=== PATIENT | female | born 1945 | race Two or more races ===

== ENCOUNTER → 2016-04-04 | Outpatient (CLI) | payer MEDICARE ==
[~2016-04-04] MED LIST: ASPI325T PO; ATEN100T PO; ATOR1TAB21 PO; BAYE1TAB5 PO; BROV15NE IN; BUDE0.254 INH; DOXY100C PO; FERR325T3 PO; GABA600T PO; GLIP10TA6 PO; HYDR-3713 PO; HYDR12CA PO; INSULANT SC; INVO300T PO; KETO10TAB PO; LISI10TA4 PO; METF1000 PO; NEUR300C PO; NYST100024 TOP; POLY33502 PO; VITA500046 PO; ZOLO100T PO
--- NOTE | 2016-04-04 15:19 | REP ---
Clinical: Follow-up effusion and infiltrates . Comparison: 12/22/2015 . Technique: PA and lateral. Findings: The mediastinum and cardiac silhouette are normal. The lung ferrell are clear and without acute consolidation, effusion, or pneumothorax. Previous right lower lobe consolidation and effusion has resolved. The skeletal structures are intact and normal. Impression: No acute cardiopulmonary process. Complete resolution to the previous basilar infiltrate and effusion. Signed by Danis Greenfield MD 04/04/2016 03:10 P
== END ==
LOC: M SMT 14:47
PROVIDERS: ATTEND Internal Medicine Pulmonary Disease
DX: J90 Pleural effusion, not elsewhere classified (principal)

== ENCOUNTER → 2016-06-04 | Outpatient (REF) | payer MEDICARE | LOC: M LAB REF 17:05 | PROVIDERS: ATTEND Urology | DX: C67.9 Malignant neoplasm of bladder, unspecified (principal) ==

== ENCOUNTER 2016-07-24 08:13 | Inpatient (IN) | payer MEDICARE ==
[~2016-07-24] VITALS: Ht 160 cm; Wt 55.7 kg
[2016-07-24] VITALS (27 sets, daily range): BP systolic 77–148; BP diastolic 42–66; O2SAT 94
[2016-07-24] MEDS ORDERED: NS 500 ML IV ONE ×3 (08:45→22:00)
[2016-07-24] MEDS ORDERED: HEPARIN SOD (PORCINE) 5000 UNITS/ML VIAL SC SCH (09:00)
[2016-07-24] MEDS: DOCUSATE SODIUM 100 MG CAP PO SCH ×2 (09:00→21:00)
[2016-07-24] MEDS: MOM 30ML SUSPENSION UDC PO SCH (09:00)
[2016-07-24 09:07] LABS: MEAN CORPUSCULAR HEMOGLOBIN 29.2 pg (27.0-33.0); MEAN CORPUSCULAR HGB CONC 31.9 g/dl (32.0-36.5); MEAN CORPUSCULAR VOLUME 91.7 fl (80.0-96.0); PLATELET COUNT, AUTOMATED 107 k/mm3 (150-450); RED CELL DISTRIBUTION WIDTH 14.7 % (11.5-14.5); WHITE BLOOD COUNT 16.2 K/mm3 (4.0-10.0)
[2016-07-24 09:18] LABS: ALBUMIN 2.2 GM/DL (3.2-5.2); ALBUMIN/GLOBULIN RATIO 0.5 (1.00-1.93); BILIRUBIN,DIRECT 0.5 MG/DL (0.0-0.2); CALCIUM LEVEL 8.4 MG/DL (8.8-10.2); CREATININE FOR GFR 2.07 MG/DL (0.55-1.02); GLOMERULAR FILTRATION RATE 25.2 (>39); POTASSIUM SERUM 3.5 MEQ/L (3.5-5.1); TOTAL PROTEIN 6.6 GM/DL (6.4-8.2)
[2016-07-24 09:21] LABS: BANDS 24 % (< 11)
[2016-07-24 09:22] LABS: ANISOCYTOSIS 1+; POIKILOCYTOSIS 1+
[2016-07-24 09:22] LABS: ABG BASE EXCESS -10.9 (-2.0-2.0); ABG HCO3 14.8 MEQ/L (22.0-26.0); ABG PARTIAL PRESSURE CO2 32.6 mmHg (35.0-45.0); ABG PARTIAL PRESSURE O2 68.9 mmHg (75.0-100.0); ABG STANDARD HCO3 15.7 MEQ/L (22.0-26.0); ABG TOTAL CO2 15.8 MEQ/L (23.0-31.0); ABG pH (ARTERIAL) 7.276 UNITS (7.350-7.450)
--- NOTE | 2016-07-24 09:26 | REP ---
PORTABLE CHEST: AP portable view of the chest is performed. Huge mass density is seen in the right upper lobe. Left lung is clear. Heart is normal is size. There is calcification of the thoracic aorta. IMPRESSION: Huge right upper lobe mass/consolidation. Signed by Boy Barrios MD 07/24/2016 07:43 P
[2016-07-24] MEDS ORDERED: CEFEPIME HCL 2 GM in D5W MINI-BAG PLUS 50 ML IV ONE (09:30)
[2016-07-24] MEDS ORDERED: HumuLIN R (REGULAR) INSULIN (NovoLIN R) **100U/ML** PER UNIT IV ONE (10:00)
[2016-07-24 10:05] LABS: INR 1.08
--- NOTE | 2016-07-24 10:24 | REP ---
CT CHEST WITHOUT IV CONTRAST: CT chest performed without IV contrast. Comparison made with prior study of 12/20/2015. No infiltrate is seen on the left. On the right there is diffuse consolidative opacity throughout the entire right upper lobe. Underlying empyema cannot be excluded without IV contrast. There are multiple enlarged mediastinal lymph nodes up to 2 cm in short axis dimension. Underlying right hilar mass cannot be excluded without IV contrast. Heart is normal in size. There is no pericardial effusion. Visualized upper abdominal structures show a cyst in the upper pole of the right kidney and left adrenal gland thickening. IMPRESSION: Diffuse consolidative opacity throughout the right upper lobe. Underlying empyema cannot be excluded without IV contrast. Multiple enlarged mediastinal lymph nodes are present. Signed by Boy Barrios MD 07/24/2016 07:45 P
[2016-07-24] MEDS ORDERED: D5W/0.9% SODIUM CHLORIDE 1,000 ML IV SCH (10:42)
[2016-07-24] MEDS ORDERED: ONDANSETRON 4MG/2ML VIAL (J2405) IV PRN (10:45)
[2016-07-24] MEDS ORDERED: NORCO, ANEXSIA 5/325MG TABLET (HYDROcodone/ACETAMINOPHEN) PO PRN (10:45)
[2016-07-24] MEDS ORDERED: ACETAMINOPHEN TAB 650MG DOSE (2X325MG) PO PRN (10:45)
[2016-07-24] MEDS ORDERED: LEVALBUTEROL 1.25 MG/0.5 ML CONCENTRATE NEB NEB PRN (10:45)
[2016-07-24] MEDS ORDERED: BISACODYL 10 MG SUPP PR PRN (10:45)
[2016-07-24] MEDS ORDERED: PERCOCET 5MG/325MG TAB PO PRN ×2 (10:45)
[2016-07-24] MEDS ORDERED: LR 2,000 ML IV ONE (11:15)
[2016-07-24] MEDS ORDERED: BREO1INH INH (11:23)
[2016-07-24] MEDS ORDERED: DEXTROSE 50% 50 ML SYRINGE IV PRN (11:30)
[2016-07-24] MEDS ORDERED: GLUCAGON FOR INJ 1 MG VIAL (J1610) SC PRN (11:30)
[2016-07-24] MEDS ORDERED: GLUCOSE 4 GM CHEW TABLET PO PRN (11:30)
[2016-07-24] MEDS ORDERED: HumaLOG INSULIN (NovoLOG) PER UNIT SC SCH ×2 (12:00→21:00)
[2016-07-24 12:52] LABS: REASON FOR REVIEW COMPREHENSIVE REVIEW
[2016-07-24 12:56] LABS: MEAN CORPUSCULAR HGB CONC 31.7 g/dl (32.0-36.5); MEAN CORPUSCULAR VOLUME 91.4 fl (80.0-96.0); RED CELL DISTRIBUTION WIDTH 14.8 % (11.5-14.5); WHITE BLOOD COUNT 10.3 K/mm3 (4.0-10.0)
[2016-07-24] MEDS ORDERED: LR 1,000 ML IV SCH (13:00)
[2016-07-24 13:14] LABS: ALBUMIN 1.9 GM/DL (3.2-5.2); ALBUMIN/GLOBULIN RATIO 0.49 (1.00-1.93); BILIRUBIN,TOTAL 0.7 MG/DL (0.2-1.0); CALCIUM LEVEL 7.8 MG/DL (8.8-10.2); CREATININE FOR GFR 2.01 MG/DL (0.55-1.02); GLOMERULAR FILTRATION RATE 26.1 (>39); POTASSIUM SERUM 3.5 MEQ/L (3.5-5.1); TOTAL PROTEIN 5.8 GM/DL (6.4-8.2)
[2016-07-24] MEDS ORDERED: LEVEMIR (INSULIN DETEMIR) 1 UNITS/0.01ML SC ONE (13:15)
[2016-07-24] MEDS: SERTRALINE 100 MG TAB PO SCH ×2 (13:42→21:00)
[2016-07-24] MEDS: GABAPENTIN 300 MG CAP PO SCH ×2 (13:42→21:00)
[2016-07-24] MEDS: PANTOPRAZOLE 40MG INJ (PROTONIX) (C9113) IV SCH (13:42)
[2016-07-24] MEDS ORDERED: LEVALBUTEROL 1.25 MG/0.5 ML CONCENTRATE NEB NEB SCH (14:00)
[2016-07-24] MEDS ORDERED: VANCOMYCIN HCL 1,000 MG, VIAL MATE ADAPTER 1 EACH in D5W 250 ML IV ONE (14:00)
[2016-07-24] MEDS: IPRATROPIUM 0.5MG/ALBUTEROL 2.5MG INH SOL UD 3ML (DUONEB)(J7620) NEB SCH ×2 (14:00→19:15)
--- NOTE | 2016-07-24 14:25 | HPE ---
DATE OF ADMISSION: 07/24/2016 PRIMARY CARE PROVIDER: Lucie Mccormick SPECIAL TAX AUDITOR: Dr. Erickson THORACIC SURGEON: Dr. Smith UROLOGIST: Dr. Astudillo CHIEF COMPLAINT: Cough, confusion. HISTORY OF PRESENT ILLNESS: The patient is a 70-year-old female who lives alone. She has a history of 180 pack years, smoking 3 packs per day for over 60 years, with ongoing tobacco use. She was recently admitted in September with empyema of the right lower lobe and had a pigtail catheter at that time. She subsequently was readmitted in December with right middle lobe pneumonia at that time. At this time, the patient was in her usual state of health on Friday; however, over the weekend she began to develop worsening of her chronic cough, weakness and feeling unwell. She did not call for help. Her son and [id number]-oh-rej went to check in on her and found her to be confused and unable to get up today, prompting her to present to the emergency room. At the present time, the patient tells me that she feels terrible and that she is having difficulty with breathing, coughing more than usual, but otherwise is not remembering what happened over the last few days very well. She tells me that she is too tired to answer many questions. As such, a great deal of the history is also provided from chart review and discussions with the patient's [id number] who is bedside. PAST MEDICAL HISTORY: 1. Chronic obstructive pulmonary disease (COPD) without oxygen dependence. 2. Hypertension. 3. Depression. 4. Dyslipidemia. 5. Tobacco abuse. 6. Neuropathy. 7. 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 ALLERGIES: - RED DYE - SULFA DRUGS - BACITRACIN - CORTISONE - FLUOXETINE - NEOMYCIN - POLYMYXIN - TRAMADOL - OXYCODONE caused itching SURGICAL HISTORY: 1. Hysterectomy. 2. Transurethral bladder tumor resection. SOCIAL HISTORY: She lives alone. She has a 180 pack year tobacco history with some ongoing use. At her baseline, she is independent of activities of daily living (ADLs) and is still driving. Two alcoholic beverages per month. No illicit drug use. She has a medical orders for life-sustaining treatment (MOLST) form completed at home. The [id number] will be bringing it in later today. FAMILY HISTORY: Noncontributory. REVIEW OF SYSTEMS: Negative other than history of present illness (HPI). HOME MEDICATIONS: - BREO ELLIPTA 100/25 inhaled daily - Sertraline 100 mg twice a day - metformin 1 gram twice a day - lisinopril 10 mg twice a day - Lantus 20 units daily - hydrochlorothiazide 12.5 mg daily - Neurontin 600 mg twice a day - atorvastatin 20 mg at bedtime - atenolol 100 mg daily - hydrocodone/acetaminophen 5/325 mg every 4 hours as needed pain PHYSICAL EXAMINATION: VITAL SIGNS: Oxygen saturation 90% on 2 liters nasal cannula. Temperature 98.3. Pulse 89. Respiratory rate 30. Blood pressure 127/59. GENERAL: She is a frail, elderly, female sitting up in bed. She is mildly tachypneic and lethargic. HEENT: Bitemporal wasting. Very dry mucous membranes. She is able to answer questions, but she does appear to be somewhat breathless. CARDIOVASCULAR EXAM: S1, S2, regular. No additional heart sounds appreciated. RESPIRATORY EXAM: Diminished breath sounds in the right upper lobe, but otherwise fairly good air movement. ABDOMINAL EXAM: Bowel sounds present. Abdomen is soft. EXTREMITIES: No clubbing, cyanosis or edema. LABORATORY STUDIES: WBC 16.3, hemoglobin 11.4, hematocrit 35.7 and platelet count 107. Chemistry panel: Sodium 126, potassium 3.5, chloride 89, bicarbonate 16, anion gap 21, BUN 107, creatinine 2.0, fasting glucose 386, lactic acid 3.9, AST 125, troponin 0.28, BNP 1240, TSH 4.8, INR 1.0. Urinalysis (UA) is positive for glucose and protein, small amount of WBCs and RBCs, 1+ bacteria. Urine culture is pending. Sputum culture is pending. Blood cultures are pending. IMAGING: The patient did have a CT scan of the chest that revealed diffuse consolidative opacity throughout the right upper lobe. Underlying emphysema cannot be excluded without IV contrast. Multiple large mediastinal lymph nodes are present. ASSESSMENT AND PLAN: This is a 70-year-old female presenting with what appears to be severe right upper lobe pneumonia. PROBLEMS: 1. Severe pneumonia. 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 As such, she will be admitted to the intensive care unit. Will provide her with vancomycin and Zosyn. I have already spoken with Dr. Smith who has agreed to see the patient in consultation. He has seen her previously. The patient will be on oxygen and likely benefit from a lung biopsy when stabilized. Will provide her with DuoNebs. Her arterial blood gas reveals metabolic acidosis with hypoxia. She will have to be monitored closely for hypoxic respiratory failure. Tobacco cessation counseling advised. The patient has underlying COPD. Will titrate for oxygen saturation 88-92%. The patient's sepsis does appear to be quite severe given her elevated lactic acid and her leukocytosis. Please note, it is unclear if there is an underlying malignancy beneath her pneumonia causing an post obstructive pneumonia. It would be relatively fast growing given her relatively recent chest x-rays that were not revealing. Could consider a needle biopsy once the patient is stabilized via CT guidance. 2. Acute renal failure. Appears to be prerenal in nature. BUN and creatinine ratio is greater than 40 to 1. Her significant uremia is likely the etiology for her anion gap acidosis. She is hypochloremic and hypernatremic related to hypovolemia. I will provide her with lactated ringers 2 liter bolus at this time and then continue her at 125 an hour. I would not be surprised if she required additional fluids. It has been four hours since her initial labs were checked. I will recheck her BMP to assess her response to therapy. 3. Type 2 diabetes and hyperglycemia. The patient did receive regular insulin in the emergency room. Her finger stick is 386. I will keep her nothing by mouth and place her on a sliding scale. Although she is hyperglycemic and has an anion gap, I feel that her anion gap acidosis is more likely related to her significantly elevated BUN and not secondary to diabetic ketoacidosis (DKA). She does not have any abdominal symptoms at this time. There is also the element of lactic acidosis contributing as well. 4. Elevated AST and CK. Unclear etiology at this time. Will check right upper quadrant ultrasound and provide her with IV fluids. It may be related to the sepsis syndrome. 5. Elevated BNP and equivocal troponin. Unclear etiology at this time. The patient does not appear to be in overt heart failure. Will trend her cardiac enzymes. She appears to be very significantly dry and in the face of her elevated BNP will hydrate her. 6. Thrombocytopenia. Appears to be relatively chronic, however, is worse at this time. I suspect that with aggressive fluid hydration, her platelets will drop below 100 and as such I will provide her with no pharmacological DVT prophylaxis. However, will place her with some thromboembolic deterrent stockings (TEDS) and sequentials. 7. Diabetic neuropathy. Will continue with Neurontin. 8. Depression. Continue with her Sertraline 9. Hypertension. Will likely hold her lisinopril, hydrochlorothiazide and atenolol. 10. Dyslipidemia. Will hold her atorvastatin given that she has abnormal liver function tests at this time. DISPOSITION: The patient is admitted to the medical intensive care unit for close monitoring. Her clinical status is guarded at this time. Will continue to follow this patient very closely.
[2016-07-24] MEDS: PIPERACILLIN/TAZOBACTAM SOD 2.25 GM in D5W MINI-BAG PLUS 50 ML IV SCH (14:42)
--- NOTE | 2016-07-24 14:53 | PHACANCOPD ---
PHARMACY VANCOMYCIN DOSING Pt Demographics Demographics Patient Age:70 , Weight:52.500 , Gender: female Adjusted Body Weight Date: 07/24/16, Adjusted Body Weight: Kg Events Past 24 Hours Events Past 24 Hours: YES: Elevation in WBC, NO: Dialysis, Diuretic Therapy, Change in CrCl, Fever, Pending Diagnostics, Pending Procedures, Other Vancomycin Vancomycin indication: MRSA PNA Vancomycin Target Ranges: 15-20 mcg/ml Vancomycin Load Y/N: Yes Load Dose Date Time Vancomycin Load Dose: Date: Time: Vancomycin Dose Date: 07/24/16. Current Vancomycin Dose: [1gm IV q24h] Intermittent Dosing?: No Labs Labs Item Value Date Time White Blood Count 16.2 K/mm3 H 07/24/16 0841 White Blood Count 10.3 K/mm3 H 07/24/16 1227 Creatinine 2.01 MG/DL H 07/24/16 1227 Blood Urea Nitrogen 105 MG/DL H 07/24/16 1227 Vital Signs Label Value Date Time Patient Temperature 98.3 degrees F 07/24/16 08 Temperature Source Temporal 07/24/16 0816 Micro Microbiology 07/24/16 Blood Culture, Received Pending 07/24/16 Blood Culture, Received Pending 07/24/16 Gram Stain - Final, Resulted 07/24/16 Sputum Culture, Resulted Pending 07/24/16 Urine Culture, Received Pending Creatinine Clearance Date:07/24/16. Creatinine Clearance: . Assessment and Plan Maintaining Current Dose?: Yes Reason for dose change: No Dose Change Pharmacist Note Pharmacist Note Date: 07/24/16. Pharmacist note: Patient is being treated for possible MRSA Pneumonia. She has an elevated WBC count but is currently afebrile. Her lactic acid and CRP are elevated as well. She has a history of MRSA and Vancomycin use at our facility. In the past Lula was stable on Vancomycin 750mg q12h. However her kidney function is much worse this admission so she was given 1gm of Vancomycin at 1400 today, then started on Vancomycin 1gm IV q24h starting tomorrow morning at 8am. She has blood, sputum, and urine cultures pending. There is currently no H&P but expect her kidney function to improve during the admission. We will continue to monitor her and make adjustments as needed. BIANCA STEELE [facility] Jul 24, 2016 14:53
--- NOTE | 2016-07-24 14:54 | REP ---
Abdominal right upper quadrant ultrasound: There are multiple non mobile gallbladder polyps versus adherent calculi. There is no gallbladder wall thickening or pericholecystic fluid. There is no intrahepatic or extrahepatic biliary duct dilatation, the common duct measures 6 mm in diameter. The hepatic parenchyma is homogeneous and otherwise unremarkable. The pancreas is obscured by bowel. There is a 2.5 cm right renal cyst. There is no right renal hydronephrosis, calculus or mass. Right kidney is normal size measuring 9.7 cm craniocaudad length. Impression: Multiple adherent gallbladder calculi versus gallbladder polyps versus combination. Right renal cyst. Otherwise, negative abdominal right upper quadrant ultrasound. Signed by Boy Kiser MD 07/24/2016 02:46 P
--- NOTE | 2016-07-24 16:29 | ECGEPIP ---
Stationary ECG Study [facility] - ED Test Date: 2016-07-24 Pat Name: ELA LIVINGSTON Department: Room: [place] [address] Gender: F Supervisor Of Guidance And Testing: naga : 1945 Requested By: Mat Benavidez Order Number: [id number] Reading MD: Tika Ortega Measurements Intervals [place] Rate: 87 P: 71 KS: 132 QRS: 48 QRSD: 118 T: 63 QT: 371 QTc: 447 Interpretive Statements SINUS RHYTHM POSSIBLE RIGHT ATRIAL ENLARGEMENT POSSIBLE LEFT ATRIAL ENLARGEMENT PROBABLE INFERIOR MYOCARDIAL INFARCTION, OF INDETERMINATE AGE ST DEVIATION AND MODERATE T-WAVE ABNORMALITY, CONSIDER ISCHEMIA Electronically Signed On 07-24-2016 16:29:17 EDT by Tika Ortega
[2016-07-24] MEDS: IPRATROPIUM 0.5MG/ALBUTEROL 2.5MG INH SOL UD 3ML (DUONEB)(J7620) NEB PRN (16:35)
[2016-07-24] MEDS ORDERED: NALOXONE INJ 0.4 MG/1 ML VIAL (J2310) IV STA (17:07)
[2016-07-24] MEDS ORDERED: NALOXONE INJ 0.4 MG/1 ML VIAL (J2310) As Ordered ONE (17:07)
[2016-07-24 17:37] LABS: ABG BASE EXCESS -8.8 (-2.0-2.0); ABG HCO3 18.4 MEQ/L (22.0-26.0); ABG PARTIAL PRESSURE CO2 44.9 mmHg (35.0-45.0); ABG PARTIAL PRESSURE O2 67.7 mmHg (75.0-100.0); ABG STANDARD HCO3 17.2 MEQ/L (22.0-26.0); ABG TOTAL CO2 19.8 MEQ/L (23.0-31.0)
[2016-07-24 17:40] LABS: ABG pH (ARTERIAL) 7.231 UNITS (7.350-7.450)
--- NOTE | 2016-07-24 19:06 | REP ---
PORTABLE CHEST: AP portable view of the chest is performed and compared to prior study of the same day. Right upper lobe consolidation is unchanged. There is increased linear atelectatic change in the right lung base. Left lung is unchanged. Cardiomediastinal silhouette is unchanged. IMPRESSION: Mild increase in right basilar linear atelectatic change. Signed by Boy Barrios MD 07/24/2016 07:50 P
[2016-07-24 19:32] LABS: ALBUMIN 1.9 GM/DL (3.2-5.2); ALBUMIN/GLOBULIN RATIO 0.46 (1.00-1.93); BILIRUBIN,TOTAL 0.8 MG/DL (0.2-1.0); CALCIUM LEVEL 7.9 MG/DL (8.8-10.2); CREATININE FOR GFR 1.95 MG/DL (0.55-1.02); POTASSIUM SERUM 3.7 MEQ/L (3.5-5.1)
[2016-07-24] MEDS ORDERED: NS 1,000 ML IV SCH (20:30)
--- NOTE | 2016-07-24 22:10 | REPUSA ---
Clinical history: Renal failure. Findings: The urinary bladder is contracted, but appears grossly unremarkable. A Rand catheter is i n place. No urinary bladder masses are seen. The right kidney measures 99.6 x 5.8 x 4.2 cm. The left kidney measures 12.5 x 5.7 x 5.1 cm. The kidneys demonstrate normal echotexture and echogenicity. Th ere is no evidence of hydronephrosis or nephrolithiasis. No renal masses are seen. No free fluid is a ppreciated. The spleen is enlarged measuring 13.9 cm in longest diameter. Impression: 1. Unremarkable ultrasound examination of the kidneys. 2. Urinary bladder is catheterized and contracted. 3. Splenomegaly.
[2016-07-24 22:16] LABS: ABG BASE EXCESS -5.9 (-2.0-2.0); ABG HCO3 21.6 MEQ/L (22.0-26.0); ABG PARTIAL PRESSURE CO2 51.8 mmHg (35.0-45.0); ABG PARTIAL PRESSURE O2 62.4 mmHg (75.0-100.0); ABG STANDARD HCO3 19.4 MEQ/L (22.0-26.0); ABG TOTAL CO2 23.2 MEQ/L (23.0-31.0)
[2016-07-24 22:18] LABS: ABG pH (ARTERIAL) 7.238 UNITS (7.350-7.450)
[2016-07-24] MEDS ORDERED: NOREPINEPHRINE 4 MG/4 ML AMP As Ordered ONE (22:34)
[2016-07-24] MEDS ORDERED: NOREPINEPHRINE BITARTRATE 8 MG in D5W 500 ML IV SCH (22:45)
[2016-07-25] VITALS (35 sets, daily range): BP systolic 98–156; BP diastolic 52–85; O2SAT 92–93
[2016-07-25] MEDS: PIPERACILLIN/TAZOBACTAM SOD 2.25 GM in D5W MINI-BAG PLUS 50 ML IV SCH ×4 (00:10→22:55)
[2016-07-25 00:29] LABS: ABG BASE EXCESS -6.4 (-2.0-2.0); ABG HCO3 20.1 MEQ/L (22.0-26.0); ABG PARTIAL PRESSURE CO2 44.4 mmHg (35.0-45.0); ABG PARTIAL PRESSURE O2 65.2 mmHg (75.0-100.0); ABG TOTAL CO2 21.5 MEQ/L (23.0-31.0); ABG pH (ARTERIAL) 7.274 UNITS (7.350-7.450)
[2016-07-25 05:43] LABS: ABG BASE EXCESS -5.6 (-2.0-2.0); ABG HCO3 20.6 MEQ/L (22.0-26.0); ABG PARTIAL PRESSURE CO2 43.2 mmHg (35.0-45.0); ABG PARTIAL PRESSURE O2 76.5 mmHg (75.0-100.0); ABG STANDARD HCO3 19.8 MEQ/L (22.0-26.0); ABG TOTAL CO2 21.9 MEQ/L (23.0-31.0); ABG pH (ARTERIAL) 7.296 UNITS (7.350-7.450)
[2016-07-25 05:59] LABS: DIFF SLIDE NUMBER 74; MEAN CORPUSCULAR HEMOGLOBIN 28.4 pg (27.0-33.0); MEAN CORPUSCULAR HGB CONC 31.8 g/dl (32.0-36.5); MEAN CORPUSCULAR VOLUME 89.5 fl (80.0-96.0); RED CELL DISTRIBUTION WIDTH 14.9 % (11.5-14.5); WHITE BLOOD COUNT 7.9 K/mm3 (4.0-10.0)
[2016-07-25 06:00] LABS: PLATELET COUNT, AUTOMATED 50 k/mm3 (150-450)
[2016-07-25 06:15] LABS: ALBUMIN 1.7 GM/DL (3.2-5.2); ALBUMIN/GLOBULIN RATIO 0.57 (1.00-1.93); BILIRUBIN,TOTAL 0.8 MG/DL (0.2-1.0); CREATININE FOR GFR 2.03 MG/DL (0.55-1.02); GLOMERULAR FILTRATION RATE 25.8 (>39); PHOSPHORUS LEVEL 5.6 MG/DL (2.5-4.9); POTASSIUM SERUM 3.5 MEQ/L (3.5-5.1); TOTAL PROTEIN 4.7 GM/DL (6.4-8.2)
[2016-07-25 06:39] LABS: BANDS 2 % (< 11)
[2016-07-25 06:41] LABS: ANISOCYTOSIS 1+; BURR CELLS 2+
--- NOTE | 2016-07-25 06:41 | RO ---
DATE OF PROCEDURE: 07/24/2016 PREPROCEDURE DIAGNOSIS: Hypotension. POSTOPERATIVE DIAGNOSIS: Hypotension. PROCEDURE: Right internal jugular (IJ) triple lumen central line. SURGEON: Dr. Susanne Tijerina RESEARCH PROGRAMMER: Nursing staff [place] ANESTHESIA: 1% local lidocaine. SEDATION: None. VENTILATION: 50% Ventimask. ESTIMATED BLOOD LOSS: 10 mL. The patient was placed in supine position. The site was cleaned with ChloraPrep and covered in the usual manner. Sterile ultrasound probe with sterile probe cover was used. The patient's right IJ was located. 1% local lidocaine was injected subcutaneously. With ultrasound guidance, subsequently the needle was inserted. A flash of blood was obtained. A wire was inserted through the needle and the needle was removed. The site was dilated. A triple lumen central line was placed with Seldinger technique. The wire was removed and all three ports of the line were flushed and capped. The triple lumen central line was secured with stitches and clamps. Dressing was placed. The patient tolerated the procedure with no complications. CVP was obtained. An x-ray was ordered for confirmation of triple lumen central line.
[2016-07-25 06:42] LABS: TOXIC GRANULATION 3+; TOXIC VACUOLATION 1+
[2016-07-25] MEDS ORDERED: HumaLOG INSULIN (NovoLOG) PER UNIT SC SCH (07:30)
[2016-07-25] MEDS: IPRATROPIUM 0.5MG/ALBUTEROL 2.5MG INH SOL UD 3ML (DUONEB)(J7620) NEB SCH ×3 (07:32→19:46)
[2016-07-25] MEDS ORDERED: VANCOMYCIN HCL 1,000 MG, VIAL MATE ADAPTER 1 EACH in D5W 250 ML IV SCH (08:00)
[2016-07-25] MEDS: PANTOPRAZOLE 40MG INJ (PROTONIX) (C9113) IV SCH (08:29)
[2016-07-25] MEDS: GABAPENTIN 300 MG CAP PO SCH (08:34)
[2016-07-25] MEDS: DOCUSATE SODIUM 100 MG CAP PO SCH ×2 (08:34→20:25)
[2016-07-25] MEDS: MOM 30ML SUSPENSION UDC PO SCH (08:34)
[2016-07-25] MEDS: SERTRALINE 100 MG TAB PO SCH ×2 (08:34→20:25)
--- NOTE | 2016-07-25 08:51 | REP ---
PORTABLE CHEST: AP portable view of the chest is performed. The lungs are unchanged in appearance. Dense consolidated opacity in the right upper lobe is unchanged. The cardiomediastinal silhouette is unchanged. A right central venous catheter is seen with the tip in the superior vena cava. Signed by Boy Barrios MD 07/25/2016 10:00 A
[2016-07-25] MEDS ORDERED: PANTOPRAZOLE 40MG TAB (PROTONIX) PO SCH (09:00)
--- NOTE | 2016-07-25 09:45 | REP ---
PORTABLE CHEST: AP portable view of the chest is performed. Comparison is made with a prior exam of 07/24/2016. Right upper lobe consolidated opacity is unchanged. The other lung ferrell are unchanged. Cardiomediastinal silhouette has not changed. Right central venous catheter is again noted. IMPRESSION: Stable exam. Signed by Boy Barrios MD 07/25/2016 10:01 A
--- NOTE | 2016-07-25 10:08 | IPNPDOC ---
Date Seen The patient was seen on 07/25/16. Progress Note Overnight events: The patient was briefly hypotensive receive 500 mL normal saline bolus and placement of central venous catheter has not required any pressor support fluid. The patient was found be retaining CO2 and started on BiPAP improvement in her PCO2 on arterial blood gas. SUBJECTIVE: Patient is resting comfortably in bed on BiPAP she is arousable to verbal stimuli but does not follow commands and does not answer questions in a coherent manner OBJECTIVE PHYSICAL EXAMINATION: VITAL SIGNS: Please see below. GENERAL: Frail elderly female sleeping in bed peacefully on anterolateral room she does not appear to be in acute distress HEENT: Dry mucous membranes cranial nerves II through XII appear to be intact she does not cooperate with formal testing CARDIOVASCULAR: S1-S2 regular noticed heart sounds appreciated. RESPIRATORY: Scattered rales throughout both bilateral lower lobes diminished breath sounds in the right upper lobe. ABDOMINAL: Sounds present abdomen soft nontender EXTREMITIES: No clubbing cyanosis or edema NEUROLOGICAL: Spontaneously Moves all 4 extremities LABORATORY DATA: Please see below. MICROBIOLOGY: Please see below. IMAGING: CT chest:Diffuse consolidative opacity throughout the right upper lobe. Underlying empyema cannot be excluded without IV contrast. Multiple enlarged mediastinal lymph nodes are present. Chest x-ray from 07/24/2016:AP portable view of the chest is performed. The lungs are unchanged in appearance. Dense consolidated opacity in the right upper lobe is unchanged. T he cardiomediastinal silhouette is unchanged. A right central venous catheter is seen with the tip in the superior vena cava Liver ultrasound:Multiple adherent gallbladder calculi versus gallbladder polyps versus combination. Right renal cyst. Otherwise, negative abdominal right upper quadrant ultrasound. Renal ultrasound:1. Unremarkable ultrasound examination of the kidneys. 2. Urinary bladder is catheterized and contracted. 3. Splenomegaly. DVT prophylaxis ordered?: Sequentials and teds no pharmacological agents secondary to thrombocytopenia ASSESSMENT AND PLAN: This is a 70-year-old female with respiratory failure and renal failure. Respiratory: The patient presented in acute hypoxic respiratory failure which did initially respond to nasal cannula she had a recent empyema in the right lower lobe which was treated with a pigtail catheter and resolved subsequently she developed right middle lobe pneumonia which was treated with broad-spectrum antibiotics and then resolved now she is at this occasion with complete opacification of her right upper lobe and is being treated with pneumonia with broad-spectrum antibiotics there is suspicion for an underlying mass hiding within the opacity but which we are unable to see without IV contrast given her present renal condition this is not an option. Overnight the patient began to develop hypercapnic respiratory failure necessitating BiPAP I have counseled to Dr. Esparza of pulmonary was agreed to see the patient this morning in consultation. The patient has a history of COPD and as such she is on duo nebs she does not appear to be wheezy urine or having a Acute decompensation. Dr. Diane help is been appreciated Infectious disease: The patient is on vancomycin and Zosyn she has a history of MRSA pneumonia she did present with appear to be severe sepsis with leukocytosis elevated lactic acid focal consolidation on chest x-ray and a history of increased cough. Lactic acidosis has resolved she is hemodynamically stable at the present time we'll continue with broad-spectrum antibiotics and follow-up her cultures. 22 blood culture was are positive for gram-positive cocci in pairs and chains highly suggestive of strep pneumoniae. We will repeat another bottle of blood cultures today. The patient has been having diarrhea or GI PCR panel is negative for infectious etiologies may be antibiotic related. Cardiovascular: The patient was hypotensive this a.m. she has received greater than 4 L of fluid resuscitation at this time she appears to be hemodynamically stable we will hold off any further fluid resuscitation. On exam she does have scattered rales which were not present at the time of admission there is concern that there may be some element of pulmonary edema she does have slightly elevated BNP however or although suspect her AT assisted still be depleted. She does have an equivocal troponin likely related to demand ischemia we'll check an echocardiogram she does not have concerning EKG changes for acute coronary syndrome. Her home antihypertensives atenolol hydrochlorothiazide and lisinopril are on hold. Heme: The patient's leukocytosis has resolved quite impressively fast she's had a drop in all 3 of her cell lines suspect dilutional related to her significant fluid resuscitation. The patient did have thrombocytopenia at the time of presentation which appears to be quite chronic but this is somewhat worse than usual likely related to her acute sepsis. The patient does have an elevated AST LDH and BUN however her peripheral smear does not reveal schistocytes or concern for acute hemolytic anemia. There is concern for anemia of chronic disease versus multifactorial anemia. She is not on any pharmacological DVT prophylaxis given her thrombocytopenia no evidence of active bleeding. Metabolic: Metabolic acidosis at the time of presentation likely multifactorial in nature related to significant uremia lactic acidosis as well as hyperglycemia. The patient did have an anion gap of presentation. At this time the patient no longer has an anion gap lactic acidosis has resolved her hyperglycemia is markedly improved her acidosis has improved as well however she still does remain acidotic likely secondary to her significant uremia. Her acute renal failure remains a persistent problem and unimproved despite greater than 4 L of fluid resuscitation and maintained hemodynamics she has a normal renal ultrasound as well without evidence of obstruction which leads me to the concerned that she may have some intrinsic renal pathology as well I place a consult to Dr. Sharif will see the patient this morning I have sent ANCA studies. When she presented she was quite hyponatremic and hypochloremic this has improved with fluid resuscitation likely was secondary to hypovolemia. Alimentary: The patient is on GI prophylaxis she is nothing by mouth while requiring noninvasive mechanical ventilation. The patient has an elevated AST which I suspect may be related to her acute renal failure her liver function tests are otherwise fairly unremarkable it does not appear as though she is undergoing any hemolytic anemia she is not undergoing an acute DC. Neurologic: The patient appears to be behaving encephalopathic I am suspicious for uremic encephalopathy given that she is oxygenating adequately at this time is maintaining appropriate hemodynamics have placed a consult to nephrology and wonder she would not benefit from hemodialysis versus CRRT DISPOSITION: Her prognosis is quite guarded at this time we'll continue to follow very closely in the medical intensive care unit. VS, I&O, 24H, Fishbone Vital Signs/I&O Vital Signs Date Time Temp Pulse Resp B/P (MAP) Pulse Ox O2 Delivery O2 Flow Rate FiO2 07/25/16 08:08 93 20 138/61 (86) 95 NIPPV (BIPAP/CPAP) 40 07/25/16 07:38 98.6 07/24/16 22:00 5.0 I&O- Last 24 Hours up to 6 AM 07/25/16 06:00 Intake Total 3415 ml Output Total 172 ml Balance 3243 ml Laboratory Data 24H LABS Laboratory Tests 2 07/24/16 10:43: Urine Appearance CLOUDYH, Urine Color DENYS, Urine pH 5.0, Urine Specific Hardy 1.015, Urine Protein 1+H, Urine Glucose (UA) 1+H, Urine Ketones NEGATIVE , Urine Urobilinogen 0.2, Urine Bilirubin NEGATIVE, Urine Leukocyte Esterase NEGATIVE, Urine Blood NEGATIVE, Urine Nitrite NEGATIVE, Urine WBC (Auto) 7H, Urine RBC (Auto) 8H, Urine Hyaline Casts (Auto) 5, Urine Bacteria (Auto) 1+H, Urine Squamous Epithelial Cells 0, Urine Mucus (Auto) SMALL, Urine Sperm (Auto) 07/24/16 11:47: Bedside Glucose (Misc Panel) 334H 07/24/16 12:27: Differential Slide Review Report, Differential Pathologist's Review COMPREHENSIVE REVIEW, Peripheral Blood Smear Path Consult PERIPHERAL SMEAR, Anion Gap 17H, Glomerular Filtration Rate 26.1L, Lactic Acid Level 3.4*H, Blood Urea Nitrogen 105H, Creatinine 2.01H, Sodium Level 128L, Potassium Level 3.5, Chloride Level 94L, Carbon Dioxide Level 17L, Calcium Level 7.8L, Aspartate Amino Transf (AST/SGOT) 155H, Alanine Aminotransferase (ALT/SGPT) 31, Alkaline Phosphatase 77, Total Bilirubin 0.7, Total Protein 5.8L, Albumin 1.9L, Troponin I 0.41#H, Albumin/Globulin Ratio 0.49L 07/24/16 17:08: Blood Gas Bicarbonate Standard 17.2L, Arterial Blood pH 7.231*L, Arterial Blood Partial Pressure CO2 44.9, Arterial Blood Partial Pressure O2 67.7L, Arterial Blood Total CO2 19.8L, Arterial Blood HCO3 18.4L, Arterial Blood Base Excess - 8.8L, Arterial Blood Oxygen Saturation 88.0L 07/24/16 17:45: Bedside Glucose (Misc Panel) 205H 07/24/16 18:57: Anion Gap 13, Glomerular Filtration Rate 27.0L, Lactic Acid Level 3.1*H, Blood Urea Nitrogen 104H, Creatinine 1.95H, Sodium Level 131L, Potassium Level 3.7, Chloride Level 98, Carbon Dioxide Level 20L, Calcium Level 7.9L, Aspartate Amino Transf (AST/SGOT) 317H, Alanine Aminotransferase (ALT/SGPT) 54, Alkaline Phosphatase 82, Total Bilirubin 0.8, Total Protein 6.0L, Albumin 1.9L, Troponin I 0.56#H, Albumin/Globulin Ratio 0.46L 07/24/16 19:59: Bedside Glucose (Misc Panel) 152H 07/24/16 22:13: Blood Gas Bicarbonate Standard 19.4L, Arterial Blood pH 7.238*L, Arterial Blood Partial Pressure CO2 51.8H, Arterial Blood Partial Pressure O2 62.4L, Arterial Blood Total CO2 23.2, Arterial Blood HCO3 21.6L, Arterial Blood Base Excess - 5.9L, Arterial Blood Oxygen Saturation 84.7L, Arterial Blood Gas Puncture Site RT RADIAL 07/25/16 00:20: Blood Gas Bicarbonate Standard 19.0L, Arterial Blood pH 7.274L, Arterial Blood Partial Pressure CO2 44.4, Arterial Blood Partial Pressure O2 65.2L, Arterial Blood Total CO2 21.5L, Arterial Blood HCO3 20.1L, Arterial Blood Base Excess - 6.4L, Arterial Blood Oxygen Saturation 85.9L, Arterial Blood Gas Puncture Site RT RADIAL 07/25/16 00:35: Bedside Glucose (Misc Panel) 107 07/25/16 01:09: Lactic Acid Followup at 4 Hours 1.4, Troponin I 0.54H 07/25/16 05:38: Neutrophils 96H, Band Neutrophils 2, Lymphocytes (Manual) 1L, Monocytes (Manual ) 1, Toxic Granulation 3+, Toxic Vacuolation 1+, Platelet Estimate MARKED DECREASE, Anisocytosis 1+, Remigio Cells 2+, Anion Gap 11, Glomerular Filtration Rate 25.8L, Blood Urea Nitrogen 105H, Creatinine 2.03H, Sodium Level 132L, Potassium Level 3.5, Chloride Level 99, Carbon Dioxide Level 22, Calcium Level 7.0L, Phosphorus Level 5.6H, Aspartate Amino Transf (AST/SGOT) 325H, Alanine Aminotransferase (ALT/SGPT) 54, Lactate Dehydrogenase 401H, Total Creatine Kinase 160, Alkaline Phosphatase 82, Total Bilirubin 0.8, Triglycerides Level 197H, Cholesterol Level 53, Total Protein 4.7#L, Albumin 1.7L, Albumin/Globulin Ratio 0.57L 07/25/16 06:00: Blood Gas Bicarbonate Standard 19.8L, Arterial Blood pH 7.296L, Arterial Blood Partial Pressure CO2 43.2, Arterial Blood Partial Pressure O2 76.5, Arterial Blood Total CO2 21.9L, Arterial Blood HCO3 20.6L, Arterial Blood Base Excess - 5.6L, Arterial Blood Oxygen Saturation 92.6L CBC/BMP Laboratory Tests 07/24/16 12:27 Red Blood Count 3.52 L, Mean Corpuscular Volume 91.4, Mean Corpuscular Hemoglobin 29.0, Mean Corpuscular Hemoglobin Concent 31.7 L, Red Cell Distribution Width 14.8 H, Calcium Level 7.8 L, Aspartate Amino Transf (AST/SGOT ) 155 H, Alanine Aminotransferase (ALT/SGPT) 31, Alkaline Phosphatase 77, Total Bilirubin 0.7, Total Protein 5.8 L, Albumin 1.9 L 07/24/16 18:57 Calcium Level 7.9 L, Aspartate Amino Transf (AST/SGOT) 317 H, Alanine Aminotransferase (ALT/SGPT) 54, Alkaline Phosphatase 82, Total Bilirubin 0.8, Total Protein 6.0 L, Albumin 1.9 L 07/25/16 05:38 Red Blood Count 3.23 L, Mean Corpuscular Volume 89.5, Mean Corpuscular Hemoglobin 28.4, Mean Corpuscular Hemoglobin Concent 31.8 L, Red Cell Distribution Width 14.9 H, Calcium Level 7.0 L, Aspartate Amino Transf (AST/SGOT ) 325 H, Alanine Aminotransferase (ALT/SGPT) 54, Alkaline Phosphatase 82, Total Bilirubin 0.8, Total Protein 4.7 #L, Albumin 1.7 L, Phosphorus Level 5.6 H, Lactate Dehydrogenase 401 H, Total Creatine Kinase 160, Triglycerides Level 197 H, Cholesterol Level 53 Microbiology Microbiology 07/24/16 Blood Culture - Preliminary, Resulted 07/24/16 Blood Culture - Preliminary, Resulted 07/24/16 Gastrointestinal Tract Panel (PCR) - Final, Complete 07/24/16 Gram Stain - Final, Resulted 07/24/16 Sputum Culture, Resulted Pending 07/24/16 Gram Stain - Final, Resulted 07/24/16 Sputum Culture, Resulted Pending 07/24/16 Urine Culture, Received Pending NARCISO SALES MD Jul 25, 2016 10:08
[2016-07-25 10:41] LABS: INR 1.24
[2016-07-25] MEDS: NS 1,000 ML IV SCH (11:40)
[2016-07-25] MEDS: ACETAMINOPHEN 325 MG SUPP PR PRN (11:41)
[2016-07-25] MEDS: HumaLOG INSULIN (NovoLOG) PER UNIT SC SCH ×2 (11:41→18:08)
--- NOTE | 2016-07-25 14:21 | CR ---
DATE OF CONSULTATION: 07/24/2016 The patient is seen at the request of Dr. Toussaint of the emergency room, as well as Dr. Nice of the hospitalist service for increasing shortness of breath and a right lung opacity. The patient is a 70-year-old white female in whose care I was involved in December when she presented with a right empyema. At that time, she grew Escherichia (E) coli and Staphylococcus aureus and had one positive culture of mycobacterium avium complex. It was thought to emanate from the right lobe. She has an empyema associated with the bacterial infection. A pig tail catheter was placed and she underwent a TPA pleurolysis with eventual resolution of the empyema by both drainage and antibiotic therapy. At the time of my initial history, she was a poor historian, more by choice than not. Today, she is an even more poor historian, not out of hostility but out of true confusion and somnolence. According to the family, she was okay at the beginning of the weekend, however, they continued to call her and with no answer and finally went over to her house to find her weak and who had been in bed for evidently two or three days, unable to eat or drink. She complains of shortness of breath with a cough with sputum production. She states that she is brining up green/yellow sputum. This illness came on fairly suddenly. There has been a weight loss of approximately 30 pounds, according to the family over the past few months. She does not complaint of chest pain or chest discomfort. It does not sound as if she has any true dysphagia. PAST MEDICAL HISTORY: 1. Chronic obstructive pulmonary disease (COPD). 2. Tobacco abuse of up to three packs per day for 25 years. 3. Type 2 diabetes. 4. Hypertension. 5. Depression. 6. Status post multiple pneumonias. 7. Anemia. 8. Possible bladder tumor. PAST SURGICAL HISTORY: 1. Hysterectomy in the remote past. MEDICATIONS AT HOME: - [place] 5/325 every four hours as needed for pain - atenolol 100 mg daily - atorvastatin 20 mg at night - Breo Ellipta 100/25 one puff daily - Neurontin 600 mg twice a day - hydrochlorothiazide 12.5 mg daily - Lantus insulin 20 units subcutaneously daily - Lisinopril 10 mg by mouth twice a day - metformin 1000 mg by mouth twice a day - sertraline 100 mg by mouth twice a day ALLERGIES: SULFA, unknown reaction. FLUOXETINE, unknown reaction. RED DYE gives her rash. TRAMADOL, unknown reaction. CORTISONE, unknown reaction. POLYMYCIN, unknown reaction. HABITS: Has smoked up to three packs per day for at least 60 years. She continues to smoke. 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 TRAVEL HISTORY: Was born in [place]. FAMILY HISTORY: Son of colon cancer. Two sisters with dementia, diabetes, and heart disease. Parents from unknown cause. EXPOSURES: She has dogs and cats at home but no birds. There is no exposure to asbestos. REVIEW OF SYSTEMS: Not obtainable secondary to her confused state. PHYSICAL EXAMINATION: A cachectic, white female in obvious acute distress, somnolent and confused. VITAL SIGNS: Temperature was 98.3 in the emergency room with a pulse of 88 in a sinus rhythm respiratory rate of 30 with use of neck accessory muscles. She is 93% saturated on 4 liters nasal cannula. Her blood pressure is 192/81. HEAD: Normocephalic. Eyes show her pupils to be equal and reactive. Extraocular motors intact. Sclerae nonicteric. Nose without deformity. Mouth shows her mucous membranes to be pink but dry. NECK: Supple. There is no jugular venous distention (JVD). No subcutaneous emphysema. There is tenting of the skin of her neck. There is no lymphadenopathy or thyromegaly. LUNG EXAM: Shows a percussion note that is dull at the right upper hemithorax. She has mild E to A egophony in the right upper hemithorax. She has decreased breath sounds throughout the remainder of her lungs with scattered rhonchi throughout. I cannot get her to cooperate to cough. CARDIAC EXAM: Without murmurs, clicks, gallops or rubs. I cannot feel her point of maximum impulse (PMI). S1, S2 are normal. ABDOMEN: Soft, nontender. Bowel sounds are hypoactive but present. There is no hepatomegaly. No costovertebral angle tenderness. EXTREMITIES: Show no pretibial edema. No calf tenderness. No differential swelling of the upper extremities. SKIN: Cool with mottling of the knees, dry. NEUROLOGIC: Shows gross motor and gross sensation intact. Gait, of course, is not tested. PSYCHIATRIC: Shows her to be somnolent and confused. INVESTIGATIONS: Her white count is 16.2 with a hemoglobin and hematocrit of 11.4 and 35.2 and a platelet count of 107. She has 67% neutrophils, 24% band forms, 4% lymphocytes, and 3% monocytes. There are no toxic granulations or vacuolizations reported. Blood gases show a pH of 7.27, PCO2 of 32, PO2 of 69 with a base excess of -10.9. Her electrolytes show a sodium of 126, potassium 3.5, and a total CO2 of 16. BUN and creatinine of 107 and 2.07, respectively with a glucose of 386. Calcium is 8.4 with a corresponding albumin of 2.2. AST and ALT are 125 and 32, respectively. PT/INR are 14.1 and 1.08, respectively with a PTT of 30.7 seconds. Urinalysis shows 1+ protein and 1+ glucose. She is negative for leukocyte esterase. Her portable chest x-ray from the emergency room shows complete opacity of the right upper hemithorax with a very smooth inferior border consistent with the fissure. There is no mediastinal shift. Costophrenic angles are sharp. The entire right hemithorax is complete obliterated and opacified. Chest CT done without contrast secondary to her renal function shows a heterogeneous mass with the absence of air bronchograms peripherally, occupying the entire right upper lobe. I do not think that there is any fluid but rather a consolidation and/or mass. It is hard to tell if there is mediastinal lymphadenopathy, but I think that there is some paratracheally anteriorly. She also looks to have some subcarinal lymphadenopathy. Lung windows show diffuse emphysematous changes, but I would grade them as only mild to moderate. The major fissure completely borders the heterogenous mass, best seen on the sagittal reconstruction. There is some aeration of the apical segment of the right upper lobe and a bronchus can be seen leading to it. The remainder of the upper lobe bronchi are completely occluded. IMPRESSION: 1. Metabolic acidosis, probable underlying sepsis. 2. Probable postobstructive pneumonia. 3. Renal failure. 4. Dehydration giving rise to the renal insufficiency. 5. 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 6. Chronic obstructive pulmonary disease (COPD). 7. Hypertension. 8. Anxiety. 9. Depression. PLAN AND DISCUSSION: Her most pressing problem at this point in time is her metabolic acidosis and dehydration. She will be aggressively rehydrated. I have already spoken to Dr. Nice of the hospitalist service. After stabilizing her, we will need to make a diagnosis. This can be done either by needle biopsy, which would be actually very simple or a bronchoscopy. Bronchoscopy would require sedation, whereas needle biopsy would not. This could potentially be a solitary fibrous tumor, although they are extraordinarily rare, but that follows the fissure so closely it could point to that diagnosis. Nonetheless, the only way to get that is will be with a needle biopsy. Given her smoking history, I think this is probably malignant. My suspicion is that is going to be a small cell carcinoma rapidly growing. She does not have jugular venous distention (JVD) and she does not have a swollen face, so I do not think that she has superior vena caval syndrome at this point in time. 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 It would not surprise me that if this is small cell carcinoma that she could potentially develop SVC syndrome and we will have to carefully observe her. Hopefully with rehydration, we can reverse her kidney dysfunction and undertake a CT with contrast.
[2016-07-25 16:43] LABS: CALCIUM LEVEL 7.4 MG/DL (8.8-10.2); CREATININE FOR GFR 2.02 MG/DL (0.55-1.02); GLOMERULAR FILTRATION RATE 25.9 (>39); POTASSIUM SERUM 3.6 MEQ/L (3.5-5.1)
[2016-07-25] MEDS ORDERED: SLF 3 ML SYR IV PRN (18:30)
[2016-07-25] MEDS ORDERED: SODIUM CHLORIDE 0.9% INJ 10 ML SYR IV PRN (18:30)
--- NOTE | 2016-07-25 18:47 | CR ---
DATE OF CONSULTATION: 07/25/2016 REQUESTING PHYSICIAN: Finn Nice MD CONSULTING PHYSICIAN: Stephanie Fong MD REASON FOR CONSULTATION: Management of acute oliguric renal failure and possible uremia. CHIEF COMPLAINT: Patient was admitted yesterday because of cough and confusion. HISTORY OF PRESENT ILLNESS: Note, history was obtained from the medical team and from patient's chart. Patient is unable to provide any reliable history at this time. Lula Ponce is a 70-year-old female who apparently has history of heavy smoking for the last 60 years almost. She was admitted to [facility] previously with empyema of the right lung and then re-admitted in December 2015 with right middle lobe pneumonia. At that time, her renal function was stable. Her creatinine was 0.8. Patient was brought in by family again yesterday because of worsening cough, shortness of breath, weakness, fever with chills, inability to communicate. Patient was found to have severe anemia with large right upper and middle lobe consolidation. Patient was also found to have acute renal failure with a creatinine of 2 and BUN of 107. Because of the severe sepsis and bandemia, patient was aggressively hydrated, was given intravenous (IV) antibiotics. Her lactate improved to 1.4. However, she continues to be oliguric. Her creatinine is still 2, BUN is 103. Nephrology service was called for further help in the management of this patient with acute oliguric renal failure in the setting of severe sepsis and right-sided pneumonia and possibility of uremia. PAST MEDICAL HISTORY: Past medical history of: 1. Chronic obstructive pulmonary disease (COPD), not on oxygen at home. 2. Hypertension. 3. History of right-sided empyema requiring pigtail catheter placement and right middle lobe pneumonia last year. 4. Depression. 5. Hyperlipidemia. 6. Neuropathy. 7. History of low-grade urothelial carcinoma of the bladder. PAST SURGICAL HISTORY: 1. Status post hysterectomy. 2. Status post transurethral bladder tumor resection. 3. Status post right chest pigtail catheter placement last year. ALLERGIES: Patient has multiple allergies, including RED DYE, SULFA DRUGS, BACITRACIN, CORTISONE, FLUOXETINE, NEOMYCIN, POLYMYXIN, TRAMADOL, and OXYCODONE. FAMILY HISTORY: Unable to obtain any family history from the patient at this time. SOCIAL HISTORY: As per chart, patient is a heavy smoker. She has 180 pack-year history of smoking. She occasionally drinks alcohol. There is no history of illicit drug abuse. She lives alone, but she is able to perform activities of daily life. REVIEW OF SYSTEMS: I was unable to do any reliable review of systems in this patient, who has bilateral positive airway pressure (BiPAP) at this time and barely follows few commands. HOME MEDICATIONS ON ADMISSION YESTERDAY: Patient takes: - Breo Ellipta - sertraline - metformin - lisinopril - Lantus - hydrochlorothiazide - Neurontin - atorvastatin - atenolol - hydrocodone PHYSICAL EXAM: GENERAL: Patient is obtunded, wearing BiPAP, in moderate respiratory distress. Follows few commands. VITAL SIGNS: Temperature is 97.1 degrees Fahrenheit, blood pressure is 139/60, pulse is 90, respiratory rate of 20, saturating 94% on BiPAP at 40% FiO2. INTAKE AND OUTPUT: Urine output recorded overnight is 242 mL. Weight on the bed scale is 55.1 kg. HEAD AND NECK EXAM: Pupils equally round and reactive to light. Patient is wearing a BiPAP mask. Mucous membranes are dry. Neck is supple. There is no jugular venous distention (JVD). CARDIOVASCULAR: S1, S2, regular rate. No murmur, rub, and gallop. RESPIRATORY: Decreased breath sounds at the right upper and right middle lobe. Positive crepitations on deep inspiration on the right side. Left side of the chest is clear, just transmitted breath sounds from the BiPAP. ABDOMEN: Is soft. Positive bowel sounds. Nontender. No ascites. No organomegaly. GENITOURINARY: Patient has a Rand catheter. Very dark-colored urine is present in the bag, about 50-60 mL. EXTREMITIES: No clubbing or cyanosis. Pulses are 2+. CENTRAL NERVOUS SYSTEM (HYDRAMATIC MECHANIC): Patient is obtunded. Follows few commands but moves extremities. INTRAVENOUS (IV) ACCESS: Patient has a right-sided triple-lumen catheter. SKIN: No rashes or ulcers. LYMPH NODE: No significant cervical, axillary, or inguinal lymphadenopathy. LAB REVIEW: CBC on admission showed a white cell count of 16.2. However, WBC has improved to 7.9. Hemoglobin is 9.2, platelets are 50. INR is 1.2. Urinalysis showed it was cloudy with 1+ protein, negative nitrite, negative leukocyte esterase. Arterial blood gas (ABG) done today morning showed a pH of 7.29, pCO2 of 43, pO2 of 76, bicarbonate of 20, oxygen saturation is 92.6%. BMP this morning showed sodium 132, potassium 3.5, chloride 99, bicarbonate 22, BUN 105, creatinine is 2, calcium is 7, phosphorus 5.6, LDH is 401, albumin 1.7. Immunology: ANCA serology is pending. Microbiology: Blood cultures are growing gram-positive cocci in pairs and chains. Gastrointestinal (GI) panel is negative. Sputum Gram stain showed many gram-positive cocci in pairs, chains, and clusters. Sputum culture is pending. IMAGING: CT chest was done yesterday without IV contrast, which showed diffuse consolidative opacity throughout the right upper lobe. Underlying empyema cannot be excluded without IV contrast. There were multiple enlarged mediastinal lymph nodes. Renal ultrasound done yesterday showed unremarkable exam of the kidneys. Urinary bladder was catheterized and contracted, and there was splenomegaly. CURRENT INPATIENT MEDICATIONS: Patient's medications were all reviewed by me. I have started the patient on normal saline at 75 mL an hour. She is currently on: - Zosyn 2.25 grams IV every 8 hours - vancomycin 1 gram IV every 12 hours - DuoNeb nebulizations - gabapentin 600 mg by mouth twice a day (which I am stopping right now) - insulin sliding scale - milk of magnesia 30 mL by mouth daily - Zofran as needed - Protonix 40 mg IV daily - Zoloft 100 mg by mouth twice a day ASSESSMENT: 70-year-old female with 180 pack-year history of smoking, history of pneumonia and empyema in the past along with chronic obstructive pulmonary disease, admitted this time to intensive care unit (ICU) because of severe sepsis secondary to right upper lobe pneumonia with possible empyema along with acute oliguric renal failure. PLAN: 1. Sepsis secondary to right upper lobe pneumonia and possible empyema. Patient has already been started on empiric vancomycin and Zosyn. Continue the empiric coverage at this time. Continue the BiPAP as per primary team. Patient will likely need a bronchoscopy, as well, to rule out malignancy and postobstructive pneumonia. 2. Acute hypoxic and hypercapnic respiratory failure. It is secondary to severe pneumonia. Patient is currently on BiPAP. Repeat ABG done today morning shows slight improvement. If needed, patient can be intubated. Rest of the management is as per pulmonary critical care service. 3. Acute oliguric renal failure secondary to severe sepsis, hypotension, along with use of diuretics, lisinopril, and metformin at home before presenting to the emergency room. I recommend continuing the IV fluid hydration. High [id number] ratio is most likely secondary to volume depletion and dehydration. There is no urgent need to start hemodialysis at this time. Patient is currently hemodynamically stable, and I see that she has started making around 15-20 mL of urine an hour. I am optimistic that with further management of sepsis and IV fluid hydration, her renal function will start improving. However, I would continue to monitor the patient for any need to start renal replacement therapy, and I would have a low threshold to start hemodialysis in this patient with severe sepsis. 4. Diabetes mellitus type 2. I would hold the metformin in this patient with acute renal failure. Insulin sliding scale is as per primary team. 5. Diabetic neuropathy. I am going to hold the Neurontin in this patient, who is very obtunded at this time. 6. History of hypertension. Patient has severe sepsis at this time. Continue to hold lisinopril, hydrochlorothiazide, and atenolol. 7. Hyponatremia. It is most likely secondary to hypovolemia. Continue the IV fluid hydration at this time. 8. Metabolic encephalopathy. It is multifactorial at this time. High BUN level is not the only etiology at this time. Patient has severe sepsis with severe pneumonia, hypoxic and hypercapnic respiratory failure, and the use of opioids, as well. Continue the management of sepsis at this time. Avoid HYDRAMATIC MECHANIC depressants and opioid pain medication at this time. There is no urgent need of hemodialysis at this time. 9. Gram-positive cocci bacteremia. The most likely source is pneumonia at this time. Patient is already empirically being covered with vancomycin and Zosyn. Dose is already adjusted for patient's renal failure. Thank you for involving us in the care of this patient. We shall be happy to follow the patient along with you tomorrow morning. I spent more than 45 minutes in coordinating the care of this patient in the intensive care unit (ICU). Edited: joyce 07/25/2016 [id number]
--- NOTE | 2016-07-25 22:54 | CR ---
DATE OF CONSULTATION: 07/25/2016 NOTE: Asked by Dr. Nice to evaluate Ms. Ponce for an abnormal chest CT scan. HISTORY OF PRESENT ILLNESS: Ms. Ponce is a 70-year-old patient who was brought to the emergency department by her son and [id number] who went to check on her and found her to be confused and unable to get up. She is not answering questions for me, though is arousable and responsive. Per the admission history and physical (H and P), Dr. Nice was told that she "feels terrible," is having difficulty breathing, and coughing more than usual. She did not recall what may have happened over the few days preceding admission. Upon presentation to the emergency department, she was found to have a right upper lobe consolidated process, as well as acute renal failure. Ms. Ponce's past pulmonary history is most notable for being diagnosed with a right upper lobe pneumonia in September of 2015. There was also a question of a smaller right lower lobe infiltrate at the same time. She was treated with antibiotics. However, later in October she developed right-sided chest discomfort which persisted. The discomfort had a pleuritic component. She was seen in consultation by Dr. Erickson on 12/12/2015, and her evaluation at that time had shown a right lower lobe tiny effusion with a small amount of infiltrate above it. There was markedly decreased size of the right middle lobe infiltrate. She had a thoracentesis attempted by Dr. Erickson with that study yielding approximately 2 mm of thick pustular material. She was then admitted for presumed empyema. A pigtail catheter was placed. The pleural fluid did not show any organisms and the cytology sent showed just a blood clot. The pigtail catheter was removed after a couple of days and she was treated with initially IV antibiotics and then converted to oral antibiotics and discharged to home. It should be noted that her sputum cultures from the October admission had shown heavy growth of methicillin-resistant Staphylococcus aureus (MRSA) with a few Escherichia (E) coli. She also had a sputum culture that admission which had shown Mycobacterium avium complex, though I do not know the amount of organisms seen. She was next seen in followup by Dr. Erickson on 04/08/2016, after having continued chest discomfort in that region. That evaluation did not show any evidence of an acute pulmonary process and she had complete resolution of her previous basilar infiltrate and effusion. She had no evidence of a chronic obstructive pulmonary disease (COPD) exacerbation and it was felt that her pain was likely secondary to spinal stenosis related to her back pain. ALLERGIES: SULFA ANTIBIOTICS, BACITRACIN, FLUOXETINE, RED DYE, TRAMADOL, CORTISONE, POLYMYXIN B, and PERCOGESIC. MEDICATIONS ON ADMISSION: - Breo 100-25 one puff daily - sertraline 100 mg by mouth twice a day - metformin 1 gram by mouth twice a day - lisinopril 10 mg by mouth twice a day - Lantus 20 units subcutaneous daily - hydrochlorothiazide 12 mg by mouth daily - Neurontin 600 mg by mouth twice a day - atorvastatin 20 mg by mouth nightly - atenolol 100 mg by mouth daily - hydrocodone/acetaminophen 5/325 every 4 hours as needed PAST MEDICAL HISTORY: 1. Status post right middle lobe/possible small right lower lobe pneumonia September 2015. 2. Status post right lower lobe infiltrate/atelectasis associated with empyema December 2015. 3. Diabetes mellitus. 4. COPD, Gold stage II. a. Spirometry from 11/09/2015, showed an FEV1 of 1.34 liters (65%), FEC of 2.23 liters (81%). FEV1/FVC shows reduced at 60%. Normal inspiratory flow volume. 5. Hypertension. 6. Depression. 7. Status post hysterectomy. 8. Dyslipidemia. 9. Bladder cancer. a. Status post transurethral bladder tumor resection. 10. Tobacco usage, ongoing. SOCIAL HISTORY: Ms. Ponce lives alone. She has smoked 2-3 packs per day for over 60 years and is an active smoker. This gives her a 120-180 pack year history. She has perhaps two alcoholic beverages per month. She has tried marijuana in the past, but not currently using it. Per Dr. Erickson' report from December 2015, she has dogs and cats, and she has never had birds in the home. No known exposure to pulmonary toxins such as dust, fumes, gas, asbestos. No significant chemical exposure. 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 FAMILY HISTORY: A son from colon cancer. She has sisters with dementia, diabetes mellitus, heart disease. Her parents from unknown causes. REVIEW OF SYSTEMS: Per history of present illness (HPI). I could not obtain any further information from the patient this morning. PHYSICAL EXAMINATION: GENERAL: Ms. Ponce is lying in bed with a noninvasive mechanical ventilator mask in place. She was easily arousable to voice, but became fairly agitated after awakening. VITAL SIGNS: Temperature 98.6, which is her maximum temperature (T-max), respiratory rate 20, pulse 93, blood pressure 138/61 with a mean arterial pressure (MAP) of 86. SpO2 95% on noninvasive mechanical ventilator with an FiO2 of 0.4. HEENT: Anicteric, nares and oropharynx not examined secondary to full face mask. NECK: Supple, right internal jugular (IJ) in place, no apparent jugular venous distention (JVD). LYMPHATICS: Without cervical or supraclavicular lymphadenopathy. CHEST: Normal shape. LUNGS: Symmetric excursion. Generalized diminished air entry, absent breath sounds over the right upper region posteriorly, a few rhonchorous sounds heard on the right anteriorly. No significant crackles or wheezes. Normal I:E. No accessory muscle usage or retractions. CARDIOVASCULAR: Regular rate and rhythm with a normal S1, S2, no murmur, rub, or gallop appreciated. ABDOMEN: Normoactive bowel sounds, soft, nondistended. Mild generalized tenderness, no rebound or guarding, no hepatosplenomegaly or masses appreciated. EXTREMITIES: Warm and well perfused, palpable pedal pulses, without clubbing, cyanosis, or significant edema. LABORATORY DATA: CBC from this morning showed a hemoglobin of 9.2, hematocrit 28.9, platelet count 50,000, and white blood cell count 7,000, with a differential of 96% neutrophils, 2% bands, and 1% lymphocytes. Her admitting CBC had shown a WBC of 16.2, with a differential of 69% neutrophils, 24% bands, and 4% lymphocytes. Her platelet count at that time was 107,000. Chemistry showed sodium 132, potassium 3.5, chloride 99, bicarbonate 22, anion gap 11, BUN 105, creatinine 2.03, glucose 112, calcium 7.0, phosphorous 5.6, total bilirubin 0.8, AST 325, ALT 54, alkaline phosphatase 82, lactic acid 401, CK 160, total protein 4.7, albumin 1.7. Her lactic acid on presentation was 3.9 with her lactic acid at 1 a.m. 1.4. Troponin I maximum was 0.56 on 07/24/2016, at 1857 hours. Other labs on admission include a BNP of 1240, a TSH of 4.82, lipase of 54, and a CRP of 32.8. On admission her PT was 14.1, her INR 1.08, and her PTT 30.7. Initial arterial blood gas was 7.28/33/69 with a measured saturation of 89% and a base excess of -10.9. I do not know what level of oxygen this was drawn on. At 2200 hours, her arterial blood gas was 7.24/52/62 with a measured saturation of 85% and a base excess of -5.9. It was at that time that she was started on noninvasive for this mixed acidemia. This morning her blood gas is 7.30/43/77 with a measured saturation of 93% and a base excess of -5.6. This was a drawn on an FiO2 of 0.4. I reviewed her chest xray as well as the report from 07/24/2016. That xray showed normal appearing cardiac silhouette and pulmonary vascular shadow. The left lung was clear as was the bottom portion of the right lung. There is a complete opacification of the right upper lobe. I reviewed her chest xray from earlier this morning which is unchanged. I reviewed multiple chest CT scans starting with 10/05/2015, which showed a right middle lobe infiltrate and a smaller possible right lower lobe infiltrate. She had an enlarged spleen that, per my measurement, was around 110 mm. She also had an azygos lymph node. I reviewed her chest CT scan from 12/20/2015. This time she had a tiny right lower lobe effusion with a small amount of infiltrate on top of the effusion. The right middle lobe infiltrate had markedly improved. Previously, a possible mild right lower lobe infiltrate resolved. The spleen at this time measured 120.75 mm. There was no change in the enlarged azygos lymph node which was measured at 14.06 mm. There was a right hilar lymph node at 13.01 mm, although this is the only CT scan done with contrast dye. I reviewed her chest CT scan from yesterday. That CT scan showed normal appearing cardiac silhouette and pulmonary vascular shadows. There were multiple enlarged mediastinal lymph nodes. The right hilar region was obscured so no comment could be made in that region. She had a large right consolidated mass with just a small region of the apical right upper lobe aerated. The remainder of the lungs were clear. She also had an enlarged spleen, but per my measurement it was smaller than in December. IMPRESSION: 1. Large right upper lobe mass. The differential would include fast growing tumor, no evidence of this finding was present on chest CT scan from December 2005. If it were a tumor it would be most consistent with a fibrous tumor, sarcoma, or other, rather than primary lung tumor. Differential would also include consolidated pneumonic process. I do not believe that that is fluid in the right upper lobe. 2. History of recurrent abnormalities on the right side with a right middle lobe/possible right lower lobe pneumonia September 2015 and right lower lobe empyema with possible right lower lobe infiltrate/atelectasis December 2015. 3. Acute renal failure. 4. Thrombocytopenia. 5. Acidemia, mixed, with predominance of metabolic component. 6. Chronic obstructive pulmonary disease (COPD), moderate, Gold class II. 7. Diabetes mellitus. 8. History of bladder cancer, status post resection. 9. Tobacco usage, ongoing. 10. Mental status changes. She is confused and agitated for which the differential may simply be electrolyte abnormalities. If this is a tumor, metastatic process would have to be considered in the differential. It should also be noted, during her last admission, she was described as hostile when interacting with the health staff, which may also represent a mental status change or could be baseline. During that admission she made it clear that she did not want any surgical procedures at any time so this will need to be reexplored should she require invasive procedures this admission. RECOMMENDATIONS: 1. Agree with antibiotics to cover for possible infection, though I am concerned that this mass is of another etiology. 2. It is reasonable to use noninvasive mechanical ventilation given her mixed process and increased pCO2 last evening. 3. The easiest biopsy for her would be transthoracic needle biopsy. Her platelet count is over 50,000 so it should be safe, though consideration could be given to running platelets when the procedure was undertaken. 4. Will add prothrombin time (PT) and partial thromboplastin time (PTT) to this morning's labs to make certain that we are not seeing evidence of disseminated intravascular coagulation (DIC). 5. Given her confusion and possibility this is a tumor, recommend consideration of a brain imaging study when she can tolerate that. Unfortunately, she cannot have contrast given her renal function at this time and I do not feel that she would be able to lie still for an MRI. Thank you for this consult. We will continue to follow with you.
[2016-07-25] MEDS: SODIUM CHLORIDE 0.9% INJ 10 ML SYR IV SCH (22:57)
[2016-07-25] MEDS: SLF 3 ML SYR IV SCH (22:57)
[2016-07-26] VITALS (26 sets, daily range): BP systolic 108–185; BP diastolic 55–98; O2SAT 94
--- NOTE | 2016-07-26 00:23 | IPN ---
DATE: 07/25/2016 Ms. Ponce is presently on bilevel positive airway pressure (BiPAP). She is squirming around and still quite confused. She has asked for oral intake with the mask off. Her vital signs show a maximum temperature (T max) of 98.8 with a heart rate that ranges between 90 to 86. Respiratory rate is 20 to 24 on BiPAP with an FiO2 of 40% and on that she is 91 to 96% saturated. Blood pressure is ranging between 106/53 to 148/64. Intake and output over the past 24 hours has been recorded as 3415 in and 135 out for a positivity of 3280 mL. She has only put 135 mL in urine output. She weighs 55.1 kg today compared to 52.5 kg yesterday. PHYSICAL EXAMINATION: I hear scattered rhonchi and rales throughout. I cannot get to sit her up. Cardiac exam is without murmurs, clicks, gallops or rubs. I cannot feel her point of maximum impulse (PMI). S1, S2 are normal. Abdomen is soft but she is tender in the epigastrium. It is only mild tenderness where she winces. Bowel sounds are hypoactive but present. There is no hepatomegaly. I cannot tell if there is costovertebral angle tenderness. Extremities show no pretibial edema. No calf tenderness. No differential swelling of the upper extremities. Skin is warm, dry and perfused. There is no mottling of her knees today. Mouth shows her mucous membranes to be pink and moist. There is no thrush. Neck is supple. There is no jugular venous distention, no subcutaneous emphysema. Eyes show her pupils to be equal and reactive. Extraocular motions intact. Sclerae anicteric. Neurologic shows her to be moving all four extremities. Psychiatric shows her to be confused. Her sodium is 132 with a potassium of 3.5. BUN and creatinine are still elevated at 105 and 2.03 respectively. Glucose is 112 and her calcium is 7.0 with a corresponding albumin of 1.7. AST and ALT are 325 and 54 respectively. Lipase is 53. Her blood gas today shows a pH of 7.29 with a pCO2 of 43 and a pO2 of 76. Her base excess is -5.6, improved from 10.9 on admission yesterday. Her white count is 7.9 with a hemoglobin and hematocrit of 9.2 and 28.9. She has toxic granulations and vacuolations. Differential shows 96% neutrophils, 2% bands, 1% lymphocytes. Her chest x-ray still shows the right upper hemithorax completely opacified with a sharp demarcation at the fissure. Costophrenic angles are sharp. I do not see any particular increased vascularity in the lungs. Trachea is in the midline. IMPRESSION: 1. Metabolic acidosis, improving, secondary to underlying sepsis and to renal insufficiency. 2. Possible postobstructive pneumonia. 3. Renal failure. 4. Dehydration giving rise to the renal failure above. 5. Probable large mass, most likely malignant in the right upper lobe. 6. Chronic obstructive pulmonary disease (COPD). 7. Hypertension. 8. Anxiety. 9. Depression. PLAN AND DISCUSSION: She is still being supported on BiPAP. . I do not see any clinical evidence of superior vena cava (SVC) syndrome. Her renal function will not allow us to undertake a CT with contrast. As soon as she is in a more stable condition, we should take her down for a needle biopsy of her right upper lobe mass. 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 [facility]
[2016-07-26] MEDS: IPRATROPIUM 0.5MG/ALBUTEROL 2.5MG INH SOL UD 3ML (DUONEB)(J7620) NEB SCH ×4 (01:13→19:46)
[2016-07-26] MEDS: NS 1,000 ML IV SCH (04:03)
[2016-07-26] MEDS: SLF 3 ML SYR IV SCH ×3 (05:24→21:06)
[2016-07-26] MEDS: SODIUM CHLORIDE 0.9% INJ 10 ML SYR IV SCH ×3 (05:24→21:06)
[2016-07-26] MEDS: ACETAMINOPHEN 325 MG SUPP PR PRN (05:24)
[2016-07-26 07:12] LABS: DIFF SLIDE NUMBER 49; MEAN CORPUSCULAR HEMOGLOBIN 29.1 pg (27.0-33.0); MEAN CORPUSCULAR HGB CONC 32.1 g/dl (32.0-36.5); MEAN CORPUSCULAR VOLUME 90.8 fl (80.0-96.0); RED CELL DISTRIBUTION WIDTH 14.8 % (11.5-14.5); WHITE BLOOD COUNT 9.8 K/mm3 (4.0-10.0)
[2016-07-26 07:17] LABS: ALBUMIN 1.7 GM/DL (3.2-5.2); ALBUMIN/GLOBULIN RATIO 0.53 (1.00-1.93); BILIRUBIN,TOTAL 0.8 MG/DL (0.2-1.0); CALCIUM LEVEL 7.5 MG/DL (8.8-10.2); CREATININE FOR GFR 1.6 MG/DL (0.55-1.02); GLOMERULAR FILTRATION RATE 33.9 (>39); PHOSPHORUS LEVEL 5.1 MG/DL (2.5-4.9); POTASSIUM SERUM 3.3 MEQ/L (3.5-5.1); TOTAL PROTEIN 4.9 GM/DL (6.4-8.2)
[2016-07-26] MEDS: PIPERACILLIN/TAZOBACTAM SOD 2.25 GM in D5W MINI-BAG PLUS 50 ML IV SCH (07:20)
[2016-07-26 07:28] LABS: PLATELET COUNT, AUTOMATED 39 k/mm3 (150-450)
[2016-07-26] MEDS: HumaLOG INSULIN (NovoLOG) PER UNIT SC SCH ×5 (07:31→23:36)
[2016-07-26] MEDS ORDERED: LIDOCAINE 1% MDV 20ML VIAL As Ordered ONE ×2 (07:57→13:43)
[2016-07-26] MEDS ORDERED: KCL 20MEQ IN 100ML SWI (KRUN) 20 MEQ in APPROPRIATE DILUENT 1 EA IV ONE ×2 (08:00)
[2016-07-26] MEDS ORDERED: VANCOMYCIN HCL 750 MG, VIAL MATE ADAPTER 1 EACH in D5W 250 ML IV SCH (08:00)
[2016-07-26] MEDS: SERTRALINE 100 MG TAB PO SCH ×2 (08:41→21:05)
[2016-07-26] MEDS: DOCUSATE SODIUM 100 MG CAP PO SCH ×2 (08:41→21:05)
[2016-07-26] MEDS: PANTOPRAZOLE 40MG INJ (PROTONIX) (C9113) IV SCH (08:41)
[2016-07-26] MEDS: MOM 30ML SUSPENSION UDC PO SCH (08:41)
--- NOTE | 2016-07-26 09:13 | REP ---
PORTABLE CHEST: AP portable view of the chest is performed. Right upper lobe consolidation is again noted, unchanged. There is bibasilar atelectatic change in each lung base. The heart is normal in size. Right central venous catheter is unchanged. IMPRESSION: Essentially stable exam. Signed by Boy Barrios MD 07/26/2016 05:17 P
[2016-07-26 09:33] LABS: MAGNESIUM LEVEL 1.8 MG/DL (1.8-2.4)
[2016-07-26 09:38] LABS: BURR CELLS 1+
--- NOTE | 2016-07-26 09:46 | CCN ---
DATE OF VISIT: 07/26/2016 TIME OF VISIT: 0850 hours I attended Lula Ponce here in the intensive care unit. She has been off bilevel support since around 4 o'clock this morning. She is oxygenating reasonably well on 5 liters nasal cannula. Maximum temperature (Tmax) overnight 98.5, blood pressure 120-150 systolic, heart rate generally in the 80s, respiratory rate 16 to the mid 20s, current saturation 90% to 94% on 5 liters nasal cannula flow. INTAKE AND OUTPUT (I AND O) from midnight to midnight ending at 2400 on 07/25/2016, 1277.5 mL in with 532 mL out. Most recent laboratory studies: Sodium 134, potassium 3.3, chloride 101, CO2 of 17, BUN of 102, creatinine down to 1.6, CPK of 355, albumin 1.7. White blood cell count 9.8, hemoglobin 8.9, platelet count down to 39,000. Today, no differential available. No new blood gas. Coagulations yesterday had a PT of 15.7. Chest x-ray and CTs are reviewed. Chest x-ray today shows no real change in her right upper lobe density. On examination, she is ill-appearing, awake, alert, and answers questions appropriately. Membranes are reasonably moist. Pupils react. Sclerae clear. Trachea is in the midline. No convincing jugular venous distention (JVD) or adenopathy. Chest shows dullness to percussion of the right upper chest anteriorly. There is some egophony in that area. There are coarse rhonchi throughout the inspiratory and expiratory cycle, much more marked on the right. chest has reasonable air entry, and there is some transmitted large airway noise from the right. No obvious rub. She is uncomfortable with palpation on the right. Heart examination is regular. Peripheral pulses palpable. No convincing edema. Abdomen is soft and nontender with active bowel sounds. No convincing organomegaly or masses. Extremities: Show no cyanosis or clubbing. Neurologically, she is awake, alert, and appropriate. Psychiatric: Normal mood and affect. Medication list has been reviewed. Ulcer and deep venous thrombosis (DVT) prophylaxis in place. IMPRESSION: 1. Hypoxemic respiratory failure, multifactorial. 2. 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 3. Abnormal CT scan with right upper lobe mass versus infiltrate. 4. Thrombocytopenia. 5. Metabolic acidosis. RECOMMENDATIONS: At this point, she is able to be off noninvasive, and this will help her with clearance of secretions. We will try to augment this with the use of expectorants and some EzPAP for her respiratory treatments. I reviewed the chart at length. I would agree at this point that the safest approach would be a CT-guided needle biopsy. Certainly, if we are able to get platelets, they can be infused at the time of her procedure. Bronchoscopy, in view of her precipitous respiratory status and for her thrombocytopenia, would be much higher risk. I would continue her current antimicrobials. No other new culture data is available. Her sputum did grow Escherichia (E.) coli, and she clearly has Streptococcus pneumoniae in her blood. It is conceivable that this is all related to a Streptococcal pneumoniae. Certainly, her diffuse dysfunction would not be unusual in that setting. We will proceed as outlined above. Further recommendations will be made in the progress record as new information becomes available. In view of her dysfunction, prognosis is guarded at best.
[2016-07-26] MEDS ORDERED: MAG SULF 1GM/100ML (MAG RUN) 1 GM in APPROPRIATE DILUENT 1 EA IV ONE (10:15)
--- NOTE | 2016-07-26 10:15 | IPNPDOC ---
Date Seen The patient was seen on 07/26/16. Progress Note SUBJECTIVE: Patient is resting comfortably in bed on nasal cannula she is awake she is oriented to place and situationin hospital she cannot tell me the city the name of the hospital the year or the state. She complains she is thirsty but otherwise no other complaints OBJECTIVE PHYSICAL EXAMINATION: VITAL SIGNS: Please see below. GENERAL: Frail elderly female laying in bed peacefully she does not appear to be in acute distress she does cough copious amounts of yellow sputum during the exam HEENT: Moist mucous membranes cranial nerves II through XII appear to be intact CARDIOVASCULAR: S1-S2 regular no additional heart sounds appreciated. RESPIRATORY: Scattered rales throughout both bilateral lower lobes diminished breath sounds in the right upper lobe. Transmitted upper airway sounds ABDOMINAL: Sounds present abdomen soft nontender EXTREMITIES: No clubbing cyanosis or edema NEUROLOGICAL: Spontaneously Moves all 4 extremities LABORATORY DATA: Please see below. MICROBIOLOGY: Please see below. IMAGING: CT chest:Diffuse consolidative opacity throughout the right upper lobe. Underlying empyema cannot be excluded without IV contrast. Multiple enlarged mediastinal lymph nodes are present. Chest x-ray from 07/24/2016:AP portable view of the chest is performed. The lungs are unchanged in appearance. Dense consolidated opacity in the right upper lobe is unchanged. T he cardiomediastinal silhouette is unchanged. A right central venous catheter is seen with the tip in the superior vena cava Liver ultrasound:Multiple adherent gallbladder calculi versus gallbladder polyps versus combination. Right renal cyst. Otherwise, negative abdominal right upper quadrant ultrasound. Renal ultrasound:1. Unremarkable ultrasound examination of the kidneys. 2. Urinary bladder is catheterized and contracted. 3. Splenomegaly. DVT prophylaxis ordered?: Sequentials and teds no pharmacological agents secondary to thrombocytopenia ASSESSMENT AND PLAN: This is a 70-year-old female with respiratory failure and renal failure. Respiratory: The patient appears to be doing better this a.m. tolerating being off noninvasive mechanical ventilation. Dr. Esparza's help is appreciated she does appear to be having some difficulty clearing her secretions I will speak follow eval placed. There is concern for an underlying mass beneath her densely consolidated right upper lobe pneumonia. I did discuss with Dr. Smith this morning he feels as though she is stable left undergo CT-guided biopsy which he has ordered in addition she'll receive platelets prior to the procedure as she is likely to have some platelet dysfunction given her significant uremia. Infectious disease: The patient was on vancomycin and Zosyn for 2 days however at this time at she has to at 2 blood culture bottles positive for strep pneumoniae sputum positive for strep pneumonia as well as well as sputum positive for Escherichia coli and urine positive for Escherichia coli SENSITIVE to ceftriaxone. Given her degree of renal failure discontinue vancomycin and Zosyn and transition her to ceftriaxone today is day 3 of antibiotics. The patient does have central venous catheter in place although she never required pressor support Cardiovascular: The patient was only briefly hypotensive for a very short period since her presentation even in the emergency room she appears to be hemodynamically stable. She did have an equivocal troponin upon admission likely related to demand ischemia we'll check an echocardiogram she does not have concerning EKG changes for acute coronary syndrome. Her home antihypertensives atenolol hydrochlorothiazide and lisinopril are all on hold. Heme: The patient's leukocytosis has resolved. The patient did have thrombocytopenia at the time of presentation which appears to be quite chronic but this is somewhat worse than usual likely related to her acute sepsis and a dilutional component related to significant amount of IV fluid she is received. The patient does have an elevated AST WHICH IS NOW DOWN TRENDING LDH and BUN however her peripheral smear does not reveal schistocytes or concern for acute hemolytic anemia we will continue to watch her H&H very closely at this time there is no evidence of bleeding. There is concern for anemia of chronic disease versus multifactorial anemia. She is not on any pharmacological DVT prophylaxis given her thrombocytopenia. The patient will receive a unit of platelets prior to her her CT-guided lung biopsy as she likely has some platelet dysfunction related to her uremia Metabolic: Metabolic acidosis improving, at the time of presentation likely multifactorial in nature related to significant uremia lactic acidosis as well as hyperglycemia. Today her creatinine is down trending however her BUN remains unchanged and did discuss with nephrology who suspect as her urine output picks up her BUN will follow. When she presented she was quite hyponatremic and hypochloremic this has improved with fluid resuscitation likely was secondary to hypovolemia. Alimentary: The patient is on GI prophylaxis she had been nothing by mouth while requiring noninvasive mechanical ventilation at this time she is having difficulty clearing secretions I'll place a swallow eval suspect she could tolerate some form of diet as her mental status continues to improve. The patient has an elevated AST which is now down trending I suspect may be related to her acute renal failure her liver function tests are otherwise fairly unremarkable. Neurologic: The patient appears to have metabolic encephalopathy related to sepsis and uremia she is oxygenating adequately at this time is maintaining appropriate hemodynamics. DISPOSITION: Her prognosis is improved today however remains guarded we'll continue to follow very closely in the medical intensive care unit. VS, I&O, 24H, Fishbone Vital Signs/I&O Vital Signs Date Time Temp Pulse Resp B/P (MAP) Pulse Ox O2 Delivery O2 Flow Rate FiO2 07/26/16 08:11 94 Nasal Cannula 5.0 07/26/16 08:11 88 07/26/16 08:11 23 07/26/16 07:01 149/67 (94) 07/26/16 04:00 98.5 07/26/16 03:01 40 I&O- Last 24 Hours up to 6 AM 07/26/16 06:00 Intake Total 1797.5 ml Output Total 925 ml Balance 872.5 ml Laboratory Data 24H LABS Laboratory Tests 2 07/25/16 11:20: Bedside Glucose (Misc Panel) 204H 07/25/16 15:53: Anion Gap 10, Glomerular Filtration Rate 25.9L, Blood Urea Nitrogen 103H, Creatinine 2.02H, Sodium Level 130L, Potassium Level 3.6, Chloride Level 97L, Carbon Dioxide Level 23, Calcium Level 7.4L 07/25/16 17:50: Bedside Glucose (Misc Panel) 179H 07/26/16 00:04: Bedside Glucose (Misc Panel) 174H 07/26/16 06:17: Neutrophils 96H, Lymphocytes (Manual) 4L, Platelet Estimate MARKED DECREASE, Remigio Cells 1+, Anion Gap 16, Glomerular Filtration Rate 33.9L, Blood Urea Nitrogen 102H, Creatinine 1.60H, Sodium Level 134L, Potassium Level 3.3L, Chloride Level 101, Carbon Dioxide Level 17L, Calcium Level 7.5L, Phosphorus Level 5.1H, Aspartate Amino Transf (AST/SGOT) 238H, Alanine Aminotransferase ( ALT/SGPT) 54, Lactate Dehydrogenase 554H, Total Creatine Kinase 355#H, Alkaline Phosphatase 137H, Total Bilirubin 0.8, Triglycerides Level 166H, Cholesterol Level 52, Total Protein 4.9L, Albumin 1.7L, Albumin/Globulin Ratio 0.53L, Vancomycin Level Trough 18.0 07/26/16 07:17: Bedside Glucose (Misc Panel) 203H 07/26/16 08:45: Magnesium Level 1.8 CBC/BMP Laboratory Tests 07/25/16 15:53 Calcium Level 7.4 L 07/26/16 06:17 Calcium Level 7.5 L, Red Blood Count 3.06 L, Mean Corpuscular Volume 90.8, Mean Corpuscular Hemoglobin 29.1, Mean Corpuscular Hemoglobin Concent 32.1, Red Cell Distribution Width 14.8 H, Phosphorus Level 5.1 H, Aspartate Amino Transf (AST/ SGOT) 238 H, Alanine Aminotransferase (ALT/SGPT) 54, Lactate Dehydrogenase 554 H , Total Creatine Kinase 355 #H, Alkaline Phosphatase 137 H, Total Bilirubin 0.8 , Triglycerides Level 166 H, Cholesterol Level 52, Total Protein 4.9 L, Albumin 1.7 L Microbiology Microbiology 07/25/16 Blood Culture, Received Pending 07/24/16 Blood Culture - Final, Complete Streptococcus Pneumoniae 07/24/16 Blood Culture - Final, Complete Streptococcus Pneumoniae 07/24/16 Gastrointestinal Tract Panel (PCR) - Final, Complete 07/24/16 Gram Stain - Final, Resulted 07/24/16 Sputum Culture - Preliminary, Resulted Escherichia Coli Streptococcus Pneumoniae Yeast Like Organism 07/24/16 Gram Stain - Final, Resulted 07/24/16 Sputum Culture - Preliminary, Resulted Escherichia Coli Streptococcus Pneumoniae 07/24/16 Urine Culture - Final, Complete Escherichia Coli NARCISO SALES MD Jul 26, 2016 10:15
--- NOTE | 2016-07-26 10:30 | IPN ---
DATE: 07/26/2016 Mrs. Ponce is now on nasal cannula, having been weaned off her BiPAP. She is still very rhonchorous. She is not in all that much respiratory distress. She is complaining of "pain all over." Her vital signs show a maximum temperature (t-max) of 98.8 with a heart rate that ranges between 93 and 89 in a sinus rhythm, respiratory rate of 18 to 23 without the use of accessory muscles, who is 94 to 95% saturated on 5 liters nasal cannula and whose blood pressure is ranging between 150/69 to 141/64. Her intake and output over the past 24 hours has been recorded as 1277 in and 532 out for a positivity of 744 mL. Her weight today is 57.9 kg. She has only put out 530 mL in urine. PHYSICAL EXAMINATION: LUNGS: Her lungs show coarse rhonchi throughout, which do not clear with coughing. She is not able to generate that forceful of a cough, however. Percussion note is dull at the right upper hemithorax. CARDIAC EXAM: Without murmurs, clicks, gallops or rubs. I cannot feel her point of maximum impulse (PMI). S1, S2 are normal. ABDOMEN: Mildly tender all over. There is no guarding or rigidity. Bowel sounds are positive. There is no hepatomegaly. No costovertebral angle tenderness. EXTREMITIES: Show no pretibial edema. No calf tenderness. No differential swelling of the upper extremities. SKIN: Warm, dry and perfused without cyanosis or mottling, including that of the nail beds and knees. NECK: Supple. There is no jugular venous distention. No subcutaneous emphysema. Trachea is midline. MOUTH: Shows her mucous membranes to be pink and moist. Lips and commissures without lesions. EYES: Show her pupils to be equal and reactive. Extraocular motion intact. Sclerae anicteric. NEUROLOGIC: Shows II through XII intact with gross motor and gross sensation intact. Gait is not tested. PSYCHIATRIC: Shows her to be awake and alert, oriented times three with appropriate mood and affect. Her face does not look swollen and she does not have swelling of her arms. Her white count today is 9.8 with a hemoglobin and hematocrit of 8.9 and 27.8, essentially unchanged from yesterday with a platelet count of 39, that is down from 50. Differential is pending. There are no blood gases on her today. Her microbiology has returned Escherichia (E) coli in the sputum, along with many gram-positive cocci. Her blood cultures are growing Strep pneumoniae. She also has a urine culture with E coli. Her chest x-ray today done portably still shows complete consolidation of the right upper hemithorax following the fissure. There is some cephalization of vessels in the semi upright portable, although I do not know really what to make of that observation as it is done portably and semi upright. Costophrenic angles are sharp. IMPRESSION: 1. Metabolic acidosis, improving secondary to underlying sepsis and to renal insufficiency. 2. Possible postobstructive pneumonia. 3. Renal failure, improving with a creatinine down to 1.6. 4. Dehydration giving rise to the above renal failure, improving. 5. Probable large mass, most likely malignant, in the right upper lobe. 6. Chronic obstructive pulmonary disease (COPD). 7. Hypertension. 8. Anxiety. 9. Depression. 10. Bacteremia. 11. Urinary tract infection (UTI) growing E coli. PLAN AND DISCUSSION: It is notable that while her sputum is growing E coli, her two blood cultures are growing Strep pneumoniae. It still looks like a mass to me rather than a dense consolidation secondary to pneumonia. I suspect that it is a combination of both heart failure and postobstructive pneumonia secondary to a mass. She is thrombocytopenic down to 39. I have asked radiology to undertake a needle biopsy and just before the needle biopsy I will transfuse her 10 units of platelets. I am very concerned that this is such a large mass and that my suspicion is that it is going to represent small cell carcinoma, that we may start to run into possible development of SVC syndrome over the weekend. I have no indications that she have that syndrome now. It would be good to have tissue if we have to initiate radiation and/or chemotherapy over the weekend. SUNITA
[2016-07-26] MEDS: guaiFENesin ER 600 MG TAB PO SCH ×2 (10:41→21:05)
[2016-07-26] MEDS: cefTRIAXone SOD 2 GM in D5W MINI-BAG PLUS 50 ML IV SCH (11:56)
[2016-07-26] MEDS ORDERED: METOPROLOL 5 MG/5 ML VIAL As Ordered ONE (14:51)
[2016-07-26] MEDS ORDERED: METOPROLOL 5 MG/5 ML VIAL IV ONE (15:00)
[2016-07-26] MEDS: IPRATROPIUM 0.5MG/ALBUTEROL 2.5MG INH SOL UD 3ML (DUONEB)(J7620) NEB PRN (15:15)
--- NOTE | 2016-07-26 15:23 | REP ---
CT GUIDED NEEDLE PLACEMENT: The risks and benefits of the procedure were explained and informed consent was obtained by the healthcare proxy. The right upper lobe was lung mass was localized using CT guidance. The skin was prepped and draped in a sterile fashion. 1% lidocaine was used as a local anesthetic. Using CT guidance a 19/20-gauge coaxial needle biopsy system was inserted and advanced into the mass. Five core biopsy samples were obtained and sent to the lab. The patient tolerated the procedure well and there were no immediate complications. Reviewed by RIO Min 07/26/2016 03:52 PEdited and Signed by Boy Barrios MD 07/26/2016 05:28 P
--- NOTE | 2016-07-26 15:26 | REP ---
PORTABLE CHEST: AP portable view of the chest is performed status post right lung biopsy. There is no pneumothorax. Right upper lobe consolidative opacity is again seen as well right central venous catheter. IMPRESSION: No pneumothorax status post right lung biopsy. Signed by Boy Barrios MD 07/26/2016 05:25 P
[2016-07-26] MEDS ORDERED: DIGOXIN INJ 0.5 MG/2 ML AMP (J1160) IV ONE (15:30)
[2016-07-26] MEDS ORDERED: DESMOPRESSIN ACETATE 20 MCG in NS 50 ML IV ONE (16:00)
[2016-07-26 16:01] LABS: MEAN CORPUSCULAR HEMOGLOBIN 29.2 pg (27.0-33.0); MEAN CORPUSCULAR HGB CONC 32.5 g/dl (32.0-36.5); MEAN CORPUSCULAR VOLUME 89.9 fl (80.0-96.0); RED CELL DISTRIBUTION WIDTH 15.1 % (11.5-14.5); WHITE BLOOD COUNT 13.3 K/mm3 (4.0-10.0)
[2016-07-26 17:03] LABS: URIC ACID 12.2 MG/DL (2.6-6.0)
--- NOTE | 2016-07-26 18:07 | REP ---
PORTABLE CHEST: AP portable view of the chest is performed and compared to prior exams today. The patient had a right lung biopsy today. Again, there is no pneumothorax and no change since prior study. IMPRESSION: No pneumothorax, status post right lung biopsy. Signed by Boy Barrios MD 07/29/2016 08:16 P
[2016-07-26] MEDS ORDERED: amLODIPine 5 MG TAB PO ONE (21:00)
[2016-07-27] VITALS (54 sets, daily range): BP systolic 77–216; BP diastolic 41–98
[2016-07-27 00:18] LABS: ABG BASE EXCESS -5.3 (-2.0-2.0); ABG HCO3 19.6 MEQ/L (22.0-26.0); ABG PARTIAL PRESSURE CO2 35.6 mmHg (35.0-45.0); ABG PARTIAL PRESSURE O2 85.9 mmHg (75.0-100.0); ABG TOTAL CO2 20.7 MEQ/L (23.0-31.0); ABG pH (ARTERIAL) 7.358 UNITS (7.350-7.450)
[2016-07-27] MEDS ORDERED: hydrALAZINE INJ 20 MG/ML VIAL IV ONE (01:00)
[2016-07-27] MEDS: IPRATROPIUM 0.5MG/ALBUTEROL 2.5MG INH SOL UD 3ML (DUONEB)(J7620) NEB SCH ×4 (01:27→19:42)
[2016-07-27] MEDS ORDERED: NITROGLYCERIN 2% OINT 1 GM *U/D* PKT TOP ONE (01:45)
[2016-07-27] MEDS ORDERED: FUROSEMIDE 40 MG/4 ML VIAL (J1940) IV ONE (01:45)
[2016-07-27 03:24] LABS: DIFF SLIDE NUMBER 28; MEAN CORPUSCULAR HEMOGLOBIN 29.4 pg (27.0-33.0); MEAN CORPUSCULAR HGB CONC 32.5 g/dl (32.0-36.5); MEAN CORPUSCULAR VOLUME 90.5 fl (80.0-96.0); RED CELL DISTRIBUTION WIDTH 14.9 % (11.5-14.5); WHITE BLOOD COUNT 14.5 K/mm3 (4.0-10.0)
[2016-07-27 03:49] LABS: ALBUMIN/GLOBULIN RATIO 0.56 (1.00-1.93); CALCIUM LEVEL 7.8 MG/DL (8.8-10.2); CREATININE FOR GFR 1.27 MG/DL (0.55-1.02); GLOMERULAR FILTRATION RATE 44.3 (>39); POTASSIUM SERUM 3.4 MEQ/L (3.5-5.1); TOTAL PROTEIN 5.6 GM/DL (6.4-8.2)
[2016-07-27 04:00] LABS: PLATELET COUNT, AUTOMATED 49 k/mm3 (150-450)
[2016-07-27] MEDS ORDERED: NITROGLYCERIN/D5W 100MCG/ML 25 MG in APPROPRIATE DILUENT 1 EA IV SCH (04:00)
[2016-07-27 04:16] LABS: PHOSPHORUS LEVEL 3.8 MG/DL (2.5-4.9)
[2016-07-27] MEDS: HumaLOG INSULIN (NovoLOG) PER UNIT SC SCH ×3 (06:22→17:58)
[2016-07-27] MEDS: SLF 3 ML SYR IV SCH ×3 (06:22→21:10)
[2016-07-27] MEDS: KCL 20MEQ IN 100ML SWI (KRUN) 20 MEQ in APPROPRIATE DILUENT 1 EA IV SCH ×4 (06:22→07:41)
[2016-07-27] MEDS: SODIUM CHLORIDE 0.9% INJ 10 ML SYR IV SCH ×3 (06:22→21:10)
[2016-07-27 06:56] LABS: BANDS 1 % (< 11); NUCLEATED RED BLOOD CELL 1 % (0-0)
[2016-07-27 06:58] LABS: ANISOCYTOSIS 1+; POIKILOCYTOSIS 1+
--- NOTE | 2016-07-27 08:41 | REP ---
Portable chest x-ray: Two views. History: Shortness of breath. Comparison chest x-ray is from July 26, 2016. Findings: EKG monitoring electrodes are again seen. A right internal jugular venous line terminates in the expected location of the superior vena cava. There is complete opacification throughout the distribution of the right upper lobe which appears to abut the minor fissure inferiorly. This is unchanged. The left lung and remainder of the right lung remain free of infiltrate although there is diffuse interstitial pattern which may reflect Carlos B lines. This is unchanged. The aorta is calcific and slightly tortuous as before. Impression: No significant change from the earlier study. Dense opacification persists throughout the distribution of the right upper lobe. Interstitial edema/fibrosis pattern. Signed by Shane Sumner MD 07/27/2016 09:54 A
--- NOTE | 2016-07-27 08:51 | ECGEPIP ---
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
[2016-07-27] MEDS: cefTRIAXone SOD 2 GM in D5W MINI-BAG PLUS 50 ML IV SCH (09:04)
[2016-07-27] MEDS: MOM 30ML SUSPENSION UDC PO SCH (09:04)
[2016-07-27] MEDS: DOCUSATE SODIUM 100 MG CAP PO SCH ×2 (09:05→21:09)
[2016-07-27] MEDS: guaiFENesin ER 600 MG TAB PO SCH ×2 (09:05→21:09)
[2016-07-27] MEDS: SERTRALINE 100 MG TAB PO SCH ×2 (09:05→21:10)
[2016-07-27] MEDS: PANTOPRAZOLE 40MG INJ (PROTONIX) (C9113) IV SCH (09:06)
[2016-07-27] MEDS: amLODIPine 5 MG TAB PO SCH (09:06)
[2016-07-27 09:09] LABS: ABG BASE EXCESS -13.3 (-2.0-2.0); ABG HCO3 10.9 MEQ/L (22.0-26.0); ABG PARTIAL PRESSURE O2 93.1 mmHg (75.0-100.0); ABG TOTAL CO2 11.5 MEQ/L (23.0-31.0); ABG pH (ARTERIAL) 7.332 UNITS (7.350-7.450)
--- NOTE | 2016-07-27 09:35 | IPN ---
DATE: 07/26/2016 SUBJECTIVE: The patient was seen and examined at the bedside today in the morning in the intensive care unit (ICU). She was on nasal cannula. She reports that her shortness of breath is still the same. She continues to be on IV fluid hydration. Her creatinine is better today as compared with yesterday; however, she continues to have high BUN levels. Thoracic surgery and pulmonary critical care service was appreciated, and plan is to do a possible CT-guided biopsy of the right upper lobe mass to rule out malignancy. The patient is also having Escherichia (E) coli urinary tract infection (UTI) and Streptococcus (strep) pneumoniae bacteremia REVIEW OF SYSTEMS: The patient is not able to provide any reliable review of systems; however, she does report she is feeling thirsty, she is short of breath. She reports her shortness of breath is not getting better. She reports feeling weak and tired, and she is hungry at this time. The rest of the review of systems is negative. OBJECTIVE: VITAL SIGNS: Temperature is 97.2 degrees Fahrenheit, blood pressure is 156/70, pulse is 89, respiratory rate of 19, saturating 95% on nasal cannula at 5 liters. INTAKE/OUTPUT: Urine output recorded as 532 mL yesterday, 550 mL so far today since overnight. Weight on the bed scale is 57.9 kg. PHYSICAL EXAMINATION: GENERAL: The patient is awake, alert, oriented times two, laying in bed on nasal cannula, in moderate respiratory distress. HEAD AND NECK EXAM: Extraocular muscles intact. Pupils equally round and reactive to light. Mucous membranes are moist. Neck is supple. There is no jugular venous distention (JVD). The patient has a right internal jugular (IJ) triple lumen catheter. CARDIOVASCULAR: S1, S2, regular rate. No murmur, rub or gallop. RESPIRATORY: Decreased breath sounds and coarse rhonchi and crepitations in the right upper lobe. The patient has some expiratory rhonchi on the left side as well. ABDOMEN: Abdomen is soft. Positive bowel sounds. Nontender. No ascites. No organomegaly. GENITOURINARY: The patient has an indwelling Rand catheter. Urine in the bag is clear at this time. EXTREMITIES: No clubbing or cyanosis. Pulses are 2+. CENTRAL NERVOUS SYSTEM: The patient follows commands and answers some questions. She moves all extremities. SKIN: No rashes or ulcers. LAB REVIEW: CBC showed a WBC of 13.3, hemoglobin 8.9, platelets are 60. BMP done today in the morning showed a sodium of 134, potassium 3.3, chloride 101, bicarbonate is 17, BUN 102, creatinine is 1.6, GFR is 33.9, glucose is 173, calcium is 7.5, phosphorus 5.1, magnesium 1.8, LDH is 554, albumin 1.7. Microbiology: Sputum is growing E. coli and Streptococcus pneumoniae. Urine culture is growing E coli and blood culture times two is positive for Streptococcus pneumoniae. IMAGING: A chest x-ray done today in the morning showed right upper lobe consolidation, unchanged from the previous exam. The patient also got a CT-guided biopsy of the mass in the right upper lobe. CURRENT INPATIENT MEDICATIONS: The patient's medications were all reviewed by me. She is on Rocephin 2 grams IV every 24 hours. She also got 20 mcg of DDAVP one dose. The patient got 20 mEq of KCl IV times one, magnesium sulfate 1 gram IV times one. Her IV fluids have been stopped. There is no other change in the medications today as compared with yesterday. ASSESSMENT: A 79-year-old female with 180 pack-year history of smoking, history of pneumonia and empyema in the past as well, along with chronic obstructive pulmonary disease (COPD), admitted at this time to the intensive care unit (ICU) because of severe sepsis secondary to right upper lobe pneumonia, E coli urinary tract infection, Streptococcus pneumoniae bacteremia. The patient has acute oliguric renal failure. PLAN: 1. Severe sepsis secondary to right upper lobe pneumonia, E. coli urinary tract infection and Streptococcus pneumoniae bacteremia. The patient is currently on intravenous (IV) Rocephin. ADDENDUM: (Dictated on 07/26/2016) Patient is on IV Rocephin which covers E. coli urinary tract infection and strep pneumoniae bacteremia. The rest of the antibiotic management is per primary team. 2. Acute oliguric renal failure. It is secondary to severe sepsis, hypotension and use of diuretics, lisinopril and metformin before presentation to the hospital. Patient was given IV fluid hydration. Creatinine is coming down. However, because of the shortness of breath and possibility of fluid overload, her IV fluids have been stopped. Continue to monitor urine output. Patient is making around 30 mL of urine an hour now. There is no need of hemodialysis at this time. High BUN level is secondary to right upper lobe pneumonia, possibility of malignancy and dehydration. 3. Acute hypoxic and hypercapnic respiratory failure. It is secondary to severe right upper lobe pneumonia which is most likely postobstructive. Patient was on bilevel positive airway pressure (BiPAP) yesterday. She is currently on nasal cannula. The rest of the management is as per pulmonary critical care service. 4. Possible right upper lobe malignancy. Patient got a CT guided biopsy of the right upper lobe of the lung mass today. She has high LDH levels. I have also ordered uric acid level to rule out the possibility of tumor lysis syndrome. 5. Hypocalcemia. Patient was given KCl 20 mEq IV times one dose today. 6. Hyponatremia. It is hypovolemic hyponatremia. Sodium is 134 today. I am also going to do urine osmolality and urine sodium. There is a possibility of syndrome of inappropriate secretion of antidiuretic hormone (SIADH) induced by right upper lobe mass as well. 7. Metabolic acidosis. Patient's bicarbonate is 17 now. I am going to start the patient on Bicitra by mouth. Thank you for involving us in the care of this patient. We shall be happy to follow the patient along with you.
[2016-07-27] MEDS: ATENOLOL 50 MG TAB PO SCH (10:18)
--- NOTE | 2016-07-27 10:22 | IPNPDOC ---
Date Seen The patient was seen on 07/27/16. Progress Note Overnight events: The patient was found to be hypertensive and was started on Norvasc 5 mg however this persisted in the face of hydralazine 10 mg IV and Lasix 40 mg IV given 1. As such the patient was started on a nitro drip SUBJECTIVE: Patient is resting awake in bed on nasal cannula. The patient did tell me her name and that she is in the hospital she cannot tell me the date month year she cannot tell me who the president is and why she is in the hospital. OBJECTIVE PHYSICAL EXAMINATION: VITAL SIGNS: Please see below. GENERAL: Frail elderly female laying in bed she continues to cough up copious amounts of blood-tinged sputum she is tachypnic and appears breathless at this time HEENT: Moist mucous membranes cranial nerves II through XII appear to be intact CARDIOVASCULAR: S1-S2 regular no additional heart sounds appreciated. RESPIRATORY: Scattered rales throughout both bilateral lower lobes diminished breath sounds in the right upper lobe. Transmitted upper airway sounds ABDOMINAL: Sounds present abdomen soft nontender EXTREMITIES: No clubbing cyanosis or edema NEUROLOGICAL: Spontaneously Moves all 4 extremities LABORATORY DATA: Please see below. MICROBIOLOGY: Please see below. IMAGING: CT chest:Diffuse consolidative opacity throughout the right upper lobe. Underlying empyema cannot be excluded without IV contrast. Multiple enlarged mediastinal lymph nodes are present. Chest x-ray from 07/27/2016:No significant change from the earlier study. Dense opacification persists throughout the distribution of the right upper lobe. Interstitial edema/ fibrosis pattern. Liver ultrasound:Multiple adherent gallbladder calculi versus gallbladder polyps versus combination. Right renal cyst. Otherwise, negative abdominal right upper quadrant ultrasound. Renal ultrasound:1. Unremarkable ultrasound examination of the kidneys. 2. Urinary bladder is catheterized and contracted. 3. Splenomegaly. DVT prophylaxis ordered?: Sequentials and teds no pharmacological agents secondary to thrombocytopenia ASSESSMENT AND PLAN: This is a 70-year-old female with respiratory failure and renal failure likely secondary to strep pneumoniae pneumonia and bacteremia. Respiratory: The patient appears to be stable at this time. Post lung biopsy yesterday she did become briefly more tachypnic hypoxic however at this time she appears to be stable and improved from that episode. Overnight she was once again placed on noninvasive mechanical ventilation. The patient does appear to be having some difficulty clearing her secretions pulmonary services help is greatly appreciated. There is concern for an underlying mass beneath her densely consolidated right upper lobe pneumonia. Infectious disease: The patient was on vancomycin and Zosyn for 2 days however at this time at she has to at 2 blood culture bottles positive for strep pneumoniae sputum positive for strep pneumonia as well as well as sputum positive for Escherichia coli and urine positive for Escherichia coli all sensitive to ceftriaxone. Given her degree of renal failure discontinue vancomycin and Zosyn and transition her to ceftriaxone today is day 4 of antibiotics. The patient does have central venous catheter in place although she never required pressor support and if we are able to achieve peripheral IVs likely be discontinued Cardiovascular: The patient was only briefly hypotensive for a very short period since her presentation even in the emergency room. Overnight she was asked quite hypertensive and started on a nitro drip at this time she appears be closer to normotensive. I'll attempt to wean her from a nitro drip I suspect this may be related to significant fluid resuscitation she required secondary to sepsis. She did receive 1 dose of Lasix early this morning. She did have an equivocal troponin upon admission likely related to demand ischemia we'll follow -up the results of a echocardiogram which is completed this morning. Post lung biopsy she was briefly in atrial fibrillation she did convert after 5 mg of IV Lopressor. Now that her blood pressure can tolerate this and will restart her home atenolol and her simvastatin. Heme: Persistent leukocytosis secondary to sepsis, persistent anemia likely dilutional and perhaps even a component of anemia of chronic disease she likely had some minor bleeding post lung biopsy as having associated hemoptysis with this worsened by thrombocytopenia and platelet dysfunction related to uremia she did receive 1 dose of DDAVP yesterday we'll continue monitor her hemoglobin and hematocrit closely. She has fairly chronic thrombocytopenia but has been worsened in the setting of severe sepsis and likely dilutional component as well she did receive 1 unit of platelets prior to her lung biopsy will continue monitor her platelet counts closely. She is not pharmacological DVT prophylaxis secondary to this Metabolic: Metabolic acidosis resolving, at the time of presentation likely multifactorial in nature related to significant uremia lactic acidosis as well as hyperglycemia. The patient's creatinine continues to return to baseline her BUN slowly follows she did receive 1 dose of IV Lasix early this morning she may benefit from further will discuss further with nephrology. She is hypokalemic this morning will replete. Alimentary: The patient is on GI prophylaxis she had been nothing by mouth while requiring noninvasive mechanical ventilation at this time she is having difficulty clearing secretions tolerating sips of water we will attempt a bedside swallow and advance her diet as tolerated. The patient has an elevated AST which is now down trending I suspect may be related to her acute renal failure her liver function tests are otherwise fairly unremarkable. Neurologic: The patient appears to have metabolic encephalopathy related to sepsis and uremia she is oxygenating adequately at this time is maintaining appropriate hemodynamics. It is somewhat improved today I suspect as her BUN improves and her sepsis begins to resolve over the next 24-48 hours I'm optimistic it will improve as well DISPOSITION: Her prognosis is improved today we'll continue to follow very closely in the medical intensive care unit. VS, I&O, 24H, Fishbone Vital Signs/I&O Vital Signs Date Time Temp Pulse Resp B/P (MAP) Pulse Ox O2 Delivery O2 Flow Rate FiO2 07/27/16 09:06 95 146/65 07/27/16 07:01 95 07/27/16 06:31 30 Nasal Cannula 5.0 07/27/16 06:01 30 07/27/16 04:01 98.8 I&O- Last 24 Hours up to 6 AM 07/27/16 05:59 Intake Total 1095 ml Output Total 1920 ml Balance -825 ml Laboratory Data 24H LABS Laboratory Tests 2 07/26/16 12:03: Bedside Glucose (Misc Panel) 238H 07/26/16 18:25: Bedside Glucose (Misc Panel) 227H 07/26/16 20:31: Urine Random Osmolality 386L, Urine Random Creatinine 38.3, Urine Random Sodium 17 07/26/16 23:30: Bedside Glucose (Misc Panel) 166H 07/26/16 23:49: Blood Gas Bicarbonate Standard 20.0L, Arterial Blood pH 7.358, Arterial Blood Partial Pressure CO2 35.6, Arterial Blood Partial Pressure O2 85.9, Arterial Blood Total CO2 20.7L, Arterial Blood HCO3 19.6L, Arterial Blood Base Excess - 5.3L, Arterial Blood Oxygen Saturation 95.0 07/27/16 02:54: Neutrophils 95H, Band Neutrophils 1, Lymphocytes (Manual) 3L, Nucleated Red Blood Cells 1H, Atypical Lymphocytes 1, Platelet Estimate MARKED DECREASE, Poikilocytosis 1+, Anisocytosis 1+, Anion Gap 16, Glomerular Filtration Rate 44.3, Blood Urea Nitrogen 91H, Creatinine 1.27H, Sodium Level 139, Potassium Level 3.4L, Chloride Level 104, Carbon Dioxide Level 19L, Calcium Level 7.8L, Phosphorus Level 3.8#, Aspartate Amino Transf (AST/SGOT) 159H, Alanine Aminotransferase (ALT/SGPT) 53, Lactate Dehydrogenase 511H, Total Creatine Kinase 186, Alkaline Phosphatase 213H, Total Bilirubin 1.0, Triglycerides Level 116, Cholesterol Level 51, Total Protein 5.6L, Albumin 2.0L, Magnesium Level 2.0 , Albumin/Globulin Ratio 0.56L 07/27/16 05:37: Bedside Glucose (Misc Panel) 257H 07/27/16 07:42: Bedside Glucose (Misc Panel) 294H 07/27/16 08:55: Blood Gas Bicarbonate Standard 14.0L, Arterial Blood pH 7.332L, Arterial Blood Partial Pressure CO2 21.0L, Arterial Blood Partial Pressure O2 93.1, Arterial Blood Total CO2 11.5L, Arterial Blood HCO3 10.9L, Arterial Blood Base Excess - 13.3L, Arterial Blood Oxygen Saturation 95.5 CBC/BMP Laboratory Tests 07/26/16 15:09 Red Blood Count 3.06 L, Mean Corpuscular Volume 89.9, Mean Corpuscular Hemoglobin 29.2, Mean Corpuscular Hemoglobin Concent 32.5, Red Cell Distribution Width 15.1 H 07/27/16 02:54 Red Blood Count 3.13 L, Mean Corpuscular Volume 90.5, Mean Corpuscular Hemoglobin 29.4, Mean Corpuscular Hemoglobin Concent 32.5, Red Cell Distribution Width 14.9 H, Calcium Level 7.8 L, Phosphorus Level 3.8 #, Aspartate Amino Transf (AST/SGOT) 159 H, Alanine Aminotransferase (ALT/SGPT) 53 , Lactate Dehydrogenase 511 H, Total Creatine Kinase 186, Alkaline Phosphatase 213 H, Total Bilirubin 1.0, Triglycerides Level 116, Cholesterol Level 51, Total Protein 5.6 L, Albumin 2.0 L Microbiology Microbiology 07/25/16 Blood Culture - Preliminary, Resulted No growth after 24 hours . All specim... 07/24/16 Blood Culture - Final, Complete Streptococcus Pneumoniae 07/24/16 Blood Culture - Final, Complete Streptococcus Pneumoniae 07/24/16 Gastrointestinal Tract Panel (PCR) - Final, Complete 07/24/16 Gram Stain - Final, Complete 07/24/16 Sputum Culture - Final, Complete Escherichia Coli Streptococcus Pneumoniae Yeast Like Organism 07/24/16 Gram Stain - Final, Complete 07/24/16 Sputum Culture - Final, Complete Escherichia Coli Streptococcus Pneumoniae 07/24/16 Urine Culture - Final, Complete Escherichia Coli NARCISO SALES MD Jul 27, 2016 10:22
[2016-07-27] MEDS: NORCO, ANEXSIA 5/325MG TABLET (HYDROcodone/ACETAMINOPHEN) PO PRN (12:30)
[2016-07-27] MEDS ORDERED: LIDOCAINE 1% MDV 20ML VIAL As Ordered ONE (15:06)
[2016-07-27] MEDS ORDERED: MIDAZOLAM INJ 2 MG/2 ML VIAL (J2250) As Ordered ONE (15:06)
[2016-07-27] MEDS ORDERED: PROPOFOL 1,000 MG in APPROPRIATE DILUENT 1 EA IV SCH (15:20)
[2016-07-27] MEDS ORDERED: PROPOFOL 1,000 MG/100 ML VIAL As Ordered ONE (15:21)
[2016-07-27] MEDS ORDERED: LIDOCAINE 1% MDV 20ML VIAL TOP ONE (15:30)
[2016-07-27] MEDS ORDERED: MIDAZOLAM INJ 2 MG/2 ML VIAL (J2250) IM ONE (15:30)
[2016-07-27] MEDS ORDERED: MIDAZOLAM INJ 2 MG/2 ML VIAL (J2250) IV ONE (15:30)
[2016-07-27] MEDS ORDERED: FLUMAZENIL 0.5 MG/5 ML VIAL As Ordered ONE (15:50)
[2016-07-27] MEDS ORDERED: FLUMAZENIL 0.5 MG/5 ML VIAL IV STA (16:06)
--- NOTE | 2016-07-27 17:51 | IPN ---
DATE: 07/27/2016 Ms. Ponce is seen this morning on her bedside in intensive care unit. She is not feeling well. She has a sitter in the room, as she was agitated earlier. The patient was admitted with shortness of breath, altered mentation, and weakness. She is found to have right upper lobe dense infiltrate and oliguric acute renal failure. She has been treated with intravenous (IV) fluid hydration. Kidney function did improve. Her oral intake remains poor, and IV fluid has now been stopped. PHYSICAL EXAMINATION: This is an elderly female who looks quite sick. Temperature is 98.8 degrees Fahrenheit, heart rate 90 per minute, respiratory rate 30 per minute, blood pressure 134/65 mm of mercury, and oxygen saturation 95% on 5 liters oxygen. Intake and output records from yesterday show total intake 1555 and output 1230. She is in positive fluid balance of just over 3 liters since admission. Her head is atraumatic. She is chronically ill looking. Pupils are equal and reactive to light, and sclerae are anicteric. Oral mucosa is somewhat dry. Neck is supple, and jugular venous distention (JVD) is difficult to be assessed due to central line presence. Heart sounds are regular. Lungs have bilateral rhonchi with diminished breath sounds on the right side. Abdomen soft and nontender. Bowel sounds are present. Extremities have no cyanosis or clubbing. Skin has no rash or ulcers. Neurologically, she is awake and able to answer simple questions. Today's labs show sodium 139, potassium 3.4, chloride 104, CO2 of 19, BUN 91, creatinine 1.27, glucose is 213. Her uric acid level was 12.2 yesterday. WBC count is 14.5, hemoglobin 9.2, and hematocrit 28.3. PROBLEMS: 1. Acute renal failure superimposed on chronic kidney disease. Kidney function has improved significantly since admission. At present we will monitor her kidney function without any intervention. There is no indication for dialysis. 2. Hypokalemia. This is nutritional and related to poor oral intake. Potassium has been replaced. Electrolytes will be checked again tomorrow morning. 3. Hyponatremia. Sodium level has already corrected, and IV fluid has been stopped. 4. Pneumonia. The patient remains on intravenous ceftriaxone. 5. Hypertension. The patient is on multiple antihypertensives, and blood pressure seems to be well controlled.
[2016-07-27] MEDS ORDERED: amLODIPine 5 MG TAB PO ONE (21:00)
[2016-07-27] MEDS: ATORVASTATIN 20 MG TAB PO SCH (21:09)
[2016-07-28] VITALS (20 sets, daily range): BP systolic 124–233; BP diastolic 59–100
[2016-07-28] MEDS: HumaLOG INSULIN (NovoLOG) PER UNIT SC SCH ×5 (00:16→21:45)
[2016-07-28] MEDS: IPRATROPIUM 0.5MG/ALBUTEROL 2.5MG INH SOL UD 3ML (DUONEB)(J7620) NEB SCH ×4 (02:58→20:15)
[2016-07-28 05:53] LABS: ALBUMIN 1.9 GM/DL (3.2-5.2); ALBUMIN/GLOBULIN RATIO 0.45 (1.00-1.93); ALKALINE PHOSPHATASE 326 U/L (45-117); ALT/SGPT 51 U/L (12-78); ANION GAP 8 MEQ/L (8-16); AST/SGOT 93 U/L (15-37); BILIRUBIN,TOTAL 0.8 MG/DL (0.2-1.0); BLOOD UREA NITROGEN 86 MG/DL (7-18); CALCIUM LEVEL 8.7 MG/DL (8.8-10.2); CARBON DIOXIDE LEVEL 25 MEQ/L (21-32); CHLORIDE LEVEL 112 MEQ/L (98-107); CHOLESTEROL LEVEL 62 MG/DL (< 200); CREATININE FOR GFR 0.93 MG/DL (0.55-1.02); GLOMERULAR FILTRATION RATE > 60.0 (>39); GLUCOSE, FASTING 170 MG/DL (83-110); PHOSPHORUS LEVEL 3.2 MG/DL (2.5-4.9); SODIUM LEVEL 145 MEQ/L (136-145); TOTAL PROTEIN 6.1 GM/DL (6.4-8.2); TRIGLYCERIDES LEVEL 123 MG/DL (<150)
[2016-07-28 05:57] LABS: DIFF SLIDE NUMBER 24; MEAN CORPUSCULAR HEMOGLOBIN 28.6 pg (27.0-33.0); MEAN CORPUSCULAR HGB CONC 31.4 g/dl (32.0-36.5); MEAN CORPUSCULAR VOLUME 91.3 fl (80.0-96.0); RED CELL DISTRIBUTION WIDTH 15.1 % (11.5-14.5); WHITE BLOOD COUNT 13.1 K/mm3 (4.0-10.0)
[2016-07-28] MEDS: SODIUM CHLORIDE 0.9% INJ 10 ML SYR IV SCH ×3 (06:00→21:46)
[2016-07-28] MEDS: SLF 3 ML SYR IV SCH ×3 (06:00→21:45)
[2016-07-28 06:06] LABS: PLATELET COUNT, AUTOMATED 63 k/mm3 (150-450)
--- NOTE | 2016-07-28 06:13 | RO ---
DATE OF PROCEDURE: 07/27/2016 PREOPERATIVE DIAGNOSIS: Hypoxia. Mucus plugging. POSTOPERATIVE DIAGNOSIS: Hypoxia. Mucus plugging. PROCEDURE: Bronchoscopy. SURGEON: Jordan Erickson DO TERMITE TREATER: No reference assistant. ANESTHESIA: Versed and propofol. DESCRIPTION OF PROCEDURE: After informed consent was reviewed with the patient verbally and discussed with the son who is a agreement, bronchoscopy was initiated. Time-out was performed with two patient identifiers identifying correct site, correct procedure. Posterior pharynx was anesthetized with Cetacaine spray. Bite block was placed. The patient was preoxygenated. Because of her significant bouts of hypoxia with mucus plugging, I did place an endotracheal tube over the bronchoscope. After I advanced the bronchoscope into the airway, after adequate sedation was administered, the endotracheal tube was advanced into the airway and secured. Copious amounts of thick yellow mucus was suctioned. There was not only mucus in the right upper lobe as expected, there was also mucus in the left lower lobe and left upper lobe, which was suctioned. There was very large amounts of thick stringy mucus in the right upper lobe. There was no endobronchial lesions in the right upper lobe. 30 mL of saline was administered into the anterior segment, posterior segment and apical segment of the right upper lobe. These areas were suctioned. The posterior segment in the right upper lobe continued to have significant amount of mucus. Another 30 mL of saline was administered into this airway. There was a long thick piece of mucus coming from the airway. I used a brush to attempt to break the mucus up. There was no evidence of trauma of the airway after the brush was used. Another 30 mL of saline was administered into this airway and suctioned. After adequate clearance of mucus from the airway, the bronchoscope was removed. There was no observed complications. No evidence of hemorrhage. The patient was then extubated upon awakening. Oxygen saturation is significantly improved when compared to pre bronch to 98% on 4 liters.
--- NOTE | 2016-07-28 07:00 | ECHO ---
DATE OF PROCEDURE: 07/27/2016 AGE: 70 GENDER: Female REFERRING PHYSICIAN: Dr. Nice. HEIGHT: 63 inches. WEIGHT: 121 pounds. BODY SURFACE AREA: 1.56 sq m. INPATIENT: Intensive care unit (ICU) Room 3203. INDICATION: Dyspnea. MEASUREMENTS: 2D MEASUREMENTS: RV - 4.1 cm LV- 3.4 cm Septum - 1.3 cm Posterior wall - 1.3 cm Aortic root - 3.1 cm LA - 3.6 cm LVEF - 65% DOPPLER MEASUREMENTS: AV - 2.1 m/s LVOT - 1.3 m/s MV-E: 110 A: 150 EA ratio 0.8 Early mitral deacceleration time - 232 ms E-prime - 4.3 A-prime - 10 E/E prime ratio 26.6 PV - 1.2 m/s Pulmonary artery acceleration time - 79 ms RVSP - 62 mmHg IVC - 1.9 - 2.0 cm Underlying sinus rhythm. 2 D and M mode echocardiography with pulsed, continuous wave, color flow and tissue doppler studies were performed. CONCLUSIONS: Mild concentric left ventricular hypertrophy with hyperkinetic wall motion. Left atrial size upper limits of normal with Doppler evidence of an impairment of LV diastolic function and significantly elevated mean left atrial pressure. At least borderline dilated right heart chambers with right ventricular hypokinesis and Doppler evidence of severe pulmonaryhypertension. Normal IVC size with only slightly reduced respiratory collapse suggestive of estimated central venous pressure of 10 mmHg. Aortic valvular sclerosis without stenosis or insufficiency (elevated peak systolic transvalvular gradient related to hyperkinetic flow). Mild mitral annular calcification without Doppler evidence of functional valvular abnormality. MTDD
[2016-07-28 07:03] LABS: HYPOCHROMASIA 1+; NUCLEATED RED BLOOD CELL 1 % (0-0)
[2016-07-28 07:04] LABS: ANISOCYTOSIS 1+
--- NOTE | 2016-07-28 07:20 | IPN ---
DATE: 07/27/2016 Ms. Ponce had her needle biopsies yesterday. Initially, she had some hemoptysis, although that became much improved by the evening yesterday and she only has trace hemoptysis today. She is still feeling short of breath and still has wheezing throughout. She has been complaining of pain from her Rand catheter, and now that she is out of the critical period and need for monitoring I will discontinue the catheter. She also complains of back pain, which however has been chronic for a very long time. Her vital signs show a maximum temperature (Tmax) of 98.8 with a heart rate that ranges between 94-90 in a sinus rhythm, respiratory rate of 30 with the use of her neck accessory muscles. Blood pressure is 170/82 to 146/65, and she is 95% saturated on 5 liters nasal cannula. Her intake and output for the past 24 hours has been recorded as 1555 in and 1230 out for a positivity of 325 mL. Weight today is 55.5 kg compared to 57.9 kg yesterday. On physical examination, her lungs show bilateral inspiratory and expiratory wheezing. The wheezing is particularly notable at mid and end expiration, however. Percussion note is full to the diaphragm inferiorly, but dull to percussion in the right upper hemithorax. Cardiac exam is without murmurs, clicks, gallops or rubs. I cannot feel her point of maximum impulse (PMI). S1, S2 are normal. Abdomen is soft, nontender. Bowel sounds are positive. Extremities show no pretibial edema, no calf tenderness. No differential swelling of the upper extremities. Skin is warm, dry and perfused without cyanosis or mottling, including that of the nail beds and knees. Neck is supple. There is no jugular venous distention. No subcutaneous emphysema. Trachea is midline. Mouth shows her mucous membranes to be pink and moist. Lips and commissures without lesions. There is no thrush. Eyes show her pupils to be equal and reactive. Extraocular motion intact. Sclerae anicteric. Neuro shows II-XII grossly intact along with gross motor and gross sensation intact. Gait is not tested. Psychiatric shows her to be awake and alert, but in some distress from her back pain and her Rand catheter. Her white count today is 14.5, which continues to climb. Hemoglobin and hematocrit of 9.2 and 28.3, consistent with hemodilution. Platelet count is 49, down from 60 yesterday after a platelet transfusion. Differential shows 95% neutrophils, 1% bands, 3% lymphocytes. There are no other immature forms and no toxic granulations or granulations reported today. Her chemistries show a sodium of 139 with a potassium of 3.4. BUN and creatinine are improving to 91 and 1.27 from 102 and 1.60 yesterday, and 105 and 2.03 on admission. Glucose is 213 with a calcium of 7.8. Magnesium is 3.8 with an albumin of 2.0. Her AST and ALT are 159 and 53, which continues to improve. Microbiology has returned from her sputum, which is growing Escherichia (E) coli and Streptococcus pneumoniae along with yeast organism. The bacteria are sensitive to everything. She is also growing Streptococcus pneumoniae from her blood in two blood cultures. She is growing E coli from her urine additionally. Chest x-ray shows the same right upper lobe consolidation. The remainder her lung ferrell look relatively clear with some cephalization of vessels again done portably sitting. Costophrenic angles are sharp. IMPRESSION: 1. Metabolic acidosis, improved with rehydration and treatment of underlying sepsis. 2. Sepsis, improving. 3. Renal insufficiency, improving. 4. Possible postobstructive pneumonia. 5. Urinary tract infection growing Escherichia coli. 6. Probable large mass, most likely malignant, pathology pending. 7. Chronic obstructive pulmonary disease. 8. Hypertension. 9. Anxiety. 10. Depression. 11. Bacteremia. PLAN AND DISCUSSION: As noted above, I will discontinue her Rand catheter. She is complaining of back pain, which is chronic. I will place her on [place]. She only has Tylenol suppository now. We will need to support her respiratory gonzalez. She is already on bronchodilators. She is oxygenating well. At this point in time, I am not too concerned over the wheezing. It is a chronic secondary to her underlying COPD. I am gratified that her hemoptysis has decreased.
[2016-07-28] MEDS: ATENOLOL 50 MG TAB PO SCH (08:54)
[2016-07-28] MEDS: amLODIPine 5 MG TAB PO SCH (08:55)
[2016-07-28] MEDS: SERTRALINE 100 MG TAB PO SCH ×2 (08:55→21:44)
[2016-07-28] MEDS: PANTOPRAZOLE 40MG INJ (PROTONIX) (C9113) IV SCH (08:56)
[2016-07-28] MEDS: guaiFENesin ER 600 MG TAB PO SCH ×2 (09:08→21:44)
[2016-07-28] MEDS: DOCUSATE SODIUM 100 MG CAP PO SCH ×2 (09:11→21:00)
[2016-07-28] MEDS: MOM 30ML SUSPENSION UDC PO SCH (09:12)
--- NOTE | 2016-07-28 09:22 | REP ---
Chest x-ray: Two views. History: Pneumonia. Comparison chest x-ray July 27, 2016. Findings: There is an area of slightly improved aeration along the anterior and medial aspect of the right upper lobe. A large area of opacification persists throughout most of the remainder of the right upper lobe. The inferior and pleural border of the consolidation has a persistently convex downward contour as before. Left lung remains clear. A right internal jugular line terminates in the expected location of the superior vena cava. EKG electrodes are seen. Impression: Persistent dense consolidation throughout most of the right upper lobe. Some improved aeration anteromedially. Signed by Shane Sumner MD 07/28/2016 11:31 A
[2016-07-28] MEDS: cefTRIAXone SOD 2 GM in D5W MINI-BAG PLUS 50 ML IV SCH (09:48)
[2016-07-28] MEDS ORDERED: amLODIPine 5 MG TAB PO ONE (10:00)
--- NOTE | 2016-07-28 10:12 | IPNPDOC ---
Date Seen The patient was seen on 07/28/16. Progress Note Overnight events: The patient did undergo bronchoscopy with suction of significant mucous, subsequently extubated. SUBJECTIVE: Patient is resting awake in bed on nasal cannula. The patient did tell me her name and that she is in the hospital she cannot tell me which hospital which city what the year is or who the president is and remains somewhat confused OBJECTIVE PHYSICAL EXAMINATION: VITAL SIGNS: Please see below. GENERAL: Frail elderly female laying in bed she continues to cough up copious amounts of sputum she is tachypnic. HEENT: Moist mucous membranes cranial nerves II through XII appear to be intact CARDIOVASCULAR: S1-S2 regular no additional heart sounds appreciated. RESPIRATORY: Scattered rales throughout both bilateral lower lobes diminished breath sounds in the right upper lobe. Transmitted upper airway sounds ABDOMINAL: Sounds present abdomen soft nontender EXTREMITIES: No clubbing cyanosis or edema NEUROLOGICAL: Spontaneously Moves all 4 extremities LABORATORY DATA: Please see below. MICROBIOLOGY: Please see below. IMAGING: CT chest:Diffuse consolidative opacity throughout the right upper lobe. Underlying empyema cannot be excluded without IV contrast. Multiple enlarged mediastinal lymph nodes are present. Chest x-ray from 07/28/2016:Persistent dense consolidation throughout most of the right upper lobe. Some improved aeration anteromedially. Liver ultrasound:Multiple adherent gallbladder calculi versus gallbladder polyps versus combination. Right renal cyst. Otherwise, negative abdominal right upper quadrant ultrasound. Renal ultrasound:1. Unremarkable ultrasound examination of the kidneys. 2. Urinary bladder is catheterized and contracted. 3. Splenomegaly. Echocardiogram:Mild concentric left ventricular hypertrophy with hyperkinetic wall motion. Left atrial size upper limits of normal with Doppler evidence of an impairment of LV diastolic function and significantly elevated mean left atrial pressure. At least borderline dilated right heart chambers with right ventricular hypokinesis and Doppler evidence of severe pulmonaryhypertension. Normal IVC size with only slightly reduced respiratory collapse suggestive of estimated central venous pressure of 10 mmHg. Aortic valvular sclerosis without stenosis or insufficiency (elevated peak systolic transvalvular gradient related to hyperkinetic flow). Mild mitral annular calcification without Doppler evidence of functional valvular DVT prophylaxis ordered?: Sequentials and teds no pharmacological agents secondary to thrombocytopenia ASSESSMENT AND PLAN: This is a 70-year-old female with respiratory failure and renal failure likely secondary to strep pneumoniae pneumonia and bacteremia. Respiratory: The patient appears to be stable at this time she still having difficulty clearing her secretions she is status post bronchoscopy. She is no longer requiring noninvasive mechanical ventilation. There is concern for an underlying mass beneath her densely consolidated right upper lobe pneumonia pathology is pending. Infectious disease: The patient was on vancomycin and Zosyn for 2 days however at this time at she has 2 out of 2 blood culture bottles positive for strep pneumoniae and sputum positive for strep pneumonia as well as well as sputum positive for Escherichia coli and urine positive for Escherichia coli all sensitive to ceftriaxone. today is day 5 of antibiotics. The patient does have central venous catheter in place although she never required pressor support Cardiovascular: The patient was only briefly hypotensive for a very short period since her presentation even in the emergency room. In fact at this time she is quite hypertensive. I will titrate up her Norvasc she has been restarted on atenolol I'll also start her on clonidine I'll discuss with Dr. Curry she may benefit from Lasix given her kidney function is improving and she was given significant IV fluids. She did have an equivocal troponin upon admission likely related to demand ischemia her echocardiogram is suggestive of cor pulmonale and severe pulmonary hypertension and diastolic dysfunction and some elevation in her central venous pressure. Post lung biopsy she was briefly in atrial fibrillation she did convert after 5 mg of IV Lopressor. Heme: Persistent leukocytosis secondary to sepsis, stable anemia likely dilutional and perhaps even a component of anemia of chronic disease she likely had some minor bleeding post lung biopsy she is having associated hemoptysis she did receive 1 dose of DDAVP. She has fairly chronic thrombocytopenia it was worsened secondary to sepsis at this time it appears to be improving with appropriate treatment she did receive 1 unit of platelets prior to her lung biopsy will continue monitor her platelet counts closely. She is not pharmacological DVT prophylaxis secondary to this Metabolic: Metabolic acidosis resolved. The patient's creatinine continues to return to baseline her BUN slowly follows she did receive 1 dose of IV Lasix she may benefit from further will discuss with nephrology. Alimentary: The patient is on GI prophylaxis she had been nothing by mouth while requiring noninvasive mechanical ventilation at this time she is having difficulty clearing secretions but tolerating sips of water we will attempt a bedside swallow and advance her diet as tolerated. The patient has an elevated AST which is now down trending I suspect was related to her acute renal failure. Neurologic: The patient appears to have metabolic encephalopathy related to sepsis and uremia she is oxygenating adequately at this time is maintaining appropriate hemodynamics. It is slowly improving today I suspect as her BUN improves and her sepsis begins to resolve over the next 24-48 hours I'm optimistic it will improve as well DISPOSITION: Her prognosis is improved today we'll continue to follow very closely VS, I&O, 24H, William Vital Signs/I&O Vital Signs Date Time Temp Pulse Resp B/P (MAP) Pulse Ox O2 Delivery O2 Flow Rate FiO2 07/28/16 09:00 65 94 07/28/16 08:00 26 Nasal Cannula 4.0 07/28/16 08:00 98.3 199/91 (127) 07/27/16 06:01 30 I&O- Last 24 Hours up to 6 AM 07/28/16 06:00 Intake Total 60 ml Output Total 450 ml Balance -390 ml Laboratory Data 24H LABS Laboratory Tests 2 07/27/16 11:35: Bedside Glucose (Misc Panel) 219H 07/27/16 17:52: Bedside Glucose (Misc Panel) 183H 07/28/16 00:11: Bedside Glucose (Misc Panel) 174H 07/28/16 05:13: Neutrophils 95H, Lymphocytes (Manual) 3L, Monocytes (Manual) 1, Nucleated Red Blood Cells 1H, Atypical Lymphocytes 1, Platelet Estimate DECREASED, Hypochromasia 1+, Anisocytosis 1+, Anion Gap 8, Glomerular Filtration Rate > 60.0, Blood Urea Nitrogen 86H, Creatinine 0.93, Sodium Level 145, Potassium Level 4.0, Chloride Level 112H, Carbon Dioxide Level 25, Calcium Level 8.7L, Phosphorus Level 3.2, Aspartate Amino Transf (AST/SGOT) 93H, Alanine Aminotransferase (ALT/SGPT) 51, Lactate Dehydrogenase 351H, Total Creatine Kinase 53, Alkaline Phosphatase 326H, Total Bilirubin 0.8, Triglycerides Level 123, Cholesterol Level 62, Total Protein 6.1L, Albumin 1.9L, Albumin/Globulin Ratio 0.45L CBC/BMP Laboratory Tests 07/28/16 05:13 Red Blood Count 3.49 L, Mean Corpuscular Volume 91.3, Mean Corpuscular Hemoglobin 28.6, Mean Corpuscular Hemoglobin Concent 31.4 L, Red Cell Distribution Width 15.1 H, Calcium Level 8.7 L, Phosphorus Level 3.2, Aspartate Amino Transf (AST/SGOT) 93 H, Alanine Aminotransferase (ALT/SGPT) 51, Lactate Dehydrogenase 351 H, Total Creatine Kinase 53, Alkaline Phosphatase 326 H, Total Bilirubin 0.8, Triglycerides Level 123, Cholesterol Level 62, Total Protein 6.1 L, Albumin 1.9 L Microbiology Microbiology 07/25/16 Blood Culture - Preliminary, Resulted No Growth after 48 hours. All Specime... 07/24/16 Blood Culture - Final, Complete Streptococcus Pneumoniae 07/24/16 Blood Culture - Final, Complete Streptococcus Pneumoniae 07/24/16 Gastrointestinal Tract Panel (PCR) - Final, Complete 07/24/16 Gram Stain - Final, Complete 07/24/16 Sputum Culture - Final, Complete Escherichia Coli Streptococcus Pneumoniae Yeast Like Organism 07/24/16 Gram Stain - Final, Complete 07/24/16 Sputum Culture - Final, Complete Escherichia Coli Streptococcus Pneumoniae 07/24/16 Urine Culture - Final, Complete Escherichia Coli NARCISO SALES MD Jul 28, 2016 10:12
[2016-07-28] MEDS: cloNIDine 0.1 MG TAB PO SCH (10:14)
[2016-07-28] MEDS ORDERED: FUROSEMIDE 40 MG/4 ML VIAL (J1940) IV ONE (11:00)
[2016-07-28] MEDS: IPRATROPIUM 0.5MG/ALBUTEROL 2.5MG INH SOL UD 3ML (DUONEB)(J7620) NEB PRN (11:10)
[2016-07-28] MEDS: ACETYLCYSTEINE 20% 4 ML VIAL (200MG/ML) INH SCH ×2 (11:10→20:14)
[2016-07-28] MEDS ORDERED: cloNIDine 0.1 MG TAB PO ONE (13:45)
--- NOTE | 2016-07-28 19:30 | IPN ---
DATE: 07/28/2016 Ms. Ponce is seen this morning on her bedside. She remains quite restless and agitated at times. She is being treated for right upper lobe pneumonia, acute renal failure and generalized weakness. Nursing staff reports that patient is thirsty and keeps asking for fluids frequently. She is currently not receiving IV fluid. She had acute renal failure on admission, which was felt to be related to dehydration and she did receive IV fluids, which has been stopped. On physical examination, temperature 98.5 degrees Fahrenheit, heart rate 60 per minute and respiratory rate 24 per minute. Blood pressure 182/82 mmHg and oxygen saturation 95% on 4 liters oxygen. Intake and output records from yesterday showed total output 1600, but input recorded only 30 mL, which is probably inaccurate. Her head is atraumatic. Neck veins are difficult to be assessed. A central line is present in the right neck. Oral mucosa is somewhat dry but she is currently using her nebulizer treatment. Heart sounds are distant. Lungs with diminished breath sounds on the right side. Few basilar crepitations are present bilaterally. Abdomen soft and nontender. Bowel sounds are present. Extremities have no cyanosis or clubbing. Neurologically, she is awake, quite restless and moving all her limbs. Today's laboratories show sodium 145, potassium 4.0, BUN 86 and creatinine 0.93. Glucose 170 and calcium 8.7. WBC is 13.1, hemoglobin 10.0 and hematocrit 31.9. PROBLEMS: 1. Acute renal failure superimposed on chronic kidney disease. The patient has significant improvement in her kidney function. At this point, we will continue to monitor and there is no indication for dialysis. 2. Hypoxemia. Mostly related to her acute pneumonia and chronic obstructive pulmonary disease (COPD). She probably has mild volume overload. She has already received a dose of Lasix and we discussed this morning. She remains on supplemental oxygen. 3. Hypokalemia. Potassium level has corrected and does not need any further potassium supplement at this point. 4. Pneumonia. The patient remains on ceftriaxone 2 grams every 24 hours. She is currently afebrile. 5. Hypertension. Blood pressure seems to be high today, which is probably related to her restlessness and agitation. I agree with increasing amlodipine dose. She is also on beta dari. I suggest to hold off on any standing dose of diuretic, angiotensin-converting enzyme (MERE) inhibitor or angiotensin receptor dari.
[2016-07-28] MEDS: ATORVASTATIN 20 MG TAB PO SCH (21:44)
[2016-07-29] VITALS (16 sets, daily range): BP systolic 142–217; BP diastolic 65–113
[2016-07-29] MEDS: IPRATROPIUM 0.5MG/ALBUTEROL 2.5MG INH SOL UD 3ML (DUONEB)(J7620) NEB SCH ×4 (01:27→20:03)
[2016-07-29 05:20] LABS: DIFF SLIDE NUMBER 26; MEAN CORPUSCULAR HEMOGLOBIN 27.8 pg (27.0-33.0); MEAN CORPUSCULAR HGB CONC 31.1 g/dl (32.0-36.5); MEAN CORPUSCULAR VOLUME 89.2 fl (80.0-96.0); RED CELL DISTRIBUTION WIDTH 15.2 % (11.5-14.5); WHITE BLOOD COUNT 12.6 K/mm3 (4.0-10.0)
[2016-07-29 05:21] LABS: PLATELET COUNT, AUTOMATED 65 k/mm3 (150-450)
[2016-07-29] MEDS: SODIUM CHLORIDE 0.9% INJ 10 ML SYR IV SCH ×3 (05:25→20:29)
[2016-07-29] MEDS: SLF 3 ML SYR IV SCH ×3 (05:25→20:29)
[2016-07-29 06:49] LABS: ALBUMIN 1.9 GM/DL (3.2-5.2); ALBUMIN/GLOBULIN RATIO 0.46 (1.00-1.93); ALKALINE PHOSPHATASE 398 U/L (45-117); ALT/SGPT 35 U/L (12-78); ANION GAP 11 MEQ/L (8-16); AST/SGOT 40 U/L (15-37); BILIRUBIN,TOTAL 0.8 MG/DL (0.2-1.0); BLOOD UREA NITROGEN 58 MG/DL (7-18); CALCIUM LEVEL 8.2 MG/DL (8.8-10.2); CARBON DIOXIDE LEVEL 25 MEQ/L (21-32); CHLORIDE LEVEL 104 MEQ/L (98-107); CREATININE FOR GFR 0.71 MG/DL (0.55-1.02); GLOMERULAR FILTRATION RATE > 60.0 (>39); GLUCOSE, FASTING 306 MG/DL (83-110); POTASSIUM SERUM 3.3 MEQ/L (3.5-5.1); SODIUM LEVEL 140 MEQ/L (136-145)
[2016-07-29 06:49] LABS: ANISOCYTOSIS 1+
[2016-07-29] MEDS: ACETYLCYSTEINE 20% 4 ML VIAL (200MG/ML) INH SCH ×2 (07:21→20:03)
[2016-07-29] MEDS: HumaLOG INSULIN (NovoLOG) PER UNIT SC SCH ×4 (07:30→20:20)
[2016-07-29 07:59] LABS: MAGNESIUM LEVEL 1.4 MG/DL (1.8-2.4)
[2016-07-29] MEDS ORDERED: POTASSIUM CHLORIDE 10 MEQ SR TABLET PO ONE (08:00)
[2016-07-29] MEDS: SERTRALINE 100 MG TAB PO SCH ×2 (08:03→20:22)
[2016-07-29] MEDS: guaiFENesin ER 600 MG TAB PO SCH ×2 (08:03→20:22)
[2016-07-29] MEDS: amLODIPine 10 MG TAB PO SCH (08:03)
[2016-07-29] MEDS: ATENOLOL 50 MG TAB PO SCH (08:04)
[2016-07-29] MEDS: DOCUSATE SODIUM 100 MG CAP PO SCH ×2 (08:04→20:22)
[2016-07-29] MEDS: cloNIDine 0.1 MG TAB PO SCH (08:04)
[2016-07-29] MEDS: PANTOPRAZOLE 40MG INJ (PROTONIX) (C9113) IV SCH (08:04)
[2016-07-29] MEDS: MOM 30ML SUSPENSION UDC PO SCH (08:05)
[2016-07-29] MEDS: cefTRIAXone SOD 2 GM in D5W MINI-BAG PLUS 50 ML IV SCH (10:23)
--- NOTE | 2016-07-29 11:10 | IPN ---
DATE: 07/29/2016 Ms. Ponce is seen this morning on her bedside. She is resting comfortably on her left side. She has no fever or chills. Nursing staff reports that she ate well and there is no history of vomiting or diarrhea. On physical examination, temperature 97.8 degrees Fahrenheit, heart rate 62 per minute and respiratory rate 20 per minute. Blood pressure 149/67 mmHg and oxygen saturation 100% on 2 liters oxygen. Intake and output records are incomplete. She has been incontinent. Neck veins are difficult to be assessed. She has a central line in her neck. Head is atraumatic and neck is supple. Heart sounds are regular. Lungs with diminished breath sounds on right side. Abdomen soft and nontender. Extremities without cyanosis or clubbing. Neurologically, she is awake and responds appropriately. Today's labs show sodium 140 and potassium 3.3. BUN is down to 58 and creatinine 0.71. Glucose 306 and calcium 8.2. PROBLEMS: 1. Acute renal failure. Kidney function continues to improve. She has almost normal kidney function now. At this point, she is not receiving any IV fluids or diuretics. I suggest to avoid diuretic for now. 2. Hypokalemia. The patient has already received one dose of oral potassium chloride 40 mEq which is appropriate. Electrolytes will be repeated again tomorrow. 3. Pneumonia. The patient remains on ceftriaxone 2 grams every 24 hours. She remains afebrile and seems to be improving. 4. Hypertension. Blood pressure control seems to have improved with current antihypertensive meds. All in all from renal standpoint, the patient is doing very well. I do not feel that she needs to be followed on a daily basis by the nephrology team. I am signing off her case. Please do not hesitate to call me should she need any further assistance.
--- NOTE | 2016-07-29 11:59 | IPNPDOC ---
Date Seen The patient was seen on 07/29/16. Progress Note SUBJECTIVE: Patient is resting awake in bed on nasal cannula. She denies any complaints at this time. OBJECTIVE PHYSICAL EXAMINATION: VITAL SIGNS: Please see below. GENERAL: Frail elderly female laying in bed she continues to cough up copious amounts of sputum. HEENT: Moist mucous membranes cranial nerves II through XII appear to be intact CARDIOVASCULAR: S1-S2 regular no additional heart sounds appreciated. RESPIRATORY: Scattered rales throughout both bilateral lower lobes diminished breath sounds in the right upper lobe. Transmitted upper airway sounds ABDOMINAL: Sounds present abdomen soft nontender EXTREMITIES: No clubbing cyanosis or edema NEUROLOGICAL: Spontaneously Moves all 4 extremities LABORATORY DATA: Please see below. MICROBIOLOGY: Please see below. IMAGING: CT chest:Diffuse consolidative opacity throughout the right upper lobe. Underlying empyema cannot be excluded without IV contrast. Multiple enlarged mediastinal lymph nodes are present. Chest x-ray from 07/28/2016:Persistent dense consolidation throughout most of the right upper lobe. Some improved aeration anteromedially. Liver ultrasound:Multiple adherent gallbladder calculi versus gallbladder polyps versus combination. Right renal cyst. Otherwise, negative abdominal right upper quadrant ultrasound. Renal ultrasound:1. Unremarkable ultrasound examination of the kidneys. 2. Urinary bladder is catheterized and contracted. 3. Splenomegaly. Echocardiogram:Mild concentric left ventricular hypertrophy with hyperkinetic wall motion. Left atrial size upper limits of normal with Doppler evidence of an impairment of LV diastolic function and significantly elevated mean left atrial pressure. At least borderline dilated right heart chambers with right ventricular hypokinesis and Doppler evidence of severe pulmonaryhypertension. Normal IVC size with only slightly reduced respiratory collapse suggestive of estimated central venous pressure of 10 mmHg. Aortic valvular sclerosis without stenosis or insufficiency (elevated peak systolic transvalvular gradient related to hyperkinetic flow). Mild mitral annular calcification without Doppler evidence of functional valvular DVT prophylaxis ordered?: Sequentials and teds no pharmacological agents secondary to thrombocytopenia ASSESSMENT AND PLAN: This is a 70-year-old female with respiratory failure and renal failure likely secondary to strep pneumoniae pneumonia and bacteremia. Respiratory: The patient appears to be stable at this time she still having difficulty clearing her secretions she is status post bronchoscopy. She is no longer requiring noninvasive mechanical ventilation. There is concern for an underlying mass beneath her densely consolidated right upper lobe pneumonia pathology is pending. Improving, at this time she is stable for downgrade to the PCU. Infectious disease: The patient was on vancomycin and Zosyn for 2 days however at this time at she has 2 out of 2 blood culture bottles positive for strep pneumoniae and sputum positive for strep pneumonia as well as well as sputum positive for Escherichia coli and urine positive for Escherichia coli all sensitive to ceftriaxone. today is day 6 of antibiotics. The patient does have central venous catheter in place although she never required pressor support. Appears to be slowly resolving Cardiovascular: The patient is hypertensive but well controlled with a new regimen. She did have an equivocal troponin upon admission likely related to demand ischemia her echocardiogram is suggestive of cor pulmonale and severe pulmonary hypertension and diastolic dysfunction and some elevation in her central venous pressure. Post lung biopsy she was briefly in atrial fibrillation she did convert after 5 mg of IV Lopressor. She should have outpatient stress testing. Heme:leukocytosis secondary to sepsis improving, stable anemia likely dilutional and perhaps even a component of anemia of chronic disease she likely had some minor bleeding post lung biopsy she is having associated hemoptysis she did receive 1 dose of DDAVP. She has fairly chronic thrombocytopenia it was worsened secondary to sepsis at this time it appears to be stabilized. she did receive 1 unit of platelets prior to her lung biopsy. She is not pharmacological DVT prophylaxis secondary to this Metabolic: Metabolic acidosis resolved. The patient's creatinine continues to return to baseline Alimentary: The patient is on GI prophylaxis, mech soft diet. Neurologic: The patient appears to have slowly resolving metabolic encephalopathy related to sepsis and uremia she is oxygenating adequately at this time is maintaining appropriate hemodynamics. DISPOSITION: Will transfer out of ICU to PCU and order PT eval. VS, I&O, [facility] Vital Signs/I&O Vital Signs Date Time Temp Pulse Resp B/P (MAP) Pulse Ox O2 Delivery O2 Flow Rate FiO2 07/29/16 10:00 63 20 149/67 (94) 100 Nasal Cannula 2.0 07/29/16 08:00 97.8 07/27/16 06:01 30 I&O- Last 24 Hours up to 6 AM 07/29/16 05:59 Intake Total 1790 ml Balance 1790 ml Laboratory Data 24H LABS Laboratory Tests 2 07/28/16 12:28: Bedside Glucose (Misc Panel) 215H 07/28/16 16:50: Bedside Glucose (Misc Panel) 330H 07/28/16 21:26: Bedside Glucose (Misc Panel) 303H 07/29/16 04:59: Anion Gap 11, Glomerular Filtration Rate > 60.0, Blood Urea Nitrogen 58H, Creatinine 0.71, Sodium Level 140, Potassium Level 3.3L, Chloride Level 104, Carbon Dioxide Level 25, Calcium Level 8.2L, Aspartate Amino Transf (AST/SGOT) 40H, Alanine Aminotransferase (ALT/SGPT) 35, Alkaline Phosphatase 398H, Total Bilirubin 0.8, Total Protein 6.0L, Albumin 1.9L, Magnesium Level 1.4L, Albumin/ Globulin Ratio 0.46L 07/29/16 05:03: Neutrophils 95H, Lymphocytes (Manual) 3L, Monocytes (Manual) 2, Platelet Estimate DECREASED, Anisocytosis 1+ CBC/BMP Laboratory Tests 07/29/16 04:59 Calcium Level 8.2 L, Aspartate Amino Transf (AST/SGOT) 40 H, Alanine Aminotransferase (ALT/SGPT) 35, Alkaline Phosphatase 398 H, Total Bilirubin 0.8 , Total Protein 6.0 L, Albumin 1.9 L 07/29/16 05:03 Red Blood Count 3.40 L, Mean Corpuscular Volume 89.2, Mean Corpuscular Hemoglobin 27.8, Mean Corpuscular Hemoglobin Concent 31.1 L, Red Cell Distribution Width 15.2 H Microbiology Microbiology 07/25/16 Blood Culture - Preliminary, Resulted No Growth after 72 hours. All specime... 07/24/16 Blood Culture - Final, Complete Streptococcus Pneumoniae 07/24/16 Blood Culture - Final, Complete Streptococcus Pneumoniae 07/24/16 Gastrointestinal Tract Panel (PCR) - Final, Complete 07/24/16 Gram Stain - Final, Complete 07/24/16 Sputum Culture - Final, Complete Escherichia Coli Streptococcus Pneumoniae Yeast Like Organism 07/24/16 Gram Stain - Final, Complete 07/24/16 Sputum Culture - Final, Complete Escherichia Coli Streptococcus Pneumoniae 07/24/16 Urine Culture - Final, Complete Escherichia Coli NARCISO SALES MD Jul 29, 2016 11:59
--- NOTE | 2016-07-29 14:00 | REP ---
PA and lateral chest: Comparisons are the PA and lateral chest of 07/28/[address] of 07/24/2016. There is a large right upper lobe mass with compression atelectasis of the right upper lobe between the mass and mediastinum. This is unchanged. There is a right IJ central venous catheter with the tip in the distal SVC in satisfactory location, unchanged. The left lung is clear. Cardiac size normal. The ashley, mediastinum, bony thorax are unchanged. No pneumothorax. Signed by Boy Kiser MD 07/29/2016 01:51 P
[2016-07-29] MEDS: ATORVASTATIN 20 MG TAB PO SCH (20:22)
[2016-07-29] MEDS: **hydrALAZINE** 50 MG TAB PO SCH (20:25)
[2016-07-30] VITALS (8 sets, daily range): BP systolic 125–161; BP diastolic 59–93; O2SAT 100
[2016-07-30] MEDS: IPRATROPIUM 0.5MG/ALBUTEROL 2.5MG INH SOL UD 3ML (DUONEB)(J7620) NEB SCH ×4 (01:28→19:40)
[2016-07-30] MEDS: SODIUM CHLORIDE 0.9% INJ 10 ML SYR IV SCH ×3 (05:56→21:10)
[2016-07-30] MEDS: SLF 3 ML SYR IV SCH ×3 (05:57→21:37)
[2016-07-30 06:33] LABS: ALBUMIN/GLOBULIN RATIO 0.51 (1.00-1.93); ALKALINE PHOSPHATASE 489 U/L (45-117); ALT/SGPT 30 U/L (12-78); ANION GAP 12 MEQ/L (8-16); AST/SGOT 29 U/L (15-37); BILIRUBIN,TOTAL 0.8 MG/DL (0.2-1.0); BLOOD UREA NITROGEN 46 MG/DL (7-18); CALCIUM LEVEL 7.5 MG/DL (8.8-10.2); CARBON DIOXIDE LEVEL 22 MEQ/L (21-32); CHLORIDE LEVEL 105 MEQ/L (98-107); CHOLESTEROL LEVEL 68 MG/DL (< 200); CREATININE FOR GFR 0.67 MG/DL (0.55-1.02); GLOMERULAR FILTRATION RATE > 60.0 (>39); GLUCOSE, FASTING 329 MG/DL (83-110); PHOSPHORUS LEVEL 3.1 MG/DL (2.5-4.9); POTASSIUM SERUM 4.1 MEQ/L (3.5-5.1); SODIUM LEVEL 139 MEQ/L (136-145); TOTAL PROTEIN 5.9 GM/DL (6.4-8.2); TRIGLYCERIDES LEVEL 128 MG/DL (<150)
[2016-07-30] MEDS: ACETYLCYSTEINE 20% 4 ML VIAL (200MG/ML) INH SCH ×2 (07:17→19:40)
[2016-07-30 07:40] LABS: DIFF SLIDE NUMBER 16; MEAN CORPUSCULAR HEMOGLOBIN 28.8 pg (27.0-33.0); MEAN CORPUSCULAR VOLUME 89.9 fl (80.0-96.0); WHITE BLOOD COUNT 8.9 K/mm3 (4.0-10.0)
[2016-07-30 08:00] LABS: PLATELET COUNT, AUTOMATED 64 k/mm3 (150-450)
[2016-07-30 08:13] LABS: ANISOCYTOSIS 1+
--- NOTE | 2016-07-30 08:53 | REP ---
Chest AP and lateral views, patient sitting: Comparison 07/29/2016. The large right upper lobe pleural-based mass is unchanged. The atelectasis of the upper lobe between the mass. The mediastinum is unchanged. Left lung remains clear. Cardiac size is normal. The right IJ central venous catheter remains in satisfactory position, unchanged. Impression: No interval change. Signed by Boy Kiser MD 07/30/2016 08:45 A
[2016-07-30] MEDS: HumaLOG INSULIN (NovoLOG) PER UNIT SC SCH ×4 (09:06→21:00)
[2016-07-30] MEDS: SERTRALINE 100 MG TAB PO SCH ×2 (09:06→21:09)
[2016-07-30] MEDS: PANTOPRAZOLE 40MG TAB (PROTONIX) PO SCH (09:06)
[2016-07-30] MEDS: guaiFENesin ER 600 MG TAB PO SCH ×2 (09:06→21:10)
[2016-07-30] MEDS: **hydrALAZINE** 50 MG TAB PO SCH ×2 (09:07→21:10)
[2016-07-30] MEDS: cloNIDine 0.1 MG TAB PO SCH (09:07)
[2016-07-30] MEDS: ATENOLOL 50 MG TAB PO SCH (09:07)
[2016-07-30] MEDS: amLODIPine 10 MG TAB PO SCH (09:08)
[2016-07-30] MEDS: DOCUSATE SODIUM 100 MG CAP PO SCH ×2 (09:12→21:00)
[2016-07-30] MEDS: MOM 30ML SUSPENSION UDC PO SCH (09:12)
[2016-07-30] MEDS: cefTRIAXone SOD 2 GM in D5W MINI-BAG PLUS 50 ML IV SCH (10:28)
--- NOTE | 2016-07-30 18:36 | IPNPDOC ---
Subjective Date Seen The patient was seen on 07/30/16. Subjective Chief Complaint/HPI The patient is a 70-year-old female admitted with a reason for visit of Pneumonia. Events since last encounter no acute events, con't cough and sob. improved, Denied cp,n,v, abd pain. tolerated diet Objective Physical Examination General Exam: Positive: Alert, Cooperative, Mild Distress, Other (frail) Eye Exam: Positive: PERRLA, EOMI Neck Exam: Positive: Supple Chest Exam: Positive: Rales, Diminished (RUL) Heart Exam: Positive: Rate Normal, Normal S1, Normal S2, Negative: Tachycardic Abdomen Exam: Positive: Normal bowel sounds, Soft, Negative: Tenderness Extremity Exam: Negative: Clubbing, Cyanosis, Edema Assessment /Plan Assessment 70-year-old female h/o copd on 2L o2 at home, Depression, HLD, smoking, neuropathy, low grade urothelial carcinoma of bladder, with respiratory failure and renal failure likely secondary to strep pneumoniae pneumonia and bacteremia. Problems (1) Pneumonia Status: Acute Response to Treatment: Improving Problem Text: Strep lobar pna, RUL Pathology appreciated. culture appreciated, currently on Rocephin for antibiotics lots of secretion (2) Sepsis Status: Resolved Problem Text: 2/2 to strep lobar pna, bp stable, culture appreciated, c/w antibiotics (3) Protein-calorie malnutrition, severe Status: Chronic Problem Text: oral encouraged, ensure (4) COPD (chronic obstructive pulmonary disease) Status: Chronic Problem Text: c/w med (5) Hyperlipidemia Status: Chronic Problem Text: statin (6) Hypertension Status: Chronic Problem Text: c/w med (7) Anxiety and depression Status: Chronic Problem Text: c.w meds (8) Peripheral neuropathy Status: Chronic Problem Text: c.w meds (9) Hemoptysis Status: Resolved (10) Physical deconditioning Status: Chronic Problem Text: pt (11) DMII (diabetes mellitus, type 2) Problem Text: c.w insulin f/u fs Plan/VTE VTE Prophylaxis Ordered?: Yes (teds scq given hemoptysis) Plan/Urinary Catheter Reason for insertion/continuin: Critical Pt monitoring Disposition pt and clinical improvment VS, I&O, 24H, Fishbone Vital Signs/I&O Vital Signs Date Time Temp Pulse Resp B/P (MAP) Pulse Ox O2 Delivery O2 Flow Rate FiO2 07/30/16 16:00 98.5 60 26 134/60 (84) 97 Nasal Cannula 2.0 07/27/16 06:01 30 I&O- Last 24 Hours up to 6 AM 07/30/16 06:00 Intake Total 1740 ml Balance 1740 ml Laboratory Data 24H LABS Laboratory Tests 2 07/29/16 20:18: Bedside Glucose (Misc Panel) 52L 07/29/16 21:13: Bedside Glucose (Misc Panel) 183H 07/30/16 05:55: Neutrophils 89H, Lymphocytes (Manual) 8L, Monocytes (Manual) 1, Metamyelocytes 1H, Atypical Lymphocytes 1, Platelet Estimate DECREASED, Anisocytosis 1+, Anion Gap 12, Glomerular Filtration Rate > 60.0, Blood Urea Nitrogen 46H, Creatinine 0.67, Sodium Level 139, Potassium Level 4.1#, Chloride Level 105, Carbon Dioxide Level 22, Calcium Level 7.5L, Phosphorus Level 3.1, Aspartate Amino Transf (AST/SGOT) 29, Alanine Aminotransferase (ALT/SGPT) 30, Lactate Dehydrogenase 237, Total Creatine Kinase 31, Alkaline Phosphatase 489H, Total Bilirubin 0.8, Triglycerides Level 128, Cholesterol Level 68, Total Protein 5.9L , Albumin 2.0L, Albumin/Globulin Ratio 0.51L 07/30/16 11:34: Bedside Glucose (Misc Panel) 463H 07/30/16 16:41: Bedside Glucose (Misc Panel) 267H CBC/BMP Laboratory Tests 07/30/16 05:55 Red Blood Count 3.27 L, Mean Corpuscular Volume 89.9, Mean Corpuscular Hemoglobin 28.8, Mean Corpuscular Hemoglobin Concent 32.0, Red Cell Distribution Width 15.0 H, Calcium Level 7.5 L, Phosphorus Level 3.1, Aspartate Amino Transf (AST/SGOT) 29, Alanine Aminotransferase (ALT/SGPT) 30, Lactate Dehydrogenase 237, Total Creatine Kinase 31, Alkaline Phosphatase 489 H, Total Bilirubin 0.8, Triglycerides Level 128, Cholesterol Level 68, Total Protein 5.9 L, Albumin 2.0 L Microbiology Microbiology 07/25/16 Blood Culture - Final, Complete NO GROWTH AFTER 5 DAYS 07/24/16 Blood Culture - Final, Complete Streptococcus Pneumoniae 07/24/16 Blood Culture - Final, Complete Streptococcus Pneumoniae 07/30/16 Gastrointestinal Tract Panel (PCR) - Final, Complete 07/24/16 Gastrointestinal Tract Panel (PCR) - Final, Complete 07/24/16 Gram Stain - Final, Complete 07/24/16 Sputum Culture - Final, Complete Escherichia Coli Streptococcus Pneumoniae Yeast Like Organism 07/24/16 Gram Stain - Final, Complete 07/24/16 Sputum Culture - Final, Complete Escherichia Coli Streptococcus Pneumoniae 07/24/16 Urine Culture - Final, Complete Escherichia Coli SAAD FRIED MD Jul 30, 2016 18:36
[2016-07-30] MEDS: ATORVASTATIN 20 MG TAB PO SCH (21:09)
[2016-07-31 00:25] VITALS: BP 158/70
[2016-07-31] MEDS: IPRATROPIUM 0.5MG/ALBUTEROL 2.5MG INH SOL UD 3ML (DUONEB)(J7620) NEB SCH ×4 (02:00→19:46)
[2016-07-31] MEDS: SODIUM CHLORIDE 0.9% INJ 10 ML SYR IV SCH ×3 (05:40→22:00)
[2016-07-31] MEDS: SLF 3 ML SYR IV SCH (05:40)
[2016-07-31 05:50] LABS: MEAN CORPUSCULAR HEMOGLOBIN 28.3 pg (27.0-33.0); MEAN CORPUSCULAR VOLUME 91.4 fl (80.0-96.0); WHITE BLOOD COUNT 11.6 K/mm3 (4.0-10.0)
[2016-07-31 06:00] VITALS: BP 153/71
[2016-07-31 06:12] LABS: ALBUMIN/GLOBULIN RATIO 0.51 (1.00-1.93); ALKALINE PHOSPHATASE 406 U/L (45-117); ALT/SGPT 28 U/L (12-78); ANION GAP 11 MEQ/L (8-16); AST/SGOT 24 U/L (15-37); BILIRUBIN,TOTAL 0.7 MG/DL (0.2-1.0); BLOOD UREA NITROGEN 39 MG/DL (7-18); CARBON DIOXIDE LEVEL 23 MEQ/L (21-32); CHLORIDE LEVEL 106 MEQ/L (98-107); CHOLESTEROL LEVEL 65 MG/DL (< 200); CREATININE FOR GFR 0.62 MG/DL (0.55-1.02); GLOMERULAR FILTRATION RATE > 60.0 (>39); GLUCOSE, FASTING 307 MG/DL (83-110); MAGNESIUM LEVEL 1.3 MG/DL (1.8-2.4); PHOSPHORUS LEVEL 3.6 MG/DL (2.5-4.9); SODIUM LEVEL 140 MEQ/L (136-145); TOTAL PROTEIN 5.9 GM/DL (6.4-8.2); TRIGLYCERIDES LEVEL 125 MG/DL (<150)
[2016-07-31] MEDS: MAG SULF 1GM/100ML (MAG RUN) 1 GM in APPROPRIATE DILUENT 1 EA IV SCH ×2 (07:59→09:29)
[2016-07-31] MEDS: SERTRALINE 100 MG TAB PO SCH ×2 (08:00→20:40)
[2016-07-31] MEDS: amLODIPine 10 MG TAB PO SCH (08:00)
[2016-07-31] MEDS: guaiFENesin ER 600 MG TAB PO SCH ×2 (08:00→20:40)
[2016-07-31] MEDS: PANTOPRAZOLE 40MG TAB (PROTONIX) PO SCH (08:00)
[2016-07-31] MEDS: MOM 30ML SUSPENSION UDC PO SCH (08:00)
[2016-07-31] MEDS: HumaLOG INSULIN (NovoLOG) PER UNIT SC SCH ×4 (08:00→20:40)
[2016-07-31] MEDS: cloNIDine 0.1 MG TAB PO SCH (08:01)
[2016-07-31] MEDS: ATENOLOL 50 MG TAB PO SCH (08:01)
[2016-07-31] MEDS: DOCUSATE SODIUM 100 MG CAP PO SCH ×2 (08:01→20:40)
[2016-07-31] MEDS: ACETYLCYSTEINE 20% 4 ML VIAL (200MG/ML) INH SCH (08:14)
[2016-07-31] MEDS: **hydrALAZINE** 50 MG TAB PO SCH ×3 (09:29→20:40)
[2016-07-31] MEDS: cefTRIAXone SOD 2 GM in D5W MINI-BAG PLUS 50 ML IV SCH (09:30)
[2016-07-31 09:39] VITALS: BP 106/60
[2016-07-31 10:11] LABS: ABG BASE EXCESS -0.2 (-2.0-2.0); ABG HCO3 23.1 MEQ/L (22.0-26.0); ABG PARTIAL PRESSURE CO2 32.5 mmHg (35.0-45.0); ABG PARTIAL PRESSURE O2 80.9 mmHg (75.0-100.0); ABG STANDARD HCO3 24.3 MEQ/L (22.0-26.0); ABG TOTAL CO2 24.1 MEQ/L (23.0-31.0)
[2016-07-31 14:00] VITALS: BP 132/62
--- NOTE | 2016-07-31 14:10 | IPNPDOC ---
Subjective Date Seen The patient was seen on 07/31/16. Subjective Chief Complaint/HPI The patient is a 70-year-old female admitted with a reason for visit of Pneumonia. Events since last encounter no acute events overnight. continued to have cough with productive of brown sputum. reported low energy and poor appetite. Denied CP/ n/v/f/c. General: Reports: Malaise, Denies: Chills Constitutional: Denies: Chills, Fever Eyes: Denies: Vision change ENT: Denies: Dysphagia Skin: Denies: Rash, Lesions Pulmonary: Reports: Dyspnea, Cough Cardiovascular: Denies: Chest Pain, Palpitations, Orthopnea, Lt Headedness Gastrointestinal: Denies: Nausea, Vomiting, Abdominal Pain, Diarrhea, Constipation Musculoskeletal: Denies: Neck Pain, Back Pain Objective Physical Examination General Exam: Positive: Alert, Cooperative, Mild Distress, Other (frail) Eye Exam: Positive: PERRLA, EOMI Neck Exam: Positive: Supple, Negative: JVD Chest Exam: Positive: Rales, Diminished (RUL) Heart Exam: Positive: Rate Normal, Normal S1, Normal S2, Negative: Tachycardic Abdomen Exam: Positive: Normal bowel sounds, Soft, Negative: Tenderness Extremity Exam: Negative: Clubbing, Cyanosis, Edema Assessment /Plan Assessment 70-year-old female h/o copd on 2L o2 at home, Depression, HLD, smoking, neuropathy, low grade urothelial carcinoma of bladder, with respiratory failure and renal failure likely secondary to strep pneumoniae pneumonia and bacteremia. Problems (1) Pneumonia Status: Acute Response to Treatment: Improving Problem Text: Strep lobar pna, RUL Pathology appreciated. culture appreciated, currently on Rocephin for antibiotics lots of secretion (2) Sepsis Status: Resolved Problem Text: 2/2 to strep lobar pna, bp stable, culture appreciated, c/w antibiotics, IVF initially give. Initially required ICU stay TLC need to be discontinued tomorrow (3) Protein-calorie malnutrition, severe Status: Chronic Problem Text: oral encouraged, ensure (4) COPD (chronic obstructive pulmonary disease) Status: Chronic Problem Text: c/w med (5) Hyperlipidemia Status: Chronic Problem Text: statin (6) Hypertension Status: Chronic Problem Text: c/w med (7) Anxiety and depression Status: Chronic Problem Text: c.w meds (8) Peripheral neuropathy Status: Chronic Problem Text: c.w meds (9) Hemoptysis Status: Resolved Problem Text: hold anticoagulation (10) Physical deconditioning Status: Chronic Problem Text: pt (11) DMII (diabetes mellitus, type 2) Problem Text: c.w insulin f/u fs Plan/VTE VTE Prophylaxis Ordered?: Yes (teds scq given hemoptysis) Plan/Urinary Catheter Reason for insertion/continuin: Critical Pt monitoring Disposition pending clinical improvement, PT, potential placement VS, I&O, 24H, Fishbone Vital Signs/I&O Vital Signs Date Time Temp Pulse Resp B/P (MAP) Pulse Ox O2 Delivery O2 Flow Rate FiO2 07/31/16 09:50 106/56 07/31/16 09:39 97.5 60 24 93 Nasal Cannula 2.0 07/27/16 06:01 30 I&O- Last 24 Hours up to 6 AM 07/31/16 06:00 Intake Total 1860 ml Output Total 0 ml Balance 1860 ml Laboratory Data 24H LABS Laboratory Tests 2 07/30/16 16:41: Bedside Glucose (Misc Panel) 267H 07/30/16 17:43: Bedside Glucose (Misc Panel) 322H 07/30/16 20:43: Bedside Glucose (Misc Panel) 169H 07/31/16 05:09: Bedside Glucose (Misc Panel) 342H 07/31/16 05:35: Anion Gap 11, Glomerular Filtration Rate > 60.0, Blood Urea Nitrogen 39H, Creatinine 0.62, Sodium Level 140, Potassium Level 4.0, Chloride Level 106, Carbon Dioxide Level 23, Calcium Level 8.0L, Phosphorus Level 3.6, Aspartate Amino Transf (AST/SGOT) 24, Alanine Aminotransferase (ALT/SGPT) 28, Lactate Dehydrogenase 223, Total Creatine Kinase 29, Alkaline Phosphatase 406H, Total Bilirubin 0.7, Triglycerides Level 125, Cholesterol Level 65, Total Protein 5.9L , Albumin 2.0L, Magnesium Level 1.3L, C-Reactive Protein, Quantitative 7.14H, Albumin/Globulin Ratio 0.51L 07/31/16 09:59: Blood Gas Bicarbonate Standard 24.3, Arterial Blood pH 7.470H, Arterial Blood Partial Pressure CO2 32.5L, Arterial Blood Partial Pressure O2 80.9, Arterial Blood Total CO2 24.1, Arterial Blood HCO3 23.1, Arterial Blood Base Excess -0.2 , Arterial Blood Oxygen Saturation 94.8L CBC/BMP Laboratory Tests 07/31/16 05:35 Red Blood Count 3.16 L, Mean Corpuscular Volume 91.4, Mean Corpuscular Hemoglobin 28.3, Mean Corpuscular Hemoglobin Concent 31.0 L, Red Cell Distribution Width 15.0 H, Calcium Level 8.0 L, Phosphorus Level 3.6, Aspartate Amino Transf (AST/SGOT) 24, Alanine Aminotransferase (ALT/SGPT) 28, Lactate Dehydrogenase 223, Total Creatine Kinase 29, Alkaline Phosphatase 406 H, Total Bilirubin 0.7, Triglycerides Level 125, Cholesterol Level 65, Total Protein 5.9 L, Albumin 2.0 L Microbiology Microbiology 07/25/16 Blood Culture - Final, Complete NO GROWTH AFTER 5 DAYS 07/24/16 Blood Culture - Final, Complete Streptococcus Pneumoniae 07/24/16 Blood Culture - Final, Complete Streptococcus Pneumoniae 07/30/16 Gastrointestinal Tract Panel (PCR) - Final, Complete 07/24/16 Gastrointestinal Tract Panel (PCR) - Final, Complete 07/24/16 Gram Stain - Final, Complete 07/24/16 Sputum Culture - Final, Complete Escherichia Coli Streptococcus Pneumoniae Yeast Like Organism 07/24/16 Gram Stain - Final, Complete 07/24/16 Sputum Culture - Final, Complete Escherichia Coli Streptococcus Pneumoniae 07/24/16 Urine Culture - Final, Complete Escherichia Coli SAAD FRIED MD Jul 31, 2016 14:10
--- NOTE | 2016-07-31 16:45 | REP ---
REASON: Altered mental status. COMPARISON: None. TECHNIQUE: 4.5 mm contiguous transaxial sections were obtained from the skull base to the cerebral convexities with thin cuts through the posterior fossa without the administration of intravenous contrast. FINDINGS: The ventricles and sulci are consistent with the patient's age. There are no extra-axial fluid collections. There is no mass effect. The deep cerebral white matter is consistent with the patient's age. The orbital and petrous structures, cerebellopontine angles, and posterior fossa are unremarkable. The sella turcica, cavernous, and paracavernous structures are essentially unremarkable. The visualized portions of the paranasal sinuses and mastoid air cells are clear. Images of the skull base show no gross abnormality. IMPRESSION: Essentially unremarkable CT examination of the brain. Signed by Dereck Biggs DO 08/01/2016 12:04 P
[2016-07-31 18:00] VITALS: BP 139/65
[2016-07-31] MEDS: ATORVASTATIN 20 MG TAB PO SCH (20:40)
[2016-07-31 22:00] VITALS: BP 162/70
[2016-08-01] MEDS: IPRATROPIUM 0.5MG/ALBUTEROL 2.5MG INH SOL UD 3ML (DUONEB)(J7620) NEB SCH ×4 (01:28→20:00)
[2016-08-01 02:00] VITALS: BP 159/71
[2016-08-01] MEDS ORDERED: SODIUM CHLORIDE 0.9% INJ 10 ML SYR IV PRN ×2 (04:45→17:30)
[2016-08-01] MEDS: SODIUM CHLORIDE 0.9% INJ 10 ML SYR IV SCH ×5 (05:04→18:00)
[2016-08-01 06:00] VITALS: BP 158/73
[2016-08-01 06:41] LABS: MEAN CORPUSCULAR HEMOGLOBIN 28.9 pg (27.0-33.0); MEAN CORPUSCULAR HGB CONC 31.9 g/dl (32.0-36.5); MEAN CORPUSCULAR VOLUME 90.6 fl (80.0-96.0); RED CELL DISTRIBUTION WIDTH 15.6 % (11.5-14.5); WHITE BLOOD COUNT 12.5 K/mm3 (4.0-10.0)
[2016-08-01 07:04] LABS: ALBUMIN 1.9 GM/DL (3.2-5.2); ALBUMIN/GLOBULIN RATIO 0.41 (1.00-1.93); ALKALINE PHOSPHATASE 517 U/L (45-117); ALT/SGPT 28 U/L (12-78); ANION GAP 11 MEQ/L (8-16); AST/SGOT 26 U/L (15-37); BILIRUBIN,TOTAL 0.6 MG/DL (0.2-1.0); BLOOD UREA NITROGEN 31 MG/DL (7-18); CARBON DIOXIDE LEVEL 23 MEQ/L (21-32); CHLORIDE LEVEL 103 MEQ/L (98-107); CHOLESTEROL LEVEL 69 MG/DL (< 200); CREATININE FOR GFR 0.65 MG/DL (0.55-1.02); GLOMERULAR FILTRATION RATE > 60.0 (>39); GLUCOSE, FASTING 346 MG/DL (83-110); MAGNESIUM LEVEL 1.8 MG/DL (1.8-2.4); POTASSIUM SERUM 4.2 MEQ/L (3.5-5.1); SODIUM LEVEL 137 MEQ/L (136-145); TOTAL PROTEIN 6.5 GM/DL (6.4-8.2); TRIGLYCERIDES LEVEL 125 MG/DL (<150)
[2016-08-01] MEDS: guaiFENesin ER 600 MG TAB PO SCH ×2 (08:39→21:38)
[2016-08-01] MEDS: SERTRALINE 100 MG TAB PO SCH ×2 (08:39→21:38)
[2016-08-01] MEDS: **hydrALAZINE** 50 MG TAB PO SCH ×2 (08:39→21:37)
[2016-08-01] MEDS: amLODIPine 10 MG TAB PO SCH (08:40)
[2016-08-01] MEDS: PANTOPRAZOLE 40MG TAB (PROTONIX) PO SCH (08:40)
[2016-08-01] MEDS: DOCUSATE SODIUM 100 MG CAP PO SCH ×2 (08:40→21:38)
[2016-08-01] MEDS: MOM 30ML SUSPENSION UDC PO SCH (08:40)
[2016-08-01] MEDS: ATENOLOL 50 MG TAB PO SCH (08:41)
[2016-08-01] MEDS: cloNIDine 0.1 MG TAB PO SCH (08:41)
[2016-08-01] MEDS: HumaLOG INSULIN (NovoLOG) PER UNIT SC SCH ×4 (08:42→21:00)
[2016-08-01] MEDS: cefTRIAXone SOD 2 GM in D5W MINI-BAG PLUS 50 ML IV SCH (09:17)
[2016-08-01 10:00] VITALS: BP 140/58
[2016-08-01 14:00] VITALS: BP 151/69
--- NOTE | 2016-08-01 17:05 | REP ---
CHEST, TWO VIEWS: Two views of the chest are performed and compared to prior studies most recent of which is 07/30/2016. There appears to be mild gradual improvement of right upper lobe consolidation. Left lung remains clear. The heart is normal in size. There is calcification and tortuosity over the thoracic aorta. Right jugular line is seen with the tip in the superior vena cava. Right arm PICC line is seen with the tip in the superior vena cava. Signed by Boy Barrios MD 08/01/2016 05:17 P
--- NOTE | 2016-08-01 17:07 | IPNPDOC ---
Subjective Date Seen The patient was seen on 08/01/16. Subjective Chief Complaint/HPI The patient is a 70-year-old female admitted with a reason for visit of Pneumonia. Events since last encounter no acute events, strength improved. Denied CP, abd pain, sob, n/v/diarrhea. con' t cough productive of brown sputum General: Denies: Chills Constitutional: Denies: Chills, Fever ENT: Denies: Head Aches Pulmonary: Reports: Dyspnea, Cough Cardiovascular: Denies: Chest Pain, Palpitations Gastrointestinal: Denies: Nausea, Vomiting, Abdominal Pain Objective Physical Examination General Exam: Positive: Alert, Cooperative, Mild Distress, Other (frail) Eye Exam: Positive: PERRLA, EOMI Neck Exam: Positive: Supple, Negative: JVD Chest Exam: Positive: Rales, Diminished (RUL) Heart Exam: Positive: Rate Normal, Normal S1, Normal S2, Negative: Tachycardic Abdomen Exam: Positive: Normal bowel sounds, Soft, Negative: Tenderness Extremity Exam: Negative: Clubbing, Cyanosis, Edema Assessment /Plan Assessment 70-year-old female h/o copd on 2L o2 at home, Depression, HLD, smoking, neuropathy, low grade urothelial carcinoma of bladder, with respiratory failure and renal failure likely secondary to strep pneumoniae pneumonia and bacteremia Problems (1) Pneumonia Status: Acute Response to Treatment: Improving Problem Text: Strep lobar pna, RUL Pathology appreciated. culture appreciated, currently on Rocephin for antibiotics lots of secretion (2) Sepsis Status: Resolved Problem Text: 2/2 to strep lobar pna, bp stable, culture appreciated, c/w antibiotics, IVF initially give. Initially required ICU stay TLC need to be discontinued, picc line ordered (3) Protein-calorie malnutrition, severe Status: Chronic Problem Text: oral encouraged, ensure (4) COPD (chronic obstructive pulmonary disease) Status: Chronic Problem Text: c/w med (5) Hyperlipidemia Status: Chronic Problem Text: statin (6) Hypertension Status: Chronic Problem Text: c/w med (7) Anxiety and depression Status: Chronic Problem Text: c.w meds (8) Peripheral neuropathy Status: Chronic Problem Text: c.w meds (9) Hemoptysis Status: Resolved Problem Text: hold anticoagulation (10) Physical deconditioning Status: Chronic Problem Text: pt, may need STR (11) DMII (diabetes mellitus, type 2) Problem Text: c.w insulin, adjusted for hyperglycemia f/u fs Plan/VTE VTE Prophylaxis Ordered?: Yes (teds scq given hemoptysis) Plan/Urinary Catheter Reason for insertion/continuin: Critical Pt monitoring Disposition Pending PT, clinical improvement, possible str VS, I&O, 24H, Fishbone Vital Signs/I&O Vital Signs Date Time Temp Pulse Resp B/P (MAP) Pulse Ox O2 Delivery O2 Flow Rate FiO2 08/01/16 14:00 98.0 56 20 151/69 (96) 96 08/01/16 10:00 Room Air 08/01/16 08:15 0.0 07/27/16 06:01 30 I&O- Last 24 Hours up to 6 AM 08/01/16 05:59 Intake Total 1550 ml Output Total 0 ml Balance 1550 ml Laboratory Data 24H LABS Laboratory Tests 2 07/31/16 20:01: Bedside Glucose (Misc Panel) 254H 08/01/16 06:22: Anion Gap 11, Glomerular Filtration Rate > 60.0, Blood Urea Nitrogen 31H, Creatinine 0.65, Sodium Level 137, Potassium Level 4.2, Chloride Level 103, Carbon Dioxide Level 23, Calcium Level 8.0L, Phosphorus Level 3.0, Aspartate Amino Transf (AST/SGOT) 26, Alanine Aminotransferase (ALT/SGPT) 28, Lactate Dehydrogenase 211, Total Creatine Kinase 26, Alkaline Phosphatase 517H, Total Bilirubin 0.6, Triglycerides Level 125, Cholesterol Level 69, Total Protein 6.5 , Albumin 1.9L, Magnesium Level 1.8, C-Reactive Protein, Quantitative 7.41H, Albumin/Globulin Ratio 0.41L 08/01/16 12:12: Bedside Glucose (Misc Panel) 276H CBC/BMP Laboratory Tests 08/01/16 06:22 Red Blood Count 3.12 L, Mean Corpuscular Volume 90.6, Mean Corpuscular Hemoglobin 28.9, Mean Corpuscular Hemoglobin Concent 31.9 L, Red Cell Distribution Width 15.6 H, Calcium Level 8.0 L, Phosphorus Level 3.0, Aspartate Amino Transf (AST/SGOT) 26, Alanine Aminotransferase (ALT/SGPT) 28, Lactate Dehydrogenase 211, Total Creatine Kinase 26, Alkaline Phosphatase 517 H, Total Bilirubin 0.6, Triglycerides Level 125, Cholesterol Level 69, Total Protein 6.5 , Albumin 1.9 L Microbiology Microbiology 07/25/16 Blood Culture - Final, Complete NO GROWTH AFTER 5 DAYS 07/24/16 Blood Culture - Final, Complete Streptococcus Pneumoniae 07/24/16 Blood Culture - Final, Complete Streptococcus Pneumoniae 07/30/16 Gastrointestinal Tract Panel (PCR) - Final, Complete 07/24/16 Gastrointestinal Tract Panel (PCR) - Final, Complete 07/24/16 Gram Stain - Final, Complete 07/24/16 Sputum Culture - Final, Complete Escherichia Coli Streptococcus Pneumoniae Yeast Like Organism 07/24/16 Gram Stain - Final, Complete 07/24/16 Sputum Culture - Final, Complete Escherichia Coli Streptococcus Pneumoniae 07/24/16 Urine Culture - Final, Complete Escherichia Coli SAAD FRIED MD Aug 01, 2016 17:07
[2016-08-01] MEDS: ATORVASTATIN 20 MG TAB PO SCH (21:38)
[2016-08-01] MEDS: NORCO, ANEXSIA 5/325MG TABLET (HYDROcodone/ACETAMINOPHEN) PO PRN (21:43)
[2016-08-01 22:00] VITALS: BP 152/70
[2016-08-02] MEDS: IPRATROPIUM 0.5MG/ALBUTEROL 2.5MG INH SOL UD 3ML (DUONEB)(J7620) NEB SCH ×4 (00:45→18:59)
[2016-08-02 02:00] VITALS: BP 115/30
[2016-08-02 06:00] VITALS: BP 108/33
[2016-08-02 06:08] LABS: MEAN CORPUSCULAR HEMOGLOBIN 28.7 pg (27.0-33.0); MEAN CORPUSCULAR VOLUME 92.8 fl (80.0-96.0); RED CELL DISTRIBUTION WIDTH 15.8 % (11.5-14.5)
[2016-08-02] MEDS: SODIUM CHLORIDE 0.9% INJ 10 ML SYR IV SCH ×2 (06:14→19:02)
[2016-08-02 06:24] LABS: ALBUMIN 1.8 GM/DL (3.2-5.2); ALBUMIN/GLOBULIN RATIO 0.37 (1.00-1.93); ALKALINE PHOSPHATASE 462 U/L (45-117); ALT/SGPT 24 U/L (12-78); ANION GAP 11 MEQ/L (8-16); AST/SGOT 22 U/L (15-37); BILIRUBIN,TOTAL 0.5 MG/DL (0.2-1.0); BLOOD UREA NITROGEN 30 MG/DL (7-18); CALCIUM LEVEL 8.2 MG/DL (8.8-10.2); CARBON DIOXIDE LEVEL 20 MEQ/L (21-32); CHLORIDE LEVEL 103 MEQ/L (98-107); CHOLESTEROL LEVEL 71 MG/DL (< 200); CREATININE FOR GFR 0.69 MG/DL (0.55-1.02); GLOMERULAR FILTRATION RATE > 60.0 (>39); GLUCOSE, FASTING 321 MG/DL (83-110); MAGNESIUM LEVEL 1.9 MG/DL (1.8-2.4); PHOSPHORUS LEVEL 3.3 MG/DL (2.5-4.9); POTASSIUM SERUM 4.5 MEQ/L (3.5-5.1); SODIUM LEVEL 134 MEQ/L (136-145); TOTAL PROTEIN 6.7 GM/DL (6.4-8.2); TRIGLYCERIDES LEVEL 129 MG/DL (<150)
[2016-08-02] MEDS: HumaLOG INSULIN (NovoLOG) PER UNIT SC SCH ×4 (07:54→21:00)
--- NOTE | 2016-08-02 08:32 | REP ---
PA and lateral chest: Comparison 08/01/2016. There is a large pleural-based right upper lobe mass, not significantly changed. There appears to be a right upper lobe infiltrate adjacent to the mass, unchanged. Right lower lobe is clear. Left lung is clear. Cardiac size is normal. There is a right subclavian central venous catheter with the tip at the junction of the SVC and right atrium, unchanged. Impression: No interval change. Signed by Boy Kiser MD 08/02/2016 08:23 A
[2016-08-02] MEDS: PANTOPRAZOLE 40MG TAB (PROTONIX) PO SCH (08:33)
[2016-08-02] MEDS: DOCUSATE SODIUM 100 MG CAP PO SCH (08:33)
[2016-08-02] MEDS: amLODIPine 10 MG TAB PO SCH (08:34)
[2016-08-02] MEDS: SERTRALINE 100 MG TAB PO SCH ×2 (08:34→21:22)
[2016-08-02] MEDS: ATENOLOL 50 MG TAB PO SCH (08:35)
[2016-08-02] MEDS: guaiFENesin ER 600 MG TAB PO SCH ×2 (08:35→21:22)
[2016-08-02] MEDS: **hydrALAZINE** 50 MG TAB PO SCH ×2 (08:37→21:22)
[2016-08-02] MEDS: cloNIDine 0.1 MG TAB PO SCH (08:37)
[2016-08-02] MEDS: MOM 30ML SUSPENSION UDC PO SCH (09:00)
[2016-08-02] MEDS: cefTRIAXone SOD 2 GM in D5W MINI-BAG PLUS 50 ML IV SCH (09:44)
[2016-08-02 10:00] VITALS: BP 133/64
--- NOTE | 2016-08-02 12:38 | IPNPDOC ---
Subjective Date Seen The patient was seen on 08/02/16. Subjective Chief Complaint/HPI The patient is a 70-year-old female admitted with a reason for visit of Pneumonia. Events since last encounter no acute events overnight. Reported cough improved, productive of brown sputum. Denied cp/abd pain/ n/v/f/c Constitutional: Denies: Chills, Fever Eyes: Denies: Pain ENT: Denies: Head Aches, Ear Pain Pulmonary: Reports: Dyspnea, Cough Cardiovascular: Denies: Chest Pain, Palpitations Gastrointestinal: Denies: Nausea, Vomiting, Abdominal Pain, Diarrhea, Constipation Genitourinary: Denies: Dysuria, Frequency, Incontinence Objective Physical Examination General Exam: Positive: Alert, Cooperative, Mild Distress, Other (frail) Eye Exam: Positive: PERRLA, EOMI Neck Exam: Positive: Supple, Negative: JVD Chest Exam: Positive: Rales, Diminished (RUL) Heart Exam: Positive: Rate Normal, Normal S1, Normal S2, Negative: Tachycardic Abdomen Exam: Positive: Normal bowel sounds, Soft, Negative: Tenderness Extremity Exam: Negative: Clubbing, Cyanosis, Edema Assessment /Plan Assessment 70-year-old female h/o copd on 2L o2 at home, Depression, HLD, smoking, neuropathy, low grade urothelial carcinoma of bladder, with respiratory failure and renal failure likely secondary to strep pneumoniae pneumonia and bacteremia Problems (1) Pneumonia Status: Acute Response to Treatment: Improving Problem Text: Strep lobar pna, RUL Pathology appreciated. culture appreciated, currently on Rocephin for antibiotics lots of secretion (2) Sepsis Status: Resolved Problem Text: 2/2 to strep lobar pna, bp stable, culture appreciated, c/w antibiotics, IVF initially give. Initially required ICU stay TLC need to be discontinued, picc line ordered wbc increased, consulted ID (3) Protein-calorie malnutrition, severe Status: Chronic Problem Text: oral encouraged, ensure (4) COPD (chronic obstructive pulmonary disease) Status: Chronic Problem Text: c/w med (5) Hyperlipidemia Status: Chronic Problem Text: statin (6) Hypertension Status: Chronic Problem Text: c/w med (7) Anxiety and depression Status: Chronic Problem Text: c.w meds (8) Peripheral neuropathy Status: Chronic Problem Text: c.w meds (9) Hemoptysis Status: Resolved Problem Text: hold anticoagulation (10) Physical deconditioning Status: Chronic Problem Text: pt, may need STR (11) DMII (diabetes mellitus, type 2) Problem Text: c.w insulin, adjusted for hyperglycemia f/u fs Plan/VTE VTE Prophylaxis Ordered?: Yes (teds scq given hemoptysis) Plan/Urinary Catheter Reason for insertion/continuin: Critical Pt monitoring Disposition ID consult, clinical improvement, PT, possible STR VS, I&O, 24H, Fishbone Vital Signs/I&O Vital Signs Date Time Temp Pulse Resp B/P (MAP) Pulse Ox O2 Delivery O2 Flow Rate FiO2 08/02/16 10:00 98.2 61 20 133/64 (87) 93 Room Air 08/01/16 08:15 0.0 07/27/16 06:01 30 I&O- Last 24 Hours up to 6 AM 08/02/16 05:59 Intake Total 480 ml Balance 480 ml Laboratory Data 24H LABS Laboratory Tests 2 08/01/16 17:14: Bedside Glucose (Misc Panel) 140H 08/01/16 19:59: Bedside Glucose (Misc Panel) 192H 08/02/16 05:45: Anion Gap 11, Glomerular Filtration Rate > 60.0, Blood Urea Nitrogen 30H, Creatinine 0.69, Sodium Level 134L, Potassium Level 4.5, Chloride Level 103, Carbon Dioxide Level 20L, Calcium Level 8.2L, Phosphorus Level 3.3, Aspartate Amino Transf (AST/SGOT) 22, Alanine Aminotransferase (ALT/SGPT) 24, Lactate Dehydrogenase 260H, Total Creatine Kinase 32, Alkaline Phosphatase 462H, Total Bilirubin 0.5, Triglycerides Level 129, Cholesterol Level 71, Total Protein 6.7 , Albumin 1.8L, Magnesium Level 1.9, C-Reactive Protein, Quantitative 7.63H, Albumin/Globulin Ratio 0.37L 08/02/16 11:55: Bedside Glucose (Misc Panel) 274H CBC/BMP Laboratory Tests 08/02/16 05:45 Red Blood Count 3.39 L, Mean Corpuscular Volume 92.8, Mean Corpuscular Hemoglobin 28.7, Mean Corpuscular Hemoglobin Concent 31.0 L, Red Cell Distribution Width 15.8 H, Calcium Level 8.2 L, Phosphorus Level 3.3, Aspartate Amino Transf (AST/SGOT) 22, Alanine Aminotransferase (ALT/SGPT) 24, Lactate Dehydrogenase 260 H, Total Creatine Kinase 32, Alkaline Phosphatase 462 H, Total Bilirubin 0.5, Triglycerides Level 129, Cholesterol Level 71, Total Protein 6.7, Albumin 1.8 L Microbiology Microbiology 07/25/16 Blood Culture - Final, Complete NO GROWTH AFTER 5 DAYS 07/24/16 Blood Culture - Final, Complete Streptococcus Pneumoniae 07/24/16 Blood Culture - Final, Complete Streptococcus Pneumoniae 07/30/16 Gastrointestinal Tract Panel (PCR) - Final, Complete 07/24/16 Gastrointestinal Tract Panel (PCR) - Final, Complete 07/24/16 Gram Stain - Final, Complete 07/24/16 Sputum Culture - Final, Complete Escherichia Coli Streptococcus Pneumoniae Yeast Like Organism 07/24/16 Gram Stain - Final, Complete 07/24/16 Sputum Culture - Final, Complete Escherichia Coli Streptococcus Pneumoniae 07/24/16 Urine Culture - Final, Complete Escherichia Coli SAAD FRIED MD Aug 02, 2016 12:38
[2016-08-02 14:00] VITALS: BP_SYST 114; BP_SYST 151; BP_DIAS 55; BP_DIAS 95
--- NOTE | 2016-08-02 16:54 | REP ---
Procedure: PICC line insertion with Zak-Carri The procedure was performed under the direct supervision of Dr. Barrios. The risks and benefits of the procedure were explained to the patient and informed consent was obtained. The right basilic vein was localized using ultrasound guidance. The skin was prepped and draped in a sterile fashion. 2% lidocaine was used as a local anesthetic. Using ultrasound guidance the basilic vein was cannulated and a 0.018 guidewire was inserted and advanced to the SVC using fluoroscopic guidance. The needle was removed and a 4.5 Haitian dilator and peel-away sheath was inserted over the guide wire. A 4.5 Haitian single lumen catheter was cut to length of 44 cm. The dilator was removed and the catheter was inserted over the guide wire with the tip ending in the SVC. The peel-away sheath was removed and the catheter was flushed with heparinized saline as per Hospital protocol. The catheter was affixed to the skin and a sterile dressing was applied. The the patient tolerated the procedure well and there were no immediate complications. 0.2 minutes of fluoro time was utilized for this procedure. Reviewed by RIO Min 08/02/2016 04:26 PSigned by Boy Barrios MD 08/02/2016 04:45 P
[2016-08-02] MEDS: ATORVASTATIN 20 MG TAB PO SCH (21:22)
[2016-08-02] MEDS: AMOXICILLIN 875 MG TAB PO SCH (21:22)
[2016-08-02 22:00] VITALS: BP 114/74
--- NOTE | 2016-08-02 22:24 | CR ---
DATE OF CONSULTATION: 08/02/2016 REQUESTING PHYSICIAN: I was asked to consult by Dr. Tijerina for evaluation of pneumococcal pneumonia with persistent leukocytosis. HISTORY OF PRESENT ILLNESS: Mrs. Ponce is a 70-year-old female with a history of chronic obstructive pulmonary disease (COPD), tobacco abuse with 180 pack- year smoking, who presented to the emergency room brought in by her son with confusion, shortness of breath, increasing cough. The patient was noted to be dehydrated with a very elevated BUN of 107. She was septic. She had positive blood cultures with pneumococcus and a sputum culture as well had Streptococcus pneumoniae, as well as Escherichia (E) coli. The patient received 48 hours of IV vancomycin and Zosyn and then was switched to IV Rocephin, which she has received for the past 8 days. The patient has a very large pneumonia in the right upper lobe that was suspicious for a mass and therefore had a CT-guided biopsy, which was negative for malignancy. She has slowly improved and was transferred from the intensive care unit (ICU) to [address] [place] [address]. She is clinically feeling better and would like to go home. She has been afebrile for the past 10 days. She denies any nausea, vomiting or diarrhea. She states her appetite is poor. She has canker sores in her mouth. She denies any chest pain or shortness of breath. She is not wearing her oxygen. She has not ambulated much. PAST MEDICAL HISTORY: Her past medical history is significant for COPD, not oxygen or steroid dependent, recurrent pneumonia with a history of empyema in September 2015, status post drainage and had positive MAC, 12/2015 a right middle lobe pneumonia, depression, dyslipidemia, tobacco abuse with a 180 pack-year history, neuropathy, urothelial carcinoma of the bladder. ALLERGIES: DYE, SULFA, BACITRACIN, CORTISONE, FLUOXETINE, NEOMYCIN, POLYMYXIN, TRAMADOL, OXYCODONE causing itching. SURGICAL HISTORY: 1. Hysterectomy. 2. Transurethral resection of a bladder tumor (TURB). SOCIAL HISTORY: She lives alone. She is a smoker, three packs per day. She is independent with activities of daily living and is still driving. She drinks socially. She does not use any drugs. She has a Medical Orders for Life Sustaining Treatment (MOLST) form completed at home. FAMILY HISTORY: Nonrevealing. REVIEW OF SYSTEMS: She has a cough, which is productive of some bloody phlegm. Mild shortness of breath . No nausea, vomiting or diarrhea. No upper or lower extremity weakness. She does complain of generalized weakness and decreased appetite and canker sores. MEDICATIONS: - heparin flushes - Protonix 40 mg daily - hydralazine 50 mg by mouth twice a day - amlodipine 10 mg daily - insulin sliding scale - clonidine 0.1 mg by mouth daily - atorvastatin 20 mg by mouth at night - [place] one tablet by mouth every 4 hours as needed - atenolol 100 mg by mouth daily - Rocephin 2 grams IV every 24 hours, day number 8 - Mucinex 1200 mg by mouth twice a day - Tylenol as needed - DuoNeb 3 mL every 6 hours as needed - albuterol/Atrovent nebs as needed - Colace 100 mg by mouth twice a day - milk of magnesia as needed - Zoloft 100 mg by mouth twice a day LABORATORY DATA: White count is 15, hemoglobin 9.8, hematocrit 31.5, platelets 153, platelets were down to 39 on 07/26 and finally are normalizing. Sodium 134, potassium 4.5, chloride 103, bicarbonate 20, BUN 30, creatinine 0.69, glucose 321, calcium 8.2, phosphorus 3.3, magnesium 1.9, AST 22, ALT 24, alkaline phosphatase 462, LDH 260 , CPK 32, C-reactive protein 7.63, total protein 6.7, albumin 1.8. ANCA, C-ANCA, P-ANCA are r negative. Urinalysis had +1 protein, +1, glucose, 7 white cells. Microbiology: Blood cultures two sets were positive for pneumococcus. Sputum culture had many E-coli and many Streptococcus pneumo. Urine culture had 15,000 E-coli a and sputum culture from 07/24 had E-coli, Streptococcus pneumoniae and yeast-like organism. E-coli is sensitive to Bactrim, ceftriaxone, cefazolin, ampicillin. Repeat blood culture was done on 07/25 with negative. GI panel done on 07/24 and 07/30 were negative. PHYSICAL EXAMINATION: On physical examination, she is a frail looking female in no acute distress. HEART: Normal S1, S2 with no murmurs, rubs or gallops. Distant. LUNGS: Few exterior crackles at the right upper lobe and exterior wheezes, diminished at the right upper lobe, otherwise fairly good air entry. ABDOMEN: Soft, nontender. No hepatosplenomegaly. EXTREMITIES: No clubbing, cyanosis or edema. Arms have multiple ecchymotic areas, as well as some ulcerations around the elbow with scabs. Oropharynx is edentulous. No thrush. Neck is supple. No jugular venous distention (JVD). No bruits. IMPRESSION: This is a 70-year-old female with advanced COPD who was admitted with pneumococcal sepsis and very large right upper lobe pneumonia that has markedly improved on x-ray. Clinically, the patient has improved. She has received 10 days of broad-spectrum antibiotics, initially vancomycin and Zosyn followed by Rocephin. She had sputum that was positive for heavy growth of E-coli, as well as pneumococcus and positive blood cultures for pneumococcus. The E-coli is sensitive to ampicillin and therefore would suggest discontinuing IV Rocephin and starting amoxicillin 500 mg by mouth three times a day. As this is a very large pneumonia with what looks like a possible abscess, PLAN I would continue with antibiotics for another 7-10 days. She does not need broad-spectrum antibiotic with IV Rocephin. The patient had at least four bowel movements a day and is still receiving milk of magnesia daily and has had to GI panels sent, which are positive. The patient says she does not have diarrhea and has been given laxatives. Please stop sending GI panels on this patient and discontinue laxatives. Case has been reviewed with Dr. Smith. SUNITA
[2016-08-03 02:00] VITALS: BP 140/64
[2016-08-03 06:00] VITALS: BP 119/73
[2016-08-03] MEDS: SODIUM CHLORIDE 0.9% INJ 10 ML SYR IV SCH ×2 (06:12→18:57)
[2016-08-03 06:38] LABS: MEAN CORPUSCULAR HEMOGLOBIN 29.3 pg (27.0-33.0); MEAN CORPUSCULAR VOLUME 91.3 fl (80.0-96.0); RED CELL DISTRIBUTION WIDTH 16.1 % (11.5-14.5); WHITE BLOOD COUNT 18.4 K/mm3 (4.0-10.0)
[2016-08-03 06:56] LABS: ALBUMIN 1.8 GM/DL (3.2-5.2); ALBUMIN/GLOBULIN RATIO 0.42 (1.00-1.93); ALKALINE PHOSPHATASE 379 U/L (45-117); ALT/SGPT 21 U/L (12-78); ANION GAP 14 MEQ/L (8-16); AST/SGOT 20 U/L (15-37); BILIRUBIN,TOTAL 0.5 MG/DL (0.2-1.0); BLOOD UREA NITROGEN 35 MG/DL (7-18); CALCIUM LEVEL 7.9 MG/DL (8.8-10.2); CARBON DIOXIDE LEVEL 19 MEQ/L (21-32); CHLORIDE LEVEL 105 MEQ/L (98-107); CHOLESTEROL LEVEL 79 MG/DL (< 200); CREATININE FOR GFR 0.73 MG/DL (0.55-1.02); GLOMERULAR FILTRATION RATE > 60.0 (>39); GLUCOSE, FASTING 291 MG/DL (83-110); PHOSPHORUS LEVEL 3.8 MG/DL (2.5-4.9); POTASSIUM SERUM 4.5 MEQ/L (3.5-5.1); SODIUM LEVEL 138 MEQ/L (136-145); TOTAL PROTEIN 6.1 GM/DL (6.4-8.2); TRIGLYCERIDES LEVEL 149 MG/DL (<150)
[2016-08-03] MEDS: IPRATROPIUM 0.5MG/ALBUTEROL 2.5MG INH SOL UD 3ML (DUONEB)(J7620) NEB SCH ×4 (07:57→23:55)
[2016-08-03] MEDS: HumaLOG INSULIN (NovoLOG) PER UNIT SC SCH ×4 (09:21→21:50)
[2016-08-03] MEDS: AMOXICILLIN 875 MG TAB PO SCH ×2 (09:22→21:50)
[2016-08-03] MEDS: guaiFENesin ER 600 MG TAB PO SCH ×2 (09:22→21:48)
[2016-08-03] MEDS: ATENOLOL 50 MG TAB PO SCH (09:22)
[2016-08-03] MEDS: PANTOPRAZOLE 40MG TAB (PROTONIX) PO SCH (09:22)
[2016-08-03] MEDS: SERTRALINE 100 MG TAB PO SCH ×2 (09:22→21:49)
[2016-08-03] MEDS: amLODIPine 10 MG TAB PO SCH (09:23)
[2016-08-03] MEDS: cloNIDine 0.1 MG TAB PO SCH (09:23)
[2016-08-03] MEDS: NORCO, ANEXSIA 5/325MG TABLET (HYDROcodone/ACETAMINOPHEN) PO PRN ×3 (09:23→21:49)
[2016-08-03] MEDS: **hydrALAZINE** 50 MG TAB PO SCH ×2 (09:24→21:50)
[2016-08-03 10:00] VITALS: BP 117/58
--- NOTE | 2016-08-03 11:09 | REP ---
AP LATERAL SEATED CHEST: 08/03/2016 COMPARISON: 08/02/2016, 08/01/2016, 07/30/2016. CLINICAL HISTORY: Follow-up right upper lobe pneumonia. FINDINGS: Right upper extremity PICC line terminating in the SVC at the right atrium. The consolidative opacity in the right upper lobe is again seen and really unchanged from the past 2 days. It does have a somewhat more rounded contour inferiorly on the fissure on the frontal view but this may be the difference between the standard PA and a lordotic AP view today. The apical medial aspect shows better aeration as on the previous day's left lung remains clear. No other change. No effusion. Signed by Darvin Monroe MD 08/03/2016 07:56 P
[2016-08-03] MEDS ORDERED: ISOVUE-370 76% 100ML VIAL (Q9967) As Ordered ONE (16:00)
[2016-08-03] MEDS ORDERED: AMOX875T PO (16:25)
[2016-08-03] MEDS ORDERED: GUAI60TA PO (16:25)
[2016-08-03] MEDS ORDERED: CLONI1TA PO (16:25)
[2016-08-03] MEDS ORDERED: HYDR50TA PO (16:25)
[2016-08-03] MEDS ORDERED: AMLO10TA2 PO (16:25)
--- NOTE | 2016-08-03 17:50 | DSES ---
DATE OF ADMISSION: 07/24/2016 DATE OF DISCHARGE: 08/03/2016 FINAL DIAGNOSES: 1. Sepsis with streptococcus lobar pneumonia, right upper lobe. 2. Protein calorie malnutrition, severe. 3. Deconditioning. 4. Chronic obstructive pulmonary disease. 5. Dyslipidemia. 6. Hypertension. 7. Anxiety and depression. 8. Peripheral neuropathy. 9. Hemoptysis. 10. Type 2 diabetes. UROLOGIST: Dr. Astudillo PRIMARY CARE PROVIDER: Lucie Mccormick MOTOR VEHICLE COMPLIANCE ANALYST: Dr. Erickson THORACIC SURGEON: Dr. Smith HISTORY OF PRESENT ILLNESS: This is a 70-year-old female patient who lives alone. Has a history of 180 pack-year history, smoking three packs a day for over 60 years with ongoing smoking issue. Patient was recently admitted in September for empyema of the right lower lobe. Had a pigtail catheter at that time. She subsequently was readmitted in December with right middle lobe pneumonia at that time. At this time, patient was in her usual state of health on Friday; however, over the weekend of admission patient began developing worsening cough and shortness of breath, weakness, and feeling unwell. She did not call for help, and her son and [id number] went in to check in on her, found her to be confused and unable to get up, prompting her to be sent to the emergency room. At present time, patient has told that she is feeling terrible and just having difficulty with breathing, coughing more than usual, not remembering what happened for the past few days, too tired to answer questions. HOSPITAL COURSE: Patient is admitted to the intensive care unit (ICU), initially with hypercarbia. She was started on broad-spectrum antibiotics with lobar pneumonia. Cultures were sent, growing streptococcus. Thoracic surgeon was consulted for recurrent pneumonia. Costume Specialist was also involved. The consolidation was biopsied, showing inflammatory changes and no active malignancy. Patient's symptoms progressively improved with bilevel positive airway pressure (BiPAP) and also antibiotics. Patient initially also had renal insufficiency, likely secondary to sepsis, which progressively improved. Nephrology was consulted, and infectious disease was also involved. Patient's antibiotic was progressively de-escalated, and patient's anticoagulation for deep vein thrombosis (DVT) prophylaxis was on hold secondary to hemoptysis, likely secondary to pneumonia. Patient currently feels better, but unfortunately patient still has significant leukocytosis of 18 and very deconditioned, unable to pass physical therapy, but patient demanded to leave the hospital against medical advice. Does not want to stay in the hospital any longer than necessary. Have spoken to the patient and the son, stating that the patient still requires further workup, predominantly a repeat CT scan to rule out any occurring empyema or any abscess given the significant leukocytosis that cannot be explained, and further more patient still too weak to go home and needs significantly more care and more services. Possibly would benefit from short-term rehabilitation. Unfortunately, patient and patient's son are adamant that they are going home today and would like to leave against medical advice. Patient's son, whose name is Johann, is aware that patient can potentially fall, get worsening infection, and potentially can if left against medical advice and prior to treatment being completed. Patient and patient's son are aware of the risk and still would like to leave against medical advice. Paperwork was sent. Antibiotic prescriptions are sent to the pharmacy. VITAL SIGNS: Temperature 97.6, pulse 61, respirations 18, blood pressure 119/73, pulse oximetry 94% in room air. GENERAL: Patient alert, comfortable in no acute distress. HEENT: Normocephalic, atraumatic. PULMONARY: Rales and diminished breath sounds, right upper lobe. CARDIAC: Regular rate and rhythm. Normal S1, S2. ABDOMEN: Soft, nontender, nondistended. EXTREMITIES: No edema, bilateral lower extremities. LABORATORY: WBC 18.4, hemoglobin and hematocrit 9.4/29.4, platelets 173. Chemistry: Sodium 138, potassium 4.5, chloride 105, bicarbonate 19, BUN 35, creatinine 0.7, C-reactive protein 6.4. DISCHARGE MEDICATIONS: - Norvasc 10 mg by mouth daily - amoxicillin 875 mg by mouth twice a day for 10 more days - clonidine 0.1 mg by mouth daily - Mucinex 1200 mg by mouth twice a day - hydralazine 50 mg by mouth twice a day - Hycodan/acetaminophen 5/325 mg by mouth every 4 hours as needed - atenolol 100 mg by mouth daily - Lipitor 20 mg by mouth at bedtime - Breo inhalation daily - Neurontin 600 mg by mouth twice a day - Lantus 20 units subcutaneous daily - metformin 1000 mg by mouth twice a day - Zoloft 100 mg by mouth twice a day DISCHARGE INSTRUCTIONS: Patient is instructed to followup with primary care provider as soon as possible. Patient is currently leaving against medical advice and is aware of the risk of drying, worsening infection, falling and injuring herself that is involved.
[2016-08-03] MEDS: ATORVASTATIN 20 MG TAB PO SCH (21:48)
[2016-08-03 22:00] VITALS: BP 131/61
[2016-08-04] VITALS (7 sets, daily range): BP systolic 127–151; BP diastolic 58–72
[2016-08-04] MEDS: SODIUM CHLORIDE 0.9% INJ 10 ML SYR IV SCH ×2 (05:53→18:34)
[2016-08-04 06:13] LABS: MEAN CORPUSCULAR HEMOGLOBIN 28.6 pg (27.0-33.0); MEAN CORPUSCULAR HGB CONC 31.1 g/dl (32.0-36.5); RED CELL DISTRIBUTION WIDTH 16.1 % (11.5-14.5); WHITE BLOOD COUNT 12.4 K/mm3 (4.0-10.0)
[2016-08-04 06:33] LABS: ANION GAP 8 MEQ/L (8-16); BLOOD UREA NITROGEN 34 MG/DL (7-18); CALCIUM LEVEL 7.8 MG/DL (8.8-10.2); CARBON DIOXIDE LEVEL 25 MEQ/L (21-32); CHLORIDE LEVEL 105 MEQ/L (98-107); CREATININE FOR GFR 0.79 MG/DL (0.55-1.02); GLOMERULAR FILTRATION RATE > 60.0 (>39); GLUCOSE, FASTING 294 MG/DL (83-110); MAGNESIUM LEVEL 1.8 MG/DL (1.8-2.4); POTASSIUM SERUM 4.4 MEQ/L (3.5-5.1); SODIUM LEVEL 138 MEQ/L (136-145)
[2016-08-04] MEDS: IPRATROPIUM 0.5MG/ALBUTEROL 2.5MG INH SOL UD 3ML (DUONEB)(J7620) NEB SCH ×3 (07:37→20:00)
[2016-08-04] MEDS: ATENOLOL 50 MG TAB PO SCH (09:46)
[2016-08-04] MEDS: PANTOPRAZOLE 40MG TAB (PROTONIX) PO SCH (09:46)
[2016-08-04] MEDS: **hydrALAZINE** 50 MG TAB PO SCH ×2 (09:46→20:51)
[2016-08-04] MEDS: SERTRALINE 100 MG TAB PO SCH ×2 (09:46→20:52)
[2016-08-04] MEDS: HumaLOG INSULIN (NovoLOG) PER UNIT SC SCH ×4 (09:46→20:52)
[2016-08-04] MEDS: amLODIPine 10 MG TAB PO SCH (09:46)
[2016-08-04] MEDS: cloNIDine 0.1 MG TAB PO SCH (09:46)
[2016-08-04] MEDS: AMOXICILLIN 875 MG TAB PO SCH ×2 (09:46→20:51)
[2016-08-04] MEDS: NORCO, ANEXSIA 5/325MG TABLET (HYDROcodone/ACETAMINOPHEN) PO PRN ×3 (09:47→18:34)
[2016-08-04] MEDS: guaiFENesin ER 600 MG TAB PO SCH ×2 (09:47→20:52)
--- NOTE | 2016-08-04 14:29 | IPNPDOC ---
Subjective Date Seen The patient was seen on 08/04/16. Subjective Chief Complaint/HPI The patient is a 70-year-old female admitted with a reason for visit of Pneumonia. Events since last encounter reported cough with brown sputum, agreed to stay after persuasion by son. did not leave against medical advice. Denied CP, abd pain, n/v Constitutional: Denies: Chills, Fever ENT: Denies: Head Aches Pulmonary: Reports: Dyspnea, Cough Cardiovascular: Denies: Chest Pain, Palpitations Gastrointestinal: Denies: Nausea, Vomiting, Abdominal Pain Objective Physical Examination General Exam: Positive: Alert, Cooperative, Mild Distress, Other (frail) Eye Exam: Positive: PERRLA, EOMI Neck Exam: Positive: Supple, Negative: JVD Chest Exam: Positive: Rales, Diminished (RUL) Heart Exam: Positive: Rate Normal, Normal S1, Normal S2, Negative: Tachycardic Abdomen Exam: Positive: Normal bowel sounds, Soft, Negative: Tenderness Extremity Exam: Negative: Clubbing, Cyanosis, Edema Assessment /Plan Assessment 70-year-old female h/o copd on 2L o2 at home, Depression, HLD, smoking, neuropathy, low grade urothelial carcinoma of bladder, with respiratory failure and renal failure likely secondary to strep pneumoniae pneumonia and bacteremia Problems (1) Pneumonia Status: Acute Response to Treatment: Improving Problem Text: Strep lobar pna, RUL Pathology appreciated. culture appreciated, rocephin swtiched to amoxicilin by ID lots of secretion (2) Sepsis Status: Resolved Problem Text: 2/2 to strep lobar pna, bp stable, culture appreciated, c/w antibiotics, IVF initially give. Initially required ICU stay TLC discontinued, picc line consulted ID on amoxicillin (3) Protein-calorie malnutrition, severe Status: Chronic Problem Text: oral encouraged, ensure (4) COPD (chronic obstructive pulmonary disease) Status: Chronic Problem Text: c/w med (5) Hyperlipidemia Status: Chronic Problem Text: statin (6) Hypertension Status: Chronic Problem Text: c/w med (7) Anxiety and depression Status: Chronic Problem Text: c.w meds (8) Peripheral neuropathy Status: Chronic Problem Text: c.w meds (9) Hemoptysis Status: Resolved Problem Text: hold anticoagulation (10) Physical deconditioning Status: Chronic Problem Text: pt, may need STR (11) DMII (diabetes mellitus, type 2) Problem Text: c.w insulin, adjusted for hyperglycemia f/u fs Plan/VTE VTE Prophylaxis Ordered?: Yes (teds scq given hemoptysis) Plan/Urinary Catheter Reason for insertion/continuin: Critical Pt monitoring Disposition pending pt, possible STR VS, I&O, 24H, Fishbone Vital Signs/I&O Vital Signs Date Time Temp Pulse Resp B/P (MAP) Pulse Ox O2 Delivery O2 Flow Rate FiO2 08/04/16 11:46 Room Air 08/04/16 10:17 16 08/04/16 09:46 68 139/66 08/04/16 06:00 97.8 92 08/01/16 08:15 0.0 I&O- Last 24 Hours up to 6 AM 08/04/16 06:00 Intake Total 480 ml Output Total 0 ml Balance 480 ml Laboratory Data 24H LABS Laboratory Tests 2 08/03/16 20:19: Bedside Glucose (Misc Panel) 320H 08/04/16 05:58: Anion Gap 8, Glomerular Filtration Rate > 60.0, Blood Urea Nitrogen 34H, Creatinine 0.79, Sodium Level 138, Potassium Level 4.4, Chloride Level 105, Carbon Dioxide Level 25, Calcium Level 7.8L, Magnesium Level 1.8, C-Reactive Protein, Quantitative 6.19H 08/04/16 12:26: Bedside Glucose (Misc Panel) 296H CBC/BMP Laboratory Tests 08/04/16 05:58 Red Blood Count 3.10 L, Mean Corpuscular Volume 92.0, Mean Corpuscular Hemoglobin 28.6, Mean Corpuscular Hemoglobin Concent 31.1 L, Red Cell Distribution Width 16.1 H, Calcium Level 7.8 L Microbiology Microbiology 07/25/16 Blood Culture - Final, Complete NO GROWTH AFTER 5 DAYS 07/30/16 Gastrointestinal Tract Panel (PCR) - Final, Complete SAAD FRIED MD Aug 04, 2016 14:29
[2016-08-04] MEDS: ATORVASTATIN 20 MG TAB PO SCH (20:51)
[2016-08-05 02:00] VITALS: BP 134/64
[2016-08-05] MEDS: IPRATROPIUM 0.5MG/ALBUTEROL 2.5MG INH SOL UD 3ML (DUONEB)(J7620) NEB SCH ×2 (02:00→07:50)
[2016-08-05] MEDS: SODIUM CHLORIDE 0.9% INJ 10 ML SYR IV SCH (05:18)
[2016-08-05 05:30] LABS: MEAN CORPUSCULAR HEMOGLOBIN 29.2 pg (27.0-33.0); MEAN CORPUSCULAR HGB CONC 31.7 g/dl (32.0-36.5); MEAN CORPUSCULAR VOLUME 92.1 fl (80.0-96.0); RED CELL DISTRIBUTION WIDTH 16.4 % (11.5-14.5); WHITE BLOOD COUNT 12.8 K/mm3 (4.0-10.0)
[2016-08-05 05:54] LABS: ANION GAP 7 MEQ/L (8-16); BLOOD UREA NITROGEN 28 MG/DL (7-18); CARBON DIOXIDE LEVEL 25 MEQ/L (21-32); CHLORIDE LEVEL 106 MEQ/L (98-107); CREATININE FOR GFR 0.81 MG/DL (0.55-1.02); GLOMERULAR FILTRATION RATE > 60.0 (>39); GLUCOSE, FASTING 353 MG/DL (83-110); MAGNESIUM LEVEL 1.9 MG/DL (1.8-2.4); POTASSIUM SERUM 4.7 MEQ/L (3.5-5.1); SODIUM LEVEL 138 MEQ/L (136-145)
[2016-08-05 06:00] VITALS: BP 145/84
[2016-08-05] MEDS: ATENOLOL 50 MG TAB PO SCH ×2 (08:06→09:00)
[2016-08-05] MEDS: PANTOPRAZOLE 40MG TAB (PROTONIX) PO SCH (08:06)
[2016-08-05] MEDS: AMOXICILLIN 875 MG TAB PO SCH ×2 (08:06→09:00)
[2016-08-05] MEDS: **hydrALAZINE** 50 MG TAB PO SCH ×2 (08:06→09:00)
[2016-08-05] MEDS: guaiFENesin ER 600 MG TAB PO SCH ×2 (08:06→09:00)
[2016-08-05] MEDS: cloNIDine 0.1 MG TAB PO SCH ×2 (08:07→09:00)
[2016-08-05] MEDS: SERTRALINE 100 MG TAB PO SCH ×2 (08:07→09:00)
[2016-08-05] MEDS: amLODIPine 10 MG TAB PO SCH ×2 (08:07→09:00)
[2016-08-05] MEDS: HumaLOG INSULIN (NovoLOG) PER UNIT SC SCH ×2 (08:08→12:00)
--- NOTE | 2016-08-06 05:59 | DSES ---
DATE OF ADMISSION: 07/24/2016 DATE OF DISCHARGE: 08/05/2016 PRIMARY CARE PROVIDER: Lucie Mccormick. CIGARETTE MAKING MACHINE CATCHER: Dr. Fong. SOFTWARE DEVELOPER: Dr. Erickson. INFECTIOUS DISEASE SPECIALIST: Dr. Palma. UROLOGIST: Dr. Astudillo. FINAL DIAGNOSES: Sepsis with streptococcus lobar pneumonia right upper lobe. Severe protein calorie malnutrition. Deconditioning. Chronic obstructive pulmonary disease (COPD). Dyslipidemia. Hypertension. Anxiety. Depression. Peripheral neuropathy. Hemoptysis. Type 2 diabetes poor compliance. Dementia. HISTORY OF PRESENT ILLNESS: This is a 70-year-old female patient who lived alone prior to admission, has history of 180 pack year smoke history, two packs a day for 60 years with ongoing smoking issue. Patient recently admitted in September for empyema right lower lobe and had pigtail catheter. At that time, she subsequently was readmitted in December with right middle lobe pneumonia at that time. At this time, patient was in her usual state of health on Friday prior to admission, however, over the weekend after admission, patient began developing worsening cough and shortness of breath, weakness, feeling unwell and she did not call for help and her son and [id number] went to check on her and found her to be confused, unable to get up and prompted her to be sent to the emergency room. Patient reported feeling terrible with difficulty breathing, significant cough more than usual, not remember what happened for the past few days and too tired to answer questions. HOSPITAL COURSE: Patient was admitted to the intensive care unit (ICU) initially with hypercarbia and was started on broad spectrum antibiotics for lobar pneumonia. Cultures were sent growing streptococcus. Thoracic surgeon was consulted for recurrent pneumonia. Monotype Operator also involved and the consolidation was biopsy to see if there is any malignancy which only showed inflammatory changes and no active malignancy. Patient's symptoms progressively improved with initially on BiPAP and also antibiotics. BiPAP was weaned off. Patient also had developed renal insufficiency likely secondary to sepsis which progressively improved. Nephrology was consulted as well as infectious disease. Patient's antibiotics were de-escalated. Deep venous thrombosis (DVT) prophylaxis was provided but was also on hold due to hemoptysis likely due to pneumonia. Patient currently feels better but still pretty weak. During the hospital course, patient has on multiple occasions along with son, wanting to leave against medical advise. On the day of discharge, patient also threatened to leave against medical advise as well as the son. Fortunately physical therapy has cleared the patient for discharge but given patient has pretty significant dementia and poor compliance, case was discussed with the son. As per son, he will be hiring aids at home to supervise the patient for 02/09 to provide patient's care. Subsequently patient was discharged. Patient is poorly compliant, severe deconditioning, poor overall prognosis. Vital signs: Temperature 98.5, pulse 69, respirations 20, blood pressure 145/84, pulse oximetry 92% on room air. General: Patient alert, oriented times three. No acute distress. HEENT: Normocephalic, atraumatic. Frail. Pulmonary: Diminished breath sounds right upper lobe. No wheeze. Cardiac: Regular rate and rhythm. Normal S1, S2. Abdomen: Soft, nontender. Positive bowel sounds. Extremities: No edema of bilateral lower extremities. LABORATORY : WBC 12.8, hemoglobin and hematocrit 8.9/28, platelets 186. Chemistry: Sodium 138, potassium 4.7, chloride 106, bicarbonate 25, BUN 28, creatinine 0.8. DISCHARGE MEDICATIONS: - Norvasc 10 mg by mouth daily - amoxicillin 875 mg by mouth twice daily for 10 more days - clonidine 0.1 mg by mouth daily - Mucinex 1200 mg by mouth twice daily - hydralazine 50 mg by mouth twice daily - hydrocodone/acetaminophen 5/325 mg by mouth every 4 hours as needed - atenolol 100 mg by mouth daily - Lipitor 20 mg by mouth daily - Breo inhalation daily - Neurontin 600 mg by mouth twice daily - Lantus 20 units subcutaneous daily - metformin 1000 mg by mouth twice daily - Zoloft 100 mg by mouth twice daily DISCHARGE INSTRUCTIONS: Patient is instructed to followup with primary care provider as soon as possible. Return to the hospital if symptoms worsen, to be compliant with her medication.
== END 2016-08-05 13:10 | disposition home health service (06) | DRG 871 ==
LOC: EDBD 08:13 → M ED 10:22 → M ED INP 10:42 → M ICU 12:55 → M MS5PR 07-31 00:20
PROVIDERS: ADMIT Thoracic Surgery (Cardiothoracic Vascular Surgery); ATTEND Hospitalist
PROC: 05HM33Z Insertion of Infusion Device into Right Internal Jugular Vein, Percutaneous Approach (ICD-10-PCS; 2016-07-24)
PROC: 0BBC3ZX Excision of Right Upper Lung Lobe, Percutaneous Approach, Diagnostic (ICD-10-PCS; principal; 2016-07-26)
PROC: 0BJ08ZZ Inspection of Tracheobronchial Tree, Via Natural or Artificial Opening Endoscopic (ICD-10-PCS; 2016-07-27)
PROC: 05HB33Z Insertion of Infusion Device into Right Basilic Vein, Percutaneous Approach (ICD-10-PCS; 2016-08-01)
DX: A40.3 Sepsis due to Streptococcus pneumoniae (principal); J13 Pneumonia due to Streptococcus pneumoniae; J96.01 Acute respiratory failure with hypoxia; J96.02 Acute respiratory failure with hypercapnia; G93.49 Other encephalopathy; E43 Unspecified severe protein-calorie malnutrition; R65.20 Severe sepsis without septic shock; E87.2 Acidosis; N17.9 Acute kidney failure, unspecified; E87.1 Hypo-osmolality and hyponatremia; I24.8 Other forms of acute ischemic heart disease; N39.0 Urinary tract infection, site not specified; R04.2 Hemoptysis; I10 Essential (primary) hypertension; E78.5 Hyperlipidemia, unspecified; F32.9 Major depressive disorder, single episode, unspecified; F41.9 Anxiety disorder, unspecified; F17.210 Nicotine dependence, cigarettes, uncomplicated; B96.20 Unspecified Escherichia coli [E. coli] as the cause of diseases classified elsewhere; F03.90 Unspecified dementia, unspecified severity, without behavioral disturbance, psychotic disturbance, mood disturbance, and anxiety; E86.0 Dehydration; D69.6 Thrombocytopenia, unspecified; R13.10 Dysphagia, unspecified; J44.9 Chronic obstructive pulmonary disease, unspecified; E11.42 Type 2 diabetes mellitus with diabetic polyneuropathy; E11.65 Type 2 diabetes mellitus with hyperglycemia; Z85.51 Personal history of malignant neoplasm of bladder; Z88.2 Allergy status to sulfonamides; Z88.1 Allergy status to other antibiotic agents; Z88.5 Allergy status to narcotic agent; Z88.8 Allergy status to other drugs, medicaments and biological substances; Z79.51 Long term (current) use of inhaled steroids; Z79.84 Long term (current) use of oral hypoglycemic drugs; Z79.4 Long term (current) use of insulin; Z79.899 Other long term (current) drug therapy; Z79.891 Long term (current) use of opiate analgesic

== ENCOUNTER → 2016-09-10 | Outpatient (CLI) | payer MEDICARE ==
[~2016-09-10] MED LIST changes: +ADVA230A INH; +ALBU83IN INH; +ALPR0.5T3 PO; +AMLO10TA2 PO; +AMLO5TAB2 PO; +AMOX875T PO; +ANOR1AER INH; +ASPI81CH PO; +BREO1INH INH; +CLONI1TA PO; +CLOP75TA2 PO; +DOXY100T2 PO; +DRIS50002 PO; +FERR1TAB8 PO; +FURO20TA2 PO; +GABA-279 PO; +HYDR10TAB PO; +HYDR50TA PO; +LEVA750T7 PO; +LEVO75TA34 PO; +LISI-542 PO; +LISI2.5T3 PO; +LISI2.5T4 PO; -METF1000 PO; +METF10004 PO; +MUCI600T31 PO; +NORC1TAB4 PO; +NORCOTAB PO; -NYST100024 TOP; +NYST1POW9 TOP; +OXYC15TA66 PO; +PRED10TA2 PO; +PRED5TA PO; +PROAAER10 INH; +SPIR1CAP INH; +TIOT18INH INH; +VITA500T PO
--- NOTE | 2016-09-10 09:44 | REP ---
PA and lateral chest: Comparisons are 08/18/2016, 07/24/2016 and 12/22 2015. The patient, 's known large pleural-based right upper lobe lung mass is again identified, unchanged from 08/18/2016, decreased in size from 07/24/2069, not present on 12/22/2015. There are focal hypo densities within this mass suggesting there may be cavitary lesions. These were not present on 07/24/2016 but are unchanged and 08/18/2016. There is mild effacement of the left costophrenic angle suggestive of a small right pleural effusion. Left lung is clear. Cardiac size normal. The ashley, mediastinum, and bony thorax are unchanged. Impression: Persisting large right upper lobe mass, possibly containing cavitations. Signed by Boy Kiser MD 09/10/2016 09:36 A
== END ==
LOC: M WUC 08:53
PROVIDERS: ATTEND Physician Assistant Medical
DX: R06.02 Shortness of breath (principal); R05 Cough

== ENCOUNTER → 2016-09-11 | Outpatient (CLI) | payer MEDICARE ==
--- NOTE | 2016-09-11 08:52 | ECGEPIP ---
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 Prominent precordial voltage with strain pattern. Left ventricular hypertrophy Rhythm converted from atrial fibrillation 07/26/16 Electronically Signed On 09-11-2016 8:52:37 EDT by Everett Irizarry
[2016-09-11 09:04] LABS: BASO # 0.1 K/mm3 (0.0-0.2); BASO % 0.7 % (0.0-1.0); EOS # 0.3 K/mm3 (0.0-0.50); EOS % 3.4 % (0.0-3.0); LYMPH # 0.8 K/mm3 (1.5-4.5); LYMPH % 10.3 % (24.0-44.0); MEAN CORPUSCULAR VOLUME 90.7 fl (80.0-96.0); MONO # 0.3 K/mm3 (0.0-0.8); MONO % 4.1 % (0.0-5.0); NEUTROPHILS # 6.2 K/mm3 (1.8-7.7); NEUTROPHILS % 79.6 % (36.0-66.0); RED CELL DISTRIBUTION WIDTH 15.6 % (11.5-14.5); WHITE BLOOD COUNT 7.8 K/mm3 (4.0-10.0)
[2016-09-11 09:51] LABS: ALBUMIN/GLOBULIN RATIO 0.63 (1.00-1.93); ALKALINE PHOSPHATASE 121 U/L (45-117); ALT/SGPT 14 U/L (12-78); ANION GAP 8 MEQ/L (8-16); AST/SGOT 11 U/L (15-37); BILIRUBIN,TOTAL 0.3 MG/DL (0.2-1.0); BLOOD UREA NITROGEN 9 MG/DL (7-18); CALCIUM LEVEL 9.3 MG/DL (8.8-10.2); CARBON DIOXIDE LEVEL 30 MEQ/L (21-32); CHLORIDE LEVEL 103 MEQ/L (98-107); CHOLESTEROL LEVEL 121 MG/DL (<200); CREATININE FOR GFR 0.63 MG/DL (0.55-1.02); GLOMERULAR FILTRATION RATE > 60.0 (>39); GLUCOSE, FASTING 138 MG/DL (83-110); SODIUM LEVEL 141 MEQ/L (136-145); TOTAL PROTEIN 7.8 GM/DL (6.4-8.2); TRIGLYCERIDES LEVEL 132 MG/DL (<150)
== END ==
LOC: M LAB 08:17
PROVIDERS: ATTEND Physician Assistant Medical
DX: E11.9 Type 2 diabetes mellitus without complications (principal)

== ENCOUNTER → 2016-09-17 | Outpatient (CLI) | payer MEDICARE ==
[~2016-09-17] MED LIST changes: +ISOVUE-370 76% 100ML VIAL (Q9967) As Ordered ONE
--- NOTE | 2016-09-17 09:50 | REP ---
CT of the chest without IV contrast: Comparison is 07/24/2016. The studies performed without IV contrast because of inability to obtain venous access. There is a large right upper lobe consolidation containing multiple air bronchograms. This consolidation has decreased size from the comparison study. There are no pleural effusions. The remainder of the lung ferrell are clear. The enlarged mediastinal paratracheal nodes are unchanged. Probable right hilar enlargement, unchanged. This could be better evaluated with IV contrast enhancement. The thoracic aorta is unremarkable except for calcified atheroma. Cardiac size: There is no pericardial effusion. The visualized upper abdominal contents are unchanged. Impression: The large right upper lobe consolidation contains multiple air bronchograms and has decreased in size from 07/24/2016. There is no pleural effusion. The mediastinal adenopathy and enlarged right hilus are unchanged. There are no other interval changes. Signed by Boy Kiser MD 09/17/2016 09:42 A
== END ==
LOC: M RAD 08:01
PROVIDERS: ATTEND Physician Assistant Medical
DX: R91.8 Other nonspecific abnormal finding of lung field (principal)

== ENCOUNTER 2016-09-23 09:15 | Inpatient (IN) | payer MEDICARE ==
[~2016-09-23] VITALS: Ht 160 cm; Wt 55.9 kg
[~2016-09-23 09:15] MED LIST changes: -ADVA230A INH; -ALBU83IN INH; -ALPR0.5T3 PO; -AMLO5TAB2 PO; -ANOR1AER INH; -ASPI81CH PO; -CLOP75TA2 PO; -DOXY100T2 PO; -DRIS50002 PO; -FERR1TAB8 PO; -FURO20TA2 PO; -GABA-279 PO; -HYDR10TAB PO; -ISOVUE-370 76% 100ML VIAL (Q9967) As Ordered ONE; -LEVA750T7 PO; -LEVO75TA34 PO; -LISI-542 PO; -LISI2.5T3 PO; -LISI2.5T4 PO; -NORC1TAB4 PO; -NORCOTAB PO; +NS 1,000 ML IV SCH; -OXYC15TA66 PO; -PRED10TA2 PO; -PRED5TA PO; -PROAAER10 INH; -SPIR1CAP INH; -TIOT18INH INH; -VITA500T PO
[2016-09-23 15:45] VITALS: BP 170/78
[2016-09-23 15:55] LABS: INR 1.01
[2016-09-23 16:10] LABS: ALBUMIN/GLOBULIN RATIO 0.68 (1.00-1.93); ALKALINE PHOSPHATASE 110 U/L (45-117); ALT/SGPT 16 U/L (12-78); ANION GAP 7 MEQ/L (8-16); AST/SGOT 18 U/L (15-37); BILIRUBIN,TOTAL 0.3 MG/DL (0.2-1.0); BLOOD UREA NITROGEN 13 MG/DL (7-18); CALCIUM LEVEL 8.4 MG/DL (8.8-10.2); CARBON DIOXIDE LEVEL 28 MEQ/L (21-32); CHLORIDE LEVEL 104 MEQ/L (98-107); CREATININE FOR GFR 0.69 MG/DL (0.55-1.02); GLOMERULAR FILTRATION RATE > 60.0 (>39); GLUCOSE, FASTING 268 MG/DL (83-110); POTASSIUM SERUM 4.6 MEQ/L (3.5-5.1); SODIUM LEVEL 139 MEQ/L (136-145); TOTAL PROTEIN 7.4 GM/DL (6.4-8.2)
[2016-09-23] MEDS: NORCO, ANEXSIA 5/325MG TABLET (HYDROcodone/ACETAMINOPHEN) PO PRN ×3 (16:16→23:50)
[2016-09-23] MEDS ORDERED: DRIS50002 PO (16:30)
[2016-09-23] MEDS ORDERED: LEVO75TA34 PO (16:30)
[2016-09-23] MEDS ORDERED: GABA-279 PO (16:30)
[2016-09-23] MEDS ORDERED: ANOR1AER INH (16:31)
[2016-09-23] MEDS ORDERED: PROAAER10 INH (16:31)
[2016-09-23] MEDS ORDERED: ALBUTEROL 90 MCG/ACT 8GM HFA INHALER INH PRN (18:00)
[2016-09-23] MEDS: GABAPENTIN 300 MG CAP PO SCH (20:14)
[2016-09-23 21:40] VITALS: BP 152/88
[2016-09-23 22:00] VITALS: BP 152/88
[2016-09-23] MEDS: IPRATROPIUM 0.5MG/ALBUTEROL 2.5MG INH SOL UD 3ML (DUONEB)(J7620) NEB PRN (22:35)
[2016-09-23] MEDS: ALPRAZolam 0.25 MG TAB PO PRN (22:42)
[2016-09-24] MEDS: LEVOTHYROXINE 75MCG TABLET (0.075MG) PO SCH (06:04)
[2016-09-24] MEDS: NORCO, ANEXSIA 5/325MG TABLET (HYDROcodone/ACETAMINOPHEN) PO PRN ×2 (06:06→20:23)
[2016-09-24] MEDS: ATORVASTATIN 20 MG TAB PO SCH (08:58)
[2016-09-24] MEDS: GABAPENTIN 300 MG CAP PO SCH ×3 (08:58→20:23)
[2016-09-24] MEDS: LEVEMIR (INSULIN DETEMIR) 1 UNITS/0.01ML SC SCH (08:58)
[2016-09-24] MEDS: ALPRAZolam 0.25 MG TAB PO PRN (10:31)
[2016-09-24] MEDS ORDERED: fentaNYL 100 MCG/2 ML INJECTION (J3010) As Ordered ONE (11:14)
[2016-09-24] MEDS ORDERED: MIDAZOLAM INJ 2 MG/2 ML VIAL (J2250) As Ordered ONE (11:14)
[2016-09-24] MEDS ORDERED: HEPARIN 1,000 UNITS/ML 10ML VIAL (FOR RADIOLOGY& DIALYSIS ONLY) As Ordered ONE (11:15)
[2016-09-24] MEDS ORDERED: ISOVUE-300 61% 50ML VIAL (Q9967) As Ordered ONE (11:15)
[2016-09-24] MEDS ORDERED: LIDOCAINE 2% MDV 20 ML VIAL As Ordered ONE (11:40)
[2016-09-24 14:10] VITALS: BP 150/70
[2016-09-24 14:25] VITALS: BP 148/74
[2016-09-24 14:55] VITALS: BP 148/70
[2016-09-24] MEDS ORDERED: PROTAMINE SULF INJ 50 MG/5 ML VIAL (J2720) As Ordered ONE (15:19)
[2016-09-24 15:22] VITALS: BP 156/88
[2016-09-24] MEDS: SODIUM CHLORIDE 0.9% INJ 10 ML SYR IV SCH (17:14)
[2016-09-24 22:00] VITALS: BP 157/85
[2016-09-25] MEDS: ALPRAZolam 0.25 MG TAB PO PRN ×2 (00:18→20:09)
[2016-09-25] MEDS: NORCO, ANEXSIA 5/325MG TABLET (HYDROcodone/ACETAMINOPHEN) PO PRN ×2 (02:27→09:48)
[2016-09-25] MEDS: LEVOTHYROXINE 75MCG TABLET (0.075MG) PO SCH (05:50)
[2016-09-25] MEDS: SODIUM CHLORIDE 0.9% INJ 10 ML SYR IV SCH ×2 (05:50→18:37)
[2016-09-25 06:00] VITALS: BP 155/82
[2016-09-25] MEDS ORDERED: MORPHINE 10 MG/ML 1ML VIAL IV ONE (06:15)
[2016-09-25] MEDS: GABAPENTIN 300 MG CAP PO SCH ×3 (09:47→20:10)
[2016-09-25] MEDS: ATORVASTATIN 20 MG TAB PO SCH (09:47)
[2016-09-25] MEDS: LEVEMIR (INSULIN DETEMIR) 1 UNITS/0.01ML SC SCH (09:50)
[2016-09-25] MEDS ORDERED: MORPHINE 1MG/ML IN 0.9% NACL 100ML IV BAG IV PRN ×2 (11:30→12:00)
[2016-09-25] MEDS ORDERED: NALOXONE INJ 0.4 MG/1 ML VIAL (J2310) IV PRN (11:30)
[2016-09-25] MEDS ORDERED: EPIDURAL/PCA KEYS XX PRN (11:30)
[2016-09-25] MEDS ORDERED: ONDANSETRON 4MG/2ML VIAL (J2405) IV PRN (11:30)
[2016-09-25] MEDS ORDERED: diphenhydrAMINE INJ 50MG/ML VIAL (J1200) IV PRN (11:30)
[2016-09-25] MEDS ORDERED: NALBUPHINE HCL 10 MG/ML AMP (J2300) IV PRN (11:30)
[2016-09-25] MEDS: NS 1,000 ML IV SCH (12:25)
[2016-09-25 14:00] VITALS: BP 177/84
[2016-09-25] MEDS ORDERED: cloNIDine 0.1 MG TAB PO ONE ×2 (15:15→18:45)
--- NOTE | 2016-09-25 19:45 | IPNPDOC ---
Date Seen The patient was seen on 09/24/16. Progress Note SUBJECTIVE: Patient is without complaints. The patient underwent an angioplasty and stenting of her common iliac arteries. OBJECTIVE PHYSICAL EXAMINATION: VITAL SIGNS: Please see below. GENERAL: Awake alert lying in bed comfortably HEENT: Normal CARDIOVASCULAR: Regular rate and rhythm. RESPIRATORY: Clear to auscultation bilaterally. ABDOMINAL: Soft nontender nondistended EXTREMITIES: Right lower extremity shows better perfusion, with improved capillary refill. NEUROLOGICAL: Awake alert oriented x3 PSYCHOLOGICAL: Normal LABORATORY DATA: Please see below. MICROBIOLOGY: Please see below. IMAGING: Patient underwent angiography which showed high-grade stenoses in her common iliac arteries bilaterally which underwent angioplasty and stenting. The right lower extremity and gram showed occlusion of the superficial femoral artery from its origin to the lower thigh with reconstitution of the above-knee popliteal artery via collaterals. DVT prophylaxis ordered?: Patient low risk and ambulatory. ASSESSMENT AND PLAN: This is a 71-year-old white female with right lower extremity ischemia who underwent angiography with reperfusion of the right lower extremity with angioplasty and stenting of the common iliac arteries bilaterally. PROBLEMS: 1. 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 Patient has SFA occlusion on the right lower extremity. If the patient continues to have nonhealing of the right foot ulcers and pain in the right foot she will require a femoral to popliteal artery bypass graft. Plan will be to monitor her for a few days to see if opening the iliac arteries provides enough perfusion to the right lower extremity such that she does not need a bypass. Everett Juarez MD Sep 25, 2016 19:45
--- NOTE | 2016-09-25 19:50 | IPNPDOC ---
Date Seen The patient was seen on 09/25/16. Progress Note SUBJECTIVE: Patient is with complaints of right foot pain not well controlled with her current pain regimen. OBJECTIVE PHYSICAL EXAMINATION: VITAL SIGNS: Please see below. GENERAL: Lying in bed with mild distress HEENT: Normal CARDIOVASCULAR: regular rate and rhythm. RESPIRATORY: Clear to auscultation bilaterally. ABDOMINAL: Soft nontender nondistended EXTREMITIES: Right lower extremity shows significantly improve perfusion. There is some mild swelling and erythema of the foot consistent with reperfusion. NEUROLOGICAL: Awake alert oriented x3 with no focal deficits PSYCHOLOGICAL: Normal LABORATORY DATA: Please see below. MICROBIOLOGY: Please see below. 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 Patient has discomfort in the foot which is not controlled with oral pain meds and good signs of reperfusion. PROBLEMS: 1. right foot pain: Will place patient on a morphine WEB MARKETING ASSISTANT for 24-40 hours for improved pain control of her reperfused right lower extremity. The pain in her foot is secondary to reperfusion and not ischemia. Patient is also on Neurontin. 2. right lower extremity superficial femoral arterial occlusion: At this point patient's foot is well perfused shows good signs of reperfusion. The patient may require right [id number] artery bypass graft but at this point I believe the pain is secondary to reperfusion and not ischemia as she has good cap refill and signs of reperfusion.. VS, I&O, 24H, Fishbone Vital Signs/I&O Vital Signs Date Time Temp Pulse Resp B/P (MAP) Pulse Ox O2 Delivery O2 Flow Rate FiO2 09/25/16 18:37 188/88 09/25/16 09:48 18 09/25/16 06:37 Nasal Cannula 2.0 09/25/16 06:00 98.5 86 98 I&O- Last 24 Hours up to 6 AM 09/25/16 05:59 Intake Total 690 ml Output Total 0 ml Balance 690 ml Laboratory Data 24H LABS Laboratory Tests 2 09/25/16 09:49: Bedside Glucose ([facility] Panel) 328H Everett Juarez MD Sep 25, 2016 19:50
[2016-09-25] MEDS: IPRATROPIUM 0.5MG/ALBUTEROL 2.5MG INH SOL UD 3ML (DUONEB)(J7620) NEB PRN (20:04)
[2016-09-25] MEDS: LISINOPRIL *2.5 MG* TAB PO SCH (20:10)
[2016-09-25 21:10] VITALS: BP 175/80
[2016-09-26] VITALS (7 sets, daily range): BP systolic 123–176; BP diastolic 66–80
[2016-09-26] MEDS: LEVOTHYROXINE 75MCG TABLET (0.075MG) PO SCH (06:00)
[2016-09-26] MEDS: SODIUM CHLORIDE 0.9% INJ 10 ML SYR IV SCH ×2 (06:00→17:09)
[2016-09-26 07:27] LABS: MEAN CORPUSCULAR HGB CONC 31.2 g/dl (32.0-36.5); MEAN CORPUSCULAR VOLUME 89.7 fl (80.0-96.0); RED CELL DISTRIBUTION WIDTH 14.8 % (11.5-14.5); WHITE BLOOD COUNT 5.9 K/mm3 (4.0-10.0)
[2016-09-26 07:41] LABS: ANION GAP 8 MEQ/L (8-16); BLOOD UREA NITROGEN 15 MG/DL (7-18); CALCIUM LEVEL 8.8 MG/DL (8.8-10.2); CARBON DIOXIDE LEVEL 27 MEQ/L (21-32); CHLORIDE LEVEL 105 MEQ/L (98-107); CREATININE FOR GFR 0.67 MG/DL (0.55-1.02); GLOMERULAR FILTRATION RATE > 60.0 (>39); GLUCOSE, FASTING 202 MG/DL (83-110); POTASSIUM SERUM 4.5 MEQ/L (3.5-5.1); SODIUM LEVEL 140 MEQ/L (136-145)
[2016-09-26] MEDS: LISINOPRIL *2.5 MG* TAB PO SCH ×2 (10:09→21:15)
[2016-09-26] MEDS: ATORVASTATIN 20 MG TAB PO SCH (10:09)
[2016-09-26] MEDS: LEVEMIR (INSULIN DETEMIR) 1 UNITS/0.01ML SC SCH (10:10)
[2016-09-26] MEDS: GABAPENTIN 300 MG CAP PO SCH ×3 (10:10→21:14)
[2016-09-26] MEDS: IPRATROPIUM 0.5MG/ALBUTEROL 2.5MG INH SOL UD 3ML (DUONEB)(J7620) NEB PRN (11:07)
[2016-09-26] MEDS: NS 1,000 ML IV SCH (11:51)
--- NOTE | 2016-09-26 22:56 | IPNPDOC ---
Date Seen The patient was seen on 09/26/16. Progress Note SUBJECTIVE: Patient is with complaints of pain in the right foot. Patient states the pain is improved with use of the morphine OUTGOING INSPECTOR. Patient notes that the foot feels different and the pain is different than she had when she first was admitted to the hospital. OBJECTIVE PHYSICAL EXAMINATION: VITAL SIGNS: Please see below. GENERAL: Lying in bed comfortably HEENT: Normal CARDIOVASCULAR: Regular rate and rhythm. RESPIRATORY: Clear to auscultation bilaterally. ABDOMINAL: Soft nontender nondistended EXTREMITIES: Right foot is warm and well perfused with good capillary refill. The right foot is mildly swollen. NEUROLOGICAL: Awake alert oriented x3 with no focal deficits PSYCHOLOGICAL: Normal LABORATORY DATA: Please see below. MICROBIOLOGY: Please see below. DVT prophylaxis ordered?: Patient is ambulatory and low risk for DVT. ASSESSMENT AND PLAN: This is a 71-year-old white female status post bilateral common iliac artery and neuroplasty and stenting as well as aortic angioplasty with improve perfusion to the bilateral lower extremities. Patient also has an occluded right superficial femoral artery with reconstitution of the above-knee popliteal artery and single vessel runoff I the anterior tibial artery into the foot. PROBLEMS: 1. right lower extremity limb ischemia and ulceration of the right foot: Right foot has significantly improved perfusion after undergoing bilateral common iliac artery angioplasty and stenting. Patient does complain of pain in her right foot but this is reperfusion pain and is controlled with the morphine OUTGOING INSPECTOR. 2. hypertension: Patient had hypertension last evening which was treated with clonidine and the patient has been started on lisinopril 2.5 mg by mouth twice a day. VS, I&O, 24H, [facility] Vital Signs/I&O Vital Signs Date Time Temp Pulse Resp B/P (MAP) Pulse Ox O2 Delivery O2 Flow Rate FiO2 09/26/16 21:17 99.3 92 20 176/80 (112) 90 Nasal Cannula 2.0 I&O- Last 24 Hours up to 6 AM 09/26/16 06:00 Intake Total 3338 ml Output Total 0 ml Balance 3338 ml Laboratory Data 24H LABS Laboratory Tests 2 09/26/16 07:00: Anion Gap 8, Glomerular Filtration Rate > 60.0, Blood Urea Nitrogen 15, Creatinine 0.67, Sodium Level 140, Potassium Level 4.5, Chloride Level 105, Carbon Dioxide Level 27, Calcium Level 8.8 CBC/BMP Laboratory Tests 09/26/16 07:00 Red Blood Count 2.53 L, Mean Corpuscular Volume 89.7, Mean Corpuscular Hemoglobin 28.0, Mean Corpuscular Hemoglobin Concent 31.2 L, Red Cell Distribution Width 14.8 H, Calcium Level 8.8 Everett Juarez MD Sep 26, 2016 22:56
[2016-09-27] VITALS (10 sets, daily range): BP systolic 141–220; BP diastolic 72–102; O2SAT 95
[2016-09-27] MEDS: IPRATROPIUM 0.5MG/ALBUTEROL 2.5MG INH SOL UD 3ML (DUONEB)(J7620) NEB PRN ×4 (04:31→23:20)
[2016-09-27] MEDS: LEVOTHYROXINE 75MCG TABLET (0.075MG) PO SCH (05:36)
[2016-09-27 05:46] LABS: MEAN CORPUSCULAR HEMOGLOBIN 28.8 pg (27.0-33.0); MEAN CORPUSCULAR HGB CONC 32.1 g/dl (32.0-36.5); MEAN CORPUSCULAR VOLUME 89.8 fl (80.0-96.0); RED CELL DISTRIBUTION WIDTH 14.8 % (11.5-14.5); WHITE BLOOD COUNT 6.3 K/mm3 (4.0-10.0)
[2016-09-27 06:02] LABS: ANION GAP 9 MEQ/L (8-16); BLOOD UREA NITROGEN 17 MG/DL (7-18); CALCIUM LEVEL 8.8 MG/DL (8.8-10.2); CARBON DIOXIDE LEVEL 27 MEQ/L (21-32); CHLORIDE LEVEL 104 MEQ/L (98-107); CREATININE FOR GFR 0.65 MG/DL (0.55-1.02); GLOMERULAR FILTRATION RATE > 60.0 (>39); GLUCOSE, FASTING 203 MG/DL (83-110); POTASSIUM SERUM 4.3 MEQ/L (3.5-5.1); SODIUM LEVEL 140 MEQ/L (136-145)
[2016-09-27] MEDS: LEVEMIR (INSULIN DETEMIR) 1 UNITS/0.01ML SC SCH (09:56)
[2016-09-27] MEDS: SODIUM CHLORIDE 0.9% INJ 10 ML SYR IV SCH ×2 (09:57→17:05)
[2016-09-27] MEDS: ATORVASTATIN 20 MG TAB PO SCH (09:58)
[2016-09-27] MEDS: GABAPENTIN 300 MG CAP PO SCH ×3 (09:58→21:23)
[2016-09-27] MEDS: LISINOPRIL *2.5 MG* TAB PO SCH ×2 (09:58→21:24)
[2016-09-27] MEDS: NS 1,000 ML IV SCH (13:13)
[2016-09-27] MEDS: ALPRAZolam 0.25 MG TAB PO PRN ×2 (14:59→23:01)
[2016-09-28] VITALS (26 sets, daily range): BP systolic 142–230; BP diastolic 68–118; O2SAT 86–99
[2016-09-28] MEDS ORDERED: cloNIDine 0.1 MG TAB PO ONE
[2016-09-28 01:18] LABS: ABG BASE EXCESS 2.4 (-2.0-2.0); ABG HCO3 28.5 MEQ/L (22.0-26.0); ABG PARTIAL PRESSURE O2 61.7 mmHg (75.0-100.0); ABG STANDARD HCO3 26.5 MEQ/L (22.0-26.0); ABG TOTAL CO2 30.2 MEQ/L (23.0-31.0); ABG pH (ARTERIAL) 7.349 UNITS (7.350-7.450)
--- NOTE | 2016-09-28 01:40 | REPUSA ---
CLINICAL HISTORY: Increased shortness of breath. COMMENTS: Single view of the chest reveals multiloculated right pleural effusion. The largest lesion is right a pical. The heart is mildly enlarged. Mild central pulmonary venous congestion. Left PICC line is in g ood position with its tip in the superior vena cava. IMPRESSION: Loculated right pleural effusion. Cardiomegaly. Mild congestion. Thank you for your kind referral of this patient.
[2016-09-28] MEDS: NORCO, ANEXSIA 5/325MG TABLET (HYDROcodone/ACETAMINOPHEN) PO PRN ×3 (01:50→14:00)
[2016-09-28] MEDS ORDERED: FUROSEMIDE 20 MG/2 ML VIAL (J1940) IV ONE (02:15)
[2016-09-28] MEDS: LEVOTHYROXINE 75MCG TABLET (0.075MG) PO SCH (05:37)
[2016-09-28] MEDS: SODIUM CHLORIDE 0.9% INJ 10 ML SYR IV SCH ×2 (05:38→18:58)
[2016-09-28] MEDS: ATORVASTATIN 20 MG TAB PO SCH (09:48)
[2016-09-28] MEDS: GABAPENTIN 300 MG CAP PO SCH ×3 (09:49→21:21)
[2016-09-28] MEDS: LISINOPRIL *2.5 MG* TAB PO SCH ×2 (09:52→21:21)
[2016-09-28] MEDS: LEVEMIR (INSULIN DETEMIR) 1 UNITS/0.01ML SC SCH (09:53)
[2016-09-28] MEDS ORDERED: GLUCOSE 4 GM CHEW TABLET PO PRN (13:00)
[2016-09-28] MEDS ORDERED: GLUCAGON FOR INJ 1 MG VIAL (J1610) SC PRN (13:00)
[2016-09-28] MEDS ORDERED: DEXTROSE 50% 50 ML SYRINGE IV PRN (13:00)
[2016-09-28] MEDS: HumaLOG INSULIN (NovoLOG) PER UNIT SC SCH ×3 (13:57→21:29)
[2016-09-28] MEDS: IPRATROPIUM 0.5MG/ALBUTEROL 2.5MG INH SOL UD 3ML (DUONEB)(J7620) NEB PRN ×2 (14:56→20:15)
--- NOTE | 2016-09-28 19:30 | IPNPDOC ---
Date Seen The patient was seen on 09/27/16. Progress Note SUBJECTIVE: Patient is with complaints of right foot pain and swelling. OBJECTIVE PHYSICAL EXAMINATION: VITAL SIGNS: Please see below. GENERAL: Lying in bed in no apparent distress HEENT: Normal CARDIOVASCULAR: Regular rate and rhythm. RESPIRATORY: Decreased breath sounds at the bases. ABDOMINAL: Soft nontender nondistended EXTREMITIES: Right lower extremity shows better perfusion with good Refill of the toes ulcers are stable. NEUROLOGICAL: Awake alert oriented x3 PSYCHOLOGICAL: Normal LABORATORY DATA: Please see below. MICROBIOLOGY: Please see below. DVT prophylaxis ordered?: Patient is ambulatory and low risk ASSESSMENT AND PLAN: This is a 71-year-old female with right lower extremity pain and arterial atherosclerotic disease in the right superficial femoral artery. Patient has undergone successful stenting of her common iliac arteries with better perfusion of both lower extremities. PROBLEMS: 1. right lower extremity arterial atherosclerotic disease: Patient is better perfusion of the right lower extremity but continues with pain which is neuropathic secondary to reperfusion. 2. pain in the right lower extremity: Pain is controlled on a morphine EXPLOSION WELDER patient will be transitioned to oral pain meds. VS, I&O, 24H, [facility] Vital Signs/I&O Vital Signs Date Time Temp Pulse Resp B/P (MAP) Pulse Ox O2 Delivery O2 Flow Rate FiO2 09/28/16 16:00 97.8 103 18 142/82 (102) 92 Nasal Cannula 2.0 09/28/16 14:30 90 I&O- Last 24 Hours up to 6 AM 09/28/16 06:00 Intake Total 1300 ml Output Total 1650 ml Balance -350 ml Laboratory Data 24H LABS Laboratory Tests 2 09/28/16 01:08: Blood Gas Bicarbonate Standard 26.5H, Arterial Blood pH 7.349L, Arterial Blood Partial Pressure CO2 53.0H, Arterial Blood Partial Pressure O2 61.7L, Arterial Blood Total CO2 30.2, Arterial Blood HCO3 28.5H, Arterial Blood Base Excess 2.4H , Arterial Blood Oxygen Saturation 86.9L, Arterial Blood Gas Puncture Site LT RADIAL 09/28/16 12:18: Bedside Glucose (Misc Panel) 353H 09/28/16 16:41: Bedside Glucose (Misc Panel) 77L Everett Juarez MD Sep 28, 2016 19:30
--- NOTE | 2016-09-28 19:37 | IPNPDOC ---
Date Seen The patient was seen on 09/28/16. Progress Note SUBJECTIVE: Patient is a complaining of pain and swelling in the right foot. Patient had decreased oxygen saturation requiring transfer to the PCU last evening. Patient is breathing and oxygenating better now and has no complaints of shortness of breath or chest pain. OBJECTIVE PHYSICAL EXAMINATION: VITAL SIGNS: Please see below. GENERAL: Lying in bed comfortably HEENT: Normal CARDIOVASCULAR: regular rate and rhythm. RESPIRATORY: Clear to auscultation bilaterally. ABDOMINAL: Soft nontender nondistended EXTREMITIES: Right lower extremity is well-perfused ulcers are dry and stable NEUROLOGICAL: Awake alert oriented x3 PSYCHOLOGICAL: Normal LABORATORY DATA: Please see below. MICROBIOLOGY: Please see below. DVT prophylaxis ordered?: Patient is a bit oriented and low risk ASSESSMENT AND PLAN: This is a 71-year-old female with right lower extremity rest pain and critical limb ischemia who was found to have aortoiliac and superficial femoral arterial atherosclerotic occlusive disease. Patient underwent and plastic and stenting of the iliac arteries bilaterally with improve perfusion to her right lower extremity. Patient now has pain in the right lower extremity which is only moderately well controlled. Patient also has a lung mass and is a long-time tobacco user and has improved oxygenation and breathing today but did have an episode last evening of some shortness of breath and desaturation which we spotted well to Paul. PROBLEMS: 1. right lower extremity atherosclerotic arterial occlusive disease and pain: The right lower extremity is better perfused after undergoing iliac artery and plastic and stenting. Patient does now have reperfusion swelling and pain which is only moderately well controlled. Patient will be started on OxyContin 10 mg by mouth every 12 hours. 2. lung mass and desaturation: Patient is stable at this time and will be monitored closely. 3. diabetes mellitus: Kay is on her home insulin regimen but continues to have increased fingersticks and will also be started on a sliding scale coverage for better glucose control. VS, I&O, 24H, [facility] Vital Signs/I&O Vital Signs Date Time Temp Pulse Resp B/P (MAP) Pulse Ox O2 Delivery O2 Flow Rate FiO2 09/28/16 16:00 97.8 103 18 142/82 (102) 92 Nasal Cannula 2.0 09/28/16 14:30 90 I&O- Last 24 Hours up to 6 AM 09/28/16 06:00 Intake Total 1300 ml Output Total 1650 ml Balance -350 ml Laboratory Data 24H LABS Laboratory Tests 2 09/28/16 01:08: Blood Gas Bicarbonate Standard 26.5H, Arterial Blood pH 7.349L, Arterial Blood Partial Pressure CO2 53.0H, Arterial Blood Partial Pressure O2 61.7L, Arterial Blood Total CO2 30.2, Arterial Blood HCO3 28.5H, Arterial Blood Base Excess 2.4H , Arterial Blood Oxygen Saturation 86.9L, Arterial Blood Gas Puncture Site LT RADIAL 09/28/16 12:18: Bedside Glucose (Misc Panel) 353H 09/28/16 16:41: Bedside Glucose (Misc Panel) 77L Everett Juarez MD Sep 28, 2016 19:37
[2016-09-28] MEDS: oxyCODONE 10 MG CR TAB PO SCH (20:04)
[2016-09-28] MEDS: ALPRAZolam 0.25 MG TAB PO PRN (21:20)
[2016-09-29] VITALS (26 sets, daily range): BP systolic 135–165; BP diastolic 68–90; O2SAT 79–97
[2016-09-29] MEDS: NORCO, ANEXSIA 5/325MG TABLET (HYDROcodone/ACETAMINOPHEN) PO PRN ×5 (00:10→18:06)
[2016-09-29] MEDS: LEVOTHYROXINE 75MCG TABLET (0.075MG) PO SCH (05:30)
[2016-09-29] MEDS: SODIUM CHLORIDE 0.9% INJ 10 ML SYR IV SCH ×2 (05:34→18:08)
[2016-09-29] MEDS: HumaLOG INSULIN (NovoLOG) PER UNIT SC SCH ×4 (07:30→21:52)
[2016-09-29] MEDS: LEVEMIR (INSULIN DETEMIR) 1 UNITS/0.01ML SC SCH (09:00)
[2016-09-29] MEDS: GABAPENTIN 300 MG CAP PO SCH ×3 (09:07→21:51)
[2016-09-29] MEDS: oxyCODONE 10 MG CR TAB PO SCH ×2 (09:07→21:51)
[2016-09-29] MEDS: LISINOPRIL *2.5 MG* TAB PO SCH ×2 (09:10→21:53)
[2016-09-29] MEDS: ATORVASTATIN 20 MG TAB PO SCH (09:12)
[2016-09-29] MEDS: IPRATROPIUM 0.5MG/ALBUTEROL 2.5MG INH SOL UD 3ML (DUONEB)(J7620) NEB PRN ×2 (10:35→22:59)
[2016-09-29] MEDS: ALPRAZolam 0.25 MG TAB PO PRN (23:01)
[2016-09-30] VITALS (20 sets, daily range): BP systolic 148–167; BP diastolic 66–85; O2SAT 84–98
[2016-09-30] MEDS: SODIUM CHLORIDE 0.9% INJ 10 ML SYR IV SCH ×2 (05:45→19:51)
[2016-09-30] MEDS: LEVOTHYROXINE 75MCG TABLET (0.075MG) PO SCH (05:45)
[2016-09-30] MEDS: IPRATROPIUM 0.5MG/ALBUTEROL 2.5MG INH SOL UD 3ML (DUONEB)(J7620) NEB PRN (07:25)
[2016-09-30] MEDS: HumaLOG INSULIN (NovoLOG) PER UNIT SC SCH ×4 (07:45→20:47)
[2016-09-30] MEDS: LEVEMIR (INSULIN DETEMIR) 1 UNITS/0.01ML SC SCH (09:05)
[2016-09-30] MEDS: GABAPENTIN 300 MG CAP PO SCH ×4 (09:06→21:00)
[2016-09-30] MEDS: LISINOPRIL *2.5 MG* TAB PO SCH ×3 (09:06→21:00)
[2016-09-30] MEDS: ATORVASTATIN 20 MG TAB PO SCH (09:07)
[2016-09-30] MEDS: oxyCODONE 10 MG CR TAB PO SCH ×3 (09:07→21:17)
[2016-09-30] MEDS: ALPRAZolam 0.25 MG TAB PO PRN ×2 (10:50→21:17)
[2016-09-30] MEDS: ALBUTEROL SULFATE 2.5 MG/0.5 ML INH NEB SOLN NEB SCH ×3 (16:49→23:05)
[2016-09-30] MEDS: methylPREDNISolone INJ 125 MG/2 ML VIAL (J2930) IV SCH ×2 (17:15→23:50)
[2016-09-30] MEDS: NORCO, ANEXSIA 5/325MG TABLET (HYDROcodone/ACETAMINOPHEN) PO PRN ×2 (17:48→19:51)
--- NOTE | 2016-09-30 17:50 | REP ---
CT chest without contrast: History: Right upper lung mass. Comparison chest CT study 09/17/2016. CT findings: There are small bilateral pleural effusions. These are new when compared with the 09/17/2016 study. Fairly prominent vascular calcification is again seen. There is a left-sided PICC line with its tip in the superior vena cava. The large area of consolidation containing air bronchograms in the right upper lobe is again seen. This is essentially unchanged from the most recent prior study of 09/17/2016. No new infiltrate is seen. No new mass lesion is seen. There is fairly bulky mediastinal lymphadenopathy. Several of these lymph nodes appears slightly larger than on the most recent prior study of 09/17/2016. There is a precarinal lymph node which today measures 19 mm in short axis dimension, 13 mm on 09/17/2016. An aorticopulmonary window region lymph node today measures 12 mm in short axis dimension. This measured 8 mm previously. A right paratracheal lymph node has increased from 16 mm to 22 mm in anteroposterior span. Impression: New small bilateral pleural effusions. Progressive mediastinal lymphadenopathy. Stable large area of consolidation right upper lobe. Signed by Shane Sumner MD 10/01/2016 09:53 A
[2016-09-30] MEDS: CEFTAROLINE FOSAMIL 600 MG in D5W MINI-BAG PLUS 50 ML IV SCH (18:41)
--- NOTE | 2016-09-30 20:04 | IPNPDOC ---
Date Seen The patient was seen on 09/29/16. Progress Note SUBJECTIVE: Patient is with continued complaints of right foot pain. OBJECTIVE PHYSICAL EXAMINATION: VITAL SIGNS: Please see below. GENERAL: Lying in bed comfortably HEENT: Normal CARDIOVASCULAR: Regular rate and rhythm. RESPIRATORY: Clear to auscultation bilaterally. ABDOMINAL: Soft nontender nondistended EXTREMITIES: Right lower extremity shows less than 3 seconds For a refill and healing of ulcers. There are scheme ischemic changes of the right second and fifth toes which are stable NEUROLOGICAL: Alert oriented x3 PSYCHOLOGICAL: Normal LABORATORY DATA: Please see below. MICROBIOLOGY: Please see below. ASSESSMENT AND PLAN: This is a 71-year-old female with right lower extremity ischemia who underwent angioplasty and stenting of her bilateral common iliac arteries. The patient is better perfusion of the right foot with neuropathic pain post reperfusion. PROBLEMS: 1. right lower extremity ischemia and occluded superficial femoral artery: Patient's foot is better perfused but the patient continues to have pain which I believe is neuropathic in nature. Plan will be to continue to control her pain with narcotics and proceed with physical therapy. If the pain continues to be problematic and there is no improvement in the ulcers in the right foot the patient may require a femoral popliteal artery bypass graft. The patient states that he does feel significant difference in her foot since undergoing the angioplasty and stenting of her iliac arteries and at this point does not want to proceed with any other intervention and give this as much time as possible to see how her for response. VS, I&O, 24H, William Vital Signs/I&O Vital Signs Date Time Temp Pulse Resp B/P (MAP) Pulse Ox O2 Delivery O2 Flow Rate FiO2 09/30/16 19:51 19 Nasal Cannula 1.0 09/30/16 18:00 93 09/30/16 16:00 97.4 106 148/70 (96) 09/29/16 21:51 90 I&O- Last 24 Hours up to 6 AM 09/30/16 06:00 Intake Total 1480 ml Output Total 1150 ml Balance 330 ml Laboratory Data 24H LABS Laboratory Tests 2 09/29/16 20:43: Bedside Glucose (Misc Panel) 168H 09/30/16 07:32: Bedside Glucose (Misc Panel) 152H 09/30/16 11:40: Bedside Glucose (Misc Panel) 256H 09/30/16 17:02: Bedside Glucose (Misc Panel) 172H Microbiology Microbiology 09/30/16 Gram Stain, Received Pending 09/30/16 Sputum Culture, Received Pending Everett Juarez MD Sep 30, 2016 20:04
--- NOTE | 2016-09-30 20:13 | IPNPDOC ---
Date Seen The patient was seen on 09/30/16. Progress Note SUBJECTIVE: Patient is still complaining of right foot pain but does note that the pain is improving and she also notes that her foot is better perfused and believes the ulcers are showing signs of healing. OBJECTIVE PHYSICAL EXAMINATION: VITAL SIGNS: Please see below. GENERAL: Lying in bed comfortably HEENT: Normal CARDIOVASCULAR: Regular rate and rhythm. RESPIRATORY: Decreased breath sounds at the bases. ABDOMINAL: Soft nontender nondistended EXTREMITIES: Right foot shows less than 3 seconds capillary refill in the ulcers are dry and showing signs of healing. The right second and fifth toe show ischemic changes which are stable. NEUROLOGICAL: Awake alert oriented x3 PSYCHOLOGICAL: Normal LABORATORY DATA: Please see below. MICROBIOLOGY: Please see below. ASSESSMENT AND PLAN: This is a 71-year-old female with critical limb ischemia of the right lower extremity who underwent angioplasty and stenting of her iliac arteries bilaterally. The patient is better perfusion of her right foot but continues with pain in the right foot which I believe is neuropathic in nature. The patient does have occluded right superficial femoral artery. I discussed the option of a femoral-popliteal artery bypass graft with the patient , but she feels that her foot is improved at this time does not wish to proceed with any other intervention I continue to allow her foot to heal with the improved blood flow established with the iliac artery and to plasty and stenting. PROBLEMS: 1. right lower extremity critical limb ischemia and pain: Patient's foot shows significant improvement in perfusion but the patient continues to have pain which I believe is related to reperfusion and neuropathic pain rather than acute limb ischemia. Patient will begin with aggressive physical therapy to determine if she is able to proceed with ambulating and going home, this will also allow us to determine whether she needs further surgery with bypass grafting. 2. lung mass: Prior to being admitted for her right lower limb ischemia the patient was in the process of being worked up for a lung mass. Patient had seen Dr. Erickson as an outpatient and I will Dr. Erickson to see the patient for further evaluation and treatment. VS, I&O, 24H, Fishbone Vital Signs/I&O Vital Signs Date Time Temp Pulse Resp B/P (MAP) Pulse Ox O2 Delivery O2 Flow Rate FiO2 09/30/16 19:51 19 Nasal Cannula 1.0 09/30/16 18:00 93 09/30/16 16:00 97.4 106 148/70 (96) 09/29/16 21:51 90 I&O- Last 24 Hours up to 6 AM 09/30/16 06:00 Intake Total 1480 ml Output Total 1150 ml Balance 330 ml Laboratory Data 24H LABS Laboratory Tests 2 09/29/16 20:43: Bedside Glucose (Misc Panel) 168H 09/30/16 07:32: Bedside Glucose (Misc Panel) 152H 09/30/16 11:40: Bedside Glucose (Misc Panel) 256H 09/30/16 17:02: Bedside Glucose (Misc Panel) 172H Microbiology Microbiology 09/30/16 Gram Stain, Received Pending 09/30/16 Sputum Culture, Received Pending Everett Juarez MD Sep 30, 2016 20:13
[2016-10-01] VITALS (26 sets, daily range): BP systolic 140–164; BP diastolic 52–90; O2SAT 83–100
[2016-10-01] MEDS: ALBUTEROL SULFATE 2.5 MG/0.5 ML INH NEB SOLN NEB SCH ×5 (03:33→23:22)
[2016-10-01] MEDS: methylPREDNISolone INJ 125 MG/2 ML VIAL (J2930) IV SCH (05:37)
[2016-10-01] MEDS: SODIUM CHLORIDE 0.9% INJ 10 ML SYR IV SCH ×2 (05:38→17:55)
[2016-10-01] MEDS: LEVOTHYROXINE 75MCG TABLET (0.075MG) PO SCH (05:38)
[2016-10-01] MEDS: CEFTAROLINE FOSAMIL 600 MG in D5W MINI-BAG PLUS 50 ML IV SCH ×2 (05:39→17:54)
[2016-10-01] MEDS: HumaLOG INSULIN (NovoLOG) PER UNIT SC SCH ×4 (06:55→20:53)
[2016-10-01] MEDS ORDERED: HumaLOG INSULIN (NovoLOG) PER UNIT SC ONE ×2 (07:00→08:45)
[2016-10-01] MEDS: ATORVASTATIN 20 MG TAB PO SCH (09:18)
[2016-10-01] MEDS: GABAPENTIN 300 MG CAP PO SCH ×3 (09:18→20:51)
[2016-10-01] MEDS: oxyCODONE 10 MG CR TAB PO SCH ×2 (09:20→20:51)
[2016-10-01] MEDS: LISINOPRIL *2.5 MG* TAB PO SCH ×2 (09:20→20:51)
[2016-10-01] MEDS ORDERED: predniSONE 10 MG TAB PO ONE (12:00)
[2016-10-01] MEDS ORDERED: fentaNYL 100 MCG/2 ML INJECTION (J3010) As Ordered ONE (12:52)
[2016-10-01] MEDS ORDERED: MIDAZOLAM INJ 2 MG/2 ML VIAL (J2250) As Ordered ONE (12:52)
[2016-10-01] MEDS ORDERED: PROPOFOL 200 MG/20 ML VIAL As Ordered ONE (12:52)
[2016-10-01] MEDS ORDERED: ROCURONIUM BROMIDE 50 MG/5 ML VIAL/SYRINGE As Ordered ONE (12:52)
[2016-10-01] MEDS ORDERED: LIDOCAINE 2% INJ 100 MG/5 ML SDV (FOR ANES.) As Ordered ONE (12:52)
[2016-10-01] MEDS ORDERED: EPINEPHrine 1MG/10ML SYRINGE 1.5IN As Ordered ONE (12:56)
[2016-10-01] MEDS ORDERED: LIDOCAINE VISCOUS 2% SOLN 15ML UDC As Ordered ONE (12:56)
[2016-10-01] MEDS ORDERED: dexameTHASONE 4 MG/ML 1ML VIAL (J1100) As Ordered ONE (13:13)
[2016-10-01] MEDS ORDERED: SEVOFLURANE INHAL SOLN 250 ML BTL As Ordered ONE (13:13)
[2016-10-01] MEDS ORDERED: ONDANSETRON 4MG/2ML VIAL (J2405) As Ordered ONE (13:13)
[2016-10-01] MEDS ORDERED: ePHEDrine SULFATE 25 MG/5 ML(5MG/ML) SYRINGE As Ordered ONE (14:19)
--- NOTE | 2016-10-01 14:25 | CR ---
DATE OF CONSULTATION: 09/30/2016 REQUESTING PHYSICIAN: Dr. Juarez REASON FOR CONSULTATION: Right lung mass and desaturations. HISTORY OF PRESENT ILLNESS: Ms. Ponce is a 71-year-old female with a history of chronic obstructive pulmonary disease (COPD) on oxygen at home, depression, smoking 180 pack years, diabetic neuropathy, ischemic of the lower limbs, history of Streptococcus pneumoniae with complication of empyema on the right side of the lung found in 2016 and sepsis due to bacteria due to the empyema. The patient was seen today for adnormal result on her ct of the left lungs. The patient looks like she is in no acute distress.The patient had a nasal cannula in her nose and was able to talk with me about her current illness. The patient states that since her last visit with Dr. Erickson last year in 2015, the patient has been smoking about two packs a day for the past 1 year. Since then she has noticed a chronic cough that has been more consistent recently. She has also noticed that her chronic cough is more productive in manner in the last couple of weeks. The patient states that her shortness of breath originally was only at the nighttime which would wake her up from her sleep, but now recently she has noticed her shortness of breath has progressed throughout the day while at rest lying on her bed and now in the morning time. The patient denies having any chest pain, fevers, chills, night sweats, diarrhea , nausea, vomiting. Denies any recent diarrheal episodes. The patient admits to having issues with palpitations when she is having an anxiety attack, which will exacerbate her shortness of breath. The patient states that since admission that she has not smoked any cigarettes. The patient understands that the consultation for Dr. Erickson was for her abnormal CT of the lung results that were done two days ago. She believes that she either has a right lung cancer or she has an infection. She does not know more than that. The patient state that she does get anxious and short of breath thinking of the fact that she might have lung cancer and taking Xanax daily does help keep her shortness of breath in check. The patient denies having any weight gain or weight loss. She does have a history of malnutrition and states that she has a decrease of appetite currently because of " it being hospital food". PHYSICAL EXAMINATION: Vitals: Temperature 98.2, pulse 101, respiratory rate 20, blood pressure 154/66, pulse oximetry of 93. She is on nasal cannula of 1 liter of oxygen. GENERAL: The patient does not look in any acute distress. Is lying comfortably in the bed in the right decubitus position. The patient does have nasal cannula in her nose. She is accompanied by her neighbor, who is sitting by bedside. CARDIOVASCULAR: The patient's heart rate was tachycardic rate and regular rhythm. Distant s1 and s2 sounds. no gallops, rubs or murmurs appreciated. LUNGS: : Right upper lobe diffuse rhochi and end-expiratory wheeze is appreciated. . All other lung ferrell are clear but decreased breath sounds. There is no accessory muscle use. ABDOMEN: positive bowl sounds, non distended non tender, with no organmegaly appreicated. LABORATORY DATA: Latest laboratories are from 09/27/2016. WBC 6.3, hemoglobin 7.4, hematocrit 23.1, platelet count of 151. Chemistries were from 09/27/2016 and sodium 140, potassium 4.3, chloride 104, carbon dioxide 27, BUN of 17, creatinine 0.65, fasting glucose is 230. Her blood gas from 09/28/2016 showed an ABG pH of 7.34, ABG PCO2 of 53.0, ABG HCO3 of 28.5. The patient had a portable chest x-ray done on 09/28/2016 for history of increased shortness of breath. It had an impression of loculated right pleural effusion, cardiomegaly, mild congestion. CT Chest without contrast showed new small bilateral pleural effusions. Progressive mediastinal lymphadenopathy. Stable large area of consolidation right upper lobe ASSESSMENT: Right upper lung mass, differential is infectious versus inflammatory versus malignancy. Likely due to the duration a higher chance of malignancy. PLAN: Repeat the CT without contrast of the chest. Pending those results, we will be seeing if we can schedule a bronchoscopy for this patient. We will also start the patient on doxycline and 10 mg prednisone for the productive cough. Respiratory therapy will continue to work with the patient and add the acapella device to help clear up her lungs. We will continue to manage the patient and reassess her daily. My preceptor for this patient encounter was Dr. Erickson. The preceptor was physically present in the room during the encounter and was fully available. As needed, all aspects of the patient interview, examination, medical decision making process, and medical care plan development were reviewed and approved by the preceptor. The preceptor is aware and concurs with the plan as stated in the body of this note and will attest to such by her cosignature. I, Jordan Erickson, agree with the above assessment and plan. CHRISD
[2016-10-01 15:01] LABS: BAL DIFF IF INDICATED? NO (NO)
--- NOTE | 2016-10-01 15:14 | RO ---
DATE OF PROCEDURE: 10/01/2016 PREOPERATIVE DIAGNOSES: Abnormal chest CT, right upper lobe infiltrate/possible mass. POSTPROCEDURE DIAGNOSES: Abnormal chest CT, right upper lobe infiltrate/possible mass. FINDINGS: No endobronchial lesions. PROCEDURE: Bronchoscopy with fluoroscopy and transbronchial biopsies. PROCEDURALIST: Dr. Erickson. ANESTHESIA: General. ESTIMATED BLOOD LOSS: 5 to 10 mL. DRAINS: No drains. SPECIMENS OBTAINED: 1. Bronchioalveolar lavage right upper lobe. 2. Transbronchial biopsies right upper lobe. DESCRIPTION OF PROCEDURE: After informed consent was reviewed with the patient this morning at bedside, all questions were answered. She was brought back to operating room #3. Time-out is performed with two patient identifiers, identifying correct site and correct procedure. Anesthesia was then initiated. Case was then handed over to me. Time-out again was performed with two patient identifiers, identifying correct site, correct procedure. The bronchoscope was then inserted through the endotracheal tube with Cetacaine spray. All airways were suctioned of mucus. There was especially large amount of mucus in the right upper lobe. After all airways were suctioned, they were inspected. Trachea was midline. Jannette was sharp. Right and left mainstem bronchus was normal. LB 1-10 was normal without endobronchial lesions RB 1-10 was normal without endobronchial lesions. Bronchoalveolar lavage was then performed of the posterior segment of the right upper lobe. After this, transbronchial biopsies of the posterior segment, apical segment and the most lateral anterior segment of the right upper lobe was performed. These were placed in formalin. The posterior segment had some bleeding; therefore suction was used to tamponade the area. Despite the tamponading, there was still significant amount of blood; therefore epinephrine was used at 1 mL. After epinephrine administered, there was no further hemorrhage. All airways were suctioned. Hemostasis was assured and bronchoscope was removed. There were no observed complications.
[2016-10-01] MEDS ORDERED: PERCOCET 5MG/325MG TAB PO PRN (15:15)
[2016-10-01] MEDS ORDERED: ONDANSETRON 4MG/2ML VIAL (J2405) IV PRN (15:15)
[2016-10-01] MEDS ORDERED: LR 1,000 ML IV SCH (15:15)
[2016-10-01] MEDS ORDERED: fentaNYL 100 MCG/2 ML INJECTION (J3010) IV PRN (15:15)
--- NOTE | 2016-10-01 15:35 | REP ---
PORTABLE CHEST, ONE VIEW: HISTORY: Bronchoscopy. COMPARISON: 09/28/2016 Increased density is present in the right upper lobe consistent with an infiltrate that is unchanged compared to the previous study. There is blunting of the right costophrenic angle due to a small pleural effusion. The left lung is clear. The heart is normal in size. The pulmonary vasculature is normal in appearance. A PICC line is present in the region of the right atrium. IMPRESSION: 1. Right upper lobe infiltrate unchanged compared to the previous study. 2. Small right pleural effusion unchanged compared to the previous study. Signed by Giacomo Worrell MD 10/01/2016 03:43 P
[2016-10-01] MEDS ORDERED: PERCOCET 5MG/325MG TAB As Ordered ONE (15:38)
[2016-10-01 18:32] LABS: BASO % 0.1 % (0.0-1.0); EOS % 0.1 % (0.0-3.0); LARGE UNSTAINED CELL # 0.1 K/mm3 (0.0-0.4); LARGE UNSTAINED CELL % 0.9 % (0.0-4.0); LYMPH # 0.5 K/mm3 (1.5-4.5); LYMPH % 4.2 % (24.0-44.0); MEAN CORPUSCULAR HGB CONC 30.7 g/dl (32.0-36.5); MEAN CORPUSCULAR VOLUME 91.3 fl (80.0-96.0); MONO # 0.4 K/mm3 (0.0-0.8); MONO % 3.9 % (0.0-5.0); NEUTROPHILS # 8.2 K/mm3 (1.8-7.7); NEUTROPHILS % 90.8 % (36.0-66.0); PLATELET COUNT, AUTOMATED 184 k/mm3 (150-450); RED CELL DISTRIBUTION WIDTH 15.4 % (11.5-14.5)
[2016-10-01 18:52] LABS: ALBUMIN 2.7 GM/DL (3.2-5.2); ALBUMIN/GLOBULIN RATIO 0.59 (1.00-1.93); ALKALINE PHOSPHATASE 97 U/L (45-117); ALT/SGPT 24 U/L (12-78); ANION GAP 9 MEQ/L (8-16); AST/SGOT 28 U/L (15-37); BILIRUBIN,TOTAL 0.4 MG/DL (0.2-1.0); BLOOD UREA NITROGEN 32 MG/DL (7-18); CALCIUM LEVEL 9.4 MG/DL (8.8-10.2); CARBON DIOXIDE LEVEL 26 MEQ/L (21-32); CHLORIDE LEVEL 102 MEQ/L (98-107); CREATININE FOR GFR 0.77 MG/DL (0.55-1.02); GLOMERULAR FILTRATION RATE > 60.0 (>39); GLUCOSE, FASTING 239 MG/DL (83-110); POTASSIUM SERUM 4.5 MEQ/L (3.5-5.1); SODIUM LEVEL 137 MEQ/L (136-145); TOTAL PROTEIN 7.3 GM/DL (6.4-8.2)
[2016-10-01 21:59] LABS: ADD MORPHOLOGY? YES
[2016-10-01 22:00] LABS: ANISOCYTOSIS 1+; HYPOCHROMASIA 1+
[2016-10-01 22:01] LABS: POLYCHROMASIA 1+
--- NOTE | 2016-10-01 22:24 | IPNPDOC ---
Date Seen The patient was seen on 10/01/16. Progress Note SUBJECTIVE: Patient is without complaints. Patient underwent bronchoscopy with biopsies and bronchial alveolar lavage today without difficulty. Patient states her right foot has less pain and less swelling today. OBJECTIVE PHYSICAL EXAMINATION: VITAL SIGNS: Please see below. GENERAL: Lying in bed comfortably HEENT: Normal CARDIOVASCULAR: Regular rate and rhythm. RESPIRATORY: Decreased breath sounds at the bases. ABDOMINAL: Soft nontender nondistended EXTREMITIES: Right lower extremity is well-perfused ischemic. Portions of the right second and fifth toe are unchanged. Dry ulcerations on the toes and foot are stable NEUROLOGICAL: Awake, alert and oriented x3 with no focal deficits PSYCHOLOGICAL: Normal LABORATORY DATA: Please see below. MICROBIOLOGY: Please see below. DVT prophylaxis ordered?: Patient is ambulatory and low risk. ASSESSMENT AND PLAN: This is a 71-year-old female with right upper lobe mass versus pneumonia and right lower extremity critical limb ischemia status post bilateral common iliac artery angioplasty and stenting. Patient has SFA occlusion in the right lower extremity with reconstitution of the above-knee popliteal artery. PROBLEMS: 1. right upper lobe lung mass versus consolidation: Patient is being evaluated and treated by Dr. Erickson whose assistance is much appreciated. 2. right lower extremity ischemia: She is status post bilateral common iliac artery and plasty and stenting would improve perfusion of both lower extremities. The pain in the right foot is improved and the ulcers are healing. The patient is progressing towards healing and discharge and at this point does not show any signs of needing a femoral to popliteal artery bypass graft. DISPOSITION: Patient is improving daily and working towards possible discharge to home in the next 48-72 hours. VS, I&O, 24H, Fishbone Vital Signs/I&O Vital Signs Date Time Temp Pulse Resp B/P (MAP) Pulse Ox O2 Delivery O2 Flow Rate FiO2 10/01/16 22:00 98 Nasal Cannula 3.0 10/01/16 20:51 20 10/01/16 20:51 140/63 10/01/16 20:38 97.4 94 10/01/16 15:05 50 I&O- Last 24 Hours up to 6 AM 10/01/16 06:00 Intake Total 660 ml Output Total 1050 ml Balance -390 ml Laboratory Data 24H LABS Laboratory Tests 2 10/01/16 00:00: Bronchial Specimen Source RIGHT UPPER LOBE, Bronchial Fluid WBC , Bronchoalveolar Lavage Appearance CLOTTEDH, Bronchoalveolar Lavage Color WHITEH 10/01/16 05:47: Bedside Glucose (Misc Panel) 441H 10/01/16 06:05: Bedside Glucose Confirm (Misc) 423*H 10/01/16 08:12: Bedside Glucose (Misc Panel) 423H 10/01/16 11:43: Bedside Glucose (Misc Panel) 296H 10/01/16 16:58: Bedside Glucose (Misc Panel) 212H 10/01/16 18:14: White Blood Count 9.0, Red Blood Count 2.67L, Hemoglobin 7.5L, Hematocrit 24.4L , Mean Corpuscular Volume 91.3, Mean Corpuscular Hemoglobin 28.0, Mean Corpuscular Hemoglobin Concent 30.7L, Red Cell Distribution Width 15.4H, Platelet Count 184, Neutrophils (%) (Auto) 90.8H, Lymphocytes (%) (Auto) 4.2L, Monocytes (%) (Auto) 3.9, Eosinophils (%) (Auto) 0.1, Basophils (%) (Auto) 0.1, Neutrophils # (Auto) 8.2H, Lymphocytes # (Auto) 0.5L, Monocytes # (Auto) 0.4, Eosinophils # (Auto) 0.0, Basophils # (Auto) 0.0, Large Unclassified Cells % 0.9 , Large Unclassified Cells # 0.1, Platelet Estimate NORMAL, Polychromasia 1+, Hypochromasia 1+, Basophilic Stippling 1+, Anisocytosis 1+, Anion Gap 9, Glomerular Filtration Rate > 60.0, Blood Urea Nitrogen 32H, Creatinine 0.77, Sodium Level 137, Potassium Level 4.5, Chloride Level 102, Carbon Dioxide Level 26, Calcium Level 9.4, Aspartate Amino Transf (AST/SGOT) 28, Alanine Aminotransferase (ALT/SGPT) 24, Alkaline Phosphatase 97, Total Bilirubin 0.4, Total Protein 7.3, Albumin 2.7L, Albumin/Globulin Ratio 0.59L 10/01/16 20:32: Bedside Glucose (Misc Panel) 263H CBC/BMP Laboratory Tests 10/01/16 18:14 Red Blood Count 2.67 L, Mean Corpuscular Volume 91.3, Mean Corpuscular Hemoglobin 28.0, Mean Corpuscular Hemoglobin Concent 30.7 L, Red Cell Distribution Width 15.4 H, Neutrophils (%) (Auto) 90.8 H, Lymphocytes (%) (Auto ) 4.2 L, Monocytes (%) (Auto) 3.9, Eosinophils (%) (Auto) 0.1, Basophils (%) ( Auto) 0.1, Neutrophils # (Auto) 8.2 H, Lymphocytes # (Auto) 0.5 L, Monocytes # ( Auto) 0.4, Eosinophils # (Auto) 0.0, Basophils # (Auto) 0.0, Calcium Level 9.4, Aspartate Amino Transf (AST/SGOT) 28, Alanine Aminotransferase (ALT/SGPT) 24, Alkaline Phosphatase 97, Total Bilirubin 0.4, Total Protein 7.3, Albumin 2.7 L Microbiology Microbiology 10/01/16 Acid Fast Stain, Received Pending 10/01/16 Mycobacterial Culture, Received Pending 10/01/16 Fungal Smear, Received Pending 10/01/16 Fungal Culture, Received Pending 10/01/16 Gram Stain, Received Pending 10/01/16 Bronchoalveolar Lavage Culture, Received Pending 09/30/16 Gram Stain - Final, Resulted 09/30/16 Sputum Culture, Resulted Pending Everett Juarez MD Oct 01, 2016 22:24
[2016-10-02] VITALS (19 sets, daily range): BP systolic 150–170; BP diastolic 62–82; O2SAT 88–100
[2016-10-02] MEDS: ALBUTEROL SULFATE 2.5 MG/0.5 ML INH NEB SOLN NEB SCH ×6 (04:00→23:30)
[2016-10-02] MEDS: SODIUM CHLORIDE 0.9% INJ 10 ML SYR IV SCH ×2 (05:26→17:53)
[2016-10-02] MEDS: LEVOTHYROXINE 75MCG TABLET (0.075MG) PO SCH ×2 (05:26→05:37)
[2016-10-02] MEDS: CEFTAROLINE FOSAMIL 600 MG in D5W MINI-BAG PLUS 50 ML IV SCH (05:27)
[2016-10-02 05:40] LABS: BASO % 0.2 % (0.0-1.0); EOS % 0.1 % (0.0-3.0); LARGE UNSTAINED CELL # 0.1 K/mm3 (0.0-0.4); LARGE UNSTAINED CELL % 1.2 % (0.0-4.0); LYMPH # 0.6 K/mm3 (1.5-4.5); LYMPH % 6.1 % (24.0-44.0); MEAN CORPUSCULAR HEMOGLOBIN 28.2 pg (27.0-33.0); MEAN CORPUSCULAR HGB CONC 30.5 g/dl (32.0-36.5); MEAN CORPUSCULAR VOLUME 92.4 fl (80.0-96.0); MONO # 0.4 K/mm3 (0.0-0.8); MONO % 4.5 % (0.0-5.0); NEUTROPHILS # 7.9 K/mm3 (1.8-7.7); NEUTROPHILS % 87.9 % (36.0-66.0); PLATELET COUNT, AUTOMATED 182 k/mm3 (150-450); RED CELL DISTRIBUTION WIDTH 15.3 % (11.5-14.5)
[2016-10-02 06:08] LABS: ALBUMIN 2.7 GM/DL (3.2-5.2); ALBUMIN/GLOBULIN RATIO 0.66 (1.00-1.93); ALKALINE PHOSPHATASE 97 U/L (45-117); ALT/SGPT 25 U/L (12-78); ANION GAP 7 MEQ/L (8-16); AST/SGOT 24 U/L (15-37); BILIRUBIN,TOTAL 0.2 MG/DL (0.2-1.0); BLOOD UREA NITROGEN 35 MG/DL (7-18); CALCIUM LEVEL 8.7 MG/DL (8.8-10.2); CARBON DIOXIDE LEVEL 28 MEQ/L (21-32); CHLORIDE LEVEL 103 MEQ/L (98-107); CREATININE FOR GFR 0.93 MG/DL (0.55-1.02); GLOMERULAR FILTRATION RATE > 60.0 (>39); GLUCOSE, FASTING 396 MG/DL (83-110); POTASSIUM SERUM 4.8 MEQ/L (3.5-5.1); SODIUM LEVEL 138 MEQ/L (136-145); TOTAL PROTEIN 6.8 GM/DL (6.4-8.2)
[2016-10-02] MEDS: ATORVASTATIN 20 MG TAB PO SCH (08:38)
[2016-10-02] MEDS: HumaLOG INSULIN (NovoLOG) PER UNIT SC SCH ×4 (08:38→21:00)
[2016-10-02] MEDS: oxyCODONE 10 MG CR TAB PO SCH ×2 (08:39→21:38)
[2016-10-02] MEDS: LISINOPRIL *2.5 MG* TAB PO SCH ×2 (08:39→21:38)
[2016-10-02] MEDS: GABAPENTIN 300 MG CAP PO SCH ×3 (08:39→21:37)
[2016-10-02] MEDS: LEVEMIR (INSULIN DETEMIR) 1 UNITS/0.01ML SC SCH (08:40)
[2016-10-02] MEDS: ALPRAZolam 0.25 MG TAB PO PRN (08:59)
[2016-10-02] MEDS: DOXYCYCLINE HYCLATE 100 MG TAB PO SCH (13:39)
[2016-10-02] MEDS: NORCO, ANEXSIA 5/325MG TABLET (HYDROcodone/ACETAMINOPHEN) PO PRN (16:39)
[2016-10-02] MEDS: predniSONE 10 MG TAB PO SCH (21:39)
[2016-10-02] MEDS: ALPRAZolam 0.5 MG TAB PO PRN (21:54)
[2016-10-03] VITALS (24 sets, daily range): BP systolic 140–210; BP diastolic 70–94; O2SAT 81–99
[2016-10-03] MEDS: ALBUTEROL SULFATE 2.5 MG/0.5 ML INH NEB SOLN NEB SCH ×5 (04:00→19:37)
[2016-10-03] MEDS: LEVOTHYROXINE 75MCG TABLET (0.075MG) PO SCH (05:27)
[2016-10-03] MEDS: NORCO, ANEXSIA 5/325MG TABLET (HYDROcodone/ACETAMINOPHEN) PO PRN ×2 (05:27→18:18)
[2016-10-03] MEDS: SODIUM CHLORIDE 0.9% INJ 10 ML SYR IV SCH ×2 (05:28→17:06)
[2016-10-03] MEDS: HumaLOG INSULIN (NovoLOG) PER UNIT SC SCH ×4 (10:06→21:00)
[2016-10-03] MEDS: LISINOPRIL *2.5 MG* TAB PO SCH ×2 (10:09→21:45)
[2016-10-03] MEDS: GABAPENTIN 300 MG CAP PO SCH ×3 (10:09→21:45)
[2016-10-03] MEDS: ATORVASTATIN 20 MG TAB PO SCH (10:09)
[2016-10-03] MEDS: oxyCODONE 10 MG CR TAB PO SCH ×2 (10:10→21:45)
[2016-10-03] MEDS: DOXYCYCLINE HYCLATE 100 MG TAB PO SCH (10:10)
[2016-10-03] MEDS: predniSONE 10 MG TAB PO SCH (10:11)
[2016-10-03] MEDS: LEVEMIR (INSULIN DETEMIR) 1 UNITS/0.01ML SC SCH (10:16)
[2016-10-03] MEDS: ALPRAZolam 0.25 MG TAB PO PRN (12:10)
[2016-10-03] MEDS: ALPRAZolam 0.5 MG TAB PO PRN (19:36)
[2016-10-03] MEDS: ADVAIR HFA 230/21MCG INHALER INH SCH (21:50)
--- NOTE | 2016-10-03 21:53 | CCN ---
DATE: 10/03/2016 SUBJECTIVE: Lula states that she had an anxiety attack this morning and could not breathe. She states after receiving Xanax she did much better. She is currently on doxycycline and prednisone for chronic obstructive pulmonary disease (COPD) exacerbation with pneumonia. Previously had a history of methicillin-resistant Staphylococcus aureus (MRSA) pneumonia. Sputum cultures are still pending. She has had some improvement in her shortness of breath since the time of admission. She underwent bronchoscopy due to persistent abnormalities in the right upper lobe, being present for over a month. Biopsy showed acute inflammation. Cultures are still pending from both the bronchoscopy and from expectorated sputum. She has had no fevers and no chills. She does have difficulty with mucociliary clearance. She is using Acapella device and nebulizers at bedside. She was admitted for an ischemic foot. She is asking when she can go home. I have explained when she has the appropriate resources. PHYSICAL EXAMINATION: Temperature is 98.4, pulse is 104, respiratory rate is 24, blood pressure is 140/70, oxygen saturation is 87% on room air, 96% on 1 liter. She does have oxygen at home. HEENT: Sclerae clear and anicteric. Pupils equal, round, and reactive to light. Mucous membranes are moist without lesions. NECK: Supple. No tracheal deviation or mass. CARDIAC: Distant S1, S2 without audible murmur, rub, or gallop. No elevated jugular venous pulse (JVP). No peripheral edema. Right upper lobe has diffuse rhonchi. There is an end-expiratory wheeze. All other lung ferrell are clear but decreased. There is no accessory muscle use. ABDOMEN: Soft, nontender, nondistended. No hepatosplenomegaly. No masses or hernia. EXTREMITIES: No cyanosis, clubbing, or edema. MUSCULOSKELETAL: She has significant muscle wasting. Right foot is bandaged. No evidence of fracture or joint effusion. LABORATORY EVALUATION: Shows a white blood count of 9.0, hemoglobin 7.5, hematocrit of 24.8 (unchanged ) neutrophilia of 87.9. Sodium is 138, potassium 4.8, bicarbonate is 28, BUN is 35, creatinine is 0.93. Albumin is 2.7. As mentioned above, pathology showed acute inflammation consistent with pneumonia. Cytology showing macrophages and bronchial and squamous cells. Some neutrophils. Microbiology from lavage is still pending. Sputum culture from expectorated sputum felt that this was normal tracie. There were moderate epithelial cells, moderate WBC, moderate gram-positive cocci in pairs and clusters, moderate gram-positive rods, and few gram-negative cocci. On bronchoalveolar lavage, there were is no organisms seen. No growth aerobically on culture. Acid-fast stain was unremarkable. Fungal culture is pending. Fungal smear was also unremarkable. AFB culture is pending. IMPRESSION: A 71-year-old female with : 1. Abnormal chest CT, pulmonary infiltrate secondary to pneumonia. Recommend continuing her current antibiotics with prednisone. She will have radiology followup of these abnormalities. Both on CT and on bronchoscopy, most consistent with pneumonia. There was no obstructing mass. 2. Gold stage IV emphysema with chronic hypoxic respiratory failure. The patient has oxygen at home. Two liters appears to be adequate. Will ambulate with oximetry prior to discharge. Continue prednisone at 10 mg until seen with me in followup. Continue doxycycline for total of 7 days. Inhaled therapy in the form of albuterol nebulizer and Acapella device continued. Patient should also be on long-acting beta agonist, inhaled corticosteroid, and long-acting anticholinergic therapy. Will ensure this is available to her as an outpatient. 3. Nicotine dependence. Extensively counseled on need to remain smoke free. She states she does not want any nicotine replacement or any other pharmacologic therapy to assist her with smoking cessation. She wishes to quit cold turkey. She was advised to call the office with any difficulties with smoking cessation. I will continue to follow the patient in the office. Thank you for this consultation. SUNITA
--- NOTE | 2016-10-03 22:41 | IPNPDOC ---
Date Seen The patient was seen on 10/02/16. Progress Note SUBJECTIVE: Patient is without complaints. She does acknowledge she is coughing up some blood tinged sputum after her bronchoscopy. OBJECTIVE PHYSICAL EXAMINATION: VITAL SIGNS: Please see below. GENERAL: Lying in bed comfortably HEENT: Normal CARDIOVASCULAR: Regular rate and rhythm. RESPIRATORY: Clear to auscultation. ABDOMINAL: Soft nontender nondistended EXTREMITIES: Right foot is well perfused ulcerations on the right foot are stable. Patient still complains of right foot neuropathic pain. NEUROLOGICAL: Awake alert oriented x3 PSYCHOLOGICAL: Normal LABORATORY DATA: Please see below. MICROBIOLOGY: Please see below. DVT prophylaxis ordered?: Patient is ambulatory low risk ASSESSMENT AND PLAN: This is a 71-year-old female right lower extremity ischemia with improved to perfusion after undergoing bilateral iliac artery angioplasty and stenting. Patient underwent bronchoscopy with biopsy and bronchial alveolar lavage by Dr. Erickson who is following her for her right lung issues. PROBLEMS: 1. right lower extremity ischemia: Right foot is well perfused wounds appear to be healing and the patient has improved sensation in less pain. At this point there is no evidence patient requires a femoral popliteal artery bypass graft in and we'll allow her to spontaneously heal and continue to follow her closely. 2. right lung mass: Followed by Dr. Erickson. VS, I&O, 24H, Fishbone Vital Signs/I&O Vital Signs Date Time Temp Pulse Resp B/P (MAP) Pulse Ox O2 Delivery O2 Flow Rate FiO2 10/03/16 21:56 96 Nasal Cannula 2.0 10/03/16 21:30 206/88 (127) 10/03/16 20:00 97.5 91 22 10/01/16 15:05 50 I&O- Last 24 Hours up to 6 AM 10/03/16 06:00 Intake Total 360 ml Output Total 1900 ml Balance -1540 ml Laboratory Data 24H LABS Laboratory Tests 2 10/03/16 05:36: Bedside Glucose (Misc Panel) 294H 10/03/16 11:59: Bedside Glucose (Misc Panel) 303H 10/03/16 16:54: Bedside Glucose (Misc Panel) 163H Microbiology Microbiology 10/01/16 Acid Fast Stain - Final, Resulted 10/01/16 Mycobacterial Culture, Resulted Pending 10/01/16 Fungal Smear, Resulted Pending 10/01/16 Fungal Culture, Resulted Pending 10/01/16 Gram Stain - Final, Complete 10/01/16 Bronchoalveolar Lavage Culture - Final, Complete 09/30/16 Gram Stain - Final, Complete 09/30/16 Sputum Culture - Final, Complete Yeast Like Organism Everett Juarez MD Oct 03, 2016 22:41
--- NOTE | 2016-10-03 22:47 | IPNPDOC ---
Date Seen The patient was seen on 10/03/16. Progress Note SUBJECTIVE: Patient is without major complaints. OBJECTIVE PHYSICAL EXAMINATION: VITAL SIGNS: Please see below. GENERAL: Lying in bed comfortably HEENT: Normal CARDIOVASCULAR: Regular rate and rhythm. RESPIRATORY: Decreased breath sounds at the bases. ABDOMINAL: Soft nontender nondistended EXTREMITIES: Lower extremities are well-perfused right foot shows good capillary refill and healing wounds. NEUROLOGICAL: Awake alert oriented x3 PSYCHOLOGICAL: Normal LABORATORY DATA: Please see below. MICROBIOLOGY: Please see below. DVT prophylaxis ordered?: Patient low risk and ambulatory. ASSESSMENT AND PLAN: This is a 71-year-old female with right lower extremity critical ischemia ulceration and right lung mass. PROBLEMS: 1. right lower extremity ischemia: She is well-perfused status post bilateral iliac artery angioplasty and stenting. 2. COPD and right lung consolidation: Patient is being managed and followed by Dr. Erickson for her lung issues. VS, I&O, 24H, Fishbone Vital Signs/I&O Vital Signs Date Time Temp Pulse Resp B/P (MAP) Pulse Ox O2 Delivery O2 Flow Rate FiO2 10/03/16 21:56 96 Nasal Cannula 2.0 10/03/16 21:30 206/88 (127) 10/03/16 20:00 97.5 91 22 10/01/16 15:05 50 I&O- Last 24 Hours up to 6 AM 10/03/16 05:59 Intake Total 360 ml Output Total 1900 ml Balance -1540 ml Laboratory Data 24H LABS Laboratory Tests 2 10/03/16 05:36: Bedside Glucose (Misc Panel) 294H 10/03/16 11:59: Bedside Glucose (Misc Panel) 303H 10/03/16 16:54: Bedside Glucose (Misc Panel) 163H Microbiology Microbiology 10/01/16 Acid Fast Stain - Final, Resulted 10/01/16 Mycobacterial Culture, Resulted Pending 10/01/16 Fungal Smear, Resulted Pending 10/01/16 Fungal Culture, Resulted Pending 10/01/16 Gram Stain - Final, Complete 10/01/16 Bronchoalveolar Lavage Culture - Final, Complete 09/30/16 Gram Stain - Final, Complete 09/30/16 Sputum Culture - Final, Complete Yeast Like Organism Everett Juarez MD Oct 03, 2016 22:47
[2016-10-04 04:00] VITALS: BP 162/90
[2016-10-04] MEDS: ALBUTEROL SULFATE 2.5 MG/0.5 ML INH NEB SOLN NEB SCH ×6 (04:00→20:00)
[2016-10-04] MEDS: LEVOTHYROXINE 75MCG TABLET (0.075MG) PO SCH (05:37)
[2016-10-04] MEDS: SODIUM CHLORIDE 0.9% INJ 10 ML SYR IV SCH ×2 (05:37→19:00)
[2016-10-04 07:35] VITALS: BP 182/80
[2016-10-04] MEDS: HumaLOG INSULIN (NovoLOG) PER UNIT SC SCH ×4 (08:05→20:51)
[2016-10-04] MEDS: GABAPENTIN 300 MG CAP PO SCH ×3 (08:05→20:49)
[2016-10-04] MEDS: ATORVASTATIN 20 MG TAB PO SCH (08:05)
[2016-10-04] MEDS: DOXYCYCLINE HYCLATE 100 MG TAB PO SCH (08:06)
[2016-10-04] MEDS: LISINOPRIL *2.5 MG* TAB PO SCH ×2 (08:06→21:55)
[2016-10-04] MEDS: LEVEMIR (INSULIN DETEMIR) 1 UNITS/0.01ML SC SCH (08:12)
[2016-10-04] MEDS: ADVAIR HFA 230/21MCG INHALER INH SCH ×2 (08:21→20:08)
[2016-10-04] MEDS: TIOTROPIUM INHALER/CAPSULE (SPIRIVA) INH SCH (08:21)
[2016-10-04] MEDS: predniSONE 10 MG TAB PO SCH (11:38)
[2016-10-04] MEDS: oxyCODONE 10 MG CR TAB PO SCH (11:39)
[2016-10-04 12:00] VITALS: BP 180/80
[2016-10-04] MEDS: ALBUTEROL SULFATE 2.5 MG/0.5 ML INH NEB SOLN NEB PRN (18:06)
[2016-10-04] MEDS: oxyCODONE 15 MG CR TAB PO SCH (20:49)
[2016-10-04] MEDS: ALPRAZolam 0.5 MG TAB PO PRN (20:49)
[2016-10-04 22:00] VITALS: BP 160/74
[2016-10-05] MEDS: ALBUTEROL SULFATE 2.5 MG/0.5 ML INH NEB SOLN NEB SCH ×6 (04:00→20:00)
[2016-10-05] MEDS: SODIUM CHLORIDE 0.9% INJ 10 ML SYR IV SCH ×2 (05:24→16:36)
[2016-10-05] MEDS: LEVOTHYROXINE 75MCG TABLET (0.075MG) PO SCH (05:30)
[2016-10-05 06:00] VITALS: BP 154/70
[2016-10-05] MEDS: HumaLOG INSULIN (NovoLOG) PER UNIT SC SCH ×4 (07:30→20:25)
[2016-10-05] MEDS: TIOTROPIUM INHALER/CAPSULE (SPIRIVA) INH SCH (07:55)
[2016-10-05] MEDS: ADVAIR HFA 230/21MCG INHALER INH SCH ×2 (07:56→19:25)
[2016-10-05] MEDS: LEVEMIR (INSULIN DETEMIR) 1 UNITS/0.01ML SC SCH (09:00)
[2016-10-05] MEDS: predniSONE 10 MG TAB PO SCH (09:17)
[2016-10-05] MEDS: DOXYCYCLINE HYCLATE 100 MG TAB PO SCH (09:17)
[2016-10-05] MEDS: ATORVASTATIN 20 MG TAB PO SCH (09:18)
[2016-10-05] MEDS: GABAPENTIN 300 MG CAP PO SCH ×3 (09:18→20:26)
[2016-10-05] MEDS: LISINOPRIL *2.5 MG* TAB PO SCH ×2 (09:19→20:26)
[2016-10-05] MEDS: oxyCODONE 15 MG CR TAB PO SCH ×2 (09:23→20:25)
[2016-10-05] MEDS: ALPRAZolam 0.25 MG TAB PO PRN (10:34)
[2016-10-05 10:58] VITALS: BP 195/89
[2016-10-05 11:45] VITALS: BP 194/93
[2016-10-05 14:00] VITALS: BP_SYST 148; BP_SYST 185; BP_DIAS 86; BP_DIAS 90
[2016-10-05 15:21] VITALS: BP 149/89
[2016-10-05] MEDS: ALPRAZolam 0.5 MG TAB PO PRN (19:51)
[2016-10-05 22:00] VITALS: BP 166/84
--- NOTE | 2016-10-05 22:00 | IPNPDOC ---
Date Seen The patient was seen on 10/04/16. Progress Note SUBJECTIVE: Patient is without complaints OBJECTIVE PHYSICAL EXAMINATION: VITAL SIGNS: Please see below. GENERAL: Normal HEENT: Normal CARDIOVASCULAR: Regular rate and rhythm. RESPIRATORY: Decreased breath sounds at the bases. ABDOMINAL: Soft nontender nondistended EXTREMITIES: Right foot perfused well ulcers stable NEUROLOGICAL: Awake alert oriented x3 PSYCHOLOGICAL: Normal LABORATORY DATA: Please see below. MICROBIOLOGY: Please see below. ASSESSMENT AND PLAN: This is a 71-year-old female with right lower extremity ischemia and right lung mass. PROBLEMS: 1. lower extremity ischemia: Patient is status post bilateral common iliac artery angioplasty and stenting. Right foot is perfused and wounds are healing. 2. right lung mass: This appears to be pneumonia and the patient is being followed and treated by Dr. Erickson. VS, I&O, 24H, Fishbone Vital Signs/I&O Vital Signs Date Time Temp Pulse Resp B/P (MAP) Pulse Ox O2 Delivery O2 Flow Rate FiO2 10/05/16 21:00 Nasal Cannula 2.0 10/05/16 20:26 185/95 10/05/16 20:25 18 10/05/16 14:00 97.6 100 90 10/01/16 15:05 50 I&O- Last 24 Hours up to 6 AM 10/05/16 06:00 Intake Total 2280 ml Output Total 2900 ml Balance -620 ml Laboratory Data Microbiology Microbiology 10/01/16 Acid Fast Stain - Final, Resulted 10/01/16 Mycobacterial Culture, Resulted Pending 10/01/16 Fungal Smear - Final, Resulted 10/01/16 Fungal Culture, Resulted Pending 10/01/16 Gram Stain - Final, Complete 10/01/16 Bronchoalveolar Lavage Culture - Final, Complete 09/30/16 Gram Stain - Final, Complete 09/30/16 Sputum Culture - Final, Complete Yeast Like Organism Everett Juarez MD Oct 05, 2016 22:00
--- NOTE | 2016-10-05 22:06 | IPNPDOC ---
Date Seen The patient was seen on 10/05/16. Progress Note SUBJECTIVE: Patient is a without complaints. Patient has have been having intermittent anxiety attacks with difficulty breathing during anxiety attack. OBJECTIVE PHYSICAL EXAMINATION: VITAL SIGNS: Please see below. GENERAL: Lying in bed comfortably HEENT: Normal CARDIOVASCULAR: Regular rate and rhythm. RESPIRATORY: Decreased breath sounds at the bases. ABDOMINAL: Soft nontender nondistended EXTREMITIES: Right lower extremity perfused ulcers are healing and stable. NEUROLOGICAL: Awake alert oriented x3 with no focal deficits PSYCHOLOGICAL: Normal LABORATORY DATA: Please see below. MICROBIOLOGY: Please see below. ASSESSMENT AND PLAN: This is a 71-year-old female with right lower extremity ischemia and right lung mass. PROBLEMS: 1. right lower extremity ischemia: Right foot is better perfused after undergoing bilateral common iliac artery angioplasty and stenting. Right foot ulcers are healing and pain is improving. 2. right lung mass: She has right lung pneumonia and is being treated by Dr. Erickson. VS, I&O, 24H, Fishbone Vital Signs/I&O Vital Signs Date Time Temp Pulse Resp B/P (MAP) Pulse Ox O2 Delivery O2 Flow Rate FiO2 10/05/16 21:00 Nasal Cannula 2.0 10/05/16 20:26 185/95 10/05/16 20:25 18 10/05/16 14:00 97.6 100 90 10/01/16 15:05 50 I&O- Last 24 Hours up to 6 AM 10/05/16 06:00 Intake Total 2280 ml Output Total 2900 ml Balance -620 ml Laboratory Data Microbiology Microbiology 10/01/16 Acid Fast Stain - Final, Resulted 10/01/16 Mycobacterial Culture, Resulted Pending 10/01/16 Fungal Smear - Final, Resulted 10/01/16 Fungal Culture, Resulted Pending 10/01/16 Gram Stain - Final, Complete 10/01/16 Bronchoalveolar Lavage Culture - Final, Complete 09/30/16 Gram Stain - Final, Complete 09/30/16 Sputum Culture - Final, Complete Yeast Like Organism Everett Juarez MD Oct 05, 2016 22:06
[2016-10-06] MEDS: ALBUTEROL SULFATE 2.5 MG/0.5 ML INH NEB SOLN NEB SCH ×7 (04:00→23:20)
[2016-10-06] MEDS: SODIUM CHLORIDE 0.9% INJ 10 ML SYR IV SCH ×2 (05:44→17:51)
[2016-10-06] MEDS: LEVOTHYROXINE 75MCG TABLET (0.075MG) PO SCH (05:44)
[2016-10-06 06:00] VITALS: BP 152/74
[2016-10-06] MEDS: TIOTROPIUM INHALER/CAPSULE (SPIRIVA) INH SCH (06:27)
[2016-10-06] MEDS: ADVAIR HFA 230/21MCG INHALER INH SCH ×2 (06:27→19:34)
[2016-10-06] MEDS: HumaLOG INSULIN (NovoLOG) PER UNIT SC SCH ×4 (07:30→20:37)
[2016-10-06] MEDS: LEVEMIR (INSULIN DETEMIR) 1 UNITS/0.01ML SC SCH (09:00)
[2016-10-06] MEDS: DOXYCYCLINE HYCLATE 100 MG TAB PO SCH (10:10)
[2016-10-06] MEDS: LISINOPRIL *2.5 MG* TAB PO SCH ×2 (10:11→20:36)
[2016-10-06] MEDS: ATORVASTATIN 20 MG TAB PO SCH (10:11)
[2016-10-06] MEDS: predniSONE 10 MG TAB PO SCH (10:12)
[2016-10-06] MEDS: oxyCODONE 15 MG CR TAB PO SCH ×2 (10:14→20:36)
[2016-10-06] MEDS: GABAPENTIN 300 MG CAP PO SCH ×3 (10:14→20:37)
[2016-10-06 14:00] VITALS: BP 158/86
--- NOTE | 2016-10-06 19:06 | IPNPDOC ---
Date Seen The patient was seen on 10/06/16. Progress Note SUBJECTIVE: Patient is without complaints. Patient does note color change on her left third toe which is new. Patient continues to have anxiety attacks with shortness of breath. OBJECTIVE PHYSICAL EXAMINATION: VITAL SIGNS: Please see below. GENERAL: Lying in bed comfortably HEENT: Normal CARDIOVASCULAR: Regular rate and rhythm. RESPIRATORY: Clear to auscultation bilaterally with decreased breath sounds at the bases. ABDOMINAL: Soft nontender nondistended EXTREMITIES: Right lower tremor he shows good perfusion. Right foot ulcers are dry and healing well. Left third toe shows no discoloration which is consistent with ischemia. NEUROLOGICAL: Awake alert oriented x3 PSYCHOLOGICAL: Normal LABORATORY DATA: Please see below. MICROBIOLOGY: Please see below. DVT prophylaxis ordered?: Patient is ambulatory and low risk. ASSESSMENT AND PLAN: This is a 71-year-old female with chronic limb ischemia and rest pain in the right lower extremity U underwent bilateral common iliac artery and to plastic and stenting with relief of her pain in the right foot and better perfusion. Patient has new ischemic change to the left third toe. Patient also has pneumonia in the right upper lobe. Patient has had continued anxiety attacks with extreme shortness of breath and difficulty breathing during the anxiety attacks. PROBLEMS: 1. 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 Patient will require angiography of the left lower extremity which will be performed in the next 24- 48 hours. 2. right lower extremity ischemia and arterial atherosclerotic occlusive disease : Right foot is well perfused, ulcers are healing well and the pain is improving daily. 3. right upper lobe pneumonia: Action is under the care of Dr. Erickson. Patient has continued anxiety attacks with shortness of breath and difficulty breathing and will be placed on Xanax 0.5 mg every 6 hours. DISPOSITION: Patient was progressing towards discharge but with new ischemic changes in the left foot she will require angiography with possible intervention. VS, I&O, 24H, Fishbone Vital Signs/I&O Vital Signs Date Time Temp Pulse Resp B/P (MAP) Pulse Ox O2 Delivery O2 Flow Rate FiO2 10/06/16 15:48 Nasal Cannula 2.0 10/06/16 14:00 99.2 104 20 158/86 (110) 92 10/01/16 15:05 50 I&O- Last 24 Hours up to 6 AM 8/27/17 05:59 Intake Total 2480 ml Output Total 1875 ml Balance 605 ml Laboratory Data 24H LABS Laboratory Tests 2 10/05/16 20:16: Bedside Glucose (Misc Panel) 371H 10/06/16 06:16: Bedside Glucose (Misc Panel) 154H 10/06/16 11:43: Bedside Glucose (Misc Panel) 340H 10/06/16 17:44: Bedside Glucose (Misc Panel) 262H Microbiology Microbiology 10/01/16 Acid Fast Stain - Final, Resulted 10/01/16 Mycobacterial Culture, Resulted Pending 10/01/16 Fungal Smear - Final, Resulted 10/01/16 Fungal Culture, Resulted Pending 10/01/16 Gram Stain - Final, Complete 10/01/16 Bronchoalveolar Lavage Culture - Final, Complete 09/30/16 Gram Stain - Final, Complete 09/30/16 Sputum Culture - Final, Complete Yeast Like Organism Everett Juarez MD Oct 06, 2016 19:06
[2016-10-06] MEDS: ALPRAZolam 0.5 MG TAB PO PRN (20:43)
[2016-10-06 22:00] VITALS: BP 161/77
[2016-10-07] MEDS: ALBUTEROL SULFATE 2.5 MG/0.5 ML INH NEB SOLN NEB SCH ×6 (03:31→23:30)
[2016-10-07] MEDS: LEVOTHYROXINE 75MCG TABLET (0.075MG) PO SCH (05:26)
[2016-10-07] MEDS: SODIUM CHLORIDE 0.9% INJ 10 ML SYR IV SCH ×2 (05:26→17:05)
[2016-10-07 05:41] LABS: MEAN CORPUSCULAR HEMOGLOBIN 27.4 pg (27.0-33.0); MEAN CORPUSCULAR VOLUME 91.4 fl (80.0-96.0); RED CELL DISTRIBUTION WIDTH 15.4 % (11.5-14.5)
[2016-10-07 06:00] VITALS: BP 162/76
[2016-10-07 06:44] LABS: ANION GAP 8 MEQ/L (8-16); BLOOD UREA NITROGEN 17 MG/DL (7-18); CALCIUM LEVEL 8.2 MG/DL (8.8-10.2); CARBON DIOXIDE LEVEL 31 MEQ/L (21-32); CHLORIDE LEVEL 104 MEQ/L (98-107); CREATININE FOR GFR 0.66 MG/DL (0.55-1.02); GLOMERULAR FILTRATION RATE > 60.0 (>39); GLUCOSE, FASTING 295 MG/DL (83-110); POTASSIUM SERUM 4.2 MEQ/L (3.5-5.1); SODIUM LEVEL 143 MEQ/L (136-145)
[2016-10-07] MEDS: TIOTROPIUM INHALER/CAPSULE (SPIRIVA) INH SCH (07:40)
[2016-10-07] MEDS: ADVAIR HFA 230/21MCG INHALER INH SCH ×2 (07:41→20:24)
[2016-10-07] MEDS: ATORVASTATIN 20 MG TAB PO SCH (08:17)
[2016-10-07] MEDS: LISINOPRIL *2.5 MG* TAB PO SCH ×2 (08:17→20:56)
[2016-10-07] MEDS: GABAPENTIN 300 MG CAP PO SCH ×3 (08:17→20:56)
[2016-10-07] MEDS: DOXYCYCLINE HYCLATE 100 MG TAB PO SCH (08:18)
[2016-10-07] MEDS: predniSONE 10 MG TAB PO SCH (08:18)
[2016-10-07] MEDS: oxyCODONE 15 MG CR TAB PO SCH ×2 (08:18→20:55)
[2016-10-07] MEDS: LEVEMIR (INSULIN DETEMIR) 1 UNITS/0.01ML SC SCH (08:19)
[2016-10-07] MEDS: HumaLOG INSULIN (NovoLOG) PER UNIT SC SCH ×4 (08:19→20:57)
[2016-10-07 14:00] VITALS: BP 170/85
[2016-10-07] MEDS: ALPRAZolam 0.5 MG TAB PO PRN ×2 (14:37→20:56)
[2016-10-07] MEDS: NORCO, ANEXSIA 5/325MG TABLET (HYDROcodone/ACETAMINOPHEN) PO PRN ×2 (14:37→20:54)
[2016-10-07 22:00] VITALS: BP 170/76
[2016-10-08] MEDS: ALBUTEROL SULFATE 2.5 MG/0.5 ML INH NEB SOLN NEB SCH ×7 (03:38→23:34)
[2016-10-08] MEDS: SODIUM CHLORIDE 0.9% INJ 10 ML SYR IV SCH ×2 (05:42→17:16)
[2016-10-08] MEDS: LEVOTHYROXINE 75MCG TABLET (0.075MG) PO SCH (05:42)
[2016-10-08] MEDS: NORCO, ANEXSIA 5/325MG TABLET (HYDROcodone/ACETAMINOPHEN) PO PRN (05:46)
[2016-10-08 06:00] VITALS: BP 167/77
[2016-10-08] MEDS: HumaLOG INSULIN (NovoLOG) PER UNIT SC SCH ×4 (07:30→21:00)
[2016-10-08] MEDS: ADVAIR HFA 230/21MCG INHALER INH SCH ×2 (07:42→20:41)
[2016-10-08] MEDS: TIOTROPIUM INHALER/CAPSULE (SPIRIVA) INH SCH (07:42)
[2016-10-08] MEDS: GABAPENTIN 300 MG CAP PO SCH ×3 (08:16→22:20)
[2016-10-08] MEDS: LISINOPRIL *2.5 MG* TAB PO SCH ×2 (08:16→22:20)
[2016-10-08] MEDS: ATORVASTATIN 20 MG TAB PO SCH (08:17)
[2016-10-08] MEDS: predniSONE 10 MG TAB PO SCH (08:17)
[2016-10-08] MEDS: oxyCODONE 15 MG CR TAB PO SCH ×2 (08:17→21:00)
[2016-10-08] MEDS: DOXYCYCLINE HYCLATE 100 MG TAB PO SCH (08:17)
[2016-10-08] MEDS: LEVEMIR (INSULIN DETEMIR) 1 UNITS/0.01ML SC SCH (08:18)
[2016-10-08] MEDS: ALPRAZolam 0.5 MG TAB PO PRN ×2 (12:05→18:00)
[2016-10-08 14:00] VITALS: BP 179/98
[2016-10-08] MEDS ORDERED: HEPARIN 1,000 UNITS/ML 10ML VIAL (FOR RADIOLOGY& DIALYSIS ONLY) As Ordered ONE (14:29)
[2016-10-08] MEDS ORDERED: ISOVUE-300 61% 50ML VIAL (Q9967) As Ordered ONE (14:29)
[2016-10-08] MEDS ORDERED: fentaNYL 100 MCG/2 ML INJECTION (J3010) As Ordered ONE (14:41)
[2016-10-08] MEDS ORDERED: MIDAZOLAM INJ 2 MG/2 ML VIAL (J2250) As Ordered ONE (14:41)
[2016-10-08 16:30] VITALS: BP 163/88
[2016-10-08 17:00] VITALS: BP 166/92
[2016-10-08] MEDS ORDERED: MIDAZOLAM INJ 2 MG/2 ML VIAL (J2250) IV ONE (19:45)
[2016-10-08] MEDS ORDERED: NS 1,000 ML IV SCH (19:45)
[2016-10-08] MEDS ORDERED: fentaNYL 100 MCG/2 ML INJECTION (J3010) IV ONE (19:45)
[2016-10-08 22:00] VITALS: BP 151/71
--- NOTE | 2016-10-08 22:42 | IPNPDOC ---
Date Seen The patient was seen on 10/07/16. Progress Note SUBJECTIVE: Patient is without complaints. Anxiety attacks have become much less since increasing her Xanax. OBJECTIVE PHYSICAL EXAMINATION: VITAL SIGNS: Please see below. GENERAL: Lying in bed comfortably HEENT: Normal CARDIOVASCULAR: Regular rate and rhythm. RESPIRATORY: Clear to auscultation with decreased breath sounds at the bases. ABDOMINAL: Soft nontender nondistended EXTREMITIES: Right lower extremity is well-perfused with healing of the right foot ulcers. Left third toe shows ischemic changes remainder of the foot has good capillary refill. NEUROLOGICAL: Awake alert oriented x3 PSYCHOLOGICAL: Normal LABORATORY DATA: Please see below. MICROBIOLOGY: Please see below. ASSESSMENT AND PLAN: This is a 71-year-old female with right lower extremity ischemia who underwent bilateral common iliac artery and testing stenting and has better perfusion of the right lower extremity. Patient has a new ischemic left third toe. Patient also has a right sided pneumonia. PROBLEMS: 1. right lower extremity ischemia: She has better perfusion and the right foot wounds are healing well.. 2. left lower extremity ischemia: She is scheduled to undergo a left lower extremity in agreement with possible antiplastic and stent. 3. right lung pneumonia: Patient is being treated and followed by Dr. Erickson who has cleared the patient for discharge once her ischemic issues are resolved. DISPOSITION: Patient will undergo a left lower extremity angiogram. VS, I&O, 24H, [place] Vital Signs/I&O Vital Signs Date Time Temp Pulse Resp B/P (MAP) Pulse Ox O2 Delivery O2 Flow Rate FiO2 10/08/16 22:20 151/76 10/08/16 22:00 97.7 81 18 100 Nasal Cannula 2.0 I&O- Last 24 Hours up to 6 AM 10/08/16 05:59 Intake Total 1320 ml Output Total 1400 ml Balance -80 ml Laboratory Data 24H LABS Laboratory Tests 2 10/08/16 05:57: Bedside Glucose (Misc Panel) 195H 10/08/16 12:08: Bedside Glucose (Misc Panel) 247H 10/08/16 17:08: Bedside Glucose (Misc Panel) 194H 10/08/16 21:25: Bedside Glucose (Misc Panel) 50L 10/08/16 21:58: Bedside Glucose (Misc Panel) 166H Microbiology Microbiology 10/01/16 Acid Fast Stain - Final, Resulted 10/01/16 Mycobacterial Culture, Resulted Pending 10/01/16 Fungal Smear - Final, Resulted 10/01/16 Fungal Culture, Resulted Pending 10/01/16 Gram Stain - Final, Complete 10/01/16 Bronchoalveolar Lavage Culture - Final, Complete 09/30/16 Gram Stain - Final, Complete 09/30/16 Sputum Culture - Final, Complete Yeast Like Organism Everett Juarez MD Oct 08, 2016 22:42
--- NOTE | 2016-10-08 22:46 | IPNPDOC ---
Date Seen The patient was seen on 10/08/16. Progress Note SUBJECTIVE: Patient is without complaints. OBJECTIVE PHYSICAL EXAMINATION: VITAL SIGNS: Please see below. GENERAL: Lying in bed comfortably HEENT: Normal CARDIOVASCULAR: Regular rate and rhythm. RESPIRATORY: Clear to auscultation bilaterally with decreased breath sounds at the bases. ABDOMINAL: Soft nontender nondistended EXTREMITIES: Right lower extremity is well-perfused with good healing of the wounds. Left third toe ischemic changes have not progressed and remain unchanged. NEUROLOGICAL: Awake alert oriented x3 PSYCHOLOGICAL: Normal LABORATORY DATA: Please see below. MICROBIOLOGY: Please see below. ASSESSMENT AND PLAN: This is a 71-year-old female with bilateral lower extremity ischemia who underwent bilateral common iliac artery and to plastic and stenting. Patient has new ischemic changes the left foot and underwent an angiogram today which showed superficial femoral arterial occlusion in the left lower extremity. PROBLEMS: 1. right lower extremity ischemia: Right foot wounds are healing well and foot has adequate perfusion. 2. left lower extremity ischemia: Patient underwent an angiogram showing a left superficial femoral artery occlusion which was not amenable to endovascular repair. We'll discuss options of possible bypass grafting with the patient who has not wanted to undergo right lower extremity bypass grafting but we will discuss possible left femoral to popliteal artery bypass grafting. 3. right-sided pneumonia: Patient is stable and doing well on antibiotic therapy and being treated and followed by Dr. Erickson. DISPOSITION: Possible discharge in 24-48 hours. VS, I&O, 24H, Fishbone Vital Signs/I&O Vital Signs Date Time Temp Pulse Resp B/P (MAP) Pulse Ox O2 Delivery O2 Flow Rate FiO2 10/08/16 22:20 151/76 10/08/16 22:00 97.7 81 18 100 Nasal Cannula 2.0 I&O- Last 24 Hours up to 6 AM 10/08/16 05:59 Intake Total 1320 ml Output Total 1400 ml Balance -80 ml Laboratory Data 24H LABS Laboratory Tests 2 10/08/16 05:57: Bedside Glucose (Misc Panel) 195H 10/08/16 12:08: Bedside Glucose (Misc Panel) 247H 10/08/16 17:08: Bedside Glucose (Misc Panel) 194H 10/08/16 21:25: Bedside Glucose (Misc Panel) 50L 10/08/16 21:58: Bedside Glucose (Misc Panel) 166H Microbiology Microbiology 10/01/16 Acid Fast Stain - Final, Resulted 10/01/16 Mycobacterial Culture, Resulted Pending 10/01/16 Fungal Smear - Final, Resulted 10/01/16 Fungal Culture, Resulted Pending 10/01/16 Gram Stain - Final, Complete 10/01/16 Bronchoalveolar Lavage Culture - Final, Complete 09/30/16 Gram Stain - Final, Complete 09/30/16 Sputum Culture - Final, Complete Yeast Like Organism Everett Juarez MD Oct 08, 2016 22:46
[2016-10-09] VITALS (9 sets, daily range): BP systolic 169–200; BP diastolic 68–116
[2016-10-09] MEDS: ALPRAZolam 0.5 MG TAB PO PRN ×4 (00:19→20:38)
[2016-10-09] MEDS: ALBUTEROL SULFATE 2.5 MG/0.5 ML INH NEB SOLN NEB PRN (01:12)
[2016-10-09] MEDS ORDERED: IPRATROPIUM 0.5MG/ALBUTEROL 2.5MG INH SOL UD 3ML (DUONEB)(J7620) As Ordered ONE (01:33)
[2016-10-09] MEDS ORDERED: methylPREDNISolone INJ 125 MG/2 ML VIAL (J2930) IV ONE ×2 (01:45)
[2016-10-09] MEDS ORDERED: IPRATROPIUM 0.5MG/ALBUTEROL 2.5MG INH SOL UD 3ML (DUONEB)(J7620) NEB PRN (01:45)
[2016-10-09 01:46] LABS: ABG BASE EXCESS 4.4 (-2.0-2.0); ABG HCO3 31.8 MEQ/L (22.0-26.0); ABG PARTIAL PRESSURE O2 138.8 mmHg (75.0-100.0); ABG STANDARD HCO3 28.5 MEQ/L (22.0-26.0); ABG TOTAL CO2 33.8 MEQ/L (23.0-31.0); ABG pH (ARTERIAL) 7.315 UNITS (7.350-7.450)
[2016-10-09 01:47] LABS: ABG PARTIAL PRESSURE CO2 63.9 mmHg (35.0-45.0)
[2016-10-09 02:10] LABS: BASO # 0.1 K/mm3 (0.0-0.2); BASO % 0.7 % (0.0-1.0); EOS # 0.2 K/mm3 (0.0-0.50); EOS % 2.1 % (0.0-3.0); LARGE UNSTAINED CELL # 0.2 K/mm3 (0.0-0.4); LARGE UNSTAINED CELL % 1.8 % (0.0-4.0); LYMPH # 1.5 K/mm3 (1.5-4.5); LYMPH % 12.9 % (24.0-44.0); MEAN CORPUSCULAR HGB CONC 29.4 g/dl (32.0-36.5); MONO # 0.6 K/mm3 (0.0-0.8); MONO % 5.6 % (0.0-5.0); NEUTROPHILS # 8.8 K/mm3 (1.8-7.7); NEUTROPHILS % 76.9 % (36.0-66.0); PLATELET COUNT, AUTOMATED 324 k/mm3 (150-450); RED CELL DISTRIBUTION WIDTH 15.2 % (11.5-14.5); WHITE BLOOD COUNT 11.4 K/mm3 (4.0-10.0)
[2016-10-09 02:11] LABS: ADD MORPHOLOGY? YES
[2016-10-09 02:37] LABS: ALBUMIN 2.9 GM/DL (3.2-5.2); ALBUMIN/GLOBULIN RATIO 0.71 (1.00-1.93); ALKALINE PHOSPHATASE 108 U/L (45-117); ALT/SGPT 31 U/L (12-78); ANION GAP 11 MEQ/L (8-16); AST/SGOT 41 U/L (15-37); BILIRUBIN,TOTAL 0.4 MG/DL (0.2-1.0); BLOOD UREA NITROGEN 20 MG/DL (7-18); CALCIUM LEVEL 8.4 MG/DL (8.8-10.2); CARBON DIOXIDE LEVEL 26 MEQ/L (21-32); CHLORIDE LEVEL 104 MEQ/L (98-107); CREATININE FOR GFR 0.73 MG/DL (0.55-1.02); GLOMERULAR FILTRATION RATE > 60.0 (>39); GLUCOSE, FASTING 381 MG/DL (83-110); MAGNESIUM LEVEL 1.8 MG/DL (1.8-2.4); PHOSPHORUS LEVEL 4.8 MG/DL (2.5-4.9); POTASSIUM SERUM 4.6 MEQ/L (3.5-5.1); SODIUM LEVEL 141 MEQ/L (136-145)
[2016-10-09 02:38] LABS: ANISOCYTOSIS 1+; HYPOCHROMASIA 3+
[2016-10-09] MEDS: IPRATROPIUM 0.5MG/ALBUTEROL 2.5MG INH SOL UD 3ML (DUONEB)(J7620) NEB SCH ×4 (02:54→20:00)
[2016-10-09] MEDS ORDERED: cloNIDine 0.1 MG TAB PO ONE (03:30)
[2016-10-09 04:55] LABS: MEAN CORPUSCULAR HEMOGLOBIN 27.7 pg (27.0-33.0); MEAN CORPUSCULAR HGB CONC 30.1 g/dl (32.0-36.5); RED CELL DISTRIBUTION WIDTH 15.3 % (11.5-14.5); WHITE BLOOD COUNT 10.3 K/mm3 (4.0-10.0)
[2016-10-09 05:07] LABS: ANION GAP 6 MEQ/L (8-16); BLOOD UREA NITROGEN 19 MG/DL (7-18); CALCIUM LEVEL 8.9 MG/DL (8.8-10.2); CARBON DIOXIDE LEVEL 31 MEQ/L (21-32); CHLORIDE LEVEL 102 MEQ/L (98-107); CREATININE FOR GFR 0.68 MG/DL (0.55-1.02); GLOMERULAR FILTRATION RATE > 60.0 (>39); GLUCOSE, FASTING 397 MG/DL (83-110); POTASSIUM SERUM 4.5 MEQ/L (3.5-5.1); SODIUM LEVEL 139 MEQ/L (136-145)
[2016-10-09 05:36] LABS: ABG BASE EXCESS 5.4 (-2.0-2.0); ABG HCO3 31.1 MEQ/L (22.0-26.0); ABG PARTIAL PRESSURE CO2 52.1 mmHg (35.0-45.0); ABG STANDARD HCO3 29.1 MEQ/L (22.0-26.0); ABG TOTAL CO2 32.7 MEQ/L (23.0-31.0); ABG pH (ARTERIAL) 7.394 UNITS (7.350-7.450)
[2016-10-09] MEDS: LEVOTHYROXINE 75MCG TABLET (0.075MG) PO SCH (06:07)
[2016-10-09] MEDS: SODIUM CHLORIDE 0.9% INJ 10 ML SYR IV SCH ×2 (06:08→14:38)
[2016-10-09] MEDS: ADVAIR HFA 230/21MCG INHALER INH SCH ×2 (07:15→20:51)
[2016-10-09] MEDS: TIOTROPIUM INHALER/CAPSULE (SPIRIVA) INH SCH (07:15)
[2016-10-09] MEDS: HumaLOG INSULIN (NovoLOG) PER UNIT SC SCH ×4 (08:30→20:25)
[2016-10-09] MEDS: LEVEMIR (INSULIN DETEMIR) 1 UNITS/0.01ML SC SCH (08:31)
[2016-10-09] MEDS: ATORVASTATIN 20 MG TAB PO SCH (08:31)
[2016-10-09] MEDS: oxyCODONE 15 MG CR TAB PO SCH ×2 (08:32→20:26)
[2016-10-09] MEDS: DOXYCYCLINE HYCLATE 100 MG TAB PO SCH (08:33)
[2016-10-09] MEDS: LISINOPRIL *2.5 MG* TAB PO SCH ×2 (08:33→20:28)
[2016-10-09] MEDS: GABAPENTIN 300 MG CAP PO SCH ×3 (08:33→20:26)
--- NOTE | 2016-10-09 09:03 | REP ---
PORTABLE CHEST X-RAY: Single view. HISTORY: Question infiltrate. Comparison study October 01, 2016. FINDINGS: Left-sided PICC line remains in place with its tip in the expected location of the superior vena cava. There are small bilateral pleural effusions. Cardiomegaly is observed. Pulmonary vascular congestion is seen and there is mild diffuse interstitial edema. The vascular congestion, the left pleural effusion, and the interstitial edema are new findings. A pleuroparenchymal opacity persists in the right upper lobe distribution with some volume loss and pleural thickening. This large opacity is unchanged from the October 01, 2016 prior study. IMPRESSION: New CHF/volume overload pattern with small left effusion, interstitial edema pattern and vascular congestion. Stable large infiltrate right upper lobe. Signed by Shane Sumner MD 10/09/2016 01:39 P
[2016-10-09] MEDS ORDERED: FUROSEMIDE 20 MG/2 ML VIAL (J1940) IV ONE (09:15)
[2016-10-09] MEDS: methylPREDNISolone INJ 125 MG/2 ML VIAL (J2930) IV SCH ×2 (09:34→17:10)
[2016-10-09] MEDS: SODIUM CHLORIDE 0.9% INJ 10 ML SYR IV PRN ×2 (09:35→17:09)
[2016-10-09] MEDS ORDERED: CLOPIDOGREL 300 MG TAB (PLAVIX) PO STA (22:37)
--- NOTE | 2016-10-09 22:46 | IPNPDOC ---
Date Seen The patient was seen on 10/09/16. Progress Note SUBJECTIVE: Patient is without complaints. Patient required transfer to the PCU overnight due to pulmonary issues. OBJECTIVE PHYSICAL EXAMINATION: VITAL SIGNS: Please see below. GENERAL: Patient sitting in bed comfortably HEENT: Normal CARDIOVASCULAR: Regular rate and rhythm. RESPIRATORY: Decreased breath sounds at the bases. ABDOMINAL: Soft nontender nondistended EXTREMITIES: Bilateral lower extremity stable right foot wound healing. NEUROLOGICAL: Awake alert oriented x3 PSYCHOLOGICAL: Normal LABORATORY DATA: Please see below. MICROBIOLOGY: Please see below. DVT prophylaxis ordered?: Patient low risk and ambulatory. ASSESSMENT AND PLAN: This is a 71-year-old female with bilateral lower extremity ischemia and superficial femoral arterial occlusion. Patient has right-sided pneumonia and is O2 dependent at home and has been having pulmonary issues during this hospitalization. PROBLEMS: 1. bilateral lower extremity ischemia: Patient has superficial femoral arterial occlusion bilaterally and has undergone bilateral common iliac artery and requesting and stenting with improved flow to the lower extremities. Patient has ulcers on the right foot and a new ischemic left third toe. Options discussed with the patient included bypass grafting which at this time she does not wish to proceed with an wishes to continue with conservative measurements. Patient will be started on Plavix. 2. pneumonia and pulmonary issues: Patient was initially seen by Dr. Erickson who we will asked to see the patient again for reevaluation and further treatment options. DISPOSITION: Possible discharge the next 24-48 hours if her pulmonary issues are stabilized. VS, I&O, [facility] Vital Signs Date Time Temp Pulse Resp B/P (MAP) Pulse Ox O2 Delivery O2 Flow Rate FiO2 10/09/16 20:28 184/78 10/09/16 20:26 20 10/09/16 20:00 97.8 93 97 Nasal Cannula 3.0 I&O- Last 24 Hours up to 6 AM 10/09/16 06:00 Intake Total 720 ml Output Total 1450 ml Balance -730 ml Laboratory Data 24H LABS Laboratory Tests 2 10/09/16 01:38: Blood Gas Bicarbonate Standard 28.5H, Arterial Blood pH 7.315L, Arterial Blood Partial Pressure CO2 63.9*H, Arterial Blood Partial Pressure O2 138.8H, Arterial Blood Total CO2 33.8H, Arterial Blood HCO3 31.8H, Arterial Blood Base Excess 4.4H, Arterial Blood Oxygen Saturation 98.9 10/09/16 01:46: Total Creatine Kinase 63, Creatine Kinase MB 5.4H, Creatine Kinase MB Relative Index 8.57H, Troponin I 0.03 10/09/16 01:47: White Blood Count 11.4H, Red Blood Count 3.34L, Hemoglobin 9.0L, Hematocrit 30.7L, Mean Corpuscular Volume 92.0, Mean Corpuscular Hemoglobin 27.0, Mean Corpuscular Hemoglobin Concent 29.4L, Red Cell Distribution Width 15.2H, Platelet Count 324, Neutrophils (%) (Auto) 76.9H, Lymphocytes (%) (Auto) 12.9L, Monocytes (%) (Auto) 5.6H, Eosinophils (%) (Auto) 2.1, Basophils (%) (Auto) 0.7 , Neutrophils # (Auto) 8.8H, Lymphocytes # (Auto) 1.5, Monocytes # (Auto) 0.6, Eosinophils # (Auto) 0.2, Basophils # (Auto) 0.1, Large Unclassified Cells % 1.8 , Large Unclassified Cells # 0.2, Platelet Estimate NORMAL, Hypochromasia 3+, Anisocytosis 1+, Anion Gap 11, Glomerular Filtration Rate > 60.0, Blood Urea Nitrogen 20H, Creatinine 0.73, Sodium Level 141, Potassium Level 4.6, Chloride Level 104, Carbon Dioxide Level 26, Calcium Level 8.4L, Phosphorus Level 4.8, Aspartate Amino Transf (AST/SGOT) 41H, Alanine Aminotransferase (ALT/SGPT) 31, Alkaline Phosphatase 108, Total Bilirubin 0.4, Total Protein 7.0, Albumin 2.9L, Magnesium Level 1.8, Albumin/Globulin Ratio 0.71L 10/09/16 04:39: Anion Gap 6L, Glomerular Filtration Rate > 60.0, Blood Urea Nitrogen 19H, Creatinine 0.68, Sodium Level 139, Potassium Level 4.5, Chloride Level 102, Carbon Dioxide Level 31, Calcium Level 8.9 10/09/16 05:25: Blood Gas Bicarbonate Standard 29.1H, Arterial Blood pH 7.394, Arterial Blood Partial Pressure CO2 52.1H, Arterial Blood Partial Pressure O2 52.0L, Arterial Blood Total CO2 32.7H, Arterial Blood HCO3 31.1H, Arterial Blood Base Excess 5.4H, Arterial Blood Oxygen Saturation 82.8L 10/09/16 08:39: Total Creatine Kinase 44, Creatine Kinase MB 4.7H, Creatine Kinase MB Relative Index 10.68H, Troponin I 0.04# 10/09/16 14:39: Total Creatine Kinase 48, Creatine Kinase MB 3.9H, Creatine Kinase MB Relative Index 8.12H, Troponin I 0.03# CBC/BMP Laboratory Tests 10/09/16 01:47 Red Blood Count 3.34 L, Mean Corpuscular Volume 92.0, Mean Corpuscular Hemoglobin 27.0, Mean Corpuscular Hemoglobin Concent 29.4 L, Red Cell Distribution Width 15.2 H, Neutrophils (%) (Auto) 76.9 H, Lymphocytes (%) (Auto ) 12.9 L, Monocytes (%) (Auto) 5.6 H, Eosinophils (%) (Auto) 2.1, Basophils (%) (Auto) 0.7, Neutrophils # (Auto) 8.8 H, Lymphocytes # (Auto) 1.5, Monocytes # ( Auto) 0.6, Eosinophils # (Auto) 0.2, Basophils # (Auto) 0.1, Calcium Level 8.4 L , Phosphorus Level 4.8, Aspartate Amino Transf (AST/SGOT) 41 H, Alanine Aminotransferase (ALT/SGPT) 31, Alkaline Phosphatase 108, Total Bilirubin 0.4, Total Protein 7.0, Albumin 2.9 L 10/09/16 04:39 Red Blood Count 2.94 L, Mean Corpuscular Volume 92.0, Mean Corpuscular Hemoglobin 27.7, Mean Corpuscular Hemoglobin Concent 30.1 L, Red Cell Distribution Width 15.3 H, Calcium Level 8.9 Microbiology Microbiology 10/01/16 Acid Fast Stain - Final, Resulted 10/01/16 Mycobacterial Culture, Resulted Pending 10/01/16 Fungal Smear - Final, Resulted 10/01/16 Fungal Culture, Resulted Pending 10/01/16 Gram Stain - Final, Complete 10/01/16 Bronchoalveolar Lavage Culture - Final, Complete 09/30/16 Gram Stain - Final, Complete 09/30/16 Sputum Culture - Final, Complete Yeast Like Organism Everett Juarez MD Oct 09, 2016 22:46
--- NOTE | 2016-10-09 23:19 | ECGEPIP ---
Stationary ECG Study [facility] Test Date: 2016-10-09 Pat Name: ELA LIVINGSTON Department: Room: [place] [address] Gender: F Card Assembler: BONG CORONEL : 1945 Requested By: BERENICE BACH Order Number: [id number] Reading MD: Clinton Irvin Measurements Intervals [place] Rate: 120 P: 40 AK: 88 QRS: 22 QRSD: 112 T: 53 QT: 303 QTc: 428 Interpretive Statements SINUS TACHYCARDIA WITH SHORT [place] INTERVAL MODERATE INTRAVENTRICULAR CONDUCTION DELAY ST ELEVATION, PROBABLY EARLY REPOLARIZATION ST DEVIATION AND MODERATE T-WAVE ABNORMALITY, CONSIDER LATERAL ISCHEMIA Extensive baseline noise. Electronically Signed On 10-09-2016 23:18:58 EDT by Clinton Irvin
[2016-10-10] MEDS: IPRATROPIUM 0.5MG/ALBUTEROL 2.5MG INH SOL UD 3ML (DUONEB)(J7620) NEB SCH ×4 (02:00→20:00)
[2016-10-10] MEDS: methylPREDNISolone INJ 125 MG/2 ML VIAL (J2930) IV SCH ×2 (02:48→09:41)
[2016-10-10] MEDS: ALPRAZolam 0.5 MG TAB PO PRN ×2 (02:48→10:08)
[2016-10-10 04:33] VITALS: BP 190/80
[2016-10-10] MEDS: LEVOTHYROXINE 75MCG TABLET (0.075MG) PO SCH (05:19)
[2016-10-10] MEDS: SODIUM CHLORIDE 0.9% INJ 10 ML SYR IV SCH ×2 (05:19→17:43)
[2016-10-10 06:05] VITALS: BP 172/76
[2016-10-10 08:00] VITALS: BP 183/84
[2016-10-10] MEDS: HumaLOG INSULIN (NovoLOG) PER UNIT SC SCH ×4 (08:00→20:44)
[2016-10-10] MEDS: TIOTROPIUM INHALER/CAPSULE (SPIRIVA) INH SCH (08:30)
[2016-10-10] MEDS: ADVAIR HFA 230/21MCG INHALER INH SCH ×2 (08:30→20:53)
[2016-10-10] MEDS: LEVEMIR (INSULIN DETEMIR) 1 UNITS/0.01ML SC SCH (09:42)
[2016-10-10] MEDS: ATORVASTATIN 20 MG TAB PO SCH (09:42)
[2016-10-10] MEDS: GABAPENTIN 300 MG CAP PO SCH ×3 (09:43→20:18)
[2016-10-10] MEDS: oxyCODONE 15 MG CR TAB PO SCH ×2 (09:43→20:17)
[2016-10-10] MEDS: CLOPIDOGREL 75 MG TAB PO SCH (09:43)
[2016-10-10] MEDS: LISINOPRIL *2.5 MG* TAB PO SCH ×2 (09:43→20:18)
[2016-10-10] MEDS: FUROSEMIDE 20 MG TAB PO SCH (09:43)
[2016-10-10] MEDS: SODIUM CHLORIDE 0.9% INJ 10 ML SYR IV PRN (09:44)
[2016-10-10 12:00] VITALS: BP 182/78
[2016-10-10] MEDS: DOXYCYCLINE HYCLATE 100 MG TAB PO SCH (12:17)
[2016-10-10] MEDS: predniSONE 10 MG TAB PO SCH (12:45)
[2016-10-10 14:55] VITALS: BP 160/80
--- NOTE | 2016-10-10 14:59 | IPN ---
DATE: 10/10/2016 NOTE: I was asked by Dr. Juarez to reevaluate Ms. Ponce at the patient's request to make certain that she is optimized for discharge tomorrow. Ms. Ponce is a 71-year-old white female who had been seen earlier during this admission by Dr. Erickson, who is her outpatient leather stitcher. She is a 71-year-old white female with Gold stage IV emphysema with chronic hypoxic respiratory failure and significant difficulties with anxiety. She also was actively smoking at the time of her admission. Reportedly, she has done reasonably well during her hospitalization. When she first was admitted, she still had a right upper lobe opacity, thought to be secondary to pneumonia. Because it had persisted for several weeks, bronchoscopy was done, which was consistent with pneumonic process. She has remained afebrile throughout her hospitalization. She has had no increase in her oxygen requirements from her baseline FiO2 of 3 liters. Ms. Ponce has had some difficulty periodically with "panic attacks," which have resolved with Xanax, including one this morning. She experienced paroxysmal nocturnal dyspnea a couple of nights ago that was thought secondary to fluid overload, which responded to a diuretic and has not recurred. In fact, Ms. Ponce does not remember the episode of PND. She tells me at the present time that she is at her baseline level of dyspnea. She has a cough that is most typically productive of white to yellowish sputum. If she coughs "hard," it may have a greenish tinge to it. No hemoptysis. No chest pain or pressure. No significant wheezing. She has some lower extremity edema status post surgery. She denies any abdominal pain, nausea or emesis. As noted previously, outside of the episode the other evening, she denies PND or orthopnea. She has been maintained on the blue acapella in the hospital, although she feels that has to work "too hard" to use that device and does not care for it. She is on her baseline pulmonary regimen of access to rescue bronchodilator by nebulization, scheduled albuterol/ ipratropium bromide nebulization, an LAMA and an inhaled corticosteroid/long-acting bronchodilator combination medication. However, in reviewing her medications, she is also on methylprednisolone 80 mg every 8 hours , which was started on the evening of 10/09/2016, likely when she experienced the PND, now felt secondary to fluid overload. OBJECTIVE: PHYSICAL EXAMINATION: GENERAL: Ms. Ponce is lying in bed in no acute distress. She speaks in short sentences. She had one coughing episode while I was present but was unable to expectorate. VITAL SIGNS: Temperature 98.6, pulse 109, respiratory rate 18, blood pressure 183/84 with a mean arterial pressure of 117, SpO2 of 96% on room air. HEENT: Anicteric. Nares: Patent bilaterally. Oxygen tubing in place. Oropharynx clear with moist mucosa. NECK: Supple. Without thyromegaly or masses. Trachea is midline. No appreciable jugular venous distention (JVD). LYMPH: Without cervical or supraclavicular lymphadenopathy. CHEST: Increased diameter. LUNGS: Symmetric excursion. Markedly diminished air entry, occasional right upper lobe crackles heard anteriorly. No wheeze or rhonchi. Prolonged expiratory phase. Intermittent supraclavicular accessory muscle usage. No retractions. Hyperresonance to percussion. CARDIOVASCULAR: Regular rate and rhythm with a normal S1, S2, no murmur, rub, or gallop appreciated. Distant heart tones. ABDOMEN: Normoactive bowel sounds, soft, nondistended, nontender, no hepatosplenomegaly or masses appreciated. EXTREMITIES: Bilateral 1+ lower extremity edema. No cyanosis or clubbing. LABORATORY DATA: There is no new laboratory data from today. CBC from 10/09/2016 showed a hemoglobin 8.1, hematocrit 27, platelet count 179,000, white blood cell count 10,300 (slightly elevated but had received high-dose systemic corticosteroids). Chemistries from the same date showed a sodium 139, potassium 4.5, chloride 102, bicarbonate 31, anion gap 6, BUN 19, creatinine 0.68, glucose 397, calcium 8.9. She had serial troponin with her maximum troponin 0.04. Arterial blood gas from 10/09/2016 was 7.39/52/52 with a measured saturation of 83%. I do not know how much oxygen this was drawn on. I reviewed her chest x-ray as well as a report from 10/09/2016. That x-ray showed enlarged cardiac silhouette with evidence of pulmonary vascular congestion. There is a small left pleural effusion that was new, as well as increased interstitial markings consistent with pulmonary edema. The right upper lobe infiltrate is read as unchanged but, per my review, perhaps slightly improved compared to the chest x-ray from 10/01/2016. IMPRESSION: 1. Episodic dyspnea on exertion. I concur with Dr. Juarez and Ms. Ponce that these are likely anxiety related. She has significant lung disease and likely air traps when she does get upset leading to sensation of significant shortness of breath. These episodes have all resolved with benzodiazepine. 2. Paroxysmal nocturnal dyspnea (PND). It sounds like, based on the report, that this was an episode of paroxysmal nocturnal dyspnea related to fluid overload. This is consistent with the findings on chest x-ray and, per report, she clinically responded to diuretics. She does not recall the event. 3. GOLD stage IV emphysema with hypoxemia. She appears to be at her baseline level, and she is on her outpatient medications. I do not feel that she has experienced an exacerbation. 4. Abnormal chest x-ray with right upper lobe finding. This has been consistent with a pneumonic process. It is not unusual to see chest x-ray changes take 3 and even 6 months to normalize in the setting of emphysema. She has had a recent bronchoscopy with findings that are consistent with a pneumonic process. 5. Tobacco usage, ongoing at the time of admission. She assures me that she has now quit smoking and will not resume once she goes home. RECOMMENDATIONS: 1. I recommend continuing her home regimen as you are doing. 2. Recommend discontinuing systemic corticosteroids and restarting prednisone 10 mg by mouth daily which Dr. Erickson has requested that she remain on until she is seen in followup in pulmonary clinic. 3. Would continue doxycycline 100 mg by mouth daily as previously written by Dr. Erickson. 4. I counseled her on the importance of complete tobacco cessation. 5. From a pulmonary perspective, I have no contraindication for her to be discharged to home. 6. Would have her followup as previously scheduled by Dr. Erickson. 7. I discussed these recommendations with Dr. Juarez. [facility]ITALWinnie
[2016-10-10 22:00] VITALS: BP 160/68
--- NOTE | 2016-10-10 23:17 | IPNPDOC ---
Date Seen The patient was seen on 10/10/16. Progress Note SUBJECTIVE: Patient is without complaints. OBJECTIVE PHYSICAL EXAMINATION: VITAL SIGNS: Please see below. GENERAL: Lying in bed comfortably HEENT: Normal CARDIOVASCULAR: Regular rate and rhythm. RESPIRATORY: Decreased breath sounds at the bases. ABDOMINAL: Soft nontender nondistended EXTREMITIES: Right lower extremity shows good perfusion with healing ulcers. Left third toe ischemic changes stable and no significant exchange trouble shooter the last 24 hours. NEUROLOGICAL: Awake alert oriented x3 PSYCHOLOGICAL: R Demario LABORATORY DATA: Please see below. MICROBIOLOGY: Please see below. 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 Patient has undergone bilateral common iliac artery angioplasty and stenting would improve perfusion to both lower extremities. Patient has a significant tobacco history as well as right lung pneumonia and breathing issues. PROBLEMS: 1. 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 Patient understands that in the future she may require bypass surgery for healing of her wounds and prevention of loss of limb but at this point wishes to continue conservative measures. She has been started on Plavix.. 2. right lung pneumonia and COPD: She was reevaluated by Dr. Esparza whose input is much appreciated. Patient is stable for discharge from a pulmonary standpoint. DISPOSITION: Possible discharge on October 11, 2016. VS, I&O, 24H, Fishbone Vital Signs/I&O Vital Signs Date Time Temp Pulse Resp B/P (MAP) Pulse Ox O2 Delivery O2 Flow Rate FiO2 10/10/16 22:00 97.7 93 20 160/68 (98) 98 Nasal Cannula 3.0 I&O- Last 24 Hours up to 6 AM 10/10/16 06:00 Intake Total 1560 ml Output Total 450 ml Balance 1110 ml Laboratory Data Microbiology Microbiology 10/01/16 Acid Fast Stain - Final, Resulted 10/01/16 Mycobacterial Culture, Resulted Pending 10/01/16 Fungal Smear - Final, Resulted 10/01/16 Fungal Culture, Resulted Pending 10/01/16 Gram Stain - Final, Complete 10/01/16 Bronchoalveolar Lavage Culture - Final, Complete 09/30/16 Gram Stain - Final, Complete 09/30/16 Sputum Culture - Final, Complete Yeast Like Organism Everett Juarez MD Oct 10, 2016 23:17
[2016-10-11] MEDS: IPRATROPIUM 0.5MG/ALBUTEROL 2.5MG INH SOL UD 3ML (DUONEB)(J7620) NEB SCH ×3 (01:07→13:49)
[2016-10-11] MEDS: LEVOTHYROXINE 75MCG TABLET (0.075MG) PO SCH (05:40)
[2016-10-11] MEDS: SODIUM CHLORIDE 0.9% INJ 10 ML SYR IV SCH (05:41)
[2016-10-11] MEDS: ALPRAZolam 0.5 MG TAB PO PRN ×2 (05:47→13:45)
[2016-10-11 06:00] VITALS: BP 131/53
[2016-10-11] MEDS: TIOTROPIUM INHALER/CAPSULE (SPIRIVA) INH SCH (08:00)
[2016-10-11] MEDS: ADVAIR HFA 230/21MCG INHALER INH SCH (08:13)
[2016-10-11 08:50] VITALS: BP 178/82
[2016-10-11] MEDS: GABAPENTIN 300 MG CAP PO SCH ×2 (08:50→16:04)
[2016-10-11] MEDS: DOXYCYCLINE HYCLATE 100 MG TAB PO SCH (08:50)
[2016-10-11] MEDS: oxyCODONE 15 MG CR TAB PO SCH (08:50)
[2016-10-11] MEDS: ATORVASTATIN 20 MG TAB PO SCH (08:50)
[2016-10-11] MEDS: predniSONE 10 MG TAB PO SCH (08:51)
[2016-10-11] MEDS: FUROSEMIDE 20 MG TAB PO SCH (08:51)
[2016-10-11] MEDS: CLOPIDOGREL 75 MG TAB PO SCH (08:52)
[2016-10-11 08:53] VITALS: BP 178/82
[2016-10-11] MEDS: LISINOPRIL *2.5 MG* TAB PO SCH (08:53)
[2016-10-11] MEDS: HumaLOG INSULIN (NovoLOG) PER UNIT SC SCH ×2 (08:54→12:53)
[2016-10-11] MEDS: LEVEMIR (INSULIN DETEMIR) 1 UNITS/0.01ML SC SCH (08:56)
[2016-10-11] MEDS ORDERED: INFLUENZA VIRUS VACCINE HIGH DOSE 0.5 ML SYRINGE (90662) IM ONE (09:00)
[2016-10-11] MEDS ORDERED: CLOP75TA2 PO ×2 (09:25→12:24)
[2016-10-11] MEDS ORDERED: NORCOTAB PO ×2 (09:25→12:24)
[2016-10-11] MEDS ORDERED: ALPR0.5T3 PO ×2 (09:25→12:24)
[2016-10-11] MEDS ORDERED: LISI2.5T4 PO ×2 (09:25→12:24)
[2016-10-11] MEDS ORDERED: DOXY100T2 PO ×2 (09:25→12:24)
[2016-10-11] MEDS ORDERED: FURO20TA2 PO ×2 (09:25→12:24)
[2016-10-11] MEDS ORDERED: ADVA230A INH ×2 (09:25→12:24)
[2016-10-11] MEDS ORDERED: PRED10TA2 PO ×2 (09:25→12:24)
[2016-10-11] MEDS ORDERED: OXYC15TA66 PO ×2 (09:25→12:24)
[2016-10-11] MEDS ORDERED: TIOT18INH INH ×2 (09:25→12:24)
--- NOTE | 2016-10-11 09:36 | DS.PDOC ---
Discharge Summary General Date of Admission Sep 26, 2016 at 07:59 Date of Discharge 10/11/2016 Attending Physician: Everett Juarez MD Specialist/Consultants Involve: RASTA RAO Discharge Summary PROCEDURES PERFORMED DURING STAY: Right lower extremity angiogram with angioplasty and stenting of the bilateral common iliac arteries. Left lower extremity angiogram. Bronchoscopy with biopsies and bronchial alveolar lavage. ADMITTING DIAGNOSES: 1. Right lower extremity ischemia with ulceration of the right foot and toes. 2. COPD with right lung mass. 3. Right lower extremity rest pain. DISCHARGE DIAGNOSES: 1. Right lower extremity ischemia with ulceration of the right foot and toes. 2. COPD with right lung pneumonia. 3. Right lower extremity rest pain. 4. Right superficial femoral arterial occlusion with arterial atherosclerotic disease. 5. Left superficial femoral artery occlusion with arterial atherosclerotic disease. 6. Aortoiliac atherosclerotic arterial occlusive disease. COMPLICATIONS/CHIEF COMPLAINT: Right Leg Ischemia. HISTORY OF PRESENT ILLNESS: Patient is a 71-year-old female who was admitted with rest pain in the right lower extremity and arterial ulcerations of the right foot and toes. HOSPITAL COURSE: Patient was admitted underwent right lower extremity angiogram with angioplasty and stenting of the common iliac arteries bilaterally with improved flow to both lower extremities. Patient was evaluated by Dr. Rao who performed a bronchoscopy for a right lung mass which was determined to be pneumonia. Patient developed new ischemic changes in the left foot and underwent a left lower extremity angiogram. Patient has improved flow in the both lower extremities and does not wish to proceed with any further intervention at this time and will be treated with medical management. Patient had pulmonary issues during the hospitalization which are improving with the help of Dr. Rao and the patient is now stable for discharge. DISCHARGE MEDICATIONS: Please see below. ALLERGIES: Please see below. PHYSICAL EXAMINATION ON DISCHARGE: VITAL SIGNS: Please see below. GENERAL: Lying in bed comfortably HEENT: Normal NECK: Supple without carotid bruits CARDIOVASCULAR EXAMINATION: Regular rate and rhythm RESPIRATORY EXAMINATION: Decreased breath sounds at the bases ABDOMINAL EXAMINATION: Soft nontender nondistended EXTREMITIES: Lower extremity is are well perfused. Ulcers on the right foot and toes are healing. Ischemic change of the left third toe has resolved. SKIN: Warm and well perfused NEUROLOGICAL EXAMINATION: Awake, alert, and oriented 3 with no focal deficits. PSYCHIATRIC EXAMINATION: Normal LABORATORY DATA: Please see below. PROGNOSIS: Good ACTIVITY: As tolerated. DIET: Diabetic diet. DISCHARGE PLAN: Patient will be discharged to home with visiting nurse care and home PT therapy. Patient will follow-up with Dr. Rao in 1 week. Patient will follow up with myself in 1 week. DISPOSITION: Home with home nursing and physical therapy. DISCHARGE INSTRUCTIONS: 1. No smoking. 2. Dry dressing to the right foot wounds. 3. Patient may shower. ITEMS TO FOLLOWUP ON ON OUTPATIENT: 1. Follow-up with Dr. Rao for pulmonary. 2. Follow up with myself for her bilateral lower extremity arterial occlusive disease and right foot wounds. 3. No smoking. DISCHARGE CONDITION: Stable. TIME SPENT ON DISCHARGE: Greater than 45 minutes. Vital Signs/I&Os Vital Signs Date Time Temp Pulse Resp B/P (MAP) Pulse Ox O2 Delivery O2 Flow Rate FiO2 10/11/16 08:53 178/82 10/11/16 08:50 18 10/11/16 06:00 97.1 83 97 Nasal Cannula 2.0 I&O- Last 24 Hours up to 6 AM 10/11/16 05:59 Intake Total 2340 ml Output Total 900 ml Balance 1440 ml Microbiology Microbiology 10/01/16 Acid Fast Stain - Final, Resulted 10/01/16 Mycobacterial Culture, Resulted Pending 10/01/16 Fungal Smear - Final, Resulted 10/01/16 Fungal Culture, Resulted Pending 10/01/16 Gram Stain - Final, Complete 10/01/16 Bronchoalveolar Lavage Culture - Final, Complete Discharge Medications Scheduled (Anoro Ellipta 62.5-25 Mcg/INH) 1 Aer Aer, 1 AER INH DAILY, (Reported) Atorvastatin Calcium (Atorvastatin Calcium) 20 Mg Tab, 40 MG PO DAILY, (Reported ) Clopidogrel Bisulfate (Clopidogrel) 75 Mg Tab, 75 MG PO DAILY Doxycycline Hyclate (Doxycycline Hyclate) 100 Mg Tab, 100 MG PO DAILY Furosemide (Furosemide) 20 Mg Tab, 20 MG PO DAILY Gabapentin (Gabapentin) 100 Mg Cap, 600 MG PO TID, (Reported) Insulin Glargine (Lantus) 1 Units/0.01 Ml Susp, 14 UNITS SC DAILY, (Reported) Levothyroxine Sodium (Levoxyl) 75 Mcg Tab, 75 MCG PO DAILY, (Reported) Lisinopril (Lisinopril) 2.5 Mg Tab, 2.5 MG PO BID Oxycodone HCl (Oxycontin) 15 Mg Tab, 15 MG PO BID Prednisone (Prednisone) 10 Mg Tab, 10 MG PO DAILY Salmeterol/Fluticasone (Advair Hfa 230-21 Mcg/Act) 1 Aer Aer, 2 PUFF INH BID Tiotropium Pender Monohydrate (Spiriva Handihaler) 5 Inhalation/Inhaler Powd, 1 INHALATION INH DAILY@08 Vitamin D (Drisdol) 50,000 Unit Cap, 50,000 UNIT PO QWEEK, (Reported) SUNDAYS Scheduled PRN Acetaminophen/Hydrocodone (Hydrocodone/Acetaminophen 5-325 mg) 1 Tab Tab, 1 TAB PO QID PRN for PAIN, (Reported) Acetaminophen/Hydrocodone ([place], A[place] 5/325) 1 Tab Tab, 1 TAB PO Q4HP PRN for MILD/MODERATE PAIN (PS 1-7) Albuterol Sulfate (Proair Hfa) 108 Mcg/Act Aer, 2 PUFF INH QID PRN for SHORTNESS OF BREATH, (Reported) Alprazolam (Alprazolam) 0.5 Mg Tab, 0.5 MG PO Q6HP PRN for ANXIETY Allergies Coded Allergies: Latex (Unverified Allergy, Intermediate, RASH, 07/24/16) Red Dye (Unverified Allergy, Intermediate, rash, 12/19/15) Sulfa Antibiotics (Verified Allergy, Intermediate, RASH, 12/19/15) Bacitracin (Unverified Allergy, Unknown, 10/05/15) Cortisone (Unverified Allergy, Unknown, 10/05/15) Fluoxetine (Unverified Allergy, Unknown, 10/05/15) Neomycin (Unverified Allergy, Unknown, 10/05/15) Polymyxin B (Unverified Allergy, Unknown, 10/05/15) Tramadol (Unverified Allergy, Unknown, 10/05/15) Acetaminophen (Unverified Adverse Reaction, Mild, UPSETS STOMACH, 07/24/16) Oxycodone (Verified Adverse Reaction, Mild, itchy, 07/24/16) Everett Juarez MD Oct 11, 2016 09:36
--- NOTE | 2016-10-15 09:05 | REPKIM ---
DATE OF PROCEDURE: 09/24/2016 PREPROCEDURE DIAGNOSIS: Poor venous access, right lower extremity atherosclerotic occlusive disease. POSTPROCEDURE DIAGNOSIS: Poor venous access, right lower extremity atherosclerotic arterial occlusive disease. PROCEDURE: Ultrasound and fluoroscopic guided 48 cm left brachial vein PICC line insertion. SURGEON: Dr. Everett Juarez. AIRPLANE TUBE BUILDER: Nichole Gomez and Iris Ibrahim. ANESTHESIA: Local with sedation with 2 mg of Versed and 125 mcg of Fentanyl. ESTIMATED BLOOD LOSS: FLUORO TIME: 0.1 minutes. LOCAL: 1 mL of 2% lidocaine. INDICATION: Patient is a 71-year-old female with poor venous access and a right lower extremity ischemic leg who requires access for medication installation and blood draws. Patient will undergo placement of a right upper extremity PICC line. Risks, benefits and alternative treatment options were discussed with the patient. Benefits included access for blood draws and medications. Alternative treatment options including but were not limited to no intervention. Risks included but were not limited to infection, bleeding, renal failure requiring hemodialysis, pneumothorax, hemothorax, possible need for open surgical intervention, cerebrovascular accident, myocardial infarction, pulmonary embolus, deep venous thrombosis (DVT), loss of limb, loss of life and poor outcome. Patient's questions were answered. Patient voices understanding of these risks, benefits and alternative treatment options. Patient accepts these risks and agrees to proceed with a right upper extremity PICC line insertion. PROCEDURE: The patient was taken to the angiography suite and placed supine on the angiography room table and the right upper extremity was prepped and draped in a standard surgical fashion. The ultrasound was used to evaluate the veins in the right upper extremity and the patient was noted to have a large brachial vein which was easily compressible, widely patent and free of thrombus. The ultrasound was then used to guide cannulation of the right brachial vein with concurrent visualization of the needle entering into the right brachial vein with a hard copy image preserved. The micropuncture wire was advanced through the micropuncture needle which was upsized to a micropuncture sheath. The distance through the superior vena cava/right atrial junction was measured with the wire and then the catheter was cut to a 48 cm length. Catheter was then advanced through the introducer sheath and positioned with the tip in the superior vena cava/right atrial junction. Both ports of the PICC line were aspirated and noted to aspirate easily and then flushed with heparinized saline. Dressings were then applied. Patient tolerated the procedure well. All instrument, sponge and needle counts were correct at the end of the case. There were no complications. Dr. Juarez was present for and directed the entire case. Patient was transferred to the holding area and subsequently to the floor in stable condition. RADIOLOGIC SUPERVISION AND INTERPRETATION: The initial ultrasound showed the left brachial vein to be widely patent, easily compressible and free of thrombus. The ultrasound was used to guide cannulation of the left brachial vein just above the antecubital fossa with concurrent visualization with real-time ultrasound of the needle entering into the left brachial vein. A hard copy image of the ultrasound guided cannulation was preserved. Final fluoroscopic image showed the catheter with the tip in the superior vena cava/right atrial junction with no pneumo- or hemothorax noted.
--- NOTE | 2016-10-16 08:26 | REPKIM ---
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 PROCEDURE: Aortogram, iliofemoral angiogram, selective right common femoral arterial catheter placement with right lower extremity angiogram, bilateral common iliac artery angioplasty and stenting with 10 x 49 Wallstent dilated with 8 x 4 balloons, bilateral Mynx closure device, aortic angioplasty with two 8 x 4 balloons simultaneously. ATTENDING SURGEON: Dr. Everett Juarez ASSISTANTS: Nichole Gomez, RT, and Iris Ibrahim RT. ANESTHESIA: Local with sedation with 2 mg of Versed, 100 mcg of Fentanyl, and 19 mL of 2% lidocaine. FLUOROSCOPIC TIME: 7.7 minutes. CONTRAST: 21 mL. SEDATION TIME: From 11:55 a.m. to 12:50 p.m. with the sedation and cardiopulmonary monitoring performed by the nurse in the room under my direct supervision and direction. HEPARIN: 5000 units. PROTAMINE: 50 mg. COMPLICATIONS: None. DRAINS: None. SPECIMENS: None. IMPLANTS: Right common iliac artery angioplasty and stenting with a 10 x 49 Wallstent, left common iliac artery angioplasty and stenting with a 10 x 49 Wallstent. INDICATION: Patient is a 71-year-old female with critical limb ischemia and rest pain with ulceration in the right lower extremity. Patient will undergo angiogram with possible angioplasty and stent. Risks, benefits, and alternative treatment options were discussed with the patient. Alternative treatment options included, but were not limited to, no intervention. Benefits included, but were not limited to, resolution of the blockages in the lower extremity with resolution of the symptoms and healing of the ulcers. Risks included, but were not limited to, infection, bleeding, renal failure requiring hemodialysis, possible need for open surgical intervention, cerebrovascular accident, myocardial infarction, retroperitoneal hematoma, pulmonary embolus, deep venous thrombosis (DVT), loss of limb, loss of life, and poor outcome. Patient's questions were answered. Patient voices understanding of these risks, benefits, and alternative treatment options. Patient agrees to proceed with a right lower extremity angiogram with possible angioplasty and/or stenting with associated risks discussed with the patient. DESCRIPTION OF PROCEDURE: Patient was taken to the angiography suite, placed supine on the angiography room stable, and the patient was prepped and draped in a standard surgical fashion. A time-out was then conducted by myself and the team members in the room, confirming the correct patient, procedure, and laterality. The left common femoral artery was then cannulated with a micropuncture needle after anesthetizing the overlying skin with 1% lidocaine. A micropuncture wire was advanced through the micropuncture needle, which was upsized to a micropuncture sheath. A CrushBlvdson wire was advanced through the micropuncture sheath, which was upsized to a #5-Kiswahili sheath. An Omni Flush catheter was then placed in the aorta, and an aortogram was performed. Catheter was pulled down to level of the bifurcation of the iliac arteries, and an iliofemoral angiogram was performed. Catheter was directed over the bifurcation of the iliac arteries with some difficulty and placed in the right common femoral artery, and a right lower extremity angiogram was performed. The right common femoral artery was then cannulated with a micropuncture needle after anesthetizing the overlying skin with 1% lidocaine and, subsequently, a #6-Kiswahili sheath was placed. The left femoral #5-Kiswahili sheath was exchanged for a #6-Kiswahili sheath. Patient was given 5000 units of heparin. The common iliac arteries were angioplastied and stented with 10 x 49 Wallstent bilaterally, which were both dilated with 8 x 4 balloons. The balloons were then inserted into the aorta and simultaneously inflated for angioplasty of the distal infrarenal aorta. A completion angiogram was performed showing resolution of the stenoses within the aorta and the common iliac arteries and good flow into both lower extremities. Catheters and wires were removed. The sheaths were removed, and the Mynx closure device was used to close the arteriotomy in the right and left common femoral arteries. Dressings were then applied. Patient tolerated the procedure well. All instrument, sponge, and needle counts were correct at the end of the case. There were no complications. Dr. Juarez was present for and directed the entire case. Patient was transferred to the holding area and subsequently to the floor in stable condition. RADIOLOGIC SUPERVISION INTERPRETATION: The initial aortogram showed the aorta to be extensively calcified with multiple areas of calcific occlusive disease in the distal aorta just above the bifurcation of the iliac arteries. The renal arteries were patent and extensively calcified as well as the celiac and superior mesenteric arteries. The common iliac arteries showed stenosis along their course and were extensively calcified with atherosclerotic plaque. There was a stenosis of the common iliac artery on the right of approximately 80% along its course to the junction of the external iliac artery. The left common iliac artery shortly after its takeoff showed an approximately 80% stenosis. The internal iliac artery on the right was small in caliber. The left internal iliac artery was also noted to be small in caliber. The left common femoral arteries were patent with bilateral profunda femoris outflow with occlusion of both superficial femoral arteries. The left lower extremity was not visualized below the puncture site. The aorta was then angioplastied with two 8 x 4 balloons. The common iliac arteries were angioplastied with 10 x 49 Wallstents and both dilated with 8 x 4 balloons. An angiogram was then performed, showing the aorta and both iliac arteries to be widely patent. A right lower extremity angiogram was performed, which showed the superficial femoral artery to be occluded shortly after its origin with profunda as the main outflow into the right lower extremity. There was reconstitution of the above-knee popliteal artery via collaterals from the right profunda femoris artery with occlusion of the superficial femoral artery in the right lower extremity. Bilateral Mynx closure devices were used to close the arteriotomies in the right and left common femoral arteries. The runoff in the below-knee region on the right lower extremity was via the anterior tibial, which was dominant. The tibioperoneal trunk and peroneal artery and posterior tibial artery were small in caliber but patent into the mid calf where there was no further visualization of either vessel. The above- and below-knee popliteal artery also showed diffuse atherosclerotic arterial occlusive disease, which was mild to moderate.
--- NOTE | 2016-10-16 11:26 | REPKIM ---
DATE OF PROCEDURE: 10/08/2016 PREPROCEDURE DIAGNOSIS: Left lower extremity ischemic 3rd toe. POSTPROCEDURE DIAGNOSIS: Left lower extremity ischemic 3rd toe. PROCEDURE: Aortogram, iliofemoral angiogram bilateral lower extremity angiography, Mynx closure of the right common femoral arteriotomy. SURGEON: Dr. Albania Juarez WATER QUALITY ASSISTANT: Neftali Schwartz. ANESTHESIA: Local with sedation with 0.5 mg Versed, 50 mcg of fentanyl. Sedation time was from 1520 to 1530. CONTRAST: 15 mL. COMPLICATION: None. DRAINS: None. SPECIMENS: None. IMPLANTS: Right femoral Mynx closure. INDICATION: The patient is a 71-year-old female with right lower extremity ischemic foot and atherosclerotic arterial occlusive disease who underwent angioplasty and stenting of her common iliac arteries. The patient now has a new ischemic change in her left 3rd toe and will undergo angiogram of the left lower extremity. Risks, benefits, and alternative treatment options were discussed with the patient. DESCRIPTION OF PROCEDURE: The patient was taken to the angiography suite, placed supine on the angiography table and the patient was prepped and draped in a standard surgical fashion. There right common femoral artery was then cannulated with a micropuncture needle after anesthetizing the overlying skin with 1% lidocaine. The micropuncture wire was advanced through the micropuncture needle which was up-sized to a micropuncture sheath. A Bentson wire was advanced through the micropuncture sheath, which was up-sized to a #5-Vincentian sheath. An Omni Flush catheter was advanced over the Bentson wire, placed in the aorta and then aortogram and iliofemoral angiogram with bilateral lower extremity angiograph was performed due to inability to traverse through the bifurcation of the iliac arteries through the previously placed stents. The catheters and wires were removed and a Mynx closure device was used to close the arteriotomy in the right common femoral artery with an additional 10 minutes of adjunctive pressure applied for hemostasis. Dressing were then applied. The patient tolerated the procedure well. All instruments, sponge and needle counts were correct at the end of the case. There were no complications. Dr. Juarez was present for and directed the entire case. The patient was transferred to the holding area and subsequently to the floor in stable condition. RADIOLOGIC SUPERVISION INTERPRETATION: The left lower extremity showed occlusion of the superficial femoral artery at its origin with reconstitution of the above knee popliteal artery. ?
== END 2016-10-11 16:30 | disposition home health service (06) | DRG 252 ==
LOC: M MSPAV 15:21 → OBSVTOIN 09-26 07:59 → M PCU 09-28 01:30 → M MS5PR 10-04 18:39 → M PCU 10-09 02:59 → M MSPAV 10-10 14:53
PROVIDERS: ADMIT Surgery Vascular Surgery; ATTEND Surgery Vascular Surgery
PROC: 047C3D6 (ICD-10-PCS; principal; 2016-09-24)
PROC: 047D3D6 (ICD-10-PCS; 2016-09-24)
PROC: 04703ZZ Dilation of Abdominal Aorta, Percutaneous Approach (ICD-10-PCS; 2016-09-24)
PROC: 02HV33Z Insertion of Infusion Device into Superior Vena Cava, Percutaneous Approach (ICD-10-PCS; 2016-09-24)
PROC: 0BBC8ZX Excision of Right Upper Lung Lobe, Via Natural or Artificial Opening Endoscopic, Diagnostic (ICD-10-PCS; 2016-10-01)
PROC: 0B9C8ZZ Drainage of Right Upper Lung Lobe, Via Natural or Artificial Opening Endoscopic (ICD-10-PCS; 2016-10-01)
PROC: 04QK3ZZ Repair Right Femoral Artery, Percutaneous Approach (ICD-10-PCS; 2016-10-08)
DX: I70.235 Atherosclerosis of native arteries of right leg with ulceration of other part of foot (principal); J18.9 Pneumonia, unspecified organism; J96.11 Chronic respiratory failure with hypoxia; J44.9 Chronic obstructive pulmonary disease, unspecified; F32.9 Major depressive disorder, single episode, unspecified; E11.40 Type 2 diabetes mellitus with diabetic neuropathy, unspecified; I70.0 Atherosclerosis of aorta; F17.210 Nicotine dependence, cigarettes, uncomplicated; R91.8 Other nonspecific abnormal finding of lung field; I12.9 Hypertensive chronic kidney disease with stage 1 through stage 4 chronic kidney disease, or unspecified chronic kidney disease; F41.0 Panic disorder [episodic paroxysmal anxiety]; E87.70 Fluid overload, unspecified; L97.519 Non-pressure chronic ulcer of other part of right foot with unspecified severity; E11.22 Type 2 diabetes mellitus with diabetic chronic kidney disease; N18.9 Chronic kidney disease, unspecified; Z99.81 Dependence on supplemental oxygen; Z91.040 Latex allergy status; Z91.041 Radiographic dye allergy status; Z88.2 Allergy status to sulfonamides; Z88.5 Allergy status to narcotic agent; Z88.1 Allergy status to other antibiotic agents; Z88.6 Allergy status to analgesic agent; Z88.8 Allergy status to other drugs, medicaments and biological substances; Z79.4 Long term (current) use of insulin

== ENCOUNTER → 2016-10-23 | Outpatient (CLI) | payer OTHER ==
[~2016-10-23] MED LIST changes: +ADVA230A INH; +ALBU83IN INH; +ALPR0.5T3 PO; +AMLO5TAB2 PO; +ANOR1AER INH; +ASPI81CH PO; +CLOP75TA2 PO; +DOXY100T2 PO; +DRIS50002 PO; +FERR1TAB8 PO; +FURO20TA2 PO; +GABA-279 PO; +HYDR10TAB PO; +LEVA750T7 PO; +LEVO75TA34 PO; +LISI-542 PO; +LISI2.5T3 PO; +LISI2.5T4 PO; +NORC1TAB4 PO; +NORCOTAB PO; -NS 1,000 ML IV SCH; +OXYC15TA66 PO; +PRED10TA2 PO; +PRED5TA PO; +PROAAER10 INH; +SPIR1CAP INH; +TIOT18INH INH; +VITA500T PO
[2016-10-23 13:32] LABS: BASO % 0.2 % (0.0-1.0); EOS # 0.2 K/mm3 (0.0-0.50); LYMPH # 0.8 K/mm3 (1.5-4.5); LYMPH % 8.8 % (24.0-44.0); MEAN CORPUSCULAR HEMOGLOBIN 26.9 pg (27.0-33.0); MEAN CORPUSCULAR HGB CONC 30.1 g/dl (32.0-36.5); MEAN CORPUSCULAR VOLUME 89.5 fl (80.0-96.0); MONO # 0.4 K/mm3 (0.0-0.8); MONO % 4.7 % (0.0-5.0); NEUTROPHILS # 6.4 K/mm3 (1.8-7.7); NEUTROPHILS % 82.4 % (36.0-66.0); RED CELL DISTRIBUTION WIDTH 14.7 % (11.5-14.5); WHITE BLOOD COUNT 7.8 K/mm3 (4.0-10.0)
[2016-10-23 13:40] LABS: ALBUMIN 3.4 GM/DL (3.2-5.2); ALBUMIN/GLOBULIN RATIO 0.92 (1.00-1.93); ALKALINE PHOSPHATASE 89 U/L (45-117); ALT/SGPT 19 U/L (12-78); ANION GAP 7 MEQ/L (8-16); AST/SGOT 15 U/L (15-37); BILIRUBIN,TOTAL 0.5 MG/DL (0.2-1.0); BLOOD UREA NITROGEN 12 MG/DL (7-18); CALCIUM LEVEL 9.1 MG/DL (8.8-10.2); CARBON DIOXIDE LEVEL 30 MEQ/L (21-32); CHLORIDE LEVEL 101 MEQ/L (98-107); CHOLESTEROL LEVEL 152 MG/DL (<200); CREATININE FOR GFR 0.77 MG/DL (0.55-1.02); GLOMERULAR FILTRATION RATE > 60.0 (>39); GLUCOSE, FASTING 272 MG/DL (83-110); POTASSIUM SERUM 4.4 MEQ/L (3.5-5.1); SODIUM LEVEL 138 MEQ/L (136-145); TOTAL PROTEIN 7.1 GM/DL (6.4-8.2); TRIGLYCERIDES LEVEL 134 MG/DL (<150)
== END ==
LOC: M WUC 09:31
PROVIDERS: ATTEND Physician Assistant Medical
DX: E11.9 Type 2 diabetes mellitus without complications (principal)

== ENCOUNTER 2016-11-26 01:59 | Inpatient (IN) | payer OTHER, MEDICARE ==
[~2016-11-26] VITALS: Ht 160 cm; Wt 54.4 kg
[~2016-11-26 01:59] MED LIST changes: -ALBU83IN INH; -AMLO5TAB2 PO; -ASPI81CH PO; -FERR1TAB8 PO; -HYDR10TAB PO; -LEVA750T7 PO; -LISI-542 PO; -LISI2.5T3 PO; -NORC1TAB4 PO; -PRED5TA PO; -SPIR1CAP INH; -VITA500T PO
[2016-11-26 02:38] LABS: BASO % 0.7 % (0.0-1.0); EOS # 0.2 10^3/uL (0.0-0.50); EOS % 2.5 % (0.0-3.0); IMMATURE GRANULOCYTE % 0.5 % (0-0); LYMPH # 0.8 10^3/uL (1.5-4.5); LYMPH % 12.5 % (24.0-44.0); MEAN CORPUSCULAR HEMOGLOBIN 25.4 pg (27.0-33.0); MEAN CORPUSCULAR HGB CONC 29.1 g/dl (32.0-36.5); MEAN CORPUSCULAR VOLUME 87.2 fl (80.0-96.0); MONO # 0.4 10^3/uL (0.0-0.8); MONO % 7.1 % (0.0-5.0); NEUTROPHILS # 4.6 10^3/uL (1.8-7.7); NEUTROPHILS % 76.7 % (36.0-66.0); PLATELET COUNT, AUTOMATED 179 10^3/uL (150-450); RED CELL DISTRIBUTION WIDTH 14.8 % (11.5-14.5)
[2016-11-26] MEDS: IPRATROPIUM 0.5MG/ALBUTEROL 2.5MG INH SOL UD 3ML (DUONEB)(J7620) NEB SCH ×5 (02:54→19:57)
[2016-11-26 02:57] LABS: INR 0.98
[2016-11-26 03:04] LABS: ABG BASE EXCESS 1.9 (-2.0-2.0); ABG HCO3 27.5 MEQ/L (22.0-26.0); ABG PARTIAL PRESSURE CO2 47.6 mmHg (35.0-45.0); ABG PARTIAL PRESSURE O2 92.4 mmHg (75.0-100.0); ABG STANDARD HCO3 26.1 MEQ/L (22.0-26.0); ABG TOTAL CO2 28.9 MEQ/L (23.0-31.0); ABG pH (ARTERIAL) 7.379 UNITS (7.350-7.450)
[2016-11-26 03:04] LABS: ANION GAP 3 MEQ/L (8-16); BLOOD UREA NITROGEN 16 MG/DL (7-18); CALCIUM LEVEL 8.9 MG/DL (8.8-10.2); CARBON DIOXIDE LEVEL 33 MEQ/L (21-32); CHLORIDE LEVEL 102 MEQ/L (98-107); GLOMERULAR FILTRATION RATE > 60.0 (>39); POTASSIUM SERUM 3.9 MEQ/L (3.5-5.1); SODIUM LEVEL 138 MEQ/L (136-145)
[2016-11-26 03:06] LABS: GLUCOSE, FASTING 463 MG/DL (83-110)
--- NOTE | 2016-11-26 03:54 | REP ---
Clinical: Shortness of breath and cough. Technique: PA and lateral. Comparison: 10/09/2016. Findings: Mediastinum and cardiac silhouette are stable. Lung ferrell demonstrate diffuse chronic interstitial changes with scattered fibrosis/scarring. Vague opacity in the right upper lobe is again identified and similar to prior examination. Blunting of the bilateral costophrenic angles appears relatively chronic. No pneumothorax. Impression: Diffuse chronic changes as described above including opacity in the right upper lobe and blunting of the costophrenic angles. Superimposed acute process cannot be excluded. Signed by Danis Greenfield MD 11/26/2016 03:45 A
[2016-11-26] MEDS ORDERED: PIPERACILLIN/TAZOBACTAM SOD 3.375 GM in D5W 50 ML IV ONE (04:45)
[2016-11-26] MEDS ORDERED: VANCOMYCIN HCL 1,000 MG, VIAL MATE ADAPTER 1 EACH in D5W 250 ML IV ONE (04:45)
[2016-11-26] MEDS ORDERED: LISI2.5T3 PO (04:59)
[2016-11-26] MEDS ORDERED: ALBU83IN INH (04:59)
[2016-11-26] MEDS ORDERED: ASPI81CH PO (04:59)
[2016-11-26] MEDS ORDERED: CLOP75TA2 PO (04:59)
[2016-11-26] MEDS ORDERED: OXYC15TA66 PO (04:59)
[2016-11-26] MEDS ORDERED: PRED5TA PO (04:59)
[2016-11-26] MEDS ORDERED: SPIR1CAP INH (04:59)
[2016-11-26] MEDS ORDERED: GABA600T PO (04:59)
[2016-11-26] MEDS ORDERED: ALPR0.5T3 PO (04:59)
[2016-11-26] MEDS ORDERED: NORC1TAB4 PO (04:59)
[2016-11-26] MEDS ORDERED: DEXTROSE 50% 50 ML SYRINGE IV PRN (05:00)
[2016-11-26] MEDS ORDERED: GLUCAGON FOR INJ 1 MG VIAL (J1610) SC PRN (05:00)
[2016-11-26] MEDS ORDERED: GLUCOSE 4 GM CHEW TABLET PO PRN (05:00)
[2016-11-26] MEDS ORDERED: NORCO, ANEXSIA 5/325MG TABLET (HYDROcodone/ACETAMINOPHEN) PO PRN (05:00)
[2016-11-26] MEDS ORDERED: IPRATROPIUM 0.5MG/ALBUTEROL 2.5MG INH SOL UD 3ML (DUONEB)(J7620) NEB PRN (05:00)
[2016-11-26] MEDS ORDERED: ONDANSETRON 4MG/2ML VIAL (J2405) IV PRN (05:00)
[2016-11-26] MEDS ORDERED: ALPRAZolam 0.5 MG TAB PO PRN (05:00)
[2016-11-26] MEDS ORDERED: ISOVUE-370 76% 100ML VIAL (Q9967) As Ordered ONE (05:20)
[2016-11-26] MEDS ORDERED: amLODIPine 5 MG TAB PO ONE (05:45)
[2016-11-26] MEDS ORDERED: CEFEPIME HCL 2 GM in D5W 50 ML IV SCH (06:00)
[2016-11-26] MEDS ORDERED: methylPREDNISolone INJ 40 MG/1 ML VIAL (J2920) IV SCH (06:00)
[2016-11-26] MEDS: LEVOTHYROXINE 75MCG TABLET (0.075MG) PO SCH (06:13)
[2016-11-26 06:52] LABS: BASO % 0.3 % (0.0-1.0); EOS % 0.2 % (0.0-3.0); IMMATURE GRANULOCYTE % 0.6 % (0-0); LYMPH # 0.3 10^3/uL (1.5-4.5); LYMPH % 4.6 % (24.0-44.0); MEAN CORPUSCULAR HEMOGLOBIN 25.9 pg (27.0-33.0); MEAN CORPUSCULAR VOLUME 86.1 fl (80.0-96.0); MONO # 0.1 10^3/uL (0.0-0.8); MONO % 1.1 % (0.0-5.0); NEUTROPHILS # 6.1 10^3/uL (1.8-7.7); NEUTROPHILS % 93.2 % (36.0-66.0); PLATELET COUNT, AUTOMATED 136 10^3/uL (150-450); RED CELL DISTRIBUTION WIDTH 14.8 % (11.5-14.5); RETIC HEMOGLOBIN EQUIVALENT 29.1 pg (24-36); RETICULOCYTE % 2.1 % (0.5-1.5); WHITE BLOOD COUNT 6.6 10^3/uL (4.0-10.0)
--- NOTE | 2016-11-26 07:00 | REPUSA ---
CLINICAL HISTORY: Dyspnea, exclude PE. TECHNIQUE: Multiple incremental axial, coronal and oblique images are obtained from the thoracic inle t to the upper abdomen. Intravenous contrast material was administered as per pulmonary embolism prot ocol. COMMENTS: Right upper lobe segmental branches pulmonary embolus. There is excellent opacification of remaining pulmonary arterial system without evidence for another pulmonary embolism. Aorta is of normal caliber without evidence for dissection or aneurysm. 7.5x5.3 cm consolidation of the right upper lobe. Associated loss of volume. This can be secondary to a central endobronchial lesion with a central bronchial obstruction. Minimal right pleural effusion. Small left pleural effusion. Passive atelectatic airspace disease in the lower lobes. There is bilateral peribronchial interstitial thickening suggestive of bronchitis. Mild central emphysema. Mildly enlarged ashley and mediastinum the largest measuring 1.8 images. The bony structures are free of lytic or blastic lesions. Multilevel degenerative changes are seen in volving the visualized thoracolumbar spine. Scattered calcifications are seen involving the aorta and major branches compatible with atherosclero sis. IMPRESSION: Right upper lobe segmental branches pulmonary embolus. Unremarkable main pulmonary artery and its bifurcation. Minimal right pleural effusion. Small left pleural effusion. Right upper lobe consolidation, possibly secondary to central bronchial obstructing lesion. Mild mediastinal and hilar lymphadenopathy. Thank you for your kind referral of this patient.
[2016-11-26 07:22] LABS: ANION GAP 7 MEQ/L (8-16); BLOOD UREA NITROGEN 14 MG/DL (7-18); CARBON DIOXIDE LEVEL 29 MEQ/L (21-32); CHLORIDE LEVEL 101 MEQ/L (98-107); CREATININE FOR GFR 0.77 MG/DL (0.55-1.02); GLOMERULAR FILTRATION RATE > 60.0 (>39); POTASSIUM SERUM 3.9 MEQ/L (3.5-5.1); SODIUM LEVEL 137 MEQ/L (136-145)
[2016-11-26 07:25] LABS: GLUCOSE, FASTING 425 MG/DL (83-110)
[2016-11-26 07:35] VITALS: BP 204/92
[2016-11-26] MEDS: TIOTROPIUM INHALER/CAPSULE (SPIRIVA) INH SCH (08:14)
[2016-11-26] MEDS: ADVAIR HFA 230/21MCG INHALER INH SCH ×2 (08:14→19:54)
[2016-11-26] MEDS: ALPRAZolam 0.25 MG TAB PO PRN ×2 (08:37→18:34)
[2016-11-26] MEDS: oxyCODONE 15 MG CR TAB PO SCH ×2 (08:38→21:56)
[2016-11-26] MEDS: ATORVASTATIN 20 MG TAB PO SCH (08:38)
[2016-11-26] MEDS: HumaLOG INSULIN (NovoLOG) PER UNIT SC SCH ×4 (08:39→21:00)
[2016-11-26] MEDS: ASPIRIN 81 MG CHEW TABLET PO SCH (08:39)
[2016-11-26] MEDS: GABAPENTIN 300 MG CAP PO SCH ×3 (08:39→21:54)
[2016-11-26] MEDS: SENOKOT S TAB PO SCH ×3 (08:39→21:55)
[2016-11-26] MEDS: CEFEPIME HCL 2 GM in D5W 50 ML IV SCH ×2 (08:40→17:14)
[2016-11-26] MEDS: LEVEMIR (INSULIN DETEMIR) 1 UNITS/0.01ML SC SCH (08:40)
[2016-11-26] MEDS ORDERED: LISINOPRIL *2.5 MG* TAB PO SCH (09:00)
[2016-11-26] MEDS ORDERED: predniSONE 5 MG TAB PO SCH (09:00)
[2016-11-26] MEDS ORDERED: ENOXAPARIN 40 MG/0.4 ML SYRINGE (J1650) SC SCH (09:00)
[2016-11-26] MEDS ORDERED: hydrALAZINE INJ 20 MG/ML VIAL IV ONE (09:00)
[2016-11-26] MEDS ORDERED: CLOPIDOGREL 75 MG TAB PO SCH (09:00)
[2016-11-26] MEDS ORDERED: ENOXAPARIN 60 MG/0.6 ML SYR (J1650) SC SCH (09:00)
--- NOTE | 2016-11-26 09:11 | ECGEPIP ---
Stationary ECG Study [facility] - ED Test Date: 2016-11-26 Pat Name: ELA LIVINGSTON Department: Room: [place] [address] Gender: F [employer]: jayro : 1945 Requested By: OTTO Valdes Order Number: [id number] Reading MD: Tika Ortega Measurements Intervals Pinson Rate: 92 P: 61 MD: 120 QRS: 15 QRSD: 105 T: 95 QT: 356 QTc: 441 Interpretive Statements SINUS RHYTHM ST DEVIATION AND MODERATE T-WAVE ABNORMALITY, CONSIDER ISCHEMIA BASELINE ARTIFACT LIMITS INTERPRETATION Electronically Signed On 11-26-2016 9:11:22 EDT by Tika Ortega
--- NOTE | 2016-11-26 11:13 | HPE ---
DATE OF ADMISSION: 11/26/2016 TIME PATIENT WAS SEEN: Around 4 a.m. PCP: Alison Urbina MINES INSPECTOR: Dr. Erickson. VASCULAR SURGEON: Dr. Juarez. CHIEF COMPLAINT: Shortness of breath and cough. HISTORY OF PRESENT ILLNESS: 71-year-old female with past medical history of chronic hypoxic respiratory failure, chronic obstructive pulmonary disease (COPD ) on 3 liters of nasal cannula oxygen 24 hours a day, chronic pneumonia of the right upper lung, hypertension, depression, dyslipidemia, tobacco use, neuropathy and low grade urothelial carcinoma of bladder, follows with Dr. Astudillo, presented with worsening shortness of breath and green sputum. Per patient, she had biopsy done in September with Dr. Erickson. Pathology result shows benign lung tissue consistent with pneumonia and inflammatory infectious process. Per patient, her breathing has been worsened for the past few days and she could hardly breathe now. She also complained of greenish sputum. Otherwise denies any chest pain. Denies any abdominal pain, nausea, vomiting, diarrhea, constipation. However, patient was not cooperating in the room and would like the interview to be as short as possible. ALLERGIES: LATEX causes her rash. RED DYE causes rash. SULFA antibiotic produces rash. Bacitracin with no allergy. Cortisone with no allergy. Fluoxetine no allergy. Neomycin no allergy. Polymycin, tramadol also has no allergy. Tylenol produces upset stomach. OXYCODONE from Percocet produces itchiness. PAST MEDICAL HISTORY: 1. Chronic hypoxic respiratory failure with chronic obstructive pulmonary disease (COPD). On 3 liters of oxygen 24 hours a day. 2. Hypertension. 3. Depression. 4. Dyslipidemia. 5. Tobacco abuse. 6. Neuropathy. 7. Low grade urothelial carcinoma of bladder. 8. Right upper lobe pneumonia with biopsy which was benign back in September. 9. Severe peripheral arterial disease status post angioplasty and stenting with PAST SURGICAL HISTORY: 1. Right lower extremity angiogram with angioplasty and stenting and also bilateral common iliac artery. 2. Bronchoscopy with biopsy and bronchial alveolar lavage. 3. Hysterectomy. 4. Transurethral bladder tumor resection. SOCIAL HISTORY: Patient lives alone. Has 180 pack year tobacco history with ongoing use. Per patient she quit 1 day ago. At baseline, patient is independent of activities of daily living. Still drinks alcohol occasionally. Denies any elicit drug use. FAMILY HISTORY: Noncontributory. REVIEW OF SYSTEMS: Patient refused to answer and was not cooperative. HOME MEDICATIONS: Including: - acetaminophen/hydrocodone one tablet by mouth every 4 hours as needed - ProAir two puff inhalation four times daily as needed - albuterol 2.5 mg inhalation every 4 hours as needed - alprazolam 0.5 mg by mouth every 6 hours as needed - Anoro Ellipta 62.5 25 mcg inhalation daily - aspirin 81 mg one tablet daily - atorvastatin 40 mg by mouth daily - clopidogrel 75 mg by mouth daily - gabapentin 600 mg by mouth three times daily - Lantus 30 units subcutaneously daily - levothyroxine 75 mcg by mouth daily - lisinopril 2.5 mg by mouth daily - oxycodone 15 mg by mouth twice daily - prednisone 5 mg by mouth daily - Spiriva inhalation daily - vitamin D 50,000 units by mouth Friday PHYSICAL EXAMINATION: Vital signs: Temperature 98, pulse 24, blood pressure 197/82, oxygen was sating at 96% on 3 liters of nasal cannula. General: Patient is a thin looking elderly female who was alert, awake, oriented times three, appears to be in mild distress. Lying comfortably in bed with head elevated at 30 degrees. HEENT: Normocephalic, atraumatic. Extraocular motor intact. Mucous moist. Neck supple, no lymphadenopathy. Cardiovascular: Distant heart sounds due to increased AP diameter. Otherwise regular rate and rhythm. Normal S1, S2. Lungs: Reduced breath sounds at right upper quadrant. Otherwise no wheezing or rales or rhonchi. Abdomen: Positive bowel sounds, soft, nontender, nondistended. No peritoneal signs. No ecchymosis. Extremities: Trace pitting edema in bilateral lower extremity. Legs were warm to touch. Pulses for posterior tibia and dorsal pedis were dopplerable bilaterally. Patient does have gangrene necrosis of right second toe and right fifth toe. Skin: Warm and dry. Neuro: Cranial nerves II-XII intact. No focal neurologic deficit noted. LABS: WBC 6, hemoglobin 9.9, hematocrit 34, platelet count of 179. MCV 87.2. Neutrophil percentage 76.7. Sodium 138, potassium 3.9, chloride 102, bicarbonate 33, anion gap 3, BUN 16, creatinine 0.9 . Glomerular filtration rate greater than 60. Fasting glucose 463. Calcium 8.9. CK 66, CK-MB 3.8, troponin 0.04, CRP less than 0.3. BNP was 5770 however, no baseline recorded on file. PT 13.1, INR 0.98, PTT 33. Respiratory panel is currently pending. Sputum culture is pending. Blood culture times two are pending. Patient does have a chest x-ray PA and lateral shows diffuse chronic changes with opacity in the right upper lobe blunting the costophrenic angle. Superimposed acute process cannot be excluded. Comparing to 10/09/2016, however, overall lung field has improved. ASSESSMENT AND PLAN: 71-year-old female with past medical history of chronic hypoxic respiratory failure on 3 liters of nasal cannula oxygen. Right upper lobe lung mass has been worked up, shows benign and possibly pneumonia, was on antibiotic at home, possibly diastolic heart failure with possible right sided heart failure. Echocardiogram done in July 2016 and Doppler evidence of severe pulmonary hypertension, chronic anemia, severe peripheral arterial disease status post multiple stents and angioplasty recently, presented with: 1. Increased shortness of breath with green sputum with history of chronic hypoxic hypercapnic respiratory failure, follows with Dr. Erickson. Patient was on 3 liters of oxygen at home. She was sating 96% on 3 liters of nasal cannula, however, patient complained that she could not breathe. Portable chest x-ray has been ordered, shows improvement compared to September. However, this could not explain the increased shortness of breath. CT angio has been ordered to evaluate patient's right upper lobe pneumonia, possible mass even though it has been worked up in the past. Will also rule out pulmonary embolus (PE). EKG has been ordered as well, shows similar to 10/09/2016 with ventricular rate of 92, however, repolarization abnormalities persist. At this point, will continue DuoNeb treatment, continue home steroid, start patient on cefepime for possible hospital acquired pneumonia. Patient did receive vancomycin and Zosyn in the emergency room and continue to monitor patient's respiratory status. 2. Right upper lobe infiltrate on the chest x-ray, possible pneumonia versus mass. CT angio has been ordered to re-evaluate. Patient did have a negative biopsy back in September. Will consider consulting Dr. Erickson in the morning. Continue antibiotic for now. 3. Possible heart failure with bilateral trace edema as well as increased shortness of breath and elevated BNP of more than 5000. However, at this point, we do not have a baseline. On physical examination, she does not have jugular venous distention (JVD), however, echocardiogram done back in July 2016 did show severe pulmonary hypertension and dilated right heart chambers and right ventricular hypokinesis, possible right sided heart failure. However, left ventricular ejection fraction was 65%. Continue to monitor for now and possibly considering Lasix to help with lower extremity swelling. 4. Hypertensive urgency with blood pressure of 197/82. Will start patient on Norvasc 5 mg to start with and will consider hydralazine if needed. 5. Chronic anemia. It has been worked up in the past. Will order retic count for tomorrow morning. 6. Hyperglycemia with fasting glucose of 463 possibly due to steroid versus infection. Patient does have a history of insulin dependent type 2 diabetes. Will continue Lantus and continue patient on insulin sliding scale. 7. Severe peripheral artery disease, follows Dr. Juarez. Patient does have a gangrenous toe of the right second and right fifth toes. However, pulses were dopplerable. At this point, will consider consulting Dr. Juarez first thing in the morning. 8. Deep venous thrombosis (DVT) prophylaxis with Lovenox 40 mg daily. 9. Fluid electrolyte and diet. At this point, will hold any fluid. Potassium is close to 4. Will continue carbohydrate consistent diet with 2 grams of sodium and 2 liter of fluid restriction. DISPOSITION: Patient has increased shortness of breath possibly from pneumonia versus congestive heart failure (CHF) exacerbation versus chronic obstructive pulmonary disease (COPD) exacerbation. Will continue antibiotics. Continue to monitor patient's blood pressure. Possibly add Lasix and will consider consulting Dr. Erickson and Dr. Juarez first thing in the morning. Patient has been discussed with attending doctor, Dr. Tijerina. My preceptor for this patient encounter was Dr. Susanne Tijerina. The preceptor was physically present in the building during the encounter and was fully available. As needed, all aspects of the patient interview, examination, medical decision making process, and medical care plan development were reviewed and approved by the preceptor. The preceptor is aware and concurs with the plan as stated in the body of this note and will attest to such by his/her cosignature. I have both independently examined this patient as well as reviewed the H&P. I have discussed in detail with the resident the findings and plan of treatment as documented in the residents note. I will continue to follow the patient and offer further guidance to the patients care as necessary during this hospital stay. Susanne DORSEY
[2016-11-26 12:00] VITALS: BP 160/62
--- NOTE | 2016-11-26 14:06 | CR ---
DATE OF CONSULTATION: 11/26/2016 Addendum to the consultation note dictated by my resident on 11/26/2016. I was asked to see Ms. Lula Ponce for an abnormal chest CT. HISTORY: The patient was having increased shortness of breath, increased wheezing and increased lower extremity edema. She came to the emergency room with increasing shortness of breath and was found to have anemia. Chest CT showed persistent consolidation of the right upper lobe that has improved on comparison to September. In the same area there was a small segmental PE called by the radiologist, I believe this is questionable. There is a small pleural effusion on the left, which is essentially unchanged, possibly slightly larger. The patient states she feels better since she came in. The treatments she has received include IV steroids and cefepime. Of note, she has been significantly hypertensive with systolic blood pressures into the 180s and 200s. She was actually moved to the progressive care unit due to the severity of her hypertension. Her BNP is elevated and she was complaining of increased lower extremity edema. Therefore, I believe, there may be a component of diastolic dysfunction. 1. Dyspnea most likely from chronic obstructive pulmonary disease (COPD) exacerbation. She feels immediately better with the use of IV steroids and antibiotics. Would continue a 7-day course of antibiotics. Due to her history of infiltrate, agree with obtaining sputum culture. She has no white count; however, she may be chronically infected and she is malnourished. Would await for culture sensitivities and de-escalate therapy as necessary. I believe she may also have extra volume on board, especially given her history of a pleural effusion and dependent edema. She is quite hypertensive with normal renal function, therefore I believe she will easily be able to tolerate diuresis. Her anemia may be partially dilutional. I believe anemia could be also contributing to her shortness of breath. I would begin workup for her anemia. 2. Abnormal chest CT with infiltrate and emphysema. The infiltrate has air bronchograms. She had a bronchoscopy for this abnormality with pathology results showing pneumonia. There is no obstructing lesion on CT or on bronchoscopy and the infiltrate is improving. I do not believe there is any evidence of malignancy at this point in time. I do have concern that with her chronic narcotic use that she has frequent aspiration. 3. Anemia. Recommend further workup, possibly partially dilutional. 4. Pleural effusion. At this point in time, small in nature. Would recommend attempts towards diuresis. 5. Emphysema. Continue Advair, Spiriva, and steroids. I believe COPD exacerbation is what lead her to the hospital. She has chronic hypercarbic respiratory failure. Arterial blood gas is fairly well compensated at this point in time. 6. Questionable history of PE. Would review her CT scan with radiologist, as the area is quite questionable and difficult to call. I believe the blood vessel actually that is in question is actually overlapped by the infiltrate in the right upper lobe. There is no large central pulmonary embolism. We will obtain lower extremity Dopplers to rule out peripheral deep vein thrombosis. 7. Hypertension. Would recommend better control due to the fact that she likely has diastolic dysfunction which may be contributing to her shortness of breath. 8. Overall, the patient has a number of reasons to be short of breath, including underlying emphysema with chronic hypercarbic respiratory failure, residual infiltrate, possible pulmonary embolism, anemia and possible fluid overload. Recommend slowly addressing each of these to ensure improvement of the patient's symptoms. Of note, the patient is very concerned with the amount of narcotics she is receiving. She feels like she needs more and more. She is in quite of bit of emotional distress on our visit today. She states she wants to be functional at home but just feels because of her shortness of breath she is unable to do so. Multiple time she has presented to my office significantly narcotized, unable to keep her eyes open. I do have a question of narcotic overuse. SUNITA
--- NOTE | 2016-11-26 15:46 | REP ---
BILATERAL DUPLEX LOWER EXTREMITY VEINS: HISTORY: Lower extremity edema. RIGHT LOWER EXTREMITY: There are no filling defects in the deep venous system. The deep venous system is patent. IMPRESSION: There is no deep venous thrombosis. LEFT LOWER EXTREMITY: There are no filling defects in the deep venous system. The deep venous system is patent. IMPRESSION: There is no deep venous thrombosis. Signed by Giacomo Worrell MD 11/26/2016 04:02 P
[2016-11-26 16:00] VITALS: BP 148/87
[2016-11-26] MEDS: methylPREDNISolone INJ 125 MG/2 ML VIAL (J2930) IV SCH (17:15)
[2016-11-26 20:00] VITALS: BP 184/88
--- NOTE | 2016-11-26 20:48 | CR.PDOC ---
[facility] Consultation Consultation DATE OF CONSULTATION: Nov 26, 2016 at 01:59 DATE OF CONSULTATION: Nov 26, 2016 at 01:59 REASON FOR CONSULTATION/CHIEF COMPLAINT: Abnormal CT HISTORY OF PRESENT ILLNESS: Patient is a 71-year-old female with a past medical history of chronic hypoxic respiratory failure, COPD, patient is on 3 L of nasal cannula at home, hypertension, depression, tobacco use, dyslipidemia, neuropathy and right upper lung chronic pneumonia. Patient presented to the ED on the night of 11/26/2016 with complaints of worsening shortness of breath and green sputum production. An x-ray performed in the ED reveled diffuse chronic interstitial changes with scattered fibrosis/scarring, alone with vague opacity in the right upper lobe that was similar to prior examination. A CT angiography also performed in the ED revealed right upper lobe segmental branch pulmonary embolism. Pulmonary was consulted because of this abnormal CT finding. On Initial examination patient was tearful, and very anxious about her condition. Stated that she has been having difficulty breathing for the last few days, with cough. She was worried that she might be dying soon and was not ready to go. She admits to smoking history. She denied hemoptysis, she also denied blood in her stool, she denied vomiting, she denied abdominal pain. She denied chest pain ALLERGIES: Please see below. HOME MEDICATIONS: Please see below. PAST MEDICAL HISTORY: 1. Chronic hypoxic respiratory failure with chronic obstructive pulmonary disease (COPD). On 3 liters of oxygen 24 hours a day. 2. Hypertension. 3. Depression. 4. Dyslipidemia. 5. Tobacco abuse. 6. Neuropathy. 7. Low grade urothelial carcinoma of bladder. 8. Right upper lobe pneumonia with biopsy which was benign back in September. 9. Severe peripheral arterial disease status post angioplasty and stenting PAST SURGICAL HISTORY: 1. Right lower extremity angiogram with angioplasty and stenting and also bilateral common iliac artery. 2. Bronchoscopy with biopsy and bronchial alveolar lavage. 3. Hysterectomy. 4. Transurethral bladder tumor resection. SOCIAL HISTORY: Patient lives alone. She states that she quit smoking the day she was admitted but prior to that she was smoking 1 pd for the last 30 years. Denies any illicit drug use, admits to occasional alcohol REVIEW OF SYSTEMS: CONSTITUTIONAL: Denies fevers, chills. no weight loss. No night sweats. HEENT: Admits to cough. No epistaxis, No change in vision, no sore throat. no nasal lesion. CARDIOVASCULAR: denies chest pain, denies palpitation, denies rapid heart rate. no edema or orthopnea. RESPIRATORY: as per hpi. no history of pleurisy GENITOURINARY: Denies any blood in urine, denies any problems in urination. No nocturia. MUSCULOSKELETAL: Admits to generalized muscle pain. no joint effusions, GASTROINTESTINAL:, No pain denies constipation denies vomiting denies diarrhea. No hematemesis or blood in stool. SKIN: no rashes or pruritis NEUROLOGICAL: Denies numbness, tingling. no unilateral weakness, no history of stroke or seizure. PSYCHIATRIC: admits anxiety. no depression or suicidal ideation. Allergy/immunology: Complains of frequent respiratory infections, no environmental allergies. Sleep: no excessive daytime somnolence, no morning headaches. Endocrine: no polyuria/polydipsia. no hot or cold intolerance. PHYSICAL EXAMINATION: VITAL SIGNS: Please see below. GENERAL APPEARANCE: Tearful, cachectic appearing female HEENT: Head is atraumatic, moist oral mucosa, supple, no thyromegaly noted, she has poor fitting dentures in place. RESPIRATORY: Decrease breath sounds on right upper lobe. No excessive use of of muscles to breath, no wheezing or rhonchi noted. Normal inspiratory and exploratory phase. Symmetric movements of chest wall with breathing. CARDIOVASCULAR: S1 and S2 regular Rate and rhythm , no murmurs, no gallops were noted. minimal lower extremity edema. ABDOMEN: Soft, nondistended, no splenomegaly or palpable masses Vanessa: Lipoma noted on her right mid thoracic, in close proximity to scapula EXTREMITIES: Mild bilateral lower stream edema noted. Patient has gangrene on right foot on both the second toe and the fifth toe PSYCHIATRIC: Patient is visibly anxious LABORATORY DATA: Please see below. ASSESSMENT A 71-year-old female with a past medical history of chronic hypoxic respiratory failure, COPD, patient is on 3 L of nasal cannula at home, hypertension, depression, tobacco use, dyslipidemia, neuropathy and right upper lung chronic pneumonia.A CT angiography also performed in the ED revealed right upper lobe segmental branch pulmonary embolism. Pulmonary was consulted as a result. PLAN 1) Pulmonary embolism: After reviewing the CT images with the radiologist, the possibility of a pulmonary embolism being the cause of her shortness of breath seemed unlikely given the location, there is some question if the embolism is truly present. A follow-up vascular ultrasound revealed no filling defect in the deep venous system. Meaning the deep venous system is patent and thus no pulmonary embolism was evident 2. Anemia: Patient's anemia could be contributing to her difficulty breathing. The anemia could be due to chronic condition or it could be from patient's Plavix. Patient did deny any blood per rectum or hemoptysis, however she could be still be experiencing loss blood that could be contributing to her shortness of breath. An anemia work up in necessary to address the cause of her anemia. 3. COPD Exacerbation: Patient could be experiencing a COPD exacerbation, as evident by her bilateral lower extremity swelling. Recommend steroids, oxygen and diuresis of her excess fluids. 4. Emphysema: Patient has an extensive smoking history, and xray reviewed scattered fibrosis/scarring. This could be preventing her from fully expanding her lungs and thus inciting he shortness of breath. I recommend supplemental O2. 5. Pneumonia: X-ray showed a vague opacity in the right upper lobe that was similar to prior examination. This could be a chronic infection. I would recommend antibiotics along with sputum culture for sensitivity. IRasta have performed an independent history and physical. Please refer to my note that is in addendum to this consult not that was reviewed by the resident. Vital Signs/I&O Vital Signs Date Time Temp Pulse Resp B/P (MAP) Pulse Ox O2 Delivery O2 Flow Rate FiO2 11/26/16 19:52 Nasal Cannula 3.0 11/26/16 16:00 97.8 88 20 148/87 (107) 94 I&O- Last 24 Hours up to 6 AM 11/27/16 05:59 Intake Total 1320 ml Balance 1320 ml Laboratory Data Labs 24H Laboratory Tests 2 11/26/16 02:26: Immature Granulocyte % (Auto) 0.5H, White Blood Count 6.0, Red Blood Count 3.90L , Hemoglobin 9.9L, Hematocrit 34.0L, Mean Corpuscular Volume 87.2, Mean Corpuscular Hemoglobin 25.4L, Mean Corpuscular Hemoglobin Concent 29.1L, Red Cell Distribution Width 14.8H, Platelet Count 179, Neutrophils (%) (Auto) 76.7H , Lymphocytes (%) (Auto) 12.5L, Monocytes (%) (Auto) 7.1H, Eosinophils (%) (Auto ) 2.5, Basophils (%) (Auto) 0.7, Neutrophils # (Auto) 4.6, Lymphocytes # (Auto) 0.8L, Monocytes # (Auto) 0.4, Eosinophils # (Auto) 0.2, Basophils # (Auto) 0.0, Immature Granulocyte # (Auto) 0.0, Nucleated Red Blood Cells % (auto) 0.0, Prothrombin Time 13.1, Prothromb Time International Ratio 0.98, Activated Partial Thromboplast Time 33.0, Anion Gap 3L, Glomerular Filtration Rate > 60.0 , Blood Urea Nitrogen 16, Creatinine 0.90, Sodium Level 138, Potassium Level 3.9 , Chloride Level 102, Carbon Dioxide Level 33H, Calcium Level 8.9, Total Creatine Kinase 66, Creatine Kinase MB 3.8H, Creatine Kinase MB Relative Index 5.75H, Troponin I 0.04, C-Reactive Protein, Quantitative < 0.30, YF-Mcr-Q-Type Natriuretic Peptide 5770H 11/26/16 02:47: Blood Gas Bicarbonate Standard 26.1H, Arterial Blood pH 7.379, Arterial Blood Partial Pressure CO2 47.6H, Arterial Blood Partial Pressure O2 92.4, Arterial Blood Total CO2 28.9, Arterial Blood HCO3 27.5H, Arterial Blood Base Excess 1.9 , Arterial Blood Oxygen Saturation 96.6 11/26/16 06:43: Immature Granulocyte % (Auto) 0.6H, White Blood Count 6.6, Red Blood Count 3.52L , Hemoglobin 9.1L, Hematocrit 30.3L, Mean Corpuscular Volume 86.1, Mean Corpuscular Hemoglobin 25.9L, Mean Corpuscular Hemoglobin Concent 30.0L, Red Cell Distribution Width 14.8H, Platelet Count 136L, Neutrophils (%) (Auto) 93.2H , Lymphocytes (%) (Auto) 4.6L, Monocytes (%) (Auto) 1.1, Eosinophils (%) (Auto) 0.2, Basophils (%) (Auto) 0.3, Neutrophils # (Auto) 6.1, Lymphocytes # (Auto) 0.3L, Monocytes # (Auto) 0.1, Eosinophils # (Auto) 0.0, Basophils # (Auto) 0.0, Immature Granulocyte # (Auto) 0.0, Nucleated Red Blood Cells % (auto) 0.0, Anion Gap 7L, Glomerular Filtration Rate > 60.0, Blood Urea Nitrogen 14, Creatinine 0.77, Sodium Level 137, Potassium Level 3.9, Chloride Level 101, Carbon Dioxide Level 29, Calcium Level 9.0, Total Creatine Kinase 46, Creatine Kinase MB 3.4, Creatine Kinase MB Relative Index 7.39H, Troponin I 0.03#, Reticulocyte # (auto) 75.0, Percent Reticulocyte Count 2.1H, Reticulocyte Hemoglobin Equivalent 29.1 11/26/16 11:28: Bedside Glucose (Misc Panel) 390H 11/26/16 13:56: Total Creatine Kinase 54, Creatine Kinase MB 4.2H, Creatine Kinase MB Relative Index 7.77H, Troponin I 0.03, EZ-Kai-O-Type Natriuretic Peptide 8716H 11/26/16 16:49: Bedside Glucose (Misc Panel) 254H CBC/BMP Laboratory Tests 11/26/16 02:26 Red Blood Count 3.90 L, Mean Corpuscular Volume 87.2, Mean Corpuscular Hemoglobin 25.4 L, Mean Corpuscular Hemoglobin Concent 29.1 L, Red Cell Distribution Width 14.8 H, Neutrophils (%) (Auto) 76.7 H, Lymphocytes (%) (Auto ) 12.5 L, Monocytes (%) (Auto) 7.1 H, Eosinophils (%) (Auto) 2.5, Basophils (%) (Auto) 0.7, Neutrophils # (Auto) 4.6, Lymphocytes # (Auto) 0.8 L, Monocytes # ( Auto) 0.4, Eosinophils # (Auto) 0.2, Basophils # (Auto) 0.0, Calcium Level 8.9, Total Creatine Kinase 66 11/26/16 06:43 Red Blood Count 3.52 L, Mean Corpuscular Volume 86.1, Mean Corpuscular Hemoglobin 25.9 L, Mean Corpuscular Hemoglobin Concent 30.0 L, Red Cell Distribution Width 14.8 H, Neutrophils (%) (Auto) 93.2 H, Lymphocytes (%) (Auto ) 4.6 L, Monocytes (%) (Auto) 1.1, Eosinophils (%) (Auto) 0.2, Basophils (%) ( Auto) 0.3, Neutrophils # (Auto) 6.1, Lymphocytes # (Auto) 0.3 L, Monocytes # ( Auto) 0.1, Eosinophils # (Auto) 0.0, Basophils # (Auto) 0.0, Calcium Level 9.0, Total Creatine Kinase 46 Microbiology Microbiology 11/26/16 Blood Culture, Received Pending 11/26/16 Blood Culture, Received Pending 11/26/16 Respiratory Virus Panel (PCR) (SANDRA) - Final, Complete 11/26/16 Gram Stain - Final, Resulted 11/26/16 Sputum Culture, Resulted Pending Allergies Coded Allergies: Latex (Unverified Allergy, Intermediate, RASH, 07/24/16) Red Dye (Unverified Allergy, Intermediate, rash, 12/19/15) Sulfa Antibiotics (Verified Allergy, Intermediate, RASH, 12/19/15) Bacitracin (Unverified Allergy, Unknown, 10/05/15) Cortisone (Unverified Allergy, Unknown, 10/05/15) Fluoxetine (Unverified Allergy, Unknown, 10/05/15) Neomycin (Unverified Allergy, Unknown, 10/05/15) Polymyxin B (Unverified Allergy, Unknown, 10/05/15) Tramadol (Unverified Allergy, Unknown, 10/05/15) Acetaminophen (Unverified Adverse Reaction, Mild, UPSETS STOMACH, 07/24/16) Oxycodone (Verified Adverse Reaction, Mild, itchy, 07/24/16) Home Medications Scheduled (Anoro Ellipta 62.5-25 Mcg/INH) 1 Aer Aer, 1 AER INH DAILY, (Reported) (Aspirin) 81 Mg Chw, 81 MG PO DAILY, (Reported) Amlodipine Besylate (Amlodipine Besylate) 5 Mg Tab, 5 MG PO DAILY, #10 Ascorbic Acid (Vitamin C) 500 Mg Tab, 500 MG PO BID, #20 Atorvastatin Calcium (Atorvastatin Calcium) 20 Mg Tab, 40 MG PO DAILY, (Reported ) Clopidogrel Bisulfate (Clopidogrel) 75 Mg Tab, 75 MG PO DAILY, (Reported) Ferrous Sulfate (Ferrous Sulfate) 325 Mg Tab, 325 MG PO BID, #20 Furosemide (Furosemide) 20 Mg Tab, 20 MG PO DAILY, #10 Gabapentin (Gabapentin) 600 Mg Tab, 600 MG PO TID, (Reported) Hydralazine HCl (Hydralazine HCl) 10 Mg Tab, 10 MG PO Q6H, #30 Insulin Glargine (Lantus) 1 Units/0.01 Ml Susp, 30 UNITS SC DAILY, (Reported) Levofloxacin Hemihydrate (Levaquin) 750 Mg Tab, 750 MG PO Q48H, #5 Levothyroxine Sodium (Levoxyl) 75 Mcg Tab, 75 MCG PO DAILY, (Reported) Lisinopril (Lisinopril) 5 Mg Tab, 5 MG PO DAILY, #10 Oxycodone HCl (Oxycontin) 15 Mg Tab, 15 MG PO BID, (Reported) Prednisone (Prednisone) 10 Mg Tab, 10 MG PO TAPER, #30 Take 4 tabs daily x 3 days, then 3 tabs daily x 3 days, then 2 tabs daily x 3 days, then 1 tab daily x 3 days and stop Tiotropium [place] Monohydrate (Spiriva Handihaler) 18 Mcg Cap, 1 INHALATION INH DAILY, (Reported) Vitamin D (Drisdol) 50,000 Unit Cap, 50,000 UNIT PO ASDIRECTED, (Reported) TAKES ON FRIDAY MORNINGS Scheduled PRN Acetaminophen/Hydrocodone ([place] 5-325 mg) 1 Tab Tab, 1 TAB PO Q4H PRN for PAIN, (Reported) Albuterol Sulfate (Proair Hfa) 108 Mcg/Act Aer, 2 PUFF INH QID PRN for SHORTNESS OF BREATH, (Reported) Albuterol Sulfate (Albuterol Sulfate) 2.5 Mg/3 Ml Nebu, 2.5 MG INH Q4H PRN for SHORTNESS OF BREATH, (Reported) Alprazolam (Alprazolam) 0.5 Mg Tab, 0.5 MG PO Q6H PRN for ANXIETY, (Reported) GME ATTESTATION GME ATTESTATION My preceptor for this patient encounter was physically present in the building during the encounter and was fully available. As needed, all aspects of the patient interview, examination, medical decision making process, and medical care plan development were reviewed and approved by the preceptor. Preceptor is aware and concurs with the plan as stated in the body of this note and will attest to such by his/her cosignature. WILL MORATAYA DO Nov 26, 2016 20:20 RASTA RAO Dec 02, 2016 16:43
--- NOTE | 2016-11-26 20:50 | IPNPDOC ---
Text Note Date of Service The patient was seen on 11/26/16. NOTE Evening resident and attending were paged on patient's SBP were still in 180s. Therefore hydralazine 10 mg PO q 6 has been added to hold if SBP <= 150. Titrated up her lisinopril from 2.5 mg to 5 mg. Patient has been discussed with Dr. Cuevas. GME ATTESTATION My preceptor for this patient encounter was physically present in the building during the encounter and was fully available. As needed, all aspects of the patient interview, examination, medical decision making process, and medical care plan development were reviewed and approved by the preceptor. Preceptor is aware and concurs with the plan as stated in the body of this note and will attest to such by his/her cosignature. VS,Fishbone, I+O VS, Fishbone, I+O Laboratory Tests 11/26/16 02:26 Red Blood Count 3.90 L, Mean Corpuscular Volume 87.2, Mean Corpuscular Hemoglobin 25.4 L, Mean Corpuscular Hemoglobin Concent 29.1 L, Red Cell Distribution Width 14.8 H, Neutrophils (%) (Auto) 76.7 H, Lymphocytes (%) (Auto ) 12.5 L, Monocytes (%) (Auto) 7.1 H, Eosinophils (%) (Auto) 2.5, Basophils (%) (Auto) 0.7, Neutrophils # (Auto) 4.6, Lymphocytes # (Auto) 0.8 L, Monocytes # ( Auto) 0.4, Eosinophils # (Auto) 0.2, Basophils # (Auto) 0.0, Calcium Level 8.9, Total Creatine Kinase 66 11/26/16 06:43 Red Blood Count 3.52 L, Mean Corpuscular Volume 86.1, Mean Corpuscular Hemoglobin 25.9 L, Mean Corpuscular Hemoglobin Concent 30.0 L, Red Cell Distribution Width 14.8 H, Neutrophils (%) (Auto) 93.2 H, Lymphocytes (%) (Auto ) 4.6 L, Monocytes (%) (Auto) 1.1, Eosinophils (%) (Auto) 0.2, Basophils (%) ( Auto) 0.3, Neutrophils # (Auto) 6.1, Lymphocytes # (Auto) 0.3 L, Monocytes # ( Auto) 0.1, Eosinophils # (Auto) 0.0, Basophils # (Auto) 0.0, Calcium Level 9.0, Total Creatine Kinase 46 Vital Signs Date Time Temp Pulse Resp B/P (MAP) Pulse Ox O2 Delivery O2 Flow Rate FiO2 11/26/16 20:00 Nasal Cannula 3.0 11/26/16 16:00 97.8 88 20 148/87 (107) 94 I&O- Last 24 Hours up to 6 AM 11/27/16 06:00 Intake Total 1320 ml Balance 1320 ml ANNE WILSON DO Nov 26, 2016 20:50
[2016-11-26] MEDS ORDERED: CHLORTHALIDONE 12.5MG PER 1/2 TABLET PO ONE (21:00)
[2016-11-26] MEDS ORDERED: **hydrALAZINE** 10 MG TAB PO ONE (21:30)
[2016-11-27] VITALS: BP 178/88
[2016-11-27] MEDS: **hydrALAZINE** 10 MG TAB PO SCH ×5 (00:30→23:53)
[2016-11-27] MEDS: IPRATROPIUM 0.5MG/ALBUTEROL 2.5MG INH SOL UD 3ML (DUONEB)(J7620) NEB SCH ×4 (02:17→20:00)
[2016-11-27 04:00] VITALS: BP 164/82
[2016-11-27] MEDS: methylPREDNISolone INJ 125 MG/2 ML VIAL (J2930) IV SCH ×2 (05:28→17:45)
[2016-11-27] MEDS: LEVOTHYROXINE 75MCG TABLET (0.075MG) PO SCH (05:29)
[2016-11-27] MEDS: CEFEPIME HCL 2 GM in D5W 50 ML IV SCH ×2 (05:29→17:44)
[2016-11-27] MEDS: ALPRAZolam 0.25 MG TAB PO PRN ×3 (05:32→20:56)
[2016-11-27 05:54] LABS: BASO % 0.1 % (0.0-1.0); IMMATURE GRANULOCYTE % 0.4 % (0-0); LYMPH # 0.6 10^3/uL (1.5-4.5); LYMPH % 7.5 % (24.0-44.0); MEAN CORPUSCULAR HEMOGLOBIN 25.7 pg (27.0-33.0); MEAN CORPUSCULAR HGB CONC 30.3 g/dl (32.0-36.5); MONO # 0.4 10^3/uL (0.0-0.8); MONO % 4.8 % (0.0-5.0); NEUTROPHILS # 6.7 10^3/uL (1.8-7.7); NEUTROPHILS % 87.2 % (36.0-66.0); PLATELET COUNT, AUTOMATED 132 10^3/uL (150-450); RED CELL DISTRIBUTION WIDTH 14.7 % (11.5-14.5); WHITE BLOOD COUNT 7.7 10^3/uL (4.0-10.0)
[2016-11-27 06:24] LABS: ANION GAP 5 MEQ/L (8-16); BLOOD UREA NITROGEN 20 MG/DL (7-18); CALCIUM LEVEL 8.9 MG/DL (8.8-10.2); CARBON DIOXIDE LEVEL 29 MEQ/L (21-32); CHLORIDE LEVEL 104 MEQ/L (98-107); CREATININE FOR GFR 0.69 MG/DL (0.55-1.02); FERRITIN 36 NG/ML (8-252); GLOMERULAR FILTRATION RATE > 60.0 (>39); GLUCOSE, FASTING 250 MG/DL (83-110); PERCENT SATURATION 5.9 % (13.2-45.0); POTASSIUM SERUM 4.7 MEQ/L (3.5-5.1); SODIUM LEVEL 138 MEQ/L (136-145); TOTAL IRON BINDING CAPACITY 354 UG/DL (250-450)
[2016-11-27] MEDS: ADVAIR HFA 230/21MCG INHALER INH SCH ×2 (07:44→20:28)
[2016-11-27] MEDS: TIOTROPIUM INHALER/CAPSULE (SPIRIVA) INH SCH (07:44)
[2016-11-27 08:03] LABS: REASON FOR REVIEW ANEMIA / RBC MORPH
[2016-11-27] MEDS: HumaLOG INSULIN (NovoLOG) PER UNIT SC SCH ×4 (08:29→21:02)
[2016-11-27] MEDS: LEVEMIR (INSULIN DETEMIR) 1 UNITS/0.01ML SC SCH (08:29)
[2016-11-27] MEDS: CLOPIDOGREL 75 MG TAB PO SCH (08:30)
[2016-11-27] MEDS: ATORVASTATIN 20 MG TAB PO SCH (08:30)
[2016-11-27] MEDS: GABAPENTIN 300 MG CAP PO SCH ×3 (08:30→20:55)
[2016-11-27] MEDS: FUROSEMIDE 20 MG/2 ML VIAL (J1940) IV SCH (08:31)
[2016-11-27] MEDS: SENOKOT S TAB PO SCH ×2 (08:31→20:55)
[2016-11-27] MEDS: ASPIRIN 81 MG CHEW TABLET PO SCH (08:31)
[2016-11-27] MEDS: oxyCODONE 15 MG CR TAB PO SCH ×2 (08:35→20:55)
[2016-11-27] MEDS: LISINOPRIL 5 MG TAB PO SCH (08:44)
[2016-11-27] MEDS ORDERED: amLODIPine 5 MG TAB PO SCH (09:00)
[2016-11-27] MEDS ORDERED: FUROSEMIDE 20 MG TAB PO SCH (09:00)
[2016-11-27] MEDS ORDERED: ENOXAPARIN 40 MG/0.4 ML SYRINGE (J1650) SC SCH (09:00)
[2016-11-27] MEDS ORDERED: CHLORTHALIDONE 12.5MG PER 1/2 TABLET PO SCH (09:00)
[2016-11-27 09:56] LABS: FOLATE 9.9 NG/ML (>5.4); VITAMIN B12 LEVEL 350 PG/ML (247-911)
--- NOTE | 2016-11-27 11:54 | IPNPDOC ---
Text Note Date of Service The patient was seen on 11/27/16. NOTE Subjective: Patient seen and examined at bedside. She voiced many concerns regarding her medical care. Discussed at length at bedside. She is upset regarding her fluid restriction. She states her breathing is better then her usual baseline. No other medical complaints. Objective: General: NAD, sitting comfortably in chair HEENT: NC/AT, EOMI, PERRL Lungs: CTA B/L Heart: +S1S2, RRR Abd: soft, NT, +BS Ext: no edema Psych: AAOx3 A/P 1. SOB - multifactorial - PNA, CHF, anemia 2. PNA - continue with empiric antimicrobial therapy - sputum cultures pending 3. Bacteremia - repeat cultures pending - continue with abx as per above 4. Anemia - peripheral smear pending/further w/u pending - patient states she was receiving B12 supplementation in the past - type and screened today - states she has never had a colonoscopy, and does not want one; she also states her son from colon cancer 5. Diabetes 6. CHF - gentle diuresis - gentle fluid restriction 7. PAD - recent angioplasty and stent placement - has been on chronic aspirin, with recent start of plavix - vascular consultation pending 8. Questionable PE - d/w radiology and pulmonology - it is not definitively clear if there is a pulmonary embolus - regardless, if there is a PE, it would be a very small one, she is not a candidate at this time for anti-coagulation given her anemia 9. DVT prophylaxis - mechanical VS,Fishbone, I+O VS, Fishbone, I+O Laboratory Tests 11/27/16 05:06 Red Blood Count 3.19 L, Mean Corpuscular Volume 85.0, Mean Corpuscular Hemoglobin 25.7 L, Mean Corpuscular Hemoglobin Concent 30.3 L, Red Cell Distribution Width 14.7 H, Neutrophils (%) (Auto) 87.2 H, Lymphocytes (%) (Auto ) 7.5 L, Monocytes (%) (Auto) 4.8, Eosinophils (%) (Auto) 0.0, Basophils (%) ( Auto) 0.1, Neutrophils # (Auto) 6.7, Lymphocytes # (Auto) 0.6 L, Monocytes # ( Auto) 0.4, Eosinophils # (Auto) 0.0, Basophils # (Auto) 0.0, Calcium Level 8.9 Vital Signs Date Time Temp Pulse Resp B/P (MAP) Pulse Ox O2 Delivery O2 Flow Rate FiO2 11/27/16 05:29 172/88 11/27/16 04:00 Nasal Cannula 2.0 11/27/16 04:00 97.1 92 18 98 CHAYO WOODS MD Nov 27, 2016 08:31
[2016-11-27 12:27] VITALS: BP 160/78
[2016-11-27] MEDS: CYANOCOBALAMIN 500 MCG TAB PO SCH (15:48)
[2016-11-27 16:00] VITALS: BP 153/87
[2016-11-27 20:00] VITALS: BP 172/68
[2016-11-27] MEDS ORDERED: CHLORTHALIDONE 25 MG TAB PO ONE (23:00)
[2016-11-27] MEDS ORDERED: amLODIPine 5 MG TAB PO ONE (23:00)
[2016-11-28] VITALS (7 sets, daily range): BP systolic 144–190; BP diastolic 60–82
[2016-11-28] MEDS: IPRATROPIUM 0.5MG/ALBUTEROL 2.5MG INH SOL UD 3ML (DUONEB)(J7620) NEB SCH ×3 (01:21→19:50)
[2016-11-28 01:35] LABS: ANION GAP 4 MEQ/L (8-16); BLOOD UREA NITROGEN 33 MG/DL (7-18); CALCIUM LEVEL 9.1 MG/DL (8.8-10.2); CARBON DIOXIDE LEVEL 31 MEQ/L (21-32); CHLORIDE LEVEL 100 MEQ/L (98-107); CREATININE FOR GFR 0.97 MG/DL (0.55-1.02); GLOMERULAR FILTRATION RATE > 60.0 (>39); GLUCOSE, FASTING 209 MG/DL (83-110); MAGNESIUM LEVEL 1.9 MG/DL (1.8-2.4); POTASSIUM SERUM 5.1 MEQ/L (3.5-5.1); SODIUM LEVEL 135 MEQ/L (136-145)
--- NOTE | 2016-11-28 02:11 | IPNPDOC ---
Text Note Date of Service The patient was seen on 11/28/16. NOTE Evening resident and attending were paged regarding patient had 6 beats of VTach. EKG was ordered showed SR, electrolytes were normal as well. Will continue to monitor. Patient has been discussed with Dr. Cuevas. GME ATTESTATION My preceptor for this patient encounter was physically present in the building during the encounter and was fully available. As needed, all aspects of the patient interview, examination, medical decision making process, and medical care plan development were reviewed and approved by the preceptor. Preceptor is aware and concurs with the plan as stated in the body of this note and will attest to such by his/her cosignature. VS,Fishbone, I+O VS, Fishbone, I+O Laboratory Tests 11/27/16 05:06 Red Blood Count 3.19 L, Mean Corpuscular Volume 85.0, Mean Corpuscular Hemoglobin 25.7 L, Mean Corpuscular Hemoglobin Concent 30.3 L, Red Cell Distribution Width 14.7 H, Neutrophils (%) (Auto) 87.2 H, Lymphocytes (%) (Auto ) 7.5 L, Monocytes (%) (Auto) 4.8, Eosinophils (%) (Auto) 0.0, Basophils (%) ( Auto) 0.1, Neutrophils # (Auto) 6.7, Lymphocytes # (Auto) 0.6 L, Monocytes # ( Auto) 0.4, Eosinophils # (Auto) 0.0, Basophils # (Auto) 0.0, Calcium Level 8.9 11/28/16 00:51 Calcium Level 9.1 Vital Signs Date Time Temp Pulse Resp B/P (MAP) Pulse Ox O2 Delivery O2 Flow Rate FiO2 11/28/16 01:12 Nasal Cannula 3.0 11/28/16 00:00 98.7 88 20 164/80 (108) 95 ANNE WILSON DO Nov 28, 2016 02:11
[2016-11-28] MEDS: ALPRAZolam 0.25 MG TAB PO PRN ×3 (04:16→22:01)
[2016-11-28] MEDS: **hydrALAZINE** 10 MG TAB PO SCH ×3 (05:30→17:17)
[2016-11-28] MEDS: CEFEPIME HCL 2 GM in D5W 50 ML IV SCH ×2 (05:30→17:16)
[2016-11-28] MEDS: LEVOTHYROXINE 75MCG TABLET (0.075MG) PO SCH (05:30)
[2016-11-28] MEDS: methylPREDNISolone INJ 125 MG/2 ML VIAL (J2930) IV SCH ×2 (05:30→17:16)
[2016-11-28 06:09] LABS: BASO % 0.1 % (0.0-1.0); EOS % 0.1 % (0.0-3.0); IMMATURE GRANULOCYTE % 0.6 % (0-0); LYMPH # 0.8 10^3/uL (1.5-4.5); LYMPH % 7.6 % (24.0-44.0); MEAN CORPUSCULAR HEMOGLOBIN 25.3 pg (27.0-33.0); MEAN CORPUSCULAR HGB CONC 29.3 g/dl (32.0-36.5); MEAN CORPUSCULAR VOLUME 86.4 fl (80.0-96.0); MONO # 0.4 10^3/uL (0.0-0.8); MONO % 3.9 % (0.0-5.0); NEUTROPHILS # 8.7 10^3/uL (1.8-7.7); NEUTROPHILS % 87.7 % (36.0-66.0); PLATELET COUNT, AUTOMATED 139 10^3/uL (150-450); RED CELL DISTRIBUTION WIDTH 14.7 % (11.5-14.5); WHITE BLOOD COUNT 9.9 10^3/uL (4.0-10.0)
[2016-11-28 06:27] LABS: ANION GAP 6 MEQ/L (8-16); BLOOD UREA NITROGEN 29 MG/DL (7-18); CARBON DIOXIDE LEVEL 30 MEQ/L (21-32); CHLORIDE LEVEL 101 MEQ/L (98-107); CREATININE FOR GFR 0.99 MG/DL (0.55-1.02); GLOMERULAR FILTRATION RATE 58.9 (>39); GLUCOSE, FASTING 300 MG/DL (83-110); POTASSIUM SERUM 4.5 MEQ/L (3.5-5.1); SODIUM LEVEL 137 MEQ/L (136-145)
[2016-11-28] MEDS: TIOTROPIUM INHALER/CAPSULE (SPIRIVA) INH SCH (08:00)
[2016-11-28] MEDS: ADVAIR HFA 230/21MCG INHALER INH SCH ×2 (08:07→19:51)
--- NOTE | 2016-11-28 08:54 | IPNPDOC ---
Text Note Date of Service The patient was seen on 11/28/16. NOTE Subjective: Patient seen and examined at bedside. She voiced many concerns regarding her medical care. Discussed at length at bedside. She is still upset regarding her fluid restriction. She states her breathing is better then her usual baseline. No other medical complaints. Objective: General: NAD, sitting comfortably in chair HEENT: NC/AT, EOMI, PERRL Lungs: CTA B/L Heart: +S1S2, RRR Abd: soft, NT, +BS Ext: no edema Psych: AAOx3 A/P 1. SOB - multifactorial - PNA, CHF, anemia 2. PNA - continue with empiric antimicrobial therapy - sputum cultures pending 3. Bacteremia - repeat cultures pending - continue with abx as per above - one bottle positive for strep parasanguinis - possibly contaminant - ID c/s pending 4. Anemia - peripheral smear pending/further w/u pending - patient states she was receiving B12 supplementation in the past - Hgb dropping - recently started Plavix - states she has never had a colonoscopy, and is adamant that she does not want one; she also states her son from colon cancer - continue to follow Hgb - if worsens will d/w vascular regarding DAPT 5. Diabetes 6. CHF - gentle diuresis - gentle fluid restriction 7. PAD - recent angioplasty and stent placement - has been on chronic aspirin, with recent start of plavix - vascular consultation pending 8. Questionable PE - d/w radiology and pulmonology - it is not definitively clear if there is a pulmonary embolus - regardless, if there is a PE, it would be a very small one, she is not a candidate at this time for anti-coagulation given her anemia 9. DVT prophylaxis - mechanical VS,Fishbone, I+O VS, Fishbone, I+O Laboratory Tests 11/28/16 00:51 Calcium Level 9.1 11/28/16 05:48 Calcium Level 9.0, Red Blood Count 3.08 L, Mean Corpuscular Volume 86.4, Mean Corpuscular Hemoglobin 25.3 L, Mean Corpuscular Hemoglobin Concent 29.3 L, Red Cell Distribution Width 14.7 H, Neutrophils (%) (Auto) 87.7 H, Lymphocytes (%) ( Auto) 7.6 L, Monocytes (%) (Auto) 3.9, Eosinophils (%) (Auto) 0.1, Basophils (% ) (Auto) 0.1, Neutrophils # (Auto) 8.7 H, Lymphocytes # (Auto) 0.8 L, Monocytes # (Auto) 0.4, Eosinophils # (Auto) 0.0, Basophils # (Auto) 0.0 Vital Signs Date Time Temp Pulse Resp B/P (MAP) Pulse Ox O2 Delivery O2 Flow Rate FiO2 11/28/16 07:46 Nasal Cannula 2.0 11/28/16 05:30 144/82 11/28/16 04:00 98.1 92 18 100 CHAYO WOODS MD Nov 28, 2016 08:54
[2016-11-28] MEDS ORDERED: amLODIPine 10 MG TAB PO SCH (09:00)
[2016-11-28] MEDS: CLOPIDOGREL 75 MG TAB PO SCH (09:05)
[2016-11-28] MEDS: oxyCODONE 15 MG CR TAB PO SCH ×2 (09:05→20:55)
[2016-11-28] MEDS: LISINOPRIL 5 MG TAB PO SCH (09:05)
[2016-11-28] MEDS: GABAPENTIN 300 MG CAP PO SCH ×3 (09:08→20:54)
[2016-11-28] MEDS: ATORVASTATIN 20 MG TAB PO SCH (09:08)
[2016-11-28] MEDS: ASPIRIN 81 MG CHEW TABLET PO SCH (09:09)
[2016-11-28] MEDS: CYANOCOBALAMIN 500 MCG TAB PO SCH (09:09)
[2016-11-28] MEDS: SENOKOT S TAB PO SCH ×2 (09:09→20:55)
[2016-11-28] MEDS: amLODIPine 5 MG TAB PO SCH (09:09)
[2016-11-28] MEDS: HumaLOG INSULIN (NovoLOG) PER UNIT SC SCH ×4 (09:10→20:54)
[2016-11-28] MEDS: FUROSEMIDE 20 MG/2 ML VIAL (J1940) IV SCH (09:10)
[2016-11-28] MEDS: LEVEMIR (INSULIN DETEMIR) 1 UNITS/0.01ML SC SCH (09:10)
[2016-11-28 10:43] LABS: ERYTHROCYTE SEDIMENTATION RATE 16 mm/hr (0-30)
--- NOTE | 2016-11-28 16:24 | ECHO ---
DATE OF PROCEDURE: 11/26/2016 REFERRING PHYSICIAN: Dr. Susanne Tijerina INDICATION: Dyspnea. HEIGHT: 160 cm WEIGHT: 45.5 kg 2D MEASUREMENTS: Left atrium: 4.2 cm Aortic root: 3.2 cm Ventricular septum: 1.38 cm Posterior wall: 1.38 cm Left ventricle diastole: 4.3 cm Aortic annulus: 1.8 cm Inferior vena cava: 1.8 cm (more than 50% respiratory variation). DOPPLER MEASUREMENTS: Aortic valve velocity: 161 cm/s LVOT velocity: 106 cm/s LVOT VTI: 21.2 cm Trace mitral regurgitation. Mitral E velocity: 122 cm/s Mitral A velocity: 140 cm/s Mitral deceleration time: 197 ms Estimated right ventricle systolic pressure: 34 mmHg MITRAL ANNULAR TISSUE DOPPLER: E prime septal: 4.5 cm/s E prime lateral: 4.3 cm/s DESCRIPTION: Rhythm was sinus. No pericardial effusion. Image quality was fair. This was a 2D, M-mode, color flow Doppler and pulse wave Doppler examination and included mitral annular tissue Doppler. CONCLUSIONS: 1. Mild concentric left ventricle hypertrophy. Hypokinesis of the inferior basal segment of the left ventricle with normal regional wall motion and wall thickening elsewhere. Normal overall left ventricular (LV) systolic function. Left ventricular ejection fraction (LVEF) 60% by visual estimate. Grade 1 LV diastolic dysfunction (impaired relaxation filling pattern). 2. Mild left atrial dilatation. 3. Suggestive of mild elevation of pulmonary artery systolic pressure. Normal right ventricle size and systolic function. Central venous pressure estimated to be 5-10 mmHg. 4. Mild aortic valve sclerosis of a 3-cusp aortic valve. 5. Otherwise normal appearing echocardiogram Doppler features.
--- NOTE | 2016-11-28 22:42 | ECGEPIP ---
Stationary ECG Study [facility] Test Date: 2016-11-28 Pat Name: ELA LIVINGSTON Department: Room: [place] [address] Gender: F [employer] Vendor: MADHAVI : 1945 Requested By: ANNE WILSON Order Number: [id number] Reading MD: Clinton Irvin Measurements Intervals [place] Rate: 81 P: 60 DC: 138 QRS: 9 QRSD: 103 T: 103 QT: 369 QTc: 429 Interpretive Statements SINUS RHYTHM NONSPECIFIC T-WAVE ABNORMALITY No significant change compared with 11/26/2016. Electronically Signed On 11-28-2016 22:42:03 EDT by Clinton Irvin
[2016-11-29] MEDS: **hydrALAZINE** 10 MG TAB PO SCH ×3 (01:12→11:37)
[2016-11-29] MEDS: IPRATROPIUM 0.5MG/ALBUTEROL 2.5MG INH SOL UD 3ML (DUONEB)(J7620) NEB SCH ×2 (01:49→14:45)
[2016-11-29 04:00] VITALS: BP 143/67
[2016-11-29] MEDS: ALPRAZolam 0.25 MG TAB PO PRN (04:26)
[2016-11-29] MEDS: CEFEPIME HCL 2 GM in D5W 50 ML IV SCH (06:07)
[2016-11-29] MEDS: methylPREDNISolone INJ 125 MG/2 ML VIAL (J2930) IV SCH (06:07)
[2016-11-29] MEDS: LEVOTHYROXINE 75MCG TABLET (0.075MG) PO SCH (06:08)
[2016-11-29 06:15] LABS: BASO % 0.1 % (0.0-1.0); IMMATURE GRANULOCYTE % 0.5 % (0-0); LYMPH # 0.7 10^3/uL (1.5-4.5); LYMPH % 7.7 % (24.0-44.0); MEAN CORPUSCULAR HEMOGLOBIN 25.7 pg (27.0-33.0); MEAN CORPUSCULAR HGB CONC 30.1 g/dl (32.0-36.5); MEAN CORPUSCULAR VOLUME 85.5 fl (80.0-96.0); MONO # 0.4 10^3/uL (0.0-0.8); MONO % 4.2 % (0.0-5.0); NEUTROPHILS % 87.5 % (36.0-66.0); PLATELET COUNT, AUTOMATED 158 10^3/uL (150-450); RED CELL DISTRIBUTION WIDTH 14.9 % (11.5-14.5); WHITE BLOOD COUNT 9.1 10^3/uL (4.0-10.0)
[2016-11-29 06:31] LABS: ANION GAP 5 MEQ/L (8-16); BLOOD UREA NITROGEN 34 MG/DL (7-18); CALCIUM LEVEL 9.3 MG/DL (8.8-10.2); CARBON DIOXIDE LEVEL 32 MEQ/L (21-32); CHLORIDE LEVEL 100 MEQ/L (98-107); CREATININE FOR GFR 0.86 MG/DL (0.55-1.02); GLOMERULAR FILTRATION RATE > 60.0 (>39); GLUCOSE, FASTING 187 MG/DL (83-110); POTASSIUM SERUM 4.4 MEQ/L (3.5-5.1); SODIUM LEVEL 137 MEQ/L (136-145)
[2016-11-29] MEDS ORDERED: LevoFLOXacin 750 MG TABLET PO SCH (07:00)
[2016-11-29 08:00] VITALS: BP 182/40
[2016-11-29] MEDS: TIOTROPIUM INHALER/CAPSULE (SPIRIVA) INH SCH (08:22)
[2016-11-29] MEDS: ADVAIR HFA 230/21MCG INHALER INH SCH (08:23)
[2016-11-29] MEDS ORDERED: FERROUS SULFATE 325MG TAB PO SCH (09:00)
[2016-11-29] MEDS ORDERED: FUROSEMIDE 20 MG TAB PO SCH (09:00)
[2016-11-29] MEDS ORDERED: ASCORBIC ACID 500 MG TAB PO SCH (09:00)
[2016-11-29] MEDS: CLOPIDOGREL 75 MG TAB PO SCH (09:43)
[2016-11-29] MEDS: ATORVASTATIN 20 MG TAB PO SCH (09:44)
[2016-11-29] MEDS: GABAPENTIN 300 MG CAP PO SCH (09:44)
[2016-11-29] MEDS: amLODIPine 5 MG TAB PO SCH (09:45)
[2016-11-29] MEDS: CYANOCOBALAMIN 500 MCG TAB PO SCH (09:45)
[2016-11-29] MEDS: ASPIRIN 81 MG CHEW TABLET PO SCH (09:45)
[2016-11-29] MEDS: SENOKOT S TAB PO SCH (09:46)
[2016-11-29] MEDS: LEVEMIR (INSULIN DETEMIR) 1 UNITS/0.01ML SC SCH (09:53)
[2016-11-29] MEDS: HumaLOG INSULIN (NovoLOG) PER UNIT SC SCH ×2 (09:53→12:11)
[2016-11-29] MEDS: oxyCODONE 15 MG CR TAB PO SCH (09:54)
[2016-11-29] MEDS: LISINOPRIL 5 MG TAB PO SCH (09:55)
[2016-11-29] MEDS ORDERED: LEVA750T7 PO (10:20)
[2016-11-29] MEDS ORDERED: LISI-542 PO (10:20)
[2016-11-29] MEDS ORDERED: FERR1TAB8 PO (10:20)
[2016-11-29] MEDS ORDERED: PRED10TA2 PO (10:20)
[2016-11-29] MEDS ORDERED: AMLO5TAB2 PO (10:20)
[2016-11-29] MEDS ORDERED: HYDR10TAB PO (10:20)
[2016-11-29] MEDS ORDERED: FURO20TA2 PO (10:20)
[2016-11-29] MEDS ORDERED: VITA500T PO (10:20)
[2016-11-29] MEDS ORDERED: predniSONE 50 MG TAB PO ONE (11:00)
--- NOTE | 2016-11-29 11:26 | DS.PDOC ---
Discharge Summary General Date of Admission Nov 26, 2016 at 16:21 Date of Discharge 11/29/16 Specialist/Consultants Involve: RASTA ERICKSON Discharge Summary PROCEDURES PERFORMED DURING STAY: [None]. DISCHARGE DIAGNOSES: 1. Pneumonia 2. Iron deficiency anemia. 3. Peripheral artery disease s/p angioplasty 4. Questionable small PE 5. Possible bacteremia 6. Congestive heart failure 7. hypertensive urgency 8. diabetes COMPLICATIONS/CHIEF COMPLAINT: Copd,Empyema. HISTORY OF PRESENT ILLNESS: 71-year-old female with past medical history of chronic hypoxic respiratory failure, chronic obstructive pulmonary disease (COPD ) on 3 liters of nasal cannula oxygen 24 hours a day, chronic pneumonia of the right upper lung, hypertension, depression, dyslipidemia, tobacco use, neuropathy and low grade urothelial carcinoma of bladder, follows with Dr. Astudillo, presented with worsening shortness of breath and green sputum. She had biopsy done in September with Dr. Erickson, with results showing benign lung tissue consistent with pneumonia and inflammatory infectious process. Her breathing had been worsening, and she also complained of greenish sputum. Otherwise denied any chest pain. Denied any abdominal pain, nausea, vomiting, diarrhea, constipation. HOSPITAL COURSE: Patient admitted for further evaluation and treatment. Her breathing improved with parenteral steroid and antimicrobial therapy. Pulmonology was consulted for assistance. A CT angiogram revealed a very small sub-segmental PE, however on further discussion this was questionable. Hospital stay was significant for anemia, and anti-coagulation for her PE would have been contraindicated. Anemia workup did reveal iron deficiency. She did have one blood culture return positive for Strep parasanguinous. On further workup and discussion with ID this was deemed to be likely a contaminant and treatable with oral antibiotics. Patient was discharged home in stable condition for outpatient followup. DISCHARGE MEDICATIONS: Please see below. ALLERGIES: Please see below. PHYSICAL EXAMINATION ON DISCHARGE: VITAL SIGNS: Please see below. GENERAL: NAD, chronically ill appearing HEENT: NC/AT, EOMI, PERRL NECK: supple CARDIOVASCULAR EXAMINATION: +S1S2, RRR RESPIRATORY EXAMINATION: diminished breath sounds, CTA B/L ABDOMINAL EXAMINATION: soft, NT, +BS EXTREMITIES: no edema PSYCHIATRIC EXAMINATION: AAOx3 LABORATORY DATA: Please see below. PROGNOSIS: guarded ACTIVITY: [As tolerated]. DISPO: Discharge home DISCHARGE CONDITION: [Stable]. TIME SPENT ON DISCHARGE: Greater than 30 minutes. Vital Signs/I&Os Vital Signs Date Time Temp Pulse Resp B/P (MAP) Pulse Ox O2 Delivery O2 Flow Rate FiO2 11/29/16 09:55 160/68 11/29/16 09:54 22 11/29/16 09:45 85 11/29/16 08:00 97.4 96 11/29/16 04:00 Nasal Cannula 3.0 I&O- Last 24 Hours up to 6 AM 11/30/16 05:59 Intake Total 240 ml Balance 240 ml Laboratory Data Labs 24H Laboratory Tests 2 11/28/16 11:27: Bedside Glucose (Misc Panel) 526*H 11/28/16 11:51: Bedside Glucose Confirm (Misc) 518*H 11/28/16 16:35: Bedside Glucose (Misc Panel) 437H 11/28/16 20:35: Bedside Glucose (Misc Panel) 341H 11/29/16 05:45: Immature Granulocyte % (Auto) 0.5H, White Blood Count 9.1, Red Blood Count 3.38L , Hemoglobin 8.7L, Hematocrit 28.9L, Mean Corpuscular Volume 85.5, Mean Corpuscular Hemoglobin 25.7L, Mean Corpuscular Hemoglobin Concent 30.1L, Red Cell Distribution Width 14.9H, Platelet Count 158, Neutrophils (%) (Auto) 87.5H , Lymphocytes (%) (Auto) 7.7L, Monocytes (%) (Auto) 4.2, Eosinophils (%) (Auto) 0.0, Basophils (%) (Auto) 0.1, Neutrophils # (Auto) 8.0H, Lymphocytes # (Auto) 0.7L, Monocytes # (Auto) 0.4, Eosinophils # (Auto) 0.0, Basophils # (Auto) 0.0, Immature Granulocyte # (Auto) 0.1H, Nucleated Red Blood Cells % (auto) 0.0, Anion Gap 5L, Glomerular Filtration Rate > 60.0, Blood Urea Nitrogen 34H, Creatinine 0.86, Sodium Level 137, Potassium Level 4.4, Chloride Level 100, Carbon Dioxide Level 32, Calcium Level 9.3, BS-Xtz-O-Type Natriuretic Peptide 4469H 11/29/16 08:44: Bedside Glucose (Misc Panel) 311H CBC/BMP Laboratory Tests 11/29/16 05:45 Red Blood Count 3.38 L, Mean Corpuscular Volume 85.5, Mean Corpuscular Hemoglobin 25.7 L, Mean Corpuscular Hemoglobin Concent 30.1 L, Red Cell Distribution Width 14.9 H, Neutrophils (%) (Auto) 87.5 H, Lymphocytes (%) (Auto ) 7.7 L, Monocytes (%) (Auto) 4.2, Eosinophils (%) (Auto) 0.0, Basophils (%) ( Auto) 0.1, Neutrophils # (Auto) 8.0 H, Lymphocytes # (Auto) 0.7 L, Monocytes # ( Auto) 0.4, Eosinophils # (Auto) 0.0, Basophils # (Auto) 0.0, Calcium Level 9.3 FSBS Laboratory Tests Test 11/28/16 11:27 11/28/16 16:35 11/28/16 20:35 11/29/16 08:44 Range/Units Bedside Glucose (Misc Panel) 526 437 341 311 83-110 MG/DL Microbiology Microbiology 11/27/16 Blood Culture - Preliminary, Resulted No Growth after 48 hours. All Specime... 11/27/16 Blood Culture - Preliminary, Resulted No Growth after 48 hours. All Specime... 11/26/16 Blood Culture - Preliminary, Resulted Streptococcus Parasanguinis 11/26/16 Blood Culture - Preliminary, Resulted No Growth after 72 hours. All specime... 11/26/16 Respiratory Virus Panel (PCR) (SANDRA) - Final, Complete 11/26/16 Gram Stain - Final, Complete 11/26/16 Sputum Culture - Final, Complete Klebsiella Ozaenae Yeast Like Organism Discharge Medications Scheduled (Anoro Ellipta 62.5-25 Mcg/INH) 1 Aer Aer, 1 AER INH DAILY, (Reported) (Aspirin) 81 Mg Chw, 81 MG PO DAILY, (Reported) Amlodipine Besylate (Amlodipine Besylate) 5 Mg Tab, 5 MG PO DAILY Ascorbic Acid (Vitamin C) 500 Mg Tab, 500 MG PO BID Atorvastatin Calcium (Atorvastatin Calcium) 20 Mg Tab, 40 MG PO DAILY, (Reported ) Clopidogrel Bisulfate (Clopidogrel) 75 Mg Tab, 75 MG PO DAILY, (Reported) Ferrous Sulfate (Ferrous Sulfate) 325 Mg Tab, 325 MG PO BID Furosemide (Furosemide) 20 Mg Tab, 20 MG PO DAILY Gabapentin (Gabapentin) 600 Mg Tab, 600 MG PO TID, (Reported) Hydralazine HCl (Hydralazine HCl) 10 Mg Tab, 10 MG PO Q6H Insulin Glargine (Lantus) 1 Units/0.01 Ml Susp, 30 UNITS SC DAILY, (Reported) Levofloxacin Hemihydrate (Levaquin) 750 Mg Tab, 750 MG PO Q48H Levothyroxine Sodium (Levoxyl) 75 Mcg Tab, 75 MCG PO DAILY, (Reported) Lisinopril (Lisinopril) 5 Mg Tab, 5 MG PO DAILY Oxycodone HCl (Oxycontin) 15 Mg Tab, 15 MG PO BID, (Reported) Prednisone (Prednisone) 10 Mg Tab, 10 MG PO TAPER Take 4 tabs daily x 3 days, then 3 tabs daily x 3 days, then 2 tabs daily x 3 days, then 1 tab daily x 3 days and stop Tiotropium [place] Monohydrate (Spiriva Handihaler) 18 Mcg Cap, 1 INHALATION INH DAILY, (Reported) Vitamin D (Drisdol) 50,000 Unit Cap, 50,000 UNIT PO ASDIRECTED, (Reported) TAKES ON FRIDAY MORNINGS Scheduled PRN Acetaminophen/Hydrocodone ([place] 5-325 mg) 1 Tab Tab, 1 TAB PO Q4H PRN for PAIN, (Reported) Albuterol Sulfate (Proair Hfa) 108 Mcg/Act Aer, 2 PUFF INH QID PRN for SHORTNESS OF BREATH, (Reported) Albuterol Sulfate (Albuterol Sulfate) 2.5 Mg/3 Ml Nebu, 2.5 MG INH Q4H PRN for SHORTNESS OF BREATH, (Reported) Alprazolam (Alprazolam) 0.5 Mg Tab, 0.5 MG PO Q6H PRN for ANXIETY, (Reported) Allergies Coded Allergies: Latex (Unverified Allergy, Intermediate, RASH, 07/24/16) Red Dye (Unverified Allergy, Intermediate, rash, 12/19/15) Sulfa Antibiotics (Verified Allergy, Intermediate, RASH, 12/19/15) Bacitracin (Unverified Allergy, Unknown, 10/05/15) Cortisone (Unverified Allergy, Unknown, 10/05/15) Fluoxetine (Unverified Allergy, Unknown, 10/05/15) Neomycin (Unverified Allergy, Unknown, 10/05/15) Polymyxin B (Unverified Allergy, Unknown, 10/05/15) Tramadol (Unverified Allergy, Unknown, 10/05/15) Acetaminophen (Unverified Adverse Reaction, Mild, UPSETS STOMACH, 07/24/16) Oxycodone (Verified Adverse Reaction, Mild, itchy, 07/24/16) CHAYO WOODS MD Nov 29, 2016 11:26
[2016-11-29 11:37] VITALS: BP 180/76
[2016-11-29 12:00] VITALS: BP 182/58
[2016-11-30] MEDS ORDERED: predniSONE 50 MG TAB PO SCH (09:00)
== END 2016-11-29 17:23 | disposition home or self-care (01) | DRG 190 ==
LOC: M ED 01:59 → EDBD 01:59 → M ED INP 02:00 → M MS4PR 06:55 → M PCU 11:45 → OBSVTOIN 16:21
PROVIDERS: ADMIT Hospitalist; ATTEND Internal Medicine
DX: J44.1 Chronic obstructive pulmonary disease with (acute) exacerbation (principal); J18.9 Pneumonia, unspecified organism; I26.99 Other pulmonary embolism without acute cor pulmonale; J96.12 Chronic respiratory failure with hypercapnia; J90 Pleural effusion, not elsewhere classified; I47.2 Ventricular tachycardia; E46 Unspecified protein-calorie malnutrition; I50.32 Chronic diastolic (congestive) heart failure; J96.11 Chronic respiratory failure with hypoxia; I27.20 Pulmonary hypertension, unspecified; E11.51 Type 2 diabetes mellitus with diabetic peripheral angiopathy without gangrene; E11.40 Type 2 diabetes mellitus with diabetic neuropathy, unspecified; E11.65 Type 2 diabetes mellitus with hyperglycemia; D50.9 Iron deficiency anemia, unspecified; I16.0 Hypertensive urgency; I11.0 Hypertensive heart disease with heart failure; F32.9 Major depressive disorder, single episode, unspecified; E78.5 Hyperlipidemia, unspecified; Z91.040 Latex allergy status; Z88.2 Allergy status to sulfonamides; Z91.041 Radiographic dye allergy status; Z88.5 Allergy status to narcotic agent; Z88.6 Allergy status to analgesic agent; Z87.891 Personal history of nicotine dependence; Z79.82 Long term (current) use of aspirin; Z79.4 Long term (current) use of insulin; Z79.891 Long term (current) use of opiate analgesic; Z79.899 Other long term (current) drug therapy; Z99.81 Dependence on supplemental oxygen; Z79.52 Long term (current) use of systemic steroids; Z85.51 Personal history of malignant neoplasm of bladder

== ENCOUNTER → 2016-12-31 | Outpatient (REF) | payer OTHER ==
[~2016-12-31] MED LIST changes: +ALBU83IN INH; +AMLO5TAB2 PO; +ASPI81CH PO; +FERR1TAB8 PO; +HYDR10TAB PO; +LEVA750T7 PO; +LISI-542 PO; +LISI2.5T3 PO; +NORC1TAB4 PO; +PRED5TA PO; +SPIR1CAP INH; +VITA500T PO
== END ==
LOC: M LAB REF 16:54
PROVIDERS: ATTEND Physician Assistant Medical
DX: N39.0 Urinary tract infection, site not specified (principal)

== ENCOUNTER → 2017-01-16 | Outpatient (CLI) | payer OTHER ==
--- NOTE | 2017-01-17 07:47 | REP ---
NONCONTRAST CHEST CT: CLINICAL: Followup consolidations and effusions. COMPARISON: 11/26/2016. FINDINGS: A moderate to significant area of consolidation is appreciated along the periphery of the right upper lobe with air bronchograms and associated mediastinal and presumed right hilar lymph nodes. The previously noted bilateral pleural effusions and further scattered areas of ill-defined consolidation have otherwise resolved. Underlying chronic age related interstitial changes and scattered fibrosis/scarring again identified predominantly involving the right mid to lower lung zone and right base. The mediastinum demonstrates significant atherosclerotic disease to the thoracic aorta and coronary arteries without aortic aneurysm or cardiomegaly. No pericardial effusion. No pleural effusion or pneumothorax. Surrounding musculoskeletal structures demonstrate age related degenerative changes. IMPRESSION: 1. Continued evidence for moderate to significant area of consolidation with air bronchograms along the periphery of the right upper lobe with associated adenopathy. These findings require further investigation and followup to resolution. Differential diagnosis includes chronic atelectasis, continued acute pneumonia, as well as other pathology including neoplasm. 2. The previously noted pleural effusions and further scattered ill-defined areas of consolidation on examination dated 11/26/2016 have otherwise resolved. Signed by Danis Greenfield MD 01/17/2017 07:50 A
== END ==
LOC: M RAD 14:51
PROVIDERS: ATTEND Internal Medicine Pulmonary Disease
DX: R91.8 Other nonspecific abnormal finding of lung field (principal)

== ENCOUNTER → 2017-03-05 | Outpatient (CLI) | payer OTHER ==
[2017-03-05 18:57] LABS: BASO # 0.1 10^3/uL (0.0-0.2); BASO % 0.6 % (0.0-1.0); EOS # 0.1 10^3/uL (0.0-0.50); HEMATOCRIT 38.3 % (36.0-47.0); HEMOGLOBIN 12.4 g/dl (12.0-16.0); IMMATURE GRANULOCYTE # 0.1 10^3/uL (0-0); IMMATURE GRANULOCYTE % 0.5 % (0-0); LYMPH # 0.8 10^3/uL (1.5-4.5); LYMPH % 7.6 % (24.0-44.0); MEAN CORPUSCULAR HEMOGLOBIN 29.5 pg (27.0-33.0); MEAN CORPUSCULAR HGB CONC 32.4 g/dl (32.0-36.5); MONO # 0.2 10^3/uL (0.0-0.8); MONO % 2.4 % (0.0-5.0); NEUTROPHILS # 8.7 10^3/uL (1.8-7.7); NEUTROPHILS % 87.9 % (36.0-66.0); PLATELET COUNT, AUTOMATED 168 10^3/uL (150-450); RED BLOOD COUNT 4.21 10^6/uL (4.00-5.40); RED CELL DISTRIBUTION WIDTH 16.6 % (11.5-14.5); WHITE BLOOD COUNT 9.9 10^3/uL (4.0-10.0)
[2017-03-05 19:47] LABS: TOTAL 25(OH) VITAMIN D 70.4 NG/ML (30.0-100.0)
[2017-03-05 19:53] LABS: ALBUMIN/GLOBULIN RATIO 1.21 (1.00-1.93); ALKALINE PHOSPHATASE 67 U/L (45-117); ALT/SGPT 28 U/L (12-78); ANION GAP 6 MEQ/L (8-16); AST/SGOT 23 U/L (7-37); BILIRUBIN,TOTAL 0.3 MG/DL (0.2-1.0); BLOOD UREA NITROGEN 30 MG/DL (7-18); CALCIUM LEVEL 9.5 MG/DL (8.8-10.2); CARBON DIOXIDE LEVEL 32 MEQ/L (21-32); CHLORIDE LEVEL 102 MEQ/L (98-107); CREATININE FOR GFR 1.13 MG/DL (0.55-1.02); FREE T4 1.13 NG/DL (0.76-1.46); GLOMERULAR FILTRATION RATE 50.5 (>39); GLUCOSE, FASTING 246 MG/DL (70-100); SODIUM LEVEL 140 MEQ/L (136-145); TOTAL PROTEIN 7.3 GM/DL (6.4-8.2)
[2017-03-05 19:56] LABS: POTASSIUM SERUM 5.3 MEQ/L (3.5-5.1)
[2017-03-05 21:17] LABS: ESTIMATED AVERAGE GLUCOSE 209 MG/DL (60-110); HEMOGLOBIN A1c 8.9 %
== END ==
LOC: M WUC 15:31
DX: E03.9 Hypothyroidism, unspecified (principal); D50.9 Iron deficiency anemia, unspecified; E55.9 Vitamin D deficiency, unspecified; E11.65 Type 2 diabetes mellitus with hyperglycemia
CPT/HCPCS: 84443

== ENCOUNTER → 2017-05-28 | Outpatient (REF) | payer OTHER | LOC: M LAB REF 17:10 | DX: J43.1 Panlobular emphysema (principal) | CPT/HCPCS: 87186; 87205 ==

== ENCOUNTER 2017-06-02 08:45 | Day surgery (SDC) | payer OTHER ==
[~2017-06-02 08:45] MED LIST changes: +ACETAMINOPHEN 325 MG TAB PO; -ADVA230A INH; -ALBU83IN INH; -ALPR0.5T3 PO; -AMLO10TA2 PO; -AMLO5TAB2 PO; -AMOX875T PO; -ANOR1AER INH; -ASPI325T PO; -ASPI81CH PO; -ATEN100T PO; -ATOR1TAB21 PO; -BAYE1TAB5 PO; -BREO1INH INH; -BROV15NE IN; -BUDE0.254 INH; -CLONI1TA PO; -CLOP75TA2 PO; -DOXY100C PO; -DOXY100T2 PO; -DRIS50002 PO; -FERR1TAB8 PO; -FERR325T3 PO; -FURO20TA2 PO; -GABA-279 PO; -GABA600T PO; -GLIP10TA6 PO; -HYDR-3713 PO; -HYDR10TAB PO; -HYDR12CA PO; -HYDR50TA PO; -INSULANT SC; -INVO300T PO; -KETO10TAB PO; -LEVA750T7 PO; -LEVO75TA34 PO; -LISI-542 PO; -LISI10TA4 PO; -LISI2.5T3 PO; -LISI2.5T4 PO; -METF10004 PO; -MUCI600T31 PO; -NEUR300C PO; -NORC1TAB4 PO; -NORCOTAB PO; -NYST1POW9 TOP; -OXYC15TA66 PO; +PHENYLEPHRINE HCL 10 % OPHTH. SOL 5ML OD; -POLY33502 PO; -PRED10TA2 PO; -PRED5TA PO; -PROAAER10 INH; -SPIR1CAP INH; -TIOT18INH INH; -VITA500046 PO; -VITA500T PO; -ZOLO100T PO
[2017-06-02] MEDS ORDERED: TRIMETHOBENZAMIDE 300 MG CAP PO (09:00)
[2017-06-02] MEDS: LIDOCAINE 3.5 % 1ML OPHTH TOPICAL GEL OU (09:08)
[2017-06-02] MEDS: OFLOXACIN 0.3 % (OCUFLOX) OPTH SOL 5ML OD (09:08)
[2017-06-02] MEDS: CYCLOPENTOLATE 2% OPHTH SOLN 2ML BTL OD (09:09)
[2017-06-02] MEDS: TROPICAMIDE 1% OPHTH SOLN 2ML OD (09:09)
[2017-06-02] MEDS: PHENYLEPHRINE 2.5% OPHTH SOL 2ML OD (09:09)
[2017-06-02 09:17] LABS: BEDSIDE GLUCOSE 85 MG/DL (83-110)
[2017-06-02] MEDS ORDERED: D5W 1,000 ML IV (10:00)
[2017-06-02] MEDS ORDERED: LEVALBUTEROL 1.25 MG/0.5 ML CONCENTRATE NEB INH (10:30)
[2017-06-02] MEDS ORDERED: MIDAZOLAM INJ 2 MG/2 ML VIAL (J2250) As Ordered (12:08)
[2017-06-02] MEDS ORDERED: fentaNYL 100 MCG/2 ML INJECTION (J3010) As Ordered (12:08)
[2017-06-02] MEDS ORDERED: PROPOFOL 200 MG/20 ML VIAL As Ordered (12:10)
[2017-06-02] MEDS: LIDOCAINE 1% SDV 5 ML VIAL As Ordered (12:21)
[2017-06-02] MEDS: HEALON DUET (HEALON 10MG/ML 0.55ML & HEALON ENDOCOAT 30MG/ML 0.85ML) As Ordered (12:21)
[2017-06-02] MEDS: POVIDONE-IODINE 5% OPHTH PREP SOL 30ML As Ordered (12:21)
[2017-06-02] MEDS: MOXIFLOXACIN IN BSS 0.25MG/0.25ML INTRACAMERAL INJ (OR EYE ONLY)(J2280) As Ordered (12:22)
[2017-06-02] MEDS: BSS with VANC/TOB/EPI for EYE CASES IR (12:22)
[2017-06-02] MEDS: TRIAMCINOLONE PRES FR 40 MG/ML 1ML(TRIESENCE)(OR EYE ONLY)(J3300 PER 1MG) As Ordered (12:22)
[2017-06-02] MEDS ORDERED: ONDANSETRON 4MG/2ML VIAL (J2405) IV (13:15)
== END 2017-06-02 13:40 | disposition home or self-care (01) ==
LOC: M SDC 08:45
DX: H25.9 Unspecified age-related cataract (principal); E11.9 Type 2 diabetes mellitus without complications; I10 Essential (primary) hypertension; K21.9 Gastro-esophageal reflux disease without esophagitis; F17.210 Nicotine dependence, cigarettes, uncomplicated; J44.9 Chronic obstructive pulmonary disease, unspecified; Z79.4 Long term (current) use of insulin; Z88.2 Allergy status to sulfonamides; Z88.8 Allergy status to other drugs, medicaments and biological substances; E55.9 Vitamin D deficiency, unspecified; Z79.51 Long term (current) use of inhaled steroids; Z79.82 Long term (current) use of aspirin; Z79.899 Other long term (current) drug therapy; F32.9 Major depressive disorder, single episode, unspecified; F41.9 Anxiety disorder, unspecified
CPT/HCPCS: 66984

== ENCOUNTER → 2017-06-06 | Outpatient (CLI) | payer OTHER ==
[2017-06-06 16:32] LABS: BASO # 0.1 10^3/uL (0.0-0.2); BASO % 0.6 % (0.0-1.0); EOS # 0.2 10^3/uL (0.0-0.50); EOS % 1.8 % (0.0-3.0); HEMATOCRIT 39.9 % (36.0-47.0); HEMOGLOBIN 12.9 g/dl (12.0-15.5); IMMATURE GRANULOCYTE % 0.7 % (0-3.0); LYMPH # 0.8 10^3/uL (1.5-4.5); LYMPH % 6.4 % (24.0-44.0); MEAN CORPUSCULAR HEMOGLOBIN 31.3 pg (27.0-33.0); MEAN CORPUSCULAR HGB CONC 32.3 g/dl (32.0-36.5); MEAN CORPUSCULAR VOLUME 96.8 fl (80.0-96.0); MONO # 0.3 10^3/uL (0.0-0.8); MONO % 2.6 % (0.0-5.0); NEUTROPHILS # 10.3 10^3/uL (1.8-7.7); NEUTROPHILS % 87.9 % (36.0-66.0); PLATELET COUNT, AUTOMATED 185 10^3/uL (150-450); RED BLOOD COUNT 4.12 10^6/uL (4.00-5.40); RED CELL DISTRIBUTION WIDTH 13.9 % (11.5-14.5); WHITE BLOOD COUNT 11.8 10^3/uL (4.0-10.0)
[2017-06-06 16:46] LABS: ANION GAP 8 MEQ/L (8-16); BLOOD UREA NITROGEN 30 MG/DL (7-18); CALCIUM LEVEL 9.1 MG/DL (8.8-10.2); CARBON DIOXIDE LEVEL 27 MEQ/L (21-32); CHLORIDE LEVEL 103 MEQ/L (98-107); CREATININE FOR GFR 1.59 MG/DL (0.55-1.30); FERRITIN 60 NG/ML (8-252); GLOMERULAR FILTRATION RATE 34.1 (>39); GLUCOSE, FASTING 400 MG/DL (70-100); IRON (FE) 77 UG/DL (50-170); PERCENT SATURATION 25.3 % (13.2-45.0); SODIUM LEVEL 138 MEQ/L (136-145); TOTAL IRON BINDING CAPACITY 304 UG/DL (250-450)
[2017-06-06 16:49] LABS: ESTIMATED AVERAGE GLUCOSE 183 MG/DL (60-110)
== END ==
LOC: M WUC 14:05
DX: E11.59 Type 2 diabetes mellitus with other circulatory complications (principal); D50.9 Iron deficiency anemia, unspecified
CPT/HCPCS: 83550

== ENCOUNTER → 2017-06-09 | Outpatient (REF) | payer OTHER | LOC: M LAB REF 17:10 | DX: N39.0 Urinary tract infection, site not specified (principal) | CPT/HCPCS: 87086 ==

== ENCOUNTER → 2017-06-12 | Outpatient (REF) | payer OTHER | LOC: M LAB REF 13:12 | DX: R06.00 Dyspnea, unspecified (principal) | CPT/HCPCS: 87205 ==

== ENCOUNTER → 2017-07-04 | Outpatient (CLI) | payer OTHER ==
[2017-07-04 13:56] LABS: ESTIMATED AVERAGE GLUCOSE 192 MG/DL (60-110); HEMOGLOBIN A1c 8.3 %
[2017-07-04 14:06] LABS: ANION GAP 6 MEQ/L (8-16); BLOOD UREA NITROGEN 16 MG/DL (7-18); CALCIUM LEVEL 9.4 MG/DL (8.8-10.2); CARBON DIOXIDE LEVEL 32 MEQ/L (21-32); CHLORIDE LEVEL 105 MEQ/L (98-107); CREATININE FOR GFR 0.92 MG/DL (0.55-1.30); GLOMERULAR FILTRATION RATE > 60.0 (>39); GLUCOSE, FASTING 101 MG/DL (70-100); SODIUM LEVEL 143 MEQ/L (136-145)
== END ==
LOC: M WUC 12:27
DX: E11.59 Type 2 diabetes mellitus with other circulatory complications (principal)
CPT/HCPCS: 83036

== ENCOUNTER → 2017-07-15 | Outpatient (REF) | payer OTHER | LOC: M LAB REF 16:54 | DX: N39.0 Urinary tract infection, site not specified (principal) | CPT/HCPCS: 87086 ==

== ENCOUNTER → 2017-09-08 | Outpatient (CLI) | payer OTHER ==
[2017-09-08 17:15] LABS: BASO # 0.1 10^3/uL (0.0-0.2); BASO % 0.5 % (0.0-1.0); EOS # 0.1 10^3/uL (0.0-0.50); EOS % 0.6 % (0.0-3.0); HEMATOCRIT 40.9 % (36.0-47.0); HEMOGLOBIN 13.4 g/dl (12.0-15.5); IMMATURE GRANULOCYTE % 0.6 % (0-3.0); LYMPH # 0.8 10^3/uL (1.5-4.5); LYMPH % 6.5 % (24.0-44.0); MEAN CORPUSCULAR HEMOGLOBIN 31.9 pg (27.0-33.0); MEAN CORPUSCULAR HGB CONC 32.8 g/dl (32.0-36.5); MEAN CORPUSCULAR VOLUME 97.4 fl (80.0-96.0); MONO # 0.3 10^3/uL (0.0-0.8); MONO % 2.7 % (0.0-5.0); NEUTROPHILS # 11.1 10^3/uL (1.8-7.7); NEUTROPHILS % 89.1 % (36.0-66.0); PLATELET COUNT, AUTOMATED 178 10^3/uL (150-450); RED CELL DISTRIBUTION WIDTH 14.3 % (11.5-14.5); WHITE BLOOD COUNT 12.4 10^3/uL (4.0-10.0)
[2017-09-08 17:42] LABS: ESTIMATED AVERAGE GLUCOSE 148 MG/DL (60-110); HEMOGLOBIN A1c 6.8 %
[2017-09-08 17:46] LABS: ALBUMIN 3.9 GM/DL (3.2-5.2); ALBUMIN/GLOBULIN RATIO 1.34 (1.00-1.93); ALKALINE PHOSPHATASE 72 U/L (45-117); ALT/SGPT 29 U/L (12-78); ANION GAP 9 MEQ/L (8-16); AST/SGOT 29 U/L (7-37); BILIRUBIN,TOTAL 0.6 MG/DL (0.2-1.0); BLOOD UREA NITROGEN 22 MG/DL (7-18); CALCIUM LEVEL 9.4 MG/DL (8.8-10.2); CARBON DIOXIDE LEVEL 29 MEQ/L (21-32); CHLORIDE LEVEL 107 MEQ/L (98-107); CREATININE FOR GFR 1.08 MG/DL (0.55-1.30); FERRITIN 61 NG/ML (8-252); FREE T4 1.27 NG/DL (0.76-1.46); GLOMERULAR FILTRATION RATE 53.1 (>39); GLUCOSE, FASTING 159 MG/DL (70-100); IRON (FE) 56 UG/DL (50-170); SODIUM LEVEL 145 MEQ/L (136-145); TOTAL IRON BINDING CAPACITY 280 UG/DL (250-450); TOTAL PROTEIN 6.8 GM/DL (6.4-8.2)
[2017-09-08 17:54] LABS: POTASSIUM SERUM 5.3 MEQ/L (3.5-5.1)
[2017-09-08 18:11] LABS: MAU/CREAT RATIO 827.3 MCG/MG (0.0-30.0)
== END ==
LOC: M SMT 14:52
DX: E11.59 Type 2 diabetes mellitus with other circulatory complications (principal); E03.9 Hypothyroidism, unspecified; D50.9 Iron deficiency anemia, unspecified
CPT/HCPCS: 83550

== ENCOUNTER → 2017-11-26 | Outpatient (CLI) | payer OTHER | LOC: M SMT 15:16 | DX: J43.1 Panlobular emphysema (principal) | CPT/HCPCS: 71046 ==

== ENCOUNTER → 2017-12-09 | Outpatient (CLI) | payer OTHER ==
[2017-12-09 17:57] LABS: BASO # 0.1 10^3/uL (0.0-0.2); BASO % 0.5 % (0.0-1.0); EOS # 0.1 10^3/uL (0.0-0.50); EOS % 0.6 % (0.0-3.0); HEMATOCRIT 37.9 % (36.0-47.0); HEMOGLOBIN 11.8 g/dl (12.0-15.5); IMMATURE GRANULOCYTE % 0.5 % (0-3.0); LYMPH # 0.9 10^3/uL (1.5-4.5); LYMPH % 6.6 % (24.0-44.0); MEAN CORPUSCULAR HEMOGLOBIN 30.1 pg (27.0-33.0); MEAN CORPUSCULAR HGB CONC 31.1 g/dl (32.0-36.5); MEAN CORPUSCULAR VOLUME 96.7 fl (80.0-96.0); MONO # 0.5 10^3/uL (0.0-0.8); NEUTROPHILS # 11.4 10^3/uL (1.8-7.7); NEUTROPHILS % 87.8 % (36.0-66.0); PLATELET COUNT, AUTOMATED 219 10^3/uL (150-450); RED BLOOD COUNT 3.92 10^6/uL (4.00-5.40); RED CELL DISTRIBUTION WIDTH 14.6 % (11.5-14.5); WHITE BLOOD COUNT 12.9 10^3/uL (4.0-10.0)
[2017-12-09 18:15] LABS: ALBUMIN 3.9 GM/DL (3.2-5.2); ALKALINE PHOSPHATASE 84 U/L (45-117); ALT/SGPT 29 U/L (12-78); ANION GAP 6 MEQ/L (8-16); AST/SGOT 32 U/L (7-37); BILIRUBIN,TOTAL 0.4 MG/DL (0.2-1.0); BLOOD UREA NITROGEN 28 MG/DL (7-18); CALCIUM LEVEL 9.6 MG/DL (8.8-10.2); CARBON DIOXIDE LEVEL 30 MEQ/L (21-32); CHLORIDE LEVEL 107 MEQ/L (98-107); CREATININE FOR GFR 1.22 MG/DL (0.55-1.30); FREE T4 1.35 NG/DL (0.76-1.46); GLOMERULAR FILTRATION RATE 46.1 (>39); GLUCOSE, FASTING 81 MG/DL (70-100); POTASSIUM SERUM 5.4 MEQ/L (3.5-5.1); SODIUM LEVEL 143 MEQ/L (136-145); THYROID STIMULATING HORMONE 0.464 uIU/ML (0.358-3.740); TOTAL PROTEIN 6.9 GM/DL (6.4-8.2)
[2017-12-09 18:16] LABS: TOTAL 25(OH) VITAMIN D 44.4 NG/ML (30.0-100.0); VITAMIN B12 LEVEL > 2000.0 PG/ML
[2017-12-09 18:17] LABS: FOLATE > 24.0 NG/ML
== END ==
LOC: M SMT 14:56
DX: R53.83 Other fatigue (principal)
CPT/HCPCS: 82746

== ENCOUNTER 2017-12-23 06:54 | Day surgery (SDC) | payer OTHER ==
[~2017-12-23] VITALS: Ht 165.1 cm; Wt 55.3 kg
[~2017-12-23 06:54] MED LIST changes: -ACETAMINOPHEN 325 MG TAB PO; +ACETAMINOPHEN 325 MG TAB PO PRN; +ADVA230A INH; +ALBU83IN INH; +ALPR0.5T3 PO; +AMLO10TA5 PO; +AMLO5TAB6 PO; +AMOX875T PO; +ANOR1AER INH; +ASPI325T PO; +ASPI81CH PO; +ATEN100T PO; +ATOR1TAB21 PO; +BAYE1TAB5 PO; +BREO1INH INH; +BROV15NE IN; +BUDE0.254 INH; +CLONI1TA PO; +CLOP75TA2 PO; +DOXY100C PO; +DOXY100T2 PO; +DRIS50003 PO; +FERR1TAB8 PO; +FERR325T3 PO; +FURO20TA2 PO; +GABA-1171 PO; +GABA600T4 PO; +GLIP10TA6 PO; +HEALON DUET PRO(HEALON 10MG/ML 0.55ML & HEALON ENDOCOAT 30MG/ML 0.85ML) As Ordered ONE; +HYDR-3713 PO; +HYDR-4514 PO; +HYDR10TAB PO; +HYDR12CA PO; +HYDR50TA PO; +INSULANT SC; +INVO300T PO; +KETO10TAB PO; +LEVA750T7 PO; +LEVO75TA34 PO; +LIDOCAINE 1% SDV 5 ML VIAL As Ordered ONE; +LISI-542 PO; +LISI10TA4 PO; +LISI2.5T5 PO; +LISI2.5T76 PO; +METF10004 PO; +MOXIFLOXACIN IN BSS 0.25MG/0.25ML INTRACAMERAL INJ (OR EYE ONLY)(J2280) As Ordered ONE; +MUCI600T31 PO; +NEUR300C PO; +NORC1TAB4 PO; +NORCOTAB PO; +NYST1POW9 TOP; +OXYC15TA66 PO; -PHENYLEPHRINE HCL 10 % OPHTH. SOL 5ML OD; +POLY1POW38 PO; +POVIDONE-IODINE 5% OPHTH PREP SOL 30ML As Ordered ONE; +PRED10TA2 PO; +PRED5TA PO; +PROAAER10 INH; +SPIR1CAP INH; +TIOT18INH INH; +TRIAMCINOLONE PRES FR 40 MG/ML 1ML(TRIESENCE)(OR EYE ONLY)(J3300 PER 1MG) As Ordered ONE; +VITA500046 PO; +VITA500T PO; +ZOLO100T PO
[2017-12-23] MEDS ORDERED: fentaNYL 100 MCG/2 ML INJECTION (J3010) As Ordered ONE (06:59)
[2017-12-23] MEDS ORDERED: MIDAZOLAM INJ 2 MG/2 ML VIAL (J2250) As Ordered ONE (06:59)
[2017-12-23] MEDS ORDERED: CYCLOPENTOLATE 2% OPHTH SOLN 2ML BTL OS ONE (07:00)
[2017-12-23] MEDS ORDERED: PHENYLEPHRINE 2.5% OPHTH SOL 2ML OS ONE (07:00)
[2017-12-23] MEDS ORDERED: PHENYLEPHRINE HCL 10 % OPHTH. SOL 5ML OS PRN (07:00)
[2017-12-23] MEDS ORDERED: BSS with VANC/TOB/EPI for EYE CASES IR ONE (07:00)
[2017-12-23] MEDS ORDERED: TROPICAMIDE 1% OPHTH SOLN 2ML OS ONE (07:00)
[2017-12-23] MEDS ORDERED: OFLOXACIN 0.3 % (OCUFLOX) OPTH SOL 5ML OS ONE (07:00)
[2017-12-23] MEDS ORDERED: LIDOCAINE 3.5 % 1ML OPHTH TOPICAL GEL OU ONE (07:00)
[2017-12-23] MEDS ORDERED: ALBUTEROL SULFATE 2.5 MG/0.5 ML INH NEB SOLN As Ordered ONE (08:51)
[2017-12-23] MEDS ORDERED: ALBUTEROL SULFATE 2.5 MG/0.5 ML INH NEB SOLN INH ONE (09:00)
[2017-12-23] MEDS ORDERED: FLUMAZENIL 0.5 MG/5 ML VIAL As Ordered ONE (09:10)
[2017-12-23] MEDS ORDERED: NALOXONE INJ 0.4 MG/1 ML VIAL (J2310) As Ordered ONE (09:10)
[2017-12-23] MEDS ORDERED: LABETALOL HCL 100 MG/20 ML VIAL As Ordered ONE (09:45)
[2017-12-23] MEDS ORDERED: HumaLOG INSULIN (NovoLOG) PER UNIT As Ordered ONE (10:18)
[2017-12-23] MEDS ORDERED: ONDANSETRON 4MG/2ML VIAL (J2405) IV PRN (10:30)
[2017-12-23] MEDS ORDERED: TRIMETHOBENZAMIDE 300 MG CAP PO PRN (10:30)
[2017-12-23] MEDS ORDERED: hydrALAZINE INJ 20 MG/ML VIAL As Ordered ONE ×2 (10:32→10:44)
[2017-12-23] MEDS ORDERED: PROPOFOL 200 MG/20 ML VIAL As Ordered ONE (10:37)
[2017-12-23] MEDS ORDERED: hydrALAZINE INJ 20 MG/ML VIAL IV SCH (10:45)
[2017-12-23] MEDS ORDERED: HumaLOG INSULIN (NovoLOG) PER UNIT SC ONE (11:15)
[2017-12-23] MEDS ORDERED: oxyCODONE 15 MG CR TAB PO ONE (11:15)
[2017-12-23 11:51] VITALS: BP 195/81
== END 2017-12-23 12:17 | disposition home or self-care (01) ==
LOC: M SDC 06:54
PROVIDERS: ATTEND Ophthalmology
DX: H25.22 Age-related cataract, morgagnian type, left eye (principal); E11.9 Type 2 diabetes mellitus without complications; E78.5 Hyperlipidemia, unspecified; Z79.82 Long term (current) use of aspirin; F17.210 Nicotine dependence, cigarettes, uncomplicated; D64.9 Anemia, unspecified; Z79.899 Other long term (current) drug therapy
CPT/HCPCS: 66984; 67505; J2250; J2280; J2310; J3010; J3300; V2632

== ENCOUNTER → 2018-01-08 | Outpatient (CLI) | payer OTHER | LOC: M SMT 13:30 | DX: J43.1 Panlobular emphysema (principal); J96.11 Chronic respiratory failure with hypoxia | CPT/HCPCS: 71046 ==

== ENCOUNTER 2018-02-18 09:05 | Inpatient (IN) | payer MEDICARE, OTHER ==
[~2018-02-18] VITALS: Ht 160 cm; Wt 51.6 kg
[~2018-02-18 09:05] MED LIST changes: -ACETAMINOPHEN 325 MG TAB PO PRN; -HEALON DUET PRO(HEALON 10MG/ML 0.55ML & HEALON ENDOCOAT 30MG/ML 0.85ML) As Ordered ONE; -LIDOCAINE 1% SDV 5 ML VIAL As Ordered ONE; -MOXIFLOXACIN IN BSS 0.25MG/0.25ML INTRACAMERAL INJ (OR EYE ONLY)(J2280) As Ordered ONE; -POVIDONE-IODINE 5% OPHTH PREP SOL 30ML As Ordered ONE; -TRIAMCINOLONE PRES FR 40 MG/ML 1ML(TRIESENCE)(OR EYE ONLY)(J3300 PER 1MG) As Ordered ONE
[2018-02-18 09:39] LABS: VENOUS BASE EXCESS -0.3 (-2.0-2.0); VENOUS HCO3 21.1 MEQ/L (23.0-27.0); VENOUS PARTIAL PRESSURE CO2 26.4 mmHg (38.0-50.0); VENOUS PARTIAL PRESSURE O2 43.4 mmHg (30.0-50.0); VENOUS STANDARD HCO3 23.8 MEQ/L; VENOUS TOTAL CO2 21.9 MEQ/L (24.0-28.0)
[2018-02-18 09:47] LABS: BASO # 0.1 10^3/uL (0.0-0.2); BASO % 0.5 % (0.0-1.0); EOS % 0.2 % (0.0-3.0); HEMATOCRIT 41.5 % (36.0-47.0); HEMOGLOBIN 13.4 g/dl (12.0-15.5); LYMPH # 1.4 10^3/uL (1.5-4.5); LYMPH % 8.6 % (24.0-44.0); MEAN CORPUSCULAR HEMOGLOBIN 27.9 pg (27.0-33.0); MEAN CORPUSCULAR HGB CONC 32.3 g/dl (32.0-36.5); MEAN CORPUSCULAR VOLUME 86.5 fl (80.0-96.0); MONO # 0.8 10^3/uL (0.0-0.8); MONO % 4.8 % (0.0-5.0); NEUTROPHILS # 14.1 10^3/uL (1.8-7.7); NEUTROPHILS % 85.3 % (36.0-66.0); PLATELET COUNT, AUTOMATED 305 10^3/uL (150-450); WHITE BLOOD COUNT 16.5 10^3/uL (4.0-10.0)
--- NOTE | 2018-02-18 09:47 | REP ---
Portable chest x-ray: Two views. History: Dyspnea and cough. Comparison chest x-ray: January 08, 2018. Findings: EKG monitoring electrodes are seen. Heart is not enlarged. Pleural angles are sharp. Oxygen delivery tubing is seen. There is an area of pleural thickening and adjacent parenchymal opacity in the right lung apex which is improved compared with November 26, 2016 and which is unchanged compared with November 26, 2017. The aorta is calcific and tortuous. Lung ferrell are otherwise clear. Impression: Chronic pleuroparenchymal fibrotic changes right apex, stable from November 26, 2017 and improved from 2017. Otherwise no acute disease. Electronically Signed by Shane Sumner MD 02/18/2018 09:38 A
[2018-02-18 10:19] LABS: ALBUMIN 3.9 GM/DL (3.2-5.2); BILIRUBIN,DIRECT 0.2 MG/DL (0.0-0.2); CALCIUM LEVEL 9.9 MG/DL (8.8-10.2); CREATININE FOR GFR 1.56 MG/DL (0.55-1.30); GLOMERULAR FILTRATION RATE 34.7 (>39); MB/CK RELATIVE INDEX 6.91 (< OR =4); POTASSIUM SERUM 4.9 MEQ/L (3.5-5.1); THYROID STIMULATING HORMONE 1.24 uIU/ML (0.358-3.740); TOTAL PROTEIN 7.6 GM/DL (6.4-8.2); TROPONIN I 0.15 NG/ML (< 0.10)
[2018-02-18] MEDS: NITROGLYCERIN 0.4 MG SUBL TABLET SL PRN ×3 (10:23→10:39)
[2018-02-18] MEDS ORDERED: **hydrALAZINE** 10 MG TAB PO ONE (10:45)
[2018-02-18] MEDS ORDERED: LISINOPRIL 20 MG TAB PO ONE (10:45)
[2018-02-18] MEDS ORDERED: ONDANSETRON 4MG/2ML VIAL (J2405) IV ONE (11:15)
[2018-02-18] MEDS: MORPHINE 4 MG/ML 1ML VIAL/SYRINGE (J2270) IV PRN ×2 (11:18→11:50)
[2018-02-18] MEDS ORDERED: ISOVUE-370 76% 100ML VIAL (Q9967) As Ordered ONE (11:22)
[2018-02-18] MEDS ORDERED: LABETALOL HCL 100 MG/20 ML VIAL IV STA (11:57)
--- NOTE | 2018-02-18 12:35 | REP ---
CT pulmonary angiogram: With IV contrast. History: Shortness of breath. Comparison studies: November 26, 2016. Contrast dose: 75 mL of Isovue [address] technique: Helical scanning is acquired and overlapping 1.5 mm and contiguous 3 mm axial images are reformatted. In addition, maximum intensity projection and multiplanar re-formation images are generated in sagittal and coronal imaging projections. CT pulmonary angiographic findings: There is good opacification of the pulmonary arterial tree and there is no CT evidence of pulmonary embolism. The filling defect previously noted in the right upper lobe segmental pulmonary arterial branches on the November 26, 2016 has resolved. No vessel cutoff or filling defect is seen today. The thoracic aorta is heavily calcified but there is no evidence of aneurysm or dissection. There is a right hilar lymph node measuring 11 mm in short axis dimension. This is actually smaller than it was November 26, 2016. No other adenopathy is seen. No pleural effusion is visible today on either side. There is bibasilar mild linear fibrosis. There is a more extensive area of chronic pleuroparenchymal fibrosis in the right upper lobe laterally and superiorly. This it is improved when compared with the November 26, [address] study. In comparison with the more recent noncontrast chest CT study from January 16, 2017, this area is also seen to be improved showing less peripheral consolidation and fewer air bronchograms. On today's study, there is a ill-defined ground-glass opacity in the right middle lobe which on sagittal reformatted images measures up to 2.8 cm in craniocaudal span. This is felt to be essentially unchanged from the January 16, 2017 study. No new infiltrate is seen. No new pulmonary nodule is appreciated. Impression: Extensive chronic pleuroparenchymal fibrosis right upper lobe, generally improved from January 16, 2017. Ill-defined ground-glass opacity right middle lobe which is unchanged from the January 16, [address] evidence of pulmonary embolus. Atherosclerotic vascular calcification. Right renal atrophy is again noted. Electronically Signed by Shane Sumner MD 02/18/2018 05:44 P
[2018-02-18 13:17] LABS: MB/CK RELATIVE INDEX 7.59 (< OR =4); TROPONIN I 0.14 NG/ML (< 0.10)
--- NOTE | 2018-02-18 13:36 | ECGEPIP ---
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
--- NOTE | 2018-02-18 15:00 | REP ---
CT ABDOMEN AND PELVIS WITHOUT IV CONTRAST: CT abdomen and pelvis was performed without oral or IV contrast. Sagittal and coronal reconstruction images are performed. Patient had CT angiogram of the chest today with intravenous contrast. There is therefore contrast being excreted from the kidneys filling the urinary bladder. Visualized lungs bases demonstrate chronic fibrotic change. Calcified granulomas are seen in the liver and spleen with no gross mass. Adrenals and pancreas are grossly unremarkable. There is right renal atrophy with a lesser degree of parenchymal enhancement compared to the left kidney. There is a cyst in the upper pole of the right kidney measuring 2.3 cm in diameter. There are tiny cysts involving the mid to lower left kidney. There is no hydroureteronephrosis bilaterally. Mild atherosclerotic calcification is seen of the abdominal aorta with no aneurysm. There is an aortobiiliac stent present. No adenopathy is seen. There is no free air or free fluid. No bowel thickening is seen. There is no evidence of appendicitis. No pelvis mass is seen. Patient appears to have a hysterectomy. Urinary bladder demonstrates no gross abnormality or filling defect. There are degenerative changes of the spine. There is mild anterior listhesis of L4 on L5 which appears to be due to posterior facet arthropathy. IMPRESSION: No acute abnormalities detected. No evidence of appendicitis or hydroureteronephrosis. There is right renal atrophy and a right renal cyst is noted. No free air or free fluid. Electronically Signed by Boy Barrios MD 02/18/2018 07:56 P
[2018-02-18] MEDS ORDERED: AMLO5TAB6 PO (15:04)
[2018-02-18] MEDS ORDERED: VITA10002 PO (15:15)
[2018-02-18] MEDS ORDERED: OMEP-221 PO (15:15)
[2018-02-18] MEDS ORDERED: LISI-538 PO (15:15)
[2018-02-18] MEDS ORDERED: VITA-182 PO (15:15)
[2018-02-18] MEDS ORDERED: SERT50TA PO (15:15)
[2018-02-18] MEDS ORDERED: oxyCODONE 15 MG CR TAB PO ONE (15:45)
[2018-02-18] MEDS ORDERED: OXYC15TA76 PO (15:51)
[2018-02-18] MEDS ORDERED: oxyCODONE 5MG TAB PO ONE (16:00)
[2018-02-18] MEDS ORDERED: GLUCOSE 4 GM CHEW TABLET PO PRN (17:00)
[2018-02-18] MEDS ORDERED: DEXTROSE 50% 50 ML SYRINGE IV PRN (17:00)
[2018-02-18] MEDS ORDERED: GLUCAGON FOR INJ 1 MG VIAL (J1610) SC PRN (17:00)
[2018-02-18] MEDS ORDERED: IPRATROPIUM 0.5MG/ALBUTEROL 2.5MG INH SOL UD 3ML (DUONEB)(J7620) NEB PRN (17:30)
[2018-02-18] MEDS ORDERED: HEPARIN SOD (PORCINE) 5000 UNITS/ML VIAL SC ONE (18:00)
[2018-02-18] MEDS ORDERED: NS 1,000 ML IV SCH (18:30)
[2018-02-18] MEDS: HumaLOG INSULIN (NovoLOG) PER UNIT SC SCH (18:34)
--- NOTE | 2018-02-18 18:49 | HPE ---
DATE OF ADMISSION: 02/18/2018 CHIEF COMPLAINT: Shortness of breath. HISTORY OF PRESENT ILLNESS: This is a 72-year-old female with past medical history of chronic obstructive pulmonary disease (COPD) on three liters home oxygen, hypertension, hyperlipidemia, history of active tobacco use, history of severe peripheral arterial disease, status post angioplasty and stenting with Dr. Juaerz who presents with a chief complaint of shortness of breath. The patient is uncooperative and angry and somewhat hesitant to participate in the history. She reports that she has been feeling shortness of breath but had trouble quantifying how long. She says she is actively smoking but her last cigarette was a couple of days ago. She gets particularly short of breath with exertion. She thought she had taken her blood pressure medications but when she looked in her medication box, she saw today's and yesterday's medications were still there. She denies any chest pain. In the emergency room, the patient's blood pressure was she had a systolic of 230s to 240s and the patient had a mild troponin elevation and therefore was being admitted for hypertensive urgency as well as further evaluation for her shortness of breath. She did receive a dose of labetalol, lisinopril, and hydralazine in the emergency room (ER) with improvement in her blood pressures to the systolic of 160s. She is being admitted for further monitoring of her blood pressure and her shortness of breath. REVIEW OF SYSTEMS: The patient was unwilling to participate in a review of systems evaluation. PAST MEDICAL HISTORY: As noted above in the history of present illness (HPI). PAST SURGICAL HISTORY: The patient has a history of right lower extremity angiogram with angioplasty and stenting. She has a history of bronchoscopy with biopsy and bronchioalveolar lavage. She has a history of hysterectomy and a transurethral bladder tumor resection. MEDICATIONS: The patient's home medications are: - The patient is on albuterol nebulizers as needed. - She is on Ellipta inhaler daily. - She is on hydrocodone/bitartrate one tablet by mouth every six hours as needed for pain. She is on: - alprazolam 0.5 mg every six hours as needed for anxiety - amlodipine 5 mg daily - aspirin 81 mg daily - atorvastatin 20 mg at bedtime - vitamin D 1000 units one capsule daily - Plavix 75 mg daily - vitamin B12 1000 mcg daily - gabapentin 600 mg three times a day as needed for muscle spasm - hydralazine 10 mg by mouth daily - Lantus 40 units subcutaneous daily - Synthroid 75 mcg daily - lisinopril 20 mg daily - Prilosec 40 mg daily - prednisone 10 mg daily - sertraline 50 mg daily ALLERGIES: The patient is allergic to ACETAMINOPHEN, BACITRACIN, CORTISONE, FLUOXETINE, NEOMYCIN, POLYMYXIN, RED DYE, SULFA ANTIBIOTICS, and TRAMADOL. SOCIAL HISTORY: The patient lives along and has a neighbor who helps her. She is . She has one son who is local and one son who lives in [place]. Another son of colon cancer. She has been a one pack per day smoker since she was 11 years old. FAMILY HISTORY: Her son of colon cancer. PHYSICAL EXAMINATION: On examination in the emergency room, blood pressure is currently improved to 186/87, pulse of 81, saturating 98% on two liters. GENERAL: She is in no acute distress and is an elderly female. HEENT: Oropharynx clear. NECK: Supple. CARDIOVASCULAR: Regular rate and rhythm. No murmurs, rubs or gallops. LUNGS: Clear to auscultation bilaterally. ABDOMEN: Soft, nontender, nondistended. Positive bowel sounds. EXTREMITIES: No clubbing, cyanosis, or edema. SKIN: Her right great toenail is no longer present and she has some mild erythema and blood at the site. NEUROLOGIC: She is alert and oriented times three, follows simple commands. No focal neurological deficits. PSYCHIATRIC: Mood is stable. LABORATORY DATA: Reveal a white count of 16.5, hemoglobin of 13, platelets of 305. Chemistry shows a sodium of 133, creatinine of 1.56 which is slightly worse than her baseline. Her last creatinine was 1.22 in November 2017. Her troponin is elevated to 0.14 and the one prior to that was 0.15. IMAGING STUDIES: She had a CT angiogram of the chest to rule out PE which shows extensive chronic pleural parenchymal fibrosis, right upper lobe, generally improved from January 2017, ill-defined ground-glass opacity, right middle lobe which is unchanged from prior. No evidence of PE. She had a CT of the abdomen and pelvis as well that shows no acute abnormalities. No evidence of appendicitis. ASSESSMENT AND PLAN: This is a 72-year-old female with past medical history of chronic obstructive pulmonary disease (COPD) and chronic hypoxemic respiratory failure on chronic three liters of oxygen, hypertension, hyperlipidemia, diabetes, peripheral arterial disease who presents with hypertensive urgency secondary to medication noncompliance as well as shortness of breath. 1. Hypertensive urgency/emergency. The patient came in with systolic pressures up to 230s to 240s which have been improved after the medication received in the emergency room (ER). This included hydralazine, lisinopril, and labetalol 20 mg IV stat. For now, I am going to continue her home medications since it seems the reason for this is medication noncompliance. Her troponins are stable at around 0.14. I will get another troponin. We will continue to monitor her. 2. Shortness of breath. Perhaps, the patient has a mild COPD exacerbation although her lungs at this time did not have any evidence of overt wheezing. Her CT, pulmonary embolism (PE) is negative for any PE. I am going to place her on nebulizers [id number] and as needed and go ahead and give her a dose of prednisone 60 mg daily and she can receive a five-day burst of that. She is on chronic steroids with prednisone 10 mg daily. Since she does have a mild leukocytosis, I will go ahead and treat her COPD exacerbation with azithromycin as well. I have encouraged her to please quit smoking as it is likely not helping her current pulmonary function. 3. Mild acute kidney injury (SU). The patient has a creatinine of 1.56 which is up from her baseline last in November 2017 which was 1.2. I will go ahead and give her one liter of fluid to be given throughout the course of the night. We will repeat a basic metabolic panel (BMP) tomorrow. 4. The patient has a right great toe erythema. She follows with Dr. Juarez. She has not followed with Dr. Juarez in a few months. She has missed a couple of her appointments. Therefore, I will go ahead and check a right foot x-ray and erythrocyte sedimentation rate (ESR), C-reactive protein (CRP). Primary team to consider consulting Dr. Juarez or a hazardous materials tanker driver to further evaluate her right foot and whether additional antibiotics are needed. 5. As far as her diabetes, I am continuing her home Lantus and placing her on a sliding scale. 6. History of hypothyroidism. Continue home Synthroid. 7. History of peripheral arterial disease. Continue her home Plavix. 8. Deep vein thrombosis (DVT) prophylaxis. She is on subcutaneous heparin. The patient is a full code.
[2018-02-18 18:57] VITALS: BP 134/64
[2018-02-18] MEDS: ANEXSIA, NORCO 7.5MG/325MG TABLET(HYDROCODONE/APAP) PO PRN (19:59)
[2018-02-18] MEDS: ATORVASTATIN 20 MG TAB PO SCH (20:00)
[2018-02-18] MEDS: IPRATROPIUM 0.5MG/ALBUTEROL 2.5MG INH SOL UD 3ML (DUONEB)(J7620) NEB SCH (20:00)
[2018-02-18] MEDS: AZITHROMYCIN INJ 500 MG, VIAL MATE ADAPTER 1 EACH in D5W 250 ML IV SCH (20:02)
[2018-02-18] MEDS: ALPRAZolam 0.5 MG TAB PO PRN (21:37)
[2018-02-18 22:00] VITALS: BP 115/65
[2018-02-19] VITALS (7 sets, daily range): BP systolic 140–202; BP diastolic 65–82
--- NOTE | 2018-02-19 01:50 | REP ---
Clinical: Right first toe swelling and erythema. Technique: Portable AP, lateral, bilateral oblique views of the right. Findings: Generalized osteopenia and arthritic degenerative changes are appreciated. Erosive/blunted appearance to the second and fifth digits and distal phalanges are appreciated and of uncertain chronicity. First toe demonstrates moderate degenerative changes at the metatarsophalangeal joint including subchondral sclerosis with joint space narrowing and mild hallux deformity. No subcutaneous emphysema. No obvious acute fracture to the first toe. Impression: 1. Generalized osteopenia and degenerative changes along with a irregularities involving the distal aspect of the second and fifth toes of uncertain chronicity. 2. First toe demonstrates moderate focal degenerative changes at the metatarsophalangeal joint without evidence for underlying injury, significant swelling or subcutaneous emphysema. Electronically Signed by Danis rGeenfield MD 02/19/2018 01:41 A
[2018-02-19] MEDS: IPRATROPIUM 0.5MG/ALBUTEROL 2.5MG INH SOL UD 3ML (DUONEB)(J7620) NEB SCH ×4 (02:00→21:06)
--- NOTE | 2018-02-19 02:56 | ECGEPIP ---
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
[2018-02-19 05:42] LABS: HEMATOCRIT 32.9 % (36.0-47.0); MEAN CORPUSCULAR HEMOGLOBIN 28.1 pg (27.0-33.0); MEAN CORPUSCULAR HGB CONC 31.9 g/dl (32.0-36.5); RED BLOOD COUNT 3.74 10^6/uL (4.00-5.40); WHITE BLOOD COUNT 9.2 10^3/uL (4.0-10.0)
[2018-02-19 05:53] LABS: HEMOGLOBIN 10.5 g/dl (12.0-15.5); PLATELET COUNT, AUTOMATED 145 10^3/uL (150-450)
[2018-02-19 06:10] LABS: ERYTHROCYTE SEDIMENTATION RATE 21 mm/hr (0-30)
[2018-02-19 06:11] LABS: C REACTIVE PROTEIN QUANTITATIV 0.57 MG/DL (0.00-0.30); CALCIUM LEVEL 8.6 MG/DL (8.8-10.2); CREATININE FOR GFR 1.44 MG/DL (0.55-1.30); GLOMERULAR FILTRATION RATE 38.1 (>39); POTASSIUM SERUM 4.2 MEQ/L (3.5-5.1)
[2018-02-19] MEDS ORDERED: **hydrALAZINE** 10 MG TAB As Ordered ONE (06:28)
[2018-02-19] MEDS ORDERED: amLODIPine 5 MG TAB As Ordered ONE (06:29)
[2018-02-19] MEDS: amLODIPine 5 MG TAB PO SCH (06:31)
[2018-02-19] MEDS: **hydrALAZINE** 10 MG TAB PO SCH (06:31)
[2018-02-19] MEDS: LEVOTHYROXINE 75MCG TABLET (0.075MG) PO SCH (06:31)
[2018-02-19] MEDS: ANEXSIA, NORCO 7.5MG/325MG TABLET(HYDROCODONE/APAP) PO PRN ×3 (06:32→22:36)
[2018-02-19] MEDS: HumaLOG INSULIN (NovoLOG) PER UNIT SC SCH ×3 (07:30→17:18)
[2018-02-19] MEDS: CLOPIDOGREL 75 MG TAB PO SCH (09:00)
[2018-02-19] MEDS: HEPARIN SOD (PORCINE) 5000 UNITS/ML VIAL SC SCH ×2 (09:00→20:24)
[2018-02-19] MEDS: VITAMIN D 1,000 INTERNATIONAL UNITS TABLET PO SCH (09:00)
[2018-02-19] MEDS: LEVEMIR (INSULIN DETEMIR) 1 UNITS/0.01ML SC SCH (09:00)
[2018-02-19] MEDS: OMEPRAZOLE 20 MG CAP PO SCH (09:00)
[2018-02-19] MEDS ORDERED: predniSONE 10 MG TAB PO SCH (09:00)
[2018-02-19] MEDS: CYANOCOBALAMIN 500 MCG TAB PO SCH (09:00)
[2018-02-19] MEDS: ASPIRIN 81 MG CHEW TABLET PO SCH (09:47)
[2018-02-19] MEDS: SERTRALINE HCL 50 MG TAB PO SCH (09:48)
[2018-02-19] MEDS: LISINOPRIL 20 MG TAB PO SCH (09:48)
[2018-02-19] MEDS: predniSONE 20 MG TAB PO SCH (09:48)
--- NOTE | 2018-02-19 10:32 | IPNPDOC ---
Text Note Date of Service The patient was seen on 02/19/18. NOTE Subjective: Patient seen and examined at bedside. Patient states she feels terrible but does not elaborate with any specific details; suggests I review her chart for any information I need. She does deny chest pain, but does not answer other questions. Objective: PHYSICAL EXAMINATION: GENERAL: NAD, lying comfortably in bed, angry HEENT: NC/AT, EOMI NECK: Supple. CARDIOVASCULAR: +S1S2, RRR LUNGS: b/l wheezes ABDOMEN: Soft, nontender, nondistended. Positive bowel sounds. EXTREMITIES: No clubbing, cyanosis, or edema, right hallux cuticle damage ASSESSMENT AND PLAN: This is a 72-year-old female with past medical history of COPD, chronic hypoxemic respiratory failure on chronic three liters of oxygen, hypertension, hyperlipidemia, diabetes, peripheral arterial disease s/p angioplasty who presents with hypertensive urgency secondary to medication noncompliance as well as shortness of breath. #Hypertensive urgency - resolved - continue with home meds - follow clinically #troponinemia - likely secondary to increased demand, complicated with SU - repeat pending - repeat ECG pending #elevated BNP - no overt signs/symptoms heart failure - echo pending - possibly secondary to hypertensive urgency complicated with SU - trending down without diuresis - will repeat tomorrow #SOB - possibly COPD exacerbation - CT angio negative for PE - nebs, azithromycin, steroids, supplemental O2 #SU - improving - continue to follow # right hallux erythema - non-compliant with follow up with vascular surgery - right foot x-ray noted - CRP slightly elevated, ESR WNL #diabetes - basal insulin as per home regimen + ISS - modified diet #hypothyroidism - continue home Synthroid. #PAD - home plavix #thrombocytopenia - etiology not clear - did not receive heparin (refused) - continue to follow clinically #DVT prophylaxis - subcutaneous heparin. VS,Fishbone, I+O VS, Fishbone, I+O Laboratory Tests 02/19/18 05:28 Red Blood Count 3.74 L, Mean Corpuscular Volume 88.0, Mean Corpuscular Hemoglobin 28.1, Mean Corpuscular Hemoglobin Concent 31.9 L, Red Cell Distribution Width 14.8 H, Calcium Level 8.6 L Vital Signs Date Time Temp Pulse Resp B/P (MAP) Pulse Ox O2 Delivery O2 Flow Rate FiO2 02/19/18 09:48 148/65 02/19/18 07:02 16 Nasal Cannula 2.0 02/19/18 06:31 78 02/19/18 06:00 98.5 96 I&O- Last 24 Hours up to 6 AM 02/19/18 06:00 Intake Total 705 ml Output Total 0 ml Balance 705 ml CHAYO WOODS MD Feb 19, 2018 10:32
[2018-02-19] MEDS: oxyCODONE 5MG TAB PO PRN ×2 (10:47→17:19)
[2018-02-19 12:07] LABS: MB/CK RELATIVE INDEX 7.71 (< OR =4); TROPONIN I 0.14 NG/ML (< 0.10)
[2018-02-19] MEDS: ATORVASTATIN 20 MG TAB PO SCH (20:23)
[2018-02-19] MEDS: AZITHROMYCIN INJ 500 MG, VIAL MATE ADAPTER 1 EACH in D5W 250 ML IV SCH (20:24)
--- NOTE | 2018-02-19 21:15 | ECHO ---
DATE OF PROCEDURE: 02/19/2018 REFERRING PHYSICIAN: Dr. Giacomo Sotelo INDICATION: Dyspnea. HEIGHT: 160 cm WEIGHT: 51.6 kg 2D MEASUREMENTS: Aortic root: 3.0 cm Left atrium: 3.3 cm Ventricular septum: 1.66 cm Posterior wall: 1.49 cm Left ventricle diastole: 3.8 cm Aortic annulus: 1.5 cm Inferior vena cava: 1.6 cm (with greater than 50% respiratory variation) DOPPLER MEASUREMENTS: Aortic valve velocity: 145 cm/s LVOT velocity: 87.9 cm/s LVOT VTI: 13.3 cm Mitral E velocity: 101 cm/s Mitral A velocity: 125 cm/s Mitral deceleration time: 246 ms MITRAL ANNULAR TISSUE DOPPLER: E prime septal: 3.8 cm/s E prime lateral: 4.0 cm/s DESCRIPTION: Rhythm was sinus. Image quality was fair. No pericardial effusion. This was a 2D, M-mode, color flow Doppler and pulse wave Doppler examination and included mitral annular tissue Doppler. CONCLUSIONS: 1. Moderately-severe concentric left ventricle hypertrophy. Normal regional left ventricular (LV) wall motion and wall thickening. Normal LV systolic function. Left ventricular ejection fraction (LVEF) 60% by visual estimate. Grade 1 LV diastolic dysfunction (impaired relaxation filling pattern). 2. Moderate aortic valve sclerosis of a 3-cusp aortic valve. No aortic stenosis or regurgitation. 3. Mild mitral annular calcification. No mitral regurgitation. 4. Normal right ventricle size and systolic function. Central venous pressure estimated to be normal at 5-10 mmHg. 5. No pericardial effusion.
[2018-02-20] VITALS (7 sets, daily range): BP systolic 143–202; BP diastolic 70–89
[2018-02-20] MEDS: IPRATROPIUM 0.5MG/ALBUTEROL 2.5MG INH SOL UD 3ML (DUONEB)(J7620) NEB SCH ×4 (02:00→20:00)
[2018-02-20] MEDS: ALPRAZolam 0.5 MG TAB PO PRN (03:10)
[2018-02-20] MEDS: LEVOTHYROXINE 75MCG TABLET (0.075MG) PO SCH (05:38)
[2018-02-20] MEDS: amLODIPine 5 MG TAB PO SCH (06:17)
[2018-02-20] MEDS: **hydrALAZINE** 10 MG TAB PO SCH (06:18)
[2018-02-20 06:19] LABS: BASO % 0.1 % (0.0-1.0); HEMATOCRIT 29.4 % (36.0-47.0); HEMOGLOBIN 9.4 g/dl (12.0-15.5); LYMPH # 0.5 10^3/uL (1.5-4.5); LYMPH % 6.2 % (24.0-44.0); MEAN CORPUSCULAR HEMOGLOBIN 28.1 pg (27.0-33.0); MEAN CORPUSCULAR VOLUME 87.8 fl (80.0-96.0); MONO # 0.6 10^3/uL (0.0-0.8); MONO % 7.2 % (0.0-5.0); PLATELET COUNT, AUTOMATED 119 10^3/uL (150-450); RED BLOOD COUNT 3.35 10^6/uL (4.00-5.40); WHITE BLOOD COUNT 8.2 10^3/uL (4.0-10.0)
[2018-02-20 06:43] LABS: BILIRUBIN,TOTAL 0.4 MG/DL (0.2-1.0); CALCIUM LEVEL 9.2 MG/DL (8.8-10.2); CREATININE FOR GFR 1.49 MG/DL (0.55-1.30); GLOMERULAR FILTRATION RATE 36.6 (>39); POTASSIUM SERUM 4.4 MEQ/L (3.5-5.1); TOTAL PROTEIN 6.1 GM/DL (6.4-8.2)
[2018-02-20] MEDS: CLOPIDOGREL 75 MG TAB PO SCH (09:00)
[2018-02-20] MEDS: OMEPRAZOLE 20 MG CAP PO SCH (09:00)
[2018-02-20] MEDS: CYANOCOBALAMIN 500 MCG TAB PO SCH (09:00)
[2018-02-20] MEDS: VITAMIN D 1,000 INTERNATIONAL UNITS TABLET PO SCH (09:00)
[2018-02-20] MEDS: HEPARIN SOD (PORCINE) 5000 UNITS/ML VIAL SC SCH ×2 (09:00→20:57)
--- NOTE | 2018-02-20 09:18 | REP ---
Urinary tract sonography with renal artery Doppler flow assessment: History: Rule out renal artery stenosis. Morphologic findings: Scan quality is inhibited significantly by patient pain and inability to breath hold. Scanning at the level of the urinary bladder shows that the urinary bladder is largely empty at the time of scanning. Renal cortical echogenicity pattern is increased consistent with chronic medical renal disease, particularly on the right. Right kidney is atrophic measuring 8.9 x 3.5 x 3.4 cm. No hydronephrosis or mass is seen. There is a 2.0 x 1.1 x 1.6 cm cyst in the right mid kidney. The left kidney measures 12.6 x 6.7 x 4.9 cm. No hydronephrosis, mass or cyst is seen. Renal artery Doppler study:The peak systolic flow velocity in the abdominal aorta at the level of the main renal arteries is recorded at 82.8 cm/s. Peak systolic flow velocity in the right main renal artery was recorded at 27 cm/s and that in the left distal main renal artery at 98 cm/s. The proximal most renal artery segments could not be assessed with Doppler. Renal to aortic flow velocity ratios are therefore not elevated at 0.3 on the right and 1.2 on the left. Resistive indices and acceleration times could only be measured in the mid pole of each kidney intralobar arteries. These values are normal. Impression: Quite limited exam. No Doppler evidence to suggest renal artery stenosis, but visualization was incomplete. Electronically Signed by Shane Sumner MD 02/20/2018 10:21 A
[2018-02-20] MEDS: SERTRALINE HCL 50 MG TAB PO SCH (09:21)
[2018-02-20] MEDS: predniSONE 20 MG TAB PO SCH (09:21)
[2018-02-20] MEDS: HumaLOG INSULIN (NovoLOG) PER UNIT SC SCH ×3 (09:22→17:27)
[2018-02-20] MEDS: ASPIRIN 81 MG CHEW TABLET PO SCH (09:22)
[2018-02-20] MEDS: LEVEMIR (INSULIN DETEMIR) 1 UNITS/0.01ML SC SCH (09:23)
[2018-02-20] MEDS: oxyCODONE 5MG TAB PO PRN ×2 (09:24→17:28)
[2018-02-20] MEDS: LISINOPRIL 20 MG TAB PO SCH (09:27)
--- NOTE | 2018-02-20 13:58 | IPNPDOC ---
Subjective Date Seen The patient was seen on 02/20/18. Subjective Chief Complaint/HPI Patient seen and examined at the bedside. States that she still feels shortness of breath this morning. Patient counseled at length about the need for her to abstain from tobacco use. The patient otherwise denies any acute overnight events. Objective Physical Examination General Exam: Positive: Alert, Cooperative, No Acute Distress ENT Exam: Positive: Atraumatic, Mucous membr. moist/pink Neck Exam: Negative: JVD Chest Exam: Positive: Diminished; Negative: Rales, Rhonchi Heart Exam: Positive: Rate Normal, Normal S1, Normal S2 Abdomen Exam: Positive: Soft; Negative: Tenderness Extremity Exam: Negative: Tenderness, Swelling Psych Exam: Positive: Oriented x 3 Assessment /Plan Plan/VTE VTE Prophylaxis Ordered?: Yes Plan Hypertensive Urgency/Emergency The patient's blood pressure still remains elevated, and is labile Adjustments have been made to her B/P Meds Renal Artery U/S ordered to r/o CESAR--negative for stenosis, albeit the study was limited We will cont to adjust the patient's medication dosing, as she states that her blood pressure has, "been uncontrolled for years." We will continue to monitor the patient Shortness of breath 2/2 COPD exacerbation CTA Chest was negative for any PE. Cont azithromycin, serial nebs, and Prednisone Extensively discussed the need for the patient to abstain from further tobacco use We'll continue to monitor the patient Chronic Kidney Disease Stage III The patient's Serum Cr has ranged from 1.1-1.6 over this past year Serum Cr 1.49 this AM The patient does not appear dehydrated No Hydroureteronephrosis noted on CT Abd/Pel, Right Atrophic Kidney noted Peripheral Artery Disease s/p RLE angioplasty with stenting Dr. Juarez in the past Cont ASA, Plavix, Statin F/U as outpatient Diabetes Mellitus Insulin sliding scale, Levemir, carb consistent diet History of hypothyroidism Continue home Synthroid. Anxiety/depression Sertraline, Xanax when necessary Peripheral neuropathy Continue gabapentin Dyslipidemia Continue statin Deep vein thrombosis (DVT) prophylaxis Heparin SC Dispo--Pending control of her B/P, PT clearance. VS, I&O, 24H, Fishbone Vital Signs/I&O Vital Signs Date Time Temp Pulse Resp B/P (MAP) Pulse Ox O2 Delivery O2 Flow Rate FiO2 02/20/18 10:00 98.5 87 17 178/88 (118) 98 Nasal Cannula 2.0 I&O- Last 24 Hours up to 6 AM 02/20/18 05:59 Intake Total 1050 ml Output Total 1100 ml Balance -50 ml Laboratory Data 24H LABS Laboratory Tests 2 02/19/18 16:25: Bedside Glucose (Misc Panel) 198H 02/19/18 19:48: Bedside Glucose (Misc Panel) 305H 02/20/18 05:25: Immature Granulocyte % (Auto) 0.5, White Blood Count 8.2, Red Blood Count 3.35L, Hemoglobin 9.4L, Hematocrit 29.4L, Mean Corpuscular Volume 87.8, Mean Corpuscular Hemoglobin 28.1, Mean Corpuscular Hemoglobin Concent 32.0, Red Cell Distribution Width 14.6H, Platelet Count 119L, Neutrophils (%) (Auto) 86.0H, Lymphocytes (%) (Auto) 6.2L, Monocytes (%) (Auto) 7.2H, Eosinophils (%) (Auto) 0.0, Basophils (%) (Auto) 0.1, Neutrophils # (Auto) 7.0, Lymphocytes # (Auto) 0.5L, Monocytes # (Auto) 0.6, Eosinophils # (Auto) 0.0, Basophils # (Auto) 0.0, Nucleated Red Blood Cells % (auto) 0.0, Anion Gap 8, Glomerular Filtration Rate 36.6L, Blood Urea Nitrogen 33H, Creatinine 1.49H, Sodium Level 135L, Potassium Level 4.4, Chloride Level 101, Carbon Dioxide Level 26, Calcium Level 9.2, Aspartate Amino Transf (AST/SGOT) 37, Alanine Aminotransferase (ALT/SGPT) 28, Alkaline Phosphatase 76, Total Bilirubin 0.4#, Total Protein 6.1L, Albumin 3 .0#L, Albumin/Globulin Ratio 0.97L 02/20/18 11:34: Bedside Glucose (Misc Panel) 57L 02/20/18 12:14: Bedside Glucose (Misc Panel) 117H CBC/BMP Laboratory Tests 02/20/18 05:25 Red Blood Count 3.35 L, Mean Corpuscular Volume 87.8, Mean Corpuscular Hemoglobin 28.1, Mean Corpuscular Hemoglobin Concent 32.0, Red Cell Distribution Width 14.6 H, Neutrophils (%) (Auto) 86.0 H, Lymphocytes (%) (Auto) 6.2 L, Monocytes (%) (Auto) 7.2 H, Eosinophils (%) (Auto) 0.0, Basophils (%) (Auto) 0.1, Neutrophils # (Auto) 7.0, Lymphocytes # (Auto) 0.5 L, Monocytes # (Auto) 0.6, Eosinophils # (Auto) 0.0, Basophils # (Auto) 0.0, Calcium Level 9.2, Aspartate Amino Transf (AST/SGOT) 37, Alanine Aminotransferase (ALT/SGPT) 28, Alkaline Phosphatase 76, Total Bilirubin 0.4 #, Total Protein 6.1 L, Albumin 3.0 #L Microbiology Microbiology 02/18/18 Blood Culture - Preliminary, Resulted No Growth after 48 hours. All Specime... 02/18/18 Blood Culture - Preliminary, Resulted No Growth after 48 hours. All Specime... 02/18/18 Respiratory Virus Panel (PCR) ([facility]) - Final, Complete LEONORA NICOLE MD Feb 20, 2018 13:58
[2018-02-20] MEDS: **hydrALAZINE HCL** 25 MG TAB PO SCH ×2 (14:21→20:57)
[2018-02-20] MEDS: ANEXSIA, NORCO 7.5MG/325MG TABLET(HYDROCODONE/APAP) PO PRN ×2 (14:23→23:21)
[2018-02-20] MEDS: AZITHROMYCIN INJ 500 MG, VIAL MATE ADAPTER 1 EACH in D5W 250 ML IV SCH (19:24)
[2018-02-20] MEDS: ATORVASTATIN 20 MG TAB PO SCH (20:56)
--- NOTE | 2018-02-20 21:51 | ECGEPIP ---
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 Electronically Signed On 02-20-2018 21:50:55 EST by Clinton Irvin
[2018-02-21 02:00] VITALS: BP 153/79
[2018-02-21] MEDS: IPRATROPIUM 0.5MG/ALBUTEROL 2.5MG INH SOL UD 3ML (DUONEB)(J7620) NEB SCH ×4 (02:00→19:09)
[2018-02-21] MEDS: **hydrALAZINE HCL** 25 MG TAB PO SCH (05:50)
[2018-02-21] MEDS: LEVOTHYROXINE 75MCG TABLET (0.075MG) PO SCH (05:50)
[2018-02-21 06:00] VITALS: BP 184/82
[2018-02-21] MEDS: HumaLOG INSULIN (NovoLOG) PER UNIT SC SCH ×3 (07:45→16:40)
[2018-02-21] MEDS: HEPARIN SOD (PORCINE) 5000 UNITS/ML VIAL SC SCH ×2 (08:59→21:00)
[2018-02-21 09:00] LABS: HEMATOCRIT 35.7 % (36.0-47.0); HEMOGLOBIN 11.3 g/dl (12.0-15.5); MEAN CORPUSCULAR HGB CONC 31.7 g/dl (32.0-36.5); MEAN CORPUSCULAR VOLUME 88.4 fl (80.0-96.0); PLATELET COUNT, AUTOMATED 188 10^3/uL (150-450); RED BLOOD COUNT 4.04 10^6/uL (4.00-5.40); WHITE BLOOD COUNT 11.3 10^3/uL (4.0-10.0)
[2018-02-21] MEDS: predniSONE 20 MG TAB PO SCH (09:00)
[2018-02-21] MEDS: SERTRALINE HCL 50 MG TAB PO SCH (09:00)
[2018-02-21] MEDS: OMEPRAZOLE 20 MG CAP PO SCH (09:00)
[2018-02-21] MEDS: amLODIPine 10 MG TAB PO SCH (09:00)
[2018-02-21] MEDS: CLOPIDOGREL 75 MG TAB PO SCH (09:00)
[2018-02-21] MEDS: ASPIRIN 81 MG CHEW TABLET PO SCH (09:00)
[2018-02-21] MEDS: CYANOCOBALAMIN 500 MCG TAB PO SCH ×2 (09:01→09:16)
[2018-02-21] MEDS: VITAMIN D 1,000 INTERNATIONAL UNITS TABLET PO SCH (09:01)
[2018-02-21] MEDS: LISINOPRIL 20 MG TAB PO SCH (09:01)
[2018-02-21] MEDS: LEVEMIR (INSULIN DETEMIR) 1 UNITS/0.01ML SC SCH (09:01)
[2018-02-21 09:02] LABS: CALCIUM LEVEL 9.7 MG/DL (8.8-10.2); CREATININE FOR GFR 1.32 MG/DL (0.55-1.30); GLOMERULAR FILTRATION RATE 42.1 (>39)
[2018-02-21] MEDS: oxyCODONE 5MG TAB PO PRN ×2 (09:08→21:21)
[2018-02-21 10:00] VITALS: BP 145/82
[2018-02-21] MEDS: ANEXSIA, NORCO 7.5MG/325MG TABLET(HYDROCODONE/APAP) PO PRN ×2 (11:42→17:52)
--- NOTE | 2018-02-21 11:48 | IPNPDOC ---
Subjective Date Seen The patient was seen on 02/21/18. Subjective Chief Complaint/HPI Patient seen and examined at the bedside. Continues to complain of right-sided chest/upper back pain which she attributes to her underlying history of COPD. Patient counseled at length to abstain from tobacco abuse. Otherwise no acute events noted overnight. Objective Physical Examination General Exam: Positive: Alert, Cooperative, No Acute Distress ENT Exam: Positive: Atraumatic, Mucous membr. moist/pink Neck Exam: Negative: JVD Chest Exam: Positive: Diminished; Negative: Rales, Rhonchi Heart Exam: Positive: Rate Normal, Normal S1, Normal S2 Abdomen Exam: Positive: Soft; Negative: Tenderness Extremity Exam: Negative: Tenderness, Swelling Psych Exam: Positive: Oriented x 3 Assessment /Plan Plan/VTE VTE Prophylaxis Ordered?: Yes Plan Hypertensive Urgency/Emergency The patient's blood pressure is getting better controlled with adjustment of her medications. Renal Artery U/S ordered to r/o CESAR--negative for stenosis, albeit the study was limited We will cont to adjust the patient's medication dosing, as she states that her blood pressure has, "been uncontrolled for years." We will continue to monitor the patient Shortness of breath 2/2 COPD exacerbation CTA Chest was negative for any PE. Cont azithromycin, serial nebs, and Prednisone Extensively discussed the need for the patient to abstain from further tobacco use We'll continue to monitor the patient Chronic Kidney Disease Stage III The patient's Serum Cr has ranged from 1.1-1.6 over this past year Serum Cr 1.3 this AM The patient does not appear dehydrated No Hydroureteronephrosis noted on CT Abd/Pel, Right Atrophic Kidney noted Peripheral Artery Disease s/p RLE angioplasty with stenting by Dr. Juarez in the past Cont ASA, Plavix, Statin F/U as outpatient Diabetes Mellitus Insulin sliding scale, Levemir, carb consistent diet History of hypothyroidism Continue home Synthroid. Anxiety/depression Sertraline, Xanax when necessary Peripheral neuropathy Continue gabapentin Dyslipidemia Continue statin Deep vein thrombosis (DVT) prophylaxis Heparin SC Dispo--Pending control of her B/P, PT clearance. VS, I&O, 24H, Fishbone Vital Signs/I&O Vital Signs Date Time Temp Pulse Resp B/P (MAP) Pulse Ox O2 Delivery O2 Flow Rate FiO2 02/21/18 10:00 98.3 88 17 145/82 (103) 95 Room Air 02/20/18 18:00 2.0 I&O- Last 24 Hours up to 6 AM 02/21/18 06:00 Intake Total 625 ml Output Total 1200 ml Balance -575 ml Laboratory Data 24H LABS Laboratory Tests 2 02/20/18 12:14: Bedside Glucose (Misc Panel) 117H 02/20/18 16:31: Bedside Glucose (Misc Panel) 267H 02/20/18 20:59: Bedside Glucose (Misc Panel) 140H 02/21/18 06:15: Bedside Glucose (Misc Panel) 22*L 02/21/18 06:43: Nucleated Red Blood Cells % (auto) 0.0, Bedside Glucose Confirm (Misc) 71, Anion Gap 9, Glomerular Filtration Rate 42.1, Blood Urea Nitrogen 38H, Creatinine 1.32H, Sodium Level 141, Potassium Level 4.0, Chloride Level 104, Carbon Dioxide Level 28, Calcium Level 9.7 02/21/18 07:02: Bedside Glucose (Misc Panel) 87 CBC/BMP Laboratory Tests 02/21/18 06:43 Red Blood Count 4.04, Mean Corpuscular Volume 88.4, Mean Corpuscular Hemoglobin 28.0, Mean Corpuscular Hemoglobin Concent 31.7 L, Red Cell Distribution Width 14.8 H, Calcium Level 9.7 Microbiology Microbiology 02/18/18 Blood Culture - Preliminary, Resulted No Growth after 48 hours. All Specime... 02/18/18 Blood Culture - Preliminary, Resulted No Growth after 72 hours. All specime... 02/18/18 Respiratory Virus Panel (PCR) ([facility]) - Final, Complete LEONORA NICOLE MD Feb 21, 2018 11:48
[2018-02-21 14:00] VITALS: BP 154/62
[2018-02-21] MEDS: **hydrALAZINE** 50 MG TAB PO SCH ×2 (14:13→21:21)
[2018-02-21] MEDS ORDERED: oxyCODONE 5MG TAB PO ONE (14:30)
[2018-02-21] MEDS: ALPRAZolam 0.5 MG TAB PO PRN (16:27)
[2018-02-21] MEDS: GABAPENTIN 300 MG CAP PO PRN (16:28)
[2018-02-21 18:00] VITALS: BP 148/72
[2018-02-21] MEDS: AZITHROMYCIN INJ 500 MG, VIAL MATE ADAPTER 1 EACH in D5W 250 ML IV SCH (19:40)
[2018-02-21] MEDS: ATORVASTATIN 20 MG TAB PO SCH (21:20)
[2018-02-21 22:00] VITALS: BP 146/76
[2018-02-22] VITALS (7 sets, daily range): BP systolic 152–190; BP diastolic 80–90
[2018-02-22] MEDS: ANEXSIA, NORCO 7.5MG/325MG TABLET(HYDROCODONE/APAP) PO PRN ×4 (00:38→21:50)
[2018-02-22] MEDS: IPRATROPIUM 0.5MG/ALBUTEROL 2.5MG INH SOL UD 3ML (DUONEB)(J7620) NEB SCH ×5 (02:00→20:00)
[2018-02-22] MEDS: LEVOTHYROXINE 75MCG TABLET (0.075MG) PO SCH (05:40)
[2018-02-22] MEDS: oxyCODONE 5MG TAB PO PRN ×2 (05:42→20:29)
[2018-02-22] MEDS: **hydrALAZINE** 50 MG TAB PO SCH ×3 (05:42→22:08)
[2018-02-22 05:57] LABS: HEMATOCRIT 32.5 % (36.0-47.0); HEMOGLOBIN 10.3 g/dl (12.0-15.5); MEAN CORPUSCULAR HGB CONC 31.7 g/dl (32.0-36.5); MEAN CORPUSCULAR VOLUME 88.3 fl (80.0-96.0); PLATELET COUNT, AUTOMATED 143 10^3/uL (150-450); RED BLOOD COUNT 3.68 10^6/uL (4.00-5.40); WHITE BLOOD COUNT 6.9 10^3/uL (4.0-10.0)
[2018-02-22 06:24] LABS: BLOOD UREA NITROGEN 32 MG/DL (7-18); C REACTIVE PROTEIN QUANTITATIV < 0.30 MG/DL (0.00-0.30); CALCIUM LEVEL 8.9 MG/DL (8.8-10.2); CARBON DIOXIDE LEVEL 30 MEQ/L (21-32); CHLORIDE LEVEL 104 MEQ/L (98-107); CREATININE FOR GFR 1.08 MG/DL (0.55-1.30); GLOMERULAR FILTRATION RATE 53.1 (>39); GLUCOSE, FASTING 165 MG/DL (70-100); POTASSIUM SERUM 4.6 MEQ/L (3.5-5.1); SODIUM LEVEL 139 MEQ/L (136-145)
[2018-02-22] MEDS: LISINOPRIL 20 MG TAB PO SCH (08:34)
[2018-02-22] MEDS: SENNA 8.6 MG TAB (SENOKOT) PO SCH ×2 (08:34→21:51)
[2018-02-22] MEDS: OMEPRAZOLE 20 MG CAP PO SCH (08:34)
[2018-02-22] MEDS: CYANOCOBALAMIN 500 MCG TAB PO SCH (08:34)
[2018-02-22] MEDS: SERTRALINE HCL 50 MG TAB PO SCH (08:35)
[2018-02-22] MEDS: amLODIPine 10 MG TAB PO SCH (08:35)
[2018-02-22] MEDS: CLOPIDOGREL 75 MG TAB PO SCH (08:35)
[2018-02-22] MEDS: VITAMIN D 1,000 INTERNATIONAL UNITS TABLET PO SCH (08:35)
[2018-02-22] MEDS: predniSONE 20 MG TAB PO SCH (08:35)
[2018-02-22] MEDS: ASPIRIN 81 MG CHEW TABLET PO SCH (08:35)
[2018-02-22] MEDS: LEVEMIR (INSULIN DETEMIR) 1 UNITS/0.01ML SC SCH (08:36)
[2018-02-22] MEDS: HEPARIN SOD (PORCINE) 5000 UNITS/ML VIAL SC SCH ×2 (08:36→21:00)
[2018-02-22] MEDS: HumaLOG INSULIN (NovoLOG) PER UNIT SC SCH ×3 (08:37→17:30)
[2018-02-22] MEDS: ALPRAZolam 0.5 MG TAB PO PRN ×2 (10:48→20:29)
--- NOTE | 2018-02-22 11:42 | IPNPDOC ---
Subjective Date Seen The patient was seen on 02/22/18. Subjective Chief Complaint/HPI Patient seen and examined at the bedside this point. She reports having some abdominal pain this morning. Reports that she has not had a bowel movement in several days. Otherwise denies any acute complaints. Objective Physical Examination General Exam: Positive: Alert, Cooperative, No Acute Distress ENT Exam: Positive: Atraumatic, Mucous membr. moist/pink Neck Exam: Negative: JVD Chest Exam: Positive: Diminished; Negative: Rales, Rhonchi Heart Exam: Positive: Rate Normal, Normal S1, Normal S2 Abdomen Exam: Positive: Soft, Tenderness (mild tenderness to deep palpation in the upper quadrants.) Extremity Exam: Negative: Tenderness, Swelling Psych Exam: Positive: Oriented x 3 Assessment /Plan Plan/VTE VTE Prophylaxis Ordered?: Yes Plan Hypertensive Urgency/Emergency The patient's blood pressure is getting better controlled with adjustment of her medications. Renal Artery U/S ordered to r/o CESAR--negative for stenosis, albeit the study was limited We will cont to adjust the patient's medication dosing, as she states that her blood pressure has, "been uncontrolled for years." We will continue to monitor the patient Abdominal Pain likely 2/2 Constipation Patient reports she has not had a bowel movement in several days, and she has been taking narcotics regularly for her chronic pain KUB ordered Right upper quadrant ultrasound ordered to rule out underlying cholelithiasis Bowel regimen ordered We will cont to monitor Shortness of breath 2/2 COPD exacerbation CTA Chest was negative for any PE. Cont azithromycin, serial nebs, and Prednisone Extensively discussed the need for the patient to abstain from further tobacco use We'll continue to monitor the patient Chronic Kidney Disease Stage III Serum creatinine at baseline No Hydroureteronephrosis noted on CT Abd/Pel, Right Atrophic Kidney noted Peripheral Artery Disease s/p RLE angioplasty with stenting by Dr. Juarez in the past Cont ASA, Plavix, Statin F/U as outpatient Diabetes Mellitus Insulin sliding scale, Levemir, carb consistent diet History of hypothyroidism Continue home Synthroid. Anxiety/depression Sertraline, Xanax when necessary Peripheral neuropathy Continue gabapentin Dyslipidemia Continue statin Chronic pain The patient is on narcotic medication at baseline. She is requesting a higher dose of her medications claiming that the oxycodone she is receiving here is "d ifferent than what she takes at home, and does not work as well." She states that the pill is a different color. I have confirmed her medication and dosing, and it is indeed the same. The patient does have a history of overuse of narcotic medications when looking back at previous charting. We will keep a close eye on this. Deep vein thrombosis (DVT) prophylaxis Heparin SC Dispo--Pending workup of abdominal pain, control of her B/P, PT clearance. VS, I&O, 24H, Fishbone Vital Signs/I&O Vital Signs Date Time Temp Pulse Resp B/P (MAP) Pulse Ox O2 Delivery O2 Flow Rate FiO2 02/22/18 10:00 97.1 89 16 190/82 (118) 94 Room Air 02/20/18 18:00 2.0 I&O- Last 24 Hours up to 6 AM 02/22/18 05:59 Intake Total 2255 ml Output Total 900 ml Balance 1355 ml Laboratory Data 24H LABS Laboratory Tests 2 02/21/18 11:41: Bedside Glucose (Misc Panel) 45L 02/21/18 16:36: Bedside Glucose (Misc Panel) 79L 02/21/18 20:53: Bedside Glucose (Misc Panel) 239H 02/22/18 05:21: Nucleated Red Blood Cells % (auto) 0.0, Anion Gap 5L, Glomerular Filtration Rate 53.1, Blood Urea Nitrogen 32H, Creatinine 1.08, Sodium Level 139, Potassium Level 4.6, Chloride Level 104, Carbon Dioxide Level 30, Calcium Level 8.9, C- Reactive Protein, Quantitative < 0.30 CBC/BMP Laboratory Tests 02/22/18 05:21 Red Blood Count 3.68 L, Mean Corpuscular Volume 88.3, Mean Corpuscular Hemoglobi n 28.0, Mean Corpuscular Hemoglobin Concent 31.7 L, Red Cell Distribution Width 14.9 H, Calcium Level 8.9 Microbiology Microbiology 02/18/18 Blood Culture - Preliminary, Resulted No Growth after 72 hours. All specime... 02/18/18 Blood Culture - Preliminary, Resulted No Growth after 72 hours. All specime... 02/18/18 Respiratory Virus Panel (PCR) ([facility]) - Final, Complete LEONORA NICOLE MD Feb 22, 2018 11:41
--- NOTE | 2018-02-22 11:55 | REP ---
KUB: Single view. History: Abdomen pain. Comparison study: October 08, 2015. Findings: Bilateral common iliac artery vascular stents are noted in place. There is some motion artifact. Granulomatous calcifications are again seen in the spleen. There is diffuse osteopenia. Spondylosis changes are noted in the lumbar spine. The bowel gas pattern is normal. No small or large bowel dilation is seen. Psoas margins and flank stripes are intact. Impression: Normal gas pattern. Arterial stents in the common iliac arteries bilaterally. Electronically Signed by Shane Sumner MD 02/22/2018 11:47 A
[2018-02-22 12:44] LABS: LIPASE 136 U/L (73-393)
[2018-02-22] MEDS: AZITHROMYCIN INJ 500 MG, VIAL MATE ADAPTER 1 EACH in D5W 250 ML IV SCH (20:30)
[2018-02-22] MEDS: ATORVASTATIN 20 MG TAB PO SCH (21:51)
[2018-02-22] MEDS: GABAPENTIN 300 MG CAP PO PRN (21:51)
[2018-02-23 02:00] VITALS: BP 157/70
[2018-02-23] MEDS: IPRATROPIUM 0.5MG/ALBUTEROL 2.5MG INH SOL UD 3ML (DUONEB)(J7620) NEB SCH ×4 (02:00→19:28)
[2018-02-23] MEDS: LEVOTHYROXINE 75MCG TABLET (0.075MG) PO SCH (05:19)
[2018-02-23] MEDS: ANEXSIA, NORCO 7.5MG/325MG TABLET(HYDROCODONE/APAP) PO PRN ×2 (05:19→14:54)
[2018-02-23] MEDS: **hydrALAZINE** 50 MG TAB PO SCH ×3 (05:20→21:25)
[2018-02-23 05:42] LABS: HEMATOCRIT 34.1 % (36.0-47.0); HEMOGLOBIN 10.8 g/dl (12.0-15.5); MEAN CORPUSCULAR HEMOGLOBIN 27.8 pg (27.0-33.0); MEAN CORPUSCULAR HGB CONC 31.7 g/dl (32.0-36.5); MEAN CORPUSCULAR VOLUME 87.7 fl (80.0-96.0); PLATELET COUNT, AUTOMATED 161 10^3/uL (150-450); RED BLOOD COUNT 3.89 10^6/uL (4.00-5.40); WHITE BLOOD COUNT 9.6 10^3/uL (4.0-10.0)
[2018-02-23] MEDS: GABAPENTIN 300 MG CAP PO PRN (05:58)
[2018-02-23 06:00] VITALS: BP 174/79
[2018-02-23 06:11] LABS: CALCIUM LEVEL 9.1 MG/DL (8.8-10.2); CREATININE FOR GFR 1.02 MG/DL (0.55-1.30); GLOMERULAR FILTRATION RATE 56.7 (>39); POTASSIUM SERUM 4.1 MEQ/L (3.5-5.1)
[2018-02-23] MEDS: HumaLOG INSULIN (NovoLOG) PER UNIT SC SCH ×3 (07:30→18:11)
[2018-02-23] MEDS: HEPARIN SOD (PORCINE) 5000 UNITS/ML VIAL SC SCH ×2 (08:42→21:25)
[2018-02-23] MEDS: CLOPIDOGREL 75 MG TAB PO SCH (09:01)
[2018-02-23] MEDS: predniSONE 20 MG TAB PO SCH (09:01)
[2018-02-23] MEDS: SENNA 8.6 MG TAB (SENOKOT) PO SCH ×2 (09:03→21:25)
[2018-02-23] MEDS: LISINOPRIL 20 MG TAB PO SCH (09:03)
[2018-02-23] MEDS: OMEPRAZOLE 20 MG CAP PO SCH (09:03)
[2018-02-23] MEDS: VITAMIN D 1,000 INTERNATIONAL UNITS TABLET PO SCH (09:03)
[2018-02-23] MEDS: ASPIRIN 81 MG CHEW TABLET PO SCH (09:03)
[2018-02-23] MEDS: CYANOCOBALAMIN 500 MCG TAB PO SCH (09:03)
[2018-02-23] MEDS: SERTRALINE HCL 50 MG TAB PO SCH (09:04)
[2018-02-23] MEDS: amLODIPine 10 MG TAB PO SCH (09:04)
[2018-02-23] MEDS: oxyCODONE 5MG TAB PO PRN ×2 (09:06→21:29)
[2018-02-23 10:00] VITALS: BP 172/83
--- NOTE | 2018-02-23 10:28 | IPNPDOC ---
Subjective Date Seen The patient was seen on 02/23/18. Subjective Chief Complaint/HPI Patient seen and examined at the bedside. Continues to report abdominal pain this morning. Denies any nausea, vomiting, or diarrhea. No fevers overnight, the patient's lipase level is within normal limits. Gallbladder Ultrasound Pending Objective Physical Examination General Exam: Positive: Alert, Cooperative, No Acute Distress ENT Exam: Positive: Atraumatic, Mucous membr. moist/pink Neck Exam: Negative: JVD Chest Exam: Positive: Diminished; Negative: Rales, Rhonchi Heart Exam: Positive: Rate Normal, Normal S1, Normal S2 Abdomen Exam: Positive: Soft, Tenderness (mild tenderness to deep palpation in the upper quadrants. Inconsistent pain--Upon examination, the patient does not have any abdominal pain on palpation while she is conversating and not focused on the exam) Extremity Exam: Negative: Tenderness, Swelling Psych Exam: Positive: Oriented x 3 Assessment /Plan Plan/VTE VTE Prophylaxis Ordered?: Yes Plan Acute on Chronic pain The patient has stated claims of pain ranging from her lower back and across her abdomen at different times during this admission. Upon examination, the patient does not have any abdominal pain on palpation while she is conversing and not focused on the exam. CT abd/pel, KUB without any acute findings U/S Gallbladder results pending MRI Thoracic and Lumbar spine ordered Cont on current home pain regimen Pain management consulted Hypertensive Urgency, improving The patient's blood pressure is getting better controlled with adjustment of her medications. Renal Artery U/S ordered to r/o CESAR--negative for stenosis, albeit the study was limited We will cont to adjust the patient's medication dosing, as she states that her blood pressure has, "been uncontrolled for years." Cont regimen as ordered We will continue to monitor the patient Shortness of breath 2/2 COPD exacerbation CTA Chest was negative for any PE. Cont serial nebs, and Prednisone Extensively discussed the need for the patient to abstain from further tobacco use We'll continue to monitor the patient Chronic Kidney Disease Stage III Serum creatinine at baseline No Hydroureteronephrosis noted on CT Abd/Pel, Right Atrophic Kidney noted Peripheral Artery Disease s/p RLE angioplasty with stenting by Dr. Juarez in the past Cont ASA, Plavix, Statin F/U as outpatient Diabetes Mellitus Insulin sliding scale, Levemir, carb consistent diet History of hypothyroidism Continue home Synthroid. Anxiety/depression Sertraline, Xanax when necessary Peripheral neuropathy Continue gabapentin Dyslipidemia Continue statin Deep vein thrombosis (DVT) prophylaxis Heparin SC Dispo--Pending workup of abdominal pain, control of her B/P, PT clearance. VS, I&O, 24H, Fishbone Vital Signs/I&O Vital Signs Date Time Temp Pulse Resp B/P (MAP) Pulse Ox O2 Delivery O2 Flow Rate FiO2 02/23/18 10:15 20 Room Air 02/23/18 09:04 72 174/79 02/23/18 06:00 97.1 91 02/20/18 18:00 2.0 I&O- Last 24 Hours up to 6 AM 02/23/18 06:00 Intake Total 1050 ml Output Total 950 ml Balance 100 ml Laboratory Data 24H LABS Laboratory Tests 2 02/22/18 11:37: Bedside Glucose (Misc Panel) 182H 02/22/18 16:49: Bedside Glucose (Misc Panel) 202H 02/22/18 22:07: Bedside Glucose (Misc Panel) 278H 02/23/18 05:25: Nucleated Red Blood Cells % (auto) 0.0, Anion Gap 9, Glomerular Filtration Rate 56.7, Blood Urea Nitrogen 28H, Creatinine 1.02, Sodium Level 142, Potassium Level 4.1, Chloride Level 105, Carbon Dioxide Level 28, Calcium Level 9.1 CBC/BMP Laboratory Tests 02/23/18 05:25 Red Blood Count 3.89 L, Mean Corpuscular Volume 87.7, Mean Corpuscular Hemoglobin 27.8, Mean Corpuscular Hemoglobin Concent 31.7 L, Red Cell Distribution Width 15.1 H, Calcium Level 9.1 Microbiology Microbiology 02/18/18 Blood Culture - Preliminary, Resulted No Growth after 72 hours. All specime... 02/18/18 Blood Culture - Final, Complete NO GROWTH AFTER 5 DAYS 02/18/18 Respiratory Virus Panel (PCR) ([facility]) - Final, Complete LEONORA NICOLE MD Feb 23, 2018 10:28
--- NOTE | 2018-02-23 12:52 | REP ---
MRI THORACIC SPINE WITHOUT CONTRAST: HISTORY: Back pain. A small central disc protrusion is present at the T5-6 level. There is minimal effacement of the thecal sac without spinal cord compression. The T5 neural foramina are patent. A disc bulge is present at the T8-9 level. There is minimal effacement of the thecal sac without spinal cord compression. The T8 neural foramina are patent. A small right paracentral disc protrusion is present at the T9-10 level. There is minimal effacement of the thecal sac without spinal cord compression. The T9 neural foramina are patent. There is no other disc bulge or herniation. The remaining neural foramina are patent. The spinal cord is normal in signal intensity. The spinal cord is small in size. There is loss of height of several mid and lower thoracic intervertebral discs. Normal signal intensity is present in the thoracic vertebral bodies. IMPRESSION: 1. Small disc protrusions at the T5-6 and T9-10 levels without spinal cord compression. 2. Disc bulge at the T8-9 level without spinal cord compression. 3. The spinal cord is small in size consistent with myelomalacia. Electronically Signed by Giacomo Worrell MD 02/23/2018 12:58 P
--- NOTE | 2018-02-23 13:01 | REP ---
MRI LUMBAR SPINE WITHOUT CONTRAST: HISTORY: Back pain. Decreased signal intensity on T2 weighted images is present in the L4-5 and L5-S1 intervertebral discs. The discs are decreased in height. These findings are consistent with disc degeneration . There is no disc bulge or herniation at the L1-2 level. The L1 nerves exit the neural foramina without compression. A diffuse disc bulge is present at the L2-3 level. There is hypertrophy of the ligamenta flava and posterior articulating facets. These findings minimal central canal stenosis. The L2 nerves exit the neural foramina without compression. A diffuse disc bulge is present at the L3-4 level. There is hypertrophy of the ligamenta flava and posterior articulating facets. These findings produce mild central canal stenosis. The L3 nerves exit the neural foramina without compression. A diffuse disc bulge is present at the L4-5 level. There is hypertrophy of the ligamenta flava and posterior articulating facets. There are 6 mm of grade 1 spondylolisthesis of L4 on 5. These findings produce severe central canal stenosis. There is compression of the right L4 nerve in the neural foramen. The left L4 nerve exits the neural foramen without compression. A diffuse disc bulge and small right paracentral disc protrusion are present at the L5-S1 level. There is minimal compression of the thecal sac and right S1 nerve as it exits the thecal sac. There is hypertrophy of the posterior articulating facets. The L5 nerves exit the neural foramina without compression. The conus medullaris is normal in appearance terminating at the level of the L1-2 intervertebral disc. No increased signal intensity on T2 weighted images is present at the endplates of the L5 and S1 vertebral bodies. This represents degenerative change. IMPRESSION:1. Minimal central canal stenosis at the L2-3 level secondary to disc bulge, ligamentous and facet hypertrophy. 2. Mild central canal stenosis at the L3-4 level secondary to disc bulge, ligamentous and facet hypertrophy. 3. Severe central canal stenosis at the L4-5 level secondary to disc bulge, ligamentous and facet hypertrophy and grade 1 spondylolisthesis. There is compression of the right L4 nerve in the neural foramen. 4. Diffuse disc bulge and small right paracentral disc protrusion at the L5-S1 level with minimal compression of the thecal sac and right S1 nerve as it exits the thecal sac. Electronically Signed by Giacomo Worrell MD 02/23/2018 01:04 P
[2018-02-23] MEDS: LEVEMIR (INSULIN DETEMIR) 1 UNITS/0.01ML SC SCH (13:30)
[2018-02-23 14:00] VITALS: BP 141/66
--- NOTE | 2018-02-23 14:11 | REP ---
RIGHT UPPER QUADRANT SONOGRAPHY: HISTORY: Rule out gallstone. FINDINGS: Scanning through the right upper quadrant of the abdomen demonstrates tenderness to scanning over the gallbladder. Gallbladder wall is not thickened. No stone is seen. There is evidence of a 0.5 cm polyp on the dependent portion of the gallbladder without evidence of shadowing. Common bile duct is at the upper range of normal measuring 0.7 cm in greatest diameter. The liver measures 17 cm in craniocaudal span in the midclavicular line which is also the upper range of normal for size. No focal liver lesion is seen. No pancreatic abnormality is observed. The main pancreatic duct is slightly prominent at 0.3 cm. There is a tiny amount of fluid next to the right kidney. Right kidney measures 7.5 x 4.5 x 3.4 cm. These measurements show renal atrophy. There is a 2.1 cm cyst in the right kidney. IMPRESSION: Right renal atrophy. Small polyp in the gallbladder. Borderline CBD and liver size. Electronically Signed by Shane Sumner MD 02/23/2018 08:18 P
[2018-02-23 18:00] VITALS: BP 136/62
[2018-02-23] MEDS: ATORVASTATIN 20 MG TAB PO SCH (21:24)
[2018-02-23 22:00] VITALS: BP 145/67
[2018-02-24 02:00] VITALS: BP 140/84
[2018-02-24] MEDS: IPRATROPIUM 0.5MG/ALBUTEROL 2.5MG INH SOL UD 3ML (DUONEB)(J7620) NEB SCH ×4 (02:00→21:28)
[2018-02-24] MEDS: ANEXSIA, NORCO 7.5MG/325MG TABLET(HYDROCODONE/APAP) PO PRN ×3 (04:14→18:31)
[2018-02-24] MEDS: LEVOTHYROXINE 75MCG TABLET (0.075MG) PO SCH (05:56)
[2018-02-24] MEDS: **hydrALAZINE** 50 MG TAB PO SCH ×3 (05:56→21:08)
[2018-02-24 06:00] VITALS: BP 149/78
[2018-02-24 06:03] LABS: HEMATOCRIT 30.5 % (36.0-47.0); HEMOGLOBIN 9.7 g/dl (12.0-15.5); MEAN CORPUSCULAR HGB CONC 31.8 g/dl (32.0-36.5); MEAN CORPUSCULAR VOLUME 87.9 fl (80.0-96.0); PLATELET COUNT, AUTOMATED 144 10^3/uL (150-450); RED BLOOD COUNT 3.47 10^6/uL (4.00-5.40); WHITE BLOOD COUNT 9.1 10^3/uL (4.0-10.0)
[2018-02-24 06:28] LABS: CALCIUM LEVEL 8.9 MG/DL (8.8-10.2); CREATININE FOR GFR 1.33 MG/DL (0.55-1.30); GLOMERULAR FILTRATION RATE 41.7 (>39); POTASSIUM SERUM 4.1 MEQ/L (3.5-5.1)
[2018-02-24] MEDS: HumaLOG INSULIN (NovoLOG) PER UNIT SC SCH ×3 (07:30→17:18)
[2018-02-24] MEDS: oxyCODONE 5MG TAB PO PRN ×2 (08:11→20:37)
[2018-02-24] MEDS: VITAMIN D 1,000 INTERNATIONAL UNITS TABLET PO SCH (08:42)
[2018-02-24] MEDS: HEPARIN SOD (PORCINE) 5000 UNITS/ML VIAL SC SCH ×2 (08:42→20:35)
[2018-02-24] MEDS: predniSONE 20 MG TAB PO SCH (08:42)
[2018-02-24] MEDS: ASPIRIN 81 MG CHEW TABLET PO SCH (08:42)
[2018-02-24] MEDS: SERTRALINE HCL 50 MG TAB PO SCH (08:42)
[2018-02-24] MEDS: LISINOPRIL 20 MG TAB PO SCH (08:42)
[2018-02-24] MEDS: CYANOCOBALAMIN 500 MCG TAB PO SCH (08:42)
[2018-02-24] MEDS: OMEPRAZOLE 20 MG CAP PO SCH (08:42)
[2018-02-24] MEDS: SENNA 8.6 MG TAB (SENOKOT) PO SCH ×2 (08:42→20:35)
[2018-02-24] MEDS: CLOPIDOGREL 75 MG TAB PO SCH (08:42)
[2018-02-24] MEDS: amLODIPine 10 MG TAB PO SCH (08:42)
[2018-02-24] MEDS: LEVEMIR (INSULIN DETEMIR) 1 UNITS/0.01ML SC SCH (08:43)
[2018-02-24 14:18] VITALS: BP 118/72
--- NOTE | 2018-02-24 15:56 | IPN ---
DATE: 02/24/2018 SUBJECTIVE: Patient is seen and examined in the room today. Patient is still complaining about significant right lower back pain and right upper abdominal pain. Patient's MRI of the lumbar spine results were discussed. OBJECTIVE: VITAL SIGNS: Temperature 98.4, pulse 86, respiratory rate 19, blood pressure 149/78, pulse oximetry 93% in room air. GENERAL: No sign of acute distress. Patient is alert and awake. HEENT: Normocephalic, atraumatic. Extraocular motors grossly intact. CARDIOVASCULAR: Positive S1, S2, regular rate. LUNGS: Clear to auscultation bilaterally. ABDOMEN: Soft, some mild tenderness to palpation in the right upper abdomen, in consistent pain. EXTREMITIES: No edema. LABORATORY DATA: WBC 9.1, hemoglobin 9.7, hematocrit 30.5, platelet count 144, sodium 140, potassium 4.1, chloride 104, carbon dioxide 29, BUN 33, creatinine 1.33, GFR 41.7, fasting glucose 97, calcium 8.9. ASSESSMENT AND PLAN: 1. Acute on chronic pain. MRI of the lumbar spine demonstrates patient has severe central canal stenosis and there is compression of right L4 nerve in the neural foramen. Pain management consulted yesterday, waiting for their recommendation. Orthopaedic team also consulted. Currently, patient is on her home pain medication regimen. 2. Hypertensive urgency. On admission, patient had blood pressure, highest, of 254/116. Currently, patient is on amlodipine, hydralazine, lisinopril. Blood pressure has been under better control. 3. Chronic obstructive pulmonary disease (COPD) exacerbation. Improved. Patient is on steroids. 4. Peripheral artery disease status post right lower extremity angioplasty with stenting by Dr. Juarez in the past. Currently, on aspirin, Plavix, and statin. Continue outpatient followup. 5. Chronic kidney disease stage III. Continue to monitor renal function. 6. Anxiety/depression. On Zoloft. 7. Hypothyroidism, on Synthroid. 8. Diabetes. On insulin and consistent carbohydrate diet. 9. Deep venous thrombosis (DVT) prophylaxis. Heparin ordered.
--- NOTE | 2018-02-24 16:50 | CR ---
DATE OF CONSULTATION: 02/24/2018 CHIEF COMPLAINT: 1. Right mid to low back pain. 2. Right-sided abdominal pain. CONSULTATION REPORT FOR: Dr. Cuevas HISTORY OF PRESENT ILLNESS: Lula is a 72-year-old female who suffers from multiple medical comorbidities, who was admitted last week for hypertensive crisis. Accompanied in the examination room with the body component engineer. States that her level of pain is an 8/10. Patient is able to move freely out of bed to show me the exact location without any demonstration of increases in pain or stiffness. Reports that pain is aggravated in the right back area with movement. MRI of the lumbosacral (LS) spine is showing severe spinal stenosis and severe central canal stenosis with compression of the right L4 nerve in the neuroforamen. Showing multilevel facet arthropathy. It was recommended that she try epidurals. The patient is not an epidural candidate due to Plavix therapy. We did discuss other treatments to include trigger point injections. The patient is a little bit reluctant to try procedures. She is very afraid that we are not going to recommend that she be on her pain medicine that she is on at home which is oxycodone. Appears a bit anxious. PAST MEDICAL HISTORY: See admission history and physical. 1. Chronic obstructive chronic obstructive pulmonary disease (COPD) on oxygen therapy at home. 2. Hypertension. 3. Hyperlipidemia. 4. Active tobacco use. 5. Severe peripheral artery disease. 6. Angioplasty with stenting, lower extremity. PAST SURGICAL HISTORY: 1. Right lower extremity angiogram, angioplasty, stenting. 2. Hysterectomy. 3. Transurethral bladder tumor resection. ALLERGIES: ACETAMINOPHEN, BACITRACIN, CORTISONE, FLUOXETINE, NEOMYCIN, POLYMYXIN, RED DYE, SULFA ANTIBIOTICS, TRAMADOL. SOCIAL HISTORY: The patient lives alone. She admits today that she does not want to live alone anymore. States that she has some assistance with an agency on a regular basis. She has one son who lives local and one son who lives in [place]. Reports another son has of colon cancer. States that she has been smoking one pack per day since she was 11 years old. PHYSICAL EXAMINATION: Affect is constricted and agitated. No acute distress. VITAL SIGNS: Temperature 98, pulse 90, respiratory rate 19, blood pressure 118/72, oxygen saturation is 93% on room air. CARDIAC: S1, S2, normal rate and rhythm. RESPIRATORY: Lung sounds are clear. Respirations are diminished in the bases. INSPECTION: Trigger points elicited in the right mid to low thoracic paraspinal region. The patient reports increase in pain in this area with range of joint motion of her spine or movement in bed. Tenderness over the lumbosacral (LS) axis and LS paraspinal muscles. DIAGNOSTIC DATA: MRI of the lumbar spine 02/23/2018 reviewed, severe central canal stenosis at the L4-5 level secondary to ligamentous and facette hypertrophy and grade 1 spondylolisthesis. ASSESSMENT: 1. Myofascial pain. 2. Right thoracic pain. PLAN: The only interventional technique for pain control that we could do safely on anticoagulants would be trigger point injections. Scheduled for trigger point injections to the right thoracic and lower thoracic area tomorrow. Nothing by mouth for six hours preprocedure. May have clear fluids up to two hours preprocedure. Continue current chronic pain medication. She may benefit from inpatient or acute rehabilitation. She voices concern over living alone and I would recommend a patient and family service evaluation. SUNITA
--- NOTE | 2018-02-24 17:25 | CR ---
DATE OF CONSULTATION: 02/24/2018 I was asked to see her for back pain. She is a 72-year-old female who has been here since February 18 for the hypertensive crisis, chronic obstructive pulmonary disease (COPD) exacerbation, and anxiety. That has recently been under control, and she is stabilizing from that standpoint; however, she continues to have trouble with back pain. Relevant history with her back is she does have a history of having back pain in the past. Was treated in [place], she says years ago, by a doctor there and was told she had degenerative disc disease. She describes having an injection in her back that gave her great relief of her pain, but she says it was complicated by low blood sugar afterward, requiring admission to the emergency room, that stabilized, and then the shot wore off. Since then she has been having pain in her back for many years. She is not describing bowel or bladder dysfunction as a result of pain or numbness into her groin or perineum; however, she oftentimes goes many days without having a bowel movement. Presently she says her last bowel movement was on her admission. She has not had one since, she describes to me. Nonetheless, she does not have pain radiation down her legs or tingling or numbness; however, she does have troubles with poor circulation in her lower extremities. She is followed by Dr. Juarez, our vascular surgeon. She has had bilateral stents in her legs, and they were put into her groin, by her description. Her right leg is a bit more involved than the left. Recently has developed some toe cellulitis. Is regularly followed by Dr. Juarez. He prescribes for her narcotics and gabapentin medication. She also takes Plavix for her poor circulation. Because of her troubles with persistent back pain, her physicians have ordered an MR scan, which I had a chance to review, demonstrating fairly dramatic spinal stenosis, especially noted at L4-5, associated with some spondylolisthesis at that level. No evidence for any fractures or other pathology noted. An MR scan also of her thoracic spine showed small protrusions at T5-6 and T9-10 with more of a bulge at T8-9. Spinal cord was noted to be relatively small. PAST MEDICAL HISTORY: Significant for: 1. Some bladder cancer, followed by Dr. Astudillo. 2. Severe chronic obstructive pulmonary disease (COPD). She is a lifetime smoker since the age of 11. 3. Peripheral vascular disease. 4. Hypercholesterolemia. 5. Insulin-dependent diabetes. 6. Hypothyroidism. PAST SURGICAL HISTORY: Otherwise, other than her bladder surgery is: 1. Bronchoscopy and lavage. 2. Hysterectomy. HOME MEDICATIONS: Inhalers, hydrocodone, alprazolam, amlodipine, baby aspirin, Plavix, atorvastatin, gabapentin, hydralazine, Lantus insulin, Synthroid, lisinopril, Prilosec, prednisone, and sertraline. ALLERGIES: Multiple. She does continue to smoke cigarettes. She is . Has a son locally, and another one lives back home in [place]. When I examine her, she is a pleasant female. She is alert. She is able to get in and out of the bed easily and allowed me to examine her standing. She was able to walk on her tip-toes and walk on her heels. She has some mild soreness diffusely in the midline across the low back. She had intact reflexes at the knees and at the ankles. No clonus. Babinski negative. Sensory testing was intact. Her feet were actually warm and with good capillary refill, but I was unable to palpate good pulses bilaterally. There is some mild cellulitis noted about the right great toe. She is able to do a straight leg raise bilaterally without discomfort. Knee flexion and strength was intact as were hip flexors and knee extensors. LABORATORY STUDIES: Today, white count 9.1, hematocrit 30.5, platelets 144. Chemistries: Sodium 140, potassium 4.1, chloride 104, bicarbonate 29, BUN 33, creatinine 1.33. MR scan as described. She had a foot x-ray on the right side, which did not show any acute fractures, just some arthritis at the metatarsophalangeal (MTP) joint. IMPRESSION: Low back pain with spinal stenosis, grade 1 listhesis of 4 on 5 that is symptomatic. She has responded beautifully in the past, she describes, to some type of injection into her back. It is possible an epidural steroid injection may have been done then that helped. She is not interested in any surgical intervention at all, and I think it reasonable to treat this presently with conservative measures, such as physical therapy, pain service evaluation, and consideration for epidural steroid injections when they feel it is safe for her. May have to discontinue her Plavix to do so. I discussed this with her at length. She is happy to proceed now along that line, and we are going to make that recommendation. I discussed this briefly with Dr. Cardona.
[2018-02-24] MEDS: GABAPENTIN 300 MG CAP PO PRN (17:26)
[2018-02-24 18:36] VITALS: BP 148/80
[2018-02-24] MEDS: MOM 30ML SUSPENSION UDC PO PRN (20:35)
[2018-02-24] MEDS: ATORVASTATIN 20 MG TAB PO SCH (20:35)
[2018-02-24 22:00] VITALS: BP 146/75
[2018-02-25] MEDS: IPRATROPIUM 0.5MG/ALBUTEROL 2.5MG INH SOL UD 3ML (DUONEB)(J7620) NEB SCH ×4 (01:36→21:50)
[2018-02-25 02:00] VITALS: BP 149/79
[2018-02-25 05:00] VITALS: BP 188/80
[2018-02-25] MEDS: oxyCODONE 5MG TAB PO PRN ×2 (05:06→18:58)
[2018-02-25] MEDS: LEVOTHYROXINE 75MCG TABLET (0.075MG) PO SCH (05:06)
[2018-02-25] MEDS: **hydrALAZINE** 50 MG TAB PO SCH ×3 (05:07→21:23)
[2018-02-25 06:00] VITALS: BP 146/62
[2018-02-25 06:17] LABS: HEMATOCRIT 35.3 % (36.0-47.0); HEMOGLOBIN 11.2 g/dl (12.0-15.5); MEAN CORPUSCULAR HEMOGLOBIN 27.6 pg (27.0-33.0); MEAN CORPUSCULAR HGB CONC 31.7 g/dl (32.0-36.5); MEAN CORPUSCULAR VOLUME 86.9 fl (80.0-96.0); PLATELET COUNT, AUTOMATED 197 10^3/uL (150-450); RED BLOOD COUNT 4.06 10^6/uL (4.00-5.40); WHITE BLOOD COUNT 18.5 10^3/uL (4.0-10.0)
[2018-02-25 06:39] LABS: CALCIUM LEVEL 9.1 MG/DL (8.8-10.2); CREATININE FOR GFR 1.12 MG/DL (0.55-1.30); GLOMERULAR FILTRATION RATE 50.9 (>39); POTASSIUM SERUM 4.1 MEQ/L (3.5-5.1)
[2018-02-25] MEDS: ANEXSIA, NORCO 7.5MG/325MG TABLET(HYDROCODONE/APAP) PO PRN (07:52)
[2018-02-25] MEDS: HumaLOG INSULIN (NovoLOG) PER UNIT SC SCH ×3 (07:53→16:54)
[2018-02-25] MEDS: SENNA 8.6 MG TAB (SENOKOT) PO SCH ×2 (09:00→21:22)
[2018-02-25] MEDS: CYANOCOBALAMIN 500 MCG TAB PO SCH (09:00)
[2018-02-25] MEDS: HEPARIN SOD (PORCINE) 5000 UNITS/ML VIAL SC SCH ×2 (09:00→21:22)
[2018-02-25] MEDS ORDERED: predniSONE 20 MG TAB PO SCH (09:00)
[2018-02-25] MEDS: SERTRALINE HCL 50 MG TAB PO SCH (09:46)
[2018-02-25] MEDS: CLOPIDOGREL 75 MG TAB PO SCH (09:46)
[2018-02-25] MEDS: VITAMIN D 1,000 INTERNATIONAL UNITS TABLET PO SCH (09:46)
[2018-02-25] MEDS: OMEPRAZOLE 20 MG CAP PO SCH (09:46)
[2018-02-25] MEDS: amLODIPine 10 MG TAB PO SCH (09:46)
[2018-02-25] MEDS: ASPIRIN 81 MG CHEW TABLET PO SCH (09:46)
[2018-02-25] MEDS: LEVEMIR (INSULIN DETEMIR) 1 UNITS/0.01ML SC SCH (09:47)
[2018-02-25] MEDS: LISINOPRIL 20 MG TAB PO SCH (09:47)
[2018-02-25] MEDS ORDERED: oxyCODONE 5MG TAB As Ordered ONE (14:12)
[2018-02-25] MEDS ORDERED: diazePAM 5 MG TAB As Ordered ONE (14:13)
[2018-02-25] MEDS ORDERED: BUPIVACAINE HCL 0.25% 10 ML VIAL As Ordered ONE (14:39)
[2018-02-25] MEDS ORDERED: TRIAMCINOLONE ACETONIDE SUSP 40 MG/ML VIAL (J3301) As Ordered ONE (14:39)
[2018-02-25] MEDS ORDERED: BUPIVACAINE HCL 0.25% 30 ML VIAL As Ordered ONE (14:40)
[2018-02-25 18:00] VITALS: BP 136/60
--- NOTE | 2018-02-25 19:04 | IPNPDOC ---
Text Note Date of Service The patient was seen on 02/25/18. NOTE SUBJECTIVE: Patient is seen and examined in the room today. Patient is still complaining about significant right lower back pain and right upper abdominal pain. Patient denies fever or chill. Patient is ready for trigger point injection. OBJECTIVE: VITAL SIGNS: Listed below. GENERAL: No sign of acute distress. Patient is alert and awake. HEENT: Normocephalic, atraumatic. Extraocular motors grossly intact. CARDIOVASCULAR: Positive S1, S2, regular rate. LUNGS: Clear to auscultation bilaterally. ABDOMEN: Soft, some mild tenderness to palpation in the right upper abdomen. EXTREMITIES: No edema. LABORATORY DATA: Listed below. ASSESSMENT AND PLAN: #. Acute on chronic pain. - MRI of the lumbar spine demonstrates patient has severe central canal stenosis and there is compression of right L4 nerve in the neural foramen. - Pain management consulted and Orthopaedic team also consulted. On her home pain medication regimen. Scheduled trigger point injection today. #. Hypertensive urgency. - On admission, patient had blood pressure, highest, of 254/116. Currently, patient is on amlodipine, hydralazine, lisinopril. Blood pressure has been under better control. #. Chronic obstructive pulmonary disease (COPD) exacerbation. Improved. Patient is on steroids. #. Peripheral artery disease status post right lower extremity angioplasty with stenting by Dr. Juarez in the past. Currently, on aspirin, Plavix, and statin. Continue outpatient followup. #. Chronic kidney disease stage III. Continue to monitor renal function. #. Anxiety/depression. On Zoloft. #. Hypothyroidism, on Synthroid. #. Diabetes. On insulin and consistent carbohydrate diet. #. Deep venous thrombosis (DVT) prophylaxis. Heparin ordered. VS,Fishbone, I+O VS, Fishbone, I+O Laboratory Tests 02/25/18 05:25 Red Blood Count 4.06, Mean Corpuscular Volume 86.9, Mean Corpuscular Hemoglobin 27.6, Mean Corpuscular Hemoglobin Concent 31.7 L, Red Cell Distribution Width 15.4 H, Calcium Level 9.1 Vital Signs Date Time Temp Pulse Resp B/P (MAP) Pulse Ox O2 Delivery O2 Flow Rate FiO2 02/25/18 18:58 16 02/25/18 18:00 98.0 53 136/60 (85) 92 Room Air 02/20/18 18:00 2.0 I&O- Last 24 Hours up to 6 AM 02/25/18 06:00 Intake Total 870 ml Output Total 850 ml Balance 20 ml GEORGIA DENIS DO Feb 25, 2018 19:04
[2018-02-25] MEDS: ATORVASTATIN 20 MG TAB PO SCH (21:22)
[2018-02-25] MEDS: MOM 30ML SUSPENSION UDC PO PRN (21:22)
[2018-02-25 22:00] VITALS: BP 134/64
[2018-02-26 02:00] VITALS: BP 130/62
[2018-02-26] MEDS: IPRATROPIUM 0.5MG/ALBUTEROL 2.5MG INH SOL UD 3ML (DUONEB)(J7620) NEB SCH ×4 (02:00→20:00)
[2018-02-26] MEDS: **hydrALAZINE** 50 MG TAB PO SCH ×2 (05:38→20:46)
[2018-02-26] MEDS: LEVOTHYROXINE 75MCG TABLET (0.075MG) PO SCH (05:38)
[2018-02-26] MEDS: oxyCODONE 5MG TAB PO PRN ×2 (05:39→18:09)
[2018-02-26 06:00] VITALS: BP 146/86
[2018-02-26 06:22] LABS: HEMATOCRIT 36.6 % (36.0-47.0); HEMOGLOBIN 11.7 g/dl (12.0-15.5); MEAN CORPUSCULAR HEMOGLOBIN 28.3 pg (27.0-33.0); MEAN CORPUSCULAR VOLUME 88.4 fl (80.0-96.0); PLATELET COUNT, AUTOMATED 172 10^3/uL (150-450); RED BLOOD COUNT 4.14 10^6/uL (4.00-5.40); WHITE BLOOD COUNT 11.2 10^3/uL (4.0-10.0)
[2018-02-26 06:47] LABS: CALCIUM LEVEL 9.1 MG/DL (8.8-10.2); CREATININE FOR GFR 1.14 MG/DL (0.55-1.30); GLOMERULAR FILTRATION RATE 49.9 (>39); POTASSIUM SERUM 4.9 MEQ/L (3.5-5.1)
[2018-02-26] MEDS: HumaLOG INSULIN (NovoLOG) PER UNIT SC SCH ×3 (08:06→18:09)
[2018-02-26] MEDS: LEVEMIR (INSULIN DETEMIR) 1 UNITS/0.01ML SC SCH (08:06)
[2018-02-26] MEDS: amLODIPine 10 MG TAB PO SCH (08:06)
[2018-02-26] MEDS: ASPIRIN 81 MG CHEW TABLET PO SCH (08:06)
[2018-02-26] MEDS: ANEXSIA, NORCO 7.5MG/325MG TABLET(HYDROCODONE/APAP) PO PRN ×2 (08:07→22:17)
[2018-02-26] MEDS: OMEPRAZOLE 20 MG CAP PO SCH (08:07)
[2018-02-26] MEDS: SENNA 8.6 MG TAB (SENOKOT) PO SCH ×2 (08:07→20:45)
[2018-02-26] MEDS: SERTRALINE HCL 50 MG TAB PO SCH (08:07)
[2018-02-26] MEDS: predniSONE 10 MG TAB PO SCH (08:07)
[2018-02-26] MEDS: VITAMIN D 1,000 INTERNATIONAL UNITS TABLET PO SCH (08:08)
[2018-02-26] MEDS: CLOPIDOGREL 75 MG TAB PO SCH (08:08)
[2018-02-26] MEDS: LISINOPRIL 20 MG TAB PO SCH (08:08)
[2018-02-26] MEDS: CYANOCOBALAMIN 500 MCG TAB PO SCH (08:08)
[2018-02-26] MEDS: HEPARIN SOD (PORCINE) 5000 UNITS/ML VIAL SC SCH ×2 (08:08→20:46)
[2018-02-26] MEDS ORDERED: HYDR-3911 PO (08:33)
[2018-02-26] MEDS ORDERED: AMLO10TA5 PO (08:33)
[2018-02-26 10:00] VITALS: BP 134/67
[2018-02-26] MEDS: ALPRAZolam 0.5 MG TAB PO PRN (11:37)
[2018-02-26 12:00] VITALS: BP 117/56
[2018-02-26 14:26] LABS: HEMOGLOBIN A1c 7.6 %
--- NOTE | 2018-02-26 16:18 | IPNPDOC ---
Text Note Date of Service The patient was seen on 02/26/18. NOTE SUBJECTIVE: Patient is seen and examined in the room today. Patient had trigger point injection yesterday. She tolerated procedure. Denies acute complaint. No fever or chill. Patient states she had similar injection in the past. She had uncontrolled hyperglycemia after that procedure many years ago. OBJECTIVE: VITAL SIGNS: Listed below. GENERAL: No sign of acute distress. Patient is alert and awake. Sitting comfortable in bed. HEENT: Normocephalic, atraumatic. Extraocular motors grossly intact. CARDIOVASCULAR: Positive S1, S2, regular rate. LUNGS: Clear to auscultation bilaterally. ABDOMEN: Soft, bowel sound present. EXTREMITIES: No edema. LABORATORY DATA: Listed below. ASSESSMENT AND PLAN: #. Acute on chronic pain. - MRI of the lumbar spine demonstrates patient has severe central canal stenosis and there is compression of right L4 nerve in the neural foramen. - Pain management consulted and Orthopaedic team also consulted. On her home pain medication regimen. - Trigger point injection on 02/25/18. #. Hypertensive urgency. - On admission, patient had blood pressure, highest, of 254/116. Currently, patient is on amlodipine, hydralazine, lisinopril. Blood pressure has been under better control. #. Diabetes. - On insulin and consistent carbohydrate diet. - Patient has been on tapering steroid. Patient just had trigger point injection yesterday. Will monitor glucose closely. #. Chronic obstructive pulmonary disease (COPD) exacerbation. Improved. Patient is on steroids. #. Peripheral artery disease status post right lower extremity angioplasty with stenting by Dr. Juarez in the past. Currently, on aspirin, Plavix, and statin. Continue outpatient followup. #. Chronic kidney disease stage III. Continue to monitor renal function. #. Anxiety/depression. On Zoloft. #. Hypothyroidism, on Synthroid. #. Deep venous thrombosis (DVT) prophylaxis. Heparin ordered. VS,Fishbone, I+O VS, Fishbone, I+O Laboratory Tests 02/26/18 05:23 Red Blood Count 4.14, Mean Corpuscular Volume 88.4, Mean Corpuscular Hemoglobin 28.3, Mean Corpuscular Hemoglobin Concent 32.0, Red Cell Distribution Width 15.3 H, Calcium Level 9.1 Vital Signs Date Time Temp Pulse Resp B/P (MAP) Pulse Ox O2 Delivery O2 Flow Rate FiO2 02/26/18 12:00 97.8 93 18 117/56 (76) 95 02/26/18 06:09 Room Air 02/20/18 18:00 2.0 I&O- Last 24 Hours up to 6 AM 02/26/18 06:00 Intake Total 1210 ml Output Total 1300 ml Balance -90 ml GEORGIA DENIS DO Feb 26, 2018 16:18
[2018-02-26 18:00] VITALS: BP 137/57
[2018-02-26] MEDS: ATORVASTATIN 20 MG TAB PO SCH (20:45)
[2018-02-26 22:00] VITALS: BP 157/71
[2018-02-27] VITALS (10 sets, daily range): BP systolic 141–198; BP diastolic 67–87
[2018-02-27] MEDS: IPRATROPIUM 0.5MG/ALBUTEROL 2.5MG INH SOL UD 3ML (DUONEB)(J7620) NEB SCH ×4 (01:02→19:34)
[2018-02-27] MEDS: oxyCODONE 5MG TAB PO PRN ×2 (04:15→21:34)
[2018-02-27] MEDS: ALPRAZolam 0.5 MG TAB PO PRN ×2 (06:03→12:04)
[2018-02-27] MEDS: LEVOTHYROXINE 75MCG TABLET (0.075MG) PO SCH (06:03)
[2018-02-27] MEDS: **hydrALAZINE** 50 MG TAB PO SCH ×2 (06:28→21:32)
[2018-02-27] MEDS: amLODIPine 10 MG TAB PO SCH (06:29)
[2018-02-27 07:03] LABS: HEMATOCRIT 32.5 % (36.0-47.0); HEMOGLOBIN 10.4 g/dl (12.0-15.5); MEAN CORPUSCULAR HEMOGLOBIN 28.1 pg (27.0-33.0); MEAN CORPUSCULAR VOLUME 87.8 fl (80.0-96.0); PLATELET COUNT, AUTOMATED 184 10^3/uL (150-450); WHITE BLOOD COUNT 12.5 10^3/uL (4.0-10.0)
[2018-02-27 07:16] LABS: CALCIUM LEVEL 8.6 MG/DL (8.8-10.2); CREATININE FOR GFR 1.06 MG/DL (0.55-1.30); GLOMERULAR FILTRATION RATE 54.2 (>39); POTASSIUM SERUM 4.8 MEQ/L (3.5-5.1)
[2018-02-27] MEDS: LEVEMIR (INSULIN DETEMIR) 1 UNITS/0.01ML SC SCH (08:30)
[2018-02-27] MEDS: HumaLOG INSULIN (NovoLOG) PER UNIT SC SCH ×3 (08:31→16:54)
[2018-02-27] MEDS: HEPARIN SOD (PORCINE) 5000 UNITS/ML VIAL SC SCH ×4 (08:31→21:33)
[2018-02-27] MEDS: OMEPRAZOLE 20 MG CAP PO SCH (08:31)
[2018-02-27] MEDS: VITAMIN D 1,000 INTERNATIONAL UNITS TABLET PO SCH (08:32)
[2018-02-27] MEDS: ANEXSIA, NORCO 7.5MG/325MG TABLET(HYDROCODONE/APAP) PO PRN (08:33)
[2018-02-27] MEDS: SENNA 8.6 MG TAB (SENOKOT) PO SCH ×2 (08:33→21:32)
[2018-02-27] MEDS: SERTRALINE HCL 50 MG TAB PO SCH (08:33)
[2018-02-27] MEDS: ASPIRIN 81 MG CHEW TABLET PO SCH (08:33)
[2018-02-27] MEDS: CLOPIDOGREL 75 MG TAB PO SCH (08:33)
[2018-02-27] MEDS: LISINOPRIL 20 MG TAB PO SCH (08:34)
[2018-02-27] MEDS: predniSONE 10 MG TAB PO SCH (08:34)
[2018-02-27] MEDS: GABAPENTIN 300 MG CAP PO PRN (08:34)
[2018-02-27] MEDS: CYANOCOBALAMIN 500 MCG TAB PO SCH (08:38)
[2018-02-27] MEDS ORDERED: LISI40TA PO (08:58)
[2018-02-27] MEDS ORDERED: NS 1,000 ML IV SCH (10:43)
[2018-02-27] MEDS ORDERED: MIDAZOLAM INJ 2 MG/2 ML VIAL (J2250) As Ordered ONE (13:49)
[2018-02-27] MEDS ORDERED: fentaNYL 100 MCG/2 ML INJECTION (J3010) As Ordered ONE (13:49)
[2018-02-27] MEDS ORDERED: HEPARIN 1,000 UNITS/ML 10ML VIAL (FOR RADIOLOGY& DIALYSIS ONLY) As Ordered ONE (13:49)
[2018-02-27] MEDS ORDERED: ISOVUE-300 61% 50ML VIAL (Q9967) As Ordered ONE (13:50)
[2018-02-27] MEDS ORDERED: LIDOCAINE 2% MDV 20 ML VIAL As Ordered ONE (13:50)
--- NOTE | 2018-02-27 15:03 | IPNPDOC ---
Text Note Date of Service The patient was seen on 02/27/18. NOTE SUBJECTIVE: Patient is seen and examined in the room today. Patient has had acute flare of pain since 3AM this morning. She did not feel the pain injection was working and her normal pain medication regimen has not helped to control her pain. OBJECTIVE: VITAL SIGNS: Listed below. GENERAL: Moderate to severe distress. Patient is alert and awake. HEENT: Normocephalic, atraumatic. Extraocular motors grossly intact. CARDIOVASCULAR: Positive S1, S2, regular rate. LUNGS: Clear to auscultation bilaterally. ABDOMEN: Soft, bowel sound present. EXTREMITIES: No edema. LABORATORY DATA: Listed below. ASSESSMENT AND PLAN: #. Acute on chronic pain. - MRI of the lumbar spine demonstrates patient has severe central canal stenosis and there is compression of right L4 nerve in the neural foramen. - Pain management consulted and Orthopaedic team also consulted. On her home pain medication regimen. - Trigger point injection on 02/25/18. - There is acute exacerbation to her pain. Her images reviewed with radiology. Previous images suggest patient has significant vascular disease. There are changes to right kidney and gastric vasculatures. Dr. Juarez consulted. Patient may benefit from angiogram for further evaluations. #. Hypertensive urgency. - On admission, patient had blood pressure, highest, of 254/116. Currently, patient is on amlodipine, hydralazine, lisinopril. #. Diabetes. - On insulin and consistent carbohydrate diet. - Patient has been on tapering steroid. Patient just had trigger point injection yesterday. Will monitor glucose closely. #. Chronic obstructive pulmonary disease (COPD) exacerbation. Improved. Patient is on her baseline steroid. #. Peripheral artery disease status post right lower extremity angioplasty with stenting by Dr. Juarez in the past. Currently, on aspirin, Plavix, and statin. #. Chronic kidney disease stage III. Continue to monitor renal function. #. Anxiety/depression. On Zoloft. #. Hypothyroidism, on Synthroid. #. Deep venous thrombosis (DVT) prophylaxis. Heparin ordered. VS,Fishbone, I+O VS, Fishbone, I+O Laboratory Tests 02/27/18 06:04 Red Blood Count 3.70 L, Mean Corpuscular Volume 87.8, Mean Corpuscular Hemoglobin 28.1, Mean Corpuscular Hemoglobin Concent 32.0, Red Cell Distribution Width 15.5 H, Calcium Level 8.6 L Vital Signs Date Time Temp Pulse Resp B/P (MAP) Pulse Ox O2 Delivery O2 Flow Rate FiO2 02/27/18 14:00 97.4 72 18 157/70 (99) 89 Room Air I&O- Last 24 Hours up to 6 AM 02/27/18 06:00 Intake Total 1090 ml Output Total 1850 ml Balance -760 ml GEORGIA DENIS DO Feb 27, 2018 15:03
[2018-02-27] MEDS ORDERED: D5W/0.9% SODIUM CHLORIDE 1,000 ML IV SCH (19:00)
[2018-02-27] MEDS: ATORVASTATIN 20 MG TAB PO SCH (21:32)
[2018-02-28] MEDS: ANEXSIA, NORCO 7.5MG/325MG TABLET(HYDROCODONE/APAP) PO PRN (01:33)
[2018-02-28 02:00] VITALS: BP 136/63
[2018-02-28] MEDS: IPRATROPIUM 0.5MG/ALBUTEROL 2.5MG INH SOL UD 3ML (DUONEB)(J7620) NEB SCH ×3 (02:00→13:43)
[2018-02-28 05:46] LABS: HEMOGLOBIN 9.9 g/dl (12.0-15.5); MEAN CORPUSCULAR HEMOGLOBIN 27.5 pg (27.0-33.0); MEAN CORPUSCULAR HGB CONC 30.9 g/dl (32.0-36.5); MEAN CORPUSCULAR VOLUME 88.9 fl (80.0-96.0); PLATELET COUNT, AUTOMATED 180 10^3/uL (150-450); WHITE BLOOD COUNT 13.5 10^3/uL (4.0-10.0)
[2018-02-28 06:00] VITALS: BP 142/66
[2018-02-28] MEDS: LEVOTHYROXINE 75MCG TABLET (0.075MG) PO SCH (06:03)
[2018-02-28 06:08] LABS: CALCIUM LEVEL 7.9 MG/DL (8.8-10.2); CREATININE FOR GFR 1.04 MG/DL (0.55-1.30); GLOMERULAR FILTRATION RATE 55.5 (>39); POTASSIUM SERUM 4.2 MEQ/L (3.5-5.1)
[2018-02-28] MEDS: LEVEMIR (INSULIN DETEMIR) 1 UNITS/0.01ML SC SCH (08:27)
[2018-02-28] MEDS: HumaLOG INSULIN (NovoLOG) PER UNIT SC SCH ×2 (08:27→12:00)
[2018-02-28] MEDS: ASPIRIN 81 MG CHEW TABLET PO SCH (08:28)
[2018-02-28] MEDS: CLOPIDOGREL 75 MG TAB PO SCH (08:28)
[2018-02-28] MEDS: **hydrALAZINE** 50 MG TAB PO SCH (08:28)
[2018-02-28] MEDS: ALPRAZolam 0.5 MG TAB PO PRN (08:28)
[2018-02-28] MEDS: LISINOPRIL 20 MG TAB PO SCH (08:28)
[2018-02-28 08:29] VITALS: BP 142/66
[2018-02-28] MEDS: predniSONE 10 MG TAB PO SCH (08:29)
[2018-02-28] MEDS: VITAMIN D 1,000 INTERNATIONAL UNITS TABLET PO SCH (08:29)
[2018-02-28] MEDS: OMEPRAZOLE 20 MG CAP PO SCH (08:29)
[2018-02-28] MEDS: amLODIPine 10 MG TAB PO SCH (08:29)
[2018-02-28] MEDS: SERTRALINE HCL 50 MG TAB PO SCH (08:29)
[2018-02-28] MEDS: SENNA 8.6 MG TAB (SENOKOT) PO SCH (08:29)
[2018-02-28] MEDS: oxyCODONE 5MG TAB PO PRN ×3 (08:31→15:53)
[2018-02-28] MEDS: HEPARIN SOD (PORCINE) 5000 UNITS/ML VIAL SC SCH (08:31)
[2018-02-28] MEDS: CYANOCOBALAMIN 500 MCG TAB PO SCH (08:31)
[2018-02-28 10:00] VITALS: BP 111/58
[2018-02-28 14:00] VITALS: BP 160/70
--- NOTE | 2018-03-02 11:13 | DSES ---
DATE OF ADMISSION: 02/18/2018 DATE OF DISCHARGE: 02/28/2018 PRIMARY CARE PROVIDER: Courtney Foreman DO CONSULTANTS: Orthopedic surgery. Pain management. Vascular surgery. PROCEDURES: Trigger point injection by pain management. Angiogram by vascular surgery. DISCHARGE DIAGNOSES: 1. Acute on chronic pain. 2. Right L4 compression. 3. Right infarct of kidney. 4. Hypertensive urgency. 5. Diabetes. 6. Chronic obstructive pulmonary disease (COPD) exacerbation. 7. Peripheral vascular disease status post right lower extremity angioplasty with stenting. 8. Chronic kidney disease stage III. 9. Anxiety/depression. 10. Hypothyroidism. 11. Diabetes. HOSPITALIZATION COURSE: Patient is a 72-year-old female who presented to [facility] on 02/18/2018 with a chief complaint of shortness of breath. The patient was admitted under the hospitalist service for hypertensive urgency/emergency, and possible COPD exacerbation. In the emergency room, patient was found to have a systolic blood pressure of 230s to 240s and blood pressure improved with IV blood pressure medications. The patient's blood pressure medications have been adjusted. The patient was started on steroids and antibiotics for COPD exacerbation. Smoking cessation is discussed with the patient. The patient was found to have an elevated troponin most likely secondary to increased demand, complicated by the acute kidney injury. Later complained about right sided pain. Earlier the patient reports some type of abdominal pain that was contributed to possible constipation and workup was initiated. Bowel regimen was ordered. Initially, KUB and CT of the abdomen and pelvis did not show any abnormalities and MRI of the lumbar spine was ordered. The patient was found to have right sided L4 nerve compression, and orthopedic surgery and pain management were consulted. The patient had a trigger point injection on February 25, 2018. Initially the patient stated the pain showed some control and the patient's glucose was followed closely due stated history of severe hyperglycemia after steroid injections. The patient's glucose level maintained stable range, however, later the patient started having another acute flare of the right sided back pain. The patient's old images were reviewed with radiology for a second opinion. The patient was also noted to have severe vascular calcification and there is a concern for vascular ischemia. Patient also noted to have right upper kidney infarctions. Vascular contacted and angiogram was arranged. It was determined there was no intervention available for the patient. Advised pain control. Long discussion again with the patient regarding to her long smoking history and its adverse affect to the vasculature. On February 28, 2018 the patient was determined stable for discharge with recommendation to follow-up with primary care provider in one week. Patient should also follow-up with the pain clinic in one week. Patient also should follow-up with vascular surgery, Dr. Juarez, in 1-2 weeks. The patient should also follow-up with Dr. Juarez for possible abdominal ultrasound for the vascular evaluation. VITAL SIGNS ON DISCHARGE: Temperature 98.6, pulse 89, respirations 16, blood pressure 160/70, pulse oximetry 91% in room air. LABORATORY DATA: Showed WBC 13.5, hemoglobin 9.9, hematocrit 32, platelet count is 180. Sodium is 139, potassium 4.2, chloride 107, carbon dioxide 26, BUN 25, creatinine 1.04, GFR 55.5, fasting glucose 247, calcium 7.9. Microbiology: Blood cultures from 02/18/2018 showed no growth after five days times two sets. Respiratory panel was negative. 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 Ill defined ground glass opacity right middle lobe, which is unchanged from 01/16/[address] evidence of pulmonary embolus. Atherosclerotic vascular calcification. Right renal atrophy is noted. CT abdomen and pelvis without contrast on 02/18/2018 showed no acute abnormalities detected. Right renal atrophy and right renal cyst. No free fluid or free air. No evidence of appendicitis or hydroureteronephrosis. Right foot x-ray on 02/18/2018 showed generalized osteopenia with degenerative changes. Renal ultrasound on 02/20/2018 showed quite limited exam. No Doppler evidence of suggest renal artery stenosis but visualization was incomplete. Abdominal x-ray on 02/22/2018 showed normal gas pattern. Arterial stent in the common iliac arteries bilaterally. Gallbladder ultrasound 02/23/2018 showed right renal atrophy. Small polyps in the gallbladder. MRI of thoracic spine without contrast showed smooth disc protrusion in the T5-T6, T9-10 levels without spinal cord compression. Disc bulging T8-10 level without spinal cord compression. The spinal cord is small in size consistent with myelomalacia. MRI of the lumbar spine without contrast on 02/23/2018 demonstrated severe central canal stenosis at L4-5 level secondary to disc bulge, ligamentous and facet hypertrophy and grade 1 spondylolisthesis. There is compression of the right L4 nerve in the neuroforamen. DISCHARGE MEDICATIONS: - amlodipine 10 mg by mouth daily - hydralazine 50 mg one tablet by mouth twice a day - lisinopril 40 mg by mouth daily - ProAir two puffs inhalation four times a day as needed - alprazolam 0.5 mg by mouth every 6 hours as needed for anxiety - Anoro Ellipta one inhalation daily - aspirin 81 mg by mouth daily - atorvastatin 40 mg at bedtime - vitamin D3 1000 units by mouth daily - Plavix 75 mg by mouth daily - vitamin B12 1000 mcg by mouth daily - gabapentin 600 mg by mouth three times a day as needed for muscle spasm - hydrocodone/acetaminophen 7.5/325 one tablet by mouth every 6 hours as needed - Lantus 40 units subcu daily - levothyroxine 75 mcg by mouth daily - omeprazole 40 mg by mouth daily - OxyContin 15 mg by mouth twice a day as needed - prednisone 10 mg by mouth daily - sertraline 50 mg by mouth daily DISCHARGE INSTRUCTIONS: Discontinue lines. Discharge home. ACTIVITY: As tolerated. DIET: Consistent carbohydrate diet as tolerated. Patient should follow-up with primary care provider, Dr. Courtney Foreman, in one week. Patient should also follow-up with the pain clinic in one week. Patient should also follow-up with vascular surgery, Dr. Juarez's office, in 1-2 weeks. Patient did demonstrate significant vascular disease and smoking cessation was discussed with the patient multiple times during his hospitalization. Patient had a vascular stent placed before. The patient's right kidney atrophy from renal artery stenosis, is most likely secondary to severe vascular calcification. Patient is recommended to follow-up with vascular surgery at the scheduled time. DISCHARGE CONDITION: Fair. Discharge took greater than 30 minutes. edited: 03/03/2018 0727 pedro DORSEY
--- NOTE | 2018-03-06 07:35 | REPIR ---
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 Tobacco use with history of smoking of cigarettes, chronic obstructive pulmonary disease (COPD). 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 Tobacco use with history of smoking of cigarettes, chronic obstructive pulmonary disease (COPD). PROCEDURE: Abdominal aortogram, pelvic aortogram with iliofemoral angiography, MYNX closure of the right common femoral arteriotomy. SURGEON: Dr. Albania Juarez. DOLL DRESSER: Iris Mckeon. ANESTHESIA: Local with 10 mL of 2% lidocaine. FLUORO TIME: 0.4 minutes. CONTRAST: 6 mL of Isovue-300. COMPLICATIONS: None. DRAINS: None. SPECIMENS: None. IMPLANTS: Right femoral arteriotomy closure with a MYNX closure device. INDICATION: The patient is a 72-year-old female who presented to the hospital and was admitted with extensive right flank pain who underwent a CT of the chest which showed severe atherosclerotic occlusive disease in her aorta as well as possible infarct in right kidney in the upper pole. The patient has a known history of atherosclerotic aortoiliac disease with and required bilateral iliac artery angioplasty and stenting as well as a known history of superficial femoral arterial occlusion bilaterally. The patient will now undergo an angiogram with possible renal artery angioplasty stenting and/or atherectomy. The procedure was described and explained to the patient in detail including drawing of pictures demonstrating the procedure and pertinent anatomy. Risks, benefits and alternative options were discussed with the patient. Alternative options included but were not limited to no intervention. Benefits included but were not limited to possible improved blood flow to the kidney and preservation of renal function and kidney parenchyma. Risks included but were not limited to infection, bleeding, worsening renal function requiring hemodialysis, possible need for open surgical intervention, retroperitoneal hematoma, injury to the renal artery requiring surgical repair and/or bypass grafting, adverse reaction to the prepping and draping materials, adverse reaction to the anesthetic and sedation medications possible need for transfusion of blood products, loss of limb, loss of life, cerebrovascular accident, myocardial infarction pulmonary embolus, deep venous thrombosis (DVT), poor outcome, poor satisfaction and poor results. The patient voices understanding and acceptance of these risks, benefits and alternative options and consents to proceed with aortogram with possible renal artery angioplasty stenting and/or atherectomy. All the patient's questions were answered. There were no promises or guarantees made to the patient regarding the procedure results and/or outcome. PROCEDURE: The patient was taken to the angiography suite, placed on the angiography room table and prepped and draped in a standard surgical fashion. The right common femoral artery was cannulated with a micropuncture needle after anesthetizing the overlying skin with 2% lidocaine. The micropuncture wire was advanced to the micropuncture needle which was upsized to a micropuncture sheath. A Bentson wire was advanced to the micropuncture sheath which was upsized to a 5-Argentine sheath. The Omni flush catheter was advanced over the right Bentson wire and placed in the aorta and an aortogram was performed. Catheter was pulled down level of bifurcation of the iliac arteries and a pelvic aortogram with iliofemoral angiography was performed. The catheter was then removed over the Bentson wire and a MYNX closure right used close the arteriotomy in the right common femoral artery with an additional 10 minutes of adjunctive pressure applied for hemostasis. Dressings were then applied. The patient tolerated the procedure well. All instrument, sponge, needle counts were correct at the end of case. There were no complications. Dr. Juarez was present for and directed the entire case. The patient was transferred to the holding area and subsequent to the floor in stable condition. The results finding outcome of the procedure were discussed with the patient with all her questions being answered. The patient's son was notified by phone of the results, findings and outcome. RADIOLOGY SUPERVISION INTERPRETATION: Aortogram showed severe atherosclerotic arterial occlusive disease in the aorta. The left renal artery showed atherosclerotic occlusive disease but no significant stenosis or occlusion. The right renal artery showed two renal arteries and a small inferior pole artery filling the inferior portion of the kidney. The right main renal artery was occluded and there was severe calcific atherosclerotic occlusive disease in the main right renal artery as well as extending into the secondary and tertiary branches with no filling of the upper two-thirds of the right kidney. No attempts were made to recanalized or stent the main right renal artery as there was no filling of the right kidney and severe atherosclerotic occlusive disease with prolonged ischemia time to the right upper pole of the kidney. The iliofemoral angiogram showed the common iliac artery stent be widely patent with good filling of the external and internal iliac arteries bilaterally. There was no visualization below the puncture wound in the right common femoral artery. The common femoral arteries were noted to be patent bilaterally. There was no visualization of lower than the common femoral arteries. The MYNX closure device was used to close the arteriotomy in the right common femoral artery with an additional 10 minutes adjunctive pressure applied for hemostasis.
== END 2018-02-28 16:50 | disposition home or self-care (01) | DRG 191 ==
LOC: M ED 09:05 → EDBD 09:05 → M ED INP 16:52 → EEVIPCON 16:52 → M MSPAV 18:48
PROVIDERS: ADMIT Internal Medicine; ATTEND Internal Medicine
PROC: 3E0233Z Introduction of Anti-inflammatory into Muscle, Percutaneous Approach (ICD-10-PCS; principal; 2018-02-25)
PROC: B400YZZ Plain Radiography of Abdominal Aorta using Other Contrast (ICD-10-PCS; 2018-02-27)
PROC: B40CYZZ Plain Radiography of Pelvic Arteries using Other Contrast (ICD-10-PCS; 2018-02-27)
PROC: B40FYZZ Plain Radiography of Right Lower Extremity Arteries using Other Contrast (ICD-10-PCS; 2018-02-27)
DX: J44.1 Chronic obstructive pulmonary disease with (acute) exacerbation (principal); J96.11 Chronic respiratory failure with hypoxia; N17.9 Acute kidney failure, unspecified; N28.0 Ischemia and infarction of kidney; I16.0 Hypertensive urgency; I12.9 Hypertensive chronic kidney disease with stage 1 through stage 4 chronic kidney disease, or unspecified chronic kidney disease; E78.5 Hyperlipidemia, unspecified; E11.51 Type 2 diabetes mellitus with diabetic peripheral angiopathy without gangrene; E03.9 Hypothyroidism, unspecified; F41.9 Anxiety disorder, unspecified; E11.22 Type 2 diabetes mellitus with diabetic chronic kidney disease; E11.42 Type 2 diabetes mellitus with diabetic polyneuropathy; F17.210 Nicotine dependence, cigarettes, uncomplicated; K59.00 Constipation, unspecified; M48.061 Spinal stenosis, lumbar region without neurogenic claudication; I70.0 Atherosclerosis of aorta; N18.3 Chronic kidney disease, stage 3 (moderate); F32.9 Major depressive disorder, single episode, unspecified; Z79.82 Long term (current) use of aspirin; Z79.4 Long term (current) use of insulin; Z79.52 Long term (current) use of systemic steroids; Z79.02 Long term (current) use of antithrombotics/antiplatelets; Z79.899 Other long term (current) drug therapy; Z88.6 Allergy status to analgesic agent; Z99.81 Dependence on supplemental oxygen; Z91.14 Patient's other noncompliance with medication regimen; Z88.1 Allergy status to other antibiotic agents; Z88.2 Allergy status to sulfonamides; Z88.5 Allergy status to narcotic agent; Z88.8 Allergy status to other drugs, medicaments and biological substances; Z91.048 Other nonmedicinal substance allergy status; Z95.820 Peripheral vascular angioplasty status with implants and grafts; Z85.51 Personal history of malignant neoplasm of bladder

== ENCOUNTER → 2018-04-01 | Outpatient (REF) | payer MEDICARE ==
[~2018-04-01] MED LIST changes: +HYDR-3911 PO; +LISI-538 PO; +LISI40TA PO; +OMEP-221 PO; +OXYC15TA76 PO; +SERT50TA PO; +VITA-182 PO; +VITA10002 PO
== END ==
LOC: M LAB REF 16:57
PROVIDERS: ATTEND Physician Assistant
DX: N39.0 Urinary tract infection, site not specified (principal)

== ENCOUNTER → 2018-04-23 | Outpatient (CLI) | payer MEDICARE ==
--- NOTE | 2018-05-06 00:11 | ECWPNPC ---
PATIENT NAME: ELA LIVINGSTON : 1945 GENDER: FEMALE VISIT DATE: 04/23/2018 DISCHARGE DATE: 04/23/18 1529 VISIT LOCKED DATE TIME: PHYSICIAN: MINISTERIO MASTERSON MD RESOURCE: MINISTERIO MASTERSON MD REASON FOR APPOINTMENT 1. NPC BACK PAIN- F/U IN PATIENT PROCEDURE HISTORY OF PRESENT ILLNESS FALL RISK SCREENING: SCREENING : NO FALLS IN THE PAST YEAR. PAIN SCREENING: PATIENT HAS A COMPLAINT OF ACUTE OR CHRONIC PAIN :YES 72 YEAR OLD FEMALE PATIENT WITH A HISTORY OF CHRONIC LOW BACK AND THORACIC PAIN. THE PATIENT DESCRIBES THE PAIN SHARP, STABBING, AND INTERMITTENT WITH A PAIN SCORE OF 5-10/10 DEPENDING ON PHYSICAL ACTIVITY. THE PATIENT RECEIVED A TRIGGER POINT INJECTION IN THE THORACIC AREA AN INPATIENT ON 02/25/2018 AND REPORTS HAVING SIGNIFICANT PAIN RELIEF. THE PATIENT SAYS HER PAIN IS NOW IN HER LOW BACK AND TAILBONE AREA. PATIENT DENIES UNEXPLAINABLE WEIGHT LOSS, FEVER, CHILLS, NEW CHANGES ON HER URINARY OR BOWEL CONTROL. CURRENT MEDICATIONS TAKING ATORVASTATIN CALCIUM 20 MG TABLET 2 STABLET ORALLY ONCE A DAY TAKING LEVOTHYROXINE SODIUM 75 MCG TABLET 1 TAB ORALLY DAILY TAKING GABAPENTIN 600 MG TABLET 1 CAP ORALLY BID TAKING ANORO ELLIPTA 62.5-25 MCG/INH AEROSOL POWDER BREATH ACTIVATED 1 PUFF INHALATION DAILY TAKING PROAIR HFA 108 (90 BASE) MCG/ACT AEROSOL SOLUTION 2 PUFFS NEEDED INHALATION EVERY 6 HOURS NEEDED TAKING ALBUTEROL SULFATE (2.5 MG/3ML) 0.083% NEBULIZATION SOLUTION 3 ML INHALATION THREE TIMES A DAY TAKING BREO ELLIPTA 200-25 MCG/INH AEROSOL POWDER BREATH ACTIVATED 1 PUFF INHALATION ONCE A DAY TAKING SERTRALINE HCL 100 MG TABLET 1 TABLET ORALLY DAILY TAKING TRAMADOL HCL 50 MG TABLET 1 TABLET NEEDED ORALLY EVERY 6 HRS NOT-TAKING HYDROCODONE-ACETAMINOPHEN 5-325 MG TABLET 2 TABLET ORALLY FOUR TIMES DAILY NOT-TAKING CLINDAMYCIN HCL 300 MG CAPSULE 1 CAPSULE ORALLY FOUR TIMES DAILY NOT-TAKING ASPIRIN 81 MG TABLET DELAYED RELEASE 1 TABLET ORALLY DAILY NOT-TAKING METFORMIN HCL 1000 MG TABLET 1 TABLET WITH MEALS ORALLY TWICE A DAY NOT-TAKING CIPRO 500 MG TABLET 1 TABLET 1 HOUR PRIOR TO YOUR CYSTOSCOPY ORALLY DIRECTED NOT-TAKING MACROBID 100 MG CAPSULE 1 CAPSULE WITH FOOD ORALLY EVERY 12 HRS NOT-TAKING LIDOCAINE HCL JELLY SENIOR CARE 2 % JELLY 1 APPLICATION TO AFFECTED AREA NEEDED INTRAVESICALLY PRIOR TO CYSTOSCOPY IN OFFICE NOT-TAKING SALLY ASPIRIN EXTRA STRENGTH 500 MG TABLET 1 TABLET NEEDED ORALLY ONCE DAILY NOT-TAKING INVOKANA 300 MG TABLET 1 TABLET ORALLY ONCE A DAY NOT-TAKING GLIPIZIDE 10 MG TABLET 1 TABLET ORALLY BID NOT-TAKING IRON 325 (65 FE) MG TABLET 1 TABLET ORALLY BID NOT-TAKING ADVAIR DISKUS 250-50 MCG/DOSE AEROSOL POWDER BREATH ACTIVATED 1 PUFF INHALATION DAILY NOT-TAKING CIPRO 500 MG TABLET 1 TABLET ORALLY TWICE A DAY NOT-TAKING VITAMIN D3 5000 UNIT CAPSULE 1 CAPSULE ORALLY WEEKLY MEDICATION LIST REVIEWED AND RECONCILED WITH THE PATIENT PAST MEDICAL HISTORY HTN EMPHYSEMA ANEMIA FATIGUE VITAMIN B 12 DEFICIENCY VITAMIN D DEFICIENCY NIDDM DEPRESSION ANXIETY CHF RIGHT LUNG UPPER LOBE MASS ALLERGIES BACITRACIN SULFAMETHOXAZOLE TRIMETHOPRIM FLUOXETINE POLYMYXIN B SULFATE RED DYE ADHESIVE TAPE SURGICAL HISTORY HYSTERECTOMY VAGINAL TUMOR REMOVAL 2015 BILAT LEG STENTS PLACED BY DR KENAN LENZ CIRCULATION LUNG MASS REMOVED 2017 FAMILY HISTORY FATHER: 76 YRS, DIAGNOSED WITH STROKE MOTHER: 74 YRS, CO, DIABETES 2 BROTHER(S) , 3 SISTER(S) . 3 SON(S) . MOTHER WITH EMPHYSEMA, HEART DISEASE. 1 SISTER WITH ALZHEIMER'S. ALL SIBLINGS HAVE DIABETES. 1 SON OF COLON CANCER. SOCIAL HISTORY GENERAL: TOBACCO USE ARE YOU A:CURRENT SMOKER ARE YOU INTERESTED IN QUITTING?THINKING ABOUT QUITTING COUNSELED THE PATIENT ON SMOKING CESSATION, EDUCATION [id number]/14/2019 HOW MANY CIGARETTES A DAY DO YOU SMOKE?6-10 PATIENT COUNSELED ON THE DANGERS OF TOBACCO USE AND URGED TO QUIT:09/20/2016 ADDITIONAL FINDINGS: TOBACCO USERMODERATE CIGARETTE SMOKER (10-19 CIGS/DAY) SMOKING CESSATION INFORMATION GIVEN SMOKING CESSATION CLASSES OFFERED TO PT VAPORNO E-CIGARETTENO LUNG CANCER SCREENING SMOKING STATUS:CURRENT SMOKER ALCOHOL SCREENING DID YOU HAVE A DRINK CONTAINING ALCOHOL IN THE PAST YEAR?NO POINTS0 INTERPRETATIONNEGATIVE RECREATIONAL DRUG USE HOW OFTEN AND HOW MUCH? 2 TIMES PER WEEK ( MARIJ[place]) DRUG USE?YES CAFFEINE CAFFEINE USE?YES HOW OFTEN AND HOW MUCH? 4 CUPS COFFEE PER DAY SEXUAL HX HAD SEX IN THE LAST 12 MONTHS (VAGINAL, ORAL, OR ANAL)?NO HAVE YOU EVER HAD AN STD?NO LMP:HYSTERECTOY GNOSTICISM GNOSTICISM NO UATSDIN BELIEFS THAT WOULD IMPACT HEALTH CARE. LANGUAGE LANGUAGES SPOKEN:BULGARIAN EDUCATION LEVEL OF EDUCATION:NOT FINISHED HIGH SCHOOL LEARNING BARRIERS / SPECIAL NEEDS CHANGE FROM LAST VISIT?NO BARRIERS TO LEARNING?NO HEARING IMPAIRED?NO VISION IMPAIRED?YES :CORRECTIVE LENSES FOR READING COGNITIVELY IMPAIRED?NO READINESS TO LEARN?YES LEARNING PREFERENCES?YES :HANDOUTS, DEMONSTRATION/VERBAL INSTRUCTION, OTHER (PLEASE COMMENT) LEARNING CAPABILITIES PRESENT?YES EMOTIONAL BARRIERS?YES DEPRESSION AND ANXIETY COMMENTSDOCUMENTED IN NOTES SECTION> VERBAL SPECIAL DEVICES?YES :WALKER DIRECTOR OF PROVIDER RELATIONS NEEDED?NO EXERCISE: NONE. MARITAL STATUS: ., . OTHERS AT HOME: NONE. PAIN CLINIC PFS, CLERGY, PUBLIC HEALTH REFERRALS PFS REFERRAL NEEDED?NO CLERGY REFERRAL NEEDED?NO PUBLIC HEALTH REFERRAL NEEDED?NO WAS THE PROVIDER NOTIFIED OF ANY PERTINENT INFO?NO HAS THE PATIENT BEEN EDUCATED REGARDING HIS/HER PLAN OF CARE?YES HAS THE PATIENT BEEN EDUCATED REGARDING PAIN, THE RISK FOR PAIN, THE IMPORTANCE OF EFFECTIVE PAIN MANAGEMENT, AND THE PAIN ASSESSMENT PROCESS?YES HOUSING: RENTS APARTMENT. ADVANCE DIRECTIVE ADVANCE DIRECTIVE DISCUSSED WITH PATIENT:YES PAM ESCAMILLA, SON [phone] HOSPITALIZATION/MAJOR DIAGNOSTIC PROCEDURE PNEUMONIA X1 WEEK [facility] 10/05/15 PNEUMONIA X 2WEEKS AT [facility] 10/2015 SURGERY RELATED CHILD REVIEW OF SYSTEMS REVIEWED BY: PROVIDER: MINISTERIO MASTERSON MD . CONSTITUTIONAL: ANY CHANGE IN YOUR MEDICAL CONDITION? NO . CHILLS NO . FEVER NO . INFECTION: DO YOU HAVE NEW INFECTIONS? YES, UTI TX'D W ABX, ALL BETTER . DO YOU HAVE HISTORY OF MRSA? NO . MUSCULOSKELETAL: ANY NEW PATTERNS OF PAIN OR NUMBNESS? NO . SYTEMIC LUPUS NO . GASTROENTEROLOGY: ANY NEW CHANGE IN BOWEL CONTROL? NO . BARRETTS ESOPHAGUS NO . CIRRHOSIS NO . HEPATITIS NO . LIVER FAILURE NO . ACID REFLUX NO . UNEXPLAINED WEIGHT LOSS NO . GENITOURINARY: ANY NEW CHANGE IN BLADDER CONTROL? NO, UTI RESOLVED . IS THERE A CHANCE YOU COULD BE ? NO . HEMATOLOGY/LYMPH: DO YOU TAKE ANY BLOOD THINNERS? (FOR EXAMPLE- COUMADIN, PLAVIX, AGGRENOX, PLATEL, PRADAXA, OR XARELTO) YES, UNSURE OF MED OR DOSE . WHEN WAS YOUR LAST DOSE? DATE: TIME: . LOW PLATELET COUNT NO . SICKLE CELL DISEASE NO . VON WILLIEBRANDS NO . FACTOR V LEIDEN NO . THALLASEMIA NO . ANEMIA NO . EASY BRUISING NO . NEUROLOGY: HAVE YOU FALLEN IN THE PAST 12 MONTHS? YES, I FELL SO LONG AGO I CAN'T REMEMBER, MAYBE FALL 2018 . ANY NEW EXTREMITY NUMBNESS OR WEAKNESS? NO . HEAD INJURY NO . DEMENTIA NO . CEREBRAL PALSY NO . MULTIPLE SCLEROSIS NO . DIZZINESS NO . HEADACHE NO . STROKES NO . VERTIGO NO . CARDIOLOGY: DO YOU HAVE A PACEMAKER OR DEFIBRILLATOR? NO, BILAT LEG STENTS PLACED FOR CIRCULATION . ANGINA NO . HEART ATTACK NO . HEART SURGERY NO . CONGESTIVE HEART FAILURE/FLUID OVERLOAD NO . CHEST PAIN NO . HIGH BLOOD PRESSURE HTN, ON MEDICATION(S), CAN'T REMEMBER NAMES . IRREGULAR HEART BEAT NO . RESPIRATORY: HAVE YOU BEEN SICK IN THE PAST WEEK? NO . FEVER NO . FLU LIKE SYMPTOMS? NO . CPAP NO . BYPAP NO . ASTHMA NO . EMPHYSEMA NO . CHRONIC LUNG DISEASES YES, EMPHYSEMA . SHORTNESS OF BREATH ON EXERTION NO . COUGH NO . SNORING NO . INTEGUMENTARY: DO YOU HAVE ANY RASHES OR OPEN SORES? NO . ALLERGIC/IMMUNO: ARE YOU ALLERGIC TO IV DYE? NO . ANY NEW ALLERGIES? NO . PSYCHIATRIC: DO YOU HAVE THOUGHTS OF HURTING YOURSELF OR SOMEONE ELSE? NO . ARE YOU ABUSED, NEGLECTED, OR IN AN UNSAFE ENVIRONMENT? NO . ENDOCRINOLOGY: ARE YOU DIABETIC? YES . THYROID DISORDER HYPOTHYROID, YES . OTHER: DO YOU NEED ANY PRESCRIPTIONS? YES, OXYCODONE, HYDROCODONE . IF YES, PLEASE LIST: ____ . ANY NEW PROBLEMS WITH YOUR MEDICATIONS? NO . WHEN DID YOU LAST EAT? ____ . WHEN DID YOU LAST DRINK? ____ . WHAT DID YOU LAST DRINK? ____ . NAME OF PERSON DRIVING YOU HOME? ____ . DO YOU HAVE ANY OTHER QUESTIONS OR CONCERNS NO . VITAL SIGNS WT 112.2 LBS, HT 5 FT 3 IN, BMI 19.87 INDEX, BP 143/71 MM HG, HR 90 /MIN, RR 18 /MIN, TEMP 97.2 F, OXYGEN SAT % 95%, NA INITIALS AW 1343, REVIEWED BY: EM. EXAMINATION GENERAL EXAMINATION: PATIENT IS ALERT O X 3 AND COOPERATIVE. BILATERAL BRONCHI IN LUNGS. HEART: NO MURMURS OR GALLOPS; FACIAL CRANIAL NERVES ARE GROSSLY NORMAL. GOOD SYMMETRY OF FACIAL MUSCLE MOVEMENT. NORMAL VISUAL KIRBY. TENDERNESS IN THE LOW BACK AREA AND OVER THE SACROCOCCYGEAL LIGAMENT. PRESENCE OF TRIGGER POINTS AND BANDS OF TISSUE WITH RESTRICTION OF MOVEMENT OF THE BACK. MRI OF THE LUMBAR SPINE DONE ON 02/23/2018 SHOWS FACET ARTHROPATHY CHANGES AND STENOSIS AT MULTIPLE LEVELS. ASSESSMENTS MYALGIA, OTHER SITE - M79.18 (PRIMARY) SACROCOCCYGEAL PAIN - M53.3 TREATMENT MYALGIA, OTHER SITE CLINICAL NOTES: WE DISCUSSED SEVERAL ISSUES WITH MRS. LIVINGSTON'S PAIN MANAGEMENT CASE. DUE TO THE TRIGGER POINTS, BANDS OF TISSUE, AND RESTRICTION OF MOVEMENT, I WOULD LIKE TO MOVE FORWARD WITH A TRIGGER POINT INJECTION AT THIS TIME. WE DISCUSSED THE BENEFITS, RISKS, AND ALTERNATIVES OF THE INJECTION AND THE PATIENT WOULD LIKE TO PROCEED. THE PATIENT WILL CONSIDER A SACROCOCCYGEAL LIGAMENT INJECTION IN THE FUTURE. THE PATIENT WILL FOLLOW UP 3 WEEKS AFTER THE INJECTION. INSTRUCTIONS WERE GIVEN, QUESTIONS WERE ANSWERED, PATIENT REPORTS UNDERSTANDING AND AGREES WITH THE PLAN. I, MARGOT WRIGHT, DOCUMENTED THE ABOVE INFORMATION ACTING A SCRIBE FOR DR. MASTERSON. I HAVE REVIEWED THE ABOVE DOCUMENT, WRITTEN BY MARGOT GARVINIBCorinne AND I VERIFY THAT IT IS ACCURATE. DEAR DR. GONZALES:THANK YOU FOR YOUR KIND REFERRAL OF MRS. LIVINGSTON. IF YOU WANT TO DISCUSS HER CASE WITH ME PLEASE CALL ME AT THE PAIN CENTER AT [phone]. SINCERELY,MINISTERIO MASTERSON, [facility] . PROCEDURE CODES FA211 ESTABILISHED PATIENT [facility] F[facility] CHARGE [id number] CURRENT MEDS W/DOSAGES DOCUMENTED G8730 PAIN ASSESS POS TOOL F/U PLAN DOC DISPOSITION & COMMUNICATION FOLLOW UP 3 WEEKS ELECTRONICALLY SIGNED BY MINISTERIO MASTERSON MD, MD ON 05/05/2018 AT 11:36 AM EDT DISCLAIMER : THIS IS A VISIT SUMMARY EXTRACTED FROM THE [employer] CHART. IT IS NOT A COPY OF THE [employer] PROGRESS NOTE. MTDD
== END ==
LOC: M PAIN 13:45
PROVIDERS: ATTEND Anesthesiology
DX: M79.18 Myalgia, other site (principal); M53.3 Sacrococcygeal disorders, not elsewhere classified; I11.0 Hypertensive heart disease with heart failure; J43.9 Emphysema, unspecified; D64.9 Anemia, unspecified; R53.83 Other fatigue; E53.8 Deficiency of other specified B group vitamins; E55.9 Vitamin D deficiency, unspecified; E11.9 Type 2 diabetes mellitus without complications; F32.9 Major depressive disorder, single episode, unspecified; F41.9 Anxiety disorder, unspecified; I50.9 Heart failure, unspecified; F17.210 Nicotine dependence, cigarettes, uncomplicated; Z79.899 Other long term (current) drug therapy; Z95.820 Peripheral vascular angioplasty status with implants and grafts; Z88.2 Allergy status to sulfonamides; Z88.8 Allergy status to other drugs, medicaments and biological substances; Z91.048 Other nonmedicinal substance allergy status

== ENCOUNTER → 2018-05-26 | Outpatient (CLI) | payer MEDICARE ==
[~2018-05-26] MED LIST changes: +ASPI-1 PO; -ASPI325T PO; -ASPI81CH PO; +ASPI81CH49 PO; +BUPIVACAINE HCL 0.25% 10 ML VIAL As Ordered ONE; +BUPIVACAINE HCL 0.25% 30 ML VIAL As Ordered ONE; +HYDR-3715 PO; +LISI-1046 PO; -LISI2.5T5 PO; -NORC1TAB4 PO; +NORC1TAB7 PO; -NORCOTAB PO; +SERT-141 PO; -SERT50TA PO; +TRIAMCINOLONE ACETONIDE SUSP 40 MG/ML VIAL (J3301) As Ordered ONE; +diazePAM 5 MG TAB As Ordered ONE; +oxyCODONE 5MG TAB As Ordered ONE
--- NOTE | 2018-06-08 00:30 | ECWPNPC ---
PATIENT NAME: ELA LIVINGSTON : 1945 GENDER: FEMALE VISIT DATE: 05/26/2018 DISCHARGE DATE: 05/26/181648 VISIT LOCKED DATE TIME: PHYSICIAN: MINISTERIO MASTERSON MD RESOURCE: MINISTERIO MASTERSON MD REASON FOR APPOINTMENT 1. TPI BILATERAL THORACIC/ BILATERAL LUMBAR HISTORY OF PRESENT ILLNESS HISTORY OF PRESENT ILLNESS: PAIN THE PATIENT DESCRIBES THE PAIN... FALL RISK SCREENING: SCREENING :NO FALLS REPORTED IN THE LAST YEAR CURRENT MEDICATIONS TAKING ATORVASTATIN CALCIUM 20 MG TABLET 2 STABLET ORALLY ONCE A DAY, NOTES: 05/25/18@1999 TAKING LEVOTHYROXINE SODIUM 75 MCG TABLET 1 TAB ORALLY DAILY, NOTES: 1000 TAKING ANORO ELLIPTA 62.5-25 MCG/INH AEROSOL POWDER BREATH ACTIVATED 1 PUFF INHALATION DAILY, NOTES: 1000 TAKING PROAIR HFA 108 (90 BASE) MCG/ACT AEROSOL SOLUTION 2 PUFFS NEEDED INHALATION EVERY 6 HOURS NEEDED, NOTES: 2 DAYS AGO TAKING ALBUTEROL SULFATE (2.5 MG/3ML) 0.083% NEBULIZATION SOLUTION 3 ML INHALATION THREE TIMES A DAY, NOTES: 1 WEEK AGO TAKING SERTRALINE HCL 100 MG TABLET 1 TABLET ORALLY DAILY, NOTES: 1929 TAKING TRAMADOL HCL 50 MG TABLET 1 TABLET NEEDED ORALLY EVERY 6 HRS, NOTES: 1000 TAKING HYDROCODONE-ACETAMINOPHEN 5-325 MG TABLET 2 TABLET ORALLY FOUR TIMES DAILY, NOTES: 2-3 DAYS AGO TAKING INVOKANA 300 MG TABLET 1 TABLET ORALLY ONCE A DAY, NOTES: 1000 DISCONTINUED GABAPENTIN 600 MG TABLET 1 CAP ORALLY BID DISCONTINUED BREO ELLIPTA 200-25 MCG/INH AEROSOL POWDER BREATH ACTIVATED 1 PUFF INHALATION ONCE A DAY DISCONTINUED CLINDAMYCIN HCL 300 MG CAPSULE 1 CAPSULE ORALLY FOUR TIMES DAILY DISCONTINUED ASPIRIN 81 MG TABLET DELAYED RELEASE 1 TABLET ORALLY DAILY DISCONTINUED METFORMIN HCL 1000 MG TABLET 1 TABLET WITH MEALS ORALLY TWICE A DAY DISCONTINUED CIPRO 500 MG TABLET 1 TABLET 1 HOUR PRIOR TO YOUR CYSTOSCOPY ORALLY DIRECTED DISCONTINUED MACROBID 100 MG CAPSULE 1 CAPSULE WITH FOOD ORALLY EVERY 12 HRS DISCONTINUED LIDOCAINE HCL JELLY SENIOR LIVING 2 % JELLY 1 APPLICATION TO AFFECTED AREA NEEDED INTRAVESICALLY PRIOR TO CYSTOSCOPY IN OFFICE DISCONTINUED SALLY ASPIRIN EXTRA STRENGTH 500 MG TABLET 1 TABLET NEEDED ORALLY ONCE DAILY DISCONTINUED GLIPIZIDE 10 MG TABLET 1 TABLET ORALLY BID DISCONTINUED IRON 325 (65 FE) MG TABLET 1 TABLET ORALLY BID DISCONTINUED ADVAIR DISKUS 250-50 MCG/DOSE AEROSOL POWDER BREATH ACTIVATED 1 PUFF INHALATION DAILY DISCONTINUED CIPRO 500 MG TABLET 1 TABLET ORALLY TWICE A DAY DISCONTINUED VITAMIN D3 5000 UNIT CAPSULE 1 CAPSULE ORALLY WEEKLY MEDICATION LIST REVIEWED AND RECONCILED WITH THE PATIENT PAST MEDICAL HISTORY HTN EMPHYSEMA ANEMIA FATIGUE VITAMIN B 12 DEFICIENCY VITAMIN D DEFICIENCY NIDDM DEPRESSION ANXIETY CHF RIGHT LUNG UPPER LOBE MASS ALLERGIES BACITRACIN SULFAMETHOXAZOLE TRIMETHOPRIM FLUOXETINE POLYMYXIN B SULFATE RED DYE ADHESIVE TAPE SURGICAL HISTORY HYSTERECTOMY VAGINAL TUMOR REMOVAL 2015 BILAT LEG STENTS PLACED BY DR KENAN LENZ CIRCULATION LUNG MASS REMOVED 2018 FAMILY HISTORY FATHER: 76 YRS, DIAGNOSED WITH STROKE MOTHER: 74 YRS, [place], DIABETES 2 BROTHER(S) , 3 SISTER(S) . 3 SON(S) . MOTHER WITH EMPHYSEMA, HEART DISEASE. 1 SISTER WITH ALZHEIMER\'S. ALL SIBLINGS HAVE DIABETES. 1 SON OF COLON CANCER. SOCIAL HISTORY GENERAL: TOBACCO USE ARE YOU A:CURRENT SMOKER ARE YOU INTERESTED IN QUITTING?THINKING ABOUT QUITTING COUNSELED THE PATIENT ON SMOKING CESSATION, EDUCATION [id number]/14/2019 HOW MANY CIGARETTES A DAY DO YOU SMOKE?6-10 PATIENT COUNSELED ON THE DANGERS OF TOBACCO USE AND URGED TO QUIT:09/20/2016 ADDITIONAL FINDINGS: TOBACCO USERMODERATE CIGARETTE SMOKER (10-19 CIGS/DAY) SMOKING CESSATION INFORMATION GIVEN SMOKING CESSATION CLASSES OFFERED TO PT VAPORNO E-CIGARETTENO LUNG CANCER SCREENING SMOKING STATUS:CURRENT SMOKER ALCOHOL SCREENING DID YOU HAVE A DRINK CONTAINING ALCOHOL IN THE PAST YEAR?NO POINTS0 INTERPRETATIONNEGATIVE RECREATIONAL DRUG USE DRUG USE? YES , HOW OFTEN AND HOW MUCH? 2 TIMES PER WEEK ( MARIJUANA). CAFFEINE CAFFEINE USE?YES HOW OFTEN AND HOW MUCH? 4 CUPS COFFEE PER DAY SEXUAL HX HAD SEX IN THE LAST 12 MONTHS (VAGINAL, ORAL, OR ANAL)?NO HAVE YOU EVER HAD AN STD?NO LMP:HYSTERECTOY GNOSTICIST GNOSTICIST NO TAOISM BELIEFS THAT WOULD IMPACT HEALTH CARE. LANGUAGE LANGUAGES SPOKEN:LIBERIAN EDUCATION LEVEL OF EDUCATION:NOT FINISHED HIGH SCHOOL LEARNING BARRIERS / SPECIAL NEEDS CHANGE FROM LAST VISIT?NO BARRIERS TO LEARNING?NO HEARING IMPAIRED?NO VISION IMPAIRED?YES :CORRECTIVE LENSES FOR READING COGNITIVELY IMPAIRED?NO READINESS TO LEARN?YES LEARNING PREFERENCES?YES :HANDOUTS, DEMONSTRATION/VERBAL INSTRUCTION, OTHER (PLEASE COMMENT) LEARNING CAPABILITIES PRESENT?YES EMOTIONAL BARRIERS?YES DEPRESSION AND ANXIETY COMMENTSDOCUMENTED IN NOTES SECTION> VERBAL SPECIAL DEVICES?YES :WALKER DIRECTOR OF SAFETY NEEDED?NO EXERCISE: NONE. MARITAL STATUS: ., . OTHERS AT HOME: NONE. PAIN CLINIC PFS, CLERGY, PUBLIC HEALTH REFERRALS PFS REFERRAL NEEDED?NO CLERGY REFERRAL NEEDED?NO PUBLIC HEALTH REFERRAL NEEDED?NO WAS THE PROVIDER NOTIFIED OF ANY PERTINENT INFO?NO HAS THE PATIENT BEEN EDUCATED REGARDING HIS/HER PLAN OF CARE?YES HAS THE PATIENT BEEN EDUCATED REGARDING PAIN, THE RISK FOR PAIN, THE IMPORTANCE OF EFFECTIVE PAIN MANAGEMENT, AND THE PAIN ASSESSMENT PROCESS?YES HOUSING: RENTS APARTMENT. ADVANCE DIRECTIVE ADVANCE DIRECTIVE DISCUSSED WITH PATIENT:YES PAM ESCAMILLA, SON [phone] HOSPITALIZATION/MAJOR DIAGNOSTIC PROCEDURE PNEUMONIA X1 WEEK [facility] 10/05/15 PNEUMONIA X 2WEEKS AT [facility] 10/2015 SURGERY RELATED CHILD REVIEW OF SYSTEMS REVIEWED BY: PROVIDER: . CONSTITUTIONAL: ANY CHANGE IN YOUR MEDICAL CONDITION? NO . CHILLS NO . FEVER NO . INFECTION: DO YOU HAVE NEW INFECTIONS? NO . DO YOU HAVE HISTORY OF MRSA? NO . MUSCULOSKELETAL: ANY NEW PATTERNS OF PAIN OR NUMBNESS? NO . GASTROENTEROLOGY: ANY NEW CHANGE IN BOWEL CONTROL? NO . GENITOURINARY: ANY NEW CHANGE IN BLADDER CONTROL? NO . IS THERE A CHANCE YOU COULD BE ? NO . HEMATOLOGY/LYMPH: DO YOU TAKE ANY BLOOD THINNERS? (FOR EXAMPLE- COUMADIN, PLAVIX, AGGRENOX, PLATEL, PRADAXA, OR XARELTO) NO . WHEN WAS YOUR LAST DOSE? DATE: TIME: 05/25@0 <05/25@2199> . NEUROLOGY: HAVE YOU FALLEN IN THE PAST 12 MONTHS? NO, YES . ANY NEW EXTREMITY NUMBNESS OR WEAKNESS? NO . CARDIOLOGY: DO YOU HAVE A PACEMAKER OR DEFIBRILLATOR? NO . RESPIRATORY: HAVE YOU BEEN SICK IN THE PAST WEEK? NO . FEVER NO . FLU LIKE SYMPTOMS? NO . COUGH NO . INTEGUMENTARY: DO YOU HAVE ANY RASHES OR OPEN SORES? NO . ALLERGIC/IMMUNO: ARE YOU ALLERGIC TO IV DYE? NO . ANY NEW ALLERGIES? NO . PSYCHIATRIC: DO YOU HAVE THOUGHTS OF HURTING YOURSELF OR SOMEONE ELSE? NO . ARE YOU ABUSED, NEGLECTED, OR IN AN UNSAFE ENVIRONMENT? NO . ENDOCRINOLOGY: ARE YOU DIABETIC? NO . OTHER: DO YOU NEED ANY PRESCRIPTIONS? NO . IF YES, PLEASE LIST: ____ . ANY NEW PROBLEMS WITH YOUR MEDICATIONS? NO . WHEN DID YOU LAST EAT? ____05/25/18 . WHEN DID YOU LAST DRINK? ____05/26/18@1000 <____05/26/18@1000> . WHAT DID YOU LAST DRINK? ____JALEN GUOKE . NAME OF PERSON DRIVING YOU HOME? ____PAM ESCAMILLA . DO YOU HAVE ANY OTHER QUESTIONS OR CONCERNS NO . VITAL SIGNS WT 112.2 LBS, HT 5 FT 3 IN, BMI 19.87 INDEX, BP 137/70 MM HG, HR 94 /MIN, RR 18 /MIN, TEMP 97.7 F, OXYGEN SAT % 94%, SAFE IN ENV? (Y/N) YES, NA INITIALS AW 1424, REVIEWED BY: VD. ASSESSMENTS MYALGIA, OTHER SITE - M79.18 (PRIMARY) PROCEDURES PN TRIGGER POINT INJECTION WITH STEROIDS PRE PROCEDURE DIAGNOSIS 1. MYALGIA 2. PAIN AT BILATERAL THORACIC AREA AND BILATERAL LOW BACK AREA. POST PROCEDURE DIAGNOSIS 1. MYALGIA 2. PAIN AT BILATERAL THORACIC AREA AND BILATERAL LOW BACK AREA. PROCEDURE TRIGGER POINT INJECTION AT BILATERAL LOW BACK AREA AND BILATERAL THORACIC AREA. SURGEON DR. MINISTERIO MASTERSON FUR FINISHER NONE ANESTHESIA LOCAL PRE PROCEDURE NOTE THE PATIENT HAS A HISTORY OF CHRONIC PAIN AT THE RIGHT AND LEFT LOW BACK AREA AND RIGHT AND LEFT THORACIC AREA. I EVALUATE THE PATIENT AND REVIEWED THE CHART. THERE IS EVIDENCE OF BANDS OF TISSUE WITH RESTRICTION OF MOVEMENT AND PRESENCE OF TRIGGER POINT AT THE AFFECTED AREA. I WENT OVER THE RISKS, ALTERNATIVES, AND BENEFITS ASSOCIATED WITH THIS PROCEDURE. THE PATIENT WOULD LIKE TO PROCEED AND GIVE CONSENT TO PERFORMED THE PROCEDURE. THE PATIENT DENIES UNEXPLAINABLE WEIGHT LOSS, FEVER, CHILLS, OR NEW CHANGES IN URINARY OR BOWEL CONTROL DESCRIPTION OF PROCEDURE THE PATIENT WAS BROUGHT TO THE PROCEDURE ROOM AND PLACED IN THE SITTING POSITION. THE AREA WAS CLEANED WITH ALCOHOL. THE PROCEDURE WAS DONE USING ASEPTIC STERILE TECHNIQUE. I CHECKED LATERALITY AND THE LEVEL WHERE THE PROCEDURE WAS GOING TO BE PERFORMED WITH THE PATIENT AND THE SUPPORTING STAFF AT THE MOMENT OF THE TIME OUT IN THE PROCEDURE ROOM. USING A 25-GAUGE NEEDLE, TRIGGER POINTS WERE INJECTED AT THE RIGHT AND LEFT LOW BACK AREA AND RIGHT AND LEFT THORACIC AREA WITH A TOTAL OF 40 ML OF BUPIVACAINE 0.25% AND KENALOG 40 MG. THERE WAS NO EVIDENCE OF BLOOD, PARESTHESIA OR CEREBROSPINAL FLUID DURING THE PROCEDURE. THE PATIENT WAS SENT TO THE RECOVERY ROOM. THE PATIENT WAS MOVING THE EXTREMITIES AND DOING WELL. THERE WAS NO COMPLICATION DURING THE PROCEDURE POST PROCEDURE NOTE THE PATIENT WILL BE SEEN IN A FOLLOW UP IN THE NEXT FEW WEEKS. INSTRUCTIONS WERE GIVEN, QUESTIONS WERE ANSWERED, AND THE PATIENT EXPRESSED UNDERSTANDING AND AGREES WITH THE PLAN. I, AMA DELEON, DOCUMENTED THE ABOVE INFORMATION ACTING A SCRIBE FOR DR. MASTERSON. I HAVE REVIEWED THE ABOVE DOCUMENT, WRITTEN BY AMA DELEON SCRIBCorinne AND I VERIFY THAT IT IS ACCURATE. PROCEDURE CODES 16284 INJECT TRIGGER POINTS, =/> 3 DISPOSITION & COMMUNICATION FOLLOW UP 3 WEEKS ELECTRONICALLY SIGNED BY MINISTERIO MASTERSON MD, MD ON 06/07/2018 AT 08:11 PM EDT DISCLAIMER : THIS IS A VISIT SUMMARY EXTRACTED FROM THE [employer] CHART. IT IS NOT A COPY OF THE [employer] PROGRESS NOTE. SUNITA
== END ==
LOC: M PAIN 14:15
PROVIDERS: ATTEND Anesthesiology
DX: M79.18 Myalgia, other site (principal); I11.0 Hypertensive heart disease with heart failure; J43.9 Emphysema, unspecified; D64.9 Anemia, unspecified; R53.83 Other fatigue; E53.8 Deficiency of other specified B group vitamins; E55.9 Vitamin D deficiency, unspecified; F17.210 Nicotine dependence, cigarettes, uncomplicated; E11.9 Type 2 diabetes mellitus without complications; F32.9 Major depressive disorder, single episode, unspecified; F41.9 Anxiety disorder, unspecified; I50.9 Heart failure, unspecified; Z95.820 Peripheral vascular angioplasty status with implants and grafts; Z87.09 Personal history of other diseases of the respiratory system; Z79.891 Long term (current) use of opiate analgesic; Z79.899 Other long term (current) drug therapy; Z88.2 Allergy status to sulfonamides; Z88.8 Allergy status to other drugs, medicaments and biological substances; Z88.1 Allergy status to other antibiotic agents
CPT/HCPCS: 20553; J3301

== ENCOUNTER → 2018-07-13 | Outpatient (CLI) | payer MEDICARE ==
[~2018-07-13] MED LIST changes: -BUPIVACAINE HCL 0.25% 10 ML VIAL As Ordered ONE; -BUPIVACAINE HCL 0.25% 30 ML VIAL As Ordered ONE; -TRIAMCINOLONE ACETONIDE SUSP 40 MG/ML VIAL (J3301) As Ordered ONE; -diazePAM 5 MG TAB As Ordered ONE; -oxyCODONE 5MG TAB As Ordered ONE
[2018-07-13 17:14] LABS: ALBUMIN 3.9 GM/DL (3.2-5.2); BILIRUBIN,TOTAL 0.5 MG/DL (0.2-1.0); CALCIUM LEVEL 9.8 MG/DL (8.8-10.2); CREATININE FOR GFR 1.15 MG/DL (0.55-1.30); GLOMERULAR FILTRATION RATE 49.4 (>39); POTASSIUM SERUM 5.2 MEQ/L (3.5-5.1); TOTAL PROTEIN 6.8 GM/DL (6.4-8.2)
[2018-07-13 17:29] LABS: BASO # 0.1 10^3/uL (0.0-0.2); BASO % 0.6 % (0.0-1.0); EOS # 0.1 10^3/uL (0.0-0.50); EOS % 0.6 % (0.0-3.0); HEMATOCRIT 40.1 % (36.0-47.0); HEMOGLOBIN 12.7 g/dl (12.0-15.5); LYMPH # 0.7 10^3/uL (1.5-4.5); LYMPH % 5.1 % (24.0-44.0); MEAN CORPUSCULAR HGB CONC 31.7 g/dl (32.0-36.5); MEAN CORPUSCULAR VOLUME 88.5 fl (80.0-96.0); MONO # 0.3 10^3/uL (0.0-0.8); MONO % 2.3 % (0.0-5.0); NEUTROPHILS # 11.5 10^3/uL (1.8-7.7); PLATELET COUNT, AUTOMATED 166 10^3/uL (150-450); RED BLOOD COUNT 4.53 10^6/uL (4.00-5.40); WHITE BLOOD COUNT 12.6 10^3/uL (4.0-10.0)
== END ==
LOC: M SMT 14:14
PROVIDERS: ATTEND Family Medicine
DX: R10.9 Unspecified abdominal pain (principal)

== ENCOUNTER → 2019-07-01 | Outpatient (CLI) | payer MEDICARE ==
[~2019-07-01] MED LIST changes: +ALB2.5NEB NEB; +ALPR1TAB3 PO; +ATOR40TA75 PO; +AZIT-12 PO; +BASA100I SC; +CEFD300CAP PO; +CYAN100049 PO; +CYAN1000VL IM; +DULO60CA35 PO; +LEVO75TA4 PO; +LISI-1034 PO; -LISI-1046 PO; +LISI2.5T2 PO; -LISI2.5T76 PO; +OXYC-1 PO; -OXYC15TA76 PO; +OXYC20TA2 PO; +PLAV1TAB2 PO; +SYMB16INH INH; +VITA-243 PO; -VITA10002 PO; -VITA500T PO
[2019-07-01 18:43] LABS: BASO # 0.1 10^3/uL (0.0-0.2); BASO % 0.4 % (0.0-1.0); EOS % 0.1 % (0.0-3.0); HEMATOCRIT 39.9 % (36.0-47.0); HEMOGLOBIN 12.4 g/dl (12.0-15.5); LYMPH # 0.5 10^3/uL (1.5-5.0); LYMPH % 3.8 % (24.0-44.0); MEAN CORPUSCULAR HEMOGLOBIN 27.4 pg (27.0-33.0); MEAN CORPUSCULAR HGB CONC 31.1 g/dl (32.0-36.5); MEAN CORPUSCULAR VOLUME 88.3 fl (80.0-96.0); MONO # 0.2 10^3/uL (0.0-0.8); MONO % 1.8 % (0.0-5.0); NEUTROPHILS # 11.7 10^3/uL (1.5-8.5); NEUTROPHILS % 93.4 % (36.0-66.0); PLATELET COUNT, AUTOMATED 261 10^3/uL (150-450); RED BLOOD COUNT 4.52 10^6/uL (4.00-5.40); WHITE BLOOD COUNT 12.5 10^3/uL (4.0-10.0)
[2019-07-01 19:12] LABS: ALBUMIN 3.3 GM/DL (3.2-5.2); BILIRUBIN,TOTAL 0.4 MG/DL (0.2-1.0); CALCIUM LEVEL 8.8 MG/DL (8.8-10.2); CREATININE FOR GFR 1.42 MG/DL (0.55-1.30); FOLATE 14.4 NG/ML; FREE T4 1.7 NG/DL (0.76-1.46); GLOMERULAR FILTRATION RATE 38.6 (>39); PERCENT SATURATION 13.8 % (13.2-45.0); THYROID STIMULATING HORMONE 0.905 uIU/ML (0.358-3.740); TOTAL PROTEIN 6.9 GM/DL (6.4-8.2)
--- NOTE | 2019-07-02 01:17 | REPPI ---
Clinical: Chest pain and fatigue. Technique: PA and lateral. Comparison: 08/20/2018. Findings: Mediastinum and cardiac silhouette are stable with atherosclerotic changes to the thoracic aorta again noted. The lung ferrell demonstrate diffuse chronic interstitial changes primarily involving the right upper lung zone where scarring extends from the right hilum to the periphery. No focal consolidation, effusion, or pneumothorax. Impression: Chronic-appearing changes as described above primarily involving the right upper lobe. If the patient remains symptomatic consider chest CT for further investigation. Electronically Signed by Danis Greenfield MD 07/02/2019 01:08 A
== END ==
LOC: M PLAIMG 15:32
PROVIDERS: ATTEND Physician Assistant
DX: R53.83 Other fatigue (principal)

== ENCOUNTER 2019-07-02 10:13 | Inpatient (IN) | payer MEDICARE ==
[~2019-07-02] VITALS: Ht 160 cm; Wt 47.8 kg
[~2019-07-02 10:13] MED LIST changes: -ALB2.5NEB NEB; -ALPR1TAB3 PO; -ATOR40TA75 PO; -AZIT-12 PO; -BASA100I SC; -CEFD300CAP PO; -CYAN1000VL IM; -DULO60CA35 PO; -LEVO75TA4 PO; -OXYC20TA2 PO; -PLAV1TAB2 PO; -SYMB16INH INH
[2019-07-02] MEDS ORDERED: IPRATROPIUM 0.5MG/ALBUTEROL 2.5MG INH SOL UD 3ML (DUONEB)(J7620) NEB ONE (10:45)
[2019-07-02] MEDS ORDERED: ALBUTEROL SULFATE 2.5 MG/0.5 ML INH NEB SOLN INH ONE (10:45)
[2019-07-02] MEDS ORDERED: methylPREDNISolone INJ 40 MG/1 ML VIAL (J2920) IV ONE (10:45)
[2019-07-02] MEDS ORDERED: methylPREDNISolone INJ 125 MG/2 ML VIAL (J2930) IV ONE (11:00)
[2019-07-02 11:20] LABS: BASO # 0.1 10^3/uL (0.0-0.2); BASO % 0.3 % (0.0-1.0); EOS # 0.1 10^3/uL (0.0-0.5); EOS % 0.8 % (0.0-3.0); HEMATOCRIT 37.5 % (36.0-47.0); HEMOGLOBIN 11.8 g/dl (12.0-15.5); LYMPH # 0.5 10^3/uL (1.5-5.0); LYMPH % 3.5 % (24.0-44.0); MEAN CORPUSCULAR HEMOGLOBIN 26.8 pg (27.0-33.0); MEAN CORPUSCULAR HGB CONC 31.5 g/dl (32.0-36.5); MONO # 0.3 10^3/uL (0.0-0.8); MONO % 2.3 % (0.0-5.0); NEUTROPHILS # 13.4 10^3/uL (1.5-8.5); NEUTROPHILS % 92.6 % (36.0-66.0); PLATELET COUNT, AUTOMATED 209 10^3/uL (150-450); RED BLOOD COUNT 4.41 10^6/uL (4.00-5.40); WHITE BLOOD COUNT 14.5 10^3/uL (4.0-10.0)
[2019-07-02] MEDS ORDERED: LEVO75TA4 PO (11:34)
[2019-07-02] MEDS ORDERED: PROAAER10 INH (11:34)
[2019-07-02] MEDS ORDERED: OXYC20TA2 PO (11:34)
[2019-07-02] MEDS ORDERED: AMLO10TA5 PO (11:34)
[2019-07-02] MEDS ORDERED: BASA100I SC (11:34)
[2019-07-02] MEDS ORDERED: SYMB16INH INH (11:34)
[2019-07-02] MEDS ORDERED: PLAV1TAB2 PO (11:34)
[2019-07-02] MEDS ORDERED: HYDR-3715 PO (11:34)
[2019-07-02] MEDS ORDERED: DULO60CA35 PO (11:34)
[2019-07-02] MEDS ORDERED: ALPR1TAB3 PO (11:34)
[2019-07-02] MEDS ORDERED: CYAN1000VL IM (11:34)
[2019-07-02] MEDS ORDERED: ALB2.5NEB NEB (11:34)
[2019-07-02] MEDS ORDERED: ATOR40TA75 PO (11:34)
[2019-07-02] MEDS ORDERED: LISI40TA PO (11:34)
[2019-07-02] MEDS ORDERED: HYDR50TA PO (11:34)
[2019-07-02] MEDS ORDERED: PRED10TA2 PO (11:34)
[2019-07-02] MEDS ORDERED: LIDOCAINE 2% 5ML JELLY UROJET TOP ONE (12:00)
--- NOTE | 2019-07-02 12:19 | REP ---
CHEST, SINGLE VIEW: Single view of the chest is performed and compared to prior studies, 07/01/2019 and 08/20/2018. There is chronic and parenchymal fibrosis on the right, predominantly superiorly. I do not see evidence of acute infiltrate. Heart is not enlarged. There is calcification of the thoracic aorta. Mediastinal silhouette is unchanged. IMPRESSION: There appear to be stable chronic changes, as discussed above, predominantly in the right lung. No definite acute infiltrate. Electronically Signed by Boy Barrios MD 07/02/2019 03:52 P
--- NOTE | 2019-07-02 12:28 | ECGEPIP ---
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
[2019-07-02 12:45] LABS: ALBUMIN 3.2 GM/DL (3.2-5.2); BILIRUBIN,DIRECT 0.1 MG/DL (0.0-0.2); BILIRUBIN,TOTAL 0.4 MG/DL (0.2-1.0); CK-MB VALUE MASS 4.5 NG/ML (<3.6); MB/CK RELATIVE INDEX 5.17 (< OR =4); TROPONIN I 0.04 NG/ML (< 0.10)
[2019-07-02] MEDS ORDERED: fentaNYL 100 MCG/2 ML INJECTION (J3010) IV ONE ×2 (12:45→14:15)
[2019-07-02] MEDS ORDERED: ISOVUE-370 76% 100ML VIAL As Ordered ONE (13:01)
[2019-07-02] MEDS ORDERED: cefTRIAXone SOD 1 GM in D5W MINI-BAG PLUS 50 ML IV ONE (14:00)
[2019-07-02] MEDS ORDERED: DOXYCYCLINE HYCLATE 100 MG in D5W MINI-BAG PLUS 100 ML IV ONE (14:00)
--- NOTE | 2019-07-02 14:32 | REP ---
CT ANGIOGRAM CHEST: TECHNIQUE: Axial contrast-enhanced images from the thoracic inlet to the upper abdomen using 100 mL Isovue-370 intravenous contrast material with multiplanar reformations. COMPARISON: 02/18/[address] evidence of pulmonary embolism. There are moderate atherosclerotic calcifications of the thoracic aorta without no aneurysm or dissection. The heart is not enlarged. There is no mediastinal, hilar, or chest wall lymphadenopathy. There is no pleural or pericardial effusion. Chronic fibrotic changes are seen bilaterally with moderate degree of pleural and parenchymal fibrosis in the right upper lobe unchanged. There is mild patchy infiltrate in the right lower lobe. Mild fibroatelectatic change is seen in the left lower lobe. There are degenerative changes of the spine. IMPRESSION: No evidence of pulmonary embolism or aortic dissection. Mild patchy infiltrate right lower lobe. Electronically Signed by Boy Barrios MD 07/02/2019 03:55 P
--- NOTE | 2019-07-02 14:51 | REP ---
CT ABDOMEN/PELVIS WITH AND WITHOUT IV CONTRAST; CT abdomen/pelvis performed prior to and following the intravenous administration of 100 mL of Isovue-370. Sagittal and coronal reconstruction images are performed. Calcified granulomas are seen in the liver and spleen without evidence of mass. Spleen is normal in size. There is mild adrenal gland thickening without a discrete mass. Pancreas demonstrates no mass. Pancreatic duct is upper limits of normal at 3 mm. Common bile duct is upper limits of normal at 7 mm. Gallbladder is grossly unremarkable. There is severe right renal artery stenosis and severe right renal atrophy. There is a cyst in the upper right kidney measuring 1.8 cm. Left kidney is normal in size with no hydronephrosis and there is no evidence of left renal or ureteral calculus. There is moderate to severe atherosclerotic calcification of the abdominal aorta and its branches. There is at least 50% narrowing of the celiac, superior and inferior mesenteric arteries. There are bilateral common iliac artery stents which are patent. There does appear to be occlusion of the proximal superficial femoral arteries bilaterally. There is no adenopathy, free air or free fluid. Is see no bowel wall thickening. There is a large amount of fecal material throughout the colon. I see no pelvic mass. The appendix is normal. IMPRESSION: Severe atherosclerotic disease. Severe right renal artery stenosis and right renal atrophy. There is at least 50% narrowing of the celiac, superior and inferior mesenteric arteries. No free air or free fluid. Large amount of fecal material throughout the colon. Electronically Signed by Boy Barrios MD 07/02/2019 04:09 P
--- NOTE | 2019-07-02 15:27 | HPEPDOC ---
[facility] Medical History & Physical Date of Admission July 02, 2019 Date of Service: July 02, 2019 History and Physical CHIEF COMPLAINT: Left flank pain HISTORY OF PRESENT ILLNESS: 73 yo female presented to ED at request of her PCP for abnormal labs, obtained yesterday (07/01/19), most notably potassium and hyperglycemia. On evaluation she noted a several day history of left flank pain and dysuria. She also notes chronic productive cough, which is slightly worse. She also notes chronic malaise and poor appetite. No history of travel, she states she essentially stays home all the time. Denies chest pain, N/V/D. PAST MEDICAL HISTORY: # chronic pain. # L4 compression. # Right infarct of kidney. # PVD s/p RLE angioplasty with stenting. # CKD III # Anxiety/depression. # Bladder cancer, followed by Dr. Astudillo. 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 # Peripheral vascular disease. # Hypercholesterolemia. # Insulin-dependent diabetes. # Hypothyroidism. # HTN # anemia # fatigue # CHF # RUL lung mass ALLERGIES: Please see below. REVIEW OF SYSTEMS: 10 point review negative except as per HPI. HOME MEDICATIONS: Please see below. PHYSICAL EXAMINATION: VITAL SIGNS: See below GENERAL APPEARANCE: elderly, frail, chronically ill appearing, cachectic HEENT: NC/AT CARDIOVASCULAR: +S1S2, RRR LUNGS: b/l wheezing, diminished breath sounds ABDOMEN: soft, mild tenderness, +BS, left flank tenderness EXTREMITIES: no edema PSYCHIATRIC: AAOx3 LABORATORY DATA: See below. MICROBIOLOGY: Please see below. ASSESSMENT: 73 yo female with extensive medical history, originally presents for hyperkalemia and hyperglycemia from labs obtained by her PCP, found to be short of breath with left flank pain, suspicious for PNA and UTI. #PNA - sputum culture pending - respiratory panel negative - continue Abx #left flank pain - possibly musculoskeletal - especially with increased cough - does note dysuria - possible UTI - as above - will receive antibiotics - UCx pending #IDDM - insulin sliding scale - carb consistent diet # chronic pain. - continue home regimen # L4 compression. # Right infarct of kidney. # PVD s/p RLE angioplasty with stenting. # CKD III - at baseline # Anxiety/depression. - continue duloxetine as per home regimen # Bladder cancer - as per records - followed by Dr. Astudillo. 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 # Hypercholesterolemia. # Hypothyroidism. - levothyroxine # HTN - ACEI as per home regimen # anemia # fatigue # CHF # RUL lung mass # DVT prophylaxis - mechanical Vital Signs Vital Signs Date Time Temp Pulse Resp B/P (MAP) Pulse Ox O2 Delivery O2 Flow Rate FiO2 07/02/19 14:22 18 07/02/19 13:01 135/63 (87) 07/02/19 12:58 93 94 Nasal Cannula 2.0 07/02/19 10:13 98.4 Laboratory Data Labs 24H Laboratory Tests 2 07/02/19 10:58: POC Glucose (Misc Panel) 136H, POC Sodium (Misc Panel) 136, POC Potassium (Misc Panel) 5.5H, POC Chloride (Misc Panel) 99, POC Total CO2 (Misc Panel) 30.0H, POC Blood Urea Nitrogen (Misc Panel 27H, POC Ionized Calcium (Misc Panel) 4.6, POC Creatinine (Misc Panel) 0.9, POC Hematocrit (Misc Panel) 37.0L 07/02/19 11:00: Immature Granulocyte % (Auto) 0.5, Neutrophils (%) (Auto) 92.6H, Lymphocytes (%) (Auto) 3.5L, Monocytes (%) (Auto) 2.3, Eosinophils (%) (Auto) 0.8, Basophils (%) (Auto) 0.3, Neutrophils # (Auto) 13.4H, Lymphocytes # (Auto) 0.5L, Monocytes # (Auto) 0.3, Eosinophils # (Auto) 0.1, Basophils # (Auto) 0.1, Nucleated Red Blood Cells % (auto) 0.0, Total Bilirubin 0.4, Direct Bilirubin 0.1, Aspartate Amino Transf (AST/SGOT) 28, Alanine Aminotransferase (ALT/SGPT) 26, Alkaline Phosphatase 91, Total Creatine Kinase 87, Creatine Kinase MB 4.5H, Creatine Kinase MB Relative Index 5.17H, Troponin I 0.04, AI-Hef-B-Type Natriuretic Peptide 2699H, Total Protein 7.0, Albumin 3.2, Albumin/Globulin Ratio 0.8L, Lipase 222 07/02/19 11:49: Urine Color YELLOW, Urine Appearance CLEAR, Urine pH 7.0, Urine Specific [place] 1.010, Urine Protein 2+H, Urine Glucose (UA) NEGATIVE, Urine Ketones NEGATIVE, Urine Blood NEGATIVE, Urine Nitrite NEGATIVE, Urine Bilirubin NEGATIVE, Urine Urobilinogen 0.2, Urine Leukocyte Esterase 2+H, Urine WBC (Auto) 2, Urine RBC (A uto) 2, Urine Hyaline Casts (Auto) 0, Urine Bacteria (Auto) NEGATIVE, Urine Squamous Epithelial Cells 1, Urine Sperm (Auto) 07/02/19 13:08: POC Total CO2 (Misc Panel) 29.0H, POC pH (Misc Panel) 7.440, POC Base Excess (Misc Panel) 3.0, POC Saturated Percent O2 (Misc) 95, POC pO2 (Misc Panel) 73.0L, POC pCO2 (Misc Panel) 40.2, POC HCO3 (Misc Panel) 27.3H CBC/BMP Laboratory Tests 07/02/19 11:00 Microbiology Microbiology 07/02/19 Urine Culture, Received Pending 07/02/19 Blood Culture, Received Pending 07/02/19 Respiratory Virus Panel (PCR) (SANDRA) - Final, Complete 07/02/19 Blood Culture, Received Pending Home Medications Scheduled Amlodipine Besylate (Amlodipine Besylate) 10 Mg Tablet, 10 MG PO DAILY Atorvastatin Calcium (Atorvastatin Calcium) 40 Mg Tablet, 40 MG PO QHS Budesonide/Formoterol (Symbicort 160-4.5 Mcg Inhaler) 6 Gm Hfa.aer.ad, 2 PUFF INH BID Clopidogrel Bisulfate (Plavix) 75 Mg Tablet, 75 MG PO DAILY Cyanocobalamin (Cyanocobalamin Injection) 1,000 Mcg/1 Ml Vial, 1,000 MCG IM QMONTH Duloxetine HCl (Duloxetine HCl) 60 Mg Capsule.dr, 60 MG PO QPM Hydralazine HCl (Hydralazine HCl) 50 Mg Tablet, 50 MG PO BID Insulin Glargine,Hum.rec.anlog (Basaglar Kwikpen U-100) 100 Unit/1 Ml Insuln. pen, 20 UNIT SC DAILY Levothyroxine Sodium (Levothyroxine Sodium) 75 Mcg Tablet, 75 MCG PO DAILY Lisinopril (Lisinopril) 40 Mg Tablet, 40 MG PO DAILY Oxycodone Hcl (Oxycodone HCl) 20 Mg Tablet, 20 MG PO BID Prednisone (Prednisone) 10 Mg Tablet, 10 MG PO DAILY Scheduled PRN Albuterol Sulfate (Proair Hfa) 8.5 Gm Hfa.aer.ad, 2 PUFF INH QID PRN for SOB/WHEEZING Albuterol Sulfate (Albuterol Sulfate) 2.5 Mg/0.5 Ml Vial.neb, 1 VIAL NEB Q6H PRN for SOB/WHEEZING Alprazolam (Alprazolam) 1 Mg Tablet, 1 MG PO DAILY PRN for ANXIETY Hydrocodone/Acetaminophen (Hydrocodone-Acetamin 5-325 mg) 1 Each Tablet, 1 TAB PO BID PRN for pain Allergies Coded Allergies: Sulfa (Sulfonamide Antibiotics) (Verified Allergy, Intermediate, RASH, 07/02/19) bacitracin (Verified Allergy, Intermediate, RASH, 07/02/19) cortisone (Verified Allergy, Intermediate, RASH, 07/02/19) neomycin (Verified Allergy, Intermediate, RASH, 07/02/19) polymyxin B (Verified Allergy, Intermediate, RASH, 07/02/19) red dye (Verified Allergy, Intermediate, rash OCCURRED ONCE WITH CAPSULE MED NO OTHER PROBLEMS WIT, 07/02/19) fluoxetine (Verified Allergy, Unknown, 07/02/19) tramadol (Verified Allergy, Unknown, 07/02/19) HAS HAD OXYCODONE BEFORE WITHOUT ISSUE A-FIB/CHADSVASC A-FIB History Current/History of A-Fib/PAF?: No CHAYO WOODS MD July 02, 2019 15:15
[2019-07-02] MEDS ORDERED: DEXTROSE 50% 50 ML SYRINGE IV PRN (15:30)
[2019-07-02] MEDS ORDERED: ALPRAZolam 0.5 MG TAB PO PRN (15:30)
[2019-07-02] MEDS ORDERED: GLUCOSE 4GM CHEW TABLET PO PRN (15:30)
[2019-07-02] MEDS ORDERED: GLUCAGON INJ 1MG VIAL SC PRN (15:30)
[2019-07-02 16:31] VITALS: BP 155/77
[2019-07-02] MEDS: NORCO, ANEXSIA 5/325MG TABLET (HYDROcodone/ACETAMINOPHEN) PO PRN (16:36)
[2019-07-02] MEDS: HumaLOG INSULIN (NovoLOG) PER UNIT SC SCH ×2 (17:20→21:09)
[2019-07-02] MEDS: **hydrALAZINE** 50 MG TAB PO SCH (21:07)
[2019-07-02] MEDS: DULoxetine 30 MG CAP (CYMBALTA) PO SCH (21:08)
[2019-07-02] MEDS: ATORVASTATIN 20 MG TAB PO SCH (21:08)
[2019-07-02] MEDS: AZITHROMYCIN INJ 500 MG, VIAL MATE ADAPTER 1 EACH in D5W 250 ML IV SCH (21:09)
[2019-07-02] MEDS: oxyCODONE 5MG TAB PO SCH (21:10)
[2019-07-02] MEDS: SYMBICORT 160/4.5MCG INHALER 6GM INH SCH (21:23)
[2019-07-02 22:00] VITALS: BP 129/67
[2019-07-02] MEDS: methylPREDNISolone INJ 125 MG/2 ML VIAL (J2930) IV SCH (23:45)
[2019-07-03 06:00] VITALS: BP 172/82
[2019-07-03] MEDS: LEVOTHYROXINE 75MCG TABLET (0.075MG) PO SCH (06:34)
[2019-07-03 06:45] LABS: HEMATOCRIT 34.5 % (36.0-47.0); HEMOGLOBIN 11.2 g/dl (12.0-15.5); MEAN CORPUSCULAR HEMOGLOBIN 27.5 pg (27.0-33.0); MEAN CORPUSCULAR HGB CONC 32.5 g/dl (32.0-36.5); MEAN CORPUSCULAR VOLUME 84.6 fl (80.0-96.0); PLATELET COUNT, AUTOMATED 151 10^3/uL (150-450); RED BLOOD COUNT 4.08 10^6/uL (4.00-5.40); WHITE BLOOD COUNT 9.8 10^3/uL (4.0-10.0)
[2019-07-03 06:57] LABS: CALCIUM LEVEL 8.6 MG/DL (8.8-10.2); CREATININE FOR GFR 1.11 MG/DL (0.55-1.30); GLOMERULAR FILTRATION RATE 51.3 (>39); POTASSIUM SERUM 4.9 MEQ/L (3.5-5.1)
[2019-07-03 07:00] VITALS: BP 172/82
[2019-07-03] MEDS: SYMBICORT 160/4.5MCG INHALER 6GM INH SCH ×2 (07:38→18:09)
[2019-07-03] MEDS: HumaLOG INSULIN (NovoLOG) PER UNIT SC SCH ×4 (09:29→20:51)
[2019-07-03] MEDS: CLOPIDOGREL 75 MG TAB PO SCH (09:31)
[2019-07-03] MEDS: oxyCODONE 5MG TAB PO SCH ×2 (09:31→20:52)
[2019-07-03] MEDS: amLODIPine 10 MG TAB PO SCH (09:31)
[2019-07-03] MEDS: lisinopriL 40 MG TAB PO SCH (09:31)
[2019-07-03] MEDS: **hydrALAZINE** 50 MG TAB PO SCH ×2 (09:31→20:50)
[2019-07-03] MEDS ORDERED: guaiFENesin SYRUP 200 MG/10 ML UDC PO PRN (10:00)
--- NOTE | 2019-07-03 10:28 | IPNPDOC ---
Text Note Date of Service The patient was seen on 07/03/19. NOTE Subjective: Patient seen and examined at bedside. Still complains of shortness of breath and cough, states her symptoms are slightly worse than her typical chronic baseline. Denies any other complaints. Did not participate with PT earlier this morning as she was too tired. Objective: PHYSICAL EXAMINATION: VITAL SIGNS: See below GENERAL APPEARANCE: elderly, frail, chronically ill appearing, cachectic HEENT: NC/AT CARDIOVASCULAR: +S1S2, RRR LUNGS: diminished breath sounds, CTA B/L ABDOMEN: soft, mild tenderness, +BS, left flank tenderness EXTREMITIES: no edema PSYCHIATRIC: AAOx3 HISTORY OF PRESENT ILLNESS: 73 yo female presented to ED at request of her PCP for abnormal labs, obtained yesterday (07/01/19), most notably potassium and hyperglycemia. On evaluation she noted a several day history of left flank pain and dysuria. She also notes chronic productive cough, which is slightly worse. She also notes chronic malaise and poor appetite. No history of travel, she s tates she essentially stays home all the time. Denies chest pain, N/V/D. ASSESSMENT: 73 yo female with extensive medical history, originally presents for hyperkalemia and hyperglycemia from labs obtained by her PCP, found to be short of breath with left flank pain, suspicious for PNA/COPD exacerbation, and UTI. #PNA - sputum culture pending - respiratory panel negative - continue Abx #left flank pain - resolved - possibly musculoskeletal - especially with increased cough - does note dysuria - possible UTI - as above - will receive antibiotics - UCx pending #renal artery stenosis - on CT A/P - severe right renal artery stenosis with right renal atrophy - this appears to be a new finding - previous recent imaging reviewed - already on appropriate medical therapy - ACEI - consider vascular c/s as outpatient - no inpatient services available at this time #IDDM - insulin sliding scale - carb consistent diet # chronic pain. - continue home regimen # L4 compression. # Right infarct of kidney. # PVD s/p RLE angioplasty with stenting. # CKD III - at baseline # Anxiety/depression. - continue duloxetine as per home regimen # Bladder cancer - as per records - followed by Dr. Astudillo. # Severe COPD/emphysema - lifetime smoker since the age of 11 - COPD exacerbation - IV steroids - supplemental O2 - IS/acapella/mucolytics # Peripheral vascular disease. # Hypercholesterolemia. # Hypothyroidism. - levothyroxine # HTN - ACEI as per home regimen # anemia # fatigue # CHF # RUL lung mass # DVT prophylaxis - mechanical VS,Fishbone, I+O VS, Fishbone, I+O Laboratory Tests 07/02/19 11:00 07/03/19 06:19 Vital Signs Date Time Temp Pulse Resp B/P (MAP) Pulse Ox O2 Delivery O2 Flow Rate FiO2 07/03/19 09:31 18 97 2.0 07/03/19 09:31 150/62 07/03/19 09:31 100 07/03/19 07:00 97.8 Nasal Cannula I&O- Last 24 Hours up to 6 AM 07/03/19 06:00 Intake Total 1185 ml Output Total 300 ml Balance 885 ml CHAYO WOODS MD July 03, 2019 10:28
[2019-07-03] MEDS: methylPREDNISolone INJ 125 MG/2 ML VIAL (J2930) IV SCH ×2 (11:05→23:47)
[2019-07-03 14:00] VITALS: BP 141/58
[2019-07-03] MEDS ORDERED: cefTRIAXone SOD 1 GM in D5W MINI-BAG PLUS 50 ML IV SCH (14:00)
[2019-07-03] MEDS: NORCO, ANEXSIA 5/325MG TABLET (HYDROcodone/ACETAMINOPHEN) PO PRN (17:23)
[2019-07-03] MEDS: DULoxetine 30 MG CAP (CYMBALTA) PO SCH (20:50)
[2019-07-03] MEDS: ATORVASTATIN 20 MG TAB PO SCH (20:50)
[2019-07-03] MEDS: AZITHROMYCIN INJ 500 MG, VIAL MATE ADAPTER 1 EACH in D5W 250 ML IV SCH (20:51)
[2019-07-03 22:00] VITALS: BP 142/70
[2019-07-04] MEDS: LEVOTHYROXINE 75MCG TABLET (0.075MG) PO SCH (05:36)
[2019-07-04 06:00] VITALS: BP 142/66
[2019-07-04 06:26] LABS: HEMATOCRIT 34.8 % (36.0-47.0); MEAN CORPUSCULAR HEMOGLOBIN 27.1 pg (27.0-33.0); MEAN CORPUSCULAR HGB CONC 31.6 g/dl (32.0-36.5); MEAN CORPUSCULAR VOLUME 85.7 fl (80.0-96.0); PLATELET COUNT, AUTOMATED 135 10^3/uL (150-450); RED BLOOD COUNT 4.06 10^6/uL (4.00-5.40); WHITE BLOOD COUNT 12.5 10^3/uL (4.0-10.0)
[2019-07-04 06:41] LABS: CALCIUM LEVEL 8.6 MG/DL (8.8-10.2); CREATININE FOR GFR 1.38 MG/DL (0.55-1.30); GLOMERULAR FILTRATION RATE 39.9 (>39); POTASSIUM SERUM 4.9 MEQ/L (3.5-5.1)
[2019-07-04] MEDS: SYMBICORT 160/4.5MCG INHALER 6GM INH SCH (07:32)
[2019-07-04 08:07] VITALS: BP 141/66
[2019-07-04] MEDS: CLOPIDOGREL 75 MG TAB PO SCH (08:07)
[2019-07-04] MEDS: amLODIPine 10 MG TAB PO SCH (08:07)
[2019-07-04] MEDS: **hydrALAZINE** 50 MG TAB PO SCH (08:07)
[2019-07-04] MEDS: lisinopriL 40 MG TAB PO SCH (08:07)
[2019-07-04] MEDS: HumaLOG INSULIN (NovoLOG) PER UNIT SC SCH ×2 (08:09→12:38)
[2019-07-04] MEDS: oxyCODONE 5MG TAB PO SCH (08:09)
[2019-07-04] MEDS ORDERED: CEFDINIR 300 MG CAP (OMNICEF) PO SCH (09:00)
[2019-07-04] MEDS ORDERED: AZITHROMYCIN 250MG TABLET PO SCH (09:00)
[2019-07-04] MEDS ORDERED: predniSONE 20 MG TAB PO ONE (11:00)
[2019-07-04] MEDS ORDERED: ALPRAZolam 0.5 MG TAB PO PRN (11:30)
[2019-07-04 14:00] VITALS: BP 116/54
--- NOTE | 2019-07-04 14:40 | IPNPDOC ---
Text Note Date of Service The patient was seen on 07/04/19. NOTE Subjective: Patient is a 73 year old female with PMHx of HTN, IDDM2, Diastolic CHF, Severe COPD / Emphysema, Chronic Nocturnal Hypoxia, RUL Mass, Hypothy roidism, Chronic back pain, Atrophic R kidney / Hx of Infarct, CKD3, Hx of Bladder CA (follows with Dr. Astudillo), Anemia, PVD s/p RLE Angioplasty / Stenting, Anxiety / Depression who presented to the ER at the direction of her PCP for abnormal lab work (Hyperkalemia / Hyponatremia / Hyperglycemia). Upon arrival to emergency room, patient had repeat lab work that was shown to show significant improvement. However, she did exhibit wheezing and shortness of breath. Patient was admitted to hospitalist service for suspected pneumonia and COPD exacerbation. Patient was seen and examined at the bedside. Currently she reports her breathing is at baseline. Denies any significant worsening of her cough. She denies any abdominal pain, N/V, diarrhea or constipation. She does report some urinary discomfort. Objective: Vitals (See below) General: Lying in bed, no acute distress, comfortable, AAOx3 HEENT: NC, AT CVS: RRR, +S1S2 Lungs: Fair air entry b/l, mild expiratory wheezing appreciate bilaterally Abdomen: Soft, ND, NT Extremities: No evidence of LE edema, - Calf tenderness Assessment and plan: Shortness of breath - possibly 2/2 acute COPD exacerbation / PNA 2/2 CAP - Reports improvement in breathing - Patient uses 2L NC at night, currently on 1 L NC during the day - Physical with improvement in aeration, mild wheezing persists - Hemodynamically stable and afebrile - Leukocytosis - Sputum culture 07/01: Many gram-positive cocci in chains, moderate gram- positive rods, few gram-negative rods - Respiratory panel 07/01: Negative - CTA Chest 07/01: No evidence of pulmonary embolism or aortic dissection. Mild patchy infiltrate right lower lobe. - Will DC solumedrol; Will start Prednisone taper - Will DC Ceftriaxone / Azithromycin; Will change to PO Cefdinir and Azithromycin s/p Left flank pain - possibly musculoskeletal - especially with increased cough - Reported dysuria - Urine culture negative / Urine culture negative - Antibiotics for PNA (noted above) Renal artery stenosis - Atrophic R kidney / Hx of Infarct; Imaging from 2018 revealed evidence right- sided renal atrophy - CT ab/pel 07/01: Severe atherosclerotic disease. Severe right renal artery stenosis and right renal atrophy. There is at least 50% narrowing of the celiac, superior and inferior mesenteric arteries. No free air or free fluid. Large amount of fecal material throughout the colon. - c/w MERE-inhibitor - Will have outpatient follow up with vascular surgery as outpatient - no inpatient services available at this time HTN - BP moderately controlled - c/w MERE-I / Hydralazine IDDM2 - c/w ISS Chronic Diastolic CHF - No evidence of exacerbation at this time Severe COPD / Emphysema - See above Chronic Nocturnal Hypoxia - Patient uses 2 L oxygen at night - Will continue the same RUL Mass - likely 2/2 infectious etiology - Reported to have improved on imaging on 09/17/2016, compared to 07/24/2016 Hypothyroidism - c/w Levothyroxine Chronic back pain - Will reduce dose of Opiates because patient has been sleepy / fatigued all day - Will c/w PT and OT CKD3 - Cr baseline of 1.0-1.5 - Cr currently at baseline Hx of Bladder CA - Follows with Dr. Astudillo Anemia - Hg appears stable PVD s/p RLE Angioplasty / Stenting - c/w Atorvastatin and Plavix Anxiety / Depression - c/w Duloxetine DVT prophylaxis - c/w TEDs/Sequentials Disposition: - Will c/w PT and OT VS,William, I+O VS, William, I+O Laboratory Tests 07/04/19 06:06 Vital Signs Date Time Temp Pulse Resp B/P (MAP) Pulse Ox O2 Delivery O2 Flow Rate FiO2 07/04/19 09:00 1.0 07/04/19 08:07 141/66 07/04/19 08:07 94 07/04/19 06:00 98.6 18 94 Room Air I&O- Last 24 Hours up to 6 AM 07/04/19 05:59 Intake Total 955 ml Output Total 800 ml Balance 155 ml BERENICE BACH MD July 04, 2019 13:25
[2019-07-04] MEDS ORDERED: NS 1,000 ML IV SCH (15:00)
[2019-07-04] MEDS ORDERED: PRED10TA2 PO (20:01)
[2019-07-04] MEDS ORDERED: AZIT-12 PO (20:01)
[2019-07-04] MEDS ORDERED: CEFD300CAP PO (20:01)
[2019-07-04] MEDS ORDERED: oxyCODONE 5MG TAB PO SCH (21:00)
--- NOTE | 2019-07-04 21:17 | DS.PDOC ---
Discharge Summary General Date of Admission July 02, 2019 at 15:30 Date of Discharge 07/04/2019 Discharge Summary PROCEDURES PERFORMED DURING STAY: [None]. ADMITTING DIAGNOSES / DISCHARGE DIAGNOSES: Shortness of breath - possibly 2/2 acute COPD exacerbation / PNA 2/2 CAP s/p Left flank pain - possibly musculoskeletal - especially with increased cough Renal artery stenosis HTN IDDM2 Chronic Diastolic CHF Severe COPD / Emphysema Chronic Nocturnal Hypoxia RUL Mass - likely 2/2 infectious etiology Hypothyroidism Chronic back pain CKD3 Hx of Bladder CA Anemia PVD s/p RLE Angioplasty / Stenting Anxiety / Depression DVT prophylaxis COMPLICATIONS/CHIEF COMPLAINT: Left Flank Pain. HISTORY OF PRESENT ILLNESS: Patient is a 73 year old female with PMHx of HTN, IDDM2, Diastolic CHF, Severe COPD / Emphysema, Chronic Nocturnal Hypoxia, RUL Mass, Hypothyroidism, Chronic back pain, Atrophic R kidney / Hx of Infarct, CKD3, Hx of Bladder CA (follows with Dr. Astudillo), Anemia, PVD s/p RLE Angioplasty / Stenting, Anxiety / Depression who presented to the ER at the direction of her PCP for abnormal lab work (Hyperkalemia / Hyponatremia / Hyperglycemia). Upon arrival to emergency room, patient had repeat lab work that was shown to show significant improvement. However, she did exhibit wheezing and shortness of breath. Patient was admitted to hospitalist service for suspected pneumonia and COPD exacerbation. Patient was seen and examined at the bedside. Nursing staff had reported that patient was smoking a cigarette while on oxygen in her bed. Nursing staff had stopped patient from smoking. Nicotine patch was supplied, patient refused to relinquish cigarettes and demanded to leave. Patient was advised that she has not been cleared for discharge as she has not cleared PT. She is not safe to go home. Patient was informed of risks / benefits of staying (see below). Despite this she was adamant about leaving now. Patient has signed AMA paperwork. Medications including prednisone and antibiotics were sent to pharmacy and she was advised to follow up with PCP and return to the ER if she experience any problems. HOSPITAL COURSE: Shortness of breath - possibly 2/2 acute COPD exacerbation / PNA 2/2 CAP - Reports improvement in breathing / and physical with mild wheezing - Patient uses 2L NC at night, currently on 1 L NC during the day - Hemodynamically stable and afebrile - Leukocytosis - Sputum culture 07/01: Many gram-positive cocci in chains, moderate gram- positive rods, few gram-negative rods - Respiratory panel 07/01: Negative - CTA Chest 07/01: No evidence of pulmonary embolism or aortic dissection. Mild patchy infiltrate right lower lobe. - Will DC solumedrol; Will start Prednisone taper; will continue on discharge - Will DC Ceftriaxone / Azithromycin; Will change to PO Cefdinir and Azithromycin; will continue on discharge - Risks were explained to her including but not limited to; worsening of medical condition, disability and / or - Patient has verbalized understanding; hast left AMA s/p Left flank pain - possibly musculoskeletal - especially with increased cough - Reported dysuria - Urine culture negative / Urine culture negative - Antibiotics for PNA (noted above) Renal artery stenosis - Atrophic R kidney / Hx of Infarct; Imaging from 2019 revealed evidence right- sided renal atrophy - CT ab/pel 07/01: Severe atherosclerotic disease. Severe right renal artery stenosis and right renal atrophy. There is at least 50% narrowing of the celiac, superior and inferior mesenteric arteries. No free air or free fluid. Large amount of fecal material throughout the colon. - c/w MERE-inhibitor - Will have outpatient follow up with vascular surgery as outpatient HTN - BP moderately controlled - c/w MERE-I / Hydralazine IDDM2 - c/w ISS Chronic Diastolic CHF - No evidence of exacerbation at this time Severe COPD / Emphysema - See above Chronic Nocturnal Hypoxia - Patient uses 2 L oxygen at night - Will continue the same RUL Mass - likely 2/2 infectious etiology - Reported to have improved on imaging on 09/17/2016, compared to 07/24/2016 Hypothyroidism - c/w Levothyroxine Chronic back pain - Will reduce dose of Opiates because patient has been sleepy / fatigued all day - Will c/w PT and OT; patient has not cleared and despite this would like to leave against medical advise - Risks were explained to her including but not limited to; worsening of medical condition, disability and / or - Patient has verbalized understanding; hast left AMA CKD3 - Cr baseline of 1.0-1.5 - Cr currently at baseline Hx of Bladder CA - Follows with Dr. Astudillo Anemia - Hg appears stable PVD s/p RLE Angioplasty / Stenting - c/w Atorvastatin and Plavix Anxiety / Depression - c/w Duloxetine DVT prophylaxis - c/w TEDs/Sequentials DISCHARGE MEDICATIONS: Please see below. ALLERGIES: Please see below. PHYSICAL EXAMINATION ON DISCHARGE: Vitals (See below) General: Lying in bed, appears agitated, AAOx3 HEENT: NC, AT CVS: +S1S2 Lungs: Fair air entry b/l, still with mild expiratory wheezing appreciate bilaterally Abdomen: Soft, non-distended, non-tender Extremities: No evidence of LE edema, - Calf tenderness LABORATORY DATA: Please see below. ACTIVITY: [As tolerated]. DISCHARGE PLAN: Follow up with PCP within 7 days Remain compliant with treatment plan and medications Return to the ER if you experience any problems DISPOSITION: Against Medical Advice. DISCHARGE CONDITION: [Stable]. TIME SPENT ON DISCHARGE: 20 minutes Vital Signs/I&Os Vital Signs Date Time Temp Pulse Resp B/P (MAP) Pulse Ox O2 Delivery O2 Flow Rate FiO2 07/04/19 14:00 98.6 82 16 116/54 (74) 98 Room Air 07/04/19 09:00 1.0 I&O- Last 24 Hours up to 6 AM 07/04/19 05:59 Intake Total 955 ml Output Total 800 ml Balance 155 ml Laboratory Data Labs 24H Laboratory Tests 2 07/04/19 06:06: Nucleated Red Blood Cells % (auto) 0.0, Anion Gap 7L, Glomerular Filtration Rate 39.9, Calcium Level 8.6L 07/04/19 11:43: Bedside Glucose (Misc Panel) 424H 07/04/19 16:54: Bedside Glucose (Misc Panel) 213H CBC/BMP Laboratory Tests 07/04/19 06:06 FSBS Laboratory Tests Test 07/04/19 11:43 07/04/19 16:54 Range/Units Bedside Glucose (Misc Panel) 424 213 83-110 MG/DL Microbiology Microbiology 07/02/19 Gram Stain - Final, Complete 07/02/19 Sputum Culture - Final, Complete 07/02/19 Urine Culture - Final, Complete 07/02/19 Blood Culture - Preliminary, Resulted No Growth after 48 hours. All Specime... 07/02/19 Respiratory Virus Panel (PCR) (SANDRA) - Final, Complete 07/02/19 Blood Culture - Preliminary, Resulted No Growth after 48 hours. All Specime... Discharge Medications Scheduled Amlodipine Besylate (Amlodipine Besylate) 10 Mg Tablet, 10 MG PO DAILY, (Reported) Atorvastatin Calcium (Atorvastatin Calcium) 40 Mg Tablet, 40 MG PO QHS, (Reported) Azithromycin (Azithromycin) 250 Mg Tablet, 250 MG PO DAILY Budesonide/Formoterol (Symbicort 160-4.5 Mcg Inhaler) 6 Gm Hfa.aer.ad, 2 PUFF INH BID, (Reported) Cefdinir (Cefdinir) 300 Mg Capsule, 1 CAP PO BID Clopidogrel Bisulfate (Plavix) 75 Mg Tablet, 75 MG PO DAILY, (Reported) Cyanocobalamin (Cyanocobalamin Injection) 1,000 Mcg/1 Ml Vial, 1,000 MCG IM QMONTH, (Reported) Duloxetine HCl (Duloxetine HCl) 60 Mg Capsule.dr, 60 MG PO QPM, (Reported) Hydralazine HCl (Hydralazine HCl) 50 Mg Tablet, 50 MG PO BID, (Reported) Insulin Glargine,Hum.rec.anlog (Basaglar Kwikpen U-100) 100 Unit/1 Ml Insuln.pen, 20 UNIT SC DAILY, (Reported) Levothyroxine Sodium (Levothyroxine Sodium) 75 Mcg Tablet, 75 MCG PO DAILY, (Reported) Lisinopril (Lisinopril) 40 Mg Tablet, 40 MG PO DAILY, (Reported) Oxycodone Hcl (Oxycodone HCl) 20 Mg Tablet, 20 MG PO BID, (Reported) Prednisone (Prednisone) 10 Mg Tablet, 10 MG PO DAILY, (Reported) Prednisone (Prednisone) 10 Mg Tablet, 10 MG PO TAPER Take 4 tabs daily x 3 days, then 3 tabs daily x 3 days, then 2 tabs daily x 3 days, then 1 tab daily x 3 days and stop Scheduled PRN Albuterol Sulfate (Proair Hfa) 8.5 Gm Hfa.aer.ad, 2 PUFF INH QID PRN for SOB/WHEEZING, (Reported) Albuterol Sulfate (Albuterol Sulfate) 2.5 Mg/0.5 Ml Vial.neb, 1 VIAL NEB Q6H PRN for SOB/WHEEZING, (Reported) Alprazolam (Alprazolam) 1 Mg Tablet, 1 MG PO DAILY PRN for ANXIETY, (Reported) Hydrocodone/Acetaminophen (Hydrocodone-Acetamin 5-325 mg) 1 Each Tablet, 1 TAB PO BID PRN for pain, (Reported) Allergies Coded Allergies: Sulfa (Sulfonamide Antibiotics) (Verified Allergy, Intermediate, RASH, 07/02/19) bacitracin (Verified Allergy, Intermediate, RASH, 07/02/19) cortisone (Verified Allergy, Intermediate, RASH, 07/02/19) neomycin (Verified Allergy, Intermediate, RASH, 07/02/19) polymyxin B (Verified Allergy, Intermediate, RASH, 07/02/19) red dye (Verified Allergy, Intermediate, rash OCCURRED ONCE WITH CAPSULE MED NO OTHER PROBLEMS WIT, 07/02/19) fluoxetine (Verified Allergy, Unknown, 07/02/19) tramadol (Verified Allergy, Unknown, 07/02/19) HAS HAD OXYCODONE BEFORE WITHOUT ISSUE BERENICE BACH MD July 04, 2019 21:17
[2019-07-05] MEDS ORDERED: NICOTINE 21MG/24HR 1 EA TRANSDERMAL TD SCH (09:00)
[2019-07-05] MEDS ORDERED: predniSONE 20 MG TAB PO SCH (09:00)
== END 2019-07-04 17:24 | disposition left against medical advice (07) | DRG 190 ==
LOC: M ED 10:13 → M ED INP 15:30 → ENRESERV 15:51 → M MSPAV 16:15
PROVIDERS: ADMIT Internal Medicine; ATTEND Internal Medicine
DX: J44.1 Chronic obstructive pulmonary disease with (acute) exacerbation (principal); J18.9 Pneumonia, unspecified organism; I13.0 Hypertensive heart and chronic kidney disease with heart failure and stage 1 through stage 4 chronic kidney disease, or unspecified chronic kidney disease; I50.32 Chronic diastolic (congestive) heart failure; R53.83 Other fatigue; G89.29 Other chronic pain; N18.3 Chronic kidney disease, stage 3 (moderate); F41.9 Anxiety disorder, unspecified; F32.9 Major depressive disorder, single episode, unspecified; J44.0 Chronic obstructive pulmonary disease with (acute) lower respiratory infection; E78.00 Pure hypercholesterolemia, unspecified; E11.51 Type 2 diabetes mellitus with diabetic peripheral angiopathy without gangrene; E03.9 Hypothyroidism, unspecified; D64.9 Anemia, unspecified; R10.32 Left lower quadrant pain; I70.1 Atherosclerosis of renal artery; R91.8 Other nonspecific abnormal finding of lung field; F17.210 Nicotine dependence, cigarettes, uncomplicated; E11.65 Type 2 diabetes mellitus with hyperglycemia; Z79.02 Long term (current) use of antithrombotics/antiplatelets; Z79.52 Long term (current) use of systemic steroids; Z79.891 Long term (current) use of opiate analgesic; Z79.4 Long term (current) use of insulin; Z79.899 Other long term (current) drug therapy; Z88.2 Allergy status to sulfonamides; Z88.1 Allergy status to other antibiotic agents; Z88.5 Allergy status to narcotic agent; Z88.8 Allergy status to other drugs, medicaments and biological substances; Z91.048 Other nonmedicinal substance allergy status; Z85.51 Personal history of malignant neoplasm of bladder; Z95.820 Peripheral vascular angioplasty status with implants and grafts

== ENCOUNTER → 2019-07-20 | Outpatient (REF) | payer MEDICARE ==
[~2019-07-20] MED LIST changes: +ALB2.5NEB NEB; +ALPR1TAB3 PO; +ATOR40TA75 PO; +AZIT-12 PO; +BASA100I SC; +CEFD300CAP PO; +CYAN1000VL IM; +DULO60CA35 PO; +LEVO75TA4 PO; +OXYC20TA2 PO; +PLAV1TAB2 PO; +SYMB16INH INH
== END ==
LOC: M LAB REF 17:20
PROVIDERS: ATTEND Physician Assistant
DX: J18.9 Pneumonia, unspecified organism (principal)

== ENCOUNTER 2019-08-26 18:34 | Emergency (ER) | payer MEDICARE ==
[~2019-08-26] VITALS: Ht 160 cm; Wt 47.5 kg
[~2019-08-26 18:34] MED LIST changes: -AMLO10TA5 PO; +AMLO1TAB24 PO; +AMLO1TAB25 PO; -AMLO5TAB6 PO; -LISI-1034 PO; +LISI2.5T8 PO
[2019-08-26] MEDS ORDERED: NS 1,000 ML IV ONE (19:00)
[2019-08-26 19:31] LABS: BASO % 0.3 % (0.0-1.0); EOS % 0.3 % (0.0-3.0); HEMATOCRIT 38.7 % (36.0-47.0); HEMOGLOBIN 12.9 g/dl (12.0-15.5); LYMPH # 0.8 10^3/uL (1.5-5.0); LYMPH % 7.1 % (24.0-44.0); MEAN CORPUSCULAR HEMOGLOBIN 29.7 pg (27.0-33.0); MEAN CORPUSCULAR HGB CONC 33.3 g/dl (32.0-36.5); MEAN CORPUSCULAR VOLUME 89.2 fl (80.0-96.0); MONO # 0.5 10^3/uL (0.0-0.8); MONO % 4.4 % (0.0-5.0); NEUTROPHILS # 10.1 10^3/uL (1.5-8.5); NEUTROPHILS % 87.4 % (36.0-66.0); PLATELET COUNT, AUTOMATED 188 10^3/uL (150-450); RED BLOOD COUNT 4.34 10^6/uL (4.00-5.40); WHITE BLOOD COUNT 11.6 10^3/uL (4.0-10.0)
[2019-08-26 20:09] LABS: VENOUS BASE EXCESS -1.7 (-2.0-2.0); VENOUS HCO3 21.3 MEQ/L (23.0-27.0); VENOUS O2 SATURATION 88.6 % (60.0-80.0); VENOUS PARTIAL PRESSURE O2 52.1 mmHg (30.0-50.0); VENOUS PH 7.454 UNITS (7.330-7.430); VENOUS STANDARD HCO3 22.8 MEQ/L; VENOUS TOTAL CO2 22.2 MEQ/L (24.0-28.0)
[2019-08-26 20:17] LABS: OSMOLALITY SERUM 313 MOSM/KG (280-301)
[2019-08-26 20:40] LABS: ACETONE/KETONE 2.05 MG/DL (<2.81); ALBUMIN 3.4 GM/DL (3.2-5.2); ALT/SGPT 44 U/L (12-78); BILIRUBIN,DIRECT < 0.1 MG/DL (0.0-0.2); BILIRUBIN,TOTAL 0.4 MG/DL (0.2-1.0); BLOOD UREA NITROGEN 27 MG/DL (7-18); CALCIUM LEVEL 8.8 MG/DL (8.8-10.2); CARBON DIOXIDE LEVEL 23 MEQ/L (21-32); CHLORIDE LEVEL 100 MEQ/L (98-107); CK-MB VALUE MASS 4.4 NG/ML (<3.6); CPK CREATINE PHOSPHOKINASE 68 U/L (26-192); CREATININE FOR GFR 1.36 MG/DL (0.55-1.30); GLOMERULAR FILTRATION RATE 40.6 (>39); GLUCOSE, FASTING 553 MG/DL (70-100); LIPASE 293 U/L (73-393); MAGNESIUM LEVEL 2.2 MG/DL (1.8-2.4); MB/CK RELATIVE INDEX 6.47 (< OR =4); PHOSPHORUS LEVEL 3.3 MG/DL (2.5-4.9); POTASSIUM SERUM 4.9 MEQ/L (3.5-5.1); SODIUM LEVEL 133 MEQ/L (136-145); TOTAL PROTEIN 6.6 GM/DL (6.4-8.2); TROPONIN I 0.04 NG/ML (< 0.10)
--- NOTE | 2019-08-26 21:02 | ECGEPIP ---
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
[2019-08-26 21:15] LABS: HEMOGLOBIN A1c 9.9 %
[2019-08-26 22:00] VITALS: BP 184/84
== END 2019-08-26 22:14 | disposition home or self-care (01) ==
LOC: EDBD 18:34 → M ED 18:34
DX: E11.65 Type 2 diabetes mellitus with hyperglycemia (principal); R94.31 Abnormal electrocardiogram [ECG] [EKG]; I13.0 Hypertensive heart and chronic kidney disease with heart failure and stage 1 through stage 4 chronic kidney disease, or unspecified chronic kidney disease; N18.3 Chronic kidney disease, stage 3 (moderate); I50.9 Heart failure, unspecified; J44.9 Chronic obstructive pulmonary disease, unspecified; M54.5 Low back pain; G89.29 Other chronic pain; F41.9 Anxiety disorder, unspecified; F33.9 Major depressive disorder, recurrent, unspecified; F17.210 Nicotine dependence, cigarettes, uncomplicated; Z79.4 Long term (current) use of insulin; Z79.52 Long term (current) use of systemic steroids; Z79.01 Long term (current) use of anticoagulants; Z79.890 Hormone replacement therapy; Z88.2 Allergy status to sulfonamides; Z88.1 Allergy status to other antibiotic agents; Z88.8 Allergy status to other drugs, medicaments and biological substances; Z88.5 Allergy status to narcotic agent; Z91.02 Food additives allergy status

== ENCOUNTER → 2019-09-01 | Outpatient (CLI) | payer MEDICARE ==
[2019-09-01 14:23] LABS: BASO # 0.1 10^3/uL (0.0-0.2); BASO % 0.6 % (0.0-1.0); EOS # 0.3 10^3/uL (0.0-0.5); EOS % 2.3 % (0.0-3.0); HEMATOCRIT 43.6 % (36.0-47.0); HEMOGLOBIN 14.4 g/dl (12.0-15.5); LYMPH # 1.6 10^3/uL (1.5-5.0); LYMPH % 11.6 % (24.0-44.0); MEAN CORPUSCULAR HEMOGLOBIN 29.9 pg (27.0-33.0); MEAN CORPUSCULAR VOLUME 90.6 fl (80.0-96.0); MONO % 7.4 % (0.0-5.0); NEUTROPHILS # 10.9 10^3/uL (1.5-8.5); NEUTROPHILS % 77.6 % (36.0-66.0); PLATELET COUNT, AUTOMATED 212 10^3/uL (150-450); RED BLOOD COUNT 4.81 10^6/uL (4.00-5.40); WHITE BLOOD COUNT 14.1 10^3/uL (4.0-10.0)
[2019-09-01 14:52] LABS: ALBUMIN 4.1 GM/DL (3.2-5.2); BILIRUBIN,TOTAL 0.5 MG/DL (0.2-1.0); CALCIUM LEVEL 10.1 MG/DL (8.8-10.2); CHOLESTEROL RISK RATIO 3.56 (<5); CREATININE FOR GFR 1.1 MG/DL (0.55-1.30); FREE T4 1.33 NG/DL (0.76-1.46); GLOMERULAR FILTRATION RATE 51.7 (>39); POTASSIUM SERUM 5.4 MEQ/L (3.5-5.1); THYROID STIMULATING HORMONE 0.791 uIU/ML (0.358-3.740); TOTAL PROTEIN 7.2 GM/DL (6.4-8.2)
[2019-09-01 14:53] LABS: TOTAL 25(OH) VITAMIN D 20.2 NG/ML (30.0-100.0)
[2019-09-01 15:21] LABS: MAU/CREAT RATIO 2715.3 MCG/MG (0.0-30.0)
== END ==
LOC: M PLALAB 10:54
PROVIDERS: ATTEND Nurse Practitioner Family
DX: I70.1 Atherosclerosis of renal artery (principal); I10 Essential (primary) hypertension; E11.65 Type 2 diabetes mellitus with hyperglycemia

== ENCOUNTER → 2019-09-29 | Outpatient (CLI) | payer MEDICARE ==
--- NOTE | 2019-11-04 09:22 | REP ---
URINARY TRACT SONOGRAPHY AND RENAL ARTERY DOPPLER ASSESSMENT HISTORY: Hypertension. Rule out main renal stenosis. URINARY TRACT SONOGRAPHY FINDINGS: Scanning at the level of the urinary bladder is unremarkable. Renal cortical echogenicity pattern slightly increased. No hydronephrosis is seen on either side. Right kidney measures 8.3 x 4.3 x 4.4 cm. Left renal dimensions are 12.6 x 5.6 x 5.9 cm. There is a 2.0 cm cyst in the upper pole of the right kidney. RENAL ARTERY DOPPLER FINDINGS Peak systolic flow velocity in the abdominal aorta at the level of the main renal arteries is normal at 109 cm/s. Neither main renal artery could be visualized on two-dimensional or Doppler interrogation. Overlying bowel gas and severely calcified vessels render it technically impossible. There is some atrophy of the right kidney. Resistive indices and acceleration times are measured in the upper, mid, and lower pole of intralobar arteries of each kidney and these values are abnormal with decreased resistive indices and increased acceleration times on the right. On the left, these values are normal. IMPRESSION: The main renal arteries could not be directly visualized. Intralobar arteries on the right show resistive indices and acceleration times suggestive of renal artery stenosis. Intralobar Doppler data on the left is unremarkable. There is some atrophy of the right kidney and there is a small cyst in the upper pole of the right kidney, 2 cm in diameter. [facility]
--- NOTE | 2019-11-04 09:23 | REP ---
BILATERAL LOWER EXTREMITY ARTERIAL DOPPLER ULTRASOUND HISTORY: Leg pain, rule out peripheral arterial disease. Diabetes. FINDINGS: There is extensive severe calcific plaquing. External iliac and common femoral arteries are involved bilaterally. The right superficial femoral artery is occluded from proximal to distal. Calf vessels are poorly seen and heavily calcified on the right. Distal posterior tibial artery is not seen. The left superficial femoral artery is felt to be occluded proximally and revascularized at mid SFA level with very slow throughout the rest of the leg. There is proximal profunda artery stenosis on the left, 2:1 velocity ratio. Calf vessels are very small on the left and difficult to see as well. BILATERAL LOWER EXTREMITY ARTERIAL DOPPLER VELOCITY PSV RIGHT (cm/s) PSV LEFT (cm/s) TIRE ADJUSTER 207 162 Profunda 201 249 Proximal SFA Occluded Occluded Mid-SFA Occluded Revascularized flow 10 Distal SFA Occluded Not seen Popliteal 36 22 Proximal ANGELITA 51 32 Tibioperoneal trunk Not seen Not seen Proximal BUSINESS SUPPORT SPECIALIST 47 33 Distal BUSINESS SUPPORT SPECIALIST Not seen 17 Distal ANGELITA 54 42 MTDD
== END ==
LOC: M RAD 12:32
PROVIDERS: ATTEND Physician Assistant
DX: I70.213 Atherosclerosis of native arteries of extremities with intermittent claudication, bilateral legs (principal); I70.1 Atherosclerosis of renal artery; N28.1 Cyst of kidney, acquired; N26.1 Atrophy of kidney (terminal)

== ENCOUNTER → 2019-11-09 | Outpatient (CLI) | payer MEDICARE ==
[2019-11-09 15:31] LABS: HEMATOCRIT 44.8 % (36.0-47.0); HEMOGLOBIN 14.4 g/dl (12.0-15.5); MEAN CORPUSCULAR HEMOGLOBIN 29.8 pg (27.0-33.0); MEAN CORPUSCULAR HGB CONC 32.1 g/dl (32.0-36.5); MEAN CORPUSCULAR VOLUME 92.8 fl (80.0-96.0); PLATELET COUNT, AUTOMATED 214 10^3/uL (150-450); RED BLOOD COUNT 4.83 10^6/uL (4.00-5.40); WHITE BLOOD COUNT 13.6 10^3/uL (4.0-10.0)
[2019-11-09 20:15] LABS: CALCIUM LEVEL 9.8 MG/DL (8.8-10.2); CREATININE FOR GFR 1.04 MG/DL (0.55-1.30); GLOMERULAR FILTRATION RATE 55.1 (>39); POTASSIUM SERUM 5.4 MEQ/L (3.5-5.1)
== END ==
LOC: M LAB 15:09
PROVIDERS: ATTEND Physician Assistant
DX: I70.213 Atherosclerosis of native arteries of extremities with intermittent claudication, bilateral legs (principal)

== ENCOUNTER → 2019-11-15 | Outpatient (CLI) | payer MEDICARE ==
[~2019-11-15] MED LIST changes: +ISOVUE-370 76% 100ML VIAL As Ordered ONE
--- NOTE | 2019-11-22 10:28 | REP ---
CT ANGIOGRAPHY ABDOMINAL AORTA AND LOWER EXTREMITY RUNOFF ARTERIES WITH INTRAVENOUS (IV) CONTRAST HISTORY: Atherosclerosis. Bilateral intermittent claudication. Patient gives a history of carcinoma of the bladder. CT CONTRAST DOSE: 100 mL of intravenous Isovue-[address] TECHNIQUE: Helical scanning is acquired and 3-mm axial images are reformatted. Coronal and sagittal MIP and MPR images are generated and reviewed. A 3D surface rendered series is also generated and reviewed rotationally about the vertical axis. NONVASCULAR CT FINDINGS: There are fibrotic changes in the right lung base. There are granulomatous calcifications in the spleen. There is a wedge-shaped central area of the spleen, which enhances poorly compared to the rest of the splenic parenchyma. Question splenic infarct. There is a descending duodenal diverticulum. The right kidney is quite atrophic. There is moderate stool in the distal colon. VASCULAR FINDINGS: There is good opacification of the arterial tree. Extensive vascular calcification is noted. The celiac axis is calcific, but patent. There is some calcific plaquing and approximately 60% luminal narrowing at the origin of the superior mesenteric artery (SMA). Considerable calcific plaquing is seen in the mid superior mesenteric artery (SMA). There does appear to be contrast in the proximal inferior mesenteric artery (ROBERTO) although the distal inferior mesenteric artery (ROBERTO) does not enhance. There are bilateral common iliac artery stents noted in place. These appear to be bilaterally patent. There is atherosclerotic plaquing in the external iliac arteries bilaterally. There is extensive calcific plaquing in the common femoral arteries on both sides. Profunda femoral arteries appear to be patent bilaterally. The superficial femoral arteries are occluded bilaterally. There is so much atherosclerotic calcification that it is difficult to identify reconstitution, although both popliteal arteries are patent. Extensive superficial femoral artery plaquing is observed. There is three vessel runoff patency in the proximal calf on both sides. The anterior tibial artery crosses the ankle on the right. Patent anterior and posterior tibial arteries are seen crossing the ankle on the left. I suspect the right renal artery is occluded at its origin and related to the right renal atrophy. There is heavy vascular calcification at the origin and in the proximal centimeter and a half of the left renal artery suggesting some stenosis of the left renal artery as well. IMPRESSION: Marked vascular calcification. Patent bilateral common iliac artery stents. Bilateral superficial femoral artery occlusions with reconstitution of the popliteals. Possible splenic infarct. Suspected chronic occlusion of the right renal artery with atrophy of the right kidney. MTDD
== END ==
LOC: M RAD 15:15
PROVIDERS: ATTEND Physician Assistant
DX: I70.213 Atherosclerosis of native arteries of extremities with intermittent claudication, bilateral legs (principal); Z95.820 Peripheral vascular angioplasty status with implants and grafts
CPT/HCPCS: 75635; Q9967

== ENCOUNTER → 2019-12-30 | Outpatient (CLI) | payer MEDICARE ==
[~2019-12-30] MED LIST changes: -ISOVUE-370 76% 100ML VIAL As Ordered ONE
--- NOTE | 2019-12-30 16:26 | REP ---
INDICATION: LUNG SCREENING. COMPARISON: 07/02/2019 and 02/18/2018 TECHNIQUE: Axial noncontrast images from the thoracic inlet to the upper abdomen using low-dose lung screening technique (LDCT). As per the protocol only lung window images were sent to the read station for interpretation. FINDINGS: Abnormal pleuroparenchymal right upper lobe densities are again noted and appear stable. The asymmetric density seen previously in the right middle lobe has increased and today measures approximately 1.2 cm. This same area was not only smaller in size but appeared stable when compared to the 02/18/2018 exam. This asymmetric density is abutting the major fissure and is causing some tenting. The tenting, over, appears unchanged, however, when compared to the 01/16/[address] the degree of tending appears to have increased. The asymmetric density seen previously on the 07/02/2019 exam in the right lung base have improved significantly. There is cylindrical bronchiectasis again seen particularly in the lung bases and in the right upper lobe. Grossly the mediastinum and pulmonary ashley are unchanged. Grossly the imaged upper abdomen and imaged osseous structures are unchanged. There are no pleural or pericardial effusions. IMPRESSION: 1. Asymmetric density in the right middle lobe as described above. Consider PET-CT at this time as per the revised Fleischner society criteria. 2. There are chronic lung field changes, as described above, which appear stable. <Electronically signed by Dereck Biggs > 12/30/19 [id number]
== END ==
LOC: M RAD 14:15
PROVIDERS: ATTEND Internal Medicine Pulmonary Disease
DX: R91.8 Other nonspecific abnormal finding of lung field (principal); F17.218 Nicotine dependence, cigarettes, with other nicotine-induced disorders

== ENCOUNTER → 2020-01-03 | Outpatient (CLI) | payer MEDICARE ==
[2020-01-03 17:50] LABS: BASO # 0.1 10^3/uL (0.0-0.2); BASO % 0.6 % (0.0-1.0); EOS # 0.1 10^3/uL (0.0-0.5); EOS % 0.3 % (0.0-3.0); HEMATOCRIT 45.8 % (36.0-47.0); HEMOGLOBIN 14.8 g/dl (12.0-15.5); LYMPH # 0.9 10^3/uL (1.5-5.0); LYMPH % 5.7 % (24.0-44.0); MEAN CORPUSCULAR HEMOGLOBIN 30.5 pg (27.0-33.0); MEAN CORPUSCULAR HGB CONC 32.3 g/dl (32.0-36.5); MEAN CORPUSCULAR VOLUME 94.4 fl (80.0-96.0); MONO # 0.5 10^3/uL (0.0-0.8); NEUTROPHILS # 14.6 10^3/uL (1.5-8.5); NEUTROPHILS % 89.9 % (36.0-66.0); PLATELET COUNT, AUTOMATED 313 10^3/uL (150-450); RED BLOOD COUNT 4.85 10^6/uL (4.00-5.40); WHITE BLOOD COUNT 16.2 10^3/uL (4.0-10.0)
[2020-01-03 18:31] LABS: ALBUMIN 3.4 GM/DL (3.2-5.2); BILIRUBIN,TOTAL 0.6 MG/DL (0.2-1.0); CALCIUM LEVEL 9.6 MG/DL (8.8-10.2); CREATININE FOR GFR 1.42 MG/DL (0.55-1.30); FREE T4 1.58 NG/DL (0.76-1.46); GLOMERULAR FILTRATION RATE 38.5 (>39); THYROID STIMULATING HORMONE 1.34 uIU/ML (0.358-3.740); TOTAL PROTEIN 6.6 GM/DL (6.4-8.2)
[2020-01-03 19:09] LABS: HEMOGLOBIN A1c 8.7 %
== END ==
LOC: M PLALAB 15:06
PROVIDERS: ATTEND Nurse Practitioner Family
DX: E11.65 Type 2 diabetes mellitus with hyperglycemia (principal)

== ENCOUNTER → 2020-01-04 | Outpatient (REF) | payer MEDICARE | LOC: M LAB REF 16:51 | PROVIDERS: ATTEND Internal Medicine Pulmonary Disease | DX: R91.1 Solitary pulmonary nodule (principal) ==

== ENCOUNTER → 2020-01-18 | Outpatient (CLI) | payer MEDICARE | LOC: M PLARAD 13:11 | PROVIDERS: ATTEND Internal Medicine Pulmonary Disease | DX: R91.1 Solitary pulmonary nodule (principal); Z53.9 Procedure and treatment not carried out, unspecified reason ==

== ENCOUNTER 2020-02-19 20:33 | Emergency (ER) | payer MEDICARE ==
[~2020-02-19] VITALS: Ht 160 cm; Wt 54.3 kg
[2020-02-19] MEDS ORDERED: DEXTROSE 50% 50 ML SYRINGE As Ordered ONE (20:57)
[2020-02-19] MEDS ORDERED: DEXTROSE 50% 50 ML VIAL IV ONE (21:00)
[2020-02-19] MEDS ORDERED: COMBIVENT RESPIMAT 100-20MCG INHALER 4GM INH ONE (21:00)
[2020-02-19] MEDS ORDERED: methylPREDNISolone 125MG 2ML VIAL IV ONE (21:00)
[2020-02-19 21:13] LABS: BASO % 0.3 % (0.0-1.0); EOS # 0.1 10^3/uL (0.0-0.5); EOS % 0.5 % (0.0-3.0); HEMATOCRIT 40.2 % (36.0-47.0); HEMOGLOBIN 12.8 g/dl (12.0-15.5); LYMPH # 0.9 10^3/uL (1.5-5.0); LYMPH % 5.7 % (24.0-44.0); MEAN CORPUSCULAR HEMOGLOBIN 29.6 pg (27.0-33.0); MEAN CORPUSCULAR HGB CONC 31.8 g/dl (32.0-36.5); MEAN CORPUSCULAR VOLUME 93.1 fl (80.0-96.0); MONO # 0.5 10^3/uL (0.0-0.8); MONO % 3.4 % (0.0-5.0); NEUTROPHILS # 13.6 10^3/uL (1.5-8.5); NEUTROPHILS % 89.4 % (36.0-66.0); PLATELET COUNT, AUTOMATED 229 10^3/uL (150-450); RED BLOOD COUNT 4.32 10^6/uL (4.00-5.40); WHITE BLOOD COUNT 15.2 10^3/uL (4.0-10.0)
[2020-02-19 21:28] LABS: INR 0.98; PROTHROMBIN TIME 13.2 SECONDS (12.5-14.3)
[2020-02-19 21:29] LABS: PARTIAL THROMBOPLASTIN TIME 32.9 SECONDS (24.2-38.5)
[2020-02-19 21:47] LABS: ALBUMIN 2.8 GM/DL (3.2-5.2); BILIRUBIN,DIRECT 0.1 MG/DL (0.0-0.2); BILIRUBIN,TOTAL 0.4 MG/DL (0.2-1.0); CALCIUM LEVEL 8.8 MG/DL (8.8-10.2); CK-MB VALUE MASS 3.8 NG/ML (<3.6); CREATININE FOR GFR 0.99 MG/DL (0.55-1.30); FREE T4 1.43 NG/DL (0.76-1.46); GLOMERULAR FILTRATION RATE 58.4 (>39); MB/CK RELATIVE INDEX 6.33 (< OR =4); POTASSIUM SERUM 5.1 MEQ/L (3.5-5.1); THYROID STIMULATING HORMONE 1.47 uIU/ML (0.358-3.740); TOTAL PROTEIN 5.9 GM/DL (6.4-8.2); TROPONIN I 0.02 NG/ML (< 0.10)
--- NOTE | 2020-02-19 21:47 | REPVR ---
PROCEDURE INFORMATION: Exam: XR Chest, 1 View Exam date and time: 02/19/2020 9:38 PM Age: 74 years old Clinical indication: Chest pain TECHNIQUE: Imaging protocol: XR of the chest Views: 1 view. COMPARISON: CR PORTABLE CHEST X-RAY 07/02/2019 11:50 AM FINDINGS: Lungs: Chronic pleuroparenchymal scarring demonstrated in the lateral aspect of the right upper lobe with increased opacity in comparison to the prior study. Finding may indicate the presence of an associated infiltrate. Remaining lungs are clear. Pleural space: Unremarkable. No pleural effusion. No pneumothorax. Heart/Mediastinum: Unremarkable. No cardiomegaly. Vasculature: Uncoiled thoracic aorta. Bones/joints: Unremarkable. IMPRESSION: Chronic pleuroparenchymal scarring demonstrated in the lateral aspect of the right upper lobe with increased opacity in comparison to the prior study. Finding may indicate the presence of an associated infiltrate. Electronically signed by: Scooby Cassidy On 02/19/2020 21:47:25 PM
[2020-02-19 22:30] LABS: ABG BASE EXCESS 3.6 (-2.0-2.0); ABG HCO3 25.9 MEQ/L (22.0-26.0); ABG O2 SATURATION 98.5 % (95.0-99.0); ABG PARTIAL PRESSURE CO2 31.8 mmHg (35.0-45.0); ABG PARTIAL PRESSURE O2 144.6 mmHg (75.0-100.0); ABG STANDARD HCO3 27.7 MEQ/L (22.0-26.0); ABG TOTAL CO2 26.8 MEQ/L (23.0-31.0); ABG pH (ARTERIAL) 7.528 UNITS (7.350-7.450)
[2020-02-19] MEDS ORDERED: DEXTROSE 50% 50 ML SYRINGE IV STA (22:47)
[2020-02-19] MEDS ORDERED: ISOVUE-370 76% 100ML VIAL As Ordered ONE (23:06)
--- NOTE | 2020-02-19 23:56 | REPVR ---
PROCEDURE INFORMATION: Exam: CT Angiography Chest With Contrast Exam date and time: 02/19/2020 11:32 PM Age: 74 years old Clinical indication: Shortness of breath; Additional info: SOB TECHNIQUE: Imaging protocol: Computed tomographic angiography of the chest with intravenous contrast. 3D rendering (Not supervised by radiologist): MIP and/or 3D reconstructed images were created by the technologist. Radiation optimization: All CT scans at this facility use at least one of these dose optimization techniques: automated exposure control; mA and/or kV adjustment per patient size (includes targeted exams where dose is matched to clinical indication); or iterative reconstruction. Contrast material: ISOVUE 370; Contrast volume: 75 ml; Contrast route: INTRAVENOUS (IV); COMPARISON: CT ANGIO CHEST 07/02/2019 1:11 PM FINDINGS: Pulmonary arteries: The main pulmonary artery measures 26 mm. No pulmonary embolism is identified. Aorta: The ascending thoracic aorta measures 29 mm. Lungs: Coarse interstitium with mild scattered fibro-atelectatic change, greatest in the posterolateral right upper lobe which is similar to the prior study and consistent with scar. Pleural space: Unremarkable. No pneumothorax. No pleural effusion. Heart: Unremarkable. No cardiomegaly. No pericardial effusion. Lymph nodes: Unremarkable. No enlarged lymph nodes. Liver: There are some hepatic and splenic calcifications. Bones/joints: Degenerative disc changes in the mid thoracic spine. Soft tissues: Unremarkable. IMPRESSION: 1. Coarse interstitium with mild scattered fibro-atelectatic change, greatest in the posterolateral right upper lobe which is similar to 07/02/2019 and consistent with chronic change and scar. 2. Old granulomatous disease of the liver and spleen. 3. Otherwise negative CTA chest. No pulmonary embolism is identified. Electronically signed by: Darwin Zimmerman On 02/19/2020 23:57:05 PM
[2020-02-20] MEDS ORDERED: IPRATROPIUM 0.5MG/ALBUTEROL 2.5MG INH SOL UD 3ML (DUONEB) NEB ONE ×2 (00:30→01:30)
[2020-02-20] MEDS ORDERED: **hydrALAZINE** 50 MG TAB PO ONE (03:30)
[2020-02-20 03:43] VITALS: BP 147/76
[2020-02-20 03:50] VITALS: O2SAT 97
[2020-02-20] MEDS ORDERED: PRED20TA PO (04:29)
--- NOTE | 2020-02-20 06:38 | ECGEPIP ---
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1945 Requested By: OTTO Valdes Order Number: [id number] Reading MD: Sumit Amezcua Measurements Intervals [place] Rate: 82 P: 64 MN: 142 QRS: -20 QRSD: 102 T: 106 QT: 408 QTc: 477 Interpretive Statements SINUS RHYTHM LEFTWARD AXIS BASELINE ARTIFACT MAY AFFECT READING BASELINE WANDERING MAY AFFECT READING NONSPECIFIC ST T WAVE CHANGES INFERIOR MYOCARDIAL INFARCTION, OF INDETERMINATE AGE POSSIBLE ANTERIOR MYOCARDIAL INFARCTION, OF INDETERMINATE GE MODERATE T-WAVE ABNORMALITY, CONSIDER LATERAL ISCHEMIA CW 08/26/[address] T WAVE CHANGES Electronically Signed on 02-20-2020 6:37:27 EST by Sumit Amezcua
== END 2020-02-20 07:31 | disposition home or self-care (01) ==
LOC: M ED 20:33
DX: J44.1 Chronic obstructive pulmonary disease with (acute) exacerbation (principal); E11.649 Type 2 diabetes mellitus with hypoglycemia without coma; I13.0 Hypertensive heart and chronic kidney disease with heart failure and stage 1 through stage 4 chronic kidney disease, or unspecified chronic kidney disease; I50.9 Heart failure, unspecified; E07.9 Disorder of thyroid, unspecified; D64.9 Anemia, unspecified; N18.30 Chronic kidney disease, stage 3 unspecified; Z85.51 Personal history of malignant neoplasm of bladder; I73.9 Peripheral vascular disease, unspecified; E78.9 Disorder of lipoprotein metabolism, unspecified; Z88.2 Allergy status to sulfonamides; Z88.1 Allergy status to other antibiotic agents; Z88.5 Allergy status to narcotic agent; Z88.8 Allergy status to other drugs, medicaments and biological substances; Z91.018 Allergy to other foods; Z79.899 Other long term (current) drug therapy; Z79.52 Long term (current) use of systemic steroids; Z79.2 Long term (current) use of antibiotics; Z79.02 Long term (current) use of antithrombotics/antiplatelets
CPT/HCPCS: 36600; 71045; 71275; 80048; 80076; 82550; 82553; 82803; 83880; 84439; 84443; 84484; 85025; 85610; 85730; 87486; 87581; 87633; 87798; 93005; 93041; 94640; 96374; 99285; J2930; Q9967

== ENCOUNTER 2020-05-08 18:41 | Emergency (ER) | payer MEDICARE ==
[~2020-05-08] VITALS: Ht 157.5 cm; Wt 54.5 kg
[~2020-05-08 18:41] MED LIST changes: -LISI-538 PO; -LISI-542 PO; +LISI-898 PO; +LISI10TA22 PO; -LISI10TA4 PO; +LISI20TA33 PO; -LISI40TA PO; +LISI40TA4 PO; +PRED20TA PO
[2020-05-08] MEDS ORDERED: ACETAMINOPHEN *IV* 1,000 MG in IV 1 EA IV ONE (20:00)
[2020-05-08] MEDS ORDERED: ONDANSETRON 4MG/2ML VIAL IV ONE (20:00)
[2020-05-08] MEDS ORDERED: MORPHINE 4 MG/ML 1ML VIAL/SYRINGE (J2270) IV ONE (20:00)
--- NOTE | 2020-05-08 20:10 | ECGEPIP ---
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
[2020-05-08 21:20] LABS: HEMATOCRIT 42.9 % (36.0-47.0); MEAN CORPUSCULAR HEMOGLOBIN 30.4 pg (27.0-33.0); MEAN CORPUSCULAR HGB CONC 32.6 g/dl (32.0-36.5); MEAN CORPUSCULAR VOLUME 93.1 fl (80.0-96.0); PLATELET COUNT, AUTOMATED 187 10^3/uL (150-450); RED BLOOD COUNT 4.61 10^6/uL (4.00-5.40); WHITE BLOOD COUNT 17.1 10^3/uL (4.0-10.0)
[2020-05-08 21:34] LABS: ALBUMIN 3.1 GM/DL (3.2-5.2); BILIRUBIN,TOTAL 0.6 MG/DL (0.2-1.0); CALCIUM LEVEL 9.4 MG/DL (8.8-10.2); CK-MB VALUE MASS 4.5 NG/ML (<3.6); CREATININE FOR GFR 1.29 MG/DL (0.55-1.30); MB/CK RELATIVE INDEX 4.84 (< OR =4); POTASSIUM SERUM 5.2 MEQ/L (3.5-5.1); TOTAL PROTEIN 6.5 GM/DL (6.4-8.2); TROPONIN I 0.05 NG/ML (< 0.10)
--- NOTE | 2020-05-08 21:40 | REPVR ---
PROCEDURE INFORMATION: Exam: CT Lumbar Spine Without Contrast Exam date and time: 05/08/2020 8:57 PM Age: 74 years old Clinical indication: Low back pain; Additional info: Back pain with left le symptoms, any fracture? TECHNIQUE: Imaging protocol: Computed tomography images of the lumbar spine without contrast. Radiation optimization: All CT scans at this facility use at least one of these dose optimization techniques: automated exposure control; mA and/or kV adjustment per patient size (includes targeted exams where dose is matched to clinical indication); or iterative reconstruction. COMPARISON: MRI-Spine, L.S. without con 02/23/2018 11:22 AM FINDINGS: Vertebrae: Grade 2 anterolisthesis of L4 on L5 secondary to degenerative changes in the facet joints. L1-L2: No significant disc protrusion. No severe spinal canal stenosis. No significant neural foraminal narrowing. L2-L3: There is a severe central spinal stenosis at L2-L3 secondary to diffuse annular bulging, thickened ligamentum flavum with facet joint arthropathy. L3-L4: There is a moderate to severe central spinal stenosis at L3-L4 secondary to diffuse annular bulging, thickened ligamentum flavum with facet joint arthropathy. L4-L5: There is a severe central spinal stenosis at L4-L5 secondary to degenerative changes in the discs, ligaments and facet joints along with a grade 2 anterolisthesis of L4 on L5. L5-S1: Bulging annulus L5-S1 without evidence of a significant spinal stenosis. Bilateral facet joint arthropathy. Vasculature: Status post placement of a bifurcating endograft in the distal abdominal aorta. Soft tissues: Unremarkable. IMPRESSION: 1. Grade 2 anterolisthesis of L4 on L5 secondary to degenerative changes in the facet joints. 2. No fracture. 3. Severe central spinal stenosis L2-L3, moderate to severe central spinal stenosis L3-L4, and severe central spinal stenosis L4-L5. 4. Bulging annulus L5-S1 with bilateral facet joint arthropathy. Electronically signed by: Scooby Cassidy On 05/08/2020 21:40:35 PM
[2020-05-08] MEDS ORDERED: KETOROLAC 30 MG/ML 1ML VIAL IV ONE (22:00)
[2020-05-09] MEDS ORDERED: oxyCODONE 5MG TAB PO ONE ×3 (00:30→00:55)
[2020-05-09 01:00] VITALS: BP 151/75
== END 2020-05-09 01:22 | disposition home or self-care (01) ==
LOC: M ED 18:41
DX: M51.36 Other intervertebral disc degeneration, lumbar region (principal); M48.061 Spinal stenosis, lumbar region without neurogenic claudication; E11.9 Type 2 diabetes mellitus without complications; I10 Essential (primary) hypertension; J44.9 Chronic obstructive pulmonary disease, unspecified; E78.5 Hyperlipidemia, unspecified; N18.9 Chronic kidney disease, unspecified; F17.200 Nicotine dependence, unspecified, uncomplicated; Z79.4 Long term (current) use of insulin; Z79.51 Long term (current) use of inhaled steroids; Z79.52 Long term (current) use of systemic steroids; Z79.899 Other long term (current) drug therapy; Z88.1 Allergy status to other antibiotic agents; Z88.2 Allergy status to sulfonamides; Z88.8 Allergy status to other drugs, medicaments and biological substances; Z91.02 Food additives allergy status
CPT/HCPCS: 72131; 80053; 82550; 82553; 84484; 85027; 93005; 96365; 96375; 99285; J0131; J1885; J2270; J2405

== ENCOUNTER 2020-06-14 12:02 | Emergency (ER) | payer MEDICARE ==
[~2020-06-14] VITALS: Ht 157.5 cm; Wt 53.2 kg
--- NOTE | 2020-06-14 13:48 | REP ---
INDICATION: fall on thinners. COMPARISON: 02/19/2020. TECHNIQUE: Single portable AP view of the chest was performed. FINDINGS: Left lung remains clear. Diffuse fibrotic changes in the right lung with superior right pleural thickening are all unchanged. The heart is normal size. There is calcification of the thoracic aorta. The mediastinal silhouette is unchanged. IMPRESSION: No acute pulmonary disease.Stable chronic changes right lung. <Electronically signed by Boy Barrios > 06/14/20 [id number]
--- NOTE | 2020-06-14 14:06 | REP ---
INDICATION: fall on thinners. COMPARISON: Comparison head CT study July 31, 2016.. TECHNIQUE: Helical scanning is acquired. 5 mm axial images were reformatted. Coronal MPR images were generated. FINDINGS: Bone window settings demonstrate an intact bony calvarium. There is no evidence of skull fracture or incidental bony calvarial lesion. The visualized paranasal sinuses appear clear. No intraorbital abnormality is seen. On soft tissue window setting images; the lateral, third, and fourth ventricles are normal in size and position. Barrios-white differentiation pattern is normal above and below the tentorium. There are is no evidence of intracranial hemorrhage. No mass, edema, infarction, or midline shift is seen. No extra-axial fluid collection is appreciated. There is generalized volume loss. Mild small vessel changes are seen in the periventricular white matter of the frontal and parietal lobes. There is a small zone of low density in the head of the caudate nucleus on the right consistent with a lacunar infarct. This was not previously apparent and is age indeterminate. Heavy vascular calcification is observed. IMPRESSION: Vascular calcification, generalized volume loss and small vessel changes. Age indeterminate subcentimeter lacunar infarct in the head of the caudate nucleus on the right. Otherwise no acute intracranial abnormality... <Electronically signed by Aravind Sumner > 06/14/20 [id number]
--- NOTE | 2020-06-14 14:10 | REP ---
INDICATION: fall on thinners. COMPARISON: None. TECHNIQUE: Helical scanning is acquired and overlapping 2 mm high resolution axial images were generated and reviewed at bone and soft tissue window settings. Coronal and sagittal multiplanar re-formations images are generated. FINDINGS: There is no evidence of cervical spine element fracture. No skull base fracture is seen. Cervical vertebral body heights are preserved. Alignment is normal. Facet joints are normally aligned bilaterally at each cervical level on multiplanar re-formations images. There is no evidence of intraspinal or paraspinal hematoma. No extra vertebral abnormality is seen. There is extensive pleuroparenchymal fibrosis in the right lung apex. There are degenerative disc changes at C5-6 and C6-7. Osteoarthritic facet disease is noted bilaterally in the mid cervical spine. Extensive vascular calcification is observed. IMPRESSION: Degenerative spondylosis changes and extensive vascular calcification. No traumatic abnormality noted.. <Electronically signed by Aravind Sumner > 06/14/20 [id number]
[2020-06-14] MEDS ORDERED: COMBIVENT RESPIMAT 100-20MCG INHALER 4GM INH ONE (14:40)
[2020-06-14 14:45] LABS: BASO % 0.3 % (0.0-1.0); EOS # 0.1 10^3/uL (0.0-0.5); EOS % 0.5 % (0.0-3.0); HEMATOCRIT 34.7 % (36.0-47.0); HEMOGLOBIN 11.4 g/dl (12.0-15.5); LYMPH # 0.5 10^3/uL (1.5-5.0); LYMPH % 4.3 % (24.0-44.0); MEAN CORPUSCULAR HEMOGLOBIN 31.1 pg (27.0-33.0); MEAN CORPUSCULAR HGB CONC 32.9 g/dl (32.0-36.5); MEAN CORPUSCULAR VOLUME 94.6 fl (80.0-96.0); MONO # 0.4 10^3/uL (0.0-0.8); MONO % 3.1 % (2.0-8.0); NEUTROPHILS # 10.4 10^3/uL (1.5-8.5); NEUTROPHILS % 90.2 % (36.0-66.0); PLATELET COUNT, AUTOMATED 187 10^3/uL (150-450); RED BLOOD COUNT 3.67 10^6/uL (4.00-5.40); WHITE BLOOD COUNT 11.5 10^3/uL (4.0-10.0)
[2020-06-14 15:02] LABS: INR 0.96; PARTIAL THROMBOPLASTIN TIME 25.9 SECONDS (24.2-38.5)
[2020-06-14 15:16] LABS: ALBUMIN 2.6 GM/DL (3.2-5.2); ALT/SGPT 28 U/L (12-78); BILIRUBIN,DIRECT 0.2 MG/DL (0.0-0.2); BILIRUBIN,TOTAL 0.4 MG/DL (0.2-1.0); BLOOD UREA NITROGEN 34 MG/DL (7-18); CALCIUM LEVEL 8.8 MG/DL (8.8-10.2); CARBON DIOXIDE LEVEL 28 MEQ/L (21-32); CHLORIDE LEVEL 103 MEQ/L (98-107); CK-MB VALUE MASS 2.1 NG/ML (<3.6); CPK CREATINE PHOSPHOKINASE 54 U/L (26-192); CREATININE FOR GFR 0.96 MG/DL (0.55-1.30); GLOMERULAR FILTRATION RATE > 60.0 (>39); GLUCOSE, FASTING 458 MG/DL (70-100); LIPASE 178 U/L (73-393); MB/CK RELATIVE INDEX 3.89 (< OR =4); SODIUM LEVEL 137 MEQ/L (136-145); TOTAL PROTEIN 5.7 GM/DL (6.4-8.2); TROPONIN I 0.04 NG/ML (< 0.10)
[2020-06-14 15:33] VITALS: BP 134/70
[2020-06-14] MEDS ORDERED: cefTRIAXone SOD 1 GM in D5W MINI-BAG PLUS 50 ML IV ONE (16:00)
[2020-06-14] MEDS ORDERED: CEFD300C PO (17:10)
--- NOTE | 2020-06-14 20:32 | ECGEPIP ---
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
== END 2020-06-14 17:26 | disposition left against medical advice (07) ==
LOC: M ED 12:02 → EDBD 12:02 → M ED 17:26
DX: N39.0 Urinary tract infection, site not specified (principal); R53.1 Weakness; E11.65 Type 2 diabetes mellitus with hyperglycemia; I63.81 Other cerebral infarction due to occlusion or stenosis of small artery; Z53.9 Procedure and treatment not carried out, unspecified reason; S09.90XA Unspecified injury of head, initial encounter; W19.XXXA Unspecified fall, initial encounter; Y92.9 Unspecified place or not applicable; Y93.9 Activity, unspecified; Y99.9 Unspecified external cause status; Z79.01 Long term (current) use of anticoagulants; I50.9 Heart failure, unspecified; I10 Essential (primary) hypertension; G89.29 Other chronic pain; J44.9 Chronic obstructive pulmonary disease, unspecified; N18.30 Chronic kidney disease, stage 3 unspecified; R91.8 Other nonspecific abnormal finding of lung field; F32.9 Major depressive disorder, single episode, unspecified; F41.9 Anxiety disorder, unspecified; F17.200 Nicotine dependence, unspecified, uncomplicated; Z85.51 Personal history of malignant neoplasm of bladder; M47.812 Spondylosis without myelopathy or radiculopathy, cervical region; M50.80 Other cervical disc disorders, unspecified cervical region; J98.4 Other disorders of lung; Z79.4 Long term (current) use of insulin; Z79.899 Other long term (current) drug therapy; Z88.2 Allergy status to sulfonamides; Z88.1 Allergy status to other antibiotic agents; Z88.8 Allergy status to other drugs, medicaments and biological substances; Z88.5 Allergy status to narcotic agent; Z91.02 Food additives allergy status

== ENCOUNTER → 2020-06-26 | Outpatient (REF) | payer MEDICARE ==
[~2020-06-26] MED LIST changes: +CEFD300C PO
[2020-06-26 15:59] LABS: HEMOGLOBIN A1c 8.7 %
[2020-06-26 16:05] LABS: CHOLESTEROL RISK RATIO 3.403 (<5)
== END ==
LOC: M SFHCPLAZ 13:52
DX: E78.5 Hyperlipidemia, unspecified (principal); E11.9 Type 2 diabetes mellitus without complications

== ENCOUNTER 2020-07-14 14:46 | Emergency (ER) | payer MEDICARE ==
[~2020-07-14] VITALS: Ht 157.5 cm; Wt 52.3 kg
[2020-07-14] MEDS ORDERED: NORCO, ANEXSIA 5/325MG TABLET (HYDROcodone/ACETAMINOPHEN) PO ONE (15:55)
--- NOTE | 2020-07-14 16:48 | REP ---
INDICATION: fall. COMPARISON: None TECHNIQUE: Three views FINDINGS: There is a significant amount of stool seen in the rectosigmoid region completely obscuring the mid and lower sacrum and all of the coccyx. No definite acute fracture is seen on the lateral view. There are bilateral common iliac stents in place. There are bilateral hip degenerative changes. IMPRESSION: Limited exam as described above. CT recommended. <Electronically signed by Dereck Biggs > 07/14/20 [id number]
--- NOTE | 2020-07-14 16:58 | REP ---
INDICATION: fall. COMPARISON: 10/08/2015 TECHNIQUE: AP pelvis and two views of the right hip FINDINGS: There is irregularity of the superior cortical margin of the pubic symphysis on the right. This represents a change from the prior exam. There is no evidence of of a hip fracture. IMPRESSION: 1. There is a right pubic bone fracture. 2. CT the pelvis is recommended to rule out additional fractures. This should include all of the sacrum and coccyx. <Electronically signed by Dereck Biggs > 07/14/20 [id number]
[2020-07-14] MEDS ORDERED: OXYC-141 PO (17:00)
[2020-07-14] MEDS ORDERED: HYDR-643 PO (17:00)
[2020-07-14] MEDS ORDERED: ALEN70TA82 PO (17:00)
[2020-07-14] MEDS ORDERED: GLIP2.5T6 PO (17:00)
[2020-07-14] MEDS ORDERED: PRED5TA PO (17:00)
[2020-07-14] MEDS ORDERED: METF500T13 PO (17:00)
--- NOTE | 2020-07-14 17:33 | REP ---
INDICATION: fall. COMPARISON: 05/08/2020 TECHNIQUE: Axial noncontrast images of the lumbosacral spine from mid T12 through mid sacrum with coronal and sagittal reformations. This CT examination was performed using the following dose reduction techniques: Automated exposure control, adjustment of mA and/or kv according to the patient's size, and use of iterative reconstruction technique. FINDINGS: With the exception of chronic grade 2 anterolisthesis at the L4-5 level, alignment and lordosis is maintained. There is no evidence for acute fracture/compression injury or subluxation. Age-related osteopenia and moderate multilevel degenerative changes are noted. The spinal canal is patent. The posterior elements and spinous processes are intact. There is acute angulation at the S1-S2 level which is similar to prior examination and suggests subacute fracture for which clinical correlation is recommended to exclude a recent subacute fracture. IMPRESSION: 1. Chronic moderate to advanced multilevel degenerative changes including chronic anterolisthesis at the L4-5 level. 2. Possible subacute fracture at the S1-S2 level when compared with prior exam dated 05/08/2020 and correlation is recommended. No further acute lumbar vertebral body fracture/compression injury or acute subluxation is appreciated. <Electronically signed by Danis Greenfield > 07/14/20 1991
[2020-07-14 18:23] VITALS: BP 164/74
--- NOTE | 2020-07-14 18:39 | REPVR ---
PROCEDURE INFORMATION: Exam: CT Pelvis Without Contrast; Skeletal Exam date and time: 07/14/2020 5:44 PM Age: 74 years old Clinical indication: Injury or trauma; Fall; Blunt trauma (contusions or hematomas); Does not apply; Pelvic region; Additional info: Include sacrum and coccyx TECHNIQUE: Imaging protocol: Computed tomography images of the pelvis without contrast. Exam focused on the skeletal structures. Radiation optimization: All CT scans at this facility use at least one of these dose optimization techniques: automated exposure control; mA and/or kV adjustment per patient size (includes targeted exams where dose is matched to clinical indication); or iterative reconstruction. COMPARISON: CT ABD PELVIS W/O FOL BY WIT 07/02/2019 1:11 PM FINDINGS: Bones/joints: Symphysis and sacroiliac joints are aligned normally. No acute proximal femur or acetabular fracture. Old appearing left superior and inferior ramus fractures with heterotopic bone formation. Acute bilateral vertical sacral body insufficiency fractures. Transverse sacral fracture involving the S2 segment also present on the sagittal images No evidence of femoral head osteonecrosis. No osseous lesion. Hip joint spaces are appropriate for age. Lumbar spine degenerative disc and facet changes are present IMPRESSION: 1. Sacral insufficiency fractures involving the bilateral sacral body laterally and the S2 segment with transverse orientation. Probably some subacute or chronic component given the adjacent sclerosis. 2. 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 Electronically signed by: Jd Bustos On 07/14/2020 18:39:19 PM
--- NOTE | 2020-07-15 06:50 | ED PDOC ---
Post-Departure [facility]-Up [facility] appears to be pcp. ct pelvis and LS spine and hip xray faxed there Sumit Griggs MD Jul 15, 2020 06:50
== END 2020-07-14 18:36 | disposition left against medical advice (07) ==
LOC: M ED 14:46 → EDBD 14:46 → M ED 18:36
DX: S32.501A Unspecified fracture of right pubis, initial encounter for closed fracture (principal); W19.XXXA Unspecified fall, initial encounter; S32.10XA Unspecified fracture of sacrum, initial encounter for closed fracture; Z53.20 Procedure and treatment not carried out because of patient's decision for unspecified reasons; J44.9 Chronic obstructive pulmonary disease, unspecified; I10 Essential (primary) hypertension; F17.200 Nicotine dependence, unspecified, uncomplicated; Z88.1 Allergy status to other antibiotic agents; Z88.2 Allergy status to sulfonamides; Z88.8 Allergy status to other drugs, medicaments and biological substances; Y92.9 Unspecified place or not applicable; Y93.9 Activity, unspecified; Y99.9 Unspecified external cause status

== ENCOUNTER 2020-08-12 22:44 | Observation (INO) | payer MEDICARE ==
[~2020-08-12] VITALS: Ht 157.5 cm; Wt 50.2 kg
[~2020-08-12 22:44] MED LIST changes: +ALEN70TA82 PO; +GLIP2.5T6 PO; +HYDR-643 PO; +METF500T13 PO; +OXYC-141 PO
[2020-08-13] VITALS (7 sets, daily range): BP systolic 118–187; BP diastolic 50–88
[2020-08-13] MEDS ORDERED: DEXTROSE 50% 50 ML SYRINGE IV STA ×2 (00:24→01:31)
[2020-08-13] MEDS ORDERED: DEXTROSE 50% 50 ML SYRINGE As Ordered ONE (00:26)
[2020-08-13 01:00] LABS: BASO % 0.2 % (0.0-1.0); EOS % 0.1 % (0.0-3.0); HEMATOCRIT 36.6 % (36.0-47.0); HEMOGLOBIN 12.6 g/dl (12.0-15.5); LYMPH # 0.6 10^3/uL (1.5-5.0); LYMPH % 5.5 % (24.0-44.0); MEAN CORPUSCULAR HGB CONC 34.4 g/dl (32.0-36.5); MEAN CORPUSCULAR VOLUME 90.1 fl (80.0-96.0); MONO # 0.8 10^3/uL (0.0-0.8); MONO % 6.7 % (2.0-8.0); NEUTROPHILS # 9.7 10^3/uL (1.5-8.5); NEUTROPHILS % 86.7 % (36.0-66.0); PLATELET COUNT, AUTOMATED 171 10^3/uL (150-450); RED BLOOD COUNT 4.06 10^6/uL (4.00-5.40); WHITE BLOOD COUNT 11.1 10^3/uL (4.0-10.0)
--- NOTE | 2020-08-13 01:28 | REPVR ---
PROCEDURE INFORMATION: Exam: CT Head Without Contrast Exam date and time: 08/13/2020 12:55 AM Age: 74 years old Clinical indication: Altered mental status/memory loss; Confusion or disorientation TECHNIQUE: Imaging protocol: Computed tomography of the head without contrast. Radiation optimization: All CT scans at this facility use at least one of these dose optimization techniques: automated exposure control; mA and/or kV adjustment per patient size (includes targeted exams where dose is matched to clinical indication); or iterative reconstruction. COMPARISON: CT Head without contrast 06/14/2020 1:39 PM FINDINGS: Brain: Decreased attenuation of the supratentorial white matter is likely secondary to chronic microvascular ischemia. No acute intracranial hemorrhage. Cerebral ventricles: Ventricular and subarachnoid spaces are age appropriate. Paranasal sinuses: Visualized sinuses are unremarkable. No fluid levels. Mastoid air cells: Visualized mastoid air cells are well aerated. Vasculature: Intracranial vascular calcification. Bones/joints: Unremarkable. No acute fracture. Soft tissues: Unremarkable. IMPRESSION: No acute intracranial abnormality. Electronically signed by: Aj Segal On 08/13/2020 01:27:51 AM
--- NOTE | 2020-08-13 01:29 | REPVR ---
PROCEDURE INFORMATION: Exam: XR Chest Exam date and time: 08/13/2020 1:11 AM Age: 74 years old Clinical indication: Other: Altered mental status TECHNIQUE: Imaging protocol: XR of the chest. Views: 1 view. COMPARISON: IA Chest, 1 view 06/14/2020 1:28 PM FINDINGS: Lungs: No consolidation. Pleural spaces: Pleural thickening at the lateral right mid upper lung appears similar from prior examination. No visible pneumothorax. Heart/Mediastinum: Stable cardiac silhouette. Vasculature: Elongation of the thoracic aorta with calcification. Bones/joints: Osteopenia. IMPRESSION: Stable exam without acute process. Electronically signed by: Aj Segal On 08/13/2020 01:29:08 AM
[2020-08-13 01:34] LABS: ACETAMINOPHEN LEVEL 3.6 UG/ML (10.0-30.0); ALBUMIN 2.9 GM/DL (3.2-5.2); ALT/SGPT 31 U/L (12-78); BILIRUBIN,DIRECT 0.1 MG/DL (0.0-0.2); BILIRUBIN,TOTAL 0.3 MG/DL (0.2-1.0); BLOOD UREA NITROGEN 21 MG/DL (7-18); CALCIUM LEVEL 7.9 MG/DL (8.8-10.2); CARBON DIOXIDE LEVEL 28 MEQ/L (21-32); CHLORIDE LEVEL 100 MEQ/L (98-107); CK-MB VALUE MASS 5.1 NG/ML (<3.6); CPK CREATINE PHOSPHOKINASE 71 U/L (26-192); CREATININE FOR GFR 0.77 MG/DL (0.55-1.30); ETHYL ALCOHOL (ETHANOL) < 0.003 % (0.000-0.010); GLOMERULAR FILTRATION RATE > 60.0 (>39); GLUCOSE, FASTING 110 MG/DL (70-100); MB/CK RELATIVE INDEX 7.18 (< OR =4); POTASSIUM SERUM 3.4 MEQ/L (3.5-5.1); SALICYLATE LEVEL 3.2 MG/DL (5.0-30.0); SODIUM LEVEL 134 MEQ/L (136-145); TOTAL PROTEIN 5.5 GM/DL (6.4-8.2); TROPONIN I 0.06 NG/ML (< 0.10)
[2020-08-13] MEDS ORDERED: POTASSIUM CHLORIDE 10 MEQ SR TABLET PO ONE (02:00)
[2020-08-13 02:09] LABS: RSV AMPLIFICATION NEGATIVE (NEGATIVE)
[2020-08-13] MEDS ORDERED: PRED10TA2 PO (03:07)
[2020-08-13] MEDS ORDERED: HYDR-3719 PO (03:07)
[2020-08-13] MEDS ORDERED: GABA-1171 PO (03:09)
[2020-08-13] MEDS ORDERED: med rec comment (03:10)
[2020-08-13] MEDS ORDERED: ALBUTEROL SULFATE 2.5 MG/0.5 ML INH NEB SOLN NEB PRN (05:05)
[2020-08-13] MEDS ORDERED: **hydrALAZINE** 50 MG TAB PO SCH ×3 (05:15→21:00)
[2020-08-13] MEDS ORDERED: GLUCOSE 4GM CHEW TABLET PO PRN (05:20)
[2020-08-13] MEDS ORDERED: GLUCAGON INJ 1MG VIAL SC PRN (05:20)
[2020-08-13] MEDS ORDERED: DEXTROSE 50% 50 ML SYRINGE IV PRN (05:20)
[2020-08-13 05:48] LABS: TROPONIN I 0.07 NG/ML (< 0.10)
--- NOTE | 2020-08-13 06:08 | ECGEPIP ---
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
[2020-08-13 07:01] LABS: ALBUMIN 2.6 GM/DL (3.2-5.2); ALT/SGPT 29 U/L (12-78); BILIRUBIN,TOTAL 0.4 MG/DL (0.2-1.0); BLOOD UREA NITROGEN 18 MG/DL (7-18); CALCIUM LEVEL 7.6 MG/DL (8.8-10.2); CARBON DIOXIDE LEVEL 27 MEQ/L (21-32); CHLORIDE LEVEL 106 MEQ/L (98-107); CREATININE FOR GFR 0.67 MG/DL (0.55-1.30); FREE T4 1.02 NG/DL (0.76-1.46); GLOMERULAR FILTRATION RATE > 60.0 (>39); GLUCOSE, FASTING 103 MG/DL (70-100); SODIUM LEVEL 139 MEQ/L (136-145); TOTAL PROTEIN 5.2 GM/DL (6.4-8.2)
[2020-08-13] MEDS: ACETAMINOPHEN TAB 650MG DOSE (2X325MG) PO PRN ×2 (07:05→21:31)
[2020-08-13 07:13] LABS: BASO # 0.1 10^3/uL (0.0-0.2); BASO % 0.3 % (0.0-1.0); EOS # 0.1 10^3/uL (0.0-0.5); EOS % 0.4 % (0.0-3.0); HEMATOCRIT 38.8 % (36.0-47.0); HEMOGLOBIN 13.4 g/dl (12.0-15.5); LYMPH # 1.2 10^3/uL (1.5-5.0); LYMPH % 6.7 % (24.0-44.0); MEAN CORPUSCULAR HEMOGLOBIN 30.9 pg (27.0-33.0); MEAN CORPUSCULAR HGB CONC 34.5 g/dl (32.0-36.5); MEAN CORPUSCULAR VOLUME 89.6 fl (80.0-96.0); MONO # 1.3 10^3/uL (0.0-0.8); MONO % 6.9 % (2.0-8.0); NEUTROPHILS # 15.7 10^3/uL (1.5-8.5); NEUTROPHILS % 85.3 % (36.0-66.0); PLATELET COUNT, AUTOMATED 193 10^3/uL (150-450); RED BLOOD COUNT 4.33 10^6/uL (4.00-5.40); WHITE BLOOD COUNT 18.4 10^3/uL (4.0-10.0)
[2020-08-13 07:37] LABS: HEMOGLOBIN A1c 8.8 %
[2020-08-13] MEDS: IPRATROPIUM 0.5MG/ALBUTEROL 2.5MG INH SOL UD 3ML (DUONEB) NEB SCH ×2 (08:15→11:53)
[2020-08-13] MEDS: CLOPIDOGREL 75 MG TAB PO SCH (08:15)
[2020-08-13] MEDS: LEVOTHYROXINE 75MCG TABLET (0.075MG) PO SCH (08:16)
[2020-08-13] MEDS: GABAPENTIN 100 MG CAP PO SCH (08:16)
[2020-08-13] MEDS: DULoxetine 30 MG CAP (CYMBALTA) PO SCH (08:16)
[2020-08-13] MEDS: hydrOXYzine 10 MG TAB PO PRN (08:27)
[2020-08-13] MEDS ORDERED: predniSONE 10 MG TAB PO SCH (09:00)
[2020-08-13] MEDS ORDERED: lisinopriL 40 MG TAB PO SCH (09:00)
[2020-08-13] MEDS ORDERED: metFORMIN (GLUCOPHAGE) 500MG TAB PO SCH (09:00)
--- NOTE | 2020-08-13 12:04 | ECGEPIP ---
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 Possible Old Inferior infarct ST-T abnormalities likely secondary to LEFT VENTRICULAR HYPERTROPHY. No significant change compared with 08/13/2020 At 107 hours. Electronically Signed on 08-13-2020 12:03:54 EDT by Clinton Irvin
[2020-08-13] MEDS ORDERED: IPRATROPIUM 0.5MG/ALBUTEROL 2.5MG INH SOL UD 3ML (DUONEB) NEB PRN (13:00)
--- NOTE | 2020-08-13 13:37 | IPNPDOC ---
Subjective Date Seen The patient was seen on 08/13/20. Subjective Chief Complaint/HPI Complains of SOB. Says she is always SOB. She does not remember anything from yesterday. Objective Physical Examination General Exam: Positive: Alert, Cooperative, No Acute Distress Eye Exam: Positive: PERRLA, Conjunctiva & lids normal, EOMI; Negative: Sclera icteric ENT Exam: Positive: Atraumatic, Mucous membr. moist/pink, Pharynx Normal Neck Exam: Positive: Supple; Negative: JVD, thyromegaly Chest Exam: Positive: Rhonchi, Wheezing, Diminished, Other (crackles at both bases) Heart Exam: Positive: Rate Normal, Regular Rhythm, Normal S1, Normal S2; Negative: Murmurs, Rubs Abdomen Exam: Positive: Normal bowel sounds, Soft; Negative: Tenderness Extremity Exam: Negative: Clubbing, Cyanosis, Edema Assessment /Plan Assessment 74 year old female with PMHx of COPD with chronic respiratory failure supposed to be on 2L, Steroid dependent, Emphysema, smoker, HTN, IDDM2, Diastolic CHF, H/o RUL Mass s/p transbronchial Bx benign, Hypothyroidism, Spinal stenosis with Chronic back pain, Right renal artery stenosis with Atrophic R kidney, Hx of Infarct, CKD3, Hx of Bladder CA s/p TURBT in 2016, Anemia, PVD s/p RLE Angioplasty / Stenting, Anxiety / Depression , recurrent falls, was brought to the ED as she was found down on the floor unconscious. Found by neighbor. EMS found her to have a Blood sugar of 39. She continued to be hypoglycemic in the ED and was also noted to have hypertensive urgency inth range of 210/110 . She was admitted for acute encephalopathy from hypoglycemia and hypertensive urgency. Hypoglycemia resolving will continue FS q 4 hours. If sugars rise above 300 will start on antidiabetic medications. COPD with chronic hypoxic respiratory failure/ 2l to 3L at home poorly controlled. Uses only albuterol nebs about 2 times / day at home. She also has been using 4L of oxygen at home as her SOB has not been well controlled. I suspect she may not be able to afford the copay of the inhalors. WIll ask PFS to look into it. will start her on symbicort and spiriva. Continue albuterol q4 hours. continue prednisone 10 mg. Not following with Dr Erickson any more. Hypertensive urgency resolved continue home meds of lisinopril 40, amlodipine 10 and hydralazine 50 bid. Acute urinary retention straight cath produced 700 cc will continue bladder scan prn. will avoid ipratropium as this can worsen urinary retention Chronic Leucocytosis likely due to chronic steroids. H/o Bladder tumor s/p TURBT in 2015 i am unsure if she is following with any body at present. Severe lumber spinal stenosis/ sacral insufficiency fractures 07/14/20 continue home pain meds Recurrent falls PT/OT Protein calorie malnutrition BMI of 19.4, albumin 2.6, bitemporal atrophy, atrophy of small muscles of hand and feet, intercostal muscle atrophy likely due to advanced COPD. Hypothyroid Synthroid PAD s/p stents plavix. Plan/VTE VTE Prophylaxis Ordered?: Yes VS, I&O, 24H, Fishbone Vital Signs/I&O Vital Signs Date Time Temp Pulse Resp B/P (MAP) Pulse Ox O2 Delivery O2 Flow Rate FiO2 08/13/20 10:00 98.0 80 20 128/60 (82) 96 Nasal Cannula 2.0 I&O- Last 24 Hours up to 6 AM 08/13/20 07:00 Intake Total 0 ml Output Total 350 ml Balance -350 ml Laboratory Data 24H LABS Laboratory Tests 2 08/12/20 23:00: Bedside Glucose (Misc Panel) 80L 08/13/20 00:23: Bedside Glucose (Misc Panel) 35*L 08/13/20 00:35: Immature Granulocyte % (Auto) 0.8, Neutrophils (%) (Auto) 86.7H, Lymphocytes (%) (Auto) 5.5L, Monocytes (%) (Auto) 6.7, Eosinophils (%) (Auto) 0.1, Basophils (%) (Auto) 0.2, Neutrophils # (Auto) 9.7H, Lymphocytes # (Auto) 0.6L, Monocytes # (Auto) 0.8, Eosinophils # (Auto) 0.0, Basophils # (Auto) 0.0, Nucleated Red Blood Cells % (auto) 0.0, Anion Gap 6L, Glomerular Filtration Rate > 60.0, Calcium Level 7.9L, Total Bilirubin 0.3, Direct Bilirubin 0.1, Aspartate Amino Transf (AST/SGOT) 45H, Alanine Aminotransferase (ALT/SGPT) 31, Alkaline Phosphatase 120H, Ammonia 15, Total Creatine Kinase 71, Creatine Kinase MB 5.1H, Creatine Kinase MB Relative Index 7.18H, Troponin I 0.06, Total Protein 5.5L, Albumin 2.9L, Albumin/Globulin Ratio 1.1L, Thyroid Stimulating Hormone (TSH) 1.390, Salicylates Level 3.2L, Acetaminophen Level 3.6L, Ethyl Alcohol Level < 0.003 08/13/20 01:19: Coronavirus (COVID-19)(PCR) NEGATIVE, Influenza Type A (RT-PCR) NEGATIVE, Influenza Type B (RT-PCR) NEGATIVE, Respiratory Syncytial Virus (PCR) NEGATIVE 08/13/20 01:26: Bedside Glucose (Misc Panel) 59L 08/13/20 02:18: Urine Color YELLOW, Urine Appearance CLEAR, Urine pH 6.0, Urine Specific Coleman 1.013, Urine Protein 3+H, Urine Glucose (UA) 2+H, Urine Ketones NEGATIVE, Urine Blood NEGATIVE, Urine Nitrite NEGATIVE, Urine Bilirubin NEGATIVE, Urine Urobilinogen 0.2, Urine Leukocyte Esterase NEGATIVE, Urine WBC (Auto) 1, Urine RBC (Auto) 1, Urine Hyaline Casts (Auto) 0, Urine Bacteria (Auto) NEGATIVE, Urine Squamous Epithelial Cells 0, Urine Sperm (Auto) 08/13/20 03:01: Bedside Glucose (Misc Panel) 178H 08/13/20 05:00: Anion Gap 6L, Glomerular Filtration Rate > 60.0, Calcium Level 7.6L, Total Bilirubin 0.4, Aspartate Amino Transf (AST/SGOT) 42H, Alanine Aminotransferase (ALT/SGPT) 29, Alkaline Phosphatase 112, Troponin I 0.07, Total Protein 5.2L, Albumin 2.6L, Albumin/Globulin Ratio 1.0L, Thyroid Stimulating Hormone (TSH) 1.710, Free Thyroxine 1.02 08/13/20 05:20: Bedside Glucose (Misc Panel) 111H 08/13/20 06:54: Immature Granulocyte % (Auto) 0.4, Neutrophils (%) (Auto) 85.3H, Lymphocytes (%) (Auto) 6.7L, Monocytes (%) (Auto) 6.9, Eosinophils (%) (Auto) 0.4, Basophils (%) (Auto) 0.3, Neutrophils # (Auto) 15.7H, Lymphocytes # (Auto) 1.2L, Monocytes # (Auto) 1.3H, Eosinophils # (Auto) 0.1, Basophils # (Auto) 0.1, Nucleated Red Blood Cells % (auto) 0.0, Estimated Mean Plasma Glucose 206H, Hemoglobin A1c 8.8 08/13/20 11:48: Troponin I 0.07 CBC/BMP Laboratory Tests 08/13/20 00:35 08/13/20 05:00 08/13/20 06:54 MANPREET SIMMS MD Aug 13, 2020 13:37
[2020-08-13] MEDS ORDERED: ANEXSIA, NORCO 7.5MG/325MG TABLET(HYDROCODONE/APAP) PO PRN (16:10)
[2020-08-13] MEDS: ALBUTEROL SULFATE 2.5 MG/0.5 ML INH NEB SOLN NEB SCH ×2 (16:25→19:44)
[2020-08-13] MEDS ORDERED: NS 500 ML IV ONE (18:25)
[2020-08-13] MEDS: HumaLOG INSULIN (NovoLOG) PER UNIT SC SCH (18:30)
[2020-08-13] MEDS: SYMBICORT 160/4.5MCG INHALER 6GM INH SCH (19:44)
[2020-08-13] MEDS ORDERED: ATORVASTATIN 20 MG TAB PO SCH (21:00)
[2020-08-13] MEDS ORDERED: HumaLOG INSULIN (NovoLOG) PER UNIT SC SCH (21:00)
[2020-08-13] MEDS: predniSONE 10 MG TAB PO SCH (21:32)
[2020-08-13] MEDS: LEVEMIR (INSULIN DETEMIR) 1 UNITS/0.01ML SC SCH (21:33)
[2020-08-14] MEDS: ALBUTEROL SULFATE 2.5 MG/0.5 ML INH NEB SOLN NEB SCH ×4 (00:17→12:00)
[2020-08-14 00:36] VITALS: BP 132/52
[2020-08-14 04:27] VITALS: BP 125/60
[2020-08-14 05:06] LABS: BASO % 0.2 % (0.0-1.0); HEMATOCRIT 30.6 % (36.0-47.0); HEMOGLOBIN 10.3 g/dl (12.0-15.5); LYMPH # 0.5 10^3/uL (1.5-5.0); LYMPH % 4.2 % (24.0-44.0); MEAN CORPUSCULAR HEMOGLOBIN 31.3 pg (27.0-33.0); MEAN CORPUSCULAR HGB CONC 33.7 g/dl (32.0-36.5); MONO # 0.4 10^3/uL (0.0-0.8); MONO % 2.9 % (2.0-8.0); NEUTROPHILS # 11.8 10^3/uL (1.5-8.5); NEUTROPHILS % 92.2 % (36.0-66.0); PLATELET COUNT, AUTOMATED 157 10^3/uL (150-450); RED BLOOD COUNT 3.29 10^6/uL (4.00-5.40); WHITE BLOOD COUNT 12.8 10^3/uL (4.0-10.0)
[2020-08-14 05:42] LABS: ALBUMIN 2.5 GM/DL (3.2-5.2); BILIRUBIN,TOTAL 0.3 MG/DL (0.2-1.0); CREATININE FOR GFR 1.17 MG/DL (0.55-1.30); GLOMERULAR FILTRATION RATE 48.1 (>39); MAGNESIUM LEVEL 2.1 MG/DL (1.8-2.4); POTASSIUM SERUM 4.3 MEQ/L (3.5-5.1); TOTAL PROTEIN 4.8 GM/DL (6.4-8.2)
[2020-08-14] MEDS ORDERED: HumaLOG INSULIN (NovoLOG) PER UNIT SC SCH (07:30)
[2020-08-14] MEDS: SYMBICORT 160/4.5MCG INHALER 6GM INH SCH (07:39)
[2020-08-14 08:00] VITALS: BP 129/60
[2020-08-14] MEDS ORDERED: TIOTROPIUM INHALER/CAPSULE (SPIRIVA) INH SCH (08:00)
[2020-08-14] MEDS ORDERED: amLODIPine 5 MG TAB PO SCH (09:00)
[2020-08-14] MEDS: HumaLOG INSULIN (NovoLOG) PER UNIT SC SCH ×2 (09:03→11:35)
[2020-08-14] MEDS: LEVEMIR (INSULIN DETEMIR) 1 UNITS/0.01ML SC SCH (09:03)
[2020-08-14 09:04] VITALS: BP 129/60
[2020-08-14] MEDS: LEVOTHYROXINE 75MCG TABLET (0.075MG) PO SCH (09:04)
[2020-08-14] MEDS: DULoxetine 30 MG CAP (CYMBALTA) PO SCH (09:04)
[2020-08-14] MEDS: predniSONE 10 MG TAB PO SCH (09:04)
[2020-08-14] MEDS: GABAPENTIN 100 MG CAP PO SCH (09:04)
[2020-08-14] MEDS: CLOPIDOGREL 75 MG TAB PO SCH (09:04)
[2020-08-14] MEDS ORDERED: NICOTINE 14 MG/24 HR TRANSDERMAL TD PRN (09:55)
[2020-08-14] MEDS ORDERED: BREO1INH3 PO (10:34)
[2020-08-14] MEDS ORDERED: LISI20TA33 PO (10:38)
--- NOTE | 2020-08-14 10:47 | IPNPDOC ---
Subjective Date Seen The patient was seen on 08/14/20. Subjective Chief Complaint/HPI Feels better this morning. SOB is improved. No more hypoglycemic episodes yesterday . Objective Physical Examination General Exam: Positive: Alert, Cooperative, No Acute Distress Eye Exam: Positive: PERRLA, Conjunctiva & lids normal, EOMI; Negative: Sclera icteric ENT Exam: Positive: Atraumatic, Mucous membr. moist/pink, Pharynx Normal Neck Exam: Positive: Supple; Negative: JVD, thyromegaly Chest Exam: Positive: Rhonchi, Wheezing, Diminished, Other (crackles at both bases) Heart Exam: Positive: Rate Normal, Regular Rhythm, Normal S1, Normal S2; Negative: Murmurs, Rubs Abdomen Exam: Positive: Normal bowel sounds, Soft; Negative: Tenderness Extremity Exam: Negative: Clubbing, Cyanosis, Edema Assessment /Plan Assessment 74 year old female with PMHx of COPD with chronic respiratory failure supposed to be on 2L, Steroid dependent, Emphysema, smoker, HTN, IDDM2, Diastolic CHF, H/o RUL Mass s/p transbronchial Bx benign, Hypothyroidism, Spinal stenosis with Chronic back pain, Right renal artery stenosis with Atrophic R kidney, Hx of Infarct, CKD3, Hx of Bladder CA s/p TURBT in 2016, Anemia, PVD s/p RLE Angioplasty / Stenting, Anxiety / Depression , recurrent falls, was brought to the ED as she was found down on the floor unconscious. Found by neighbor. EMS found her to have a Blood sugar of 39. She continued to be hypoglycemic in the ED and was also noted to have hypertensive urgency inth range of 210/110 . She was admitted for acute encephalopathy from hypoglycemia and hypertensive u rgency. Hypoglycemia resolved. Started on levemir and lispro. COPD with chronic hypoxic respiratory failure/ supposed to be on 2l at home poorly controlled. Uses only albuterol nebs about 2 times / day at home. She also has been using 4L of oxygen at home as her SOB has not been well controlled. I suspect she may not be able to afford the copay of the inhalors. Will give Anoro ellipta continue prednisone 5 mg bid continue albuterol nebs prn. Hypertensive urgency resolved BP very well controlled with home meds. I think she may be missing doses at home so her BP was so elevated on arrival. In hospital she was very well controlled only with lisinopril 20 and amlodipine 10 mg. I do not think she needs all the antihypertensive meds. Will change lisinopril to 20 mg bid , stop hydralazine, continue amlodipine 10 mg. Acute urinary retention straight cath produced 700 cc will continue bladder scan prn. will avoid ipratropium as this can worsen urinary retention Chronic Leucocytosis likely due to chronic steroids. H/o Bladder tumor s/p TURBT in 2016 i am unsure if she is following with any body at present. Severe lumber spinal stenosis/ sacral insufficiency fractures 07/14/20 continue home pain meds Recurrent falls PT/OT Protein calorie malnutrition BMI of 19.4, albumin 2.6, bitemporal atrophy, atrophy of small muscles of hand and feet, intercostal muscle atrophy likely due to advanced COPD. Hypothyroid Synthroid PAD s/p stents plavix. Dispo: Likely Home with services Plan/VTE VTE Prophylaxis Ordered?: Yes VS, I&O, 24H, Fishbone Vital Signs/I&O Vital Signs Date Time Temp Pulse Resp B/P (MAP) Pulse Ox O2 Delivery O2 Flow Rate FiO2 08/14/20 04:27 2.0 08/14/20 04:27 97.9 81 20 125/60 (81) 96 Nasal Cannula I&O- Last 24 Hours up to 6 AM 08/14/20 05:59 Intake Total 2080 ml Output Total 1450 ml Balance 630 ml Laboratory Data 24H LABS Laboratory Tests 2 08/13/20 11:48: Troponin I 0.07 08/13/20 17:31: Bedside Glucose Confirm (Misc) 681*H 08/14/20 04:19: Immature Granulocyte % (Auto) 0.5, Neutrophils (%) (Auto) 92.2H, Lymphocytes (%) (Auto) 4.2L, Monocytes (%) (Auto) 2.9, Eosinophils (%) (Auto) 0.0, Basophils (%) (Auto) 0.2, Neutrophils # (Auto) 11.8H, Lymphocytes # (Auto) 0.5L, Monocytes # (Auto) 0.4, Eosinophils # (Auto) 0.0, Basophils # (Auto) 0.0, Nucleated Red Blood Cells % (auto) 0.0, Anion Gap 5L, Glomerular Filtration Rate 48.1, Calcium Level 8.0L, Magnesium Level 2.1, Total Bilirubin 0.3, Aspartate Amino Transf (AST/SGOT) 26, Alanine Aminotransferase (ALT/SGPT) 30, Alkaline Phosphatase 115, Total Protein 4.8L, Albumin 2.5L, Albumin/Globulin Ratio 1.1L CBC/BMP Laboratory Tests 08/14/20 04:19 MANPREET SIMMS MD Aug 14, 2020 07:37
[2020-08-14] MEDS: hydrOXYzine 10 MG TAB PO PRN (13:31)
[2020-08-14] MEDS ORDERED: predniSONE 5 MG TAB PO SCH (21:00)
== END 2020-08-14 13:41 | disposition home health service (06) ==
LOC: M ED 22:44 → M ED INP 22:45 → ENRESERVDT 08-13 05:15 → ENRESERVTM 08-13 05:15 → M PCU 08-13 06:32
PROVIDERS: ADMIT Internal Medicine Nephrology; ATTEND Internal Medicine Nephrology
DX: E16.2 Hypoglycemia, unspecified (principal); I16.0 Hypertensive urgency; J44.9 Chronic obstructive pulmonary disease, unspecified; J96.11 Chronic respiratory failure with hypoxia; R33.9 Retention of urine, unspecified; D72.829 Elevated white blood cell count, unspecified; R41.82 Altered mental status, unspecified; I50.9 Heart failure, unspecified; N18.30 Chronic kidney disease, stage 3 unspecified; D64.9 Anemia, unspecified; Z85.51 Personal history of malignant neoplasm of bladder; M48.07 Spinal stenosis, lumbosacral region; Z91.81 History of falling; E03.9 Hypothyroidism, unspecified; I73.9 Peripheral vascular disease, unspecified; E46 Unspecified protein-calorie malnutrition; Z79.899 Other long term (current) drug therapy; Z79.02 Long term (current) use of antithrombotics/antiplatelets; Z79.891 Long term (current) use of opiate analgesic; Z79.52 Long term (current) use of systemic steroids; Z79.4 Long term (current) use of insulin; Z88.2 Allergy status to sulfonamides; Z88.1 Allergy status to other antibiotic agents; Z88.5 Allergy status to narcotic agent; Z91.02 Food additives allergy status

== ENCOUNTER 2020-08-16 11:07 | Emergency (ER) | payer MEDICARE ==
[~2020-08-16] VITALS: Ht 157.5 cm; Wt 45.5 kg
[~2020-08-16 11:07] MED LIST changes: +BREO1INH3 PO; +HYDR-3719 PO; +med rec comment
[2020-08-16] MEDS ORDERED: LABETALOL 100MG/20ML VIAL IV STA (13:17)
[2020-08-16] MEDS ORDERED: MORPHINE 4 MG/ML 1ML VIAL/SYRINGE (J2270) IV ONE (13:20)
[2020-08-16 13:45] LABS: HEMATOCRIT 37.7 % (36.0-47.0); HEMOGLOBIN 12.3 g/dl (12.0-15.5); MEAN CORPUSCULAR HEMOGLOBIN 30.3 pg (27.0-33.0); MEAN CORPUSCULAR HGB CONC 32.6 g/dl (32.0-36.5); MEAN CORPUSCULAR VOLUME 92.9 fl (80.0-96.0); PLATELET COUNT, AUTOMATED 195 10^3/uL (150-450); RED BLOOD COUNT 4.06 10^6/uL (4.00-5.40); WHITE BLOOD COUNT 17.9 10^3/uL (4.0-10.0)
[2020-08-16 13:50] VITALS: BP 235/113
--- NOTE | 2020-08-16 14:02 | REP ---
INDICATION: fall. COMPARISON: Frontal view of the chest of 08/13/2020 and additional multiple priors. TECHNIQUE: Four views of the ribs with frontal view of the chest FINDINGS: There is a fracture of the right 8th rib. The frontal view the chest again shows chronic fibrotic changes particularly in the right upper lobe and appearing stable from as far back as 07/01/2019 no new abnormal opacities have developed. IMPRESSION: Right 8th rib fracture and chronic lung changes. <Electronically signed by Dereck Biggs > 08/16/20 [id number]
[2020-08-16 15:03] LABS: BLOOD UREA NITROGEN 22 MG/DL (7-18); CALCIUM LEVEL 8.2 MG/DL (8.8-10.2); CARBON DIOXIDE LEVEL 28 MEQ/L (21-32); CHLORIDE LEVEL 109 MEQ/L (98-107); CK-MB VALUE MASS 2.3 NG/ML (<3.6); CPK CREATINE PHOSPHOKINASE 57 U/L (26-192); CREATININE FOR GFR 0.74 MG/DL (0.55-1.30); GLOMERULAR FILTRATION RATE > 60.0 (>39); GLUCOSE, FASTING 57 MG/DL (70-100); MB/CK RELATIVE INDEX 4.04 (< OR =4); NT-PRO BNP 8761 PG/ML (<125); SODIUM LEVEL 140 MEQ/L (136-145); TROPONIN I 0.05 NG/ML (< 0.10)
[2020-08-16] MEDS ORDERED: HYDR-3715 PO (15:15)
[2020-08-16] MEDS ORDERED: LASI20TA3 PO (15:15)
[2020-08-16 15:39] VITALS: BP 166/77
--- NOTE | 2020-08-16 20:15 | ECGEPIP ---
[facility] - ED Test Date: 2020-08-16 Pat Name: ELA LIVINGSTON Department: Room: - Gender: Female [employer]: : 1945 Requested By: SHANIA CURRAN Order Number: [id number] Reading MD: Tika Ortega Measurements Intervals Twain Rate: 67 P: 70 SD: 128 QRS: 8 QRSD: 98 T: 115 QT: 434 QTc: 458 Interpretive Statements Normal sinus rhythm Left ventricular hypertrophy with repolarization abnormality ( Armando product ) possible old anteroseptal infarct NSTTW abnormalities decreased rate 08/13/20 Electronically Signed on 08-16-2020 20:14:56 EDT by Tika Ortega
[2020-08-17] MEDS ORDERED: HYDR-3911 PO (12:15)
[2020-08-17] MEDS ORDERED: BREO1INH3 INH (16:31)
[2020-08-17] MEDS ORDERED: LISI40TA4 PO (16:31)
[2020-08-17] MEDS ORDERED: ANOR1AER INH (16:31)
[2020-08-17] MEDS ORDERED: FURO20TA2 PO (16:31)
[2020-08-17] MEDS ORDERED: HYDR-4571 PO (16:31)
[2020-08-17] MEDS ORDERED: PROAAER10 INH (16:31)
== END 2020-08-16 16:05 | disposition home or self-care (01) ==
LOC: M ED 11:07 → EDBD 11:07 → M ED 16:05
DX: S22.31XA Fracture of one rib, right side, initial encounter for closed fracture (principal); W01.10XA Fall on same level from slipping, tripping and stumbling with subsequent striking against unspecified object, initial encounter; Y92.009 Unspecified place in unspecified non-institutional (private) residence as the place of occurrence of the external cause; Y93.9 Activity, unspecified; Y99.9 Unspecified external cause status; I50.9 Heart failure, unspecified; E11.9 Type 2 diabetes mellitus without complications; I10 Essential (primary) hypertension; J44.9 Chronic obstructive pulmonary disease, unspecified; F17.200 Nicotine dependence, unspecified, uncomplicated; Z79.4 Long term (current) use of insulin; Z79.899 Other long term (current) drug therapy; Z88.2 Allergy status to sulfonamides; Z88.1 Allergy status to other antibiotic agents; Z88.5 Allergy status to narcotic agent; Z88.8 Allergy status to other drugs, medicaments and biological substances; Z91.02 Food additives allergy status

== ENCOUNTER 2020-08-17 11:58 | Inpatient (IN) | payer MEDICARE ==
[~2020-08-17] VITALS: Ht 157.5 cm; Wt 57.6 kg
[~2020-08-17 11:58] MED LIST changes: +LASI20TA3 PO
[2020-08-17] MEDS ORDERED: HYDR-3911 PO (12:15)
--- NOTE | 2020-08-17 12:26 | REP ---
INDICATION: Altered Mental Status COMPARISON: 08/14/2019 TECHNIQUE: Axial noncontrast images from the skull base to the thoracic inlet with coronal reformations. This CT examination was performed using the following dose reduction techniques: Automated exposure control, adjustment of mA and/or kv according to the patient's size, and use of iterative reconstruction technique. FINDINGS: Atrophy with periventricular leukomalacia and microvascular ischemic changes are appreciated. The ventricles and sulci are symmetric. Barrios-white differentiation is maintained. There is no evidence for acute intracranial hemorrhage, mass/mass effect, pathology or infarction. No extra-axial fluid collection. Calvarium is intact. Paranasal sinuses and mastoid air cells are clear. IMPRESSION: Atrophy and microvascular ischemic changes. No acute intracranial hemorrhage, infarction, or mass/mass effect. <Electronically signed by Danis Greenfield > 08/17/20 [id number]
[2020-08-17 14:11] LABS: OSMOLALITY SERUM 301 MOSM/KG (280-301)
[2020-08-17 14:21] LABS: ALBUMIN 2.5 GM/DL (3.2-5.2); ALT/SGPT 30 U/L (12-78); BILIRUBIN,DIRECT 0.1 MG/DL (0.0-0.2); BILIRUBIN,TOTAL 0.4 MG/DL (0.2-1.0); BLOOD UREA NITROGEN 26 MG/DL (7-18); CALCIUM LEVEL 8.2 MG/DL (8.8-10.2); CARBON DIOXIDE LEVEL 24 MEQ/L (21-32); CHLORIDE LEVEL 104 MEQ/L (98-107); CK-MB VALUE MASS 2.7 NG/ML (<3.6); CPK CREATINE PHOSPHOKINASE 58 U/L (26-192); CREATININE FOR GFR 0.94 MG/DL (0.55-1.30); GLOMERULAR FILTRATION RATE > 60.0 (>39); GLUCOSE, FASTING 323 MG/DL (70-100); MB/CK RELATIVE INDEX 4.66 (< OR =4); POTASSIUM SERUM 5.3 MEQ/L (3.5-5.1); SODIUM LEVEL 136 MEQ/L (136-145); TOTAL PROTEIN 5.4 GM/DL (6.4-8.2); TROPONIN I 0.04 NG/ML (< 0.10)
[2020-08-17] MEDS ORDERED: ACETAMINOPHEN 500 MG TAB PO ONE (14:25)
[2020-08-17 14:35] LABS: BASO # 0.1 10^3/uL (0.0-0.2); BASO % 0.4 % (0.0-1.0); EOS # 0.1 10^3/uL (0.0-0.5); EOS % 0.7 % (0.0-3.0); HEMATOCRIT 38.2 % (36.0-47.0); HEMOGLOBIN 12.6 g/dl (12.0-15.5); LYMPH # 0.6 10^3/uL (1.5-5.0); LYMPH % 3.5 % (24.0-44.0); MEAN CORPUSCULAR HEMOGLOBIN 31.1 pg (27.0-33.0); MEAN CORPUSCULAR VOLUME 94.3 fl (80.0-96.0); MONO # 0.5 10^3/uL (0.0-0.8); NEUTROPHILS # 16.3 10^3/uL (1.5-8.5); NEUTROPHILS % 91.8 % (36.0-66.0); PLATELET COUNT, AUTOMATED 206 10^3/uL (150-450); RED BLOOD COUNT 4.05 10^6/uL (4.00-5.40); WHITE BLOOD COUNT 17.8 10^3/uL (4.0-10.0)
[2020-08-17] MEDS ORDERED: MORPHINE 2 MG/ML 1ML VIAL (J2270) IV ONE (14:50)
--- NOTE | 2020-08-17 14:58 | REP ---
INDICATION: CP COMPARISON: 08/14/2019 TECHNIQUE: Portable AP view of the chest FINDINGS: The mediastinum and cardiac silhouette are stable and within normal limits. The left hemithorax is clear. The right hemithorax again demonstrates a minimally displaced lateral 8th rib fracture with continued pleuroparenchymal changes in the periphery of the right upper lung zone. The current examination demonstrates thin curvilinear lines of gas overlying the right apex and midline thoracic inlet. This is nonspecific and while this may represent sheet artifact, small amount of subcutaneous emphysema related to recent trauma cannot be excluded. IMPRESSION: Questionable subcutaneous emphysema overlying the right apex and thoracic inlet versus artifact. Correlation is required. If the patient remains symptomatic consider chest CT for further investigation. <Electronically signed by Danis Greenfield > 08/17/20 [id number]
[2020-08-17] MEDS ORDERED: LISI40TA4 PO (16:31)
[2020-08-17] MEDS ORDERED: ANOR1AER INH (16:31)
[2020-08-17] MEDS ORDERED: PROAAER10 INH (16:31)
[2020-08-17] MEDS ORDERED: BREO1INH3 INH (16:31)
[2020-08-17] MEDS ORDERED: FURO20TA2 PO (16:31)
[2020-08-17] MEDS ORDERED: HYDR-4571 PO (16:31)
--- NOTE | 2020-08-17 16:31 | REP ---
INDICATION: trauma COMPARISON: 02/19/2020 TECHNIQUE: Axial noncontrast images from the thoracic inlet to the upper abdomen with coronal and sagittal reformations. This CT examination was performed using the following dose reduction techniques: Automated exposure control, adjustment of mA and/or kv according to the patient's size, and use of iterative reconstruction technique. FINDINGS: The lung ferrell demonstrate advanced emphysematous changes along with relatively stable pleuroparenchymal scarring and small elements of parenchymal opacity and nodular densities along the periphery of the right upper lung zone. Few scattered areas of small ill-defined density with marginal scarring are also identified bilaterally. There is a new linear area of atelectasis along the periphery of the posterior right lower lobe as well as small new cluster of 3-4 mm nodular densities in the apical right lower lobe (series 201 images 33-37). Acute lateral right 8th rib fracture. No effusion. No pneumothorax. The suspicious subtle linear foci of gas on x-ray are not identified and likely represented sheet artifact. The mediastinum demonstrates stable extensive atherosclerotic disease to the thoracic aorta and coronary arteries as well as the vasculature to the visualized upper abdomen. IMPRESSION: 1. Acute lateral right 8th rib fracture. No associated pulmonary parenchymal contusion, effusion, or pneumothorax. The suspicious thin linear foci of gas on x-ray likely represented sheet artifact rather than mediastinal/soft tissue injury. 2. Chronic COPD/emphysematous changes with scattered scarring and pleuroparenchymal changes similar to prior examination. However subtle new areas of small focal nodularity in the right lower lobe and linear atelectasis in the basilar right lower lobe are identified and may warrant short-term follow-up to resolution. <Electronically signed by Danis Greenfield > 08/17/20 [id number]
[2020-08-17] MEDS ORDERED: cefTRIAXone SOD 1 GM in D5W MINI-BAG PLUS 50 ML IV ONE (17:00)
[2020-08-17] MEDS ORDERED: ACETAMINOPHEN TAB 650MG DOSE (2X325MG) PO PRN (17:55)
[2020-08-17] MEDS ORDERED: MOM 30ML SUSPENSION UDC PO PRN (17:55)
[2020-08-17] MEDS ORDERED: GLUCOSE 4GM CHEW TABLET PO PRN (17:55)
[2020-08-17] MEDS ORDERED: DEXTROSE 50% 50 ML SYRINGE IV PRN (17:55)
[2020-08-17] MEDS ORDERED: GLUCAGON INJ 1MG VIAL SC PRN (17:55)
[2020-08-17] MEDS ORDERED: MAALOX 30 ML SUSP *UDC PO PRN (17:55)
[2020-08-17] MEDS ORDERED: ALBUTEROL 90 MCG/ACT 8GM HFA INHALER INH PRN (17:55)
[2020-08-17] MEDS: NICOTINE 14 MG/24 HR TRANSDERMAL TD SCH (19:16)
--- NOTE | 2020-08-17 19:23 | HPEPDOC ---
General Date of Admission Aug 17, 2020 at 17:01 Date of Service: Aug 17, 2020 Primary Care Physician: Es Mcclain MD Attending Physician: CHAYO WOODS MD Chief Complaint The patient is a 74-year-old female admitted with a reason for visit of Altered Mental Status, Rib Fx, Uti. History of Present Illness Presenting compliant: Weakness, recent history of fall with rib fracture, burning urine on peeing. History of present illness: 74-year-old female with extensive past medical history who called EMS herself as she could not tolerate the pain and could not take care of herself and EMS brought her to [facility] ED. Patient she was seen in the ED couple of days ago as she had a fall and had a rib fracture but did not want to be staying in the hospital and left AGAINST MEDICAL ADVICE. She reports she is at baseline forgetful and does not remember things well, but she is oriented to time, place and person. She reports having epigastric pain with scales about 5-6/10, pressure-like pain, no radiation, she feels better when she lays down rather than sitting[given that patient recently had a fall and had her tailbone broken she feels more pain while sitting] she denies any association with food, denies having any nausea, vomiting, diarrhea. She also reports having burning sensation while urinating. She could not tell me since how long this has been going on for. Past medical history: Chronic back pain L4 compression - Spinal stenosis - Peripheral vascular disease with s/p right LE angioplasty with stenting - CKD 3 - Bladder cancer follows with Dr. Astudillo in the past - Severe COPD/emphysemalifetime smoker since age 11 and active smoker. - Peripheral vascular disease - Dyslipidemia - Insulin-dependent diabetes mellitus - Hypothyroidism - Hypertension - CHF - Right upper lobe lung mass - Anxiety/depression Social history: Active smoker, smoking since age 11, but patient smokes about 1 pack/day now Family History: Patient could not recall REVIEW OF SYSTEMS: Constitutional: Denies having fever, chills, night sweats, weight loss, headaches. Eyes: Denies any blurry vision or double vision. ENT: Denies any dysphagia, odynophagia, ear discharge. Cardiovascular: Denies any chest pain or palpitations. Respiratory: Patient is short of breath at baseline and has cough at baseline Gastrointestinal (GI): Denies any nausea or vomiting. Reports having pain in the epigastric region Genitourinary: Reports having dysuria and burning sensation on urinating Musculoskeletal: Reports having pain in her back, and has dragging pain down her legs[likely due to her spinal stenosis] Skin: Denies any rashes or ulcers. Hematology/Oncology: Reports having easy bruising. All other review of systems is negative. PHYSICAL EXAMINATION: General: Patient is awake, alert, oriented times three today on examination, but has difficulties with memory at baseline, laying in bed, no apparent distress. Eyes: Conjunctiva clear, pupils equal round and reactive to light and accommodation. ENT: Hearing Bilateral normal. No nasal deviation. Cardiovascular: S1, S2, normal rhythm, hard to appreciate any other sounds because of her wheezes in her lungs Respiratory: Both inspiratory and expiratory wheezes, rhonchi in bilateral lungs. Patient could not sit for the examination Abdomen: Soft, bowel sounds positive, reports having tenderness on palpation in the epigastric region. Extremities: Has clubbing ,No edema. Central nervous system ([employer]): Awake, alert and fully oriented today on examination. But does have baseline dementia. Skin: Bruising in her bilateral arms. Pertinent Diagnostic tests: Chest x-ray done on 12/19/2019: Reported as:Questionable subcutaneous emphysema overlying the right apex and thoracic inlet versus artifact. Correlation is required. If the patient remains symptomatic consider chest CT for further investigation. CT head without contrast done on 08/17/2020: Reported as:Atrophy and microvascular ischemic changes. No acute intracranial hemorrhage, infarction, or mass/mass effect. CT chest without contrast done on 08/17/2020: Reported as:1. Acute lateral right 8th rib fracture. No associated pulmonary parenchymal contusion, effusion, or pneumothorax. The suspicious thin linear foci of gas on x-ray likely represented sheet artifact rather than mediastinal/soft tissue injury. 2. Chronic COPD/emphysematous changes with scattered scarring and pleuroparenchymal changes similar to prior examination. However subtle new areas of small focal nodularity in the right lower lobe and linear atelectasis in the basilar right lower lobe are identified and may warrant short-term follow-up to resolution. LABS: As below Assessment: 74-year-old female patient with extensive past medical history was brought in by EMS to the ED as patient called EMS by herself as she could not take care of h erself because of the weakness and recent rib fracture she had after a fall, and reports to be having burning urine sensation. In the ED patient was further evaluated Showing leukocytosis, and UA showing 1+ bacteria, leukocyte esterase. Patient is being admitted under hospitalist service for pain management, further evaluation and management. Plan: Recent fall and rib fracture: -As per the ED physician patient had a recent fall 2 days ago and presented to the ED along with her son. -Patient was advised to stay in the hospital but left AGAINST MEDICAL ADVICE last time. -He reports having pain in her right side of the chest due to the rib fracture. -We will continue her home pain medication [place] for now. -If needed patient can get morphine 2 mg for breakthrough pain. UTI: -Patient reports to be having burning urine sensation. -No suprapubic tenderness on palpation. -We will start her on IV ceftriaxone 1 g daily. -We will switch her to oral medications based on her urine culture sensitivity Chronic hypoxic respiratory failure: -Patient is on home oxygen 24 x 7 per patient -She is on 2 to 3 L of oxygen at home -We will continue her home inhalation medication. -Titrate her oxygen to saturations of 88 to 92%. HTN: -We will continue her home blood pressure medications. -Amlodipine 10 mg p.o., hydralazine 50 mg p.o. twice daily. Chronic back pain: -We will continue gabapentin 100 mg p.o. daily -We will continue [place] at home dose. -Tylenol as needed every 6 hours IDDM 2: -On hypoglycemic protocol -Insulin sliding scale -Patient takes 20 units of glargine at night, will start her on Levemir 20 units at night. Chronic diastolic CHF: -No evidence of exacerbation at this time. Severe COPD/emphysema: -We will continue on her home inhalation medication -Patient is on oxygen at home Current smoker: -We will start her on nicotine patch Hypothyroidism: -We will continue her home levothyroxine dose Osteoporosis: -Patient is on alendronate 70 mg p.o. weekly. CKD 3: -Patient's present creatinine is 0.9 normal now. Peripheral vascular disease s/p angioplasty/stenting: -We will continue her atorvastatin and Plavix Anxiety/depression: -We will continue her hydroxyzine. DVT prophylaxis: - teds and sequentials Attending Attestation: I performed a history and physical examination patient and discussed the patients management with the resident. I reviewed the residents note and agree with the documented findings and plan of care. Home Medications Scheduled Alendronate Sodium (Alendronate Sodium) 70 Mg Tablet, 70 MG PO 1XWK, (Reported) Amlodipine Besylate (Amlodipine Besylate) 10 Mg Tablet, 10 MG PO DAILY, (Reported) Atorvastatin Calcium (Atorvastatin Calcium) 40 Mg Tablet, 40 MG PO QHS, (Reported) Clopidogrel Bisulfate (Plavix) 75 Mg Tablet, 75 MG PO DAILY, (Reported) Duloxetine HCl (Duloxetine HCl) 60 Mg Capsule.dr, 60 MG PO DAILY, (Reported) Fluticasone/Vilanterol (Breo Ellipta 200-25 Mcg INH) 1 Each Blst.w.dev, 1 PUFF INH DAILY, (Reported) Furosemide (Furosemide) 20 Mg Tablet, 20 MG PO DAILY, (Reported) NEW RX, HAS NOT STARTED Gabapentin (Gabapentin) 100 Mg Capsule, 100 MG PO DAILY, (Reported) Hydralazine HCl (Hydralazine HCl) 50 Mg Tablet, 50 MG PO BID, (Reported) Insulin Glargine,Hum.rec.anlog (Basaglar Kwikpen U-100) 100 Unit/1 Ml Insuln.pen, 25 UNIT SC DAILY, (Reported) Levothyroxine Sodium (Levothyroxine Sodium) 75 Mcg Tablet, 75 MCG PO DAILY, (Reported) Lisinopril (Lisinopril) 40 Mg Tablet, 40 MG PO DAILY, (Reported) Metformin HCl (Metformin HCl) 500 Mg Tablet, 500 MG PO BID, (Reported) Prednisone (Prednisone) 10 Mg Tablet, 5 MG PO BID, (Reported) Umeclidinium Brm/Vilanterol Tr (Anoro Ellipta 62.5-25 Mcg INH) 1 Each Blst .w.dev, 1 PUFF INH DAILY, (Reported) Scheduled PRN Albuterol Sulfate (Albuterol Sulfate) 2.5 Mg/0.5 Ml Vial.neb, 1 VIAL NEB Q6H PRN for SOB/WHEEZING, (Reported) Albuterol Sulfate (Proair Hfa) 8.5 Gm Hfa.aer.ad, 2 PUFF INH QID PRN for SHORTNESS OF BREATH, (Reported) Hydrocodone/Acetaminophen (Hydrocodone-Acetamin 5-325 mg) 1 Each Tablet, 1 TAB PO Q6H PRN for P, (Reported) Hydroxyzine HCl (Hydroxyzine HCl) 10 Mg Tablet, 10 MG PO Q8H PRN for ANXIETY, (Reported) Miscellaneous Medications [med rec comment] , (Reported) MED LIST OBTAINED USING EXT MED HX Allergies Coded Allergies: Sulfa (Sulfonamide Antibiotics) (Verified Allergy, Mild, RASH, 07/14/20) bacitracin (Verified Allergy, Mild, RASH, 07/14/20) cortisone (Verified Allergy, Mild, RASH, 07/14/20) neomycin (Verified Allergy, Mild, RASH, 07/14/20) polymyxin B (Verified Allergy, Mild, RASH, 07/14/20) red dye (Unverified Allergy, Mild, rash OCCURRED ONCE WITH CAPSULE MED NO OTHER PROBLEMS WIT, 07/14/20) fluoxetine (Unverified Allergy, Unknown, 07/14/20) tramadol (Unverified Allergy, Unknown, 07/14/20) HAS HAD OXYCODONE BEFORE WITHOUT ISSUE A-FIB/CHADSVASC A-FIB History Current/History of A-Fib/PAF?: No Current PO Anticoag Therapy: No Vital Signs Vital Signs Date Time Temp Pulse Resp B/P (MAP) Pulse Ox O2 Delivery O2 Flow Rate FiO2 08/17/20 16:28 90 18 96 08/17/20 16:15 173/81 (111) 08/17/20 12:01 97.5 Room Air Laboratory Data Labs 24H Laboratory Tests 2 08/17/20 12:23: Bedside Glucose (Misc Panel) 309H 08/17/20 13:37: Anion Gap 8, Glomerular Filtration Rate > 60.0, Osmolality 301, Calcium Level 8.2L, Total Bilirubin 0.4, Direct Bilirubin 0.1, Aspartate Amino Transf (AST/SGOT) 24, Alanine Aminotransferase (ALT/SGPT) 30, Alkaline Phosphatase 137H , Ammonia < 10, Total Creatine Kinase 58, Creatine Kinase MB 2.7, Creatine Kinase MB Relative Index 4.66H, Troponin I 0.04, Total Protein 5.4L, Albumin 2.5L, Albumin/Globulin Ratio 0.9L, Thyroid Stimulating Hormone (TSH) 2.030 08/17/20 14:22: Immature Granulocyte % (Auto) 0.6, Neutrophils (%) (Auto) 91.8H, Lymphocytes (%) (Auto) 3.5L, Monocytes (%) (Auto) 3.0, Eosinophils (%) (Auto) 0.7, Basophils (%) (Auto) 0.4, Neutrophils # (Auto) 16.3H, Lymphocytes # (Auto) 0.6L, Monocytes # (Auto) 0.5, Eosinophils # (Auto) 0.1, Basophils # (Auto) 0.1, Nucleated Red Blood Cells % (auto) 0.0 08/17/20 14:40: POC pH (Misc Panel) 7.429, POC Base Excess (Misc Panel) -1.0, POC Saturated Percent O2 (Misc) 90L, POC pO2 (Misc Panel) 57.0L, POC pCO2 (Misc Panel) 35.6, POC HCO3 (Misc Panel) 23.6, POC Total CO2 (Misc Panel) 25.0 08/17/20 15:23: Urine Color YELLOW, Urine Appearance CLOUDYH, Urine pH 6.0, Urine Specific [place] 1.015, Urine Protein 3+H, Urine Glucose (UA) 3+H, Urine Ketones TRACEH, Urine Blood NEGATIVE, Urine Nitrite NEGATIVE, Urine Bilirubin NEGATIVE, Urine Urobilinogen 0.2, Urine Leukocyte Esterase 1+H, Urine WBC (Auto) 86H, Urine RBC (Auto) 18H, Urine Hyaline Casts (Auto) 0, Urine Bacteria (Auto) 1+H, Urine Squamous Epithelial Cells 1, Urine Mucus (Auto) SMALL, Urine Sperm (Auto) CBC/BMP Laboratory Tests 08/17/20 13:37 08/17/20 14:22 Microbiology Microbiology 08/17/20 Urine Culture, Received Pending Plan / VTE VTE Prophylaxis Ordered?: No Es Mcclain MD Aug 17, 2020 19:22 CHAYO WOODS MD Aug 19, 2020 06:29
[2020-08-17 19:30] LABS: RSV AMPLIFICATION NEGATIVE (NEGATIVE)
[2020-08-17 20:53] VITALS: BP 144/65
[2020-08-17] MEDS ORDERED: FLUTICASONE HFA 220 MCG 12 GM INHALER (FLOVENT) INH SCH (21:00)
[2020-08-17] MEDS ORDERED: LEVEMIR (INSULIN DETEMIR) 1 UNITS/0.01ML SC SCH (21:00)
[2020-08-17] MEDS: ATORVASTATIN 20 MG TAB PO SCH (21:26)
[2020-08-17] MEDS: predniSONE 5 MG TAB PO SCH (21:26)
[2020-08-17] MEDS: HumaLOG INSULIN (NovoLOG) PER UNIT SC SCH (21:27)
[2020-08-17] MEDS: **hydrALAZINE** 50 MG TAB PO SCH (21:27)
[2020-08-17] MEDS: ADVAIR HFA 230/21MCG INHALER INH SCH (21:36)
[2020-08-18] VITALS (7 sets, daily range): BP systolic 123–180; BP diastolic 56–79
[2020-08-18] MEDS: LEVOTHYROXINE 75MCG TABLET (0.075MG) PO SCH (05:37)
[2020-08-18] MEDS: NORCO, ANEXSIA 5/325MG TABLET (HYDROcodone/ACETAMINOPHEN) PO PRN (05:52)
[2020-08-18 06:21] LABS: BASO # 0.1 10^3/uL (0.0-0.2); BASO % 0.4 % (0.0-1.0); EOS # 0.2 10^3/uL (0.0-0.5); EOS % 1.4 % (0.0-3.0); HEMATOCRIT 35.6 % (36.0-47.0); HEMOGLOBIN 11.5 g/dl (12.0-15.5); LYMPH # 0.7 10^3/uL (1.5-5.0); LYMPH % 4.2 % (24.0-44.0); MEAN CORPUSCULAR HEMOGLOBIN 30.5 pg (27.0-33.0); MEAN CORPUSCULAR HGB CONC 32.3 g/dl (32.0-36.5); MEAN CORPUSCULAR VOLUME 94.4 fl (80.0-96.0); MONO # 0.6 10^3/uL (0.0-0.8); MONO % 3.8 % (2.0-8.0); NEUTROPHILS # 13.7 10^3/uL (1.5-8.5); NEUTROPHILS % 89.5 % (36.0-66.0); PLATELET COUNT, AUTOMATED 221 10^3/uL (150-450); RED BLOOD COUNT 3.77 10^6/uL (4.00-5.40); WHITE BLOOD COUNT 15.3 10^3/uL (4.0-10.0)
[2020-08-18 06:54] LABS: BLOOD UREA NITROGEN 27 MG/DL (7-18); CALCIUM LEVEL 8.6 MG/DL (8.8-10.2); CARBON DIOXIDE LEVEL 28 MEQ/L (21-32); CHLORIDE LEVEL 108 MEQ/L (98-107); GLOMERULAR FILTRATION RATE > 60.0 (>39); GLUCOSE, FASTING 36 MG/DL (70-100); MAGNESIUM LEVEL 1.8 MG/DL (1.8-2.4); POTASSIUM SERUM 4.7 MEQ/L (3.5-5.1); SODIUM LEVEL 141 MEQ/L (136-145)
[2020-08-18] MEDS: HumaLOG INSULIN (NovoLOG) PER UNIT SC SCH ×4 (07:30→20:19)
[2020-08-18] MEDS: TIOTROPIUM INHALER/CAPSULE (SPIRIVA) INH SCH ×2 (07:48→10:26)
[2020-08-18] MEDS: ADVAIR HFA 230/21MCG INHALER INH SCH ×2 (07:48→19:44)
[2020-08-18] MEDS: PANTOPRAZOLE 20 MG TAB PO SCH (08:47)
[2020-08-18] MEDS: GABAPENTIN 100 MG CAP PO SCH (08:47)
[2020-08-18] MEDS: DULoxetine 30 MG CAP (CYMBALTA) PO SCH (08:47)
[2020-08-18] MEDS: NICOTINE 14 MG/24 HR TRANSDERMAL TD SCH (08:47)
[2020-08-18] MEDS: predniSONE 5 MG TAB PO SCH ×2 (08:47→20:15)
[2020-08-18] MEDS: CLOPIDOGREL 75 MG TAB PO SCH (08:48)
[2020-08-18] MEDS: **hydrALAZINE** 50 MG TAB PO SCH (08:51)
--- NOTE | 2020-08-18 16:36 | ECGEPIP ---
[facility] - ED Test Date: 2020-08-17 Pat Name: ELA LIVINGSTON Department: Room: - Gender: Female Triage Registered Nurse: vc : 1945 Requested By: Tika Ortega Order Number: [id number] Reading MD: Clinton Negron Measurements Intervals [place] Rate: 89 P: 74 AL: 128 QRS: 24 QRSD: 100 T: 116 QT: 396 QTc: 481 Interpretive Statements Normal sinus rhythm Left ventricular hypertrophy with repolarization abnormality Nonspecific ST-T wave abnormalities Similar to tracing done 08-16-20 Electronically Signed on 08-18-2020 16:36:34 EDT by Clinton Negron
[2020-08-18] MEDS: cefTRIAXone SOD 1 GM in D5W MINI-BAG PLUS 50 ML IV SCH (17:03)
[2020-08-18] MEDS ORDERED: cefTRIAXone SOD 1GM VIAL (J0696 PER 250MG) IV SCH (18:00)
[2020-08-18] MEDS ORDERED: cefTRIAXone SOD 1GM VIAL (J0696 PER 250MG) IM SCH (18:00)
--- NOTE | 2020-08-18 18:53 | IPNPDOC ---
Text Note Date of Service The patient was seen on 08/18/20. NOTE Subjective: Patient was examined at bedside. She denies having any complaint. She reports having a good night sleep. She reports feeling much better than yesterday night. She reports having improvement in her back pain and epigastric as well. Today morning patient's blood glucose levels were very low 36, and she was immediately given applesauce and crackers. The repeat blood sugar levels were up within half an hour to 70s and an hour to 151. She denies having any symp toms during that time. Given her episode of hypoglycemia will hold off her Levemir 20 units today and see how her blood sugar levels are tomorrow morning. Objective: Physical exam: General: Patient was sitting in bed, no apparent distress. Cardiac: S1 and S2 could barely appreciate given her inspiratory and expiratory wheezes and rhonchi. Respiration: Patient has diffuse bilateral inspiratory and expiratory wheezes and rhonchi. Abdomen: Soft, no tenderness [patient reports decreasing her tenderness in the epigastric region], positive bowel sounds in all 4 quadrants. Extremities: No pedal edema appreciated. Assessment: 74-year-old female patient with extensive past medical history was brought in by EMS to the ED as patient called EMS by herself as she could not take care of herself because of the weakness and recent rib fracture she had after a fall, and reports to be having burning urine sensation. In the ED patient was further evaluated Showing leukocytosis, and UA showing 1+ bacteria, leukocyte esterase. Patient is being admitted under hospitalist service for pain management, further evaluation and management. Plan: Recent fall and rib fracture: -Patient reports having mild pain in her right rib region but far better with the medications she is getting. -We will continue her home pain medication [place] for now. -If needed patient can get morphine 2 mg for breakthrough pain. UTI: -Patient reports decrease in her burning sensation while urinating. -We will start her on IV ceftriaxone 1 g daily. - Her urine cultures are still pending -We will switch her to oral medications based on her urine culture sensitivity Chronic hypoxic respiratory failure: -Patient is on home oxygen 24 x 7 per patient -She is on 2 to 3 L of oxygen at home -We will continue her home inhalation medication. -Titrate her oxygen to saturations of 88 to 92%. -In the hospital she was on 2 L of oxygen when I saw her this morning. Epigastric pain: -Given all the pain medication patient takes she might be having some gastritis. -We will start her on Protonix 20 mg p.o. daily -Given that patient already has osteoporosis will only give this for a short period of time and will discontinue this medication upon discharge. HTN: -We will continue her home blood pressure medications. -Given her soft blood pressure this morning her home dose of amlodipine and hydralazine were adjusted to half the dosage. Amlodipine 5 mg p.o. daily and hydralazine 25 mg p.o. twice daily Chronic back pain: -We will continue gabapentin 100 mg p.o. daily -We will continue [place] at home dose. -Tylenol as needed every 6 hours IDDM 2: -On hypoglycemic protocol -Insulin sliding scale -We will hold her night Levemir dose of insulin. Given her hypoglycemic episode today morning. Chronic diastolic CHF: -No evidence of exacerbation at this time. Severe COPD/emphysema: -We will continue on her home inhalation medication -Patient is on oxygen at home Current smoker: -We will start her on nicotine patch Hypothyroidism: -We will continue her home levothyroxine dose Osteoporosis: -Patient is on alendronate 70 mg p.o. weekly. CKD 3: -Patient's present creatinine is 0.9 normal now. Peripheral vascular disease s/p angioplasty/stenting: -We will continue her atorvastatin and Plavix Anxiety/depression: -We will continue her hydroxyzine. DVT prophylaxis: - teds and sequentials Attending Attestation: I saw and evaluated patient. I agree with the findings and plan of care as documented in the residents note. VS,Bertrambone, I+O VS, Bertrambone, I+O Laboratory Tests 08/18/20 05:48 Vital Signs Date Time Temp Pulse Resp B/P (MAP) Pulse Ox O2 Delivery O2 Flow Rate FiO2 08/18/20 14:00 98.0 88 1 131/70 (90) 96 Nasal Cannula 2.0 I&O- Last 24 Hours up to 6 AM 08/18/20 06:00 Intake Total 350 ml Balance 350 ml Es Mcclain MD Aug 18, 2020 18:53 CHAYO WOODS MD Aug 19, 2020 06:33
[2020-08-18] MEDS: ATORVASTATIN 20 MG TAB PO SCH (20:15)
[2020-08-18] MEDS ORDERED: **hydrALAZINE HCL** 25 MG TAB PO SCH (21:00)
[2020-08-19] VITALS (7 sets, daily range): BP systolic 111–176; BP diastolic 64–86
[2020-08-19] MEDS: hydrOXYzine 10 MG TAB PO PRN ×3 (02:21→23:46)
[2020-08-19] MEDS ORDERED: HumaLOG INSULIN (NovoLOG) PER UNIT SC STA (03:41)
[2020-08-19] MEDS ORDERED: LEVEMIR (INSULIN DETEMIR) 1 UNITS/0.01ML SC ONE (05:35)
[2020-08-19] MEDS: LEVOTHYROXINE 75MCG TABLET (0.075MG) PO SCH (05:55)
[2020-08-19 05:56] LABS: BASO % 0.4 % (0.0-1.0); EOS # 0.1 10^3/uL (0.0-0.5); EOS % 1.6 % (0.0-3.0); HEMATOCRIT 33.2 % (36.0-47.0); HEMOGLOBIN 10.8 g/dl (12.0-15.5); LYMPH # 0.4 10^3/uL (1.5-5.0); LYMPH % 4.8 % (24.0-44.0); MEAN CORPUSCULAR HGB CONC 32.5 g/dl (32.0-36.5); MEAN CORPUSCULAR VOLUME 95.4 fl (80.0-96.0); MONO # 0.4 10^3/uL (0.0-0.8); MONO % 4.8 % (2.0-8.0); NEUTROPHILS # 7.8 10^3/uL (1.5-8.5); NEUTROPHILS % 87.6 % (36.0-66.0); PLATELET COUNT, AUTOMATED 181 10^3/uL (150-450); RED BLOOD COUNT 3.48 10^6/uL (4.00-5.40); WHITE BLOOD COUNT 8.9 10^3/uL (4.0-10.0)
[2020-08-19 06:27] LABS: BLOOD UREA NITROGEN 33 MG/DL (7-18); CALCIUM LEVEL 8.1 MG/DL (8.8-10.2); CARBON DIOXIDE LEVEL 27 MEQ/L (21-32); CHLORIDE LEVEL 100 MEQ/L (98-107); CREATININE FOR GFR 0.95 MG/DL (0.55-1.30); GLOMERULAR FILTRATION RATE > 60.0 (>39); GLUCOSE, FASTING 450 MG/DL (70-100); MAGNESIUM LEVEL 1.8 MG/DL (1.8-2.4); POTASSIUM SERUM 4.6 MEQ/L (3.5-5.1); SODIUM LEVEL 134 MEQ/L (136-145)
[2020-08-19] MEDS: ADVAIR HFA 230/21MCG INHALER INH SCH ×2 (07:05→19:19)
[2020-08-19] MEDS: TIOTROPIUM INHALER/CAPSULE (SPIRIVA) INH SCH (07:05)
[2020-08-19] MEDS ORDERED: LEVEMIR (INSULIN DETEMIR) 1 UNITS/0.01ML SC SCH (09:00)
[2020-08-19] MEDS ORDERED: amLODIPine 5 MG TAB PO SCH (09:00)
[2020-08-19] MEDS: CLOPIDOGREL 75 MG TAB PO SCH (09:21)
[2020-08-19] MEDS: GABAPENTIN 100 MG CAP PO SCH (09:21)
[2020-08-19] MEDS: predniSONE 5 MG TAB PO SCH ×2 (09:21→20:52)
[2020-08-19] MEDS: DULoxetine 30 MG CAP (CYMBALTA) PO SCH (09:21)
[2020-08-19] MEDS: **hydrALAZINE** 50 MG TAB PO SCH ×2 (09:21→20:52)
[2020-08-19] MEDS: HumaLOG INSULIN (NovoLOG) PER UNIT SC SCH ×4 (09:22→20:52)
[2020-08-19] MEDS: NICOTINE 14 MG/24 HR TRANSDERMAL TD SCH (09:23)
[2020-08-19] MEDS: PANTOPRAZOLE 20 MG TAB PO SCH (09:37)
[2020-08-19] MEDS: NORCO, ANEXSIA 5/325MG TABLET (HYDROcodone/ACETAMINOPHEN) PO PRN (14:28)
[2020-08-19] MEDS: cefTRIAXone SOD 1 GM in D5W MINI-BAG PLUS 50 ML IV SCH (18:09)
--- NOTE | 2020-08-19 18:52 | IPNPDOC ---
Text Note Date of Service The patient was seen on 08/19/20. NOTE Subjective: Patient was examined at bedside. Patient denies having any complaints. She had a good night sleep. She reports to be feeling better. Patient's blood glucose levels today morning were 400 she did get lispro 10 units at around 3 AM and Levemir 10 units at 5 AM. Given her blood glucose levels being elevated in the morning we will start her on Levemir 15 units at nightly. Patient's blood pressure today morning was in 170s systolic will increase her dose of amlodipine and hydralazine to her home dose. Objective: Physical exam: General: Patient was sitting in bed, no apparent distress. Cardiac: S1 and S2 normal, no murmurs appreciated. Lungs: Bilateral both inspiratory and expiratory wheezes and rhonchi all throughout the lung. Abdomen: Soft, no tenderness to palpation. Extremities: No pedal edema. Assessment: 74-year-old female patient with extensive past medical history was brought in by EMS to the ED as patient called EMS by herself as she could not take care of herself because of the weakness and recent rib fracture she had after a fall, and reports to be having burning urine sensation. In the ED patient was further evaluated Showing leukocytosis, and UA showing 1+ bacteria, leukocyte esterase. Patient is being admitted under hospitalist service for pain management, further evaluation and management. Plan: Recent fall and rib fracture: -Patient reports very mild pain in her right rib region from her fracture. -We will continue the same pain medication as she is getting. UTI: -We will switch to IV ceftriaxone to oral cefdinir. -Patient got IV ceftriaxone for 3 days and will continue cefdinir for 2 more days -Patient's urine cultures were back and they were positive for E. coli and is sensitive to all Chronic hypoxic respiratory failure: -Patient is on home oxygen 24 x 7 per patient -She is on 2 to 3 L of oxygen at home -We will continue her home inhalation medication. -Titrate her oxygen to saturations of 88 to 92%. -In the hospital she was on 2 L of oxygen when I saw her this morning and was saturating at 97 to 99%. -We will try to wean her down to 1 L of nasal cannula with a saturation maintenance of 88 to 92% given her COPD and emphysema Epigastric pain: -Given all the pain medication patient takes she might be having some gastritis. -We will start her on Protonix 20 mg p.o. daily -Given that patient already has osteoporosis will only give this for a short period of time and will discontinue this medication upon discharge. HTN: -We will continue her home blood pressure medications. -We will start her on home doses of amlodipine and hydralazine from today Chronic back pain: -We will continue gabapentin 100 mg p.o. daily -We will continue [place] at home dose. -Tylenol as needed every 6 hours IDDM 2: -On hypoglycemic protocol -Insulin sliding scale -We will start her on Levemir 15 units nightly. Chronic diastolic CHF: -No evidence of exacerbation at this time. Severe COPD/emphysema: -We will continue on her home inhalation medication -Patient is on oxygen at home Current smoker: -We will start her on nicotine patch Hypothyroidism: -We will continue her home levothyroxine dose Osteoporosis: -Patient is on alendronate 70 mg p.o. weekly. CKD 3: -Patient's present creatinine is 0.9 normal now. Peripheral vascular disease s/p angioplasty/stenting: -We will continue her atorvastatin and Plavix Anxiety/depression: -We will continue her hydroxyzine. DVT prophylaxis: - teds and sequentials Attending Attestation: I saw and evaluated patient. I agree with the findings and plan of care as documented in the residents note. VS,Bertrambone, I+O VS, Fishbone, I+O Laboratory Tests 08/19/20 05:37 Vital Signs Date Time Temp Pulse Resp B/P (MAP) Pulse Ox O2 Delivery O2 Flow Rate FiO2 08/19/20 16:27 91 Nasal Cannula 1.0 08/19/20 15:20 16 08/19/20 14:00 98.6 93 111/74 (86) I&O- Last 24 Hours up to 6 AM 08/19/20 06:00 Intake Total 2550 ml Balance 2550 ml Es Mcclain MD Aug 19, 2020 18:52 CHAYO WOODS MD Aug 20, 2020 13:59
[2020-08-19] MEDS: ATORVASTATIN 20 MG TAB PO SCH (20:52)
[2020-08-19] MEDS: LEVEMIR (INSULIN DETEMIR) 1 UNITS/0.01ML SC SCH (20:52)
[2020-08-20 02:00] VITALS: BP 180/78
[2020-08-20] MEDS ORDERED: **hydrALAZINE HCL** 25 MG TAB PO ONE (03:10)
[2020-08-20] MEDS: RAMELTEON 8 MG TAB (ROZEREM) PO PRN ×2 (03:16→21:40)
[2020-08-20] MEDS: LEVOTHYROXINE 75MCG TABLET (0.075MG) PO SCH (05:30)
[2020-08-20 06:00] VITALS: BP 152/70
[2020-08-20 06:59] LABS: BASO % 0.4 % (0.0-1.0); EOS # 0.1 10^3/uL (0.0-0.5); EOS % 1.3 % (0.0-3.0); HEMATOCRIT 34.5 % (36.0-47.0); HEMOGLOBIN 11.4 g/dl (12.0-15.5); LYMPH # 0.6 10^3/uL (1.5-5.0); MEAN CORPUSCULAR HEMOGLOBIN 30.9 pg (27.0-33.0); MEAN CORPUSCULAR VOLUME 93.5 fl (80.0-96.0); MONO # 0.6 10^3/uL (0.0-0.8); MONO % 5.6 % (2.0-8.0); NEUTROPHILS # 8.6 10^3/uL (1.5-8.5); NEUTROPHILS % 85.9 % (36.0-66.0); PLATELET COUNT, AUTOMATED 200 10^3/uL (150-450); RED BLOOD COUNT 3.69 10^6/uL (4.00-5.40)
[2020-08-20] MEDS: ADVAIR HFA 230/21MCG INHALER INH SCH ×2 (07:28→19:37)
[2020-08-20] MEDS: TIOTROPIUM INHALER/CAPSULE (SPIRIVA) INH SCH (07:28)
[2020-08-20 07:29] LABS: BLOOD UREA NITROGEN 33 MG/DL (7-18); CALCIUM LEVEL 8.6 MG/DL (8.8-10.2); CARBON DIOXIDE LEVEL 29 MEQ/L (21-32); CHLORIDE LEVEL 103 MEQ/L (98-107); CREATININE FOR GFR 0.82 MG/DL (0.55-1.30); GLOMERULAR FILTRATION RATE > 60.0 (>39); GLUCOSE, FASTING 167 MG/DL (70-100); POTASSIUM SERUM 4.6 MEQ/L (3.5-5.1); SODIUM LEVEL 138 MEQ/L (136-145)
[2020-08-20] MEDS: HumaLOG INSULIN (NovoLOG) PER UNIT SC SCH ×4 (08:04→21:43)
[2020-08-20] MEDS: GABAPENTIN 100 MG CAP PO SCH (08:05)
[2020-08-20] MEDS: predniSONE 5 MG TAB PO SCH ×2 (08:06→21:41)
[2020-08-20] MEDS: CLOPIDOGREL 75 MG TAB PO SCH (08:06)
[2020-08-20] MEDS: CEFDINIR 300 MG CAP (OMNICEF) PO SCH ×2 (08:06→21:40)
[2020-08-20] MEDS: DULoxetine 30 MG CAP (CYMBALTA) PO SCH (08:06)
[2020-08-20] MEDS: **hydrALAZINE** 50 MG TAB PO SCH ×2 (08:07→21:47)
[2020-08-20] MEDS: NICOTINE 14 MG/24 HR TRANSDERMAL TD SCH (08:08)
[2020-08-20] MEDS: PANTOPRAZOLE 20 MG TAB PO SCH (08:17)
[2020-08-20 10:00] VITALS: BP 151/78
[2020-08-20 14:00] VITALS: BP 133/68
[2020-08-20] MEDS: NORCO, ANEXSIA 5/325MG TABLET (HYDROcodone/ACETAMINOPHEN) PO PRN (16:54)
[2020-08-20] MEDS: hydrOXYzine 10 MG TAB PO PRN (21:41)
[2020-08-20] MEDS: ATORVASTATIN 20 MG TAB PO SCH (21:41)
[2020-08-20] MEDS: NICOTINE 21MG/24HR 1 EA TRANSDERMAL TD PRN (21:42)
[2020-08-20] MEDS: LEVEMIR (INSULIN DETEMIR) 1 UNITS/0.01ML SC SCH (21:42)
[2020-08-20 21:45] VITALS: BP 158/70
[2020-08-20 23:00] VITALS: BP 140/70
[2020-08-21] MEDS ORDERED: MICONAZOLE TOPICAL 2% CREAM 15GM TOP PRN (00:35)
[2020-08-21 06:00] VITALS: BP 125/77
[2020-08-21 06:04] LABS: BASO % 0.5 % (0.0-1.0); EOS # 0.2 10^3/uL (0.0-0.5); EOS % 1.9 % (0.0-3.0); HEMATOCRIT 32.1 % (36.0-47.0); HEMOGLOBIN 10.5 g/dl (12.0-15.5); LYMPH # 0.5 10^3/uL (1.5-5.0); LYMPH % 6.4 % (24.0-44.0); MEAN CORPUSCULAR HEMOGLOBIN 30.7 pg (27.0-33.0); MEAN CORPUSCULAR HGB CONC 32.7 g/dl (32.0-36.5); MEAN CORPUSCULAR VOLUME 93.9 fl (80.0-96.0); MONO # 0.5 10^3/uL (0.0-0.8); MONO % 5.9 % (2.0-8.0); NEUTROPHILS # 7.1 10^3/uL (1.5-8.5); NEUTROPHILS % 84.4 % (36.0-66.0); PLATELET COUNT, AUTOMATED 177 10^3/uL (150-450); RED BLOOD COUNT 3.42 10^6/uL (4.00-5.40); WHITE BLOOD COUNT 8.5 10^3/uL (4.0-10.0)
[2020-08-21] MEDS: LEVOTHYROXINE 75MCG TABLET (0.075MG) PO SCH (06:14)
[2020-08-21 06:25] LABS: CALCIUM LEVEL 8.6 MG/DL (8.8-10.2); CREATININE FOR GFR 1.03 MG/DL (0.55-1.30); GLOMERULAR FILTRATION RATE 55.8 (>39); MAGNESIUM LEVEL 1.9 MG/DL (1.8-2.4); POTASSIUM SERUM 4.6 MEQ/L (3.5-5.1)
[2020-08-21] MEDS: ADVAIR HFA 230/21MCG INHALER INH SCH ×2 (07:09→20:40)
[2020-08-21] MEDS: TIOTROPIUM INHALER/CAPSULE (SPIRIVA) INH SCH (07:09)
[2020-08-21] MEDS: GABAPENTIN 100 MG CAP PO SCH (07:55)
[2020-08-21] MEDS: PANTOPRAZOLE 20 MG TAB PO SCH (07:55)
[2020-08-21] MEDS: DULoxetine 30 MG CAP (CYMBALTA) PO SCH (07:55)
[2020-08-21] MEDS: CLOPIDOGREL 75 MG TAB PO SCH (07:55)
[2020-08-21] MEDS: HumaLOG INSULIN (NovoLOG) PER UNIT SC SCH ×4 (07:55→22:01)
[2020-08-21] MEDS: predniSONE 5 MG TAB PO SCH ×2 (07:56→21:59)
[2020-08-21] MEDS: **hydrALAZINE** 50 MG TAB PO SCH ×2 (08:01→22:04)
[2020-08-21] MEDS ORDERED: HumaLOG INSULIN (NovoLOG) PER UNIT SC ONE (18:50)
[2020-08-21] MEDS: RAMELTEON 8 MG TAB (ROZEREM) PO PRN (22:00)
[2020-08-21] MEDS: ATORVASTATIN 20 MG TAB PO SCH (22:00)
[2020-08-21] MEDS: hydrOXYzine 10 MG TAB PO PRN (22:00)
[2020-08-21] MEDS: LEVEMIR (INSULIN DETEMIR) 1 UNITS/0.01ML SC SCH (22:00)
[2020-08-21] MEDS: NICOTINE 21MG/24HR 1 EA TRANSDERMAL TD PRN (22:01)
[2020-08-22] MEDS: LEVOTHYROXINE 75MCG TABLET (0.075MG) PO SCH (05:37)
[2020-08-22 06:00] VITALS: BP 163/75
[2020-08-22 06:43] LABS: BASO # 0.1 10^3/uL (0.0-0.2); BASO % 0.5 % (0.0-1.0); EOS # 0.1 10^3/uL (0.0-0.5); EOS % 1.4 % (0.0-3.0); HEMATOCRIT 32.8 % (36.0-47.0); HEMOGLOBIN 10.8 g/dl (12.0-15.5); LYMPH # 0.8 10^3/uL (1.5-5.0); LYMPH % 8.4 % (24.0-44.0); MEAN CORPUSCULAR HEMOGLOBIN 30.9 pg (27.0-33.0); MEAN CORPUSCULAR HGB CONC 32.9 g/dl (32.0-36.5); MEAN CORPUSCULAR VOLUME 93.7 fl (80.0-96.0); MONO # 0.6 10^3/uL (0.0-0.8); MONO % 6.8 % (2.0-8.0); NEUTROPHILS # 7.6 10^3/uL (1.5-8.5); NEUTROPHILS % 81.4 % (36.0-66.0); PLATELET COUNT, AUTOMATED 180 10^3/uL (150-450); WHITE BLOOD COUNT 9.3 10^3/uL (4.0-10.0)
[2020-08-22 07:11] LABS: BLOOD UREA NITROGEN 53 MG/DL (7-18); CALCIUM LEVEL 8.6 MG/DL (8.8-10.2); CARBON DIOXIDE LEVEL 30 MEQ/L (21-32); CHLORIDE LEVEL 103 MEQ/L (98-107); CREATININE FOR GFR 0.92 MG/DL (0.55-1.30); GLOMERULAR FILTRATION RATE > 60.0 (>39); GLUCOSE, FASTING 203 MG/DL (70-100); MAGNESIUM LEVEL 2.1 MG/DL (1.8-2.4); POTASSIUM SERUM 4.6 MEQ/L (3.5-5.1); SODIUM LEVEL 136 MEQ/L (136-145)
[2020-08-22] MEDS: TIOTROPIUM INHALER/CAPSULE (SPIRIVA) INH SCH (07:16)
[2020-08-22] MEDS: ADVAIR HFA 230/21MCG INHALER INH SCH (07:17)
[2020-08-22] MEDS: HumaLOG INSULIN (NovoLOG) PER UNIT SC SCH ×2 (08:36→12:15)
[2020-08-22] MEDS: CLOPIDOGREL 75 MG TAB PO SCH (08:36)
[2020-08-22] MEDS: DULoxetine 30 MG CAP (CYMBALTA) PO SCH (08:36)
[2020-08-22] MEDS: PANTOPRAZOLE 20 MG TAB PO SCH (08:36)
[2020-08-22] MEDS: predniSONE 5 MG TAB PO SCH (08:36)
[2020-08-22] MEDS: GABAPENTIN 100 MG CAP PO SCH (08:36)
[2020-08-22 08:38] VITALS: BP 164/75
[2020-08-22] MEDS: **hydrALAZINE** 50 MG TAB PO SCH (08:39)
[2020-08-22] MEDS: NORCO, ANEXSIA 5/325MG TABLET (HYDROcodone/ACETAMINOPHEN) PO PRN (08:43)
[2020-08-22] MEDS ORDERED: QC A650T3 PO (11:34)
--- NOTE | 2020-08-22 22:09 | DS.PDOC ---
Discharge Summary General Date of Admission Aug 17, 2020 at 17:01 Date of Discharge Aug 22, 2020 Discharge Summary PROCEDURES PERFORMED DURING STAY: None ADMITTING DIAGNOSES: 1. Recent fall with rib fracture 2. UTI 3. Chronic hypoxic respiratory failure 4. Hypertension 5. Chronic back pain 6. IDDM type 2 7. Chronic diastolic CHF 8. COPD 9. Current smoker 10. Hypothyroidism 11. Osteoporosis 12. CKD stage 3 13. Peripheral vascular disease s/p angioplasty and stenting 14. Anxiety/depression DISCHARGE DIAGNOSES: 1. Recent fall with rib fracture 2. E.coli UTI 3. Chronic hypoxic respiratory failure 4. Hypertension 5. Chronic back pain 6. IDDM type 2 7. Chronic diastolic CHF 8. COPD 9. Current smoker 10. Hypothyroidism 11. Osteoporosis 12. CKD stage 3 13. Peripheral vascular disease s/p angioplasty and stenting 14. Anxiety/depression COMPLICATIONS/CHIEF COMPLAINT: Altered Mental Status, Rib Fx, Uti. HISTORY OF PRESENT ILLNESS: Copied from admitting provider's H&P " 74-year-old female with extensive past medical history who called EMS herself as she could not tolerate the pain and could not take care of herself and EMS brought her to [facility] ED. Patient she was seen in the ED couple of days ago as she had a fall and had a rib fracture but did not want to be staying in the hospital and left AGAINST MEDICAL ADVICE. She reports she is at baseline forgetful and does not remember things well, but she is oriented to time, place and person. She reports having epigastric pain with scales about 5-6/10, pressure-like pain, no radiation, she feels better when she lays down rather than sitting[given that patient recently had a fall and had her tailbone broken she feels more pain while sitting] she denies any association with food, denies having any nausea, vomiting, diarrhea. She also reports having burning sensation while urinating. She could not tell me since how long this has been going on for. " HOSPITAL COURSE: Patient was found to have E.coli UTI that was pansensitive. Patient was initially treated with ceftriaxone, but then transitioned to cefdinir. Patient completed 5 day antibiotic course here while waiting for placement for rehab. Today, patient cleared physical therapy and would not need placement for rehab. Rib pain was controlled with acetaminophen and [place]. She felt well and felt ready for home. Patient was discharged home. DISCHARGE MEDICATIONS: Please see below. ALLERGIES: Please see below. PHYSICAL EXAMINATION ON DISCHARGE: VITAL SIGNS: Please see below. GENERAL: Comfortable, in no apparent distress. HEENT: Sclera clear. NECK: Supple. RESPIRATORY: Diminished. CARDIOVASCULAR: Regular rate and rhythm. ABDOMEN: Soft, nontender. Normal bowel sounds. MUSCLE SKELETAL: No pedal edema. PSYCHOLOGICAL: Normal mood and affect. LABORATORY DATA: Please see below. IMAGING: Radiologist interpretation CT chest without contrast 1. Acute lateral right 8th rib fracture. No associated pulmonary parenchymal contusion, effusion, or pneumothorax. The suspicious thin linear foci of gas on x-ray likely represented sheet artifact rather than mediastinal/soft tissue injury. 2. Chronic COPD/emphysematous changes with scattered scarring and pleuroparenchymal changes similar to prior examination. However subtle new areas of small focal nodularity in the right lower lobe and linear atelectasis in the basilar right lower lobe are identified and may warrant short-term follow-up to resolution. PROGNOSIS: Good ACTIVITY: As tolerated. DIET: Consistent carbohydrate DISCHARGE PLAN: Home DISPOSITION: 01 Home, Self-Care. DISCHARGE INSTRUCTIONS: 1. Follow up with PCP within 1 week DISCHARGE CONDITION: Stable. Total time spent on discharge planning, discharge summary, and medication reconciliation: 45 minutes Vital Signs/I&Os Vital Signs Date Time Temp Pulse Resp B/P (MAP) Pulse Ox O2 Delivery O2 Flow Rate FiO2 08/22/20 14:25 94 Room Air 08/22/20 09:40 18 1.0 08/22/20 08:38 95 164/75 08/22/20 06:00 97.6 I&O- Last 24 Hours up to 6 AM 08/22/20 06:00 Intake Total 1224 ml Output Total 0 ml Balance 1224 ml Laboratory Data Labs 24H Laboratory Tests 2 08/22/20 06:12: Immature Granulocyte % (Auto) 1.5, Neutrophils (%) (Auto) 81.4H, Lymphocytes (%) (Auto) 8.4L, Monocytes (%) (Auto) 6.8, Eosinophils (%) (Auto) 1.4, Basophils (%) (Auto) 0.5, Neutrophils # (Auto) 7.6, Lymphocytes # (Auto) 0.8L, Monocytes # (Auto) 0.6, Eosinophils # (Auto) 0.1, Basophils # (Auto) 0.1, Nucleated Red B lood Cells % (auto) 0.0, Anion Gap 3L, Glomerular Filtration Rate > 60.0, Calcium Level 8.6L, Magnesium Level 2.1 08/22/20 11:48: Bedside Glucose (Misc Panel) 317H CBC/BMP Laboratory Tests 08/22/20 06:12 FSBS Laboratory Tests Test 08/22/20 11:48 Range/Units Bedside Glucose (Misc Panel) 317 83-110 MG/DL Microbiology Microbiology 08/17/20 Urine Culture - Final, Complete Escherichia Coli Discharge Medications Scheduled Alendronate Sodium (Alendronate Sodium) 70 Mg Tablet, 70 MG PO 1XWK, (Reported) Amlodipine Besylate (Amlodipine Besylate) 10 Mg Tablet, 10 MG PO DAILY, (Reported) Atorvastatin Calcium (Atorvastatin Calcium) 40 Mg Tablet, 40 MG PO QHS, (Reported) Clopidogrel Bisulfate (Plavix) 75 Mg Tablet, 75 MG PO DAILY, (Reported) Duloxetine HCl (Duloxetine HCl) 60 Mg Capsule.dr, 60 MG PO DAILY, (Reported) Fluticasone/Vilanterol (Breo Ellipta 200-25 Mcg INH) 1 Each Blst.w.dev, 1 PUFF INH DAILY, (Reported) Furosemide (Furosemide) 20 Mg Tablet, 20 MG PO DAILY, (Reported) NEW RX, HAS NOT STARTED Gabapentin (Gabapentin) 100 Mg Capsule, 100 MG PO DAILY, (Reported) Hydralazine HCl (Hydralazine HCl) 50 Mg Tablet, 50 MG PO BID, (Reported) Insulin Glargine,Hum.rec.anlog (Basaglar Kwikpen U-100) 100 Unit/1 Ml Insuln.pen, 25 UNIT SC DAILY, (Reported) Levothyroxine Sodium (Levothyroxine Sodium) 75 Mcg Tablet, 75 MCG PO DAILY, (Reported) Lisinopril (Lisinopril) 40 Mg Tablet, 40 MG PO DAILY, (Reported) Metformin HCl (Metformin HCl) 500 Mg Tablet, 500 MG PO BID, (Reported) Prednisone (Prednisone) 10 Mg Tablet, 5 MG PO BID, (Reported) Umeclidinium Brm/Vilanterol Tr (Anoro Ellipta 62.5-25 Mcg INH) 1 Each Blst.w.dev, 1 PUFF INH DAILY, (Reported) Scheduled PRN Acetaminophen (Acetaminophen 8 Hour) 650 Mg Tablet.er, 650 MG PO Q8HP PRN for pain Albuterol Sulfate (Albuterol Sulfate) 2.5 Mg/0.5 Ml Vial.neb, 1 VIAL NEB Q6H PRN for SOB/WHEEZING, (Reported) Albuterol Sulfate (Proair Hfa) 8.5 Gm Hfa.aer.ad, 2 PUFF INH QID PRN for SHORTNESS OF BREATH, (Reported) Hydrocodone/Acetaminophen (Hydrocodone-Acetamin 5-325 mg) 1 Each Tablet, 1 TAB PO Q6H PRN for P, (Reported) Hydroxyzine HCl (Hydroxyzine HCl) 10 Mg Tablet, 10 MG PO Q8H PRN for ANXIETY, (Reported) Miscellaneous Medications [med rec comment] , (Reported) MED LIST OBTAINED USING EXT MED HX Allergies Coded Allergies: Sulfa (Sulfonamide Antibiotics) (Verified Allergy, Mild, RASH, 07/14/20) bacitracin (Verified Allergy, Mild, RASH, 07/14/20) cortisone (Verified Allergy, Mild, RASH, 07/14/20) neomycin (Verified Allergy, Mild, RASH, 07/14/20) polymyxin B (Verified Allergy, Mild, RASH, 07/14/20) red dye (Unverified Allergy, Mild, rash OCCURRED ONCE WITH CAPSULE MED NO OTHER PROBLEMS WIT, 07/14/20) fluoxetine (Unverified Allergy, Unknown, 07/14/20) tramadol (Unverified Allergy, Unknown, 07/14/20) HAS HAD OXYCODONE BEFORE WITHOUT ISSUE COLTON LEIVA DO Aug 22, 2020 22:09
[2020-08-23] MEDS ORDERED: ACET-910 PO (15:18)
== END 2020-08-22 16:49 | disposition home or self-care (01) | DRG 206 ==
LOC: M ED 11:58 → EDBD 11:58 → M ED INP 17:01 → ENRESERV 19:59 → M MSPAV 20:55
PROVIDERS: ADMIT Internal Medicine; ATTEND Internal Medicine
DX: S22.31XA Fracture of one rib, right side, initial encounter for closed fracture (principal); N39.0 Urinary tract infection, site not specified; I13.0 Hypertensive heart and chronic kidney disease with heart failure and stage 1 through stage 4 chronic kidney disease, or unspecified chronic kidney disease; I50.32 Chronic diastolic (congestive) heart failure; J96.11 Chronic respiratory failure with hypoxia; E11.649 Type 2 diabetes mellitus with hypoglycemia without coma; I16.0 Hypertensive urgency; J43.9 Emphysema, unspecified; R33.9 Retention of urine, unspecified; D72.829 Elevated white blood cell count, unspecified; R41.82 Altered mental status, unspecified; N18.30 Chronic kidney disease, stage 3 unspecified; D64.9 Anemia, unspecified; M48.07 Spinal stenosis, lumbosacral region; E03.9 Hypothyroidism, unspecified; W01.10XA Fall on same level from slipping, tripping and stumbling with subsequent striking against unspecified object, initial encounter; Y92.009 Unspecified place in unspecified non-institutional (private) residence as the place of occurrence of the external cause; Y93.9 Activity, unspecified; G89.11 Acute pain due to trauma; E11.51 Type 2 diabetes mellitus with diabetic peripheral angiopathy without gangrene; Y99.9 Unspecified external cause status; K29.70 Gastritis, unspecified, without bleeding; R91.8 Other nonspecific abnormal finding of lung field; F17.200 Nicotine dependence, unspecified, uncomplicated; E11.22 Type 2 diabetes mellitus with diabetic chronic kidney disease; Z88.8 Allergy status to other drugs, medicaments and biological substances; M81.0 Age-related osteoporosis without current pathological fracture; F32.9 Major depressive disorder, single episode, unspecified; F41.9 Anxiety disorder, unspecified; Z99.81 Dependence on supplemental oxygen; Z91.81 History of falling; Z79.899 Other long term (current) drug therapy; Z79.02 Long term (current) use of antithrombotics/antiplatelets; Z95.820 Peripheral vascular angioplasty status with implants and grafts; Z85.51 Personal history of malignant neoplasm of bladder; Z79.4 Long term (current) use of insulin; Z79.891 Long term (current) use of opiate analgesic; Z88.1 Allergy status to other antibiotic agents; Z88.5 Allergy status to narcotic agent; Z91.02 Food additives allergy status; Z79.52 Long term (current) use of systemic steroids; Z88.2 Allergy status to sulfonamides

== ENCOUNTER 2020-08-23 13:04 | Observation (INO) | payer MEDICARE ==
[~2020-08-23] VITALS: Ht 157.5 cm; Wt 53.9 kg
[~2020-08-23 13:04] MED LIST changes: +BREO1INH3 INH; +HYDR-4571 PO; +QC A650T3 PO
[2020-08-23] MEDS ORDERED: methylPREDNISolone 125MG 2ML VIAL IV ONE (13:30)
[2020-08-23] MEDS ORDERED: COMBIVENT RESPIMAT 100-20MCG INHALER 4GM INH ONE (13:30)
--- NOTE | 2020-08-23 13:37 | REP ---
INDICATION: DYSPNEA/COUGH. COMPARISON: Comparison chest x-ray August 17, 2020. TECHNIQUE: Portable upright AP chest radiograph. FINDINGS: EKG monitoring electrodes overlie the chest. There are increased markings and some pleural thickening in the right upper lobe distribution. This is unchanged from the August 17, 2020 study. There is a right lateral rib fracture inferiorly also unchanged. Platelike atelectasis is noted in the right base today. The left lung remains clear. Heart is not enlarged. The thoracic aorta is tortuous and calcific.. There is some diffuse osteopenia. IMPRESSION: Platelike atelectasis right base. Infiltrate pleural thickening and atelectasis right upper lobe distribution unchanged. Right lateral rib fracture.. <Electronically signed by Aravind Sumner > 08/23/20 [id number]
[2020-08-23 13:51] LABS: VENOUS BASE EXCESS 1.6 (-2.0-2.0); VENOUS HCO3 24.6 MEQ/L (23.0-27.0); VENOUS O2 SATURATION 98.2 % (60.0-80.0); VENOUS PARTIAL PRESSURE CO2 33.5 mmHg (38.0-50.0); VENOUS PARTIAL PRESSURE O2 131.5 mmHg (30.0-50.0); VENOUS PH 7.484 UNITS (7.330-7.430); VENOUS STANDARD HCO3 25.9 MEQ/L; VENOUS TOTAL CO2 25.6 MEQ/L (24.0-28.0)
[2020-08-23 13:57] LABS: BASO # 0.1 10^3/uL (0.0-0.2); BASO % 0.6 % (0.0-1.0); EOS # 0.2 10^3/uL (0.0-0.5); HEMOGLOBIN 10.8 g/dl (12.0-15.5); LYMPH # 1.2 10^3/uL (1.5-5.0); LYMPH % 10.6 % (24.0-44.0); MEAN CORPUSCULAR HEMOGLOBIN 30.8 pg (27.0-33.0); MEAN CORPUSCULAR HGB CONC 32.7 g/dl (32.0-36.5); MONO # 0.9 10^3/uL (0.0-0.8); NEUTROPHILS # 8.8 10^3/uL (1.5-8.5); NEUTROPHILS % 77.8 % (36.0-66.0); PLATELET COUNT, AUTOMATED 195 10^3/uL (150-450); RED BLOOD COUNT 3.51 10^6/uL (4.00-5.40); WHITE BLOOD COUNT 11.4 10^3/uL (4.0-10.0)
[2020-08-23] MEDS ORDERED: LABETALOL 100MG/20ML VIAL IV STA (14:07)
[2020-08-23] MEDS ORDERED: lisinopriL 40 MG TAB PO ONE (14:10)
[2020-08-23] MEDS ORDERED: **hydrALAZINE** 50 MG TAB PO ONE (14:10)
[2020-08-23 14:43] LABS: ALBUMIN 2.7 GM/DL (3.2-5.2); ALT/SGPT 51 U/L (12-78); BILIRUBIN,DIRECT < 0.1 MG/DL (0.0-0.2); BILIRUBIN,TOTAL 0.4 MG/DL (0.2-1.0); BLOOD UREA NITROGEN 43 MG/DL (7-18); CALCIUM LEVEL 8.3 MG/DL (8.8-10.2); CARBON DIOXIDE LEVEL 27 MEQ/L (21-32); CHLORIDE LEVEL 102 MEQ/L (98-107); CPK CREATINE PHOSPHOKINASE 88 U/L (26-192); CREATININE FOR GFR 0.99 MG/DL (0.55-1.30); GLOMERULAR FILTRATION RATE 58.4 (>39); GLUCOSE, FASTING 434 MG/DL (70-100); MB/CK RELATIVE INDEX 6.82 (< OR =4); NT-PRO BNP 5268 PG/ML (<125); POTASSIUM SERUM 4.7 MEQ/L (3.5-5.1); SODIUM LEVEL 135 MEQ/L (136-145); TOTAL PROTEIN 5.6 GM/DL (6.4-8.2); TROPONIN I 0.08 NG/ML (< 0.10)
[2020-08-23] MEDS ORDERED: HumuLIN R (REGULAR) INSULIN (NovoLIN R) **100U/ML** PER UNIT IV ONE (14:45)
[2020-08-23] MEDS ORDERED: ACET-910 PO (15:18)
[2020-08-23] MEDS ORDERED: IPRATROPIUM 0.5MG/ALBUTEROL 2.5MG INH SOL UD 3ML (DUONEB) NEB PRN (15:50)
[2020-08-23] MEDS ORDERED: ACETAMINOPHEN TAB 650MG DOSE (2X325MG) PO PRN (15:50)
[2020-08-23] MEDS: IPRATROPIUM 0.5MG/ALBUTEROL 2.5MG INH SOL UD 3ML (DUONEB) NEB SCH ×2 (16:00→20:00)
[2020-08-23] MEDS ORDERED: **hydrALAZINE HCL** 25 MG TAB PO PRN (17:25)
[2020-08-23] MEDS ORDERED: HumaLOG INSULIN (NovoLOG) PER UNIT SC SCH ×2 (17:30→21:00)
[2020-08-23] MEDS ORDERED: GLUCOSE 4GM CHEW TABLET PO PRN (17:50)
[2020-08-23] MEDS ORDERED: GLUCAGON INJ 1MG VIAL SC PRN (17:50)
[2020-08-23] MEDS ORDERED: DEXTROSE 50% 50 ML SYRINGE IV PRN (17:50)
--- NOTE | 2020-08-23 17:57 | HPEPDOC ---
General Date of Admission Aug 23, 2020 at 13:05 Date of Service: Aug 23, 2020 Chief Complaint The patient is a 74-year-old female admitted with a reason for visit of Copd,Hypertensive Urgency. Source: Patient, RN/MD History of Present Illness Mrs. Ponce is a 74 year old female with chronic hypoxic respiratory failure and nicotine use disorder who is here for dyspnea 2/2 COPD exacerbation and hypertensive urgency 2/2 noncompliance. Patient was recently admitted for rib fracture and E.coli UTI. She was discharged home on 08/22/20. She went home, smoked 3 cigarettes, and went to bed. In the morning, she was short of breath and couldn't breath. She did not try to use her inhalers or take any of her medications. She called 911 and was brought to the ED. She was found to have hypertensive urgency since she did not take her medications at home. Patient was started on home medications and blood pressure improved. Patient was also given breathing treatments and steroids and patient's breathing improved. Patient will be placed in observation for COPD exacerbation and hypertensive urgency. Home Medications Scheduled Alendronate Sodium (Alendronate Sodium) 70 Mg Tablet, 70 MG PO 1XWK, (Reported) Amlodipine Besylate (Amlodipine Besylate) 10 Mg Tablet, 10 MG PO DAILY, (Reported) Atorvastatin Calcium (Atorvastatin Calcium) 40 Mg Tablet, 40 MG PO QHS, (Reported) Clopidogrel Bisulfate (Plavix) 75 Mg Tablet, 75 MG PO DAILY, (Reported) Duloxetine HCl (Duloxetine HCl) 60 Mg Capsule.dr, 60 MG PO DAILY, (Reported) Fluticasone/Vilanterol (Breo Ellipta 200-25 Mcg INH) 1 Each Blst.w.dev, 1 PUFF INH DAILY, (Reported) Furosemide (Furosemide) 20 Mg Tablet, 20 MG PO DAILY, (Reported) Gabapentin (Gabapentin) 100 Mg Capsule, 100 MG PO DAILY, (Reported) Hydralazine HCl (Hydralazine HCl) 50 Mg Tablet, 50 MG PO BID, (Reported) Insulin Glargine,Hum.rec.anlog (Basaglar Kwikpen U-100) 100 Unit/1 Ml Insuln.pen, 25 UNIT SC DAILY, (Reported) Levothyroxine Sodium (Levothyroxine Sodium) 75 Mcg Tablet, 75 MCG PO DAILY, (Reported) Lisinopril (Lisinopril) 40 Mg Tablet, 40 MG PO DAILY, (Reported) Metformin HCl (Metformin HCl) 500 Mg Tablet, 500 MG PO BID, (Reported) Prednisone (Prednisone) 10 Mg Tablet, 5 MG PO BID, (Reported) Scheduled PRN Acetaminophen (Acetaminophen) 325 Mg Tablet, 650 MG PO Q4H PRN for PAIN LEVEL 1- 4, (Reported) Albuterol Sulfate (Albuterol Sulfate) 2.5 Mg/0.5 Ml Vial.neb, 1 VIAL NEB Q6H PRN for SOB/WHEEZING, (Reported) Albuterol Sulfate (Proair Hfa) 8.5 Gm Hfa.aer.ad, 2 PUFF INH QID PRN for SHORTNESS OF BREATH, (Reported) Hydrocodone/Acetaminophen (Hydrocodone-Acetamin 5-325 mg) 1 Each Tablet, 1 TAB PO Q6H PRN for P, (Reported) Hydroxyzine HCl (Hydroxyzine HCl) 10 Mg Tablet, 10 MG PO Q8H PRN for ANXIETY, ( Reported) Allergies Coded Allergies: Sulfa (Sulfonamide Antibiotics) (Verified Allergy, Mild, RASH, 07/14/20) bacitracin (Verified Allergy, Mild, RASH, 07/14/20) cortisone (Verified Allergy, Mild, RASH, 07/14/20) neomycin (Verified Allergy, Mild, RASH, 07/14/20) polymyxin B (Verified Allergy, Mild, RASH, 07/14/20) red dye (Unverified Allergy, Mild, rash OCCURRED ONCE WITH CAPSULE MED NO OTHER PROBLEMS WIT, 08/23/20) fluoxetine (Unverified Allergy, Unknown, 07/14/20) tramadol (Unverified Allergy, Unknown, 07/14/20) HAS HAD OXYCODONE BEFORE WITHOUT ISSUE Past Medical History Medical History 1. Chronic back pain 2. L4 compression 3. Spinal stenosis 4. Peripheral vascular disease s/p right LE angioplasty with stenting 5. CKD 3 6. Bladder cancer 7. Severe COPD/emphysema 8. Dyslipidemia 9. Insulin-dependent diabetes mellitus 10. Hypothyroidism 11. Hypertension 12. CHF 13. Right upper lobe lung mass 14. Anxiety/depression Surgical History 1. Hysterectomy 2. Vaginal tumor removal 3. Bilateral leg stents 4. Lung mass removed 5. Bilateral cataract surgery Family History Father: at 76 year old, history of cerebral artery occlusion with cerebral infarct Mother: at 77 year old, history of ID and DM Social History * Smoker: current smoker A-FIB/CHADSVASC A-FIB History Current/History of A-Fib/PAF?: No Review of Systems Constitutional: Denies: Chills, Fever Eyes: Denies: Vision change ENT: Denies: Sore Throat Skin: Denies: Rash Pulmonary: Reports: Dyspnea, Cough (Productive) Cardiovascular: Denies: Chest Pain Gastrointestinal: Denies: Abdominal Pain Hematologic: Reports: Bruising Neurological: Denies: Numbness Psych: Reports: Anxiety, Depression Physical Examination General Exam: Positive: Alert, Cooperative Eye Exam: Positive: EOMI; Negative: Sclera icteric ENT Exam: Positive: Atraumatic Neck Exam: Positive: Supple Chest Exam: Positive: Wheezing Heart Exam: Positive: Rate Normal, Regular Rhythm Abdomen Exam: Positive: Normal bowel sounds, Soft; Negative: Tenderness Extremity Exam: Negative: Edema Neuro Exam: Positive: Normal Speech, Cranial Nerves 3-12 NL Psych Exam: Positive: Mental status NL, Mood NL Vital Signs Vital Signs Date Time Temp Pulse Resp B/P (MAP) Pulse Ox O2 Delivery O2 Flow Rate FiO2 08/23/20 15:15 78 19 140/62 (88) 98 Nasal Cannula 2.0 Laboratory Data Labs 24H Laboratory Tests 2 08/23/20 13:17: Immature Granulocyte % (Auto) 1.0, Neutrophils (%) (Auto) 77.8H, Lymphocytes (%) (Auto) 10.6L, Monocytes (%) (Auto) 8.0, Eosinophils (%) (Auto) 2.0, Basophils (%) (Auto) 0.6, Neutrophils # (Auto) 8.8H, Lymphocytes # (Auto) 1.2L, Monocytes # (Auto) 0.9H, Eosinophils # (Auto) 0.2, Basophils # (Auto) 0.1, Nucleated Red Blood Cells % (auto) 0.0, Anion Gap 6L, Glomerular Filtration Rate 58.4, Calcium Level 8.3L, Total Bilirubin 0.4, Direct Bilirubin < 0.1, Aspartate Amino Transf (AST/SGOT) 35, Alanine Aminotransferase (ALT/SGPT) 51, Alkaline Phosphatase 146H, Total Creatine Kinase 88, Creatine Kinase MB 6.0H, Creatine Kinase MB Relative Index 6.82H, Troponin I 0.08, SJ-Sfp-A-Type Natriuretic Peptide 5268H, Total Protein 5.6L, Albumin 2.7L, Albumin/Globulin Ratio 0.9L, Thyroid Stimulating Hormone (TSH) 3.400 08/23/20 13:29: Blood Gas Bicarbonate Standard 25.9, Venous Blood pH 7.484H, Venous Blood Parti al Pressure CO2 33.5L, Venous Blood Partial Pressure O2 131.5H, Venous Blood Total Carbon Dioxide 25.6, Venous Blood HCO3 24.6, Venous Blood Oxygen Saturation 98.2H, Venous Blood Base Excess 1.6 CBC/BMP Laboratory Tests 08/23/20 13:17 Microbiology Microbiology 08/23/20 Respiratory Virus Panel (PCR) ([facility]) - Final, Complete Assessment/Plan Mrs. Pocne is a 74 year old female with chronic hypoxic respiratory failure and nicotine use disorder who is here for dyspnea 2/2 COPD exacerbation and hypertensive urgency 2/2 noncompliance. Patient's COPD exacerbation may be secondary to smoking and missing her evening dose of prednisone. Patient will be started on Solumedrol, duonebs scheduled and PRN, and antibiotics Plan / VTE VTE Prophylaxis Ordered?: Yes Plan Plan 1. COPD exacerbation -Secondary to smoking and non-compliance with her prednisone -Solumedrol, duonebs scheduled and as needed, IV antibiotics -Continue ICS/LABA -Ceftriaxone and doxycycline day 1 2. Hypertensive urgency -Non-compliance with antihypertensives -Continue with amlodipine, scheduled hydralazine, and lisinopril -PRN hydralazine for HR > 160 3. PVD -Continue with atorvastatin and clopidogrel 4. Anxiety/Depression -Continue dulexetine and PRN hydroxyzine 5. DM -Basal bolus insulin -Carbohydrate consistent diet 6. Hypothyroidism -Continue with levothyroxine 7. DVT ppx -Heparin Disposition: Pending improvement in respiratory status and blood pressure. COLTON LEIVA DO Aug 23, 2020 17:57
[2020-08-23] MEDS: NORCO, ANEXSIA 5/325MG TABLET (HYDROcodone/ACETAMINOPHEN) PO PRN (19:26)
[2020-08-23] MEDS: methylPREDNISolone 125MG 2ML VIAL IV SCH (19:26)
[2020-08-23] MEDS: ADVAIR HFA 115/21MCG INHALER INH SCH (20:00)
[2020-08-23 20:05] VITALS: BP 147/67
[2020-08-23 20:10] LABS: VENOUS BASE EXCESS -0.3 (-2.0-2.0); VENOUS HCO3 24.2 MEQ/L (23.0-27.0); VENOUS O2 SATURATION 98.8 % (60.0-80.0); VENOUS PARTIAL PRESSURE O2 197.4 mmHg (30.0-50.0); VENOUS STANDARD HCO3 24.2 MEQ/L; VENOUS TOTAL CO2 25.4 MEQ/L (24.0-28.0)
[2020-08-23] MEDS: ATORVASTATIN 20 MG TAB PO SCH (20:40)
[2020-08-23] MEDS: cefTRIAXone SOD 1 GM in D5W MINI-BAG PLUS 50 ML IV SCH (20:41)
[2020-08-23] MEDS: HEPARIN SOD (PORCINE) 5000UNITS/ML 1ML VIAL/SYRINGE SQ SCH (20:41)
[2020-08-23] MEDS: **hydrALAZINE** 50 MG TAB PO SCH (20:41)
[2020-08-23 20:45] LABS: ACETONE/KETONE 2.22 MG/DL (<2.81); CALCIUM LEVEL 8.3 MG/DL (8.8-10.2); CREATININE FOR GFR 1.47 MG/DL (0.55-1.30); POTASSIUM SERUM 4.8 MEQ/L (3.5-5.1)
[2020-08-23] MEDS ORDERED: HumaLOG INSULIN (NovoLOG) PER UNIT SC STA ×2 (20:50→22:11)
--- NOTE | 2020-08-23 20:52 | ECGEPIP ---
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
[2020-08-23] MEDS: DOXYCYCLINE HYCLATE 100 MG in D5W MINI-BAG PLUS 100 ML IV SCH (22:21)
[2020-08-23] MEDS: NICOTINE 21MG/24HR 1 EA TRANSDERMAL TD SCH (22:33)
[2020-08-23] MEDS ORDERED: HumaLOG INSULIN (NovoLOG) PER UNIT SC ONE (23:25)
[2020-08-23] MEDS: hydrOXYzine 10 MG TAB PO PRN (23:30)
[2020-08-23] MEDS: HumaLOG INSULIN (NovoLOG) PER UNIT SC SCH (23:32)
[2020-08-24] MEDS: HumaLOG INSULIN (NovoLOG) PER UNIT SC SCH ×6 (00:49→23:31)
[2020-08-24 01:06] LABS: APPEARANCE, URINE HAZY (CLEAR); BACTERIA, URINE AUTO NEGATIVE (NEGATIVE); BILIRUBIN, URINE AUTO NEGATIVE (NEGATIVE); BLOOD, URINE BLOOD NEGATIVE (NEGATIVE); COLOR, URINE YELLOW (YELLOW); GLUCOSE, URINE (UA) AUTO 3+ mg/dL (NEGATIVE); KETONE, URINE AUTO NEGATIVE (NEGATIVE); LEUKOCYTE ESTERASE, URINE AUTO NEGATIVE (NEGATIVE); MUCUS, URINE SMALL (NEGATIVE); NITRITE, URINE AUTO NEGATIVE (NEGATIVE); PROTEIN, URINE AUTO 3+ mg/dL (NEGATIVE); RBC, URINE AUTO 2 /HPF (0-3); SPECIFIC GRAVITY URINE AUTO 1.017 (1.002-1.035); SQUAMOUS EPITHELIAL CELL UR AU 1 /HPF (0-6); UROBILINOGEN, URINE AUTO 0.2 mg/dL (0.0-2.0); WBC, URINE AUTO 1 /HPF (0-3)
[2020-08-24] MEDS: LEVOTHYROXINE 75MCG TABLET (0.075MG) PO SCH (06:19)
[2020-08-24] MEDS: methylPREDNISolone 125MG 2ML VIAL IV SCH (06:19)
[2020-08-24] MEDS: NORCO, ANEXSIA 5/325MG TABLET (HYDROcodone/ACETAMINOPHEN) PO PRN ×2 (06:19→20:22)
[2020-08-24 06:21] VITALS: BP 148/72
[2020-08-24 06:50] LABS: HEMATOCRIT 31.2 % (36.0-47.0); HEMOGLOBIN 10.4 g/dl (12.0-15.5); MEAN CORPUSCULAR HEMOGLOBIN 30.8 pg (27.0-33.0); MEAN CORPUSCULAR HGB CONC 33.3 g/dl (32.0-36.5); MEAN CORPUSCULAR VOLUME 92.3 fl (80.0-96.0); PLATELET COUNT, AUTOMATED 210 10^3/uL (150-450); RED BLOOD COUNT 3.38 10^6/uL (4.00-5.40); WHITE BLOOD COUNT 14.5 10^3/uL (4.0-10.0)
[2020-08-24 07:09] LABS: CALCIUM LEVEL 9.3 MG/DL (8.8-10.2); CREATININE FOR GFR 1.1 MG/DL (0.55-1.30); GLOMERULAR FILTRATION RATE 51.7 (>39); POTASSIUM SERUM 4.6 MEQ/L (3.5-5.1)
[2020-08-24] MEDS: IPRATROPIUM 0.5MG/ALBUTEROL 2.5MG INH SOL UD 3ML (DUONEB) NEB SCH ×6 (07:19→23:06)
[2020-08-24] MEDS: ADVAIR HFA 115/21MCG INHALER INH SCH ×2 (07:19→19:46)
[2020-08-24] MEDS: LEVEMIR (INSULIN DETEMIR) 1 UNITS/0.01ML SC SCH (09:00)
[2020-08-24] MEDS: DOXYCYCLINE HYCLATE 100 MG in D5W MINI-BAG PLUS 100 ML IV SCH ×2 (09:49→21:28)
[2020-08-24] MEDS: NICOTINE 21MG/24HR 1 EA TRANSDERMAL TD SCH (09:50)
[2020-08-24] MEDS: DULoxetine 30 MG CAP (CYMBALTA) PO SCH (09:51)
[2020-08-24] MEDS: HEPARIN SOD (PORCINE) 5000UNITS/ML 1ML VIAL/SYRINGE SQ SCH ×2 (09:51→20:23)
[2020-08-24] MEDS: GABAPENTIN 100 MG CAP PO SCH (09:51)
[2020-08-24] MEDS: FUROSEMIDE 20 MG TAB PO SCH (09:51)
[2020-08-24] MEDS: CLOPIDOGREL 75 MG TAB PO SCH (09:51)
[2020-08-24] MEDS: **hydrALAZINE** 50 MG TAB PO SCH ×2 (09:53→20:22)
[2020-08-24] MEDS: lisinopriL 40 MG TAB PO SCH (09:53)
[2020-08-24 09:55] VITALS: BP 147/71
[2020-08-24] MEDS ORDERED: NICO1DIS11 TD (09:58)
[2020-08-24] MEDS ORDERED: LEVEMIR (INSULIN DETEMIR) 1 UNITS/0.01ML SC STA (10:10)
[2020-08-24] MEDS ORDERED: DOXY-350 PO (10:15)
[2020-08-24] MEDS ORDERED: PRED10TA2 PO (10:15)
[2020-08-24] MEDS ORDERED: CEFD1CAP8 PO (10:15)
[2020-08-24] MEDS ORDERED: HumaLOG INSULIN (NovoLOG) PER UNIT SC STA ×2 (13:13→17:50)
[2020-08-24 14:00] VITALS: BP 127/75
[2020-08-24] MEDS: hydrOXYzine 10 MG TAB PO PRN (16:39)
--- NOTE | 2020-08-24 17:47 | IPNPDOC ---
Subjective Date Seen The patient was seen on 08/24/20. Subjective Chief Complaint/HPI Mrs. Ponce is a 74 year old female with chronic hypoxic respiratory failure and nicotine use disorder who is here for dyspnea 2/2 COPD exacerbation and hypertensive urgency 2/2 noncompliance. This morning, she was feeling better. Denies chest pain and dyspnea improved. Throughout the day, her blood glucose has been variable. She has not been compliant with consistent carb diet. She had regular Jello and Ensure (instead of Glucerna). Otherwise, she wanted to go home. She initially was able to ambulate without oxygen, but she tried ambulat ing a second time and became winded and hypoxic. Will keep patient tonight. Objective Physical Examination General Exam: Positive: Alert, Cooperative Eye Exam: Positive: EOMI; Negative: Sclera icteric ENT Exam: Positive: Atraumatic Neck Exam: Positive: Supple Chest Exam: Positive: Diminished Heart Exam: Positive: Rate Normal, Regular Rhythm Abdomen Exam: Positive: Normal bowel sounds, Soft; Negative: Tenderness Extremity Exam: Negative: Edema Neuro Exam: Positive: Normal Speech, Cranial Nerves 3-12 NL Psych Exam: Positive: Mental status NL, Mood NL Assessment /Plan Assessment Mrs. Ponce is a 74 year old female with chronic hypoxic respiratory failure and nicotine use disorder who is here for dyspnea 2/2 COPD exacerbation and hypertensive urgency 2/2 noncompliance. Patient's COPD exacerbation may be seco ndary to smoking and missing her evening dose of prednisone. Patient will be put on steroids, duonebs scheduled and PRN, and antibiotics Plan/VTE VTE Prophylaxis Ordered?: Yes Plan 1. COPD exacerbation -Secondary to smoking and non-compliance with her prednisone -Solumedrol, duonebs scheduled and as needed, IV antibiotics -Continue ICS/LABA -Ceftriaxone and doxycycline day 2 2. Hypertensive urgency -Non-compliance with antihypertensives -Continue with amlodipine, scheduled hydralazine, and lisinopril -PRN hydralazine for HR > 160 3. PVD -Continue with atorvastatin and clopidogrel 4. Anxiety/Depression -Continue dulexetine and PRN hydroxyzine 5. DM -Basal bolus insulin -Carbohydrate consistent diet 6. Hypothyroidism -Continue with levothyroxine 7. DVT ppx -Heparin Disposition: Pending clinical improvement. Anticipate possible discharge tomorrow. Discharge planning difficult as both home health services have turned her down due to non-compliance. Discussed smoking cessation with patient. Will try with nicotine patch. Otherwise, discussed importance of insulin and avoiding foods high with sugar such as sweets. VS, I&O, 24H, Fishbone Vital Signs/I&O Vital Signs Date Time Temp Pulse Resp B/P (MAP) Pulse Ox O2 Delivery O2 Flow Rate FiO2 08/24/20 14:00 98.2 101 22 127/75 (92) 98 Room Air 2.0 I&O- Last 24 Hours up to 6 AM 08/24/20 06:00 Intake Total 600 ml Output Total 100 ml Balance 500 ml Laboratory Data 24H LABS Laboratory Tests 2 08/23/20 19:31: Bedside Glucose (Misc Panel) > 600*H 08/23/20 19:58: Blood Gas Bicarbonate Standard 24.2, Venous Blood pH 7.410, Venous Blood Partial Pressure CO2 39.0, Venous Blood Partial Pressure O2 197.4H, Venous Blood Total Carbon Dioxide 25.4, Venous Blood HCO3 24.2, Venous Blood Oxygen Saturation 9 8.8H, Venous Blood Base Excess -0.3, Anion Gap 7L, Glomerular Filtration Rate 37.0L, Calcium Level 8.3L, B-Hydroxybutyrate 2.22 08/23/20 22:04: Bedside Glucose (Misc Panel) > 600*H 08/23/20 22:19: Bedside Glucose Confirm (Misc) 601*H 08/23/20 23:07: Bedside Glucose (Misc Panel) 497H 08/24/20 00:36: Bedside Glucose (Misc Panel) 332H 08/24/20 00:51: Urine Color YELLOW, Urine Appearance HAZY, Urine pH 5.0, Urine Specific [place] 1.017, Urine Protein 3+H, Urine Glucose (Auto)(UA) 3+H, Urine Ketones (Auto) NEGATIVE, Urine Blood NEGATIVE, Urine Nitrite NEGATIVE, Urine Bilirubin NEGATIVE, Urine Urobilinogen 0.2, Urine Leukocyte Esterase (Auto) NEGATIVE, Urine WBC (Auto) 1, Urine RBC (Auto) 2, Urine Hyaline Casts (Auto) 0, Urine Bacteria (Auto) NEGATIVE, Urine Squamous Epithelial Cells 1, Urine Mucus (Auto) SMALL, Urine Sperm (Auto) 08/24/20 06:11: Bedside Glucose (Misc Panel) 45L 08/24/20 06:24: Nucleated Red Blood Cells % (auto) 0.0, Bedside Glucose Confirm (Misc) 50, Anion Gap 8, Glomerular Filtration Rate 51.7, Calcium Level 9.3, Procalcitonin 0.06 08/24/20 06:53: Bedside Glucose (Misc Panel) 128H 08/24/20 10:04: Bedside Glucose (Misc Panel) 407H 08/24/20 11:56: Bedside Glucose (Misc Panel) 504*H 08/24/20 12:27: Bedside Glucose Confirm (Misc) 578*H 08/24/20 17:31: Bedside Glucose (Misc Panel) 487H CBC/BMP Laboratory Tests 08/23/20 19:58 08/24/20 06:24 Microbiology Microbiology 08/23/20 Respiratory Virus Panel (PCR) ([facility]) - Final, Complete COLTON LEIVA DO Aug 24, 2020 17:47
[2020-08-24] MEDS: cefTRIAXone SOD 1 GM in D5W MINI-BAG PLUS 50 ML IV SCH (20:18)
[2020-08-24 20:20] VITALS: BP 121/59
[2020-08-24] MEDS: ATORVASTATIN 20 MG TAB PO SCH (20:22)
[2020-08-25] MEDS: HumaLOG INSULIN (NovoLOG) PER UNIT SC SCH ×3 (04:00→12:00)
[2020-08-25] MEDS: IPRATROPIUM 0.5MG/ALBUTEROL 2.5MG INH SOL UD 3ML (DUONEB) NEB SCH ×3 (04:53→11:07)
[2020-08-25 05:51] LABS: HEMATOCRIT 28.6 % (36.0-47.0); HEMOGLOBIN 9.6 g/dl (12.0-15.5); MEAN CORPUSCULAR HEMOGLOBIN 31.2 pg (27.0-33.0); MEAN CORPUSCULAR HGB CONC 33.6 g/dl (32.0-36.5); MEAN CORPUSCULAR VOLUME 92.9 fl (80.0-96.0); PLATELET COUNT, AUTOMATED 175 10^3/uL (150-450); RED BLOOD COUNT 3.08 10^6/uL (4.00-5.40); WHITE BLOOD COUNT 13.8 10^3/uL (4.0-10.0)
[2020-08-25 06:00] VITALS: BP 127/75
[2020-08-25] MEDS: LEVOTHYROXINE 75MCG TABLET (0.075MG) PO SCH (06:11)
[2020-08-25] MEDS: NORCO, ANEXSIA 5/325MG TABLET (HYDROcodone/ACETAMINOPHEN) PO PRN (06:12)
[2020-08-25 06:20] LABS: CALCIUM LEVEL 8.6 MG/DL (8.8-10.2); CREATININE FOR GFR 1.16 MG/DL (0.55-1.30); GLOMERULAR FILTRATION RATE 48.6 (>39); POTASSIUM SERUM 4.2 MEQ/L (3.5-5.1)
[2020-08-25] MEDS: ADVAIR HFA 115/21MCG INHALER INH SCH (07:15)
[2020-08-25] MEDS: HEPARIN SOD (PORCINE) 5000UNITS/ML 1ML VIAL/SYRINGE SQ SCH (08:48)
[2020-08-25] MEDS: LEVEMIR (INSULIN DETEMIR) 1 UNITS/0.01ML SC SCH (08:48)
[2020-08-25] MEDS: lisinopriL 40 MG TAB PO SCH (08:48)
[2020-08-25] MEDS: DULoxetine 30 MG CAP (CYMBALTA) PO SCH (08:49)
[2020-08-25] MEDS: FUROSEMIDE 20 MG TAB PO SCH (08:50)
[2020-08-25 08:51] VITALS: BP 124/72
[2020-08-25] MEDS: **hydrALAZINE** 50 MG TAB PO SCH (08:51)
[2020-08-25] MEDS: CLOPIDOGREL 75 MG TAB PO SCH (08:51)
[2020-08-25] MEDS: GABAPENTIN 100 MG CAP PO SCH (08:51)
[2020-08-25] MEDS: NICOTINE 21MG/24HR 1 EA TRANSDERMAL TD SCH (08:52)
[2020-08-25] MEDS ORDERED: predniSONE 20 MG TAB PO SCH (09:00)
[2020-08-25] MEDS ORDERED: DOXYCYCLINE HYCLATE 100MG TABLET PO SCH (09:00)
[2020-08-25] MEDS ORDERED: INSUDET SC (12:35)
[2020-08-25] MEDS ORDERED: BASA100I SC (13:17)
--- NOTE | 2020-08-25 20:55 | DS.PDOC ---
Discharge Summary General Date of Admission Aug 23, 2020 at 13:05 Date of Discharge Aug 25, 2020 Discharge Summary PROCEDURES PERFORMED DURING STAY: None ADMITTING DIAGNOSES: 1. COPD exacerbation 2. Hypertensive urgency 3. PVD 4. Anxiety/Depression 5. DM 6. Hypothyroidism DISCHARGE DIAGNOSES: 1. COPD exacerbation 2. Hypertensive urgency 3. PVD 4. Anxiety/Depression 5. DM 6. Hypothyroidism COMPLICATIONS/CHIEF COMPLAINT: Copd,Hypertensive Urgency. HISTORY OF PRESENT ILLNESS: Mrs. Ponce is a 74 year old female with chronic hypoxic respiratory failure and nicotine use disorder who is here for dyspnea 2/2 COPD exacerbation and hypertensive urgency 2/2 noncompliance. Patient was recently admitted for rib fracture and E.coli UTI. She was discharged home on 08/22/20. She went home, smoked 3 cigarettes, and went to bed. In the morning, she was short of breath and couldn't breath. She did not try to use her inhalers or take any of her medications. She called 911 and was brought to the ED. She was found to have hypertensive urgency since she did not take her medications at home. Patient was started on home medications and blood pressure improved. Patient was also given breathing treatments and steroids and patient's breathing improved. Patient will be placed in observation for COPD exacerbation and hypertensive urgency. HOSPITAL COURSE: The following day, her breathing was better, and she was asking to go home. I discussed the case with PFS as patient had been readmitted quickly. Patient has been refused by both home care agencies due to her non- compliance. Patient did not want to go to rehab or senior living. She just wanted to go home. Yesterday afternoon, she was able to ambulate without oxygen. A little later, she required oxygen to recover. Otherwise, her glucose was difficult to control and she become hypoglycemic. She was found to have regular Jello and Ensure instead of Glucerna. Instructed patient to start picking foods that are sugar free and avoiding carbohydrate. I reduced her Basaglar from 25u qD to 20u qD. Today, patient denies chest pain or dyspnea. She feels ready for home and was discharged home. DISCHARGE MEDICATIONS: Please see below. ALLERGIES: Please see below. PHYSICAL EXAMINATION ON DISCHARGE: VITAL SIGNS: Please see below. GENERAL: Comfortable, in no apparent distress HEENT: Head normocephalic, atraumatic NECK: Supple CARDIOVASCULAR EXAMINATION: Regular rate and rhythm RESPIRATORY EXAMINATION: Lungs clear to auscultation bilaterally ABDOMINAL EXAMINATION: Soft, non-tender, normal bowel sounds EXTREMITIES: No pitting edema bilaterally SKIN: Warm and dry NEUROLOGICAL EXAMINATION: CN 3-12 grossly intact PSYCHIATRIC EXAMINATION: Anxious LABORATORY DATA: Please see below. IMAGING: Radiologist interpretation CXR Platelike atelectasis right base. Infiltrate pleural thickening and atelectasis right upper lobe distribution unchanged. Right lateral rib fracture.. PROGNOSIS: Good ACTIVITY: As tolerated. DIET: Carbohydrate consistent diet DISCHARGE PLAN: Home DISPOSITION: Home, Self-Care. DISCHARGE INSTRUCTIONS: 1. PCP within 1 week 2. Take steroid taper to completion and continue prednisone 5mg BID afterwards 3. Take antibiotic to completion 4. Take nicotine patch and try to stop smoking ITEMS TO FOLLOWUP ON ON OUTPATIENT: 1. Diabetes management DISCHARGE CONDITION: Stable. Total time spent on discharge planning, discharge summary, and medication reconciliation: 55 minutes Vital Signs/I&Os Vital Signs Date Time Temp Pulse Resp B/P (MAP) Pulse Ox O2 Delivery O2 Flow Rate FiO2 08/25/20 10:45 95 Room Air 08/25/20 08:51 124/72 08/25/20 08:50 2.0 08/25/20 08:50 104 08/25/20 06:42 18 08/25/20 06:00 97.4 I&O- Last 24 Hours up to 6 AM 08/25/20 06:00 Intake Total 1578 ml Output Total 1400 ml Balance 178 ml Laboratory Data Labs 24H Laboratory Tests 2 08/24/20 23:25: Bedside Glucose (Misc Panel) 230H 08/25/20 03:47: Bedside Glucose (Misc Panel) 52L 08/25/20 04:41: Bedside Glucose (Misc Panel) 142H 08/25/20 05:32: Nucleated Red Blood Cells % (auto) 0.0, Anion Gap 6L, Glomerular Filtration Rate 48.6, Calcium Level 8.6L 08/25/20 08:34: Bedside Glucose (Misc Panel) 226H 08/25/20 12:00: Bedside Glucose (Misc Panel) 35*L 08/25/20 12:42: Bedside Glucose (Misc Panel) 112H CBC/BMP Laboratory Tests 08/25/20 05:32 FSBS Laboratory Tests Test 08/24/20 23:25 08/25/20 03:47 08/25/20 04:41 08/25/20 08:34 Range/Units Bedside Glucose (Misc Panel) 230 52 142 226 83-110 MG/DL Test 08/25/20 12:00 08/25/20 12:42 Range/Units Bedside Glucose (Misc Panel) 35 112 83-110 MG/DL Microbiology Microbiology 08/23/20 Respiratory Virus Panel (PCR) (SANDRA) - Final, Complete Discharge Medications Scheduled Alendronate Sodium (Alendronate Sodium) 70 Mg Tablet, 70 MG PO 1XWK, (Reported) Amlodipine Besylate (Amlodipine Besylate) 10 Mg Tablet, 10 MG PO DAILY, (Reported) Atorvastatin Calcium (Atorvastatin Calcium) 40 Mg Tablet, 40 MG PO QHS, (Reported) Cefdinir (Cefdinir) 300 Mg Capsule, 300 MG PO BID Clopidogrel Bisulfate (Plavix) 75 Mg Tablet, 75 MG PO DAILY, (Reported) Doxycycline Monohydrate (Doxycycline) 100 Mg Capsule, 100 MG PO BID Duloxetine HCl (Duloxetine HCl) 60 Mg Capsule.dr, 60 MG PO DAILY, (Reported) Fluticasone/Vilanterol (Breo Ellipta 200-25 Mcg INH) 1 Each Blst.w.dev, 1 PUFF INH DAILY, (Reported) Furosemide (Furosemide) 20 Mg Tablet, 20 MG PO DAILY, (Reported) Gabapentin (Gabapentin) 100 Mg Capsule, 100 MG PO DAILY, (Reported) Hydralazine HCl (Hydralazine HCl) 50 Mg Tablet, 50 MG PO BID, (Reported) Insulin Glargine,Hum.rec.anlog (Basaglar Kwikpen U-100) 100 Unit/1 Ml Insuln.pen, 20 UNIT SC DAILY Levothyroxine Sodium (Levothyroxine Sodium) 75 Mcg Tablet, 75 MCG PO DAILY, (Reported) Lisinopril (Lisinopril) 40 Mg Tablet, 40 MG PO DAILY, (Reported) Metformin HCl (Metformin HCl) 500 Mg Tablet, 500 MG PO BID, (Reported) Nicotine (Nicotine Patch) 21 Mg/24 Hr Patch.td24, 21 MG TD DAILY Prednisone (Prednisone) 10 Mg Tablet, 5 MG PO BID, (Reported) Prednisone (Prednisone) 10 Mg Tablet, 10 MG PO TAPER Take 4 tabs daily x 3 days, then 3 tabs daily x 3 days, then 2 tabs daily x 3 days, then 1 tab daily x 3 days and stop Scheduled PRN Acetaminophen (Acetaminophen) 325 Mg Tablet, 650 MG PO Q4H PRN for PAIN LEVEL 1- 4, (Reported) Albuterol Sulfate (Albuterol Sulfate) 2.5 Mg/0.5 Ml Vial.neb, 1 VIAL NEB Q6H PRN for SOB/WHEEZING, (Reported) Albuterol Sulfate (Proair Hfa) 8.5 Gm Hfa.aer.ad, 2 PUFF INH QID PRN for SHORTNESS OF BREATH, (Reported) Hydrocodone/Acetaminophen (Hydrocodone-Acetamin 5-325 mg) 1 Each Tablet, 1 TAB PO Q6H PRN for P, (Reported) Hydroxyzine HCl (Hydroxyzine HCl) 10 Mg Tablet, 10 MG PO Q8H PRN for ANXIETY, (Reported) Allergies Coded Allergies: Sulfa (Sulfonamide Antibiotics) (Verified Allergy, Mild, RASH, 07/14/20) bacitracin (Verified Allergy, Mild, RASH, 07/14/20) cortisone (Verified Allergy, Mild, RASH, 07/14/20) neomycin (Verified Allergy, Mild, RASH, 07/14/20) polymyxin B (Verified Allergy, Mild, RASH, 07/14/20) red dye (Unverified Allergy, Mild, rash OCCURRED ONCE WITH CAPSULE MED NO OTHER PROBLEMS WIT, 08/23/20) fluoxetine (Unverified Allergy, Unknown, 07/14/20) tramadol (Unverified Allergy, Unknown, 07/14/20) HAS HAD OXYCODONE BEFORE WITHOUT ISSUE COLTON LEIVA DO Aug 25, 2020 20:51
[2020-08-26] MEDS ORDERED: LEVEMIR (INSULIN DETEMIR) 1 UNITS/0.01ML SC SCH (09:00)
== END 2020-08-25 14:59 | disposition home or self-care (01) ==
LOC: EDBD 13:04 → M ED 13:04 → M ED INP 13:05 → M MSPAV 20:08
PROVIDERS: ADMIT Internal Medicine; ATTEND Internal Medicine
DX: J44.1 Chronic obstructive pulmonary disease with (acute) exacerbation (principal); I16.0 Hypertensive urgency; Z91.19 Patient's noncompliance with other medical treatment and regimen; I73.9 Peripheral vascular disease, unspecified; F41.9 Anxiety disorder, unspecified; F32.9 Major depressive disorder, single episode, unspecified; E11.51 Type 2 diabetes mellitus with diabetic peripheral angiopathy without gangrene; E03.9 Hypothyroidism, unspecified; J96.11 Chronic respiratory failure with hypoxia; F17.210 Nicotine dependence, cigarettes, uncomplicated; Z79.899 Other long term (current) drug therapy; Z79.2 Long term (current) use of antibiotics; Z79.02 Long term (current) use of antithrombotics/antiplatelets; Z79.84 Long term (current) use of oral hypoglycemic drugs; Z79.52 Long term (current) use of systemic steroids; Z88.2 Allergy status to sulfonamides; Z88.1 Allergy status to other antibiotic agents; Z88.8 Allergy status to other drugs, medicaments and biological substances; Z88.5 Allergy status to narcotic agent
CPT/HCPCS: 36415; 71045; 80048; 80076; 81001; 82010; 82550; 82553; 82803; 83880; 84145; 84443; 84484; 85025; 85027; 87798; 93005; 93041; 94640; 96365; 96366; 96367; 96372; 96375; 96376; 97161; 99285; G0378; J0696; J1644; J2930; J7512

== ENCOUNTER 2020-08-27 08:33 | Inpatient (IN) | payer MEDICARE ==
[~2020-08-27] VITALS: Ht 157.5 cm; Wt 54.1 kg
[~2020-08-27 08:33] MED LIST changes: +ACET-910 PO; +CEFD1CAP8 PO; +DOXY-350 PO; +INSUDET SC; +NICO1DIS11 TD
[2020-08-27 10:30] LABS: HEMATOCRIT 35.4 % (36.0-47.0); HEMOGLOBIN 11.5 g/dl (12.0-15.5); MEAN CORPUSCULAR HEMOGLOBIN 30.7 pg (27.0-33.0); MEAN CORPUSCULAR HGB CONC 32.5 g/dl (32.0-36.5); MEAN CORPUSCULAR VOLUME 94.7 fl (80.0-96.0); PLATELET COUNT, AUTOMATED 215 10^3/uL (150-450); RED BLOOD COUNT 3.74 10^6/uL (4.00-5.40)
--- NOTE | 2020-08-27 10:45 | REP ---
INDICATION: copd. COMPARISON: AP 08/23/2020, CT 08/17/2020; AP 08/17/2020, 08/16/2020, 08/13/2020. TECHNIQUE: AP portable upright FINDINGS: Lungs are hyperinflated with changes of COPD and fibrosis there are heavier fibrotic changes in the periphery of the right upper lobe with focal of pleural thickening/scarring in the right upper lobe as before. There is no evidence of pneumothorax, pleural effusion, pneumomediastinum or acute left lung findings. The right lateral 8th rib fracture is less well seen on this study but there is some adjacent to the pleural thickening at that site. There is an arrow on the image for location. I do not see dense consolidation with air bronchograms. Pattern of fibrotic changes is stable. Cardiomediastinal silhouette is not enlarged. There is a tortuous, ectatic and calcified aorta which appears stable, without gross aneurysm. Some pulmonary artery hypertension noted, likely on the basis of COPD. Bones appear demineralized with some degenerative changes in the spine and shoulders. IMPRESSION: 1. Advanced COPD with chronic fibrotic changes of pleural thickening laterally in the right mid and upper lung zone as before. I do not see pneumothorax or pleural effusion. No new or acute infiltrate evident. There is some lateral pleural thickening in the right lateral base adjacent to the right lateral 8th rib fracture seen previously. 2. No cardiomegaly, edema or other acute finding. <Electronically signed by Darvin Monroe > 08/27/20 104
[2020-08-27 11:21] LABS: BLOOD UREA NITROGEN 39 MG/DL (7-18); CALCIUM LEVEL 8.8 MG/DL (8.8-10.2); CARBON DIOXIDE LEVEL 28 MEQ/L (21-32); CHLORIDE LEVEL 109 MEQ/L (98-107); CREATININE FOR GFR 0.96 MG/DL (0.55-1.30); GLOMERULAR FILTRATION RATE > 60.0 (>39); GLUCOSE, FASTING 40 MG/DL (70-100); POTASSIUM SERUM 4.3 MEQ/L (3.5-5.1); SODIUM LEVEL 144 MEQ/L (136-145)
[2020-08-27] MEDS ORDERED: DEXTROSE 50% 50 ML SYRINGE IV STA (11:42)
[2020-08-27] MEDS ORDERED: GLUCOSE 4GM CHEW TABLET PO PRN (12:25)
[2020-08-27] MEDS ORDERED: GLUCAGON INJ 1MG VIAL SC PRN (12:25)
[2020-08-27] MEDS ORDERED: DEXTROSE 50% 50 ML SYRINGE IV PRN (12:25)
[2020-08-27 13:03] LABS: RSV AMPLIFICATION NEGATIVE (NEGATIVE)
[2020-08-27] MEDS ORDERED: PRED10TA2 PO (13:15)
[2020-08-27] MEDS ORDERED: CEFD1CAP8 PO (13:15)
[2020-08-27] MEDS ORDERED: BASA100I SC (13:15)
[2020-08-27] MEDS ORDERED: DOXY1CAP62 PO (13:15)
[2020-08-27] MEDS ORDERED: IPRATROPIUM 0.5MG/ALBUTEROL 2.5MG INH SOL UD 3ML (DUONEB) NEB PRN (13:30)
--- NOTE | 2020-08-27 13:40 | HPEPDOC ---
General Date of Admission Aug 27, 2920 Date of Service: Aug 27, 2020 Chief Complaint The patient is a 74-year-old female admitted with a reason for visit of hypoglycemia, weakness, and failure to thrive Source: Patient History of Present Illness Mrs. Ponce is a 74 year old female with COPD, insulin dependent diabetes mellitus, and history of medical non-compliance who is here for hypoglycemia, weakness, and failure to thrive. She was recently here from Aug 12 to for hypoglycemia, Aug 17 to for rib fracture, and Aug 23 to for COPD and hypertensive urgency for medical non-compliance. After her discharge on August 25, she went home and she could not afford her medications. She did not have insulin at home. She was able to obtain nicotine patches, but did not use them and continued to smoke. She felt weak and could not cook or make food. Today, she was very anxious and called EMS because her diabetes was out of control. She could not afford test strips to check her insulin. Her blood glucose was low and she was given orange juice. In the ED, her glucose was 40. Otherwise, she is not in COPD exacerbation and her blood pressure is elevated from non-compliance to medication. Patient reports feeling cold. Her cough, sputum production, and dyspnea are at baseline. Denies chest pain, abdominal pain, or dysuria. Patient will be placed in observation for hypoglycemia, weakness, and failure to thrive. Home Medications Scheduled Amlodipine Besylate (Amlodipine Besylate) 10 Mg Tablet, 10 MG PO DAILY, (Reported) Atorvastatin Calcium (Atorvastatin Calcium) 40 Mg Tablet, 40 MG PO QHS, (Reported) Cefdinir (Cefdinir) 300 Mg Capsule, 300 MG PO BID, (Reported) Clopidogrel Bisulfate (Plavix) 75 Mg Tablet, 75 MG PO DAILY, (Reported) Doxycycline Monohydrate (Doxycycline Monohydrate) 100 Mg Capsule, 100 MG PO BID, (Reported) Duloxetine HCl (Duloxetine HCl) 60 Mg Capsule.dr, 60 MG PO DAILY, (Reported) Fluticasone/Vilanterol (Breo Ellipta 200-25 Mcg INH) 1 Each Blst.w.dev, 1 PUFF INH DAILY, (Reported) Gabapentin (Gabapentin) 100 Mg Capsule, 100 MG PO DAILY, (Reported) Hydralazine HCl (Hydralazine HCl) 50 Mg Tablet, 50 MG PO BID, (Reported) Insulin Glargine,Hum.rec.anlog (Basaglar Debbieikpen U-100) 100 Unit/1 Ml Insul n.pen, 20 UNIT SC DAILY, (Reported) Levothyroxine Sodium (Levothyroxine Sodium) 75 Mcg Tablet, 75 MCG PO DAILY, (Reported) Lisinopril (Lisinopril) 40 Mg Tablet, 40 MG PO DAILY, (Reported) Metformin HCl (Metformin HCl) 500 Mg Tablet, 500 MG PO BID, (Reported) Prednisone (Prednisone) 10 Mg Tablet, 10 MG PO TAPER, (Reported) Take 4 tabs daily x 3 days, then 3 tabs daily x 3 days, then 2 tabs daily x 3 days, then 1 tab daily x 3 days and stop Scheduled PRN Hydroxyzine HCl (Hydroxyzine HCl) 10 Mg Tablet, 10 MG PO Q8H PRN for ANXIETY, (Reported) Allergies Coded Allergies: Sulfa (Sulfonamide Antibiotics) (Verified Allergy, Mild, RASH, 07/14/20) bacitracin (Verified Allergy, Mild, RASH, 07/14/20) cortisone (Verified Allergy, Mild, RASH, 07/14/20) neomycin (Verified Allergy, Mild, RASH, 07/14/20) polymyxin B (Verified Allergy, Mild, RASH, 07/14/20) red dye (Unverified Allergy, Mild, rash OCCURRED ONCE WITH CAPSULE MED NO OTHER PROBLEMS WIT, 08/23/20) fluoxetine (Unverified Allergy, Unknown, 07/14/20) tramadol (Unverified Allergy, Unknown, 07/14/20) HAS HAD OXYCODONE BEFORE WITHOUT ISSUE Past Medical History Medical History 1. Chronic back pain 2. L4 compression 3. Spinal stenosis 4. Peripheral vascular disease s/p right LE angioplasty with stenting 5. CKD 3 6. Bladder cancer 7. Severe COPD/emphysema 8. Dyslipidemia 9. Insulin-dependent diabetes mellitus 10. Hypothyroidism 11. Hypertension 12. CHF 13. Right upper lobe lung mass 14. Anxiety/depression Surgical History 1. Hysterectomy 2. Vaginal tumor removal 3. Bilateral leg stents 4. Lung mass removed 5. Bilateral cataract surgery Family History Father: at 76 year old, history of cerebral artery occlusion with cerebral infarct Mother: at 77 year old, history of KS and DM Social History * Smoker: current smoker A-FIB/CHADSVASC A-FIB History Current/History of A-Fib/PAF?: No Review of Systems Constitutional: Reports: Other (feels cold); Denies: Fever Eyes: Denies: Vision change ENT: Denies: Sore Throat Skin: Denies: Rash Pulmonary: Reports: Dyspnea, Cough Cardiovascular: Denies: Chest Pain Gastrointestinal: Denies: Abdominal Pain Genitourinary: Denies: Dysuria Hematologic: Denies: Bruising Neurological: Denies: Numbness Psych: Reports: Anxiety, Depression Physical Examination General Exam: Positive: Alert, Cooperative Eye Exam: Positive: EOMI; Negative: Sclera icteric ENT Exam: Positive: Atraumatic Neck Exam: Positive: Supple Chest Exam: Positive: Diminished Heart Exam: Positive: Rate Normal, Regular Rhythm Abdomen Exam: Positive: Normal bowel sounds, Soft; Negative: Tenderness Neuro Exam: Positive: Normal Speech, Cranial Nerves 3-12 NL Psych Exam: Positive: Anxiety Vital Signs Vital Signs Date Time Temp Pulse Resp B/P (MAP) Pulse Ox O2 Delivery O2 Flow Rate FiO2 08/27/20 12:15 81 174/79 (110) 97 08/27/20 11:00 Nasal Cannula 08/27/20 08:46 98.4 18 Laboratory Data Labs 24H Laboratory Tests 2 08/27/20 08:43: Bedside Glucose (Misc Panel) 92 08/27/20 10:13: Nucleated Red Blood Cells % (auto) 0.0, Anion Gap 7L, Glomerular Filtration Rate > 60.0, Calcium Level 8.8 08/27/20 10:36: POC pH (Misc Panel) 7.425, POC Base Excess (Misc Panel) 4.0H, POC Saturated Percent O2 (Misc) 95, POC pO2 (Misc Panel) 74.0L, POC pCO2 (Misc Panel) 43.5, POC HCO3 (Misc Panel) 28.5H, POC Total CO2 (Misc Panel) 30.0H 08/27/20 12:00: CBC/BMP Laboratory Tests 08/27/20 10:13 Assessment/Plan Mrs. Ponce is a 74 year old female with COPD, insulin dependent diabetes mellitus, and history of medical non-compliance who is here for hypoglycemia, weakness, and failure to thrive. Patient could not afford medications, although she was able to obtain nicotine patches which she did not use. She continued to smoke. She also felt too weak to make food for herself. Patient arrived here hypoglycemic. Will start patient on carbohydrate consistent diet with basal bolus insulin. Will restart steroids and antibiotics which was sent to her pharmacy when she was discharged. Plan / VTE VTE Prophylaxis Ordered?: Yes Plan Plan 1. Failure to thrive, weakness, hypoglycemia -Patient not able to afford medications or make food for herself -Will consult Case Management/PFS 2. Diabetes mellitus -Carbohydrate consistent diet -Basal bolus insulin 3. COPD -Not in exacerbation -Restart steroids and antibiotics she was not able to afford 4. Nicotine dependence -Restart nicotine patch 5. Hypertension -Continue amlodipine, hydralazine, and lisinopril 6. PVD -Continue atorvastatin and clopidogrel 7. Anxiety/depression -Continue duloxetine and PRN hydroxyzine 8. Hypothyroidism -Continue levothyroxine 9. DVT ppx -Heparin subq Disposition: Pending clinical improvement and safe discharge plan COLTON LEIVA DO Aug 27, 2020 13:02
[2020-08-27 15:00] VITALS: BP 150/69
[2020-08-27] MEDS: NICOTINE 21MG/24HR 1 EA TRANSDERMAL TD SCH (17:06)
[2020-08-27] MEDS: ACETAMINOPHEN TAB 650MG DOSE (2X325MG) PO PRN (17:07)
[2020-08-27] MEDS: HumaLOG INSULIN (NovoLOG) PER UNIT SC SCH ×2 (17:14→20:14)
[2020-08-27] MEDS: SYMBICORT 160/4.5MCG INHALER 6GM INH SCH (20:08)
[2020-08-27] MEDS: ATORVASTATIN 20 MG TAB PO SCH (20:22)
[2020-08-27] MEDS: DOXYCYCLINE HYCLATE 100MG TABLET PO SCH (20:22)
[2020-08-27] MEDS: CEFDINIR 300 MG CAP (OMNICEF) PO SCH (20:22)
[2020-08-27] MEDS: HEPARIN SOD (PORCINE) 5000UNITS/ML 1ML VIAL/SYRINGE SC SCH (20:23)
[2020-08-27] MEDS: **hydrALAZINE** 50 MG TAB PO SCH (20:23)
[2020-08-27 22:00] VITALS: BP 144/69
[2020-08-28] MEDS: ACETAMINOPHEN TAB 650MG DOSE (2X325MG) PO PRN (04:11)
[2020-08-28] MEDS: hydrOXYzine 10 MG TAB PO PRN ×2 (04:11→21:48)
[2020-08-28 06:00] VITALS: BP 138/66
[2020-08-28 06:14] LABS: HEMATOCRIT 34.5 % (36.0-47.0); MEAN CORPUSCULAR HEMOGLOBIN 30.8 pg (27.0-33.0); MEAN CORPUSCULAR HGB CONC 31.9 g/dl (32.0-36.5); MEAN CORPUSCULAR VOLUME 96.6 fl (80.0-96.0); PLATELET COUNT, AUTOMATED 160 10^3/uL (150-450); RED BLOOD COUNT 3.57 10^6/uL (4.00-5.40); WHITE BLOOD COUNT 9.3 10^3/uL (4.0-10.0)
[2020-08-28 06:27] LABS: CALCIUM LEVEL 8.3 MG/DL (8.8-10.2); CREATININE FOR GFR 0.97 MG/DL (0.55-1.30); GLOMERULAR FILTRATION RATE 59.8 (>39); POTASSIUM SERUM 4.5 MEQ/L (3.5-5.1)
[2020-08-28] MEDS: SYMBICORT 160/4.5MCG INHALER 6GM INH SCH ×2 (07:40→19:45)
[2020-08-28] MEDS: IPRATROPIUM 0.5MG/ALBUTEROL 2.5MG INH SOL UD 3ML (DUONEB) NEB SCH ×5 (07:54→23:15)
[2020-08-28] MEDS ORDERED: methylPREDNISolone 125MG 2ML VIAL IV ONE (08:00)
[2020-08-28] MEDS ORDERED: LEVEMIR (INSULIN DETEMIR) 1 UNITS/0.01ML SC SCH (09:00)
[2020-08-28] MEDS: LEVOTHYROXINE 75MCG TABLET (0.075MG) PO SCH (09:28)
[2020-08-28] MEDS: lisinopriL 40 MG TAB PO SCH (09:28)
[2020-08-28] MEDS: DOXYCYCLINE HYCLATE 100MG TABLET PO SCH ×2 (09:29→21:49)
[2020-08-28] MEDS: DULoxetine 30 MG CAP (CYMBALTA) PO SCH (09:29)
[2020-08-28] MEDS: CEFDINIR 300 MG CAP (OMNICEF) PO SCH ×2 (09:29→21:48)
[2020-08-28] MEDS: GABAPENTIN 100 MG CAP PO SCH (09:29)
[2020-08-28] MEDS: **hydrALAZINE** 50 MG TAB PO SCH ×2 (09:29→21:48)
[2020-08-28] MEDS: NICOTINE 21MG/24HR 1 EA TRANSDERMAL TD SCH (09:29)
[2020-08-28] MEDS: CLOPIDOGREL 75 MG TAB PO SCH (09:29)
[2020-08-28] MEDS: HumaLOG INSULIN (NovoLOG) PER UNIT SC SCH ×4 (09:30→21:48)
[2020-08-28] MEDS: HEPARIN SOD (PORCINE) 5000UNITS/ML 1ML VIAL/SYRINGE SC SCH ×2 (09:30→21:47)
--- NOTE | 2020-08-28 10:42 | IPNPDOC ---
Subjective Date Seen The patient was seen on 08/28/20. Subjective Chief Complaint/HPI Mrs. Ponce is a 74 year old female with COPD, insulin dependent diabetes mellitus, and history of medical non-compliance who is here for hypoglycemia, weakness, and failure to thrive. This morning, she was feeling weak and tied. Lungs were mildly wheezy. Will give her a dose of solumedrol today and switch to prednisone tomorrow. She was non-compliant of medication since discharge and would have missed a few doses of prednisone. Will schedule duonebs since she had not asked for the PRN nebs. Objective Physical Examination General Exam: Positive: Alert, Cooperative Eye Exam: Positive: EOMI; Negative: Sclera icteric ENT Exam: Positive: Atraumatic Neck Exam: Positive: Supple Chest Exam: Positive: Diminished Heart Exam: Positive: Rate Normal, Regular Rhythm Abdomen Exam: Positive: Normal bowel sounds, Soft; Negative: Tenderness Neuro Exam: Positive: Normal Speech, Cranial Nerves 3-12 NL Psych Exam: Positive: Anxiety Assessment /Plan Assessment Mrs. Ponce is a 74 year old female with COPD, insulin dependent diabetes mellitus, and history of medical non-compliance who is here for hypoglycemia, weakness, and failure to thrive. Patient tells me she could not afford medi cations, although she was able to obtain nicotine patches which she did not use. She continued to smoke. She also felt too weak to make food for herself. Patient arrived here hypoglycemic from not eating. Will start patient on carbohydrate consistent diet with basal bolus insulin. Will restart steroids and antibiotics which was sent to her pharmacy when she was discharged. Plan/VTE VTE Prophylaxis Ordered?: Yes Plan 1. Failure to thrive, weakness, hypoglycemia -Patient not able to afford medications or make food for herself -Will consult Case Management/PFS 2. Diabetes mellitus -Carbohydrate consistent diet -Basal bolus insulin -I have decreased her Levemir from 20u to 10u due to hypoglycemia on admission 3. COPD -Not in exacerbation -Restarted antibiotics and steroids which she was non-compliant with -Cefdinir and doxycycline day 1 4. Nicotine dependence -Restart nicotine patch 5. Hypertension -Continue amlodipine, hydralazine, and lisinopril 6. PVD -Continue atorvastatin and clopidogrel 7. Anxiety/depression -Continue duloxetine and PRN hydroxyzine 8. Hypothyroidism -Continue levothyroxine 9. DVT ppx -Heparin subq Disposition: Pending clinical improvement and safe discharge plan VS, I&O, 24H, Fishbone Vital Signs/I&O Vital Signs Date Time Temp Pulse Resp B/P (MAP) Pulse Ox O2 Delivery O2 Flow Rate FiO2 08/28/20 09:29 97 148/71 08/28/20 06:00 97.3 19 96 Nasal Cannula 2.0 I&O- Last 24 Hours up to 6 AM 08/28/20 06:00 Intake Total 870 ml Output Total 500 ml Balance 370 ml Laboratory Data 24H LABS Laboratory Tests 2 08/27/20 12:00: Coronavirus (COVID-19)(PCR) NEGATIVE, Influenza Type A (RT-PCR) NEGATIVE, Influenza Type B (RT-PCR) NEGATIVE, Respiratory Syncytial Virus (PCR) NEGATIVE 08/27/20 12:31: Bedside Glucose (Misc Panel) 113H 08/27/20 13:53: Bedside Glucose (Misc Panel) 59L 08/27/20 14:31: Bedside Glucose (Misc Panel) 80L 08/27/20 16:51: Bedside Glucose (Misc Panel) 75L 08/27/20 19:43: Bedside Glucose (Misc Panel) 210H 08/28/20 05:30: Nucleated Red Blood Cells % (auto) 0.0, Anion Gap 2L, Glomerular Filtration Rate 59.8, Calcium Level 8.3L CBC/BMP Laboratory Tests 08/28/20 05:30 COLTON LEIVA DO Aug 28, 2020 10:42
[2020-08-28 14:00] VITALS: BP 109/58
[2020-08-28] MEDS: ATORVASTATIN 20 MG TAB PO SCH (21:49)
[2020-08-29] MEDS: IPRATROPIUM 0.5MG/ALBUTEROL 2.5MG INH SOL UD 3ML (DUONEB) NEB SCH ×6 (03:51→23:06)
[2020-08-29 06:00] VITALS: BP 154/74
[2020-08-29 06:21] LABS: HEMATOCRIT 33.9 % (36.0-47.0); HEMOGLOBIN 10.9 g/dl (12.0-15.5); MEAN CORPUSCULAR HEMOGLOBIN 30.6 pg (27.0-33.0); MEAN CORPUSCULAR HGB CONC 32.2 g/dl (32.0-36.5); MEAN CORPUSCULAR VOLUME 95.2 fl (80.0-96.0); PLATELET COUNT, AUTOMATED 154 10^3/uL (150-450); RED BLOOD COUNT 3.56 10^6/uL (4.00-5.40); WHITE BLOOD COUNT 9.7 10^3/uL (4.0-10.0)
[2020-08-29 06:48] LABS: CALCIUM LEVEL 8.7 MG/DL (8.8-10.2); CREATININE FOR GFR 1.13 MG/DL (0.55-1.30); GLOMERULAR FILTRATION RATE 50.1 (>39); POTASSIUM SERUM 4.6 MEQ/L (3.5-5.1)
[2020-08-29] MEDS: SYMBICORT 160/4.5MCG INHALER 6GM INH SCH ×2 (07:21→20:04)
[2020-08-29] MEDS: HumaLOG INSULIN (NovoLOG) PER UNIT SC SCH ×4 (08:15→21:00)
[2020-08-29] MEDS: NICOTINE 21MG/24HR 1 EA TRANSDERMAL TD SCH (08:15)
[2020-08-29] MEDS: GABAPENTIN 100 MG CAP PO SCH (08:16)
[2020-08-29] MEDS: CLOPIDOGREL 75 MG TAB PO SCH (08:16)
[2020-08-29] MEDS: HEPARIN SOD (PORCINE) 5000UNITS/ML 1ML VIAL/SYRINGE SC SCH ×2 (08:16→21:00)
[2020-08-29] MEDS: LEVEMIR (INSULIN DETEMIR) 1 UNITS/0.01ML SC SCH (08:16)
[2020-08-29] MEDS: DOXYCYCLINE HYCLATE 100MG TABLET PO SCH ×2 (08:17→21:18)
[2020-08-29] MEDS: LEVOTHYROXINE 75MCG TABLET (0.075MG) PO SCH (08:17)
[2020-08-29] MEDS: predniSONE 10 MG TAB PO SCH (08:17)
[2020-08-29] MEDS: DULoxetine 30 MG CAP (CYMBALTA) PO SCH (08:17)
[2020-08-29] MEDS: lisinopriL 40 MG TAB PO SCH (08:17)
[2020-08-29] MEDS: CEFDINIR 300 MG CAP (OMNICEF) PO SCH ×2 (08:17→21:18)
[2020-08-29] MEDS: **hydrALAZINE** 50 MG TAB PO SCH ×2 (08:19→21:19)
[2020-08-29 14:00] VITALS: BP 135/74
--- NOTE | 2020-08-29 14:00 | IPNPDOC ---
Text Note Date of Service The patient was seen on 08/29/20. NOTE Subjective: 74-year-old female with COPD, insulin-dependent diabetes mellitus, and history of medical noncompliance who is here for hypoglycemia, weakness, and failure to thrive. Patient is feeling weak and tired. Patient has been discharged twice and has come back to the hospital within 48 hours of her discharge due to inability to care for herself. Patient has been denied by both the home health care agencies due to her nonadherence to the treatment and smoking while using oxygen. Patient will need custodial placement. Review of systems: General: Patient denies fevers HEENT: Patient denies headaches Cardiovascular: Patient denies chest pain Respiratory: Patient denies shortness of breath, cough GI: Patient denies abdominal pain, nausea, vomiting, diarrhea : Patient denies increased frequency or pain with urination Extremities: Patient denies swelling or pain in extremities Neurological: Patient denies numbness or tingling in legs Physical exam: Vitals: See below General: Alert and oriented female patient who was laying in bed when I walked into the room. Patient did not appear to be in any acute distress. HEENT: Normocephalic, atraumatic, moist mucous membranes. Neck: No lymphadenopathy or thyromegaly Cardiac: Regular rate and rhythm, no murmurs, normal S1, normal S2 Pulm: Clear to auscultation bilaterally. No wheezes, rhonchi, rales Abd: Nondistended, nontender to palpation, normal bowel sounds Ext: No edema bilateral lower extremities Labs: See below Imaging: No new imaging has been performed Assessment/plan: 74-year-old female with COPD, insulin-dependent diabetes mellitus, history of medical nonadherence who is here for hypoglycemia, weakness, and failure to thrive. Patient continues to smoke and she was feeling too weak at home to make food for self. 1. Failure to thrive. Patient states that she is unable to afford her medications or make food for herself. Case management/PFS has worked with the patient. Patient has been unsafe to be discharged since she has been discharged multiple times over the past week and has reported back to the hospital within 24 to 48 hours. Patient has been declined from the home health care agencies due to smoking while using oxygen. 2. Weakness. Patient will need placement with subacute rehab for possible placement in custodial facility. 3. Diabetes mellitus. Continue consistent carbohydrate diet. Levemir has been decreased to 10 units due to hypoglycemia and admission 4. COPD. Not in exacerbation. Patient was sent home with antibiotics and steroids which she was noncompliant with. Continue those medications. 5. Nicotine dependence. Restart nicotine patch. 6. Hypertension. Continue home medications. 7. Peripheral vascular disease. Continue home medications. 8. Anxiety/depression. Continue duloxetine and as needed hydroxyzine. 9. Hypothyroidism. DVT Prophylaxis: Heparin subcutaneous Disposition: Pending placement in custodial facility or facilitation of discharge to a friend's house in [place] who will be able to provide further care for the patient. Patient will be made ALC status today. VS,Bertrambone, I+O VS, Yevgeniye, I+O Laboratory Tests 08/29/20 05:36 Vital Signs Date Time Temp Pulse Resp B/P (MAP) Pulse Ox O2 Delivery O2 Flow Rate FiO2 08/29/20 08:19 95 178/89 08/29/20 06:00 98.1 18 94 Room Air 08/28/20 06:00 2.0 I&O- Last 24 Hours up to 6 AM 08/29/20 06:00 Intake Total 2730 ml Output Total 1100 ml Balance 1630 ml CAM POLANCO DO Aug 29, 2020 14:00
[2020-08-29] MEDS: ACETAMINOPHEN TAB 650MG DOSE (2X325MG) PO PRN (21:18)
[2020-08-29] MEDS: ATORVASTATIN 20 MG TAB PO SCH (21:18)
[2020-08-29] MEDS: hydrOXYzine 10 MG TAB PO PRN (21:18)
[2020-08-30] MEDS: IPRATROPIUM 0.5MG/ALBUTEROL 2.5MG INH SOL UD 3ML (DUONEB) NEB SCH ×4 (03:35→16:00)
[2020-08-30 06:00] VITALS: BP 135/70
[2020-08-30 06:34] LABS: HEMOGLOBIN 11.4 g/dl (12.0-15.5); MEAN CORPUSCULAR HEMOGLOBIN 31.1 pg (27.0-33.0); MEAN CORPUSCULAR HGB CONC 32.6 g/dl (32.0-36.5); MEAN CORPUSCULAR VOLUME 95.6 fl (80.0-96.0); PLATELET COUNT, AUTOMATED 176 10^3/uL (150-450); RED BLOOD COUNT 3.66 10^6/uL (4.00-5.40); WHITE BLOOD COUNT 10.9 10^3/uL (4.0-10.0)
[2020-08-30] MEDS: SYMBICORT 160/4.5MCG INHALER 6GM INH SCH (07:15)
[2020-08-30 07:19] LABS: CALCIUM LEVEL 9.1 MG/DL (8.8-10.2); CREATININE FOR GFR 1.05 MG/DL (0.55-1.30); GLOMERULAR FILTRATION RATE 54.4 (>39); POTASSIUM SERUM 5.6 MEQ/L (3.5-5.1)
[2020-08-30] MEDS: predniSONE 10 MG TAB PO SCH (08:31)
[2020-08-30] MEDS: CEFDINIR 300 MG CAP (OMNICEF) PO SCH (08:31)
[2020-08-30] MEDS: DULoxetine 30 MG CAP (CYMBALTA) PO SCH (08:31)
[2020-08-30 08:32] VITALS: BP 135/70
[2020-08-30] MEDS: **hydrALAZINE** 50 MG TAB PO SCH (08:32)
[2020-08-30] MEDS: lisinopriL 40 MG TAB PO SCH (08:32)
[2020-08-30] MEDS: GABAPENTIN 100 MG CAP PO SCH (08:32)
[2020-08-30] MEDS: LEVOTHYROXINE 75MCG TABLET (0.075MG) PO SCH (08:32)
[2020-08-30] MEDS: CLOPIDOGREL 75 MG TAB PO SCH (08:32)
[2020-08-30] MEDS: DOXYCYCLINE HYCLATE 100MG TABLET PO SCH (08:32)
[2020-08-30] MEDS: HumaLOG INSULIN (NovoLOG) PER UNIT SC SCH ×2 (08:33→12:28)
[2020-08-30] MEDS: LEVEMIR (INSULIN DETEMIR) 1 UNITS/0.01ML SC SCH (08:33)
[2020-08-30] MEDS: HEPARIN SOD (PORCINE) 5000UNITS/ML 1ML VIAL/SYRINGE SC SCH (08:34)
[2020-08-30] MEDS: NICOTINE 21MG/24HR 1 EA TRANSDERMAL TD SCH (08:39)
[2020-08-30] MEDS: hydrOXYzine 10 MG TAB PO PRN (15:03)
--- NOTE | 2020-08-30 16:58 | DS.PDOC ---
Discharge Summary General Date of Admission Aug 28, 2020 at 11:12 Date of Discharge 08/30/2020 Attending Physician: CAM POLANCO DO Discharge Summary PROCEDURES PERFORMED DURING STAY: None. ADMITTING DIAGNOSES: 1. Failure to thrive. 2. Weakness 3. Hypoglycemia 4. Diabetes mellitus 5. COPD 6. Nicotine dependence 7. Hypertension 8. Peripheral vascular disease 9. Anxiety/depression 10. Hypothyroidism DISCHARGE DIAGNOSES: 1. Failure to thrive. 2. Weakness 3. Hypoglycemia 4. Diabetes mellitus 5. COPD 6. Nicotine dependence 7. Hypertension 8. Peripheral vascular disease 9. Anxiety/depression 10. Hypothyroidism COMPLICATIONS/CHIEF COMPLAINT: Failure To Thrive And Weakness. HISTORY OF PRESENT ILLNESS: Patient is a 74-year-old female who presented to the emergency department with hypoglycemia weakness and failure to thrive. Patient had been recently admitted from August 12, August 17, and August 23 the prior to returning on 08/27/2020. Patient states that she went home and could not afford her medication. She did not have insulin at home. She was able to obtain nicotine patches, but did not use them and continue to smoke. Patient felt weak and cannot cook or make any food for self. Today, she is very anxious and called EMS because her diabetes is out of control. She could not afford her test strips to check her blood sugar. Patient's blood sugar was very low and she was given orange juice. In the emergency department her glucose was 40. Otherwise she is not in COPD exacerbation and her blood pressure is elevated from noncompliance with with her medications. Patient reports feeling cold. Her cough and sputum production and dyspnea are at baseline. HOSPITAL COURSE: Patient's blood sugar returned was no longer low and the pat ient was breathing back at her baseline now that she was on her medications. Because of the patient's recent admissions and discharges this being the fourth in the month of August 2020, the decision was made to attempt to make a safe discharge plan for the patient. Patient was able to pass physical therapy to do the things that she usually does at home however, the patient is unable to care for self and take her medications. Patient is unable to be a patient of the 2 home care agencies due to past incidents with the [employer]. Patient needs home health services in order to function at home. Social work and myself had been working with the patient and patient's son however, the patient's son has been attempting to help his mother but he is not able to provide full amount of care that the patient requires. There was the beginning of a plan to send the patient to a friend's house in the [facility] or to an assisted living facility. Patient was made ALC status on 08/29/2020 as the patient was deemed medically ready for discharge however, a safe discharge plan had not been made at that time. Patient had not been seen on 08/30/2020 prior to leaving AGAINST MEDICAL ADVICE. Nursing staff spoke with the patient and advised her that a safe discharge plan had not yet been established yet it was in the works however, the patient did not want to stay and decided to leave AGAINST MEDICAL ADVICE. Risks and benefits of staying and leaving were discussed with the patient by nursing staff and the patient signed the AGAINST MEDICAL ADVICE form and left the hospital on 08/30/2020 DISCHARGE MEDICATIONS: Please see below. ALLERGIES: Please see below. PHYSICAL EXAMINATION ON DISCHARGE: VITAL SIGNS: Please see below. Physical exam was unable to be performed by the physician as patient left before physician made it to the floor LABORATORY DATA: Please see below. IMAGING: Chest x-ray performed on 08/27/2020 was reported to show advanced COPD with chronic fibrotic changes of pleural thickening laterally in the right mid and upper lung zone as before. I do not see pneumothorax or pleural effusion. No acute infiltrate evident. There is some lateral pleural thickening in the right lateral base adjacent to the right lateral eighth rib fracture seen previously. No cardiomegaly, edema or other acute findings. PROGNOSIS: Poor ACTIVITY: As tolerated. DIET: Consistent carbohydrate DISCHARGE PLAN: Discharged AGAINST MEDICAL ADVICE DISPOSITION: 07 Against Medical Advice. DISCHARGE INSTRUCTIONS: 1. Follow-up with your primary care provider within 3 to 5 days of discharge. 2. Continue to take prednisone and antibiotics that have been prescribed in previous admissions. 3. Return to the emergency department if your symptoms worsen. ITEMS TO FOLLOWUP ON ON OUTPATIENT: 1. Follow-up with possible home care and/or placement. DISCHARGE CONDITION: Stable. TIME SPENT ON DISCHARGE: 20 minutes. Vital Signs/I&Os Vital Signs Date Time Temp Pulse Resp B/P (MAP) Pulse Ox O2 Delivery O2 Flow Rate FiO2 08/30/20 08:32 135/70 08/30/20 08:31 92 08/30/20 06:00 97.9 18 96 Room Air 08/28/20 06:00 2.0 I&O- Last 24 Hours up to 6 AM 08/30/20 06:00 Intake Total 1380 ml Balance 1380 ml Laboratory Data Labs 24H Laboratory Tests 2 08/29/20 20:16: Bedside Glucose (Misc Panel) 221H 08/30/20 05:36: Nucleated Red Blood Cells % (auto) 0.0, Anion Gap 5L, Glomerular Filtration Rate 54.4, Calcium Level 9.1 08/30/20 11:33: Bedside Glucose (Misc Panel) 257H CBC/BMP Laboratory Tests 08/30/20 05:36 08/30/20 14:35 FSBS Laboratory Tests Test 08/29/20 20:16 08/30/20 11:33 Range/Units Bedside Glucose (Misc Panel) 221 257 83-110 MG/DL Discharge Medications Scheduled Amlodipine Besylate (Amlodipine Besylate) 10 Mg Tablet, 10 MG PO DAILY, (Reported) Atorvastatin Calcium (Atorvastatin Calcium) 40 Mg Tablet, 40 MG PO QHS, (Reported) Cefdinir (Cefdinir) 300 Mg Capsule, 300 MG PO BID, (Reported) Clopidogrel Bisulfate (Plavix) 75 Mg Tablet, 75 MG PO DAILY, (Reported) Doxycycline Monohydrate (Doxycycline Monohydrate) 100 Mg Capsule, 100 MG PO BID, (Reported) Duloxetine HCl (Duloxetine HCl) 60 Mg Capsule.dr, 60 MG PO DAILY, (Reported) Fluticasone/Vilanterol (Breo Ellipta 200-25 Mcg INH) 1 Each Blst.w.dev, 1 PUFF INH DAILY, (Reported) Gabapentin (Gabapentin) 100 Mg Capsule, 100 MG PO DAILY, (Reported) Hydralazine HCl (Hydralazine HCl) 50 Mg Tablet, 50 MG PO BID, (Reported) Insulin Glargine,Hum.rec.anlog (Basaglar Kwikpen U-100) 100 Unit/1 Ml Insuln.pen, 20 UNIT SC DAILY, (Reported) Levothyroxine Sodium (Levothyroxine Sodium) 75 Mcg Tablet, 75 MCG PO DAILY, (Reported) Lisinopril (Lisinopril) 40 Mg Tablet, 40 MG PO DAILY, (Reported) Metformin HCl (Metformin HCl) 500 Mg Tablet, 500 MG PO BID, (Reported) Prednisone (Prednisone) 10 Mg Tablet, 10 MG PO TAPER, (Reported) Take 4 tabs daily x 3 days, then 3 tabs daily x 3 days, then 2 tabs daily x 3 days, then 1 tab daily x 3 days and stop Scheduled PRN Hydroxyzine HCl (Hydroxyzine HCl) 10 Mg Tablet, 10 MG PO Q8H PRN for ANXIETY, (Reported) Allergies Coded Allergies: Sulfa (Sulfonamide Antibiotics) (Verified Allergy, Mild, RASH, 07/14/20) bacitracin (Verified Allergy, Mild, RASH, 07/14/20) cortisone (Verified Allergy, Mild, RASH, 07/14/20) neomycin (Verified Allergy, Mild, RASH, 07/14/20) polymyxin B (Verified Allergy, Mild, RASH, 07/14/20) red dye (Unverified Allergy, Mild, rash OCCURRED ONCE WITH CAPSULE MED NO OTHER PROBLEMS WIT, 08/23/20) fluoxetine (Unverified Allergy, Unknown, 07/14/20) tramadol (Unverified Allergy, Unknown, 07/14/20) HAS HAD OXYCODONE BEFORE WITHOUT ISSUE CAM POLANCO DO Aug 30, 2020 16:58
== END 2020-08-30 15:45 | disposition left against medical advice (07) | DRG 638 ==
LOC: M ED 08:33 → EDBD 08:33 → M ED INP 12:21 → ENRESERV 13:57 → M MSPAV 14:52 → OBSVTOIN 08-28 11:12
PROVIDERS: ADMIT Internal Medicine; ATTEND Family Medicine
DX: E11.649 Type 2 diabetes mellitus with hypoglycemia without coma (principal); I13.0 Hypertensive heart and chronic kidney disease with heart failure and stage 1 through stage 4 chronic kidney disease, or unspecified chronic kidney disease; R53.1 Weakness; R62.7 Adult failure to thrive; J44.9 Chronic obstructive pulmonary disease, unspecified; F41.9 Anxiety disorder, unspecified; F32.9 Major depressive disorder, single episode, unspecified; E03.9 Hypothyroidism, unspecified; T38.3X6A Underdosing of insulin and oral hypoglycemic [antidiabetic] drugs, initial encounter; T38.0X6A Underdosing of glucocorticoids and synthetic analogues, initial encounter; E11.51 Type 2 diabetes mellitus with diabetic peripheral angiopathy without gangrene; N18.30 Chronic kidney disease, stage 3 unspecified; E11.22 Type 2 diabetes mellitus with diabetic chronic kidney disease; E78.5 Hyperlipidemia, unspecified; I50.9 Heart failure, unspecified; R91.8 Other nonspecific abnormal finding of lung field; Z95.820 Peripheral vascular angioplasty status with implants and grafts; Z88.2 Allergy status to sulfonamides; Z88.1 Allergy status to other antibiotic agents; Z88.5 Allergy status to narcotic agent; Z88.8 Allergy status to other drugs, medicaments and biological substances; Z91.048 Other nonmedicinal substance allergy status; Z79.02 Long term (current) use of antithrombotics/antiplatelets; Z79.4 Long term (current) use of insulin; Z79.899 Other long term (current) drug therapy; F17.200 Nicotine dependence, unspecified, uncomplicated; Z91.120 Patient's intentional underdosing of medication regimen due to financial hardship

== ENCOUNTER 2020-09-02 13:42 | Inpatient (IN) | payer MEDICARE ==
[~2020-09-02] VITALS: Ht 157.5 cm; Wt 53.5 kg
[~2020-09-02 13:42] MED LIST changes: -DOXY100C PO; +DOXY100C3 PO; +DOXY1CAP62 PO; -LISI2.5T2 PO; +LISI2.5T9 PO
[2020-09-02] MEDS ORDERED: IPRATROPIUM 0.5MG/ALBUTEROL 2.5MG INH SOL UD 3ML (DUONEB) NEB ONE (14:30)
[2020-09-02] MEDS ORDERED: methylPREDNISolone 125MG 2ML VIAL IV ONE (14:30)
[2020-09-02] MEDS ORDERED: ALBUTEROL SULFATE 2.5 MG/0.5 ML INH NEB SOLN INH ONE (14:30)
--- NOTE | 2020-09-02 14:33 | REP ---
INDICATION: DYSPNEA/COUGH. COMPARISON: Most recent comparison study is from August 27, 2020. TECHNIQUE: Portable upright AP chest radiograph. FINDINGS: There is an area of peripheral pleuroparenchymal fibrosis and pleural thickening unchanged from the prior studies. The remaining lung ferrell are clear. Cardiomediastinal silhouette is unchanged. The aorta is calcific and tortuous. Pulmonary vasculature is not increased. There is diffuse osteopenia. Some vascular calcification is noted.. IMPRESSION: The stable area of pleural thickening and peripheral fibrosis right upper lobe. Otherwise no acute disease.. <Electronically signed by Aravind Sumner > 09/02/20 [id number]
[2020-09-02 15:10] LABS: BASO # 0.1 10^3/uL (0.0-0.2); BASO % 0.4 % (0.0-1.0); EOS # 0.1 10^3/uL (0.0-0.5); EOS % 0.9 % (0.0-3.0); HEMATOCRIT 33.8 % (36.0-47.0); HEMOGLOBIN 11.3 g/dl (12.0-15.5); LYMPH # 1.1 10^3/uL (1.5-5.0); LYMPH % 8.4 % (24.0-44.0); MEAN CORPUSCULAR HEMOGLOBIN 31.5 pg (27.0-33.0); MEAN CORPUSCULAR HGB CONC 33.4 g/dl (32.0-36.5); MEAN CORPUSCULAR VOLUME 94.2 fl (80.0-96.0); MONO # 0.6 10^3/uL (0.0-0.8); MONO % 4.3 % (2.0-8.0); NEUTROPHILS # 11.1 10^3/uL (1.5-8.5); NEUTROPHILS % 85.5 % (36.0-66.0); PLATELET COUNT, AUTOMATED 164 10^3/uL (150-450); RED BLOOD COUNT 3.59 10^6/uL (4.00-5.40); WHITE BLOOD COUNT 12.9 10^3/uL (4.0-10.0)
[2020-09-02 15:45] LABS: ALBUMIN 2.7 GM/DL (3.2-5.2); ALT/SGPT 38 U/L (12-78); BILIRUBIN,DIRECT < 0.1 MG/DL (0.0-0.2); BILIRUBIN,TOTAL 0.4 MG/DL (0.2-1.0); NT-PRO BNP 5926 PG/ML (<450); THYROXINE (T4) 9.6 UG/DL (4.5-12.0); TOTAL PROTEIN 5.6 GM/DL (6.4-8.2)
[2020-09-02] MEDS ORDERED: ISOVUE-370 76% 100ML VIAL As Ordered ONE (15:56)
--- NOTE | 2020-09-02 17:15 | REP ---
INDICATION: ro pe. COMPARISON: Comparison chest CT study August 17, 2020.. TECHNIQUE: Contrast dose: 75 ML of Isovue [address] technique: Helical scanning is acquired and overlapping 1.5 mm and contiguous 3 mm axial images are reformatted. In addition, maximum intensity projection and multiplanar re-formation images are generated in sagittal and coronal imaging projections. FINDINGS: There is good opacification in the pulmonary arterial tree. There is no evidence of vessel cut off or filling defect to suggest pulmonary embolus. Homogeneous opacity is seen in the thoracic aorta. There is no evidence of aneurysm or dissection. There is fairly impressive concentric left ventricular myocardial hypertrophy. No pleural or pericardial effusion is seen. No hilar or mediastinal mass or adenopathy is noted. Lung window settings demonstrate an area of pleuroparenchymal fibrosis is in the right upper lobe. This is unchanged. There are somewhat spiculated areas of nodularity however in the right middle lobe and in the superior segment of the right lower lobe as seen on August 17, 2020 study. These could be neoplastic nodules. The right lower lobe nodularity is new when compared with the February 19, 2020 study. The right middle lobe spiculated area is unchanged. No evidence of pneumothorax or hydrothorax. There is a right lateral 8th rib fracture again noted unchanged from the August 17, 2020 study. No bony destructive lesion is seen. In the upper abdomen, normal adrenal glands are observed. There are granulomatous calcifications in the spleen. There are a few granulomatous calcifications in the liver. The right kidney is again noted to be quite atrophic. IMPRESSION: No CT evidence of pulmonary embolus. Right lateral 8th rib fracture again seen. Granulomatous calcifications. Chronic pleuroparenchymal fibrosis right upper lobe. Somewhat irregular nodular density superior segment right lower lobe could be neoplastic. Four to six-month follow-up CT study recommended. Atrophic right kidney. Concentric left ventricular hypertrophy. <Electronically signed by Aravind Sumner > 09/02/20 [id number]
--- NOTE | 2020-09-02 17:17 | REP ---
INDICATION: ro dvt. COMPARISON: None. TECHNIQUE: Left {lower extremity duplex venous scanning is performed from the groin to the ankle level. FINDINGS: The deep veins are anechoic and fully compressible from the groin to the popliteal fossa in the left lower extremity. Color flow imaging is homogeneous. Spectral Doppler interrogation demonstrates intact respiratory variation in flow and normal manual augmentation of flow. There is no evidence of deep vein thrombosis above the knee. The left lower extremity calf veins could not be seen due to edema.. Doppler interrogation of the contralateral common femoral vein shows normal symmetric respiratory phasicity. IMPRESSION: No evidence of DVT in the left lower extremity femoropopliteal veins. <Electronically signed by Aravind Sumner > 09/02/20 [id number]
[2020-09-02] MEDS ORDERED: MAALOX 30 ML SUSP *UDC PO PRN (18:15)
[2020-09-02] MEDS ORDERED: MOM 30ML SUSPENSION UDC PO PRN (18:15)
[2020-09-02] MEDS ORDERED: GLUCAGON INJ 1MG VIAL SC PRN (18:25)
[2020-09-02] MEDS ORDERED: HOME MED LIST COMPLETE! XX SCH (18:25)
[2020-09-02] MEDS ORDERED: DEXTROSE 50% 50 ML SYRINGE IV PRN (18:25)
[2020-09-02] MEDS ORDERED: GLUCOSE 4GM CHEW TABLET PO PRN (18:25)
--- NOTE | 2020-09-02 18:33 | HPEPDOC ---
[facility] Medical History & Physical Date of Admission Sep 02, 2020 Date of Service: Sep 02, 2020 Other Provider She has no listed PCP in the chart Attending Physician: MADHU BARBER DO History and Physical CHIEF COMPLAINT: Shortness of breath since earlier this morning HISTORY OF PRESENT ILLNESS: Patient has had multiple recurrent hospital admissions, just in the last month even, as listed below. Most recently she left the hospital AGAINST MEDICAL ADVICE 3 days ago. She returns the hospital once again for evaluation of shortness of breath. When questioned she does not have any idea of what her home medications, and does not seem to know how to go about taking care of her health. She does recall the prior hospitalizations and states that it was stupid of her to have left the hospital at all last time. When asked why she left she states "I can't answer that". There may be a question regarding her capacity to leave AMA, and consideration may be made for a psych referral regarding this. Today she once again comes complaining of significant shortness of breath, therefore she returns to the hospital. The ED physician heard wheezing on examination, and administered Solu-Medrol and nebulizers suspecting that she was in COPD exacerbation. However, in addition to this she does have an elevated BNP of 6000, and a slightly swollen left lower extremity. Therefore, there is some question as to whether or not this is an acute decompensation of congestive heart failure versus embolus. Most recent echocardiogram was in February 2018, which showed preserved ejection fraction with grade [address] angio of the chest and left lower extremity ultrasound were negative for thrombus however. Lasix has also been administered. She will be admitted for both COPD exacerbation and acute decompensation of congestive heart failure. In addition to this, she still requires hospitalization as she has most sufficiently demonstrated that she is unable to care for herself while at home. PFS will be consulted so that they may be able to resume discharge planning to find her a suitable and safe living situation. Recurrent hospital admissions: -Weakness, hypoglycemia, and failure to thrive 08/27/2020-08/30/2020 -- left [facility] Medical Advice -COPD, hypertensive emergency, medical noncompliance 08/23/20 - 08/26/2019 -Rib fracture 08/17/2020 - 08/22/2020 -Hypoglycemia 08/12/2020 - 08/14/2020 Here is a direct copy/paste from her discharge summary 3 days ago: "HOSPITAL COURSE: Patient's blood sugar returned was no longer low and the patient was breathing back at her baseline now that she was on her medications. Because of the patient's recent admissions and discharges this being the fourth in the month of August 2020, the decision was made to attempt to make a safe discharge plan for the patient. Patient was able to pass physical therapy to do the things that she usually does at home however, the patient is unable to care for self and take her medications. Patient is unable to be a patient of the 2 home care agencies due to past incidents with the [employer]. Patient needs home health services in order to function at home. Social work and myself had been working with the patient and patient's son however, the patient's son has been attempting to help his mother but he is not able to provide full amount of care that the patient requires. There was the beginning of a plan to send the patient [place] a [place] [facility] [place] an [place] living facility. Patient was made ALC status on 08/29/2020 as the patient was deemed medically ready for discharge however, a safe discharge plan had not been made at that time. Patient had not been seen on 08/30/2020 prior to leaving AGAINST MEDICAL ADVICE. Nursing staff spoke with the patient and advised her that a [facility] discharge plan had not yet been established yet it was in the works however, the patient did not want to stay and decided to leave AGAINST MEDICAL ADVICE. Risks and benefits of staying and leaving were discussed with the patient by nursing staff and the patient signed the AGAINST MEDICAL ADVICE form and left the hospital on 08/30/2020" CODE STATUS: Full code PAST MEDICAL HISTORY: Chronic hypoxic respiratory failure requiring 2 L nasal cannula which is she consistently wears at night, and occasionally will wear during the day on an as- needed basis based on her shortness of breath. Severe COPD/emphysema Dyslipidemia Diabetes mellitus type 2, insulin-dependent Hypertension Hypothyroidism Vitamin B12 deficiency Vitamin D deficiency Spinal stenosis causing chronic back pain L4 compression Peripheral vascular disease status post right lower extremity angioplasty with stenting Chronic kidney disease stage III History of bladder cancer Tobacco use Right upper lobe lung mass Anxiety Depression Known history of medical noncompliance PAST SURGICAL HISTORY: Hysterectomy SOCIAL HISTORY: Current smoker, denies alcohol or illicit drug use FAMILY HISTORY: Father: at 76 year old, history of cerebral artery occlusion with cerebral infarct Mother: at 77 year old, history of [place] and [place] REVIEW OF SYSTEMS: Constitutional: Patient denies fevers, chills, night sweats, recent weight gain/loss. Cardiovascular: Patient admits to chest discomfort, exertional dyspnea, edema of the extremities, claudication. Respiratory: Patient admits to dyspnea, wheezing, cough. Denies hemoptysis, sputum production. Gastrointestinal: Patient denies nausea, vomiting, diarrhea, constipation, abdominal pain, melena, hematochezia, hematemesis, jaundice. PHYSICAL EXAMINATION: General: Awake, alert. She is wearing nasal cannula. She does appear to be mildly short of breath, but not in acute distress. HEENT: Head normocephalic atraumatic, conjunctiva are pink, sclera are nonicteric, buccal mucosa is pink and moist with no lesions in the oropharynx. Hearing is grossly intact to conversation. Respiratory: Demonstrates mild inspiratory and expiratory wheezing Cardiovascular: Regular rate and rhythm, with no rubs, gallops, or murmur. Abdomen: Soft, nontender, nondistended, no hepatosplenomegaly appreciated. Bowel sounds present. Extremities: 2+ pulses in the radial and dorsalis pedis bilaterally. No evidence of clubbing or cyanosis. Pitting 1-2+ edema noted in the left lower extremity to the knee. ELECTROCARDIOGRAM: Sinus rhythm with short OH interval. Minimal voltage criteria for LVH, however may be normal variant. Inferior infarct of undetermined age. ST and T wave abnormalities which may be consistent with lateral ischemia. IMAGING: CT ANGIO CHEST IMPRESSION: No CT evidence of pulmonary embolus. Right lateral 8th rib fracture again seen. Granulomatous calcifications. Chronic pleuroparenchymal fibrosis right upper lobe. Somewhat irregular nodular density superior segment right lower lobe could be neoplastic. Four to six-month follow-up CT study recommended. Atrophic right kidney. Concentric left ventricular hypertrophy. Duplex, Ext,LOWER veins,unilat LEFT IMPRESSION: No evidence of DVT in the left lower extremity femoropopliteal veins. PORTABLE CHEST X-RAY IMPRESSION: The stable area of pleural thickening and peripheral fibrosis right upper lobe. Otherwise no acute disease.. ASSESSMENT: Acute decompensation of congestive heart failure Acute on chronic respiratory failure with hypoxemia superimposed on chronic respiratory failure requiring outpatient oxygen Severe COPD/emphysema Failure to thrive Inability to care for herself at home Dyslipidemia Diabetes mellitus type 2, insulin-dependent Hypertension Hypothyroidism, TSH checked in the emergency department was found to be within normal limits. Spinal stenosis causing chronic back pain Peripheral vascular disease status post right lower extremity angioplasty with stenting Chronic kidney disease stage III History of bladder cancer Tobacco use Right upper lobe lung mass Anxiety Depression Known history of medical noncompliance PLAN: -Patient will be admitted to the [facility] floor -Repeat echocardiogram ordered (since it has been greater than 12 months since her most recent 1) -Given the findings on her EKG, will order a set of troponins now, and repeat them x3 -She has a known history of hypothyroidism, TSH was checked in the ED and found to be within normal limits. Continue home dose of levothyroxine. -She does have some mild edema of the lower extremity, however she does not appear to be overtly fluid overloaded. Will administer gentle PO Lasix, and continue to monitor. -We will administer 60 mg of prednisone now, and start her on 40 mg daily tomorrow, may taper as clinical condition improves. -Oxygen therapy orders with a goal to titrate to SpO2 of 88-92% -PT/OT consult given her inability to care for herself -information services assistant consult for discharge planning and potential placement -Basal and sliding scale insulin, as well as consistent carbohydrates diet with 2 g sodium restriction. Will also continue home dose of Metformin since GFR is normal, and this will reduce insulin requirement -DVT prophylaxis with Lovenox -Otherwise, we will continue the remainder of her home medications at their usual dose as listed below for her chronic medical conditions. -Consideration may be made for psych referral, if it is felt that she does not have capacity to make her own medical decisions. Vital Signs Vital Signs Date Time Temp Pulse Resp B/P (MAP) Pulse Ox O2 Delivery O2 Flow Rate FiO2 09/02/20 18:12 91 20 90 Nasal Cannula 2.0 09/02/20 14:08 97.7 148/71 (96) Laboratory Data Labs 24H Laboratory Tests 2 09/02/20 14:27: POC pH (Misc Panel) 7.538H, POC Base Excess (Misc Panel) 1.0, POC Saturated Percent O2 (Misc) 98, POC pO2 (Misc Panel) 98.0, POC pCO2 (Misc Panel) 27.8L, POC HCO3 (Misc Panel) 23.7, POC Total CO2 (Misc Panel) 25.0 09/02/20 14:37: Immature Granulocyte % (Auto) 0.5, Neutrophils (%) (Auto) 85.5H, Lymphocytes (%) (Auto) 8.4L, Monocytes (%) (Auto) 4.3, Eosinophils (%) (Auto) 0.9, Basophils (%) (Auto) 0.4, Neutrophils # (Auto) 11.1H, Lymphocytes # (Auto) 1.1L, Monocytes # (Auto) 0.6, Eosinophils # (Auto) 0.1, Basophils # (Auto) 0.1, Nucleated Red Blood Cells % (auto) 0.0, Total Bilirubin 0.4, Direct Bilirubin < 0.1, Aspartate Amino Transf (AST/SGOT) 34, Alanine Aminotransferase (ALT/SGPT) 38, Alkaline Phosphatase 113, IX-Kxs-J-Type Natriuretic Peptide 5926H, Total Protein 5.6L, Albumin 2.7L, Albumin/Globulin Ratio 0.9L, Thyroid Stimulating Hormone (TSH) 3.130, Thyroxine (T4) 9.6 09/02/20 14:38: Lactic Acid Level 1.1 09/02/20 15:07: POC Troponin I (Misc) 0.05 09/02/20 15:19: POC Glucose (Misc Panel) 222H, POC Sodium (Misc Panel) 137, POC Potassium (Misc Panel) 4.2, POC Chloride (Misc Panel) 102, POC Total CO2 (Misc Panel) 24.0, POC Blood Urea Nitrogen (Misc Panel 26, POC Ionized Calcium (Misc Panel) 4.0L, POC Creatinine (Misc Panel) 1.0, POC Hematocrit (Misc Panel) 37.0L CBC/BMP Laboratory Tests 09/02/20 14:37 Microbiology Microbiology 09/02/20 Respiratory Virus Panel (PCR) (SANDRA) - Final, Complete 09/02/20 Blood Culture, Received Pending 09/02/20 Blood Culture, Received Pending Home Medications Scheduled Amlodipine Besylate (Amlodipine Besylate) 10 Mg Tablet, 10 MG PO DAILY Atorvastatin Calcium (Atorvastatin Calcium) 40 Mg Tablet, 40 MG PO QHS Cefdinir (Cefdinir) 300 Mg Capsule, 300 MG PO BID Clopidogrel Bisulfate (Plavix) 75 Mg Tablet, 75 MG PO DAILY Doxycycline Monohydrate (Doxycycline Monohydrate) 100 Mg Capsule, 100 MG PO BID Duloxetine HCl (Duloxetine HCl) 60 Mg Capsule.dr, 60 MG PO DAILY Fluticasone/Vilanterol (Breo Ellipta 200-25 Mcg INH) 1 Each Blst.w.dev, 1 PUFF INH DAILY Gabapentin (Gabapentin) 100 Mg Capsule, 100 MG PO DAILY Hydralazine HCl (Hydralazine HCl) 50 Mg Tablet, 50 MG PO BID Insulin Glargine,Hum.rec.anlog (Basaglar Kwikpen U-100) 100 Unit/1 Ml Insuln.pen, 20 UNIT SC DAILY Levothyroxine Sodium (Levothyroxine Sodium) 75 Mcg Tablet, 75 MCG PO DAILY Lisinopril (Lisinopril) 40 Mg Tablet, 40 MG PO DAILY Metformin HCl (Metformin HCl) 500 Mg Tablet, 500 MG PO BID Prednisone (Prednisone) 10 Mg Tablet, 10 MG PO TAPER Take 4 tabs daily x 3 days, then 3 tabs daily x 3 days, then 2 tabs daily x 3 days, then 1 tab daily x 3 days and stop Scheduled PRN Hydroxyzine HCl (Hydroxyzine HCl) 10 Mg Tablet, 10 MG PO Q8H PRN for ANXIETY Allergies Coded Allergies: Sulfa (Sulfonamide Antibiotics) (Verified Allergy, Mild, RASH, 07/14/20) bacitracin (Verified Allergy, Mild, RASH, 07/14/20) cortisone (Verified Allergy, Mild, RASH, 07/14/20) neomycin (Verified Allergy, Mild, RASH, 07/14/20) polymyxin B (Verified Allergy, Mild, RASH, 07/14/20) red dye (Unverified Allergy, Mild, rash OCCURRED ONCE WITH CAPSULE MED NO OTHER PROBLEMS WIT, 08/23/20) fluoxetine (Unverified Allergy, Unknown, 07/14/20) tramadol (Unverified Allergy, Unknown, 07/14/20) HAS HAD OXYCODONE BEFORE WITHOUT ISSUE A-FIB/CHADSVASC A-FIB History Current/History of A-Fib/PAF?: No MADHU BARBER DO Sep 02, 2020 18:33
[2020-09-02] MEDS ORDERED: predniSONE 20 MG TAB PO ONE (19:00)
[2020-09-02] MEDS ORDERED: FUROSEMIDE 40 MG TAB PO ONE (19:30)
[2020-09-02] MEDS: HumaLOG INSULIN (NovoLOG) PER UNIT SC SCH (21:00)
[2020-09-02] MEDS ORDERED: LEVEMIR (INSULIN DETEMIR) 1 UNITS/0.01ML SC SCH (21:00)
--- NOTE | 2020-09-02 21:33 | ECGEPIP ---
[facility] - ED Test Date: 2020-09-02 Pat Name: ELA LIVINGSTON Department: Room: - Gender: Female Contracts Intern: : 1945 Requested By: Sumit Amezcua Order Number: [id number] Reading MD: Tika Ortega Measurements Intervals [place] Rate: 84 P: 70 KS: 110 QRS: -12 QRSD: 112 T: 111 QT: 432 QTc: 510 Interpretive Statements Sinus rhythm with short KS Minimal voltage criteria for LVH, may be normal variant ( Armando product ) Inferior infarct , age undetermined ST & T wave abnormality, consider ischemia baseline artifact may affect interpretation Prolonged QT compared 08/23/20 Electronically Signed on 09-02-2020 21:33:04 EDT by Tika Ortega
[2020-09-02] MEDS ORDERED: HumaLOG INSULIN (NovoLOG) PER UNIT SC ONE (22:15)
[2020-09-02 22:16] LABS: TROPONIN I 0.03 NG/ML (< 0.10)
[2020-09-02] MEDS: ATORVASTATIN 20 MG TAB PO SCH (22:17)
[2020-09-02] MEDS: **hydrALAZINE** 50 MG TAB PO SCH (22:17)
[2020-09-02] MEDS: ENOXAPARIN 30MG/0.3ML SYRINGE (J1650 PER 10MG) SC SCH (22:19)
[2020-09-03] MEDS ORDERED: HumaLOG INSULIN (NovoLOG) PER UNIT SC ONE (01:00)
[2020-09-03] MEDS: LEVOTHYROXINE 75MCG TABLET (0.075MG) PO SCH (05:46)
[2020-09-03 06:00] VITALS: BP 138/62
[2020-09-03 07:10] LABS: CALCIUM LEVEL 8.6 MG/DL (8.8-10.2); CREATININE FOR GFR 1.12 MG/DL (0.55-1.30); GLOMERULAR FILTRATION RATE 50.5 (>39); POTASSIUM SERUM 4.5 MEQ/L (3.5-5.1)
[2020-09-03] MEDS: HumaLOG INSULIN (NovoLOG) PER UNIT SC SCH ×4 (07:30→21:19)
[2020-09-03] MEDS: ADVAIR HFA 230/21MCG INHALER INH SCH ×2 (08:13→20:42)
[2020-09-03] MEDS ORDERED: HumaLOG INSULIN (NovoLOG) PER UNIT SC SCH (09:00)
[2020-09-03] MEDS ORDERED: lisinopriL 40 MG TAB PO SCH (09:00)
[2020-09-03] MEDS: CLOPIDOGREL 75 MG TAB PO SCH (10:16)
[2020-09-03] MEDS: DULoxetine 30 MG CAP (CYMBALTA) PO SCH (10:17)
[2020-09-03] MEDS: predniSONE 20 MG TAB PO SCH (10:17)
[2020-09-03] MEDS: GABAPENTIN 100 MG CAP PO SCH (10:17)
[2020-09-03] MEDS: **hydrALAZINE** 50 MG TAB PO SCH ×2 (10:18→21:21)
[2020-09-03 14:00] VITALS: BP 134/84
--- NOTE | 2020-09-03 18:51 | IPNPDOC ---
Subjective Date Seen The patient was seen on 09/03/20. Subjective Chief Complaint/HPI Mrs. Ponce is a 75 year old female with nocturnal hypoxia on 2L at night, COPD, IDDM type 2, hypertension, and hypothyroidism who is here for shortness of breath. This morning, her breathing is improved, but still not at baseline. Denies chest pain. Of note, blood culture in the afternoon return positive with gram negative rods. Started on Zosyn, pending culture and sensitivities. Objective Physical Examination General Exam: Positive: Alert, Cooperative Eye Exam: Negative: Sclera icteric ENT Exam: Positive: Atraumatic Neck Exam: Positive: Supple Chest Exam: Positive: Diminished Heart Exam: Positive: Rate Normal, Regular Rhythm Abdomen Exam: Positive: Normal bowel sounds, Soft; Negative: Tenderness Extremity Exam: Positive: Edema Neuro Exam: Positive: Normal Speech Psych Exam: Positive: Mental status NL, Mood NL Assessment /Plan Assessment Mrs. Ponce is a 75 year old female with nocturnal hypoxia on 2L at night, COPD, IDDM type 2, hypertension, and hypothyroidism who is here for shortness of breath. Most likely SOB from COPD exacerbation. Possibly have mild acute CHF. Otherwise, patient was found to have gram negative bacteremia. Unknown source, but possibly PNA given her shortness of breath and leukocytosis. Started patient on Zosyn Plan/VTE VTE Prophylaxis Ordered?: Yes Plan 1. Acute COPD exacerbation -Continue with PO prednisone -Continue with inhaler -Continue with PRN duonebs -Started patient on Zosyn day 1 2. Acute diastolic CHF -Echocardiogram 02/2018 demonstrates EF 60% with grade 1 diastolic dysfunction -Echocardiogram ordered -Elevated BNP -Held off on further diuresis due to bacteremia 3. Gram negative bacteremia -Unknown source, but possibly respiratory given her acute COPD exacerbation -Zosyn Day 1 -Pending culture results 4. Diabetes Mellitus type 2 -Not well controlled. Episodes of hypoglycemia and hyperglycemia -Continue Levemir. Lowered dose to 10units due to AM hypoglycemia -Continue sliding scale insulin 5. 5. Hypertension -Continue amlodipine, hydralazine, and lisinopril 6. PVD -Continue atorvastatin and clopidogrel 7. Anxiety/depression -Continue duloxetine and PRN hydroxyzine 8. Hypothyroidism -Continue levothyroxine 9. Nicotine dependence -Restart nicotine patch 10. DVT ppx -Lovenox Disposition: Pending blood culture results. Patient will need to work with PFS on safe discharge plan VS, I&O, 24H, [place] Vital Signs/I&O Vital Signs Date Time Temp Pulse Resp B/P (MAP) Pulse Ox O2 Delivery O2 Flow Rate FiO2 09/03/20 10:18 90 138/66 09/03/20 09:00 2.0 09/03/20 06:00 97.1 19 99 09/02/20 20:35 Nasal Cannula I&O- Last 24 Hours up to 6 AM 09/03/20 06:00 Intake Total 240 ml Output Total 250 ml Balance -10 ml Laboratory Data 24H LABS Laboratory Tests 2 09/02/20 21:01: Bedside Glucose (Misc Panel) 547*H 09/02/20 21:04: Bedside Glucose (Misc Panel) 537*H 09/02/20 21:24: Bedside Glucose Confirm (Misc) 581*H, Troponin I 0.03 09/03/20 00:21: Bedside Glucose (Misc Panel) 458H 09/03/20 05:53: Anion Gap 8, Glomerular Filtration Rate 50.5, Calcium Level 8.6L 09/03/20 08:31: Bedside Glucose (Misc Panel) 113H 09/03/20 11:56: Bedside Glucose (Misc Panel) 129H 09/03/20 16:58: Bedside Glucose (Misc Panel) 475H CBC/BMP Laboratory Tests 09/03/20 05:53 Microbiology Microbiology 09/02/20 Respiratory Virus Panel (PCR) (SANDRA) - Final, Complete 09/02/20 Blood Culture - Preliminary, Resulted No growth after 24 hours . All specim... 09/02/20 Blood Culture - Preliminary, Resulted No growth after 24 hours . All specim... COLTON LEIVA DO Sep 03, 2020 18:23
[2020-09-03] MEDS: ENOXAPARIN 30MG/0.3ML SYRINGE (J1650 PER 10MG) SC SCH ×2 (21:00→21:18)
[2020-09-03] MEDS: PIPERACILLIN/TAZOBACTAM SOD 3.375 GM in D5W MINI-BAG PLUS 50 ML IV SCH (21:19)
[2020-09-03] MEDS: ATORVASTATIN 20 MG TAB PO SCH (21:19)
[2020-09-03] MEDS: LEVEMIR (INSULIN DETEMIR) 1 UNITS/0.01ML SC SCH (21:19)
[2020-09-03] MEDS: NICOTINE 21MG/24HR 1 EA TRANSDERMAL TD SCH (21:23)
[2020-09-03] MEDS: ACETAMINOPHEN TAB 650MG DOSE (2X325MG) PO PRN (21:31)
[2020-09-03 22:00] VITALS: BP 178/76
[2020-09-04] MEDS: PIPERACILLIN/TAZOBACTAM SOD 3.375 GM in D5W MINI-BAG PLUS 50 ML IV SCH (02:40)
[2020-09-04] MEDS: LEVOTHYROXINE 75MCG TABLET (0.075MG) PO SCH (05:30)
[2020-09-04 06:00] VITALS: BP 175/83
[2020-09-04 06:36] LABS: HEMOGLOBIN 10.3 g/dl (12.0-15.5); MEAN CORPUSCULAR HEMOGLOBIN 31.1 pg (27.0-33.0); MEAN CORPUSCULAR HGB CONC 32.2 g/dl (32.0-36.5); MEAN CORPUSCULAR VOLUME 96.7 fl (80.0-96.0); PLATELET COUNT, AUTOMATED 171 10^3/uL (150-450); RED BLOOD COUNT 3.31 10^6/uL (4.00-5.40); WHITE BLOOD COUNT 15.2 10^3/uL (4.0-10.0)
[2020-09-04 06:59] LABS: ERYTHROCYTE SEDIMENTATION RATE 31 mm/hr (0-30)
[2020-09-04 07:05] LABS: C REACTIVE PROTEIN QUANTITATIV 0.6 MG/DL (0.00-0.30); CALCIUM LEVEL 8.3 MG/DL (8.8-10.2); CREATININE FOR GFR 1.51 MG/DL (0.55-1.30); GLOMERULAR FILTRATION RATE 35.8 (>39); POTASSIUM SERUM 4.7 MEQ/L (3.5-5.1)
[2020-09-04] MEDS: ADVAIR HFA 230/21MCG INHALER INH SCH ×2 (07:20→21:25)
[2020-09-04] MEDS ORDERED: PREVNAR 13 VACCINE SYRINGE IM ONE (09:00)
[2020-09-04] MEDS ORDERED: CEFEPIME HCL 1 GM in D5W MINI-BAG PLUS 50 ML IV SCH (09:00)
[2020-09-04] MEDS: HumaLOG INSULIN (NovoLOG) PER UNIT SC SCH ×4 (09:13→21:45)
[2020-09-04] MEDS: CLOPIDOGREL 75 MG TAB PO SCH (09:14)
[2020-09-04] MEDS: predniSONE 20 MG TAB PO SCH (09:14)
[2020-09-04] MEDS: NICOTINE 21MG/24HR 1 EA TRANSDERMAL TD SCH (09:14)
[2020-09-04] MEDS: GABAPENTIN 100 MG CAP PO SCH (09:14)
[2020-09-04] MEDS: DULoxetine 30 MG CAP (CYMBALTA) PO SCH (09:15)
[2020-09-04] MEDS: **hydrALAZINE** 50 MG TAB PO SCH ×2 (09:15→20:41)
[2020-09-04] MEDS: FLUCONAZOLE 50MG TABLET PO SCH (12:08)
--- NOTE | 2020-09-04 15:11 | IPNPDOC ---
Subjective Date Seen The patient was seen on 09/04/20. Subjective Chief Complaint/HPI Mrs. Ponce is a 75 year old female with nocturnal hypoxia on 2L at night, COPD, IDDM type 2, hypertension, and hypothyroidism who is here for shortness of breath. Yesterday she had a positive blood culture, but returned as Bacillus Sp., not Anthracis. It is only in one culture. She has had no fever. Leukocytosis is from steroids. Most likely a contaminant. Antibiotics were discontinued. Otherwise, she denies chest pain. Dyspnea is improving. Objective Physical Examination General Exam: Positive: Alert, Cooperative Eye Exam: Negative: Sclera icteric ENT Exam: Positive: Atraumatic Neck Exam: Positive: Supple Chest Exam: Positive: Diminished Heart Exam: Positive: Rate Normal, Regular Rhythm Abdomen Exam: Positive: Normal bowel sounds, Soft; Negative: Tenderness Extremity Exam: Positive: Edema Neuro Exam: Positive: Normal Speech Psych Exam: Positive: Mental status NL, Mood NL Assessment /Plan Assessment Mrs. Ponce is a 75 year old female with nocturnal hypoxia on 2L at night, COPD, IDDM type 2, hypertension, and hypothyroidism who is here for shortness of breath. Most likely SOB from COPD exacerbation. Possibly have mild acute CHF. Her singular positive blood culture is most likely a contaminant. No antibiotics required. Plan/VTE VTE Prophylaxis Ordered?: Yes Plan 1. Acute COPD exacerbation -Continue with PO prednisone -Continue with inhaler -Continue with PRN duonebs 2. Acute diastolic CHF -Echocardiogram 02/2018 demonstrates EF 60% with grade 1 diastolic dysfunction -Echocardiogram ordered -Elevated BNP -Held off on further diuresis due to worsening renal function 3. Acute kidney injury -Most likely from Zosyn and lisinopril -Discontinued Zosyn and held lisinopril 4. Diabetes Mellitus type 2 -Not well controlled. Episodes of hypoglycemia and hyperglycemia -Adjusted Levemir to 15u qHS -Continue sliding scale insulin 5. Hypertension -Continue amlodipine and hydralazine. Lisinopril held due to SU 6. PVD -Continue atorvastatin and clopidogrel 7. Anxiety/depression -Continue duloxetine and PRN hydroxyzine 8. Hypothyroidism -Continue levothyroxine 9. Nicotine dependence -Restart nicotine patch 10. Bacillus sp., not anthracis blood culture contamination -Singular blood culture -No fever -Leukocytosis most likely from steroids -No antibiotics needed 11. DVT ppx -Lovenox Disposition: Patient will need to work with PFS on safe discharge plan VS, I&O, 24H, [place] Vital Signs/I&O Vital Signs Date Time Temp Pulse Resp B/P (MAP) Pulse Ox O2 Delivery O2 Flow Rate FiO2 09/04/20 09:15 130/64 09/04/20 06:00 96.9 85 20 97 Nasal Cannula 2.0 I&O- Last 24 Hours up to 6 AM 09/04/20 06:00 Intake Total 1950 ml Output Total 1750 ml Balance 200 ml Laboratory Data 24H LABS Laboratory Tests 2 09/03/20 16:58: Bedside Glucose (Misc Panel) 475H 09/03/20 20:19: Bedside Glucose (Misc Panel) 459H 09/03/20 21:00: Bedside Glucose (Misc Panel) 492H 09/04/20 06:01: Nucleated Red Blood Cells % (auto) 0.0, Erythrocyte Sedimentation Rate 31H, Anion Gap 5L, Glomerular Filtration Rate 35.8L, Calcium Level 8.3L, C-Reactive Protein, Quantitative 0.60H 09/04/20 11:51: Bedside Glucose (Misc Panel) 139H 09/04/20 13:00: Lab Scanned Report Miscellaneous Lab CBC/BMP Laboratory Tests 09/04/20 06:01 Microbiology Microbiology 09/02/20 Respiratory Virus Panel (PCR) (SANDRA) - Final, Complete 09/02/20 Blood Culture - Final, Complete Bacillus Sp., Not Anthracis 09/02/20 Blood Culture - Preliminary, Resulted No growth after 24 hours . All specim... COLTON LEIVA DO Sep 04, 2020 15:11
[2020-09-04] MEDS: hydrOXYzine 10 MG TAB PO PRN (16:03)
[2020-09-04] MEDS ORDERED: metFORMIN (GLUCOPHAGE) 500MG TAB PO SCH (18:00)
[2020-09-04] MEDS ORDERED: HumaLOG INSULIN (NovoLOG) PER UNIT SC ONE (20:05)
[2020-09-04] MEDS: ENOXAPARIN 30MG/0.3ML SYRINGE (J1650 PER 10MG) SC SCH (20:35)
[2020-09-04] MEDS: ATORVASTATIN 20 MG TAB PO SCH (20:36)
[2020-09-04] MEDS: LEVEMIR (INSULIN DETEMIR) 1 UNITS/0.01ML SC SCH (20:36)
[2020-09-04 22:00] VITALS: BP 153/66
[2020-09-05] MEDS: LEVOTHYROXINE 75MCG TABLET (0.075MG) PO SCH (05:42)
[2020-09-05 05:50] LABS: HEMATOCRIT 29.8 % (36.0-47.0); HEMOGLOBIN 9.8 g/dl (12.0-15.5); MEAN CORPUSCULAR HEMOGLOBIN 31.8 pg (27.0-33.0); MEAN CORPUSCULAR HGB CONC 32.9 g/dl (32.0-36.5); MEAN CORPUSCULAR VOLUME 96.8 fl (80.0-96.0); PLATELET COUNT, AUTOMATED 156 10^3/uL (150-450); RED BLOOD COUNT 3.08 10^6/uL (4.00-5.40); WHITE BLOOD COUNT 13.8 10^3/uL (4.0-10.0)
[2020-09-05 06:00] VITALS: BP 153/70
[2020-09-05 06:15] LABS: CALCIUM LEVEL 8.3 MG/DL (8.8-10.2); CREATININE FOR GFR 1.2 MG/DL (0.55-1.30); GLOMERULAR FILTRATION RATE 46.6 (>39); POTASSIUM SERUM 4.7 MEQ/L (3.5-5.1)
[2020-09-05] MEDS: HumaLOG INSULIN (NovoLOG) PER UNIT SC SCH ×4 (07:30→21:26)
[2020-09-05] MEDS: ADVAIR HFA 230/21MCG INHALER INH SCH ×2 (07:54→20:05)
[2020-09-05] MEDS: CLOPIDOGREL 75 MG TAB PO SCH (10:15)
[2020-09-05] MEDS: predniSONE 20 MG TAB PO SCH (10:15)
[2020-09-05] MEDS: DULoxetine 30 MG CAP (CYMBALTA) PO SCH (10:15)
[2020-09-05] MEDS: GABAPENTIN 100 MG CAP PO SCH (10:15)
[2020-09-05] MEDS: **hydrALAZINE** 50 MG TAB PO SCH ×2 (10:16→21:26)
[2020-09-05] MEDS: NICOTINE 21MG/24HR 1 EA TRANSDERMAL TD SCH (10:17)
--- NOTE | 2020-09-05 13:27 | IPNPDOC ---
Subjective Date Seen The patient was seen on 09/05/20. Subjective Chief Complaint/HPI Mrs. Ponce is a 75 year old female with nocturnal hypoxia on 2L at night, COPD, IDDM type 2, hypertension, and hypothyroidism who is here for shortness of breath. This morning, her breathing is improved. Denied chest pain. Objective Physical Examination General Exam: Positive: Alert, Cooperative Eye Exam: Negative: Sclera icteric ENT Exam: Positive: Atraumatic Neck Exam: Positive: Supple Chest Exam: Positive: Diminished Heart Exam: Positive: Rate Normal, Regular Rhythm Abdomen Exam: Positive: Normal bowel sounds, Soft; Negative: Tenderness Extremity Exam: Positive: Edema Neuro Exam: Positive: Normal Speech Psych Exam: Positive: Mental status NL, Mood NL Assessment /Plan Assessment Mrs. Ponce is a 75 year old female with nocturnal hypoxia on 2L at night, COPD, IDDM type 2, hypertension, and hypothyroidism who is here for shortness of breath. Most likely SOB from COPD exacerbation. Possibly have mild acute CHF. Her singular positive blood culture is most likely a contaminant. No antibiotics required. Plan/VTE VTE Prophylaxis Ordered?: Yes Plan 1. Acute COPD exacerbation -Continue with PO prednisone. Will start slow taper of prednisone -Continue with inhaler -Continue with PRN duonebs 2. Acute diastolic CHF -Echocardiogram 02/2018 demonstrates EF 60% with grade 1 diastolic dysfunction -Echocardiogram ordered -Elevated BNP -Held off on further diuresis due to worsening renal function 3. Acute kidney injury -Most likely from Zosyn and lisinopril -Discontinued Zosyn and held lisinopril -Renal function improved 4. Diabetes Mellitus type 2 -Not well controlled. Episodes of hypoglycemia and hyperglycemia -Adjusted Levemir to 15u qHS -Continue sliding scale insulin 5. Hypertension -Continue amlodipine and hydralazine. Lisinopril held due to SU 6. PVD -Continue atorvastatin and clopidogrel 7. Anxiety/depression -Continue duloxetine and PRN hydroxyzine 8. Hypothyroidism -Continue levothyroxine 9. Nicotine dependence -Restart nicotine patch 10. Bacillus sp., not anthracis blood culture contamination -Singular blood culture -No fever -Leukocytosis most likely from steroids -No antibiotics needed 11. DVT ppx -Lovenox Disposition: Patient will need to work with PFS on safe discharge plan VS, I&O, 24H, Fishbone Vital Signs/I&O Vital Signs Date Time Temp Pulse Resp B/P (MAP) Pulse Ox O2 Delivery O2 Flow Rate FiO2 09/05/20 12:28 2.0 09/05/20 10:16 92 132/62 09/05/20 06:00 98.3 16 100 Nasal Cannula I&O- Last 24 Hours up to 6 AM 09/05/20 06:00 Intake Total 830 ml Output Total 450 ml Balance 380 ml Laboratory Data 24H LABS Laboratory Tests 2 09/04/20 17:23: Bedside Glucose (Misc Panel) 516*H 09/04/20 18:05: Bedside Glucose Confirm (Misc) 553*H 09/04/20 19:29: Bedside Glucose (Misc Panel) 560*H 09/04/20 21:40: Bedside Glucose (Misc Panel) 451H 09/05/20 05:36: Nucleated Red Blood Cells % (auto) 0.0, Anion Gap 3L, Glomerular Filtration Rate 46.6, Calcium Level 8.3L 09/05/20 11:40: Bedside Glucose (Misc Panel) 271H CBC/BMP Laboratory Tests 09/05/20 05:36 Microbiology Microbiology 09/02/20 Respiratory Virus Panel (PCR) ([facility]) - Final, Complete 09/02/20 Blood Culture - Final, Complete Bacillus Sp., Not Anthracis 09/02/20 Blood Culture - Preliminary, Resulted No Growth after 48 hours. All Specime... COLTON LEIVA DO Sep 05, 2020 13:27
[2020-09-05 14:00] VITALS: BP 153/70
[2020-09-05] MEDS ORDERED: HumaLOG INSULIN (NovoLOG) PER UNIT SC ONE ×3 (19:00→22:40)
[2020-09-05] MEDS: ENOXAPARIN 30MG/0.3ML SYRINGE (J1650 PER 10MG) SC SCH (21:00)
[2020-09-05] MEDS: ATORVASTATIN 20 MG TAB PO SCH (21:25)
[2020-09-05] MEDS: LEVEMIR (INSULIN DETEMIR) 1 UNITS/0.01ML SC SCH (21:26)
[2020-09-05 22:00] VITALS: BP 162/72
[2020-09-06] MEDS: hydrOXYzine 10 MG TAB PO PRN ×2 (00:45→21:39)
--- NOTE | 2020-09-06 03:21 | IPNPDOC ---
Text Note Date of Service significant event 09/06/20. NOTE Hypoglycemia 27 with 0300 check. Pt a/ox3, able to take PO and reports "feeling shaky". Hypoglycemia protocol initiated- plan for 1/2 amp d50. Recheck 15 minutes and 1 hour per protocol. Continue to monitor pt. Diabetes education and regimen adjustment to follow accordingly. WCTM. VS,Fishbone, I+O VS, Fishbone, I+O Laboratory Tests 09/05/20 05:36 Vital Signs Date Time Temp Pulse Resp B/P (MAP) Pulse Ox O2 Delivery O2 Flow Rate FiO2 09/05/20 22:00 97.3 105 18 162/72 (102) 95 Nasal Cannula 2.0 I&O- Last 24 Hours up to 6 AM 09/06/20 06:00 Intake Total 1920 ml Output Total 1000 ml Balance 920 ml AMA MARTIN NP Sep 06, 2020 03:21
[2020-09-06] MEDS: LEVOTHYROXINE 75MCG TABLET (0.075MG) PO SCH (05:18)
[2020-09-06 06:00] VITALS: BP 150/78
[2020-09-06 06:15] LABS: HEMATOCRIT 29.4 % (36.0-47.0); HEMOGLOBIN 9.6 g/dl (12.0-15.5); MEAN CORPUSCULAR HEMOGLOBIN 31.3 pg (27.0-33.0); MEAN CORPUSCULAR HGB CONC 32.7 g/dl (32.0-36.5); MEAN CORPUSCULAR VOLUME 95.8 fl (80.0-96.0); PLATELET COUNT, AUTOMATED 160 10^3/uL (150-450); RED BLOOD COUNT 3.07 10^6/uL (4.00-5.40); WHITE BLOOD COUNT 11.7 10^3/uL (4.0-10.0)
[2020-09-06 06:42] LABS: BLOOD UREA NITROGEN 40 MG/DL (7-18); CALCIUM LEVEL 8.2 MG/DL (8.8-10.2); CARBON DIOXIDE LEVEL 26 MEQ/L (21-32); CHLORIDE LEVEL 107 MEQ/L (98-107); CREATININE FOR GFR 0.95 MG/DL (0.55-1.30); GLOMERULAR FILTRATION RATE > 60.0 (>39); GLUCOSE, FASTING 195 MG/DL (70-100); SODIUM LEVEL 138 MEQ/L (136-145)
[2020-09-06] MEDS: ADVAIR HFA 230/21MCG INHALER INH SCH ×2 (07:36→19:24)
--- NOTE | 2020-09-06 09:45 | IPNPDOC ---
Subjective Date Seen The patient was seen on 09/06/20. Subjective Chief Complaint/HPI Mrs. Ponce is a 75 year old female with nocturnal hypoxia on 2L at night, COPD, IDDM type 2, hypertension, and hypothyroidism who is here for shortness of breath. Overnight, she had difficulty controlling her blood glucose. This morning, she feels about the same. Denies chest pain or worsening dyspnea. Lungs were clear. Will have dietary to speak with her about diabetes. Otherwise, PFS is working on a discharge plan where her friend from [place] stays with her. Patient will be made ALC today. Objective Physical Examination General Exam: Positive: Alert, Cooperative Eye Exam: Negative: Sclera icteric ENT Exam: Positive: Atraumatic Neck Exam: Positive: Supple Chest Exam: Positive: Clear to auscultation; Negative: Rales, Rhonchi, Wheezing Heart Exam: Positive: Rate Normal, Regular Rhythm Abdomen Exam: Positive: Normal bowel sounds, Soft; Negative: Tenderness Extremity Exam: Positive: Edema Neuro Exam: Positive: Normal Speech Psych Exam: Positive: Mental status NL, Mood NL Assessment /Plan Assessment Mrs. Ponce is a 75 year old female with nocturnal hypoxia on 2L at night, COPD, IDDM type 2, hypertension, and hypothyroidism who is here for shortness of breath. Most likely SOB from COPD exacerbation. Possibly have mild acute CHF. Her singular positive blood culture is most likely a contaminant. No antibiotics required. Plan/VTE VTE Prophylaxis Ordered?: Yes Plan 1. Acute COPD exacerbation -Continue with PO prednisone. Will start slow taper of prednisone -Continue with inhaler -Continue with PRN duonebs 2. Acute diastolic CHF -Echocardiogram 02/2018 demonstrates EF 60% with grade 1 diastolic dysfunction -Echocardiogram ordered -Elevated BNP -Held off on further diuresis due to worsening renal function 3. Acute kidney injury -Most likely from Zosyn and lisinopril -Discontinued Zosyn and held lisinopril -Renal function improved 4. Diabetes Mellitus type 2 -Not well controlled. Episodes of hypoglycemia and hyperglycemia -Adjusted Levemir to 15u qHS -Continue sliding scale insulin 5. Hypertension -Continue amlodipine and hydralazine. Lisinopril held due to SU 6. PVD -Continue atorvastatin and clopidogrel 7. Anxiety/depression -Continue duloxetine and PRN hydroxyzine 8. Hypothyroidism -Continue levothyroxine 9. Nicotine dependence -Restart nicotine patch 10. Bacillus sp., not anthracis blood culture contamination -Singular blood culture -No fever -Leukocytosis most likely from steroids -No antibiotics needed 11. DVT ppx -Lovenox Disposition: PFS working on safe discharge plan. Will make patient ALC today. VS, I&O, 24H, Fishbone Vital Signs/I&O Vital Signs Date Time Temp Pulse Resp B/P (MAP) Pulse Ox O2 Delivery O2 Flow Rate FiO2 09/06/20 06:00 98.0 95 20 150/78 (102) 98 Room Air 09/05/20 22:00 2.0 I&O- Last 24 Hours up to 6 AM 09/06/20 06:00 Intake Total 2220 ml Output Total 1000 ml Balance 1220 ml Laboratory Data 24H LABS Laboratory Tests 2 09/05/20 11:40: Bedside Glucose (Misc Panel) 271H 09/05/20 16:46: Bedside Glucose (Misc Panel) 504*H 09/05/20 16:53: Bedside Glucose (Misc Panel) 507*H 09/05/20 17:12: Bedside Glucose Confirm (Misc) 563*H 09/05/20 18:38: Bedside Glucose (Misc Panel) 580*H 09/05/20 20:01: Bedside Glucose (Misc Panel) 559*H 09/05/20 22:32: Bedside Glucose (Misc Panel) 408H 09/06/20 00:47: Bedside Glucose (Misc Panel) 127H 09/06/20 03:08: Bedside Glucose (Misc Panel) 27*L 09/06/20 03:18: Bedside Glucose Confirm (Misc) 39*L 09/06/20 03:42: Bedside Glucose (Misc Panel) 161H 09/06/20 05:51: Nucleated Red Blood Cells % (auto) 0.0, Anion Gap 5L, Glomerular Filtration Rate > 60.0, Calcium Level 8.2L CBC/BMP Laboratory Tests 09/06/20 05:51 Microbiology Microbiology 09/02/20 Respiratory Virus Panel (PCR) ([facility]) - Final, Complete 09/02/20 Blood Culture - Final, Complete Bacillus Sp., Not Anthracis 09/02/20 Blood Culture - Preliminary, Resulted No Growth after 72 hours. All specime... COLTON LEIVA DO Sep 06, 2020 09:45
[2020-09-06] MEDS: HumaLOG INSULIN (NovoLOG) PER UNIT SC SCH ×4 (09:53→21:40)
[2020-09-06] MEDS: NICOTINE 21MG/24HR 1 EA TRANSDERMAL TD SCH (09:53)
[2020-09-06] MEDS: **hydrALAZINE** 50 MG TAB PO SCH ×2 (09:53→21:45)
[2020-09-06] MEDS: CLOPIDOGREL 75 MG TAB PO SCH (09:54)
[2020-09-06] MEDS: DULoxetine 30 MG CAP (CYMBALTA) PO SCH (09:54)
[2020-09-06] MEDS: GABAPENTIN 100 MG CAP PO SCH (09:54)
[2020-09-06] MEDS: predniSONE 10 MG TAB PO SCH (09:54)
[2020-09-06] MEDS: ATORVASTATIN 20 MG TAB PO SCH (21:39)
[2020-09-06] MEDS: ENOXAPARIN 30MG/0.3ML SYRINGE (J1650 PER 10MG) SC SCH (21:40)
[2020-09-06] MEDS: LEVEMIR (INSULIN DETEMIR) 1 UNITS/0.01ML SC SCH (21:41)
[2020-09-07] MEDS: LEVOTHYROXINE 75MCG TABLET (0.075MG) PO SCH (05:15)
[2020-09-07 06:00] VITALS: BP 144/69
[2020-09-07 06:11] LABS: HEMATOCRIT 34.1 % (36.0-47.0); MEAN CORPUSCULAR HEMOGLOBIN 31.4 pg (27.0-33.0); MEAN CORPUSCULAR HGB CONC 32.3 g/dl (32.0-36.5); MEAN CORPUSCULAR VOLUME 97.4 fl (80.0-96.0); PLATELET COUNT, AUTOMATED 199 10^3/uL (150-450); WHITE BLOOD COUNT 13.7 10^3/uL (4.0-10.0)
[2020-09-07 06:33] LABS: CALCIUM LEVEL 8.6 MG/DL (8.8-10.2); GLOMERULAR FILTRATION RATE 57.5 (>39); POTASSIUM SERUM 4.7 MEQ/L (3.5-5.1)
[2020-09-07] MEDS: ADVAIR HFA 230/21MCG INHALER INH SCH ×2 (07:25→19:49)
[2020-09-07] MEDS: NICOTINE 21MG/24HR 1 EA TRANSDERMAL TD SCH (09:17)
[2020-09-07] MEDS: GABAPENTIN 100 MG CAP PO SCH (09:17)
[2020-09-07] MEDS: CLOPIDOGREL 75 MG TAB PO SCH (09:17)
[2020-09-07] MEDS: predniSONE 10 MG TAB PO SCH (09:18)
[2020-09-07] MEDS: DULoxetine 30 MG CAP (CYMBALTA) PO SCH (09:18)
[2020-09-07] MEDS: **hydrALAZINE** 50 MG TAB PO SCH ×2 (09:18→21:00)
[2020-09-07] MEDS: HumaLOG INSULIN (NovoLOG) PER UNIT SC SCH ×4 (09:19→21:01)
[2020-09-07] MEDS: FLUCONAZOLE 50MG TABLET PO SCH (09:26)
--- NOTE | 2020-09-07 12:02 | ECHO ---
ECHOCARDIOGRAM DATE OF PROCEDURE: 09/04/2020 Age: 75 Gender: Female Height: 62 inches Weight: 114 pounds Body Surface Area 1.51 m2 PATIENT LOCATION: [facility] Room 4216 REFERRING PHYSICIAN: MADHU BARBER DO INDICATION: CHF MEASUREMENTS: 2D Measurements: RV 3.2 cm LV 4.8 cm Septum 1.2 cm Posterior wall 1.2 cm Aortic Root 3.6 cm LA 4.1 cm LVEF 70% Doppler Measurements: AV 1.84 m/s LVOT 1.1 m/s LVOT diameter 1.8 cm MV-E 93, A 145, E/A ratio 0.6 Early mitral deceleration time 185 msec E prime medial 4.7, A prime medial 7.0, E prime lateral 5.1 Average E/E prime ratio 19/PCWP 25.4 mmHg PV 1.1 m/s Pulmonary artery acceleration time 95 msec PASP 39 mmHg IVC 2.2 cm COMMENTS: Normal sinus rhythm without intraventricular conduction disturbance. Somewhat challenging study in light of the patient's known pulmonary disease but diagnostic useful information was still obtained. M-mode and two-dimensional echocardiography was performed with pulse, continuous wave, color flow, and tissue Doppler studies. Borderline concentric left ventricular hypertrophy with hyperdynamic wall motion. Mildly dilated left atrium with Grade 1 LV diastolic dysfunction and elevated estimated mean atrial pressure. Normal right heart chamber size and motion with Doppler evidence of at least mild pulmonary hypertension. IVC size upper limits of normal with adequate respiratory collapse in keeping with central venous pressure, upper limits of normal. Normal aortic dimensions. Subtle aortic valvular sclerosis without functional abnormality. Mild mitral annular thickening but normal leaflet thickness and excursion with no posterior systolic buckling. No functional abnormality. Normal appearing tricuspid valve with trace insufficiency. No apparent intracardiac mass. There was a circumferential echo clear space suggestive of at least a small pericardial effusion but there was no sign of cardiac chamber compression. Doppler flow signals across her valvular structures did not show any respiratory variation. [facility]
[2020-09-07] MEDS: hydrOXYzine 10 MG TAB PO PRN (18:16)
[2020-09-07] MEDS: ATORVASTATIN 20 MG TAB PO SCH (20:58)
[2020-09-07] MEDS: ENOXAPARIN 30MG/0.3ML SYRINGE (J1650 PER 10MG) SC SCH (21:01)
[2020-09-08] MEDS ORDERED: MIRTAZAPINE 7.5MG PER 1/2 TABLET PO ONE (01:05)
[2020-09-08 06:00] VITALS: BP 154/69
[2020-09-08 06:26] LABS: HEMATOCRIT 29.2 % (36.0-47.0); HEMOGLOBIN 9.6 g/dl (12.0-15.5); MEAN CORPUSCULAR HEMOGLOBIN 31.3 pg (27.0-33.0); MEAN CORPUSCULAR HGB CONC 32.9 g/dl (32.0-36.5); MEAN CORPUSCULAR VOLUME 95.1 fl (80.0-96.0); PLATELET COUNT, AUTOMATED 148 10^3/uL (150-450); RED BLOOD COUNT 3.07 10^6/uL (4.00-5.40); WHITE BLOOD COUNT 7.8 10^3/uL (4.0-10.0)
[2020-09-08] MEDS: LEVOTHYROXINE 75MCG TABLET (0.075MG) PO SCH (06:26)
[2020-09-08 06:52] LABS: CALCIUM LEVEL 8.3 MG/DL (8.8-10.2); CREATININE FOR GFR 0.97 MG/DL (0.55-1.30); GLOMERULAR FILTRATION RATE 59.6 (>39); POTASSIUM SERUM 4.3 MEQ/L (3.5-5.1)
[2020-09-08] MEDS: ADVAIR HFA 230/21MCG INHALER INH SCH ×2 (07:28→17:56)
[2020-09-08] MEDS: HumaLOG INSULIN (NovoLOG) PER UNIT SC SCH ×4 (08:15→20:23)
[2020-09-08] MEDS: NICOTINE 21MG/24HR 1 EA TRANSDERMAL TD SCH (08:17)
[2020-09-08] MEDS: GABAPENTIN 100 MG CAP PO SCH (08:18)
[2020-09-08] MEDS: LEVEMIR (INSULIN DETEMIR) 1 UNITS/0.01ML SC SCH (08:18)
[2020-09-08] MEDS: **hydrALAZINE** 50 MG TAB PO SCH ×2 (08:18→20:25)
[2020-09-08] MEDS: CLOPIDOGREL 75 MG TAB PO SCH (08:18)
[2020-09-08] MEDS: DULoxetine 30 MG CAP (CYMBALTA) PO SCH (08:19)
[2020-09-08] MEDS: predniSONE 10 MG TAB PO SCH (08:19)
[2020-09-08] MEDS: hydrOXYzine 10 MG TAB PO PRN ×2 (08:27→18:11)
[2020-09-08] MEDS: ATORVASTATIN 20 MG TAB PO SCH (20:24)
[2020-09-08] MEDS: ENOXAPARIN 30MG/0.3ML SYRINGE (J1650 PER 10MG) SC SCH (20:24)
[2020-09-09] MEDS: hydrOXYzine 10 MG TAB PO PRN (01:12)
[2020-09-09 06:00] VITALS: BP 170/71
[2020-09-09] MEDS: LEVOTHYROXINE 75MCG TABLET (0.075MG) PO SCH (06:27)
[2020-09-09] MEDS: ADVAIR HFA 230/21MCG INHALER INH SCH ×2 (07:35→19:27)
[2020-09-09] MEDS: HumaLOG INSULIN (NovoLOG) PER UNIT SC SCH ×4 (09:11→21:11)
[2020-09-09] MEDS: LEVEMIR (INSULIN DETEMIR) 1 UNITS/0.01ML SC SCH (09:11)
[2020-09-09] MEDS: NICOTINE 21MG/24HR 1 EA TRANSDERMAL TD SCH (09:12)
[2020-09-09] MEDS: GABAPENTIN 100 MG CAP PO SCH (09:12)
[2020-09-09] MEDS: CLOPIDOGREL 75 MG TAB PO SCH (09:12)
[2020-09-09] MEDS: DULoxetine 30 MG CAP (CYMBALTA) PO SCH (09:12)
[2020-09-09] MEDS: predniSONE 10 MG TAB PO SCH (09:12)
[2020-09-09] MEDS: **hydrALAZINE** 50 MG TAB PO SCH ×2 (09:15→21:02)
[2020-09-09] MEDS: ENOXAPARIN 30MG/0.3ML SYRINGE (J1650 PER 10MG) SC SCH (21:01)
[2020-09-09] MEDS: ATORVASTATIN 20 MG TAB PO SCH (21:02)
[2020-09-09 22:00] VITALS: BP 164/71
[2020-09-09] MEDS: MIRTAZAPINE 7.5MG PER 1/2 TABLET PO PRN (22:36)
[2020-09-10 06:00] VITALS: BP 160/74
[2020-09-10] MEDS: LEVOTHYROXINE 75MCG TABLET (0.075MG) PO SCH (06:49)
[2020-09-10] MEDS: ADVAIR HFA 230/21MCG INHALER INH SCH ×2 (07:26→19:46)
[2020-09-10] MEDS: GABAPENTIN 100 MG CAP PO SCH (08:00)
[2020-09-10] MEDS: CLOPIDOGREL 75 MG TAB PO SCH (08:00)
[2020-09-10] MEDS: predniSONE 10 MG TAB PO SCH (08:00)
[2020-09-10] MEDS: DULoxetine 30 MG CAP (CYMBALTA) PO SCH (08:00)
[2020-09-10] MEDS: **hydrALAZINE** 50 MG TAB PO SCH ×2 (08:02→20:29)
[2020-09-10] MEDS: HumaLOG INSULIN (NovoLOG) PER UNIT SC SCH ×4 (08:03→20:28)
[2020-09-10] MEDS: NICOTINE 21MG/24HR 1 EA TRANSDERMAL TD SCH (08:03)
[2020-09-10] MEDS: LEVEMIR (INSULIN DETEMIR) 1 UNITS/0.01ML SC SCH (08:03)
[2020-09-10] MEDS: ENOXAPARIN 30MG/0.3ML SYRINGE (J1650 PER 10MG) SC SCH (20:29)
[2020-09-10] MEDS: ATORVASTATIN 20 MG TAB PO SCH (20:29)
[2020-09-10 22:00] VITALS: BP 143/69
[2020-09-10] MEDS: MIRTAZAPINE 7.5MG PER 1/2 TABLET PO PRN (23:01)
[2020-09-11 06:00] VITALS: BP 138/74
[2020-09-11] MEDS: LEVOTHYROXINE 75MCG TABLET (0.075MG) PO SCH (06:38)
[2020-09-11] MEDS: HumaLOG INSULIN (NovoLOG) PER UNIT SC SCH ×4 (08:12→21:06)
[2020-09-11] MEDS: NICOTINE 21MG/24HR 1 EA TRANSDERMAL TD SCH (08:12)
[2020-09-11] MEDS: CLOPIDOGREL 75 MG TAB PO SCH (08:13)
[2020-09-11] MEDS: GABAPENTIN 100 MG CAP PO SCH (08:13)
[2020-09-11] MEDS: LEVEMIR (INSULIN DETEMIR) 1 UNITS/0.01ML SC SCH (08:13)
[2020-09-11] MEDS: DULoxetine 30 MG CAP (CYMBALTA) PO SCH (08:13)
[2020-09-11] MEDS: predniSONE 10 MG TAB PO SCH (08:13)
[2020-09-11] MEDS: **hydrALAZINE** 50 MG TAB PO SCH ×2 (08:14→20:40)
[2020-09-11] MEDS: ADVAIR HFA 230/21MCG INHALER INH SCH ×2 (08:28→19:41)
[2020-09-11] MEDS: hydrOXYzine 10 MG TAB PO PRN (18:04)
[2020-09-11] MEDS: ATORVASTATIN 20 MG TAB PO SCH (20:37)
[2020-09-11] MEDS: ACETAMINOPHEN TAB 650MG DOSE (2X325MG) PO PRN (20:38)
[2020-09-11] MEDS: ENOXAPARIN 30MG/0.3ML SYRINGE (J1650 PER 10MG) SC SCH (20:40)
[2020-09-12] MEDS: LEVOTHYROXINE 75MCG TABLET (0.075MG) PO SCH (05:52)
[2020-09-12 06:00] VITALS: BP 149/79
[2020-09-12] MEDS: ADVAIR HFA 230/21MCG INHALER INH SCH ×2 (07:28→19:11)
[2020-09-12] MEDS: HumaLOG INSULIN (NovoLOG) PER UNIT SC SCH ×4 (08:34→21:06)
[2020-09-12] MEDS: NICOTINE 21MG/24HR 1 EA TRANSDERMAL TD SCH (08:34)
[2020-09-12] MEDS: CLOPIDOGREL 75 MG TAB PO SCH (08:35)
[2020-09-12] MEDS: LEVEMIR (INSULIN DETEMIR) 1 UNITS/0.01ML SC SCH (08:35)
[2020-09-12] MEDS: predniSONE 10 MG TAB PO SCH (08:35)
[2020-09-12] MEDS: DULoxetine 30 MG CAP (CYMBALTA) PO SCH (08:35)
[2020-09-12] MEDS: GABAPENTIN 100 MG CAP PO SCH (08:35)
[2020-09-12] MEDS: **hydrALAZINE** 50 MG TAB PO SCH ×2 (08:38→21:08)
[2020-09-12 14:00] VITALS: BP 133/67
[2020-09-12] MEDS: ENOXAPARIN 30MG/0.3ML SYRINGE (J1650 PER 10MG) SC SCH (21:07)
[2020-09-12] MEDS: ATORVASTATIN 20 MG TAB PO SCH (21:08)
[2020-09-13] MEDS: LEVOTHYROXINE 75MCG TABLET (0.075MG) PO SCH (05:45)
[2020-09-13 06:00] VITALS: BP 175/84
[2020-09-13] MEDS: ADVAIR HFA 230/21MCG INHALER INH SCH ×2 (07:22→19:52)
[2020-09-13] MEDS: HumaLOG INSULIN (NovoLOG) PER UNIT SC SCH ×4 (09:40→20:53)
[2020-09-13] MEDS: LEVEMIR (INSULIN DETEMIR) 1 UNITS/0.01ML SC SCH (09:41)
[2020-09-13] MEDS: GABAPENTIN 100 MG CAP PO SCH (09:42)
[2020-09-13] MEDS: CLOPIDOGREL 75 MG TAB PO SCH (09:42)
[2020-09-13] MEDS: predniSONE 10 MG TAB PO SCH (09:42)
[2020-09-13] MEDS: DULoxetine 30 MG CAP (CYMBALTA) PO SCH (09:42)
[2020-09-13] MEDS: **hydrALAZINE** 50 MG TAB PO SCH ×2 (09:46→20:52)
[2020-09-13] MEDS: NICOTINE 21MG/24HR 1 EA TRANSDERMAL TD SCH (09:47)
[2020-09-13 12:03] VITALS: BP 168/72
[2020-09-13] MEDS: hydrOXYzine 10 MG TAB PO PRN (15:59)
[2020-09-13 17:50] VITALS: BP 172/66
[2020-09-13] MEDS: **hydrALAZINE HCL** 25 MG TAB PO PRN (17:59)
[2020-09-13] MEDS: lisinopriL 40 MG TAB PO SCH (20:51)
[2020-09-13] MEDS: ATORVASTATIN 20 MG TAB PO SCH (20:52)
[2020-09-13] MEDS: ENOXAPARIN 30MG/0.3ML SYRINGE (J1650 PER 10MG) SC SCH (20:53)
[2020-09-14] MEDS: LEVOTHYROXINE 75MCG TABLET (0.075MG) PO SCH (05:37)
[2020-09-14 06:00] VITALS: BP 152/69
[2020-09-14] MEDS: ADVAIR HFA 230/21MCG INHALER INH SCH ×2 (07:38→19:23)
[2020-09-14] MEDS: NICOTINE 21MG/24HR 1 EA TRANSDERMAL TD SCH (08:28)
[2020-09-14] MEDS: LEVEMIR (INSULIN DETEMIR) 1 UNITS/0.01ML SC SCH (08:29)
[2020-09-14] MEDS: GABAPENTIN 100 MG CAP PO SCH (08:30)
[2020-09-14] MEDS: **hydrALAZINE** 50 MG TAB PO SCH ×2 (08:30→20:36)
[2020-09-14] MEDS: predniSONE 10 MG TAB PO SCH (08:30)
[2020-09-14] MEDS: lisinopriL 40 MG TAB PO SCH (08:30)
[2020-09-14] MEDS: HumaLOG INSULIN (NovoLOG) PER UNIT SC SCH ×4 (08:30→20:36)
[2020-09-14] MEDS: CLOPIDOGREL 75 MG TAB PO SCH (08:30)
[2020-09-14] MEDS: DULoxetine 30 MG CAP (CYMBALTA) PO SCH (08:30)
[2020-09-14] MEDS: hydrOXYzine 10 MG TAB PO PRN (17:08)
[2020-09-14] MEDS: ENOXAPARIN 30MG/0.3ML SYRINGE (J1650 PER 10MG) SC SCH (20:35)
[2020-09-14] MEDS: ATORVASTATIN 20 MG TAB PO SCH (20:36)
[2020-09-14] MEDS ORDERED: PERCOCET 5MG/325MG TAB PO ONE (20:45)
[2020-09-15] MEDS: LEVOTHYROXINE 75MCG TABLET (0.075MG) PO SCH (05:54)
[2020-09-15] MEDS: **hydrALAZINE HCL** 25 MG TAB PO PRN (05:55)
[2020-09-15 06:00] VITALS: BP 177/70
[2020-09-15] MEDS: ADVAIR HFA 230/21MCG INHALER INH SCH ×2 (07:13→19:36)
[2020-09-15] MEDS: GABAPENTIN 100 MG CAP PO SCH (08:34)
[2020-09-15] MEDS: CLOPIDOGREL 75 MG TAB PO SCH (08:34)
[2020-09-15] MEDS: DULoxetine 30 MG CAP (CYMBALTA) PO SCH (08:34)
[2020-09-15] MEDS: lisinopriL 40 MG TAB PO SCH (08:34)
[2020-09-15] MEDS: HumaLOG INSULIN (NovoLOG) PER UNIT SC SCH ×4 (08:35→21:00)
[2020-09-15] MEDS: **hydrALAZINE** 50 MG TAB PO SCH ×2 (08:35→21:52)
[2020-09-15] MEDS: LEVEMIR (INSULIN DETEMIR) 1 UNITS/0.01ML SC SCH (08:36)
[2020-09-15] MEDS: NICOTINE 21MG/24HR 1 EA TRANSDERMAL TD SCH (08:39)
[2020-09-15] MEDS: hydrOXYzine 10 MG TAB PO PRN (19:03)
[2020-09-15] MEDS ORDERED: IBUPROFEN 800 MG TAB PO ONE (20:00)
[2020-09-15] MEDS: MIRTAZAPINE 7.5MG PER 1/2 TABLET PO PRN (21:51)
[2020-09-15] MEDS: ATORVASTATIN 20 MG TAB PO SCH (21:51)
[2020-09-15] MEDS: ENOXAPARIN 30MG/0.3ML SYRINGE (J1650 PER 10MG) SC SCH (21:52)
[2020-09-16 06:00] VITALS: BP 104/60
[2020-09-16] MEDS: LEVOTHYROXINE 75MCG TABLET (0.075MG) PO SCH (06:24)
[2020-09-16] MEDS: ADVAIR HFA 230/21MCG INHALER INH SCH ×2 (07:43→20:00)
[2020-09-16] MEDS: LEVEMIR (INSULIN DETEMIR) 1 UNITS/0.01ML SC SCH (08:24)
[2020-09-16] MEDS: HumaLOG INSULIN (NovoLOG) PER UNIT SC SCH ×4 (08:24→20:39)
[2020-09-16] MEDS: DULoxetine 30 MG CAP (CYMBALTA) PO SCH (08:39)
[2020-09-16] MEDS: CLOPIDOGREL 75 MG TAB PO SCH (08:39)
[2020-09-16] MEDS: GABAPENTIN 100 MG CAP PO SCH (08:39)
[2020-09-16] MEDS: **hydrALAZINE** 50 MG TAB PO SCH ×3 (08:39→20:38)
[2020-09-16] MEDS: lisinopriL 40 MG TAB PO SCH (08:39)
[2020-09-16] MEDS: NICOTINE 21MG/24HR 1 EA TRANSDERMAL TD SCH (08:40)
[2020-09-16] MEDS ORDERED: PERCOCET 5MG/325MG TAB PO ONE (13:00)
[2020-09-16] MEDS: hydrOXYzine 10 MG TAB PO PRN (15:52)
--- NOTE | 2020-09-16 16:12 | IPNPDOC ---
Subjective Date Seen The patient was seen on 09/16/20. Subjective Chief Complaint/HPI Patient seen and examined at bedside this morning. She had no acute complaints. She denies headaches, chest pain, abdominal pain, shortness of breath, problems with urination and bowel movements. Objective Physical Examination General Exam: Positive: Alert, Cooperative Eye Exam: Negative: Sclera icteric ENT Exam: Positive: Atraumatic Neck Exam: Positive: Supple Chest Exam: Positive: Clear to auscultation; Negative: Rales, Rhonchi, Wheezing Heart Exam: Positive: Rate Normal, Regular Rhythm Abdomen Exam: Positive: Normal bowel sounds, Soft; Negative: Tenderness Extremity Exam: Positive: Edema Neuro Exam: Positive: Normal Speech Psych Exam: Positive: Mental status NL, Mood NL Other physical findings General: Lying in bed, no acute distress Head/Neck/Throat: Trachea midline, mucous membranes moist Eyes: Sclera anicteric, no erythema or discharge appreciated bilaterally Thorax: Very mild wheezing appreciated bilaterally in the mid lung ferrell Cardiovascular: Normal rate, regular rhythm, normal S1, S2; no S3, S4, rubs/gallops/murmurs Abdomen: Bowel sounds present, soft/nontender/nondistended Genitourinary: No CVA tenderness, no Rand in place Musculoskeletal: Moving all extremities, no edema Skin: Warm, dry Neurologic: AAOx3, speech fluent and goal-directed, no focal deficits, grossly intact Assessment /Plan Plan/VTE VTE Prophylaxis Ordered?: Yes Plan #COPD exacerbation -Resolved -No signs of acute exacerbation. Continue with Advair. As needed duo nebs on board if required. #Acute on chronic diastolic heart failure -Resolved. HFpEF with LVEF of 60% in 02/2018. #Acute kidney injury -Resolved. #Diabetes Mellitus type 2 -Continue with basal coverage and insulin sliding scale. Hypoglycemic protocol in place. Accu-Cheks before meals at bedtime. #Hypertension -Uncontrolled despite being started on ambulatory amlodipine and lisinopril. Hydralazine was added, will increase frequency due to reduced hydralazine's half-life, hopefully this would give better control. #PVD -Continue atorvastatin and clopidogrel #Anxiety/depression -Continue duloxetine and PRN hydroxyzine #Hypothyroidism -Continue levothyroxine #Nicotine dependence -Restart nicotine patch #DVT ppx -Lovenox Disposition: PFS working on safe discharge plan. Will make patient ALC today. VS, I&O, 24H, Fishbone Vital Signs/I&O Vital Signs Date Time Temp Pulse Resp B/P (MAP) Pulse Ox O2 Delivery O2 Flow Rate FiO2 09/16/20 13:13 18 09/16/20 08:39 100 168/72 09/16/20 06:00 98.6 85 Room Air 09/15/20 21:00 3.0 I&O- Last 24 Hours up to 6 AM 09/16/20 06:00 Intake Total 1860 ml Balance 1860 ml Laboratory Data 24H LABS Laboratory Tests 2 09/15/20 16:59: Bedside Glucose (Misc Panel) 167H 09/15/20 21:37: Bedside Glucose (Misc Panel) 236H 09/16/20 07:22: Bedside Glucose (Misc Panel) 306H 09/16/20 11:47: Bedside Glucose (Misc Panel) 175H DUKE URIBE M.D. Sep 16, 2020 16:04
[2020-09-16] MEDS: ATORVASTATIN 20 MG TAB PO SCH (20:38)
[2020-09-16] MEDS: ENOXAPARIN 30MG/0.3ML SYRINGE (J1650 PER 10MG) SC SCH (20:39)
[2020-09-16] MEDS ORDERED: RAMELTEON 8 MG TAB (ROZEREM) PO PRN (20:55)
[2020-09-17 06:00] VITALS: BP 167/71
[2020-09-17] MEDS: LEVOTHYROXINE 75MCG TABLET (0.075MG) PO SCH (06:16)
[2020-09-17 06:17] LABS: HEMATOCRIT 27.4 % (36.0-47.0); HEMOGLOBIN 8.6 g/dl (12.0-15.5); MEAN CORPUSCULAR HEMOGLOBIN 30.8 pg (27.0-33.0); MEAN CORPUSCULAR HGB CONC 31.4 g/dl (32.0-36.5); MEAN CORPUSCULAR VOLUME 98.2 fl (80.0-96.0); PLATELET COUNT, AUTOMATED 117 10^3/uL (150-450); RED BLOOD COUNT 2.79 10^6/uL (4.00-5.40); WHITE BLOOD COUNT 10.2 10^3/uL (4.0-10.0)
[2020-09-17 06:41] LABS: BLOOD UREA NITROGEN 37 MG/DL (7-18); CALCIUM LEVEL 8.2 MG/DL (8.8-10.2); CARBON DIOXIDE LEVEL 25 MEQ/L (21-32); CHLORIDE LEVEL 110 MEQ/L (98-107); CREATININE FOR GFR 0.95 MG/DL (0.55-1.30); GLOMERULAR FILTRATION RATE > 60.0 (>39); GLUCOSE, FASTING 212 MG/DL (70-100); PHOSPHORUS LEVEL 4.1 MG/DL (2.5-4.9); POTASSIUM SERUM 4.4 MEQ/L (3.5-5.1); SODIUM LEVEL 142 MEQ/L (136-145)
[2020-09-17] MEDS: ADVAIR HFA 230/21MCG INHALER INH SCH ×2 (07:28→19:32)
[2020-09-17] MEDS: CLOPIDOGREL 75 MG TAB PO SCH (08:39)
[2020-09-17] MEDS: DULoxetine 30 MG CAP (CYMBALTA) PO SCH (08:39)
[2020-09-17] MEDS: GABAPENTIN 100 MG CAP PO SCH (08:39)
[2020-09-17] MEDS: **hydrALAZINE** 50 MG TAB PO SCH ×3 (08:42→19:33)
[2020-09-17] MEDS: lisinopriL 40 MG TAB PO SCH (08:43)
[2020-09-17] MEDS: NICOTINE 21MG/24HR 1 EA TRANSDERMAL TD SCH (08:43)
[2020-09-17] MEDS: LEVEMIR (INSULIN DETEMIR) 1 UNITS/0.01ML SC SCH (08:44)
[2020-09-17] MEDS: HumaLOG INSULIN (NovoLOG) PER UNIT SC SCH ×4 (08:44→20:48)
[2020-09-17] MEDS: ACETAMINOPHEN TAB 650MG DOSE (2X325MG) PO PRN (16:09)
[2020-09-17] MEDS: ATORVASTATIN 20 MG TAB PO SCH (19:33)
[2020-09-17] MEDS: ENOXAPARIN 30MG/0.3ML SYRINGE (J1650 PER 10MG) SC SCH (19:34)
[2020-09-18] MEDS: IPRATROPIUM 0.5MG/ALBUTEROL 2.5MG INH SOL UD 3ML (DUONEB) NEB PRN ×2 (04:14→15:19)
[2020-09-18] MEDS: hydrOXYzine 10 MG TAB PO PRN (04:22)
[2020-09-18] MEDS: LEVOTHYROXINE 75MCG TABLET (0.075MG) PO SCH (04:22)
[2020-09-18 06:00] VITALS: BP 160/74
[2020-09-18] MEDS: ADVAIR HFA 230/21MCG INHALER INH SCH (07:53)
[2020-09-18] MEDS: GABAPENTIN 100 MG CAP PO SCH (08:50)
[2020-09-18] MEDS: NICOTINE 21MG/24HR 1 EA TRANSDERMAL TD SCH (08:50)
[2020-09-18] MEDS: DULoxetine 30 MG CAP (CYMBALTA) PO SCH (08:50)
[2020-09-18] MEDS: HumaLOG INSULIN (NovoLOG) PER UNIT SC SCH ×4 (08:51→20:48)
[2020-09-18] MEDS: LEVEMIR (INSULIN DETEMIR) 1 UNITS/0.01ML SC SCH (08:51)
[2020-09-18] MEDS: lisinopriL 40 MG TAB PO SCH (08:53)
[2020-09-18] MEDS: CLOPIDOGREL 75 MG TAB PO SCH (08:54)
[2020-09-18] MEDS: **hydrALAZINE** 50 MG TAB PO SCH ×3 (08:54→20:49)
[2020-09-18] MEDS ORDERED: methylPREDNISolone 125MG 2ML VIAL IV ONE (15:25)
[2020-09-18] MEDS ORDERED: ALBUTEROL SULFATE 2.5 MG/0.5 ML INH NEB SOLN NEB PRN (16:25)
--- NOTE | 2020-09-18 16:29 | IPNPDOC ---
Subjective Date Seen The patient was seen on 09/18/20. Subjective Chief Complaint/HPI Patient was seen and examined at bedside. She reports difficulty with breathing and had increasing oxygen requirements. She denies chest pain, palpitations, abdominal pain, nausea, vomiting, problems with urination or bowel movements Objective Physical Examination Other physical findings General: Lying in bed, no acute distress Head/Neck/Throat: Trachea midline, mucous membranes moist Eyes: Sclera anicteric, no erythema or discharge appreciated bilateral Thorax: Bronchospastic and bilateral wheezes appreciated Cardiovascular: Normal rate, regular rhythm, normal S1, S2; bilateral lower extremity edema Abdomen: Bowel sounds present, soft/nontender/nondistended Genitourinary: No CVA tenderness, no Rand in place Musculoskeletal: Moving all extremities, no edema Skin: Warm, dry Neurologic: AAOx3, speech fluent and goal-directed, no focal deficits, grossly intact Assessment /Plan Plan/VTE VTE Prophylaxis Ordered?: Yes Plan #COPD exacerbation -Back in COPD exacerbation. Will hold ambulatory inhalers. Start DuoNeb scheduled. Solu-Medrol. Albuterol as needed. ABG to establish baseline and assess c02. #Acute on chronic diastolic heart failure -HFpEF with LVEF of 60% in 02/2018. Mild crackles appreciated. Will start furosemide 40 mg IV daily. #Acute kidney injury -Resolved. #Diabetes Mellitus type 2 -Continue with basal coverage and insulin sliding scale. Hypoglycemic protocol in place. Accu-Cheks before meals at bedtime. #Hypertension -Uncontrolled despite being started on ambulatory amlodipine and lisinopril. Hydralazine was added for better blood pressure control. #PVD -Continue atorvastatin and clopidogrel #Anxiety/depression -Continue duloxetine and PRN hydroxyzine #Hypothyroidism -Continue levothyroxine #Nicotine dependence -Restart nicotine patch #DVT ppx -Lovenox Disposition: Patient now acute status due to her COPD exacerbation VS, I&O, 24H, Fishbone Vital Signs/I&O Vital Signs Date Time Temp Pulse Resp B/P (MAP) Pulse Ox O2 Delivery O2 Flow Rate FiO2 09/18/20 15:48 153/67 09/18/20 10:49 3.0 09/18/20 08:55 96 09/18/20 06:00 97.3 21 95 Nasal Cannula I&O- Last 24 Hours up to 6 AM 09/18/20 06:00 Intake Total 0 ml Balance 0 ml Laboratory Data 24H LABS Laboratory Tests 2 09/17/20 16:30: Bedside Glucose (Misc Panel) 112H 09/17/20 20:23: Bedside Glucose (Misc Panel) 265H 09/18/20 05:39: Bedside Glucose (Misc Panel) 264H 09/18/20 11:32: Bedside Glucose (Misc Panel) 281H DUKE URIBE M.D. Sep 18, 2020 16:29
[2020-09-18] MEDS ORDERED: FUROSEMIDE 40MG/4ML VIAL (J1940) IV ONE (17:00)
[2020-09-18] MEDS: IPRATROPIUM 0.5MG/ALBUTEROL 2.5MG INH SOL UD 3ML (DUONEB) NEB SCH ×3 (17:29→23:23)
[2020-09-18 17:31] LABS: HEMATOCRIT 26.5 % (36.0-47.0); HEMOGLOBIN 8.7 g/dl (12.0-15.5); MEAN CORPUSCULAR HGB CONC 32.8 g/dl (32.0-36.5); MEAN CORPUSCULAR VOLUME 97.4 fl (80.0-96.0); PLATELET COUNT, AUTOMATED 135 10^3/uL (150-450); RED BLOOD COUNT 2.72 10^6/uL (4.00-5.40); WHITE BLOOD COUNT 10.3 10^3/uL (4.0-10.0)
[2020-09-18 17:44] LABS: ABG BASE EXCESS 1.6 (-2.0-2.0); ABG HCO3 25.4 MEQ/L (22.0-26.0); ABG PARTIAL PRESSURE CO2 36.7 mmHg (35.0-45.0); ABG PARTIAL PRESSURE O2 64.4 mmHg (75.0-100.0); ABG STANDARD HCO3 25.8 MEQ/L (22.0-26.0); ABG TOTAL CO2 26.5 MEQ/L (23.0-31.0); ABG pH (ARTERIAL) 7.458 UNITS (7.350-7.450)
[2020-09-18 17:54] LABS: CALCIUM LEVEL 8.4 MG/DL (8.8-10.2); CREATININE FOR GFR 0.99 MG/DL (0.55-1.30); GLOMERULAR FILTRATION RATE 58.2 (>39); MAGNESIUM LEVEL 2.1 MG/DL (1.8-2.4); PHOSPHORUS LEVEL 4.3 MG/DL (2.5-4.9); POTASSIUM SERUM 4.2 MEQ/L (3.5-5.1)
[2020-09-18 18:00] VITALS: BP 166/67
[2020-09-18] MEDS ORDERED: IPRATROPIUM HFA INHALER 12.9 GRAMS (ATROVENT HFA) INH SCH (20:00)
[2020-09-18] MEDS ORDERED: IPRATROPIUM 0.5MG/ALBUTEROL 2.5MG INH SOL UD 3ML (DUONEB) NEB SCH (20:00)
[2020-09-18] MEDS: methylPREDNISolone 125MG 2ML VIAL IV SCH (20:48)
[2020-09-18] MEDS: ENOXAPARIN 30MG/0.3ML SYRINGE (J1650 PER 10MG) SC SCH (20:49)
[2020-09-18] MEDS: ATORVASTATIN 20 MG TAB PO SCH (20:49)
[2020-09-19] MEDS: IPRATROPIUM 0.5MG/ALBUTEROL 2.5MG INH SOL UD 3ML (DUONEB) NEB SCH ×3 (03:29→11:27)
[2020-09-19] MEDS: methylPREDNISolone 125MG 2ML VIAL IV SCH (03:36)
[2020-09-19 04:42] VITALS: BP 144/65
[2020-09-19 05:58] LABS: HEMATOCRIT 27.9 % (36.0-47.0); HEMOGLOBIN 8.9 g/dl (12.0-15.5); MEAN CORPUSCULAR HEMOGLOBIN 31.4 pg (27.0-33.0); MEAN CORPUSCULAR HGB CONC 31.9 g/dl (32.0-36.5); MEAN CORPUSCULAR VOLUME 98.6 fl (80.0-96.0); PLATELET COUNT, AUTOMATED 138 10^3/uL (150-450); RED BLOOD COUNT 2.83 10^6/uL (4.00-5.40)
[2020-09-19] MEDS: LEVOTHYROXINE 75MCG TABLET (0.075MG) PO SCH (06:20)
[2020-09-19 06:38] LABS: CALCIUM LEVEL 8.5 MG/DL (8.8-10.2); CREATININE FOR GFR 1.25 MG/DL (0.55-1.30); GLOMERULAR FILTRATION RATE 44.5 (>39); MAGNESIUM LEVEL 2.1 MG/DL (1.8-2.4); PHOSPHORUS LEVEL 4.9 MG/DL (2.5-4.9); POTASSIUM SERUM 4.9 MEQ/L (3.5-5.1)
[2020-09-19] MEDS ORDERED: HumaLOG INSULIN (NovoLOG) PER UNIT SC STA (06:51)
[2020-09-19] MEDS: HumaLOG INSULIN (NovoLOG) PER UNIT SC SCH ×2 (07:30→12:23)
[2020-09-19] MEDS ORDERED: HumaLOG INSULIN (NovoLOG) PER UNIT SC ONE ×2 (08:55→11:15)
[2020-09-19] MEDS ORDERED: predniSONE 20 MG TAB PO SCH (09:00)
[2020-09-19] MEDS ORDERED: FUROSEMIDE 40MG/4ML VIAL (J1940) IV SCH (09:00)
[2020-09-19] MEDS ORDERED: LEVEMIR (INSULIN DETEMIR) 1 UNITS/0.01ML SC SCH (09:00)
[2020-09-19] MEDS: NICOTINE 21MG/24HR 1 EA TRANSDERMAL TD SCH (09:21)
[2020-09-19] MEDS: ACETAMINOPHEN TAB 650MG DOSE (2X325MG) PO PRN (09:24)
[2020-09-19 09:25] VITALS: BP 166/72
[2020-09-19] MEDS: DULoxetine 30 MG CAP (CYMBALTA) PO SCH (09:25)
[2020-09-19] MEDS: GABAPENTIN 100 MG CAP PO SCH (09:25)
[2020-09-19] MEDS: hydrOXYzine 10 MG TAB PO PRN (09:25)
[2020-09-19] MEDS: lisinopriL 40 MG TAB PO SCH (09:25)
[2020-09-19] MEDS: CLOPIDOGREL 75 MG TAB PO SCH (09:25)
[2020-09-19] MEDS: **hydrALAZINE** 50 MG TAB PO SCH (09:25)
--- NOTE | 2020-09-19 11:17 | IPNPDOC ---
Text Note Date of Service The patient was seen on 09/19/20. VS,Bertrambone, I+O VS, Fishbone, I+O Laboratory Tests 09/18/20 17:15 09/19/20 05:41 Vital Signs Date Time Temp Pulse Resp B/P (MAP) Pulse Ox O2 Delivery O2 Flow Rate FiO2 09/19/20 09:25 166/72 09/19/20 09:25 108 09/19/20 07:33 16 09/19/20 04:42 98.1 94 Nasal Cannula 4.0 I&O- Last 24 Hours up to 6 AM 09/19/20 06:00 Intake Total 1020 ml Output Total 825 ml Balance 195 ml BERENICE BACH MD Sep 19, 2020 11:17
[2020-09-19] MEDS ORDERED: PRED10TA2 PO (13:30)
--- NOTE | 2020-09-19 13:36 | DS.PDOC ---
Discharge Summary General Date of Admission Sep 02, 2020 at 20:35 Date of Discharge 09/19/2020 Discharge Summary PROCEDURES PERFORMED DURING STAY: [None]. ADMITTING DIAGNOSES / DISCHARGE DIAGNOSES: Shortness of breath - likely 2/2 multifactorial etiology Acute COPD Acute on chronic diastolic heart failure s/p SU on CKD RUL lung mass Hx of Bladder CA HTN PVD DLP IDDM2 with Hyperglycemia Hypothyroidism Chronic back pain Anxiety / Depression Nicotine dependence DVT prophylaxis COMPLICATIONS/CHIEF COMPLAINT: Shortness of breath HISTORY OF PRESENT ILLNESS: Patient is a 75-year-old female with a PMHx of Chronic hypoxic respiratory failure (2L at night), Severe COPD / Emphysema, RUL lung mass, Hx of Bladder CA, HTN, PVD s/p RLE stenting, DLP, IDDM2, Hypothyroidism, CKD3, Chronic back pain, Anxiety / Depression , who presented to the emergency room with complaints of shortness of breath. Patient was admitted to the hospital service for further evaluation and treatment of her suspected COPD exacerbation / CHF decompensation. Patient was seen and examined at the bedside. Patient reports that she sitting up in bed, appears to be not in any acute distress. Reports that she is not experiencing any significant change in her baseline cough. She is still on supplemental oxygen which is higher than her baseline. She denies any chest pain or palpitations. Has not experienced any nausea, vomiting, abdominal pain or diarrhea. Patient has requested to leave AGAINST MEDICAL ADVICE. Risks and benefits were discussed with patient risks included worsening of her respiratory condition, infection, allergy, disability and/or were noted. Patient had signed AMA paperwork and proceeded to leave. HOSPITAL COURSE: Shortness of breath - likely 2/2 multifactorial etiology - Acute on chronic hypoxic respiratory failure - Patient is currently on 4 L of nasal cannula oxygen which is higher than her baseline of 2 L nasal cannula oxygen at night only - Continue with management as stated below Acute COPD - There appears to be mild wheezing bilaterally - Imaging noted above - Will discontinue Solu-Medrol; Will start Prednisone - c/w Inhaled therapy as ordered - Patient has been advised to follow-up with her primary care provider within the next 7 days Acute on chronic diastolic heart failure - Clinically there appears to be trace edema of left lower extremity - Imaging noted above without any evidence of DVT - Will DC furosemide at this time - Patient has been advised to follow-up with her primary care provider within the next 7 days s/p SU on CKD RUL lung mass Hx of Bladder CA HTN - BP well controlled - c/w Amlodipine, Lisinopril, Hydralazine PVD - s/p RLE stenting - c/w Atorvastatin, Plavix DLP - c/w Atorvastatin IDDM2 with Hyperglycemia - c/w ISS and Levemir - Dose of Levemir adjusted for better glycemic control - Will reduce Corticosteroids to Prednisone Hypothyroidism - c/w Levothyroxine Chronic back pain - c/w Tylenol PRN - c/w Gabapentin Anxiety / Depression - c/w Duloxetine / Hydroxyzine Nicotine dependence - c/w Nicotine patch - Advised smoking cessation DVT prophylaxis - c/w Lovenox DISCHARGE MEDICATIONS: Please see below. ALLERGIES: Please see below. PHYSICAL EXAMINATION ON DISCHARGE: Vitals (See below) General: Lying in bed, no acute distress, comfortable, AAOx3 HEENT: NC, AT CVS: RRR, +S1S2 Lungs: Fair air entry b/l, mild wheezing appreciated bilaterally. No evidence of rhonchi or crackles Abdomen: Soft, ND, NT Extremities: LLE with trace edema, - Calf tenderness LABORATORY DATA: Please see below. IMAGING: CXR 09/02: The stable area of pleural thickening and peripheral fibrosis right upper lobe. Otherwise no acute disease.. CTA Chest 09/02: No CT evidence of pulmonary embolus. Right lateral 8th rib fracture again seen. Granulomatous calcifications. Chronic pleuroparenchymal fibrosis right upper lobe. Somewhat irregular nodular density superior segment right lower lobe could be neoplastic. Four to six-month follow-up CT study recommended. Atrophic right kidney. Concentric left ventricular hypertrophy. Vascular US 09/02: No evidence of DVT in the left lower extremity femoropopliteal veins. ACTIVITY: [As tolerated]. DISCHARGE PLAN: Follow-up with primary care provider within the next 7 days Remain compliant with treatment plan and medications Return to the ER if you experience any problems DISPOSITION: Against Medical Advice. TIME SPENT ON DISCHARGE: 35 minutes. Vital Signs/I&Os Vital Signs Date Time Temp Pulse Resp B/P (MAP) Pulse Ox O2 Delivery O2 Flow Rate FiO2 09/19/20 09:25 166/72 09/19/20 09:25 108 09/19/20 09:00 4.0 09/19/20 07:33 16 09/19/20 04:42 98.1 94 Nasal Cannula I&O- Last 24 Hours up to 6 AM 09/19/20 06:00 Intake Total 1020 ml Output Total 825 ml Balance 195 ml Laboratory Data Labs 24H Laboratory Tests 2 09/18/20 16:31: Bedside Glucose (Misc Panel) 198H 09/18/20 17:15: Nucleated Red Blood Cells % (auto) 0.0, Anion Gap 6L, Glomerular Filtration Rate 58.2, Calcium Level 8.4L, Phosphorus Level 4.3, Magnesium Level 2.1, SP-Nhq-K-Type Natriuretic Peptide 4328H 09/18/20 17:36: Blood Gas Bicarbonate Standard 25.8, Arterial Blood pH 7.458H, Arterial Blood Partial Pressure CO2 36.7, Arterial Blood Partial Pressure O2 64.4L, Arterial Blood Total CO2 26.5, Arterial Blood HCO3 25.4, Arterial Blood Base Excess 1.6, Arterial Blood Oxygen Saturation 92.0L 09/18/20 20:18: Bedside Glucose (Misc Panel) 373H 09/19/20 05:41: Nucleated Red Blood Cells % (auto) 0.0, Anion Gap 11, Glomerular Filtration Rate 44.5, Calcium Level 8.5L, Phosphorus Level 4.9, Magnesium Level 2.1 09/19/20 08:51: Bedside Glucose (Misc Panel) 594*H 09/19/20 09:24: Bedside Glucose Confirm (Misc) 672*H 09/19/20 10:48: Bedside Glucose (Misc Panel) 574*H 09/19/20 11:27: Bedside Glucose Confirm (Misc) 559*H 09/19/20 11:51: Bedside Glucose (Misc Panel) 487H CBC/BMP Laboratory Tests 09/18/20 17:15 09/19/20 05:41 FSBS Laboratory Tests Test 09/18/20 16:31 09/18/20 20:18 09/19/20 08:51 09/19/20 10:48 Range/Units Bedside Glucose (Misc Panel) 198 373 594 574 83-110 MG/DL Test 09/19/20 11:51 Range/Units Bedside Glucose (Misc Panel) 487 83-110 MG/DL Discharge Medications Scheduled Amlodipine Besylate (Amlodipine Besylate) 10 Mg Tablet, 10 MG PO DAILY, (Reported) Atorvastatin Calcium (Atorvastatin Calcium) 40 Mg Tablet, 40 MG PO QHS, (Reported) Cefdinir (Cefdinir) 300 Mg Capsule, 300 MG PO BID, (Reported) Clopidogrel Bisulfate (Plavix) 75 Mg Tablet, 75 MG PO DAILY, (Reported) Doxycycline Monohydrate (Doxycycline Monohydrate) 100 Mg Capsule, 100 MG PO BID, (Reported) Duloxetine HCl (Duloxetine HCl) 60 Mg Capsule.dr, 60 MG PO DAILY, (Reported) Fluticasone/Vilanterol (Breo Ellipta 200-25 Mcg INH) 1 Each Blst.w.dev, 1 PUFF INH DAILY, (Reported) Gabapentin (Gabapentin) 100 Mg Capsule, 100 MG PO DAILY, (Reported) Hydralazine HCl (Hydralazine HCl) 50 Mg Tablet, 50 MG PO BID, (Reported) Insulin Glargine,Hum.rec.anlog (Basaglar Kwikpen U-100) 100 Unit/1 Ml Insuln.pen, 20 UNIT SC DAILY, (Reported) Levothyroxine Sodium (Levothyroxine Sodium) 75 Mcg Tablet, 75 MCG PO DAILY, (Reported) Lisinopril (Lisinopril) 40 Mg Tablet, 40 MG PO DAILY, (Reported) Metformin HCl (Metformin HCl) 500 Mg Tablet, 500 MG PO BID, (Reported) Prednisone (Prednisone) 10 Mg Tablet, 10 MG PO TAPER, (Reported) Take 4 tabs daily x 3 days, then 3 tabs daily x 3 days, then 2 tabs daily x 3 days, then 1 tab daily x 3 days and stop Scheduled PRN Hydroxyzine HCl (Hydroxyzine HCl) 10 Mg Tablet, 10 MG PO Q8H PRN for ANXIETY, (Reported) Allergies Coded Allergies: Sulfa (Sulfonamide Antibiotics) (Verified Allergy, Mild, RASH, 07/14/20) bacitracin (Verified Allergy, Mild, RASH, 07/14/20) cortisone (Verified Allergy, Mild, RASH, 07/14/20) neomycin (Verified Allergy, Mild, RASH, 07/14/20) polymyxin B (Verified Allergy, Mild, RASH, 07/14/20) red dye (Unverified Allergy, Mild, rash OCCURRED ONCE WITH CAPSULE MED NO OTHER PROBLEMS WIT, 08/23/20) fluoxetine (Unverified Allergy, Unknown, 07/14/20) tramadol (Unverified Allergy, Unknown, 07/14/20) HAS HAD OXYCODONE BEFORE WITHOUT ISSUE BERENICE BACH MD Sep 19, 2020 13:36
[2020-09-20] MEDS ORDERED: predniSONE 20 MG TAB PO SCH (09:00)
[2020-09-20] MEDS ORDERED: FUROSEMIDE 40 MG TAB PO SCH (09:00)
== END 2020-09-19 13:15 | disposition left against medical advice (07) | DRG 291 ==
LOC: M ED 13:42 → EDBD 13:42 → M ED 20:32 → M MSPAV 20:35
PROVIDERS: ADMIT Neuromusculoskeletal Medicine & OMM; ATTEND Internal Medicine
DX: I13.0 Hypertensive heart and chronic kidney disease with heart failure and stage 1 through stage 4 chronic kidney disease, or unspecified chronic kidney disease (principal); J96.21 Acute and chronic respiratory failure with hypoxia; I50.33 Acute on chronic diastolic (congestive) heart failure; J44.1 Chronic obstructive pulmonary disease with (acute) exacerbation; N17.9 Acute kidney failure, unspecified; E78.5 Hyperlipidemia, unspecified; E11.51 Type 2 diabetes mellitus with diabetic peripheral angiopathy without gangrene; R91.8 Other nonspecific abnormal finding of lung field; R62.7 Adult failure to thrive; E03.9 Hypothyroidism, unspecified; N18.30 Chronic kidney disease, stage 3 unspecified; F17.200 Nicotine dependence, unspecified, uncomplicated; F41.9 Anxiety disorder, unspecified; F32.9 Major depressive disorder, single episode, unspecified; Z91.19 Patient's noncompliance with other medical treatment and regimen; Z85.51 Personal history of malignant neoplasm of bladder; Z79.02 Long term (current) use of antithrombotics/antiplatelets; Z79.4 Long term (current) use of insulin; Z79.899 Other long term (current) drug therapy; Z88.1 Allergy status to other antibiotic agents; Z88.2 Allergy status to sulfonamides; Z88.8 Allergy status to other drugs, medicaments and biological substances; Z88.5 Allergy status to narcotic agent; Z91.048 Other nonmedicinal substance allergy status; Z99.81 Dependence on supplemental oxygen

== ENCOUNTER 2020-09-22 09:28 | Inpatient (IN) | payer MEDICARE ==
[~2020-09-22] VITALS: Ht 157.5 cm; Wt 56.0 kg
[2020-09-22 09:55] LABS: BASO % 0.4 % (0.0-1.0); EOS # 0.2 10^3/uL (0.0-0.5); EOS % 1.4 % (0.0-3.0); HEMATOCRIT 28.9 % (36.0-47.0); HEMOGLOBIN 9.4 g/dl (12.0-15.5); LYMPH # 0.6 10^3/uL (1.5-5.0); LYMPH % 5.7 % (24.0-44.0); MEAN CORPUSCULAR HEMOGLOBIN 31.1 pg (27.0-33.0); MEAN CORPUSCULAR HGB CONC 32.5 g/dl (32.0-36.5); MEAN CORPUSCULAR VOLUME 95.7 fl (80.0-96.0); MONO # 0.4 10^3/uL (0.0-0.8); MONO % 3.6 % (2.0-8.0); NEUTROPHILS # 9.7 10^3/uL (1.5-8.5); NEUTROPHILS % 88.2 % (36.0-66.0); PLATELET COUNT, AUTOMATED 174 10^3/uL (150-450); RED BLOOD COUNT 3.02 10^6/uL (4.00-5.40)
--- NOTE | 2020-09-22 10:21 | REP ---
INDICATION: CHEST PAIN. COMPARISON: Seven 05/30/2020 TECHNIQUE: PA and lateral views FINDINGS: Chronic pleural and parenchymal changes in the right lung most pronounced in the apex and right hilum. Lungs free of active parenchymal disease. No interval change when compared with the previous study. Heart not enlarged. No failure. Pleural thickening at both costophrenic angles. Osteoporosis and spondylosis thoracic spine. Several minimal midthoracic compression fractures. IMPRESSION: Chronic changes. No interval change compared with the previous study. No active process. <Electronically signed by Ab Ochoa > 09/22/20 [id number]
[2020-09-22 10:33] LABS: ALBUMIN 2.5 GM/DL (3.2-5.2); ALT/SGPT 37 U/L (12-78); BILIRUBIN,DIRECT 0.1 MG/DL (0.0-0.2); BILIRUBIN,TOTAL 0.4 MG/DL (0.2-1.0); BLOOD UREA NITROGEN 23 MG/DL (7-18); CALCIUM LEVEL 8.2 MG/DL (8.8-10.2); CARBON DIOXIDE LEVEL 27 MEQ/L (21-32); CHLORIDE LEVEL 109 MEQ/L (98-107); CPK CREATINE PHOSPHOKINASE 50 U/L (26-192); CREATININE FOR GFR 0.85 MG/DL (0.55-1.30); FREE T4 0.97 NG/DL (0.76-1.46); GLOMERULAR FILTRATION RATE > 60.0 (>39); GLUCOSE, FASTING 304 MG/DL (70-100); NT-PRO BNP 9323 PG/ML (<450); POTASSIUM SERUM 3.9 MEQ/L (3.5-5.1); SODIUM LEVEL 143 MEQ/L (136-145); TOTAL PROTEIN 5.6 GM/DL (6.4-8.2); TROPONIN I 0.04 NG/ML (< 0.10)
[2020-09-22] MEDS ORDERED: COMBIVENT RESPIMAT 100-20MCG INHALER 4GM INH ONE (10:55)
[2020-09-22] MEDS ORDERED: **hydrALAZINE** 50 MG TAB PO ONE (10:55)
[2020-09-22] MEDS ORDERED: hydrALAZINE 20MG/ML 1ML VIAL (J0360 PER 20MG) IV ONE (10:55)
[2020-09-22] MEDS ORDERED: ISOVUE-370 76% 100ML VIAL As Ordered ONE (12:16)
--- NOTE | 2020-09-22 12:50 | REP ---
INDICATION: headache htn. COMPARISON: Comparison CT study August 17 2020.. TECHNIQUE: Helical scanning is acquired. 5 mm axial images were reformatted. Coronal MPR images were generated. FINDINGS: Bone window settings demonstrate an intact bony calvarium. There is no evidence of skull fracture or incidental bony calvarial lesion. The visualized paranasal sinuses appear clear. No intraorbital abnormality is seen. On soft tissue window setting images; the lateral, third, and fourth ventricles are normal in size and position. Barrios-white differentiation pattern is normal above and below the tentorium. There are is no evidence of intracranial hemorrhage. No mass, edema, infarction, or midline shift is seen. No extra-axial fluid collection is appreciated. There is heavy vascular calcification again noted in the distal vertebral and carotid arteries. There is moderate generalized volume loss again visible. Small-vessel changes are noted in the periventricular white matter bilaterally. There is a tiny low-density area in the head of the caudate nucleus on the right consistent with an old lacunar infarct. This is unchanged from comparison study August 17, 2020. IMPRESSION: No acute intracranial abnormality. Vascular calcification, small vessel changes, diffuse atrophy, and old lacunar infarct in the right basal ganglia.. <Electronically signed by Aravind Sumner > 09/22/20 [id number]
--- NOTE | 2020-09-22 12:50 | REP ---
INDICATION: SOB. COMPARISON: None. TECHNIQUE: Scans were obtained during contrast injection. FINDINGS: There are no pulmonary emboli. The aorta is heavily calcified. There is no evidence of dissection or aneurysm. There are infiltrates at both lung bases left larger than right.. Pleural thickening and fibrotic change noted at the right lung apex. Small bilateral pleural effusions left larger than right. mediastinal adenopathy present- multiple enlarged mediastinal lymph nodes. IMPRESSION: Small bilateral pleural effusions pitted infiltrates at both lung bases left larger than right. Chronic fibrotic changes right apex and chronic right pleural thickening. No pulmonary emboli. <Electronically signed by Ab Ochoa > 09/22/20 [id number]
[2020-09-22] MEDS ORDERED: methylPREDNISolone 125MG 2ML VIAL IV STA (13:29)
[2020-09-22] MEDS ORDERED: GLUCAGON INJ 1MG VIAL SC PRN (13:30)
[2020-09-22] MEDS ORDERED: ALBUTEROL SULFATE 2.5 MG/0.5 ML INH NEB SOLN NEB PRN (13:30)
[2020-09-22] MEDS ORDERED: hydrOXYzine 10 MG TAB PO PRN (13:30)
[2020-09-22] MEDS ORDERED: DEXTROSE 50% 50 ML SYRINGE IV PRN (13:30)
[2020-09-22] MEDS ORDERED: GLUCOSE 4GM CHEW TABLET PO PRN (13:30)
[2020-09-22] MEDS: IPRATROPIUM 0.5MG/ALBUTEROL 2.5MG INH SOL UD 3ML (DUONEB) NEB SCH ×2 (14:00→19:23)
[2020-09-22] MEDS ORDERED: LEVE1INJ5 SC (14:10)
[2020-09-22] MEDS ORDERED: PRED10TA2 PO (14:10)
[2020-09-22] MEDS ORDERED: LISI20TA33 PO (14:10)
[2020-09-22] MEDS ORDERED: HOME MED LIST COMPLETE! XX SCH (14:15)
[2020-09-22] MEDS: lisinopriL 40 MG TAB PO SCH (14:38)
--- NOTE | 2020-09-22 15:12 | HPEPDOC ---
[facility] Medical History & Physical Date of Admission Sep 22, 2020 Date of Service: Sep 22, 2020 Attending Physician: ALBA CRAWLEY MD History and Physical CHIEF COMPLAINT: SOB History of present illness: 75-year-old W with a history of COPD, current mcc smoker, chronic hypoxemic respiratory failure on 4L NC at baseline, frequent admissions for COPD exacerbation, with a history of medical non-compliance, recently started on a prednisone taper on 09/19, unclear if she has been taking the prednisone as prescribed, also with DM, HTN, HLD, hypothyroidism who called EMS because she wa s having difficulty breathing with wheezing and enroute received dexamethasone 10mg per EMS. She denies any recent history of fever, chills, productive sputum more than her baseline, sick contacts, travel, noted extremity swelling. In the ED, she is hypertensive but has not been given her home meds with last meds taken yesterday and is breathing comfortably on her baseline 4L NC but had ED physician noted wheezing and tightness. She was given hydralazine 50mg PO once nad later 10 IV once for hypertension and otherwise medicine was consulted for admission for COPD exacerbation. Investigations were notable for WBC 11, Hgb 9.4, platelets 174, na 143, K 3.9, Cr 0.85, proBNP 9323, CXR that was stable from prior without acute infiltrates or effusions, CTA chest that showed small bilateral pleural effusions with no focal GGOs or PE. Not sure why she got a head CT but it was stable with no evidence of acute bleeding, infarct or masses, with an old R basal ganglia lacunar infarct. She was given albuterol/ipratropim mdi and is now being admitted to medicine for COPD exacerbation i/s/o what ap pears to be medical non-compliance and continued smoking, as well as what appears to be a CHF exacerbation likely 2/2 pulmonary disease. Past medical history: Chronic back pain L4 compression - Spinal stenosis - Peripheral vascular disease with s/p right LE angioplasty with stenting - CKD 3 - Bladder cancer follows with Dr. Astudillo in the past - Severe COPD/emphysemalifetime smoker since age 11 and active smoker. - Peripheral vascular disease - Dyslipidemia - Insulin-dependent diabetes mellitus - Hypothyroidism - Hypertension - CHF - Right upper lobe lung mass - Anxiety/depression Social history: Active smoker, smoking since age 11, smokes 1 pack/day now Family History: patient said that she does not remember but there is diabetes and heart problems. REVIEW OF SYSTEMS: 10 point ROS was negative except as noted in the HPI. PHYSICAL EXAMINATION: Vitals: see below General: Patient is awake, alert, oriented times three, in NAD, asking for a glass of water. Eyes: Conjunctiva clear, pupils equal round and reactive to light and accommodation. Anicteric, no injection. ENT: MMM Cardiovascular: RRR, no m/r/g Respiratory: On my examination, she is actually moving air satisfactorily without wheezing, rhonchi. Has trace bibasilar crackles Abdomen: Normoactive sounds throughout, soft, NTND Extremities: 3+ pedal edema bilaterally, has hyperkeratinization of her toes. Clubbing of fingers and toes. Neuro: Awake, alert and fully oriented, CN3-12 intact, clear speech without dysarthria, moving wesly extremities. Labs and Imaging: as summarized above. Please see below for full details. 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, current mcc smoker, chronic hypoxemic respiratory failure on 4L NC at baseline, frequent admissions for COPD exacerbation, with a history of medical non-compliance, recently started on a prednisone taper on 09/19, unclear if she has been taking the prednisone as prescribed, also with DM, HTN, HLD, hypothyroidism who called EMS because she was having difficulty breathing now being admitted to medicine for ongoing COPD exacerbation i/s/o what appears to be medical non-compliance and continued smoking, as well as what appears to be a CHF exacerbation likely 2/2 pulmonary disease. HFpEF exacerbation: bibasilar crackling, LE edema and noted small effusions and elevated proBNP -will give lasix 40 Iv once and monitor output closely -strict I/Os -daily weights -2L/24h fluid restriction -2g sodium diet in addition to consistent carb -had TTE In 08/2020 with some mild pulm HTN and grade 1 diastolic dysfunction and normal EF -daily BMP Chronic hypoxic respiratory failure: at baseline -Patient is on home oxygen at 4L -Gave solumedrol 125 x 1 -will hold her pred taper and give her 40 pred daily for now -Titrate her oxygen to saturations of 88 to 92%. -incentive spirometry -duonebs q6h -albuterol neb q4hp Nicotine addiction: -counselled her that her continued smoking is likely contributing to the repeat admissions for COPD exacerbation -She did not have much comment and said that she would think about cessation and agreed to nicotine replacement therapy with a patch, 21mg/24h HTN: urgency in the ED was due to not having had a her daily meds. -We will continue her home blood pressure medications. -Amlodipine 10 mg p.o. QD, hydralazine 50 mg p.o. BID, lisinopril 40mg p.o. QD Chronic back pain: -We will continue gabapentin 100 mg p.o. daily PRN acetaminophen IDDM 2: -Hypoglycemic protocol -Insulin sliding scale -20 units of levemir at night -SSI AC/HS -consistent carb diet Hypothyroidism: -continue home levothyroxine dose Osteoporosis: -Patient is on alendronate 70 mg p.o. weekly. Peripheral vascular disease s/p angioplasty/stenting: -We will continue her atorvastatin and Plavix Anxiety/depression: -We will continue her hydroxyzine PRM -continue home duloxetine DVT prophylaxis: -teds and sequentials and lovenox SC Vital Signs Vital Signs Date Time Temp Pulse Resp B/P (MAP) Pulse Ox O2 Delivery O2 Flow Rate FiO2 09/22/20 12:47 89 93 09/22/20 12:45 174/77 (109) 09/22/20 11:02 20 09/22/20 09:58 Nasal Cannula 4.0 09/22/20 09:48 98.0 Laboratory Data Labs 24H Laboratory Tests 2 09/22/20 09:43: Immature Granulocyte % (Auto) 0.7, Neutrophils (%) (Auto) 88.2H, Lymphocytes (%) (Auto) 5.7L, Monocytes (%) (Auto) 3.6, Eosinophils (%) (Auto) 1.4, Basophils (%) (Auto) 0.4, Neutrophils # (Auto) 9.7H, Lymphocytes # (Auto) 0.6L, Monocytes # (Auto) 0.4, Eosinophils # (Auto) 0.2, Basophils # (Auto) 0.0, Nucleated Red Blood Cells % (auto) 0.0, Anion Gap 7L, Glomerular Filtration Rate > 60.0, Calcium Level 8.2L, Total Bilirubin 0.4, Direct Bilirubin 0.1, Aspartate Amino Transf (AST/SGOT) 19, Alanine Aminotransferase (ALT/SGPT) 37, Alkaline Phosphatase 135H, Total Creatine Kinase 50, Creatine Kinase MB 3.0, Creatine Kinase MB Relative Index 6.00H, Troponin I 0.04, FQ-Tan-P-Type Natriuretic Peptide 9323H, Total Protein 5.6L, Albumin 2.5L, Albumin/Globulin Ratio 0.8L, Thyroid Stimulating Hormone (TSH) 4.750H, Free Thyroxine 0.97 CBC/BMP Laboratory Tests 09/22/20 09:43 Microbiology Microbiology 09/22/20 Respiratory Virus Panel (PCR) ([facility]) - Final, Complete Home Medications Scheduled Amlodipine Besylate (Amlodipine Besylate) 10 Mg Tablet, 10 MG PO QPM Atorvastatin Calcium (Atorvastatin Calcium) 40 Mg Tablet, 40 MG PO QHS Clopidogrel Bisulfate (Plavix) 75 Mg Tablet, 75 MG PO DAILY Duloxetine HCl (Duloxetine HCl) 60 Mg Capsule.dr, 60 MG PO DAILY Fluticasone/Vilanterol (Breo Ellipta 200-25 Mcg INH) 1 Each Blst.w.dev, 1 PUFF INH DAILY Gabapentin (Gabapentin) 100 Mg Capsule, 100 MG PO QHS Hydralazine HCl (Hydralazine HCl) 50 Mg Tablet, 50 MG PO BID 0800, 1700 Insulin Detemir (Levemir Flextouch) 100 Unit/1 Ml Insuln.pen, 20 UNIT SC QPM Levothyroxine Sodium (Levothyroxine Sodium) 75 Mcg Tablet, 75 MCG PO DAILY Lisinopril (Lisinopril) 20 Mg Tablet, 20 MG PO BID 0800, 1700 Metformin HCl (Metformin HCl) 500 Mg Tablet, 500 MG PO BID 0800, 1700 Prednisone (Prednisone) 10 Mg Tablet, 40 MG PO TAPER FILLED 09/19/20, 40MG DAILY FOR 3 DAYS, 30MG DAILY FOR 3 DAYS, 20MG DAILY FOR 3 DAYS, 10MG DAILY FOR 3 DAYS Scheduled PRN Hydroxyzine HCl (Hydroxyzine HCl) 10 Mg Tablet, 10 MG PO Q8H PRN for ANXIETY Allergies Coded Allergies: Sulfa (Sulfonamide Antibiotics) (Verified Allergy, Mild, RASH, 09/22/20) bacitracin (Verified Allergy, Mild, RASH, 09/22/20) cortisone (Verified Allergy, Mild, RASH, 09/22/20) neomycin (Verified Allergy, Mild, RASH, 09/22/20) polymyxin B (Verified Allergy, Mild, RASH, 09/22/20) red dye (Unverified Allergy, Mild, rash OCCURRED ONCE WITH CAPSULE MED N O OTHER PROBLEMS WIT, 09/22/20) fluoxetine (Unverified Allergy, Unknown, 09/22/20) tramadol (Unverified Allergy, Unknown, 09/22/20) HAS HAD OXYCODONE BEFORE WITHOUT ISSUE A-FIB/CHADSVASC A-FIB History Current/History of A-Fib/PAF?: No Current PO Anticoag Therapy: No Age/Risk Factor Scoring CHADSVASC: CHADSVASC Response (Comments) Value Age Risk Factor Age >/= 75 years old 2 Gender Risk Factor Female 1 Hx of CHF Yes 1 Hx of HTN Yes 1 Hx of Stroke/TIA/or VTE Yes 2 Hx of Diabetes Yes 1 Hx of Vascular Disease No 0 Total 8 Treatment Treatment ordered: NONE Reason Anticoagulant not given: Not indicated/[id number] ALBA CRAWLEY MD Sep 22, 2020 14:16
[2020-09-22 15:25] VITALS: BP 139/72
[2020-09-22] MEDS: HumaLOG INSULIN (NovoLOG) PER UNIT SC SCH (18:23)
[2020-09-22] MEDS: ACETAMINOPHEN TAB 650MG DOSE (2X325MG) PO PRN (18:27)
[2020-09-22] MEDS: NICOTINE 21MG/24HR 1 EA TRANSDERMAL TD SCH (18:27)
[2020-09-22] MEDS: ADVAIR HFA 230/21MCG INHALER INH SCH (19:22)
[2020-09-22] MEDS: **hydrALAZINE** 50 MG TAB PO SCH (20:47)
[2020-09-22] MEDS ORDERED: GABAPENTIN 100 MG CAP PO SCH (21:00)
[2020-09-22] MEDS ORDERED: LEVEMIR (INSULIN DETEMIR) 1 UNITS/0.01ML SC SCH (21:00)
[2020-09-22] MEDS ORDERED: HumaLOG INSULIN (NovoLOG) PER UNIT SC SCH (21:00)
[2020-09-22] MEDS ORDERED: ATORVASTATIN 20 MG TAB PO SCH (21:00)
[2020-09-22 22:00] VITALS: BP 117/54
[2020-09-23] MEDS: IPRATROPIUM 0.5MG/ALBUTEROL 2.5MG INH SOL UD 3ML (DUONEB) NEB SCH ×3 (01:24→14:32)
[2020-09-23 06:00] VITALS: BP 165/76
[2020-09-23] MEDS ORDERED: LEVOTHYROXINE 75MCG TABLET (0.075MG) PO SCH (06:00)
[2020-09-23 07:57] LABS: HEMATOCRIT 29.6 % (36.0-47.0); HEMOGLOBIN 9.7 g/dl (12.0-15.5); MEAN CORPUSCULAR HEMOGLOBIN 31.2 pg (27.0-33.0); MEAN CORPUSCULAR HGB CONC 32.8 g/dl (32.0-36.5); MEAN CORPUSCULAR VOLUME 95.2 fl (80.0-96.0); PLATELET COUNT, AUTOMATED 204 10^3/uL (150-450); RED BLOOD COUNT 3.11 10^6/uL (4.00-5.40); WHITE BLOOD COUNT 9.4 10^3/uL (4.0-10.0)
--- NOTE | 2020-09-23 08:12 | ECGEPIP ---
[facility] - ED Test Date: 2020-09-22 Pat Name: ELA LIVINGSTON Department: Room: - Gender: Female Probation Supervisor: MICHAEL : 1945 Requested By: OTTO Valdes Order Number: [id number] Reading MD: Mat Toussaint Measurements Intervals [place] Rate: 84 P: 59 [place]: 128 QRS: 21 QRSD: 106 T: 111 QT: 392 QTc: 463 Interpretive Statements Normal sinus rhythm Incomplete left bundle branch block LVH WITH STRAIN PATTERN POSSIBLE PRIOR INFERIOR INFARCT POSSIBLE PRIOR ANTERIOR INFARCT SIMILAR TO 09/02/20 Electronically Signed on 09-23-2020 8:12:25 EDT by Mat Toussaint
[2020-09-23] MEDS: HumaLOG INSULIN (NovoLOG) PER UNIT SC SCH ×3 (08:18→17:30)
[2020-09-23 08:30] LABS: CALCIUM LEVEL 8.4 MG/DL (8.8-10.2); CREATININE FOR GFR 1.47 MG/DL (0.55-1.30); GLOMERULAR FILTRATION RATE 36.9 (>39)
[2020-09-23] MEDS: ADVAIR HFA 230/21MCG INHALER INH SCH (08:48)
[2020-09-23] MEDS ORDERED: predniSONE 20 MG TAB PO SCH (09:00)
[2020-09-23] MEDS: **hydrALAZINE** 50 MG TAB PO SCH (09:00)
[2020-09-23] MEDS ORDERED: DULoxetine 30 MG CAP (CYMBALTA) PO SCH (09:00)
[2020-09-23] MEDS ORDERED: PANTOPRAZOLE 40MG TAB (PROTONIX) PO SCH (09:00)
[2020-09-23] MEDS ORDERED: CLOPIDOGREL 75 MG TAB PO SCH (09:00)
[2020-09-23] MEDS ORDERED: ENOXAPARIN 40MG/0.4ML SYRINGE (J1650 PER 10MG) SC SCH (09:00)
[2020-09-23] MEDS: NICOTINE 21MG/24HR 1 EA TRANSDERMAL TD SCH (10:12)
[2020-09-23] MEDS: ACETAMINOPHEN TAB 650MG DOSE (2X325MG) PO PRN (10:14)
[2020-09-23] MEDS: lisinopriL 40 MG TAB PO SCH (10:17)
[2020-09-23 10:19] VITALS: BP 114/55
--- NOTE | 2020-09-23 12:46 | IPNPDOC ---
Text Note Date of Service The patient was seen on 09/23/20. NOTE SUBJECTIVE: -No acute complaints -BO and wheezing has improved Vitals: see below General: Patient is awake, alert, oriented times three, in NAD, asking for a glass of water. Eyes: Conjunctiva clear, pupils equal round and reactive to light and accommodation. Anicteric, no injection. ENT: MMM Cardiovascular: RRR, no m/r/g Respiratory: Moving air well, no wheezing, rhonchi. Trace bibasilar crackles Abdomen: Normoactive sounds throughout, soft, NTND Extremities: Mild pedal edema bilaterally, has hyperkeratinization of her toes. Clubbing of fingers and toes. Neuro: Awake, alert and fully oriented, CN3-12 intact, clear speech without dysarthria, moving wesly extremities. Labs: Reviwed 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, current correction smoker, chronic hypoxemic respiratory failure on 4L NC at baseline, frequent admissions for COPD exacerbation, with a history of medical non-compliance, recently started on a prednisone taper on 09/19, unclear if she has been taking the prednisone as prescribed, also with DM, HTN, HLD, hypothyroidism who called EMS because she was having difficulty breathing now being admitted to medicine for ongoing COPD exacerbation i/s/o what appears to be medical non-compliance and continued smoking, as well as what appears to be a CHF exacerbation likely 2/2 pulmonary disease. HFpEF exacerbation: bibasilar crackling, LE edema and noted small effusions and elevated proBNP at admission, now improved -s/p lasix 40 at admission -strict I/Os -daily weights -2L/24h fluid restriction -2g sodium diet in addition to consistent carb -had TTE In 08/2020 with some mild pulm HTN and grade 1 diastolic dysfunction and normal EF -daily BMP, Cr bumped, exam improved, no further diuretic Chronic hypoxic respiratory failure: at baseline -Patient is on home oxygen at 4L -Gave solumedrol 125 x 1 -will hold her pred taper and give her 40 pred daily for now, to resume taper at discharge. -Titrate her oxygen to saturations of 88 to 92%. -incentive spirometry -duonebs q6h -albuterol neb q4hp Nicotine addiction: -counselled her that her continued smoking is likely contributing to the repeat admissions for COPD exacerbation -She did not have much comment and said that she would think about cessation and agreed to nicotine replacement therapy with a patch, 21mg/24h HTN: urgency in the ED was due to not having had a her daily meds. -We will continue her home blood pressure medications. -Amlodipine 10 mg p.o. QD, hydralazine 50 mg p.o. BID, lisinopril 40mg p.o. QD Chronic back pain: -We will continue gabapentin 100 mg p.o. daily PRN acetaminophen IDDM 2: -Hypoglycemic protocol -Insulin sliding scale -20 units of levemir at night -SSI AC/HS -consistent carb diet Hypothyroidism: -continue home levothyroxine dose Osteoporosis: -Patient is on alendronate 70 mg p.o. weekly. Peripheral vascular disease s/p angioplasty/stenting: -We will continue her atorvastatin and Plavix Anxiety/depression: -We will continue her hydroxyzine PRM -continue home duloxetine DVT prophylaxis: -teds and sequentials and lovenox SC VS,Fishbone, I+O VS, Fishbone, I+O Laboratory Tests 09/22/20 09:43 09/23/20 07:36 Vital Signs Date Time Temp Pulse Resp B/P (MAP) Pulse Ox O2 Delivery O2 Flow Rate FiO2 09/23/20 06:00 98.2 92 22 165/76 (105) 94 Nasal Cannula 3.5 I&O- Last 24 Hours up to 6 AM 09/23/20 06:00 Intake Total 1120 ml Output Total 400 ml Balance 720 ml ALBA CRAWLEY MD Sep 23, 2020 09:46
--- NOTE | 2020-09-23 12:46 | DS.PDOC ---
Discharge Summary General Date of Admission Sep 22, 2020 at 13:29 Date of Discharge 09/23/2020 Attending Physician: ALBA CRAWLEY MD Discharge Summary PROCEDURES PERFORMED DURING STAY: None ADMITTING DIAGNOSES: COPD exacerbation DISCHARGE DIAGNOSES: COPD exacerbation i/s/o medication noncompliance and continued smoking. Has severe COPD/emphysemalifetime smoker since age 11 and active smoker. Chronic back pain, with known L4 compression and Spinal stenosis Peripheral vascular disease with s/p right LE angioplasty with stenting CKD3 History of Bladder cancer follows with Dr. Astudillo in the past Dyslipidemia Insulin-dependent diabetes mellitus Hypothyroidism Hypertension Mild HFpEF exacerbation Right upper lobe lung mass Anxiety/depression COMPLICATIONS/CHIEF COMPLAINT: Copd With Acute Exacerbation. 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 She denied any recent history of fever, chills, productive sputum more than her baseline, sick contacts, travel, noted extremity swelling. HOSPITAL COURSE: In the ED, she was hypertensive i/s/o not getting her home meds with last meds taken the day before presentation and on her baseline 4L NC with ED physician noted wheezing and tightness at presentation. She was given hydralazine 50mg PO once nad later 10 IV once for hypertension and medicine was consulted for admission for COPD exacerbation. Investigations were notable for WBC 11, Hgb 9.4, platelets 174, na 143, K 3.9, Cr 0.85, proBNP 9323, CXR that was stable from prior without acute infiltrates or effusions, CTA chest that showed small bilateral pleural effusions with no focal GGOs or PE. Not sure why she got a head CT but it was stable with no evidence of acute bleeding, infarct or masses, with an old R basal ganglia lacunar infarct. She was given albuterol/ipratropim mdi and was admitted to medicine for COPD exacerbation i/s/o what appears to be medical non-compliance and continued smoking, as well as what appears to be a CHF exacerbation likely 2/2 pulmonary disease. On day 2, her breathing had improved back to baseline, moving air well without wheezing on baseline 4L and ambulated well without desaturations. Cr bumped to 1.47 after a lasix dose and I stopped diuretic therapy. She is now being discharged home with close PCP follow up. At this time, I discussed medication compliance with her and expressed poor knowledge of her meds and thankfully has blister packs delivered by [employer] and has a pred taper that was picked up/delivered on 09/21 and so I will not pres cribe more steroids. She agreed to visiting nurse service to check on her medication compliance. DISCHARGE MEDICATIONS: Please see below. ALLERGIES: Please see below. PHYSICAL EXAMINATION ON DISCHARGE: Vitals: see below General: Patient is awake, alert, oriented times three, in NAD, asking for a glass of water. Eyes: Conjunctiva clear, pupils equal round and reactive to light and accommodation. Anicteric, no injection. ENT: MMM Cardiovascular: RRR, no m/r/g Respiratory: Clear, no wheezing, rales or rhonchi Abdomen: Normoactive sounds throughout, soft, NTND Extremities: 3+ pedal edema bilaterally, has hyperkeratinization of her toes. Clubbing of fingers and toes. Neuro: Awake, alert and fully oriented, CN3-12 intact, clear speech without dysarthria, moving wesly extremities. LABORATORY DATA: Please see below. IMAGING: CXR: Chronic pleural and parenchymal changes in the right lung most pronounced in the apex and right hilum. Lungs free of active parenchymal disease. No interval change when compared with the previous study. Heart not enlarged. No failure. Pleural thickening at both costophrenic angles. Osteoporosis and spondylosis thoracic spine. Several minimal midthoracic compression fractures. IMPRESSION: Chronic changes. No interval change compared with the previous study. No active process. Head CT: Bone window settings demonstrate an intact bony calvarium. There is no evidence of skull fracture or incidental bony calvarial lesion. The visualized paranasal sinuses appear clear. No intraorbital abnormality is seen. On soft tissue window setting images; the lateral, third, and fourth ventricles are normal in size and position. Barrios-white differentiation pattern is normal above and below the tentorium. There are is no evidence of intracranial hemorrhage. No mass, edema, infarction, or midline shift is seen. No extra-axial fluid collection is appreciated. There is heavy vascular calcification again noted in the distal vertebral and carotid arteries. There is moderate generalized volume loss again visible. Small- vessel changes are noted in the periventricular white matter bilaterally. There is a tiny low-density area in the head of the caudate nucleus on the right consistent with an old lacunar infarct. This is unchanged from comparison study August 17, 2020. IMPRESSION: No acute intracranial abnormality. Vascular calcification, small vessel changes, diffuse atrophy, and old lacunar infarct in the right basal ganglia. CTA chest: There are no pulmonary emboli. The aorta is heavily calcified. There is no evidence of dissection or aneurysm. There are infiltrates at both lung bases left larger than right.. Pleural thickening and fibrotic change noted at the right lung apex. Small bilateral pleural effusions left larger than right. mediastinal adenopathy present- multiple enlarged mediastinal lymph nodes. IMPRESSION: Small bilateral pleural effusions pitted infiltrates at both lung bases left larger than right. Chronic fibrotic changes right apex and chronic right pleural thickening. No pulmonary emboli. PROGNOSIS: Good, however, high risk for readmission due to medical non compliance and continued smoking history with no desire to quit at this time. ACTIVITY: As tolerated DIET: Consistent carb DISCHARGE PLAN: Home with services and begin the recently prescribed prednisone taper. Encouraged to consider quitting smoking. DISPOSITION: Home with services DISCHARGE INSTRUCTIONS: Home with services and begin the recently prescribed prednisone taper. Encouraged to consider quitting smoking. ITEMS TO FOLLOWUP ON ON OUTPATIENT: COPD DISCHARGE CONDITION: Stable TIME SPENT ON DISCHARGE: 46 minutes. Vital Signs/I&Os Vital Signs Date Time Temp Pulse Resp B/P (MAP) Pulse Ox O2 Delivery O2 Flow Rate FiO2 09/23/20 10:19 84 114/55 09/23/20 06:00 98.2 22 94 Nasal Cannula 3.5 I&O- Last 24 Hours up to 6 AM 09/23/20 06:00 Intake Total 1120 ml Output Total 400 ml Balance 720 ml Laboratory Data Labs 24H Laboratory Tests 2 09/22/20 16:50: Bedside Glucose (Misc Panel) 369H 09/22/20 20:25: Bedside Glucose (Misc Panel) 490H 09/23/20 07:36: Nucleated Red Blood Cells % (auto) 0.0, Anion Gap 8, Glomerular Filtration Rate 36.9L, Calcium Level 8.4L 09/23/20 07:57: Bedside Glucose (Misc Panel) 393H 09/23/20 11:34: Bedside Glucose (Misc Panel) 229H CBC/BMP Laboratory Tests 09/23/20 07:36 FSBS Laboratory Tests Test 09/22/20 16:50 09/22/20 20:25 09/23/20 07:57 09/23/20 11:34 Range/Units Bedside Glucose (Misc Panel) 369 490 393 229 83-110 MG/DL Microbiology Microbiology 09/22/20 Respiratory Virus Panel (PCR) (SANDRA) - Final, Complete Discharge Medications Scheduled Amlodipine Besylate (Amlodipine Besylate) 10 Mg Tablet, 10 MG PO QPM, (Reported) Atorvastatin Calcium (Atorvastatin Calcium) 40 Mg Tablet, 40 MG PO QHS, (Reported) Clopidogrel Bisulfate (Plavix) 75 Mg Tablet, 75 MG PO DAILY, (Reported) Duloxetine HCl (Duloxetine HCl) 60 Mg Capsule.dr, 60 MG PO DAILY, (Reported) Fluticasone/Vilanterol (Breo Ellipta 200-25 Mcg INH) 1 Each Blst.w.dev, 1 PUFF INH DAILY, (Reported) Gabapentin (Gabapentin) 100 Mg Capsule, 100 MG PO QHS, (Reported) Hydralazine HCl (Hydralazine HCl) 50 Mg Tablet, 50 MG PO BID, (Reported) 0800, 1700 Insulin Detemir (Levemir Flextouch) 100 Unit/1 Ml Insuln.pen, 20 UNIT SC QPM, (Reported) Levothyroxine Sodium (Levothyroxine Sodium) 75 Mcg Tablet, 75 MCG PO DAILY, (Reported) Lisinopril (Lisinopril) 20 Mg Tablet, 20 MG PO BID, (Reported) 0800, 1700 Metformin HCl (Metformin HCl) 500 Mg Tablet, 500 MG PO BID, (Reported) 0800, 1700 Prednisone (Prednisone) 10 Mg Tablet, 40 MG PO TAPER, (Reported) FILLED 09/19/20, 40MG DAILY FOR 3 DAYS, 30MG DAILY FOR 3 DAYS, 20MG DAILY FOR 3 DAYS, 10MG DAILY FOR 3 DAYS Scheduled PRN Hydroxyzine HCl (Hydroxyzine HCl) 10 Mg Tablet, 10 MG PO Q8H PRN for ANXIETY, (Reported) Allergies Coded Allergies: Sulfa (Sulfonamide Antibiotics) (Verified Allergy, Mild, RASH, 09/22/20) bacitracin (Verified Allergy, Mild, RASH, 09/22/20) cortisone (Verified Allergy, Mild, RASH, 09/22/20) neomycin (Verified Allergy, Mild, RASH, 09/22/20) polymyxin B (Verified Allergy, Mild, RASH, 09/22/20) red dye (Unverified Allergy, Mild, rash OCCURRED ONCE WITH CAPSULE MED NO OTHER PROBLEMS WIT, 09/22/20) fluoxetine (Unverified Allergy, Unknown, 09/22/20) tramadol (Unverified Allergy, Unknown, 09/22/20) HAS HAD OXYCODONE BEFORE WITHOUT ISSUE ALBA CRAWLEY MD Sep 23, 2020 12:46
[2020-09-23] MEDS: TIOTROPIUM INHALER/CAPSULE (SPIRIVA) INH SCH ×2 (12:50→14:32)
[2020-09-23 14:00] VITALS: BP 167/73
[2020-09-23 20:00] VITALS: BP 167/81
[2020-09-23] MEDS ORDERED: LEVEMIR (INSULIN DETEMIR) 1 UNITS/0.01ML SC SCH (21:00)
[2020-09-24] MEDS ORDERED: NICO21DI37 TOP (07:17)
[2020-09-24] MEDS ORDERED: VENTAER INH (16:05)
== END 2020-09-23 20:00 | disposition home or self-care (01) | DRG 190 ==
LOC: M ED 09:28 → M ED INP 13:29 → ENRESERV 14:50 → M MS5PR 15:25
PROVIDERS: ADMIT Internal Medicine; ATTEND Internal Medicine
DX: J44.1 Chronic obstructive pulmonary disease with (acute) exacerbation (principal); I50.33 Acute on chronic diastolic (congestive) heart failure; I13.0 Hypertensive heart and chronic kidney disease with heart failure and stage 1 through stage 4 chronic kidney disease, or unspecified chronic kidney disease; J96.11 Chronic respiratory failure with hypoxia; F17.210 Nicotine dependence, cigarettes, uncomplicated; Z99.81 Dependence on supplemental oxygen; E11.65 Type 2 diabetes mellitus with hyperglycemia; E03.9 Hypothyroidism, unspecified; M81.0 Age-related osteoporosis without current pathological fracture; F41.9 Anxiety disorder, unspecified; F32.9 Major depressive disorder, single episode, unspecified; I73.9 Peripheral vascular disease, unspecified; Z91.19 Patient's noncompliance with other medical treatment and regimen; M48.00 Spinal stenosis, site unspecified; Z95.828 Presence of other vascular implants and grafts; R91.8 Other nonspecific abnormal finding of lung field; Z79.899 Other long term (current) drug therapy; Z20.822 Contact with and (suspected) exposure to COVID-19; Z88.2 Allergy status to sulfonamides; Z88.8 Allergy status to other drugs, medicaments and biological substances; Z91.02 Food additives allergy status; Z91.14 Patient's other noncompliance with medication regimen; M54.5 Low back pain; N18.30 Chronic kidney disease, stage 3 unspecified; E78.5 Hyperlipidemia, unspecified; Z85.51 Personal history of malignant neoplasm of bladder

== ENCOUNTER 2020-09-24 13:29 | Inpatient (IN) | payer MEDICARE ==
[~2020-09-24] VITALS: Ht 165.1 cm; Wt 58.8 kg
[~2020-09-24 13:29] MED LIST changes: +LEVE1INJ5 SC; +NICO21DI37 TOP
[2020-09-24] MEDS ORDERED: IPRATROPIUM 0.5MG/ALBUTEROL 2.5MG INH SOL UD 3ML (DUONEB) NEB ONE (13:55)
[2020-09-24] MEDS ORDERED: dexameTHASONE 20MG/5ML VIAL (J1100 PER 1MG) IV ONE (13:55)
[2020-09-24 14:32] LABS: BASO % 0.2 % (0.0-1.0); EOS # 0.2 10^3/uL (0.0-0.5); EOS % 1.2 % (0.0-3.0); HEMATOCRIT 30.7 % (36.0-47.0); LYMPH # 1.7 10^3/uL (1.5-5.0); LYMPH % 13.1 % (24.0-44.0); MEAN CORPUSCULAR HEMOGLOBIN 31.7 pg (27.0-33.0); MEAN CORPUSCULAR HGB CONC 32.6 g/dl (32.0-36.5); MEAN CORPUSCULAR VOLUME 97.5 fl (80.0-96.0); MONO # 0.9 10^3/uL (0.0-0.8); MONO % 7.3 % (2.0-8.0); NEUTROPHILS # 9.9 10^3/uL (1.5-8.5); PLATELET COUNT, AUTOMATED 215 10^3/uL (150-450); RED BLOOD COUNT 3.15 10^6/uL (4.00-5.40); WHITE BLOOD COUNT 12.8 10^3/uL (4.0-10.0)
[2020-09-24 14:56] LABS: ALBUMIN 2.6 GM/DL (3.2-5.2); BILIRUBIN,DIRECT 0.1 MG/DL (0.0-0.2); BILIRUBIN,TOTAL 0.4 MG/DL (0.2-1.0); CALCIUM LEVEL 7.7 MG/DL (8.8-10.2); CK-MB VALUE MASS 3.7 NG/ML (<3.6); CREATININE FOR GFR 1.57 MG/DL (0.55-1.30); GLOMERULAR FILTRATION RATE 34.2 (>39); MB/CK RELATIVE INDEX 3.27 (< OR =4); POTASSIUM SERUM 5.6 MEQ/L (3.5-5.1); TOTAL PROTEIN 5.8 GM/DL (6.4-8.2); TROPONIN I 0.02 NG/ML (< 0.10)
--- NOTE | 2020-09-24 14:58 | REP ---
INDICATION: DYSPNEA/COUGH. COMPARISON: 09/02/2020 TECHNIQUE: AP view FINDINGS: There is a focal air pleural thickening lateral aspect right upper lobe with larger AV adjacent fibrosis paired the right upper lobe bleb. Pleural effusion left base. Small infiltrate left lower lobe. Heart not enlarged. No failure. IMPRESSION: Chronic changes right upper lobe unchanged since the previous study. New infiltrate at the left lung base with adjacent pleural effusion. <Electronically signed by Ab Ochoa > 09/24/20 1714
[2020-09-24 15:06] LABS: RSV AMPLIFICATION NEGATIVE (NEGATIVE)
[2020-09-24 15:09] LABS: VENOUS BASE EXCESS -0.9 (-2.0-2.0); VENOUS HCO3 23.5 MEQ/L (23.0-27.0); VENOUS O2 SATURATION 99.1 % (60.0-80.0); VENOUS PARTIAL PRESSURE CO2 37.8 mmHg (38.0-50.0); VENOUS PARTIAL PRESSURE O2 191.6 mmHg (30.0-50.0); VENOUS PH 7.411 UNITS (7.330-7.430); VENOUS STANDARD HCO3 23.8 MEQ/L; VENOUS TOTAL CO2 24.6 MEQ/L (24.0-28.0)
[2020-09-24] MEDS ORDERED: HumuLIN R (REGULAR) INSULIN (NovoLIN R) **100U/ML** PER UNIT SC STA (15:47)
[2020-09-24] MEDS ORDERED: LevoFLOXacin IV 750 MG in IV 1 EA IV ONE (16:00)
[2020-09-24] MEDS ORDERED: HOME MED LIST COMPLETE! XX SCH (16:05)
[2020-09-24] MEDS ORDERED: VENTAER INH (16:05)
[2020-09-24 16:08] LABS: ACETONE/KETONE 1.32 MG/DL (<2.81)
[2020-09-24] MEDS ORDERED: methylPREDNISolone 125MG 2ML VIAL IV STA (16:41)
[2020-09-24] MEDS ORDERED: DEXTROSE 50% 50 ML SYRINGE IV PRN (16:45)
[2020-09-24] MEDS ORDERED: GLUCOSE 4GM CHEW TABLET PO PRN (16:45)
[2020-09-24] MEDS ORDERED: ALBUTEROL 90 MCG/ACT 8GM HFA INHALER INH PRN (16:45)
[2020-09-24] MEDS ORDERED: LevoFLOXacin IV 750 MG in IV 1 EA IV SCH (16:45)
[2020-09-24] MEDS ORDERED: GLUCAGON INJ 1MG VIAL SC PRN (16:45)
[2020-09-24] MEDS ORDERED: ALBUTEROL SULFATE 2.5 MG/0.5 ML INH NEB SOLN NEB PRN (16:45)
[2020-09-24] MEDS ORDERED: NS 1,000 ML IV SCH (17:10)
[2020-09-24] MEDS ORDERED: SOD POLYSTYRENE SULFONATE SUSP 15 GM/60 ML UD PO ONE (17:20)
[2020-09-24] MEDS ORDERED: HumaLOG INSULIN (NovoLOG) PER UNIT SC SCH ×2 (17:30→21:00)
[2020-09-24] MEDS: **hydrALAZINE** 50 MG TAB PO SCH (17:46)
[2020-09-24] MEDS: DULoxetine 30 MG CAP (CYMBALTA) PO SCH ×2 (17:47→19:01)
--- NOTE | 2020-09-24 18:14 | HPEPDOC ---
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, chronic hypoxemic respiratory failure on 4L NC at baseline, frequent admissions for COPD exacerbation, with a history of medical non-compliance, recently started on a prednisone taper on 09/19 , unclear if she had been taking the prednisone as prescribed, then admitted by myself on 09/22 for COPD exacerbation that resolved with resumption of steroids and we discussed compliance at length and I discharged her home yesterday after she insisted that she was at her baseline and would take meds as prescribed and as delivered by [employer] in blister packs who now returns with the same with history of confusion with her meds that she is self administering and continued smoking. Of note, at discharge she had had a slight Cr bump after I gave her some lasix for LE edema. She also has a history of DM, HTN, HLD, hypothyroidism. She denies any fever, chills, productive sputum more than her baseline, sick contacts or travel. In the ED, she is hypertensive and reports not having taken her medications this morning. Investigations were notable for WBC 12.8, Hgb 10, platelets 215, na 136, K 5.6, Cr 1.57, proBNP 8602, CXR that now showed a LL basilar infiltrate with an adjacent effusion and I am admitting her for COPD exacerbation 2/2 CAP and SU. Past medical history: Chronic back pain L4 compression - Spinal stenosis - Peripheral vascular disease with s/p right LE angioplasty with stenting - CKD 3 - Bladder cancer follows with Dr. Astudillo in the past - Severe COPD/emphysemalifetime smoker since age 11 and active smoker. - Peripheral vascular disease - Dyslipidemia - Insulin-dependent diabetes mellitus - Hypothyroidism - Hypertension - CHF - Right upper lobe lung mass - Anxiety/depression Social history: Active smoker, smoking since age 11, smokes 1 pack/day now Family History: patient said that she does not remember but there is diabetes and heart problems. REVIEW OF SYSTEMS: 10 point ROS was negative except as noted in the HPI. PHYSICAL EXAMINATION: Vitals: see below General: Patient is awake, alert and oriented. NAD Eyes: Conjunctiva clear, EOMI, MMM, PERRLA ENT: MMM Cardiovascular: RRR, no m/r/g Respiratory: Bibasilar crackles, scattered wheezing, speaking without conversational dyspnea on 2L NC Abdomen: Normoactive sounds throughout, soft, NTND Extremities: 3+ pedal edema bilaterally, has hyperkeratinization of her toes. Clubbing of fingers and toes. Neuro: Awake, alert and fully oriented, CN3-12 intact, clear speech without dysarthria. Labs and Imaging: as summarized above. Please see below for full details. 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, chronic hypoxemic respiratory failure on 4L NC at baseline, frequent admissions for COPD exacerbation, with a history of medical non-compliance, recently started on a prednisone taper on 09/19 , unclear if she had been taking the prednisone as prescribed, then admitted by myself on 09/22 for COPD exacerbation that resolved with resumption of steroids and we discussed compliance at length and I discharged her home yesterday after she insisted that she was at her baseline and would take meds as prescribed and as delivered by [employer] in blister packs who now returns with the same, with a history of confusion with her meds that she is self administering and continued smoking and I am admitting her for COPD exacerbation 2/2 CAP and SU. Chronic hypoxic respiratory failure: at baseline -Patient is on home oxygen at 4L at baseline, currently on 2L -Gave solumedrol 125 x 1 -will hold her pred taper and give her 40 pred daily for now starting tomorrow -Titrate her oxygen to saturations of 88 to 92%. -incentive spirometry -duonebs q6h -albuterol neb q4hp -advair SU: -urine lytes for FeUrea -renal US was recently wnl -will give 500cc of fluid as Cr bumped after diuretic -if worsening, will consult nephrology chronic HFpEF: -strict I/Os -daily weights -2L/24h fluid restriction -2g sodium diet in addition to consistent carb -had TTE In 08/2020 with some mild pulm HTN and grade 1 diastolic dysfunction and normal EF Nicotine addiction: -counselled at length that her smoking is contributing to the repeat admissions for COPD exacerbation -nicotine patch 21mg/24h HTN: urgency in the ED, no home meds administered. -We will continue her home blood pressure medications. -Urged ED to please give her her home meds while in the ED to keep up with her severe essential HTN -Amlodipine 10 mg p.o. QD, hydralazine 50 mg p.o. BID, lisinopril 40mg p.o. QD Chronic back pain: -We will continue gabapentin 100 mg p.o. daily -PRN acetaminophen IDDM 2: -Hypoglycemic protocol -Insulin sliding scale -20 units of levemir at night -SSI AC/HS -consistent carb diet Hypothyroidism: -continue home levothyroxine dose Osteoporosis: -Patient is on alendronate 70 mg p.o. weekly. Peripheral vascular disease s/p angioplasty/stenting: -We will continue her atorvastatin and Plavix Anxiety/depression: -We will continue her hydroxyzine PRM -continue home duloxetine DVT prophylaxis: -teds and sequentials and heparin SC Vital Signs Vital Signs Date Time Temp Pulse Resp B/P (MAP) Pulse Ox O2 Delivery O2 Flow Rate FiO2 09/24/20 13:45 193/86 (121) 09/24/20 13:44 98.8 81 25 100 Nasal Cannula 2.0 Laboratory Data Labs 24H Laboratory Tests 2 09/24/20 14:20: Immature Granulocyte % (Auto) 1.2, Neutrophils (%) (Auto) 77.0H, Lymphocytes (%) (Auto) 13.1L, Monocytes (%) (Auto) 7.3, Eosinophils (%) (Auto) 1.2, Basophils (%) (Auto) 0.2, Neutrophils # (Auto) 9.9H, Lymphocytes # (Auto) 1.7, Monocytes # (Auto) 0.9H, Eosinophils # (Auto) 0.2, Basophils # (Auto) 0.0, Nucleated Red Blood Cells % (auto) 0.0, Anion Gap 10, Glomerular Filtration Rate 34.2L, Calcium Level 7.7L, Total Bilirubin 0.4, Direct Bilirubin 0.1, Aspartate Amino Transf (AST/SGOT) 38H, Alanine Aminotransferase (ALT/SGPT) 37, Alkaline Phosphatase 141H, Total Creatine Kinase 113#, Creatine Kinase MB 3.7H, Creatine Kinase MB Relative Index 3.27, Troponin I 0.02, YM-Lev-F-Type Natriuretic Peptide 8602H, Total Protein 5.8L, Albumin 2.6L, Albumin/Globulin Ratio 0.8L, B- Hydroxybutyrate 1.32, Coronavirus (COVID-19)(PCR) NEGATIVE, Influenza Type A (RT-PCR) NEGATIVE, Influenza Type B (RT-PCR) NEGATIVE, Respiratory Syncytial Virus (PCR) NEGATIVE 09/24/20 15:01: Blood Gas Bicarbonate Standard 23.8, Venous Blood pH 7.411, Venous Blood Partial Pressure CO2 37.8L, Venous Blood Partial Pressure O2 191.6H, Venous Blood Total Carbon Dioxide 24.6, Venous Blood HCO3 23.5, Venous Blood Oxygen Saturation 99.1H, Venous Blood Base Excess -0.9, Lactic Acid Level 1.8 CBC/BMP Laboratory Tests 09/24/20 14:20 Microbiology Microbiology 09/24/20 Blood Culture, Received Pending 09/24/20 Blood Culture, Received Pending Home Medications Scheduled Amlodipine Besylate (Amlodipine Besylate) 10 Mg Tablet, 10 MG PO QPM Atorvastatin Calcium (Atorvastatin Calcium) 40 Mg Tablet, 40 MG PO QHS Clopidogrel Bisulfate (Plavix) 75 Mg Tablet, 75 MG PO DAILY Duloxetine HCl (Duloxetine HCl) 60 Mg Capsule.dr, 60 MG PO DAILY Fluticasone/Vilanterol (Breo Ellipta 200-25 Mcg INH) 1 Each Blst.w.dev, 1 PUFF INH DAILY Gabapentin (Gabapentin) 100 Mg Capsule, 100 MG PO QHS Hydralazine HCl (Hydralazine HCl) 50 Mg Tablet, 50 MG PO BID 0800, 1700 Insulin Detemir (Levemir Flextouch) 100 Unit/1 Ml Insuln.pen, 20 UNIT SC QPM Levothyroxine Sodium (Levothyroxine Sodium) 75 Mcg Tablet, 75 MCG PO DAILY Lisinopril (Lisinopril) 20 Mg Tablet, 20 MG PO BID 0800, 1700 Metformin HCl (Metformin HCl) 500 Mg Tablet, 500 MG PO BID 0800, 1700 Prednisone (Prednisone) 10 Mg Tablet, 40 MG PO TAPER FILLED 09/19/20, 40MG DAILY FOR 3 DAYS, 30MG DAILY FOR 3 DAYS, 20MG DAILY FOR 3 DAYS, 10MG DAILY FOR 3 DAYS Scheduled PRN Albuterol Sulfate (Ventolin Hfa) 18 Gm Hfa.aer.ad, 2 PUFFS INH QID PRN for SHORTNESS OF BREATH Hydroxyzine HCl (Hydroxyzine HCl) 10 Mg Tablet, 10 MG PO Q8H PRN for ANXIETY Allergies Coded Allergies: Sulfa (Sulfonamide Antibiotics) (Verified Allergy, Mild, RASH, 09/22/20) bacitracin (Verified Allergy, Mild, RASH, 09/22/20) cortisone (Verified Allergy, Mild, RASH, 09/22/20) neomycin (Verified Allergy, Mild, RASH, 09/22/20) polymyxin B (Verified Allergy, Mild, RASH, 09/22/20) red dye (Unverified Allergy, Mild, rash OCCURRED ONCE WITH CAPSULE MED NO OTHER PROBLEMS WIT, 09/22/20) fluoxetine (Unverified Allergy, Unknown, 09/22/20) tramadol (Unverified Allergy, Unknown, 09/22/20) HAS HAD OXYCODONE BEFORE WITHOUT ISSUE A-FIB/CHADSVASC A-FIB History Current/History of A-Fib/PAF?: No Current PO Anticoag Therapy: No Age/Risk Factor Scoring CHADSVASC: CHADSVASC Response (Comments) Value Age Risk Factor Age >/= 75 years old 2 Gender Risk Factor Female 1 Hx of CHF No 0 Hx of HTN Yes 1 Hx of Stroke/TIA/or VTE No 0 Hx of Diabetes Yes 1 Hx of Vascular Disease No 0 Total 5 Treatment Treatment ordered: NONE Reason Anticoagulant not given: Not indicated/[id number] ALBA CRAWLEY MD Sep 24, 2020 17:37
[2020-09-24 18:45] VITALS: BP 167/73
[2020-09-24] MEDS: NICOTINE 21MG/24HR 1 EA TRANSDERMAL TD SCH (18:59)
[2020-09-24] MEDS: PANTOPRAZOLE 40MG TAB (PROTONIX) PO SCH (19:02)
[2020-09-24] MEDS: hydrOXYzine 10 MG TAB PO PRN (20:25)
[2020-09-24] MEDS: LEVEMIR (INSULIN DETEMIR) 1 UNITS/0.01ML SC SCH (20:25)
[2020-09-24] MEDS: ATORVASTATIN 20 MG TAB PO SCH (20:27)
[2020-09-24] MEDS: GABAPENTIN 100 MG CAP PO SCH (20:27)
[2020-09-24] MEDS: HEPARIN SOD (PORCINE) 5000UNITS/ML 1ML VIAL/SYRINGE SC SCH (20:29)
[2020-09-24] MEDS ORDERED: HumaLOG INSULIN (NovoLOG) PER UNIT SC ONE (20:45)
[2020-09-24] MEDS: ADVAIR HFA 230/21MCG INHALER INH SCH (21:52)
[2020-09-24] MEDS: IPRATROPIUM 0.5MG/ALBUTEROL 2.5MG INH SOL UD 3ML (DUONEB) NEB SCH (21:52)
[2020-09-24 22:00] VITALS: BP 135/63
[2020-09-25] MEDS: HumaLOG INSULIN (NovoLOG) PER UNIT SC SCH ×4 (00:24→17:29)
[2020-09-25] MEDS: ACETAMINOPHEN TAB 650MG DOSE (2X325MG) PO PRN (00:57)
[2020-09-25] MEDS: IPRATROPIUM 0.5MG/ALBUTEROL 2.5MG INH SOL UD 3ML (DUONEB) NEB SCH ×4 (01:22→19:15)
[2020-09-25] MEDS ORDERED: RAMELTEON 8 MG TAB (ROZEREM) PO PRN (01:45)
[2020-09-25] MEDS: LEVOTHYROXINE 75MCG TABLET (0.075MG) PO SCH (05:30)
--- NOTE | 2020-09-25 05:36 | ECGEPIP ---
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
[2020-09-25 06:00] VITALS: BP 169/77
[2020-09-25 06:16] LABS: HEMATOCRIT 26.9 % (36.0-47.0); HEMOGLOBIN 8.8 g/dl (12.0-15.5); MEAN CORPUSCULAR HEMOGLOBIN 31.3 pg (27.0-33.0); MEAN CORPUSCULAR HGB CONC 32.7 g/dl (32.0-36.5); MEAN CORPUSCULAR VOLUME 95.7 fl (80.0-96.0); PLATELET COUNT, AUTOMATED 185 10^3/uL (150-450); RED BLOOD COUNT 2.81 10^6/uL (4.00-5.40); WHITE BLOOD COUNT 8.9 10^3/uL (4.0-10.0)
[2020-09-25 06:30] LABS: CALCIUM LEVEL 7.7 MG/DL (8.8-10.2); CREATININE FOR GFR 1.7 MG/DL (0.55-1.30); GLOMERULAR FILTRATION RATE 31.2 (>39); MAGNESIUM LEVEL 1.8 MG/DL (1.8-2.4); POTASSIUM SERUM 3.8 MEQ/L (3.5-5.1)
[2020-09-25] MEDS: ADVAIR HFA 230/21MCG INHALER INH SCH ×2 (07:01→19:16)
[2020-09-25] MEDS: NICOTINE 21MG/24HR 1 EA TRANSDERMAL TD SCH (08:49)
[2020-09-25] MEDS: PANTOPRAZOLE 40MG TAB (PROTONIX) PO SCH (08:50)
[2020-09-25] MEDS: CLOPIDOGREL 75 MG TAB PO SCH (08:50)
[2020-09-25] MEDS: **hydrALAZINE** 50 MG TAB PO SCH ×2 (08:52→20:31)
[2020-09-25] MEDS: HEPARIN SOD (PORCINE) 5000UNITS/ML 1ML VIAL/SYRINGE SC SCH ×2 (08:53→20:30)
[2020-09-25] MEDS: hydrOXYzine 10 MG TAB PO PRN (11:42)
--- NOTE | 2020-09-25 12:11 | IPNPDOC ---
Text Note Date of Service The patient was seen on 09/25/20. NOTE SUBJECTIVE: -No acute complaints, reports that her breathing is better -Hyperglycemic overnight, corrected with short acting insulin, wnl this AM PHYSICAL EXAMINATION: Vitals: see below General: Patient is awake, alert and oriented. NAD Eyes: Conjunctiva clear, EOMI, MMM, PERRLA ENT: MMM Cardiovascular: RRR, no m/r/g Respiratory: Bibasilar crackles, no wheezing this morning, moving air well, speaking without conversational dyspnea on 3L NC Abdomen: Normoactive sounds throughout, soft, NTND Extremities: 3+ pedal edema bilaterally, has hyperkeratinization of her toes. Clubbing of fingers and toes. Neuro: Awake, alert and fully oriented, CN3-12 intact, clear speech without dysarthria. 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, chronic hypoxemic respiratory failure on 4L NC at baseline, frequent admissions for COPD exacerbation, with a history of medical non-compliance, recently started on a prednisone taper on 09/19 , unclear if she had been taking the prednisone as prescribed, then admitted by myself on 09/22 for COPD exacerbation that resolved with resumption of steroids and we discussed compliance at length and I discharged her home yesterday after she insisted that she was at her baseline and would take meds as prescribed and as delivered by [facility] in blister packs who now returned with the same, with a clear evidence of confusion with her meds that she is self administering and continued smoking and admitted for COPD exacerbation 2/2 CAP and SU. Chronic hypoxic respiratory failure: at baseline -Patient is on home oxygen at 4L at baseline, currently on 2L -s/p solumedrol 125 x 1 -Held her pred taper, starting 40 pred daily today -Titrate her oxygen to saturations of 88 to 92%. -incentive spirometry -duonebs q6h -albuterol neb q4hp -advair SU: -f/u urine lytes for FeUrea -renal US was recently wnl -s/p 500cc of fluid as Cr bumped began after diuretic, unfortunately without improvement this AM -consult nephrology Mild acute on chronic HFpEF: -strict I/Os -daily weights -2L/24h fluid restriction -2g sodium diet in addition to consistent carb -had TTE In 08/2020 with some mild pulm HTN and grade 1 diastolic dysfunction and normal EF -will await nephrology consultation before diuretic therapy Nicotine addiction: -counselled at length that her smoking is contributing to the repeat admissions for COPD exacerbation -nicotine patch 21mg/24h HTN: urgency in the ED, no home meds administered. -Continue her home blood pressure medications. -Urged ED to please give her her home meds while in the ED to keep up with her severe essential HTN -Amlodipine 10 mg p.o. QD, hydralazine 50 mg p.o. BID, lisinopril 40mg p.o. QD Chronic back pain: -We will continue gabapentin 100 mg p.o. daily -PRN acetaminophen IDDM 2: -Hypoglycemic protocol -Insulin sliding scale -20 units of levemir at night -SSI AC/HS -consistent carb diet Hypothyroidism: -continue home levothyroxine dose Osteoporosis: -Patient is on alendronate 70 mg p.o. weekly. Peripheral vascular disease s/p angioplasty/stenting: -We will continue her atorvastatin and Plavix Anxiety/depression: -We will continue her hydroxyzine PRM -continue home duloxetine DVT prophylaxis: -teds and sequentials and heparin SC VS,Fishbone, I+O VS, Fishbone, I+O Laboratory Tests 09/24/20 14:20 09/25/20 05:42 Vital Signs Date Time Temp Pulse Resp B/P (MAP) Pulse Ox O2 Delivery O2 Flow Rate FiO2 09/25/20 06:04 1.0 09/25/20 06:00 97.6 94 20 169/77 (107) 95 Nasal Cannula I&O- Last 24 Hours up to 6 AM 09/25/20 05:59 Intake Total 300 ml Output Total 250 ml Balance 50 ml ALBA CRAWLEY MD Sep 25, 2020 07:46
[2020-09-25 14:00] VITALS: BP 126/68
[2020-09-25 16:32] LABS: PERCENT SATURATION 13.4 % (13.2-45.0)
[2020-09-25] MEDS: ATORVASTATIN 20 MG TAB PO SCH (20:30)
[2020-09-25] MEDS: LEVEMIR (INSULIN DETEMIR) 1 UNITS/0.01ML SC SCH (20:30)
[2020-09-25] MEDS: GABAPENTIN 100 MG CAP PO SCH (20:30)
[2020-09-25 22:00] VITALS: BP 141/71
[2020-09-26] MEDS: HumaLOG INSULIN (NovoLOG) PER UNIT SC SCH ×4 (00:28→17:46)
--- NOTE | 2020-09-26 00:34 | REPVR ---
PROCEDURE INFORMATION: Exam: US Retroperitoneal Limited, Kidneys Exam date and time: 09/25/2020 11:33 PM Age: 75 years old Clinical indication: Condition or disease; Other: Cameron TECHNIQUE: Imaging protocol: Real-time ultrasound of the retroperitoneum with image documentation. Examination was focused on the kidneys. COMPARISON: RENAL US 09/29/2019 12:55 PM FINDINGS: Right kidney measures 5.9 cm in length. Left kidney measures 13.0 cm in length. Atrophic right kidney. Simple right renal cysts as seen previously. No focal parenchymal abnormality. No hydronephrosis. No shadowing, echogenic foci suggestive of stones. IMPRESSION: Atrophic right kidney containing cysts, as seen previously. Normal left kidney. No obstructive uropathy Electronically signed by: Jd Bustos On 09/26/2020 00:33:43 AM
[2020-09-26] MEDS: IPRATROPIUM 0.5MG/ALBUTEROL 2.5MG INH SOL UD 3ML (DUONEB) NEB SCH ×4 (02:00→20:20)
[2020-09-26 06:00] VITALS: BP 148/68
[2020-09-26] MEDS: LEVOTHYROXINE 75MCG TABLET (0.075MG) PO SCH (06:12)
[2020-09-26 06:32] LABS: HEMATOCRIT 28.3 % (36.0-47.0); HEMOGLOBIN 9.2 g/dl (12.0-15.5); MEAN CORPUSCULAR HEMOGLOBIN 31.7 pg (27.0-33.0); MEAN CORPUSCULAR HGB CONC 32.5 g/dl (32.0-36.5); MEAN CORPUSCULAR VOLUME 97.6 fl (80.0-96.0); PLATELET COUNT, AUTOMATED 186 10^3/uL (150-450); WHITE BLOOD COUNT 10.7 10^3/uL (4.0-10.0)
[2020-09-26 06:57] LABS: CALCIUM LEVEL 7.6 MG/DL (8.8-10.2); CREATININE FOR GFR 1.29 MG/DL (0.55-1.30); GLOMERULAR FILTRATION RATE 42.9 (>39); POTASSIUM SERUM 3.7 MEQ/L (3.5-5.1)
[2020-09-26] MEDS: ADVAIR HFA 230/21MCG INHALER INH SCH ×2 (07:08→20:21)
[2020-09-26] MEDS: **hydrALAZINE** 50 MG TAB PO SCH (08:21)
[2020-09-26] MEDS: PANTOPRAZOLE 40MG TAB (PROTONIX) PO SCH (08:22)
[2020-09-26] MEDS: DULoxetine 30 MG CAP (CYMBALTA) PO SCH (08:22)
[2020-09-26] MEDS: CLOPIDOGREL 75 MG TAB PO SCH (08:22)
[2020-09-26] MEDS: NICOTINE 21MG/24HR 1 EA TRANSDERMAL TD SCH (08:23)
[2020-09-26] MEDS: HEPARIN SOD (PORCINE) 5000UNITS/ML 1ML VIAL/SYRINGE SC SCH ×2 (08:23→21:02)
--- NOTE | 2020-09-26 09:27 | CR ---
CONSULTATION DATE: 09/25/2020 REQUESTING PHYSICIAN: Radha Blackwell MD CONSULTING PHYSICIAN: Colt Curry DO REASON FOR CONSULTATION: Acute kidney injury (nonoliguric). HISTORY OF PRESENT ILLNESS: Ms. Lula Ponce is a 75-year-old female with past medical history of chronic obstructive pulmonary disease (COPD), chronic hypoxemic respiratory failure on 4 liters nasal canula at base, nursing home active smoker, frequent admissions for chronic obstructive pulmonary disease (COPD) exacerbation, also history of peripheral vascular disease, history of bladder cancer, (follows with Dr. Astudillo in the past), insulin dependent diabetes mellitus (most recent A1c of 8.8%), iron deficiency anemia, and other comorbid conditions mentioned below. The patient was at her baseline renal function on September 22 with a creatinine of 0.8 at that time. She did undergo a CT angiogram on September 22 and subsequently on September 23, and . Her creatinine has slowly crept up to 1.7 on labs today. She is on concomitant moderate dose MERE inhibitor therapy and nephrology evaluation was requested for help in the management of her acute kidney injury. PAST MEDICAL HISTORY: Baseline creatinine is around 1. The patient with underlying chronic kidney disease (CKD), stage III-A, borderline stage II, chronic back pain and spinal stenosis, peripheral vascular disease, bladder cancer, severe chronic obstructive pulmonary disease (COPD), chronic active smoker, dyslipidemia, insulin dependent diabetes mellitus, hypothyroidism, hypertension, congestive heart failure, right upper lobe lung mass, anxiety depression, iron deficiency anemia. PAST SURGICAL HISTORY: Right lower extremity angioplasty with stenting, hysterectomy, surgery for lung mass, bilateral cataract surgery. SOCIAL HISTORY: She is an active smoker. Smokes one pack per day now, started smoking age 11. FAMILY HISTORY: Significant for diabetes and heart disease. Mother age 77, history of myocardial infarction and diabetes. HOME MEDICATIONS: Amlodipine 10 mg by mouth q p.m., atorvastatin 40 mg by mouth every night at bedtime, Plavix 75 mg by mouth daily, duloxetine 60 mg by mouth daily, Breo Ellipta one puff inhaled daily, gabapentin 100 mg by mouth every night at bedtime, hydralazine 50 mg by mouth twice a day, insulin, levothyroxine 75 mcg by mouth daily, lisinopril 20 mg by mouth twice a day, metformin 500 mg by mouth twice a day, prednisone taper. ALLERGIES: SULFA, BACITRACIN, CORTIZONE, NEOMYCIN, POLYMYXIN, FLUOXETINE, TRAMADOL and RED DYE. REVIEW OF SYSTEMS: Constitutional: She denies fevers or chills. Eyes: She denies visual changes or tearing. ENT: She denies epistasis, rhinorrhea or tinnitus. Cardiac: She reports edema in her feet and ankles. She denies chest pain. She has a history of peripheral vascular disease. Respiratory: She reports nursing home chronic active smoker, chronic obstructive pulmonary disease (COPD), oxygen dependence and chronic dyspnea. Gastrointestinal (GI): She denies nausea or vomiting or diarrhea. Endocrine: She reports insulin dependent diabetes mellitus and hypothyroidism. Hematologic: She reports anemia with iron deficiency. She denies anticoagulant use. Genitourinary (): She has a history of bladder cancer. She denies dysuria or hematuria. Musculoskeletal: She reports spinal stenosis and chronic back pain. Neurologic: She denies seizures or syncope. Psychiatric: She reports anxiety, depression. The remainder of review of systems is negative or as per history of present illness. PHYSICAL EXAMINATION: Vital signs: Temperature 98.3, pulse 98, respiratory rate 18, blood pressure 126/68, saturating 98% on 2 liters nasal cannula. Urine output today was 1.3 liters. General: The patient is seen lying in bed, elderly female, awake, alert, oriented times 3, in no apparent distress. Extraocular muscles are intact. Tongue is moist. Neck is supple. Jugular veins are not elevated. Heart sounds are regular, S1, S2. There is 1+ pedal and ankle edema bilaterally. Lungs: Show bibasilar crackles and scattered and diffuse wheezing. She lives comfortable on nasal cannula. There is no accessory muscle use nor tachypnea. Abdomen: Soft and nontender. There are bowel sounds. Neurologic: She is oriented times three, interactive, conversational and cooperative with physical examination. LABORATORY DATA: Sodium 141, potassium 3.8, bicarbonate 25, BUN 47, creatinine 1.7, creatinine yesterday was 1.5, creatinine on September 23 was 1.4 and creatinine on September 22 was 0.8. Glucose 166, A1c 8.8%, transferrin saturation 13.4, iron 39, magnesium 1.8, hemoglobin 8.8, platelets 185. Blood cultures no growth for 24 hours times two sets. Chest x-ray done yesterday, there is a new infiltrate of the left lung base with an adjacent pleural effusion. INPATIENT MEDICATIONS: Levaquin 750 mg IV q 48 hours, Tylenol as needed, albuterol as needed, amlodipine 10 mg by mouth q p.m., atorvastatin 40 mg by mouth every night at bedtime, Plavix 75 mg by mouth daily, duloxetine 60 mg by mouth daily, gabapentin 100 mg by mouth every night at bedtime, heparin 5000 units subcutaneous q 12 hours, hydralazine 50 mg by mouth twice a day, hydroxyzine 10 mg by mouth every 8 hours, insulin, levothyroxine 75 mcg by mouth daily, lisinopril 20 mg by mouth twice a day, nicotine patch, Protonix 40 mg daily, Rozerem 8 mg by mouth every night at bedtime as needed insomnia, Advair 2 puffs inhaled twice a day. PROBLEMS: 1. Acute nonoliguric kidney injury superimposed on chronic kidney disease (CKD), stage II, borderline stage III-A. The patient's baseline creatinine is around 1. She was at her baseline creatinine on September 22 (creatinine was 0.8). The patient did have a contrast angiogram on September 22. She subsequently has had contrast induced nephropathy. Her creatinine on September 23, and shows a slow and steady rise along with the contrast that she received. She is also on twice a day lisinopril which I am going to hold at this point. There is no renal imaging that I see for the past several months, so we will get renal imaging as well. 2. Decompensated diastolic congestive heart failure. Echocardiogram from August 29, 2020 reviewed was grade I diastolic dysfunction and left ventricular ejection fraction of 70%. The patient has ankle edema. It is likely worsened by use of full dose amlodipine (10 mg by mouth q p.m) and also concomitant use of hydralazine. I think receiving both vasodilators increased her peripheral edema, but I am not going to keep her any diuretic at this time because she had IV contrast on September 22 and is having ongoing dye induced nephropathy since then. 3. Hypertension. Blood pressures were initially quite elevated, however, now systolic is 120s to 160s. I am going to hold lisinopril for at least one day until her creatinine starts to come down once her dye induced nephropathy starts to resolve. 4. Iron deficiency anemia. Hemoglobin is 8.8 with iron of 39 and transferrin saturation of 18%. Her blood cultures were negative. We will give her iron supplementation intravenously. Thank you for involving me in the care of Ms. Ponce. I will be happy to follow her along with you.
[2020-09-26] MEDS ORDERED: IRON SUCROSE 200 MG in NS 100 ML IV ONE (10:00)
--- NOTE | 2020-09-26 10:53 | IPNPDOC ---
Text Note Date of Service The patient was seen on 09/26/20. NOTE SUBJECTIVE: -No acute complaints, asking about discharge but without clear plan for how compliance will improve enough to avoid readmissions every 24-48h PHYSICAL EXAMINATION: Vitals: see below General: Patient is awake, alert and oriented. NAD Eyes: Conjunctiva clear, EOMI, MMM, PERRLA ENT: MMM Cardiovascular: RRR, no m/r/g Respiratory: Bibasilar crackles, no wheezing this morning, moving air well, speaking without conversational dyspnea on 2L NC Abdomen: Normoactive sounds throughout, soft, NTND Extremities: 3+ pedal edema bilaterally, has hyperkeratinization of her toes. Clubbing of fingers and toes. Neuro: Awake, alert and fully oriented, CN3-12 intact, clear speech without dysarthria. 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, chronic hypoxemic respiratory failure on 4L NC at baseline, frequent admissions for COPD exacerbation, with a history of medical non-compliance, recently started on a p rednisone taper on 09/19 , unclear if she had been taking the prednisone as prescribed, then admitted by myself on 09/22 for COPD exacerbation that resolved with resumption of steroids and we discussed compliance at length and I discharged her home yesterday after she insisted that she was at her baseline and would take meds as prescribed and as delivered by [facility] in blister packs who now returned with the same, with a clear evidence of confusion with her meds that she is self administering and continued smoking and admitted for COPD exacerbation 2/2 CAP and SU. Chronic hypoxic respiratory failure: at baseline -Patient is on home oxygen at 4L at baseline, currently on 2L -s/p solumedrol 125 x 1 -Held her pred taper, on 40 pred daily -Titrate her oxygen to saturations of 88 to 92%. -incentive spirometry -duonebs q6h -albuterol neb q4hp -advair SU: resolving -renal US was recently wnl -s/p 500cc of fluid as Cr bumped began after diuretic -consulted nephrology, giving her venofer Mild acute on chronic HFpEF: -strict I/Os -daily weights -2L/24h fluid restriction -2g sodium diet in addition to consistent carb -had TTE In 08/2020 with some mild pulm HTN and grade 1 diastolic dysfunction and normal EF Nicotine addiction: -counselled at length that her smoking is contributing to the repeat admissions for COPD exacerbation -nicotine patch 21mg/24h HTN: urgency in the ED, no home meds administered. -Continue her home blood pressure medications. -Urged ED to please give her her home meds while in the ED to keep up with her severe essential HTN -Amlodipine 10 mg p.o. QD, hydralazine 50 mg p.o. BID, lisinopril 40mg p.o. QD Chronic back pain: -We will continue gabapentin 100 mg p.o. daily -PRN acetaminophen IDDM 2: -Hypoglycemic protocol -Insulin sliding scale -20 units of levemir at night -SSI AC/HS -consistent carb diet Hypothyroidism: -continue home levothyroxine dose Osteoporosis: -Patient is on alendronate 70 mg p.o. weekly. Peripheral vascular disease s/p angioplasty/stenting: -We will continue her atorvastatin and Plavix Anxiety/depression: -We will continue her hydroxyzine PRM -continue home duloxetine DVT prophylaxis: -teds and sequentials and heparin SC Dispo: Declined for services due to non-compliance, asked me to speak with her son for family involvement, otherwise she is high risk for return within 24-48h due to high degree of non-compliance and continued smoking. VS,Fishbone, I+O VS, Fishbone, I+O Laboratory Tests 09/26/20 06:21 Vital Signs Date Time Temp Pulse Resp B/P (MAP) Pulse Ox O2 Delivery O2 Flow Rate FiO2 09/26/20 08:21 148/68 09/26/20 06:00 98.1 87 19 99 Nasal Cannula 2.0 I&O- Last 24 Hours up to 6 AM 09/26/20 06:00 Intake Total 2480 ml Output Total 2500 ml Balance -20 ml ALBA CRAWLEY MD Sep 26, 2020 08:50
[2020-09-26] MEDS: CHLORTHALIDONE 25 MG TAB PO SCH (11:41)
--- NOTE | 2020-09-26 12:13 | IPN ---
PROGRESS NOTE DATE: 09/26/2020 SUBJECTIVE: Patient is seen and examined this morning at the bedside. She complains of foot and leg edema. She otherwise has no complaints. Denies any change in her breathing. PHYSICAL EXAMINATION: VITAL SIGNS: Temperature 98.1, pulse 87, respiratory rate 19, blood pressure 148/68, saturating 99% on 2 liter nasal cannula. INTAKE/OUTPUT: Intake yesterday was 2.5 liters. Urine output yesterday was 1.3 liters. Weight in the bed scale today is not recorded. GENERAL: Patient is seen lying in bed, awake, alert, oriented x3, elderly female in no distress. HEENT: Extraocular muscles are intact. Tongue is moist. Neck is supple. Jugular veins are mildly elevated. There is a nasal cannula in place. HEART: Heart sounds are regular, S1, S2. There is 1+ edema that comes up to the mid escobar and is increased as compared to yesterday. LUNGS: Show bibasilar crackle and scattered and diffuse wheeze, but she looks comfortable on nasal cannula. There is no accessory muscle use nor tachypnea. ABDOMEN: Soft and nontender. There are bowel sounds. NEUROLOGIC: She is oriented x3, interactive and cooperative with physical exam. LABORATORY STUDIES: Today show sodium 144, potassium 3.7, bicarbonate 25, BUN 39, creatinine 1.2, glucose 78. Hemoglobin 9.2. Transferrin saturation 13%, iron 39. Magnesium 1.8. Blood cultures show no growth for 24 hours x4 sets. IMAGING: Renal ultrasound done yesterday shows atrophic right kidney only 6 cm with simple cysts, no hydronephrosis, no obstructive uropathy. INPATIENT MEDICATIONS: I discontinued her Lisinopril. I ordered Chlorthalidone 25 mg p.o. daily and I reduced the Hydralazine to 25 mg p.o. b.i.d. I ordered Venofer 200 mg I.V. x1. The remainder of her medications are unchanged as compared to yesterday. PROBLEMS: 1. Acute kidney injury superimposed on CKD stage 2 borderline stage 3A: Her baseline creatinine is around 1. Patient was at baseline creatinine on September 22 (creatinine was 0.8). She had a contrast angiogram on September 22. She subsequently had a contrast induced nephropathy in the setting of concomitant use of MERE inhibitor. Her creatinine peaked yesterday at 1.7. I stopped Lisinopril yesterday evening. She is in mild fluid overload and I am starting her on a maintenance diuretic (Chlorthalidone). Continue to hold MERE inhibitor for now. 2. Decompensated diastolic congestive heart failure: Patient has notable peripheral edema. She is on maximum dose Amlodipine and she is also on Hydralazine and these are both exacerbating her leg edema. I decreased the dose of Hydralazine and I added Chlorthalidone 25 mg daily to help diurese her. There is no need for I.V. diuretic at this time. 3. Iron deficiency anemia: She is ordered for Venofer today. 4. Hypertension: Patient is currently on Amlodipine and Hydralazine, which is worsening her leg edema. Her Hydralazine dose was decreased and she is started on Chlorthalidone 25 mg daily. 5. Atrophic right kidney: Renal imaging is reviewed for all intents and purposes, the patient appears to have a solitary functioning kidney (left kidney given that her right kidney is severely atrophic).
[2020-09-26 14:00] VITALS: BP 158/69
[2020-09-26] MEDS: LevoFLOXacin IV 750 MG in IV 1 EA IV SCH ×2 (16:24→17:00)
[2020-09-26 20:50] VITALS: BP 155/69
[2020-09-26] MEDS: LEVEMIR (INSULIN DETEMIR) 1 UNITS/0.01ML SC SCH (21:01)
[2020-09-26] MEDS: ATORVASTATIN 20 MG TAB PO SCH (21:02)
[2020-09-26] MEDS: GABAPENTIN 100 MG CAP PO SCH (21:03)
[2020-09-26] MEDS: **hydrALAZINE HCL** 25 MG TAB PO SCH (21:03)
[2020-09-27] MEDS: HumaLOG INSULIN (NovoLOG) PER UNIT SC SCH ×6 (00:26→21:00)
[2020-09-27] MEDS: IPRATROPIUM 0.5MG/ALBUTEROL 2.5MG INH SOL UD 3ML (DUONEB) NEB SCH ×4 (01:56→20:00)
[2020-09-27] MEDS: LEVOTHYROXINE 75MCG TABLET (0.075MG) PO SCH (05:44)
[2020-09-27 06:00] VITALS: BP 131/58
[2020-09-27 06:10] LABS: HEMATOCRIT 29.6 % (36.0-47.0); HEMOGLOBIN 9.5 g/dl (12.0-15.5); MEAN CORPUSCULAR HEMOGLOBIN 31.6 pg (27.0-33.0); MEAN CORPUSCULAR HGB CONC 32.1 g/dl (32.0-36.5); MEAN CORPUSCULAR VOLUME 98.3 fl (80.0-96.0); PLATELET COUNT, AUTOMATED 189 10^3/uL (150-450); RED BLOOD COUNT 3.01 10^6/uL (4.00-5.40); WHITE BLOOD COUNT 17.4 10^3/uL (4.0-10.0)
[2020-09-27 06:34] LABS: CALCIUM LEVEL 7.6 MG/DL (8.8-10.2); CREATININE FOR GFR 1.17 MG/DL (0.55-1.30); POTASSIUM SERUM 3.7 MEQ/L (3.5-5.1)
[2020-09-27] MEDS: ADVAIR HFA 230/21MCG INHALER INH SCH ×2 (07:10→20:00)
[2020-09-27] MEDS: DULoxetine 30 MG CAP (CYMBALTA) PO SCH (08:09)
[2020-09-27] MEDS: **hydrALAZINE HCL** 25 MG TAB PO SCH ×2 (08:10→21:29)
[2020-09-27] MEDS: PANTOPRAZOLE 40MG TAB (PROTONIX) PO SCH (08:10)
[2020-09-27] MEDS: CHLORTHALIDONE 25 MG TAB PO SCH (08:10)
[2020-09-27] MEDS: CLOPIDOGREL 75 MG TAB PO SCH (08:10)
[2020-09-27] MEDS: NICOTINE 21MG/24HR 1 EA TRANSDERMAL TD SCH (08:11)
[2020-09-27] MEDS: LevoFLOXacin 750 MG TABLET PO SCH (08:24)
[2020-09-27] MEDS: HEPARIN SOD (PORCINE) 5000UNITS/ML 1ML VIAL/SYRINGE SC SCH ×2 (08:24→21:29)
[2020-09-27] MEDS: predniSONE 20 MG TAB PO SCH (08:24)
--- NOTE | 2020-09-27 11:31 | IPNPDOC ---
Text Note Date of Service The patient was seen on 09/27/20. NOTE SUBJECTIVE: -No acute complaints -had symptomatic hypoglycemia after midnight coverage, recovered with PO PHYSICAL EXAMINATION: Vitals: see below General: Patient is awake, alert and oriented. NAD Eyes: Conjunctiva clear, EOMI, MMM, PERRLA ENT: MMM Cardiovascular: RRR, no m/r/g Respiratory: Trace bibasilar crackles, no wheezing this morning, moving air well, on 2l NC Abdomen: Normoactive sounds throughout, soft, NTND Extremities: 3+ pedal edema bilaterally, has hyperkeratinization of her toes. Clubbing of fingers and toes. Neuro: Awake, alert and fully oriented, CN3-12 intact, clear speech without dysarthria. 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, chronic hypoxemic respiratory failure on 4L NC at baseline, frequent admissions for COPD exacerbation, with a history of medical non-compliance, recently started on a prednisone taper on 09/19 , unclear if she had been taking the prednisone as prescribed, then admitted by myself on 09/22 for COPD exacerbation that resolved with resumption of steroids and we discussed compliance at length and I discharged her home yesterday after she insisted that she was at her baseline and would take meds as prescribed and as delivered by [facility] in blister packs who now returned with the same, with a clear evidence of confusion with her meds that she is self administering and continued smoking and admitted for COPD exacerbation 2/2 CAP and SU. Chronic hypoxic respiratory failure: at baseline -Patient is on home oxygen at 4L at baseline, currently on 2L -s/p solumedrol 125 x 1 -Held her pred taper, will give 40 pred daily -Titrate her oxygen to saturations of 88 to 92%. -incentive spirometry -duonebs q6h -albuterol neb q4hp -advair CAP: -On Levaquin for CAP SU: resolving -renal US was recently wnl -s/p 500cc of fluid as Cr bumped began after diuretic -consulted nephrology, giving her venofer Chronic HFpEF: -strict I/Os -daily weights -2L/24h fluid restriction -2g sodium diet in addition to consistent carb -had TTE In 08/2020 with some mild pulm HTN and grade 1 diastolic dysfunction and normal EF Nicotine addiction: -counselled at length that her smoking is contributing to the repeat admissions for COPD exacerbation -nicotine patch 21mg/24h HTN: urgency in the ED, no home meds administered. -Continue her home blood pressure medications. -Urged ED to please give her her home meds while in the ED to keep up with her severe essential HTN -Amlodipine 10 mg p.o. QD, hydralazine 50 mg p.o. BID, lisinopril 40mg p.o. QD Chronic back pain: -We will continue gabapentin 100 mg p.o. daily -PRN acetaminophen IDDM 2: -Hypoglycemic protocol -Insulin sliding scale -15 units of levemir QHS -SSI AC/HS -consistent carb diet Hypothyroidism: -continue home levothyroxine dose Osteoporosis: -Patient is on alendronate 70 mg p.o. weekly. Peripheral vascular disease s/p angioplasty/stenting: -We will continue her atorvastatin and Plavix Anxiety/depression: -We will continue her hydroxyzine PRM -continue home duloxetine DVT prophylaxis: -teds and sequentials and heparin SC Leukocytosis: -Likely 2/2 steroid therapy, clinically stable, will continue tx for CAP and COPD and monitor vitals Dispo: Declined for services due to non-compliance, spoke with son who is under the impression that she agreed to at least assisted living and surprised that she refused placement. He is willing to come in and discuss placement with mom and PFS together. Will make ALC at this time VS,Fishbone, I+O VS, Fishbone, I+O Laboratory Tests 09/27/20 05:57 Vital Signs Date Time Temp Pulse Resp B/P (MAP) Pulse Ox O2 Delivery O2 Flow Rate FiO2 09/27/20 06:00 96.2 79 19 131/58 (82) 96 Nasal Cannula 2.0 I&O- Last 24 Hours up to 6 AM 09/27/20 06:00 Intake Total 1100 ml Output Total 300 ml Balance 800 ml ALBA CRALWEY MD Sep 27, 2020 08:18
[2020-09-27] MEDS: ACETAMINOPHEN TAB 650MG DOSE (2X325MG) PO PRN (15:35)
[2020-09-27] MEDS ORDERED: HumaLOG INSULIN (NovoLOG) PER UNIT SC ONE ×4 (18:10→21:20)
--- NOTE | 2020-09-27 18:43 | IPN ---
PROGRESS NOTE DATE: 09/27/2020 SUBJECTIVE: Patient seen and examined this morning at the bedside. She denies any complaints. She reports her leg edema is improving. She reports her breathing feels like her usual baseline. She inquires about discharge plans. Vital signs: Temperature 96.2, pulse 79, respiratory rate 19, blood pressure 131/58, saturating 96% on 2 liters nasal cannula. Intake yesterday was 1450. Urine output yesterday was 1600. Weight in the bed scale today is not recorded. GENERAL: Patient is seen lying in bed, elderly female, awake, alert, oriented in no distress. Extraocular muscles are intact. Tongue is moist. Neck is supple. Nasal cannula is in place. Jugular veins are not elevated. Heart sounds are regular, S1, S2. LUNGS: Show diminished breath sounds but no crackle, rale, or wheeze. Comfortable on nasal cannula. ABDOMEN: Soft and nontender. EXTREMITIES: Show only 1+ edema today. It is significantly improved as compared to yesterday, and it is prominent mostly in her feet and distal escobar. NEUROLOGIC: S\he is oriented times three, interactive, conversational at baseline mentation. LABORATORY DATA: Sodium 141, potassium 3.7, bicarbonate 26, BUN 38, creatinine 1.1. Hemoglobin 9.5, platelets 189. INPATIENT MEDICATIONS: Reviewed by myself. I ordered a second dose of Venofer. Her insulin was adjusted by the primary service. She is now on oral levofloxacin 750 mg every other day, and she is also on oral steroids, prednisone 40 mg daily PROBLEMS: 1. Acute kidney injury superimposed in chronic kidney disease (CKD), stage IIIA in this patient with poorly functioning right kidney and essentially all function coming from the left kidney. Her kidney injury was in the setting of contrast nephropathy with concomitant use of angiotensin-converting enzyme (MERE) inhibitor. Her renal function has recovered back toward baseline. She is in mild fluid overload. I am holding her MERE inhibitor because of recent acute kidney injury, and she is on an oral diuretic (chlorthalidone). 2. Decompensated diastolic congestive heart failure. She has peripheral edema that has improved. I cut down the dose of hydralazine, as both of her blood pressure medications are exacerbating her leg edema (hydralazine and amlodipine), and we have her now on chlorthalidone 25 mg daily to help with diuresis. There is no need for intravenous (IV) diuretic at this time. 3. Iron deficiency anemia. She received one dose of Venofer yesterday, and another dose of Venofer has been ordered. 4. Hypertension. Patient is having leg edema worsened by amlodipine and hydralazine. The dose of hydralazine was reduced yesterday. She is also on chlorthalidone now for diuresis and blood pressure control. Her MERE inhibitor is on hold because of recent acute kidney injury and need for diuresis. 5. Chronically atrophic right kidney. Essentially all of her renal function is coming from the left kidney given the severe atrophy of the right kidney. 6. Insulin-dependent diabetes mellitus with recent significant overnight hypoglycemia. Primary team has adjusted the insulin. She is also now on oral steroids instead for her chronic obstructive pulmonary disease (COPD) exacerbation.
[2020-09-27 21:08] VITALS: BP 157/83
[2020-09-27] MEDS: LEVEMIR (INSULIN DETEMIR) 1 UNITS/0.01ML SC SCH (21:28)
[2020-09-27] MEDS: ATORVASTATIN 20 MG TAB PO SCH (21:29)
[2020-09-27] MEDS: GABAPENTIN 100 MG CAP PO SCH (21:30)
[2020-09-28] MEDS: IPRATROPIUM 0.5MG/ALBUTEROL 2.5MG INH SOL UD 3ML (DUONEB) NEB SCH ×4 (01:29→20:00)
[2020-09-28] MEDS: LEVOTHYROXINE 75MCG TABLET (0.075MG) PO SCH (06:25)
[2020-09-28] MEDS: HumaLOG INSULIN (NovoLOG) PER UNIT SC SCH ×4 (07:30→21:25)
[2020-09-28] MEDS: ADVAIR HFA 230/21MCG INHALER INH SCH ×2 (07:30→20:00)
[2020-09-28 08:01] LABS: HEMATOCRIT 29.5 % (36.0-47.0); HEMOGLOBIN 9.5 g/dl (12.0-15.5); MEAN CORPUSCULAR HEMOGLOBIN 31.4 pg (27.0-33.0); MEAN CORPUSCULAR HGB CONC 32.2 g/dl (32.0-36.5); MEAN CORPUSCULAR VOLUME 97.4 fl (80.0-96.0); PLATELET COUNT, AUTOMATED 165 10^3/uL (150-450); RED BLOOD COUNT 3.03 10^6/uL (4.00-5.40); WHITE BLOOD COUNT 8.5 10^3/uL (4.0-10.0)
[2020-09-28 08:23] LABS: CALCIUM LEVEL 8.5 MG/DL (8.8-10.2); CREATININE FOR GFR 1.01 MG/DL (0.55-1.30); GLOMERULAR FILTRATION RATE 56.9 (>39); POTASSIUM SERUM 4.2 MEQ/L (3.5-5.1)
[2020-09-28] MEDS: HEPARIN SOD (PORCINE) 5000UNITS/ML 1ML VIAL/SYRINGE SC SCH ×2 (09:59→21:23)
[2020-09-28] MEDS: DULoxetine 30 MG CAP (CYMBALTA) PO SCH (10:00)
[2020-09-28] MEDS: NICOTINE 21MG/24HR 1 EA TRANSDERMAL TD SCH (10:00)
[2020-09-28] MEDS: PANTOPRAZOLE 40MG TAB (PROTONIX) PO SCH (10:00)
[2020-09-28] MEDS: predniSONE 20 MG TAB PO SCH (10:00)
[2020-09-28] MEDS: CHLORTHALIDONE 25 MG TAB PO SCH (10:01)
[2020-09-28] MEDS: CLOPIDOGREL 75 MG TAB PO SCH (10:01)
[2020-09-28] MEDS: **hydrALAZINE HCL** 25 MG TAB PO SCH ×2 (10:01→21:22)
[2020-09-28] MEDS ORDERED: IRON SUCROSE 200 MG in NS 100 ML IV ONE (12:00)
--- NOTE | 2020-09-28 13:56 | IPN ---
PROGRESS NOTE DATE: 09/28/2020 SUBJECTIVE: Ms. Cotton is seen and examined this morning at the bedside. She has no complaints. She states that her leg edema is almost resolved. She inquires repeatedly about discharge plans. Laboratory studies show stable renal function at her usual baseline. VITAL SIGNS: Temperature 98.3, pulse 98, respiratory rate of 18, blood pressure 157/83, saturating 100% on 2 liters nasal cannula. Intake yesterday was not fully recorded. GENERAL: Patient is seen lying flat in bed, elderly female, awake, alert, oriented and in no distress. Extraocular muscles are intact. Tongue is moist. Nasal cannula is in place. Jugular veins are not elevated. HEART: Sounds are regular, S1, S2. LUNGS: Show no rales or wheeze. She is comfortable on nasal cannula. ABDOMEN: Soft and nontender. EXTREMITIES: Show only trace pedal edema. It is significantly improved as compared to 2 days ago. NEUROLOGIC: She is oriented times three, interactive, conversational, and at baseline mentation. Laboratory studies show sodium 141, potassium 4.2, bicarbonate 30, BUN 33, creatinine 1.0. Hemoglobin 9.5. INPATIENT MEDICATIONS: Reviewed by myself. Insulin was adjusted by the primary service, Otherwise, her remainder of medications is unchanged as compared to yesterday. PROBLEMS: 1. Acute kidney injury (SU) superimposed on chronic kidney disease (CKD), stage IIIA. Her acute kidney injury was secondary to contrast-induced nephropathy in the setting of concomitant angiotensin-converting enzyme (MERE) inhibitor use. Her peak creatinine was 1.7 on September 25. This was 3 days after contrast exposure (CT angiogram). Her renal function has since recovered. I stopped her MERE inhibitor. She has a solitary functioning left kidney. Her right kidney is significantly atrophic. 2. Diastolic congestive heart failure. Volume status is now well compensated. Her amlodipine and hydralazine were also predisposing her to leg edema. She is now on chlorthalidone 25 mg daily to help with blood pressure control and diuresis, and she has done well with the same. 3. Iron deficiency anemia. She received one dose of Venofer. She no longer has intravenous (IV) access. We will put her on oral iron tablet instead. 4. Hypertension. Blood pressures are fairly controlled with amlodipine, hydralazine, and chlorthalidone. Her hydralazine dose can be increased again if needed. 5. Chronically atrophic right kidney. The left kidney seems to have some compensatory hypertrophy. No intervention is needed. This is a chronic condition. 6. Insulin-dependent diabetes mellitus with recurrent hypoglycemia. Primary team is adjusting her insulin. DISPOSITION: Patient inquires in regard to discharge planning. From a nephrology point of view, she is suitable for discharge. Primary team is in discussion with patient and family regarding her optimum discharge plan.
[2020-09-28] MEDS: GABAPENTIN 100 MG CAP PO SCH (21:00)
[2020-09-28] MEDS: ATORVASTATIN 20 MG TAB PO SCH (21:20)
[2020-09-28] MEDS: LEVEMIR (INSULIN DETEMIR) 1 UNITS/0.01ML SC SCH (21:30)
[2020-09-29] VITALS (8 sets, daily range): BP systolic 148–169; BP diastolic 76–82
[2020-09-29] MEDS: IPRATROPIUM 0.5MG/ALBUTEROL 2.5MG INH SOL UD 3ML (DUONEB) NEB SCH ×3 (02:00→14:00)
[2020-09-29] MEDS: LevoFLOXacin 750 MG TABLET PO SCH (06:09)
[2020-09-29] MEDS: LEVOTHYROXINE 75MCG TABLET (0.075MG) PO SCH (06:10)
[2020-09-29] MEDS: HumaLOG INSULIN (NovoLOG) PER UNIT SC SCH ×2 (07:30→13:27)
[2020-09-29 07:31] LABS: HEMATOCRIT 28.5 % (36.0-47.0); HEMOGLOBIN 9.2 g/dl (12.0-15.5); MEAN CORPUSCULAR HGB CONC 32.3 g/dl (32.0-36.5); PLATELET COUNT, AUTOMATED 171 10^3/uL (150-450); RED BLOOD COUNT 2.97 10^6/uL (4.00-5.40); WHITE BLOOD COUNT 9.8 10^3/uL (4.0-10.0)
[2020-09-29] MEDS: ADVAIR HFA 230/21MCG INHALER INH SCH (08:00)
[2020-09-29 08:02] LABS: BLOOD UREA NITROGEN 35 MG/DL (7-18); CALCIUM LEVEL 8.2 MG/DL (8.8-10.2); CARBON DIOXIDE LEVEL 31 MEQ/L (21-32); CHLORIDE LEVEL 105 MEQ/L (98-107); CREATININE FOR GFR 0.95 MG/DL (0.55-1.30); GLOMERULAR FILTRATION RATE > 60.0 (>39); GLUCOSE, FASTING 83 MG/DL (70-100); POTASSIUM SERUM 4.1 MEQ/L (3.5-5.1); SODIUM LEVEL 139 MEQ/L (136-145)
[2020-09-29] MEDS ORDERED: CHLORTHALIDONE 12.5MG PER 1/2 TABLET PO SCH (09:00)
[2020-09-29] MEDS ORDERED: FERROUS SULFATE 325MG TAB PO SCH (09:00)
[2020-09-29] MEDS: NICOTINE 21MG/24HR 1 EA TRANSDERMAL TD SCH (09:33)
[2020-09-29] MEDS: HEPARIN SOD (PORCINE) 5000UNITS/ML 1ML VIAL/SYRINGE SC SCH (09:33)
[2020-09-29] MEDS: DULoxetine 30 MG CAP (CYMBALTA) PO SCH (09:34)
[2020-09-29] MEDS: predniSONE 20 MG TAB PO SCH (09:34)
[2020-09-29] MEDS: ACETAMINOPHEN TAB 650MG DOSE (2X325MG) PO PRN (09:34)
[2020-09-29] MEDS: PANTOPRAZOLE 40MG TAB (PROTONIX) PO SCH (09:34)
[2020-09-29] MEDS: CLOPIDOGREL 75 MG TAB PO SCH (09:34)
[2020-09-29] MEDS: **hydrALAZINE HCL** 25 MG TAB PO SCH (09:35)
[2020-09-29] MEDS ORDERED: diphenhydrAMINE 50MG/ML VIAL (J1200) IV PRN (11:55)
[2020-09-29] MEDS ORDERED: methylPREDNISolone 125MG 2ML VIAL IV PRN (11:55)
[2020-09-29] MEDS ORDERED: EPINEPHrine INJ 1 MG/ML 1ML AMP IM PRN (11:55)
--- NOTE | 2020-09-29 12:05 | IPNPDOC ---
Text Note Date of Service The patient was seen on 09/29/20. NOTE SUBJECTIVE: -No acute complaints -due to her recent covid-19 exposure, I offered her MAB given her being high risk for severe illness if she got covid due to baseline severe lung disease and is not yet fully vaccinated, has only had one shot thus far. She is agreeable to receiving the casarivimab/imdevimab infusion. -She however articulates that she plans to leave against medical advice today after her MAB infusion because she does not agree with our recommendation for placement either into assisted living vs. SNF with proven inability to provide care for self at home, administer her own meds despite pharmacy pre-packaging and high re-admission rate. PHYSICAL EXAMINATION: Vitals: see below General: Patient is awake, alert and oriented. NAD Eyes: Conjunctiva clear, EOMI, MMM, PERRLA ENT: MMM Cardiovascular: RRR, no m/r/g Respiratory: Trace bibasilar crackles, no wheezing this morning, moving air well, on 2l NC Abdomen: Normoactive sounds throughout, soft, NTND Extremities: 3+ pedal edema bilaterally, has hyperkeratinization of her toes. Clubbing of fingers and toes. Neuro: Awake, alert and fully oriented, CN3-12 intact, clear speech without dysarthria. Labs: Reviewed 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, active long-term smoker 2ppd, chronic hypoxemic respiratory failure on 4L NC at baseline, frequent admissions for COPD exacerbation, with a history of medical non-compliance, recently started on a prednisone taper on 09/19 , unclear if she had been taking the prednisone as prescribed, then admitted by myself on 09/22 for COPD exacerbation that resolved with resumption of steroids and we discussed compliance at length and I discharged her home yesterday after she insisted that she was at her baseline and would take meds as prescribed and as delivered by [facility] in blister packs who now returned with the same, with a clear evidence of confusion with her meds that she is self administering and continued smoking and admitted for COPD exacerbation 2/2 CAP and SU. COPD exacerbation i/s/o PNA and med non-compliance -Patient is on home oxygen at 4L at baseline, currently on 2L -s/p solumedrol 125 x 1 -On pred 40, will place her on 30 today as part of Q3D decrease by 10mg taper. -Titrate her oxygen to saturations of 88 to 92%. -incentive spirometry -duonebs q6h -albuterol neb q4hp -advair Chronic hypoxic respiratory failure: at baseline -Titrate her oxygen to saturations of 88 to 92%. -incentive spirometry -duonebs q6h -albuterol neb q4hp -advair CAP: -On Levaquin for CAP, day 5 Covid-19 exposure: -No symptoms, doing well -consented from MABs today -Casirivimab/imdevimab per protocol -Droplet precaution SU: resolved -renal US was recently wnl -s/p 500cc of fluid as Cr bumped began after diuretic -consulted nephrology, giving her venofer Chronic HFpEF: -strict I/Os -daily weights -2L/24h fluid restriction -2g sodium diet in addition to consistent carb -had TTE In 08/2020 with some mild pulm HTN and grade 1 diastolic dysfunction and normal EF Nicotine addiction: -counselled at length that her smoking is contributing to the repeat admissions for COPD exacerbation -nicotine patch 21mg/24h HTN: urgency in the ED, no home meds administered. -Continue her home blood pressure medications. -Urged ED to please give her her home meds while in the ED to keep up with her severe essential HTN -Amlodipine 10 mg p.o. QD, hydralazine 50 mg p.o. BID, lisinopril 40mg p.o. QD Chronic back pain: -We will continue gabapentin 100 mg p.o. daily -PRN acetaminophen IDDM 2: -Hypoglycemic protocol -Insulin sliding scale -15 units of levemir QHS -SSI AC/HS -consistent carb diet Hypothyroidism: -continue home levothyroxine dose Osteoporosis: -Patient is on alendronate 70 mg p.o. weekly. Peripheral vascular disease s/p angioplasty/stenting: -We will continue her atorvastatin and Plavix Anxiety/depression: -We will continue her hydroxyzine PRM -continue home duloxetine DVT prophylaxis: -teds and sequentials and heparin SC Leukocytosis: -Likely 2/2 steroid therapy, clinically stable, will continue tx for CAP and COPD and monitor vitals Dispo: ALC status getting MABs today for recent covid-19 exposure. Tells me that she plans to sign out AMA and return home rather than be placed. VS,William, I+O VS, William, I+O Laboratory Tests 09/29/20 07:08 Vital Signs Date Time Temp Pulse Resp B/P (MAP) Pulse Ox O2 Delivery O2 Flow Rate FiO2 09/29/20 09:35 169/79 09/29/20 09:00 2.0 09/29/20 06:08 97.9 92 16 98 Nasal Cannula I&O- Last 24 Hours up to 6 AM 09/29/20 06:00 Intake Total 818 ml Balance 818 ml ALBA CRAWLEY MD Sep 29, 2020 12:04
[2020-09-29] MEDS ORDERED: CASIRIVIMAB/IMDEVIMAB 1,200 MG in NS 250 ML IV ONE (14:00)
[2020-09-29] MEDS: hydrOXYzine 10 MG TAB PO PRN (14:40)
== END 2020-09-29 18:20 | disposition left against medical advice (07) | DRG 682 ==
LOC: M ED 13:29 → M ED INP 16:41 → ENRESERV 17:05 → M MS5PR 18:41
PROVIDERS: ADMIT Internal Medicine; ATTEND Internal Medicine
DX: N17.9 Acute kidney failure, unspecified (principal); J18.9 Pneumonia, unspecified organism; I50.33 Acute on chronic diastolic (congestive) heart failure; J44.1 Chronic obstructive pulmonary disease with (acute) exacerbation; J96.11 Chronic respiratory failure with hypoxia; I13.0 Hypertensive heart and chronic kidney disease with heart failure and stage 1 through stage 4 chronic kidney disease, or unspecified chronic kidney disease; J44.0 Chronic obstructive pulmonary disease with (acute) lower respiratory infection; Z99.81 Dependence on supplemental oxygen; E11.51 Type 2 diabetes mellitus with diabetic peripheral angiopathy without gangrene; E78.5 Hyperlipidemia, unspecified; F41.9 Anxiety disorder, unspecified; N18.31 Chronic kidney disease, stage 3a; E03.9 Hypothyroidism, unspecified; F32.9 Major depressive disorder, single episode, unspecified; R91.8 Other nonspecific abnormal finding of lung field; I16.0 Hypertensive urgency; E11.649 Type 2 diabetes mellitus with hypoglycemia without coma; N26.1 Atrophy of kidney (terminal); D50.9 Iron deficiency anemia, unspecified; M81.0 Age-related osteoporosis without current pathological fracture; Z95.820 Peripheral vascular angioplasty status with implants and grafts; Z20.822 Contact with and (suspected) exposure to COVID-19; Z91.14 Patient's other noncompliance with medication regimen; Z91.19 Patient's noncompliance with other medical treatment and regimen; Z79.02 Long term (current) use of antithrombotics/antiplatelets; Z79.4 Long term (current) use of insulin; Z85.51 Personal history of malignant neoplasm of bladder; Z79.899 Other long term (current) drug therapy; Z88.8 Allergy status to other drugs, medicaments and biological substances; Z88.5 Allergy status to narcotic agent; Z88.2 Allergy status to sulfonamides; Z98.41 Cataract extraction status, right eye; Z98.42 Cataract extraction status, left eye

== ENCOUNTER 2020-10-01 19:44 | Inpatient (IN) | payer MEDICARE ==
[~2020-10-01] VITALS: Ht 157.5 cm; Wt 58.8 kg
[~2020-10-01 19:44] MED LIST changes: +VENTAER INH
[2020-10-01] MEDS ORDERED: COMBIVENT RESPIMAT 100-20MCG INHALER 4GM INH STA (20:06)
[2020-10-01 20:16] LABS: BASO # 0.1 10^3/uL (0.0-0.2); BASO % 0.3 % (0.0-1.0); EOS # 0.1 10^3/uL (0.0-0.5); EOS % 0.7 % (0.0-3.0); HEMATOCRIT 27.5 % (36.0-47.0); HEMOGLOBIN 8.9 g/dl (12.0-15.5); LYMPH % 6.7 % (24.0-44.0); MEAN CORPUSCULAR HEMOGLOBIN 31.7 pg (27.0-33.0); MEAN CORPUSCULAR HGB CONC 32.4 g/dl (32.0-36.5); MEAN CORPUSCULAR VOLUME 97.9 fl (80.0-96.0); MONO # 0.7 10^3/uL (0.0-0.8); MONO % 4.7 % (2.0-8.0); NEUTROPHILS # 12.7 10^3/uL (1.5-8.5); PLATELET COUNT, AUTOMATED 186 10^3/uL (150-450); RED BLOOD COUNT 2.81 10^6/uL (4.00-5.40); WHITE BLOOD COUNT 14.7 10^3/uL (4.0-10.0)
--- NOTE | 2020-10-01 20:21 | REP ---
INDICATION: DYSPNEA/COUGH COMPARISON: 09/24/2020 TECHNIQUE: Portable AP view of the chest FINDINGS: The mediastinum and cardiac silhouette are stable and within normal limits for portable technique. Lung ferrell demonstrate chronic changes. Superimposed right upper lobe and subtle bibasilar atelectasis and possible small pleural reactions cannot be excluded. IMPRESSION: Chronic changes. Cannot exclude superimposed acute right upper lobe and bilateral lower lobe opacities. <Electronically signed by Danis Greenfield > 10/01/20 2017
[2020-10-01 20:56] LABS: ACETONE/KETONE 1.34 MG/DL (<2.81); ALBUMIN 2.1 GM/DL (3.2-5.2); ALT/SGPT 34 U/L (12-78); BILIRUBIN,DIRECT < 0.1 MG/DL (0.0-0.2); BILIRUBIN,TOTAL 0.2 MG/DL (0.2-1.0); BLOOD UREA NITROGEN 29 MG/DL (7-18); CALCIUM LEVEL 7.2 MG/DL (8.8-10.2); CARBON DIOXIDE LEVEL 25 MEQ/L (21-32); CHLORIDE LEVEL 101 MEQ/L (98-107); CK-MB VALUE MASS 2.3 NG/ML (<3.6); CPK CREATINE PHOSPHOKINASE 41 U/L (26-192); CREATININE FOR GFR 1.55 MG/DL (0.55-1.30); GLOMERULAR FILTRATION RATE 34.7 (>39); GLUCOSE, FASTING 735 MG/DL (70-100); MB/CK RELATIVE INDEX 5.61 (< OR =4); POTASSIUM SERUM 4.5 MEQ/L (3.5-5.1); SODIUM LEVEL 134 MEQ/L (136-145); TOTAL PROTEIN 4.7 GM/DL (6.4-8.2); TROPONIN I 0.04 NG/ML (< 0.10)
[2020-10-01] MEDS ORDERED: LEVEMIR (INSULIN DETEMIR) 1 UNITS/0.01ML SC SCH (21:00)
[2020-10-01] MEDS ORDERED: HumuLIN R (REGULAR) INSULIN (NovoLIN R) **100U/ML** PER UNIT IV STA (21:21)
[2020-10-01 21:24] LABS: RSV AMPLIFICATION NEGATIVE (NEGATIVE)
[2020-10-01] MEDS ORDERED: ALBUTEROL SULFATE 2.5 MG/0.5 ML INH NEB SOLN NEB PRN (23:10)
[2020-10-01] MEDS ORDERED: NS 1,000 ML IV SCH (23:10)
[2020-10-01] MEDS ORDERED: med rec comment (23:16)
[2020-10-01] MEDS ORDERED: HOME MED LIST COMPLETE! XX SCH (23:20)
--- NOTE | 2020-10-01 23:20 | HPEPDOC ---
[facility] Medical History & Physical Date of Admission Oct 01, 2020 Date of Service: Oct 01, 2020 Primary Care Physician: Dea Rodgers DO Attending Physician: AALIYAH KWAN MD History and Physical TIME OF SERVICE: 11:55pm CHIEF COMPLAINT: dyspnea HISTORY OF PRESENT ILLNESS: , a 75 yr old F, was admitted to our facility once in August and twice this month for acute COPD. Today she called EMS because she was short of breath and her glucose was high. Per ER intake notes she was not very forthcoming with information but she mentioned that her house was too damn hot. At the time of my assessment she told me that she didnt feel well, corroborated the information above and added that while she was obtaining an x-ray she lost consciousness and hurt her left hand. She was not sure if she has eaten a lot of sugar and told me to call ([phone]) to obtain information about her diet. She is not sure which medications she takes but she showed me packaging from bubble wrapped medications with the list of the medications on the back; prednisone was not listed among the medications. 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 HOME MEDICATIONS: Please see below. PHYSICAL EXAMINATION: Vital Signs Date Time Temp Pulse Resp B/P (MAP) Pulse Ox O2 Delivery O2 Flow Rate FiO2 10/01/20 20:05 142/67 (92) 10/01/20 20:10 Nasal Cannula 2.0 10/01/20 20:14 84 99 10/01/20 20:52 18 10/01/20 23:42 97.3 GENERAL APPEARANCE: slim build /appears chronically ill / slightly anxious HEENT: EOMI / MMM&P /NC in place CARDIOVASCULAR: RRR/NMRG / LLE is more swollen when c/w right (this is not new according to the patient) LUNGS: no t coughing /she is using accessory muscles to breath / she has expiratory wheezing ABDOMEN: contour flat /soft & NT MUSCULOSKELETAL: NCAT / CLARIBEL x 4 extremities INTEGUMENT: slightly pale /not diaphoretic NEUROLOGICAL: CN 2-12 grossly intact / speech not dysarthric PSYCHIATRIC: A&O / able to understand and follow all commands LABORATORY DATA: IMAGING: Chest xray IMPRESSION: Chronic changes. Cannot exclude superimposed acute right upper lobe and bilateral lower lobe opacities. MICROBIOLOGY: Respiratory panel neg ASSESSMENT: is a 75 yr old w a hx of Chronic back pain / Spinal stenosis, Osteoporosis L4 compression fx, PVD, CKD 3, Severe COPD 2/2 tobacco abuse, PVD, DLP, IDDM, Hypothyroidism, HTN, HFpEF, & Anxiety/depression who is admitted for management of dyspnea, acute COPD & SU; while in the ER she had an episode of syncope. PLAN: 1 Dyspnea 2/2 Acute COPD The trigger is likely the humidity/heat and tobacco abuse Her BAP-65 Score to predict mortality in acute COPD IS 1 which puts her in Class III. She has a 2.2% risk of in hospital mortality and a 1.2% risk of requiring intubation. Plan: admit to PCU / supplemental O2 / continuous pulse oximetry / aspiration precautions / pending VBG we can will determine if she needs BIPAP / solumedrol now / DuoNeb Q6H, Albuterol Q1HP, Prednisone / smoking cessation education / unfortunately the Pulm Rehab program is on hold because of the pandemic / because of her history of depression and anxiety, I dont think she is a candidate for Roflumilast 2 Uncontrolled IDDM with hyperglycemia and neuropathy Likely 2/2 non-compliance w meds & steroid use during recent hospital admission Her current serum glucose is in the 300s there doesnt meet criteria to diagnose HHS Her A1C was 8.8% in August Plan: diabetic diet / f/u accuchecks / hypoglycemia protocol / sliding scale insulin / hold oral anti-glycemics / c/w Levemir 20 units QHS / her PCP may consider out pt Endo referral to switch the patient from basal bolus injection to continuous subcutaneous insulin infusion which has been shown to produced small improvements in A1C, improve QOL and reduce episodes of severe hypoglycemia / c/w gabapetin 3 SU on CKD3 This is likely 2/2 dehydration from hyperglycemia & warm weather in the setting of metformin and Lisinopril use. Plan: monitor UOP / IVF / f/u Ulytes & renal US / hold nephrotoxic drugs / will not give IVF because she was treated for acute CHF and congestive hepatopathy a few days ago 4 Syncope Plan: check orthostats / f/u CT head / fall precautions 5 Leukocytosis Plan: f/u 2 view chest xray & UA 6 Macrocytic Anemia 2/2 COPD +/- B12 deficiency from metformin use Plan: trend Hg & f/u B12 7 Left hand pain Plan: f/u xray of hand / acetaminophen 8 Chronic HFpEF (grade 1) w Pulm HTN (PASP 39) Clinically euvolemic (no BLE edema or crackles) Her weight to day is 50kg; she was 52.7 kg on Sep 24 Plan: monitor weight 9 Peripheral vascular disease Plan: clopidogrel & atorvastatin /smoking cessation education 10 Hypothyroidism Plan: levothyroxine 11 Essential HTN Plan: amlodipine & hydralazine/ Lisinopril on hold 12 Chronic back pain / Spinal stenosis Plan: acetaminophen 13 Anxiety/depression Plan: duloxetine & hydroxyzine 14 Tobacco abuse Plan: smoking cessation education DVT px w Heparin bc of low GFR (Clarisa Prediction Score to determine the in- patient risk of VTE & need for anticoagulation is 6. Individuals with a Clarisa Score <4 are low risk of VTE and thromboprophylaxis should be considered on a c ase-by-case basis while individuals with a Clarisa score >4 are high risk for VTE and will likely benefit from thromboprophylaxis unless the patient has major contraindication such as major bleeding or thrombocytopenia). Dispo: home after at least 2 midnights stay Her LACE Index Score is 16 points which indicates that she is at high risk for re-admission or within the next 30 days. Home Medications Scheduled Amlodipine Besylate (Amlodipine Besylate) 10 Mg Tablet, 10 MG PO QPM Atorvastatin Calcium (Atorvastatin Calcium) 40 Mg Tablet, 40 MG PO QHS Clopidogrel Bisulfate (Plavix) 75 Mg Tablet, 75 MG PO DAILY Duloxetine HCl (Duloxetine HCl) 60 Mg Capsule.dr, 60 MG PO DAILY Fluticasone/Vilanterol (Breo Ellipta 200-25 Mcg INH) 1 Each Blst.w.dev, 1 PUFF INH DAILY Gabapentin (Gabapentin) 100 Mg Capsule, 100 MG PO QHS Hydralazine HCl (Hydralazine HCl) 50 Mg Tablet, 50 MG PO BID 0800, 1700 Insulin Detemir (Levemir Flextouch) 100 Unit/1 Ml Insuln.pen, 20 UNIT SC QPM Levothyroxine Sodium (Levothyroxine Sodium) 75 Mcg Tablet, 75 MCG PO DAILY Lisinopril (Lisinopril) 20 Mg Tablet, 20 MG PO BID 0800, 1700 Metformin HCl (Metformin HCl) 500 Mg Tablet, 500 MG PO BID 0800, 1700 Scheduled PRN Albuterol Sulfate (Ventolin Hfa) 18 Gm Hfa.aer.ad, 2 PUFFS INH QID PRN for SHORTNESS OF BREATH Hydroxyzine HCl (Hydroxyzine HCl) 10 Mg Tablet, 10 MG PO Q8H PRN for ANXIETY Miscellaneous Medications [med rec comment] pt unsure of meds and last doses. used external history and last discharge from 09/25/20 Allergies Coded Allergies: Sulfa (Sulfonamide Antibiotics) (Verified Allergy, Mild, RASH, 09/22/20) bacitracin (Verified Allergy, Mild, RASH, 09/22/20) cortisone (Verified Allergy, Mild, RASH, 09/22/20) neomycin (Verified Allergy, Mild, RASH, 09/22/20) polymyxin B (Verified Allergy, Mild, RASH, 09/22/20) red dye (Unverified Allergy, Mild, rash OCCURRED ONCE WITH CAPSULE MED NO OTHER PROBLEMS WIT, 09/22/20) fluoxetine (Unverified Allergy, Unknown, 09/22/20) tramadol (Unverified Allergy, Unknown, 09/22/20) HAS HAD OXYCODONE BEFORE WITHOUT ISSUE A-FIB/CHADSVASC A-FIB History Current/History of A-Fib/PAF?: No Current PO Anticoag Therapy: No AALIYAH KWAN MD Oct 01, 2020 23:20
[2020-10-01 23:39] LABS: MAGNESIUM LEVEL 1.4 MG/DL (1.8-2.4)
[2020-10-02] VITALS (12 sets, daily range): BP systolic 113–182; BP diastolic 58–84
[2020-10-02] MEDS ORDERED: MOM 30ML SUSPENSION UDC PO PRN
[2020-10-02] MEDS ORDERED: MAALOX 30 ML SUSP *UDC PO PRN
[2020-10-02] MEDS ORDERED: MAG SULF 1GM/100ML (MAG RUN) 1 GM in IV 1 EA IV ONE ×2
--- NOTE | 2020-10-02 00:12 | REPVR ---
PROCEDURE INFORMATION: Exam: XR Chest Exam date and time: 10/01/2020 11:42 PM Age: 75 years old Clinical indication: Shortness of breath; Additional info: Dyspnea TECHNIQUE: Imaging protocol: XR of the chest. Views: 2 views. COMPARISON: CR PORTABLE CHEST X-RAY 10/01/2020 8:06 PM FINDINGS: Lungs: Degree of inflation of the lungs is normal. No evidence of pulmonary edema. No focal airspace process. No concerning parenchymal lung mass. Plaque-like opacity along the lateral right upper hemithorax pleural surface is unchanged since the recent prior CT Pleural spaces: No pleural effusion or pneumothorax. Heart/Mediastinum: Cardiac silhouette appears normal. No mediastinal adenopathy or hilar mass. Bones/joints: Osseous structures show no acute or concerning abnormality. IMPRESSION: No acute cardiopulmonary process or interval change. Electronically signed by: Jd Bustos On 10/02/2020 00:11:51 AM
--- NOTE | 2020-10-02 00:26 | REPVR ---
PROCEDURE INFORMATION: Exam: CT Head Without Contrast Exam date and time: 10/02/2020 12:13 AM Age: 75 years old Clinical indication: Other: Syncope TECHNIQUE: Imaging protocol: Computed tomography of the head without contrast. Radiation optimization: All CT scans at this facility use at least one of these dose optimization techniques: automated exposure control; mA and/or kV adjustment per patient size (includes targeted exams where dose is matched to clinical indication); or iterative reconstruction. COMPARISON: CT Head without contrast 09/22/2020 12:23 PM FINDINGS: Brain: No intracranial mass, focal mass effect or midline shift. No acute intracranial hemorrhage. Mild decreased attenuation in periventricular/centrum semiovale white matter. No focal effacement of cortical sulci to indicate acute cortical infarct. Prominent ventricles and CSF spaces suggest parenchymal volume loss. Paranasal sinuses: Visualized paranasal sinuses are unremarkable. Mastoid air cells: Mastoid air cells are normally aerated. Orbital cavity: Visualized globes and orbits are unremarkable. Bones/joints: No calvarial fracture or destructive process. Soft tissues: No focal extracranial soft tissue swelling. IMPRESSION: 1. No acute intracranial abnormality. 2. Atrophy and chronic microangiopathic change in supratentorial white matter. Electronically signed by: Jd Bustos On 10/02/2020 00:25:56 AM
--- NOTE | 2020-10-02 00:28 | REPVR ---
PROCEDURE INFORMATION: Exam: US Retroperitoneal Limited, Kidneys Exam date and time: 10/02/2020 12:11 AM Age: 75 years old Clinical indication: Condition or disease; Other: Cameron TECHNIQUE: Imaging protocol: Real-time ultrasound of the retroperitoneum with image documentation. Examination was focused on the kidneys. COMPARISON: US Renal 09/25/2020 11:18 PM FINDINGS: Right kidney: Long axis measurement 7.0 cm. Thin parenchymal echotexture consistent with atrophy. Simple fluid density 17 mm right renal cyst. No stone or perinephric fluid. Left kidney: 12.4 cm long axis measurement. Normal parenchymal thickness and echotexture. No perinephric fluid. No stone or hydronephrosis Urinary bladder: Normally distended. No intraluminal filling defect or finding of concern IMPRESSION: Atrophic right kidney with solitary simple cyst. Normal left kidney and bladder Electronically signed by: Jd Bustos On 10/02/2020 00:28:25 AM
[2020-10-02] MEDS ORDERED: methylPREDNISolone 125MG 2ML VIAL IV ONE (00:30)
[2020-10-02 00:36] LABS: OSMOLALITY SERUM 319 MOSM/KG (280-301)
--- NOTE | 2020-10-02 00:42 | REPVR ---
PROCEDURE INFORMATION: Exam: XR Left Hand Exam date and time: 10/02/2020 12:30 AM Age: 75 years old Clinical indication: Pain; Hand; Left; Additional info: Fall / hand pain TECHNIQUE: Imaging protocol: XR Left hand. Views: 3 or more views. COMPARISON: No relevant prior studies available. FINDINGS: Bones/joints: Bony structures are aligned normally. Bones appear diffusely demineralized. No acute fracture. Benign capsular ossification, ulnar aspect of the 5th proximal phalanx distal aspect; No concerning osseous lesion. Polyarticular degenerative joint space narrowing and osteophyte formation indicating benign osteoarthrosis, most significant involving the thumb base and PIP joints. No erosive changes. Soft tissues: No focal soft tissue swelling. No evidence of soft tissue laceration or opaque foreign body. IMPRESSION: 1. No acute fracture or osseous malalignment. 2. Skeletal demineralization and mild polyarticular degenerative osteoarthrosis Electronically signed by: Jd Bustos On 10/02/2020 00:41:10 AM
[2020-10-02 01:31] LABS: VENOUS BASE EXCESS 1.2 (-2.0-2.0); VENOUS HCO3 26.4 MEQ/L (23.0-27.0); VENOUS O2 SATURATION 96.6 % (60.0-80.0); VENOUS PARTIAL PRESSURE O2 99.1 mmHg (30.0-50.0); VENOUS PH 7.387 UNITS (7.330-7.430); VENOUS STANDARD HCO3 25.5 MEQ/L; VENOUS TOTAL CO2 27.8 MEQ/L (24.0-28.0)
[2020-10-02] MEDS: **hydrALAZINE** 50 MG TAB PO SCH ×3 (01:50→20:06)
[2020-10-02] MEDS: ATORVASTATIN 20 MG TAB PO SCH ×2 (01:56→20:06)
[2020-10-02] MEDS: GABAPENTIN 100 MG CAP PO SCH ×2 (01:56→20:06)
[2020-10-02] MEDS: IPRATROPIUM 0.5MG/ALBUTEROL 2.5MG INH SOL UD 3ML (DUONEB) NEB SCH ×4 (02:00→20:00)
[2020-10-02] MEDS: HEPARIN SOD (PORCINE) 5000UNITS/ML 1ML VIAL/SYRINGE SQ SCH ×3 (04:44→21:33)
[2020-10-02] MEDS: ACETAMINOPHEN TAB 650MG DOSE (2X325MG) PO PRN ×2 (04:44→21:33)
[2020-10-02] MEDS: LEVOTHYROXINE 75MCG TABLET (0.075MG) PO SCH (04:44)
[2020-10-02] MEDS ORDERED: LIDOCAINE 5% (LIDODERM) PATCH TD ONE (05:15)
--- NOTE | 2020-10-02 05:37 | ECGEPIP ---
[facility] - ED Test Date: 2020-10-01 Pat Name: ELA LIVINGSTON Department: Room: - Gender: Female Investigations Director: NAINA : 1945 Requested By: NALDO Lovelace Order Number: [id number] Reading MD: Mat Toussaint Measurements Intervals [place] Rate: 84 P: 62 WV: 136 QRS: 0 QRSD: 104 T: 109 QT: 398 QTc: 470 Interpretive Statements Normal sinus rhythm LVH WITH STRAIN PATTERN Septal infarct , age undetermined Inferior infarct , age undetermined SIMILAR TO 09/24/20 Electronically Signed on 10-02-2020 5:37:30 EDT by Mat Toussaint
[2020-10-02 05:41] LABS: HEMATOCRIT 28.7 % (36.0-47.0); HEMOGLOBIN 9.4 g/dl (12.0-15.5); MEAN CORPUSCULAR HEMOGLOBIN 31.5 pg (27.0-33.0); MEAN CORPUSCULAR HGB CONC 32.8 g/dl (32.0-36.5); MEAN CORPUSCULAR VOLUME 96.3 fl (80.0-96.0); PLATELET COUNT, AUTOMATED 165 10^3/uL (150-450); RED BLOOD COUNT 2.98 10^6/uL (4.00-5.40); WHITE BLOOD COUNT 14.4 10^3/uL (4.0-10.0)
[2020-10-02] MEDS ORDERED: HumaLOG INSULIN (NovoLOG) PER UNIT SC SCH ×3 (07:30→21:00)
[2020-10-02] MEDS ORDERED: DEXTROSE 50% 50 ML SYRINGE IV PRN (07:55)
[2020-10-02] MEDS ORDERED: GLUCOSE 4GM CHEW TABLET PO PRN (07:55)
[2020-10-02] MEDS ORDERED: GLUCAGON INJ 1MG VIAL SC PRN (07:55)
[2020-10-02 08:00] LABS: CALCIUM LEVEL 8.2 MG/DL (8.8-10.2); CREATININE FOR GFR 1.09 MG/DL (0.55-1.30); GLOMERULAR FILTRATION RATE 52.1 (>39); POTASSIUM SERUM 4.1 MEQ/L (3.5-5.1)
[2020-10-02] MEDS: PANTOPRAZOLE 40MG VIAL (C9113 PER 1) IV SCH (08:15)
[2020-10-02] MEDS: CLOPIDOGREL 75 MG TAB PO SCH (08:15)
[2020-10-02] MEDS: DULoxetine 30 MG CAP (CYMBALTA) PO SCH (08:16)
[2020-10-02] MEDS: predniSONE 20 MG TAB PO SCH (08:16)
[2020-10-02] MEDS ORDERED: LEVEMIR (INSULIN DETEMIR) 1 UNITS/0.01ML SC SCH (09:00)
[2020-10-02] MEDS ORDERED: ENOXAPARIN 40MG/0.4ML SYRINGE (J1650 PER 10MG) SC SCH (09:00)
[2020-10-02] MEDS ORDERED: HumuLIN R (REGULAR) INSULIN (NovoLIN R) **100U/ML** PER UNIT SC STA (09:22)
[2020-10-02 09:28] LABS: MAGNESIUM LEVEL 1.9 MG/DL (1.8-2.4)
[2020-10-02 11:33] LABS: ACETONE/KETONE 1.98 MG/DL (<2.81)
[2020-10-02] MEDS ORDERED: INSULIN REGULAR IN 0.9 % NACL 100 UNIT in IV 1 EA IV SCH ×2 (11:55)
--- NOTE | 2020-10-02 12:00 | IPNPDOC ---
Date Seen The patient was seen on 10/02/20. Progress Note 6SUBJECTIVE: Patient is a -year-old [RACE] [GENDER] with OBJECTIVE PHYSICAL EXAMINATION: VITAL SIGNS: Please see below. GENERAL: HEENT: CARDIOVASCULAR: . RESPIRATORY: . ABDOMINAL: EXTREMITIES: NEUROLOGICAL: PSYCHOLOGICAL: LABORATORY DATA, IMAGING STUDIES, MICROBIOLOGY: Please see below. Echocardiogram: . DVT prophylaxis ordered?: ASSESSMENT AND PLAN: This is a -year-old [RACE] [GENDER] with . PROBLEMS: 1. : . 2. : . 3. : . DISPOSITION: . VS, I&O, 24H, [facility] Vital Signs/I&O Vital Signs Date Time Temp Pulse Resp B/P (MAP) Pulse Ox O2 Delivery O2 Flow Rate FiO2 10/02/20 08:00 96.9 87 20 148/67 (94) 93 Nasal Cannula 2.0 I&O- Last 24 Hours up to 6 AM 10/02/20 06:00 Intake Total 2100 ml Balance 2100 ml Laboratory Data 24H LABS Laboratory Tests 2 10/01/20 20:07: Coronavirus (COVID-19)(PCR) NEGATIVE, Influenza Type A (RT-PCR) NEGATIVE, Influenza Type B (RT-PCR) NEGATIVE, Respiratory Syncytial Virus (PCR) NEGATIVE 10/01/20 20:08: Immature Granulocyte % (Auto) 1.6, Neutrophils (%) (Auto) 86.0H, Lymphocytes (%) (Auto) 6.7L, Monocytes (%) (Auto) 4.7, Eosinophils (%) (Auto) 0.7, Basophils (%) (Auto) 0.3, Neutrophils # (Auto) 12.7H, Lymphocytes # (Auto) 1.0L, Monocytes # (Auto) 0.7, Eosinophils # (Auto) 0.1, Basophils # (Auto) 0.1, Nucleated Red Blood Cells % (auto) 0.0, Anion Gap 8, Glomerular Filtration Rate 34.7L, Osmolality 319H, Calcium Level 7.2L, Magnesium Level 1.4L, Total Bilirubin 0.2, Direct Bilirubin < 0.1, Aspartate Amino Transf (AST/SGOT) 26, Alanine Aminotransferase (ALT/SGPT) 34, Alkaline Phosphatase 102, Total Creatine Kinase 41, Creatine Kinase MB 2.3, Creatine Kinase MB Relative Index 5.61H, Troponin I 0.04, Total Protein 4.7L, Albumin 2.1L, Albumin/Globulin Ratio 0.8L, B- Hydroxybutyrate 1.34 10/01/20 23:43: Bedside Glucose (Misc Panel) 304H 10/02/20 00:51: Bedside Glucose (Misc Panel) 239H 10/02/20 01:27: Blood Gas Bicarbonate Standard 25.5, Venous Blood pH 7.387, Venous Blood Partial Pressure CO2 45.0, Venous Blood Partial Pressure O2 99.1H, Venous Blood Total Carbon Dioxide 27.8, Venous Blood HCO3 26.4, Venous Blood Oxygen Saturation 96.6H, Venous Blood Base Excess 1.2, Total Creatine Kinase 48 10/02/20 05:13: Nucleated Red Blood Cells % (auto) 0.0, Anion Gap 7L, Glomerular Filtration Rate 52.1, Calcium Level 8.2L, Magnesium Level 1.9 10/02/20 07:47: Bedside Glucose (Misc Panel) 487H 10/02/20 09:16: Bedside Glucose (Misc Panel) 492H 10/02/20 10:03: Bedside Glucose Confirm (Misc) 559*H, B-Hydroxybutyrate 1.98 10/02/20 10:38: Bedside Glucose (Misc Panel) 511*H CBC/BMP Laboratory Tests 10/01/20 20:08 10/02/20 05:13 MAGGIE FINK MD Oct 02, 2020 12:00
[2020-10-02 12:22] LABS: ABG BASE EXCESS -3.9 (-2.0-2.0); ABG HCO3 20.6 MEQ/L (22.0-26.0); ABG O2 SATURATION 98.1 % (95.0-99.0); ABG PARTIAL PRESSURE CO2 35.3 mmHg (35.0-45.0); ABG PARTIAL PRESSURE O2 127.4 mmHg (75.0-100.0); ABG STANDARD HCO3 21.2 MEQ/L (22.0-26.0); ABG TOTAL CO2 21.6 MEQ/L (23.0-31.0); ABG pH (ARTERIAL) 7.383 UNITS (7.350-7.450)
[2020-10-02] MEDS ORDERED: NS 1,000 ML IV ONE (13:00)
[2020-10-02 13:10] LABS: MAGNESIUM LEVEL 1.9 MG/DL (1.8-2.4); PHOSPHORUS LEVEL 2.8 MG/DL (2.5-4.9)
[2020-10-02 13:16] LABS: ALBUMIN 2.5 GM/DL (3.2-5.2); BILIRUBIN,TOTAL 0.2 MG/DL (0.2-1.0); CALCIUM LEVEL 8.8 MG/DL (8.8-10.2); CREATININE FOR GFR 1.33 MG/DL (0.55-1.30); GLOMERULAR FILTRATION RATE 41.4 (>39); POTASSIUM SERUM 4.1 MEQ/L (3.5-5.1); TOTAL PROTEIN 6.1 GM/DL (6.4-8.2)
[2020-10-02] MEDS ORDERED: NS 1,000 ML IV SCH (13:45)
--- NOTE | 2020-10-02 14:24 | IPNPDOC ---
Date Seen The patient was seen on 10/02/20. Progress Note SUBJECTIVE: Patient was seen and examined at bedside. She is alert oriented x3. Appears to be comfortable in bed. She denies any chest pain shortness of breath potation's fevers chills diarrhea. Her blood sugars remain to be elevated in the 400s. Patient reports to me that she had a syncopal episode at home. Does not recall prior episodes does not recall head injury. OBJECTIVE PHYSICAL EXAMINATION: VITAL SIGNS: please see below General: NAD, comfortable HEENT: PERRLA, EOMI, sclerae clear Neck: supple, normal ROM, no JVD Respiratory: lungs CTAB, no wheeze, no rales, no crackles CVS: RRR, normal S1, S2, no murmurs Abdo: soft, no masses, no hepatosplenomegaly, BS+, no rebound tenderness Extremities: no edema, pulses 2+ MSK: no joint deformities, normal ROM Neuro: no focal neuro deficits, moving all 4 extremities, CN2-12 intact. Strength 5/5 in all 4 extremities. No nystagmus. Psych: calm, cooperative, AAO x 3 LABORATORY DATA, IMAGING STUDIES, MICROBIOLOGY: Please see below. Echocardiogram: Last echo from 09/08/20: Normal sinus rhythm without intraventricular conduction disturbance. Somewhat challenging study in light of the patient's known pulmonary disease but diagnostic useful information was still obtained. M-mode and two-dimensional echocardiography was performed with pulse, continuous wave, color flow, and tissue Doppler studies. Borderline concentric left ventricular hypertrophy with hyperdynamic wall motion. Mildly dilated left atrium with Grade 1 LV diastolic dysfunction and elevated estimated mean atrial pressure. Normal right heart chamber size and motion with Doppler evidence of at least mild pulmonary hypertension. IVC size upper limits of normal with adequate respiratory collapse in keeping with central venous pressure, upper limits of normal. Normal aortic dimensions. Subtle aortic valvular sclerosis without functional abnormality. Mild mitral annular thickening but normal leaflet thickness and excursion with no posterior systolic buckling. No functional abnormality. Normal appearing tricuspid valve with trace insufficiency. No apparent intracardiac mass. There was a circumferential echo clear space suggestive of at least a small pericardial effusion but there was no sign of cardiac chamber compression. Doppler flow signals across her valvular structures did not show any respiratory variation DVT prophylaxis ordered?: heparin ASSESSMENT AND PLAN: is a 75 yr old w a hx of Chronic back pain / Spinal stenosis, Osteoporosis L4 compression fx, PVD, CKD 3, Severe COPD 2/2 tobacco abuse, PVD, DLP, IDDM, Hypothyroidism, HTN, HFpEF, & Anxiety/depression who is admitted for management of dyspnea, acute COPD & SU; while in the ER she had an episode of syncope. Transfered to ICU for management of HHS. PROBLEMS: 1 Dyspnea 2/2 Acute COPD - c/w long active inhalers, prednisone - on 2L NC. - CXR shows infiltrates, but I suspect leukocytosis 2/2 steroid use - no fever, no cough - monitor clinically, if develops fever, start abx - will check procal 2 Uncontrolled IDDM with hyperglycemia and neuropathy; in HHS - patient had recently been on course of prednisone for COPD exacerbation - on arrival to ER BG > 700. Had negative ketones - was not started on insulin ggt - osmolality 303 - LA 5.3 - BG persistently > 550, on steroids, despite ISS, levemir 20 and 10 untis regu lar insulin - transfer to ICU for insulin ggt - BMP q4h. Start NS at 175 cc/hr - once BG< 300 will started on d5 1/2 NS - CC diet - will transition to levemir once BG better controlled. 3 SU on CKD3 - pending renal US - patient is dehydrated, given elevation in LA 5.3 in setting of HHS - ordered 2L NS 0.9% as part of HHS treatment - repeating BMP q4h 4 Syncope - orthostats negative - echo from 09/08/20 reviewed as above - placed on tele x 48 hours - obtain carotid US 5 Leukocytosis - likely from recent steroid use - possible infection given HHS - check UA - CXR showing possible infiltrates - patient recently completed course of levaquin for pna - will monitor clinically for now, hold off on abx given no cough, no fevers. 6 Macrocytic Anemia - b12 wnl - possible 2/2 COPD 7 Left hand pain - hand XR shows no fx - acetaminophen # Chronic HFpEF (grade 1) w Pulm HTN (PASP 39) - euvolemic - last echo from 09/08/20 reviewed as above. # Peripheral vascular disease - c/w clopidogrel & atorvastatin /smoking cessation education #Hypothyroidism - c/w levothyroxine #Essential HTN - amlodipine & hydralazine; Lisinopril on hold #Chronic back pain / Spinal stenosis - c/w acetaminophen # Anxiety/depression - c/w duloxetine & hydroxyzine DVT: heparin SC VS, I&O, 24H, Fishbone Vital Signs/I&O Vital Signs Date Time Temp Pulse Resp B/P (MAP) Pulse Ox O2 Delivery O2 Flow Rate FiO2 10/02/20 12:00 97.0 83 15 127/58 (81) 100 Nasal Cannula 2.0 I&O- Last 24 Hours up to 6 AM 10/02/20 06:00 Intake Total 2100 ml Balance 2100 ml Laboratory Data 24H LABS Laboratory Tests 2 10/01/20 20:07: Coronavirus (COVID-19)(PCR) NEGATIVE, Influenza Type A (RT-PCR) NEGATIVE, Influenza Type B (RT-PCR) NEGATIVE, Respiratory Syncytial Virus (PCR) NEGATIVE 10/01/20 20:08: Immature Granulocyte % (Auto) 1.6, Neutrophils (%) (Auto) 86.0H, Lymphocytes (%) (Auto) 6.7L, Monocytes (%) (Auto) 4.7, Eosinophils (%) (Auto) 0.7, Basophils (%) (Auto) 0.3, Neutrophils # (Auto) 12.7H, Lymphocytes # (Auto) 1.0L, Monocytes # (Auto) 0.7, Eosinophils # (Auto) 0.1, Basophils # (Auto) 0.1, Nucleated Red Blood Cells % (auto) 0.0, Anion Gap 8, Glomerular Filtration Rate 34.7L, Osmolality 319H, Calcium Level 7.2L, Magnesium Level 1.4L, Total Bilirubin 0.2, Direct Bilirubin < 0.1, Aspartate Amino Transf (AST/SGOT) 26, Alanine Aminotransferase (ALT/SGPT) 34, Alkaline Phosphatase 102, Total Creatine Kinase 41, Creatine Kinase MB 2.3, Creatine Kinase MB Relative Index 5.61H, Troponin I 0.04, Total Protein 4.7L, Albumin 2.1L, Albumin/Globulin Ratio 0.8L, B- Hydroxybutyrate 1.34 10/01/20 23:43: Bedside Glucose (Misc Panel) 304H 10/02/20 00:51: Bedside Glucose (Misc Panel) 239H 10/02/20 01:27: Blood Gas Bicarbonate Standard 25.5, Venous Blood pH 7.387, Venous Blood Partial Pressure CO2 45.0, Venous Blood Partial Pressure O2 99.1H, Venous Blood Total Carbon Dioxide 27.8, Venous Blood HCO3 26.4, Venous Blood Oxygen Saturation 96.6H, Venous Blood Base Excess 1.2, Total Creatine Kinase 48 10/02/20 05:13: Nucleated Red Blood Cells % (auto) 0.0, Anion Gap 7L, Glomerular Filtration Rate 52.1, Calcium Level 8.2L, Magnesium Level 1.9, Vitamin B12 Level 448 10/02/20 07:47: Bedside Glucose (Misc Panel) 487H 10/02/20 09:16: Bedside Glucose (Misc Panel) 492H 10/02/20 10:03: Bedside Glucose Confirm (Misc) 559*H, B-Hydroxybutyrate 1.98 10/02/20 10:38: Bedside Glucose (Misc Panel) 511*H 10/02/20 12:15: Blood Gas Bicarbonate Standard 21.2L, Arterial Blood pH 7.383, Arterial Blood Partial Pressure CO2 35.3, Arterial Blood Partial Pressure O2 127.4H, Arterial Blood Total CO2 21.6L, Arterial Blood HCO3 20.6L, Arterial Blood Base Excess - 3.9L, Arterial Blood Oxygen Saturation 98.1 10/02/20 12:33: Anion Gap 10, Glomerular Filtration Rate 41.4, Osmolality 303H, Lactic Acid Level 5.3*H, Calcium Level 8.8, Phosphorus Level 2.8, Magnesium Level 1.9, Total Bilirubin 0.2, Aspartate Amino Transf (AST/SGOT) 19, Alanine Aminotransferase (ALT/SGPT) 37, Alkaline Phosphatase 106, Total Protein 6.1#L, Albumin 2.5L, Albumin/Globulin Ratio 0.7L 10/02/20 13:28: Bedside Glucose (Misc Panel) 334H CBC/BMP Laboratory Tests 10/01/20 20:08 10/02/20 05:13 10/02/20 12:33 MAGGIE FINK MD Oct 02, 2020 14:24
[2020-10-02] MEDS: INSULIN IV RATE CHANGE DOCUMENTATION ML/HR XX SCH ×3 (14:42→17:43)
[2020-10-02] MEDS ORDERED: **NOTE PATIENT COMMENT** MISC XX ONE (18:00)
[2020-10-02] MEDS ORDERED: D5W/0.45% SODIUM CHLORIDE 1,000 ML IV SCH (18:15)
[2020-10-02] MEDS ORDERED: LEVEMIR (INSULIN DETEMIR) 1 UNITS/0.01ML SC ONE (18:15)
[2020-10-02 18:28] LABS: AMORPHOUS SEDIMENT SMALL (NEGATIVE); APPEARANCE, URINE HAZY (CLEAR); BACTERIA, URINE AUTO NEGATIVE (NEGATIVE); BILIRUBIN, URINE AUTO NEGATIVE (NEGATIVE); BLOOD, URINE BLOOD NEGATIVE (NEGATIVE); COLOR, URINE YELLOW (YELLOW); GLUCOSE, URINE (UA) AUTO 3+ mg/dL (NEGATIVE); KETONE, URINE AUTO NEGATIVE (NEGATIVE); LEUKOCYTE ESTERASE, URINE AUTO NEGATIVE (NEGATIVE); MUCUS, URINE SMALL (NEGATIVE); NITRITE, URINE AUTO NEGATIVE (NEGATIVE); PROTEIN, URINE AUTO 3+ mg/dL (NEGATIVE); RBC, URINE AUTO 1 /HPF (0-3); SPECIFIC GRAVITY URINE AUTO 1.012 (1.002-1.035); SQUAMOUS EPITHELIAL CELL UR AU 2 /HPF (0-6); UROBILINOGEN, URINE AUTO 0.2 mg/dL (0.0-2.0); WBC, URINE AUTO 1 /HPF (0-3)
[2020-10-02 18:42] LABS: POTASSIUM RANDOM URINE 32.7 MEQ/L
[2020-10-02] MEDS: hydrOXYzine 10 MG TAB PO PRN (20:05)
[2020-10-02 20:25] LABS: CALCIUM LEVEL 8.2 MG/DL (8.8-10.2); CREATININE FOR GFR 1.02 MG/DL (0.55-1.30); GLOMERULAR FILTRATION RATE 56.2 (>39); PHOSPHORUS LEVEL 2.7 MG/DL (2.5-4.9); POTASSIUM SERUM 4.5 MEQ/L (3.5-5.1)
--- NOTE | 2020-10-02 21:07 | REPVR ---
PROCEDURE INFORMATION: Exam: US Duplex Bilateral Extracranial Arteries Exam date and time: 10/02/2020 8:48 PM Age: 75 years old Clinical indication: Syncope and collapse TECHNIQUE: Imaging protocol: Real-time Duplex ultrasound scan of the bilateral carotid and vertebral arteries combining altamirano scale, color Doppler and spectral waveform analysis. Bilateral exam. COMPARISON: CT Head without contrast 10/02/2020 12:05 AM FINDINGS: Right side: There is moderate to severe irregular atherosclerotic plaque formation right carotid bifurcation. The right ICA/CCA ratio is 1.3 with a peak velocity of the right internal carotid artery of 82 centimeters/seconds. The amount of narrowing of the right internal carotid artery would be less than 50%. The right vertebral artery is antegrade. Left side: The left ICA/CCA ratio is 1.23 with peak velocity of the left internal carotid artery of 112 cm/s. The amount of narrowing of the left internal carotid artery would be less than 50%. The left vertebral artery is antegrade. IMPRESSION: 1. Moderate to severe atherosclerotic plaque formation right and left carotid bifurcation but greater on the right. 2. The amount of narrowing right and left internal carotid artery less than 50%. REFERENCES: SRU CRITERIA. The degree of internal carotid artery stenosis is based on criteria defined by the Society of Radiologists in Ultrasound (SRU). Normal is no stenosis. Mild is less than 50% stenosis. Moderate is 50-69% stenosis. Severe is greater than 69% stenosis to near occlusion. Near occlusion is a markedly narrowed lumen. Total occlusion is no detectable patent lumen. Electronically signed by: Alexandre Wyatt On 10/02/2020 21:06:46 PM
[2020-10-03] VITALS (7 sets, daily range): BP systolic 129–180; BP diastolic 8–81
[2020-10-03 00:14] LABS: CALCIUM LEVEL 8.2 MG/DL (8.8-10.2); CREATININE FOR GFR 1.15 MG/DL (0.55-1.30); PHOSPHORUS LEVEL 2.6 MG/DL (2.5-4.9); POTASSIUM SERUM 3.9 MEQ/L (3.5-5.1)
[2020-10-03] MEDS: IPRATROPIUM 0.5MG/ALBUTEROL 2.5MG INH SOL UD 3ML (DUONEB) NEB SCH ×3 (02:00→14:00)
[2020-10-03 05:38] LABS: CALCIUM LEVEL 8.1 MG/DL (8.8-10.2); CREATININE FOR GFR 1.05 MG/DL (0.55-1.30); GLOMERULAR FILTRATION RATE 54.4 (>39); PHOSPHORUS LEVEL 2.9 MG/DL (2.5-4.9); POTASSIUM SERUM 3.7 MEQ/L (3.5-5.1)
[2020-10-03] MEDS: LEVOTHYROXINE 75MCG TABLET (0.075MG) PO SCH (06:27)
[2020-10-03] MEDS: HEPARIN SOD (PORCINE) 5000UNITS/ML 1ML VIAL/SYRINGE SQ SCH ×2 (06:27→14:33)
[2020-10-03] MEDS: HumaLOG INSULIN (NovoLOG) PER UNIT SC SCH ×3 (07:30→18:10)
[2020-10-03] MEDS ORDERED: NICOTINE 21MG/24HR 1 EA TRANSDERMAL TD SCH (09:00)
[2020-10-03 09:06] LABS: ALBUMIN 2.3 GM/DL (3.2-5.2); BILIRUBIN,TOTAL 0.2 MG/DL (0.2-1.0)
[2020-10-03] MEDS: DULoxetine 30 MG CAP (CYMBALTA) PO SCH (09:15)
[2020-10-03] MEDS: **hydrALAZINE** 50 MG TAB PO SCH (09:15)
[2020-10-03] MEDS: CLOPIDOGREL 75 MG TAB PO SCH (09:15)
[2020-10-03] MEDS: PANTOPRAZOLE 40MG VIAL (C9113 PER 1) IV SCH (09:16)
[2020-10-03] MEDS: predniSONE 20 MG TAB PO SCH (09:16)
[2020-10-03 09:31] LABS: BASO % 0.1 % (0.0-1.0); EOS % 0.3 % (0.0-3.0); HEMATOCRIT 27.5 % (36.0-47.0); LYMPH # 1.4 10^3/uL (1.5-5.0); LYMPH % 9.7 % (24.0-44.0); MEAN CORPUSCULAR HEMOGLOBIN 31.6 pg (27.0-33.0); MEAN CORPUSCULAR HGB CONC 32.7 g/dl (32.0-36.5); MEAN CORPUSCULAR VOLUME 96.5 fl (80.0-96.0); MONO # 0.9 10^3/uL (0.0-0.8); MONO % 6.5 % (2.0-8.0); NEUTROPHILS # 11.6 10^3/uL (1.5-8.5); NEUTROPHILS % 81.6 % (36.0-66.0); PLATELET COUNT, AUTOMATED 171 10^3/uL (150-450); RED BLOOD COUNT 2.85 10^6/uL (4.00-5.40); WHITE BLOOD COUNT 14.2 10^3/uL (4.0-10.0)
[2020-10-03] MEDS ORDERED: LevoFLOXacin 500 MG TABLET PO ONE (13:15)
[2020-10-03] MEDS ORDERED: LEVEMIR (INSULIN DETEMIR) 1 UNITS/0.01ML SC SCH ×2 (13:30→18:00)
--- NOTE | 2020-10-03 13:44 | IPNPDOC ---
Text Note Date of Service The patient was seen on 10/03/20. NOTE Subjective: No any acute events overnight. Patient stated that she feels better in the morning, blood glucose level was stabilized. Patient stated that her breathing improved. Patient has intermittent cough Objective: GENERAL APPEARANCE: NAD HEENT: no scleral icterus, no JVD, EOMI CARDIOVASCULAR: S1S2 LUNGS: Coarse lung sounds bilaterally ABDOMEN: soft & not tender w palpation MUSCULOSKELETAL: no cyanosis, no swelling INTEGUMENT: no generalized pallor NEUROLOGICAL: cranial nerve function from 2-12 intact, follows commands, speech not dysarthric Assessment and plan Patient is 75 years old female with past medical history of chronic back pain, spinal stenosis, osteoporosis with L4 compression fracture, peripheral vascular disease, severe COPD, active smoking history, type 2 diabetes presented to the hospital with dyspnea. Dyspnea Secondary to COPD exacerbation Continue inhalers and p.o. prednisone Procalcitonin elevated to 0.34. I will start levofloxacin p.o. Type 2 diabetes Patient received treatment with insulin drip, blood glucose level was stabilized in the morning We will check HbA1c I increased the dose of Levemir to 20 units twice daily Insulin sliding scale, diabetic diet SU Improved Syncope most like vasovagal Work-up negative Leukocytosis Could be secondary to steroid use or respiratory infection due to COPD exacerbation Start levofloxacin p.o. chest XR from 10/02/2020 No acute cardiopulmonary process or interval change Normocytic anemia We will check folate, B12 within normal limit We will check iron panel Left hand pain Imaging study negative for fracture Resolved Diastolic CHF Not in acute exacerbation Peripheral vascular disease Continue clopidogrel and statin Smoking abuse Counseling, nicotine patch Hypothyroidism Continue levothyroxine Hypertension Continue home meds Chronic back pain/spinal stenosis Pain management Anxiety/depression Continue home meds VS,Fishbone, I+O VS, Fishbone, I+O Laboratory Tests 10/02/20 19:44 10/02/20 23:34 10/03/20 04:55 Vital Signs Date Time Temp Pulse Resp B/P (MAP) Pulse Ox O2 Delivery O2 Flow Rate FiO2 10/03/20 12:20 97.2 93 18 157/8 (57) 97 Nasal Cannula 2.0 I&O- Last 24 Hours up to 6 AM 10/03/20 06:00 Intake Total 2160 ml Output Total 1750 ml Balance 410 ml LAVINIA STEWART DO Oct 03, 2020 13:44
[2020-10-03 14:15] LABS: FOLATE 13.2 NG/ML (>5.4)
[2020-10-03 14:45] LABS: HEMOGLOBIN A1c 9.1 %
[2020-10-03] MEDS ORDERED: LevoFLOXacin 750 MG TABLET PO SCH (15:00)
[2020-10-03] MEDS: hydrOXYzine 10 MG TAB PO PRN (16:45)
--- NOTE | 2020-10-03 19:52 | DS.PDOC ---
Discharge Summary General Date of Admission Oct 01, 2020 at 19:45 Date of Discharge 10/03/20 Discharge Summary PROCEDURES PERFORMED DURING STAY: [None]. ADMITTING DIAGNOSES: Dyspnea Type 2 diabetes SU Syncope Leukocytosis Normocytic anemia Left hand pain Diastolic CHF Peripheral vascular disease Smoking abuse Hypothyroidism Hypertension Chronic back pain/spinal stenosis Anxiety/depression DISCHARGE DIAGNOSES: Dyspnea Type 2 diabetes SU Syncope Leukocytosis Normocytic anemia Left hand pain Diastolic CHF Peripheral vascular disease Smoking abuse Hypothyroidism Hypertension Chronic back pain/spinal stenosis Anxiety/depression COMPLICATIONS/CHIEF COMPLAINT: Sob, Uncontroolled Diabetes Mellitus. HISTORY OF PRESENT ILLNESS: Patient is 75 years old female with past medical history of chronic back pain, spinal stenosis, osteoporosis with L4 compression fracture, peripheral vascular disease, severe COPD, active smoking history, type 2 diabetes presented to the hospital with dyspnea. HOSPITAL COURSE: Today patient left facility AGAINST MEDICAL ADVICE DISCHARGE MEDICATIONS: Please see below. ALLERGIES: Please see below. PHYSICAL EXAMINATION ON DISCHARGE: VITAL SIGNS: Please see below. GENERAL: HEENT: NECK: CARDIOVASCULAR EXAMINATION: RESPIRATORY EXAMINATION: ABDOMINAL EXAMINATION: EXTREMITIES: SKIN: NEUROLOGICAL EXAMINATION: PSYCHIATRIC EXAMINATION: LABORATORY DATA: Please see below. IMAGING: PROGNOSIS: ACTIVITY: [As tolerated]. DIET: DISCHARGE PLAN: DISPOSITION: 07 Against Medical Advice. DISCHARGE INSTRUCTIONS: 1. . ITEMS TO FOLLOWUP ON ON OUTPATIENT: 1. . DISCHARGE CONDITION: [Stable]. TIME SPENT ON DISCHARGE: minutes. Vital Signs/I&Os Vital Signs Date Time Temp Pulse Resp B/P (MAP) Pulse Ox O2 Delivery O2 Flow Rate FiO2 10/03/20 13:06 2.0 10/03/20 12:20 97.2 93 18 157/8 (57) 97 Nasal Cannula I&O- Last 24 Hours up to 6 AM 10/03/20 06:00 Intake Total 2160 ml Output Total 1750 ml Balance 410 ml Laboratory Data Labs 24H Laboratory Tests 2 10/02/20 21:34: Bedside Glucose (Misc Panel) 290H 10/02/20 23:26: Bedside Glucose (Misc Panel) 230H 10/02/20 23:34: Anion Gap 7L, Glomerular Filtration Rate 49.0, Lactic Acid Followup at 4 Hours 1.7, Calcium Level 8.2L, Phosphorus Level 2.6 10/03/20 02:10: Bedside Glucose (Misc Panel) 162H 10/03/20 04:55: Immature Granulocyte % (Auto) 1.8, Neutrophils (%) (Auto) 81.6H, Lymphocytes (%) (Auto) 9.7L, Monocytes (%) (Auto) 6.5, Eosinophils (%) (Auto) 0.3, Basophils (%) (Auto) 0.1, Neutrophils # (Auto) 11.6H, Lymphocytes # (Auto) 1.4L, Monocytes # (Auto) 0.9H, Eosinophils # (Auto) 0.0, Basophils # (Auto) 0.0, Nucleated Red Blood Cells % (auto) 0.0, Bedside Glucose (Misc Panel) 108, Anion Gap 6L, Glomerular Filtration Rate 54.4, Estimated Mean Plasma Glucose 214H, Hemoglobin A1c 9.1, Calcium Level 8.1L, Phosphorus Level 2.9, Magnesium Level 2.0, Iron Level 73, Total Iron Binding Capacity 243L, Transferrin % Saturation 30.0, Total Bilirubin 0.2, Aspartate Amino Transf (AST/SGOT) 16, Alanine Aminotransferase (ALT/SGPT) 31, Alkaline Phosphatase 91, Total Protein 5.0L, Albumin 2.3L, Albumin/Globulin Ratio 0.9L, Folate 13.2 10/03/20 07:38: Bedside Glucose (Misc Panel) 95 10/03/20 11:58: Bedside Glucose (Misc Panel) 432H 10/03/20 11:59: Bedside Glucose (Misc Panel) 400H 10/03/20 14:18: Bedside Glucose (Misc Panel) 269H 10/03/20 16:43: Bedside Glucose (Misc Panel) 388H 10/03/20 17:45: Bedside Glucose (Misc Panel) 429H CBC/BMP Laboratory Tests 10/02/20 23:34 10/03/20 04:55 FSBS Laboratory Tests Test 10/02/20 21:34 10/02/20 23:26 10/03/20 02:10 10/03/20 04:55 Range/Units Bedside Glucose (Misc Panel) 290 230 162 108 83-110 MG/DL Test 10/03/20 07:38 10/03/20 11:58 10/03/20 11:59 10/03/20 14:18 Range/Units Bedside Glucose (Misc Panel) 95 432 400 269 83-110 MG/DL Test 10/03/20 16:43 10/03/20 17:45 Range/Units Bedside Glucose (Misc Panel) 388 429 83-110 MG/DL Discharge Medications Scheduled Amlodipine Besylate (Amlodipine Besylate) 10 Mg Tablet, 10 MG PO QPM, (Reported) Atorvastatin Calcium (Atorvastatin Calcium) 40 Mg Tablet, 40 MG PO QHS, (Reported) Clopidogrel Bisulfate (Plavix) 75 Mg Tablet, 75 MG PO DAILY, (Reported) Duloxetine HCl (Duloxetine HCl) 60 Mg Capsule.dr, 60 MG PO DAILY, (Reported) Fluticasone/Vilanterol (Breo Ellipta 200-25 Mcg INH) 1 Each Blst.w.dev, 1 PUFF INH DAILY, (Reported) Gabapentin (Gabapentin) 100 Mg Capsule, 100 MG PO QHS, (Reported) Hydralazine HCl (Hydralazine HCl) 50 Mg Tablet, 50 MG PO BID, (Reported) 0800, 1700 Insulin Detemir (Levemir Flextouch) 100 Unit/1 Ml Insuln.pen, 20 UNIT SC QPM, (Reported) Levothyroxine Sodium (Levothyroxine Sodium) 75 Mcg Tablet, 75 MCG PO DAILY, (Reported) Lisinopril (Lisinopril) 20 Mg Tablet, 20 MG PO BID, (Reported) 0800, 1700 Metformin HCl (Metformin HCl) 500 Mg Tablet, 500 MG PO BID, (Reported) 0800, 1700 Scheduled PRN Albuterol Sulfate (Ventolin Hfa) 18 Gm Hfa.aer.ad, 2 PUFFS INH QID PRN for SHORTNESS OF BREATH, (Reported) Hydroxyzine HCl (Hydroxyzine HCl) 10 Mg Tablet, 10 MG PO Q8H PRN for ANXIETY, (Reported) Miscellaneous Medications [med rec comment] , (Reported) pt unsure of meds and last doses. used external history and last discharge from 09/25/20 Allergies Coded Allergies: Sulfa (Sulfonamide Antibiotics) (Verified Allergy, Mild, RASH, 09/22/20) bacitracin (Verified Allergy, Mild, RASH, 09/22/20) cortisone (Verified Allergy, Mild, RASH, 09/22/20) neomycin (Verified Allergy, Mild, RASH, 09/22/20) polymyxin B (Verified Allergy, Mild, RASH, 09/22/20) red dye (Unverified Allergy, Mild, rash OCCURRED ONCE WITH CAPSULE MED NO OTHER PROBLEMS WIT, 09/22/20) fluoxetine (Unverified Allergy, Unknown, 09/22/20) tramadol (Unverified Allergy, Unknown, 09/22/20) HAS HAD OXYCODONE BEFORE WITHOUT ISSUE LAVINIA STEWART DO Oct 03, 2020 19:52
[2020-10-04] MEDS ORDERED: LevoFLOXacin 250 MG TABLET PO SCH (06:00)
[2020-10-04] MEDS ORDERED: PANTOPRAZOLE 40MG TAB (PROTONIX) PO SCH (09:00)
== END 2020-10-03 18:11 | disposition left against medical advice (07) | DRG 190 ==
LOC: M ED 19:44 → EDBD 19:44 → M ED INP 19:45 → ENRESERV 10-02 03:48 → M PCU 10-02 04:15 → M ICU 10-02 13:10 → M MSPAV 10-03 12:30
PROVIDERS: ADMIT Internal Medicine; ATTEND Internal Medicine
DX: J44.1 Chronic obstructive pulmonary disease with (acute) exacerbation (principal); E11.00 Type 2 diabetes mellitus with hyperosmolarity without nonketotic hyperglycemic-hyperosmolar coma (NKHHC); J96.11 Chronic respiratory failure with hypoxia; I13.0 Hypertensive heart and chronic kidney disease with heart failure and stage 1 through stage 4 chronic kidney disease, or unspecified chronic kidney disease; I50.32 Chronic diastolic (congestive) heart failure; N17.9 Acute kidney failure, unspecified; M80.08XD Age-related osteoporosis with current pathological fracture, vertebra(e), subsequent encounter for fracture with routine healing; E11.51 Type 2 diabetes mellitus with diabetic peripheral angiopathy without gangrene; N18.30 Chronic kidney disease, stage 3 unspecified; E78.5 Hyperlipidemia, unspecified; E11.22 Type 2 diabetes mellitus with diabetic chronic kidney disease; F17.200 Nicotine dependence, unspecified, uncomplicated; E03.9 Hypothyroidism, unspecified; F41.9 Anxiety disorder, unspecified; F32.9 Major depressive disorder, single episode, unspecified; E53.8 Deficiency of other specified B group vitamins; E55.9 Vitamin D deficiency, unspecified; Z99.81 Dependence on supplemental oxygen; Z98.41 Cataract extraction status, right eye; Z98.42 Cataract extraction status, left eye; Z90.2 Acquired absence of lung [part of]; E11.65 Type 2 diabetes mellitus with hyperglycemia; E11.40 Type 2 diabetes mellitus with diabetic neuropathy, unspecified; Z91.14 Patient's other noncompliance with medication regimen; D53.9 Nutritional anemia, unspecified; M79.642 Pain in left hand; Z79.02 Long term (current) use of antithrombotics/antiplatelets; Z79.84 Long term (current) use of oral hypoglycemic drugs; Z79.899 Other long term (current) drug therapy; Z88.2 Allergy status to sulfonamides; Z88.5 Allergy status to narcotic agent; Z88.8 Allergy status to other drugs, medicaments and biological substances; Z91.048 Other nonmedicinal substance allergy status; I27.20 Pulmonary hypertension, unspecified; Z20.822 Contact with and (suspected) exposure to COVID-19

== ENCOUNTER 2020-10-04 15:41 | Observation (INO) | payer MEDICARE ==
[~2020-10-04] VITALS: Ht 157.5 cm; Wt 49.8 kg
[2020-10-04 16:48] LABS: BASO % 0.4 % (0.0-1.0); EOS # 0.1 10^3/uL (0.0-0.5); EOS % 1.1 % (0.0-3.0); HEMATOCRIT 30.2 % (36.0-47.0); HEMOGLOBIN 9.8 g/dl (12.0-15.5); LYMPH # 1.5 10^3/uL (1.5-5.0); MEAN CORPUSCULAR HEMOGLOBIN 31.2 pg (27.0-33.0); MEAN CORPUSCULAR HGB CONC 32.5 g/dl (32.0-36.5); MEAN CORPUSCULAR VOLUME 96.2 fl (80.0-96.0); MONO # 0.8 10^3/uL (0.0-0.8); MONO % 7.6 % (2.0-8.0); NEUTROPHILS % 75.1 % (36.0-66.0); PLATELET COUNT, AUTOMATED 157 10^3/uL (150-450); RED BLOOD COUNT 3.14 10^6/uL (4.00-5.40); WHITE BLOOD COUNT 10.7 10^3/uL (4.0-10.0)
[2020-10-04 17:28] LABS: ALBUMIN 2.3 GM/DL (3.2-5.2); ALT/SGPT 47 U/L (12-78); BILIRUBIN,DIRECT < 0.1 MG/DL (0.0-0.2); BILIRUBIN,TOTAL 0.2 MG/DL (0.2-1.0); BLOOD UREA NITROGEN 30 MG/DL (7-18); CALCIUM LEVEL 8.3 MG/DL (8.8-10.2); CARBON DIOXIDE LEVEL 26 MEQ/L (21-32); CHLORIDE LEVEL 106 MEQ/L (98-107); CK-MB VALUE MASS 3.2 NG/ML (<3.6); CPK CREATINE PHOSPHOKINASE 46 U/L (26-192); CREATININE FOR GFR 1.12 MG/DL (0.55-1.30); FREE T4 0.96 NG/DL (0.76-1.46); GLOMERULAR FILTRATION RATE 50.5 (>39); GLUCOSE, FASTING 257 MG/DL (70-100); MB/CK RELATIVE INDEX 6.96 (< OR =4); NT-PRO BNP 6281 PG/ML (<450); POTASSIUM SERUM 4.4 MEQ/L (3.5-5.1); SODIUM LEVEL 137 MEQ/L (136-145); TOTAL PROTEIN 5.4 GM/DL (6.4-8.2); TROPONIN I 0.05 NG/ML (< 0.10)
[2020-10-04] MEDS ORDERED: ACETAMINOPHEN TAB 650MG DOSE (2X325MG) PO PRN (18:50)
[2020-10-04] MEDS ORDERED: DEXTROSE 50% 50 ML SYRINGE IV PRN (18:50)
[2020-10-04] MEDS ORDERED: GLUCAGON INJ 1MG VIAL SC PRN (18:50)
[2020-10-04] MEDS ORDERED: GLUCOSE 4GM CHEW TABLET PO PRN (18:50)
[2020-10-04] MEDS ORDERED: IPRATROPIUM 0.5MG/ALBUTEROL 2.5MG INH SOL UD 3ML (DUONEB) NEB PRN (19:00)
[2020-10-04] MEDS ORDERED: HOME MED LIST COMPLETE! XX SCH (19:05)
[2020-10-04 19:37] LABS: ABG BASE EXCESS 1.3 (-2.0-2.0); ABG HCO3 24.7 MEQ/L (22.0-26.0); ABG PARTIAL PRESSURE CO2 33.9 mmHg (35.0-45.0); ABG PARTIAL PRESSURE O2 186.8 mmHg (75.0-100.0); ABG STANDARD HCO3 25.6 MEQ/L (22.0-26.0); ABG TOTAL CO2 25.7 MEQ/L (23.0-31.0)
[2020-10-04] MEDS ORDERED: FUROSEMIDE 20MG/2ML VIAL (J1940) IV ONE (20:10)
[2020-10-04] MEDS ORDERED: hydrOXYzine 10 MG TAB PO PRN (20:10)
[2020-10-04] MEDS ORDERED: ALBUTEROL 90 MCG/ACT 8GM HFA INHALER INH PRN (20:10)
--- NOTE | 2020-10-04 20:21 | HPEPDOC ---
General Date of Admission 10/04/20 Date of Service: Oct 04, 2020 Chief Complaint The patient is a 75-year-old female admitted with a reason for visit of SOB Source: Patient Exam Limitations: Other (withdrawn affect) History of Present Illness Lula buckner is a 75 yr old F, was admitted to our facility in August and twice in September for acute COPD. Today, she returns after leaving AMA on 10/03 because she reports she "really wanted to get home". She has a withdrawn affect. She reports since she has been home she has been SOB, requiring 4L NC- although this is an escalation from a history of 2L NC at baseline- pt reports she has been on 4L NC for some time. She reports her BG has "been shitty, up and down" today and felt she should return to ED. She reports she has been peeing and thirsty a lot. Pt denies jacobs, sinus congestion, sore throat, palpitations, chest pain, n/v/d, abdominal pain, weakness, sensory changes or syncope. She endorses productive cough yellow- green, but describes as baseline for her. She does endorse some BLE edema past few days. She reports she has not been on any diuretics in past. She reports she has been taking steroids in hospital, and she did half 1/2 tablet of prednisone at home and home inhalers she took, but without improvement. Wbc 10.2, pcr pend, cxr pend- preliminary read without acute consolidation. BTNP 6281 which is decreased from 8000 on 09/24. Pt 4L NC 96%. Patient will be admitted for further evaluation management of presenting concerns. Home Medications Scheduled Amlodipine Besylate (Amlodipine Besylate) 10 Mg Tablet, 10 MG PO QPM, (Reported) Atorvastatin Calcium (Atorvastatin Calcium) 40 Mg Tablet, 40 MG PO QHS, (Reported) Clopidogrel Bisulfate (Plavix) 75 Mg Tablet, 75 MG PO DAILY, (Reported) Duloxetine HCl (Duloxetine HCl) 60 Mg Capsule.dr, 60 MG PO DAILY, (Reported) Fluticasone/Vilanterol (Breo Ellipta 200-25 Mcg INH) 1 Each Blst.w.dev, 1 PUFF INH DAILY, (Reported) Gabapentin (Gabapentin) 100 Mg Capsule, 100 MG PO QHS, (Reported) Hydralazine HCl (Hydralazine HCl) 50 Mg Tablet, 50 MG PO BID, (Reported) 0800, 1700 Insulin Detemir (Levemir Flextouch) 100 Unit/1 Ml Insuln.pen, 20 UNIT SC QPM, (Reported) Levothyroxine Sodium (Levothyroxine Sodium) 75 Mcg Tablet, 75 MCG PO DAILY, (Reported) Lisinopril (Lisinopril) 20 Mg Tablet, 20 MG PO BID, (Reported) 0800, 1700 Metformin HCl (Metformin HCl) 500 Mg Tablet, 500 MG PO BID, (Reported) 0800, 1700 Scheduled PRN Albuterol Sulfate (Ventolin Hfa) 18 Gm Hfa.aer.ad, 2 PUFFS INH QID PRN for SHORTNESS OF BREATH, (Reported) Hydroxyzine HCl (Hydroxyzine HCl) 10 Mg Tablet, 10 MG PO Q8H PRN for ANXIETY, (Reported) Miscellaneous Medications [med rec comment] , (Reported) pt unsure of meds and last doses. used external history and last discharge from 09/25/20 Allergies Coded Allergies: Sulfa (Sulfonamide Antibiotics) (Verified Allergy, Mild, RASH, 09/22/20) bacitracin (Verified Allergy, Mild, RASH, 09/22/20) cortisone (Verified Allergy, Mild, RASH, 09/22/20) neomycin (Verified Allergy, Mild, RASH, 09/22/20) polymyxin B (Verified Allergy, Mild, RASH, 09/22/20) red dye (Unverified Allergy, Mild, rash OCCURRED ONCE WITH CAPSULE MED NO OTHER PROBLEMS WIT, 09/22/20) fluoxetine (Unverified Allergy, Unknown, 09/22/20) tramadol (Unverified Allergy, Unknown, 09/22/20) HAS HAD OXYCODONE BEFORE WITHOUT ISSUE Past Medical History Medical History Chronic back pain / Spinal stenosis Osteoporosis L4 compression fx PVD with s/p right LE angioplasty with stenting CKD 3 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 2/2 tobacco abuse // chronic hypoxemic respiratory failure ( 2 L NC at night) Dyslipidemia Insulin-dependent diabetes mellitus Hypothyroidism Essential HTN Chronic HFpEF (grade 1) w Pulm HTN (PASP 39) Anxiety/depression Vitamin B12 deficiency Vitamin D deficiency Hysterectomy Resection of lung mass Bilateral cataract surgery Family History Significant Family History: No pertinent family hx Social History * Smoker: current smoker Alcohol: Denies Drugs: denies Recent Travel/Sick Contacts: Denies: Recent travel, Recent sick contacts Psychosocial History: Anxiety, Depression A-FIB/CHADSVASC A-FIB History Current/History of A-Fib/PAF?: No Current PO Anticoag Therapy: No Review of Systems Constitutional: Reports: Fatigue; Denies: Chills, Fever, Night Sweats Eyes: Denies: Pain, Vision change ENT: Denies: Head Aches, Ear Pain, Dysphagia Skin: Denies: Rash, Lesions, Breakdown Pulmonary: Reports: Dyspnea, Cough Cardiovascular: Reports: Edema; Denies: Chest Pain, Palpitations, Orthopnea, Paroxysmal Noc. Dyspnea, Lt Headedness Gastrointestinal: Denies: Nausea, Vomiting, Abdominal Pain, Diarrhea Genitourinary: Denies: Dysuria, Frequency, Incontinence, Retention Hematologic: Denies: Bruising, Bleeding Excessively Musculoskeletal: Denies: Neck Pain, Back Pain, Joint Pain, Muscle Pain, Spasms Neurological: Denies: Weakness, Numbness, Change in speech, Confusion Psych: Reports: Mood Normal; Denies: Depression, Memory Issues Physical Examination General Exam: Positive: Alert, No Acute Distress Eye Exam: Positive: PERRLA, Conjunctiva & lids normal, EOMI; Negative: Sclera icteric ENT Exam: Positive: Atraumatic, Mucous membr. moist/pink, Pharynx Normal Neck Exam: Positive: Supple; Negative: JVD, thyromegaly Chest Exam: Positive: Rales (BLL) Heart Exam: Positive: Rate Normal, Regular Rhythm, Normal S1, Normal S2; Negative: Murmurs, Rubs Telemetry: Positive: No significant arrhythmia Abdomen Exam: Positive: Normal bowel sounds, Soft; Negative: Tenderness, Hepatospenomegaly Extremity Exam: Positive: Edema (1+ pedal edema), Normal pulses; Negative: Clubbing, Cyanosis Skin Exam: Positive: Other skin issue (fragile skin, generalized superficial bruising); Negative: Breakdown, Lesion Neuro Exam: Positive: Normal Gait, Normal Speech, Cranial Nerves 3-12 NL, Reflexes 2+ Psych Exam: Positive: Mental status NL, Mood NL, Oriented x 3 Vital Signs Vital Signs Date Time Temp Pulse Resp B/P (MAP) Pulse Ox O2 Delivery O2 Flow Rate FiO2 10/04/20 17:45 96 10/04/20 16:30 185/88 (120) 10/04/20 15:57 98.4 18 100 Nasal Cannula Laboratory Data Labs 24H Laboratory Tests 2 10/04/20 16:09: Immature Granulocyte % (Auto) 1.8, Neutrophils (%) (Auto) 75.1H, Lymphocytes (%) (Auto) 14.0L, Monocytes (%) (Auto) 7.6, Eosinophils (%) (Auto) 1.1, Basophils (%) (Auto) 0.4, Neutrophils # (Auto) 8.0, Lymphocytes # (Auto) 1.5, Monocytes # (Auto) 0.8, Eosinophils # (Auto) 0.1, Basophils # (Auto) 0.0, Nucleated Red Blood Cells % (auto) 0.0, Anion Gap 5L, Glomerular Filtration Rate 50.5, Calcium Level 8.3L, Total Bilirubin 0.2, Direct Bilirubin < 0.1, Aspartate Amino Transf (AST/SGOT) 41H, Alanine Aminotransferase (ALT/SGPT) 47, Alkaline Phosphatase 10 5, Total Creatine Kinase 46, Creatine Kinase MB 3.2, Creatine Kinase MB Relative Index 6.96H, Troponin I 0.05, LH-Ltw-B-Type Natriuretic Peptide 6281H, Total Protein 5.4L, Albumin 2.3L, Albumin/Globulin Ratio 0.7L, Thyroid Stimulating Hormone (TSH) 8.040H, Free Thyroxine 0.96 CBC/BMP Laboratory Tests 10/04/20 16:09 Assessment/Plan 1. Dyspnea 2/2 Acute COPD in pt with chronic respiratory failure: Pt left [facility] after being admitted for acute COPD on 10/01; she is not fully recovered. PCR neg. Concern for developed pna. - Monitor respiratory status, tele, continuous pulse ox. - DuoNeb Q6H - Prednisone PO - Will continue with empiric coverage given pt have been on levaquin prior to leaving [facility], she verbalizes productive cough and clinical exam findings - Check procalc and pend final CXR read consider de-escalation accordingly - AM labs - Smoking cessation education 2 Uncontrolled IDDM with hyperglycemia and neuropathy: Likely 2/2 non-compliance w meds & recent steroid use during recent hospital admission -BG monitoring ACHS. -ADA diet -SSI and hypoglycemia protocol -Hold oral anti-glycemics and c/w Levemir 20 units QHS -Her PCP may consider out pt Endo referral. c/w gabapetin 3. CKD3: With recent SU at 1.55 on . Improved to baseline today. -Monitor UOP. AM labs. Avoid nephrotoxins as able. 4. Leukocytosis in setting of recent steroid use and tobacco use. WBC dec 14.2 to 10.7. Prelim CXR without overt consolidation. -Plan for monitoring worsening infectious markers given above 5. HFrEF, w Pulm HTN (PASP 39): Consideration for developing exacerbation given reported pedal edema. BTNP decreased from previous. -Will trial lasix. Daily weight, fluid balance monitoring. Consider if additional diuresis needed. 6. Chronic Anemia. Baseline hgb 9-11, today 9.8. Recently found b12 deficiency. -Trend Hgb, check b12. 7. Left hand pain: -Xray 10/01 nonacute. Symptom management/ supportive care 8. Peripheral vascular disease: - C/w clopidogrel & atorvastatin /smoking cessation education 9. Hypothyroidism: -Levothyroxine 10 Essential HTN -Continue home medications 11. Chronic back pain / Spinal stenosis: -C/w Tylenol 12. Anxiety/depression -Monitor pt mood. Continue duloxetine & hydroxyzine 13. Tobacco abuse -Encourage smoking cessation education DVT px w Heparin \\ CODE status: FULL Dispo: home after at least 2 midnights stay Plan / VTE VTE Prophylaxis Ordered?: Yes AMA MARTIN NP Oct 04, 2020 19:02
[2020-10-04] MEDS ORDERED: LEVEMIR (INSULIN DETEMIR) 1 UNITS/0.01ML SC SCH (21:00)
[2020-10-04] MEDS ORDERED: GABAPENTIN 100 MG CAP PO SCH (21:00)
[2020-10-04] MEDS ORDERED: ATORVASTATIN 20 MG TAB PO SCH (21:00)
[2020-10-04] MEDS ORDERED: HumaLOG INSULIN (NovoLOG) PER UNIT SC SCH (21:00)
[2020-10-04 21:50] LABS: RSV AMPLIFICATION NEGATIVE (NEGATIVE)
[2020-10-05] MEDS ORDERED: LevoFLOXacin IV 750 MG in IV 1 EA IV SCH ×2
[2020-10-05 00:38] VITALS: BP 141/67
[2020-10-05 01:20] VITALS: O2SAT 99
[2020-10-05] MEDS: IPRATROPIUM 0.5MG/ALBUTEROL 2.5MG INH SOL UD 3ML (DUONEB) NEB SCH ×4 (02:00→13:27)
[2020-10-05 02:10] VITALS: O2SAT 97
[2020-10-05] MEDS: HEPARIN SOD (PORCINE) 5000UNITS/ML 1ML VIAL/SYRINGE SC SCH ×2 (05:27→13:54)
[2020-10-05 05:56] VITALS: BP 142/69
[2020-10-05] MEDS ORDERED: LEVOTHYROXINE 75MCG TABLET (0.075MG) PO SCH (06:00)
[2020-10-05 06:27] LABS: BASO % 0.4 % (0.0-1.0); EOS # 0.2 10^3/uL (0.0-0.5); EOS % 1.4 % (0.0-3.0); HEMATOCRIT 30.3 % (36.0-47.0); HEMOGLOBIN 9.8 g/dl (12.0-15.5); LYMPH # 1.6 10^3/uL (1.5-5.0); LYMPH % 15.6 % (24.0-44.0); MEAN CORPUSCULAR HEMOGLOBIN 31.6 pg (27.0-33.0); MEAN CORPUSCULAR HGB CONC 32.3 g/dl (32.0-36.5); MEAN CORPUSCULAR VOLUME 97.7 fl (80.0-96.0); MONO % 9.7 % (2.0-8.0); NEUTROPHILS # 7.4 10^3/uL (1.5-8.5); NEUTROPHILS % 71.4 % (36.0-66.0); PLATELET COUNT, AUTOMATED 162 10^3/uL (150-450); WHITE BLOOD COUNT 10.4 10^3/uL (4.0-10.0)
[2020-10-05 06:54] LABS: BLOOD UREA NITROGEN 28 MG/DL (7-18); CALCIUM LEVEL 8.2 MG/DL (8.8-10.2); CARBON DIOXIDE LEVEL 30 MEQ/L (21-32); CHLORIDE LEVEL 110 MEQ/L (98-107); GLOMERULAR FILTRATION RATE > 60.0 (>39); GLUCOSE, FASTING 35 MG/DL (70-100); POTASSIUM SERUM 3.6 MEQ/L (3.5-5.1); SODIUM LEVEL 143 MEQ/L (136-145)
[2020-10-05] MEDS: HumaLOG INSULIN (NovoLOG) PER UNIT SC SCH ×2 (07:30→12:00)
[2020-10-05] MEDS ORDERED: **hydrALAZINE** 50 MG TAB PO SCH (08:00)
[2020-10-05 09:00] VITALS: O2SAT 95
[2020-10-05] MEDS ORDERED: NICOTINE 21MG/24HR 1 EA TRANSDERMAL TD SCH (09:00)
[2020-10-05] MEDS ORDERED: DULoxetine 30 MG CAP (CYMBALTA) PO SCH (09:00)
[2020-10-05] MEDS ORDERED: predniSONE 5 MG TAB PO SCH (09:00)
[2020-10-05] MEDS ORDERED: LACTOBACILLUS ACIDOPHILUS CAP (BACID) PO SCH (09:00)
[2020-10-05] MEDS ORDERED: CLOPIDOGREL 75 MG TAB PO SCH (09:00)
[2020-10-05 10:23] VITALS: BP 174/66
--- NOTE | 2020-10-05 13:12 | CR.PDOC ---
General Date of Consultation: Oct 05, 2020 Referring Provider: AMITA WILHELM MD Attending Physician: Ga Lux MD Consultation REASON FOR CONSULTATION/CHIEF COMPLAINT: 75 year old female known to me from [facility] ( not seen since February 2020; no showed appointments or cancelled. She has had repeated admissions for dyspnea/COPD exacerbation. She was recently left AMA 10/03 and returned to the facility 10/04 with dyspnea. She is a full code. Contacted by tool and production planner regarding her repeated admissions. HISTORY OF PRESENT ILLNESS: As above ALLERGIES: Please see below. HOME MEDICATIONS: Please see below. PAST MEDICAL HISTORY: 1.COPD. 2. spinal stenosis 3. CKD stage 3 4. respiratory failure O@ 2L nc at night 5. hx bladder cancer 6. PVD s/p right LE angioplassty and stent 7. type 2 DM 8. hypothyroidism 9. HTN 10. pulmonary HTN 11. anxiety/depression 12. B12 def. 13. vitamin D def. 14. hystertectomy 15. resection lung mass 16. bilateral cataract surgery SOCIAL HISTORY: Marital status and/or living arrangements: , lives alone Children: [1 adult son Employment:retired Tobacco use: constant and uninterested in quitting ETOH: none Illicit drug use:none REVIEW OF SYSTEMS: CONSTITUTIONAL: denies fevers, +fatigue HEENT: denies oral sores, dysphagia CARDIOVASCULAR: history of CHF, some ankle edema, denies chest pain RESPIRATORY: dyspnea, dry cough, O2 in place GENITOURINARY: denies irritative symptoms, hematuria. MUSCULOSKELETAL: back and coccyx pain GASTROINTESTINAL: denies n/v/c/d SKIN: +bruising NEUROLOGICAL: +weakness, usues walker to ambulate PSYCHIATRIC: history of depression, admits to anxiety. ENDOCRINE: denies hyper/hypoglycemic events PHYSICAL EXAMINATION: VITAL SIGNS: Please see below. GENERAL APPEARANCE: Resting on side in bed with O2 in place, alert, oriented but forgot she recently left the hospital until I reminded her HEENT: no oral lesions, membrances moist RESPIRATORY: bilateral rales, decreased breath sounds bilateral bases CARDIOVASCULAR: RRR ABDOMEN: +BS, no guarding or rebound. EXTREMITIES: 1+ edema bilatearl LE, pulses palpable NEUROLOGICAL: no focal deficits PSYCHIATRIC: appears euthymic, speech rate and volume normal, answers questions appropriately except about previously leaving hospital on Friday. LABORATORY DATA: Please see below. ASSESSMENT/PLAN: 1. COPD/respiratory failure 2. CHF 3. Anxiety I discussed with Lula the importance of controlling anxiety. I previously ordered lorazepam for sleep and anxiety for her however she has not followed up in my clinic nor has she called for refills so likely has been out of this for months. I also discussed low dose morphine concentrate to help manage her dyspnea. My concern is she is well known to have compliance issues and lives alone. However, if a plan can be developed with her son Johann, then perhaps this may be an option outpatient. I spent 20 minutes discussing advanced directives with her. I frqankly told her if she had chest compressions she would likely suffer mu.tiple rib fractures and if she went on a ventilator, she would likely never come off until . SHe stated she really did not want to talk about advance directives at the outset of the conversation, and she has always avoided this subject on the two occasions she did come to my clinic. I told her none of us has any control over when we might pass away, but we do have control over how aggressive care is prior to our passing; however, this must be clearly documented for medical providers to give them some guidance. I asked Lula where she wants to be and she stated she wanted to be at home. I then suggested to her if her projected life expectancy is 6 months or less, she could consider hospice as an option, her symptoms could be managed at home via hospice howeveer she would have to have advance directives and someone available at all times to assist with her care and for safety purposes. She was noncomittal about this option but did l julissa the idea of being home. She then asked me when she was being discharged as she wants to be at home now "and I dont want to leave AMA". I can arrange a follow up appointment for her through her son who is her transportation, however, whether she will keep it or not remains to be seen. Time in 1230 Time out 1315 Vital Signs/I&O Vital Signs Date Time Temp Pulse Resp B/P (MAP) Pulse Ox O2 Delivery O2 Flow Rate FiO2 10/05/20 10:23 174/66 10/05/20 05:56 97.6 79 18 96 Nasal Cannula 2.0 I&O- Last 24 Hours up to 6 AM 10/05/20 06:00 Intake Total 150 ml Output Total 200 ml Balance -50 ml Laboratory Data Labs 24H Laboratory Tests 2 10/04/20 16:09: Immature Granulocyte % (Auto) 1.8, Neutrophils (%) (Auto) 75.1H, Lymphocytes (%) (Auto) 14.0L, Monocytes (%) (Auto) 7.6, Eosinophils (%) (Auto) 1.1, Basophils (%) (Auto) 0.4, Neutrophils # (Auto) 8.0, Lymphocytes # (Auto) 1.5, Monocytes # (Auto) 0.8, Eosinophils # (Auto) 0.1, Basophils # (Auto) 0.0, Nucleated Red Blood Cells % (auto) 0.0, Anion Gap 5L, Glomerular Filtration Rate 50.5, Calcium Level 8.3L, Total Bilirubin 0.2, Direct Bilirubin < 0.1, Aspartate Amino Transf (AST/SGOT) 41H, Alanine Aminotransferase (ALT/SGPT) 47, Alkaline Phosphatase 105, Total Creatine Kinase 46, Creatine Kinase MB 3.2, Creatine Kinase MB Relative Index 6.96H, Troponin I 0.05, ZK-Wpd-X-Type Natriuretic Peptide 6281H, Total Protein 5.4L, Albumin 2.3L, Albumin/Globulin Ratio 0.7L, Thyroid Stimulating Hormone (TSH) 8.040H, Free Thyroxine 0.96 10/04/20 16:17: Procalcitonin 0.11 10/04/20 16:48: Influenza A Immunofluorescence NEGATIVE, Influenza B Immunofluorescence NEGATIVE 10/04/20 19:29: Blood Gas Bicarbonate Standard 25.6, Arterial Blood pH 7.480H, Arterial Blood Partial Pressure CO2 33.9L, Arterial Blood Partial Pressure O2 186.8H, Arterial Blood Total CO2 25.7, Arterial Blood HCO3 24.7, Arterial Blood Base Excess 1.3, Arterial Blood Oxygen Saturation 99.0 10/04/20 19:47: Coronavirus (COVID-19)(PCR) NEGATIVE, Influenza Type A (RT-PCR) NEGATIVE, Influenza Type B (RT-PCR) NEGATIVE, Respiratory Syncytial Virus (PCR) NEGATIVE 10/04/20 22:05: Bedside Glucose (Misc Panel) 316H 10/05/20 01:23: Bedside Glucose (Misc Panel) 119H 10/05/20 06:05: Immature Granulocyte % (Auto) 1.5, Neutrophils (%) (Auto) 71.4H, Lymphocytes (%) (Auto) 15.6L, Monocytes (%) (Auto) 9.7H, Eosinophils (%) (Auto) 1.4, Basophils (%) (Auto) 0.4, Neutrophils # (Auto) 7.4, Lymphocytes # (Auto) 1.6, Monocytes # (Auto) 1.0H, Eosinophils # (Auto) 0.2, Basophils # (Auto) 0.0, Nucleated Red Blood Cells % (auto) 0.0, Anion Gap 3L, Glomerular Filtration Rate > 60.0, Calcium Level 8.2L, Vitamin B12 Level 389 10/05/20 07:24: Bedside Glucose (Misc Panel) 134H 10/05/20 07:51: Bedside Glucose (Misc Panel) 150H 10/05/20 11:26: Bedside Glucose (Misc Panel) 111H CBC/BMP Laboratory Tests 10/04/20 16:09 10/05/20 06:05 Allergies Coded Allergies: Sulfa (Sulfonamide Antibiotics) (Verified Allergy, Mild, RASH, 09/22/20) bacitracin (Verified Allergy, Mild, RASH, 09/22/20) cortisone (Verified Allergy, Mild, RASH, 09/22/20) neomycin (Verified Allergy, Mild, RASH, 09/22/20) polymyxin B (Verified Allergy, Mild, RASH, 09/22/20) red dye (Unverified Allergy, Mild, rash OCCURRED ONCE WITH CAPSULE MED NO OTHER PROBLEMS WIT, 09/22/20) fluoxetine (Unverified Allergy, Unknown, 09/22/20) tramadol (Unverified Allergy, Unknown, 09/22/20) HAS HAD OXYCODONE BEFORE WITHOUT ISSUE Home Medications Scheduled Amlodipine Besylate (Amlodipine Besylate) 10 Mg Tablet, 10 MG PO QPM, (Reported) Atorvastatin Calcium (Atorvastatin Calcium) 40 Mg Tablet, 40 MG PO QHS, ( Reported) Clopidogrel Bisulfate (Plavix) 75 Mg Tablet, 75 MG PO DAILY, (Reported) Duloxetine HCl (Duloxetine HCl) 60 Mg Capsule.dr, 60 MG PO DAILY, (Reported) Fluticasone/Vilanterol (Breo Ellipta 200-25 Mcg INH) 1 Each Blst.w.dev, 1 PUFF INH DAILY, (Reported) Gabapentin (Gabapentin) 100 Mg Capsule, 100 MG PO QHS, (Reported) Hydralazine HCl (Hydralazine HCl) 50 Mg Tablet, 50 MG PO BID, (Reported) 0800, 1700 Insulin Detemir (Levemir Flextouch) 100 Unit/1 Ml Insuln.pen, 20 UNIT SC QPM, (Reported) Levothyroxine Sodium (Levothyroxine Sodium) 75 Mcg Tablet, 75 MCG PO DAILY, (Reported) Lisinopril (Lisinopril) 20 Mg Tablet, 20 MG PO BID, (Reported) 0800, 1700 Metformin HCl (Metformin HCl) 500 Mg Tablet, 500 MG PO BID, (Reported) 0800, 1700 Scheduled PRN Albuterol Sulfate (Ventolin Hfa) 18 Gm Hfa.aer.ad, 2 PUFFS INH QID PRN for SHORTNESS OF BREATH, (Reported) Hydroxyzine HCl (Hydroxyzine HCl) 10 Mg Tablet, 10 MG PO Q8H PRN for ANXIETY, (Reported) Miscellaneous Medications [med rec comment] , (Reported) pt unsure of meds and last doses. used external history and last discharge from 09/25/20 Sudha REAVES REPEATER CHIEF Oct 05, 2020 13:12
--- NOTE | 2020-10-05 13:30 | IPN ---
PROGRESS NOTE DATE: 10/05/2020 SUBJECTIVE: Lula [facility]. She has had nine hospitalizations over seven weeks, often culminating in her leaving against medical advice, just went home on 10/03 and then got readmitted the next day for her COPD that she had been admitted for previously. She is currently lying in bed, and "doesn't feel like talking." She is asking for a nicotine patch. OBJECTIVE: VITAL SIGNS: Her vital signs are stable, afebrile. O2 sat 96% on 2 liters. LUNGS: Diffuse rhonchi and wheezes. Moves air actually pretty well. HEART: Regular rhythm. ABDOMEN: Soft, nontender. EXTREMITIES: No peripheral edema. LABORATORY DATA: CBC: White count 10.4, hemoglobin 9.8, platelets 162,000, sodium 143, potassium 3.6, BUN 28, creatinine 0.9, glucose was 35 this morning, it came up with appropriate treatment. IMPRESSION: 1. Exacerbation of COPD. She is on p.o. Prednisone, Levaquin 750 mg q. 48 hours, nebulized bronchodilator. 2. Hypertension, blood pressure is well-controlled on current regimen. 3. Severe COPD, palliative care consult has been ordered. 4. History of depression. She is on Duloxetine 60 mg daily. 5. Diabetes, will reduce the dose of her Levemir insulin in the face of the hypoglycemic episode this morning. 6. Hypothyroidism, continue levothyroxine 75 mcg daily. 7. Tobacco abuse, smoking cessation discussed, nicotine 21 mg per day patch ordered. Her prognosis is poor. She has endstage COPD and her treatment is complicated by noncompliance and tendency to leave against medical advice. This habit will probably also contribute to shortening length of life and contribute to decreased quality of life and this was discussed with her.
--- NOTE | 2020-10-05 18:48 | ECGEPIP ---
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
[2020-10-05] MEDS ORDERED: LEVEMIR (INSULIN DETEMIR) 1 UNITS/0.01ML SC SCH (21:00)
--- NOTE | 2020-10-06 10:59 | DSES ---
DISCHARGE SUMMARY DATE OF ADMISSION: 10/04/2020 DATE OF DISCHARGE: 10/05/2020 (against medical advice) GRADUATE TEACHING ASSOCIATE: BINA Thompson, Palliative Care PRINCIPAL DIAGNOSIS: Exacerbation of end stage chronic obstructive pulmonary disease. SECONDARY DIAGNOSES: 1. Noncompliance, repeatedly leaves against medical advice. 2. Hypertension. 3. Heart disease. 4. End stage chronic obstructive pulmonary disease. 5. Depression. 6. Diabetes with hypoglycemia. 7. Hypothyroidism. 8. Ongoing tobacco abuse. HISTORY: Patient admitted with exacerbation of COPD. She has had nine hospitalizations in seven weeks often culminating in her leaving against medical advice. She was seen on 10/05. I asked Palliative Care to see her. She was seen and is open for review. The patient was expected to remain in the hospital for a few more days but she signed out AMA yesterday. I found that out this morning on rounds. I anticipate readmission fairly soon. Her COPD is end stage and her compliance is poor. She would be anticipated to restart the medication she was taking prior to admission. Her labs and pertinent medical record will not be repeated here.
--- NOTE | 2020-10-07 16:06 | REP ---
INDICATION: SOB COMPARISON: Multiple prior examinations TECHNIQUE: PA and lateral. FINDINGS: The mediastinum and cardiac silhouette are stable and grossly within normal limits. The lung ferrell demonstrate chronic changes similar to prior examinations although subtle superimposed acute process cannot be excluded. Acute focal consolidation or obvious effusion. No discrete. IMPRESSION: Chronic changes similar to prior examination. Subtle superimposed process cannot be excluded. <Electronically signed by Danis Grenefield > 10/04/20 [id number]
== END 2020-10-05 17:14 | disposition left against medical advice (07) ==
LOC: M ED 15:41 → EDBD 15:41 → M ED INP 18:49 → M MSPAV 10-05 00:38
PROVIDERS: ADMIT Family Medicine; ATTEND Family Medicine
DX: J44.1 Chronic obstructive pulmonary disease with (acute) exacerbation (principal); J96.10 Chronic respiratory failure, unspecified whether with hypoxia or hypercapnia; Z91.19 Patient's noncompliance with other medical treatment and regimen; I13.0 Hypertensive heart and chronic kidney disease with heart failure and stage 1 through stage 4 chronic kidney disease, or unspecified chronic kidney disease; F32.9 Major depressive disorder, single episode, unspecified; E11.65 Type 2 diabetes mellitus with hyperglycemia; E11.40 Type 2 diabetes mellitus with diabetic neuropathy, unspecified; N18.30 Chronic kidney disease, stage 3 unspecified; E11.22 Type 2 diabetes mellitus with diabetic chronic kidney disease; D72.829 Elevated white blood cell count, unspecified; I50.22 Chronic systolic (congestive) heart failure; I27.20 Pulmonary hypertension, unspecified; D64.9 Anemia, unspecified; E53.8 Deficiency of other specified B group vitamins; E03.9 Hypothyroidism, unspecified; M54.9 Dorsalgia, unspecified; F17.210 Nicotine dependence, cigarettes, uncomplicated; Z99.81 Dependence on supplemental oxygen; I73.9 Peripheral vascular disease, unspecified; Z85.51 Personal history of malignant neoplasm of bladder; Z79.899 Other long term (current) drug therapy; Z79.02 Long term (current) use of antithrombotics/antiplatelets; Z79.4 Long term (current) use of insulin; Z88.2 Allergy status to sulfonamides; Z88.1 Allergy status to other antibiotic agents; Z88.8 Allergy status to other drugs, medicaments and biological substances; Z88.5 Allergy status to narcotic agent; Z91.02 Food additives allergy status
CPT/HCPCS: 36415; 36600; 71046; 80048; 80076; 82550; 82553; 82607; 82803; 83880; 84145; 84439; 84443; 84484; 85025; 87631; 87804; 93005; 93041; 96365; 96372; 96375; 99285; G0378; J1644; J1940; J1956; J7512

== ENCOUNTER 2020-10-07 20:18 | Observation (INO) | payer MEDICARE ==
[~2020-10-07] VITALS: Ht 157.5 cm; Wt 53.2 kg
[2020-10-07] MEDS ORDERED: COMBIVENT RESPIMAT 100-20MCG INHALER 4GM INH SCH (20:30)
[2020-10-07] MEDS ORDERED: methylPREDNISolone 125MG 2ML VIAL IV ONE (20:30)
--- NOTE | 2020-10-07 20:48 | ECGEPIP ---
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
[2020-10-07 20:57] LABS: ABG BASE EXCESS 2.3 (-2.0-2.0); ABG HCO3 25.4 MEQ/L (22.0-26.0); ABG O2 SATURATION 97.8 % (95.0-99.0); ABG PARTIAL PRESSURE CO2 33.5 mmHg (35.0-45.0); ABG PARTIAL PRESSURE O2 100.8 mmHg (75.0-100.0); ABG STANDARD HCO3 26.6 MEQ/L (22.0-26.0); ABG TOTAL CO2 26.4 MEQ/L (23.0-31.0); ABG pH (ARTERIAL) 7.498 UNITS (7.350-7.450)
[2020-10-07] MEDS ORDERED: LEVEMIR (INSULIN DETEMIR) 1 UNITS/0.01ML SC SCH (21:00)
[2020-10-07 21:22] LABS: BASO # 0.1 10^3/uL (0.0-0.2); BASO % 0.4 % (0.0-1.0); EOS # 0.1 10^3/uL (0.0-0.5); EOS % 0.5 % (0.0-3.0); HEMATOCRIT 27.5 % (36.0-47.0); HEMOGLOBIN 9.1 g/dl (12.0-15.5); LYMPH # 0.8 10^3/uL (1.5-5.0); MEAN CORPUSCULAR HEMOGLOBIN 32.2 pg (27.0-33.0); MEAN CORPUSCULAR HGB CONC 33.1 g/dl (32.0-36.5); MEAN CORPUSCULAR VOLUME 97.2 fl (80.0-96.0); MONO # 0.4 10^3/uL (0.0-0.8); MONO % 3.5 % (2.0-8.0); NEUTROPHILS # 10.5 10^3/uL (1.5-8.5); PLATELET COUNT, AUTOMATED 132 10^3/uL (150-450); RED BLOOD COUNT 2.83 10^6/uL (4.00-5.40); WHITE BLOOD COUNT 11.9 10^3/uL (4.0-10.0)
[2020-10-07 21:55] LABS: ALBUMIN 2.2 GM/DL (3.2-5.2); ALT/SGPT 32 U/L (12-78); BILIRUBIN,DIRECT < 0.1 MG/DL (0.0-0.2); BILIRUBIN,TOTAL 0.3 MG/DL (0.2-1.0); BLOOD UREA NITROGEN 18 MG/DL (7-18); CALCIUM LEVEL 8.1 MG/DL (8.8-10.2); CARBON DIOXIDE LEVEL 26 MEQ/L (21-32); CHLORIDE LEVEL 105 MEQ/L (98-107); CK-MB VALUE MASS 2.8 NG/ML (<3.6); CPK CREATINE PHOSPHOKINASE 42 U/L (26-192); CREATININE FOR GFR 1.08 MG/DL (0.55-1.30); GLOMERULAR FILTRATION RATE 52.7 (>39); GLUCOSE, FASTING 411 MG/DL (70-100); MB/CK RELATIVE INDEX 6.67 (< OR =4); NT-PRO BNP 7528 PG/ML (<450); POTASSIUM SERUM 4.2 MEQ/L (3.5-5.1); SODIUM LEVEL 139 MEQ/L (136-145); TOTAL PROTEIN 4.9 GM/DL (6.4-8.2); TROPONIN I 0.04 NG/ML (< 0.10)
[2020-10-07] MEDS ORDERED: HumuLIN R (REGULAR) INSULIN (NovoLIN R) **100U/ML** PER UNIT IV ONE (22:05)
--- NOTE | 2020-10-07 22:47 | REPVR ---
PROCEDURE INFORMATION: Exam: XR Chest Exam date and time: 10/07/2020 9:16 PM Age: 75 years old Clinical indication: Other: Dyspnea/cough TECHNIQUE: Imaging protocol: XR of the chest. Views: 1 view. COMPARISON: CR Chest, 2 view PA, Lat 10/04/2020 4:09 PM FINDINGS: Lungs: There is irregular density at the right upper thorax which may be infiltrate and scar. There is there is discoid atelectasis at the left lung base and a small left pleural effusion. Heart/Mediastinum: The heart is normal in size. The heart is normal in size. Bones/joints: Unremarkable. Soft tissues: I would recommend obtaining a CT scan of the chest for further evaluation be compared with older CTs. IMPRESSION: 1. Discoid atelectasis and small left pleural effusion. 2. Area of increased density along the right pleural surface and lung at the apex probably scarring. Patient should have a CT scan to be compared with older examinations. Electronically signed by: Alexandre Wyatt On 10/07/2020 22:47:19 PM
[2020-10-07] MEDS ORDERED: IPRATROPIUM 0.5MG/ALBUTEROL 2.5MG INH SOL UD 3ML (DUONEB) NEB ONE (23:05)
[2020-10-07] MEDS ORDERED: GLUCOSE 4GM CHEW TABLET PO PRN (23:10)
[2020-10-07] MEDS ORDERED: ACETAMINOPHEN TAB 650MG DOSE (2X325MG) PO PRN (23:10)
[2020-10-07] MEDS ORDERED: DEXTROSE 50% 50 ML SYRINGE IV PRN (23:10)
[2020-10-07] MEDS ORDERED: IPRATROPIUM 0.5MG/ALBUTEROL 2.5MG INH SOL UD 3ML (DUONEB) NEB PRN (23:10)
[2020-10-07] MEDS ORDERED: GLUCAGON INJ 1MG VIAL SC PRN (23:10)
[2020-10-07] MEDS ORDERED: HOME MED LIST COMPLETE! XX SCH (23:25)
[2020-10-08] VITALS (10 sets, daily range): BP systolic 119–181; BP diastolic 58–83; O2SAT 97–100
--- NOTE | 2020-10-08 00:23 | HPEPDOC ---
General Date of Admission 10/07/20 Date of Service: Oct 07, 2020 Chief Complaint The patient is a 75-year-old female admitted with a reason for visit of SOB. Source: Patient History of Present Illness Lula Ponce is a 75 yr old F, was admitted to our facility over 9 times in 2 months related to COPD and sadly, continues to leave AMA. Most recent admission 10/04-10/06. Palliative saw her at that time and open to review. Today, she returns after leaving AMA on 10/06 with complaints of worsening SOB. She endorses smoking "but not as much as before" in her time at home. She is audibly wheezing on 4L NC, saturating 97%. She endorses productive cough of yellow phlegm and t aking 1/2 tab of prednisone at home. She reports BG has been labile at home still. BG 43 upon arrival to ED today. Pt denies fever/chills, jacobs, sinus congestion, sore throat, palpitations, chest pain, n/v/d, abdominal pain, weakness, sensory changes or syncope. She does endorse some BLE edema past few days, stable from last admission. She does have a withdrawn and frustrated affect which limits some history taking. Wbc 11.9, pcr pend, CXR + discoid atelectasis and small left pleural effusion with recommendations for CT chest comparison. BTNP 7500 which is an increase from 6281 a few days ago, but decreased from 8000 on 09/24. Patient will be admitted for further evaluation management of presenting concerns. Home Medications Scheduled Amlodipine Besylate (Amlodipine Besylate) 10 Mg Tablet, 10 MG PO QPM, (Reported) Atorvastatin Calcium (Atorvastatin Calcium) 40 Mg Tablet, 40 MG PO QHS, (Reported) Clopidogrel Bisulfate (Plavix) 75 Mg Tablet, 75 MG PO DAILY, (Reported) Duloxetine HCl (Duloxetine HCl) 60 Mg Capsule.dr, 60 MG PO DAILY, (Reported) Fluticasone/Vilanterol (Breo Ellipta 200-25 Mcg INH) 1 Each Blst.w.dev, 1 PUFF INH DAILY, (Reported) Gabapentin (Gabapentin) 100 Mg Capsule, 100 MG PO QHS, (Reported) Hydralazine HCl (Hydralazine HCl) 50 Mg Tablet, 50 MG PO BID, (Reported) 0800, 1700 Insulin Detemir (Levemir Flextouch) 100 Unit/1 Ml Insuln.pen, 20 UNIT SC QPM, (Reported) Levothyroxine Sodium (Levothyroxine Sodium) 75 Mcg Tablet, 75 MCG PO DAILY, (Reported) Lisinopril (Lisinopril) 20 Mg Tablet, 20 MG PO BID, (Reported) 0800, 1700 Metformin HCl (Metformin HCl) 500 Mg Tablet, 500 MG PO BID, (Reported) 0800, 1700 Scheduled PRN Albuterol Sulfate (Ventolin Hfa) 18 Gm Hfa.aer.ad, 2 PUFFS INH QID PRN for SHORTNESS OF BREATH, (Reported) Hydroxyzine HCl (Hydroxyzine HCl) 10 Mg Tablet, 10 MG PO Q8H PRN for ANXIETY, (Reported) Miscellaneous Medications [med rec comment] , (Reported) pt unsure of meds and last doses. used external history and last discharge from 10/05/20 Allergies Coded Allergies: Sulfa (Sulfonamide Antibiotics) (Verified Allergy, Mild, RASH, 10/07/20) bacitracin (Verified Allergy, Mild, RASH, 10/07/20) cortisone (Verified Allergy, Mild, RASH, 10/07/20) neomycin (Verified Allergy, Mild, RASH, 10/07/20) polymyxin B (Verified Allergy, Mild, RASH, 10/07/20) red dye (Unverified Allergy, Mild, rash OCCURRED ONCE WITH CAPSULE MED NO OTHER PROBLEMS WIT, 10/07/20) fluoxetine (Unverified Allergy, Unknown, 10/07/20) tramadol (Unverified Allergy, Unknown, 10/07/20) HAS HAD OXYCODONE BEFORE WITHOUT ISSUE Past Medical History Medical History Chronic back pain / Spinal stenosis Osteoporosis L4 compression fx PVD with s/p right LE angioplasty with stenting CKD 3 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 2/2 tobacco abuse // chronic hypoxemic respiratory failure ( 2 L NC at night) Dyslipidemia Insulin-dependent diabetes mellitus Hypothyroidism Essential HTN Chronic HFpEF (grade 1) w Pulm HTN (PASP 39) Anxiety/depression Vitamin B12 deficiency Vitamin D deficiency Surgical History Hysterectomy Resection of lung mass Bilateral cataract surgery Family History Significant Family History: No pertinent family hx Social History * Smoker: current smoker Alcohol: Denies Drugs: denies Recent Travel/Sick Contacts: Denies: Recent travel, Recent sick contacts Psychosocial History: Depression A-FIB/CHADSVASC A-FIB History Current/History of A-Fib/PAF?: No Current PO Anticoag Therapy: No Review of Systems Constitutional: Denies: Chills, Fever, Night Sweats Eyes: Denies: Pain, Vision change ENT: Denies: Head Aches, Ear Pain, Dysphagia Skin: Denies: Rash, Lesions, Breakdown Pulmonary: Reports: Dyspnea, Cough Cardiovascular: Reports: Edema; Denies: Chest Pain, Palpitations, Orthopnea, Paroxysmal Noc. Dyspnea, Lt Headedness Gastrointestinal: Denies: Nausea, Vomiting, Abdominal Pain, Diarrhea Genitourinary: Denies: Dysuria, Frequency, Incontinence, Retention Hematologic: Denies: Bruising, Bleeding Excessively Musculoskeletal: Denies: Neck Pain, Back Pain, Joint Pain, Muscle Pain, Spasms Neurological: Denies: Weakness, Numbness, Change in speech, Confusion Psych: Reports: Mood Normal; Denies: Depression, Memory Issues Physical Examination General Exam: Positive: Alert, Other (notable audible wheezing, short sentences) Eye Exam: Positive: PERRLA, Conjunctiva & lids normal, EOMI; Negative: Sclera icteric ENT Exam: Positive: Atraumatic, Mucous membr. moist/pink, Pharynx Normal Neck Exam: Positive: Supple; Negative: JVD, thyromegaly Chest Exam: Positive: Rhonchi, Wheezing Heart Exam: Positive: Rate Normal, Regular Rhythm, Normal S1, Normal S2; Negative: Murmurs, Rubs Telemetry: Positive: No significant arrhythmia Abdomen Exam: Positive: Normal bowel sounds, Soft; Negative: Tenderness, Hepatospenomegaly Extremity Exam: Positive: Edema (pedal, 2+), Normal pulses; Negative: Clubbing, Cyanosis Skin Exam: Positive: Nl turgor and temperature; Negative: Breakdown, Lesion Neuro Exam: Positive: Normal Gait, Normal Speech, Cranial Nerves 3-12 NL, Reflexes 2+ Psych Exam: Positive: Mental status NL, Mood NL, Oriented x 3 Vital Signs Vital Signs Date Time Temp Pulse Resp B/P (MAP) Pulse Ox O2 Delivery O2 Flow Rate FiO2 10/07/20 23:27 79 18 10/07/20 21:48 100 Nasal Cannula 4.0 10/07/20 20:42 100 10/07/20 20:34 149/67 (94) 10/07/20 20:32 98.2 Laboratory Data Labs 24H Laboratory Tests 2 10/07/20 20:41: Blood Gas Bicarbonate Standard 26.6H, Arterial Blood pH 7.498H, Arterial Blood Partial Pressure CO2 33.5L, Arterial Blood Partial Pressure O2 100.8H, Arterial Blood Total CO2 26.4, Arterial Blood HCO3 25.4, Arterial Blood Base Excess 2.3H, Arterial Blood Oxygen Saturation 97.8 10/07/20 21:09: Immature Granulocyte % (Auto) 0.6, Neutrophils (%) (Auto) 88.0H, Lymphocytes (%) (Auto) 7.0L, Monocytes (%) (Auto) 3.5, Eosinophils (%) (Auto) 0.5, Basophils (%) (Auto) 0.4, Neutrophils # (Auto) 10.5H, Lymphocytes # (Auto) 0.8L, Monocytes # (Auto) 0.4, Eosinophils # (Auto) 0.1, Basophils # (Auto) 0.1, Nucleated Red Blood Cells % (auto) 0.0, Anion Gap 8, Glomerular Filtration Rate 52.7, Calcium Level 8.1L, Total Bilirubin 0.3, Direct Bilirubin < 0.1, Aspartate Amino Transf (AST/SGOT) 22, Alanine Aminotransferase (ALT/SGPT) 32, Alkaline Phosphatase 108, Total Creatine Kinase 42, Creatine Kinase MB 2.8, Creatine Kinase MB Relative Index 6.67H, Troponin I 0.04, LK-Qur-X-Type Natriuretic Peptide 7528H, Total Pro tein 4.9L, Albumin 2.2L, Albumin/Globulin Ratio 0.8L, Thyroid Stimulating Hormone (TSH) 3.830H CBC/BMP Laboratory Tests 10/07/20 21:09 Microbiology Microbiology 10/07/20 Respiratory Virus Panel (PCR) ([facility]) - Final, Complete Assessment/Plan 1. Acute on chronic COPD: in pt with chronic respiratory failure: - Monitor respiratory status, tele, continuous pulse ox. - DuoNeb Q6H - Start Solu-Medrol 40 mg every 12 hours given labile blood sugars and adjust frequency pending patient response -Empiric coverage levaquin q48h, escalate accordingly. - AM labs - Smoking cessation education -Given the CXR recommendations for a follow-up CT due to right lower lobe, will opt for CT in a.m. It should noticed last CT August 17, 2020 recommended short- term follow-up given right lower lobe nodularity. 2. Left Small pleural effusion in pt with DHFrEF, w Pulm HTN (PASP 39): Noted small left pleural effusion on CXR today, which was not noted on last CXR 10/04. ECHO August 2020 EF 70% with grade 1 diastolic dysfunction -Will trial lasix daily. De-escalate pend pt response. Daily weight, fluid balance monitoring. . 3. Uncontrolled IDDM with hyperglycemia and neuropathy: Complicated due to steroids -BG monitoring ACHS. -ADA diet -SSI and hypoglycemia protocol -Hold oral anti-glycemics and c/w Levemir 20 units QHS -Her PCP may consider out pt Endo referral. c/w gabapetin 4. CKD3: With recent SU at 1.55 on . Improved to baseline Cr 1.08. -Monitor UOP. AM labs. Avoid nephrotoxins as able. 5. Leukocytosis in setting of recent steroid use and tobacco use. WBC mildly increased 11.9, CXR without overt consolidation. -Plan for monitoring worsening infectious markers given above. She will be placed on empiric coverage. Check procalcitonin 6. Chronic Anemia. Baseline hgb 9-11, today 9.1. Recently found b12 deficiency. -Trend Hgb, replete b12 accordingly. 7. Left hand pain: Seemingly resolved. Patient did not complain of pain. -Xray 10/01 nonacute. 8. Peripheral vascular disease: - C/w clopidogrel & atorvastatin. Smoking cessation education 9. Hypothyroidism: -Levothyroxine 10 Essential HTN -Continue home medications 11. Chronic back pain / Spinal stenosis: -C/w Tylenol 12. Anxiety/depression -Monitor pt mood. Continue duloxetine & hydroxyzine 13. Tobacco abuse -Encourage smoking cessation education DVT Px: Heparin SQ CODE status: FULL. Patient did report that she "would only want to be with tube for a short time such as a temporary". Patient may benefit from further palliation discussions in the coming months. Dispo: Anticipate 2 midnights stay Plan / VTE VTE Prophylaxis Ordered?: Yes AMA MARTIN NP Oct 07, 2020 23:39
[2020-10-08] MEDS ORDERED: BENZONATATE 100 MG CAP PO PRN (00:35)
[2020-10-08] MEDS ORDERED: FUROSEMIDE 20MG/2ML VIAL (J1940) IV ONE (01:00)
[2020-10-08] MEDS ORDERED: LevoFLOXacin IV 750 MG in IV 1 EA IV SCH (01:00)
[2020-10-08] MEDS: IPRATROPIUM 0.5MG/ALBUTEROL 2.5MG INH SOL UD 3ML (DUONEB) NEB SCH ×4 (01:46→19:13)
--- NOTE | 2020-10-08 02:42 | REPVR ---
PROCEDURE INFORMATION: Exam: CT Chest Without Contrast; Diagnostic Exam date and time: 10/08/2020 1:05 AM Age: 75 years old Clinical indication: F/u interval from 08/17 recc and cxr recc on 10/07, rll nodular TECHNIQUE: Imaging protocol: Diagnostic computed tomography of the chest without contrast. 3D rendering (Not supervised by radiologist): MIP and/or 3D reconstructed images were created by the technologist. Radiation optimization: All CT scans at this facility use at least one of these dose optimization techniques: automated exposure control; mA and/or kV adjustment per patient size (includes targeted exams where dose is matched to clinical indication); or iterative reconstruction. COMPARISON: 1. CT ANGIO CHEST 09/22/2020 12:23:58 PM (The report from this study was not available for review at the time of this interpretation.) 2. CT Chest without contrast 08/17/2020 3:58 PM (The report from this study was not available for review at the time of this interpretation.) 3. SR CT Chest without contrast 09/17/2016 8:50:[address] Chest with contrast 12/20/2015 9:45:03 AM FINDINGS: Thyroid: The left lobe of the thyroid gland is small. The right lobe of the thyroid gland is heterogeneous in appearance. The thyroid was not fully imaged. Trachea: Normal. Bronchial tree: Patent. Lungs: There is a cluster of nodular opacities in the superior segment of the right lower lobe measuring up to 11 mm, which are stable compared to the CTA chest on 09/22/2020 and 08/17/2020. There is a 12 mm ground-glass opacity in the right middle lobe, which is stable compared to the CTA chest on 09/22/[address] chest on 08/17/2020. No new pulmonary nodules or new areas of consolidation are noted compared to the CTA chest on 09/22/2020. There is atelectasis in both lower lobes. There is chronic pleural and parenchymal scarring in the right upper lobe, which is similar in appearance compared to the CT chest on 08/17/2020. Pleural spaces: There is a trace left pleural effusion that has decreased in size compared to the CTA chest on 09/22/2020. No pneumothorax. Heart: No cardiomegaly. No pericardial effusion. Coronary artery calcifications are present. Mediastinal space: No mediastinal fluid collection or pneumomediastinum is noted. Aorta: The thoracic aorta is intact and patent. There is no thoracic aortic aneurysm, pseudoaneurysm, penetrating atherosclerotic ulcer, intramural hematoma, or dissection. There are extensive atherosclerotic calcifications. Lymph nodes: There are subcentimeter mediastinal lymph nodes. However, no abnormally enlarged lymph nodes measuring greater than 1 cm in short axis are noted. Liver: There are calcified granulomas in the liver. The liver was not fully imaged. Spleen: There are calcified granulomas in the spleen. The spleen was not fully imaged. Kidneys: The right kidney is atrophic. Extensive renal arterial vascular calcifications are present. The kidneys were not fully imaged. Bones/joints: There is a mildly displaced ununited fracture of the right lateral 8th rib, which can also be seen in the CTA chest on 09/22/[address] chest on 08/17/2020. No other fractures are noted. The bones have a demineralized appearance. There are degenerative changes involving the thoracic spine. No suspicious osteolytic or osteoblastic lesion is noted. Soft tissues: Unremarkable. No soft tissue fluid collection. IMPRESSION: 1. Cluster of nodular opacities in the superior segment of the right lower lobe measuring up to 11 mm and a 12 mm ground-glass opacity in the right middle lobe, which are stable compared to the CTA chest on 09/22/2020 and 08/17/2020. For patients at low risk (minimal or absent history of smoking and of other known risk factors), recommend CT Chest at 3-6 months, then consider CT Chest at 18-24 months. For patients at high risk (history of smoking or of other known risk factors), recommend CT Chest at 3-6 months, then CT Chest at 18-24 months. (Reference: Murphy) 2. Trace left pleural effusion that has decreased in size compared to the CTA chest on 09/22/2020. REFERENCES: Murphy H, et al. Guidelines for Management of Incidental Pulmonary Nodules Detected on CT Images: From the Fleischner Society 2017. Radiology. 2017;284(1):228-243. Electronically signed by: Yon Marie On 10/08/2020 02:41:53 AM
[2020-10-08] MEDS ORDERED: HumaLOG INSULIN (NovoLOG) PER UNIT SC ONE (03:40)
[2020-10-08] MEDS ORDERED: POTASSIUM CHLORIDE 10 MEQ SR TABLET PO STA (03:40)
[2020-10-08] MEDS: methylPREDNISolone 40MG 1ML VIAL IV SCH ×2 (05:06→17:32)
[2020-10-08] MEDS: HEPARIN SOD (PORCINE) 5000UNITS/ML 1ML VIAL/SYRINGE SQ SCH ×2 (05:07→14:00)
[2020-10-08 06:04] LABS: BASO % 0.2 % (0.0-1.0); HEMATOCRIT 30.9 % (36.0-47.0); HEMOGLOBIN 9.9 g/dl (12.0-15.5); LYMPH # 0.3 10^3/uL (1.5-5.0); LYMPH % 2.7 % (24.0-44.0); MEAN CORPUSCULAR HEMOGLOBIN 31.6 pg (27.0-33.0); MEAN CORPUSCULAR VOLUME 98.7 fl (80.0-96.0); MONO # 0.1 10^3/uL (0.0-0.8); MONO % 0.6 % (2.0-8.0); NEUTROPHILS # 11.8 10^3/uL (1.5-8.5); NEUTROPHILS % 95.5 % (36.0-66.0); PLATELET COUNT, AUTOMATED 134 10^3/uL (150-450); RED BLOOD COUNT 3.13 10^6/uL (4.00-5.40); WHITE BLOOD COUNT 12.4 10^3/uL (4.0-10.0)
[2020-10-08 06:28] LABS: CALCIUM LEVEL 8.3 MG/DL (8.8-10.2); CREATININE FOR GFR 1.46 MG/DL (0.55-1.30); GLOMERULAR FILTRATION RATE 37.2 (>39); POTASSIUM SERUM 3.9 MEQ/L (3.5-5.1)
[2020-10-08] MEDS: HumaLOG INSULIN (NovoLOG) PER UNIT SC SCH ×3 (06:40→17:33)
[2020-10-08] MEDS ORDERED: FUROSEMIDE 20MG/2ML VIAL (J1940) IV SCH (09:00)
--- NOTE | 2020-10-08 09:03 | IPN ---
PROGRESS NOTE DATE: 10/08/2020 SUBJECTIVE: Lula is back. I think this is the ninth or tenth hospitalization in six weeks. She usually signs out against medical advice and we do not get to really complete much of her treatment before she leaves. She just left a few days ago and came back 24 hours later. She had a CT of the chest that showed a cluster of nodular opacities superior segment right lobe, ground-glass opacity right middle lobe stable compared to previous CTs 09/22/2020 and 08/17/2020, recommend repeat in three to six months. She is a heavy smoker so I certainly advise her outpatient provider to do this. OBJECTIVE: VITAL SIGNS: Afebrile. Vital signs stable. LUNGS: Scattered rhonchi and wheezes. HEART: Regular rate and rhythm. ABDOMEN: Soft and nontender. EXTREMITIES: No peripheral edema. LABORATORY DATA: CBC with white count of 12.4, hemoglobin 9.9, platelets 134,000. Sodium 135, potassium 3.9, BUN 22, creatinine 1.4, glucose 460 this morning. ASSESSMENT/PLAN: 1. Exacerbation of chronic obstructive pulmonary disease (COPD) secondary to presumed bronchitis. She is on IV Solu-Medrol, nebulized bronchodilator, and empiric Levaquin. Smoking cessation was discussed. 2. Abnormal CT scan of the chest. I discussed this with her. She understands the need for a repeat CT scan in three months, which will be December and her outpatient provider needs to order this. 3. Diabetes type 2 now on insulin. She is on Levemir on a sliding scale. 4. Hyperglycemia is made worse by her steroids. 5. Chronic kidney disease. Renal function has declined a bit from yesterday. She is on Levaquin and we need to watch this daily. 6. Noncompliance. The importance of complying with a full course of treatment was discussed.
[2020-10-08] MEDS ORDERED: SLF 3 ML SYR IV PRN (13:30)
[2020-10-08] MEDS ORDERED: SLF 3 ML SYR IV SCH (14:00)
[2020-10-08] MEDS ORDERED: LEVEMIR (INSULIN DETEMIR) 1 UNITS/0.01ML SC SCH (21:00)
[2020-10-08] MEDS ORDERED: HumaLOG INSULIN (NovoLOG) PER UNIT SC SCH (21:00)
--- NOTE | 2020-10-08 22:05 | IPNPDOC ---
Text Note Date of Service The patient was seen on 10/08/20. NOTE Significant event. Patient seen at bedside after reporting to nurse she would like to leave AMA. Patient seen at bedside to discuss risks and consequences of her departing given her dependence on oxygen, no portable oxygen in transit home as well as her acute exacerbation and her repeated recent hospitalizations including her leaving AMA. When asked regarding what is driving her to leave AMA she did disclose some anxiety "I do not want to be here, I want to be at home-nothing here that can be done at home and I really want a cigarette" offered antianxiety medication and nicotine patch to help patient's needs being met, but she reports" those patches do not work " and again verbalized her interest in going home. She reports that she has a nebulizer machine at home including DuoNeb's. Additionally, she does have her home oxygen tank. Gave patient printout of the time schedule of medications- discussed nebulizers every 6 hours, discussed how things that we are doing in hospital including monitoring that she cannot have at home since she lives at home and thus, advised patient to stay inpatient, but patient is of sound mind and able to vocalize consequences of her leaving AMA including . Multiple staff members at bedside including nursing magazine supervisor discussed with patient any other ways to encourage her to stay, but she elected to go via cab. Patient with worsening COPD over the course of 2 months and noncompliant with treatment plan-Nicole Henry leaving AMA and continues to smoke. She has a poor prognosis with high rating of HOSPITAL score and LACE for hospital readmission and increased risk of in 30 days. VS,William, I+O VS, Yevgeniye, I+O Laboratory Tests 10/08/20 05:39 Vital Signs Date Time Temp Pulse Resp B/P (MAP) Pulse Ox O2 Delivery O2 Flow Rate FiO2 10/08/20 19:16 14 10/08/20 15:17 97.6 105 164/77 (106) 97 Room Air 10/08/20 15:15 4.0 10/07/20 20:42 100 I&O- Last 24 Hours up to 6 AM 10/08/20 06:00 Intake Total 750 ml Output Total 800 ml Balance -50 ml AMA MARTIN NP Oct 08, 2020 22:05
--- NOTE | 2020-10-09 10:56 | DSES ---
DISCHARGE SUMMARY DATE OF ADMISSION: 10/07/2020 DATE OF DISCHARGE: 10/08/2020 HISTORY: Apparently Lula signed out AMA again. She was on my list this morning, and looking through the electronic record it appears she signed out against medical advice last night. This will be, I think, the fifth time she has left against medical advice in the last month, twice in the last two days. When she left, she was medically stable. Risks were discussed with her. Diabetes remained out of control upon discharge. Risks of that were discussed as well. DISCHARGE MEDICATIONS: Same as she was taking before admission, and those were dictated yesterday.
== END 2020-10-08 22:10 | disposition left against medical advice (07) ==
LOC: M ED 20:18 → M ED INP 20:19 → ENRESERV 10-08 00:44 → M PCU 10-08 01:40 → M MSPAV 10-08 15:06
PROVIDERS: ADMIT Family Medicine; ATTEND Family Medicine
DX: J44.1 Chronic obstructive pulmonary disease with (acute) exacerbation (principal); R91.8 Other nonspecific abnormal finding of lung field; J96.11 Chronic respiratory failure with hypoxia; E11.65 Type 2 diabetes mellitus with hyperglycemia; N18.30 Chronic kidney disease, stage 3 unspecified; D72.829 Elevated white blood cell count, unspecified; R60.0 Localized edema; D64.9 Anemia, unspecified; M81.0 Age-related osteoporosis without current pathological fracture; M48.00 Spinal stenosis, site unspecified; E11.40 Type 2 diabetes mellitus with diabetic neuropathy, unspecified; I73.9 Peripheral vascular disease, unspecified; E78.5 Hyperlipidemia, unspecified; E03.9 Hypothyroidism, unspecified; I13.0 Hypertensive heart and chronic kidney disease with heart failure and stage 1 through stage 4 chronic kidney disease, or unspecified chronic kidney disease; I50.30 Unspecified diastolic (congestive) heart failure; I27.20 Pulmonary hypertension, unspecified; F41.9 Anxiety disorder, unspecified; F32.9 Major depressive disorder, single episode, unspecified; E53.8 Deficiency of other specified B group vitamins; E55.9 Vitamin D deficiency, unspecified; Z91.19 Patient's noncompliance with other medical treatment and regimen; F17.210 Nicotine dependence, cigarettes, uncomplicated; Z79.899 Other long term (current) drug therapy; Z79.02 Long term (current) use of antithrombotics/antiplatelets; Z79.4 Long term (current) use of insulin; Z88.2 Allergy status to sulfonamides; Z88.1 Allergy status to other antibiotic agents; Z91.02 Food additives allergy status; Z88.8 Allergy status to other drugs, medicaments and biological substances; Z88.5 Allergy status to narcotic agent
CPT/HCPCS: 36415; 36600; 71045; 71250; 80048; 80076; 82550; 82553; 82803; 82947; 83880; 84443; 84484; 85025; 87798; 93005; 93041; 94640; 96365; 96372; 96375; 96376; 99285; G0378; J1644; J1940; J1956; J2920; J2930

== ENCOUNTER 2020-10-11 01:45 | Inpatient (IN) | payer MEDICARE ==
[~2020-10-11] VITALS: Ht 157.5 cm; Wt 52.3 kg
[~2020-10-11 01:45] MED LIST changes: -CEFD1CAP8 PO; +CEFD300C41 PO; +DOXY-443 PO; -DOXY1CAP62 PO; -LISI-898 PO; +LISI5TAB11 PO
[2020-10-11 02:30] LABS: BASO % 0.3 % (0.0-1.0); EOS # 0.1 10^3/uL (0.0-0.5); EOS % 1.1 % (0.0-3.0); HEMATOCRIT 29.6 % (36.0-47.0); HEMOGLOBIN 9.6 g/dl (12.0-15.5); LYMPH # 0.9 10^3/uL (1.5-5.0); LYMPH % 9.3 % (24.0-44.0); MEAN CORPUSCULAR HEMOGLOBIN 31.9 pg (27.0-33.0); MEAN CORPUSCULAR HGB CONC 32.4 g/dl (32.0-36.5); MEAN CORPUSCULAR VOLUME 98.3 fl (80.0-96.0); MONO # 0.7 10^3/uL (0.0-0.8); MONO % 7.1 % (2.0-8.0); NEUTROPHILS # 7.5 10^3/uL (1.5-8.5); NEUTROPHILS % 81.7 % (36.0-66.0); PLATELET COUNT, AUTOMATED 140 10^3/uL (150-450); RED BLOOD COUNT 3.01 10^6/uL (4.00-5.40); VENOUS BASE EXCESS 2.6 (-2.0-2.0); VENOUS HCO3 26.2 MEQ/L (23.0-27.0); VENOUS O2 SATURATION 96.6 % (60.0-80.0); VENOUS PARTIAL PRESSURE CO2 36.4 mmHg (38.0-50.0); VENOUS PARTIAL PRESSURE O2 89.3 mmHg (30.0-50.0); VENOUS PH 7.475 UNITS (7.330-7.430); VENOUS STANDARD HCO3 26.8 MEQ/L; VENOUS TOTAL CO2 27.3 MEQ/L (24.0-28.0); WHITE BLOOD COUNT 9.2 10^3/uL (4.0-10.0)
[2020-10-11 03:23] LABS: RSV AMPLIFICATION NEGATIVE (NEGATIVE)
[2020-10-11 03:25] LABS: ALBUMIN 2.4 GM/DL (3.2-5.2); ALT/SGPT 34 U/L (12-78); BILIRUBIN,DIRECT < 0.1 MG/DL (0.0-0.2); BILIRUBIN,TOTAL 0.3 MG/DL (0.2-1.0); BLOOD UREA NITROGEN 25 MG/DL (7-18); CALCIUM LEVEL 8.1 MG/DL (8.8-10.2); CARBON DIOXIDE LEVEL 28 MEQ/L (21-32); CHLORIDE LEVEL 103 MEQ/L (98-107); CK-MB VALUE MASS 2.8 NG/ML (<3.6); CPK CREATINE PHOSPHOKINASE 45 U/L (26-192); CREATININE FOR GFR 1.16 MG/DL (0.55-1.30); GLOMERULAR FILTRATION RATE 48.5 (>39); GLUCOSE, FASTING 383 MG/DL (70-100); MB/CK RELATIVE INDEX 6.22 (< OR =4); NT-PRO BNP 7140 PG/ML (<450); POTASSIUM SERUM 4.3 MEQ/L (3.5-5.1); SODIUM LEVEL 138 MEQ/L (136-145); TOTAL PROTEIN 5.1 GM/DL (6.4-8.2); TROPONIN I 0.04 NG/ML (< 0.10)
[2020-10-11] MEDS ORDERED: **hydrALAZINE** 50 MG TAB PO SCH (06:00)
[2020-10-11] MEDS ORDERED: LEVOTHYROXINE 75MCG TABLET (0.075MG) PO SCH (06:00)
[2020-10-11] MEDS: COMBIVENT RESPIMAT 100-20MCG INHALER 4GM INH SCH ×3 (06:23→07:27)
[2020-10-11] MEDS ORDERED: methylPREDNISolone 125MG 2ML VIAL IV ONE (06:25)
[2020-10-11] MEDS ORDERED: PATIENT COMMENT (06:52)
[2020-10-11] MEDS ORDERED: HOME MED LIST COMPLETE! XX SCH (06:55)
[2020-10-11] MEDS ORDERED: ALBUTEROL SULFATE 2.5 MG/0.5 ML INH NEB SOLN NEB PRN (07:35)
[2020-10-11] MEDS ORDERED: DEXTROSE 50% 50 ML SYRINGE IV PRN (07:40)
[2020-10-11] MEDS ORDERED: GLUCAGON INJ 1MG VIAL SC PRN (07:40)
[2020-10-11] MEDS ORDERED: GLUCOSE 4GM CHEW TABLET PO PRN (07:40)
[2020-10-11] MEDS ORDERED: hydrOXYzine 10 MG TAB PO PRN (07:40)
[2020-10-11] MEDS: IPRATROPIUM 0.5MG/ALBUTEROL 2.5MG INH SOL UD 3ML (DUONEB) NEB SCH ×3 (08:00→20:01)
[2020-10-11] MEDS: HumaLOG INSULIN (NovoLOG) PER UNIT SC SCH ×3 (08:19→17:38)
[2020-10-11] MEDS ORDERED: NICOTINE 21MG/24HR 1 EA TRANSDERMAL TD SCH (09:00)
[2020-10-11] MEDS ORDERED: CLOPIDOGREL 75 MG TAB PO SCH (09:00)
[2020-10-11] MEDS ORDERED: AZITHROMYCIN 250MG TABLET PO SCH (09:00)
[2020-10-11] MEDS ORDERED: ENOXAPARIN 40MG/0.4ML SYRINGE (J1650 PER 10MG) SC SCH (09:00)
[2020-10-11] MEDS ORDERED: DULoxetine 30MG CAPSULE (CYMBALTA) PO SCH (09:00)
[2020-10-11] MEDS ORDERED: ENALAPRILAT INJ 2.5MG/2ML VIAL IV ONE (09:55)
[2020-10-11] MEDS ORDERED: LABETALOL 100MG/20ML VIAL IV PRN (10:00)
[2020-10-11] MEDS ORDERED: LABETALOL 100MG/20ML VIAL IV ONE (10:00)
[2020-10-11] MEDS ORDERED: **hydrALAZINE HCL** 25 MG TAB PO SCH (14:00)
[2020-10-11] MEDS ORDERED: HumaLOG INSULIN (NovoLOG) PER UNIT SC STA (14:38)
[2020-10-11 14:54] VITALS: BP 188/74
[2020-10-11] MEDS ORDERED: LEVEMIR (INSULIN DETEMIR) 1 UNITS/0.01ML SC ONE (15:00)
[2020-10-11 15:27] VITALS: BP 170/72
[2020-10-11 17:00] VITALS: BP 148/65
[2020-10-11] MEDS ORDERED: GABAPENTIN 100 MG CAP PO SCH (21:00)
[2020-10-11] MEDS ORDERED: HumaLOG INSULIN (NovoLOG) PER UNIT SC SCH (21:00)
[2020-10-11] MEDS ORDERED: ATORVASTATIN 20 MG TAB PO SCH (21:00)
[2020-10-11] MEDS ORDERED: LEVEMIR (INSULIN DETEMIR) 1 UNITS/0.01ML SC SCH (21:00)
[2020-10-12] MEDS ORDERED: methylPREDNISolone 40MG 1ML VIAL IV SCH (19:00)
[2020-10-12] MEDS ORDERED: BREO1INH3 INH (23:22)
[2020-10-12] MEDS ORDERED: HYDR-3911 PO (23:22)
[2020-10-12] MEDS ORDERED: LISI20TA33 PO (23:22)
[2020-10-12] MEDS ORDERED: HYDR-643 PO (23:22)
[2020-10-12] MEDS ORDERED: GABA-1171 PO (23:22)
[2020-10-12] MEDS ORDERED: DULO1CAP6 PO (23:22)
[2020-10-12] MEDS ORDERED: SYNT75TA PO (23:22)
[2020-10-12] MEDS ORDERED: ATOR40TA75 PO (23:22)
[2020-10-12] MEDS ORDERED: PLAV1TAB2 PO (23:22)
[2020-10-12] MEDS ORDERED: PROAAER10 INH (23:22)
[2020-10-12] MEDS ORDERED: INSUDET SC (23:22)
[2020-10-12] MEDS ORDERED: METF-839 PO (23:22)
[2020-10-12] MEDS ORDERED: AMLO1TAB25 PO (23:22)
[2020-10-12] MEDS ORDERED: PATIENT COMMENT (23:23)
[2021-02-12] MEDS ORDERED: CEFD300C41 PO (10:47)
== END 2020-10-11 20:36 | disposition left against medical advice (07) | DRG 190 ==
LOC: M ED 01:45 → M ED INP 07:33 → ENRESERV 08:16 → M PCU 15:14
PROVIDERS: ADMIT Internal Medicine; ATTEND Internal Medicine
DX: J44.1 Chronic obstructive pulmonary disease with (acute) exacerbation (principal); J96.20 Acute and chronic respiratory failure, unspecified whether with hypoxia or hypercapnia; I16.0 Hypertensive urgency; Z91.14 Patient's other noncompliance with medication regimen; E11.51 Type 2 diabetes mellitus with diabetic peripheral angiopathy without gangrene; E03.9 Hypothyroidism, unspecified; M54.5 Low back pain; Z79.899 Other long term (current) drug therapy; Z79.4 Long term (current) use of insulin; Z88.2 Allergy status to sulfonamides; Z88.8 Allergy status to other drugs, medicaments and biological substances; I50.9 Heart failure, unspecified; Z98.41 Cataract extraction status, right eye; Z98.42 Cataract extraction status, left eye; F17.200 Nicotine dependence, unspecified, uncomplicated; F41.9 Anxiety disorder, unspecified; F32.9 Major depressive disorder, single episode, unspecified

== ENCOUNTER 2020-10-12 19:00 | Inpatient (IN) | payer MEDICARE ==
[~2020-10-12] VITALS: Ht 157.5 cm; Wt 57.0 kg
[~2020-10-12 19:00] MED LIST changes: +CEFD1CAP8 PO; -CEFD300C41 PO; -DOXY-443 PO; +DOXY1CAP62 PO; +LISI-898 PO; -LISI5TAB11 PO; +PATIENT COMMENT
[2020-10-12] MEDS ORDERED: NS 1,000 ML IV ONE (19:20)
[2020-10-12 19:54] LABS: VENOUS BASE EXCESS 3.6 (-2.0-2.0); VENOUS O2 SATURATION 97.6 % (60.0-80.0); VENOUS PARTIAL PRESSURE CO2 41.9 mmHg (38.0-50.0); VENOUS PARTIAL PRESSURE O2 112.7 mmHg (30.0-50.0); VENOUS PH 7.443 UNITS (7.330-7.430); VENOUS STANDARD HCO3 27.7 MEQ/L; VENOUS TOTAL CO2 29.3 MEQ/L (24.0-28.0)
[2020-10-12 20:06] LABS: BASO % 0.3 % (0.0-1.0); EOS # 0.2 10^3/uL (0.0-0.5); EOS % 1.4 % (0.0-3.0); HEMOGLOBIN 9.4 g/dl (12.0-15.5); LYMPH % 9.2 % (24.0-44.0); MEAN CORPUSCULAR HEMOGLOBIN 31.8 pg (27.0-33.0); MEAN CORPUSCULAR HGB CONC 32.4 g/dl (32.0-36.5); MONO # 0.7 10^3/uL (0.0-0.8); MONO % 5.9 % (2.0-8.0); NEUTROPHILS # 9.2 10^3/uL (1.5-8.5); NEUTROPHILS % 82.5 % (36.0-66.0); PLATELET COUNT, AUTOMATED 167 10^3/uL (150-450); RED BLOOD COUNT 2.96 10^6/uL (4.00-5.40); WHITE BLOOD COUNT 11.2 10^3/uL (4.0-10.0)
--- NOTE | 2020-10-12 20:08 | REP ---
INDICATION: SOB. COMPARISON: Comparison portable chest x-ray is from the previous day 11 October 2020. TECHNIQUE: Portable upright AP chest radiograph. FINDINGS: There are increased pleuroparenchymal densities and some pleural thickening in the right apex unchanged from recent prior chest x-rays. No new infiltrate is seen. Pleural angles are sharp. The heart the aorta is calcific and tortuous. Monitoring electrodes are seen. Is not enlarged. IMPRESSION: Increased pleuroparenchymal markings right upper lobe unchanged from multiple recent prior chest x-rays. No change from yesterday's comparison radiograph. <Electronically signed by Aravind Sumner > 10/12/202003
[2020-10-12 20:38] LABS: HEMOGLOBIN A1c 9.2 %
[2020-10-12 20:58] LABS: ACETONE/KETONE 1.52 MG/DL (<2.81); ALBUMIN 2.4 GM/DL (3.2-5.2); ALT/SGPT 34 U/L (12-78); BILIRUBIN,DIRECT < 0.1 MG/DL (0.0-0.2); BILIRUBIN,TOTAL 0.3 MG/DL (0.2-1.0); BLOOD UREA NITROGEN 28 MG/DL (7-18); CALCIUM LEVEL 8.2 MG/DL (8.8-10.2); CARBON DIOXIDE LEVEL 29 MEQ/L (21-32); CHLORIDE LEVEL 100 MEQ/L (98-107); CPK CREATINE PHOSPHOKINASE 53 U/L (26-192); CREATININE FOR GFR 1.12 MG/DL (0.55-1.30); GLOMERULAR FILTRATION RATE 50.5 (>39); GLUCOSE, FASTING 492 MG/DL (70-100); LIPASE 321 U/L (73-393); MAGNESIUM LEVEL 1.7 MG/DL (1.8-2.4); MB/CK RELATIVE INDEX 5.66 (< OR =4); PHOSPHORUS LEVEL 3.3 MG/DL (2.5-4.9); POTASSIUM SERUM 4.5 MEQ/L (3.5-5.1); SODIUM LEVEL 134 MEQ/L (136-145); TOTAL PROTEIN 5.3 GM/DL (6.4-8.2); TROPONIN I 0.04 NG/ML (< 0.10)
[2020-10-12 21:09] LABS: OSMOLALITY SERUM 309 MOSM/KG (280-301)
[2020-10-12] MEDS ORDERED: hydrALAZINE 20MG/ML 1ML VIAL (J0360 PER 20MG) IV PRN (22:15)
[2020-10-12] MEDS ORDERED: ACETAMINOPHEN TAB 650MG DOSE (2X325MG) PO PRN (22:15)
[2020-10-12] MEDS ORDERED: DEXTROSE 50% 50 ML SYRINGE IV PRN (22:20)
[2020-10-12] MEDS ORDERED: IPRATROPIUM 0.5MG/ALBUTEROL 2.5MG INH SOL UD 3ML (DUONEB) NEB PRN (22:20)
[2020-10-12] MEDS ORDERED: GLUCAGON INJ 1MG VIAL SC PRN (22:20)
[2020-10-12] MEDS ORDERED: GLUCOSE 4GM CHEW TABLET PO PRN (22:20)
--- NOTE | 2020-10-12 22:45 | HPEPDOC ---
General Date of Admission Oct 12, 2020 at 22:14 Date of Service: Oct 12, 2020 Chief Complaint The patient is a 75-year-old female admitted with a reason for visit of Copd With Acute Exacerabtion,Hyperglycemia,Hyperte. History of Present Illness Mrs. Ponce is a 75-year-old female with COPD and diabetes mellitus who returns to [facility] for dyspnea and high blood sugar. Last night she left AGAINST MEDICAL ADVICE because she wanted to go outside to smoke. She went home and she smoked. Patient is a poor historian and cannot tell me what happened afterwards except that she was short of breath. When I spoke with the ED provider, he told me that she had called EMS because she was worried about her blood sugar. She told ED provider that she gave herself some insulin as well. Otherwise, she is afebrile and in normal sinus. She has hypertensive urgency with a blood pressure of 231/101. She is on 4 L nasal cannula and saturating at 98. Historically, patient had a baseline of 2 L. She may be on too much oxygen at this time. Otherwise blood glucose is elevated at 492. HbA1c is 9.2. Her beta hydroxybutyrate is not elevated. Patient only complains of shortness of breath and chronic cough. Denies any fever, chest pain, abdominal pain, diarrhea, or dysuria. On physical exam she has tight airways and wheezing. Patient will be admitted for hypertensive urgency, COPD exacerbation, and high blood glucose Home Medications Scheduled Amlodipine Besylate (Amlodipine Besylate) 10 Mg Tablet, 10 MG PO QPM, (Reported) TAKES AT 1700 Atorvastatin Calcium (Atorvastatin Calcium) 40 Mg Tablet, 40 MG PO QHS, (Reported) Clopidogrel Bisulfate (Plavix) 75 Mg Tablet, 75 MG PO DAILY, (Reported) Duloxetine Hcl (Duloxetine HCl) 60 Mg Capsule.dr, 60 MG PO DAILY, (Reported) Fluticasone/Vilanterol (Breo Ellipta 200-25 Mcg INH) 1 Each Blst.w.dev, 1 PUFF INH DAILY, (Reported) Gabapentin (Gabapentin) 100 Mg Capsule, 100 MG PO QHS, (Reported) Hydralazine HCl (Hydralazine HCl) 50 Mg Tablet, 50 MG PO BID, (Reported) 0800, 1700 Insulin Detemir (Levemir) 100 Unit/1 Ml Vial, 20 UNITS SC DAILY, (Reported) TAKES AT 1500 Levothyroxine Sodium (Synthroid) 75 Mcg Tablet, 75 MCG PO DAILY, (Reported) Lisinopril (Lisinopril) 20 Mg Tablet, 20 MG PO BID, (Reported) 0800, 1700 Metformin HCl (Metformin HCl) 500 Mg Tablet, 500 MG PO BID, (Reported) 0800, 1700 Scheduled PRN Albuterol Sulfate (Proair Hfa) 8.5 Gm Hfa.aer.ad, 2 PUFF INH QID PRN for SHORTNESS OF BREATH, (Reported) Hydroxyzine HCl (Hydroxyzine HCl) 10 Mg Tablet, 10 MG PO Q8H PRN for ANXIETY, (Reported) Miscellaneous Medications [Patient Comment] , (Reported) MED REC COMPLETED VIA PREVIOUS DISCHARGE PAPERWORK (10/11/20) Allergies Coded Allergies: Sulfa (Sulfonamide Antibiotics) (Verified Allergy, Mild, RASH, 10/07/20) bacitracin (Verified Allergy, Mild, RASH, 10/07/20) cortisone (Verified Allergy, Mild, RASH, 10/07/20) neomycin (Verified Allergy, Mild, RASH, 10/07/20) polymyxin B (Verified Allergy, Mild, RASH, 10/07/20) red dye (Unverified Allergy, Mild, rash OCCURRED ONCE WITH CAPSULE MED NO OTHER PROBLEMS WIT, 10/07/20) fluoxetine (Unverified Allergy, Unknown, 10/07/20) tramadol (Unverified Allergy, Unknown, 10/07/20) HAS HAD OXYCODONE BEFORE WITHOUT ISSUE Past Medical History Medical History 1. Chronic back pain 2. L4 compression 3. Spinal stenosis 4. Peripheral vascular disease s/p right LE angioplasty with stenting 5. CKD 3 6. Bladder cancer 7. Severe COPD/emphysema 8. Dyslipidemia 9. Insulin-dependent diabetes mellitus 10. Hypothyroidism 11. Hypertension 12. CHF 13. Right upper lobe lung mass 14. Anxiety/depression Surgical History 1. Hysterectomy 2. Vaginal tumor removal 3. Bilateral leg stents 4. Lung mass removed 5. Bilateral cataract surgery Family History Father: at 76 year old, history of cerebral artery occlusion with cerebral infarct Mother: at 77 year old, history of AL and DM Social History * Smoker: current smoker A-FIB/CHADSVASC A-FIB History Current/History of A-Fib/PAF?: No Review of Systems Constitutional: Denies: Chills, Fever Eyes: Denies: Vision change ENT: Denies: Sore Throat Skin: Denies: Rash Pulmonary: Reports: Dyspnea, Cough Cardiovascular: Denies: Chest Pain Gastrointestinal: Denies: Abdominal Pain Genitourinary: Denies: Dysuria Hematologic: Denies: Bruising Neurological: Reports: Other Symptoms (Chronic neuropathy in feet bilaterally) Psych: Reports: Anxiety, Depression Physical Examination General Exam: Positive: Alert, Cooperative Eye Exam: Positive: EOMI; Negative: Sclera icteric ENT Exam: Positive: Atraumatic Neck Exam: Positive: Supple Chest Exam: Positive: Wheezing Heart Exam: Positive: Rate Normal, Regular Rhythm Abdomen Exam: Positive: Normal bowel sounds, Soft; Negative: Tenderness Extremity Exam: Negative: Edema Neuro Exam: Positive: Normal Speech, Cranial Nerves 3-12 NL Psych Exam: Positive: Anxiety Vital Signs Vital Signs Date Time Temp Pulse Resp B/P (MAP) Pulse Ox O2 Delivery O2 Flow Rate FiO2 10/12/20 22:00 86 18 212/93 (132) 98 Nasal Cannula 4.0 10/12/20 19:15 98.0 Laboratory Data Labs 24H Laboratory Tests 2 10/12/20 19:27: Immature Granulocyte % (Auto) 0.7, Neutrophils (%) (Auto) 82.5H, Lymphocytes (%) (Auto) 9.2L, Monocytes (%) (Auto) 5.9, Eosinophils (%) (Auto) 1.4, Basophils (%) (Auto) 0.3, Neutrophils # (Auto) 9.2H, Lymphocytes # (Auto) 1.0L, Monocytes # (Auto) 0.7, Eosinophils # (Auto) 0.2, Basophils # (Auto) 0.0, Nucleated Red Blood Cells % (auto) 0.0, Blood Gas Bicarbonate Standard 27.7, Venous Blood pH 7.443H, Venous Blood Partial Pressure CO2 41.9, Venous Blood Partial Pressure O2 112.7H, Venous Blood Total Carbon Dioxide 29.3H, Venous Blood HCO3 28.0H, Venous Blood Oxygen Saturation 97.6H, Venous Blood Base Excess 3.6H, Anion Gap 5L, Glomerular Filtration Rate 50.5, Estimated Mean Plasma Glucose 217H, Hemoglobin A1c 9.2, Osmolality 309H, Calcium Level 8.2L, Phosphorus Level 3.3, Magnesium Level 1.7L, Total Bilirubin 0.3, Direct Bilirubin < 0.1, Aspartate Amino Transf (AST/SGOT) 33, Alanine Aminotransferase (ALT/SGPT) 34, Alkaline Phosphatase 112, Total Creatine Kinase 53, Creatine Kinase MB 3.0, Creatine Kinase MB Relative Index 5.66H, Troponin I 0.04, Total Protein 5.3L, Albumin 2.4L, Albumin/Globulin Ratio 0.8L, Lipase 321, B-Hydroxybutyrate 1.52 10/12/20 19:40: Bedside Glucose (Misc Panel) 456H 10/12/20 21:04: Bedside Glucose (Misc Panel) 312H 10/12/20 22:15: CBC/BMP Laboratory Tests 10/12/20 19:27 Assessment/Plan Mrs. Ponce is a 75-year-old female with COPD and diabetes mellitus who returns to [facility] for dyspnea and high blood sugar. Her COPD exacerbation is most likely secondary to smoking. We will put her on Solu-Medrol and breathing tr eatments. We will restart her sliding scale insulin and carbohydrate consistent diet. Her antihypertensives will be restarted and be put on as needed IV hydralazine Plan / VTE VTE Prophylaxis Ordered?: Yes Plan Plan 1. COPD exacerbation IV Solu-Medrol DuoNeb's scheduled and as needed Continue inhalers Titrate oxygen to 88 to 92% 2. Hypertensive urgency Continue amlodipine, hydralazine, and lisinopril Added on as needed IV hydralazine 3. Uncontrolled diabetes mellitus Sliding scale insulin Continue Levemir 20 units subcu daily Carbohydrate consistent diet 4. Hyperlipidemia Continue atorvastatin 5. Hypothyroidism Continue levothyroxine 6. Anxiety/depression Continue duloxetine and as needed hydroxyzine 7. DVT PPx Lovenox Disposition: Pending clinical improved COLTON LEIVA DO Oct 12, 2020 22:45
[2020-10-12 22:59] LABS: RSV AMPLIFICATION NEGATIVE (NEGATIVE)
[2020-10-12] MEDS: HumaLOG INSULIN (NovoLOG) PER UNIT SC SCH (23:07)
[2020-10-12] MEDS ORDERED: GABA-1171 PO (23:22)
[2020-10-12] MEDS ORDERED: HYDR-643 PO (23:22)
[2020-10-12] MEDS ORDERED: SYNT75TA PO (23:22)
[2020-10-12] MEDS ORDERED: DULO1CAP6 PO (23:22)
[2020-10-12] MEDS ORDERED: LISI20TA33 PO (23:22)
[2020-10-12] MEDS ORDERED: HYDR-3911 PO (23:22)
[2020-10-12] MEDS ORDERED: AMLO1TAB25 PO (23:22)
[2020-10-12] MEDS ORDERED: BREO1INH3 INH (23:22)
[2020-10-12] MEDS ORDERED: METF-839 PO (23:22)
[2020-10-12] MEDS ORDERED: PROAAER10 INH (23:22)
[2020-10-12] MEDS ORDERED: PLAV1TAB2 PO (23:22)
[2020-10-12] MEDS ORDERED: INSUDET SC (23:22)
[2020-10-12] MEDS ORDERED: ATOR40TA75 PO (23:22)
[2020-10-12] MEDS ORDERED: PATIENT COMMENT (23:23)
[2020-10-12] MEDS ORDERED: HOME MED LIST COMPLETE! XX SCH (23:25)
[2020-10-13] VITALS (7 sets, daily range): BP systolic 123–177; BP diastolic 57–84
[2020-10-13] MEDS: methylPREDNISolone 40MG 1ML VIAL IV SCH ×3 (01:06→23:45)
[2020-10-13] MEDS: IPRATROPIUM 0.5MG/ALBUTEROL 2.5MG INH SOL UD 3ML (DUONEB) NEB SCH ×7 (04:00→22:24)
[2020-10-13 04:45] LABS: HEMATOCRIT 29.9 % (36.0-47.0); HEMOGLOBIN 9.7 g/dl (12.0-15.5); MEAN CORPUSCULAR HEMOGLOBIN 31.5 pg (27.0-33.0); MEAN CORPUSCULAR HGB CONC 32.4 g/dl (32.0-36.5); MEAN CORPUSCULAR VOLUME 97.1 fl (80.0-96.0); PLATELET COUNT, AUTOMATED 152 10^3/uL (150-450); RED BLOOD COUNT 3.08 10^6/uL (4.00-5.40); WHITE BLOOD COUNT 10.9 10^3/uL (4.0-10.0)
[2020-10-13 05:08] LABS: BLOOD UREA NITROGEN 21 MG/DL (7-18); CALCIUM LEVEL 8.1 MG/DL (8.8-10.2); CARBON DIOXIDE LEVEL 29 MEQ/L (21-32); CHLORIDE LEVEL 109 MEQ/L (98-107); CREATININE FOR GFR 0.77 MG/DL (0.55-1.30); GLOMERULAR FILTRATION RATE > 60.0 (>39); GLUCOSE, FASTING 49 MG/DL (70-100); POTASSIUM SERUM 4.1 MEQ/L (3.5-5.1); SODIUM LEVEL 145 MEQ/L (136-145)
[2020-10-13] MEDS: LEVOTHYROXINE 75MCG TABLET (0.075MG) PO SCH (05:15)
[2020-10-13] MEDS: ADVAIR HFA 230/21MCG INHALER INH SCH ×2 (08:00→22:23)
[2020-10-13] MEDS: ENOXAPARIN 40MG/0.4ML SYRINGE (J1650 PER 10MG) SC SCH (08:30)
[2020-10-13] MEDS: HumaLOG INSULIN (NovoLOG) PER UNIT SC SCH ×4 (08:31→21:00)
[2020-10-13] MEDS: **hydrALAZINE** 50 MG TAB PO SCH ×2 (08:32→16:25)
[2020-10-13] MEDS: CLOPIDOGREL 75 MG TAB PO SCH (08:32)
[2020-10-13] MEDS: NICOTINE 21MG/24HR 1 EA TRANSDERMAL TD SCH (08:32)
[2020-10-13] MEDS: DULoxetine 30 MG CAP (CYMBALTA) PO SCH (08:32)
[2020-10-13 08:44] LABS: CK-MB VALUE MASS 3.4 NG/ML (<3.6); MB/CK RELATIVE INDEX 9.44 (< OR =4); TROPONIN I 0.04 NG/ML (< 0.10)
[2020-10-13] MEDS ORDERED: FLUBLOK(EGG FREE)(QUAD)INFLUENZA VACC 0.5ML SYRINGE 18YRS & OLDER IM ONE (09:00)
--- NOTE | 2020-10-13 11:41 | ECGEPIP ---
[facility] - ED Test Date: 2020-10-12 Pat Name: ELA LIVINGSTON Department: Room: [place] [address] Gender: Female Ela Teacher: SHAKIRA : 1945 Requested By: NALDO CURRAN Order Number: [id number] Reading MD: Tika Ortega Measurements Intervals [place] Rate: 87 P: 65 [place]: 132 QRS: -2 QRSD: 100 T: 113 QT: 376 QTc: 452 Interpretive Statements Normal sinus rhythm Possible Left atrial enlargement septal infarct, age indeterminate Inferior infarct , age undetermined ST & T wave abnormality, consider ischemia increased rate 10/11/20 Electronically Signed on 10-13-2020 11:40:48 EDT by Tika Ortega
[2020-10-13] MEDS: LEVEMIR (INSULIN DETEMIR) 1 UNITS/0.01ML SC SCH (16:25)
[2020-10-13] MEDS: hydrOXYzine 10 MG TAB PO PRN (20:44)
[2020-10-13] MEDS ORDERED: HumaLOG INSULIN (NovoLOG) PER UNIT SC STA (20:59)
[2020-10-13] MEDS ORDERED: GABAPENTIN 100 MG CAP PO SCH (21:00)
[2020-10-13] MEDS ORDERED: ATORVASTATIN 20 MG TAB PO SCH (21:00)
[2020-10-13] MEDS ORDERED: CALCIUM CARBONATE 500 MG CHEW U/D PO ONE (21:25)
[2020-10-13 22:00] LABS: CALCIUM LEVEL 8.3 MG/DL (8.8-10.2); CREATININE FOR GFR 1.32 MG/DL (0.55-1.30); GLOMERULAR FILTRATION RATE 41.8 (>39); POTASSIUM SERUM 5.1 MEQ/L (3.5-5.1)
[2020-10-13] MEDS ORDERED: HumaLOG INSULIN (NovoLOG) PER UNIT SC ONE (23:25)
[2020-10-14 04:00] VITALS: BP 160/60
[2020-10-14] MEDS: IPRATROPIUM 0.5MG/ALBUTEROL 2.5MG INH SOL UD 3ML (DUONEB) NEB SCH ×6 (04:00→19:33)
[2020-10-14] MEDS: LEVOTHYROXINE 75MCG TABLET (0.075MG) PO SCH (04:45)
[2020-10-14 06:19] LABS: HEMATOCRIT 27.6 % (36.0-47.0); MEAN CORPUSCULAR HEMOGLOBIN 31.6 pg (27.0-33.0); MEAN CORPUSCULAR HGB CONC 32.6 g/dl (32.0-36.5); MEAN CORPUSCULAR VOLUME 96.8 fl (80.0-96.0); PLATELET COUNT, AUTOMATED 158 10^3/uL (150-450); RED BLOOD COUNT 2.85 10^6/uL (4.00-5.40); WHITE BLOOD COUNT 12.2 10^3/uL (4.0-10.0)
[2020-10-14 06:55] LABS: CALCIUM LEVEL 8.6 MG/DL (8.8-10.2); CREATININE FOR GFR 1.04 MG/DL (0.55-1.30); POTASSIUM SERUM 4.8 MEQ/L (3.5-5.1)
[2020-10-14 07:07] VITALS: BP 166/55
--- NOTE | 2020-10-14 07:18 | IPNPDOC ---
Text Note Date of Service The patient was seen on 10/13/20. NOTE Subjective: Patient seen and examined at bedside. No acute overnight events reported. Patient voices no new medical complaints. She is eager to be discharged home. Objective: Vital Signs: reviewed and within normal limits General: NAD, lying comfortably in bed, elderly, frail HEENT: NC/AT, EOMI Neck: supple, no masses Chest: diffuse wheezing Heart: +S1S2, RRR Abd: soft, NT, ND, +BS Ext: no edema Skin: no rashes MSK: full ROM at large joints Neuro: no gross focal deficits Psych: AAOx3 A/P: 75-year-old female well-known to the hospitalist service with over 13 hospital visits over the last two months, frequently leaving against medical advice, most recently 1 day ago where she again left AGAINST MEDICAL ADVICE, returns for shortness of breath. She was found to be hyperglycemic, not in DKA with uncontrolled hypertension. #COPD exacerbation IV Solu-Medrol DuoNeb's scheduled and as needed Continue inhalers Titrate oxygen to 88 to 92% #Hypertensive urgency Continue amlodipine, hydralazine, and lisinopril Added on as needed IV hydralazine #Uncontrolled diabetes mellitus Sliding scale insulin Continue Levemir 20 units subcu daily Carbohydrate consistent diet #medical non-compliance - complicates medical care # Hyperlipidemia Continue atorvastatin #Hypothyroidism Continue levothyroxine #Anxiety/depression Continue duloxetine and as needed hydroxyzine #DVT PPx Lovenox Disposition: Pending clinical improvement VS,William, I+O VS, William, I+O Laboratory Tests 10/13/20 21:12 10/14/20 04:36 Vital Signs Date Time Temp Pulse Resp B/P (MAP) Pulse Ox O2 Delivery O2 Flow Rate FiO2 10/14/20 07:07 98.4 91 22 166/55 (92) 98 Nasal Cannula 2.0 I&O- Last 24 Hours up to 6 AM 10/14/20 06:00 Intake Total 2260 ml Output Total 800 ml Balance 1460 ml CHAYO WOODS MD Oct 14, 2020 07:18
--- NOTE | 2020-10-14 07:18 | IPNPDOC ---
Text Note Date of Service The patient was seen on 10/14/20. NOTE Subjective: Patient seen and examined at bedside. Overnight her blood glucose was noted to quite variable from hyperglycemia to hypoglycemia. Patient voices no new medical complaints. Objective: Vital Signs: reviewed and within normal limits General: NAD, lying comfortably in bed, elderly, frail HEENT: NC/AT, EOMI Neck: supple, no masses Chest: diffuse wheezing Heart: +S1S2, RRR Abd: soft, NT, ND, +BS Ext: no edema Skin: no rashes MSK: full ROM at large joints Neuro: no gross focal deficits Psych: AAOx3 A/P: 75-year-old female well-known to the hospitalist service with over 13 hospital visits over the last two months, frequently leaving against medical advice, most recently 1 day ago where she again left AGAINST MEDICAL ADVICE, returns for shortness of breath. She was found to be hyperglycemic, not in DKA with uncontrolled hypertension. #COPD exacerbation IV Solu-Medrol - transition to prednisone tomorrow DuoNeb's scheduled and as needed Continue inhalers Titrate oxygen to 88 to 92% #Hypertensive urgency Continue amlodipine, hydralazine, and lisinopril PRN IV hydralazine - has not required #Uncontrolled diabetes mellitus Sliding scale insulin Continue Levemir 20 units subcu daily Carbohydrate consistent diet #medical non-compliance - complicates medical care # Hyperlipidemia Continue atorvastatin #Hypothyroidism Continue levothyroxine #Anxiety/depression Continue duloxetine and as needed hydroxyzine #DVT PPx Lovenox Disposition: Pending clinical improvement; later in day patient requested 4L supplemental oxygen, but was saturating 98% on 2L; discussed with patient at length over the phone. VS,Fishbone, I+O VS, Fishbone, I+O Laboratory Tests 10/13/20 21:12 10/14/20 04:36 Vital Signs Date Time Temp Pulse Resp B/P (MAP) Pulse Ox O2 Delivery O2 Flow Rate FiO2 10/14/20 07:07 98.4 91 22 166/55 (92) 98 Nasal Cannula 2.0 I&O- Last 24 Hours up to 6 AM 10/14/20 06:00 Intake Total 2260 ml Output Total 800 ml Balance 1460 ml CHAYO WOODS MD Oct 14, 2020 07:18
[2020-10-14] MEDS: ADVAIR HFA 230/21MCG INHALER INH SCH ×2 (07:19→19:33)
[2020-10-14] MEDS ORDERED: HumaLOG INSULIN (NovoLOG) PER UNIT SC SCH (07:30)
[2020-10-14] MEDS: NICOTINE 21MG/24HR 1 EA TRANSDERMAL TD SCH (09:49)
[2020-10-14] MEDS: CLOPIDOGREL 75 MG TAB PO SCH (09:50)
[2020-10-14] MEDS: ENOXAPARIN 40MG/0.4ML SYRINGE (J1650 PER 10MG) SC SCH (09:50)
[2020-10-14] MEDS: DULoxetine 30 MG CAP (CYMBALTA) PO SCH (09:50)
[2020-10-14] MEDS: **hydrALAZINE** 50 MG TAB PO SCH ×2 (09:56→17:22)
[2020-10-14] MEDS: HumaLOG INSULIN (NovoLOG) PER UNIT SC SCH ×3 (10:06→17:24)
[2020-10-14 11:43] VITALS: BP 166/72
[2020-10-14] MEDS: methylPREDNISolone 40MG 1ML VIAL IV SCH (14:08)
[2020-10-14] MEDS: hydrOXYzine 10 MG TAB PO PRN (14:29)
[2020-10-14] MEDS: LEVEMIR (INSULIN DETEMIR) 1 UNITS/0.01ML SC SCH (15:37)
[2020-10-14 15:38] VITALS: BP 160/72
[2020-10-14 17:23] VITALS: BP 160/72
[2020-10-15] MEDS ORDERED: predniSONE 20 MG TAB PO SCH (09:00)
--- NOTE | 2020-10-15 18:31 | DS.PDOC ---
Discharge Summary General Date of Admission Oct 12, 2020 at 22:14 Date of Discharge 10/14/2020 Discharge Summary PROCEDURES PERFORMED DURING STAY: [None]. ADMITTING DIAGNOSES: 1. . DISCHARGE DIAGNOSES: 1. . COMPLICATIONS/CHIEF COMPLAINT: Copd With Acute Exacerabtion,Hyperglycemia,Hyperte. HISTORY OF PRESENT ILLNESS: Mrs. Ponce is a 75-year-old female with COPD and diabetes mellitus who returns to [facility] for dyspnea and high blood sugar. Last night she left AGAINST MEDICAL ADVICE because she wanted to go outside to smoke. She went home and she smoked. Patient is a poor historian and cannot tell me what happened afterwards except that she was short of breath. When I spoke with the ED provider, he told me that she had called EMS because she was worried about her blood sugar. She told ED provider that she gave herself some insulin as well. Otherwise, she is afebrile and in normal sinus. She has hypertensive urgency with a blood pressure of 231/101. She is on 4 L nasal cannula and saturating at 98. Historically, patient had a baseline of 2 L. She may be on too much oxygen at this time. Otherwise blood glucose is elevated at 492. HbA1c is 9.2. Her beta hydroxybutyrate is not elevated. Patient only complains of shortness of breath and chronic cough. Denies any fever, chest pain, abdominal pain, diarrhea, or dysuria. On physical exam she has tight airways and wheezing. Patient will be admitted for hypertensive urgency, COPD exacerbation, and high blood glucose HOSPITAL COURSE: . DISCHARGE MEDICATIONS: Please see below. ALLERGIES: Please see below. PHYSICAL EXAMINATION ON DISCHARGE: VITAL SIGNS: Please see below. GENERAL: HEENT: NECK: CARDIOVASCULAR EXAMINATION: RESPIRATORY EXAMINATION: ABDOMINAL EXAMINATION: EXTREMITIES: SKIN: NEUROLOGICAL EXAMINATION: PSYCHIATRIC EXAMINATION: LABORATORY DATA: Please see below. IMAGING: PROGNOSIS: ACTIVITY: [As tolerated]. DIET: DISCHARGE PLAN: DISPOSITION: Against Medical Advice. DISCHARGE INSTRUCTIONS: 1. . ITEMS TO FOLLOWUP ON ON OUTPATIENT: 1. . DISCHARGE CONDITION: [Stable]. TIME SPENT ON DISCHARGE: minutes. Vital Signs/I&Os Vital Signs Date Time Temp Pulse Resp B/P (MAP) Pulse Ox O2 Delivery O2 Flow Rate FiO2 10/14/20 17:23 160/72 10/14/20 17:23 109 10/14/20 16:00 2.0 9/4/21 15:32 98.0 20 98 Nasal Cannula I&O- Last 24 Hours up to 6 AM 10/15/20 06:00 Intake Total 960 ml Output Total 750 ml Balance 210 ml Discharge Medications Scheduled Amlodipine Besylate (Amlodipine Besylate) 10 Mg Tablet, 10 MG PO QPM, (Reported) TAKES AT 1700 Atorvastatin Calcium (Atorvastatin Calcium) 40 Mg Tablet, 40 MG PO QHS, (Repor thomas) Clopidogrel Bisulfate (Plavix) 75 Mg Tablet, 75 MG PO DAILY, (Reported) Duloxetine Hcl (Duloxetine HCl) 60 Mg Capsule.dr, 60 MG PO DAILY, (Reported) Fluticasone/Vilanterol (Breo Ellipta 200-25 Mcg INH) 1 Each Blst.w.dev, 1 PUFF INH DAILY, (Reported) Gabapentin (Gabapentin) 100 Mg Capsule, 100 MG PO QHS, (Reported) Hydralazine HCl (Hydralazine HCl) 50 Mg Tablet, 50 MG PO BID, (Reported) 0800, 1700 Insulin Detemir (Levemir) 100 Unit/1 Ml Vial, 20 UNITS SC DAILY, (Reported) TAKES AT 1500 Levothyroxine Sodium (Synthroid) 75 Mcg Tablet, 75 MCG PO DAILY, (Reported) Lisinopril (Lisinopril) 20 Mg Tablet, 20 MG PO BID, (Reported) 0800, 1700 Metformin HCl (Metformin HCl) 500 Mg Tablet, 500 MG PO BID, (Reported) 0800, 1700 Scheduled PRN Albuterol Sulfate (Proair Hfa) 8.5 Gm Hfa.aer.ad, 2 PUFF INH QID PRN for S HORTNESS OF BREATH, (Reported) Hydroxyzine HCl (Hydroxyzine HCl) 10 Mg Tablet, 10 MG PO Q8H PRN for ANXIETY, (Reported) Miscellaneous Medications [Patient Comment] , (Reported) MED REC COMPLETED VIA PREVIOUS DISCHARGE PAPERWORK (10/11/20) Allergies Coded Allergies: Sulfa (Sulfonamide Antibiotics) (Verified Allergy, Mild, RASH, 10/07/20) bacitracin (Verified Allergy, Mild, RASH, 10/07/20) cortisone (Verified Allergy, Mild, RASH, 10/07/20) neomycin (Verified Allergy, Mild, RASH, 10/07/20) polymyxin B (Verified Allergy, Mild, RASH, 10/07/20) red dye (Unverified Allergy, Mild, rash OCCURRED ONCE WITH CAPSULE MED NO OTHER PROBLEMS WIT, 10/07/20) fluoxetine (Unverified Allergy, Unknown, 10/07/20) tramadol (Unverified Allergy, Unknown, 10/07/20) HAS HAD OXYCODONE BEFORE WITHOUT ISSUE CHAYO WOODS MD Oct 15, 2020 18:31
== END 2020-10-14 20:24 | disposition left against medical advice (07) | DRG 191 ==
LOC: M ED 19:00 → M ED INP 22:14 → ENRESERVTM 23:42 → ENRESERVDT 23:42 → M PCU 10-13 00:49
PROVIDERS: ADMIT Internal Medicine; ATTEND Internal Medicine
DX: J44.1 Chronic obstructive pulmonary disease with (acute) exacerbation (principal); I13.0 Hypertensive heart and chronic kidney disease with heart failure and stage 1 through stage 4 chronic kidney disease, or unspecified chronic kidney disease; I16.0 Hypertensive urgency; E11.65 Type 2 diabetes mellitus with hyperglycemia; F17.210 Nicotine dependence, cigarettes, uncomplicated; E11.649 Type 2 diabetes mellitus with hypoglycemia without coma; E11.51 Type 2 diabetes mellitus with diabetic peripheral angiopathy without gangrene; N18.30 Chronic kidney disease, stage 3 unspecified; E11.22 Type 2 diabetes mellitus with diabetic chronic kidney disease; E78.5 Hyperlipidemia, unspecified; E03.9 Hypothyroidism, unspecified; I50.9 Heart failure, unspecified; F41.9 Anxiety disorder, unspecified; F32.9 Major depressive disorder, single episode, unspecified; Z98.41 Cataract extraction status, right eye; Z98.42 Cataract extraction status, left eye; Z95.820 Peripheral vascular angioplasty status with implants and grafts; Z91.19 Patient's noncompliance with other medical treatment and regimen; Z79.4 Long term (current) use of insulin; Z79.02 Long term (current) use of antithrombotics/antiplatelets; Z79.899 Other long term (current) drug therapy; Z99.81 Dependence on supplemental oxygen; Z88.2 Allergy status to sulfonamides; Z88.1 Allergy status to other antibiotic agents; Z88.5 Allergy status to narcotic agent; Z88.8 Allergy status to other drugs, medicaments and biological substances

== ENCOUNTER 2020-10-18 02:30 | Inpatient (IN) | payer MEDICARE ==
[~2020-10-18] VITALS: Ht 157.5 cm; Wt 54.5 kg
[~2020-10-18 02:30] MED LIST changes: +DULO1CAP6 PO; +METF-839 PO; +SYNT75TA PO
[2020-10-18 03:05] LABS: BASO % 0.2 % (0.0-1.0); EOS # 0.3 10^3/uL (0.0-0.5); EOS % 2.6 % (0.0-3.0); HEMATOCRIT 29.6 % (36.0-47.0); HEMOGLOBIN 9.6 g/dl (12.0-15.5); LYMPH # 1.2 10^3/uL (1.5-5.0); LYMPH % 11.5 % (24.0-44.0); MEAN CORPUSCULAR HEMOGLOBIN 31.9 pg (27.0-33.0); MEAN CORPUSCULAR HGB CONC 32.4 g/dl (32.0-36.5); MEAN CORPUSCULAR VOLUME 98.3 fl (80.0-96.0); MONO # 0.7 10^3/uL (0.0-0.8); MONO % 6.7 % (2.0-8.0); NEUTROPHILS # 8.2 10^3/uL (1.5-8.5); NEUTROPHILS % 78.1 % (36.0-66.0); PLATELET COUNT, AUTOMATED 156 10^3/uL (150-450); RED BLOOD COUNT 3.01 10^6/uL (4.00-5.40); WHITE BLOOD COUNT 10.5 10^3/uL (4.0-10.0)
[2020-10-18 03:44] LABS: ALBUMIN 2.3 GM/DL (3.2-5.2); ALT/SGPT 35 U/L (12-78); BILIRUBIN,DIRECT < 0.1 MG/DL (0.0-0.2); BILIRUBIN,TOTAL 0.2 MG/DL (0.2-1.0); BLOOD UREA NITROGEN 26 MG/DL (7-18); CALCIUM LEVEL 8.3 MG/DL (8.8-10.2); CARBON DIOXIDE LEVEL 30 MEQ/L (21-32); CHLORIDE LEVEL 107 MEQ/L (98-107); CK-MB VALUE MASS 3.7 NG/ML (<3.6); CPK CREATINE PHOSPHOKINASE 53 U/L (26-192); CREATININE FOR GFR 0.98 MG/DL (0.55-1.30); GLOMERULAR FILTRATION RATE 58.9 (>39); GLUCOSE, FASTING 286 MG/DL (70-100); MB/CK RELATIVE INDEX 6.98 (< OR =4); NT-PRO BNP 10677 PG/ML (<450); POTASSIUM SERUM 4.6 MEQ/L (3.5-5.1); SODIUM LEVEL 142 MEQ/L (136-145); TOTAL PROTEIN 5.1 GM/DL (6.4-8.2); TROPONIN I 0.05 NG/ML (< 0.10)
--- NOTE | 2020-10-18 04:37 | ECGEPIP ---
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
--- NOTE | 2020-10-18 05:19 | REPVR ---
PROCEDURE INFORMATION: Exam: XR Chest Exam date and time: 10/18/2020 3:13 AM Age: 75 years old Clinical indication: Cough and dyspnea; Additional info: Dyspnea/cough TECHNIQUE: Imaging protocol: XR of the chest. Views: 1 view. COMPARISON: 1. CR PORTABLE CHEST X-RAY 10/11/2020 1:56:[address] Chest without contrast 10/08/2020 1:04:36 AM 3. CR Chest, 1 view 10/12/2020 7:44 PM FINDINGS: Lungs: Architectural distortion and peripheral opacity in the right upper lobe are again noted, similar to the most recent prior exam. There is a small amount of patchy poorly defined opacity in the right lung base which is slightly pronounced than on the prior exam. Slight prominence of markings in the left lung base appears unchanged. Pleural spaces: Right-sided pleural thickening and/or partially loculated right pleural fluid appears similar to the most recent prior exam. No pneumothorax is seen. Heart/Mediastinum: The heart is normal in size. Thoracic aortic calcifications are noted. Bones/joints: A fracture of the right 8th rib laterally is again noted, which was present and did not appear acute on the CT scan from October 08, 2020. IMPRESSION: 1. Architectural distortion, parenchymal opacity, and pleural thickening in the right upper lobe, without significant change. 2. Some increase in patchy consolidation in the right lung base, which may be an infectious/inflammatory process or atelectasis. Electronically signed by: oRna Segal On 10/18/2020 05:19:23 AM
[2020-10-18] MEDS ORDERED: ACETAMINOPHEN TAB 650MG DOSE (2X325MG) PO PRN (06:15)
[2020-10-18] MEDS ORDERED: GLUCOSE 4GM CHEW TABLET PO PRN (06:15)
[2020-10-18] MEDS ORDERED: DEXTROSE 50% 50 ML SYRINGE IV PRN (06:15)
[2020-10-18] MEDS ORDERED: GLUCAGON INJ 1MG VIAL SC PRN (06:15)
[2020-10-18] MEDS ORDERED: IPRATROPIUM 0.5MG/ALBUTEROL 2.5MG INH SOL UD 3ML (DUONEB) NEB PRN (06:15)
[2020-10-18] MEDS ORDERED: HOME MED LIST COMPLETE! XX SCH (06:25)
[2020-10-18] MEDS ORDERED: ALBUTEROL 90 MCG/ACT 8GM HFA INHALER INH PRN (06:30)
[2020-10-18] MEDS ORDERED: hydrOXYzine 10 MG TAB PO PRN (06:30)
--- NOTE | 2020-10-18 06:56 | IPNPDOC ---
Text Note Date of Service The patient was seen on 10/18/20. NOTE time of service 620am Ms. Ponce is a 75 yr old re-admitted for acute COPD and HTN Urgency. Despite being advised to quit she continues to smoke which is likely the trigger for the acute COPD and accelerated HTN. A CT of the chest done in Sep revealed some nodules and recommended repeat imaging in 3 to 6 months (she can f/u w her PCP for this). rest per 's H&P VS,Yevgeniye, I+O VS, William, I+O Laboratory Tests 10/18/20 02:56 Vital Signs Date Time Temp Pulse Resp B/P (MAP) Pulse Ox O2 Delivery O2 Flow Rate FiO2 10/18/20 06:30 81 22 185/86 (119) 95 Nasal Cannula 2.0 10/18/20 02:36 97.0 AALIYAH KWAN MD Oct 18, 2020 06:56
--- NOTE | 2020-10-18 06:57 | HPEPDOC ---
[facility] Medical History & Physical Date of Admission Oct 18, 2020 Date of Service: Oct 18, 2020 Attending Physician: AALIYAH KWAN MD History and Physical CHIEF COMPLAINT: Shortness of breath HISTORY OF PRESENT ILLNESS: Patient is a 75-year-old female with a history of multiple admissions and subsequent departures AGAINST MEDICAL ADVICE who presents with chief complaint of shortness of breath. She states sometime earlier this evening she became breathless and despite inhaler use was unable to recover so she elected to call EMS. She does not recall what exactly she was doing at the time whether it was exertional or whether she had other associated symptoms only that she became breathless during the incident. Currently she has no complaints and is feeling better than when she initially came in. In the emergency department she received no medical therapy but did have lab work demonstrating a mildly elevated white blood cell count with neutrophilia, macrocytic anemia, troponin of 0.05, proBNP of 10,677, lactic acid of 2, with unremarkable ABG. REVIEW OF SYSTEMS: Constitutional: Denies fevers, chills, night sweats, or recent unexpected weight change HEENT: Denies headaches, head trauma, no visual changes or eye pain, denies nosebleeds or difficulty swallowing. Cardiovascular: Denies chest pain, palpitations, or orthopnea. Respiratory: Admits to chronic productive cough with yellow sputum, admits to wheezing and shortness of breath as per HPI GI: Denies nausea, vomiting, abdominal pain, diarrhea, or constipation : Denies pain with urination or frequency Musculoskeletal: Denies joint pain or swelling Neuro/psych: Denies muscle weakness or sensory loss Skin: Denies skin rashes PAST MEDICAL HISTORY: 1. Chronic back pain 2. L4 compression 3. Spinal stenosis 4. Peripheral vascular disease s/p right LE angioplasty with stenting 5. CKD 3 6. Bladder cancer 7. Severe COPD/emphysema 8. Dyslipidemia 9. Insulin-dependent diabetes mellitus 10. Hypothyroidism 11. Hypertension 12. CHF 13. Right upper lobe lung mass 14. Anxiety/depression PAST SURGICAL HISTORY: 1. Hysterectomy 2. Vaginal tumor removal 3. Bilateral leg stents 4. Lung mass removed 5. Bilateral cataract surgery SOCIAL HISTORY: 1/2 packs/day since age 11 Denies alcohol use. Denies marijuana, heroin, cocaine, PCP, or other illicit drug use. FAMILY HISTORY: Reviewed, non-contributory ALLERGIES: Please see below. HOME MEDICATIONS: Please see below. PHYSICAL EXAMINATION: VITAL SIGNS: See below GENERAL APPEARANCE: Frail appearing female laying on her left side with nasal cannula applied in no acute distress speaking in complete sentences HEENT: NC, AT, EOMI, no scleral icterus, moist mucous membranes, no pharyngeal erythema. CARDIOVASCULAR: RRR, normal S1-S2. No murmurs, gallops, rubs. LUNGS: CTAB with full breath sounds, no wheezes, crackles, or rhonchi. No use of accessory muscles of respiration. ABDOMEN: Soft, nontender, nondistended, bowel sounds present. No hepatosplenomegaly. No masses or ecchymosis. No CVA tenderness. EXTREMITIES: No swelling or edema NEUROLOGICAL: No focal or sensory deficits. CN II-XII grossly intact. PSYCHIATRIC: Normal mood and affect LABORATORY DATA: See below. IMAGIN10/18/2020 chest x-ray: "IMPRESSION: 1. Architectural distortion, parenchymal opacity, and pleural thickening in the right upper lobe, without significant change. 2. Some increase in patchy consolidation in the right lung base, which may be an infectious/inflammatory process or atelectasis. " MICROBIOLOGY: Please see below. Assessment/Plan: #. Acute on chronic COPD exacerbation Patient clinically is significantly improved per ED report however she remains nervous that she may go back into an exacerbation. As needed nebulizer therapy, oral prednisone, incentive spirometry, Acapella, inhaled LABA/ICS, COPD diet, oxygen therapy, currently on less than home O2 at 2 L, titrate between 88 to 92%. #. Infiltrate on chest x-ray Patient states she has chronic yellow sputum production which may just be a byproduct of her smoking and COPD in general Ordering procalcitonin, will start IV doxycycline both for anti-inflammatory effect for COPD as well as to treat possible pneumonia. In the event procalcitonin normal okay to DC. #. Chronic hypoxemic respiratory failure Patient is on home oxygen, titrate for O2 between 88 to 92% #. Macrocytic anemia -Unchanged from prior admissions #. Hypertensive urgency Continue with home lisinopril, hydralazine, amlodipine #. Type 2 diabetes Sliding scale insulin, home Levemir Consistent carbohydrate diet #. Elevated Pro-BNP -Patient is clinically euvolemic #. Hyperlipidemia Continue home atorvastatin #. Hypothyroidism Continue home levothyroxine #. Anxiety/depression Continue home duloxetine and as needed hydroxyzine #. History of noncompliance Complicating care -Patient has an extensive PMHx with medical problems that require follow-up on an outpatient basis. DVT prophylaxis: Lovenox, teds and sequentials Disposition: Pending clinical improvement Vital Signs Vital Signs Date Time Temp Pulse Resp B/P (MAP) Pulse Ox O2 Delivery O2 Flow Rate FiO2 10/18/20 05:45 85 20 188/85 (119) 95 Nasal Cannula 2.0 10/18/20 02:36 97.0 Laboratory Data Labs 24H Laboratory Tests 2 10/18/20 02:56: Immature Granulocyte % (Auto) 0.9, Neutrophils (%) (Auto) 78.1H, Lymphocytes (%) (Auto) 11.5L, Monocytes (%) (Auto) 6.7, Eosinophils (%) (Auto) 2.6, Basophils (%) (Auto) 0.2, Neutrophils # (Auto) 8.2, Lymphocytes # (Auto) 1.2L, Monocytes # (Auto) 0.7, Eosinophils # (Auto) 0.3, Basophils # (Auto) 0.0, Nucleated Red Blood Cells % (auto) 0.0, Anion Gap 5L, Glomerular Filtration Rate 58.9, Lactic Acid Level 2.0, Calcium Level 8.3L, Total Bilirubin 0.2, Direct Bilirubin < 0.1, Aspartate Amino Transf (AST/SGOT) 19, Alanine Aminotransferase (ALT/SGPT) 35, Alkaline Phosphatase 109, Total Creatine Kinase 53, Creatine Kinase MB 3.7H, Creatine Kinase MB Relative Index 6.98H, Troponin I 0.05, [id number]-Type Sydni riuretic Peptide [id number], Total Protein 5.1L, Albumin 2.3L, Albumin/Globulin Ratio 0.8L 10/18/20 03:11: POC pH (Misc Panel) 7.463H, POC Base Excess (Misc Panel) 5.0H, POC Saturated Percent O2 (Misc) 96, POC pO2 (Misc Panel) 76.0L, POC pCO2 (Misc Panel) 39.7, POC HCO3 (Misc Panel) 28.5H, POC Total CO2 (Misc Panel) 30.0H CBC/BMP Laboratory Tests 10/18/20 02:56 Microbiology Microbiology 10/18/20 Blood Culture, Received Pending 10/18/20 Blood Culture, Received Pending 10/18/20 Respiratory Virus Panel (PCR) (SANDRA) - Final, Complete Home Medications Scheduled Amlodipine Besylate (Amlodipine Besylate) 10 Mg Tablet, 10 MG PO QPM TAKES AT 1700 Atorvastatin Calcium (Atorvastatin Calcium) 40 Mg Tablet, 40 MG PO QHS Clopidogrel Bisulfate (Plavix) 75 Mg Tablet, 75 MG PO DAILY Duloxetine Hcl (Duloxetine HCl) 60 Mg Capsule.dr, 60 MG PO DAILY Fluticasone/Vilanterol (Breo Ellipta 200-25 Mcg INH) 1 Each Blst.w.dev, 1 PUFF INH DAILY Gabapentin (Gabapentin) 100 Mg Capsule, 100 MG PO QHS Hydralazine HCl (Hydralazine HCl) 50 Mg Tablet, 50 MG PO BID 0800, 1700 Insulin Detemir (Levemir) 100 Unit/1 Ml Vial, 20 UNITS SC DAILY TAKES AT 1500 Levothyroxine Sodium (Synthroid) 75 Mcg Tablet, 75 MCG PO DAILY Lisinopril (Lisinopril) 20 Mg Tablet, 20 MG PO BID 0800, 1700 Metformin HCl (Metformin HCl) 500 Mg Tablet, 500 MG PO BID 0800, 1700 Scheduled PRN Albuterol Sulfate (Proair Hfa) 8.5 Gm Hfa.aer.ad, 2 PUFF INH QID PRN for SHORTNESS OF BREATH Hydroxyzine HCl (Hydroxyzine HCl) 10 Mg Tablet, 10 MG PO Q8H PRN for ANXIETY Miscellaneous Medications [Patient Comment] MED REC COMPLETED VIA PREVIOUS DISCHARGE PAPERWORK (10/14/20) Allergies Coded Allergies: Sulfa (Sulfonamide Antibiotics) (Verified Allergy, Mild, RASH, 10/07/20) bacitracin (Verified Allergy, Mild, RASH, 10/07/20) cortisone (Verified Allergy, Mild, RASH, 10/07/20) neomycin (Verified Allergy, Mild, RASH, 10/07/20) polymyxin B (Verified Allergy, Mild, RASH, 10/07/20) red dye (Unverified Allergy, Mild, rash OCCURRED ONCE WITH CAPSULE MED NO OTHER PROBLEMS WIT, 10/07/20) fluoxetine (Unverified Allergy, Unknown, 10/07/20) tramadol (Unverified Allergy, Unknown, 10/07/20) HAS HAD OXYCODONE BEFORE WITHOUT ISSUE GME ATTESTATION GME ATTESTATION My faculty preceptor for this patient encounter was physically present during the encounter and was fully available. All aspects of the patient interview, examination, medical decision making process, and medical care plan development were reviewed and approved by the faculty preceptor. The faculty preceptor is aware and concurs with the plan as stated in the body of this note and will attest to such by his/her cosignature. KORIN LUNA DO Oct 18, 2020 06:57 AALIYAH KWAN MD Oct 19, 2020 06:17
[2020-10-18] MEDS ORDERED: HumaLOG INSULIN (NovoLOG) PER UNIT SC SCH ×2 (07:30→21:00)
[2020-10-18] MEDS ORDERED: DOXYCYCLINE HYCLATE 100 MG in D5W MINI-BAG PLUS 100 ML IV SCH (08:00)
[2020-10-18] MEDS ORDERED: SYMBICORT 80/4.5MCG INHALER 6GM INH SCH (08:00)
[2020-10-18] MEDS ORDERED: **hydrALAZINE** 50 MG TAB PO SCH (08:00)
[2020-10-18 08:37] VITALS: BP 150/80
[2020-10-18] MEDS ORDERED: ENOXAPARIN 40MG/0.4ML SYRINGE (J1650 PER 10MG) SC SCH (09:00)
[2020-10-18] MEDS ORDERED: LEVOTHYROXINE 75MCG TABLET (0.075MG) PO SCH (09:00)
[2020-10-18] MEDS ORDERED: CLOPIDOGREL 75 MG TAB PO SCH (09:00)
[2020-10-18] MEDS ORDERED: NICOTINE 21MG/24HR 1 EA TRANSDERMAL TD SCH (09:00)
[2020-10-18] MEDS ORDERED: FUROSEMIDE 40MG/4ML VIAL (J1940) IV SCH (09:00)
[2020-10-18] MEDS ORDERED: DULoxetine 30 MG CAP (CYMBALTA) PO SCH (09:00)
[2020-10-18] MEDS ORDERED: predniSONE 20 MG TAB PO SCH (09:00)
[2020-10-18 10:10] VITALS: BP 150/80
[2020-10-18 12:00] VITALS: BP 162/82
--- NOTE | 2020-10-18 13:13 | IPNPDOC ---
Text Note Date of Service The patient was seen on 10/18/20. NOTE Subjective: Patient stated that her breathing slightly improved. Patient told me that she smokes 5 to 6 cigarettes daily. Objective: GENERAL APPEARANCE: NAD HEENT: no scleral icterus, no JVD, EOMI CARDIOVASCULAR: S1S2 LUNGS: Mildly coarse lung sounds bilaterally ABDOMEN: soft & not tender w palpation MUSCULOSKELETAL: no cyanosis, no swelling INTEGUMENT: no generalized pallor NEUROLOGICAL: cranial nerve function from 2-12 intact, follows commands, speech not dysarthric Assessment and plan Patient is 75 years old female with past medical history of chronic back pain, peripheral vascular disease, CVA COPD, emphysema, who is active smoker presented to hospital with increased shortness of breath. Dyspnea Multifactorial secondary to acute on chronic COPD exacerbation and acute CHF Continue oxygen treatment. Procalcitonin negative, discontinue doxycycline Acute on chronic COPD Patient stated that her oxygen requirements increased from her baseline Continue inhalers, continue steroids Smoking abuse Intensive counseling Acute on chronic hypoxemic respiratory failure Secondary to COPD exacerbation titrate for O2 between 88 to 92% [place] [address] Echo I's and O's Lasix IV twice daily Macrocytic anemia We will check B12, folate Hypertensive urgency/hypertension Continue home meds Hydralazine as needed Type 2 diabetes Continue Levemir 20 units daily Insulin sliding scale Diabetes diet Hyperlipidemia Continue statin Hypothyroidism Continue levothyroxine Anxiety/depression continue home meds History of noncompliance Complicated care When I was doing my progress note I was informed by nurse that there patient is going to leave the hospital AGAINST MEDICAL ADVICE VSWilliam, I+O VSWilliam, I+O Laboratory Tests 10/18/20 02:56 Vital Signs Date Time Temp Pulse Resp B/P (MAP) Pulse Ox O2 Delivery O2 Flow Rate FiO2 10/18/20 10:10 150/80 10/18/20 08:37 98.1 83 18 97 Nasal Cannula 3.0 LAVINIA STEWART DO Oct 18, 2020 13:13
[2020-10-18] MEDS ORDERED: LEVEMIR (INSULIN DETEMIR) 1 UNITS/0.01ML SC SCH ×2 (13:30→15:00)
[2020-10-18] MEDS ORDERED: IPRATROPIUM 0.5MG/ALBUTEROL 2.5MG INH SOL UD 3ML (DUONEB) NEB SCH (14:00)
--- NOTE | 2020-10-18 16:12 | DS.PDOC ---
Discharge Summary General Date of Admission Oct 18, 2020 at 07:46 Date of Discharge 10/18/20 Discharge Summary PROCEDURES PERFORMED DURING STAY: [None]. ADMITTING DIAGNOSES: Dyspnea Acute on chronic COPD Smoking abuse Acute diastolic CHF Acute on chronic hypoxemic respiratory failure Macrocytic anemia Hypertensive urgency/hypertension Type 2 diabetes Hyperlipidemia Hypothyroidism Anxiety/depression continue home meds History of noncompliance DISCHARGE DIAGNOSES: Dyspnea Acute on chronic COPD Smoking abuse Acute diastolic CHF Acute on chronic hypoxemic respiratory failure Macrocytic anemia Hypertensive urgency/hypertension Type 2 diabetes Hyperlipidemia Hypothyroidism Anxiety/depression continue home meds History of noncompliance COMPLICATIONS/CHIEF COMPLAINT: Copd W/ Acute Exacerbation. HISTORY OF PRESENT ILLNESS: Patient is 75 years old female with past medical history of chronic back pain, peripheral vascular disease, CVA COPD, emphysema, who is active smoker presented to hospital with increased shortness of breath. HOSPITAL COURSE: Patient left facility in the morning AGAINST MEDICAL ADVICE DISCHARGE MEDICATIONS: Please see below. ALLERGIES: Please see below. PHYSICAL EXAMINATION ON DISCHARGE: VITAL SIGNS: Please see below. GENERAL APPEARANCE: NAD HEENT: no scleral icterus, no JVD, EOMI CARDIOVASCULAR: S1S2 LUNGS: Mildly coarse lung sounds bilaterally ABDOMEN: soft & not tender w palpation MUSCULOSKELETAL: no cyanosis, no swelling INTEGUMENT: no generalized pallor NEUROLOGICAL: cranial nerve function from 2-12 intact, follows commands, speech not dysarthric LABORATORY DATA: Please see below. IMAGING: PROGNOSIS: ACTIVITY: [As tolerated]. DIET: DISCHARGE PLAN: DISPOSITION: Against Medical Advice. DISCHARGE INSTRUCTIONS: 1. . ITEMS TO FOLLOWUP ON ON OUTPATIENT: 1. . DISCHARGE CONDITION: [Stable]. TIME SPENT ON DISCHARGE: minutes. Vital Signs/I&Os Vital Signs Date Time Temp Pulse Resp B/P (MAP) Pulse Ox O2 Delivery O2 Flow Rate FiO2 10/18/20 12:00 3.0 10/18/20 12:00 97.2 93 20 162/82 (108) 100 Nasal Cannula Laboratory Data Labs 24H Laboratory Tests 2 10/18/20 02:56: Immature Granulocyte % (Auto) 0.9, Neutrophils (%) (Auto) 78.1H, Lymphocytes (%) (Auto) 11.5L, Monocytes (%) (Auto) 6.7, Eosinophils (%) (Auto) 2.6, Basophils (%) (Auto) 0.2, Neutrophils # (Auto) 8.2, Lymphocytes # (Auto) 1.2L, Monocytes # (Auto) 0.7, Eosinophils # (Auto) 0.3, Basophils # (Auto) 0.0, Nucleated Red Blood Cells % (auto) 0.0, Anion Gap 5L, Glomerular Filtration Rate 58.9, Lactic Acid Level 2.0, Calcium Level 8.3L, Total Bilirubin 0.2, Direct Bilirubin < 0.1, Aspartate Amino Transf (AST/SGOT) 19, Alanine Aminotransferase (ALT/SGPT) 35, Alkaline Phosphatase 109, Total Creatine Kinase 53, Creatine Kinase MB 3.7H, Creatine Kinase MB Relative Index 6.98H, Troponin I 0.05, [id number]-Type Natriuretic Peptide [id number], Total Protein 5.1L, Albumin 2.3L, Albumin/Globulin Ratio 0.8L 10/18/20 03:11: POC pH (Misc Panel) 7.463H, POC Base Excess (Misc Panel) 5.0H, POC Saturated Percent O2 (Misc) 96, POC pO2 (Misc Panel) 76.0L, POC pCO2 (Misc Panel) 39.7, POC HCO3 (Misc Panel) 28.5H, POC Total CO2 (Misc Panel) 30.0H 10/18/20 09:01: Troponin I 0.04, Procalcitonin 0.05 10/18/20 11:14: Lab Scanned Report Miscellaneous Lab 10/18/20 12:26: Bedside Glucose (Misc Panel) 502*H 10/18/20 12:55: Bedside Glucose Confirm (Misc) 560*H CBC/BMP Laboratory Tests 10/18/20 02:56 FSBS Laboratory Tests Test 10/18/20 12:26 Range/Units Bedside Glucose (Misc Panel) 502 83-110 MG/DL Microbiology Microbiology 10/18/20 Blood Culture, Received Pending 10/18/20 Blood Culture, Received Pending 10/18/20 Respiratory Virus Panel (PCR) (SANDRA) - Final, Complete Discharge Medications Scheduled Amlodipine Besylate (Amlodipine Besylate) 10 Mg Tablet, 10 MG PO QPM, (Reported) TAKES AT 1700 Atorvastatin Calcium (Atorvastatin Calcium) 40 Mg Tablet, 40 MG PO QHS, (Reported) Clopidogrel Bisulfate (Plavix) 75 Mg Tablet, 75 MG PO DAILY, (Reported) Duloxetine Hcl (Duloxetine HCl) 60 Mg Capsule.dr, 60 MG PO DAILY, (Reported) Fluticasone/Vilanterol (Breo Ellipta 200-25 Mcg INH) 1 Each Blst.w.dev, 1 PUFF INH DAILY, (Reported) Gabapentin (Gabapentin) 100 Mg Capsule, 100 MG PO QHS, (Reported) Hydralazine HCl (Hydralazine HCl) 50 Mg Tablet, 50 MG PO BID, (Reported) 0800, 1700 Insulin Detemir (Levemir) 100 Unit/1 Ml Vial, 20 UNITS SC DAILY, (Reported) TAKES AT 1500 Levothyroxine Sodium (Synthroid) 75 Mcg Tablet, 75 MCG PO DAILY, (Reported) Lisinopril (Lisinopril) 20 Mg Tablet, 20 MG PO BID, (Reported) 0800, 1700 Metformin HCl (Metformin HCl) 500 Mg Tablet, 500 MG PO BID, (Reported) 0800, 1700 Scheduled PRN Albuterol Sulfate (Proair Hfa) 8.5 Gm Hfa.aer.ad, 2 PUFF INH QID PRN for SHORTNESS OF BREATH, (Reported) Hydroxyzine HCl (Hydroxyzine HCl) 10 Mg Tablet, 10 MG PO Q8H PRN for ANXIETY, (Reported) Miscellaneous Medications [Patient Comment] , (Reported) MED REC COMPLETED VIA PREVIOUS DISCHARGE PAPERWORK (10/14/20) Allergies Coded Allergies: Sulfa (Sulfonamide Antibiotics) (Verified Allergy, Mild, RASH, 10/07/20) bacitracin (Verified Allergy, Mild, RASH, 10/07/20) cortisone (Verified Allergy, Mild, RASH, 10/07/20) neomycin (Verified Allergy, Mild, RASH, 10/07/20) polymyxin B (Verified Allergy, Mild, RASH, 10/07/20) red dye (Unverified Allergy, Mild, rash OCCURRED ONCE WITH CAPSULE MED NO OTHER PROBLEMS WIT, 10/07/20) fluoxetine (Unverified Allergy, Unknown, 10/07/20) tramadol (Unverified Allergy, Unknown, 10/07/20) HAS HAD OXYCODONE BEFORE WITHOUT ISSUE LAVINIA STEWART DO Oct 18, 2020 16:11
[2020-10-18] MEDS ORDERED: GABAPENTIN 100 MG CAP PO SCH (21:00)
[2020-10-18] MEDS ORDERED: ATORVASTATIN 20 MG TAB PO SCH (21:00)
== END 2020-10-18 13:50 | disposition left against medical advice (07) | DRG 190 ==
LOC: M ED 02:30 → ENRESERV 06:40 → M ED INP 07:46 → M PCU 08:00
PROVIDERS: ADMIT Internal Medicine; ATTEND Internal Medicine
DX: J44.1 Chronic obstructive pulmonary disease with (acute) exacerbation (principal); J96.21 Acute and chronic respiratory failure with hypoxia; I50.31 Acute diastolic (congestive) heart failure; I13.0 Hypertensive heart and chronic kidney disease with heart failure and stage 1 through stage 4 chronic kidney disease, or unspecified chronic kidney disease; D53.9 Nutritional anemia, unspecified; I16.0 Hypertensive urgency; E11.51 Type 2 diabetes mellitus with diabetic peripheral angiopathy without gangrene; E78.5 Hyperlipidemia, unspecified; I50.9 Heart failure, unspecified; N18.30 Chronic kidney disease, stage 3 unspecified; F32.9 Major depressive disorder, single episode, unspecified; E03.9 Hypothyroidism, unspecified; E11.22 Type 2 diabetes mellitus with diabetic chronic kidney disease; F41.9 Anxiety disorder, unspecified; F17.210 Nicotine dependence, cigarettes, uncomplicated; Z91.19 Patient's noncompliance with other medical treatment and regimen; Z79.4 Long term (current) use of insulin; Z79.899 Other long term (current) drug therapy; Z79.02 Long term (current) use of antithrombotics/antiplatelets; Z88.2 Allergy status to sulfonamides; Z88.5 Allergy status to narcotic agent; Z88.8 Allergy status to other drugs, medicaments and biological substances; Z91.048 Other nonmedicinal substance allergy status; Z95.820 Peripheral vascular angioplasty status with implants and grafts; Z85.51 Personal history of malignant neoplasm of bladder; Z98.41 Cataract extraction status, right eye; Z98.42 Cataract extraction status, left eye

== ENCOUNTER 2020-10-26 21:40 | Inpatient (IN) | payer MEDICARE ==
[~2020-10-26] VITALS: Ht 160 cm; Wt 56.8 kg
[~2020-10-26 21:40] MED LIST changes: -CEFD1CAP8 PO; +CEFD300C41 PO; +DOXY-443 PO; -DOXY1CAP62 PO; -LISI-898 PO; +LISI5TAB11 PO; -OMEP-221 PO; +OMEP40CA5 PO
[2020-10-26 22:36] LABS: BASO % 0.2 % (0.0-1.0); EOS # 0.1 10^3/uL (0.0-0.5); EOS % 1.2 % (0.0-3.0); HEMATOCRIT 26.4 % (36.0-47.0); HEMOGLOBIN 8.6 g/dl (12.0-15.5); LYMPH # 0.7 10^3/uL (1.5-5.0); LYMPH % 8.3 % (24.0-44.0); MEAN CORPUSCULAR HEMOGLOBIN 31.5 pg (27.0-33.0); MEAN CORPUSCULAR HGB CONC 32.6 g/dl (32.0-36.5); MEAN CORPUSCULAR VOLUME 96.7 fl (80.0-96.0); MONO # 0.5 10^3/uL (0.0-0.8); MONO % 5.8 % (2.0-8.0); NEUTROPHILS # 6.9 10^3/uL (1.5-8.5); PLATELET COUNT, AUTOMATED 151 10^3/uL (150-450); RED BLOOD COUNT 2.73 10^6/uL (4.00-5.40); WHITE BLOOD COUNT 8.3 10^3/uL (4.0-10.0)
[2020-10-26 23:12] LABS: RSV AMPLIFICATION NEGATIVE (NEGATIVE)
[2020-10-26 23:17] LABS: ALBUMIN 2.1 GM/DL (3.2-5.2); ALT/SGPT 23 U/L (12-78); BILIRUBIN,DIRECT < 0.1 MG/DL (0.0-0.2); BILIRUBIN,TOTAL 0.2 MG/DL (0.2-1.0); BLOOD UREA NITROGEN 24 MG/DL (7-18); CARBON DIOXIDE LEVEL 26 MEQ/L (21-32); CHLORIDE LEVEL 106 MEQ/L (98-107); CPK CREATINE PHOSPHOKINASE 41 U/L (26-192); CREATININE FOR GFR 1.16 MG/DL (0.55-1.30); GLOMERULAR FILTRATION RATE 48.5 (>39); GLUCOSE, FASTING 339 MG/DL (70-100); MB/CK RELATIVE INDEX 9.76 (< OR =4); NT-PRO BNP 7403 PG/ML (<450); POTASSIUM SERUM 4.2 MEQ/L (3.5-5.1); SODIUM LEVEL 142 MEQ/L (136-145); TOTAL PROTEIN 4.7 GM/DL (6.4-8.2); TROPONIN I 0.04 NG/ML (< 0.10)
[2020-10-26] MEDS ORDERED: AZITHROMYCIN 250MG TABLET PO ONE (23:25)
[2020-10-26] MEDS ORDERED: IPRATROPIUM 0.5MG/ALBUTEROL 2.5MG INH SOL UD 3ML (DUONEB) NEB ONE ×2 (23:25)
[2020-10-27 01:13] LABS: CK-MB VALUE MASS 3.6 NG/ML (<3.6); MB/CK RELATIVE INDEX 8.18 (< OR =4); TROPONIN I 0.04 NG/ML (< 0.10)
[2020-10-27] MEDS ORDERED: HOME MED LIST COMPLETE! XX SCH (02:35)
[2020-10-27] MEDS ORDERED: ALBUTEROL 90 MCG/ACT 8GM HFA INHALER INH PRN (03:05)
[2020-10-27] MEDS ORDERED: hydrOXYzine 10 MG TAB PO PRN (03:05)
[2020-10-27] MEDS ORDERED: ACETAMINOPHEN TAB 650MG DOSE (2X325MG) PO PRN (03:05)
[2020-10-27] MEDS ORDERED: DEXTROSE 50% 50 ML SYRINGE IV PRN (03:15)
[2020-10-27] MEDS ORDERED: GLUCOSE 4GM CHEW TABLET PO PRN (03:15)
[2020-10-27] MEDS ORDERED: GLUCAGON INJ 1MG VIAL SC PRN (03:15)
[2020-10-27] MEDS: LEVOTHYROXINE 75MCG TABLET (0.075MG) PO SCH (06:45)
[2020-10-27] MEDS: SYMBICORT 80/4.5MCG INHALER 6GM INH SCH ×2 (07:28→20:00)
[2020-10-27] MEDS: IPRATROPIUM 0.5MG/ALBUTEROL 2.5MG INH SOL UD 3ML (DUONEB) NEB SCH ×3 (07:29→20:00)
[2020-10-27] MEDS: HumaLOG INSULIN (NovoLOG) PER UNIT SC SCH ×5 (08:35→18:02)
[2020-10-27] MEDS: ENOXAPARIN 40MG/0.4ML SYRINGE (J1650 PER 10MG) SC SCH (09:00)
[2020-10-27 09:30] LABS: MEAN CORPUSCULAR HEMOGLOBIN 31.5 pg (27.0-33.0); MEAN CORPUSCULAR HGB CONC 32.1 g/dl (32.0-36.5); MEAN CORPUSCULAR VOLUME 97.9 fl (80.0-96.0); PLATELET COUNT, AUTOMATED 171 10^3/uL (150-450); RED BLOOD COUNT 2.86 10^6/uL (4.00-5.40)
[2020-10-27 09:59] LABS: CALCIUM LEVEL 8.7 MG/DL (8.8-10.2); CREATININE FOR GFR 1.38 MG/DL (0.55-1.30); GLOMERULAR FILTRATION RATE 39.7 (>39); TROPONIN I 0.02 NG/ML (< 0.10)
[2020-10-27] MEDS: predniSONE 20 MG TAB PO SCH (10:09)
[2020-10-27] MEDS: NICOTINE 21MG/24HR 1 EA TRANSDERMAL TD SCH (10:09)
[2020-10-27] MEDS: DULoxetine 30MG CAPSULE (CYMBALTA) PO SCH (10:09)
[2020-10-27] MEDS: CLOPIDOGREL 75 MG TAB PO SCH (10:10)
[2020-10-27] MEDS: **hydrALAZINE** 50 MG TAB PO SCH ×2 (10:17→18:01)
[2020-10-27] MEDS ORDERED: HumaLOG INSULIN (NovoLOG) PER UNIT SC ONE (10:25)
[2020-10-27 14:00] VITALS: BP 120/60
[2020-10-27] MEDS: LEVEMIR (INSULIN DETEMIR) 1 UNITS/0.01ML SC SCH (16:04)
[2020-10-27] MEDS ORDERED: HumaLOG INSULIN (NovoLOG) PER UNIT SC SCH (21:00)
[2020-10-27] MEDS ORDERED: ATORVASTATIN 20 MG TAB PO SCH (21:00)
[2020-10-27] MEDS ORDERED: AZITHROMYCIN 250MG TABLET PO ONE (21:00)
[2020-10-27] MEDS ORDERED: GABAPENTIN 100 MG CAP PO SCH (21:00)
[2020-10-27 21:49] VITALS: BP 118/57
[2020-10-28] MEDS: IPRATROPIUM 0.5MG/ALBUTEROL 2.5MG INH SOL UD 3ML (DUONEB) NEB SCH ×3 (02:00→13:15)
[2020-10-28 05:50] VITALS: BP 136/61
[2020-10-28] MEDS: LEVOTHYROXINE 75MCG TABLET (0.075MG) PO SCH (05:56)
[2020-10-28] MEDS: SYMBICORT 80/4.5MCG INHALER 6GM INH SCH (08:10)
[2020-10-28 08:36] LABS: HEMATOCRIT 26.3 % (36.0-47.0); HEMOGLOBIN 8.5 g/dl (12.0-15.5); MEAN CORPUSCULAR HEMOGLOBIN 31.4 pg (27.0-33.0); MEAN CORPUSCULAR HGB CONC 32.3 g/dl (32.0-36.5); PLATELET COUNT, AUTOMATED 171 10^3/uL (150-450); RED BLOOD COUNT 2.71 10^6/uL (4.00-5.40); WHITE BLOOD COUNT 9.3 10^3/uL (4.0-10.0)
[2020-10-28] MEDS: HumaLOG INSULIN (NovoLOG) PER UNIT SC SCH ×3 (08:40→12:31)
[2020-10-28] MEDS: NICOTINE 21MG/24HR 1 EA TRANSDERMAL TD SCH (08:50)
[2020-10-28] MEDS: DULoxetine 30MG CAPSULE (CYMBALTA) PO SCH (08:50)
[2020-10-28] MEDS: CLOPIDOGREL 75 MG TAB PO SCH (08:50)
[2020-10-28] MEDS: predniSONE 20 MG TAB PO SCH (08:51)
[2020-10-28] MEDS: ENOXAPARIN 40MG/0.4ML SYRINGE (J1650 PER 10MG) SC SCH (08:52)
[2020-10-28 08:55] VITALS: BP 96/62
[2020-10-28] MEDS: **hydrALAZINE** 50 MG TAB PO SCH ×2 (09:00→16:00)
[2020-10-28 09:05] LABS: BLOOD UREA NITROGEN 36 MG/DL (7-18); CALCIUM LEVEL 8.6 MG/DL (8.8-10.2); CARBON DIOXIDE LEVEL 27 MEQ/L (21-32); CHLORIDE LEVEL 108 MEQ/L (98-107); CREATININE FOR GFR 0.91 MG/DL (0.55-1.30); GLOMERULAR FILTRATION RATE > 60.0 (>39); GLUCOSE, FASTING 164 MG/DL (70-100); MAGNESIUM LEVEL 2.1 MG/DL (1.8-2.4); PHOSPHORUS LEVEL 3.5 MG/DL (2.5-4.9); POTASSIUM SERUM 4.2 MEQ/L (3.5-5.1); SODIUM LEVEL 141 MEQ/L (136-145)
[2020-10-28 09:44] VITALS: BP 108/52
[2020-10-28 14:00] VITALS: BP 177/76
[2020-10-28] MEDS: LEVEMIR (INSULIN DETEMIR) 1 UNITS/0.01ML SC SCH (15:00)
[2020-10-28 16:00] VITALS: BP 177/76
[2020-10-28] MEDS ORDERED: PRED10TA2 PO (16:28)
[2020-10-28] MEDS ORDERED: HumaLOG INSULIN (NovoLOG) PER UNIT SC SCH (17:30)
[2020-10-29] MEDS ORDERED: PRED10TA2 PO (23:24)
[2021-02-12] MEDS ORDERED: CEFD300C41 PO (10:47)
== END 2020-10-28 17:40 | disposition left against medical advice (07) | DRG 191 ==
LOC: M ED 21:40 → M ED INP 10-27 02:33 → ENRESERV 10-27 14:25 → M MS5PR 10-27 18:25
PROVIDERS: ADMIT Internal Medicine; ATTEND Internal Medicine
DX: J44.1 Chronic obstructive pulmonary disease with (acute) exacerbation (principal); J96.11 Chronic respiratory failure with hypoxia; I13.0 Hypertensive heart and chronic kidney disease with heart failure and stage 1 through stage 4 chronic kidney disease, or unspecified chronic kidney disease; D53.9 Nutritional anemia, unspecified; I16.0 Hypertensive urgency; E11.22 Type 2 diabetes mellitus with diabetic chronic kidney disease; E78.5 Hyperlipidemia, unspecified; E03.9 Hypothyroidism, unspecified; F41.9 Anxiety disorder, unspecified; F32.9 Major depressive disorder, single episode, unspecified; F17.200 Nicotine dependence, unspecified, uncomplicated; N18.30 Chronic kidney disease, stage 3 unspecified; E11.51 Type 2 diabetes mellitus with diabetic peripheral angiopathy without gangrene; I50.9 Heart failure, unspecified; R91.8 Other nonspecific abnormal finding of lung field; Z91.19 Patient's noncompliance with other medical treatment and regimen; Z98.41 Cataract extraction status, right eye; Z98.42 Cataract extraction status, left eye; Z95.820 Peripheral vascular angioplasty status with implants and grafts; Z99.81 Dependence on supplemental oxygen; Z20.822 Contact with and (suspected) exposure to COVID-19; Z79.4 Long term (current) use of insulin; Z79.899 Other long term (current) drug therapy; Z88.2 Allergy status to sulfonamides; Z88.8 Allergy status to other drugs, medicaments and biological substances; Z88.5 Allergy status to narcotic agent; Z91.048 Other nonmedicinal substance allergy status; Z91.14 Patient's other noncompliance with medication regimen

== ENCOUNTER 2020-10-29 18:56 | Inpatient (IN) | payer MEDICARE ==
[~2020-10-29] VITALS: Ht 157.5 cm; Wt 56.8 kg
[~2020-10-29 18:56] MED LIST changes: +CEFD1CAP8 PO; -CEFD300C41 PO; -DOXY-443 PO; +DOXY1CAP62 PO; +LISI-898 PO; -LISI5TAB11 PO; +OMEP-221 PO; -OMEP40CA5 PO
[2020-10-29] MEDS ORDERED: NS 500 ML IV ONE (19:30)
[2020-10-29] MEDS ORDERED: HumaLOG INSULIN (NovoLOG) PER UNIT SC STA (19:32)
[2020-10-29 20:16] LABS: BASO % 0.4 % (0.0-1.0); EOS # 0.1 10^3/uL (0.0-0.5); EOS % 0.8 % (0.0-3.0); HEMATOCRIT 27.8 % (36.0-47.0); HEMOGLOBIN 9.1 g/dl (12.0-15.5); LYMPH # 0.5 10^3/uL (1.5-5.0); LYMPH % 5.1 % (24.0-44.0); MEAN CORPUSCULAR HGB CONC 32.7 g/dl (32.0-36.5); MEAN CORPUSCULAR VOLUME 97.9 fl (80.0-96.0); MONO # 0.3 10^3/uL (0.0-0.8); MONO % 2.9 % (2.0-8.0); NEUTROPHILS # 8.7 10^3/uL (1.5-8.5); NEUTROPHILS % 89.8 % (36.0-66.0); PLATELET COUNT, AUTOMATED 172 10^3/uL (150-450); RED BLOOD COUNT 2.84 10^6/uL (4.00-5.40); WHITE BLOOD COUNT 9.7 10^3/uL (4.0-10.0)
[2020-10-29] MEDS: COMBIVENT RESPIMAT 100-20MCG INHALER 4GM INH SCH ×3 (20:33→21:35)
[2020-10-29 20:56] LABS: ALBUMIN 2.2 GM/DL (3.2-5.2); ALT/SGPT 28 U/L (12-78); BILIRUBIN,DIRECT < 0.1 MG/DL (0.0-0.2); BILIRUBIN,TOTAL 0.3 MG/DL (0.2-1.0); BLOOD UREA NITROGEN 33 MG/DL (7-18); CALCIUM LEVEL 7.8 MG/DL (8.8-10.2); CARBON DIOXIDE LEVEL 26 MEQ/L (21-32); CHLORIDE LEVEL 104 MEQ/L (98-107); CK-MB VALUE MASS 2.9 NG/ML (<3.6); CPK CREATINE PHOSPHOKINASE 47 U/L (26-192); CREATININE FOR GFR 1.23 MG/DL (0.55-1.30); GLOMERULAR FILTRATION RATE 45.3 (>39); GLUCOSE, FASTING 484 MG/DL (70-100); MB/CK RELATIVE INDEX 6.17 (< OR =4); NT-PRO BNP 7892 PG/ML (<450); POTASSIUM SERUM 5.7 MEQ/L (3.5-5.1); SODIUM LEVEL 137 MEQ/L (136-145); TOTAL PROTEIN 4.9 GM/DL (6.4-8.2); TROPONIN I 0.04 NG/ML (< 0.10)
[2020-10-29] MEDS ORDERED: GABAPENTIN 100 MG CAP PO SCH (21:00)
[2020-10-29] MEDS ORDERED: ATORVASTATIN 20 MG TAB PO SCH (21:00)
[2020-10-29 21:41] LABS: RSV AMPLIFICATION NEGATIVE (NEGATIVE)
[2020-10-29] MEDS ORDERED: ACETAMINOPHEN TAB 650MG DOSE (2X325MG) PO PRN (22:35)
[2020-10-29] MEDS ORDERED: HumaLOG INSULIN (NovoLOG) PER UNIT SC ONE (22:35)
[2020-10-29] MEDS ORDERED: LEVEMIR (INSULIN DETEMIR) 1 UNITS/0.01ML SC ONE (22:35)
[2020-10-29] MEDS ORDERED: LEVALBUTEROL 1.25 MG/0.5 ML CONCENTRATE NEB NEB PRN (22:35)
[2020-10-29] MEDS ORDERED: CALCIUM GLUCONATE 1,000 MG in D5W MINI-BAG PLUS 100 ML IV ONE (22:35)
[2020-10-29] MEDS ORDERED: SOD POLYSTYRENE SULFONATE SUSP 15 GM/60 ML UD PO ONE (22:35)
[2020-10-29] MEDS ORDERED: MOM 30ML SUSPENSION UDC PO PRN (22:35)
[2020-10-29] MEDS ORDERED: MAALOX 30 ML SUSP *UDC PO PRN (22:35)
[2020-10-29] MEDS ORDERED: GLUCOSE 4GM CHEW TABLET PO PRN (22:45)
[2020-10-29] MEDS ORDERED: GLUCAGON INJ 1MG VIAL SC PRN (22:45)
[2020-10-29] MEDS ORDERED: DEXTROSE 50% 50 ML SYRINGE IV PRN (22:45)
--- NOTE | 2020-10-29 22:47 | HPEPDOC ---
[facility] Medical History & Physical Date of Admission Oct 29, 2020 Date of Service: Oct 29, 2020 Attending Physician: AALIYAH KWAN MD History and Physical ADDENDUM: While awaiting placement for PCU bed, patient became agitated and stated that she wished to LEAVE AGAINST MEDICAL ADVICE. I saw patient at this time who stated that she knew the risks of leaving but felt as though nothing was being done for her here and simply wished to go home. Explained to patient that she would need to sign form stating her understanding and patient agreed. AMA form signed and filled out. Patient departed at approx 0400 at 10/30. CHIEF COMPLAINT: [75 y/o female c/o sob] HISTORY OF PRESENT ILLNESS: [This is a 75 y/o female who left our hospital yesterday 10/28 against medical advice while undergoing treatment for a copd exacerbation who has returned with continued shortness of breath. Patient states that she used her at home nebulizers but to no relief. Patient decided to report to the ED for further evaluation and breathing treatments. Patient complains of continued cough productive of yellow sputum. Patient still smoker. Patient denies chest pain, fevers, chills, syncope, abd pain, n/v/d/c, pedal virgen ma.] PAST MEDICAL HISTORY: 1. Chronic back pain 2. L4 compression 3. Spinal stenosis 4. Peripheral vascular disease s/p right LE angioplasty with stenting 5. Stage 3 CKD 6. Bladder cancer 7. Severe COPD/emphysema 8. Dyslipidemia 9. Insulin-dependent diabetes mellitus 10. Hypothyroidism 11. Hypertension 12. CHF 13. Right upper lobe lung mass 14. Anxiety/depression PAST SURGICAL HISTORY: 1. Hysterectomy 2. Vaginal tumor removal 3. Bilateral leg stents 4. Lung mass removed 5. Bilateral cataract surgery SOCIAL HISTORY: Tobacco use:[1/2 ppd smoker] ETOH: [Denies] Illicit drug use: [Denies] FAMILY HISTORY: Reviewed - none pertinent ALLERGIES: Please see below. REVIEW OF SYSTEMS: CONSTITUTIONAL: [Denies fevers, chills]. HEENT: [Denies uri sx]. CARDIOVASCULAR: [Denies chest pain, palpitations]. RESPIRATORY: [See HPI]. GASTROINTESTINAL: [Denies abd pain, n/v/d/c]. GENITOURINARY: [Denies dysuria]. SKIN: [Denies rash]. MUSCULOSKELETAL: [Denies acute joint/back pain]. NEUROLOGICAL: [Deneis syncope, paresthesias]. ENDOCRINE: [Hx of DM]. HEMATOLOGIC/LYMPHATIC: [Denies hx of vte]. HOME MEDICATIONS: Please see below. PHYSICAL EXAMINATION: VITAL SIGNS: Please see below. GENERAL APPEARANCE: [Chronically ill appearing 75 y/o female who is alert and oriented to all questioning. She does not appear to be in any distress]. HEENT: [No mass or lesion EOMI. No scleral icterus. Nares patent. oral mucosa moist]. CARDIOVASCULAR: [Regular rate, rhythm. No murmurs, rubs, gallops]. LUNGS: [Decreased air flow with coarse breath sounds. No explicit wheezing, rales, rhonchi]. ABDOMEN: [Soft, nontender]. MUSCULOSKELETAL: [No joint deformity noted]. EXTREMITIES: [No pedal edema appreciated. Pulses intact. No overlying skin changes]. NEUROLOGICAL: [Speech clear. A+Ox3. No focal deficits]. PSYCHIATRIC: [Mood and affect appear appropriate]. LABORATORY DATA: See below. IMAGING: [CXR: ] MICROBIOLOGY: Please see below. ASSESSMENT: [This is a 75 y/o female who presents to the ED on 10/29 after having left our hospital yesterday 10/28 against medical advice while undergoing treatment for a copd exacerbation. She has returned with continued shortness of breath.]. . PLAN: 1. [COPD Exacerbation - Patient currently saturating well on chronic 4L o2 - Will continue supplemental o2 and titrate as needed to maintain 88-92% - Duonebs scheduled q6, xopenex prn q3 - oral prednisone to begin in the morning - procalcitonin ordered to r/o infection as cause of exacerbation, however suspicion is low without any sirs criteria - continue home inhalers - continuous pulse oximetry - admit to pcu for tx 2. Hyperkalemia - Patients potassium acutely elevated to 5.7 - Will give calcium gluconate, kayaxelate, and patient will be receiving insulin and albuterol for her comorbid issues - place on telemetry - repeat k 3. Poorly controlled DM - patients glucose on presentation 484, lowered with iv insulin in the ED - 2/2 steroid use, noncompliance - will place on sliding scale with basal insulin - hypoglycemic protocol - continue gabapentin 4. CHF - patient has elevated bnp of 7892, however is not clinically fluid overloaded 5. HTN - continue lisinopril, amlodipine, hydralazine 6. Hypothyroidism - continue synthroid 7. Anxiety/depression - continue hydroxyzine, duloxetine 8. HLD - continue atorvastatin 9. Peripheral vascular dz - continue plavix 10. CKD3 - cr at baseline - monitor DVT prophylaxis - lovenox]. Vital Signs Vital Signs Date Time Temp Pulse Resp B/P (MAP) Pulse Ox O2 Delivery O2 Flow Rate FiO2 10/29/20 22:16 89 16 98 Nasal Cannula 4.0 10/29/20 22:15 189/83 (118) 10/29/20 19:13 97.5 Laboratory Data Labs 24H Laboratory Tests 2 10/29/20 19:22: Bedside Glucose (Misc Panel) 481H 10/29/20 19:58: Immature Granulocyte % (Auto) 1.0, Neutrophils (%) (Auto) 89.8H, Lymphocytes (%) (Auto) 5.1L, Monocytes (%) (Auto) 2.9, Eosinophils (%) (Auto) 0.8, Basophils (%) (Auto) 0.4, Neutrophils # (Auto) 8.7H, Lymphocytes # (Auto) 0.5L, Monocytes # (Auto) 0.3, Eosinophils # (Auto) 0.1, Basophils # (Auto) 0.0, Nucleated Red Blood Cells % (auto) 0.0, Anion Gap 7L, Glomerular Filtration Rate 45.3, Calcium Level 7.8L, Total Bilirubin 0.3, Direct Bilirubin < 0.1, Aspartate Amino Transf (AST/SGOT) 20, Alanine Aminotransferase (ALT/SGPT) 28, Alkaline Phosphatase 91, Total Creatine Kinase 47, Creatine Kinase MB 2.9, Creatine Kinase MB Relative Index 6.17H, Troponin I 0.04, WH-Bif-R-Type Natriuretic Peptide 7892H, Total Protein 4.9L, Albumin 2.2L, Albumin/Globulin Ratio 0.8L, Thyroid Stimulating Hormone (TSH) 2.120, Coronavirus (COVID-19)(PCR) NEGATIVE, Influenza Type A (RT- PCR) NEGATIVE, Influenza Type B (RT-PCR) NEGATIVE, Respiratory Syncytial Virus (PCR) NEGATIVE 10/29/20 20:25: Bedside Glucose (Misc Panel) 421H 10/29/20 21:25: Bedside Glucose (Misc Panel) 379H 10/29/20 22:34: Bedside Glucose (Misc Panel) 304H CBC/BMP Laboratory Tests 10/29/20 19:58 Microbiology Microbiology 10/29/20 Blood Culture, Received Pending 10/29/20 Blood Culture, Received Pending Home Medications Scheduled Amlodipine Besylate (Amlodipine Besylate) 10 Mg Tablet, 10 MG PO QPM TAKES AT 1700 Atorvastatin Calcium (Atorvastatin Calcium) 40 Mg Tablet, 40 MG PO QHS Clopidogrel Bisulfate (Plavix) 75 Mg Tablet, 75 MG PO DAILY Duloxetine Hcl (Duloxetine HCl) 60 Mg Capsule.dr, 60 MG PO DAILY Fluticasone/Vilanterol (Breo Ellipta 200-25 Mcg INH) 1 Each Blst.w.dev, 1 PUFF INH DAILY Gabapentin (Gabapentin) 100 Mg Capsule, 100 MG PO QHS Hydralazine HCl (Hydralazine HCl) 50 Mg Tablet, 50 MG PO BID 0800, 1700 Insulin Detemir (Levemir) 100 Unit/1 Ml Vial, 20 UNITS SC DAILY TAKES AT 1500 Levothyroxine Sodium (Synthroid) 75 Mcg Tablet, 75 MCG PO DAILY Lisinopril (Lisinopril) 20 Mg Tablet, 20 MG PO BID 0800, 1700 Metformin HCl (Metformin HCl) 500 Mg Tablet, 500 MG PO BID 0800, 1700 Prednisone (Prednisone) 10 Mg Tablet, 10 MG PO TAPER Take 4 tabs daily x 3 days, then 3 tabs daily x 3 days, then 2 tabs daily x 3 days, then 1 tab daily x 3 days and stop Scheduled PRN Albuterol Sulfate (Proair Hfa) 8.5 Gm Hfa.aer.ad, 2 PUFF INH QID PRN for SHORTNESS OF BREATH Hydroxyzine HCl (Hydroxyzine HCl) 10 Mg Tablet, 10 MG PO Q8H PRN for ANXIETY Miscellaneous Medications [Patient Comment] MED REC COMPLETED VIA PREVIOUS DISCHARGE PAPERWORK (10/28/20) Allergies Coded Allergies: Sulfa (Sulfonamide Antibiotics) (Verified Allergy, Mild, RASH, 10/07/20) bacitracin (Verified Allergy, Mild, RASH, 10/07/20) cortisone (Verified Allergy, Mild, RASH, 10/07/20) neomycin (Verified Allergy, Mild, RASH, 10/07/20) polymyxin B (Verified Allergy, Mild, RASH, 10/07/20) red dye (Unverified Allergy, Mild, rash OCCURRED ONCE WITH CAPSULE MED NO OTHER PROBLEMS WIT, 10/07/20) fluoxetine (Unverified Allergy, Unknown, 10/07/20) tramadol (Unverified Allergy, Unknown, 10/07/20) HAS HAD OXYCODONE BEFORE WITHOUT ISSUE A-FIB/CHADSVASC A-FIB History Current/History of A-Fib/PAF?: No OTONIEL MEDLEY Oct 29, 2020 22:47
[2020-10-29] MEDS ORDERED: PRED10TA2 PO (23:24)
[2020-10-29] MEDS ORDERED: HOME MED LIST COMPLETE! XX SCH (23:25)
[2020-10-29] MEDS ORDERED: hydrOXYzine 10 MG TAB PO PRN (23:40)
[2020-10-30 01:58] LABS: INR 0.93; PROTHROMBIN TIME 12.9 SECONDS (12.7-14.5)
[2020-10-30 01:59] LABS: PARTIAL THROMBOPLASTIN TIME 27.7 SECONDS (25.9-37.0)
[2020-10-30] MEDS ORDERED: IPRATROPIUM 0.5MG/ALBUTEROL 2.5MG INH SOL UD 3ML (DUONEB) NEB SCH (02:00)
[2020-10-30 03:45] VITALS: BP 206/91
[2020-10-30] MEDS ORDERED: LEVOTHYROXINE 75MCG TABLET (0.075MG) PO SCH (06:00)
[2020-10-30] MEDS ORDERED: HumaLOG INSULIN (NovoLOG) PER UNIT SC SCH ×2 (07:30→21:00)
[2020-10-30] MEDS ORDERED: FLUTICASONE HFA 220 MCG 12 GM INHALER (FLOVENT) INH SCH (08:00)
[2020-10-30] MEDS ORDERED: **hydrALAZINE** 50 MG TAB PO SCH ×2 (08:00→12:00)
--- NOTE | 2020-10-30 08:37 | REP ---
INDICATION: DYSPNEA/COUGH. COMPARISON: 10/26/2020 as well as other prior exams. TECHNIQUE: Single portable AP view of the chest was performed. FINDINGS: Focal pleural thickening in the right upper hemithorax is essentially stable. Adjacent interstitial fibrotic change also appears stable. There is some added streaky density in the right lung base which may represent mild atelectasis or infiltrate. Left lung remains clear. Heart is normal in size. There is calcification of the thoracic aorta. The mediastinal silhouette is unchanged. IMPRESSION: Stable chronic changes of superior right hemithorax. Mild atelectasis/infiltrate right lung base. <Electronically signed by Boy Barrios > 10/30/20 [id number]
[2020-10-30] MEDS ORDERED: CLOPIDOGREL 75 MG TAB PO SCH (09:00)
[2020-10-30] MEDS ORDERED: DOCUSATE SODIUM 100MG CAPSULE PO SCH (09:00)
[2020-10-30] MEDS ORDERED: predniSONE 20 MG TAB PO SCH (09:00)
[2020-10-30] MEDS ORDERED: DULoxetine 30MG CAPSULE (CYMBALTA) PO SCH (09:00)
[2020-10-30] MEDS ORDERED: ENOXAPARIN 30MG/0.3ML SYRINGE (J1650 PER 10MG) SC SCH (09:00)
[2020-10-30] MEDS ORDERED: NICOTINE 21MG/24HR 1 EA TRANSDERMAL TD SCH (09:00)
[2020-10-30] MEDS ORDERED: LABETALOL 100MG/20ML VIAL IV ONE (13:55)
[2020-10-30] MEDS ORDERED: LABETALOL 100MG TAB PO SCH (14:00)
[2020-10-30] MEDS ORDERED: LEVEMIR (INSULIN DETEMIR) 1 UNITS/0.01ML SC SCH (15:00)
--- NOTE | 2020-10-31 13:44 | ECGEPIP ---
[facility] - ED Test Date: 2020-10-29 Pat Name: ELA LIVINGSTON Department: Room: 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
== END 2020-10-30 04:11 | disposition left against medical advice (07) | DRG 191 ==
LOC: M ED 18:56 → M ED INP 18:57
PROVIDERS: ADMIT Internal Medicine; ATTEND Internal Medicine
DX: J44.1 Chronic obstructive pulmonary disease with (acute) exacerbation (principal); I13.0 Hypertensive heart and chronic kidney disease with heart failure and stage 1 through stage 4 chronic kidney disease, or unspecified chronic kidney disease; E87.5 Hyperkalemia; E11.65 Type 2 diabetes mellitus with hyperglycemia; I50.9 Heart failure, unspecified; E03.9 Hypothyroidism, unspecified; F41.9 Anxiety disorder, unspecified; F32.9 Major depressive disorder, single episode, unspecified; E78.5 Hyperlipidemia, unspecified; E11.51 Type 2 diabetes mellitus with diabetic peripheral angiopathy without gangrene; N18.30 Chronic kidney disease, stage 3 unspecified; E11.22 Type 2 diabetes mellitus with diabetic chronic kidney disease; Z95.820 Peripheral vascular angioplasty status with implants and grafts; Z85.51 Personal history of malignant neoplasm of bladder; R91.8 Other nonspecific abnormal finding of lung field; Z98.41 Cataract extraction status, right eye; Z98.42 Cataract extraction status, left eye; Z20.822 Contact with and (suspected) exposure to COVID-19; Z79.4 Long term (current) use of insulin; Z79.899 Other long term (current) drug therapy; Z79.02 Long term (current) use of antithrombotics/antiplatelets; Z88.1 Allergy status to other antibiotic agents; Z88.2 Allergy status to sulfonamides; Z88.8 Allergy status to other drugs, medicaments and biological substances; Z88.5 Allergy status to narcotic agent; Z91.048 Other nonmedicinal substance allergy status

== ENCOUNTER 2020-11-05 17:44 | Observation (INO) | payer MEDICARE ==
[~2020-11-05] VITALS: Ht 157.5 cm; Wt 56.8 kg
[2020-11-05] MEDS: COMBIVENT RESPIMAT 100-20MCG INHALER 4GM INH SCH ×3 (19:45→20:25)
[2020-11-05] MEDS ORDERED: NORCO, ANEXSIA 5/325MG TABLET (HYDROcodone/ACETAMINOPHEN) PO ONE (20:00)
[2020-11-05 20:43] LABS: BASO # 0.1 10^3/uL (0.0-0.2); BASO % 0.5 % (0.0-1.0); EOS # 0.2 10^3/uL (0.0-0.5); EOS % 1.2 % (0.0-3.0); HEMATOCRIT 31.2 % (36.0-47.0); LYMPH # 0.6 10^3/uL (1.5-5.0); LYMPH % 4.8 % (24.0-44.0); MEAN CORPUSCULAR HEMOGLOBIN 31.3 pg (27.0-33.0); MEAN CORPUSCULAR HGB CONC 32.1 g/dl (32.0-36.5); MEAN CORPUSCULAR VOLUME 97.8 fl (80.0-96.0); MONO # 0.2 10^3/uL (0.0-0.8); MONO % 1.4 % (2.0-8.0); NEUTROPHILS # 11.7 10^3/uL (1.5-8.5); NEUTROPHILS % 91.6 % (36.0-66.0); PLATELET COUNT, AUTOMATED 210 10^3/uL (150-450); RED BLOOD COUNT 3.19 10^6/uL (4.00-5.40); WHITE BLOOD COUNT 12.8 10^3/uL (4.0-10.0)
[2020-11-05] MEDS ORDERED: HumaLOG INSULIN (NovoLOG) PER UNIT SC SCH (21:00)
[2020-11-05 21:29] LABS: ALBUMIN 2.3 GM/DL (3.2-5.2); ALT/SGPT 23 U/L (12-78); BILIRUBIN,DIRECT < 0.1 MG/DL (0.0-0.2); BILIRUBIN,TOTAL 0.3 MG/DL (0.2-1.0); BLOOD UREA NITROGEN 20 MG/DL (7-18); CALCIUM LEVEL 8.2 MG/DL (8.8-10.2); CARBON DIOXIDE LEVEL 26 MEQ/L (21-32); CHLORIDE LEVEL 107 MEQ/L (98-107); CK-MB VALUE MASS 4.2 NG/ML (<3.6); CPK CREATINE PHOSPHOKINASE 71 U/L (26-192); GLOMERULAR FILTRATION RATE 57.5 (>39); GLUCOSE, FASTING 238 MG/DL (70-100); MB/CK RELATIVE INDEX 5.92 (< OR =4); NT-PRO BNP 5400 PG/ML (<450); POTASSIUM SERUM 4.6 MEQ/L (3.5-5.1); SODIUM LEVEL 140 MEQ/L (136-145); TOTAL PROTEIN 5.1 GM/DL (6.4-8.2); TROPONIN I 0.04 NG/ML (< 0.10)
[2020-11-05 21:32] LABS: RSV AMPLIFICATION NEGATIVE (NEGATIVE)
--- NOTE | 2020-11-05 22:31 | REPVR ---
PROCEDURE INFORMATION: Exam: XR Chest Exam date and time: 11/05/20 (7:51pm) Age: 75 years old Clinical indication: Cough and dyspnea TECHNIQUE: Imaging protocol: Portable CXR Views: 1 view COMPARISON: Portable CXR's of 10/29/20, 10/26/20, and 10/18/20 Chest films of 09/22/20 FINDINGS: Comparison is made with multiple CXR's done during the past 6 weeks. Stable heart size. Chronic pleural and parenchymal disease laterally in the RUL area (similar appearance over the past 6 weeks). Uncoiled thoracic aorta, with atherosclerotic calcifications. Calcifications at the aortic knob. Mild nonspecific streaky parenchymal changes at the right costophrenic angle region (not present on 10/26/20; similar appearance on 10/18/20). The left lung remains essentially clear. IMPRESSION: Possible mild acute interstitial pneumonitis laterally at the right lung base (not present on 10/26/20; similar appearance on 10/18/20). Chronic pleural and parenchymal disease laterally in the RUL area. The left lung remains essentially clear. Electronically signed by: Yeny Donahue On 11/05/2020 22:31:10 PM
[2020-11-05] MEDS ORDERED: DEXTROSE 50% 50 ML SYRINGE IV PRN (23:30)
[2020-11-05] MEDS ORDERED: GLUCAGON INJ 1MG VIAL SC PRN (23:30)
[2020-11-05] MEDS ORDERED: HOME MED LIST COMPLETE! XX SCH (23:30)
[2020-11-05] MEDS ORDERED: guaiFENesin ER 600 MG TAB PO PRN (23:30)
[2020-11-05] MEDS ORDERED: ACETAMINOPHEN TAB 650MG DOSE (2X325MG) PO PRN (23:30)
[2020-11-05] MEDS ORDERED: GLUCOSE 4GM CHEW TABLET PO PRN (23:30)
[2020-11-05] MEDS ORDERED: hydrOXYzine 10 MG TAB PO PRN (23:40)
[2020-11-06] MEDS ORDERED: LevoFLOXacin IV 750 MG in IV 1 EA IV SCH ×2
[2020-11-06] MEDS ORDERED: predniSONE 20 MG TAB PO SCH (00:55)
[2020-11-06] MEDS ORDERED: LEVALBUTEROL 1.25 MG/0.5 ML CONCENTRATE NEB NEB SCH (02:00)
[2020-11-06] MEDS ORDERED: IPRATROPIUM 0.02% SOLN 0.5MG 2.5ML NEB NEB SCH (02:00)
[2020-11-06 02:30] VITALS: BP 134/62
--- NOTE | 2020-11-06 03:02 | HPEPDOC ---
General Date of Admission Nov 05, 2020 at 23:38 Date of Service: Nov 05, 2020 Chief Complaint The patient is a 75-year-old female admitted with a reason for visit of Bilateral Pulmonary Embolism. Source: Patient History of Present Illness Lula Ponce is a 75 y/o female well-known to service who was recently admitted for COPD exacerbation and left 10/28 against medical advice while undergoing treatment for a copd exacerbation. Patient returns today with continued shortness of breath. Patient with irritable affect which limits some of HPI. Patient reports that she "has not been able to sleep" due to her cough and shortness of breath. She reports that she has had a productive cough yellow sputum denies fever chills; denies chest pain, lower extremity edema or GI complaints. Patient reports compliance with her home medications she reports that her blood sugars "have been bad". States that she used her at home nebulizers without relief. Patient still smoker. Patient with audible wheezing upon presentation to ED but tolerating home chronic O2 4 L nasal cannula 92% Of note, chest x-ray with right middle lobe possible acute pneumonitis. Initial lab work reveals leukocytosis. Lactic 0.8. Blood glucose 235. ABG pend. Patient will be admitted for further evaluation management of presenting concerns. Home Medications Scheduled Amlodipine Besylate (Amlodipine Besylate) 10 Mg Tablet, 10 MG PO QPM, (Reported) TAKES AT 1700 Atorvastatin Calcium (Atorvastatin Calcium) 40 Mg Tablet, 40 MG PO QHS, (Reported) Clopidogrel Bisulfate (Plavix) 75 Mg Tablet, 75 MG PO DAILY, (Reported) Duloxetine Hcl (Duloxetine HCl) 60 Mg Capsule.dr, 60 MG PO DAILY, (Reported) Fluticasone/Vilanterol (Breo Ellipta 200-25 Mcg INH) 1 Each Blst.w.dev, 1 PUFF INH DAILY, (Reported) Gabapentin (Gabapentin) 100 Mg Capsule, 100 MG PO QHS, (Reported) Hydralazine HCl (Hydralazine HCl) 50 Mg Tablet, 50 MG PO BID, (Reported) 0800, 1700 Insulin Detemir (Levemir) 100 Unit/1 Ml Vial, 20 UNITS SC DAILY, (Reported) TAKES AT 1500 Levothyroxine Sodium (Synthroid) 75 Mcg Tablet, 75 MCG PO DAILY, (Reported) Lisinopril (Lisinopril) 20 Mg Tablet, 20 MG PO BID, (Reported) 0800, 1700 Metformin HCl (Metformin HCl) 500 Mg Tablet, 500 MG PO BID, (Reported) 0800, 1700 Prednisone (Prednisone) 10 Mg Tablet, 10 MG PO TAPER, (Reported) Take 4 tabs daily x 3 days, then 3 tabs daily x 3 days, then 2 tabs daily x 3 days, then 1 tab daily x 3 days and stop Scheduled PRN Albuterol Sulfate (Proair Hfa) 8.5 Gm Hfa.aer.ad, 2 PUFF INH QID PRN for SHORTNESS OF BREATH, (Reported) Hydroxyzine HCl (Hydroxyzine HCl) 10 Mg Tablet, 10 MG PO Q8H PRN for ANXIETY, (Reported) Miscellaneous Medications [Patient Comment] , (Reported) MED REC COMPLETED VIA PREVIOUS DISCHARGE PAPERWORK (10/28/20) Allergies Coded Allergies: Sulfa (Sulfonamide Antibiotics) (Verified Allergy, Mild, RASH, 10/07/20) bacitracin (Verified Allergy, Mild, RASH, 10/07/20) cortisone (Verified Allergy, Mild, RASH, 10/07/20) neomycin (Verified Allergy, Mild, RASH, 10/07/20) polymyxin B (Verified Allergy, Mild, RASH, 10/07/20) red dye (Unverified Allergy, Mild, rash OCCURRED ONCE WITH CAPSULE MED NO OTHER PROBLEMS WIT, 10/07/20) fluoxetine (Unverified Allergy, Unknown, 10/07/20) tramadol (Unverified Allergy, Unknown, 10/07/20) HAS HAD OXYCODONE BEFORE WITHOUT ISSUE Past Medical History Medical History 1. Chronic back pain 2. L4 compression 3. Spinal stenosis 4. Peripheral vascular disease s/p right LE angioplasty with stenting 5. Stage 3 CKD 6. Bladder cancer 7. Severe COPD/emphysema 8. Dyslipidemia 9. Insulin-dependent diabetes mellitus 10. Hypothyroidism 11. Hypertension 12. CHF 13. Right upper lobe lung mass 14. Anxiety/depression Surgical History 1. Hysterectomy 2. Vaginal tumor removal 3. Bilateral leg stents 4. Lung mass removed 5. Bilateral cataract surgery Family History Significant Family History: No pertinent family hx Social History * Smoker: current smoker Alcohol: Denies Drugs: denies Recent Travel/Sick Contacts: Denies: Recent travel, Recent sick contacts Psychosocial History: Anxiety Patient reports he lives alone at home. A-FIB/CHADSVASC A-FIB History Current/History of A-Fib/PAF?: No Current PO Anticoag Therapy: No Review of Systems Constitutional: Reports: Weakness, Fatigue; Denies: Chills, Fever, Night Sweats Eyes: Denies: Pain, Vision change ENT: Denies: Head Aches, Ear Pain, Dysphagia Skin: Denies: Rash, Lesions, Breakdown Pulmonary: Reports: Dyspnea, Cough Cardiovascular: Denies: Chest Pain, Palpitations, Orthopnea, Paroxysmal Noc. Dyspnea, Lt Headedness Gastrointestinal: Denies: Nausea, Vomiting, Abdominal Pain, Diarrhea Genitourinary: Denies: Dysuria, Frequency, Incontinence, Retention Hematologic: Denies: Bruising, Bleeding Excessively Musculoskeletal: Denies: Neck Pain, Back Pain, Joint Pain, Muscle Pain, Spasms Neurological: Denies: Weakness, Numbness, Change in speech, Confusion Psych: Reports: Mood Normal, Anxiety; Denies: Depression, Memory Issues Physical Examination General Exam: Positive: Alert, No Acute Distress Eye Exam: Positive: PERRLA, Conjunctiva & lids normal, EOMI; Negative: Sclera icteric ENT Exam: Positive: Atraumatic, Mucous membr. moist/pink, Pharynx Normal Neck Exam: Positive: Supple; Negative: JVD, thyromegaly Chest Exam: Positive: Rhonchi Heart Exam: Positive: Rate Normal, Regular Rhythm, Normal S1, Normal S2; Negative: Murmurs, Rubs Telemetry: Positive: No significant arrhythmia Abdomen Exam: Positive: Normal bowel sounds, Soft; Negative: Tenderness, Hepatospenomegaly Extremity Exam: Positive: Normal pulses; Negative: Clubbing, Cyanosis, Edema Skin Exam: Positive: Nl turgor and temperature; Negative: Breakdown, Lesion Neuro Exam: Positive: Normal Gait, Normal Speech, Cranial Nerves 3-12 NL, Reflexes 2+ Psych Exam: Positive: Mental status NL, Mood NL, Oriented x 3 Vital Signs Vital Signs Date Time Temp Pulse Resp B/P (MAP) Pulse Ox O2 Delivery O2 Flow Rate FiO2 11/05/20 23:02 88 99 11/05/20 23:00 127/62 (83) 11/05/20 22:15 Nasal Cannula 4.0 11/05/20 21:30 16 11/05/20 17:56 98.8 Laboratory Data Labs 24H Laboratory Tests 2 11/05/20 20:28: Immature Granulocyte % (Auto) 0.5, Neutrophils (%) (Auto) 91.6H, Lymphocytes (%) (Auto) 4.8L, Monocytes (%) (Auto) 1.4L, Eosinophils (%) (Auto) 1.2, Basophils (%) (Auto) 0.5, Neutrophils # (Auto) 11.7H, Lymphocytes # (Auto) 0.6L, Monocytes # (Auto) 0.2, Eosinophils # (Auto) 0.2, Basophils # (Auto) 0.1, Nucleated Red Blood Cells % (auto) 0.0, Anion Gap 7L, Glomerular Filtration Rate 57.5, Lactic Acid Level 0.8, Calcium Level 8.2L, Total Bilirubin 0.3, Direct Bilirubin < 0.1, Aspartate Amino Transf (AST/SGOT) 21, Alanine Aminotransferase (ALT/SGPT) 23, Alkaline Phosphatase 82, Total Creatine Kinase 71, Creatine Kinase MB 4.2H, Creatine Kinase MB Relative Index 5.92H, Troponin I 0.04, ZX-Luk-S-Type Natriuretic Peptide 5400H, Total Protein 5.1L, Albumin 2.3L, Albumin/Globulin Ratio 0.8L, Coronavirus (COVID-19)(PCR) NEGATIVE, Influenza Type A (RT-PCR) NEGATIVE, Influenza Type B (RT-PCR) NEGATIVE, Respiratory Syncytial Virus (PCR) NEGATIVE CBC/BMP Laboratory Tests 11/05/20 20:28 Assessment/Plan 1. Mild COPD Exacerbation: Patient currently saturating well on chronic 4L o2, she reports increased productive cough, yellow sputum -Telemetry and continuous pulse -Antitussives and mucolytic's -Pulmonary toilet -Acapella -Will continue supplemental o2 and titrate as needed to maintain 88-92% -Xopenex/ atrovent q6h -oral prednisone to begin in the morning -A.m. lab -Chest x-ray with possible pneumonitis right lung base not seen on previous x- ray but equivalent to x-ray prior to that on October 18. Will cover empirically check procalcitonin and consider deescalation. 3. Poorly controlled DM in setting of steroid use -Monitor patient blood glucose ACHS. -Sliding scale insulin and continue home long-acting. -A.m. labs. - hypoglycemic protocol - continue gabapentin 4. CHF - patient has elevated bnp of 5400 which is less than previous admission. Does not appear hypervolemic. -Daily weight 5. HTN - continue lisinopril, amlodipine, hydralazine 6. Hypothyroidism - continue synthroid 7. Anxiety/depression - continue hydroxyzine, duloxetine 8. HLD - continue atorvastatin 9. Peripheral vascular dz - continue plavix 10. CKD3, stable -Monitor fluid balance, I's and O's, urinary output -Encourage PO -Avoid nephrotoxins as able -A.m. labs 11. 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 PT eval therapeutic purposes. Consider home therapy. DVT prophylaxis: Heparin subcu CODE STATUS: Full code Disposition: Home once clinically stable. Patient appears deconditioned compar ed to previous admissions. May benefit from home health Plan / VTE VTE Prophylaxis Ordered?: Yes AMA MARTIN NP Nov 06, 2020 01:12
--- NOTE | 2020-11-06 03:54 | IPNPDOC ---
Text Note Date of Service The patient was seen on 11/06/20. NOTE Notified patient decided to leave AMA despite recommendations to stay. Patient has a significant history of leaving AMA in the past. She has had multiple hospital admissions in the past 3 months- all from which she has left AMA. She has a significantly high likelihood of returning to hospital as she has deconditioning as noted in H&P and understandably, she is high risk for decompensation as she has not had full course of treatment to completion in order to return to baseline these past admissions. Patient has poor prognosis. VS,Fishbone, I+O VS, Fishbone, I+O Laboratory Tests 11/05/20 20:28 Vital Signs Date Time Temp Pulse Resp B/P (MAP) Pulse Ox O2 Delivery O2 Flow Rate FiO2 11/06/20 03:17 88 97 11/06/20 02:30 134/62 (86) Nasal Cannula 4.0 11/05/20 21:30 16 11/05/20 17:56 98.8 AMA MARTIN NP Nov 06, 2020 03:54
[2020-11-06] MEDS ORDERED: HEPARIN SOD (PORCINE) 5000UNITS/ML 1ML VIAL/SYRINGE SQ SCH (06:00)
--- NOTE | 2020-11-06 06:00 | ECGEPIP ---
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
[2020-11-06] MEDS ORDERED: HumaLOG INSULIN (NovoLOG) PER UNIT SC SCH (07:30)
[2020-11-06] MEDS ORDERED: **hydrALAZINE** 50 MG TAB PO SCH (08:00)
[2020-11-06] MEDS ORDERED: metFORMIN (GLUCOPHAGE) 500MG TAB PO SCH (08:00)
[2020-11-06] MEDS ORDERED: DULoxetine 30MG CAPSULE (CYMBALTA) PO SCH (09:00)
[2020-11-06] MEDS ORDERED: LEVOTHYROXINE 75MCG TABLET (0.075MG) PO SCH (09:00)
[2020-11-06] MEDS ORDERED: CLOPIDOGREL 75 MG TAB PO SCH (09:00)
[2020-11-06] MEDS ORDERED: LEVEMIR (INSULIN DETEMIR) 1 UNITS/0.01ML SC SCH (15:00)
[2020-11-06] MEDS ORDERED: GABAPENTIN 100 MG CAP PO SCH (21:00)
[2020-11-06] MEDS ORDERED: ATORVASTATIN 20 MG TAB PO SCH (21:00)
== END 2020-11-06 03:58 | disposition left against medical advice (07) ==
LOC: M ED 17:44 → M ED INP 23:38 → INTOOBSV 23:38
PROVIDERS: ADMIT Family Medicine; ATTEND Family Medicine
DX: J44.1 Chronic obstructive pulmonary disease with (acute) exacerbation (principal); R91.8 Other nonspecific abnormal finding of lung field; E11.65 Type 2 diabetes mellitus with hyperglycemia; Z79.52 Long term (current) use of systemic steroids; I50.9 Heart failure, unspecified; I13.0 Hypertensive heart and chronic kidney disease with heart failure and stage 1 through stage 4 chronic kidney disease, or unspecified chronic kidney disease; E11.22 Type 2 diabetes mellitus with diabetic chronic kidney disease; E03.9 Hypothyroidism, unspecified; F41.9 Anxiety disorder, unspecified; F32.9 Major depressive disorder, single episode, unspecified; E78.5 Hyperlipidemia, unspecified; I73.9 Peripheral vascular disease, unspecified; N18.30 Chronic kidney disease, stage 3 unspecified; R06.02 Shortness of breath; F17.210 Nicotine dependence, cigarettes, uncomplicated; Z79.899 Other long term (current) drug therapy; Z79.02 Long term (current) use of antithrombotics/antiplatelets; Z79.4 Long term (current) use of insulin; Z88.2 Allergy status to sulfonamides; Z88.1 Allergy status to other antibiotic agents; Z88.8 Allergy status to other drugs, medicaments and biological substances; Z88.5 Allergy status to narcotic agent; Z91.19 Patient's noncompliance with other medical treatment and regimen

== ENCOUNTER 2020-11-06 14:40 | Emergency (ER) | payer MEDICARE ==
[~2020-11-06] VITALS: Ht 157.5 cm; Wt 56.8 kg
[2020-11-06 15:02] VITALS: BP 183/84
[2020-11-06 16:46] LABS: ALBUMIN 2.7 GM/DL (3.2-5.2); ALT/SGPT 23 U/L (12-78); BILIRUBIN,DIRECT < 0.1 MG/DL (0.0-0.2); BILIRUBIN,TOTAL 0.3 MG/DL (0.2-1.0); BLOOD UREA NITROGEN 37 MG/DL (7-18); CALCIUM LEVEL 8.9 MG/DL (8.8-10.2); CARBON DIOXIDE LEVEL 22 MEQ/L (21-32); CHLORIDE LEVEL 99 MEQ/L (98-107); CK-MB VALUE MASS 5.6 NG/ML (<3.6); CPK CREATINE PHOSPHOKINASE 95 U/L (26-192); CREATININE FOR GFR 1.63 MG/DL (0.55-1.30); GLOMERULAR FILTRATION RATE 32.7 (>39); GLUCOSE, FASTING 602 MG/DL (70-100); MB/CK RELATIVE INDEX 5.89 (< OR =4); POTASSIUM SERUM 4.9 MEQ/L (3.5-5.1); SODIUM LEVEL 132 MEQ/L (136-145); TOTAL PROTEIN 5.7 GM/DL (6.4-8.2); TROPONIN I 0.06 NG/ML (< 0.10)
--- NOTE | 2020-11-07 04:59 | ECGEPIP ---
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
== END 2020-11-06 16:43 | disposition left against medical advice (07) ==
LOC: M ED 14:40
DX: Z53.21 Procedure and treatment not carried out due to patient leaving prior to being seen by health care provider (principal)

== ENCOUNTER 2020-11-06 21:07 | Inpatient (IN) | payer MEDICARE ==
[~2020-11-06] VITALS: Ht 157.5 cm; Wt 61.3 kg
[~2020-11-06 21:07] MED LIST changes: +DOXY-443 PO; -DOXY1CAP62 PO
[2020-11-06] MEDS ORDERED: methylPREDNISolone 125MG 2ML VIAL IV ONE (21:15)
[2020-11-06] MEDS: COMBIVENT RESPIMAT 100-20MCG INHALER 4GM INH SCH ×3 (21:39→22:13)
[2020-11-06 21:55] LABS: BASO % 0.3 % (0.0-1.0); HEMATOCRIT 25.6 % (36.0-47.0); HEMOGLOBIN 8.7 g/dl (12.0-15.5); LYMPH # 0.4 10^3/uL (1.5-5.0); LYMPH % 3.3 % (24.0-44.0); MEAN CORPUSCULAR HEMOGLOBIN 32.1 pg (27.0-33.0); MEAN CORPUSCULAR VOLUME 94.5 fl (80.0-96.0); MONO # 0.8 10^3/uL (0.0-0.8); MONO % 6.3 % (2.0-8.0); NEUTROPHILS # 11.7 10^3/uL (1.5-8.5); NEUTROPHILS % 89.3 % (36.0-66.0); PLATELET COUNT, AUTOMATED 189 10^3/uL (150-450); RED BLOOD COUNT 2.71 10^6/uL (4.00-5.40); WHITE BLOOD COUNT 13.1 10^3/uL (4.0-10.0)
[2020-11-06 22:24] LABS: ALBUMIN 2.5 GM/DL (3.2-5.2); ALT/SGPT 25 U/L (12-78); BILIRUBIN,DIRECT < 0.1 MG/DL (0.0-0.2); BILIRUBIN,TOTAL 0.2 MG/DL (0.2-1.0); BLOOD UREA NITROGEN 37 MG/DL (7-18); CALCIUM LEVEL 8.9 MG/DL (8.8-10.2); CARBON DIOXIDE LEVEL 26 MEQ/L (21-32); CHLORIDE LEVEL 103 MEQ/L (98-107); CK-MB VALUE MASS 5.8 NG/ML (<3.6); CPK CREATINE PHOSPHOKINASE 112 U/L (26-192); CREATININE FOR GFR 1.55 MG/DL (0.55-1.30); GLOMERULAR FILTRATION RATE 34.7 (>39); GLUCOSE, FASTING 362 MG/DL (70-100); MB/CK RELATIVE INDEX 5.18 (< OR =4); NT-PRO BNP 9347 PG/ML (<450); POTASSIUM SERUM 4.8 MEQ/L (3.5-5.1); SODIUM LEVEL 136 MEQ/L (136-145); TOTAL PROTEIN 5.5 GM/DL (6.4-8.2); TROPONIN I 0.27 NG/ML (< 0.10)
--- NOTE | 2020-11-06 22:38 | REPVR ---
PROCEDURE INFORMATION: Exam: XR Chest Exam date and time: 11/06/2020 9:13 PM Age: 75 years old Clinical indication: Cough and dyspnea; Additional info: Dyspnea/cough TECHNIQUE: Imaging protocol: XR of the chest. Views: 1 view. COMPARISON: CR PORTABLE CHEST X-RAY 11/05/2020 7:50 PM FINDINGS: Lungs: Coarse interstitium extending into the right upper lobe which is similar consistent with scar. No interval infiltrates. There is interval clearing in the right base. Pleural spaces: Pleural thickening in the lateral upper right hemithorax. Heart/Mediastinum: The heart and mediastinum are unchanged. Bones/joints: Amorphous calcification adjacent to the greater tubercle of the left shoulder consistent with calcific tendinitis. IMPRESSION: 1. Interval right base clearing since 11/05/2020. 2. Otherwise stable chest. Electronically signed by: Darwin Zimmerman On 11/06/2020 22:38:25 PM
[2020-11-06] MEDS ORDERED: ISOVUE-370 76% 100ML VIAL As Ordered ONE (23:08)
--- NOTE | 2020-11-06 23:47 | REPVR ---
PROCEDURE INFORMATION: Exam: CTA Chest With Contrast Exam date and time: 11/06/2020 10:31 PM Age: 75 years old Clinical indication: Shortness of breath; Additional info: SOB, chest pain, elevated trops TECHNIQUE: Imaging protocol: Computed tomographic angiography of the chest with contrast. 3D rendering (Not supervised by radiologist): MIP and/or 3D reconstructed images were created by the technologist. Radiation optimization: All CT scans at this facility use at least one of these dose optimization techniques: automated exposure control; mA and/or kV adjustment per patient size (includes targeted exams where dose is matched to clinical indication); or iterative reconstruction. Contrast material: ISO; Contrast volume: 75 ml; Contrast route: INTRAVENOUS (IV); COMPARISON: CT ANGIO CHEST 09/22/2020 12:23 PM FINDINGS: Pulmonary arteries: The main pulmonary artery measures 30 mm. No pulmonary embolism is identified. Aorta: The ascending thoracic aorta measures 31 mm. Great vessels off aortic arch: Atherosclerotic plaque with mild stenosis of the proximal left subclavian artery and probable high-grade stenosis of the proximal left vertebral artery. Lungs: Mild scattered fibro-atelectatic change, greatest in the subpleural lateral right upper lobe. Pleural spaces: Unremarkable. No pneumothorax. No pleural effusion. Heart: Unremarkable. No cardiomegaly. No pericardial effusion. Lymph nodes: Unremarkable. No enlarged lymph nodes. Bones/joints: Unremarkable. No acute fracture. Soft tissues: Unremarkable. IMPRESSION: 1. Resolution of bilateral pleural effusions and decreased areas of infiltrate and atelectasis since 09/22/2020. Mild scattered residual fibro-atelectatic change is noted, greatest in the right upper lobe. 2. Atherosclerotic plaque with mild stenosis of the proximal left subclavian artery and probably the proximal left vertebral artery. 3. Otherwise negative CTA chest. No pulmonary embolism is identified. Electronically signed by: Darwin Zimmerman On 11/06/2020 23:47:38 PM
[2020-11-07] VITALS (12 sets, daily range): BP systolic 151–162; BP diastolic 67–98; O2SAT 96–100
[2020-11-07 01:35] LABS: CK-MB VALUE MASS 7.2 NG/ML (<3.6); MB/CK RELATIVE INDEX 6.73 (< OR =4); TROPONIN I 0.32 NG/ML (< 0.10)
[2020-11-07] MEDS ORDERED: ASPIRIN 81 MG CHEW TABLET PO ONE (04:05)
[2020-11-07] MEDS ORDERED: ENOXAPARIN 100MG/1ML SYRINGE (J1650 PER 10MG) SC ONE (04:05)
[2020-11-07] MEDS ORDERED: CLOPIDOGREL 300 MG TAB (PLAVIX) PO STA (04:05)
[2020-11-07] MEDS ORDERED: ONDANSETRON 4MG/2ML VIAL IV PRN (04:45)
[2020-11-07] MEDS ORDERED: MORPHINE 2 MG/ML 1ML VIAL (J2270) IV PRN (04:45)
[2020-11-07] MEDS ORDERED: ACETAMINOPHEN TAB 650MG DOSE (2X325MG) PO PRN (04:45)
[2020-11-07] MEDS ORDERED: NITROGLYCERIN 0.4 MG SUBL TABLET SL PRN (04:45)
[2020-11-07] MEDS ORDERED: ACETAMINOPHEN TAB 650MG DOSE (2X325MG) PO ONE (04:45)
[2020-11-07] MEDS ORDERED: HOME MED LIST COMPLETE! XX SCH (04:50)
[2020-11-07 05:08] LABS: CREATININE FOR GFR 1.34 MG/DL (0.55-1.30)
--- NOTE | 2020-11-07 05:13 | ECGEPIP ---
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
--- NOTE | 2020-11-07 05:15 | ECGEPIP ---
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
[2020-11-07] MEDS ORDERED: HEPARIN DRIP 25,000 UNITS in IV 1 EA IV SCH ×2 (05:30→16:00)
[2020-11-07] MEDS ORDERED: DEXTROSE 50% 50 ML SYRINGE IV PRN (05:30)
[2020-11-07] MEDS ORDERED: GLUCAGON INJ 1MG VIAL SC PRN (05:30)
[2020-11-07] MEDS ORDERED: GLUCOSE 4GM CHEW TABLET PO PRN (05:30)
[2020-11-07] MEDS ORDERED: HEPARIN SOD (PORCINE) 5000UNITS/ML 1ML VIAL/SYRINGE IV PRN ×2 (05:30→16:00)
[2020-11-07] MEDS ORDERED: ALBUTEROL 90 MCG/ACT 8GM HFA INHALER INH PRN (05:40)
[2020-11-07] MEDS ORDERED: hydrOXYzine 10 MG TAB PO PRN (05:40)
--- NOTE | 2020-11-07 05:59 | HPEPDOC ---
General Date of Admission Nov 06, 2020 at 21:08 Date of Service: Nov 07, 2020 Attending Physician: AMITA WILHELM MD Chief Complaint The patient is a 75-year-old female admitted with a reason for visit of Chest Pain/ Dyspnea/ Elvated Troponin. History of Present Illness CC: Shortness of breath HISTORY OF PRESENT ILLNESS: This is a 75-year-old elderly female who presents to [facility] ER with chief complaint of shortness of breath. Patient is a very poor historian and was very tired and wanted to sleep instead of talking to a physician. 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 Patient is oxygen dependent on 4 L at home but states that she has become progressively short of breath that was initially relieved by inhaler treatments. However she states that she then experienced a a dull chest pain rated as a 4 out of 10. She states that the chest pain is located in substernal region which lasted about a minute and then went away and denies any radiation to her jaw or arms or change in pain with positioning. She also denies any profuse sweating dizziness headache presyncope or syncope, or vision changes. denies any paroxysm al nocturnal dyspnea. She states that she has not had any increased cough or sputum production, hemoptysis. Also denies any recent travel outside of the or [facility] or exposure to sick contacts. In the ER, she was hypoxic on room air requiring 6 L supplemental oxygen to saturate over 90%. Her troponin was also elevated x3 EKG shows normal sinus rhythm. Ventricular hypertrophy with repolarization abnormalities. Cannot rule out septal infarct, age undetermined. She was given loading dose of aspirin and Plavix and 60 mg of therapeutic Lovenox as well as a loading dose of Solu-Medrol and breathing treatments for her wheezing. REVIEW OF SYSTEMS: General: Denies fever, shaking chills, unintentional weight loss HEENT: Denies changes in vision including blurry vision or double vision, or hearing loss nasal congestion or sore throat Heart: dull chest pain in substernal region, no radiation. Denies palpitations. noticed Left foot swelling a few days ago Pulm: Denies cough or sputum production. shortness of breath on home O2 (4L), which initially improved with inhalers GI: Denies nausea vomiting diarrhea abdominal pain or bloody stools Psych: Denies sadness or loss of interest in doing things, no thoughts of self- harm or suicidal ideation PAST MEDICAL HISTORY: 1. Chronic back pain 2. L4 compression 3. Spinal stenosis 4. Peripheral vascular disease s/p right LE angioplasty with stenting 5. Stage 3 CKD 6. Bladder cancer 7. Severe COPD/emphysema 8. Dyslipidemia 9. Insulin-dependent diabetes mellitus 10. Hypothyroidism 11. Hypertension 12. CHF 13. Right upper lobe lung mass 14. Anxiety/depression PAST SURGICAL HISTORY: 1. Hysterectomy 2. Vaginal tumor removal 3. Bilateral leg stents 4. Lung mass removed 5. Bilateral cataract surgery SOCIAL HISTORY: Started smoking at age of [age]. Still actively smoking 1 pack/day Denies alcohol use. Occasional marijuana use but denies illicit drug use, cocaine. FAMILY HISTORY: Unable to obtain as patient was uncooperative PHYSICAL EXAM: VS: see below GENERAL: Small frail looking elderly female laying in bed without any acute distress on 6 L nasal cannula satting at 98%. No signs of respiratory distress, no accessory muscle use able to speak in full sentences without any distress. AAOx3 NEURO: No focal neurological deficits HEENT: Head is normocephalic and atraumatic. Extraocular muscles are intact. Pupils are equal, round, and reactive to light and accommodation. Nares appears normal. Moist mucous membranes. PULM: Wheezing throughout but unable to appreciate rhonchi rales. No dullness to percussion or tactile fremitus appreciated CARDIO: Normal S1, S2. no significant murmurs, gallops, rubs or clicks. Left foot swollen with 3+ pitting otherwise no pitting edema appreciated ABDOMEN: Soft, nontender, and nondistended. Normal bowel sounds. No significant organomegaly appreciated. EXTREMITIES: No cyanosis. Clubbing in fingernails appreciated. No petechiae rashes or bruising noted. IMAGING Chest x-ray impression interval right base clearing since 11/05/2020 otherwise stable chest CTA of the chest with contrast impression resolution of bilateral pleural effusion and decreased areas of infiltrate and atelectasis since 09/22/2020. Mild scattered residual fibroatelectasis change greatest in the right upper lobe. Atherosclerotic plaque with mild stenosis of the proximal left subclavian artery and probably the proximal left vertebral artery. Otherwise negative CTA chest no pulmonary embolism identified ASSESSMENT AND PLAN This is a 75-year-old female who presents to the ER with chief complaint of shortness of breath associated chest pain who had elevated troponins x3 in the ER and abnormal EKG. ER consulted Dr. Benedict (stove polisher) who states he will see her in the a.m. but in the meantime recommended continuing aspirin and Pl avix and Lovenox. She was given loading doses of aspirin and Plavix as well as therapeutic Lovenox and placed on O2 supplementation. She was also given loading dose of Solu-Medrol for COPD exacerbation and hospitalist called to admit the patient for further management of her care. NSTEMI vs type II [place] Patient status post loading dose of aspirin and Plavix in the ER. We will con tinue her on 81 mg and 75 mg of Plavix metoprolol 50 p.o. twice daily with hold parameters if SBP is less than 100, heart rate less than 50 call on-call physician. Will start heparin drip for NSTEMI Start lisinopril 2.5 daily Nitro 0.4 sublingual as needed for chest pain can repeat in 5 minutes if no relief Morphine sulfate 2 mg IV every 5 as needed for chest pain max 10 mg in 1 hour with hold parameters in respiration is less than 10 or SBP less than 90 Zofran as needed for nausea; Tylenol every 6 for pain or fever We will start atorvastatin 80 mg p.o. Imaging change in uptrend in her troponins. Will admit to ICU with telemetry w ith OOB as tolerated. 2 g sodium diet We will titrate O2 to O2 above 92% Glucose monitoring before meals and at bedtime Hypoxic respiratory failure likely secondary to acute COPD exacerbation Patient has a history of noncompliance with medications Patient is on home oxygen at 4 L on arrival to ER patient was hypoxic requiring supplemental 6 L oxygen; Solu-Medrol loaded in ER will continue with 40 mg every 8 hours continue DuoNebs every 4 hours albuterol every 2 as needed for wheezing or shortness of breath. No antibiotics at this point patient denies any increased cough or sputum production.Has mild leukocytosis likely steroid induced (pateint is on chronic steroids). Will obtain ABG O2 to maintain O2 saturation above 92%. Type 2 diabetes Sliding scale insulin with hypoglycemic protocol FSBS before meals and at bedtime Consistent carb diet Hypertension added Metoprolol 50 twice daily, changed lisinopril 2.5 daily. d/cd home hydralazine 2 g sodium diet CHF, unspecified type Patient is clinically euvolemic; however, her L foot is swollen. will obtain u/s doppler of left lower extr to r/o DVT. strict in and out with 2l fluid restriction and daily weigh ins Hyperlipidemia Continue home atorvastatin, changed from home dose of 40mg to 80 Hypothyroidism Continue home levothyroxine Anxiety/depression Continue home duloxetine and as needed hydroxyzine DVT prophylaxis Heparin drip CODE STATUS: Full Home Medications Scheduled Amlodipine Besylate (Amlodipine Besylate) 10 Mg Tablet, 10 MG PO QPM, (Reported) TAKES AT 1700 Atorvastatin Calcium (Atorvastatin Calcium) 40 Mg Tablet, 40 MG PO QHS, (Reported) Clopidogrel Bisulfate (Plavix) 75 Mg Tablet, 75 MG PO DAILY, (Reported) Duloxetine Hcl (Duloxetine HCl) 60 Mg Capsule.dr, 60 MG PO DAILY, (Reported) Fluticasone/Vilanterol (Breo Ellipta 200-25 Mcg INH) 1 Each Blst.w.dev, 1 PUFF INH DAILY, (Reported) Gabapentin (Gabapentin) 100 Mg Capsule, 100 MG PO QHS, (Reported) Hydralazine HCl (Hydralazine HCl) 50 Mg Tablet, 50 MG PO BID, (Reported) 0800, 1700 Insulin Detemir (Levemir) 100 Unit/1 Ml Vial, 20 UNITS SC DAILY, (Reported) TAKES AT 1500 Levothyroxine Sodium (Synthroid) 75 Mcg Tablet, 75 MCG PO DAILY, (Reported) Lisinopril (Lisinopril) 20 Mg Tablet, 20 MG PO BID, (Reported) 0800, 1700 Metformin HCl (Metformin HCl) 500 Mg Tablet, 500 MG PO BID, (Reported) 0800, 1700 Scheduled PRN Hydroxyzine HCl (Hydroxyzine HCl) 10 Mg Tablet, 10 MG PO Q8H PRN for ANXIETY, (Reported) Allergies Coded Allergies: Sulfa (Sulfonamide Antibiotics) (Verified Allergy, Mild, RASH, 10/07/20) bacitracin (Verified Allergy, Mild, RASH, 10/07/20) cortisone (Verified Allergy, Mild, RASH, 10/07/20) neomycin (Verified Allergy, Mild, RASH, 10/07/20) polymyxin B (Verified Allergy, Mild, RASH, 10/07/20) red dye (Unverified Allergy, Mild, rash OCCURRED ONCE WITH CAPSULE MED NO OTHER PROBLEMS WIT, 10/07/20) fluoxetine (Unverified Allergy, Unknown, 10/07/20) tramadol (Unverified Allergy, Unknown, 10/07/20) HAS HAD OXYCODONE BEFORE WITHOUT ISSUE GME ATTESTATION GME ATTESTATION My faculty preceptor for this patient encounter was physically present during the encounter and was fully available. All aspects of the patient interview, examination, medical decision making process, and medical care plan development were reviewed and approved by the faculty preceptor. The faculty preceptor is aware and concurs with the plan as stated in the body of this note and will attest to such by his/her cosignature. ATTENDING NOTE I, Terrance Wilhelm, have independently examined this patient and performed my own physical exam, as well as reviewed the documentation and edited where necessary. I have discussed in detail with the resident / student the findings and plan of treatment as documented by the resident / student and edited their note. I agree with their findings and treatment plan and have edited their documentation. I will continue to follow the patient during this hospital stay. Sukhjinder Mann DO Nov 07, 2020 05:59 AMITA WILHELM MD Nov 28, 2020 20:58
[2020-11-07 06:51] LABS: HEMATOCRIT 24.6 % (36.0-47.0); HEMOGLOBIN 8.3 g/dl (12.0-15.5); MEAN CORPUSCULAR HEMOGLOBIN 31.7 pg (27.0-33.0); MEAN CORPUSCULAR HGB CONC 33.7 g/dl (32.0-36.5); MEAN CORPUSCULAR VOLUME 93.9 fl (80.0-96.0); PLATELET COUNT, AUTOMATED 165 10^3/uL (150-450); RED BLOOD COUNT 2.62 10^6/uL (4.00-5.40); WHITE BLOOD COUNT 10.6 10^3/uL (4.0-10.0)
[2020-11-07] MEDS ORDERED: **hydrALAZINE** 50 MG TAB PO SCH (08:00)
--- NOTE | 2020-11-07 08:23 | REPVR ---
PROCEDURE INFORMATION: Exam: US Duplex Left Lower Extremity Veins, Limited Exam date and time: 11/07/2020 6:32 AM Age: 75 years old Clinical indication: Edema, localized; Lower extremity, left; Additional info: Swelling TECHNIQUE: Imaging protocol: Real-time Duplex ultrasound of the Left Lower Extremity with 2-D altamirano scale, color Doppler flow and spectral waveform analysis with image documentation. Limited exam focused on the left lower extremity veins. COMPARISON: US Duplex, Ext,LOWER veins,unilat 09/02/2020 4:25 PM FINDINGS: Left deep veins: Unremarkable. The common femoral, femoral, proximal profunda femoral and popliteal veins are patent without thrombus. Normal Doppler waveforms. Normal compressibility and/or augmentation response. Left superficial veins: Unremarkable. Saphenofemoral junction is patent without thrombus. Soft tissues: Unremarkable. IMPRESSION: No evidence of deep vein thrombosis. Electronically signed by: Justin Ying On 11/07/2020 08:23:30 AM
[2020-11-07] MEDS: LEVOTHYROXINE 75MCG TABLET (0.075MG) PO SCH (08:55)
[2020-11-07] MEDS: HumaLOG INSULIN (NovoLOG) PER UNIT SC SCH ×3 (08:57→17:26)
[2020-11-07] MEDS: methylPREDNISolone 40MG 1ML VIAL IV SCH ×3 (08:57→22:15)
[2020-11-07] MEDS: LEVEMIR (INSULIN DETEMIR) 1 UNITS/0.01ML SC SCH (09:00)
[2020-11-07] MEDS: DULoxetine 30MG CAPSULE (CYMBALTA) PO SCH (09:32)
[2020-11-07] MEDS: LISINOPRIL *2.5 MG* TAB PO SCH (09:33)
[2020-11-07] MEDS: METOPROLOL TART 50 MG TAB PO SCH ×4 (09:33→20:38)
[2020-11-07] MEDS: CALCIUM CARBONATE 500 MG CHEW U/D PO SCH (17:25)
[2020-11-07] MEDS ORDERED: HumaLOG INSULIN (NovoLOG) PER UNIT SC SCH (21:00)
[2020-11-07] MEDS ORDERED: ATORVASTATIN 20 MG TAB PO SCH (21:00)
[2020-11-07] MEDS ORDERED: GABAPENTIN 100 MG CAP PO SCH (21:00)
[2020-11-07] MEDS ORDERED: NICOTINE 21MG/24HR 1 EA TRANSDERMAL TD PRN (21:25)
[2020-11-08] VITALS (10 sets, daily range): BP systolic 121–170; BP diastolic 62–89; O2SAT 97–100
[2020-11-08 03:55] LABS: HEMATOCRIT 24.9 % (36.0-47.0); HEMOGLOBIN 8.1 g/dl (12.0-15.5); MEAN CORPUSCULAR HEMOGLOBIN 30.9 pg (27.0-33.0); MEAN CORPUSCULAR HGB CONC 32.5 g/dl (32.0-36.5); PLATELET COUNT, AUTOMATED 159 10^3/uL (150-450); RED BLOOD COUNT 2.62 10^6/uL (4.00-5.40)
[2020-11-08 05:06] LABS: CALCIUM LEVEL 8.5 MG/DL (8.8-10.2); CREATININE FOR GFR 1.21 MG/DL (0.55-1.30); GLOMERULAR FILTRATION RATE 46.2 (>39); MAGNESIUM LEVEL 1.8 MG/DL (1.8-2.4); POTASSIUM SERUM 4.6 MEQ/L (3.5-5.1)
[2020-11-08] MEDS: LEVOTHYROXINE 75MCG TABLET (0.075MG) PO SCH (05:54)
[2020-11-08] MEDS: methylPREDNISolone 40MG 1ML VIAL IV SCH ×2 (05:54→13:25)
[2020-11-08] MEDS: HumaLOG INSULIN (NovoLOG) PER UNIT SC SCH ×3 (07:30→17:12)
--- NOTE | 2020-11-08 08:12 | REP ---
INDICATION: shortnes of breath COMPARISON: 11/06/2020 TECHNIQUE: Portable AP view of the chest FINDINGS: Mediastinum and cardiac silhouette are stable. Right upper lobe pleuroparenchymal changes are similar to prior examination. There is a new small to moderate left pleural effusion and left lower lobe atelectasis/early infiltrate. IMPRESSION: New small to moderate left pleural effusion and left lower lobe opacity/atelectasis. <Electronically signed by Danis Greenfield > 11/08/20 0854
[2020-11-08] MEDS ORDERED: FLUBLOK(EGG FREE)(QUAD)INFLUENZA VACC 0.5ML SYRINGE 18YRS & OLDER IM ONE (09:00)
[2020-11-08] MEDS: METOPROLOL TART 50 MG TAB PO SCH ×3 (09:03→17:12)
[2020-11-08] MEDS: DULoxetine 30MG CAPSULE (CYMBALTA) PO SCH (09:03)
[2020-11-08] MEDS: LISINOPRIL *2.5 MG* TAB PO SCH (09:03)
[2020-11-08] MEDS: CALCIUM CARBONATE 500 MG CHEW U/D PO SCH ×3 (09:03→17:12)
[2020-11-08] MEDS: LEVEMIR (INSULIN DETEMIR) 1 UNITS/0.01ML SC SCH (09:04)
--- NOTE | 2020-11-08 11:55 | IPNPDOC ---
Text Note Date of Service The patient was seen on 11/08/20. NOTE Subjective: Patient seen and examined at bedside. No acute overnight events reported. Patient voices no new medical complaints this morning. Objective: Vital Signs: reviewed and within normal limits General: NAD, lying comfortably in bed HEENT: NC/AT, EOMI Neck: supple, no masses Chest: diminished breath sounds, scattered wheezing Heart: +S1S2, RRR Abd: soft, NT, ND, +BS Ext: peripheral edema, clubbing of bilateral hands Skin: no rashes MSK: full ROM at large joints Neuro: no gross focal deficits Psych: AAOx3 A/P: 75F with multiple hospital admissions, frequently leaving AMA, presents for SOB and chest pain, found to have elevated troponins x3 in the ER and abnormal EKG. ER consulted Dr. Benedict (service dismantler) who stated he will see her in the a.m. but in the meantime recommended continuing aspirin and Plavix and Lovenox. She was given loading doses of aspirin and Plavix as well as therapeutic Lovenox and placed on O2 supplementation. She was also given loading dose of Solu-Medrol for COPD exacerbation and hospitalist called to admit the patient for further management of her care. #NSTEMI vs type II [place] - Patient status post loading dose of aspirin and Plavix in the ER - continue with ASA, heparin gtt, metoprolol - trend H/H - stool +guaic - continue lisinopril 2.5 daily - Nitro 0.4 sublingual as needed for chest pain can repeat in 5 minutes if no relief - Morphine sulfate 2 mg IV every 5 as needed for chest pain max 10 mg in 1 hour with hold parameters in respiration is less than 10 or SBP less than 90 - Zofran as needed for nausea; Tylenol every 6 for pain or fever - atorvastatin 80 mg p.o. #chronic hypoxic respiratory failure/COPD - baseline 3-4 L at home - titrate solumederol to prednisone - possible PNA - will start abx - likely levaquin #Type 2 diabetes Sliding scale insulin with hypoglycemic protocol FSBS before meals and at bedt kacy Consistent carb diet #HTN added Metoprolol 50 twice daily, changed lisinopril 2.5 daily. d/cd home hydralazine 2 g sodium diet #CHF - systolic and diastolic dysfunction - grossly compensated strict in and out with 2l fluid restriction and daily weigh ins #Hyperlipidemia Continue home atorvastatin, changed from home dose of 40mg to 80 #Hypothyroidism Continue home levothyroxine #Anxiety/depression Continue home duloxetine and as needed hydroxyzine #nicotine abuse - continue nicotine replacement therapy #medical non-compliance - complicates care #DVT prophylaxis Heparin drip CODE STATUS: Full VS,Fishbone, I+O VS, Fishbone, I+O Laboratory Tests 11/08/20 03:44 Vital Signs Date Time Temp Pulse Resp B/P (MAP) Pulse Ox O2 Delivery O2 Flow Rate FiO2 11/08/20 10:00 100 4.0 11/08/20 09:03 160/70 11/08/20 08:00 98.1 71 25 Nasal Cannula I&O- Last 24 Hours up to 6 AM 11/08/20 06:00 Intake Total 1912 ml Output Total 1200 ml Balance 712 ml CHAYO WOODS MD Nov 08, 2020 11:55
--- NOTE | 2020-11-09 06:39 | DS.PDOC ---
Discharge Summary General Date of Admission Nov 06, 2020 at 21:08 Date of Discharge 11/08/20 Discharge Summary PROCEDURES PERFORMED DURING STAY: [None]. PAST MEDICAL HISTORY: 1. Chronic back pain 2. L4 compression 3. Spinal stenosis 4. Peripheral vascular disease s/p right LE angioplasty with stenting 5. Stage 3 CKD 6. Bladder cancer 7. Severe COPD/emphysema 8. Dyslipidemia 9. Insulin-dependent diabetes mellitus 10. Hypothyroidism 11. Hypertension 12. CHF 13. Right upper lobe lung mass 14. Anxiety/depression PAST SURGICAL HISTORY: 1. Hysterectomy 2. Vaginal tumor removal 3. Bilateral leg stents 4. Lung mass removed 5. Bilateral cataract surgery COMPLICATIONS/CHIEF COMPLAINT: Chest Pain/ Dyspnea/ Elevated Troponin. HISTORY OF PRESENT ILLNESS: This is a 75-year-old elderly female who presents to [facility] ER with chief complaint of shortness of breath. Patient is a very poor historian and was very tired and wanted to sleep instead of talking to a physician. 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 Patient is oxygen dependent on 4 L at home but states that she has become progressively short of breath that was initially relieved by inhaler treatments. However she states that she then experienced a a dull chest pain rated as a 4 out of 10. She states that the chest pain is located in substernal region which lasted about a minute and then went away and denies any radiation to her jaw or arms or change in pain with positioning. She also denies any profuse sweating dizziness headache presyncope or syncope, or vision changes. denies any paroxysmal nocturnal dyspnea. She states that she has not had any increased cough or sputum production, hemoptysis. Also denies any recent travel outside of the or state or exposure to sick contacts. In the ER, she was hypoxic on room air requiring 6 L supplemental oxygen to saturate over 90%. Her troponin was also elevated x3 EKG shows normal sinus rhythm. Ventricular hypertrophy with repolarization abnormalities. Cannot rule out septal infarct, age undetermined. She was given loading dose of aspirin and Plavix and 60 mg of therapeutic Lovenox as well as a loading dose of Solu-Medrol and breathing treatments for her wheezing. HOSPITAL COURSE: Patient was admitted for further evaluation and treatment. She was started on a heparin drip with cardiology consultation. She again ended up leaving against medical advice. She was advised that she needs outpatient follow up with her PCP and cardiology, and ultimately to decide regarding a cardiac catheterization. She acknowledged full understanding of risks for leaving against medical advice including . DISCHARGE MEDICATIONS: Please see below. ALLERGIES: Please see below. PHYSICAL EXAMINATION ON DISCHARGE: VITAL SIGNS: Please see below. GENERAL: Small frail looking elderly female laying in bed without any acute distress NEURO: No focal neurological deficits HEENT: Head is normocephalic and atraumatic. Extraocular muscles are intact. Pupils are equal, round, and reactive to light and accommodation. Nares appears normal. Moist mucous membranes. PULM: Wheezing throughout but unable to appreciate rhonchi rales. No dullness to percussion or tactile fremitus appreciated CARDIO: Normal S1, S2. no significant murmurs, gallops, rubs or clicks. Left foot swollen with 3+ pitting otherwise no pitting edema appreciated ABDOMEN: Soft, nontender, and nondistended. Normal bowel sounds. No significant organomegaly appreciated. EXTREMITIES: No cyanosis. Clubbing in fingernails appreciated. No petechiae rashes or bruising noted. LABORATORY DATA: Please see below. ACTIVITY: [As tolerated]. DISPOSITION: 07 Against Medical Advice. DISCHARGE INSTRUCTIONS: 1.Follow up PCP as soon as possible - recommend c/s with cardiology for possible cardiac catheterization. DISCHARGE CONDITION: Guarded, poor prognosis TIME SPENT ON DISCHARGE: 35 minutes. Vital Signs/I&Os Vital Signs Date Time Temp Pulse Resp B/P (MAP) Pulse Ox O2 Delivery O2 Flow Rate FiO2 11/08/20 16:00 4.0 11/08/20 16:00 98.1 69 14 165/86 (112) 99 Nasal Cannula I&O- Last 24 Hours up to 6 AM 11/09/20 06:00 Intake Total 1250 ml Output Total 0 ml Balance 1250 ml Laboratory Data Labs 24H Laboratory Tests 2 11/08/20 11:18: Activated Partial Thromboplast Time 65.7H 11/08/20 12:17: Bedside Glucose (Misc Panel) 383H 11/08/20 17:05: Bedside Glucose (Misc Panel) 460H 11/08/20 17:24: Activated Partial Thromboplast Time 37.4 FSBS Laboratory Tests Test 11/08/20 12:17 11/08/20 17:05 Range/Units Bedside Glucose (Misc Panel) 383 460 83-110 MG/DL Microbiology Microbiology 11/08/20 Stool Occult Blood (SANDRA) - Final, Complete 11/06/20 Respiratory Virus Panel (PCR) (SANDRA) - Final, Complete Discharge Medications Scheduled Amlodipine Besylate (Amlodipine Besylate) 10 Mg Tablet, 10 MG PO QPM, (Reported) TAKES AT 1700 Atorvastatin Calcium (Atorvastatin Calcium) 40 Mg Tablet, 40 MG PO QHS, (Reported) Clopidogrel Bisulfate (Plavix) 75 Mg Tablet, 75 MG PO DAILY, (Reported) Duloxetine Hcl (Duloxetine HCl) 60 Mg Capsule.dr, 60 MG PO DAILY, (Reported) Fluticasone/Vilanterol (Breo Ellipta 200-25 Mcg INH) 1 Each Blst.w.dev, 1 PUFF INH DAILY, (Reported) Gabapentin (Gabapentin) 100 Mg Capsule, 100 MG PO QHS, (Reported) Hydralazine HCl (Hydralazine HCl) 50 Mg Tablet, 50 MG PO BID, (Reported) 0800, 1700 Insulin Detemir (Levemir) 100 Unit/1 Ml Vial, 20 UNITS SC DAILY, (Reported) TAKES AT 1500 Levothyroxine Sodium (Synthroid) 75 Mcg Tablet, 75 MCG PO DAILY, (Reported) Lisinopril (Lisinopril) 20 Mg Tablet, 20 MG PO BID, (Reported) 0800, 1700 Metformin HCl (Metformin HCl) 500 Mg Tablet, 500 MG PO BID, (Reported) 0800, 1700 Scheduled PRN Hydroxyzine HCl (Hydroxyzine HCl) 10 Mg Tablet, 10 MG PO Q8H PRN for ANXIETY, (Reported) Allergies Coded Allergies: Sulfa (Sulfonamide Antibiotics) (Verified Allergy, Mild, RASH, 10/07/20) bacitracin (Verified Allergy, Mild, RASH, 10/07/20) cortisone (Verified Allergy, Mild, RASH, 10/07/20) neomycin (Verified Allergy, Mild, RASH, 10/07/20) polymyxin B (Verified Allergy, Mild, RASH, 10/07/20) red dye (Unverified Allergy, Mild, rash OCCURRED ONCE WITH CAPSULE MED NO OTHER PROBLEMS WIT, 10/07/20) fluoxetine (Unverified Allergy, Unknown, 10/07/20) tramadol (Unverified Allergy, Unknown, 10/07/20) HAS HAD OXYCODONE BEFORE WITHOUT ISSUE CHAYO WOODS MD Nov 09, 2020 06:39
== END 2020-11-08 17:55 | disposition left against medical advice (07) | DRG 190 ==
LOC: M ED 21:07 → M ED INP 21:08 → ENRESERV 11-07 06:15 → M PCU 11-07 09:06
PROVIDERS: ADMIT Family Medicine; ATTEND Internal Medicine
DX: J44.1 Chronic obstructive pulmonary disease with (acute) exacerbation (principal); J96.21 Acute and chronic respiratory failure with hypoxia; I21.4 Non-ST elevation (NSTEMI) myocardial infarction; I21.A1 Myocardial infarction type 2; I13.0 Hypertensive heart and chronic kidney disease with heart failure and stage 1 through stage 4 chronic kidney disease, or unspecified chronic kidney disease; I50.42 Chronic combined systolic (congestive) and diastolic (congestive) heart failure; E11.51 Type 2 diabetes mellitus with diabetic peripheral angiopathy without gangrene; E78.5 Hyperlipidemia, unspecified; E03.9 Hypothyroidism, unspecified; E11.22 Type 2 diabetes mellitus with diabetic chronic kidney disease; F17.210 Nicotine dependence, cigarettes, uncomplicated; N18.30 Chronic kidney disease, stage 3 unspecified; Z99.81 Dependence on supplemental oxygen; Z79.02 Long term (current) use of antithrombotics/antiplatelets; Z79.4 Long term (current) use of insulin; Z79.899 Other long term (current) drug therapy; Z88.2 Allergy status to sulfonamides; Z88.5 Allergy status to narcotic agent; Z88.8 Allergy status to other drugs, medicaments and biological substances; Z91.048 Other nonmedicinal substance allergy status; Z98.41 Cataract extraction status, right eye; Z98.42 Cataract extraction status, left eye; Z91.14 Patient's other noncompliance with medication regimen

== ENCOUNTER 2020-11-10 15:29 | Emergency (ER) | payer MEDICARE ==
[~2020-11-10] VITALS: Ht 160 cm; Wt 55.0 kg
[~2020-11-10 15:29] MED LIST changes: -DOXY-443 PO; +DOXY1CAP62 PO
[2020-11-10 17:06] LABS: BASO % 0.2 % (0.0-1.0); EOS # 0.1 10^3/uL (0.0-0.5); HEMATOCRIT 28.3 % (36.0-47.0); HEMOGLOBIN 9.2 g/dl (12.0-15.5); LYMPH # 0.7 10^3/uL (1.5-5.0); LYMPH % 6.1 % (24.0-44.0); MEAN CORPUSCULAR HEMOGLOBIN 31.3 pg (27.0-33.0); MEAN CORPUSCULAR HGB CONC 32.5 g/dl (32.0-36.5); MEAN CORPUSCULAR VOLUME 96.3 fl (80.0-96.0); MONO # 0.5 10^3/uL (0.0-0.8); MONO % 4.1 % (2.0-8.0); NEUTROPHILS # 10.2 10^3/uL (1.5-8.5); NEUTROPHILS % 87.7 % (36.0-66.0); PLATELET COUNT, AUTOMATED 148 10^3/uL (150-450); RED BLOOD COUNT 2.94 10^6/uL (4.00-5.40); WHITE BLOOD COUNT 11.7 10^3/uL (4.0-10.0)
[2020-11-10 17:31] LABS: CALCIUM LEVEL 8.3 MG/DL (8.8-10.2); CREATININE FOR GFR 1.39 MG/DL (0.55-1.30); GLOMERULAR FILTRATION RATE 39.3 (>39); POTASSIUM SERUM 4.9 MEQ/L (3.5-5.1)
[2020-11-10] MEDS ORDERED: HumuLIN R (REGULAR) INSULIN (NovoLIN R) **100U/ML** PER UNIT SC ONE (18:10)
[2020-11-10 19:16] VITALS: BP 158/85
== END 2020-11-10 19:20 | disposition home or self-care (01) ==
LOC: M ED 15:29
DX: E11.65 Type 2 diabetes mellitus with hyperglycemia (principal); Z76.5 Malingerer [conscious simulation]; Z91.19 Patient's noncompliance with other medical treatment and regimen; I50.9 Heart failure, unspecified; I10 Essential (primary) hypertension; N18.30 Chronic kidney disease, stage 3 unspecified; K21.9 Gastro-esophageal reflux disease without esophagitis; E78.5 Hyperlipidemia, unspecified; M54.9 Dorsalgia, unspecified; F17.200 Nicotine dependence, unspecified, uncomplicated; Z85.51 Personal history of malignant neoplasm of bladder; Z79.02 Long term (current) use of antithrombotics/antiplatelets; Z79.84 Long term (current) use of oral hypoglycemic drugs; Z79.899 Other long term (current) drug therapy; Z88.2 Allergy status to sulfonamides; Z88.1 Allergy status to other antibiotic agents; Z88.8 Allergy status to other drugs, medicaments and biological substances; Z91.02 Food additives allergy status

== ENCOUNTER 2020-11-15 17:25 | Emergency (ER) | payer MEDICARE ==
[~2020-11-15] VITALS: Ht 157.5 cm; Wt 56.8 kg
[2020-11-15] MEDS ORDERED: LABETALOL 100MG/20ML VIAL IV STA ×2 (18:08→19:53)
[2020-11-15] MEDS ORDERED: COMBIVENT RESPIMAT 100-20MCG INHALER 4GM INH ONE (18:10)
[2020-11-15 18:36] LABS: ABG BASE EXCESS 3.1 (-2.0-2.0); ABG HCO3 27.7 MEQ/L (22.0-26.0); ABG O2 SATURATION 98.8 % (95.0-99.0); ABG PARTIAL PRESSURE CO2 42.5 mmHg (35.0-45.0); ABG PARTIAL PRESSURE O2 134.7 mmHg (75.0-100.0); ABG STANDARD HCO3 27.3 MEQ/L (22.0-26.0); ABG pH (ARTERIAL) 7.432 UNITS (7.350-7.450)
[2020-11-15] MEDS ORDERED: hydrALAZINE 20MG/ML 1ML VIAL (J0360 PER 20MG) IV ONE (18:40)
--- NOTE | 2020-11-15 18:58 | REP ---
INDICATION: DYSPNEA/COUGH. COMPARISON: 11/08/2020 TECHNIQUE: Portable FINDINGS: The technique utilized in obtaining the radiograph has magnified the cardiac silhouette and accentuated the interstitial markings. Chronic right upper lobe changes with irregular pleural density status quo. This is essentially unchanged from 02/18/2018 as well. Left pleural effusion has diminished, however, subtle left lower lobe opacities persist with slight CP angle blunting. The cardiomediastinal silhouette is unchanged. The osseous structures are unchanged. IMPRESSION: Improved left lower lobe opacities and pleural effusion. Right-sided rib fractures status quo. Other findings as described above. <Electronically signed by Dereck Biggs > 11/15/20 4170
[2020-11-15 19:07] LABS: BASO % 0.4 % (0.0-1.0); EOS # 0.2 10^3/uL (0.0-0.5); EOS % 2.1 % (0.0-3.0); HEMATOCRIT 26.5 % (36.0-47.0); HEMOGLOBIN 8.5 g/dl (12.0-15.5); LYMPH % 10.3 % (24.0-44.0); MEAN CORPUSCULAR HEMOGLOBIN 31.7 pg (27.0-33.0); MEAN CORPUSCULAR HGB CONC 32.1 g/dl (32.0-36.5); MEAN CORPUSCULAR VOLUME 98.9 fl (80.0-96.0); MONO # 0.7 10^3/uL (0.0-0.8); MONO % 7.7 % (2.0-8.0); NEUTROPHILS # 7.4 10^3/uL (1.5-8.5); NEUTROPHILS % 78.6 % (36.0-66.0); PLATELET COUNT, AUTOMATED 151 10^3/uL (150-450); RED BLOOD COUNT 2.68 10^6/uL (4.00-5.40); WHITE BLOOD COUNT 9.4 10^3/uL (4.0-10.0)
[2020-11-15 19:34] LABS: ALBUMIN 2.4 GM/DL (3.2-5.2); ALT/SGPT 24 U/L (12-78); BILIRUBIN,DIRECT < 0.1 MG/DL (0.0-0.2); BILIRUBIN,TOTAL 0.2 MG/DL (0.2-1.0); BLOOD UREA NITROGEN 20 MG/DL (7-18); CALCIUM LEVEL 8.5 MG/DL (8.8-10.2); CARBON DIOXIDE LEVEL 29 MEQ/L (21-32); CHLORIDE LEVEL 105 MEQ/L (98-107); CPK CREATINE PHOSPHOKINASE 51 U/L (26-192); CREATININE FOR GFR 1.04 MG/DL (0.55-1.30); GLUCOSE, FASTING 433 MG/DL (70-100); MB/CK RELATIVE INDEX 7.84 (< OR =4); POTASSIUM SERUM 4.4 MEQ/L (3.5-5.1); SODIUM LEVEL 137 MEQ/L (136-145); TOTAL PROTEIN 5.1 GM/DL (6.4-8.2); TROPONIN I 0.04 NG/ML (< 0.10)
[2020-11-15 19:42] LABS: RSV AMPLIFICATION NEGATIVE (NEGATIVE)
[2020-11-15] MEDS ORDERED: HumuLIN R (REGULAR) INSULIN (NovoLIN R) **100U/ML** PER UNIT IV ONE (19:55)
[2020-11-15 20:37] VITALS: BP 140/67
[2020-11-15 20:41] VITALS: BP 140/67
[2020-11-16] MEDS ORDERED: ACET500T15 PO (18:47)
--- NOTE | 2020-11-16 19:36 | ECGEPIP ---
[facility] - ED Test Date: 2020-11-15 Pat Name: ELA LIVINGSTON Department: Room: - Gender: Female Instructor Private: ED : 1945 Requested By: SHANIA CURRAN Order Number: [id number] Reading MD: Mat Toussaint Measurements Intervals [place] Rate: 81 P: 71 WI: 134 QRS: 17 QRSD: 100 T: 118 QT: 406 QTc: 471 Interpretive Statements Normal sinus rhythm POOR R WAVE PROGRESSION NSTTW ABNORMALITY(S) Prolonged QT SIMILAR TO 11/07/20 Electronically Signed on 11-16-2020 19:35:59 EDT by Mat Toussaint
== END 2020-11-15 21:10 | disposition home or self-care (01) ==
LOC: M ED 17:25
DX: J44.1 Chronic obstructive pulmonary disease with (acute) exacerbation (principal); R91.8 Other nonspecific abnormal finding of lung field; E11.9 Type 2 diabetes mellitus without complications; I10 Essential (primary) hypertension; F17.200 Nicotine dependence, unspecified, uncomplicated; Z79.4 Long term (current) use of insulin; Z79.899 Other long term (current) drug therapy; Z79.02 Long term (current) use of antithrombotics/antiplatelets; Z88.2 Allergy status to sulfonamides; Z88.5 Allergy status to narcotic agent; Z88.8 Allergy status to other drugs, medicaments and biological substances; Z91.02 Food additives allergy status
CPT/HCPCS: 71045; 80048; 80076; 82550; 82553; 82803; 83605; 84484; 85025; 87040; 87631; 93005; 93041; 96374; 96375; 99285; J0360

== ENCOUNTER 2020-11-16 15:44 | Inpatient (IN) | payer MEDICARE ==
[~2020-11-16] VITALS: Ht 157.5 cm; Wt 60.9 kg
[~2020-11-16 15:44] MED LIST changes: +DOXY-443 PO; -DOXY1CAP62 PO
[2020-11-16] MEDS ORDERED: IPRATROPIUM 0.5MG/ALBUTEROL 2.5MG INH SOL UD 3ML (DUONEB) NEB ONE (16:15)
[2020-11-16] MEDS ORDERED: ALBUTEROL SULFATE 2.5 MG/0.5 ML INH NEB SOLN NEB ONE (16:15)
[2020-11-16 16:36] LABS: ABG BASE EXCESS -0.2 (-2.0-2.0); ABG HCO3 23.8 MEQ/L (22.0-26.0); ABG O2 SATURATION 98.3 % (95.0-99.0); ABG PARTIAL PRESSURE CO2 36.2 mmHg (35.0-45.0); ABG PARTIAL PRESSURE O2 125.6 mmHg (75.0-100.0); ABG STANDARD HCO3 24.3 MEQ/L (22.0-26.0); ABG TOTAL CO2 24.9 MEQ/L (23.0-31.0); ABG pH (ARTERIAL) 7.436 UNITS (7.350-7.450)
--- NOTE | 2020-11-16 17:04 | REP ---
INDICATION: DYSPNEA/COUGH. COMPARISON: November 15, 2020. TECHNIQUE: Portable upright AP chest radiograph. FINDINGS: There is a stable area of pleural thickening and adjacent parenchymal streaky density consistent with fibrosis on the right. This is unchanged from yesterday's radiograph. More inferiorly, there is a right-sided rib fracture again noted with slight adjacent pleural thickening. Some increased markings persist in the left base essentially unchanged from yesterday's radiograph. Vascular calcification is observed in the subclavian arteries and in the aortic arch. The heart is not enlarged. No new infiltrate is seen. IMPRESSION: Pleural thickening and peripheral infiltrate persists in the right upper lobe distribution. Right lateral rib fracture and increased markings in the left base again seen. No new infiltrate seen. <Electronically signed by Aravind Sumner > 11/16/20 [id number]
[2020-11-16 17:05] LABS: BASO # 0.1 10^3/uL (0.0-0.2); BASO % 0.5 % (0.0-1.0); EOS # 0.2 10^3/uL (0.0-0.5); EOS % 1.8 % (0.0-3.0); HEMATOCRIT 26.8 % (36.0-47.0); HEMOGLOBIN 8.4 g/dl (12.0-15.5); LYMPH # 0.5 10^3/uL (1.5-5.0); LYMPH % 4.9 % (24.0-44.0); MEAN CORPUSCULAR HEMOGLOBIN 31.2 pg (27.0-33.0); MEAN CORPUSCULAR HGB CONC 31.3 g/dl (32.0-36.5); MEAN CORPUSCULAR VOLUME 99.6 fl (80.0-96.0); MONO # 0.4 10^3/uL (0.0-0.8); NEUTROPHILS # 9.7 10^3/uL (1.5-8.5); NEUTROPHILS % 87.8 % (36.0-66.0); PLATELET COUNT, AUTOMATED 150 10^3/uL (150-450); RED BLOOD COUNT 2.69 10^6/uL (4.00-5.40)
[2020-11-16 17:28] LABS: ALBUMIN 2.3 GM/DL (3.2-5.2); ALT/SGPT 24 U/L (12-78); BILIRUBIN,DIRECT < 0.1 MG/DL (0.0-0.2); BILIRUBIN,TOTAL 0.3 MG/DL (0.2-1.0); BLOOD UREA NITROGEN 16 MG/DL (7-18); CALCIUM LEVEL 8.3 MG/DL (8.8-10.2); CARBON DIOXIDE LEVEL 30 MEQ/L (21-32); CHLORIDE LEVEL 106 MEQ/L (98-107); CK-MB VALUE MASS 4.3 NG/ML (<3.6); CPK CREATINE PHOSPHOKINASE 58 U/L (26-192); CREATININE FOR GFR 0.97 MG/DL (0.55-1.30); GLOMERULAR FILTRATION RATE 59.6 (>39); GLUCOSE, FASTING 355 MG/DL (70-100); MB/CK RELATIVE INDEX 7.41 (< OR =4); NT-PRO BNP 8050 PG/ML (<450); POTASSIUM SERUM 4.7 MEQ/L (3.5-5.1); SODIUM LEVEL 139 MEQ/L (136-145); TOTAL PROTEIN 5.1 GM/DL (6.4-8.2); TROPONIN I 0.04 NG/ML (< 0.10)
[2020-11-16] MEDS ORDERED: methylPREDNISolone 125MG 2ML VIAL IV ONE (18:15)
[2020-11-16] MEDS ORDERED: GLUCAGON INJ 1MG VIAL SC PRN (18:25)
[2020-11-16] MEDS ORDERED: ACETAMINOPHEN TAB 650MG DOSE (2X325MG) PO PRN (18:25)
[2020-11-16] MEDS ORDERED: GLUCOSE 4GM CHEW TABLET PO PRN (18:25)
[2020-11-16] MEDS ORDERED: DEXTROSE 50% 50 ML SYRINGE IV PRN (18:25)
[2020-11-16] MEDS ORDERED: BENZONATATE 100MG CAPSULE PO PRN (18:25)
--- NOTE | 2020-11-16 18:43 | HPEPDOC ---
General Date of Admission Nov 16, 2020 at 15:45 Date of Service: Nov 16, 2020 Chief Complaint shortness of breath Source: Patient History of Present Illness Ms. Ponce is a 75-year-old female with significant medical history of hypertension, diabetes, current smoker and COPD who presents with complaints of shortness of breath. Patient well-known to service with multiple admissions and leaving AMA. Today, patient does have irritable affect and limitation to exam as she shows some frustration with any detailed questioning. Patient at some point reports " I am frustrated and I do not know". Patient describes her most recent stressor is having trouble with her medications as the pharmacy medication delivery option she has apparently did not send pre selected pill packs with all medications to be taken at one time and rather sent her individual medication. She reports that she does not trust herself to divvy out her medications herself, and thus it has been a few days without her medications being taken. When asked regarding with recent discharge if home health had been set up for her she said that it has not. She does show interest in having home health aide or nurse. She reports her functional status 4 L nasal cannula limitation due to dyspnea on exertion with ambulation around the house. 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 She specifically describes being unable to use his shower and how she has been doing "sponge baths" at home. She endorses increasing cough but fortunately, she describes her sputum is now clear compared to last admissions when she had yellow thick secretions. Patient does endorse wheezing and feeling poorly and thus, she came to ED. She is a poor historian regarding her steroid dosing or regarding her diabetes as well. Patient does admit that she smoked a cigarette prior to coming into the hospital today. She is adamant and describes "smoke has nothing to do with this acting up". Of note, patient + leukocytosis, afebrile, not tachycardic, mildly tachypneic. Chest x-ray "Pleural thickening and peripheral infiltrate persists in the right upper lobe distribution. Right lateral rib fracture and increased markings in the left base again seen. No new infiltrate seen." ABG shows compensation. Initial lab work blood glucose 355, Trop 0.04, hemoglobin 8.4, BNP 8050. Home Medications Scheduled Amlodipine Besylate (Amlodipine Besylate) 10 Mg Tablet, 10 MG PO QPM, (Reported) TAKES AT 1700 Atorvastatin Calcium (Atorvastatin Calcium) 40 Mg Tablet, 40 MG PO QHS, (Reported) Clopidogrel Bisulfate (Plavix) 75 Mg Tablet, 75 MG PO DAILY, (Reported) Duloxetine Hcl (Duloxetine HCl) 60 Mg Capsule.dr, 60 MG PO DAILY, (Reported) Fluticasone/Vilanterol (Breo Ellipta 200-25 Mcg INH) 1 Each Blst.w.dev, 1 PUFF INH DAILY, (Reported) Gabapentin (Gabapentin) 100 Mg Capsule, 100 MG PO QHS, (Reported) Hydralazine HCl (Hydralazine HCl) 50 Mg Tablet, 50 MG PO BID, (Reported) 0800, 1700 Insulin Detemir (Levemir) 100 Unit/1 Ml Vial, 20 UNITS SC DAILY, (Reported) TAKES AT 1500 Levothyroxine Sodium (Synthroid) 75 Mcg Tablet, 75 MCG PO DAILY, (Reported) Lisinopril (Lisinopril) 20 Mg Tablet, 20 MG PO BID, (Reported) 0800, 1700 Metformin HCl (Metformin HCl) 500 Mg Tablet, 500 MG PO BID, (Reported) 0800, 1700 Prednisone (Prednisone) 20 Mg Tablet, 40 MG PO DAILY PRednisone taper: 40 mg PO x 2 days, 20 mg PO x 3 days, 10 mg Po x 2 days Scheduled PRN Acetaminophen (Acetaminophen) 500 Mg Tablet, 500 MG PO Q6H PRN for PAIN LEVEL 1- 4, (Reported) Albuterol Sulfate (Proair Hfa) 8.5 Gm Hfa.aer.ad, 2 PUFF INH QID PRN for SHORTNESS OF BREATH, (Reported) Hydroxyzine HCl (Hydroxyzine HCl) 10 Mg Tablet, 10 MG PO Q8H PRN for ANXIETY, (Reported) Allergies Coded Allergies: Sulfa (Sulfonamide Antibiotics) (Verified Allergy, Mild, RASH, 10/07/20) bacitracin (Verified Allergy, Mild, RASH, 10/07/20) cortisone (Verified Allergy, Mild, RASH, 10/07/20) neomycin (Verified Allergy, Mild, RASH, 10/07/20) polymyxin B (Verified Allergy, Mild, RASH, 10/07/20) red dye (Unverified Allergy, Mild, rash OCCURRED ONCE WITH CAPSULE MED NO OTHER PROBLEMS WIT, 10/07/20) fluoxetine (Unverified Allergy, Unknown, 10/07/20) tramadol (Unverified Allergy, Unknown, 10/07/20) HAS HAD OXYCODONE BEFORE WITHOUT ISSUE Past Medical History Medical History 1. Chronic back pain 2. L4 compression 3. Spinal stenosis 4. Peripheral vascular disease s/p right LE angioplasty with stenting 5. Stage 3 CKD 6. Bladder cancer 7. Severe COPD/emphysema 8. Dyslipidemia 9. Insulin-dependent diabetes mellitus 10. Hypothyroidism 11. Hypertension 12. CHF 13. Right upper lobe lung mass 14. Anxiety/depression Surgical History 1. Hysterectomy 2. Vaginal tumor removal 3. Bilateral leg stents 4. Lung mass removed 5. Bilateral cataract surgery Family History Significant Family History: No pertinent family hx Social History * Smoker: current smoker (Patient last cigarette prior to admission today) Alcohol: Denies Drugs: denies Psychosocial History: Anxiety Patient lives alone and reports that she could benefit from home health assistance A-FIB/CHADSVASC A-FIB History Current/History of A-Fib/PAF?: No Current PO Anticoag Therapy: No Review of Systems Constitutional: Reports: Chills, Weakness, Fatigue; Denies: Fever, Night Sweats Eyes: Denies: Pain, Vision change ENT: Denies: Head Aches, Ear Pain, Dysphagia Skin: Denies: Rash, Lesions, Breakdown Pulmonary: Reports: Cough; Denies: Dyspnea Cardiovascular: Denies: Chest Pain, Palpitations, Orthopnea, Paroxysmal Noc. Dyspnea, Lt Headedness Gastrointestinal: Denies: Nausea, Vomiting, Abdominal Pain, Diarrhea Genitourinary: Denies: Dysuria, Frequency, Incontinence, Retention Hematologic: Denies: Bruising, Bleeding Excessively Musculoskeletal: Denies: Neck Pain, Back Pain, Joint Pain, Muscle Pain, Spasms Neurological: Denies: Weakness, Numbness, Change in speech, Confusion Psych: Reports: Mood Normal; Denies: Depression, Memory Issues Physical Examination General Exam: Positive: Alert, No Acute Distress; Negative: Cooperative Eye Exam: Positive: PERRLA, Conjunctiva & lids normal, EOMI; Negative: Sclera icteric ENT Exam: Positive: Atraumatic, Mucous membr. moist/pink, Pharynx Normal Neck Exam: Positive: Supple; Negative: JVD, thyromegaly Chest Exam: Positive: Wheezing (Sp[place] Tory wheezes) Heart Exam: Positive: Rate Normal, Regular Rhythm, Normal S1, Normal S2; Negative: Murmurs, Rubs Abdomen Exam: Positive: Normal bowel sounds, Soft; Negative: Tenderness, Hepatospenomegaly Extremity Exam: Positive: Normal pulses; Negative: Clubbing, Cyanosis, Edema Skin Exam: Positive: Nl turgor and temperature; Negative: Breakdown, Lesion Neuro Exam: Positive: Normal Gait, Normal Speech, Cranial Nerves 3-12 NL, Reflexes 2+ Psych Exam: Positive: Mental status NL, Mood NL, Oriented x 3 Vital Signs Vital Signs Date Time Temp Pulse Resp B/P (MAP) Pulse Ox O2 Delivery O2 Flow Rate FiO2 11/16/20 16:39 Nasal Cannula 4.0 11/16/20 15:55 98.0 95 18 176/80 (112) 100 Laboratory Data Labs 24H Laboratory Tests 2 11/16/20 16:24: Blood Gas Bicarbonate Standard 24.3, Arterial Blood pH 7.436, Arterial Blood Partial Pressure CO2 36.2, Arterial Blood Partial Pressure O2 125.6H, Arterial Blood Total CO2 24.9, Arterial Blood HCO3 23.8, Arterial Blood Base Excess -0.2, Arterial Blood Oxygen Saturation 98.3 11/16/20 16:38: Immature Granulocyte % (Auto) 1.0, Neutrophils (%) (Auto) 87.8H, Lymphocytes (%) (Auto) 4.9L, Monocytes (%) (Auto) 4.0, Eosinophils (%) (Auto) 1.8, Basophils (%) (Auto) 0.5, Neutrophils # (Auto) 9.7H, Lymphocytes # (Auto) 0.5L, Monocytes # (Auto) 0.4, Eosinophils # (Auto) 0.2, Basophils # (Auto) 0.1, Nucleated Red Blood Cells % (auto) 0.0, Anion Gap 3L, Glomerular Filtration Rate 59.6, Calcium Level 8.3L, Total Bilirubin 0.3, Direct Bilirubin < 0.1, Aspartate Amino Transf (AST/SGOT) 14, Alanine Aminotransferase (ALT/SGPT) 24, Alkaline Phosphatase 92, Total Creatine Kinase 58, Creatine Kinase MB 4.3H, Creatine Kinase MB Relative Index 7.41H, Troponin I 0.04, CU-Iui-V-Type Natriuretic Peptide 8050H, Total Protein 5.1L, Albumin 2.3L, Albumin/Globulin Ratio 0.8L, Thyroid Stimulating Hormone (TSH) 4.180H CBC/BMP Laboratory Tests 11/16/20 16:38 Assessment/Plan 1. Acute on Chronic COPD exacerbation and presumed pneumonia: -Patient has a history of noncompliance with medications, continues to smoke; last cigarette prior to admission. Frequently leaves AMA prior to completion of antibiotic course. -Patient is on home oxygen at 4 L- required 5.5LNC in ED, but post breathing treatment pt weaned to baseline 4LNC and ABG shows compensation. -Chest x-ray with persistent, not new, infiltrates and rib fracture (noted on previous imaging) -Monitor patient for systemic signs of infection. -Continuous pulse -Scheduled and as needed breathing treatment -Antitussives and mucolytic's -Pulmonary toilet -Acapella -Scheduled Solu-Medrol 40 mg every 8 hours -Empiric coverage. Consider expanding coverage pending procalcitonin; patient frequently had Levaquin last few admissions- she does report clearing coloration of secretions -A.m. labs 2. Hyperglycemia in patient with type 2 diabetes: BG 355. Questionable compliance to medication given HPI discussion patient also received steroids. -Monitor patient blood glucose q6h. Sliding scale insulin q6h. -Continue Levemir 20 units subcu daily. -A.m. labs. -Consistent carb diet. 3. Lactic acidosis: In setting of COPD exacerbation and presumed metformin use. -Monitor for systemic signs of infection. -Patient is on Rocephin and azithromycin. Procalcitonin pending for consideration of escalation to Zosyn and Vanc. -Blood cultures have been sent. -Patient with gentle hydration given her CHF. Repeat lactic pending. 4. HTN: Monitor BP in setting of above. Continue lisinopril. 2 g sodium diet. 5. Chronic Diastolic CHF - BNP 8050 -Last echo on file EF 45-50% -Monitor fluid balance, I's and O's, urinary output -Patient appears euvolemic on exam 6. Hyperlipidemia Continue atorvastatin 40 mg nightly 7. Hypothyroidism Continue home levothyroxine 8. Anxiety/depression Continue home duloxetine and as needed hydroxyzine 9. CT chest finding: Patient with history of CT chest in September that showed right-sided pulmonary nodules with recommendations for interval follow-up 3 to 6 months. At present patient is [address] chest pending clinical course-patient was encouraged to follow-up outpatient with her primary care doctors. 10. Recent NSTEMI II: As noted with chart review last admission. Patient was without interventions. 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 Patient denies any chest pain this admission. Initial troponin not elevated thankfully (Trop 0.04). We will continue to monitor patient -should she have any chest pain proceed for cardiac work-up/recommendations. DVT prophylaxis: Lovenox subcu CODE STATUS: Full Disposition planning: Anticipate less than 2 midnight stay; will consult case management assist with home health determination Plan / VTE VTE Prophylaxis Ordered?: Yes AMA MARTIN NP Nov 16, 2020 18:41 AALIYAH KWAN MD Nov 19, 2020 01:46
[2020-11-16] MEDS ORDERED: ACET500T15 PO (18:47)
[2020-11-16] MEDS ORDERED: HOME MED LIST COMPLETE! XX SCH (18:50)
--- NOTE | 2020-11-16 19:55 | ECGEPIP ---
[facility] - ED Test Date: 2020-11-16 Pat Name: ELA LIVINGSTON Department: Room: - Gender: Female Fur Dresser: ISAAKJOSUE : 1945 Requested By: NALDO CURRAN Order Number: [id number] Reading MD: Mat Toussaint Measurements Intervals [place] Rate: 91 P: 69 OR: 126 QRS: 30 QRSD: 102 T: 119 QT: 374 QTc: 460 Interpretive Statements Normal sinus rhythm Minimal voltage criteria for LVH, may be normal variant ( [place] product ) POOR R WAVE PROGRESSION NSTTW ABNORMALITY(S) SIMILAR TO PRIOR 11/15/20 Electronically Signed on 11-16-2020 19:55:27 EDT by Mat Toussaint
[2020-11-16] MEDS: IPRATROPIUM 0.02% SOLN 0.5MG 2.5ML NEB NEB SCH (20:00)
[2020-11-16] MEDS ORDERED: AZITHROMYCIN INJ 500 MG, VIAL MATE ADAPTER 1 EACH in NS 250 ML IV SCH (20:00)
[2020-11-16] MEDS ORDERED: cefTRIAXone SOD 1 GM in D5W MINI-BAG PLUS 50 ML IV SCH (21:00)
[2020-11-16] MEDS ORDERED: HumaLOG INSULIN (NovoLOG) PER UNIT SC SCH (21:00)
[2020-11-16] MEDS ORDERED: GABAPENTIN 100 MG CAP PO SCH (21:00)
[2020-11-16] MEDS: LEVALBUTEROL 1.25 MG/0.5 ML CONCENTRATE NEB NEB SCH (21:21)
[2020-11-16] MEDS ORDERED: NS 500 ML IV ONE (21:50)
[2020-11-16] MEDS ORDERED: hydrOXYzine 10 MG TAB PO PRN (21:50)
[2020-11-16] MEDS ORDERED: MAG SULF 1GM/100ML (MAG RUN) 1 GM in IV 1 EA IV ONE (22:00)
[2020-11-16 22:22] VITALS: BP 140/79
[2020-11-16] MEDS: guaiFENesin ER 600 MG TAB PO SCH (23:07)
[2020-11-16] MEDS ORDERED: HumuLIN R (REGULAR) INSULIN (NovoLIN R) **100U/ML** PER UNIT IV STA (23:13)
[2020-11-17] MEDS ORDERED: LEVEMIR (INSULIN DETEMIR) 1 UNITS/0.01ML SC SCH ×3 (00:10→09:00)
[2020-11-17] MEDS ORDERED: HumaLOG INSULIN (NovoLOG) PER UNIT SC ONE (00:20)
[2020-11-17] MEDS ORDERED: HumuLIN R (REGULAR) INSULIN (NovoLIN R) **100U/ML** PER UNIT IV ONE (01:50)
[2020-11-17] MEDS: LEVALBUTEROL 1.25 MG/0.5 ML CONCENTRATE NEB NEB SCH ×4 (02:00→17:54)
[2020-11-17] MEDS: IPRATROPIUM 0.02% SOLN 0.5MG 2.5ML NEB NEB SCH ×4 (02:00→17:54)
[2020-11-17] MEDS: methylPREDNISolone 40MG 1ML VIAL IV SCH ×3 (03:03→18:15)
[2020-11-17] MEDS: HumaLOG INSULIN (NovoLOG) PER UNIT SC SCH ×4 (05:35→18:16)
[2020-11-17 05:52] LABS: BASO % 0.2 % (0.0-1.0); EOS % 0.1 % (0.0-3.0); HEMATOCRIT 24.6 % (36.0-47.0); LYMPH # 0.3 10^3/uL (1.5-5.0); LYMPH % 3.5 % (24.0-44.0); MEAN CORPUSCULAR HEMOGLOBIN 31.3 pg (27.0-33.0); MEAN CORPUSCULAR HGB CONC 32.5 g/dl (32.0-36.5); MEAN CORPUSCULAR VOLUME 96.1 fl (80.0-96.0); MONO # 0.1 10^3/uL (0.0-0.8); MONO % 1.1 % (2.0-8.0); NEUTROPHILS # 8.7 10^3/uL (1.5-8.5); NEUTROPHILS % 93.6 % (36.0-66.0); PLATELET COUNT, AUTOMATED 139 10^3/uL (150-450); RED BLOOD COUNT 2.56 10^6/uL (4.00-5.40); WHITE BLOOD COUNT 9.3 10^3/uL (4.0-10.0)
[2020-11-17 06:00] VITALS: BP 128/52
[2020-11-17] MEDS ORDERED: LEVOTHYROXINE 75MCG TABLET (0.075MG) PO SCH (06:00)
[2020-11-17 06:13] LABS: CALCIUM LEVEL 8.2 MG/DL (8.8-10.2); CREATININE FOR GFR 1.15 MG/DL (0.55-1.30); POTASSIUM SERUM 4.6 MEQ/L (3.5-5.1)
[2020-11-17] MEDS ORDERED: HumaLOG INSULIN (NovoLOG) PER UNIT SC SCH (07:30)
[2020-11-17] MEDS ORDERED: LACTOBACILLUS ACIDOPHILUS CAP (BACID) PO SCH (09:00)
[2020-11-17] MEDS ORDERED: FLUBLOK(EGG FREE)(QUAD)INFLUENZA VACC 0.5ML SYRINGE 18YRS & OLDER IM ONE (09:00)
[2020-11-17] MEDS ORDERED: DULoxetine 30MG CAPSULE (CYMBALTA) PO SCH (09:00)
[2020-11-17] MEDS ORDERED: CLOPIDOGREL 75 MG TAB PO SCH (09:00)
[2020-11-17] MEDS ORDERED: ENOXAPARIN 40MG/0.4ML SYRINGE (J1650 PER 10MG) SC SCH (09:00)
[2020-11-17 09:55] VITALS: BP 126/58
[2020-11-17] MEDS: guaiFENesin ER 600 MG TAB PO SCH (09:55)
[2020-11-17 14:00] VITALS: BP 135/68
[2020-11-17] MEDS ORDERED: PRED20TA PO (14:31)
[2020-11-17] MEDS ORDERED: ALBUTEROL SULFATE 2.5 MG/0.5 ML INH NEB SOLN NEB PRN (18:20)
--- NOTE | 2020-11-17 18:25 | IPNPDOC ---
Date Seen The patient was seen on 11/17/20. Progress Note SUBJECTIVE: Patient had some difficulty with ambulation, see PT note. Initially wanted to be discharged but later changed her mind. Denies incr SOB, fevers, chills, n/v/d. OBJECTIVE: VITAL SIGNS: Please see below PHYSICAL EXAMINATION: CONSTITUTIONAL: No acute distress, resting comfortably, AAO x 3 EYES: PERRLA, EOM intact HENT, MOUTH: Normocephalic, atraumatic, moist mucous membranes, NC in place NECK: SUPPLE, no JVD, no lymphadenopathy, no carotid bruit CV: Regular rate and rhythm, S1S2 normal, no murmurs/rubs/gallops RESPIRATORY: Clear to auscultation bilaterally, no rales/rhonchi/wheezes GI: BS positive in 4 quadrants, soft, nontender, nondistended, no rebound or guarding, no organomegaly : Deferred MUSCULOSKELETAL: Normal ROM. No cyanosis, clubbing, swelling, joint deformity, extremity edema INTEGUMENTARY: Intact, no rashes, no lesions, no erythema NEUROLOGIC: Cranial Nerves II-XII are intact, no focal deficits PSYCHIATRIC: Mood and affect are normal CURRENT MEDICATIONS: Please see below LABORATORY DATA: Please see below IMAGING: No new ASSESSMENT: 75-year-old female admitted for acute on chronic COPD exacerbation, questionable pneumonia. #Acute on Chronic COPD exacerbation -Lung improved, CTAB on 2 L NC which is home amount (2-4L) -Patient has a history of noncompliance with medications, continues to smoke; last cigarette prior to admission. Frequently leaves AMA prior to completion of antibiotic course. -Chest x-ray with persistent, not new, ?infiltrates and rib fracture (noted on previous imaging) -Procalcitonin low so stopped abx -Stopped IV methylprednisolone -C/w PO steroids, nebulizers ATC and PRN. Monitor O2 with activity #Deconditioning 2/2 to acute on chronic respiratory failure, COPD exacerbation -PT: Patient reports being very fatigued but with increased encouragement cooperates to get OOB and stand briefly; however, does not ambulate at this time; pt voices being interested in home PT when DC home.Current Therapy Needs 3-5 More Sessions. Discharge Recommendations : Home w/Services # DM type II -Hyperglycemia better controlled but with steroids may need additional treatment -Continue Levemir 20 units subcu daily. -FS ac/hs, ISS, Consistent carb diet. #HTN -Stable. Monitor BP in setting of above. Continue lisinopril. 2 g sodium diet. #Chronic CHF, systolic: BNP 8050 -Last echo on file EF 45-50% -Monitor fluid balance, I's and O's, urinary output -Patient appears euvolemic on exam #Hyperlipidemia -Continue atorvastatin 40 mg nightly #Hypothyroidism -Continue home levothyroxine #Anxiety/depression -Continue home duloxetine and as needed hydroxyzine #PUlmonary nodule -CT chest finding: Patient with history of CT chest in September that showed right- sided pulmonary nodules with recommendations for interval follow-up 3 to 6 months. At present patient is 2 months out. -Consider CT chest pending clinical course-patient was encouraged to follow-up outpatient with her primary care doctors. # Recent NSTEMI II - As noted with chart review last admission. Patient was without interventions. 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 Patient denies any chest pain this admission. Initial troponin not elevated thankfully (Trop 0.04). We will continue to monitor patient -should she have any chest pain proceed for cardiac work-up/recommendations. Resolved: Lactic acidosis DVT prophylaxis: Lovenox subcu DISPOSITION: changed to inpatient status due to PT notes and patient being scared to go home being unstable. C/w PT. Return home at discharge likely with o/p PT also. VS, I&O, 24H, [facility] Vital Signs/I&O Vital Signs Date Time Temp Pulse Resp B/P (MAP) Pulse Ox O2 Delivery O2 Flow Rate FiO2 11/17/20 14:00 97.4 85 18 135/68 (90) 94 Nasal Cannula 1.0 I&O- Last 24 Hours up to 6 AM 11/17/20 06:00 Intake Total 2290 ml Output Total 525 ml Balance 1765 ml Laboratory Data 24H LABS Laboratory Tests 2 11/16/20 19:22: Lactic Acid Level 3.5*H, Magnesium Level 1.7L 11/16/20 21:16: Bedside Glucose (Misc Panel) > 600*H 11/16/20 22:54: Bedside Glucose (Misc Panel) > 600*H 11/16/20 23:12: Lactic Acid Followup at 4 Hours 1.6, Coronavirus (COVID-19)(PCR) NEGATIVE 11/16/20 23:16: Bedside Glucose Confirm (Misc) 710*H 11/17/20 00:01: Bedside Glucose (Misc Panel) > 600*H 11/17/20 01:37: Bedside Glucose (Misc Panel) 448H 11/17/20 03:02: Bedside Glucose (Misc Panel) 311H 11/17/20 05:02: Bedside Glucose (Misc Panel) 231H 11/17/20 05:26: Immature Granulocyte % (Auto) 1.5, Neutrophils (%) (Auto) 93.6H, Lymphocytes (%) (Auto) 3.5L, Monocytes (%) (Auto) 1.1L, Eosinophils (%) (Auto) 0.1, Basophils (%) (Auto) 0.2, Neutrophils # (Auto) 8.7H, Lymphocytes # (Auto) 0.3L, Monocytes # (Auto) 0.1, Eosinophils # (Auto) 0.0, Basophils # (Auto) 0.0, Nucleated Red Blood Cells % (auto) 0.0, Anion Gap 7L, Glomerular Filtration Rate 49.0, Calcium Level 8.2L, Procalcitonin 0.10 11/17/20 11:44: Bedside Glucose (Misc Panel) 181H 11/17/20 16:55: Bedside Glucose (Misc Panel) 272H CBC/BMP Laboratory Tests 11/17/20 05:26 Microbiology Microbiology 11/16/20 Blood Culture, Received Pending Yin Cortez MD Nov 17, 2020 18:25
[2020-11-17] MEDS ORDERED: ATORVASTATIN 20 MG TAB PO SCH (21:00)
[2020-11-17] MEDS ORDERED: GABAPENTIN 100 MG CAP PO SCH (21:00)
[2020-11-18] MEDS ORDERED: predniSONE 20 MG TAB PO SCH (09:00)
--- NOTE | 2020-12-12 22:38 | DS.PDOC ---
Discharge Summary General Date of Admission Nov 17, 2020 at 18:24 Date of Discharge 11/17/20 Attending Physician: Yin Cortez MD Discharge Summary ADMISSION DIAGNOSES: 1. Acute on Chronic COPD exacerbation and presumed pneumonia: 2. Hyperglycemia in patient with type 2 diabetes 3. Lactic acidosis: In setting of COPD exacerbation and presumed metformin use 4. HTN 5. Chronic Diastolic CHF 6. Hyperlipidemia 7. Hypothyroidism 8. Anxiety/depression 9. pulmonary nodules DISCHARGE DIAGNOSES: 1. Acute on Chronic COPD exacerbation 2. Deconditioning 2/2 to acute on chronic respiratory failure, COPD exacerbation 3. DM type II 4. HTN 5. Chronic CHF, systolic 6. Hyperlipidemia 7. Hypothyroidism 8. Anxiety/depression 9. Pulmonary nodule 10. Recent NSTEMI II HOSPITAL COURSE: Ms. Ponce is a 75-year-old female with significant medical history of hypertension, diabetes, current smoker and COPD who presents with complaints of shortness of breath. Patient well-known to service with multiple admissions and leaving AMA. Today, patient does have irritable affect and limitation to exam as she shows some frustration with any detailed questioning. Patient at some point reports " I am frustrated and I do not know". Patient describes her most recent stressor is having trouble with her medications as the pharmacy medication delivery option she has apparently did not send pre selected pill packs with all medications to be taken at one time and rather sent her individual medication. She reports that she does not trust herself to divvy out her medications herself, and thus it has been a few days without her medications being taken. When asked regarding with recent discharge if home health had been set up for her she said that it has not. She does show interest in having home health aide or nurse. She reports her functional status 4 L nasal cannula limitation due to dyspnea on exertion with ambulation around the house. 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 She specifically describes being unable to use his shower and how she has been doing "sponge baths" at home. She endorses increasing cough but fortunately, she describes her sputum is now clear compared to last admissions when she had yellow thick secretions. Patient does endorse wheezing and feeling poorly and thus, she came to ED. She is a poor historian regarding her steroid dosing or regarding her diabetes as well. Patient does admit that she smoked a cigarette prior to coming into the hospital today. She is adamant and describes "smoke has nothing to do with this acting up". Of note, patient + leukocytosis, afebrile, not tachycardic, mildly tachypneic. Chest x-ray "Pleural thickening and peripheral infiltrate persists in the right upper lobe distribution. Right lateral rib fracture and increased markings in the left base again seen. No new infiltrate seen." ABG shows compensation. Initial lab work blood glucose 355, Trop 0.04, hemoglobin 8.4, BNP 8050. Hospital course included IV steroids, ATC nebulizer treatments. She showed some mild improvement later in the day but still was very wheezy, SOB with ambulation - off from her baseline. She later left AMA despite risks being described to er. PROCEDURES: None DISCHARGE MEDICATIONS: Please see below. PHYSICAL EXAMINATION: CONSTITUTIONAL: AAOx3, requesting to leave AMA EYES: PERRLA, EOM intact HENT, MOUTH: Normocephalic, atraumatic, moist mucous membranes, NC in place NECK: SUPPLE, no JVD, no lymphadenopathy, no carotid bruit CV: Regular rate and rhythm, S1S2 normal, no murmurs/rubs/gallops RESPIRATORY: wheezing b/l, no rales/rhonchi GI: BS positive in 4 quadrants, soft, nontender, nondistended, no rebound or guarding, no organomegaly : Deferred MUSCULOSKELETAL: Normal ROM. No cyanosis, clubbing, swelling, joint deformity, extremity edema INTEGUMENTARY: Intact, no rashes, no lesions, no erythema NEUROLOGIC: Cranial Nerves II-XII are intact, no focal deficits PSYCHIATRIC: Mood and affect are normal IMAGING: See chart PROGNOSIS: guarded DISCHARGE CONDITION: still sickly, LEFT AMA TIME SPENT ON DISCHARGE: 35 minutes. Discharge Medications Scheduled Amlodipine Besylate (Amlodipine Besylate) 10 Mg Tablet, 10 MG PO QPM, (Reported) TAKES AT 1700 Atorvastatin Calcium (Atorvastatin Calcium) 40 Mg Tablet, 40 MG PO QHS, (Reported) Clopidogrel Bisulfate (Plavix) 75 Mg Tablet, 75 MG PO DAILY, (Reported) Duloxetine Hcl (Duloxetine HCl) 60 Mg Capsule.dr, 60 MG PO DAILY, (Reported) Fluticasone/Vilanterol (Breo Ellipta 200-25 Mcg INH) 1 Each Blst.w.dev, 1 PUFF INH DAILY, (Reported) Gabapentin (Gabapentin) 100 Mg Capsule, 100 MG PO QHS, (Reported) Hydralazine HCl (Hydralazine HCl) 50 Mg Tablet, 50 MG PO BID, (Reported) 0800, 1700 Insulin Detemir (Levemir) 100 Unit/1 Ml Vial, 20 UNITS SC DAILY, (Reported) TAKES AT 1500 Levothyroxine Sodium (Synthroid) 75 Mcg Tablet, 75 MCG PO DAILY, (Reported) Lisinopril (Lisinopril) 20 Mg Tablet, 20 MG PO BID, (Reported) 0800, 1700 Metformin HCl (Metformin HCl) 500 Mg Tablet, 500 MG PO BID, (Reported) 0800, 1700 Scheduled PRN Hydroxyzine HCl (Hydroxyzine HCl) 10 Mg Tablet, 10 MG PO Q8H PRN for ANXIETY, (Reported) Allergies Coded Allergies: Sulfa (Sulfonamide Antibiotics) (Verified Allergy, Mild, RASH, 10/07/20) bacitracin (Verified Allergy, Mild, RASH, 10/07/20) cortisone (Verified Allergy, Mild, RASH, 10/07/20) neomycin (Verified Allergy, Mild, RASH, 10/07/20) polymyxin B (Verified Allergy, Mild, RASH, 10/07/20) red dye (Unverified Allergy, Mild, rash OCCURRED ONCE WITH CAPSULE MED NO OTHER PROBLEMS WIT, 10/07/20) fluoxetine (Unverified Allergy, Unknown, 10/07/20) tramadol (Unverified Allergy, Unknown, 10/07/20) HAS HAD OXYCODONE BEFORE WITHOUT ISSUE Yin Cortez MD Dec 12, 2020 22:38
== END 2020-11-17 20:20 | disposition home health service (06) | DRG 191 ==
LOC: M ED 15:44 → EDBD 15:44 → M ED INP 15:45 → ENRESERV 20:50 → M MSPAV 22:25 → OBSVTOIN 11-17 18:24
PROVIDERS: ADMIT Internal Medicine; ATTEND Internal Medicine
DX: J44.1 Chronic obstructive pulmonary disease with (acute) exacerbation (principal); E87.2 Acidosis; I50.32 Chronic diastolic (congestive) heart failure; I13.0 Hypertensive heart and chronic kidney disease with heart failure and stage 1 through stage 4 chronic kidney disease, or unspecified chronic kidney disease; J44.0 Chronic obstructive pulmonary disease with (acute) lower respiratory infection; E11.65 Type 2 diabetes mellitus with hyperglycemia; E78.5 Hyperlipidemia, unspecified; E03.9 Hypothyroidism, unspecified; F41.9 Anxiety disorder, unspecified; F32.9 Major depressive disorder, single episode, unspecified; M48.061 Spinal stenosis, lumbar region without neurogenic claudication; E11.51 Type 2 diabetes mellitus with diabetic peripheral angiopathy without gangrene; N18.30 Chronic kidney disease, stage 3 unspecified; E11.22 Type 2 diabetes mellitus with diabetic chronic kidney disease; R91.8 Other nonspecific abnormal finding of lung field; Z85.51 Personal history of malignant neoplasm of bladder; Z98.41 Cataract extraction status, right eye; Z98.42 Cataract extraction status, left eye; Z95.820 Peripheral vascular angioplasty status with implants and grafts; F17.210 Nicotine dependence, cigarettes, uncomplicated; Z91.14 Patient's other noncompliance with medication regimen; Z91.19 Patient's noncompliance with other medical treatment and regimen; Z79.02 Long term (current) use of antithrombotics/antiplatelets; Z79.4 Long term (current) use of insulin; Z79.899 Other long term (current) drug therapy; Z88.2 Allergy status to sulfonamides; Z88.5 Allergy status to narcotic agent; Z88.8 Allergy status to other drugs, medicaments and biological substances; Z91.048 Other nonmedicinal substance allergy status

== ENCOUNTER 2020-11-27 13:20 | Emergency (ER) | payer MEDICARE ==
[~2020-11-27] VITALS: Ht 157.5 cm; Wt 56.8 kg
[~2020-11-27 13:20] MED LIST changes: +ACET500T15 PO
--- NOTE | 2020-11-27 15:05 | REP ---
INDICATION: SOB. COMPARISON: 11/16/2020. TECHNIQUE: Single portable AP view of the chest was performed. FINDINGS: Right superior lateral pleural thickening is unchanged. Scattered interstitial infiltrates bilaterally are unchanged. The heart is not significantly enlarged. There is mild calcification and tortuosity of the thoracic aorta. The mediastinal silhouette is unchanged. IMPRESSION: Stable bilateral interstitial infiltrates with right superolateral pleural thickening. <Electronically signed by Boy Barrios > 11/27/20 1141
[2020-11-27 17:50] VITALS: BP 164/86
== END 2020-11-27 17:54 | disposition home or self-care (01) ==
LOC: EDBD 13:20 → M ED 13:20
DX: J44.0 Chronic obstructive pulmonary disease with (acute) lower respiratory infection (principal); I50.9 Heart failure, unspecified; E11.9 Type 2 diabetes mellitus without complications; I10 Essential (primary) hypertension; N18.6 End stage renal disease; F17.200 Nicotine dependence, unspecified, uncomplicated; Z79.4 Long term (current) use of insulin; Z79.899 Other long term (current) drug therapy; Z99.81 Dependence on supplemental oxygen; Z88.2 Allergy status to sulfonamides; Z88.1 Allergy status to other antibiotic agents; Z88.5 Allergy status to narcotic agent; Z88.8 Allergy status to other drugs, medicaments and biological substances; Z91.02 Food additives allergy status

== ENCOUNTER 2020-11-28 08:50 | Inpatient (IN) | payer MEDICARE ==
[~2020-11-28] VITALS: Ht 157.5 cm; Wt 56.8 kg
[2020-11-28] MEDS ORDERED: NICOTINE 21MG/24HR 1 EA TRANSDERMAL TD SCH (09:00)
[2020-11-28] MEDS ORDERED: DULoxetine 30MG CAPSULE (CYMBALTA) PO SCH (09:00)
[2020-11-28] MEDS ORDERED: CLOPIDOGREL 75 MG TAB PO SCH (09:00)
[2020-11-28] MEDS ORDERED: COMBIVENT RESPIMAT 100-20MCG INHALER 4GM INH STA (09:03)
[2020-11-28] MEDS ORDERED: predniSONE 20 MG TAB PO ONE (09:05)
[2020-11-28 09:34] LABS: VENOUS BASE EXCESS 2.8 (-2.0-2.0); VENOUS HCO3 27.6 MEQ/L (23.0-27.0); VENOUS O2 SATURATION 90.5 % (60.0-80.0); VENOUS PARTIAL PRESSURE CO2 43.6 mmHg (38.0-50.0); VENOUS STANDARD HCO3 26.8 MEQ/L
--- NOTE | 2020-11-28 09:36 | REP ---
INDICATION: DYSPNEA/COUGH. COMPARISON: 11/27/2020. TECHNIQUE: Single portable AP view of the chest was performed. FINDINGS: Pleural and parenchymal opacity superiorly on the right is stable. There is bibasilar interstitial opacity which is mildly improved in the right base. The remainder of the study is unchanged. IMPRESSION: Mild improvement right lung base. <Electronically signed by Boy Barrios > 11/28/20 0990
[2020-11-28 09:40] LABS: BASO # 0.1 10^3/uL (0.0-0.2); BASO % 0.4 % (0.0-1.0); EOS # 0.3 10^3/uL (0.0-0.5); EOS % 2.1 % (0.0-3.0); HEMATOCRIT 31.9 % (36.0-47.0); HEMOGLOBIN 10.2 g/dl (12.0-15.5); LYMPH % 8.4 % (24.0-44.0); MEAN CORPUSCULAR HEMOGLOBIN 31.5 pg (27.0-33.0); MEAN CORPUSCULAR VOLUME 98.5 fl (80.0-96.0); MONO # 0.7 10^3/uL (0.0-0.8); MONO % 5.6 % (2.0-8.0); NEUTROPHILS % 82.9 % (36.0-66.0); PLATELET COUNT, AUTOMATED 190 10^3/uL (150-450); RED BLOOD COUNT 3.24 10^6/uL (4.00-5.40)
--- OUTSIDE RECORDS SUMMARY | 2020-11-28 10:10 | CCD ---
Author Author [facility] Organization [facility] Address Unknown Phone Unavailable Care Team Providers Care Curing Room Worker Name Role Phone Angel Archuleta Unavailable PROBLEMS Type Condition ICD9-CM Code EOF04-OR Code Onset Dates Condition S tatus W/U Status Risk SNOMED Code Notes Problem Bladder tumor D49.4 Active confirmed 690802 006 Problem Bladder mass N32.89 Active confirmed 8136982 04 Problem Bladder cancer C67.9 Active confirmed 22402 6009 Problem Preop testing Z01.818 Active confirmed 91975 9001 Problem Dysuria R30.0 Active confirmed 77315362 Problem History of bladder stone Z87.448 Active confirmed Problem 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, 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 Active confirmed 584433360 Problem Peripheral vascular disease I73.9 Active confirmed 859209401 Problem Anxiety with depression F41.8 Active confirmed 636546122 Problem Current chronic use of systemic steroids Z79.52 Active confirmed 601137442321385 Problem Current smoker F17.200 Active confirmed 7717 6002 Problem Other chronic pain G89.29 Active confirmed 8 6917887 Problem Sacrococcygeal pain M53.3 Active confirmed 812640642 Problem Type 2 diabetes mellitus without complications E11 .9 Active confirmed 719217316 Problem Myalgia, other site M79.18 Active confirmed 06228453 Problem Hypothyroidism, unspecified type E03.9 Active conf irmed 14953249 Problem Pulmonary emphysema, unspecified emphysema type J4 3.9 Active confirmed 19690006 Problem Dyslipidemia E78.5 Active confirmed 2296081 07 Problem Essential hypertension I10 Active confirmed 70557751 ALLERGIES Allergen (clinical drug ingredient) Drug/Non Drug Allergy do cumented on EMR Reaction Allergy Type Onset Date Status bacitracin Bacitracin([facility] Code:[address]-02) Unknown Drug Allergy Active fluoxetine Fluoxetine Unknown Drug Allergy Active red dye Unknown Non Drug Allergy Active Sulfamethoxazole(ND Code:[address]-39) Unknown Drug A llergy Active adhesive tape Unknown Non Drug Allergy Activ e trimethoprim Trimethoprim([facility] Code:[address]-40) Unknown Drug All ergy Active polymyxin B Polymyxin B Sulfate(ND Code:[address]-77) Unknown Dr foreign Allergy Active ENCOUNTERS from 1945 to 2020-11-13 Encounter Location Date Provider Diagnosis [place] [facility] [phone] [place] [address] Oct, Ortiz Geremias IMMUNIZATIONS No Information SOCIAL HISTORY Tobacco Use: Social History Observation Description Date Details (start date - stop date) Current Smoker Sex Assigned At : Social History Observation Description Sex Assigned At Unknown Education: Question Answer Notes Level of Education: Not finished High School Language: Question Answer Notes Languages spoken: Macanese Jainism: Question Answer Notes Jainism No church beliefs that would impact health care. Sexual Hx: Question Answer Notes Had sex in the last 12 months (vaginal, oral, or anal)? No LMP: Hysterectoy Have you ever had an STD? No Alcohol Screening: Question Answer Notes Did you have a drink containing alcohol in the past year? No Points 0 Interpretation Negative Tobacco Use: Question Answer Notes Are you a: current smoker Additional Findings: Tobacco User Moderate cigarette smoker (10-19 cigs/day) Smoking Cessation Information Given Smok ing Cessation classes offered to pt Patient counseled on the dangers of tobacco use and urged to quit: 09/20/2016 How many cigarettes a day do you smoke? 6-10 Are you interested in quitting? Thinking about quitting Counseled the patient on smoking cessation, education [facility] ed 04/23/2018 REASON FOR REFERRAL No Information VITAL SIGNS No information MEDICATIONS Medication SIG (Take, Route, Frequency, Duration) Notes Start Da te End Date Status Optifoam 4"X4" as directed external application daily for 14 da ys Jul, Unknown Levothyroxine Sodium 75 MCG 1 tab Orally Daily for 30 days 1000 Unknown Lisinopril 40 MG take one tablet by mouth @8am Oral Once a day for 30 days Unknown Anoro Ellipta 62.5-25 MCG/INH 1 puff Inhalation Daily 1000 Unknown Nicotine 7 MG/24HR 1 patch to skin Transdermal Once a day for 30 day(s) Jul, Unknown HM Lidocaine Patch 4 % as directed Externally 3 times a day for 30 days June, Unknown Lisinopril 20 MG TAKE ONE TABLET BY MOUTH @8AM and TAKE O NE TABLET @5PM for 28 Active HYDROcodone-Acetaminophen 5-325 MG 2 tablet Orally four time s daily 2-3 days ago Jan, Unknown OxyCONTIN 10 MG (Schedule II Drug) TAKE ONE TABLET BY MOUTH EVERY 12 HOURS MAXIMUM DAILY DOSE 2 TABLETS Oral for 30 Unknown traMADol HCl 50 MG 1 tablet as needed Orally every 6 hrs 1000 Unknown Invokana 300 MG 1 tablet Orally Once a day 1000 Unknown hydrOXYzine HCl 10 MG 1 tablet as needed Oral every 8 hrs for 30 days Unknown Alendronate Sodium 70 MG 1 tablet 30 minutes before t he first food, beverage or medicine of the day with plain water Orally Once weekly for 30 day(s) June, Unknown ProAir HFA 108 (90 Base) MCG/ACT 2 puffs as needed Inh alation every 6 hours as needed 2 days ago Unknown Sertraline HCl 100 MG 1 tablet Orally Daily 1929 Unknown Atorvastatin Calcium 40 MG 1 tablet Orally Once a day for 30 day s 05/25/18@1999 Unknown predniSONE 10 MG take 1/2 tablet by mouth @8a m and take 1/2 tablet by mouth @8pm Oral Twice a day for 30 days Unk nown Gabapentin 100 MG TAKE ONE CAPSULE BY MOUTH @8PM for 28 Active hydrALAZINE HCl 50 MG take one tablet by mouth @8a m and take one tablet by mouth @5pm Oral Twice a day for 30 days Unknown metFORMIN HCl 500 MG 1 tablet with a meal Orally Twice daily for 30 day(s) June, Unknown Amlodipine Besylate 10 MG take one tablet by mouth @5p m Oral Once a day for 30 days Unknown HYDROcodone-Acetaminophen 5-325 MG 1 tablet as needed Orally Every 12 hours for 5 days June, Unknown DULoxetine HCl 60 MG take one capsule by mouth @8am Oral Onc e a day for 30 days Unknown Clopidogrel Bisulfate 75 MG TAKE ONE TABLET BY MOUTH @8AM Oral for 14 Unknown Albuterol Sulfate (2.5 MG/3ML) 0.083% 3 ml Inhalation Three times a day for 30 days 1 week ago Unknown Basaglar KwikPen 100 UNIT/ML inject 30 units subcutane ously once daily Subcutaneous Once daily for 30 days Unknown PROCEDURES No Information RESULTS No Results REASON FOR VISIT CCM? MEDICAL (GENERAL) HISTORY Type Description Date Medical History HTN Medical History Emphysema Medical History Fatigue Medical History Vitamin B 12 deficiency Medical History Vitamin D deficiency Medical History IDDM type 2, HbA1c 01/03/2020 8.7 Medical History Depression Medical History Anxiety Medical History right lung upper lobe mass- BAL showed n egative for malignancy Medical History Echo in 2018, Grade 1LV diastolic disfuc tion, EF: 60% Medical History hypothyroidism Medical History peripheral vascular disease Medical History hyperlipidemia Medical History spinal stenosis: MRI thoracic and lumbar spine in February 2018. Medical History current smoker: Low-dose marcella g screening [12/30/2019] asymmetric density in the right middle lobe. Consider PET-CT at this time. 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 Surgical History hysterectomy Surgical History vaginal tumor removal 2015 Surgical History bilat leg stents placed by Dr Manoj LENZ c irculation Surgical History lung mass removed 2017 Surgical History bilateral cataract surgery 2018 Hospitalization History Pneumonia x1 week [facility] 10/05/15 Hospitalization History Pneumonia X 2weeks at [facility] 10/2015 Hospitalization History surgery related Hospitalization History child Hospitalization History COPD exacerbation February 2020 Hospitalization History [facility] for pneumonia and UTI April 2020 Goals Section No Information Health Concerns No Information MEDICAL EQUIPMENT No Information MENTAL STATUS No Information FUNCTIONAL STATUS No Information ASSESSMENTS No Information PLAN OF TREATMENT Medication Medication Name Sig Start Date Stop Date Gabapentin 100 MG TAKE ONE CAPSULE BY MOUTH @8PM for 28 Lisinopril 20 MG TAKE ONE TABLET BY MOUTH @8AM and TAKE O NE TABLET @5PM for 28 Next Appt Details Provider Name:Angel Archuleta, 2020-12-12 03: 30:00 PM, [address] , , [place], [address], Insurance Providers Payer Name Payer Address Payer Phone Insured Name Patient Relati onship to Insured Coverage Start Date Coverage End Date [facility] [address] [address] [facility] [phone] [employer] MEDIC[employer] Part A and B [address] [facility] [phone] [phone] [employer] [place] self
--- OUTSIDE RECORDS SUMMARY | 2020-11-28 10:10 | CCD ---
Author Author [facility] Organization [facility] Address Unknown Phone Unavailable Care Team Providers Care Manufacturer'S Representative Name Role Phone Es Mcclain Unavailable PROBLEMS Type Condition ICD9-CM Code HHQ38-RX Code Onset Dates Condition S tatus W/U Status Risk SNOMED Code Notes Problem Bladder tumor D49.4 Active confirmed 531728 006 Problem Bladder mass N32.89 Active confirmed 0994536 04 Problem Bladder cancer C67.9 Active confirmed 13747 6009 Problem Preop testing Z01.818 Active confirmed 45810 9001 Problem Dysuria R30.0 Active confirmed 16269779 Problem History of bladder stone Z87.448 Active confirmed Problem 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, 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 Active confirmed 933238730 Problem Peripheral vascular disease I73.9 Active confirmed 716076303 Problem Anxiety with depression F41.8 Active confirmed 035363664 Problem Current chronic use of systemic steroids Z79.52 Active confirmed 089312200407352 Problem Current smoker F17.200 Active confirmed 7717 6002 Problem Other chronic pain G89.29 Active confirmed 8 9697395 Problem Sacrococcygeal pain M53.3 Active confirmed 173822402 Problem Type 2 diabetes mellitus without complications E11 .9 Active confirmed 337203211 Problem Myalgia, other site M79.18 Active confirmed 22415509 Problem Hypothyroidism, unspecified type E03.9 Active conf irmed 14885150 Problem Pulmonary emphysema, unspecified emphysema type J4 3.9 Active confirmed 27516120 Problem Dyslipidemia E78.5 Active confirmed 4907959 07 Problem Essential hypertension I10 Active confirmed 45961734 ALLERGIES Allergen (clinical drug ingredient) Drug/Non Drug Allergy do cumented on EMR Reaction Allergy Type Onset Date Status bacitracin Bacitracin([facility] Code:[address]-78) Unknown Drug Allergy Active fluoxetine Fluoxetine Unknown Drug Allergy Active red dye Unknown Non Drug Allergy Active Sulfamethoxazole([facility] Code:[address]-00) Unknown Drug A llergy Active adhesive tape Unknown Non Drug Allergy Activ e trimethoprim Trimethoprim([facility] Code:[address]-34) Unknown Drug All ergy Active polymyxin B Polymyxin B Sulfate([facility] Code:[address]-95) Unknown Dr foreign Allergy Active ENCOUNTERS from 1945 to 2020-09-26 Encounter Location Date Provider Diagnosis [facility] [place] [address] [phone] [place] [address] Aug, Shanmukha Perabattula IMMUNIZATIONS No Information SOCIAL HISTORY Tobacco Use: Social History Observation Description Date Details (start date - stop date) Current Smoker Sex Assigned At : Social History Observation Description Sex Assigned At Unknown Education: Question Answer Notes Level of Education: Not finished High School Language: Question Answer Notes Languages spoken: Belizean Adventism: Question Answer Notes Adventism No yazidi beliefs that would impact health care. Sexual [...] Counseled the patient on smoking cessation, education [facility] ed 04/23/2018 REASON FOR REFERRAL No Information VITAL SIGNS No information MEDICATIONS Medication SIG (Take, Route, Frequency, Duration) Notes Start Da te End Date Status metFORMIN HCl 500 MG 1 tablet with a meal Orally Twice daily for 30 day(s) June, Unknown Levothyroxine Sodium 75 MCG 1 tab Orally Daily for 30 days 1000 Unknown Alendronate Sodium 70 MG 1 tablet 30 minutes before t he first food, beverage or medicine of the day with plain water Orally Once weekly for 30 day(s) June, Unknown Anoro Ellipta 62.5-25 MCG/INH 1 puff Inhalation Daily 1000 Unknown Optifoam 4"X4" as directed external application daily for 14 da ys Jul, Unknown HM Lidocaine Patch 4 % as directed Externally 3 times a day for 30 days June, Unknown Lisinopril 40 MG take one tablet by mouth @8am Oral Once a day for 30 days Unknown HYDROcodone-Acetaminophen 5-325 MG 2 tablet Orally four time s daily 2-3 days ago Jan, Unknown Nicotine 7 MG/24HR 1 patch to skin Transdermal Once a day for 30 day(s) Jul, Unknown Invokana 300 MG 1 tablet Orally Once a day 1000 Unknown Amlodipine Besylate 10 MG take one tablet by mouth @5p m Oral Once a day for 30 days Unknown HYDROcodone-Acetaminophen 5-325 MG 1 tablet as needed Orally Every 12 hours for 5 days June, Unknown Lisinopril 20 MG 20 MG PO BID for 30 Active predniSONE 10 MG take 1/2 tablet by mouth @8a m and take 1/2 tablet by mouth @8pm Oral Twice a day for 30 days Unk nown hydrALAZINE HCl 50 MG take one tablet by mouth @8a m and take one tablet by mouth @5pm Oral Twice a day for 30 days Unknown traMADol HCl 50 MG 1 tablet as needed Orally every 6 hrs 1000 Unknown OxyCONTIN 10 MG (Schedule II Drug) TAKE ONE TABLET BY MOUTH EVERY 12 HOURS MAXIMUM DAILY DOSE 2 TABLETS Oral for 30 Unknown ProAir HFA 108 (90 Base) MCG/ACT 2 puffs as needed Inh alation every 6 hours as needed 2 days ago Unknown hydrOXYzine HCl 10 MG 1 tablet as needed Oral every 8 hrs for 30 days Unknown Atorvastatin Calcium 40 MG 1 tablet Orally Once a day for 30 day s 05/25/18@1999 Unknown Sertraline HCl 100 MG 1 tablet Orally Daily 1929 Unknown Gabapentin 100 MG 1 capsule Orally Once a day for 14 Active DULoxetine HCl 60 MG take one capsule [...] Information RESULTS No Results REASON FOR VISIT TCM/ACO TCM [facility] d/c 08/17-08/22 Altered Mental Status/Rib fx/UTI MEDICAL (GENERAL) HISTORY Type Description Date Medical [...] bilat leg stents placed by Dr Manoj milian irculation Surgical History lung mass removed 2017 Surgical History bilateral cataract surgery 2018 Hospitalization History Pneumonia x1 week [facility] 10/05/15 Hospitalization History Pneumonia X 2weeks at [facility] 10/2015 Hospitalization History surgery related Hospitalization History child Hospitalization History COPD exacerbation February 2020 Hospitalization History [facility] for pneumonia and UTI April 2020 Goals Section No Information Health Concerns No Information MEDICAL EQUIPMENT No Information MENTAL STATUS No Information FUNCTIONAL STATUS No Information ASSESSMENTS Encounter Date Diagnosis Assessment Notes Treatment Notes Treatm ent Clinical Notes Aug, Other Discussion with patient PLAN OF TREATMENT Medication Medication Name Sig Start Date Stop Date Lisinopril 20 MG 20 MG PO BID for 30 Gabapentin 100 MG 1 capsule Orally Once a day for 14 Insurance Providers Payer Name Payer Address Payer Phone Insured Name Patient Relati onship to Insured Coverage Start Date Coverage End Date [facility] [address] [address] [facility] [phone] COUTURE,ELA JEREMY self MEDICARE Part A and B [address] [facility] [address] [phone] COUTURE,ELA JEREMY self
--- OUTSIDE RECORDS SUMMARY | 2020-11-28 10:10 | CCD ---
Author Author [facility] Organization [facility] Address Unknown Phone Unavailable Care Team Providers Care House Detective Name Role Phone Es Mcclian Unavailable PROBLEMS Type Condition ICD9-CM Code WCT32-GO Code Onset Dates Condition S tatus W/U Status Risk SNOMED Code Notes Problem Bladder tumor D49.4 Active confirmed 367788 006 Problem Bladder mass N32.89 Active confirmed 0146313 04 Problem Bladder cancer C67.9 Active confirmed 22951 6009 Problem Preop testing Z01.818 Active confirmed 14878 9001 Problem Dysuria R30.0 Active confirmed 81707718 Problem History of bladder stone Z87.448 Active confirmed Problem 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, 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 Active confirmed 148928055 Problem Peripheral vascular disease I73.9 Active confirmed 524403075 Problem Anxiety with depression F41.8 Active confirmed 340916432 Problem Current chronic use of systemic steroids Z79.52 Active confirmed 013325380252444 Problem Current smoker F17.200 Active confirmed 7717 6002 Problem Other chronic pain G89.29 Active confirmed 8 4243296 Problem Sacrococcygeal pain M53.3 Active confirmed 125728807 Problem Type 2 diabetes mellitus without complications E11 .9 Active confirmed 816388452 Problem Myalgia, other site M79.18 Active confirmed 53846793 Problem Hypothyroidism, unspecified type E03.9 Active conf irmed 14870343 Problem Pulmonary emphysema, unspecified emphysema type J4 3.9 Active confirmed 25507018 Problem Dyslipidemia E78.5 Active confirmed 6225223 07 Problem Essential hypertension I10 Active confirmed 47000999 ALLERGIES Allergen (clinical drug ingredient) Drug/Non Drug Allergy do cumented on EMR Reaction Allergy Type Onset Date Status bacitracin Bacitracin([facility] Code:[address]-03) Unknown Drug Allergy Active fluoxetine Fluoxetine Unknown Drug Allergy Active red dye Unknown Non Drug Allergy Active Sulfamethoxazole([facility] Code:[address]-85) Unknown Drug A llergy Active adhesive tape Unknown Non Drug Allergy Activ e trimethoprim Trimethoprim([facility] Code:[address]-96) Unknown Drug All ergy Active polymyxin B Polymyxin B Sulfate([facility] Code:[address]-53) Unknown Dr foreign Allergy Active ENCOUNTERS from 1945 to 2020-09-01 Encounter Location Date Provider Diagnosis [facility] [place] [address] [phone] [place] [address] Aug, Shanmukha Perabattula IMMUNIZATIONS No Information SOCIAL HISTORY Tobacco Use: Social History Observation Description Date Details (start date - stop date) Current Smoker Sex Assigned At : Social History Observation Description Sex Assigned At Unknown Education: Question Answer Notes Level of Education: Not finished High School Language: Question Answer Notes Languages spoken: Malagasy Caodaism: Question Answer Notes Caodaism No mosque beliefs that would impact health care. Sexual [...] the patient on smoking cessation, education [facility] ed 04/23/2018 REASON FOR REFERRAL No Information VITAL SIGNS No information MEDICATIONS Medication SIG (Take, Route, Frequency, Duration) Notes Start Da te End Date Status Lisinopril 40 MG take one tablet by mouth @8am Oral Once a day for 30 days Unknown HYDROcodone-Acetaminophen 5-325 MG 2 tablet Orally four times da arthur Jan, Unknown metFORMIN HCl 500 MG 1 tablet with a meal Orally Twice daily for 30 day(s) June, Unknown Levothyroxine Sodium 75 MCG 1 tab Orally Daily for 30 days Unknown Nicotine 7 MG/24HR 1 patch to skin Transdermal Once a day for 30 day(s) Jul, Unknown Optifoam 4"X4" as directed external application daily for 14 da ys Jul, Unknown HM Lidocaine Patch 4 % as directed Externally 3 times a day for 30 days June, Unknown OxyCONTIN 10 MG (Schedule II Drug) TAKE ONE TABLET BY MOUTH EVERY 12 HOURS MAXIMUM DAILY DOSE 2 TABLETS Oral for 30 Unknown Invokana 300 MG 1 tablet Orally Once a day Unknown Amlodipine Besylate 10 MG take one tablet by mouth @5p m Oral Once a day for 30 days Unknown Gabapentin 100 MG 1 capsule Orally Once a day for 30 day(s) June, Unknown Atorvastatin Calcium 40 MG 1 tablet Orally Once a day for 30 days Unknown ProAir HFA 108 (90 Base) MCG/ACT 2 puffs as needed Inh alation every 6 hours as needed Unknown hydrALAZINE HCl 50 MG take one tablet by mouth @8a m and take one tablet by mouth @5pm Oral Twice a day for 30 days Unknown traMADol HCl 50 MG 1 tablet as needed Orally every 6 hrs Unknown predniSONE 10 MG take 1/2 tablet by mouth @8a m and take 1/2 tablet by mouth @8pm Oral Twice a day for 30 days Unk nown Anoro Ellipta 62.5-25 MCG/INH 1 puff Inhalation Daily Unknown hydrOXYzine HCl 10 MG 1 tablet as needed Oral every 8 hrs for 30 days Unknown Alendronate Sodium 70 MG 1 tablet 30 minutes before t he first food, beverage or medicine of the day with plain water Orally Once weekly for 30 day(s) June, Unknown Sertraline HCl 100 MG 1 tablet Orally Daily Unknown HYDROcodone-Acetaminophen 5-325 MG 1 tablet as [...] Three times a day for 30 days Unknown Basaglar KwikPen 100 UNIT/ML inject 30 units subcutane ously once daily Subcutaneous Once daily for 30 days Unknown PROCEDURES No Information RESULTS No Results REASON FOR VISIT principal product manager called MEDICAL (GENERAL) HISTORY Type Description Date Medical [...] c irculation Surgical History lung mass removed 2018 Surgical History bilateral cataract surgery 2018 Hospitalization History Pneumonia x1 week [facility] 10/05/15 Hospitalization History Pneumonia X 2weeks at [facility] 10/2015 Hospitalization History surgery related Hospitalization History child Hospitalization History COPD exacerbation February 2020 Hospitalization History [facility] for pneumonia and UTI April 2020 Goals Section No Information Health Concerns No Information MEDICAL EQUIPMENT No Information MENTAL STATUS No Information FUNCTIONAL STATUS No Information ASSESSMENTS No Information PLAN OF TREATMENT No Information Insurance Providers Payer Name Payer Address Payer Phone Insured Name Patient Relati onship to Insured Coverage Start Date Coverage End Date MEDICARE Part A and B [address] [facility] [phone] COUTURE,ELA JEREMY self [employer] [address] [address] [facility] [phone] COUTURE,ELA JEREMY self
[2020-11-28 10:12] LABS: ALBUMIN 2.4 GM/DL (3.2-5.2); ALT/SGPT 22 U/L (12-78); BILIRUBIN,DIRECT < 0.1 MG/DL (0.0-0.2); BILIRUBIN,TOTAL 0.2 MG/DL (0.2-1.0); BLOOD UREA NITROGEN 19 MG/DL (7-18); CALCIUM LEVEL 8.4 MG/DL (8.8-10.2); CARBON DIOXIDE LEVEL 28 MEQ/L (21-32); CHLORIDE LEVEL 109 MEQ/L (98-107); CK-MB VALUE MASS 4.1 NG/ML (<3.6); CPK CREATINE PHOSPHOKINASE 65 U/L (26-192); CREATININE FOR GFR 0.88 MG/DL (0.55-1.30); GLOMERULAR FILTRATION RATE > 60.0 (>39); GLUCOSE, FASTING 334 MG/DL (70-100); MB/CK RELATIVE INDEX 6.31 (< OR =4); NT-PRO BNP 14675 PG/ML (<450); POTASSIUM SERUM 4.4 MEQ/L (3.5-5.1); SODIUM LEVEL 142 MEQ/L (136-145); TOTAL PROTEIN 5.3 GM/DL (6.4-8.2); TROPONIN I 0.05 NG/ML (< 0.10)
--- OUTSIDE RECORDS SUMMARY | 2020-11-28 10:14 | CCD ---
Author Author [facility] Organization [facility] Address Unknown Phone Unavailable Care Team Providers Care Cook Syrup Maker Name Role Phone Freddie WANG MD Unavailable Unavailable Freddie WANG MD Unavailable Unavailable Freddie WANG MD Unavailable Unavailable Selene Cummings MD Unavailable Unavailable Selene Cummings MD Unavailable Unavailable Selene Cummings MD Unavailable Unavailable Selene Cummings MD Unavailable Unavailable Selene Cummings MD Unavailable Unavailable Selene Cummings MD Unavailable Unavailable Selene Cummings MD Unavailable Unavailable Selene Cummings MD Unavailable Unavailable Dombek-Lang, V Zhanna MD Unavailable Unavailable Dombek-Lang, V Zhanna MD Unavailable Unavailable Dombek-Lang, V Zhanna MD Unavailable Unavailable Dombek-Lang, V Zhanna MD Unavailable Unavailable Dombek-Lang, V Zhanna MD Unavailable Unavailable Dombek-Lang, V Zhanna MD Unavailable Unavailable Dombek-Lang, V Zhanna MD Unavailable Unavailable Dombek-Lang, V Zhanna MD Unavailable Unavailable Dombek-Lang, V Zhanna MD Unavailable Unavailable Dombek-Lang, V Zhanna MD Unavailable Unavailable Dombek-Lang, V Zhanna MD Unavailable Unavailable Dombek-Lang, V Zhanna MD Unavailable Unavailable Dombek-Lang, V Zhanna MD Unavailable Unavailable Dombek-Lang, V Zhanna MD Unavailable Unavailable Dombek-Lang, V Zhanna MD Unavailable Unavailable Dombek-Lang, V Zhanna MD Unavailable Unavailable Dombek-Lang, V Zhanna MD Unavailable Unavailable Dombek-Lang, V Zhanna MD Unavailable Unavailable Dombek-Lang, V Zhanna MD Unavailable Unavailable Dombek-Lang, V Zhanna MD Unavailable Unavailable Dombek-Lang, V Zhanna MD Unavailable Unavailable Dombek-Lang, V Zhanna MD Unavailable Unavailable Dombek-Lang, V Zhanna MD Unavailable Unavailable Dombek-Lang, V Zhanna MD Unavailable Unavailable Dombek-Lang, V Zhanna MD Unavailable Unavailable Dombek-Lang, V Zhanna MD Unavailable Unavailable Dombek-Lang, V Zhanna MD Unavailable Unavailable Dombek-Lang, V Zhanna MD Unavailable Unavailable Dombek-Lang, V Zhanna MD Unavailable Unavailable Dombek-Lang, V Zhanna MD Unavailable Unavailable Dombek-Lang, V Zhanna MD Unavailable Unavailable Nelly HOLLAND MD Unavailable Unavailable Nelly HOLLAND MD Unavailable Unavailable Nelly HOLLAND MD Unavailable Unavailable Nelly HOLLAND MD Unavailable Unavailable Nelly HOLLAND MD Unavailable Unavailable Nelly HOLLAND MD Unavailable Unavailable Nelly HOLLAND MD Unavailable Unavailable Nelly HOLLAND MD Unavailable Unavailable Nelly HOLLAND MD Unavailable Unavailable Nelly HOLLAND MD Unavailable Unavailable Nelly HOLLAND MD Unavailable Unavailable Nelly HOLLAND MD Unavailable Unavailable Nelly HOLLAND MD Unavailable Unavailable Nelly HOLLAND MD Unavailable Unavailable Nelly HOLLAND MD Unavailable Unavailable Nelly HOLLAND MD Unavailable Unavailable Nelly HOLLAND MD Unavailable Unavailable Nelly HOLLAND MD Unavailable Unavailable Nelly HOLLAND MD Unavailable Unavailable Nelly HOLLAND MD Unavailable Unavailable Nelly HOLLAND MD Unavailable Unavailable Nelly HOLLAND MD Unavailable Unavailable Nelly HOLLAND MD Unavailable Unavailable Nelly HOLLAND MD Unavailable Unavailable Nelly HOLLAND MD Unavailable Unavailable Nelly HOLLAND MD Unavailable Unavailable Nelly HOLLAND MD Unavailable Unavailable Nelly HOLLAND MD Unavailable Unavailable Nelly HOLLAND MD Unavailable Unavailable Nelly HOLLAND MD Unavailable Unavailable Nelly HOLLAND MD Unavailable Unavailable Nelly HOLLAND MD Unavailable Unavailable Nelly HOLLAND MD Unavailable Unavailable Nelly HOLLAND MD Unavailable Unavailable Nelly HOLLAND MD Unavailable Unavailable Nelly HOLLAND MD Unavailable Unavailable Nelly HOLLAND MD Unavailable Unavailable Nelly HOLLAND MD Unavailable Unavailable Nelly HOLLAND MD Unavailable Unavailable Nelly HOLLAND MD Unavailable Unavailable Nelly HOLLAND MD Unavailable Unavailable PHYSICIAN, OTHER Unavailable Unavailable SUNG, HO DO Unavailable +[phone] SUNG, HO DO Unavailable +011 SUNG, HO DO Unavailable +011 SUNG, HO DO Unavailable +011 SUNG, HO DO Unavailable +011 SUNG, HO DO Unavailable +011 SUNG, HO DO Unavailable +011 SUNG, HO DO Unavailable +011 SUNG, HO DO Unavailable +011 SUNG, HO DO Unavailable +011 SUNG, HO DO Unavailable +011 SUNG, HO DO Unavailable +011 SUNG, HO DO Unavailable +011 SUNG, HO DO Unavailable +011 Nelly BECKETT Unavailable Unavailable SUJIT, L JONES PA Unavailable Unavailable SUJIT, L JONES PA Unavailable Unavailable SUJIT, L JONES PA Unavailable Unavailable SUJIT, L JONES PA Unavailable Unavailable SUJIT, L JONES PA Unavailable Unavailable SUJIT, L JONES PA Unavailable Unavailable SUJIT, L JONES PA Unavailable Unavailable SUJIT, L JONES PA Unavailable Unavailable SUJIT, L JONES PA Unavailable Unavailable SUJIT, L JONES PA Unavailable Unavailable SUJIT, L JONES PA Unavailable Unavailable SUJIT, L JONES PA Unavailable Unavailable SUJIT, L JONES PA Unavailable Unavailable SUJIT, L JONES PA Unavailable Unavailable SUJIT, L JONES PA Unavailable Unavailable SUJIT, L JONES PA Unavailable Unavailable SUJIT, L JONES PA Unavailable Unavailable SUJIT, L JONES PA Unavailable Unavailable SUJIT, L JONES PA Unavailable Unavailable SUJIT, L JONES PA Unavailable Unavailable SUJIT, L JONES PA Unavailable Unavailable CARMEN DAVIS Unavailable Unavailable Pleskach, Chelly FAST FOOD CREW LEAD Unavailable Unavailable Pleskach, Chelly FAST FOOD CREW LEAD Unavailable Unavailable Pleskach, Chelly FAST FOOD CREW LEAD Unavailable Unavailable Pleskach, Chelly FAST FOOD CREW LEAD Unavailable Unavailable Pleskach, Chelly FAST FOOD CREW LEAD Unavailable Unavailable Pleskach, Chelly FAST FOOD CREW LEAD Unavailable Unavailable Pleskach, Chelly FAST FOOD CREW LEAD Unavailable Unavailable Pleskach, Chelly FAST FOOD CREW LEAD Unavailable Unavailable Pleskach, Chelly FAST FOOD CREW LEAD Unavailable Unavailable Pleskach, Chelly FAST FOOD CREW LEAD Unavailable Unavailable Pleskach, Chelly FAST FOOD CREW LEAD Unavailable Unavailable Pleskach, Chelly FAST FOOD CREW LEAD Unavailable Unavailable Pleskach, Chelly FAST FOOD CREW LEAD Unavailable Unavailable Pleskach, Chelly FAST FOOD CREW LEAD Unavailable Unavailable Pleskach, Chelly FAST FOOD CREW LEAD Unavailable Unavailable Pleskach, Chelly FAST FOOD CREW LEAD Unavailable Unavailable Pleskach, Chelly FAST FOOD CREW LEAD Unavailable Unavailable Pleskach, Chelly FAST FOOD CREW LEAD Unavailable Unavailable Pleskach, Chelly FAST FOOD CREW LEAD Unavailable Unavailable Pleskach, Chelly FAST FOOD CREW LEAD Unavailable Unavailable Pleskach, Chelly FAST FOOD CREW LEAD Unavailable Unavailable Pleskach, Chelly FAST FOOD CREW LEAD Unavailable Unavailable Pleskach, Chelly FAST FOOD CREW LEAD Unavailable Unavailable Pleskach, Chelly FAST FOOD CREW LEAD Unavailable Unavailable Pleskach, Chelly FAST FOOD CREW LEAD Unavailable Unavailable Pleskach, Chelly FAST FOOD CREW LEAD Unavailable Unavailable Pleskach, Chelly FAST FOOD CREW LEAD Unavailable Unavailable Pleskach, Chelly FAST FOOD CREW LEAD Unavailable Unavailable Pleskach, Chelly FAST FOOD CREW LEAD Unavailable Unavailable Pleskach, Chelly FAST FOOD CREW LEAD Unavailable Unavailable Pleskach, Chelly FAST FOOD CREW LEAD Unavailable Unavailable Pleskach, Chelly FAST FOOD CREW LEAD Unavailable Unavailable Pleskach, Chelly FAST FOOD CREW LEAD Unavailable Unavailable Pleskach, Chelly FAST FOOD CREW LEAD Unavailable Unavailable Pleskach, Chelly FAST FOOD CREW LEAD Unavailable Unavailable Pleskach, Chelly FAST FOOD CREW LEAD Unavailable Unavailable Pleskach, Chelly FAST FOOD CREW LEAD Unavailable Unavailable Pleskach, Chelly FAST FOOD CREW LEAD Unavailable Unavailable Pleskach, Chelly FAST FOOD CREW LEAD Unavailable Unavailable Pleskach, Chelly FAST FOOD CREW LEAD Unavailable Unavailable Pleskach, Chelly FAST FOOD CREW LEAD Unavailable Unavailable Pleskach, Chelly FAST FOOD CREW LEAD Unavailable Unavailable AMEZQUITA, ANSHUL KWABENA FAST FOOD CREW LEAD-C, MSN Unavailable Unavailab le AMEZQUITA, ANSHUL KWABENA FAST FOOD CREW LEAD-C, MSN Unavailable Unavailab le AMEZQUITA, ANSHUL KWABENA FAST FOOD CREW LEAD-C, MSN Unavailable Unavailab le AMEZQUITA, ANSHUL KWABENA FAST FOOD CREW LEAD-C, MSN Unavailable Unavailab le AMEZQUITA, ANSHUL KWABENA FAST FOOD CREW LEAD-C, MSN Unavailable Unavailab le AMEZQUITA, ANSHUL KWABENA FAST FOOD CREW LEAD-C, MSN Unavailable Unavailab le AMEZQUITA, ANSHUL KWABENA FAST FOOD CREW LEAD-C, MSN Unavailable Unavailab le AMEZQUITA, ANSHUL KWABENA FAST FOOD CREW LEAD-C, MSN Unavailable Unavailab le AMEZQUITA, ANSHUL KWABENA FAST FOOD CREW LEAD-C, MSN Unavailable Unavailab le AMEZQUITA, ANSHUL KWABENA FAST FOOD CREW LEAD-C, MSN Unavailable Unavailab le AMEZQUITA, ANSHUL KWABENA FAST FOOD CREW LEAD-C, MSN Unavailable Unavailab le AMEZQUITA, ANSHUL KWABENA FAST FOOD CREW LEAD-C, MSN Unavailable Unavailab le AMEZQUITA, ANSHLU KWABENA FAST FOOD CREW LEAD-C, MSN Unavailable Unavailab le AMEZQUITA, ANSHUL KWABENA FAST FOOD CREW LEAD-C, MSN Unavailable Unavailab le AMEZQUITA, ANSHUL KWABENA FAST FOOD CREW LEAD-C, MSN Unavailable Unavailab le AMEZQUITA, ANSHUL KWABENA FAST FOOD CREW LEAD-C, MSN Unavailable Unavailab le AMEZQUITA, ANSHUL KWABENA FAST FOOD CREW LEAD-C, MSN Unavailable Unavailab le AMEZQUITA, ANSHUL KWABENA FAST FOOD CREW LEAD-C, MSN Unavailable Unavailab le AMEZQUITA, ANSHUL KWABENA FAST FOOD CREW LEAD-C, MSN Unavailable Unavailab le AMEZQUITA, ANSHUL KWABENA FAST FOOD CREW LEAD-C, MSN Unavailable Unavailab le AMEZQUITA, ANSHUL KWABENA FAST FOOD CREW LEAD-C, MSN Unavailable Unavailab le AMEZQUITA, ANSHUL KWABENA FAST FOOD CREW LEAD-C, MSN Unavailable Unavailab le AMEZQUITA, ANSHUL KWABENA FAST FOOD CREW LEAD-C, MSN Unavailable Unavailab le AMEZQUITA, ANSHUL KWABENA FAST FOOD CREW LEAD-C, MSN Unavailable Unavailab le AMEZQUITA, ANSHUL KWABENA FAST FOOD CREW LEAD-C, MSN Unavailable Unavailab le AMEZQUITA, ANSHUL KWABENA FAST FOOD CREW LEAD-C, MSN Unavailable Unavailab le AMEZQUITA, ANSHUL KWABENA FAST FOOD CREW LEAD-C, MSN Unavailable Unavailab le AMEZQUITA, ANSHUL KWABENA FAST FOOD CREW LEAD-C, MSN Unavailable Unavailab le AMEZQUITA, ANSHUL KWABENA FAST FOOD CREW LEAD-C, MSN Unavailable Unavailab le AMEZQUITA, ANSHUL KWABENA FAST FOOD CREW LEAD-C, MSN Unavailable Unavailab le AMEZQUITA, ANSHUL KWABENA FAST FOOD CREW LEAD-C, MSN Unavailable Unavailab le AMEZQUITA, ANSHUL KWABENA FAST FOOD CREW LEAD-C, MSN Unavailable Unavailab le AMEZQUITA, ANSHUL KWABENA FAST FOOD CREW LEAD-C, MSN Unavailable Unavailab le AMEZQUITA, ANSHUL KWABENA FAST FOOD CREW LEAD-C, MSN Unavailable Unavailab le AMEZQUITA, ANSHUL KWABENA FAST FOOD CREW LEAD-C, MSN Unavailable Unavailab le AMEZQUITA, ANSHUL KWABENA FAST FOOD CREW LEAD-C, MSN Unavailable Unavailab le AMEZQUITA, ANSHUL KWABENA FAST FOOD CREW LEAD-C, MSN Unavailable Unavailab le AMEZQUITA, ANSHUL KWABENA FAST FOOD CREW LEAD-C, MSN Unavailable Unavailab le AMEZQUITA, ANSHUL KWABENA FAST FOOD CREW LEAD-C, MSN Unavailable Unavailab le AMEZQUITA, ANSHUL KWABENA FAST FOOD CREW LEAD-C, MSN Unavailable Unavailab le AMEZQUITA, ANSHUL KWABENA FAST FOOD CREW LEAD-C, MSN Unavailable Unavailab le AMEZQUITA, ANSHUL KWABENA FAST FOOD CREW LEAD-C, MSN Unavailable Unavailab le AMEZQUITA, ANSHUL KWABENA FAST FOOD CREW LEAD-C, MSN Unavailable Unavailab le AMEZQUITA, ANSHUL KWABENA FAST FOOD CREW LEAD-C, MSN Unavailable Unavailab le AMEZQUITA, ANSHUL KWABENA FAST FOOD CREW LEAD-C, MSN Unavailable Unavailab le Selene Cummings MD Unavailable Unavailable Selene Cummings MD Unavailable Unavailable Selene Cummings MD Unavailable Unavailable Selene Cummings MD Unavailable Unavailable Selene Cummings MD Unavailable Unavailable Dombek-Lang, V Zhanna MD Unavailable Unavailable Dombek-Lang, V Zhanna MD Unavailable Unavailable Dombek-Lang, V Zhanna MD Unavailable Unavailable Dombek-Lang, V Zhanna MD Unavailable Unavailable Dombek-Lang, V Zhanna MD Unavailable Unavailable Dombek-Lang, V Zhanna MD Unavailable Unavailable Dombek-Lang, V Zhanna MD Unavailable Unavailable Dombek-Lang, V Zhanna MD Unavailable Unavailable Dombek-Lang, V Zhanna MD Unavailable Unavailable Dombek-Lang, V Zhanna MD Unavailable Unavailable Dombek-Lang, V Zhanna MD Unavailable Unavailable Dombek-Lang, V Zhanna MD Unavailable Unavailable Dombek-Lang, V Zhanna MD Unavailable Unavailable Dombek-Lang, V Zhanna MD Unavailable Unavailable Dombek-Lang, V Zhanna MD Unavailable Unavailable Dombek-Lang, V Zhanna MD Unavailable Unavailable Dombek-Lang, V Zhanna MD Unavailable Unavailable Dombek-Lang, V Zhanna MD Unavailable Unavailable Dombek-Lang, V Zhanna MD Unavailable Unavailable Dombek-Lang, V Zhanna MD Unavailable Unavailable Dombek-Lang, V Zhanna MD Unavailable Unavailable Dombek-Lang, V Zhanna MD Unavailable Unavailable Dombek-Lang, V Zhanna MD Unavailable Unavailable Dombek-Lang, V Zhanna MD Unavailable Unavailable Dombek-Lang, V Zhanna MD Unavailable Unavailable Dombek-Lang, V Zhanna MD Unavailable Unavailable Dombek-Lang, V Zhanna MD Unavailable Unavailable Dombek-Lang, V Zhanna MD Unavailable Unavailable Dombek-Lang, V Zhanna MD Unavailable Unavailable Dombek-Lang, V Zhanna MD Unavailable Unavailable Dombek-Lang, V Zhanna MD Unavailable Unavailable Dombek-Lang, V Zhanna MD Unavailable Unavailable Dombek-Lang, V Zhanna MD Unavailable Unavailable Dombek-Lang, V Zhanna MD Unavailable Unavailable MEHUL ARAIZA MD Unavailable Unavailable Tamanna Villegas DO Unavailable Unavailable Tamanna Villegas DO Unavailable Unavailable Tamanna Villegas DO Unavailable Unavailable Tamanna Villegas DO Unavailable Unavailable Tamanna Villegas DO Unavailable Unavailable Tamanna Villegas DO Unavailable Unavailable Tamanna Villegas DO Unavailable Unavailable Villegas, B Favio DO Unavailable Unavailable Villegas, B Favio DO Unavailable Unavailable Villegas, B Favio DO Unavailable Unavailable Villegas, B Favio DO Unavailable Unavailable Villegas, B Favio DO Unavailable Unavailable Villegas, B Favio DO Unavailable Unavailable Villegas, B Favio DO Unavailable Unavailable Villegas, B Favio DO Unavailable Unavailable VILLEGAS, DELPHI FAVIO Unavailable Unavailable SEARS, A RASTA DO Unavailable Unavailable SEARS, A RASTA DO Unavailable Unavailable SEARS, A RASTA DO Unavailable Unavailable SEARS, A RASTA DO Unavailable Unavailable SEARS, A RASTA DO Unavailable Unavailable SEARS, A RASTA DO Unavailable Unavailable SEARS, A RASTA DO Unavailable Unavailable SEARS, A RASTA DO Unavailable Unavailable SEARS, A RASTA DO Unavailable Unavailable SEARS, A RASTA DO Unavailable Unavailable SEARS, A RASTA DO Unavailable Unavailable SEARS, A RASTA DO Unavailable Unavailable SEARS, A RASTA DO Unavailable Unavailable SEARS, A RASTA DO Unavailable Unavailable SEARS, A RASTA DO Unavailable Unavailable SEARS, A RASTA DO Unavailable Unavailable SEARS, A RASTA DO Unavailable Unavailable SEARS, A RASTA DO Unavailable Unavailable SEARS, A RASTA DO Unavailable Unavailable SEARS, A RASTA DO Unavailable Unavailable SEARS, A RASTA DO Unavailable Unavailable SEARS, A RASTA DO Unavailable Unavailable SEARS, A RASTA DO Unavailable Unavailable SEARS, A RASTA DO Unavailable Unavailable SEARS, A RASTA DO Unavailable Unavailable SEARS, A RASTA DO Unavailable Unavailable SEARS, A RASTA DO Unavailable Unavailable SEARS, A RASTA DO Unavailable Unavailable SEARS, A RASTA DO Unavailable Unavailable SEARS, A RASTA DO Unavailable Unavailable SEARS, A RASTA DO Unavailable Unavailable SEARS, A RASTA DO Unavailable Unavailable SEARS, A RASTA DO Unavailable Unavailable SEARS, A RASTA DO Unavailable Unavailable SEARS, A RASTA DO Unavailable Unavailable SEARS, A RASTA DO Unavailable Unavailable SEARS, A RASTA DO Unavailable Unavailable SEARS, A RASTA DO Unavailable Unavailable SEARS, A RASTA DO Unavailable Unavailable SEARS, A RASTA DO Unavailable Unavailable SEARS, A RASTA DO Unavailable Unavailable SEARS, A RASAT DO Unavailable Unavailable SEARS, A RASTA DO Unavailable Unavailable SEARS, A RASTA DO Unavailable Unavailable SEARS, A RASTA DO Unavailable Unavailable SEARS, A RASTA DO Unavailable Unavailable SEARS, A RASTA DO Unavailable Unavailable SEARS, A RASTA DO Unavailable Unavailable SUJIT, L JONES PA Unavailable Unavailable SUJIT, L JONES PA Unavailable Unavailable SUJIT, L JONES PA Unavailable Unavailable SUJIT, L JONES PA Unavailable Unavailable SUJIT, L JONES PA Unavailable Unavailable SUJIT, L JONES PA Unavailable Unavailable SUJIT, L JONES PA Unavailable Unavailable SUJIT, L JONES PA Unavailable Unavailable SUJIT, L JONES PA Unavailable Unavailable SUJIT, L JONES PA Unavailable Unavailable SUJIT, L JONES PA Unavailable Unavailable SUJIT, L JONES PA Unavailable Unavailable SUJIT, L JONES PA Unavailable Unavailable SUJIT, L JONES PA Unavailable Unavailable SUJIT, L JONES PA Unavailable Unavailable SUJIT, L JONES PA Unavailable Unavailable SUJIT, L JONES PA Unavailable Unavailable SUJIT, L JONES PA Unavailable Unavailable SUJIT, L JONES PA Unavailable Unavailable SUJIT, L JONES PA Unavailable Unavailable SUJIT, L JONES PA Unavailable Unavailable SUJIT, L JONES PA Unavailable Unavailable Iraheta, L Michelle RPA Unavailable Unavailable Iraheta, L Michelle RPA Unavailable Unavailable Iraheta, L Michelle RPA Unavailable Unavailable Iraheta, L Michelle RPA Unavailable Unavailable Irahtea, L Michelle RPA Unavailable Unavailable Iraheta, L Michelle RPA Unavailable Unavailable Iraheta, L Michelle RPA Unavailable Unavailable Iraheta, L Michelle RPA Unavailable Unavailable Iraheta, L Michelle RPA Unavailable Unavailable Iraheta, L Michelle RPA Unavailable Unavailable Iraheta, L Michelle RPA Unavailable Unavailable Iraheta, L Michelle RPA Unavailable Unavailable Iraheta, L Michelle RPA Unavailable Unavailable Iraheta, L Michelle RPA Unavailable Unavailable Iraheta, L Michelle RPA Unavailable Unavailable Iraheta, L Michelle RPA Unavailable Unavailable Iraheta, L Michelle RPA Unavailable Unavailable Iraheta, L Michelle RPA Unavailable Unavailable Iraheta, L Michelle RPA Unavailable Unavailable Iraheta, L Michelle RPA Unavailable Unavailable Iraheta, L Michelle RPA Unavailable Unavailable Iraheta, L Michelle RPA Unavailable Unavailable Iraheta, L Michelle RPA Unavailable Unavailable Iraheta, L Michelle RPA Unavailable Unavailable Iraheta, L Michelle RPA Unavailable Unavailable Iraheta, L Michelle RPA Unavailable Unavailable Iraheta, L Michelle RPA Unavailable Unavailable Iraheta, L Michelle RPA Unavailable Unavailable Iraheta, L Michelle RPA Unavailable Unavailable Iraheta, L Michelle RPA Unavailable Unavailable Iraheta, L Michelle RPA Unavailable Unavailable Iraheta, L Michelle RPA Unavailable Unavailable Freddie ARAIZA MD Unavailable Unavailable Freddie ARAIZA MD [facility] Unavailable Unavailable DELANEY SO MD Unavailable Unavailable DELANEY SO MD Unavailable Unavailable DELANEY SO MD Unavailable Unavailable DELANEY SO MD Unavailable Unavailable DELANEY SO MD Unavailable Unavailable SODELANEY BUSTILLO MD Unavailable Unavailable SODELANEY BUSTILLO MD Unavailable Unavailable SODELANEY MD Unavailable Unavailable SODELANEY BUSTILLO MD Unavailable Unavailable SODELANEY BUSTILLO MD Unavailable Unavailable Cederstrand, Zenaida Garcia MD Unavailable Unavailable Cederstrand, Zenaida Garcia MD Unavailable Unavailable Cederstrand, Zenaida Garcia MD Unavailable Unavailable Cederstrand, Zenaida Garcia MD Unavailable Unavailable Cederstrand, Zenaida Garcia MD Unavailable Unavailable Cederstrand, Zenaida Garcia MD Unavailable Unavailable Cederstrand, Zenaida Garcia MD Unavailable Unavailable Cederstrand, Zenaida Garcia MD Unavailable Unavailable Cederstrand, Zenaida Garcia MD Unavailable Unavailable Cederstrand, Zenaida Garcia MD Unavailable Unavailable Cederstrand, Zenaida Garcia MD Unavailable Unavailable Cederstrand, Zenaida Garcia MD Unavailable Unavailable Cederstrand, Zenaida Garcia MD Unavailable Unavailable Cederstrand, Zenaida Garcia MD Unavailable Unavailable Cederstrand, Zenaida Garcia MD Unavailable Unavailable Cederstrand, Zenaida Garcia MD Unavailable Unavailable DiVencenzo, Petra DO Unavailable Unavailable DiVencenzo, Petra DO Unavailable Unavailable DiVencenzo, Petra DO Unavailable Unavailable DiVencenzo, Petra DO Unavailable Unavailable DiVencenzo, Petra DO Unavailable Unavailable Demetrio PALMER Unavailable [phone] Demetrio PALMER Unavailable [phone] Demetrio PALMER Unavailable [phone] Demetrio PALMER Unavailable [phone] Demetrio PALMER PETRA Unavailable [phone] MICHAEL WANG MD Unavailable Unavailable Drayden, Noe PA Unavailable Unavailable Drayden, Noe PA Unavailable Unavailable Drayden, Noe PA Unavailable Unavailable Drayden, Noe PA Unavailable Unavailable Drayden, Noe PA Unavailable Unavailable Drayden, Noe PA Unavailable Unavailable Drayden, Noe PA Unavailable Unavailable Drayden, Noe PA Unavailable Unavailable Drayden, Noe PA Unavailable Unavailable Drayden, Noe PA Unavailable Unavailable Drayden, Noe PA Unavailable Unavailable Drayden, Noe PA Unavailable Unavailable Drayden, Noe PA Unavailable Unavailable Drayden, Noe PA Unavailable Unavailable Drayden, Noe PA Unavailable Unavailable Drayden, Noe PA Unavailable Unavailable Drayden, Noe PA Unavailable Unavailable Drayden, Noe PA Unavailable Unavailable [facility], [id number] Unavailable [phone] [facility], [id number] Unavailable [phone] [facility], [id number] Unavailable [phone] [facility], [id number] Unavailable [phone] [facility], [id number] Unavailable [phone] [facility], [id number] Unavailable [phone] [facility], [id number] Unavailable [phone] [facility], [id number] Unavailable [phone] [facility], [id number] Unavailable [phone] [facility], [id number] Unavailable [phone] [facility], [id number] Unavailable [phone] Conway, W Petra RPA-C Unavailable Unavailable Conway, W Petra RPA-C Unavailable Unavailable Conway, W Petra RPA-C Unavailable Unavailable Conway, W Petra RPA-C Unavailable Unavailable Conway, W Petra RPA-C Unavailable Unavailable Conway, W Petra RPA-C Unavailable Unavailable Conway, W Petra RPA-C Unavailable Unavailable Conway, W Petra RPA-C Unavailable Unavailable Conway, W Petra RPA-C Unavailable Unavailable Conway, W Petra RPA-C Unavailable Unavailable Conway, W Petra RPA-C Unavailable Unavailable Conway, W Petra RPA-C Unavailable Unavailable Conway, W Petra RPA-C Unavailable Unavailable Conway, W Petra RPA-C Unavailable Unavailable Conway, W Petra RPA-C Unavailable Unavailable Conway, W Petra RPA-C Unavailable Unavailable Conway, W Petra RPA-C Unavailable Unavailable Re-disclosure Warning The records that you are about to access may contain information from federally-assisted alcohol or drug abuse programs. If such information is present, then the following federally mandated warning applies: This information has been disclosed to you from records protected by federal confidentiality rules (42 CFR part 2). The federal rules prohibit you from making any further disclosure of this information unless further disclosure is expressly permitted by the written consent of the person to whom it pertains or as otherwise permitted by 42 CFR part 2. A general authorization for the release of medical or other information is NOT sufficient for this purpose. The Federal rules restrict any use of the information to criminally investigate or prosecute any alcohol or drug abuse patient.The records that you are about to access may contain highly sensitive health information, the redisclosure of which is protected by Article 27-F of the [facility] Public Health law. If you continue you may have access to information: Regarding HIV / AIDS; Provided by facilities licensed or operated by the [facility] Office of Mental Health; or Provided by the [facility] Office for People With Developmental Disabilities. If such information is present, then the following [facility] mandated warning applies: This information has been disclosed to you from confidential records which are protected by state law. State law prohibits you from making any further disclosure of this information without the specific written consent of the person to whom it pertains, or as otherwise permitted by law. Any unauthorized further disclosure in violation of state law may result in a fine or residential sentence or both. A general authorization for the release of medical or other information is NOT sufficient authorization for further disc losure. Allergies and Adverse Reactions Type Description Substance Reaction Status Data Source(s ) Drug allergy red (food color) red (food color) [facility] Drug allergy cortisone cort[facility]one [facility] Drug allergy polymyxin B polymyxin [facility] Drug allergy fluoxetine [facility]ox[facility] Drug allergy tramadol tramadol [facility] Drug allergy bacitracin bacitracin [facility] Drug allergy neomycin neomycin [facility] Drug allergy SULFA S[facility] Family History Family Member Name Family Member Gender Family Member Status Date o f Status Description Data Source(s) Unknown Male Problem MEDENT ([facility]) () Encounters Encounter Providers Location Date Indications Data Source(s ) [place] [address] [facility] [address] 11/09/2020 12:00:00 AM EDT eCW1 ([facility]) [place] [address] [facility] [address] 08/31/2020 12:00:00 AM EDT eCW1 ([facility]) [place] [address] [facility] [address] 08/23/2020 12:00:00 AM EDT eCW1 ([facility]) [place] [address] [facility] [address] 08/11/2020 12:00:00 AM EDT eCW1 ([facility]) [place] [address] [facility] [address] 08/08/2020 12:00:00 AM EDT eCW1 ([facility]) [place] [address] [facility] [address] 08/04/2020 12:00:00 AM EDT eCW1 ([facility]) [place] [address] [facility] [address] 08/02/2020 12:00:00 AM EDT eCW1 ([facility]) [place] [address] [facility] [address] 07/31/2020 12:00:00 AM EDT eCW1 ([facility]) [place] [address] [facility] [address] 07/18/2020 12:00:00 AM EDT eCW1 ([facility]) [place] [address] [facility] [address] 07/17/2020 12:00:00 AM EDT eCW1 ([facility]) [place] [address] [facility] [address] 07/14/2020 12:00:00 AM EDT eCW1 ([facility]) [place] [address] [facility] [address] 07/14/2020 12:00:00 AM EDT eCW1 ([facility]) [place] [address] [facility] [address] 07/12/2020 12:00:00 AM EDT [facility]) [place] [address] [facility] [address] 07/12/2020 12:00:00 AM EDT [facility] [place] [address] [facility] [address] 07/11/2020 12:00:00 AM EDT [facility]1 [facility] [place] [address] [facility] [address] 06/29/2020 12:00:00 AM EDT [facility]CW1 ([facility] [place] [address] [facility] [address] 06/28/2020 12:00:00 AM EDT eCW1 ([facility]) [place]patient [address] [facility] [address] 06/23/2020 12:00:00 AM EDT eCW1 ([facility]) [place] [address] [facility] [address] 06/19/2020 12:00:00 AM EDT eCW1 ([facility]) Inpatient Attender: GEORGIA DENIS DOAttender : MICHAEL WANG MDAttender: MICHAEL WANG MDAttender: MEHUL ARAIZA MDAttender: MEHUL ARAIZA MDAdmitter: MICHAEL WANG MD ER-2EAST 05/18/2020 07:42:00 PM EDT - 06/11/2020 06:33:00 PM EDT [facility] Patient discharged. Outpatient 05/18/2020 04:36:00 PM EDT Pneumonia , sepsis, needs [facility] Pneumonia, sepsis, needs MRI Emergency Attender: Favio ARNETT ttender: FAVIO VILLEGASAttender: STEVE DAVIS EMERGENCY ROOM-ER 05/18/2020 01:32:00 PM EDT - 05/18/2020 06:10:00 PM EDT [facility] Patient discharged. Outpatient Attender: Favio Villegas DO ER-RAD 05/18/2020 10:45:00 AM EDT [facility] Outpatient Attender: Favio Villegas DOConsultant: Bruce olivas [id number] 05/17/2020 11:52:00 AM EDT [facility] Outpatient Attender: Zhanna Cummings MDConsultant: [facility] [id number] 05/17/2020 05:40:00 AM EDT [facility] Inpatient Attender: Zhanna Cummings MDAdmitter: Zhanna Cummings MD EMERGENCY ROOM-2N 05/16/2020 08:11:00 PM EDT - 05/18/2020 01:31:00 PM EDT [facility] Patient discharged. Outpatient Attender: OTHER PHYSICIANConsultant: [facility] [id number] 05/10/2020 08:50:00 PM EDT [facility] Inpatient Attender: [id number] MEDENT_ 23Attender: Petra Ortiz DOAdmitter: [phone] MEDENT_23 EMERGENCY ROOM-2N 05/10/2020 05:30:00 PM EDT - 05/16/2020 08:10:00 PM EDT [facility] Patient discharged. Outpatient Attender: JONES BECKETT PAConsultant: [facility] [id number] 05/10/2020 02:09:00 PM EDT [facility] Emergency Attender: JONES BECKETT LA EMERGENCY ROOM-EMERG ENCY ROOM 05/10/2020 12:22:00 PM EDT - 05/10/2020 12:22:00 PM EDT [facility] Patient discharged. Outpatient Attender: RASTA Ernandez/[place] 01/04/2020 01:30:00 PM EST MEDENT ([facility] Outpatient Attender: Chelly Irizarry [facility] Main Office 01/03/2020 0 1:30:00 PM EST MEDENT ([facility] Outpatient Attender: Chelly Irizarry [facility] Main Office 12/20/2019 0 1:30:00 PM EST MEDENT ([facility] Outpatient Attender: RASTA Ernandez/[place] 12/15/2019 02:00:00 PM EST MEDENT ([facility] Outpatient Attender: Radha Jones/[place]/ [place] 12/02/2019 11:15:00 AM EDT [facility] ([facility]) Unknown [address] [facility] [address] 11/30/2019 12:00:00 AM EDT eCW1 ([facility]) Outpatient LERAYAZ 11/29/2019 12:02:06 AM EDT [facility] Outpatient Attender: Michelle Jones/[place]/R [place]indl 10/28/2019 11:45:00 AM EDT MEDENT ([facility]) Outpatient Attender: Chelly PENAP Main Office 10/20/2019 0 2:45:00 PM EDT MEDENT ([facility] Emergency Attender: JONES RUIZ EMERGENCY ROOM-ER 04:10:00 PM EST - 02/22/2016 07:48:00 PM [facility] Attender: DELANEY SO MDAdmitter: KATHERIN SO MD EMERGENCY ROOM-2N 01/10/2016 09:39:00 AM EST - 10/13/2015 03:46:00 PM [facility] Outpatient Attender: PAU HOLLAND MD EMERGENCY ROOM-LABOT HPROV 12/27/2015 02:51:00 PM EST - 12/27/2015 02:51:00 PM [facility] Emergency Attender: Petra MACKENZIE EMERGENCY ROOM-ER 1 03:15:00 PM EDT - 11/22/2015 07:20:00 PM [facility] Outpatient Attender: KWABENA CURRAN-C, MSN EMERGENCY RAMSEY [id number] 10/30/2015 01:30:00 PM [facility] Inpatient Attender: Noe Anderson PAAdmitter: PETRA ZUNIGA IN EMERGENCY ROOM-2N 10/19/2015 10:22:00 AM EDT - 10/25/2015 04:15:00 PM [facility] Inpatient Attender: DELANEY SO MDAdmitter: KATHERIN SO MD EMERGENCY ROOM-2N 10/13/2015 03:45:00 PM EDT - 10/19/2015 10:21:00 AM EDT [facility] Immunizations Vaccine Date Status Description Data Source(s) COVID-19 VACCINE Moderna 07/06/2020 12:00:00 AM EDT completed NYSIIS Vaccine Series Complete: NOThis Data was Submitted to [facility] Via [employer]. New in 2011. IIV4 12/15/2019 04:05:00 AM EST completed MEDENT ([facility], ) New in 2011. IIV4 12/14/2019 01:32:00 PM EST completed MEDENT ([facility], ) Medications Medication Brand Name Start Date Product Form Dose Route Admi nistrative Instructions Pharmacy Instructions Status Indications Reaction Description Data Source(s) Nicotine 7 MG/24HR Nicotine 7 MG/24HR 07/28/2020 12:00:00 AM EDT 1.0 {patch_to_skin} active Nicotine 7 MG/24 HR eCW1 ([facility]) Nicotine 7 MG/24HR Nicotine 7 MG/24HR 07/28/2020 12:00:00 AM EDT 1.0 {patch_to_skin} active Nicotine 7 MG/24 HR eCW1 ([facility]) Nicotine 7 MG/24HR Nicotine 7 MG/24HR 07/28/2020 12:00:00 AM EDT 1.0 {patch_to_skin} active Nicotine 7 MG/24 HR eCW1 ([facility]) Nicotine 7 MG/24HR Nicotine 7 MG/24HR 07/28/2020 12:00:00 AM EDT 1.0 {patch_to_skin} active Nicotine 7 MG/24 HR eCW1 ([facility]) Nicotine 7 MG/24HR Nicotine 7 MG/24HR 07/28/2020 12:00:00 AM EDT 1.0 {patch_to_skin} active Nicotine 7 MG/24 HR eCW1 ([facility]) Nicotine 7 MG/24HR Nicotine 7 MG/24HR 07/28/2020 12:00:00 AM EDT 1.0 {patch_to_skin} active Nicotine 7 MG/24 HR eCW1 ([facility]) Nicotine 7 MG/24HR Nicotine 7 MG/24HR 07/28/2020 12:00:00 AM EDT 1.0 {patch_to_skin} active Nicotine 7 MG/24 HR eCW1 ([facility]) Nicotine 7 MG/24HR Nicotine 7 MG/24HR 07/28/2020 12:00:00 AM EDT 1.0 {patch_to_skin} active Nicotine 7 MG/24 HR eCW1 ([facility]) Optifoam 4"X4" UNK 07/18/2020 12:00:00 AM EDT active Optifoam 4"X4" eCW1 ([facility]) Optifoam 4"X4" UNK 07/18/2020 12:00:00 AM EDT active Optifoam 4"X4" eCW1 ([facility]) Optifoam 4"X4" UNK 07/18/2020 12:00:00 AM EDT active Optifoam 4"X4" eCW1 ([facility]) Optifoam 4"X4" UNK 07/18/2020 12:00:00 AM EDT active Optifoam 4"X4" eCW1 ([facility]) Optifoam 4"X4" UNK 07/18/2020 12:00:00 AM EDT active Optifoam 4"X4" eCW1 ([facility]) Optifoam 4"X4" UNK 07/18/2020 12:00:00 AM EDT active Optifoam 4"X4" eCW1 ([facility]) Optifoam 4"X4" Optifoam 4"X4" 07/18/2020 12:00:00 AM EDT active Optifoam 4"X4" eCW1 ([facility]) Optifoam 4"X4" UNK 07/18/2020 12:00:00 AM EDT active Optifoam 4"X4" eCW1 ([facility]) Optifoam 4"X4" UNK 07/18/2020 12:00:00 AM EDT active Optifoam 4"X4" eCW1 ([facility]) Optifoam 4"X4" Optifoam 4"X4" 07/18/2020 12:00:00 AM EDT active Optifoam 4"X4" eCW1 ([facility]) Acetaminophen 325 MG / Hydrocodone Marin trate 5 MG Oral Tablet Hydrocodone- Acetaminophen 5-325 MG Hydrocodone-Acetaminophen 5-325 MG 06/23/2020 12:00:00 AM EDT 1.0 {tablet_as_needed} active Hydrocodone-Acetaminophen 5-325 MG eCW1 ([facility]) gabapentin 100 MG Oral Capsule Gabapentin 100 MG Gabapentin 100 MG 06/23/2020 12:00:00 AM EDT 1.0 {capsule} active G abapentin 100 MG eCW1 ([facility]) Acetaminophen 325 MG / Hydrocodone Marin trate 5 MG Oral Tablet HYDROcodone- Acetaminophen 5-325 MG HYDROcodone-Acetaminophen 5-325 MG 06/23/2020 12:00:00 AM EDT 1.0 {tablet_as_needed} active HYDROcodone-Acetaminophen 5-325 MG eCW1 ([facility]) HM Lidocaine Patch 4 % HM Lidocaine Patch 4 % 06/23/2020 12:00:00 AM E DT active HM Lidocaine Patch 4 % eC W1 ([facility]) Metformin hydrochloride 500 MG Oral Tablet Metformin H Cl 500 MG Metformin HCl 500 MG 06/23/2020 12:00:00 AM EDT 1.0 {tablet_with_a_meal} active Metformin HCl 500 MG eCW1 ([facility]) HM Lidocaine Patch 4 % HM Lidocaine Patch 4 % 06/23/2020 12:00:00 AM E DT active HM Lidocaine Patch 4 % eC W1 ([facility]) gabapentin 100 MG Oral Capsule Gabapentin 100 MG Gabapentin 100 MG 06/23/2020 12:00:00 AM EDT 1.0 {capsule} active G abapentin 100 MG eCW1 ([facility]) Acetaminophen 325 MG / Hydrocodone Marin trate 5 MG Oral Tablet HYDROcodone- Acetaminophen 5-325 MG HYDROcodone-Acetaminophen 5-325 MG 06/23/2020 12:00:00 AM EDT 1.0 {tablet_as_needed} active HYDROcodone-Acetaminophen 5-325 MG eCW1 ([facility]) HM Lidocaine Patch 4 % HM Lidocaine Patch 4 % 06/23/2020 12:00:00 AM E DT active eCW1 ([facility]) Alendronic acid 70 MG Oral Tablet Alendronate Sodium 7 0 MG Alendronate Sodium 70 MG 06/23/2020 12:00:00 AM EDT active eCW1 ([facility]) Acetaminophen 325 MG / Hydrocodone Marin trate 5 MG Oral Tablet Hydrocodone- Acetaminophen 5-325 MG Hydrocodone-Acetaminophen 5-325 MG 06/23/2020 12:00:00 AM EDT 1.0 {tablet_as_needed} active Hydrocodone-Acetaminophen 5-325 MG eCW1 ([facility]) Acetaminophen 325 MG / Hydrocodone Marin trate 5 MG Oral Tablet HYDROcodone- Acetaminophen 5-325 MG HYDROcodone-Acetaminophen 5-325 MG 06/23/2020 12:00:00 AM EDT 1.0 {tablet_as_needed} active HYDROcodone-Acetaminophen 5-325 MG eCW1 ([facility]) HM Lidocaine Patch 4 % HM Lidocaine Patch 4 % 06/23/2020 12:00:00 AM E DT active HM Lidocaine Patch 4 % eC W1 ([facility]) Acetaminophen 325 MG / Hydrocodone Marin trate 5 MG Oral Tablet HYDROcodone- Acetaminophen 5-325 MG HYDROcodone-Acetaminophen 5-325 MG 06/23/2020 12:00:00 AM EDT 1.0 {tablet_as_needed} active HYDROcodone-Acetaminophen 5-325 MG eCW1 ([facility]) Alendronic acid 70 MG Oral Tablet Alendronate Sodium 7 0 MG Alendronate Sodium 70 MG 06/23/2020 12:00:00 AM EDT active Alendronate Sodium 70 MG eCW1 ([facility]) HM Lidocaine Patch 4 % HM Lidocaine Patch 4 % 06/23/2020 12:00:00 AM E DT active HM Lidocaine Patch 4 % eC W1 ([facility]) Metformin hydrochloride 500 MG Oral Tablet Metformin H Cl 500 MG Metformin HCl 500 MG 06/23/2020 12:00:00 AM EDT 1.0 {tablet_with_a_meal} active Metformin HCl 500 MG eCW1 ([facility]) HM Lidocaine Patch 4 % HM Lidocaine Patch 4 % 06/23/2020 12:00:00 AM E DT active HM Lidocaine Patch 4 % eC W1 ([facility]) HM Lidocaine Patch 4 % HM Lidocaine Patch 4 % 06/23/2020 12:00:00 AM E DT active HM Lidocaine Patch 4 % eC W1 ([facility]) Alendronic acid 70 MG Oral Tablet Alendronate Sodium 7 0 MG Alendronate Sodium 70 MG 06/23/2020 12:00:00 AM EDT active Alendronate Sodium 70 MG eCW1 ([facility]) gabapentin 100 MG Oral Capsule Gabapentin 100 MG Gabapentin 100 MG 06/23/2020 12:00:00 AM EDT 1.0 {capsule} active G abapentin 100 MG eCW1 ([facility]) Metformin hydrochloride 500 MG Oral Tablet Metformin H Cl 500 MG Metformin HCl 500 MG 06/23/2020 12:00:00 AM EDT 1.0 {tablet_with_a_meal} active Metformin HCl 500 MG eCW1 ([facility]) gabapentin 100 MG Oral Capsule Gabapentin 100 MG Gabapentin 100 MG 06/23/2020 12:00:00 AM EDT 1.0 {capsule} active G abapentin 100 MG eCW1 ([facility]) HM Lidocaine Patch 4 % HM Lidocaine Patch 4 % 06/23/2020 12:00:00 AM E DT active HM Lidocaine Patch 4 % eC W1 ([facility]) Acetaminophen 325 MG / Hydrocodone Marin trate 5 MG Oral Tablet Hydrocodone- Acetaminophen 5-325 MG Hydrocodone-Acetaminophen 5-325 MG 06/23/2020 12:00:00 AM EDT 1.0 {tablet_as_needed} active eCW1 ([facility]) HM Lidocaine Patch 4 % HM Lidocaine Patch 4 % 06/23/2020 12:00:00 AM E DT active HM Lidocaine Patch 4 % eC W1 ([facility]) Metformin hydrochloride 500 MG Oral Tablet metFORMIN H Cl 500 MG metFORMIN HCl 500 MG 06/23/2020 12:00:00 AM EDT 1.0 {tablet_with_a_meal} active metFORMIN HCl 500 MG eCW1 ([facility]) gabapentin 100 MG Oral Capsule Gabapentin 100 MG Gabapentin 100 MG 06/23/2020 12:00:00 AM EDT 1.0 {capsule} active G abapentin 100 MG eCW1 ([facility]) gabapentin 100 MG Oral Capsule Gabapentin 100 MG Gabapentin 100 MG 06/23/2020 12:00:00 AM EDT 1.0 {capsule} active eCW1 ([facility]) Acetaminophen 325 MG / Hydrocodone Marin trate 5 MG Oral Tablet HYDROcodone- Acetaminophen 5-325 MG HYDROcodone-Acetaminophen 5-325 MG 06/23/2020 12:00:00 AM EDT 1.0 {tablet_as_needed} active HYDROcodone-Acetaminophen 5-325 MG eCW1 ([facility]) Acetaminophen 325 MG / Hydrocodone Marin trate 5 MG Oral Tablet HYDROcodone- Acetaminophen 5-325 MG HYDROcodone-Acetaminophen 5-325 MG 06/23/2020 12:00:00 AM EDT 1.0 {tablet_as_needed} active HYDROcodone-Acetaminophen 5-325 MG eCW1 ([facility]) Metformin hydrochloride 500 MG Oral Tablet Metformin H Cl 500 MG Metformin HCl 500 MG 06/23/2020 12:00:00 AM EDT 1.0 {tablet_with_a_meal} active Metformin HCl 500 MG eCW1 ([facility]) Acetaminophen 325 MG / Hydrocodone Marin trate 5 MG Oral Tablet HYDROcodone- Acetaminophen 5-325 MG HYDROcodone-Acetaminophen 5-325 MG 06/23/2020 12:00:00 AM EDT 1.0 {tablet_as_needed} active HYDROcodone-Acetaminophen 5-325 MG eCW1 ([facility]) Alendronic acid 70 MG Oral Tablet Alendronate Sodium 7 0 MG Alendronate Sodium 70 MG 06/23/2020 12:00:00 AM EDT active Alendronate Sodium 70 MG eCW1 ([facility]) Alendronic acid 70 MG Oral Tablet Alendronate Sodium 7 0 MG Alendronate Sodium 70 MG 06/23/2020 12:00:00 AM EDT active Alendronate Sodium 70 MG eCW1 ([facility]) gabapentin 100 MG Oral Capsule Gabapentin 100 MG Gabapentin 100 MG 06/23/2020 12:00:00 AM EDT 1.0 {capsule} active G abapentin 100 MG eCW1 ([facility]) Alendronic acid 70 MG Oral Tablet Alendronate Sodium 7 0 MG Alendronate Sodium 70 MG 06/23/2020 12:00:00 AM EDT active Alendronate Sodium 70 MG eCW1 ([facility]) Metformin hydrochloride 500 MG Oral Tablet metFORMIN H Cl 500 MG metFORMIN HCl 500 MG 06/23/2020 12:00:00 AM EDT 1.0 {tablet_with_a_meal} active metFORMIN HCl 500 MG eCW1 ([facility]) Alendronic acid 70 MG Oral Tablet Alendronate Sodium 7 0 MG Alendronate Sodium 70 MG 06/23/2020 12:00:00 AM EDT active Alendronate Sodium 70 MG eCW1 ([facility]) Alendronic acid 70 MG Oral Tablet Alendronate Sodium 7 0 MG Alendronate Sodium 70 MG 06/23/2020 12:00:00 AM EDT active Alendronate Sodium 70 MG eCW1 ([facility]) Acetaminophen 325 MG / Hydrocodone Marin trate 5 MG Oral Tablet HYDROcodone- Acetaminophen 5-325 MG HYDROcodone-Acetaminophen 5-325 MG 06/23/2020 12:00:00 AM EDT 1.0 {tablet_as_needed} active HYDROcodone-Acetaminophen 5-325 MG eCW1 ([facility]) Alendronic acid 70 MG Oral Tablet Alendronate Sodium 7 0 MG Alendronate Sodium 70 MG 06/23/2020 12:00:00 AM EDT active Alendronate Sodium 70 MG eCW1 ([facility]) Acetaminophen 325 MG / Hydrocodone Marin trate 5 MG Oral Tablet HYDROcodone- Acetaminophen 5-325 MG HYDROcodone-Acetaminophen 5-325 MG 06/23/2020 12:00:00 AM EDT 1.0 {tablet_as_needed} active HYDROcodone-Acetaminophen 5-325 MG eCW1 ([facility]) Metformin hydrochloride 500 MG Oral Tablet metFORMIN H Cl 500 MG metFORMIN HCl 500 MG 06/23/2020 12:00:00 AM EDT 1.0 {tablet_with_a_meal} active metFORMIN HCl 500 MG eCW1 ([facility]) Acetaminophen 325 MG / Hydrocodone Marin trate 5 MG Oral Tablet Hydrocodone- Acetaminophen 5-325 MG Hydrocodone-Acetaminophen 5-325 MG 06/23/2020 12:00:00 AM EDT 1.0 {tablet_as_needed} active Hydrocodone-Acetaminophen 5-325 MG eCW1 ([facility]) HM Lidocaine Patch 4 % HM Lidocaine Patch 4 % 06/23/2020 12:00:00 AM E DT active HM Lidocaine Patch 4 % eC W1 ([facility]) Metformin hydrochloride 500 MG Oral Tablet Metformin H Cl 500 MG Metformin HCl 500 MG 06/23/2020 12:00:00 AM EDT 1.0 {tablet_with_a_meal} active Metformin HCl 500 MG eCW1 ([facility]) gabapentin 100 MG Oral Capsule Gabapentin 100 MG Gabapentin 100 MG 06/23/2020 12:00:00 AM EDT 1.0 {capsule} active G abapentin 100 MG eCW1 ([facility]) Acetaminophen 325 MG / Hydrocodone Marin trate 5 MG Oral Tablet Hydrocodone- Acetaminophen 5-325 MG Hydrocodone-Acetaminophen 5-325 MG 06/23/2020 12:00:00 AM EDT 1.0 {tablet_as_needed} active Hydrocodone-Acetaminophen 5-325 MG eCW1 ([facility]) Metformin hydrochloride 500 MG Oral Tablet Metformin H Cl 500 MG Metformin HCl 500 MG 06/23/2020 12:00:00 AM EDT 1.0 {tablet_with_a_meal} active Metformin HCl 500 MG eCW1 ([facility]) HM Lidocaine Patch 4 % HM Lidocaine Patch 4 % 06/23/2020 12:00:00 AM E DT active HM Lidocaine Patch 4 % eC W1 ([facility]) Alendronic acid 70 MG Oral Tablet Alendronate Sodium 7 0 MG Alendronate Sodium 70 MG 06/23/2020 12:00:00 AM EDT active Alendronate Sodium 70 MG eCW1 ([facility]) Alendronic acid 70 MG Oral Tablet Alendronate Sodium 7 0 MG Alendronate Sodium 70 MG 06/23/2020 12:00:00 AM EDT active Alendronate Sodium 70 MG eCW1 ([facility]) gabapentin 100 MG Oral Capsule Gabapentin 100 MG Gabapentin 100 MG 06/23/2020 12:00:00 AM EDT 1.0 {capsule} active G abapentin 100 MG eCW1 ([facility]) HM Lidocaine Patch 4 % HM Lidocaine Patch 4 % 06/23/2020 12:00:00 AM E DT active HM Lidocaine Patch 4 % eC W1 ([facility]) gabapentin 100 MG Oral Capsule Gabapentin 100 MG Gabapentin 100 MG 06/23/2020 12:00:00 AM EDT 1.0 {capsule} active G abapentin 100 MG eCW1 ([facility]) Metformin hydrochloride 500 MG Oral Tablet metFORMIN H Cl 500 MG metFORMIN HCl 500 MG 06/23/2020 12:00:00 AM EDT 1.0 {tablet_with_a_meal} active metFORMIN HCl 500 MG eCW1 ([facility]) Metformin hydrochloride 500 MG Oral Tablet metFORMIN H Cl 500 MG metFORMIN HCl 500 MG 06/23/2020 12:00:00 AM EDT 1.0 {tablet_with_a_meal} active metFORMIN HCl 500 MG eCW1 ([facility]) Metformin hydrochloride 500 MG Oral Tablet metFORMIN H Cl 500 MG metFORMIN HCl 500 MG 06/23/2020 12:00:00 AM EDT 1.0 {tablet_with_a_meal} active metFORMIN HCl 500 MG eCW1 ([facility]) Alendronic acid 70 MG Oral Tablet Alendronate Sodium 7 0 MG Alendronate Sodium 70 MG 06/23/2020 12:00:00 AM EDT active Alendronate Sodium 70 MG eCW1 ([facility]) Alendronic acid 70 MG Oral Tablet Alendronate Sodium 7 0 MG Alendronate Sodium 70 MG 06/23/2020 12:00:00 AM EDT active Alendronate Sodium 70 MG eCW1 ([facility]) Acetaminophen 325 MG / Hydrocodone Marin trate 5 MG Oral Tablet Hydrocodone- Acetaminophen 5-325 MG Hydrocodone-Acetaminophen 5-325 MG 06/23/2020 12:00:00 AM EDT 1.0 {tablet_as_needed} active Hydrocodone-Acetaminophen 5-325 MG eCW1 ([facility]) Alendronic acid 70 MG Oral Tablet Alendronate Sodium 7 0 MG Alendronate Sodium 70 MG 06/23/2020 12:00:00 AM EDT active Alendronate Sodium 70 MG eCW1 ([facility]) Alendronic acid 70 MG Oral Tablet Alendronate Sodium 7 0 MG Alendronate Sodium 70 MG 06/23/2020 12:00:00 AM EDT active Alendronate Sodium 70 MG eCW1 ([facility]) Alendronic acid 70 MG Oral Tablet Alendronate Sodium 7 0 MG Alendronate Sodium 70 MG 06/23/2020 12:00:00 AM EDT active Alendronate Sodium 70 MG eCW1 ([facility]) Alendronic acid 70 MG Oral Tablet Alendronate Sodium 7 0 MG Alendronate Sodium 70 MG 06/23/2020 12:00:00 AM EDT active Alendronate Sodium 70 MG eCW1 ([facility]) Metformin hydrochloride 500 MG Oral Tablet metFORMIN H Cl 500 MG metFORMIN HCl 500 MG 06/23/2020 12:00:00 AM EDT 1.0 {tablet_with_a_meal} active metFORMIN HCl 500 MG eCW1 ([facility]) Metformin hydrochloride 500 MG Oral Tablet Metformin H Cl 500 MG Metformin HCl 500 MG 06/23/2020 12:00:00 AM EDT 1.0 {tablet_with_a_meal} active eCW1 ([facility]) HM Lidocaine Patch 4 % HM Lidocaine Patch 4 % 06/23/2020 12:00:00 AM E DT active HM Lidocaine Patch 4 % eC W1 ([facility]) HM Lidocaine Patch 4 % HM Lidocaine Patch 4 % 06/23/2020 12:00:00 AM E DT active HM Lidocaine Patch 4 % eC W1 ([facility]) Metformin hydrochloride 500 MG Oral Tablet Metformin H Cl 500 MG Metformin HCl 500 MG 06/23/2020 12:00:00 AM EDT 1.0 {tablet_with_a_meal} active Metformin HCl 500 MG eCW1 ([facility]) Metformin hydrochloride 500 MG Oral Tablet metFORMIN H Cl 500 MG metFORMIN HCl 500 MG 06/23/2020 12:00:00 AM EDT 1.0 {tablet_with_a_meal} active metFORMIN HCl 500 MG eCW1 ([facility]) Acetaminophen 325 MG / Hydrocodone Marin trate 5 MG Oral Tablet Hydrocodone- Acetaminophen 5-325 MG Hydrocodone-Acetaminophen 5-325 MG 06/23/2020 12:00:00 AM EDT 1.0 {tablet_as_needed} active Hydrocodone-Acetaminophen 5-325 MG eCW1 ([facility]) HM Lidocaine Patch 4 % HM Lidocaine Patch 4 % 06/23/2020 12:00:00 AM E DT active HM Lidocaine Patch 4 % eC W1 ([facility]) gabapentin 100 MG Oral Capsule Gabapentin 100 MG Gabapentin 100 MG 06/23/2020 12:00:00 AM EDT 1.0 {capsule} active G abapentin 100 MG eCW1 ([facility]) gabapentin 100 MG Oral Capsule Gabapentin 100 MG Gabapentin 100 MG 06/23/2020 12:00:00 AM EDT 1.0 {capsule} active G abapentin 100 MG eCW1 ([facility]) Alendronic acid 70 MG Oral Tablet Alendronate Sodium 7 0 MG Alendronate Sodium 70 MG 06/23/2020 12:00:00 AM EDT active Alendronate Sodium 70 MG eCW1 ([facility]) Acetaminophen 325 MG / Hydrocodone Marin trate 5 MG Oral Tablet Hydrocodone- Acetaminophen 5-325 MG Hydrocodone-Acetaminophen 5-325 MG 06/23/2020 12:00:00 AM EDT 1.0 {tablet_as_needed} active Hydrocodone-Acetaminophen 5-325 MG eCW1 ([facility]) Alendronic acid 70 MG Oral Tablet Alendronate Sodium 7 0 MG Alendronate Sodium 70 MG 06/23/2020 12:00:00 AM EDT active Alendronate Sodium 70 MG eCW1 ([facility]) gabapentin 100 MG Oral Capsule Gabapentin 100 MG Gabapentin 100 MG 06/23/2020 12:00:00 AM EDT 1.0 {capsule} active G abapentin 100 MG eCW1 ([facility]) gabapentin 100 MG Oral Capsule Gabapentin 100 MG Gabapentin 100 MG 06/23/2020 12:00:00 AM EDT 1.0 {capsule} active G abapentin 100 MG eCW1 ([facility]) HM Lidocaine Patch 4 % HM Lidocaine Patch 4 % 06/23/2020 12:00:00 AM E DT active HM Lidocaine Patch 4 % eC W1 ([facility]) gabapentin 100 MG Oral Capsule Gabapentin 100 MG Gabapentin 100 MG 06/23/2020 12:00:00 AM EDT 1.0 {capsule} active G abapentin 100 MG eCW1 ([facility]) HM Lidocaine Patch 4 % HM Lidocaine Patch 4 % 06/23/2020 12:00:00 AM E DT active HM Lidocaine Patch 4 % eC W1 ([facility]) Metformin hydrochloride 500 MG Oral Tablet metFORMIN H Cl 500 MG metFORMIN HCl 500 MG 06/23/2020 12:00:00 AM EDT 1.0 {tablet_with_a_meal} active metFORMIN HCl 500 MG eCW1 ([facility]) Metformin hydrochloride 500 MG Oral Tablet Metformin H Cl 500 MG Metformin HCl 500 MG 06/23/2020 12:00:00 AM EDT 1.0 {tablet_with_a_meal} active Metformin HCl 500 MG eCW1 ([facility]) Acetaminophen 325 MG / Hydrocodone Marin trate 5 MG Oral Tablet Hydrocodone- Acetaminophen 5-325 MG Hydrocodone-Acetaminophen 5-325 MG 06/23/2020 12:00:00 AM EDT 1.0 {tablet_as_needed} active Hydrocodone-Acetaminophen 5-325 MG eCW1 ([facility]) Metformin hydrochloride 500 MG Oral Tablet metFORMIN H Cl 500 MG metFORMIN HCl 500 MG 06/23/2020 12:00:00 AM EDT 1.0 {tablet_with_a_meal} active metFORMIN HCl 500 MG eCW1 ([facility]) gabapentin 100 MG Oral Capsule Gabapentin 100 MG Gabapentin 100 MG 06/23/2020 12:00:00 AM EDT 1.0 {capsule} active G abapentin 100 MG eCW1 ([facility]) Acetaminophen 325 MG / Hydrocodone Marin trate 5 MG Oral Tablet HYDROcodone- Acetaminophen 5-325 MG HYDROcodone-Acetaminophen 5-325 MG 06/23/2020 12:00:00 AM EDT 1.0 {tablet_as_needed} active HYDROcodone-Acetaminophen 5-325 MG eCW1 ([facility]) gabapentin 100 MG Oral Capsule Gabapentin 100 MG Gabapentin 100 MG 06/23/2020 12:00:00 AM EDT 1.0 {capsule} active G abapentin 100 MG eCW1 ([facility]) HM Lidocaine Patch 4 % HM Lidocaine Patch 4 % 06/23/2020 12:00:00 AM E DT active HM Lidocaine Patch 4 % eC W1 ([facility]) HM Lidocaine Patch 4 % HM Lidocaine Patch 4 % 06/23/2020 12:00:00 AM E DT active HM Lidocaine Patch 4 % eC W1 ([facility]) TENS Therapy Pain Relief 01/03/2020 12:00:00 AM EST active [facility] ([facility] Acetaminophen 500 MG Oral Tablet Acetaminophen Extra Strengt h 01/03/2020 12:00:00 AM EST ORAL active M [facility]ENT ([facility] TENS Therapy Replacement Back Pads 01/03/2020 12:00:00 AM EST active [facility] ([facility] Lidocaine Pain Relief Lidocaine Pain Relief 12/20/2019 12:00:00 AM EST active [facility] ([facility] 24 HR Nicotine 0.875 MG/HR Transdermal Patch Nicotine Transd ermal System 09/15/2019 12:00:00 AM EDT completed [facility] ([facility] Insurance Providers Payer name Policy type / Coverage type Policy ID Covered libertarian ID Covered libertarian's relationship to krause Policy Krause Plan Information [facility]IC[facility] [id number] S [id number] MEDICARE A [id number] Self [id number] A [employer] [id number] S [id number] Medicare P [id number] S [id number] A Today's Options Commercial [id number] Self [id number] WELLCARE [id number] SP [id number] TODAYS OPTIONS [id number] SP [id number] TOD[employer] OPTIONS [id number] SP [id number] WELLC[employer] MEDICARE HMO G [id number] Self [id number] MEDICARE C [id number] S [id number] WELLCARE O [id number] S [id number] MEDICARE [id number] SP [id number] Wellcare Commercial [id number] Self [id number] Well Care Medigap Part B [id number] Self [id number] Today's Option Commercial [id number] Self [id number] Wellcare Commercial [id number] Self [id number] Well Care Medigap Part B [id number] Self [id number] Today's Option Commercial [id number] Self [id number] Wellcare Commercial [id number] S elf [id number] Well Care Medigap Part B [id number] Self [id number] Today's Option Commercial [id number] 983.0 Self [id number] ANSI-Health Maintenance Organization ( O) [id number] ANSI-Medicare Part B [id number] Today's Option Commercial [id number] 983.0 Self [id number] ANSI-Medicare Part B [id number] ANSI-Health Maintenance Organization ( O) [id number] ANSI-Health Maintenance Organization ( O) [id number] ANSI-Medicare Part B [id number] Today's Option Commercial [id number] [facility] O [id number] S [id number] Today's Option Commercial [id number] 983.0 Self [id number] Today's Option Commercial [id number] 983.0 Self [id number] Today's Option Commercial [id number] 983.0 Self [id number] Today's Option Commercial [id number] 983.0 Self [id number] Today's Option Commercial [id number] 983.0 Self [id number] Today's Option Commercial [id number] 983.0 Self [id number] TODAYS OPTIONS/MONTENEGRIN O [id number] S [id number] MEDICARE C [id number] S [id number] A TOD[employer]YS OPTIONS [id number] SP [id number] MEDICAID [id number] SP [id number] MEDICARE [id number] SP [id number] A Today's Option Commercial [id number] 983.0 Self [id number] Today's Option Commercial [id number] 983.0 Self [id number] TOD[employer]YS OPTIONS [id number] SP [id number] Medicare [employer] Medicare Primary [id number] Self [id number] [facility] MEDICARE PART B C [id number] S [id number] MEDICARE PART A -O/P [id number] 18 [id number] [facility] C [id number] S [id number] WELLCARE [id number] SP [id number] MEDICARE MEDICARE [id number] Self ELA COUTURE MED ICARE WELLCARE [id number] S [id number] WELLCARE [id number] SP [id number] MEDICARE [id number] SP [id number] A MEDICARE [id number] SP [id number] WELLCARE HEALTH PLANS [id number] S [id number] MEDICARE [id number] SP [id number] [employer] MEDICARE [employer]ISION [id number] S [id number] MEDICARE - [place] [id number] S [id number] Problems, Conditions, and Diagnoses Code Display Name Description Problem Type Effective Dates Data Source(s) Y92.[address] or not applicable UNSPECIFIED PLACE OR NOT APPLICABLE Diagnosis 05/18/2020 07:42:00 PM EDT [facility] W19.XXXA Unspecified fall, initial encounter UNSP ECIFIED FALL, INITIAL ENCOUNTER Diagnosis 05/18/2020 07:42:00 PM EDT [facility] jer E11.649 Type 2 diabetes mellitus with hypoglycem ia without coma TYPE 2 DIABETES MELLITUS WITH HYPOGLYCEMIA WITHOUT Diagnosis 05/18/2020 07:42:00 PM ED [facility] B37.3 Candidiasis of vulva and vagina CANDIDIASIS OF VULVA A ND VAGINA Diagnosis 05/18/2020 07:42:00 PM EDT [facility] D69.6 Thrombocytopenia, unspecified THROMBOCYTOPENIA, UNSPEC IFIED Diagnosis 05/18/2020 07:42:00 PM EDT [facility] F19.10 Other psychoactive substance abuse, unco mplicated OTHER PSYCHOACTIVE SUBSTANCE ABUSE, UNCOMPLICATED Diagnosis 05/18/2020 07:42:00 PM EDT [facility] D72.829 Elevated white blood cell count, unspeci fied ELEVATED WHITE BLOOD CELL COUNT, UNSPECIFIED Diagnosis 05/18/2020 07:42:00 PM EDT [facility] M48.00 Spinal stenosis, site unspecified SPINAL STENOSI S, SITE UNSPECIFIED Diagnosis 05/18/2020 07:42:00 PM EDT [facility] T38.0X5A Adverse effect of glucocorti coids and synthetic analogues, initial encounter ADVERSE EFFECT OF GLUCOCORT/SYNTH ANALOG, INIT Diagnosis 05/18/2020 07:42:00 PM EDT [facility] E11.65 Type 2 diabetes mellitus with hyperglyce lee TYPE 2 DIABETES MELLITUS WITH HYPERGLYCEMIA Diagnosis 05/18/2020 07:42:00 PM EDT [facility] jer I12.9 Hypertensive chronic kidney disease with stage 1 through stage 4 chronic kidney disease, or unspecified chronic kidney disease HYPERTENSIVE CHRONIC KIDNEY DISEASE W STG 1-4/UNSP Diagnosis 05/18/2020 07:42:00 PM EDT [facility] D63.8 Anemia in other chronic diseases classif ied elsewhere ANEMIA IN OTHER CHRONIC DISEASES CLASSIFIED ELSEWH Diagnosis 05/18/2020 07:42:00 PM ED T [facility] E11.51 Type 2 diabetes mellitus wit h diabetic peripheral angiopathy without gangrene TYPE 2 DIABETES W DIABETIC PERIPHERAL ANGIOPATH W/ Diagnosis 05/18/2020 07:42:00 PM EDT [facility] N18.9 Chronic kidney disease, unspecified CHRONIC KIDN EY DISEASE, UNSPECIFIED Diagnosis 05/18/2020 07:42:00 PM EDT [facility] E11.22 Type 2 diabetes mellitus with diabetic c hronic kidney disease TYPE 2 DIABETES MELLITUS W DIABETIC CHRONIC KIDNEY Diagnosis 05/18/2020 07:42:00 PM EDT [facility] 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, not elsewhere classified OTH DISORDERS OF PLASMA-PROTEIN METABOLISM, NEC Diagnosis 2020 07:42:00 PM EDT [facility] S22.019A Unspecified fracture of firs t thoracic vertebra, initial encounter for closed fracture UNSP FRACTURE OF FIRST THORACIC VERTEBRA, INIT FOR Diagnosis 05/18/2020 07:42:00 PM EDT [facility] N17.9 Acute kidney failure, unspecified ACUTE KIDNEY F AILURE, UNSPECIFIED Diagnosis 05/18/2020 07:42:00 PM EDT [facility] J44.1 Chronic obstructive pulmonary disease wi th (acute) exacerbation CHRONIC OBSTRUCTIVE PULMONARY DISEASE W (ACUTE) EX Diagnosis 05/18/2020 07:42: 00 PM EDT [facility] J90 Pleural effusion, not elsewhere classifi ed PLEURAL EFFUSION, NOT ELSEWHERE CLASSIFIED Diagnosis 05/18/2020 [facility]42[facility] J98.11 Atelectasis ATELECTASIS Diagnosis 05/18/2020 07:42:00 PM EDT [facility] N39.0 Urinary tract infection, site not specif ied URINARY TRACT INFECTION, SITE NOT SPECIFIED Diagnosis 05/18/2020 07:42:00 PM EDT [facility] jer J96.21 Acute and chronic respiratory failure wi th hypoxia ACUTE AND CHRONIC RESPIRATORY FAILURE WITH HYPOXIA Diagnosis 05/18/2020 07:42:00 PM EDT [facility] J15.212 Pneumonia due to Methicillin resistant S taphylococcus aureus PNEUMONIA DUE TO METHICILLIN RESISTANT STAPHYLOCOC Diagnosis 05/18/2020 07:42:00 PM EDT [facility] S22.029A Unspecified fracture of [place] thoracic vertebra, initial encounter for closed fracture UNSP FRACTURE OF SECOND THORACIC VERTEBRA, INIT FO Diagnosis 05/18/2020 07:42:00 PM EDT [facility] M54.5 Low back pain LOW BACK PAIN Diagnosis 05/18/2020 07:42:00 PM EDT [facility] Z99.81 Dependence on supplemental oxygen DEPENDENCE ON SUPPLEMENTAL OXYGEN Diagnosis 05/18/2020 07:42:00 PM EDT [facility] R53.81 Other malaise OTHER MALAISE Diagnosis 05/18/2020 07:42:00 PM EDT [facility] E03.9 Hypothyroidism, unspecified HYPOTHYROIDISM, UNSPECIFIE D Diagnosis 05/18/2020 07:42:00 PM EDT [facility] F41.9 Anxiety disorder, unspecified ANXIETY DISORDER, UNSPEC IFIED Diagnosis 05/18/2020 07:42:00 PM EDT [facility] F17.200 Nicotine dependence, unspecified, uncomp licated NICOTINE DEPENDENCE, UNSPECIFIED, UNCOMPLICATED Diagnosis 05/18/2020 07:42:00 PM EDT [facility] E78.5 Hyperlipidemia, unspecified HYPERLIPIDEMIA, UNSPECIFIE D Diagnosis 05/18/2020 07:42:00 PM EDT [facility] F32.9 Major depressive disorder, single episod e, unspecified MAJOR DEPRESSIVE DISORDER, SINGLE EPISODE, UNSPECI Diagnosis 05/18/2020 07:42:00 PM EDT [facility] J44.9 Chronic obstructive pulmonary disease, u nspecified CHRONIC OBSTRUCTIVE PULMONARY DISEASE, UNSPECIFIED Diagnosis 05/18/2020 07:42:00 PM EDT [facility] Pneumonia, sepsis, needs MRI Pneumonia, sepsis, needs MRI Diagnosis 05/18/2020 04:36:00 PM EDT [facility] Z87.891 Personal history of nicotine dependence PERSONAL HISTORY OF NICOTINE DEPENDENCE Diagnosis 05/18/2020 01:32:00 PM [facility] Z99.81 Dependence on supplemental oxygen DEPENDENCE ON SUPPLEMENTAL OXYGEN Diagnosis 05/18/2020 01:32:00 PM [facility] Z79.891 skilled nursing (current) use of opiate analge sic CHECKER AND PACKER (CURRENT) USE OF OPIATE ANALGESIC Diagnosis 05/18/2020 01:32:00 PM [facility] Z79.02 extermination supervisor (current) use of antithromboti cs/antiplatelets [facility]IOR [facility]IVING (CURRENT) USE OF ANTITHROMBOTICS/ANTIPLA Diagnosis 05/18/2020 01:32:00 PM [facility] Z79.899 Other jail (current) drug therapy O THER CHECKER AND PACKER (CURRENT) DRUG THERAPY Diagnosis 05/18/2020 01:32:00 PM [facility] l I10 Essential (primary) hypertension ESSENTIAL (PRIMARY) H YPERTENSION Diagnosis 05/18/2020 01:32:00 PM [facility] E11.9 Type 2 diabetes mellitus without complic ations TYPE 2 DIABETES MELLITUS WITHOUT COMPLICATIONS Diagnosis 05/18/2020 01:32:00 PM [facility] jer J44.9 Chronic obstructive pulmonary disease, u nspecified CHRONIC OBSTRUCTIVE PULMONARY DISEASE, UNSPECIFIED Diagnosis 05/18/2020 01:32:00 PM [facility] K59.00 Constipation, unspecified CONSTIPATION, UNSPECIFIED Di agnosis 05/18/2020 01:32:00 PM [facility] N17.9 Acute kidney failure, unspecified ACUTE KIDNEY F AILURE, UNSPECIFIED Diagnosis 05/18/2020 01:32:00 PM [facility] I16.0 HYPERTENSIVE URGENCY HYPERTENSIVE URGENCY Diagnosis 05/18/2020 01:32:00 PM [facility] G93.41 Metabolic encephalopathy METABOLIC ENCEPHALOPATHY Diag nosis 05/18/2020 01:32:00 PM [facility] G89.29 Other chronic pain OTHER CHRONIC PAIN Diagnosis 09/2020 01:32:00 PM [facility] M54.5 Low back pain LOW BACK PAIN Diagnosis 05/18/2020 01:32:00 PM [facility] D72.829 Elevated white blood cell count, unspeci fied ELEVATED WHITE BLOOD CELL COUNT, UNSPECIFIED Diagnosis 05/18/2020 01:32:00 PM [facility] l J18.9 Pneumonia, unspecified organism PNEUMONIA, UNSPECIFIED ORGANISM Diagnosis 05/18/2020 01:32:00 PM [facility] R53.1 Weakness WEAKNESS Diagnosis 05/18/2020 01:32:00 PM [facility] Z45.2 Encounter for adjustment and management of vascular access device ENCOUNTER FOR ADJUSTMENT AND MANAGEMENT OF VAD Diagnosis 021 10:45:00 AM [facility] Z79.899 Other jail (current) drug therapy O THER [facility]IOR [facility]IVING (CURRENT) DRUG THERAPY Diagnosis 05/18/2020 10:45:00 AM [facility] jer N32.89 Other specified disorders of bladder OTH ER SPECIFIED DISORDERS OF BLADDER Diagnosis 05/16/2020 08[facility]11:[facility] R[facility].0 Disorientation, unspecified DISORIENTATION, UNSPECIFIE D Diagnosis 05/16/2020 08:11:00 PM [facility] R45.1 Restlessness and agitation RESTLESSNESS AND AGITATION Diagnosis 05/16/2020 08:11:00 PM [facility] K59.03 DRUG INDUCED CONSTIPATION DRUG INDUCED CONSTIPATION Di agnosis 05/16/2020 08:11:00 PM [facility] K21.9 Gastro-esophageal reflux disease without esophagitis GASTRO-ESOPHAGEAL REFLUX DISEASE WITHOUT ESOPHAGIT Diagnosis 05/16/2020 08:11:00 PM [facility] M54.6 Pain in thoracic spine PAIN IN THORACIC SPINE Diagnosi s 05/16/2020 08:11:00 PM [facility] E78.5 Hyperlipidemia, unspecified HYPERLIPIDEMIA, UNSPECIFIE D Diagnosis 05/16/2020 08:11:00 PM [facility] R26.81 Unsteadiness on feet UNSTEADINESS ON FEET Diagnosis 05/16/2020 08:11:00 PM [facility] E11.649 Type 2 diabetes mellitus with hypoglycem ia without coma TYPE 2 DIABETES MELLITUS WITH HYPOGLYCEMIA WITHOUT Diagnosis 05/16/2020 08:11:00 PM [facility] R53.81 Other malaise OTHER MALAISE Diagnosis 05/16/2020 08:11:00 PM [facility] J96.21 Acute and chronic respiratory failure wi th hypoxia ACUTE AND CHRONIC RESPIRATORY FAILURE WITH HYPOXIA Diagnosis 05/16/2020 08:11:00 PM [facility] A41.9 Sepsis, unspecified organism SEPSIS, UNSPECIFIED ORGAN ISM Diagnosis 05/16/2020 08:11:00 PM [facility] J15.212 Pneumonia due to Methicillin resistant S taphylococcus aureus PNEUMONIA DUE TO METHICILLIN RESISTANT STAPHYLOCOCCUS AUREUS Diagnosis 07/2020 08:11:00 PM [facility] Z86.14 Personal history of Methicil criss resistant Staphylococcus aureus infection PERSONAL HISTORY OF METHICILLIN RESIS STAPH INFECT Diagnosis 05/10/2020 05:30:00 PM [facility] Z91.14 Patient's other noncompliance with medic ation regimen PATIENT'S OTHER NONCOMPLIANCE WITH MEDICATION NUZHAT Diagnosis 05/10/2020 05:30:00 PM [facility] Z79.51 extermination supervisor (current) use of inhaled stero ids CHECKER AND PACKER (CURRENT) USE OF INHALED STEROIDS Diagnosis 05/10/2020 05:30:00 PM [facility] Z91.81 History of falling HISTORY OF FALLING Diagnosis 05:30:00 PM [facility] Z87.448 Personal history of other diseases of ur inary system PERSONAL HISTORY OF OTHER DISEASES OF URINARY SYST Diagnosis [facility]/10[facility]2020 [facility] Hypertensive chronic kidney disease with stage 1 through stage 4 chronic kidney disease, or unspecified chronic kidney disease HYPERTENSIVE CHRONIC KIDNEY DISEASE W STG 1-4/UNSP Diagnosis [facility] Diaphragmatic hernia without obstruction or gangrene DIAPHRAGMATIC HERNIA WITHOUT OBSTRUCTION OR GANGRE Diagnosis 05/10/2020 05:30:00 PM [facility] D64.9 Anemia, unspecified ANEMIA, UNSPECIFIED Diagnosis 0 05/10/2020 05:30:00 PM [facility] R59.1 Generalized enlarged lymph nodes GENERALIZED ENL ARGED LYMPH NODES Diagnosis 05/10/2020 05:30:00 PM [facility] F17.210 Nicotine dependence, cigarettes, uncompl icated NICOTINE DEPENDENCE, CIGARETTES, UNCOMPLICATED Diagnosis 05/10/2020 05:30:00 PM [facility] R41.3 Other amnesia OTHER AMNESIA Diagnosis 05/10/2020 05:30:00 PM [facility] I25.84 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 CORONARY ATHEROSCLEROSIS DUE TO CALCIFIED CORONARY Diagnosis 05/10/2020 05:30:0 0 PM [facility] F41.9 Anxiety disorder, unspecified ANXIETY DISORDER, UNSPEC IFIED Diagnosis 05/10/2020 05:30:00 PM [facility] F32.9 Major depressive disorder, single episod e, unspecified MAJOR DEPRESSIVE DISORDER, SINGLE EPISODE, UNSPECI Diagnosis 05/10/2020 05:30:00 PM [facility] E03.9 Hypothyroidism, unspecified HYPOTHYROIDISM, UNSPECIFIE D Diagnosis 05/10/2020 05:30:00 PM [facility] I73.9 Peripheral vascular disease, unspecified PERIPHERAL VASCULAR DISEASE, UNSPECIFIED Diagnosis 05/10/2020 05:30:00 PM [facility] E78.00 PURE HYPERCHOLESTEROLEMIA, UNSPECIFIED P URE HYPERCHOLESTEROLEMIA, UNSPECIFIED Diagnosis 05/10/2020 05:30:00 PM [facility] l 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, not elsewhere classified OT DISORDERS OF PLASMA-PROTEIN METABOLISM, NEC Diagnosis 2020 05:30:00 PM [facility] R63.0 Anorexia ANOREXIA Diagnosis 05/10/2020 05:30:00 PM [facility] R80.9 Proteinuria, unspecified PROTEINURIA, UNSPECIFIED Diag nosis 05/10/2020 05:30:00 PM [facility] R26.2 Difficulty in walking, not elsewhere cla ssified DIFFICULTY IN WALKING, NOT ELSEWHERE CLASSIFIED Diagnosis 05/10/2020 [facility]30[facility] M[facility].061 SPINAL STENOSIS, LUMBAR REGION WITHOUT N EUROGENIC SPINAL STENOSIS, LUMBAR REGION WITHOUT NEUROGENIC Diagnosis 05/10/2020 05:30:00 PM [facility] E11.65 Type 2 diabetes mellitus with hyperglyce lee TYPE 2 DIABETES MELLITUS WITH HYPERGLYCEMIA Diagnosis 05/10/2020 05:30:00 PM [facility] E87.8 Other disorders of electroly te and fluid balance, not elsewhere classified OT DISORDERS OF ELECTROLYTE AND FLUID BALANCE, NE Diagnosis 05/10/2020 05:30:00 PM [facility] R79.89 Other specified abnormal findings of blo od chemistry OTHER SPECIFIED ABNORMAL FINDINGS OF BLOOD OPTICS TECHNICAL OFFICER Diagnosis 05/10/2020 05:30:00 PM [facility] E86.0 Dehydration DEHYDRATION Diagnosis 05/10/2020 05:30:00 PM [facility] N18.30 CHRONIC KIDNEY DISEASE, STAGE 3 UNSPECIF IED CHRONIC KIDNEY DISEASE, STAGE 3 UNSPECIFIED Diagnosis 05/10/2020 05:30:00 PM [facility] I31.3 Pericardial effusion (noninflammatory) P ERICARDIAL EFFUSION (NONINFLAMMATORY) Diagnosis 05/10/2020 05:30:00 PM [facility] E87.1 Hypo-osmolality and hyponatremia HYPO-OSMOLALITY AND HYPONATREMIA Diagnosis 05/10/2020 05:30:00 PM [facility] J44.0 Chronic obstructive pulmonar y disease with acute lower respiratory infection CHR OBSTRUCTIVE PULMON DISEASE WITH (ACUTE) LOWER Diagnosis 05/10/2020 05:30:00 PM [facility] Z20.822 CONTACT WITH AND (SUSPECTED) EXPOSURE TO COVID-19 CONTACT WITH AND (SUSPECTED) EXPOSURE TO COVID-19 Diagnosis 05/10/2020 12:22:00 PM [facility] Z79.4 extermination supervisor (current) use of insulin CHECKER AND PACKER (CU RRENT) USE OF INSULIN Diagnosis 05/10/2020 12:22:00 PM [facility] R74.02 ELEVATION OF LEVELS OF LACTIC ACID DEHYD ROGENASE [ ELEVATION OF LEVELS OF LACTIC ACID DEHYDROGENASE [ Diagnosis 05/10/2020 12:22:00 PM [facility] E86.1 Hypovolemia HYPOVOLEMIA Diagnosis 05/10/2020 12:22:00 PM [facility] G89.29 [id number] Other chronic pain Problem 06/30/2020 12:00: 00 AM EDT eCW1 ([facility]) F17.200 [id number] Current smoker Problem 06/30/2020 12:00:00 A M EDT eCW1 ([facility]) I10 Essential hypertension Essential hypertension Problem 06/23/2020 12:00:00 AM EDT eCW1 ([facility]) E78.5 [id number] Dyslipidemia Problem 06/23/2020 12:00:00 AM EDT eCW1 ([facility]) J43.9 [id number] Pulmonary emphysema, unspecified emphysem a type Problem 06/23/2020 12:00:00 AM EDT eCW1 ([facility]) E03.9 [id number] Hypothyroidism, unspecified type Problem 06/23/2020 12:00:00 AM EDT eCW1 ([facility]) E11.9 [id number] Type 2 diabetes mellitus without complica tions Problem 06/23/2020 12:00:00 AM EDT eCW1 ([facility]) Z79.52 [id number] Current chronic use of systemic steroi ds Problem 06/23/2020 12:00:00 AM EDT eCW1 ([facility]) F41.8 Anxiety depression Anxiety with depression Problem 06/23/2020 12:00:00 AM EDT eCW1 ([facility]) Surgeries/Procedures Procedure Description Date Indications Data Source(s) Assistance with Respiratory Ventilation, Less than 24 Consecutive Hours, Continuous Positive Airway Pressure 06/08/2020 12:00:00 AM [facility] Transfusion of Nonautologous Red Blood C ells into Peripheral Vein, Percutaneous Approach 05/25/2020 12:00:[address] [facility] Drainage of Bladder with Drainage Device, Via Natural or Art ificial Opening 05/16/2020 12:00:00 AM [facility] Introduction of Analgesics, Hypnotics, S edatives into Subcutaneous Tissue, Percutaneous Approach 05/16/2020 12:00:00 AM [facility] Introduction of Insulin into Subcutaneous Tissue, Percutaneo us Approach 05/10/2020 12:00:00 AM [facility] Introduction of Anti-inflammatory into R espiratory Tract, Via Natural or Artificial Opening 05/10/2020 12:00:00 AM [facility] Treatment of Musculoskeletal System - Who le Body 05/10/2020 12:00:00 AM [facility] Introduction of Other Therapeutic Substa nce into Peripheral Vein, Percutaneous Approach 05/10/2020 12:00:00 AM [facility] Introduction of Other Anti-infective int o Peripheral Vein, Percutaneous Approach 05/10/2020 12:00:00 AM [facility] Spirometry 12/15/2019 12:00:00 AM JIMENA RODRIGUEZ ([facility], ) Results ID Date Data Source [id number] 11/16/2020 11:12:00 PM EDT [facility] Name Value Range Interpretation Code Description Data Rosa rce(s) Supporting Document(s) SARS coronavirus 2 RNA [Presence] in Res piratory specimen by MIRYAM with probe detection NEGATIVE [facility] This lab was ordered by [facility] a nd reported by [facility]. ID Date Data Source [id number] 11/15/2020 06:35:00 PM EDT [facility] Name Value Range Interpretation Code Description Data Rosa rce(s) Supporting Document(s) SARS coronavirus 2 RNA [Presence] in Res piratory specimen by MIRYAM with probe detection NEGATIVE [facility] This lab was ordered by [facility] a nd reported by [facility]. ID Date Data Source [id number] 11/06/2020 09:28:00 PM EDT [facility] Name Value Range Interpretation Code Description Data Rosa rce(s) Supporting Document(s) SARS-CoV-2 (COVID 19) NEGATIVE - SARS-CoV-2 (COVID19) [facility] This lab was ordered by [facility] a nd reported by [facility]. ID Date Data Source [id number] 11/06/2020 03:54:00 PM EDT [facility] Name Value Range Interpretation Code Description Data Rosa rce(s) Supporting Document(s) SARS-CoV-2 (COVID 19) NEGATIVE - SARS-CoV-2 (COVID19) [facility] This lab was ordered by [facility] a nd reported by [facility]. ID Date Data Source [id number] 11/05/2020 08:28:00 PM EDT [facility] Name Value Range Interpretation Code Description Data Rosa rce(s) Supporting Document(s) SARS coronavirus 2 RNA [Presence] in Res piratory specimen by MIRYAM with probe detection NEGATIVE [facility] This lab was ordered by [facility] a nd reported by [facility]. ID Date Data Source [id number] 10/29/2020 07:58:00 PM EDT [facility] Name Value Range Interpretation Code Description Data Rosa rce(s) Supporting Document(s) SARS coronavirus 2 RNA [Presence] in Res piratory specimen by MIRYAM with probe detection NEGATIVE [facility] This lab was ordered by [facility] a nd reported by [facility]. ID Date Data Source [id number] 10/26/2020 10:19:00 PM EDT [facility] Name Value Range Interpretation Code Description Data Rosa rce(s) Supporting Document(s) SARS coronavirus 2 RNA [Presence] in Res piratory specimen by MIRYAM with probe detection NEGATIVE [facility] This lab was ordered by [facility] a nd reported by [facility]. ID Date Data Source [id number] 10/18/2020 02:44:00 AM EDT [facility] Name Value Range Interpretation Code Description Data Rosa rce(s) Supporting Document(s) SARS-CoV-2 (COVID 19) NEGATIVE - SARS-CoV-2 (COVID19) [facility] This lab was ordered by [facility] a nd reported by [facility]. ID Date Data Source [id number] 10/12/2020 10:15:00 PM EDT [facility] Name Value Range Interpretation Code Description Data Rosa rce(s) Supporting Document(s) SARS coronavirus 2 RNA [Presence] in Res piratory specimen by MIRYAM with probe detection NEGATIVE [facility] This lab was ordered by [facility] a nd reported by [facility]. ID Date Data Source [id number] 10/11/2020 02:34:00 AM EDT [facility] Name Value Range Interpretation Code Description Data Rosa rce(s) Supporting Document(s) SARS coronavirus 2 RNA [Presence] in Res piratory specimen by MIRYAM with probe detection NEGATIVE [facility] This lab was ordered by [facility] a nd reported by [facility]. ID Date Data Source [id number] 10/07/2020 08:36:00 PM EDT [facility] Name Value Range Interpretation Code Description Data Rosa rce(s) Supporting Document(s) SARS-CoV-2 (COVID 19) NEGATIVE - SARS-CoV-2 (COVID19) [facility] This lab was ordered by [facility] a nd reported by [facility]. ID Date Data Source [id number] 10/04/2020 07:47:00 PM EDT [facility] Name Value Range Interpretation Code Description Data Rosa rce(s) Supporting Document(s) SARS coronavirus 2 RNA [Presence] in Res piratory specimen by MIRYAM with probe detection NEGATIVE [facility] This lab was ordered by [facility] a nd reported by [facility]. ID Date Data Source [id number] 10/01/2020 08:07:00 PM EDT [facility] Name Value Range Interpretation Code Description Data Rosa rce(s) Supporting Document(s) SARS coronavirus 2 RNA [Presence] in Res piratory specimen by MIRYAM with probe detection NEGATIVE [facility] This lab was ordered by [facility] a nd reported by [facility]. ID Date Data Source [id number] 09/24/2020 02:20:00 PM EDT [facility] Name Value Range Interpretation Code Description Data Rosa rce(s) Supporting Document(s) SARS coronavirus 2 RNA [Presence] in Res piratory specimen by MIRYAM with probe detection NEGATIVE [facility] This lab was ordered by [facility] a nd reported by [facility]. ID Date Data Source [id number] 09/22/2020 11:07:00 AM EDT [facility] Name Value Range Interpretation Code Description Data Rosa rce(s) Supporting Document(s) SARS-CoV-2 (COVID 19) NEGATIVE - SARS-CoV-2 (COVID19) [facility] This lab was ordered by [facility] a nd reported by [facility]. ID Date Data Source [id number] 09/02/2020 02:38:00 PM EDT [facility] Name Value Range Interpretation Code Description Data Rosa rce(s) Supporting Document(s) SARS-CoV-2 (COVID 19) NEGATIVE - SARS-CoV-2 (COVID19) [facility] This lab was ordered by [facility] a nd reported by [facility]. ID Date Data Source [id number] 08/27/2020 12:00:00 PM EDT [facility] Name Value Range Interpretation Code Description Data Rosa rce(s) Supporting Document(s) SARS coronavirus 2 RNA [Presence] in Res piratory specimen by MIRYAM with probe detection NEGATIVE [facility] This lab was ordered by [facility] a nd reported by [facility]. ID Date Data Source [id number] 08/23/2020 01:29:00 PM EDT [facility] Name Value Range Interpretation Code Description Data Rosa rce(s) Supporting Document(s) SARS-CoV-2 (COVID 19) NEGATIVE - SARS-CoV-2 (COVID19) [facility] This lab was ordered by [facility] a nd reported by [facility]. ID Date Data Source [id number] 08/17/2020 06:30:00 PM EDT [facility] Name Value Range Interpretation Code Description Data Rosa rce(s) Supporting Document(s) SARS coronavirus 2 RNA [Presence] in Res piratory specimen by MIRYAM with probe detection NEGATIVE [facility] This lab was ordered by [facility] a nd reported by [facility]. ID Date Data Source [id number] 08/13/2020 01:19:00 AM EDT [facility] Name Value Range Interpretation Code Description Data Rosa rce(s) Supporting Document(s) SARS coronavirus 2 RNA [Presence] in Res piratory specimen by MIRYAM with probe detection NEGATIVE [facility] This lab was ordered by [facility] a nd reported by [facility]. ID Date Data Source [id number] 06/14/2020 04:54:00 PM EDT [facility] Patient: ELA PONCE Observatio n Report - Physicians/Mid Levels . [facility].VisitID: [id number] [place] [address] [phone], FRegistration Date/Time: 05/10/2020 11:01 Weight:52.1 kg (E). Height/Length:62 inches (E). BMI:21 PAST HISTORYProblems:Diabetes Mellitus.COPD - Chronic Obstructive Pulmonary Disease.Constipation.Pneumonia.Lung Disease.Hypertension. 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 FAMILY HISTORYNegative. No significant family medical history. (Electronically signed by Sebastian Kingston 05/10/2020 18:30) Name Value Range Interpretation Code Description Data Rosa rce(s) Supporting Document(s) ID Date Data Source [id number] 06/14/2020 03:44:00 PM EDT [facility] Name Value Range Interpretation Code Description Data Rosa rce(s) Supporting Document(s) SARS-CoV-2 (COVID 19) NEGATIVE - SARS-CoV-2 (COVID19) [facility] This lab was ordered by [facility] a nd reported by [facility]. ID Date Data Source [id number] 06/12/2020 11:27:00 AM EDT [address] [id number] NOTE FOLLOW UPPATIENT NAME: ELA PONCE CB PHYSICIAN: MICHAEL WANG MDAUTHOR: Selma Caballero. DATE: 05/18/20 MR#: [id number] NOTE DATE: 06/12/20 RM#: [id number] TIME: 112 : 45Progress Note Follow UpSummaryPrescription filled and family and patient's request for Plavix 75 mg p.o.daily levothyroxine 75 mcg p.o. daily hydroxyzine 10 mg 3 times daily as neededfor anxiety. Lisinopril was not filled at the family's request due to renaldysfunction and hyperkalemia. I called and spoke with the pharmacist aboutthis personally at [facility] and this order is being canceled.DATE SIGNED: 06/12/20 Electronically SignedTIME SIGNED: [id number]TY Name Value Range Interpretation Code Description Data Rosa rce(s) Supporting Document(s) ID Date Data Source [id number] 06/11/2020 07:45:00 PM EDT [address] [id number] SUMMARYPATIENT NAME: ELA PONCE MR#: [id number] PHYSICIAN: MICHAEL WANG MDAUTHOR: Georgia Denis DO DATE: 05/18/20 RM#: [id number] DATE: 06/11/20 : 45Summary of HospitalizationReason for AdmissionTransfer [facility] for MRIHospital CoursePatient is 74 years old female with past medical history significant for COPD,spinal stenosis, anxiety/depression, dyslipidemia, type 2 diabetes, nicotinedependence, hypothyroidism, CKD, peripheral vascular disease and nicotinedependence who was initially admitted at [facility] for sepsis treatmentsecondary to pneumonia. Patient had extreme deconditioning, unsteady gait andfrequent falls. Patient was noted to have severe tenderness over lumbar andthoracic spine in kassidy setting of worsening CRP and leukocytosis. [facility] to rule out discitis.Upon arrival at the [facility], patient refused MRI andpatient was brought back to [facility]. At [facility], patient becameagitated and combative and patient was given B52. Patient was found to have UTIwith suspision of pylonephritis. Patient started on vanco/zosyn. [facility]. Patient continued on broad spectrum antibiotics whilewaiting for cultures. Attempts of MRI were not successful due to frequentagitation. MRI later was performed and demonstrated no evidence of discitis.Patient's worsening pain was likely due to subacute vertevral body fracture.MRSA screening was negative. Vanco was discontinued. CRP continuesdowntrending. Blood cultures came back negative. Patient was planned fordischarging back to [facility] to continue short-term rehab. However, therewas no bed availability. Patient finished course of antibiotic for herinfection. Patient continued demonstrating poor functional status requiring PT.Case management continued assisting on subacute rehab placement. Patient becameupset because she could not go home safety requiring subacute rehab and therewas no rehab available. Patient was found to have low RBC. No active bleedingnoted. Work-up demonstrated anemia of chronic disease. 2PRBC was transfusedafter obtaining consent. Continuing waiting for [facility] short term rehab bedas per patient's wish. Patient continued complaining about her chronic back.Patient required asistant for her daily acitivity functions. Patient was foundto have fall on 06/07. Patient was walking to bed-side commode without notifyingstaffs. Patient was found to labored breathing with hypoxia requiring higheroxygen support. Urgent workups performed and patient was transferred to ICU forfurther management. CT head was negative. Patient was found to have hypoxiasecondary to pleural effusion and COPD exacerbations. BiPAP ordered but patientrefused. Patient started on IV Solu-Medrol and breathing treatment for COPDexacerbation and patient started on IV Lasix for diuresis. Patient oxygenrequirement continue to improve and patient's oxygen requirement returned toher baseline. IV Lasix discontinued. However patient demonstrated worseningrenal function secondary to IV diuresis. Patient was placed on intermittent IVfluid for monitoring input output and renal function closely. Patient renalfunction gradually improved with medical managements. During thishospitalization, patient and her son have demonstrated worsening frustrationswith regarding to prolonged hospitalization stay while waiting for subacuterehab arrangement. Patient and her son agreed for subacute rehab facility [facility] or [facility] if it is available. Case management had sent outreferrals to broaden the search. Unfortunately, patient became unhappy on 06/11/2020 with regarding to her hospitalization stay. Patient contracted her son kinza to [facility] and bring her home. Risks and benefits of AMA explained explicitl yto patient and her son. They voiced understandings of the risks and benefitsbut they insisted on signing out AMA.Decision was made to initially transfer patient to [facility] for an MRI to be doneto rule out discitis and then [facility] patient refused the MRI and patient was broughtback to [facility]. At [facility] patient became agitated and somewhatcombative sustained ecchymosis in bilateral upper extremities. Patient had momo given B-52. Decision was made to transfer patient to [facility] for furthermanagement. In route to [facility] again for the second time patient becameagitated. At [facility] patient was also found to have UTI, CT of theabdomen and pelvis showed some questionable/possible pyelonephritis. Patientwas given vancomycin and Zosyn at [facility] and transferred to [facility].When I evaluated patient patient was completely sedated and was unable to giveany history, as she was given B-52 and Ativan prior to arrivi ng here. Historyobtained from medical records.Procedures & Relevant StudiesStudiesMRI L-SPINE W/O FOL BY W/ CDATE OF EXAMINATION: 05/22/2020 9:00 EDTMRI L-SPINE W/O FOL BY W/ CONTHISTORY: TendernessMulti-echo, multiplanar imaging of the lumbar spine was obtainedwithout and with contrast .FINDINGS:Decreased signal intensity on T2-weighted images is present in thelumbar intervertebral discs. The L3-4 through L5-S1 intervertebraldiscs are decreased in height. These findings are consistent with discdegeneration.I there is no disc bulge or herniation at the L1-2 level. The B7yglhoi exit the neural foramina without compression.A diffuse disc bulge is present at the L2-3 level. There ishypertrophy of the ligamenta flava and posterior articulating facets.A 4 mm synovial cyst is present medial to the left L2-3 facet joint.These findings produce moderate central canal stenosis. The L2 nervesexit the neural foramina without compression.A diffuse disc bulge is present at the L3-4 level. There ishypertrophy of the ligamenta flava and posterior articulating facets.These findings produce mild central canal stenosis. The L3 nerves exitthe neural foramina without compression.A diffuse disc bulge is present at the L4-5 level. There ishypertrophy of the ligamenta flava and posterior articulating facets.There are 7 mm of grade 1 spondylolisthesis of L4 on 5. These findingsproduce severe central canal stenosis. There is compression of theright L4 nerve in the neural foramen. The left L4 nerve exits theneural foramen without compression.A diffuse disc bulge is present at the L5-S1 level. There is minimalcompression of the thecal sac. There is hypertrophy of the posteriortechnique and facets. The L5 nerves exit the neural foramina withoutcompression.The conus medullaris is normal in appearance terminating at the levelof the L1 vertebral body. Increased signal intensity on T2- weightedimages is present in the endplates of the L5 and S1 vertebral bodies.This represents degenerative change. A linear focus of decreased andincreased signal intensity on T1 and T2-weighted images respectivelyis present in the superior aspect of the S2 vertebral body. There is amild heterogeneous enhancement with contrast. This most likelyrepresents an acute to subacute fracture.IMPRESSION:1. Moderate central canal stenosis at the L2-3 level secondary to discbulge, ligamentous and facet hypertrophy and a synovial cyst.2. Mild central canal stenosis at the L3-4 level secondary to discbulge, ligamentous and facet hypertrophy.3. Severe central canal stenosis at the L4-5 level secondary to discbulge, ligamentous and facet hypertrophy and grade 1spondylolisthesis. There is compression of the right L4 nerve in theneural foramen.4. Diffuse disc bulge at the L5-S1 level with minimal thecal saccompression.5. There is a linear focus of decreased and increased signal intensityon T1 and T2-weighted images respectively in the superior aspect ofthe S2 vertebral body. There is mild heterogeneous enhancement withcontrast. This most likely represents an acute to subacute fracture.MRI T-SPINE W/O FOL BY W/ CDATE OF EXAMINATION: 05/22/2020 9:00 EDTMRI T-SPINE W/O FOL BY W/ CONTHISTORY: TendernessMulti-echo, multiplanar imaging of the thoracic spine was obtainedwithout and with contrast .FINDINGS:A disc bulge is present at the T3-4 level. There is minimal effacementof the thecal sac without spinal cord compression. The T3 neuralforaminaare patent.A small central disc protrusion is present at the T4-5 level. Thereis minimal effacement of the thecal sac without spinal cordcompression. The T4 neural foramina are patent.A small central disc protrusion is present at the T5-6 level. Thereis minimal effacement of the thecal sac without spinal cordcompression. The T5 neural foramina are patent.A small right paracentral and intraforaminal disc protrusion arepresent at the T8- 9 level. There is hypertrophy of the posteriorarticulating facets. There is minimal effacement of the thecal sacwithout spinal cord compression. The T8 and neural foramina are notseen.A disc bulge is present at the T9-10 level. There is hypertrophy ofthe posterior articulating facets. There is mild effacement of thethecal sac without spinal cord compression. There is compression ofthe right T9 nerve in the neural foramen. The left T9 neural foramenis patent.There is no other disc bulge or herniation. The remaining neuralforamina are patent. The spinal cord is normal in signal intensity.There is loss of height of the T3-4 and through T9-10 intervertebraldiscs. This represents disc degeneration. Increased signal intensityon T2-weighted images is present in the endplates of the T3-4 throughT9-10 intervertebral discs. There is slight enhancement in theendplates of several thoracic vertebral bodies. These findingsrepresent degenerative change. There is no subluxation. A lipoma ispresent in the left posterior subcutaneous tissues at the T5-6 level.The lipoma measures 3.1 cm in transverse by 1.2 cm in AP dimensions.IMPRESSION:1. Small disc protrusions at the T3-4 through T5-6 and T8-9 levelswithout spinal cord compression.2. Disc bulge at the T9-10 level without spinal cord compression.There is compression of the right T9 nerve in the neural foramen.3. There is a small lipoma in the left posterior subcutaneous tissuesat the T5-6 level.CHEST SINGLE VIEWDATE OF EXAMINATION: 05/30/2020 9:04 EDTCHEST SINGLE VIEWHISTORY: WeaknessTECHNIQUE: Single frontal radiograph of chestCOMPARISON: None.FINDINGS:Moderate COPD and interstitial parenchymal scarring is noted. Moreconfluent parenchymal disease in the peripheral aspect of right upperlobe is consistent with pneumonia. In the absence of old CT and plainradiographs this should be followed to complete resolution and can bemore accurately assessed with a CT scan. There are no pleuraleffusions. Cardiomediastinal contours appear normal. There is a rightcentral line in place with is tip in the midsuperior vena cava.IMPRESSION:Confluent parenchymal disease in the right upper lobe just forpneumonia. Follow-up to resolution and or a CT scan of the chest isencouraged.CHEST SINGLE VIEWDATE OF EXAMINATION: 06/07/2020 15:20 EDTCHEST SINGLE VIEWHISTORY: HypoxiaTECHNIQUE: Single frontal radiograph of chestCOMPARISON: 05/30/2020FINDINGS:Right upper lobe parenchymal disease is unchanged. Cardiac silhouetteand pulmonary vascularity is within normal limits. Lungs are otherwiseclear.IMPRESSION:Persistent parenchymal disease in the right upper lobe withoutinterval change. Continued follow-up to resolution is encouraged.CT BRAIN W/O CONTRASTDATE OF EXAMINATION: 06/07/2020 16:29 EDTCT BRAIN W/O CONTRASTINDICATION: Altered mental status, fallCOMPARISON: None.This CT exam was performed using the following dose reductiontechniques: Automated exposure control, adjustment of mA and/or kVaccording to the patient's size, and use of iterative reconstructiontechnique.TECHNIQUE: Axial images were obtained from the heath magnum to thevertex.FINDINGS: The basal cisterns cortical sulci and ventricles areprominent consistent with atrophic change. There is decreasedattenuation of the periventricular white matter, consistent with smallvessel ischemic disease. There is no mass effect or midline shift. Nointracranial bleeds. No intra or extra-axial collections. Thecalvarium and extracranial soft tissues are unremarkable. Thevisualized paranasal sinuses are well aerated.IMPRESSION:Atrophic changes with periventricular leukomalacia. No acuteintracranial abnormalities.CT ANGIO CHEST WITH IV FOR PDATE OF EXAMINATION: 06/07/2020 16:29 EDTCT ANGIO CHEST WITH IV FOR PEHISTORY: HypoxiaThis CT exam was performed using the following dose reductiontechnique: automated exposure control, adjustment of mA and/or kVaccording to the patient's size, and use of iterative reconstructiontechnique.Standard contiguous axial spiral imaging was obtained with dynamicintravenous contrast administration and pulmonary arterial phaseimaging from the lung apices through the lung bases and with coronalreformatting.FINDINGS:Pulmonary Arteries: No filling defects within the pulmonary arterialsystem to suggest the presence of pulmonary embolic disease.Aorta: No dissection or aneurysm. There is atherosclerotic change.Lungs: Centrilobular emphysematous change. There is scarring andbronchiectasis. There is atelectatic change in both lower lobesadjacent to the pleural effusions. There is a 1 cm focal opacity inthe right upper lobe with extension to the pleural surface and slightcavitation.Pleural Space: Small bilateral pleural effusions. There is an areathickening with adjacent parenchymal disease in the right lateralhemithorax. This may represent thickening and associated scarring..Heart: There are coronary artery calcifications. Left ventricular walldoes appear slightly thickened.Lymph nodes:There is a 1.3 cm AP window node and 1 cm azygous node.There is an 8.2 mm left periaortic nodeSoft Tissues: UnremarkableBones/joints:There is degenerative change throughout the thoracicspine with disc space narrowing, endplate sclerosis, and smallosteophytes at multiple levels. The bones are osteopenic. No bonylytic or blastic lesions.Upper Abdomen:There are calcified hepatic and splenic granuloma. Noadrenal masses.IMPRESSION:No evidence of pulmonary embolic disease.Centril obular emphysematous change. There are bilateral pleuraleffusions with bibasilar atelectasis. There is scarring andbronchiectasis. There is focal pleural thickening in the right upperlobe laterally with adjacent parenchymal lung disease. This mayrepresent scarring however short-term follow-up, 3 to 6 months isrecommendedAdditional NotesEchocardiogram CompleteAdult Echocardiogram ReportName: ELA PONCE BStudy Date: 06/08/[id number]: 1945 Gender: FemaleAge: 74 yrs Weight: 119 lbBSA: 1.6 m2 Height: 67 inBP: 125/47 mmHgReason For Study: RESPIRATORY FAILURE WITH PLEURAL EFFUSIONHistory: No prior cardiac interventionOrdering Physician: Parmjit DENISformed By: Shelly Dao, SONJA, RCCSProcedureA complete two-dimensional transthoracic echocardiogram was performed(2D, M-mode, spectral and color flow Doppler). Quality of study:adequate.Measurements with Normals IVSd: 1.2 cm(0.6-1.1 cm) LVIDd: 3.9 cm(3.5-5.7 cm)LVPWd: 1.2 cm(0.6-1.1 cm) LVIDs: 2.9 cm(2.3-3.6 cm)LA dimension: 3.5 cm(1.9-4.0 cm) Ao root diam: 2.9 cm(2.0-3.9 cm)asc Aorta Diam: 2.8 cm(2.0-3.2cm)Doppler with NormalsMMode/2D Measurements & CalculationsACS: 1.2 cmLVOT diam: 2.0 cmEDV(MOD-sp4): 55.0 mlLVLs ap4: 6.7 cmESV(MOD-sp4): 28.0 mlEF(MOD-sp4): 49.1 %EF(MOD-sp2): 61.9 %SV(MOD-sp4): 27.0 mlDoppler Measurements & CalculationsMV V2 max: 157.5 cm/secMV max P.9 mmHgMV V2 mean: 95.3 cm/secMV mean P.2 mmHgMV V2 VTI: 42.7 cmMV P1/2t: 80.6 msecMVA(P1/2t): 2.7 cm2Ao V2 max: 177.8 cm/secAo max P.6 mmHgAo mean P.8 mmHgAo V2 mean: 115.6 cm/secAo V2 VTI: 36.6 cmLeft VentricleNormal left ventricular chamber size with an estimated ejectionfraction of 50-55 %. There is mild concentric left ventricularhypertrophy. Grade I diastolic dysfunction, (abnormal relaxationpattern). There is basal inferior wall severe hypokinesis.Right VentricleThe right ventricle is normal in size and function.Left AtriumThe left atrial size is normal. The interatrial septum is intact withno evidence for an atrial septal defect.Right AtriumRight atrial size is normal.Aortic ValveDegenerative changes of the Aortic Valve without significant gradient.No aortic stenosis. No aortic regurgitation is present.Mitral ValveThere is mild mitral valve thickening. Mitral inflow velocity isnormal. There is no mitral valve stenosis. There is trace mitralregurgitation.Tricuspid ValveThe tricuspid valve is not well visualized. No tricuspidregurgitation. There is no tricuspid stenosis.Pulmonic ValveThe pulmonic valve is not well visualized. There is no pulmonicvalvular regurgitation. There is no pulmonic valvular stenosis.ArteriesThe aortic root is normal size. Ascending aorta normal size.VenousThe inferior vena cava is mildly dilated with a decrease ininspiratory collapse. Dilated IVC consistent with elevated RApressure.EffusionThere is no pericardial effusion.Interpretation SummaryNormal left ventricular chamber size with an estimated ejectionfraction of 50-55 %.There is mild concentric left ventricular hypertrophy.Grade I diastolic dysfunction, (abnormal relaxation pattern).There is basal inferior wall severe hypokinesis.The right ventricle is normal in size and function.Degenerative changes of the Aortic Valve without significant gradient.There is mild mitral valve thickening.There is trace mitral regurgitation.The inferior vena cava is mildly dilated with a decrease ininspiratory collapse.Dilated IVC consistent with elevated RA pressure.Diagnoses (Current Visit)Problem List1. SU (acute kidney injury)2. Spinal stenosis3. PVD (peripheral vascular disease)4. Acute and chronic respiratory failure5. Diabetes6. Hypoglycemia7. Fall8. Chronic obstructive pulmonary disease with hypoxia9. Wexsovamkg75. Zstkzsg38. Anemia of chronic jvrabti98. Vctumbxrsws88. HypothyroidismDiagnoses (Other)Past Pertinent History1. Diabetes2. Chronic obstructive pulmonary disease with hypoxia3. Depression4. Spinal stenosis5. Anxiety6. Anemia of chronic disease7. Hypothyroidism8. PVD (peripheral vascular disease)9. Zdtsgbbo30. Chronic anemiaPatient's Discharge ConditionVital SignsVital Signs-LastResult Date TimePulse Ox 95 06/11 1355B/P 145/65 06/11 1355O2 Delivery Nasal cannula 06/11 1355O2 Flow Rate 3L 06/11 1355Temp 97.7 06/11 1355Pulse 70 06/11 1355Resp 17 06/11 1355Patient's Discharge ConditionDischarge Date 06/11/20Discharge Conditon other (Guarded. )Discharge DispositionPatient signed out AMAPhysical ExaminationGeneral Appearance afebrile, alert, awake, conversantHead atraumatic, normocephalicENT dry mucosal membranesNeck no JVDCardiovascular regular rate, normal heart soundsRespiratory on oxygen (3L ), decreased breath sounds, ralesAbdomen soft, non-tender, no distention, normal bowel sounds, no guardingUrinary no bladder distention, no flank painExtremities no cyanosis, no edema, normal pulses, Pedal pulses +1 bilaterallyfeet are warm and well perfused.Neurological Unable to evaluatePsych/Mental Status unable to evaluatePatient/Family InstructionsPrescriptionsStop taking the following medications:PredniSONE (PREDNISONE) 10 MG [id number] MILLIGRAM Orally DAILYReferralsOrdered Referrals[facility] First available [id number] [place], [place] [id number] [facility], [facility].Time spent by provider to complete discharge > 30 minutesDATE SIGNED: 06/11/20 Electronically SignedTIME SIGNED: 2126 GEOR[place]IA DENIS DO Name Value Range Interpretation Code Description Data Rosa rce(s) Supporting Document(s) ID Date Data Source [id number] 06/11/2020 06:31:00 PM [facility] Name Value Range Interpretation Code Description Data Rosa rce(s) Supporting Document(s) GLU 128 mg/dL 70-110 [facility] Patients taking Sulfasalazine may have f alsely depressedGlucose levels. Patients taking Sulfapyridine may havefalsely elevated Glucose levels. Patients should be drawnfor Glucose before the initial administration of eitherdrug. BUN 74 mg/dL 7-23 [facility] CRE 2.170 mg/dL 0.500-1.300 H [facility] GFR 24 mL/min [facility] CHLORIDE 108 mmol/L 99-110 [facility] NA 142 mmol/L 136-147 [facility] POTASSIUM 5.5 mmol/L 3.5-5.1 H [facility] TCO2 24 mmol/L 20-33 [facility] ANION GAP 15.5 10.0-20.0 [facility] CA 8.3 mg/dL 8.3-10.7 [facility] ID Date Data Source [id number] 06/11/2020 04:59:00 PM EDT [facility] Name Value Range Interpretation Code Description Data Rosa rce(s) Supporting Document(s) FGLU 139 mg/dL 70-110 [facility] ID Date Data Source [id number] 06/11/2020 12:28:00 PM EDT [facility] [place] [address] [id number] NOTEPATIENT NAME: RENAY PONCEHE BATTENDING PHYSICIAN: MICHAEL WANG MDAUTHOR: Shankar Denis DO. DATE: 05/18/20 MR#: [id number] NOTE DATE: 06/11/20 RM#: [id number] TIME: 1535 : 45SubjectiveEvents Since Last EntryPatient seen and examined in room today. Patient denies acute complaints.Patient is currently on 3 L nasal cannula, and patient denies any difficultybreathing. Patient does admit that she has not been drinking enough fluid likeshe did few days ago. Denies any fever or chill.ObjectiveVital SignsVital Signs-24 HRS06/10606 2000 2023 2138 2200Temp 98.7 99.2 98.5Pulse 69 74 77Resp 13 16B/P 125/55 137/50 130/88B/P MeanPulse Ox 96 95O2 Delivery Nasal cannulaO2 Flow Rate 5GRyM780/06/11 [id number] 0560 0400 0631 0804Temp 97.9 97.9 98.5 97.9Pulse 74 74Resp 17B/P 163/72 163/72B/P MeanPulse Ox 95O2 Delivery Nasal cannulaO2 Flow Rate 7XQyG340/06/11/854052 4736 0924 0942Temp 97.7Pulse 74 72Resp 20B/P 163/72 163/72 150/63B/P MeanPulse Ox 94O2 Delivery Nasal cannula Nasal cannulaO2 Flow Rate 3L 1TVbS2Frumuq/OutputIntake/Output Summary 24 hours06/10 1900 06/11 0700Intake Total 1100 1800Output Total 250 500Balance 850 1300Intake, IV 500 1200Intake, Oral 600 600Output, Urine 250 500Current MedicationsAmlodipine Besylate (Norvasc) 10 MG DAILY POClopidogrel Bisulfate (Plavix) 75 MG DAILY PODuloxetine HCl (Cymbalta) 60 MG DAILY POFolic Acid (Folvite) 1 MG DAILY POInsulin Detemir (Levemir) 15 UNIT DAILY SUBCUT (CAN)Insulin Detemir (Levemir) 20 UNIT QAM SUBCUTIsosorbide Mononitrate (Imdur) 120 MG DAILY POLevothyroxine Sodium (Synthroid) 75 MCG DAILY POMultivitamins (Multivitamin) 1 TAB DAILY PONicotine (Nicoderm) 14 MG DAILY TOPThiamine HCl (VITAMIN B1) 100 MG DAILY POInsulin Aspart (Humalog Insulin) Low dose sliding scaleAC MEAL SUBCUTSodium Chloride (NSS 0.9% 500ML) 1,000 ML .Q10H IV ( CAN)Albuterol Sulfate (Ventolin) 2 PUFFSQID INHAtorvastatin Calcium (Lipitor) 40 MG QHS POBuspirone HCl (Buspar) 5 MG BID POChlorhexidine Gluconate (Chlorhexidine Gluconate) 0 BID MMCyclobenzaprine HCl (Flexeril) 5 MG TID POFerrous Sulfate (Iron) 325 MG BID POGabapentin (Neurontin) 300 MG TID POHeparin Sodium (Porcine) (Heparin Sodium) 5,000 UNIT Q12H SUBCUTHydralazine HCl (Apresoline) 50 MG TID POInsulin Aspart (Humalog Insulin) 0 QHS SUBCUTMetoprolol Tartrate (Lopressor) 75 MG BID POMiconazole (Monistat-7) 0 BID VAGMiscellaneous (Patch off) 1 PAT QHS NANystatin (Mycostatin,Nilstat Powder) 1 GMTID TOPPantoprazole Sodium (Protonix) 40 MG BID POPrednisone (Orasone) 40 MG BID POSodium Chloride (Saline Flush S yr(10ML)) 10 ML Q12H IVAcetaminophen (Tylenol) 650 MG Q6HPRN PRN POAcetaminophen (Tylenol) 650 MG Q6HPRN PRN POAlbuterol/Ipratropium (Duoneb) 3 ML Q6HWA PRN INHGlucose (Insta-Glucose) 15 GM DAILY NEEDED PRN POGlucose (Insta-Glucose) 15 GM DAILY NEEDED PRN POOxycodone HCl (Oxyir) 5 MG Q8HPRN PRN POSenna/Docusate Sodium (Senokot S) 2 TAB QHSPRN PRN POSodium Chloride (Saline Flush Syr(10ML)) 10 ML QIDPRN PRN IVExamGeneral Appearance no acute distress, afebrile, alert, awake, conversantHead atraumatic, normocephalicENT dry mucosal membranesNeck no JVDCardiovascular regular rate, normal heart soundsRespiratory on oxygen (3L ), accessory muscle use, decreased breath sounds,ralesAbdomen soft, non-tender, no distention, normal bowel sounds, no guardingUrinary no bladder distention, no flank painExtremities no cyanosis, no edema, normal pulses, Pedal pulses +1 bilaterallyfeet are warm and well perfused.Muscoskeletal full range of motion, normal inspectionNeurological Unable to evaluatePsych/Mental Status unable to evaluateResultsLaboratory DataRecent Labs-24 hours06/10943 0457 0756 1104ChemistrySodium (136 - 147 mmol/L) 139 140Potassium (3.5 - 5.1 mmol/L) 5.4 H 5.2 HChloride (99 - 110 mmol/L) 105 106Serum Bicarbonate (20 - 33 mmol/L) 26 26Anion Gap (10.0 - 20.0) 13.4 13.2BUN (7 - 23 mg/dL) 65 H 68 HCreatinine (0.500 - 1.300 mg/dL) 2.010 H 1.860 HEstimated GFR/1.73 m2 (mL/min) 26 28Glucose (70 - 110 mg/dL) 313 H 250 HPOC Glucose (70 - 110 mg/dL) 384 H 256 HCalcium (8.3 - 10.7 mg/dL) 8.0 L 8.2 LHematologyWBC (4.0 - 10.5 x10E3/uL) 12.30 HRBC (4.20 - 5.40 x10E6/uL) 3.57 LHgb (12.0 - 16.0 g/dL) 10.8 LHct (37.0 - 47.0 %) 34.1 LMCV (81.0 - 99.0 fL) 95.5MCH (27.0 - 31.0 pg) 30.3MCHC (32.7 - 35.6 g/dL) 31.7 LRDW (11.5 - 14.0 %) 17.2 HPlt Count (150 - 450 x10E3/uL) 220MPV (6.9 - 9.5 fl) 9.8 HImmature Gran % (Auto) (0.1 - 2.0 %) 0.8Neut % (Auto) (34 - 64 %) 94.5 HLymph % (Auto) (25 - 45 %) 2.2 LMono % (Auto) (1.7 - 10.6 %) 2.4Eos % (Auto) (0.4 - 7.0 %) 0 LBaso % (Auto) (0.1 - 2.0 %) 0.1Abs Immat Gran (auto) (0.0 - 0.1 0.03a41O7/uL)Absolute Neuts (auto) (1.2 - 7.6 11.62 Hx10E3/uL)Absolute Lymphs (auto) (1.0 - 3.5 0.27 Lx10E3/uL)Absolute Monos (auto) (0.1 - 1.0 0.14u39Z7/uL)Absolute Eos (auto) (0.1 - 0.7 x10E3/uL) 0.00 LAbsolute Basos (auto) (0.0 - 0.1 0.85c08H8/uL)Nucleated RBC % (auto) (0 %) 0Assessment/PlanProblem List1. SU (acute kidney injury)A&P- Patient had respiratory failure with hypoxia. CT demosntrated bilateralpleural effusions.- Patient was started on BiPAP but patient was not tolerating it. Patient wason IV lasix with diuresis.- Respiratory status imprved. IV lasix discontinued. However, patientdemonstrating SU secondary to overdiuresis.- Continue monitoring I&O. Continue holding lisinopril. Continue IV fluid basedon patient's fluid status.2. Acute and chronic respiratory failureA&P- Patiient was on 3L oxygen for her COPD at home- ABG revewied. CT angiogram reviewed. CT demonstrated effusion with bilateralatelectasis. CT also demonstrated lung sca rring and emphysematous change.- Patient could not tolerate BiPAP. S/P IV lasix. Currently patient's oxygenrequirement is at her baseline. Continue tapering steroid. Continue breathingtreatments.3. DiabetesStatus ChronicA&P- Patient was on IV solumedrol for COPD and respiratory failure.- Taper steroid; Switch IV soludedrol to PO prednisone. Increase levemir.Continue insulin sliding scale. Continue consistent carbohydrate diet.4. HypoglycemiaStatus AcuteOnset Date 06/08/20A&P- IV solumedrol started for patient's respiratory failure.- Continue sliding scale. Continue levemir. Continue consistent carbohydratediet.5. Ramon&P- Patient has been on plavix for PVD and heparin for DVT prophylaxis.- On 06/05, patient try to walk to bedside commode without notifying nursingstaffs. Patient was seen shortly after the event. Patient landed on [place]. Patient denied hitting her head.- CT head was negative for acute finding.6. Chronic obstructive pulmonary disease with hypoxiaStatus AcuteOnset Date 06/08/20A&P- Currently patient is on 3-3.5L at rest.- Continue steroid taper. Continue breathing treatments.7. DepressionStatus ChronicA&P- Continue Cymbalta8. Spinal stenosisStatus Chronic9. AnxietyStatus AcuteA&P- Continue Buspar.10. Anemia of chronic diseaseStatus AcuteA&P- Continue monitoring HH.11. CandidiasisStatus AcuteA&P- Continue miconazole vaginal cream.12. HypothyroidismStatus ChronicA&P- Continue synthroid.13. PVD (peripheral vascular disease)Status ChronicA&P- Continue Plavix and lipitor.- Patient needs to follow up with her vascular surgery after discharge.Additional NotesDisposition planning: Case management is assisting on subacute facilityapplication. long discussion with patient's son, Mr. Braden, in ICU on 06/09/2020in the presence of case management. Mr. Braden is able to arrange 24/7 supportfor patient after discharge. Patient and Mr. Braden agree for outpatient servicessuch as PT. Patient also has wheelchair and walker available at home. They willconsider subacute arrangement is available in the future.Discussed with Mr. Braden, over the phone on 06/11/2020 with regarding to patient'srespiratory improvement and patient's need for medication adjustment s.Barrier for discharge: Optimizing renal function. Adjustment of steroid andlevemir.Resuscitation status Full codeProlong Service Time* 30 minutes of prolong [id number] time spent with patient's son, Mr. Braden.* Discussed: Currently medical management and discharge planning.VTE ProphylaxisVTE Prophylaxis: Continue heparin.DATE SIGNED: 06/11/20 Electronically SignedTIME SIGNED: 2126 GEORGIA DENIS DO Name Value Range Interpretation Code Description Data Rosa rce(s) Supporting Document(s) ID Date Data Source [id number] 06/11/2020 11:09:00 AM [facility]T [facility] Name Value Range Interpretation Code Description Data Rosa rce(s) Supporting Document(s) FGLU 256 mg/dL 70-110 [facility] ID Date Data Source [id number] 06/11/2020 08:25:00 AM EDT [facility] jer Name Value Range Interpretation Code Description Data Rosa rce(s) Supporting Document(s) FGLU 384 mg/dL 70-110 [facility] ID Date Data Source [id number] 06/11/2020 05:53:00 AM EDT [facility] jer Name Value Range Interpretation Code Description Data Rosa rce(s) Supporting Document(s) GLU 250 mg/dL 70-110 [facility] Patients taking Sulfasalazine may have f alsely depressedGlucose levels. Patients taking Sulfapyridine may havefalsely elevated Glucose levels. Patients should be drawnfor Glucose before the initial administration of eitherdrug. BUN 68 mg/dL 7-23 [facility] CRE 1.860 mg/dL 0.500-1.300 [facility] GFR 28 mL/min [facility] CHLORIDE 106 mmol/L 99-110 [facility] NA 140 mmol/L 136-147 [facility] POTASSIUM 5.2 mmol/L 3.5-5.1 H [facility] TCO2 26 mmol/L 20-33 [facility] ANION GAP 13.2 10.0-20.0 [facility] CA 8.2 mg/dL 8.3-10.7 L [facility] ID Date Data Source [id number] 06/11/2020 05:47:00 AM EDT [facility] Name Value Range Interpretation Code Description Data Rosa rce(s) Supporting Document(s) WBC 12.30 x10E3/uL 4.0-10.5 [facility] RBC 3.57 x10E6/uL 4.20-5.40 L [facility] Hemoglobin 10.8 g/dL 12.0-16.0 L [facility] Hematocrit 34.1 % 37.0-47.0 L [facility] MCV 95.5 fL 81.0-99.0 [facility] MCH 30.3 pg 27.0-31.0 [facility] MCHC 31.7 g/dL 32.7-35.6 L [facility] RDW 17.2 % 11.5-14.0 [facility] Platelet count 220 x10E3/uL 150-450 [facility] MPV 9.8 fl 6.9-9.5 [facility] Neutrophils 94.5 % 34-64 [facility] Lymphocytes 2.2 % 25-45 L [facility] Monocytes 2.4 % 1.7-10.6 [facility] Eosinophils 0 % 0.4-7.0 [facility] Basophils 0.1 % 0.1-2.0 [facility] Imm. Gran. 0.8 % 0.1-2.0 N [facility] Abs. Neutro. 11.62 x10E3/uL 1.2-7.6 [facility] Abs. Lymph. 0.27 x10E3/uL 1.0-3.5 [facility] Abs. Curry. 0.30 x10E3/uL 0.1-1.0 [facility] Abs. Eosin. 0.00 x10E3/uL 0.1-0.7 [facility] Abs. Baso. 0.01 x10E3/uL 0.0-0.1 [facility] Abs. Imm. Gran. 0.10 x10E3/uL 0.0-0.1 [facility] spital ANRBC% 0 % 0 [facility] DIFFERENTIAL CONFIRMED BY SLIDE REVIEW. ID Date Data Source [id number] 06/11/2020 01:54:00 AM EDT [facility] Patient: ALFREDO PONCENCHE B Observatio n Report - Physicians/Mid [place] [address].VisitID: [id number] [place] [address] [phone], FRegistration Date/Time: 05/18/2020 13:00 Weight:52.1 kg (E). Height/Length:62 inches (E). BMI:21 PAST HISTORYMedications:Albuterol Sulfate Inhalation 2 puffs, 4x a day as needed, last dose unk.ALPRAZolam Oral 1 mg, daily, last dose this am.amLODIPine Besylate Oral 10 mg, daily, last dose unk.Atorvastatin Calcium Oral 40 mg, daily every PM, last dose unk.Budesonide Inhalation, daily, last dose unk.Clopidogrel Bisulfate Oral 75 mg, daily, last dose unk.DULoxetine HCl Oral (Capsule Delayed Release Sprinkle 60 mg), daily every PM, last dose unk.hydrALAZINE HCl Oral (Tablet 50 mg) 1 tablet, 2x a day, last dose unk.Insulin Glargine Subcutaneous 20 units, daily, last dose a couple days ago.Levothyroxine Sodium Oral 75 mcg, daily, last dose unk.Lisinopril Oral 40 mg, daily, last dose unk.oxyCODONE HCl Oral 20 mg, 2x a day, last dose unk. Allergies:Bacitracin.(itching)Cortisone.(itching)Fluoxetine.Neomycin.Polymyxin B.red (food color). Mild(rash)Sulfa (Sulfonamide Antibiotics). MildTramadol.( itching). FAMILY HISTORYNegative - denies family medical history. (Electronically signed by Favio Villegas DO 05/18/2020 16:14) Name Value Range Interpretation Code Description [facility] Document(s) ID Date Data Source [id number] 06/10/2020 08:18:00 PM EDT [facility] Name Value Range Interpretation Code Description Data [facility](s) Supporting Document(s) GLU 313 mg/dL 70-110 [facility] Patients taking Sulfasalazine may have f alsely depressedGlucose levels. Patients taking Sulfapyridine may havefalsely elevated Glucose levels. Patients should be drawnfor Glucose before the initial administration of eitherdrug. BUN 65 mg/dL 7-23 [facility] CRE 2.010 mg/dL 0.500-1.300 [facility] GFR 26 mL/min [facility] CHLORIDE 105 mmol/L 99-110 [facility] NA 139 mmol/L 136-147 [facility] POTASSIUM 5.4 mmol/L 3.5-5.1 H [facility] TCO2 26 mmol/L 20-33 [facility] ANION GAP 13.4 10.0-20.0 [facility] CA 8.0 mg/dL 8.3-10.7 L [facility] ID Date Data Source [id number] 06/10/2020 10:25:00 AM EDT [address] [address]PDBNMIEA NOTEPATIENT NAME: ELA PONCE PHYSICIAN: MICHAEL WANG MDAUTHOR: Shankar Denis DO. DATE: 05/18/20 MR#: [id number] NOTE DATE: 06/10/20 RM#: [id number] TIME: 1114 : 45SubjectiveEvents Since Last EntryPatient seen and examined in room today. Patient's mentation is at baseline.Currently patient oxygen is maintained with 3L during daytime. Yesterdaypatient required 5L oxygen at night. Patient denies acute complaint. Patienthas decreased urine output yesterday.ObjectiveVital SignsVital Signs-24 HRS06/09 1400 1401 1600 1601Temp 97.6 98.0Pulse 74 67 67Resp 18 14 16B/P 153/58 130/51 121/81B/P MeanPulse Ox 91 95 93O2 DeliveryO2 Flow NykuZaC97406/09801 2000 1999 2015 2200Temp 99.7Pulse 74 73 70 72 73Resp 14 20 13 16B/P 122/44 121/50 128/30 128/30 119/64B/P MeanPulse Ox 94 94 95 94O2 DeliveryO2 Flow GmiuWlN53206/09200 2200 0000 0000 0200Temp 98.4 98.8Pulse 68 72Resp 13 13B/P 130/51 136/56B/P MeanPulse Ox 93 87O2 Delivery Nasal cannulaO2 Flow Rate 8FZzY59906/10 0400 0400 0600 0600Temp 97.9 98.3 98.3Pulse 69 72Resp 13 16B/P 142/121 131/58B/P MeanPulse Ox 93 97O2 DeliveryO2 Flow QipxFgN77206/10 0816 0816 0818 09 03Temp 97.5Pulse 69 72 72Resp 17B/P 134/57 136/72 136/72 136/72B/P MeanPulse Ox 93O2 Delivery Nasal cannulaO2 Flow Rate 6ILbG9Loyeec/OutputIntake/Output Summary 24 hours/30 1900 06/10 0700Intake Total 480Output Total 250Balance 230Intake, Oral 480Output, Urine 250Patient 54 kgWeightCurrent MedicationsInsulin Detemir (Levemir) 15 UNIT DAILY SUBCUTPrednisone (Orasone) 40 MG BID POSodium Chloride (SODIUM CHLORIDE 0.9%) 500 ML .Q6H40M IVNicotine (Nicoderm) 14 MG DAILY TOPDuloxetine HCl (Cymbalta) 60 MG DAILY POGabapentin (Neurontin) 300 MG TID POOxycodone HCl (Oxyir) 5 MG Q8HPRN PRN POAmlodipine Besylate (Norvasc) 10 MG DAILY POClopidogrel Bisulfate (Plavix) 75 MG DAILY POFolic Acid (Folvite) 1 MG DAILY POIsosorbide Mononitrate (Imdur) 120 MG DAILY POLevothyroxine Sodium (Synthroid) 75 MCG DAILY POMultivitamins (Multivitamin) 1 TAB DAILY POThiamine HCl (VITAMIN B1) 100 MG DAILY POInsulin Aspart (Humalog Insulin) Low dose sliding scaleAC MEAL SUBCUTAlbuterol Sulfate (Ventolin) 2 PUFFSQID INHAtorvastatin Calcium (Lipitor) 40 MG QHS POBuspirone HCl (Buspar) 5 MG BID POChlorhexidine Gluconate (Chlorhexidine Gluconate) 0 BID MMCyclobenzaprine HCl (Flexeril) 5 MG TID POFerrous Sulfate (Iron) 325 MG BID POHeparin Sodium (Porcine) (Heparin Sodium) 5,000 UNIT Q12H SUBCUTHydralazine HCl (Apresoline) 50 MG TID POInsulin Aspart (Humalog Insulin) 0 QHS SUBCUTMetoprolol Tartrate (Lopressor) 75 MG BID POMiconazole (Monistat-7) 0 BID VAGMiscellaneous (Patch off) 1 PAT QHS NANystatin (Mycostatin,Nilstat Powder) 1 GMTID TOPPantoprazole Sodium (Protonix) 40 MG BID POSodium Chloride (Saline Flush Syr(10ML)) 10 ML Q12H IVGlucose (Insta-Glucose) 15 GM DAILY NEEDED PRN POAcetaminophen (Tylenol) 650 MG Q6HPRN PRN POAcetaminophen (Tylenol) 650 MG Q6HPRN PRN POAlbuterol/Ipratropium (Duoneb) 3 ML Q6HWA PRN INHGlucose (Insta- Glucose) 15 GM DAILY NEEDED PRN POSenna/Docusate Sodium (Senokot S) 2 TAB QHSPRN PRN POSodium Chloride (Saline Flush Syr(10ML)) 10 ML QIDPRN PRN IVExamGeneral Appearance no acute distress, afebrile, alert, awake, conversantHead atraumatic, normocephalicENT dry mucosal membranesNeck no JVDCardiovascular regular rate, normal heart soundsRespiratory on oxygen (3L ), accessory muscle use, decreased breath sounds,ralesAbdomen soft, non-tender, no distention, normal bowel sounds, no guardingUrinary no bladder distention, no flank painExtremities no cyanosis, no edema, normal pulses, Pedal pulses +1 bilaterallyfeet are warm and well perfused.Muscoskeletal full range of motion, normal inspectionNeurological Unable to evaluatePsych/Mental Status unable to evaluateResultsLaboratory DataRecent Labs-24 [id number] (136 - 147 mmol/L) 138Potassium (3.5 - 5.1 mmol/L) 4.7Chloride (99 - 110 mmol/L) 102Serum Bicarbonate (20 - 33 mmol/L) 29Anion Gap (10.0 - 20.0) 11.7BUN (7 - 23 mg/dL) 54 HCreatinine (0.500 - 1.300 mg/dL) 1.900 HEstimated GFR/1.73 m2 (mL/min) 27Glucose (70 - 110 mg/dL) 326 HCalcium (8.3 - 10.7 mg/dL) 8.1 LHematologyWBC (4.0 - 10.5 x10E3/uL) 10.40RBC (4.20 - 5.40 x10E6/uL) 3.28 LHgb (12.0 - 16.0 g/dL) 9.9 LHct (37.0 - 47.0 %) 31.3 LMCV (81.0 - 99.0 fL) 95.4MCH (27.0 - 31.0 pg) 30.2MCHC (32.7 - 35.6 g/dL) 31.6 LRDW (11.5 - 14.0 %) 17.4 HPlt Count (150 - 450 x10E3/uL) 200MPV (6.9 - 9.5 fl) 10.0 HImmature Gran % (Auto) (0.1 - 2.0 %) 0.5Neut % (Auto) (34 - 64 %) 96.1 HLymph % (Auto) (25 - 45 %) 2.7 LMono % (Auto) (1.7 - 10.6 %) 0.7 Daniel % (Auto) (0.4 - 7.0 %) 0 LBaso % (Auto) (0.1 - 2.0 %) 0 LAbs Immat Gran (auto) (0.0 - 0.1 x10E3/uL) 0.05Absolute Neuts (auto) (1.2 - 7.6 x10E3/uL) 10.00 HAbsolute Lymphs (auto) (1.0 - 3.5 x10E3/uL) 0.28 LAbsolute Monos (auto) (0.1 - 1.0 x10E3/uL) 0.07 LAbsolute Eos (auto) (0.1 - 0.7 x10E3/uL) 0.00 LAbsolute Basos (auto) (0.0 - 0.1 x10E3/uL) 0.00Nucleated RBC % (auto) (0 %) 0Assessment/PlanProblem List1. SU (acute kidney injury)A&P- Patient had respiratory failure with hypoxia. CT demosntrated bilateralpleural effusions.- Patient was on IV lasix with diuresis. IV Lasix was discontinued yesterdaydue to worsening renal function.- Renal function continues worsening. Hold lasix. Hold lisinopril. 0.5L fluidbolus orderd. Encourage oral intake as tolerated.2. Acute and chronic respiratory failureA&P- Patiient was on 3L oxygen for her COPD at home- ABG revewied. CT angiogram reviewed. CT demonstrated effusion with bilateralatelectasis. CT also demonstrated lung scarring and emphysematous change.- Currently patient requires 3L at rest. 5L at night and during physicaltherapy section.- Echocardiogram rev iewed. IV lasix discontinued yesterday. Tapering steroid.Continue breathing treatments.3. DiabetesStatus ChronicA&P- Patient was on IV solumedrol for COPD and respiratory failure.- Taper steroid; Switch IV soludedrol to PO prednisone. Increase levemir.Continue insulin sliding scale. Continue consistent carbohydrate diet.4. HypoglycemiaStatus AcuteOnset Date 06/08/20A&P- IV solumedrol started for patient's respiratory failure.- Continue sliding scale. Continue levemir. Continue consistent carbohydratediet.5. Ramon&P- Patient has been on plavix for PVD and heparin for DVT prophylaxis.- On 06/05, patient try to walk to bedside commode without notifying nursingstaffs. Patient was seen shortly after the event. Patient landed on Linea. Patient denied hitting her head.- CT head was negative for acute finding.6. Chronic obstructive pulmonary disease with hypoxiaStatus AcuteOnset Date 06/08/20A&P- Currently patient is on 3-3.5L at rest.- Continue steroid taper. Continue breathing sanjeev tments.7. DepressionStatus ChronicA&P- Continue Cymbalta8. Spinal stenosisStatus ChronicA&P- PRN oxycodone 5mg Q8H. Continue gabapentin.9. AnxietyStatus AcuteA&P- Continue Buspar.10. Anemia of chronic diseaseStatus AcuteA&P- Continue monitoring HH.11. CandidiasisStatus AcuteA&P- Continue miconazole vaginal cream.12. HypothyroidismStatus ChronicA&P- Continue synthroid.13. PVD ( peripheral vascular disease)Status ChronicA&P- Continue Plavix and lipitor.- Patient needs to follow up with her vascular surgery after discharge.Resuscitation status Full codeVTE ProphylaxisVTE Prophylaxis: Continue heparin.DATE SIGNED: 06/11/20 Electronically SignedTIME SIGNED: [id number] GEORGIA DENIS DO Name Value Range Interpretation Code Description Data Rosa rce(s) Supporting Document(s) ID Date Data Source [id number] 06/10/2020 06:29:00 AM EDT [facility] Name Value Range Interpretation Code Description Data Rosa rce(s) Supporting Document(s) GLU 326 mg/dL 70-110 [facility] Patients taking Sulfasalazine may have f alsely depressedGlucose levels. Patients taking Sulfapyridine may havefalsely elevated Glucose levels. Patients should be drawnfor Glucose before the initial administration of eitherdrug. BUN 54 mg/dL 7-23 H [facility] CRE 1.900 mg/dL 0.500-1.300 H [facility] GFR 27 mL/min [facility] CHLORIDE 102 mmol/L 99-110 N [facility] NA 138 mmol/L 136-147 [facility] POTASSIUM 4.7 mmol/L 3.5-5.1 [facility] TCO2 29 mmol/L 20-33 [facility] ANION GAP 11.7 10.0-20.0 [facility] CA 8.1 mg/dL 8.3-10.7 [facility] ID Date Data Source [id number] 06/10/2020 06:13:00 AM EDT [facility] Name Value Range Interpretation Code Description Data Rosa rce(s) Supporting Document(s) WBC 10.40 x10E3/uL 4.0-10.5 [facility] 3.28 x10E6/uL 4.20-5.40 L [facility] Hemoglobin 9.9 g/dL 12.0-16.0 L [facility] Hematocrit 31.3 % 37.0-47.0 L [facility] MCV 95.4 fL 81.0-99.0 N [facility] MCH 30.2 pg 27.0-31.0 N [facility] MCHC 31.6 g/dL 32.7-35.6 L [facility] RDW 17.4 % 11.5-14.0 H [facility] Platelet count 200 x10E3/uL 150-450 [facility] MPV 10.0 fl 6.9-9.5 H [facility] Neutrophils 96.1 % 34-64 H [facility] Lymphocytes 2.7 % 25-45 L [facility] Monocytes 0.7 % 1.7-10.6 L [facility] Eosinophils 0 % 0.4-7.0 L [facility] Basophils 0 % 0.1-2.0 L [facility] Imm. Gran. 0.5 % 0.1-2.0 N [facility] Abs. Neutro. 10.00 x10E3/uL 1.2-7.6 [facility] Abs. Lymph. 0.28 x10E3/uL 1.0-3.5 [facility] Abs. Curry. 0.07 x10E3/uL 0.1-1.0 [facility] Abs. Eosin. 0.00 x10E3/uL 0.1-0.7 [facility] Abs. Baso. 0.00 x10E3/uL 0.0-0.1 [facility] Abs. Imm. Gran. 0.05 x10E3/uL 0.0-0.1 N [facility] spital ANRBC% 0 % 0 N [facility] DIFFERENTIAL CONFIRMED BY SLIDE REVIEW. ID Date Data Source [id number] 06/09/2020 04:31:00 PM EDT [facility] Ex[facility] Number: [id number] Echocardiogr am ReportName: ELA PONCE BStudy Date: 06/08/20202263LSG02WOR: 1945 Gender: FemaleAge: 74 yrs Weight: 119 lbBSA: 1.6 m2 Height: 67 inBP: 125/47 mmHgReason For Study: RESPIRATORY FAILURE WITH PLEURAL EFFUSIONHistory: No prior cardiac interventionOrdering Physician: Parmjit DENISformed By: Shelly Dao, SONJA, RCCSProcedureA complete two-dimensional transthoracic echocardiogram was performed(2D, M-mode, spectral and color flow Doppler). Quality of study:adequate.Measurements with Normals IVSd: 1.2 cm(0.6-1.1 cm) LVIDd: 3.9 cm(3.5-5.7 cm)LVPWd: 1.2 cm(0.6-1.1 cm) LVIDs: 2.9 cm(2.3-3.6 cm)LA dimension: 3.5 cm(1.9-4.0 cm) Ao root diam: 2.9 cm(2.0-3.9 cm)asc Aorta Diam: 2.8 cm(2.0-3.2cm)Doppler with NormalsMMode/2D Measurements & CalculationsACS: 1.2 cmLVOT diam: 2.0 cmEDV(MOD-sp4): 55.0 mlLVLs ap4: 6.7 cmESV(MOD-sp4): 28.0 mlEF(MOD-sp4): 49.1 %EF(MOD-sp2): 61.9 %SV(MOD- sp4): 27.0 mlDoppler Measurements & CalculationsMV V2 max: 157.5 cm/secMV max P.9 mmHgMV V2 mean: 95.3 cm/secMV mean P.2 mmHgMV V2 VTI: 42.7 cmMV P1/2t: 80.6 msecMVA(P1/2t): 2.7 cm2Ao V2 max: 177.8 cm/secAo max P.6 mmHgAo mean P.8 mmHgAo V2 mean: 115.6 cm/secAo V2 VTI: 36.6 cmLeft VentricleNormal left ventricular chamber size with an estimated ejectionfraction of 50-55 %. There is mild concentric left ventricularhypertrophy. Grade I diastolic dysfunc tion, (abnormal relaxationpattern). There is basal inferior wall severe hypokinesis.Right VentricleThe right ventricle is normal in size and function.Left AtriumThe left atrial size is normal. The interatrial septum is intact withno evidence for an atrial septal defect.Right AtriumRight atrial size is normal.Aortic ValveDegenerative changes of the Aortic Valve without significant gradient.No aortic stenosis. No aortic regurgitation is present.Mitral ValveThere is mild mitral valve thickening. Mitral inflow velocity isnormal. There is no mitral valve stenosis. There is trace mitralregurgitation.Tricuspid ValveThe tricuspid valve is not well visualized. No tricuspidregurgitation. There is no tricuspid stenosis.Pulmonic ValveThe pulmonic valve is not well visualized. There is no pulmonicvalvular regu rgitation. There is no pulmonic valvular stenosis.ArteriesThe aortic root is normal size. Ascending aorta normal size.VenousThe inferior vena cava is mildly dilated with a decrease ininspiratory collapse. Dilated IVC consistent with elevated RApressure.EffusionThere is no pericardial effusion.Interpretation SummaryNormal left ventricular chamber size with an estimated ejectionfraction of 50-55 %.There is mild concentric left ventricular hypertrophy.Grade I diastolic dysfunction, (abnormal relaxation pattern).There is basal inferior wall severe hypokinesis.The right ventricle is normal in size and fu nction.Degenerative changes of the Aortic Valve without significant gradient.There is mild mitral valve thickening.There is trace mitral regurgitation.The inferior vena cava is mildly dilated with a decrease ininspiratory collapse.Dilated IVC consistent with elevated RA pressure.Report electronically signed in ISCV by: Fang Obrien MD, MPH,FACC on 06/08/2020 05:35 PM Reported By: - FANG OBRIEN MD Signed By: FANG OBRIEN MD Name Value Range Interpretation Code Description Data Rosa rce(s) Supporting Document(s) ID Date Data Source [id number] 06/09/2020 01:00:00 PM EDT [place] [address] [id number] NOTEPATIENT NAME: ELA PONCE BATTENKEIKO PHYSICIAN: MICHAEL WANG MDAUTHOR: Shankar Denis DO. DATE: 05/18/20 MR#: [id number] NOTE DATE: 06/09/20 RM#: [id number] TIME: 1359 : 45SubjectiveEvents Since Last EntryPatient seen and examined in room today. Patient denies acute complaint.Patient requires less oxygen support. Patient responds very well withdiuretic.ObjectiveVital SignsVital Signs-24 HRS06/08400 1600 1800 1810 2000Temp 97.5 98.5Pulse 70 69 71 76Resp 16 14 14 14B/P 140/54 126/77 131/55 137/53B/P MeanPulse Ox 94 95 93 95O2 Delivery Nasal cannulaO2 Flow Rate [id number] 7806 2119 2200 2200Temp 98.9Pulse 79 73 74Resp 30 13B/P 137/53 124/82 145/57B/P MeanPulse Ox 96 94O2 Delivery Nasal cannulaO2 Flow Rate [id number] 7445 0200 0200 0400Temp 97.9 98.7Pulse 69 72 78Resp 14 13 11B/P 126/45 137/51 144/58B/P MeanPulse Ox 90 93 90O2 DeliveryO2 Flow [id number] 3955 0600 0800 0827Temp 97.8 97.3 99.1Pulse 80 88Resp 11 18B/P 157/63 156/56 142/52B/P MeanPulse Ox 92 93O2 DeliveryO2 Flow EajaUfQ24806/09/503081 7491 0829TempPulse 82 82RespB/P 142/52 142/52 142/52B/P MeanPulse OxO2 DeliveryO2 Flow XxyxXgN3Nqvbpz/OutputIntake/Output Summary 24 hours06/08 1900 06/09 0700Intake Total 920 240Output Total 1200 500Balance -280 -260Intake, Oral 920 240Number 1BowelMovementsOutput, Urine 1200 500Patient 54 kgWeightCurrent MedicationsInsulin Detemir (Levemir) 10 UNIT DAILY SUBCUTMiscellaneous (Patch off) 1 PAT QHS NA (CAN)Methylprednisolone (Solumedrol) 40 MG Q12H IVNicotine (Nicoderm) 14 MG DAILY TOPDuloxetine HCl (Cymbalta) 60 MG DAILY POGabapentin (Neurontin) 300 MG TID POOxycodone HCl (Oxyir) 5 MG Q8HPRN PRN POAmlodipine Besylate (Norvasc) 10 MG DAILY POClopidogrel Bisulfate (Plavix) 75 MG DAILY POFolic Acid (Folvite) 1 MG DAILY POIsosorbide Mononitrate (Imdur) 120 MG DAILY POLevothyroxine Sodium (Synthroid) 75 MCG DAILY POLisinopril (Prinivil,Zestril) 40 MG DAILY POMultivitamins (Multivitamin) 1 TAB DAILY POThiamine HCl (VITAMIN B1) 100 MG DAILY POInsulin Aspart (Humalog Insulin) Low dose sliding scaleAC MEAL SUBCUTAlbuterol Sulfate (Ventolin) 2 PUFFSQID INHAtorvastatin Calcium (Lipitor) 40 MG QHS POBuspirone HCl (Buspar) 5 MG BID POChlorhexidine Gluconate (Chlorhexidine Gluconate) 0 BID MMCyclobenzaprine HCl (Flexeril) 5 MG TID POFerrous Sulfate (Iron) 325 MG BID POHeparin Sodium (Porcine) (Heparin Sodium) 5,000 UNIT Q12H PATTEN BCUTHydralazine HCl (Apresoline) 50 MG TID POInsulin Aspart (Humalog Insulin) 0 QHS SUBCUTMetoprolol Tartrate (Lopressor) 75 MG BID POMiconazole (Monistat-7) 0 BID VAGMiscellaneous (Patch off) 1 PAT QHS NANystatin (Mycostatin,Nilstat Powder) 1 GMTID TOPPantoprazole Sodium (Protonix) 40 MG BID POSodium Chloride (Saline Flush Syr(10ML)) 10 ML Q12H IVGlucose (Insta-Glucose) 15 GM DAILY NEEDED PRN POAcetaminophen (Tylenol) 650 MG Q6HPRN PRN POAcetaminophen (Tylenol) 650 MG Q6HPRN PRN POAlbuterol/Ipratropium (Duoneb) 3 ML Q6HWA PRN INHGlucose (Insta- Glucose) 15 GM DAILY NEEDED PRN POSenna/Docusate Sodium (Senokot S) 2 TAB QHSPRN PRN POSodium Chloride (Saline Flush Syr(10ML)) 10 ML QIDPRN PRN IVExamGeneral Appearance no acute distress, afebrile, alert, awake, conversantHead atraumatic, normocephalicENT moist mucosal membranesNeck no JVDCardiovascular regular rate, normal heart soundsRespiratory on oxygen (3L ), accessory muscle use, decreased breath sounds,rales, bipapAbdomen soft, non- tender, no distention, normal bowel sounds, no guardingExtremities no cyanosis, no edema, normal pulses, Pedal pulses +1 bilaterallyfeet are warm and well perfused.Muscoskeletal full range of motion, normal inspectionNeurological Unable to evaluatePsych/Mental Status unable to evaluateAssessment/PlanProblem List1. Acute and chronic respiratory failureA&P- Patiientwas on 3L oxygen for her COPD at home- ABG revewied. CT angiogram reviewed. CT demonstrated effusion with bilateralatelectasis. CT also demonstrated lung scarring and emphysematous change.- Currently patient requires 3-3.5L at rest. 5L during physical therapysection.- Echocardiogram reviewed. D/C IV lasix. Continue IV solumedrol. Continuebreathing treatments.2. HypoglycemiaStatus AcuteOnset Date 06/08/20A&P- IV solumedrol started for patient's respiratory failure.- Continue sliding scale. Continue levemir. Continue consistent carbohydratediet.3. Ramon&P- Patient has been on plavix for PVD and heparin for DVT prophylaxis.- On 06/05, patient try to walk to bedside commode without notifying nursingstaffs. Patient was seen shortly after the event. Patient landed on Linea. Patient denied hitting her head.- CT head was negative for acute finding.4. Chronic obstructive pulmonary disease with hypoxiaStatus AcuteOnset Date 06/08/20A&P- Currently patient is on 3-3.5L at rest.- Continue IV solumedrol. Continue breathing treatments.5. DepressionStatus ChronicA&P- Continue Cymbalta6. Spinal stenosisStatus ChronicA&P- PRN oxycodone 5mg Q8H. Continue gabapentin.7. DiabetesStatus ChronicA&P- Start IV solumedrol for COPD and respiratory failure.- Continue levemir. Continue insulin sliding scale. Continue consistentcarbohydrate diet.8. AnxietyStatus AcuteA&P- Continue Buspar.9. Anemia of chronic diseaseStatus AcuteA&P- Continue monitoring HH.10. CandidiasisStatus AcuteA&P- S/P course of difflucan. Continue MIconazole cream.11. HypothyroidismStatus ChronicA&P- Continue synthroid.12. PVD (peripheral vascular disease)Status ChronicA&P- Continue Plavix and lipitor.- Patient needs to follow up with her vascular surgery after discharge.Resuscitation status Full codeProlong Service Time* 30 minutes of prolong orup-se-cfyi time spent with Patient, patient's son andcase prototype engineer manager.* Discussed: discharge planning.VTE Proph ylaxisVTE Prophylaxis: Continue heparin.DATE SIGNED: 06/11/20 Electronically SignedTIME SIGNED: [id number] GEORGIA DENIS DO Name Value Range Interpretation Code Description Data Rosa rce(s) Supporting Document(s) ID Date Data Source [id number] 06/09/2020 08:02:00 AM [facility] Name Value Range Interpretation Code Description Data Rosa rce(s) Supporting Document(s) WBC 4.59 x10E3/uL 4.0-10.5 N [facility] RBC 3.22 x10E6/uL 4.20-5.40 L [facility] Hemoglobin 9.8 g/dL 12.0-16.0 L [facility] Hematocrit 30.8 % 37.0-47.0 L [facility] MCV 95.7 fL 81.0-99.0 N [facility] MCH 30.4 pg 27.0-31.0 [facility] MCHC 31.8 g/dL 32.7-35.6 L [facility] RDW 17.5 % 11.5-14.0 H [facility] Platelet count 185 x10E3/uL 150-450 N [facility] ital MPV 10.1 fl 6.9-9.5 H [facility] SEG. NEUTROPHIL 93 % 34-64 [facility] BAND 0 % 5-11 L [facility] LYMPHOCYTE 7 % 25-45 L [facility] EOSINOPHILS 0 % 0-7 [facility] MONOCYTES 0 % 2-10 L [facility] BASOPHILS 0 % 0-2 [facility] ATYPICAL LYMPHS 0 % 0-10 [facility] METAMYELOCYTES 0 % 0-2 [facility] MYELOCYTES 0 % 0-2 [facility] PROMYELOCYTES 0 % 0-1 [facility] BLAST CELLS 0 % 0-1 [facility] NUCLEATED RBC'S 0 0 N [facility] PLATELET MORPH 1+ PLT SIZE VARIES [facility] PLATELET MORPHOLOGY EXPECTED RESULT:NORM AL = NO REMARKABLE MORPHOLOGYAny findings other than Normal will be reported and areconsidered Abnormal. The significance of Abnormal findingsare to be clinically correlated by the provider. ID Date Data Source [id number] 06/09/2020 07:55:00 AM EDT [facility] Name Value Range Interpretation Code Description Data Rosa rce(s) Supporting Document(s) GLU 305 mg/dL 70-110 H [facility] Patients taking Sulfasalazine may have f alsely depressedGlucose levels. Patients taking Sulfapyridine may havefalsely elevated Glucose levels. Patients should be drawnfor Glucose before the initial administration of eitherdrug. BUN 34 mg/dL 7-23 H [facility] CRE 1.220 mg/dL 0.500-1.300 [facility] GFR 46 mL/min [facility] CHLORIDE 105 mmol/L 99-110 [facility] NA 142 mmol/L 136-147 [facility] POTASSIUM 5.2 mmol/L 3.5-5.1 H [facility] TCO2 28 mmol/L 20-33 [facility] ANION GAP 14.2 10.0-20.0 [facility] CA 8.0 mg/dL 8.3-10.7 [facility] ID Date Data Source [id number] 06/08/2020 10:58:00 AM EDT [address] [id number] NOTEPATIENT NAME: JOHNTURE,ELA BATTENDING PHYSICIAN: MICHAEL WANG MDAUTHOR: Shankar Denis DO. DATE: 05/18/20 MR#: [id number] NOTE DATE: 06/08/20 RM#: [id number] TIME: 1340 : 45SubjectiveEvents Since Last EntryPatient seen and examined in the room today. Currently patient's oxygenation ismaintained with 6L NC. Patient's mentation is improving. Patient is complainingabout her chronic back pain. No recurrence of hypoglycemia. Patient stated shehad similar episode at home.ObjectiveVital SignsVital Signs-24 HRS06/[id number] 1916 1800 2000 2001Temp 97.8 97.2 96.8 98.7Pulse 75 95 62 68Resp 20 24 13 16B/P 119/90 119/56 115/48 142/61B/P MeanPulse Ox 93 95 95 90 91O2 Delivery Nasal cannula BiPAPO2 Flow Rate 4L [id number] 6452 0000 0200 02 00Temp 98.4Pulse 66 67 74 68Resp 13 21 13B/P 138/52 118/45 145/61 148/54B/P MeanPulse Ox 92 87 88O2 DeliveryO2 Flow [id number] 6002 0615 0800 0819Temp 98.4 98.2Pulse 80 79Resp 21 16B/P 154/60 127/90 136/64B/P MeanPulse Ox 85 94O2 DeliveryO2 Flow [id number] 9517 0823 0919TempPulse 88 88RespB/P 136/64 136/64 136/64B/P MeanPulse OxO2 Delivery Nasal cannulaO2 Flow Rate 9WvZ9Lhvaql/OutputIntake/Output Summary 24 hours06/07 1900 06/08 0700Intake Total 100Output Total 500 1000Balance -500 - 900Intake, Oral 100Output, Urine 500 1000Current MedicationsGabapentin (Neurontin) 300 MG TID POOxycodone HCl (Oxyir) 5 MG Q8HPRN PRN POAmlodipine Besylate (Norvasc) 10 MG DAILY POClopidogrel Bisulfate (Plavix) 75 MG DAILY POFolic Acid (Folvite) 1 MG DAILY POInsulin Detemir (Levemir) 10 UNIT DAILY SUBCUTIsosorbide Mononitrate (Imdur) 120 MG DAILY POLevothyroxine Sodium (Synthroid) 75 MCG DAILY POLisinopril (Prinivil,Zestril) 40 MG DAILY POMultivitamins (Multivitamin) 1 TAB DAILY PONicotine (Nicoderm) 21 MG DAILY TOPThiamine HCl (VITAMIN B1) 100 MG DAILY POFurosemide (Lasix) 40 MG 0800,1630 IVInsulin Aspart (Humalog Insulin) Low dose sliding scaleAC MEAL SUBCUTAlbuterol Sulfate (Ventolin) 2 PUFFSQID INHAtorvastatin Calcium (Lipitor) 40 MG QHS POBuspirone HCl (Buspar) 5 MG BID POChlorhexidine Gluconate (Chlorhexidine Gluconate) 0 BID MMCyclobenzaprine HCl (Flexeril) 5 MG TID POFerrous Sulfate (Iron) 325 MG BID POHeparin Sodium (Porcine) (Heparin Sodium) 5,000 UNIT Q12H SUBCUTHydralazine HCl (Apresoline) 50 MG TID POInsulin Aspart (Humalog Insulin) 0 QHS SUBCUTMetoprolol Tartrate (Lopressor) 75 MG BID POMiconazole (Monistat-7) 0 BID VAGMiscellaneous (Patch off) 1 PAT QHS NANystatin (Mycostatin,Nilstat Powder) 1 GMTID TOPPantoprazole Sodium (Protonix) 40 MG BID POSodium Chloride (Saline Flush Syr(10ML)) 10 ML Q12H IVGlucose (Insta-Glucose) 15 GM DAILY NEEDED PRN POAcetaminophen (Tylenol) 650 MG Q6HPRN PRN POAcetaminophen (Tylenol) 650 MG Q6HPRN PRN POAlbuterol/Ipratropium (Duoneb) 3 ML Q6HWA PRN INHGlucose (Insta- Glucose) 15 GM DAILY NEEDED PRN POSenna/Docusate Sodium (Senokot S) 2 TAB QHSPRN PRN POSodium Chloride (Saline Flush Syr(10ML)) 10 ML QIDPRN PRN IVExamGeneral Appearance no acute distress, afebrile, alert, awake, conversantHead atraumatic, normocephalicENT moist mucosal membranesNeck no JVDCardiovascular regular rate, normal heart soundsRespiratory no distress, on oxygen (6L NC), decreased breath sounds (bilaterally at bases), rales, no inc. work of breathingAbdomen soft, non-tender, no distention, normal bowel sounds, no guardingExtremities no cyanosis, no edema, normal pulses, Pedal pulses +1 bilaterallyfeet are warm and well perfused.Muscoskeletal full range of motion, normal inspectionNeurological alert, oriented x 3Psych/Mental Status anxiousResultsLaboratory DataRecent Labs-24 hours06/07906996 5447 1736Blood GasABG pH (7.360 - 7.440) 7.406ABG pCO2 (35 - 50 mmHg) 45.3ABG pO2 (80 - 100 mmHg) 69.0 LABG O2 Saturation (95 - 100 %) 92.9 LABG Base Excess (-3 TO +3 mmol/L) 2.6Oxyhemoglobin (94.0 - 97.0 %) 91.9 LCarboxyhemoglobin (%) 0.5Methemoglobin (0.0 - 1.5 %) 0.6Total Hemoglobin (12 - 18 g/dL) 11.6 LFiO2 100%ChemistrySodium (136 - 147 mmol/L) 144Potassium (3.5 - 5.1 mmol/L) 4.1Chloride (99 - 110 mmol/L) 109Serum Bicarbonate (20 - 33 mmol/L) 27.8 28Anion Gap (10.0 - 20.0) 11.1BUN (7 - 23 mg/dL) 34 HCreatinine (0.500 - 1.300 mg/dL) 0.932Estimated GFR/1.73 m2 (mL/min) > 60Glucose (70 - 110 mg/dL) 36 PLCalcium (8.3 - 10.7 mg/dL) 8.3Total Bilirubin (0.1 - 1.1 mg/dL) 0.4AST (6 - 38 U/L) 20ALT (6 - 54 U/L) 19Alkaline Phosphatase (45 - 117 U/L) 205 HAmmonia (11 - 32 umol/L) 12.0C-Reactive Protein (0.00 - 0.49 mg/dL) 5.97 JFfv-I-Zmjlwardwvz Pept (0 - 125 pg/mL) 5531 HTotal Protein (6.0 - 7.8 g/dL) 5.4 LAlbumin (3.5 - 5.0 g/dL) 2.4 LGlobulin (2.3 - 3.5 g/dL) 3.0Albumin/Globulin Ratio (1.0 - 2.5) 0.8 LHematologyWBC (4.0 - 10.5 x10E3/uL) 9.98RBC (4.20 - 5.40 x10E6/uL) 3.08 LHgb (12.0 - 16.0 g/dL) 9.3 LHct (37.0 - 47.0 %) 29.2 LMCV (81.0 - 99.0 fL) 94.8MCH (27.0 - 31.0 pg) 30.2MCHC (32.7 - 35.6 g/dL) 31.8 LRDW (11.5 - 14.0 %) 17.5 HPlt Count (150 - 450 x10E3/uL) 177MPV (6.9 - 9.5 fl) 9.8 HImmature Gran % (Auto) (0.1 - 2.0 %) 0.4Neut % (Auto) (34 - 64 %) 86.7 HLymph % (Auto) (25 - 45 %) 3.9 LMono % (Auto) (1.7 - 10.6 %) 8.3Eos % (Auto) (0.4 - 7.0 %) 0.4Baso % (Auto) (0.1 - 2.0 %) 0.3Abs Immat Gran (auto) (0.0 - 0.1 x10E3/uL) 0.04Absolute Neuts (auto) (1.2 - 7.6 x10E3/uL) 8.65 HAbsolute Lymphs (auto) (1.0 - 3.5 x10E3/uL) 0.39 LAbsolute Monos (auto) (0.1 - 1.0 x10E3/uL) 0.83Absolute Eos (auto) (0.1 - 0.7 x10E3/uL) 0.04 LAbsolute Basos (auto) (0.0 - 0.1 x10E3/uL) 0.03Nucleated RBC % (auto) (0 %) 0RBC Morphology 1+ [id number]/07 1736 1758Blood GasABG pH CancelledABG pCO2 CancelledABG pO2 CancelledABG O2 Saturation CancelledABG Base Excess CancelledOxyhemoglobin CancelledCarboxyhemoglobin CancelledMethemoglobin CancelledTotal Hemoglobin CancelledFiO2 CancelledChemistrySerum Bicarbonate CancelledPlasma Lactic Acid Sedrick (0.4 - 2.0 mmol/L) 0.4Troponin I High Sens (3.0 - 82.3 ng/L) 33.304/ 2100Blood GasABG pH (7.360 - 7.440) 7.447 HABG pCO2 (35 - 50 mmHg) 40.8ABG pO2 (80 - 100 mmHg) 53.9 LABG O2 Saturation (95 - 100 %) 88.3 LABG Base Excess (-3 TO +3 mmol/L) 3.2Oxyhemoglobin (94.0 - 97.0 %) 87.6 LCarboxyhemoglobin (%) 0.3Methemoglobin (0.0 - 1.5 %) 0.5Total Hemoglobin (12 - 18 g/dL) 10.8 LFiO2 4LChemistrySerum Bicarbonate (20 - 33 mmol/L) 27.5UrinesUrine Color YellowUrine Appearance ClearUrine pH (5.0 - 8.0) 5.5Ur Specific [place] (1.010 - 1.025) 1.012Urine Protein (Negative) 3+Urine Ketones (NEGATIVE) NegativeUrine Blood (NEGATIVE) NegativeUrine Nitrite (Negative) NegativeUr Bilirubin Confirm (NEGATIVE) NegativeUrine Urobilinogen (0.2 - 1.0 mg/dL) 0.2Urine Leukocytes (Negative) NegativeUrine RBC (NONE SEEN) 0-2 RBCs/HPFUrine WBC (NONE SEEN) 0-2 WBCs/HPFUrine Bacteria (NONE SEEN) FewUrine Casts (NONE SEEN) FEW GRANULAR/LPFFEW HYALINE/LPFUrine Mucus (NONE SEEN) FewUrine Glucose (NEGATIVE) Tuuqmvui70/758085JhkfvkhxcYyphax (136 - 147 mmol/L) 144Potassium (3.5 - 5.1 mmol/L) 4.5Chloride (99 - 110 mmol/L) 108Serum Bicarbonate (20 - 33 mmol/L) 30Anion Gap (10.0 - 20.0) 10.5BUN (7 - 23 mg/dL) 30 HCreatinine (0.500 - 1.300 mg/dL) 0.913Estimated GFR/1.73 m2 (mL/min) > 60Glucose (70 - 110 mg/dL) 141 HCalcium (8.3 - 10.7 mg/dL) 8.1 LMagnesium (1.6 - 2.6 mg/dL) 1.8HematologyWBC (4.0 - 10.5 x10E3/uL) 6.77RBC (4.20 - 5.40 x10E6/uL) 3.38 LHgb (12.0 - 16.0 g/dL) 10.2 LHct (37.0 - 47.0 %) 32.0 LMCV (81.0 - 99.0 fL) 94.7MCH (27.0 - 31.0 pg) 30.2MCHC (32.7 - 35.6 g/dL) 31.9 LRDW (11.5 - 14.0 %) 17.5 HPlt Count (150 - 450 x10E3/uL) 170MPV (6.9 - 9.5 fl) 9.7 HImmature Gran % (Auto) (0.1 - 2.0 %) 0.3Neut % (Auto) (34 - 64 %) 82.7 HLymph % (Auto) (25 - 45 %) 6.4 LMono % (Auto) (1.7 - 10.6 %) 9.2Eos % (Auto) (0.4 - 7.0 %) 1.3Baso % (Auto) (0.1 - 2.0 %) 0.1Abs Immat Gran (auto) (0.0 - 0.1 x10E3/uL) 0.02Absolute Neuts (auto) (1.2 - 7.6 x10E3/uL) 5.60Absolute Lymphs (auto) (1.0 - 3.5 x10E3/uL) 0.43 LAbsolute Monos (auto) (0.1 - 1.0 x10E3/uL) 0.62Absolute Eos (auto) (0.1 - 0.7 x10E3/uL) 0.09 LAbsolute Basos (auto) (0.0 - 0.1 x10E3/uL) 0.01Nucleated RBC % (auto) (0 %) 0Assessment/PlanProblem List1. Acute and chronic respiratory failureA&P- At baseline, patient is on 3L oxygen for her COPD.- Patient demonstrated worsening hypoxia since yesterday afternoon. Patient wasinitially placed on non-rebreather then transitioned to BiPAP. After patient'smentation demonstrated gradually improved, patient refused BiPAP. Cur rentlypatient is on 6L oxygen.- CT head was negative. CTA demonstrated bilateraly pleural effusion withbilateral atelectasis. emphysematous change, and scarring of lung.- Continue IV lasix. Continue breathing treatments. Start IV Solu-Medrol. Trialof BiPAP if tolerated. Continuing titrating oxygen as tolerated.- Family meeting in ICU today with patient and her son.2. Chronic obstructive pulmonary disease with hypoxiaStatus AcuteOnset Date 06/08/20A&P- Currently patient is on 6L oxygen.- Continue breathing treatments.3. HypoglycemiaStatus AcuteOnset Date 06/08/20A&P- Improved.- Encourage oral intake as tolerated.4. DepressionStatus ChronicA&P- Continue Cymbalta5. Spinal stenosisStatus Chronic6. DiabetesStatus ChronicA&P- Start IV solumedrol for COPD and respiratory failure.- Continue levemir. Continue insulin sliding scale. Continue consistentcarbohydrate diet.7. AnxietyStatus AcuteA&P- Continue Buspar.8. Anemia of chronic diseaseStatus AcuteA&P- Continue monitoring HH.9. CandidiasisStatus AcuteA&P- S/P course of PO Diflucan. Continue Miconazole vaginal cream.Resuscitation status Full codeSmoking Cessation Counseling* I have counseled the patient on the dangers of tobacco use for more than 3minutes.* The patient was advised to quit tobacco use. I reviewed the variousstrategies of quitting with the patient.Advance Care Planning* 20 minutes of xdzw-zz-fntp time spent for Advance Care Planning inexplanation/discussion of Advance Directives.* Following people are present during the meeting: Patient and her son in ICU.* Decisions reached: Full code.Prolong Service Time* 30 minutes of prolong pclm-kj-ahjn time spent with Patient, Patient's son,case management.* Discussed: Subacute rehab. Transition to intermediate if patient fails rehab.Consider rehab facility in [place], [facility] named [facility].VTE ProphylaxisVTE Prophylaxis: Continue heparin.DATE SIGNED: 06/11/20 Electronically SignedTIME SIGNED: [id number] [place] DENIS DO Name Value Range Interpretation Code Description Data Rosa rce(s) Supporting Document(s) ID Date Data Source [id number] 06/08/2020 06:05:00 AM EDT [facility] Name Value Range Interpretation Code Description Data Rosa rce(s) Supporting Document(s) WBC 6.77 x10E3/uL 4.0-10.5 N [facility] RBC 3.38 x10E6/uL 4.20-5.40 L [facility] Hemoglobin 10.2 g/dL 12.0-16.0 L [facility] Hematocrit 32.0 % 37.0-47.0 L [facility] MCV 94.7 fL 81.0-99.0 N [facility] MCH 30.2 pg 27.0-31.0 N [facility] MCHC 31.9 g/dL 32.7-35.6 L [facility] RDW 17.5 % 11.5-14.0 H [facility] Platelet count 170 x10E3/uL 150-450 N [facility] ital MPV 9.7 fl 6.9-9.5 H [facility] Neutrophils 82.7 % 34-64 H [facility] Lymphocytes 6.4 % 25-45 L [facility] Monocytes 9.2 % 1.7-10.6 [facility] Eosinophils 1.3 % 0.4-7.0 [facility] Basophils 0.1 % 0.1-2.0 [facility] Imm. Gran. 0.3 % 0.1-2.0 [facility] Abs. Neutro. 5.60 x10E3/uL 1.2-7.6 [facility] Abs. Lymph. 0.43 x10E3/uL 1.0-3.5 [facility] Abs. Curry. 0.62 x10E3/uL 0.1-1.0 [facility] Abs. Eosin. 0.09 x10E3/uL 0.1-0.7 [facility] Abs. Baso. 0.01 x10E3/uL 0.0-0.1 N [facility] l Abs. Imm. Gran. 0.02 x10E3/uL 0.0-0.1 [facility] spital ANRBC% 0 % 0 [facility] DIFFERENTIAL CONFIRMED BY SLIDE REVIEW. ID Date Data Source [id number] 06/08/2020 06:03:00 AM EDT [facility] Name Value Range Interpretation Code Description Data Rosa rce(s) Supporting Document(s) MAGNESIUM 1.8 mg/dL 1.6-2.6 [facility] ID Date Data Source [id number] 06/08/2020 06:03:00 AM EDT [facility] Name Value Range Interpretation Code Description Data Rosa rce(s) Supporting Document(s) GLU 141 mg/dL 70-110 [facility] Patients taking Sulfasalazine may have f alsely depressedGlucose levels. Patients taking Sulfapyridine may havefalsely elevated Glucose levels. Patients should be drawnfor Glucose before the initial administration of eitherdrug. BUN 30 mg/dL 7-23 H [facility] CRE 0.913 mg/dL 0.500-1.300 [facility] GFR > 60 mL/min [facility] CHLORIDE 108 mmol/L 99-110 [facility] NA 144 mmol/L 136-147 [facility] POTASSIUM 4.5 mmol/L 3.5-5.1 [facility] TCO2 30 mmol/L 20-33 [facility] ANION GAP 10.5 10.0-20.0 [facility] CA 8.1 mg/dL 8.3-10.7 [facility] ID Date Data Source [id number] 06/08/2020 12:43:00 AM EDT [address] [id number] COVERAGE PROGRESS NOTEPATIENT NAME: COUTURE,ELA BATTENDING PHYSICIAN: MICHAEL WANG MDAUTHOR: David GAS. : 45ADM. DATE: 05/18/20 MR#: [id number] NOTE DATE: 06/08/20 #: [id number] TIME: 46 HistoryNOCTURNALIST CROSS COVERAGE NOTEThis is a 74-year-old female with a known past medical history ofCOPD, diabetes, hypertension, spinal stenosis initially transferred from [facility] to [facility] on May 18, 2020 for persistent back pain evaluated furtherfor discitis. Patient continued to have a complicated hospitalization coursesuffering from pneumonia and urinary tract infection superimposed with COPDexacerbation. She had successfully completed a course of IV antibiotic alongwith IV steroids and during her hospitalization course received 2 units ofpacked red blood cells due to acute on chronic worsening anemia of chronicdisease.Over the last 24 hours patient was transferred to the ICU due to worseninghypoxia and lethargy. This was attributed to underlying narcotic use alongwith persistent hyperglycemia. All sedating medications were withheld andpatient had undergone a CT angiogram showing no evidence of pulmonary emboli.Other findings showed bilateral lower lung field pleural effusions withatelectasis. Patient's hypoglycemia had rectified after a dose of amp D50,continue monitor capillary blood glucose every 4 hours and at presentmaintaining glucose above 120. Patient has received Lasix for active diuresis.@ 8:36 pm-was notified by UNDERGROUND PRODUCTION FOREPERSON that patient capillary blood glucose was 77and she had remained n.p.o. Patient's mentation had remained at baselinecommunicating appropriately with nursing staff. 1 x amp D50 was administered.Glucose levels rechecked @ 10:34 pm:-Was called by ICU nurse Cindy, patient had worsening hypoxia with apulse oximetry in therapist. Patient was switched from nasal cannula to BiPAP at a reducedsetting of 10/5 saturating at 95%. Patient tolerating BiPAP appropriately andremains in no acute distress. She has denied any chest pain, palpitations,dyspnea. ABG reviewed- pH 7.4, pCO2- 40.8@12 am:-Was called by ICU -RN Cindy to report that patient has refused her BiPAPalong with a Ventimask and nasal cannula oxygenation. Despite all effortspatient had declined all respiratory treatments and saturating Spo2 Evaluated patient at the bedside who had clearly declined all medicalintervention despite persistent hypoxia. Spoke with patient's son Doni over thetelephone and conveyed her critical condition and worsening respiratory status.Son convinced patient to maintain utilizing nasal cannula oxygenation alone.Patient states "If my oxygen levels goes down, I will like to be left alone todie. I don't want any machines attached to me and I do not want to be revivedin any way. I will be left to god".Spoken at length on advanced directives. Patient is aware current MOST formremains full code and to abide in her wishes will require recending this. Shewill await till morning when her son (Doni from [place], [place]) arrives to changeher CODE STATUS to DNR/DNI. In interim patient remains adherent on nasalcannula oxygenation with a current pulse oximetry of 94% on 6LNC. We willmonitor closely for any further desaturations. She is aware of thecomplications of persistent hypoxic state leading to poor oxygenation to vitalorgans including heart and brain, leading to potential altered mental statusand even . Offered form of anxiolytic to overcome possible underlyingclaustrophobia on bipap. She has declined this as well. Patient demonstratesfull capacity of making her medical decisions.Patient's wishes has been conveyed to nursing staffObjectiveVital SignsVital Signs-24 HRS06/07 0812 0812 0813 0813Temp 98.5Pulse 84 84 84Resp 16B/P 153/66 153/66 153/66 153/66 153/66B/P MeanPulse Ox 92O2 Delivery Nasal cannulaO2 Flow Rate [id number]/07015 1022 1424 1638 1800Temp 98.7 97.8 97.2 96.8Pulse 80 75 95 62Resp 22 20 24 13B/P 119/88 119/90 119/56 115/48B/P MeanPulse Ox 94 93 95 95O2 Delivery Nasal cannula Nasal cannula BiPAPO2 Flow Rate 3L 4L [id number]/07000 2001 2039 2200Temp 98.7Pulse 68 66 67Resp 16 13B/P 142/61 138/52 118/45B/P MeanPulse Ox 90 91 92O2 DeliveryO2 Flow LyovLvB6Yhfqxl/OutputIntake/Output Summary 24 hours06/07 1900 06/08 0700Intake TotalOutput Total 500Balance -500Output, Urine 500Current MedicationsAmlodipine Besylate (Norvasc) 10 MG DAILY POClopidogrel Bisulfate (Plavix) 75 MG DAILY POFolic Acid (Folvite) 1 MG DAILY POInsulin Detemir (Levemir) 10 UNIT DAILY SUBCUTIsosorbide Mon onitrate (Imdur) 120 MG DAILY POLevothyroxine Sodium (Synthroid) 75 MCG DAILY POLisinopril (Prinivil,Zestril) 40 MG DAILY POMultivitamins (Multivitamin) 1 TAB DAILY PONicotine (Nicoderm) 21 MG DAILY TOPThiamine HCl (VITAMIN B1) 100 MG DAILY POFurosemide (Lasix) 40 MG 0800,1630 IVInsulin Aspart (Humalog Insulin) Low dose sliding scaleAC MEAL SUBCUTAlbuterol Sulfate (Ventolin) 2 PUFFSQID INHAtorvastatin Calcium (Lipitor) 40 MG QHS POBuspirone HCl (Buspar) 5 MG BID POChlorhexidine Gluconate (Chlorhexidine Gluconate) 0 BID MMCyclobenzap rine HCl (Flexeril) 5 MG TID POFerrous Sulfate (Iron) 325 MG BID POHeparin Sodium (Porcine) (Heparin Sodium) 5,000 UNIT Q12H SUBCUTHydralazine HCl (Apresoline) 50 MG TID POInsulin Aspart (Humalog Insulin) 0 QHS SUBCUTMetoprolol Tartrate (Lopressor) 75 MG BID POMiconazole (Monistat-7) 0 BID VAGMiscellaneous (Patch off) 1 PAT QHS NANystatin (Mycostatin,Nilstat Powder) 1 GMTID TOPPantoprazole Sodium (Protonix) 40 MG BID POSodium Chloride (Saline Flush Syr(10ML)) 10 ML Q12H IVGlucose (Insta-Glucose) 15 GM DAILY NEEDED PRN POAcetaminophen (Tylenol) 650 MG Q6HPRN PRN POAcetaminophen (Tylenol) 650 MG Q6HPRN PRN POAlbuterol/Ipratropium (Duoneb) 3 ML Q6HWA PRN INHGlucose (Insta- Glucose) 15 GM DAILY NEEDED PRN POSenna/Docusate Sodium (Senokot S) 2 TAB QHSPRN PRN POSodium Chloride (Saline Flush Syr(10ML)) 10 ML QIDPRN PRN IVFluconazole (Diflucan) 200 MG Q24H POMagnesium Oxide (Magox) 400 MG DAILY POExamGeneral Appearance no acute distress, afebrile, alert, awake, conversant, frailappearing, frustratedHead atraumatic, normocephalicENT moist mucosal membranesNeck no JVDCardiovascular regular rate, normal heart soundsRespiratory no distress, on oxygen (NC), decreased breath sounds (bilaterallyat bases), rales, no inc. work of breathingAbdomen soft, non-tender, no distention, normal bowel sounds, no guardingExtremities no cyanosis, no edema, normal pulses, Pedal pulses +1 bilaterallyfeet are warm and well perfused.Muscoskeletal full range of motion, normal inspectionNeurological lolly rt, oriented x 3Psych/Mental Status anxiousResultsRadiologyCT/CT ANGIO CHEST WITH IV FOR PDATE OF EXAMINATION: 06/07/2020 16:29 EDTCT ANGIO CHEST WITH IV FOR PEHISTORY: HypoxiaThis CT exam was performed using the following dose reductiontechnique: automated exposure control, adjustment of mA and/or kVaccording to the patient's size, and use of iterative reconstructiontechnique.Standard contiguous axial spiral imaging was obtained with dynamicintravenous contrast administration and pulmonary arterial phaseimaging from the lung apices through the lung bases and with coronalreformatting.FINDINGS:Pulmonary Arteries: No filling defects within the pulmonary arterialsystem to suggest the presence of pulmonary embolic disease.Aorta: No dissection or aneurysm. There is atherosclerotic change.Lungs: Centrilobular emphysematous change. There is scarring andbronchiectasis. There is atelectatic change in both lower lobesadjacent to the pleural effusions. There is a 1 cm focal opacity inthe right upper lobe with extension to the pleural surface and slightcavitation.Pleural Space: Small bilateral pleural effusions. There is an areathickening with adjacent parenchymal disease in the right lateralhemithorax. This may represent thickening and associated scarring..Heart: There are coronary artery calcifications. Left ventricular walldoes appear slightly thickened.Lymph nodes:There is a 1.3 cm AP window node and 1 cm azygous node.There is an 8.2 mm left periaortic nodeSoft Tissues: UnremarkableBones/joints:There is degenerative change throughout the thoracicspine with disc space narrowing, endplate sclerosis, and smalllytic or blastic lesions.Upper Abdomen:There are calcified hepatic and splenic granuloma. Noadrenal masses.IMPRESSION:No evidence of pulmonary embolic disease.Centrilobular emphysematous change. There are bilateral pleuraleffusions with bibasilar atelectasis. There is scarring andbronchiectasis. There is focal pleural thickening in the right upperlobe laterally with adjacent parenchymal lung disease. This mayrepresent scarring however short-term follow-up, 3 to 6 months isrecommendedElectronically signed in PS360 by: Darcy Collazo M.D. 06/07/2020 17:34EDT Reported By: DARCY COLLAZO M.D.Results Reviewed labs reviewed, rhythm reviewed by me, ABG reviewedAssessment/PlanProblem List1. Chronic obstructive pulmonary disease with hypoxiaStatus AcuteOnset Date 06/08/20A&PPatient remains intermittently hypoxia when sleeping. Has refused BIPAP andventi mask. Understands effects of persistent hypoxic state. Agrees to NC O26L only.- spoken with patient's son (Doni)- no overt wheezing appreciated. Duoneb prn- CT chest angiogram negative for PE- pleural effusions may require further exploration in AM.2. HypoglycemiaStatus AcuteOnset Date 06/08/20A&P- resolved- continue q4hr CBG monitoring3. Advance directive discussed with patientStatus AcuteOnset Date 06/08/20A&P-Patient has expressed she would like to resend her CODE STATUS and change toDNR/DNI. However will await for her son [place] to arrive in the morning tochange this CODE STATUS4. Decline in pulmonary statusStatus AcuteOnset Date 06/08/20A&PPAtient has been treated for PNA and COPD exacerbation- no acute evidence of PE- bilateral pleural effusions noted on CT chest. Consideration for ultrasoundto further evaluation fluid may be warranted in AM.- continue oxygen 6L NC (patient declines bipap and ventimask)- ABG reviewed.5. Current non-adherence to medical treatmentStatus AcuteOnset Date 06/08/20Resuscitation status Full codePlan discussed with patient, son (Doni (via telephone))Case discussed with UNDERGROUND PRODUCTION FOREPERSON- KateCritical Care Time* Based on my evaluation, the patient has the above life-threateningconditions.* I have personally provided [35 ] minutes of critical care time exclusive ofbillable procedures caring for the patient.Advance Care Planning* [14 ] minutes of mjgb-bt-xwwo time spent for Advance Care Planning inexplanation/discussion of Advance Directives.* Decisions reached: [ PATIENT WOULD LIKE TO RESCIND CURRENT MOLST FORM TO DNR/DNI- HOWEVER WILL WAIT FOR HER SON TO ARRIVE THIS MORNING].VTE ProphylaxisVTE Prophylaxis: [ heparin sq].DATE SIGNED: 06/08/20 Electronically SignedTIME SIGNED: 730 JAMIR ALLEN MD Name Value Range Interpretation Code Description Data Rosa rce(s) Supporting Document(s) ID Date Data Source [id number] 06/07/2020 09:13:00 PM EDT [facility] O[facility] % or Liter Flow: 4L Name Value Range Interpretation Code Description Data Rosa rce(s) Supporting Document(s) PO2 53.9 mmHg 80-100 L [facility] PCO2 40.8 mmHg 35-50 N [facility] PH 7.447 7.360-7.440 H [facility] HCO3(ABG) 27.5 mmol/L 20-33 N [facility] %SATO2 88.3 % 95-100 L [facility] BASE EXCESS 3.2 mmol/L -3 TO +3 N [facility] DEVICE/FIO2 4L N [facility] tHb 10.8 g/dL 12-18 L [facility] FO2Hb 87.6 % 94.0-97.0 L [facility] FMETHb 0.5 % 0.0-1.5 N [facility] CO 0.3 % N [facility] CARBOXYHEMOGLOBIN INTERPRET ATION % TOTAL HEMOGLOBIN NONSMOKER: <2% AVERAGE SMOKER: 4-5% 1-2 PACKS/DAY HEAVY SMOKER 8-12% >2 PACKS/DAY POTENTIALLY TOXIC: >15% ID Date Data Source [id number] 06/08/2020 01:48:00 PM EDT [address] [id number] NOTEPATIENT NAME: ELA PONCE BATTENDING PHYSICIAN: MICHAEL WANG MDAUTHOR: Shankar Denis DO. DATE: 05/18/20 MR#: [id number] NOTE DATE: 06/07/20 RM#: [id number] TIME: 1415 : 45SubjectiveEvents Since Last EntryThis progress note is for encounters on 06/07/2020. Initial progress note for 06/07/2020 was placed in the wrong section and it was corrected.Patient seen and examined in the room multiple time. José Miguel michel had fall in themorning. Patient was seen shortly after the incidence. patient tried to walk tobedside commode without notifying nursing staffs. Patient denied hitting herhead. Patient started demonstrating decrease alertness and awakeness especiallyin the afternoon. Patient was noted to worsening hypoxia with saturation in low80s especially during sleep. Patient demonstrated labored breathing withaccessory muscle use. ABG ordered and reviewed. Patient initially placed on non-rebreather then transitioned to BiPAP. STAT dose of IV lasix was given. CT ofhead and CT angiogram of chest ordered. Patient was transferred to ICU forclose monitoring. Repeated STAT lab was ordered. After patient arrived ICU,patient was found to have severe hypoglycemia, amp of D50 was given. Repeatglucose measurement demonstrated improvement.ObjectiveVital SignsVital Signs-24 HRS06/[id number] 3172 1800 2000 2001Temp 97.8 97.2 96.8 98.7Pulse 75 95 62 68Resp 20 24 13 16B/P 119/90 119/56 115/48 142/61B/P MeanPulse Ox 93 95 95 90 91O2 Delivery Nasal cannula BiPAPO2 Flow Rate 4L 4LZzE25806/07040 2201 0000 0200 0200Temp 98.4Pulse 66 67 74 68Resp 13 21 13B/P 138/52 118/45 145/61 148/54B/P MeanPulse Ox 92 87 88O2 DeliveryO2 Flow [id number]/[id number] 6886 0615 0630 0645Temp 98.4Pulse 80 79 83 81Resp 21 16 18 15B/P 154/60 127/90 162/61 146/56B/P MeanPulse Ox 85 94 91 94O2 DeliveryO2 Flow KbqhFcS60406/08700 0700 0715 0730 0745TempPulse 87 79 78 86Resp 16 16 15 17B/P 174/60 139/51 135/54 161/64B/P MeanPulse Ox 89 94 94 92O2 DeliveryO2 Flow XsnaAtL10906/08800 0815 0815 0819 0820Temp 98.2Pulse 87Resp 23B/P 136/64 136/64 136/64B/P MeanPulse Ox 93O2 DeliveryO2 Flow TnfgMcR13506/08820 0823 0845 0900 0915TempPulse 88 88 86 85 77Resp 19 17 17B/P 136/64 136/64 172/65 166/63 151/59B/P MeanPulse Ox 96 94 95O2 DeliveryO2 Flow EellQqA32506/08583979 1343 0930 0945 1000TempPulse 76 73 73Resp 17 16 12B/P 148/56 131/52 141/50B/P MeanPulse Ox 92 95 96O2 Delivery Nasal cannulaO2 Flow Rate 6AeA96906/08015 1030 1045 1045 1100TempPulse 75 75 72 70Resp 15 23 15 17B/P 140/118 142/58 144/53 142/55B/P MeanPulse Ox 93 93 95 95O2 DeliveryO2 Flow LbayXzX13206/08115 1130 1145 1200 1200TempPulse 72 70 71 72Resp 15 16 15 18B/P 125/42 121/52 119/52 130/48B/P MeanPulse Ox 94 94 91 93O2 DeliveryO2 Flow WnsgPkF87806/[id number] 4806 1245TempPulse 73 71 72Resp 13 21 16B/P 100/79 140/51 125/47B/P MeanPulse Ox 93 93 90O2 DeliveryO2 Flow TyxeNaS9Uenwij/OutputIntake/Output Summary 24 hours06/07 1900 06/08 0700Intake Total 100Output Total 500 1000Balance -500 -900Intake, Oral 100Output, Urine 500 1000Current MedicationsMiscellaneous (Patch off) 1 PAT QHS NAMethylprednisolone (Solumedrol) 40 MG Q12H IVNicotine (Nicoderm) 14 MG DAILY TOPDuloxetine HCl (Cymbalta) 60 MG DAILY POGabapentin (Neurontin) 300 MG TID POOxycodone HCl (Oxyir) 5 MG Q8HPRN PRN POAmlodipine Besylate (Norvasc) 10 MG DAILY POClopidogrel Bisulfate (Plavix) 75 MG DAILY POFolic Acid (Folvite) 1 MG DAILY POInsulin Detemir (Levemir) 10 UNIT DAILY SUBCUTIsosorbide Mononitrate (Imdur) 120 MG DAILY POLevothyroxine Sodium (Synthroid) 75 MCG DAILY POLisinopril (Prinivil,Zestril) 40 MG DAILY POMultivitamins (Multivitamin) 1 TAB DAILY POThiamine HCl (VITAMIN B1) 100 MG DAILY POFurosemide (Lasix) 40 MG 0800,1630 IVInsulin Aspart (Humalog Insulin) Low dose sliding scaleAC MEAL SUBCUTAlbuterol Sulfate (Ventolin) 2 PUFFSQID INHAtorvastatin Calcium (Lipitor) 40 MG QHS POBuspirone HCl (Buspar) 5 MG BID POChlorhexidine Gluconate (Chlorhexidine Gluconate) 0 BID MMCyclobenzaprine HCl (Flexeril) 5 MG TID POFerrous Sulfate (Iron) 325 MG BID POHeparin Sodium (Porcine) (Heparin Sodium) 5,000 UNIT Q12H SUBCUTHydralazine HCl (Apresoline) 50 MG TID POInsulin Aspart (Humalog Insulin) 0 QHS SUBCUTMetoprolol Tartrate (Lopressor) 75 MG BID POMiconazole (Monistat-7) 0 BID VAGMiscellaneous (Patch off) 1 PAT QHS NANystatin (Mycostatin,Nilstat Powder) 1 GMTID TOPPantoprazole Sodium (Protonix) 40 MG BID POSodium Chloride (Saline Flush Syr(10ML)) 10 ML Q12H IVGlucose (Insta-Glucose) 15 GM DAILY NEEDED PRN POAcetaminophen (Tylenol) 650 MG Q6HPRN PRN POAcetaminophen (Tylenol) 650 MG Q6HPRN PRN POAlbuterol/Ipratropium (Duoneb) 3 ML Q6HWA PRN INHGlucose (Insta- Glucose) 15 GM DAILY NEEDED PRN POSenna/Docusate Sodium (Senokot S) 2 TAB QHSPRN PRN POSodium Chloride (Saline Flush Syr(10ML)) 10 ML QIDPRN PRN IVExamGeneral Appearance afebrile, lethargicHead atraumatic, normocephalicENT moist mucosal membranesNeck no JVDCardiovascular regular rate, normal heart soundsRespiratory on oxygen (BiPAP), accessory muscle use, decreased breath sounds,rales, bipapAbdomen soft, non-tender, no distention, normal bowel sounds, no guardingExtremities no cyanosis, no edema, normal pulses, Pedal pulses +1 bilaterallyfeet are warm and well perfused.Muscoskeletal full range of motion, normal inspectionNeurological Unable to evaluatePsych/Mental Status unable to evaluateResultsLaboratory DataRecent Labs- 24 [id number] 1736Blood GasABG pH (7.360 - 7.440) 7.406ABG pCO2 (35 - 50 mmHg) 45.3ABG pO2 (80 - 100 mmHg) 69.0 LABG O2 Saturation (95 - 100 %) 92.9 LABG Base Excess (-3 TO +3 mmol/L) 2.6Oxyhemoglobin (94.0 - 97.0 %) 91.9 LCarboxyhemoglobin (%) 0.5Methemoglobin (0.0 - 1.5 %) 0.6Total Hemoglobin (12 - 18 g/dL) 11.6 LFiO2 100%ChemistrySodium (136 - 147 mmol/L) 144Potassium (3.5 - 5.1 mmol/L) 4.1Chloride (99 - 110 mmol/L) 109Serum Bicarbonate (20 - 33 mmol/L) 27.8 28Anion Gap (10.0 - 20.0) 11.1BUN (7 - 23 mg/dL) 34 HCreatinine (0.500 - 1.300 mg/dL) 0.932Estimated GFR/1.73 m2 (mL/min) > 60Glucose (70 - 110 mg/dL) 36 PLCalcium (8.3 - 10.7 mg/dL) 8.3Total Bilirubin (0.1 - 1.1 mg/dL) 0.4AST (6 - 38 U/L) 20ALT (6 - 54 U/L) 19Alkaline Phosphatase (45 - 117 U/L) 205 HAmmonia (11 - 32 umol/L) 12.0C-Reactive Protein (0.00 - 0.49 mg/dL) 5.97 CKci-F-Ixwvvejnzyh Pept (0 - 125 pg/mL) 5531 HTotal Protein (6.0 - 7.8 g/dL) 5.4 LAlbumin (3.5 - 5.0 g/dL) 2.4 LGlobulin (2.3 - 3.5 g/dL) 3.0Albumin/Globulin Ratio (1.0 - 2.5) 0.8 LHematologyWBC (4.0 - 10.5 x10E3/uL) 9.98RBC (4.20 - 5.40 x10E6/uL) 3.08 LHgb (12.0 - 16.0 g/dL) 9.3 LHct (37.0 - 47.0 %) 29.2 LMCV (81.0 - 99.0 fL) 94.8MCH (27.0 - 31.0 pg) 30.2MCHC (32.7 - 35.6 g/dL) 31.8 LRDW (11.5 - 14.0 %) 17.5 HPlt Count (150 - 450 x10E3/uL) 177MPV (6.9 - 9.5 fl) 9.8 HImmature Gran % (Auto) (0.1 - 2.0 %) 0.4Neut % (Auto) (34 - 64 %) 86.7 HLymph % (Auto) (25 - 45 %) 3.9 LMono % (Auto) (1.7 - 10.6 %) 8.3Eos % (Auto) (0.4 - 7.0 %) 0.4Baso % (Auto) (0.1 - 2.0 %) 0.3Abs Immat Gran (auto) (0.0 - 0.1 x10E3/uL) 0.04Absolute Neuts (auto) (1.2 - 7.6 x10E3/uL) 8.65 HAbsolute Lymphs (auto) (1.0 - 3.5 x10E3/uL) 0.39 LAbsolute Monos (auto) (0.1 - 1.0 x10E3/uL) 0.83Absolute Eos (auto) (0.1 - 0.7 x10E3/uL) 0.04 LAbsolute Basos (auto) (0.0 - 0.1 x10E3/uL) 0.03Nucleated RBC % (auto) (0 %) 0RBC Morphology 1+ [id number] 1736 1758Blood GasABG pH CancelledABG pCO2 CancelledABG pO2 CancelledABG O2 Saturation CancelledABG Base Excess CancelledOxyhemoglobin CancelledCarbo xyhemoglobin CancelledMethemoglobin CancelledTotal Hemoglobin CancelledFiO2 CancelledChemistrySerum Bicarbonate CancelledPlasma Lactic Acid Sedrick (0.4 - 2.0 mmol/L) 0.4Troponin I High Sens ( 3.0 - 82.3 ng/L) 33. 2100Blood GasABG pH (7.360 - 7.440) 7.447 HABG pCO2 (35 - 50 mmHg) 40.8ABG pO2 (80 - 100 mmHg) 53.9 LABG O2 Saturation (95 - 100 %) 88.3 LABG Base Excess (-3 TO +3 mmol/L) 3.2Oxyhemoglobin (94.0 - 97.0 %) 87.6 LCarboxyhemoglobin (%) 0.3Methemoglobin (0.0 - 1.5 %) 0.5Total Hemoglobin (12 - 18 g/dL) 10.8 LFiO2 4LChemistrySerum Bicarbonate (20 - 33 mmol/L) 27.5UrinesUrine Color YellowUrine Appearance ClearUrine pH (5.0 - 8.0) 5.5Ur Specific [place] (1.010 - 1.025) 1.012Urine Protein (Negative) 3+Urine Ketones (NEGATIVE) NegativeUrine Blood (NEGATIVE) NegativeUrine Nitrite (Negative) NegativeUr Bilirubin Confirm (NEGATIVE) NegativeUrine Urobilinogen (0.2 - 1.0 mg/dL) 0.2Urine Leukocytes (Negative) NegativeUrine RBC (NONE SEEN) 0-2 RBCs/HPFUrine WBC (NONE SEEN) 0-2 WBCs/HPFUrine Bacteria (NONE SEEN) FewUrine Casts (NONE SEEN) FEW GRANULAR/LPFFEW HYALINE/LPFUrine Mucus (NONE SEEN) FewUrine Glucose (NEGATIVE) [id number] (136 - 147 mmol/L) 144Potassium (3.5 - 5.1 mmol/L) 4.5Chloride (99 - 110 mmol/L) 108Serum Bicarbonate (20 - 33 mmol/L) 30Anion Gap (10.0 - 20.0) 10.5BUN (7 - 23 mg/dL) 30 HCreatinine (0.500 - 1.300 mg/dL) 0.913Estimated GFR/1.73 m2 (mL/min) > 60Glucose (70 - 110 mg/dL) 141 HCalcium (8.3 - 10.7 mg/dL) 8.1 LMagnesium (1.6 - 2.6 mg/dL) 1.8HematologyWBC (4.0 - 10.5 x10E3/uL) 6.77RBC (4.20 - 5.40 x10E6/uL) 3.38 LHgb (12.0 - 16.0 g/dL) 10.2 LHct (37.0 - 47.0 %) 32.0 LMCV (81.0 - 99.0 fL) 94.7MCH (27.0 - 31.0 pg) 30.2MCHC (32.7 - 35.6 g/dL) 31.9 LRDW (11.5 - 14.0 %) 17.5 HPlt Count (150 - 450 x10E3/uL) 170MPV (6.9 - 9.5 fl) 9.7 HImmature Gran % (Auto) (0.1 - 2.0 %) 0.3Neut % (Auto) (34 - 64 %) 82.7 HLymph % (Auto) (25 - 45 %) 6.4 LMono % (Auto) (1.7 - 10.6 %) 9.2Eos % (Auto) (0.4 - 7.0 %) 1.3Baso % (Auto) (0.1 - 2.0 %) 0.1Abs Immat Gran (auto) (0.0 - 0.1 x10E3/uL) 0.02Absolute Neuts (auto) (1.2 - 7.6 x10E3/uL) 5.60Absolute Lymphs (auto) (1.0 - 3.5 x10E3/uL) 0.43 LAbsolute Monos (auto) (0.1 - 1.0 x10E3/uL) 0.62Absolute Eos (auto) (0.1 - 0.7 x10E3/uL) 0.09 LAbsolute Basos (auto) (0.0 - 0.1 x10E3/uL) 0.01Nucleated RBC % (auto) (0 %) 0RadiologyCHEST SINGLE VIEWDATE OF EXAMINATION: 06/07/2020 15:20 EDTCHEST SINGLE VIEWHISTORY: HypoxiaTECHNIQUE: Single frontal radiograph of chestCOMPARISON: 05/30/2020FINDINGS:Right upper lobe parenchymal disease is unchanged. Cardiac silhouetteand pulmonary vascularity is within normal limits. Lungs are otherwiseclear.IMPRESSION:Persistent parenchymal disease in the right upper lobe withoutinterval change. Continued follow-up to resolution is encouraged.CT BRAIN W/O CONTRASTDATE OF EXAMINATION: 06/07/2020 16:29 EDTCT BRAIN W/O CONTRASTINDICATION: Altered mental status, fallCOMPARISON: None.This CT exam was performed using the following dose reductiontechniques: Automated exposure control, adjustment of mA and/or kVaccording to the patient's size, and use of iterative reconstructiontechnique.TECHNIQUE: Axial images were obtained from the heath magnum to thevertex.FINDINGS: The basal cisterns cortical sulci and ventricles areprominent consistent with atrophic change. There is decreasedattenuation of the periventricular white matter, consistent with smallvessel ischemic disease. There is no mass effect or midline shift. Nointracranial bleeds. No intra or extra-axial collections. Thecalvarium and extracranial soft tissues are unremarkable. Thevisualized paranasal sinuses are well aerated.IMPRESSION:Atrophic changes with periventricular leukomalacia. No acuteintracranial abnormalities.CT ANGIO CHEST WITH IV FOR PDATE OF EXAMINATION: 06/07/2020 16:29 EDTCT ANGIO CHEST WITH IV FOR PEHISTORY: HypoxiaThis CT exam was performed using the following dose reductiontechnique: automated exposure control, adjustment of mA and/or kVaccording to the patient's size, and use of iterative reconstructiontechnique.Standard contiguous axial spiral imaging was obtained with dynamicintravenous contrast administration and pulmonary arterial phaseimaging from the lung apices through the lung bases and with coronalreformatting.FINDINGS:Pulmonary Arteries: No filling defects within the pulmonary arterialsystem to suggest the presence of pulmonary embolic disease.A shyam: No dissection or aneurysm. There is atherosclerotic change.Lungs: Centrilobular emphysematous change. There is scarring andbronchiectasis. There is atelectatic change in both lower lobesadjacent to the pleural effusions. There is a 1 cm focal opacity inthe right upper lobe with extension to the pleural surface and slightcavitation.Pleural Space: Small bilateral pleural effusions. There is an areathickening with adjacent parenchymal disease in the right lateralhemithorax. This may represent thickening and associated scarring..Heart: There are coronary artery calcifications. Left ventricular wal ldoes appear slightly thickened.Lymph nodes:There is a 1.3 cm AP window node and 1 cm azygous node.There is an 8.2 mm left periaortic nodeSoft Tissues: UnremarkableBones/joints:There is degenerative change throughout the thoracicspine with disc space narrowing, endplate sclerosis, and smallosteophytes at multiple levels. The bones are osteopenic. No bonylytic or blastic lesions.Upper Abdomen:There are calcified hepatic and splenic granuloma. Noadrenal masses.IMPRESSION:No evidence of pulmonary embolic disease.Centrilobular emphysematous change. There are bilateral pleuraleffusions with bibasilar atelectasis. There is scarring andbronchiectasis. There is focal pleural thickening in the right upperlobe laterally with adjacent parenchymal lung disease. This mayrepresent scarring however short-term follow-up, 3 to 6 months isrecommendedAssessment/PlanProblem List1. Acute and chronic respiratory failureA&P- Patiient has been on 3L oxygen for her COPD.- ABG revewied. CT angiogram reviewed. CT demonstrated effusion with bilateralatelectasis. CT also demonstrated lung scarring and emphysematous change.- Garcia inserted. Continue IV lasix. Continue BiPAP. Continue breathingtreatments.2. HypoglycemiaStatus AcuteOnset Date 06/08/20A&P- Repeat BMP demonstrated glucose level of 36. S/P amp of D50. Repeat glucoselevel demonstrated improvement.- Due to mental status change, patient is place on NPO. Continue with slidingscale.3. Ramon&P- Patient has been on plavix for PVD and heparin for DVT prophylaxis.- Patient try to walk to bedside commode without notifying nursing staffs.Patient was seen shortly after the event. Patient landed on her buttock.Patient denied hitting her head.- CT head was negative for acute finding.4. Chronic obstructive pulmonary disease with hypoxiaStatus AcuteOnset Date 06/08/20A&P- Patient is on BiPAP.5. DepressionStatus Chronic6. Spinal stenosisStatus Chronic7. DiabetesStatus Chronic8. AnxietyStatus Acute9. Anemia of chronic diseaseStatus AcuteA&P- Stable.10. CandidiasisStatus AcuteA&P- Continue miconazole vaginal cream.11. HypothyroidismStatus ChronicA&P- Continue synthroid.12. PVD (peripheral vascular disease)Status ChronicA&P- Continue plavix.Resuscitation status Full codeCritical Care Time* Based on my evaluation, the patient has the above life- threateningconditions.* I have personally provided 35 minutes of critical care time exclusive ofbillable procedures caring for the patient.VTE ProphylaxisVTE Prophylaxis: Continue heparin.DATE SIGNED: 06/11/20 Electronically SignedTIME SIGNED: [id number] HO CIRADO Name Value Range Interpretation Code Description Data Rosa rce(s) Supporting Document(s) ID Date Data Source [id number] 06/07/2020 06:27:00 PM EDT [facility] Name Value Range Interpretation Code Description Data Rosa rce(s) Supporting Document(s) URINE COLOR Yellow [facility] UAPR Clear [facility] UGLU Negative NEGATIVE [facility] URINE BILIRUBIN Negative NEGATIVE [facility] UKET Negative NEGATIVE [facility] USG 1.012 1.010-1.025 [facility] UBLO Negative NEGATIVE [facility] UpH 5.5 5.0-8.0 [facility] UPRO 3+ Negative [facility] UUB 0.2 mg/dL 0.2-1.0 [facility] UNIT Negative Negative [facility] ULEU Negative Negative [facility] ID Date Data Source [id number] 06/07/2020 06:27:00 PM EDT [facility] Name Value Range Interpretation Code Description Data Rosa rce(s) Supporting Document(s) URINE RBC 0-2 RBCs/HPF NONE SEEN [facility] URINE WBC 0-2 WBCs/HPF NONE SEEN [facility] URINE BACTERIA Few NONE SEEN [facility] l URINE EPI. Rare NONE SEEN [facility] FEW GRANULAR/LPFFEW HYALINE/LPF UMUCUS Few NONE SEEN [facility] ID Date Data Source [id number] 06/07/2020 05:46:00 PM EDT [facility] Exam Number: [id number] OF EXAMINATIO N: 06/07/2020 16:29 EDTCT ANGIO CHEST WITH IV FOR PEHISTORY: HypoxiaThis CT exam was performed using the following dose reductiontechnique: automated exposure control, adjustment of mA and/or kVaccording to the patient's size, and use of iterative reconstructiontechnique.Standard contiguous axial spiral imaging was obtained with dynamicintravenous contrast administration and pulmonary arterial phaseimaging from the lung apices through the lung bases and with coronalreformatting.FINDINGS:Pulmonary Arteries: No filling defects within the pulmonary arterialsystem to suggest the presence of pulmonary embolic disease.Aorta: No dissection or aneurysm. There is atherosclerotic change.Lungs: Centrilobular emphysematous change. There is scarring andbronchiectasis. There is atelectatic change in both lower lobesadjacent to the pleural effusions. There is a 1 cm focal opacity inthe right upper lobe with extension to the pleural surface and slightcavitation.Pleural Space: Small bilateral pleural effusions. There is an areathickening with adjacent parenchymal disease in the right lateralhemithorax. This may represent thickening and associated scarring..Heart: There are coronary artery calcifications. Left ventricular walldoes appear slightly thickened.Lymph nodes:There is a 1.3 cm AP window node and 1 cm azygous node.There is an 8.2 mm left periaortic nodeSoft Tissues: UnremarkableBones/joints:There is degenerative change throughout the thoracicspine with disc space narrowing, endplate sclerosis, and smallosteophytes at multiple levels. The bones are osteopenic. No bonylytic or blastic lesions.Upper Abdomen:There are calcified hepatic and splenic granuloma. Noadrenal masses.IMPRESSION:No evidence of pulmonary embolic disease.Centrilobular emphysematous change. There are bilateral pleuraleffusions with bibasilar atelectasis. There is scarring andbronchiectasis. There is focal pleural thickening in the right upperlobe laterally with adjacent parenchymal lung disease. This mayrepresent scarring however short-term follow-up, 3 to 6 months isrecommendedElectronically signed in PS360 by: Darcy Collazo M.D. 06/07/2020 17:34EDT Reported By: Kemal COLLAZO M.D. Signed By: DARCY COLLAZO M.D. Name Value Range Interpretation Code Description Data Rosa rce(s) Supporting Document(s) ID Date Data Source [id number] 06/07/2020 05:39:00 PM EDT [facility] Exam Number: [id number] OF EXAMINATIO N: 06/07/2020 16:29 EDTCT BRAIN W/O CONTRASTINDICATION: Altered mental status, fallCOMPARISON: None.This CT exam was performed using the following dose reductiontechniques: Automated exposure control, adjustment of mA and/or kVaccording to the patient's size, and use of iterative reconstructiontechnique.TECHNIQUE: Axial images were obtained from the heath magnum to thevertex.FINDINGS: The basal cisterns cortical sulci and ventricles areprominent consistent with atrophic change. There is decreasedattenuation of the periventricular white matter, consistent with smallvessel ischemic disease. There is no mass effect or midline shift. Nointracranial bleeds. No intra or extra-axial collections. Thecalvarium and extracranial soft tissues are unremarkable. Thevisualized paranasal sinuses are well aerated.IMPRESSION:Atrophic changes with periventricular leukomalacia. No acuteintracranial abnormalities.Electronically signed in [id number] by: Darcy Collazo M.D. 06/07/2020 17:27EDT Reported By: - DARCY COLLAZO M.D. Signed By: DARCY COLLAZO M.D. Name Value Range Interpretation Code Description Data Rosa rce(s) Supporting Document(s) ID Date Data Source [id number] 06/07/2020 06:19:00 PM EDT [facility] Name Value Range Interpretation Code Description Data Rosa rce(s) Supporting Document(s) C-REACTIVE PROT 5.97 mg/dL 0.00-0.49 H [facility] ID Date Data Source [id number] 06/07/2020 06:19:00 PM EDT [facility] Name Value Range Interpretation Code Description Data Rosa rce(s) Supporting Document(s) NT-PROBNP 5531 pg/mL 0-125 H [facility] ID Date Data Source [id number] 06/07/2020 06:19:00 PM EDT [facility] Name Value Range Interpretation Code Description Data Rosa rce(s) Supporting Document(s) GLU 36 mg/dL 70-110 PL [facility] Patients taking Sulfasalazine may have f alsely depressedGlucose levels. Patients taking Sulfapyridine may havefalsely elevated Glucose levels. Patients should be drawnfor Glucose before the initial administration of eitherdrug. BUN 34 mg/dL 7-23 H [facility] CRE 0.932 mg/dL 0.500-1.300 N [facility] GFR > 60 mL/min [facility] CHLORIDE 109 mmol/L 99-110 [facility] NA 144 mmol/L 136-147 [facility] POTASSIUM 4.1 mmol/L 3.5-5.1 [facility] TCO2 28 mmol/L 20-33 [facility] ANION GAP 11.1 10.0-20.0 [facility] CA 8.3 mg/dL 8.3-10.7 [facility] ALKALINE PHOS 205 U/L 45-117 H [facility] TP 5.4 g/dL 6.0-7.8 [facility] ALB 2.4 g/dL 3.5-5.0 [facility] ESRD Dialysis patient Albumin reference range: 2.9-4.4 g/dL GL 3.0 g/dL 2.3-3.5 [facility] A/G 0.8 1.0-2.5 [facility] T. BILIRUBIN 0.4 mg/dL 0.1-1.1 [facility] The [employer] [place] Total Bilirubin is n ot recommended forpatients undergoing treatment with eltrombopag (Promacta)due to the potential for falsely elevated results. ALTI 19 U/L 6-54 [facility] Patients taking Sulfasalazine and/or Sul fapyridine may havefalsely depressed ALT levels. Patients should be drawn forALT before the initial administration of either drug. AST 20 U/L 6-38 [facility] Patients taking Sulfasalazine and/or Sul fapyridine may havefalsely depressed AST levels. Patients should be drawn forAST before the initial administration of either drug. ID Date Data Source [id number] 06/07/2020 06:15:00 PM EDT [facility] Name Value Range Interpretation Code Description Data Rosa rce(s) Supporting Document(s) TROPONIN HS 33.3 ng/L 3.0-82.3 [facility] ID Date Data Source [id number] 06/07/2020 06:15:00 PM EDT [facility] Name Value Range Interpretation Code Description Data Rosa rce(s) Supporting Document(s) LACTIC ACID COMFORT 0.4 mmol/L 0.4-2.0 [facility] ID Date Data Source [id number] 06/07/2020 06:14:00 PM EDT [facility] Name Value Range Interpretation Code Description Data Rosa rce(s) Supporting Document(s) AMMONIA 12.0 umol/L 11-32 N [facility] Patients taking Sulfasalazine may have f alselyelevated Ammonia results. Patients taking Sulfapyridine mayhave falsely depressed Ammonia levels. Patients should bedrawn for Ammonia before the initial administration ofeither drug. ID Date Data Source [id number] 06/07/2020 06:04:[facility] Name Value Range Interpretation Code Description Data Rosa rce(s) Supporting Document(s) WBC 9.98 x10E3/uL 4.0-10.5 [facility] RBC 3.08 x10E6/uL 4.20-5.40 [facility] Hemoglobin 9.3 g/dL 12.0-16.0 [facility] Hematocrit 29.2 % 37.0-47.0 [facility] MCV 94.8 fL 81.0-99.0 [facility] MCH 30.2 pg 27.0-31.0 [facility] MCHC 31.8 g/dL 32.7-35.6 L [facility] RDW 17.5 % 11.5-14.0 H [facility] Platelet count 177 x10E3/uL 150-450 N [facility] ital MPV 9.8 fl 6.9-9.5 H [facility] Neutrophils 86.7 % 34-64 H [facility] Lymphocytes 3.9 % 25-45 L [facility] Monocytes 8.3 % 1.7-10.6 [facility] Eosinophils 0.4 % 0.4-7.0 [facility] Basophils 0.3 % 0.1-2.0 [facility] Imm. Gran. 0.4 % 0.1-2.0 [facility] Abs. Neutro. 8.65 x10E3/uL 1.2-7.6 [facility] Abs. Lymph. 0.39 x10E3/uL 1.0-3.5 [facility] Abs. Curry. 0.83 x10E3/uL 0.1-1.0 [facility] Abs. Eosin. 0.04 x10E3/uL 0.1-0.7 [facility] Abs. Baso. 0.03 x10E3/uL 0.0-0.1 [facility] Abs. Imm. Gran. 0.04 x10E3/uL 0.0-0.1 N [facility] ANRBC% 0 % 0 N [facility] DIFFERENTIAL CONFIRMED BY SLIDE REVIEW. RBC MORPHOLOGY 1+ ANISOCYTOSIS [facility] RBC MORPHOLOGY EXPECTED RESULTS: NORMAL = NORMOCHROMIC, NORMOCYTIC CELLSAny findings other than Normal will be reported and areconsidered Abnormal. The significance of Abnormalfindings are to be clinically correlated by the provider. ID Date Data Source [id number] 06/07/2020 04:04:00 PM EDT [facility] Exam Number: [id number] OF EXAMINATIO N: 06/07/2020 15:20 EDTCHEST SINGLE VIEWHISTORY: HypoxiaTECHNIQUE: Single frontal radiograph of chestCOMPARISON: 05/30/2020FINDINGS:Right upper lobe parenchymal disease is unchanged. Cardiac silhouetteand pulmonary vascularity is within normal limits. Lungs are otherwiseclear.IMPRESSION:Persistent parenchymal disease in the right upper lobe withoutinterval change. Continued follow-up to resolution is encouraged.Electronically signed in [id number] by: Tabitha De La Vega M.D. 115:52 EDT Reported By: - Pramod DE LA VEGA M.D. Signed By: Pramod DE LA VEGA M.D. Name Value Range Interpretation Code Description Data Rosa rce(s) Supporting Document(s) ID Date Data Source [id number] 06/07/2020 03:46:00 PM EDT [facility] O2 % or Liter Flow: 6L Name Value Range Interpretation Code Description Data Rosa rce(s) Supporting Document(s) PO2 69.0 mmHg 80-100 L [facility] PCO2 45.3 mmHg 35-50 N [facility] PH 7.406 7.360-7.440 [facility] HCO3(ABG) 27.8 mmol/L 20-33 [facility] %SATO2 92.9 % 95-100 L [facility] BASE EXCESS 2.6 mmol/L -3 TO +3 N [facility] DEVICE/FIO2 100% [facility] tHb 11.6 g/dL 12-18 L [facility] FO2Hb 91.9 % 94.0-97.0 [facility] FMETHb 0.6 % 0.0-1.5 N [facility] CO 0.5 % [facility] CARBOXYHEMOGLOBIN INTERPRET ATION % TOTAL HEMOGLOBIN NONSMOKER: <2% AVERAGE SMOKER: 4-5% 1-2 PACKS/DAY HEAVY SMOKER 8-12% >2 PACKS/DAY POTENTIALLY TOXIC: >15% ID Date Data Source [id number] 06/07/2020 12:50:00 PM EDT [facility] Name Value Range Interpretation Code Description Data Rosa rce(s) Supporting Document(s) FGLU 110 mg/dL 70-110 N [facility] ID Date Data Source [id number] 06/07/2020 03:52:00 PM EDT [facility] Name Value Range Interpretation Code Description Data Rosa rce(s) Supporting Document(s) FGLU 143 mg/dL 70-110 H [facility] ID Date Data Source [id number] 06/07/2020 05:23:00 PM EDT [facility] Name Value Range Interpretation Code Description Data Rosa rce(s) Supporting Document(s) FGLU 228 mg/dL 70-110 H [facility] ID Date Data Source [id number] 06/07/2020 06:08:00 AM EDT [facility] Name Value Range Interpretation Code Description Data Rosa rce(s) Supporting Document(s) FGLU 210 mg/dL 70-110 H [facility] ID Date Data Source [id number] 06/06/2020 08:18:00 PM EDT [facility] Name Value Range Interpretation Code Description Data Rosa rce(s) Supporting Document(s) FGLU 69 mg/dL 70-110 L [facility] ID Date Data Source [id number] 06/06/2020 08:04:00 PM EDT [facility] Name Value Range Interpretation Code Description Data Rosa rce(s) Supporting Document(s) FGLU 69 mg/dL 70-110 L [facility] ID Date Data Source [id number] 06/06/2020 09:36:00 PM EDT [facility] Name Value Range Interpretation Code Description Data Rosa rce(s) Supporting Document(s) FGLU 150 mg/dL 70-110 H [facility] ID Date Data Source [id number] 06/06/2020 10:41:00 AM EDT [facility] [place] [address] [id number] NOTEPATIENT NAME: ELA PONCE BATTENDING PHYSICIAN: MICHAEL WANG MDAUTHOR: Shankar Denis DO. DATE: 05/18/20 MR#: [id number] NOTE DATE: 06/06/20 RM#: [id number] TIME: 1050 : 45SubjectiveEvents Since Last EntryPatient seen and examined in the room today. No fever or chill. Denies anyworsening of the breathing.ObjectiveVital SignsVital Signs-24 HRS06/05423 2013 2128 2200 0652Temp 98.2 98.9 98.0Pulse 67 81 85 79Resp 17 17 17B/P 111/54 120/68 138/57 120/57B/P MeanPulse Ox 93 92 91O2 Delivery Nasal cannula Nasal cannulaO2 Flow Rate 3L [id number] 6379 0826 0826TempPulse 91 91RespB/P 121/66 121/66 121/66 121/66B/P MeanPulse OxO2 DeliveryO2 Flow DoaiAvE2Ybjwpi/OutputIntake/Output Summary 24 hours06/05 1900 06/06 0700Intake Total 1080 400Output Total 500Balance 1080 - 100Intake, Oral 1080 400Number 3 2UnmeasuredVoidsOutput, Urine 500Current MedicationsInsulin Detemir (Levemir) 10 UNIT DAILY SUBCUTMiconazole (Monistat-7) 0 BID VAGAlbuterol Sulfate (Ventolin) 2 PUFFSQID INHFluconazole (Diflucan) 200 MG Q24H POMagnesium Oxide (Magox) 400 MG DAILY PONystatin (Mycostatin,Nilstat Powder) 1 GMTID TOPIsosorbide Mononitrate (Imdur) 120 MG DAILY POMetoprolol Tartrate (Lopressor) 75 MG BID POAmlodipine Besylate (Norvasc) 10 MG DAILY POPantoprazole Sodium (Protonix) 40 MG BID POSenna/Docusate Sodium (Senokot S) 2 TAB QHSPRN PRN POOxycodone HCl (Oxyir) 10 MG Q6HPRN PRN POHeparin Sodium (Porcine) (Heparin Sodium) 5,000 UNIT Q12H SUBCUTFerrous Sulfate (Iron) 325 MG BID POCyclobenzaprine HCl (Flexeril) 5 MG TID POHydralazine HCl (Apresoline) 50 MG TID POLevothyroxine Sodium (Synthroid) 75 MCG DAILY PONicotine (Nicoderm) 21 MG DAILY TOPInsulin Aspart (Humalog Insulin) Low dose sliding scaleAC MEAL SUBCUTAtorvastatin Calcium (Lipitor) 40 MG QHS POBuspirone HCl (Buspar) 5 MG BID POChlorhexidine Gluconate (Chlorhexidine Gluconate) 0 BID MMInsulin Aspart (Humalog Insulin) 0 QHS SUBCUTMiscellaneous (Patch off) 1 PAT QHS NAAlbuterol/Ipratropium (Duoneb) 3 ML Q6HWA PRN INHClopidogrel Bisulfate (Plavix) 75 MG DAILY PODuloxetine HCl (Cymbalta) 60 MG DAILY POFolic Acid (Folvite) 1 MG DAILY POLisinopril (Prinivil,Zestril) 40 MG DAILY POMultivitamins (Multivitamin) 1 TAB DAILY POSodium Chloride (Saline Flush Syr(10ML)) 10 ML Q12H IVThiamine HCl (VITAMIN B1) 100 MG DAILY POAcetaminophen (Ty lenol) 650 MG Q6HPRN PRN POAcetaminophen (Tylenol) 650 MG Q6HPRN PRN POGlucose (Insta-Glucose) 15 GM DAILY NEEDED PRN POSodium Chloride (Saline Flush Syr(10ML)) 10 ML QIDPRN PRN IVExamGeneral Appearance no acute distress, afebrile, alert, awake, conversantHead atraumatic, normocephalicENT moist mucosal membranesNeck no JVDCardiovascular regular rate, no gallop, no rub, normal heart soundsRespiratory no distress, on oxygen, decreased breath sounds, ralesAbdomen soft, non-tender, no distention, normal bowel sounds, no guardingAbdominal quadrantsall normal bowel soundsUrinary no bladder distention, no flank painExtremities no cyanosis, no edema, normal pulses, Pedal pulses +1 bilaterallyfeet are warm and well perfused.Muscoskeletal full range of motion, normal inspectionNeurological alert, oriented x 3, normal cerebellar functio, normal speech, nomotor deficits, no sensory deficits, CNII- XXII grossly intact, no facialasymmetryLymphatic no lymphadenopathyPsych/Mental Status mood neutralResultsLaboratory DataRecent Labs-24 hours06/[id number] 5958 1318 1708 2019ChemistryPOC Glucose (70 - 110 mg/dL) 62 L 61 L 151 H 127 H 208 H006/[id number] 0631ChemistrySodium (136 - 147 mmol/L) 143Potassium (3.5 - 5.1 mmol/L) 4.8Chloride (99 - 110 mmol/L) 108Serum Bicarbonate (20 - 33 mmol/L) 27Anion Gap (10.0 - 20.0) 12.8BUN (7 - 23 mg/dL) 35 HCreatinine (0.500 - 1.300 mg/dL) 0.931Estimated GFR/1.73 m2 (mL/min) > 60Glucose (70 - 110 mg/dL) 188 HPOC Glucose (70 - 110 mg/dL) 236 HCalcium (8.3 - 10.7 mg/dL) 8.5Magnesium (1.6 - 2.6 mg/dL) 2.0HematologyWBC (4.0 - 10.5 x10E3/uL) 8.26RBC (4.20 - 5.40 x10E6/uL) 3.32 LHgb (12.0 - 16.0 g/dL) 10.0 LHct (37.0 - 47.0 %) 31.6 LMCV (81.0 - 99.0 fL) 95.2MCH (27.0 - 31.0 pg) 30.1MCHC (32.7 - 35.6 g/dL) 31.6 LRDW (11.5 - 14.0 %) 17.4 HPlt Count (150 - 450 x10E3/uL) 170MPV (6.9 - 9.5 fl) 10.3 HImmature Gran % (Auto) (0.1 - 2.0 %) 0.4Neut % (Auto) (34 - 64 %) 78.0 HLymph % (Auto) (25 - 45 %) 8.8 LMono % (Auto) (1.7 - 10.6 %) 10.2Eos % (Auto) (0.4 - 7.0 %) 2.2B aso % (Auto) (0.1 - 2.0 %) 0.4Abs Immat Gran (auto) (0.0 - 0.1 x10E3/uL) 0.03Absolute Neuts (auto) (1.2 - 7.6 x10E3/uL) 6.45Absolute Lymphs (auto) (1.0 - 3.5 x10E3/uL) 0.73 LAbsolute Monos (auto) (0.1 - 1.0 x10E3/uL) 0.84Absolute Eos (auto) (0.1 - 0.7 x10E3/uL) 0.18Absolute Basos (auto) (0.0 - 0.1 x10E3/uL) 0.03Nucleated RBC % (auto) (0 %) 0RadiologyCT BRAIN W/O CONTRASTDATE OF EXAMINATION: 06/07/2020 16:29 EDTCT BRAIN W/O CONTRASTINDICATION: Altered mental status, fallCOMPARISON: None.This CT exam was performed using the following dose reductiontechniques: Automated exposure control, adjustment of mA and/or kVaccording to the patient's size, and use of iterative reconstructiontechnique.TECHNIQUE: Axial images were obtained from the heath magnum to thevertex.FINDINGS: The basal cisterns cortical sulci and ventricles areprominent consistent with atrophic change. There is decreasedattenuation of the periventricular white matter, consistent with smallvessel ischemic disease. There is no mass effect or midline shift. Nointracranial bleeds. No intra or extra-axial collections. Thecalvarium and extracranial soft tissues are unr emarkable. Thevisualized paranasal sinuses are well aerated.IMPRESSION:Atrophic changes with periventricular leukomalacia. No acuteintracranial abnormalities.CT ANGIO CHEST WITH IV FOR PDATE OF EXAMINATION: 06/07/2020 16:29 EDTCT ANGIO CHEST WITH IV FOR PEHISTORY: HypoxiaThis CT exam was performed using the following dose reductiontechnique: automated exposure control, adjustment of mA and/or kVaccording to the patient's size, and use of iterative reconstructiontechnique.Standard contiguous axial spiral imaging was obtained with dynamicintravenous contrast administration and pulmonary arterial phasei maging from the lung apices through the lung bases and with coronalreformatting.FINDINGS:Pulmonary Arteries: No filling defects within the pulmonary arterialsystem to suggest the presence of pulmonary embolic disease.Aorta: No dissection or aneurysm. There is atherosclerotic change.Lungs: Centrilobular emphysematous change. There is scarring andbronchiectasis. There is atelectatic change in both lower lobesadjacent to the pleural effusions. There is a 1 cm focal opacity inthe right upper lobe with extension to the pleural surface and slightcavitation.Pleural Space: Small bilateral pleural effusions. There is an areathickening with adjacent parenchymal disease in the right lateralhemithorax. This may represent thickening and associated scarring..Heart: There are coronary artery calcifications. Left ventricular walldoes appear slightly thickened.Lymph nodes:There is a 1.3 cm AP window node and 1 cm azygous node.There is an 8.2 mm left periaortic nodeSoft Tissues: UnremarkableBones/joints:There is degenerative change throughout the thoracicspine with disc space narrowing, endplate sclerosis, and smallosteophytes at multiple levels. The bones are osteopenic. No bonylytic or blastic lesions.Upper Abdomen:There are calcified hepatic and splenic granuloma. Noadrenal masses.IMPRESSION:No evidence of pulmonary embolic disease.Centrilobular emphysematous change. There are bilateral pleuraleffusions with bibasilar atelectasis. There is scarring andbronchiectasis. There is focal pleural thickening in the right upperlobe laterally with adjacent parenchymal lung disease. This mayrepresent scarring however short-term follow-up, 3 to 6 months isrecommendedAssessment/PlanProblem List1. Back painStatus AcuteA&P- MRI of thoracic/lumbar spine reviewed. No evidence of discitis. MRIdemonstrated spinal stenosis and subacute fracture.- S/P course of antibiotic treatment for her UTI and PNA. WBC is within normalrange.- Continue PT/OT. Patient needs subacute rehab.- Case management is assisting on rehab arrangement.- Barrier for discharge: [facility] arrangement[facility]2. PneumoniaStatus AcuteA&P- S/P course of antibiotic.Pneumonia type: due to methicillin-resistant Staphylococcus aureus (MRSA)Laterality: unspecified laterality Lung location: unspecified part of lungQualified Code: J15.212 - Pneumonia due to Methicillin resistant Staphylococcusaureus3. COPD (chronic obstructive pulmonary disease)Status AcuteA&P- S/P steroid therapy. S/P course of antibiotic.- Currently patient is on 2-3L oxygen, baseline oxygen requirement.4. UTI (urinary tract infection)Status ResolvedA&P- S/P course of antibiotic.5. HLD (hyperlipidemia)Status ChronicA&P- Continue statin.6. Spinal stenosisStatus ChronicA&P- Chronic.- Continue current pain medication regimen.7. HypothyroidismStatus ChronicA&P-Continue Synthroid8. HTN (hypertension)Status ChronicA&P-Continue lisinopril, Imdur, metoprolol, Norvasc and hydralazine.Hypertension type: essential hypertension Qualified Code: I10 - Essential(primary) hypertension9. CKD (chronic kidney disease)Status ChronicA&P- Continue monitoring renal function.10. DiabetesStatus ChronicA&P-Continue Levemir 10 unit daily, continue insulin sliding scale.11. DepressionStatus ChronicA&P- Continue duloxetine. Continue Buspar.12. AnxietyStatus AcuteA&P- Continue BuSpar, [id number]. PVD (peripheral vascular disease)Status ChronicA&P-History of stent placement.-Continue Plavix, cuezdy81. DebilityStatus ChronicA&P-Patient needs subacute rehab.15. HypoalbuminemiaStatus ChronicA&P- Continue Ensure supplement.-Encourage oral intake as tolerated.16. Polysubstance abuseStatus ChronicA&P-Continue thiamine, folic acid and jyzomdqhbeur65. HypernatremiaStatus Pnconmbw76. Anemia of chronic diseaseStatus AcuteA&P-Status post 3 PRBC transfusions.- is maintaining.19. CandidiasisStatus AcuteA&P- Continue nystatin powder. Continue MIconazole cream.Resuscitation status Full codeDATE SIGNED: 06/11/20 Electronically SignedTIME SIGNED: [id number] [place] DENIS DO Name Value Range Interpretation Code Description Data Rosa rce(s) Supporting Document(s) ID Date Data Source [id number] 06/06/2020 06:37:00 AM EDT [facility] Name Value Range Interpretation Code Description Data Rosa rce(s) Supporting Document(s) FGLU 236 mg/dL 70-110 H [facility] ID Date Data Source [id number] 06/06/2020 06:41:00 AM EDT [facility] Name Value Range Interpretation Code Description Data Rosa rce(s) Supporting Document(s) MAGNESIUM 2.0 mg/dL 1.6-2.6 [facility] ID Date Data Source [id number] 06/06/2020 06:41:00 AM EDT [facility] Name Value Range Interpretation Code Description Data Rosa rce(s) Supporting Document(s) GLU 188 mg/dL 70-110 H [facility] Patients taking Sulfasalazine may have f alsely depressedGlucose levels. Patients taking Sulfapyridine may havefalsely elevated Glucose levels. Patients should be drawnfor Glucose before the initial administration of eitherdrug. BUN 35 mg/dL 7-23 H [facility] CRE 0.931 mg/dL 0.500-1.300 [facility] GFR > 60 mL/min [facility] CHLORIDE 108 mmol/L 99-110 [facility] NA 143 mmol/L 136-147 [facility] POTASSIUM 4.8 mmol/L 3.5-5.1 [facility] TCO2 27 mmol/L 20-33 [facility] ANION GAP 12.8 10.0-20.0 [facility] CA 8.5 mg/dL 8.3-10.7 [facility] ID Date Data Source [id number] 06/06/2020 05:47:00 AM [facility]T [facility] Name Value Range Interpretation Code Description Data Rosa rce(s) Supporting Document(s) WBC 8.26 x10E3/uL 4.0-10.5 [facility] RBC 3.32 x10E6/uL 4.20-5.40 [facility] Hemoglobin 10.0 g/dL 12.0-16.0 [facility] Hematocrit 31.6 % 37.0-47.0 [facility] MCV 95.2 fL 81.0-99.0 [facility] MCH 30.1 pg 27.0-31.0 [facility] MCHC 31.6 g/dL 32.7-35.6 [facility] RDW 17.4 % 11.5-14.0 H [facility] Platelet count 170 x10E3/uL 150-450 [facility] MPV 10.3 fl 6.9-9.5 H [facility] Neutrophils 78.0 % 34-64 H [facility] Lymphocytes 8.8 % 25-45 L [facility] Monocytes 10.2 % 1.7-10.6 [facility] Eosinophils 2.2 % 0.4-7.0 [facility] Basophils 0.4 % 0.1-2.0 [facility] Imm. Gran. 0.4 % 0.1-2.0 [facility] Abs. Neutro. 6.45 x10E3/uL 1.2-7.6 [facility]. Lymph. 0.73 x10E3/uL 1.0-3.5 [facility] Abs. Curry. 0.84 x10E3/uL 0.1-1.0 [facility] Abs. Eosin. 0.18 x10E3/uL 0.1-0.7 N [facility] Abs. Baso. 0.03 x10E3/uL 0.0-0.1 N [facility] Abs. Imm. Gran. 0.03 x10E3/uL 0.0-0.1 [facility] ANRBC% 0 % 0 N [facility] ID Date Data Source [id number] 06/06/2020 12:17:00 AM EDT [facility] Name Value Range Interpretation Code Description Data Rosa rce(s) Supporting Document(s) FGLU 208 mg/dL 70-110 H [facility] ID Date Data Source [id number] 06/05/2020 09:16:00 PM EDT [facility] Name Value Range Interpretation Code Description Data Rosa rce(s) Supporting Document(s) FGLU 127 mg/dL 70-110 H [facility] ID Date Data Source [id number] 06/05/2020 01:27:00 PM EDT [facility] Name Value Range Interpretation Code Description Data Rosa rce(s) Supporting Document(s) FGLU 151 mg/dL 70-110 H [facility] ID Date Data Source [id number] 06/05/2020 02:57:00 PM EDT [facility] Name Value Range Interpretation Code Description Data Rosa rce(s) Supporting Document(s) FGLU 61 mg/dL 70-110 L [facility] ID Date Data Source [id number] 06/05/2020 04:28:00 PM EDT [facility] Name Value Range Interpretation Code Description Data Rosa rce(s) Supporting Document(s) FGLU 62 mg/dL 70-110 L [facility] ID Date Data Source [id number] 06/05/2020 10:50:00 AM EDT [facility] [address] [id number] NOTEPATIENT NAME: ELA PONCE BATTENKEIKO PHYSICIAN: MICHAEL WANG MDAUTHOR: Shankar Denis DO. DATE: 05/18/20 MR#: [id number] NOTE DATE: 06/05/20 RM#: [id number] TIME: 112 : 45SubjectiveEvents Since Last EntryPatient seen and examined in the room today. Patient still complains of herchronic back pain. No fever or chill. Denies any worsening of the breathing.ObjectiveVital SignsVital Signs-24 HRS06/04 2100 2140 2200 0541Temp 98.2 97.7 97.5Pulse 70 76 75 82Resp 17 18 16B/P 127/64 128/72 134/65 164/63B/P MeanPulse Ox 81 92 92O2 Delivery Nasal cannula Nasal cannula Nasal cannulaO2 Flow Rate 3L 3L [id number] 4116 0728 0732TempPulse 81 81RespB/P 161/64 161/64 161/64 161/64B/P MeanPulse OxO2 DeliveryO2 Flow AgkwSuZ4Dcasma/OutputIntake/Output Summary 24 hours06/04 1900 06/05 0700Intake Total 840 240Output Total 502 900Balance 338 -660Intake, Oral 840 240 Output, Stool 2Output, Urine 500 900Current MedicationsInsulin Detemir (Levemir) 10 UNIT DAILY SUBCUTMiconazole (Monistat-7) 0 BID VAGAlbuterol Sulfate (Ventolin) 2 PUFFSQID INHFluconazole (Diflucan) 200 MG Q24H POMagnesium Oxide (Magox) 400 MG DAILY PONystatin (Mycostatin,Nilstat Powder) 1 GMTID TOPIsosorbide Mononitrate (Imdur) 120 MG DAILY POMetoprolol Tartrate (Lopressor) 75 MG BID POAmlodipine Besylate (Norvasc) 10 MG DAILY POPantoprazole Sodium (Protonix) 40 MG BID POSenna/Docusate Sodium (Senokot S) 2 TAB QHSPRN PRN POOxycodone HCl (Oxyir) 10 MG Q6HPRN PRN POHeparin Sodium (Porcine) (Heparin Sodium) 5,000 UNIT Q12H SUBCUTFerrous Sulfate (Iron) 325 MG BID POCyclobenzaprine HCl (Flexeril) 5 MG TID POHydralazine HCl (Apresoline) 50 MG TID POLevothyroxine Sodium (Synthroid) 75 MCG DAILY PONicotine (Nicoderm) 21 MG DAILY TOPInsulin Aspart (Humalog Insulin) Low dose sliding scaleAC MEAL SUBCUTAtorvastatin Calcium (Lipitor) 40 MG QHS POBuspirone HCl (Buspar) 5 MG BID POChlorhexidine Gluconate (Chlorhexidine Gluconate) 0 BID MMInsulin Aspart (Humalog Insulin) 0 QHS SUBCUTMiscellaneous (Patch off) 1 PAT QHS NAAlbuterol/Ipratropium (Duoneb) 3 ML Q6HWA PRN INHClopidogrel Bisulfate (Plavix) 75 MG DAILY PODuloxetine HCl (Cymbalta) 60 MG DAILY POFolic Acid (Folvite) 1 MG DAILY POLisinopril (Prinivil,Zestril) 40 MG DAILY POMultivitamins (Multivitamin) 1 TAB DAILY POSodium Chloride (Saline Flush Syr(10ML)) 10 ML Q12H IVThiamine HCl (VITAMIN B1) 100 MG DAILY POAcetaminophen (Tylenol) 650 MG Q6HPRN PRN POAcetaminophen (Tylenol) 650 MG Q6HPRN PRN POGlucose (Insta-Glucose) 15 GM DAILY NEEDED PRN POSodium Chloride (Saline Flush Syr(10ML)) 10 ML QIDPRN PRN IVExamGeneral Appearance no acute distress, afebrile, alert, awake, conversantHead atraumatic, normocephalicENT moist mucosal membranesNeck no JVDCardiovascular regular rate, no gallop, no rub, normal heart soundsRespiratory no distress, on oxygen, decreased breath sounds, ralesAbdomen soft, non-tender, no distention, normal bowel sounds, no guardingAbdominal quadrantsall normal bowel soundsUrinary no bladder distention, no flank painExtremities no cyanosis, no edema, normal pulses, Pedal pulses +1 bilaterallyfeet are warm and well perfused.Muscoskeletal full range of motion, normal inspectionNeurological alert, oriented x 3, normal cerebellar functio, normal speech, nomotor deficits, no sensory deficits, CNII- XXII grossly intact, no facialasymmetryLymphatic no lymphadenopathyPsych/Mental Status mood neutralResultsLaboratory DataRecent Labs-24 hours06/[id number] 3659 1658 0654ChemistryPOC Glucose (70 - 110 mg/dL) 183 H 54 L 79 261 HAssessment/PlanProblem List1. Back painStatus AcuteA&P- MRI of thoracic/lumbar spine reviewed. No evidence of discitis. MRIdemonstrated spinal stenosis and subacute fracture.- S/P course of antibiotic treatment for her UTI and PNA. WBC is within normalrange.- Continue PT/OT. Patient needs subacute rehab.- Case management is assisting on rehab arrangement.2. PneumoniaStatus AcuteA&P- S/P course of antibiotic.Pneumonia type: due to methicillin-resistant Staphylococcus aureus (MRSA)Laterality: unspecified laterality Lung location: unspecified part of lungQualified Code: J15.212 - Pneumonia due to Methicillin resistant Staphylococcusaureus3. COPD (chronic obstructive pulmonary disease)Status AcuteA&P- S/P steroid therapy. S/P course of antibiotic.- Currently patient is on 2-3L oxygen, baseline oxygen requirement.4. UTI (urinary tract infection)Status ResolvedA&P- S/P course of antibiotic.5. HLD (hyperlipidemia)Status ChronicA&P- Continue statin.6. Spinal stenosisStatus ChronicA&P- Chronic.- Continue current pain medication regimen.7. HypothyroidismStatus ChronicA&P-Continue Synthroid8. HTN (hypertension)Status ChronicA&P-Continue lisinopril, Imdur, metoprolol, Norvasc and hydralazine.Hypertension type: essential hypertension Qualified Code: I10 - Essential(primary) hypertension9. CKD (chronic kidney disease)Status ChronicA&P- Continue monitoring renal function.10. DiabetesStatus ChronicA&P-Continue Levemir 10 unit daily, continue insulin sliding scale.11. DepressionStatus ChronicA&P- Continue duloxetine. Continue Buspar.12. AnxietyStatus AcuteA&P- Continue BuSpar, eozidfrwsb60. PVD (peripheral vascular disease)Status ChronicA&P-History of stent placement.-Continue Plavix, vhltti42. DebilityStatus ChronicA&P-Patient needs subacute rehab.15. HypoalbuminemiaStatus ChronicA&P- Continue Ensure supplement.-Encourage oral intake as tolerated.16. Polysubstance abuseStatus ChronicA&P-Continue thiamine, folic acid and xaathewjnhvo69. HypernatremiaStatus Tdvoqxyv55. HyperglycemiaStatus Acute19. Anemia of chronic diseaseStatus AcuteA&P-Status post 3 PRBC transfusions.- HH is maintaining.20. CandidiasisStatus AcuteA&P-Continue nystatin powder.- MIconazole added.Additional NotesBarrier for discharge: Patient requires subacute rehab arrangement.Resuscitation status Full codeVTE ProphylaxisVTE Prophylaxis: Continue heparin.DATE SIGNED: 06/11/20 Electronically SignedTIME SIGNED: 2126 [place] CIRADO Name Value Range Interpretation Code Description Data Rosa rce(s) Supporting Document(s) ID Date Data Source [id number] 06/05/2020 06:57:00 AM EDT [facility] Name Value Range Interpretation Code Description Data Rosa rce(s) Supporting Document(s) FGLU 261 mg/dL 70-110 H [facility] ID Date Data Source [id number] 06/04/2020 07:07:00 PM EDT [facility] Name Value Range Interpretation Code Description Data Rosa rce(s) Supporting Document(s) FGLU 79 mg/dL 70-110 N [facility] ID Date Data Source [id number] 06/04/2020 08:39:00 PM EDT [facility] Name Value Range Interpretation Code Description Data Rosa rce(s) Supporting Document(s) FGLU 54 mg/dL 70-110 L [facility] ID Date Data Source [id number] 06/04/2020 12:11:00 PM EDT [address] [id number] NOTEPATIENT NAME: ELA PONCE PHYSICIAN: MICHAEL WANG, MDAUTHOR: Breezy GA, Zhang. DATE: 05/18/20 MR#: [id number] NOTE DATE: 06/04/20 RM#: [id number] TIME: 1220 : 45SubjectiveCC/Hx Present IllnessBack painEvents Since Last EntryCurrently alert oriented x3. Very poor historian, Patient comfortable,reported chronic back pain. Tolerating p.o, Denies chest pain. Afebrile. Allother review of s ystem negativeObjectiveVital SignsVital Signs-24 HRS06/03199190 4066 2104 2155 0619Temp 98.2 98.5 97.5Pulse 71 76 76 74Resp 16 16 16B/P 108/52 140/64 140/64 145/65B /P MeanPulse Ox 98O2 Delivery Nasal cannula Nasal cannulaO2 Flow Rate 3L [id number] 8825 0749 0753TempPulse 68 68RespB/P 148/68 148/68 148/68 148/68B/P MeanPulse OxO2 DeliveryO2 Flow AfvgOoE1Jnexke/OutputIntake/Output Summary 24 hours06/03 1900 06/04 0700Intake Total 840 420Output Total 500Balance 340 420Intake, Oral 840 420Number 1BowelMovementsNumber 2UnmeasuredVoidsOutput, Urine 500Patient 54 kgWeightCurrent MedicationsFluconazole (Diflucan) 200 MG Q24H POMagnesium Oxide (Magox) 400 MG DAILY PONystatin (Mycostatin,Nilstat Powder) 1 GMTID TOPInsulin Detemir (Levemir) 14 UNIT DAILY SUBCUTIsosorbide Mononitrate (Imdur) 120 MG DAILY POMetoprolol Tartrate (Lopressor) 75 MG BID POAmlodipine Besylate (Norvasc) 10 MG DAILY POPantoprazole Sodium (Protonix) 40 MG BID POSenna/Docusate Sodium (Senokot S) 2 TAB QHSPRN PRN POOxycodone HCl (Oxyir) 10 MG Q6HPRN PRN POHeparin Sodium (Porcine) (Heparin Sodium) 5,000 UNIT Q12H SUBCUTFerrous Sulfate (Iron) 325 MG BID POCyclobenzaprine HCl (Flexeril) 5 MG TID POHydralazine HCl (Apresoline) 50 MG TID POLevothyroxine Sodium (Synthroid) 75 MCG DAILY PONicotine (Nicoderm) 21 MG DAILY TOPInsulin Aspart (Humalog Insulin) Low dose sliding scaleAC MEAL SUBCUTAto rvastatin Calcium (Lipitor) 40 MG QHS POBuspirone HCl (Buspar) 5 MG BID POChlorhexidine Gluconate (Chlorhexidine Gluconate) 0 BID MMInsulin Aspart (Humalog Insulin) 0 QHS SUBCUTMiscellaneous (Patch off) 1 PAT QHS NAAlbuterol/Ipratropium (Duoneb) 3 ML Q6HWA PRN INHClopidogrel Bisulfate (Plavix) 75 MG DAILY PODuloxetine HCl (Cymbalta) 60 MG DAILY POFolic Acid (Folvite) 1 MG DAILY POLisinopril (Prinivil,Zestril) 40 MG DAILY POMultivitamins (Multivitamin) 1 TAB DAILY POSodium Chloride (Saline Flush Syr(10ML)) 10 ML Q12H IVThiamine HCl (VITAMIN B1) 100 MG DAILY POAcetaminophen (Tylenol) 650 MG Q6HPRN PRN POAcetaminophen (Tylenol) 650 MG Q6HPRN PRN POGlucose (Insta-Glucose) 15 GM DAILY NEEDED PRN POSodium Chloride (Saline Flush Syr(10ML)) 10 ML QIDPRN PRN IVExamGeneral Appearance no acute distress, afebrile, alert, awake, conversantHead atraumatic, normocephalicENT moist mucosal membranesEye Assess ementR,L,Bilateral bilateralAssessment: EOMINeck no JVDCardiovascular regular rate, no gallop, no rub, normal heart soundsRespiratory no distress, on oxygen, decreased breath sounds, ralesAbdomen soft, non-tender, no distention, normal bowel sounds, no guardingAbdominal quadrantsall normal bowel soundsUrinary no bladder distention, no flank painExtremities no cyanosis, no edema, normal pulses, ecchymosis, Pedal pulses +1bilaterally feet are warm and well perfused.Muscoskeletal full range of motion, normal inspectionNeurological alert, oriented x 3, normal cerebellar functio, normal speech, nomotor deficits, no sensory deficits, CNII-XXII grossly intact, no facialasymmetrySkin AssessmentSkin Redness bilateral groinLymphatic no lymphadenopathyPsych/Mental Status mood neutral, no hallucinationsResultsLaboratory DataRecent Labs-24 hours06/03087346 7847 0335 0532ChemistrySodium (136 - 147 mmol/L) 144Potassium (3.5 - 5.1 mmol/L) 4.7Chloride (99 - 110 mmol/L) 111 HSerum Bicarbonate (20 - 33 mmol/L) 30Anion Gap (10.0 - 20.0) 7.7 LBUN (7 - 23 mg/dL) 38 HCreatinine (0.500 - 1.300 mg/dL) 1.100Estimated GFR/1.73 m2 (mL/min) 52Glucose (70 - 110 mg/dL) 132 HPOC Glucose (70 - 110 mg/dL) 135 H 125 H 169 HCalcium (8.3 - 10.7 mg/dL) 8.2 LMagnesium (1.6 - 2.6 mg/dL) 1.8HematologyWBC (4.0 - 10.5 x10E3/uL) 8.08RBC (4.20 - 5.40 x10E6/uL) 3.67 LHgb (12.0 - 16.0 g/dL) 11.0 LHct (37.0 - 47.0 %) 34.5 LMCV (81.0 - 99.0 fL) 94.0MCH (27.0 - 31.0 pg) 30.0MCHC (32.7 - 35.6 g/dL) 31.9 LRDW (11.5 - 14.0 %) 17.6 HPlt Count (150 - 450 x10E3/uL) 174MPV (6.9 - 9.5 fl) 10.0 HImmature Gran % (Auto) (0.1 - 2.0 %) 0.6Neut % (Auto) (34 - 64 %) 81.2 HLymph % (Auto) (25 - 45 %) 7.8 LMono % (Auto) (1.7 - 10.6 %) 8.0Eos % (Auto) (0.4 - 7.0 %) 2.2Baso % (Auto) (0.1 - 2.0 %) 0.2Abs Immat Gran (auto) (0.0 - 0.1 x10E3/uL) 0.05Absolute Neuts (auto) (1.2 - 7.6 x10E3/uL) 6.55Absolute Lymphs (auto) (1.0 - 3.5 x10E3/uL) 0.63 LAbsolute Monos (auto) (0.1 - 1.0 x10E3/uL) 0.65Absolute Eos (auto) (0.1 - 0.7 x10E3/uL) 0.18Absolute Basos (auto) (0.0 - 0.1 x10E3/uL) 0.02Nucleated RBC % (auto) (0 %) 0Results Reviewed labs reviewedAssessment/PlanProblem List1. Back painStatus AcuteA&PDegenerative disc disease, spinal stenosis, T1-T2 subacute fracturePatient complained of back pain.MRI appreciated with no evidence of discitis, likely worsening pain due tosubcu vertebral body fractureblood cultures negative-Pain management.2. PneumoniaStatus AcuteA&PCompleted antibioticPneumonia type: due to methicillin-resistant Staphylococcus aureus (MRSA)Laterality: unspecified laterality Lung location: unspecified part of lung Qualified Code: J15.212 - Pneumonia due to Methicillin resistant Staphylococcusaureus3. COPD (chronic obstructive pulmonary disease)Status AcuteA&Mendoza 2.5 L oxygen at baseline, DuoNeb as needed, off steroid, and completedantibiotics4. UTI (urinary tract infection)Status ResolvedA&PTreated with Zosyn py-Nfechn-fa urine culture.5. HLD (hyperlipidemia)Status ChronicA&PContinue statin6. Spinal stenosisStatus ChronicA&PChronic history of spinal stenosis continue with pain management.7. DepressionStatus ChronicA&PContinue with duloxetine., BuSpar8. HypothyroidismStatus ChronicA&P-C ontinue with levothyroxine.9. HTN (hypertension)Status ChronicA&P-Continue with lisinopril and increase hydralazine 50 mg p.o. 3 times daily,Imdur p.o. 120md daily, added metoprolol 75 mg p.o. twice daily, Norvasc 10 mgp.o. dailyblood pressure control-Monitor blood pressure.Hypertension type: essential hypertension Qualified Code: I10 - Essential(primary) eksdzvsnkbex30. CKD (chronic kidney disease)Status ChronicA&P-Monitor renal function.11. DiabetesStatus ChronicA&PComplicated with hypoglycemia and hyperglycemiaIncreased Levemir 14 units daily, continue NovoLog via protocol, closemonitoring, taper off adqjnqqk99. AnxietyStatus AcuteA&PContinue current fkpxifdvaf10. PVD (peripheral vascular disease)Status ChronicA&PHistory of stent placement.Continue with Plavix, statin-Continue to monitor.14. DebilityStatus ChronicA&P-Supportive care-Consider PT/OT when patient is more alert.15. HypoalbuminemiaStatus ChronicA&PEncourage p.o. intake. Nutrition supplementation.Ensure p.o. 3 times daily.16. Polysubstance abuseStatus ChronicA&PThiamine, folic acid, multivitamin, no signs of dhiudmfqqh85. HypernatremiaStatus ResolvedA&MDwmgkjeqf97. HyperglycemiaStatus AcuteA&a mp;PMonitor, off . T1-T2 SUBACUTE FRACTUREStatus AcuteA&PPT, OT, fall precaution, pain medication as iqrkrum06. Anemia of chronic diseaseStatus AcuteA&PWorsening anemia, no signs of bleeding, transfuse 3unit PRBC with appropriateresponse. Will monitor, further work-up as yjjtshrfal99. CandidiasisStatus AcuteA&PTreatment as above ordered, wound careAdditional Acbol08-zfxr-doh female patient underlying medical history of COPD O2 dependent,spinal stenosis, depression, dyslipidemia, type 2 diabetes, nicotine addiction,anxiety, hypothyroidism, debility, CKD, peripheral vascular dise ase,hypoalbuminemia, polysubstance abuse, initially admitted [facility] for right upper lobe pneumonia, sepsis, deconditioning with frequentfall, transferred given complains of back pain and worsening leukocytosis.DVT prophylaxis Heparin subcuDisposition short-term rehabResuscitation status Full codePlan discussed with patientCase discussed with case management specialist, nursing staffVTE ProphylaxisVTE Prophylaxis: Heparin subcu.DATE SIGNED: 06/04/20 Electronically SignedTIME SIGNED: 1220 SAAD FRIED MD Name Value Range Interpretation Code Description Data Rosa rce(s) Supporting Document(s) ID Date Data Source [id number] 06/04/2020 12:48:[facility] Name Value Range Interpretation Code Description Data Rosa rce(s) Supporting Document(s) FGLU 183 mg/dL 70-110 H [facility] ID Date Data Source [id number] 06/04/2020 09:13:00 AM EDT [facility] Name Value Range Interpretation Code Description Data Rosa rce(s) Supporting Document(s) FGLU 169 mg/dL 70-110 H [facility] ID Date Data Source [id number] 06/04/2020 06:16:00 AM EDT [facility] Name Value Range Interpretation Code Description Data Rosa rce(s) Supporting Document(s) WBC 8.08 x10E3/uL 4.0-10.5 N [facility] RBC 3.67 x10E6/uL 4.20-5.40 L [facility] Hemoglobin 11.0 g/dL 12.0-16.0 [facility] Hematocrit 34.5 % 37.0-47.0 L [facility] MCV 94.0 fL 81.0-99.0 N [facility] MCH 30.0 pg 27.0-31.0 N [facility] MCHC 31.9 g/dL 32.7-35.6 L [facility] RDW 17.6 % 11.5-14.0 H [facility] Platelet count 174 x10E3/uL 150-450 [facility] MPV 10.0 fl 6.9-9.5 H [facility] Neutrophils 81.2 % 34-64 [facility] Lymphocytes 7.8 % 25-45 L [facility] Monocytes 8.0 % 1.7-10.6 N [facility] Eosinophils 2.2 % 0.4-7.0 N [facility] Basophils 0.2 % 0.1-2.0 N [facility] Imm. Gran. 0.6 % 0.1-2.0 N [facility] Abs. Neutro. 6.55 x10E3/uL 1.2-7.6 [facility] Abs. Lymph. 0.63 x10E3/uL 1.0-3.5 [facility] Abs. Curry. 0.65 x10E3/uL 0.1-1.0 [facility] Abs. Eosin. 0.18 x10E3/uL 0.1-0.7 [facility] Abs. Baso. 0.02 x10E3/uL 0.0-0.1 [facility] Abs. Imm. Gran. 0.05 x10E3/uL 0.0-0.1 [facility] spital ANRBC% 0 % 0 N [facility] ID Date Data Source [id number] 06/04/2020 05:26:00 AM EDT [facility] Name Value Range Interpretation Code Description Data Rosa rce(s) Supporting Document(s) MAGNESIUM 1.8 mg/dL 1.6-2.6 N [facility] ID Date Data Source [id number] 06/04/2020 05:26:00 AM EDT [facility] jer Name Value Range Interpretation Code Description Data Rosa rce(s) Supporting Document(s) GLU 132 mg/dL 70-110 H [facility] Patients taking Sulfasalazine may have f alsely depressedGlucose levels. Patients taking Sulfapyridine may havefalsely elevated Glucose levels. Patients should be drawnfor Glucose before the initial administration of eitherdrug. BUN 38 mg/dL 7-23 H [facility] CRE 1.100 mg/dL 0.500-1.300 [facility] GFR 52 mL/min [facility] CHLORIDE 111 mmol/L 99-110 H [facility] NA 144 mmol/L 136-147 [facility] POTASSIUM 4.7 mmol/L 3.5-5.1 [facility] TCO2 30 mmol/L 20-33 [facility] ANION GAP 7.7 10.0-20.0 L [facility] CA 8.2 mg/dL 8.3-10.7 L [facility] ID Date Data Source [id number] 06/04/2020 04:52:00 AM EDT [facility] jer Name Value Range Interpretation Code Description Data Rosa rce(s) Supporting Document(s) FGLU 125 mg/dL 70-110 H [facility] ID Date Data Source [id number] 06/03/2020 07:50:00 PM EDT [facility] jer Name Value Range Interpretation Code Description Data Rosa rce(s) Supporting Document(s) FGLU 135 mg/dL 70-110 H [facility] ID Date Data Source [id number] 06/03/2020 01:02:00 PM EDT [facility] jer Name Value Range Interpretation Code Description Data Rosa rce(s) Supporting Document(s) FGLU 223 mg/dL 70-110 H [facility] ID Date Data Source [id number] 06/03/2020 08:10:00 AM EDT [address] [id number] NOTEPATIENT NAME: ELA PONCE BATTENKEIKO PHYSICIAN: MICHAEL WANG, MDAUTHOR: Breezy GA, Zhang. DATE: 05/18/20 MR#: [id number] NOTE DATE: 06/03/20 RM#: [id number] TIME: 818 : 45SubjectiveCC/Hx Present IllnessBack painEvents Since Last EntryCurrently alert oriented x3. Very poor historian. On chronic oxygen. Patientcomfortable, reported chronic back pain, hip pain. Tolerating p.o,Denies chestpain. Afebrile. All other review of system negativeObjectiveVital SignsVital Signs-24 HRS06/02850 1115 1334 2111 2126Temp 98.2 97.4Pulse 70 62 74 76Resp 17 18B/P 154/68 148/68 145/68 145/68B/P MeanPulse Ox 98 94O2 Delivery Nasal cannula Nasal cannula Nasal cannulaO2 Flow Rate 3L 3L 7LLcI637/526245Foti 97.9Pulse 77Resp 18B/P 166/74B/P MeanPulse Ox 94O2 Delivery Nasal cannulaO2 Flow Rate 5XHpZ3Wyztrz/OutputIntake/Output Summary 24 hours06/02 1900 06/03 0700Intake Total 720 720Output Total 400Balance 720 320Intake, Oral 720 720Number 1BowelMovementsNumber 3 1UnmeasuredVoidsOutput, Urine 400Current MedicationsInsulin Detemir (Levemir) 14 UNIT DAILY SUBCUTIsosorbide Mononitrate (Imdur) 120 MG DAILY POMetoprolol Tartrate (Lopressor) 75 MG BID POAmlodipine Besylate (Norvasc) 10 MG DAILY POPantoprazole Sodium (Protonix) 40 MG BID POSenna/Docusate Sodium (Senokot S) 2 TAB QHSPRN PRN POOxycodone HCl (Oxyir) 10 MG Q6HPRN PRN POHeparin Sodium (Porcine) (Heparin Sodium) 5,000 UNIT Q12H SUBCUTFerrous Sulfate (Iron) 325 MG BID POCyclobenzaprine HCl (Flexeril) 5 MG TID POHydralazine HCl (Apresoline) 50 MG TID POLevothyroxine Sodium (Synthroid) 75 MCG DAILY PONicotine (Nicoderm) 21 MG DAILY TOPInsulin Aspart (Humalog Insulin) Low dose sliding scaleAC MEAL SUBCUTAtorvastatin Calcium (Lipitor) 40 MG QHS POBuspirone HCl (Buspar) 5 MG BID POChlorhexidine Gluconate (Chlorhexidine Gluconate) 0 BID MMInsulin Aspart (Humalog Insulin) 0 QHS SUBCUTMiscellaneous (Patch off) 1 PAT QHS NAAlbuterol/Ipratropium (Duoneb) 3 ML Q6HWA PRN INHClopidogrel Bisulfate (Plavix) 75 MG DAILY PODuloxetine HCl (Cymbalta) 60 MG DAILY POFolic Acid (Folvite) 1 MG DAILY POLisinopril (Prinivil,Zestril) 40 MG DAILY POMultivitamins (Multivitamin) 1 TAB DAILY POSodium Chloride (Saline Flush Syr(10ML)) 10 ML Q12H IVThiamine HCl (VITAMIN B1) 100 MG DAILY POAcetaminophen (Tylenol) 650 MG Q6HPRN PRN POAcetaminophen (Tylenol) 650 MG Q6HPRN PRN POGlucose (Insta-Glucose) 15 GM DAILY NEEDED PRN POSodium Chlorid e (Saline Flush Syr(10ML)) 10 ML QIDPRN PRN IVExamGeneral Appearance no acute distress, afebrile, alert, awake, conversantHead atraumatic, normocephalicENT moist mucosal membranesEye AssessementR,L,Bilateral bilateralAssessment: EOMINeck no JVDCardiovascular regular rate, no gallop, no rub, normal heart soundsRespiratory clear to auscultation, no distress, on oxygen, decreased breathsoundsAbdomen soft, non-tender, no distention, normal bowel sounds, no guardingAbdominal quadrantsall normal bowel soundsUrinary no bladder distention, no flank painExtremities no cyanosis, no edema, normal pulses, ecchymosis, Pedal pulses +1bilaterally feet are warm and well perfused.Muscoskeletal full range of motion, normal inspectionNeurological alert, oriented x 3, normal cerebellar functio, normal speech, nomotor deficits, no sensory deficits, CNII-XXII grossly intact, no facialasymmetrySkin AssessmentSkin dry, intact, Ecchymosis resolvedLymphatic no lymphadenopathyPsych/Mental Status mood neutral, no hallu cinationsResultsLaboratory DataRecent Labs-24 hours06/02121 1623 2101 0608ChemistryPOC Glucose (70 - 110 mg/dL) 127 H 344 H 309 H 315 HResults Reviewed labs reviewedAssessment/PlanProblem List1. Back painStatus AcuteA&PDegenerative disc disease, spinal stenosis, T1-T2 subacute fracturePatient complained of back pain.MRI appreciated with no evidence of discitis, likely worsening pain due tosubcu vertebral body fractureblood cultures negative-Pain management.2. PneumoniaStatus AcuteA&PCompleted antibioticPneumonia type: due to methicillin-resistant Sta phylococcus aureus (MRSA)Laterality: unspecified laterality Lung location: unspecified part of lungQualified Code: J15.212 - Pneumonia due to Methicillin resistant Staphylococcusaureus3. COPD (chronic obstructive pulmonary disease)Status AcuteA&Mendoza 2.5 L oxygen at baseline, DuoNeb as needed, off steroid, and completedantibiotics4. UTI (urinary tract infection)Status ResolvedA&PTreated with Zosyn bd-Zdjsnt-wu urine culture.5. HLD (hyperlipidemia)Status ChronicA&PContinue statin6. Spinal stenosisStatus ChronicA&PChronic history of spinal stenosis continue with pain management.7. DepressionStatus ChronicA&PContinue with duloxetine., BuSpar8. HypothyroidismStatus ChronicA&P-Continue with levothyroxine.9. HTN (hypertension)Status ChronicA&P-Continue with lisinopril and increase hydralazine 50 mg p.o. 3 times daily,Imdur p.o. 120md daily, added metoprolol 75 mg p.o. twice daily, Norvasc 10 mgp.o. dailyblood pressure control-Monitor blood pressure.Hypertension type: essential hypertension Qualified Code: I10 - Essential(primary) tjimwkhwfzql48. CKD (chronic kidney disease)Status ChronicA&P-Monitor renal function.11. DiabetesStatus ChronicA&PComplicated with hypoglycemia and hyperglycemiaIncreased Levemir 14 units daily, continue NovoLog via protocol, closemonitoring, taper off ziqtfruq50. AnxietyStatus AcuteA&PContinue current tijgpegygf66. PVD (peripheral vascular disease)Status ChronicA&PHistory of stent placement.Continue with Plavix, statin-Continue to monitor.14. DebilityStatus ChronicA&P-Supportive care-Consider PT/OT when patient is more alert.15. HypoalbuminemiaStatus ChronicA&PEncourage p.o. intake. Nutrition supplementation.Ensure p.o. 3 times daily.16. Polysubstance abuseStatus ChronicA&PThiamine, folic acid, multivitamin, no signs of zmfsryhtoh65. HypernatremiaStatus ResolvedA&DBjphzoful98. HyperglycemiaStatus AcuteA&PMonitor, taper . T1-T2 SUBACUTE FRACTUREStatus AcuteA&PPT, OT, fall precaution, pain medication as rmwpkak48. Anemia of chronic diseaseStatus AcuteA&PWorsening anemia, no signs of bleeding, transfuse 3unit PRBC with appropriateresponse. Will monitor, further work-up as outpatientAdditional Sguhh65-utwn-icf female patient underlying medical history of COPD O2 dependent,spinal stenosis, depression, dyslipidemia, type 2 diabetes, nicotine addiction,anxiety, hypothyroidism, debility, CKD, peripheral vascular disease,hypoalbuminemia, polysubstance abuse, [facility] for [facility] lobe [facility], sepsis, deconditioning with frequentfall, transferred given complains of back pain and worsening leukocytosisDVT prophylaxis Heparin subcuDisposition short-term rehabResuscitation status Full codePlan discussed with patientCase discussed with case management specialist, nursing staffVTE ProphylaxisVTE Prophylaxis: Heparin subcu.DATE SIGNED: 06/03/20 Electronically SignedTIME SIGNED: 817 SAAD FRIED MD Name Value Range Interpretation Code Description Data Rosa rce(s) Supporting Document(s) ID Date Data Source [id number] 06/03/2020 06:12:00 AM EDT [facility] Name Value Range Interpretation Code Description Data Rosa rce(s) Supporting Document(s) FGLU 315 mg/dL 70-110 H [facility] ID Date Data Source [id number] 06/02/2020 09:04:00 PM EDT [facility] Name Value Range Interpretation Code Description Data Rosa rce(s) Supporting Document(s) FGLU 309 mg/dL 70-110 H [facility] ID Date Data Source [id number] 06/02/2020 06:12:00 PM EDT [facility] Name Value Range Interpretation Code Description Data Rosa rce(s) Supporting Document(s) FGLU 344 mg/dL 70-110 H [facility] ID Date Data Source [id number] 06/02/2020 03:29:00 PM EDT [facility] [address] [id number] NOTEPATIENT NAME: ELA PONCE BATTENKEIKO PHYSICIAN: MICHAEL WANG MDAUTHOR: Breezy [place], Zhang. DATE: 05/18/20 MR#: [id number] NOTE DATE: 06/02/20 RM#: [id number] TIME: 1539 : 45SubjectiveCC/Hx Present IllnessBack painEvents Since Last EntryCurrently alert oriented x3. Very poor historian. On chronic oxygen. Patientcomfortable, reported chronic back pain. Following command, tolerating p.o,Denies chest pain. Afebrile. All other review of system negativeObjectiveVital SignsVital Signs-24 HRS06/015Temp 98.2 97.9Pulse 70 79 79Resp 19 18B/P 102/60 174/81 174/80B/P MeanPulse Ox 95 94O2 Delivery Nasal cannula Nasal cannula Nasal cannulaO2 Flow Rate 3L 3L 7LCjU41906/02 0748 0749 0749 0850Temp 97.7Pulse 76 76Resp 20B/P 170/79 170/79 170/79 170/79B/P MeanPulse Ox 93O2 Delivery Nasal cannula Nasal cannulaO2 Flow Rate 3L 4WHgA76806/02115 1334Temp 98.2Pulse 70 62Resp 17B/P 154/68 148/68B/P MeanPulse Ox 98O2 Delivery Nasal cannulaO2 Flow Rate 2ZZgA2Uitutf/OutputIntake/Output Summary 24 hours06/01 1900 06/02 0700Intake Total 920 500Output Total 600Balance 920 -100Intake, Oral 920 500Number 1 1BowelMovementsNumber 4UnmeasuredVoidsOutput, Urine 600Patient 54.1 kgWeightCurrent MedicationsIsosorbide Mononitrate (Imdur) 120 MG DAILY POMetoprolol Tartrate (Lopressor) 75 MG BID POAmlodipine Besylate (Norvasc) 10 MG DAILY POInsulin Detemir (Levemir) 10 UNIT DAILY SUBCUTPantoprazole Sodium (Protonix) 40 MG BID POPrednisone (Orasone) 10 MG DAILY POSenna/Docusate Sodium (Senokot S) 2 TAB QHSPRN PRN POOxy codone HCl (Oxyir) 10 MG Q6HPRN PRN POHeparin Sodium (Porcine) (Heparin Sodium) 5,000 UNIT Q12H SUBCUTFerrous Sulfate (Iron) 325 MG BID POCyclobenzaprine HCl (Flexeril) 5 MG TID POHydralazine HCl (Apresoline) 50 MG TID POLevothyroxine Sodium (Synthroid) 75 MCG DAILY PONicotine (Nicoderm) 21 MG DAILY TOPInsulin Aspart (Humalog Insulin) Low dose sliding scaleAC MEAL SUBCUTAtorvastatin Calcium (Lipitor) 40 MG QHS POBuspirone HCl (Buspar) 5 MG BID POChlorhexidine Gluconate (Chlorhexidine Gluconate) 0 BID MMInsulin Aspart (Humalog Insulin) 0 QHS SUBCUTMiscellaneous (Patch off) 1 PAT QHS NAAlbuterol/Ipratropium (Duoneb) 3 ML Q6HWA PRN INHClopidogrel Bisulfate (Plavix) 75 MG DAILY PODuloxetine HCl (Cymbalta) 60 MG DAILY POFolic Acid (Folvite) 1 MG DAILY POLisinopril (Prinivil,Zestril) 40 MG DAILY POMultivitamins (Multivitamin) 1 TAB DAILY POSodium Chloride (Saline Flush Syr(10ML)) 10 ML Q12H IVThiamine HCl (VITAMIN B1) 100 MG DAILY POHeparin Sodium (Porcine) (Heparin syringe) 100 UNIT Q12H IVAcetaminophen (Tylenol) 650 MG Q6HPRN PRN POAcetaminophen (Tylenol) 650 MG Q6HPRN PRN POGlucose (Insta-Glucose) 15 GM DAILY NEEDED PRN POSodium Chloride (Saline Flush Syr(10ML)) 10 ML QIDPRN PRN IVExamGeneral Appearance no acute distress, afebrile, alert, awake, conversantHead atraumatic, normocephalicENT moist mucosal membranesEye AssessementR,L,Bilateral bilateralAssessment: EOMINeck no JVDCardiovascular regular rate, no gallop, no rub, normal heart rosa ndsRespiratory clear to auscultation, no distress, on oxygen, decreased breathsoundsAbdomen soft, non-tender, no distention, normal bowel sounds, no guardingAbdominal quadrantsall normal bowel soundsUrinary no bladder distention, no flank painExtremities no cyanosis, no edema, normal pulses, ecchymosis, Pedal pulses +1bilaterally feet are warm and well perfused.Muscoskeletal full range of motion, normal inspectionNeurological alert, oriented x 3, normal cerebellar functio, normal speech, nomotor deficits, no sensory deficits, CNII-XXII grossly intact, no facialasymmetrySkin AssessmentSkin dry, intactLymphatic no lymphadenopathyPsych/Mental Status mood neutral, no hallucinationsResultsLaboratory DataRecent Labs-24 hours06/01345655 1859 2205 6466 1121ChemistryPOC Glucose (70 - 110 mg/dL) 191 H 181 H 237 H 127 HHematologyHgb (12.0 - 16.0 g/dL) 10.6 LResults Reviewed labs reviewedAssessment/PlanProblem List1. Back painStatus AcuteA&PDegenerative disc disease, spinal stenosis, T1-T2 subacute fracturePatient complained of back pain.MRI appreciated with no evidence of discitis, likely worsening pain due tosubcu vertebral body fractureblood cultures negative-Pain management.2. PneumoniaStatus AcuteA&PCompleted antibioticPneumonia type: due to methicillin- resistant Staphylococcus aureus (MRSA)Laterality: unspecified laterality Lung location: unspecified part of lungQualified Code: J15.212 - Pneumonia due to Methicillin resistant Staphylococcusaureus3. COPD (chronic obstructive pulmonary disease)Status AcuteA&Mendoza 2.5 L oxygen at baseline, DuoNeb as needed, taper steroid on prednisone 10mg daily, and completed antibiotics4. UTI (urinary tract infection)Status Resolved5. HLD (hyperlipidemia)Status ChronicA&PContinue statin6. Spinal stenosisStatus ChronicA&PChronic history of spinal stenosis continue with pain management.7. DepressionStatus ChronicA&PContinue with duloxetine., BuSpar8. HypothyroidismStatus ChronicA&P-Continue with levothyroxine.9. HTN (hypertension)Status ChronicA&P-Continue with lisinopril and increase hydralazine 50 mg p.o. 3 times daily,Imdur p.o. 120md daily, added metoprolol 75 mg p.o. twice daily, Norvasc 10 mgp.o. dailyblood pressure control-Monitor blood pressure.Hypertension type: essential hypertension Qualified Code: I10 - Essential(primary) gbyrswohxxkn56. CKD (chronic kidney disease)Status ChronicA&P-Monitor renal function.11. DiabetesStatus ChronicA&PComplicated with hypoglycemia and hyperglycemiaLevemir 10 units daily, continue NovoLog via protocol, close monitoring, ksqbhmoxafuof70. AnxietyStatus AcuteA&PContinue current rryqitpwdv89. PVD (peripheral vascular disease)Status ChronicA&PHistory of stent placement.Continue with Plavix, statin-Continue to monitor.14. DebilityStatus ChronicA&P-Supportive care-Consider PT/OT when patient is more alert.15. HypoalbuminemiaStatus ChronicA&PEncourage p.o. intake. Nutrition supplementation.Ensure p.o. 3 times daily.16. Polysubstance abuseStatus ChronicA&PThiamine, folic acid, multivitamin, no signs of xtoalwfvft34. HypernatremiaStatus ResolvedA&UGiokhysii26. HyperglycemiaStatus AcuteA&PMonitor, taper czsfwyc32. T1-T2 SUBACUTE FRACTUREStatus AcuteA&PPT, OT, fall precaution, pain medication as jyvnkjn82. Anemia of chronic diseaseStatus AcuteA&PWorsening anemia, no signs of bleeding, transfuse 3unit PRBC with appropriateresponse. Will monitor, further work-up as outpatientAdditional Wwfzz94-hodh-isy female patient underlying medical history of COPD O2 de pendent,spinal stenosis, depression, dyslipidemia, type 2 diabetes, nicotine addiction,anxiety, hypothyroidism, debility, CKD, peripheral vascular disease,hypoalbuminemia, polysubstance abuse, initially admitted [facility] for right upper lobe pneumonia, sepsis, deconditioning with frequentfall, transferred given complains of back pain and worsening leukocytosisDVT prophylaxis Heparin subcuDisposition short-term rehabResuscitation status Full codePlan discussed with patientCase discussed with case management specialist, nursing staffVTE ProphylaxisVTE Prophylaxis: Heparin subcu.DATE SIGNED: 06/02/20 Electronically SignedTIME SIGNED: 1539 SAAD FRIED MD Name Value Range Interpretation Code Description Data Rosa rce(s) Supporting Document(s) ID Date Data Source [id number] 06/02/2020 01:01:00 PM EDT [facility] Name Value Range Interpretation Code Description Data Rosa rce(s) Supporting Document(s) FGLU 127 mg/dL 70-110 H [facility] ID Date Data Source [id number] 06/02/2020 07:28:[facility] Name Value Range Interpretation Code Description Data Rosa rce(s) Supporting Document(s) FGLU 237 mg/dL 70-110 H [facility] ID Date Data Source [id number] 06/02/2020 05:41:00 AM [facility] Name Value Range Interpretation Code Description Data Rosa rce(s) Supporting Document(s) Hemoglobin 10.6 g/dL 12.0-16.0 L [facility] ID Date Data Source [id number] 06/01/2020 11:28:00 PM [facility] Name Value Range Interpretation Code Description Data Rosa rce(s) Supporting Document(s) FGLU 181 mg/dL 70-110 H [facility] ID Date Data Source [id number] 06/01/2020 08:53:00 PM EDT [facility] Name Value Range Interpretation Code Description Data Rosa rce(s) Supporting Document(s) FGLU 191 mg/dL 70-110 H [facility] ID Date Data Source [id number] 06/01/2020 03:15:00 PM EDT [facility] [address] [id number] NOTEPATIENT NAME: ELA PONCE PHYSICIAN: MICHAEL WANG MDAUTHOR: Selma Caballero. DATE: 05/18/20 MR#: [id number] NOTE DATE: 06/01/20 RM#: [id number] TIME: 1519 : 45SubjectiveEvents Since Last EntryPatient seen and examined today. Chart reviewed. She did not pass a PT homesafety evaluation 05/30/2020 and is unsafe for discharge to home. PT feels sheneeds short term rehab. Patient was anemic yesterday and was transfused 2units of packed red blood cells. Anemia work-up shows chronic anemia and isnot consistent with acute blood loss. Hemoglobin will be repeated in a.m.Patient is feeling better today. Awaiting a rehab bed.Review of SystemsSystems reviewed and negative Constitutional, Integumentary, Eyes, ENT,Respiratory, Cardiovascular, GI, , Musculoskeletal, Aldo, Endocrine,Neurology, Psych, Allergy/ImmunologyObjectiveVital SignsVital Signs-24 HRS05/31 2150 2150Temp 97.1 98.2Pulse 71 74 76Resp 18 17B/P 146/83 160/66 159/68B/P MeanPulse Ox 93 93O2 Delivery Nasal cannula Nasal cannula Nasal cannulaO2 Flow Rate 3 l 3L [id number] 0625 0736 0737 0737Temp 98.1Pulse 75 75Resp 19B/P 173/74 180/90 180/90 180/90 180/90B/P MeanPulse Ox 93 94O2 Delivery Nasal cannula Nasal cannulaO2 Flow Rate 3L 6AKsR95906/01 0934TempPulse 77RespB/P 180/79B/P MeanPulse OxO2 Delivery Nasal cannulaO2 Flow Rate 3THiA7Gokhit/OutputIntake/Output Summary 24 hours05/31 1900 06/01 0700Intake Total 1200 820Output Total 1350Balance 1200 -530Intake, Blood 360ProductIntake, IV 300Intake, Oral 840 520Number 1BowelMovementsNumber 3UnmeasuredVoidsOutput, Urine 1350Current MedicationsMetoprolol Tartrate (Lopressor) 75 MG BID POAmlodipine Besylate (Norvasc) 10 MG DAILY POInsulin Detemir (Levemir) 10 UNIT DAILY SUBCUTPantoprazole Sodium (Protonix) 40 MG BID POPrednisone (Orasone) 10 MG DAILY POSenna/Docusate Sodium (Senokot S) 2 TAB QHSPRN PRN POOxycodone HCl (Oxyir) 10 MG Q6HPRN PRN POHeparin Sodium (Porcine) (Heparin Sodium) 5,000 UNIT Q12H SUBCUTFerrous Sulfate (Iron) 325 MG BID POIsosorbide Mononitrate (Imdur) 90 MG DAILY POCyclobenzaprine HCl (Flexeril) 5 MG TID POHydralazine HCl (Apresoline) 50 MG TID POLevothyroxine Sodium (Synthroid) 75 MCG DAILY PONicotine (Nicoderm) 21 MG DAILY TOPInsulin Aspart (Humalog Insulin) Low dose sliding scaleAC MEAL SUBCUTAtorvastatin Calcium (Lipitor) 40 MG QHS POBuspirone HCl (Buspar) 5 MG BID POChlorhexidine Gluconate (Chlorhexidine Gluconate) 0 BID MMInsulin Aspart (Humalog Insulin) 0 QHS SUBCUTMiscellaneous (Patch off) 1 PAT QHS NAAlbuterol/Ipratropium (Duoneb) 3 ML Q6HWA PRN INHClopidogrel Bisulfate (Plavix) 75 MG DAILY PODuloxetine HCl (Cymbalta) 60 MG DAILY POFolic Acid (Folvite) 1 MG DAILY POLisinopril (Prinivil,Zestril) 40 MG DAILY POMultivitamins (Multivitamin) 1 TAB DAILY POSodium Chloride (Saline Flush Syr(10ML)) 10 ML Q12H IVThiamine HCl (VITAMIN B1) 100 MG DAILY POHeparin Sodium (Porcine) (Heparin syringe) 100 UNIT Q12H IVAcetaminophen (Tylenol) 650 MG Q6HPRN PRN POAcetaminophen (Tylenol) 650 MG Q6HPRN PRN POGlucose (Insta-Glucose) 15 GM DAILY NEEDED PRN POSodium Chloride (Saline Flush Syr(10ML)) 10 ML QIDPRN PRN IVExamGeneral Appearance no acute distress, afebrile, alert, awake, conversantHead atraumatic, normocephalicENT moist mucosal membranesNeck no JVDCardiovascular regular rate, no gallop, no rub, normal heart soundsRespiratory clear to auscultation, no distress, on oxygen, decreased breathsoundsAbdomen soft, non-tender, no distention, normal bowel rosa nds, no guardingAbdominal quadrantsall normal bowel soundsUrinary no bladder distention, no flank painExtremities no cyanosis, no edema, normal pulses, ecchymosis, Pedal pulses +1bilaterally feet are warm and well perfused.Muscoskeletal full range of motion, normal inspectionNeurological alert, oriented x 3, normal cerebellar functio, normal speech, nomotor deficits, no sensory deficits, CNII-XXII grossly intact, no facialasymmetrySkin AssessmentSkin dry, warmLymphatic no lymphadenopathyPsych/Mental Status mood neutral, no hallucinationsResultsLaboratory DataRecent Labs-24 hours05/3111ChemistrySodium (136 - 147 mmol/L) 143Potassium (3.5 - 5.1 mmol/L) 4.0Chloride (99 - 110 mmol/L) 110Serum Bicarbonate (20 - 33 mmol/L) 30Anion Gap (10.0 - 20.0) 7.0 LBUN (7 - 23 mg/dL) 29 HCreatinine (0.500 - 1.300 mg/dL) 1.100Estimated GFR/1.73 m2 (mL/min) 52Glucose (70 - 110 mg/dL) 179 HPOC Glucose (70 - 110 mg/dL) 192 H 190 H 215 HCalcium (8.3 - 10.7 mg/dL) 8.4Magnesium (1.6 - 2.6 mg/dL) 1.8Total Bilirubin (0.1 - 1.1 mg/dL) 0.5AST (6 - 38 U/L) 33ALT (6 - 54 U/L) 31Alkaline Phosphatase (45 - 117 U/L) 191 HTotal Protein (6.0 - 7.8 g/dL) 5.9 LAlbumin (3.5 - 5.0 g/dL) 2.3 LGlobulin (2.3 - 3.5 g/dL) 3.6 HAlbumin/Globulin Ratio (1.0 - 2.5) 0.6 LH ematologyWBC (4.0 - 10.5 x10E3/uL) 9.52RBC (4.20 - 5.40 x10E6/uL) 3.54 LHgb (12.0 - 16.0 g/dL) 10.6 LHct (37.0 - 47.0 %) 32.3 LMCV (81.0 - 99.0 fL) 91.2MCH (27.0 - 31.0 pg) 29.9MCHC (32.7 - 35.6 g/dL) 32.8RDW (11.5 - 14.0 %) 18.0 HPlt Count (150 - 450 x10E3/uL) 158MPV (6.9 - 9.5 fl) 9.5Immature Gran % (Auto) (0.1 - 2.0 %) 0.8Neut % (Auto) (34 - 64 %) 82.7 HLymph % (Auto) (25 - 45 %) 7.7 LMono % (Auto) (1.7 - 10.6 %) 6.9Eos % (Auto) (0.4 - 7.0 %) 1.7Baso % (Auto) (0.1 - 2.0 %) 0.2Abs Immat Gran (auto) (0.0 - 0.1 x10E3/uL) 0.08Absolute Neuts (auto) (1.2 - 7.6 x10E3/uL) 7.87 HAbsolute Lymphs (auto) (1.0 - 3.5 x10E3/uL) 0.73 LAbsolute Monos (auto) (0.1 - 1.0 x10E3/uL) 0.66Absolute Eos (auto) (0.1 - 0.7 x10E3/uL) 0.16Absolute Basos (auto) (0.0 - 0.1 x10E3/uL) 0.02Nucleated RBC % (auto) (0 %) 0Results Reviewed labs reviewedAssessment/PlanProblem List1. PneumoniaStatus AcutePneumonia type: due to methicillin-resistant Staphylococcus aureus (MRSA)Laterality: unspecified laterality Lung location: unspecified part of lungQualified Code: J15.212 - Pneumonia due to Methicillin resistant Staphylococcusaureus2. Back painStatus Acute3. COPD (chronic obstructive pulmonary disease)Status Acute4. UTI (urinary tract infection)Status Resolved5. HLD (hyperlipidemia)Status Chronic6. Spinal stenosisStatus Chronic7. DepressionStatus Chronic8. HypothyroidismStatus Chronic9. HTN (hypertension)Status ChronicHypertension type: essential hypertension Qualified Code: I10 - Essential(primary) whcicymjbxys97. CKD (chronic kidney disease)Status Fndtyzl60. DiabetesStatus Cxejzkw65. AnxietyStatus Acute13. PVD (peripheral vascular disease)Status Gwrgyuv41. DebilityStatus Umzknim76. HypoalbuminemiaStatus Xkgokfe59. Polysubstance abuseStatus Jmhdicd99. HyperglycemiaStatus Acute18. T1-T2 SUBACUTE FRACTUREStatus Acute19. Anemia of chronic diseaseStatus Acute20. ThrombocytopeniaAdditional NotesAdditional Notes1. PneumoniaStatus AcuteA&PCompleted course of Augmentin. Continue O2 as per home 3 L all times. Bloodcultures negative. Urine culture negative. Continue to monitor. Nebulizer asneeded. White blood count improved. UA negative.Pneumonia type: due to methicillin-resistant Staphylococcus aureus (MRSA)Laterality: unspecified laterality Lung location: unspecified part of lungQualified Code: J15.212 - Pneumonia due to Methicillin resistant Staphylococcusaureus2. Back painStatus AcuteA&PImproved. Continue to monitor. Blood cultures negative. Continue currentpain medication.3. COPD (chronic obstructive pulmonary disease)Status AcuteA&PWean steroid to home dosing of 10 mg daily. Change to oral antibiotic and hasnow completed the course of Augmentin, DuoNebs. Oxygen therapy chronically.4. UTI (urinary tract infection)Status ResolvedA&PRuled out.5. HLD (hyperlipidemia)Status ChronicA&PContinue statin6. Spinal stenosisStatus ChronicA&PContinue with current pain management.7. DepressionStatus ChronicA&PContinue Cymbalta. Continue BuSpar.8. HypothyroidismStatus ChronicA&PContinue levothyroxine.9. HTN (hypertension)Status ChronicA&PContinue lisinopril. Continue hydralazine and Imdur as well as metoprololwhich is increased. Added back Norvasc yesterday.Hypertension type: essential hypertension Qualified Code: I10 - Essential(primary) . CKD (chronic kidney disease)Status ChronicA&PStable continue to monitor as needed.11. DiabetesStatus ChronicA&PContinue long-acting insulin as well as ACHS with sliding scale coverage.Taper steroids to home dosing 10 mg. Blood sugars have not been optimal andwill increase long-acting insulin to 10 units subcu daily.12. AnxietyStatus AcuteA&PContinue BuSpar benzodiazepine.13. PVD (peripheral vascular disease)Status ChronicA&PContinue Plavix and statin. Note that patient does have stents.14. DebilityStatus ChronicA&PSupportive care PT OT.15. HypoalbuminemiaStatus ChronicA&PContinue supplements.16. Polysubstance abuseStatus ChronicA&PContinue thiamine folic acid MVI. Avoid narcotics.17. HyperglycemiaStatus AcuteA&PImproved. Taper steroids. Continue insulin coverage.18. T1-T2 SUBACUTE FRACTUREStatus AcuteA&PPT OT. Pain control.19. Anemia of chronic diseaseStatus AcuteA&PAnemia work-up shows chronic anemia. Transfused 2 units. Hemoglobin stabletoday. We will repeat hemoglobin in a.m. B Vitamins within normal limits.20. ThrombocytopeniaA&PMonitor.Additional NotesLabs in a.m.DVT prophylaxis with heparin.GI prophylaxis on PPI to chronic steroid useTime spent 35 minutesPatient failed PT evaluation for home discharge and they feel she requiresshort-term rehab. This is the only option for this patient at this time. [facility]. This plan is the patient's wishes.Resuscitation status Full codePlan discussed with patient, Summer discussed with case management specialist, nursing staffDATE SIGNED: 06/01/20 Electronically SignedTIME SIGNED: 1519 CR TASHA SCOTTY Name Value Range Interpretation Code Description Data Rosa rce(s) Supporting Document(s) ID Date Data Source [id number] 06/01/2020 03:18:00 PM EDT [facility] Name Value Range Interpretation Code Description Data Rosa rce(s) Supporting Document(s) FGLU 157 mg/dL 70-110 H [facility] ID Date Data Source [id number] 06/01/2020 06:19:00 AM EDT [facility] Name Value Range Interpretation Code Description Data Rosa rce(s) Supporting Document(s) FGLU 215 mg/dL 70-110 H [facility] ID Date Data Source [id number] 06/01/2020 05:52:00 AM EDT [facility] Name Value Range Interpretation Code Description Data Rosa rce(s) Supporting Document(s) GLU 179 mg/dL 70-110 H [facility] Patients taking Sulfasalazine may have f alsely depressedGlucose levels. Patients taking Sulfapyridine may havefalsely elevated Glucose levels. Patients should be drawnfor Glucose before the initial administration of eitherdrug. BUN 29 mg/dL 7-23 H [facility] CRE 1.100 mg/dL 0.500-1.300 [facility] GFR 52 mL/min [facility] CHLORIDE 110 mmol/L 99-110 [facility] NA 143 mmol/L 136-147 [facility] POTASSIUM 4.0 mmol/L 3.5-5.1 [facility] TCO2 30 mmol/L 20-33 [facility] ANION GAP 7.0 10.0-20.0 L [facility] CA 8.4 mg/dL 8.3-10.7 [facility] ALKALINE PHOS 191 U/L 45-117 H [facility] TP 5.9 g/dL 6.0-7.8 L [facility] ALB 2.3 g/dL 3.5-5.0 L [facility] ESRD Dialysis patient Albumin reference range: 2.9-4.4 g/dL GL 3.6 g/dL 2.3-3.5 H [facility] A/G 0.6 1.0-2.5 [facility] T. BILIRUBIN 0.5 mg/dL 0.1-1.1 [facility] [employer] [place] Total Bilirubin is n ot recommended forpatients undergoing treatment with eltrombopag (Promacta)due to the potential for falsely elevated results. ALTI 31 U/L 6-54 [facility] Patients taking Sulfasalazine and/or Sul fapyridine may havefalsely depressed ALT levels. Patients should be drawn forALT before the initial administration of either drug. AST 33 U/L 6-38 [facility] Patients taking Sulfasalazine and/or Sul fapyridine may havefalsely depressed AST levels. Patients should be drawn forAST before the initial administration of either drug. ID Date Data Source [id number] 06/01/2020 05:52:00 AM EDT [facility] Name Value Range Interpretation Code Description Data Rosa rce(s) Supporting Document(s) MAGNESIUM 1.8 mg/dL 1.6-2.6 [facility] ID Date Data Source [id number] 06/01/2020 05:27:00 AM EDT [facility] Name Value Range Interpretation Code Description Data Rosa rce(s) Supporting Document(s) WBC 9.52 x10E3/uL 4.0-10.5 [facility] RBC 3.54 x10E6/uL 4.20-5.40 [facility] Hemoglobin 10.6 g/dL 12.0-16.0 DL [facility] Delta: 7.6 on 05/31/20 Hematocrit 32.3 % 37.0-47.0 DL [facility] Delta: 24.1 on 05/31/20 MCV 91.2 fL 81.0-99.0 D [facility] Delta: 97.2 on 05/31/20 MCH 29.9 pg 27.0-31.0 [facility] MCHC 32.8 g/dL 32.7-35.6 N [facility] RDW 18.0 % 11.5-14.0 H [facility] Platelet count 158 x10E3/uL 150-450 [facility] MPV 9.5 fl 6.9-9.5 [facility] Neutrophils 82.7 % 34-64 [facility] Lymphocytes 7.7 % 25-45 L [facility] Monocytes 6.9 % 1.7-10.6 N [facility] Eosinophils 1.7 % 0.4-7.0 [facility] Basophils 0.2 % 0.1-2.0 [facility] Imm. Gran. 0.8 % 0.1-2.0 [facility] Abs. Neutro. 7.87 x10E3/uL 1.2-7.6 [facility] Abs. Lymph. 0.73 x10E3/uL 1.0-3.5 [facility] Abs. Curry. 0.66 x10E3/uL 0.1-1.0 [facility] Abs. Eosin. 0.16 x10E3/uL 0.1-0.7 [facility] Abs. Baso. 0.02 x10E3/uL 0.0-0.1 [facility] Abs. Imm. Gran. 0.08 x10E3/uL 0.0-0.1 [facility] ANRBC% 0 % 0 [facility] ID Date Data Source [id number] 06/01/2020 12:26:00 AM EDT [facility] Name Value Range Interpretation Code Description Data Rosa rce(s) Supporting Document(s) FGLU 190 mg/dL 70-110 [facility] ID Date Data Source [id number] 05/31/2020 06:26:00 PM EDT [facility] Name Value Range Interpretation Code Description Data Rosa rce(s) Supporting Document(s) FGLU 192 mg/dL 70-110 [facility] ID Date Data Source [id number] 05/31/2020 02:27:00 PM EDT [facility] [place] [id number] NOTEPATIENT NAME: ELA PONCEREGGIE PHYSICIAN: MICHAEL WANG MDAUTHOR: Selma Caballero. DATE: 05/18/20 MR#: [id number] NOTE DATE: 05/31/20 RM#: [id number] TIME: 1508 : 45SubjectiveEvents Since Last EntryPatient seen and examined today. Chart reviewed. She did not pass a PT homesafety evaluation 05/30/2020 and is unsafe for discharge to home. PT feels sheneeds short term rehab. Patient's hemoglobin is 7.6 today. Iron studies wereperformed and showed no iron deficiency consistent with GI blood loss.Ferritin is greater than 100. Her studies are consistent with anemia ofchronic disease. I discussed a transfusion of 2 units with her given that shewill likely not respond well to supplements such as iron or be vitamins giventhat this is chronic anemia. She is agreeable to transfusion of 2 units. Bryn give her 20 of Lasix between units. She is quite upset [facility] Mild clinical dehydration is resolved.Awaiting rehab to discharge. Encourage p.o. today. Chest x-ray shows clearingpneumonia with absent left pneumonia based on my review of old imaging report.Leukocytosis is improved. Urine culture is negative. She will have follow-uplabs in a.m.Review of SystemsSystems reviewed and negative Constitutional, Integumentary, Eyes, ENT,Respiratory, Cardiovascular, GI, , Musculoskeletal, Aldo, Endocrine,Neurology, Psych, Allergy/ImmunologyObjectiveVital SignsVital Signs-24 HRS05/30 2038 2145 2157Temp 98.1 97.1Pulse 76 78 76Resp 18 16B/P 122/68 160/63 160/63B/P MeanPulse Ox 91 90O2 Delivery Nasal cannula Nasal cannula Nasal cannulaO2 Flow Rate 3 3L 5CVfC13705/31 0831 0835 0837 0840Temp 97.8Pulse 74 75Resp 16B/P 165/72 142/58 142/58 142/58B/P MeanPulse Ox 94O2 Delivery Nasal cannula Nasal cannulaO2 Flow Rate 4L 1DjN234/403055NqspYyyia 75RespB/P 142/58B/P MeanPulse OxO2 DeliveryO2 Flow GmlcBpD3Ppehvu/OutputIntake/Output Summary 24 hours05/30 1900 05/31 0700Intake Total 1300 420Output Total 2 900Balance 1298 -480Intake, IV 400Intake, Oral 900 420Number 3 2BowelMovementsNumber 2IncontinentVoidsNumber 1UnmeasuredVoidsOutput, Stool 2Output, Urine 900Current MedicationsMetoprolol Tartrate (Lopressor) 50 MG BID POAmlodipine Besylate (Norvasc) 10 MG DAILY POInsulin Detemir (Levemir) 10 UNIT DAILY SUBCUTPantoprazole Sodium (Protonix) 40 MG BID POPrednisone (Orasone) 10 MG DAILY POSenna/Docusate Sodium (Senokot S) 2 TAB QHSPRN PRN POOxycodone HCl (Oxyir) 10 MG Q6HPRN PRN POHeparin Sodium (Porcine) (Heparin Sodium) 5,000 UNIT Q12H SUBCUTFerrous Sulfate (Iron) 325 MG BID POIsosorbide Mononitrate (Imdur) 90 MG DAILY POCyclobenzaprine HCl (Flexeril) 5 MG TID POHydralazine HCl (Apresoline) 50 MG TID POLevothyroxine Sodium (Synthroid) 75 MCG DAILY PONicotine (Nicoderm) 21 MG DAILY TOPInsulin Aspart (Humalog Insulin) Low dose sliding scaleAC MEAL SUBCUTAtorvastatin Calcium (Lipitor) 40 MG QHS POBuspirone HCl (Buspar) 5 MG BID POChlorhexidine Gluconate (Chlorhexidine Gluconate) 0 BID MMInsulin Aspart (Humalog Insulin) 0 QHS SUBCUTMiscellaneous (Patch off) 1 PAT QHS NAAlbuterol/Ipratropium (Duoneb) 3 ML Q6HWA PRN INHClopidogrel Bisulfate (Plavix) 75 MG DAILY PODuloxetine HCl (Cymbalta) 60 MG DAILY POFolic Acid (Folvite) 1 MG DAILY POLisinopril (Prinivil,Zestril) 40 MG DAILY POMultivitamins (Multivitamin) 1 TAB DAILY POSodium Chloride (Saline Flush Syr(10ML)) 10 ML Q12H IVThiamine HCl (VITAMIN B1) 100 MG DAILY POHeparin Sodium (Porcine) (Heparin syringe) 100 UNIT Q12H IVAcetaminophen (Tylenol) 650 MG Q6HPRN PRN POAcetaminophen (Tylenol) 650 MG Q6HPRN PRN POGlucose (Insta-Glucose) 15 GM DAILY NEEDED PRN POSodium Chloride (Saline Flush Syr(10ML)) 10 ML QIDPRN PRN IVExamGeneral Appearance no acute distress, afebrile, alert, awake, conversantHead atraumatic, normocephalicENT moist mucosal membranesNeck no JVDCardiovascular regular rate, no gallop, no rub, normal heart soundsRespiratory clear to auscultation, no distress, on oxygen, decreased breathsoundsAbdomen soft, non-tender, no distention, normal bowel sounds, no guardingAbdominal quadrantsall normal bowel soundsUrinary no bladder distention, no flank painExtremities no cyanosis, no edema, normal pulses, ecchymosis, Pedal pulses +1bilaterally feet are warm and well perfused.Muscoskeletal full range of motion, normal inspectionNeurological alert, oriented x 3, normal cerebellar functio, normal speech, nomotor deficits, no sensory deficits, CNII-XXII grossly intact, no facialasymmetrySkin AssessmentSkin dry, warm, Triple-lumen catheter site clean dry and intact.Lymphatic no lymphadenopathyPsych/Mental Status mood neutral, no hallucinationsAssessment/PlanProblem List1. PneumoniaStatus AcutePneumonia type: due to methicillin-resistant Staphylococcus aureus (MRSA)Laterality: unspecified laterality Lung location: unspecified part of lungQualified Code: J15.212 - Pneumonia due to Methicillin resistant Sta phylococcusaureus2. Back painStatus Acute3. COPD (chronic obstructive pulmonary disease)Status Acute4. UTI (urinary tract infection)Status Resolved5. HLD (hyperlipidemia)Status Chronic6. Spinal stenosisStatus Chronic7. DepressionStatus Chronic8. HypothyroidismStatus Chronic9. HTN (hypertension)Status ChronicHypertension type: essential hypertension Qualified Code: I10 - Essential(primary) osigqgsskyyk72. CKD (chronic kidney disease)Status Xkxjdxq85. DiabetesStatus Bxpceos74. AnxietyStatus Acute13. PVD (peripheral vascular disease)Status Tzfzfyy88. DebilityStatus Lgershn95. HypoalbuminemiaStatus Qzgmlvz58. Polysubstance abuseStatus Cjgsweg21. HyperglycemiaStatus Acute18. T1-T2 SUBACUTE FRACTUREStatus Acute19. Anemia of chronic diseaseStatus Acute20. ThrombocytopeniaAdditional NotesAdditional Notes1 . PneumoniaStatus AcuteA&PCompleted course of Augmentin. Continue O2 as per home 3 L all times. Bloodcultures negative. Urine culture negative. Continue to monitor. Nebulizer asneeded. White blood count improved. UA negative.Pneumonia type: due to methicillin-resistant Staphylococcus aureus (MRSA)Laterality: unspecified laterality Lung location: unspecified part of lungQualified Code: J15.212 - Pneumonia due to Methicillin resistant Staphylococcusaureus2. Back painStatus AcuteA&PImproved. Continue to monitor. Blood cultures negative. Continue currentpain medication.3. COPD (chronic obstructive pulmonary disease)Status AcuteA&PWean steroid to home dosing of 10 mg daily. Change to oral antibiotic and hasnow completed the course of Augmentin, DuoNebs. Oxygen therapy chronically.4. UTI (urinary tract infection)Status ResolvedA&PRuled out.5. HLD (hyperlipidemia)Status ChronicA&PContinue statin6. Spinal stenosisStatus ChronicA&PContinue with current pain management.7. DepressionStatus ChronicA&PContinue Cymbalta. Continue BuSpar.8. HypothyroidismStatus ChronicA&PContinue levothyroxine.9. HTN (hypertension)Status ChronicA&PContinue lisinopril. Continue hydralazine and Imdur as well as metoprololwhich is increased. Added back Norvasc yesterday.Hypertension type: essential hypertension Qualified Code: I10 - Essential(primary) jvkefmjitleb81. CKD (chronic kidney disease)Status ChronicA&PStable continue to monitor as needed.11. DiabetesStatus ChronicA&PContinue long-acting insulin as well as a CHS with sliding scale coverage.Taper steroids. Blood sugars have not been optimal and will increase long-acting insulin to 10 units subcu daily.12. AnxietyStatus AcuteA&PContinue BuSpar benzodiazepine.13. PVD (peripheral vascular disease)Status ChronicA&PContinue Plavix and statin. Note that patient does have stents.14. DebilityStatus ChronicA&PSupportive care PT OT.15. HypoalbuminemiaStatus ChronicA&PContinue supplements.16. Polysubstance abuseStatus ChronicA&PContinue thiamine folic acid MVI. Avoid narcotics.17. HyperglycemiaStatus AcuteA&PImproved. Taper steroids. Continue insulin coverage.18. T1-T2 SUBACUTE FRACTUREStatus AcuteA&PPT OT. Pain control.19. Anemia of chronic diseaseStatus AcuteA&PWill get B vitamins in a.m. as well as start iron and Protonix. Continue tomonitor for blood loss. No gross blood loss. Transfuse 2 units today forchronic anemia as evidenced by her iron studies and ferritin. Check labs michelle.m. antibiotics completed.20. ThrombocytopeniaA&PMonitor.Additional NotesLabs in a.m.DVT prophylaxis with heparin.GI prophylaxis on PPI to chronic steroid useTime spent 35 minutesPatient failed PT evaluation for home discharge and they feel she requiresshort-term rehab. This is the only option for this patient at this time. [facility]will [facility]. This plan is the patient's wishes.Resuscitation status Full codeResuscitation status Full codeAdditional NotesConsiderations to discontinuing her triple-lumen catheter should be given at 14days. Triple-lumen was inserted 05/18/2020. Hopefully we will discontinue thistomorrow if she is not.DATE SIGNED: 05/31/20 Electronically SignedTIME SIGNED: 1508 CR FAJARDO Name Value Range Interpretation Code Description Data Rosa rce(s) Supporting Document(s) ID Date Data Source [id number] 05/31/2020 03:10:00 PM EDT [place] Hillary randle Name Value Range Interpretation Code Description Data Rosa rce(s) Supporting Document(s) FGLU 210 mg/dL 70-110 [facility] ID Date Data Source [id number] 05/31/2020 10:22:00 AM EDT [place] Hillary randle COMMENTS TO LAB: off am labs please Name Value Range Interpretation Code Description Data Rosa rce(s) Supporting Document(s) RETIC % 4.56 % 0.5-2.7 [facility] RETIC ABS. # 0.11 x10E6/uL 0.02-0.15 [facility] IMM. RETIC FRAC 16.00 % 15-20 [facility] HEMO 33.9 pg 29-35 [facility] ID Date Data Source [id number] 05/31/2020 09:15:00 AM EDT [facility] COMMENTS TO LAB: off am labs please Name Value Range Interpretation Code Description Data Rosa rce(s) Supporting Document(s) SUZY 163.6 ng/mL 8.0-252.0 N [facility] ID Date Data Source [id number] 05/31/2020 08:32:00 AM EDT [facility] COMMENTS TO LAB: off am labs please Name Value Range Interpretation Code Description Data Rosa rce(s) Supporting Document(s) FE 62 ug/dL 42-175 [facility] Patients treated with metal-binding drug s(i.e. Deferoxamine) may have depressed iron values aschelated iron may not properly react in the iron assay. UNBOUND IRON BC 127 ug/dL 130-375 [facility] TOTAL IRON BC 189.0 ug/dL 250-400 [facility] % IRON SAT. 32.8 % 30-35 N [facility] ID Date Data Source [id number] 05/31/2020 09:20:00 AM EDT [facility] Name Value Range Interpretation Code Description Data Rosa rce(s) Supporting Document(s) FGLU 300 mg/dL 70-110 [facility] ID Date Data Source [id number] 06/01/2020 07:46:00 PM EDT [facility] Name Value Range Interpretation Code Description Data Rosa rce(s) Supporting Document(s) [id number] TRANSFUSED PRODUCT: PACKED CELLS CO UNT: 2 [facility] ID Date Data Source [id number] 06/01/2020 07:46:00 PM EDT [facility] *Clinically Significant Acute Blood [place] s N *Hgb < or = to 7.0g/dL or Hct < or = to 21% N *Hgb < 8.0g/dL or Hct < 24% and PT Hemodynamically Unstable N *Hgb < 8.0 for Anemia and an Acute LA or Unstable Angina Y *Hgb < 9.0g/dL with Chronic Transfusion Therapy N *Maximum Blood Order Schedule N *Other (must indicate reason for transfusion if not above): anemia w/ CAD, COPDIrradiated? NCMV Negative? NTransfuse 2units over 3UNIT NUMBER: [id number]: YPRODUCT: LEUKO REDUCED RED BLOOD CELLSSOURCE: [place] TYPE: A NEGATIVEVOLUME: 283MLCROSSMATCH COMPONENTS:00UNIT NUMBER: [id number]: YPRODUCT: LEUKO REDUCED RED BLOOD CELLSSOURCE: [place] [place] TYPE: A NEGATIVEVOLUME: 309MLCROSSMATCH COMPONENTS:00 Name Value Range Interpretation Code Description Data Rosa rce(s) Supporting Document(s) ID Date Data Source [id number] 06/01/2020 07:46:00 PM EDT [facility] *Clinically Significant Acute Blood [place] s N *Hgb < or = to 7.0g/dL or Hct < or = to 21% N *Hgb < 8.0g/dL or Hct < 24% and PT Hemodynamically Unstable N *Hgb < 8.0 for Anemia and an Acute LA or Unstable Angina Y *Hgb < 9.0g/dL with Chronic Transfusion Therapy N *Maximum Blood Order Schedule N *Other (must indicate reason for transfusion if not above): anemia w/ CAD, COPDIrradiated? NCMV Negative? NTransfuse 2units over 3 Name Value Range Interpretation Code Description Data Rosa rce(s) Supporting Document(s) ANTIBODY ID ANTI D N [facility] CAN NOT RULE OUT C AND E ID Date Data Source [id number] 06/01/2020 07:46:00 PM EDT [place] [facility] *Clinically Significant Acute Blood [place] N *Hgb < or = to 7.0g/dL or Hct < or = to 21% N *Hgb < 8.0g/dL or Hct < 24% and PT Hemodynamically Unstable N *Hgb < 8.0 for Anemia and an Acute LA or Unstable Angina Y *Hgb < 9.0g/dL with Chronic Transfusion Therapy N *Maximum Blood Order Schedule N *Other (must indicate reason for transfusion if not above): anemia w/ CAD, COPDIrradiated? NCMV Negative? NTransfuse 2units over 3 Name Value Range Interpretation Code Description Data Rosa rce(s) Supporting Document(s) BLOOD TYPE AB NEGATIVE [facility] ANTIBODY SCREEN POSITIVE [facility] al ID Date Data Source [id number] 05/31/2020 09:35:00 AM EDT [facility] Name Value Range Interpretation Code Description Data Rosa rce(s) Supporting Document(s) DATIgG NEGATIVE NEGATIVE [facility] ID Date Data Source [id number] 05/31/2020 06:49:00 AM EDT [place] [facility] Name Value Range Interpretation Code Description Data Rosa rce(s) Supporting Document(s) MAGNESIUM 2.1 mg/dL 1.6-2.6 [facility] ID Date Data Source [id number] 05/31/2020 06:49:00 AM EDT [facility] Name Value Range Interpretation Code Description Data Rosa rce(s) Supporting Document(s) GLU 224 mg/dL 70-110 H [facility] Patients taking Sulfasalazine may have f alsely depressedGlucose levels. Patients taking Sulfapyridine may havefalsely elevated Glucose levels. Patients should be drawnfor Glucose before the initial administration of eitherdrug. BUN 27 mg/dL 7-23 H [facility] CRE 1.120 mg/dL 0.500-1.300 [facility] GFR 51 mL/min [facility] CHLORIDE 110 mmol/L 99-110 [facility] NA 143 mmol/L 136-147 [facility] POTASSIUM 4.5 mmol/L 3.5-5.1 [facility] TCO2 29 mmol/L 20-33 [facility] ANION GAP 8.5 10.0-20.0 L [facility] CA 8.2 mg/dL 8.3-10.7 L [facility] ALKALINE PHOS 159 U/L 45-117 H [facility] TP 5.1 g/dL 6.0-7.8 [facility] ALB 2.1 g/dL 3.5-5.0 [facility] ESRD Dialysis patient Albumin reference range: 2.9-4.4 g/dL GL 3.0 g/dL 2.3-3.5 [facility] A/G 0.7 1.0-2.5 [facility] T. BILIRUBIN 0.3 mg/dL 0.1-1.1 [facility] [employer] [place] Total Bilirubin is n ot recommended forpatients undergoing treatment with eltrombopag (Promacta)due to the potential for falsely elevated results. ALTI 26 U/L 6-54 [facility] Patients taking Sulfasalazine and/or Sul fapyridine may havefalsely depressed ALT levels. Patients should be drawn forALT before the initial administration of either drug. AST 18 U/L 6-38 [facility] Patients taking Sulfasalazine and/or Sul fapyridine may havefalsely depressed AST levels. Patients should be drawn forAST before the initial administration of either drug. ID Date Data Source [id number] 05/31/2020 06:27:00 AM EDT [facility] Name Value Range Interpretation Code Description Data Rosa rce(s) Supporting Document(s) WBC 10.61 x10E3/uL 4.0-10.5 [facility] RBC 2.48 x10E6/uL 4.20-5.40 [facility] Hemoglobin 7.6 g/dL 12.0-16.0 [facility] Hematocrit 24.1 % 37.0-47.0 [facility] MCV 97.2 fL 81.0-99.0 [facility] MCH 30.6 pg 27.0-31.0 [facility] MCHC 31.5 g/dL 32.7-35.6 [facility] RDW 16.6 % 11.5-14.0 H [facility] Platelet count 167 x10E3/uL 150-450 [facility] MPV 10.0 fl 6.9-9.5 H [facility] Neutrophils 84.1 % 34-64 H [facility] Lymphocytes 8.2 % 25-45 [facility] Monocytes 5.8 % 1.7-10.6 [facility] Eosinophils 0.8 % 0.4-7.0 [facility] Basophils 0.3 % 0.1-2.0 [facility] Imm. Gran. 0.8 % 0.1-2.0 [facility] Abs. Neutro. 8.92 x10E3/uL 1.2-7.6 H [place] [facility] Abs. Lymph. 0.87 x10E3/uL 1.0-3.5 [facility] [place] [facility] Abs. Curry. 0.62 x10E3/uL 0.1-1.0 N [facility] l Abs. Eosin. 0.09 x10E3/uL 0.1-0.7 [facility] Abs. Baso. 0.03 x10E3/uL 0.0-0.1 N [facility] l Abs. Imm. Gran. 0.08 x10E3/uL 0.0-0.1 [facility] spital ANRBC% 0 % 0 [facility] ID Date Data Source [id number] 05/31/2020 01:23:00 AM EDT [facility] Name Value Range Interpretation Code Description Data Rosa rce(s) Supporting Document(s) URINE RBC 0-2 RBCs/HPF NONE SEEN [facility] URINE WBC 11-20 WBCs/HPF NONE SEEN [facility] l A URINE CULTURE HAS BEEN ADDED TO THIS S PECIMEN URINE BACTERIA Few NONE SEEN [facility] URINE EPI. Few NONE SEEN [facility] URINE YEAST Many NONE SEEN [facility] A URINE CULTURE HAS BEEN ADDED TO THIS S PECIMEN ID Date Data Source [id number] 05/31/2020 01:23:00 AM EDT [facility] Name Value Range Interpretation Code Description Data Rosa rce(s) Supporting Document(s) URINE COLOR Yellow [facility] UAPR Cloudy [facility] UGLU Negative NEGATIVE [facility] URINE BILIRUBIN Negative NEGATIVE [facility] UKET Negative NEGATIVE [facility] USG 1.015 1.010-1.025 [facility] UBLO Negative NEGATIVE N [facility] UpH 5.5 5.0-8.0 [facility] UPRO 3+ Negative N [facility] UUB 0.2 mg/dL 0.2-1.0 [facility] UNIT Negative Negative [facility] ULEU Trace Negative [facility] ID Date Data Source [id number] 05/30/2020 11:33:00 PM EDT [facility] Name Value Range Interpretation Code Description Data Rosa rce(s) Supporting Document(s) FGLU 214 mg/dL 70-110 H [facility] ID Date Data Source [id number] 05/30/2020 04:51:00 PM EDT [facility] Name Value Range Interpretation Code Description Data Rosa rce(s) Supporting Document(s) FGLU 129 mg/dL 70-110 H [facility] ID Date Data Source [id number] 05/30/2020 02:17:00 PM EDT [address] [id number] NOTEPATIENT NAME: JOHNFRANCISCOALFREDOELASALLY VIVAR PHYSICIAN: MICHAEL WANG MDAUTHOR: Selma Caballero. DATE: 05/18/20 MR#: [id number] NOTE DATE: 05/30/20 RM#: [id number] TIME: 1426 : 45SubjectiveEvents Since Last EntryPatient seen and examined today. Chart reviewed. She did not pass a PT homesafety evaluation yesterday and is unsafe for discharge to home. PT feels sheneeds short term rehab. Patient feeling a bit fatigued today. She is quiteupset that she is not getting rehab at [facility]. Labs show some milddehydration. Will give a liter of fluid x1 while awaiting rehab then DC.Encourage p.o. today. Chest x-ray shows clearing pneumonia with absent leftpneumonia based on my review of old imaging report. We will get labs in a.m.for good measure.Review of SystemsSystems reviewed and negative Constitutional, Integumentary, Eyes, ENT,Respiratory, Cardiovascular, GI, , Musculoskeletal, Aldo, Endocrine,Neurology, Psych, Allergy/ImmunologyObjectiveVital SignsVital Signs-24 HRS05/29 2043 2103 2200 0600Temp 98.2 98.3Pulse 78 77 77 86Resp 18 18B/P 158/88 168/70 168/70 146/61B/P MeanPulse Ox 95 92O2 Delivery Nasal cannula Nasal cannula Nasal cannulaO2 Flow Rate 3L 3L 0BNzL01005/30 0930 0930 0931 0938TempPulse 82 82RespB/P 169/65 169/65 169/65 169/65 B/P MeanPulse OxO2 Delivery Nasal cannulaO2 Flow Rate 6ErL5Nfijph/OutputIntake/Output Summary 24 hours05/29 1900 05/30 0700Intake Total 960 220Output TotalBalance 960 220Intake, Oral 960 220Number 2 1BowelMovementsNumber 4 1UnmeasuredVoidsCurrent MedicationsSodium Chloride (SODIUM CHLORIDE 0.9%) 1,000 ML .Q10H IVMetoprolol Tartrate (Lopressor) 50 MG BID POAmlodipine Besylate (Norvasc) 10 MG DAILY POInsulin Detemir (Levemir) 10 UNIT DAILY SUBCUTPantoprazole Sodium (Protonix) 40 MG BID POPrednisone (Orasone) 10 MG DAILY POSenna/Docusate Sodium (Senokot S) 2 TAB QHSPRN PRN POOx ycodone HCl (Oxyir) 10 MG Q6HPRN PRN POHeparin Sodium (Porcine) (Heparin Sodium) 5,000 UNIT Q12H SUBCUTFerrous Sulfate (Iron) 325 MG BID POIsosorbide Mononitrate (Imdur) 90 MG DAILY POCyclobenzaprine HCl (Flexeril) 5 MG TID POHydralazine HCl (Apresoline) 50 MG TID POLevothyroxine Sodium (Synthroid) 75 MCG DAILY PONicotine (Nicoderm) 21 MG DAILY TOPInsulin Aspart (Humalog Insulin) Low dose sliding scaleAC MEAL SUBCUTAtorvastatin Calcium (Lipitor) 40 MG QHS POBuspirone HCl (Buspar) 5 MG BID POChlorhexidine Gluconate (Chlorhexidine Gluconate) 0 BID MMInsulin Aspart (Humalog Insulin) 0 QHS SUBCUTMiscellaneous (Patch off) 1 PAT QHS NAAlbuterol/Ipratropium (Duoneb) 3 ML Q6HWA PRN INHClopidogrel Bisulfate (Plavix) 75 MG DAILY PODuloxetine HCl (Cymbalta) 60 MG DAILY POFolic Acid (Folvite) 1 MG DAILY POLisinopril (Prinivil,Zestril) 40 MG DAILY POMultivitamins (Multivitamin) 1 TAB DAILY POSodium Chloride (Saline Flush Syr(10ML)) 10 ML Q12H IVThiamine HCl (VITAMIN B1) 100 MG DAILY POHeparin Sodium (Porcine) (Heparin syringe) 100 UNIT Q12H IVAcetaminophen (Tylenol) 650 MG Q6HPRN PRN POAcetaminophen (Tylenol) 650 MG Q6HPRN PRN POGlucose (Insta-Glucose) 15 GM DAILY NEEDED PRN POSodium Chloride (Saline Flush Syr(10ML)) 10 ML QIDPRN PRN IVExamGeneral Appearance no acute distress, afebrile, alert, awake, conversantHead atraumatic, normocephalicENT moist mucosal membranesNeck no JVDCardiovascular regular rate, no gallop, no rub, normal heart sound sRespiratory clear to auscultation, no distress, on oxygen, decreased breathsoundsAbdomen soft, non-tender, no distention, normal bowel sounds, no guardingAbdominal quadrantsall normal bowel soundsUrinary no bladder distention, no flank painExtremities no cyanosis, no edema, normal pulses, ecchymosis, Pedal pulses +1bilaterally feet are warm and well perfused.Muscoskeletal full range of motion, normal inspectionNeurological alert, oriented x 3, normal cerebellar functio, normal speech, nomotor deficits, no sensory deficits, CNII-XXII grossly intact, no facialasymmetrySkin AssessmentSkin dry, intact, warmLymphatic no lymphadenopathyPsych/Mental Status mood neutral, no hallucinationsResultsLaboratory DataRecent Labs-24 hours05/2909 0948 1142ChemistrySodium (136 - 147 mmol/L) 141Potassium (3.5 - 5.1 mmol/L) 4.0Chloride (99 - 110 mmol/L) 108Serum Bicarbonate (20 - 33 mmol/L) 29Anion Gap (10.0 - 20.0) 8.0 LBUN (7 - 23 mg/dL) 25 HCreatinine (0.500 - 1.300 mg/dL) 1.330 HEstimated GFR/1.73 m2 (mL/min) 41Glucose (70 - 110 mg/dL) 285 HPOC Glucose (70 - 110 mg/dL) 108 314 H 259 H 325 HCalcium (8.3 - 10.7 mg/dL) 8.1 LTotal Bilirubin (0.1 - 1.1 mg/dL) 0.3AST (6 - 38 U/L) 24ALT (6 - 54 U/L) 30Alkaline Phosphatase (45 - 117 U/L) 170 HTotal Protein (6.0 - 7.8 g/dL) 5.2 LAlbumin (3.5 - 5.0 g/dL) 2.2 LGlobulin (2.3 - 3.5 g/dL) 3.0Albumin/Globulin Ratio (1.0 - 2.5) 0.7 LResults Reviewed labs reviewedAssessment/PlanProblem List1. PneumoniaStatus AcutePneumonia type: due to methicillin-resistant Staphylococcus aureus (MRSA)Laterality: unspecified laterality Lung location: unspecified part of lungQualified Code: J15.212 - Pneumonia due to Methicillin resistant Staphylococ cusaureus2. Back painStatus Acute3. COPD (chronic obstructive pulmonary disease)Status Acute4. UTI (urinary tract infection)Status Resolved5. HLD (hyperlipidemia)Status Chronic6. Spinal stenosisStatus Chronic7. DepressionStatus Chronic8. HypothyroidismStatus Chronic9. HTN (hypertension)Status ChronicHypertension type: essential hypertension Qualified Code: I10 - Essential(primary) nqfaokagnrum55. CKD (chronic kidney disease)Status Fwplqqs04. DiabetesStatus Mplfsfo31. AnxietyStatus Acute13. PVD (peripheral vascular disease)Status Lejkarr89. DebilityStatus Wixxtft00. HypoalbuminemiaStatus Itwzphk05. Polysubstance abuseStatus Wfixchf84. HyperglycemiaStatus Acute18. T1-T2 SUBACUTE FRACTUREStatus Acute19. Anemia of chronic diseaseStatus Acute20. ThrombocytopeniaAdditional Notes1. PneumoniaStatus AcuteA&PPleated course of Augmentin. Continue O2 as per home 3 L all times. Bloodcultures negative. Urine culture negative. Continue to monitor. Nebulizer asneededPneumonia type: due to methicillin-resistant Staphylococcus aureus (MRSA)Laterality: unspecified laterality Lung location: unspecified part of lungQualified Code: J15.212 - Pneumonia due to Methicillin resistant Staphylococcusaureus2. Back painStatus AcuteA&PImproved. Continue to monitor. Blood cultures negative. Continue currentpain medication.3. COPD (chronic obstructive pulmonary disease)Status AcuteA&PWean steroid to home d osing of 10 mg daily. Change to oral antibiotic and hasnow completed the course of Augmentin DuoNebs. Oxygen therapy chronically.4. UTI (urinary tract infection)Status ResolvedA&PRuled out.5. HLD (hyperlipidemia)Status ChronicA&PContinue statin6. Spinal stenosisStatus ChronicA&PContinue with current pain management.7. DepressionStatus ChronicA&PContinue Cymbalta. Continue BuSpar.8. HypothyroidismStatus ChronicA&PContinue levothyroxine.9. HTN (hypertension)Status ChronicA&PContinue lisinopril. Continue hydralazine and Imdur as well as metoprololwhich is increased. Added back Norvasc yesterday.Hypertension type: essential hypertension Qualified Code: I10 - Essential(primary) ebmczhckglmf48. CKD (chronic kidney disease)Status ChronicA&PStable continue to monitor as needed.11. DiabetesStatus ChronicA&PContinue long-acting insulin as well as a CHS with sliding scale coverage.Taper steroids. Blood sugars have not been optimal and will increase long-acting insulin to 10 units subcu daily.12. AnxietyStatus AcuteA&PContinue BuSpar benzodiazepine.13. PVD (peripheral vascular disease)Status ChronicA&PContinue Plavix and statin. Note that patient does have stents.14. DebilityStatus ChronicA&PSupportive care PT OT.15. HypoalbuminemiaStatus ChronicA&PContinue supplements.16. Polysubstance abuseStatus ChronicA&PContinue thiamine folic acid MVI. Avoid narcotics.17. HyperglycemiaStatus AcuteA&PImproved. Taper steroids. Continue insulin coverage.18. T1-T2 SUBACUTE FRACTUREStatus AcuteA&PPT OT. Pain control.19. Anemia of chronic diseaseStatus AcuteA&PWill get B vitamins in a.m. as well as start iron and Protonix. Continue tomonitor for blood loss. Transfuse as needed. Change antibiotic to oral.20. ThrombocytopeniaA&PMonitor.Additional NotesWe will get labs in a.m.Give 1 L of IV fluid today she appears slightly dehydrated. She is feeling abit down today and this is likely due to her discharge disposition plan beingdelayed and she feels quite upset about this.DVT prophylaxis with heparin.GI prophylaxis on PPI to chronic steroid useTime spent 35 minutesPatient failed PT evaluation for home discharge and they feel she requiresshort-term rehab. This is the only option for this patient at this time. Wewill await [facility] short-term rehab bed. This plan is the patient's wishes.Resuscitation status Full codePlan discussed with patientCase discussed with case management specialist, nursing staffDATE SIGNED: 05/30/20 Electronically SignedTIME SIGNED: 1426 CR FAJARDO Name Value Range Interpretation Code Description Data Rosa rce(s) Supporting Document(s) ID Date Data Source [id number] 05/30/2020 11:47:00 AM EDT [facility] jer Name Value Range Interpretation Code Description Data Rosa rce(s) Supporting Document(s) FGLU 325 mg/dL 70-110 H [facility] ID Date Data Source [id number] 05/30/2020 09:55:00 AM EDT [facility] Exam Number: [id number] OF EXAMINATIO N: 05/30/2020 9:04 EDTCHEST SINGLE VIEWHISTORY: WeaknessTECHNIQUE: Single frontal radiograph of chestCOMPARISON: None.FINDINGS:Moderate COPD and interstitial parenchymal scarring is noted. Moreconfluent parenchymal disease in the peripheral aspect of right upperlobe is consistent with pneumonia. In the absence of old CT and plainradiographs this should be followed to complete resolution and can bemore accurately assessed with a CT scan. There are no pleuraleffusions. Cardiomediastinal contours appear normal. There is a rightcentral line in place with is tip in the midsuperior vena cava.IMPRESSION:Confluent parenchymal disease in the right upper lobe just forpneumonia. Follow-up to resolution and or a CT scan of the chest isencouraged.Electronically signed in PS360 by: Tabitha De La Vega M.D. :43 EDT Reported By: - Pramod DE LA VEGA M.D. Signed By: Pramod DE LA VEGA M.D. Name Value Range Interpretation Code Description Data Rosa rce(s) Supporting Document(s) ID Date Data Source [id number] 05/30/2020 10:32:00 AM EDT [facility] Name Value Range Interpretation Code Description Data Rosa rce(s) Supporting Document(s) GLU 285 mg/dL 70-110 H [facility] Patients taking Sulfasalazine may have f alsely depressedGlucose levels. Patients taking Sulfapyridine may havefalsely elevated Glucose levels. Patients should be drawnfor Glucose before the initial administration of eitherdrug. BUN 25 mg/dL 7-23 H [facility] CRE 1.330 mg/dL 0.500-1.300 H [facility] GFR 41 mL/min [facility] CHLORIDE 108 mmol/L 99-110 [facility] NA 141 mmol/L 136-147 [facility] POTASSIUM 4.0 mmol/L 3.5-5.1 [facility] TCO2 29 mmol/L 20-33 N [facility] ANION GAP 8.0 10.0-20.0 L [facility] CA 8.1 mg/dL 8.3-10.7 L [facility] ALKALINE PHOS 170 U/L 45-117 H [facility] TP 5.2 g/dL 6.0-7.8 L [facility] ALB 2.2 g/dL 3.5-5.0 L [facility] ESRD Dialysis patient Albumin reference range: 2.9-4.4 g/dL GL 3.0 g/dL 2.3-3.5 [facility] A/G 0.7 1.0-2.5 L [facility] T. BILIRUBIN 0.3 mg/dL 0.1-1.1 N [facility] [employer] [place] Total Bilirubin is n ot recommended forpatients undergoing treatment with eltrombopag (Promacta)due to the potential for falsely elevated results. ALTI 30 U/L 6-54 [facility] Patients taking Sulfasalazine and/or Sul fapyridine may havefalsely depressed ALT levels. Patients should be drawn forALT before the initial administration of either drug. AST 24 U/L 6-38 [facility] Patients taking Sulfasalazine and/or Sul fapyridine may havefalsely depressed AST levels. Patients should be drawn forAST before the initial administration of either drug. ID Date Data Source [id number] 05/30/2020 06:22:00 AM EDT [facility] Name Value Range Interpretation Code Description Data Rosa rce(s) Supporting Document(s) FGLU 259 mg/dL 70-110 H [facility] ID Date Data Source [id number] 05/29/2020 08:39:00 PM EDT [facility] Name Value Range Interpretation Code Description Data Rosa rce(s) Supporting Document(s) FGLU 314 mg/dL 70-110 H [facility] ID Date Data Source [id number] 05/29/2020 10:01:00 PM EDT [facility] Name Value Range Interpretation Code Description Data Rosa rce(s) Supporting Document(s) FGLU 108 mg/dL 70-110 N [facility] ID Date Data Source [id number] 05/29/2020 01:50:00 PM EDT [address] [id number] NOTEPATIENT NAME: ELA PONCE PHYSICIAN: MICHAEL WANG MDAUTHOR: Selma Caballero. DATE: 05/18/20 MR#: [id number] NOTE DATE: 05/29/20 RM#: [id number] TIME: 1353 : 45SubjectiveEvents Since Last EntryPatient seen and examined today. Chart reviewed. Awaiting rehab placement.No new developments. Labs reviewed and unremarkable. Will need H&H trended atleast weekly. Increase metoprolol to 50 mg p.o. BID for persistenthypotension. Otherwise continue all current medications.Review of SystemsSystems reviewed and negative Constitutional, Integumentary, Eyes, ENT,Respiratory, Cardiovascular, GI, , Aldo, Endocrine, Neurology, Psych, Allergy/ImmunologyMusculoskeletalReports: other (Back pain unchanged).ObjectiveVital SignsVital Signs-24 HRS05/28408 1530 1656 2020 2131Temp 98.1Pulse 78 85Resp 16B/P 181/81 178/80 178/80 172/80B/P MeanPulse Ox 96O2 Delivery Nasal cannulaO2 Flow Rate [id number] 8349 0803 0811 0819Temp 98.5 97.7Pulse 85 92 90 90Resp 17 17B/P 165/75 161/75 187/87 187/87B/P MeanPulse Ox 95 90O2 Delivery Nasal cannulaO2 Flow Rate [id number] 0825TempPulseRespB/P 187/87 187/87B/P MeanPulse OxO2 DeliveryO2 Flow MnhvJyG5Bilqhw/OutputIntake/Output Summary 24 hours05/28 1900 05/29 0700Intake Total 1060 700Output TotalBalance 1060 700Intake, Oral 1060 700Number 2 1BowelMovementsNumber 4 1UnmeasuredVoidsCurrent MedicationsMetoprolol Tartrate (Lopressor) 50 MG BID PO (UNVr)Amlodipine Besylate (Norvasc) 10 MG DAILY POInsulin Detemir (Levemir) 10 UNIT DAILY SUBCUTPantoprazole Sodium (Protonix) 40 MG BID POPrednisone (Orasone) 10 MG DAILY POSenna/Docusate Sodium (Senokot S) 2 TAB QHSPRN PRN POOxycodone HCl (Oxyir) 10 MG Q6HPRN PRN POHeparin Sodium (Porcine) (Heparin Sodium) 5,000 UNIT Q12H SUBCUTFerrous Sulfate (Iron) 325 MG BID POIsosorbide Mononitrate (Imdur) 90 MG DAILY POCyclobenzaprine HCl (Flexeril) 5 MG TID POMorphine Sulfate (Morphine Sulfate) 2 MG Q4HPRN PRN IVHydralazine HCl (Apresoline) 50 MG TID POLevothyroxine Sodium (Synthroid) 75 MCG DAILY PONicotine (Nicoderm) 21 MG DAILY TOPInsulin Aspart (Humalog Insulin) Low dose sliding scaleAC MEAL SUBCUTAtorvastatin Calcium (Lipitor) 40 MG QHS POBuspirone HCl (Buspar) 5 MG BID POChlorhexidine Gluconate (Chlorhexidine Gluconate) 0 BID MMInsulin Aspart (Humalog Insulin) 0 QHS SUBCUTMiscellaneous (Patch off) 1 PAT QHS NAAlbuterol/Ipratropium (Duoneb) 3 ML Q6HWA PRN INHClopidogrel Bisulfate (Plavix) 75 MG DAILY PODuloxetine HCl (Cymbalta) 60 MG DAILY POFolic Acid (Folvite) 1 MG DAILY POLisinopril (Priniv il,Zestril) 40 MG DAILY POMultivitamins (Multivitamin) 1 TAB DAILY POSodium Chloride (Saline Flush Syr(10ML)) 10 ML Q12H IVThiamine HCl (VITAMIN B1) 100 MG DAILY POHeparin Sodium (Porcine) (Heparin syringe) 100 UNIT Q12H IVAcetaminophen (Tylenol) 650 MG Q6HPRN PRN POAcetaminophen (Tylenol) 650 MG Q6HPRN PRN POGlucose (Insta-Glucose) 15 GM DAILY NEEDED PRN POSodium Chloride (Saline Flush Syr(10ML)) 10 ML QIDPRN PRN IVExamGeneral Appearance no acute distress, afebrile, alert, awake, conversantHead atraumatic, normocephalicENT moist mucosal membranesNeck no JVDCardiovascular regular rate, no gallop, no rub, normal heart soundsRespiratory clear to auscultation, no distress, on oxygen, decreased breathsoundsAbdomen soft, non-tender, no distention, normal bowel sounds, no guardingAbdominal quadrantsall normal bowel soundsUrinary no bladder distention, no flank painExtremities no cyanosis, no edema, normal pulses, ecchymosis, Pedal pulses +1bilaterally feet are warm and well perfused.Muscoskeletal full range of motion, normal inspectionNeurological alert, oriented x 3, normal cerebellar functio, normal speech, nomotor deficits, no sensory deficits, CNII-XXII grossly intact, no facialasymmetrySkin AssessmentSkin dry, intact, warmLymphatic no lymphadenopathyPsych/Mental Status mood neutral, no hallucinationsResultsLaboratory DataRecent Labs-24 hours05/287 0500 0515 0605ChemistrySodium (136 - 147 mmol/L) Cancelled 143Potassium (3.5 - 5.1 mmol/L) Cancelled 4.3Chloride (99 - 110 mmol/L) Cancelled 109Serum Bicarbonate (20 - 33 Cancelled 28mmol/L)Anion Gap (10.0 - 20.0) Cancelled 10.3BUN (7 - 23 mg/dL) Cancelled 19Creatinine (0.500 - 1.300 mg/dL) Cancelled 1.140Estimated GFR/1.73 m2 (mL/min) 50Glucose (70 - 110 mg/dL) Cancelled 204 HPOC Glucose (70 - 110 mg/dL) 72 166 H 259 HCalcium (8.3 - 10.7 mg/dL) Cancelled 8.1 LMagnesium (1.6 - 2.6 mg/dL) Cancelled 2.1Total Bilirubin (0.1 - 1.1 mg/dL) Cancelled 0.4AST (6 - 38 U/L) Cancelled 25ALT (6 - 54 U/L) Cancelled 26Alkaline Phosphatase (45 - 117 Cancelled 143 HU/L)C-Reactive Protein (0.00 - 0.49 5.98 Hmg/dL)Total Protein (6.0 - 7.8 g/dL) Cancelled 5.1 LAlbumin (3.5 - 5.0 g/dL) Cancelled 2.3 LGlobulin (2.3 - 3.5 g/dL) Cancelled 2.8Albumin/Globulin Ratio (1.0 - Cancelled 0.8 L2.5)HematologyWBC (4.0 - 10.5 x10E3/uL) Cancelled 12.97 HRBC (4.20 - 5.40 x10E6/uL) Cancelled 2.71 LHgb (12.0 - 16.0 g/dL) Cancelled 8.3 LHct (37.0 - 47.0 %) Cancelled 25.4 LMCV (81.0 - 99.0 fL) Cancelled 93.7MCH (27.0 - 31.0 pg) Cancelled 30.6MCHC (32.7 - 35.6 g/dL) Cancelled 32.7RDW (11.5 - 14.0 %) Cancelled 15.9 HPlt Count (150 - 450 x10E3/uL) Cancelled 157MPV (6.9 - 9.5 fl) 9.8 HImmature Gran % (Auto) (0.1 - 2.0 Cancelled 0.7%)Neut % (Auto) (34 - 64 %) Cancelled 84.9 HLymph % (Auto) (25 - 45 %) Cancelled 7.1 LMono % (Auto) (1.7 - 10.6 %) Cancelled 6.2Eos % (Auto) (0.4 - 7.0 %) Cancelled 0.8Baso % (Auto) (0.1 - 2.0 %) Cancelled 0.3Abs Immat Gran (auto) (0.0 - 0.1 Cancelled 0.16l05P2/uL)Absolute Neuts (auto) (1.2 - 7.6 Cancelled 11.00 Hx10E3/uL)Absolute Lymphs (auto) (1.0 - 3.5 Cancelled 0.92 Lx10E3/uL)Absolute Monos (auto) (0.1 - 1.0 Cancelled 0.12k36J2/uL)Absolute Eos (auto) (0.1 - 0.7 Cancelled 0.45d11D8/uL)Absolute Basos (auto) (0.0 - 0.1 Cancelled 0.11a17I1/uL)Nucleated RBC % (auto) (0 %) 004/509219KcmvlzvjaVES Glucose (70 - 110 mg/dL) 242 HResults Reviewed labs reviewedAssessment/PlanProblem List1. PneumoniaStatus AcutePneumonia type: due to methicillin-resistant Staphylococcus aureus (MRSA)Laterality: unspecified laterality Lung location: unspecified part of lungQualified Code: J15.212 - Pneumonia due to Methicillin resistant Staphylococcusaureus2. Back painStatus Acute3. COPD (chronic obstructive pulmonary disease)Status Acute4. UTI (urinary tract infection)Status Resolved5. HLD (hyperlipidemia)Status Chronic6. Spinal stenosisStatus Chronic7. DepressionStatus Chronic8. HypothyroidismStatus Chronic9. HTN (hypertension)Status ChronicHypertension type: essential hypertension Qualified Code: I10 - Essential(primary) ovepeezhuknn22. CKD (chronic kidney disease)Status Vqepiam72. DiabetesStatus Gtobhvj29. AnxietyStatus Acute13. PVD (peripheral vascular disease)Status Vsqvugm82. DebilityStatus Yyhdoyk04. HypoalbuminemiaStatus Kbehunz22. Polysubstance abuseStatus Ghgqdvd94. HyperglycemiaStatus Acute18. T1-T2 SUBACUTE FRACTUREStatus Acute19. Anemia of chronic diseaseStatus Acute20. ThrombocytopeniaAdditional NotesPLAN1. PneumoniaStatus AcuteA&PPleated course of Augmentin. Continue O2 as per home 3 L all times. Bloodcultures negative. Urine culture negative. Continue to monitor. Nebulizer asneededPneumonia type: due to methicillin-resistant Staphylococcus aureus (MRSA)Laterality: unspecified laterality Lung location: unspecified part of lungQualified Code: J15.212 - Pneumonia due to Methicillin resistant Staphylococcusaureus2. Back painStatus AcuteA&PImproved. Continue to monitor. Blood cultures negative. Continue currentpain medication.3. COPD (chronic obstructive pulmonary disease)Status AcuteA&PWean steroid to home dosing of 10 mg daily. Change to oral antibiotic and hasnow completed the course of Augmentin DuoNebs. Oxygen therapy chronically.4. UTI (urinary tract infection)Status ResolvedA&PRuled out.5. HLD (hyperlipidemia)Status ChronicA&PContinue statin6. Spinal stenosisStatus ChronicA&PContinue with current pain management.7. DepressionStatus ChronicA&PContinue Cymbalta. Continue BuSpar.8. HypothyroidismStatus ChronicA&PContinue levothyroxine.9. HTN (hypertension)Status ChronicA&PContinue lisinopril. Continue hydralazine and Imdur as well as metoprololwhich is increased. Added back Norvasc yesterday.Hypertension type: essential hypertension Qualified Code: I10 - Essential(primary) vjnsvmfhumly23. CKD (chronic kidney disease)Status ChronicA&PStable continue to monitor as needed.11. DiabetesStatus ChronicA&PContinue long-acting insulin as well as a CHS with sliding scale coverage.Taper steroids. Blood sugars have not been optimal and will increase long-acting insulin to 10 units subcu daily.12. AnxietyStatus AcuteA&PContinue BuSpar benzodiazepine.13. PVD (peripheral vascular disease)Status ChronicA&PContinue Plavix and statin. Note that patient does have stents.14. DebilityStatus ChronicA&PSupportive care PT OT.15. HypoalbuminemiaStatus ChronicA&PContinue supplements.16. Polysubstance abuseStatus ChronicA&PContinue thiamine folic acid MVI. Avoid narcotics.17. HyperglycemiaStatus AcuteA &PImproved. Taper steroids. Continue insulin coverage.18. T1-T2 SUBACUTE FRACTUREStatus AcuteA&PPT OT. Pain control.19. Anemia of chronic diseaseStatus AcuteA&PWill get B vitamins in a.m. as well as start iron and Protonix. Continue tomonitor for blood loss. Transfuse as needed. Change antibiotic to oral.20. ThrombocytopeniaA&PMonitor.Additional NotesWe will repeat labs Friday if she is still inpatientDVT prophylaxis with heparin.GI prophylaxis on PPI to chronic steroid useTime spent 35 minutesDis[facility] discharged home if cleared by PTtomorrow.Resuscitation status Full codePlan discussed with patient, sonCase discussed with case management specialist, nursing staffDATE SIGNED: 05/29/20 Electronically SignedTIME SIGNED: [id number] CR FAJARDO Name Value Range Interpretation Code Description Data Rosa rce(s) Supporting Document(s) ID Date Data Source [id number] 05/29/2020 01:29:00 PM EDT [facility] Name Value Range Interpretation Code Description Data Rosa rce(s) Supporting Document(s) FGLU 242 mg/dL 70-110 [facility] ID Date Data Source [id number] 05/29/2020 06:10:00 AM EDT [facility] Name Value Range Interpretation Code Description Data Rosa rce(s) Supporting Document(s) FGLU 259 mg/dL 70-110 H [facility] ID Date Data Source [id number] 05/29/2020 05:58:00 AM EDT [facility] Name Value Range Interpretation Code Description Data Rosa rce(s) Supporting Document(s) C-REACTIVE PROT 5.98 mg/dL 0.00-0.49 H [facility] ID Date Data Source [id number] 05/29/2020 05:58:00 AM EDT [facility] Name Value Range Interpretation Code Description Data Rosa rce(s) Supporting Document(s) MAGNESIUM 2.1 mg/dL 1.6-2.6 N [facility] ID Date Data Source [id number] 05/29/2020 05:58:00 AM EDT [facility] Name Value Range Interpretation Code Description Data Rosa rce(s) Supporting Document(s) GLU 204 mg/dL 70-110 H [facility] Patients taking Sulfasalazine may have f alsely depressedGlucose levels. Patients taking Sulfapyridine may havefalsely elevated Glucose levels. Patients should be drawnfor Glucose before the initial administration of eitherdrug. BUN 19 mg/dL 7-23 [facility] CRE 1.140 mg/dL 0.500-1.300 [facility] GFR 50 mL/min [facility] CHLORIDE 109 mmol/L 99-110 [facility] NA 143 mmol/L 136-147 [facility] POTASSIUM 4.3 mmol/L 3.5-5.1 [facility] TCO2 28 mmol/L 20-33 [facility] ANION GAP 10.3 10.0-20.0 [facility] CA 8.1 mg/dL 8.3-10.7 [facility] ALKALINE PHOS 143 U/L 45-117 [facility] TP 5.1 g/dL 6.0-7.8 [facility] ALB 2.3 g/dL 3.5-5.0 [facility] ESRD Dialysis patient Albumin reference range: 2.9-4.4 g/dL GL 2.8 g/dL 2.3-3.5 [facility] A/G 0.8 1.0-2.5 [facility] T. BILIRUBIN 0.4 mg/dL 0.1-1.1 [facility] [employer] [place] Total Bilirubin is n ot recommended forpatients undergoing treatment with eltrombopag (Promacta)due to the potential for falsely elevated results. ALTI 26 U/L 6-54 [facility] Patients taking Sulfasalazine and/or Sul fapyridine may havefalsely depressed ALT levels. Patients should be drawn forALT before the initial administration of either drug. AST 25 U/L 6-38 [facility] Patients taking Sulfasalazine and/or Sul fapyridine may havefalsely depressed AST levels. Patients should be drawn forAST before the initial administration of either drug. ID Date Data Source [id number] 05/29/2020 05:27:00 AM EDT [facility] Name Value Range Interpretation Code Description Data Rosa rce(s) Supporting Document(s) WBC 12.97 x10E3/uL 4.0-10.5 [facility] 2.71 x10E6/uL 4.20-5.40 [facility] Hemoglobin 8.3 g/dL 12.0-16.0 [facility] Hematocrit 25.4 % 37.0-47.0 [facility] MCV 93.7 fL 81.0-99.0 [facility] MCH 30.6 pg 27.0-31.0 [facility] MCHC 32.7 g/dL 32.7-35.6 [facility] RDW 15.9 % 11.5-14.0 [facility] Platelet count 157 x10E3/uL 150-450 [facility] MPV 9.8 fl 6.9-9.5 [facility] Neutrophils 84.9 % 34-64 [facility] Lymphocytes 7.1 % 25-45 [facility] Monocytes 6.2 % 1.7-10.6 [facility] Eosinophils 0.8 % 0.4-7.0 [facility] Basophils 0.3 % 0.1-2.0 [facility] Imm. Gran. 0.7 % 0.1-2.0 [facility] Abs. Neutro. 11.00 x10E3/uL 1.2-7.6 [facility] Abs. Lymph. 0.92 x10E3/uL 1.0-3.5 [facility] Abs. Curry. 0.81 x10E3/uL 0.1-1.0 [facility] Abs. Eosin. 0.11 x10E3/uL 0.1-0.7 [facility] Abs. Baso. 0.04 x10E3/uL 0.0-0.1 [facility] Abs. Imm. Gran. 0.09 x10E3/uL 0.0-0.1 [facility] ANRBC% 0 % 0 N [facility] ID Date Data Source [id number] 05/28/2020 11:36:00 PM EDT [facility] Name Value Range Interpretation Code Description Data Rosa rce(s) Supporting Document(s) FGLU 166 mg/dL 70-110 H [facility] ID Date Data Source [id number] 05/28/2020 08:24:00 PM EDT [facility] Name Value Range Interpretation Code Description Data Rosa rce(s) Supporting Document(s) FGLU 72 mg/dL 70-110 [facility] ID Date Data Source [id number] 05/28/2020 12:45:00 PM EDT [address] [address]MDUHSEVD NOTEPATIENT NAME: ELA PONCE PHYSICIAN: MICHAEL WANG MDAUTHOR: Selma Caballero. DATE: 05/18/20 MR#: [id number] NOTE DATE: 05/28/20 RM#: [id number] TIME: 1251 : 45SubjectiveEvents Since Last EntryPatient seen and examined today. Chart reviewed. Patient feels well. Nofurther diarrhea. Has completed course of antibiotics. Is steroid dependentwill continue on prednisone 10 mg p.o. daily. Blood pressure has been runninghigh. Restarted Norvasc from home. Labs vital signs otherwise stable.Leukocytosis felt secondary to steroid. No fevers. From a medical perspectiveready for discharge but awaiting swing bed versus discharge to home plan withPT.Review of SystemsSystems reviewed and negative Constitutional, Integumentary, Eyes, ENT,Respiratory, Cardiovascular, GI, , Musculoskeletal, Aldo, Endocrine,Neurology, Psych, Allergy/ImmunologyObjectiveVital SignsVital Signs-24 HRS05/27445 2111 2140 2200 0535Temp 98.3 98.3 98.3Pulse 74 81 76 72Resp 16 17 17B/P 151/64 159/81 151/64 196/79B/P MeanPulse Ox 95 94 94O2 Delivery Nasal cannula Nasal cannulaO2 Flow Rate 2 LITERS [id number] 0782 0815TempPulse 83 83RespB/P 175/78 175/78 175/78B/P MeanPulse OxO2 DeliveryO2 Flow PgwfYvQ7Hisfoy/OutputIntake/Output Summary 24 hours05/27 1900 05/28 0700Intake Total 1240 350Output Total 2Balance 1238 350Intake, Oral 1240 320Intake, Tube 30IrrigantNumber 1IncontinentVoidsNumber 3UnmeasuredVoidsOutput, Stool 2Current MedicationsPrednisone (Orasone) 10 MG DAILY POAmlodipine Besylate (Norvasc) 5 MG DAILY POSenna/Docusate Sodium (Senokot S) 2 TAB QHSPRN PRN POOxycodone HCl (Oxyir) 10 MG Q6HPRN PRN POHeparin Sodium (Porcine) (Heparin Sodium) 5,000 UNIT Q12H SUBCUTFerrous Sulfate (Iron) 325 MG BID POPantoprazole Sodium (Protonix) 40 MG DAILY POInsulin Detemir (Levemir) 6 UNIT DAILY SUBCUTMetoprolol Tartrate (Lopressor) 25 MG BID POIsosorbide Mononitrate (Imdur) 90 MG DAILY POCyclobenzaprine HCl (Flexeril) 5 MG TID POMorphine Sulfate (Morphine Sulfate) 2 MG Q4HPRN PRN IVHydralazine HCl (Apresoline) 50 MG TID POLevothyroxine Sodium (Synthroid) 75 MCG DAILY PONicotine (Nicoderm) 21 MG DAILY TOPInsulin Aspart (Humalog Insulin) Low dose sliding scaleAC MEAL SUBCUTAtorvastatin Calcium (Lipitor) 40 MG QHS POBuspirone HCl (Buspar) 5 MG BID POChlorhexidine Gluconate (Chlorhexidine Gluconate) 0 BID MMInsulin Aspart (Humalog Insulin) 0 QHS SUBCUTMiscellaneous (Patch off) 1 PAT QHS NAAlbuterol/Ipratropium (Duoneb) 3 ML Q6HWA PRN INHClopidogrel Bisulfate (Plavix) 75 MG DAILY PODuloxetine HCl (Cymbalta) 60 MG DAILY POFolic Acid (Folvite) 1 MG DAILY POLisinopril (Prinivil,Zestril) 40 MG DAILY POMultivitamins (Multivitamin) 1 TAB DAILY POSodium Chloride (Saline Flush Syr(10ML)) 10 ML Q12H IVThiamine HCl (VITAMIN B1) 100 MG DAILY POHeparin Sodium (Porcine) (Heparin syringe) 100 UNIT Q12H IVAcetaminophen (Tylenol) 650 MG Q6HPRN PRN POAcetaminophen (Tylenol) 650 MG Q6HPRN PRN POGlucose (Insta-Glucose) 15 GM DAILY NEEDED PRN POSodium Chloride (Saline Flush Syr(10ML)) 10 ML QIDPRN PRN IVExamGeneral Appearance no acute distress, afebrile, alert, awake, conversantHead atraumatic, normocephalicENT moist mucosal membranesNeck no JVDCardiovascular regular rate, no gallop, no rub, normal heart soundsRespiratory clear to auscultation, no distress, on oxygen, de creased breathsoundsAbdomen soft, non-tender, no distention, normal bowel sounds, no guardingAbdominal quadrantsall normal bowel soundsUrinary no bladder distention, no flank painExtremities no cyanosis, no edema, normal pulses, ecchymosis, Pedal pulses +1bilaterally feet are warm and well perfused.Muscoskeletal full range of motion, normal inspectionNeurological alert, oriented x 3, normal cerebellar functio, normal speech, nomotor deficits, no sensory deficits, CNII-XXII grossly intact, no facialasymmetrySkin AssessmentSkin dry, intact, warmLymphatic no lymphadenopathyPsych/Mental Status mood neutral, no hallucinationsResultsLaboratory DataRecent Labs-24 hours05/27/018099 2937 0521ChemistrySodium (136 - 147 mmol/L) 144Potassium (3.5 - 5.1 mmol/L) 4.0Chloride (99 - 110 mmol/L) 109Serum Bicarbonate (20 - 33 mmol/L) 28Anion Gap (10.0 - 20.0) 11.0BUN (7 - 23 mg/dL) 21Creatinine (0.500 - 1.300 mg/dL) 0.956Estimated GFR/1.73 m2 (mL/min) > 60Glucose (70 - 110 mg/dL) 179 HPOC Glucose (70 - 110 mg/dL) 249 H 232 HCalcium (8.3 - 10.7 mg/dL) 8.1 LMagnesium (1.6 - 2.6 mg/dL) 2.0Total Bilirubin (0.1 - 1.1 mg/dL) 0.3AST (6 - 38 U/L) 26ALT (6 - 54 U/L) 30Alkaline Phosphatase (45 - 117 U/L) 149 HC- Reactive Protein (0.00 - 0.49 mg/dL) 3.70 HTotal Protein (6.0 - 7.8 g/dL) 5.2 LAlbumin (3.5 - 5.0 g/dL) 2.4 LGlobulin (2.3 - 3.5 g/dL) 2.8Albumin/Globulin Ratio (1.0 - 2.5) 0.9 LHematologyWBC (4.0 - 10.5 x10E3/uL) 13.52 HRBC (4.20 - 5.40 x10E6/uL) 2.86 LHgb (12.0 - 16.0 g/dL) 8.7 LHct (37.0 - 47.0 %) 26.5 LMCV (81.0 - 99.0 fL) 92.7MCH (27.0 - 31.0 pg) 30.4MCHC (32.7 - 35.6 g/dL) 32.8RDW (11.5 - 14.0 %) 15.8 HPlt Count (150 - 450 x10E3/uL) 157MPV (6.9 - 9.5 fl) 9.8 HImmature Gran % (Auto) (0.1 - 2.0 %) 1.6Neut % (Auto) (34 - 64 %) 84.8 HLymph % (Auto) (25 - 45 %) 5.8 LMono % (Auto) (1.7 - 10.6 %) 6.9Eos % (Auto) (0.4 - 7.0 %) 0.8Baso % (Auto) (0.1 - 2.0 %) 0.1Abs Immat Gran (auto) (0.0 - 0.1 x10E3/uL) 0.21 HAbsolute Neuts (auto) (1.2 - 7.6 x10E3/uL) 11.46 HAbsolute Lymphs (auto) (1.0 - 3.5 x10E3/uL) 0.79 LAbsolute Monos (auto) (0.1 - 1.0 x10E3/uL) 0.93Absolute Eos (auto) (0.1 - 0.7 x10E3/uL) 0.11Absolute Basos (auto) (0.0 - 0.1 x10E3/uL) 0.02Nucleated RBC % (auto) (0 %) 0.1Results Reviewed labs reviewedAssessment/PlanProblem List1. PneumoniaStatus AcutePneumonia type: due to methicillin-resistant Staphylococcus aureus (MRSA)Laterality: unspecified laterality Lung location: unspecified part of lungQualified Code: J15.212 - Pneumonia due to Methicillin resistant Staphylococcusaureus2. Back painStatus Acute3. COPD (chronic obstructive pulmonary disease)Status Acute4. UTI (urinary tract infection)Status Resolved5. HLD (hyperlipidemia)Status Chronic6. Spinal stenosisStatus Chronic7. DepressionStatus Chronic8. HypothyroidismStatus Chronic9. HTN (hypertension)Status ChronicHypertension type: essential hypertension Qualified Code: I10 - Essential(primary) lagqndhoklhq01. CKD (chronic kidney disease)Status Hcfxrst48. DiabetesStatus Mnpilnd91. AnxietyStatus Acute13. PVD (peripheral vascular disease)Status Yprkeux63. DebilityStatus Xfbyjmz99. HypoalbuminemiaStatus Zlfybri40. Polysubstance abuseStatus Cuzhqjl64. HyperglycemiaStatus Acute18. T1-T2 SUBACUTE FRACTUREStatus Acute19. Anemia of chronic diseaseStatus Acute20. ThrombocytopeniaAdditional Notes1. PneumoniaStatus AcuteA&PPleated course of Augmentin. Continue O2 as per home 3 L all times. Bloodcultures negative. Urine culture negative. Continue to monitor. Nebulizer asneededPneumonia type: due to methicillin-resistant Staphylococcus aureus (MRSA)Laterality: unspecified laterality Lung location: unspecified part of lungQualified Code: J15.212 - Pneumonia due to Methicillin resistant Staphylococcusaureus2. Back painStatus AcuteA&PImproved. Continue to monitor. Blood cultures negative. Continue currentpain medication.3. COPD (chronic obstructive pulmonary disease)Status AcuteA&PWean steroid to home dosing of 10 mg daily. Change to oral antibiotic and hasnow completed the course of Augmentin DuoNebs. Oxygen therapy chronically.4. UTI (urinary tract infection)Status ResolvedA&PRuled out.5. HLD (hyperlipidemia)Status ChronicA&PContinue statin6. Spinal stenosisStatus ChronicA&PContinue with current pain management.7. DepressionStatus ChronicA&PContinue Cymbalta. Continue BuSpar.8. HypothyroidismStatus ChronicA&PContinue levothyroxine.9. HTN (hypertension)Status ChronicA&PContinue lisinopril. Continue hydralazine and Imdur as well as metoprolol.Added back Norvasc.Hypertension type: essential hypertension Qualified Code: I10 - Essential(primary) qjmdjfuamvds34. CKD (chronic kidney disease)Status ChronicA&PStable continue to monitor as needed.11. DiabetesStatus ChronicA&PContinue long-acting insulin as well as a CHS with sliding scale coverage.Taper steroids. Blood sugars have not been optimal and will increase long-acting insulin to 10 units subcu daily.12. AnxietyStatus AcuteA&PContinue BuSpar benzodiazepine.13. 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 Note that patient does have stents.14. DebilityStatus ChronicA&PSupportive care PT OT.15. HypoalbuminemiaStatus ChronicA&PContinue supplements.16. Polysubstance abuseStatus ChronicA&PContinue thiamine folic acid MVI. Avoid narcotics.17. HyperglycemiaStatus AcuteA&PImproved. Taper steroids. Continue insulin coverage.18. T1-T2 SUBACUTE FRACTUREStatus AcuteA&PPT OT. Pain control.19. Anemia of chronic diseaseStatus AcuteA&PWill get B vitamins in a.m. as well as start iron and Protonix. Continue tomonitor for blood loss. Transfuse as needed. Change antibiotic to oral.20. ThrombocytopeniaA&PMonitor.Additional NotesWe will repeat labs Friday morning as they have been stableDVT prophylaxis with heparin.GI prophylaxis on PPI to chronic steroid useTime spent 35 minutesDis[facility] discharged home if cleared by PTtomorrow.Resuscitation status Full codePlan discussed with patient, sonCase discussed with case management specialist, nursing staffDATE SIGNED: 05/28/20 Electronically SignedTIME SIGNED: 1251 CR FAJARDO Name Value Range Interpretation Code Description Data Rosa rce(s) Supporting Document(s) ID Date Data Source [id number] 05/28/2020 01:19:00 PM EDT [facility] Name Value Range Interpretation Code Description Data Rosa rce(s) Supporting Document(s) FGLU 125 mg/dL 70-110 H [facility] ID Date Data Source [id number] 05/28/2020 08:34:00 AM EDT [facility] Name Value Range Interpretation Code Description Data Rosa rce(s) Supporting Document(s) FGLU 232 mg/dL 70-110 [facility] ID Date Data Source [id number] 05/28/2020 06:17:00 AM EDT [facility] [place] Name Value Range Interpretation Code Description Data Rosa rce(s) Supporting Document(s) MAGNESIUM 2.0 mg/dL 1.6-2.6 [facility] ID Date Data Source [id number] 05/28/2020 06:17:00 AM EDT [facility] [place] jer Name Value Range Interpretation Code Description Data Rosa rce(s) Supporting Document(s) C-REACTIVE PROT 3.70 mg/dL 0.00-0.49 [facility] ID Date Data Source [id number] 05/28/2020 06:17:00 AM EDT [facility] jer Name Value Range Interpretation Code Description Data Rosa rce(s) Supporting Document(s) GLU 179 mg/dL 70-110 [facility] Patients taking Sulfasalazine may have f alsely depressedGlucose levels. Patients taking Sulfapyridine may havefalsely elevated Glucose levels. Patients should be drawnfor Glucose before the initial administration of eitherdrug. BUN 21 mg/dL 7-23 [facility] CRE 0.956 mg/dL 0.500-1.300 [facility] GFR > 60 mL/min [facility] CHLORIDE 109 mmol/L 99-110 [facility] NA 144 mmol/L 136-147 [facility] POTASSIUM 4.0 mmol/L 3.5-5.1 [facility] TCO2 28 mmol/L 20-33 [facility] ANION GAP 11.0 10.0-20.0 [facility] CA 8.1 mg/dL 8.3-10.7 [facility] ALKALINE PHOS 149 U/L 45-117 [facility] TP 5.2 g/dL 6.0-7.8 [facility] ALB 2.4 g/dL 3.5-5.0 [facility] ESRD Dialysis patient Albumin reference range: 2.9-4.4 g/dL GL 2.8 g/dL 2.3-3.5 [facility] A/G 0.9 1.0-2.5 [facility] T. BILIRUBIN 0.3 mg/dL 0.1-1.1 [facility] [employer] [place] Total Bilirubin is n ot recommended forpatients undergoing treatment with eltrombopag (Promacta)due to the potential for falsely elevated results. ALTI 30 U/L 6-54 [facility] Patients taking Sulfasalazine and/or Sul fapyridine may havefalsely depressed ALT levels. Patients should be drawn forALT before the initial administration of either drug. AST 26 U/L 6-38 [facility] Patients taking Sulfasalazine and/or Sul fapyridine may havefalsely depressed AST levels. Patients should be drawn forAST before the initial administration of either drug. ID Date Data Source [id number] 05/28/2020 05:00:00 AM EDT [facility] Name Value Range Interpretation Code Description Data Rosa rce(s) Supporting Document(s) WBC 13.52 x10E3/uL 4.0-10.5 [facility] RBC 2.86 x10E6/uL 4.20-5.40 [facility] Hemoglobin 8.7 g/dL 12.0-16.0 [facility] Hematocrit 26.5 % 37.0-47.0 [facility] MCV 92.7 fL 81.0-99.0 N [facility] MCH 30.4 pg 27.0-31.0 [facility] MCHC 32.8 g/dL 32.7-35.6 [facility] RDW 15.8 % 11.5-14.0 [facility] Platelet count 157 x10E3/uL 150-450 [facility] MPV 9.8 fl 6.9-9.5 [facility] Neutrophils 84.8 % 34-64 [facility] Lymphocytes 5.8 % 25-45 [facility] Monocytes 6.9 % 1.7-10.6 [facility] Eosinophils 0.8 % 0.4-7.0 [facility] Basophils 0.1 % 0.1-2.0 [facility] Imm. Gran. 1.6 % 0.1-2.0 [facility] Abs. Neutro. 11.46 x10E3/uL 1.2-7.6 [facility] Abs. Lymph. 0.79 x10E3/uL 1.0-3.5 [facility] Abs. Curry. 0.93 x10E3/uL 0.1-1.0 [facility] Abs. Eosin. 0.11 x10E3/uL 0.1-0.7 [facility] Abs. Baso. 0.02 x10E3/uL 0.0-0.1 [facility] Abs. Imm. Gran. 0.21 x10E3/uL 0.0-0.1 [facility] ANRBC% 0.1 % 0 [facility] ID Date Data Source [id number] 05/27/2020 09:58:00 PM EDT [facility] Name Value Range Interpretation Code Description Data Rosa rce(s) Supporting Document(s) FGLU 249 mg/dL 70-110 [facility] ID Date Data Source [id number] 05/27/2020 01:53:00 PM EDT [facility] [address] [id number] NOTEPATIENT NAME: ALFREDO PONCENCHE BATTENDING PHYSICIAN: MICHAEL WANG, MDAUTHOR: Selma Caballero. DATE: 05/18/20 MR#: [id number] NOTE DATE: 05/27/20 RM#: [id number] TIME: 1356 : 45SubjectiveEvents Since Last EntryPatient seen and examined today. Chart reviewed. Patient was having somediarrhea last night but received cathartics yesterday. She has only had 2 BMsso far today. She feels fine otherwise. No other complaints. B vitaminswithin normal limits. Hemoglobin improved. No new development. [facility]waiting [facility]. Discussed plan of care with son at the patient's request.Review of SystemsSystems reviewed and negative Constitutional, Integumentary, Eyes, ENT,Respiratory, Cardiovascular, , Musculoskeletal, [place], Endocrine, Neurology,Psych, Allergy/ImmunologyGastrointestinalReports: diarrhea (Improved).ObjectiveVital SignsVital Signs-24 HRS05/[id number] 8916 2225 0600Temp 98.3 98.6Pulse 90 89 90Resp 16 16B/P 164/75 164/75 160/88B/P MeanPulse Ox 95 94O2 Delivery Nasal cannula Nasal cannula Nasal cannulaO2 Flow Rate 3L 2 [id number] 3180 0842 0842TempPulse 96 96RespB/P 149/72 149/72 149/72B/P MeanPulse OxO2 Delivery Nasal cannulaO2 Flow Rate 2 [id number]/OutputIntake/Output Summary 24 hours05/26 1900 05/27 0700Intake Total 1200 150Output Total 801 2Balance 399 148Intake, IV 30Intake, Oral 1200 120Number 1UnmeasuredVoidsOutput, Stool 1 2Output, Urine 800Current MedicationsSenna/Docusate Sodium (Senokot S) 2 TAB QHSPRN PRN POPrednisone (Orasone) 10 MG DAILY POOxycodone HCl (Oxyir) 10 MG Q6HPRN PRN POAmoxicillin/Clavulanate Potassium (Augmentin 875) 875 MG BID POHeparin Sodium (Porcine) (Heparin Sodium) 5,000 UNIT Q12H SUBCUTFerrous Sulfate (Iron) 325 MG BID POPantoprazole Sodium (Protonix) 40 MG DAILY POInsulin Detemir (Levemir) 6 UNIT DAILY SUBCUTMetoprolol Tartrate (Lopressor) 25 MG BID POIsosorbide Mononitrate (Imdur) 90 MG DAILY POCyclobenzaprine HCl (Flexeril) 5 MG TID POMorphine Sulfate (Morphine Sulfate) 2 MG Q4HPRN PRN IVHydralazine HCl (Apresoline) 50 MG TID POLevothyroxine Sodium (Synthroid) 75 MCG DAILY PONicotine (Nicoderm) 21 MG DAILY TOPInsulin Aspart (Humalog Insulin) Low dose sliding scaleAC MEAL SUBCUTAtorvastatin Calcium (Lipitor) 40 MG QHS POBuspirone HCl (Buspar) 5 MG BID POChlorhexidine Gluconate (Chlorhexidine Gluconate) 0 BID MMInsulin Aspart (Humalog Insulin) 0 QHS SUBCUTMiscellaneous (Patch off) 1 PAT QHS NAAlbuterol/Ipratropium (Duoneb) 3 ML Q6HWA PRN INHClopidogrel Bisulfate (Plavix) 75 MG DAILY PODuloxetine HCl (Cymbalta) 60 MG DAILY POFolic Acid (Folvite) 1 MG DAILY POLisinopril (Prinivil,Zestril) 40 MG DAILY POMultivitamins (Multivitamin) 1 TAB DAILY POSodium Chloride (Saline Flush Syr(10ML)) 10 ML Q12H IVThiamine HCl (VITAMIN B1) 100 MG DAILY POHeparin Sodium (Porcine) (Heparin syringe) 100 UNIT Q12H IVAcetaminophen (Tylenol) 650 MG Q6HPRN PRN POAcetaminophen (Tylenol) 650 MG Q6HPRN PRN POGlucose (Insta-Glucose) 15 GM DAILY NEEDED PRN POSodium Chloride (Saline Flush Syr(10ML)) 10 ML QIDPRN PRN IVExamGeneral Appearance no acute distress, afebrile, alert, awake, conversantHead atraumatic, normocephalicENT moist mucosal membranesNeck no JVDCardiovascular regular rate, no gallop, no rub, normal heart soundsRespiratory clear to auscultation (anteriorly), no distress, on oxygen,decreased breath soundsAbdomen soft, non-tender, no distention, normal bowel sounds, no guardingAbdominal quadrantsall normal bowel soundsUrinary no bladder distention, no flank painExtremities no cyanosis, no edema, normal pulses, ecchymosisMuscoskeletal full range of motion, normal inspectionNeurological alert, oriented x 3, normal cerebellar functio, normal speech, nomotor deficits, no sensory deficits, CNII-XXII grossly intact, no facialasymmetrySkin AssessmentSkin dry, intact, warmLymphatic no lymphadenopat hyPsych/Mental Status mood neutral, no hallucinationsResultsLaboratory DataRecent Labs-24 hours05/26 0559 0625ChemistrySodium (136 - 147 mmol/L) 142Potassium (3.5 - 5.1 mmol/L) 3.7Chloride (99 - 110 mmol/L) 106Serum Bicarbonate (20 - 33 mmol/L) 28Anion Gap (10.0 - 20.0) 11.7BUN (7 - 23 mg/dL) 19Creatinine (0.500 - 1.300 mg/dL) 0.826Estimated GFR/1.73 m2 (mL/min) > 60Glucose (70 - 110 mg/dL) 170 HPOC Glucose (70 - 110 mg/dL) 107 253 H 164 HCalcium (8.3 - 10.7 mg/dL) 8.5Magnesium (1.6 - 2.6 mg/dL) 2.1Total Bilirubin (0.1 - 1.1 mg/dL) 0.5AST (6 - 38 U/L) 29ALT (6 - 54 U/L) 33Alkaline Phosphatase (45 - 117 U/L) 141 HC-Reactive Protein (0.00 - 0.49 mg/dL) 5.35 HTotal Protein (6.0 - 7.8 g/dL) 5.5 LAlbumin (3.5 - 5.0 g/dL) 2.4 LGlobulin (2.3 - 3.5 g/dL) 3.1Albumin/Globulin Ratio (1.0 - 2.5) 0.8 LHematologyWBC (4.0 - 10.5 x10E3/uL) 12.20 HRBC (4.20 - 5.40 x10E6/uL) 2.96 LHgb (12.0 - 16.0 g/dL) 9.0 LHct (37.0 - 47.0 %) 26.9 LMCV (81.0 - 99.0 fL) 90.9MCH (27.0 - 31.0 pg) 30.4MCHC (32.7 - 35.6 g/dL) 33.5RDW (11.5 - 14.0 %) 15.6 HPlt Count (150 - 450 x10E3/uL) 153MPV (6.9 - 9.5 fl) 9.8 HImmature Gran % (Auto) (0.1 - 2.0 %) 1.4Neut % (Auto) (34 - 64 %) 85.1 HLymph % (Auto) (25 - 45 %) 5.9 LMono % (Auto) (1.7 - 10.6 %) 6.6Eos % (Auto) (0.4 - 7.0 %) 0.8Baso % (Auto) (0.1 - 2.0 %) 0.2Abs Immat Gran (auto) (0.0 - 0.1 x10E3/uL) 0.17 HAbsolute Neuts (auto) (1.2 - 7.6 x10E3/uL) 10.39 HAbsolute Lymphs (auto) (1.0 - 3.5 x10E3/uL) 0.72 LAbsolute Monos (auto) (0.1 - 1.0 x10E3/uL) 0.80Absolute Eos (auto) (0.1 - 0.7 x10E3/uL) 0.10Absolute Basos (auto) (0.0 - 0.1 x10E3/uL) 0.02Nucleated RBC % (auto) (0 %) 004/282682KwlmjvjnuKhjxtkz B12 (193 - 986 pg/mL) 677.0Folic Acid (3.1 - 17.5 ng/mL) 20.9 HResults Reviewed labs reviewedAssessment/PlanProblem List1. PneumoniaStatus AcutePneumonia type: due to methicillin-resistant Staphylococcus aureus (MRSA)Laterality: unspecified laterality Lung location: unspecified part of lungQualified Code: J15.212 - Pneumonia due to Methicillin resistant Staphylococcusaureus2. Back painStatus Acute3. COPD (chronic obstructive pulmonary disease)Status Acute4. UTI (urinary tract infection)Status Resolved5. HLD (hyperlipidemia)Status Chronic6. Spinal stenosisStatus Chronic7. DepressionStatus Chronic8. HypothyroidismStatus Chronic9. HTN (hypertension)Status ChronicHypertension type: essential hypertension Qualified Code: I10 - Essential(primary) bdslsndwucvm33. CKD (chronic kidney disease)Status Ckufpbb53. DiabetesStatus Vyngoma92. AnxietyStatus Acute13. PVD (peripheral vascular disease)Status Tegoggb02. DebilityStatus Ilhezou02. HypoalbuminemiaStatus Zldklgs28. Polysubstance abuseStatus Yexrkly38. HyperglycemiaStatus Acute18. T1-T2 SUBACUTE FRACTUREStatu s Acute19. Anemia of chronic diseaseStatus Acute20. ThrombocytopeniaAdditional Notes1. PneumoniaStatus AcuteA&PWe will switch to Augmentin to complete a course of 10 days. Continue O2.Blood cultures negative. Urine culture negative. Continue to monitor.Nebulizer as neededPneumonia type: due to methicillin- resistant Staphylococcus aureus (MRSA)Laterality: unspecified laterality Lung location: unspecified part of lungQualified Code: J15.212 - Pneumonia due to Methicillin resistant Staphylococcusaureus2. Back painStatus AcuteA&PImproved. Continue to monitor. Blood cultures negative. Continue currentpain medication.3. COPD (chronic obstructive pulmonary disease)Status AcuteA&PWean steroid. Change to oral antibiotic to complete course. DuoNebs. Oxygentherapy chronically.4. UTI (urinary tract infection)Status ResolvedA&PRuled out.5. HLD (hyperlipidemia)Status ChronicA&PContinue statin6. Spinal stenosisStatus ChronicA&PContinue with current pain management.7. DepressionStatus ChronicA&PContinue Cymbalta. Continue BuSpar.8. HypothyroidismStatus ChronicA&PContinue levothyroxine.9. HTN (hypertension)Status ChronicA&PContinue lisinopril. Continue hydralazine and Imdur as well as metoprolol.Hypertension type: essential hypertension Qualified Code: I10 - Essential(primary) hexrfkewthja20. CKD (chronic kidney disease)Status ChronicA&PStable continue to monitor as needed.11. DiabetesStatus ChronicA&PContinue long-acting insulin as well as a CHS with sliding scale coverage.Taper steroids.12. AnxietyStatus AcuteA&PContinue BuSpar benzodiazepine.13. PVD (peripheral vascular disease)Status ChronicA&PContinue Plavix and statin. Note that patient does have a stent.14. DebilityStatus ChronicA&PSupportive care PT OT.15. HypoalbuminemiaStatus ChronicA&PContinue supplements.16. Polysubstance abuseStatus ChronicA&PContinue thiamine folic acid MVI. Avoid narcotics.17. HyperglycemiaStatus AcuteA&PImproved. Taper steroids. Continue insulin coverage.18. T1-T2 SUBACUTE FRACTUREStatus AcuteA&PPT OT. Pain control.19. Anemia of chronic diseaseStatus AcuteA&PWill get B vitamins in a.m. as well as start iron and Protonix. Continue tomonitor for blood loss. Transfuse as needed. Change antibiotic to oral.20. ThrombocytopeniaA&PMonitor.Additional NotesWe will repeat labs Friday morning as they have been stableDVT prophylaxis with heparin.GI prophylaxis on PPI to chronic steroid useTime spent [facility]Dis[facility]Res[facility] status Full codePlan discussed with patient, sonCase discussed with case management specialist, nursing staffDATE SIGNED: 05/27/20 Electronically SignedTIME SIGNED: [id number] CR FAJARDO Name Value Range Interpretation Code Description Data Rosa rce(s) Supporting Document(s) ID Date Data Source [id number] 05/28/2020 07:03:00 AM EDT [facility] Name Value Range Interpretation Code Description Data Rosa rce(s) Supporting Document(s) FGLU 213 mg/dL 70-110 H [facility] ID Date Data Source [id number] 05/27/2020 09:56:00 AM EDT [facility] jer Name Value Range Interpretation Code Description Data Rosa rce(s) Supporting Document(s) FOLATE 20.9 ng/mL 3.1-17.5 H [facility] ID Date Data Source [id number] 05/27/2020 09:56:00 AM EDT [facility] [place] jer Name Value Range Interpretation Code Description Data Rosa rce(s) Supporting Document(s) VITAMIN B12 677.0 pg/mL 193-986 N [facility] ID Date Data Source [id number] 05/27/2020 07:26:00 [facility] Interpretation Code Description Data Rosa rce(s) Supporting Document(s) WBC 12.20 x10E3/uL 4.0-10.5 [facility] RBC 2.96 x10E6/uL 4.20-5.40 L [facility] Hemoglobin 9.0 g/dL 12.0-16.0 L [facility] Hematocrit 26.9 % 37.0-47.0 L [facility] MCV 90.9 fL 81.0-99.0 N [facility] MCH 30.4 pg 27.0-31.0 N [facility] MCHC 33.5 g/dL 32.7-35.6 [facility] RDW 15.6 % 11.5-14.0 H [facility] Platelet count 153 x10E3/uL 150-450 N [facility] ital MPV 9.8 fl 6.9-9.5 H [facility] Neutrophils 85.1 % 34-64 H [facility] Lymphocytes 5.9 % 25-45 L [facility] Monocytes 6.6 % 1.7-10.6 N [facility] Eosinophils 0.8 % 0.4-7.0 N [facility] Basophils 0.2 % 0.1-2.0 N [facility] Imm. Gran. 1.4 % 0.1-2.0 [facility] Abs. Neutro. 10.39 x10E3/uL 1.2-7.6 [facility] Abs. Lymph. 0.72 x10E3/uL 1.0-3.5 [facility] Abs. Curry. 0.80 x10E3/uL 0.1-1.0 [facility] Abs. Eosin. 0.10 x10E3/uL 0.1-0.7 [facility] Abs. Baso. 0.02 x10E3/uL 0.0-0.1 [facility] Abs. Imm. Gran. 0.17 x10E3/uL 0.0-0.1 [facility] ANRBC% 0 % 0 [facility] ID Date Data Source [id number] 05/27/2020 07:23:00 AM EDT [facility] Name Value Range Interpretation Code Description Data Rosa rce(s) Supporting Document(s) C-REACTIVE PROT 5.35 mg/dL 0.00-0.49 H [facility] ID Date Data Source [id number] 05/27/2020 07:23:00 AM [facility] Value Range Interpretation Code Description Data Rosa rce(s) Supporting Document(s) MAGNESIUM 2.1 mg/dL 1.6-2.6 [facility] ID Date Data Source [id number] 05/27/2020 07:23:00 AM EDT [facility] Name Value Range Interpretation Code Description Data Rosa rce(s) Supporting Document(s) GLU 170 mg/dL 70-110 H [facility] Patients taking Sulfasalazine may have f alsely depressedGlucose levels. Patients taking Sulfapyridine may havefalsely elevated Glucose levels. Patients should be drawnfor Glucose before the initial administration of eitherdrug. BUN 19 mg/dL 7-23 [facility] CRE 0.826 mg/dL 0.500-1.300 [facility] GFR > 60 mL/min [facility] CHLORIDE 106 mmol/L 99-110 [facility] NA 142 mmol/L 136-147 [facility] POTASSIUM 3.7 mmol/L 3.5-5.1 [facility] TCO2 28 mmol/L 20-33 [facility] ANION GAP 11.7 10.0-20.0 [facility] CA 8.5 mg/dL 8.3-10.7 [facility] ALKALINE PHOS 141 U/L 45-117 H [facility] TP 5.5 g/dL 6.0-7.8 [facility] ALB 2.4 g/dL 3.5-5.0 [facility] ESRD Dialysis patient Albumin reference range: 2.9-4.4 g/dL GL 3.1 g/dL 2.3-3.5 [facility] A/G 0.8 1.0-2.5 [facility] T. BILIRUBIN 0.5 mg/dL 0.1-1.1 [facility] [employer] [place] Total Bilirubin is n ot recommended forpatients undergoing treatment with eltrombopag (Promacta)due to the potential for falsely elevated results. ALTI 33 U/L 6-54 [facility] Patients taking Sulfasalazine and/or Sul fapyridine may havefalsely depressed ALT levels. Patients should be drawn forALT before the initial administration of either drug. AST 29 U/L 6-38 [facility] Patients taking Sulfasalazine and/or Sul fapyridine may havefalsely depressed AST levels. Patients should be drawn forAST before the initial administration of either drug. ID Date Data Source [id number] 05/27/2020 07:35:00 AM EDT [facility] Name Value Range Interpretation Code Description Data Rosa rce(s) Supporting Document(s) FGLU 164 mg/dL 70-110 [facility] ID Date Data Source [id number] 05/27/2020 08:30:00 AM EDT [facility] Name Value Range Interpretation Code Description Data Rosa rce(s) Supporting Document(s) FGLU 253 mg/dL 70-110 [facility] ID Date Data Source [id number] 05/26/2020 07:38:00 PM EDT [facility] Name Value Range Interpretation Code Description Data Rosa rce(s) Supporting Document(s) FGLU 107 mg/dL 70-110 [facility] ID Date Data Source [id number] 05/26/2020 02:50:00 PM EDT [facility] Name Value Range Interpretation Code Description Data Rosa rce(s) Supporting Document(s) FGLU 210 mg/dL 70-110 [facility] ID Date Data Source [id number] 05/26/2020 10:58:00 AM EDT [facility] [address] [id number] NOTEPATIENT NAME: ELA PONCE PHYSICIAN: MICHAEL WANG, MDAUTHOR: Selma Caballero. DATE: 05/18/20 MR#: [id number] NOTE DATE: 05/26/20 RM#: [id number] TIME: 1112 : 45SubjectiveEvents Since Last EntryPatient seen and examined today. Chart reviewed. [facility] and antibiotic therapyhowever no bed is available today. Hemoglobin is down slightly and she wasstarted on ferrous sulfate with the antiacid agent. This may be secondary tounderlying infection as well as broad-spectrum antibiotic bone marrowsuppression. She has had no clear clinical blood loss. Leukocytosis isimproved. Slight thrombocytopenia noted. Labs are otherwise essentiallyunremarkable.Review of SystemsSystems reviewed and negative Constitutional, Integumentary, Eyes, ENT,Respiratory, Cardiovascular, GI, , Musculoskeletal, [place], Endocrine,Neurology, Psych, Allergy/ImmunologyObjectiveVital SignsVital Signs-24 HRS05/25830363 7166 1800 202 2102Temp 99.5 97.6 98.0Pulse 94 86 95 87 85Resp 17B/P 172/69 168/69 149/71 163/76 163/73B/P MeanPulse Ox 96 96 97O2 Delivery Nasal cannula Nasal cannula Nasal cannulaO2 Flow Rate 1L 3L 1HCbL81805/25706678 1451 0521 0908 0908Temp 97.9 97.7Pulse 73 79 79Resp 18 17B/P 163/78 161/77 161/77 161/77B/P MeanPulse Ox 97 94O2 Delivery Nasal cannula Nasal cannula Nasal cannulaO2 Flow Rate 2 2 1NgO478/26 05/083071 0953Temp 98.0Pulse 79 86Resp 20B/P 161/77 164/78B/P MeanPulse Ox 97O2 Delivery Nasal cannulaO2 Flow Rate 7XSyX8Fyhpfu/OutputIntake/Output Summary 24 hours15 1900 05/26 0700Intake Total 2300 240Output TotalBalance 2300 240Intake, Blood 320ProductIntake, IV 300Intake, Oral 1680 240Number 5 4UnmeasuredVoidsCurrent MedicationsFerrous Sulfate (Iron) 325 MG BID PO (UNVr)Pantoprazole Sodium (Protonix) 40 MG DAILY PO (UNVr)Insulin Detemir (Levemir) 6 UNIT DAILY SUBCUTMetoprolol Tartrate (Lopressor) 25 MG BID POPiperacillin Sod/Tazobactam Sod (Zosyn) 3.375 GM Q6H IVIsosorbide Mononitrate (Imdur) 90 MG DAILY POPrednisone (Orasone) 20 MG DAILY POSenna/Docusate Sodium (Senokot S) 2 TAB QHS POCyclobenzaprine HCl (Flexeril) 5 MG TID POMorphine Sulfate (Morphine Sulfate) 2 MG Q4HPRN PRN IVOxycodone HCl (Oxyir) 10 MG Q6HPRN PRN POHydralazine HCl (Apresoline) 50 MG TID POLevothyroxine Sodium (Synthroid) 75 MCG DAILY PONicotine (Nicoderm) 21 MG DAILY TOPInsulin Aspart (Humalog Insulin) Low dose sliding scaleAC MEAL SUBCUTAtorvastatin Calcium (Lipitor) 40 MG QHS POBuspirone HCl (Buspar) 5 MG BID POChlorhexidine Gluconate (Chlorhexidine Gluconate) 0 BID MMInsulin Aspart (Humalog Insulin) 0 QHS SUBCUTMiscellaneous (Patch off) 1 PAT QHS NAAlbuterol/Ipratropium (Duoneb) 3 ML Q6HWA PRN INHClopidogrel Bisulfate (Plavix) 75 MG DAILY PODuloxetine HCl (Cymbalta) 60 MG DAILY POFolic Acid (Folvite) 1 MG DAILY POLisinopril (Prinivil,Zestril) 40 MG DAILY POMultivitamins (Multivitamin) 1 TAB DAILY POSodium Chloride (Saline Flush Syr(10ML)) 10 ML Q12H IVThiamine HCl (VITAMIN B1) 100 MG DAILY POHeparin Sodium (Porcine) (Heparin Sodium) 5,000 UNIT Q8H SUBCUTHeparin Sodium (Porcine) (Heparin syringe) 100 UNIT Q12H IVAcetaminophen (Tylenol) 650 MG Q6HPRN PRN POAcetaminophen (Tylenol) 650 MG Q6HPRN PRN POGlucose (Insta-Glucose) 15 GM DAILY NEEDED PRN POSodium Chloride (Saline Flush Syr(10ML)) 10 ML QIDPRN PRN IVExamGeneral Appearance no acute distress, afebrile, alert, awake, conversantHead atraumatic, normocephalicENT moist mucosal membranesNeck no JVDCardiovascular regular rate, no gallop, no rub, normal heart soundsRespiratory clear to auscultation (anteriorly), no distress, on oxygen,dec reased breath soundsAbdomen soft, non-tender, no distention, normal bowel sounds, no guardingAbdominal quadrantsall normal bowel soundsUrinary no bladder distention, no flank painExtremities no cyanosis, no edema, normal pulses, ecchymosisMuscoskeletal full range of motion, normal inspectionNeurological alert, oriented x 3, normal cerebellar functio, normal speech, nomotor deficits, no sensory deficits, CNII-XXII grossly intact, no facialasymmetrySkin AssessmentSkin dry, warmLymphatic no lymphadenopathyPsych/Mental Status mood neutral, no hallucinationsResultsLaboratory DataRecent Labs-24 hours05/25861359 5944 1755 2022ChemistryPOC Glucose (70 - 110 mg/dL) 175 H 162 H 166 HHematologyHgb (12.0 - 16.0 g/dL) 8.9 LHct (37.0 - 47.0 %) 26.3 L05/26740965 0538ChemistrySodium (136 - 147 mmol/L) 144Potassium (3.5 - 5.1 mmol/L) 3.7Chloride (99 - 110 mmol/L) 108Serum Bicarbonate (20 - 33 mmol/L) 29Anion Gap (10.0 - 20.0) 10.7BUN (7 - 23 mg/dL) 17Creatinine (0.500 - 1.300 mg/dL) 0.891Estimated GFR/1.73 m2 (mL/min) > 60Glucose (70 - 110 mg/dL) 116 HPOC Glucose (70 - 110 mg/dL) 127 HCalcium (8.3 - 10.7 mg/dL) 8.2 LMagnesium (1.6 - 2.6 mg/dL) 1.9Total Bilirubin (0.1 - 1.1 mg/dL) 0.4AST (6 - 38 U/L) 25ALT (6 - 54 U/L) 28Alkaline Phosphatase (45 - 117 U/L) 129 HC-Reactive Protein (0.00 - 0.49 mg/dL) 3.59 HTotal Protein (6.0 - 7.8 g/dL) 5.1 LAlbumin (3.5 - 5.0 g/dL) 2.2 LGlobulin (2.3 - 3.5 g/dL) 2.9Albumin/Globulin Ratio (1.0 - 2.5) 0.8 LHematologyWBC (4.0 - 10.5 x10E3/uL) 11.71 HRBC (4.20 - 5.40 x10E6/uL) 2.74 LHgb (12.0 - 16.0 g/dL) 8.3 LHct (37.0 - 47.0 %) 24.8 LMCV (81.0 - 99.0 fL) 90.5MCH (27.0 - 31.0 pg) 30.3MCHC (32.7 - 35.6 g/dL) 33.5RDW (11.5 - 14.0 %) 15.7 HPlt Count (150 - 450 x10E3/uL) 142 LMPV (6.9 - 9.5 fl) 9.4Immature Gran % (Auto) (0.1 - 2.0 %) 1.4Neut % (Auto) (34 - 64 %) 81.0 HLymph % (Auto) (25 - 45 %) 8.5 LMono % (Auto) (1.7 - 10.6 %) 7.8Eos % (Auto) (0.4 - 7.0 %) 1.1Baso % (Auto) (0.1 - 2.0 %) 0.2Abs Immat Gran (auto) (0.0 - 0.1 x10E3/uL) 0.16 HAbsolute Neuts (auto) (1.2 - 7.6 x10E3/uL) 9.50 HAbsolute Lymphs (auto) (1.0 - 3.5 x10E3/uL) 0.99 LAbsolute Monos (auto) (0.1 - 1.0 x10E3/uL) 0.91Absolute Eos (auto) (0.1 - 0.7 x10E3/uL) 0.13Absolute Basos (auto) (0.0 - 0.1 x10E3/uL) 0.02Nucleated RBC % (auto) (0 %) 0Results Reviewed labs reviewedAssessment/PlanProblem List1. PneumoniaStatus AcuteA&PWe will switch to Augmentin to complete a course of 10 days. Continue O2.Blood cultures negative. Urine culture negative. Continue to monitor.Nebulizer as neededPneumonia type: due to methicillin-resistant Staphylococcus aureus (MRSA)Laterality: unspecified laterality Lung location: unspecified part of lungQualified Code: J15.212 - Pneumonia due to Methicillin resistant Staphylococcusaureus2. Back painStatus AcuteA&PImproved. Continue to monitor. Blood cultures negative. Continue currentpain medication.3. COPD (chronic obstructive pulmonary disease)Status AcuteA&PWean steroid. Change to oral antibiotic to complete course. DuoNebs. Oxygentherapy chronically.4. UTI (urinary tract infection)Status ResolvedA&PRuled out.5. HLD (hyperlipidemia)Status ChronicA&PContinue statin6. Spinal stenosisStatus ChronicA&PContinue with current pain management.7. DepressionStatus ChronicA&PContinue Cymbalta. Continue BuSpar.8. HypothyroidismStatus ChronicA&PContinue levothyroxine.9. HTN (hypertension)Status ChronicA&PContinue lisinopril. Continue hydralazine and Imdur as well as metoprolol.Hypertension type: essential hypertension Qualified Code: I10 - Essential(primary) hhrpdrelbfwy51. CKD (chronic kidney disease)Status ChronicA&PStable continue to monitor as needed.11. DiabetesStatus ChronicA&PContinue long-acting insulin as well as a CHS with sliding scale coverage.Taper steroids.12. AnxietyStatus AcuteA&PContinue BuSpar benzodiazepine.13. PVD (peripheral vascular disease)Status ChronicA&PContinue Plavix and statin. Note that patient does have a stent.14. DebilityStatus ChronicA&PSupportive care PT OT.15. HypoalbuminemiaStatus ChronicA&PContinue supplements.16. Polysubstance abuseStatus ChronicA&PContinue thiamine folic acid MVI. Avoid narcotics.17. HyperglycemiaStatus AcuteA&PImproved. Taper steroids. Continue insulin coverage.18. T1-T2 SUBACUTE FRACTUREStatus AcuteA&PPT OT. Pain control.19. Anemia of chronic diseaseStatus AcuteA&PWill get B vitamins in a.m. as well as start iron and Protonix. Continue tomonitor for blood loss. Transfuse as needed. Change antibiotic to oral.20. ThrombocytopeniaA&PMonitor.Additional NotesDVT prophylaxis with heparin.GI prophylaxis on PPI to chronic steroid useTime spent [facility]Dis[facility] status Full codePlan discussed with patientCase discussed with case management specialist, nursing staffDATE SIGNED: 05/26/20 Electronically SignedTIME SIGNED: 1112 CR FAJARDO Name Value Range Interpretation Code Description Data Rosa rce(s) Supporting Document(s) ID Date Data Source [id number] 05/26/2020 07:13:00 AM EDT [place] [facility] Name Value Range Interpretation Code Description Data Rosa rce(s) Supporting Document(s) FGLU 127 mg/dL 70-110 H [facility] ID Date Data Source [id number] 05/26/2020 06:31:00 AM EDT [place] [facility] Name Value Range Interpretation Code Description Data Rosa rce(s) Supporting Document(s) WBC 11.71 x10E3/uL 4.0-10.5 [facility] RBC 2.74 x10E6/uL 4.20-5.40 L [facility] Hemoglobin 8.3 g/dL 12.0-16.0 L [facility] Hematocrit 24.8 % 37.0-47.0 L [facility] MCV 90.5 fL 81.0-99.0 [facility] MCH 30.3 pg 27.0-31.0 N [facility] MCHC 33.5 g/dL 32.7-35.6 [facility] RDW 15.7 % 11.5-14.0 [facility] Platelet count 142 x10E3/uL 150-450 [facility] MPV 9.4 fl 6.9-9.5 N [facility] Neutrophils 81.0 % 34-64 [facility] Lymphocytes 8.5 % 25-45 L [facility] Monocytes 7.8 % 1.7-10.6 N [facility] Eosinophils 1.1 % 0.4-7.0 N [facility] Basophils 0.2 % 0.1-2.0 N [facility] Imm. Gran. 1.4 % 0.1-2.0 N [facility] Abs. Neutro. 9.50 x10E3/uL 1.2-7.6 [facility] Abs. Lymph. 0.99 x10E3/uL 1.0-3.5 [facility] Abs. Curry. 0.91 x10E3/uL 0.1-1.0 [facility] Abs. Eosin. 0.13 x10E3/uL 0.1-0.7 [facility] Abs. Baso. 0.02 x10E3/uL 0.0-0.1 [facility] Abs. Imm. Gran. 0.16 x10E3/uL 0.0-0.1 [facility] ANRBC% 0 % 0 N [facility] ID Date Data Source [id number] 05/26/2020 06:28:00 AM EDT [facility] Name Value Range Interpretation Code Description Data Rosa rce(s) Supporting Document(s) MAGNESIUM 1.9 mg/dL 1.6-2.6 N [facility] ID Date Data Source [id number] 05/26/2020 06:28:[facility] Value Range Interpretation Code Description Data Rosa rce(s) Supporting Document(s) GLU 116 mg/dL 70-110 H [facility] Patients taking Sulfasalazine may have f alsely depressedGlucose levels. Patients taking Sulfapyridine may havefalsely elevated Glucose levels. Patients should be drawnfor Glucose before the initial administration of eitherdrug. BUN 17 mg/dL 7-23 [facility] CRE 0.891 mg/dL 0.500-1.300 [facility] GFR > 60 mL/min [facility] CHLORIDE 108 mmol/L 99-110 [facility] NA 144 mmol/L 136-147 [facility] POTASSIUM 3.7 mmol/L 3.5-5.1 [facility] TCO2 29 mmol/L 20-33 [facility] ANION GAP 10.7 10.0-20.0 [facility] CA 8.2 mg/dL 8.3-10.7 [facility] ALKALINE PHOS 129 U/L 45-117 H [facility] TP 5.1 g/dL 6.0-7.8 [facility] ALB 2.2 g/dL 3.5-5.0 [facility] ESRD Dialysis patient Albumin reference range: 2.9-4.4 g/dL GL 2.9 g/dL 2.3-3.5 [facility] A/G 0.8 1.0-2.5 [facility] T. BILIRUBIN 0.4 mg/dL 0.1-1.1 [facility] The [employer] [place] Total Bilirubin is n ot recommended forpatients undergoing treatment with eltrombopag (Promacta)due to the potential for falsely elevated results. ALTI 28 U/L 6-54 [facility] Patients taking Sulfasalazine and/or Sul fapyridine may havefalsely depressed ALT levels. Patients should be drawn forALT before the initial administration of either drug. AST 25 U/L 6-38 [facility] Patients taking Sulfasalazine and/or Sul fapyridine may havefalsely depressed AST levels. Patients should be drawn forAST before the initial administration of either drug. ID Date Data Source [id number] 05/26/2020 06:28:00 AM EDT [facility] Name Value Range Interpretation Code Description Data Rosa rce(s) Supporting Document(s) C-REACTIVE PROT 3.59 mg/dL 0.00-0.49 H [place] [facility] ID Date Data Source [id number] 05/25/2020 10:42:00 PM EDT [facility] Name Value Range Interpretation Code Description Data Rosa rce(s) Supporting Document(s) FGLU 166 mg/dL 70-110 H [facility] ID Date Data Source [id number] 05/25/2020 06:14:00 PM EDT [address] [id number] NOTEPATIENT NAME: ELA PONCE BATREGGIE PHYSICIAN: MICHAEL WANG, MDAUTHOR: Breezy GA, Zhang. DATE: 05/18/20 MR#: [id number] NOTE DATE: 05/25/20 RM#: [id number] TIME: 1850 : 45SubjectiveCC/Hx Present IllnessBack painEvents Since Last EntryCurrently alert oriented x3. Very poor historian. On chronic oxygen. Patientcomfortable, reported chronic back pain. Following command, tolerating p.o,.back to baseline. Denies chest pain. Afebrile. Patient reported fallingyesterday. As per nursing staff, patient misjudged the distance to the bed,and had fallen onto the bed not onto the floor. No trauma noted. All otherreview of system negativeObjectiveVital SignsVital Signs-24 HRS05/[id number] 6903 0202 0542 0823Temp 98.7 97.0 97.5Pulse 99 99 75 86 96Resp 18 18 18B/P 190/80 190/80 161/73 124/71 142/100B/P MeanPulse Ox 96 97 95O2 Delivery Nasal cannula Nasal cannula Nasal cannulaO2 Flow Rate 1.5 1.5 1.0KsR63505/25874200 7633 1140 1339Temp 99.0 99.5Pulse 94 94 86Resp 16 15B/P 142/100 172/69 172/69 168/69B/P MeanPulse Ox 94 96O2 Delivery Nasal cannula Nasal cannulaO2 Flow Rate 3L 7WBvH7Tkszng/OutputIntake/Output Summary 24 hours05/24 1900 05/25 0700Intake Total 920 600Output Total 900 700Balance 20 - 100Intake, IV 200 200Intake, Oral 720 400Number 1UnmeasuredVoidsOutput, Urine 900 700Current MedicationsInsulin Detemir (Levemir) 6 UNIT DAILY SUBCUTMetoprolol Tartrate (Lopressor) 25 MG BID POPiperacillin Sod/Tazobactam Sod (Zosyn) 3.375 GM Q6H IVIsosorbide Mononitrate (Imdur) 90 MG DAILY POPrednisone (Orasone) 20 MG DAILY POSenna/Docusate Sodium (Senokot S) 2 TAB QHS POCyclobenzaprine HCl (Flexeril) 5 MG TID POMorphine Sulfate (Morphine Sulfate) 2 MG Q4HPRN PRN IVOxycodone HCl (Oxyir) 10 MG Q6HPRN PRN POHydralazine HCl (Apresoline) 50 MG TID POLevothyroxine Sodium (Synthroid) 75 MCG DAILY PONicotine (Nicoderm) 21 MG DAILY TOPInsulin Aspart (Humalog Insulin) Low dose sliding scaleAC MEAL SUBCUTAtorvastatin Calcium (Lipitor) 40 MG QHS POBuspirone HCl (Buspar) 5 MG BID POChlorhexidine Gluconate (Chlorhexidine Gluconate) 0 BID MMInsulin Aspart (Humalog Insulin) 0 QHS SUBCUTMiscellaneous (Patch off) 1 PAT QHS NAAlbuterol/Ipratropium (Duoneb) 3 ML Q6HWA PRN INHClopidogrel Bisulfate (Plavix) 75 MG DAILY PODuloxetine HCl (Cymbalta) 60 MG DAILY POFolic Acid (Folvite) 1 MG DAILY POLisinopril (Prinivil,Zestril) 40 MG DAILY POMultivitamins (Multivitamin) 1 TAB DAILY POSodium Chloride (Saline Flush Syr(10ML)) 10 ML Q12H IVThiamine HCl (VITAMIN B1) 100 MG DAILY POHeparin Sodium (Porcine) (Heparin Sodium) 5,000 UNIT Q8H SUBCUTHeparin Sodium (Porcine) (Heparin syringe) 100 UNIT Q12H IVAcetaminophen (Tylenol) 650 MG Q6HPRN PRN POAcetaminophen (Tylenol) 650 MG Q6HPRN PRN POGlucose (Insta-Glucose) 15 GM DAILY NEEDED PRN POSodium Chloride (Saline Flush Syr(10ML)) 10 ML QIDPRN PRN IVExamGeneral Appearance no acute distress, afebrile, alert, awake, conversantHead normocephalicENT dry mucosal membranesEye AssessementR,L,Bilateral bilateralAssessment: EOMINeck no JVDCardiovascular regular rate, no gallop, no rub, normal heart soundsRespiratory clear to auscultation (anteriorly), no distress, aerating well, onoxygenAbdomen soft, no distention, normal bowel sounds, no guardingUrinary no bladder distention, no flank painExtremities no cyanosis, no edema, normal pulses, ecchymosisMuscoskeletal normal inspectionNeurological alert, oriented x 3, normal speech, no motor deficits, no sensorydeficits, CNII-XXII grossly intact, no facial asymmetrySkin AssessmentSkin Bilateral upper extremity ecchymosisPsych/Mental Status mood neutral, no hallucinationsResultsLaboratory DataRecent Labs-24 hours05/24 05/25 05/25 04/643157 3241 0608 1755ChemistrySodium (136 - 147 mmol/L) 143Potassium (3.5 - 5.1 mmol/L) 3.9Chloride (99 - 110 mmol/L) 111 HSerum Bicarbonate (20 - 33 mmol/L) 29Anion Gap (10.0 - 20.0) 6.9 LBUN (7 - 23 mg/dL) 19Creatinine (0.500 - 1.300 mg/dL) 0.871Estimated GFR/1.73 m2 (mL/min) > 60Glucose (70 - 110 mg/dL) 105POC Glucose (70 - 110 mg/dL) 250 H 143 HCalcium (8.3 - 10.7 mg/dL) 8.1 LMagnesium (1.6 - 2.6 mg/dL) 2.0Total Bilirubin (0.1 - 1.1 mg/dL) 0.4AST (6 - 38 U/L) 28ALT (6 - 54 U/L) 34Alkaline Phosphatase (45 - 117 U/L) 134 HC-Reactive Protein (0.00 - 0.49 mg/dL) 2.86 HTotal Protein (6.0 - 7.8 g/dL) 5.2 LAlbumin (3.5 - 5.0 g/dL) 2.4 LGlobulin (2.3 - 3.5 g/dL) 2.8Albumin/Globulin Ratio (1.0 - 2.5) 0.9 LHematologyWBC (4.0 - 10.5 x10E3/uL) 14.10 HRBC (4.20 - 5.40 x10E6/uL) 2.41 LHgb (12.0 - 16.0 g/dL) 7.4 PL 8.9 LHct (37.0 - 47.0 %) 22.4 L 26.3 LMCV (81.0 - 99.0 fL) 92.9MCH (27.0 - 31.0 pg) 30.7MCHC (32.7 - 35.6 g/dL) 33.0RDW (11.5 - 14.0 %) 15.1 HPlt Count (150 - 450 x10E3/uL) 150MPV (6.9 - 9.5 fl) 9.7 HImmature Gran % (Auto) (0.1 - 2.0 %) 1.3Neut % (Auto) (34 - 64 %) 83.1 HLymph % (Auto) (25 - 45 %) 7.2 LMono % (Auto) (1.7 - 10.6 %) 7.3Eos % (Auto) (0.4 - 7.0 %) 0.9Baso % (Auto) (0.1 - 2.0 %) 0.2Abs Immat Gran (auto) (0.0 - 0.1 x10E3/uL) 0.18 HAbsolute Neuts (auto) (1.2 - 7.6 x10E3/uL) 11.71 HAbsolute Lymphs (auto) (1.0 - 3.5 1.28n45F3/uL)Absolute Monos (auto) (0.1 - 1.0 x10E3/uL) 1.03 HAbsolute Eos (auto) (0.1 - 0.7 x10E3/uL) 0.13Absolute Basos (a uto) (0.0 - 0.1 x10E3/uL) 0.03Nucleated RBC % (auto) (0 %) 0Results Reviewed labs reviewedAssessment/PlanProblem List1. Back painStatus AcuteA&PDegenerative disc disease, spinal stenosis, T1-T2 subacute fracturePatient complained of back pain.MRI appreciated with no evidence of discitis, likely worsening pain due tosubcu vertebral body fracture-Leukocytosis trending down. C-reactive protein wejjsur-Dvyizm-pe blood cultures-Pain management.2. PneumoniaStatus AcuteA&PC-reactive protein improvingZosyn. IV, MRSA screening negative, vancomycin discontinued-Follow blood cultures.Pneumonia type: due to methicillin-resistant Staphylococcus aureus (MRSA)Laterality: unspecified laterality Lung location: unspecified part of lungQualified Code: J15.212 - Pneumonia due to Methicillin resistant Staphylococcusaureus3. COPD (chronic obstructive pulmonary disease)Status AcuteA&Mendoza 2.5 L oxygen at baseline, DuoNeb as needed, taper steroid on prednisone ,continue antibiotics as above4. UTI (urinary tract infection)Status AcuteA&PTreated with Zosyn wc-Dlqswj-sl urine culture.5. HLD (hyperlipidemia)Status ChronicA&PContinue statin6. Spinal stenosisStatus ChronicA&PChronic history of spinal stenosis continue with pain management.7. DepressionStatus ChronicA&PContinue with duloxetine., BuSpar8. HypothyroidismStatus ChronicA&P-Continue with levothyroxine.9. HTN (hypertension)Status ChronicA&P-Continue with lisinopril and increase hydralazine 50 mg p.o. 3 times daily,Imdur p.o. 90md daily, added metoprolol 25 mg p.o. dailyblood pressure control-Monitor blood pressure.Hypertension type: essential hypertension Qualified Code: I10 - Essential(primary) byhfiwtedpjb50. CKD (chronic kidney disease)Status ChronicA&PHistory of CKD. SU at [facility].-Monitor renal function.11. DiabetesStatus ChronicA&PComplicated with hypoglycemia and hyperglycemiaLevemir 6 units daily, continue NovoLog via protocol, close monitoring, byvtjgultupih27. AnxietyStatus AcuteA&Mendoza chronic benzodiazepines. Will continue.13. PVD (peripheral vascular disease)Status ChronicA&PHistory of stent placement.Continue with Plavix, statin-Continue to monitor.14. DebilityStatus ChronicA&P-Supportive care-Consider PT/OT when patient is more alert.15. HypoalbuminemiaStatus ChronicA&PEncourage p.o. intake. Nutrition supplementation.Ensure p.o. 3 times daily.16. Polysubstance abuseStatus ChronicA&PThiamine, folic acid, multivitamin, no signs of kpcwkqdcge50. HypernatremiaStatus AcuteA&PArxgkkmdx77. HyperglycemiaStatus AcuteA&PSecondary to steroid, will be very cautious in increasing coverage due toepisode of hypoglycemia, taper zeejouh52. T1-T2 SUBACUTE FRACTUREStatus AcuteA&PPT, OT, fall precaution, pain medication as aifrqax66. Anemia of chronic diseaseStatus AcuteA&PWorsening anemia, no signs of bleeding, transfuse 1 unit PRBC with appropriateresponse. Will monitor, further work-up as outpatientAdditional Jooaa50-fqfp-prh female patient underlying medical history of COPD O2 dependent,spinal stenosis, depression, dyslipidemia, type 2 diabetes, nicotine addiction,anxiety, hypothyroidism, debility, CKD, peripheral vascular disease,hypoalbuminemia, polysubstance abuse, [facility], sepsis, deconditioning with frequentfall, transferred given complains of back pain and worsening leukocytosisDVT prophylaxis Heparin subcuDisposition pending clinical improvement, potential transfer back to [facility],further work-up as outpatientResuscitation status Full codePlan discussed with patient, sonCase discussed with case management specialist, nursing staffVTE ProphylaxisVTE Prophylaxis: Heparin subcu.DATE SIGNED: 05/25/20 Electronically SignedTIME SIGNED: 1850 SAAD FRIED MD Name Value Range Interpretation Code Description Data Rosa rce(s) Supporting Document(s) ID Date Data Source [id number] 05/25/2020 06:12:00 PM EDT [facility] COMMENTS TO LAB: post transfusion Name Value Range Interpretation Code Description Data Rosa rce(s) Supporting Document(s) Hemoglobin 8.9 g/dL 12.0-16.0 L [facility] Hematocrit 26.3 % 37.0-47.0 L [facility] ID Date Data Source [id number] 05/26/2020 02:29:00 AM EDT [facility] Name Value Range Interpretation Code Description Data Rosa rce(s) Supporting Document(s) FGLU 162 mg/dL 70-110 H [facility] ID Date Data Source [id number] 05/25/2020 07:14:00 PM EDT [facility] Name Value Range Interpretation Code Description Data Rosa rce(s) Supporting Document(s) FGLU 175 mg/dL 70-110 H [facility] ID Date Data Source [id number] 05/25/2020 10:01:00 AM EDT [facility] Name Value Range Interpretation Code Description Data Rosa rce(s) Supporting Document(s) BLOOD TYPE AB NEGATIVE N [facility] ID Date Data Source [id number] 05/25/2020 02:30:00 PM EDT [facility] Name Value Range Interpretation Code Description Data Rosa rce(s) Supporting Document(s) FGLU 143 mg/dL 70-110 H [facility] ID Date Data Source [id number] 05/25/2020 05:56:00 AM EDT [facility] Name Value Range Interpretation Code Description Data Rosa rce(s) Supporting Document(s) C-REACTIVE PROT 2.86 mg/dL 0.00-0.49 [facility] ID Date Data Source [id number] 05/25/2020 05:56:00 AM EDT [facility] Name Value Range Interpretation Code Description Data Rosa rce(s) Supporting Document(s) MAGNESIUM 2.0 mg/dL 1.6-2.6 N [facility] ID Date Data Source [id number] 05/25/2020 05:56:00 AM EDT [facility] Name Value Range Interpretation Code Description Data Rosa rce(s) Supporting Document(s) GLU 105 mg/dL 70-110 N [facility] Patients taking Sulfasalazine may have f alsely depressedGlucose levels. Patients taking Sulfapyridine may havefalsely elevated Glucose levels. Patients should be drawnfor Glucose before the initial administration of eitherdrug. BUN 19 mg/dL 7-23 [facility] CRE 0.871 mg/dL 0.500-1.300 [facility] GFR > 60 mL/min [facility] CHLORIDE 111 mmol/L 99-110 H [facility] NA 143 mmol/L 136-147 [facility] POTASSIUM 3.9 mmol/L 3.5-5.1 [facility] TCO2 29 mmol/L 20-33 [facility] ANION GAP 6.9 10.0-20.0 [facility] CA 8.1 mg/dL 8.3-10.7 [facility] ALKALINE PHOS 134 U/L 45-117 H [facility] TP 5.2 g/dL 6.0-7.8 [facility] ALB 2.4 g/dL 3.5-5.0 [facility] ESRD Dialysis patient Albumin reference range: 2.9-4.4 g/dL GL 2.8 g/dL 2.3-3.5 [facility] A/G 0.9 1.0-2.5 [facility] T. BILIRUBIN 0.4 mg/dL 0.1-1.1 [facility] [place] Total Bilirubin is n ot recommended forpatients undergoing treatment with eltrombopag (Promacta)due to the potential for falsely elevated results. ALTI 34 U/L 6-54 [facility] Patients taking Sulfasalazine and/or Sul fapyridine may havefalsely depressed ALT levels. Patients should be drawn forALT before the initial administration of either drug. AST 28 U/L 6-38 [facility] Patients taking Sulfasalazine and/or Sul fapyridine may havefalsely depressed AST levels. Patients should be drawn forAST before the initial administration of either drug. ID Date Data Source [id number] 05/25/2020 05:47:00 AM EDT [facility] Name Value Range Interpretation Code Description Data Rosa rce(s) Supporting Document(s) WBC 14.10 x10E3/uL 4.0-10.5 [facility] RBC 2.41 x10E6/uL 4.20-5.40 L [facility] Hemoglobin 7.4 g/dL 12.0-16.0 PL [facility] Hematocrit 22.4 % 37.0-47.0 [facility] MCV 92.9 fL 81.0-99.0 [facility] MCH 30.7 pg 27.0-31.0 [facility] MCHC 33.0 g/dL 32.7-35.6 [facility] RDW 15.1 % 11.5-14.0 [facility] Platelet count 150 x10E3/uL 150-450 [facility] MPV 9.7 fl 6.9-9.5 H [facility] Neutrophils 83.1 % 34-64 [facility] Lymphocytes 7.2 % 25-45 L [facility] Monocytes 7.3 % 1.7-10.6 [facility] Eosinophils 0.9 % 0.4-7.0 [facility] Basophils 0.2 % 0.1-2.0 [facility] Imm. Gran. 1.3 % 0.1-2.0 [facility] Abs. Neutro. 11.71 x10E3/uL 1.2-7.6 [facility] Abs. Lymph. 1.02 x10E3/uL 1.0-3.5 [facility] Abs. Curry. 1.03 x10E3/uL 0.1-1.0 [facility] Abs. Eosin. 0.13 x10E3/uL 0.1-0.7 [facility] Abs. Baso. 0.03 x10E3/uL 0.0-0.1 [facility] Abs. Imm. Gran. 0.18 x10E3/uL 0.0-0.1 [facility] ANRBC% 0 % 0 [facility] ID Date Data Source [id number] 05/29/2020 11:59:00 PM EDT [facility] : N *Clinically Significant Acut e Blood Loss N *Hgb < or = to 7.0g/dL or Hct < or = to 21% N *Hgb < 8.0g/dL or Hct < 24% and PT Hemodynamically Unstable N *Hgb < 8.0 for Anemia and an Acute LA or Unstable Angina N *Hgb < 9.0g/dL with Chronic Transfusion Therapy Y *Maximum Blood Order Schedule NIrradiated? NCMV Negative? NTransfuse 1units over 4Have you ever had a blood transfusion? NHave you had a blood transfusion within the last 3 months? N Name Value Range Interpretation Code Description Data Rosa rce(s) Supporting Document(s) ANTIBODY ID ANTI D N [facility] ID Date Data Source [id number] 05/29/2020 12:00:00 AM EDT [facility] Name Value Range Interpretation Code Description Data Rosa rce(s) Supporting Document(s) [id number] TRANSFUSED PRODUCT: PACKED CELLS CO UNT: 1 [facility] ID Date Data Source [id number] 05/29/2020 11:59:00 PM EDT [facility] : N *Clinically Significant Acut e Blood Loss N *Hgb < or = to 7.0g/dL or Hct < or = to 21% N *Hgb < 8.0g/dL or Hct < 24% and PT Hemodynamically Unstable N *Hgb < 8.0 for Anemia and an Acute LA or Unstable Angina N *Hgb < 9.0g/dL with Chronic Transfusion Therapy Y *Maximum Blood Order Schedule NIrradiated? NCMV Negative? NTransfuse 1units over 4Have you ever had a blood transfusion? NHave you had a blood transfusion within the last 3 months? NC: NEGATIVEE: NEGATIVE Name Value Range Interpretation Code Description Data Rosa rce(s) Supporting Document(s) ID Date Data Source [id number] 05/29/2020 11:59:00 PM EDT [facility] : N *Clinically Significant Acut e Blood Loss N *Hgb < or = to 7.0g/dL or Hct < or = to 21% N *Hgb < 8.0g/dL or Hct < 24% and PT Hemodynamically Unstable N *Hgb < 8.0 for Anemia and an Acute LA or Unstable Angina N *Hgb < 9.0g/dL with Chronic Transfusion Therapy Y *Maximum Blood Order Schedule NIrradiated? NCMV Negative? NTransfuse 1units over 4Have you ever had a blood transfusion? NHave you had a blood transfusion within the last 3 months? NUNIT NUMBER: [id number]: YPRODUCT: LEUKO REDUCED RED BLOOD CELLSSOURCE: [facility] TYPE: A NEGATIVEVOLUME: 309MLNOT AVAILABLE: YCROSSMATCH COMPONENTS:00UNIT NUMBER: [id number]: YPRODUCT: LEUKO REDUCED RED BLOOD CELLSSOURCE: [facility] TYPE: A NEGATIVEVOLUME: 309MLCROSSMATCH COMPONENTS:00 Name Value Range Interpretation Code Description Data Rosa rce(s) Supporting Document(s) ID Date Data Source [id number] 05/29/2020 11:59:00 PM EDT [facility] : N *Clinically Significant Acut e Blood Loss N *Hgb < or = to 7.0g/dL or Hct < or = to 21% N *Hgb < 8.0g/dL or Hct < 24% and PT Hemodynamically Unstable N *Hgb < 8.0 for Anemia and an Acute LA or Unstable Angina N *Hgb < 9.0g/dL with Chronic Transfusion Therapy Y *Maximum Blood Order Schedule NIrradiated? NCMV Negative? NTransfuse 1units over 4Have you ever had a blood transfusion? NHave you had a blood transfusion within the last 3 months? NUNIT NUMBER: [id number]: YPRODUCT: LEUKO REDUCED RED BLOOD CELLSSOURCE: [facility] TYPE: A NEGATIVEVOLUME: 283MLNOT AVAILABLE: YCROSSMATCH COMPONENTS: Name Value Range Interpretation Code Description Data Rosa rce(s) Supporting Document(s) ISXM 0 [facility] IGGXM 0 [facility] ID Date Data Source [id number] 05/29/2020 11:59:00 PM EDT [facility] : N *Clinically Significant Acut e Blood Loss N *Hgb < or = to 7.0g/dL or Hct < or = to 21% N *Hgb < 8.0g/dL or Hct < 24% and PT Hemodynamically Unstable N *Hgb < 8.0 for Anemia and an Acute LA or Unstable Angina N *Hgb < 9.0g/dL with Chronic Transfusion Therapy Y *Maximum Blood Order Schedule NIrradiated? NCMV Negative? NTransfuse 1units over 4Have you ever had a blood transfusion? NHave you had a blood transfusion within the last 3 months? N Name Value Range Interpretation Code Description Data Rosa rce(s) Supporting Document(s) BLOOD TYPE AB NEGATIVE [facility] ANTIBODY SCREEN POSITIVE N [facility] al ID Date Data Source [id number] 05/25/2020 08:55:00 AM EDT [facility] Name Value Range Interpretation Code Description Data Rosa rce(s) Supporting Document(s) DATIgG NEGATIVE NEGATIVE [facility] ID Date Data Source [id number] 05/25/2020 12:50:00 AM EDT [facility] Name Value Range Interpretation Code Description Data Rosa rce(s) Supporting Document(s) FGLU 250 mg/dL 70-110 H [facility] ID Date Data Source [id number] 05/24/2020 06:24:00 PM EDT [facility] Name Value Range Interpretation Code Description Data Rosa rce(s) Supporting Document(s) FGLU 107 mg/dL 70-110 N [facility] ID Date Data Source [id number] 05/24/2020 04:01:00 PM EDT [address] [id number] NOTEPATIENT NAME: KRISELASALLY FERNANDEZCLEAR V[facility] PHYSICIAN: MICHAEL WANG MDAUTHOR: Breezy GA, Zhang. DATE: 05/18/20 MR#: [id number] NOTE DATE: 05/24/20 RM#: [id number] TIME: 1608 : 45SubjectiveCC/Hx Present IllnessBack painEvents Since Last EntryCurrently alert oriented x3. Very poor historian. On chronic oxygen. Patientcomfortable, reported chronic back pain. Following command, tolerating p.o.back to baseline. Denies chest pain. Afebrile. All other review of systemnegativeObjectiveVital SignsVital Signs-24 HRS05/23580140 5038 0200 0517Temp 98.1 98.0 97.8 98.1Pulse 100 94 94 92Resp 17 18 18 18B/P 166/76 166/76 164/76 168/79B/P MeanPulse Ox 99 99 97 97O2 Delivery Nasal cannula Nasal cannula Nasal cannula Nasal cannulaO2 Flow Rate 3L 3L 3L 1.8ZzN09205/24986189 3037 0739 0844 1030Temp 98.1 98.4Pulse 87 93 103Resp 18 17B/P 168/79 169/75 169/75 162/77B/P MeanPulse Ox 99 94O2 Delivery Nasal cannula Nasal cannulaO2 Flow Rate 3L 1.4REdK279/039686Uzan 98.4Pulse 100Resp 17B/P 164/78B/P MeanPulse Ox 96O2 DeliveryO2 Flow NqwnJwC6Gu take/OutputIntake/Output Summary 24 hours05/23 1900 05/24 0700Intake Total 1000 840Output Total 375 1400Balance 625 -560Intake, IV 200 200Intake, Oral 800 640Output, Urine 375 1400Current MedicationsInsulin Detemir (Levemir) 6 UNIT DAILY SUBCUTMetoprolol Tartrate (Lopressor) 25 MG BID PO (UNVr)Piperacillin Sod/Tazobactam Sod (Zosyn) 3.375 GM Q6H IVIsosorbide Mononitrate (Imdur) 90 MG DAILY POPrednisone (Orasone) 20 MG DAILY POSenna/Docusate Sodium (Senokot S) 2 TAB QHS POCyclobenzaprine HCl (Flexeril) 5 MG TID POMorphine Sulfate (Morphine Sulfate) 2 MG Q4HPRN PRN IVLorazepam (Ativan) 1 MG Q4HPRN PRN POOxycodone HCl (Oxyir) 10 MG Q6HPRN PRN POHydralazine HCl (Apresoline) 50 MG TID POLevothyroxine Sodium (Synthroid) 75 MCG DAILY PONicotine (Nicoderm) 21 MG DAILY TOPInsulin Aspart (Humalog Insulin) Low dose sliding scaleAC MEAL SUBCUTAtorvastatin Calcium (Lipitor) 40 MG QHS POBuspirone HCl (Buspar) 5 MG BID POChlorhexidine Gluconate (Chlorhexidine Gluconate) 0 BID MMInsulin Aspart (Humalog Insulin) 0 QHS SUBCUTMiscellaneous (Patch off) 1 PAT QHS NAAlbuterol/Ipratropium (Duoneb) 3 ML Q6HWA PRN INHClopidogrel Bisulfate (Plavix) 75 MG DAILY PODuloxetine HCl (Cymbalta) 60 MG DAILY POFolic Acid (Folvite) 1 MG DAILY POLisinopril (Prinivil,Zestril) 40 MG DAILY POMultivitamins (Multivitamin) 1 TAB DAILY POSodium Chloride (Saline Flush Syr(10ML)) 10 ML Q12H IVThiamine HCl (VITAMIN B1) 100 MG DAILY POHeparin Sodium (Porcine) (Heparin Sodium) 5,000 UNIT Q8H SUBCUTHeparin Sodium (Porcine) (Heparin syringe) 100 UNIT Q12H IVAcetaminophen (Tylenol) 650 MG Q6HPRN PRN POAcetaminophen (Tylenol) 650 MG Q6HPRN PRN POGlucose (Insta- Glucose) 15 GM DAILY NEEDED PRN POSodium Chloride (Saline Flush Syr(10ML)) 10 ML QIDPRN PRN IVExamGeneral Appearance no acute distress, afebrile, alert, awake, conversantHead normocephalicENT dry mucosal membranesEye AssessementR,L,Bilateral bilateralAssessment: EOMINeck no JVDCardiovascular regular rate, no gallop, no rub, normal heart soundsRespiratory clear to auscultation (anteriorly), no distress, aerating well, onoxygenAbdomen soft, no distention, normal bowel sounds, no guardingUrinary no bladder distention, no flank painExtremities no cyanosis, no edema, normal pulses, ecchymosisMuscoskeletal normal inspectionNeurological alert, oriented x 3, normal speech, no motor deficits, no sensorydeficits, CNII-XXII grossly intact, no facial asymmetrySkin AssessmentSkin dryPsych/Mental Status mood neutral, no hallucinationsResultsLaboratory DataRecent Labs-24 hours05/23632 2017 4529 0608ChemistrySodium (136 - 147 mmol/L) 143Potassium (3.5 - 5.1 mmol/L) 3.9Chloride (99 - 110 mmol/L) 112 HSerum Bicarbonate (20 - 33 mmol/L) 27Anion Gap (10.0 - 20.0) 7.9 LBUN (7 - 23 mg/dL) 24 HCreatinine (0.500 - 1.300 mg/dL) 0.995Estimated GFR/1.73 m2 (mL/min) 58Glucose (70 - 110 mg/dL) 69 LPOC Glucose (70 - 110 mg/dL) 190 H 68 L 93Calcium (8.3 - 10.7 mg/dL) 8.2 LMagnesium (1.6 - 2.6 mg/dL) 2.0Total Bilirubin (0.1 - 1.1 mg/dL) 0.4AST (6 - 38 U/L) 32ALT (6 - 54 U/L) 36Alkaline Phosphatase (45 - 117 U/L) 139 HC-Reactive Protein (0.00 - 0.49 mg/dL) 0.90 HTotal Protein (6.0 - 7.8 g/dL) 5.7 LAlbumin (3.5 - 5.0 g/dL) 2.6 LGlobulin (2.3 - 3.5 g/dL) 3.1Albumin/Globulin Ratio (1.0 - 2.5) 0.8 LHematologyWBC (4.0 - 10.5 x10E3/uL) 17.89 HRBC (4.20 - 5.40 x10E6/uL) 2.71 LHgb (12.0 - 16.0 g/dL) 8.1 LHct (37.0 - 47.0 %) 25.1 LMCV (81.0 - 99.0 fL) 92.6MCH (27.0 - 31.0 pg) 29.9MCHC (32.7 - 35.6 g/dL) 32.3 LRDW (11.5 - 14.0 %) 15.1 HPlt Count (150 - 450 x10E3/uL) 164MPV (6.9 - 9.5 fl) 9.9 HImmature Gran % (Auto) (0.1 - 2.0 %) 1.6Neut % (Auto) (34 - 64 %) 83.5 HLymph % (Auto) (25 - 45 %) 7.4 LMono % (Auto) (1.7 - 10.6 %) 6.4Eos % (Auto) (0.4 - 7.0 %) 1.0Baso % (Auto) (0.1 - 2.0 %) 0.1Abs Immat Gran (auto) (0.0 - 0.1 x10E3/uL) 0.28 HAbsolute Neuts (auto) (1.2 - 7.6 x10E3/uL) 14.96 HAbsolute Lymphs (auto) (1.0 - 3.5 x10E3/uL) 1.32Absolute Monos (auto) (0.1 - 1.0 x10E3/uL) 1.15 HAbsolute Eos (auto) (0.1 - 0.7 x10E3/uL) 0.17Absolute Basos (auto) (0.0 - 0.1 x10E3/uL) 0.01Nucleated RBC % (auto) (0 %) 004/732903WmngbcmxvSUP Glucose (70 - 110 mg/dL) 228 HResults Reviewed labs reviewedAssessment/PlanProblem List1. Back painStatus AcuteA&PDegenerative disc disease, spinal stenosis, T1-T2 subacute fracturePatient complained of back pain.MRI appreciated with no evidence of discitis, likely worsening pain due tosubcu vertebral body fracture-Leukocytosis trending down. C-reactive protein bpaekpr-Padtcx-ru blood cultures-Pain management.2. PneumoniaStatus AcuteA&PC-reactive protein improvingZosyn. IV, MRSA screening negative, vancomycin discontinued-Follow blood cultures.Pneumonia type: due to methicillin-resistant Staphylococcus aureus (MRSA)Laterality: unspecified laterality Lung location: unspecified part of lungQualified Code: J15.212 - Pneumonia due to Methicillin resistant Staphylococcusaureus3. COPD (chronic obstructive pulmonary disease)Status AcuteA&Mendoza 2.5 L oxygen at baseline, DuoNeb as needed, taper steroid on prednisone ,continue antibiotics as above4. UTI (urinary tract infection)Status AcuteA&PUTI questionable pyelonephritis on CT abdomen pelvis-Continue with Zosyn qy-Sojkzq-en urine culture.5. HLD (hyperlipidemia)Status ChronicA&PContinue statin6. Spinal stenosisStatus ChronicA&PChronic history of spinal stenosis continue with pain management.7. DepressionStatus ChronicA&PContinue with duloxetine., BuSpar8. HypothyroidismStatus ChronicA&P-Continue with levothyroxine.9. HTN (hypertension)Status ChronicA&P-Continue with lisinopril and increase hydralazine 50 mg p.o. 3 times daily,Imdur p.o. 90md daily, added metoprolol 25 mg p.o. dailyblood pressure control-Monitor blood pressure.10. CKD (chronic kidney disease)Status ChronicA&PHistory of CKD. SU at [facility].-Monitor renal function.11. DiabetesStatus ChronicA&PComplicated with hypoglycemia and hyperglycemiaLevemir 6 units daily, continue NovoLog via protocol, close monitoring, kdduwcytuqztn42. AnxietyStatus AcuteA&Mendoza chronic benzodiazepines. Will continue.13. PVD (peripheral vascular disease)Status ChronicA&PHistory of stent placement.Continue with Plavix, statin-Continue to monitor.14. DebilityStatus ChronicA&P-Supportive care-Consider PT/OT when patient is more alert.15. HypoalbuminemiaStatus ChronicA&PEncourage p.o. intake. Nutrition supplementation.Ensure p.o. 3 times daily.16. Polysubstance abuseStatus ChronicA&PThiamine, folic acid, multivitamin, no signs of ceysgnnlzq36. HypernatremiaStatus AcuteA&WXyrzozsda90. HyperglycemiaStatus AcuteA&PSecondary to steroid, will be very cautious in increasing coverage due toepisode of hypoglycemia, taper ajxaecj50. T1-T2 SUBACUTE FRACTUREStatus AcuteA&PPT, OT, fall precaution, pain medication as orderedAdditional Exkfw40-uqzh-mvr female patient underlying medical history of COPD O2 dependent,spinal stenosis, depression, dyslipidemia, type 2 diabetes, nicotine addiction,anxiety, hypothyroidism, debility, CKD, peripheral vascular disease,hypoalbuminemia, polysubstance abuse, [facility], [facility], deconditioning with frequentfall, transferred given complains of back pain and worsening leukocytosisDVT prophylaxis Heparin subcuDisposition pending clinical improvement, [place] SNFResuscitation status Full codePlan discussed with patientCase discussed with case management specialist, nursing staffVTE ProphylaxisVTE Prophylaxis: Heparin subcu.DATE SIGNED: 05/24/20 Electronically SignedTIME SIGNED: 1608 SAAD FRIED MD Name Value Range Interpretation Code Description Data Rosa rce(s) Supporting Document(s) ID Date Data Source [id number] 05/24/2020 02:59:00 PM EDT [facility] Name Value Range Interpretation Code Description Data Rosa rce(s) Supporting Document(s) FGLU 228 mg/dL 70-110 H [facility] ID Date Data Source [id number] 05/24/2020 07:48:00 AM EDT [facility] jer Name Value Range Interpretation Code Description Data Rosa rce(s) Supporting Document(s) FGLU 93 mg/dL 70-110 [facility] ID Date Data Source [id number] 05/24/2020 05:49:00 AM EDT [facility] jer Name Value Range Interpretation Code Description Data Rosa rce(s) Supporting Document(s) GLU 69 mg/dL 70-110 L [facility] Patients taking Sulfasalazine may have f alsely depressedGlucose levels. Patients taking Sulfapyridine may havefalsely elevated Glucose levels. Patients should be drawnfor Glucose before the initial administration of eitherdrug. BUN 24 mg/dL 7-23 H [facility] CRE 0.995 mg/dL 0.500-1.300 [facility] GFR 58 mL/min [facility] CHLORIDE 112 mmol/L 99-110 H [facility] NA 143 mmol/L 136-147 [facility] POTASSIUM 3.9 mmol/L 3.5-5.1 [facility] TCO2 27 mmol/L 20-33 [facility] ANION GAP 7.9 10.0-20.0 L [facility] CA 8.2 mg/dL 8.3-10.7 [facility] ALKALINE PHOS 139 U/L 45-117 H [facility] TP 5.7 g/dL 6.0-7.8 L [facility] ALB 2.6 g/dL 3.5-5.0 [facility] ESRD Dialysis patient Albumin reference range: 2.9-4.4 g/dL GL 3.1 g/dL 2.3-3.5 [facility] A/G 0.8 1.0-2.5 [facility] T. BILIRUBIN 0.4 mg/dL 0.1-1.1 [facility] The Dimension [place] Total Bilirubin is n ot recommended forpatients undergoing treatment with eltrombopag (Promacta)due to the potential for falsely elevated results. ALTI 36 U/L 6-54 [facility] Patients taking Sulfasalazine and/or Sul fapyridine may havefalsely depressed ALT levels. Patients should be drawn forALT before the initial administration of either drug. AST 32 U/L 6-38 [facility] Patients taking Sulfasalazine and/or Sul fapyridine may havefalsely depressed AST levels. Patients should be drawn forAST before the initial administration of either drug. ID Date Data Source [id number] 05/24/2020 05:49:00 AM EDT [facility] Name Value Range Interpretation Code Description Data Rosa rce(s) Supporting Document(s) C-REACTIVE PROT 0.90 mg/dL 0.00-0.49 H [facility] ID Date Data Source [id number] 05/24/2020 05:49:00 AM EDT [facility] Name Value Range Interpretation Code Description Data Rosa rce(s) Supporting Document(s) MAGNESIUM 2.0 mg/dL 1.6-2.6 [facility] ID Date Data Source [id number] 05/24/2020 05:16:00 AM EDT [facility] Name Value Range Interpretation Code Description Data Rosa rce(s) Supporting Document(s) WBC 17.89 x10E3/uL 4.0-10.5 [facility] RBC 2.71 x10E6/uL 4.20-5.40 [facility] Hemoglobin 8.1 g/dL 12.0-16.0 [facility] Hematocrit 25.1 % 37.0-47.0 [facility] MCV 92.6 fL 81.0-99.0 N [facility] MCH 29.9 pg 27.0-31.0 N [facility] MCHC 32.3 g/dL 32.7-35.6 L [facility] RDW 15.1 % 11.5-14.0 H [facility] Platelet count 164 x10E3/uL 150-450 N [facility] MPV 9.9 fl 6.9-9.5 H [facility] Neutrophils 83.5 % 34-64 H [facility] Lymphocytes 7.4 % 25-45 L [facility] Monocytes 6.4 % 1.7-10.6 N [facility] Eosinophils 1.0 % 0.4-7.0 N [facility] Basophils 0.1 % 0.1-2.0 N [facility] Imm. Gran. 1.6 % 0.1-2.0 N [facility] Abs. Neutro. 14.96 x10E3/uL 1.2-7.6 [facility] Abs. Lymph. 1.32 x10E3/uL 1.0-3.5 [facility] Abs. Curry. 1.15 x10E3/uL 0.1-1.0 [facility] Abs. Eosin. 0.17 x10E3/uL 0.1-0.7 [facility] Abs. Baso. 0.01 x10E3/uL 0.0-0.1 N [facility] Abs. Imm. Gran. 0.28 x10E3/uL 0.0-0.1 [facility] ANRBC% 0 % 0 N [facility] ID Date Data Source [id number] 05/24/2020 01:38:00 AM EDT [facility] Name Value Range Interpretation Code Description Data Rosa rce(s) Supporting Document(s) FGLU 68 mg/dL 70-110 L [facility] ID Date Data Source [id number] 05/23/2020 08:05:00 PM EDT [facility] [address] [id number] NOTEPATIENT NAME: ELA PONCE BATTENDING PHYSICIAN: MICHAEL WANG, MDAUTHOR: Breezy GA, Zhang. DATE: 05/18/20 MR#: [id number] NOTE DATE: 05/23/20 RM#: 232EVALUATION TIME: 2021 : 45SubjectiveCC/Hx Present IllnessBack painEvents Since Last EntryCurrently alert oriented x3. Very poor historian. On chronic oxygen. Patientcomfortable, reported chronic back pain. Following command, tolerating p.o.almost back to baseline. Denies chest pain. Afebrile. All other review ofsystem negativeObjectiveVital SignsVital Signs-24 HRS05/22694723 4151 0250 0524 0751Temp 98.9 98.0 98.1Pulse 95 84 89Resp 18 17 16B/P 160/90 183/80 210/90 178/64B/P MeanPulse Ox 97 96 97O2 Delivery Nasal cannula Nasal cannulaO2 Flow Rate 2 6PoP85705/23253785 8924 0942 1000 1341Temp 98.1 98.3Pulse 89 100 96Resp 17 17B/P 178/64 178/64 182/83 168/77B/P MeanPulse Ox 98 95O2 Delivery Nasal cannula Nasal cannula Nasal cannulaO2 Flow Rate 3L 2L 5RDqR197/555919Zbjb 98.1Pulse 100Resp 17B/P 166/76B/P MeanPulse Ox 99O2 Delivery Nasal cannulaO2 Flow Rate 1QTsO1Hrtmoj/OutputIntake/Output Summary 24 hours05/22 1900 05/23 0700Intake Total 2130 500Output Total 1050 600Balance 1080 -100Intake, IV 650 200Intake, Oral 1480 300Number 1BowelMovementsOutput, Urine 1050 600Current MedicationsIsosorbide Mononitrate (Imdur) 90 MG DAILY POPrednisone (Orasone) 20 MG DAILY POSenna/Docusate Sodium (Senokot S) 2 TAB QHS POCyclobenzaprine HCl (Flexeril) 5 MG TID POMorphine Sulfate (Morphine Sulfate) 2 MG Q4HPRN PRN IVInsulin Detemir (Levemir) 8 UNIT DAILY SUBCUTLorazepam (Ativan) 1 MG Q4HPRN PRN POOxycodone HCl (Oxyir) 10 MG Q6HPRN PRN POHydralazine HCl (Apresoline) 50 MG TID POLevothyroxine Sodium (Synthroid) 75 MCG DAILY PONicotine (Nicoderm) 21 MG DAILY TOPInsulin Aspart (Humalog Insulin) Low dose sliding scaleAC MEAL SUBCUTAtorvastatin Calcium (Lipitor) 40 MG QHS POBuspirone HCl (Buspar) 5 MG BID POChlorhexidine Gluconate (Chlorhexidine Gluconate) 0 BID MMInsulin Aspart (Humalog Insulin) 0 QHS SUBCUTMiscellaneous (Patch off) 1 PAT QHS NAAlbuterol/Ipratropium (Duoneb) 3 ML Q6HWA PRN INHClopidogrel Bisulfate (Plavix) 75 MG DAILY PODuloxetine HCl (Cymbalta) 60 MG DAILY POFolic Acid (Folvite) 1 MG DAILY POLisinopril (Prinivil,Zestril) 40 MG DAILY POMultivitamins (Multivitamin) 1 TAB DAILY POSodium Chloride (Saline Flush Syr(10ML)) 10 ML Q12H IVThiamine HCl (VITAMIN B1) 100 MG DAILY POPiperacillin Sod/Tazobactam Sod (Zosyn) 3.375 GM Q6H IVHeparin Sodium (Porcine) (Heparin Sodium) 5,000 UNIT Q8H SUBCUTHeparin Sodium (Porcine) (Heparin syringe) 100 UNIT Q12H IVAcetaminophen (Tylenol) 650 MG Q6HPRN PRN POAcetaminophen (Tylenol) 650 MG Q6HPRN PRN POGlucose (Insta-Glucose) 15 GM DAILY NEEDED PRN POSodium Chloride (Saline Flush Syr(10ML)) 10 ML QIDPRN PRN IVExamGeneral Appearance no acute distress, afebrile, alert, awake, conversantHead normocephalicENT dry mucosal membranesEye AssessementR,L,Bilateral bilateralAssessment: EOMINeck no JVDCardiovascular regular rate, no gallop, no rub, normal heart soundsRespiratory clear to auscultation (anteriorly), no distress, aerating well, onoxygenAbdomen soft, no distention, normal bowel sounds, no guardingUrinary no flank pain, Garcia catheterExtremities no cyanosis, no edema, normal pulses, ecchymosisMuscoskeletal normal inspectionNeurological alert, normal speech, no motor deficits, CNII-XXII grossly intact,no facial asymmetry, Moves all 4 extremity, alert oriented x2,Skin AssessmentSkin dry, Bilateral upper arm bruising, small skin tearPsych/Mental Status mood neutralResultsLaboratory DataRecent Labs-24 hours05/23415 0622ChemistrySodium (136 - 147 mmol/L) 141Potassium (3.5 - 5.1 mmol/L) 4.3Chloride (99 - 110 mmol/L) 111 HSerum Bicarbonate (20 - 33 mmol/L) 28Anion Gap (10.0 - 20.0) 6.3 LBUN (7 - 23 mg/dL) 28 HCreatinine (0.500 - 1.300 mg/dL) 1.040Estimated GFR/1.73 m2 (mL/min) 55Glucose (70 - 110 mg/dL) 225 HPOC Glucose (70 - 110 mg/dL) 271 HCalcium (8.3 - 10.7 mg/dL) 8.2 LMagnesium (1.6 - 2.6 mg/dL) 2.0Total Bilirubin (0.1 - 1.1 mg/dL) 0.5AST (6 - 38 U/L) 25ALT (6 - 54 U/L) 36Alkaline Phosphatase (45 - 117 U/L) 140 HC-Reactive Protein (0.00 - 0.49 mg/dL) 1.72 HTotal Protein (6.0 - 7.8 g/dL) 5.4 LAlbumin (3.5 - 5.0 g/dL) 2.5 LGlobulin (2.3 - 3.5 g/dL) 2.9Albumin/Globulin Ratio (1.0 - 2.5) 0.9 LHematologyWBC (4.0 - 10.5 x10E3/uL) 12.48 HRBC (4.20 - 5.40 x10E6/uL) 2.65 LHgb (12.0 - 16.0 g/dL) 8.0 LHct (37.0 - 47.0 %) 24.7 LMCV (8 1.0 - 99.0 fL) 93.2MCH (27.0 - 31.0 pg) 30.2MCHC (32.7 - 35.6 g/dL) 32.4 LRDW (11.5 - 14.0 %) 14.8 HPlt Count (150 - 450 x10E3/uL) 146 LMPV (6.9 - 9.5 fl) 10.1 HImmature Gran % (Auto) (0.1 - 2.0 %) 1.8Neut % (Auto) (34 - 64 %) 88.5 HLymph % (Auto) (25 - 45 %) 4.8 LMono % (Auto) (1.7 - 10.6 %) 4.6Eos % (Auto) (0.4 - 7.0 %) 0.2 LBaso % (Auto) (0.1 - 2.0 %) 0.1Abs Immat Gran (auto) (0.0 - 0.1 x10E3/uL) 0.23 HAbsolute Neuts (auto) (1.2 - 7.6 x10E3/uL) 11.04 HAbsolute Lymphs (auto) (1.0 - 3.5 x10E3/uL) 0.60 LAbsolute Monos (auto) (0.1 - 1.0 x10E3/uL) 0.58Absolute Eos (auto) (0.1 - 0.7 x10E3/uL) 0.02 LAbsolute Basos (auto) (0.0 - 0.1 x10E3/uL) 0.01Nucleated RBC % (auto) (0 %) 0Results Reviewed labs reviewedAssessment/PlanProblem List1. Back painStatus AcuteA&PDegenerative disc disease, spinal stenosis, T1-T2 subacute fracturePatient complained of back pain. On examination had lumbar and thoracictenderness in the setting of increasing CRP and increasing leukocytosis. MRIappreciated with no evidence of discitis, likely worsening pain due to subcuvertebral body fracture-Leukocytosis trending down. C-reactive protein ufiomsn-Qappts-et blood cultures-Pain management.2. PneumoniaStatus AcuteA&PC-reactive protein improvingZosyn. IV, MRSA screening negative, vancomycin discontinued-Follow blood cultures.Pneumonia type: due to methicillin-resistant Staphylococcus aureus (MRSA)Laterality: unspecified laterality Lung location: unspecified part of lungQualified Code: J15.212 - Pneumonia due to Methicillin resistant Staphylococcusaureus3. COPD (chronic obstructive pulmonary disease)Status AcuteA&Mendoza 2.5 L oxygen at baseline, DuoNeb as needed, taper steroid on prednisone ,continue antibiotics as above4. UTI (urinary tract infection)Status AcuteA&PUTI questionable pyelonephritis on CT abdomen pelvis-Continue with Zosyn ev-Nqfcwr-ib urine culture.5. HLD (hyperlipidemia)Status ChronicA&PContinue statin6. Spinal stenosisStatus ChronicA&PChronic history of spinal stenosis continue with pain management.7. DepressionStatus ChronicA&PContinue with duloxetine., BuSpar8. HypothyroidismStatus ChronicA&PCheck TSH.-Continue with levothyroxine.9. HTN (hypertension)Status ChronicA&P-Continue with lisinopril and increase hydralazine 50 mg p.o. 3 times daily,Imdur p.o. 90md dailyblood pressure control-Monitor blood pressure.10. CKD (chronic kidney disease)Status ChronicA&PHistory of CKD. SU at [facility].-Monitor renal function.11. DiabetesStatus ChronicA&PComplicated with hypoglycemia and hyperglycemiaLevemir 8 units daily, continue NovoLog via protocol, close monitoring, syliqkupuwwlz15. AnxietyStatus AcuteA&Mendoza chronic benzodiazepines. Will continue.13. PVD (peripheral vascular disease)Status ChronicA&PHistory of stent placement.Continue with Plavix, statin-Continue to monitor.14. DebilityStatus ChronicA&P-Supportive care-Consider PT/OT when patient is more alert.15. HypoalbuminemiaStatus ChronicA&PEncourage p.o. intake. Nutrition supplementation.Ensure p.o. 3 times daily.16. Polysubstance abuseStatus ChronicA&PThiamine, folic acid, multivitamin, Ativan as needed for mstpluunrc74. HypernatremiaStatus AcuteA&CQbsxtbhvy17. HyperglycemiaStatus AcuteA&PSecondary to steroid, will be very cautious in increasing coverage due toepisode of hypoglycemia, taper oguxkkw12. T1-T2 SUBACUTE FRACTUREStatus AcuteA&PPT, OT, fall precaution, pain medication as orderedAdditional Cxaaf83-tout-bvo female patient underlying medical history of COPD O2 dependent,spinal stenosis, depression, dyslipidemia, type 2 diabetes, nicotine addiction,anxiety, hypothyroidism, debility, CKD, peripheral vascular disease,hypoalbuminemia, polysubstance abuse, initially admitted to [facility] for right upper lobe pneumonia, sepsis, deconditioning with frequentfall, transferred given complains of back pain and worsening leukocytosisDVT prophylaxis Heparin subcuDisposition pending clinical improvement, [place] SNFResuscitation status Full codePlan discussed with patient, sonCase discussed with case management specialist, nursing staffVTE ProphylaxisVTE Prophylaxis: heparin SQDATE SIGNED: 05/23/20 Electronically SignedTIME SIGNED: 2021 SAAD FRIED MD Name Value Range Interpretation Code Description Data Rosa rce(s) Supporting Document(s) ID Date Data Source [id number] 05/23/2020 11:37:00 PM EDT [facility] Name Value Range Interpretation Code Description Data Rosa rce(s) Supporting Document(s) FGLU 190 mg/dL 70-110 [facility] ID Date Data Source [id number] 05/24/2020 02:34:00 AM EDT [facility] Name Value Range Interpretation Code Description Data Rosa rce(s) Supporting Document(s) FGLU 304 mg/dL 70-110 [facility] ID Date Data Source [id number] 05/23/2020 08:21:00 AM EDT [facility] Name Value Range Interpretation Code Description Data Rosa rce(s) Supporting Document(s) FGLU 271 mg/dL 70-110 [facility] ID Date Data Source [id number] 05/23/2020 05:59:00 AM EDT [facility] Name Value Range Interpretation Code Description Data Rosa rce(s) Supporting Document(s) C-REACTIVE PROT 1.72 mg/dL 0.00-0.49 [facility] ID Date Data Source [id number] 05/23/2020 05:59:00 AM EDT [facility] Name Value Range Interpretation Code Description Data [facility](s) Supporting Document(s) MAGNESIUM 2.0 mg/dL 1.6-2.6 [facility] ID Date Data Source [id number] 05/23/2020 05:59:00 AM EDT [facility] Name Value Range Interpretation Code Description Data [facility](s) Supporting Document(s) GLU 225 mg/dL 70-110 [facility] Patients taking Sulfasalazine may have f alsely depressedGlucose levels. Patients taking Sulfapyridine may havefalsely elevated Glucose levels. Patients should be drawnfor Glucose before the initial administration of eitherdrug. BUN 28 mg/dL 7-23 [facility] CRE 1.040 mg/dL 0.500-1.300 [facility] GFR 55 mL/min [facility] CHLORIDE 111 mmol/L 99-110 [facility] NA 141 mmol/L 136-147 [facility] POTASSIUM 4.3 mmol/L 3.5-5.1 [facility] TCO2 28 mmol/L 20-33 [facility] ANION GAP 6.3 10.0-20.0 [facility] CA 8.2 mg/dL 8.3-10.7 [facility] ALKALINE PHOS 140 U/L 45-117 [facility] TP 5.4 g/dL 6.0-7.8 [facility] ALB 2.5 g/dL 3.5-5.0 [facility] ESRD Dialysis patient Albumin reference range: 2.9-4.4 g/dL GL 2.9 g/dL 2.3-3.5 [facility] A/G 0.9 1.0-2.5 [facility] T. BILIRUBIN 0.5 mg/dL 0.1-1.1 [facility] The [employer]ension [place] Total Bilirubin is n ot recommended forpatients undergoing treatment with eltrombopag (Promacta)due to the potential for falsely elevated results. ALTI 36 U/L 6-54 [facility] Patients taking Sulfasalazine and/or Sul fapyridine may havefalsely depressed ALT levels. Patients should be drawn forALT before the initial administration of either drug. AST 25 U/L 6-38 [facility] Patients taking Sulfasalazine and/or Sul fapyridine may havefalsely depressed AST levels. Patients should be drawn forAST before the initial administration of either drug. ID Date Data Source [id number] 05/23/2020 05:14:00 AM EDT [facility] Name Value Range Interpretation Code Description Data Rosa rce(s) Supporting Document(s) WBC 12.48 x10E3/uL 4.0-10.5 [facility] RBC 2.65 x10E6/uL 4.20-5.40 [facility] Hemoglobin 8.0 g/dL 12.0-16.0 [facility] Hematocrit 24.7 % 37.0-47.0 [facility] MCV 93.2 fL 81.0-99.0 [facility] MCH 30.2 pg 27.0-31.0 [facility] MCHC 32.4 g/dL 32.7-35.6 [facility] RDW 14.8 % 11.5-14.0 [facility] Platelet count 146 x10E3/uL 150-450 [facility] MPV 10.1 fl 6.9-9.5 [facility] Neutrophils 88.5 % 34-64 [facility] Lymphocytes 4.8 % 25-45 L [facility] Monocytes 4.6 % 1.7-10.6 [facility] Eosinophils 0.2 % 0.4-7.0 [facility] Basophils 0.1 % 0.1-2.0 [facility] Imm. Gran. 1.8 % 0.1-2.0 [facility] Abs. Neutro. 11.04 x10E3/uL 1.2-7.6 [facility] Abs. Lymph. 0.60 x10E3/uL 1.0-3.5 [facility] Abs. Curry. 0.58 x10E3/uL 0.1-1.0 [facility] Abs. Eosin. 0.02 x10E3/uL 0.1-0.7 [facility] Abs. Baso. 0.01 x10E3/uL 0.0-0.1 [facility] Abs. Imm. Gran. 0.23 x10E3/uL 0.0-0.1 [facility] ANRBC% 0 % 0 [facility] ID Date Data Source [id number] 05/22/2020 04:34:00 PM EDT [facility] Name Value Range Interpretation Code Description Data Rosa rce(s) Supporting Document(s) FGLU 348 mg/dL 70-110 [facility] ID Date Data Source [id number] 05/22/2020 02:57:00 PM EDT [facility] [place] [address] [id number] NOTEPATIENT NAME: ELA PONCE BATTENKEIKO PHYSICIAN: MICHAEL WANG MDAUTHOR: Breezy GA, Zhang. DATE: 05/18/20 MR#: [id number] NOTE DATE: 05/22/20 RM#: [id number] TIME: 1531 : 45SubjectiveCC/Hx Present IllnessBack painEvents Since Last EntryCurrently alert oriented x3. Very poor historian. On chronic oxygen. Patientcomfortable, reported chronic back pain. Following command, tolerating p.o.almost back to baseline. Denies chest pain. Afebrile. All other review ofsystem negativeObjectiveVital SignsVital Signs-24 [id number] 3181 2200 0128Temp 99.3 99.0 98.7Pulse 95 95 91Resp 16 16 16B/P 190/88 144/77 147/63B/P MeanPulse Ox 100 98 95O2 Delivery Nasal cannula Nasal cannula Nasal cannula Nasal cannulaO2 Flow Rate 3L 2 2L 0QjM222/05/22695290 4789 0835 1000 1426Temp 98.6 97.3Pulse 95 98Resp 16 17B/P 165/75 163/83 163/83 164/80B/P MeanPulse Ox 96 95O2 Delivery Nasal cannula Nasal cannula Nasal cannulaO2 Flow Rate 2 2L 8DSuS7Crylbv/OutputIntake/Output Summary 24 hours04/11 1900 04/12 0700Intake Total 3510Output Total 600Balance 2910Intake, IV 1410Intake, Oral 2100Number 1BowelMovementsOutput, Urine 600Current MedicationsInsulin Detemir (Levemir) 8 UNIT DAILY SUBCUT (UNVr)Prednisone (Orasone) 30 MG DAILY PO (UNVr)Isosorbide Mononitrate (Imdur) 30 MG DAILY PO (UNVr)Amlodipine Besylate (Norvasc) 10 MG DAILY POOxycodone HCl (Oxyir) 10 MG Q6HPRN PRN POHydralazine HCl (Apresoline) 50 MG TID POLevothyroxine Sodium (Synthroid) 75 MCG DAILY PONicotine (Nicoderm) 21 MG DAILY TOPInsulin Aspart (Humalog Insulin) Low dose sliding scaleAC MEAL SUBCUTAtorvastatin Calcium (Lipitor) 40 MG QHS POBuspirone HCl (Buspar) 5 MG BID POChlorhexidine Gluconate (Chlorhexidine Gluconate) 0 BID MMInsulin Aspart (Humalog Insulin) 0 QHS SUBCUTMiscellaneous (Patch off) 1 PAT QHS NALorazepam (Ativan) 1 MG Q2HPRN PRN POAlbuterol/Ipratropium (Duoneb) 3 ML Q6HWA PRN INHClopidogrel Bisulfate (Plavix) 75 MG DAILY PODuloxetine HCl (Cymbalta) 60 MG DAILY POFolic Acid (Folvite) 1 MG DAILY POLisinopril (Prinivil,Zestril) 40 MG DAILY POMultivitamins (Multivitamin) 1 TAB DAILY POSodium Chloride (Saline Flush Syr(10ML)) 10 ML Q12H IVThiamine HCl (VITAMIN B1) 100 MG DAILY POVancomycin HCl (Vancocyin) 750 MG Q12H@0400,1600 IVPiperacillin Sod/Tazobactam Sod (Zosyn) 3.375 GM Q6H IVHeparin Sodium (Porcine) (Heparin Sodium) 5,000 UNIT Q8H SUBCUTHeparin Sodium (Porcine) (Heparin syringe) 100 UNIT Q12H IVAcetaminophen (Tylenol) 650 MG Q6HPRN PRN POAcetaminophen (Tylenol) 650 MG Q6HPRN PRN POGlucose (Insta-Glucose) 15 GM DAILY NEEDED PRN POSodium Chloride (Saline Flush Syr(10ML)) 10 ML QIDPRN PRN IVExamGeneral Appearance no acute distress, afebrile, alert, awake, conversantHead normocephalicENT dry mucosal membranesEye AssessementR,L,Bilateral bilateralAss essment: EOMINeck no JVDCardiovascular regular rate, no gallop, no rub, normal heart soundsRespiratory clear to auscultation (anteriorly), no distress, aerating well, onoxygenAbdomen soft, no distention, normal bowel sounds, no guardingUrinary no flank pain, Garcia catheterExtremities no cyanosis, no edema, normal pulses, ecchymosisMuscoskeletal normal inspectionNeurological alert, normal speech, no motor deficits, CNII-XXII grossly intact,no facial asymmetry, Moves all 4 extremity, alert oriented x2,Skin AssessmentSkin dry, Bilateral upper extremity ecchymosis and skin tearPsych/Mental Status mood n eutralResultsLaboratory DataRecent Labs-24 hours05/[id number] 6287 0615ChemistrySodium (136 - 147 mmol/L) 145Potassium (3.5 - 5.1 mmol/L) 3.9Chloride (99 - 110 mmol/L) 114 HSerum Bicarbonate (20 - 33 mmol/L) 27Anion Gap (10.0 - 20.0) 7.9 LBUN (7 - 23 mg/dL) 23Creatinine (0.500 - 1.300 mg/dL) 0.901Estimated GFR/1.73 m2 (mL/min) > 60Glucose (70 - 110 mg/dL) 217 HPOC Glucose (70 - 110 mg/dL) 210 H 287 HCalcium (8.3 - 10.7 mg/dL) 8.0 LMagnesium (1.6 - 2.6 mg/dL) 2.0Total Bilirubin (0.1 - 1.1 mg/dL) 0.5AST (6 - 38 U/L) 27ALT (6 - 54 U/L) 38Alkaline Phosphatase (45 - 117 U/L) 144 HC- Reactive Protein (0.00 - 0.49 mg/dL) 0.96 HTotal Protein (6.0 - 7.8 g/dL) 5.4 LAlbumin (3.5 - 5.0 g/dL) 2.5 LGlobulin (2.3 - 3.5 g/dL) 2.9Albumin/Globulin Ratio (1.0 - 2.5) 0.9 LHematologyWBC (4.0 - 10.5 x10E3/uL) 13.34 HRBC (4.20 - 5.40 x10E6/uL) 2.90 LHgb (12.0 - 16.0 g/dL) 8.8 LHct (37.0 - 47.0 %) 27.2 LMCV (81.0 - 99.0 fL) 93.8MCH (27.0 - 31.0 pg) 30.3MCHC (32.7 - 35.6 g/dL) 32.4 LRDW (11.5 - 14.0 %) 15.3 HPlt Count (150 - 450 x10E3/uL) 141 LMPV (6.9 - 9.5 fl) 10.1 HImmature Gran % (Auto) (0.1 - 2.0 %) 1.0Neut % (Auto) (34 - 64 %) 84.2 HLymph % (Auto) (25 - 45 %) 7.2 LMono % (Auto) (1.7 - 10.6 %) 6.2Eos % (Auto) (0.4 - 7.0 %) 1.3Baso % (Auto) (0.1 - 2.0 %) 0.1Abs Immat Gran (auto) (0.0 - 0.1 x10E3/uL) 0.14 HAbsolute Neuts (auto) (1.2 - 7.6 x10E3/uL) 11.22 HAbsolute Lymphs (auto) (1.0 - 3.5 x10E3/uL) 0.96 LAbsolute Monos (auto) (0.1 - 1.0 x10E3/uL) 0.83Absolute Eos (auto) (0.1 - 0.7 x10E3/uL) 0.18Absolute Basos (auto) (0.0 - 0.1 x10E3/uL) 0.01Nucleated RBC % (auto) (0 %) 0MicrobiologyMicrobiology Last 24 hours05/21 1550 URINE: Urine Culture - RESResults Reviewed labs reviewedAssessment/PlanProblem List1. B ack painStatus AcuteA&PDegenerative disc disease, spinal stenosisPatient complained of back pain. On examination had lumbar and thoracictenderness in the setting of increasing CRP and increasing leukocytosis. MRIappreciated with no evidence of discitis, likely worsening pain due to subcuvertebral body fracture-Leukocytosis trending down. C-reactive protein xndmfat-Nekhub-nc blood cultures-Pain management.2. PneumoniaStatus AcuteA&PC-reactive protein improvingZosyn. IV, MRSA screening negative, vancomycin discontinued-Follow blood cultures.Pneumonia type: due to methicillin-resistant Staphylococcus aureus (MRSA)Laterality: unspecified laterality Lung location: unspecified part of lungQualified Code: J15.212 - Pneumonia due to Methicillin resistant Staphylococcusaureus3. COPD (chronic obstructive pulmonary disease)Status AcuteA&Mendoza 2.5 L oxygen at baseline, DuoNeb as needed, taper steroid on prednisone ,continue antibiotics as above4. UTI (urinary tract infection)Status AcuteA&PUTI questionable pyelonephritis on CT abdomen pelvis-Continue with Zosyn wg-Dwgtfn-zy urine culture.5. HLD (hyperlipidemia)Status ChronicA&PContinue statin6. Spinal stenosisStatus ChronicA&PChronic history of spinal stenosis continue with pain management.7. DepressionStatus ChronicA&PContinue with duloxetine., BuSpar8. HypothyroidismStatus ChronicA&PCheck TSH.-Continue with levothyroxine.9. HTN (hypertension)Status ChronicA&P-Continue with lisinopril and increase hydralazine 50 mg p.o. 3 times daily,restarting NorvascImdur 30 mg p.o. daily added for better blood pressure control-Monitor blood pressure.10. CKD (chronic kidney disease)Status ChronicA&PHistory of CKD. SU at [facility].-Monitor renal function.11. DiabetesStatus ChronicA&PComplicated with hypoglycemia and hyperglycemiaLevemir 8 units daily, continue NovoLog via protocol, close monitoring, [id number]. AnxietyStatus AcuteA&Mendoza chronic benzodiazepines. Will continue.13. PVD (peripheral vascular disease)Status ChronicA&PHistory of stent placement.Continue with Plavix, statin-Continue to monitor.14. DebilityStatus ChronicA&P-Supportive care-Consider PT/OT when patient is more alert.15. HypoalbuminemiaStatus ChronicA&PEncourage p.o. intake. Nutrition supplementation.Ensure p.o. 3 times daily.16. Polysubstance abuseStatus ChronicA&PThiamine, folic acid, multivitamin, Ativan as needed for [id number]. HypernatremiaStatus AcuteA&AZdyijrxtt74. HyperglycemiaStatus AcuteA&PSecondary to steroid, will be very cautious in increasing coverage due toepisode of hypoglycemia, taper steroidAdditional Pbuep39-gvjr-kje female patient underlying medical history of COPD O2 dependent,spinal stenosis, depression, dyslipidemia, type 2 diabetes, nicotine addiction,anxiety, hypothyro idism, debility, CKD, peripheral vascular disease,hypoalbuminemia, polysubstance abuse, initially admitted to [facility] for right upper lobe pneumonia, sepsis, deconditioning with frequentfall, transferred given complains of back pain and worsening leukocytosisDVT prophylaxis Heparin subcuDisposition pending clinical improvement, [place] [facility]Resuscitation status Full codePlan discussed with patientCase discussed with case management specialist, nursing staffVTE ProphylaxisVTE Prophylaxis: Heparin subcu.DATE SIGNED: 05/22/20 Electronically SignedTIME SIGNED: 1531 SAAD FRIED MD Name Value Range Interpretation Code Description Data Rosa e(s) Supporting Document(s) ID Date Data Source [id number] 05/22/2020 04:14:00 PM EDT [facility] Name Value Range Interpretation Code Description Data Rosa rce(s) Supporting Document(s) VANCOMYCIN TROU 22.1 ug/mL 5-10 PH [facility] FOR SKIN AND SKIN STRUCTURE INFECTIONS, GUIDELINES RECOMMENDA TROUGH OF 10. FOR SEVERE INFECTIONS, (PNEUMONIA, OSTEOMYELITIS, MENINGITISAND BACTEREMIA) A TARGET TROUGH OF 15 TO 20 IS RECOMMENDED. ID Date Data Source [id number] 05/22/2020 02:26:00 PM EDT [facility] Exam Number: [id number] OF EXAMINATIO N: 05/22/2020 9:00 EDTMRI L-SPINE W/O FOL BY W/ CONTHISTORY: TendernessMulti-echo, multiplanar imaging of the lumbar spine was obtainedwithout and with contrast .FINDINGS:Decreased signal intensity on T2-weighted images is present in thelumbar intervertebral discs. The L3-4 through L5-S1 intervertebraldiscs are decreased in height. These findings are consistent with discdegeneration.I there is no disc bulge or herniation at the L1-2 level. The O4mdcpfh exit the neural foramina without compression.A diffuse disc bulge is present at the L2-3 level. There ishypertrophy of the ligamenta flava and posterior articulating facets.A 4 mm synovial cyst is present medial to the left L2-3 facet joint.These findings produce moderate central canal stenosis. The L2 nervesexit the neural foramina without compression.A diffuse disc bulge is present at the L3-4 level. There ishypertrophy of the ligamenta flava and posterior articulating facets.These findings produce mild central canal stenosis. The L3 nerves exitthe neural foramina without compression.A diffuse disc bulge is present at the L4-5 level. There ishypertrophy of the ligamenta flava and posterior articulating facets.There are 7 mm of grade 1 spondylolisthesis of L4 on 5. These findingsproduce severe central canal stenosis. There is compression of theright L4 nerve in the neural foramen. The left L4 nerve exits theneural foramen without compression.A diffuse disc bulge is present at the L5-S1 level. There is minimalcompression of the thecal sac. There is hypertrophy of the posteriortechnique and facets. The L5 nerves exit the neural foramina withoutcompression.The conus medullaris is normal in appearance terminating at the levelof the L1 vertebral body. Increased signal intensity on T2-weightedimages is present in the endplates of the L5 and S1 vertebral bodies.This represents degenerative change. A linear focus of decreased andincreased signal intensity on T1 and T2-weighted images respectivelyis present in the superior aspect of the S2 vertebral body. There is amild heterogeneous enhancement with contrast. This most likelyrepresents an acute to subacute fracture.IMPRESSION:1. Moderate central canal stenosis at the L2-3 level secondary to discbulge, ligamentous and facet hypertrophy and a synovial cyst.2. Mild central canal stenosis at the L3-4 level secondary to discbulge, ligamentous and facet hypertrophy.3. Severe central canal stenosis at the L4-5 level secondary to discbulge, ligamentous and facet hypertrophy and grade 1spondylolisthesis. There is compression of the right L4 nerve in theneur al foramen.4. Diffuse disc bulge at the L5-S1 level with minimal thecal saccompression.5. There is a linear focus of decreased and increased signal intensityon T1 and T2-weighted images respectively in the superior aspect ofthe S2 vertebral body. There is mild heterogeneous enhancement withcontrast. This most likely represents an acute to subacute fracture.Electronically signed in PS360 by: Giacomo Simon M.D. 05/22/2020 14:13EDT Reported By: Kemal SIMON M.D. Signed By: [place] SIMON M.D. Name Value Range Interpretation Code Description Data Rosa rce(s) Supporting Document(s) ID Date Data Source [id number] 05/22/2020 12:41:00 PM EDT [facility] Progress Note GeneralEncounter:Chart re viewed. Patient interviewed and examined. Labs, medications and orders viewed by me. SubjectiveGeneral Condition:74 year old female admitted for treatment of her right lung pneumonia complicating COPD oxygen dependent status in a very frail 74 year old female in a state of deconditioning and also suffering from chronic back pain and related to her chronic pain long history of opiate and substance use.She has periods of severe anxiety and agitation especially at bed time.She denies any chest pain or chest pressure .She admits to chronic shortness of breath.She admits to productive cough with green sputum.She denies abdominal pain, diarrhea, blood in stool She admits to constipation. She denies any urinary symptoms. Her appetite is improving. She is anxious. We are obtaining MRSA sceen and soputum CTX and Mrs Ponce has had MRSA Pneumonia in 2016. ObjectiveNote:Temp; 99.1, Pulse; 96, Resp: 16, B/P: 139/73 SaO2: 97, O2 Status: 2-3 L of oxygen EENT PERRL/EOMI, normal ENT inspectionNeck normal inspection, non-tender, suppleRespiratory chest non-tender, RUL and RLL with rhonchi and ralesCardiovascular regular rate/rhythm, no edema, no gallop, no JVDGastrointestinal normal bowel sounds, non tender, soft, no organomegaly, no pulsatile massBack normal inspection, no CVA tendernessExtremities non-tender, normal range of motion, normal inspection, normal capillary refill, no calf tendernessNeurologic/Psychiatric alert, child monitor II- XII nml as tested, normal mood/affect, no motor/sensory deficits, oriented x 3Skin normal color, warm/dryLymphatic no adenopathy Other:Laboratory Tests 05/15 06 Chemistry Sodium (136 - 145 mmol/L) 139 Potassium (3.5 - 5.1 mmol/L) 4.6 Chloride (98 - 107 mmol/L) 103 Carbon Dioxide (21 - 32 mmol/L) 26 Anion Gap (5 - 12 mmol/L) 10.0 BUN (7 - 18 mg/dL) 27 H Creatinine (0.6 - 1.0 mg/dL) 1.08 H Estimated GFR (MDRD) (mL/min) 50 Glucose (74 - 106 mg/dL) 138 H Calcium (8.5 - 10.1 mg/dL) 9.1 Total Bilirubin (0.2 - 1.0 mg/dL) 0.3 AST (15 - 37 U/L) 27 ALT (12 - 78 U/L) 37 Alkaline Phosphatase (46 - 116 U/L) 98 Total Protein (6.4 - 8.2 g/dl) 5.6 L Albumin (3.4 - 5.0 gm/dL) 2.8 L Hematology WBC (4.0 - 10.0 K/mm3) 13.5 H RBC (4.00 - 5.50 M/mm3) 3.64 L Hgb (12.0 - 16.0 gm/dL) 11.1 L Hct (36.0 - 48.8 %) 32.7 L MCV (80 - 96 fl) 89.8 MCH (27.0 - 31.0 pg) 30.5 MCHC Differential (32.0 - 3 6.0 g/dl) 33.9 RDW (10.0 - 14.5 %) 14.8 H Plt Count (172 - 450 K/mm3) 182 MPV (9.0 - 13.0 fl) 10.0 Gran % (Auto) (50 - 80.0 %) 93.7 H Gran # (2.0 - 8.00 K/mm3) 12.7 H Immature Gran % (0.0 - 0.2 %) 1.2 H Lymphocytes % (25.0 - 50.0 %) 2.0 *L Monocytes % (2.0 - 10.0 %) 3.0 Eosinophils % (0 - 5.0 %) 0.0 Basophils % (0.0 - 2.0 %) 0.1 Immature Gran # (0.0 - 0.2 K/mm3) 0.2 Lymphocytes # (1.0 - 5.0 K/mm3) 0.3 L Monocytes # (0.10 - 1.20 K/mm3) 0.4 Eosinophils # (0.0 - 0.5 K/mm3) 0.0 Basophils # (0.0 - 0.2 K/mm3) 0.0 Current MedicationsAcetaminophen 975 MG BID PO Acetaminophen 650 MG Q4H PRN PO pain, fever and/or headache Albuterol Sulfate 2.5 MG Q4H PRN IH she breath/wheezing Albuterol/Ipratropium 3 ML Q6H.RT IH Aluminum Hydroxide 30 ML Q4H PRN PO INDIGESTION Amlodipine Besylate 10 MG DAILY PO Atorvastatin Calcium 40 MG HS PO Ceftriaxone Sodium 2 GM Q24H IVPB Clopidogrel Bisulfate 75 MG DAILY PO Duloxetine HCl 60 MG HS PO Famotidine 20 MG BID PO Heparin Sodium 5,000 UNIT BID SC Hydralazine HCl 50 MG BID PO Insulin Glargine 20 U HS SC Insulin Human Regular MODERATE DOSE - Sliding Scale < 60 MG/DL * Follow Hypoglycemic Protocol 61 - 150 No COVERAGE 151 - 180 2 UNITS 181 - 240 4 UNITS 241 - 300 6 UNITS 301 - 350 8 UNITS 351 - 400 10 UNITS > 400 Serum Glucose, Notify Provider ACHS SC Levofloxacin 150 ML Q24H IVPB Levothyroxine Sodium 75 MCG DAILY 0700 PO Nicotine 1 PATCH DAILY TD Nutritional Formula (Lactose Free) 1 CAP BID PO Oxycodone HCl 10 MG BID PO Oxycodone HCl 5 MG Q6H PRN PO moderate to severe pain Prednisone 20 MG BID PO Vital Signs 05/14 05/14 05/15 05/15 04 1818 2300 0300 0645 1030 Temp 98.9 98.4 98.5 98.2 97.0 Pulse 97 96 94 90 101 Resp 20 24 20 16 16 B/P 123/71 130/72 136/67 182/82 152/87 B/P Mean Pulse Ox 99 98 100 94 99 O2 Delivery O2 Flow Rate FiO2 04/05 1445 Temp 99.4 Pulse 97 Resp 22 B/P 146/78 B/P Mean Pulse Ox 98 O2 Delivery O2 Flow Rate FiO2 Assessment/PlanAllergiesCoded Allergies:Sulfa (Sulfonamide Antibiotics) (Mild, Itching, rash 10/13/15)bacitracin (Mild, Itching 10/13/15)cortisone (Mild, Itching 10/13/15)red (food color) (Mild, Rash 10/13/15)tramadol (Mild, Itching 10/13/15)fluoxetine (unknown 10/13/15)neomycin (unknown 10/13/15)polymyxin B (unknown 10/13/15) Problem List 1. Right upper lobe pneumonia A&PRight sided pneumonia. Continue IV antibiotics as well as respiratory therapy. Patient was oxygen dependent before her recent pneumonia. Continue supplementation of oxygen " CT of the chest:IMPRESSION: 1. Right upper and lower lobe infiltrates unchanged compared to the previousstudy.2. There are parenchymal densities in the left lower lobe consistent withatelectasis or infiltrate.3. Very small pericardial effusion.4. Small hiatal hernia." 2. COPD (chronic obstructive pulmonary disease) A&PSevere COPD in a very heavy smoker (2 packs a day). Wo rsening of her already impaired resp function with current infection. 3. Chronic kidney disease, stage III (moderate) A&Pcontinue good hydration as well as avoidance of nephrotoxic subst. 4. Spinal stenosis of lumbar region A&PChronic with neurogenic claudication and associated years of heavy use of opiates for pain control 5. Depression A&PContinue Duloxetine 60 mg po daily 6. Hyperlipidemia A&PContinue Statin 7. Peripheral vascular disease A&PSevere with hx of stent placement on lower extr. Continue secondary prevention complicated by patients tobacco use. 8. Diabetes mellitus type 2 with complications, uncontrolled A&PMrs Couture was nonadherent to her treatment and diet at home Continue ADA diet Lantus insulin and sliding scale 9. Hypoalbuminemia A&PLikely multifactorial including nutritional. Continue supplementation 10. Hypothyroidism A&PContinue Synthroid Smoking Cessation Counseling* I have counseled the patient on the dangers of tobacco use for more than 3 minutes.* The patient was advised to quit tobacco use. I reviewed the various strategiesof quitting with the patient. Disposition PlanHospital Day # 5Anticipated Discharge To be decided. Patient is not ready of safe for discharge IV Access/Tubes/Garcia CatheterIV Access:Peripheral accessTubes: NoneFoley Catheter: None VTE ProphylaxisVTE Prophylaxis: Heparin SC Name Value Range Interpretation Code Description Data Rosa rce(s) Supporting Document(s) ID Date Data Source [id number] 05/22/2020 11:35:00 AM EDT [facility] Exam Number: [id number] OF EXAMINATIO N: 05/22/2020 9:00 EDTMRI T-SPINE W/O FOL BY W/ CONTHISTORY: TendernessMulti-echo, multiplanar imaging of the thoracic spine was obtainedwithout and with contrast .FINDINGS:A disc bulge is present at the T3-4 level. There is minimal effacementof the thecal sac without spinal cord compression. The T3 neuralforaminaare patent.A small central disc protrusion is present at the T4-5 level. Thereis minimal effacement of the thecal sac without spinal cordcompression. The T4 neural foramina are patent.A small central disc protrusion is present at the T5-6 level. Thereis minimal effacement of the thecal sac without spinal cordcompression. The T5 neural foramina are patent.A small right paracentral and intraforaminal disc protrusion arepresent at the T8- 9 level. There is hypertrophy of the posteriorarticulating facets. There is minimal effacement of the thecal sacwithout spinal cord compression. The T8 and neural foramina are notseen.A disc bulge is present at the T9-10 level. There is hypertrophy ofthe posterior articulating facets. There is mild effacement of thethecal sac without spinal cord compression. There is compression ofthe right T9 nerve in the neural foramen. The left T9 neural foramenis patent.There is no other disc bulge or herniation. The remaining neuralforamina are patent. The spinal cord is normal in signal intensity.There is loss of height of the T3-4 and through T9-10 intervertebraldiscs. This represents disc degeneration. Increased signal intensityon T2-weighted images is present in the endplates of the T3-4 throughT9-10 intervertebral discs. There is slight enhancement in theendplates of several thoracic vertebral bodies. These findingsrepresent degenerative change. There is no subluxation. A lipoma ispresent in the left posterior subcutaneous tissues at the T5-6 level.The lipoma measures 3.1 cm in transverse by 1.2 cm in AP dimensions.IMPRESSION:1. Small disc protrusions at the T3-4 through T5-6 and T8-9 levelswithout spinal cord compression.2. Disc bulge at the T9-10 level without spinal cord compression.There is compression of the right T9 nerve in the neural foramen.3. There is a small lipoma in the left posterior subcutaneous tissuesat the T5-6 level.Electronically signed in PS360 by: Giacomo Simon M.D. 05/22/2020 11:21EDT Reported By: Kemal SIMON M.D. Signed By: [place] SIMON M.D. Name Value Range Interpretation Code Description Data Rosa rce(s) Supporting Document(s) ID Date Data Source [id number] 05/23/2020 12:09:00 AM EDT [facility] Name Value Range Interpretation Code Description Data Rosa rce(s) Supporting Document(s) FGLU 325 mg/dL 70-110 [facility] ID Date Data Source [id number] 05/22/2020 07:22:00 AM EDT [facility] Name Value Range Interpretation Code Description Data Rosa rce(s) Supporting Document(s) C-REACTIVE PROT 0.96 mg/dL 0.00-0.49 [facility] ID Date Data Source [id number] 05/22/2020 07:22:00 AM EDT [facility] Name Value Range Interpretation Code Description Data Rosa rce(s) Supporting Document(s) MAGNESIUM 2.0 mg/dL 1.6-2.6 [facility] ID Date Data Source [id number] 05/22/2020 07:22:00 AM EDT [facility] Name Value Range Interpretation Code Description Data Rosa rce(s) Supporting Document(s) GLU 217 mg/dL 70-110 [facility] Patients taking Sulfasalazine may have f alsely depressedGlucose levels. Patients taking Sulfapyridine may havefalsely elevated Glucose levels. Patients should be drawnfor Glucose before the initial administration of eitherdrug. BUN 23 mg/dL 7-23 [facility] CRE 0.901 mg/dL 0.500-1.300 [facility] GFR > 60 mL/min [facility] CHLORIDE 114 mmol/L 99-110 [facility] NA 145 mmol/L 136-147 [facility] POTASSIUM 3.9 mmol/L 3.5-5.1 [facility] TCO2 27 mmol/L 20-33 [facility] ANION GAP 7.9 10.0-20.0 [facility] CA 8.0 mg/dL 8.3-10.7 [facility] ALKALINE PHOS 144 U/L 45-117 [facility] TP 5.4 g/dL 6.0-7.8 [facility] ALB 2.5 g/dL 3.5-5.0 [facility] ESRD Dialysis patient Albumin reference range: 2.9-4.4 g/dL GL 2.9 g/dL 2.3-3.5 [facility] A/G 0.9 1.0-2.5 [facility] T. BILIRUBIN 0.5 mg/dL 0.1-1.1 [facility] The Dimension [place] Total Bilirubin is n ot recommended forpatients undergoing treatment with eltrombopag (Promacta)due to the potential for falsely elevated results. ALTI 38 U/L 6-54 [facility] Patients taking Sulfasalazine and/or Sul fapyridine may havefalsely depressed ALT levels. Patients should be drawn forALT before the initial administration of either drug. AST 27 U/L 6-38 [facility] Patients taking Sulfasalazine and/or Sul fapyridine may havefalsely depressed AST levels. Patients should be drawn forAST before the initial administration of either drug. ID Date Data Source [id number] 05/22/2020 07:04:00 AM EDT [facility] Name Value Range Interpretation Code Description Data Rosa rce(s) Supporting Document(s) WBC 13.34 x10E3/uL 4.0-10.5 [facility] RBC 2.90 x10E6/uL 4.20-5.40 [facility] Hemoglobin 8.8 g/dL 12.0-16.0 [facility] Hematocrit 27.2 % 37.0-47.0 [facility] MCV 93.8 fL 81.0-99.0 [facility] MCH 30.3 pg 27.0-31.0 [facility] MCHC 32.4 g/dL 32.7-35.6 [facility] RDW 15.3 % 11.5-14.0 [facility] Platelet count 141 x10E3/uL 150-450 [facility] MPV 10.1 fl 6.9-9.5 [facility] Neutrophils 84.2 % 34-64 [facility] Lymphocytes 7.2 % 25-45 [facility] Monocytes 6.2 % 1.7-10.6 [facility] Eosinophils 1.3 % 0.4-7.0 [facility] Basophils 0.1 % 0.1-2.0 [facility] Imm. Gran. 1.0 % 0.1-2.0 [facility] Abs. Neutro. 11.22 x10E3/uL 1.2-7.6 [facility] Abs. Lymph. 0.96 x10E3/uL 1.0-3.5 [facility] Abs. Curry. 0.83 x10E3/uL 0.1-1.0 [facility] Abs. Eosin. 0.18 x10E3/uL 0.1-0.7 [facility] Abs. Baso. 0.01 x10E3/uL 0.0-0.1 [facility] Abs. Imm. Gran. 0.14 x10E3/uL 0.0-0.1 [facility] ANRBC% 0 % 0 [facility] ID Date Data Source [id number] 05/23/2020 09:11:00 AM EDT [facility] Name Value Range Interpretation Code Description Data Rosa rce(s) Supporting Document(s) FGLU 224 mg/dL 70-110 [facility] ID Date Data Source [id number] 05/23/2020 12:07:00 AM EDT [facility] Name Value Range Interpretation Code Description Data Rosa rce(s) Supporting Document(s) FGLU 201 mg/dL 70-110 [facility] ID Date Data Source [id number] 05/21/2020 06:03:00 PM EDT [facility] [address] [id number] NOTEPATIENT NAME: ALFREDO PONCENCHE BATTENDING PHYSICIAN: MICHAEL WANG, MDAUTHOR: Breezy GA, Zhang. DATE: 05/18/20 MR#: [id number] NOTE DATE: 05/21/20 RM#: [id number] TIME: 181 : 45SubjectiveCC/Hx Present IllnessBack painEvents Since Last EntryCurrently alert oriented x2. Very poor historian. On chronic oxygen. Patientcomfortable, reported chronic back pain. Following command, tolerating p.o.Seems more responsive today. Denies chest pain. Afebrile. All other reviewof system negativeObjectiveVital SignsVital Signs-24 HRS05/20050 2123 0142 0455 0802Temp 98.7 97.1 97.2Pulse 101 86 102Resp 18 17 22B/P 166/71 140/88 140/88B/P MeanPulse Ox 89 90 95O2 Delivery Nasal cannula Nasal cannula Nasal cannulaO2 Flow Rate 3L 2L [id number]/21830 1014 1350 1710Temp 97.6 98.2 99.3Pulse 97 100 95Resp 18 16 16B/P 140/86 152/86 158/78 190/88B/P MeanPulse Ox 98 98 100O2 Delivery Nasal cannula Nasal cannula Nasal cannulaO2 Flow Rate 2 3L 6GYhO6Cgonxw/OutputIntake/Output Summary 24 hours05/20 1900 05/21 0700Intake Total 1150 700Output Total 700 500Balance 450 200Intake, IV 550 200Intake, Oral 600 500Number 3BowelMovementsOutput, Urine 700 500Current MedicationsAmlodipine Besylate (Norvasc) 10 MG DAILY PO (UNVr)Oxycodone HCl (Oxyir) 10 MG Q6HPRN PRN POPrednisone (Orasone) 40 MG DAILY POHydralazine HCl (Apresoline) 50 MG TID POInsulin Detemir (Levemir) 6 UNIT DAILY SUBCUTLevothyroxine Sodium (Synthroid) 75 MCG DAILY PONicotine (Nicoderm) 21 MG DAILY TOPInsulin Aspart (Humalog Insulin) Low dose sliding scaleAC MEAL SUBCUTAtorvastatin Calcium (Lipitor) 40 MG QHS POBuspirone HCl (Buspar) 5 MG BID POChlorhexidine Gluconate (Chlorhexidine Gluconate) 0 BID MMInsulin Aspart (Humalog Insulin) 0 QHS SUBCUTMiscellaneous (Patch off) 1 PAT QHS NALorazepam (Ativan) 1 MG Q2HPRN PRN POAlbuterol/Ipratropium (Duoneb) 3 ML Q6HWA PRN INHClopidogrel Bisulfate (Plavix) 75 MG DAILY PODuloxetine HCl (Cymbalta) 60 MG DAILY POFolic Acid (Folvite) 1 MG DAILY POLisinopril (Prinivil,Zestril) 40 MG DAILY POMultivitamins (Multivitamin) 1 TAB DAILY POSodium Chloride (Saline Flush Syr(10ML)) 10 ML Q12H IVThiamine HCl (VITAMIN B1) 100 MG DAILY POVancomycin HCl (Vancocyin) 750 MG Q12H@0400,1600 IVPiperacillin Sod/Tazobactam Sod (Zosyn) 3.375 GM Q6H IVHeparin Sodium (Porcine) (Heparin Sodium) 5,000 UNIT Q8H SUBCUTHeparin Sodium (Porcine) (Heparin syringe) 100 UNIT Q12H IVAcetaminophen (Tylenol) 650 MG Q6HPRN PRN POAcetaminophen (Tylenol) 650 MG Q6HPRN PRN POGlucose (Insta-Glucose) 15 GM DAILY NEEDED PRN POSodium Chloride (Saline Flush Syr(10ML)) 10 ML QIDPRN PRN IVExamGeneral Appearance no acute distress, afebrile, alert, awake, conversantHead normocephalicENT dry mucosal membranesEye AssessementR,L,Bilateral bilateralAssessment: EOMINeck no JVDCardiovascular regular rate, no gallop, no rub, normal heart soundsRespiratory clear to auscultation (anteriorly), no distress, aerating well, onoxygenAbdomen soft, no distention, normal bowel sounds, no guardingUrinary no flank pain, Garcia catheterExtremities no cyanosis, no edema, normal pulsesMuscoskeletal normal inspectionNeurological alert, normal speech, no motor deficits, CNII-XXII grossly intact,no facial asymmetry, Moves all 4 extremity, alert oriented x2,Skin AssessmentSkin dry, intact, Bilateral upper extremity ecchymosis and skin tearPsych/Mental Status mood neutralResultsLaboratory DataRecent Labs-24 hours05/20132 0415 0700 0952ChemistrySodium (136 - 147 mmol/L) 146Potassium (3.5 - 5.1 mmol/L) 3.4 LChloride (99 - 110 mmol/L) 113 HSerum Bicarbonate (20 - 33 mmol/L) 27Anion Gap (10.0 - 20.0) 9.4 LBUN (7 - 23 mg/dL) 24 HCreatinine (0.500 - 1.300 mg/dL) 1.010Estimated GFR/1.73 m2 (mL/min) 57Glucose (70 - 110 mg/dL) 345 H 433 PH 453 PHPOC Glucose (70 - 110 mg/dL) 326 HCalcium (8.3 - 10.7 mg/dL) 8.3Magnesium (1.6 - 2.6 mg/dL) 2.2Total Bilirubin (0.1 - 1.1 mg/dL) 0.6AST (6 - 38 U/L) 32ALT (6 - 54 U/L) 46Alkaline Phosphatase (45 - 117 U/L) 148 HC- Reactive Protein (0.00 - 0.49 mg/dL) 2.01 HTotal Protein (6.0 - 7.8 g/dL) 5.5 LAlbumin (3.5 - 5.0 g/dL) 2.7 LGlobulin (2.3 - 3.5 g/dL) 2.8Albumin/Globulin Ratio (1.0 - 2.5) 1.0HematologyWBC (4.0 - 10.5 x10E3/uL) 13.24 HRBC (4.20 - 5.40 x10E6/uL) 2.89 LHgb (12.0 - 16.0 g/dL) 8.8 LHct (37.0 - 47.0 %) 26.9 LMCV (81.0 - 99.0 fL) 93.1MCH (27.0 - 31.0 pg) 30.4MCHC (32.7 - 35.6 g/dL) 32.7RDW (11.5 - 14.0 %) 15.1 HPlt Count (150 - 450 x10E3/uL) 153MPV (6.9 - 9.5 fl) 9.7 HImmature Gran % (Auto) (0.1 - 2.0 %) 1.5Neut % (Auto) (34 - 64 %) 94.0 HLymph % (Auto) (25 - 45 %) 2.4 LMono % (Auto) (1.7 - 10.6 %) 2.0Eos % (Auto) (0.4 - 7.0 %) 0 LBaso % (Auto) (0.1 - 2.0 %) 0.1Abs Immat Gran (auto) (0.0 - 0.1 x10E3/uL) 0.20 HAbsolute Neuts (auto) (1.2 - 7.6 x10E3/uL) 12.45 HAbsolute Lymphs (auto) (1.0 - 3.5 x10E3/uL) 0.32 LAbsolute Monos (auto) (0.1 - 1.0 x10E3/uL) 0.26Absolute Eos (auto) (0.1 - 0.7 x10E3/uL) 0.00 LAbsolute Basos (auto) (0.0 - 0.1 x10E3/uL) 0.01Nucleated RBC % (auto) (0 %) 0ToxicologyRandom Vancomycin (5 - 10 ug/mL) 21.2 PHMicrobiologyMicrobiology Last 24 hours05/21 1550 URINE: Urine Culture - RECDResults Reviewed labs reviewedAssessment/PlanProblem List1. Back painStatus AcuteA&PPatient complained of back pain. On examination had lumbar and thoracictenderness in the setting of increasing CRP and increasing leukocytosis.Chronic spinal stenosis, possible concern for discitis. Patient transferred [facility] for MRI thoracic and lumbar spine.-We will obtain MRI of the thoracic and lumbar spine.-Patient on vancomycin IV and Zosyn IV-Leukocytosis trending down. C-reactive protein twpvfih-Pgdetv-fa blood cultures-Pain management.unable to obtain MRI due to agitation on Friday, will reattempt on tomorrow2. PneumoniaStatus AcuteA&PC- reactive protein improvingContinue vancomycin and Zosyn.-Follow blood cultures.Pneumonia type: due to methicillin-resistant Staphylococcus aureus (MRSA)Laterality: unspecified laterality Lung location: unspecified part of lungQualified Code: J15.212 - Pneumonia due to Methicillin resistant Staphylococcusaureus3. COPD (chronic obstructive pulmonary disease)Status AcuteA&Mendoza 2.5 L oxygen at baseline, DuoNeb as needed, taper steroid on prednisone ,continue antibiotics as above4. UTI (urinary tract infection)Status AcuteA&PUTI questionable pyelonephritis on CT abdomen pelvis-Continue with Zosyn br-Ayimqd-gw urine culture.5. HLD (hyperlipidemia)Status ChronicA&PContinue statin6. Spinal stenosisStatus ChronicA&PChronic history of spinal stenosis continue with pain management.7. DepressionStatus ChronicA&PContinue with duloxetine., BuSpar8. HypothyroidismStatus ChronicA&PCheck TSH.-Continue with levothyroxine.9. HTN (hypertension)Status ChronicA&P-Continue with lisinopril and increase hydralazine 50 mg p.o. 3 times daily,restarting Norvasc-Monitor blood pressure.10. CKD (chronic kidney disease)Status ChronicA&PHistory of CKD. SU at [facility].-Monitor renal function.11. DiabetesStatus ChronicA&PComplicated with hypoglycemia and hyperglycemiaLevemir 6 units daily, continue NovoLog via protocol, close monitoring, [id number]. AnxietyStatus AcuteA&Mendoza chronic benzodiazepines. Will continue.13. PVD (peripheral vascular disease)Status ChronicA&PHistory of stent placement.Continue with Plavix, statin-Continue to monitor.14. DebilityStatus ChronicA&P-Supportive care- Consider PT/OT when patient is more alert.15. HypoalbuminemiaStatus ChronicA&PEncourage p.o. intake. Nutrition supplementation.Ensure p.o. 3 times daily.16. Polysubstance abuseStatus ChronicA&PThiamine, folic acid, multivitamin, Ativan as needed for ezbtkyydoh28. HypernatremiaStatus AcuteA&PLikely secondary to IV fluids, encourage oral hydration. Wkyifsevf38. HyperglycemiaStatus AcuteA&PSecondary to steroid, will be very cautious in increasing coverage due toepisode of hypoglycemia, taper steroidAdditional [id number] female patient underlying medical history of COPD O2 dependent,spinal stenosis, depression, dyslipidemia, type 2 diabetes, nicotine addiction,anxiety, hypothyroidism, debility, CKD, peripheral vascular disease,hypoalbuminemia, polysubstance abuse, initially admitted to [facility] for right upper lobe pneumonia, sepsis, deconditioning with frequentfall, transferred given complains of back pain and worsening leukocytosisDVT prophylaxis Heparin subcuDisposition pending clinical improvement we will reattempt to get MRIResuscitation status Full codeCase discussed with case management specialist, nursing staffVTE ProphylaxisVTE Prophylaxis: Heparin subcu.DATE SIGNED: 05/21/20 Electronically SignedTIME SIGNED: 1814 SAAD FRIED MD Name Value Range Interpretation Code Description Data Rosa rce(s) Supporting Document(s) ID Date Data Source [id number] 05/21/2020 06:55:00 PM EDT [facility] Name Value Range Interpretation Code Description Data Rosa rce(s) Supporting Document(s) FGLU 287 mg/dL 70-110 [facility] ID Date Data Source [id number] 05/22/2020 02:28:00 AM [facility] Name Value Range Interpretation Code Description Data Rosa rce(s) Supporting Document(s) FGLU 210 mg/dL 70-110 [facility] ID Date Data Source [id number] 05/21/2020 06:53:00 PM EDT [facility] Name Value Range Interpretation Code Description Data Rosa rce(s) Supporting Document(s) FGLU 343 mg/dL 70-110 [facility] ID Date Data Source [id number] 05/21/2020 10:26:00 AM EDT [facility] COMMENTS TO LAB: CRITICAL HIGH Name Value Range Interpretation Code Description Data Rosa rce(s) Supporting Document(s) GLU 453 mg/dL 70-110 [facility] Patients taking Sulfasalazine may have f alsely depressedGlucose levels. Patients taking Sulfapyridine may havefalsely elevated Glucose levels. Patients should be drawnfor Glucose before the initial administration of eitherdrug. ID Date Data Source [id number] 05/21/2020 07:55:00 AM EDT [facility] COMMENTS TO LAB: CRHI BS Name Value Range Interpretation Code Description Data Rosa rce(s) Supporting Document(s) GLU 433 mg/dL 70-110 [facility] Patients taking Sulfasalazine may have f alsely depressedGlucose levels. Patients taking Sulfapyridine may havefalsely elevated Glucose levels. Patients should be drawnfor Glucose before the initial administration of eitherdrug. ID Date Data Source [id number] 05/21/2020 05:21:00 AM EDT [facility] Name Value Range Interpretation Code Description Data Rosa rce(s) Supporting Document(s) VANCOMYCIN RAND 21.2 ug/mL 5-10 [facility] ID Date Data Source [id number] 05/21/2020 05:09:00 AM EDT [facility] Name Value Range Interpretation Code Description Data Rosa rce(s) Supporting Document(s) C-REACTIVE PROT 2.01 mg/dL 0.00-0.49 [facility] ID Date Data Source [id number] 05/21/2020 05:09:00 AM EDT [facility] Name Value Range Interpretation Code Description Data Rosa rce(s) Supporting Document(s) MAGNESIUM 2.2 mg/dL 1.6-2.6 N [facility] ID Date Data Source [id number] 05/21/2020 05:09:00 AM EDT [facility] Name Value Range Interpretation Code Description Data Rosa rce(s) Supporting Document(s) GLU 345 mg/dL 70-110 [facility] Patients taking Sulfasalazine may have f alsely depressedGlucose levels. Patients taking Sulfapyridine may havefalsely elevated Glucose levels. Patients should be drawnfor Glucose before the initial administration of eitherdrug. BUN 24 mg/dL 7-23 [facility] CRE 1.010 mg/dL 0.500-1.300 [facility] GFR 57 mL/min [facility] CHLORIDE 113 mmol/L 99-110 [facility] NA 146 mmol/L 136-147 [facility] POTASSIUM 3.4 mmol/L 3.5-5.1 [facility] TCO2 27 mmol/L 20-33 [facility] ANION GAP 9.4 10.0-20.0 [facility] CA 8.3 mg/dL 8.3-10.7 [facility] ALKALINE PHOS 148 U/L 45-117 [facility] TP 5.5 g/dL 6.0-7.8 [facility] ALB 2.7 g/dL 3.5-5.0 [facility] ESRD Dialysis patient Albumin reference range: 2.9-4.4 g/dL GL 2.8 g/dL 2.3-3.5 [facility] A/G 1.0 1.0-2.5 [facility] T. BILIRUBIN 0.6 mg/dL 0.1-1.1 [facility] The Dimension [place] Total Bilirubin is n ot recommended forpatients undergoing treatment with eltrombopag (Promacta)due to the potential for falsely elevated results. ALTI 46 U/L 6-54 [facility] Patients taking Sulfasalazine and/or Sul fapyridine may havefalsely depressed ALT levels. Patients should be drawn forALT before the initial administration of either drug. AST 32 U/L 6-38 [facility] Patients taking Sulfasalazine and/or Sul fapyridine may havefalsely depressed AST levels. Patients should be drawn forAST before the initial administration of either drug. ID Date Data Source [id number] 05/21/2020 04:46:00 AM EDT [facility] Name Value Range Interpretation Code Description Data Rosa rce(s) Supporting Document(s) WBC 13.24 x10E3/uL 4.0-10.5 [facility] RBC 2.89 x10E6/uL 4.20-5.40 L [facility] Hemoglobin 8.8 g/dL 12.0-16.0 L [facility] Hematocrit 26.9 % 37.0-47.0 L [facility] MCV 93.1 fL 81.0-99.0 N [facility] MCH 30.4 pg 27.0-31.0 N [facility] MCHC 32.7 g/dL 32.7-35.6 N [facility] RDW 15.1 % 11.5-14.0 [facility] Platelet count 153 x10E3/uL 150-450 [facility] MPV 9.7 fl 6.9-9.5 [facility] Neutrophils 94.0 % 34-64 [facility] Lymphocytes 2.4 % 25-45 [facility] Monocytes 2.0 % 1.7-10.6 [facility] Eosinophils 0 % 0.4-7.0 [facility] Basophils 0.1 % 0.1-2.0 [facility] Imm. Gran. 1.5 % 0.1-2.0 [facility] Abs. Neutro. 12.45 x10E3/uL 1.2-7.6 [facility] Abs. Lymph. 0.32 x10E3/uL 1.0-3.5 [facility] Abs. Curry. 0.26 x10E3/uL 0.1-1.0 [facility] Abs. Eosin. 0.00 x10E3/uL 0.1-0.7 [facility] Abs. Baso. 0.01 x10E3/uL 0.0-0.1 [facility] Abs. Imm. Gran. 0.20 x10E3/uL 0.0-0.1 [facility] ANRBC% 0 % 0 [facility] DIFFERENTIAL CONFIRMED BY SLIDE REVIEW. ID Date Data Source [id number] 05/21/2020 12:46:00 AM EDT [facility] Name Value Range Interpretation Code Description Data Rosa rce(s) Supporting Document(s) FGLU 326 mg/dL 70-110 [facility] ID Date Data Source [id number] 05/20/2020 08:01:00 PM EDT [facility] Name Value Range Interpretation Code Description Data Rosa rce(s) Supporting Document(s) FGLU 71 mg/dL 70-110 [facility] ID Date Data Source [id number] 05/20/2020 03:28:00 PM EDT [facility] Name Value Range Interpretation Code Description Data Rosa rce(s) Supporting Document(s) VANCOMYCIN TROU 19.1 ug/mL 5-10 H [facility] FOR SKIN AND SKIN STRUCTURE INFECTIONS, GUIDELINES RECOMMENDA TROUGH OF 10. FOR SEVERE INFECTIONS, (PNEUMONIA, OSTEOMYELITIS, MENINGITISAND BACTEREMIA) A TARGET TROUGH OF 15 TO 20 IS RECOMMENDED. ID Date Data Source [id number] 05/20/2020 11:56:00 AM EDT [place] [address] [id number] NOTEPATIENT NAME: ELA PONCE PHYSICIAN: MICHAEL WANG MDAUTHOR: Breezy [place], Zhang. DATE: 05/18/20 MR#: [id number] NOTE DATE: 05/20/20 RM#: [id number] TIME: 1210 : 45SubjectiveCC/Hx Present IllnessBack painEvents Since Last EntryCurrently alert oriented x1. Very poor historian. On chronic oxygen. Furtherhistory limited. Reported thirst, would like to drink some water. Toleratingapplesauce . Seems more responsive today.ObjectiveVital SignsVital Signs-24 HRS04/09 04 04 [id number] 0908 2145 0209Temp 99.0 98.7 97.6Pulse 99 83 95Resp 18 18 20B/P 132/78 154/72 158/73B/P MeanPulse Ox 96 94 96O2 Delivery Nasal cannula Nasal cannula Nasal cannulaO2 Flow Rate 3 3L 0WWyI597/10 0405/20 04/760606 0812 0902 0922Temp 97.8Pulse 107Resp 24B/P 188/103 161/78 161/78B/P MeanPulse Ox 96O2 Delivery MD AT BEDSIDE Nasal cannula Nasal cannulaO2 Flow Rate 3LNC 3L 2DjT3Crpajy/OutputIntake/Output Summary 24 hours/09 1900 04/10 0700Intake Total 2520 1420Output Total 1600 1000Balance 920 420Intake, IV 2400 1300Intake, Oral 120 120Number 3 3BowelMovementsOutput, Urine 1600 1000Current MedicationsHydralazine HCl (Apresoline) 50 MG TID POInsulin Detemir (Levemir) 6 UNIT DAILY SUBCUTLevothyroxine Sodium (Synthroid) 75 MCG DAILY POMethylprednisolone (Solumedrol) 40 MG Q12H IVNicotine (Nicoderm) 21 MG DAILY TOPInsulin Aspart (Humalog Insulin) Low dose sliding scaleAC MEAL SUBCUTAtorvastatin Calcium (Lipitor) 40 MG QHS POBuspirone HCl (Buspar) 5 MG BID POChlorhexidine Gluconate (Chlorhexidine Gluconate) 0 BID MMInsulin Aspart (Humalog Insulin) 0 QHS SUBCUTMiscellaneous (Patch off) 1 PAT QHS NADextrose/Water (Dextrose) 1 GM IV (CAN)Lorazepam (Ativan) 1 MG Q2HPRN PRN POAlbuterol/Ipratropium (Duoneb) 3 ML Q6HWA PRN INHClopidogrel Bisulfate (Plavix) 75 MG DAILY PODuloxetine HCl (Cymbalta) 60 MG DAILY POFolic Acid (Folvite) 1 MG DAILY POLisinopril (Prinivil,Zestril) 40 MG DAILY POMultivitamins (Multivitamin) 1 TAB DAILY POSodium Chloride (Saline Flush Syr(10ML)) 10 ML Q12H IVThiamine HCl (VITAMIN B1) 100 MG DAILY POVancomycin HCl (Vancocyin) 750 MG Q12H@0400,1600 IVPiperacillin Sod/Tazobactam Sod (Zosyn) 3.375 GM Q6H IVHeparin Sodium (Porcine) (Heparin Sodium) 5,000 UNIT Q8H SUBCUTHeparin Sodium (Porcine) (Heparin syringe) 100 UNIT Q12H IVAcetaminophen (Tylenol) 650 MG Q6HPRN PRN POAcetaminophen (Tylenol) 650 MG Q6HPRN PRN POGlucose (Insta-Glucose) 15 GM DAILY NEEDED PRN POSodium Chloride (Saline Flush Syr(10ML)) 10 ML QIDPRN PRN IVExamGeneral Appearance Response to verbal and tactile stimuli, Intermittentagitation, alert oriented x1Head normocephalicENT dry mucosal membranesEye AssessementR,L,Bilateral bilateralNeck no JVDCardiovascular regular rate, no gallop, no rub, normal heart soundsRespiratory clear to auscultation (anteriorly), no distress, aerating well, onoxygenAbdomen soft, no distention, normal bowel sounds, no guardingUrinary no flank pain, Garcia catheterExtremities no cyanosis, no edema, normal pulsesMuscoskeletal normal inspectionNeurological Moves all 4 extremity, alert oriented x1, arousable to stimuli,intermittent agitationSkin AssessmentSkin Diffuse ecchymosis bilateral upper extremityPsych/Mental Status Unable to assess.ResultsLaboratory DataRecent Labs- 24 hours05/19 1707 0415 0415ChemistrySodium (136 - 147 mmol/L) 150 HPotassium (3.5 - 5.1 mmol/L) 3.5Chloride (99 - 110 mmol/L) 115 HSerum Bicarbonate (20 - 33 mmol/L) 26Anion Gap (10.0 - 20.0) 12.5BUN (7 - 23 mg/dL) 20Creatinine (0.500 - 1.300 mg/dL) 0.747Estimated GFR/1.73 m2 (mL/min) > 60Glucose (70 - 110 mg/dL) 253 HPOC Glucose (70 - 110 mg/dL) 53 LCalcium (8.3 - 10.7 mg/dL) 8.4Magnesium (1.6 - 2.6 mg/dL) 2.1Total Bilirubin (0.1 - 1.1 mg/dL) 0.7AST (6 - 38 U/L) 59 HALT (6 - 54 U/L) 53Alkaline Phosphatase (45 - 117 U/L) 151 HC-Reactive Protein (0.00 - 0.49 mg/dL) 4.82 HTotal Protein (6.0 - 7.8 g/dL) 4.9 LAlbumin (3.5 - 5.0 g/dL) 2.6 LGlobulin (2.3 - 3.5 g/dL) 2.3Albumin/Globulin Ratio (1.0 - 2.5) 1.1TSH (0.270 - 4.200 uIU/mL) 0.82CoagulationINR (0.91 - 1.09) 0.92HematologyWBC (4.0 - 10.5 x10E3/uL) 13.75 HRBC (4.20 - 5.40 x10E6/uL) 2.80 LHgb (12.0 - 16.0 g/dL) 8.3 LHct (37.0 - 47.0 %) 26.2 LMCV (81.0 - 99.0 fL) 93.6MCH (27.0 - 31.0 pg) 29.6MCHC (32.7 - 35.6 g/dL) 31.7 LRDW (11.5 - 14.0 %) 14.9 HPlt Count (150 - 450 x10E3/uL) 137 LMPV (6.9 - 9.5 fl) 10.0 HImmature Gran % (Auto) (0.1 - 2.0 %) 1.8Neut % (Auto) (34 - 64 %) 93.6 HLymph % (Auto) (25 - 45 %) 2.6 LMono % (Auto) (1.7 - 10.6 %) 1.9Eos % (Auto) (0.4 - 7.0 %) 0 LBaso % (Auto) (0.1 - 2.0 %) 0.1Abs Immat Gran (auto) (0.0 - 0.1 x10E3/uL) 0.25 HAbsolute Neuts (auto) (1.2 - 7.6 x10E3/uL) 12.87 HAbsolute Lymphs (auto) (1.0 - 3.5 x10E3/uL) 0.36 LAbsolute Monos (auto) (0.1 - 1.0 x10E3/uL) 0.26Absolute Eos (auto) (0.1 - 0.7 x10E3/uL) 0.00 LAbsolute Basos (auto) (0.0 - 0.1 x10E3/uL) 0.01Nucleated RBC % (auto) (0 %) 0ToxicologyVancomycin Trough (5 - 10 ug/mL) 14.4 HMicrobiologyMicrobiology Last 24 hours05/19 1900 NARES: MRSA Screen - COMPResults Reviewed labs reviewedAssessment/PlanProblem List1. Back painStatus AcuteA&PPatient complained of back pain. On examination had lumbar and thoracictenderness in the setting of increasing CRP and increasing leukocytosis.Chronic spinal stenosis, possible concern for discitis. Patient transferred [facility] for MRI thoracic and lumbar spine.-We will obtain MRI of the thoracic and lumbar spine.-Patient started on vancomycin IV and Zosyn IV-Le ukocytosis trending down.-Follow-up blood cultures-Pain management.Currently unable to obtain MRI due to agitation, will reattempt on Friday2. PneumoniaStatus AcuteA&PContinue vancomycin and Zosyn.-Follow blood cultures.Pneumonia type: due to methicillin-resistant Staphylococcus aureus (MRSA)Laterality: unspecified laterality Lung location: unspecified part of lungQualified Code: J15.212 - Pneumonia due to Methicillin resistant Staphylococcusaureus3. COPD (chronic obstructive pulmonary disease)Status AcuteA&Mendoza 2.5 L oxygen at baseline, DuoNeb as needed, Solu-Medrol IV taper, continueantibiotics as above4. UTI (urinary tract infection)Status AcuteA&PUTI questionable pyelonephritis on CT abdomen pelvis-Continue with Zosyn zc-[id number]-[id number] urine culture.5. HLD (hyperlipidemia)Status ChronicA&PContinue statin6. Spinal stenosisStatus ChronicA&PChronic history of spinal stenosis continue with pain management.7. DepressionStatus ChronicA&PContinue with duloxetine., BuSpar8. HypothyroidismStatus ChronicA&PCheck TSH.-Continue with levothyroxine.9. HTN (hypertension)Status ChronicA&P-Continue with lisinopril and increase hydralazine 50 mg p.o. twice daily.-Monitor blood pressure.10. CKD (chronic kidney disease)Status ChronicA&PHistory of CKD. SU at [facility].-Monitor renal function.11. DiabetesStatus ChronicA&PHypoglycemia, Levemir dose reduced, continue NovoLog via protocol, closemonitoring,12. AnxietyStatus AcuteA&Mendoza chronic benzodiazepines. Will continue.13. PVD (peripheral vascular disease)Status ChronicA&PHistory of stent placement.Continue with Plavix, statin-Continue to monitor.14. DebilityStatus ChronicA&P-Supportive care-Consider PT/OT when patient is more alert.15. HypoalbuminemiaStatus ChronicA&PEncourage p.o. intake. Nutrition supplementation.Ensure p.o. 3 times daily.16. Polysubstance abuseStatus ChronicA&PThiamine, folic acid, multivitamin, Ativan as needed for toqdjalpcf53. HypernatremiaStatus AcuteA&PLikely secondary to IV fluids, encourage oral hydration. Patient currentlydrinking lots of water.Additional [id number] female patient underlying medical history of COPD O2 dependent,spinal stenosis, depression, dyslipidemia, type 2 diabetes, nicotine addiction,anxiety, hypothyroidism, debility, CKD, peripheral vascular disease,hypoalbuminemia, polysubstance abuse, initially admitted to [facility] for right upper lobe pneumonia, sepsis, deconditioning with frequentfall, transferred given complains of back pain and worsening leukocytosisDVT prophylaxis Heparin subcuDisposition pending clinical improvement we will reattempt to get MRIResuscitation status Full codeCase discussed with case management specialist, nursing staffVTE ProphylaxisVTE Prophylaxis: Heparin subcu.DATE SIGNED: 05/20/20 Electronically SignedTIME SIGNED: 1210 SAAD FRIED MD Name Value Range Interpretation Code Description Data Rosa rce(s) Supporting Document(s) ID Date Data Source [id number] 05/20/2020 09:32:00 PM EDT [facility] Name Value Range Interpretation Code Description Data Rosa rce(s) Supporting Document(s) FGLU 341 mg/dL 70-110 [facility] ID Date Data Source [id number] 05/21/2020 02:05:00 AM EDT [facility] Name Value Range Interpretation Code Description Data Rosa rce(s) Supporting Document(s) FGLU 316 mg/dL 70-110 [facility] ID Date Data Source [id number] 05/20/2020 06:21:00 AM EDT [facility] Name Value Range Interpretation Code Description Data Rosa rce(s) Supporting Document(s) USTSH 0.82 uIU/mL 0.270-4.200 [facility] ID Date Data Source [id number] 05/20/2020 05:41:[facility] Name Value Range Interpretation Code Description Data Rosa rce(s) Supporting Document(s) C-REACTIVE PROT 4.82 mg/dL 0.00-0.49 [facility] ID Date Data Source [id number] 05/20/2020 05:41:00 AM EDT [facility] Name Value Range Interpretation Code Description Data Rosa rce(s) Supporting Document(s) MAGNESIUM 2.1 mg/dL 1.6-2.6 [facility] ID Date Data Source [id number] 05/20/2020 05:41:00 AM EDT [facility] Name Value Range Interpretation Code Description Data Rosa rce(s) Supporting Document(s) GLU 253 mg/dL 70-110 [facility] Patients taking Sulfasalazine may have f alsely depressedGlucose levels. Patients taking Sulfapyridine may havefalsely elevated Glucose levels. Patients should be drawnfor Glucose before the initial administration of eitherdrug. BUN 20 mg/dL 7-23 [facility] CRE 0.747 mg/dL 0.500-1.300 [facility] GFR > 60 mL/min [facility] CHLORIDE 115 mmol/L 99-110 [facility] NA 150 mmol/L 136-147 [facility] POTASSIUM 3.5 mmol/L 3.5-5.1 [facility] TCO2 26 mmol/L 20-33 [facility] ANION GAP 12.5 10.0-20.0 [facility] CA 8.4 mg/dL 8.3-10.7 [facility] ALKALINE PHOS 151 U/L 45-117 [facility] TP 4.9 g/dL 6.0-7.8 L [facility] ALB 2.6 g/dL 3.5-5.0 [facility] ESRD Dialysis patient Albumin reference range: 2.9-4.4 g/dL GL 2.3 g/dL 2.3-3.5 [facility] A/G 1.1 1.0-2.5 [facility] T. BILIRUBIN 0.7 mg/dL 0.1-1.1 [facility] The [employer] [place] Total Bilirubin is n ot recommended forpatients undergoing treatment with eltrombopag (Promacta)due to the potential for falsely elevated results. ALTI 53 U/L 6-54 [facility] Patients taking Sulfasalazine and/or Sul fapyridine may havefalsely depressed ALT levels. Patients should be drawn forALT before the initial administration of either drug. AST 59 U/L 6-38 [facility] Patients taking Sulfasalazine and/or Sul fapyridine may havefalsely depressed AST levels. Patients should be drawn forAST before the initial administration of either drug. ID Date Data Source [id number] 05/20/2020 05:30:00 AM EDT [facility] Name Value Range Interpretation Code Description Data Rosa rce(s) Supporting Document(s) WBC 13.75 x10E3/uL 4.0-10.5 [facility] RBC 2.80 x10E6/uL 4.20-5.40 [facility] Hemoglobin 8.3 g/dL 12.0-16.0 [facility] Hematocrit 26.2 % 37.0-47.0 [facility] MCV 93.6 fL 81.0-99.0 [facility] MCH 29.6 pg 27.0-31.0 [facility] MCHC 31.7 g/dL 32.7-35.6 [facility] RDW 14.9 % 11.5-14.0 [facility] Platelet count 137 x10E3/uL 150-450 L [facility] ital MPV 10.0 fl 6.9-9.5 [facility] Neutrophils 93.6 % 34-64 [facility] Lymphocytes 2.6 % 25-45 [facility] Monocytes 1.9 % 1.7-10.6 [facility] Eosinophils 0 % 0.4-7.0 [facility] Basophils 0.1 % 0.1-2.0 [facility] Imm. Gran. 1.8 % 0.1-2.0 [facility] Abs. Neutro. 12.87 x10E3/uL 1.2-7.6 [facility] Abs. Lymph. 0.36 x10E3/uL 1.0-3.5 L [facility] Abs. Curry. 0.26 x10E3/uL 0.1-1.0 [facility] Abs. Eosin. 0.00 x10E3/uL 0.1-0.7 [facility] Abs. Baso. 0.01 x10E3/uL 0.0-0.1 [facility] Abs. Imm. Gran. 0.25 x10E3/uL 0.0-0.1 [facility] ANRBC% 0 % 0 [facility] DIFFERENTIAL CONFIRMED BY SLIDE REVIEW. ID Date Data Source [id number] 05/20/2020 05:14:00 AM EDT [facility] ANTI-COAGULANTS PT.IS TAKING: None Name Value Range Interpretation Code Description Data Rosa rce(s) Supporting Document(s) INR 0.92 0.91-1.09 [facility] INR THERAPEUTIC RANGES Prophylaxis of ve nous thrombosis ] (high risk surgery) ]Treatment of venous thrombosis ]Treatment of pulmonary embolism ]Prevention of systemic embolism ] 2.0-3.0Tissue heart valves ]Acute myocardial infarction ]Valvular disease ]Atrial fibrillation ]Recurrent systemic embolism ] Mechanical prosthetic heart valves -------- 2.5-3.5 ID Date Data Source [id number] 05/21/2020 02:12:00 PM EDT [facility] Name Value Range Interpretation Code Description Data Rosa rce(s) Supporting Document(s) FGLU 170 mg/dL 70-110 [facility] ID Date Data Source [id number] 05/20/2020 09:34:00 AM EDT [facility] Name Value Range Interpretation Code Description Data Rosa rce(s) Supporting Document(s) MRSA/SAUR SCRN [facility] S.AUREUS SCREEN [facility] MRSA SCREEN [facility] ID Date Data Source [id number] 05/19/2020 06:44:00 PM EDT [facility] Name Value Range Interpretation Code Description Data Rosa rce(s) Supporting Document(s) FGLU 53 mg/dL 70-110 L [facility] ID Date Data Source [id number] 05/19/2020 04:55:00 PM EDT [facility] [address] [id number] NOTEPATIENT NAME: ELA PONCE BATTENKEIKO PHYSICIAN: MICHAEL WANG, MDAUTHOR: Breezy GA, Zhang. DATE: 05/18/20 MR#: [id number] NOTE DATE: 05/19/20 RM#: [id number] TIME: 1715 : 45SubjectiveCC/Hx Present IllnessBack painEvents Since Last EntryPatient admitted overnight. Currently alert oriented x1. Very poor historian.On chronic oxygen. Further history limitedObjectiveVital SignsVital Signs-24 HRS05/18 2246 0132 0543Temp 97.9 97.4 97.8Pulse 110 99 100Resp 17 17 17B/P 160/91 159/63 160/67B/P MeanPulse Ox 92 98 93O2 Delivery Nasal cannula Nasal cannula Nasal cannula Nasal cannulaO2 Flow Rate 2LPM 3LPM 2 9HfH92005/19 0856TempPulseRespB/P 162/82B/P MeanPulse OxO2 Delivery Nasal cannulaO2 Flow Rate 7NoU2Pjzmdm/OutputIntake/Output Summary 24 hours05/18 1900 05/19 0700Intake Total 1305Output Total 400Balance 905Intake, IV 1275Intake, Oral 30Output, Urine 400Patient 54.09 kgWeightCurrent MedicationsLevothyroxine Sodium (Synthroid) 75 MCG DAILY PONicotine (Nicoderm) 21 MG DAILY TOPBuspirone HCl (Buspar) 5 MG BID POChlorhexidine Gluconate (Chlorhexidine Gluconate) 0 BID MMInsulin Aspart (Humalog Insulin) 0 QHS SUBCUTMiscellaneous (Patch off) 1 PAT QHS NALorazepam (Ativan) 1 MG Q2HPRN PRN POAlbuterol/Ipratropium (Duoneb) 3 ML Q6HWA PRN INHInsulin Aspart (Humalog Insulin) 0 AC MEAL SUBCUTClopidogrel Bisulfate (Plavix) 75 MG DAILY PODuloxetine HCl ( Cymbalta) 60 MG DAILY POFolic Acid (Folvite) 1 MG DAILY POHydralazine HCl (Apresoline) 50 MG BID POInsulin Detemir (Levemir) 10 UNIT DAILY SUBCUTLisinopril (Prinivil,Zestril) 40 MG DAILY POMultivitamins (Multivitamin) 1 TAB DAILY POSodium Chloride (Saline Flush Syr(10ML)) 10 ML Q12H IVThiamine HCl (VITAMIN B1) 100 MG DAILY POVancomycin HCl (Vancocin) 1,000 MG Q12H IV (CAN)Methylprednisolone (Solumedrol) 40 MG Q8H IVVancomycin HCl (Vancocyin) 750 MG Q12H@0400,1600 IVPiperacillin Sod/Tazobactam Sod (Zosyn) 3.375 GM Q6H IVHeparin Sodium (Porcine) (Heparin Sodium) 5,000 UNIT Q8H SUBCUTHeparin Sodium (Porcine) (Heparin syringe) 100 UNIT Q12H IVAcetaminophen (Tylenol) 650 MG Q6HPRN PRN POAcetaminophen (Tylenol) 650 MG Q6HPRN PRN POGlucose (Insta-Glucose) 15 GM DAILY NEEDED PRN POSodium Chloride (SODIUM CHLORIDE 0.9%) 1,000 ML .[id number] IVSodium Chloride (Saline Flush Syr(10ML)) 10 ML QIDPRN PRN IVExamGeneral Appearance Response to verbal and tactile stimuli, Intermittentagitation, alert oriented x1Head normocephalicENT dry mucosal membranesEye AssessementR,L,Bilateral bilateral (Pa tient combative)Neck no JVDCardiovascular regular rate, no gallop, no rub, normal heart soundsRespiratory clear to auscultation (anteriorly), no distress, aerating well, onoxygenAbdomen soft, no distention, normal bowel sounds, no guardingUrinary no flank pain, Garcia catheterExtremities no cyanosis, no edema, normal pulsesMuscoskeletal normal inspectionNeurological Moves all 4 extremity, alert oriented x1, arousable to stimuli,intermittent agitationSkin AssessmentSkin dry, intact, Diffuse upper extremity ecchymosisPsych/Mental Status Unable to assess.ResultsLaboratory DataRecent Labs-24 hours05/18 2200 2200 0130ChemistrySodium (136 - 147 mmol/L) 146Potassium (3.5 - 5.1 mmol/L) 4.3Chloride (99 - 110 mmol/L) 111 HSerum Bicarbonate (20 - 33 mmol/L) 27Anion Gap (10.0 - 20.0) 12.3BUN (7 - 23 mg/dL) 27 HCreatinine (0.500 - 1.300 mg/dL) 0.991Estimated GFR/1.73 m2 (mL/min) 58Glucose (70 - 110 mg/dL) 348 HPlasma Lactic Acid Sedrick (0.4 - 2.0 mmol/L) 0.4Calcium (8.3 - 10.7 mg/dL) 8.9Total Bilirubin (0.1 - 1.1 mg/dL) 0.6AST (6 - 38 U/L) 30ALT (6 - 54 U/L) 41Alkaline Phosphatase (45 - 117 U/L) 112Troponin I High Sens (3.0 - 82.3 ng/L) 67.8C-Reactive Protein (0.00 - 0.49 mg/dL) 3.66 HTotal Protein (6.0 - 7.8 g/dL) 5.3 LAlbumin (3.5 - 5.0 g/dL) 2.6 LGlobulin (2.3 - 3.5 g/dL) 2.7Albumin/Globulin Ratio (1.0 - 2.5) 1.0CoagulationINR (0.91 - 1.09) 0.91APTT (21.2 - 31.2 SECONDS) 22.2HematologyWBC (4.0 - 10.5 x10E3/uL) 14.51 HRBC (4.20 - 5.40 x10E6/uL) 3.16 LHgb (12.0 - 16.0 g/dL) 9.5 LHct (37.0 - 47.0 %) 29.7 LMCV (81.0 - 99.0 fL) 94.0MCH (27.0 - 31.0 pg) 30.1MCHC (32.7 - 35.6 g/dL) 32.0 LRDW (11.5 - 14.0 %) 15.0 HPlt Count (150 - 450 x10E3/uL) 158MPV (6.9 - 9.5 fl) 9.9 HImmature Gran % (Auto) (0.1 - 2.0 %) 1.2Neut % (Auto) (34 - 64 %) 88.5 HLymph % (Auto) (25 - 45 %) 3.6 LMono % (Auto) (1.7 - 10.6 %) 5.7Eos % (Auto) (0.4 - 7.0 %) 0.8Baso % (Auto) (0.1 - 2.0 %) 0.2Abs Immat Gran (auto) (0.0 - 0.1 x10E3/uL) 0.18 HAbsolute Neuts (auto) (1.2 - 7.6 x10E3/uL) 12.84 HAbsolute Lymphs (auto) (1.0 - 3.5 x10E3/uL) 0.52 LAbsolute Monos (auto) (0.1 - 1.0 x10E3/uL) 0.83Absolute Eos (auto) (0.1 - 0.7 x10E3/uL) 0.11Absolute Basos (auto) (0.0 - 0.1 x10E3/uL) 0.03Nucleated RBC % (auto) (0 %) 0ESR (0 - 20 MM/HR) 36 H005/1920 0805 1145 1605ChemistrySodium (136 - 147 mmol/L) 146Potassium (3.5 - 5.1 mmol/L) 3.9Chloride (99 - 110 mmol/L) 111 HSerum Bicarbonate (20 - 33 mmol/L) 27Anion Gap (10.0 - 20.0) 11.9BUN (7 - 23 mg/dL) 27 HCreatinine (0.500 - 1.300 mg/dL) 0.993Estimated GFR/1.73 m2 (mL/min) 58Glucose (70 - 110 mg/dL) 319 HPOC Glucose (70 - 110 mg/dL) 174 HCalcium (8.3 - 10.7 mg/dL) 8.7Total Bilirubin (0.1 - 1.1 mg/dL) 0.5AST (6 - 38 U/L) 32ALT (6 - 54 U/L) 40Alkaline Phosphatase (45 - 117 U/L) 110Creatine Kinase (17 - 150 U/L) 200 HTotal Protein (6.0 - 7.8 g/dL) 5.4 LAlbumin (3.5 - 5.0 g/dL) 2.6 LGlobulin (2.3 - 3.5 g/dL) 2.8Albumin/Globulin Ratio (1.0 - 2.5) 0.9 LHematologyWBC (4.0 - 10.5 x10E3/uL) 13.42 HRBC (4.20 - 5.40 x10E6/uL) 2.98 LHgb (12.0 - 16.0 g/dL) 9.0 LHct (37.0 - 47.0 %) 28.1 LMCV (81.0 - 99.0 fL) 94.3MCH (27.0 - 31.0 pg) 30.2MCHC (32.7 - 35.6 g/dL) 32.0 LRDW (11.5 - 14.0 %) 15.0 HPlt Count (150 - 450 x10E3/uL) 144 LMPV (6.9 - 9.5 fl) 10.0 HImmature Gran % (Auto) (0.1 - 2.0 %) 1.4Neut % (Auto) (34 - 64 %) 88.7 HLymph % (Auto) (25 - 45 %) 3.6 LMono % (Auto) (1.7 - 10.6 %) 5.4Eos % (Auto) (0.4 - 7.0 %) 0.8Baso % (Auto) (0.1 - 2.0 %) 0.1Abs Immat Gran (auto) (0.0 - 0.1 x10E3/uL) 0.19 HAbsolute Neuts (auto) (1.2 - 7.6 x10E3/uL) 11.89 HAbsolute Lymphs (auto) (1.0 - 3.5 0.48 Lx10E3/uL)Absolute Monos (auto) (0.1 - 1.0 x10E3/uL) 0.73Absolute Eos (auto) (0.1 - 0.7 x10E3/uL) 0.11Absolute Basos (auto) (0.0 - 0.1 x10E3/uL) 0.02Nucleated RBC % (auto) (0 %) 0ToxicologyVancomycin Trough PendingMicrobiologyMicrobiology Last 24 hours05/18 2199 BLOOD: Blood Culture - RECD05/18 2199 BLOOD: Blood Culture - RECDResults Reviewed labs reviewedAssessment/PlanProblem List1. Back painStatus AcuteA&PPatient complained of back pain. On examination had lumbar and thoracictenderness in the setting of increasing CRP and increasing leukocytosis.Chronic spinal stenosis, possible concern for discitis. Patient transferred [facility] for MRI thoracic and lumbar spine.-We will obtain MRI of the thoracic and lumbar spine. Spoke with patient's sonpatient does not have any metal/ implants in the body that will prevent MRI beobtained.-Patient started on vancomycin IV and Zosyn IV- Leukocytosis trending down.-Follow-up blood cultures-Pain management.Currently unable to obtain MRI due to agitation, will reattempt on Friday2. PneumoniaStatus AcuteA&PContinue vancomycin and Zosyn.-Follow blood cultures.Pn eumonia type: due to methicillin-resistant Staphylococcus aureus (MRSA)Laterality: unspecified laterality Lung location: unspecified part of lungQualified Code: J15.212 - Pneumonia due to Methicillin resistant Staphylococcusaureus3. COPD (chronic obstructive pulmonary disease)Status AcuteA&Mendoza 2.5 L oxygen at baseline, DuoNeb as needed, Solu-Medrol IV, continueantibiotics as above4. UTI (urinary tract infection)Status AcuteA&PUTI questionable pyelonephritis on CT abdomen pelvis-Continue with Zosyn rq-Sswkgn-zl urine culture.5. HLD (hyperlipidemia)Status ChronicA&PContinue statin6. Spinal stenosisStatus ChronicA&PChronic history of spinal stenosis continue with pain management.7. DepressionStatus ChronicA&PContinue with duloxetine., BuSpar8. HypothyroidismStatus ChronicA&PCheck TSH.-Continue with levothyroxine.9. HTN (hypertension)Status ChronicA&P-Continue with lisinopril and hydralazine.-Monitor blood pressure.10. CKD (chronic kidney disease)Status ChronicA&PHistory of CKD. SU at [facility]. Creatinine today 0.9.-Monitor renal function.11. DiabetesStatus ChronicA&PHyperglycemia, Levemir dose reduced, continue NovoLog via protocol, closemonitoring, given half of amp of D50, started on D5 half-normal with 20 of KClfor the next 5 hours12. AnxietyStatus AcuteA&Mendoza chronic benzodiazepines. Will continue.13. PVD (peripheral vascular disease)Status ChronicA&PHistory of stent placement.Continue with Plavix, statin-Continue to monitor.14. DebilityStatus ChronicA&P-Supportive care- Consider PT/OT when patient is more alert.15. HypoalbuminemiaStatus ChronicA&PEncourage p.o. intake. Nutrition supplementation.Ensure p.o. 3 times daily.16. Polysubstance abuseStatus ChronicA&PThiamine, folic acid, multivitamin, Ativan as needed for withdrawalAdditional [id number] female patient underlying medical history of COPD O2 dependent,spinal stenosis, depression, dyslipidemia, type 2 diabetes, nicotine addiction,anxiety, hypothyroidism, debility, CKD, peripheral vascular disease,hypoalbuminemia, polysubstance abuse, [facility], [facility], deconditioning with frequentfall, transferred given complains of back pain and worsening leukocytosisDVT prophylaxis Heparin subcuDisposition pending clinical improvement we will reattempt to get MRIResuscitation status Full codeCase discussed with case management specialist, nursing staffVTE ProphylaxisVTE Prophylaxis: Heparin subcu.DATE SIGNED: 05/19/20 Electronically SignedTIME SIGNED: [id number] SAAD FRIED MD Name Value Range Interpretation Code Description Data Rosa rce(s) Supporting Document(s) ID Date Data Source [id number] 05/19/2020 05:09:00 PM EDT [facility] Name Value Range Interpretation Code Description Data Rosa rce(s) Supporting Document(s) VANCOMYCIN TROU 14.4 ug/mL 5-10 [facility] FOR SKIN AND SKIN STRUCTURE INFECTIONS, GUIDELINES RECOMMENDA TROUGH OF 10. FOR SEVERE INFECTIONS, (PNEUMONIA, OSTEOMYELITIS, MENINGITISAND BACTEREMIA) A TARGET TROUGH OF 15 TO 20 IS RECOMMENDED. ID Date Data Source [id number] 05/19/2020 04:37:00 PM EDT [facility] Name Value Range Interpretation Code Description Data Rosa rce(s) Supporting Document(s) FGLU 174 mg/dL 70-110 H [facility] ID Date Data Source [id number] 05/19/2020 08:46:00 AM EDT [facility] Name Value Range Interpretation Code Description Data Rosa rce(s) Supporting Document(s) CKI 200 U/L 17-150 [facility] ID Date Data Source [id number] 05/19/2020 07:39:00 PM EDT [facility] Name Value Range Interpretation Code Description Data Rosa rce(s) Supporting Document(s) FGLU 337 mg/dL 70-110 [facility] ID Date Data Source [id number] 05/19/2020 07:11:00 AM EDT [facility] Name Value Range Interpretation Code Description Data Rosa rce(s) Supporting Document(s) GLU 319 mg/dL 70-110 [facility] Patients taking Sulfasalazine may have f alsely depressedGlucose levels. Patients taking Sulfapyridine may havefalsely elevated Glucose levels. Patients should be drawnfor Glucose before the initial administration of eitherdrug. BUN 27 mg/dL 7-23 [facility] CRE 0.993 mg/dL 0.500-1.300 [facility] GFR 58 mL/min [facility] CHLORIDE 111 mmol/L 99-110 [facility] NA 146 mmol/L 136-147 [facility] POTASSIUM 3.9 mmol/L 3.5-5.1 [facility] TCO2 27 mmol/L 20-33 [facility] ANION GAP 11.9 10.0-20.0 [facility] CA 8.7 mg/dL 8.3-10.7 [facility] ALKALINE PHOS 110 U/L 45-117 [facility] TP 5.4 g/dL 6.0-7.8 [facility] ALB 2.6 g/dL 3.5-5.0 [facility] ESRD Dialysis patient Albumin reference range: 2.9-4.4 g/dL GL 2.8 g/dL 2.3-3.5 [facility] A/G 0.9 1.0-2.5 [facility] T. BILIRUBIN 0.5 mg/dL 0.1-1.1 [facility] [employer] [place] Total Bilirubin is n ot recommended forpatients undergoing treatment with eltrombopag (Promacta)due to the potential for falsely elevated results. ALTI 40 U/L 6-54 [facility] Patients taking Sulfasalazine and/or Sul fapyridine may havefalsely depressed ALT levels. Patients should be drawn forALT before the initial administration of either drug. AST 32 U/L 6-38 [facility] Patients taking Sulfasalazine and/or Sul fapyridine may havefalsely depressed AST levels. Patients should be drawn forAST before the initial administration of either drug. ID Date Data Source [id number] 05/19/2020 06:45:00 AM EDT [facility] Name Value Range Interpretation Code Description Data Rosa rce(s) Supporting Document(s) WBC 13.42 x10E3/uL 4.0-10.5 [facility] RBC 2.98 x10E6/uL 4.20-5.40 [facility] Hemoglobin 9.0 g/dL 12.0-16.0 [facility] Hematocrit 28.1 % 37.0-47.0 [facility] MCV 94.3 fL 81.0-99.0 [facility] MCH 30.2 pg 27.0-31.0 [facility] MCHC 32.0 g/dL 32.7-35.6 [facility] RDW 15.0 % 11.5-14.0 H [facility] Platelet count 144 x10E3/uL 150-450 [facility] ital MPV 10.0 fl 6.9-9.5 H [facility] Neutrophils 88.7 % 34-64 [facility] Lymphocytes 3.6 % 25-45 L [facility] Monocytes 5.4 % 1.7-10.6 N [facility] Eosinophils 0.8 % 0.4-7.0 N [facility] Basophils 0.1 % 0.1-2.0 [facility] Imm. Gran. 1.4 % 0.1-2.0 N [facility] Abs. Neutro. 11.89 x10E3/uL 1.2-7.6 [facility] Abs. Lymph. 0.48 x10E3/uL 1.0-3.5 [facility] Abs. Curry. 0.73 x10E3/uL 0.1-1.0 [facility] Abs. Eosin. 0.11 x10E3/uL 0.1-0.7 [facility] Abs. Baso. 0.02 x10E3/uL 0.0-0.1 [facility] Abs. Imm. Gran. 0.19 x10E3/uL 0.0-0.1 [facility]ital ANRBC% 0 % 0 [facility] DIFFERENTIAL CONFIRMED BY SLIDE REVIEW. ID Date Data Source [id number] 05/19/2020 02:06:00 AM EDT [facility] Name Value Range Interpretation Code Description Data Rosa rce(s) Supporting Document(s) GLU 348 mg/dL 70-110 [facility] Patients taking Sulfasalazine may have f alsely depressedGlucose levels. Patients taking Sulfapyridine may havefalsely elevated Glucose levels. Patients should be drawnfor Glucose before the initial administration of eitherdrug. BUN 27 mg/dL 7-23 [facility] CRE 0.991 mg/dL 0.500-1.300 [facility] GFR 58 mL/min [facility] CHLORIDE 111 mmol/L 99-110 [facility] NA 146 mmol/L 136-147 [facility] POTASSIUM 4.3 mmol/L 3.5-5.1 [facility] TCO2 27 mmol/L 20-33 [facility] ANION GAP 12.3 10.0-20.0 [facility] CA 8.9 mg/dL 8.3-10.7 [facility] ALKALINE PHOS 112 U/L 45-117 [facility] TP 5.3 g/dL 6.0-7.8 [facility] ALB 2.6 g/dL 3.5-5.0 [facility] ESRD Dialysis patient Albumin reference range: 2.9-4.4 g/dL GL 2.7 g/dL 2.3-3.5 [facility] A/G 1.0 1.0-2.5 [facility] T. BILIRUBIN 0.6 mg/dL 0.1-1.1 [facility] The [employer] [place] Total Bilirubin is n ot recommended forpatients undergoing treatment with eltrombopag (Promacta)due to the potential for falsely elevated results. ALTI 41 U/L 6-54 [facility] Patients taking Sulfasalazine and/or Sul fapyridine may havefalsely depressed ALT levels. Patients should be drawn forALT before the initial administration of either drug. AST 30 U/L 6-38 [facility] Patients taking Sulfasalazine and/or Sul fapyridine may havefalsely depressed AST levels. Patients should be drawn forAST before the initial administration of either drug. ID Date Data Source [id number] 05/19/2020 01:55:00 AM EDT [facility] Name Value Range Interpretation Code Description Data Rosa rce(s) Supporting Document(s) WBC 14.51 x10E3/uL 4.0-10.5 [facility] RBC 3.16 x10E6/uL 4.20-5.40 [facility] Hemoglobin 9.5 g/dL 12.0-16.0 [facility] Hematocrit 29.7 % 37.0-47.0 [facility] MCV 94.0 fL 81.0-99.0 [facility] MCH 30.1 pg 27.0-31.0 [facility] MCHC 32.0 g/dL 32.7-35.6 [facility] RDW 15.0 % 11.5-14.0 [facility] Platelet count 158 x10E3/uL 150-450 [facility] ital MPV 9.9 fl 6.9-9.5 H [facility] Neutrophils 88.5 % 34-64 H [facility] Lymphocytes 3.6 % 25-45 L [facility] Monocytes 5.7 % 1.7-10.6 N [facility] Eosinophils 0.8 % 0.4-7.0 [facility] Basophils 0.2 % 0.1-2.0 [facility] Imm. Gran. 1.2 % 0.1-2.0 [facility] Abs. Neutro. 12.84 x10E3/uL 1.2-7.6 [facility] Abs. Lymph. 0.52 x10E3/uL 1.0-3.5 [facility] Abs. Curry. 0.83 x10E3/uL 0.1-1.0 [facility] Abs. Eosin. 0.11 x10E3/uL 0.1-0.7 [facility] Abs. Baso. 0.03 x10E3/uL 0.0-0.1 N [facility] l Abs. Imm. Gran. 0.18 x10E3/uL 0.0-0.1 [facility] spital ANRBC% 0 % 0 [facility] DIFFERENTIAL CONFIRMED BY SLIDE REVIEW. ID Date Data Source [id number] 05/18/2020 11:40:00 PM EDT [facility] jer ANTI-COAGULANTS PT.IS TAKING: Plavix Name Value Range Interpretation Code Description Data Rosa rce(s) Supporting Document(s) APTT 22.2 SECONDS 21.2-31.2 [facility] NOTE NEW REFERENCE RANGE EFFECTIVE ID Date Data Source [id number] 05/18/2020 11:40:00 PM EDT [facility] jer ANTI-COAGULANTS PT.IS TAKING: Plavix Name Value Range Interpretation Code Description Data Rosa rce(s) Supporting Document(s) INR 0.91 0.91-1.09 [facility] INR THERAPEUTIC RANGES Prophylaxis of ve nous thrombosis ] (high risk surgery) ]Treatment of venous thrombosis ]Treatment of pulmonary embolism ]Prevention of systemic embolism ] 2.0-3.0Tissue heart valves ]Acute myocardial infarction ]Valvular disease ]Atrial fibrillation ]Recurrent systemic embolism ] Mechanical prosthetic heart valves -------- 2.5-3.5 ID Date Data Source [id number] 05/18/2020 11:01:00 PM EDT [facility] Name Value Range Interpretation Code Description Data Rosa rce(s) Supporting Document(s) TROPONIN HS 67.8 ng/L 3.0-82.3 [facility] ID Date Data Source [id number] 05/18/2020 11:01:00 PM EDT [facility] Name Value Range Interpretation Code Description Data Rosa rce(s) Supporting Document(s) LACTIC ACID COMFORT 0.4 mmol/L 0.4-2.0 [facility] ID Date Data Source [id number] 05/18/2020 11:00:00 PM EDT [facility] Name Value Range Interpretation Code Description Data Rosa rce(s) Supporting Document(s) ESR 36 MM/HR 0-20 H [facility] ID Date Data Source [id number] 05/25/2020 12:12:00 PM EDT [facility] Name Value Range Interpretation Code Description Data Rosa rce(s) Supporting Document(s) [facility] ID Date Data Source [id number] 05/25/2020 12:11:00 PM EDT [facility] Name Value Range Interpretation Code Description Data Rosa rce(s) Supporting Document(s) [facility] ID Date Data Source [id number] 05/18/2020 10:59:00 PM EDT [facility] Name Value Range Interpretation Code Description Data Rosa rce(s) Supporting Document(s) C-REACTIVE PROT 3.66 mg/dL 0.00-0.49 [facility] ID Date Data Source [id number] 05/18/2020 09:29:00 PM EDT [facility] [address] [address]SYELXUN AND PHYSICALPATIENT NAME: ELA PONCE MR#: [id number] PHYSICIAN: MICHAEL WANG MDAUTHOR: Michael Wang MD DATE: 05/18/20 #: 2EASTHISTORY & PHYSICAL DATE: 05/18/20 : 45EVALUATION TIME: 2128HisChief Complaint/Admit ReasonTransfer [facility] MRIHistory of Presenting [id number] female past medical history of COPD, spinal stenosis, depression,hyperlipidemia, type 2 diabetes, nicotine addiction, anxiety, hypothyroidism,debility, CKD, peripheral vascular disease, hypoalbuminemia, was initiallyadmitted at [facility] being treated for right upper lobe pneumonia andsepsis on antibiotics and extreme deconditioning, unsteady gait and frequentfalls during the hospitalization patient complained of back pain on examinationwas noted to have severe tenderness over the lumbar and thoracic spine. CRPinitially was 6.5 later became elevated to 25 with corresponding rise and WBCto 23. Decision was made to initially transfer patient to [facility] for an MRI momo done to rule out discitis and then patient be transferred back to [facility] however upon arrival at [facility] patient refused the MRI and patient wasbrought back to [facility] At [facility] patient became agitated andsomewhat combative sustained ecchymosis in bilateral upper extremities.Patient had to be given B-52. [facility] again for the second time patientbecame agitated. At [facility] patient was also found to have UTI, CT ofthe abdomen and pelvis showed some questionable/possible pyelonephritis.Patient was given vancomycin and Zosyn at [facility] and transferred to [facility]. When I evaluated patient patient was completely sedated and was unable togive any history, as she was given B-52 and Ativan prior to arriving here.History obtained from medical records.Past Medical/Surgical HistoryPast Medical/Surgical HistoryMedical ProblemsAnxietyBack painChronic anemiaCKD (chronic kidney disease)COPD (chronic obstructive pulmonary disease)DebilityDepressionDiabetesHLD (hyperlipidemia)HTN (hypertension)HypoalbuminemiaHypothyroidismPneumoniaPVD (peripheral vascular disease)Spinal stenosisUTI (urinary tract infection)Reconciled Home Med ListSee Reconciled Home Medication ListAllergiesCoded Allergies:SULFA (05/18/20)bacitracin (05/18/20)cortisone (05/18/20)fluoxetine (05/18/20)neomycin (05/18/20)polymyxin B (05/18/20)red (food color) (05/18/20)tramadol (05/18/20)Family history Unable to obtain as patient sedated.Social History Unable to obtainHealth maintenance Unable to obtainReview of SystemsUnable to obtainUnable to obtain patient sedated.ExamVital SignsVital Signs-24 HRS05/18 05/18 05/19 05/19311746 8098 0132 0543Temp 97.9 97.4 97.8Pulse 110 99 100Resp 17 17 17B/P 160/91 159/63 160/67B/P MeanPulse Ox 92 98 93O2 Delivery Nasal cannula Nasal cannula Nasal cannula Nasal cannulaO2 Flow Rate 2LPM 3LPM 2 0MeH0Tdlygqdi ExaminationGeneral Appearance sedated, Response to verbal and tactile stimuliHead normocephalicENT dry mucosal membranesEye AssessementAssessment: normal scleraNeck no JVDCardiovascular regular rate, no gallop, no rub, normal heart soundsRespiratory clear to auscultation (anteriorly)Abdomen soft, no distention, normal bowel sounds, no guardingUrinary no bladder distentionExtremities no cyanosis, no edema, normal pulsesMuscoskeletal normal inspectionNeurological sedatedSkin AssessmentSkin dryPsych/Mental Status Unable to assess. Patient sedated.Data ReviewLaboratory DataRecent Labs-48 hours05/18 2200 2200 0130ChemistrySodium (136 - 147 mmol/L) 146Potassium (3.5 - 5.1 mmol/L) 4.3Chloride (99 - 110 mmol/L) 111 HSerum Bicarbonate (20 - 33 mmol/L) 27Anion Gap (10.0 - 20.0) 12.3BUN (7 - 23 mg/dL) 27 HCreatinine (0.500 - 1.300 mg/dL) 0.991Estimated GFR/1.73 m2 (mL/min) 58Glucose (70 - 110 mg/dL) 348 HPlasma Lactic Acid Sedrick (0.4 - 2.0 mmol/L) 0.4Calcium (8.3 - 10.7 mg/dL) 8.9Total Bilirubin (0.1 - 1.1 mg/dL) 0.6AST (6 - 38 U/L) 30ALT (6 - 54 U/L) 41Alkaline Phosphatase (45 - 117 U/L) 112Troponin I High Sens (3.0 - 82.3 ng/L) 67.8C-Reactive Protein (0.00 - 0.49 mg/dL) 3.66 HTotal Protein (6.0 - 7.8 g/dL) 5.3 LAlbumin (3.5 - 5.0 g/dL) 2.6 LGlobulin (2.3 - 3.5 g/dL) 2.7Albumin/Globulin Ratio (1.0 - 2.5) 1.0CoagulationINR (0.91 - 1.09) 0.91APTT (21.2 - 31.2 SECONDS) 22.2HematologyWBC (4.0 - 10.5 x10E3/uL) 14.51 HRBC (4.20 - 5.40 x10E6/uL) 3.16 LHgb (12.0 - 16.0 g/dL) 9.5 LHct (37.0 - 47.0 %) 29.7 LMCV (81.0 - 99.0 fL) 94.0MCH (27.0 - 31.0 pg) 30.1MCHC (32.7 - 35.6 g/dL) 32.0 LRDW (11.5 - 14.0 %) 15.0 HPlt Count (150 - 450 x10E3/uL) 158MPV (6.9 - 9.5 fl) 9.9 HImmature Gran % (Auto) (0.1 - 2.0 %) 1.2Neut % (Auto) (34 - 64 %) 88.5 HLymph % (Auto) (25 - 45 %) 3.6 LMono % (Auto) (1.7 - 10.6 %) 5.7Eos % (Auto) (0.4 - 7.0 %) 0.8Baso % (Auto) (0.1 - 2.0 %) 0.2Abs Immat Gran (auto) (0.0 - 0.1 x10E3/uL) 0.18 HAbsolute Neuts (auto) (1.2 - 7.6 x10E3/uL) 12.84 HAbsolute Lymphs (auto) (1.0 - 3.5 x10E3/uL) 0.52 LAbsolute Monos (auto) (0.1 - 1.0 x10E3/uL) 0.83Absolute Eos (auto) (0.1 - 0.7 x10E3/uL) 0.11Absolute Basos (auto) (0.0 - 0.1 x10E3/uL) 0.03Nucleated RBC % (auto) (0 %) 0ESR (0 - 20 MM/HR) 36 H04/866132OwdvkhzokPljuun (136 - 147 mmol/L) 146Potassium (3.5 - 5.1 mmol/L) 3.9Chloride (99 - 110 mmol/L) 111 HSerum Bicarbonate (20 - 33 mmol/L) 27Anion Gap (10.0 - 20.0) 11.9BUN (7 - 23 mg/dL) 27 HCreatinine (0.500 - 1.300 mg/dL) 0.993Estimated GFR/1.73 m2 (mL/min) 58Glucose (70 - 110 mg/dL) 319 HCalcium (8.3 - 10.7 mg/dL) 8.7Total Bilirubin (0.1 - 1.1 mg/dL) 0.5AST (6 - 38 U/L) 32ALT (6 - 54 U/L) 40Alkaline Phosphatase (45 - 117 U/L) 110Total Protein (6.0 - 7.8 g/dL) 5.4 LAlbumin (3.5 - 5.0 g/dL) 2.6 LGlobulin (2.3 - 3.5 g/dL) 2.8Albumin/Globulin Ratio (1.0 - 2.5) 0.9 LHematologyWBC (4.0 - 10.5 x10E3/uL) 13.42 HRBC (4.20 - 5.40 x10E6/uL) 2.98 LHgb (12.0 - 16.0 g/dL) 9.0 LHct (37.0 - 47.0 %) 28.1 LMCV (81.0 - 99.0 fL) 94.3MCH (27.0 - 31.0 pg) 30.2MCHC (32.7 - 35.6 g/dL) 32.0 LRDW (11.5 - 14.0 %) 15.0 HPlt Count (150 - 450 x10E3/uL) 144 LMPV (6.9 - 9.5 fl) 10.0 HImmature Gran % (Auto) (0.1 - 2.0 %) 1.4Neut % (Auto) (34 - 64 %) 88.7 HLymph % (Auto) (25 - 45 %) 3.6 LMono % (Auto) (1.7 - 10.6 %) 5.4Eos % (Auto) (0.4 - 7.0 %) 0.8Baso % (Auto) (0.1 - 2.0 %) 0.1Abs Immat Gran (auto) (0.0 - 0.1 x10E3/uL) 0.19 HAbsolute Neuts (auto) (1.2 - 7.6 x10E3/uL) 11.89 HAbsolute Lymphs (auto) (1.0 - 3.5 x10E3/uL) 0.48 LAbsolute Monos (auto) (0.1 - 1.0 x10E3/uL) 0.73Absolute Eos (auto) (0.1 - 0.7 x10E3/uL) 0.11Absolute Basos (auto) (0.0 - 0.1 x10E3/uL) 0.02Nucleated RBC % (auto) (0 %) 9Djllahtaablk91/08 2200 BLOOD: Blood Culture - RECD05/18 2199 BLOOD: Blood Culture - RECDImagingAll imaging from [facility].Chest x-ray:Impression:Persistent parenchymal disease in the right upper lobe.Properly positioned right central line.CT chest without IV contrast:1. Right upper and lower lobe infiltrates unchanged compared to previousstudy.2. There are parenchymal densities in the left lower lobe consistent withatelectasis or infiltrate.3. Very small pericardial effusion.4. Small hiatal hernia.Cardiology/EKGKG: Sinus rhythm rate of 94 bpm. Borderline low voltage in extremity leads.Nonspecific T wave changes. Q waves in V1, V2 and V3. No acute ST changes.Assessment/PlanDiagnosis/Problem1. Back painA&PPatient complained of back pain. On examination had lumbar and thoracictenderness in the setting of increasing CRP and increasing leuko cytosis.Concern for discitis. Patient transferred to [facility] for MRI thoracic and lumbarspine.-We will obtain MRI of the thoracic and lumbar spine. Spoke with patient's sonpatient does not have any metal/ implants in the body that will prevent MRI beobtained.-Patient started on vancomycin and Zosyn-Leukocytosis trending down.-Follow-up blood cultures-Pain management.2. PneumoniaA&PContinue vancomycin and Zosyn.-Follow blood cultures.3. UTI (urinary tract infection)A&PUTI questionable Felipe on CT abdomen pelvis-Continue with Zosyn.-Follow-up urine culture.4. HLD (hyperlipidemia)A&PWe will check CPK. Will hold statin ending results of CPK. Patient withextensive bruising bilateral forearms.5. Spinal stenosisA&PChronic history of spinal stenosis continue with pain management.6. DepressionA&PContinue with duloxetine.7. HypothyroidismA&PCheck TSH.-Continue with levothyroxine.8. HTN (hypertension)A&P-Continue with lisinopril and hydralazine.-Monitor blood pressure.9. COPD (chronic obstructive pulmonary disease)A&P2 L home O2 dependent.-Oxygen [id number]. CKD (chronic kidney disease)A&PHistory of CKD. SU at [facility]. Creatinine today 0.9.-Monitor renal function.11. DiabetesA&PPlaced on insulin sliding scale.-Monitor fingersticks.-Patient had hypoglycemic episodes at [facility] and her Levemir dose wasdecreased to 10 units daily.12. AnxietyA&Mendoza chronic benzodiazepines. Will continue.13. PVD (peripheral vascular disease)A&PHistory of stent placement.Continue with Plavix,-Continue to monitor.14. DebilityA&P-Supportive care-Consider PT/OT when patient is more alert.15. HypoalbuminemiaA&PEncourage p.o. intake. Nutrition supplementation.Ensure p.o. 3 times daily.Resuscitation status Full codePlan discussed with sonCase discussed with nursing staffCopies ToCopies to Family Provider: NON,EVTE ProphylaxisVTE Prophylaxis: Heparin subcutaneously every 12 hours.CQM VTE HISTORYVTE HISTORYPrior VTE? NoDATE SIGNED: 05/19/20 Electronically SignedTIME SIGNED: 821 MICHAEL WANG MD Name Value Range Interpretation Code Description Data Rosa rce(s) Supporting Document(s) ID Date Data Source [id number] 05/18/2020 07:05:00 PM EDT [facility] Summary of HospitalizationReason for Ad missionweakness, pneumonia and unsteady gait/frequent fallsHospital CourseBreifly, the patient has a chronic history of Narcotic and Benzo use for chronicLBP and anxiety.She was admitted for treatement of pneumonia and had developed elevated wbc, crpand mid spine tenderness. This morning she was quite agitated and required dosing of Ativan (see progress note).We attempted to have multiple peripheral lines placed to no avail and made arrangements for transfer to [facility] this morining for MRI and PICC line placement.PICC line was not successful d/t poor vein size and MRI not performed (no IV access for Quinn)She was returned by EMS to . On way she became agitated and required dose of Versed 5mg IMx1. I recommended she be returned through the ED for evaluation andlikely central line placement. Prior studies today include:Noncontrast Head CT: showed atrophy but no acute intracranial abnormalities.CT chest, abdomen/plevis: right lung pneumonia, large amount of s tool and bladder distention for which we inserted a garcia catheterU/a was negative for UTI. WBC showed improvement in leukocytosis but bump in her CRp was noted.Electrolytes wnl. I had spoken to her son Johann by phone and informed him of my cocern for furtherdetrerioration, unable to have a definitive IV access, IV antibioitics and need for MRI of spine to r/o Discitis.He consented for TLC line to be placed and transfer to higher level if needed.Please refer to today's progress note for further information. Diagnoses (Current Visit)Problem List 1. COPD (chronic obstructive pulmonary disease) 2. Pneumonia due to methicillin resistant Staphylococcus aureus 3. Debility 4. Diabetes mellitus type 2 with complications, uncontrolled 5. Spinal stenosis of lumbar region 6. Chronic pain 7. Depression 8. Anxiety 9. Nicotine addiction 10. Anemia 11. Hypercholesterolemia 12. Vitamin D deficiency 13. Hypertension 14. Full code status 15. Fracture of toe of left foot 16. Hyponatremia 17. Leukocytosis 18. Hypoxia 19. Community acquired pneumonia 20. COPD exacerbation 21. Chronic kidney disease, stage III (moderate) 22. Ambulatory dysfunction 23. Generalized weakness 24. History of falling 25. Hypoalbuminemia 26. Right upper lobe pneumonia 27. Right lower lobe pneumonia 28. Metabolic encephalopathy 29. GERD (gastroesophageal reflux disease) 30. Hyperlipidemia 31. Constipation 32. Hypothyroidism Patient's Discharge ConditionVital SignsVital Signs Date Time Temp Pulse Resp B/P B/P Pulse O2 O2 Flow FiO2 Mean Ox Delivery Rate 05/182 98.7 87 18 158/74 100 05/18 2011 170/74 05/17 2002 98.2 86 14 182/77 97 Patient's Discharge ConditionDischarge date 05/18/20Discharge condition fairDischarge Dispositiondischarge to ED Physical ExaminationEENT PERRL/EOMINeck suppleRespiratory rhonchi (right lung field)Cardiovascular regular rate/rhythmPeripheral Pulses2+ carotid (R), 2+ carotid (L), 2+ femoral (R), 2+ femoral (L), 2+ dorsalis pedis (R), 2+ dorsalis pedis (L)Gastrointestinal normal bowel sounds, non tender, soft, no organomegalyBack normal inspection, no CVA tenderness, vertebral tenderness (at transition of T and L spine)Extremity no calf tenderness, no pedal edemaNeurologic/Psychiatric confused and agitatedSkin normal color, warm/dryLymphatic no adenopathy, axilla node tender (R) Patient/Family InstructionsActivity: n/aDiet: npo, will need definitive care through EDTime spent by provider to complete discharge > 30 minutes Name Value Range Interpretation Code Description Data Rosa rce(s) Supporting Document(s) ID Date Data Source [id number] 05/18/2020 06:53:00 PM EDT [facility] Discharge Appointments Outpatient Tests *patient discharged to ED for definitive care Diagnosis & Medication Allergy Information Coded Allergies:Sulfa (Sulfonamide A ntibiotics) (Mild, Itching, rash 10/13/15)bacitracin (Mild, Itching 10/13/15)cortisone (Mild, Itching 10/13/15)red (food color) (Mild, Rash 10/13/15)tramadol (Mild, Itching 10/13/15)fluoxetine (unknown 10/13/15)neomycin (unknown 10/13/15)polymyxin B (unknown 10/13/15) DiagnosisProblem ListMedical Problems Abnormal CBC Abnormal chest CT Abnormal urinalysis Acute exacerbation of chronic low back pain Ambulatory dysfunction Anemia Anorexia Anxiety Chronic kidney disease, stage III (moderate) Chronic pain Community acquired pneumonia Constipation COPD (chronic obs tructive pulmonary disease) COPD exacerbation Debility Dehydration Depression Diabetes mellitus type 2 with complications, uncontrolled Fracture of toe of left foot Full code status Generalized weakness GERD (gastroesophageal reflux disease) History of falling History of renal artery stenosis Hypercholesterolemia Hyperlipidemia Hypertension Hypoalbuminemia Hypochloremia Hyponatremia Hypothyroidism Hypoxia Leukocytosis Memory loss Metabolic encephalopathy Nicotine addiction Noncompliance w/medication treatment due to intermit use of medication Normocytic anemia Peripheral vascular disease Pneumonia due to methicillin resistant Staphylococcus aureus Prerenal azotemia Proteinuria Right lower lobe pneumonia Right upper lobe pneumonia Spinal stenosis of lumbar region Vitamin D deficiency Vaccine InformationDate Flu Vaccination: October 2015Date Pneumococcal Vaccination: UNSURE IF SHE HAS HADDate Tetanus Vaccination: UNSURE Discharge Instructions Diet:- npo, will need definitive care through ED SmokingSmoker? QUIT LESS THAN 1 YEAR AGO Review & Sign* I understand the instructions I have received: Patient/Family Signature: Date/Time OrderingProvider Signature: Date/Time Discharging Nurse Signature: Date/Time Name Value Range Interpretation Code Description Data Rosa rce(s) Supporting Document(s) ID Date Data Source [id number] 05/18/2020 02:46:00 PM EDT [facility] DATE OF EXAMINATION: 05/18/2020 14:24 EDT CHEST 1 VIEW HISTORY: Central line TECHNIQUE: Single frontal radiograph of chest COMPARISON: CT scan of 05/18/2020 FINDINGS: Parenchymal disease in the right upper lobe is again identified. Right centralline is in place with is tip in the mid to distal superior vena cava. There isno pneumothorax. There are no pleural effusions. Heart is normal in size. IMPRESSION: Persistent parenchymal disease in the right upper lobe. Properly positioned right central line. Electronically signed in [facility] by: Tabitha De La Vega M.D. 05/18/2020 14:40 EDT Name Value Range Interpretation Code Description Data Rosa rce(s) Supporting Document(s) ID Date Data Source [id number] 05/18/2020 02:43:00 PM EDT [facility] TSYSORDER [id number] Name Value Range Interpretation Code Description Data Rosa rce(s) Supporting Document(s) ARTERIAL BLOOD GAS pH 7.45 7.35-7.45 [facility] spital ARTERIAL BLOOD GAS PCO2 39.3 mmHg 30-45 [facility] ARTERIAL BLOOD GAS PO2 67 mmHg 75-100 L [facility] ospital ARTERIAL BLOOD GAS HCO3 26.9 meq/L 17-23 H [facility] ARTERIAL BLOOD GAS BASE EXCESS 3.1 -2.0-2.0 H [facility] ARTERIAL BLD GAS O2 SATURATION 94.9 % 90-98 [facility] ARTERIAL BLOOD GAS CTCO2 28.1 mmol/L 23.0-31.0 [facility] ID Date Data Source [id number] 05/18/2020 03:18:00 PM EDT [facility] TSYSORDER [id number] Name Value Range Interpretation Code Description Data Rosa rce(s) Supporting Document(s) TROPONIN I 0.071 ng/mL 0.000-0.056 *H [facility] ID Date Data Source [id number] 05/18/2020 03:01:00 PM EDT [facility] TSYSORDER [id number] Name Value Range Interpretation Code Description Data Rosa rce(s) Supporting Document(s) LACTIC ACID 0.6 mmol/L 0.4-2.0 [facility] ID Date Data Source [id number] 05/18/2020 01:43:00 PM EDT [facility] Exam Number: [id number] OF EXAMINATIO N: 05/18/2020 11:55 EDTU/S GUIDE FOR VASCULAR ACCESSHISTORY: PICC line placementPRELIMINARY ULTRASOUND FINDINGS:Both upper extremities were evaluated revealing extremely small 1 to 2mm veins.Unable to perform the procedure.IMPRESSION:Procedure terminated due to extremely small vasculatureElectronically signed in PS360 by: Tabitha De La Vega M.D. 112:33 EDT Reported By: Kemal DE LA VEGA M.D. Signed By: Pramod DE LA VEGA M.D. Name Value Range Interpretation Code Description Data Rosa rce(s) Supporting Document(s) ID Date Data Source [id number] 05/18/2020 10:15:00 AM EDT [facility] spital Name Value Range Interpretation Code Description Data Rosa rce(s) Supporting Document(s) URINE RBC 1-3 /hpf 0-3 [facility] URINE WBC 0-2 /hpf 0-5 H [facility] URINE EPITHELIAL CELLS 2+ /hpf [facility] URINE BACTERIA TRACE NONE SEEN H [facility] URINE MUCUS 1+ NEGATIVE H [facility] URINE AMORPHOUS SEDIMENT 3+ [facility] ID Date Data Source [id number] 05/18/2020 10:14:00 AM EDT [facility] ital Name Value Range Interpretation Code Description Data Rosa rce(s) Supporting Document(s) URINE COLOR. YELLOW [facility] URINE APPEARANCE SLIGHTY CLOUDY [facility] spital URINE GLUCOSE (UA) NEGATIVE mg/dL NEGATIVE [facility] URINE BILIRUBIN NEGATIVE NEGATIVE [facility] URINE KETONE NEGATIVE mg/dL NEGATIVE [facility] SPECIFIC GRAVITY,URINE 1.020 1.005-1.030 [facility] URINE BLOOD NEGATIVE NEGATIVE [facility] PH,URINE 6.5 5.0-9.0 [facility] URINE PROTEIN 4+(>=300) mg/dL NEGATIVE H [facility] ital URINE UROBILINOGEN NORMAL(0.2-1) mg/dL 0-1 R [facility] URINE NITRATE NEGATIVE NEGATIVE [facility] URINE LEUKOCYTE ESTERASE NEGATIVE NEGATIVE [facility] ID Date Data Source [id number] 05/18/2020 09:03:00 AM EDT [facility] DATE OF EXAMINATION: 05/18/2020 8:18 EDT A BD/PEL NO CONTRAST HISTORY: Pain. Agitation. TECHNIQUE: This CT exam was performed using the following dose reduction techniques:automated exposure control, adjustment of mA and/or kV according to thepatient's size, and use of iterative reconstruction technique. Standard contiguous axial spiral imaging was obtained from the dome of thediaphragms through the symphysis pubis without oral contrast and withoutintravenous contrast administration and with coronal reformatting. FINDINGS: Lower thorax: As described on CT scan of the chest ABDOMEN: Liver: Unremarkable unenhancedGallbladder and bile ducts: UnremarkablePancreas: UnremarkableSpleen: UnremarkableAdrenals: UnremarkableKidneys and ureters: Severe atrophy of right kidney with a 1 cm complexappearing cyst in the posterior aspect of its mid to upper pole. There is someperinephric soft tissue stranding on the left side. Pyelonephritis is notexcluded.Stomach and bowel: Massive amount of stool is seen throughout the colon mainlyconcentrated in the right hemicolon and transverse colon and to a lesser extentdescending colonAppendix: Normal PELVIS: Bladder: Unopacified, distendedReproductive: Not seen No free fluid or free air IMPRESSION: Findings highly suspicious for left- sided pyelonephritis. Massive amount of stool throughout the colon. Atrophy of right kidney with a complex appearing cystic lesion in its posterioraspect can't be more accurately assessed with sonography. Markedly distended bladder. Electronically signed in PS360 by: Tabitha De La Vega M.D. 05/18/2020 8:58 EDT Name Value Range Interpretation Code Description [facility] Supporting Document(s) ID Date Data Source [id number] 05/18/2020 09:01:00 AM EDT [facility] l DATE OF EXAMINATION: 05/18/2020 7:58 EDT C HEST W/O IV CONTRAST HISTORY: Shortness of breath. Agitation. TECHNIQUE: This CT exam was performed using the following dose reduction techniques:automatic exposure control, adjustment of mA and/or kV according to thepatient's size, and use of iterative reconstruction technique. Standard contiguous axial spiral imaging was obtained from lung apices to thelun g bases without intravenous contrast administration and with coronalreformatting. FINDINGS: Severe calcific plaque formation of the thoracic aorta and origin of the greatvessels is noted. There is no lymphadenopathy or pericardial effusion. Severecalcified coronary arterial plaque formation is also identified. Patchyparenchymal disease in the right upper lobe is likely fulfillment representative ofpneumonia and should be followed to complete resolution. IMPRESSION: [id number]-vp-[id number] parenchymal disease in the right upper lobe consistent withpneumonia should be followed to complete resolution. Severe calcified coronary arterial plaque formation likely hemodynamicallysignificant. Electronically signed in PS360 by: Tabitha De La Vega M.D. 05/18/2020 8:56 EDT Name Value Range Interpretation Code Description Data Rosa rce(s) Supporting Document(s) ID Date Data Source [id number] 05/18/2020 09:00:00 AM EDT [facility] l DATE OF EXAMINATION: 05/18/2020 8:18 EDT BRAIN W/O CONTRAST HISTORY: Agitation TECHNIQUE: This CT exam was performed using the following dose reduction techniques:automatic exposure control, adjustment of mA and/or kV according to thepatient's size, and use of iterative reconstruction technique. Standard contiguous axial spiral imaging was obtained from the skull basethrough the vertex without contrast administration and with coronalreformatting. FINDINGS: BRAIN: Moderate atrophy with prominence of ventricles and sulci is symmetricalfashion is noted. Calcified plaque formation of the vertebral art eries is seen.There are no parenchymal hematoma with mass effect or midline shift. IMPRESSION: Moderate atrophy. Electronically signed in PS360 by: Tabitha De La Vega M.D. 05/18/2020 8:55 EDT Name Value Range Interpretation Code Description Data Rosa rce(s) Supporting Document(s) ID Date Data Source [id number] 05/18/2020 07:17:00 AM EDT [facility] Name Value Range Interpretation Code Description Data Rosa rce(s) Supporting Document(s) COVID-19 NEGATIVE [facility] This lab was ordered by [facility] and reported by [facility]. ID Date Data Source [id number] 05/18/2020 07:36:00 AM EDT [facility] jer Name Value Range Interpretation Code Description Data Rosa rce(s) Supporting Document(s) COVID-19 NEGATIVE NEGATIVE [facility] Negative results should be treated as pr esumptive and, ifinconsistent with clinical signs and symptoms or necessaryfor patient management, should be tested with differentauthorized or cleared molecular tests.Negative results do not preclude SARS-CoV-2 infection andshould not be used as the sole basis for patient managementdecisions.This is a rapid molecular isothermal nucleic acidamplification technology (NAAT) in vitro diagnostic testutilizing a loop mediated isothermal amplification (LAMP)test with nicking endonuclease amplification reaction(NEAR) intended for the qualitative detection of nucleica chucho from the SARS-CoV-2 viral RNA in direct nasal,nasopharyngeal or throat swabs from individuals who aresuspected of COVID-19.Results are for the indentification of SARS-CoV-2 RNA. GemZZLR-MwL-8 RNA is generally detectable in respiratorysamples during the actue phase of infection. ID Date Data Source [id number] 05/18/2020 07:38:00 AM EDT [facility] l Name Value Range Interpretation Code Description Data Rosa rce(s) Supporting Document(s) ERYTHROCYTE SEDIMENTATION RATE 13 mm/hr 0-30 [facility] ID Date Data Source [id number] 05/18/2020 07:03:00 AM EDT [facility] l Name Value Range Interpretation Code Description Data Rosa rce(s) Supporting Document(s) C REACTIVE PROTEIN 25.7 mg/L 0.0-3.0 H [facility] ID Date Data Source [id number] 05/18/2020 06:46:00 AM EDT [facility] l Name Value Range Interpretation Code Description Data Rosa rce(s) Supporting Document(s) GLUCOSE 258 mg/dL 74-106 H [facility] BLOOD UREA NITROGEN 34 mg/dL 7-18 H [facility] ital CREATININE 1.40 mg/dL 0.6-1.0 H [facility] SODIUM 139 mmol/L 136-145 [facility] POTASSIUM 4.9 mmol/L 3.5-5.1 [facility] CHLORIDE 102 mmol/L 98-107 [facility] CO2 27 mmol/L 21-32 [facility] CALCIUM 9.2 mg/dL 8.5-10.1 [facility] ANION GAP 10.0 mmol/L 5-12 [facility] GLOMERULAR FILTRATION RATE 37 mL/min [facility] GFR IS CALCULATED IN mL/min/1.73m2 [facility] L FUNCTION: >90MILDLY DECREASED: 60-89MILDY TO MODERATELY DECREASED: 45-59 MODERATELY TO SEVERELY DECREASED: 30-44SEVERELY DECREASED: 15-29RENAL FAILURE: <15 ID Date Data Source [id number] 05/18/2020 06:36:00 AM EDT [facility] l Name Value Range Interpretation Code Description Data Rosa rce(s) Supporting Document(s) WHITE BLOOD COUNT 14.0 K/mm3 4.0-10.0 [facility] RED BLOOD COUNT 3.70 M/mm3 4.00-5.50 L [facility] l HEMOGLOBIN 11.3 gm/dL 12.0-16.0 L [facility] HEMATOCRIT 33.4 % 36.0-48.8 L [facility] MEAN CELL VOLUME 90.3 fl 80-96 [facility] MEAN CORPUSCULAR HEMOGLOBIN 30.5 pg 27.0-31.0 [facility] MEAN CORPUSCULAR HGB CONC 33.8 g/dl 32.0-36.0 [facility] RED CELL DISTRIBUTION WIDTH 15.1 % 10.0-14.5 H [facility] PLATELET COUNT 159 K/mm3 172-450 L [facility] MEAN PLATELET VOLUME 10.1 fl 9.0-13.0 [facility] pital GRAN % 85.2 % 50-80.0 H [facility] IG% 2.1 % 0.0-0.2 H [facility] LYMPH % 6.5 % 25.0-50.0 L [facility] MONO % 5.7 % 2.0-10.0 [facility] EOS % 0.4 % 0-5.0 [facility] BASO % 0.1 % 0.0-2.0 [facility] GRAN # 12.0 K/mm3 2.0-8.00 H [facility] IG# 0.3 K/mm3 0.0-0.2 H [facility] LYMPH # 0.9 K/mm3 1.0-5.0 L [facility] MONO # 0.8 K/mm3 0.10-1.20 [facility] EOS # 0.1 K/mm3 0.0-0.5 [facility] BASO # 0.0 K/mm3 0.0-0.2 [facility] ID Date Data Source [id number] 05/17/2020 10:50:00 PM EDT [facility] Name Value Range Interpretation Code Description Data Rosa rce(s) Supporting Document(s) URINE AMPHETAMINES POSITIVE <1000 ng/mL H [facility] pital COCAINE, URINE NEGATIVE <300 ng/mL [facility] THC,URINE POSITIVE <50 ng/mL H [facility] URINE BENZODIAZEPINES POSITIVE <300 ng/mL H [facility] ospital URINE,TCA NEGATIVE <1000 ng/mL [facility] IF A NEGATIVE RESULT IS OBTAINED AND ING ESTION OF TRICYCLICANTIDEPRESSANTS IS SUSPECTED, A SERUM SAMPLE SHOULD BEOBTAINED AND TESTED USING AN APPROPRIATE METHOD. URINE BARBITURATES NEGATIVE <300 ng/mL [facility] ital MDMA NEGATIVE <500 ng/mL [facility] URINE,OPIATES NEGATIVE <300 ng/mL [facility] PCP,URINE NEGATIVE <25 ng/mL [facility] OXYCODONE URINE POSITIVE <100 ng/mL H [facility] l PROPOXYPHENE NEGATIVE <300 ng/mL [facility] THESE TESTS ARE PERFORMED USING AN IMMU NOASSAY FOR THEQUALITATIVE DETERMINATION OF THE PRESENCE OF THE MAJORMETABOLITES OF DRUGS OF ABUSE. THESE TESTS ARE ONLY ASCREENING AND NOT CONFIRMATORY. CLINICAL CONSIDERATION ANDPROFESSIONAL JUDGMENT MUST BE APPLIED TO ANY DRUG OF ABUSETEST RESULT. ID Date Data Source [id number] 05/20/2020 01:16:00 PM [facility] R[facility] WBCSRARE SECSSMALL NUMBERS GRAM POS BACILLISMALL NUMBERS GRAM-POSITIVE COCCI IN CHAINSRARE GRAM NEGATIVE BACILLIRARE YEAST LIKE Name Value Range Interpretation Code Description Data Rosa rce(s) Supporting Document(s) ORGANISM [facility] COLONY COUNT N [facility] ID Date Data Source [id number] 05/17/2020 12:07:00 PM EDT [facility] DATE OF EXAMINATION: 05/17/2020 7:50 EDT CHEST 2 VIEWS HISTORY: Shortness of breath TECHNIQUE: PA and lateral radiographs of the chest COMPARISON: CT scan of 05/14/2020 FINDINGS: Pleural parenchymal disease in the right upper lobe is again identifiedunchanged since the prior study. Cardiac silhouette and pulmonary vascularity iswithin normal limits. There is no effusion. IMPRESSION: Persistent pleural-parenchymal disease in the right upper lobe without change. Electronically signed in PS360 by: Tabitha De La Vega M.D. 05/17/2020 12:01 EDT Name Value Range Interpretation Code Description Data Rosa rce(s) Supporting Document(s) ID Date Data Source [id number] 05/19/2020 02:06:00 PM EDT [facility] ospital Name Value Range Interpretation Code Description Data Rosa rce(s) Supporting Document(s) SPECIMEN SOURCE Urine . [facility] STREPTOCOCCUS PEUMONIAE AG Negative Negative [facility] BODY FLUID CULTURE STERILE Not indicated. . [facility] ORGANISM ID Not indicated. . [facility] PLEASE NOTE: Comment . [facility] [employer] standar ds require aculture to be performed on CSF specimens submitted forbacterial antigen testing. (CAP SANDRA.[id number]) Urine specimenswill not be cultured.Performed at: [address] [id number] Director: Ramu Cota MD, Phone: [phone] ID Date Data Source [id number] 05/19/2020 02:05:00 PM EDT [facility] Name Value Range Interpretation Code Description Data Rosa rce(s) Supporting Document(s) Specimen Source Urine [facility] Streptococcus pneumoniae Ag Negative Negative [facility] Body Fluid Culture, Sterile Not indicated. [facility] Organism ID Not indicated. [facility] Please Note: [facility] [employer] standar ds require a culture to beperformed on CSF specimens submitted for bacterial antigen testing.(CAP [id number]) Urine specimens will not be cultured. ID Date Data Source [id number] 05/18/2020 03:26:00 PM EDT [facility] the patient hospitalized ([facility] or [facility] Y Name Value Range Interpretation Code Description Data Rosa rce(s) Supporting Document(s) L PNEUMO SERO 1 NEGATIVE NEGATIVE N [facility] MANUAL ENTRY RECHECKED Screen for L. pneumophila serogroup 1: NEGATIVE (Presumptive negative for L. pneumophila serogroup 1 antigen in urine, suggesting no recent or current infection. Infection due to Legionella cannot be ruled out since other serogroups and species may cause disease, antigen may not be present in urine in early infection, and the level of antigen present in the urine may be below the detection limit of the test.)TESTED BY CHROMATOGRAPHIC IMMUNOASSAY (REFERENCE RANGE= NEGATIVE) ID Date Data Source [id number] 05/17/2020 12:37:00 PM EDT [facility] Name Value Range Interpretation Code Description Data Rosa rce(s) Supporting Document(s) LEGIONELLA AG URINE-ANGELES SENT TO [facility] ID Date Data Source [id number] 05/23/2020 08:17:00 AM EDT [facility] Name Value Range Interpretation Code Description Data Rosa rce(s) Supporting Document(s) [facility] ID Date Data Source [id number] 05/23/2020 08:15:00 AM EDT [facility] Name Value Range Interpretation Code Description Data Rosa rce(s) Supporting Document(s) [facility] ID Date Data Source [id number] 05/17/2020 09:02:00 AM EDT [facility] l Name Value Range Interpretation Code Description Data Rosa rce(s) Supporting Document(s) LACTIC ACID 1.4 mmol/L 0.4-2.0 [facility] ID Date Data Source [id number] 05/17/2020 08:39:00 AM EDT [facility] l Name Value Range Interpretation Code Description Data Rosa rce(s) Supporting Document(s) PARTIAL THROMBOPLASTIN TIME 22.5 SECONDS 21.2-27.3 [facility] ID Date Data Source [id number] 05/17/2020 08:39:00 AM EDT [facility] l Name Value Range Interpretation Code Description Data Rosa rce(s) Supporting Document(s) PROTHROMBIN TIME (PATIENT) 9.9 SECONDS 9.1-11.6 [facility] INR 0.95 0.87-1.06 [facility] ID Date Data Source [id number] 05/17/2020 08:07:00 AM EDT [facility] l Name Value Range Interpretation Code Description Data Rosa rce(s) Supporting Document(s) ERYTHROCYTE SEDIMENTATION RATE 14 mm/hr 0-30 [facility] ID Date Data Source [id number] 05/17/2020 07:09:00 AM EDT [facility] Name Value Range Interpretation Code Description Data Rosa rce(s) Supporting Document(s) WHITE BLOOD COUNT 23.1 K/mm3 4.0-10.0 H [facility] RED BLOOD COUNT 3.87 M/mm3 4.00-5.50 L [facility] HEMOGLOBIN 11.7 gm/dL 12.0-16.0 [facility] HEMATOCRIT 34.6 % 36.0-48.8 L [facility] MEAN CELL VOLUME 89.4 fl 80-96 [facility] MEAN CORPUSCULAR HEMOGLOBIN 30.2 pg 27.0-31.0 H [facility] MEAN CORPUSCULAR HGB CONC 33.8 g/dl 32.0-36.0 [facility] RED CELL DISTRIBUTION WIDTH 15.1 % 10.0-14.5 H [facility] PLATELET COUNT 284 K/mm3 172-450 [facility] MEAN PLATELET VOLUME 9.8 fl 9.0-13.0 [facility] pital GRAN % 82.0 % 50-80.0 H [facility] IG% 1.8 % 0.0-0.2 H [facility] LYMPH % 7.4 % 25.0-50.0 L [facility] MONO % 7.8 % 2.0-10.0 [facility] EOS % 0.9 % 0-5.0 [facility] BASO % 0.1 % 0.0-2.0 [facility] GRAN # 19.0 K/mm3 2.0-8.00 *H [facility] IG# 0.4 K/mm3 0.0-0.2 H [facility] LYMPH # 1.7 K/mm3 1.0-5.0 [facility] MONO # 1.8 K/mm3 0.10-1.20 H [facility] EOS # 0.2 K/mm3 0.0-0.5 [facility] BASO # 0.0 K/mm3 0.0-0.2 [facility] ID Date Data Source [id number] 05/17/2020 07:36:00 AM EDT [facility] l Name Value Range Interpretation Code Description Data Rosa rce(s) Supporting Document(s) C REACTIVE PROTEIN 6.5 mg/L 0.0-3.0 H [facility] ID Date Data Source [id number] 05/17/2020 07:36:00 AM EDT [facility] Name Value Range Interpretation Code Description Data Rosa rce(s) Supporting Document(s) GLUCOSE 31 mg/dL 74-106 *L [facility] BLOOD UREA NITROGEN 32 mg/dL 7-18 H [facility] ital CREATININE 1.25 mg/dL 0.6-1.0 H [facility] SODIUM 140 mmol/L 136-145 [facility] POTASSIUM 4.4 mmol/L 3.5-5.1 [facility] CHLORIDE 102 mmol/L 98-107 [facility] CO2 29 mmol/L 21-32 [facility] CALCIUM 9.3 mg/dL 8.5-10.1 [facility] ANION GAP 9.0 mmol/L 5-12 [facility] GLOMERULAR FILTRATION RATE 42 mL/min [facility] GFR IS CALCULATED IN mL/min/1.73m2 [facility] L FUNCTION: >90MILDLY DECREASED: 60-89MILDY TO MODERATELY DECREASED: 45-59 MODERATELY TO SEVERELY DECREASED: 30-44SEVERELY DECREASED: 15-29RENAL FAILURE: <15 AST 47 U/L 15-37 H [facility] ALT 51 U/L 12-78 [facility] ALKALINE PHOSPHATASE 121 U/L 46-116 H [facility] pital TOTAL BILIRUBIN 0.3 mg/dL 0.2-1.0 [facility] TOTAL PROTEIN 5.9 g/dl 6.4-8.2 [facility] ALBUMIN 3.1 gm/dL 3.4-5.0 [facility] ID Date Data Source [id number] 05/18/2020 03:25:00 PM EDT [facility] Name Value Range Interpretation Code Description Data Rosa rce(s) Supporting Document(s) MRSA/SAUR SCRN [facility] l S.AUREUS SCREEN N [facility] al MRSA SCREEN N [facility] ID Date Data Source [id number] 05/17/2020 12:28:00 AM EDT [facility] HistoryChief Complaint/Admit ReasonRigh t upper and right lower lobe pneumoniaExtreme deconditioningUnsteady GaitFrequent FallsHistory of Presenting IllnessMrs Couture is a 74 year old female with history of significant COPD and heavy tobacco use for over 60 years, oxygen dependent, patient of Dr Erickson, history ofchronic lower back pain related to severe and well documented by CT LS spine pathology (grade 2 anterolithesis of L4 on L5, moderate to severe degenerative changes in the facet joints. 2. No fractures. 3. Severe central canal stenosis L2-L3, moderate to severe central spinal stenosis L3-L4, and severe central spinal stenosis L4- L5 4. Bulging annulus L5-S1 with bilateral facet joint arthroplasty), Perip[heral Artery Disease with hx of stents in lower extremities, Diabetes Mellitus, Chronic Kidney Disease, Drepression, Anxiety and history of occassional nonadherence to diet and medications who presented to emergency department of [facility] on 05/10/2020 with generalized malaise, severe weakness, cough and intractable back pain. She was found to have leucocytosis of18.2 and right upper and right lower lobe pneumonia with mediastinal lymphadenopathy. Of note Mrs Ponce was seen a day before her arrival here at [facility] and was discharged home with Cefdinir and Zithromax prescription.She was admitted to acute care floor for treatment of right sided pneumonia of both upper and lower lobe.Mrs Ponce has quite severe COPD and she is on chronic Prednisone and oxygen at home.She has productive cough with a thick green sputum. She was on inhaled steroids at home. As a chronic COPD neida ent she may have significant bacterial colonization so common in COPD patients especially with hx of bronchiectases. She is transitioned to swing bed status admission for further treatment of her pneumonia with IV antibiotics. I did have a phone conference with Mrs Ponce's Son who is also her health care proxy. He did agree his Mother is unsafe to be discharged home as her respiratory status is compromised and she does not have mental capacity to manage her medications while ill with a pneumonia. He also stated her oral intake is very diminished and she does not adhere to her diabetes diet and medications. The patient also tends to have rather liberal approachto pain medications and then ends up groggy and sedated.We did obtain PTevaluation as Mrs Ponce's gait is unsteady and poses risk of falling and injury.After extensive research of infectious history we did discover she had MRSA pneumonia in 2016. Will obtain MRSA screen and sputum and add Vancomycin unless proven negative. Past Medical/Surgical HistoryPast Medical/Surgical HistoryMedical Problems Abnormal CBC Abnormal chest CT Abnormal urinalysis Acute exacerbation of chronic low back pain Ambulatory dysfunction Anemia Anorexia Anxiety Chronic kidney disease, stage III (moderate) Chronic pain Community acquired pneumonia COPD (chronic obstructive pulmonary disease) COPD exacerbation Debility Dehydration Depression Diabetes mellitus type 2 with complications, uncontrolled Fracture of toe of left foot Full code status Generalized weakness History of falling History of renal artery stenosis Hypercholesterolemia Hypertension Hypoalbuminemia Hypochloremia Hyponatremia Hypothyroidism Hypoxia Leukocytosis Memory loss Nicotine addiction Noncompliance w/medication treatment due to intermit use of medication Normocytic anemia Peripheral vascular disease Pneumonia due to methicillin resistant Staphylococcus aureus Prerenal azotemia Proteinuria Right lower lobe pneumonia Right upper lobe pneumonia Spinal stenosis of lumbar region Vitamin D deficiency Reconciled Home Med ListSee Reconciled Home Medication List AllergiesCoded Allergies:Sulfa (Sulfonamide Antibiotics) (Mild, Itching, rash 10/13/15)bacitracin (Mild, Itching 10/13/15)cortisone (Mild, Itching 10/13/15)red (food color) (Mild, Rash 10/13/15)tramadol (Mild, Itching 10/13/15)fluoxetine (unknown 10/13/15)neomycin (unknown 10/13/15)polymyxin B (unknown 10/13/15) Review of SystemsConstitutionalReports: Pain, Fever, Generalized weakness, Malaise, Fatigue, Weight loss. SkinReports: bruising, ecchymosis. EyesReports: redness. Denies: discharge, visual loss/blurred, itching, diplopia. ENTDenies: earache, nasal congestion, sore throat, rhinorrhea, nose bleeding. RespiratoryReports: dyspnea, productive cough, wheezing. CardiovascularReports: dyspnea on exertion, orthopnea. Denies: chest pain, edema, palpitations, PND. GastrointestinalDenies: nausea, vomiting, abdominal pain, diarrhea, constipation, melena. GenitourinaryDenies: dysuria, flank pain, frequency, hematuria, nocturia. MusculoskeletalReports: arthritis, lumbar pain, myalgias, neck pain. HematologyReports: bruising, petechiae. Denies: adenopathy, bleeding. EndocrineReports: diabetic. Denies: cold intolerance, heat intolerance. NeurologicalDenies: bladder dysfunction, bowel dysfunction, change in LOC, confusion, dizziness. PsychReports: confusion, depression, stress. Denies: agitation, anxiety, homocidal ideation, hostile, visual hallucination, insomnia. Additional notesThe ROS may be inconsistent due to patient's difficulty with recallUnable to obtainThe reviewed 12 systems were otherwise negative unless mentioned above ExamVital SignsVital Signs 05/16 2051 Temp 99.1 Pulse 96 Resp 16 B/P 139/73 B/P Mean Pulse Ox 97 O2 Delivery O2 Flow Rate FiO2 Physical ExaminationEENT PERRL/EOMI, normal ENT inspectionNeck normal inspection, non-tender, supple, full range of motionRespiratory Rchonchi and rales over both upper and lower lobe on the rightCardiovascular regular rate/rhythm, no edema, no gallop, no JVD, no murmurGastrointestinal normal bowel sounds, non tender, soft, no organomegaly, no pulsatile massBack Exam normal inspection, no CVA tenderness, no vertebral tendernessExtremities non-tender, normal range of motion, normal inspection, normal capillary refill, no calf tendernessNeurologic/Psychiatric alert, child monitor II-XII nml as tested, normal mood/affect, no motor/sensory deficits, oriented x 3Skin normal color, warm/dryLymphatic no adenopathyOther:ATE OF EXAMINATION: 05/14/2020 11:08 EDT CHEST W/O IV CONTRAST HISTORY: No history provided TECHNIQUE: This CT exam was performed using the following dose reduction techniques:automatic exposure control, adjustment of mA and/or kV according to thepatient's size, and use of iterative reconstruction technique. Standard contiguous axial spiral imaging was obtained from lung apices to thelung bases without intravenous contrast administration and with coronalreformatting. COMPARISON: 05/10/2020 FINDINGS: Lungs: Parenchymal densities are present in the right upper and lower lobesconsistent with infiltrates that are unchanged compared to the previous study.There are new parenchymal densities in the left lower lobe consistent withatelectasis or infiltrate.Pleural space: There is no pleural effusion.Mediastinum: Several lymph nodes measuring up to 1.4 cm in size are present inthe mediastinum.Heart: The heart is normal in size. A very small pericardial effusion ispresent.Aorta: Atherosclerotic calcification is present in the aorta. There is noaneurysm. A small hiatal hernia is present. Bones/joints: Degenerative change is present in the spine. Calcifications are present in the liver and spleen. IMPRESSION: 1. Right upper and lower lobe infiltrates unchanged compared to the previousstudy.2. There are parenchymal densities in the left lower lobe consistent withatelectasis or infiltrate.3. Very small pericardial effusion.4. Small hiatal hernia. Assessment/PlanProblem List 1. Right upper lobe pneumonia A&PRight Upper Lobe and Right lower lobe pneumonia in a 74 year old severely debil;itated female with a long standing COPD and history of MRSA pneumonia 4 years ago.Obtain sputum analysis and MRSA screenAs Mrs Ponce has very difficult IV access will refer for PICC line - placement 2. COPD (chronic obstructive pulmonary disease) A&POxygen dependent, on chronic steroid at home. Less of a wheezing presentation; thick green sputum present.Continue neb treatments .Will not increase steroid as the patient is more affected by mucus and sputum production then bronchospasm Qualifiers COPD type: COPD with acute lower respiratory infection Qualified Code: J44.0 - Chronic obstructive pulmonary disease with (acute) lower respiratory infection 3. Spinal stenosis of lumbar region A&PChronic pain with years history of heavy opiate prescription use. Qualifiers Neurogenic claudication status: unspecified Qualified Code: M48.061 - Spinal stenosis, lumbar region without neurogenic claudication 4. Depression A&PContinue Cymbalta 60 mg p[o daily 5. Hypercholesterolemia A&PStatin to be continued. 6. Diabetes mellitus type 2 with complications, uncontrolled A&PContinue ADA diet and insulin lantus and sliding scale of aspart 7. Nicotine addiction A&PVery heavy (2 pcks p[er day) smoker 8. Anxiety A&PSevere anxiety. On Duloxetine 60 mg po daily Added Buspar 5 mg po bid. Patient was relying heavily on benzodiazepines. Would not D/C abruptly to avoid withdrawal. 9. Debility A&PVery significant deconditioning. Referred to physical therapy 10. Hypothyroidism A&PcONTINUE PATTEN-PPLEMENTATION Qualifiers Hypothyroidism type: acquired Qualified Code: E03.9 - Hypothyroidism, unspecified 11. Chronic kidney disease, stage III (moderate) A&PContinue monitoring renal function. Avoid NSAIDS Avoid dehydration 12. Peripheral vascular disease A&PHx of stent placement in both lower extremities. 13. Hypoalbuminemia A&PContinue supplementation DIET Consistent Carb. 60gActivity OOB ad libPatient Condition StableResuscitation Status FULL CODEPlan discussed with , significant otherCase discussed with case management specialist, nursing staffCopies toFamily Provider: Smoking Cessation Counseling* I have counseled the patient on the dangers of tobacco use for more] than 3 minutes.* The patient was advised to quit tobacco use. I reviewed the various strategiesof quitting with the patient. VTE ProphylaxisVTE Prophylaxis: Heparin SC * Decisions reached: [ ]. VTE ProphylaxisVTE Prophylaxis: Heparin SC ADDENDUM: 05/17/20 0028 ADDENDUM: Zhanna Holcomb on 05/17/20 at 0025 Correction to PLAN DISCUSSED- errorPlan discussed with patient's Son over the phone, not a or significant other. Software related error. Name Value Range Interpretation Code Description Data Rosa rce(s) Supporting Document(s) ID Date Data Source [id number] 05/17/2020 12:22:00 AM EDT [facility] Summary of HospitalizationHospital Cour seChief Complaint/Admit ReasonRight upper and right lower lobe pneumoniaExtreme deconditioningUnsteady GaitFrequent FallsHistory of Presenting IllnessMrsam Ponce is a 74 year old female with history of significant COPD and heavy tobacco use for over 60 years, oxygen dependent, patient of Dr Erickson, history ofchronic lower back pain related to severe and well documented by CT LS spine pathology (grade 2 anterolithesis of L4 on L5, moderate to severe degenerative changes in the facet joints. 2. No fractures. 3. Severe central canal stenosis L2-L3, moderate to severe central spinal stenosis L3-L4, and severe central spinal stenosis L4- L5 4. Bulging annulus L5-S1 with bilateral facet joint arthroplasty), Perip[heral Artery Disease with hx of stents in lower extremities, Diabetes Mellitus, Chronic Kidney Disease, Drepression, Anxiety and history of occassional nonadherence to diet and medications who presented to emergency department of [facility] on 05/10/2020 with generalized malaise, severe weakness, cough and intractable back pain. She was found to have leucocytosis of18.2 and right upper and right lower lobe pneumonia with mediastinal lymphadenopathy. Of note Mrs Ponce was seen a day before her arrival here at [facility] and was discharged home with Cefdinir and Zithromax prescription.She was admitted to acute care floor for treatment of right sided pneumonia of both upper and lower lobe.Mrs Ponce has quite severe COPD and she is on chronic Prednisone and oxygen at home.She has productive cough with a thick green sputum. She was on inhaled steroids at home. As a chronic COPD patient she may have significant bacterial colonization so common in COPD patients especially with hx of bronchiectases. She is transitioned to swing bed status admission for further treatment of her pneumonia with IV antibiotics. I did have a phone conference with Mrs Ponce's Son who is also her health care proxy. He did agree his Mother is unsafe to be discharged home a s her respiratory status is compromised and she does not have mental capacity to manage her medications while ill with a pneumonia. He also stated her oral intake is very diminished and she does not adhere to her diabetes diet and medications. The patient also tends to have rather liberal approachto pain medications and then ends up groggy and sedated.We did obtain PTevaluation as Mrs Ponce's gait is unsteady and poses risk of falling and injury.After extensive research of infectious history we did discover she had MRSA pneumonia in 2016. Will obtain MRSA screen and sputum and add Vancomycin unless proven negative. Past Medical/Surgical HistoryPast Medical/Surgical HistoryMedical Problems Abnormal CBC Abnormal chest CT Abnormal urinalysis Acute exacerbation of chronic low back pain Ambulatory dysfunction Anemia Anorexia Anxiety Chronic kidney disease, stage III (moderate) Chronic pain Community acquired pneumonia COPD (chronic obstructive pulmonary disease) COPD exacerbation Debility Dehydration Depression Diabetes mellitus type 2 with complications, uncontrolled Fracture of toe of left foot Full code status Generalized weakness History of falling History of renal artery stenosis Hypercholesterolemia Hypertension Hypoalbuminemia Hypochloremia Hyponatremia Hypothyroidism Hypoxia Leukocytosis Memory loss Nicotine addiction Noncompliance w/medication treatment due to intermit use of medication Normocytic anemia Peripheral vascular disease Pneumonia due to methicillin resistant Staphylococcus aureus Prerenal azotemia Proteinuria Right lower lobe pneumonia Right upper lobe pneumonia Spinal stenosis of lumbar region Vitamin D deficiency Reconciled Home Med ListSee Reconciled Home Medication List AllergiesCoded Allergies:Sulfa (Sulfonamide Antibiotics) (Mild, Itching, rash 10/13/15)bacitracin (Mild, Itching 10/13/15)cortisone (Mild, Itching 10/13/15)red (food color) (Mild, Rash 10/13/15)tramadol (Mild, Itching 10/13/15)fluoxetine (unknown 10/13/15)neomycin (unknown 10/13/15)polymyxin B (unknown 10/13/15) Review of SystemsConstitutionalReports: Pain, Fever, Generalized weakness, Malaise, Fatigue, Weight loss. SkinReports: bruising, ecchymosis. EyesReports: redness. Denies: discharge, visual loss/blurred, itching, diplopia. ENTDenies: earache, nasal congestion, sore throat, rhinorrhea, nose bleeding. RespiratoryReports: dyspnea, productive cough, wheezing. CardiovascularReports: dyspnea on exertion, orthopnea. Denies: chest pain, edema, palpitations, PND. GastrointestinalDenies: nausea, vomiting, abdominal pain, diarrhea, constipation, melena. GenitourinaryDenies: dysuria, flank pain, frequency, hematuria, nocturia. MusculoskeletalReports: arthritis, lumbar pain, myalgias, neck pain. HematologyReports: bruising, petechiae. Denies: adenopathy, bleeding. EndocrineReports: diabetic. Denies: cold intolerance, heat intolerance. NeurologicalDenies: bladder dysfunction, bowel dysfunction, change in LOC, confusion, dizziness. PsychReports: confusion, depression, stress. Denies: agitation, anxiety, homocidal ideation, hostile, visual hallucination, insomnia. Additional notesThe ROS may be inconsistent due to patient's difficulty with recallUnable to obtainThe reviewed 12 systems were otherwise negative unless mentioned above ExamVital SignsVital Signs 05/16 2050 Temp 99.1 Pulse 96 Resp 16 B/P 139/73 B/P Mean Pulse Ox 97 O2 Delivery O2 Flow Rate FiO2 Physical ExaminationEENT PERRL/EOMI, normal ENT inspectionNeck normal inspection, non-tender, supple, full range of motionRespiratory Rchonchi and rales over both upper and lower lobe on the rightCardiovascular regular rate/rhythm, no edema, no gallop, no JVD, no murmurGastrointestinal normal bowel sounds, non tender, soft, no organomegaly, no pulsatile massBack Exam normal inspection, no CVA tenderness, no vertebral tendernessExtremities non-tender, normal range of motion, normal inspection, normal capillary refill, no calf tendernessNeurologic/Psychiatric alert, child monitor II- XII nml as tested, normal mood/affect, no motor/sensory deficits, oriented x 3Skin normal color, warm/dryLymphatic no adenopathyOther:ATE OF EXAMINATION: 05/14/2020 11:08 EDT CHEST W/O IV CONTRAST HISTORY: No history provided TECHNIQUE: This CT exam was performed using the following dose reduction techniques:automatic exposure control, adjustment of mA and/or kV according to thepatient's size, and use of iterative reconstruction technique. Standard contiguous axial spiral imaging was obtained from lung apices to thelung bases without intravenous contrast administration and with coronalreformatting. COMPARISON: 05/10/2020 FINDINGS: Lungs: Parenchymal densities are present in the right upper and lower lobesconsistent with infiltrates that are unchanged compared to the previous study.There are new parenchymal densities in the left lower lobe consistent withatelectasis or infiltrate.Pleural space: There is no p leural effusion.Mediastinum: Several lymph nodes measuring up to 1.4 cm in size are present inthe mediastinum.Heart: The heart is normal in size. A very small pericardial effusion ispresent.Aorta: Atherosclerotic calcification is present in the aorta. There is noaneurysm. A small hiatal hernia is present. Bones/joints: Degenerative change is present in the spine. Calcifications are present in the liver and spleen. IMPRESSION: 1. Right upper and lower lobe infiltrates unchanged compared to the previousstudy.2. There are parenchymal densities in the left lower lobe consistent withatelectasis or infiltrate.3. Very small pericardial effusion.4. Small hiatal hernia. Assessment/PlanProblem List 1. Right upper lobe pneumonia A&PRight Upper Lobe and Right lower lobe pneumonia in a 74 year old severely debil;itated female with a long standing COPD and history of MRSA pneumonia 4 years ago.Obtain sputum analysis and MRSA screenAs Mrs Ponce has very difficult IV access will refer for PICC line -plac ement 2. COPD (chronic obstructive pulmonary disease) A&POxygen dependent, on chronic steroid at home. Less of a wheezing presentation; thick green sputum present.Continue neb treatments .Will not increase steroid as the patient is more affected by mucus and sputum production then bronchospasm Qualifiers COPD type: COPD with acute lower respiratory infection Qualified Code: J44.0 - Chronic obstructive pulmonary disease with (acute) lower respiratory infection 3. Spinal stenosis of lumbar region A&PChronic pain with years history of heavy opiate prescription use. Qualifiers Neurogenic claudication status: unspecified Qualified Code: M48.061 - Spinal stenosis, lumbar region without neurogenic claudication 4. Depression A&PContinue Cymbalta 60 mg p[o daily 5. Hypercholesterolemia A&PStatin to be continued. 6. Diabetes mellitus type 2 with complications, uncontrolled A&PContinue ADA diet and insulin lantus and sliding scale of aspart 7. Nicotine addiction A&PVery heavy (2 pcks p[er day) smoker 8. Anxiety A&PSevere anxiety. On Duloxetine 60 mg po daily Added Buspar 5 mg po bid. Patient was relying heavily on benzodiazepines. Would not D/C abruptly to avoid withdrawal. 9. Debility A&PVery significant deconditioning. Referred to physical therapy 10. Hypothyroidism A&PcONTINUE PATTEN-PPLEMENTATION Qualifiers Hypothyroidism type: acquired Qualified Code: E03.9 - Hypothyroidism, unspecified 11. Chronic kidney disease, stage III (moderate) A&PContinue monitoring renal function. Avoid NSAIDS Avoid dehydration 12. Peripheral vascular disease A&PHx of stent placement in both lower extremities. 13. Hypoalbuminemia A&PContinue supplementation DIET Consistent Carb. 60gActivity OOB ad libPatient Condition StableResuscitation Status FULL CODEPlan discussed with , significant otherCase discussed with case management specialist, nursing staffCopies toFamily Provider: VTE ProphylaxisVTE Prophylaxis: Heparin SC Patient/Family InstructionsPrescriptionsStop taking the following medications:SERTRALINE HCL (Zoloft) 100 MG TABLET 100 MILLIGRAM ORAL Twice Daily Metformin Hydrochloride (Metformin HCl) 500 MG TABLET 1,000 MILLIGRAM ORAL Twice Daily Atorvastatin Calcium (Lipitor) 20 MG TABLET 20 MILLIGRAM ORAL Daily Ferrous Sulfate (IRON) 325 MG TABLET 325 MILLIGRAM ORAL Daily CHOLECALCIFEROL (VITAMIN D3) (Vitamin D) 5,000 UNIT TABLET 5,000 IU ORAL Daily [ADVAIR] Unknown Lisinopril* (Lisinopril*) 5 MG TABLET 5 MILLIGRAM ORAL Twice Daily Docusate Sodium (Colace) 100 MG CAPSULE 100 MILLIGRAM ORAL Twice Daily Albuterol Sulfate (Albuterol Sulfate 3 Ml) 2.5 MG/3 ML VIAL.NEB 3 MILLILITER INHALATION Q2 as needed for SHORTNESSS OF BREATH Heparin Sodium,Porcine/Pf (Heparin Sod 5,000 Unit/ 0.5 Ml) 5,000 UNIT/0.5 ML VIAL 5,000 UNIT SUB-Q Daily Gabapentin* (Neurontin*) 300 MG CAPSULE 300 MILLIGRAM ORAL Twice Daily Melatonin (Melatonin) 5 MG TABLET 5 MILLIGRAM ORAL At Bedtime Heparin Sodium,Porcine/Pf (Heparin 300 Unit/3 Ml (100/Ml)) 300 UNIT/3 ML SYRINGE 300 UNIT INTRAVEN as needed for PICC Guaifenesin* (guaiFENesin ER*) 600 MG TAB.ER.12H 600 MILLIGRAM ORAL Twice Daily Atenolol* (Atenolol*) 50 MG TABLET 100 MILLIGRAM ORAL Daily Insulin Aspart, Recombinant (Novolog) 100 UNIT/1 ML VIAL 3 UNIT SUBCUTANEOUSLY Before Meals Insulin Glargine, Recombinan* (Lantus*) 100 UNIT/1 ML VIAL 12 Unit SUBCUTANEOUSLY At Bedtime Atenolol* (Atenolol*) 50 MG TABLET 100 MILLIGRAM ORAL Daily Qty = 30 Lisinopril* (Lisinopril*) 10 MG TABLET 10 MILLIGRAM ORAL Twice Daily Qty = 60 Gabapentin* (Neurontin*) 300 MG CAPSULE 600 MILLIGRAM ORAL Twice Daily Qty = 60 Hydrochlorothiazide* (Hydrochlorothiazide*) 25 MG TABLET 12.5 MILLIGRAM ORAL Daily Qty = 30 Insulin Glargine, Recombinan* (Lantus*) 100 UNIT/1 ML VIAL 14 UNIT SUBCUTANEOUSLY At Bedtime Qty = 420 Activity: Return to usual activityDiet: Sodium RestrictedTime spent by provider to complete discharge > 30 minutes Name Value Range Interpretation Code Description Data [facility] rce(s) Supporting Document(s) ID Date Data Source [id number] 05/16/2020 07:46:00 AM [facility] Name Value Range Interpretation Code Description Data [facility] rce(s) Supporting Document(s) ERYTHROCYTE SEDIMENTATION RATE 28 mm/hr 0-30 [facility] ID Date Data Source [id number] 05/16/2020 06:49:00 AM [facility] Name Value Range Interpretation Code Description Data [facility] rce(s) Supporting Document(s) WHITE BLOOD COUNT 13.3 K/mm3 4.0-10.0 H [facility] jer RED BLOOD COUNT 3.60 M/mm3 4.00-5.50 L [facility] HEMOGLOBIN 10.9 gm/dL 12.0-16.0 L [facility] HEMATOCRIT 32.5 % 36.0-48.8 L [facility] MEAN CELL VOLUME 90.3 fl 80-96 [facility] MEAN CORPUSCULAR HEMOGLOBIN 30.3 pg 27.0-31.0 [facility] MEAN CORPUSCULAR HGB CONC 33.5 g/dl 32.0-36.0 [facility] RED CELL DISTRIBUTION WIDTH 14.7 % 10.0-14.5 H [facility] PLATELET COUNT 174 K/mm3 172-450 [facility] MEAN PLATELET VOLUME 10.0 fl 9.0-13.0 [facility] pital GRAN % 93.2 % 50-80.0 H [facility] IG% 1.4 % 0.0-0.2 H [facility] LYMPH % 2.4 % 25.0-50.0 *L [facility] MONO % 3.0 % 2.0-10.0 [facility] EOS % 0.0 % 0-5.0 [facility] BASO % 0.0 % 0.0-2.0 [facility] GRAN # 12.4 K/mm3 2.0-8.00 H [facility] IG# 0.2 K/mm3 0.0-0.2 [facility] LYMPH # 0.3 K/mm3 1.0-5.0 L [facility] MONO # 0.4 K/mm3 0.10-1.20 [facility] EOS # 0.0 K/mm3 0.0-0.5 [facility] BASO # 0.0 K/mm3 0.0-0.2 [facility] ID Date Data Source [id number] 05/16/2020 07:12:00 AM [facility]T [facility] Name Value Range Interpretation Code Description Data Rosa rce(s) Supporting Document(s) GLUCOSE 323 mg/dL 74-106 H [facility] BLOOD UREA NITROGEN 24 mg/dL 7-18 H [facility] ital CREATININE 1.12 mg/dL 0.6-1.0 H [facility] SODIUM 136 mmol/L 136-145 [facility] POTASSIUM 5.3 mmol/L 3.5-5.1 H [facility] CHLORIDE 99 mmol/L 98-107 [facility] CO2 29 mmol/L 21-32 [facility] CALCIUM 9.1 mg/dL 8.5-10.1 [facility] ANION GAP 8.0 mmol/L 5-12 [facility] GLOMERULAR FILTRATION RATE 48 mL/min [facility] GFR IS CALCULATED IN mL/min/1.73m2 STEVENSON L FUNCTION: >90MILDLY DECREASED: 60-89MILDY TO MODERATELY DECREASED: 45-59 MODERATELY TO SEVERELY DECREASED: 30-44SEVERELY DECREASED: 15-29RENAL FAILURE: <15 AST 28 U/L 15-37 [facility] ALT 41 U/L 12-78 [facility] ALKALINE PHOSPHATASE 107 U/L 46-116 [facility] pital TOTAL BILIRUBIN 0.3 mg/dL 0.2-1.0 [facility] TOTAL PROTEIN 5.9 g/dl 6.4-8.2 [facility] ALBUMIN 2.7 gm/dL 3.4-5.0 [facility] ID Date Data Source [id number] 05/15/2020 03:58:00 PM EDT [facility] Progress Note GeneralEncounter:Chart re viewed. Patient interviewed and examined. Labs, medications and orders viewed by me. SubjectiveGeneral Condition:Mrs Ponce feels better today. Her pain is slightly better controlled.She admits to having difficulty handling her affairs at home as her state of health is declining. She agrees with staying here for a longer time in order to resolve her pneumonia and to improve her mobility. I did talk to Mrs Tian's son today. He agrees with the -plan as he also thought his Mother needed medicalintervention to disrupt her recent downward trend.Mrs Ponce is still having productive cough. Her pneumonia is not improving. There is a possibility of a resistant organism involved as it frequently happenws in patients with severe COPD. ObjectiveNote:Temp; 99.4, Pulse; 97, Resp: 22, B/P: 146/78 SaO2: 98, O2 Status: 2 L of oxygen EENT PERRL/EOMI, normal ENT inspectionNeck normal inspection, non-tender, suppleRespiratory chest non- tender, RUL and RLL with rhonchi and ralesCardiovascular regular rate/rhythm, no edema, no gallop, no JVDGastrointestinal normal bowel sounds, non tender, soft, no organomegaly, no pulsatile massBack normal inspection, no CVA tendern essExtremities non-tender, normal range of motion, normal inspection, normal capillary refill, no calf tendernessNeurologic/Psychiatric alert, child monitor II-XII nml as tested, normal mood/affect, no motor/sensory deficits, oriented x 3Skin normal color, warm/dryLymphatic no adenopathyOther:Laboratory Tests 05/14 0540 Chemistry Sodium (136 - 145 mmol/L) 137 Potassium (3.5 - 5.1 mmol/L) 5.5 H Chloride (98 - 107 mmol/L) 102 Carbon Dioxide (21 - 32 mmol/L) 27 Anion Gap (5 - 12 mmol/L) 8.0 BUN (7 - 18 mg/dL) 30 H Creatinine (0.6 - 1.0 mg/dL) 1.16 H Estimated GFR (MDRD) (mL/min) 46 Glucose (74 - 106 mg/dL) 229 H Calcium (8.5 - 10.1 mg/dL) 8.7 Total Bilirubin (0.2 - 1.0 mg/dL) 0.3 AST (15 - 37 U/L) 26 ALT (12 - 78 U/L) 35 Alkaline Phosphatase (46 - 116 U/L) 100 Total Protein (6.4 - 8.2 g/dl) 5.8 L Albumin (3.4 - 5.0 gm/dL) 2.9 L Hematology WBC (4.0 - 10.0 K/mm3) 12.6 H RBC (4.00 - 5.50 M/mm3) 3.72 L Hgb (12.0 - 16.0 gm/dL) 11.3 L Hct (36.0 - 48.8 %) 33.2 L MCV (80 - 96 fl) 89.2 MCH (27.0 - 31.0 pg) 30.4 MCHC Differential (32.0 - 36.0 g/dl) 34.0 RDW (10.0 - 14.5 %) 14.7 H Plt Count (172 - 450 K/mm3) 164 L MPV (9.0 - 13.0 fl) 9.4 Gran % (Auto) (50 - 80.0 %) 94.0 H Gran # (2.0 - 8.00 K/mm3) 11.8 H Immature Gran % (0.0 - 0.2 %) 1.1 H Lymphocytes % (25.0 - 50.0 %) 2.7 *L Monocytes % (2.0 - 10.0 %) 2.1 Eosinophils % (0 - 5.0 %) 0.0 Basophils % (0.0 - 2.0 %) 0.1 Immature Gran # (0.0 - 0.2 K/mm3) 0.1 Lymphocytes # (1.0 - 5.0 K/mm3) 0.3 L Monocytes # (0.10 - 1.20 K/mm3) 0.3 Eosinophils # (0.0 - 0.5 K/mm3) 0.0 Basophils # (0.0 - 0.2 K/mm3) 0.0 Current MedicationsAcetaminophen 975 MG BID PO Acetaminophen 650 MG Q4H PRN PO pain, fever and/or headache Albuterol Sulfate 2.5 MG Q4H PRN IH she breath/wheezing Albuterol/Ipratropium 3 ML Q6H.RT IH Aluminum Hydroxide 30 ML Q4H PRN PO INDIGESTION Amlodipine Besylate 10 MG DAILY PO Atorvastatin Calcium 40 MG HS PO Ceftriaxone Sodium 2 GM DAILY IVPB (CAN) Sodium Chloride 100 MLCeftriaxone Sodium 2 GM Q24H IVPB Clopidogrel Bisulfate 75 MG DAILY PO Duloxetine HCl 60 MG HS PO Famotidine 20 MG BID PO Heparin Sodium 5,000 UNIT BID SC Hydralazine HCl 50 MG BID PO Insulin Glargine 20 U HS SC Insulin Human Regular MODERATE DOSE - Sliding Scale < 60 MG/DL * Follow Hypoglycemic Protocol 61 - 150 No COVERAGE 151 - 180 2 UNITS 181 - 240 4 UNITS 241 - 300 6 UNITS 301 - 350 8 UNITS 351 - 400 10 UNITS > 400 Serum Glucose, Notify Provider ACHS SC Levofloxacin 150 ML Q24H IVPB Levothyroxine Sodium 75 MCG DAILY 0700 PO Nicotine 1 PATCH DAILY TD Nutritional Formula (Lactose Free) 1 CAP BID PO Oxycodone HCl 10 MG BID PO Oxycodone HCl 5 MG Q6H PRN PO moderate to severe pain Prednisone 20 MG BID PO Vital Signs 05/13 05/13 05/14 05/14 05/14 1900 2301 0312 0630 1052 Temp 98.2 97.4 97.3 98.3 98.9 Pulse 87 90 82 90 105 Resp 20 20 16 18 20 B/P 149/83 149/73 152/78 180/86 153/84 B/P Mean Pulse Ox 98 98 96 96 96 O2 Delivery O2 Flow Rate FiO2 Assessment/PlanAllergiesCoded Allergies:Sulfa (Sulfonamide Antibiotics) (Mild, Itching, rash 10/13/15)bacitracin (Mild, Itching 10/13/15)cortisone (Mild, Itching 10/13/15)red (food color) (Mild, Rash 10/13/15)tramadol (Mild, Itching 10/13/15)fluoxetine (unknown 10/13/15)neomycin (unknown 10/13/15)polymyxin B (unknown 10/13/15) Additional NotesProblem List 1. Community acquired pneumonia A&PContinue Ceftriaxone and Azithromycin. Continue nebulizer treatments. oxygen andincentive spirometer. Considering further broadening the spectrum of antibbiotics if no improvement. 2. COPD exacerbation A&PSevere COPD in a chronic and relentless smoker of 2 pcks a day. Oxygen dependent 3. Leukocytosis A&PContinue to follow daily 4. Dehydration A&PResolved 5. Chronic kidney disease, stage III (moderate) A&PAvoid NSAID Continue sufficent hydration. Continue to follow parameters 6. Normocytic anemia 7. Diabetes mellitus type 2 with complications, uncontrolled A&PUncontrolled DM due to nonadherence. Continue Lantus insulin and sliding scale as well as consistent carb diet 8. Acute exacerbation of chronic low back pain A&PContinue pain control within margin of safety. 9. Spinal stenosis of lumbar region A& amp;PUnlikely surgical candidate due to tobacco use and nonadherence 10. Ambulatory dysfunction A&PSevere and in need of in house PT to improve functional mobility 11. Generalized weakness A&PMultofactorial- poor nutrition plus inactivity plus chronic disease issue. 12. History of falling A&PRelated to deconditioning and possibly high doses of opiates 13. Proteinuria A&PCKD. Continue to follow 14. Anorexia A&PImproving 15. Hypoalbuminemia A&PWill continue supplementation 16. Hypertension A&PImproving 17. Hypercholesterolemia 18. Peripheral vascular disease A&PAtherosclerosis that is disseminated and affects peripheral arteries as well; ascoronary arteries 19. Hypothyroidism A&PContinue supplementation 20. Depression A&PContinue Cymbalta 21. Anxiety A&PSevere anxiety - continue Duloxetine and PRN benzodiazepine if necessary 22. History of renal artery stenosis A&PHistory of partial right nephrectomy Continue monitoring renal function 23. Abnormal chest CT A&PMediastinal lymphadenopathy, Need further follow up.Mrs Ponce is being seen byDr Erickson 24. Memory loss 25. Noncompliance w/medication treatment due to intermit use of medication A&PMrs Kris will need more structured home based services after 26. Nicotine addiction A&PContinue Nicotine Patch 21 mg . Smoking Cessation Counseling* I have counseled the patient on the dangers of tobacco use for more] than 3 minutes.* The patient was advised to quit tobacco use. I reviewed the various strategiesof quitting with the patient. VTE ProphylaxisVTE Prophylaxis: Heparin SC Name Value Range Interpretation Code Description Data Rosa rce(s) Supporting Document(s) ID Date Data Source [id number] 05/15/2020 12:05:00 PM EDT [facility] Progress Note GeneralEncounter:Chart re viewed. Patient interviewed and examined. Labs, medications and orders viewed by me. SubjectiveGeneral Condition:Mrs Ponce is a very pleasant 74 year old female admitted for treatment of pneumonia. She is a severe COPD patient with chronic oxygen at home AND a heavy smoker. She does have significant pneumonia involving right upper and right lower lobe.She does have productive cough. She was started on ceftriaxome amd Zithromax. She is very weak and her mnobility is very much impaired due to inactivity. She does have chronic pain and she uses quite a heft y doses of pain medications for that. Upon the beginning of my rotations Kris announced shewas living as we do not address her pain. She was started by my colleaguae on Oxycodone 5 mg po bid.As she was taking doses of 20 mg po bid I did order 10 mg po BID for now.She is very unsteady and in no shape to be discharged as she is unable to ambulate safely.She contionues having productive cough. She is a heavy smoker despite being on oxygen.She is on Nicotine patch.Her appetite is not very impressive.She denies any chest pain or chest pressure She admits to having productive cough.She denies any GI or symptoms. She does complain of severe back pain. She admits to feel and appears anxious. ObjectiveNote:Temp; 97.0, Pulse; 101, Resp: 16, B/P: 152/87 SaO2: 99, O2 Status: EENT PERRL/EOMI, normal ENT inspection, TMs normal, pharynx normalRespiratory Rhonchi and rales over tthe right upper and lower lobe. Endexpitratory wheezes bilaterallyCardiovascular regular rate/rhythm, no edema, no gallop, no JVD, no murmur, normal peripheral pulsesGastrointestinal normal bowel sounds, non tender, soft, no organomegaly, no pulsatile massBack normal inspection, no CVA tenderness, no vertebral tendernessExtremities non-tender, normal range of motion, normal inspection, normal capillary refill, no calf tenderness, no pedal edemaNeurologic/Psychiatric alert, child monitor II-XII nml as tested, normal mood/affect, no motor/sensory deficits, oriented x 3Skin normal color, warm/dryLymphatic no adenopathyOther:Laboratory Tests 05/13 0545 Chemistry Sodium (136 - 145 mmol/L) 141 Potassium (3.5 - 5.1 mmol/L) 5.7 H Chloride (98 - 107 mmol/L) 105 Carbon Dioxide (21 - 32 mmol/L) 27 Anion Gap (5 - 12 mmol/L) 9.0 BUN (7 - 18 mg/dL) 37 H Creatinine (0.6 - 1.0 mg/dL) 1.20 H Estimated GFR (MDRD) (mL/min) 44 Glucose (74 - 106 mg/dL) 169 H Calcium (8.5 - 10.1 mg/dL) 8.8 Total Bilirubin (0.2 - 1.0 mg/dL) 0.2 AST (15 - 37 U/L) 25 ALT (12 - 78 U/L) 33 Alkaline Phosphatase (46 - 116 U/L) 93 Total Protein (6.4 - 8.2 g/dl) 5.5 L Albumin (3.4 - 5.0 gm/dL) 2.6 L Hematology WBC (4.0 - 10.0 K/mm3) 11.6 H RBC (4.00 - 5.50 M/mm3) 3.56 L Hgb (12.0 - 16.0 gm/dL) 11.0 L Hct (36.0 - 48.8 %) 32.4 L MCV (80 - 96 fl) 91.0 MCH (27.0 - 31.0 pg) 30.9 MCHC Differential (32.0 - 36.0 g/dl) 34.0 RDW (10.0 - 14.5 %) 14.9 H Plt Count (172 - 450 K/mm3) 159 L MPV (9.0 - 13.0 fl) 9.8 Gran % (Auto) (50 - 80.0 %) 86.4 H Gran # (2.0 - 8.00 K/mm3) 10.0 H Immature Gran % (0.0 - 0.2 %) 0.8 H Lymphocytes % (25.0 - 50.0 %) 6.4 L Monocytes % (2.0 - 10.0 %) 6.1 Eosinophils % (0 - 5.0 %) 0.2 Basophils % (0.0 - 2.0 %) 0.1 Immature Gran # (0.0 - 0.2 K/mm3) 0.1 Lymphocytes # (1.0 - 5.0 K/mm3) 0.7 L Monocytes # (0.10 - 1.20 K/mm3) 0.7 Eosinophils # (0.0 - 0.5 K/mm3) 0.0 Basophils # (0.0 - 0.2 K/mm3) 0.0 Current MedicationsAcetaminophen 975 MG BID PO Acetaminophen 650 MG Q4H PRN PO pain, fever and/or headache Albuterol Sulfate 2.5 MG Q4H PRN IH she breath/wheezing Albuterol/Ipratropium 3 ML Q6H.RT IH Alprazolam 1 MG QD PRN PO anxiety/agitation Aluminum Hydroxide 30 ML Q4H PRN PO INDIGESTION Amlodipine Besylate 10 MG DAILY PO Atorvastatin Calcium 40 MG HS PO Azithromycin 500 MG DAILY PO Ceftriaxone Sodium 1 GM Q24H IVPB Sodium Chloride 100 MLClopidogrel Bisulfate 75 MG DAILY PO Duloxetine HCl 60 MG HS PO Famotidine 20 MG BID PO Heparin Sodium 5,000 UNIT BID SC Hydralazine HCl 50 MG BID PO Insulin Glargine 20 U HS SC Insulin Human Regular MODERATE DOSE - Sliding Scale < 60 MG/DL * Follow Hypoglycemic Protocol 61 - 150 No COVERAGE 151 - 180 2 UNITS 181 - 240 4 UNITS 241 - 300 6 UNITS 301 - 350 8 UNITS 351 - 400 10 UNITS > 400 Serum Glucose, Notify Provider ACHS SC Levothyroxine Sodium 75 MCG DAILY 0700 PO Lisinopril 20 MG BID PO Nicotine 1 PATCH DAILY TD Nutritional Formula (Lactose Free) 1 CAP BID PO Oxycodone HCl 5 MG Q6H PRN PO moderate to severe pain Prednisone 20 MG BID PO Vital Signs 05/12 05/12 05/12 05/13 04 1530 1900 2352 0315 0645 Temp 98.0 97.8 98.3 98.6 98.2 Pulse 98 92 94 87 87 Resp 18 16 18 14 18 B/P 109/58 142/72 143/70 139/65 166/79 B/P Mean Pulse Ox 96 98 97 99 97 O2 Delivery O2 Flow Rate FiO2 04/03 1030 Temp 97.3 Pulse 91 Resp 20 B/P 176/75 B/P Mean Pulse Ox 98 O2 Delivery O2 Flow Rate FiO2 Assessment/PlanAllergiesCoded Allergies:Sulfa (Sulfonamide Antibiotics) (Mild, Itching, rash 10/13/15)bacitracin (Mild, Itching 10/13/15)cortisone (Mild, Itching 10/13/15)red (food color) (Mild, Rash 10/13/15)tramadol (Mild, Itching 10/13/15)fluoxetine (unknown 10/13/15)neomycin (unknown 10/13/15)polymyxin B (unknown 10/13/15) Problem List 1. Community acquired pneumonia A&PContinue Ceftriaxone and Azithromycin.Added CRP. Continue nebulizer treatments. oxygen and incentive spirometer 2. COPD exacerbation A&PSevere COPD in a chronic and relentless smoker Oxygen dependent 3. Leukocytosis A&PContinue to follow 4. Dehydration A&PResolving 5. Chronic kidney disease, stage III (moderate) A&PAvoid NSAID Continue sufficent hydrationContinue to follow parameters 6. Normocytic anemia 7. Diabetes mellitus type 2 with complications, uncontrolled A&PUncontrolled DM due to nonadherence. Continue Lantus insulin and sliding scale as well as consistent carb diet 8. Acute exacerbation of chronic low back pain A&PContinue pain control ,within the safe margin only. 9. Spinal stenosis of lumbar region A&PUnlikely surgical candidate due to [id number] use and nonadherence 10. Ambulatory dysfunction A&PSevere and in need of intervention Unsafe for discharge 11. Generalized weakness A&PMultofactorial- poor nutrition plus inactivity plus chronic disease issue. 12. History of falling A&PRelated to deconditioning and possibly high doses of opiates 13. Proteinuria A&PCKD 14. Anorexia A&PImproving 15. Hypoalbuminemia A&PWill continue supplementation 16. Hypertension A&PImproving 17. Hypercholesterolemia 18. Peripheral vascular disease A&PAtherosclerosis that is disseminated 19. Hypothyroidism A&PContinue supplementation 20. Depression A&PContinue Cymbalta 21. Anxiety A&PSevere anxiety - continue Duloxetine and PRN benzodiazepine if necessary 22. History of renal artery stenosis A&PHistory of partial right nephrectomy 23. Abnormal chest CT A&PMediastinal lymphadenopathy, Need further follow up. I did review patient's CT from 2016 that also revealed mediastinal lymphadenopathy. 24. Memory loss 25. Noncompliance w/medication treatment due to intermit use of medication A&PMrs Couture will need more structured home based services after 26. Nicotine addiction A&PContinue Nicotine Patch 21 mg . Name Value Range Interpretation Code Description Data [facility] rce(s) Supporting Document(s) ID Date Data Source [id number] 05/15/2020 07:25:00 AM EDT [facility] Name Value Range Interpretation Code Description [facility]) GLUCOSE 138 mg/dL 74-106 H [facility] BLOOD UREA NITROGEN 27 mg/dL 7-18 H [facility] ital CREATININE 1.08 mg/dL 0.6-1.0 H [facility] SODIUM 139 mmol/L 136-145 [facility] POTASSIUM 4.6 mmol/L 3.5-5.1 [facility] CHLORIDE 103 mmol/L 98-107 [facility] CO2 26 mmol/L 21-32 [facility] CALCIUM 9.1 mg/dL 8.5-10.1 [facility] ANION GAP 10.0 mmol/L 5-12 [facility] GLOMERULAR FILTRATION RATE 50 mL/min [facility] GFR IS CALCULATED IN mL/min/1.73m2 [facility]EVENSON L FUNCTION: >90MILDLY DECREASED: 60-89MILDY TO MODERATELY DECREASED: 45-59 MODERATELY TO SEVERELY DECREASED: 30-44SEVERELY DECREASED: 15-29RENAL FAILURE: <15 AST 27 U/L 15-37 [facility] ALT 37 U/L 12-78 [facility] ALKALINE PHOSPHATASE 98 U/L 46-116 [facility] pital TOTAL BILIRUBIN 0.3 mg/dL 0.2-1.0 [facility] TOTAL PROTEIN 5.6 g/dl 6.4-8.2 L [facility] ALBUMIN 2.8 gm/dL 3.4-5.0 L [facility] ID Date Data Source [id number] 05/15/2020 07:06:00 AM EDT [facility] Name Value Range Interpretation Code Description Data [facility] Supporting Document(s) WHITE BLOOD COUNT 13.5 K/mm3 4.0-10.0 H [facility] jer RED BLOOD COUNT 3.64 M/mm3 4.00-5.50 L [facility] HEMOGLOBIN 11.1 gm/dL 12.0-16.0 L [facility] HEMATOCRIT 32.7 % 36.0-48.8 L [facility] MEAN CELL VOLUME 89.8 fl 80-96 [facility] MEAN CORPUSCULAR HEMOGLOBIN 30.5 pg 27.0-31.0 [facility] MEAN CORPUSCULAR HGB CONC 33.9 g/dl 32.0-36.0 [facility] RED CELL DISTRIBUTION WIDTH 14.8 % 10.0-14.5 H [facility] PLATELET COUNT 182 K/mm3 172-450 [facility] MEAN PLATELET VOLUME 10.0 fl 9.0-13.0 [facility] pital GRAN % 93.7 % 50-80.0 H [facility] IG% 1.2 % 0.0-0.2 H [facility] LYMPH % 2.0 % 25.0-50.0 *L [facility] MONO % 3.0 % 2.0-10.0 [facility] EOS % 0.0 % 0-5.0 [facility] BASO % 0.1 % 0.0-2.0 [facility] GRAN # 12.7 K/mm3 2.0-8.00 H [facility] IG# 0.2 K/mm3 0.0-0.2 [facility] LYMPH # 0.3 K/mm3 1.0-5.0 L [facility] MONO # 0.4 K/mm3 0.10-1.20 [facility] EOS # 0.0 K/mm3 0.0-0.5 [facility] BASO # 0.0 K/mm3 0.0-0.2 [facility] ID Date Data Source [id number] 05/14/2020 01:01:00 PM EDT [facility] DATE OF EXAMINATION: 05/14/2020 11:08 EDT CHEST W/O IV CONTRAST HISTORY: No history provided TECHNIQUE: This CT exam was performed using the following dose reduction techniques:automatic exposure control, adjustment of mA and/or kV according to thepatient's size, and use of iterative reconstruction technique. Standard contiguous axial spiral imaging was obtained from lung apices to thelung bases without intravenous contrast administration and with coronalreformatting. COMPARISON: 05/10/2020 FINDINGS: Lungs: Parenchymal densities are present in the right upper and lower lobesconsistent with infiltra sneha that are unchanged compared to the previous study.There are new parenchymal densities in the left lower lobe consistent withatelectasis or infiltrate.Pleural space: There is no pleural effusion.Mediastinum: Several lymph nodes measuring up to 1.4 cm in size are present inthe mediastinum.Heart: The heart is normal in size. A very small pericardial effusion ispresent.Aorta: Atherosclerotic calcification is present in the aorta. There is noaneurysm. A small hiatal hernia is present. Bones/joints: Degenerative change is present in the spine. Calcifications are present in the liver and spleen. IMPRESSION: 1. Right upper and lower lobe infiltrates unchanged compared to the previousstudy.2. There are parenchymal densities in the left lower lobe consistent withatelectasis or infiltrate.3. Very small pericardial effusion.4. Small hiatal hernia. Electronically signed in [id number] by: Giacomo Simon M.D. 05/14/2020 12:55 EDT Name Value Range Interpretation Code Description Data [facility] Supporting Document(s) ID Date Data Source [id number] 05/14/2020 06:18:00 AM EDT [facility] l Name Value Range Interpretation Code Description Data [facility] Supporting Document(s) GLUCOSE 229 mg/dL 74-106 H [facility] BLOOD UREA NITROGEN 30 mg/dL 7-18 H [facility] ital CREATININE 1.16 mg/dL 0.6-1.0 H [facility] SODIUM 137 mmol/L 136-145 [facility] POTASSIUM 5.5 mmol/L 3.5-5.1 H [facility] CHLORIDE 102 mmol/L 98-107 [facility] CO2 27 mmol/L 21-32 [facility] CALCIUM 8.7 mg/dL 8.5-10.1 [facility] ANION GAP 8.0 mmol/L 5-12 [facility] GLOMERULAR FILTRATION RATE 46 mL/min [facility] GFR IS CALCULATED IN mL/min/1.73m2 [facility]EVEN[facility] L FUNCTION: >90MILDLY DECREASED: 60-89MILDY TO MODERATELY DECREASED: 45-59 MODERATELY TO SEVERELY DECREASED: 30-44SEVERELY DECREASED: 15-29RENAL FAILURE: <15 AST 26 U/L 15-37 [facility] ALT 35 U/L 12-78 [facility] ALKALINE PHOSPHATASE 100 U/L 46-116 [facility] TOTAL BILIRUBIN 0.3 mg/dL 0.2-1.0 [facility] TOTAL PROTEIN 5.8 g/dl 6.4-8.2 L [facility] ALBUMIN 2.9 gm/dL 3.4-5.0 L [facility] ID Date Data Source [id number] 05/14/2020 05:53:00 AM EDT [facility] l Name Value Range Interpretation Code Description Data Rosa rce(s) Supporting Document(s) WHITE BLOOD COUNT 12.6 K/mm3 4.0-10.0 [facility] RED BLOOD COUNT 3.72 M/mm3 4.00-5.50 L [facility] l HEMOGLOBIN 11.3 gm/dL 12.0-16.0 L [facility] HEMATOCRIT 33.2 % 36.0-48.8 L [facility] MEAN CELL VOLUME 89.2 fl 80-96 [facility] MEAN CORPUSCULAR HEMOGLOBIN 30.4 pg 27.0-31.0 [facility] MEAN CORPUSCULAR HGB CONC 34.0 g/dl 32.0-36.0 [facility] RED CELL DISTRIBUTION WIDTH 14.7 % 10.0-14.5 H [facility] PLATELET COUNT 164 K/mm3 172-450 L [facility] MEAN PLATELET VOLUME 9.4 fl 9.0-13.0 [facility] GRAN % 94.0 % 50-80.0 H [facility] IG% 1.1 % 0.0-0.2 H [facility] LYMPH % 2.7 % 25.0-50.0 *L [facility] MONO % 2.1 % 2.0-10.0 [facility] EOS % 0.0 % 0-5.0 [facility] BASO % 0.1 % 0.0-2.0 [facility] GRAN # 11.8 K/mm3 2.0-8.00 H [facility] IG# 0.1 K/mm3 0.0-0.2 [facility] LYMPH # 0.3 K/mm3 1.0-5.0 L [facility] MONO # 0.3 K/mm3 0.10-1.20 [facility] EOS # 0.0 K/mm3 0.0-0.5 [facility] BASO # 0.0 K/mm3 0.0-0.2 [facility] ID Date Data Source [id number] 05/13/2020 04:51:00 PM EDT [facility] l Name Value Range Interpretation Code Description Data Rosa rce(s) Supporting Document(s) C REACTIVE PROTEIN 16.1 mg/L 0.0-3.0 [facility] ADD ON FROM AM LABS05/13/20 1651: CRP previously reported as: mg/L ADD ON FROM AM LABS ID Date Data Source [id number] 05/13/2020 06:23:00 AM EDT [facility] l Name Value Range Interpretation Code Description Data Rosa rce(s) Supporting Document(s) GLUCOSE 169 mg/dL 74-106 H [facility] BLOOD UREA NITROGEN 37 mg/dL 7-18 H [facility] CREATININE 1.20 mg/dL 0.6-1.0 H [facility] SODIUM 141 mmol/L 136-145 [facility] POTASSIUM 5.7 mmol/L 3.5-5.1 H [facility] CHLORIDE 105 mmol/L 98-107 [facility] CO2 27 mmol/L 21-32 [facility] CALCIUM 8.8 mg/dL 8.5-10.1 [facility] ANION GAP 9.0 mmol/L 5-12 [facility] GLOMERULAR FILTRATION RATE 44 mL/min [facility] GFR IS CALCULATED IN mL/min/1.73m2 [facility]EV[facility] L FUNCTION: >90MILDLY DECREASED: 60-89MILDY TO MODERATELY DECREASED: 45-59 MODERATELY TO SEVERELY DECREASED: 30-44SEVERELY DECREASED: 15-29RENAL FAILURE: <15 AST 25 U/L 15-37 [facility] ALT 33 U/L 12-78 [facility] ALKALINE PHOSPHATASE 93 U/L 46-116 [facility] pital TOTAL BILIRUBIN 0.2 mg/dL 0.2-1.0 [facility] TOTAL PROTEIN 5.5 g/dl 6.4-8.2 L [facility] ALBUMIN 2.6 gm/dL 3.4-5.0 L [facility] ID Date Data Source [id number] 05/13/2020 05:51:00 AM EDT [facility] Name Value Range Interpretation Code Description Data Rosa rce(s) Supporting Document(s) WHITE BLOOD COUNT 11.6 K/mm3 4.0-10.0 [facility] RED BLOOD COUNT 3.56 M/mm3 4.00-5.50 L [facility] HEMOGLOBIN 11.0 gm/dL 12.0-16.0 L [facility] HEMATOCRIT 32.4 % 36.0-48.8 L [facility] MEAN CELL VOLUME 91.0 fl 80-96 [facility] MEAN CORPUSCULAR HEMOGLOBIN 30.9 pg 27.0-31.0 [facility] MEAN CORPUSCULAR HGB CONC 34.0 g/dl 32.0-36.0 [facility] RED CELL DISTRIBUTION WIDTH 14.9 % 10.0-14.5 H [facility] PLATELET COUNT 159 K/mm3 172-450 L [facility] MEAN PLATELET VOLUME 9.8 fl 9.0-13.0 [facility] pital GRAN % 86.4 % 50-80.0 H [facility] IG% 0.8 % 0.0-0.2 H [facility] LYMPH % 6.4 % 25.0-50.0 L [facility] MONO % 6.1 % 2.0-10.0 [facility] EOS % 0.2 % 0-5.0 [facility] BASO % 0.1 % 0.0-2.0 [facility] GRAN # 10.0 K/mm3 2.0-8.00 H [facility] IG# 0.1 K/mm3 0.0-0.2 [facility] LYMPH # 0.7 K/mm3 1.0-5.0 L [facility] MONO # 0.7 K/mm3 0.10-1.20 [facility] EOS # 0.0 K/mm3 0.0-0.5 [facility] BASO # 0.0 K/mm3 0.0-0.2 [facility] ID Date Data Source [id number] 05/12/2020 11:39:00 AM EDT [facility] Progress Note GeneralEncounter:The neida ent was seen and examined, chart reviewed, discussed with staff, all questions were answered. 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 She did frequently tell staff this yesterday as well. She believes that if she had help at home she can take care of herself. I did again review why she is int hospital with her pneumonia, COPD exacerbation as well as acute on chronic low back pain with radiculopathy. Also her significant weakness, unsteady gait and frequent fall history. Her symptoms are persisting and she remains very unsteady, per staff. She has been seen by physical therapy and they also concurthe patient is significantly unsteady and requires further therapy. With her continued treatment for her pneumonia and COPD as well as her pain, weakness andunsteady gait issues, the patient agrees that she will need an extended hospitalcourse and likely a course of rehabilitation.She has not noted any improvement in her breathing since yesterday. She continues to wheeze frequently. She continues to have a productive cough with yellow phlegm. She denies feeling feverish, but continues to have occasional chills. She has been afebrile. Her vital signs have been stable except for occasional hypertensive readings. She denies nausea, vomiting or diarrhea and had a small formed bowel movement this morning. Her was no melena or blood. She still has no appetite and this has not changed. She has had no recurrence of the lightheaded/dizzy feeling and continues to deny having vertigo. She's had no recurrence of the blurred vision and has no new eyes, ears, nose or throat complaints. There is been no recurrence of the chest discomfort and she just has rare palpitations. She denies abdominal pain and has not had any heartburn, indigestion, dysphagia or odynophagia. She is urinating without any difficulty and feels that she is voiding normally again. She has no complaints. The pain in her low back is persisting as well as radiation in her left lower extremity. It remains diffuse in her left thigh and leg. Her symptoms are exacerbated with standing and walking, and better if lying down. Pain range is 4 8/10. She does get relief with the analgesics. There's been nochange in her generalized weakness and again it is more so in her legs and her arms, left more so than right. She has not had any numbness or tingling. She denies any new skin problems, but continues to bruise easily. 10 point review of systems is unremarkable except for what is documented above. ObjectiveNote:Current MedicationsAcetaminophen 975 MG BID PO Acetaminophen 650 MG Q4H PRN PO pain, fever and/or headache Albuterol Sulfate 2.5 MG Q4H PRN IH she breath/wheezing Albuterol/Ipratropium 3 ML Q6H.RT IH Alprazolam 1 MG QD PRN PO anxiety/agitation (r) Aluminum Hydroxide 30 ML Q4H PRN PO INDIGESTION Amlodipine Besylate 10 MG DAILY PO Atorvastatin Calcium 40 MG HS PO Azithromycin 500 MG Q24H IVPB Sodium Chloride 250 MLCeftriaxone Sodium 1 GM Q24H IVPB Sodium Chloride 100 MLClopidogrel Bisulfate 75 MG DAILY PO Duloxetine HCl 60 MG HS PO (r) Famotidine 20 MG BID PO Heparin Sodium 5,000 UNIT BID SC Hydralazine HCl 50 MG BID PO Insulin Glargine 20 U HS SC Insulin Human Regular MODERATE DOSE - Sliding Scale < 60 MG/DL * Follow Hypoglycemic Protocol 61 - 150 No COVERAGE 151 - 180 2 UNITS 181 - 240 4 UNITS 241 - 300 6 UNITS 301 - 350 8 UNITS 351 - 400 10 UNITS > 400 Serum Glucose, Notify Provider ACHS SC Levothyroxine Sodium 75 MCG DAILY 0700 PO Lisinopril 20 MG BID PO Nicotine 1 PATCH DAILY TD Nutritional Formula (Lactose Free) 1 CAP BID PO Oxycodone HCl 5 MG Q6H PRN PO moderate to severe pain (r) Prednisone 20 MG BID PO Vital Signs 05/11 05/11 05/11 05/11 04 1108 1509 1915 2347 0310 Temp 98.2 98.6 98.5 98.5 97.8 Pulse 96 97 84 81 78 Resp 19 18 20 12 14 B/P 127/53 1 39/62 114/50 133/58 136/61 B/P Mean Pulse Ox 96 94 93 94 92 O2 Delivery O2 Flow Rate FiO2 04/02 0703 Temp 98.6 Pulse 90 Resp 19 B/P 152/65 B/P Mean Pulse Ox 92 O2 Delivery O2 Flow Rate FiO2 Temp; 98.6, Pulse; 90, Resp: 19, B/P: 152/65 SaO2: 92, O2 Status: PHYSICAL EXAMINATION: General: Well-developed, well-nourished white female who is alert, oriented, cooperative,continues to be in mild respiratory distressHEENT: Normocephalic, atraumatic, pupils reactive, sclerae anicteric, oral mucosa is pink and moist.Neck: FROM, supple and nontender, I did not note any masses or lymphadenopathy, there was no JVD or HJR.Lungs: Patient continues to have mild respiratory distress. She continues to use her accessory muscles. I did note less scattered expiratory wheezes and rhonchi. There were no rales.Chest wall: Remains nontender and without crepitation.Heart: Rhythm is regular. Heart tones remain distant. I didn't note a very subtle 2/6 systolic murmur on the right sternal border.Abdomen: Soft, nontender, no masses, bowel sounds are active.Extremities: The patient did move all 4 extremities at the bedside. Peripheral pulses were palpable, but diminished. I do not appreciate any edema or calf tenderness.Neurologic: Cranial nerves grossly intact as tested, normal speech, motor and sensory grossly intact at the bedside.Back: I could not reproduce any discomfort in her lumbosacral region on palpation. I also did not note any muscle spasm.Skin: The patient has diffuse, scattered ecchymosis. Otherwise her skin remainswarm and dry.Psychiatric: No behavior issues were no thomas.Other:Laboratory Tests / 1025 Chemistry Sodium (136 - 145 mmol/L) 141 Potassium (3.5 - 5.1 mmol/L) 4.7 Chloride (98 - 107 mmol/L) 106 Carbon Dioxide (21 - 32 mmol/L) 26 Anion Gap (5 - 12 mmol/L) 9.0 BUN (7 - 18 mg/dL) 33 H Creatinine (0.6 - 1.0 mg/dL) 1.02 H Estimated GFR (MDRD) (mL/min) 53 Glucose (74 - 106 mg/dL) 154 H Calcium (8.5 - 10.1 mg/dL) 8.6 Hematology WBC (4.0 - 10.0 K/mm3) 15.0 H RBC (4.00 - 5.50 M/mm3) 3.66 L Hgb (12.0 - 16.0 gm/dL) 11.0 L Hct (36.0 - 48.8 %) 33.1 L MCV (80 - 96 fl) 90.4 MCH (27.0 - 31.0 pg) 30.1 MCHC Differential (32.0 - 36.0 g/dl) 33.2 RDW (10.0 - 14.5 %) 14.9 H Plt Count (172 - 450 K/mm3) 166 L MPV (9.0 - 13.0 fl) 9.7 Gran % (Auto) (50 - 80.0 %) 93.9 H Gran # (2.0 - 8.00 K/mm3) 14.0 H Immature Gran % (0.0 - 0.2 %) 0.3 H Lymphocytes % (25.0 - 50.0 %) 2.3 *L Monocytes % (2.0 - 10.0 %) 3.5 Eosinophils % (0 - 5.0 %) 0.0 Basophils % (0.0 - 2.0 %) 0.0 Immature Gran # (0.0 - 0.2 K/mm3) 0.1 Lymphocytes # (1.0 - 5.0 K/mm3) 0.3 L Monocytes # (0.10 - 1.20 K/mm3) 0.5 Eosinophils # (0.0 - 0.5 K/mm3) 0.0 Basophils # (0.0 - 0.2 K/mm3) 0.0 Assessment/PlanAllergiesCoded Allergies:Sulfa (Sulfonamide Antibiotics) (Mild, Itching, rash 10/13/15)bacitracin (Mild, Itching 10/13/15)cortisone (Mild, Itching 10/13/15)red (food color) (Mild, Rash 10/13/15)tramadol (Mild, Itching 10/13/15)fluoxetine (unknown 10/13/15)neomycin (unknown 10/13/15)polymyxin B (unknown 10/13/15) Additional NotesAM lab work: CMP and CBC with differentialThe patient has available Tylenol and Maalox as needed.Continue probiotic while on antibiotics to protect GI and BOAT CAMP OPERATOR floraContinue famotidine for GI prophylaxis.Continue heparin for DVT prophylaxis Disposition: As noted above and on previous notes, the patient most likely is going require a course of subacute rehabilitation. She may also likely require placement into an assisted living facility as she does not take care of herself appropriately and has compliance issues with her medical problems as well as medications.Problem List 1. Community acquired pneumonia A&PFollow-up on urine Legionella and pneumococcal antigens. Check on final blood culture results. Continue empiric treatment with her current antibiotic regimen(azithromycin and ceftriaxone). As documented previously, adjust antibiotics based on patient's clinical course as well as based on results of above testing. 2. COPD exacerbation A&PContinue prednisone and begin slow taper as clinically improves. Continue DuoNeb treatments [id number] as well as albuterol nebulizer treatments as needed. Continue to and maintain O2 sat above 90%. Work with respiratory therapy. Continue azithromycin and ceftriaxone as noted above. 3. Leukocytosis A&PPatient had recurrence of her leukocytosis and continues to have a significant left shift. We'll follow-up WBC as well as differential 4. Dehydration A&PThis is clinically improved. We'll discontinue IV fluid. 5. Prerenal azotemia A&PThe patient continues to have slight prerenal azotemia, IV fluids have been discontinued. We'll continue to encourage by mouth fluids and trend renal function. 6. Chronic kidney disease, stage III (moderate) A&PThis is improving with hydration. IV fluid has been discontinued, but will encourage by mouth fluids. Continue to trend renal function. 7. Normocytic anemia A&PThis is actually slowly improved. Continue to follow H&H 8. Diabetes mellitus type 2 with complications, uncontrolled A&PPatient again had significant hyperglycemia in the 300s, this morning. She is noncompliant with her insulin regimen at home or diabetic diet. Her hemoglobin A1c was 11.4. We will continue to closely follow blood sugars. Provide slidingscale coverage. Continue Lantus. Awaiting dietitian evaluation as well. Patient may benefit from some diabetic teaching. 9. Acute exacerbation of chronic low back pain A&PThere's really been no significant change in her symptoms. Continue to monitor response to treatment. We will continue Tylenol around the clock as well as as needed. Patient has available as needed oxycodone for more severe pain. Continue to work with staff and PT. She will likely benefit from a course of subacute rehabilitation as well. 10. Spinal stenosis of lumbar region A&PContinue analgesia as documented above. Continue to work with PT and staff. 11. Ambulatory dysfunction A&PThe patient continues to have significant unsteady gait. She will continue to work with PT and staff. Again, she likely will require a course of subacute rehabilitation. 12. Generalized weakness A&PContinue to work with PT and staff. As her progress has been slow, she will benefit from a course of subacute rehabilitation. 13. History of falling A&PAgain, continue to work with PT and staff. Maintain fall precautions 14. Proteinuria A&PContinue lisinopril and follow up with PCP as an outpatient. 15. Anorexia A&PWe are awaiting dietitian evaluation and recommendations. Continue to encourageby mouth intake. 16. Hypoalbuminemia A&PWe are awaiting dietitian evaluation and recommendations. Continue to encourageby mouth intake. 17. Hypertension A&PThe patient's blood pressure is much better controlled than on presentation. Continue to follow blood pressure closely. Continue amlodipine, hydralazine andlisinopril at her current doses. 18. Hypercholesterolemia A&PContinue Lipitor 19. Peripheral vascular disease A&PThe patient has a history of prior stenting in bilateral lower extremities. Continue clopidogrel as well as management of patient's hypertension, diabetes and hyperlipidemia. 20. Hypothyroidism A&PContinue Synthroid 21. Depression A&PMonitor for exacerbating symptoms and continue duloxetine 22. Anxiety A&PContinue duloxetine as well as as needed Xanax 23. History of renal artery stenosis A&PContinue clopidogrel as well as management of patient's hypertension, diabetes and hyperlipidemia. 24. Abnormal chest CT A&PHer chest CT revealed pneumonia, mediastinal lymphadenopathy as well as severe coronary artery calcification. Patient will need a follow-up CT posttreatment to make sure the pneumonia and lymphadenopathy has resolved. She will also needa follow-up PCP as an outpatient in regards to the severe CAC and need for further workup. 25. Memory loss A&PSymptoms are variable. Closely monitor. Provide supportive care. Patient likely would benefit from neurology evaluation as an outpatient. 26. Noncompliance w/medication treatment due to intermit use of medication A&PStaff will continue to work with patient to try and improve her compliance 27. Nicotine addiction A&PWe again have encouraged patient to not resume her tobacco abuse. Continue nicotine replacement therapy. Disposition Uriah documented above,the patient will likely require a course of subacute rehabilitation. She also may need placement in assisted living. Continue to work with discharge planning team IV Access/Tubes/Garcia CatheterIV Access: IV fluids have been discontinued. Maintain saline lock.Tubes: NoneFoley Catheter: The patient does not have a catheter VTE ProphylaxisVTE Prophylaxis: Continue heparin . Name Value Range Interpretation Code Description Data [facility](s) Supporting Document(s) ID Date Data Source [id number] 05/12/2020 11:07:00 AM EDT [facility] Name Value Range Interpretation Code Description Data [facility](s) Supporting Document(s) GLUCOSE 154 mg/dL 74-106 H [facility] BLOOD UREA NITROGEN 33 mg/dL 7-18 H [facility] ital CREATININE 1.02 mg/dL 0.6-1.0 H [facility] SODIUM 141 mmol/L 136-145 [facility] POTASSIUM 4.7 mmol/L 3.5-5.1 [facility] CHLORIDE 106 mmol/L 98-107 [facility] CO2 26 mmol/L 21-32 [facility] CALCIUM 8.6 mg/dL 8.5-10.1 [facility] ANION GAP 9.0 mmol/L 5-12 [facility] GLOMERULAR FILTRATION RATE 53 mL/min [facility] GFR IS CALCULATED IN mL/min/1.73m2 STEVENSON L FUNCTION: >90MILDLY DECREASED: 60-89MILDY TO MODERATELY DECREASED: 45-59 MODERATELY TO SEVERELY DECREASED: 30-44SEVERELY DECREASED: 15-29RENAL FAILURE: <15 ID Date Data Source [id number] 05/12/2020 10:32:00 AM EDT [facility] Name Value Range Interpretation Code Description Data [facility](s) Supporting Document(s) WHITE BLOOD COUNT 15.0 K/mm3 4.0-10.0 H [facility] jer RED BLOOD COUNT 3.66 M/mm3 4.00-5.50 L [facility] HEMOGLOBIN 11.0 gm/dL 12.0-16.0 L [facility] HEMATOCRIT 33.1 % 36.0-48.8 L [facility] MEAN CELL VOLUME 90.4 fl 80-96 [facility] MEAN CORPUSCULAR HEMOGLOBIN 30.1 pg 27.0-31.0 [facility] MEAN CORPUSCULAR HGB CONC 33.2 g/dl 32.0-36.0 [facility] RED CELL DISTRIBUTION WIDTH 14.9 % 10.0-14.5 H [facility] PLATELET COUNT 166 K/mm3 172-450 L [facility] MEAN PLATELET VOLUME 9.7 fl 9.0-13.0 [facility] pital GRAN % 93.9 % 50-80.0 H [facility] IG% 0.3 % 0.0-0.2 H [facility] LYMPH % 2.3 % 25.0-50.0 *L [facility] MONO % 3.5 % 2.0-10.0 [facility] EOS % 0.0 % 0-5.0 [facility] BASO % 0.0 % 0.0-2.0 [facility] GRAN # 14.0 K/mm3 2.0-8.00 H [facility] IG# 0.1 K/mm3 0.0-0.2 [facility] LYMPH # 0.3 K/mm3 1.0-5.0 L [facility] MONO # 0.5 K/mm3 0.10-1.20 [facility] EOS # 0.0 K/mm3 0.0-0.5 [facility] BASO # 0.0 K/mm3 0.0-0.2 [facility] ID Date Data Source [id number] 05/11/2020 12:33:00 PM EDT [facility] Progress Note GeneralEncounter:Chart re viewed. Patient interviewed and examined. Labs, medications and orders viewed by me. Discussed patient with staff. I did answer all of the patient's questions. SubjectiveGeneral Condition:The patient is feeling a little bit better today. She is less short of breath, but nowhere close to baseline. She is wheezing slightly less (is more than usual). She also has a slightly decreased frequency of cough. The cough remains productive with yellow phlegm. The patient no longer feels feverish andhas been afebrile. She does have occasional chills. She's had no recurrence ofher nausea and denies vomiting. She had a soft small bowel movement this morning, without melena or blood. She still has no appetite. She had no recurrence of the lightheadedness/dizziness, nor has she had vertigo. She denies having headaches. Her vision has improved with her improved glucose readings this morning. She denies any change in speech or swallowing. She has no new ENT complaints. She denies chest pain and has had no palpitations. She denies abdominal pain and has no GI complaints. As noted on her H&P she has nothad any stool incontinence. She seems to be voiding better. It is not as frequent and the amounts are more reasonable. She denies any dysuria, hematuriawith a feeling of incomplete void. She denies any flank pain. Her back pain ispersisting. It is across her low back. It is exacerbated by standing and weightbearing and max intensity is 9/10. When she is lying down and resting it is a 6 out of 10. She continues to have significant generalized weakness, but mostly in her lower extremities, left more so than the right. Physical therapy will be seeing her this afternoon. She denies any numbness or tingling. She does bruise easily, but denies any other skin issues. Full review of systems isas noted above, otherwise is negative. ObjectiveNote:Current MedicationsAcetaminophen 975 MG BID PO Acetaminophen 650 MG Q4H PRN PO pain, fever and/or headache Albuterol Sulfate 2.5 MG Q4H PRN IH she breath/wheezing Albuterol/Ipratropium 3 ML Q6H.RT IH Alprazolam 1 MG QD PRN PO anxiety/agitation Aluminum Hydroxide 30 ML Q4H PRN PO INDIGESTION Amlodipine Besylate 10 MG DAILY PO Atorvastatin Calcium 40 MG HS PO Azithromycin 500 MG Q24H IVPB Sodium Chloride 250 MLCeftriaxone Sodium 1 GM Q24H IVPB Sodium Chloride 100 MLClopidogrel Bisulfate 75 MG DAILY PO (r) Duloxetine HCl 60 MG HS PO Famotidine 20 MG BID PO Heparin Sodium 5,000 UNIT BID SC (r) Hydralazine HCl 50 MG BID PO Insulin Glargine 20 U HS SC Insulin Human Regular MODERATE DOSE - Sliding Scale < 60 MG/DL * Follow Hypoglycemic Protocol 61 - 150 No COVERAGE 151 - 180 2 UNITS 181 - 240 4 UNITS 241 - 300 6 UNITS 301 - 350 8 UNITS 351 - 400 10 UNITS > 400 Serum Glucose, Notify Provider ACHS SC Levothyroxine Sodium 75 MCG DAILY 0700 PO Lisinopril 20 MG BID PO Nicotine 1 PATCH DAILY TD Nutritional Formula (Lactose Free) 1 CAP BID PO Oxycodone HCl 5 MG Q6H PRN PO moderate to severe pain (r) Prednisone 20 MG BID PO Sodium Chloride 1,000 ML .[CONTINUOUS] IV Vital Signs 05/10 05/10 05/10 05/11 05/11 1837 2339 2354 0330 0719 Temp 98.2 97.0 98.2 97.4 Pulse 95 83 84 84 Resp 16 18 18 18 B/P 175/91 116/64 150/80 167/79 B/P Mean Pulse Ox 97 89 91 97 97 O2 Delivery O2 Flow Rate FiO2 05/11 05/11 0742 1108 Temp 97.4 98.2 Pulse 84 96 Resp 18 19 B/P 167/79 127/53 B/P Mean Pulse Ox 97 96 O2 Delivery O2 Flow Rate FiO2 Temp; 98.2, Pulse; 96, Resp: 19, B/P: 127/53 SaO2: 96, O2 Status: PHYSICAL EXAMINATION: General: Pleasant white female who remains alert and oriented. She is cooperative and her respiratory distress is improving.Head: AtraumaticEENT pupils reactive, sclerae anicteric, oral mucosa remains dry, otherwise unremarkable ENT evaluation.Neck normal inspection, non- tender, supple, full range of motion, there was no JVDRespiratory respiratory distress (his mild), accessory muscle use (his persistent), rhonchi (diffuse and scattered), wheezing (both inspiratory & expiratory), the patient is moving more air. I did not note any rales and theredefinitely was no stridorCardiovascular regular rate/rhythm, no JVD, no murmur, heart tones remain distant.Gastrointestinal normal bowel sounds, non tender, soft, no or ganomegaly, no pulsatile massBack normal inspection, no CVA tenderness, there was some slight palpable tenderness in the lumbosacral region, mostly the midline. I did not note any muscle spasm.Extremities non-tender, normal range of motion, normal inspection, no calf tenderness, no pedal edema, peripheral pulses are diminishedNeurologic/Psychiatric alert, child monitor II-XII nml as tested, normal mood/affect, no motor/sensory deficits, oriented x 3, gait was not tested, Exam limited to the bedsideSkin normal color, warm/dry, scattered ecchymosisLymphatic no adenopathyOther:Laboratory Tests 05/10 05/10 05/10 05/11 2143 2150 2200 0615 Chemistry Sodium (136 - 145 mmol/L) 140 Potassium (3.5 - 5.1 mmol/L) 4.9 Chloride (98 - 107 mmol/L) 103 Carbon Dioxide (21 - 32 mmol/L) 27 Anion Gap (5 - 12 mmol/L) 10.0 BUN (7 - 18 mg/dL) 39 H Creatinine (0.6 - 1.0 mg/dL) 1.34 H Estimated GFR (MDRD) (mL/min) 39 Glucose (74 - 106 mg/dL) 522 *H 113 H Calcium (8.5 - 10.1 mg/dL) 8.3 L Hematology WBC (4.0 - 10.0 K/mm3) 9.3 RBC (4.00 - 5.50 M/mm3) 3.47 L Hgb (12.0 - 16.0 gm/dL) 10.6 L Hct (36.0 - 48.8 %) 31.0 L MCV (80 - 96 fl) 89.3 MCH (27.0 - 31.0 pg) 30.5 MCHC Differential (32.0 - 36.0 g/dl) 34.2 RDW (10.0 - 14.5 %) 14.5 Plt Count (172 - 450 K/mm3) 162 L MPV (9.0 - 13.0 fl) 9.8 Gran % (Auto) (50 - 80.0 %) 92.6 H Gran # (2.0 - 8.00 K/mm3) 8.6 H Immature Gran % (0.0 - 0.2 %) 0.4 H Lymphocytes % (25.0 - 50.0 %) 3.1 *L Monocytes % (2.0 - 10.0 %) 3.8 Eosinophils % (0 - 5.0 %) 0.0 Basophils % (0.0 - 2.0 %) 0.1 Immature Gran # (0.0 - 0.2 K/mm3) 0.0 Lymphocytes # (1.0 - 5.0 K/mm3) 0.3 L Monocytes # (0.10 - 1.20 K/mm3) 0.4 Eosinophils # (0.0 - 0.5 K/mm3) 0.0 Basophils # (0.0 - 0.2 K/mm3) 0.0 Miscellaneous Ref Test Please Note Pending Other Body Source Fluid Culture Pending Serology Specimen Source Pending Legionella Antigen SENT TO [place] S. pneumoniae Antigen Pending Organism ID Pending 05/11 05/11 0615 0615 Chemistry Estimat Average Glucose (mg/dL) 280.5 Hemoglobin A1c (3.8 - 5.6 %) 11.4 H TSH (0.360 - 3.740 uIU/mL) 0.951 Assessment/PlanAllergiesCoded Allergies:Sulfa (Sulfonamide Antibiotics) (Mild, Itching, rash 10/13/15)bacitracin (Mild, Itching 10/13/15)cortisone (Mild, Itching 10/13/15)red (food color) (Mild, Rash 10/13/15)tramadol (Mild, Itching 10/13/15)fluoxetine (unknown 10/13/15)neomycin (unknown 10/13/15)polymyxin B (unknown 10/13/15) Additional NotesContinue probio tic, while on antibioticsContinue GI prophylaxis with PepcidMaintain DVT prophylaxis with heparinContinue as needed Tylenol and MaaloxA.m. labs: CBC with differential and BMPProblem List 1. Community acquired pneumonia A&PThe patient's symptoms are starting to improve. Follow up on blood culture results as well as urine and Legionella antigens. Continue empiric treatment with Zithromax and Rocephin and as stated previously adjust antibiotic regimen based on patient's clinical response and results from cultures and urinary antigens. 2. COPD exacerbation A&PContinue Rocephin and Zithromax. Continue nebulizer treatments [id number] when necessary. Continue O2 and closely monitor sats, trying to maintain above 90%. Continue prednisone and eventually will need a slow taper 3. Leukocytosis A&PThis has resolved 4. Abnormal CBC A&PThe patient continues to have an abnormal differential with left shift. Follow differential to make sure it is normalizing as patient clinically improves 5. Dehydration A&PThis is persisting. Continue IV fluids at least 1 more day. Encourage by mouthfluids. Follow up BUN, creatinine and GFR. 6. Prerenal azotemia A&PContinue IV fluids at least 1 more day. Encourage by mouth fluids. Follow up BUN, creatinine and GFR. 7. Chronic kidney disease, stage III (moderate) A&PContinue IV fluids at least 1 more day. Encourage by mouth fluids. Follow up BUN, creatinine and GFR. 8. Hyponatremia A&PThis has been corrected 9. Hypochloremia A&PThis has also been corrected 10. Normocytic anemia A&PTrend H&H. Depending on how low the value is, we'll decide if workup will be initiated here as an inpatient or it can be performed as an outpatient 11. Diabetes mellitus type 2 with complications, uncontrolled A&PPatient has very poor control of her diabetes and is noncompliant with medications and diet. Her hemoglobin A1c was 11.4. She did have significantly elevated blood sugars last night over 500, but has responded nicely to treatment. Continue consistent carb diet. Await dietitian evaluation. Continue to check fingersticks before meals and at bedtime and provide sliding scale insulin coverage. Continue Lantus as well. 12. Acute exacerbation of chronic low back pain A&PThe patient does have associated left lower extremity radiculopathy. We are awaiting PT evaluation. Continue to work with staff. Continue Tylenol around the clock as well as when necessary. Patient also has available oxycodone as needed. As documented previously, she likely will benefit from outpatient pain management. 13. Spinal stenosis of lumbar region A&PAwaiting PT evaluation. Continue to work with staff. 14. Ambulatory dysfunction A&PAwaiting PT evaluation. Continue to work with staff. 15. Generalized weakness A&PMonitor response to treatment. Await PT evaluation. Work with staff. Discussed with patient, that she may require a course of subacute rehabilitation, as well. 16. History of falling A&PMaintain fall precautions. Continue to work with staff and PT 17. Proteinuria A&PContinue MERE inhibitor and follow up with PCP as an outpatient 18. Anorexia A&PThis is persisting. Encourage by mouth intake. Await dietitian evaluation and recommendations. Monitor response to treatment. 19. Hypoalbuminemia A&PEncourage by mouth intake. Await dietitian evaluation and recommendations. Monitor response to treatment. 20. Hypertension A&PBlood pressure readings overall are improving with treatment. Continue to follow readings. We'll continue current treatment plan with hydralazine, lisinopril and amlodipine. 21. Hypercholesterolemia A&PContinue statin 22. Peripheral vascular disease A&PContinue Plavix as well as secondary prevention treatment 23. Hypothyroidism A&PThe patient's TSH was in the therapeutic range. Continue current levothyroxine dose. 24. Depression A&PContinue Cymbalta 25. Anxiety A&PContinue Cymbalta as well as as needed Xanax 26. History of renal artery stenosis A&PContinue Plavix as well as secondary prevention treatment 27. Abnormal chest CT A&PThe patient has the community acquired pneumonia, as documented above. In addition she has severe coronary artery calcification and mediastinal lymphadenopathy. She will need follow-up CT to make sure the lymphadenopathy aswell as pneumonia has resolved. She will also need cardiology evaluation/workupand I will defer this to her PCP as an outpatient. 28. Memory loss A&PContinue supportive measures. As discussed previously, may benefit from neurology evaluation as an outpatient 29. Noncompliance w/medication treatment due to intermit use of medication A&PThis really needs to be worked on this patient is poorly compliant with her disease processes, diet, activity and medications 30. Nicotine addiction A&PContinue to encourage cessation. Continue nicotine replacement therapy Disposition PlanThe patient did ask about how long she'll be in the hospital and we discussed atlength it depends on how she responds. I still believe she likely will require a course of subacute rehabilitation and did discuss this with her. She would beagreeable. I also discussed her son's concerns, as well as mine regarding her going home alone and possible assisted living placement. She would be agreeable, as long as she can bring her cat.IV Access/Tubes/Garcia CatheterIV Access: Maintain current IV per protocolTubes: None VTE ProphylaxisVTE Prophylaxis: Heparin. Name Value Range Interpretation Code Description Data Rosa rce(s) Supporting Document(s) ID Date Data Source [id number] 05/11/2020 07:07:00 AM [facility] Name Value Range Interpretation Code Description Data Rosa rce(s) Supporting Document(s) TSH 0.951 uIU/mL 0.360-3.740 [facility] ID Date Data Source [id number] 05/11/2020 06:58:00 AM [facility] l Name Value Range Interpretation Code Description Data Rosa rce(s) Supporting Document(s) HGBA1C 11.4 % 3.8-5.6 H [facility] Diabetic > or = to 6.5%Prediabetes 5.7-6 .4%Normal <5.7 ESTIMATED AVERAGE GLUCOSE 280.5 mg/dL [facility] ID Date Data Source [id number] 05/11/2020 06:52:00 AM [facility] l Name Value Range Interpretation Code Description Data Rosa rce(s) Supporting Document(s) GLUCOSE 113 mg/dL 74-106 H [facility] BLOOD UREA NITROGEN 39 mg/dL 7-18 H [facility] ital CREATININE 1.34 mg/dL 0.6-1.0 H [facility] SODIUM 140 mmol/L 136-145 [facility] POTASSIUM 4.9 mmol/L 3.5-5.1 [facility] CHLORIDE 103 mmol/L 98-107 [facility] CO2 27 mmol/L 21-32 [facility] CALCIUM 8.3 mg/dL 8.5-10.1 L [facility] ANION GAP 10.0 mmol/L 5-12 [facility] GLOMERULAR FILTRATION RATE 39 mL/min [facility] GFR IS CALCULATED IN mL/min/1.73m2 STEVENSON L FUNCTION: >90MILDLY DECREASED: 60-89MILDY TO MODERATELY DECREASED: 45-59 MODERATELY TO SEVERELY DECREASED: 30-44SEVERELY DECREASED: 15-29RENAL FAILURE: <15 ID Date Data Source [id number] 05/11/2020 06:44:00 AM EDT [facility] Name Value Range Interpretation Code Description Data Rosa rce(s) Supporting Document(s) WHITE BLOOD COUNT 9.3 K/mm3 4.0-10.0 [facility] al RED BLOOD COUNT 3.47 M/mm3 4.00-5.50 L [facility] HEMOGLOBIN 10.6 gm/dL 12.0-16.0 [facility] HEMATOCRIT 31.0 % 36.0-48.8 [facility] MEAN CELL VOLUME 89.3 fl 80-96 [facility] MEAN CORPUSCULAR HEMOGLOBIN 30.5 pg 27.0-31.0 [facility] MEAN CORPUSCULAR HGB CONC 34.2 g/dl 32.0-36.0 [facility] RED CELL DISTRIBUTION WIDTH 14.5 % 10.0-14.5 [facility] PLATELET COUNT 162 K/mm3 172-450 L [facility] MEAN PLATELET VOLUME 9.8 fl 9.0-13.0 [facility] pital GRAN % 92.6 % 50-80.0 H [facility] IG% 0.4 % 0.0-0.2 H [facility] LYMPH % 3.1 % 25.0-50.0 *L [facility] MONO % 3.8 % 2.0-10.0 [facility] EOS % 0.0 % 0-5.0 [facility] BASO % 0.1 % 0.0-2.0 [facility] GRAN # 8.6 K/mm3 2.0-8.00 H [facility] IG# 0.0 K/mm3 0.0-0.2 [facility] LYMPH # 0.3 K/mm3 1.0-5.0 L [facility] MONO # 0.4 K/mm3 0.10-1.20 [facility] EOS # 0.0 K/mm3 0.0-0.5 [facility] BASO # 0.0 K/mm3 0.0-0.2 [facility] ID Date Data Source [id number] 05/14/2020 04:09:00 PM EDT [facility]ital Name Value Range Interpretation Code Description Data Rosa rce(s) Supporting Document(s) SPECIMEN SOURCE Urine . [facility] STREPTOCOCCUS PEUMONIAE AG Negative Negative [facility] BODY FLUID CULTURE STERILE Not indicated. . [facility] ORGANISM ID Not indicated. . [facility] PLEASE NOTE: Comment . [facility] [employer] standar ds require aculture to be performed on CSF specimens submitted forbacterial antigen testing. (CAP [id number]) Urine specimenswill not be cultured.Performed at: [address] [id number] Director: Ramu Cota MD, Phone: [phone] ID Date Data Source [id number] 05/14/2020 04:05:00 PM EDT [facility] Name Value Range Interpretation Code Description Data Rosa rce(s) Supporting Document(s) Specimen Source Urine [facility] Streptococcus pneumoniae Ag Negative Negative [facility] Body Fluid Culture, Sterile Not indicated. [facility] Organism ID Not indicated. [facility] Note: [facility] [employer] standar ds require a culture to beperformed on CSF specimens submitted for bacterial antigen testing.(CAP SANDRA.[id number]) Urine specimens will not be cultured. ID Date Data Source [id number] 05/10/2020 10:19:00 PM EDT [facility] l Name Value Range Interpretation Code Description Data Rosa rce(s) Supporting Document(s) LEGIONELLA AG URINE-ANGELES SENT TO [facility] ID Date Data Source [id number] 05/10/2020 10:09:00 PM EDT [facility] l Name Value Range Interpretation Code Description Data Rosa rce(s) Supporting Document(s) GLUCOSE 522 mg/dL 74-106 *H [facility] ID Date Data Source [id number] 05/11/2020 04:14:00 PM EDT [facility] hospitalized ([facility] or [facility])? Y Name Value Range Interpretation Code Description Data Rosa rce(s) Supporting Document(s) L PNEUMO SERO 1 NEGATIVE NEGATIVE N [facility] MANUAL ENTRY RECHECKED Screen for L. pneumophila serogroup 1: NEGATIVE (Presumptive negative for L. pneumophila serogroup 1 antigen in urine, suggesting no recent or current infection. Infection due to Legionella cannot be ruled out since other serogroups and species may cause disease, antigen may not be present in urine in early infection, and the level of antigen present in the urine may be below the detection limit of the test.)TESTED BY CHROMATOGRAPHIC IMMUNOASSAY (REFERENCE RANGE= NEGATIVE) ID Date Data Source [id number] 05/10/2020 05:30:00 PM EDT [facility] Name Value Range Interpretation Code Description Data [facility] rce(s) Supporting Document(s) [facility] This lab was ordered by [facility] and reported by [facility]. ID Date Data Source [id number] 05/10/2020 05:56:00 PM EDT [facility] jer TSYSORDER [id number] Name Value Range Interpretation Code Description Data Rosa rce(s) Supporting Document(s) COVID-19 NEGATIVE NEGATIVE [facility] Negative results should be treated as pr esumptive and, ifinconsistent with clinical signs and symptoms or necessaryfor patient management, should be tested with differentauthorized or cleared molecular tests.Negative results do not preclude SARS-CoV-2 infection andshould not be used as the sole basis for patient managementdecisions.This is a rapid molecular in vitro diagnostic test utilizingan isothermal nucleic acid amplification technology intendedfor the qualitative detection of nucleic acid from the SARS-CoV-2 viral RNA in direct nasal, nasopharyngeal orthroat swabs from individuals who are suspected of COVID-19.Results are for the indentification of SARS-CoV-2 RNA. GyoCIEE-RsV-6 RNA is generally detectable in respiratorysamples during the actue phase of infection. ID Date Data Source [id number] 05/10/2020 04:22:00 PM EDT [facility] TSYSORDER [id number] Name Value Range Interpretation Code Description Data Rosa rce(s) Supporting Document(s) TROPONIN I 0.031 ng/mL 0.000-0.056 [facility] ID Date Data Source [id number] 05/10/2020 02:11:00 PM EDT [facility] DATE OF EXAMINATION: 05/10/2020 13:07 EDT CHEST W/O IV CONTRAST HISTORY: Congestion TECHNIQUE: This CT exam was performed using the following dose reduction techniques:automatic exposure control, adjustment of mA and/or kV according to thepatient's size, and use of iterative reconstruction technique. Standard contiguous axial spiral imaging was obtained from lung apices to thelung bases without intravenous contrast administration and with coronalreformatting. FINDINGS: Lungs: Moderate parenchymal disease is seen in the right upper lobe consistentwith pneumonia. Also seen is mild parenchymal disease in the medial aspect ofthe right lower lobe.Pleural space: No pleural air or pleural fluidMediastinum: Several lymph nodes are noted largest measuring 2 x 0.7 cm.Bones/joints: Degenerative changes of dorsal spine. Moderate osteopenia. Adrenal glands appear normal IMPRESSION: Moderate parenchymal disease in the right upper lobe and mild parenchymaldisease medial aspect of right lower lobe consistent with pneumonia. This inconjunction with mediastinal nodes should be followed to resolution with anoncontrast enhanced CT. Severe calcified coronary arterial plaque formation warrants further clinicaleva luation. Electronically signed in [id number] by: Tabitha De La Vega M.D. 05/10/2020 14:06 EDT Name Value Range Interpretation Code Description Data Rosa rce(s) Supporting Document(s) ID Date Data Source [id number] 05/10/2020 01:40:[id number] Name Value Range Interpretation Code Description Data Rosa rce(s) Supporting Document(s) URINE RBC 0-2 /hpf 0-3 [facility] URINE WBC 0-2 /hpf 0-5 H [facility] URINE EPITHELIAL CELLS 1+ /hpf 0 [facility]spital URINE HYALINE CAST 0-2 /LPF 0 [facility] ID Date Data Source [id number] 05/10/2020 01:32:00 PM EDT [facility] ital TSYSORDER [id number] Name Value Range Interpretation Code Description Data Rosa rce(s) Supporting Document(s) URINE COLOR. [facility] URINE APPEARANCE CLEAR [facility] l URINE GLUCOSE (UA) >=1000 mg/dL NEGATIVE H [facility] spital URINE BILIRUBIN NEGATIVE NEGATIVE [facility] URINE KETONE NEGATIVE mg/dL NEGATIVE [facility] SPECIFIC GRAVITY,URINE 1.025 1.005-1.030 [facility] URINE BLOOD NEGATIVE NEGATIVE [facility] PH,URINE 5.5 5.0-9.0 [facility] URINE PROTEIN 4+(>=300) mg/dL NEGATIVE H [facility] ital URINE UROBILINOGEN NORMAL(0.2-1) mg/dL 0-1 R [facility] URINE NITRATE NEGATIVE NEGATIVE [facility] URINE LEUKOCYTE ESTERASE NEGATIVE NEGATIVE [facility] ID Date Data Source [id number] 05/16/2020 07:10:00 AM EDT [facility] Name Value Range Interpretation Code Description Data Rosa rce(s) Supporting Document(s) [facility] ID Date Data Source [id number] 05/10/2020 01:21:00 PM EDT [facility] TSYSORDER [id number] Name Value Range Interpretation Code Description Data Rosa rce(s) Supporting Document(s) LACTIC ACID 0.9 mmol/L 0.4-2.0 [facility] ID Date Data Source [id number] 05/10/2020 12:51:00 PM EDT [facility] TSYSORDER [id number] Name Value Range Interpretation Code Description Data Rosa rce(s) Supporting Document(s) PH 7.35 7.31-7.41 [facility] VENOUS PCO2 53.1 mmHg 41-51 H [facility] VENOUS PO2 33 mmHg 35-42 L [facility] VENOUS BLODD O2 SATURATION 55.4 % 68-77 L [facility] VENOUS BLOOD HCO3 28.2 meq/L 24.0-25.0 H [facility] VENOUS BASE EXCESS 1.9 -3.0-3.0 [facility] VENOUS BLOOD CO2 29.9 mmol/L 23.0-32.0 [facility] ID Date Data Source [id number] 05/16/2020 07:10:00 AM EDT [facility] Name Value Range Interpretation Code Description Data Rosa rce(s) Supporting Document(s) [facility] ID Date Data Source [id number] 05/10/2020 12:59:00 PM EDT [facility] [id number] Name Value Range Interpretation Code Description Data Rosa rce(s) Supporting Document(s) PARTIAL THROMBOPLASTIN TIME 23.6 SECONDS 21.2-27.3 [facility] ID Date Data Source [id number] 05/10/2020 12:54:00 PM EDT [facility] TSYSORDER [id number] Name Value Range Interpretation Code Description Data Rosa rce(s) Supporting Document(s) PROTHROMBIN TIME (PATIENT) 9.8 SECONDS 9.1-11.6 [facility] INR 0.94 0.87-1.06 [facility] ID Date Data Source [id number] 05/10/2020 12:50:00 PM EDT [facility] TSYSORDER [id number] Name Value Range Interpretation Code Description Data Rosa rce(s) Supporting Document(s) TROPONIN I 0.031 ng/mL 0.000-0.056 [facility] ID Date Data Source [id number] 05/10/2020 12:50:00 PM EDT [facility] TSYSORDER [id number] Name Value Range Interpretation Code Description Data Rosa rce(s) Supporting Document(s) MAGNESIUM 2.2 mg/dL 1.8-2.4 [facility] ID Date Data Source [id number] 05/10/2020 12:31:00 PM EDT [facility] TSYSORDER [id number] Name Value Range Interpretation Code Description Data Rosa rce(s) Supporting Document(s) GLUCOSE 313 mg/dL 74-106 H [facility] BLOOD UREA NITROGEN 33 mg/dL 7-18 H [facility] ital CREATININE 1.31 mg/dL 0.6-1.0 H [facility] SODIUM 131 mmol/L 136-145 L [facility] POTASSIUM 4.6 mmol/L 3.5-5.1 [facility] CHLORIDE 96 mmol/L 98-107 L [facility] CO2 26 mmol/L 21-32 [facility] CALCIUM 9.6 mg/dL 8.5-10.1 [facility] ANION GAP 9.0 mmol/L 5-12 [facility] GLOMERULAR FILTRATION RATE 40 mL/min [facility] GFR IS CALCULATED IN mL/min/1.73m2 [facility] L FUNCTION: >90MILDLY DECREASED: 60-89MILDY TO MODERATELY DECREASED: 45-59 MODERATELY TO SEVERELY DECREASED: 30-44SEVERELY DECREASED: 15-29RENAL FAILURE: <15 AST 19 U/L 15-37 [facility] ALT 32 U/L 12-78 [facility] ALKALINE PHOSPHATASE 97 U/L 46-116 [facility] TOTAL BILIRUBIN 0.6 mg/dL 0.2-1.0 [facility] TOTAL PROTEIN 7.2 g/dl 6.4-8.2 [facility] ALBUMIN 3.0 gm/dL 3.4-5.0 [facility] ID Date Data Source [id number] 05/10/2020 11:59:00 AM EDT [facility] TSYSORDER [id number] Name Value Range Interpretation Code Description Data Rosa rce(s) Supporting Document(s) WHITE BLOOD COUNT 18.2 K/mm3 4.0-10.0 H [facility] RED BLOOD COUNT 4.32 M/mm3 4.00-5.50 [facility] HEMOGLOBIN 13.0 gm/dL 12.0-16.0 [facility] HEMATOCRIT 38.4 % 36.0-48.8 [facility] MEAN CELL VOLUME 88.9 fl 80-96 [facility] MEAN CORPUSCULAR HEMOGLOBIN 30.1 pg 27.0-31.0 [facility] MEAN CORPUSCULAR HGB CONC 33.9 g/dl 32.0-36.0 [facility] RED CELL DISTRIBUTION WIDTH 14.8 % 10.0-14.5 H [facility] PLATELET COUNT 182 K/mm3 172-450 [facility] MEAN PLATELET VOLUME 9.6 fl 9.0-13.0 [facility] pital GRAN % 91.7 % 50-80.0 H [facility] IG% 0.3 % 0.0-0.2 H [facility] LYMPH % 2.5 % 25.0-50.0 *L [facility] MONO % 4.3 % 2.0-10.0 [facility] EOS % 1.0 % 0-5.0 [facility] BASO % 0.2 % 0.0-2.0 [facility] GRAN # 16.7 K/mm3 2.0-8.00 *H [facility] IG# 0.1 K/mm3 0.0-0.2 [facility] LYMPH # 0.5 K/mm3 1.0-5.0 L [facility] MONO # 0.8 K/mm3 0.10-1.20 [facility] EOS # 0.2 K/mm3 0.0-0.5 [facility] BASO # 0.0 K/mm3 0.0-0.2 [facility] ID Date Data Source [id number] 02/19/2020 09:38:00 PM EST [facility] Name Value Range Interpretation Code Description Data Rosa rce(s) Supporting Document(s) SARS-CoV-2 (COVID 19) NEGATIVE - SARS-CoV-2 (COVID19) [facility] This lab was ordered by [facility] a nd reported by [facility]. ID Date Data Source [id number] 01/04/2020 02:54:00 PM EST [facility] ([facility], ) Name Value Range Interpretation Code Description Data Rosa rce(s) Supporting Document(s) Gram Stain Laboratory test result Normal (applies to non-n umeric results) [facility] ([facility], ) QUALITY: GOOD MODERATE EPITHELIAL CELLS MODERATE WBCS MANY GRAM POSITIVE COCCI IN PAIRS, CHAINS AND CLUSTERS MODERATE GRAM POSITIVE RODS MODERATE GRAM NEGATIVE RODS Sputum Culture Laboratory test result Normal (applies to non-numeric results) [facility] ([facility], ) FULL REPORT IN LAB NOTES ([facility] and [facility] ). NORMAL KELLI PRESENT ORGANISM 1: YEAST LIKE ORGANISM QUANTITY OF GROWTH FEW ORGANISM 1: YEAST LIKE ORGANISM ID Date Data Source [id number] 01/03/2020 03:12:00 PM EST [facility] ([facility] Name Value Range Interpretation Code Description Data Rosa rce(s) Supporting Document(s) White Blood Count 16.2 10 4.0-10.0 [facility] ([facility] Hemoglobin 14.8 g/dL 12.0-15.5 [facility] ([facility] Red Blood Count 4.85 10 4.00-5.40 [facility] ([facility] Hematocrit 45.8 % 36.0-47.0 [facility] ([facility] Mean Corpuscular Volume 94.4 fl 80.0-96.0 M [facility] ([facility] Red Cell Distribution Width 14.4 % 11.5-14.5 [facility] ([facility] Mean Corpuscular Hemoglobin 30.5 pg 27.0-33.0 [facility] ([facility] Mean Corpuscular HGB Conc 32.3 g/dL 32.0-36.5 [facility] ([facility] Lymph % 5.7 % 24.0-44.0 [facility] ([facility] Platelet Count, Automated 313 10 150-450 [facility] ([facility] Neutrophils % 89.9 % 36.0-66.0 [facility] ([facility] Eos % 0.3 % 0.0-3.0 [facility] ([facility] Curry % 3.0 % 0.0-5.0 [facility] ([facility] Baso % 0.6 % 0.0-1.0 [facility] ([facility] Immature Granulocyte % 0.5 % 0-3.0 [facility] ([facility] Neutrophils # 14.6 10 1.5-8.5 [facility] ([facility] Nucleated Red Blood Cell % 0.0 % 0-0 [facility] ([facility] Curry # 0.5 10 0.0-0.8 [facility] ([facility] Lymph # 0.9 10 1.5-5.0 [facility] ([facility] Eos # 0.1 10 0.0-0.5 [facility] ([facility] Baso # 0.1 10 0.0-0.2 [facility] ([facility] ID Date Data Source [id number] 01/03/2020 03:12:00 PM EST [facility] ([facility] Name Value Range Interpretation Code Description Data Rosa rce(s) Supporting Document(s) Glucose, Fasting 335 mg/dL 70-100 [facility] ([facility] Blood Urea Nitrogen 21 mg/dL 7-18 [facility] ([facility] Creatinine For GFR 1.42 mg/dL 0.55-1.30 [facility] ([facility] Glomerular Filtration Rate 38.5 [facility] ([facility] <content>Units are mL/min/1.73 m2</content>
<content></content>
<content>Chronic Kidney Disease Staging per NKF:</content>
<content></content>
<content>Stage I & II GFR >=60 Normal to Mildly Decreased</content>
<content>Stage III GFR 30- 59 Moderately Decreased</content>
<content>Stage IV GFR 15-29 Severely Decreased</content>
<content>Stage V GFR <15 Very Little GFR Left</content>
<content>ESRD GFR <15 on [employer]</content>
<content></content> Carbon Dioxide Level 25 meq/L 21-32 [facility] ([facility] Chloride Level 102 meq/L 98-107 [facility] ([facility] Potassium Serum 5.0 meq/L 3.5-5.1 [facility] ([facility] Sodium Level 136 meq/L 136-145 [facility] ([facility] Anion Gap 9 meq/L 8-16 [facility] ([facility] Ast/Sgot 18 U/L 7-37 [facility] ([facility] Calcium Level 9.6 mg/dL 8.8-10.2 [facility] ([facility] Alkaline Phosphatase 98 U/L 45-117 [facility] ([facility] Alt/SGPT 22 U/L 12-78 [facility] ([facility] Bilirubin,Total 0.6 mg/dL 0.2-1.0 [facility] ([facility] Albumin 3.4 GM/DL 3.2-5.2 [facility] ([facility] Total Protein 6.6 GM/DL 6.4-8.2 [facility] ([facility] Albumin/Globulin Ratio 1.1 1.2-2.2 [facility] ([facility] ID Date Data Source [id number] 01/03/2020 03:12:00 PM EST [facility] ([facility] Name Value Range Interpretation Code Description Data Rosa rce(s) Supporting Document(s) Thyrotropin [Units/volume] in Serum or Plasma 1.340 uIU/ML 0.358-3.74 0 [facility] ([facility] Thyroxine (T4) free [Mass/volume] in Serum or Plasma 1.58 ng/dL 0.76- 1.46 [facility] ([facility] ID Date Data Source [id number] 01/03/2020 03:12:00 PM EST [facility] ([facility] Name Value Range Interpretation Code Description Data Rosa e(s) Supporting Document(s) Hemoglobin A1c 8.7 % [facility] <content>REFERENCE RANGES:</content><br/ ><content></content>
<content><=5.6% NORMAL</content>
<content>5.7-6.4% SUGGESTS IMPAIRED GLUCOSE METABOLISM/PREDIABETIC</content>
<content>>= 6.5% ABNORMAL</content>
<content></content> Estimated Average Glucose 203 mg/dL 60-110 [facility] ([facility] ID Date Data Source [id number] 11/09/2019 03:24:00 PM EDT [facility] Name Value Range Interpretation Code Description Data Rosa [facility](s) Supporting Document(s) Glucose, Fasting 124 mg/dL 70-100 Above high normal M [facility]ENT ([facility]) Creatinine For GFR 1.04 mg/dL 0.55-1.30 Normal (applies to non -numeric results) [facility] ([facility]) Blood Urea Nitrogen 19 mg/dL 7-18 Above high normal [facility] ([facility]) Potassium Serum 5.4 meq/L 3.5-5.1 Above high normal ME D[facility] ([facility]) Sodium Level 138 meq/L 136-145 Normal (applies to non-numeric res ults) [facility] ([facility]) Glomerular Filtration Rate 55.1 Normal (applies to n on-numeric results) [facility]) <content>Units are mL/min/1.73 m2</content>
<content></content>
<content>Chronic Kidney Disease Staging per NKF:</content>
<content></content>
<content>Stage I & II GFR >=60 Normal to Mildly Decreased</content>
<content>Stage III GFR 30- 59 Moderately Decreased</content>
<content>Stage IV GFR 15-29 Severely Decreased</content>
<content>Stage V GFR <15 Very Little GFR Left</content>
<content>ESRD GFR <15 on [employer]</content>
<content></content> Chloride Level 107 meq/L 98-107 Normal (applies to non-numeric r esults) [facility] ([facility]) Anion Gap 7 meq/L 8-16 Below low normal [facility] ( [facility]) Carbon Dioxide Level 24 meq/L 21-32 Normal (applies to non-num jd results) [facility]) Calcium Level 9.8 mg/dL 8.8-10.2 Normal (applies to non-numeric re sults) [facility]) ID Date Data Source [id number] 11/09/2019 03:24:00 PM EDT [facility] ([facility]) Name Value Range Interpretation Code Description Data Rosa rce(s) Supporting Document(s) White Blood Count 13.6 10 4.0-10.0 Above high normal [facility] ([facility]) Hematocrit 44.8 % 36.0-47.0 Normal (applies to non-numeric resul ts) [facility]) Red Blood Count 4.83 10 4.00-5.40 Normal (applies to non-numeric results) [facility] ([facility]) Hemoglobin 14.4 g/dL 12.0-15.5 Normal (applies to non-numeric resul ts) [facility]) Mean Corpuscular Hemoglobin 29.8 pg 27.0-33.0 Norm al (applies to non-numeric results) [facility]) Mean Corpuscular HGB Conc 32.1 g/dL 32.0-36.5 Normal (applies to non-numeric results) [facility]) Mean Corpuscular Volume 92.8 fl 80.0-96.0 Normal ( applies to non-numeric results) [facility]) Red Cell Distribution Width 15.0 % 11.5-14.5 Above high normal [facility]) Nucleated Red Blood Cell % 0.0 % 0-0 Normal (applies to n on-numeric results) [facility] Platelet Count, Automated 214 10 150-450 Normal (applies to non-numeric results) [facility] Procedure Social History Code Duration Value Status Description Data Source(s ) Smoking 08/18/2020 12:00:00 AM EDT Current Smoker completed Curre nt Smoker eCW1 ([facility]) Smoking 08/18/2020 12:00:00 AM EDT Current Smoker completed Curre nt Smoker eCW1 ([facility]) Smoking 08/18/2020 12:00:00 AM EDT Current Smoker completed Curre nt Smoker eCW1 ([facility]) Smoking 06/30/2020 12:00:00 AM EDT Current Smoker completed Curre nt Smoker eCW1 ([facility]) Smoking 06/30/2020 12:00:00 AM EDT Current Smoker completed Curre nt Smoker eCW1 ([facility]) Smoking 06/30/2020 12:00:00 AM EDT Current Smoker completed Curre nt Smoker eCW1 ([facility]) Smoking 06/30/2020 12:00:00 AM EDT Current Smoker completed Curre nt Smoker eCW1 ([facility]) Smoking 06/30/2020 12:00:00 AM EDT Current Smoker completed Curre nt Smoker eCW1 ([facility]) Smoking 06/30/2020 12:00:00 AM EDT Current Smoker completed Curre nt Smoker eCW1 ([facility]) Smoking 06/30/2020 12:00:00 AM EDT Current Smoker completed Curre nt Smoker eCW1 ([facility]) Smoking 06/30/2020 12:00:00 AM EDT Current Smoker completed Curre nt Smoker eCW1 ([facility]) Smoking 06/30/2020 12:00:00 AM EDT Current Smoker completed Curre nt Smoker eCW1 ([facility]) Smoking 06/30/2020 12:00:00 AM EDT Current Smoker completed Curre nt Smoker eCW1 ([facility]) Smoking 06/30/2020 12:00:00 AM EDT Current Smoker completed Curre nt Smoker eCW1 ([facility]) Smoking 06/30/2020 12:00:00 AM EDT Current Smoker completed Curre nt Smoker eCW1 ([facility]) Smoking 06/30/2020 12:00:00 AM EDT Current Smoker completed Curre nt Smoker eCW1 ([facility]) Smoking 06/30/2020 12:00:00 AM EDT Current Smoker completed Curre nt Smoker eCW1 ([facility]) Smoking 06/30/2020 12:00:00 AM EDT Current Smoker completed Curre nt Smoker eCW1 ([facility]) Smoking 06/25/2020 12:00:00 AM EDT Current Smoker completed Curre nt Smoker eCW1 ([facility]) Vital Signs ID Date Data Source UNK Name Value Range Interpretation Code Description Data Source(s) Body weight 113 [lb_av] 113 [lb_av] eCW1 ([facility]) Body height [in_i] eCW1 ([facility]) Body mass index (BMI) [Ratio] 20.01 kg/m2 20.01 kg/m2 eCW1 ([facility]) Heart rate 96 /min 96 /min eCW1 ([facility]) Respiratory rate 18 /min 18 /min eCW1 ([facility]) Body temperature 97.2 [degF] 97.2 [degF] eCW1 ( [facility]) Systolic blood pressure 128 mm[Hg] 128 mm[Hg] e CW1 ([facility]) Diastolic blood pressure 60 mm[Hg] 60 mm[Hg] eCW1 ([facility]) Systolic blood pressure 130 mm[Hg] 130 mm[Hg] M EDENT ([facility], ) Diastolic blood pressure 80 mm[Hg] 80 mm[Hg] [facility] ([facility], ) Heart rate 102 /min 102 /min [facility] ([facility]) Oxygen saturation in Arterial blood by Pulse oximetry 94 % 94 % [facility] ([facility]) Body height 61.75 [in_i] 61.75 [in_i] [facility] ([facility]) 5'1.75" Body weight 116.00 [lb_av] 116.00 [lb_av] MED[facility] T ([facility]) Body mass index (BMI) [Ratio] 21.4 kg/m2 21.4 k g/m2 [facility] ([facility]) [place] body weight 105 [lb_av] 105 [lb_av] [facility] Body weight 52.618 kg 52.618 kg [facility] ([facility]) Body surface area Derived from formula 1.51 m2 1.51 m2 [facility] ([facility]) Body mass index (BMI) [Ratio] 20.7 kg/m2 20.7 k g/m2 [facility] ([facility] Systolic blood pressure 157 mm[Hg] 157 mm[Hg] [facility] Diastolic blood pressure 69 mm[Hg] 69 mm[Hg] [facility] ([facility] Systolic blood pressure 137 mm[Hg] 137 mm[Hg] [facility] Diastolic blood pressure 62 mm[Hg] 62 mm[Hg] [facility] ([facility] Heart rate 100 /min 100 /min [facility] ([facility] Body temperature 97.7 [degF] 97.7 [degF] [facility] ([facility] Respiratory rate 24 /min 24 /min [facility] ( [facility] Body height 63.0 [in_i] 63.0 [in_i] [facility] ([facility] 5'3" Body weight 117.00 [lb_av] 117.00 [lb_av] MED[facility] T ([facility] Oxygen saturation in Arterial blood by Pulse oximetry 98 % 98 % [facility] ([facility] [place] body weight 115 [lb_av] 115 [lb_av] [facility] ([facility] Systolic blood pressure 179 mm[Hg] 179 mm[Hg] M [facility] ([facility] Diastolic blood pressure 80 mm[Hg] 80 mm[Hg] [facility] ([facility] Systolic blood pressure 185 mm[Hg] 185 mm[Hg] M [facility] ([facility] 144/64 Diastolic blood pressure 72 mm[Hg] 72 mm[Hg] [facility] ([facility] 144/64 Heart rate 98 /min 98 /min [facility] ([facility] Body temperature 97.3 [degF] 97.3 [degF] [facility] ([facility] Respiratory rate 22 /min 22 /min [facility] ( [facility] Body height 63.0 [in_i] 63.0 [in_i] [facility] ([facility] 5'3" Body weight 120.38 [lb_av] 120.38 [lb_av] [facility] T ([facility] [place] body weight 115 [lb_av] 115 [lb_av] [facility] ([facility] Oxygen saturation in Arterial blood by Pulse oximetry 95 % 95 % [facility] ([facility] Body mass index (BMI) [Ratio] 21.3 kg/m2 21.3 k g/m2 [facility] ([facility] Systolic blood pressure 110 mm[Hg] 110 mm[Hg] [facility] Diastolic blood pressure 58 mm[Hg] 58 mm[Hg] [facility] ([facility]) Heart rate 90 /min 90 /min [facility] ([facility]) Oxygen saturation in Arterial blood by Pulse oximetry 91 % 91 % [facility] ([facility]) Body temperature 97.5 [degF] 97.5 [degF] [facility] ([facility]) Body height 61.75 [in_i] 61.75 [in_i] [facility] ([facility]) 5'1.75" Body weight 122.00 [lb_av] 122.00 [lb_av] MED[facility] T ([facility]) Body mass index (BMI) [Ratio] 22.5 kg/m2 22.5 k g/m2 [facility] ([facility]) [place] body weight 105 [lb_av] 105 [lb_av] [facility] T ([facility]) Body weight 55.339 kg 55.339 kg [facility] ([facility]) Body surface area Derived from formula 1.54 m2 1.54 m2 [facility] ([facility]) Systolic blood pressure 120 mm[Hg] 120 mm[Hg] [facility] ([facility]) Diastolic blood pressure 60 mm[Hg] 60 mm[Hg] [facility] ([facility]) Body height 61.75 [in_i] 61.75 [in_i] [facility] ([facility]) 5'1.75" Body weight 121.38 [lb_av] 121.38 [lb_av] MED[facility] T ([facility]) Body mass index (BMI) [Ratio] 22.4 kg/m2 22.4 k g/m2 [facility] ([facility]) [place] body weight 105 [lb_av] 105 [lb_av] [facility] T ([facility]) Body weight 55.056 kg 55.056 kg [facility] Systolic blood pressure 160 mm[Hg] 160 mm[Hg] M EDENT ([facility]) Diastolic blood pressure 70 mm[Hg] 70 mm[Hg] [facility] ([facility]) Body height 61.75 [in_i] 61.75 [in_i] [facility] ([facility]) 5'1.75" Body weight 118.12 [lb_av] 118.12 [lb_av] MED[facility] T ([facility]) Body mass index (BMI) [Ratio] 21.8 kg/m2 21.8 k g/m2 [facility] ([facility]) [place] body weight 105 [lb_av] 105 [lb_av] [facility] T ([facility]) Body weight 53.581 kg 53.581 kg [facility] ([facility]) Systolic blood pressure 140 mm[Hg] 140 mm[Hg] M EDENT ([facility] Diastolic blood pressure 58 mm[Hg] 58 mm[Hg] [facility] ([facility] Heart rate 100 /min 100 /min [facility] ([facility] Body temperature 97.7 [degF] 97.7 [degF] [facility] ([facility] Respiratory rate 18 /min 18 /min [facility] ( [facility] Body height 63.0 [in_i] 63.0 [in_i] [facility] ([facility] 5'3" Body weight 114.38 [lb_av] 114.38 [lb_av] [facility] T ([facility] Oxygen saturation in Arterial blood by Pulse oximetry 98 % 98 % [facility] ([facility] [place] body weight 115 [lb_av] 115 [lb_av] [facility] T ([facility] Body mass index (BMI) [Ratio] 20.3 kg/m2 20.3 k g/m2 [facility] ([facility] ID Date Data Source [id number] 06/15/2020 02:16:00 PM EDT [facility] Name Value Range Interpretation Code Description Data Source(s) WEIGHT 54 kilos 54 kilos [facility] HEIGHT 170.18 centimeters 170.18 centimeter [facility] WEIGHT 54.1 kilos 54.1 kilos [facility] HEIGHT 170.18 centimeters 170.18 centimeter [facility] WEIGHT 54.09 kilos 54.09 kilos [facility] HEIGHT 170.18 centimeters 170.18 centimeter [facility] ID Date Data Source [id number] 05/18/2020 04:36:50 PM EDT [facility] Name Value Range Interpretation Code Description Data Source(s) TRANSFER FROM [facility] ID Date Data Source [id number] 05/24/2020 12:50:00 PM EDT [facility] Name Value Range Interpretation Code Description Data Source(s) WEIGHT 55.[address] [facility] HEIGHT 160.02 centimeters 160.02 centimeter [facility] WEIGHT 55.[address] [facility] HEIGHT 160.02 centimeters 160.02 centimeter [facility] ID Date Data Source [id number] 09/21/2020 07:47:00 AM EDT [facility] Name Value Range Interpretation Code Description Data Source(s) WEIGHT [address] [facility] HEIGHT 160.02 centimeters 160.02 centimeter [facility] WEIGHT 55.[address] [facility] HEIGHT 160.02 centimeters 160.02 centimeter [facility] WEIGHT [address] [facility] HEIGHT 160.02 centimeters 160.02 centimeter [facility] WEIGHT 51.[address] [facility] HEIGHT 152.4 centimeters 152.4 centimeters [facility] ID Date Data Source [id number] 05/16/2020 08:13:00 PM EDT [facility] Name Value Range Interpretation Code Description Data Source(s) WEIGHT [address] [facility] ID Date Data Source [id number] 05/16/2020 08:13:00 PM EDT [facility] Name Value Range Interpretation Code Description Data Source(s) WEIGHT 56.532766 kilos 56.902554 [facility] HEIGHT 160.02 centimeters 160.02 centimeter [facility] ID Date Data Source [id number] 05/16/2020 08:13:00 PM EDT [facility] Name Value Range Interpretation Code Description Data Source(s) WEIGHT [address] [facility] HEIGHT 160.02 centimeters 160.02 centimeter [facility] Patient Treatment Plan of Care Planned Activity Planned Date Details Description Data Source (s) Nicotine 7 MG/24HR 07/28/2020 12:00:00 AM EDT eCW1 ([facility]) Nicotine 7 MG/24HR 07/28/2020 12:00:00 AM EDT eCW1 ([facility]) Nicotine 7 MG/24HR 07/28/2020 12:00:00 AM EDT eCW1 ([facility]) Nicotine 7 MG/24HR 07/28/2020 12:00:00 AM EDT eCW1 ([facility]) Nicotine 7 MG/24HR 07/28/2020 12:00:00 AM EDT eCW1 ([facility]) Optifoam 4"X4" 07/18/2020 12:00:00 AM EDT eCW1 ([facility]) Optifoam 4"X4" 07/18/2020 12:00:00 AM EDT eCW1 ([facility]) Optifoam 4"X4" 07/18/2020 12:00:00 AM EDT eCW1 ([facility]) Optifoam 4"X4" 07/18/2020 12:00:00 AM EDT eCW1 ([facility]) Optifoam 4"X4" 07/18/2020 12:00:00 AM EDT eCW1 ([facility]) Optifoam 4"X4" 07/18/2020 12:00:00 AM EDT eCW1 ([facility]) Optifoam 4"X4" 07/18/2020 12:00:00 AM EDT eCW1 ([facility]) Acetaminophen 325 MG / Hydrocodone Bitartrate 5 MG Ora l Tablet 06/23/2020 12:00:00 AM EDT eCW1 ([facility]) gabapentin 100 MG Oral Capsule 06/23/2020 12:00:00 AM EDT eCW1 ([facility]) Metformin hydrochloride 500 MG Oral Tablet 06/23/2020 12:00:00 AM E DT eCW1 ([facility]) HM Lidocaine Patch 4 % 06/23/2020 12:00:00 AM EDT eCW1 ([facility]) Alendronic acid 70 MG Oral Tablet 06/23/2020 12:00:00 AM EDT eCW1 ([facility]) Acetaminophen 325 MG / Hydrocodone Bitartrate 5 MG Ora l Tablet 06/23/2020 12:00:00 AM EDT eCW1 ([facility]) gabapentin 100 MG Oral Capsule 06/23/2020 12:00:00 AM EDT eCW1 ([facility]) Metformin hydrochloride 500 MG Oral Tablet 06/23/2020 12:00:00 AM E DT eCW1 ([facility]) HM Lidocaine Patch 4 % 06/23/2020 12:00:00 AM EDT eCW1 ([facility]) Alendronic acid 70 MG Oral Tablet 06/23/2020 12:00:00 AM EDT eCW1 ([facility]) Acetaminophen 325 MG / Hydrocodone Bitartrate 5 MG Ora l Tablet 06/23/2020 12:00:00 AM EDT eCW1 ([facility]) gabapentin 100 MG Oral Capsule 06/23/2020 12:00:00 AM EDT eCW1 ([facility]) Metformin hydrochloride 500 MG Oral Tablet 06/23/2020 12:00:00 AM E DT eCW1 ([facility]) HM Lidocaine Patch 4 % 06/23/2020 12:00:00 AM EDT eCW1 ([facility]) Alendronic acid 70 MG Oral Tablet 06/23/2020 12:00:00 AM EDT eCW1 ([facility]) Acetaminophen 325 MG / Hydrocodone Bitartrate 5 MG Ora l Tablet 06/23/2020 12:00:00 AM EDT eCW1 ([facility]) gabapentin 100 MG Oral Capsule 06/23/2020 12:00:00 AM EDT eCW1 ([facility]) Metformin hydrochloride 500 MG Oral Tablet 06/23/2020 12:00:00 AM E DT eCW1 ([facility]) HM Lidocaine Patch 4 % 06/23/2020 12:00:00 AM EDT eCW1 ([facility]) Alendronic acid 70 MG Oral Tablet 06/23/2020 12:00:00 AM EDT eCW1 ([facility]) Metformin hydrochloride 500 MG Oral Tablet 06/23/2020 12:00:00 AM E DT eCW1 ([facility]) Acetaminophen 325 MG / Hydrocodone Bitartrate 5 MG Ora l Tablet 06/23/2020 12:00:00 AM EDT eCW1 ([facility]) gabapentin 100 MG Oral Capsule 06/23/2020 12:00:00 AM EDT eCW1 ([facility]) HM Lidocaine Patch 4 % 06/23/2020 12:00:00 AM EDT eCW1 ([facility]) Alendronic acid 70 MG Oral Tablet 06/23/2020 12:00:00 AM EDT eCW1 ([facility]) Metformin hydrochloride 500 MG Oral Tablet 06/23/2020 12:00:00 AM E DT eCW1 ([facility]) Acetaminophen 325 MG / Hydrocodone Bitartrate 5 MG Ora l Tablet 06/23/2020 12:00:00 AM EDT eCW1 ([facility]) gabapentin 100 MG Oral Capsule 06/23/2020 12:00:00 AM EDT eCW1 ([facility]) HM Lidocaine Patch 4 % 06/23/2020 12:00:00 AM EDT eCW1 ([facility]) Alendronic acid 70 MG Oral Tablet 06/23/2020 12:00:00 AM EDT eCW1 ([facility]) Metformin hydrochloride 500 MG Oral Tablet 06/23/2020 12:00:00 AM E DT eCW1 ([facility]) Acetaminophen 325 MG / Hydrocodone Bitartrate 5 MG Ora l Tablet 06/23/2020 12:00:00 AM EDT eCW1 ([facility]) gabapentin 100 MG Oral Capsule 06/23/2020 12:00:00 AM EDT eCW1 ([facility]) HM Lidocaine Patch 4 % 06/23/2020 12:00:00 AM EDT eCW1 ([facility]) Acetaminophen 325 MG / Hydrocodone Bitartrate 5 MG Ora l Tablet 06/23/2020 12:00:00 AM EDT eCW1 ([facility]) gabapentin 100 MG Oral Capsule 06/23/2020 12:00:00 AM EDT eCW1 ([facility]) Metformin hydrochloride 500 MG Oral Tablet 06/23/2020 12:00:00 AM E DT eCW1 ([facility]) HM Lidocaine Patch 4 % 06/23/2020 12:00:00 AM EDT eCW1 ([facility]) Alendronic acid 70 MG Oral Tablet 06/23/2020 12:00:00 AM EDT eCW1 ([facility]) Alendronic acid 70 MG Oral Tablet 06/23/2020 12:00:00 AM EDT eCW1 ([facility]) Metformin hydrochloride 500 MG Oral Tablet 06/23/2020 12:00:00 AM E DT eCW1 ([facility]) Acetaminophen 325 MG / Hydrocodone Bitartrate 5 MG Ora l Tablet 06/23/2020 12:00:00 AM EDT eCW1 ([facility]) gabapentin 100 MG Oral Capsule 06/23/2020 12:00:00 AM EDT eCW1 ([facility]) HM Lidocaine Patch 4 % 06/23/2020 12:00:00 AM EDT eCW1 ([facility]) Alendronic acid 70 MG Oral Tablet 06/23/2020 12:00:00 AM EDT eCW1 ([facility]) Alendronic acid 70 MG Oral Tablet 06/23/2020 12:00:00 AM EDT eCW1 ([facility]) Metformin hydrochloride 500 MG Oral Tablet 06/23/2020 12:00:00 AM E DT eCW1 ([facility]) Acetaminophen 325 MG / Hydrocodone Bitartrate 5 MG Ora l Tablet 06/23/2020 12:00:00 AM EDT eCW1 ([facility]) gabapentin 100 MG Oral Capsule 06/23/2020 12:00:00 AM EDT eCW1 ([facility]) HM Lidocaine Patch 4 % 06/23/2020 12:00:00 AM EDT eCW1 ([facility]) Alendronic acid 70 MG Oral Tablet 06/23/2020 12:00:00 AM EDT eCW1 ([facility]) Metformin hydrochloride 500 MG Oral Tablet 06/23/2020 12:00:00 AM E DT eCW1 ([facility]) Acetaminophen 325 MG / Hydrocodone Bitartrate 5 MG Ora l Tablet 06/23/2020 12:00:00 AM EDT eCW1 ([facility]) gabapentin 100 MG Oral Capsule 06/23/2020 12:00:00 AM EDT eCW1 ([facility]) HM Lidocaine Patch 4 % 06/23/2020 12:00:00 AM EDT eCW1 ([facility]) Alendronic acid 70 MG Oral Tablet 06/23/2020 12:00:00 AM EDT eCW1 ([facility]) Acetaminophen 325 MG / Hydrocodone Bitartrate 5 MG Ora l Tablet 06/23/2020 12:00:00 AM EDT eCW1 ([facility]) HM Lidocaine Patch 4 % 06/23/2020 12:00:00 AM EDT eCW1 ([facility]) gabapentin 100 MG Oral Capsule 06/23/2020 12:00:00 AM EDT eCW1 ([facility]) Metformin hydrochloride 500 MG Oral Tablet 06/23/2020 12:00:00 AM E DT eCW1 ([facility]) Alendronic acid 70 MG Oral Tablet 06/23/2020 12:00:00 AM EDT eCW1 ([facility]) Metformin hydrochloride 500 MG Oral Tablet 06/23/2020 12:00:00 AM E DT eCW1 ([facility]) Acetaminophen 325 MG / Hydrocodone Bitartrate 5 MG Ora l Tablet 06/23/2020 12:00:00 AM EDT eCW1 ([facility]) gabapentin 100 MG Oral Capsule 06/23/2020 12:00:00 AM EDT eCW1 ([facility]) HM Lidocaine Patch 4 % 06/23/2020 12:00:00 AM EDT eCW1 ([facility]) Alendronic acid 70 MG Oral Tablet 06/23/2020 12:00:00 AM EDT eCW1 ([facility]) Metformin hydrochloride 500 MG Oral Tablet 06/23/2020 12:00:00 AM E DT eCW1 ([facility]) Acetaminophen 325 MG / Hydrocodone Bitartrate 5 MG Ora l Tablet 06/23/2020 12:00:00 AM EDT eCW1 ([facility]) gabapentin 100 MG Oral Capsule 06/23/2020 12:00:00 AM EDT eCW1 ([facility]) HM Lidocaine Patch 4 % 06/23/2020 12:00:00 AM EDT eCW1 ([facility]) Alendronic acid 70 MG Oral Tablet 06/23/2020 12:00:00 AM EDT eCW1 ([facility]) Metformin hydrochloride 500 MG Oral Tablet 06/23/2020 12:00:00 AM E DT eCW1 ([facility]) Acetaminophen 325 MG / Hydrocodone Bitartrate 5 MG Ora l Tablet 06/23/2020 12:00:00 AM EDT eCW1 ([facility]) gabapentin 100 MG Oral Capsule 06/23/2020 12:00:00 AM EDT eCW1 ([facility]) HM Lidocaine Patch 4 % 06/23/2020 12:00:00 AM EDT eCW1 ([facility]) Alendronic acid 70 MG Oral Tablet 06/23/2020 12:00:00 AM EDT eCW1 ([facility]) Metformin hydrochloride 500 MG Oral Tablet 06/23/2020 12:00:00 AM E DT eCW1 ([facility]) Acetaminophen 325 MG / Hydrocodone Bitartrate 5 MG Ora l Tablet 06/23/2020 12:00:00 AM EDT eCW1 ([facility]) gabapentin 100 MG Oral Capsule 06/23/2020 12:00:00 AM EDT eCW1 ([facility]) HM Lidocaine Patch 4 % 06/23/2020 12:00:00 AM EDT eCW1 ([facility])
[2020-11-28] MEDS ORDERED: methylPREDNISolone 125MG 2ML VIAL IV SCH (13:45)
[2020-11-28] MEDS ORDERED: ACETAMINOPHEN TAB 650MG DOSE (2X325MG) PO PRN (13:45)
[2020-11-28 13:50] VITALS: BP 182/86
[2020-11-28] MEDS ORDERED: IPRATROPIUM 0.5MG/ALBUTEROL 2.5MG INH SOL UD 3ML (DUONEB) NEB SCH (14:00)
[2020-11-28] MEDS ORDERED: ALBUTEROL SULFATE 2.5 MG/0.5 ML INH NEB SOLN NEB PRN (14:00)
[2020-11-28] MEDS ORDERED: hydrALAZINE 20MG/ML 1ML VIAL (J0360 PER 20MG) IV PRN (14:10)
--- NOTE | 2020-11-28 14:11 | HPEPDOC ---
General Date of Admission 11/28/20 Date of Service: Nov 28, 2020 Chief Complaint The patient is a 75-year-old female admitted with a reason for visit of Diff Breathing. Source: Patient Exam Limitations: No limitations History of Present Illness Patient is 75 years old female with past medical history of chronic back pain, diastolic CHF, COPD/emphysema on the home oxygen 4 L at baseline presented to hospital with increased shortness of breath. Of note patient continues smoking. Patient stated that she has been having increased shortness of breath associated with some leg swelling for past few days. She denied fever, chills, nausea, vomiting chest pain palpitations diarrhea or dysuria. In ER patient was found to have increased systolic blood pressure to 200/90, leukocytosis of 12, hemoglobin 10.2, troponin 0,05, BNP 82115, TSH of 7. Chest x-ray shows Pleural and parenchymal opacity superiorly on the right is stable. There is bibasilar interstitial opacity which is mildly improved in the right base Home Medications Scheduled Amlodipine Besylate (Amlodipine Besylate) 10 Mg Tablet, 10 MG PO QPM, (Reported) TAKES AT 1700 Atorvastatin Calcium (Atorvastatin Calcium) 40 Mg Tablet, 40 MG PO QHS, (Reported) Clopidogrel Bisulfate (Plavix) 75 Mg Tablet, 75 MG PO DAILY, (Reported) Duloxetine Hcl (Duloxetine HCl) 60 Mg Capsule.dr, 60 MG PO DAILY, (Reported) Fluticasone/Vilanterol (Breo Ellipta 200-25 Mcg INH) 1 Each Blst.w.dev, 1 PUFF INH DAILY, (Reported) Gabapentin (Gabapentin) 100 Mg Capsule, 100 MG PO QHS, (Reported) Hydralazine HCl (Hydralazine HCl) 50 Mg Tablet, 50 MG PO BID, (Reported) 0800, 1700 Insulin Detemir (Levemir) 100 Unit/1 Ml Vial, 20 UNITS SC DAILY, (Reported) TAKES AT 1500 Levothyroxine Sodium (Synthroid) 75 Mcg Tablet, 75 MCG PO DAILY, (Reported) Lisinopril (Lisinopril) 20 Mg Tablet, 20 MG PO BID, (Reported) 0800, 1700 Metformin HCl (Metformin HCl) 500 Mg Tablet, 500 MG PO BID, (Reported) 0800, 1700 Prednisone (Prednisone) 20 Mg Tablet, 40 MG PO DAILY PRednisone taper: 40 mg PO x 2 days, 20 mg PO x 3 days, 10 mg Po x 2 days Scheduled PRN Acetaminophen (Acetaminophen) 500 Mg Tablet, 500 MG PO Q6H PRN for PAIN LEVEL 1- 4, (Reported) Albuterol Sulfate (Proair Hfa) 8.5 Gm Hfa.aer.ad, 2 PUFF INH QID PRN for SHORT NESS OF BREATH, (Reported) Hydroxyzine HCl (Hydroxyzine HCl) 10 Mg Tablet, 10 MG PO Q8H PRN for ANXIETY, (Reported) Allergies Coded Allergies: Sulfa (Sulfonamide Antibiotics) (Verified Allergy, Mild, RASH, 10/07/20) bacitracin (Verified Allergy, Mild, RASH, 10/07/20) cortisone (Verified Allergy, Mild, RASH, 10/07/20) neomycin (Verified Allergy, Mild, RASH, 10/07/20) polymyxin B (Verified Allergy, Mild, RASH, 10/07/20) red dye (Unverified Allergy, Mild, rash OCCURRED ONCE WITH CAPSULE MED NO OTHER PROBLEMS WIT, 10/07/20) fluoxetine (Unverified Allergy, Unknown, 10/07/20) tramadol (Unverified Allergy, Unknown, 10/07/20) HAS HAD OXYCODONE BEFORE WITHOUT ISSUE Past Medical History Medical History 1. Chronic back pain 2. L4 compression 3. Spinal stenosis 4. Peripheral vascular disease s/p right LE angioplasty with stenting 5. Stage 3 CKD 6. Bladder cancer 7. Severe COPD/emphysema 8. Dyslipidemia 9. Insulin-dependent diabetes mellitus 10. Hypothyroidism 11. Hypertension 12. CHF 13. Right upper lobe lung mass 14. Anxiety/depression Surgical History 1. Hysterectomy 2. Vaginal tumor removal 3. Bilateral leg stents 4. Lung mass removed 5. Bilateral cataract surgery Family History I personally reviewed family history and found not pertinent Social History * Smoker: current smoker Alcohol: Denies Drugs: denies A-FIB/CHADSVASC A-FIB History Current/History of A-Fib/PAF?: No Current PO Anticoag Therapy: No Review of Systems Constitutional: Denies: Fever Eyes: Denies: Pain ENT: Denies: Head Aches Skin: Denies: Rash, Lesions Pulmonary: Reports: Dyspnea Cardiovascular: Denies: Chest Pain Gastrointestinal: Denies: Nausea Genitourinary: Denies: Dysuria Hematologic: Denies: Bruising Endocrine: Denies: Polydipsia Neurological: Denies: Weakness Psych: Reports: Mood Normal Physical Examination General Exam: Positive: Alert, Cooperative Eye Exam: Positive: PERRLA ENT Exam: Positive: Atraumatic Neck Exam: Positive: Supple, JVD Chest Exam: Positive: Rales, Diminished Heart Exam: Positive: Rate Normal Abdomen Exam: Positive: Normal bowel sounds Extremity Exam: Negative: Cyanosis Skin Exam: Positive: Nl turgor and temperature Neuro Exam: Positive: Cranial Nerves 3-12 NL Psych Exam: Positive: Oriented x 3 Vital Signs Vital Signs Date Time Temp Pulse Resp B/P (MAP) Pulse Ox O2 Delivery O2 Flow Rate FiO2 11/28/20 13:05 99 100 11/28/20 12:00 98.8 24 196/73 (114) Nasal Cannula 4.0 Laboratory Data Labs 24H Laboratory Tests 2 11/28/20 09:18: Immature Granulocyte % (Auto) 0.6, Neutrophils (%) (Auto) 82.9H, Lymphocytes (%) (Auto) 8.4L, Monocytes (%) (Auto) 5.6, Eosinophils (%) (Auto) 2.1, Basophils (%) (Auto) 0.4, Neutrophils # (Auto) 10.0H, Lymphocytes # (Auto) 1.0L, Monocytes # (Auto) 0.7, Eosinophils # (Auto) 0.3, Basophils # (Auto) 0.1, Nucleated Red Blood Cells % (auto) 0.0, Blood Gas Bicarbonate Standard 26.8, Venous Blood pH 7.420, Venous Blood Partial Pressure CO2 43.6, Venous Blood Partial Pressure O2 61.0H, Venous Blood Total Carbon Dioxide 29.0H, Venous Blood HCO3 27.6H, Venous Blood Oxygen Saturation 90.5H, Venous Blood Base Excess 2.8H, Anion Gap 5L, Glomerular Filtration Rate > 60.0, Lactic Acid Level 0.8, Calcium Level 8.4L, Total Bilirubin 0.2, Direct Bilirubin < 0.1, Aspartate Amino Transf (AST/SGOT) 18, Alanine Aminotransferase (ALT/SGPT) 22, Alkaline Phosphatase 93, Total Creatine Kinase 65, Creatine Kinase MB 4.1H, Creatine Kinase MB Relative Index 6.31H, Troponin I 0.05, QH-Lfm-I-Type Natriuretic Peptide 62475P, Total Protein 5.3L, Albumin 2.4L, Albumin/Globulin Ratio 0.8L, Thyroid Stimulating Hormone (TSH) 7.060H CBC/BMP Laboratory Tests 11/28/20 09:18 Microbiology Microbiology 11/28/20 Blood Culture, Received Pending 11/28/20 Respiratory Virus Panel (PCR) (SANDRA) - Final, Complete 11/28/20 Blood Culture, Received Pending Assessment/Plan Patient is 75 years old female with past medical history of chronic back pain, diastolic CHF, COPD/emphysema on the home oxygen 4 L at baseline presented to hospital with increased shortness of breath. Of note patient continues smoking. Patient stated that she has been having increased shortness of breath associated with some leg swelling for past few days. She denied fever, chills, nausea, vomiting chest pain palpitations diarrhea or dysuria. In ER patient was found to have increased systolic blood pressure to 200/90, leukocytosis of 12, hemoglobin 10.2, troponin 0,05, BNP 78165, TSH of 7. Chest x-ray shows Pleural and parenchymal opacity superiorly on the right is stable. There is bibasilar interstitial opacity which is mildly improved in the right base Problems (1) Dyspnea on minimal exertion Status: Acute Problem Text: Multifactorial secondary to COPD exacerbation superimposed with CHF exacerbation Continue oxygen supplementation Continue inhalers Prednisone 40 mg p.o. daily Incentive spirometry (2) Acute diastolic CHF (congestive heart failure) Status: Acute Problem Text: [place] [address] with plus JVD Lasix IV I's and O's Cardiac diet (3) Physical deconditioning Status: Chronic Problem Text: PT/OT (4) Anxiety and depression Status: Chronic Problem Text: Continue home meds (5) Hyperlipidemia Status: Chronic Problem Text: Continue statin (6) Tobacco abuse Status: Chronic Problem Text: Intensive counseling Nicotine patch (7) Diabetes mellitus Problem Text: Insulin sliding scale Detemir twice daily (8) Elevated troponin Status: Acute Problem Text: Will repeat troponin Patient denied chest pain, palpitations EKG negative for acute ischemic changes (9) Hypertensive urgency Status: Acute Problem Text: Hydralazine IV as needed every 1 hour Continue home meds Plan / VTE VTE Prophylaxis Ordered?: Yes LAVINIA STEWART DO Nov 28, 2020 14:11
[2020-11-28] MEDS ORDERED: DEXTROSE 50% 50 ML SYRINGE IV PRN (14:15)
[2020-11-28] MEDS ORDERED: GLUCAGON INJ 1MG VIAL SC PRN (14:15)
[2020-11-28] MEDS ORDERED: GLUCOSE 4GM CHEW TABLET PO PRN (14:15)
[2020-11-28] MEDS ORDERED: HOME MED LIST COMPLETE! XX SCH (14:25)
[2020-11-28] MEDS ORDERED: hydrOXYzine 10 MG TAB PO PRN (14:40)
[2020-11-28] MEDS ORDERED: FUROSEMIDE 40MG/4ML VIAL (J1940) IV SCH (16:00)
[2020-11-28] MEDS ORDERED: HumaLOG INSULIN (NovoLOG) PER UNIT SC SCH ×2 (17:30→21:00)
[2020-11-28] MEDS ORDERED: ADVAIR HFA 230/21MCG INHALER INH SCH (20:00)
[2020-11-28] MEDS ORDERED: HEPARIN SOD (PORCINE) 5000UNITS/ML 1ML VIAL/SYRINGE SC SCH (21:00)
[2020-11-28] MEDS ORDERED: ATORVASTATIN 20 MG TAB PO SCH (21:00)
[2020-11-28] MEDS ORDERED: LEVEMIR (INSULIN DETEMIR) 1 UNITS/0.01ML SC SCH (21:00)
[2020-11-28] MEDS ORDERED: **hydrALAZINE** 50 MG TAB PO SCH (21:00)
[2020-11-28] MEDS ORDERED: GABAPENTIN 100 MG CAP PO SCH (21:00)
[2020-11-29] MEDS ORDERED: LEVOTHYROXINE 75MCG TABLET (0.075MG) PO SCH (06:00)
[2020-11-29] MEDS ORDERED: predniSONE 20 MG TAB PO SCH (09:00)
--- NOTE | 2020-11-29 13:27 | ECGEPIP ---
[facility] - ED Test Date: 2020-11-28 Pat Name: ELA LIVINGSTON Department: Room: - Gender: Female Vamp Marker: ARGENISMICHAELBRITTANIE : 1945 Requested By: Tika Ortega Order Number: [id number] Reading MD: Tika Ortega Measurements Intervals [place] Rate: 88 P: -14 IA: 134 QRS: 16 QRSD: 116 T: -62 QT: 394 QTc: 476 Interpretive Statements Normal sinus rhythm Left ventricular hypertrophy with QRS widening and repolarization abnormality ( [place] product ) NSTTW abnormalities ST elevation, consider anterior injury or acute infarct poor baseline limits interpretation Electronically Signed on 11-29-2020 13:27:08 EDT by Tika Ortega
--- NOTE | 2020-11-29 16:48 | DS.PDOC ---
Discharge Summary General Date of Admission Nov 28, 2020 at 14:08 Date of Discharge 11/28/20 Discharge Summary PROCEDURES PERFORMED DURING STAY: [None]. ADMITTING DIAGNOSES: Dyspnea on minimal exertion Acute diastolic CHF (congestive heart failure) Physical deconditioning Anxiety and depression Hyperlipidemia Tobacco abuse Diabetes mellitus Elevated troponin Hypertensive urgency DISCHARGE DIAGNOSES: Dyspnea on minimal exertion Acute diastolic CHF (congestive heart failure) Physical deconditioning Anxiety and depression Hyperlipidemia Tobacco abuse Diabetes mellitus Elevated troponin Hypertensive urgency COMPLICATIONS/CHIEF COMPLAINT: Dyspnea. HISTORY OF PRESENT ILLNESS: Patient is 75 years old female with past medical history of chronic back pain, diastolic CHF, COPD/emphysema on the home oxygen 4 L at baseline presented to hospital with increased shortness of breath. Of note patient continues smoking. Patient stated that she has been having increased shortness of breath associated with some leg swelling for past few days. She denied fever, chills, nausea, vomiting chest pain palpitations diarrhea or dysuria. In ER patient was found to have increased systolic blood pressure to 200/90, leukocytosis of 12, hemoglobin 10.2, troponin 0,05, BNP 17152, TSH of 7. Chest x-ray shows Pleural and parenchymal opacity superiorly on the right is stable. There is bibasilar interstitial opacity which is mildly improved in the right base HOSPITAL COURSE: I was informed that patient signed AMA form around 2 PM DISCHARGE MEDICATIONS: Please see below. ALLERGIES: Please see below. PHYSICAL EXAMINATION ON DISCHARGE: VITAL SIGNS: Please see below. GENERAL: HEENT: NECK: CARDIOVASCULAR EXAMINATION: RESPIRATORY EXAMINATION: ABDOMINAL EXAMINATION: EXTREMITIES: SKIN: NEUROLOGICAL EXAMINATION: PSYCHIATRIC EXAMINATION: LABORATORY DATA: Please see below. IMAGING: PROGNOSIS: ACTIVITY: [As tolerated]. DIET: DISCHARGE PLAN: DISPOSITION: . DISCHARGE INSTRUCTIONS: 1. . ITEMS TO FOLLOWUP ON ON OUTPATIENT: 1. . DISCHARGE CONDITION: [Stable]. TIME SPENT ON DISCHARGE: minutes. Vital Signs/I&Os Vital Signs Date Time Temp Pulse Resp B/P (MAP) Pulse Ox O2 Delivery O2 Flow Rate FiO2 11/28/20 13:50 98.6 104 24 182/86 (118) 98 Nasal Cannula 4.0 Microbiology Microbiology 11/28/20 Blood Culture - Preliminary, Resulted No growth after 24 hours . All specim... 11/28/20 Respiratory Virus Panel (PCR) (SANDRA) - Final, Complete 11/28/20 Blood Culture - Preliminary, Resulted No growth after 24 hours . All specim... Discharge Medications Scheduled Amlodipine Besylate (Amlodipine Besylate) 10 Mg Tablet, 10 MG PO QPM, (Reported) TAKES AT 1700 Atorvastatin Calcium (Atorvastatin Calcium) 40 Mg Tablet, 40 MG PO QHS, (Reported) Clopidogrel Bisulfate (Plavix) 75 Mg Tablet, 75 MG PO DAILY, (Reported) Duloxetine Hcl (Duloxetine HCl) 60 Mg Capsule.dr, 60 MG PO DAILY, (Reported) Fluticasone/Vilanterol (Breo Ellipta 200-25 Mcg INH) 1 Each Blst.w.dev, 1 PUFF INH DAILY, (Reported) Gabapentin (Gabapentin) 100 Mg Capsule, 100 MG PO QHS, (Reported) Hydralazine HCl (Hydralazine HCl) 50 Mg Tablet, 50 MG PO BID, (Reported) 0800, 1700 Insulin Detemir (Levemir) 100 Unit/1 Ml Vial, 20 UNITS SC DAILY, (Reported) TAKES AT 1500 Levothyroxine Sodium (Synthroid) 75 Mcg Tablet, 75 MCG PO DAILY, (Reported) Lisinopril (Lisinopril) 20 Mg Tablet, 20 MG PO BID, (Reported) 0800, 1700 Metformin HCl (Metformin HCl) 500 Mg Tablet, 500 MG PO BID, (Reported) 0800, 1700 Scheduled PRN Hydroxyzine HCl (Hydroxyzine HCl) 10 Mg Tablet, 10 MG PO Q8H PRN for ANXIETY, (Reported) Allergies Coded Allergies: Sulfa (Sulfonamide Antibiotics) (Verified Allergy, Mild, RASH, 10/07/20) bacitracin (Verified Allergy, Mild, RASH, 10/07/20) cortisone (Verified Allergy, Mild, RASH, 10/07/20) neomycin (Verified Allergy, Mild, RASH, 10/07/20) polymyxin B (Verified Allergy, Mild, RASH, 10/07/20) red dye (Unverified Allergy, Mild, rash OCCURRED ONCE WITH CAPSULE MED NO OTHER PROBLEMS WIT, 10/07/20) fluoxetine (Unverified Allergy, Unknown, 10/07/20) tramadol (Unverified Allergy, Unknown, 10/07/20) HAS HAD OXYCODONE BEFORE WITHOUT ISSUE LAVINIA STEWART DO Nov 29, 2020 16:48
== END 2020-11-28 15:01 | disposition home or self-care (01) | DRG 291 ==
LOC: EDBD 08:50 → M ED 08:50 → M ED INP 14:08 → ENRESERV 14:54
PROVIDERS: ADMIT Internal Medicine; ATTEND Internal Medicine
DX: I13.0 Hypertensive heart and chronic kidney disease with heart failure and stage 1 through stage 4 chronic kidney disease, or unspecified chronic kidney disease (principal); I50.33 Acute on chronic diastolic (congestive) heart failure; J44.1 Chronic obstructive pulmonary disease with (acute) exacerbation; N18.30 Chronic kidney disease, stage 3 unspecified; I16.0 Hypertensive urgency; F41.9 Anxiety disorder, unspecified; F32.9 Major depressive disorder, single episode, unspecified; E78.5 Hyperlipidemia, unspecified; Z79.4 Long term (current) use of insulin; Z79.899 Other long term (current) drug therapy; Z88.2 Allergy status to sulfonamides; Z88.8 Allergy status to other drugs, medicaments and biological substances; F17.200 Nicotine dependence, unspecified, uncomplicated; E11.42 Type 2 diabetes mellitus with diabetic polyneuropathy; Z85.51 Personal history of malignant neoplasm of bladder; E03.9 Hypothyroidism, unspecified

== ENCOUNTER 2020-11-30 13:07 | Inpatient (IN) | payer MEDICARE ==
[~2020-11-30] VITALS: Ht 160 cm; Wt 56.8 kg
[2020-11-30 13:52] LABS: BASO # 0.1 10^3/uL (0.0-0.2); BASO % 0.3 % (0.0-1.0); EOS # 0.2 10^3/uL (0.0-0.5); EOS % 1.4 % (0.0-3.0); HEMATOCRIT 31.1 % (36.0-47.0); HEMOGLOBIN 9.8 g/dl (12.0-15.5); LYMPH # 0.6 10^3/uL (1.5-5.0); LYMPH % 3.8 % (24.0-44.0); MEAN CORPUSCULAR HEMOGLOBIN 31.5 pg (27.0-33.0); MEAN CORPUSCULAR HGB CONC 31.5 g/dl (32.0-36.5); MONO # 0.3 10^3/uL (0.0-0.8); MONO % 2.2 % (2.0-8.0); NEUTROPHILS # 13.9 10^3/uL (1.5-8.5); NEUTROPHILS % 91.8 % (36.0-66.0); PLATELET COUNT, AUTOMATED 192 10^3/uL (150-450); RED BLOOD COUNT 3.11 10^6/uL (4.00-5.40); WHITE BLOOD COUNT 15.1 10^3/uL (4.0-10.0)
--- NOTE | 2020-11-30 14:12 | REP ---
INDICATION: DYSPNEA/COUGH. COMPARISON: 11/28/2020. TECHNIQUE: Single portable AP view of the chest was performed. FINDINGS: Focal pleural thickening superiorly on the right is unchanged. Diffuse interstitial opacities in the right lung as well as in the left lower lung are stable. The heart and mediastinum are unchanged. IMPRESSION: Stable exam. <Electronically signed by Boy Barrios > 11/30/20 [id number]
[2020-11-30 14:27] LABS: ALBUMIN 2.5 GM/DL (3.2-5.2); ALT/SGPT 31 U/L (12-78); BILIRUBIN,DIRECT < 0.1 MG/DL (0.0-0.2); BILIRUBIN,TOTAL 0.3 MG/DL (0.2-1.0); BLOOD UREA NITROGEN 25 MG/DL (7-18); CALCIUM LEVEL 8.2 MG/DL (8.8-10.2); CARBON DIOXIDE LEVEL 31 MEQ/L (21-32); CHLORIDE LEVEL 106 MEQ/L (98-107); CK-MB VALUE MASS 4.2 NG/ML (<3.6); CPK CREATINE PHOSPHOKINASE 59 U/L (26-192); GLOMERULAR FILTRATION RATE 51.5 (>39); GLUCOSE, FASTING 474 MG/DL (70-100); MB/CK RELATIVE INDEX 7.12 (< OR =4); POTASSIUM SERUM 4.6 MEQ/L (3.5-5.1); SODIUM LEVEL 142 MEQ/L (136-145); TOTAL PROTEIN 5.6 GM/DL (6.4-8.2); TROPONIN I 0.04 NG/ML (< 0.10)
[2020-11-30 14:34] LABS: RSV AMPLIFICATION NEGATIVE (NEGATIVE)
[2020-11-30 14:45] VITALS: BP 188/83
[2020-11-30] MEDS ORDERED: methylPREDNISolone 125MG 2ML VIAL IV ONE (15:25)
[2020-11-30] MEDS: COMBIVENT RESPIMAT 100-20MCG INHALER 4GM INH SCH ×3 (15:25→16:16)
[2020-11-30] MEDS ORDERED: MED REC COMMENT (16:04)
[2020-11-30] MEDS ORDERED: HOME MED LIST COMPLETE! XX SCH (16:10)
[2020-11-30] MEDS ORDERED: IPRATROPIUM 0.5MG/ALBUTEROL 2.5MG INH SOL UD 3ML (DUONEB) NEB PRN (16:15)
[2020-11-30] MEDS ORDERED: GLUCAGON INJ 1MG VIAL SC PRN (16:15)
[2020-11-30] MEDS ORDERED: GLUCOSE 4GM CHEW TABLET PO PRN (16:15)
[2020-11-30] MEDS ORDERED: DEXTROSE 50% 50 ML SYRINGE IV PRN (16:15)
[2020-11-30] MEDS ORDERED: hydrOXYzine 10 MG TAB PO PRN (16:15)
--- OUTSIDE RECORDS SUMMARY | 2020-11-30 16:27 | CCD ---
Author Author [facility] Organization [facility] Address Unknown Phone Unavailable Care Team Providers Care Dewaxer Name Role Phone Es Mcclain Unavailable PROBLEMS Type Condition ICD9-CM Code [id number] Code Onset Dates Condition S tatus W/U Status Risk SNOMED Code Notes Problem Bladder tumor D49.4 Active confirmed 091805 006 Problem Bladder mass N32.89 Active confirmed 3234283 04 Problem Bladder cancer C67.9 Active confirmed 65043 6009 Problem Preop testing Z01.818 Active confirmed 13491 9001 Problem Dysuria R30.0 Active confirmed 74092517 Problem History of bladder stone Z87.448 Active confirmed Problem 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, 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 Active confirmed 273202205 Problem Peripheral vascular disease I73.9 Active confirmed 502156947 Problem Anxiety with depression F41.8 Active confirmed 812399009 Problem Current chronic use of systemic steroids Z79.52 Active confirmed 193495318233674 Problem Current smoker F17.200 Active confirmed 7717 6002 Problem Other chronic pain G89.29 Active confirmed 8 6492492 Problem Sacrococcygeal pain M53.3 Active confirmed 156008484 Problem Type 2 diabetes mellitus without complications E11 .9 Active confirmed 872806383 Problem Myalgia, other site M79.18 Active confirmed 94720562 Problem Hypothyroidism, unspecified type E03.9 Active conf irmed 96748186 Problem Pulmonary emphysema, unspecified emphysema type J4 3.9 Active confirmed 76043308 Problem Dyslipidemia E78.5 Active confirmed 3469603 07 Problem Essential hypertension I10 Active confirmed 03221836 ALLERGIES Allergen (clinical drug ingredient) Drug/Non Drug Allergy do cumented on EMR Reaction Allergy Type Onset Date Status bacitracin Bacitracin([facility] Code:[address]-73) Unknown Drug Allergy Active fluoxetine Fluoxetine Unknown Drug Allergy Active red dye Unknown Non Drug Allergy Active Adhesive Unknown Drug Allergy Active Sulfamethoxazole([facility] Code:[address]-80) Unknown Drug A llergy Active trimethoprim Trimethoprim([facility] Code:[address]-06) Unknown Drug All ergy Active polymyxin B Polymyxin B Sulfate([facility] Code:[address]-70) Unknown Dr foreign Allergy Active ENCOUNTERS from 1945 to 2020-11-28 Encounter Location Date Provider Diagnosis [address] [address] [facility] [phone] [place] [address] Nov, Shanmua Perabattula IMMUNIZATIONS No Information SOCIAL HISTORY Tobacco Use: Social History Observation Description Date Details (start date - stop date) Current Smoker Sex Assigned At : Social History Observation Description Sex Assigned At Unknown Education: Question Answer Notes Level of Education: Not finished High School Language: Question Answer Notes Languages spoken: Mohawk Cheondoism: Question Answer Notes Cheondoism No mandaen beliefs that would impact health care. Sexual [...] Counseled the patient on smoking cessation, education [facility] ed 04/23/2018 REASON FOR REFERRAL No Information [...] tablet Orally Once a day 1000 Unknown HYDROcodone-Acetaminophen 5-325 MG 1 tablet as needed Orally Every 12 hours for 5 days June, Unknown Alendronate Sodium 70 MG 1 tablet [...] CAPSULE BY MOUTH @8PM for 28 Active hydrOXYzine HCl 10 MG 1 tablet as needed Oral every 8 hrs for 30 days Unknown metFORMIN HCl 500 MG 1 tablet with a meal Orally Twice daily for 30 day(s) June, Unknown Amlodipine Besylate 10 MG take one tablet by mouth @5p m Oral Once a day for 30 days Unknown Clopidogrel Bisulfate 75 MG TAKE ONE TABLET BY MOUTH @8AM Oral for 14 Unknown hydrALAZINE HCl 50 MG take one tablet by mouth @8a m and take one tablet by mouth @5pm Oral Twice a day for 30 days Active DULoxetine HCl 60 MG take one capsule by mouth @8am Oral Onc e a day for 30 days Unknown Albuterol Sulfate (2.5 MG/3ML) 0.083% 3 ml Inhalation Three times a day for 30 days 1 week ago Unknown Basaglkelli KwikPen 100 UNIT/ML inject 30 units subcutane ously once daily Subcutaneous Once daily for 30 days Unknown PROCEDURES No Information RESULTS No Results REASON FOR VISIT Home care referral MEDICAL (GENERAL) HISTORY Type Description Date Medical [...] surgery 2018 Hospitalization History Pneumonia x1 week [facility] 10/05/15 Hospitalization History Pneumonia X 2weeks at [facility] 10/2015 Hospitalization History surgery related Hospitalization History child Hospitalization History COPD exacerbation February 2020 Hospitalization History [facility] for pneumonia and UTI April 2020 Goals Section No Information Health Concerns No Information MEDICAL EQUIPMENT No Information MENTAL STATUS No Information FUNCTIONAL STATUS No Information ASSESSMENTS No Information PLAN OF TREATMENT Medication Medication Name Sig Start Date Stop Date Lisinopril 20 MG TAKE ONE TABLET BY MOUTH @8AM and TAKE O NE TABLET @5PM for 28 hydrALAZINE HCl 50 MG take one tablet by mouth @8a m and take one tablet by mouth @5pm Oral Twice a day for 30 days Gabapentin 100 MG TAKE ONE CAPSULE BY MOUTH @8PM for 28 Next Appt Details Provider Name:Angel Geremias, 2020-12-12 03: 30:00 PM, [address] , , [place], [address], Insurance Providers Payer Name Payer Address Payer Phone Insured Name Patient Relati onship to Insured Coverage Start Date Coverage End Date [facility] [employer] [facility] [address] [address] [facility] [phone] ELA LIVINGSTON self MEDICARE Part A and B [address] [facility] [id number] [phone] ELA LIVINGSTON self
--- OUTSIDE RECORDS SUMMARY | 2020-11-30 16:27 | CCD ---
Author Author [facility] Organization [facility] Address Unknown Phone Unavailable Care Team Providers Care Principal Web Developer Name Role Phone Es Mcclain Unavailable PROBLEMS Type Condition ICD9-CM Code KVA51-WM Code Onset Dates Condition S tatus W/U Status Risk SNOMED Code Notes Problem Bladder tumor D49.4 Active confirmed 603733 006 Problem Bladder mass N32.89 Active confirmed 7767311 04 Problem Bladder cancer C67.9 Active confirmed 36496 6009 Problem Preop testing Z01.818 Active confirmed 33032 9001 Problem Dysuria R30.0 Active confirmed 77784459 Problem History of bladder stone Z87.448 Active confirmed Problem 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, 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 Active confirmed 294647150 Problem Peripheral vascular disease I73.9 Active confirmed 745533485 Problem Anxiety with depression F41.8 Active confirmed 706138407 Problem Current chronic use of systemic steroids Z79.52 Active confirmed 512825089250783 Problem Current smoker F17.200 Active confirmed 7717 6002 Problem Other chronic pain G89.29 Active confirmed 8 4537047 Problem Sacrococcygeal pain M53.3 Active confirmed 908407246 Problem Type 2 diabetes mellitus without complications E11 .9 Active confirmed 554691561 Problem Myalgia, other site M79.18 Active confirmed 44673988 Problem Hypothyroidism, unspecified type E03.9 Active conf irmed 10676608 Problem Pulmonary emphysema, unspecified emphysema type J4 3.9 Active confirmed 06671169 Problem Dyslipidemia E78.5 Active confirmed 6455731 07 Problem Essential hypertension I10 Active confirmed 23612702 ALLERGIES Allergen (clinical drug ingredient) Drug/Non Drug Allergy do cumented on EMR Reaction Allergy Type Onset Date Status bacitracin Bacitracin([facility] Code:[address]-64) Unknown Drug Allergy Active fluoxetine Fluoxetine Unknown Drug Allergy Active red dye Unknown Non Drug Allergy Active Adhesive Unknown Drug Allergy Active Sulfamethoxazole([facility] Code:[address]-27) Unknown Drug A llergy Active trimethoprim Trimethoprim([facility] Code:[address]-42) Unknown Drug All ergy Active polymyxin B Polymyxin B Sulfate([facility] Code:[address]-59) Unknown Dr foreign Allergy Active ENCOUNTERS from 1945 to 2020-11-29 Encounter Location Date Provider Diagnosis [id number] [facility] [phone] [place] [address] Nov, Es Mcclain Essential hypertension I10 IMMUNIZATIONS No Information SOCIAL HISTORY Tobacco Use: Social History Observation Description Date Details (start date - stop date) Current Smoker Sex Assigned At : Social History Observation Description Sex Assigned At Unknown Education: Question Answer Notes Level of Education: Not finished High School Language: Question Answer Notes Languages spoken: Liberian Pentecostal: Question Answer Notes Pentecostal No hindu beliefs that would impact health care. Sexual [...] Counseled the patient on smoking cessation, education [facility] ed 04/23/2018 REASON FOR REFERRAL [...] Information RESULTS No Results REASON FOR VISIT refill, would like a call MEDICAL (GENERAL) HISTORY Type Description Date Medical [...] surgery 2018 Hospitalization History Pneumonia x1 week [facility] 10/05/15 Hospitalization History Pneumonia X 2weeks at [facility] 10/2015 Hospitalization History surgery related Hospitalization History child Hospitalization History COPD exacerbation February 2020 Hospitalization History [facility] for pneumonia and UTI April 2020 Goals Section No Information Health Concerns No Information MEDICAL EQUIPMENT No Information MENTAL STATUS No Information FUNCTIONAL STATUS No Information ASSESSMENTS Encounter Date Diagnosis Assessment Notes Treatment Notes Treatm ent Clinical Notes Nov, Essential hypertension (ICD-10 - I10) PLAN OF TREATMENT Medication Medication Name Sig [...] Name:Angel Archuleta, 2020-12-12 03: 30:00 PM, [address] [facility], , [place], [address], Insurance Providers Payer Name Payer Address Payer Phone Insured Name Patient Relati onship to Insured Coverage Start Date Coverage End Date [facility] [address] [address] [facility] [phone] COUTURE,ELA JEREMY self MEDICARE Part A and B [address] [facility] [phone] COUTURE,ELA JEREMY self
[2020-11-30] MEDS ORDERED: **hydrALAZINE HCL** 25 MG TAB PO PRN (16:30)
--- OUTSIDE RECORDS SUMMARY | 2020-11-30 16:32 | CCD ---
Author Author [facility] Organization [facility] Address Unknown Phone Unavailable Care Team Providers Care Parts Salesperson Name Role Phone Freddie WANG MD Unavailable [...] V Zhanna MD Unavailable Unavailable Dombek-Lang, V Hzanna MD Unavailable Unavailable Dombek-Lang, V Zhanna MD [...] Unavailable Unavailable Nelly HOLLAND MD Unavailable Unavailable Nelyl HOLLAND MD Unavailable Unavailable Nelly HOLLAND MD [...] L JONES PA Unavailable Unavailable SUJIT, L JOENS PA Unavailable Unavailable SUJIT, L JONES PA [...] Unavailable CARMEN DAVIS Unavailable Unavailable Pleskach, Chelly COLLISION REPAIRER Unavailable Unavailable Pleskach, Chelly COLLISION REPAIRER Unavailable Unavailable Pleskach, Chelly COLLISION REPAIRER Unavailable Unavailable Pleskach, Chelly COLLISION REPAIRER Unavailable Unavailable Pleskach, Chelly COLLISION REPAIRER Unavailable Unavailable Pleskach, Chelly COLLISION REPAIRER Unavailable Unavailable Pleskach, Chelly COLLISION REPAIRER Unavailable Unavailable Pleskach, Chelly COLLISION REPAIRER Unavailable Unavailable Pleskach, Chelly COLLISION REPAIRER Unavailable Unavailable Pleskach, Chelly COLLISION REPAIRER Unavailable Unavailable Pleskach, Chelly COLLISION REPAIRER Unavailable Unavailable Pleskach, Chelly COLLISION REPAIRER Unavailable Unavailable Pleskach, Chelly COLLISION REPAIRER Unavailable Unavailable Pleskach, Chelly COLLISION REPAIRER Unavailable Unavailable Pleskach, Chelly COLLISION REPAIRER Unavailable Unavailable Pleskach, Chelly COLLISION REPAIRER Unavailable Unavailable Pleskach, Chelly COLLISION REPAIRER Unavailable Unavailable Pleskach, Chelly COLLISION REPAIRER Unavailable Unavailable Pleskach, Chelly COLLISION REPAIRER Unavailable Unavailable Pleskach, Chelly COLLISION REPAIRER Unavailable Unavailable Pleskach, Chelly COLLISION REPAIRER Unavailable Unavailable Pleskach, Chelly COLLISION REPAIRER Unavailable Unavailable Pleskach, Chelly COLLISION REPAIRER Unavailable Unavailable Pleskach, Chelly COLLISION REPAIRER Unavailable Unavailable Pleskach, Chelly COLLISION REPAIRER Unavailable Unavailable Pleskach, Chelly COLLISION REPAIRER Unavailable Unavailable Pleskach, Chelly COLLISION REPAIRER Unavailable Unavailable Pleskach, Chelly COLLISION REPAIRER Unavailable Unavailable Pleskach, Chelly COLLISION REPAIRER Unavailable Unavailable Pleskach, Chelly COLLISION REPAIRER Unavailable Unavailable Pleskach, Chelly COLLISION REPAIRER Unavailable Unavailable Pleskach, Chelly COLLISION REPAIRER Unavailable Unavailable Pleskach, Chelly COLLISION REPAIRER Unavailable Unavailable Pleskach, Chelly COLLISION REPAIRER Unavailable Unavailable Pleskach, Chelly COLLISION REPAIRER Unavailable Unavailable Pleskach, Chelly COLLISION REPAIRER Unavailable Unavailable Pleskach, Chelly COLLISION REPAIRER Unavailable Unavailable Pleskach, Chelly COLLISION REPAIRER Unavailable Unavailable Pleskach, Chelly COLLISION REPAIRER Unavailable Unavailable Pleskach, Chelly COLLISION REPAIRER Unavailable Unavailable Pleskach, Chelly COLLISION REPAIRER Unavailable Unavailable Pleskach, Chelly COLLISION REPAIRER Unavailable Unavailable AMEZQUITA, ANSHUL KWABENA COLLISION REPAIRER-C, MSN Unavailable Unavailab le AMEZQUITA, ANSHUL KWABENA COLLISION REPAIRER-C, MSN Unavailable Unavailab le AMEZQUITA, ANSHUL KWABENA COLLISION REPAIRER-C, MSN Unavailable Unavailab le AMEZQUITA, ANSHUL KWABENA COLLISION REPAIRER-C, MSN Unavailable Unavailab le AMEZQUITA, ANSHUL KWABENA COLLISION REPAIRER-C, MSN Unavailable Unavailab le AMEZQUITA, ANSHUL KWABENA COLLISION REPAIRER-C, MSN Unavailable Unavailab le AMEZQUITA, ANSHUL KWABENA COLLISION REPAIRER-C, MSN Unavailable Unavailab le AMEZQUITA, ANSHUL KWABENA COLLISION REPAIRER-C, MSN Unavailable Unavailab le AMEZQUITA, ANSHUL KWABENA COLLISION REPAIRER-C, MSN Unavailable Unavailab le AMEZQUITA, ANSHUL KWABENA COLLISION REPAIRER-C, MSN Unavailable Unavailab le AMEZQUITA, ANSHUL KWABENA COLLISION REPAIRER-C, MSN Unavailable Unavailab le AMEZQUITA, ANSHUL KWABENA COLLISION REPAIRER-C, MSN Unavailable Unavailab le AMEZQUITA, ANSHUL KWABENA COLLISION REPAIRER-C, MSN Unavailable Unavailab le AMEZQUITA, ANSHUL KWABENA COLLISION REPAIRER-C, MSN Unavailable Unavailab le AMEZQUITA, ANSHUL KWABENA COLLISION REPAIRER-C, MSN Unavailable Unavailab le AMEZQUITA, ANSHUL KWABENA COLLISION REPAIRER-C, MSN Unavailable Unavailab le AMEZQUITA, ANSHUL KWABENA COLLISION REPAIRER-C, MSN Unavailable Unavailab le AMEZQUITA, ANSHUL KWABENA COLLISION REPAIRER-C, MSN Unavailable Unavailab le AMEZQUITA, ANSHUL KWABENA COLLISION REPAIRER-C, MSN Unavailable Unavailab le AMEZQUITA, ANSHUL KWABENA COLLISION REPAIRER-C, MSN Unavailable Unavailab le AMEZQUITA, ANSHUL KWABENA COLLISION REPAIRER-C, MSN Unavailable Unavailab le AMEZQUITA, ANSHUL KWABENA COLLISION REPAIRER-C, MSN Unavailable Unavailab le AMEZQUITA, ANSHUL KWABENA COLLISION REPAIRER-C, MSN Unavailable Unavailab le AMEZQUITA, ANSHUL KWABENA COLLISION REPAIRER-C, MSN Unavailable Unavailab le AMEZQUITA, ANSHUL KWABENA COLLISION REPAIRER-C, MSN Unavailable Unavailab le AMEZQUITA, ANSHUL KWABENA COLLISION REPAIRER-C, MSN Unavailable Unavailab le AMEZQUITA, ANSHUL KWABENA COLLISION REPAIRER-C, MSN Unavailable Unavailab le AMEZQUITA, ANSHUL KWABENA COLLISION REPAIRER-C, MSN Unavailable Unavailab le AMEZQUITA, ANSHUL KWABENA COLLISION REPAIRER-C, MSN Unavailable Unavailab le AMEZQUITA, ANSHUL KWABENA COLLISION REPAIRER-C, MSN Unavailable Unavailab le AMEZQUITA, ANSHUL KWABENA COLLISION REPAIRER-C, MSN Unavailable Unavailab le AMEZQUITA, ANSHUL KWABENA COLLISION REPAIRER-C, MSN Unavailable Unavailab le AMEZQUITA, ANSHUL KWABENA COLLISION REPAIRER-C, MSN Unavailable Unavailab le AMEZQUITA, ANSHUL KWABENA COLLISION REPAIRER-C, MSN Unavailable Unavailab le AMEZQUITA, ANSHUL KWABENA COLLISION REPAIRER-C, MSN Unavailable Unavailab le AMEZQUITA, ANSHUL KWABENA COLLISION REPAIRER-C, MSN Unavailable Unavailab le AMEZQUITA, ANSHUL KWABENA COLLISION REPAIRER-C, MSN Unavailable Unavailab le AMEZQUITA, ANSHUL KWABENA COLLISION REPAIRER-C, MSN Unavailable Unavailab le AMEZQUITA, ANSHUL KWABENA COLLISION REPAIRER-C, MSN Unavailable Unavailab le AMEZQUITA, ANSHUL KWABENA COLLISION REPAIRER-C, MSN Unavailable Unavailab le AMEZQUITA, ANSHUL KWABENA COLLISION REPAIRER-C, MSN Unavailable Unavailab le AMEZQUITA, ANSHUL KWABENA COLLISION REPAIRER-C, MSN Unavailable Unavailab le AMEZQUITA, ANSHUL KWABENA COLLISION REPAIRER-C, MSN Unavailable Unavailab le AMEZQUITA, ANSHUL KWABENA COLLISION REPAIRER-C, MSN Unavailable Unavailab le AMEZQUITA, ANSHUL KWABENA COLLISION REPAIRER-C, MSN Unavailable Unavailab le Selene Cummings MD [...] A RASTA DO Unavailable Unavailable SEARS, A RATSA DO Unavailable Unavailable SEARS, A RASTA DO [...] Unavailable Unavailable DELANEY SO MD Unavailable Unavailable SOEDLANEY BUSTILLO MD Unavailable Unavailable SODELANEY BUSTILLO MD Unavailable Unavailable SODELANEY MD Unavailable Unavailable SODELANEY BUSTILLO MD Unavailable Unavailable SODELANEY BUSTILLO MD Unavailable Unavailable Cederstrand, Zenaida Garcia MD Unavailable Unavailable Cederstrand, Zenaida Garcia MD Unavailable Unavailable Cederstrand, Zenaida Garcia MD Unavailable Unavailable Cederstrand, Zenaida Garcia MD Unavailable Unavailable Cederstrand, Zenaida Garcia MD Unavailable Unavailable [place], Zenaida Garcia MD Unavailable Unavailable Cederstrand, Zenadia Garcia MD Unavailable Unavailable Cederstrand, Zenaida Garcia MD Unavailable Unavailable Cederstrand, Zenadia Garcia MD Unavailable Unavailable Cederstrand, Zenaida Garcia [...] Petra DO Unavailable Unavailable Demetrio PALMER Unavailable [phone] Demetrio PALMER Unavailable [phone] Demetrio PALMER Unavailable [phone] Demetrio PALMER Unavailable [phone] Demetrio PALMER PETRA Unavailable [phone] MICHAEL WANG MD Unavailable Unavailable Glenwood, Noe PA Unavailable Unavailable [place]wood, Noe PA Unavailable Unavailable [place], Noe PA Unavailable Unavailable [place], Noe PA Unavailable Unavailable [place], Noe PA Unavailable Unavailable [place], Noe PA Unavailable Unavailable [place], Noe PA Unavailable Unavailable [place], Noe PA Unavailable Unavailable [place], Noe PA Unavailable Unavailable [place], Noe PA Unavailable Unavailable [place], Noe PA Unavailable Unavailable [place], Noe PA Unavailable Unavailable [place], Noe PA Unavailable Unavailable [place], Noe PA Unavailable Unavailable [place], Noe PA Unavailable Unavailable [place], Noe PA Unavailable Unavailable [place], Noe PA Unavailable Unavailable [place], Noe PA Unavailable Unavailable [facility]_23, [id number] Unavailable [phone] [facility], [id number] Unavailable [phone] [facility], [id number] Unavailable [phone] [facility], [id number] Unavailable [phone] [facility], [id number] Unavailable [phone] [facility], [id number] Unavailable [phone] [facility], [id number] Unavailable [phone] [facility], [id number] Unavailable [phone] [facility], [id number] Unavailable [phone] [facility], [id number] Unavailable [phone] [facility], [id number] Unavailable [phone] Conway, W Petra RPA-C Unavailable Unavailable Conway, [...] is protected by Article 27-F of the [facility] Public Health law. If you continue you may have access to information: Regarding HIV / AIDS; Provided by facilities licensed or operated by the [facility] Office of Mental Health; or Provided by the [facility] Office for People With Developmental Disabilities. If such information is present, then the following [facility] mandated warning applies: This information has been [...] law may result in a fine or mcfp sentence or both. A general authorization for the release of medical or other information is NOT sufficient authorization for further disc losure. Allergies and Adverse Reactions Type Description Substance Reaction Status Data Source(s ) Drug allergy red (food color) red (food color) [facility] Drug allergy cort[facility]one [facility] Drug allergy polymyxin B [facility]yxin [facility] Drug allergy fluoxetine fluox[facility] Drug allergy tramadol tramadol [facility] Drug allergy bacitracin bacitracin [facility] Drug allergy neomycin neomycin [facility] Drug allergy SULFA SULFA [facility] Family History Family Member Name Family Member Gender Family Member Status Date o f Status Description Data Source(s) Unknown Male Problem MEDENT ([facility]) () Encounters Encounter Providers Location Date Indications Data Source(s ) [place] [address] [facility] [address] 11/27/2020 12:00:00 AM EDT eCW1 ([facility]) [place] [address] [facility] [address] 11/23/2020 12:00:00 AM EDT [facility]CW1 ([facility]) [place] [address] [facility] [address] 11/09/2020 12:00:00 AM EDT eCW1 ([facility]) [place] [address] [facility] [address] 08/31/2020 12:00:00 AM EDT eCW1 ([facility]) [place] [address] [facility] [address] 08/23/2020 12:00:00 AM EDT eCW1 ([facility]) [place] [address] [facility] [address] 08/11/2020 12:00:00 AM EDT eCW1 ([facility]) [place] [address] [facility] [address] 08/08/2020 12:00:00 AM EDT eCW1 ([facility]) [place] [address] [facility] [address] 08/04/2020 12:00:00 AM EDT eCW1 ([facility]) [place] [address] [facility] [address] 08/02/2020 12:00:00 AM EDT eCW1 ([facility]) [place] [address] [facility] [address] 07/31/2020 12:00:00 AM EDT eCW1 ([facility]) [place] [address] [facility] [address] 07/18/2020 12:00:00 AM EDT eCW1 ([facility]) [place] [address] [facility] [address] 07/17/2020 12:00:00 AM EDT eCW1 ([facility]) [place] [address] [facility] [address] 07/14/2020 12:00:00 AM EDT eCW1 ([facility]) [place] [address] [facility] [address] 07/14/2020 12:00:00 AM EDT eCW1 ([facility]) [place] [address] [facility] [address] 07/12/2020 12:00:00 AM EDT eCW1 ([facility]) [place] [address] [facility] [address] 07/12/2020 12:00:00 AM EDT eCW1 ([facility]) [place] [address] [facility] [address] 07/11/2020 12:00:00 AM EDT eCW1 ([facility]) [place] [address] [facility] [address] 06/29/2020 12:00:00 AM EDT eCW1 ([facility]) [place] [address] [facility] [address] 06/28/2020 12:00:00 AM EDT eCW1 ([facility]) [place]patient [address] [facility] [address] 06/23/2020 12:00:00 AM EDT eCW1 ([facility]) [place] [address] [facility] [address] 06/19/2020 12:00:00 AM EDT eCW1 ([facility]) Inpatient Attender: GEORGIA DENIS DOAttender : MICHAEL WANG MDAttender: MICHAEL WANG MDAttender: MEHUL ARAIZA MDAttender: MEHUL ARAIZA MDAdmitter: MICHAEL WANG MD [id number]-[id number] 05/18/2020 07:42:00 PM EDT - 06/11/2020 06:33:00 PM EDT [facility] Patient discharged. Outpatient 05/18/2020 04:36:00 PM EDT Pneumonia , sepsis, needs [facility] Pneumonia, sepsis, needs MRI Emergency Attender: Favio ARNETT ttender: FAVIO VILLEGASAttender: STEVE DAVIS EMERGENCY ROOM-ER 05/18/2020 01:32:00 PM EDT - 05/18/2020 06:10:00 PM EDT [facility] Patient discharged. Outpatient Attender: Favioescobar Villegas DO ER-RAD 05/18/2020 10:45:00 AM EDT [facility] Outpatient Attender: Favio Bakari DOConsultant: [facility] p [id number] 05/17/2020 11:52:00 AM EDT [facility] Outpatient Attender: Zhanna Cummings MDConsultant: [facility] [id number] 05/17/2020 05:40:00 AM EDT [facility] Inpatient Attender: Zhanna Cummings MDAdmitter: Zhanna Cummings MD EMERGENCY ROOM-2N 05/16/2020 08:11:00 PM EDT - 05/18/2020 01:31:00 PM EDT [facility] Patient discharged. Outpatient Attender: OTHER PHYSICIANConsultant: [facility] [id number] 05/10/2020 08:50:00 PM EDT [facility] Inpatient Attender: [id number] MEDENT_ 23Attender: Petra Ortiz DOAdmitter: [id number] MED[facility]_23 EMERGENCY ROOM-2N 05/10/2020 05:30:00 PM EDT - 05/16/2020 08:10:00 PM EDT [facility] Patient discharged. Outpatient Attender: JONES BECKETT PAConsultant: [facility] p [id number] 05/10/2020 02:09:00 PM EDT [facility] Emergency Attender: JONES RUIZ EMERGENCY ROOM-EMERG ENCY ROOM 05/10/2020 12:22:00 PM EDT - 05/10/2020 12:22:00 PM EDT [facility] Patient discharged. Outpatient Attender: RASTA Ernandez/Alie/Catrachito/Dakota 01/04/2020 01:30:00 PM EST MEDENT ([facility] Outpatient Attender: Chelly Irizarry [facility] Main Office 01/03/2020 0 1:30:00 PM EST MED[facility] ([facility] Outpatient Attender: Chelly Irizarry [facility] Main Office 12/20/2019 0 1:30:00 PM EST MEDENT ([facility] Outpatient Attender: RASTA RAO DO Robert/Caney/Catrachito/Reindl 12/15/2019 02:00:00 PM EST [facility] ([facility] Outpatient Attender: Radha Jones/Caney/Catrachito/ Reindl 12/02/2019 11:15:00 AM EDT MED[facility] ([facility]) Unknown [address] [place] [address], [place] [address] 11/30/2019 12:00:00 AM EDT eCW1 ([facility]) Outpatient [facility] 11/29/2019 12:02:06 AM EDT [facility] Outpatient Attender: Michelle Iraheta RPA Robert/Caney/Catrachito/R eindl 10/28/2019 11:45:00 AM EDT MED[facility] ([facility]) Outpatient Attender: Chelly Irizarry [facility] Main Office 10/20/2019 0 2:45:00 PM EDT MEDENT ([facility] Emergency Attender: JONES RUIZ EMERGENCY ROOM-ER 04:10:00 PM [facility] - 02/22/2016 07:48:00 PM [facility] Preadmit Attender: DELANEY SO MDAdmitter: KATHERIN SO MD EMERGENCY ROOM-2N 01/10/2016 09:39:00 AM EST - 10/13/2015 03:46:00 PM [facility] Outpatient Attender: PAU HOLLAND MD EMERGENCY ROOM-LABOT HPROV 12/27/2015 02:51:00 PM EST - 12/27/2015 02:51:00 PM [facility] Emergency Attender: Petra Conway RPA-C EMERGENCY ROOM-ER 1 03:15:00 PM EDT - 11/22/2015 07:20:00 PM [facility] Outpatient Attender: KWABENA CURRAN-C, MSN EMERGENCY RAMSEY M-RIVCLI 10/30/2015 01:30:00 PM [facility] Inpatient Attender: Noe Anderson PAAdmitter: PETRA ALBRECHTSHANE IN EMERGENCY ROOM-2N 10/19/2015 10:22:00 AM EDT - 10/25/2015 04:15:00 PM [facility] Inpatient Attender: DELANEY SO MDAdmitter: KATHERIN SO MD EMERGENCY ROOM-2N 10/13/2015 03:45:00 PM EDT - 10/19/2015 10:21:00 AM [facility] Immunizations Vaccine Date Status Description Data Source(s) COVID-19 VACCINE Moderna 07/06/2020 12:00:00 AM EDT completed [facility] Vaccine Series Complete: NOThis Data was Submitted to [facility] X. New in 2011. IIV4 12/15/2019 04:05:00 AM EST completed MEDENT ([facility]) New in 2011. IIV4 12/14/2019 01:32:00 PM EST completed MEDENT ([facility] ) Medications Medication Brand Name Start Date Product Form Dose Route Admi nistrative Instructions Pharmacy Instructions Status Indications Reaction Description Data Source(s) Nicotine 7 MG/24HR Nicotine 7 MG/24HR 07/28/2020 12:00:00 AM EDT 1.0 {patch_to_skin} active Nicotine 7 MG/24 HR eCW1 ([facility]) Nicotine 7 MG/24HR Nicotine 7 MG/24HR 07/28/2020 12:00:00 AM EDT 1.0 {patch_to_skin} active Nicotine 7 MG/24 HR eCW1 ([facility]) Nicotine 7 MG/24HR Nicotine 7 MG/24HR 07/28/2020 12:00:00 AM EDT 1.0 {patch_to_skin} active Nicotine 7 MG/24 HR eCW1 ([facility]) Nicotine 7 MG/24HR Nicotine 7 MG/24HR 07/28/2020 12:00:00 AM EDT 1.0 {patch_to_skin} active Nicotine 7 MG/24 HR eCW1 ([facility]) Nicotine 7 MG/24HR Nicotine 7 MG/24HR 07/28/2020 12:00:00 AM EDT 1.0 {patch_to_skin} active Nicotine 7 MG/24 HR eCW1 ([facility]) Nicotine 7 MG/24HR Nicotine 7 MG/24HR 07/28/2020 12:00:00 AM EDT 1.0 {patch_to_skin} active Nicotine 7 MG/24 HR eCW1 ([facility]) Nicotine 7 MG/24HR Nicotine 7 MG/24HR 07/28/2020 12:00:00 AM EDT 1.0 {patch_to_skin} active Nicotine 7 MG/24 HR eCW1 ([facility]) Nicotine 7 MG/24HR Nicotine 7 MG/24HR 07/28/2020 12:00:00 AM EDT 1.0 {patch_to_skin} active Nicotine 7 MG/24 HR eCW1 ([facility]) Nicotine 7 MG/24HR Nicotine 7 MG/24HR 07/28/2020 12:00:00 AM EDT 1.0 {patch_to_skin} active Nicotine 7 MG/24 HR eCW1 ([facility]) Nicotine 7 MG/24HR Nicotine 7 MG/24HR 07/28/2020 12:00:00 AM EDT 1.0 {patch_to_skin} active Nicotine 7 MG/24 HR eCW1 ([facility]) Optifoam 4"X4" UNK 07/18/2020 12:00:00 AM EDT active Optifoam 4"X4" eCW1 ([facility]) Optifoam 4"X4" UNK 07/18/2020 12:00:00 AM EDT active Optifoam 4"X4" eCW1 ([facility]) Optifoam 4"X4" UNK 07/18/2020 12:00:00 AM EDT active Optifoam 4"X4" eCW1 ([facility]) Optifoam 4"X4" UNK 07/18/2020 12:00:00 AM EDT active Optifoam 4"X4" eCW1 ([facility]) Optifoam 4"X4" UNK 07/18/2020 12:00:00 AM EDT active Optifoam 4"X4" eCW1 ([facility]) Optifoam 4"X4" UNK 07/18/2020 12:00:00 AM EDT active Optifoam 4"X4" eCW1 ([facility]) Optifoam 4"X4" UNK 07/18/2020 12:00:00 AM EDT active Optifoam 4"X4" eCW1 ([facility]) Optifoam 4"X4" UNK 07/18/2020 12:00:00 AM EDT active Optifoam 4"X4" eCW1 ([facility]) Optifoam 4"X4" Optifoam 4"X4" 07/18/2020 12:00:00 AM EDT active Optifoam 4"X4" eCW1 ([facility]) Optifoam 4"X4" UNK 07/18/2020 12:00:00 AM EDT active Optifoam 4"X4" eCW1 ([facility]) Optifoam 4"X4" UNK 07/18/2020 12:00:00 AM EDT active Optifoam 4"X4" eCW1 ([facility]) Optifoam 4"X4" Optifoam 4"X4" 07/18/2020 12:00:00 AM EDT active Optifoam 4"X4" eCW1 ([facility]) Acetaminophen 325 MG / Hydrocodone Marin trate 5 MG Oral Tablet Hydrocodone- Acetaminophen 5-325 MG Hydrocodone-Acetaminophen 5-325 MG 06/23/2020 12:00:00 AM EDT 1.0 {tablet_as_needed} active Hydrocodone-Acetaminophen 5-325 MG eCW1 ([facility]) gabapentin 100 MG Oral Capsule Gabapentin 100 MG Gabapentin 100 MG 06/23/2020 12:00:00 AM EDT 1.0 {capsule} active G abapentin 100 MG eCW1 ([facility]) Acetaminophen 325 MG / Hydrocodone [place] trate 5 MG Oral Tablet HYDROcodone- Acetaminophen 5-325 MG HYDROcodone-Acetaminophen 5-325 MG 06/23/2020 12:00:00 AM EDT 1.0 {tablet_as_needed} active HYDROcodone-Acetaminophen 5-325 MG eCW1 ([facility]) Alendronic acid 70 MG Oral Tablet Alendronate Sodium 7 0 MG Alendronate Sodium 70 MG 06/23/2020 12:00:00 AM EDT active Alendronate Sodium 70 MG eCW1 ([facility]) Acetaminophen 325 MG / Hydrocodone [place] trate 5 MG Oral Tablet HYDROcodone- Acetaminophen 5-325 MG HYDROcodone-Acetaminophen 5-325 MG 06/23/2020 12:00:00 AM EDT 1.0 {tablet_as_needed} active HYDROcodone-Acetaminophen 5-325 MG eCW1 ([facility]) HM Lidocaine Patch 4 % HM Lidocaine Patch 4 % 06/23/2020 12:00:00 AM E DT active HM Lidocaine Patch 4 % eC W1 ([facility]) Metformin hydrochloride 500 MG Oral Tablet Metformin H Cl 500 MG Metformin HCl 500 MG 06/23/2020 12:00:00 AM EDT 1.0 {tablet_with_a_meal} active Metformin HCl 500 MG eCW1 ([facility]) HM Lidocaine Patch 4 % HM Lidocaine Patch 4 % 06/23/2020 12:00:00 AM E DT active HM Lidocaine Patch 4 % eC W1 ([facility]) gabapentin 100 MG Oral Capsule Gabapentin 100 MG Gabapentin 100 MG 06/23/2020 12:00:00 AM EDT 1.0 {capsule} active G abapentin 100 MG eCW1 ([facility]) Acetaminophen 325 MG / Hydrocodone [place] trate 5 MG Oral Tablet HYDROcodone- Acetaminophen 5-325 MG HYDROcodone-Acetaminophen 5-325 MG 06/23/2020 12:00:00 AM EDT 1.0 {tablet_as_needed} active HYDROcodone-Acetaminophen 5-325 MG eCW1 ([facility]) HM Lidocaine Patch 4 % HM Lidocaine Patch 4 % 06/23/2020 12:00:00 AM E DT active eCW1 ([facility]) Alendronic acid 70 MG Oral Tablet Alendronate Sodium 7 0 MG Alendronate Sodium 70 MG 06/23/2020 12:00:00 AM EDT active [facility] [facility]) Acetaminophen 325 MG / Hydrocodone Marin trate 5 MG Oral Tablet Hydrocodone- Acetaminophen 5-325 MG Hydrocodone-Acetaminophen 5-325 MG 06/23/2020 12:00:00 AM EDT 1.0 {tablet_as_needed} active Hydrocodone-Acetaminophen 5-325 MG eCW1 ([facility]) Acetaminophen 325 MG / Hydrocodone Marin trate 5 MG Oral Tablet HYDROcodone- Acetaminophen 5-325 MG HYDROcodone-Acetaminophen 5-325 MG 06/23/2020 12:00:00 AM EDT 1.0 {tablet_as_needed} active HYDROcodone-Acetaminophen 5-325 MG eCW1 ([facility]) HM Lidocaine Patch 4 % HM Lidocaine Patch 4 % 06/23/2020 12:00:00 AM E DT active HM Lidocaine Patch 4 % eC W1 ([facility]) Acetaminophen 325 MG / Hydrocodone Marin trate 5 MG Oral Tablet HYDROcodone- Acetaminophen 5-325 MG HYDROcodone-Acetaminophen 5-325 MG 06/23/2020 12:00:00 AM EDT 1.0 {tablet_as_needed} active HYDROcodone-Acetaminophen 5-325 MG eCW1 ([facility]) Alendronic acid 70 MG Oral Tablet Alendronate Sodium 7 0 MG Alendronate Sodium 70 MG 06/23/2020 12:00:00 AM EDT active Alendronate Sodium 70 MG eCW1 ([facility]) Acetaminophen 325 MG / Hydrocodone Marin trate 5 MG Oral Tablet HYDROcodone- Acetaminophen 5-325 MG HYDROcodone-Acetaminophen 5-325 MG 06/23/2020 12:00:00 AM EDT 1.0 {tablet_as_needed} active HYDROcodone-Acetaminophen 5-325 MG eCW1 ([facility]) HM Lidocaine Patch 4 % HM Lidocaine Patch 4 % 06/23/2020 12:00:00 AM E DT active HM Lidocaine Patch 4 % eC W1 ([facility]) Metformin hydrochloride 500 MG Oral Tablet Metformin H Cl 500 MG Metformin HCl 500 MG 06/23/2020 12:00:00 AM EDT 1.0 {tablet_with_a_meal} active Metformin HCl 500 MG eCW1 ([facility]) HM Lidocaine Patch 4 % HM Lidocaine Patch 4 % 06/23/2020 12:00:00 AM E DT active HM Lidocaine Patch 4 % eC W1 ([facility]) HM Lidocaine Patch 4 % HM Lidocaine Patch 4 % 06/23/2020 12:00:00 AM E DT active HM Lidocaine Patch 4 % eC W1 ([facility]) Metformin hydrochloride 500 MG Oral Tablet metFORMIN H Cl 500 MG metFORMIN HCl 500 MG 06/23/2020 12:00:00 AM EDT 1.0 {tablet_with_a_meal} active metFORMIN HCl 500 MG eCW1 ([facility]) Alendronic acid 70 MG Oral Tablet Alendronate Sodium 7 0 MG Alendronate Sodium 70 MG 06/23/2020 12:00:00 AM EDT active Alendronate Sodium 70 MG eCW1 ([facility]) gabapentin 100 MG Oral Capsule Gabapentin 100 MG Gabapentin 100 MG 06/23/2020 12:00:00 AM EDT 1.0 {capsule} active G abapentin 100 MG eCW1 ([facility]) Metformin hydrochloride 500 MG Oral Tablet Metformin H Cl 500 MG Metformin HCl 500 MG 06/23/2020 12:00:00 AM EDT 1.0 {tablet_with_a_meal} active Metformin HCl 500 MG eCW1 ([facility]) gabapentin 100 MG Oral Capsule Gabapentin 100 MG Gabapentin 100 MG 06/23/2020 12:00:00 AM EDT 1.0 {capsule} active G abapentin 100 MG eCW1 ([facility]) HM Lidocaine Patch 4 % HM Lidocaine Patch 4 % 06/23/2020 12:00:00 AM E DT active HM Lidocaine Patch 4 % eC W1 ([facility]) HM Lidocaine Patch 4 % HM Lidocaine Patch 4 % 06/23/2020 12:00:00 AM E DT active HM Lidocaine Patch 4 % eC W1 ([facility]) Acetaminophen 325 MG / Hydrocodone Marin trate 5 MG Oral Tablet Hydrocodone- Acetaminophen 5-325 MG Hydrocodone-Acetaminophen 5-325 MG 06/23/2020 12:00:00 AM EDT 1.0 {tablet_as_needed} active eCW1 ([facility]) HM Lidocaine Patch 4 % HM Lidocaine Patch 4 % 06/23/2020 12:00:00 AM E DT active HM Lidocaine Patch 4 % eC W1 ([facility]) Metformin hydrochloride 500 MG Oral Tablet metFORMIN H Cl 500 MG metFORMIN HCl 500 MG 06/23/2020 12:00:00 AM EDT 1.0 {tablet_with_a_meal} active metFORMIN HCl 500 MG eCW1 ([facility]) gabapentin 100 MG Oral Capsule Gabapentin 100 MG Gabapentin 100 MG 06/23/2020 12:00:00 AM EDT 1.0 {capsule} active G abapentin 100 MG eCW1 ([facility]) gabapentin 100 MG Oral Capsule Gabapentin 100 MG Gabapentin 100 MG 06/23/2020 12:00:00 AM EDT 1.0 {capsule} active eCW1 ([facility]) Acetaminophen 325 MG / Hydrocodone Marin trate 5 MG Oral Tablet HYDROcodone- Acetaminophen 5-325 MG HYDROcodone-Acetaminophen 5-325 MG 06/23/2020 12:00:00 AM EDT 1.0 {tablet_as_needed} active HYDROcodone-Acetaminophen 5-325 MG eCW1 ([facility]) Acetaminophen 325 MG / Hydrocodone Marin trate 5 MG Oral Tablet HYDROcodone- Acetaminophen 5-325 MG HYDROcodone-Acetaminophen 5-325 MG 06/23/2020 12:00:00 AM EDT 1.0 {tablet_as_needed} active HYDROcodone-Acetaminophen 5-325 MG eCW1 ([facility]) Metformin hydrochloride 500 MG Oral Tablet Metformin H Cl 500 MG Metformin HCl 500 MG 06/23/2020 12:00:00 AM EDT 1.0 {tablet_with_a_meal} active Metformin HCl 500 MG eCW1 ([facility]) Acetaminophen 325 MG / Hydrocodone Marin trate 5 MG Oral Tablet HYDROcodone- Acetaminophen 5-325 MG HYDROcodone-Acetaminophen 5-325 MG 06/23/2020 12:00:00 AM EDT 1.0 {tablet_as_needed} active HYDROcodone-Acetaminophen 5-325 MG eCW1 ([facility]) Alendronic acid 70 MG Oral Tablet Alendronate Sodium 7 0 MG Alendronate Sodium 70 MG 06/23/2020 12:00:00 AM EDT active Alendronate Sodium 70 MG eCW1 ([facility]) Alendronic acid 70 MG Oral Tablet Alendronate Sodium 7 0 MG Alendronate Sodium 70 MG 06/23/2020 12:00:00 AM EDT active Alendronate Sodium 70 MG eCW1 ([facility]) gabapentin 100 MG Oral Capsule Gabapentin 100 MG Gabapentin 100 MG 06/23/2020 12:00:00 AM EDT 1.0 {capsule} active G abapentin 100 MG eCW1 ([facility]) Alendronic acid 70 MG Oral Tablet Alendronate Sodium 7 0 MG Alendronate Sodium 70 MG 06/23/2020 12:00:00 AM EDT active Alendronate Sodium 70 MG eCW1 ([facility]) Metformin hydrochloride 500 MG Oral Tablet metFORMIN H Cl 500 MG metFORMIN HCl 500 MG 06/23/2020 12:00:00 AM EDT 1.0 {tablet_with_a_meal} active metFORMIN HCl 500 MG eCW1 ([facility]) Alendronic acid 70 MG Oral Tablet Alendronate Sodium 7 0 MG Alendronate Sodium 70 MG 06/23/2020 12:00:00 AM EDT active Alendronate Sodium 70 MG eCW1 ([facility]) Alendronic acid 70 MG Oral Tablet Alendronate Sodium 7 0 MG Alendronate Sodium 70 MG 06/23/2020 12:00:00 AM EDT active Alendronate Sodium 70 MG eCW1 ([facility]) Acetaminophen 325 MG / Hydrocodone Marin trate 5 MG Oral Tablet HYDROcodone- Acetaminophen 5-325 MG HYDROcodone-Acetaminophen 5-325 MG 06/23/2020 12:00:00 AM EDT 1.0 {tablet_as_needed} active HYDROcodone-Acetaminophen 5-325 MG eCW1 ([facility]) Metformin hydrochloride 500 MG Oral Tablet metFORMIN H Cl 500 MG metFORMIN HCl 500 MG 06/23/2020 12:00:00 AM EDT 1.0 {tablet_with_a_meal} active metFORMIN HCl 500 MG eCW1 ([facility]) Alendronic acid 70 MG Oral Tablet Alendronate Sodium 7 0 MG Alendronate Sodium 70 MG 06/23/2020 12:00:00 AM EDT active Alendronate Sodium 70 MG eCW1 ([facility]) Acetaminophen 325 MG / Hydrocodone Marin trate 5 MG Oral Tablet HYDROcodone- Acetaminophen 5-325 MG HYDROcodone-Acetaminophen 5-325 MG 06/23/2020 12:00:00 AM EDT 1.0 {tablet_as_needed} active HYDROcodone-Acetaminophen 5-325 MG eCW1 ([facility]) Metformin hydrochloride 500 MG Oral Tablet metFORMIN H Cl 500 MG metFORMIN HCl 500 MG 06/23/2020 12:00:00 AM EDT 1.0 {tablet_with_a_meal} active metFORMIN HCl 500 MG eCW1 ([facility]) Acetaminophen 325 MG / Hydrocodone Marin trate 5 MG Oral Tablet Hydrocodone- Acetaminophen 5-325 MG Hydrocodone-Acetaminophen 5-325 MG 06/23/2020 12:00:00 AM EDT 1.0 {tablet_as_needed} active Hydrocodone-Acetaminophen 5-325 MG eCW1 ([facility]) HM Lidocaine Patch 4 % HM Lidocaine Patch 4 % 06/23/2020 12:00:00 AM E DT active HM Lidocaine Patch 4 % eC W1 ([facility]) Metformin hydrochloride 500 MG Oral Tablet Metformin H Cl 500 MG Metformin HCl 500 MG 06/23/2020 12:00:00 AM EDT 1.0 {tablet_with_a_meal} active Metformin HCl 500 MG eCW1 ([facility]) gabapentin 100 MG Oral Capsule Gabapentin 100 MG Gabapentin 100 MG 06/23/2020 12:00:00 AM EDT 1.0 {capsule} active G abapentin 100 MG eCW1 ([facility]) Acetaminophen 325 MG / Hydrocodone Marin trate 5 MG Oral Tablet Hydrocodone- Acetaminophen 5-325 MG Hydrocodone-Acetaminophen 5-325 MG 06/23/2020 12:00:00 AM EDT 1.0 {tablet_as_needed} active Hydrocodone-Acetaminophen 5-325 MG eCW1 ([facility]) Metformin hydrochloride 500 MG Oral Tablet Metformin H Cl 500 MG Metformin HCl 500 MG 06/23/2020 12:00:00 AM EDT 1.0 {tablet_with_a_meal} active Metformin HCl 500 MG eCW1 ([facility]) HM Lidocaine Patch 4 % HM Lidocaine Patch 4 % 06/23/2020 12:00:00 AM E DT active HM Lidocaine Patch 4 % eC W1 ([facility]) Alendronic acid 70 MG Oral Tablet Alendronate Sodium 7 0 MG Alendronate Sodium 70 MG 06/23/2020 12:00:00 AM EDT active Alendronate Sodium 70 MG eCW1 ([facility]) Alendronic acid 70 MG Oral Tablet Alendronate Sodium 7 0 MG Alendronate Sodium 70 MG 06/23/2020 12:00:00 AM EDT active Alendronate Sodium 70 MG eCW1 ([facility]) gabapentin 100 MG Oral Capsule Gabapentin 100 MG Gabapentin 100 MG 06/23/2020 12:00:00 AM EDT 1.0 {capsule} active G abapentin 100 MG eCW1 ([facility]) HM Lidocaine Patch 4 % HM Lidocaine Patch 4 % 06/23/2020 12:00:00 AM E DT active HM Lidocaine Patch 4 % eC W1 ([facility]) gabapentin 100 MG Oral Capsule Gabapentin 100 MG Gabapentin 100 MG 06/23/2020 12:00:00 AM EDT 1.0 {capsule} active G abapentin 100 MG eCW1 ([facility]) Alendronic acid 70 MG Oral Tablet Alendronate Sodium 7 0 MG Alendronate Sodium 70 MG 06/23/2020 12:00:00 AM EDT active Alendronate Sodium 70 MG eCW1 ([facility]) Metformin hydrochloride 500 MG Oral Tablet metFORMIN H Cl 500 MG metFORMIN HCl 500 MG 06/23/2020 12:00:00 AM EDT 1.0 {tablet_with_a_meal} active metFORMIN HCl 500 MG eCW1 ([facility]) Metformin hydrochloride 500 MG Oral Tablet metFORMIN H Cl 500 MG metFORMIN HCl 500 MG 06/23/2020 12:00:00 AM EDT 1.0 {tablet_with_a_meal} active metFORMIN HCl 500 MG eCW1 ([facility]) Metformin hydrochloride 500 MG Oral Tablet metFORMIN H Cl 500 MG metFORMIN HCl 500 MG 06/23/2020 12:00:00 AM EDT 1.0 {tablet_with_a_meal} active metFORMIN HCl 500 MG eCW1 ([facility]) Alendronic acid 70 MG Oral Tablet Alendronate Sodium 7 0 MG Alendronate Sodium 70 MG 06/23/2020 12:00:00 AM EDT active Alendronate Sodium 70 MG eCW1 ([facility]) Alendronic acid 70 MG Oral Tablet Alendronate Sodium 7 0 MG Alendronate Sodium 70 MG 06/23/2020 12:00:00 AM EDT active Alendronate Sodium 70 MG eCW1 ([facility]) Acetaminophen 325 MG / Hydrocodone Marin trate 5 MG Oral Tablet Hydrocodone- Acetaminophen 5-325 MG Hydrocodone-Acetaminophen 5-325 MG 06/23/2020 12:00:00 AM EDT 1.0 {tablet_as_needed} active Hydrocodone-Acetaminophen 5-325 MG eCW1 ([facility]) Alendronic acid 70 MG Oral Tablet Alendronate Sodium 7 0 MG Alendronate Sodium 70 MG 06/23/2020 12:00:00 AM EDT active Alendronate Sodium 70 MG eCW1 ([facility]) Alendronic acid 70 MG Oral Tablet Alendronate Sodium 7 0 MG Alendronate Sodium 70 MG 06/23/2020 12:00:00 AM EDT active Alendronate Sodium 70 MG eCW1 ([facility]) Alendronic acid 70 MG Oral Tablet Alendronate Sodium 7 0 MG Alendronate Sodium 70 MG 06/23/2020 12:00:00 AM EDT active Alendronate Sodium 70 MG eCW1 ([facility]) Alendronic acid 70 MG Oral Tablet Alendronate Sodium 7 0 MG Alendronate Sodium 70 MG 06/23/2020 12:00:00 AM EDT active Alendronate Sodium 70 MG eCW1 ([facility]) Metformin hydrochloride 500 MG Oral Tablet metFORMIN H Cl 500 MG metFORMIN HCl 500 MG 06/23/2020 12:00:00 AM EDT 1.0 {tablet_with_a_meal} active metFORMIN HCl 500 MG eCW1 ([facility]) Metformin hydrochloride 500 MG Oral Tablet Metformin H Cl 500 MG Metformin HCl 500 MG 06/23/2020 12:00:00 AM EDT 1.0 {tablet_with_a_meal} active eCW1 ([facility]) HM Lidocaine Patch 4 % HM Lidocaine Patch 4 % 06/23/2020 12:00:00 AM E DT active HM Lidocaine Patch 4 % eC W1 ([facility]) HM Lidocaine Patch 4 % HM Lidocaine Patch 4 % 06/23/2020 12:00:00 AM E DT active HM Lidocaine Patch 4 % eC W1 ([facility]) Metformin hydrochloride 500 MG Oral Tablet Metformin H Cl 500 MG Metformin HCl 500 MG 06/23/2020 12:00:00 AM EDT 1.0 {tablet_with_a_meal} active Metformin HCl 500 MG eCW1 ([facility]) Metformin hydrochloride 500 MG Oral Tablet metFORMIN H Cl 500 MG metFORMIN HCl 500 MG 06/23/2020 12:00:00 AM EDT 1.0 {tablet_with_a_meal} active metFORMIN HCl 500 MG eCW1 ([facility]) Acetaminophen 325 MG / Hydrocodone Marin trate 5 MG Oral Tablet Hydrocodone- Acetaminophen 5-325 MG Hydrocodone-Acetaminophen 5-325 MG 06/23/2020 12:00:00 AM EDT 1.0 {tablet_as_needed} active Hydrocodone-Acetaminophen 5-325 MG eCW1 ([facility]) HM Lidocaine Patch 4 % HM Lidocaine Patch 4 % 06/23/2020 12:00:00 AM E DT active HM Lidocaine Patch 4 % eC W1 ([facility]) HM Lidocaine Patch 4 % HM Lidocaine Patch 4 % 06/23/2020 12:00:00 AM E DT active HM Lidocaine Patch 4 % eC W1 ([facility]) gabapentin 100 MG Oral Capsule Gabapentin 100 MG Gabapentin 100 MG 06/23/2020 12:00:00 AM EDT 1.0 {capsule} active G abapentin 100 MG eCW1 ([facility]) gabapentin 100 MG Oral Capsule Gabapentin 100 MG Gabapentin 100 MG 06/23/2020 12:00:00 AM EDT 1.0 {capsule} active G abapentin 100 MG eCW1 ([facility]) Alendronic acid 70 MG Oral Tablet Alendronate Sodium 7 0 MG Alendronate Sodium 70 MG 06/23/2020 12:00:00 AM EDT active Alendronate Sodium 70 MG eCW1 ([facility]) Acetaminophen 325 MG / Hydrocodone Marin trate 5 MG Oral Tablet Hydrocodone- Acetaminophen 5-325 MG Hydrocodone-Acetaminophen 5-325 MG 06/23/2020 12:00:00 AM EDT 1.0 {tablet_as_needed} active Hydrocodone-Acetaminophen 5-325 MG eCW1 ([facility]) Alendronic acid 70 MG Oral Tablet Alendronate Sodium 7 0 MG Alendronate Sodium 70 MG 06/23/2020 12:00:00 AM EDT active Alendronate Sodium 70 MG eCW1 ([facility]) gabapentin 100 MG Oral Capsule Gabapentin 100 MG Gabapentin 100 MG 06/23/2020 12:00:00 AM EDT 1.0 {capsule} active G abapentin 100 MG eCW1 ([facility]) gabapentin 100 MG Oral Capsule Gabapentin 100 MG Gabapentin 100 MG 06/23/2020 12:00:00 AM EDT 1.0 {capsule} active G abapentin 100 MG eCW1 ([facility]) HM Lidocaine Patch 4 % HM Lidocaine Patch 4 % 06/23/2020 12:00:00 AM E DT active HM Lidocaine Patch 4 % eC W1 ([facility]) gabapentin 100 MG Oral Capsule Gabapentin 100 MG Gabapentin 100 MG 06/23/2020 12:00:00 AM EDT 1.0 {capsule} active G abapentin 100 MG eCW1 ([facility]) HM Lidocaine Patch 4 % HM Lidocaine Patch 4 % 06/23/2020 12:00:00 AM E DT active HM Lidocaine Patch 4 % eC W1 ([facility]) Metformin hydrochloride 500 MG Oral Tablet metFORMIN H Cl 500 MG metFORMIN HCl 500 MG 06/23/2020 12:00:00 AM EDT 1.0 {tablet_with_a_meal} active metFORMIN HCl 500 MG eCW1 ([facility]) Metformin hydrochloride 500 MG Oral Tablet Metformin H Cl 500 MG Metformin HCl 500 MG 06/23/2020 12:00:00 AM EDT 1.0 {tablet_with_a_meal} active Metformin HCl 500 MG eCW1 ([facility]) Acetaminophen 325 MG / Hydrocodone Marin trate 5 MG Oral Tablet Hydrocodone- Acetaminophen 5-325 MG Hydrocodone-Acetaminophen 5-325 MG 06/23/2020 12:00:00 AM EDT 1.0 {tablet_as_needed} active Hydrocodone-Acetaminophen 5-325 MG eCW1 ([facility]) Metformin hydrochloride 500 MG Oral Tablet metFORMIN H Cl 500 MG metFORMIN HCl 500 MG 06/23/2020 12:00:00 AM EDT 1.0 {tablet_with_a_meal} active metFORMIN HCl 500 MG eCW1 ([facility]) gabapentin 100 MG Oral Capsule Gabapentin 100 MG Gabapentin 100 MG 06/23/2020 12:00:00 AM EDT 1.0 {capsule} active G abapentin 100 MG eCW1 ([facility]) Acetaminophen 325 MG / Hydrocodone Marin trate 5 MG Oral Tablet HYDROcodone- Acetaminophen 5-325 MG HYDROcodone-Acetaminophen 5-325 MG 06/23/2020 12:00:00 AM EDT 1.0 {tablet_as_needed} active HYDROcodone-Acetaminophen 5-325 MG eCW1 ([facility]) gabapentin 100 MG Oral Capsule Gabapentin 100 MG Gabapentin 100 MG 06/23/2020 12:00:00 AM EDT 1.0 {capsule} active G abapentin 100 MG eCW1 ([facility]) HM Lidocaine Patch 4 % HM Lidocaine Patch 4 % 06/23/2020 12:00:00 AM E DT active HM Lidocaine Patch 4 % eC W1 ([facility]) HM Lidocaine Patch 4 % HM Lidocaine Patch 4 % 06/23/2020 12:00:00 AM E DT active HM Lidocaine Patch 4 % eC W1 ([facility]) TENS Therapy Pain Relief 01/03/2020 12:00:00 AM [...] type / Coverage type Policy ID Covered alliance party ID Covered alliance party's relationship to krause Policy Krause Plan Information [place]IC[place] [id number] S [id number] MEDICARE A [id number] Self [id number] A [place] [employer] [id number] S [id number] Medicare P [id number] S [id number] A Today's Options Commercial [id number] Self [id number] WELLCARE [id number] SP [id number] TODAYS OPTIONS [id number] SP [id number] TODAYS OPTIONS [id number] SP [id number] WELLCARE MEDICARE HMO G [id number] Self [id number] MEDICARE C [id number] S [id number] WELLCARE O [id number] S [id number] MEDICARE [id number] SP [id number] Wellcare Commercial [id number] Self [id number] Well Care Medigap Part B [id number] Self [id number] Today's Option Commercial [id number] Self [id number] Wellcare Commercial [id number] Self [id number] Well Care Medigap Part B [id number] Self [id number] Today's Option Commercial [id number] Self [id number] Wellcare Commercial [id number] S elf [id number] Well Care Medicuster Part B [id number] Self [id number] Today's Option Commercial [id number] 983.0 Self [id number] ANSI-Health Maintenance Organization ( O) [id number] ANSI-Medicare Part B [id number] Today's Option Commercial [id number] 983.0 Self [id number] ANSI-Medicare Part B [id number] ANSI-Health Maintenance Organization ( O) [id number] ANSI-Health Maintenance Organization ( O) [id number] ANSI-Medicare Part B [id number] Today's Option Commercial [id number] Self [id number] WELLCARE O [id number] S [id number] Today's Option Commercial [id number] 983.0 Self [id number] Today's Option Commercial [id number] 983.0 Self [id number] Today's Option Commercial [id number] 983.0 Self [id number] Today's Option Commercial [id number] 983.0 Self [id number] Today's Option Commercial [id number] 983.0 Self [id number] Today's Option Commercial [id number] 983.0 Self [id number] TODAYS OPTIONS/[place]IZ[place] O [id number] S [id number] MEDICARE C [id number] S [id number] A TODAYS OPTIONS [id number] SP [id number] MEDICAID [id number] SP [id number] MEDICARE [id number] SP [id number] A Today's Option Commercial [id number] 983.0 Self [id number] Today's Option Commercial [id number] 983.0 Self [id number] TODAYS OPTIONS [id number] [place] [id number] Medicare [place] Primary [id number] Self [id number] [place] MEDICARE PART B C [id number] S [id number] MEDICARE PART A -O/P [id number] 18 [id number] [employer], [facility] C [id number] S [id number] WELLCARE [id number] SP [id number] MEDICARE MEDICARE [id number] Self ELA COUTURE MED ICARE WELLCARE [id number] S [id number] WELLCARE [id number] SP [id number] MEDICARE [id number] SP [id number] A MEDICARE [id number] SP [id number] [facility] [id number] S [id number] MEDICARE [id number] SP [id number] [employer] [id number] S [id number] [place]ICARE - [place] [id number] S [id number] Problems, Conditions, and Diagnoses Code Display Name Description Problem Type Effective Dates Data Source(s) Y92.[address] or not applicable UNSPEC[address] OR NOT APPLICABLE Diagnosis 05/18/2020 07:42:00 PM EDT [facility] [facility] W19.XXXA Unspecified fall, initial encounter UNSP ECIFIED FALL, INITIAL ENCOUNTER Diagnosis 05/18/2020 07:42:00 PM [facility] E11.649 Type 2 diabetes mellitus with hypoglycem ia without coma TYPE 2 DIABETES MELLITUS WITH HYPOGLYCEMIA WITHOUT Diagnosis 05/18/2020 07:42:00 PM ED T [facility] B37.3 Candidiasis of vulva and vagina CANDIDIASIS OF VULVA A ND VAGINA Diagnosis 05/18/2020 07:42:00 PM EDT [facility] D69.6 Thrombocytopenia, unspecified THROMBOCYTOPENIA, UNSPEC IFIED Diagnosis 05/18/2020 07:42:00 PM EDT [facility] F19.10 Other psychoactive substance abuse, unco mplicated OTHER PSYCHOACTIVE SUBSTANCE ABUSE, UNCOMPLICATED Diagnosis 05/18/2020 07:42:00 PM EDT [facility] D72.829 Elevated white blood cell count, unspeci fied ELEVATED WHITE BLOOD CELL COUNT, UNSPECIFIED Diagnosis 05/18/2020 07:42:00 PM EDT [facility] M48.00 Spinal stenosis, site unspecified SPINAL STENOSI S, SITE UNSPECIFIED Diagnosis 05/18/2020 07:42:00 PM EDT [facility] T38.0X5A Adverse effect of glucocorti coids and synthetic analogues, initial encounter ADVERSE EFFECT OF GLUCOCORT/SYNTH ANALOG, INIT Diagnosis 05/18/2020 07:42:00 PM EDT [facility] E11.65 Type 2 diabetes mellitus with hyperglyce lee TYPE 2 DIABETES MELLITUS WITH HYPERGLYCEMIA Diagnosis 05/18/2020 07:42:00 PM EDT [facility] I12.9 Hypertensive chronic kidney disease with stage 1 through stage 4 chronic kidney disease, or unspecified chronic kidney disease HYPERTENSIVE CHRONIC KIDNEY DISEASE W STG 1-4/UNSP Diagnosis 05/18/2020 07:42:00 PM EDT [facility] D63.8 Anemia in other chronic diseases classif ied elsewhere ANEMIA IN OTHER CHRONIC DISEASES CLASSIFIED ELSEWH Diagnosis 05/18/2020 07:42:00 PM ED [facility] E11.51 Type 2 diabetes mellitus wit h diabetic peripheral angiopathy without gangrene TYPE 2 DIABETES W DIABETIC PERIPHERAL ANGIOPATH W/ Diagnosis 05/18/2020 07:42:00 PM [facility] N18.9 Chronic kidney disease, unspecified CHRONIC KIDN EY DISEASE, UNSPECIFIED Diagnosis 05/18/2020 07:42:00 PM [facility] E11.22 Type 2 diabetes mellitus with diabetic c hronic kidney disease TYPE 2 DIABETES MELLITUS W DIABETIC CHRONIC KIDNEY Diagnosis 05/18/2020 07:42:00 PM [facility] 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, not elsewhere classified OT DISORDERS OF PLASMA-PROTEIN METABOLISM, NEC Diagnosis 2020 07:42:00 PM [facility] S22.019A Unspecified fracture of firs t thoracic vertebra, initial encounter for closed fracture UNSP FRACTURE OF FIRST THORACIC VERTEBRA, INIT FOR Diagnosis 05/18/2020 07:42:00 PM [facility] N17.9 Acute kidney failure, unspecified ACUTE KIDNEY F AILURE, UNSPECIFIED Diagnosis 05/18/2020 07:42:00 PM [facility] J44.1 Chronic obstructive pulmonary disease wi th (acute) exacerbation CHRONIC OBSTRUCTIVE PULMONARY DISEASE W (ACUTE) EX Diagnosis 05/18/2020 07:42: 00 PM [facility] J90 Pleural effusion, not elsewhere classifi ed PLEURAL EFFUSION, NOT ELSEWHERE CLASSIFIED Diagnosis 05/18/2020 07:42:00 PM EDT [facility] J98.11 Atelectasis ATELECTASIS Diagnosis 05/18/2020 07:42:00 PM EDT [facility] N39.0 Urinary tract infection, site not specif ied URINARY TRACT INFECTION, SITE NOT SPECIFIED Diagnosis 05/18/2020 07:42:00 PM EDT [facility] J96.21 Acute and chronic respiratory failure wi th hypoxia ACUTE AND CHRONIC RESPIRATORY FAILURE WITH HYPOXIA Diagnosis 05/18/2020 07:42:00 PM EDT [facility] J15.212 Pneumonia due to Methicillin resistant S taphylococcus aureus PNEUMONIA DUE TO METHICILLIN RESISTANT STAPHYLOCOC Diagnosis 05/18/2020 07:42:00 PM EDT [facility] S22.029A Unspecified fracture of seco nd thoracic vertebra, initial encounter for closed fracture UNSP FRACTURE OF SECOND THORACIC VERTEBRA, INIT FO Diagnosis 05/18/2020 07:42:00 PM EDT [facility] M54.5 Low back pain LOW BACK PAIN Diagnosis 05/18/2020 07:42:00 PM EDT [facility] Z99.81 Dependence on supplemental oxygen DEPENDENCE ON SUPPLEMENTAL OXYGEN Diagnosis 05/18/2020 07:42:00 PM EDT [facility] R53.81 Other malaise OTHER MALAISE Diagnosis 05/18/2020 07:42:00 PM EDT [facility] E03.9 Hypothyroidism, unspecified HYPOTHYROIDISM, UNSPECIFIE D Diagnosis 05/18/2020 07:42:00 PM EDT [facility] F41.9 Anxiety disorder, unspecified ANXIETY DISORDER, UNSPEC IFIED Diagnosis 05/18/2020 07:42:00 PM EDT [facility] F17.200 Nicotine dependence, unspecified, uncomp licated NICOTINE DEPENDENCE, UNSPECIFIED, UNCOMPLICATED Diagnosis 05/18/2020 07:42:00 PM EDT [facility] E78.5 Hyperlipidemia, unspecified HYPERLIPIDEMIA, UNSPECIFIE D Diagnosis 05/18/2020 07:42:00 PM EDT [facility] F32.9 Major depressive disorder, single episod e, unspecified MAJOR DEPRESSIVE DISORDER, SINGLE EPISODE, UNSPECI Diagnosis 05/18/2020 07:42:00 PM EDT [facility] J44.9 Chronic obstructive pulmonary disease, u nspecified CHRONIC OBSTRUCTIVE PULMONARY DISEASE, UNSPECIFIED Diagnosis 05/18/2020 07:42:00 PM [facility] Pneumonia, sepsis, needs MRI Pneumonia, sepsis, needs MRI Diagnosis 05/18/2020 04:36:00 PM [facility] Z87.891 Personal history of nicotine dependence PERSONAL HISTORY OF NICOTINE DEPENDENCE Diagnosis 05/18/2020 01:32:00 PM [facility] Z99.81 Dependence on supplemental oxygen DEPENDENCE ON SUPPLEMENTAL OXYGEN Diagnosis 05/18/2020 01:32:00 PM [facility] 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 [place] JAIL (CURRENT) USE OF OPIATE ANALGESIC Diagnosis 05/18/2020 01:32:00 PM [facility] Z79.02 buttermaker (current) use of antithromboti cs/antiplatelets JAIL (CURRENT) USE OF ANTITHROMBOTICS/ANTIPLA Diagnosis 05/18/2020 01:32:00 PM [facility] Z79.899 Other ad terminal 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 K59.00 Constipation, unspecified CONSTIPATION, UNSPECIFIED Di agnosis 05/18/2020 01:32:00 PM [facility] N17.9 Acute kidney failure, unspecified ACUTE KIDNEY F AILURE, UNSPECIFIED Diagnosis 05/18/2020 01:32:00 PM [facility] I16.0 HYPERTENSIVE URGENCY HYPERTENSIVE URGENCY Diagnosis 05/18/2020 01:32:00 PM [facility] G93.41 Metabolic encephalopathy METABOLIC ENCEPHALOPATHY Diag nosis 05/18/2020 01:32:00 PM [facility] G89.29 Other chronic pain OTHER CHRONIC PAIN Diagnosis 09/2020 01:32:00 PM [facility] M54.5 Low back pain LOW BACK PAIN Diagnosis 05/18/2020 01:32:00 PM [facility] D72.829 Elevated white blood cell count, unspeci fied ELEVATED WHITE BLOOD CELL COUNT, UNSPECIFIED Diagnosis 05/18/2020 01:32:00 PM [facility] J18.9 Pneumonia, unspecified organism PNEUMONIA, UNSPECIFIED ORGANISM Diagnosis 05/18/2020 01:32:00 PM [facility] R53.1 Weakness WEAKNESS Diagnosis 05/18/2020 01:32:00 PM [facility] Z45.2 Encounter for adjustment and management of vascular access device ENCOUNTER FOR ADJUSTMENT AND MANAGEMENT OF VAD Diagnosis 021 10:45:00 AM [facility] Z79.899 Other care home (current) drug therapy 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 [place] JAIL (CURRENT) DRUG THERAPY Diagnosis 05/18/2020 10:45:00 AM [facility] N32.89 Other specified disorders of bladder OTH ER SPECIFIED DISORDERS OF BLADDER Diagnosis 05/16/2020 08:11:00 PM [facility] R41.0 Disorientation, unspecified DISORIENTATION, UNSPECIFIE D Diagnosis 05/16/2020 08:11:00 PM [facility] R45.1 Restlessness and agitation RESTLESSNESS AND AGITATION Diagnosis 05/16/2020 08:11:00 PM [facility] K59.03 DRUG INDUCED CONSTIPATION DRUG INDUCED CONSTIPATION Di agnosis 05/16/2020 08:11:00 PM [facility] K21.9 Gastro-esophageal reflux disease without esophagitis GASTRO-ESOPHAGEAL REFLUX DISEASE WITHOUT ESOPHAGIT Diagnosis 05/16/2020 08:11:00 PM [facility] M54.6 Pain in thoracic spine PAIN IN THORACIC SPINE Diagnosi s 05/16/2020 08:11:00 PM [facility] E78.5 Hyperlipidemia, unspecified HYPERLIPIDEMIA, UNSPECIFIE D Diagnosis 05/16/2020 08:11:00 PM [facility] R26.81 Unsteadiness on feet UNSTEADINESS ON FEET Diagnosis 05/16/2020 08:11:00 PM [facility] E11.649 Type 2 diabetes mellitus with hypoglycem ia without coma TYPE 2 DIABETES MELLITUS WITH HYPOGLYCEMIA WITHOUT Diagnosis 05/16/2020 08:11:00 PM [facility] R53.81 Other malaise OTHER MALAISE Diagnosis 05/16/2020 08:11:00 PM [facility] J96.21 Acute and chronic respiratory failure wi th hypoxia ACUTE AND CHRONIC RESPIRATORY FAILURE WITH HYPOXIA Diagnosis 05/16/2020 08:11:00 PM [facility] A41.9 Sepsis, unspecified organism SEPSIS, UNSPECIFIED ORGAN ISM Diagnosis 05/16/2020 08:11:00 PM [facility] J15.212 Pneumonia due to Methicillin resistant S taphylococcus aureus PNEUMONIA DUE TO METHICILLIN RESISTANT STAPHYLOCOCCUS AUREUS Diagnosis 07/2020 08:11:00 PM [facility] Z86.14 Personal history of Methicil criss resistant Staphylococcus aureus infection PERSONAL HISTORY OF METHICILLIN RESIS STAPH INFECT Diagnosis 05/10/2020 05:30:00 PM [facility] Z91.14 Patient's other noncompliance with medic ation regimen PATIENT'S OTHER NONCOMPLIANCE WITH MEDICATION NUZHAT Diagnosis 05/10/2020 05:30:00 PM [facility] Z79.51 assisted (current) use of inhaled stero ids JAIL (CURRENT) USE OF INHALED STEROIDS Diagnosis 05/10/2020 05:30:00 PM [facility] Z91.81 History of falling HISTORY OF FALLING Diagnosis 05:30:00 PM [facility] Z87.448 Personal history of other diseases of ur inary system PERSONAL HISTORY OF OTHER DISEASES OF URINARY SYST Diagnosis 05/10/2020 05:30:[address] [facility] I12.9 Hypertensive chronic kidney disease with stage 1 through stage 4 chronic kidney disease, or unspecified chronic kidney disease HYPERTENSIVE CHRONIC KIDNEY DISEASE W STG 1-4/UNSP Diagnosis 05/10/2020 05:30:00 PM [facility] K44.9 Diaphragmatic hernia without obstruction or gangrene DIAPHRAGMATIC HERNIA WITHOUT OBSTRUCTION OR GANGRE Diagnosis 05/10/2020 05:30:00 PM [facility] D64.9 Anemia, unspecified ANEMIA, UNSPECIFIED Diagnosis 0 05/10/2020 05:30:00 PM [facility] R59.1 Generalized enlarged lymph nodes GENERALIZED ENL ARGED LYMPH NODES Diagnosis 05/10/2020 05:30:00 PM [facility] F17.210 Nicotine dependence, cigarettes, uncompl icated NICOTINE DEPENDENCE, CIGARETTES, UNCOMPLICATED Diagnosis 05/10/2020 05:30:00 PM [facility] R41.3 Other amnesia OTHER AMNESIA Diagnosis 05/10/2020 05:30:00 PM [facility] I25.84 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 CORONARY ATHEROSCLEROSIS DUE TO CALCIFIED CORONARY Diagnosis 05/10/2020 05:30:0 0 PM [facility] F41.9 Anxiety disorder, unspecified ANXIETY DISORDER, UNSPEC IFIED Diagnosis 05/10/2020 05:30:00 PM [facility] F32.9 Major depressive disorder, single episod e, unspecified MAJOR DEPRESSIVE DISORDER, SINGLE EPISODE, UNSPECI Diagnosis 05/10/2020 05:30:00 PM [facility] E03.9 Hypothyroidism, unspecified HYPOTHYROIDISM, UNSPECIFIE D Diagnosis 05/10/2020 05:30:00 PM [facility] I73.9 Peripheral vascular disease, unspecified PERIPHERAL VASCULAR DISEASE, UNSPECIFIED Diagnosis 05/10/2020 05:30:00 PM [facility] E78.00 PURE HYPERCHOLESTEROLEMIA, UNSPECIFIED P URE HYPERCHOLESTEROLEMIA, UNSPECIFIED Diagnosis 05/10/2020 05:30:00 PM [facility] 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, not elsewhere classified OT DISORDERS OF PLASMA-PROTEIN METABOLISM, NEC Diagnosis 2020 05:30:00 PM [facility] R63.0 Anorexia ANOREXIA Diagnosis 05/10/2020 05:30:00 PM [facility] R80.9 Proteinuria, unspecified PROTEINURIA, UNSPECIFIED Diag nosis 05/10/2020 05:30:00 PM [facility] R26.2 Difficulty in walking, not elsewhere cla ssified DIFFICULTY IN WALKING, NOT ELSEWHERE CLASSIFIED Diagnosis 05/10/2020 05:30:00 PM [facility] M48.061 SPINAL STENOSIS, LUMBAR REGION WITHOUT N EUROGENIC SPINAL STENOSIS, LUMBAR REGION WITHOUT NEUROGENIC Diagnosis 05/10/2020 05:30:00 PM [facility] E11.65 Type 2 diabetes mellitus with hyperglyce lee TYPE 2 DIABETES MELLITUS WITH HYPERGLYCEMIA Diagnosis 05/10/2020 05:30:00 PM [facility] E87.8 Other disorders of electroly te and fluid balance, not elsewhere classified OT DISORDERS OF ELECTROLYTE AND FLUID BALANCE, NE Diagnosis 05/10/2020 05:30:00 PM [facility] R79.89 Other specified abnormal findings of blo od chemistry OTHER SPECIFIED ABNORMAL FINDINGS OF BLOOD BUTTON SAWYER Diagnosis 05/10/2020 05:30:00 PM [facility] E86.0 Dehydration DEHYDRATION Diagnosis 05/10/2020 05:30:00 PM [facility] N18.30 CHRONIC KIDNEY DISEASE, STAGE 3 UNSPECIF IED CHRONIC KIDNEY DISEASE, STAGE 3 UNSPECIFIED Diagnosis 05/10/2020 05:30:00 PM [facility] I31.3 Pericardial effusion (noninflammatory) P ERICARDIAL EFFUSION (NONINFLAMMATORY) Diagnosis 05/10/2020 05:30:00 PM [facility] E87.1 Hypo-osmolality and hyponatremia HYPO-OSMOLALITY AND HYPONATREMIA Diagnosis 05/10/2020 05:30:00 PM [facility] J44.0 Chronic obstructive pulmonar y disease with acute lower respiratory infection CHR OBSTRUCTIVE PULMON DISEASE WITH (ACUTE) LOWER Diagnosis 05/10/2020 05:30:00 PM [facility] Z20.822 CONTACT WITH AND (SUSPECTED) EXPOSURE TO COVID-19 CONTACT WITH AND (SUSPECTED) EXPOSURE TO COVID-19 Diagnosis 05/10/2020 12:22:00 PM [facility] 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 [place] JAIL (CU RRENT) USE OF INSULIN Diagnosis 05/10/2020 12:22:00 PM [facility] R74.02 ELEVATION OF LEVELS OF LACTIC ACID DEHYD ROGENASE [ ELEVATION OF LEVELS OF LACTIC ACID DEHYDROGENASE [ Diagnosis 05/10/2020 12:22:00 PM [facility] E86.1 Hypovolemia HYPOVOLEMIA Diagnosis 05/10/2020 12:22:00 PM [facility] G89.29 [id number] Other chronic pain Problem 06/30/2020 12:00: 00 AM EDT [facility] ([facility]) F17.200 [id number] Current smoker Problem 06/30/2020 12:00:00 A M EDT [facility] ([facility]) I10 Essential hypertension Essential hypertension Problem 06/23/2020 12:00:00 AM EDT [facility] ([facility]) E78.5 [id number] Dyslipidemia Problem 06/23/2020 12:00:00 AM EDT eC1 ([facility]) J43.9 [id number] Pulmonary emphysema, unspecified emphysem a type Problem 06/23/2020 12:00:00 AM EDT eCW1 ([facility]) E03.9 [id number] Hypothyroidism, unspecified type Problem 06/23/2020 12:00:00 AM EDT eCW1 ([facility]) E11.9 [id number] Type 2 diabetes mellitus without complica tions Problem 06/23/2020 12:00:00 AM EDT eC1 ([facility]) Z79.52 [id number] Current chronic use of systemic steroi ds Problem 06/23/2020 12:00:00 AM EDT [facility] ([facility]) F41.8 Anxiety depression Anxiety with depression Problem 06/23/2020 12:00:00 AM EDT [facility] ([facility]) Surgeries/Procedures Procedure Description Date Indications Data Source(s) Assistance with Respiratory Ventilation, Less than 24 Consecutive Hours, Continuous Positive Airway Pressure 06/08/2020 12:00:00 AM [facility] Transfusion of Nonautologous Red Blood C ells into Peripheral Vein, Percutaneous Approach 05/25/2020 12:00:00 AM [facility] Drainage of Bladder with Drainage Device, Via Natural or Art ificial Opening 05/16/2020 12:00:00 AM [facility] Introduction of Analgesics, Hypnotics, S edatives into Subcutaneous Tissue, Percutaneous Approach 05/16/2020 12:00:00 AM [facility] Introduction of Insulin into Subcutaneous Tissue, Percutaneo us Approach 05/10/2020 12:00:00 AM [facility] Introduction of Anti-inflammatory into R espiratory Tract, Via Natural or Artificial Opening 05/10/2020 12:00:[address] [facility] Muscle Performance Treatment of Musculoskeletal System - Who le Body 05/10/2020 12:00:00 AM [facility] Introduction of Other Therapeutic Substa nce into Peripheral Vein, Percutaneous Approach 05/10/2020 12:00:00 AM [facility] Introduction of Other Anti-infective int o Peripheral Vein, Percutaneous Approach 05/10/2020 12:00:00 AM [facility] Spirometry 12/15/2019 12:00:00 AM JIMENA RODRIGUEZ ([facility], ) Results ID Date Data Source [id number] 11/16/2020 11:12:00 PM EDT [facility] Name Value Range Interpretation Code Description Data Rosa rce(s) Supporting Document(s) SARS coronavirus 2 RNA [Presence] in Res piratory specimen by MIRYAM with probe detection NEGATIVE [facility] This lab was ordered by [facility] a nd reported by [facility]. ID Date Data Source [id number] 11/15/2020 06:35:00 PM EDT [facility] Name Value Range Interpretation Code Description Data Rosa rce(s) Supporting Document(s) SARS coronavirus 2 RNA [Presence] in Res piratory specimen by MIRYAM with probe detection NEGATIVE [facility] This lab was ordered by [facility] a nd reported by [facility]. ID Date Data Source [id number] 11/06/2020 09:28:00 PM EDT [facility] Name Value Range Interpretation Code Description Data Rosa rce(s) Supporting Document(s) SARS-CoV-2 (COVID 19) NEGATIVE - SARS-CoV-2 (COVID19) [facility] This lab was ordered by [facility] a nd reported by [facility]. ID Date Data Source [id number] 11/06/2020 03:54:00 PM EDT [facility] Name Value Range Interpretation Code Description Data Rosa rce(s) Supporting Document(s) SARS-CoV-2 (COVID 19) NEGATIVE - SARS-CoV-2 (COVID19) [facility] This lab was ordered by [facility] a nd reported by [facility]. ID Date Data Source [id number] 11/05/2020 08:28:00 PM EDT [facility] Name Value Range Interpretation Code Description Data Rosa rce(s) Supporting Document(s) SARS coronavirus 2 RNA [Presence] in Res piratory specimen by MIRYAM with probe detection NEGATIVE [facility] This lab was ordered by [facility] a nd reported by [facility]. ID Date Data Source [id number] 10/29/2020 07:58:00 PM EDT [facility] Name Value Range Interpretation Code Description Data Rosa rce(s) Supporting Document(s) SARS coronavirus 2 RNA [Presence] in Res piratory specimen by MIRYAM with probe detection NEGATIVE [facility] This lab was ordered by [facility] a nd reported by [facility]. ID Date Data Source [id number] 10/26/2020 10:19:00 PM EDT [facility] Name Value Range Interpretation Code Description Data Rosa rce(s) Supporting Document(s) SARS coronavirus 2 RNA [Presence] in Res piratory specimen by MIRYAM with probe detection NEGATIVE [facility] This lab was ordered by [facility] a nd reported by [facility]. ID Date Data Source [id number] 10/18/2020 02:44:00 AM EDT [facility] Name Value Range Interpretation Code Description Data Rosa rce(s) Supporting Document(s) SARS-CoV-2 (COVID 19) NEGATIVE - SARS-CoV-2 (COVID19) [facility] This lab was ordered by [facility] a nd reported by [facility]. ID Date Data Source [id number] 10/12/2020 10:15:00 PM EDT [facility] Name Value Range Interpretation Code Description Data Rosa rce(s) Supporting Document(s) SARS coronavirus 2 RNA [Presence] in Res piratory specimen by MIRYAM with probe detection NEGATIVE [facility] This lab was ordered by [facility] a nd reported by [facility]. ID Date Data Source [id number] 10/11/2020 02:34:00 AM EDT [facility] Name Value Range Interpretation Code Description Data Rosa rce(s) Supporting Document(s) SARS coronavirus 2 RNA [Presence] in Res piratory specimen by MIRYAM with probe detection NEGATIVE [facility] This lab was ordered by [facility] a nd reported by [facility]. ID Date Data Source [id number] 10/07/2020 08:36:00 PM EDT [facility] Name Value Range Interpretation Code Description Data Rosa rce(s) Supporting Document(s) SARS-CoV-2 (COVID 19) NEGATIVE - SARS-CoV-2 (COVID19) [facility] This lab was ordered by [facility] a nd reported by [facility]. ID Date Data Source [id number] 10/04/2020 07:47:00 PM EDT [facility] Name Value Range Interpretation Code Description Data Rosa rce(s) Supporting Document(s) SARS coronavirus 2 RNA [Presence] in Res piratory specimen by MIRYAM with probe detection NEGATIVE [facility] This lab was ordered by [facility] a nd reported by [facility]. ID Date Data Source [id number] 10/01/2020 08:07:00 PM EDT [facility] Name Value Range Interpretation Code Description Data Rosa rce(s) Supporting Document(s) SARS coronavirus 2 RNA [Presence] in Res piratory specimen by MIRYAM with probe detection NEGATIVE [facility] This lab was ordered by [facility] a nd reported by [facility]. ID Date Data Source [id number] 09/24/2020 02:20:00 PM EDT [facility] Name Value Range Interpretation Code Description Data Rosa rce(s) Supporting Document(s) SARS coronavirus 2 RNA [Presence] in Res piratory specimen by MIRYAM with probe detection NEGATIVE [facility] This lab was ordered by [facility] a nd reported by [facility]. ID Date Data Source [id number] 09/22/2020 11:07:00 AM EDT [facility] Name Value Range Interpretation Code Description Data Rosa rce(s) Supporting Document(s) SARS-CoV-2 (COVID 19) NEGATIVE - SARS-CoV-2 (COVID19) [facility] This lab was ordered by [facility] a nd reported by [facility]. ID Date Data Source [id number] 09/02/2020 02:38:00 PM EDT [facility] Name Value Range Interpretation Code Description Data Rosa rce(s) Supporting Document(s) SARS-CoV-2 (COVID 19) NEGATIVE - SARS-CoV-2 (COVID19) [facility] This lab was ordered by [facility] a nd reported by [facility]. ID Date Data Source [id number] 08/27/2020 12:00:00 PM EDT [facility] Name Value Range Interpretation Code Description Data Rosa rce(s) Supporting Document(s) SARS coronavirus 2 RNA [Presence] in Res piratory specimen by MIRYAM with probe detection NEGATIVE [facility] This lab was ordered by [facility] a nd reported by [facility]. ID Date Data Source [id number] 08/23/2020 01:29:00 PM EDT [facility] Name Value Range Interpretation Code Description Data Rosa rce(s) Supporting Document(s) SARS-CoV-2 (COVID 19) NEGATIVE - SARS-CoV-2 (COVID19) [facility] This lab was ordered by [facility] a nd reported by [facility]. ID Date Data Source [id number] 08/17/2020 06:30:00 PM EDT [facility] Name Value Range Interpretation Code Description Data Rosa rce(s) Supporting Document(s) SARS coronavirus 2 RNA [Presence] in Res piratory specimen by MIRYAM with probe detection NEGATIVE [facility] This lab was ordered by [facility] a nd reported by [facility]. ID Date Data Source [id number] 08/13/2020 01:19:00 AM EDT [facility] Name Value Range Interpretation Code Description Data Rosa rce(s) Supporting Document(s) SARS coronavirus 2 RNA [Presence] in Res piratory specimen by MIRYAM with probe detection NEGATIVE [facility] This lab was ordered by [facility] a nd reported by [facility]. ID Date Data Source [id number] 06/14/2020 04:54:00 PM EDT [facility] Patient: ELA PONCEatio n Report - [facility].VisitID: [id number] [place] [address] [phone], FRegistration Date/Time: 05/10/2020 11:01 Weight:52.1 kg (E). Height/Length:62 inches (E). BMI:21 PAST HISTORYProblems:Diabetes Mellitus.COPD - Chronic Obstructive Pulmonary Disease.Constipation.Pneumonia.Lung Disease.Hypertension. 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 FAMILY HISTORYNegative. No significant family medical history. (Electronically signed by Sebastian Kingston 05/10/2020 18:30) Name Value Range Interpretation Code Description Data Rosa rce(s) Supporting Document(s) ID Date Data Source [id number] 06/14/2020 03:44:00 PM EDT [facility] Name Value Range Interpretation Code Description Data Rosa rce(s) Supporting Document(s) SARS-CoV-2 (COVID 19) NEGATIVE - SARS-CoV-2 (COVID19) [facility] This lab was ordered by [facility] a nd reported by [facility]. ID Date Data Source [id number] 06/12/2020 11:27:00 AM EDT [address] [id number] NOTE FOLLOW UPPATIENT NAME: ELA PONCE CB PHYSICIAN: MICHAEL WANG MDAUTHOR: Selma Caballero. DATE: 05/18/20 MR#: [id number] NOTE DATE: 06/12/20 RM#: [id number] TIME: 1128 : 45Progress Note Follow UpSummaryPrescription filled and family and patient's request for Plavix 75 mg p.o.daily levothyroxine 75 mcg p.o. daily hydroxyzine 10 mg 3 times daily as neededfor anxiety. Lisinopril was not filled at the family's request due to renaldysfunction and hyperkalemia. I called and spoke with the pharmacist aboutthis personally at [facility] and this order is being canceled.DATE SIGNED: 06/12/20 Electronically SignedTIME SIGNED: 112 CR FAJARDO Name Value Range Interpretation Code Description Data Rosa rce(s) Supporting Document(s) ID Date Data Source [id number] 06/11/2020 07:45:00 PM EDT [address] [id number] SUMMARYPATIENT NAME: ELA PONCE MR#: [id number] PHYSICIAN: MICHAEL WANG MDAUTHOR: Georgia Denis DO DATE: 05/18/20 RM#: [id number] DATE: 06/11/20 : 45Summary of HospitalizationReason for Admission[facility] for MRIHospital CoursePatient is 74 years old female with past medical history significant for COPD,spinal stenosis, anxiety/depression, dyslipidemia, type 2 diabetes, nicotinedependence, hypothyroidism, CKD, peripheral vascular disease and nicotinedependence who was initially admitted at [facility] for sepsis treatmentsecondary to pneumonia. Patient had extreme deconditioning, unsteady gait andfrequent falls. Patient was noted to have severe tenderness over lumbar andthoracic spine in kassidy setting of worsening CRP and leukocytosis. [facility] for [facility] to rule out discitis.Upon arrival at the [facility], patient refused MRI andpatient was brought back to [facility]. At [facility], patient becameagitated and combative and patient was given B52. Patient was found to have UTIwith suspision of pylonephritis. Patient started on vanco/zosyn. [facility]. Patient continued on broad spectrum antibiotics whilewaiting for cultures. Attempts of MRI were not successful due to frequentagitation. MRI later was performed and demonstrated no evidence of discitis.Patient's worsening pain was likely due to subacute vertevral body fracture.MRSA screening was negative. Vanco was discontinued. CRP continuesdowntrending. Blood cultures came back negative. Patient was planned fordischarging back to [facility] to continue short-term rehab. However, therewas [...] was transfusedafter obtaining consent. Continuing [facility] bedas per patient's wish. [...] her son agreed for subacute rehab facility [facility] or [facility] if it is available. Case management had sent outreferrals to broaden the search. Unfortunately, patient became unhappy on 06/11/2020 with regarding to her hospitalization stay. Patient contracted her son kinza to [facility] and bring her home. Risks and benefits of AMA explained explicitl yto patient and her son. They voiced understandings of the risks and benefitsbut they insisted on signing out AMA.Decision was made to initially transfer patient to [facility] for an MRI to be doneto rule out discitis and then [facility] patient refused the MRI and patient was broughtback to [facility]. At [facility] patient became agitated and somewhatcombative sustained ecchymosis in bilateral upper extremities. Patient had momo given B-52. Decision was made to transfer patient to [facility] for furthermanagement. In route to [facility] again for the second time patient becameagitated. At [facility] patient was also found to have UTI, CT of theabdomen and pelvis showed some questionable/possible pyelonephritis. Patientwas given vancomycin and Zosyn at [facility] and transferred to [facility].When I evaluated patient patient was [...] or herniation at the L1-2 level. The Y2faxzdm exit the neural foramina without compression.A diffuse [...] CompleteAdult Echocardiogram ReportName: ELA PONCE BStudy Date: 06/08/20205548NME16UAK: 1945 Gender: FemaleAge: 74 yrs Weight: 119 [...] Fall8. Chronic obstructive pulmonary disease with hypoxia9. Mvesbqvoaq99. Bceonjb79. Anemia of chronic sirftdb00. Dmvyoydgepp66. HypothyroidismDiagnoses (Other)Past Pertinent History1. Diabetes2. Chronic obstructive pulmonary disease with hypoxia3. Depression4. Spinal stenosis5. Anxiety6. Anemia of chronic disease7. Hypothyroidism8. PVD (peripheral vascular disease)9. Qretlvbd20. Chronic anemiaPatient's Discharge ConditionVital SignsVital Signs-LastResult Date [...] taking the following medications:PredniSONE (PREDNISONE) 10 MG MHVPEU13 MILLIGRAM Orally DAILYReferralsOrdered ReferralsG[facility] First available sop[address] [place] [address] [facility] [employer] SN, PT, BUSINESS RISK CONSULTANT.Time spent by provider to complete discharge > 30 minutesDATE SIGNED: 06/11/20 Electronically SignedTIME SIGNED: 2126 GEORGIA DENIS DO Name Value Range Interpretation Code Description Data Rosa rce(s) Supporting Document(s) ID Date Data Source [id number] 06/11/2020 06:31:00 PM EDT [facility] Name Value Range Interpretation Code Description Data Rosa rce(s) Supporting Document(s) GLU 128 mg/dL 70-110 [facility] Patients taking Sulfasalazine may have f alsely depressedGlucose levels. Patients taking Sulfapyridine may havefalsely elevated Glucose levels. Patients should be drawnfor Glucose before the initial administration of eitherdrug. BUN 74 mg/dL 7-23 [facility] CRE 2.170 mg/dL 0.500-1.300 [facility] GFR 24 mL/min [facility] CHLORIDE 108 mmol/L 99-110 [facility] NA 142 mmol/L 136-147 [facility] POTASSIUM 5.5 mmol/L 3.5-5.1 [facility] TCO2 24 mmol/L 20-33 [facility] ANION GAP 15.5 10.0-20.0 [facility] CA 8.3 mg/dL 8.3-10.7 [facility] ID Date Data Source [id number] 06/11/2020 04:59:00 PM EDT [facility] Name Value Range Interpretation Code Description Data Rosa rce(s) Supporting Document(s) FGLU 139 mg/dL 70-110 [facility] ID Date Data Source [id number] 06/11/2020 12:28:00 PM EDT [address] [id number] NOTEPATIENT NAME: ELA PONCE PHYSICIAN: MICHAEL WANG MDAUTHOR: Shankar Denis DO. DATE: 05/18/20 MR#: [id number] NOTE DATE: 06/11/20 RM#: [id number] TIME: 1535 : 45SubjectiveEvents Since Last EntryPatient seen and examined in room today. Patient denies acute complaints.Patient is currently on 3 L nasal cannula, and patient denies any difficultybreathing. Patient does admit that she has not been drinking enough fluid likeshe did few days ago. Denies any fever or chill.ObjectiveVital SignsVital Signs-24 HRS06/10644768 0739 2023 2139 2200Temp 98.7 99.2 98.5Pulse 69 74 77Resp 13 16B/P 125/55 137/50 130/88B/P MeanPulse Ox 96 95O2 Delivery Nasal cannulaO2 Flow Rate 0FGwU57106/11000 0200 0400 0631 0804Temp 97.9 97.9 98.5 97.9Pulse 74 74Resp 17B/P 163/72 163/72B/P MeanPulse Ox 95O2 Delivery Nasal cannulaO2 Flow Rate 0VDqN941/02 06/11 05469233 7529 0924 0942Temp 97.7Pulse 74 72Resp 20B/P 163/72 163/72 150/63B/P MeanPulse Ox 94O2 Delivery Nasal cannula Nasal cannulaO2 Flow Rate 3L 5IOiC1Amfhwz/OutputIntake/Output Summary 24 hours06/10 1900 06/11 0700Intake Total [...] 0.1Abs Immat Gran (auto) (0.0 - 0.1 0.01d87D2/uL)Absolute Neuts (auto) (1.2 - 7.6 11.62 Hx10E3/uL)Absolute Lymphs (auto) (1.0 - 3.5 0.27 Lx10E3/uL)Absolute Monos (auto) (0.1 - 1.0 0.46b20K7/uL)Absolute Eos (auto) (0.1 - 0.7 x10E3/uL) 0.00 LAbsolute Basos (auto) (0.0 - 0.1 0.29h23B7/uL)Nucleated RBC % (auto) (0 %) 0Assessment/PlanProblem List1. [...] shortly [facility] the [facility]. [facility] Patient denied hitting her head.- CT head [...] management. Mr. Braden is able to arrange / supportfor patient after discharge. Patient and Mr. [...] codeProlong Service Time* 30 minutes of prolong rznq-yv-fzrf time spent with patient's son, Mr. Braden.* Discussed: Currently medical management and discharge planning.VTE ProphylaxisVTE Prophylaxis: Continue heparin.DATE SIGNED: 06/11/20 Electronically SignedTIME SIGNED: 2126 GEORGIA DENIS DO Name Value Range Interpretation Code Description Data Rosa rce(s) Supporting Document(s) ID Date Data Source [id number] 06/11/2020 11:09:00 AM [facility]T [facility] Name Value Range Interpretation Code Description Data Rosa rce(s) Supporting Document(s) FGLU 256 mg/dL 70-110 [facility] ID Date Data Source [id number] 06/11/2020 08:25:00 AM EDT [facility] Name Value Range Interpretation Code Description Data Rosa rce(s) Supporting Document(s) FGLU 384 mg/dL 70-110 [facility] ID Date Data Source [id number] 06/11/2020 05:53:00 AM EDT [facility] Name Value Range Interpretation Code Description Data Rosa rce(s) Supporting Document(s) GLU 250 mg/dL 70-110 [facility] Patients taking Sulfasalazine may have f alsely depressedGlucose levels. Patients taking Sulfapyridine may havefalsely elevated Glucose levels. Patients should be drawnfor Glucose before the initial administration of eitherdrug. BUN 68 mg/dL 7-23 [facility] CRE 1.860 mg/dL 0.500-1.300 [facility] GFR 28 mL/min [facility] CHLORIDE 106 mmol/L 99-110 [facility] NA 140 mmol/L 136-147 [facility] POTASSIUM 5.2 mmol/L 3.5-5.1 [facility] TCO2 26 mmol/L 20-33 [facility] ANION GAP 13.2 10.0-20.0 [facility] CA 8.2 mg/dL 8.3-10.7 [facility] ID Date Data Source [id number] 06/11/2020 05:47:00 AM EDT [facility] Name Value Range Interpretation Code Description Data Rosa rce(s) Supporting Document(s) WBC 12.30 x10E3/uL 4.0-10.5 [facility] RBC 3.57 x10E6/uL 4.20-5.40 [facility] Hemoglobin 10.8 g/dL 12.0-16.0 [facility] Hematocrit 34.1 % 37.0-47.0 [facility] MCV 95.5 fL 81.0-99.0 [facility] MCH 30.3 pg 27.0-31.0 [facility] MCHC 31.7 g/dL 32.7-35.6 [facility] RDW 17.2 % 11.5-14.0 [facility] Platelet count 220 x10E3/uL 150-450 [facility] ital MPV 9.8 fl 6.9-9.5 [facility] Neutrophils 94.5 % 34-64 [facility] Lymphocytes 2.2 % 25-45 [facility] Monocytes 2.4 % 1.7-10.6 [facility] Eosinophils 0 % 0.4-7.0 [facility] Basophils 0.1 % 0.1-2.0 [facility] Imm. Gran. 0.8 % 0.1-2.0 [facility] Abs. Neutro. 11.62 x10E3/uL 1.2-7.6 [facility] Abs. Lymph. 0.27 x10E3/uL 1.0-3.5 [facility] Abs. [place]. 0.30 x10E3/uL 0.1-1.0 [facility] Abs. Eosin. 0.00 x10E3/uL 0.1-0.7 [facility] Abs. Baso. 0.01 x10E3/uL 0.0-0.1 [facility] Abs. Imm. Gran. 0.10 x10E3/uL 0.0-0.1 N [facility] spital ANRBC% 0 % 0 [facility] DIFFERENTIAL CONFIRMED BY SLIDE REVIEW. ID Date Data Source [id number] 06/11/2020 01:54:00 AM EDT [facility] Patient: ELA PONCEatio n Report - [facility].VisitID: [id number] [place] [address] [phone], FRegistration Date/Time: 05/18/2020 13:00 Weight:52.1 kg (E). [...] Name Value Range Interpretation Code Description Data [facility] rce(s) Supporting Document(s) ID Date Data Source [id number] 06/10/2020 08:18:00 PM EDT [facility] Name Value Range Interpretation Code Description Data [facility] rce(s) Supporting Document(s) GLU 313 mg/dL 70-110 [facility] Patients taking Sulfasalazine may have f alsely depressedGlucose levels. Patients taking Sulfapyridine may havefalsely elevated Glucose levels. Patients should be drawnfor Glucose before the initial administration of eitherdrug. BUN 65 mg/dL 7-23 [facility] CRE 2.010 mg/dL 0.500-1.300 [facility] GFR 26 mL/min [facility] CHLORIDE 105 mmol/L 99-110 [facility] NA 139 mmol/L 136-147 [facility] POTASSIUM 5.4 mmol/L 3.5-5.1 [facility] TCO2 26 mmol/L 20-33 [facility] ANION GAP 13.4 10.0-20.0 [facility] CA 8.0 mg/dL 8.3-10.7 [facility] ID Date Data Source [id number] 06/10/2020 10:25:00 AM EDT [address] [id number] NOTEPATIENT NAME: COUTURE,ELA BATTENDING PHYSICIAN: MICHAEL WANG MDAUTHOR: Shankar Denis DO. DATE: 05/18/20 MR#: [id number] NOTE DATE: 06/10/20 RM#: [id number] TIME: 1114 : 45SubjectiveEvents Since Last EntryPatient seen and examined in room today. Patient's mentation is at baseline.Currently patient oxygen is maintained with 3L during daytime. Yesterdaypatient required 5L oxygen at night. Patient denies acute complaint. Patienthas decreased urine output yesterday.ObjectiveVital SignsVital Signs-24 HRS06/09200 1400 1401 1600 1601Temp 97.6 98.0Pulse 74 67 67Resp 18 14 16B/P 153/58 130/51 121/81B/P MeanPulse Ox 91 95 93O2 DeliveryO2 Flow NspiFtQ18606/09801 2000 1999 2015 2200Temp 99.7Pulse 74 73 70 72 73Resp 14 20 13 16B/P 122/44 121/50 128/30 128/30 119/64B/P MeanPulse Ox 94 94 95 94O2 DeliveryO2 Flow YotvOsV446/30 06/09 06/10 06/10 05/605649 3625 0000 0000 0200Temp 98.4 98.8Pulse 68 72Resp 13 13B/P 130/51 136/56B/P MeanPulse Ox 93 87O2 Delivery Nasal cannulaO2 Flow Rate 4ZBcW03706/10004558 6785 0400 0600 0600Temp 97.9 98.3 98.3Pulse 69 72Resp 13 16B/P 142/121 131/58B/P MeanPulse Ox 93 97O2 DeliveryO2 Flow UwysSvX68706/10 05/753752 2477 0816 0818 09 03Temp 97.5Pulse 69 72 72Resp 17B/P 134/57 136/72 136/72 136/72B/P MeanPulse Ox 93O2 Delivery Nasal cannulaO2 Flow Rate 8YBbP8Tqmyjr/OutputIntake/Output Summary 24 hours06/09 1900 06/10 0700Intake Total 480Output Total 250Balance [...] evaluatePsych/Mental Status unable to evaluateResultsLaboratory DataRecent Labs-24 hours201870MatqhztkeReilhx (136 - 147 mmol/L) 138Potassium (3.5 - [...] shortly after the event. Patient landed on [employer]. Patient denied hitting her head.- CT head [...] Name Value Range Interpretation Code Description Data [facility] Document(s) ID Date Data Source [id number] 06/10/2020 06:29:00 AM EDT [facility] Name Value Range Interpretation Code Description Data [facility] Supporting Document(s) GLU 326 mg/dL 70-110 [facility] Patients taking Sulfasalazine may have f alsely depressedGlucose levels. Patients taking Sulfapyridine may havefalsely elevated Glucose levels. Patients should be drawnfor Glucose before the initial administration of eitherdrug. BUN 54 mg/dL 7-23 [facility] CRE 1.900 mg/dL 0.500-1.300 [facility] GFR 27 mL/min [facility] CHLORIDE 102 mmol/L 99-110 [facility] NA 138 mmol/L 136-147 [facility] POTASSIUM 4.7 mmol/L 3.5-5.1 [facility] TCO2 29 mmol/L 20-33 [facility] ANION GAP 11.7 10.0-20.0 [facility] CA 8.1 mg/dL 8.3-10.7 [facility] ID Date Data Source [id number] 06/10/2020 06:13:00 AM EDT [facility] Name Value Range Interpretation Code Description Data Rosa rce(s) Supporting Document(s) WBC 10.40 x10E3/uL 4.0-10.5 [facility] RBC 3.28 x10E6/uL 4.20-5.40 [facility] Hemoglobin 9.9 g/dL 12.0-16.0 [facility] Hematocrit 31.3 % 37.0-47.0 [facility] MCV 95.4 fL 81.0-99.0 [facility] MCH 30.2 pg 27.0-31.0 [facility] MCHC 31.6 g/dL 32.7-35.6 [facility] RDW 17.4 % 11.5-14.0 [facility] Platelet count 200 x10E3/uL 150-450 N [facility] ital MPV 10.0 fl 6.9-9.5 [facility] Neutrophils 96.1 % 34-64 [facility] Lymphocytes 2.7 % 25-45 [facility] Monocytes 0.7 % 1.7-10.6 [facility] Eosinophils 0 % 0.4-7.0 [facility] Basophils 0 % 0.1-2.0 [facility] Imm. Gran. 0.5 % 0.1-2.0 [facility] Abs. Neutro. 10.00 x10E3/uL 1.2-7.6 [facility] Abs. Lymph. 0.28 x10E3/uL 1.0-3.5 [facility] Abs. [place]. 0.07 x10E3/uL 0.1-1.0 [facility] Abs. Eosin. 0.00 x10E3/uL 0.1-0.7 [facility] Abs. Baso. 0.00 x10E3/uL 0.0-0.1 [facility] Abs. Imm. Gran. 0.05 x10E3/uL 0.0-0.1 [facility] ANRBC% 0 % 0 [facility] DIFFERENTIAL CONFIRMED BY SLIDE REVIEW. ID Date Data Source [id number] 06/09/2020 04:31:00 PM EDT [facility] Exam Number: [id number] Echocardiogr am ReportName: ELA PONCE BStudy Date: 06/08/20207991WEX13ODY: 1945 Gender: FemaleAge: 74 yrs Weight: 119 [...] with elevated RA pressure.Report electronically signed in ISC by: Fang Obrien MD, MPH,FACC on 06/08/2020 05:35 PM Reported By: - FANG OBRIEN MD Signed By: FANG OBRIEN MD Name Value Range Interpretation Code Description Data Rosa rce(s) Supporting Document(s) ID Date Data Source [id number] 06/09/2020 01:00:00 PM EDT [address] [id number] NOTEPATIENT NAME: ELA PONCE BATTENKEIKO PHYSICIAN: MICHAEL WANG MDAUTHOR: Shankar Denis DO. DATE: 05/18/20 MR#: [id number] NOTE DATE: 06/09/20 RM#: [id number] TIME: 1359 : 45SubjectiveEvents Since Last EntryPatient seen and examined in room today. Patient denies acute complaint.Patient requires less oxygen support. Patient responds very well withdiuretic.ObjectiveVital SignsVital Signs-24 HRS06/08256985 2993 1800 1810 2000Temp 97.5 98.5Pulse 70 69 71 76Resp 16 14 14 14B/P 140/54 126/77 131/55 137/53B/P MeanPulse Ox 94 95 93 95O2 Delivery Nasal cannulaO2 Flow Rate 9RsU99206/08254694 7094 2119 2200 2200Temp 98.9Pulse 79 73 74Resp 30 13B/P 137/53 124/82 145/57B/P MeanPulse Ox 96 94O2 Delivery Nasal cannulaO2 Flow Rate 3HMiN857/06/09666932 8396 0200 0200 0400Temp 97.9 98.7Pulse 69 72 78Resp 14 13 11B/P 126/45 137/51 144/58B/P MeanPulse Ox 90 93 90O2 DeliveryO2 Flow KjcoOaT286/06/09253121 9791 0600 0800 0827Temp 97.8 97.3 99.1Pulse 80 88Resp 11 18B/P 157/63 156/56 142/52B/P MeanPulse Ox 92 93O2 DeliveryO2 Flow RjygJkQ22006/09344541 3704 0829TempPulse 82 82RespB/P 142/52 142/52 142/52B/P MeanPulse OxO2 DeliveryO2 Flow DkwkJgV2Syarrk/OutputIntake/Output Summary 24 hours06/08 1900 06/09 0700Intake Total [...] shortly after the event. Patient landed on herbuttock. Patient denied hitting her head.- CT head [...] codeProlong Service Time* 30 minutes of prolong urwx-ue-bmce time spent with Patient, patient's son andcase logistics operations manager.* Discussed: discharge planning.VTE Proph ylaxisVTE Prophylaxis: Continue heparin.DATE SIGNED: 06/11/20 Electronically SignedTIME SIGNED: 2126 GEORGIA DENIS DO Name Value Range Interpretation Code Description Data Rosa rce(s) Supporting Document(s) ID Date Data Source [id number] 06/09/2020 08:02:00 AM EDT [facility] Name Value Range Interpretation Code Description Data Rosa rce(s) Supporting Document(s) WBC 4.59 x10E3/uL 4.0-10.5 [facility] RBC 3.22 x10E6/uL 4.20-5.40 [facility] Hemoglobin 9.8 g/dL 12.0-16.0 [facility] Hematocrit 30.8 % 37.0-47.0 [facility] MCV 95.7 fL 81.0-99.0 [facility] MCH 30.4 pg 27.0-31.0 [facility] MCHC 31.8 g/dL 32.7-35.6 [facility] RDW 17.5 % 11.5-14.0 [facility] Platelet count 185 x10E3/uL 150-450 [facility] ital MPV 10.1 fl 6.9-9.5 [facility] SEG. NEUTROPHIL 93 % 34-64 H [facility] al BAND 0 % 5-11 [facility] LYMPHOCYTE 7 % 25-45 [facility] EOSINOPHILS 0 % 0-7 [facility] MONOCYTES 0 % 2-10 [facility] BASOPHILS 0 % 0-2 [facility] ATYPICAL LYMPHS 0 % 0-10 [facility] al METAMYELOCYTES 0 % 0-2 [facility] MYELOCYTES 0 % 0-2 [facility] PROMYELOCYTES 0 % 0-1 [facility] BLAST CELLS 0 % 0-1 [facility] NUCLEATED RBC'S 0 0 [facility] al PLATELET MORPH 1+ PLT SIZE VARIES [facility] PLATELET MORPHOLOGY EXPECTED RESULT:NORM AL = NO REMARKABLE MORPHOLOGYAny findings other than Normal will be reported and areconsidered Abnormal. The significance of Abnormal findingsare to be clinically correlated by the provider. ID Date Data Source [id number] 06/09/2020 07:55:00 AM EDT [facility] Name Value Range Interpretation Code Description Data Rosa rce(s) Supporting Document(s) GLU 305 mg/dL 70-110 [facility] Patients taking Sulfasalazine may have f alsely depressedGlucose levels. Patients taking Sulfapyridine may havefalsely elevated Glucose levels. Patients should be drawnfor Glucose before the initial administration of eitherdrug. BUN 34 mg/dL 7-23 [facility] CRE 1.220 mg/dL 0.500-1.300 [facility] GFR 46 mL/min [facility] CHLORIDE 105 mmol/L 99-110 [facility] Center NA 142 mmol/L 136-147 [facility] POTASSIUM 5.2 mmol/L 3.5-5.1 [facility] TCO2 28 mmol/L 20-33 [facility] ANION GAP 14.2 10.0-20.0 [facility] CA 8.0 mg/dL 8.3-10.7 [facility] ID Date Data Source [id number] 06/08/2020 10:58:00 AM EDT [address] [id number] NOTEPATIENT NAME: ELA PONCE BATTENKEIKO PHYSICIAN: MICHAEL WANG MDAUTHOR: Shankar Denis DO. DATE: 05/18/20 MR#: [id number] NOTE DATE: 06/08/20 RM#: [id number] TIME: 1340 : 45SubjectiveEvents Since Last EntryPatient seen and examined in the room today. Currently patient's oxygenation ismaintained with 6L NC. Patient's mentation is improving. Patient is complainingabout her chronic back pain. No recurrence of hypoglycemia. Patient stated shehad similar episode at home.ObjectiveVital SignsVital Signs-24 HRS06/07379507 7887 1800 1999 2000Temp 97.8 97.2 96.8 98.7Pulse 75 95 62 68Resp 20 24 13 16B/P 119/90 119/56 115/48 142/61B/P MeanPulse Ox 93 95 95 90 91O2 Delivery Nasal cannula BiPAPO2 Flow Rate 4L [id number]/[id number] 5198 0000 0200 02 Temp 98.4Pulse 66 67 74 68Resp 13 21 13B/P 138/52 118/45 145/61 148/54B/P MeanPulse Ox 92 87 88O2 DeliveryO2 Flow GdptUtI05306/[id number] 8485 0615 0800 0819Temp 98.4 98.2Pulse 80 79Resp 21 16B/P 154/60 127/90 136/64B/P MeanPulse Ox 85 94O2 DeliveryO2 Flow RsotDvF11806/08820 0820 0823 0919TempPulse 88 88RespB/P 136/64 136/64 136/64B/P MeanPulse OxO2 Delivery Nasal cannulaO2 Flow Rate 8JuR3Jqjurr/OutputIntake/Output Summary 24 hours06/07 1900 06/08 0700Intake Total [...] oriented x 3Psych/Mental Status anxiousResultsLaboratory DataRecent Labs-24 hours06/07081375 3054 1736Blood GasABG pH (7.360 - 7.440) 7.406ABG [...] 12.0C-Reactive Protein (0.00 - 0.49 mg/dL) 5.97 OLpm-S-Zbzbdybbdnb Pept (0 - 125 pg/mL) 5531 HTotal [...] % (auto) (0 %) 0RBC Morphology 1+ ORMLKNZMPQHM0806/076 1736 1758Blood GasABG pH CancelledABG pCO2 CancelledABG [...] ClearUrine pH (5.0 - 8.0) 5.5Ur Specific [place] (1.010 - 1.025) 1.012Urine Protein (Negative) 3+Urine Ketones (NEGATIVE) NegativeUrine Blood (NEGATIVE) NegativeUrine Nitrite (Negative) NegativeUr Bilirubin Confirm (NEGATIVE) NegativeUrine Urobilinogen (0.2 - 1.0 mg/dL) 0.2Urine Leukocytes (Negative) NegativeUrine RBC (NONE SEEN) 0-2 RBCs/HPFUrine WBC (NONE SEEN) 0-2 WBCs/HPFUrine Bacteria (NONE SEEN) FewUrine Casts (NONE SEEN) FEW GRANULAR/LPFFEW HYALINE/LPFUrine Mucus (NONE SEEN) FewUrine Glucose (NEGATIVE) Jeeapkmj66/289424WumjzemcrBaksat (136 - 147 mmol/L) 144Potassium (3.5 - [...] the patient.Advance Care Planning* 20 minutes of jenx-yd-fekb time spent for Advance Care Planning inexplanation/discussion of Advance Directives.* Following people are present during the meeting: Patient and her son in ICU.* Decisions reached: Full code.Prolong Service Time* 30 minutes of prolong oazo-sk-kpvq time spent with Patient, Patient's son,case management.* Discussed: Subacute rehab. Transition to [facility] if patient fails rehab.Consider rehab facility in [facility] and [facility].VTE ProphylaxisVTE Prophylaxis: Continue heparin.DATE SIGNED: 06/11/20 Electronically SignedTIME SIGNED: [id number] [place] DENIS DO Name Value Range Interpretation Code Description Data Rosa e(s) Supporting Document(s) ID Date Data Source [id number] 06/08/2020 06:05:00 AM [facility]T [facility] Name Value Range Interpretation Code Description Data Rosa rce(s) Supporting Document(s) WBC 6.77 x10E3/uL 4.0-10.5 [facility] RBC 3.38 x10E6/uL 4.20-5.40 [facility] Hemoglobin 10.2 g/dL 12.0-16.0 [facility] Hematocrit 32.0 % 37.0-47.0 [facility] MCV 94.7 fL 81.0-99.0 [facility] MCH 30.2 pg 27.0-31.0 [facility] MCHC 31.9 g/dL 32.7-35.6 [facility] RDW 17.5 % 11.5-14.0 [facility] Platelet count 170 x10E3/uL 150-450 [facility] MPV 9.7 fl 6.9-9.5 [facility] Neutrophils 82.7 % 34-64 [facility] Lymphocytes 6.4 % 25-45 [facility] Monocytes 9.2 % 1.7-10.6 [facility] Eosinophils 1.3 % 0.4-7.0 [facility] Basophils 0.1 % 0.1-2.0 [facility] Imm. Gran. 0.3 % 0.1-2.0 [facility] Abs. Neutro. 5.60 x10E3/uL 1.2-7.6 [facility]. Lymph. 0.43 x10E3/uL 1.0-3.5 [facility] Abs. [place]. 0.62 x10E3/uL 0.1-1.0 N [facility] Abs. Eosin. 0.09 x10E3/uL 0.1-0.7 [facility] Abs. Baso. 0.01 x10E3/uL 0.0-0.1 [facility] Abs. Imm. Gran. 0.02 x10E3/uL 0.0-0.1 N [facility] spital ANRBC% 0 % 0 [facility] DIFFERENTIAL CONFIRMED BY SLIDE REVIEW. ID Date Data Source [id number] 06/08/2020 06:03:00 AM EDT [facility] Name Value Range Interpretation Code Description Data Rosa rce(s) Supporting Document(s) MAGNESIUM 1.8 mg/dL 1.6-2.6 [facility] ID Date Data Source [id number] 06/08/2020 06:03:00 AM EDT [facility] Name Value Range Interpretation Code Description Data Rosa rce(s) Supporting Document(s) GLU 141 mg/dL 70-110 [facility] Patients taking Sulfasalazine may have f alsely depressedGlucose levels. Patients taking Sulfapyridine may havefalsely elevated Glucose levels. Patients should be drawnfor Glucose before the initial administration of eitherdrug. BUN 30 mg/dL 7-23 [facility] CRE 0.913 mg/dL 0.500-1.300 [facility] GFR > 60 mL/min [facility] CHLORIDE 108 mmol/L 99-110 [facility] NA 144 mmol/L 136-147 [facility] POTASSIUM 4.5 mmol/L 3.5-5.1 [facility] TCO2 30 mmol/L 20-33 [facility] ANION GAP 10.5 10.0-20.0 [facility] CA 8.1 mg/dL 8.3-10.7 [facility] ID Date Data Source [id number] 06/08/2020 12:43:00 AM EDT [place], [place] [address]CROSS COVERAGE PROGRESS NOTEPATIENT NAME: ELA PONCE PHYSICIAN: MICHAEL WANG MDAUTHOR: David GA,S. : 45ADM. DATE: 05/18/20 MR#: [id number] NOTE DATE: 06/08/20 RM#: [id number] TIME: 46 HistoryNOCTURNALIST CROSS COVERAGE NOTEThis is a 74-year-old female with a known past medical history ofCOPD, diabetes, hypertension, spinal stenosis initially transferred from [facility] to [facility] on May 18, 2020 for persistent back [...] for active diuresis.@ 8:36 pm-was notified by YARD ASSISTANT that patient capillary blood glucose was 77and [...] till morning when her son (Doni from [place], [place]) arrives to changeher CODE STATUS to [...] been conveyed to nursing staffObjectiveVital SignsVital Signs-24 HRS06/07600 0812 0812 0813 0813Temp 98.5Pulse 84 84 84Resp 16B/P 153/66 153/66 153/66 153/66 153/66B/P MeanPulse Ox 92O2 Delivery Nasal cannulaO2 Flow Rate 8WNqH04006/07015 1022 1424 1638 1800Temp 98.7 97.8 97.2 96.8Pulse 80 75 95 62Resp 22 20 24 13B/P 119/88 119/90 119/56 115/48B/P MeanPulse Ox 94 93 95 95O2 Delivery Nasal cannula Nasal cannula BiPAPO2 Flow Rate 3L 4L 3ZGdY53806/[id number] 5500 204 2201Temp 98.7Pulse 68 66 67Resp 16 13B/P 142/61 138/52 118/45B/P MeanPulse Ox 90 91 92O2 DeliveryO2 Flow HrvzBaC0Dltcru/OutputIntake/Output Summary 24 hours06/07 1900 06/08 0700Intake TotalOutput [...] toDNR/DNI. However will await for her son [place] to arrive in the morning tochange this [...] patient, son (Doni (via telephone))Case discussed with YARD ASSISTANT- KateCritical Care Time* Based on my evaluation, the patient has the above life-threateningconditions.* I have personally provided [35 ] minutes of critical care time exclusive ofbillable procedures caring for the patient.Advance Care Planning* [14 ] minutes of qpvb-dd-mkht time spent for Advance Care Planning inexplanation/discussion of Advance Directives.* Decisions reached: [ PATIENT WOULD LIKE TO RESCIND CURRENT MOLST FORM TO DNR/DNI- HOWEVER WILL WAIT FOR HER SON TO ARRIVE THIS MORNING].VTE ProphylaxisVTE Prophylaxis: [ heparin sq].DATE SIGNED: 06/08/20 Electronically SignedTIME SIGNED: 31 JAMIR ALLEN MD Name Value Range Interpretation Code Description Data Rosa rce(s) Supporting Document(s) ID Date Data Source [id number] 06/07/2020 09:13:00 PM EDT [facility] O2 % or Liter Flow: 4L Name Value Range Interpretation Code Description Data Rosa rce(s) Supporting Document(s) PO2 53.9 mmHg 80-100 [facility] PCO2 40.8 mmHg 35-50 [facility] PH 7.447 7.360-7.440 [facility] HCO3(ABG) 27.5 mmol/L 20-33 [facility] %SATO2 88.3 % 95-100 [facility] BASE EXCESS 3.2 mmol/L -3 TO +3 [facility] DEVICE/FIO2 4L [facility] tHb 10.8 g/dL 12-18 [facility] FO2Hb 87.6 % 94.0-97.0 [facility] FMETHb 0.5 % 0.0-1.5 [facility] CO 0.3 % [facility] CARBOXYHEMOGLOBIN INTERPRET ATION % TOTAL HEMOGLOBIN NONSMOKER: <2% AVERAGE SMOKER: 4-5% 1-2 PACKS/DAY HEAVY SMOKER 8-12% >2 PACKS/DAY POTENTIALLY TOXIC: >15% ID Date Data Source [id number] 06/08/2020 01:48:00 PM EDT [address] [id number] NOTEPATIENT NAME: ELA PONCE BATTENKEIKO PHYSICIAN: MICHAEL WANG MDAUTHOR: Shankar Denis DO. DATE: 05/18/20 MR#: [id number] NOTE DATE: 06/07/20 RM#: [id number] TIME: 1415 : 45SubjectiveEvents Since Last EntryThis progress note is for encounters on 06/07/2020. Initial progress note for 06/07/2020 was placed in the wrong section and it was corrected.Patient seen and examined in the room multiple time. Patien t had fall in themorning. Patient was seen [...] given. Repeatglucose measurement demonstrated improvement.ObjectiveVital SignsVital Signs-24 HRS06/07424 1638 1800 1999 2001Temp 97.8 97.2 96.8 98.7Pulse 75 95 62 68Resp 20 24 13 16B/P 119/90 119/56 115/48 142/61B/P MeanPulse Ox 93 95 95 90 91O2 Delivery Nasal cannula BiPAPO2 Flow Rate 4L 1QZkD59306/07040 2201 0000 0200 0200Temp 98.4Pulse 66 67 74 68Resp 13 21 13B/P 138/52 118/45 145/61 148/54B/P MeanPulse Ox 92 87 88O2 DeliveryO2 Flow AqjaWiQ14406/08400 0400 0615 0630 0645Temp 98.4Pulse 80 79 83 81Resp 21 16 18 15B/P 154/60 127/90 162/61 146/56B/P MeanPulse Ox 85 94 91 94O2 DeliveryO2 Flow ZrweElA71606/08700 0700 0715 0730 0745TempPulse 87 79 78 86Resp 16 16 15 17B/P 174/60 139/51 135/54 161/64B/P MeanPulse Ox 89 94 94 92O2 DeliveryO2 Flow LquiSuC03506/08800 0815 0815 0819 0820Temp 98.2Pulse 87Resp 23B/P 136/64 136/64 136/64B/P MeanPulse Ox 93O2 DeliveryO2 Flow UzlrTvQ72306/08820 0823 0845 0900 0915TempPulse 88 88 86 85 77Resp 19 17 17B/P 136/64 136/64 172/65 166/63 151/59B/P MeanPulse Ox 96 94 95O2 DeliveryO2 Flow JoteYwU05906/08919 0930 0930 0945 1000TempPulse 76 73 73Resp 17 16 12B/P 148/56 131/52 141/50B/P MeanPulse Ox 92 95 96O2 Delivery Nasal cannulaO2 Flow Rate 0KsX73406/08015 1030 1045 1045 1100TempPulse 75 75 72 70Resp 15 23 15 17B/P 140/118 142/58 144/53 142/55B/P MeanPulse Ox 93 93 95 95O2 DeliveryO2 Flow SrtyJuG95406/08115 1130 1145 1200 1200TempPulse 72 70 71 72Resp 15 16 15 18B/P 125/42 121/52 119/52 130/48B/P MeanPulse Ox 94 94 91 93O2 DeliveryO2 Flow EwwgEzB66106/08215 1230 1245TempPulse 73 71 72Resp 13 21 16B/P 100/79 140/51 125/47B/P MeanPulse Ox 93 93 90O2 DeliveryO2 Flow MgstQcY1Nsiwpo/OutputIntake/Output Summary 24 1900 06/08 0700Intake Total 100Output Total 500 [...] Status unable to evaluateResultsLaboratory DataRecent Labs- 24 hours06/07980574 7847 1736Blood GasABG pH (7.360 - 7.440) 7.406ABG [...] 12.0C-Reactive Protein (0.00 - 0.49 mg/dL) 5.97 JUit-L-Vhnkzmukvut Pept (0 - 125 pg/mL) 5531 HTotal [...] % (auto) (0 %) 0RBC Morphology 1+ BRVRWSEEQYBR4006/07 1736 1758Blood GasABG pH CancelledABG pCO2 CancelledABG pO2 CancelledABG O2 Saturation CancelledABG Base Excess CancelledOxyhemoglobin CancelledCarbo xyhemoglobin CancelledMethemoglobin CancelledTotal Hemoglobin CancelledFiO2 CancelledChemistrySerum Bicarbonate CancelledPlasma Lactic Acid [place] (0.4 - 2.0 mmol/L) 0.4Troponin I High Sens ( 3.0 - 82.3 ng/L) 33.304/ 2100Blood GasABG pH [...] ClearUrine pH (5.0 - 8.0) 5.5Ur Specific [place] (1.010 - 1.025) 1.012Urine Protein (Negative) 3+Urine Ketones (NEGATIVE) NegativeUrine Blood (NEGATIVE) NegativeUrine Nitrite (Negative) NegativeUr Bilirubin Confirm (NEGATIVE) NegativeUrine Urobilinogen (0.2 - 1.0 mg/dL) 0.2Urine Leukocytes (Negative) NegativeUrine RBC (NONE SEEN) 0-2 RBCs/HPFUrine WBC (NONE SEEN) 0-2 WBCs/HPFUrine Bacteria (NONE SEEN) FewUrine Casts (NONE SEEN) FEW GRANULAR/LPFFEW HYALINE/LPFUrine Mucus (NONE SEEN) FewUrine Glucose (NEGATIVE) Bmvgdrsz43/165757SwcelostnNrfvgw (136 - 147 mmol/L) 144Potassium (3.5 - [...] rce(s) Supporting Document(s) ID Date Data Source [id number] 06/07/2020 06:27:00 PM EDT [facility] Name Value Range Interpretation Code Description Data Rosa rce(s) Supporting Document(s) URINE COLOR Yellow [facility] UAPR Clear [facility] UGLU Negative NEGATIVE [facility] URINE BILIRUBIN [facility] NE[facility]IVE [facility] Negative NEGATIVE [facility] USG 1.012 1.010-1.025 [facility] UBLO Negative NEGATIVE [facility] UpH 5.5 5.0-8.0 [facility] UPRO 3+ Negative [facility] UUB 0.2 mg/dL 0.2-1.0 [facility] UNIT Negative Negative [facility] ULEU Negative Negative [facility] ID Date Data Source [id number] 06/07/2020 06:27:00 PM EDT [facility] jer Name Value Range Interpretation Code Description Data Rosa rce(s) Supporting Document(s) URINE RBC 0-2 RBCs/HPF NONE SEEN [facility] URINE WBC 0-2 WBCs/HPF NONE SEEN [facility] URINE BACTERIA Few NONE SEEN [facility] l URINE EPI. Rare NONE SEEN [facility] FEW GRANULAR/LPFFEW HYALINE/LPF UMUCUS Few NONE SEEN [facility] ID Date Data Source [id number] 06/07/2020 05:46:00 PM EDT [facility] Exam Number: [id number] OF EXAMINATIO N: 06/07/2020 16:29 EDTCT ANGIO [...] Darcy Collazo M.D. 06/07/2020 17:34EDT Reported By: Kmeal COLLAZO M.D. Signed By: DARCY COLLAZO M.D. Name Value Range Interpretation Code Description Data Rosa rce(s) Supporting Document(s) ID Date Data Source [id number] 06/07/2020 05:39:00 PM EDT [place] [facility] Exam Number: [id number] OF EXAMINATIO N: 06/07/2020 16:29 EDTCT BRAIN [...] Darcy Collazo M.D. 06/07/2020 17:27EDT Reported By: Kemal COLLAZO M.D. Signed By: DARCY COLLAZO M.D. Name Value Range Interpretation Code Description Data Rosa rce(s) Supporting Document(s) ID Date Data Source [id number] 06/07/2020 06:19:00 PM EDT [facility] Name Value Range Interpretation Code Description Data Rosa rce(s) Supporting Document(s) C-REACTIVE PROT 5.97 mg/dL 0.00-0.49 H [facility] ID Date Data Source [id number] 06/07/2020 06:19:00 PM EDT [facility] Name Value Range Interpretation Code Description Data Rosa rce(s) Supporting Document(s) NT-PROBNP 5531 pg/mL 0-125 [facility] ID Date Data Source [id number] 06/07/2020 06:19:00 PM EDT [facility] Name Value Range Interpretation Code Description Data [facility] rce(s) Supporting Document(s) GLU 36 mg/dL 70-110 [facility] Patients taking Sulfasalazine may have f alsely depressedGlucose levels. Patients taking Sulfapyridine may havefalsely elevated Glucose levels. Patients should be drawnfor Glucose before the initial administration of eitherdrug. BUN 34 mg/dL 7-23 [facility] CRE 0.932 mg/dL 0.500-1.300 [facility] GFR > 60 mL/min [facility] CHLORIDE 109 mmol/L 99-110 [facility] NA 144 mmol/L 136-147 [facility] POTASSIUM 4.1 mmol/L 3.5-5.1 [facility] TCO2 28 mmol/L 20-33 [facility] ANION GAP 11.1 10.0-20.0 [facility] CA 8.3 mg/dL 8.3-10.7 [facility] ALKALINE PHOS 205 U/L 45-117 [facility] TP 5.4 g/dL 6.0-7.8 [facility] ALB 2.4 g/dL 3.5-5.0 [facility] ESRD Dialysis patient Albumin reference range: 2.9-4.4 g/dL GL 3.0 g/dL 2.3-3.5 [facility] A/G 0.8 1.0-2.5 [facility] T. BILIRUBIN 0.4 mg/dL 0.1-1.1 [facility] [place] Total Bilirubin is n ot recommended forpatients undergoing treatment with eltrombopag (Promacta)due to the potential for falsely elevated results. ALTI 19 U/L 6-54 [facility] Patients taking Sulfasalazine and/or Sul fapyridine may havefalsely depressed ALT levels. Patients should be drawn forALT before the initial administration of either drug. AST 20 U/L 6-38 [facility] Patients taking Sulfasalazine and/or Sul fapyridine may havefalsely depressed AST levels. Patients should be drawn forAST before the initial administration of either drug. ID Date Data Source [id number] 06/07/2020 06:15:00 PM EDT [facility] Name Value Range Interpretation Code Description Data Rosa rce(s) Supporting Document(s) TROPONIN HS 33.3 ng/L 3.0-82.3 [facility] ID Date Data Source [id number] 06/07/2020 06:15:00 PM EDT [facility] Name Value Range Interpretation Code Description Data Rosa rce(s) Supporting Document(s) LACTIC ACID COMFORT 0.4 mmol/L 0.4-2.0 [facility] ID Date Data Source [id number] 06/07/2020 06:14:00 PM EDT [facility] Name Value Range Interpretation Code Description Data Rosa rce(s) Supporting Document(s) AMMONIA 12.0 umol/L 11-32 [facility] Patients taking Sulfasalazine may have f alselyelevated Ammonia results. Patients taking Sulfapyridine mayhave falsely depressed Ammonia levels. Patients should bedrawn for Ammonia before the initial administration ofeither drug. ID Date Data Source [id number] 06/07/2020 06:04:00 PM EDT [facility] jer Name Value Range Interpretation Code Description Data Rosa rce(s) Supporting Document(s) WBC 9.98 x10E3/uL 4.0-10.5 [facility] RBC 3.08 x10E6/uL 4.20-5.40 [facility] Hemoglobin 9.3 g/dL 12.0-16.0 [facility] Hematocrit 29.2 % 37.0-47.0 [facility] MCV 94.8 fL 81.0-99.0 [facility] MCH 30.2 pg 27.0-31.0 [facility] MCHC 31.8 g/dL 32.7-35.6 [facility] RDW 17.5 % 11.5-14.0 [facility] Platelet count 177 x10E3/uL 150-450 N [facility] ital MPV 9.8 fl 6.9-9.5 [facility] Neutrophils 86.7 % 34-64 [facility] Lymphocytes 3.9 % 25-45 [facility] Monocytes 8.3 % 1.7-10.6 [facility] Eosinophils 0.4 % 0.4-7.0 [facility] Basophils 0.3 % 0.1-2.0 [facility] Imm. Gran. 0.4 % 0.1-2.0 [facility] Abs. Neutro. 8.65 x10E3/uL 1.2-7.6 H [facility] jer Abs. Lymph. 0.39 x10E3/uL 1.0-3.5 [facility] Abs. [place]. 0.83 x10E3/uL 0.1-1.0 N [facility] l Abs. Eosin. 0.04 x10E3/uL 0.1-0.7 [facility] Abs. Baso. 0.03 x10E3/uL 0.0-0.1 N [facility] l Abs. Imm. Gran. 0.04 x10E3/uL 0.0-0.1 N [facility] spital ANRBC% 0 % 0 [facility] DIFFERENTIAL CONFIRMED BY SLIDE REVIEW. RBC MORPHOLOGY 1+ ANISOCYTOSIS N [facility] ospital RBC MORPHOLOGY EXPECTED RESULTS: NORMAL = NORMOCHROMIC, NORMOCYTIC CELLSAny findings other than Normal will be reported and areconsidered Abnormal. The significance of Abnormalfindings are to be clinically correlated by the provider. ID Date Data Source [id number] 06/07/2020 04:04:00 PM EDT [facility] Exam Number: [id number] OF EXAMINATIO N: 06/07/2020 15:20 EDTCHEST SINGLE [...] rce(s) Supporting Document(s) ID Date Data Source [id number] 06/07/2020 03:46:00 PM EDT [facility] O2 % or Liter Flow: 6L Name Value Range Interpretation Code Description Data Rosa rce(s) Supporting Document(s) PO2 69.0 mmHg 80-100 [facility] PCO2 45.3 mmHg 35-50 [facility] PH 7.406 7.360-7.440 [facility] HCO3(ABG) 27.8 mmol/L 20-33 [facility] %SATO2 92.9 % 95-100 [facility] BASE EXCESS 2.6 mmol/L -3 TO +3 [facility] DEVICE/FIO2 100% [facility] tHb 11.6 g/dL 12-18 [facility] FO2Hb 91.9 % 94.0-97.0 [facility] FMETHb 0.6 % 0.0-1.5 [facility] CO 0.5 % [facility] CARBOXYHEMOGLOBIN INTERPRET ATION % TOTAL HEMOGLOBIN NONSMOKER: <2% AVERAGE SMOKER: 4-5% 1-2 PACKS/DAY HEAVY SMOKER 8-12% >2 PACKS/DAY POTENTIALLY TOXIC: >15% ID Date Data Source [id number] 06/07/2020 12:50:00 PM EDT [facility] Name Value Range Interpretation Code Description Data Rosa rce(s) Supporting Document(s) FGLU 110 mg/dL 70-110 [facility] ID Date Data Source [id number] 06/07/2020 03:52:00 PM EDT [facility] Name Value Range Interpretation Code Description Data Rosa rce(s) Supporting Document(s) FGLU 143 mg/dL 70-110 [facility] ID Date Data Source [id number] 06/07/2020 05:23:00 PM EDT [facility] Name Value Range Interpretation Code Description Data Rosa rce(s) Supporting Document(s) FGLU 228 mg/dL 70-110 [facility] ID Date Data Source [id number] 06/07/2020 06:08:00 AM EDT [facility] Name Value Range Interpretation Code Description Data Rosa rce(s) Supporting Document(s) FGLU 210 mg/dL 70-110 [facility] ID Date Data Source [id number] 06/06/2020 08:18:00 PM EDT [facility] Name Value Range Interpretation Code Description Data Rosa rce(s) Supporting Document(s) FGLU 69 mg/dL 70-110 L [facility] ID Date Data Source [id number] 06/06/2020 08:04:00 PM EDT [facility] Name Value Range Interpretation Code Description Data Rosa rce(s) Supporting Document(s) FGLU 69 mg/dL 70-110 [facility] ID Date Data Source [id number] 06/06/2020 09:36:00 PM EDT [facility] Name Value Range Interpretation Code Description Data Rosa rce(s) Supporting Document(s) FGLU 150 mg/dL 70-110 [facility] ID Date Data Source [id number] 06/06/2020 10:41:00 AM EDT [facility] [address] [id number] NOTEPATIENT NAME: ELA PONCE PHYSICIAN: MICHAEL WANG MDAUTHOR: Shankar Denis DO. DATE: 05/18/20 MR#: [id number] NOTE DATE: 06/06/20 RM#: [id number] TIME: 1050 : 45SubjectiveEvents Since Last EntryPatient seen and examined in the room today. No fever or chill. Denies anyworsening of the breathing.ObjectiveVital SignsVital Signs-24 HRS06/05422012 0652Temp 98.2 98.9 98.0Pulse 67 81 85 79Resp 17 17 17B/P 111/54 120/68 138/57 120/57B/P MeanPulse Ox 93 92 91O2 Delivery Nasal cannula Nasal cannulaO2 Flow Rate 3L 6BOnL17206/06823 0825 0826 0826TempPulse 91 91RespB/P 121/66 121/66 121/66 121/66B/P MeanPulse OxO2 DeliveryO2 Flow TxoqErA8Yeniid/OutputIntake/Output Summary 24 hours06/05 1900 06/06 0700Intake Total [...] no lymphadenopathyPsych/Mental Status mood neutralResultsLaboratory DataRecent Labs-24 hours06/05187074 0003 1318 1708 2019ChemistryPOC Glucose (70 - 110 mg/dL) 62 L 61 L 151 H 127 H 208 H006/[id number] 0631ChemistrySodium (136 - 147 mmol/L) 143Potassium (3.5 [...] for discharge: [facility]. [facility]. PneumoniaStatus AcuteA&P- S/P course of [...] duloxetine. Continue Buspar.12. AnxietyStatus AcuteA&P- Continue BuSpar, rwxandmzew77. PVD (peripheral vascular disease)Status ChronicA&P-History of stent placement.-Continue Plavix, lkfjea10. DebilityStatus ChronicA&P-Patient needs subacute rehab.15. HypoalbuminemiaStatus ChronicA&P- Continue Ensure supplement.-Encourage oral intake as tolerated.16. Polysubstance abuseStatus ChronicA&P-Continue thiamine, folic acid and iccavhtxtstv72. HypernatremiaStatus Nyitmhdy50. Anemia of chronic diseaseStatus AcuteA&P-Status post 3 PRBC transfusions.- HH is maintaining.19. CandidiasisStatus AcuteA&P- Continue nystatin powder. Continue MIconazole cream.Resuscitation status Full codeDATE SIGNED: 06/11/20 Electronically SignedTIME SIGNED: 2126 [place] DENIS DO Name Value Range Interpretation Code Description Data Rosa rce(s) Supporting Document(s) ID Date Data Source [id number] 06/06/2020 06:37:00 AM EDT [facility] Name Value Range Interpretation Code Description Data Rosa rce(s) Supporting Document(s) FGLU 236 mg/dL 70-110 [facility] ID Date Data Source [id number] 06/06/2020 06:41:00 AM EDT [facility] jer Name Value Range Interpretation Code Description Data Rosa rce(s) Supporting Document(s) MAGNESIUM 2.0 mg/dL 1.6-2.6 [facility] ID Date Data Source [id number] 06/06/2020 06:41:00 AM EDT [facility] jer Name Value Range Interpretation Code Description Data Rosa rce(s) Supporting Document(s) GLU 188 mg/dL 70-110 [facility] Patients taking Sulfasalazine may have f alsely depressedGlucose levels. Patients taking Sulfapyridine may havefalsely elevated Glucose levels. Patients should be drawnfor Glucose before the initial administration of eitherdrug. BUN 35 mg/dL 7-23 [facility] CRE 0.931 mg/dL 0.500-1.300 [facility] GFR > 60 mL/min [facility] CHLORIDE 108 mmol/L 99-110 [facility] NA 143 mmol/L 136-147 [facility] POTASSIUM 4.8 mmol/L 3.5-5.1 [facility] TCO2 27 mmol/L 20-33 [facility] ANION GAP 12.8 10.0-20.0 [facility] CA 8.5 mg/dL 8.3-10.7 [facility] ID Date Data Source [id number] 06/06/2020 05:47:00 AM EDT [facility] jer Name Value Range Interpretation Code Description Data Rosa rce(s) Supporting Document(s) WBC 8.26 x10E3/uL 4.0-10.5 [facility] RBC 3.32 x10E6/uL 4.20-5.40 [facility] Hemoglobin 10.0 g/dL 12.0-16.0 [facility] Hematocrit 31.6 % 37.0-47.0 [facility] MCV 95.2 fL 81.0-99.0 [facility] MCH 30.1 pg 27.0-31.0 [facility] MCHC 31.6 g/dL 32.7-35.6 [facility] RDW 17.4 % 11.5-14.0 [facility] Platelet count 170 x10E3/uL 150-450 [facility] ital MPV 10.3 fl 6.9-9.5 [facility] Neutrophils 78.0 % 34-64 [facility] Lymphocytes 8.8 % 25-45 L [facility] Monocytes 10.2 % 1.7-10.6 [facility] Eosinophils 2.2 % 0.4-7.0 [facility] Basophils 0.4 % 0.1-2.0 [facility] Imm. Gran. 0.4 % 0.1-2.0 [facility] Abs. Neutro. 6.45 x10E3/uL 1.2-7.6 [facility] Abs. Lymph. 0.73 x10E3/uL 1.0-3.5 [facility] Abs. [place]. 0.84 x10E3/uL 0.1-1.0 [facility] Abs. Eosin. 0.18 x10E3/uL 0.1-0.7 [facility] Abs. Baso. 0.03 x10E3/uL 0.0-0.1 [facility] Abs. Imm. Gran. 0.03 x10E3/uL 0.0-0.1 N [facility] spital ANRBC% 0 % 0 [facility] ID Date Data Source [id number] 06/06/2020 12:17:00 AM EDT [facility] Name Value Range Interpretation Code Description Data Rosa rce(s) Supporting Document(s) FGLU 208 mg/dL 70-110 [facility] ID Date Data Source [id number] 06/05/2020 09:16:00 PM EDT [facility] Name Value Range Interpretation Code Description Data Rosa rce(s) Supporting Document(s) FGLU 127 mg/dL 70-110 [facility] ID Date Data Source [id number] 06/05/2020 01:27:00 PM EDT [facility] Name Value Range Interpretation Code Description Data Rosa rce(s) Supporting Document(s) FGLU 151 mg/dL 70-110 [facility] ID Date Data Source [id number] 06/05/2020 02:57:00 PM EDT [facility] Name Value Range Interpretation Code Description Data Rosa rce(s) Supporting Document(s) FGLU 61 mg/dL 70-110 [facility] ID Date Data Source [id number] 06/05/2020 04:28:00 PM EDT [facility] Name Value Range Interpretation Code Description Data Rosa rce(s) Supporting Document(s) FGLU 62 mg/dL 70-110 [facility] ID Date Data Source [id number] 06/05/2020 10:50:00 AM EDT [facility] [address] [id number] NOTEPATIENT NAME: KRIS,ELA BATTENDING PHYSICIAN: MICHAEL WANG MDAUTHOR: Shankar Denis DO. DATE: 05/18/20 MR#: [id number] NOTE DATE: 06/05/20 RM#: [id number] TIME: 1122 : 45SubjectiveEvents Since Last EntryPatient seen and examined in the room today. Patient still complains of herchronic back pain. No fever or chill. Denies any worsening of the breathing.ObjectiveVital SignsVital Signs-24 HRS06/04213879 1049 2140 2200 0541Temp 98.2 97.7 97.5Pulse 70 76 75 82Resp 17 18 16B/P 127/64 128/72 134/65 164/63B/P MeanPulse Ox 81 92 92O2 Delivery Nasal cannula Nasal cannula Nasal cannulaO2 Flow Rate 3L 3L [id number]/[id number] 9581 0728 0732TempPulse 81 81RespB/P 161/64 161/64 161/64 161/64B/P MeanPulse OxO2 DeliveryO2 Flow TfnpPdI4Rgiwtq/OutputIntake/Output Summary 24 hours06/04 1900 06/05 0700Intake Total [...] no lymphadenopathyPsych/Mental Status mood neutralResultsLaboratory DataRecent Labs-24 hours06/04309143 7520 1658 0654ChemistryPOC Glucose (70 - 110 mg/dL) [...] duloxetine. Continue Buspar.12. AnxietyStatus AcuteA&P- Continue BuSpar, ahxmwvauna36. PVD (peripheral vascular disease)Status ChronicA&P-History of stent placement.-Continue Plavix, clwnag54. DebilityStatus ChronicA&P-Patient needs subacute rehab.15. HypoalbuminemiaStatus ChronicA&P- Continue Ensure supplement.-Encourage oral intake as tolerated.16. Polysubstance abuseStatus ChronicA&P-Continue thiamine, folic acid and gijqmoljncen54. HypernatremiaStatus Sacbpnrh45. HyperglycemiaStatus Acute19. Anemia of chronic diseaseStatus AcuteA&P-Status post 3 PRBC transfusions.- HH is maintaining.20. CandidiasisStatus AcuteA&P-Continue nystatin powder.- MIconazole added.Additional NotesBarrier for discharge: Patient requires subacute rehab arrangement.Resuscitation status Full codeVTE ProphylaxisVTE Prophylaxis: Continue heparin.DATE SIGNED: 06/11/20 Electronically SignedTIME SIGNED: 2126 [place] DENIS DO Name Value Range Interpretation Code Description Data Rosa rce(s) Supporting Document(s) ID Date Data Source [id number] 06/05/2020 06:57:00 AM EDT [facility] Name Value Range Interpretation Code Description Data Rosa rce(s) Supporting Document(s) FGLU 261 mg/dL 70-110 [facility] ID Date Data Source [id number] 06/04/2020 07:07:00 PM EDT [facility] Name Value Range Interpretation Code Description Data Rosa rce(s) Supporting Document(s) FGLU 79 mg/dL 70-110 [facility] ID Date Data Source [id number] 06/04/2020 08:39:00 PM EDT [facility] Name Value Range Interpretation Code Description Data Rosa rce(s) Supporting Document(s) FGLU 54 mg/dL 70-110 [facility] ID Date Data Source [id number] 06/04/2020 12:11:00 PM EDT [facility] [place] [id number] NOTEPATIENT NAME: ELA PONCE BATTENKEIKO PHYSICIAN: MICHAEL WANG, MDAUTHOR: Breezy GA, Zhang. DATE: 05/18/20 MR#: [id number] NOTE DATE: 06/04/20 RM#: [id number] TIME: 1220 : 45SubjectiveCC/Hx Present IllnessBack painEvents Since Last EntryCurrently alert oriented x3. Very poor historian, Patient comfortable,reported chronic back pain. Tolerating p.o, Denies chest pain. Afebrile. Allother review of s ystem negativeObjectiveVital SignsVital Signs-24 HRS06/03350384 0654 2104 2155 0619Temp 98.2 98.5 97.5Pulse 71 76 76 74Resp 16 16 16B/P 108/52 140/64 140/64 145/65B /P MeanPulse Ox 98O2 Delivery Nasal cannula Nasal cannulaO2 Flow Rate 3L 6ZNgX93606/[id number] 8621 0749 0753TempPulse 68 68RespB/P 148/68 148/68 148/68 148/68B/P MeanPulse OxO2 DeliveryO2 Flow XigqEpC3Jnxttl/OutputIntake/Output Summary 24 hours06/030 06/04 0700Intake Total 840 420Output Total 500Balance [...] Status mood neutral, no hallucinationsResultsLaboratory DataRecent Labs-24 hours06/03691919 2083 0338 0532ChemistrySodium (136 - 147 mmol/L) 144Potassium (3.5 [...] UTI (urinary tract infection)Status ResolvedA&PTreated with Zosyn vb-Yxefeg-np urine culture.5. HLD (hyperlipidemia)Status ChronicA&PContinue statin6. Spinal [...] essential hypertension Qualified Code: I10 - Essential(primary) xdrckephuydp29. CKD (chronic kidney disease)Status ChronicA&P-Monitor renal function.11. DiabetesStatus ChronicA&PComplicated with hypoglycemia and hyperglycemiaIncreased Levemir 14 units daily, continue NovoLog via protocol, closemonitoring, taper off bjqoatrw01. AnxietyStatus AcuteA&PContinue current gnwueqckjj59. PVD (peripheral vascular disease)Status ChronicA&PHistory of stent placement.Continue with Plavix, statin-Continue to monitor.14. DebilityStatus ChronicA&P-Supportive care-Consider PT/OT when patient is more alert.15. HypoalbuminemiaStatus ChronicA&PEncourage p.o. intake. Nutrition supplementation.Ensure p.o. 3 times daily.16. Polysubstance abuseStatus ChronicA&PThiamine, folic acid, multivitamin, no signs of afebbeoytp70. HypernatremiaStatus ResolvedA&ZVnyqjecfo98. HyperglycemiaStatus AcuteA&a mp;PMonitor, off cizrjvs74. T1-T2 SUBACUTE FRACTUREStatus AcuteA&PPT, OT, fall precaution, pain medication as . Anemia of chronic diseaseStatus AcuteA&PWorsening anemia, no signs of bleeding, transfuse 3unit PRBC with appropriateresponse. Will monitor, further work-up as zklfsuyvlj92. CandidiasisStatus AcuteA&PTreatment as above ordered, wound careAdditional Rrjvb24-cfei-nge female patient underlying medical history of COPD O2 dependent,spinal stenosis, depression, dyslipidemia, type 2 diabetes, nicotine addiction,anxiety, hypothyroidism, debility, CKD, peripheral vascular dise ase,hypoalbuminemia, polysubstance abuse, initially admitted to [facility] for right upper lobe pneumonia, sepsis, deconditioning with frequentfall, transferred given complains of back pain and worsening leukocytosis.DVT prophylaxis Heparin subcuDisposition short-term rehabResuscitation status Full codePlan discussed with patientCase discussed with catalytic case operator, nursing staffVTE ProphylaxisVTE Prophylaxis: Heparin subcu.DATE SIGNED: 06/04/20 Electronically SignedTIME SIGNED: 1220 SAAD FRIED MD Name Value Range Interpretation Code Description Data Rosa rce(s) Supporting Document(s) ID Date Data Source [id number] 06/04/2020 12:48:00 PM EDT [facility] Name Value Range Interpretation Code Description Data Rosa rce(s) Supporting Document(s) FGLU 183 mg/dL 70-110 [facility] ID Date Data Source [id number] 06/04/2020 09:13:00 AM EDT [facility] Name Value Range Interpretation Code Description Data Rosa rce(s) Supporting Document(s) FGLU 169 mg/dL 70-110 [facility] ID Date Data Source [id number] 06/04/2020 06:16:00 AM EDT [facility] Name Value Range Interpretation Code Description Data Rosa rce(s) Supporting Document(s) WBC 8.08 x10E3/uL 4.0-10.5 [facility] RBC 3.67 x10E6/uL 4.20-5.40 [facility] Hemoglobin 11.0 g/dL 12.0-16.0 [facility] Hematocrit 34.5 % 37.0-47.0 [facility] MCV 94.0 fL 81.0-99.0 [facility] MCH 30.0 pg 27.0-31.0 [facility] MCHC 31.9 g/dL 32.7-35.6 [facility] RDW 17.6 % 11.5-14.0 [facility] Platelet count 174 x10E3/uL 150-450 N [facility] ital MPV 10.0 fl 6.9-9.5 [facility] Neutrophils 81.2 % 34-64 [facility] Lymphocytes 7.8 % 25-45 [facility] Monocytes 8.0 % 1.7-10.6 [facility] Eosinophils 2.2 % 0.4-7.0 [facility] Basophils 0.2 % 0.1-2.0 [facility] Imm. Gran. 0.6 % 0.1-2.0 [facility] Abs. Neutro. 6.55 x10E3/uL 1.2-7.6 [facility] Lymph. 0.63 x10E3/uL 1.0-3.5 [facility] [place]. 0.65 x10E3/uL 0.1-1.0 N [facility] l Abs. Eosin. 0.18 x10E3/uL 0.1-0.7 [facility] al Abs. Baso. 0.02 x10E3/uL 0.0-0.1 N [facility] l Abs. Imm. Gran. 0.05 x10E3/uL 0.0-0.1 [facility] spital ANRBC% 0 % 0 [facility] ID Date Data Source [id number] 06/04/2020 05:26:00 AM EDT [facility] Name Value Range Interpretation Code Description Data Rosa rce(s) Supporting Document(s) MAGNESIUM 1.8 mg/dL 1.6-2.6 [facility] ID Date Data Source [id number] 06/04/2020 05:26:00 AM EDT [facility] Name Value Range Interpretation Code Description Data Rosa rce(s) Supporting Document(s) GLU 132 mg/dL 70-110 [facility] Patients taking Sulfasalazine may have f alsely depressedGlucose levels. Patients taking Sulfapyridine may havefalsely elevated Glucose levels. Patients should be drawnfor Glucose before the initial administration of eitherdrug. BUN 38 mg/dL 7-23 [facility] CRE 1.100 mg/dL 0.500-1.300 [facility] GFR 52 mL/min [facility] CHLORIDE 111 mmol/L 99-110 [facility] NA 144 mmol/L 136-147 [facility] POTASSIUM 4.7 mmol/L 3.5-5.1 [facility] TCO2 30 mmol/L 20-33 [facility] ANION GAP 7.7 10.0-20.0 [facility] CA 8.2 mg/dL 8.3-10.7 [facility] ID Date Data Source [id number] 06/04/2020 04:52:00 AM EDT [facility] Name Value Range Interpretation Code Description Data Rosa rce(s) Supporting Document(s) FGLU 125 mg/dL 70-110 [facility] ID Date Data Source [id number] 06/03/2020 07:50:00 PM EDT [facility] Name Value Range Interpretation Code Description Data Rosa rce(s) Supporting Document(s) FGLU 135 mg/dL 70-110 [facility] ID Date Data Source [id number] 06/03/2020 01:02:00 PM EDT [facility] Name Value Range Interpretation Code Description Data Rosa rce(s) Supporting Document(s) FGLU 223 mg/dL 70-110 [facility] ID Date Data Source [id number] 06/03/2020 08:10:00 AM EDT [address] [id number] NOTEPATIENT NAME: KRISELA BATTENKEIKO PHYSICIAN: MICHAEL WANG MDAUTHOR: Breezy [place], Zhang. DATE: 05/18/20 MR#: [id number] NOTE DATE: 06/03/20 RM#: [id number] TIME: 818 [...] cannula Nasal cannulaO2 Flow Rate 3L 3L 3NZxS467/213217Qmcr 97.9Pulse 77Resp 18B/P 166/74B/P MeanPulse Ox 94O2 Delivery Nasal cannulaO2 Flow Rate 7RWtM7Pfhzko/OutputIntake/Output Summary 24 hours06/02 1900 06/03 0700Intake Total [...] UTI (urinary tract infection)Status ResolvedA&PTreated with Zosyn gp-Zetfrr-ee urine culture.5. HLD (hyperlipidemia)Status ChronicA&PContinue statin6. Spinal [...] - Essential(primary) . CKD (chronic kidney disease)Status ChronicA&P-Monitor renal function.11. DiabetesStatus ChronicA&PComplicated with hypoglycemia and hyperglycemiaIncreased Levemir 14 units daily, continue NovoLog via protocol, closemonitoring, taper off zsujjyef34. AnxietyStatus AcuteA&PContinue current zrxiajoypy97. PVD (peripheral vascular disease)Status ChronicA&PHistory of stent placement.Continue with Plavix, statin-Continue to monitor.14. DebilityStatus ChronicA&P-Supportive care-Consider PT/OT when patient is more alert.15. HypoalbuminemiaStatus ChronicA&PEncourage p.o. intake. Nutrition supplementation.Ensure p.o. 3 times daily.16. Polysubstance abuseStatus ChronicA&PThiamine, folic acid, multivitamin, no signs of rjqamkvgxc75. HypernatremiaStatus ResolvedA&IWzpxkosbu84. HyperglycemiaStatus AcuteA&PMonitor, taper ugfkrlt85. T1-T2 SUBACUTE FRACTUREStatus AcuteA&PPT, OT, fall precaution, pain medication as . Anemia of chronic diseaseStatus AcuteA&PWorsening anemia, no signs of bleeding, transfuse 3unit PRBC with appropriateresponse. Will monitor, further work-up as outpatientAdditional Fmlzz80-mrks-boq female patient underlying medical history of COPD O2 dependent,spinal stenosis, depression, dyslipidemia, type 2 diabetes, nicotine addiction,anxiety, hypothyroidism, debility, CKD, peripheral vascular disease,hypoalbuminemia, polysubstance abuse, initially admitted to [facility] for right upper lobe pneumonia, sepsis, deconditioning with frequentfall, transferred given complains of back pain and worsening leukocytosisDVT prophylaxis Heparin subcuDisposition short-term rehabResuscitation status Full codePlan discussed with patientCase discussed with catalytic case operator, nursing staffVTE ProphylaxisVTE Prophylaxis: Heparin subcu.DATE SIGNED: 06/03/20 Electronically SignedTIME SIGNED: 817 SAAD FRIED MD Name Value Range Interpretation Code Description Data Rosa rce(s) Supporting Document(s) ID Date Data Source [id number] 06/03/2020 06:12:00 AM EDT [facility] Name Value Range Interpretation Code Description Data Rosa rce(s) Supporting Document(s) FGLU 315 mg/dL 70-110 [facility] ID Date Data Source [id number] 06/02/2020 09:04:00 PM EDT [facility] Name Value Range Interpretation Code Description Data Rosa rce(s) Supporting Document(s) FGLU 309 mg/dL 70-110 [facility] ID Date Data Source [id number] 06/02/2020 06:12:00 PM EDT [facility] Name Value Range Interpretation Code Description Data Rosa rce(s) Supporting Document(s) FGLU 344 mg/dL 70-110 [facility] ID Date Data Source [id number] 06/02/2020 03:29:00 PM EDT [facility] [address] [id number] NOTEPATIENT NAME: COUTURE,ELA BATTENKEIKO PHYSICIAN: MICHAEL WANG, MDAUTHOR: Breezy GA, Zhang. DATE: 05/18/20 MR#: [id number] NOTE DATE: 06/02/20 RM#: [id number] TIME: 1539 : 45SubjectiveCC/Hx Present IllnessBack painEvents Since Last EntryCurrently alert oriented x3. Very poor historian. On chronic oxygen. Patientcomfortable, reported chronic back pain. Following command, tolerating p.o,Denies chest pain. Afebrile. All other review of system negativeObjectiveVital SignsVital Signs-24 HRS06/01604 2007 2152 2215Temp 98.2 97.9Pulse 70 79 79Resp 19 18B/P 102/60 174/81 174/80B/P MeanPulse Ox 95 94O2 Delivery Nasal cannula Nasal cannula Nasal cannulaO2 Flow Rate 3L 3L 1XXgG51406/02551 0748 0749 0749 0850Temp 97.7Pulse 76 76Resp 20B/P 170/79 170/79 170/79 170/79B/P MeanPulse Ox 93O2 Delivery Nasal cannula Nasal cannulaO2 Flow Rate 3L 4MJaY96006/02115 1334Temp 98.2Pulse 70 62Resp 17B/P 154/68 148/68B/P MeanPulse Ox 98O2 Delivery Nasal cannulaO2 Flow Rate 9XWoJ5Gzpynp/OutputIntake/Output Summary 24 hours06/01 1900 06/02 0700Intake Total [...] Status mood neutral, no hallucinationsResultsLaboratory DataRecent Labs-24 hours06/01628 2012 0432 3660 1121ChemistryPOC Glucose (70 - 110 mg/dL) 191 [...] essential hypertension Qualified Code: I10 - Essential(primary) dsgchhsovrae87. CKD (chronic kidney disease)Status ChronicA&P-Monitor renal function.11. DiabetesStatus ChronicA&PComplicated with hypoglycemia and hyperglycemiaLevemir 10 units daily, continue NovoLog via protocol, close monitoring, zgmmswubsaymy29. AnxietyStatus AcuteA&PContinue current nrromjxsyf84. PVD (peripheral vascular disease)Status ChronicA&PHistory of stent placement.Continue with Plavix, statin-Continue to monitor.14. DebilityStatus ChronicA&P-Supportive care-Consider PT/OT when patient is more alert.15. HypoalbuminemiaStatus ChronicA&PEncourage p.o. intake. Nutrition supplementation.Ensure p.o. 3 times daily.16. Polysubstance abuseStatus ChronicA&PThiamine, folic acid, multivitamin, no signs of esarpobjwb64. HypernatremiaStatus ResolvedA&PRgsvjacrb45. HyperglycemiaStatus AcuteA&PMonitor, taper qdqypcu07. T1-T2 SUBACUTE FRACTUREStatus AcuteA&PPT, OT, fall precaution, pain medication as xblbywy82. Anemia of chronic diseaseStatus AcuteA&PWorsening anemia, no signs of bleeding, transfuse 3unit PRBC with appropriateresponse. Will monitor, further work-up as outpatientAdditional Xgqso89-mmyb-gio female patient underlying medical history of COPD O2 de pendent,spinal stenosis, depression, dyslipidemia, type 2 diabetes, nicotine addiction,anxiety, hypothyroidism, debility, CKD, peripheral vascular disease,hypoalbuminemia, polysubstance abuse, initially admitted to [facility] for right upper lobe pneumonia, sepsis, deconditioning with frequentfall, transferred given complains of back pain and worsening leukocytosisDVT prophylaxis Heparin subcuDisposition short-term rehabResuscitation status Full codePlan discussed with patientCase discussed with catalytic case operator, nursing staffVTE ProphylaxisVTE Prophylaxis: Heparin subcu.DATE SIGNED: 06/02/20 Electronically SignedTIME SIGNED: 153 SAAD FRIED MD Name Value Range Interpretation Code Description Data Rosa rce(s) Supporting Document(s) ID Date Data Source [id number] 06/02/2020 01:01:00 PM EDT [facility] Name Value Range Interpretation Code Description Data Rosa rce(s) Supporting Document(s) FGLU 127 mg/dL 70-110 [facility] ID Date Data Source [id number] 06/02/2020 07:28:00 AM EDT [facility] Name Value Range Interpretation Code Description Data Rosa rce(s) Supporting Document(s) FGLU 237 mg/dL 70-110 [facility] ID Date Data Source [id number] 06/02/2020 05:41:00 AM EDT [facility] Name Value Range Interpretation Code Description Data Rosa rce(s) Supporting Document(s) Hemoglobin 10.6 g/dL 12.0-16.0 [facility] ID Date Data Source [id number] 06/01/2020 11:28:00 PM EDT [facility] Name Value Range Interpretation Code Description Data Rosa rce(s) Supporting Document(s) FGLU 181 mg/dL 70-110 [facility] ID Date Data Source [id number] 06/01/2020 08:53:00 PM EDT [facility] Name Value Range Interpretation Code Description Data Rosa rce(s) Supporting Document(s) FGLU 191 mg/dL 70-110 [facility] ID Date Data Source [id number] 06/01/2020 03:15:00 PM EDT [facility] [address] [id number] NOTEPATIENT NAME: ELA PONCE PHYSICIAN: MICHAEL WANG MDAUTHOR: Selma Caballero. DATE: 05/18/20 MR#: [id number] NOTE DATE: 06/01/20 RM#: [id number] TIME: 1519 [...] Nasal cannulaO2 Flow Rate 3 l 3L 3EAqC53106/01 0625 0736 0737 0737Temp 98.1Pulse 75 75Resp 19B/P 173/74 180/90 180/90 180/90 180/90B/P MeanPulse Ox 93 94O2 Delivery Nasal cannula Nasal cannulaO2 Flow Rate 3L 5UTsZ36006/01 0934TempPulse 77RespB/P 180/79B/P MeanPulse OxO2 Delivery Nasal cannulaO2 Flow Rate 5JQdJ0Kieplk/OutputIntake/Output Summary 24 hours05/31 1900 06/01 0700Intake Total [...] Status mood neutral, no hallucinationsResultsLaboratory DataRecent Labs-24 hours05/3110 0611ChemistrySodium (136 - 147 mmol/L) 143Potassium (3.5 - [...] essential hypertension Qualified Code: I10 - Essential(primary) cobtjltalsww92. CKD (chronic kidney disease)Status Xorrcoz05. DiabetesStatus Dirzorv06. AnxietyStatus Acute13. PVD (peripheral vascular disease)Status Bzwosbr62. DebilityStatus Enrrviq87. HypoalbuminemiaStatus Vtjbhtj29. Polysubstance abuseStatus Fznwmhz26. HyperglycemiaStatus Acute18. T1-T2 SUBACUTE FRACTUREStatus Acute19. Anemia [...] essential hypertension Qualified Code: I10 - Essential(primary) zlzmatsbgbof09. CKD (chronic kidney disease)Status ChronicA&PStable continue to [...] this patient at this time. Wewill await [facility] [facility]. This plan is the patient's wishes.Resuscitation status Full codePlan discussed with patient, sonMando discussed with catalytic case operator, nursing staffDATE SIGNED: 06/01/20 Electronically SignedTIME SIGNED: 1519 CR FAJARDO Name Value Range Interpretation Code Description Data Rosa rce(s) Supporting Document(s) ID Date Data Source [id number] 06/01/2020 03:18:00 PM EDT [facility] Name Value Range Interpretation Code Description Data Rosa rce(s) Supporting Document(s) FGLU 157 mg/dL 70-110 [facility] ID Date Data Source [id number] 06/01/2020 06:19:00 AM EDT [facility] Name Value Range Interpretation Code Description Data Rosa rce(s) Supporting Document(s) FGLU 215 mg/dL 70-110 [facility] ID Date Data Source [id number] 06/01/2020 05:52:00 AM EDT [facility] Name Value Range Interpretation Code Description Data Rosa rce(s) Supporting Document(s) GLU 179 mg/dL 70-110 [facility] Patients taking Sulfasalazine may have f alsely depressedGlucose levels. Patients taking Sulfapyridine may havefalsely elevated Glucose levels. Patients should be drawnfor Glucose before the initial administration of eitherdrug. BUN 29 mg/dL 7-23 [facility] CRE 1.100 mg/dL 0.500-1.300 [facility] GFR 52 mL/min [facility] CHLORIDE 110 mmol/L 99-110 [facility] NA 143 mmol/L 136-147 [facility] POTASSIUM 4.0 mmol/L 3.5-5.1 [facility] TCO2 30 mmol/L 20-33 [facility] ANION GAP 7.0 10.0-20.0 [facility] CA 8.4 mg/dL 8.3-10.7 [facility] ALKALINE PHOS 191 U/L 45-117 [facility] TP 5.9 g/dL 6.0-7.8 [facility] ALB 2.3 g/dL 3.5-5.0 [facility] ESRD Dialysis patient Albumin reference range: 2.9-4.4 g/dL GL 3.6 g/dL 2.3-3.5 [facility] A/G 0.6 1.0-2.5 [facility] T. BILIRUBIN 0.5 mg/dL 0.1-1.1 [facility] [place] Total Bilirubin is n ot recommended forpatients undergoing treatment with eltrombopag (Promacta)due to the potential for falsely elevated results. ALTI 31 U/L 6-54 [facility] Patients taking Sulfasalazine and/or Sul fapyridine may havefalsely depressed ALT levels. Patients should be drawn forALT before the initial administration of either drug. AST 33 U/L 6-38 [facility] Patients taking Sulfasalazine and/or Sul fapyridine may havefalsely depressed AST levels. Patients should be drawn forAST before the initial administration of either drug. ID Date Data Source [id number] 06/01/2020 05:52:00 AM EDT [facility] Name Value Range Interpretation Code Description Data Rosa rce(s) Supporting Document(s) MAGNESIUM 1.8 mg/dL 1.6-2.6 [facility] ID Date Data Source [id number] 06/01/2020 05:27:00 AM EDT [facility] Name Value Range Interpretation Code Description Data Rosa rce(s) Supporting Document(s) WBC 9.52 x10E3/uL 4.0-10.5 [facility] RBC 3.54 x10E6/uL 4.20-5.40 [facility] Hemoglobin 10.6 g/dL 12.0-16.0 [facility] Delta: 7.6 on 05/31/20-499 Hematocrit 32.3 % 37.0-47.0 [facility] Delta: 24.1 on 05/31/20-499 MCV 91.2 fL 81.0-99.0 [facility] Delta: 97.2 on 05/31/20-499 MCH 29.9 pg 27.0-31.0 [facility] MCHC 32.8 g/dL 32.7-35.6 [facility] RDW 18.0 % 11.5-14.0 [facility] Platelet count 158 x10E3/uL 150-450 N [facility] ital MPV 9.5 fl 6.9-9.5 [facility] Neutrophils 82.7 % 34-64 [facility] Lymphocytes 7.7 % 25-45 [facility] Monocytes 6.9 % 1.7-10.6 [facility] Eosinophils 1.7 % 0.4-7.0 [facility] Basophils 0.2 % 0.1-2.0 [facility] Imm. Gran. 0.8 % 0.1-2.0 [facility] Abs. Neutro. 7.87 x10E3/uL 1.2-7.6 [facility] Abs. Lymph. 0.73 x10E3/uL 1.0-3.5 [facility] Abs. [place]. 0.66 x10E3/uL 0.1-1.0 [facility] Abs. Eosin. 0.16 x10E3/uL 0.1-0.7 [facility] Abs. Baso. 0.02 x10E3/uL 0.0-0.1 [facility] Abs. Imm. Gran. 0.08 x10E3/uL 0.0-0.1 [facility] ANRBC% 0 % 0 [facility] ID Date Data Source [id number] 06/01/2020 12:26:00 AM EDT [facility] Name Value Range Interpretation Code Description Data Rosa rce(s) Supporting Document(s) FGLU 190 mg/dL 70-110 [facility] ID Date Data Source [id number] 05/31/2020 06:26:00 PM EDT [facility] Name Value Range Interpretation Code Description Data Rosa rce(s) Supporting Document(s) FGLU 192 mg/dL 70-110 [facility] ID Date Data Source [id number] 05/31/2020 02:27:00 PM EDT [address] [id number] NOTEPATIENT NAME: ALFREDO PONCENCHE CB PHYSICIAN: MICHAEL WANG MDAUTHOR: Selma Caballero. DATE: 05/18/20 MR#: [id number] NOTE DATE: 05/31/20 RM#: [id number] TIME: 1508 [...] is agreeable to transfusion of 2 units. Iwill give her 20 of Lasix between units. She is quite upset that [facility]. Mild clinical dehydration is resolved.Awaiting rehab to discharge. Encourage p.o. today. Chest x-ray shows clearingpneumonia with absent left pneumonia based on my review of old imaging report.Leukocytosis is improved. Urine culture is negative. She will have follow-uplabs in a.m.Review of SystemsSystems reviewed and negative Constitutional, Integumentary, Eyes, ENT,Respiratory, Cardiovascular, GI, , Musculoskeletal, Aldo, Endocrine,Neurology, Psych, Allergy/ImmunologyObjectiveVital SignsVital Signs-24 HRS05/3038 2038 2145 2157Temp 98.1 97.1Pulse 76 78 76Resp 18 16B/P 122/68 160/63 160/63B/P MeanPulse Ox 91 90O2 Delivery Nasal cannula Nasal cannula Nasal cannulaO2 Flow Rate 3 3L 6HRyE145/05/31471060 1861 0835 0837 0840Temp 97.8Pulse 74 75Resp 16B/P 165/72 142/58 142/58 142/58B/P MeanPulse Ox 94O2 Delivery Nasal cannula Nasal cannulaO2 Flow Rate 4L 5NpA843/664007VzilSucra 75RespB/P 142/58B/P MeanPulse OxO2 DeliveryO2 Flow HdfgGcD0Rvuauq/OutputIntake/Output Summary 24 hours05/30 1900 05/31 0700Intake Total [...] essential hypertension Qualified Code: I10 - Essential(primary) likbnjjrrywo00. CKD (chronic kidney disease)Status Kdkfkdq08. DiabetesStatus Omdbexu75. AnxietyStatus Acute13. PVD (peripheral vascular disease)Status Clhgchu38. DebilityStatus Xfqmnao58. HypoalbuminemiaStatus Curcnyd77. Polysubstance abuseStatus Zuwltuq12. HyperglycemiaStatus Acute18. T1-T2 SUBACUTE FRACTUREStatus Acute19. Anemia [...] essential hypertension Qualified Code: I10 - Essential(primary) grprvpioxbjm54. CKD (chronic kidney disease)Status ChronicA&PStable continue to [...] option for this patient at this time. [facility]. This plan is the patient's wishes.Resuscitation status Full codeResuscitation status Full codeAdditional NotesConsiderations to discontinuing her triple-lumen catheter should be given at 14days. Triple-lumen was inserted 05/18/2020. Hopefully we will discontinue thistomorrow if she is not.DATE SIGNED: 05/31/20 Electronically SignedTIME SIGNED: 1508 CR TASHA FAJARDO Name Value Range Interpretation Code Description Data Rosa rce(s) Supporting Document(s) ID Date Data Source [id number] 05/31/2020 03:10:00 PM EDT [facility] Name Value Range Interpretation Code Description Data Rosa rce(s) Supporting Document(s) FGLU 210 mg/dL 70-110 [facility] ID Date Data Source [id number] 05/31/2020 10:22:00 AM EDT [facility] COMMENTS TO LAB: off am labs please Name Value Range Interpretation Code Description Data Rosa rce(s) Supporting Document(s) RETIC % 4.56 % 0.5-2.7 [facility] RETIC ABS. # 0.11 x10E6/uL 0.02-0.15 N [facility] IMM. RETIC FRAC 16.00 % 15-20 [facility] HEMO 33.9 pg 29-35 [facility] ID Date Data Source [id number] 05/31/2020 09:15:00 AM EDT [facility] COMMENTS TO LAB: off am labs please Name Value Range Interpretation Code Description Data Rosa rce(s) Supporting Document(s) SUZY 163.6 ng/mL 8.0-252.0 [facility] ID Date Data Source [id number] 05/31/2020 08:32:00 AM EDT [facility] COMMENTS TO LAB: off am labs please Name Value Range Interpretation Code Description Data Rosa rce(s) Supporting Document(s) FE 62 ug/dL 42-175 [facility] Patients treated with metal-binding drug s(i.e. Deferoxamine) may have depressed iron values aschelated iron may not properly react in the iron assay. UNBOUND IRON BC 127 ug/dL 130-375 [facility] TOTAL IRON BC 189.0 ug/dL 250-400 [facility] % IRON SAT. 32.8 % 30-35 [facility] ID Date Data Source [id number] 05/31/2020 09:20:00 AM EDT [facility] Name Value Range Interpretation Code Description Data Rosa rce(s) Supporting Document(s) FGLU 300 mg/dL 70-110 [facility] ID Date Data Source [id number] 06/01/2020 07:46:00 PM EDT [facility] Name Value Range Interpretation Code Description Data Rosa rce(s) Supporting Document(s) [id number] TRANSFUSED PRODUCT: PACKED CELLS CO UNT: 2 [facility] ID Date Data Source [id number] 06/01/2020 07:46:00 PM EDT [facility] *Clinically Significant Acute Blood [place] N *Hgb < or = to 7.0g/dL or Hct < or = to 21% N *Hgb < 8.0g/dL or Hct < 24% and PT Hemodynamically Unstable N *Hgb < 8.0 for Anemia and an Acute CA or Unstable Angina Y *Hgb < 9.0g/dL with Chronic Transfusion Therapy N *Maximum Blood Order Schedule N *Other (must indicate reason for transfusion if not above): anemia w/ CAD, COPDIrradiated? NCMV Negative? NTransfuse 2units over 3UNIT NUMBER: [id number]: YPRODUCT: LEUKO REDUCED RED BLOOD CELLSSOURCE: [facility] [place] TYPE: A NEGATIVEVOLUME: 283MLCROSSMATCH COMPONENTS:00UNIT NUMBER: [id number]: YPRODUCT: LEUKO REDUCED RED BLOOD CELLSSOURCE: [facility] [place]ENN[place] TYPE: A NEGATIVEVOLUME: 309MLCROSSMATCH COMPONENTS:00 Name Value Range Interpretation Code Description Data Rosa rce(s) Supporting Document(s) ID Date Data Source [id number] 06/01/2020 07:46:00 PM EDT [facility] *Clinically Significant Acute Blood [place] N *Hgb < or = to 7.0g/dL or Hct < or = to 21% N *Hgb < 8.0g/dL or Hct < 24% and PT Hemodynamically Unstable N *Hgb < 8.0 for Anemia and an Acute CA or Unstable Angina Y *Hgb < 9.0g/dL with Chronic Transfusion Therapy N *Maximum Blood Order Schedule N *Other (must indicate reason for transfusion if not above): anemia w/ CAD, COPDIrradiated? NCMV Negative? NTransfuse 2units over 3 Name Value Range Interpretation Code Description Data Rosa rce(s) Supporting Document(s) ANTIBODY ID ANTI D N [facility] CAN NOT RULE OUT C AND E ID Date Data Source [id number] 06/01/2020 07:46:00 PM EDT [facility] *Clinically Significant Acute Blood [place] N *Hgb < or = to 7.0g/dL or Hct < or = to 21% N *Hgb < 8.0g/dL or Hct < 24% and PT Hemodynamically Unstable N *Hgb < 8.0 for Anemia and an Acute CA or Unstable Angina Y *Hgb < 9.0g/dL with Chronic Transfusion Therapy N *Maximum Blood Order Schedule N *Other (must indicate reason for transfusion if not above): anemia w/ CAD, COPDIrradiated? NCMV Negative? NTransfuse 2units over 3 Name Value Range Interpretation Code Description Data Rosa rce(s) Supporting Document(s) BLOOD TYPE AB NEGATIVE N [facility] ANTIBODY SCREEN POSITIVE [facility] Date Data Source [id number] 05/31/2020 09:35:00 AM EDT [facility] Name Value Range Interpretation Code Description Data Rosa rce(s) Supporting Document(s) DATIgG NEGATIVE NEGATIVE N [facility] ID Date Data Source [id number] 05/31/2020 06:49:00 AM EDT [facility] Name Value Range Interpretation Code Description Data Rosa rce(s) Supporting Document(s) MAGNESIUM 2.1 mg/dL 1.6-2.6 N [facility] ID Date Data Source [id number] 05/31/2020 06:49:00 AM EDT [facility] Name Value Range Interpretation Code Description Data Rosa rce(s) Supporting Document(s) GLU 224 mg/dL 70-110 [facility] Patients taking Sulfasalazine may have f alsely depressedGlucose levels. Patients taking Sulfapyridine may havefalsely elevated Glucose levels. Patients should be drawnfor Glucose before the initial administration of eitherdrug. BUN 27 mg/dL 7-23 [facility] CRE 1.120 mg/dL 0.500-1.300 [facility] GFR 51 mL/min [facility] CHLORIDE 110 mmol/L 99-110 [facility] NA 143 mmol/L 136-147 [facility] POTASSIUM 4.5 mmol/L 3.5-5.1 [facility] TCO2 29 mmol/L 20-33 [facility] ANION GAP 8.5 10.0-20.0 [facility] [place] 8.2 mg/dL 8.3-10.7 [facility] ALKALINE PHOS 159 U/L 45-117 [facility] TP 5.1 g/dL 6.0-7.8 [facility] ALB 2.1 g/dL 3.5-5.0 [facility] ESRD Dialysis patient Albumin reference range: 2.9-4.4 g/dL GL 3.0 g/dL 2.3-3.5 [facility] A/G 0.7 1.0-2.5 [facility] T. BILIRUBIN 0.3 mg/dL 0.1-1.1 [facility] [place] Total Bilirubin is n ot recommended forpatients undergoing treatment with eltrombopag (Promacta)due to the potential for falsely elevated results. ALTI 26 U/L 6-54 [facility] Patients taking Sulfasalazine and/or Sul fapyridine may havefalsely depressed ALT levels. Patients should be drawn forALT before the initial administration of either drug. AST 18 U/L 6-38 [facility] Patients taking Sulfasalazine and/or Sul fapyridine may havefalsely depressed AST levels. Patients should be drawn forAST before the initial administration of either drug. ID Date Data Source [id number] 05/31/2020 06:27:00 AM EDT [facility] Name Value Range Interpretation Code Description Data Rosa rce(s) Supporting Document(s) WBC 10.61 x10E3/uL 4.0-10.5 [facility] RBC 2.48 x10E6/uL 4.20-5.40 L [facility] Hemoglobin 7.6 g/dL 12.0-16.0 L [facility] Hematocrit 24.1 % 37.0-47.0 L [facility] MCV 97.2 fL 81.0-99.0 N [facility] MCH 30.6 pg 27.0-31.0 N [facility] MCHC 31.5 g/dL 32.7-35.6 L [facility] RDW 16.6 % 11.5-14.0 [facility] Platelet count 167 x10E3/uL 150-450 [facility] MPV 10.0 fl 6.9-9.5 H [facility] Neutrophils 84.1 % 34-64 [facility] Lymphocytes 8.2 % 25-45 L [facility] Monocytes 5.8 % 1.7-10.6 [facility] Eosinophils 0.8 % 0.4-7.0 [facility] Basophils 0.3 % 0.1-2.0 N [facility] Imm. Gran. 0.8 % 0.1-2.0 N [facility] Abs. Neutro. 8.92 x10E3/uL 1.2-7.6 [facility] Abs. Lymph. 0.87 x10E3/uL 1.0-3.5 [facility] Abs. [place]. 0.62 x10E3/uL 0.1-1.0 [facility] Abs. Eosin. 0.09 x10E3/uL 0.1-0.7 [facility] Abs. Baso. 0.03 x10E3/uL 0.0-0.1 [facility] Abs. Imm. Gran. 0.08 x10E3/uL 0.0-0.1 [facility] ANRBC% 0 % 0 [facility] ID Date Data Source [id number] 05/31/2020 01:23:00 AM EDT [facility] Name Value Range Interpretation Code Description Data Rosa rce(s) Supporting Document(s) URINE RBC 0-2 RBCs/HPF NONE SEEN [facility] URINE WBC 11-20 WBCs/HPF NONE SEEN [facility] l A URINE CULTURE HAS BEEN ADDED TO THIS S PECIMEN URINE BACTERIA Few NONE SEEN [facility] URINE EPI. Few NONE SEEN [facility] URINE YEAST Many NONE SEEN [facility] A URINE CULTURE HAS BEEN ADDED TO THIS S PECIMEN ID Date Data Source [id number] 05/31/2020 01:23:00 AM EDT [facility] Name Value Range Interpretation Code Description Data Rosa rce(s) Supporting Document(s) URINE COLOR Yellow [facility] UAPR Cloudy [facility] UGLU Negative NEGATIVE [facility] URINE BILIRUBIN [facility] Negative NEGATIVE [facility] USG 1.015 1.010-1.025 [facility] UBLO Negative NEGATIVE [facility] UpH 5.5 5.0-8.0 [facility] UPRO 3+ Negative [facility] UUB 0.2 mg/dL 0.2-1.0 [facility] UNIT Negative Negative [facility] ULEU Trace Negative [facility] ID Date Data Source [id number] 05/30/2020 11:33:00 PM EDT [facility] Name Value Range Interpretation Code Description Data Rosa rce(s) Supporting Document(s) FGLU 214 mg/dL 70-110 [facility] ID Date Data Source [id number] 05/30/2020 04:51:00 PM EDT [facility] Name Value Range Interpretation Code Description Data Rosa rce(s) Supporting Document(s) FGLU 129 mg/dL 70-110 [facility] ID Date Data Source [id number] 05/30/2020 02:17:00 PM EDT [facility] [address] [id number] NOTEPATIENT NAME: COUTURE,ELA BATTENDING PHYSICIAN: VIVI MELGOZA: Selma Caballero. DATE: 05/18/20 MR#: [id number] NOTE DATE: 05/30/20 RM#: [id number] TIME: 1426 : 45SubjectiveEvents Since Last EntryPatient seen and examined today. Chart reviewed. She did not pass a PT homesafety evaluation yesterday and is unsafe for discharge to home. PT feels sheneeds short term rehab. Patient feeling a bit fatigued today. She is quiteupset that she is not getting rehab at [facility]. Labs show some milddehydration. Will give a [...] cannula Nasal cannulaO2 Flow Rate 3L 3L 6NBbE84805/30 0930 0930 0931 0938TempPulse 82 82RespB/P 169/65 169/65 169/65 169/65 B/P MeanPulse OxO2 Delivery Nasal cannulaO2 Flow Rate 0JwL4Zucwtq/OutputIntake/Output Summary 24 hours05/29 1900 05/30 0700Intake Total [...] Status mood neutral, no hallucinationsResultsLaboratory DataRecent Labs-24 hours05/29 2035 0619 0948 1142ChemistrySodium (136 - 147 mmol/L) 141Potassium [...] essential hypertension Qualified Code: I10 - Essential(primary) ttzulobcfpnp26. CKD (chronic kidney disease)Status Jwiaptm11. DiabetesStatus Ywtfrjw67. AnxietyStatus Acute13. PVD (peripheral vascular disease)Status Euensjl58. DebilityStatus Gxzjmdn45. HypoalbuminemiaStatus Hfsmmci31. Polysubstance abuseStatus Muqaelv66. HyperglycemiaStatus Acute18. T1-T2 SUBACUTE FRACTUREStatus Acute19. Anemia [...] essential hypertension Qualified Code: I10 - Essential(primary) josbfjzloccx08. CKD (chronic kidney disease)Status ChronicA&PStable continue to [...] this patient at this time. [facility] This plan is the patient's wishes.Resuscitation status Full codePlan discussed with patientCase discussed with catalytic case operator, nursing staffDATE SIGNED: 05/30/20 Electronically SignedTIME SIGNED: 1426 CR SRIDHARAna FAJARDO Name Value Range Interpretation Code Description Data Rosa rce(s) Supporting Document(s) ID Date Data Source [id number] 05/30/2020 11:47:00 AM EDT [facility] Name Value Range Interpretation Code Description Data Rosa rce(s) Supporting Document(s) FGLU 325 mg/dL 70-110 [facility] ID Date Data Source [id number] 05/30/2020 09:55:00 AM EDT [facility] Exam Number: [id number] OF EXAMINATIO N: 05/30/2020 9:04 EDTCHEST SINGLE [...] [place] M.D. :43 EDT Reported By: Kemal DE [place] VE[place] M.D. Signed By: Pramod DE [place] M.D. Name Value Range Interpretation Code Description Data Rosa rce(s) Supporting Document(s) ID Date Data Source [id number] 05/30/2020 10:32:00 AM EDT [facility] Name Value Range Interpretation Code Description Data Rosa rce(s) Supporting Document(s) GLU 285 mg/dL 70-110 [facility] Patients taking Sulfasalazine may have f alsely depressedGlucose levels. Patients taking Sulfapyridine may havefalsely elevated Glucose levels. Patients should be drawnfor Glucose before the initial administration of eitherdrug. BUN 25 mg/dL 7-23 [facility] CRE 1.330 mg/dL 0.500-1.300 [facility] GFR 41 mL/min [facility] CHLORIDE 108 mmol/L 99-110 [facility] NA 141 mmol/L 136-147 [facility] POTASSIUM 4.0 mmol/L 3.5-5.1 [facility] TCO2 29 mmol/L 20-33 [facility] ANION GAP 8.0 10.0-20.0 [facility] CA 8.1 mg/dL 8.3-10.7 [facility] ALKALINE PHOS 170 U/L 45-117 [facility] TP 5.2 g/dL 6.0-7.8 [facility] ALB 2.2 g/dL 3.5-5.0 [facility] ESRD Dialysis patient Albumin reference range: 2.9-4.4 g/dL GL 3.0 g/dL 2.3-3.5 [facility] A/G 0.7 1.0-2.5 [facility] T. BILIRUBIN 0.3 mg/dL 0.1-1.1 [facility] [place] Total Bilirubin is n ot recommended forpatients undergoing treatment with eltrombopag (Promacta)due to the potential for falsely elevated results. ALTI 30 U/L 6-54 [facility] Patients taking Sulfasalazine and/or Sul fapyridine may havefalsely depressed ALT levels. Patients should be drawn forALT before the initial administration of either drug. AST 24 U/L 6-38 [facility] Patients taking Sulfasalazine and/or Sul fapyridine may havefalsely depressed AST levels. Patients should be drawn forAST before the initial administration of either drug. ID Date Data Source [id number] 05/30/2020 06:22:00 AM EDT [facility] Name Value Range Interpretation Code Description Data Rosa rce(s) Supporting Document(s) FGLU 259 mg/dL 70-110 [facility] ID Date Data Source [id number] 05/29/2020 08:39:00 PM EDT [facility] Name Value Range Interpretation Code Description Data Rosa rce(s) Supporting Document(s) FGLU 314 mg/dL 70-110 [facility] ID Date Data Source [id number] 05/29/2020 10:01:00 PM EDT [facility] Name Value Range Interpretation Code Description Data Rosa rce(s) Supporting Document(s) FGLU 108 mg/dL 70-110 [facility] ID Date Data Source [id number] 05/29/2020 01:50:00 PM EDT [facility] [address] [id number] NOTEPATIENT NAME: ELA PONCE BATREGGIE PHYSICIAN: MICHAEL WANG MDAUTHOR: Selma Caballero. DATE: 05/18/20 MR#: [id number] NOTE DATE: 05/29/20 RM#: [id number] TIME: 1353 [...] Ox 96O2 Delivery Nasal cannulaO2 Flow Rate 3PFyE08105/[id number] 7501 0803 0811 0819Temp 98.5 97.7Pulse 85 92 90 90Resp 17 17B/P 165/75 161/75 187/87 187/87B/P MeanPulse Ox 95 90O2 Delivery Nasal cannulaO2 Flow Rate 0AkT56905/29593945 0825TempPulseRespB/P 187/87 187/87B/P MeanPulse OxO2 DeliveryO2 Flow OmkbTcB8Cpoixx/OutputIntake/Output Summary 24 hours05/28 1900 05/29 0700Intake Total [...] Immat Gran (auto) (0.0 - 0.1 Cancelled 0.60g73V6/uL)Absolute Neuts (auto) (1.2 - 7.6 Cancelled 11.00 Hx10E3/uL)Absolute Lymphs (auto) (1.0 - 3.5 Cancelled 0.92 Lx10E3/uL)Absolute Monos (auto) (0.1 - 1.0 Cancelled 0.63v84I1/uL)Absolute Eos (auto) (0.1 - 0.7 Cancelled 0.75c54T0/uL)Absolute Basos (auto) (0.0 - 0.1 Cancelled 0.55v32N1/uL)Nucleated RBC % (auto) (0 %) 004/394373PngiqgaavHGY Glucose (70 - 110 mg/dL) 242 HResults [...] essential hypertension Qualified Code: I10 - Essential(primary) ewgonqpxegkk08. CKD (chronic kidney disease)Status Mnuaqet01. DiabetesStatus Dderfjw27. AnxietyStatus Acute13. PVD (peripheral vascular disease)Status Riypzes28. DebilityStatus Etctqnp41. HypoalbuminemiaStatus Qhbsdej65. Polysubstance abuseStatus Nzspiml84. HyperglycemiaStatus Acute18. T1-T2 SUBACUTE FRACTUREStatus Acute19. Anemia [...] essential hypertension Qualified Code: I10 - Essential(primary) qdrnrqxyspxx34. CKD (chronic kidney disease)Status ChronicA&PStable continue to [...] chronic steroid useTime spent 35 minutesDischarge [facility] versus discharged home if cleared by PTtomorrow.Resuscitation status Full codePlan discussed with patient, sonCase discussed with catalytic case operator, nursing staffDATE SIGNED: 05/29/20 Electronically SignedTIME SIGNED: 1353 CR TASHA FAJARDO Name Value Range Interpretation Code Description Data Rosa rce(s) Supporting Document(s) ID Date Data Source [id number] 05/29/2020 01:29:00 PM [facility] Name Value Range Interpretation Code Description Data Rosa rce(s) Supporting Document(s) FGLU 242 mg/dL 70-110 [facility] ID Date Data Source [id number] 05/29/2020 06:10:00 AM EDT [facility] Name Value Range Interpretation Code Description Data Rosa rce(s) Supporting Document(s) FGLU 259 mg/dL 70-110 [facility] ID Date Data Source [id number] 05/29/2020 05:58:00 AM EDT [facility] Name Value Range Interpretation Code Description Data Rosa rce(s) Supporting Document(s) C-REACTIVE PROT 5.98 mg/dL 0.00-0.49 [facility] ID Date Data Source [id number] 05/29/2020 05:58:00 AM EDT [facility] Name Value Range Interpretation Code Description Data Rosa rce(s) Supporting Document(s) MAGNESIUM 2.1 mg/dL 1.6-2.6 [facility] ID Date Data Source [id number] 05/29/2020 05:58:00 AM EDT [facility] Name Value Range Interpretation Code Description Data Rosa rce(s) Supporting Document(s) GLU 204 mg/dL 70-110 [facility] Patients taking Sulfasalazine may have f alsely depressedGlucose levels. Patients taking Sulfapyridine may havefalsely elevated Glucose levels. Patients should be drawnfor Glucose before the initial administration of eitherdrug. BUN 19 mg/dL 7-23 [facility] CRE 1.140 mg/dL 0.500-1.300 [facility] GFR 50 mL/min [facility] CHLORIDE 109 mmol/L 99-110 [facility] NA 143 mmol/L 136-147 [facility] POTASSIUM 4.3 mmol/L 3.5-5.1 [facility] TCO2 28 mmol/L 20-33 [facility] ANION GAP 10.3 10.0-20.0 [facility] CA 8.1 mg/dL 8.3-10.7 [facility] ALKALINE PHOS 143 U/L 45-117 [facility] TP 5.1 g/dL 6.0-7.8 [facility] ALB 2.3 g/dL 3.5-5.0 [facility] ESRD Dialysis patient Albumin reference range: 2.9-4.4 g/dL GL 2.8 g/dL 2.3-3.5 [facility] A/G 0.8 1.0-2.5 [facility] T. BILIRUBIN 0.4 mg/dL 0.1-1.1 [facility] [place] Total Bilirubin is n ot recommended forpatients undergoing treatment with eltrombopag (Promacta)due to the potential for falsely elevated results. ALTI 26 U/L 6-54 [facility] Patients taking Sulfasalazine and/or Sul fapyridine may havefalsely depressed ALT levels. Patients should be drawn forALT before the initial administration of either drug. AST 25 U/L 6-38 [facility] Patients taking Sulfasalazine and/or Sul fapyridine may havefalsely depressed AST levels. Patients should be drawn forAST before the initial administration of either drug. ID Date Data Source [id number] 05/29/2020 05:27:00 AM EDT [facility] Name Value Range Interpretation Code Description Data Rosa rce(s) Supporting Document(s) WBC 12.97 x10E3/uL 4.0-10.5 [facility] RBC 2.71 x10E6/uL 4.20-5.40 [facility] Hemoglobin 8.3 g/dL 12.0-16.0 [facility] Hematocrit 25.4 % 37.0-47.0 [facility] MCV 93.7 fL 81.0-99.0 [facility] MCH 30.6 pg 27.0-31.0 [facility] MCHC 32.7 g/dL 32.7-35.6 [facility] RDW 15.9 % 11.5-14.0 [facility] Platelet count 157 x10E3/uL 150-450 [facility] ital MPV 9.8 fl 6.9-9.5 [facility] Neutrophils 84.9 % 34-64 [facility] Lymphocytes 7.1 % 25-45 [facility] Monocytes 6.2 % 1.7-10.6 [facility] Eosinophils 0.8 % 0.4-7.0 [facility] Basophils 0.3 % 0.1-2.0 [facility] Imm. Gran. 0.7 % 0.1-2.0 [facility] Abs. Neutro. 11.00 x10E3/uL 1.2-7.6 [facility] Abs. Lymph. 0.92 x10E3/uL 1.0-3.5 [facility] Abs. [place]. 0.81 x10E3/uL 0.1-1.0 [facility] Abs. Eosin. 0.11 x10E3/uL 0.1-0.7 [facility] Abs. Baso. 0.04 x10E3/uL 0.0-0.1 [facility] Abs. Imm. Gran. 0.09 x10E3/uL 0.0-0.1 N [facility] spital ANRBC% 0 % 0 [facility] ID Date Data Source [id number] 05/28/2020 11:36:00 PM EDT [facility] Name Value Range Interpretation Code Description Data Rosa rce(s) Supporting Document(s) FGLU 166 mg/dL 70-110 [facility] ID Date Data Source [id number] 05/28/2020 08:24:00 PM EDT [facility] Name Value Range Interpretation Code Description Data Rosa rce(s) Supporting Document(s) FGLU 72 mg/dL 70-110 [facility] ID Date Data Source [id number] 05/28/2020 12:45:00 PM EDT [facility] [place] [address] [id number] NOTEPATIENT NAME: ELA PONCE PHYSICIAN: MICHAEL WANG, MDAUTHOR: Selma Caballero. DATE: 05/18/20 MR#: [id number] NOTE DATE: 05/28/20 RM#: [id number] TIME: 1251 [...] cannula Nasal cannulaO2 Flow Rate 2 LITERS [id number] 5298 0815TempPulse 83 83RespB/P 175/78 175/78 175/78B/P MeanPulse OxO2 DeliveryO2 Flow ZppjPoK7Lsltpy/OutputIntake/Output Summary 24 hours05/27 1900 05/28 0700Intake Total [...] Status mood neutral, no hallucinationsResultsLaboratory DataRecent Labs-24 hours/17 05/28 04/220058 8691 0521ChemistrySodium (136 - 147 mmol/L) 144Potassium (3.5 [...] essential hypertension Qualified Code: I10 - Essential(primary) glnadzwjldpu45. CKD (chronic kidney disease)Status Borfunf48. DiabetesStatus Tygadqi45. AnxietyStatus Acute13. PVD (peripheral vascular disease)Status Huilsyf28. DebilityStatus Hfbbial21. HypoalbuminemiaStatus Hbejrwt68. Polysubstance abuseStatus Urfrjsr66. HyperglycemiaStatus Acute18. T1-T2 SUBACUTE FRACTUREStatus Acute19. Anemia [...] essential hypertension Qualified Code: I10 - Essential(primary) wfoveugmkcbl58. CKD (chronic kidney disease)Status ChronicA&PStable continue to monitor as needed.11. DiabetesStatus ChronicA&PContinue long-acting insulin as well as a CHS with sliding scale coverage.Taper steroids. Blood sugars have not been optimal and will increase long-acting insulin to 10 units subcu daily.12. AnxietyStatus AcuteA&PContinue BuSpar benzodiazepine.13. PVD (peripheral vascular disease)Status [employer] Yecenia&PContinue Plavix and statin. Note that patient [...] chronic steroid useTime spent 35 minutesDischarge to [facility] versus discharged home if cleared by PTtomorrow.Resuscitation status Full codePlan discussed with patient, sonCase discussed with catalytic case operator, nursing staffDATE SIGNED: 05/28/20 Electronically SignedTIME SIGNED: 1251 CR FAJARDO Name Value Range Interpretation Code Description Data Rosa rce(s) Supporting Document(s) ID Date Data Source [id number] 05/28/2020 01:19:00 PM EDT [facility] Name Value Range Interpretation Code Description Data Rosa rce(s) Supporting Document(s) FGLU 125 mg/dL 70-110 [facility] ID Date Data Source [id number] 05/28/2020 08:34:00 AM EDT [facility] Name Value Range Interpretation Code Description Data Rosa rce(s) Supporting Document(s) FGLU 232 mg/dL 70-110 [facility] ID Date Data Source [id number] 05/28/2020 06:17:00 AM EDT [facility] Name Value Range Interpretation Code Description Data Rosa rce(s) Supporting Document(s) MAGNESIUM 2.0 mg/dL 1.6-2.6 [facility] ID Date Data Source [id number] 05/28/2020 06:17:00 AM EDT [facility] Name Value Range Interpretation Code Description Data Rosa rce(s) Supporting Document(s) C-REACTIVE PROT 3.70 mg/dL 0.00-0.49 [facility] ID Date Data Source [id number] 05/28/2020 06:17:00 AM EDT [facility] Name Value Range Interpretation Code Description Data Rosa rce(s) Supporting Document(s) GLU 179 mg/dL 70-110 [facility] Patients taking Sulfasalazine may have f alsely depressedGlucose levels. Patients taking Sulfapyridine may havefalsely elevated Glucose levels. Patients should be drawnfor Glucose before the initial administration of eitherdrug. BUN 21 mg/dL 7-23 [facility] CRE 0.956 mg/dL 0.500-1.300 [facility] GFR > 60 mL/min [facility] CHLORIDE 109 mmol/L 99-110 [facility] NA 144 mmol/L 136-147 [facility] POTASSIUM 4.0 mmol/L 3.5-5.1 [facility] TCO2 28 mmol/L 20-33 [facility] ANION GAP 11.0 10.0-20.0 [facility] CA 8.1 mg/dL 8.3-10.7 [facility] ALKALINE PHOS 149 U/L 45-117 [facility] TP 5.2 g/dL 6.0-7.8 [facility] ALB 2.4 g/dL 3.5-5.0 [facility] ESRD Dialysis patient Albumin reference range: 2.9-4.4 g/dL GL 2.8 g/dL 2.3-3.5 [facility] A/G 0.9 1.0-2.5 [facility] T. BILIRUBIN 0.3 mg/dL 0.1-1.1 [facility] [place] Total Bilirubin is n ot recommended forpatients undergoing treatment with eltrombopag (Promacta)due to the potential for falsely elevated results. ALTI 30 U/L 6-54 [facility] Patients taking Sulfasalazine and/or Sul fapyridine may havefalsely depressed ALT levels. Patients should be drawn forALT before the initial administration of either drug. AST 26 U/L 6-38 [facility] Patients taking Sulfasalazine and/or Sul fapyridine may havefalsely depressed AST levels. Patients should be drawn forAST before the initial administration of either drug. ID Date Data Source [id number] 05/28/2020 05:00:00 AM EDT [facility] Name Value Range Interpretation Code Description Data Rosa rce(s) Supporting Document(s) WBC 13.52 x10E3/uL 4.0-10.5 [facility] RBC 2.86 x10E6/uL 4.20-5.40 [facility] Hemoglobin 8.7 g/dL 12.0-16.0 [facility] Hematocrit 26.5 % 37.0-47.0 [facility] MCV 92.7 fL 81.0-99.0 [facility] MCH 30.4 pg 27.0-31.0 [facility] MCHC 32.8 g/dL 32.7-35.6 [facility] RDW 15.8 % 11.5-14.0 [facility] Platelet count 157 x10E3/uL 150-450 [facility] ital MPV 9.8 fl 6.9-9.5 [facility] Neutrophils 84.8 % 34-64 [facility] Lymphocytes 5.8 % 25-45 [facility] Monocytes 6.9 % 1.7-10.6 [facility] Eosinophils 0.8 % 0.4-7.0 [facility] Basophils 0.1 % 0.1-2.0 [facility] Imm. Gran. 1.6 % 0.1-2.0 [facility] Abs. Neutro. 11.46 x10E3/uL 1.2-7.6 [facility] Abs. Lymph. 0.79 x10E3/uL 1.0-3.5 [facility] Abs. [place]. 0.93 x10E3/uL 0.1-1.0 [facility] Abs. Eosin. 0.11 x10E3/uL 0.1-0.7 [facility] Abs. Baso. 0.02 x10E3/uL 0.0-0.1 [facility] Abs. Imm. Gran. 0.21 x10E3/uL 0.0-0.1 [facility] ANRBC% 0.1 % 0 [facility] ID Date Data Source [id number] 05/27/2020 09:58:00 PM EDT [facility] Name Value Range Interpretation Code Description Data Rosa rce(s) Supporting Document(s) FGLU 249 mg/dL 70-110 [facility] ID Date Data Source [id number] 05/27/2020 01:53:00 PM EDT [address] [id number] NOTEPATIENT NAME: ELA PONCE PHYSICIAN: MICHAEL WANG MDAUTHOR: Selma Caballero. DATE: 05/18/20 MR#: [id number] NOTE DATE: 05/27/20 RM#: [id number] TIME: 1356 : 45SubjectiveEvents Since Last EntryPatient seen and examined today. Chart reviewed. Patient was having somediarrhea last night but received cathartics yesterday. She has only had 2 BMsso far today. She feels fine otherwise. No other complaints. B vitaminswithin normal limits. Hemoglobin improved. No new development. Awaiting [facility]. Discussed plan of care with son at the patient's request.Review of SystemsSystems reviewed and negative Constitutional, Integumentary, Eyes, ENT,Respiratory, Cardiovascular, , Musculoskeletal, Aldo, Endocrine, Neurology,Psych, Allergy/ImmunologyGastrointestinalReports: diarrhea (Improved).ObjectiveVital SignsVital Signs-24 HRS16 05/26366262 7496 2225 0600Temp 98.3 98.6Pulse 90 89 90Resp 16 16B/P 164/75 164/75 160/88B/P MeanPulse Ox 95 94O2 Delivery Nasal cannula Nasal cannula Nasal cannulaO2 Flow Rate 3L 2 [id number] 3239 0842 0842TempPulse 96 96RespB/P 149/72 149/72 149/72B/P MeanPulse OxO2 Delivery Nasal cannulaO2 Flow Rate 2 RATCXZGjT7Pnrnot/OutputIntake/Output Summary 24 hours05/26 1900 05/27 0700Intake Total [...] Status mood neutral, no hallucinationsResultsLaboratory DataRecent Labs-24 hours05/26834 1197 7992 4827ChemistrySodium (136 - 147 mmol/L) 142Potassium (3.5 - [...] x10E3/uL) 0.02Nucleated RBC % (auto) (0 %) 004/604745SfxmvsbydFtayhhl B12 (193 - 986 pg/mL) 677.0Folic Acid [...] essential hypertension Qualified Code: I10 - Essential(primary) qqfomqisdrhs02. CKD (chronic kidney disease)Status Dshtoub47. DiabetesStatus Jcyyirs92. AnxietyStatus Acute13. PVD (peripheral vascular disease)Status Ntuckdx07. DebilityStatus Ytqiydc37. HypoalbuminemiaStatus Jmrwegm55. Polysubstance abuseStatus Ujxzchi29. HyperglycemiaStatus Acute18. T1-T2 SUBACUTE FRACTUREStatu s Acute19. [...] essential hypertension Qualified Code: I10 - Essential(primary) uhpccwbijopw76. CKD (chronic kidney disease)Status ChronicA&PStable continue to [...] chronic steroid useTime spent 35 minutesDis[facility].Resuscitation status Full codePlan discussed with patient, sonCase discussed with catalytic case operator, nursing staffDATE SIGNED: 05/27/20 Electronically SignedTIME SIGNED: 8709 CR FAJARDO Name Value Range Interpretation Code Description Data Rosa rce(s) Supporting Document(s) ID Date Data Source [id number] 05/28/2020 07:03:00 AM EDT [facility] Name Value Range Interpretation Code Description Data Rosa rce(s) Supporting Document(s) FGLU 213 mg/dL 70-110 [facility] ID Date Data Source [id number] 05/27/2020 09:56:00 AM EDT [facility] Name Value Range Interpretation Code Description Data Rosa rce(s) Supporting Document(s) FOLATE 20.9 ng/mL 3.1-17.5 [facility] ID Date Data Source [id number] 05/27/2020 09:56:00 AM EDT [facility] Name Value Range Interpretation Code Description Data Rosa rce(s) Supporting Document(s) VITAMIN B12 677.0 pg/mL 193-986 [facility] ID Date Data Source [id number] 05/27/2020 07:26:00 AM EDT [facility] Name Value Range Interpretation Code Description Data Rosa rce(s) Supporting Document(s) WBC 12.20 x10E3/uL 4.0-10.5 [facility] RBC 2.96 x10E6/uL 4.20-5.40 [facility] Hemoglobin 9.0 g/dL 12.0-16.0 [facility] Hematocrit 26.9 % 37.0-47.0 [facility] MCV 90.9 fL 81.0-99.0 [facility] MCH 30.4 pg 27.0-31.0 [facility] MCHC 33.5 g/dL 32.7-35.6 [facility] RDW 15.6 % 11.5-14.0 [facility] Platelet count 153 x10E3/uL 150-450 [facility] MPV 9.8 fl 6.9-9.5 [facility] Neutrophils 85.1 % 34-64 [facility] Lymphocytes 5.9 % 25-45 [facility] Monocytes 6.6 % 1.7-10.6 [facility] Eosinophils 0.8 % 0.4-7.0 [facility] Basophils 0.2 % 0.1-2.0 [facility] Imm. Gran. 1.4 % 0.1-2.0 [facility] Abs. Neutro. 10.39 x10E3/uL 1.2-7.6 [facility] Abs. Lymph. 0.72 x10E3/uL 1.0-3.5 [facility] Abs. [place]. 0.80 x10E3/uL 0.1-1.0 [facility] Abs. Eosin. 0.10 x10E3/uL 0.1-0.7 [facility] Abs. Baso. 0.02 x10E3/uL 0.0-0.1 [facility] Abs. Imm. Gran. 0.17 x10E3/uL 0.0-0.1 [facility] ANRBC% 0 % 0 [facility] ID Date Data Source [id number] 05/27/2020 07:23:00 AM EDT [facility] Name Value Range Interpretation Code Description Data Rosa rce(s) Supporting Document(s) C-REACTIVE PROT 5.35 mg/dL 0.00-0.49 [facility] ID Date Data Source [id number] 05/27/2020 07:23:00 AM EDT [facility] Name Value Range Interpretation Code Description Data Rosa rce(s) Supporting Document(s) MAGNESIUM 2.1 mg/dL 1.6-2.6 [facility] ID Date Data Source [id number] 05/27/2020 07:23:00 AM EDT [facility] Name Value Range Interpretation Code Description Data Rosa rce(s) Supporting Document(s) GLU 170 mg/dL 70-110 [facility] Patients taking Sulfasalazine may have f alsely depressedGlucose levels. Patients taking Sulfapyridine may havefalsely elevated Glucose levels. Patients should be drawnfor Glucose before the initial administration of eitherdrug. BUN 19 mg/dL 7-23 [facility] CRE 0.826 mg/dL 0.500-1.300 [facility] GFR > 60 mL/min [facility] CHLORIDE 106 mmol/L 99-110 [facility] NA 142 mmol/L 136-147 [facility] POTASSIUM 3.7 mmol/L 3.5-5.1 [facility] TCO2 28 mmol/L 20-33 [facility] ANION GAP 11.7 10.0-20.0 [facility] CA 8.5 mg/dL 8.3-10.7 [facility] ALKALINE PHOS 141 U/L 45-117 [facility] TP 5.5 g/dL 6.0-7.8 [facility] ALB 2.4 g/dL 3.5-5.0 [facility] ESRD Dialysis patient Albumin reference range: 2.9-4.4 g/dL GL 3.1 g/dL 2.3-3.5 [facility] A/G 0.8 1.0-2.5 [facility] T. BILIRUBIN 0.5 mg/dL 0.1-1.1 [facility] [place] Total Bilirubin is n ot recommended forpatients undergoing treatment with eltrombopag (Promacta)due to the potential for falsely elevated results. ALTI 33 U/L 6-54 [facility] Patients taking Sulfasalazine and/or Sul fapyridine may havefalsely depressed ALT levels. Patients should be drawn forALT before the initial administration of either drug. AST 29 U/L 6-38 [facility] Patients taking Sulfasalazine and/or Sul fapyridine may havefalsely depressed AST levels. Patients should be drawn forAST before the initial administration of either drug. ID Date Data Source [id number] 05/27/2020 07:35:00 AM EDT [facility] Name Value Range Interpretation Code Description Data Rosa rce(s) Supporting Document(s) FGLU 164 mg/dL 70-110 [facility] ID Date Data Source [id number] 05/27/2020 08:30:00 AM EDT [facility] Name Value Range Interpretation Code Description Data Rosa rce(s) Supporting Document(s) FGLU 253 mg/dL 70-110 [facility] ID Date Data Source [id number] 05/26/2020 07:38:00 PM EDT [facility] Name Value Range Interpretation Code Description Data Rosa rce(s) Supporting Document(s) FGLU 107 mg/dL 70-110 [facility] ID Date Data Source [id number] 05/26/2020 02:50:00 PM EDT [facility] Name Value Range Interpretation Code Description Data Rosa rce(s) Supporting Document(s) FGLU 210 mg/dL 70-110 [facility] ID Date Data Source [id number] 05/26/2020 10:58:00 AM EDT [address] [id number] NOTEPATIENT NAME: ELA PONCE PHYSICIAN: MICHAEL WANG MDAUTHOR: Selma Caballero. DATE: 05/18/20 MR#: [id number] NOTE DATE: 05/26/20 RM#: [id number] TIME: 1112 : 45SubjectiveEvents Since Last EntryPatient seen and examined today. Chart reviewed. [facility]- term rehab and antibiotic [...] Musculoskeletal, Aldo, Endocrine,Neurology, Psych, Allergy/ImmunologyObjectiveVital SignsVital Signs-24 HRS05/25788759 4327 1800 2027 2102Temp 99.5 97.6 98.0Pulse 94 86 95 87 85Resp 15 16 17B/P 172/69 168/69 149/71 163/76 163/73B/P MeanPulse Ox 96 96 97O2 Delivery Nasal cannula Nasal cannula Nasal cannulaO2 Flow Rate 1L 3L [id number]/[id number] 2243 0521 0908 0908Temp 97.9 97.7Pulse 73 79 79Resp 18 17B/P 163/78 161/77 161/77 161/77B/P MeanPulse Ox 97 94O2 Delivery Nasal cannula Nasal cannula Nasal cannulaO2 Flow Rate 2 2 4OuK21205/26674500 0953Temp 98.0Pulse 79 86Resp 20B/P 161/77 164/78B/P MeanPulse Ox 97O2 Delivery Nasal cannulaO2 Flow Rate 4YCiV9Vvygnp/OutputIntake/Output Summary 24 hours05/25 1900 05/26 0700Intake Total 2300 240Output TotalBalance [...] Status mood neutral, no hallucinationsResultsLaboratory DataRecent Labs-24 hours05/25115350 9148 1755 2022ChemistryPOC Glucose (70 - 110 mg/dL) 175 H 162 H 166 HHematologyHgb (12.0 - 16.0 g/dL) 8.9 LHct (37.0 - 47.0 %) 26.3 L05/26157311 0538ChemistrySodium (136 - 147 mmol/L) 144Potassium (3.5 [...] essential hypertension Qualified Code: I10 - Essential(primary) riiacxujjaer35. CKD (chronic kidney disease)Status ChronicA&PStable continue to [...] chronic steroid useTime spent 30 minutesDischarge [facility].Resuscitation status Full codePlan discussed with patientCase discussed with catalytic case operator, nursing staffDATE SIGNED: 05/26/20 Electronically SignedTIME SIGNED: 1112 CR TASHA FAJARDO Name Value Range Interpretation Code Description Data Rosa rce(s) Supporting Document(s) ID Date Data Source [id number] 05/26/2020 07:13:00 AM EDT [facility] Name Value Range Interpretation Code Description Data Rosa rce(s) Supporting Document(s) FGLU 127 mg/dL 70-110 [facility] ID Date Data Source [id number] 05/26/2020 06:31:00 AM EDT [facility] Name Value Range Interpretation Code Description Data Rosa rce(s) Supporting Document(s) WBC 11.71 x10E3/uL 4.0-10.5 [facility] RBC 2.74 x10E6/uL 4.20-5.40 [facility] Hemoglobin 8.3 g/dL 12.0-16.0 [facility] Hematocrit 24.8 % 37.0-47.0 [facility] MCV 90.5 fL 81.0-99.0 [facility] MCH 30.3 pg 27.0-31.0 [facility] MCHC 33.5 g/dL 32.7-35.6 [facility] RDW 15.7 % 11.5-14.0 [facility] Platelet count 142 x10E3/uL 150-450 L [facility] ital MPV 9.4 fl 6.9-9.5 [facility] Neutrophils 81.0 % 34-64 [facility] Lymphocytes 8.5 % 25-45 [facility] Monocytes 7.8 % 1.7-10.6 [facility] Eosinophils 1.1 % 0.4-7.0 [facility] Basophils 0.2 % 0.1-2.0 [facility] Imm. Gran. 1.4 % 0.1-2.0 [facility] Abs. Neutro. 9.50 x10E3/uL 1.2-7.6 [facility] Abs. Lymph. 0.99 x10E3/uL 1.0-3.5 [facility] Abs. [place]. 0.91 x10E3/uL 0.1-1.0 [facility] Abs. Eosin. 0.13 x10E3/uL 0.1-0.7 [facility] Abs. Baso. 0.02 x10E3/uL 0.0-0.1 [facility] Abs. Imm. Gran. 0.16 x10E3/uL 0.0-0.1 [facility] ANRBC% 0 % 0 [facility] ID Date Data Source [id number] 05/26/2020 06:28:00 AM EDT [facility] Value Range Interpretation Code Description Data Rosa rce(s) Supporting Document(s) MAGNESIUM 1.9 mg/dL 1.6-2.6 [facility] ID Date Data Source [id number] 05/26/2020 06:28:00 AM EDT [facility] Name Value Range Interpretation Code Description Data Rosa rce(s) Supporting Document(s) GLU 116 mg/dL 70-110 H [facility] Patients taking Sulfasalazine may have f alsely depressedGlucose levels. Patients taking Sulfapyridine may havefalsely elevated Glucose levels. Patients should be drawnfor Glucose before the initial administration of eitherdrug. BUN 17 mg/dL 7-23 [facility] CRE 0.891 mg/dL 0.500-1.300 [facility] GFR > 60 mL/min [facility] CHLORIDE 108 mmol/L 99-110 [facility] NA 144 mmol/L 136-147 [facility] POTASSIUM 3.7 mmol/L 3.5-5.1 [facility] TCO2 29 mmol/L 20-33 [facility] ANION GAP 10.7 10.0-20.0 [facility] CA 8.2 mg/dL 8.3-10.7 [facility] ALKALINE PHOS 129 U/L 45-117 H [facility] TP 5.1 g/dL 6.0-7.8 [facility] ALB 2.2 g/dL 3.5-5.0 [facility] ESRD Dialysis patient Albumin reference range: 2.9-4.4 g/dL GL 2.9 g/dL 2.3-3.5 [facility] A/G 0.8 1.0-2.5 [facility] T. BILIRUBIN 0.4 mg/dL 0.1-1.1 [facility] [place] Total Bilirubin is n ot recommended forpatients undergoing treatment with eltrombopag (Promacta)due to the potential for falsely elevated results. ALTI 28 U/L 6-54 [facility] Patients taking Sulfasalazine and/or Sul fapyridine may havefalsely depressed ALT levels. Patients should be drawn forALT before the initial administration of either drug. AST 25 U/L 6-38 [facility] Patients taking Sulfasalazine and/or Sul fapyridine may havefalsely depressed AST levels. Patients should be drawn forAST before the initial administration of either drug. ID Date Data Source [id number] 05/26/2020 06:28:00 AM EDT [facility] Name Value Range Interpretation Code Description Data Rosa rce(s) Supporting Document(s) C-REACTIVE PROT 3.59 mg/dL 0.00-0.49 H [facility] ID Date Data Source [id number] 05/25/2020 10:42:00 PM EDT [facility] Name Value Range Interpretation Code Description Data Rosa rce(s) Supporting Document(s) FGLU 166 mg/dL 70-110 H [facility] ID Date Data Source [id number] 05/25/2020 06:14:00 PM EDT [address] [id number] NOTEPATIENT NAME: ELA PONCE BATTENKEIKO PHYSICIAN: MICHAEL WANG, MDAUTHOR: Breezy GA, Zhang. DATE: 05/18/20 MR#: [id number] NOTE DATE: 05/25/20 RM#: [id number] TIME: 185 : 45SubjectiveCC/Hx Present IllnessBack painEvents Since Last [...] All otherreview of system negativeObjectiveVital SignsVital Signs-24 HRS05/24239409 5655 0202 0542 0823Temp 98.7 97.0 97.5Pulse 99 99 75 86 96Resp 18 18 18B/P 190/80 190/80 161/73 124/71 142/100B/P MeanPulse Ox 96 97 95O2 Delivery Nasal cannula Nasal cannula Nasal cannulaO2 Flow Rate 1.5 1.5 1.9PjL60005/25233549 3903 1140 1339Temp 99.0 99.5Pulse 94 94 86Resp 16 15B/P 142/100 172/69 172/69 168/69B/P MeanPulse Ox 94 96O2 Delivery Nasal cannula Nasal cannulaO2 Flow Rate 3L 4LToG9Pvbssd/OutputIntake/Output Summary 24 hours05/240 05/25 0700Intake Total 920 600Output Total 900 [...] Status mood neutral, no hallucinationsResultsLaboratory DataRecent Labs-24 hours05/24801096 0519 0608 1755ChemistrySodium (136 - 147 mmol/L) 143Potassium [...] 11.71 HAbsolute Lymphs (auto) (1.0 - 3.5 1.59e51S4/uL)Absolute Monos (auto) (0.1 - 1.0 x10E3/uL) 1.03 [...] vertebral body fracture-Leukocytosis trending down. C-reactive protein xlhypnf-Lrosau-is blood cultures-Pain management.2. PneumoniaStatus AcuteA&PC-reactive protein improvingZosyn. [...] UTI (urinary tract infection)Status AcuteA&PTreated with Zosyn lw-Xgizlq-pw urine culture.5. HLD (hyperlipidemia)Status ChronicA&PContinue statin6. Spinal stenosisStatus ChronicA&PChronic history of spinal stenosis continue with pain management.7. DepressionStatus ChronicA&PContinue with duloxetine., BuSpar8. HypothyroidismStatus ChronicA&P-Continue with levothyroxine.9. HTN (hypertension)Status ChronicA&P-Continue with lisinopril and increase hydralazine 50 mg p.o. 3 times daily,Imdur p.o. 90md daily, added metoprolol 25 mg p.o. dailyblood pressure control-Monitor blood pressure.Hypertension type: essential hypertension Qualified Code: I10 - Essential(primary) uwdamtsupqdk25. CKD (chronic kidney disease)Status ChronicA&PHistory of CKD. SU at [facility].-Monitor renal function.11. DiabetesStatus ChronicA&PComplicated with hypoglycemia and hyperglycemiaLevemir 6 units daily, continue NovoLog via protocol, close monitoring, dvbscmyaqqutl89. AnxietyStatus AcuteA&Mendoza chronic benzodiazepines. Will continue.13. PVD (peripheral vascular disease)Status ChronicA&PHistory of stent placement.Continue with Plavix, statin-Continue to monitor.14. DebilityStatus ChronicA&P-Supportive care-Consider PT/OT when patient is more alert.15. HypoalbuminemiaStatus ChronicA&PEncourage p.o. intake. Nutrition supplementation.Ensure p.o. 3 times daily.16. Polysubstance abuseStatus ChronicA&PThiamine, folic acid, multivitamin, no signs of zkioodzjpl13. HypernatremiaStatus AcuteA&HGggdcinve99. HyperglycemiaStatus AcuteA&PSecondary to steroid, will be very cautious in increasing coverage due toepisode of hypoglycemia, taper ezhvhky29. T1-T2 SUBACUTE FRACTUREStatus AcuteA&PPT, OT, fall precaution, pain medication as rlhneja85. Anemia of chronic diseaseStatus AcuteA&PWorsening anemia, no signs of bleeding, transfuse 1 unit PRBC with appropriateresponse. Will monitor, further work-up as outpatientAdditional Qwcft17-lyap-yme female patient underlying medical history of COPD O2 dependent,spinal stenosis, depression, dyslipidemia, type 2 diabetes, nicotine addiction,anxiety, hypothyroidism, debility, CKD, peripheral vascular disease,hypoalbuminemia, polysubstance abuse, initially admitted to [facility] for right upper lobe pneumonia, sepsis, deconditioning with frequentfall, transferred given complains of back pain and worsening leukocytosisDVT prophylaxis Heparin subcuDisposition pending clinical improvement, potential transfer back [facility],further work-up as outpatientResuscitation status Full codePlan discussed with patient, sonCase discussed with catalytic case operator, nursing staffVTE ProphylaxisVTE Prophylaxis: Heparin subcu.DATE SIGNED: 05/25/20 Electronically SignedTIME SIGNED: 1850 SAAD FRIED MD Name Value Range Interpretation Code Description Data Rosa rce(s) Supporting Document(s) ID Date Data Source [id number] 05/25/2020 06:12:00 PM EDT [facility] COMMENTS TO LAB: post transfusion Name Value Range Interpretation Code Description Data Rosa rce(s) Supporting Document(s) Hemoglobin 8.9 g/dL 12.0-16.0 L [facility] Hematocrit 26.3 % 37.0-47.0 L [facility] ID Date Data Source [id number] 05/26/2020 02:29:00 AM EDT [facility] Name Value Range Interpretation Code Description Data Rosa rce(s) Supporting Document(s) FGLU 162 mg/dL 70-110 H [facility] ID Date Data Source [id number] 05/25/2020 07:14:00 PM EDT [facility] Name Value Range Interpretation Code Description Data Rosa rce(s) Supporting Document(s) FGLU 175 mg/dL 70-110 H [facility] ID Date Data Source [id number] 05/25/2020 10:01:00 AM EDT [facility] Name Value Range Interpretation Code Description Data Rosa rce(s) Supporting Document(s) BLOOD TYPE AB NEGATIVE N [facility] ID Date Data Source [id number] 05/25/2020 02:30:00 PM EDT [facility] Name Value Range Interpretation Code Description Data Rosa rce(s) Supporting Document(s) FGLU 143 mg/dL 70-110 [facility] ID Date Data Source [id number] 05/25/2020 05:56:00 AM EDT [facility] Name Value Range Interpretation Code Description Data Rosa rce(s) Supporting Document(s) C-REACTIVE PROT 2.86 mg/dL 0.00-0.49 [facility] ID Date Data Source [id number] 05/25/2020 05:56:00 AM EDT [facility] Name Value Range Interpretation Code Description Data Rosa rce(s) Supporting Document(s) MAGNESIUM 2.0 mg/dL 1.6-2.6 N [facility] ID Date Data Source [id number] 05/25/2020 05:56:00 AM EDT [facility] Name Value Range Interpretation Code Description Data Rosa rce(s) Supporting Document(s) GLU 105 mg/dL 70-110 [facility] Patients taking Sulfasalazine may have f alsely depressedGlucose levels. Patients taking Sulfapyridine may havefalsely elevated Glucose levels. Patients should be drawnfor Glucose before the initial administration of eitherdrug. BUN 19 mg/dL 7-23 [facility] CRE 0.871 mg/dL 0.500-1.300 [facility] GFR > 60 mL/min [facility] CHLORIDE 111 mmol/L 99-110 H [facility] NA 143 mmol/L 136-147 [facility] POTASSIUM 3.9 mmol/L 3.5-5.1 [facility] TCO2 29 mmol/L 20-33 [facility] ANION GAP 6.9 10.0-20.0 L [facility] CA 8.1 mg/dL 8.3-10.7 [facility] ALKALINE PHOS 134 U/L 45-117 H [facility] TP 5.2 g/dL 6.0-7.8 [facility] ALB 2.4 g/dL 3.5-5.0 [facility] ESRD Dialysis patient Albumin reference range: 2.9-4.4 g/dL GL 2.8 g/dL 2.3-3.5 [facility] A/G 0.9 1.0-2.5 [facility] T. BILIRUBIN 0.4 mg/dL 0.1-1.1 [facility] [place] Total Bilirubin is n ot recommended forpatients undergoing treatment with eltrombopag (Promacta)due to the potential for falsely elevated results. ALTI 34 U/L 6-54 [facility] Patients taking Sulfasalazine and/or Sul fapyridine may havefalsely depressed ALT levels. Patients should be drawn forALT before the initial administration of either drug. AST 28 U/L 6-38 [facility] Patients taking Sulfasalazine and/or Sul fapyridine may havefalsely depressed AST levels. Patients should be drawn forAST before the initial administration of either drug. ID Date Data Source [id number] 05/25/2020 05:47:00 AM EDT [facility] Name Value Range Interpretation Code Description Data Rosa rce(s) Supporting Document(s) WBC 14.10 x10E3/uL 4.0-10.5 [facility] RBC 2.41 x10E6/uL 4.20-5.40 [facility] Hemoglobin 7.4 g/dL 12.0-16.0 [facility] Hematocrit 22.4 % 37.0-47.0 [facility] MCV 92.9 fL 81.0-99.0 [facility] MCH 30.7 pg 27.0-31.0 [facility] MCHC 33.0 g/dL 32.7-35.6 [facility] RDW 15.1 % 11.5-14.0 [facility] Platelet count 150 x10E3/uL 150-450 [facility] ital MPV 9.7 fl 6.9-9.5 H [facility] Neutrophils 83.1 % 34-64 H [facility] Lymphocytes 7.2 % 25-45 [facility] Monocytes 7.3 % 1.7-10.6 [facility] Eosinophils 0.9 % 0.4-7.0 [facility] Basophils 0.2 % 0.1-2.0 [facility] Imm. Gran. 1.3 % 0.1-2.0 N [facility] Abs. Neutro. 11.71 x10E3/uL 1.2-7.6 H [facility] Abs. Lymph. 1.02 x10E3/uL 1.0-3.5 N [facility] Abs. [place]. 1.03 x10E3/uL 0.1-1.0 [facility] Abs. Eosin. 0.13 x10E3/uL 0.1-0.7 [facility] Abs. Baso. 0.03 x10E3/uL 0.0-0.1 [facility] Abs. Imm. Gran. 0.18 x10E3/uL 0.0-0.1 [facility] ANRBC% 0 % 0 N [facility] ID Date Data Source [id number] 05/29/2020 11:59:00 PM EDT [facility] : N *Clinically Significant Acut e Blood Loss N *Hgb < or = to 7.0g/dL or Hct < or = to 21% N *Hgb < 8.0g/dL or Hct < 24% and PT Hemodynamically Unstable N *Hgb < 8.0 for Anemia and an Acute CA or Unstable Angina N *Hgb < 9.0g/dL with Chronic Transfusion Therapy Y *Maximum Blood Order Schedule NIrradiated? NCMV Negative? NTransfuse 1units over 4Have you ever had a blood transfusion? NHave you had a blood transfusion within the last 3 months? N Name Value Range Interpretation Code Description Data Rosa rce(s) Supporting Document(s) ANTIBODY ID ANTI D N [facility] ID Date Data Source [id number] 05/29/2020 12:00:00 AM EDT [facility] Name Value Range Interpretation Code Description Data Rosa rce(s) Supporting Document(s) [id number] TRANSFUSED PRODUCT: PACKED CELLS CO UNT: 1 [facility] ID Date Data Source [id number] 05/29/2020 11:59:00 PM EDT [facility] : N *Clinically Significant Acut e Blood Loss N *Hgb < or = to 7.0g/dL or Hct < or = to 21% N *Hgb < 8.0g/dL or Hct < 24% and PT Hemodynamically Unstable N *Hgb < 8.0 for Anemia and an Acute CA or Unstable Angina N *Hgb < 9.0g/dL with Chronic Transfusion Therapy Y *Maximum Blood Order Schedule NIrradiated? NCMV Negative? NTransfuse 1units over 4Have you ever had a blood transfusion? NHave you had a blood transfusion within the last 3 months? NC: NEGATIVEE: NEGATIVE Name Value Range Interpretation Code Description Data Rosa rce(s) Supporting Document(s) ID Date Data Source [id number] 05/29/2020 11:59:00 PM EDT [facility] : N *Clinically Significant Acut e Blood Loss N *Hgb < or = to 7.0g/dL or Hct < or = to 21% N *Hgb < 8.0g/dL or Hct < 24% and PT Hemodynamically Unstable N *Hgb < 8.0 for Anemia and an Acute CA or Unstable Angina N *Hgb < 9.0g/dL with Chronic Transfusion Therapy Y *Maximum Blood Order Schedule NIrradiated? NCMV Negative? NTransfuse 1units over 4Have you ever had a blood transfusion? NHave you had a blood transfusion within the last 3 months? NUNIT NUMBER: [id number]: YPRODUCT: LEUKO REDUCED RED BLOOD CELLSSOURCE: [facility] TYPE: A NEGATIVEVOLUME: 309MLNOT AVAILABLE: YCROSSMATCH COMPONENTS:00UNIT NUMBER: [id number]: YPRODUCT: LEUKO REDUCED RED BLOOD CELLSSOURCE: [facility] [facility] TYPE: A NEGATIVEVOLUME: 309MLCROSSMATCH COMPONENTS:00 Name Value Range Interpretation Code Description Data Rosa rce(s) Supporting Document(s) ID Date Data Source [id number] 05/29/2020 11:59:00 PM EDT [facility] : N *Clinically Significant Acut e Blood Loss N *Hgb < or = to 7.0g/dL or Hct < or = to 21% N *Hgb < 8.0g/dL or Hct < 24% and PT Hemodynamically Unstable N *Hgb < 8.0 for Anemia and an Acute CA or Unstable Angina N *Hgb < 9.0g/dL with Chronic Transfusion Therapy Y *Maximum Blood Order Schedule NIrradiated? NCMV Negative? NTransfuse 1units over 4Have you ever had a blood transfusion? NHave you had a blood transfusion within the last 3 months? NUNIT NUMBER: [id number]: YPRODUCT: LEUKO REDUCED RED BLOOD CELLSSOURCE: [facility] TYPE: A NEGATIVEVOLUME: 283MLNOT AVAILABLE: YCROSSMATCH COMPONENTS: Name Value Range Interpretation Code Description Data Rosa rce(s) Supporting Document(s) ISXM 0 [facility] IGGXM 0 [facility] ID Date Data Source [id number] 05/29/2020 11:59:00 PM EDT [facility] : N *Clinically Significant Acut e Blood Loss N *Hgb < or = to 7.0g/dL or Hct < or = to 21% N *Hgb < 8.0g/dL or Hct < 24% and PT Hemodynamically Unstable N *Hgb < 8.0 for Anemia and an Acute CA or Unstable Angina N *Hgb < 9.0g/dL with Chronic Transfusion Therapy Y *Maximum Blood Order Schedule NIrradiated? NCMV Negative? NTransfuse 1units over 4Have you ever had a blood transfusion? NHave you had a blood transfusion within the last 3 months? N Name Value Range Interpretation Code Description Data Rosa rce(s) Supporting Document(s) BLOOD TYPE AB NEGATIVE N [facility] ANTIBODY SCREEN POSITIVE N [facility] Date Data Source [id number] 05/25/2020 08:55:00 AM EDT [facility] Name Value Range Interpretation Code Description Data Rosa rce(s) Supporting Document(s) DATIgG NEGATIVE NEGATIVE N [facility] ID Date Data Source [id number] 05/25/2020 12:50:00 AM EDT [facility] Name Value Range Interpretation Code Description Data Rosa rce(s) Supporting Document(s) FGLU 250 mg/dL 70-110 H [facility] ID Date Data Source [id number] 05/24/2020 06:24:00 PM EDT [facility] Name Value Range Interpretation Code Description Data Rosa rce(s) Supporting Document(s) FGLU 107 mg/dL 70-110 N [facility] ID Date Data Source [id number] 05/24/2020 04:01:00 PM EDT [facility] [address] [id number] NOTEPATIENT NAME: COUTURE,ELA BATTENDING PHYSICIAN: MICHAEL WANG, MDAUTHOR: Breezy [place], Zhang. DATE: 05/18/20 MR#: [id number] NOTE DATE: 05/24/20 RM#: [id number] TIME: 1608 : 45SubjectiveCC/Hx Present IllnessBack painEvents Since Last EntryCurrently alert oriented x3. Very poor historian. On chronic oxygen. Patientcomfortable, reported chronic back pain. Following command, tolerating p.o.back to baseline. Denies chest pain. Afebrile. All other review of systemnegativeObjectiveVital SignsVital Signs-24 HRS05/23960163 3002 0200 0517Temp 98.1 98.0 97.8 98.1Pulse 100 94 94 92Resp 17 18 18 18B/P 166/76 166/76 164/76 168/79B/P MeanPulse Ox 99 99 97 97O2 Delivery Nasal cannula Nasal cannula Nasal cannula Nasal cannulaO2 Flow Rate 3L 3L 3L 1.1NxG69505/24646851 0425 0739 0844 1030Temp 98.1 98.4Pulse 87 93 103Resp 18 17B/P 168/79 169/75 169/75 162/77B/P MeanPulse Ox 99 94O2 Delivery Nasal cannula Nasal cannulaO2 Flow Rate 3L 1.8CBgY526/433108Famb 98.4Pulse 100Resp 17B/P 164/78B/P MeanPulse Ox 96O2 DeliveryO2 Flow VlipFrF2Oo take/OutputIntake/Output Summary 24 hours05/23 1900 04/14 0700Intake Total 1000 840Output Total 375 1400Balance [...] Status mood neutral, no hallucinationsResultsLaboratory DataRecent Labs-24 hours05/23846309 2065 0350 0607ChemistrySodium (136 - 147 mmol/L) 143Potassium (3.5 - [...] x10E3/uL) 0.01Nucleated RBC % (auto) (0 %) 004/036911UhfbojuykRNK Glucose (70 - 110 mg/dL) 228 HResults Reviewed labs reviewedAssessment/PlanProblem List1. Back painStatus AcuteA&PDegenerative disc disease, spinal stenosis, T1-T2 subacute fracturePatient complained of back pain.MRI appreciated with no evidence of discitis, likely worsening pain due tosubcu vertebral body fracture-Leukocytosis trending down. C-reactive protein qiwvjlw-Kfblte-mz blood cultures-Pain management.2. PneumoniaStatus AcuteA&PC-reactive protein improvingZosyn. [...] pyelonephritis on CT abdomen pelvis-Continue with Zosyn zc-Haqfhj-ya urine culture.5. HLD (hyperlipidemia)Status ChronicA&PContinue statin6. Spinal stenosisStatus ChronicA&PChronic history of spinal stenosis continue with pain management.7. DepressionStatus ChronicA&PContinue with duloxetine., BuSpar8. HypothyroidismStatus ChronicA&P-Continue with levothyroxine.9. HTN (hypertension)Status ChronicA&P-Continue with lisinopril and increase hydralazine 50 mg p.o. 3 times daily,Imdur p.o. 90md daily, added metoprolol 25 mg p.o. dailyblood pressure control-Monitor blood pressure.10. CKD (chronic kidney disease)Status ChronicA&PHistory of CKD. SU at [facility].-Monitor renal function.11. DiabetesStatus ChronicA&PComplicated with hypoglycemia and hyperglycemiaLevemir 6 units daily, continue NovoLog via protocol, close monitoring, mouwttusmdtzl31. AnxietyStatus AcuteA&Mendoza chronic benzodiazepines. Will continue.13. PVD (peripheral vascular disease)Status ChronicA&PHistory of stent placement.Continue with Plavix, statin-Continue to monitor.14. DebilityStatus ChronicA&P-Supportive care-Consider PT/OT when patient is more alert.15. HypoalbuminemiaStatus ChronicA&PEncourage p.o. intake. Nutrition supplementation.Ensure p.o. 3 times daily.16. Polysubstance abuseStatus ChronicA&PThiamine, folic acid, multivitamin, no signs of aasljhyzya17. HypernatremiaStatus AcuteA&ORmirvgpwy76. HyperglycemiaStatus AcuteA&PSecondary to steroid, will be very cautious in increasing coverage due toepisode of hypoglycemia, taper . T1-T2 SUBACUTE FRACTUREStatus AcuteA&PPT, OT, fall precaution, pain medication as orderedAdditional Tjccz67-ottj-ncl female patient underlying medical history of COPD O2 dependent,spinal stenosis, depression, dyslipidemia, type 2 diabetes, nicotine addiction,anxiety, hypothyroidism, debility, CKD, peripheral vascular disease,hypoalbuminemia, polysubstance abuse, initially admitted to [facility] for right upper lobe pneumonia, sepsis, deconditioning with frequentfall, transferred given complains of back pain and worsening leukocytosisDVT prophylaxis Heparin subcuDisposition pending clinical improvement, [place] [facility] [place] [facility]Res[facility] status Full codePlan discussed with patientCase discussed with catalytic case operator, nursing staffVTE ProphylaxisVTE Prophylaxis: Heparin subcu.DATE SIGNED: 05/24/20 Electronically SignedTIME SIGNED: 1608 SAAD FRIED MD Name Value Range Interpretation Code Description Data Rosa rce(s) Supporting Document(s) ID Date Data Source [id number] 05/24/2020 02:59:00 PM EDT [facility] Name Value Range Interpretation Code Description Data Rosa rce(s) Supporting Document(s) FGLU 228 mg/dL 70-110 H [facility] ID Date Data Source [id number] 05/24/2020 07:48:00 AM EDT [facility] Name Value Range Interpretation Code Description Data Rosa rce(s) Supporting Document(s) FGLU 93 mg/dL 70-110 N [facility] ID Date Data Source [id number] 05/24/2020 05:49:00 AM EDT [facility] Name Value Range Interpretation Code Description Data Rosa rce(s) Supporting Document(s) GLU 69 mg/dL 70-110 [facility] Patients taking Sulfasalazine may have f alsely depressedGlucose levels. Patients taking Sulfapyridine may havefalsely elevated Glucose levels. Patients should be drawnfor Glucose before the initial administration of eitherdrug. BUN 24 mg/dL 7-23 H [facility] CRE 0.995 mg/dL 0.500-1.300 [facility] GFR 58 mL/min [facility] CHLORIDE 112 mmol/L 99-110 H [facility] NA 143 mmol/L 136-147 [facility] POTASSIUM 3.9 mmol/L 3.5-5.1 [facility] TCO2 27 mmol/L 20-33 [facility] ANION GAP 7.9 10.0-20.0 [facility] CA 8.2 mg/dL 8.3-10.7 [facility] ALKALINE PHOS 139 U/L 45-117 H [facility] TP 5.7 g/dL 6.0-7.8 [facility] ALB 2.6 g/dL 3.5-5.0 [facility] ESRD Dialysis patient Albumin reference range: 2.9-4.4 g/dL GL 3.1 g/dL 2.3-3.5 [facility] A/G 0.8 1.0-2.5 [facility] T. BILIRUBIN 0.4 mg/dL 0.1-1.1 [facility] [employer] [facility] [place] Total Bilirubin is n ot recommended forpatients undergoing treatment with eltrombopag (Promacta)due to the potential for falsely elevated results. ALTI 36 U/L 6-54 [facility] Patients taking Sulfasalazine and/or Sul fapyridine may havefalsely depressed ALT levels. Patients should be drawn forALT before the initial administration of either drug. AST 32 U/L 6-38 [facility] Patients taking Sulfasalazine and/or Sul fapyridine may havefalsely depressed AST levels. Patients should be drawn forAST before the initial administration of either drug. ID Date Data Source [id number] 05/24/2020 05:49:00 AM EDT [facility] Name Value Range Interpretation Code Description Data Rosa rce(s) Supporting Document(s) C-REACTIVE PROT 0.90 mg/dL 0.00-0.49 [facility] ID Date Data Source [id number] 05/24/2020 05:49:00 AM EDT [facility] Name Value Range Interpretation Code Description Data Rosa rce(s) Supporting Document(s) MAGNESIUM 2.0 mg/dL 1.6-2.6 N [facility] ID Date Data Source [id number] 05/24/2020 05:16:00 AM EDT [facility] Name Value Range Interpretation Code Description Data Rosa rce(s) Supporting Document(s) WBC 17.89 x10E3/uL 4.0-10.5 [facility] RBC 2.71 x10E6/uL 4.20-5.40 [facility] Hemoglobin 8.1 g/dL 12.0-16.0 [facility] Hematocrit 25.1 % 37.0-47.0 [facility] MCV 92.6 fL 81.0-99.0 [facility] MCH 29.9 pg 27.0-31.0 [facility] MCHC 32.3 g/dL 32.7-35.6 [facility] RDW 15.1 % 11.5-14.0 [facility] Platelet count 164 x10E3/uL 150-450 [facility] MPV 9.9 fl 6.9-9.5 [facility] Neutrophils 83.5 % 34-64 [facility] Lymphocytes 7.4 % 25-45 [facility] Monocytes 6.4 % 1.7-10.6 [facility] Eosinophils 1.0 % 0.4-7.0 [facility] Basophils 0.1 % 0.1-2.0 [facility] Imm. Gran. 1.6 % 0.1-2.0 [facility] Abs. Neutro. 14.96 x10E3/uL 1.2-7.6 [facility] Abs. Lymph. 1.32 x10E3/uL 1.0-3.5 [facility] Abs. [place]. 1.15 x10E3/uL 0.1-1.0 [facility] Abs. Eosin. 0.17 x10E3/uL 0.1-0.7 [facility] Abs. Baso. 0.01 x10E3/uL 0.0-0.1 [facility] Abs. Imm. Gran. 0.28 x10E3/uL 0.0-0.1 [facility] ANRBC% 0 % 0 [facility] ID Date Data Source [id number] 05/24/2020 01:38:00 AM EDT [facility] Name Value Range Interpretation Code Description Data Rosa rce(s) Supporting Document(s) FGLU 68 mg/dL 70-110 [facility] ID Date Data Source [id number] 05/23/2020 08:05:00 PM EDT [place] [address] [id number] NOTEPATIENT NAME: ELA PONCE BATTENKEIKO PHYSICIAN: MICHAEL WANG MDAUTHOR: Breezy [place], Zhang. DATE: 05/18/20 MR#: [id number] NOTE DATE: 05/23/20 RM#: [id number] TIME: 2021 : 45SubjectiveCC/Hx Present IllnessBack painEvents Since Last EntryCurrently alert oriented x3. Very poor historian. On chronic oxygen. Patientcomfortable, reported chronic back pain. Following command, tolerating p.o.almost back to baseline. Denies chest pain. Afebrile. All other review ofsystem negativeObjectiveVital SignsVital Signs-24 HRS04/05/22083453 6696 0250 0524 0751Temp 98.9 98.0 98.1Pulse 95 84 89Resp 18 17 16B/P 160/90 183/80 210/90 178/64B/P MeanPulse Ox 97 96 97O2 Delivery Nasal cannula Nasal cannulaO2 Flow Rate 2 0AeB10205/23480093 5327 0942 1000 1341Temp 98.1 98.3Pulse 89 100 96Resp 17 17B/P 178/64 178/64 182/83 168/77B/P MeanPulse Ox 98 95O2 Delivery Nasal cannula Nasal cannula Nasal cannulaO2 Flow Rate 3L 2L 3WKeL238/648273Qizj 98.1Pulse 100Resp 17B/P 166/76B/P MeanPulse Ox 99O2 Delivery Nasal cannulaO2 Flow Rate 5FBkN1Zlollf/OutputIntake/Output Summary 24 hours12 1900 05/23 0700Intake Total 2130 500Output Total [...] subcuvertebral body fracture-Leukocytosis trending down. C-reactive protein rtagddh-Paacua-mn blood cultures-Pain management.2. PneumoniaStatus AcuteA&PC-reactive protein improvingZosyn. [...] pyelonephritis on CT abdomen pelvis-Continue with Zosyn qa-Plvofs-br urine culture.5. HLD (hyperlipidemia)Status ChronicA&PContinue statin6. Spinal stenosisStatus ChronicA&PChronic history of spinal stenosis continue with pain management.7. DepressionStatus ChronicA&PContinue with duloxetine., BuSpar8. HypothyroidismStatus ChronicA&PCheck TSH.-Continue with levothyroxine.9. HTN (hypertension)Status ChronicA&P-Continue with lisinopril and increase hydralazine 50 mg p.o. 3 times daily,Imdur p.o. 90md dailyblood pressure control-Monitor blood pressure.10. CKD (chronic kidney disease)Status ChronicA&PHistory of CKD. SU at [facility].-Monitor renal function.11. DiabetesStatus ChronicA&PComplicated with hypoglycemia and hyperglycemiaLevemir 8 units daily, continue NovoLog via protocol, close monitoring, chftebevolryg70. AnxietyStatus AcuteA&Mendoza chronic benzodiazepines. Will continue.13. PVD (peripheral vascular disease)Status ChronicA&PHistory of stent placement.Continue with Plavix, statin-Continue to monitor.14. DebilityStatus ChronicA&P-Supportive care-Consider PT/OT when patient is more alert.15. HypoalbuminemiaStatus ChronicA&PEncourage p.o. intake. Nutrition supplementation.Ensure p.o. 3 times daily.16. Polysubstance abuseStatus ChronicA&PThiamine, folic acid, multivitamin, Ativan as needed for nywhjwtbjf80. HypernatremiaStatus AcuteA&CYfhmmhydz77. HyperglycemiaStatus AcuteA&PSecondary to steroid, will be very cautious in increasing coverage due toepisode of hypoglycemia, taper geeooid15. T1-T2 SUBACUTE FRACTUREStatus AcuteA&PPT, OT, fall precaution, pain medication as orderedAdditional Sxmwj23-tbej-lwz female patient underlying medical history of COPD O2 dependent,spinal stenosis, depression, dyslipidemia, type 2 diabetes, nicotine addiction,anxiety, hypothyroidism, debility, CKD, peripheral vascular disease,hypoalbuminemia, polysubstance abuse, [facility], sepsis, deconditioning with frequentfall, transferred given complains of back pain and worsening leukocytosisDVT prophylaxis Heparin subcuDisposition pending clinical improvement, [place] [facility] [place] [facility] status Full codePlan discussed with patient, sonCase discussed with catalytic case operator, nursing staffVTE ProphylaxisVTE Prophylaxis: heparin SQDATE SIGNED: 05/23/20 Electronically SignedTIME SIGNED: 2021 SAAD FRIED MD Name Value Range Interpretation Code Description Data [facility] Document(s) ID Date Data Source [id number] 05/23/2020 11:37:00 PM EDT [facility] Name Value Range Interpretation Code Description Data Rosa rce(s) Supporting Document(s) FGLU 190 mg/dL 70-110 [facility] ID Date Data Source [id number] 05/24/2020 02:34:00 AM EDT [facility] Name Value Range Interpretation Code Description Data Rosa rce(s) Supporting Document(s) FGLU 304 mg/dL 70-110 [facility] ID Date Data Source [id number] 05/23/2020 08:21:00 AM EDT [place] [facility] Name Value Range Interpretation Code Description Data Rosa rce(s) Supporting Document(s) FGLU 271 mg/dL 70-110 [facility] ID Date Data Source [id number] 05/23/2020 05:59:00 AM EDT [facility] Name Value Range Interpretation Code Description Data Rosa rce(s) Supporting Document(s) C-REACTIVE PROT 1.72 mg/dL 0.00-0.49 [facility] ID Date Data Source [id number] 05/23/2020 05:59:00 AM EDT [facility] Name Value Range Interpretation Code Description Data Rosa rce(s) Supporting Document(s) MAGNESIUM 2.0 mg/dL 1.6-2.6 [facility] ID Date Data Source [id number] 05/23/2020 05:59:00 AM EDT [facility] Name Value Range Interpretation Code Description Data Rosa rce(s) Supporting Document(s) GLU 225 mg/dL 70-110 [facility] Patients taking Sulfasalazine may have f alsely depressedGlucose levels. Patients taking Sulfapyridine may havefalsely elevated Glucose levels. Patients should be drawnfor Glucose before the initial administration of eitherdrug. BUN 28 mg/dL 7-23 [facility] CRE 1.040 mg/dL 0.500-1.300 [facility] GFR 55 mL/min [facility] CHLORIDE 111 mmol/L 99-110 [facility] NA 141 mmol/L 136-147 [facility] POTASSIUM 4.3 mmol/L 3.5-5.1 [facility] TCO2 28 mmol/L 20-33 [facility] ANION GAP 6.3 10.0-20.0 [facility] CA 8.2 mg/dL 8.3-10.7 [facility] ALKALINE PHOS 140 U/L 45-117 [facility] TP 5.4 g/dL 6.0-7.8 [facility] ALB 2.5 g/dL 3.5-5.0 [facility] ESRD Dialysis patient Albumin reference range: 2.9-4.4 g/dL GL 2.9 g/dL 2.3-3.5 [facility] A/G 0.9 1.0-2.5 [facility] T. BILIRUBIN 0.5 mg/dL 0.1-1.1 [facility] [place] Total Bilirubin is n ot recommended forpatients undergoing treatment with eltrombopag (Promacta)due to the potential for falsely elevated results. ALTI 36 U/L 6-54 [facility] Patients taking Sulfasalazine and/or Sul fapyridine may havefalsely depressed ALT levels. Patients should be drawn forALT before the initial administration of either drug. AST 25 U/L 6-38 [facility] Patients taking Sulfasalazine and/or Sul fapyridine may havefalsely depressed AST levels. Patients should be drawn forAST before the initial administration of either drug. ID Date Data Source [id number] 05/23/2020 05:14:00 AM EDT [facility] Name Value Range Interpretation Code Description Data Rosa rce(s) Supporting Document(s) WBC 12.48 x10E3/uL 4.0-10.5 [facility] RBC 2.65 x10E6/uL 4.20-5.40 [facility] Hemoglobin 8.0 g/dL 12.0-16.0 [facility] Hematocrit 24.7 % 37.0-47.0 [facility] MCV 93.2 fL 81.0-99.0 [facility] MCH 30.2 pg 27.0-31.0 [facility] MCHC 32.4 g/dL 32.7-35.6 [facility] RDW 14.8 % 11.5-14.0 [facility] Platelet count 146 x10E3/uL 150-450 [facility] ital MPV 10.1 fl 6.9-9.5 [facility] Neutrophils 88.5 % 34-64 [facility] Lymphocytes 4.8 % 25-45 [facility] Monocytes 4.6 % 1.7-10.6 [facility] Eosinophils 0.2 % 0.4-7.0 [facility] Basophils 0.1 % 0.1-2.0 [facility] Imm. Gran. 1.8 % 0.1-2.0 [facility] Abs. Neutro. 11.04 x10E3/uL 1.2-7.6 [facility] Abs. Lymph. 0.60 x10E3/uL 1.0-3.5 [facility] Abs. [place]. 0.58 x10E3/uL 0.1-1.0 [facility] Abs. Eosin. 0.02 x10E3/uL 0.1-0.7 [facility] [place] [facility] Abs. Baso. 0.01 x10E3/uL 0.0-0.1 [facility] Abs. Imm. Gran. 0.23 x10E3/uL 0.0-0.1 [facility] [place] [facility] ANRBC% 0 % 0 [facility] ID Date Data Source [id number] 05/22/2020 04:34:00 PM EDT [facility] Name Value Range Interpretation Code Description Data Rosa rce(s) Supporting Document(s) FGLU 348 mg/dL 70-110 [facility] ID Date Data Source [id number] 05/22/2020 02:57:00 PM EDT [facility] [address] [id number] NOTEPATIENT NAME: ELA PONCE PHYSICIAN: MICHAEL WANG MDAUTHOR: [place]reezy [place], Zhang. DATE: 05/18/20 MR#: [id number] NOTE DATE: 05/22/20 RM#: [id number] TIME: 1531 : 45SubjectiveCC/Hx Present IllnessBack painEvents Since Last EntryCurrently alert oriented x3. Very poor historian. On chronic oxygen. Patientcomfortable, reported chronic back pain. Following command, tolerating p.o.almost back to baseline. Denies chest pain. Afebrile. All other review ofsystem negativeObjectiveVital SignsVital Signs-24 HRS05/21710 2130 2200 0128Temp 99.3 99.0 98.7Pulse 95 95 91Resp 16 16 16B/P 190/88 144/77 147/63B/P MeanPulse Ox 100 98 95O2 Delivery Nasal cannula Nasal cannula Nasal cannula Nasal cannulaO2 Flow Rate 3L 2 2L 2OgN13105/22209283 1208 0835 1000 1426Temp 98.6 97.3Pulse 95 98Resp 16 17B/P 165/75 163/83 163/83 164/80B/P MeanPulse Ox 96 95O2 Delivery Nasal cannula Nasal cannula Nasal cannulaO2 Flow Rate 2 2L 9KRfN2Omftlk/OutputIntake/Output Summary 24 hours05/21 1900 05/22 0700Intake Total 3510Output Total 600Balance 2910Intake, IV [...] tearPsych/Mental Status mood n eutralResultsLaboratory DataRecent Labs-24 hours05/21502 1659 7019ChemistrySodium (136 - 147 mmol/L) 145Potassium (3.5 - [...] subcuvertebral body fracture-Leukocytosis trending down. C-reactive protein zyxwppd-Ksymlb-kz blood cultures-Pain management.2. PneumoniaStatus AcuteA&PC-reactive protein improvingZosyn. [...] pyelonephritis on CT abdomen pelvis-Continue with Zosyn sk-Huvjgy-hr urine culture.5. HLD (hyperlipidemia)Status ChronicA&PContinue statin6. Spinal stenosisStatus ChronicA&PChronic history of spinal stenosis continue with pain management.7. DepressionStatus ChronicA&PContinue with duloxetine., BuSpar8. HypothyroidismStatus ChronicA&PCheck TSH.-Continue with levothyroxine.9. HTN (hypertension)Status ChronicA&P-Continue with lisinopril and increase hydralazine 50 mg p.o. 3 times daily,restarting NorvascImdur 30 mg p.o. daily added for better blood pressure control-Monitor blood pressure.10. CKD (chronic kidney disease)Status ChronicA&PHistory of CKD. SU at [facility].-Monitor renal function.11. DiabetesStatus ChronicA&PComplicated with hypoglycemia and hyperglycemiaLevemir 8 units daily, continue NovoLog via protocol, close monitoring, qpjvnvbpifiln58. AnxietyStatus AcuteA&Mendoza chronic benzodiazepines. Will continue.13. PVD (peripheral vascular disease)Status ChronicA&PHistory of stent placement.Continue with Plavix, statin-Continue to monitor.14. DebilityStatus ChronicA&P-Supportive care-Consider PT/OT when patient is more alert.15. HypoalbuminemiaStatus ChronicA&PEncourage p.o. intake. Nutrition supplementation.Ensure p.o. 3 times daily.16. Polysubstance abuseStatus ChronicA&PThiamine, folic acid, multivitamin, Ativan as needed for gjnqkwhvoj21. HypernatremiaStatus AcuteA&JXdffqmkkz27. HyperglycemiaStatus AcuteA&PSecondary to steroid, will be very cautious in increasing coverage due toepisode of hypoglycemia, taper steroidAdditional Hegak59-icrr-fek female patient underlying medical history of COPD O2 dependent,spinal stenosis, depression, dyslipidemia, type 2 diabetes, nicotine addiction,anxiety, hypothyro idism, debility, CKD, peripheral vascular disease,hypoalbuminemia, polysubstance abuse, [facility], sepsis, deconditioning with frequentfall, transferred given complains of back pain and worsening leukocytosisDVT prophylaxis Heparin subcuDisposition pending clinical improvement, [facility] [place] [facility] [place] [facility]Resuscitation status Full codePlan discussed with patientCase discussed with catalytic case operator, nursing staffVTE ProphylaxisVTE Prophylaxis: Heparin subcu.DATE SIGNED: 05/22/20 Electronically SignedTIME SIGNED: 1531 SAAD FRIED MD Name Value Range Interpretation Code Description Data Rosa rce(s) Supporting Document(s) ID Date Data Source [id number] 05/22/2020 04:14:00 PM EDT [facility] Name Value Range Interpretation Code Description Data Rosa rce(s) Supporting Document(s) VANCOMYCIN TROU 22.1 ug/mL 5-10 [facility] FOR SKIN AND SKIN STRUCTURE INFECTIONS, GUIDELINES RECOMMENDA TROUGH OF 10. FOR SEVERE INFECTIONS, (PNEUMONIA, OSTEOMYELITIS, MENINGITISAND BACTEREMIA) A TARGET TROUGH OF 15 TO 20 IS RECOMMENDED. ID Date Data Source [id number] 05/22/2020 02:26:00 PM EDT [facility] Exam Number: [id number] OF EXAMINATIO N: 05/22/2020 9:00 EDTMRI L-SPINE W/O FOL BY W/ CONTHISTORY: TendernessMulti-echo, multiplanar imaging of the lumbar spine was obtainedwithout and with contrast .FINDINGS:Decreased signal intensity on T2-weighted images is present in thelumbar intervertebral discs. The L3-4 through L5-S1 intervertebraldiscs are decreased in height. These findings are consistent with discdegeneration.I there is no disc bulge or herniation at the L1-2 level. The L2bgxxle exit the neural foramina without compression.A diffuse [...] rce(s) Supporting Document(s) ID Date Data Source [id number] 05/22/2020 12:41:00 PM EDT [facility] Progress Note GeneralEncounter:Chart re viewed. Patient [...] normal capillary refill, no calf tendernessNeurologic/Psychiatric alert, cell reliner II- XII nml as tested, normal mood/affect, no motor/sensory deficits, oriented x 3Skin normal color, warm/dryLymphatic no adenopathy Other:Laboratory Tests 05/15 0617 Chemistry Sodium (136 - 145 mmol/L) 139 [...] PO Vital Signs 05/14 05/14 05/15 05/15 05/15 1818 2300 0300 0645 1030 Temp 98.9 98.4 98.5 98.2 97.0 Pulse 97 96 94 90 101 Resp 20 24 20 16 16 B/P 123/71 130/72 136/67 182/82 152/87 B/P Mean Pulse Ox 99 98 100 94 99 O2 Delivery O2 Flow Rate FiO2 05/15 1445 Temp 99.4 Pulse 97 Resp 22 [...] rce(s) Supporting Document(s) ID Date Data Source [id number] 05/22/2020 11:35:00 AM EDT [facility] Exam Number: [id number] OF EXAMINATIO N: 05/22/2020 9:00 EDTMRI T-SPINE [...] Name Value Range Interpretation Code Description Data [facility] Document([facility] ID Date Data Source [id number] 05/23/2020 12:09:00 AM EDT [place] [facility] Name Value Range Interpretation Code Description Data Rosa rce(s) Supporting Document(s) FGLU 325 mg/dL 70-110 [facility] ID Date Data Source [id number] 05/22/2020 07:22:00 AM EDT [facility] Name Value Range Interpretation Code Description Data Rosa rce(s) Supporting Document(s) C-REACTIVE PROT 0.96 mg/dL 0.00-0.49 [facility] jer ID Date Data Source [id number] 05/22/2020 07:22:00 AM EDT [facility] Name Value Range Interpretation Code Description Data Rosa rce(s) Supporting Document(s) MAGNESIUM 2.0 mg/dL 1.6-2.6 [facility] ID Date Data Source [id number] 05/22/2020 07:22:00 AM EDT [facility] Name Value Range Interpretation Code Description Data Rosa rce(s) Supporting Document(s) GLU 217 mg/dL 70-110 [facility] Patients taking Sulfasalazine may have f alsely depressedGlucose levels. Patients taking Sulfapyridine may havefalsely elevated Glucose levels. Patients should be drawnfor Glucose before the initial administration of eitherdrug. BUN 23 mg/dL 7-23 [facility] CRE 0.901 mg/dL 0.500-1.300 [facility] GFR > 60 mL/min [facility] CHLORIDE 114 mmol/L 99-110 [facility] NA 145 mmol/L 136-147 [facility] POTASSIUM 3.9 mmol/L 3.5-5.1 [facility] TCO2 27 mmol/L 20-33 [facility] ANION GAP 7.9 10.0-20.0 [facility] CA 8.0 mg/dL 8.3-10.7 [facility] ALKALINE PHOS 144 U/L 45-117 [facility] TP 5.4 g/dL 6.0-7.8 [facility] ALB 2.5 g/dL 3.5-5.0 [facility] ESRD Dialysis patient Albumin reference range: 2.9-4.4 g/dL GL 2.9 g/dL 2.3-3.5 [facility] A/G 0.9 1.0-2.5 [facility] T. BILIRUBIN 0.5 mg/dL 0.1-1.1 [facility] [place] Total Bilirubin is n ot recommended forpatients undergoing treatment with eltrombopag (Promacta)due to the potential for falsely elevated results. ALTI 38 U/L 6-54 [facility] Patients taking Sulfasalazine and/or Sul fapyridine may havefalsely depressed ALT levels. Patients should be drawn forALT before the initial administration of either drug. AST 27 U/L 6-38 [facility] Patients taking Sulfasalazine and/or Sul fapyridine may havefalsely depressed AST levels. Patients should be drawn forAST before the initial administration of either drug. ID Date Data Source [id number] 05/22/2020 07:04:00 AM EDT [facility] Name Value Range Interpretation Code Description Data Rosa rce(s) Supporting Document(s) WBC 13.34 x10E3/uL 4.0-10.5 [facility] RBC 2.90 x10E6/uL 4.20-5.40 [facility] Hemoglobin 8.8 g/dL 12.0-16.0 [facility] Hematocrit 27.2 % 37.0-47.0 [facility] MCV 93.8 fL 81.0-99.0 [facility] MCH 30.3 pg 27.0-31.0 [facility] MCHC 32.4 g/dL 32.7-35.6 [facility] RDW 15.3 % 11.5-14.0 [facility] Platelet count 141 x10E3/uL 150-450 [facility] ital MPV 10.1 fl 6.9-9.5 [facility] Neutrophils 84.2 % 34-64 [facility] Lymphocytes 7.2 % 25-45 [facility] Monocytes 6.2 % 1.7-10.6 [facility] Eosinophils 1.3 % 0.4-7.0 [facility] Basophils 0.1 % 0.1-2.0 [facility] Imm. Gran. 1.0 % 0.1-2.0 [facility] Abs. Neutro. 11.22 x10E3/uL 1.2-7.6 [facility] [place] [facility] Abs. Lymph. 0.96 x10E3/uL 1.0-3.5 [facility] Abs. [place]. 0.83 x10E3/uL 0.1-1.0 [facility] Abs. Eosin. 0.18 x10E3/uL 0.1-0.7 [facility] Abs. Baso. 0.01 x10E3/uL 0.0-0.1 [facility] Abs. Imm. Gran. 0.14 x10E3/uL 0.0-0.1 [facility] [place] [facility] ANRBC% 0 % 0 [facility] ID Date Data Source [id number] 05/23/2020 09:11:00 AM EDT [facility] Name Value Range Interpretation Code Description Data Rosa rce(s) Supporting Document(s) FGLU 224 mg/dL 70-110 [facility] ID Date Data Source [id number] 05/23/2020 12:07:00 AM EDT [facility] Name Value Range Interpretation Code Description Data Rosa rce(s) Supporting Document(s) FGLU 201 mg/dL 70-110 [facility] ID Date Data Source [id number] 05/21/2020 06:03:00 PM EDT [place] [id number] NOTEPATIENT NAME: JOHNFRANCISCOELASALLY VIVAR PHYSICIAN: MICHAEL WANG MDAUTHOR: [place], Zhang. DATE: 05/18/20 MR#: [id number] NOTE DATE: 05/21/20 RM#: [id number] TIME: 1814 : 45SubjectiveCC/Hx Present IllnessBack painEvents Since Last EntryCurrently alert oriented x2. Very poor historian. On chronic oxygen. Patientcomfortable, reported chronic back pain. Following command, tolerating p.o.Seems more responsive today. Denies chest pain. Afebrile. All other reviewof system negativeObjectiveVital SignsVital Signs-24 HRS05/20 2123 0142 0455 0802Temp 98.7 97.1 97.2Pulse 101 86 102Resp 18 17 22B/P 166/71 140/88 140/88B/P MeanPulse Ox 89 90 95O2 Delivery Nasal cannula Nasal cannula Nasal cannulaO2 Flow Rate 3L 2L 5OeE08005/21830 1014 1350 1710Temp 97.6 98.2 99.3Pulse 97 100 95Resp 18 16 16B/P 140/86 152/86 158/78 190/88B/P MeanPulse Ox 98 98 100O2 Delivery Nasal cannula Nasal cannula Nasal cannulaO2 Flow Rate 2 3L 9UViM6Deusbd/OutputIntake/Output Summary 24 hours05/20 1900 05/21 0700Intake Total [...] skin tearPsych/Mental Status mood neutralResultsLaboratory DataRecent Labs-24 hours05/20307455 0361 0700 0952ChemistrySodium (136 - 147 mmol/L) 146Potassium [...] stenosis, possible concern for discitis. Patient transferred [facility] for MRI thoracic and lumbar spine.-We will obtain MRI of the thoracic and lumbar spine.-Patient on vancomycin IV and Zosyn IV-Leukocytosis trending down. C-reactive protein eqwjlyq-Bajqyy-ca blood cultures-Pain management.unable to obtain MRI due [...] pyelonephritis on CT abdomen pelvis-Continue with Zosyn da-Rtmovb-zl urine culture.5. HLD (hyperlipidemia)Status ChronicA&PContinue statin6. Spinal stenosisStatus ChronicA&PChronic history of spinal stenosis continue with pain management.7. DepressionStatus ChronicA&PContinue with duloxetine., BuSpar8. HypothyroidismStatus ChronicA&PCheck TSH.-Continue with levothyroxine.9. HTN (hypertension)Status ChronicA&P-Continue with lisinopril and increase hydralazine 50 mg p.o. 3 times daily,restarting Norvasc-Monitor blood pressure.10. CKD (chronic kidney disease)Status ChronicA&PHistory of CKD. SU at [facility].-Monitor renal function.11. DiabetesStatus ChronicA&PComplicated with hypoglycemia and hyperglycemiaLevemir 6 units daily, continue NovoLog via protocol, close monitoring, cxwbtwlrmbooi18. AnxietyStatus AcuteA&Mendoza chronic benzodiazepines. Will continue.13. PVD (peripheral vascular disease)Status ChronicA&PHistory of stent placement.Continue with Plavix, statin-Continue to monitor.14. DebilityStatus ChronicA&P-Supportive care- Consider PT/OT when patient is more alert.15. HypoalbuminemiaStatus ChronicA&PEncourage p.o. intake. Nutrition supplementation.Ensure p.o. 3 times daily.16. Polysubstance abuseStatus ChronicA&PThiamine, folic acid, multivitamin, Ativan as needed for zguotiszll59. HypernatremiaStatus AcuteA&PLikely secondary to IV fluids, encourage oral hydration. Mjgqujaqz66. HyperglycemiaStatus AcuteA&PSecondary to steroid, will be very cautious in increasing coverage due toepisode of hypoglycemia, taper steroidAdditional Sesjh31-nnkt-uxm female patient underlying medical history of COPD O2 dependent,spinal stenosis, depression, dyslipidemia, type 2 diabetes, nicotine addiction,anxiety, hypothyroidism, debility, CKD, peripheral vascular disease,hypoalbuminemia, polysubstance abuse, [facility], sepsis, deconditioning with frequentfall, transferred given complains of back pain and worsening leukocytosisDVT prophylaxis Heparin subcuDisposition pending clinical improvement we will reattempt to get MRIResuscitation status Full codeCase discussed with catalytic case operator, nursing staffVTE ProphylaxisVTE Prophylaxis: Heparin subcu.DATE SIGNED: 05/21/20 Electronically SignedTIME SIGNED: 1814 SAAD FRIED MD Name Value Range Interpretation Code Description Data Rosa rce(s) Supporting Document(s) ID Date Data Source [id number] 05/21/2020 06:55:00 PM EDT [facility] Name Value Range Interpretation Code Description Data Rosa rce(s) Supporting Document(s) FGLU 287 mg/dL 70-110 [facility] ID Date Data Source [id number] 05/22/2020 02:28:00 AM EDT [facility] Name Value Range Interpretation Code Description Data Rosa rce(s) Supporting Document(s) FGLU 210 mg/dL 70-110 [facility] ID Date Data Source [id number] 05/21/2020 06:53:00 PM EDT [facility] Name Value Range Interpretation Code Description Data Rosa rce(s) Supporting Document(s) FGLU 343 mg/dL 70-110 [facility] ID Date Data Source [id number] 05/21/2020 10:26:00 AM EDT [facility] COMMENTS TO LAB: CRITICAL HIGH Name Value Range Interpretation Code Description Data Rosa rce(s) Supporting Document(s) GLU 453 mg/dL 70-110 [facility] Patients taking Sulfasalazine may have f alsely depressedGlucose levels. Patients taking Sulfapyridine may havefalsely elevated Glucose levels. Patients should be drawnfor Glucose before the initial administration of eitherdrug. ID Date Data Source [id number] 05/21/2020 07:55:00 AM EDT [facility] COMMENTS TO LAB: [facility] BS Name Value Range Interpretation Code Description Data Rosa rce(s) Supporting Document(s) GLU 433 mg/dL 70-110 [facility] Patients taking Sulfasalazine may have f alsely depressedGlucose levels. Patients taking Sulfapyridine may havefalsely elevated Glucose levels. Patients should be drawnfor Glucose before the initial administration of eitherdrug. ID Date Data Source [id number] 05/21/2020 05:21:00 AM EDT [facility] Name Value Range Interpretation Code Description Data Rosa rce(s) Supporting Document(s) VANCOMYCIN RAND 21.2 ug/mL 5-10 [facility] ID Date Data Source [id number] 05/21/2020 05:09:00 AM EDT [facility] Name Value Range Interpretation Code Description Data Rosa rce(s) Supporting Document(s) C-REACTIVE PROT 2.01 mg/dL 0.00-0.49 [facility] ID Date Data Source [id number] 05/21/2020 05:09:00 AM EDT [facility] Name Value Range Interpretation Code Description Data Rosa rce(s) Supporting Document(s) MAGNESIUM 2.2 mg/dL 1.6-2.6 [facility] ID Date Data Source [id number] 05/21/2020 05:09:00 AM EDT [facility] Name Value Range Interpretation Code Description Data Rosa rce(s) Supporting Document(s) GLU 345 mg/dL 70-110 [facility] Patients taking Sulfasalazine may have f alsely depressedGlucose levels. Patients taking Sulfapyridine may havefalsely elevated Glucose levels. Patients should be drawnfor Glucose before the initial administration of eitherdrug. BUN 24 mg/dL 7-23 [facility] CRE 1.010 mg/dL 0.500-1.300 [facility] GFR 57 mL/min [facility] CHLORIDE 113 mmol/L 99-110 [facility] NA 146 mmol/L 136-147 [facility] POTASSIUM 3.4 mmol/L 3.5-5.1 [facility] TCO2 27 mmol/L 20-33 [facility] ANION GAP 9.4 10.0-20.0 [facility] CA 8.3 mg/dL 8.3-10.7 [facility] ALKALINE PHOS 148 U/L 45-117 [facility] TP 5.5 g/dL 6.0-7.8 [facility] ALB 2.7 g/dL 3.5-5.0 [facility] ESRD Dialysis patient Albumin reference range: 2.9-4.4 g/dL GL 2.8 g/dL 2.3-3.5 [facility] A/G 1.0 1.0-2.5 [facility] T. BILIRUBIN 0.6 mg/dL 0.1-1.1 [facility] [employer] [place] Total Bilirubin is n ot recommended forpatients undergoing treatment with eltrombopag (Promacta)due to the potential for falsely elevated results. ALTI 46 U/L 6-54 [facility] Patients taking Sulfasalazine and/or Sul fapyridine may havefalsely depressed ALT levels. Patients should be drawn forALT before the initial administration of either drug. AST 32 U/L 6-38 [facility] Patients taking Sulfasalazine and/or Sul fapyridine may havefalsely depressed AST levels. Patients should be drawn forAST before the initial administration of either drug. ID Date Data Source [id number] 05/21/2020 04:46:00 AM EDT [facility] Name Value Range Interpretation Code Description Data Rosa rce(s) Supporting Document(s) WBC 13.24 x10E3/uL 4.0-10.5 [facility] RBC 2.89 x10E6/uL 4.20-5.40 [facility] Hemoglobin 8.8 g/dL 12.0-16.0 [facility] Hematocrit 26.9 % 37.0-47.0 [facility] MCV 93.1 fL 81.0-99.0 [facility] MCH 30.4 pg 27.0-31.0 [facility] MCHC 32.7 g/dL 32.7-35.6 [facility] RDW 15.1 % 11.5-14.0 [facility] Platelet count 153 x10E3/uL 150-450 [facility] ital MPV 9.7 fl 6.9-9.5 [facility] Neutrophils 94.0 % 34-64 [facility] Lymphocytes 2.4 % 25-45 [facility] Monocytes 2.0 % 1.7-10.6 [facility] Eosinophils 0 % 0.4-7.0 [facility] Basophils 0.1 % 0.1-2.0 [facility] Imm. Gran. 1.5 % 0.1-2.0 [facility] Abs. Neutro. 12.45 x10E3/uL 1.2-7.6 [facility] Abs. Lymph. 0.32 x10E3/uL 1.0-3.5 [facility] Abs. [place]. 0.26 x10E3/uL 0.1-1.0 [facility] Abs. Eosin. 0.00 x10E3/uL 0.1-0.7 [facility] Abs. Baso. 0.01 x10E3/uL 0.0-0.1 [facility] Abs. Imm. Gran. 0.20 x10E3/uL 0.0-0.1 [facility] ANRBC% 0 % 0 [facility] DIFFERENTIAL CONFIRMED BY SLIDE REVIEW. ID Date Data Source [id number] 05/21/2020 12:46:00 AM EDT [facility] Name Value Range Interpretation Code Description Data Rosa rce(s) Supporting Document(s) FGLU 326 mg/dL 70-110 [facility] ID Date Data Source [id number] 05/20/2020 08:01:00 PM EDT [facility] Name Value Range Interpretation Code Description Data Rosa rce(s) Supporting Document(s) FGLU 71 mg/dL 70-110 [facility] ID Date Data Source [id number] 05/20/2020 03:28:00 PM EDT [facility] Name Value Range Interpretation Code Description Data Rosa rce(s) Supporting Document(s) VANCOMYCIN TROU 19.1 ug/mL 5-10 [facility] FOR SKIN AND SKIN STRUCTURE INFECTIONS, GUIDELINES RECOMMENDA TROUGH OF 10. FOR SEVERE INFECTIONS, (PNEUMONIA, OSTEOMYELITIS, MENINGITISAND BACTEREMIA) A TARGET TROUGH OF 15 TO 20 IS RECOMMENDED. ID Date Data Source [id number] 05/20/2020 11:56:00 AM EDT [facility] [address] [id number] NOTEPATIENT NAME: COUTURE,ELA BATTENDING PHYSICIAN: MICHAEL WANG, MDAUTHOR: Breezy GA, JieADM. DATE: 05/18/20 MR#: [id number] NOTE DATE: 05/20/20 RM#: [id number] TIME: 1210 : 45SubjectiveCC/Hx Present IllnessBack painEvents Since Last EntryCurrently alert oriented x1. Very poor historian. On chronic oxygen. Furtherhistory limited. Reported thirst, would like to drink some water. Toleratingapplesauce . Seems more responsive today.ObjectiveVital SignsVital Signs-24 HRS05/19602499 8808 2145 0209Temp 99.0 98.7 97.6Pulse 99 83 95Resp 18 18 20B/P 132/78 154/72 158/73B/P MeanPulse Ox 96 94 96O2 Delivery Nasal cannula Nasal cannula Nasal cannulaO2 Flow Rate 3 3L 2OXzY967/ 0405/20 04/107916 9110 0902 0922Temp 97.8Pulse 107Resp 24B/P 188/103 161/78 161/78B/P MeanPulse Ox 96O2 Delivery MD AT BEDSIDE Nasal cannula Nasal cannulaO2 Flow Rate 3LNC 3L 9LfW6Osguyl/OutputIntake/Output Summary 24 hours05/19 1900 05/20 0700Intake Total 2520 1420Output Total 1600 1000Balance [...] Status Unable to assess.ResultsLaboratory DataRecent Labs- 24 hours05/1905 1707 0415 0415ChemistrySodium (136 - 147 mmol/L) [...] stenosis, possible concern for discitis. Patient transferred [facility] for MRI thoracic and lumbar spine.-We [...] pyelonephritis on CT abdomen pelvis-Continue with Zosyn vl-Nknnwa-ev urine culture.5. HLD (hyperlipidemia)Status ChronicA&PContinue statin6. Spinal stenosisStatus ChronicA&PChronic history of spinal stenosis continue with pain management.7. DepressionStatus ChronicA&PContinue with duloxetine., BuSpar8. HypothyroidismStatus ChronicA&PCheck TSH.-Continue with levothyroxine.9. HTN (hypertension)Status ChronicA&P-Continue with lisinopril and increase hydralazine 50 mg p.o. twice daily.-Monitor blood pressure.10. CKD (chronic kidney disease)Status ChronicA&PHistory of CKD. SU at [facility].-Monitor renal function.11. DiabetesStatus ChronicA&PHypoglycemia, Levemir dose reduced, continue NovoLog via protocol, closemonitoring,12. AnxietyStatus AcuteA&Mendoza chronic benzodiazepines. Will continue.13. PVD (peripheral vascular disease)Status ChronicA&PHistory of stent placement.Continue with Plavix, statin-Continue to monitor.14. DebilityStatus ChronicA&P-Supportive care-Consider PT/OT when patient is more alert.15. HypoalbuminemiaStatus ChronicA&PEncourage p.o. intake. Nutrition supplementation.Ensure p.o. 3 times daily.16. Polysubstance abuseStatus ChronicA&PThiamine, folic acid, multivitamin, Ativan as needed for cjymxvhqag16. HypernatremiaStatus AcuteA&PLikely secondary to IV fluids, encourage oral hydration. Patient currentlydrinking lots of water.Additional [id number] female patient underlying medical history of COPD O2 dependent,spinal stenosis, depression, dyslipidemia, type 2 diabetes, nicotine addiction,anxiety, hypothyroidism, debility, CKD, peripheral vascular disease,hypoalbuminemia, polysubstance abuse, [facility] lobe [facility], sepsis, deconditioning with frequentfall, transferred given complains of back pain and worsening leukocytosisDVT prophylaxis Heparin subcuDisposition pending clinical improvement we will reattempt to get MRIResuscitation status Full codeCase discussed with catalytic case operator, nursing staffVTE ProphylaxisVTE Prophylaxis: Heparin subcu.DATE SIGNED: 05/20/20 Electronically SignedTIME SIGNED: 1210 SAAD FRIED MD Name Value Range Interpretation Code Description Data Rosa rce(s) Supporting Document(s) ID Date Data Source [id number] 05/20/2020 09:32:00 PM EDT [facility] Name Value Range Interpretation Code Description Data Rosa rce(s) Supporting Document(s) FGLU 341 mg/dL 70-110 [facility] ID Date Data Source [id number] 05/21/2020 02:05:00 AM EDT [facility] Name Value Range Interpretation Code Description Data Rosa rce(s) Supporting Document(s) FGLU 316 mg/dL 70-110 [facility] ID Date Data Source [id number] 05/20/2020 06:21:00 AM EDT [facility] Name Value Range Interpretation Code Description Data Rosa rce(s) Supporting Document(s) USTSH 0.82 uIU/mL 0.270-4.200 [facility] ID Date Data Source [id number] 05/20/2020 05:41:00 AM EDT [facility] Name Value Range Interpretation Code Description Data Rosa rce(s) Supporting Document(s) C-REACTIVE PROT 4.82 mg/dL 0.00-0.49 [facility] ID Date Data Source [id number] 05/20/2020 05:41:00 AM EDT [facility] Name Value Range Interpretation Code Description Data Rosa rce(s) Supporting Document(s) MAGNESIUM 2.1 mg/dL 1.6-2.6 [facility] ID Date Data Source [id number] 05/20/2020 05:41:00 AM EDT [facility] Name Value Range Interpretation Code Description Data Rosa rce(s) Supporting Document(s) GLU 253 mg/dL 70-110 [facility] Patients taking Sulfasalazine may have f alsely depressedGlucose levels. Patients taking Sulfapyridine may havefalsely elevated Glucose levels. Patients should be drawnfor Glucose before the initial administration of eitherdrug. BUN 20 mg/dL 7-23 [facility] CRE 0.747 mg/dL 0.500-1.300 [facility] GFR > 60 mL/min [facility] CHLORIDE 115 mmol/L 99-110 [facility] NA 150 mmol/L 136-147 [facility] POTASSIUM 3.5 mmol/L 3.5-5.1 [facility] TCO2 26 mmol/L 20-33 [facility] ANION GAP 12.5 10.0-20.0 [facility] CA 8.4 mg/dL 8.3-10.7 [facility] ALKALINE PHOS 151 U/L 45-117 [facility] TP 4.9 g/dL 6.0-7.8 [facility] ALB 2.6 g/dL 3.5-5.0 [facility] ESRD Dialysis patient Albumin reference range: 2.9-4.4 g/dL GL 2.3 g/dL 2.3-3.5 [facility] A/G 1.1 1.0-2.5 [facility] T. BILIRUBIN 0.7 mg/dL 0.1-1.1 [facility] [employer] [place] Total Bilirubin is n ot recommended forpatients undergoing treatment with eltrombopag (Promacta)due to the potential for falsely elevated results. ALTI 53 U/L 6-54 [facility] Patients taking Sulfasalazine and/or Sul fapyridine may havefalsely depressed ALT levels. Patients should be drawn forALT before the initial administration of either drug. AST 59 U/L 6-38 [facility] Patients taking Sulfasalazine and/or Sul fapyridine may havefalsely depressed AST levels. Patients should be drawn forAST before the initial administration of either drug. ID Date Data Source [id number] 05/20/2020 05:30:00 AM EDT [facility] Name Value Range Interpretation Code Description Data Rosa rce(s) Supporting Document(s) WBC 13.75 x10E3/uL 4.0-10.5 [facility] RBC 2.80 x10E6/uL 4.20-5.40 [facility] Hemoglobin 8.3 g/dL 12.0-16.0 [facility] Hematocrit 26.2 % 37.0-47.0 [facility] MCV 93.6 fL 81.0-99.0 [facility] MCH 29.6 pg 27.0-31.0 [facility] MCHC 31.7 g/dL 32.7-35.6 [facility] RDW 14.9 % 11.5-14.0 [facility] Platelet count 137 x10E3/uL 150-450 [facility] MPV 10.0 fl 6.9-9.5 [facility] Neutrophils 93.6 % 34-64 [facility] Lymphocytes 2.6 % 25-45 [facility] Monocytes 1.9 % 1.7-10.6 [facility] Eosinophils 0 % 0.4-7.0 [facility] Basophils 0.1 % 0.1-2.0 [facility] Imm. Gran. 1.8 % 0.1-2.0 [facility] Abs. Neutro. 12.87 x10E3/uL 1.2-7.6 [facility] Abs. Lymph. 0.36 x10E3/uL 1.0-3.5 [facility] Abs. [place]. 0.26 x10E3/uL 0.1-1.0 [facility] Abs. Eosin. 0.00 x10E3/uL 0.1-0.7 [facility] Abs. Baso. 0.01 x10E3/uL 0.0-0.1 [facility] Abs. Imm. Gran. 0.25 x10E3/uL 0.0-0.1 [facility] ANRBC% 0 % 0 [facility] DIFFERENTIAL CONFIRMED BY SLIDE REVIEW. ID Date Data Source [id number] 05/20/2020 05:14:00 AM EDT [facility] ANTI-COAGULANTS PT.IS TAKING: None Name Value Range Interpretation Code Description Data Rosa rce(s) Supporting Document(s) INR 0.92 0.91-1.09 [facility] INR THERAPEUTIC RANGES Prophylaxis of ve nous thrombosis ] (high risk surgery) ]Treatment of venous thrombosis ]Treatment of pulmonary embolism ]Prevention of systemic embolism ] 2.0-3.0Tissue heart valves ]Acute myocardial infarction ]Valvular disease ]Atrial fibrillation ]Recurrent systemic embolism ] Mechanical prosthetic heart valves -------- 2.5-3.5 ID Date Data Source [id number] 05/21/2020 02:12:00 PM EDT [facility] Name Value Range Interpretation Code Description Data Rosa rce(s) Supporting Document(s) FGLU 170 mg/dL 70-110 [facility] ID Date Data Source [id number] 05/20/2020 09:34:00 AM EDT [facility] Name Value Range Interpretation Code Description Data Rosa rce(s) Supporting Document(s) MRSA/SAUR [facility]CRN [facility] S.A[facility]EN [facility] S[facility]EN [facility] ID Date Data Source [id number] 05/19/2020 06:44:00 PM EDT [facility] Name Value Range Interpretation Code Description Data Rosa rce(s) Supporting Document(s) FGLU 53 mg/dL 70-110 [facility] ID Date Data Source [id number] 05/19/2020 04:55:00 PM EDT [address] [id number] NOTEPATIENT NAME: ELA PONCE PHYSICIAN: MICHAEL WANG MDAUTHOR: Breezy GA, Zhang. DATE: 05/18/20 MR#: [id number] NOTE DATE: 05/19/20 RM#: [id number] TIME: 1715 [...] Nasal cannulaO2 Flow Rate 2LPM 3LPM 2 9HiZ515/ 0856TempPulseRespB/P 162/82B/P MeanPulse OxO2 Delivery Nasal cannulaO2 Flow Rate 3FvT2Rdvhdj/OutputIntake/Output Summary 24 hours05/18 1900 05/19 0700Intake Total [...] POSodium Chloride (SODIUM CHLORIDE 0.9%) 1,000 ML .L50U57V IVSodium Chloride (Saline Flush Syr(10ML)) 10 ML [...] %) 0ESR (0 - 20 MM/HR) 36 H04/05/19 0805 1145 1605ChemistrySodium (136 - 147 mmol/L) [...] stenosis, possible concern for discitis. Patient transferred [facility] for MRI thoracic and lumbar spine.-We [...] pyelonephritis on CT abdomen pelvis-Continue with Zosyn ni-Ruhqqw-lj urine culture.5. HLD (hyperlipidemia)Status ChronicA&PContinue statin6. Spinal stenosisStatus ChronicA&PChronic history of spinal stenosis continue with pain management.7. DepressionStatus ChronicA&PContinue with duloxetine., BuSpar8. HypothyroidismStatus ChronicA&PCheck TSH.-Continue with levothyroxine.9. HTN (hypertension)Status ChronicA&P-Continue with lisinopril and hydralazine.-Monitor blood pressure.10. CKD (chronic kidney disease)Status ChronicA&PHistory of CKD. US at [facility]. Creatinine today 0.9.-Monitor renal function.11. DiabetesStatus ChronicA&PHyperglycemia, [...] acid, multivitamin, Ativan as needed for withdrawalAdditional Onvse15-pkza-auf female patient underlying medical history of COPD O2 dependent,spinal stenosis, depression, dyslipidemia, type 2 diabetes, nicotine addiction,anxiety, hypothyroidism, debility, CKD, peripheral vascular disease,hypoalbuminemia, polysubstance abuse, initially admitted to [facility] for right upper lobe pneumonia, sepsis, deconditioning with frequentfall, transferred given complains of back pain and worsening leukocytosisDVT prophylaxis Heparin subcuDisposition pending clinical improvement we will reattempt to get MRIResuscitation status Full codeCase discussed with catalytic case operator, nursing staffVTE ProphylaxisVTE Prophylaxis: Heparin subcu.DATE SIGNED: 05/19/20 Electronically SignedTIME SIGNED: 6920 SAAD FRIED MD Name Value Range Interpretation Code Description Data Rosa rce(s) Supporting Document(s) ID Date Data Source [id number] 05/19/2020 05:09:00 PM EDT [facility] Name Value Range Interpretation Code Description Data Rosa rce(s) Supporting Document(s) VANCOMYCIN TROU 14.4 ug/mL 5-10 [facility] FOR SKIN AND SKIN STRUCTURE INFECTIONS, GUIDELINES RECOMMENDA TROUGH OF 10. FOR SEVERE INFECTIONS, (PNEUMONIA, OSTEOMYELITIS, MENINGITISAND BACTEREMIA) A TARGET TROUGH OF 15 TO 20 IS RECOMMENDED. ID Date Data Source [id number] 05/19/2020 04:37:00 PM EDT [facility] Name Value Range Interpretation Code Description Data Rosa rce(s) Supporting Document(s) FGLU 174 mg/dL 70-110 [facility] ID Date Data Source [id number] 05/19/2020 08:46:00 AM EDT [facility] Name Value Range Interpretation Code Description Data Rosa rce(s) Supporting Document(s) CKI 200 U/L 17-150 [facility] ID Date Data Source [id number] 05/19/2020 07:39:00 PM EDT [facility] Name Value Range Interpretation Code Description Data Rosa rce(s) Supporting Document(s) FGLU 337 mg/dL 70-110 [facility] ID Date Data Source [id number] 05/19/2020 07:11:00 AM EDT [facility] Name Value Range Interpretation Code Description Data Rosa rce(s) Supporting Document(s) GLU 319 mg/dL 70-110 [facility] Patients taking Sulfasalazine may have f alsely depressedGlucose levels. Patients taking Sulfapyridine may havefalsely elevated Glucose levels. Patients should be drawnfor Glucose before the initial administration of eitherdrug. BUN 27 mg/dL 7-23 [facility] CRE 0.993 mg/dL 0.500-1.300 [facility] GFR 58 mL/min [facility] CHLORIDE 111 mmol/L 99-110 [facility] NA 146 mmol/L 136-147 [facility] POTASSIUM 3.9 mmol/L 3.5-5.1 [facility] TCO2 27 mmol/L 20-33 [facility] ANION GAP 11.9 10.0-20.0 [facility] CA 8.7 mg/dL 8.3-10.7 [facility] ALKALINE PHOS 110 U/L 45-117 [facility] TP 5.4 g/dL 6.0-7.8 [facility] ALB 2.6 g/dL 3.5-5.0 [facility] ESRD Dialysis patient Albumin reference range: 2.9-4.4 g/dL GL 2.8 g/dL 2.3-3.5 [facility] A/G 0.9 1.0-2.5 [facility] T. BILIRUBIN 0.5 mg/dL 0.1-1.1 [facility] [employer] [place] Total Bilirubin is n ot recommended forpatients undergoing treatment with eltrombopag (Promacta)due to the potential for falsely elevated results. ALTI 40 U/L 6-54 [facility] Patients taking Sulfasalazine and/or Sul fapyridine may havefalsely depressed ALT levels. Patients should be drawn forALT before the initial administration of either drug. AST 32 U/L 6-38 [facility] Patients taking Sulfasalazine and/or Sul fapyridine may havefalsely depressed AST levels. Patients should be drawn forAST before the initial administration of either drug. ID Date Data Source [id number] 05/19/2020 06:45:00 AM EDT [facility] Name Value Range Interpretation Code Description Data Rosa rce(s) Supporting Document(s) WBC 13.42 x10E3/uL 4.0-10.5 [facility] RBC 2.98 x10E6/uL 4.20-5.40 [facility] Hemoglobin 9.0 g/dL 12.0-16.0 [facility] Hematocrit 28.1 % 37.0-47.0 [facility] MCV 94.3 fL 81.0-99.0 [facility] MCH 30.2 pg 27.0-31.0 [facility] MCHC 32.0 g/dL 32.7-35.6 [facility] RDW 15.0 % 11.5-14.0 [facility] Platelet count 144 x10E3/uL 150-450 [facility] MPV 10.0 fl 6.9-9.5 [facility] Neutrophils 88.7 % 34-64 [facility] Lymphocytes 3.6 % 25-45 [facility] Monocytes 5.4 % 1.7-10.6 [facility] Eosinophils 0.8 % 0.4-7.0 [facility] Basophils 0.1 % 0.1-2.0 [facility] Imm. Gran. 1.4 % 0.1-2.0 [facility] Abs. Neutro. 11.89 x10E3/uL 1.2-7.6 [facility] Abs. Lymph. 0.48 x10E3/uL 1.0-3.5 [facility] Abs. [place]. 0.73 x10E3/uL 0.1-1.0 [facility] Abs. Eosin. 0.11 x10E3/uL 0.1-0.7 [facility] Abs. Baso. 0.02 x10E3/uL 0.0-0.1 [facility] Abs. Imm. Gran. 0.19 x10E3/uL 0.0-0.1 [facility] ANRBC% 0 % 0 [facility] DIFFERENTIAL CONFIRMED BY SLIDE REVIEW. ID Date Data Source [id number] 05/19/2020 02:06:00 AM EDT [facility] Name Value Range Interpretation Code Description Data Rosa rce(s) Supporting Document(s) GLU 348 mg/dL 70-110 [facility] Patients taking Sulfasalazine may have f alsely depressedGlucose levels. Patients taking Sulfapyridine may havefalsely elevated Glucose levels. Patients should be drawnfor Glucose before the initial administration of eitherdrug. BUN 27 mg/dL 7-23 H [facility] CRE 0.991 mg/dL 0.500-1.300 [facility] GFR 58 mL/min [facility] CHLORIDE 111 mmol/L 99-110 [facility] NA 146 mmol/L 136-147 [facility] POTASSIUM 4.3 mmol/L 3.5-5.1 [facility] TCO2 27 mmol/L 20-33 [facility] ANION GAP 12.3 10.0-20.0 [facility] CA 8.9 mg/dL 8.3-10.7 [facility] ALKALINE PHOS 112 U/L 45-117 [facility] TP 5.3 g/dL 6.0-7.8 [facility] ALB 2.6 g/dL 3.5-5.0 [facility] ESRD Dialysis patient Albumin reference range: 2.9-4.4 g/dL GL 2.7 g/dL 2.3-3.5 [facility] A/G 1.0 1.0-2.5 [facility] T. BILIRUBIN 0.6 mg/dL 0.1-1.1 [facility] [place] Total Bilirubin is n ot recommended forpatients undergoing treatment with eltrombopag (Promacta)due to the potential for falsely elevated results. ALTI 41 U/L 6-54 [facility] Patients taking Sulfasalazine and/or Sul fapyridine may havefalsely depressed ALT levels. Patients should be drawn forALT before the initial administration of either drug. AST 30 U/L 6-38 [facility] Patients taking Sulfasalazine and/or Sul fapyridine may havefalsely depressed AST levels. Patients should be drawn forAST before the initial administration of either drug. ID Date Data Source [id number] 05/19/2020 01:55:00 AM EDT [facility] Name Value Range Interpretation Code Description Data Rosa rce(s) Supporting Document(s) WBC 14.51 x10E3/uL 4.0-10.5 [facility] RBC 3.16 x10E6/uL 4.20-5.40 L [facility] Hemoglobin 9.5 g/dL 12.0-16.0 L [facility] Hematocrit 29.7 % 37.0-47.0 L [facility] MCV 94.0 fL 81.0-99.0 N [facility] MCH 30.1 pg 27.0-31.0 N [facility] MCHC 32.0 g/dL 32.7-35.6 L [facility] RDW 15.0 % 11.5-14.0 [facility] Platelet count 158 x10E3/uL 150-450 [facility] MPV 9.9 fl 6.9-9.5 [facility] Neutrophils 88.5 % 34-64 [facility] Lymphocytes 3.6 % 25-45 L [facility] Monocytes 5.7 % 1.7-10.6 [facility] Eosinophils 0.8 % 0.4-7.0 N [facility] Basophils 0.2 % 0.1-2.0 [facility] Imm. Gran. 1.2 % 0.1-2.0 [facility] Abs. Neutro. 12.84 x10E3/uL 1.2-7.6 [facility] Abs. Lymph. 0.52 x10E3/uL 1.0-3.5 [facility] Abs. [place]. 0.83 x10E3/uL 0.1-1.0 [facility] Abs. Eosin. 0.11 x10E3/uL 0.1-0.7 [facility] Abs. Baso. 0.03 x10E3/uL 0.0-0.1 [facility] Abs. Imm. Gran. 0.18 x10E3/uL 0.0-0.1 [facility] ANRBC% 0 % 0 [facility] DIFFERENTIAL CONFIRMED BY SLIDE REVIEW. ID Date Data Source [id number] 05/18/2020 11:40:00 PM EDT [facility] ANTI-COAGULANTS PT.IS TAKING: Plavix Name Value Range Interpretation Code Description Data Rosa rce(s) Supporting Document(s) APTT 22.2 SECONDS 21.2-31.2 [facility] NOTE NEW REFERENCE RANGE EFFECTIVE ID Date Data Source [id number] 05/18/2020 11:40:00 PM EDT [facility] ANTI-COAGULANTS PT.IS TAKING: Plavix Name Value Range Interpretation Code Description Data Rosa rce(s) Supporting Document(s) INR 0.91 0.91-1.09 [facility] INR THERAPEUTIC RANGES Prophylaxis of ve nous thrombosis ] (high risk surgery) ]Treatment of venous thrombosis ]Treatment of pulmonary embolism ]Prevention of systemic embolism ] 2.0-3.0Tissue heart valves ]Acute myocardial infarction ]Valvular disease ]Atrial fibrillation ]Recurrent systemic embolism ] Mechanical prosthetic heart valves -------- 2.5-3.5 ID Date Data Source [id number] 05/18/2020 11:01:00 PM EDT [facility] Name Value Range Interpretation Code Description Data Rosa rce(s) Supporting Document(s) TROPONIN HS 67.8 ng/L 3.0-82.3 [facility] ID Date Data Source [id number] 05/18/2020 11:01:00 PM EDT [facility] Name Value Range Interpretation Code Description Data Rosa rce(s) Supporting Document(s) LACTIC ACID COMFORT 0.4 mmol/L 0.4-2.0 N [facility] ID Date Data Source [id number] 05/18/2020 11:00:00 PM EDT [facility] Name Value Range Interpretation Code Description Data Rosa rce(s) Supporting Document(s) ESR 36 MM/HR 0-20 H [facility] ID Date Data Source [id number] 05/25/2020 12:12:00 PM EDT [facility] Name Value Range Interpretation Code Description Data Rosa rce(s) Supporting Document(s) [facility] ID Date Data Source [id number] 05/25/2020 12:11:00 PM EDT [facility] Name Value Range Interpretation Code Description Data Rosa rce(s) Supporting Document(s) [facility] ID Date Data Source [id number] 05/18/2020 10:59:00 PM EDT [facility] Name Value Range Interpretation Code Description Data Rosa rce(s) Supporting Document(s) C-REACTIVE PROT 3.66 mg/dL 0.00-0.49 [facility] ID Date Data Source [id number] 05/18/2020 09:29:00 PM EDT [facility] [address] [address]VCSSYEO AND PHYSICALPATIENT NAME: ELA PONCE MR#: [id number] PHYSICIAN: MICHAEL WANG MDAUTHOR: Michael Wang MD DATE: 05/18/20 RM#: [id number] & PHYSICAL DATE: 05/18/20 : 45EVALUATION TIME: 2128HisChief Complaint/Admit ReasonTransfer [facility] MRIHistory of Presenting [id number] female past medical history of COPD, spinal stenosis, depression,hyperlipidemia, type 2 diabetes, nicotine addiction, anxiety, hypothyroidism,debility, CKD, peripheral vascular disease, hypoalbuminemia, was [facility]ad[facility] being treated for right upper lobe pneumonia andsepsis on antibiotics and extreme deconditioning, unsteady gait and frequentfalls during the hospitalization patient complained of back pain on examinationwas noted to have severe tenderness over the lumbar and thoracic spine. CRPinitially was 6.5 later became elevated to 25 with corresponding rise and WBCto 23. Decision was made to initially transfer patient to [facility] for an MRI momo done to rule out discitis and then patient be transferred back to [facility] however upon arrival at [facility] patient refused the MRI and patient wasbrought back to [facility]. At [facility] patient became agitated andsomewhat combative sustained ecchymosis in bilateral upper extremities.Patient had to be given B-52. [facility] to [facility] again for the second time patientbecame agitated. At [facility] patient was also found to have UTI, CT ofthe abdomen and pelvis showed some questionable/possible pyelonephritis.Patient was given vancomycin and Zosyn at [facility] and transferred to [facility]. When I evaluated patient patient was completely [...] obtainUnable to obtain patient sedated.ExamVital SignsVital Signs-24 HRS04/08 05/18 05/19 05/19280359 1046 0132 0543Temp 97.9 97.4 97.8Pulse 110 99 100Resp 17 17 17B/P 160/91 159/63 160/67B/P MeanPulse Ox 92 98 93O2 Delivery Nasal cannula Nasal cannula Nasal cannula Nasal cannulaO2 Flow Rate 2LPM 3LPM 2 5QhC6Alrserev ExaminationGeneral Appearance sedated, Response to verbal and [...] %) 0ESR (0 - 20 MM/HR) 36 H04/686869VttcfxjivTibxyb (136 - 147 mmol/L) 146Potassium (3.5 - [...] x10E3/uL) 0.02Nucleated RBC % (auto) (0 %) 5Rlvxgtlsrlsv38/08 2200 BLOOD: Blood Culture - RECD05/18 2199 BLOOD: Blood Culture - [facility]CDIgood [facility].Chest x-ray:Impression:Persistent parenchymal disease in the right upper [...] leuko cytosis.Concern for discitis. Patient transferred to [facility] for MRI thoracic and lumbarspine.-We [...] obstructive pulmonary disease)A&P2 L home O2 dependent.-Oxygen uxwltinyuabmnpg57. CKD (chronic kidney disease)A&PHistory of CKD. SU at [facility]. Creatinine today 0.9.-Monitor renal function.11. DiabetesA&PPlaced on insulin sliding scale.-Monitor fingersticks.-Patient had hypoglycemic episodes at [facility] and her Levemir dose wasdecreased to 10 [...] rce(s) Supporting Document(s) ID Date Data Source [id number] 05/18/2020 07:05:00 PM EDT [facility] Summary of HospitalizationReason for Ad missionweakness, [...] avail and made arrangements for transfer to [facility] this morining for MRI and PICC line [...] O2 Flow FiO2 Mean Ox Delivery Rate 05/18 1042 98.7 87 18 158/74 100 05/18 2011 [...] rce(s) Supporting Document(s) ID Date Data Source [id number] 05/18/2020 06:53:00 PM EDT [facility] Discharge Appointments Outpatient Tests *patient discharged [...] rce(s) Supporting Document(s) ID Date Data Source [id number] 05/18/2020 02:46:00 PM EDT [facility] [...] rce(s) Supporting Document(s) ID Date Data Source [id number] 05/18/2020 02:43:00 PM EDT [facility] TSYSORDER [id number] Name Value Range Interpretation Code Description Data Rosa rce(s) Supporting Document(s) ARTERIAL BLOOD GAS pH 7.45 7.35-7.45 [facility] spital ARTERIAL BLOOD GAS PCO2 39.3 mmHg 30-45 [facility] ARTERIAL BLOOD GAS PO2 67 mmHg 75-100 [facility] ARTERIAL BLOOD GAS HCO3 26.9 meq/L 17-23 H [facility] ARTERIAL BLOOD GAS BASE EXCESS 3.1 -2.0-2.0 H [facility] ARTERIAL BLD GAS O2 SATURATION 94.9 % 90-98 [facility] ARTERIAL BLOOD GAS CTCO2 28.1 mmol/L 23.0-31.0 [facility] ID Date Data Source [id number] 05/18/2020 03:18:00 PM EDT [facility] TSYSORDER [id number] Name Value Range Interpretation Code Description Data Rosa rce(s) Supporting Document(s) TROPONIN I 0.071 ng/mL 0.000-0.056 *H [facility] ID Date Data Source [id number] 05/18/2020 03:01:[address] [facility] l TSYSORDER [id number] Name Value Range Interpretation Code Description Data Rosa rce(s) Supporting Document(s) LACTIC ACID 0.6 mmol/L 0.4-2.0 [facility] ID Date Data Source [id number] 05/18/2020 01:43:00 PM EDT [facility] jer Exam Number: [id number] OF EXAMINATIO N: 05/18/2020 11:55 EDTU/S GUIDE FOR VASCULAR ACCESSHISTORY: PICC line placementPRELIMINARY ULTRASOUND FINDINGS:Both upper extremities were evaluated revealing extremely small 1 to 2mm veins.Unable to perform the procedure.IMPRESSION:Procedure terminated due to extremely small vasculatureElectronically signed in PS360 by: Tabitha De La Vega M.D. 112:33 EDT Reported By: - Pramod DE LA VEGA M.D. Signed By: Pramod DE LA VEGA M.D. Name Value Range Interpretation Code Description Data Rosa rce(s) Supporting Document(s) ID Date Data Source [id number] 05/18/2020 10:15:00 AM EDT [facility] Name Value Range Interpretation Code Description Data Rosa rce(s) Supporting Document(s) URINE RBC 1-3 /hpf 0-3 [facility] URINE WBC 0-2 /hpf 0-5 H [facility] URINE EPITHELIAL CELLS 2+ /hpf 0 [facility] URINE BACTERIA TRACE NONE SEEN H [facility] URINE MUCUS 1+ NEGATIVE [facility] URINE AMORPHOUS SEDIMENT 3+ [facility] ID Date Data Source [id number] 05/18/2020 10:14:00 AM EDT [facility] Name Value Range Interpretation Code Description Data Rosa rce(s) Supporting Document(s) URINE COLOR. [facility] URINE APPEARANCE SLIGHTY CLOUDY [facility] URINE GLUCOSE (UA) NEGATIVE mg/dL NEGATIVE [facility] URINE BILIRUBIN NEGATIVE NEGATIVE [facility] URINE KETONE NEGATIVE mg/dL [facility]GATIVE [facility] SPECIFIC GRAVITY,URINE 1.020 1.005-1.030 [facility] URINE BLOOD NEGATIVE NEGATIVE [facility] PH,URINE 6.5 5.0-9.0 [facility] URINE PROTEIN 4+(>=300) mg/dL NEGATIVE H [facility] URINE UROBILINOGEN NORMAL(0.2-1) mg/dL 0-1 R [facility] URINE NITRATE NEGATIVE NEGATIVE [facility] URINE LEUKOCYTE ESTERASE NEGATIVE NEGATIVE [facility] ID Date Data Source [id number] 05/18/2020 09:03:00 AM EDT [facility] DATE OF EXAMINATION: 05/18/2020 8:18 EDT [...] Value Range Interpretation Code Description Data [facility](s) Supporting Document(s) ID Date Data Source [id number] 05/18/2020 09:01:00 AM EDT [facility] DATE OF EXAMINATION: 05/18/2020 7:58 EDT [...] in the right upper lobe is likely patient care representative ofpneumonia and should be followed to complete resolution. IMPRESSION: Xwyg-cb-exysnlnt parenchymal disease in the right upper lobe consistent withpneumonia should be followed to complete resolution. Severe calcified coronary arterial plaque formation likely hemodynamicallysignificant. Electronically signed in PS360 by: Tabitha De La Vega M.D. 05/18/2020 8:56 EDT Name Value Range Interpretation Code Description Data [facility] Document(s) ID Date Data Source [id number] 05/18/2020 09:00:00 AM EDT [facility] DATE OF EXAMINATION: 05/18/2020 8:18 [...] rce(s) Supporting Document(s) ID Date Data Source [id number] 05/18/2020 07:17:00 AM EDT [facility] Name Value Range Interpretation Code Description Data Rosa rce(s) Supporting Document(s) COVID-19 NEGATIVE [facility] This lab was ordered by [facility] and reported by [facility]. ID Date Data Source [id number] 05/18/2020 07:36:00 AM EDT [facility] Name Value Range Interpretation Code Description Data Rosa rce(s) Supporting Document(s) COVID-19 NEGATIVE NEGATIVE [facility] Negative results should be treated as pr [...] are for the indentification of SARS-CoV-2 RNA. IgpFIYZ-HcB-1 RNA is generally detectable in respiratorysamples during the actue phase of infection. ID Date Data Source [id number] 05/18/2020 07:38:00 AM EDT [facility] Name Value Range Interpretation Code Description Data Rosa rce(s) Supporting Document(s) ERYTHROCYTE SEDIMENTATION RATE 13 mm/hr 0-30 [facility] ID Date Data Source [id number] 05/18/2020 07:03:00 AM EDT [facility] Name Value Range Interpretation Code Description Data Rosa rce(s) Supporting Document(s) C REACTIVE PROTEIN 25.7 mg/L 0.0-3.0 H [facility] ID Date Data Source [id number] 05/18/2020 06:46:00 AM T [facility] Name Value Range Interpretation Code Description Data Rosa rce(s) Supporting Document(s) GLUCOSE 258 mg/dL 74-106 H [facility] BLOOD UREA NITROGEN 34 mg/dL 7-18 H [facility] CREATININE 1.40 mg/dL 0.6-1.0 H [facility] SODIUM 139 mmol/L 136-145 [facility] POTASSIUM 4.9 mmol/L 3.5-5.1 [facility] CHLORIDE 102 mmol/L 98-107 [facility] CO2 27 mmol/L 21-32 [facility] CALCIUM 9.2 mg/dL 8.5-10.1 [facility] ANION GAP 10.0 mmol/L 5-12 [facility] GLOMERULAR FILTRATION RATE 37 mL/min [facility] GFR IS CALCULATED IN mL/min/1.73m2 ST[facility]EN[facility] L FUNCTION: >90MILDLY DECREASED: 60-89MILDY TO MODERATELY DECREASED: 45-59 MODERATELY TO SEVERELY DECREASED: 30-44SEVERELY DECREASED: 15-29RENAL FAILURE: <15 ID Date Data Source [id number] 05/18/2020 06:36:00 AM [facility] Name Value Range Interpretation Code Description Data Rosa rce(s) Supporting Document(s) WHITE BLOOD COUNT 14.0 K/mm3 4.0-10.0 H [facility] RED BLOOD COUNT 3.70 M/mm3 4.00-5.50 L [facility] HEMOGLOBIN 11.3 gm/dL 12.0-16.0 L [facility] HEMATOCRIT 33.4 % 36.0-48.8 L [facility] MEAN CELL VOLUME 90.3 fl 80-96 [facility] MEAN CORPUSCULAR HEMOGLOBIN 30.5 pg 27.0-31.0 [facility] MEAN CORPUSCULAR HGB CONC 33.8 g/dl 32.0-36.0 [facility] RED CELL DISTRIBUTION WIDTH 15.1 % 10.0-14.5 H [facility] PLATELET COUNT 159 K/mm3 172-450 L [facility] MEAN PLATELET VOLUME 10.1 fl 9.0-13.0 [facility] pital GRAN % 85.2 % 50-80.0 [facility] IG% 2.1 % 0.0-0.2 H [facility] LYMPH % 6.5 % 25.0-50.0 L [facility] MONO % 5.7 % 2.0-10.0 [facility] EOS % 0.4 % 0-5.0 [facility] BASO % 0.1 % 0.0-2.0 [facility] GRAN # 12.0 K/mm3 2.0-8.00 H [facility] IG# 0.3 K/mm3 0.0-0.2 H [facility] LYMPH # 0.9 K/mm3 1.0-5.0 L [facility] MONO # 0.8 K/mm3 0.10-1.20 [facility] EOS # 0.1 K/mm3 0.0-0.5 [facility] BASO # 0.0 K/mm3 0.0-0.2 [facility] ID Date Data Source [id number] 05/17/2020 10:50:00 PM EDT [facility] Name Value Range Interpretation Code Description Data Rosa rce(s) Supporting Document(s) URINE AMPHETAMINES POSITIVE <1000 ng/mL H [facility] COCAINE, URINE NEGATIVE <300 ng/mL [facility] THC,URINE POSITIVE <50 ng/mL H [facility] URINE BENZODIAZEPINES POSITIVE <300 ng/mL H [facility] URINE,TCA NEGATIVE <1000 ng/mL [facility] IF A NEGATIVE RESULT IS OBTAINED AND ING ESTION OF TRICYCLICANTIDEPRESSANTS IS SUSPECTED, A SERUM SAMPLE SHOULD BEOBTAINED AND TESTED USING AN APPROPRIATE METHOD. URINE BARBITURATES NEGATIVE <300 ng/mL [facility] MDMA NEGATIVE <500 ng/mL [facility] URINE,OPIATES NEGATIVE <300 ng/mL [facility] PCP,URINE NEGATIVE <25 ng/mL [facility] OXYCODONE URINE POSITIVE <100 ng/mL [facility] l PROPOXYPHENE NEGATIVE <300 ng/mL [facility] THESE TESTS ARE PERFORMED USING AN IMMU NOASSAY FOR THEQUALITATIVE DETERMINATION OF THE PRESENCE OF THE MAJORMETABOLITES OF DRUGS OF ABUSE. THESE TESTS ARE ONLY ASCREENING AND NOT CONFIRMATORY. CLINICAL CONSIDERATION ANDPROFESSIONAL JUDGMENT MUST BE APPLIED TO ANY DRUG OF ABUSETEST RESULT. ID Date Data Source [id number] 05/20/2020 01:16:00 PM EDT [facility] RARE WBCSRARE SECSSMALL NUMBERS GRAM POS BACILLISMALL NUMBERS GRAM-POSITIVE COCCI IN CHAINSRARE GRAM NEGATIVE BACILLIRARE YEAST LIKE Name Value Range Interpretation Code Description Data Rosa rce(s) Supporting Document(s) ORGANISM [facility] COLONY COUNT N [facility] ID Date Data Source [id number] 05/17/2020 12:07:00 PM EDT [facility] DATE OF EXAMINATION: 05/17/2020 7:50 EDT [...] rce(s) Supporting Document(s) ID Date Data Source [id number] 05/19/2020 02:06:00 PM EDT [facility] Name Value Range Interpretation Code Description Data Rosa rce(s) Supporting Document(s) SPECIMEN SOURCE Urine . [facility] STREPTOCOCCUS PEUMONIAE AG Negative Negative [facility] BODY FLUID CULTURE STERILE Not indicated. . [facility] ORGANISM ID Not indicated. . [facility] PLEASE NOTE: Comment . [facility] [employer] standar ds require aculture to be performed on CSF specimens submitted forbacterial antigen testing. (CAP [id number]) Urine specimenswill not be cultured.Performed at: - [facility] [id number] Director: Ramu Cota MD, Phone: [phone] ID Date Data Source [id number] 05/19/2020 02:05:00 PM EDT [facility] Name Value Range Interpretation Code Description Data Rosa rce(s) Supporting Document(s) Specimen Source Urine [facility] Streptococcus pneumoniae Ag Negative Negative [facility] Body Fluid Culture, Sterile Not indicated. [facility] Organism ID Not indicated. [facility] Please Note: [facility] [employer] standar ds require a culture to beperformed on CSF specimens submitted for bacterial antigen testing.(CAP [id number]) Urine specimens will not be cultured. ID Date Data Source [id number] 05/18/2020 03:26:00 PM EDT [facility] Is the patient hospitalized ([facility] or [facility] Y Name Value Range Interpretation Code Description Data Rosa rce(s) Supporting Document(s) L PNEUMO SERO 1 NEGATIVE NEGATIVE N [facility] MANUAL ENTRY RECHECKED Screen for [...] (REFERENCE RANGE= NEGATIVE) ID Date Data Source [id number] 05/17/2020 12:37:00 PM EDT [facility] Name Value Range Interpretation Code Description Data Rosa rce(s) Supporting Document(s) LEGIONELLA AG URINE-ANGELES SENT TO [facility] ID Date Data Source [id number] 05/23/2020 08:17:00 AM EDT [facility] Name Value Range Interpretation Code Description Data Rosa rce(s) Supporting Document(s) [facility] ID Date Data Source [id number] 05/23/2020 08:15:00 AM EDT [facility] Name Value Range Interpretation Code Description Data Rosa rce(s) Supporting Document(s) [facility] ID Date Data Source [id number] 05/17/2020 09:02:00 AM EDT [facility] Name Value Range Interpretation Code Description Data Rosa rce(s) Supporting Document(s) LACTIC ACID 1.4 mmol/L 0.4-2.0 [facility] ID Date Data Source [id number] 05/17/2020 08:39:00 AM EDT [facility] Name Value Range Interpretation Code Description Data Rosa rce(s) Supporting Document(s) PARTIAL THROMBOPLASTIN TIME 22.5 SECONDS 21.2-27.3 [facility] ID Date Data Source [id number] 05/17/2020 08:39:00 AM [facility] Name Value Range Interpretation Code Description Data Rosa rce(s) Supporting Document(s) PROTHROMBIN TIME (PATIENT) 9.9 SECONDS 9.1-11.6 [facility] INR 0.95 0.87-1.06 [facility] ID Date Data Source [id number] 05/17/2020 08:07:00 AM [facility] Name Value Range Interpretation Code Description Data Rosa rce(s) Supporting Document(s) ERYTHROCYTE SEDIMENTATION RATE 14 mm/hr 0-30 [facility] ID Date Data Source [id number] 05/17/2020 07:09:00 AM [facility] Name Value Range Interpretation Code Description Data Rosa rce(s) Supporting Document(s) WHITE BLOOD COUNT 23.1 K/mm3 4.0-10.0 H [facility] jer RED BLOOD COUNT 3.87 M/mm3 4.00-5.50 L [facility] HEMOGLOBIN 11.7 gm/dL 12.0-16.0 L [facility] HEMATOCRIT 34.6 % 36.0-48.8 L [facility] MEAN CELL VOLUME 89.4 fl 80-96 [facility] MEAN CORPUSCULAR HEMOGLOBIN 30.2 pg 27.0-31.0 H [facility] MEAN CORPUSCULAR HGB CONC 33.8 g/dl 32.0-36.0 [facility] RED CELL DISTRIBUTION WIDTH 15.1 % 10.0-14.5 H [facility] PLATELET COUNT 284 K/mm3 172-450 [facility] MEAN PLATELET VOLUME 9.8 fl 9.0-13.0 [facility] pital GRAN % 82.0 % 50-80.0 H [facility] IG% 1.8 % 0.0-0.2 H [facility] LYMPH % 7.4 % 25.0-50.0 L [facility] [facility] MONO % 7.8 % 2.0-10.0 [facility] EOS % 0.9 % 0-5.0 [facility] BASO % 0.1 % 0.0-2.0 [facility] GRAN # 19.0 K/mm3 2.0-8.00 *H [facility] IG# 0.4 K/mm3 0.0-0.2 H [facility] LYMPH # 1.7 K/mm3 1.0-5.0 [facility] MONO # 1.8 K/mm3 0.10-1.20 H [facility] EOS # 0.2 K/mm3 0.0-0.5 [facility] BASO # 0.0 K/mm3 0.0-0.2 [facility] ID Date Data Source [id number] 05/17/2020 07:36:[address] [facility] l Name Value Range Interpretation Code Description Data Rosa rce(s) Supporting Document(s) C REACTIVE PROTEIN 6.5 mg/L 0.0-3.0 [facility] ID Date Data Source [id number] 05/17/2020 07:36:[address] [facility] l Name Value Range Interpretation Code Description Data Rosa rce(s) Supporting Document(s) GLUCOSE 31 mg/dL 74-106 *L [facility] BLOOD UREA NITROGEN 32 mg/dL 7-18 [facility] CREATININE 1.25 mg/dL 0.6-1.0 H [facility] SODIUM 140 mmol/L 136-145 [facility] POTASSIUM 4.4 mmol/L 3.5-5.1 [facility] CHLORIDE 102 mmol/L 98-107 [facility] CO2 29 mmol/L 21-32 [facility] CALCIUM 9.3 mg/dL 8.5-10.1 [facility] ANION GAP 9.0 mmol/L 5-12 [facility] GLOMERULAR FILTRATION RATE 42 mL/min [facility] GFR IS CALCULATED IN mL/min/1.73m2 STEVENSON L FUNCTION: >90MILDLY DECREASED: 60-89MILDY TO MODERATELY DECREASED: 45-59 MODERATELY TO SEVERELY DECREASED: 30-44SEVERELY DECREASED: 15-29RENAL FAILURE: <15 AST 47 U/L 15-37 H [facility] ALT 51 U/L 12-78 [facility] ALKALINE PHOSPHATASE 121 U/L 46-116 H [facility] pital TOTAL BILIRUBIN 0.3 mg/dL 0.2-1.0 [facility] TOTAL PROTEIN 5.9 g/dl 6.4-8.2 L [facility] ALBUMIN 3.1 gm/dL 3.4-5.0 L [facility] ID Date Data Source [id number] 05/18/2020 03:25:00 PM EDT [facility] Name Value Range Interpretation Code Description Data Rosa rce(s) Supporting Document(s) MRSA/SAUR SCRN [facility] S.AURE[facility] SCREEN N [facility] MRSA SCREEN N [facility] ID Date Data Source [id number] 05/17/2020 12:28:[address] [facility] l HistoryChief Complaint/Admit ReasonRigh t upper and right lower lobe pneumoniaExtreme deconditioningUnsteady GaitFrequent FallsHistory of Presenting IllnessMrsam Ponce is a 74 year old female with history of significant COPD and heavy tobacco use for over 60 years, oxygen dependent, patient of Dr Rao, history ofchronic lower back pain related to [...] medications who presented to emergency department of [facility] on 05/10/2020 with generalized malaise, severe weakness, cough and intractable back pain. She was found to have leucocytosis of18.2 and right upper and right lower lobe pneumonia with mediastinal lymphadenopathy. Of note Mrs Ponce was seen a day before her arrival here at [facility] and was discharged home with Cefdinir and [...] normal capillary refill, no calf tendernessNeurologic/Psychiatric alert, cell reliner II-XII nml as tested, normal mood/affect, no [...] discussed with , significant otherCase discussed with catalytic case operator, nursing staffCopies toFamily Provider: Smoking Cessation Counseling* [...] rce(s) Supporting Document(s) ID Date Data Source [id number] 05/17/2020 12:22:00 AM EDT [facility] Summary of HospitalizationHospital Cour seChief Complaint/Admit ReasonRight upper and right lower lobe pneumoniaExtreme deconditioningUnsteady GaitFrequent FallsHistory of Presenting IllnessMrs Couture is a 74 year old female with history of significant COPD and heavy tobacco use for over 60 years, oxygen dependent, patient of Dr Rao, history ofchronic lower back pain related to [...] medications who presented to emergency department of [facility] on 05/10/2020 with generalized malaise, severe weakness, cough and intractable back pain. She was found to have leucocytosis of18.2 and right upper and right lower lobe pneumonia with mediastinal lymphadenopathy. Of note Mrs Ponce was seen a day before her arrival here at [facility] and was discharged home with Cefdinir and [...] normal capillary refill, no calf tendernessNeurologic/Psychiatric alert, cell reliner II- XII nml as tested, normal mood/affect, [...] discussed with , significant otherCase discussed with catalytic case operator, nursing staffCopies toFamily Provider: VTE ProphylaxisVTE Prophylaxis: [...] rce(s) Supporting Document(s) ID Date Data Source [id number] 05/16/2020 07:46:00 AM EDT [facility] Name Value Range Interpretation Code Description Data Rosa rce(s) Supporting Document(s) ERYTHROCYTE SEDIMENTATION RATE 28 mm/hr 0-30 [facility] ID Date Data Source [id number] 05/16/2020 06:49:00 AM EDT [facility] Name Value Range Interpretation Code Description Data Rosa rce(s) Supporting Document(s) WHITE BLOOD COUNT 13.3 K/mm3 4.0-10.0 H [facility] RED BLOOD COUNT 3.60 M/mm3 4.00-5.[address] [facility] l HEMOGLOBIN 10.9 gm/dL 12.0-16.0 L [facility] HEMATOCRIT 32.5 % 36.0-48.8 L [facility] MEAN CELL VOLUME 90.3 fl 80-96 [facility] MEAN CORPUSCULAR HEMOGLOBIN 30.3 pg 27.0-31.0 [facility] MEAN CORPUSCULAR HGB CONC 33.5 g/dl 32.0-36.0 [facility] RED CELL DISTRIBUTION WIDTH 14.7 % 10.0-14.5 H [facility] PLATELET COUNT 174 K/mm3 172-450 [facility] MEAN PLATELET VOLUME 10.0 fl 9.0-13.0 [facility] pital GRAN % 93.2 % 50-80.0 H [facility] IG% 1.4 % 0.0-0.2 H [facility] LYMPH % 2.4 % 25.0-50.0 *L [facility] MONO % 3.0 % 2.0-10.0 [facility] EOS % 0.0 % 0-5.0 [facility] BASO % 0.0 % 0.0-2.0 [facility] GRAN # 12.4 K/mm3 2.0-8.00 H [facility] IG# 0.2 K/mm3 0.0-0.2 [facility] LYMPH # 0.3 K/mm3 1.0-5.0 L [facility] MONO # 0.4 K/mm3 0.10-1.20 [facility] EOS # 0.0 K/mm3 0.0-0.5 [facility] BASO # 0.0 K/mm3 0.0-0.2 [facility] ID Date Data Source [id number] 05/16/2020 07:12:00 AM EDT [facility] Name Value Range Interpretation Code Description Data Rosa rce(s) Supporting Document(s) GLUCOSE 323 mg/dL 74-106 H [facility] BLOOD UREA NITROGEN 24 mg/dL 7-18 [facility] CREATININE 1.12 mg/dL 0.6-1.0 H [facility] SODIUM 136 mmol/L 136-145 [facility] POTASSIUM 5.3 mmol/L 3.5-5.1 H [facility] CHLORIDE 99 mmol/L 98-107 [facility] CO2 29 mmol/L 21-32 [facility] CALCIUM 9.1 mg/dL 8.5-10.1 [facility] ANION GAP 8.0 mmol/L 5-12 [facility] GLOMERULAR FILTRATION RATE 48 mL/min [facility] GFR IS CALCULATED IN mL/min/1.73m2 STEVENSON L FUNCTION: >90MILDLY DECREASED: 60-89MILDY TO MODERATELY DECREASED: 45-59 MODERATELY TO SEVERELY DECREASED: 30-44SEVERELY DECREASED: 15-29RENAL FAILURE: <15 AST 28 U/L 15-37 [facility] ALT 41 U/L 12-78 [facility] ALKALINE PHOSPHATASE 107 U/L 46-116 [facility] pital TOTAL BILIRUBIN 0.3 mg/dL 0.2-1.0 [facility] TOTAL PROTEIN 5.9 g/dl 6.4-8.2 L [facility] ALBUMIN 2.7 gm/dL 3.4-5.0 [facility] ID Date Data Source [id number] 05/15/2020 03:58:00 PM EDT [facility] Progress Note GeneralEncounter:Chart re viewed. Patient [...] normal capillary refill, no calf tendernessNeurologic/Psychiatric alert, cell reliner II-XII nml as tested, normal mood/affect, no [...] follow up.Mrs Ponce is being seen byDr Rao 24. Memory loss 25. Noncompliance w/medication treatment [...] rce(s) Supporting Document(s) ID Date Data Source [id number] 05/15/2020 12:05:00 PM [facility] Progress Note GeneralEncounter:Chart re viewed. Patient interviewed [...] for that. Upon the beginning of my rotationMrs Ponce announced shewas living as we do not [...] no calf tenderness, no pedal edemaNeurologic/Psychiatric alert, cell reliner II-XII nml as tested, normal mood/affect, no [...] PO Vital Signs 05/12 05/12 05/12 05/13 05/13 1530 1900 2352 0315 0645 Temp 98.0 97.8 98.3 98.6 98.2 Pulse 98 92 94 87 87 Resp 18 16 18 14 18 B/P 109/58 142/72 143/70 139/65 166/79 B/P Mean Pulse Ox 96 98 97 99 97 O2 Delivery O2 Flow Rate FiO2 04 1030 Temp 97.3 Pulse 91 Resp 20 [...] lumbar region A&PUnlikely surgical candidate due to ll2wavyr use and nonadherence 10. Ambulatory dysfunction A&PSevere [...] Name Value Range Interpretation Code Description Data [facility]) Supporting Document(s) ID Date Data Source [id number] 05/15/2020 07:25:[address] [facility] l Name Value Range Interpretation Code Description Data [facility](s) Supporting Document(s) GLUCOSE 138 mg/dL 74-106 H [facility] BLOOD UREA NITROGEN 27 mg/dL 7-18 [facility] CREATININE 1.08 mg/dL 0.6-1.0 H [facility] SODIUM 139 mmol/L 136-145 [facility] POTASSIUM 4.6 mmol/L 3.5-5.1 [facility] CHLORIDE 103 mmol/L 98-107 [facility] CO2 26 mmol/L 21-32 [facility] CALCIUM 9.1 mg/dL 8.5-10.1 [facility] ANION GAP 10.0 mmol/L 5-12 [facility] GLOMERULAR FILTRATION RATE 50 mL/min [facility] GFR IS CALCULATED IN mL/min/1.73m2 STEVENSON L FUNCTION: >90MILDLY DECREASED: 60-89MILDY TO MODERATELY DECREASED: 45-59 MODERATELY TO SEVERELY DECREASED: 30-44SEVERELY DECREASED: 15-29RENAL FAILURE: <15 AST 27 U/L 15-37 [facility] ALT 37 U/L 12-78 [facility] ALKALINE PHOSPHATASE 98 U/L 46-116 [facility] TOTAL BILIRUBIN 0.3 mg/dL 0.2-1.0 [facility] TOTAL PROTEIN 5.6 g/dl 6.4-8.2 L [facility] ALBUMIN 2.8 gm/dL 3.4-5.0 L [facility] ID Date Data Source [id number] 05/15/2020 07:06:00 AM EDT [facility] Name Value Range Interpretation Code Description Data Rosa rce(s) Supporting Document(s) WHITE BLOOD COUNT 13.5 K/mm3 4.0-10.0 [facility] RED BLOOD COUNT 3.64 M/mm3 4.00-5.50 L [facility] HEMOGLOBIN 11.1 gm/dL 12.0-16.0 L [facility] HEMATOCRIT 32.7 % 36.0-48.8 L [facility] MEAN CELL VOLUME 89.8 fl 80-96 [facility] MEAN CORPUSCULAR HEMOGLOBIN 30.5 pg 27.0-31.0 [facility] MEAN CORPUSCULAR HGB CONC 33.9 g/dl 32.0-36.0 [facility] RED CELL DISTRIBUTION WIDTH 14.8 % 10.0-14.5 H [facility] PLATELET COUNT 182 K/mm3 172-450 [facility] MEAN PLATELET VOLUME 10.0 fl 9.0-13.0 [facility] pital GRAN % 93.7 % 50-80.0 H [facility] IG% 1.2 % 0.0-0.2 H [facility] LYMPH % 2.0 % 25.0-50.0 *L [facility] MONO % 3.0 % 2.0-10.0 [facility] EOS % 0.0 % 0-5.0 [facility] BASO % 0.1 % 0.0-2.0 [facility] GRAN # 12.7 K/mm3 2.0-8.00 H [facility] IG# 0.2 K/mm3 0.0-0.2 [facility] LYMPH # 0.3 K/mm3 1.0-5.0 L [facility] MONO # 0.4 K/mm3 0.10-1.20 [facility] EOS # 0.0 K/mm3 0.0-0.5 [facility] BASO # 0.0 K/mm3 0.0-0.2 [facility] ID Date Data Source [id number] 05/14/2020 01:01:[address] [facility] l DATE OF EXAMINATION: 05/14/2020 11:08 EDT CHEST [...] rce(s) Supporting Document(s) ID Date Data Source [id number] 05/14/2020 06:18:00 AM T [facility] Name Value Range Interpretation Code Description Data Rosa rce(s) Supporting Document(s) GLUCOSE 229 mg/dL 74-106 H [facility] BLOOD UREA NITROGEN 30 mg/dL 7-18 [facility] CREATININE 1.16 mg/dL 0.6-1.0 H [facility] SODIUM 137 mmol/L 136-145 [facility] POTASSIUM 5.5 mmol/L 3.5-5.1 H [facility] CHLORIDE 102 mmol/L 98-107 [facility] CO2 27 mmol/L 21-32 [facility] CALCIUM 8.7 mg/dL 8.5-10.1 [facility] ANION GAP 8.0 mmol/L 5-12 [facility] GLOMERULAR FILTRATION RATE 46 mL/min [facility] GFR IS CALCULATED IN mL/min/1.73m2 STEVENSON L FUNCTION: >90MILDLY DECREASED: 60-89MILDY TO MODERATELY DECREASED: 45-59 MODERATELY TO SEVERELY DECREASED: 30-44SEVERELY DECREASED: 15-29RENAL FAILURE: <15 AST 26 U/L 15-37 [facility] ALT 35 U/L 12-78 [facility] ALKALINE PHOSPHATASE 100 U/L 46-116 [facility] pital TOTAL BILIRUBIN 0.3 mg/dL 0.2-1.0 [facility] TOTAL PROTEIN 5.8 g/dl 6.4-8.2 L [facility] ALBUMIN 2.9 gm/dL 3.4-5.0 [facility] ID Date Data Source [id number] 05/14/2020 05:53:00 AM [facility] Name Value Range Interpretation Code Description Data Rosa rce(s) Supporting Document(s) WHITE BLOOD COUNT 12.6 K/mm3 4.0-10.0 H [facility] jer RED BLOOD COUNT 3.72 M/mm3 4.00-5.50 L [facility] HEMOGLOBIN 11.3 gm/dL 12.0-16.0 L [facility] HEMATOCRIT 33.2 % 36.0-48.8 L [facility] MEAN CELL VOLUME 89.2 fl 80-96 [facility] MEAN CORPUSCULAR HEMOGLOBIN 30.4 pg 27.0-31.0 [facility] MEAN CORPUSCULAR HGB CONC 34.0 g/dl 32.0-36.0 [facility] RED CELL DISTRIBUTION WIDTH 14.7 % 10.0-14.5 H [facility] PLATELET COUNT 164 K/mm3 172-450 L [facility] MEAN PLATELET VOLUME 9.4 fl 9.0-13.0 [facility] pital GRAN % 94.0 % 50-80.0 H [facility] IG% 1.1 % 0.0-0.2 H [facility] LYMPH % 2.7 % 25.0-50.0 *L [facility] MONO % 2.1 % 2.0-10.0 [facility] EOS % 0.0 % 0-5.0 [facility] BASO % 0.1 % 0.0-2.0 [facility] GRAN # 11.8 K/mm3 2.0-8.00 H [facility] IG# 0.1 K/mm3 0.0-0.2 [facility] LYMPH # 0.3 K/mm3 1.0-5.0 L [facility] MONO # 0.3 K/mm3 0.10-1.20 [facility] EOS # 0.0 K/mm3 0.0-0.5 [facility] BASO # 0.0 K/mm3 0.0-0.2 [facility] ID Date Data Source [id number] 05/13/2020 04:51:[address] [facility] l Name Value Range Interpretation Code Description Data Rosa rce(s) Supporting Document(s) C REACTIVE PROTEIN 16.1 mg/L 0.0-3.0 [facility] ADD ON FROM AM LABS05/13/20 1651: CRP previously reported as: mg/L ADD ON FROM [facility] ID Date Data Source [id number] 05/13/2020 06:23:[address] [facility] l Name Value Range Interpretation Code Description Data Rosa rce(s) Supporting Document(s) GLUCOSE 169 mg/dL 74-106 H [facility] BLOOD UREA NITROGEN 37 mg/dL 7-18 [facility] CREATININE 1.20 mg/dL 0.6-1.0 H [facility] SODIUM 141 mmol/L 136-145 [facility] POTASSIUM 5.7 mmol/L 3.5-5.1 H [facility] CHLORIDE 105 mmol/L 98-107 [facility] CO2 27 mmol/L 21-32 [facility] CALCIUM 8.8 mg/dL 8.5-10.1 [facility] ANION GAP 9.0 mmol/L 5-12 [facility] GLOMERULAR FILTRATION RATE 44 mL/min [facility] GFR IS CALCULATED IN mL/min/1.73m2 STEVENSON L FUNCTION: >90MILDLY DECREASED: 60-89MILDY TO MODERATELY DECREASED: 45-59 MODERATELY TO SEVERELY DECREASED: 30-44SEVERELY DECREASED: 15-29RENAL FAILURE: <15 AST 25 U/L 15-37 [facility] ALT 33 U/L 12-78 [facility] ALKALINE PHOSPHATASE 93 U/L 46-116 [facility] TOTAL BILIRUBIN 0.2 mg/dL 0.2-1.0 [facility] TOTAL PROTEIN 5.5 g/dl 6.4-8.2 L [facility] ALBUMIN 2.6 gm/dL 3.4-5.0 [facility] ID Date Data Source [id number] 05/13/2020 05:51:00 AM EDT [facility] Name Value Range Interpretation Code Description Data Rosa rce(s) Supporting Document(s) WHITE BLOOD COUNT 11.6 K/mm3 4.0-10.0 [facility] RED BLOOD COUNT 3.56 M/mm3 4.00-5.50 L [facility] HEMOGLOBIN 11.0 gm/dL 12.0-16.0 [facility] HEMATOCRIT 32.4 % 36.0-48.8 L [facility] MEAN CELL VOLUME 91.0 fl 80-96 [facility] MEAN CORPUSCULAR HEMOGLOBIN 30.9 pg 27.0-31.0 [facility] MEAN CORPUSCULAR HGB CONC 34.0 g/dl 32.0-36.0 [facility] RED CELL DISTRIBUTION WIDTH 14.9 % 10.0-14.5 H [facility] PLATELET COUNT 159 K/mm3 172-450 L [facility] MEAN PLATELET VOLUME 9.8 fl 9.0-13.0 [facility] pital GRAN % 86.4 % 50-80.0 H [facility] IG% 0.8 % 0.0-0.2 H [facility] LYMPH % 6.4 % 25.0-50.0 L [facility] MONO % 6.1 % 2.0-10.0 [facility] EOS % 0.2 % 0-5.0 [facility] BASO % 0.1 % 0.0-2.0 [facility] GRAN # 10.0 K/mm3 2.0-8.00 H [facility] IG# 0.1 K/mm3 0.0-0.2 [facility] LYMPH # 0.7 K/mm3 1.0-5.0 L [facility] MONO # 0.7 K/mm3 0.10-1.20 [facility] EOS # 0.0 K/mm3 0.0-0.5 [facility] BASO # 0.0 K/mm3 0.0-0.2 [facility] ID Date Data Source [id number] 05/12/2020 11:39:[address] [facility] l Progress Note GeneralEncounter:The neida ent was seen and examined, chart reviewed, discussed with staff, all questions were answered. 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 She did frequently tell staff this yesterday as well. She believes that if she had help at home she can take care of herself. I did again review why she is int[facility] hospital with her pneumonia, COPD exacerbation as [...] PO Vital Signs 05/11 05/11 05/11 05/11 05/12 1108 1509 1915 2347 0310 Temp 98.2 [...] No behavior issues were no thomas.Other:Laboratory Tests 05/12 1025 Chemistry Sodium (136 - 145 mmol/L) [...] while on antibiotics to protect GI and HEART DOCTOR floraContinue famotidine for GI prophylaxis.Continue heparin for [...] taper as clinically improves. Continue DuoNeb treatments [id number] as well as albuterol nebulizer treatments as [...] Name Value Range Interpretation Code Description Data [facility] rce(s) Supporting Document(s) ID Date Data Source [id number] 05/12/2020 11:07:00 AM EDT [facility] Name Value Range Interpretation Code Description Data [facility] rce(s) Supporting Document(s) GLUCOSE 154 mg/dL 74-106 H [facility] BLOOD UREA NITROGEN 33 mg/dL 7-18 [facility] CREATININE 1.02 mg/dL 0.6-1.0 H [facility] SODIUM 141 mmol/L 136-145 [facility] POTASSIUM 4.7 mmol/L 3.5-5.1 [facility] CHLORIDE 106 mmol/L 98-107 [facility] CO2 26 mmol/L 21-32 [facility] CALCIUM 8.6 mg/dL 8.5-10.1 [facility] ANION GAP 9.0 mmol/L 5-12 [facility] GLOMERULAR FILTRATION RATE 53 mL/min [facility] GFR IS CALCULATED IN mL/min/1.73m2 STEVENSON L FUNCTION: >90MILDLY DECREASED: 60-89MILDY TO MODERATELY DECREASED: 45-59 MODERATELY TO SEVERELY DECREASED: 30-44SEVERELY DECREASED: 15-29RENAL FAILURE: <15 ID Date Data Source [id number] 05/12/2020 10:32:00 AM EDT [facility] Name Value Range Interpretation Code Description Data [facility] rce(s) Supporting Document(s) WHITE BLOOD COUNT 15.0 K/mm3 4.0-10.0 H [facility] jer RED BLOOD COUNT 3.66 M/mm3 4.00-5.50 L [facility] HEMOGLOBIN 11.0 gm/dL 12.0-16.0 L [facility] HEMATOCRIT 33.1 % 36.0-48.8 L [facility] MEAN CELL VOLUME 90.4 fl 80-96 [facility] MEAN CORPUSCULAR HEMOGLOBIN 30.1 pg 27.0-31.0 [facility] MEAN CORPUSCULAR HGB CONC 33.2 g/dl 32.0-36.0 [facility] RED CELL DISTRIBUTION WIDTH 14.9 % 10.0-14.5 H [facility] PLATELET COUNT 166 K/mm3 172-450 L [facility] MEAN PLATELET VOLUME 9.7 fl 9.0-13.0 [facility] pital GRAN % 93.9 % 50-80.0 H [facility] IG% 0.3 % 0.0-0.2 H [facility] LYMPH % 2.3 % 25.0-50.0 *L [facility] MONO % 3.5 % 2.0-10.0 [facility] EOS % 0.0 % 0-5.0 [facility] BASO % 0.0 % 0.0-2.0 [facility] GRAN # 14.0 K/mm3 2.0-8.00 H [facility] IG# 0.1 K/mm3 0.0-0.2 [facility] LYMPH # 0.3 K/mm3 1.0-5.0 L [facility] MONO # 0.5 K/mm3 0.10-1.20 [facility] EOS # 0.0 K/mm3 0.0-0.5 [facility] BASO # 0.0 K/mm3 0.0-0.2 [facility] ID Date Data Source [id number] 05/11/2020 12:33:00 PM EDT [facility] Progress Note GeneralEncounter:Chart re viewed. Patient [...] pedal edema, peripheral pulses are diminishedNeurologic/Psychiatric alert, cell reliner II-XII nml as tested, normal mood/affect, no [...] Specimen Source Pending Legionella Antigen SENT TO [facility] S. pneumoniae Antigen Pending Organism ID Pending [...] A&PContinue Rocephin and Zithromax. Continue nebulizer treatments [id number] when necessary. Continue O2 and closely monitor [...] rce(s) Supporting Document(s) ID Date Data Source [id number] 05/11/2020 07:07:[address] [facility] l Name Value Range Interpretation Code Description Data Rosa rce(s) Supporting Document(s) TSH 0.951 uIU/mL 0.360-3.740 [facility] ID Date Data Source [id number] 05/11/2020 06:58:00 AM EDT [facility] Name Value Range Interpretation Code Description Data Rosa rce(s) Supporting Document(s) HGBA1C 11.4 % 3.8-5.6 H [facility] Diabetic > or = to 6.5%Prediabetes 5.7-6 .4%Normal <5.7 ESTIMATED AVERAGE GLUCOSE 280.5 mg/dL [facility] ID Date Data Source [id number] 05/11/2020 06:52:00 AM EDT [facility] Name Value Range Interpretation Code Description Data Rosa rce(s) Supporting Document(s) GLUCOSE 113 mg/dL 74-106 H [facility] BLOOD UREA NITROGEN 39 mg/dL 7-18 H [facility] CREATININE 1.34 mg/dL 0.6-1.0 H [facility] SODIUM 140 mmol/L 136-145 [facility] POTASSIUM 4.9 mmol/L 3.5-5.1 [facility] CHLORIDE 103 mmol/L 98-107 [facility] CO2 27 mmol/L 21-32 [facility] CALCIUM 8.3 mg/dL 8.5-10.1 L [facility] ANION GAP 10.0 mmol/L 5-12 [facility] GLOMERULAR FILTRATION RATE 39 mL/min [facility] GFR IS CALCULATED IN mL/min/1.73m2 STEVENSON L FUNCTION: >90MILDLY DECREASED: 60-89MILDY TO MODERATELY DECREASED: 45-59 MODERATELY TO SEVERELY DECREASED: 30-44SEVERELY DECREASED: 15-29RENAL FAILURE: <15 ID Date Data Source [id number] 05/11/2020 06:44:00 AM [facility] Name Value Range Interpretation Code Description Data Rosa rce(s) Supporting Document(s) WHITE BLOOD COUNT 9.3 K/mm3 4.0-10.0 [facility] RED BLOOD COUNT 3.47 M/mm3 4.00-5.50 L [facility] HEMOGLOBIN 10.6 gm/dL 12.0-16.0 [facility] HEMATOCRIT 31.0 % 36.0-48.8 L [facility] MEAN CELL VOLUME 89.3 fl 80-96 [facility] MEAN CORPUSCULAR HEMOGLOBIN 30.5 pg 27.0-31.0 [facility] MEAN CORPUSCULAR HGB CONC 34.2 g/dl 32.0-36.0 [facility] RED CELL DISTRIBUTION WIDTH 14.5 % 10.0-14.5 [facility] PLATELET COUNT 162 K/mm3 172-450 L [facility] MEAN PLATELET VOLUME 9.8 fl 9.0-13.0 [facility] pital GRAN % 92.6 % 50-80.0 H [facility] IG% 0.4 % 0.0-0.2 H [facility] LYMPH % 3.1 % 25.0-50.0 *L [facility] MONO % 3.8 % 2.0-10.0 [facility] EOS % 0.0 % 0-5.0 [facility] BASO % 0.1 % 0.0-2.0 [facility] GRAN # 8.6 K/mm3 2.0-8.00 H [facility] IG# 0.0 K/mm3 0.0-0.2 [facility] LYMPH # 0.3 K/mm3 1.0-5.0 L [facility] MONO # 0.4 K/mm3 0.10-1.20 [facility] EOS # 0.0 K/mm3 0.0-0.5 [facility] BASO # 0.0 K/mm3 0.0-0.2 [facility] ID Date Data Source [id number] 05/14/2020 04:09:00 PM EDT [facility] Name Value Range Interpretation Code Description Data Rosa rce(s) Supporting Document(s) SPECIMEN SOURCE Urine . [facility] STREPTOCOCCUS PEUMONIAE AG Negative Negative [facility] BODY FLUID CULTURE STERILE Not indicated. . [facility] ORGANISM ID Not indicated. . [facility] PLEASE NOTE: Comment . [facility] [employer] standar ds require aculture to be performed on CSF specimens submitted forbacterial antigen testing. (CAP [id number]) Urine specimenswill not be cultured.Performed at: [address] [id number] Director: Ramu Cota MD, Phone: [phone] ID Date Data Source [id number] 05/14/2020 04:05:00 PM EDT [facility] Name Value Range Interpretation Code Description Data Rosa rce(s) Supporting Document(s) Specimen Source Urine [facility] Streptococcus pneumoniae Ag Negative Negative [facility] Body Fluid Culture, Sterile Not indicated. [facility] Organism ID Not indicated. [facility] Please Note: [facility] [employer] standar ds require a culture to beperformed on CSF specimens submitted for bacterial antigen testing.(CAP [id number]) Urine specimens will not be cultured. ID Date Data Source [id number] 05/10/2020 10:19:[address] [facility] l Name Value Range Interpretation Code Description Data Rosa rce(s) Supporting Document(s) LEGIONELLA AG URINE-ANGELES SENT TO [facility] ID Date Data Source [id number] 05/10/2020 10:09:[address] [facility] l Name Value Range Interpretation Code Description Data Rosa rce(s) Supporting Document(s) GLUCOSE 522 mg/dL 74-106 *H [facility] ID Date Data Source [id number] 05/11/2020 04:14:00 PM EDT [facility] jer Is the patient hospitalized ([facility] Y Name Value Range Interpretation Code Description Data Rosa rce(s) Supporting Document(s) L PNEUMO SERO 1 NEGATIVE NEGATIVE N [facility] MANUAL ENTRY RECHECKED Screen for [...] (REFERENCE RANGE= NEGATIVE) ID Date Data Source [id number] 05/10/2020 05:30:00 PM EDT [facility] Name Value Range Interpretation Code Description Data Rosa rce(s) Supporting Document(s) [facility] This [facility] was ordered by [facility] yvonne Lab and reported by [facility] Laboratory. ID Date Data Source [id number] 05/10/2020 05:56:00 PM EDT [facility] jer TSYSORDER [id number] Name Value Range Interpretation Code Description Data Rosa rce(s) Supporting Document(s) COVID-19 NEGATIVE NEGATIVE [facility] Negative results should be treated as [...] are for the indentification of SARS-CoV-2 RNA. EhfHNGI-[id number]-7 RNA is generally detectable in respiratorysamples during the actue phase of infection. ID Date Data Source [id number] 05/10/2020 04:22:[address] [facility] l TSYSORDER [id number] Name Value Range Interpretation Code Description Data Rosa rce(s) Supporting Document(s) TROPONIN I 0.031 ng/mL 0.000-0.056 [facility] ID Date Data Source [id number] 05/10/2020 02:11:00 PM EDT [facility] [...] rce(s) Supporting Document(s) ID Date Data Source [id number] 05/10/2020 01:40:00 PM EDT [facility] [id number] Name Value Range Interpretation Code Description Data Rosa rce(s) Supporting Document(s) URINE RBC 0-2 /hpf 0-3 [facility] URINE WBC 0-2 /hpf 0-5 H [facility] URINE EPITHELIAL CELLS 1+ /hpf 0 [facility] URINE HYALINE CAST 0-2 /LPF 0 [facility] ID Date Data Source [id number] 05/10/2020 01:32:00 PM EDT [facility] TSYSORDER [id number] Name Value Range Interpretation Code Description Data Rosa rce(s) Supporting Document(s) URINE COLOR. [facility] URINE APPEARANCE CLEAR [facility] URINE GLUCOSE (UA) >=1000 mg/dL NEGATIVE [facility] URINE BILIRUBIN NEGATIVE NEGATIVE [facility] URINE KETONE NEGATIVE mg/dL NEGATIVE [facility] SPECIFIC GRAVITY,URINE 1.025 1.005-1.030 [facility] URINE BLOOD NEGATIVE NEGATIVE [facility] PH,URINE 5.5 5.0-9.0 [facility] URINE PROTEIN 4+(>=300) mg/dL NEGATIVE [facility] ital URINE UROBILINOGEN NORMAL(0.2-1) mg/dL 0-1 R [facility] URINE NITRATE NEGATIVE NEGATIVE [facility] URINE LEUKOCYTE ESTERASE NEGATIVE NEGATIVE [facility] ID Date Data Source [id number] 05/16/2020 07:10:00 AM EDT [facility] Name Value Range Interpretation Code Description Data Rosa rce(s) Supporting Document(s) BLDC [facility] ID Date Data Source [id number] 05/10/2020 01:21:00 PM EDT [facility] TSYS[facility] [id number] Name Value Range Interpretation Code Description Data Rosa rce(s) Supporting Document(s) LACTIC ACID 0.9 mmol/L 0.4-2.0 [facility] ID Date Data Source [id number] 05/10/2020 12:51:00 PM EDT [facility] TSYSORDER [id number] Name Value Range Interpretation Code Description Data Rosa rce(s) Supporting Document(s) PH 7.35 7.31-7.41 [facility] VENOUS PCO2 53.1 mmHg 41-51 H [facility] VENOUS PO2 33 mmHg 35-42 L [facility] VENOUS BLODD O2 SATURATION 55.4 % 68-77 L [facility] VENOUS BLOOD HCO3 28.2 meq/L 24.0-25.0 [facility] VENOUS BASE EXCESS 1.9 -3.0-3.0 [facility] VENOUS BLOOD CO2 29.9 mmol/L 23.0-32.0 [facility] ID Date Data Source [id number] 05/16/2020 07:10:00 AM EDT [facility] Name Value Range Interpretation Code Description Data Rosa rce(s) Supporting Document(s) [facility] ID Date Data Source [id number] 05/10/2020 12:59:[address] [facility] l TSYSORDER [id number] Name Value Range Interpretation Code Description Data Rosa rce(s) Supporting Document(s) PARTIAL THROMBOPLASTIN TIME 23.6 SECONDS 21.2-27.3 [facility] ID Date Data Source [id number] 05/10/2020 12:54:[address] [facility] l TSYSORDER [id number] Name Value Range Interpretation Code Description Data Rosa rce(s) Supporting Document(s) PROTHROMBIN TIME (PATIENT) 9.8 SECONDS 9.1-11.6 [facility] INR 0.94 0.87-1.06 [facility] ID Date Data Source [id number] 05/10/2020 12:50:[address] [facility] l TSYSORDER [id number] Name Value Range Interpretation Code Description Data Rosa rce(s) Supporting Document(s) TROPONIN I 0.031 ng/mL 0.000-0.056 [facility] ID Date Data Source [id number] 05/10/2020 12:50:[address] [facility] l TSYSORDER [id number] Name Value Range Interpretation Code Description Data Rosa rce(s) Supporting Document(s) MAGNESIUM 2.2 mg/dL 1.8-2.4 [facility] ID Date Data Source [id number] 05/10/2020 12:31:00 PM EDT [facility] TSYSORDER [id number] Name Value Range Interpretation Code Description Data Rosa rce(s) Supporting Document(s) GLUCOSE 313 mg/dL 74-106 H [facility] BLOOD UREA NITROGEN 33 mg/dL 7-18 H [facility] CREATININE 1.31 mg/dL 0.6-1.0 H [facility] SODIUM 131 mmol/L 136-145 L [facility] POTASSIUM 4.6 mmol/L 3.5-5.1 [facility] CHLORIDE 96 mmol/L 98-107 L [facility] CO2 26 mmol/L 21-32 [facility] CALCIUM 9.6 mg/dL 8.5-10.1 [facility] ANION GAP 9.0 mmol/L 5-12 [facility] GLOMERULAR FILTRATION RATE 40 mL/min [facility] GFR IS CALCULATED IN mL/min/1.73m2 STEVENSON L FUNCTION: >90MILDLY DECREASED: 60-89MILDY TO MODERATELY DECREASED: 45-59 MODERATELY TO SEVERELY DECREASED: 30-44SEVERELY DECREASED: 15-29RENAL FAILURE: <15 AST 19 U/L 15-37 [facility] ALT 32 U/L 12-78 [facility] ALKALINE PHOSPHATASE 97 U/L 46-116 [facility] pital TOTAL BILIRUBIN 0.6 mg/dL 0.2-1.0 [facility] TOTAL PROTEIN 7.2 g/dl 6.4-8.2 [facility] ALBUMIN 3.0 gm/dL 3.4-5.0 L [facility] ID Date Data Source [id number] 05/10/2020 11:59:[address] [facility] l TSYSORDER [id number] Name Value Range Interpretation Code Description Data Rosa rce(s) Supporting Document(s) WHITE BLOOD COUNT 18.2 K/mm3 4.0-10.0 [facility] RED BLOOD COUNT 4.32 M/mm3 4.00-5.50 [facility] HEMOGLOBIN 13.0 gm/dL 12.0-16.0 [facility] HEMATOCRIT 38.4 % 36.0-48.8 [facility] MEAN CELL VOLUME 88.9 fl 80-96 [facility] MEAN CORPUSCULAR HEMOGLOBIN 30.1 pg 27.0-31.0 [facility] MEAN CORPUSCULAR HGB CONC 33.9 g/dl 32.0-36.0 [facility] RED CELL DISTRIBUTION WIDTH 14.8 % 10.0-14.5 H [facility] PLATELET COUNT 182 K/mm3 172-450 [facility] MEAN PLATELET VOLUME 9.6 fl 9.0-13.0 [facility] pital GRAN % 91.7 % 50-80.0 H [facility] IG% 0.3 % 0.0-0.2 H [facility] LYMPH % 2.5 % 25.0-50.0 *L [facility] MONO % 4.3 % 2.0-10.0 [facility] EOS % 1.0 % 0-5.0 [facility] BASO % 0.2 % 0.0-2.0 [facility] GRAN # 16.7 K/mm3 2.0-8.00 *H [facility] IG# 0.1 K/mm3 0.0-0.2 [facility] LYMPH # 0.5 K/mm3 1.0-5.0 L [facility] MONO # 0.8 K/mm3 0.10-1.20 [facility] EOS # 0.2 K/mm3 0.0-0.5 [facility] BASO # 0.0 K/mm3 0.0-0.2 [facility] ID Date Data Source [id number] 02/19/2020 09:38:00 PM EST [facility] Name Value Range Interpretation Code Description Data Rosa rce(s) Supporting Document(s) SARS-CoV-2 (COVID 19) NEGATIVE - SARS-CoV-2 (COVID19) [facility] This lab was ordered by [facility] a nd reported by [facility]. ID Date Data Source [id number] 01/04/2020 02:54:00 PM EST [facility] ([facility], ) Name Value Range Interpretation Code Description Data Rosa rce(s) Supporting Document(s) Gram Stain Laboratory test result Normal (applies to non-n umeric results) [facility], ) QUALITY: GOOD MODERATE EPITHELIAL CELLS MODERATE WBCS MANY GRAM POSITIVE COCCI IN PAIRS, CHAINS AND CLUSTERS MODERATE GRAM POSITIVE RODS MODERATE GRAM NEGATIVE RODS Sputum Culture Laboratory test result Normal (applies to non-numeric results) [facility] ([facility], ) FULL REPORT IN LAB NOTES (eCW and [facility] ). NORMAL KELLI PRESENT ORGANISM 1: YEAST LIKE ORGANISM QUANTITY OF GROWTH FEW ORGANISM 1: YEAST LIKE ORGANISM ID Date Data Source [id number] 01/03/2020 03:12:00 PM EST [facility] ([facility] [...] % 0.0-3.0 [facility] ([facility] [place] % 3.0 % 0.0-5.0 [facility] ([facility] Baso % 0.6 % 0.0-1.0 [facility] ([facility] Immature Granulocyte % 0.5 % 0-3.0 [facility] ([facility] Neutrophils # 14.6 10 1.5-8.5 [facility] ([facility] Nucleated Red Blood Cell % 0.0 % 0-0 [facility] ([facility] [place] # 0.5 10 0.0-0.8 [facility] ([facility] Lymph # 0.9 10 1.5-5.0 [facility] ([facility] Eos # 0.1 10 0.0-0.5 [facility] ([facility] Baso # 0.1 10 0.0-0.2 [facility] ([facility] ID Date Data Source [id number] 01/03/2020 03:12:00 PM EST [facility] ([facility] [...] Little GFR Left</content>
<content>ESRD GFR <15 on BUSINESS SYSTEMS ARCHITECT</content>
<content></content> Carbon Dioxide Level 25 meq/L 21-32 [...] [facility] ID Date Data Source [id number] 01/03/2020 03:12:00 PM EST [facility] ([facility] Name Value Range Interpretation Code Description Data Rosa rce(s) Supporting Document(s) Thyrotropin [Units/volume] in Serum or Plasma 1.340 uIU/ML 0.358-3.74 0 [facility] ([facility] Thyroxine (T4) free [Mass/volume] in Serum or Plasma 1.58 ng/dL 0.76- 1.46 [facility] ([facility] ID Date Data Source [id number] 01/03/2020 03:12:00 PM EST [facility] ([facility] Name Value Range Interpretation Code Description Data Rosa rce(s) Supporting Document(s) Hemoglobin A1c 8.7 % [facility] ([facility] <content>REFERENCE RANGES:</content><br/ ><content></content>
<content><=5.6% NORMAL</content>
<content>5.7-6.4% SUGGESTS IMPAIRED GLUCOSE METABOLISM/PREDIABETIC</content>
<content>>= 6.5% ABNORMAL</content>
<content></content> Estimated Average Glucose 203 mg/dL 60-110 [facility] ([facility] ID Date Data Source [id number] 11/09/2019 03:24:00 PM EDT [facility] ([facility], ) Name Value Range Interpretation Code Description Data Rosa rce(s) Supporting Document(s) Glucose, Fasting 124 mg/dL 70-100 Above high normal M [facility] ([facility]) Creatinine For GFR 1.04 mg/dL 0.55-1.30 Normal (applies to non -numeric results) [facility] ([facility]) Blood Urea Nitrogen 19 mg/dL 7-18 Above high normal [facility] ([facility]) Potassium Serum 5.4 meq/L 3.5-5.1 Above high normal [facility] ([facility]) Sodium Level 138 meq/L 136-145 Normal (applies to non-numeric res ults) [facility] ([facility]) Glomerular Filtration Rate 55.1 Normal (applies to n on-numeric results) [facility] ([facility]) <content>Units are mL/min/1.73 m2</content>
<content></content>
<content>Chronic Kidney Disease Staging per NKF:</content>
<content></content>
<content>Stage I & II GFR >=60 Normal to Mildly Decreased</content>
<content>Stage III GFR 30- 59 Moderately Decreased</content>
<content>Stage IV GFR 15-29 Severely Decreased</content>
<content>Stage V GFR <15 Very Little GFR Left</content>
<content>ESRD GFR <15 on BUSINESS SYSTEMS ARCHITECT</content>
<content></content> Chloride Level 107 meq/L 98-107 Normal (applies to non-numeric r esults) [facility] ([facility]) Anion Gap 7 meq/L 8-16 Below low normal [facility] ( [facility]) Carbon Dioxide Level 24 meq/L 21-32 Normal (applies to non-num jd results) [facility] ([facility]) Calcium Level 9.8 mg/dL 8.8-10.2 Normal (applies to non-numeric re sults) [facility] ([facility]) ID Date Data Source [id number] 11/09/2019 03:24:00 PM EDT [facility] ([facility]) Name Value Range Interpretation Code Description Data Rosa rce(s) Supporting Document(s) White Blood Count 13.6 10 4.0-10.0 Above high normal [facility] ([facility]) Hematocrit 44.8 % 36.0-47.0 Normal (applies to non-numeric resul ts) [facility] ([facility]) Red Blood Count 4.83 10 4.00-5.40 Normal (applies to non-numeric results) [facility] ([facility]) Hemoglobin 14.4 g/dL 12.0-15.5 Normal (applies to non-numeric resul ts) [facility]) Mean Corpuscular Hemoglobin 29.8 pg 27.0-33.0 Norm al (applies to non-numeric results) [facility]) Mean Corpuscular HGB Conc 32.1 g/dL 32.0-36.5 Normal (applies to non-numeric results) [facility]) Mean Corpuscular Volume 92.8 fl 80.0-96.0 Normal ( applies to non-numeric results) [facility] ([facility]) Red Cell Distribution Width 15.0 % 11.5-14.5 Above high normal [facility] ([facility]) Nucleated Red Blood Cell % 0.0 % 0-0 Normal (applies to n on-numeric results) [facility] ([facility]) Platelet Count, Automated 214 10 150-450 Normal (applies to non-numeric results) [facility] ([facility]) Procedure Social History Code Duration Value Status Description Data Source(s ) Smoking 11/24/2020 12:00:00 AM EDT Current Smoker completed Curre nt Smoker eCW1 ([facility]) Smoking 11/24/2020 12:00:00 AM EDT Current Smoker completed Curre nt Smoker eCW1 ([facility]) Smoking 08/18/2020 12:00:00 AM EDT Current Smoker completed Curre nt Smoker eCW1 ([facility]) Smoking 08/18/2020 12:00:00 AM EDT Current Smoker completed Curre nt Smoker eCW1 ([facility]) Smoking 08/18/2020 12:00:00 AM EDT Current Smoker completed Curre nt Smoker eCW1 ([facility]) Smoking 06/30/2020 12:00:00 AM EDT Current Smoker completed Curre nt Smoker eCW1 ([facility]) Smoking 06/30/2020 12:00:00 AM EDT Current Smoker completed Curre nt Smoker eCW1 ([facility]) Smoking 06/30/2020 12:00:00 AM EDT Current Smoker completed Curre nt Smoker eCW1 ([facility]) Smoking 06/30/2020 12:00:00 AM EDT Current Smoker completed Curre nt Smoker eCW1 ([facility]) Smoking 06/30/2020 12:00:00 AM EDT Current Smoker completed Curre nt Smoker eCW1 ([facility]) Smoking 06/30/2020 12:00:00 AM EDT Current Smoker completed Curre nt Smoker eCW1 ([facility]) Smoking 06/30/2020 12:00:00 AM EDT Current Smoker completed Curre nt Smoker eCW1 ([facility]) Smoking 06/30/2020 12:00:00 AM EDT Current Smoker completed Curre nt Smoker eCW1 ([facility]) Smoking 06/30/2020 12:00:00 AM EDT Current Smoker completed Curre nt Smoker eCW1 ([facility]) Smoking 06/30/2020 12:00:00 AM EDT Current Smoker completed Curre nt Smoker eCW1 ([facility]) Smoking 06/30/2020 12:00:00 AM EDT Current Smoker completed Curre nt Smoker eCW1 ([facility]) Smoking 06/30/2020 12:00:00 AM EDT Current Smoker completed Curre nt Smoker eCW1 ([facility]) Smoking 06/30/2020 12:00:00 AM EDT Current Smoker completed Curre nt Smoker eCW1 ([facility]) Smoking 06/30/2020 12:00:00 AM EDT Current Smoker completed Curre nt Smoker eCW1 ([facility]) Smoking 06/30/2020 12:00:00 AM EDT Current Smoker completed Curre nt Smoker eCW1 ([facility]) Smoking 06/25/2020 12:00:00 AM EDT Current Smoker completed Curre nt Smoker eCW1 ([facility]) Vital Signs ID Date Data Source UNK Name Value Range Interpretation Code Description Data Source(s) Body weight 113 [lb_av] 113 [lb_av] eCW1 ([facility]) Body height [in_i] eCW1 ([facility]) Body mass index (BMI) [Ratio] 20.01 kg/m2 20.01 kg/m2 eCW1 ([facility]) Heart rate 96 /min 96 /min eCW1 ([facility]) Respiratory rate 18 /min 18 /min eCW1 ([facility]) Body temperature 97.2 [degF] 97.2 [degF] eCW1 ( [facility]) Systolic blood pressure 128 mm[Hg] 128 mm[Hg] e CW1 ([facility]) Diastolic blood pressure 60 mm[Hg] 60 mm[Hg] eCW1 ([facility]) Systolic blood pressure 130 mm[Hg] 130 mm[Hg] M EDENT ([facility], ) Diastolic blood pressure 80 mm[Hg] 80 mm[Hg] MEDENT ([facility]) Heart rate 102 /min 102 /min [facility] ([facility]) Oxygen saturation in Arterial blood by Pulse oximetry 94 % 94 % [facility] ([facility]) Body height 61.75 [in_i] 61.75 [in_i] [facility] ([facility]) 5'1.75" Body weight 116.00 [lb_av] 116.00 [lb_av] MEDEN T ([facility]) Body mass index (BMI) [Ratio] 21.4 kg/m2 21.4 k g/m2 [facility] ([facility]) [place] body weight 105 [lb_av] 105 [lb_av] MEDEN T ([facility]) Body weight 52.618 kg 52.618 kg [facility] ([facility]) Body surface area Derived from formula 1.51 m2 1.51 m2 [facility] ([facility]) Body mass index (BMI) [Ratio] 20.7 kg/m2 20.7 k g/m2 MEDENT ([facility] Systolic blood pressure 157 mm[Hg] 157 mm[Hg] M EDENT ([facility] Diastolic blood pressure 69 mm[Hg] 69 mm[Hg] MEDENT ([facility] Systolic blood pressure 137 mm[Hg] 137 mm[Hg] M EDENT ([facility] [...] ([facility] 5'3" Body weight 117.00 [lb_av] 117.00 [lb_av] MEDEN T ([facility] Oxygen saturation in Arterial blood by Pulse oximetry 98 % 98 % MED[facility] ([facility] [place] body weight 115 [lb_av] 115 [lb_av] MEDEN T ([facility] Systolic blood pressure 179 mm[Hg] 179 mm[Hg] M EDENT ([facility] Diastolic blood pressure 80 mm[Hg] 80 mm[Hg] MEDENT ([facility] Systolic blood pressure 185 mm[Hg] 185 mm[Hg] M EDENT ([facility] 144/64 Diastolic blood pressure [...] [lb_av] MEDEN T ([facility] [place] body weight 115 [lb_av] 115 [lb_av] MEDEN T ([facility] Oxygen saturation in Arterial blood by Pulse oximetry 95 % 95 % [facility] ([facility] Body mass index (BMI) [Ratio] 21.3 kg/m2 21.3 k g/m2 [facility] ([facility] Body height 61.75 [in_i] 61.75 [in_i] MEDENT ([facility]) 5'1.75" Body weight 122.00 [lb_av] 122.00 [lb_av] MEDEN T ([facility]) Body mass index (BMI) [Ratio] 22.5 kg/m2 22.5 k g/m2 MED[facility] ([facility]) [place] body weight 105 [lb_av] 105 [lb_av] MEDEN T ([facility]) Body weight 55.339 kg 55.339 kg MEDENT ([facility]) Body surface area Derived from formula 1.54 m2 1.54 m2 [facility] Systolic blood pressure 110 mm[Hg] 110 mm[Hg] M [facility] ([facility]) Diastolic blood pressure 58 mm[Hg] 58 mm[Hg] [facility] ([facility]) Heart rate 90 /min 90 /min [facility] ([facility]) Oxygen saturation in Arterial blood by Pulse oximetry 91 % 91 % [facility] ([facility]) Body temperature 97.5 [degF] 97.5 [degF] [facility] ([facility]) Systolic blood pressure 120 mm[Hg] 120 mm[Hg] M [facility] ([facility]) Diastolic blood pressure 60 mm[Hg] 60 mm[Hg] [facility] ([facility]) Body height 61.75 [in_i] 61.75 [in_i] [facility] ([facility]) 5'1.75" Body weight 121.38 [lb_av] 121.38 [lb_av] MEDEN ([facility]) Body mass index (BMI) [Ratio] 22.4 kg/m2 22.4 k g/m2 [facility] ([facility]) [place] body weight 105 [lb_av] 105 [lb_av] MEDEN T ([facility]) Body weight 55.056 kg 55.056 kg [facility] ([facility]) Systolic blood pressure 160 mm[Hg] 160 mm[Hg] [facility] ([facility]) Diastolic blood pressure 70 mm[Hg] 70 mm[Hg] [facility] ([facility]) Body height 61.75 [in_i] 61.75 [in_i] [facility] ([facility]) 5'1.75" Body weight 118.12 [lb_av] 118.12 [lb_av] MEDEN T ([facility]) Body mass index (BMI) [Ratio] 21.8 kg/m2 21.8 k g/m2 [facility] ([facility]) [place] body weight 105 [lb_av] 105 [lb_av] MEDEN T ([facility]) Body weight 53.581 kg 53.581 kg [facility] ([facility], ) Systolic blood pressure 140 mm[Hg] 140 mm[Hg] [...] 98 % MEDENT ([facility] [place] body weight 115 [lb_av] 115 [lb_av] MEDEN T ([facility] Body mass index (BMI) [Ratio] 20.3 kg/m2 20.3 k g/m2 [facility] ([facility] ID Date Data Source [id number] 06/15/2020 02:16:00 PM EDT [facility] Name Value Range Interpretation Code Description Data Source(s) WEIGHT 54 kilos 54 kilos [facility] HEIGHT 170.18 centimeters 170.18 centimeter [facility] WEIGHT 54.1 kilos 54.1 kilos [facility] HEIGHT 170.18 centimeters 170.18 centimeter [facility] WEIGHT 54.09 kilos 54.09 kilos [facility] HEIGHT 170.18 centimeters 170.18 centimeter [facility] ID Date Data Source [id number] 05/18/2020 04:36:50 PM EDT [facility] Hospital Name Value Range Interpretation Code Description Data Source(s) TRANSFER FROM [facility] Ups [facility] ID Date Data Source [id number] 05/24/2020 12:50:00 PM EDT [facility] Name Value Range Interpretation Code Description Data Source(s) WEIGHT 55.9 kilos 55.9 [facility] HEIGHT 160.02 centimeters 160.02 centimeter [facility] WEIGHT 55.8 kilos 55.8 [facility] HEIGHT 160.02 centimeters 160.02 centimeter [facility] ID Date Data Source [id number] 09/21/2020 07:47:00 AM EDT [facility] Name Value Range Interpretation Code Description Data Source(s) WEIGHT 56 kilos 56 [facility] HEIGHT 160.02 centimeters 160.02 centimeter [facility] WEIGHT 55.8 kilos 55.8 [facility] HEIGHT 160.02 centimeters 160.02 centimeter [facility] WEIGHT 51 kilos 51 [facility] HEIGHT 160.02 centimeters 160.02 centimeter [facility] WEIGHT 51.3 kilos 51.3 [facility] HEIGHT 152.4 centimeters 152.4 centimeters [facility] ID Date Data Source [id number] 05/16/2020 08:13:00 PM EDT [facility] Name Value Range Interpretation Code Description Data Source(s) WEIGHT 52 kilos 52 [facility] ID Date Data Source [id number] 05/16/2020 08:13:00 PM EDT [facility] Name Value Range Interpretation Code Description Data Source(s) WEIGHT 56.719336 kilos 56.573032 [facility] HEIGHT 160.02 centimeters 160.02 centimeter [facility] ID Date Data Source [id number] 05/16/2020 08:13:00 PM EDT [facility] Name Value Range Interpretation Code Description Data Source(s) WEIGHT 54 kilos 54 [facility] HEIGHT 160.02 centimeters 160.02 centimeter [facility] Patient Treatment Plan of Care Planned Activity Planned Date Details Description Data Source (s) Nicotine 7 MG/24HR 07/28/2020 12:00:00 AM EDT eCW1 ([facility]) Nicotine 7 MG/24HR 07/28/2020 12:00:00 AM EDT eCW1 ([facility]) Nicotine 7 MG/24HR 07/28/2020 12:00:00 AM EDT eCW1 ([facility]) Nicotine 7 MG/24HR 07/28/2020 12:00:00 AM EDT eCW1 ([facility]) Nicotine 7 MG/24HR 07/28/2020 12:00:00 AM EDT eCW1 ([facility]) Optifoam 4"X4" 07/18/2020 12:00:00 AM EDT eCW1 ([facility]) Optifoam 4"X4" 07/18/2020 12:00:00 AM EDT eCW1 ([facility]) Optifoam 4"X4" 07/18/2020 12:00:00 AM EDT eCW1 ([facility]) Optifoam 4"X4" 07/18/2020 12:00:00 AM EDT eCW1 ([facility]) Optifoam 4"X4" 07/18/2020 12:00:00 AM EDT eCW1 ([facility]) Optifoam 4"X4" 07/18/2020 12:00:00 AM EDT eCW1 ([facility]) Optifoam 4"X4" 07/18/2020 12:00:00 AM EDT eCW1 ([facility]) Acetaminophen 325 MG / Hydrocodone Bitartrate 5 MG Ora l Tablet 06/23/2020 12:00:00 AM EDT eCW1 ([facility]) gabapentin 100 MG Oral Capsule 06/23/2020 12:00:00 AM EDT eCW1 ([facility]) Metformin hydrochloride 500 MG Oral Tablet 06/23/2020 12:00:00 AM E DT eCW1 ([facility]) HM Lidocaine Patch 4 % 06/23/2020 12:00:00 AM EDT eCW1 ([facility]) Alendronic acid 70 MG Oral Tablet 06/23/2020 12:00:00 AM EDT eCW1 ([facility]) Acetaminophen 325 MG / Hydrocodone Bitartrate 5 MG Ora l Tablet 06/23/2020 12:00:00 AM EDT eCW1 ([facility]) gabapentin 100 MG Oral Capsule 06/23/2020 12:00:00 AM EDT eCW1 ([facility]) Metformin hydrochloride 500 MG Oral Tablet 06/23/2020 12:00:00 AM E DT eCW1 ([facility]) HM Lidocaine Patch 4 % 06/23/2020 12:00:00 AM EDT eCW1 ([facility]) Alendronic acid 70 MG Oral Tablet 06/23/2020 12:00:00 AM EDT eCW1 ([facility]) Acetaminophen 325 MG / Hydrocodone Bitartrate 5 MG Ora l Tablet 06/23/2020 12:00:00 AM EDT eCW1 ([facility]) gabapentin 100 MG Oral Capsule 06/23/2020 12:00:00 AM EDT eCW1 ([facility]) Metformin hydrochloride 500 MG Oral Tablet 06/23/2020 12:00:00 AM E DT eCW1 ([facility]) HM Lidocaine Patch 4 % 06/23/2020 12:00:00 AM EDT eCW1 ([facility]) Alendronic acid 70 MG Oral Tablet 06/23/2020 12:00:00 AM EDT eCW1 ([facility]) Acetaminophen 325 MG / Hydrocodone Bitartrate 5 MG Ora l Tablet 06/23/2020 12:00:00 AM EDT eCW1 ([facility]) gabapentin 100 MG Oral Capsule 06/23/2020 12:00:00 AM EDT eCW1 ([facility]) Metformin hydrochloride 500 MG Oral Tablet 06/23/2020 12:00:00 AM E DT eCW1 ([facility]) HM Lidocaine Patch 4 % 06/23/2020 12:00:00 AM EDT eCW1 ([facility]) Alendronic acid 70 MG Oral Tablet 06/23/2020 12:00:00 AM EDT eCW1 ([facility]) Metformin hydrochloride 500 MG Oral Tablet 06/23/2020 12:00:00 AM E DT eCW1 ([facility]) Acetaminophen 325 MG / Hydrocodone Bitartrate 5 MG Ora l Tablet 06/23/2020 12:00:00 AM EDT eCW1 ([facility]) gabapentin 100 MG Oral Capsule 06/23/2020 12:00:00 AM EDT eCW1 ([facility]) HM Lidocaine Patch 4 % 06/23/2020 12:00:00 AM EDT eCW1 ([facility]) Alendronic acid 70 MG Oral Tablet 06/23/2020 12:00:00 AM EDT eCW1 ([facility]) Metformin hydrochloride 500 MG Oral Tablet 06/23/2020 12:00:00 AM E DT eCW1 ([facility]) Acetaminophen 325 MG / Hydrocodone Bitartrate 5 MG Ora l Tablet 06/23/2020 12:00:00 AM EDT eCW1 ([facility]) gabapentin 100 MG Oral Capsule 06/23/2020 12:00:00 AM EDT eCW1 ([facility]) HM Lidocaine Patch 4 % 06/23/2020 12:00:00 AM EDT eCW1 ([facility]) Alendronic acid 70 MG Oral Tablet 06/23/2020 12:00:00 AM EDT eCW1 ([facility]) Metformin hydrochloride 500 MG Oral Tablet 06/23/2020 12:00:00 AM E DT eCW1 ([facility]) Acetaminophen 325 MG / Hydrocodone Bitartrate 5 MG Ora l Tablet 06/23/2020 12:00:00 AM EDT eCW1 ([facility]) gabapentin 100 MG Oral Capsule 06/23/2020 12:00:00 AM EDT eCW1 ([facility]) HM Lidocaine Patch 4 % 06/23/2020 12:00:00 AM EDT eCW1 ([facility]) Acetaminophen 325 MG / Hydrocodone Bitartrate 5 MG Ora l Tablet 06/23/2020 12:00:00 AM EDT eCW1 ([facility]) gabapentin 100 MG Oral Capsule 06/23/2020 12:00:00 AM EDT eCW1 ([facility]) Metformin hydrochloride 500 MG Oral Tablet 06/23/2020 12:00:00 AM E DT eCW1 ([facility]) HM Lidocaine Patch 4 % 06/23/2020 12:00:00 AM EDT eCW1 ([facility]) Alendronic acid 70 MG Oral Tablet 06/23/2020 12:00:00 AM EDT eCW1 ([facility]) Alendronic acid 70 MG Oral Tablet 06/23/2020 12:00:00 AM EDT eCW1 ([facility]) Metformin hydrochloride 500 MG Oral Tablet 06/23/2020 12:00:00 AM E DT eCW1 ([facility]) Acetaminophen 325 MG / Hydrocodone Bitartrate 5 MG Ora l Tablet 06/23/2020 12:00:00 AM EDT eCW1 ([facility]) gabapentin 100 MG Oral Capsule 06/23/2020 12:00:00 AM EDT eCW1 ([facility]) HM Lidocaine Patch 4 % 06/23/2020 12:00:00 AM EDT eCW1 ([facility]) Alendronic acid 70 MG Oral Tablet 06/23/2020 12:00:00 AM EDT eCW1 ([facility]) Alendronic acid 70 MG Oral Tablet 06/23/2020 12:00:00 AM EDT eCW1 ([facility]) Metformin hydrochloride 500 MG Oral Tablet 06/23/2020 12:00:00 AM E DT eCW1 ([facility]) Acetaminophen 325 MG / Hydrocodone Bitartrate 5 MG Ora l Tablet 06/23/2020 12:00:00 AM EDT eCW1 ([facility]) gabapentin 100 MG Oral Capsule 06/23/2020 12:00:00 AM EDT eCW1 ([facility]) HM Lidocaine Patch 4 % 06/23/2020 12:00:00 AM EDT eCW1 ([facility]) Alendronic acid 70 MG Oral Tablet 06/23/2020 12:00:00 AM EDT eCW1 ([facility]) Metformin hydrochloride 500 MG Oral Tablet 06/23/2020 12:00:00 AM E DT eCW1 ([facility]) Acetaminophen 325 MG / Hydrocodone Bitartrate 5 MG Ora l Tablet 06/23/2020 12:00:00 AM EDT eCW1 ([facility]) gabapentin 100 MG Oral Capsule 06/23/2020 12:00:00 AM EDT eCW1 ([facility]) HM Lidocaine Patch 4 % 06/23/2020 12:00:00 AM EDT eCW1 ([facility]) Alendronic acid 70 MG Oral Tablet 06/23/2020 12:00:00 AM EDT eCW1 ([facility]) Acetaminophen 325 MG / Hydrocodone Bitartrate 5 MG Ora l Tablet 06/23/2020 12:00:00 AM EDT eCW1 ([facility]) HM Lidocaine Patch 4 % 06/23/2020 12:00:00 AM EDT eCW1 ([facility]) gabapentin 100 MG Oral Capsule 06/23/2020 12:00:00 AM EDT eCW1 ([facility]) Metformin hydrochloride 500 MG Oral Tablet 06/23/2020 12:00:00 AM E DT eCW1 ([facility]) Alendronic acid 70 MG Oral Tablet 06/23/2020 12:00:00 AM EDT eCW1 ([facility]) Metformin hydrochloride 500 MG Oral Tablet 06/23/2020 12:00:00 AM E DT eCW1 ([facility]) Acetaminophen 325 MG / Hydrocodone Bitartrate 5 MG Ora l Tablet 06/23/2020 12:00:00 AM EDT eCW1 ([facility]) gabapentin 100 MG Oral Capsule 06/23/2020 12:00:00 AM EDT eCW1 ([facility]) HM Lidocaine Patch 4 % 06/23/2020 12:00:00 AM EDT eCW1 ([facility]) Alendronic acid 70 MG Oral Tablet 06/23/2020 12:00:00 AM EDT eCW1 ([facility]) Metformin hydrochloride 500 MG Oral Tablet 06/23/2020 12:00:00 AM E DT eCW1 ([facility]) Acetaminophen 325 MG / Hydrocodone Bitartrate 5 MG Ora l Tablet 06/23/2020 12:00:00 AM EDT eCW1 ([facility]) gabapentin 100 MG Oral Capsule 06/23/2020 12:00:00 AM EDT eCW1 ([facility]) HM Lidocaine Patch 4 % 06/23/2020 12:00:00 AM EDT eCW1 ([facility]) Alendronic acid 70 MG Oral Tablet 06/23/2020 12:00:00 AM EDT eCW1 ([facility]) Metformin hydrochloride 500 MG Oral Tablet 06/23/2020 12:00:00 AM E DT eCW1 ([facility]) Acetaminophen 325 MG / Hydrocodone Bitartrate 5 MG Ora l Tablet 06/23/2020 12:00:00 AM EDT eCW1 ([facility]) gabapentin 100 MG Oral Capsule 06/23/2020 12:00:00 AM EDT eCW1 ([facility]) HM Lidocaine Patch 4 % 06/23/2020 12:00:00 AM EDT eCW1 ([facility]) Alendronic acid 70 MG Oral Tablet 06/23/2020 12:00:00 AM EDT eCW1 ([facility]) Metformin hydrochloride 500 MG Oral Tablet 06/23/2020 12:00:00 AM E DT eCW1 ([facility]) Acetaminophen 325 MG / Hydrocodone Bitartrate 5 MG Ora l Tablet 06/23/2020 12:00:00 AM EDT eCW1 ([facility]) gabapentin 100 MG Oral Capsule 06/23/2020 12:00:00 AM EDT eCW1 ([facility]) HM Lidocaine Patch 4 % 06/23/2020 12:00:00 AM EDT eCW1 ([facility])
--- NOTE | 2020-11-30 16:47 | HPEPDOC ---
General Date of Admission 11/30/2020 Date of Service: Nov 30, 2020 Chief Complaint The patient is a 75-year-old female admitted with a reason for visit of Diff Breathing. Source: Patient, RN/MD History of Present Illness Mrs. Ponce is a 75-year-old female with COPD and diabetes mellitus who returns to [facility] for shortness of breath. Patient was recently admitted on , but then left against medical advice. She went home and smoked about 3 packs of cigarettes (or about 1.5 packs/day). Today, she struggled to breathe. She called the ambulance. She was brought here and given Solu-Medrol and duo nebs which is helped with her breathing. She is saturating at 90% with 4 L. Patient wants to get to the floor soon as possible and to make a look at her previous H&P. Otherwise patient denies any fever or chills, chest pain, or abdominal pain. She told me she felt some dysuria. Patient will be admitted for COPD exacerbation Home Medications Scheduled Amlodipine Besylate (Amlodipine Besylate) 10 Mg Tablet, 10 MG PO QPM, (Reported) TAKES AT 1700 Atorvastatin Calcium (Atorvastatin Calcium) 40 Mg Tablet, 40 MG PO QHS, (Reported) Clopidogrel Bisulfate (Plavix) 75 Mg Tablet, 75 MG PO DAILY, (Reported) Duloxetine Hcl (Duloxetine HCl) 60 Mg Capsule.dr, 60 MG PO DAILY, (Reported) Fluticasone/Vilanterol (Breo Ellipta 200-25 Mcg INH) 1 Each Blst.w.dev, 1 PUFF INH DAILY, (Reported) Gabapentin (Gabapentin) 100 Mg Capsule, 100 MG PO QHS, (Reported) Hydralazine HCl (Hydralazine HCl) 50 Mg Tablet, 50 MG PO BID, (Reported) 0800, 1700 Insulin Detemir (Levemir) 100 Unit/1 Ml Vial, 20 UNITS SC DAILY, (Reported) TAKES AT 1500 Levothyroxine Sodium (Synthroid) 75 Mcg Tablet, 75 MCG PO DAILY, (Reported) Lisinopril (Lisinopril) 20 Mg Tablet, 20 MG PO BID, (Reported) 0800, 1700 Metformin HCl (Metformin HCl) 500 Mg Tablet, 500 MG PO BID, (Reported) 0800, 1700 Scheduled PRN Hydroxyzine HCl (Hydroxyzine HCl) 10 Mg Tablet, 10 MG PO Q8H PRN for ANXIETY, (Reported) Allergies Coded Allergies: Sulfa (Sulfonamide Antibiotics) (Verified Allergy, Mild, RASH, 10/07/20) bacitracin (Verified Allergy, Mild, RASH, 10/07/20) cortisone (Verified Allergy, Mild, RASH, 10/07/20) neomycin (Verified Allergy, Mild, RASH, 10/07/20) polymyxin B (Verified Allergy, Mild, RASH, 10/07/20) red dye (Unverified Allergy, Mild, rash OCCURRED ONCE WITH CAPSULE MED NO OTHER PROBLEMS WIT, 10/07/20) fluoxetine (Unverified Allergy, Unknown, 10/07/20) tramadol (Unverified Allergy, Unknown, 10/07/20) HAS HAD OXYCODONE BEFORE WITHOUT ISSUE Past Medical History Medical History 1. Chronic back pain 2. L4 compression 3. Spinal stenosis 4. Peripheral vascular disease s/p right LE angioplasty with stenting 5. Stage 3 CKD 6. Bladder cancer 7. Severe COPD/emphysema 8. Dyslipidemia 9. Insulin-dependent diabetes mellitus 10. Hypothyroidism 11. Hypertension 12. CHF EF 45-50% and grade 1 diastolic dysfunction 13. Right upper lobe lung mass 14. Anxiety/depression Surgical History 1. Hysterectomy 2. Vaginal tumor removal 3. Bilateral leg stents 4. Lung mass removed 5. Bilateral cataract surgery Family History Father: at 76 year old, history of cerebral artery occlusion with cere bral infarct Mother: at 77 year old, history of KS and DM Social History * Smoker: current smoker A-FIB/CHADSVASC A-FIB History Current/History of A-Fib/PAF?: No Review of Systems Constitutional: Denies: Chills, Fever Eyes: Denies: Vision change ENT: Denies: Sore Throat Skin: Denies: Rash Pulmonary: Reports: Dyspnea, Cough Cardiovascular: Denies: Chest Pain Gastrointestinal: Denies: Abdominal Pain Genitourinary: Reports: Dysuria Hematologic: Denies: Bruising Neurological: Denies: Numbness Psych: Reports: Anxiety, Depression Physical Examination General Exam: Positive: Alert; Negative: Cooperative (agitated) Eye Exam: Negative: Sclera icteric ENT Exam: Positive: Atraumatic Neck Exam: Positive: Supple Chest Exam: Positive: Diminished Heart Exam: Positive: Rate Normal, Regular Rhythm Abdomen Exam: Positive: Normal bowel sounds, Soft; Negative: Tenderness Neuro Exam: Positive: Normal Speech Psych Exam: Positive: Anxiety Vital Signs Vital Signs Date Time Temp Pulse Resp B/P (MAP) Pulse Ox O2 Delivery O2 Flow Rate FiO2 11/30/20 14:45 94 188/83 (118) 98 Nasal Cannula 4.0 11/30/20 14:30 24 11/30/20 13:20 97.3 Laboratory Data Labs 24H Laboratory Tests 2 11/30/20 13:39: Immature Granulocyte % (Auto) 0.5, Neutrophils (%) (Auto) 91.8H, Lymphocytes (%) (Auto) 3.8L, Monocytes (%) (Auto) 2.2, Eosinophils (%) (Auto) 1.4, Basophils (%) (Auto) 0.3, Neutrophils # (Auto) 13.9H, Lymphocytes # (Auto) 0.6L, Monocytes # (Auto) 0.3, Eosinophils # (Auto) 0.2, Basophils # (Auto) 0.1, Nucleated Red Blood Cells % (auto) 0.0, Anion Gap 5L, Glomerular Filtration Rate 51.5, Calcium Level 8.2L, Total Bilirubin 0.3, Direct Bilirubin < 0.1, Aspartate Amino Transf (AST/SGOT) 31, Alanine Aminotransferase (ALT/SGPT) 31, Alkaline Phosphatase 104, Total Creatine Kinase 59, Creatine Kinase MB 4.2H, Creatine Kinase MB Relative Index 7.12H, Troponin I 0.04, Total Protein 5.6L, Albumin 2.5L, Albumin/Globulin Ratio 0.8L, Coronavirus (COVID-19)(PCR) NEGATIVE, Influenza Type A (RT-PCR) NEGATIVE, Influenza Type B (RT-PCR) NEGATIVE, Respiratory Syncytial Virus (PCR) NEGATIVE 11/30/20 15:57: Bedside Glucose (Misc Panel) 408H CBC/BMP Laboratory Tests 11/30/20 13:39 Assessment/Plan Mrs. Ponce is a 75-year-old female with COPD and diabetes mellitus who returns to [facility] for shortness of breath. Patient COPD exacerbations most likely secondary to her smoking. We will put her on steroids, breathing treatments, and antibiotics. In addition she reports some dysuria. Will obtain UA and blood cultures. Plan / VTE VTE Prophylaxis Ordered?: Yes Plan Plan 1. COPD exacerbation -Secondary to smoking -Solumedrol and duonebs -Continue Symbicort -Ceftriaxone and doxycycline day 1 2. Hypertensive urgency -Secondary to medication non-compliance and shortness of breath -Restart amlodipine and lisinopril -Switch hydralazine to PRN 3. Uncontrolled diabetes mellitus -Sliding scale insulin -Continue Levemir 20 units subcu daily -Carbohydrate consistent diet 4. Hyperlipidemia -Continue atorvastatin 5. Hypothyroidism -Continue levothyroxine 6. Anxiety/depression -Continue duloxetine and as needed hydroxyzine 7. Dysuria -Will check a UA 8. DVT ppx -Lovenox COLTON LEIVA DO Nov 30, 2020 16:47
[2020-11-30] MEDS ORDERED: cefTRIAXone SOD 1 GM in D5W MINI-BAG PLUS 50 ML IV SCH (17:00)
[2020-11-30] MEDS ORDERED: HumaLOG INSULIN (NovoLOG) PER UNIT SC SCH ×2 (17:30→21:00)
[2020-11-30] MEDS ORDERED: DOXYCYCLINE HYCLATE 100 MG in D5W MINI-BAG PLUS 100 ML IV SCH (18:00)
--- NOTE | 2020-11-30 19:10 | ECGEPIP ---
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
[2020-11-30] MEDS ORDERED: IPRATROPIUM 0.5MG/ALBUTEROL 2.5MG INH SOL UD 3ML (DUONEB) NEB SCH (20:00)
[2020-11-30] MEDS ORDERED: SYMBICORT 160/4.5MCG INHALER 6GM INH SCH (20:00)
[2020-11-30] MEDS ORDERED: **hydrALAZINE** 50 MG TAB PO SCH (21:00)
[2020-11-30] MEDS ORDERED: methylPREDNISolone 40MG 1ML VIAL IV SCH (21:00)
[2020-11-30] MEDS ORDERED: GABAPENTIN 100 MG CAP PO SCH (21:00)
[2020-11-30] MEDS ORDERED: ATORVASTATIN 20 MG TAB PO SCH (21:00)
[2020-12-01] MEDS ORDERED: LEVOTHYROXINE 75MCG TABLET (0.075MG) PO SCH (06:00)
[2020-12-01] MEDS ORDERED: LEVEMIR (INSULIN DETEMIR) 1 UNITS/0.01ML SC SCH (09:00)
[2020-12-01] MEDS ORDERED: CLOPIDOGREL 75 MG TAB PO SCH (09:00)
[2020-12-01] MEDS ORDERED: ENOXAPARIN 40MG/0.4ML SYRINGE (J1650 PER 10MG) SC SCH (09:00)
[2020-12-01] MEDS ORDERED: DULoxetine 30MG CAPSULE (CYMBALTA) PO SCH (09:00)
== END 2020-11-30 21:06 | disposition left against medical advice (07) | DRG 191 ==
LOC: EDBD 13:07 → M ED 13:07 → M ED INP 15:54
PROVIDERS: ADMIT Internal Medicine; ATTEND Internal Medicine
DX: J44.1 Chronic obstructive pulmonary disease with (acute) exacerbation (principal); I13.0 Hypertensive heart and chronic kidney disease with heart failure and stage 1 through stage 4 chronic kidney disease, or unspecified chronic kidney disease; I50.32 Chronic diastolic (congestive) heart failure; E11.51 Type 2 diabetes mellitus with diabetic peripheral angiopathy without gangrene; F17.210 Nicotine dependence, cigarettes, uncomplicated; I16.0 Hypertensive urgency; N18.30 Chronic kidney disease, stage 3 unspecified; E11.22 Type 2 diabetes mellitus with diabetic chronic kidney disease; E78.5 Hyperlipidemia, unspecified; E03.9 Hypothyroidism, unspecified; R91.8 Other nonspecific abnormal finding of lung field; F41.9 Anxiety disorder, unspecified; F32.9 Major depressive disorder, single episode, unspecified; Z79.4 Long term (current) use of insulin; Z95.820 Peripheral vascular angioplasty status with implants and grafts; Z88.8 Allergy status to other drugs, medicaments and biological substances; Z88.2 Allergy status to sulfonamides; Z98.41 Cataract extraction status, right eye; Z88.5 Allergy status to narcotic agent; Z79.02 Long term (current) use of antithrombotics/antiplatelets; Z98.42 Cataract extraction status, left eye; Z20.822 Contact with and (suspected) exposure to COVID-19; Z79.899 Other long term (current) drug therapy; Z91.048 Other nonmedicinal substance allergy status; R30.0 Dysuria; E11.65 Type 2 diabetes mellitus with hyperglycemia; Z91.14 Patient's other noncompliance with medication regimen; Z91.19 Patient's noncompliance with other medical treatment and regimen

== ENCOUNTER 2020-12-03 03:13 | Inpatient (IN) | payer MEDICARE ==
[~2020-12-03] VITALS: Ht 157.5 cm; Wt 56.0 kg
[~2020-12-03 03:13] MED LIST changes: +MED REC COMMENT
--- OUTSIDE RECORDS SUMMARY | 2020-12-03 03:23 | CCD ---
Author Author [facility] Organization [facility] Address Unknown Phone Unavailable Care Team Providers Care Meat Soaker Name Role Phone Freddie WANG MD Unavailable [...] Unavailable CARMEN DAVIS Unavailable Unavailable Pleskach, Chelly SUPERVISOR [employer] Unavailable Unavailable Pleskach, Chelly SUPERVISOR [employer] Unavailable Unavailable Pleskach, Chelly SUPERVISOR [employer] Unavailable Unavailable Pleskach, Chelly SUPERVISOR [employer] Unavailable Unavailable Pleskach, Chelly SUPERVISOR [employer] Unavailable Unavailable Pleskach, Chelly SUPERVISOR [employer] HAND[employer] Unavailable Unavailable Pleskach, Chelly SUPERVISOR [employer] HAND[employer] Unavailable Unavailable Pleskach, Chelly SUPERVISOR [employer] HANDL[employer] Unavailable Unavailable Pleskach, Chelly SUPERVISOR [employer] HAND[employer] Unavailable Unavailable Pleskach, Chelly SUPERVISOR [employer] HAND[employer] Unavailable Unavailable Pleskach, Chelly SUPERVISOR [employer] HAND[employer] Unavailable Unavailable Pleskach, Chelly SUPERVISOR [employer] HAND[employer] Unavailable Unavailable Pleskach, Chelly SUPERVISOR [employer] HAND[employer] Unavailable Unavailable Pleskach, Chelly SUPERVISOR [employer] HAND[employer] Unavailable Unavailable Pleskach, Chelly SUPERVISOR [employer] HAND[employer] Unavailable Unavailable Pleskach, Chelly SUPERVISOR [employer] HAND[employer] Unavailable Unavailable Pleskach, Chelly SUPERVISOR [employer] HAND[employer] Unavailable Unavailable Pleskach, Chelly SUPERVISOR [employer] HAND[employer] Unavailable Unavailable Pleskach, Chelly SUPERVISOR [employer] Unavailable Unavailable Pleskach, Chelly SUPERVISOR [employer] HAND[employer] Unavailable Unavailable Pleskach, Chelly SUPERVISOR [employer] Unavailable Unavailable Pleskach, Chelly SUPERVISOR [employer] Unavailable Unavailable Pleskach, Chelly SUPERVISOR [employer] Unavailable Unavailable Pleskach, Chelly SUPERVISOR [employer] HAND[employer] Unavailable Unavailable Pleskach, Chelly SUPERVISOR [employer] HAND[employer] Unavailable Unavailable Pleskach, Chelly SUPERVISOR [employer] Unavailable Unavailable Pleskach, Chelly SUPERVISOR [employer] Unavailable Unavailable Pleskach, Chelly SUPERVISOR [employer] HAND[employer] Unavailable Unavailable Pleskach, Chelly SUPERVISOR [employer] HAND[employer] Unavailable Unavailable Pleskach, Chelly SUPERVISOR [employer] HAND[employer] Unavailable Unavailable Pleskach, Chelly SUPERVISOR [employer] HAND[employer] Unavailable Unavailable Pleskach, Chelly SUPERVISOR [employer] HAND[employer] Unavailable Unavailable Pleskach, Chelly SUPERVISOR [employer] HANDL[employer] Unavailable Unavailable Pleskach, Chelly SUPERVISOR [employer] HANDL[employer] Unavailable Unavailable Pleskach, Chelly SUPERVISOR [employer] HAND[employer] Unavailable Unavailable Pleskach, Chelly SUPERVISOR [employer] HAND[employer] Unavailable Unavailable Pleskach, Chelly SUPERVISOR [employer] HANDL[employer] Unavailable Unavailable Pleskach, Chelly SUPERVISOR [employer] Unavailable Unavailable Pleskach, Chelly SUPERVISOR [employer] HAND[employer] Unavailable Unavailable Pleskach, Chelly SUPERVISOR [employer] Unavailable Unavailable Pleskach, Chelly SUPERVISOR [employer] Unavailable Unavailable Pleskach, Chelly SUPERVISOR [employer] Unavailable Unavailable AMEZQUITA, ANSHUL KWABENA SUPERVISOR [employer]-C, MSN Unavailable Unavailab le AMEZQUITA, ANSHUL KWABENA SUPERVISOR [employer]-C, MSN Unavailable Unavailab le AMEZQUITA, ANSHUL KWABENA SUPERVISOR [employer]-C, MSN Unavailable Unavailab le AMEZQUITA, ANSHUL KWABENA SUPERVISOR [employer]-C, MSN Unavailable Unavailab le AMEZQUITA, ANSHUL KWABENA SUPERVISOR [employer]-C, MSN Unavailable Unavailab le AMEZQUITA, ANSHUL KWABENA SUPERVISOR [employer]-C, MSN Unavailable Unavailab le AMEZQUITA, ANSHUL KWABENA SUPERVISOR [employer]-C, MSN Unavailable Unavailab le AMEZQUITA, ANSHUL KWABENA SUPERVISOR [employer]-C, MSN Unavailable Unavailab le AMEZQUITA, ANSHUL KWABENA SUPERVISOR [employer]-C, MSN Unavailable Unavailab le AMEZQUITA, ANSHUL KWABENA SUPERVISOR [employer]-C, MSN Unavailable Unavailab le AMEZQUITA, ANSHUL KWABENA SUPERVISOR [employer]-C, MSN Unavailable Unavailab le AMEZQUITA, ANSHUL KWABENA SUPERVISOR [employer]-C, MSN Unavailable Unavailab le AMEZQUITA, ANSHUL KWABENA SUPERVISOR [employer]-C, MSN Unavailable Unavailab le AMEZQUITA, ANSHUL KWABENA SUPERVISOR [employer]-C, MSN Unavailable Unavailab le AMEZQUITA, ANSHUL KWABENA SUPERVISOR [employer]-C, MSN Unavailable Unavailab le AMEZQUITA, ANSHUL KWABENA SUPERVISOR [employer]-C, MSN Unavailable Unavailab le AMEZQUITA, ANSHUL KWABENA SUPERVISOR [employer]-C, MSN Unavailable Unavailab le AMEZQUITA, ANSHUL KWABENA SUPERVISOR [employer]-C, MSN Unavailable Unavailab le AMEZQUITA, ANSHUL KWABENA SUPERVISOR [employer]-C, MSN Unavailable Unavailab le AMEZQUITA, ANSHUL KWABENA SUPERVISOR [employer]-C, MSN Unavailable Unavailab le AMEZQUITA, ANSHLU KWABENA SUPERVISOR [employer]-C, MSN Unavailable Unavailab le AMEZQUITA, ANSHUL KWABENA SUPERVISOR [employer]-C, MSN Unavailable Unavailab le AMEZQUITA, ANSHUL KWABENA SUPERVISOR [employer]-C, MSN Unavailable Unavailab le AMEZQUITA, ANSHUL KWABENA SUPERVISOR [employer]-C, MSN Unavailable Unavailab le AMEZQUITA, ANSHUL KWABENA SUPERVISOR [employer]-C, MSN Unavailable Unavailab le AMEZQUITA, ANSHUL KWABENA SUPERVISOR [employer]-C, MSN Unavailable Unavailab le AMEZQUITA, ANSHUL KWABENA SUPERVISOR [employer]-C, MSN Unavailable Unavailab le AMEZQUITA, ANSHUL KWABENA SUPERVISOR [employer]-C, MSN Unavailable Unavailab le AMEZQUITA, ANSHUL KWABENA SUPERVISOR [employer]-C, MSN Unavailable Unavailab le AMEZQUITA, ANSHUL KWABENA SUPERVISOR [employer]-C, MSN Unavailable Unavailab le AMEZQUITA, ANSHUL KWABENA SUPERVISOR [employer] HAND[employer]-C, MSN Unavailable Unavailab le AMEZQUITA, ANSHUL KWABENA SUPERVISOR [employer]-C, MSN Unavailable Unavailab le AMEZQUITA, ANSHUL KWABENA SUPERVISOR [employer]-C, MSN Unavailable Unavailab le AMEZQUITA, ANSHUL KWABENA SUPERVISOR [employer] HAND[employer]-C, MSN Unavailable Unavailab le AMEZQUITA, ANSHUL KWABENA SUPERVISOR [employer]-C, MSN Unavailable Unavailab le AMEZQUITA, ANSHUL KWABENA SUPERVISOR [employer]-C, MSN Unavailable Unavailab le AMEZQUITA, ANSHUL KWABENA SUPERVISOR [employer]-C, MSN Unavailable Unavailab le AMEZQUITA, ANSHUL KWABENA SUPERVISOR [employer] HAND[employer]-C, MSN Unavailable Unavailab le AMEZQUITA, ANSHUL KWABENA SUPERVISOR [employer] HAND[employer]-C, MSN Unavailable Unavailab le AMEZQUITA, ANSHUL KWABENA SUPERVISOR [employer] HAND[employer]-C, MSN Unavailable Unavailab le AMEZQUITA, ANSHUL KWABENA SUPERVISOR [employer] HAND[employer]-C, MSN Unavailable Unavailab le AMEZQUITA, ANSHUL KWABENA SUPERVISOR [employer] HANDL[employer]-C, MSN Unavailable Unavailab le AMEZQUITA, ANSHUL KWABENA SUPERVISOR [employer] HANDL[employer]-C, MSN Unavailable Unavailab le AMEZQUITA, ANSHUL KWABENA SUPERVISOR [employer]-C, MSN Unavailable Unavailab le AMEZQUITA, ANSHUL KWABENA SUPERVISOR [employer]-C, MSN Unavailable Unavailab le Selene Cummings MD [...] Petra DO Unavailable Unavailable Demetrio PALMER Unavailable [phone] Demetrio PALMER Unavailable [phone] Demetrio PALMER Unavailable [phone] Demetrio PALMER Unavailable [phone] Demetrio PALMER PETRA Unavailable [phone] MICHAEL WANG MD Unavailable Unavailable [employer] [place], Noe PA Unavailable Unavailable [employer] [place], [place]e PA Unavailable Unavailable [employer] [place], [place] PA Unavailable Unavailable [employer] [place], [place] PA Unavailable Unavailable [employer] [place], [place]e PA Unavailable Unavailable [employer] [place], [place]e PA Unavailable Unavailable [employer] [place], Noe PA Unavailable Unavailable [employer] [place], Noe PA Unavailable Unavailable [employer] [place], Noe PA Unavailable Unavailable [employer] [place], Noe PA Unavailable Unavailable [employer] [place], Noe PA Unavailable Unavailable [employer] [place], Noe PA Unavailable Unavailable [employer] [place], [place]e PA Unavailable Unavailable [employer] [place], Noe PA Unavailable Unavailable [employer] [place], Noe PA Unavailable Unavailable [employer] [place], Noe PA Unavailable Unavailable [employer] [place], [place]e PA Unavailable Unavailable [employer] [place], [place]e PA Unavailable Unavailable [facility], [id number] Unavailable [phone] [facility], [id number] Unavailable [phone] [facility], [id number] Unavailable [phone] [facility], [id number] Unavailable [phone] [facility], [id number] Unavailable [phone] [facility], [id number] Unavailable [phone] [facility], [id number] Unavailable [phone] [facility], [id number] Unavailable [phone] [facility], [id number] Unavailable [phone] [facility], [id number] Unavailable [phone] [facility], [id number] Unavailable [phone] Conway, W Petra RPA-C Unavailable Unavailable Conway, [...] is protected by Article 27-F of the [facility] Public Health law. If you continue you may have access to information: Regarding HIV / AIDS; Provided by facilities licensed or operated by the [facility] Office of Mental Health; or Provided by the [facility] Office for People With Developmental Disabilities. If such information is present, then the following [facility] mandated warning applies: This information [...] law may result in a fine or [place] health care facility sentence or both. A general authorization for the release of medical or other information is NOT sufficient authorization for further disc losure. Allergies and Adverse Reactions Type Description Substance Reaction Status Data Source(s ) Drug allergy red (food color) red (food color) [facility] Drug allergy cort[facility] allergy polymyxin B [facility]yxin [facility] Drug allergy fluoxetine [facility]ox[facility] Drug allergy tramadol tramadol [facility] Drug allergy bacitracin bacitracin [facility] Drug allergy neomycin neomycin [facility] Drug allergy SULFA S[facility]FA [facility] Family History Family Member Name Family Member Gender Family Member Status Date o f Status Description Data Source(s) Unknown Male Problem [facility] ([facility]) () Encounters Encounter Providers Location Date Indications Data Source(s ) [place] [address] [address] 11/27/2020 12:00:00 AM EDT eCW1 (Critical access hospital[facility] [place] [address] [address] 11/23/2020 12:00:00 AM EDT [facility] ([facility] [place] [address] [address] 11/09/2020 12:00:00 AM EDT eCW1 ([facility]) [place] [address] [address] 08/31/2020 12:00:00 AM EDT eCW1 ([facility]) [place] [address] [address] 08/23/2020 12:00:00 AM EDT eCW1 ([facility]) [place] [address] [address] 08/11/2020 12:00:00 AM EDT eCW1 ([facility]) [place] [address] [address] 08/08/2020 12:00:00 AM EDT eCW1 ([facility]) [place] [address] [address] 08/04/2020 12:00:00 AM EDT eCW1 ([facility]) [place] [address] [address] 08/02/2020 12:00:00 AM EDT eCW1 ([facility]) [place] [address] [address] 07/31/2020 12:00:00 AM EDT eCW1 ([facility]) [place] [address] [address] 07/18/2020 12:00:00 AM EDT eCW1 ([facility]) [place] [address] [address] 07/17/2020 12:00:00 AM EDT eCW1 ([facility]) [place] [address] [address] 07/14/2020 12:00:00 AM EDT eCW1 ([facility]) [place] [address] [address] 07/14/2020 12:00:00 AM EDT [facility] [place] [address] [address] 07/12/2020 12:00:00 AM EDT [facility] [place] [address] [address] 07/12/2020 12:00:00 AM EDT [facility]CW[facility] [place] [address] [address] 07/11/2020 12:00:00 AM EDT [facility]CW1 [facility] [place] [address] [address] 06/29/2020 12:00:00 AM EDT [facility]CW1 [facility] [place] [address] [address] 06/28/2020 12:00:00 AM EDT eCW1 ([facility]) [place] [address] [address] 06/23/2020 12:00:00 AM EDT [facility]CW1 ([facility]) [place] [address] [address] 06/19/2020 12:00:00 AM EDT eCW1 ([facility]) Inpatient Attender: GEORGIA DENIS DOAttender : MICHAEL WANG MDAttender: MICHAEL WANG MDAttender: MEHUL ARAIZA MDAttender: MEHUL ARAIZA MDAdmitter: MICHAEL WANG MD ER-2EAST 05/18/2020 07:42:00 PM EDT - 06/11/2020 06:33:[address] [facility] Patient discharged. Outpatient 05/18/2020 04:36:00 PM EDT Pneumonia , sepsis, needs [facility] Pneumonia, sepsis, needs MRI Emergency Attender: Favio ARNETT ttender: FAVIO VILLEGASAttender: STEVE DAVIS EMERGENCY ROOM-ER 05/18/2020 01:32:00 PM EDT - 05/18/2020 06:10:00 PM EDT [facility] Patient discharged. Outpatient Attender: Afvioescobar Villegas DO ER-RAD 05/18/2020 10:45:[address] [facility] Outpatient Attender: Favio Bakari DOConsultant: [facility] p [id number] 05/17/2020 11:52:[address] [facility] Outpatient Attender: Zhanna Cummings MDConsultant: [facility] [id number] 05/17/2020 05:40:[address] [facility] Inpatient Attender: Zhanna Cummings MDAdmitter: Zhanna Cummings MD EMERGENCY ROOM-2N 05/16/2020 08:11:00 PM EDT - 05/18/2020 01:31:00 PM EDT [facility] Patient discharged. Outpatient Attender: OTHER PHYSICIANConsultant: [facility] [id number] 05/10/2020 08:50:[address] [facility] Inpatient Attender: [id number] [facility]_ 23Attender: Petra Ortiz DOAdmitter: [id number] [facility] EMERGENCY ROOM-2N 05/10/2020 05:30:00 PM EDT - 05/16/2020 08:10:00 PM EDT [facility] Patient discharged. Outpatient Attender: JONES BECKETT PAConsultant: [facility] p [id number] 05/10/2020 02:09:[address] [facility] Emergency Attender: JONES RUIZ EMERGENCY ROOM-EMERG ENCY ROOM 05/10/2020 12:22:00 PM EDT - 05/10/2020 12:22:00 PM EDT [facility] Patient discharged. Outpatient Attender: RASTA Ernandez/Alie/[place] 01/04/2020 01:30:00 PM EST [facility] ([facility] Outpatient Attender: Chelly Irizarry [facility] Main Office 01/03/2020 0 1:30:00 PM EST [facility] ([facility] Outpatient Attender: Chelly Irizarry [facility] Main Office 12/20/2019 0 1:30:00 PM EST [facility] ([facility] Outpatient Attender: RASTA RAO DO Robert/[place] 12/15/2019 02:00:00 PM EST [facility] ([facility] Outpatient Attender: Radha Jones/[place]/ [place] 12/02/2019 11:15:00 AM EDT [facility] ([facility]) Unknown [address] [place] [address], [place] [address] 11/30/2019 12:00:00 AM EDT eCW1 (Critical access hospital) Outpatient [facility] 11/29/2019 12:02:06 AM EDT [facility] Outpatient Attender: Michelle Iraheta RPA Robert/[place]/R eindl 10/28/2019 11:45:00 AM EDT [facility] ([facility]) Outpatient Attender: Chelly Irizarry [facility] Main Office 10/20/2019 0 2:45:00 PM EDT [facility] ([facility] Emergency Attender: JONES RUIZ EMERGENCY ROOM-ER 04:10:00 PM [facility] - 02/22/2016 07:48:00 PM [facility] Preadmit Attender: DELANEY SO MDAdmitter: KATHERIN SO MD EMERGENCY ROOM-2N 01/10/2016 09:39:00 AM EST - 10/13/2015 03:46:00 PM [facility] Outpatient Attender: PAU HOLLAND MD EMERGENCY ROOM-LABOT HPROV 12/27/2015 02:51:00 PM EST - 12/27/2015 02:51:00 PM [facility] Emergency Attender: Petra Conway RPA-C EMERGENCY ROOM-ER 1 03:15:00 PM EDT - 11/22/2015 07:20:00 PM [facility] Outpatient Attender: KWABENA CURRAN-C, MSN EMERGENCY RAMSEY M-[id number] 10/30/2015 01:30:00 PM [facility] Inpatient Attender: Noe Anderson PAAdmitter: PETRA ALBRECHTSHANE IN EMERGENCY ROOM-2N 10/19/2015 10:22:00 AM EDT - 10/25/2015 04:15:00 PM [facility] Inpatient Attender: DELANEY SO MDAdmitter: KATHERIN SO MD EMERGENCY ROOM-2N 10/13/2015 03:45:00 PM EDT - 10/19/2015 10:21:00 AM [facility] Immunizations Vaccine Date Status Description Data Source(s) COVID-19 VACCINE Moderna 07/06/2020 12:00:00 AM EDT completed [facility]IS Vaccine Series Complete: NOThis Data was Submitted to [facility] Via [employer]. New in 2011. IIV4 12/15/2019 04:05:00 AM EST completed MEDENT ([facility]) New in 2011. IIV4 12/14/2019 01:32:00 PM EST completed MEDENT ([facility], ) Medications Medication Brand Name Start Date Product Form Dose Route Admi nistrative Instructions Pharmacy Instructions Status Indications Reaction Description Data Source(s) Nicotine 7 MG/24HR Nicotine 7 MG/24HR 07/28/2020 12:00:00 AM EDT 1.0 {patch_to_skin} active Nicotine 7 MG/24 HR eCW1 ([facility]) Nicotine 7 MG/24HR Nicotine 7 MG/24HR 07/28/2020 12:00:00 AM EDT 1.0 {patch_to_skin} active Nicotine 7 MG/24 HR eCW1 ([facility]) Nicotine 7 MG/24HR Nicotine 7 MG/24HR 07/28/2020 12:00:00 AM EDT 1.0 {patch_to_skin} active Nicotine 7 MG/24 HR eCW1 ([facility]) Nicotine 7 MG/24HR Nicotine 7 MG/24HR 07/28/2020 12:00:00 AM EDT 1.0 {patch_to_skin} active Nicotine 7 MG/24 HR eCW1 ([facility]) Nicotine 7 MG/24HR Nicotine 7 MG/24HR 07/28/2020 12:00:00 AM EDT 1.0 {patch_to_skin} active Nicotine 7 MG/24 HR eCW1 ([facility]) Nicotine 7 MG/24HR Nicotine 7 MG/24HR 07/28/2020 12:00:00 AM EDT 1.0 {patch_to_skin} active Nicotine 7 MG/24 HR eCW1 ([facility]) Nicotine 7 MG/24HR Nicotine 7 MG/24HR 07/28/2020 12:00:00 AM EDT 1.0 {patch_to_skin} active Nicotine 7 MG/24 HR eCW1 ([facility]) Nicotine 7 MG/24HR Nicotine 7 MG/24HR 07/28/2020 12:00:00 AM EDT 1.0 {patch_to_skin} active Nicotine 7 MG/24 HR eCW1 ([facility]) Nicotine 7 MG/24HR Nicotine 7 MG/24HR 07/28/2020 12:00:00 AM EDT 1.0 {patch_to_skin} active Nicotine 7 MG/24 HR eCW1 ([facility]) Nicotine 7 MG/24HR Nicotine 7 MG/24HR 07/28/2020 12:00:00 AM EDT 1.0 {patch_to_skin} active Nicotine 7 MG/24 HR eCW1 ([facility]) Optifoam 4"X4" UNK 07/18/2020 12:00:00 AM EDT active Optifoam 4"X4" eCW1 ([facility]) Optifoam 4"X4" UNK 07/18/2020 12:00:00 AM EDT active Optifoam 4"X4" eCW1 ([facility]) Optifoam 4"X4" UNK 07/18/2020 12:00:00 AM EDT active Optifoam 4"X4" eCW1 ([facility]) Optifoam 4"X4" UNK 07/18/2020 12:00:00 AM EDT active Optifoam 4"X4" eCW1 ([facility]) Optifoam 4"X4" UNK 07/18/2020 12:00:00 AM EDT active Optifoam 4"X4" eCW1 ([facility]) Optifoam 4"X4" UNK 07/18/2020 12:00:00 AM EDT active Optifoam 4"X4" eCW1 ([facility]) Optifoam 4"X4" UNK 07/18/2020 12:00:00 AM EDT active Optifoam 4"X4" eCW1 ([facility]) Optifoam 4"X4" UNK 07/18/2020 12:00:00 AM EDT active Optifoam 4"X4" eCW1 ([facility]) Optifoam 4"X4" Optifoam 4"X4" 07/18/2020 12:00:00 AM EDT active Optifoam 4"X4" eCW1 ([facility]) Optifoam 4"X4" UNK 07/18/2020 12:00:00 AM EDT active Optifoam 4"X4" eCW1 ([facility]) Optifoam 4"X4" UNK 07/18/2020 12:00:00 AM EDT active Optifoam 4"X4" eCW1 ([facility]) Optifoam 4"X4" Optifoam 4"X4" 07/18/2020 12:00:00 AM EDT active Optifoam 4"X4" eCW1 ([facility]) Acetaminophen 325 MG / Hydrocodone Marin trate 5 MG Oral Tablet Hydrocodone- Acetaminophen 5-325 MG Hydrocodone-Acetaminophen 5-325 MG 06/23/2020 12:00:00 AM EDT 1.0 {tablet_as_needed} active Hydrocodone-Acetaminophen 5-325 MG eCW1 ([facility]) gabapentin 100 MG Oral Capsule Gabapentin 100 MG Gabapentin 100 MG 06/23/2020 12:00:00 AM EDT 1.0 {capsule} active G abapentin 100 MG eCW1 ([facility]) Acetaminophen 325 MG / Hydrocodone [place] trate 5 MG Oral Tablet HYDROcodone- Acetaminophen 5-325 MG HYDROcodone-Acetaminophen 5-325 MG 06/23/2020 12:00:00 AM EDT 1.0 {tablet_as_needed} active HYDROcodone-Acetaminophen 5-325 MG eCW1 ([facility]) Alendronic acid 70 MG Oral Tablet Alendronate Sodium 7 0 MG Alendronate Sodium 70 MG 06/23/2020 12:00:00 AM EDT active Alendronate Sodium 70 MG eCW1 ([facility]) Acetaminophen 325 MG / Hydrocodone [place] trate 5 MG Oral Tablet HYDROcodone- Acetaminophen 5-325 MG HYDROcodone-Acetaminophen 5-325 MG 06/23/2020 12:00:00 AM EDT 1.0 {tablet_as_needed} active HYDROcodone-Acetaminophen 5-325 MG eCW1 ([facility]) HM Lidocaine Patch 4 % HM Lidocaine Patch 4 % 06/23/2020 12:00:00 AM E DT active HM Lidocaine Patch 4 % eC W1 ([facility]) Metformin hydrochloride 500 MG Oral Tablet Metformin H Cl 500 MG Metformin HCl 500 MG 06/23/2020 12:00:00 AM EDT 1.0 {tablet_with_a_meal} active Metformin HCl 500 MG eCW1 ([facility]) HM Lidocaine Patch 4 % HM Lidocaine Patch 4 % 06/23/2020 12:00:00 AM E DT active HM Lidocaine Patch 4 % eC W1 ([facility]) gabapentin 100 MG Oral Capsule Gabapentin 100 MG Gabapentin 100 MG 06/23/2020 12:00:00 AM EDT 1.0 {capsule} active G abapentin 100 MG eCW1 ([facility]) Acetaminophen 325 MG / Hydrocodone [place] trate 5 MG Oral Tablet HYDROcodone- Acetaminophen 5-325 MG HYDROcodone-Acetaminophen 5-325 MG 06/23/2020 12:00:00 AM EDT 1.0 {tablet_as_needed} active HYDROcodone-Acetaminophen 5-325 MG eCW1 ([facility]) HM Lidocaine Patch 4 % HM Lidocaine Patch 4 % 06/23/2020 12:00:00 AM E DT active eCW1 ([facility]) Alendronic acid 70 MG Oral Tablet Alendronate Sodium 7 0 MG Alendronate Sodium 70 MG 06/23/2020 12:00:00 AM EDT active eCW1 ([facility]) Acetaminophen 325 MG / Hydrocodone [place] trate 5 MG Oral Tablet Hydrocodone- Acetaminophen 5-325 MG Hydrocodone-Acetaminophen 5-325 MG 06/23/2020 12:00:00 AM EDT 1.0 {tablet_as_needed} active Hydrocodone-Acetaminophen 5-325 MG eCW1 ([facility]) Acetaminophen 325 MG / Hydrocodone [place] trate 5 MG Oral Tablet HYDROcodone- Acetaminophen 5-325 MG HYDROcodone-Acetaminophen 5-325 MG 06/23/2020 12:00:00 AM EDT 1.0 {tablet_as_needed} active HYDROcodone-Acetaminophen 5-325 MG eCW1 ([facility]) HM Lidocaine Patch 4 % HM Lidocaine Patch 4 % 06/23/2020 12:00:00 AM E DT active HM Lidocaine Patch 4 % eC W1 ([facility]) Acetaminophen 325 MG / Hydrocodone [place] trate 5 MG Oral Tablet HYDROcodone- Acetaminophen 5-325 MG HYDROcodone-Acetaminophen 5-325 MG 06/23/2020 12:00:00 AM EDT 1.0 {tablet_as_needed} active HYDROcodone-Acetaminophen 5-325 MG eCW1 (Formerly [facility]) Alendronic acid 70 MG Oral Tablet Alendronate Sodium 7 0 MG Alendronate Sodium 70 MG 06/23/2020 12:00:00 AM EDT active Alendronate Sodium 70 MG eCW1 (Formerly [facility]) Acetaminophen 325 MG / Hydrocodone [place] trate 5 MG Oral Tablet HYDROcodone- Acetaminophen 5-325 MG HYDROcodone-Acetaminophen 5-325 MG 06/23/2020 12:00:00 AM EDT 1.0 {tablet_as_needed} active HYDROcodone-Acetaminophen 5-325 MG eCW1 (Formerly [facility]) HM Lidocaine Patch 4 % HM Lidocaine Patch 4 % 06/23/2020 12:00:00 AM E DT active HM Lidocaine Patch 4 % eC W1 (Formerly [facility]) Metformin hydrochloride 500 MG Oral Tablet Metformin H Cl 500 MG Metformin HCl 500 MG 06/23/2020 12:00:00 AM EDT 1.0 {tablet_with_a_meal} active Metformin HCl 500 MG eCW1 (Formerly [facility]) HM Lidocaine Patch 4 % HM Lidocaine Patch 4 % 06/23/2020 12:00:00 AM E DT active HM Lidocaine Patch 4 % eC W1 (Formerly [facility]) HM Lidocaine Patch 4 % HM Lidocaine Patch 4 % 06/23/2020 12:00:00 AM E DT active HM Lidocaine Patch 4 % eC W1 (Formerly [facility]) Metformin hydrochloride 500 MG Oral Tablet metFORMIN H Cl 500 MG metFORMIN HCl 500 MG 06/23/2020 12:00:00 AM EDT 1.0 {tablet_with_a_meal} active metFORMIN HCl 500 MG eCW1 (Formerly [facility]) Alendronic acid 70 MG Oral Tablet Alendronate Sodium 7 0 MG Alendronate Sodium 70 MG 06/23/2020 12:00:00 AM EDT active Alendronate Sodium 70 MG eCW1 (Formerly [facility]) gabapentin 100 MG Oral Capsule Gabapentin 100 MG Gabapentin 100 MG 06/23/2020 12:00:00 AM EDT 1.0 {capsule} active G abapentin 100 MG eCW1 (Formerly [facility]) Metformin hydrochloride 500 MG Oral Tablet Metformin H Cl 500 MG Metformin HCl 500 MG 06/23/2020 12:00:00 AM EDT 1.0 {tablet_with_a_meal} active Metformin HCl 500 MG eCW1 (Formerly [facility]) gabapentin 100 MG Oral Capsule Gabapentin 100 MG Gabapentin 100 MG 06/23/2020 12:00:00 AM EDT 1.0 {capsule} active G abapentin 100 MG eCW1 (Formerly [facility]) HM Lidocaine Patch 4 % HM Lidocaine Patch 4 % 06/23/2020 12:00:00 AM E DT active HM Lidocaine Patch 4 % eC W1 (Formerly [facility]) HM Lidocaine Patch 4 % HM Lidocaine Patch 4 % 06/23/2020 12:00:00 AM E DT active HM Lidocaine Patch 4 % eC W1 (Formerly [facility]) Acetaminophen 325 MG / Hydrocodone Marin trate 5 MG Oral Tablet Hydrocodone- Acetaminophen 5-325 MG Hydrocodone-Acetaminophen 5-325 MG 06/23/2020 12:00:00 AM EDT 1.0 {tablet_as_needed} active eCW1 (Formerly [facility]) HM Lidocaine Patch 4 % HM Lidocaine Patch 4 % 06/23/2020 12:00:00 AM E DT active HM Lidocaine Patch 4 % eC W1 (Formerly [facility]) Metformin hydrochloride 500 MG Oral Tablet metFORMIN H Cl 500 MG metFORMIN HCl 500 MG 06/23/2020 12:00:00 AM EDT 1.0 {tablet_with_a_meal} active metFORMIN HCl 500 MG eCW1 (Formerly [facility]) gabapentin 100 MG Oral Capsule Gabapentin 100 MG Gabapentin 100 MG 06/23/2020 12:00:00 AM EDT 1.0 {capsule} active G abapentin 100 MG eCW1 (Formerly [facility]) gabapentin 100 MG Oral Capsule Gabapentin 100 MG Gabapentin 100 MG 06/23/2020 12:00:00 AM EDT 1.0 {capsule} active eCW1 (Formerly [facility]) Acetaminophen 325 MG / Hydrocodone Marin trate 5 MG Oral Tablet HYDROcodone- Acetaminophen 5-325 MG HYDROcodone-Acetaminophen 5-325 MG 06/23/2020 12:00:00 AM EDT 1.0 {tablet_as_needed} active HYDROcodone-Acetaminophen 5-325 MG eCW1 (Formerly [facility]) Acetaminophen 325 MG / Hydrocodone Marin trate 5 MG Oral Tablet HYDROcodone- Acetaminophen 5-325 MG HYDROcodone-Acetaminophen 5-325 MG 06/23/2020 12:00:00 AM EDT 1.0 {tablet_as_needed} active HYDROcodone-Acetaminophen 5-325 MG eCW1 (Formerly [facility]) Metformin hydrochloride 500 MG Oral Tablet Metformin H Cl 500 MG Metformin HCl 500 MG 06/23/2020 12:00:00 AM EDT 1.0 {tablet_with_a_meal} active Metformin HCl 500 MG eCW1 (Formerly [facility]) Acetaminophen 325 MG / Hydrocodone Marin trate 5 MG Oral Tablet HYDROcodone- Acetaminophen 5-325 MG HYDROcodone-Acetaminophen 5-325 MG 06/23/2020 12:00:00 AM EDT 1.0 {tablet_as_needed} active HYDROcodone-Acetaminophen 5-325 MG eCW1 (Formerly [facility]) Alendronic acid 70 MG Oral Tablet Alendronate Sodium 7 0 MG Alendronate Sodium 70 MG 06/23/2020 12:00:00 AM EDT active Alendronate Sodium 70 MG eCW1 (Formerly [facility]) Alendronic acid 70 MG Oral Tablet Alendronate Sodium 7 0 MG Alendronate Sodium 70 MG 06/23/2020 12:00:00 AM EDT active Alendronate Sodium 70 MG eCW1 (Formerly [facility]) gabapentin 100 MG Oral Capsule Gabapentin 100 MG Gabapentin 100 MG 06/23/2020 12:00:00 AM EDT 1.0 {capsule} active G abapentin 100 MG eCW1 (Formerly [facility]) Alendronic acid 70 MG Oral Tablet Alendronate Sodium 7 0 MG Alendronate Sodium 70 MG 06/23/2020 12:00:00 AM EDT active Alendronate Sodium 70 MG eCW1 (Formerly [facility]) Metformin hydrochloride 500 MG Oral Tablet metFORMIN H Cl 500 MG metFORMIN HCl 500 MG 06/23/2020 12:00:00 AM EDT 1.0 {tablet_with_a_meal} active metFORMIN HCl 500 MG eCW1 (Formerly [facility]) Alendronic acid 70 MG Oral Tablet Alendronate Sodium 7 0 MG Alendronate Sodium 70 MG 06/23/2020 12:00:00 AM EDT active Alendronate Sodium 70 MG eCW1 (Formerly [facility]) Alendronic acid 70 MG Oral Tablet Alendronate Sodium 7 0 MG Alendronate Sodium 70 MG 06/23/2020 12:00:00 AM EDT active Alendronate Sodium 70 MG eCW1 (Formerly [facility]) Acetaminophen 325 MG / Hydrocodone Marin trate 5 MG Oral Tablet HYDROcodone- Acetaminophen 5-325 MG HYDROcodone-Acetaminophen 5-325 MG 06/23/2020 12:00:00 AM EDT 1.0 {tablet_as_needed} active HYDROcodone-Acetaminophen 5-325 MG eCW1 (Formerly [facility]) Metformin hydrochloride 500 MG Oral Tablet metFORMIN H Cl 500 MG metFORMIN HCl 500 MG 06/23/2020 12:00:00 AM EDT 1.0 {tablet_with_a_meal} active metFORMIN HCl 500 MG eCW1 (Formerly [facility]) Alendronic acid 70 MG Oral Tablet Alendronate Sodium 7 0 MG Alendronate Sodium 70 MG 06/23/2020 12:00:00 AM EDT active Alendronate Sodium 70 MG eCW1 (Formerly [facility]) Acetaminophen 325 MG / Hydrocodone Marin trate 5 MG Oral Tablet HYDROcodone- Acetaminophen 5-325 MG HYDROcodone-Acetaminophen 5-325 MG 06/23/2020 12:00:00 AM EDT 1.0 {tablet_as_needed} active HYDROcodone-Acetaminophen 5-325 MG eCW1 (Formerly [facility]) Metformin hydrochloride 500 MG Oral Tablet metFORMIN H Cl 500 MG metFORMIN HCl 500 MG 06/23/2020 12:00:00 AM EDT 1.0 {tablet_with_a_meal} active metFORMIN HCl 500 MG eCW1 (Formerly [facility]) Acetaminophen 325 MG / Hydrocodone Marin trate 5 MG Oral Tablet Hydrocodone- Acetaminophen 5-325 MG Hydrocodone-Acetaminophen 5-325 MG 06/23/2020 12:00:00 AM EDT 1.0 {tablet_as_needed} active Hydrocodone-Acetaminophen 5-325 MG eCW1 (Formerly [facility]) HM Lidocaine Patch 4 % HM Lidocaine Patch 4 % 06/23/2020 12:00:00 AM E DT active HM Lidocaine Patch 4 % eC W1 (Formerly [facility]) Metformin hydrochloride 500 MG Oral Tablet Metformin H Cl 500 MG Metformin HCl 500 MG 06/23/2020 12:00:00 AM EDT 1.0 {tablet_with_a_meal} active Metformin HCl 500 MG eCW1 (Formerly [facility]) gabapentin 100 MG Oral Capsule Gabapentin 100 MG Gabapentin 100 MG 06/23/2020 12:00:00 AM EDT 1.0 {capsule} active G abapentin 100 MG eCW1 (Formerly [facility]) Acetaminophen 325 MG / Hydrocodone Marin trate 5 MG Oral Tablet Hydrocodone- Acetaminophen 5-325 MG Hydrocodone-Acetaminophen 5-325 MG 06/23/2020 12:00:00 AM EDT 1.0 {tablet_as_needed} active Hydrocodone-Acetaminophen 5-325 MG eCW1 (Formerly [facility]) Metformin hydrochloride 500 MG Oral Tablet Metformin H Cl 500 MG Metformin HCl 500 MG 06/23/2020 12:00:00 AM EDT 1.0 {tablet_with_a_meal} active Metformin HCl 500 MG eCW1 (Formerly [facility]) HM Lidocaine Patch 4 % HM Lidocaine Patch 4 % 06/23/2020 12:00:00 AM E DT active HM Lidocaine Patch 4 % eC W1 (Formerly [facility]) Alendronic acid 70 MG Oral Tablet Alendronate Sodium 7 0 MG Alendronate Sodium 70 MG 06/23/2020 12:00:00 AM EDT active Alendronate Sodium 70 MG eCW1 (Formerly [facility]) Alendronic acid 70 MG Oral Tablet Alendronate Sodium 7 0 MG Alendronate Sodium 70 MG 06/23/2020 12:00:00 AM EDT active Alendronate Sodium 70 MG eCW1 (Formerly [facility]) gabapentin 100 MG Oral Capsule Gabapentin 100 MG Gabapentin 100 MG 06/23/2020 12:00:00 AM EDT 1.0 {capsule} active G abapentin 100 MG eCW1 (Formerly [facility]) HM Lidocaine Patch 4 % HM Lidocaine Patch 4 % 06/23/2020 12:00:00 AM E DT active HM Lidocaine Patch 4 % eC W1 (Formerly [facility]) gabapentin 100 MG Oral Capsule Gabapentin 100 MG Gabapentin 100 MG 06/23/2020 12:00:00 AM EDT 1.0 {capsule} active G abapentin 100 MG eCW1 (Formerly [facility]) Alendronic acid 70 MG Oral Tablet Alendronate Sodium 7 0 MG Alendronate Sodium 70 MG 06/23/2020 12:00:00 AM EDT active Alendronate Sodium 70 MG eCW1 (Formerly [facility]) Metformin hydrochloride 500 MG Oral Tablet metFORMIN H Cl 500 MG metFORMIN HCl 500 MG 06/23/2020 12:00:00 AM EDT 1.0 {tablet_with_a_meal} active metFORMIN HCl 500 MG eCW1 (Formerly [facility]) Metformin hydrochloride 500 MG Oral Tablet metFORMIN H Cl 500 MG metFORMIN HCl 500 MG 06/23/2020 12:00:00 AM EDT 1.0 {tablet_with_a_meal} active metFORMIN HCl 500 MG eCW1 (Formerly [facility]) Metformin hydrochloride 500 MG Oral Tablet metFORMIN H Cl 500 MG metFORMIN HCl 500 MG 06/23/2020 12:00:00 AM EDT 1.0 {tablet_with_a_meal} active metFORMIN HCl 500 MG eCW1 (Formerly [facility]) Alendronic acid 70 MG Oral Tablet Alendronate Sodium 7 0 MG Alendronate Sodium 70 MG 06/23/2020 12:00:00 AM EDT active Alendronate Sodium 70 MG eCW1 (Formerly [facility]) Alendronic acid 70 MG Oral Tablet Alendronate Sodium 7 0 MG Alendronate Sodium 70 MG 06/23/2020 12:00:00 AM EDT active Alendronate Sodium 70 MG eCW1 (Formerly [facility]) Acetaminophen 325 MG / Hydrocodone Marin trate 5 MG Oral Tablet Hydrocodone- Acetaminophen 5-325 MG Hydrocodone-Acetaminophen 5-325 MG 06/23/2020 12:00:00 AM EDT 1.0 {tablet_as_needed} active Hydrocodone-Acetaminophen 5-325 MG eCW1 (Formerly [facility]) Alendronic acid 70 MG Oral Tablet Alendronate Sodium 7 0 MG Alendronate Sodium 70 MG 06/23/2020 12:00:00 AM EDT active Alendronate Sodium 70 MG eCW1 (Formerly [facility]) Alendronic acid 70 MG Oral Tablet Alendronate Sodium 7 0 MG Alendronate Sodium 70 MG 06/23/2020 12:00:00 AM EDT active Alendronate Sodium 70 MG eCW1 (Formerly [facility]) Alendronic acid 70 MG Oral Tablet Alendronate Sodium 7 0 MG Alendronate Sodium 70 MG 06/23/2020 12:00:00 AM EDT active Alendronate Sodium 70 MG eCW1 (Formerly [facility]) Alendronic acid 70 MG Oral Tablet Alendronate Sodium 7 0 MG Alendronate Sodium 70 MG 06/23/2020 12:00:00 AM EDT active Alendronate Sodium 70 MG eCW1 (Formerly [facility]) Metformin hydrochloride 500 MG Oral Tablet metFORMIN H Cl 500 MG metFORMIN HCl 500 MG 06/23/2020 12:00:00 AM EDT 1.0 {tablet_with_a_meal} active metFORMIN HCl 500 MG eCW1 (Formerly [facility]) Metformin hydrochloride 500 MG Oral Tablet Metformin H Cl 500 MG Metformin HCl 500 MG 06/23/2020 12:00:00 AM EDT 1.0 {tablet_with_a_meal} active eCW1 (Formerly [facility]) HM Lidocaine Patch 4 % HM Lidocaine Patch 4 % 06/23/2020 12:00:00 AM E DT active HM Lidocaine Patch 4 % eC W1 ([facility]ly [facility]) HM Lidocaine Patch 4 % HM Lidocaine Patch 4 % 06/23/2020 12:00:00 AM E DT active HM Lidocaine Patch 4 % eC W1 (Formerly [facility]) Metformin hydrochloride 500 MG Oral Tablet Metformin H Cl 500 MG Metformin HCl 500 MG 06/23/2020 12:00:00 AM EDT 1.0 {tablet_with_a_meal} active Metformin HCl 500 MG eCW1 (Formerly [facility]) Metformin hydrochloride 500 MG Oral Tablet metFORMIN H Cl 500 MG metFORMIN HCl 500 MG 06/23/2020 12:00:00 AM EDT 1.0 {tablet_with_a_meal} active metFORMIN HCl 500 MG eCW1 (Formerly [facility]) Acetaminophen 325 MG / Hydrocodone Marin trate 5 MG Oral Tablet Hydrocodone- Acetaminophen 5-325 MG Hydrocodone-Acetaminophen 5-325 MG 06/23/2020 12:00:00 AM EDT 1.0 {tablet_as_needed} active Hydrocodone-Acetaminophen 5-325 MG eCW1 (Formerly [facility]) HM Lidocaine Patch 4 % HM Lidocaine Patch 4 % 06/23/2020 12:00:00 AM E DT active HM Lidocaine Patch 4 % eC W1 ([facility]ly [facility]) HM Lidocaine Patch 4 % HM Lidocaine Patch 4 % 06/23/2020 12:00:00 AM E DT active HM Lidocaine Patch 4 % eC W1 ([facility]ly [facility]) gabapentin 100 MG Oral Capsule Gabapentin 100 MG Gabapentin 100 MG 06/23/2020 12:00:00 AM EDT 1.0 {capsule} active G abapentin 100 MG eCW1 (Formerly [facility]) gabapentin 100 MG Oral Capsule Gabapentin 100 MG Gabapentin 100 MG 06/23/2020 12:00:00 AM EDT 1.0 {capsule} active G abapentin 100 MG eCW1 (Formerly [facility]) Alendronic acid 70 MG Oral Tablet Alendronate Sodium 7 0 MG Alendronate Sodium 70 MG 06/23/2020 12:00:00 AM EDT active Alendronate Sodium 70 MG eCW1 (Formerly [facility]) Acetaminophen 325 MG / Hydrocodone Marin trate 5 MG Oral Tablet Hydrocodone- Acetaminophen 5-325 MG Hydrocodone-Acetaminophen 5-325 MG 06/23/2020 12:00:00 AM EDT 1.0 {tablet_as_needed} active Hydrocodone-Acetaminophen 5-325 MG eCW1 (Formerly [facility]) Alendronic acid 70 MG Oral Tablet Alendronate Sodium 7 0 MG Alendronate Sodium 70 MG 06/23/2020 12:00:00 AM EDT active Alendronate Sodium 70 MG eCW1 (Formerly [facility]) gabapentin 100 MG Oral Capsule Gabapentin 100 MG Gabapentin 100 MG 06/23/2020 12:00:00 AM EDT 1.0 {capsule} active G abapentin 100 MG eCW1 (Formerly [facility]) gabapentin 100 MG Oral Capsule Gabapentin 100 MG Gabapentin 100 MG 06/23/2020 12:00:00 AM EDT 1.0 {capsule} active G abapentin 100 MG eCW1 (Formerly [facility]) HM Lidocaine Patch 4 % HM Lidocaine Patch 4 % 06/23/2020 12:00:00 AM E DT active HM Lidocaine Patch 4 % eC W1 ([facility]ly [facility]) gabapentin 100 MG Oral Capsule Gabapentin 100 MG Gabapentin 100 MG 06/23/2020 12:00:00 AM EDT 1.0 {capsule} active G abapentin 100 MG eCW1 (Formerly [facility]) HM Lidocaine Patch 4 % HM Lidocaine Patch 4 % 06/23/2020 12:00:00 AM E DT active HM Lidocaine Patch 4 % eC W1 ([facility]ly [facility]) Metformin hydrochloride 500 MG Oral Tablet metFORMIN H Cl 500 MG metFORMIN HCl 500 MG 06/23/2020 12:00:00 AM EDT 1.0 {tablet_with_a_meal} active metFORMIN HCl 500 MG eCW1 (Formerly [facility]) Metformin hydrochloride 500 MG Oral Tablet Metformin H Cl 500 MG Metformin HCl 500 MG 06/23/2020 12:00:00 AM EDT 1.0 {tablet_with_a_meal} active Metformin HCl 500 MG eCW1 (Formerly [facility]) Acetaminophen 325 MG / Hydrocodone Marin trate 5 MG Oral Tablet Hydrocodone- Acetaminophen 5-325 MG Hydrocodone-Acetaminophen 5-325 MG 06/23/2020 12:00:00 AM EDT 1.0 {tablet_as_needed} active Hydrocodone-Acetaminophen 5-325 MG eCW1 (Formerly [facility]) Metformin hydrochloride 500 MG Oral Tablet metFORMIN H Cl 500 MG metFORMIN HCl 500 MG 06/23/2020 12:00:00 AM EDT 1.0 {tablet_with_a_meal} active metFORMIN HCl 500 MG eCW1 (Formerly [facility]) gabapentin 100 MG Oral Capsule Gabapentin 100 MG Gabapentin 100 MG 06/23/2020 12:00:00 AM EDT 1.0 {capsule} active G abapentin 100 MG eCW1 (Formerly [facility]) Acetaminophen 325 MG / Hydrocodone Marin trate 5 MG Oral Tablet HYDROcodone- Acetaminophen 5-325 MG HYDROcodone-Acetaminophen 5-325 MG 06/23/2020 12:00:00 AM EDT 1.0 {tablet_as_needed} active HYDROcodone-Acetaminophen 5-325 MG eCW1 ([facility]ly [facility]) gabapentin 100 MG Oral Capsule Gabapentin 100 MG Gabapentin 100 MG 06/23/2020 12:00:00 AM EDT 1.0 {capsule} active G abapentin 100 MG eCW1 (Formerly [facility]) HM Lidocaine Patch 4 % HM Lidocaine Patch 4 % 06/23/2020 12:00:00 AM E DT active HM Lidocaine Patch 4 % eC W1 ([facility]ly [facility]) HM Lidocaine Patch 4 % HM Lidocaine Patch 4 % 06/23/2020 12:00:00 AM E DT active HM Lidocaine Patch 4 % eC W1 (Formerly [facility]) TENS Therapy Pain Relief 01/03/2020 12:00:00 [...] type / Coverage type Policy ID Covered green party ID Covered green party's relationship to krause Policy Krause Plan Information [place]ICARE [place] [id number] S [id number] MEDICARE A [id number] Self [id number] A [employer] [id number] S [id number] Medicare P [id number] S [id number] A Today's Options Commercial [id number] Self [id number] WELLCARE [id number] SP [id number] TODAYS OPTIONS [id number] SP [id number] TODAYS OPTIONS [id number] SP [id number] WELLCARE MEDICARE HMO G [id number] Self [id number] MEDICARE C [id number] S [id number] WELLCARE O [id number] S [id number] MEDICARE [id number] SP [id number] Wellcare Commercial [id number] Self [id number] Well Care Medigap Part B [id number] Self [id number] Today's Option Commercial [id number] Self [id number] Wellcare Commercial [id number] Self [id number] Well Care Medigap Part B [id number] Self [id number] Today's Option Commercial [id number] Self [id number] Wellcare Commercial [id number] S elf [id number] Well Care Mediirvine Part B [id number] Self [id number] Today's Option Commercial [id number] Self [id number] ANSI-Health Maintenance Organization ( O) [id number] ANSI-Medicare Part B [id number] Today's Option Commercial [id number] Self [id number] ANSI-Medicare Part B [id number] ANSI-Health Maintenance Organization ( O) [id number] ANSI-Health Maintenance Organization ( O) [id number] ANSI-Medicare Part B [id number] Today's Option Commercial [id number] Self [id number] WELLCARE O [id number] S [id number] Today's Option Commercial [id number] Self [id number] Today's Option Commercial [id number] Self [id number] Today's Option Commercial [id number] Self [id number] Today's Option Commercial [id number] Self [id number] Today's Option Commercial [id number] Self [id number] Today's Option Commercial [id number] Self [id number] TODAYS OPTIONS/[place] O [id number] S [id number] MEDICARE C [id number] S [id number] A TODAYS OPTIONS [id number] SP [id number] MEDICAID [id number] SP [id number] MEDICARE [id number] SP [id number] A Today's Option Commercial [id number] Self [id number] Today's Option Commercial [id number] Self [id number] TODAYS OPTIONS [id number] SP [id number] Medicare [place] Medicare Primary [id number] Self [id number] [place] MEDICARE PART B C [id number] S [id number] MEDICARE PART A -O/P [id number] 18 [id number] [employer], [facility] C [id number] S [id number] WELLCARE [id number] SP [id number] MEDICARE MEDICARE [id number] Self ELA COUTURE MED ICARE WELLCARE [id number] S [id number] WELLCARE [id number] SP [id number] MEDICARE [id number] SP [id number] A MEDICARE [id number] SP [id number] [facility] [id number] S [id number] MEDICARE [id number] SP [id number] [employer] [id number] S [id number] [place]ICARE - [place] [id number] S [id number] Problems, Conditions, and Diagnoses Code Display Name Description Problem Type Effective Dates Data Source(s) Y92.[address] or not applicable UNSPECIF[address] OR NOT APPLICABLE Diagnosis 05/18/2020 07:42:[address] [facility] W19.XXXA Unspecified fall, initial encounter UNSP ECIFIED FALL, INITIAL ENCOUNTER Diagnosis 05/18/2020 07[facility]42[facility]649 Type 2 diabetes mellitus with hypoglycem ia without coma TYPE 2 DIABETES MELLITUS WITH HYPOGLYCEMIA WITHOUT Diagnosis 05/18/2020 07:42:[address] [facility] B37.3 Candidiasis of vulva and vagina CANDIDIASIS OF VULVA A ND VAGINA Diagnosis 05/18/2020 07:42:[address] [facility] D69.6 Thrombocytopenia, unspecified THROMBOCYTOPENIA, UNSPEC IFIED Diagnosis 05/18/2020 07:42:[address] [facility] F19.10 Other psychoactive substance abuse, unco mplicated OTHER PSYCHOACTIVE SUBSTANCE ABUSE, UNCOMPLICATED Diagnosis 05/18/2020 07:42:00 PM EDT [facility] D72.829 Elevated white blood cell count, unspeci fied ELEVATED WHITE BLOOD CELL COUNT, UNSPECIFIED Diagnosis 05/18/2020 07:42:00 PM EDT [facility] M48.00 Spinal stenosis, site unspecified SPINAL STENOSI S, SITE UNSPECIFIED Diagnosis 05/18/2020 07:42:[address] [facility] T38.0X5A Adverse effect of glucocorti coids and synthetic analogues, initial encounter ADVERSE EFFECT OF GLUCOCORT/SYNTH ANALOG, INIT Diagnosis 05/18/2020 07:42:[address] [facility] E11.65 Type 2 diabetes mellitus with hyperglyce lee TYPE 2 DIABETES MELLITUS WITH HYPERGLYCEMIA Diagnosis 05/18/2020 07:42:00 PM EDT [facility] I12.9 Hypertensive chronic kidney disease with stage 1 through stage 4 chronic kidney disease, or unspecified chronic kidney disease HYPERTENSIVE CHRONIC KIDNEY DISEASE W STG 1-4/UNSP Diagnosis 05/18/2020 07:42:00 PM EDT [facility] D63.8 Anemia in other chronic diseases classif ied elsewhere ANEMIA IN OTHER CHRONIC DISEASES CLASSIFIED ELSEWH Diagnosis 05/18/2020 07:42:00 PM ED [facility] E11.51 Type 2 diabetes mellitus wit h diabetic peripheral angiopathy without gangrene TYPE 2 DIABETES W DIABETIC PERIPHERAL ANGIOPATH W/ Diagnosis 05/18/2020 07:42:00 PM [facility] N18.9 Chronic kidney disease, unspecified CHRONIC KIDN EY DISEASE, UNSPECIFIED Diagnosis 05/18/2020 07:42:00 PM [facility] E11.22 Type 2 diabetes mellitus with diabetic c hronic kidney disease TYPE 2 DIABETES MELLITUS W DIABETIC CHRONIC KIDNEY Diagnosis 05/18/2020 07:42:00 PM [facility] 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, not elsewhere classified OT DISORDERS OF PLASMA-PROTEIN METABOLISM, NEC Diagnosis 2020 07:42:00 PM [facility] S22.019A Unspecified fracture of firs t thoracic vertebra, initial encounter for closed fracture UNSP FRACTURE OF FIRST THORACIC VERTEBRA, INIT FOR Diagnosis 05/18/2020 07:42:00 PM [facility] N17.9 Acute kidney failure, unspecified ACUTE KIDNEY F AILURE, UNSPECIFIED Diagnosis 05/18/2020 07:42:00 PM [facility] J44.1 Chronic obstructive pulmonary disease wi th (acute) exacerbation CHRONIC OBSTRUCTIVE PULMONARY DISEASE W (ACUTE) EX Diagnosis 05/18/2020 07:42: 00 PM [facility] J90 Pleural effusion, not elsewhere classifi ed PLEURAL EFFUSION, NOT ELSEWHERE CLASSIFIED Diagnosis 05/18/2020 07:42:00 PM EDT [facility] jer J98.11 Atelectasis ATELECTASIS Diagnosis 05/18/2020 07:42:[address] [facility] N39.0 Urinary tract infection, site not specif ied URINARY TRACT INFECTION, SITE NOT SPECIFIED Diagnosis 05/18/2020 07:42:00 PM EDT [facility] J96.21 Acute and chronic respiratory failure wi th hypoxia ACUTE AND CHRONIC RESPIRATORY FAILURE WITH HYPOXIA Diagnosis 05/18/2020 07:42:[address] [facility] J15.212 Pneumonia due to Methicillin resistant S taphylococcus aureus PNEUMONIA DUE TO METHICILLIN RESISTANT STAPHYLOCOC Diagnosis 05/18/2020 07:42:[address] [facility] S22.029A Unspecified fracture of seco nd thoracic vertebra, initial encounter for closed fracture UNSP FRACTURE OF SECOND THORACIC VERTEBRA, INIT FO Diagnosis 05/18/2020 07:42:[address] [facility] M54.5 Low back pain LOW BACK PAIN Diagnosis 05/18/2020 07:42:[address] [facility] Z99.81 Dependence on supplemental oxygen DEPENDENCE ON SUPPLEMENTAL OXYGEN Diagnosis 05/18/2020 07:42:[address] [facility] R53.81 Other malaise OTHER MALAISE Diagnosis 05/18/2020 07:42:[address] [facility] E03.9 Hypothyroidism, unspecified HYPOTHYROIDISM, UNSPECIFIE D Diagnosis 05/18/2020 07:42:[address] [facility] F41.9 Anxiety disorder, unspecified ANXIETY DISORDER, UNSPEC IFIED Diagnosis 05/18/2020 07:42:[address] [facility] F17.200 Nicotine dependence, unspecified, uncomp licated NICOTINE DEPENDENCE, UNSPECIFIED, UNCOMPLICATED Diagnosis 05/18/2020 07:42:00 PM EDT [facility] E78.5 Hyperlipidemia, unspecified HYPERLIPIDEMIA, UNSPECIFIE D Diagnosis 05/18/2020 07:42:[address] [facility] F32.9 Major depressive disorder, single episod e, unspecified MAJOR DEPRESSIVE DISORDER, SINGLE EPISODE, UNSPECI Diagnosis 05/18/2020 07:42:[address] 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 ANALGESIC Diagnosis 05/18/2020 01:32:00 PM [facility] Z79.02 remote computer terminal operator (current) use of antithromboti cs/antiplatelets [facility] (CURRENT) USE OF ANTITHROMBOTICS/ANTIPLA Diagnosis 05/18/2020 01:32:00 PM [facility] Z79.899 Other intermodal customer service (current) drug therapy O THER [facility] (CURRENT) DRUG THERAPY Diagnosis 05/18/2020 01:32:00 PM [facility] I10 Essential (primary) hypertension ESSENTIAL (PRIMARY) H YPERTENSION Diagnosis 05/18/2020 01:32:00 PM [facility] E11.9 Type 2 diabetes mellitus without complic ations TYPE 2 DIABETES MELLITUS WITHOUT COMPLICATIONS Diagnosis 05/18/2020 01:32:00 PM [facility] jer J44.9 Chronic obstructive pulmonary disease, u nspecified CHRONIC OBSTRUCTIVE PULMONARY DISEASE, UNSPECIFIED Diagnosis 05/18/2020 01:32:00 PM [facility] K59.00 Constipation, unspecified CONSTIPATION, UNSPECIFIED Di agnosis 05/18/2020 01:32:00 PM [facility] N17.9 Acute kidney failure, unspecified ACUTE KIDNEY F AILURE, UNSPECIFIED Diagnosis 05/18/2020 01:32:00 PM [facility] I16.0 HYPERTENSIVE URGENCY HYPERTENSIVE URGENCY Diagnosis 05/18/2020 01:32:00 PM [facility] G93.41 Metabolic encephalopathy METABOLIC ENCEPHALOPATHY Diag nosis 05/18/2020 01:32:00 PM [facility] G89.29 Other chronic pain OTHER CHRONIC PAIN Diagnosis 09/2020 01:32:00 PM [facility] M54.5 Low back pain LOW BACK PAIN Diagnosis 05/18/2020 01:32:00 PM [facility] D72.829 Elevated white blood cell count, unspeci fied ELEVATED WHITE BLOOD CELL COUNT, UNSPECIFIED Diagnosis 05/18/2020 01:32:00 PM [facility] l J18.9 Pneumonia, unspecified organism PNEUMONIA, UNSPECIFIED ORGANISM Diagnosis 05/18/2020 01:32:00 PM [facility] R53.1 Weakness WEAKNESS Diagnosis 05/18/2020 01:32:00 PM [facility] Z45.2 Encounter for adjustment and management of vascular access device ENCOUNTER FOR ADJUSTMENT AND MANAGEMENT OF VAD Diagnosis 021 10:45:00 AM [facility] Z79.899 Other [place] (current) drug therapy 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 N32.89 Other specified disorders of bladder OTH ER SPECIFIED DISORDERS OF BLADDER Diagnosis 05/16/2020 08:11:00 PM [facility] R41.0 Disorientation, unspecified DISORIENTATION, UNSPECIFIE D Diagnosis 05/16/2020 08:11:00 PM [facility] R45.1 Restlessness and agitation RESTLESSNESS AND AGITATION Diagnosis 05/16/2020 08:11:00 PM [facility] K59.03 DRUG INDUCED CONSTIPATION DRUG INDUCED CONSTIPATION Di agnosis 05/16/2020 08:11:00 PM [facility] K21.9 Gastro-esophageal reflux disease without esophagitis GASTRO-ESOPHAGEAL REFLUX DISEASE WITHOUT ESOPHAGIT Diagnosis 05/16/2020 08:11:00 PM [facility] M54.6 Pain in thoracic spine PAIN IN THORACIC SPINE Diagnosi s 05/16/2020 08:11:00 PM [facility] E78.5 Hyperlipidemia, unspecified HYPERLIPIDEMIA, UNSPECIFIE D Diagnosis 05/16/2020 08:11:00 PM [facility] R26.81 Unsteadiness on feet UNSTEADINESS ON FEET Diagnosis 05/16/2020 08:11:00 PM [facility] E11.649 Type 2 diabetes mellitus with hypoglycem ia without coma TYPE 2 DIABETES MELLITUS WITH HYPOGLYCEMIA WITHOUT Diagnosis 05/16/2020 08:11:00 PM [facility] R53.81 Other malaise OTHER MALAISE Diagnosis 05/16/2020 08:11:00 PM [facility] J96.21 Acute and chronic respiratory failure wi th hypoxia ACUTE AND CHRONIC RESPIRATORY FAILURE WITH HYPOXIA Diagnosis 05/16/2020 08:11:00 PM [facility] A41.9 Sepsis, unspecified organism SEPSIS, UNSPECIFIED ORGAN ISM Diagnosis 05/16/2020 08:11:00 PM [facility] J15.212 Pneumonia due to Methicillin resistant S taphylococcus aureus PNEUMONIA DUE TO METHICILLIN RESISTANT STAPHYLOCOCCUS AUREUS Diagnosis 07/2020 08:11:00 PM [facility] Z86.14 Personal history of Methicil criss resistant Staphylococcus aureus infection PERSONAL HISTORY OF METHICILLIN RESIS STAPH INFECT Diagnosis 05/10/2020 05:30:00 PM [facility] Z91.14 Patient's other noncompliance with medic ation regimen PATIENT'S OTHER NONCOMPLIANCE WITH MEDICATION NUZHAT Diagnosis 05/10/2020 05:30:00 PM [facility] Z79.51 penitentiary (current) use of inhaled stero ids [facility] (CURRENT) USE OF INHALED STEROIDS Diagnosis 05/10/2020 [facility]:30:[facility]81 History of falling HISTORY OF FALLING Diagnosis 05:30:00 PM [facility] Z87.448 Personal history of other diseases of ur inary system PERSONAL HISTORY OF OTHER DISEASES OF URINARY SYST Diagnosis 05/10/2020 05:30:00 PM [facility] I12.9 Hypertensive chronic kidney disease with stage 1 through stage 4 chronic kidney disease, or unspecified chronic kidney disease HYPERTENSIVE CHRONIC KIDNEY DISEASE W STG 1-4/UNSP Diagnosis 05/10/2020 05:30:00 PM [facility] K44.9 Diaphragmatic hernia without obstruction or gangrene DIAPHRAGMATIC HERNIA WITHOUT OBSTRUCTION OR GANGRE Diagnosis 05/10/2020 05:30:00 PM [facility] D64.9 Anemia, unspecified ANEMIA, UNSPECIFIED Diagnosis 0 05/10/2020 05:30:00 PM [facility] R59.1 Generalized enlarged lymph nodes GENERALIZED ENL ARGED LYMPH NODES Diagnosis 05/10/2020 05:30:00 PM [facility] F17.210 Nicotine dependence, cigarettes, uncompl icated NICOTINE DEPENDENCE, CIGARETTES, UNCOMPLICATED Diagnosis 05/10/2020 05:30:00 PM [facility] R41.3 Other amnesia OTHER AMNESIA Diagnosis 05/10/2020 05:30:00 PM [facility] I25.84 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 CORONARY ATHEROSCLEROSIS DUE TO CALCIFIED CORONARY Diagnosis 05/10/2020 05:30:0 0 PM [facility] F41.9 Anxiety disorder, unspecified ANXIETY DISORDER, UNSPEC IFIED Diagnosis 05/10/2020 05:30:00 PM [facility] F32.9 Major depressive disorder, single episod e, unspecified MAJOR DEPRESSIVE DISORDER, SINGLE EPISODE, UNSPECI Diagnosis 05/10/2020 05:30:00 PM [facility] E03.9 Hypothyroidism, unspecified HYPOTHYROIDISM, UNSPECIFIE D Diagnosis 05/10/2020 05:30:00 PM [facility] I73.9 Peripheral vascular disease, unspecified PERIPHERAL VASCULAR DISEASE, UNSPECIFIED Diagnosis 05/10/2020 05:30:00 PM [facility] E78.00 PURE HYPERCHOLESTEROLEMIA, UNSPECIFIED P URE HYPERCHOLESTEROLEMIA, UNSPECIFIED Diagnosis 05/10/2020 05:30:00 PM [facility] 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, not elsewhere classified OT DISORDERS OF PLASMA-PROTEIN METABOLISM, NEC Diagnosis 2020 05:30:00 PM [facility] R63.0 Anorexia ANOREXIA Diagnosis 05/10/2020 05:30:00 PM [facility] R80.9 Proteinuria, unspecified PROTEINURIA, UNSPECIFIED Diag nosis 05/10/2020 05:30:00 PM [facility] R26.2 Difficulty in walking, not elsewhere cla ssified DIFFICULTY IN WALKING, NOT ELSEWHERE CLASSIFIED Diagnosis 05/10/2020 05:30:00 PM [facility] M48.061 SPINAL STENOSIS, LUMBAR REGION WITHOUT N EUROGENIC SPINAL STENOSIS, LUMBAR REGION WITHOUT NEUROGENIC Diagnosis 05/10/2020 05:30:00 PM [facility] E11.65 Type 2 diabetes mellitus with hyperglyce lee TYPE 2 DIABETES MELLITUS WITH HYPERGLYCEMIA Diagnosis 05/10/2020 05:30:00 PM [facility] E87.8 Other disorders of electroly te and fluid balance, not elsewhere classified OT DISORDERS OF ELECTROLYTE AND FLUID BALANCE, NE Diagnosis 05/10/2020 05:30:00 PM [facility] R79.89 Other specified abnormal findings of blo od chemistry OTHER SPECIFIED ABNORMAL FINDINGS OF BLOOD DRAW STRING KNOTTER Diagnosis 05/10/2020 05:30:00 PM [facility] E86.0 Dehydration DEHYDRATION Diagnosis 05/10/2020 05:30:00 PM [facility] N18.30 CHRONIC KIDNEY DISEASE, STAGE 3 UNSPECIF IED CHRONIC KIDNEY DISEASE, STAGE 3 UNSPECIFIED Diagnosis 05/10/2020 05:30:00 PM [facility] I31.3 Pericardial effusion (noninflammatory) P ERICARDIAL EFFUSION (NONINFLAMMATORY) Diagnosis 05/10/2020 05:30:00 PM [facility] E87.1 Hypo-osmolality and hyponatremia HYPO-OSMOLALITY AND HYPONATREMIA Diagnosis 05/10/2020 05:30:00 PM [facility] J44.0 Chronic obstructive pulmonar y disease with acute lower respiratory infection CHR OBSTRUCTIVE PULMON DISEASE WITH (ACUTE) LOWER Diagnosis 05/10/2020 05:30:00 PM [facility] Z20.822 CONTACT WITH AND (SUSPECTED) EXPOSURE TO COVID-19 CONTACT WITH AND (SUSPECTED) EXPOSURE TO COVID-19 Diagnosis 05/10/2020 12:22:00 PM [facility] 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 RRENT) 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 OF INSULIN Diagnosis 05/10/2020 12:22:00 PM [facility] R74.02 ELEVATION OF LEVELS OF LACTIC ACID DEHYD ROGENASE [ ELEVATION OF LEVELS OF LACTIC ACID DEHYDROGENASE [ Diagnosis 05/10/2020 12:22:00 PM [facility] E86.1 Hypovolemia HYPOVOLEMIA Diagnosis 05/10/2020 12:22:00 PM [facility] G89.29 [id number] Other chronic pain Problem 06/30/2020 12:00: 00 AM EDT [facility] F17.200 [id number] Current smoker Problem 06/30/2020 12:00:00 A M EDT [facility] I10 Essential hypertension Essential hypertension Problem 06/23/2020 12:00:00 AM EDT [facility] E78.5 [id number] Dyslipidemia Problem 06/23/2020 12:00:00 AM EDT eC1 ([facility]) J43.9 [id number] Pulmonary emphysema, unspecified emphysem a type Problem 06/23/2020 12:00:00 AM EDT eCW1 ([facility]) E03.9 [id number] Hypothyroidism, unspecified type Problem 06/23/2020 12:00:00 AM EDT eCW1 ([facility]) E11.9 [id number] Type 2 diabetes mellitus without complica tions Problem 06/23/2020 12:00:00 AM EDT eC1 ([facility]) Z79.52 [id number] Current chronic use of systemic steroi ds Problem 06/23/2020 12:00:00 AM EDT [facility] F41.8 Anxiety depression Anxiety with depression Problem 06/23/2020 12:00:00 AM EDT [facility] ([facility]) Surgeries/Procedures Procedure Description Date Indications Data Source(s) Assistance with Respiratory Ventilation, Less than 24 Consecutive Hours, Continuous Positive Airway Pressure 06/08/2020 12:00:00 AM [facility] Transfusion of Nonautologous Red Blood C ells into Peripheral Vein, Percutaneous Approach 05/25/2020 12:00:00 AM [facility] Drainage of Bladder with Drainage Device, Via Natural or Art ificial Opening 05/16/2020 12:00:00 AM [facility] Introduction of Analgesics, Hypnotics, S edatives into Subcutaneous Tissue, Percutaneous Approach 05/16/2020 12:00:00 AM [facility] Introduction of Insulin into Subcutaneous Tissue, Percutaneo us Approach 05/10/2020 12:00:00 AM [facility] Introduction of Anti-inflammatory into R espiratory Tract, Via Natural or Artificial Opening 05/10/2020 12:00:00 AM [facility] Muscle Performance Treatment of Musculoskeletal System - Who le Body 05/10/2020 12:00:00 AM [facility] Introduction of Other Therapeutic Substa nce into Peripheral Vein, Percutaneous Approach 05/10/2020 12:00:00 AM [facility] Introduction of Other Anti-infective int o Peripheral Vein, Percutaneous Approach 05/10/2020 12:00:00 AM [facility] Spirometry 12/15/2019 12:00:00 AM JIMENA RODRIGUEZ ([facility], ) Results ID Date Data Source [id number] 11/28/2020 09:18:00 AM EDT [facility] Name Value Range Interpretation Code Description Data Rosa rce(s) Supporting Document(s) SARS-CoV-2 (COVID 19) NEGATIVE - SARS-CoV-2 (COVID19) [facility] This lab was ordered by [facility] a nd reported by [facility]. ID Date Data Source [id number] 11/16/2020 11:12:00 PM EDT [facility] Name Value Range Interpretation Code Description Data Rosa rce(s) Supporting Document(s) SARS coronavirus 2 RNA [Presence] in Res piratory specimen by MIRYAM with probe detection NEGATIVE [facility] This lab was ordered by [facility] a nd reported by [facility]. ID Date Data Source [id number] 11/15/2020 06:35:00 PM EDT [facility] Name Value Range Interpretation Code Description Data Rosa rce(s) Supporting Document(s) SARS coronavirus 2 RNA [Presence] in Res piratory specimen by MIRYAM with probe detection NEGATIVE [facility] This lab was ordered by [facility] a nd reported by [facility]. ID Date Data Source [id number] 11/06/2020 09:28:00 PM EDT [facility] Name Value Range Interpretation Code Description Data Rosa rce(s) Supporting Document(s) SARS-CoV-2 (COVID 19) NEGATIVE - SARS-CoV-2 (COVID19) [facility] This lab was ordered by [facility] a nd reported by [facility]. ID Date Data Source [id number] 11/06/2020 03:54:00 PM EDT [facility] Name Value Range Interpretation Code Description Data Rosa rce(s) Supporting Document(s) SARS-CoV-2 (COVID 19) NEGATIVE - SARS-CoV-2 (COVID19) [facility] This lab was ordered by [facility] a nd reported by [facility]. ID Date Data Source [id number] 11/05/2020 08:28:00 PM EDT [facility] Name Value Range Interpretation Code Description Data Rosa rce(s) Supporting Document(s) SARS coronavirus 2 RNA [Presence] in Res piratory specimen by MIRYAM with probe detection NEGATIVE [facility] This lab was ordered by [facility] a nd reported by [facility]. ID Date Data Source [id number] 10/29/2020 07:58:00 PM EDT [facility] Name Value Range Interpretation Code Description Data Rosa rce(s) Supporting Document(s) SARS coronavirus 2 RNA [Presence] in Res piratory specimen by MIRYAM with probe detection NEGATIVE [facility] This lab was ordered by [facility] a nd reported by [facility]. ID Date Data Source [id number] 10/26/2020 10:19:00 PM EDT [facility] Name Value Range Interpretation Code Description Data Rosa rce(s) Supporting Document(s) SARS coronavirus 2 RNA [Presence] in Res piratory specimen by MIRYAM with probe detection NEGATIVE [facility] This lab was ordered by [facility] a nd reported by [facility]. ID Date Data Source [id number] 10/18/2020 02:44:00 AM EDT [facility] Name Value Range Interpretation Code Description Data Rosa rce(s) Supporting Document(s) SARS-CoV-2 (COVID 19) NEGATIVE - SARS-CoV-2 (COVID19) [facility] This lab was ordered by [facility] a nd reported by [facility]. ID Date Data Source [id number] 10/12/2020 10:15:00 PM EDT [facility] Name Value Range Interpretation Code Description Data Rosa rce(s) Supporting Document(s) SARS coronavirus 2 RNA [Presence] in Res piratory specimen by MIRYAM with probe detection NEGATIVE [facility] This lab was ordered by [facility] a nd reported by [facility]. ID Date Data Source [id number] 10/11/2020 02:34:00 AM EDT [facility] Name Value Range Interpretation Code Description Data Rosa rce(s) Supporting Document(s) SARS coronavirus 2 RNA [Presence] in Res piratory specimen by MIRYAM with probe detection NEGATIVE [facility] This lab was ordered by [facility] a nd reported by [facility]. ID Date Data Source [id number] 10/07/2020 08:36:00 PM EDT [facility] Name Value Range Interpretation Code Description Data Rosa rce(s) Supporting Document(s) SARS-CoV-2 (COVID 19) NEGATIVE - SARS-CoV-2 (COVID19) [facility] This lab was ordered by [facility] a nd reported by [facility]. ID Date Data Source [id number] 10/04/2020 07:47:00 PM EDT [facility] Name Value Range Interpretation Code Description Data Rosa rce(s) Supporting Document(s) SARS coronavirus 2 RNA [Presence] in Res piratory specimen by MIRYAM with probe detection NEGATIVE [facility] This lab was ordered by [facility] a nd reported by [facility]. ID Date Data Source [id number] 10/01/2020 08:07:00 PM EDT [facility] Name Value Range Interpretation Code Description Data Rosa rce(s) Supporting Document(s) SARS coronavirus 2 RNA [Presence] in Res piratory specimen by MIRYAM with probe detection NEGATIVE [facility] This lab was ordered by [facility] a nd reported by [facility]. ID Date Data Source [id number] 09/24/2020 02:20:00 PM EDT [facility] Name Value Range Interpretation Code Description Data Rosa rce(s) Supporting Document(s) SARS coronavirus 2 RNA [Presence] in Res piratory specimen by MIRYAM with probe detection NEGATIVE [facility] This lab was ordered by [facility] a nd reported by [facility]. ID Date Data Source [id number] 09/22/2020 11:07:00 AM EDT [facility] Name Value Range Interpretation Code Description Data Rosa rce(s) Supporting Document(s) SARS-CoV-2 (COVID 19) NEGATIVE - SARS-CoV-2 (COVID19) [facility] This lab was ordered by [facility] a nd reported by [facility]. ID Date Data Source [id number] 09/02/2020 02:38:00 PM EDT [facility] Name Value Range Interpretation Code Description Data Rosa rce(s) Supporting Document(s) SARS-CoV-2 (COVID 19) NEGATIVE - SARS-CoV-2 (COVID19) [facility] This lab was ordered by [facility] a nd reported by [facility]. ID Date Data Source [id number] 08/27/2020 12:00:00 PM EDT [facility] Name Value Range Interpretation Code Description Data Rosa rce(s) Supporting Document(s) SARS coronavirus 2 RNA [Presence] in Res piratory specimen by MIRYAM with probe detection NEGATIVE [facility] This lab was ordered by [facility] a nd reported by [facility]. ID Date Data Source [id number] 08/23/2020 01:29:00 PM EDT [facility] Name Value Range Interpretation Code Description Data Rosa rce(s) Supporting Document(s) SARS-CoV-2 (COVID 19) NEGATIVE - SARS-CoV-2 (COVID19) [facility] This lab was ordered by [facility] a nd reported by [facility]. ID Date Data Source [id number] 08/17/2020 06:30:00 PM EDT [facility] Name Value Range Interpretation Code Description Data Rosa rce(s) Supporting Document(s) SARS coronavirus 2 RNA [Presence] in Res piratory specimen by MIRYAM with probe detection NEGATIVE [facility] This lab was ordered by [facility] a nd reported by [facility]. ID Date Data Source [id number] 08/13/2020 01:19:00 AM EDT [facility] Name Value Range Interpretation Code Description Data Rosa rce(s) Supporting Document(s) SARS coronavirus 2 RNA [Presence] in Res piratory specimen by MIRYAM with probe detection NEGATIVE [facility] This lab was ordered by [facility] a nd reported by [facility]. ID Date Data Source [id number] 06/14/2020 04:54:00 PM EDT [facility] Patient: ELA PONCEatio jayjay Report - [facility].VisitID: [id number] [place] [address] [phone], FRegistration Date/Time: 05/10/2020 11:01 Weight:52.1 kg (E). Height/Length:62 inches (E). BMI:21 PAST HISTORYProblems:Diabetes Mellitus.COPD - Chronic Obstructive Pulmonary Disease.Constipation.Pneumonia.Lung Disease.Hypertension. 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 FAMILY HISTORYNegative. No significant family medical history. (Electronically signed by Sebastian Kingston 05/10/2020 18:30) Name Value Range Interpretation Code Description Data Rosa rce(s) Supporting Document(s) ID Date Data Source [id number] 06/14/2020 03:44:00 PM EDT [facility] Name Value Range Interpretation Code Description Data Rosa rce(s) Supporting Document(s) SARS-CoV-2 (COVID 19) NEGATIVE - SARS-CoV-2 (COVID19) [facility] This lab was ordered by [facility] a nd reported by [facility]. ID Date Data Source [id number] 06/12/2020 11:27:00 AM EDT [address] [id number] NOTE FOLLOW UPPATIENT NAME: KRISELASALLY VIVAR PHYSICIAN: MICHAEL WANG MDAUTHOR: Selma Caballero. DATE: 05/18/20 MR#: [id number] NOTE DATE: 06/12/20 RM#: [id number] TIME: 1127 : 45Progress Note Follow UpSummaryPrescription filled and family and patient's request for Plavix 75 mg p.o.daily levothyroxine 75 mcg p.o. daily hydroxyzine 10 mg 3 times daily as neededfor anxiety. Lisinopril was not filled at the family's request due to renaldysfunction and hyperkalemia. I called and spoke with the pharmacist aboutthis personally at [facility] and this order is being canceled.DATE SIGNED: 06/12/20 Electronically SignedTIME SIGNED: 1127 CR FAJARDO Name Value Range Interpretation Code Description Data Rosa rce(s) Supporting Document(s) ID Date Data Source [id number] 06/11/2020 07:45:00 PM EDT [address] [id number] SUMMARYPATIENT NAME: ELA PONCE MR#: [id number] PHYSICIAN: MICHAEL WANG MDAUTHOR: Georgia Denis DO DATE: 05/18/20 RM#: [id number] DATE: 06/11/20 : 45Summary of HospitalizationReason [facility] MRIHospital CoursePatient is 74 years old female with past medical history significant for COPD,spinal stenosis, anxiety/depression, dyslipidemia, type 2 diabetes, nicotinedependence, hypothyroidism, CKD, peripheral vascular disease and nicotinedependence who was [facility] admitted [facility] for sepsis treatmentsecondary to pneumonia. Patient had extreme deconditioning, unsteady gait andfrequent falls. Patient was noted to have severe tenderness over lumbar andthoracic spine in kassidy setting of worsening CRP and leukocytosis. [facility] out discitis.Upon arrival at the [facility], patient refused MRI andpatient was brought back to [facility]. At [facility], patient becameagitated and combative and patient was given B52. Patient was found to have UTIwith suspision of pylonephritis. Patient started on vanco/zosyn. [facility]. Patient continued on broad spectrum antibiotics whilewaiting for cultures. Attempts of MRI were not successful due to frequentagitation. MRI later was performed and demonstrated no evidence of discitis.Patient's worsening pain was likely due to subacute vertevral body fracture.MRSA screening was negative. Vanco was discontinued. CRP continuesdowntrending. Blood cultures came back negative. Patient was planned fordischarging back to [facility] to continue short-term rehab. However, therewas [...] was transfusedafter obtaining consent. Continuing waiting for [facility] short term rehab bedas per patient's wish. [...] her son agreed for subacute rehab facility [facility] or [facility] if it is available. Case management had sent outreferrals to broaden the search. Unfortunately, patient became unhappy on 06/11/2020 with regarding to her hospitalization stay. Patient contracted her son kinza to [facility] and bring her home. Risks and benefits of AMA explained explicitl yto patient and her son. They voiced understandings of the risks and benefitsbut they insisted on signing out AMA.Decision was made to initially transfer patient to [facility] for an MRI to be doneto rule out discitis and [facility] patient refused the MRI and patient was broughtback to [facility]. At [facility] patient became agitated and somewhatcombative sustained ecchymosis in bilateral upper extremities. Patient had momo given B-52. Decision was made to transfer patient to [facility] for furthermanagement. In route to [facility] again for the second time patient becameagitated. At [facility] patient was also found to have UTI, CT of theabdomen and pelvis showed some questionable/possible pyelonephritis. Patientwas given vancomycin and Zosyn at [facility] and transferred to [facility].When I evaluated patient patient was completely sedated [...] or herniation at the L1-2 level. The O5gaasjp exit the neural foramina without compression.A diffuse [...] CompleteAdult Echocardiogram ReportName: ELA PONCE BStudy Date: 06/08/[id number]: 1945 Gender: FemaleAge: 74 yrs Weight: 119 lbBSA: 1.6 m2 Height: 67 inBP: 125/47 mmHgReason For Study: RESPIRATORY FAILURE WITH PLEURAL EFFUSIONHistory: No prior cardiac interventionOrdering Physician: Parmjit DENISformed By: Shelly Dao, SONJA, GEOFFSProcArmand complete two-dimensional transthoracic echocardiogram was performed(2D, M-mode, [...] Fall8. Chronic obstructive pulmonary disease with hypoxia9. Jtgumffufo27. Rpmqohg79. Anemia of chronic wvfuulv48. Pukxnpfwlef63. HypothyroidismDiagnoses (Other)Past Pertinent History1. Diabetes2. Chronic obstructive pulmonary disease with hypoxia3. Depression4. Spinal stenosis5. Anxiety6. Anemia of chronic disease7. Hypothyroidism8. PVD (peripheral vascular disease)9. Wygswthq36. Chronic anemiaPatient's Discharge ConditionVital SignsVital Signs-LastResult Date [...] taking the following medications:PredniSONE (PREDNISONE) 10 MG OZELOX87 MILLIGRAM Orally DAILYReferralsOrdered ReferralsMIT[facility] First available [id number] [place] [address] [employer] [facility], PT, [employer] INST[employer]ER.Time spent by provider to complete discharge > 30 minutesDATE SIGNED: 06/11/20 Electronically SignedTIME SIGNED: 2126 GEORGIA DENIS DO Name Value Range Interpretation Code Description Data Rosa rce(s) Supporting Document(s) ID Date Data Source [id number] 06/11/2020 06:31:00 PM EDT [facility] Name Value Range Interpretation Code Description Data Rosa rce(s) Supporting Document(s) GLU 128 mg/dL 70-110 [facility] Patients taking Sulfasalazine may have f alsely depressedGlucose levels. Patients taking Sulfapyridine may havefalsely elevated Glucose levels. Patients should be drawnfor Glucose before the initial administration of eitherdrug. BUN 74 mg/dL 7-[address] [facility] CRE 2.170 mg/dL 0.500-1.[address] [facility] GFR 24 mL/min [facility] CHLORIDE 108 mmol/L 99-110 [facility] NA 142 mmol/L 136-147 [facility] POTASSIUM 5.5 mmol/L 3.5-5.[address] [facility] TCO2 24 mmol/L 20-33 [facility] ANION GAP 15.5 10.0-20.0 [facility] CA 8.3 mg/dL 8.3-10.7 [facility] ID Date Data Source [id number] 06/11/2020 04:59:00 PM EDT [facility] Name Value Range Interpretation Code Description Data Rosa rce(s) Supporting Document(s) FGLU 139 mg/dL 70-[address] [facility] ID Date Data Source [id number] 06/11/2020 12:28:00 PM EDT [address] [id number] NOTEPATIENT NAME: ALFREDO PONCENCHE BATTENKEIKO PHYSICIAN: MICHAEL WANG MDAUTHOR: Shankar Denis DO. DATE: 05/18/20 MR#: [id number] NOTE DATE: 06/11/20 RM#: [id number] TIME: 1535 : 45SubjectiveEvents Since Last EntryPatient seen and examined in room today. Patient denies acute complaints.Patient is currently on 3 L nasal cannula, and patient denies any difficultybreathing. Patient does admit that she has not been drinking enough fluid likeshe did few days ago. Denies any fever or chill.ObjectiveVital SignsVital Signs-24 HRS06/10660527 9468 2023 2138 2200Temp 98.7 99.2 98.5Pulse 69 74 77Resp 13 16B/P 125/55 137/50 130/88B/P MeanPulse Ox 96 95O2 Delivery Nasal cannulaO2 Flow Rate 0MPuA90906/11000 0200 0400 0631 0804Temp 97.9 97.9 98.5 97.9Pulse 74 74Resp 17B/P 163/72 163/72B/P MeanPulse Ox 95O2 Delivery Nasal cannulaO2 Flow Rate 3DBeH93706/11168106 7639 0924 0942Temp 97.7Pulse 74 72Resp 20B/P 163/72 163/72 150/63B/P MeanPulse Ox 94O2 Delivery Nasal cannula Nasal cannulaO2 Flow Rate 3L 1DMjI0Dmdesg/OutputIntake/Output Summary 24 hours06/10 1900 06/11 0700Intake Total [...] evaluatePsych/Mental Status unable to evaluateResultsLaboratory DataRecent Labs-24 hours06/10857505 3006 0756 1104ChemistrySodium (136 - 147 mmol/L) 139 [...] 0.1Abs Immat Gran (auto) (0.0 - 0.1 0.59x35G3/uL)Absolute Neuts (auto) (1.2 - 7.6 11.62 Hx10E3/uL)Absolute Lymphs (auto) (1.0 - 3.5 0.27 Lx10E3/uL)Absolute Monos (auto) (0.1 - 1.0 0.78a95G2/uL)Absolute Eos (auto) (0.1 - 0.7 x10E3/uL) 0.00 LAbsolute Basos (auto) (0.0 - 0.1 0.53x66N5/uL)Nucleated RBC % (auto) (0 %) 0Assessment/PlanProblem List1. [...] shortly after the event. Patient landed on [employer]. Patient denied hitting her head.- CT head [...] codeProlong Service Time* 30 minutes of prolong wyis-io-igyy time spent with patient's son, Mr. Braden.* Discussed: Currently medical management and discharge planning.VTE ProphylaxisVTE Prophylaxis: Continue heparin.DATE SIGNED: 06/11/20 Electronically SignedTIME SIGNED: 2126 GEORGIA DENIS DO Name Value Range Interpretation Code Description Data Rosa rce(s) Supporting Document(s) ID Date Data Source [id number] 06/11/2020 11:09:00 AM EDT [facility] Name Value Range Interpretation Code Description Data Rosa rce(s) Supporting Document(s) FGLU 256 mg/dL 70-[address] [facility] ID Date Data Source [id number] 06/11/2020 08:25:00 AM EDT [facility] Name Value Range Interpretation Code Description Data Rosa rce(s) Supporting Document(s) FGLU 384 mg/dL 70-[address] [facility] ID Date Data Source [id number] 06/11/2020 05:53:00 AM [facility] Value Range Interpretation Code Description Data Rosa rce(s) Supporting Document(s) GLU 250 mg/dL 70-[address] [facility] Patients taking Sulfasalazine may have f alsely depressedGlucose levels. Patients taking Sulfapyridine may havefalsely elevated Glucose levels. Patients should be drawnfor Glucose before the initial administration of eitherdrug. BUN 68 mg/dL 7-[address] [facility] CRE 1.860 mg/dL 0.500-1.[address] [facility] GFR 28 mL/min [facility] CHLORIDE 106 mmol/L 99-110 [facility] NA 140 mmol/L 136-147 [facility] POTASSIUM 5.2 mmol/L 3.5-5.[address] [facility] TCO2 26 mmol/L 20-33 [facility] ANION GAP 13.2 10.0-20.0 [facility] CA 8.2 mg/dL 8.3-10.7 [facility] ID Date Data Source [id number] 06/11/2020 05:47:00 AM EDT [facility] jer Name Value Range Interpretation Code Description Data Rosa rce(s) Supporting Document(s) WBC 12.30 x10E3/uL 4.0-10.5 [facility] RBC 3.57 x10E6/uL 4.20-5.40 [facility] Hemoglobin 10.8 g/dL 12.0-16.0 [facility] Hematocrit 34.1 % 37.0-47.0 [facility] MCV 95.5 fL 81.0-99.0 [facility] MCH 30.3 pg 27.0-31.0 [facility] MCHC 31.7 g/dL 32.7-35.6 [facility] RDW 17.2 % 11.5-14.[address] [facility] Platelet count 220 x10E3/uL 150-450 [facility] ital MPV 9.8 fl 6.9-9.[address] [facility] Neutrophils 94.5 % 34-64 H [facility] Lymphocytes 2.2 % 25-45 L [facility] Monocytes 2.4 % 1.7-10.6 N [facility] Eosinophils 0 % 0.4-7.0 L [facility] Basophils 0.1 % 0.1-2.0 [facility] Imm. Gran. 0.8 % 0.1-2.0 N [facility] Abs. Neutro. 11.62 x10E3/uL 1.2-7.6 [facility] Abs. Lymph. 0.27 x10E3/uL 1.0-3.5 [facility] Abs. [place]. 0.30 x10E3/uL 0.1-1.0 [facility] Abs. Eosin. 0.00 x10E3/uL 0.1-0.7 [facility] Abs. Baso. 0.01 x10E3/uL 0.0-0.1 [facility] Abs. Imm. Gran. 0.10 x10E3/uL 0.0-0.1 N [facility] spital ANRBC% 0 % 0 N [facility] DIFFERENTIAL CONFIRMED BY SLIDE REVIEW. ID Date Data Source [id number] 06/11/2020 01:54:00 AM EDT [facility] Patient: ELA PONCE Observatio n Report - [facility].VisitID: [id number] [place] [address] [phone], FRegistrasaint francis healthcare Date/Time: 05/18/2020 13:00 Weight:52.1 kg (E). Height/Length:62 [...] Name Value Range Interpretation Code Description Data [facility] Supporting Document(s) ID Date Data Source [id number] 06/10/2020 08:18:00 PM EDT [facility] Name Value Range Interpretation Code Description Data [facility] Supporting Document(s) GLU 313 mg/dL 70-[address] [facility] Patients taking Sulfasalazine may have f alsely depressedGlucose levels. Patients taking Sulfapyridine may havefalsely elevated Glucose levels. Patients should be drawnfor Glucose before the initial administration of eitherdrug. BUN 65 mg/dL 7-[address] [facility] CRE 2.010 mg/dL 0.500-1.[address] [facility] GFR 26 mL/min [facility] CHLORIDE 105 mmol/L 99-[address] [facility] NA 139 mmol/L 136-147 [facility] POTASSIUM 5.4 mmol/L 3.5-5.[address] [facility] TCO2 26 mmol/L 20-[address] [facility] ANION GAP 13.4 10.0-20.0 [facility] CA 8.0 mg/dL 8.3-10.[address] [facility] ID Date Data Source [id number] 06/10/2020 10:25:00 AM EDT [address] [id number] NOTEPATIENT NAME: ELA PONCE PHYSICIAN: MICHAEL WANG MDAUTHOR: Brendan Shankar. DATE: 05/18/20 MR#: [id number] NOTE DATE: 06/10/20 RM#: [id number] TIME: 1114 [...] MeanPulse Ox 91 95 93O2 DeliveryO2 Flow XtqzXnS82506/[id number] 5306 1999 2015 2200Temp 99.7Pulse 74 73 70 72 73Resp 14 20 13 16B/P 122/44 121/50 128/30 128/30 119/64B/P MeanPulse Ox 94 94 95 94O2 DeliveryO2 Flow LqjmQmA106/30 06/09 06/10 06/10 05/302175 0516 0000 0000 0200Temp 98.4 98.8Pulse 68 72Resp 13 13B/P 130/51 136/56B/P MeanPulse Ox 93 87O2 Delivery Nasal cannulaO2 Flow Rate 9FCuR538/01 06/10616765 1484 0400 0600 0600Temp 97.9 98.3 98.3Pulse 69 72Resp 13 16B/P 142/121 131/58B/P MeanPulse Ox 93 97O2 DeliveryO2 Flow VjluToE045/06/10 05471093 8222 0816 0818 09 03Temp 97.5Pulse 69 72 72Resp 17B/P 134/57 136/72 136/72 136/72B/P MeanPulse Ox 93O2 Delivery Nasal cannulaO2 Flow Rate 8SOuS0Tzpcof/OutputIntake/Output Summary 24 hours04/30 1900 05/01 0700Intake Total 480Output Total 250Balance 230Intake, Oral [...] evaluatePsych/Mental Status unable to evaluateResultsLaboratory DataRecent Labs-24 hours527366UjuoehbgwUkxprc (136 - 147 mmol/L) 138Potassium (3.5 - [...] shortly after the event. Patient landed on [employer]. Patient denied hitting her head.- CT head [...] rce(s) Supporting Document(s) ID Date Data Source [id number] 06/10/2020 06:29:00 AM EDT [facility] Name Value Range Interpretation Code Description Data Rosa rce(s) Supporting Document(s) GLU 326 mg/dL 70-[address] [facility] Patients taking Sulfasalazine may have f alsely depressedGlucose levels. Patients taking Sulfapyridine may havefalsely elevated Glucose levels. Patients should be drawnfor Glucose before the initial administration of eitherdrug. BUN 54 mg/dL 7-[address] [facility] CRE 1.900 mg/dL 0.500-1.[address] [facility] GFR 27 mL/min [facility] CHLORIDE 102 mmol/L 99-110 [facility] NA 138 mmol/L 136-147 [facility] POTASSIUM 4.7 mmol/L 3.5-5.1 [facility] TCO2 29 mmol/L 20-33 [facility] ANION GAP 11.7 10.0-20.0 [facility] CA 8.1 mg/dL 8.3-10.7 [facility] ID Date Data Source [id number] 06/10/2020 06:13:00 AM EDT [facility] Name Value Range Interpretation Code Description Data Rosa rce(s) Supporting Document(s) WBC 10.40 x10E3/uL 4.0-10.5 [facility] RBC 3.28 x10E6/uL 4.20-5.40 [facility] Hemoglobin 9.9 g/dL 12.0-16.0 [facility] Hematocrit 31.3 % 37.0-47.0 [facility] MCV 95.4 fL 81.0-99.0 [facility] MCH 30.2 pg 27.0-31.0 [facility] MCHC 31.6 g/dL 32.7-35.6 [facility] RDW 17.4 % 11.5-14.[address] [facility] Platelet count 200 x10E3/uL 150-450 [facility] ital MPV 10.0 fl 6.9-9.[address] [facility] Neutrophils 96.1 % 34-[address] [facility] Lymphocytes 2.7 % 25-[address] [facility] Monocytes 0.7 % 1.7-10.6 [facility] Eosinophils 0 % 0.4-7.0 [facility] Basophils 0 % 0.1-2.0 L [facility] Imm. Gran. 0.5 % 0.1-2.0 N [facility] Abs. Neutro. 10.00 x10E3/uL 1.2-7.6 H [facility] ital Abs. Lymph. 0.28 x10E3/uL 1.0-3.5 [facility] Abs. [place]. 0.07 x10E3/uL 0.1-1.0 [facility] Abs. Eosin. 0.00 x10E3/uL 0.1-0.7 [facility] Abs. Baso. 0.00 x10E3/uL 0.0-0.1 [facility] Abs. Imm. Gran. 0.05 x10E3/uL 0.0-0.1 [facility] ANRBC% 0 % 0 [facility] DIFFERENTIAL CONFIRMED BY SLIDE REVIEW. ID Date Data Source [id number] 06/09/2020 04:31:00 PM EDT [facility] Exam Number: [id number] Echocardiogr am ReportName: ELA PONCE BStudy Date: 06/08/[id number]: 1945 Gender: FemaleAge: 74 yrs Weight: 119 [...] with elevated RA pressure.Report electronically signed in [facility] by: Fang Obrien MD, MPH,FACC on 06/08/2020 05:35 PM Reported By: - FANG OBRIEN MD Signed By: FANG OBRIEN MD Name Value Range Interpretation Code Description Data Rosa rce(s) Supporting Document(s) ID Date Data Source [id number] 06/09/2020 01:00:00 PM EDT [address] [id number] NOTEPATIENT NAME: ELA PONCE PHYSICIAN: MICHAEL WANG MDAUTHOR: Shankar Denis DO. DATE: 05/18/20 MR#: [id number] NOTE DATE: 06/09/20 RM#: [id number] TIME: 1359 : 45SubjectiveEvents Since Last EntryPatient seen and examined in room today. Patient denies acute complaint.Patient requires less oxygen support. Patient responds very well withdiuretic.ObjectiveVital SignsVital Signs-24 HRS06/08 1600 1800 1810 2000Temp 97.5 98.5Pulse 70 69 71 76Resp 16 14 14 14B/P 140/54 126/77 131/55 137/53B/P MeanPulse Ox 94 95 93 95O2 Delivery Nasal cannulaO2 Flow Rate 5MkJ36106/08000 2009 2118 2199 2200Temp 98.9Pulse 79 73 74Resp 30 13B/P 137/53 124/82 145/57B/P MeanPulse Ox 96 94O2 Delivery Nasal cannulaO2 Flow Rate 1JPcA02706/09212344 1534 0200 0200 0400Temp 97.9 98.7Pulse 69 72 78Resp 14 13 11B/P 126/45 137/51 144/58B/P MeanPulse Ox 90 93 90O2 DeliveryO2 Flow GpukCdB76106/09312794 5712 0600 0800 0827Temp 97.8 97.3 99.1Pulse 80 88Resp 11 18B/P 157/63 156/56 142/52B/P MeanPulse Ox 92 93O2 DeliveryO2 Flow TxbyFiS76706/09/081923 6326 0829TempPulse 82 82RespB/P 142/52 142/52 142/52B/P MeanPulse OxO2 DeliveryO2 Flow XsalSeN7Hfptjx/OutputIntake/Output Summary 24 hours06/08 1900 06/09 0700Intake Total [...] shortly after the event. Patient landed on [employer]. Patient denied hitting her head.- CT head [...] codeProlong Service Time* 30 minutes of prolong jnef-vd-jqtw time spent with Patient, patient's son andcase sales manager [place].* Discussed: discharge planning.VTE Proph ylaxisVTE Prophylaxis: Continue heparin.DATE SIGNED: 06/11/20 Electronically SignedTIME SIGNED: 2126 GEORGIA DENIS DO Name Value Range Interpretation Code Description Data Rosa rce(s) Supporting Document(s) ID Date Data Source [id number] 06/09/2020 08:02:00 AM EDT [facility] Name Value Range Interpretation Code Description Data Rosa rce(s) Supporting Document(s) WBC 4.59 x10E3/uL 4.0-10.[address] [facility] RBC 3.22 x10E6/uL 4.20-5.40 [facility] Hemoglobin 9.8 g/dL 12.0-16.0 [facility] Hematocrit 30.8 % 37.0-47.0 [facility] MCV 95.7 fL 81.0-99.[address] [facility] MCH 30.4 pg 27.0-31.0 [facility] MCHC 31.8 g/dL 32.7-35.6 [facility] RDW 17.5 % 11.5-14.[address] [facility] Platelet count 185 x10E3/uL 150-450 N [facility] ital MPV 10.1 fl 6.9-9.[address] [facility] SEG. NEUTROPHIL 93 % 34-64 [facility] BAND 0 % 5-[address] [facility] LYMPHOCYTE 7 % 25-[address] [facility] EOSINOPHILS 0 % 0-[address] [facility] MONOCYTES 0 % 2-[address] [facility] BASOPHILS 0 % 0-[address] [facility] ATYPICAL LYMPHS 0 % 0-10 [facility] 0 % 0-2 [facility] MY[facility]OC[facility] % 0-[address] [facility] PROMYELOCYTES 0 % 0-[address] [facility] BLAST CELLS 0 % 0-[address] [facility] NUCLEATED RBC'S 0 0 [facility] PLATELET MORPH 1+ PLT SIZE VARIES N [facility] PLATELET MORPHOLOGY EXPECTED RESULT:NORM AL = NO REMARKABLE MORPHOLOGYAny findings other than Normal will be reported and areconsidered Abnormal. The significance of Abnormal findingsare to be clinically correlated by the provider. ID Date Data Source [id number] 06/09/2020 07:55:00 AM EDT [facility] Name Value Range Interpretation Code Description Data Rosa rce(s) Supporting Document(s) GLU 305 mg/dL 70-[address] [facility] Patients taking Sulfasalazine may have f alsely depressedGlucose levels. Patients taking Sulfapyridine may havefalsely elevated Glucose levels. Patients should be drawnfor Glucose before the initial administration of eitherdrug. BUN 34 mg/dL 7-[address] [facility] CRE 1.220 mg/dL 0.500-1.300 [facility] GFR 46 mL/min [facility] CHLORIDE 105 mmol/L 99-110 [facility] NA 142 mmol/L 136-147 [facility] POTASSIUM 5.2 mmol/L 3.5-5.[address] [facility] TCO2 28 mmol/L 20-33 [facility] ANION GAP 14.2 10.0-20.0 [facility] CA 8.0 mg/dL 8.3-10.7 [facility] ID Date Data Source [id number] 06/08/2020 10:58:00 AM EDT [address] [id number] NOTEPATIENT NAME: ELA PONCE PHYSICIAN: MICHAEL WANG MDAUTHOR: Shankar Denis DO. DATE: 05/18/20 MR#: [id number] NOTE DATE: 06/08/20 RM#: [id number] TIME: 1340 : 45SubjectiveEvents Since Last EntryPatient seen and examined in the room today. Currently patient's oxygenation ismaintained with 6L NC. Patient's mentation is improving. Patient is complainingabout her chronic back pain. No recurrence of hypoglycemia. Patient stated shehad similar episode at home.ObjectiveVital SignsVital Signs-24 HRS06/07567471 7070 1800 1999 2001Temp 97.8 97.2 96.8 98.7Pulse 75 95 62 68Resp 20 24 13 16B/P 119/90 119/56 115/48 142/61B/P MeanPulse Ox 93 95 95 90 91O2 Delivery Nasal cannula BiPAPO2 Flow Rate 4L 5JIzC91606/07040 2201 0000 0200 02 00Temp 98.4Pulse 66 67 74 68Resp 13 21 13B/P 138/52 118/45 145/61 148/54B/P MeanPulse Ox 92 87 88O2 DeliveryO2 Flow BfwdIoH37506/08394459 0291 0615 0800 0819Temp 98.4 98.2Pulse 80 79Resp 21 16B/P 154/60 127/90 136/64B/P MeanPulse Ox 85 94O2 DeliveryO2 Flow MojsZiZ10006/08674146 5480 0823 0919TempPulse 88 88RespB/P 136/64 136/64 136/64B/P MeanPulse OxO2 Delivery Nasal cannulaO2 Flow Rate 7CgV5Ezhtpg/OutputIntake/Output Summary 24 hours06/07 1900 06/08 0700Intake Total [...] oriented x 3Psych/Mental Status anxiousResultsLaboratory DataRecent Labs-24 hours06/07690377 5156 1736Blood GasABG pH (7.360 - 7.440) 7.406ABG [...] 12.0C-Reactive Protein (0.00 - 0.49 mg/dL) 5.97 UVpe-V-Lqnonpqwbar Pept (0 - 125 pg/mL) 5531 HTotal [...] % (auto) (0 %) 0RBC Morphology 1+ ZIRKEGDCZAXO8806/076 1736 1758Blood GasABG pH CancelledABG pCO2 CancelledABG pO2 CancelledABG O2 Saturation CancelledABG Base Excess CancelledOxyhemoglobin CancelledCarboxyhemoglobin CancelledMethemoglobin CancelledTotal Hemoglobin CancelledFiO2 CancelledChemistrySerum Bicarbonate CancelledPlasma Lactic Acid Sedrick (0.4 - 2.0 mmol/L) 0.4Troponin I High Sens (3.0 - 82.3 ng/L) 33.304800 2100Blood GasABG pH (7.360 - 7.440) 7.447 [...] ClearUrine pH (5.0 - 8.0) 5.5Ur Specific [place] (1.010 - 1.025) 1.012Urine Protein (Negative) 3+Urine Ketones (NEGATIVE) NegativeUrine Blood (NEGATIVE) NegativeUrine Nitrite (Negative) NegativeUr Bilirubin Confirm (NEGATIVE) NegativeUrine Urobilinogen (0.2 - 1.0 mg/dL) 0.2Urine Leukocytes (Negative) NegativeUrine RBC (NONE SEEN) 0-2 RBCs/HPFUrine WBC (NONE SEEN) 0-2 WBCs/HPFUrine Bacteria (NONE SEEN) FewUrine Casts (NONE SEEN) FEW GRANULAR/LPFFEW HYALINE/LPFUrine Mucus (NONE SEEN) FewUrine Glucose (NEGATIVE) Qfcmogqr33/928030SxauyzjmfJuhaaa (136 - 147 mmol/L) 144Potassium (3.5 - [...] the patient.Advance Care Planning* 20 minutes of eayg-cl-sbec time spent for Advance Care Planning inexplanation/discussion of Advance Directives.* Following people are present during the meeting: Patient and her son in ICU.* Decisions reached: Full code.Prolong Service Time* 30 minutes of prolong rgyf-sk-rhma time spent with Patient, Patient's son,case management.* Discussed: Subacute rehab. Transition to group home if patient fails rehab.Consider rehab facility in [place], [facility] and [facility].VTE ProphylaxisVTE Prophylaxis: Continue heparin.DATE SIGNED: 06/11/20 Electronically SignedTIME SIGNED: 2126 GEORGIA DENIS DO Name Value Range Interpretation Code Description Data Rosa rce(s) Supporting Document(s) ID Date Data Source [id number] 06/08/2020 06:05:00 AM EDT [facility] Name Value Range Interpretation Code Description Data Rosa rce(s) Supporting Document(s) WBC 6.77 x10E3/uL 4.0-10.[address] [facility] RBC 3.38 x10E6/uL 4.20-5.[address] [facility] Hemoglobin 10.2 g/dL 12.0-16.[address] [facility] Hematocrit 32.0 % 37.0-47.0 [facility] MCV 94.7 fL 81.0-99.0 [facility] MCH 30.2 pg 27.0-31.0 [facility] MCHC 31.9 g/dL 32.7-35.[address] [facility] RDW 17.5 % 11.5-14.[address] [facility] Platelet count 170 x10E3/uL 150-450 [facility] ital MPV 9.7 fl 6.9-9.[address] [facility] Neutrophils 82.7 % 34-[address] [facility] Lymphocytes 6.4 % 25-[address] [facility] Monocytes 9.2 % 1.7-10.[address] [facility] Eosinophils 1.3 % 0.4-7.0 [facility] Basophils 0.1 % 0.1-2.0 [facility] Imm. Gran. 0.3 % 0.1-2.0 [facility] Abs. Neutro. 5.60 x10E3/uL 1.2-7.6 [facility] Abs. Lymph. 0.43 x10E3/uL 1.0-3.5 [facility] Abs. [place]. 0.62 x10E3/uL 0.1-1.0 [facility] Abs. Eosin. 0.09 x10E3/uL 0.1-0.7 [facility]. Baso. 0.01 x10E3/uL 0.0-0.1 [facility] Abs. Imm. Gran. 0.02 x10E3/uL 0.0-0.1 N [facility] spital ANRBC% 0 % 0 [facility] DIFFERENTIAL CONFIRMED BY SLIDE REVIEW. ID Date Data Source [id number] 06/08/2020 06:03:00 AM EDT [facility] Name Value Range Interpretation Code Description Data Rosa rce(s) Supporting Document(s) MAGNESIUM 1.8 mg/dL 1.6-2.[address] [facility] ID Date Data Source [id number] 06/08/2020 06:03:00 AM EDT [facility] Name Value Range Interpretation Code Description Data Rosa rce(s) Supporting Document(s) GLU 141 mg/dL 70-[address] [facility] Patients taking Sulfasalazine may have f alsely depressedGlucose levels. Patients taking Sulfapyridine may havefalsely elevated Glucose levels. Patients should be drawnfor Glucose before the initial administration of eitherdrug. BUN 30 mg/dL 7-[address] [facility] CRE 0.913 mg/dL 0.500-1.300 [facility] GFR > 60 mL/min [facility] CHLORIDE 108 mmol/L 99-110 [facility] NA 144 mmol/L 136-147 [facility] POTASSIUM 4.5 mmol/L 3.5-5.1 [facility] TCO2 30 mmol/L 20-33 [facility] ANION GAP 10.5 10.0-20.0 [facility] CA 8.1 mg/dL 8.3-10.[address] [facility] ID Date Data Source [id number] 06/08/2020 12:43:00 AM EDT [place], [place] [address]CROSS COVERAGE PROGRESS NOTEPATIENT NAME: ELA PONCE PHYSICIAN: MICHAEL WANG MDAUTHOR: David GA,S. : 45ADM. DATE: 05/18/20 MR#: [id number] NOTE DATE: 06/08/20 RM#: [id number] TIME: 46 HistoryNOCTURNALIST CROSS COVERAGE NOTEThis is a 74-year-old female with a known past medical history ofCOPD, diabetes, hypertension, spinal stenosis initially transferred from [facility] to [facility] on May 18, 2020 for persistent back [...] for active diuresis.@ 8:36 pm-was notified by [employer]ING [employer]ATE [employer]TER that patient capillary blood glucose was 77and [...] till morning when her son (Doni from [place], [place]) arrives to changeher CODE STATUS to [...] Ox 92O2 Delivery Nasal cannulaO2 Flow Rate 6ESxE73506/07015 1022 1424 1638 1800Temp 98.7 97.8 97.2 96.8Pulse 80 75 95 62Resp 22 20 24 13B/P 119/88 119/90 119/56 115/48B/P MeanPulse Ox 94 93 95 95O2 Delivery Nasal cannula Nasal cannula BiPAPO2 Flow Rate 3L 4L 5PLiE72806/07532844 4884 204 2201Temp 98.7Pulse 68 66 67Resp 16 13B/P 142/61 138/52 118/45B/P MeanPulse Ox 90 91 92O2 DeliveryO2 Flow VdxvRkY5Gxycou/OutputIntake/Output Summary 24 hours06/07 1900 06/08 0700Intake TotalOutput [...] patient, son (Doni (via telephone))Case discussed with [employer]ING [employer]ATE SETTER- KateCritical Care Time* Based on my evaluation, the patient has the above life-threateningconditions.* I have personally provided [35 ] minutes of critical care time exclusive ofbillable procedures caring for the patient.Advance Care Planning* [14 ] minutes of mrya-bc-pkig time spent for Advance Care Planning inexplanation/discussion of Advance Directives.* Decisions reached: [ PATIENT WOULD LIKE TO RESCIND CURRENT MOLST FORM TO DNR/DNI- HOWEVER WILL WAIT FOR HER SON TO ARRIVE THIS MORNING].VTE ProphylaxisVTE Prophylaxis: [ heparin sq].DATE SIGNED: 06/08/20 Electronically SignedTIME SIGNED: 730 JAMIR ALLEN MD Name Value Range Interpretation Code Description Data Rosa rce(s) Supporting Document(s) ID Date Data Source [id number] 06/07/2020 09:13:00 PM EDT [facility] O2 % or Liter Flow: 4L Name Value Range Interpretation Code Description Data Rosa rce(s) Supporting Document(s) PO2 53.9 mmHg 80-[address] [facility] PCO2 40.8 mmHg 35-[address] [facility] PH 7.447 7.360-7.[address] [facility] HCO3(ABG) 27.5 mmol/L 20-[address] [facility] %SATO2 88.3 % 95-[address] [facility] BASE EXCESS 3.2 mmol/L -3 TO +[address] [facility] DEVICE/FIO2 4L [facility] tHb 10.8 g/dL 12-[address] [facility] FO2Hb 87.6 % 94.0-97.[address] [facility] FMETHb 0.5 % 0.0-1.[address] [facility] CO 0.3 % [facility] CARBOXYHEMOGLOBIN INTERPRET ATION % TOTAL HEMOGLOBIN NONSMOKER: <2% AVERAGE SMOKER: 4-5% 1-2 PACKS/DAY HEAVY SMOKER 8-12% >2 PACKS/DAY POTENTIALLY TOXIC: >15% ID Date Data Source [id number] 06/08/2020 01:48:00 PM EDT [address] [id number] NOTEPATIENT NAME: ELA PONCE BATTENKEIKO PHYSICIAN: MICHAEL WANG MDAUTHOR: Shankar Denis DO. DATE: 05/18/20 MR#: [id number] NOTE DATE: 06/07/20 RM#: [id number] TIME: 1415 [...] demonstrated improvement.ObjectiveVital SignsVital Signs-24 HRS06/07424 1638 1800 2000 2000Temp 97.8 97.2 96.8 98.7Pulse 75 95 62 68Resp 20 24 13 16B/P 119/90 119/56 115/48 142/61B/P MeanPulse Ox 93 95 95 90 91O2 Delivery Nasal cannula BiPAPO2 Flow Rate 4L 2YWyD74806/07040 2201 0000 0200 0200Temp 98.4Pulse 66 67 74 68Resp 13 21 13B/P 138/52 118/45 145/61 148/54B/P MeanPulse Ox 92 87 88O2 DeliveryO2 Flow VamxJqT02606/08400 0400 0615 0630 0645Temp 98.4Pulse 80 79 83 81Resp 21 16 18 15B/P 154/60 127/90 162/61 146/56B/P MeanPulse Ox 85 94 91 94O2 DeliveryO2 Flow RsltDxZ12806/08700 0700 0715 0730 0745TempPulse 87 79 78 86Resp 16 16 15 17B/P 174/60 139/51 135/54 161/64B/P MeanPulse Ox 89 94 94 92O2 DeliveryO2 Flow HpfkEeO23506/08800 0815 0815 0819 0820Temp 98.2Pulse 87Resp 23B/P 136/64 136/64 136/64B/P MeanPulse Ox 93O2 DeliveryO2 Flow RccuMmX09906/08820 0823 0845 0900 0915TempPulse 88 88 86 85 77Resp 19 17 17B/P 136/64 136/64 172/65 166/63 151/59B/P MeanPulse Ox 96 94 95O2 DeliveryO2 Flow QcseHkB07606/08919 0930 0930 0945 1000TempPulse 76 73 73Resp 17 16 12B/P 148/56 131/52 141/50B/P MeanPulse Ox 92 95 96O2 Delivery Nasal cannulaO2 Flow Rate 8UtK36106/08015 1030 1045 1045 1100TempPulse 75 75 72 70Resp 15 23 15 17B/P 140/118 142/58 144/53 142/55B/P MeanPulse Ox 93 93 95 95O2 DeliveryO2 Flow WopgBsP67706/08115 1130 1145 1200 1200TempPulse 72 70 71 72Resp 15 16 15 18B/P 125/42 121/52 119/52 130/48B/P MeanPulse Ox 94 94 91 93O2 DeliveryO2 Flow GdebWvY67406/08215 1230 1245TempPulse 73 71 72Resp 13 21 16B/P 100/79 140/51 125/47B/P MeanPulse Ox 93 93 90O2 DeliveryO2 Flow XtmrFkK8Kajupf/OutputIntake/Output Summary 24 hours06/07 1900 06/08 0700Intake Total [...] Status unable to evaluateResultsLaboratory DataRecent Labs- 24 hours06/07679066 1774 1736Blood GasABG pH (7.360 - 7.440) 7.406ABG [...] 12.0C-Reactive Protein (0.00 - 0.49 mg/dL) 5.97 MWzn-I-Idzeeifzmll Pept (0 - 125 pg/mL) 5531 HTotal [...] % (auto) (0 %) 0RBC Morphology 1+ DIQMZOYYCIYV3506/076 1736 1758Blood GasABG pH CancelledABG pCO2 CancelledABG [...] ClearUrine pH (5.0 - 8.0) 5.5Ur Specific [place] (1.010 - 1.025) 1.012Urine Protein (Negative) 3+Urine Ketones (NEGATIVE) NegativeUrine Blood (NEGATIVE) NegativeUrine Nitrite (Negative) NegativeUr Bilirubin Confirm (NEGATIVE) NegativeUrine Urobilinogen (0.2 - 1.0 mg/dL) 0.2Urine Leukocytes (Negative) NegativeUrine RBC (NONE SEEN) 0-2 RBCs/HPFUrine WBC (NONE SEEN) 0-2 WBCs/HPFUrine Bacteria (NONE SEEN) FewUrine Casts (NONE SEEN) FEW GRANULAR/LPFFEW HYALINE/LPFUrine Mucus (NONE SEEN) FewUrine Glucose (NEGATIVE) Xvfnzswj10/507984XsefkbqvdZcpcwr (136 - 147 mmol/L) 144Potassium (3.5 - [...] rce(s) Supporting Document(s) ID Date Data Source [id number] 06/07/2020 06:27:00 PM EDT [facility] Name Value Range Interpretation Code Description Data Rosa rce(s) Supporting Document(s) URINE COLOR Yellow [facility] UAPR Clear [facility] UGLU Negative NEGATIVE [facility] URINE BILIRUBIN Negative NEGATIVE [facility] UKET Negative NEGATIVE [facility] USG 1.012 1.010-1.025 [facility] UBLO Negative NEGATIVE [facility] UpH 5.5 5.0-8.0 [facility] UPRO 3+ Negative [facility] UUB 0.2 mg/dL 0.2-1.0 [facility] UNIT Negative Negative [facility] ULEU Negative Negative [facility] ID Date Data Source [id number] 06/07/2020 06:27:00 PM EDT [facility] jer Name Value Range Interpretation Code Description Data Rosa rce(s) Supporting Document(s) URINE RBC 0-2 RBCs/HPF NONE SEEN [facility] URINE WBC 0-2 WBCs/HPF NONE SEEN [facility] URINE BACTERIA Few NONE SEEN [facility] l URINE EPI. Rare NONE SEEN [facility] FEW GRANULAR/LPFFEW HYALINE/LPF UMUCUS Few NONE SEEN [facility] ID Date Data Source [id number] 06/07/2020 05:46:00 PM EDT [facility]: [id number] OF EXAMINATIO N: 06/07/2020 16:29 EDTCT ANGIO [...] Darcy Collazo M.D. 06/07/2020 17:34EDT Reported By: - DARCY COLLAZO M.D. Signed By: DARCY COLLAZO M.D. Name Value Range Interpretation Code Description Data Rosa rce(s) Supporting Document(s) ID Date Data Source [id number] 06/07/2020 05:39:00 PM EDT [facility] Exam Number: [id number] OF EXAMINATIO N: 06/07/2020 16:29 EDTCT BRAIN [...] rce(s) Supporting Document(s) ID Date Data Source [id number] 06/07/2020 06:19:00 PM EDT [facility] Name Value Range Interpretation Code Description Data Rosa rce(s) Supporting Document(s) C-REACTIVE PROT 5.97 mg/dL 0.00-0.49 [facility] Data Source [id number] 06/07/2020 06:19:00 PM EDT [facility] Name Value Range Interpretation Code Description Data Rosa rce(s) Supporting Document(s) NT-PROBNP 5531 pg/mL 0-[address] [facility] ID Date Data Source [id number] 06/07/2020 06:19:00 PM EDT [facility] Name Value Range Interpretation Code Description Data Rosa rce(s) Supporting Document(s) GLU 36 mg/dL 70-110 [facility] Patients taking Sulfasalazine may have f alsely depressedGlucose levels. Patients taking Sulfapyridine may havefalsely elevated Glucose levels. Patients should be drawnfor Glucose before the initial administration of eitherdrug. BUN 34 mg/dL 7-[address] [facility] CRE 0.932 mg/dL 0.500-1.300 [facility] GFR > 60 mL/min [facility] CHLORIDE 109 mmol/L 99-110 [facility] NA 144 mmol/L 136-147 [facility] POTASSIUM 4.1 mmol/L 3.5-5.1 [facility] TCO2 28 mmol/L 20-33 [facility] ANION GAP 11.1 10.0-20.0 [facility] CA 8.3 mg/dL 8.3-10.7 [facility] ALKALINE PHOS 205 U/L 45-[address] [facility] TP 5.4 g/dL 6.0-7.[address] [facility] ALB 2.4 g/dL 3.5-5.0 [facility] ESRD Dialysis patient Albumin reference range: 2.9-4.4 g/dL GL 3.0 g/dL 2.3-3.5 [facility] A/G 0.8 1.0-2.[address] [facility] T. BILIRUBIN 0.4 mg/dL 0.1-1.1 [facility] [place] Total Bilirubin is n ot recommended forpatients undergoing treatment with eltrombopag (Promacta)due to the potential for falsely elevated results. ALTI 19 U/L 6-54 [facility] Patients taking Sulfasalazine and/or Sul fapyridine may havefalsely depressed ALT levels. Patients should be drawn forALT before the initial administration of either drug. AST 20 U/L 6-38 [facility] Patients taking Sulfasalazine and/or Sul fapyridine may havefalsely depressed AST levels. Patients should be drawn forAST before the initial administration of either drug. ID Date Data Source [id number] 06/07/2020 06:15:00 PM EDT [facility] jer Name Value Range Interpretation Code Description Data Rosa rce(s) Supporting Document(s) TROPONIN HS 33.3 ng/L 3.0-82.3 [facility] ID Date Data Source [id number] 06/07/2020 06:15:00 PM EDT [facility] Name Value Range Interpretation Code Description Data Rosa rce(s) Supporting Document(s) LACTIC ACID COMFORT 0.4 mmol/L 0.4-2.0 [facility] ID Date Data Source [id number] 06/07/2020 06:14:00 PM EDT [facility] Name Value Range Interpretation Code Description Data Rosa rce(s) Supporting Document(s) AMMONIA 12.0 umol/L 11-32 [facility] Patients taking Sulfasalazine may have f alselyelevated Ammonia results. Patients taking Sulfapyridine mayhave falsely depressed Ammonia levels. Patients should bedrawn for Ammonia before the initial administration ofeither drug. ID Date Data Source [id number] 06/07/2020 06:04:00 PM EDT [facility] jer Name Value Range Interpretation Code Description Data Rosa rce(s) Supporting Document(s) WBC 9.98 x10E3/uL 4.0-10.5 [facility] RBC 3.08 x10E6/uL 4.20-5.[address] [facility] Hemoglobin 9.3 g/dL 12.0-16.0 [facility] Hematocrit 29.2 % 37.0-47.0 [facility] MCV 94.8 fL 81.0-99.0 [facility] MCH 30.2 pg 27.0-31.0 [facility] MCHC 31.8 g/dL 32.7-35.6 [facility] RDW 17.5 % 11.5-14.[address] [facility] Platelet count 177 x10E3/uL 150-450 N [facility] ital MPV 9.8 fl 6.9-9.[address] [facility] Neutrophils 86.7 % 34-[address] [facility] Lymphocytes 3.9 % 25-[address] [facility] Monocytes 8.3 % 1.7-10.[address] [facility] Eosinophils 0.4 % 0.4-7.0 [facility] Basophils 0.3 % 0.1-2.0 [facility] Imm. Gran. 0.4 % 0.1-2.0 [facility] Abs. Neutro. 8.65 x10E3/uL 1.2-7.6 [facility] Lymph. 0.39 x10E3/uL 1.0-3.5 [facility] Abs. [place]. 0.83 x10E3/uL 0.1-1.0 N [facility] l Abs. Eosin. 0.04 x10E3/uL 0.1-0.7 [facility] Abs. Baso. 0.03 x10E3/uL 0.0-0.1 N [facility] l Abs. Imm. Gran. 0.04 x10E3/uL 0.0-0.1 N [facility] spital ANRBC% 0 % [address] [facility] DIFFERENTIAL CONFIRMED BY SLIDE REVIEW. RBC MORPHOLOGY 1+ ANISOCYTOSIS N [facility] ospital RBC MORPHOLOGY EXPECTED RESULTS: NORMAL = NORMOCHROMIC, NORMOCYTIC CELLSAny findings other than Normal will be reported and areconsidered Abnormal. The significance of Abnormalfindings are to be clinically correlated by the provider. ID Date Data Source [id number] 06/07/2020 04:04:00 PM EDT [facility] Exam Number: [id number] OF EXAMINATIO N: 06/07/2020 15:20 EDTCHEST SINGLE VIEWHISTORY: HypoxiaTECHNIQUE: Single frontal radiograph of chestCOMPARISON: 05/30/2020FINDINGS:Right upper lobe parenchymal disease is unchanged. Cardiac silhouetteand pulmonary vascularity is within normal limits. Lungs are otherwiseclear.IMPRESSION:Persistent parenchymal disease in the right upper lobe withoutinterval change. Continued follow-up to resolution is encouraged.Electronically signed in PS360 by: Tabitha De La Vega M.D. 115:52 EDT Reported By: Kemal DE LA VEGA M.D. Signed By: Pramod DE LA VEGA M.D. Name Value Range Interpretation Code Description Data Rosa rce(s) Supporting Document(s) ID Date Data Source [id number] 06/07/2020 03:46:00 PM EDT [facility] O2 % or Liter Flow: 6L Name Value Range Interpretation Code Description Data Rosa rce(s) Supporting Document(s) PO2 69.0 mmHg 80-[address] [facility] PCO2 45.3 mmHg 35-[address] [facility] PH 7.406 7.360-7.440 [facility] HCO3(ABG) 27.8 mmol/L 20-33 [facility] %SATO2 92.9 % 95-[address] [facility] BASE EXCESS 2.6 mmol/L -3 TO +3 [facility] DEVICE/FIO2 100% [facility] tHb 11.6 g/dL 12-[address] [facility] FO2Hb 91.9 % 94.0-97.[address] [facility] FMETHb 0.6 % 0.0-1.5 [facility] CO 0.5 % [facility] CARBOXYHEMOGLOBIN INTERPRET ATION % TOTAL HEMOGLOBIN NONSMOKER: <2% AVERAGE SMOKER: 4-5% 1-2 PACKS/DAY HEAVY SMOKER 8-12% >2 PACKS/DAY POTENTIALLY TOXIC: >15% ID Date Data Source [id number] 06/07/2020 12:50:00 PM EDT [facility] Name Value Range Interpretation Code Description Data Rosa rce(s) Supporting Document(s) FGLU 110 mg/dL 70-110 [facility] ID Date Data Source [id number] 06/07/2020 03:52:00 PM EDT [facility] Name Value Range Interpretation Code Description Data Rosa rce(s) Supporting Document(s) FGLU 143 mg/dL 70-110 [facility] ID Date Data Source [id number] 06/07/2020 05:23:00 PM EDT [facility] Name Value Range Interpretation Code Description Data Rosa rce(s) Supporting Document(s) FGLU 228 mg/dL 70-110 [facility] ID Date Data Source [id number] 06/07/2020 06:08:00 AM EDT [facility] Name Value Range Interpretation Code Description Data Rosa rce(s) Supporting Document(s) FGLU 210 mg/dL 70-110 [facility] ID Date Data Source [id number] 06/06/2020 08:18:00 PM EDT [facility] Name Value Range Interpretation Code Description Data Rosa rce(s) Supporting Document(s) FGLU 69 mg/dL 70-110 [facility] ID Date Data Source [id number] 06/06/2020 08:04:00 PM EDT [facility] Name Value Range Interpretation Code Description Data Rosa rce(s) Supporting Document(s) FGLU 69 mg/dL 70-110 [facility] ID Date Data Source [id number] 06/06/2020 09:36:00 PM EDT [facility] Name Value Range Interpretation Code Description Data Rosa rce(s) Supporting Document(s) FGLU 150 mg/dL 70-110 [facility] ID Date Data Source [id number] 06/06/2020 10:41:00 AM EDT [facility] [place] [address] [id number] NOTEPATIENT NAME: COUTURE,ELA BATTENDING PHYSICIAN: MICHAEL WANG, MDAUTHOR: Shankar Denis DO. DATE: 05/18/20 MR#: [id number] NOTE DATE: 06/06/20 RM#: [id number] TIME: 1050 : 45SubjectiveEvents Since Last EntryPatient seen and examined in the room today. No fever or chill. Denies anyworsening of the breathing.ObjectiveVital SignsVital Signs-24 HRS06/05201477 4627 2127 2199 0652Temp 98.2 98.9 98.0Pulse 67 81 85 79Resp 17 17 17B/P 111/54 120/68 138/57 120/57B/P MeanPulse Ox 93 92 91O2 Delivery Nasal cannula Nasal cannulaO2 Flow Rate 3L 9HJaI36406/06823 0825 0826 0826TempPulse 91 91RespB/P 121/66 121/66 121/66 121/66B/P MeanPulse OxO2 DeliveryO2 Flow YzmcVxW7Bjbxln/OutputIntake/Output Summary 24 hours06/05 1900 06/06 0700Intake Total [...] no lymphadenopathyPsych/Mental Status mood neutralResultsLaboratory DataRecent Labs-24 hours06/05339224 2162 1318 1708 2019ChemistryPOC Glucose (70 - 110 mg/dL) 62 L 61 L 151 H 127 H 208 H006/06294190 0631ChemistrySodium (136 - 147 mmol/L) 143Potassium (3.5 [...] for discharge[facility]. PneumoniaStatus AcuteA&P- S/P [...] duloxetine. Continue Buspar.12. AnxietyStatus AcuteA&P- Continue BuSpar, dbhnumiekt54. PVD (peripheral vascular disease)Status ChronicA&P-History of stent placement.-Continue Plavix, yyabay36. DebilityStatus ChronicA&P-Patient needs subacute rehab.15. HypoalbuminemiaStatus ChronicA&P- Continue Ensure supplement.-Encourage oral intake as tolerated.16. Polysubstance abuseStatus ChronicA&P-Continue thiamine, folic acid and dfambdskyfkx64. HypernatremiaStatus Zjzodlye70. Anemia of chronic diseaseStatus AcuteA&P-Status post 3 PRBC transfusions.- HH is maintaining.19. CandidiasisStatus AcuteA&P- Continue nystatin powder. Continue MIconazole cream.Resuscitation status Full codeDATE SIGNED: 06/11/20 Electronically SignedTIME SIGNED: 2126 [place] DENIS DO Name Value Range Interpretation Code Description Data Rosa [facility](s) Supporting Document(s) ID Date Data Source [id number] 06/06/2020 06:37:00 AM EDT [facility] Name Value Range Interpretation Code Description Data Rosa rce(s) Supporting Document(s) FGLU 236 mg/dL 70-[address] [facility] ID Date Data Source [id number] 06/06/2020 06:41:00 AM EDT [facility] jer Name Value Range Interpretation Code Description Data Rosa rce(s) Supporting Document(s) MAGNESIUM 2.0 mg/dL 1.6-2.6 [facility] ID Date Data Source [id number] 06/06/2020 06:41:00 AM EDT [facility] jer Name Value Range Interpretation Code Description Data Rosa rce(s) Supporting Document(s) GLU 188 mg/dL 70-[address] [facility] Patients taking Sulfasalazine may have f alsely depressedGlucose levels. Patients taking Sulfapyridine may havefalsely elevated Glucose levels. Patients should be drawnfor Glucose before the initial administration of eitherdrug. BUN 35 mg/dL 7-[address] [facility] CRE 0.931 mg/dL 0.500-1.300 [facility] GFR > 60 mL/min [facility] CHLORIDE 108 mmol/L 99-110 [facility] NA 143 mmol/L 136-147 [facility] POTASSIUM 4.8 mmol/L 3.5-5.1 [facility] TCO2 27 mmol/L 20-33 [facility] ANION GAP 12.8 10.0-20.0 [facility] CA 8.5 mg/dL 8.3-10.7 [facility] ID Date Data Source [id number] 06/06/2020 05:47:00 AM EDT [facility] jer Name Value Range Interpretation Code Description Data Rosa rce(s) Supporting Document(s) WBC 8.26 x10E3/uL 4.0-10.5 [facility] RBC 3.32 x10E6/uL 4.20-5.[address] [facility] Hemoglobin 10.0 g/dL 12.0-16.0 [facility] Hematocrit 31.6 % 37.0-47.0 [facility] MCV 95.2 fL 81.0-99.0 [facility] MCH 30.1 pg 27.0-31.0 [facility] MCHC 31.6 g/dL 32.7-35.6 L [facility] RDW 17.4 % 11.5-14.0 [facility] Platelet count 170 x10E3/uL 150-450 [facility] ital MPV 10.3 fl 6.9-9.5 [facility] Neutrophils 78.0 % 34-64 [facility] Lymphocytes 8.8 % 25-45 [facility] Monocytes 10.2 % 1.7-10.6 [facility] Eosinophils 2.2 % 0.4-7.0 N [facility] Basophils 0.4 % 0.1-2.0 N [facility] Imm. Gran. 0.4 % 0.1-2.0 N [facility] Abs. Neutro. 6.45 x10E3/uL 1.2-7.6 [facility] Abs. Lymph. 0.73 x10E3/uL 1.0-3.5 [facility] Abs. [place]. 0.84 x10E3/uL 0.1-1.0 [facility] Abs. Eosin. 0.18 x10E3/uL 0.1-0.7 [facility] Abs. Baso. 0.03 x10E3/uL 0.0-0.1 [facility] Abs. Imm. Gran. 0.03 x10E3/uL 0.0-0.1 [facility] ANRBC% 0 % 0 [facility] ID Date Data Source [id number] 06/06/2020 12:17:00 AM EDT [facility] Name Value Range Interpretation Code Description Data Rosa rce(s) Supporting Document(s) FGLU 208 mg/dL 70-110 [facility] ID Date Data Source [id number] 06/05/2020 09:16:00 PM EDT [facility] Name Value Range Interpretation Code Description Data Rosa rce(s) Supporting Document(s) FGLU 127 mg/dL 70-110 [facility] ID Date Data Source [id number] 06/05/2020 01:27:00 PM EDT [facility] Name Value Range Interpretation Code Description Data Rosa rce(s) Supporting Document(s) FGLU 151 mg/dL 70-[address] [facility] ID Date Data Source [id number] 06/05/2020 02:57:00 PM EDT [facility] Name Value Range Interpretation Code Description Data Rosa rce(s) Supporting Document(s) FGLU 61 mg/dL 70-[address] [facility] ID Date Data Source [id number] 06/05/2020 04:28:00 PM EDT [facility] Name Value Range Interpretation Code Description Data Rosa rce(s) Supporting Document(s) FGLU 62 mg/dL 70-[address] [facility] ID Date Data Source [id number] 06/05/2020 10:50:00 AM EDT [place] [address] [id number] NOTEPATIENT NAME: COUTURE,ELA BATTENDING PHYSICIAN: MICHAEL WANG MDAUTHOR: Shankar Denis DO. DATE: 05/18/20 MR#: [id number] NOTE DATE: 06/05/20 RM#: [id number] TIME: 1123 : 45SubjectiveEvents Since Last EntryPatient seen and examined in the room today. Patient still complains of herchronic back pain. No fever or chill. Denies any worsening of the breathing.ObjectiveVital SignsVital Signs-24 HRS06/04078250 6615 2140 2200 0541Temp 98.2 97.7 97.5Pulse 70 76 75 82Resp 17 18 16B/P 127/64 128/72 134/65 164/63B/P MeanPulse Ox 81 92 92O2 Delivery Nasal cannula Nasal cannula Nasal cannulaO2 Flow Rate 3L 3L 8NuI05506/05275713 2138 0728 0732TempPulse 81 81RespB/P 161/64 161/64 161/64 161/64B/P MeanPulse OxO2 DeliveryO2 Flow NupnEwF8Qbmpkn/OutputIntake/Output Summary 24 hours06/04 1900 06/05 0700Intake Total [...] no lymphadenopathyPsych/Mental Status mood neutralResultsLaboratory DataRecent Labs-24 hours06/04111 1628 1658 0654ChemistryPOC Glucose (70 - 110 mg/dL) [...] duloxetine. Continue Buspar.12. AnxietyStatus AcuteA&P- Continue BuSpar, igqosvhmzf45. PVD (peripheral vascular disease)Status ChronicA&P-History of stent placement.-Continue Plavix, wpswub55. DebilityStatus ChronicA&P-Patient needs subacute rehab.15. HypoalbuminemiaStatus ChronicA&P- Continue Ensure supplement.-Encourage oral intake as tolerated.16. Polysubstance abuseStatus ChronicA&P-Continue thiamine, folic acid and aeoxaoqohelt43. HypernatremiaStatus Bibnesvc16. HyperglycemiaStatus Acute19. Anemia of chronic diseaseStatus AcuteA&P-Status post 3 PRBC transfusions.- HH is maintaining.20. CandidiasisStatus AcuteA&P-Continue nystatin powder.- MIconazole added.Additional NotesBarrier for discharge: Patient requires subacute rehab arrangement.Resuscitation status Full codeVTE ProphylaxisVTE Prophylaxis: Continue heparin.DATE SIGNED: 06/11/20 Electronically SignedTIME SIGNED: 2126 [place] DENIS DO Name Value Range Interpretation Code Description Data Rosa rce(s) Supporting Document(s) ID Date Data Source [id number] 06/05/2020 06:57:00 AM [facility] Name Value Range Interpretation Code Description Data Rosa rce(s) Supporting Document(s) FGLU 261 mg/dL 70-[address] [facility] ID Date Data Source [id number] 06/04/2020 07:07:00 PM EDT [facility] Name Value Range Interpretation Code Description Data Rosa rce(s) Supporting Document(s) FGLU 79 mg/dL 70-[address] [facility] ID Date Data Source [id number] 06/04/2020 08:39:00 PM EDT [facility] Name Value Range Interpretation Code Description Data Rosa rce(s) Supporting Document(s) FGLU 54 mg/dL 70-[address] [facility] ID Date Data Source [id number] 06/04/2020 12:11:00 PM EDT [facility] [place] [id number] NOTEPATIENT NAME: ELA PONCE BATTENDING PHYSICIAN: MICHAEL WANG, MDAUTHOR: Breezy GA, Zhang. DATE: 05/18/20 MR#: [id number] NOTE DATE: 06/04/20 RM#: [id number] TIME: 1220 : 45SubjectiveCC/Hx Present IllnessBack painEvents Since Last EntryCurrently alert oriented x3. Very poor historian, Patient comfortable,reported chronic back pain. Tolerating p.o, Denies chest pain. Afebrile. Allother review of s ystem negativeObjectiveVital SignsVital Signs-24 HRS06/03372459 2466 2104 2155 0619Temp 98.2 98.5 97.5Pulse 71 76 76 74Resp 16 16 16B/P 108/52 140/64 140/64 145/65B /P MeanPulse Ox 98O2 Delivery Nasal cannula Nasal cannulaO2 Flow Rate 3L 1GBuR43606/04931022 0624 0749 0753TempPulse 68 68RespB/P 148/68 148/68 148/68 148/68B/P MeanPulse OxO2 DeliveryO2 Flow HxqfPyL9Jjzjot/OutputIntake/Output Summary 24 hours06/03 1900 06/04 0700Intake Total [...] Status mood neutral, no hallucinationsResultsLaboratory DataRecent Labs-24 hours06/03594248 3905 0338 0532ChemistrySodium (136 - 147 mmol/L) 144Potassium [...] UTI (urinary tract infection)Status ResolvedA&PTreated with Zosyn nk-Pxeduw-xn urine culture.5. HLD (hyperlipidemia)Status ChronicA&PContinue statin6. Spinal [...] essential hypertension Qualified Code: I10 - Essential(primary) rtpritbxllma37. CKD (chronic kidney disease)Status ChronicA&P-Monitor renal function.11. DiabetesStatus ChronicA&PComplicated with hypoglycemia and hyperglycemiaIncreased Levemir 14 units daily, continue NovoLog via protocol, closemonitoring, taper off prfquprg39. AnxietyStatus AcuteA&PContinue current uosdkrvjay10. PVD (peripheral vascular disease)Status ChronicA&PHistory of stent placement.Continue with Plavix, statin-Continue to monitor.14. DebilityStatus ChronicA&P-Supportive care-Consider PT/OT when patient is more alert.15. HypoalbuminemiaStatus ChronicA&PEncourage p.o. intake. Nutrition supplementation.Ensure p.o. 3 times daily.16. Polysubstance abuseStatus ChronicA&PThiamine, folic acid, multivitamin, no signs of czvbawkmlr43. HypernatremiaStatus ResolvedA&VNxdbuatom01. HyperglycemiaStatus AcuteA&a mp;PMonitor, off tciymqm06. T1-T2 SUBACUTE FRACTUREStatus AcuteA&PPT, OT, fall precaution, pain medication as orywumc85. Anemia of chronic diseaseStatus AcuteA&PWorsening anemia, no signs of bleeding, transfuse 3unit PRBC with appropriateresponse. Will monitor, further work-up as fvuepleicd95. CandidiasisStatus AcuteA&PTreatment as above ordered, wound careAdditional Bkjzf65-zgej-ezu female patient underlying medical history of COPD O2 dependent,spinal stenosis, depression, dyslipidemia, type 2 diabetes, nicotine addiction,anxiety, hypothyroidism, debility, CKD, peripheral vascular dise ase,hypoalbuminemia, polysubstance abuse, initially admitted to [facility] for right upper lobe pneumonia, sepsis, [...] rce(s) Supporting Document(s) ID Date Data Source [id number] 06/04/2020 12:48:00 PM EDT [facility] Name Value Range Interpretation Code Description Data Rosa rce(s) Supporting Document(s) FGLU 183 mg/dL 70-[address] [facility] ID Date Data Source [id number] 06/04/2020 09:13:00 AM EDT [facility] Name Value Range Interpretation Code Description Data Rosa rce(s) Supporting Document(s) FGLU 169 mg/dL 70-[address] [facility] ID Date Data Source [id number] 06/04/2020 06:16:00 AM EDT [facility] Name Value Range Interpretation Code Description Data Rosa rce(s) Supporting Document(s) WBC 8.08 x10E3/uL 4.0-10.[address] [facility] RBC 3.67 x10E6/uL 4.20-5.[address] [facility] Hemoglobin 11.0 g/dL 12.0-16.[address] [facility] Hematocrit 34.5 % 37.0-47.[address] [facility] MCV 94.0 fL 81.0-99.0 [facility] MCH 30.0 pg 27.0-31.0 [facility] MCHC 31.9 g/dL 32.7-35.[address] [facility] RDW 17.6 % 11.5-14.0 [facility] Platelet count 174 x10E3/uL 150-450 [facility] MPV 10.0 fl 6.9-9.[address] [facility] Neutrophils 81.2 % 34-64 [facility] Lymphocytes 7.8 % 25-[address] [facility] Monocytes 8.0 % 1.7-10.6 [facility] Eosinophils 2.2 % 0.4-7.[address] [facility] Basophils 0.2 % 0.1-2.0 [facility] Imm. Gran. 0.6 % 0.1-2.[address] [facility] Abs. Neutro. 6.55 x10E3/uL 1.2-7.6 [facility] Lymph. 0.63 x10E3/uL 1.0-3.5 [facility] Abs. [place]. 0.65 x10E3/uL 0.1-1.0 [facility] Abs. Eosin. 0.18 x10E3/uL 0.1-0.7 [facility] Abs. Baso. 0.02 x10E3/uL 0.0-0.1 [facility] Abs. Imm. Gran. 0.05 x10E3/uL 0.0-0.1 N [facility] spital ANRBC% 0 % [address] [facility] ID Date Data Source [id number] 06/04/2020 05:26:00 AM EDT [facility] Name Value Range Interpretation Code Description Data Rosa rce(s) Supporting Document(s) MAGNESIUM 1.8 mg/dL 1.6-2.[address] [facility] ID Date Data Source [id number] 06/04/2020 05:26:00 AM EDT [facility] Name Value Range Interpretation Code Description Data Rosa rce(s) Supporting Document(s) GLU 132 mg/dL 70-[address] [facility] Patients taking Sulfasalazine may have f alsely depressedGlucose levels. Patients taking Sulfapyridine may havefalsely elevated Glucose levels. Patients should be drawnfor Glucose before the initial administration of eitherdrug. BUN 38 mg/dL 7-[address] [facility] CRE 1.100 mg/dL 0.500-1.300 [facility] GFR 52 mL/min [facility] CHLORIDE 111 mmol/L 99-[address] [facility] NA 144 mmol/L 136-147 [facility] POTASSIUM 4.7 mmol/L 3.5-5.1 [facility] TCO2 30 mmol/L 20-33 [facility] ANION GAP 7.7 10.0-20.[address] [facility] CA 8.2 mg/dL 8.3-10.7 [facility] ID Date Data Source [id number] 06/04/2020 04:52:00 AM EDT [facility] Name Value Range Interpretation Code Description Data Rosa rce(s) Supporting Document(s) FGLU 125 mg/dL 70-[address] [facility] ID Date Data Source [id number] 06/03/2020 07:50:00 PM EDT [facility] Name Value Range Interpretation Code Description Data Rosa rce(s) Supporting Document(s) FGLU 135 mg/dL 70-[address] [facility] ID Date Data Source [id number] 06/03/2020 01:02:00 PM EDT [facility] Name Value Range Interpretation Code Description Data Rosa rce(s) Supporting Document(s) FGLU 223 mg/dL 70-[address] [facility] ID Date Data Source [id number] 06/03/2020 08:10:00 AM EDT [address] [id number] NOTEPATIENT NAME: ELA PONCE PHYSICIAN: MICHAEL WANG MDAUTHOR: Breezy GA, Zhang. DATE: 05/18/20 MR#: [id number] NOTE DATE: 06/03/20 RM#: [id number] TIME: 818 : 45SubjectiveCC/Hx Present IllnessBack painEvents Since Last EntryCurrently alert oriented x3. Very poor historian. On chronic oxygen. Patientcomfortable, reported chronic back pain, hip pain. Tolerating p.o,Denies chestpain. Afebrile. All other review of system negativeObjectiveVital SignsVital Signs-24 HRS06/02 1115 1334 2111 2126Temp 98.2 97.4Pulse 70 62 74 76Resp 17 18B/P 154/68 148/68 145/68 145/68B/P MeanPulse Ox 98 94O2 Delivery Nasal cannula Nasal cannula Nasal cannulaO2 Flow Rate 3L 3L 8VLcX429/136386Kagh 97.9Pulse 77Resp 18B/P 166/74B/P MeanPulse Ox 94O2 Delivery Nasal cannulaO2 Flow Rate 2MAiO8Aanuom/OutputIntake/Output Summary 24 hours06/02 1900 06/03 0700Intake Total [...] mood neutral, no hallu cinationsResultsLaboratory DataRecent Labs-24 hours06/02093724 9991 2101 0608ChemistryPOC Glucose (70 - 110 mg/dL) [...] UTI (urinary tract infection)Status ResolvedA&PTreated with Zosyn xo-Kxypaw-nx urine culture.5. HLD (hyperlipidemia)Status ChronicA&PContinue statin6. Spinal [...] essential hypertension Qualified Code: I10 - Essential(primary) elirkffusmqj90. CKD (chronic kidney disease)Status ChronicA&P-Monitor renal function.11. DiabetesStatus ChronicA&PComplicated with hypoglycemia and hyperglycemiaIncreased Levemir 14 units daily, continue NovoLog via protocol, closemonitoring, taper off wpvlcesh96. AnxietyStatus AcuteA&PContinue current wnjwjwggag36. PVD (peripheral vascular disease)Status ChronicA&PHistory of stent placement.Continue with Plavix, statin-Continue to monitor.14. DebilityStatus ChronicA&P-Supportive care-Consider PT/OT when patient is more alert.15. HypoalbuminemiaStatus ChronicA&PEncourage p.o. intake. Nutrition supplementation.Ensure p.o. 3 times daily.16. Polysubstance abuseStatus ChronicA&PThiamine, folic acid, multivitamin, no signs of kbiybdtxtd58. HypernatremiaStatus ResolvedA&DMjpjntwqh14. HyperglycemiaStatus AcuteA&PMonitor, taper rupvnqd17. T1-T2 SUBACUTE FRACTUREStatus AcuteA&PPT, OT, fall precaution, pain medication as haltjzu94. Anemia of chronic diseaseStatus AcuteA&PWorsening anemia, no signs of bleeding, transfuse 3unit PRBC with appropriateresponse. Will monitor, further work-up as outpatientAdditional Mkeys41-slso-zjy female patient underlying medical history of COPD O2 dependent,spinal stenosis, depression, dyslipidemia, type 2 diabetes, nicotine addiction,anxiety, hypothyroidism, debility, CKD, peripheral vascular disease,hypoalbuminemia, polysubstance abuse, initially admitted to [facility] for right upper lobe pneumonia, sepsis, [...] rce(s) Supporting Document(s) ID Date Data Source [id number] 06/03/2020 06:12:00 AM EDT [facility] Name Value Range Interpretation Code Description Data Rosa rce(s) Supporting Document(s) FGLU 315 mg/dL 70-[address] [facility] ID Date Data Source [id number] 06/02/2020 09:04:00 PM EDT [facility] Name Value Range Interpretation Code Description Data Rosa rce(s) Supporting Document(s) FGLU 309 mg/dL 70-[address] [facility] ID Date Data Source [id number] 06/02/2020 06:12:00 PM EDT [facility] Name Value Range Interpretation Code Description Data Rosa rce(s) Supporting Document(s) FGLU 344 mg/dL 70-[address] [facility] ID Date Data Source [id number] 06/02/2020 03:29:00 PM EDT [address] [id number] NOTEPATIENT NAME: ELA PONCE BATTENDING PHYSICIAN: MICHAEL WANG, MDAUTHOR: Breezy GA, Zhang. DATE: 05/18/20 MR#: [id number] NOTE DATE: 06/02/20 RM#: [id number] TIME: 1539 [...] cannula Nasal cannulaO2 Flow Rate 3L 3L 7NOfZ09906/02551 0748 0749 0749 0850Temp 97.7Pulse 76 76Resp 20B/P 170/79 170/79 170/79 170/79B/P MeanPulse Ox 93O2 Delivery Nasal cannula Nasal cannulaO2 Flow Rate 3L 3VPpO47206/02115 1334Temp 98.2Pulse 70 62Resp 17B/P 154/68 148/68B/P MeanPulse Ox 98O2 Delivery Nasal cannulaO2 Flow Rate 0WAtN8Unxzcn/OutputIntake/Output Summary 24 hours06/01 1900 06/02 0700Intake Total [...] Status mood neutral, no hallucinationsResultsLaboratory DataRecent Labs-24 hours06/01202997 4566 0431 9942 1121ChemistryPOC Glucose (70 - 110 mg/dL) 191 [...] essential hypertension Qualified Code: I10 - Essential(primary) cihwnnswahmu35. CKD (chronic kidney disease)Status ChronicA&P-Monitor renal function.11. DiabetesStatus ChronicA&PComplicated with hypoglycemia and hyperglycemiaLevemir 10 units daily, continue NovoLog via protocol, close monitoring, bsdqpitzdycdk69. AnxietyStatus AcuteA&PContinue current nwjmjyzuye40. PVD (peripheral vascular disease)Status ChronicA&PHistory of stent placement.Continue with Plavix, statin-Continue to monitor.14. DebilityStatus ChronicA&P-Supportive care-Consider PT/OT when patient is more alert.15. HypoalbuminemiaStatus ChronicA&PEncourage p.o. intake. Nutrition supplementation.Ensure p.o. 3 times daily.16. Polysubstance abuseStatus ChronicA&PThiamine, folic acid, multivitamin, no signs of bevlwjzyst76. HypernatremiaStatus ResolvedA&XLnjowyfiq40. HyperglycemiaStatus AcuteA&PMonitor, taper obmvoxn46. T1-T2 SUBACUTE FRACTUREStatus AcuteA&PPT, OT, fall precaution, pain medication as zwgehme14. Anemia of chronic diseaseStatus AcuteA&PWorsening anemia, no signs of bleeding, transfuse 3unit PRBC with appropriateresponse. Will monitor, further work-up as outpatientAdditional Fjqtn86-sqdy-beh female patient underlying medical history of COPD O2 de pendent,spinal stenosis, depression, dyslipidemia, type 2 diabetes, nicotine addiction,anxiety, hypothyroidism, debility, CKD, peripheral vascular disease,hypoalbuminemia, polysubstance abuse, initially admitted to [facility] for right upper lobe pneumonia, sepsis, deconditioning with frequentfall, transferred given complains of back pain and worsening leukocytosisDVT prophylaxis Heparin subcuDisposition short-term rehabResuscitation status Full codePlan discussed with patientCase discussed with case management specialist, nursing staffVTE ProphylaxisVTE Prophylaxis: Heparin subcu.DATE SIGNED: 06/02/20 Electronically SignedTIME SIGNED: 1533 SAAD FRIED MD Name Value Range Interpretation Code Description Data Rosa rce(s) Supporting Document(s) ID Date Data Source [id number] 06/02/2020 01:01:00 PM EDT [facility] Name Value Range Interpretation Code Description Data Rosa rce(s) Supporting Document(s) FGLU 127 mg/dL 70-[address] [facility] ID Date Data Source [id number] 06/02/2020 07:28:00 AM EDT [facility] Name Value Range Interpretation Code Description Data Rosa rce(s) Supporting Document(s) FGLU 237 mg/dL 70-110 [facility] ID Date Data Source [id number] 06/02/2020 05:41:00 AM EDT [facility] Name Value Range Interpretation Code Description Data Rosa rce(s) Supporting Document(s) Hemoglobin 10.6 g/dL 12.0-16.[address] [facility] ID Date Data Source [id number] 06/01/2020 11:28:00 PM EDT [facility] Name Value Range Interpretation Code Description Data Rosa rce(s) Supporting Document(s) FGLU 181 mg/dL 70-110 [facility] ID Date Data Source [id number] 06/01/2020 08:53:00 PM EDT [facility] Name Value Range Interpretation Code Description Data Rosa rce(s) Supporting Document(s) FGLU 191 mg/dL 70-110 [facility] ID Date Data Source [id number] 06/01/2020 03:15:00 PM EDT [facility] [address] [id number] NOTEPATIENT NAME: ELA PONCE PHYSICIAN: MICHAEL WANG MDAUTHOR: Selma Caballero. DATE: 05/18/20 MR#: [id number] NOTE DATE: 06/01/20 RM#: [id number] TIME: 1519 [...] Nasal cannulaO2 Flow Rate 3 l 3L 3YUqU49606/01 0625 0736 0737 0737Temp 98.1Pulse 75 75Resp 19B/P 173/74 180/90 180/90 180/90 180/90B/P MeanPulse Ox 93 94O2 Delivery Nasal cannula Nasal cannulaO2 Flow Rate 3L 3WQwH48206/01 0934TempPulse 77RespB/P 180/79B/P MeanPulse OxO2 Delivery Nasal cannulaO2 Flow Rate 2CZsA1Ymmbct/OutputIntake/Output Summary 24 hours05/31 1900 06/01 0700Intake Total [...] Status mood neutral, no hallucinationsResultsLaboratory DataRecent Labs-24 hours05/3165201110 11ChemistrySodium (136 - 147 mmol/L) 143Potassium (3.5 - [...] essential hypertension Qualified Code: I10 - Essential(primary) dilpogajirco75. CKD (chronic kidney disease)Status Uhbydby76. DiabetesStatus Xhzklco98. AnxietyStatus Acute13. PVD (peripheral vascular disease)Status Blffqnm26. DebilityStatus Avpmsij85. HypoalbuminemiaStatus Gevenyg61. Polysubstance abuseStatus Rwdtazd43. HyperglycemiaStatus Acute18. T1-T2 SUBACUTE FRACTUREStatus Acute19. Anemia [...] essential hypertension Qualified Code: I10 - Essential(primary) nsbqlcswimqz22. CKD (chronic kidney disease)Status ChronicA&PStable continue to [...] this patient at this time. [facility]will await [facility]. This plan is the patient's wishes.Resuscitation status Full codePlan discussed with patient, romeoMando discussed with case management specialist, nursing staffDATE SIGNED: 06/01/20 Electronically SignedTIME SIGNED: 1519 CR FAJARDO Name Value Range Interpretation Code Description Data Rosa rce(s) Supporting Document(s) ID Date Data Source [id number] 06/01/2020 03:18:00 PM EDT [place] [facility] Name Value Range Interpretation Code Description Data Rosa rce(s) Supporting Document(s) FGLU 157 mg/dL 70-[address] [facility] ID Date Data Source [id number] 06/01/2020 06:19:00 AM EDT [facility] Name Value Range Interpretation Code Description Data Rosa e(s) Supporting Document(s) FGLU 215 mg/dL 70-[address] [facility] ID Date Data Source [id number] 06/01/2020 05:52:00 AM EDT [facility] Name Value Range Interpretation Code Description Data Rosa rce(s) Supporting Document(s) GLU 179 mg/dL 70-[address] [facility] Patients taking Sulfasalazine may have f alsely depressedGlucose levels. Patients taking Sulfapyridine may havefalsely elevated Glucose levels. Patients should be drawnfor Glucose before the initial administration of eitherdrug. BUN 29 mg/dL 7-[address] [facility] CRE 1.100 mg/dL 0.500-1.300 [facility] GFR 52 mL/min [facility] CHLORIDE 110 mmol/L 99-110 [facility] NA 143 mmol/L 136-147 [facility] POTASSIUM 4.0 mmol/L 3.5-5.1 [facility] TCO2 30 mmol/L 20-33 [facility] ANION GAP 7.0 10.0-20.0 [facility] CA 8.4 mg/dL 8.3-10.7 [facility] ALKALINE PHOS 191 U/L 45-[address] [facility] TP 5.9 g/dL 6.0-7.8 [facility] ALB 2.3 g/dL 3.5-5.0 [facility] ESRD Dialysis patient Albumin reference range: 2.9-4.4 g/dL GL 3.6 g/dL 2.3-3.5 [facility] A/G 0.6 1.0-2.5 [facility] T. BILIRUBIN 0.5 mg/dL 0.1-1.1 [facility] [place] Total Bilirubin is n ot recommended forpatients undergoing treatment with eltrombopag (Promacta)due to the potential for falsely elevated results. ALTI 31 U/L 6-54 [facility] Patients taking Sulfasalazine and/or Sul fapyridine may havefalsely depressed ALT levels. Patients should be drawn forALT before the initial administration of either drug. AST 33 U/L 6-38 [facility] Patients taking Sulfasalazine and/or Sul fapyridine may havefalsely depressed AST levels. Patients should be drawn forAST before the initial administration of either drug. ID Date Data Source [id number] 06/01/2020 05:52:00 AM EDT [facility] Name Value Range Interpretation Code Description Data Rosa rce(s) Supporting Document(s) MAGNESIUM 1.8 mg/dL 1.6-2.6 [facility] ID Date Data Source [id number] 06/01/2020 05:27:00 AM EDT [facility] jer Name Value Range Interpretation Code Description Data Rosa rce(s) Supporting Document(s) WBC 9.52 x10E3/uL 4.0-10.5 [facility] RBC 3.54 x10E6/uL 4.20-5.[address] [facility] Hemoglobin 10.6 g/dL 12.0-16.[address] [facility] Delta: 7.6 on 05/31/20-499 Hematocrit 32.3 % 37.0-47.[address] [facility] Delta: 24.1 on 05/31/20-499 MCV 91.2 fL 81.0-99.[address] [facility] Delta: 97.2 on 05/31/20 MCH 29.9 pg 27.0-31.0 [facility] MCHC 32.8 g/dL 32.7-35.6 [facility] RDW 18.0 % 11.5-14.[address] [facility] Platelet count 158 x10E3/uL 150-450 [facility] ital MPV 9.5 fl 6.9-9.5 [facility] Neutrophils 82.7 % 34-[address] [facility] Lymphocytes 7.7 % 25-[address] [facility] Monocytes 6.9 % 1.7-10.6 [facility] Eosinophils 1.7 % 0.4-7.0 [facility] Basophils 0.2 % 0.1-2.0 [facility] Imm. Gran. 0.8 % 0.1-2.0 [facility] Abs. Neutro. 7.87 x10E3/uL 1.2-7.6 [facility] Abs. Lymph. 0.73 x10E3/uL 1.0-3.5 [facility] Abs. [place]. 0.66 x10E3/uL 0.1-1.0 [facility] Abs. Eosin. 0.16 x10E3/uL 0.1-0.7 [facility] Abs. Baso. 0.02 x10E3/uL 0.0-0.1 [facility] Abs. Imm. Gran. 0.08 x10E3/uL 0.0-0.1 [facility] [place] [facility] ANRBC% 0 % [address] [facility] ID Date Data Source [id number] 06/01/2020 12:26:00 AM EDT [facility] Name Value Range Interpretation Code Description Data Rosa rce(s) Supporting Document(s) FGLU 190 mg/dL 70-[address] [facility] ID Date Data Source [id number] 05/31/2020 06:26:00 PM EDT [facility] Name Value Range Interpretation Code Description Data Rosa rce(s) Supporting Document(s) FGLU 192 mg/dL 70-[address] [facility] ID Date Data Source [id number] 05/31/2020 02:27:00 PM EDT [address] [id number] NOTEPATIENT NAME: KRIS,ELA BATTENKEIKO PHYSICIAN: MICHAEL WANG MDAUTHOR: Selma Caballero. DATE: 05/18/20 MR#: [id number] NOTE DATE: 05/31/20 RM#: 232EVALUATION TIME: 1508 [...] upset [facility]. Mild clinical dehydration is resolved.Awaiting [...] cannula Nasal cannulaO2 Flow Rate 3 3L 7TIoY08205/31600 0831 0835 0837 0840Temp 97.8Pulse 74 75Resp 16B/P 165/72 142/58 142/58 142/58B/P MeanPulse Ox 94O2 Delivery Nasal cannula Nasal cannulaO2 Flow Rate 4L 8ZzT730/207459EsqpZuvmk 75RespB/P 142/58B/P MeanPulse OxO2 DeliveryO2 Flow HchgJyE2Vejvah/OutputIntake/Output Summary 24 hours05/30 1900 05/31 0700Intake Total [...] essential hypertension Qualified Code: I10 - Essential(primary) uwoeiephmizg41. CKD (chronic kidney disease)Status Imldlls41. DiabetesStatus Iremzus52. AnxietyStatus Acute13. PVD (peripheral vascular disease)Status Yhiyziq63. DebilityStatus Lzgnirg44. HypoalbuminemiaStatus Hiqueoj88. Polysubstance abuseStatus Yaozynr53. HyperglycemiaStatus Acute18. T1-T2 SUBACUTE FRACTUREStatus Acute19. Anemia [...] essential hypertension Qualified Code: I10 - Essential(primary) wefaemubdzgl00. CKD (chronic kidney disease)Status ChronicA&PStable continue to [...] this patient at this time. Wewill await [facility] short-term rehab bed. This plan [...] rce(s) Supporting Document(s) ID Date Data Source [id number] 05/31/2020 03:10:00 PM EDT [place] [facility] Name Value Range Interpretation Code Description Data Rosa rce(s) Supporting Document(s) FGLU 210 mg/dL 70-[address] [facility] ID Date Data Source [id number] 05/31/2020 10:22:00 AM EDT [facility]: off am labs please Name Value Range Interpretation Code Description Data Rosa rce(s) Supporting Document(s) RETIC % 4.56 % 0.5-2.[address] [facility] RETIC ABS. # 0.11 x10E6/uL 0.02-0.15 [facility] FRAC 16.00 % 15-20 [facility] HEMO 33.9 pg 29-[address] [facility] ID Date Data Source [id number] 05/31/2020 09:15:00 AM EDT [facility] COM[facility] TO LAB: off am labs please Name Value Range Interpretation Code Description Data Rosa rce(s) Supporting Document(s) SUZY 163.6 ng/mL 8.0-252.[address] [facility] ID Date Data Source [id number] 05/31/2020 08:32:00 AM EDT [facility] COM[facility] TO [facility]: off am labs please Name Value Range Interpretation Code Description Data Rosa rce(s) Supporting Document(s) FE 62 ug/dL 42-[address] [facility] Patients treated with metal-binding drug s(i.e. Deferoxamine) may have depressed iron values aschelated iron may not properly react in the iron assay. UNBOUND IRON BC 127 ug/dL 130-375 [facility] TOTAL IRON BC 189.0 ug/dL 250-[facility]ON SAT. 32.8 % 30-[address] [facility] ID Date Data Source [id number] 05/31/2020 09:20:00 AM EDT [facility] jer Name Value Range Interpretation Code Description Data Rosa rce(s) Supporting Document(s) FGLU 300 mg/dL 70-[address] [facility] ID Date Data Source [id number] 06/01/2020 07:46:00 PM EDT [facility] jer Name Value Range Interpretation Code Description Data Rosa rce(s) Supporting Document(s) [id number] TRANSFUSED PRODUCT: PACKED CELLS CO UNT: 2 [facility] ID Date Data Source [id number] 06/01/2020 07:46:00 PM EDT [facility] *Clinically Significant Acute Blood [place] s N *Hgb < or = to 7.0g/dL or Hct < or = to 21% N *Hgb < 8.0g/dL or Hct < 24% and PT Hemodynamically Unstable N *Hgb < 8.0 for Anemia and an Acute [place] or Unstable Angina Y *Hgb < 9.0g/dL with Chronic Transfusion Therapy N *Maximum Blood Order Schedule N *Other (must indicate reason for transfusion if not above): anemia w/ CAD, COPDIrradiated? NCMV Negative? NTransfuse 2units over 3UNIT NUMBER: [id number]: YPRODUCT: LEUKO REDUCED RED BLOOD CELLSSOURCE: [facility] Koko [facility] TYPE: A NEGATIVEVOLUME: 283MLCROSSMATCH COMPONENTS:00UNIT NUMBER: [id number]: YPRODUCT: LEUKO REDUCED RED BLOOD CELLSSOURCE: [facility] TYPE: A NEGATIVEVOLUME: 309MLCROSSMATCH COMPONENTS:00 Name Value Range Interpretation Code Description Data Rosa rce(s) Supporting Document(s) ID Date Data Source [id number] 06/01/2020 07:46:00 PM EDT [facility] *Clinically Significant Acute Blood [place] s N *Hgb < or = to 7.0g/dL or Hct < or = to 21% N *Hgb < 8.0g/dL or Hct < 24% and PT Hemodynamically Unstable N *Hgb < 8.0 for Anemia and an Acute [place] or Unstable Angina Y *Hgb < 9.0g/dL with Chronic Transfusion Therapy N *Maximum Blood Order Schedule N *Other (must indicate reason for transfusion if not above): anemia w/ CAD, COPDIrradiated? NCMV Negative? NTransfuse 2units over 3 Name Value Range Interpretation Code Description Data Rosa rce(s) Supporting Document(s) ANTIBODY ID ANTI D N [facility] CAN NOT RULE OUT C AND E ID Date Data Source [id number] 06/01/2020 07:46:00 PM EDT [facility] *Clinically Significant Acute Blood [place] s N *Hgb < or = to 7.0g/dL or Hct < or = to 21% N *Hgb < 8.0g/dL or Hct < 24% and PT Hemodynamically Unstable N *Hgb < 8.0 for Anemia and an Acute [place] or Unstable Angina Y *Hgb < 9.0g/dL with Chronic Transfusion Therapy N *Maximum Blood Order Schedule N *Other (must indicate reason for transfusion if not above): anemia w/ CAD, COPDIrradiated? NCMV Negative? NTransfuse 2units over 3 Name Value Range Interpretation Code Description Data Rosa rce(s) Supporting Document(s) BLOOD TYPE AB NEGATIVE N [facility] ANTIBODY [facility]CREEN POSITIVE [facility] ID Date Data Source [id number] 05/31/2020 09:35:00 AM EDT [facility] Name Value Range Interpretation Code Description Data Rosa rce(s) Supporting Document(s) DATIgG NEGATIVE NEGATIVE [facility] ID Date Data Source [id number] 05/31/2020 06:49:00 AM EDT [facility] jer Name Value Range Interpretation Code Description Data Rosa rce(s) Supporting Document(s) MAGNESIUM 2.1 mg/dL 1.6-2.6 [facility] ID Date Data Source [id number] 05/31/2020 06:49:00 AM EDT [facility] jer Name Value Range Interpretation Code Description Data Rosa rce(s) Supporting Document(s) GLU 224 mg/dL 70-[address] [facility] Patients taking Sulfasalazine may have f alsely depressedGlucose levels. Patients taking Sulfapyridine may havefalsely elevated Glucose levels. Patients should be drawnfor Glucose before the initial administration of eitherdrug. BUN 27 mg/dL 7-[address] [facility] CRE 1.120 mg/dL 0.500-1.300 [facility] GFR 51 mL/min [facility] CHLORIDE 110 mmol/L 99-110 [facility] NA 143 mmol/L 136-147 [facility] POTASSIUM 4.5 mmol/L 3.5-5.1 [facility] TCO2 29 mmol/L 20-33 [facility] ANION GAP 8.5 10.0-20.[address] [facility] CA 8.2 mg/dL 8.3-10.7 [facility] ALKALINE PHOS 159 U/L 45-[address] [facility] TP 5.1 g/dL 6.0-7.8 [facility] ALB 2.1 g/dL 3.5-5.0 [facility] ESRD Dialysis patient Albumin reference range: 2.9-4.4 g/dL GL 3.0 g/dL 2.3-3.5 [facility] A/G 0.7 1.0-2.[address] [facility] T. BILIRUBIN 0.3 mg/dL 0.1-1.1 [facility] [place] Total Bilirubin is n ot recommended forpatients undergoing treatment with eltrombopag (Promacta)due to the potential for falsely elevated results. ALTI 26 U/L 6-54 [facility] Patients taking Sulfasalazine and/or Sul fapyridine may havefalsely depressed ALT levels. Patients should be drawn forALT before the initial administration of either drug. AST 18 U/L 6-[address] [facility] Patients taking Sulfasalazine and/or Sul fapyridine may havefalsely depressed AST levels. Patients should be drawn forAST before the initial administration of either drug. ID Date Data Source [id number] 05/31/2020 06:27:00 AM EDT [facility] Name Value Range Interpretation Code Description Data Rosa rce(s) Supporting Document(s) WBC 10.61 x10E3/uL 4.0-10.5 [facility] RBC 2.48 x10E6/uL 4.20-5.[address] [facility] Hemoglobin 7.6 g/dL 12.0-16.[address] [facility] Hematocrit 24.1 % 37.0-47.[address] [facility] MCV 97.2 fL 81.0-99.0 [facility] MCH 30.6 pg 27.0-31.0 [facility] MCHC 31.5 g/dL 32.7-35.[address] [facility] RDW 16.6 % 11.5-14.0 [facility] Platelet count 167 x10E3/uL 150-450 [facility] ital MPV 10.0 fl 6.9-9.5 [facility] Neutrophils 84.1 % 34-64 [facility] Lymphocytes 8.2 % 25-[address] [facility] Monocytes 5.8 % 1.7-10.[address] [facility] Eosinophils 0.8 % 0.4-7.[address] [facility] Basophils 0.3 % 0.1-2.[address] [facility] Imm. Gran. 0.8 % 0.1-2.[address] [facility] Abs. Neutro. 8.92 x10E3/uL 1.2-7.6 [facility] Abs. Lymph. 0.87 x10E3/uL 1.0-3.5 [facility] Abs. [place]. 0.62 x10E3/uL 0.1-1.0 [facility] Abs. Eosin. 0.09 x10E3/uL 0.1-0.7 [facility] Abs. Baso. 0.03 x10E3/uL 0.0-0.1 [facility] l Abs. Imm. Gran. 0.08 x10E3/uL 0.0-0.1 [facility] spital ANRBC% 0 % 0 [facility] ID Date Data Source [id number] 05/31/2020 01:23:00 AM EDT [facility] Name Value Range Interpretation Code Description Data Rosa rce(s) Supporting Document(s) URINE RBC 0-2 RBCs/HPF NONE SEEN [facility] URINE WBC 11-20 WBCs/HPF NONE SEEN [facility] l A URINE CULTURE HAS BEEN ADDED TO THIS S PECIME URINE BACTERIA Few NONE SEEN [facility] URINE EPI. Few NONE SEEN [facility] URINE YEAST Many NONE SEEN [facility] A URINE CULTURE HAS BEEN ADDED TO THIS S PECIMEN ID Date Data Source [id number] 05/31/2020 01:23:00 AM EDT [facility] jer Name Value Range Interpretation Code Description Data Rosa rce(s) Supporting Document(s) URINE COLOR Yellow [facility] UAPR Cloudy [facility] UGLU Negative NEGATIVE [facility] URINE BILIRUBIN Negative NEGATIVE [facility] UKET Negative NEGATIVE [facility] USG 1.015 1.010-1.025 [facility] UBLO Negative NEGATIVE [facility] UpH 5.5 5.0-8.0 [facility] UPRO 3+ Negative [facility] UUB 0.2 mg/dL 0.2-1.0 [facility] UNIT Negative Negative [facility] ULEU Trace Negative [facility] ID Date Data Source [id number] 05/30/2020 11:33:00 PM EDT [facility] Value Range Interpretation Code Description Data Rosa rce(s) Supporting Document(s) FGLU 214 mg/dL 70-[address] [facility] ID Date Data Source [id number] 05/30/2020 04:51:00 PM EDT [facility] Name Value Range Interpretation Code Description Data Rosa rce(s) Supporting Document(s) FGLU 129 mg/dL 70-[address] [facility] ID Date Data Source [id number] 05/30/2020 02:17:00 PM EDT [place] [place], [place] [id number] NOTEPATIENT NAME: ELA PONCE PHYSICIAN: MICHAEL WANG, MDAUTHOR: Selma Caballero. DATE: 05/18/20 MR#: [id number] NOTE DATE: 05/30/20 RM#: [id number] TIME: 1426 : 45SubjectiveEvents Since Last EntryPatient seen and examined today. Chart reviewed. She did not pass a PT homesafety evaluation yesterday and is unsafe for discharge to home. PT feels sheneeds short term rehab. Patient feeling a bit fatigued today. She is quiteupset that she is not getting rehab at [facility]. Labs show some milddehydration. Will [...] cannula Nasal cannulaO2 Flow Rate 3L 3L 9EScQ85405/30 0930 0930 0931 0938TempPulse 82 82RespB/P 169/65 169/65 169/65 169/65 B/P MeanPulse OxO2 Delivery Nasal cannulaO2 Flow Rate 7ZcO0Wivvcq/OutputIntake/Output Summary 24 hours05/29 1900 05/30 0700Intake Total [...] essential hypertension Qualified Code: I10 - Essential(primary) ktubeltvoaqe95. CKD (chronic kidney disease)Status Zwfcnwu66. DiabetesStatus Vajpbau08. AnxietyStatus Acute13. PVD (peripheral vascular disease)Status Xjkadov40. DebilityStatus Riumjql75. HypoalbuminemiaStatus Bsjxdlb44. Polysubstance abuseStatus Yiaokcw44. HyperglycemiaStatus Acute18. T1-T2 SUBACUTE FRACTUREStatus Acute19. Anemia [...] essential hypertension Qualified Code: I10 - Essential(primary) ceccoleehnva88. CKD (chronic kidney disease)Status ChronicA&PStable continue to [...] this patient at this time. Wewill [facility]. This plan is the patient's wishes.Resuscitation status Full codePlan discussed with patientCase discussed with case management specialist, nursing staffDATE SIGNED: 05/30/20 Electronically SignedTIME SIGNED: 1426 CR TASHA FAJARDO Name Value Range Interpretation Code Description Data Rosa rce(s) Supporting Document(s) ID Date Data Source [id number] 05/30/2020 11:47:00 AM EDT [facility] Name Value Range Interpretation Code Description Data Rosa rce(s) Supporting Document(s) FGLU 325 mg/dL 70-[address] [facility] ID Date Data Source [id number] 05/30/2020 09:55:00 AM EDT [facility] Exam Number: [id number] OF EXAMINATIO N: 05/30/2020 9:04 EDTCHEST SINGLE [...] rce(s) Supporting Document(s) ID Date Data Source [id number] 05/30/2020 10:32:00 AM EDT [facility] Name Value Range Interpretation Code Description Data Rosa rce(s) Supporting Document(s) GLU 285 mg/dL 70-[address] [facility] Patients taking Sulfasalazine may have f alsely depressedGlucose levels. Patients taking Sulfapyridine may havefalsely elevated Glucose levels. Patients should be drawnfor Glucose before the initial administration of eitherdrug. BUN 25 mg/dL 7-[address] [facility] CRE 1.330 mg/dL 0.500-1.[address] [facility] GFR 41 mL/min [facility] CHLORIDE 108 mmol/L 99-110 [facility] NA 141 mmol/L 136-147 [facility] POTASSIUM 4.0 mmol/L 3.5-5.1 [facility] TCO2 29 mmol/L 20-33 [facility] ANION GAP 8.0 10.0-20.0 [facility] CA 8.1 mg/dL 8.3-10.7 [facility] ALKALINE PHOS 170 U/L 45-[address] [facility] TP 5.2 g/dL 6.0-7.8 [facility] ALB 2.2 g/dL 3.5-5.0 [facility] ESRD Dialysis patient Albumin reference range: 2.9-4.4 g/dL GL 3.0 g/dL 2.3-3.5 [facility] A/G 0.7 1.0-2.5 [facility] T. BILIRUBIN 0.3 mg/dL 0.1-1.1 [facility] [place] Total Bilirubin is n ot recommended forpatients undergoing treatment with eltrombopag (Promacta)due to the potential for falsely elevated results. ALTI 30 U/L 6-54 [facility] Patients taking Sulfasalazine and/or Sul fapyridine may havefalsely depressed ALT levels. Patients should be drawn forALT before the initial administration of either drug. AST 24 U/L 6-38 [facility] Patients taking Sulfasalazine and/or Sul fapyridine may havefalsely depressed AST levels. Patients should be drawn forAST before the initial administration of either drug. ID Date Data Source [id number] 05/30/2020 06:22:00 AM EDT [facility] jer Name Value Range Interpretation Code Description Data Rosa rce(s) Supporting Document(s) FGLU 259 mg/dL 70-[address] [facility] ID Date Data Source [id number] 05/29/2020 08:39:00 PM EDT [facility] Name Value Range Interpretation Code Description Data Rosa rce(s) Supporting Document(s) FGLU 314 mg/dL 70-[address] [facility] ID Date Data Source [id number] 05/29/2020 10:01:00 PM EDT [facility] Name Value Range Interpretation Code Description Data Rosa rce(s) Supporting Document(s) FGLU 108 mg/dL 70-110 [facility] ID Date Data Source [id number] 05/29/2020 01:50:00 PM EDT [facility] [place] [id number] NOTEPATIENT NAME: ELA PONCE PHYSICIAN: MICHAEL WANG MDAUTHOR: Selma Caballero. DATE: 05/18/20 MR#: [id number] NOTE DATE: 05/29/20 RM#: [id number] TIME: 1353 [...] Ox 96O2 Delivery Nasal cannulaO2 Flow Rate [id number] 7248 0803 0811 0819Temp 98.5 97.7Pulse 85 92 90 90Resp 17 17B/P 165/75 161/75 187/87 187/87B/P MeanPulse Ox 95 90O2 Delivery Nasal cannulaO2 Flow Rate 8DdE21105/29 0825TempPulseRespB/P 187/87 187/87B/P MeanPulse OxO2 DeliveryO2 Flow AjpkWpJ8Ifmvuv/OutputIntake/Output Summary 24 hours05/28 1900 05/29 0700Intake Total [...] Immat Gran (auto) (0.0 - 0.1 Cancelled 0.69r73S8/uL)Absolute Neuts (auto) (1.2 - 7.6 Cancelled 11.00 Hx10E3/uL)Absolute Lymphs (auto) (1.0 - 3.5 Cancelled 0.92 Lx10E3/uL)Absolute Monos (auto) (0.1 - 1.0 Cancelled 0.60j60B4/uL)Absolute Eos (auto) (0.1 - 0.7 Cancelled 0.20l73Y6/uL)Absolute Basos (auto) (0.0 - 0.1 Cancelled 0.25p08Q0/uL)Nucleated RBC % (auto) (0 %) 004/617012WntnniuzqXZB Glucose (70 - 110 mg/dL) 242 HResults [...] essential hypertension Qualified Code: I10 - Essential(primary) gogjusaczlyj37. CKD (chronic kidney disease)Status Lqdmcep74. DiabetesStatus Jqkdjne69. AnxietyStatus Acute13. PVD (peripheral vascular disease)Status Mlzmsng49. DebilityStatus Gumqets48. HypoalbuminemiaStatus Etzpvev74. Polysubstance abuseStatus Dvktmtx98. HyperglycemiaStatus Acute18. T1-T2 SUBACUTE FRACTUREStatus Acute19. Anemia [...] essential hypertension Qualified Code: I10 - Essential(primary) xnfcbdbianec63. CKD (chronic kidney disease)Status ChronicA&PStable continue to [...] chronic steroid useTime spent 35 minutesDischarge to [facility] versus discharged home if cleared by PTtomorrow.Resuscitation status Full codePlan discussed with patient, sonCase discussed with case management specialist, nursing staffDATE SIGNED: 05/29/20 Electronically SignedTIME SIGNED: 9775 CR FAJARDO Name Value Range Interpretation Code Description Data Rosa rce(s) Supporting Document(s) ID Date Data Source [id number] 05/29/2020 01:29:00 PM EDT [facility] Name Value Range Interpretation Code Description Data Rosa rce(s) Supporting Document(s) FGLU 242 mg/dL 70-[address] [facility] ID Date Data Source [id number] 05/29/2020 06:10:00 AM EDT [facility] Name Value Range Interpretation Code Description Data Rosa rce(s) Supporting Document(s) FGLU 259 mg/dL 70-[address] [facility] ID Date Data Source [id number] 05/29/2020 05:58:00 AM EDT [facility] jer Name Value Range Interpretation Code Description Data Rosa rce(s) Supporting Document(s) C-REACTIVE PROT 5.98 mg/dL 0.00-0.49 [facility] ID Date Data Source [id number] 05/29/2020 05:58:00 AM [facility] Value Range Interpretation Code Description Data Rosa rce(s) Supporting Document(s) MAGNESIUM 2.1 mg/dL 1.6-2.[address] [facility] ID Date Data Source [id number] 05/29/2020 05:58:00 AM EDT [facility] Name Value Range Interpretation Code Description Data Rosa rce(s) Supporting Document(s) GLU 204 mg/dL 70-[address] [facility] Patients taking Sulfasalazine may have f alsely depressedGlucose levels. Patients taking Sulfapyridine may havefalsely elevated Glucose levels. Patients should be drawnfor Glucose before the initial administration of eitherdrug. BUN 19 mg/dL 7-23 [facility] CRE 1.140 mg/dL 0.500-1.300 [facility] GFR 50 mL/min [facility] CHLORIDE 109 mmol/L 99-110 [facility] NA 143 mmol/L 136-147 [facility] POTASSIUM 4.3 mmol/L 3.5-5.1 [facility] TCO2 28 mmol/L 20-33 [facility] ANION GAP 10.3 10.0-20.0 [facility] CA 8.1 mg/dL 8.3-10.7 [facility] ALKALINE PHOS 143 U/L 45-[address] [facility] TP 5.1 g/dL 6.0-7.8 [facility] ALB 2.3 g/dL 3.5-5.0 [facility] ESRD Dialysis patient Albumin reference range: 2.9-4.4 g/dL GL 2.8 g/dL 2.3-3.5 [facility] A/G 0.8 1.0-2.5 [facility] T. BILIRUBIN 0.4 mg/dL 0.1-1.1 [facility] [place] Total Bilirubin is n ot recommended forpatients undergoing treatment with eltrombopag (Promacta)due to the potential for falsely elevated results. ALTI 26 U/L 6-54 [facility] Patients taking Sulfasalazine and/or Sul fapyridine may havefalsely depressed ALT levels. Patients should be drawn forALT before the initial administration of either drug. AST 25 U/L 6-38 [facility] Patients taking Sulfasalazine and/or Sul fapyridine may havefalsely depressed AST levels. Patients should be drawn forAST before the initial administration of either drug. ID Date Data Source [id number] 05/29/2020 05:27:00 AM EDT [facility] jer Name Value Range Interpretation Code Description Data Rosa rce(s) Supporting Document(s) WBC 12.97 x10E3/uL 4.0-10.5 [facility] RBC 2.71 x10E6/uL 4.20-5.[address] [facility] Hemoglobin 8.3 g/dL 12.0-16.[address] [facility] Hematocrit 25.4 % 37.0-47.[address] [facility] MCV 93.7 fL 81.0-99.[address] [facility] MCH 30.6 pg 27.0-31.[address] [facility] MCHC 32.7 g/dL 32.7-35.[address] [facility] RDW 15.9 % 11.5-14.0 [facility] Platelet count 157 x10E3/uL 150-450 [facility] MPV 9.8 fl 6.9-9.5 [facility] Neutrophils 84.9 % 34-64 [facility] Lymphocytes 7.1 % 25-45 [facility] Monocytes 6.2 % 1.7-10.6 [facility] Eosinophils 0.8 % 0.4-7.[address] [facility] Basophils 0.3 % 0.1-2.0 [facility] Imm. Gran. 0.7 % 0.1-2.0 N [facility] Abs. Neutro. 11.00 x10E3/uL 1.2-7.6 [facility] Abs. Lymph. 0.92 x10E3/uL 1.0-3.5 [facility] Abs. [place]. 0.81 x10E3/uL 0.1-1.0 [facility] Abs. Eosin. 0.11 x10E3/uL 0.1-0.7 [facility] Abs. Baso. 0.04 x10E3/uL 0.0-0.1 [facility] Abs. Imm. Gran. 0.09 x10E3/uL 0.0-0.1 N [facility] spital ANRBC% 0 % 0 N [facility] ID Date Data Source [id number] 05/28/2020 11:36:00 PM EDT [facility] Name Value Range Interpretation Code Description Data Rosa rce(s) Supporting Document(s) FGLU 166 mg/dL 70-[address] [facility] ID Date Data Source [id number] 05/28/2020 08:24:00 PM EDT [facility] Name Value Range Interpretation Code Description Data Rosa rce(s) Supporting Document(s) FGLU 72 mg/dL 70-[address] [facility] ID Date Data Source [id number] 05/28/2020 12:45:00 PM EDT [facility] [place] [address] [id number] NOTEPATIENT NAME: ELA PONCE PHYSICIAN: MICHAEL WANG, MDAUTHOR: Selma Caballero. DATE: 05/18/20 MR#: [id number] NOTE DATE: 05/28/20 RM#: [id number] TIME: 1251 [...] Musculoskeletal, Aldo, Endocrine,Neurology, Psych, Allergy/ImmunologyObjectiveVital SignsVital Signs-24 HRS05/27 2111 2140 2200 0535Temp 98.3 98.3 98.3Pulse 74 81 76 72Resp 16 17 17B/P 151/64 159/81 151/64 196/79B/P MeanPulse Ox 95 94 94O2 Delivery Nasal cannula Nasal cannulaO2 Flow Rate 2 LITERS [id number]/[id number] 6154 0815TempPulse 83 83RespB/P 175/78 175/78 175/78B/P MeanPulse OxO2 DeliveryO2 Flow VibjFhO6Njhfpo/OutputIntake/Output Summary 24 hours17 1900 04/18 0700Intake Total 1240 350Output Total 2Balance 1238 [...] Status mood neutral, no hallucinationsResultsLaboratory DataRecent Labs-24 hours05/27 05/28 04/921991 0024 0521ChemistrySodium (136 - 147 mmol/L) 144Potassium (3.5 [...] essential hypertension Qualified Code: I10 - Essential(primary) zftkqyftznrz43. CKD (chronic kidney disease)Status Hohfirg70. DiabetesStatus Vobyssk87. AnxietyStatus Acute13. PVD (peripheral vascular disease)Status Skqsulf46. DebilityStatus Yghaymn33. HypoalbuminemiaStatus Hcvnkjr27. Polysubstance abuseStatus Fmkcwou81. HyperglycemiaStatus Acute18. T1-T2 SUBACUTE FRACTUREStatus Acute19. Anemia [...] essential hypertension Qualified Code: I10 - Essential(primary) srrcvbigokxh85. CKD (chronic kidney disease)Status ChronicA&PStable continue to monitor as needed.11. DiabetesStatus ChronicA&PContinue long-acting insulin as well as a CHS with sliding scale coverage.Taper steroids. Blood sugars have not been optimal and will increase long-acting insulin to 10 units subcu daily.12. AnxietyStatus AcuteA&PContinue BuSpar benzodiazepine.13. 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 Note that patient [...] chronic steroid useTime spent 35 minutesDischarge to [facility] versus discharged home if cleared by PTtomorrow.Resuscitation status Full codePlan discussed with patient, sonCase discussed with case management specialist, nursing staffDATE SIGNED: 05/28/20 Electronically SignedTIME SIGNED: 1251 CR [employer] Name Value Range Interpretation Code Description Data Rosa rce(s) Supporting Document(s) ID Date Data Source [id number] 05/28/2020 01:19:00 PM EDT [facility] Name Value Range Interpretation Code Description Data Rosa rce(s) Supporting Document(s) FGLU 125 mg/dL 70-[address] [facility] ID Date Data Source [id number] 05/28/2020 08:34:00 AM EDT [facility] Name Value Range Interpretation Code Description Data Rosa rce(s) Supporting Document(s) FGLU 232 mg/dL 70-[address] [facility] ID Date Data Source [id number] 05/28/2020 06:17:00 AM EDT [facility] Name Value Range Interpretation Code Description Data Rosa rce(s) Supporting Document(s) MAGNESIUM 2.0 mg/dL 1.6-2.[address] [facility] ID Date Data Source [id number] 05/28/2020 06:17:00 AM ED[facility] Name Value Range Interpretation Code Description Data Rosa rce(s) Supporting Document(s) C-REACTIVE PROT 3.70 mg/dL 0.00-0.49 [facility] ID Date Data Source [id number] 05/28/2020 06:17:00 AM EDT [facility] Name Value Range Interpretation Code Description Data Rosa rce(s) Supporting Document(s) GLU 179 mg/dL 70-[address] [facility] Patients taking Sulfasalazine may have f alsely depressedGlucose levels. Patients taking Sulfapyridine may havefalsely elevated Glucose levels. Patients should be drawnfor Glucose before the initial administration of eitherdrug. BUN 21 mg/dL 7-23 [facility] CRE 0.956 mg/dL 0.500-1.300 [facility] GFR > 60 mL/min [facility] CHLORIDE 109 mmol/L 99-110 [facility] NA 144 mmol/L 136-147 [facility] POTASSIUM 4.0 mmol/L 3.5-5.1 [facility] TCO2 28 mmol/L 20-33 [facility] ANION GAP 11.0 10.0-20.0 [facility] CA 8.1 mg/dL 8.3-10.7 [place] [facility] [place] PHOS 149 U/L 45-[address] [facility] TP 5.2 g/dL 6.0-7.8 [facility] ALB 2.4 g/dL 3.5-5.0 [facility] ESRD Dialysis patient Albumin reference range: 2.9-4.4 g/dL GL 2.8 g/dL 2.3-3.5 [facility] A/G 0.9 1.0-2.5 [facility] T. BILIRUBIN 0.3 mg/dL 0.1-1.1 [facility] [place] Total Bilirubin is n ot recommended forpatients undergoing treatment with eltrombopag (Promacta)due to the potential for falsely elevated results. ALTI 30 U/L 6-54 [facility] Patients taking Sulfasalazine and/or Sul fapyridine may havefalsely depressed ALT levels. Patients should be drawn forALT before the initial administration of either drug. AST 26 U/L 6-38 [facility] Patients taking Sulfasalazine and/or Sul fapyridine may havefalsely depressed AST levels. Patients should be drawn forAST before the initial administration of either drug. ID Date Data Source [id number] 05/28/2020 05:00:00 AM EDT [facility] Name Value Range Interpretation Code Description Data Rosa rce(s) Supporting Document(s) WBC 13.52 x10E3/uL 4.0-10.5 [facility] 2.86 x10E6/uL 4.20-5.40 [facility] Hemoglobin 8.7 g/dL 12.0-16.0 [facility] Hematocrit 26.5 % 37.0-47.0 [facility] MCV 92.7 fL 81.0-99.0 [facility] MCH 30.4 pg 27.0-31.0 [facility] MCHC 32.8 g/dL 32.7-35.6 [facility] RDW 15.8 % 11.5-14.0 [facility] Platelet count 157 x10E3/uL 150-450 [facility] MPV 9.8 fl 6.9-9.5 [facility] Neutrophils 84.8 % 34-64 [facility] Lymphocytes 5.8 % 25-45 [facility] Monocytes 6.9 % 1.7-10.6 [facility] Eosinophils 0.8 % 0.4-7.0 [facility] Basophils 0.1 % 0.1-2.0 [facility] Imm. Gran. 1.6 % 0.1-2.0 [facility] Abs. Neutro. 11.46 x10E3/uL 1.2-7.6 [facility] Abs. Lymph. 0.79 x10E3/uL 1.0-3.5 [facility] Abs. [place]. 0.93 x10E3/uL 0.1-1.0 [facility] Abs. Eosin. 0.11 x10E3/uL 0.1-0.7 [facility] Abs. Baso. 0.02 x10E3/uL 0.0-0.1 [facility] Abs. Imm. Gran. 0.21 x10E3/uL 0.0-0.1 [facility] ANRBC% 0.1 % 0 [facility] ID Date Data Source [id number] 05/27/2020 09:58:00 PM EDT [facility] Name Value Range Interpretation Code Description Data Rosa rce(s) Supporting Document(s) FGLU 249 mg/dL 70-110 [facility] ID Date Data Source [id number] 05/27/2020 01:53:00 PM EDT [facility] [address] [id number] NOTEPATIENT NAME: ELA PONCE BATTENKEIKO PHYSICIAN: MICHAEL WANG, DERECKUTHOR: Selma Caballero. DATE: 05/18/20 MR#: [id number] NOTE DATE: 05/27/20 RM#: [id number] TIME: 1356 : 07/21/46SubjectiveEvents Since Last EntryPatient seen and examined today. Chart reviewed. Patient was having somediarrhea last night but received cathartics yesterday. She has only had 2 BMsso far today. She feels fine otherwise. No other complaints. B vitaminswithin normal limits. Hemoglobin improved. No new development. Awaiting [facility]. Discussed plan of care with son at the patient's request.Review of SystemsSystems reviewed and negative Constitutional, Integumentary, Eyes, ENT,Respiratory, Cardiovascular, , Musculoskeletal, Aldo, Endocrine, Neurology,Psych, Allergy/ImmunologyGastrointestinalReports: diarrhea (Improved).ObjectiveVital SignsVital Signs-24 HRS05/26888135 3026 2225 0600Temp 98.3 98.6Pulse 90 89 90Resp 16 16B/P 164/75 164/75 160/88B/P MeanPulse Ox 95 94O2 Delivery Nasal cannula Nasal cannula Nasal cannulaO2 Flow Rate 3L 2 5JEjW14805/[id number] 5142 0842 0842TempPulse 96 96RespB/P 149/72 149/72 149/72B/P MeanPulse OxO2 Delivery Nasal cannulaO2 Flow Rate 2 GKVXZKEeB6Rvzkpj/OutputIntake/Output Summary 24 hours05/26 1900 05/27 0700Intake Total [...] Status mood neutral, no hallucinationsResultsLaboratory DataRecent Labs-24 hours05/2625ChemistrySodium (136 - 147 mmol/L) 142Potassium (3.5 - [...] x10E3/uL) 0.02Nucleated RBC % (auto) (0 %) 004/238871LrhhwtrjuPtspjsw B12 (193 - 986 pg/mL) 677.0Folic Acid [...] essential hypertension Qualified Code: I10 - Essential(primary) slerfwsxjfpb99. CKD (chronic kidney disease)Status Wlxshdq96. DiabetesStatus Ufltylw86. AnxietyStatus Acute13. PVD (peripheral vascular disease)Status Zebpnfh01. DebilityStatus Vtraizo14. HypoalbuminemiaStatus Uouthgm57. Polysubstance abuseStatus Ozagxvu25. HyperglycemiaStatus Acute18. T1-T2 SUBACUTE FRACTUREStatu s Acute19. [...] essential hypertension Qualified Code: I10 - Essential(primary) mrlnqzwycvrh54. CKD (chronic kidney disease)Status ChronicA&PStable continue to [...] chronic steroid useTime spent 35 minutesDis[facility]Res[facility] status Full codePlan discussed with patient, sonCase discussed with case management specialist, nursing staffDATE SIGNED: 05/27/20 Electronically SignedTIME SIGNED: 2205 CR FAJARDO Name Value Range Interpretation Code Description Data Rosa rce(s) Supporting Document(s) ID Date Data Source [id number] 05/28/2020 07:03:00 AM [facility] Name Value Range Interpretation Code Description Data Rosa rce(s) Supporting Document(s) FGLU 213 mg/dL 70-[address] [facility] ID Date Data Source [id number] 05/27/2020 09:56:00 AM EDT [facility] jer Name Value Range Interpretation Code Description Data Rosa rce(s) Supporting Document(s) FOLATE 20.9 ng/mL 3.1-17.[address] [facility] ID Date Data Source [id number] 05/27/2020 09:56:00 AM EDT [facility] Name Value Range Interpretation Code Description Data Rosa rce(s) Supporting Document(s) VITAMIN B12 677.0 pg/mL 193-[address] [facility] ID Date Data Source [id number] 05/27/2020 07:26:00 AM EDT [facility] Name Value Range Interpretation Code Description Data Rosa rce(s) Supporting Document(s) WBC 12.20 x10E3/uL 4.0-10.5 [facility] RBC 2.96 x10E6/uL 4.20-5.[address] [facility] Hemoglobin 9.0 g/dL 12.0-16.[address] [facility] Hematocrit 26.9 % 37.0-47.0 L [facility] MCV 90.9 fL 81.0-99.[address] [facility] MCH 30.4 pg 27.0-31.[address] [facility] MCHC 33.5 g/dL 32.7-35.[address] [facility] RDW 15.6 % 11.5-14.0 [facility] Platelet count 153 x10E3/uL 150-450 [facility] MPV 9.8 fl 6.9-9.5 [facility] Neutrophils 85.1 % 34-64 [facility] Lymphocytes 5.9 % 25-45 [facility] Monocytes 6.6 % 1.7-10.6 [facility] Eosinophils 0.8 % 0.4-7.[address] [facility] Basophils 0.2 % 0.1-2.0 [facility] Imm. Gran. 1.4 % 0.1-2.0 [facility] Abs. Neutro. 10.39 x10E3/uL 1.2-7.6 [facility] Abs. Lymph. 0.72 x10E3/uL 1.0-3.5 [facility] Abs. [place]. 0.80 x10E3/uL 0.1-1.0 [facility] Abs. Eosin. 0.10 x10E3/uL 0.1-0.7 [facility] Abs. Baso. 0.02 x10E3/uL 0.0-0.1 [facility] Abs. Imm. Gran. 0.17 x10E3/uL 0.0-0.1 [facility] ANRBC% 0 % 0 [facility] ID Date Data Source [id number] 05/27/2020 07:23:00 AM EDT [facility] jer Name Value Range Interpretation Code Description Data Rosa rce(s) Supporting Document(s) C-REACTIVE PROT 5.35 mg/dL 0.00-0.49 [facility] ID Date Data Source [id number] 05/27/2020 07:23:00 AM EDT [facility] jer Name Value Range Interpretation Code Description Data Rosa rce(s) Supporting Document(s) MAGNESIUM 2.1 mg/dL 1.6-2.[address] [facility] ID Date Data Source [id number] 05/27/2020 07:23:00 AM EDT [facility] Name Value Range Interpretation Code Description Data Rosa rce(s) Supporting Document(s) GLU 170 mg/dL 70-[address] [facility] Patients taking Sulfasalazine may have f alsely depressedGlucose levels. Patients taking Sulfapyridine may havefalsely elevated Glucose levels. Patients should be drawnfor Glucose before the initial administration of eitherdrug. BUN 19 mg/dL 7-23 [facility] CRE 0.826 mg/dL 0.500-1.300 [facility] GFR > 60 mL/min [facility] CHLORIDE 106 mmol/L 99-110 [facility] NA 142 mmol/L 136-147 [facility] POTASSIUM 3.7 mmol/L 3.5-5.1 [facility] TCO2 28 mmol/L 20-33 [facility] ANION GAP 11.7 10.0-20.0 [facility] CA 8.5 mg/dL 8.3-10.7 [facility] ALKALINE PHOS 141 U/L 45-[address] [facility] TP 5.5 g/dL 6.0-7.8 [facility] ALB 2.4 g/dL 3.5-5.0 [facility] ESRD Dialysis patient Albumin reference range: 2.9-4.4 g/dL GL 3.1 g/dL 2.3-3.5 [facility] A/G 0.8 1.0-2.5 [facility] T. BILIRUBIN 0.5 mg/dL 0.1-1.1 [facility] [place] Total Bilirubin is n ot recommended forpatients undergoing treatment with eltrombopag (Promacta)due to the potential for falsely elevated results. ALTI 33 U/L 6-[address] [facility] Patients taking Sulfasalazine and/or Sul fapyridine may havefalsely depressed ALT levels. Patients should be drawn forALT before the initial administration of either drug. AST 29 U/L 6-[address] [facility] Patients taking Sulfasalazine and/or Sul fapyridine may havefalsely depressed AST levels. Patients should be drawn forAST before the initial administration of either drug. ID Date Data Source [id number] 05/27/2020 07:35:00 AM EDT [facility] Name Value Range Interpretation Code Description Data Rosa rce(s) Supporting Document(s) FGLU 164 mg/dL 70-[address] [facility] ID Date Data Source [id number] 05/27/2020 08:30:00 AM [facility] Interpretation Code Description Data Rosa rce(s) Supporting Document(s) FGLU 253 mg/dL 70-[address] [facility] ID Date Data Source [id number] 05/26/2020 07:38:00 PM EDT [facility] Name Value Range Interpretation Code Description Data Rosa rce(s) Supporting Document(s) FGLU 107 mg/dL 70-[address] [facility] ID Date Data Source [id number] 05/26/2020 02:50:00 PM [facility] Interpretation Code Description Data Rosa rce(s) Supporting Document(s) FGLU 210 mg/dL 70-[address] [facility] ID Date Data Source [id number] 05/26/2020 10:58:00 AM EDT [facility] [address] [id number] NOTEPATIENT NAME: ELA PONCE PHYSICIAN: MICHAEL WANG MDAUTHOR: Selma Caballero. DATE: 05/18/20 MR#: [id number] NOTE DATE: 05/26/20 RM#: [id number] TIME: 1112 : 45SubjectiveEvents Since Last EntryPatient seen and examined today. Chart reviewed. [facility] and [...] Musculoskeletal, Aldo, Endocrine,Neurology, Psych, Allergy/ImmunologyObjectiveVital SignsVital Signs-24 HRS05/25737296 1765 1800 2027 2102Temp 99.5 97.6 98.0Pulse 94 86 95 87 85Resp 15 16 17B/P 172/69 168/69 149/71 163/76 163/73B/P MeanPulse Ox 96 96 97O2 Delivery Nasal cannula Nasal cannula Nasal cannulaO2 Flow Rate 1L 3L 8TUwK72905/25033782 9182 0521 0908 0908Temp 97.9 97.7Pulse 73 79 79Resp 18 17B/P 163/78 161/77 161/77 161/77B/P MeanPulse Ox 97 94O2 Delivery Nasal cannula Nasal cannula Nasal cannulaO2 Flow Rate 2 2 7XxA16405/26388821 0953Temp 98.0Pulse 79 86Resp 20B/P 161/77 164/78B/P MeanPulse Ox 97O2 Delivery Nasal cannulaO2 Flow Rate 9JHeI1Lyyjec/OutputIntake/Output Summary 24 hours05/25 1900 05/26 0700Intake Total [...] Status mood neutral, no hallucinationsResultsLaboratory DataRecent Labs-24 hours05/25998117 8885 1755 2022ChemistryPOC Glucose (70 - 110 mg/dL) 175 H 162 H 166 HHematologyHgb (12.0 - 16.0 g/dL) 8.9 LHct (37.0 - 47.0 %) 26.3 L05/26879970 0538ChemistrySodium (136 - 147 mmol/L) 144Potassium (3.5 [...] essential hypertension Qualified Code: I10 - Essential(primary) zeaoakeeriob22. CKD (chronic kidney disease)Status ChronicA&PStable continue to [...] chronic steroid useTime spent 30 minutesDis[facility]Resuscitation status Full codePlan discussed with patientCase discussed with case management specialist, nursing staffDATE SIGNED: 05/26/20 Electronically SignedTIME SIGNED: 1112 CR FAJARDO Name Value Range Interpretation Code Description Data Rosa rce(s) Supporting Document(s) ID Date Data Source [id number] 05/26/2020 07:13:00 AM EDT [facility] jer Name Value Range Interpretation Code Description Data Rosa rce(s) Supporting Document(s) FGLU 127 mg/dL 70-[address] [facility] ID Date Data Source [id number] 05/26/2020 06:31:00 AM EDT [facility] jer Name Value Range Interpretation Code Description Data Rosa rce(s) Supporting Document(s) WBC 11.71 x10E3/uL 4.0-10.5 [facility] RBC 2.74 x10E6/uL 4.20-5.[address] [facility] Hemoglobin 8.3 g/dL 12.0-16.[address] [facility] Hematocrit 24.8 % 37.0-47.[address] [facility] MCV 90.5 fL 81.0-99.0 [facility] MCH 30.3 pg 27.0-31.[address] [facility] MCHC 33.5 g/dL 32.7-35.6 [facility] RDW 15.7 % 11.5-14.[address] [facility] Platelet count 142 x10E3/uL 150-450 L [facility] ital MPV 9.4 fl 6.9-9.[address] [facility] Neutrophils 81.0 % 34-[address] [facility] Lymphocytes 8.5 % 25-[address] [facility] Monocytes 7.8 % 1.7-10.6 [facility] Eosinophils 1.1 % 0.4-7.0 [facility] Basophils 0.2 % 0.1-2.0 [facility] Imm. Gran. 1.4 % 0.1-2.0 [facility] Abs. Neutro. 9.50 x10E3/uL 1.2-7.6 [facility] Abs. Lymph. 0.99 x10E3/uL 1.0-3.5 [facility] Abs. [place]. 0.91 x10E3/uL 0.1-1.0 [facility] Abs. Eosin. 0.13 x10E3/uL 0.1-0.7 [facility] Abs. Baso. 0.02 x10E3/uL 0.0-0.1 [facility] Imm. Gran. 0.16 x10E3/uL 0.0-0.1 H [facility] spital ANRBC% 0 % 0 [facility] ID Date Data Source [id number] 05/26/2020 06:28:00 AM EDT [facility] Name Value Range Interpretation Code Description Data Rosa rce(s) Supporting Document(s) MAGNESIUM 1.9 mg/dL 1.6-2.6 [facility] ID Date Data Source [id number] 05/26/2020 06:28:00 AM EDT [facility] jer Name Value Range Interpretation Code Description Data Rosa rce(s) Supporting Document(s) GLU 116 mg/dL 70-[address] [facility] Patients taking Sulfasalazine may have f alsely depressedGlucose levels. Patients taking Sulfapyridine may havefalsely elevated Glucose levels. Patients should be drawnfor Glucose before the initial administration of eitherdrug. BUN 17 mg/dL 7-23 [facility] CRE 0.891 mg/dL 0.500-1.300 [facility] GFR > 60 mL/min [facility] CHLORIDE 108 mmol/L 99-110 [facility] NA 144 mmol/L 136-147 [facility] POTASSIUM 3.7 mmol/L 3.5-5.1 [facility] TCO2 29 mmol/L 20-33 [facility] ANION GAP 10.7 10.0-20.0 [facility] CA 8.2 mg/dL 8.3-10.7 [facility] ALKALINE PHOS 129 U/L 45-[address] [facility] TP 5.1 g/dL 6.0-7.8 [facility] ALB 2.2 g/dL 3.5-5.0 [facility] ESRD Dialysis patient Albumin reference range: 2.9-4.4 g/dL GL 2.9 g/dL 2.3-3.5 [facility] A/G 0.8 1.0-2.5 [facility] T. BILIRUBIN 0.4 mg/dL 0.1-1.1 [facility] [place] Total Bilirubin is n ot recommended forpatients undergoing treatment with eltrombopag (Promacta)due to the potential for falsely elevated results. ALTI 28 U/L 6-54 [facility] Patients taking Sulfasalazine and/or Sul fapyridine may havefalsely depressed ALT levels. Patients should be drawn forALT before the initial administration of either drug. AST 25 U/L 6-38 [facility] Patients taking Sulfasalazine and/or Sul fapyridine may havefalsely depressed AST levels. Patients should be drawn forAST before the initial administration of either drug. ID Date Data Source [id number] 05/26/2020 06:28:00 AM EDT [facility] Name Value Range Interpretation Code Description Data Rosa rce(s) Supporting Document(s) C-REACTIVE PROT 3.59 mg/dL 0.00-0.49 [facility] ID Date Data Source [id number] 05/25/2020 10:42:00 PM EDT [facility] Name Value Range Interpretation Code Description Data Rosa rce(s) Supporting Document(s) FGLU 166 mg/dL 70-[address] [facility] ID Date Data Source [id number] 05/25/2020 06:14:00 PM EDT [facility] [address] [id number] NOTEPATIENT NAME: ELA PONCE PHYSICIAN: MICHAEL WANG, MDAUTHOR: Breezy [place], Zhang. DATE: 05/18/20 MR#: [id number] NOTE DATE: 05/25/20 RM#: [id number] TIME: 1850 [...] All otherreview of system negativeObjectiveVital SignsVital Signs-24 HRS05/24538588 6548 0202 0542 0823Temp 98.7 97.0 97.5Pulse 99 99 75 86 96Resp 18 18 18B/P 190/80 190/80 161/73 124/71 142/100B/P MeanPulse Ox 96 97 95O2 Delivery Nasal cannula Nasal cannula Nasal cannulaO2 Flow Rate 1.5 1.5 1.7GcZ73005/25878732 0446 1140 1339Temp 99.0 99.5Pulse 94 94 86Resp 16 15B/P 142/100 172/69 172/69 168/69B/P MeanPulse Ox 94 96O2 Delivery Nasal cannula Nasal cannulaO2 Flow Rate 3L 4BJeQ7Vekfix/OutputIntake/Output Summary 24 hours05/24 1900 05/25 0700Intake Total [...] Status mood neutral, no hallucinationsResultsLaboratory DataRecent Labs-24 hours05/24578585 6764 0608 1755ChemistrySodium (136 - 147 mmol/L) 143Potassium [...] 11.71 HAbsolute Lymphs (auto) (1.0 - 3.5 1.93c63H7/uL)Absolute Monos (auto) (0.1 - 1.0 x10E3/uL) 1.03 [...] vertebral body fracture-Leukocytosis trending down. C-reactive protein digther-Cqbkrd-zd blood cultures-Pain management.2. PneumoniaStatus AcuteA&PC-reactive protein improvingZosyn. [...] UTI (urinary tract infection)Status AcuteA&PTreated with Zosyn iz-Qtmikm-yd urine culture.5. HLD (hyperlipidemia)Status ChronicA&PContinue statin6. Spinal stenosisStatus ChronicA&PChronic history of spinal stenosis continue with pain management.7. DepressionStatus ChronicA&PContinue with duloxetine., BuSpar8. HypothyroidismStatus ChronicA&P-Continue with levothyroxine.9. HTN (hypertension)Status ChronicA&P-Continue with lisinopril and increase hydralazine 50 mg p.o. 3 times daily,Imdur p.o. 90md daily, added metoprolol 25 mg p.o. dailyblood pressure control-Monitor blood pressure.Hypertension type: essential hypertension Qualified Code: I10 - Essential(primary) lypdaxntkmqc77. CKD (chronic kidney disease)Status ChronicA&PHistory of CKD. SU at [facility].-Monitor renal function.11. DiabetesStatus ChronicA&PComplicated with hypoglycemia and hyperglycemiaLevemir 6 units daily, continue NovoLog via protocol, close monitoring, oyhxueysuytoa81. AnxietyStatus AcuteA&Mendoza chronic benzodiazepines. Will continue.13. PVD (peripheral vascular disease)Status ChronicA&PHistory of stent placement.Continue with Plavix, statin-Continue to monitor.14. DebilityStatus ChronicA&P-Supportive care-Consider PT/OT when patient is more alert.15. HypoalbuminemiaStatus ChronicA&PEncourage p.o. intake. Nutrition supplementation.Ensure p.o. 3 times daily.16. Polysubstance abuseStatus ChronicA&PThiamine, folic acid, multivitamin, no signs of bunlgoimtx67. HypernatremiaStatus AcuteA&RTbxsenfth50. HyperglycemiaStatus AcuteA&PSecondary to steroid, will be very cautious in increasing coverage due toepisode of hypoglycemia, taper lwurkof86. T1-T2 SUBACUTE FRACTUREStatus AcuteA&PPT, OT, fall precaution, pain medication as umruyai47. Anemia of chronic diseaseStatus AcuteA&PWorsening anemia, no signs of bleeding, transfuse 1 unit PRBC with appropriateresponse. Will monitor, further work-up as outpatientAdditional Qszlb32-lzfs-svr female patient underlying medical history of COPD O2 dependent,spinal stenosis, depression, dyslipidemia, type 2 diabetes, nicotine addiction,anxiety, hypothyroidism, debility, CKD, peripheral vascular disease,hypoalbuminemia, polysubstance abuse, initially admitted to [facility] for right upper lobe pneumonia, sepsis, deconditioning with frequentfall, transferred given complains of back pain and worsening leukocytosisDVT prophylaxis Heparin subcuDisposition pending clinical improvement, potential transfer back [facility],further work-up as outpatientResuscitation status Full codePlan discussed with patient, sonCase discussed with case management specialist, nursing staffVTE ProphylaxisVTE Prophylaxis: Heparin subcu.DATE SIGNED: 05/25/20 Electronically SignedTIME SIGNED: 1850 SAAD FRIED MD Name Value Range Interpretation Code Description Data Rosa rce(s) Supporting Document(s) ID Date Data Source [id number] 05/25/2020 06:12:00 PM EDT [facility] jer COMMENTS TO LAB: post transfusion Name Value Range Interpretation Code Description Data Rosa rce(s) Supporting Document(s) Hemoglobin 8.9 g/dL 12.0-16.[address] [facility] Hematocrit 26.3 % 37.0-47.[address] [facility] ID Date Data Source [id number] 05/26/2020 02:29:00 AM EDT [facility] jer Name Value Range Interpretation Code Description Data Rosa rce(s) Supporting Document(s) FGLU 162 mg/dL 70-[address] [facility] ID Date Data Source [id number] 05/25/2020 07:14:00 PM EDT [facility] Name Value Range Interpretation Code Description Data Orsa rce(s) Supporting Document(s) FGLU 175 mg/dL 70-[address] [facility] ID Date Data Source [id number] 05/25/2020 10:01:00 AM EDT [facility] Name Value Range Interpretation Code Description Data Rosa rce(s) Supporting Document(s) BLOOD TYPE AB NEGATIVE [facility] ID Date Data Source [id number] 05/25/2020 02:30:00 PM EDT [facility] Name Value Range Interpretation Code Description Data Rosa rce(s) Supporting Document(s) FGLU 143 mg/dL 70-[address] [facility] ID Date Data Source [id number] 05/25/2020 05:56:00 AM EDT [facility] Name Value Range Interpretation Code Description Data Rosa rce(s) Supporting Document(s) C-REACTIVE PROT 2.86 mg/dL 0.00-0.49 [facility] ID Date Data Source [id number] 05/25/2020 05:56:00 AM EDT [facility] Name Value Range Interpretation Code Description Data Rosa rce(s) Supporting Document(s) MAGNESIUM 2.0 mg/dL 1.6-2.6 [facility] ID Date Data Source [id number] 05/25/2020 05:56:00 AM EDT [facility] Name Value Range Interpretation Code Description Data Rosa rce(s) Supporting Document(s) GLU 105 mg/dL 70-110 [facility] Patients taking Sulfasalazine may have f alsely depressedGlucose levels. Patients taking Sulfapyridine may havefalsely elevated Glucose levels. Patients should be drawnfor Glucose before the initial administration of eitherdrug. BUN 19 mg/dL 7-23 [facility] CRE 0.871 mg/dL 0.500-1.300 [facility] GFR > 60 mL/min [facility] CHLORIDE 111 mmol/L 99-[address] [facility] NA 143 mmol/L 136-147 [facility] POTASSIUM 3.9 mmol/L 3.5-5.1 [facility] TCO2 29 mmol/L 20-33 [facility] ANION GAP 6.9 10.0-20.[address] [facility] CA 8.1 mg/dL 8.3-10.[address] [facility] ALKALINE PHOS 134 U/L 45-[address] [facility] TP 5.2 g/dL 6.0-7.8 [facility] ALB 2.4 g/dL 3.5-5.0 [facility] ESRD Dialysis patient Albumin reference range: 2.9-4.4 g/dL GL 2.8 g/dL 2.3-3.5 [facility] A/G 0.9 1.0-2.5 [facility] T. BILIRUBIN 0.4 mg/dL 0.1-1.1 [facility] [place] Total Bilirubin is n ot recommended forpatients undergoing treatment with eltrombopag (Promacta)due to the potential for falsely elevated results. ALTI 34 U/L 6-54 [facility] Patients taking Sulfasalazine and/or Sul fapyridine may havefalsely depressed ALT levels. Patients should be drawn forALT before the initial administration of either drug. AST 28 U/L 6-38 [facility] Patients taking Sulfasalazine and/or Sul fapyridine may havefalsely depressed AST levels. Patients should be drawn forAST before the initial administration of either drug. ID Date Data Source [id number] 05/25/2020 05:47:00 AM EDT [facility] Name Value Range Interpretation Code Description Data Rosa rce(s) Supporting Document(s) WBC 14.10 x10E3/uL 4[facility]10.5 [facility] 2.41 x10E6/uL 4.20-5.40 [facility] Hemoglobin 7.4 g/dL 12.0-16.0 [facility] Hematocrit 22.4 % 37.0-47.0 [facility] MCV 92.9 fL 81.0-99.0 [facility] MCH 30.7 pg 27.0-31.0 [facility] MCHC 33.0 g/dL 32.7-35.6 [facility] RDW 15.1 % 11.5-14.[address] [facility] Platelet count 150 x10E3/uL 150-450 [facility] ital MPV 9.7 fl 6.9-9.[address] [facility] Neutrophils 83.1 % 34-64 [facility] Lymphocytes 7.2 % 25-45 [facility] Monocytes 7.3 % 1.7-10.6 [facility] Eosinophils 0.9 % 0.4-7.0 [facility] Basophils 0.2 % 0.1-2.0 [facility] Imm. Gran. 1.3 % 0.1-2.[address] [facility] Abs. Neutro. 11.71 x10E3/uL 1.2-7.6 [facility] Abs. Lymph. 1.02 x10E3/uL 1.0-3.5 [facility] Abs. [place]. 1.03 x10E3/uL 0.1-1.0 [facility] Abs. Eosin. 0.13 x10E3/uL 0.1-0.7 [facility] Abs. Baso. 0.03 x10E3/uL 0.0-0.1 [facility] Abs. Imm. Gran. 0.18 x10E3/uL 0.0-0.1 [facility] ANRBC% 0 % [address] [facility] ID Date Data Source [id number] 05/29/2020 11:59:00 PM EDT [facility] jer : N *Clinically Significant Acut e Blood Loss N *Hgb < or = to 7.0g/dL or Hct < or = to 21% N *Hgb < 8.0g/dL or Hct < 24% and PT Hemodynamically Unstable N *Hgb < 8.0 for Anemia and an Acute [place] or Unstable Angina N *Hgb < 9.0g/dL with Chronic Transfusion Therapy Y *Maximum Blood Order Schedule NIrradiated? NCMV Negative? NTransfuse 1units over 4Have you ever had a blood transfusion? NHave you had a blood transfusion within the last 3 months? N Name Value Range Interpretation Code Description Data Rosa rce(s) Supporting Document(s) ANTIBODY ID ANTI D N [facility] ID Date Data Source [id number] 05/29/2020 12:00:00 AM EDT [facility] Name Value Range Interpretation Code Description Data Rosa rce(s) Supporting Document(s) [id number] TRANSFUSED PRODUCT: PACKED CELLS CO UNT: 1 [facility] ID Date Data Source [id number] 05/29/2020 11:59:00 PM EDT [facility] : N *Clinically Significant Acut e Blood Loss N *Hgb < or = to 7.0g/dL or Hct < or = to 21% N *Hgb < 8.0g/dL or Hct < 24% and PT Hemodynamically Unstable N *Hgb < 8.0 for Anemia and an Acute [place] or Unstable Angina N *Hgb < 9.0g/dL with Chronic Transfusion Therapy Y *Maximum Blood Order Schedule NIrradiated? NCMV Negative? NTransfuse 1units over 4Have you ever had a blood transfusion? NHave you had a blood transfusion within the last 3 months? NC: NEGATIVEE: NEGATIVE Name Value Range Interpretation Code Description Data Rosa rce(s) Supporting Document(s) ID Date Data Source [id number] 05/29/2020 11:59:00 PM EDT [facility] : N *Clinically Significant Acut e Blood Loss N *Hgb < or = to 7.0g/dL or Hct < or = to 21% N *Hgb < 8.0g/dL or Hct < 24% and PT Hemodynamically Unstable N *Hgb < 8.0 for Anemia and an Acute [place] or Unstable Angina N *Hgb < 9.0g/dL with Chronic Transfusion Therapy Y *Maximum Blood Order Schedule NIrradiated? NCMV Negative? NTransfuse 1units over 4Have you ever had a blood transfusion? NHave you had a blood transfusion within the last 3 months? NUNIT NUMBER: [id number]: YPRODUCT: LEUKO REDUCED RED BLOOD CELLSSOURCE: [facility] [place] TYPE: A NEGATIVEVOLUME: 309MLNOT AVAILABLE: YCROSSMATCH COMPONENTS:00UNIT NUMBER: [id number]: YPRODUCT: LEUKO REDUCED RED BLOOD CELLSSOURCE: [facility] [place] [facility] TYPE: A NEGATIVEVOLUME: 309MLCROSSMATCH COMPONENTS:00 Name Value Range Interpretation Code Description Data Rosa rce(s) Supporting Document(s) ID Date Data Source [id number] 05/29/2020 11:59:00 PM EDT [facility] : N *Clinically Significant Acut e Blood Loss N *Hgb < or = to 7.0g/dL or Hct < or = to 21% N *Hgb < 8.0g/dL or Hct < 24% and PT Hemodynamically Unstable N *Hgb < 8.0 for Anemia and an Acute [place] or Unstable Angina N *Hgb < 9.0g/dL with Chronic Transfusion Therapy Y *Maximum Blood Order Schedule NIrradiated? NCMV Negative? NTransfuse 1units over 4Have you ever had a blood transfusion? NHave you had a blood transfusion within the last 3 months? NUNIT NUMBER: [id number]: YPRODUCT: LEUKO REDUCED RED BLOOD CELLSSOURCE: [facility] TYPE: A NEGATIVEVOLUME: 283MLNOT AVAILABLE: YCROSSMATCH COMPONENTS: Name Value Range Interpretation Code Description Data Rosa rce(s) Supporting Document(s) ISXM 0 [facility] IGGXM 0 [facility] ID Date Data Source [id number] 05/29/2020 11:59:00 PM [facility]T [facility] *Clinically Significant Acut e Blood Loss N *Hgb < or = to 7.0g/dL or Hct < or = to 21% N *Hgb < 8.0g/dL or Hct < 24% and PT Hemodynamically Unstable N *Hgb < 8.0 for Anemia and an Acute [place] or Unstable Angina N *Hgb < 9.0g/dL with Chronic Transfusion Therapy Y *Maximum Blood Order Schedule NIrradiated? NCMV Negative? NTransfuse 1units over 4Have you ever had a blood transfusion? NHave you had a blood transfusion within the last 3 months? N Name Value Range Interpretation Code Description Data Rosa rce(s) Supporting Document(s) BLOOD TYPE AB NEGATIVE N [facility] ANTIBODY SCREEN POSITIVE [facility] ID Date Data Source [id number] 05/25/2020 08:55:00 AM EDT [facility] Name Value Range Interpretation Code Description Data Rosa rce(s) Supporting Document(s) DATIgG NEGATIVE NEGATIVE N [facility] ID Date Data Source [id number] 05/25/2020 12:50:00 AM EDT [facility] Name Value Range Interpretation Code Description Data Rosa rce(s) Supporting Document(s) FGLU 250 mg/dL 70-[address] [facility] ID Date Data Source [id number] 05/24/2020 06:24:00 PM EDT [facility] Name Value Range Interpretation Code Description Data Rosa rce(s) Supporting Document(s) FGLU 107 mg/dL 70-[address] [facility] ID Date Data Source [id number] 05/24/2020 04:01:00 PM EDT [address] [id number] NOTEPATIENT NAME: ELA PONCE BATTENKEIKO PHYSICIAN: MICHAEL WANG, MDAUTHOR: Breezy GA, Zhang. DATE: 05/18/20 MR#: [id number] NOTE DATE: 05/24/20 RM#: [id number] TIME: 1608 : 45SubjectiveCC/Hx Present IllnessBack painEvents Since Last EntryCurrently alert oriented x3. Very poor historian. On chronic oxygen. Patientcomfortable, reported chronic back pain. Following command, tolerating p.o.back to baseline. Denies chest pain. Afebrile. All other review of systemnegativeObjectiveVital SignsVital Signs-24 HRS05/23192389 8984 0200 0517Temp 98.1 98.0 97.8 98.1Pulse 100 94 94 92Resp 17 18 18 18B/P 166/76 166/76 164/76 168/79B/P MeanPulse Ox 99 99 97 97O2 Delivery Nasal cannula Nasal cannula Nasal cannula Nasal cannulaO2 Flow Rate 3L 3L 3L 1.2XxI45005/24452645 4263 0739 0844 1030Temp 98.1 98.4Pulse 87 93 103Resp 18 17B/P 168/79 169/75 169/75 162/77B/P MeanPulse Ox 99 94O2 Delivery Nasal cannula Nasal cannulaO2 Flow Rate 3L 1.5POoM853/943427Kimx 98.4Pulse 100Resp 17B/P 164/78B/P MeanPulse Ox 96O2 DeliveryO2 Flow DlxlMrI1Tf take/OutputIntake/Output Summary 24 hours13 1900 0414 0700Intake Total 1000 840Output Total 375 1400Balance [...] Status mood neutral, no hallucinationsResultsLaboratory DataRecent Labs-24 hours05/23318076 4776 0350 0607ChemistrySodium (136 - 147 mmol/L) 143Potassium [...] x10E3/uL) 0.01Nucleated RBC % (auto) (0 %) 004/099122GoqdytsxhMQF Glucose (70 - 110 mg/dL) 228 HResults Reviewed labs reviewedAssessment/PlanProblem List1. Back painStatus AcuteA&PDegenerative disc disease, spinal stenosis, T1-T2 subacute fracturePatient complained of back pain.MRI appreciated with no evidence of discitis, likely worsening pain due tosubcu vertebral body fracture-Leukocytosis trending down. C-reactive protein jjogils-Vqzykl-rb blood cultures-Pain management.2. PneumoniaStatus AcuteA&PC-reactive protein improvingZosyn. [...] pyelonephritis on CT abdomen pelvis-Continue with Zosyn gs-Rtcnwj-fm urine culture.5. HLD (hyperlipidemia)Status ChronicA&PContinue statin6. Spinal stenosisStatus ChronicA&PChronic history of spinal stenosis continue with pain management.7. DepressionStatus ChronicA&PContinue with duloxetine., BuSpar8. HypothyroidismStatus ChronicA&P-Continue with levothyroxine.9. HTN (hypertension)Status ChronicA&P-Continue with lisinopril and increase hydralazine 50 mg p.o. 3 times daily,Imdur p.o. 90md daily, added metoprolol 25 mg p.o. dailyblood pressure control-Monitor blood pressure.10. CKD (chronic kidney disease)Status ChronicA&PHistory of CKD. SU at [facility].-Monitor renal function.11. DiabetesStatus ChronicA&PComplicated with hypoglycemia and hyperglycemiaLevemir 6 units daily, continue NovoLog via protocol, close monitoring, lrokbndguixoa87. AnxietyStatus AcuteA&Mendoza chronic benzodiazepines. Will continue.13. PVD (peripheral vascular disease)Status ChronicA&PHistory of stent placement.Continue with Plavix, statin-Continue to monitor.14. DebilityStatus ChronicA&P-Supportive care-Consider PT/OT when patient is more alert.15. HypoalbuminemiaStatus ChronicA&PEncourage p.o. intake. Nutrition supplementation.Ensure p.o. 3 times daily.16. Polysubstance abuseStatus ChronicA&PThiamine, folic acid, multivitamin, no signs of elhwwpxjac98. HypernatremiaStatus AcuteA&QBntwzqyjb94. HyperglycemiaStatus AcuteA&PSecondary to steroid, will be very cautious in increasing coverage due toepisode of hypoglycemia, taper tyntbfb96. T1-T2 SUBACUTE FRACTUREStatus AcuteA&PPT, OT, fall precaution, pain medication as orderedAdditional Nbsup59-sbsa-zro female patient underlying medical history of COPD O2 dependent,spinal stenosis, depression, dyslipidemia, type 2 diabetes, nicotine addiction,anxiety, hypothyroidism, debility, CKD, peripheral vascular disease,hypoalbuminemia, polysubstance abuse, [facility], sepsis, deconditioning with frequentfall, transferred given complains of back pain and worsening leukocytosisDVT prophylaxis Heparin subcuDisposition pending clinical improvement, [facility]Resuscitation status Full codePlan discussed with patientCase discussed with case management specialist, nursing staffVTE ProphylaxisVTE Prophylaxis: Heparin subcu.DATE SIGNED: 05/24/20 Electronically SignedTIME SIGNED: 6918 SAAD FRIED MD Name Value Range Interpretation Code Description Data Rosa rce(s) Supporting Document(s) ID Date Data Source [id number] 05/24/2020 02:59:00 PM EDT [facility] Name Value Range Interpretation Code Description Data Rosa rce(s) Supporting Document(s) FGLU 228 mg/dL 70-[address] [facility] ID Date Data Source [id number] 05/24/2020 07:48:00 AM EDT [facility] jer Name Value Range Interpretation Code Description Data Rosa rce(s) Supporting Document(s) FGLU 93 mg/dL 70-110 [facility] ID Date Data Source [id number] 05/24/2020 05:49:00 AM EDT [facility] ejr Name Value Range Interpretation Code Description Data Rosa rce(s) Supporting Document(s) GLU 69 mg/dL 70-110 [facility] Patients taking Sulfasalazine may have f alsely depressedGlucose levels. Patients taking Sulfapyridine may havefalsely elevated Glucose levels. Patients should be drawnfor Glucose before the initial administration of eitherdrug. BUN 24 mg/dL 7-[address] [facility] CRE 0.995 mg/dL 0.500-1.300 [facility] GFR 58 mL/min [facility] CHLORIDE 112 mmol/L 99-[address] [facility] NA 143 mmol/L 136-147 [facility] POTASSIUM 3.9 mmol/L 3.5-5.1 [facility] TCO2 27 mmol/L 20-33 [facility] ANION GAP 7.9 10.0-20.0 [facility] CA 8.2 mg/dL 8.3-10.7 [facility] ALKALINE PHOS 139 U/L 45-[address] [facility] TP 5.7 g/dL 6.0-7.8 [facility] ALB 2.6 g/dL 3.5-5.0 [facility] ESRD Dialysis patient Albumin reference range: 2.9-4.4 g/dL GL 3.1 g/dL 2.3-3.5 [facility] A/G 0.8 1.0-2.5 [facility] T. BILIRUBIN 0.4 mg/dL 0.1-1.1 [facility] [employer] [place] Total Bilirubin is n ot recommended forpatients undergoing treatment with eltrombopag (Promacta)due to the potential for falsely elevated results. ALTI 36 U/L 6-54 [facility] Patients taking Sulfasalazine and/or Sul fapyridine may havefalsely depressed ALT levels. Patients should be drawn forALT before the initial administration of either drug. AST 32 U/L 6-[address] [facility] Patients taking Sulfasalazine and/or Sul fapyridine may havefalsely depressed AST levels. Patients should be drawn forAST before the initial administration of either drug. ID Date Data Source [id number] 05/24/2020 05:49:00 AM EDT [facility] Name Value Range Interpretation Code Description Data Rosa rce(s) Supporting Document(s) C-REACTIVE PROT 0.90 mg/dL 0.00-0.49 [facility] ID Date Data Source [id number] 05/24/2020 05:49:00 AM EDT [facility] Name Value Range Interpretation Code Description Data Rosa rce(s) Supporting Document(s) MAGNESIUM 2.0 mg/dL 1.6-2.6 [facility] ID Date Data Source [id number] 05/24/2020 05:16:00 AM EDT [facility] Name Value Range Interpretation Code Description Data Rosa rce(s) Supporting Document(s) WBC 17.89 x10E3/uL 4.0-10.5 [facility] RBC 2.71 x10E6/uL 4.20-5.[address] [facility] Hemoglobin 8.1 g/dL 12.0-16.0 [facility] Hematocrit 25.1 % 37.0-47.0 [facility] MCV 92.6 fL 81.0-99.0 [facility] MCH 29.9 pg 27.0-31.0 [facility] MCHC 32.3 g/dL 32.7-35.6 [facility] RDW 15.1 % 11.5-14.[address] [facility] Platelet count 164 x10E3/uL 150-450 N [facility] ital MPV 9.9 fl 6.9-9.[address] [facility] Neutrophils 83.5 % 34-[address] [facility] Lymphocytes 7.4 % 25-[address] [facility] Monocytes 6.4 % 1.7-10.6 [facility] Eosinophils 1.0 % 0.4-7.0 [facility] Basophils 0.1 % 0.1-2.0 [facility] Imm. Gran. 1.6 % 0.1-2.[address] [facility] Abs. Neutro. 14.96 x10E3/uL 1.2-7.6 [facility] Abs. Lymph. 1.32 x10E3/uL 1.0-3.5 [facility] Abs. [place]. 1.15 x10E3/uL 0.1-1.0 [facility] Abs. Eosin. 0.17 x10E3/uL 0.1-0.7 [facility] Abs. Baso. 0.01 x10E3/uL 0.0-0.1 [facility] Abs. Imm. Gran. 0.28 x10E3/uL 0.0-0.1 [facility] ANRBC% 0 % 0 [facility] ID Date Data Source [id number] 05/24/2020 01:38:00 AM EDT [facility] Name Value Range Interpretation Code Description Data Rosa rce(s) Supporting Document(s) FGLU 68 mg/dL 70-[address] [facility] ID Date Data Source [id number] 05/23/2020 08:05:00 PM EDT [address] [id number] NOTEPATIENT NAME: ELA PONCE PHYSICIAN: MICHAEL WANG MDAUTHOR: Breezy [place], Zhang. DATE: 05/18/20 MR#: [id number] NOTE DATE: 05/23/20 RM#: [id number] TIME: 2021 : 45SubjectiveCC/Hx Present IllnessBack painEvents Since Last EntryCurrently alert oriented x3. Very poor historian. On chronic oxygen. Patientcomfortable, reported chronic back pain. Following command, tolerating p.o.almost back to baseline. Denies chest pain. Afebrile. All other review ofsystem negativeObjectiveVital SignsVital Signs-24 HRS04/12 05/22200 2200 0250 0524 0751Temp 98.9 98.0 98.1Pulse 95 84 89Resp 18 17 16B/P 160/90 183/80 210/90 178/64B/P MeanPulse Ox 97 96 97O2 Delivery Nasal cannula Nasal cannulaO2 Flow Rate 2 4VcY316/13 05/23015950 3372 0942 1000 1341Temp 98.1 98.3Pulse 89 100 96Resp 17 17B/P 178/64 178/64 182/83 168/77B/P MeanPulse Ox 98 95O2 Delivery Nasal cannula Nasal cannula Nasal cannulaO2 Flow Rate 3L 2L 0BOxT148/220950Gbcx 98.1Pulse 100Resp 17B/P 166/76B/P MeanPulse Ox 99O2 Delivery Nasal cannulaO2 Flow Rate 1PTqK6Cqxuat/OutputIntake/Output Summary 24 hours12 1900 05/23 0700Intake Total [...] skin tearPsych/Mental Status mood neutralResultsLaboratory DataRecent Labs-24 hours05/23395247 0622ChemistrySodium (136 - 147 mmol/L) 141Potassium (3.5 [...] subcuvertebral body fracture-Leukocytosis trending down. C-reactive protein wcgkwii-Aqeoya-un blood cultures-Pain management.2. PneumoniaStatus AcuteA&PC-reactive protein improvingZosyn. [...] pyelonephritis on CT abdomen pelvis-Continue with Zosyn ts-Zikrxg-wk urine culture.5. HLD (hyperlipidemia)Status ChronicA&PContinue statin6. Spinal stenosisStatus ChronicA&PChronic history of spinal stenosis continue with pain management.7. DepressionStatus ChronicA&PContinue with duloxetine., BuSpar8. HypothyroidismStatus ChronicA&PCheck TSH.-Continue with levothyroxine.9. HTN (hypertension)Status ChronicA&P-Continue with lisinopril and increase hydralazine 50 mg p.o. 3 times daily,Imdur p.o. 90md dailyblood pressure control-Monitor blood pressure.10. CKD (chronic kidney disease)Status ChronicA&PHistory of CKD. SU at [facility].-Monitor renal function.11. DiabetesStatus ChronicA&PComplicated with hypoglycemia and hyperglycemiaLevemir 8 units daily, continue NovoLog via protocol, close monitoring, rcpmgzteulaqa60. AnxietyStatus AcuteA&Mendoza chronic benzodiazepines. Will continue.13. PVD (peripheral vascular disease)Status ChronicA&PHistory of stent placement.Continue with Plavix, statin-Continue to monitor.14. DebilityStatus ChronicA&P-Supportive care-Consider PT/OT when patient is more alert.15. HypoalbuminemiaStatus ChronicA&PEncourage p.o. intake. Nutrition supplementation.Ensure p.o. 3 times daily.16. Polysubstance abuseStatus ChronicA&PThiamine, folic acid, multivitamin, Ativan as needed for rjoybhlsnw29. HypernatremiaStatus AcuteA&QBxjupckqp25. HyperglycemiaStatus AcuteA&PSecondary to steroid, will be very cautious in increasing coverage due toepisode of hypoglycemia, taper . T1-T2 SUBACUTE FRACTUREStatus AcuteA&PPT, OT, fall precaution, pain medication as orderedAdditional Qvclf43-lqux-hdk female patient underlying medical history of COPD O2 dependent,spinal stenosis, depression, dyslipidemia, type 2 diabetes, nicotine addiction,anxiety, hypothyroidism, debility, CKD, peripheral vascular disease,hypoalbuminemia, polysubstance abuse, [facility], [facility], deconditioning with frequentfall, transferred given complains of back pain and worsening leukocytosisDVT prophylaxis Heparin subcuDisposition pending clinical improvement, [facility]Resuscitation status Full codePlan discussed with patient, sonCase discussed with case management specialist, nursing staffVTE ProphylaxisVTE Prophylaxis: heparin SQDATE SIGNED: 04/13/21 Electronically SignedTIME SIGNED: 2021 SAAD FRIED MD Name Value Range Interpretation Code Description Data Rosa rce(s) Supporting Document(s) ID Date Data Source [id number] 05/23/2020 11:37:00 PM EDT [facility] Name Value Range Interpretation Code Description Data Rosa rce(s) Supporting Document(s) FGLU 190 mg/dL 70-[address] [facility] ID Date Data Source [id number] 05/24/2020 02:34:00 AM EDT [facility] Name Value Range Interpretation Code Description Data Rosa rce(s) Supporting Document(s) FGLU 304 mg/dL 70-[address] [facility] ID Date Data Source [id number] 05/23/2020 08:21:00 [facility] Interpretation Code Description Data Rosa rce(s) Supporting Document(s) FGLU 271 mg/dL 70-[address] [facility] ID Date Data Source [id number] 05/23/2020 05:59:00 AM EDT [facility] Name Value Range Interpretation Code Description Data Rosa rce(s) Supporting Document(s) C-REACTIVE PROT 1.72 mg/dL 0.00-0.49 [facility] ID Date Data Source [id number] 05/23/2020 05:59:00 AM EDT [facility] Name Value Range Interpretation Code Description Data Rosa rce(s) Supporting Document(s) MAGNESIUM 2.0 mg/dL 1.6-2.[address] [facility] ID Date Data Source [id number] 05/23/2020 05:59:00 AM EDT [facility] Name Value Range Interpretation Code Description Data Rosa rce(s) Supporting Document(s) GLU 225 mg/dL 70-[address] [facility] Patients taking Sulfasalazine may have f alsely depressedGlucose levels. Patients taking Sulfapyridine may havefalsely elevated Glucose levels. Patients should be drawnfor Glucose before the initial administration of eitherdrug. BUN 28 mg/dL 7-[address] [facility] CRE 1.040 mg/dL 0.500-1.[address] [facility] GFR 55 mL/min [facility] CHLORIDE 111 mmol/L 99-[address] [facility] NA 141 mmol/L 136-147 [facility] POTASSIUM 4.3 mmol/L 3.5-5.1 [facility] TCO2 28 mmol/L 20-33 [facility] ANION GAP 6.3 10.0-20.0 [facility] CA 8.2 mg/dL 8.3-10.7 [facility] ALKALINE PHOS 140 U/L 45-[address] [facility] TP 5.4 g/dL 6.0-7.8 [facility] ALB 2.5 g/dL 3.5-5.0 [facility] ESRD Dialysis patient Albumin reference range: 2.9-4.4 g/dL GL 2.9 g/dL 2.3-3.5 [facility] A/G 0.9 1.0-2.5 [facility] T. BILIRUBIN 0.5 mg/dL 0.1-1.1 [facility] [place] Total Bilirubin is n ot recommended forpatients undergoing treatment with eltrombopag (Promacta)due to the potential for falsely elevated results. ALTI 36 U/L 6-54 [facility] Patients taking Sulfasalazine and/or Sul fapyridine may havefalsely depressed ALT levels. Patients should be drawn forALT before the initial administration of either drug. AST 25 U/L 6-38 [facility] Patients taking Sulfasalazine and/or Sul fapyridine may havefalsely depressed AST levels. Patients should be drawn forAST before the initial administration of either drug. ID Date Data Source [id number] 05/23/2020 05:14:00 AM EDT [facility] Name Value Range Interpretation Code Description Data Rosa rce(s) Supporting Document(s) WBC 12.48 x10E3/uL 4.0-10.5 [facility] 2.65 x10E6/uL 4.20-5.40 [facility] Hemoglobin 8.0 g/dL 12.0-16.0 [facility] Hematocrit 24.7 % 37.0-47.0 [facility] MCV 93.2 fL 81.0-99.0 [facility] MCH 30.2 pg 27.0-31.[address] [facility] MCHC 32.4 g/dL 32.7-35.6 L [facility] RDW 14.8 % 11.5-14.0 [facility] Platelet count 146 x10E3/uL 150-450 [facility] ital MPV 10.1 fl 6.9-9.5 H [facility] Neutrophils 88.5 % 34-64 H [facility] Lymphocytes 4.8 % 25-45 L [facility] Monocytes 4.6 % 1.7-10.6 N [facility] Eosinophils 0.2 % 0.4-7.0 L [facility] Basophils 0.1 % 0.1-2.0 N [facility] Imm. Gran. 1.8 % 0.1-2.0 N [facility] Abs. Neutro. 11.04 x10E3/uL 1.2-7.6 [facility] Abs. Lymph. 0.60 x10E3/uL 1.0-3.5 [facility] Abs. [place]. 0.58 x10E3/uL 0.1-1.0 [facility] Abs. Eosin. 0.02 x10E3/uL 0.1-0.7 [facility] Abs. Baso. 0.01 x10E3/uL 0.0-0.1 [facility] Abs. Imm. Gran. 0.23 x10E3/uL 0.0-0.1 [facility] ANRBC% 0 % 0 [facility] ID Date Data Source [id number] 05/22/2020 04:34:00 PM EDT [facility] Name Value Range Interpretation Code Description Data Rosa rce(s) Supporting Document(s) FGLU 348 mg/dL 70-110 [facility] ID Date Data Source [id number] 05/22/2020 02:57:00 PM EDT [facility] [address] [id number] NOTEPATIENT NAME: JOHNTURE,ELA BATTENDING PHYSICIAN: MICHAEL WANG MDAUTHOR: Breezy [place], Zhang. DATE: 05/18/20 MR#: [id number] NOTE DATE: 05/22/20 RM#: [id number] TIME: 1531 : 45SubjectiveCC/Hx Present IllnessBack painEvents Since Last EntryCurrently alert oriented x3. Very poor historian. On chronic oxygen. Patientcomfortable, reported chronic back pain. Following command, tolerating p.o.almost back to baseline. Denies chest pain. Afebrile. All other review ofsystem negativeObjectiveVital SignsVital Signs-24 HRS05/21262863 0980 2200 0128Temp 99.3 99.0 98.7Pulse 95 95 91Resp 16 16 16B/P 190/88 144/77 147/63B/P MeanPulse Ox 100 98 95O2 Delivery Nasal cannula Nasal cannula Nasal cannula Nasal cannulaO2 Flow Rate 3L 2 2L 6FxW249/05/22944316 5713 0835 1000 1426Temp 98.6 97.3Pulse 95 98Resp 16 17B/P 165/75 163/83 163/83 164/80B/P MeanPulse Ox 96 95O2 Delivery Nasal cannula Nasal cannula Nasal cannulaO2 Flow Rate 2 2L [id number]/OutputIntake/Output Summary 24 hours05/21 1900 05/22 0700Intake Total [...] tearPsych/Mental Status mood n eutralResultsLaboratory DataRecent Labs-24 hours05/21407190 8147 0615ChemistrySodium (136 - 147 mmol/L) 145Potassium (3.5 [...] subcuvertebral body fracture-Leukocytosis trending down. C-reactive protein qsjedpq-Rjdqeb-da blood cultures-Pain management.2. PneumoniaStatus AcuteA&PC-reactive protein improvingZosyn. [...] pyelonephritis on CT abdomen pelvis-Continue with Zosyn tt-Dmsrps-td urine culture.5. HLD (hyperlipidemia)Status ChronicA&PContinue statin6. Spinal stenosisStatus ChronicA&PChronic history of spinal stenosis continue with pain management.7. DepressionStatus ChronicA&PContinue with duloxetine., BuSpar8. HypothyroidismStatus ChronicA&PCheck TSH.-Continue with levothyroxine.9. HTN (hypertension)Status ChronicA&P-Continue with lisinopril and increase hydralazine 50 mg p.o. 3 times daily,restarting NorvascImdur 30 mg p.o. daily added for better blood pressure control-Monitor blood pressure.10. CKD (chronic kidney disease)Status ChronicA&PHistory of CKD. SU at [facility].-Monitor renal function.11. DiabetesStatus ChronicA&PComplicated with hypoglycemia and hyperglycemiaLevemir 8 units daily, continue NovoLog via protocol, close monitoring, hhhsycwagkmjw28. AnxietyStatus AcuteA&Mendoza chronic benzodiazepines. Will continue.13. PVD (peripheral vascular disease)Status ChronicA&PHistory of stent placement.Continue with Plavix, statin-Continue to monitor.14. DebilityStatus ChronicA&P-Supportive care-Consider PT/OT when patient is more alert.15. HypoalbuminemiaStatus ChronicA&PEncourage p.o. intake. Nutrition supplementation.Ensure p.o. 3 times daily.16. Polysubstance abuseStatus ChronicA&PThiamine, folic acid, multivitamin, Ativan as needed for hqwfbzojtz90. HypernatremiaStatus AcuteA&MKxbcxutcl20. HyperglycemiaStatus AcuteA&PSecondary to steroid, will be very cautious in increasing coverage due toepisode of hypoglycemia, taper steroidAdditional Kdhbb84-emni-xsh female patient underlying medical history of COPD O2 dependent,spinal stenosis, depression, dyslipidemia, type 2 diabetes, nicotine addiction,anxiety, hypothyro idism, debility, CKD, peripheral vascular disease,hypoalbuminemia, polysubstance abuse, initially admitted to [facility] for right upper lobe pneumonia, sepsis, deconditioning with frequentfall, transferred given complains of back pain and worsening leukocytosisDVT prophylaxis Heparin subcuDisposition pending clinical improvement, [facility]Res[facility] status Full codePlan discussed with patientCase discussed with case management specialist, nursing staffVTE ProphylaxisVTE Prophylaxis: Heparin subcu.DATE SIGNED: 05/22/20 Electronically SignedTIME SIGNED: 153 SAAD FRIED MD Name Value Range Interpretation Code Description Data Rosa rce(s) Supporting Document(s) ID Date Data Source [id number] 05/22/2020 04:14:00 PM EDT [facility] Name Value Range Interpretation Code Description Data Rosa rce(s) Supporting Document(s) VANCOMYCIN TROU 22.1 ug/mL 5-10 [facility] FOR SKIN AND SKIN STRUCTURE INFECTIONS, GUIDELINES RECOMMENDA TROUGH OF 10. FOR SEVERE INFECTIONS, (PNEUMONIA, OSTEOMYELITIS, MENINGITISAND BACTEREMIA) A TARGET TROUGH OF 15 TO 20 IS RECOMMENDED. ID Date Data Source [id number] 05/22/2020 02:26:00 PM EDT [facility] Exam Number: [id number] OF EXAMINATIO N: 05/22/2020 9:00 EDTMRI L-SPINE W/O FOL BY W/ CONTHISTORY: TendernessMulti-echo, multiplanar imaging of the lumbar spine was obtainedwithout and with contrast .FINDINGS:Decreased signal intensity on T2-weighted images is present in thelumbar intervertebral discs. The L3-4 through L5-S1 intervertebraldiscs are decreased in height. These findings are consistent with discdegeneration.I there is no disc bulge or herniation at the L1-2 level. The H5urgwhr exit the neural foramina without compression.A diffuse [...] Reported By: Kemal SIMON M.D. Signed By: J. WASENKO, M.D. Name Value Range Interpretation Code Description Data [facility](s) Supporting Document(s) ID Date Data Source [id number] 05/22/2020 12:41:00 PM EDT [facility] Progress Note GeneralEncounter:Chart re viewed. Patient [...] normal capillary refill, no calf tendernessNeurologic/Psychiatric alert, general agent II- XII nml as tested, normal mood/affect, [...] MG BID PO Vital Signs 05/14 05/14 04 04 04 1818 2300 0300 0645 1030 Temp 98.9 98.4 98.5 98.2 97.0 Pulse 97 96 94 90 101 Resp 20 24 20 16 16 B/P 123/71 130/72 136/67 182/82 152/87 B/P Mean Pulse Ox 99 98 100 94 99 O2 Delivery O2 Flow Rate FiO2 04 1445 Temp 99.4 Pulse 97 Resp 22 [...] rce(s) Supporting Document(s) ID Date Data Source [id number] 05/22/2020 11:35:00 AM EDT [facility] Exam Number: [id number] OF EXAMINATIO N: 05/22/2020 9:00 EDTMRI T-SPINE [...] rce(s) Supporting Document(s) ID Date Data Source [id number] 05/23/2020 12:09:00 AM EDT [facility] Name Value Range Interpretation Code Description Data Rosa rce(s) Supporting Document(s) FGLU 325 mg/dL 70-[address] [facility] ID Date Data Source [id number] 05/22/2020 07:22:00 [facility] Name Value Range Interpretation Code Description Data Rosa rce(s) Supporting Document(s) C-REACTIVE PROT 0.96 mg/dL 0.00-0.49 [facility] ID Date Data Source [id number] 05/22/2020 07:22:00 AM EDT [facility] Name Value Range Interpretation Code Description Data Rosa rce(s) Supporting Document(s) MAGNESIUM 2.0 mg/dL 1.6-2.[address] [facility] ID Date Data Source [id number] 05/22/2020 07:22:00 AM EDT [facility] Name Value Range Interpretation Code Description Data Rosa rce(s) Supporting Document(s) GLU 217 mg/dL 70-[address] [facility] Patients taking Sulfasalazine may have f alsely depressedGlucose levels. Patients taking Sulfapyridine may havefalsely elevated Glucose levels. Patients should be drawnfor Glucose before the initial administration of eitherdrug. BUN 23 mg/dL 7-23 [facility] CRE 0.901 mg/dL 0.500-1.300 [facility] GFR > 60 mL/min [facility] CHLORIDE 114 mmol/L 99-[address] [facility] NA 145 mmol/L 136-147 [facility] POTASSIUM 3.9 mmol/L 3.5-5.1 [facility] TCO2 27 mmol/L 20-33 [facility] ANION GAP 7.9 10.0-20.[address] [facility] CA 8.0 mg/dL 8.3-10.[address] [facility] ALKALINE PHOS 144 U/L 45-[address] [facility] TP 5.4 g/dL 6.0-7.8 [facility] ALB 2.5 g/dL 3.5-5.0 [facility] ESRD Dialysis patient Albumin reference range: 2.9-4.4 g/dL GL 2.9 g/dL 2.3-3.5 [facility] A/G 0.9 1.0-2.5 [facility] T. BILIRUBIN 0.5 mg/dL 0.1-1.1 [facility] [place] Total Bilirubin is n ot recommended forpatients undergoing treatment with eltrombopag (Promacta)due to the potential for falsely elevated results. ALTI 38 U/L 6-54 [facility] Patients taking Sulfasalazine and/or Sul fapyridine may havefalsely depressed ALT levels. Patients should be drawn forALT before the initial administration of either drug. AST 27 U/L 6-38 [facility] Patients taking Sulfasalazine and/or Sul fapyridine may havefalsely depressed AST levels. Patients should be drawn forAST before the initial administration of either drug. ID Date Data Source [id number] 05/22/2020 07:04:00 AM EDT [facility] Name Value Range Interpretation Code Description Data Rosa rce(s) Supporting Document(s) WBC 13.34 x10E3/uL 4.0-10.5 [facility] RBC 2.90 x10E6/uL 4.20-5.40 [facility] Hemoglobin 8.8 g/dL 12.0-16.0 [facility] Hematocrit 27.2 % 37.0-47.0 [facility] MCV 93.8 fL 81.0-99.0 [facility] MCH 30.3 pg 27.0-31.0 [facility] MCHC 32.4 g/dL 32.7-35.6 [facility] RDW 15.3 % 11.5-14.[address] [facility] Platelet count 141 x10E3/uL 150-450 [facility] ital MPV 10.1 fl 6.9-9.5 [facility] Neutrophils 84.2 % 34-64 H [facility] Lymphocytes 7.2 % 25-45 L [facility] Monocytes 6.2 % 1.7-10.6 [facility] Eosinophils 1.3 % 0.4-7.0 N [facility] Basophils 0.1 % 0.1-2.0 [facility] Imm. Gran. 1.0 % 0.1-2.0 [facility] Abs. Neutro. 11.22 x10E3/uL 1.2-7.6 [facility] Abs. Lymph. 0.96 x10E3/uL 1.0-3.5 [facility] Abs. [place]. 0.83 x10E3/uL 0.1-1.0 [facility] Abs. Eosin. 0.18 x10E3/uL 0.1-0.7 [facility] Abs. Baso. 0.01 x10E3/uL 0.0-0.1 [facility] Abs. Imm. Gran. 0.14 x10E3/uL 0.0-0.1 [facility] ANRBC% 0 % 0 [facility] ID Date Data Source [id number] 05/23/2020 09:11:00 AM EDT [facility] Name Value Range Interpretation Code Description Data Rosa rce(s) Supporting Document(s) FGLU 224 mg/dL 70-[address] [facility] ID Date Data Source [id number] 05/23/2020 12:07:00 AM EDT [facility] Name Value Range Interpretation Code Description Data Rosa rce(s) Supporting Document(s) FGLU 201 mg/dL 70-110 [facility] ID Date Data Source [id number] 05/21/2020 06:03:00 PM EDT [facility] [address] [id number] NOTEPATIENT NAME: ELA PONCETENKEIKO PHYSICIAN: MICHAEL WANG MDAUTHOR: Breezy [place], Zhang. DATE: 05/18/20 MR#: [id number] NOTE DATE: 05/21/20 RM#: [id number] TIME: 1814 : 45SubjectiveCC/Hx Present IllnessBack painEvents Since Last EntryCurrently alert oriented x2. Very poor historian. On chronic oxygen. Patientcomfortable, reported chronic back pain. Following command, tolerating p.o.Seems more responsive today. Denies chest pain. Afebrile. All other reviewof system negativeObjectiveVital SignsVital Signs-24 HRS05/[id number] 3912 0142 0455 0802Temp 98.7 97.1 97.2Pulse 101 86 102Resp 18 17 22B/P 166/71 140/88 140/88B/P MeanPulse Ox 89 90 95O2 Delivery Nasal cannula Nasal cannula Nasal cannulaO2 Flow Rate 3L 2L 4BcE19405/21747889 7167 1350 1710Temp 97.6 98.2 99.3Pulse 97 100 95Resp 18 16 16B/P 140/86 152/86 158/78 190/88B/P MeanPulse Ox 98 98 100O2 Delivery Nasal cannula Nasal cannula Nasal cannulaO2 Flow Rate 2 3L 2TCrO5Urxfka/OutputIntake/Output Summary 24 hours05/200 05/21 0700Intake Total 1150 700Output Total 700 [...] skin tearPsych/Mental Status mood neutralResultsLaboratory DataRecent Labs-24 hours05/20 0415 0700 0952ChemistrySodium (136 - 147 mmol/L) [...] stenosis, possible concern for discitis. Patient transferred [facility] for MRI thoracic and lumbar spine.-We will obtain MRI of the thoracic and lumbar spine.-Patient on vancomycin IV and Zosyn IV-Leukocytosis trending down. C-reactive protein gszokil-Skfsgf-ob blood cultures-Pain management.unable to obtain MRI due [...] pyelonephritis on CT abdomen pelvis-Continue with Zosyn zg-Lmijxw-ve urine culture.5. HLD (hyperlipidemia)Status ChronicA&PContinue statin6. Spinal stenosisStatus ChronicA&PChronic history of spinal stenosis continue with pain management.7. DepressionStatus ChronicA&PContinue with duloxetine., BuSpar8. HypothyroidismStatus ChronicA&PCheck TSH.-Continue with levothyroxine.9. HTN (hypertension)Status ChronicA&P-Continue with lisinopril and increase hydralazine 50 mg p.o. 3 times daily,restarting Norvasc-Monitor blood pressure.10. CKD (chronic kidney disease)Status ChronicA&PHistory of CKD. SU at [facility].-Monitor renal function.11. DiabetesStatus ChronicA&PComplicated with hypoglycemia and hyperglycemiaLevemir 6 units daily, continue NovoLog via protocol, close monitoring, yizclsvswqqcp35. AnxietyStatus AcuteA&Mendoza chronic benzodiazepines. Will continue.13. PVD (peripheral vascular disease)Status ChronicA&PHistory of stent placement.Continue with Plavix, statin-Continue to monitor.14. DebilityStatus ChronicA&P-Supportive care- Consider PT/OT when patient is more alert.15. HypoalbuminemiaStatus ChronicA&PEncourage p.o. intake. Nutrition supplementation.Ensure p.o. 3 times daily.16. Polysubstance abuseStatus ChronicA&PThiamine, folic acid, multivitamin, Ativan as needed for qfzkogwgpe25. HypernatremiaStatus AcuteA&PLikely secondary to IV fluids, encourage oral hydration. Cviykqdsm49. HyperglycemiaStatus AcuteA&PSecondary to steroid, will be very cautious in increasing coverage due toepisode of hypoglycemia, taper steroidAdditional Qnqyk12-ggzs-kig female patient underlying medical history of COPD O2 dependent,spinal stenosis, depression, dyslipidemia, type 2 diabetes, nicotine addiction,anxiety, hypothyroidism, debility, CKD, peripheral vascular disease,hypoalbuminemia, polysubstance abuse, initially admitted to [facility] for right upper lobe pneumonia, sepsis, [...] rce(s) Supporting Document(s) ID Date Data Source [id number] 05/21/2020 06:55:00 PM EDT [facility] Name Value Range Interpretation Code Description Data Rosa rce(s) Supporting Document(s) FGLU 287 mg/dL 70-[address] [facility] ID Date Data Source [id number] 05/22/2020 02:28:00 AM EDT [facility] jer Name Value Range Interpretation Code Description Data Rosa rce(s) Supporting Document(s) FGLU 210 mg/dL 70-[address] [facility] ID Date Data Source [id number] 05/21/2020 06:53:00 PM EDT [facility] jer Name Value Range Interpretation Code Description Data Rosa rce(s) Supporting Document(s) FGLU 343 mg/dL 70-[address] [facility] ID Date Data Source [id number] 05/21/2020 10:26:00 AM EDT [facility] COMMENTS TO LAB: CRITICAL HIGH Name Value Range Interpretation Code Description Data Rosa rce(s) Supporting Document(s) GLU 453 mg/dL 70-[address] [facility] Patients taking Sulfasalazine may have f alsely depressedGlucose levels. Patients taking Sulfapyridine may havefalsely elevated Glucose levels. Patients should be drawnfor Glucose before the initial administration of eitherdrug. ID Date Data Source [id number] 05/21/2020 07:55:00 AM EDT [facility] COMMENTS TO LAB: CRHI BS Name Value Range Interpretation Code Description Data Rosa rce(s) Supporting Document(s) GLU 433 mg/dL 70-110 [facility] Patients taking Sulfasalazine may have f alsely depressedGlucose levels. Patients taking Sulfapyridine may havefalsely elevated Glucose levels. Patients should be drawnfor Glucose before the initial administration of eitherdrug. ID Date Data Source [id number] 05/21/2020 05:21:00 AM EDT [facility] Name Value Range Interpretation Code Description Data Rosa rce(s) Supporting Document(s) VANCOMYCIN RAND 21.2 ug/mL 5-10 [facility] ID Date Data Source [id number] 05/21/2020 05:09:00 AM EDT [facility] jer Name Value Range Interpretation Code Description Data Rosa rce(s) Supporting Document(s) C-REACTIVE PROT 2.01 mg/dL 0.00-0.49 [facility] ID Date Data Source [id number] 05/21/2020 05:09:00 AM EDT [facility] jer Name Value Range Interpretation Code Description Data Rosa rce(s) Supporting Document(s) MAGNESIUM 2.2 mg/dL 1.6-2.[address] [facility] ID Date Data Source [id number] 05/21/2020 05:09:00 AM [facility]T [facility] Name Value Range Interpretation Code Description Data Rosa rce(s) Supporting Document(s) GLU 345 mg/dL 70-[address] [facility] Patients taking Sulfasalazine may have f alsely depressedGlucose levels. Patients taking Sulfapyridine may havefalsely elevated Glucose levels. Patients should be drawnfor Glucose before the initial administration of eitherdrug. BUN 24 mg/dL 7-[address] [facility] CRE 1.010 mg/dL 0.500-1.300 [facility] GFR 57 mL/min [facility] CHLORIDE 113 mmol/L 99-[address] [facility] NA 146 mmol/L 136-147 [facility] POTASSIUM 3.4 mmol/L 3.5-5.[address] [facility] TCO2 27 mmol/L 20-33 [facility] ANION GAP 9.4 10.0-20.[address] [facility] CA 8.3 mg/dL 8.3-10.7 [facility] ALKALINE PHOS 148 U/L 45-[address] [facility] TP 5.5 g/dL 6.0-7.8 [facility] ALB 2.7 g/dL 3.5-5.0 [facility] ESRD Dialysis patient Albumin reference range: 2.9-4.4 g/dL GL 2.8 g/dL 2.3-3.5 [facility] A/G 1.0 1.0-2.5 [facility] T. BILIRUBIN 0.6 mg/dL 0.1-1.1 [facility] [place] Total Bilirubin is n ot recommended forpatients undergoing treatment with eltrombopag (Promacta)due to the potential for falsely elevated results. ALTI 46 U/L 6-54 [facility] Patients taking Sulfasalazine and/or Sul fapyridine may havefalsely depressed ALT levels. Patients should be drawn forALT before the initial administration of either drug. AST 32 U/L 6-38 [facility] Patients taking Sulfasalazine and/or Sul fapyridine may havefalsely depressed AST levels. Patients should be drawn forAST before the initial administration of either drug. ID Date Data Source [id number] 05/21/2020 04:46:00 AM EDT [facility] Name Value Range Interpretation Code Description Data Rosa rce(s) Supporting Document(s) WBC 13.24 x10E3/uL 4.0-10.5 [facility] RBC 2.89 x10E6/uL 4.20-5.40 [facility] Hemoglobin 8.8 g/dL 12.0-16.0 [facility] Hematocrit 26.9 % 37.0-47.0 [facility] MCV 93.1 fL 81.0-99.0 [facility] MCH 30.4 pg 27.0-31.0 [facility] MCHC 32.7 g/dL 32.7-35.6 [facility] RDW 15.1 % 11.5-14.0 [facility] Platelet count 153 x10E3/uL 150-450 [facility] ital MPV 9.7 fl 6.9-9.5 [facility] Neutrophils 94.0 % 34-64 [facility] Lymphocytes 2.4 % 25-45 L [facility] Monocytes 2.0 % 1.7-10.6 [facility] Eosinophils 0 % 0.4-7.0 L [facility] Basophils 0.1 % 0.1-2.0 [facility] Imm. Gran. 1.5 % 0.1-2.0 [facility] Abs. Neutro. 12.45 x10E3/uL 1.2-7.6 [facility] Abs. Lymph. 0.32 x10E3/uL 1.0-3.5 [facility] Abs. [place]. 0.26 x10E3/uL 0.1-1.0 [facility] Abs. Eosin. 0.00 x10E3/uL 0.1-0.7 [facility] Abs. Baso. 0.01 x10E3/uL 0.0-0.1 [facility] Abs. Imm. Gran. 0.20 x10E3/uL 0.0-0.1 [facility] ANRBC% 0 % 0 [facility] DIFFERENTIAL CONFIRMED BY SLIDE REVIEW. ID Date Data Source [id number] 05/21/2020 12:46:00 AM EDT [facility] Name Value Range Interpretation Code Description Data Rosa rce(s) Supporting Document(s) FGLU 326 mg/dL 70-110 [facility] ID Date Data Source [id number] 05/20/2020 08:01:00 PM EDT [facility] Name Value Range Interpretation Code Description Data Rosa rce(s) Supporting Document(s) FGLU 71 mg/dL 70-110 [facility] ID Date Data Source [id number] 05/20/2020 03:28:00 PM EDT [facility] Name Value Range Interpretation Code Description Data Rosa rce(s) Supporting Document(s) VANCOMYCIN TROU 19.1 ug/mL 5-10 [facility] FOR SKIN AND SKIN STRUCTURE INFECTIONS, GUIDELINES RECOMMENDA TROUGH OF 10. FOR SEVERE INFECTIONS, (PNEUMONIA, OSTEOMYELITIS, MENINGITISAND BACTEREMIA) A TARGET TROUGH OF 15 TO 20 IS RECOMMENDED. ID Date Data Source [id number] 05/20/2020 11:56:00 AM EDT [facility] [place] [address] [id number] NOTEPATIENT NAME: ELA PONCE PHYSICIAN: MICHAEL WANG, MDAUTHOR: Breezy [place], Zhang. DATE: 05/18/20 MR#: [id number] NOTE DATE: 05/20/20 RM#: [id number] TIME: 1210 : 45SubjectiveCC/Hx Present IllnessBack painEvents Since Last EntryCurrently alert oriented x1. Very poor historian. On chronic oxygen. Furtherhistory limited. Reported thirst, would like to drink some water. Toleratingapplesauce . Seems more responsive today.ObjectiveVital SignsVital Signs-24 HRS05/19680140 4461 2145 0209Temp 99.0 98.7 97.6Pulse 99 83 95Resp 18 18 20B/P 132/78 154/72 158/73B/P MeanPulse Ox 96 94 96O2 Delivery Nasal cannula Nasal cannula Nasal cannulaO2 Flow Rate 3 3L 1TTkZ559/05/20 04164820 6270 0902 0922Temp 97.8Pulse 107Resp 24B/P 188/103 161/78 161/78B/P MeanPulse Ox 96O2 Delivery MD AT BEDSIDE Nasal cannula Nasal cannulaO2 Flow Rate 3LNC 3L 5JzI6Prcbrj/OutputIntake/Output Summary 24 hours05/19 1900 05/20 0700Intake Total [...] - 10 ug/mL) 14.4 HMicrobiologyMicrobiology Last 24 hours/09 1900 NARES: MRSA Screen - COMPResults Reviewed labs reviewedAssessment/PlanProblem List1. Back painStatus AcuteA&PPatient complained of back pain. On examination had lumbar and thoracictenderness in the setting of increasing CRP and increasing leukocytosis.Chronic spinal stenosis, possible concern for discitis. Patient transferred [facility] for MRI thoracic and lumbar spine.-We [...] pyelonephritis on CT abdomen pelvis-Continue with Zosyn pl-Koqfao-cl urine culture.5. HLD (hyperlipidemia)Status ChronicA&PContinue statin6. Spinal stenosisStatus ChronicA&PChronic history of spinal stenosis continue with pain management.7. DepressionStatus ChronicA&PContinue with duloxetine., BuSpar8. HypothyroidismStatus ChronicA&PCheck TSH.-Continue with levothyroxine.9. HTN (hypertension)Status ChronicA&P-Continue with lisinopril and increase hydralazine 50 mg p.o. twice daily.-Monitor blood pressure.10. CKD (chronic kidney disease)Status ChronicA&PHistory of CKD. SU at [facility].-Monitor renal function.11. DiabetesStatus ChronicA&PHypoglycemia, Levemir dose reduced, continue NovoLog via protocol, closemonitoring,12. AnxietyStatus AcuteA&Mendoza chronic benzodiazepines. Will continue.13. PVD (peripheral vascular disease)Status ChronicA&PHistory of stent placement.Continue with Plavix, statin-Continue to monitor.14. DebilityStatus ChronicA&P-Supportive care-Consider PT/OT when patient is more alert.15. HypoalbuminemiaStatus ChronicA&PEncourage p.o. intake. Nutrition supplementation.Ensure p.o. 3 times daily.16. Polysubstance abuseStatus ChronicA&PThiamine, folic acid, multivitamin, Ativan as needed for yaagnmreqp52. HypernatremiaStatus AcuteA&PLikely secondary to IV fluids, encourage oral hydration. Patient currentlydrinking lots of water.Additional Tlijw62-oymc-vvu female patient underlying medical history of COPD O2 dependent,spinal stenosis, depression, dyslipidemia, type 2 diabetes, nicotine addiction,anxiety, hypothyroidism, debility, CKD, peripheral vascular disease,hypoalbuminemia, polysubstance abuse, initially admitted to [facility] for right upper lobe pneumonia, sepsis, [...] rce(s) Supporting Document(s) ID Date Data Source [id number] 05/20/2020 09:32:00 PM EDT [facility] Name Value Range Interpretation Code Description Data Rosa rce(s) Supporting Document(s) FGLU 341 mg/dL 70-[address] [facility] ID Date Data Source [id number] 05/21/2020 02:05:00 AM EDT [facility] Name Value Range Interpretation Code Description Data Rosa rce(s) Supporting Document(s) FGLU 316 mg/dL 70-[address] [facility] ID Date Data Source [id number] 05/20/2020 06:21:00 AM EDT [facility] Name Value Range Interpretation Code Description Data Rosa rce(s) Supporting Document(s) USTSH 0.82 uIU/mL 0.270-4.[address] [facility] ID Date Data Source [id number] 05/20/2020 05:41:00 AM EDT [facility] Name Value Range Interpretation Code Description Data Rosa rce(s) Supporting Document(s) C-REACTIVE PROT 4.82 mg/dL 0.00-0.49 [facility] ID Date Data Source [id number] 05/20/2020 05:41:00 AM EDT [facility] Name Value Range Interpretation Code Description Data Rosa rce(s) Supporting Document(s) MAGNESIUM 2.1 mg/dL 1.6-2.[address] [facility] ID Date Data Source [id number] 05/20/2020 05:41:00 AM EDT [facility] Name Value Range Interpretation Code Description Data Rosa rce(s) Supporting Document(s) GLU 253 mg/dL 70-[address] [facility] Patients taking Sulfasalazine may have f alsely depressedGlucose levels. Patients taking Sulfapyridine may havefalsely elevated Glucose levels. Patients should be drawnfor Glucose before the initial administration of eitherdrug. BUN 20 mg/dL 7-23 [facility] CRE 0.747 mg/dL 0.500-1.300 [facility] GFR > 60 mL/min [facility] CHLORIDE 115 mmol/L 99-[address] [facility] NA 150 mmol/L 136-[address] [facility] POTASSIUM 3.5 mmol/L 3.5-5.1 [facility] TCO2 26 mmol/L 20-33 [facility] ANION GAP 12.5 10.0-20.0 [facility] CA 8.4 mg/dL 8.3-10.7 [facility] ALKALINE PHOS 151 U/L 45-[address] [facility] TP 4.9 g/dL 6.0-7.8 [facility] ALB 2.6 g/dL 3.5-5.0 [facility] ESRD Dialysis patient Albumin reference range: 2.9-4.4 g/dL GL 2.3 g/dL 2.3-3.5 [facility] A/G 1.1 1.0-2.5 [facility] T. BILIRUBIN 0.7 mg/dL 0.1-1.1 [facility] [place] Total Bilirubin is n ot recommended forpatients undergoing treatment with eltrombopag (Promacta)due to the potential for falsely elevated results. ALTI 53 U/L 6-54 [facility] Patients taking Sulfasalazine and/or Sul fapyridine may havefalsely depressed ALT levels. Patients should be drawn forALT before the initial administration of either drug. AST 59 U/L 6-[address] [facility] Patients taking Sulfasalazine and/or Sul fapyridine may havefalsely depressed AST levels. Patients should be drawn forAST before the initial administration of either drug. ID Date Data Source [id number] 05/20/2020 05:30:00 AM EDT [facility] Name Value Range Interpretation Code Description Data Rosa rce(s) Supporting Document(s) WBC 13.75 x10E3/uL 4.0-10.5 [facility] RBC 2.80 x10E6/uL 4.20-5.40 [facility] Hemoglobin 8.3 g/dL 12.0-16.0 [facility] Hematocrit 26.2 % 37.0-47.0 [facility] MCV 93.6 fL 81.0-99.0 [facility] MCH 29.6 pg 27.0-31.0 [facility] MCHC 31.7 g/dL 32.7-35.6 [facility] RDW 14.9 % 11.5-14.0 [facility] Platelet count 137 x10E3/uL 150-450 [facility] MPV 10.0 fl 6.9-9.5 [facility] Neutrophils 93.6 % 34-64 [facility] Lymphocytes 2.6 % 25-45 [facility] Monocytes 1.9 % 1.7-10.6 [facility] Eosinophils 0 % 0.4-7.0 [facility] Basophils 0.1 % 0.1-2.0 [facility] Imm. Gran. 1.8 % 0.1-2.0 [facility] Abs. Neutro. 12.87 x10E3/uL 1.2-7.6 [facility] Abs. Lymph. 0.36 x10E3/uL 1.0-3.5 [facility] Abs. [place]. 0.26 x10E3/uL 0.1-1.0 [facility] Abs. Eosin. 0.00 x10E3/uL 0.1-0.7 [facility] Abs. Baso. 0.01 x10E3/uL 0.0-0.1 [facility] Abs. Imm. Gran. 0.25 x10E3/uL 0.0-0.1 [facility] ANRBC% 0 % 0 [facility] DIFFERENTIAL CONFIRMED BY SLIDE REVIEW. ID Date Data Source [id number] 05/20/2020 05:14:00 AM EDT [facility] ANTI-COAGULANTS PT.IS TAKING: None Name Value Range Interpretation Code Description Data Rosa rce(s) Supporting Document(s) INR 0.92 0.91-1.09 [facility] INR THERAPEUTIC RANGES Prophylaxis of ve nous thrombosis ] (high risk surgery) ]Treatment of venous thrombosis ]Treatment of pulmonary embolism ]Prevention of systemic embolism ] 2.0-3.0Tissue heart valves ]Acute myocardial infarction ]Valvular disease ]Atrial fibrillation ]Recurrent systemic embolism ] Mechanical prosthetic heart valves -------- 2.5-3.5 ID Date Data Source [id number] 05/21/2020 02:12:00 PM EDT [facility] Name Value Range Interpretation Code Description Data Rosa rce(s) Supporting Document(s) FGLU 170 mg/dL 70-[address] [facility] ID Date Data Source [id number] 05/20/2020 09:34:00 AM EDT [facility] Name Value Range Interpretation Code Description Data Rosa rce(s) Supporting Document(s) MRSA/SAUR SCRN [facility] l [facility] ID Date Data Source [id number] 05/19/2020 06:44:00 PM [facility]T [facility] Name Value Range Interpretation Code Description Data Rosa rce(s) Supporting Document(s) FGLU 53 mg/dL 70-[address] [facility] ID Date Data Source [id number] 05/19/2020 04:55:00 PM EDT [facility] [address] [id number] NOTEPATIENT NAME: ELA PONCE PHYSICIAN: MICHAEL WANG, MDAUTHOR: Breezy GA, Zhang. DATE: 05/18/20 MR#: [id number] NOTE DATE: 05/19/20 RM#: [id number] TIME: 1715 [...] Nasal cannulaO2 Flow Rate 2LPM 3LPM 2 0TqR94905/19 0856TempPulseRespB/P 162/82B/P MeanPulse OxO2 Delivery Nasal cannulaO2 Flow Rate 4PzG6Ubrhuj/OutputIntake/Output Summary 24 hours05/18 1900 05/19 0700Intake Total [...] POSodium Chloride (SODIUM CHLORIDE 0.9%) 1,000 ML .[id number] IVSodium Chloride (Saline Flush Syr(10ML)) 10 ML [...] stenosis, possible concern for discitis. Patient transferred [facility] for MRI thoracic and lumbar spine.-We [...] pyelonephritis on CT abdomen pelvis-Continue with Zosyn tn-Dhbhyz-xh urine culture.5. HLD (hyperlipidemia)Status ChronicA&PContinue statin6. Spinal stenosisStatus ChronicA&PChronic history of spinal stenosis continue with pain management.7. DepressionStatus ChronicA&PContinue with duloxetine., BuSpar8. HypothyroidismStatus ChronicA&PCheck TSH.-Continue with levothyroxine.9. HTN (hypertension)Status ChronicA&P-Continue with lisinopril and hydralazine.-Monitor blood pressure.10. CKD (chronic kidney disease)Status ChronicA&PHistory of CKD. SU at [facility]. Creatinine today 0.9.-Monitor renal function.11. DiabetesStatus [...] acid, multivitamin, Ativan as needed for withdrawalAdditional [id number] female patient underlying medical history of COPD O2 dependent,spinal stenosis, depression, dyslipidemia, type 2 diabetes, nicotine addiction,anxiety, hypothyroidism, debility, CKD, peripheral vascular disease,hypoalbuminemia, polysubstance abuse, initially admitted to [facility] for right upper lobe pneumonia, sepsis, deconditioning with frequentfall, transferred given complains of back pain and worsening leukocytosisDVT prophylaxis Heparin subcuDisposition pending clinical improvement we will reattempt to get MRIResuscitation status Full codeCase discussed with case management specialist, nursing staffVTE ProphylaxisVTE Prophylaxis: Heparin subcu.DATE SIGNED: 05/19/20 Electronically SignedTIME SIGNED: 0095 SAAD FRIED MD Name Value Range Interpretation Code Description Data Rosa rce(s) Supporting Document(s) ID Date Data Source [id number] 05/19/2020 05:09:00 PM EDT [facility] Name Value Range Interpretation Code Description Data Rosa rce(s) Supporting Document(s) VANCOMYCIN TROU 14.4 ug/mL 5-10 [facility] FOR [facility] AND SKIN STRUCTURE INFECTIONS, GUIDELINES RECOMMENDA TROUGH OF 10. FOR SEVERE INFECTIONS, (PNEUMONIA, OSTEOMYELITIS, MENINGITISAND BACTEREMIA) A TARGET TROUGH OF 15 TO 20 IS RECOMMENDED. ID Date Data Source [id number] 05/19/2020 04:37:00 PM EDT [facility] Name Value Range Interpretation Code Description Data Rosa rce(s) Supporting Document(s) FGLU 174 mg/dL 70-[address] [facility] ID Date Data Source [id number] 05/19/2020 08:46:00 AM EDT [facility] Name Value Range Interpretation Code Description Data Rosa rce(s) Supporting Document(s) CKI 200 U/L 17-[address] [facility] ID Date Data Source [id number] 05/19/2020 07:39:00 PM EDT [facility] jer Name Value Range Interpretation Code Description Data Rosa [facility](s) Supporting Document(s) FGLU 337 mg/dL 70-[address] [facility] ID Date Data Source [id number] 05/19/2020 07:11:00 AM EDT [facility] Name Value Range Interpretation Code Description Data Rosa [facility](s) Supporting Document(s) GLU 319 mg/dL 70-[address] [facility] Patients taking Sulfasalazine may have f alsely depressedGlucose levels. Patients taking Sulfapyridine may havefalsely elevated Glucose levels. Patients should be drawnfor Glucose before the initial administration of eitherdrug. BUN 27 mg/dL 7-[address] [facility] CRE 0.993 mg/dL 0.500-1.300 [facility] GFR 58 mL/min [facility] CHLORIDE 111 mmol/L 99-[address] [facility] NA 146 mmol/L 136-147 [facility] POTASSIUM 3.9 mmol/L 3.5-5.1 [facility] TCO2 27 mmol/L 20-33 [facility] ANION GAP 11.9 10.0-20.0 [facility] CA 8.7 mg/dL 8.3-10.7 [facility] ALKALINE PHOS 110 U/L 45-117 [facility] TP 5.4 g/dL 6.0-7.8 [facility] ALB 2.6 g/dL 3.5-5.0 [facility] ESRD Dialysis patient Albumin reference range: 2.9-4.4 g/dL GL 2.8 g/dL 2.3-3.5 [facility] A/G 0.9 1.0-2.5 [facility] T. BILIRUBIN 0.5 mg/dL 0.1-1.1 [facility] [place] Total Bilirubin is n ot recommended forpatients undergoing treatment with eltrombopag (Promacta)due to the potential for falsely elevated results. ALTI 40 U/L 6-54 [facility] Patients taking Sulfasalazine and/or Sul fapyridine may havefalsely depressed ALT levels. Patients should be drawn forALT before the initial administration of either drug. AST 32 U/L 6-[address] [facility] Patients taking Sulfasalazine and/or Sul fapyridine may havefalsely depressed AST levels. Patients should be drawn forAST before the initial administration of either drug. ID Date Data Source [id number] 05/19/2020 06:45:00 AM EDT [facility] Name Value Range Interpretation Code Description Data Rosa rce(s) Supporting Document(s) WBC 13.42 x10E3/uL 4.0-10.5 [facility] RBC 2.98 x10E6/uL 4.20-5.[address] [facility] Hemoglobin 9.0 g/dL 12.0-16.0 [facility] Hematocrit 28.1 % 37.0-47.[address] [facility] MCV 94.3 fL 81.0-99.0 [facility] MCH 30.2 pg 27.0-31.0 [facility] MCHC 32.0 g/dL 32.7-35.6 [facility] RDW 15.0 % 11.5-14.0 [facility] Platelet count 144 x10E3/uL 150-450 [facility] MPV 10.0 fl 6.9-9.5 [facility] Neutrophils 88.7 % 34-64 [facility] Lymphocytes 3.6 % 25-[address] [facility] Monocytes 5.4 % 1.7-10.6 [facility] Eosinophils 0.8 % 0.4-7.0 [facility] Basophils 0.1 % 0.1-2.0 [facility] Imm. Gran. 1.4 % 0.1-2.0 [facility] Abs. Neutro. 11.89 x10E3/uL 1.2-7.6 [facility] Abs. Lymph. 0.48 x10E3/uL 1.0-3.5 [facility] Abs. [place]. 0.73 x10E3/uL 0.1-1.0 [facility] Abs. Eosin. 0.11 x10E3/uL 0.1-0.7 [facility] Baso. 0.02 x10E3/uL 0.0-0.1 [facility] Abs. Imm. Gran. 0.19 x10E3/uL 0.0-0.1 H [facility] spital ANRBC% 0 % 0 [facility] DIFFERENTIAL CONFIRMED BY SLIDE REVIEW. ID Date Data Source [id number] 05/19/2020 02:06:00 AM EDT [facility] Name Value Range Interpretation Code Description Data Rosa rce(s) Supporting Document(s) GLU 348 mg/dL 70-[address] [facility] Patients taking Sulfasalazine may have f alsely depressedGlucose levels. Patients taking Sulfapyridine may havefalsely elevated Glucose levels. Patients should be drawnfor Glucose before the initial administration of eitherdrug. BUN 27 mg/dL 7-[address] [facility] CRE 0.991 mg/dL 0.500-1.300 [facility] GFR 58 mL/min [facility] CHLORIDE 111 mmol/L 99-[address] [facility] NA 146 mmol/L 136-147 [facility] POTASSIUM 4.3 mmol/L 3.5-5.1 [facility] TCO2 27 mmol/L 20-33 [facility] ANION GAP 12.3 10.0-20.0 [facility] CA 8.9 mg/dL 8.3-10.7 [facility] ALKALINE PHOS 112 U/L 45-117 [facility] TP 5.3 g/dL 6.0-7.8 [facility] ALB 2.6 g/dL 3.5-5.0 [facility] ESRD Dialysis patient Albumin reference range: 2.9-4.4 g/dL GL 2.7 g/dL 2.3-3.5 [facility] A/G 1.0 1.0-2.5 [facility] T. BILIRUBIN 0.6 mg/dL 0.1-1.1 [facility] [employer] [place] Total Bilirubin is n ot recommended forpatients undergoing treatment with eltrombopag (Promacta)due to the potential for falsely elevated results. ALTI 41 U/L 6-54 [facility] Patients taking Sulfasalazine and/or Sul fapyridine may havefalsely depressed ALT levels. Patients should be drawn forALT before the initial administration of either drug. AST 30 U/L 6-38 [facility] Patients taking Sulfasalazine and/or Sul fapyridine may havefalsely depressed AST levels. Patients should be drawn forAST before the initial administration of either drug. ID Date Data Source [id number] 05/19/2020 01:55:00 AM EDT [facility] Name Value Range Interpretation Code Description Data Rosa rce(s) Supporting Document(s) WBC 14.51 x10E3/uL 4.0-10.5 [facility] RBC 3.16 x10E6/uL 4.20-5.40 [facility] Hemoglobin 9.5 g/dL 12.0-16.0 [facility] Hematocrit 29.7 % 37.0-47.0 [facility] MCV 94.0 fL 81.0-99.0 [facility] MCH 30.1 pg 27.0-31.0 [facility] MCHC 32.0 g/dL 32.7-35.6 [facility] RDW 15.0 % 11.5-14.[address] [facility] Platelet count 158 x10E3/uL 150-450 N [facility] ital MPV 9.9 fl 6.9-9.[address] [facility] Neutrophils 88.5 % 34-[address] [facility] Lymphocytes 3.6 % 25-[address] [facility] Monocytes 5.7 % 1.7-10.6 [facility] Eosinophils 0.8 % 0.4-7.0 [facility] Basophils 0.2 % 0.1-2.0 [facility] Imm. Gran. 1.2 % 0.1-2.0 [facility] Abs. Neutro. 12.84 x10E3/uL 1.2-7.6 [facility] Abs. Lymph. 0.52 x10E3/uL 1.0-3.5 [facility] Abs. [place]. 0.83 x10E3/uL 0.1-1.0 [facility] Abs. Eosin. 0.11 x10E3/uL 0.1-0.7 [facility] Abs. Baso. 0.03 x10E3/uL 0.0-0.1 N [facility] l Abs. Imm. Gran. 0.18 x10E3/uL 0.0-0.1 [facility] ANRBC% 0 % 0 [facility] DIFFERENTIAL CONFIRMED BY SLIDE REVIEW. ID Date Data Source [id number] 05/18/2020 11:40:00 PM EDT [facility] ANTI-COAGULANTS PT.IS TAKING: Plavix Name Value Range Interpretation Code Description Data Rosa rce(s) Supporting Document(s) APTT 22.2 SECONDS 21.2-31.2 [facility] NOTE NEW REFERENCE RANGE EFFECTIVE ID Date Data Source [id number] 05/18/2020 11:40:00 PM EDT [facility] ANTI-COAGULANTS PT.IS TAKING: Plavix Name Value Range Interpretation Code Description Data Rosa rce(s) Supporting Document(s) INR 0.91 0.91-1.09 [facility] INR THERAPEUTIC RANGES Prophylaxis of ve nous thrombosis ] (high risk surgery) ]Treatment of venous thrombosis ]Treatment of pulmonary embolism ]Prevention of systemic embolism ] 2.0-3.0Tissue heart valves ]Acute myocardial infarction ]Valvular disease ]Atrial fibrillation ]Recurrent systemic embolism ] Mechanical prosthetic heart valves -------- 2.5-3.5 ID Date Data Source [id number] 05/18/2020 11:01:00 PM EDT [facility] Name Value Range Interpretation Code Description Data Rosa rce(s) Supporting Document(s) TROPONIN HS 67.8 ng/L 3.0-82.3 [facility] ID Date Data Source [id number] 05/18/2020 11:01:00 PM EDT [facility] Name Value Range Interpretation Code Description Data Rosa rce(s) Supporting Document(s) LACTIC ACID COMFORT 0.4 mmol/L 0.4-2.0 [facility] ID Date Data Source [id number] 05/18/2020 11:00:00 PM EDT [facility] Name Value Range Interpretation Code Description Data Rosa rce(s) Supporting Document(s) ESR 36 MM/HR 0-[address] [facility] ID Date Data Source [id number] 05/25/2020 12:12:00 PM EDT [facility] Name Value Range Interpretation Code Description Data Rosa rce(s) Supporting Document(s) [facility] ID Date Data Source [id number] 05/25/2020 12:11:00 PM EDT [facility] Name Value Range Interpretation Code Description Data Rosa rce(s) Supporting Document(s) [facility] ID Date Data Source [id number] 05/18/2020 10:59:00 PM EDT [facility] Name Value Range Interpretation Code Description Data Rosa rce(s) Supporting Document(s) C-REACTIVE PROT 3.66 mg/dL 0.00-0.49 [facility] ID Date Data Source [id number] 05/18/2020 09:29:00 PM EDT [facility] [address] [id number] AND PHYSICALPATIENT NAME: ELA PONCE MR#: [id number] PHYSICIAN: MICHAEL WANG MDAUTHOR: Michael Wang MD DATE: 05/18/20 RM#: [id number] & PHYSICAL DATE: 05/18/20 : 45EVALUATION TIME: Chi Complaint[facility]History [facility] Presenting [id number]-tau female past medical history of COPD, spinal stenosis, depression,hyperlipidemia, type 2 diabetes, nicotine addiction, anxiety, hypothyroidism,debility, CKD, peripheral vascular disease, hypoalbuminemia, was initiallyadmitted at [facility] being treated for right upper lobe pneumonia andsepsis on antibiotics and extreme deconditioning, unsteady gait and frequentfalls during the hospitalization patient complained of back pain on examinationwas noted to have severe tenderness over the lumbar and thoracic spine. CRPinitially was 6.5 later became elevated to 25 with corresponding rise and WBCto 23. Decision was made to initially transfer patient to [facility] for an MRI momo done to rule out discitis and then patient be transferred back to [facility] however upon arrival at [facility] patient refused the MRI and patient wasbrought back to [facility]. At [facility] patient became agitated andsomewhat combative sustained ecchymosis in bilateral upper extremities.Patient had to be given B-52. [facility] to [facility] again for the second time patientbecame agitated. At [facility] patient was also found to have UTI, CT ofthe abdomen and pelvis showed some questionable/possible pyelonephritis.Patient was given vancomycin and Zosyn at [facility] and transferred to [facility]. When I evaluated patient patient was completely [...] patient sedated.ExamVital SignsVital Signs-24 HRS05/18 05/18 05/19 05/19233123 0669 0132 0543Temp 97.9 97.4 97.8Pulse 110 99 100Resp 17 17 17B/P 160/91 159/63 160/67B/P MeanPulse Ox 92 98 93O2 Delivery Nasal cannula Nasal cannula Nasal cannula Nasal cannulaO2 Flow Rate 2LPM 3LPM 2 1RhA7Ktiaiyhg ExaminationGeneral Appearance sedated, Response to verbal and [...] %) 0ESR (0 - 20 MM/HR) 36 H04/915792ZemuhnsvuRdhqwa (136 - 147 mmol/L) 146Potassium (3.5 - [...] x10E3/uL) 0.02Nucleated RBC % (auto) (0 %) 2Vgbnldeoxrdr91/08 2200 BLOOD: Blood Culture - RECD05/18 2199 BLOOD: Blood Culture - [facility]CDItufts [facility]All [facility].Chest x-ray:Impression:Persistent parenchymal disease in the right [...] leuko cytosis.Concern for discitis. Patient transferred to [facility] for MRI thoracic and lumbarspine.-We will obtain [...] obstructive pulmonary disease)A&P2 L home O2 dependent.-Oxygen avjvfifqogoyrrf46. CKD (chronic kidney disease)A&PHistory of CKD. SU at [facility]. Creatinine today 0.9.-Monitor renal function.11. DiabetesA&PPlaced on insulin sliding scale.-Monitor fingersticks.-Patient had hypoglycemic episodes at [facility] and her Levemir dose wasdecreased to [...] rce(s) Supporting Document(s) ID Date Data Source [id number] 05/18/2020 07:05:00 PM EDT [facility] Summary of HospitalizationReason for Ad missionweakness, [...] avail and made arrangements for transfer to [facility] this morining for MRI and PICC line [...] rce(s) Supporting Document(s) ID Date Data Source [id number] 05/18/2020 06:53:00 PM EDT [facility] Discharge Appointments Outpatient Tests *patient discharged [...] rce(s) Supporting Document(s) ID Date Data Source [id number] 05/18/2020 02:46:00 PM EDT [facility] [...] rce(s) Supporting Document(s) ID Date Data Source [id number] 05/18/2020 02:43:00 PM EDT [facility] TSYSORDER [id number] Name Value Range Interpretation Code Description Data Rosa rce(s) Supporting Document(s) ARTERIAL BLOOD GAS pH 7.45 7.35-7.45 [facility] spital ARTERIAL BLOOD GAS PCO2 39.3 mmHg 30-45 [facility] ARTERIAL BLOOD GAS PO2 67 mmHg 75-100 L [facility] ARTERIAL BLOOD GAS HCO3 26.9 meq/L 17-23 H [facility] ARTERIAL BLOOD GAS BASE EXCESS 3.1 -2.0-2.0 H [facility] ARTERIAL BLD GAS O2 SATURATION 94.9 % 90-98 [facility] ARTERIAL BLOOD GAS CTCO2 28.1 mmol/L 23.0-31.0 [facility] ID Date Data Source [id number] 05/18/2020 03:18:00 PM EDT [facility] l TSYSORDER [id number] Name Value Range Interpretation Code Description Data Rosa rce(s) Supporting Document(s) TROPONIN I 0.071 ng/mL 0.000-0.056 *H [facility] ID Date Data Source [id number] 05/18/2020 03:01:00 PM EDT [facility] l TSYSORDER [id number] Name Value Range Interpretation Code Description Data Rosa rce(s) Supporting Document(s) LACTIC ACID 0.6 mmol/L 0.4-2.0 [facility] ID Date Data Source [id number] 05/18/2020 01:43:00 PM EDT [facility] Exam Number: [id number] EXAMINATI N: 05/18/2020 11:55 EDTU/S GUIDE FOR VASCULAR [...] rce(s) Supporting Document(s) ID Date Data Source [id number] 05/18/2020 10:15:00 AM EDT [facility] Name Value Range Interpretation Code Description Data Rosa rce(s) Supporting Document(s) URINE RBC 1-3 /hpf 0-3 [facility] URINE WBC 0-2 /hpf 0-5 H [facility] URINE EPITHELIAL CELLS 2+ /hpf [facility] UR[facility] BACTERIA TRACE NONE SEEN H [facility] URINE MUCUS 1+ NEGATIVE [facility] URINE AMORPHOUS SEDIMENT 3+ [facility] ID Date Data Source [id number] 05/18/2020 10:14:00 AM EDT [facility] ital Name Value Range Interpretation Code Description Data Rosa rce(s) Supporting Document(s) URINE COLOR. YELLOW [facility] URINE APPEARANCE SLIGHTY CLOUDY [facility] GLUCOSE (UA) NEGATIVE mg/dL NEGATIVE [facility] URINE BILIRUBIN NEGATIVE NEGATIVE [facility] URINE KETONE NEGATIVE mg/dL NEGATIVE [facility] SPECIFIC GRAVITY,URINE 1.020 1.005-1.030 [facility] URINE BLOOD NEGATIVE NEGATIVE [facility] PH,URINE 6.5 5.0-9.0 [facility] URINE PROTEIN 4+(>=300) mg/dL NEGATIVE [facility] ital URINE UROBILINOGEN NORMAL(0.2-1) mg/dL 0-1 R [facility] URINE NITRATE NEGATIVE NEGATIVE [facility] URINE LEUKOCYTE ESTERASE NEGATIVE NEGATIVE [facility] ID Date Data Source [id number] 05/18/2020 09:03:00 AM T [facility] l DATE OF EXAMINATION: 05/18/2020 8:18 EDT [...] rce(s) Supporting Document(s) ID Date Data Source [id number] 05/18/2020 09:01:00 AM EDT [facility] [...] in the right upper lobe is likely operations support representative ofpneumonia and should be followed to complete resolution. IMPRESSION: Exjr-je-qidlegml parenchymal disease in the right upper lobe consistent withpneumonia should be followed to complete resolution. Severe calcified coronary arterial plaque formation likely hemodynamicallysignificant. Electronically signed in [id number] by: Tabitha De La Vega M.D. 05/18/2020 8:56 EDT Name Value Range Interpretation Code Description Data Rosa rce(s) Supporting Document(s) ID Date Data Source [id number] 05/18/2020 09:00:00 AM EDT [facility] [...] rce(s) Supporting Document(s) ID Date Data Source [id number] 05/18/2020 07:17:00 AM EDT [facility] Name Value Range Interpretation Code Description Data Rosa rce(s) Supporting Document(s) COVID-19 NEGATIVE [facility] This lab was ordered by [facility] and reported by [facility]. ID Date Data Source [id number] 05/18/2020 07:36:00 AM EDT [facility] Name Value Range Interpretation Code Description Data [facility] rce(s) Supporting Document(s) COVID-19 NEGATIVE NEGATIVE [facility] Negative results should be treated as [...] are for the indentification of SARS-CoV-2 RNA. RcdAAMO-DnT-5 RNA is generally detectable in respiratorysamples during the actue phase of infection. ID Date Data Source [id number] 05/18/2020 07:38:00 AM [facility]T [facility] Name Value Range Interpretation Code Description Data Rosa rce(s) Supporting Document(s) ERYTHROCYTE SEDIMENTATION RATE 13 mm/hr 0-30 [facility] ID Date Data Source [id number] 05/18/2020 07:03:00 AM EDT [facility] Name Value Range Interpretation Code Description Data Rosa rce(s) Supporting Document(s) C REACTIVE PROTEIN 25.7 mg/L 0.0-3.0 [facility] ID Date Data Source [id number] 05/18/2020 06:46:00 AM EDT [facility] Name Value Range Interpretation Code Description Data Rosa rce(s) Supporting Document(s) GLUCOSE 258 mg/dL 74-106 H [facility] BLOOD UREA NITROGEN 34 mg/dL 7-18 H [facility] ital CREATININE 1.40 mg/dL 0.6-1.0 H [facility] SODIUM 139 mmol/L 136-145 [facility] POTASSIUM 4.9 mmol/L 3.5-5.1 [facility] CHLORIDE 102 mmol/L 98-107 [facility] CO2 27 mmol/L 21-32 [facility] CALCIUM 9.2 mg/dL 8.5-10.1 [facility] ANION GAP 10.0 mmol/L 5-12 [facility] GLOMERULAR FILTRATION RATE 37 mL/min [facility] GFR IS CALCULATED IN mL/min/1.73m2 STEVENSON L FUNCTION: >90MILDLY DECREASED: 60-89MILDY TO MODERATELY DECREASED: 45-59 MODERATELY TO SEVERELY DECREASED: 30-44SEVERELY DECREASED: 15-29RENAL FAILURE: <15 ID Date Data Source [id number] 05/18/2020 06:36:00 AM EDT [facility] Name Value Range Interpretation Code Description Data Rosa rce(s) Supporting Document(s) WHITE BLOOD COUNT 14.0 K/mm3 4.0-10.0 [facility] RED BLOOD COUNT 3.70 M/mm3 4.00-5.50 L [facility] HEMOGLOBIN 11.3 gm/dL 12.0-16.0 L [facility] HEMATOCRIT 33.4 % 36.0-48.8 L [facility] MEAN CELL VOLUME 90.3 fl 80-96 [facility] l MEAN CORPUSCULAR HEMOGLOBIN 30.5 pg 27.0-31.0 [facility] MEAN CORPUSCULAR HGB CONC 33.8 g/dl 32.0-36.0 [facility] RED CELL DISTRIBUTION WIDTH 15.1 % 10.0-14.5 H [facility] PLATELET COUNT 159 K/mm3 172-450 L [facility] MEAN PLATELET VOLUME 10.1 fl 9.0-13.0 [facility] pital GRAN % 85.2 % 50-80.0 H [facility] IG% 2.1 % 0.0-0.2 H [facility] LYMPH % 6.5 % 25.0-50.0 L [facility] MONO % 5.7 % 2.0-10.0 [facility] EOS % 0.4 % 0-5.0 [facility] BASO % 0.1 % 0.0-2.0 [facility] GRAN # 12.0 K/mm3 2.0-8.00 H [facility] IG# 0.3 K/mm3 0.0-0.2 H [facility] LYMPH # 0.9 K/mm3 1.0-5.0 L [facility] MONO # 0.8 K/mm3 0.10-1.20 [facility] EOS # 0.1 K/mm3 0.0-0.5 [facility] BASO # 0.0 K/mm3 0.0-0.2 [facility] ID Date Data Source [id number] 05/17/2020 10:50:00 PM EDT [facility] Name Value Range Interpretation Code Description Data Rosa rce(s) Supporting Document(s) URINE AMPHETAMINES POSITIVE <1000 ng/mL [facility] COCAINE, URINE NEGATIVE <300 ng/mL [facility] THC,URINE POSITIVE <50 ng/mL H [facility] URINE BENZODIAZEPINES POSITIVE <300 ng/mL [facility] URINE,TCA NEGATIVE <1000 ng/mL [facility] IF A NEGATIVE RESULT IS OBTAINED AND ING ESTION OF TRICYCLICANTIDEPRESSANTS IS SUSPECTED, A SERUM SAMPLE SHOULD BEOBTAINED AND TESTED USING AN APPROPRIATE METHOD. URINE BARBITURATES NEGATIVE <300 ng/mL [facility] MDMA NEGATIVE <500 ng/mL [facility] URINE,OPIATES NEGATIVE <300 ng/mL [facility] PCP,URINE NEGATIVE <25 ng/mL [facility] OXYCODONE URINE POSITIVE <100 ng/mL H [facility] l PROPOXYPHENE NEGATIVE <300 ng/mL [facility] THESE TESTS ARE PERFORMED USING AN IMMU NOASSAY FOR THEQUALITATIVE DETERMINATION OF THE PRESENCE OF THE MAJORMETABOLITES OF DRUGS OF ABUSE. THESE TESTS ARE ONLY ASCREENING AND NOT CONFIRMATORY. CLINICAL CONSIDERATION ANDPROFESSIONAL JUDGMENT MUST BE APPLIED TO ANY DRUG OF ABUSETEST RESULT. ID Date Data Source [id number] 05/20/2020 01:16:00 PM EDT [facility] RARE WBCSRARE SECSSMALL NUMBERS GRAM POS BACILLISMALL NUMBERS GRAM-POSITIVE COCCI IN [place] GRAM NEGATIVE BACILLIRARE YEAST LIKE Name Value Range Interpretation Code Description Data Rosa rce(s) Supporting Document(s) ORGANISM [facility] COLONY COUNT N [facility] ID Date Data Source [id number] 05/17/2020 12:07:00 PM EDT [facility] DATE OF EXAMINATION: 05/17/2020 7:50 EDT [...] rce(s) Supporting Document(s) ID Date Data Source [id number] 05/19/2020 02:06:00 PM EDT [facility] Name Value Range Interpretation Code Description Data Rosa rce(s) Supporting Document(s) SPECIMEN SOURCE Urine . [facility] STREPTOCOCCUS PEUMONIAE AG Negative Negative [facility] er Hospital BODY FLUID CULTURE STERILE Not indicated. . [facility] ORGANISM ID Not indicated. . [facility] PLEASE NOTE: Comment . [facility] [employer] standar ds require aculture to be performed on CSF specimens submitted forbacterial antigen testing. (CAP SANDRA.[id number]) Urine specimenswill not be cultured.Performed at: [address] [id number] Director: Ramu Cota MD, Phone: [phone] ID Date Data Source [id number] 05/19/2020 02:05:00 PM EDT [facility] Name Value Range Interpretation Code Description Data Rosa rce(s) Supporting Document(s) Specimen Source Urine [facility] Streptococcus pneumoniae Ag Negative Negative [facility] Body Fluid Culture, Sterile Not indicated. [facility] Organism ID Not indicated. [facility] Please Note: [facility] [employer] standar ds require a culture to beperformed on CSF specimens submitted for bacterial antigen testing.(CAP [id number]) Urine specimens will not be cultured. ID Date Data Source [id number] 05/18/2020 03:26:00 PM EDT [facility] Is the patient hospitalized ([facility] or [facility])? Y Name Value Range Interpretation Code Description Data Rosa rce(s) Supporting Document(s) L PNEUMO SERO 1 NEGATIVE NEGATIVE N [facility] MANUAL ENTRY RECHECKED Screen for [...] (REFERENCE RANGE= NEGATIVE) ID Date Data Source [id number] 05/17/2020 12:37:00 PM EDT [facility] Name Value Range Interpretation Code Description Data Rosa rce(s) Supporting Document(s) LEGIONELLA AG URINE-ANGELES SENT TO [facility] ID Date Data Source [id number] 05/23/2020 08:17:00 AM EDT [facility] Name Value Range Interpretation Code Description Data Rosa rce(s) Supporting Document(s) [facility] ID Date Data Source [id number] 05/23/2020 08:15:00 AM EDT [facility] Name Value Range Interpretation Code Description Data Rosa rce(s) Supporting Document(s) [facility] ID Date Data Source [id number] 05/17/2020 09:02:00 AM [facility] l Name Value Range Interpretation Code Description Data Rosa rce(s) Supporting Document(s) LACTIC ACID 1.4 mmol/L 0.4-2.0 [facility] ID Date Data Source [id number] 05/17/2020 08:39:00 AM [facility] l Name Value Range Interpretation Code Description Data Rosa rce(s) Supporting Document(s) PARTIAL THROMBOPLASTIN TIME 22.5 SECONDS 21.2-27.3 [facility] ID Date Data Source [id number] 05/17/2020 08:39:00 AM [facility] l Name Value Range Interpretation Code Description Data Rosa rce(s) Supporting Document(s) PROTHROMBIN TIME (PATIENT) 9.9 SECONDS 9.1-11.6 [facility] INR 0.95 0.87-1.06 [facility] ID Date Data Source [id number] 05/17/2020 08:07:00 AM [facility] l Name Value Range Interpretation Code Description Data Rosa rce(s) Supporting Document(s) ERYTHROCYTE SEDIMENTATION RATE 14 mm/hr 0-30 [facility] ID Date Data Source [id number] 05/17/2020 07:09:00 AM [facility] l Name Value Range Interpretation Code Description Data Rosa rce(s) Supporting Document(s) WHITE BLOOD COUNT 23.1 K/mm3 4.0-10.0 H [facility] jer RED BLOOD COUNT 3.87 M/mm3 4.00-5.50 L [facility] HEMOGLOBIN 11.7 gm/dL 12.0-16.0 L [facility] HEMATOCRIT 34.6 % 36.0-48.8 L [facility] MEAN CELL VOLUME 89.4 fl 80-96 [facility] MEAN CORPUSCULAR HEMOGLOBIN 30.2 pg 27.0-31.0 H [facility] MEAN CORPUSCULAR HGB CONC 33.8 g/dl 32.0-36.0 [facility] RED CELL DISTRIBUTION WIDTH 15.1 % 10.0-14.5 H [facility] PLATELET COUNT 284 K/mm3 172-450 [facility] MEAN PLATELET VOLUME 9.8 fl 9.0-13.0 [facility] pital GRAN % 82.0 % 50-80.0 H [facility] IG% 1.8 % 0.0-0.2 H [facility] LYMPH % 7.4 % 25.0-50.0 L [facility] MONO % 7.8 % 2.0-10.0 [facility] EOS % 0.9 % 0-5.0 [facility] BASO % 0.1 % 0.0-2.0 [facility] GRAN # 19.0 K/mm3 2.0-8.00 *H [facility] IG# 0.4 K/mm3 0.0-0.2 H [facility] LYMPH # 1.7 K/mm3 1.0-5.0 [facility] MONO # 1.8 K/mm3 0.10-1.20 H [facility] EOS # 0.2 K/mm3 0.0-0.5 [facility] BASO # 0.0 K/mm3 0.0-0.2 [facility] ID Date Data Source [id number] 05/17/2020 07:36:00 AM EDT [facility] l Name Value Range Interpretation Code Description Data Rosa rce(s) Supporting Document(s) C REACTIVE PROTEIN 6.5 mg/L 0.0-3.0 H [facility] ID Date Data Source [id number] 05/17/2020 07:36:00 AM EDT [facility] l Name Value Range Interpretation Code Description Data Rosa rce(s) Supporting Document(s) GLUCOSE 31 mg/dL 74-106 *L [facility] BLOOD UREA NITROGEN 32 mg/dL 7-18 H [facility] ital CREATININE 1.25 mg/dL 0.6-1.0 H [facility] SODIUM 140 mmol/L 136-145 [facility] POTASSIUM 4.4 mmol/L 3.5-5.1 [facility] CHLORIDE 102 mmol/L 98-107 [facility] CO2 29 mmol/L 21-32 [facility] CALCIUM 9.3 mg/dL 8.5-10.1 [facility] ANION GAP 9.0 mmol/L 5-12 [facility] GLOMERULAR FILTRATION RATE 42 mL/min [facility] GFR IS CALCULATED IN mL/min/1.73m2 STEVENSON L FUNCTION: >90MILDLY DECREASED: 60-89MILDY TO MODERATELY DECREASED: 45-59 MODERATELY TO SEVERELY DECREASED: 30-44SEVERELY DECREASED: 15-29RENAL FAILURE: <15 AST 47 U/L 15-37 H [facility] ALT 51 U/L 12-78 [facility] ALKALINE PHOSPHATASE 121 U/L 46-116 H [facility] pital TOTAL BILIRUBIN 0.3 mg/dL 0.2-1.0 [facility] TOTAL PROTEIN 5.9 g/dl 6.4-8.2 L [facility] ALBUMIN 3.1 gm/dL 3.4-5.0 L [facility] ID Date Data Source [id number] 05/18/2020 03:25:00 PM [facility] Name Value Range Interpretation Code Description Data Rosa rce(s) Supporting Document(s) MRSA/SAUR SCRN [facility] ID Date Data Source [id number] 05/17/2020 12:28:00 AM EDT [facility] l HistoryChief Complaint/Admit ReasonRigh t upper [...] medications who presented to emergency department of [facility] on 05/10/2020 with generalized malaise, severe weakness, cough and intractable back pain. She was found to have leucocytosis of18.2 and right upper and right lower lobe pneumonia with mediastinal lymphadenopathy. Of note Mrs Ponce was seen a day before her arrival here at [facility] and was discharged home with Cefdinir and [...] negative unless mentioned above ExamVital SignsVital Signs 05/161 Temp 99.1 Pulse 96 Resp 16 B/P [...] normal capillary refill, no calf tendernessNeurologic/Psychiatric alert, general agent II-XII nml as tested, normal mood/affect, no [...] rce(s) Supporting Document(s) ID Date Data Source [id number] 05/17/2020 12:22:00 AM EDT [facility] HospitalizationHospital Cour seChief Complaint/Admit ReasonRight [...] medications who presented to emergency department of [facility] on 05/10/2020 with generalized malaise, severe weakness, cough and intractable back pain. She was found to have leucocytosis of18.2 and right upper and right lower lobe pneumonia with mediastinal lymphadenopathy. Of note Mrs Ponce was seen a day before her arrival here at [facility] and was discharged home with Cefdinir and [...] normal capillary refill, no calf tendernessNeurologic/Psychiatric alert, general agent II- XII nml as tested, normal mood/affect, [...] rce(s) Supporting Document(s) ID Date Data Source [id number] [facility]/16[facility]2020 07[facility]46[facility] Name Value Range Interpretation Code Description Data Rosa rce(s) Supporting Document(s) ERYTHROCYTE SEDIMENTATION RATE 28 mm/hr 0-30 [facility] ID Date Data Source [id number] 05/16/2020 06:49:00 AM [facility] Name Value Range Interpretation Code Description Data [facility] rce(s) Supporting Document(s) WHITE BLOOD COUNT 13.3 K/mm3 4.0-10.0 H [facility] jre RED BLOOD COUNT 3.60 M/mm3 4.00-5.50 L [facility] HEMOGLOBIN 10.9 gm/dL 12.0-16.0 [facility] HEMATOCRIT 32.5 % 36.0-48.8 [facility] MEAN CELL VOLUME 90.3 fl 80-96 [facility] MEAN CORPUSCULAR HEMOGLOBIN 30.3 pg 27.0-31.0 [facility] MEAN CORPUSCULAR HGB CONC 33.5 g/dl 32.0-36.0 [facility] RED CELL DISTRIBUTION WIDTH 14.7 % 10.0-14.5 H [facility] PLATELET COUNT 174 K/mm3 172-450 [facility] MEAN PLATELET VOLUME 10.0 fl 9.0-13.0 [facility] pital GRAN % 93.2 % 50-80.0 H [facility] IG% 1.4 % 0.0-0.2 H [facility] LYMPH % 2.4 % 25.0-50.0 *L [facility] MONO % 3.0 % 2.0-10.0 [facility] EOS % 0.0 % 0-5.0 [facility] BASO % 0.0 % 0.0-2.0 [facility] GRAN # 12.4 K/mm3 2.0-8.00 H [facility] IG# 0.2 K/mm3 0.0-0.2 [facility] LYMPH # 0.3 K/mm3 1.0-5.0 L [facility] MONO # 0.4 K/mm3 0.10-1.20 [facility] EOS # 0.0 K/mm3 0.0-0.5 [facility] BASO # 0.0 K/mm3 0.0-0.2 [facility] ID Date Data Source [id number] 05/16/2020 07:12:00 AM EDT [facility] Name Value Range Interpretation Code Description Data Rosa rce(s) Supporting Document(s) GLUCOSE 323 mg/dL 74-106 H [facility] BLOOD UREA NITROGEN 24 mg/dL 7-18 H [facility] ital CREATININE 1.12 mg/dL 0.6-1.0 H [facility] SODIUM 136 mmol/L 136-145 [facility] POTASSIUM 5.3 mmol/L 3.5-5.1 H [facility] CHLORIDE 99 mmol/L 98-107 [facility] CO2 29 mmol/L 21-32 [facility] CALCIUM 9.1 mg/dL 8.5-10.1 [facility] ANION GAP 8.0 mmol/L 5-12 [facility] GLOMERULAR FILTRATION RATE 48 mL/min [facility] GFR IS CALCULATED IN mL/min/1.73m2 STEVENSON L FUNCTION: >90MILDLY DECREASED: 60-89MILDY TO MODERATELY DECREASED: 45-59 MODERATELY TO SEVERELY DECREASED: 30-44SEVERELY DECREASED: 15-29RENAL FAILURE: <15 AST 28 U/L 15-37 [facility] ALT 41 U/L 12-78 [facility] ALKALINE PHOSPHATASE 107 U/L 46-116 [facility] pital TOTAL BILIRUBIN 0.3 mg/dL 0.2-1.0 [facility] TOTAL PROTEIN 5.9 g/dl 6.4-8.2 L [facility] ALBUMIN 2.7 gm/dL 3.4-5.0 L [facility] ID Date Data Source [id number] 05/15/2020 03:58:00 PM EDT [facility] Progress Note GeneralEncounter:Chart re viewed. Patient [...] normal capillary refill, no calf tendernessNeurologic/Psychiatric alert, general agent II-XII nml as tested, normal mood/affect, no [...] rce(s) Supporting Document(s) ID Date Data Source [id number] 05/15/2020 12:05:00 PM [facility]T [facility] Note GeneralEncounter:Chart re viewed. Patient [...] that. Upon the beginning of my rotationMrs Kris announced shewas living as we do [...] no calf tenderness, no pedal edemaNeurologic/Psychiatric alert, general agent II-XII nml as tested, normal mood/affect, no [...] 10/13/15)fluoxetine (unknown 10/13/15)neomycin (unknown 10/13/15)polymyxin B (unknown 09/02/16) Problem List 1. Community acquired pneumonia A&PContinue [...] lumbar region A&PUnlikely surgical candidate due to uw2lwhli use and nonadherence 10. Ambulatory dysfunction A&PSevere [...] Value Range Interpretation Code Description Data Rosa sparrow(s) Supporting Document(s) ID Date Data Source [id number] 05/15/2020 07:25:00 AM EDT [facility] Name Value Range Interpretation Code Description Data [facility] Supporting Document(s) GLUCOSE 138 mg/dL 74-106 H [facility] BLOOD UREA NITROGEN 27 mg/dL 7-18 H [facility] ital CREATININE 1.08 mg/dL 0.6-1.0 H [facility] SODIUM 139 mmol/L 136-145 [facility] POTASSIUM 4.6 mmol/L 3.5-5.1 [facility] CHLORIDE 103 mmol/L 98-107 [facility] CO2 26 mmol/L 21-32 [facility] CALCIUM 9.1 mg/dL 8.5-10.1 [facility] ANION GAP 10.0 mmol/L 5-12 [facility] GLOMERULAR FILTRATION RATE 50 mL/min [facility] GFR IS CALCULATED IN mL/min/1.73m2 STEVENSON L FUNCTION: >90MILDLY DECREASED: 60-89MILDY TO MODERATELY DECREASED: 45-59 MODERATELY TO SEVERELY DECREASED: 30-44SEVERELY DECREASED: 15-29RENAL FAILURE: <15 AST 27 U/L 15-37 [facility] ALT 37 U/L 12-78 [facility] ALKALINE PHOSPHATASE 98 U/L 46-116 [facility] TOTAL BILIRUBIN 0.3 mg/dL 0.2-1.0 [facility] TOTAL PROTEIN 5.6 g/dl 6.4-8.2 L [facility] ALBUMIN 2.8 gm/dL 3.4-5.0 L [facility] ID Date Data Source [id number] 05/15/2020 07:06:00 AM EDT [facility] Name Value Range Interpretation Code Description Data Rosa rce(s) Supporting Document(s) WHITE BLOOD COUNT 13.5 K/mm3 4.0-10.0 H [facility] jer RED BLOOD COUNT 3.64 M/mm3 4.00-5.50 L [facility] HEMOGLOBIN 11.1 gm/dL 12.0-16.0 L [facility] HEMATOCRIT 32.7 % 36.0-48.8 L [facility] MEAN CELL VOLUME 89.8 fl 80-96 [facility] l MEAN CORPUSCULAR HEMOGLOBIN 30.5 pg 27.0-31.0 [facility] MEAN CORPUSCULAR HGB CONC 33.9 g/dl 32.0-36.0 [facility] RED CELL DISTRIBUTION WIDTH 14.8 % 10.0-14.5 H [facility] PLATELET COUNT 182 K/mm3 172-450 [facility] MEAN PLATELET VOLUME 10.0 fl 9.0-13.0 [facility] pital GRAN % 93.7 % 50-80.0 [facility] IG% 1.2 % 0.0-0.2 H [facility] LYMPH % 2.0 % 25.0-50.0 *L [facility] MONO % 3.0 % 2.0-10.0 [facility] EOS % 0.0 % 0-5.0 [facility] BASO % 0.1 % 0.0-2.0 [facility] GRAN # 12.7 K/mm3 2.0-8.00 H [facility] IG# 0.2 K/mm3 0.0-0.2 [facility] LYMPH # 0.3 K/mm3 1.0-5.0 L [facility] MONO # 0.4 K/mm3 0.10-1.20 [facility] EOS # 0.0 K/mm3 0.0-0.5 [facility] BASO # 0.0 K/mm3 0.0-0.2 [facility] ID Date Data Source [id number] 05/14/2020 01:01:00 PM EDT [facility] DATE OF EXAMINATION: 05/14/2020 11:08 EDT [...] rce(s) Supporting Document(s) ID Date Data Source [id number] 05/14/2020 06:18:00 AM EDT [facility] Name Value Range Interpretation Code Description Data Rosa rce(s) Supporting Document(s) GLUCOSE 229 mg/dL 74-106 H [facility] BLOOD UREA NITROGEN 30 mg/dL 7-18 H [facility] ital CREATININE 1.16 mg/dL 0.6-1.0 H [facility] SODIUM 137 mmol/L 136-145 [facility] POTASSIUM 5.5 mmol/L 3.5-5.1 H [facility] CHLORIDE 102 mmol/L 98-107 [facility] CO2 27 mmol/L 21-32 [facility] CALCIUM 8.7 mg/dL 8.5-10.1 [facility] ANION GAP 8.0 mmol/L 5-12 [facility] GLOMERULAR FILTRATION RATE 46 mL/min [facility] GFR IS CALCULATED IN mL/min/1.73m2 STEVENSON L FUNCTION: >90MILDLY DECREASED: 60-89MILDY TO MODERATELY DECREASED: 45-59 MODERATELY TO SEVERELY DECREASED: 30-44SEVERELY DECREASED: 15-29RENAL FAILURE: <15 AST 26 U/L 15-37 [facility] ALT 35 U/L 12-78 [facility] ALKALINE PHOSPHATASE 100 U/L 46-116 [facility] pital TOTAL BILIRUBIN 0.3 mg/dL 0.2-1.0 [facility] TOTAL PROTEIN 5.8 g/dl 6.4-8.2 L [facility] ALBUMIN 2.9 gm/dL 3.4-5.0 L [facility] ID Date Data Source [id number] 05/14/2020 05:53:00 AM EDT [facility] Name Value Range Interpretation Code Description Data Rosa rce(s) Supporting Document(s) WHITE BLOOD COUNT 12.6 K/mm3 4.0-10.0 [facility] RED BLOOD COUNT 3.72 M/mm3 4.00-5.50 L [facility] HEMOGLOBIN 11.3 gm/dL 12.0-16.0 L [facility] HEMATOCRIT 33.2 % 36.0-48.8 L [facility] MEAN CELL VOLUME 89.2 fl 80-96 [facility] l MEAN CORPUSCULAR HEMOGLOBIN 30.4 pg 27.0-31.0 [facility] MEAN CORPUSCULAR HGB CONC 34.0 g/dl 32.0-36.0 [facility] RED CELL DISTRIBUTION WIDTH 14.7 % 10.0-14.5 H [facility] PLATELET COUNT 164 K/mm3 172-450 L [facility] MEAN PLATELET VOLUME 9.4 fl 9.0-13.0 [facility] pital GRAN % 94.0 % 50-80.0 H [facility] IG% 1.1 % 0.0-0.2 H [facility] LYMPH % 2.7 % 25.0-50.0 *L [facility] MONO % 2.1 % 2.0-10.0 [facility] EOS % 0.0 % 0-5.0 [facility] BASO % 0.1 % 0.0-2.0 [facility] GRAN # 11.8 K/mm3 2.0-8.00 H [facility] IG# 0.1 K/mm3 0.0-0.2 [facility] LYMPH # 0.3 K/mm3 1.0-5.0 L [facility] MONO # 0.3 K/mm3 0.10-1.20 [facility] EOS # 0.0 K/mm3 0.0-0.5 [facility] BASO # 0.0 K/mm3 0.0-0.2 [facility] ID Date Data Source [id number] 05/13/2020 04:51:00 PM EDT [facility] l Name Value Range Interpretation Code Description Data Rosa rce(s) Supporting Document(s) C REACTIVE PROTEIN 16.1 mg/L 0.0-3.0 H [facility] ADD ON FROM AM LABS05/13/20 1651: CRP previously reported as: mg/L ADD ON FROM AM LABS ID Date Data Source [id number] 05/13/2020 06:23:00 AM EDT [facility] l Name Value Range Interpretation Code Description Data Rosa rce(s) Supporting Document(s) GLUCOSE 169 mg/dL 74-106 H [facility] BLOOD UREA NITROGEN 37 mg/dL 7-18 [facility] CREATININE 1.20 mg/dL 0.6-1.0 H [facility] SODIUM 141 mmol/L 136-145 [facility] POTASSIUM 5.7 mmol/L 3.5-5.1 H [facility] CHLORIDE 105 mmol/L 98-107 [facility] CO2 27 mmol/L 21-32 [facility] CALCIUM 8.8 mg/dL 8.5-10.1 [facility] ANION GAP 9.0 mmol/L 5-12 [facility] GLOMERULAR FILTRATION RATE 44 mL/min [facility] GFR IS CALCULATED IN mL/min/1.73m2 STEVENSON L FUNCTION: >90MILDLY DECREASED: 60-89MILDY TO MODERATELY DECREASED: 45-59 MODERATELY TO SEVERELY DECREASED: 30-44SEVERELY DECREASED: 15-29RENAL FAILURE: <15 AST 25 U/L 15-37 [facility] ALT 33 U/L 12-78 [facility] ALKALINE PHOSPHATASE 93 U/L 46-116 [facility] TOTAL BILIRUBIN 0.2 mg/dL 0.2-1.0 [facility] TOTAL PROTEIN 5.5 g/dl 6.4-8.2 L [facility] ALBUMIN 2.6 gm/dL 3.4-5.0 L [facility] ID Date Data Source [id number] 05/13/2020 05:51:00 AM EDT [facility] Name Value Range Interpretation Code Description Data Rosa rce(s) Supporting Document(s) WHITE BLOOD COUNT 11.6 K/mm3 4.0-10.0 H [facility] jer RED BLOOD COUNT 3.56 M/mm3 4.00-5.50 L [facility] HEMOGLOBIN 11.0 gm/dL 12.0-16.0 L [facility] HEMATOCRIT 32.4 % 36.0-48.8 L [facility] MEAN CELL VOLUME 91.0 fl 80-96 [facility] MEAN CORPUSCULAR HEMOGLOBIN 30.9 pg 27.0-31.0 [facility] MEAN CORPUSCULAR HGB CONC 34.0 g/dl 32.0-36.0 [facility] RED CELL DISTRIBUTION WIDTH 14.9 % 10.0-14.5 H [facility] PLATELET COUNT 159 K/mm3 172-450 L [facility] MEAN PLATELET VOLUME 9.8 fl 9.0-13.0 [facility] pital GRAN % 86.4 % 50-80.0 H [facility] IG% 0.8 % 0.0-0.2 H [facility] LYMPH % 6.4 % 25.0-50.0 L [facility] MONO % 6.1 % 2.0-10.0 [facility] EOS % 0.2 % 0-5.0 [facility] BASO % 0.1 % 0.0-2.0 [facility] GRAN # 10.0 K/mm3 2.0-8.00 H [facility] IG# 0.1 K/mm3 0.0-0.2 [facility] LYMPH # 0.7 K/mm3 1.0-5.0 L [facility] MONO # 0.7 K/mm3 0.10-1.20 [facility] EOS # 0.0 K/mm3 0.0-0.5 [facility] BASO # 0.0 K/mm3 0.0-0.2 [facility] ID Date Data Source [id number] 05/12/2020 11:39:00 AM EDT [facility] l Progress Note GeneralEncounter:The neida ent was seen and examined, chart reviewed, discussed with staff, all questions were answered. SubjectiveGeneral Condition:Bridal Gown Fitter as I walked in the room, the patient stated she wanted to go home. She did frequently tell staff this yesterday as well. She believes that if she had help at home she can take care of herself. [facility], [facility] exacerbation as well [...] 92 O2 Delivery O2 Flow Rate FiO2 05/12 0703 Temp 98.6 Pulse 90 Resp 19 [...] Assessment/PlanAllergiesCoded Allergies:Sulfa (Sulfonamide Antibiotics) (Mild, Itching, rash 09/02/16)bacitracin (Mild, Itching 10/13/15)cortisone (Mild, Itching 10/13/15)red (food color) (Mild, Rash 10/13/15)tramadol (Mild, Itching 10/13/15)fluoxetine (unknown 10/13/15)neomycin (unknown 10/13/15)polymyxin B (unknown 10/13/15) Additional NotesAM lab work: CMP and CBC with differentialThe patient has available Tylenol and Maalox as needed.Continue probiotic while on antibiotics to protect GI and RAILROAD FIRER floraContinue famotidine for GI prophylaxis.Continue heparin for [...] taper as clinically improves. Continue DuoNeb treatments lfueym-cyu-svlsn as well as albuterol nebulizer treatments as [...] Name Value Range Interpretation Code Description Data [facility](s) Supporting Document(s) ID Date Data Source [id number] 05/12/2020 11:07:00 AM EDT [facility] l Name Value Range Interpretation Code Description Data [facility](s) Supporting Document(s) GLUCOSE 154 mg/dL 74-106 H [facility] BLOOD UREA NITROGEN 33 mg/dL 7-18 H [facility] ital CREATININE 1.02 mg/dL 0.6-1.0 H [facility] SODIUM 141 mmol/L 136-145 [facility] POTASSIUM 4.7 mmol/L 3.5-5.1 [facility] CHLORIDE 106 mmol/L 98-107 [facility] CO2 26 mmol/L 21-32 [facility] CALCIUM 8.6 mg/dL 8.5-10.1 [facility] ANION GAP 9.0 mmol/L 5-12 [facility] GLOMERULAR FILTRATION RATE 53 mL/min [facility] GFR IS CALCULATED IN mL/min/1.73m2 STEVENSON L FUNCTION: >90MILDLY DECREASED: 60-89MILDY TO MODERATELY DECREASED: 45-59 MODERATELY TO SEVERELY DECREASED: 30-44SEVERELY DECREASED: 15-29RENAL FAILURE: <15 ID Date Data Source [id number] 05/12/2020 10:32:00 AM EDT [facility] Name Value Range Interpretation Code Description Data Rosa rce(s) Supporting Document(s) WHITE BLOOD COUNT 15.0 K/mm3 4.0-10.0 [facility] RED BLOOD COUNT 3.66 M/mm3 4.00-5.50 L [facility] HEMOGLOBIN 11.0 gm/dL 12.0-16.0 L [facility] HEMATOCRIT 33.1 % 36.0-48.8 L [facility] MEAN CELL VOLUME 90.4 fl 80-96 [facility] MEAN CORPUSCULAR HEMOGLOBIN 30.1 pg 27.0-31.0 [facility] MEAN CORPUSCULAR HGB CONC 33.2 g/dl 32.0-36.0 [facility] RED CELL DISTRIBUTION WIDTH 14.9 % 10.0-14.5 H [facility] PLATELET COUNT 166 K/mm3 172-450 L [facility] MEAN PLATELET VOLUME 9.7 fl 9.0-13.0 [facility] pital GRAN % 93.9 % 50-80.0 H [facility] IG% 0.3 % 0.0-0.2 H [facility] LYMPH % 2.3 % 25.0-50.0 *L [facility] MONO % 3.5 % 2.0-10.0 [facility] EOS % 0.0 % 0-5.0 [facility] BASO % 0.0 % 0.0-2.0 [facility] GRAN # 14.0 K/mm3 2.0-8.00 H [facility] IG# 0.1 K/mm3 0.0-0.2 [facility] LYMPH # 0.3 K/mm3 1.0-5.0 L [facility] MONO # 0.5 K/mm3 0.10-1.20 [facility] EOS # 0.0 K/mm3 0.0-0.5 [facility] BASO # 0.0 K/mm3 0.0-0.2 [facility] ID Date Data Source [id number] 05/11/2020 12:33:00 PM EDT [facility] Progress Note GeneralEncounter:Chart re viewed. Patient [...] pedal edema, peripheral pulses are diminishedNeurologic/Psychiatric alert, general agent II-XII nml as tested, normal mood/affect, no [...] A&PContinue Rocephin and Zithromax. Continue nebulizer treatments kzbijf-xiw-inbhewhu when necessary. Continue O2 and closely monitor [...] rce(s) Supporting Document(s) ID Date Data Source [id number] 05/11/2020 07:07:00 AM EDT [facility] Name Value Range Interpretation Code Description Data Rosa rce(s) Supporting Document(s) TSH 0.951 uIU/mL 0.360-3.740 [facility] ID Date Data Source [id number] 05/11/2020 06:58:00 AM EDT [facility] Name Value Range Interpretation Code Description Data Rosa rce(s) Supporting Document(s) HGBA1C 11.4 % 3.8-5.6 H [facility] Diabetic > or = to 6.5%Prediabetes 5.7-6 .4%Normal <5.7 ESTIMATED AVERAGE GLUCOSE 280.5 mg/dL [facility] ID Date Data Source [id number] [facility]/11[facility]2020 [facility] Name Value Range Interpretation Code Description Data Rosa rce(s) Supporting Document(s) GLUCOSE 113 mg/dL 74-106 H [facility] BLOOD UREA NITROGEN 39 mg/dL 7-18 H [facility] ital CREATININE 1.34 mg/dL 0.6-1.0 H [facility] SODIUM 140 mmol/L 136-145 [facility] POTASSIUM 4.9 mmol/L 3.5-5.1 [facility] CHLORIDE 103 mmol/L 98-107 [facility] CO2 27 mmol/L 21-32 [facility] CALCIUM 8.3 mg/dL 8.5-10.1 L [facility] ANION GAP 10.0 mmol/L 5-12 [facility] GLOMERULAR FILTRATION RATE 39 mL/min [facility] GFR IS CALCULATED IN mL/min/1.73m2 STEVENSON L FUNCTION: >90MILDLY DECREASED: 60-89MILDY TO MODERATELY DECREASED: 45-59 MODERATELY TO SEVERELY DECREASED: 30-44SEVERELY DECREASED: 15-29RENAL FAILURE: <15 ID Date Data Source [id number] 05/11/2020 06:44:00 AM [facility] Name Value Range Interpretation Code Description Data Rosa rce(s) Supporting Document(s) WHITE BLOOD COUNT 9.3 K/mm3 4.0-10.0 [facility] al RED BLOOD COUNT 3.47 M/mm3 4.00-5.50 L [facility] HEMOGLOBIN 10.6 gm/dL 12.0-16.0 L [facility] HEMATOCRIT 31.0 % 36.0-48.8 L [facility] MEAN CELL VOLUME 89.3 fl 80-96 [facility] MEAN CORPUSCULAR HEMOGLOBIN 30.5 pg 27.0-31.0 [facility] MEAN CORPUSCULAR HGB CONC 34.2 g/dl 32.0-36.0 [facility] RED CELL DISTRIBUTION WIDTH 14.5 % 10.0-14.5 [facility] PLATELET COUNT 162 K/mm3 172-450 L [facility] MEAN PLATELET VOLUME 9.8 fl 9.0-13.0 [facility] pital GRAN % 92.6 % 50-80.0 H [facility] IG% 0.4 % 0.0-0.2 H [facility] LYMPH % 3.1 % 25.0-50.0 *L [facility] MONO % 3.8 % 2.0-10.0 [facility] EOS % 0.0 % 0-5.0 [facility] BASO % 0.1 % 0.0-2.0 [facility] GRAN # 8.6 K/mm3 2.0-8.00 H [facility] IG# 0.0 K/mm3 0.0-0.2 [facility] LYMPH # 0.3 K/mm3 1.0-5.0 L [facility] MONO # 0.4 K/mm3 0.10-1.20 [facility] EOS # 0.0 K/mm3 0.0-0.5 [facility] BASO # 0.0 K/mm3 0.0-0.2 [facility] ID Date Data Source [id number] 05/14/2020 04:09:00 PM EDT [facility] Name Value Range Interpretation Code Description Data Rosa rce(s) Supporting Document(s) SPECIMEN SOURCE Urine . [facility] STREPTOCOCCUS PEUMONIAE AG Negative Negative [facility] BODY FLUID CULTURE STERILE Not indicated. . [facility] ORGANISM ID Not indicated. . [facility] PLEASE NOTE: Comment . [facility] [employer] standar ds require aculture to be performed on CSF specimens submitted forbacterial antigen testing. (CAP [id number]) Urine specimenswill not be cultured.Performed at: [address], [place] [id number] Director: Ramu Cota MD, Phone: [phone] ID Date Data Source [id number] 05/14/2020 04:05:00 PM EDT [facility] Name Value Range Interpretation Code Description Data Rosa rce(s) Supporting Document(s) Specimen Source Urine [facility] Streptococcus pneumoniae Ag Negative Negative [facility] Body Fluid Culture, Sterile Not indicated. [facility] Organism ID Not indicated. [facility] Please Note: [facility] [employer] standar ds require a culture to beperformed on CSF specimens submitted for bacterial antigen testing.(CAP [id number]) Urine specimens will not be cultured. ID Date Data Source [id number] 05/10/2020 10:19:00 PM EDT [facility] l Name Value Range Interpretation Code Description Data Rosa rce(s) Supporting Document(s) LEGIONELLA AG URINE-ANGELES SENT TO [facility] ID Date Data Source [id number] 05/10/2020 10:09:00 PM EDT [facility] l Name Value Range Interpretation Code Description Data Rosa rce(s) Supporting Document(s) GLUCOSE 522 mg/dL 74-106 *H [facility] ID Date Data Source [id number] 05/11/2020 04:14:00 PM EDT [facility] jer Is the patient hospitalized ([facility] or [facility])? Y Name Value Range Interpretation Code Description Data Rosa rce(s) Supporting Document(s) L PNEUMO SERO 1 NEGATIVE NEGATIVE N [facility] MANUAL ENTRY RECHECKED Screen for [...] (REFERENCE RANGE= NEGATIVE) ID Date Data Source [id number] 05/10/2020 05:30:00 PM EDT [facility] Name Value Range Interpretation Code Description Data Rosa rce(s) Supporting Document(s) COVID-19 NEGATIVE [facility] This lab was ordered by [facility] and reported by [facility]. ID Date Data Source [id number] 05/10/2020 05:56:00 PM EDT [facility] TSYSORDER [id number] Name Value Range Interpretation Code Description Data Rosa rce(s) Supporting Document(s) COVID-19 NEGATIVE NEGATIVE [facility] Negative results should be treated as [...] are for the indentification of SARS-CoV-2 RNA. PloFOIT-UzX-7 RNA is generally detectable in respiratorysamples during the actue phase of infection. ID Date Data Source [id number] 05/10/2020 04:22:00 PM EDT [facility] l TSYSORDER [id number] Name Value Range Interpretation Code Description Data Rosa rce(s) Supporting Document(s) TROPONIN I 0.031 ng/mL 0.000-0.056 [facility] ID Date Data Source [id number] 05/10/2020 02:11:00 PM EDT [facility] DATE OF EXAMINATION: 05/10/2020 13:07 EDT CHEST [...] rce(s) Supporting Document(s) ID Date Data Source [id number] 05/10/2020 01:40:00 PM EDT [facility] TSYS[facility] [id number] Name Value Range Interpretation Code Description Data Rosa rce(s) Supporting Document(s) URINE RBC 0-2 /hpf 0-3 [facility] URINE WBC 0-2 /hpf 0-5 H [facility] URINE EPITHELIAL CELLS 1+ /hpf [facility] URINE HYALINE CAST 0-2 /LPF 0 [facility] ID Date Data Source [id number] 05/10/2020 01:32:00 PM EDT [facility] ital TSYSORDER [id number] Name Value Range Interpretation Code Description Data Rosa rce(s) Supporting Document(s) URINE COLOR. [facility] URINE APPEARANCE CLEAR [facility] GLUCOSE (UA) >=1000 mg/dL NEGATIVE H [facility] spital URINE BILIRUBIN NEGATIVE NEGATIVE [facility] URINE KETONE NEGATIVE mg/dL NEGATIVE [facility] SPECIFIC GRAVITY,URINE 1.025 1.005-1.030 [facility] URINE BLOOD NEGATIVE NEGATIVE [facility] PH,URINE 5.5 5.0-9.0 [facility] URINE PROTEIN 4+(>=300) mg/dL NEGATIVE H [facility] URINE UROBILINOGEN NORMAL(0.2-1) mg/dL 0-1 [facility] URINE NITRATE NEGATIVE NEGATIVE [facility] URINE LEUKOCYTE ESTERASE NEGATIVE NEGATIVE [facility] ID Date Data Source [id number] 05/16/2020 07:10:00 AM EDT [facility] Name Value Range Interpretation Code Description Data Rosa rce(s) Supporting Document(s) [facility] ID Date Data Source [id number] 05/10/2020 01:21:00 PM EDT [facility] [id number] Name Value Range Interpretation Code Description Data Rosa rce(s) Supporting Document(s) LACTIC ACID 0.9 mmol/L 0.4-2.0 [facility] ID Date Data Source [id number] 05/10/2020 12:51:00 PM EDT [facility] l TSYSORDER [id number] Name Value Range Interpretation Code Description Data Rosa rce(s) Supporting Document(s) PH 7.35 7.31-7.41 [facility] VENOUS PCO2 53.1 mmHg 41-51 H [facility] VENOUS PO2 33 mmHg 35-42 L [facility] VENOUS BLODD O2 SATURATION 55.4 % 68-77 L [facility] VENOUS BLOOD HCO3 28.2 meq/L 24.0-25.0 H [facility] VENOUS BASE EXCESS 1.9 -3.0-3.0 [facility] BLOOD CO2 29.9 mmol/L 23.0-32.0 [facility] ID Date Data Source [id number] 05/16/2020 07:10:00 AM EDT [facility] Name Value Range Interpretation Code Description Data Rosa rce(s) Supporting Document(s) [facility] ID Date Data Source [id number] 05/10/2020 12:59:00 PM EDT [facility] l TSYSORDER [id number] Name Value Range Interpretation Code Description Data Rosa rce(s) Supporting Document(s) PARTIAL THROMBOPLASTIN TIME 23.6 SECONDS 21.2-27.3 [facility] ID Date Data Source [id number] 05/10/2020 12:54:00 PM EDT [facility] l TSYSORDER [id number] Name Value Range Interpretation Code Description Data Rosa rce(s) Supporting Document(s) PROTHROMBIN TIME (PATIENT) 9.8 SECONDS 9.1-11.6 [facility] INR 0.94 0.87-1.06 [facility] ID Date Data Source [id number] 05/10/2020 12:50:00 PM EDT [facility] l TSYSORDER [id number] Name Value Range Interpretation Code Description Data Rosa rce(s) Supporting Document(s) TROPONIN I 0.031 ng/mL 0.000-0.056 [facility] ID Date Data Source [id number] 05/10/2020 12:50:00 PM EDT [facility] [id number] Name Value Range Interpretation Code Description Data Rosa rce(s) Supporting Document(s) MAGNESIUM 2.2 mg/dL 1.8-2.4 [facility] ID Date Data Source [id number] 05/10/2020 12:31:00 PM EDT [facility] l TSYSORDER [id number] Name Value Range Interpretation Code Description Data Rosa rce(s) Supporting Document(s) GLUCOSE 313 mg/dL 74-106 H [facility] BLOOD UREA NITROGEN 33 mg/dL 7-18 H [facility] ital CREATININE 1.31 mg/dL 0.6-1.0 H [facility] SODIUM 131 mmol/L 136-145 L [facility] POTASSIUM 4.6 mmol/L 3.5-5.1 [facility] CHLORIDE 96 mmol/L 98-107 L [facility] CO2 26 mmol/L 21-32 [facility] CALCIUM 9.6 mg/dL 8.5-10.1 [facility] ANION GAP 9.0 mmol/L 5-12 [facility] GLOMERULAR FILTRATION RATE 40 mL/min [facility] GFR IS CALCULATED IN mL/min/1.73m2 [facility] L FUNCTION: >90MILDLY DECREASED: 60-89MILDY TO MODERATELY DECREASED: 45-59 MODERATELY TO SEVERELY DECREASED: 30-44SEVERELY DECREASED: 15-29RENAL FAILURE: <15 AST 19 U/L 15-37 [facility] ALT 32 U/L 12-78 [facility] ALKALINE PHOSPHATASE 97 U/L 46-116 [facility] pital TOTAL BILIRUBIN 0.6 mg/dL 0.2-1.0 [facility] TOTAL PROTEIN 7.2 g/dl 6.4-8.2 [facility] ALBUMIN 3.0 gm/dL 3.4-5.0 L [facility] ID Date Data Source [id number] 05/10/2020 11:59:00 AM EDT [facility] l TSYSORDER [id number] Name Value Range Interpretation Code Description Data Rosa rce(s) Supporting Document(s) WHITE BLOOD COUNT 18.2 K/mm3 4.0-10.0 H [facility] RED BLOOD COUNT 4.32 M/mm3 4.00-5.50 [facility] l HEMOGLOBIN 13.0 gm/dL 12.0-16.0 [facility] HEMATOCRIT 38.4 % 36.0-48.8 [facility] MEAN CELL VOLUME 88.9 fl 80-96 [facility] MEAN CORPUSCULAR HEMOGLOBIN 30.1 pg 27.0-31.0 [facility] MEAN CORPUSCULAR HGB CONC 33.9 g/dl 32.0-36.0 [facility] RED CELL DISTRIBUTION WIDTH 14.8 % 10.0-14.5 H [facility] PLATELET COUNT 182 K/mm3 172-450 [facility] MEAN PLATELET VOLUME 9.6 fl 9.0-13.0 [facility] pital GRAN % 91.7 % 50-80.0 H [facility] IG% 0.3 % 0.0-0.2 H [facility] LYMPH % 2.5 % 25.0-50.0 *L [facility] MONO % 4.3 % 2.0-10.0 [facility] EOS % 1.0 % 0-5.0 [facility] BASO % 0.2 % 0.0-2.0 [facility] GRAN # 16.7 K/mm3 2.0-8.00 *H [facility] IG# 0.1 K/mm3 0.0-0.2 [facility] LYMPH # 0.5 K/mm3 1.0-5.0 L [facility] MONO # 0.8 K/mm3 0.10-1.20 [facility] EOS # 0.2 K/mm3 0.0-0.5 [facility] BASO # 0.0 K/mm3 0.0-0.2 [facility] ID Date Data Source [id number] 02/19/2020 09:38:00 PM EST [facility] Name Value Range Interpretation Code Description Data Rosa rce(s) Supporting Document(s) SARS-CoV-2 (COVID 19) NEGATIVE - SARS-CoV-2 (COVID19) [facility] This lab was ordered by [facility] a nd reported by [facility]. ID Date Data Source [id number] 01/04/2020 02:54:00 PM EST [facility] ([facility], ) Name Value Range Interpretation Code Description Data Rosa rce(s) Supporting Document(s) Gram Stain Laboratory test result Normal (applies to non-n umeric results) [facility] ([facility]) QUALITY: GOOD MODERATE EPITHELIAL CELLS MODERATE WBCS MANY GRAM POSITIVE COCCI IN PAIRS, CHAINS AND CLUSTERS MODERATE GRAM POSITIVE RODS MODERATE GRAM NEGATIVE RODS Sputum Culture Laboratory test result Normal (applies to non-numeric results) [facility] ([facility]) FULL REPORT IN LAB NOTES ([facility] NORMAL KELLI PRESENT ORGANISM 1: YEAST LIKE ORGANISM QUANTITY OF GROWTH FEW ORGANISM 1: YEAST LIKE ORGANISM ID Date Data Source [id number] 01/03/2020 03:12:00 PM EST [facility] ([facility] Name Value Range Interpretation Code Description Data [facility] Supporting Document(s) White Blood Count 16.2 10 [...] Platelet Count, Automated 313 10 150-450 [facility] ([facility] Neutrophils % 89.9 % 36.0-66.0 [facility] ([facility] Eos % 0.3 % 0.0-3.0 [facility] ([facility] [place] % 3.0 % 0.0-5.0 [facility] ([facility] Baso % 0.6 % 0.0-1.0 [facility] ([facility] Immature Granulocyte % 0.5 % 0-3.0 [facility] ([facility] Neutrophils # 14.6 10 1.5-8.5 [facility] ([facility] Nucleated Red Blood Cell % 0.0 % 0-0 [facility] ([facility] [place] # 0.5 10 0.0-0.8 [facility] ([facility] Lymph # 0.9 10 1.5-5.0 [facility] ([facility] Eos # 0.1 10 0.0-0.5 [facility] ([facility] Baso # 0.1 10 0.0-0.2 [facility] ([facility] ID Date Data Source [id number] 01/03/2020 03:12:00 PM EST [facility] ([facility] Name Value Range Interpretation Code Description Data Rosa rce(s) Supporting Document(s) Glucose, Fasting 335 mg/dL 70-100 [facility] ([facility] Blood Urea Nitrogen 21 mg/dL 7-18 [facility] ([facility] Creatinine For GFR 1.42 mg/dL 0.55-1.30 [facility] ([facility] Glomerular Filtration Rate 38.5 [facility] ([facility] <content>Units are mL/min/1.73 m2</content>
<content></content>
<content>Chronic Kidney Disease Staging per NKF:</content>
<content></content>
<content>Stage I & II GFR >=60 Normal to Mildly Decreased</content>
<content>Stage III GFR 30- 59 Moderately Decreased</content>
<content>Stage IV GFR 15-29 Severely Decreased</content>
<content>Stage V GFR <15 Very Little GFR Left</content>
<content>ESRD GFR <15 on CARDIOLOGY CLINICAL CONSULTANT</content>
<content></content> Carbon Dioxide Level 25 meq/L 21-32 [...] [facility] ID Date Data Source [id number] 01/03/2020 03:12:00 PM EST [facility] ([facility] Name Value Range Interpretation Code Description Data Rosa rce(s) Supporting Document(s) Thyrotropin [Units/volume] in Serum or Plasma 1.340 uIU/ML 0.358-3.74 0 [facility] ([facility] Thyroxine (T4) free [Mass/volume] in Serum or Plasma 1.58 ng/dL 0.76- 1.46 [facility] ([facility] ID Date Data Source [id number] 01/03/2020 03:12:00 PM EST [facility] ([facility] Name Value Range Interpretation Code Description Data Rosa rce(s) Supporting Document(s) Hemoglobin A1c 8.7 % [facility] ([facility] <content>REFERENCE RANGES:</content><br/ ><content></content>
<content><=5.6% NORMAL</content>
<content>5.7-6.4% SUGGESTS IMPAIRED GLUCOSE METABOLISM/PREDIABETIC</content>
<content>>= 6.5% ABNORMAL</content>
<content></content> Estimated Average Glucose 203 mg/dL 60-110 [facility] ([facility] ID Date Data Source [id number] 11/09/2019 03:24:00 PM EDT [facility] ([facility]) Name Value Range Interpretation Code Description Data Rosa rce(s) Supporting Document(s) Glucose, Fasting 124 mg/dL 70-100 Above high normal [facility] ([facility]) Creatinine For GFR 1.04 mg/dL 0.55-1.30 Normal (applies to non -numeric results) [facility] ([facility]) Blood Urea Nitrogen 19 mg/dL 7-18 Above high normal [facility] ([facility]) Potassium Serum 5.4 meq/L 3.5-5.1 Above high normal [facility] ([facility]) Sodium Level 138 meq/L 136-145 Normal (applies to non-numeric res ults) [facility] ([facility]) Glomerular Filtration Rate 55.1 Normal (applies to n on-numeric results) [facility] <content>Units are mL/min/1.73 m2</content>
<content></content>
<content>Chronic Kidney Disease Staging per NKF:</content>
<content></content>
<content>Stage I & II GFR >=60 Normal to Mildly Decreased</content>
<content>Stage III GFR 30- 59 Moderately Decreased</content>
<content>Stage IV GFR 15-29 Severely Decreased</content>
<content>Stage V GFR <15 Very Little GFR Left</content>
<content>ESRD GFR <15 on CARDIOLOGY CLINICAL CONSULTANT</content>
<content></content> Chloride Level 107 meq/L 98-107 Normal (applies to non-numeric r esults) [facility] ([facility]) Anion Gap 7 meq/L 8-16 [facility] low [facility] Carbon Dioxide Level 24 meq/L 21-32 Normal (applies to non-num jd results) [facility] ([facility]) Calcium Level 9.8 mg/dL 8.8-10.2 Normal (applies to non-numeric re sults) [facility] ([facility]) ID Date Data Source [id number] 11/09/2019 03:24:00 PM EDT [facility] Name Value Range Interpretation Code Description Data Rosa rce(s) Supporting Document(s) White Blood Count 13.6 10 4.0-10.0 Above high normal [facility] ([facility]) Hematocrit 44.8 % 36.0-47.0 Normal (applies to non-numeric resul ts) [facility]) Red Blood Count 4.83 10 4.00-5.40 Normal (applies to non-numeric results) [facility] ([facility]) Hemoglobin 14.4 g/dL 12.0-15.5 Normal (applies to non-numeric resul ts) [facility]) Mean Corpuscular Hemoglobin 29.8 pg 27.0-33.0 Norm al (applies to non-numeric results) [facility] ([facility]) Mean Corpuscular HGB Conc 32.1 g/dL 32.0-36.5 Normal (applies to non-numeric results) [facility] ([facility]) Mean Corpuscular Volume 92.8 fl 80.0-96.0 Normal ( applies to non-numeric results) [facility] ([facility]) Red Cell Distribution Width 15.0 % 11.5-14.5 Above high normal [facility] ([facility]) Nucleated Red Blood Cell % 0.0 % 0-0 Normal (applies to n on-numeric results) [facility] ([facility]) Platelet Count, Automated 214 10 150-450 Normal (applies to non-numeric results) [facility]) Procedure Social History Code Duration Value Status Description Data Source(s ) Smoking 11/24/2020 12:00:00 AM EDT Current Smoker completed Curre nt Smoker eCW1 (Formerly [facility]) Smoking 11/24/2020 12:00:00 AM EDT Current Smoker completed Curre nt Smoker eCW1 (Formerly [facility]) Smoking 08/18/2020 12:00:00 AM EDT Current Smoker completed Curre nt Smoker eCW1 (Formerly [facility]) Smoking 08/18/2020 12:00:00 AM EDT Current Smoker completed Curre nt Smoker eCW1 ([facility]ly [facility]) Smoking 08/18/2020 12:00:00 AM EDT Current Smoker completed Curre nt Smoker eCW1 ([facility]ly [facility]) Smoking 06/30/2020 12:00:00 AM EDT Current Smoker completed Curre nt Smoker eCW1 ([facility]ly [facility]) Smoking 06/30/2020 12:00:00 AM EDT Current Smoker completed Curre nt Smoker eCW1 ([facility]ly [facility]) Smoking 06/30/2020 12:00:00 AM EDT Current Smoker completed Curre nt Smoker eCW1 ([facility]ly [facility]) Smoking 06/30/2020 12:00:00 AM EDT Current Smoker completed Curre nt Smoker eCW1 ([facility]ly [facility]) Smoking 06/30/2020 12:00:00 AM EDT Current Smoker completed Curre nt Smoker eCW1 ([facility]ly [facility]) Smoking 06/30/2020 12:00:00 AM EDT Current Smoker completed Curre nt Smoker eCW1 ([facility]ly [facility]) Smoking 06/30/2020 12:00:00 AM EDT Current Smoker completed Curre nt Smoker eCW1 ([facility]ly [facility]) Smoking 06/30/2020 12:00:00 AM EDT Current Smoker completed Curre nt Smoker eCW1 ([facility]ly [facility]) Smoking 06/30/2020 12:00:00 AM EDT Current Smoker completed Curre nt Smoker eCW1 ([facility]ly [facility]) Smoking 06/30/2020 12:00:00 AM EDT Current Smoker completed Curre nt Smoker eCW1 ([facility]ly [facility]) Smoking 06/30/2020 12:00:00 AM EDT Current Smoker completed Curre nt Smoker eCW1 ([facility]ly [facility]) Smoking 06/30/2020 12:00:00 AM EDT Current Smoker completed Curre nt Smoker eCW1 ([facility]ly [facility]) Smoking 06/30/2020 12:00:00 AM EDT Current Smoker completed Curre nt Smoker eCW1 ([facility]ly [facility]) Smoking 06/30/2020 12:00:00 AM EDT Current Smoker completed Curre nt Smoker eCW1 ([facility]ly [facility]) Smoking 06/30/2020 12:00:00 AM EDT Current Smoker completed Curre nt Smoker eCW1 ([facility]ly [facility]) Smoking 06/25/2020 12:00:00 AM EDT Current Smoker completed Curre nt Smoker eCW1 ([facility]ly [facility]) Vital Signs ID Date Data Source UNK Name Value Range Interpretation Code Description Data Source(s) Diastolic blood pressure 60 mm[Hg] 60 mm[Hg] eCW1 ([facility]) Body weight 113 [lb_av] 113 [lb_av] eCW1 ([facility]) Body height [in_i] eCW1 ([facility]) Body mass index (BMI) [Ratio] 20.01 kg/m2 20.01 kg/m2 eCW1 ([facility]) Heart rate 96 /min 96 /min eCW1 ([facility]) Respiratory rate 18 /min 18 /min eCW1 ([facility]) Body temperature 97.2 [degF] 97.2 [degF] eCW1 ( [facility]) Systolic blood pressure 128 mm[Hg] 128 mm[Hg] e CW1 ([facility]) Systolic blood pressure 130 mm[Hg] 130 mm[Hg] M EDENT ([facility], ) Diastolic blood pressure 80 mm[Hg] 80 mm[Hg] [facility] ([facility], ) Heart rate 102 /min 102 /min [facility] ([facility], ) Oxygen saturation in Arterial blood by Pulse oximetry 94 % 94 % [facility] Body height 61.75 [in_i] 61.75 [in_i] [facility], ) 5'1.75" Body weight 116.00 [lb_av] 116.00 [lb_av] MEDEN T ([facility], ) Body mass index (BMI) [Ratio] 21.4 kg/m2 21.4 k g/m2 [facility] ([facility]) [place] body weight 105 [lb_av] 105 [lb_av] MEDEN T ([facility]) Body weight 52.618 kg 52.618 kg [facility] ([facility]) Body surface area Derived from formula 1.51 m2 1.51 m2 [facility] ([facility]) Body mass index (BMI) [Ratio] 20.7 kg/m2 20.7 k g/m2 [facility] ([facility] Systolic blood pressure 157 mm[Hg] 157 mm[Hg] M EDENT ([facility] Diastolic blood pressure 69 mm[Hg] 69 mm[Hg] [facility] ([facility] Systolic blood pressure 137 mm[Hg] 137 mm[Hg] [facility] Diastolic blood pressure [...] 98 % [facility] ([facility] [place] body weight 115 [lb_av] 115 [lb_av] MEDEN [...] [lb_av] MEDEN T ([facility] [place] body weight 115 [lb_av] 115 [lb_av] MED[facility] T ([facility] Oxygen saturation in Arterial blood by Pulse oximetry 95 % 95 % [facility] ([facility] Body mass index (BMI) [Ratio] 21.3 kg/m2 21.3 k g/m2 [facility] ([facility] Body height 61.75 [in_i] 61.75 [in_i] [facility] ([facility]) 5'1.75" Body weight 122.00 [lb_av] 122.00 [lb_av] MEDEN T ([facility]) Body mass index (BMI) [Ratio] 22.5 kg/m2 22.5 k g/m2 [facility] ([facility]) [place] body weight 105 [lb_av] 105 [lb_av] MEDEN T ([facility]) Body weight 55.339 kg 55.339 kg [facility] ([facility]) Body surface area Derived from formula 1.54 m2 1.54 m2 [facility] ([facility]) Systolic blood pressure 110 mm[Hg] 110 mm[facility]Hg] [facility] Diastolic blood pressure 58 mm[Hg] 58 mm[Hg] [facility] ([facility]) Heart rate 90 /min 90 /min [facility] ([facility]) Oxygen saturation in Arterial blood by Pulse oximetry 91 % 91 % [facility] ([facility]) Body temperature 97.5 [degF] 97.5 [degF] [facility] ([facility]) Systolic blood pressure 120 mm[Hg] 120 mm[Hg] [facility] ([facility]) Diastolic blood pressure 60 mm[Hg] 60 mm[Hg] [facility] ([facility]) Body height 61.75 [in_i] 61.75 [in_i] [facility] ([facility]) 5'1.75" Body weight 121.38 [lb_av] 121.38 [lb_av] MEDEN T ([facility]) Body mass index (BMI) [Ratio] 22.4 kg/m2 22.4 k g/m2 [facility] ([facility]) [place] body weight 105 [lb_av] 105 [lb_av] MEDEN T ([facility]) Body weight 55.056 kg 55.056 kg [facility] ([facility]) Systolic blood pressure 160 mm[Hg] 160 mm[Hg] [facility] Diastolic blood pressure 70 mm[Hg] 70 mm[Hg] [facility] ([facility]) Body height 61.75 [in_i] 61.75 [in_i] [facility] 5'1.75" Body weight 118.12 [lb_av] 118.12 [lb_av] MED[facility] T ([facility]) Body mass index (BMI) [Ratio] 21.8 kg/m2 21.8 k g/m2 [facility] ([facility]) [place] body weight 105 [lb_av] 105 [lb_av] MEDEN T ([facility]) Body weight 53.581 kg 53.581 kg [facility] ([facility]) Systolic blood pressure 140 mm[Hg] 140 mm[Hg] [...] 98 % [facility] ([facility] [place] body weight 115 [lb_av] 115 [lb_av] MED[facility] T ([facility] Body mass index (BMI) [Ratio] 20.3 kg/m2 20.3 k g/m2 [facility] ([facility] ID Date Data Source [id number] 06/15/2020 02:16:00 PM EDT [facility] Name Value Range Interpretation Code Description Data Source(s) WEIGHT 54 kilos 54 kilos [facility] HEIGHT 170.18 centimeters 170.[address] [facility] WEIGHT 54.1 kilos 54.1 kilos [facility] HEIGHT 170.18 centimeters 170.18 centimeter [facility] WEIGHT 54.09 kilos 54.09 kilos [facility] HEIGHT 170.18 centimeters 170.18 centimeter [facility] ID Date Data Source [id number] 05/18/2020 04:36:50 PM [facility] Name Value Range Interpretation Code Description Data Source(s) TRANSFER FROM [facility] ID Date Data Source [id number] 05/24/2020 12:50:00 PM EDT [facility] Name Value Range Interpretation Code Description Data Source(s) WEIGHT 55.9 kilos 55.9 [facility] HEIGHT 160.02 centimeters 160.02 centimeter [facility] WEIGHT 55.8 kilos 55.8 [facility] HEIGHT 160.02 centimeters 160.02 centimeter [facility] ID Date Data Source [id number] 09/21/2020 07:47:00 AM EDT [facility] Name Value Range Interpretation Code Description Data Source(s) WEIGHT 56 kilos 56 [facility] HEIGHT 160.02 centimeters 160.02 centimeter [facility] WEIGHT 55.8 kilos 55.8 [facility] HEIGHT 160.02 centimeters 160.02 centimeter [facility] WEIGHT 51 kilos 51 [facility] HEIGHT 160.02 centimeters 160.02 centimeter [facility] WEIGHT 51.3 kilos 51.3 [facility] HEIGHT 152.4 centimeters 152.4 centimeters [facility] ID Date Data Source [id number] 05/16/2020 08:13:00 PM EDT [facility] Name Value Range Interpretation Code Description Data Source(s) WEIGHT 52 kilos 52 [facility] ID Date Data Source [id number] 05/16/2020 08:13:00 PM EDT [facility] Name Value Range Interpretation Code Description Data Source(s) WEIGHT 56.059094 kilos [facility] HEIGHT 160.02 centimeters 160.02 centimeter [facility] ID Date Data Source [id number] 05/16/2020 08:13:00 PM EDT [facility] Name Value Range Interpretation Code Description Data Source(s) WEIGHT 54 kilos 54 [facility] HEIGHT 160.02 centimeters 160.02 centimeter [facility] Patient Treatment Plan of Care Planned Activity Planned Date Details Description Data Source (s) Nicotine 7 MG/24HR 07/28/2020 12:00:00 AM EDT eCW1 (Formerly [facility]) Nicotine 7 MG/24HR 07/28/2020 12:00:00 AM EDT eCW1 ([facility]) Nicotine 7 MG/24HR 07/28/2020 12:00:00 AM EDT eCW1 ([facility]) Nicotine 7 MG/24HR 07/28/2020 12:00:00 AM EDT eCW1 ([facility]) Nicotine 7 MG/24HR 07/28/2020 12:00:00 AM EDT eCW1 ([facility]) Optifoam 4"X4" 07/18/2020 12:00:00 AM EDT eCW1 ([facility]) Optifoam 4"X4" 07/18/2020 12:00:00 AM EDT eCW1 ([facility]) Optifoam 4"X4" 07/18/2020 12:00:00 AM EDT eCW1 ([facility]) Optifoam 4"X4" 07/18/2020 12:00:00 AM EDT eCW1 ([facility]) Optifoam 4"X4" 07/18/2020 12:00:00 AM EDT eCW1 ([facility]) Optifoam 4"X4" 07/18/2020 12:00:00 AM EDT eCW1 ([facility]) Optifoam 4"X4" 07/18/2020 12:00:00 AM EDT eCW1 ([facility]) Acetaminophen 325 MG / Hydrocodone Bitartrate 5 MG Ora l Tablet 06/23/2020 12:00:00 AM EDT eCW1 ([facility]) gabapentin 100 MG Oral Capsule 06/23/2020 12:00:00 AM EDT eCW1 ([facility]) Metformin hydrochloride 500 MG Oral Tablet 06/23/2020 12:00:00 AM E DT eCW1 ([facility]) HM Lidocaine Patch 4 % 06/23/2020 12:00:00 AM EDT eCW1 ([facility]) Alendronic acid 70 MG Oral Tablet 06/23/2020 12:00:00 AM EDT eCW1 ([facility]) Acetaminophen 325 MG / Hydrocodone Bitartrate 5 MG Ora l Tablet 06/23/2020 12:00:00 AM EDT eCW1 ([facility]) gabapentin 100 MG Oral Capsule 06/23/2020 12:00:00 AM EDT eCW1 ([facility]) Metformin hydrochloride 500 MG Oral Tablet 06/23/2020 12:00:00 AM E DT eCW1 ([facility]) HM Lidocaine Patch 4 % 06/23/2020 12:00:00 AM EDT eCW1 ([facility]) Alendronic acid 70 MG Oral Tablet 06/23/2020 12:00:00 AM EDT eCW1 ([facility]) Acetaminophen 325 MG / Hydrocodone Bitartrate 5 MG Ora l Tablet 06/23/2020 12:00:00 AM EDT eCW1 ([facility]) gabapentin 100 MG Oral Capsule 06/23/2020 12:00:00 AM EDT eCW1 ([facility]) Metformin hydrochloride 500 MG Oral Tablet 06/23/2020 12:00:00 AM E DT eCW1 ([facility]) HM Lidocaine Patch 4 % 06/23/2020 12:00:00 AM EDT eCW1 ([facility]) Alendronic acid 70 MG Oral Tablet 06/23/2020 12:00:00 AM EDT eCW1 ([facility]) Acetaminophen 325 MG / Hydrocodone Bitartrate 5 MG Ora l Tablet 06/23/2020 12:00:00 AM EDT eCW1 ([facility]) gabapentin 100 MG Oral Capsule 06/23/2020 12:00:00 AM EDT eCW1 ([facility]) Metformin hydrochloride 500 MG Oral Tablet 06/23/2020 12:00:00 AM E DT eCW1 ([facility]) HM Lidocaine Patch 4 % 06/23/2020 12:00:00 AM EDT eCW1 ([facility]) Alendronic acid 70 MG Oral Tablet 06/23/2020 12:00:00 AM EDT eCW1 ([facility]) Metformin hydrochloride 500 MG Oral Tablet 06/23/2020 12:00:00 AM E DT eCW1 ([facility]) Acetaminophen 325 MG / Hydrocodone Bitartrate 5 MG Ora l Tablet 06/23/2020 12:00:00 AM EDT eCW1 ([facility]) gabapentin 100 MG Oral Capsule 06/23/2020 12:00:00 AM EDT eCW1 ([facility]) HM Lidocaine Patch 4 % 06/23/2020 12:00:00 AM EDT eCW1 ([facility]) Alendronic acid 70 MG Oral Tablet 06/23/2020 12:00:00 AM EDT eCW1 ([facility]) Metformin hydrochloride 500 MG Oral Tablet 06/23/2020 12:00:00 AM E DT eCW1 ([facility]) Acetaminophen 325 MG / Hydrocodone Bitartrate 5 MG Ora l Tablet 06/23/2020 12:00:00 AM EDT eCW1 ([facility]) gabapentin 100 MG Oral Capsule 06/23/2020 12:00:00 AM EDT eCW1 ([facility]) HM Lidocaine Patch 4 % 06/23/2020 12:00:00 AM EDT eCW1 ([facility]) Alendronic acid 70 MG Oral Tablet 06/23/2020 12:00:00 AM EDT eCW1 ([facility]) Metformin hydrochloride 500 MG Oral Tablet 06/23/2020 12:00:00 AM E DT eCW1 ([facility]) Acetaminophen 325 MG / Hydrocodone Bitartrate 5 MG Ora l Tablet 06/23/2020 12:00:00 AM EDT eCW1 ([facility]) gabapentin 100 MG Oral Capsule 06/23/2020 12:00:00 AM EDT eCW1 ([facility]) HM Lidocaine Patch 4 % 06/23/2020 12:00:00 AM EDT eCW1 ([facility]) Acetaminophen 325 MG / Hydrocodone Bitartrate 5 MG Ora l Tablet 06/23/2020 12:00:00 AM EDT eCW1 ([facility]) gabapentin 100 MG Oral Capsule 06/23/2020 12:00:00 AM EDT eCW1 ([facility]) Metformin hydrochloride 500 MG Oral Tablet 06/23/2020 12:00:00 AM E DT eCW1 ([facility]) HM Lidocaine Patch 4 % 06/23/2020 12:00:00 AM EDT eCW1 ([facility]) Alendronic acid 70 MG Oral Tablet 06/23/2020 12:00:00 AM EDT eCW1 ([facility]) Alendronic acid 70 MG Oral Tablet 06/23/2020 12:00:00 AM EDT eCW1 ([facility]) Metformin hydrochloride 500 MG Oral Tablet 06/23/2020 12:00:00 AM E DT eCW1 ([facility]) Acetaminophen 325 MG / Hydrocodone Bitartrate 5 MG Ora l Tablet 06/23/2020 12:00:00 AM EDT eCW1 ([facility]) gabapentin 100 MG Oral Capsule 06/23/2020 12:00:00 AM EDT eCW1 ([facility]) HM Lidocaine Patch 4 % 06/23/2020 12:00:00 AM EDT eCW1 ([facility]) Alendronic acid 70 MG Oral Tablet 06/23/2020 12:00:00 AM EDT eCW1 ([facility]) Alendronic acid 70 MG Oral Tablet 06/23/2020 12:00:00 AM EDT eCW1 ([facility]) Metformin hydrochloride 500 MG Oral Tablet 06/23/2020 12:00:00 AM E DT eCW1 ([facility]) Acetaminophen 325 MG / Hydrocodone Bitartrate 5 MG Ora l Tablet 06/23/2020 12:00:00 AM EDT eCW1 ([facility]) gabapentin 100 MG Oral Capsule 06/23/2020 12:00:00 AM EDT eCW1 ([facility]) HM Lidocaine Patch 4 % 06/23/2020 12:00:00 AM EDT eCW1 ([facility]) Alendronic acid 70 MG Oral Tablet 06/23/2020 12:00:00 AM EDT eCW1 ([facility]) Metformin hydrochloride 500 MG Oral Tablet 06/23/2020 12:00:00 AM E DT eCW1 ([facility]) Acetaminophen 325 MG / Hydrocodone Bitartrate 5 MG Ora l Tablet 06/23/2020 12:00:00 AM EDT eCW1 ([facility]) gabapentin 100 MG Oral Capsule 06/23/2020 12:00:00 AM EDT eCW1 ([facility]) HM Lidocaine Patch 4 % 06/23/2020 12:00:00 AM EDT eCW1 ([facility]) Alendronic acid 70 MG Oral Tablet 06/23/2020 12:00:00 AM EDT eCW1 ([facility]) Acetaminophen 325 MG / Hydrocodone Bitartrate 5 MG Ora l Tablet 06/23/2020 12:00:00 AM EDT eCW1 ([facility]) HM Lidocaine Patch 4 % 06/23/2020 12:00:00 AM EDT eCW1 ([facility]) gabapentin 100 MG Oral Capsule 06/23/2020 12:00:00 AM EDT eCW1 ([facility]) Metformin hydrochloride 500 MG Oral Tablet 06/23/2020 12:00:00 AM E DT eCW1 ([facility]) Alendronic acid 70 MG Oral Tablet 06/23/2020 12:00:00 AM EDT eCW1 ([facility]) Metformin hydrochloride 500 MG Oral Tablet 06/23/2020 12:00:00 AM E DT eCW1 ([facility]) Acetaminophen 325 MG / Hydrocodone Bitartrate 5 MG Ora l Tablet 06/23/2020 12:00:00 AM EDT eCW1 ([facility]) gabapentin 100 MG Oral Capsule 06/23/2020 12:00:00 AM EDT eCW1 ([facility]) HM Lidocaine Patch 4 % 06/23/2020 12:00:00 AM EDT eCW1 ([facility]) Alendronic acid 70 MG Oral Tablet 06/23/2020 12:00:00 AM EDT eCW1 ([facility]) Metformin hydrochloride 500 MG Oral Tablet 06/23/2020 12:00:00 AM E DT eCW1 ([facility]) Acetaminophen 325 MG / Hydrocodone Bitartrate 5 MG Ora l Tablet 06/23/2020 12:00:00 AM EDT eCW1 ([facility]) gabapentin 100 MG Oral Capsule 06/23/2020 12:00:00 AM EDT eCW1 ([facility]) HM Lidocaine Patch 4 % 06/23/2020 12:00:00 AM EDT eCW1 ([facility]) Alendronic acid 70 MG Oral Tablet 06/23/2020 12:00:00 AM EDT eCW1 ([facility]) Metformin hydrochloride 500 MG Oral Tablet 06/23/2020 12:00:00 AM E DT eCW1 ([facility]) Acetaminophen 325 MG / Hydrocodone Bitartrate 5 MG Ora l Tablet 06/23/2020 12:00:00 AM EDT eCW1 ([facility]) gabapentin 100 MG Oral Capsule 06/23/2020 12:00:00 AM EDT eCW1 ([facility]) HM Lidocaine Patch 4 % 06/23/2020 12:00:00 AM EDT eCW1 ([facility]) Alendronic acid 70 MG Oral Tablet 06/23/2020 12:00:00 AM EDT eCW1 ([facility]) Metformin hydrochloride 500 MG Oral Tablet 06/23/2020 12:00:00 AM E DT eCW1 ([facility]) Acetaminophen 325 MG / Hydrocodone Bitartrate 5 MG Ora l Tablet 06/23/2020 12:00:00 AM EDT eCW1 ([facility]) gabapentin 100 MG Oral Capsule 06/23/2020 12:00:00 AM EDT eCW1 ([facility]) HM Lidocaine Patch 4 % 06/23/2020 12:00:00 AM EDT eCW1 ([facility])
[2020-12-03] MEDS ORDERED: IPRATROPIUM 0.5MG/ALBUTEROL 2.5MG INH SOL UD 3ML (DUONEB) NEB ONE (04:20)
[2020-12-03 04:58] LABS: BASO % 0.3 % (0.0-1.0); EOS # 0.2 10^3/uL (0.0-0.5); EOS % 1.1 % (0.0-3.0); HEMOGLOBIN 9.2 g/dl (12.0-15.5); LYMPH # 0.5 10^3/uL (1.5-5.0); LYMPH % 3.5 % (24.0-44.0); MEAN CORPUSCULAR HEMOGLOBIN 30.9 pg (27.0-33.0); MEAN CORPUSCULAR HGB CONC 31.7 g/dl (32.0-36.5); MEAN CORPUSCULAR VOLUME 97.3 fl (80.0-96.0); MONO # 0.5 10^3/uL (0.0-0.8); MONO % 3.7 % (2.0-8.0); NEUTROPHILS # 12.3 10^3/uL (1.5-8.5); NEUTROPHILS % 90.7 % (36.0-66.0); PLATELET COUNT, AUTOMATED 152 10^3/uL (150-450); RED BLOOD COUNT 2.98 10^6/uL (4.00-5.40); WHITE BLOOD COUNT 13.6 10^3/uL (4.0-10.0)
[2020-12-03] MEDS ORDERED: hydrALAZINE 20MG/ML 1ML VIAL (J0360 PER 20MG) IV ONE (05:05)
[2020-12-03 05:38] LABS: ALBUMIN 2.5 GM/DL (3.2-5.2); ALT/SGPT 23 U/L (12-78); BILIRUBIN,DIRECT < 0.1 MG/DL (0.0-0.2); BILIRUBIN,TOTAL 0.3 MG/DL (0.2-1.0); BLOOD UREA NITROGEN 26 MG/DL (7-18); CALCIUM LEVEL 8.1 MG/DL (8.8-10.2); CARBON DIOXIDE LEVEL 32 MEQ/L (21-32); CHLORIDE LEVEL 102 MEQ/L (98-107); CREATININE FOR GFR 1.19 MG/DL (0.55-1.30); GLOMERULAR FILTRATION RATE 47.1 (>39); GLUCOSE, FASTING 478 MG/DL (70-100); SODIUM LEVEL 138 MEQ/L (136-145); TOTAL PROTEIN 5.5 GM/DL (6.4-8.2)
[2020-12-03] MEDS ORDERED: HumuLIN R (REGULAR) INSULIN (NovoLIN R) **100U/ML** PER UNIT IV ONE (05:45)
--- NOTE | 2020-12-03 06:01 | REPVR ---
PROCEDURE INFORMATION: Exam: XR Chest Exam date and time: 12/03/2020 5:18 AM Age: 75 years old Clinical indication: Pulmonary infiltrates. Dyspnea/cough TECHNIQUE: Imaging protocol: XR of the chest. Views: 1 view. COMPARISON: CR PORTABLE CHEST X-RAY 11/30/2020 1:49 PM FINDINGS: Limitations: Multiple overlying electrocardiograph leads. Lungs: Pleural based density in the right midlung. Left lower lobe infiltrate. Pleural spaces: Moderate left pleural effusion. No right pleural effusion. No pneumothorax. Heart/Mediastinum: Unremarkable. No cardiomegaly. Vasculature: Moderate atherosclerotic calcification of the aortic arch. Bones/joints: Unremarkable. IMPRESSION: 1. Bilateral opacities. Unchanged on the right. Increased on the left. 2. Mild left pleural effusion. New from prior. Electronically signed by: Dontae Segal On 12/03/2020 06:00:12 AM
--- OUTSIDE RECORDS SUMMARY | 2020-12-03 06:09 | CCD ---
Author Author [facility] Organization [facility] Address Unknown Phone Unavailable Care Team Providers Care Product Marketing Consultant Name Role Phone Freddie WANG MD Unavailable [...] Unavailable CARMEN DAVIS Unavailable Unavailable Pleskach, Chelly TAIL EDGER Unavailable Unavailable Pleskach, Chelly TAIL EDGER Unavailable Unavailable Pleskach, Chelly TAIL EDGER Unavailable Unavailable Pleskach, Chelly TAIL EDGER Unavailable Unavailable Pleskach, Chelly TAIL EDGER Unavailable Unavailable Pleskach, Chelly TAIL EDGER Unavailable Unavailable Pleskach, Chelly TAIL EDGER Unavailable Unavailable Pleskach, Chelly TAIL EDGER Unavailable Unavailable Pleskach, Chelly TAIL EDGER Unavailable Unavailable Pleskach, Chelly TAIL EDGER Unavailable Unavailable Pleskach, Chelly TAIL EDGER Unavailable Unavailable Pleskach, Chelly TAIL EDGER Unavailable Unavailable Pleskach, Chelly TAIL EDGER Unavailable Unavailable Pleskach, Chelly TAIL EDGER Unavailable Unavailable Pleskach, Chelly TAIL EDGER Unavailable Unavailable Pleskach, Chelly TAIL EDGER Unavailable Unavailable Pleskach, Chelly TAIL EDGER Unavailable Unavailable Pleskach, Chelly TAIL EDGER Unavailable Unavailable Pleskach, Chelly TAIL EDGER Unavailable Unavailable Pleskach, Chelly TAIL EDGER Unavailable Unavailable Pleskach, Chelly TAIL EDGER Unavailable Unavailable Pleskach, Chelly TAIL EDGER Unavailable Unavailable Pleskach, Chelly TAIL EDGER Unavailable Unavailable Pleskach, Chelly TAIL EDGER Unavailable Unavailable Pleskach, Chelly TAIL EDGER Unavailable Unavailable Pleskach, Chelly TAIL EDGER Unavailable Unavailable Pleskach, Chelly TAIL EDGER Unavailable Unavailable Pleskach, Chelly TAIL EDGER Unavailable Unavailable Pleskach, Chelly TAIL EDGER Unavailable Unavailable Pleskach, Chelly TAIL EDGER Unavailable Unavailable Pleskach, Chelly TAIL EDGER Unavailable Unavailable Pleskach, Chelly TAIL EDGER Unavailable Unavailable Pleskach, Chelly TAIL EDGER Unavailable Unavailable Pleskach, Chelly TAIL EDGER Unavailable Unavailable Pleskach, Chelly TAIL EDGER Unavailable Unavailable Pleskach, Chelly TAIL EDGER Unavailable Unavailable Pleskach, Chelly TAIL EDGER Unavailable Unavailable Pleskach, Chelly TAIL EDGER Unavailable Unavailable Pleskach, Chelly TAIL EDGER Unavailable Unavailable Pleskach, Chelly TAIL EDGER Unavailable Unavailable Pleskach, Chelly TAIL EDGER Unavailable Unavailable Pleskach, Chelly TAIL EDGER Unavailable Unavailable AMEZQUITA, ANSHUL KWABENA TAIL EDGER-C, MSN Unavailable Unavailab le AMEZQUITA, ANSHUL KWABENA TAIL EDGER-C, MSN Unavailable Unavailab le AMEZQUITA, ANSHUL KWABENA TAIL EDGER-C, MSN Unavailable Unavailab le AMEZQUITA, ANSHUL KWABENA TAIL EDGER-C, MSN Unavailable Unavailab le AMEZQUITA, ANSHUL KWABENA TAIL EDGER-C, MSN Unavailable Unavailab le AMEZQUITA, ANSHUL KWABENA TAIL EDGER-C, MSN Unavailable Unavailab le AMEZQUITA, ANSHUL KWABENA TAIL EDGER-C, MSN Unavailable Unavailab le AMEZQUITA, ANSHUL KWABENA TAIL EDGER-C, MSN Unavailable Unavailab le AMEZQUITA, ANSHUL KWABENA TAIL EDGER-C, MSN Unavailable Unavailab le AMEZQUITA, ANSHUL KWABENA TAIL EDGER-C, MSN Unavailable Unavailab le AMEZQUITA, ANSHUL KWABENA TAIL EDGER-C, MSN Unavailable Unavailab le AMEZQUITA, ANSHUL KWABENA TAIL EDGER-C, MSN Unavailable Unavailab le AMEZQUITA, ANSHUL KWABENA TAIL EDGER-C, MSN Unavailable Unavailab le AMEZQUITA, ANSHUL KWABENA TAIL EDGER-C, MSN Unavailable Unavailab le AMEZQUITA, ANSHUL KWABENA TAIL EDGER-C, MSN Unavailable Unavailab le AMEZQUITA, ANSHUL KWABENA TAIL EDGER-C, MSN Unavailable Unavailab le AMEZQUITA, ANSHUL KWABENA TAIL EDGER-C, MSN Unavailable Unavailab le AMEZQUITA, ANSHUL KWABENA TAIL EDGER-C, MSN Unavailable Unavailab le AMEZQUITA, ANSHUL KWABENA TAIL EDGER-C, MSN Unavailable Unavailab le AMEZQUITA, ANSHUL KWABENA TAIL EDGER-C, MSN Unavailable Unavailab le AMEZQUITA, ANSHUL KWABENA TAIL EDGER-C, MSN Unavailable Unavailab le AMEZQUITA, ANSHUL KWABENA TAIL EDGER-C, MSN Unavailable Unavailab le AMEZQUITA, ANSHUL KWABENA TAIL EDGER-C, MSN Unavailable Unavailab le AMEZQUITA, ANSHUL KWABENA TAIL EDGER-C, MSN Unavailable Unavailab le AMEZQUITA, ANSHUL KWABENA TAIL EDGER-C, MSN Unavailable Unavailab le AMEZQUITA, ANSHUL KWABENA TAIL EDGER-C, MSN Unavailable Unavailab le AMEZQUITA, ANSHUL KWABENA TAIL EDGER-C, MSN Unavailable Unavailab le AMEZQUITA, ANSHUL KWABENA TAIL EDGER-C, MSN Unavailable Unavailab le AMEZQUITA, ANSHUL KWABENA TAIL EDGER-C, MSN Unavailable Unavailab le AMEZQUITA, ANSHUL KWABENA TAIL EDGER-C, MSN Unavailable Unavailab le AMEZQUITA, ANSHUL KWABENA TAIL EDGER-C, MSN Unavailable Unavailab le AMEZQUITA, ANSHUL KWABENA TAIL EDGER-C, MSN Unavailable Unavailab le AMEZQUITA, ANSHUL KWABENA TAIL EDGER-C, MSN Unavailable Unavailab le AMEZQUITA, ANSHUL KWABENA TAIL EDGER-C, MSN Unavailable Unavailab le AMEZQUITA, ANSHUL KWABENA TAIL EDGER-C, MSN Unavailable Unavailab le AMEZQUITA, ANSHUL KWABENA TAIL EDGER-C, MSN Unavailable Unavailab le AMEZQUITA, ANSHUL KWABENA TAIL EDGER-C, MSN Unavailable Unavailab le AMEZQUITA, ANSHUL KWABENA TAIL EDGER-C, MSN Unavailable Unavailab le AMEZQUITA, ANSHUL KWABENA TAIL EDGER-C, MSN Unavailable Unavailab le AMEZQUITA, ANSHUL KWABENA TAIL EDGER-C, MSN Unavailable Unavailab le AMEZQUITA, ANSHUL KWABENA TAIL EDGER-C, MSN Unavailable Unavailab le AMEZQUITA, ANSHUL KWABENA TAIL EDGER-C, MSN Unavailable Unavailab le AMEZQUITA, ANSHUL KWABENA TAIL EDGER-C, MSN Unavailable Unavailab le AMEZQUITA, ANSHUL KWABENA TAIL EDGER-C, MSN Unavailable Unavailab le AMEZQUITA, ANSHUL KWABENA TAIL EDGER-C, MSN Unavailable Unavailab le Selene Cummings MD [...] A RASTA DO Unavailable Unavailable SEARS, A RSATA DO Unavailable Unavailable SEARS, A RASTA DO [...] Zenaida Garcia MD Unavailable Unavailable Cederstrand, Zenaida Gacria MD Unavailable Unavailable Cederstrand, Zenaida Garcia MD Unavailable Unavailable Cederstrand, Zenaida Garcia MD Unavailable Unavailable Cederstrand, Zenaida Garcia MD Unavailable Unavailable Cederstrand, Zenaida Garcia MD Unavailable Unavailable Cederstrand, Zenaida Garcia MD Unavailable Unavailable DiVencenzo, Petra DO Unavailable Unavailable DiVencenzo, Petra DO Unavailable Unavailable DiVencenzo, Petra DO Unavailable Unavailable DiVencenzo, Petra DO Unavailable Unavailable DiVencenzo, Petra DO Unavailable Unavailable Demetrio PALMER Unavailable [phone] Demetrio PALMER Unavailable [phone] Demetrio PALMER Unavailable [phone] Demetrio PALMER Unavailable [phone] Demetrio PALMER PETRA Unavailable [phone] MICHAEL WANG MD Unavailable Unavailable Lyons, Noe PA Unavailable Unavailable Lyons, Noe PA Unavailable Unavailable Lyons, Noe PA Unavailable Unavailable Lyons, Noe PA Unavailable Unavailable Lyons, Noe PA Unavailable Unavailable Lyons, Noe PA Unavailable Unavailable Lyons, Noe PA Unavailable Unavailable Lyons, Noe PA Unavailable Unavailable Lyons, Noe PA Unavailable Unavailable Lyons, Noe PA Unavailable Unavailable Lyons, Noe PA Unavailable Unavailable Lyons, Noe PA Unavailable Unavailable Lyons, Noe PA Unavailable Unavailable Lyons, Noe PA Unavailable Unavailable Lyons, Noe PA Unavailable Unavailable Lyons, Noe PA Unavailable Unavailable Lyons, Noe PA Unavailable Unavailable Lyons, Noe PA Unavailable Unavailable MEDENT_23, [id number] Unavailable [phone] [facility], [id number] Unavailable [phone] [facility], [id number] Unavailable [phone] [facility], [id number] Unavailable [phone] [facility], [id number] Unavailable [phone] [facility], [id number] Unavailable [phone] [facility], [id number] Unavailable [phone] [facility], [id number] Unavailable [phone] [facility], [id number] Unavailable [phone] [facility], [id number] Unavailable [phone] [facility], [id number] Unavailable [phone] Conway, W Petra RPA-C Unavailable Unavailable Conway, W Petra RPA-C Unavailable Unavailable Conway, W Petra RPA-C Unavailable Unavailable Conway, W Petra RPA-C Unavailable Unavailable Conway, W Petra RPA-C Unavailable Unavailable Conway, W Petra RPA-C Unavailable Unavailable Conway, W Petra RPA-C Unavailable Unavailable Cownay, W Petra RPA-C Unavailable Unavailable Conway, W [...] is protected by Article 27-F of the [facility] Public Health law. If you continue you may have access to information: Regarding HIV / AIDS; Provided by facilities licensed or operated by the [facility] Office of Mental Health; or Provided by the [facility] Office for People With Developmental Disabilities. If such information is present, then the following [facility] mandated warning applies: This information has [...] allergy red (food color) red (food color) [facility] Drug allergy cortisone cortisone [facility] Drug allergy polymyxin B polymyxin [facility] Drug allergy fluoxetine fluoxetine [facility] Drug allergy tramadol tramadol [facility] Drug allergy bacitracin bacitracin [facility] Drug allergy neomycin neomycin [facility] Drug allergy SULFA SULFA [facility] Family History Family Member Name Family Member Gender Family Member Status Date o f Status Description Data Source(s) Unknown Male Problem MEDENT ([facility]) () Encounters Encounter Providers Location Date Indications Data Source(s ) Unknown [address] [facility] [address] 11/27/2020 12:00:00 AM EDT eCW1 ([facility]) [place] [address] [facility] [address] 11/23/2020 12:00:00 AM EDT eCW1 ([facility]) [place] [address] [facility] [address] 11/09/2020 12:00:00 AM EDT eCW1 ([facility]) [place] [address] [facility] [address] 08/31/2020 12:00:00 AM EDT eCW1 ([facility]) [place] [address] [facility] [address] 08/23/2020 12:00:00 AM EDT eCW1 ([facility]) [place] [address] [facility] [address] 08/11/2020 12:00:00 AM EDT eCW1 ([facility]) [place] [address] [facility] [address] 08/08/2020 12:00:00 AM EDT eCW1 ([facility]) [place] [address] [facility] [address] 08/04/2020 12:00:00 AM EDT eCW1 ([facility]) [place] [address] [facility] [address] 08/02/2020 12:00:00 AM EDT eCW1 ([facility]) [place] [address] [facility] [address] 07/31/2020 12:00:00 AM EDT eCW1 ([facility]) [place] [address] [facility] [address] 07/18/2020 12:00:00 AM EDT eCW1 ([facility]) [place] [address] [facility] [address] 07/17/2020 12:00:00 AM EDT eCW1 ([facility]) [place] [address] [facility] [address] 07/14/2020 12:00:00 AM EDT eCW1 ([facility]) [place] [address] [facility] [address] 07/14/2020 12:00:00 AM EDT [facility] [place] [address] [facility] [address] 07/12/2020 12:00:00 AM EDT [facility]CW1 [facility] [place] [address] [facility] [address] 07/12/2020 12:00:00 AM EDT eCW1 [facility] [place] [address] [facility] [address] 07/11/2020 12:00:00 AM EDT eCW1 [facility] [place] [address] [facility] [address] 06/29/2020 12:00:00 AM EDT eCW1 [facility] [place] [address] [facility] [address] 06/28/2020 12:00:00 AM EDT eCW1 [facility]) Outpatient [address] [facility] [address] 06/23/2020 12:00:00 AM EDT eCW1 [facility] Unknown [address] [facility] [address] 06/19/2020 12:00:00 AM EDT eCW1 [facility]) Inpatient Attender: GEORGIA DENIS DOAttender : MICHAEL WANG MDAttender: MICHAEL WANG MDAttender: MEHUL ARAIZA MDAttender: MEHUL ARAIZA MDAdmitter: MICHAEL WANG MD ER-2EAST 05/18/2020 07:42:00 PM EDT - 06/11/2020 06:33:00 PM EDT [facility] Patient discharged. Outpatient 05/18/2020 04:36:00 PM EDT Pneumonia , sepsis, needs [facility] Pneumonia, sepsis, needs MRI Emergency Attender: Favio ARNETT ttender: FAVIO VILLEGASAttender: STEVE DAVIS EMERGENCY ROOM-ER 05/18/2020 01:32:00 PM EDT - 05/18/2020 06:10:00 PM EDT [facility] Patient discharged. Outpatient Attender: Favioescobar Villegas DO ER-RAD 05/18/2020 10:45:00 AM EDT [facility] Outpatient Attender: Favio Bakari DOConsultant: [facility] p [id number] 05/17/2020 11:52:00 AM EDT [facility] Outpatient Attender: Zhanna Cummings MDConsultant: [facility] [id number] 05/17/2020 05:40:00 AM EDT [facility] Inpatient Attender: Zhanna Cummings MDAdmitter: Zhanna Cummings MD EMERGENCY ROOM-2N 05/16/2020 08:11:00 PM EDT - 05/18/2020 01:31:00 PM EDT [facility] Patient discharged. Outpatient Attender: OTHER PHYSICIANConsultant: [facility] [id number] 05/10/2020 08:50:00 PM EDT [facility] Inpatient Attender: [id number] MEDENT_ 23Attender: Petra Ortiz DOAdmitter: [id number] MEDENT_23 EMERGENCY ROOM-2N 05/10/2020 05:30:00 PM EDT - 05/16/2020 08:10:00 PM EDT [facility] Patient discharged. Outpatient Attender: JONES BECKETT PAConsultant: [facility] p [id number] 05/10/2020 02:09:00 PM EDT [facility] Emergency Attender: JONES RUIZ EMERGENCY ROOM-EMERG ENCY ROOM 05/10/2020 12:22:00 PM EDT - 05/10/2020 12:22:00 PM EDT [facility] Patient discharged. Outpatient Attender: RASTA Ernandez/Alie/Catrachito/Dakota 01/04/2020 01:30:00 PM EST MED[facility] ([facility] Outpatient Attender: Chelly Irizarry [facility] Main Office 01/03/2020 0 1:30:00 PM EST MEDENT ([facility] Outpatient Attender: Chelly Irizarry [facility] Main Office 12/20/2019 0 1:30:00 PM EST MEDENT ([facility] Outpatient Attender: RASTA RAO DO Robert/Fairburn/Catrachito/Reindl 12/15/2019 02:00:00 PM EST [facility] ([facility] Outpatient Attender: Radha Jones/Fairburn/Catrachito/ Reindl 12/02/2019 11:15:00 AM EDT MED[facility] ([facility]) Unknown [address] [place] [address], [place] [address] 11/30/2019 12:00:00 AM EDT eCW1 ([facility]) Outpatient [facility] 11/29/2019 12:02:06 AM EDT [facility] Outpatient Attender: Michelle Iraheta RPA Robert/Fairburn/Catrachito/R eindl 10/28/2019 11:45:00 AM EDT MEDENT ([facility] Outpatient Attender: Chelly Irizarry [facility] Main Office 10/20/2019 0 2:45:00 PM EDT MEDENT ([facility] Emergency Attender: JONES RUIZ EMERGENCY ROOM-ER 04:10:00 PM [facility] - 02/22/2016 07:48:00 PM [facility] Preadmit Attender: DELANEY SO MDAdmitter: KATHERIN SO MD EMERGENCY ROOM-2N 01/10/2016 09:39:00 AM EST - 10/13/2015 03:46:00 PM [facility] Outpatient Attender: PAU HOLLAND MD EMERGENCY ROOM-LABOT HPROV 12/27/2015 02:51:00 PM EST - 12/27/2015 02:51:00 PM [facility] Emergency Attender: Petra Conway RPA-C EMERGENCY ROOM-ER 1 03:15:00 PM EDT - 11/22/2015 07:20:00 PM [facility] Outpatient Attender: KWABENA CURRAN-C, MSN EMERGENCY RAMSEY M-RIVCLI 10/30/2015 01:30:00 PM [facility] Inpatient Attender: Noe Anderson PAAdmitter: PETRA ALBRECHTSHANE IN EMERGENCY ROOM-2N 10/19/2015 10:22:00 AM EDT - 10/25/2015 04:15:00 PM [facility] Inpatient Attender: DELANEY SO MDAdmitter: KATHERIN SO MD EMERGENCY ROOM-2N 10/13/2015 03:45:00 PM EDT - 10/19/2015 10:21:00 AM [facility] Immunizations Vaccine Date Status Description Data Source(s) COVID-19 VACCINE Moderna 07/06/2020 12:00:00 AM EDT completed [facility] Vaccine Series Complete: NOThis Data was Submitted to [facility] Via [employer]. New in 2011. IIV4 12/15/2019 04:05:00 AM EST completed MEDENT ([facility]) New in 2011. IIV4 12/14/2019 01:32:00 PM EST completed MEDENT ([facility] ) Medications Medication Brand Name Start Date Product Form Dose Route Admi nistrative Instructions Pharmacy Instructions Status Indications Reaction Description Data Source(s) Nicotine 7 MG/24HR Nicotine 7 MG/24HR 07/28/2020 12:00:00 AM EDT 1.0 {patch_to_skin} active Nicotine 7 MG/24 HR eCW1 ([facility]) Nicotine 7 MG/24HR Nicotine 7 MG/24HR 07/28/2020 12:00:00 AM EDT 1.0 {patch_to_skin} active Nicotine 7 MG/24 HR eCW1 ([facility]) Nicotine 7 MG/24HR Nicotine 7 MG/24HR 07/28/2020 12:00:00 AM EDT 1.0 {patch_to_skin} active Nicotine 7 MG/24 HR eCW1 ([facility]) Nicotine 7 MG/24HR Nicotine 7 MG/24HR 07/28/2020 12:00:00 AM EDT 1.0 {patch_to_skin} active Nicotine 7 MG/24 HR eCW1 ([facility]) Nicotine 7 MG/24HR Nicotine 7 MG/24HR 07/28/2020 12:00:00 AM EDT 1.0 {patch_to_skin} active Nicotine 7 MG/24 HR eCW1 ([facility]) Nicotine 7 MG/24HR Nicotine 7 MG/24HR 07/28/2020 12:00:00 AM EDT 1.0 {patch_to_skin} active Nicotine 7 MG/24 HR eCW1 ([facility]) Nicotine 7 MG/24HR Nicotine 7 MG/24HR 07/28/2020 12:00:00 AM EDT 1.0 {patch_to_skin} active Nicotine 7 MG/24 HR eCW1 ([facility]) Nicotine 7 MG/24HR Nicotine 7 MG/24HR 07/28/2020 12:00:00 AM EDT 1.0 {patch_to_skin} active Nicotine 7 MG/24 HR eCW1 ([facility]) Nicotine 7 MG/24HR Nicotine 7 MG/24HR 07/28/2020 12:00:00 AM EDT 1.0 {patch_to_skin} active Nicotine 7 MG/24 HR eCW1 ([facility]) Nicotine 7 MG/24HR Nicotine 7 MG/24HR 07/28/2020 12:00:00 AM EDT 1.0 {patch_to_skin} active Nicotine 7 MG/24 HR eCW1 ([facility]) Optifoam 4"X4" UNK 07/18/2020 12:00:00 AM EDT active Optifoam 4"X4" eCW1 ([facility]) Optifoam 4"X4" UNK 07/18/2020 12:00:00 AM EDT active Optifoam 4"X4" eCW1 ([facility]) Optifoam 4"X4" UNK 07/18/2020 12:00:00 AM EDT active Optifoam 4"X4" eCW1 ([facility]) Optifoam 4"X4" UNK 07/18/2020 12:00:00 AM EDT active Optifoam 4"X4" eCW1 ([facility]) Optifoam 4"X4" UNK 07/18/2020 12:00:00 AM EDT active Optifoam 4"X4" eCW1 ([facility]) Optifoam 4"X4" UNK 07/18/2020 12:00:00 AM EDT active Optifoam 4"X4" eCW1 ([facility]) Optifoam 4"X4" UNK 07/18/2020 12:00:00 AM EDT active Optifoam 4"X4" eCW1 ([facility]) Optifoam 4"X4" UNK 07/18/2020 12:00:00 AM EDT active Optifoam 4"X4" eCW1 ([facility]) Optifoam 4"X4" Optifoam 4"X4" 07/18/2020 12:00:00 AM EDT active Optifoam 4"X4" eCW1 ([facility]) Optifoam 4"X4" UNK 07/18/2020 12:00:00 AM EDT active Optifoam 4"X4" eCW1 ([facility]) Optifoam 4"X4" UNK 07/18/2020 12:00:00 AM EDT active Optifoam 4"X4" eCW1 ([facility]) Optifoam 4"X4" Optifoam 4"X4" 07/18/2020 12:00:00 AM EDT active Optifoam 4"X4" eCW1 ([facility]) Acetaminophen 325 MG / Hydrocodone Marin trate 5 MG Oral Tablet Hydrocodone- Acetaminophen 5-325 MG Hydrocodone-Acetaminophen 5-325 MG 06/23/2020 12:00:00 AM EDT 1.0 {tablet_as_needed} active Hydrocodone-Acetaminophen 5-325 MG eCW1 ([facility]) gabapentin 100 MG Oral Capsule Gabapentin 100 MG Gabapentin 100 MG 06/23/2020 12:00:00 AM EDT 1.0 {capsule} active G abapentin 100 MG eCW1 ([facility]) Acetaminophen 325 MG / Hydrocodone Marin trate 5 MG Oral Tablet HYDROcodone- Acetaminophen 5-325 MG HYDROcodone-Acetaminophen 5-325 MG 06/23/2020 12:00:00 AM EDT 1.0 {tablet_as_needed} active HYDROcodone-Acetaminophen 5-325 MG eCW1 ([facility]) Alendronic acid 70 MG Oral Tablet Alendronate Sodium 7 0 MG Alendronate Sodium 70 MG 06/23/2020 12:00:00 AM EDT active Alendronate Sodium 70 MG eCW1 ([facility]) Acetaminophen 325 MG / Hydrocodone Marin trate 5 MG Oral Tablet HYDROcodone- Acetaminophen 5-325 MG HYDROcodone-Acetaminophen 5-325 MG 06/23/2020 12:00:00 AM EDT 1.0 {tablet_as_needed} active HYDROcodone-Acetaminophen 5-325 MG eCW1 ([facility]) HM Lidocaine Patch 4 % HM Lidocaine Patch 4 % 06/23/2020 12:00:00 AM E DT active HM Lidocaine Patch 4 % eC W1 ([facility]) Metformin hydrochloride 500 MG Oral Tablet Metformin H Cl 500 MG Metformin HCl 500 MG 06/23/2020 12:00:00 AM EDT 1.0 {tablet_with_a_meal} active Metformin HCl 500 MG eCW1 ([facility]) HM Lidocaine Patch 4 % HM Lidocaine Patch 4 % 06/23/2020 12:00:00 AM E DT active HM Lidocaine Patch 4 % eC W1 ([facility]) gabapentin 100 MG Oral Capsule Gabapentin 100 MG Gabapentin 100 MG 06/23/2020 12:00:00 AM EDT 1.0 {capsule} active G abapentin 100 MG eCW1 ([facility]) Acetaminophen 325 MG / Hydrocodone Marin trate 5 MG Oral Tablet HYDROcodone- Acetaminophen 5-325 MG HYDROcodone-Acetaminophen 5-325 MG 06/23/2020 12:00:00 AM EDT 1.0 {tablet_as_needed} active HYDROcodone-Acetaminophen 5-325 MG eCW1 ([facility]) HM Lidocaine Patch 4 % HM Lidocaine Patch 4 % 06/23/2020 12:00:00 AM E DT active eCW1 ([facility]) Alendronic acid 70 MG Oral Tablet Alendronate Sodium 7 0 MG Alendronate Sodium 70 MG 06/23/2020 12:00:00 AM EDT active eCW1 ([facility]) Acetaminophen 325 MG / Hydrocodone Marin trate 5 MG Oral Tablet Hydrocodone- Acetaminophen 5-325 MG Hydrocodone-Acetaminophen 5-325 MG 06/23/2020 12:00:00 AM EDT 1.0 {tablet_as_needed} active Hydrocodone-Acetaminophen 5-325 MG eCW1 ([facility]) Acetaminophen 325 MG / Hydrocodone Marin trate 5 MG Oral Tablet HYDROcodone- Acetaminophen 5-325 MG HYDROcodone-Acetaminophen 5-325 MG 06/23/2020 12:00:00 AM EDT 1.0 {tablet_as_needed} active HYDROcodone-Acetaminophen 5-325 MG eCW1 ([facility]) HM Lidocaine Patch 4 % HM Lidocaine Patch 4 % 06/23/2020 12:00:00 AM E DT active HM Lidocaine Patch 4 % eC W1 ([facility]) Acetaminophen 325 MG / Hydrocodone Marin trate 5 MG Oral Tablet HYDROcodone- Acetaminophen 5-325 MG HYDROcodone-Acetaminophen 5-325 MG 06/23/2020 12:00:00 AM EDT 1.0 {tablet_as_needed} active HYDROcodone-Acetaminophen 5-325 MG eCW1 ([facility]) Alendronic acid 70 MG Oral Tablet Alendronate Sodium 7 0 MG Alendronate Sodium 70 MG 06/23/2020 12:00:00 AM EDT active Alendronate Sodium 70 MG eCW1 ([facility]) Acetaminophen 325 MG / Hydrocodone Marin trate 5 MG Oral Tablet HYDROcodone- Acetaminophen 5-325 MG HYDROcodone-Acetaminophen 5-325 MG 06/23/2020 12:00:00 AM EDT 1.0 {tablet_as_needed} active HYDROcodone-Acetaminophen 5-325 MG eCW1 ([facility]) HM Lidocaine Patch 4 % HM Lidocaine Patch 4 % 06/23/2020 12:00:00 AM E DT active HM Lidocaine Patch 4 % eC W1 ([facility]) Metformin hydrochloride 500 MG Oral Tablet Metformin H Cl 500 MG Metformin HCl 500 MG 06/23/2020 12:00:00 AM EDT 1.0 {tablet_with_a_meal} active Metformin HCl 500 MG eCW1 ([facility]) HM Lidocaine Patch 4 % HM Lidocaine Patch 4 % 06/23/2020 12:00:00 AM E DT active HM Lidocaine Patch 4 % eC W1 ([facility]) HM Lidocaine Patch 4 % HM Lidocaine Patch 4 % 06/23/2020 12:00:00 AM E DT active HM Lidocaine Patch 4 % eC W1 ([facility]) Metformin hydrochloride 500 MG Oral Tablet metFORMIN H Cl 500 MG metFORMIN HCl 500 MG 06/23/2020 12:00:00 AM EDT 1.0 {tablet_with_a_meal} active metFORMIN HCl 500 MG eCW1 ([facility]) Alendronic acid 70 MG Oral Tablet Alendronate Sodium 7 0 MG Alendronate Sodium 70 MG 06/23/2020 12:00:00 AM EDT active Alendronate Sodium 70 MG eCW1 ([facility]) gabapentin 100 MG Oral Capsule Gabapentin 100 MG Gabapentin 100 MG 06/23/2020 12:00:00 AM EDT 1.0 {capsule} active G abapentin 100 MG eCW1 ([facility]) Metformin hydrochloride 500 MG Oral Tablet Metformin H Cl 500 MG Metformin HCl 500 MG 06/23/2020 12:00:00 AM EDT 1.0 {tablet_with_a_meal} active Metformin HCl 500 MG eCW1 ([facility]) gabapentin 100 MG Oral Capsule Gabapentin 100 MG Gabapentin 100 MG 06/23/2020 12:00:00 AM EDT 1.0 {capsule} active G abapentin 100 MG eCW1 ([facility]) HM Lidocaine Patch 4 % HM Lidocaine Patch 4 % 06/23/2020 12:00:00 AM E DT active HM Lidocaine Patch 4 % eC W1 ([facility]) HM Lidocaine Patch 4 % HM Lidocaine Patch 4 % 06/23/2020 12:00:00 AM E DT active HM Lidocaine Patch 4 % eC W1 ([facility]) Acetaminophen 325 MG / Hydrocodone Marin trate 5 MG Oral Tablet Hydrocodone- Acetaminophen 5-325 MG Hydrocodone-Acetaminophen 5-325 MG 06/23/2020 12:00:00 AM EDT 1.0 {tablet_as_needed} active eCW1 ([facility]) HM Lidocaine Patch 4 % HM Lidocaine Patch 4 % 06/23/2020 12:00:00 AM E DT active HM Lidocaine Patch 4 % eC W1 ([facility]) Metformin hydrochloride 500 MG Oral Tablet metFORMIN H Cl 500 MG metFORMIN HCl 500 MG 06/23/2020 12:00:00 AM EDT 1.0 {tablet_with_a_meal} active metFORMIN HCl 500 MG eCW1 ([facility]) gabapentin 100 MG Oral Capsule Gabapentin 100 MG Gabapentin 100 MG 06/23/2020 12:00:00 AM EDT 1.0 {capsule} active G abapentin 100 MG eCW1 ([facility]) gabapentin 100 MG Oral Capsule Gabapentin 100 MG Gabapentin 100 MG 06/23/2020 12:00:00 AM EDT 1.0 {capsule} active eCW1 ([facility]) Acetaminophen 325 MG / Hydrocodone Marin trate 5 MG Oral Tablet HYDROcodone- Acetaminophen 5-325 MG HYDROcodone-Acetaminophen 5-325 MG 06/23/2020 12:00:00 AM EDT 1.0 {tablet_as_needed} active HYDROcodone-Acetaminophen 5-325 MG eCW1 ([facility]) Acetaminophen 325 MG / Hydrocodone Marin trate 5 MG Oral Tablet HYDROcodone- Acetaminophen 5-325 MG HYDROcodone-Acetaminophen 5-325 MG 06/23/2020 12:00:00 AM EDT 1.0 {tablet_as_needed} active HYDROcodone-Acetaminophen 5-325 MG eCW1 ([facility]) Metformin hydrochloride 500 MG Oral Tablet Metformin H Cl 500 MG Metformin HCl 500 MG 06/23/2020 12:00:00 AM EDT 1.0 {tablet_with_a_meal} active Metformin HCl 500 MG eCW1 ([facility]) Acetaminophen 325 MG / Hydrocodone Marin trate 5 MG Oral Tablet HYDROcodone- Acetaminophen 5-325 MG HYDROcodone-Acetaminophen 5-325 MG 06/23/2020 12:00:00 AM EDT 1.0 {tablet_as_needed} active HYDROcodone-Acetaminophen 5-325 MG eCW1 ([facility]) Alendronic acid 70 MG Oral Tablet Alendronate Sodium 7 0 MG Alendronate Sodium 70 MG 06/23/2020 12:00:00 AM EDT active Alendronate Sodium 70 MG eCW1 ([facility]) Alendronic acid 70 MG Oral Tablet Alendronate Sodium 7 0 MG Alendronate Sodium 70 MG 06/23/2020 12:00:00 AM EDT active Alendronate Sodium 70 MG eCW1 ([facility]) gabapentin 100 MG Oral Capsule Gabapentin 100 MG Gabapentin 100 MG 06/23/2020 12:00:00 AM EDT 1.0 {capsule} active G abapentin 100 MG eCW1 ([facility]) Alendronic acid 70 MG Oral Tablet Alendronate Sodium 7 0 MG Alendronate Sodium 70 MG 06/23/2020 12:00:00 AM EDT active Alendronate Sodium 70 MG eCW1 ([facility]) Metformin hydrochloride 500 MG Oral Tablet metFORMIN H Cl 500 MG metFORMIN HCl 500 MG 06/23/2020 12:00:00 AM EDT 1.0 {tablet_with_a_meal} active metFORMIN HCl 500 MG eCW1 ([facility]) Alendronic acid 70 MG Oral Tablet Alendronate Sodium 7 0 MG Alendronate Sodium 70 MG 06/23/2020 12:00:00 AM EDT active Alendronate Sodium 70 MG eCW1 ([facility]) Alendronic acid 70 MG Oral Tablet Alendronate Sodium 7 0 MG Alendronate Sodium 70 MG 06/23/2020 12:00:00 AM EDT active Alendronate Sodium 70 MG eCW1 ([facility]) Acetaminophen 325 MG / Hydrocodone Marin trate 5 MG Oral Tablet HYDROcodone- Acetaminophen 5-325 MG HYDROcodone-Acetaminophen 5-325 MG 06/23/2020 12:00:00 AM EDT 1.0 {tablet_as_needed} active HYDROcodone-Acetaminophen 5-325 MG eCW1 ([facility]) Metformin hydrochloride 500 MG Oral Tablet metFORMIN H Cl 500 MG metFORMIN HCl 500 MG 06/23/2020 12:00:00 AM EDT 1.0 {tablet_with_a_meal} active metFORMIN HCl 500 MG eCW1 ([facility]) Alendronic acid 70 MG Oral Tablet Alendronate Sodium 7 0 MG Alendronate Sodium 70 MG 06/23/2020 12:00:00 AM EDT active Alendronate Sodium 70 MG eCW1 ([facility]) Acetaminophen 325 MG / Hydrocodone Marin trate 5 MG Oral Tablet HYDROcodone- Acetaminophen 5-325 MG HYDROcodone-Acetaminophen 5-325 MG 06/23/2020 12:00:00 AM EDT 1.0 {tablet_as_needed} active HYDROcodone-Acetaminophen 5-325 MG eCW1 ([facility]) Metformin hydrochloride 500 MG Oral Tablet metFORMIN H Cl 500 MG metFORMIN HCl 500 MG 06/23/2020 12:00:00 AM EDT 1.0 {tablet_with_a_meal} active metFORMIN HCl 500 MG eCW1 ([facility]) Acetaminophen 325 MG / Hydrocodone Marin trate 5 MG Oral Tablet Hydrocodone- Acetaminophen 5-325 MG Hydrocodone-Acetaminophen 5-325 MG 06/23/2020 12:00:00 AM EDT 1.0 {tablet_as_needed} active Hydrocodone-Acetaminophen 5-325 MG eCW1 ([facility]) HM Lidocaine Patch 4 % HM Lidocaine Patch 4 % 06/23/2020 12:00:00 AM E DT active HM Lidocaine Patch 4 % eC W1 ([facility]) Metformin hydrochloride 500 MG Oral Tablet Metformin H Cl 500 MG Metformin HCl 500 MG 06/23/2020 12:00:00 AM EDT 1.0 {tablet_with_a_meal} active Metformin HCl 500 MG eCW1 ([facility]) gabapentin 100 MG Oral Capsule Gabapentin 100 MG Gabapentin 100 MG 06/23/2020 12:00:00 AM EDT 1.0 {capsule} active G abapentin 100 MG eCW1 ([facility]) Acetaminophen 325 MG / Hydrocodone Marin trate 5 MG Oral Tablet Hydrocodone- Acetaminophen 5-325 MG Hydrocodone-Acetaminophen 5-325 MG 06/23/2020 12:00:00 AM EDT 1.0 {tablet_as_needed} active Hydrocodone-Acetaminophen 5-325 MG eCW1 ([facility]) Metformin hydrochloride 500 MG Oral Tablet Metformin H Cl 500 MG Metformin HCl 500 MG 06/23/2020 12:00:00 AM EDT 1.0 {tablet_with_a_meal} active Metformin HCl 500 MG eCW1 ([facility]) HM Lidocaine Patch 4 % HM Lidocaine Patch 4 % 06/23/2020 12:00:00 AM E DT active HM Lidocaine Patch 4 % eC W1 ([facility]) Alendronic acid 70 MG Oral Tablet Alendronate Sodium 7 0 MG Alendronate Sodium 70 MG 06/23/2020 12:00:00 AM EDT active Alendronate Sodium 70 MG eCW1 ([facility]) Alendronic acid 70 MG Oral Tablet Alendronate Sodium 7 0 MG Alendronate Sodium 70 MG 06/23/2020 12:00:00 AM EDT active Alendronate Sodium 70 MG eCW1 ([facility]) gabapentin 100 MG Oral Capsule Gabapentin 100 MG Gabapentin 100 MG 06/23/2020 12:00:00 AM EDT 1.0 {capsule} active G abapentin 100 MG eCW1 ([facility]) HM Lidocaine Patch 4 % HM Lidocaine Patch 4 % 06/23/2020 12:00:00 AM E DT active HM Lidocaine Patch 4 % eC W1 ([facility]) gabapentin 100 MG Oral Capsule Gabapentin 100 MG Gabapentin 100 MG 06/23/2020 12:00:00 AM EDT 1.0 {capsule} active G abapentin 100 MG eCW1 ([facility]) Alendronic acid 70 MG Oral Tablet Alendronate Sodium 7 0 MG Alendronate Sodium 70 MG 06/23/2020 12:00:00 AM EDT active Alendronate Sodium 70 MG eCW1 ([facility]) Metformin hydrochloride 500 MG Oral Tablet metFORMIN H Cl 500 MG metFORMIN HCl 500 MG 06/23/2020 12:00:00 AM EDT 1.0 {tablet_with_a_meal} active metFORMIN HCl 500 MG eCW1 ([facility]) Metformin hydrochloride 500 MG Oral Tablet metFORMIN H Cl 500 MG metFORMIN HCl 500 MG 06/23/2020 12:00:00 AM EDT 1.0 {tablet_with_a_meal} active metFORMIN HCl 500 MG eCW1 ([facility]) Metformin hydrochloride 500 MG Oral Tablet metFORMIN H Cl 500 MG metFORMIN HCl 500 MG 06/23/2020 12:00:00 AM EDT 1.0 {tablet_with_a_meal} active metFORMIN HCl 500 MG eCW1 ([facility]) Alendronic acid 70 MG Oral Tablet Alendronate Sodium 7 0 MG Alendronate Sodium 70 MG 06/23/2020 12:00:00 AM EDT active Alendronate Sodium 70 MG eCW1 ([facility]) Alendronic acid 70 MG Oral Tablet Alendronate Sodium 7 0 MG Alendronate Sodium 70 MG 06/23/2020 12:00:00 AM EDT active Alendronate Sodium 70 MG eCW1 ([facility]) Acetaminophen 325 MG / Hydrocodone Marin trate 5 MG Oral Tablet Hydrocodone- Acetaminophen 5-325 MG Hydrocodone-Acetaminophen 5-325 MG 06/23/2020 12:00:00 AM EDT 1.0 {tablet_as_needed} active Hydrocodone-Acetaminophen 5-325 MG eCW1 ([facility]) Alendronic acid 70 MG Oral Tablet Alendronate Sodium 7 0 MG Alendronate Sodium 70 MG 06/23/2020 12:00:00 AM EDT active Alendronate Sodium 70 MG eCW1 ([facility]) Alendronic acid 70 MG Oral Tablet Alendronate Sodium 7 0 MG Alendronate Sodium 70 MG 06/23/2020 12:00:00 AM EDT active Alendronate Sodium 70 MG eCW1 ([facility]) Alendronic acid 70 MG Oral Tablet Alendronate Sodium 7 0 MG Alendronate Sodium 70 MG 06/23/2020 12:00:00 AM EDT active Alendronate Sodium 70 MG eCW1 ([facility]) Alendronic acid 70 MG Oral Tablet Alendronate Sodium 7 0 MG Alendronate Sodium 70 MG 06/23/2020 12:00:00 AM EDT active Alendronate Sodium 70 MG eCW1 ([facility]) Metformin hydrochloride 500 MG Oral Tablet metFORMIN H Cl 500 MG metFORMIN HCl 500 MG 06/23/2020 12:00:00 AM EDT 1.0 {tablet_with_a_meal} active metFORMIN HCl 500 MG eCW1 ([facility]) Metformin hydrochloride 500 MG Oral Tablet Metformin H Cl 500 MG Metformin HCl 500 MG 06/23/2020 12:00:00 AM EDT 1.0 {tablet_with_a_meal} active eCW1 ([facility]) HM Lidocaine Patch 4 % HM Lidocaine Patch 4 % 06/23/2020 12:00:00 AM E DT active HM Lidocaine Patch 4 % eC W1 ([facility]) HM Lidocaine Patch 4 % HM Lidocaine Patch 4 % 06/23/2020 12:00:00 AM E DT active HM Lidocaine Patch 4 % eC W1 ([facility]) Metformin hydrochloride 500 MG Oral Tablet Metformin H Cl 500 MG Metformin HCl 500 MG 06/23/2020 12:00:00 AM EDT 1.0 {tablet_with_a_meal} active Metformin HCl 500 MG eCW1 ([facility]) Metformin hydrochloride 500 MG Oral Tablet metFORMIN H Cl 500 MG metFORMIN HCl 500 MG 06/23/2020 12:00:00 AM EDT 1.0 {tablet_with_a_meal} active metFORMIN HCl 500 MG eCW1 ([facility]) Acetaminophen 325 MG / Hydrocodone Marin trate 5 MG Oral Tablet Hydrocodone- Acetaminophen 5-325 MG Hydrocodone-Acetaminophen 5-325 MG 06/23/2020 12:00:00 AM EDT 1.0 {tablet_as_needed} active Hydrocodone-Acetaminophen 5-325 MG eCW1 ([facility]) HM Lidocaine Patch 4 % HM Lidocaine Patch 4 % 06/23/2020 12:00:00 AM E DT active HM Lidocaine Patch 4 % eC W1 ([facility]) HM Lidocaine Patch 4 % HM Lidocaine Patch 4 % 06/23/2020 12:00:00 AM E DT active HM Lidocaine Patch 4 % eC W1 ([facility]) gabapentin 100 MG Oral Capsule Gabapentin 100 MG Gabapentin 100 MG 06/23/2020 12:00:00 AM EDT 1.0 {capsule} active G abapentin 100 MG eCW1 ([facility]) gabapentin 100 MG Oral Capsule Gabapentin 100 MG Gabapentin 100 MG 06/23/2020 12:00:00 AM EDT 1.0 {capsule} active G abapentin 100 MG eCW1 ([facility]) Alendronic acid 70 MG Oral Tablet Alendronate Sodium 7 0 MG Alendronate Sodium 70 MG 06/23/2020 12:00:00 AM EDT active Alendronate Sodium 70 MG eCW1 ([facility]) Acetaminophen 325 MG / Hydrocodone Marin trate 5 MG Oral Tablet Hydrocodone- Acetaminophen 5-325 MG Hydrocodone-Acetaminophen 5-325 MG 06/23/2020 12:00:00 AM EDT 1.0 {tablet_as_needed} active Hydrocodone-Acetaminophen 5-325 MG eCW1 ([facility]) Alendronic acid 70 MG Oral Tablet Alendronate Sodium 7 0 MG Alendronate Sodium 70 MG 06/23/2020 12:00:00 AM EDT active Alendronate Sodium 70 MG eCW1 ([facility]) gabapentin 100 MG Oral Capsule Gabapentin 100 MG Gabapentin 100 MG 06/23/2020 12:00:00 AM EDT 1.0 {capsule} active G abapentin 100 MG eCW1 ([facility]) gabapentin 100 MG Oral Capsule Gabapentin 100 MG Gabapentin 100 MG 06/23/2020 12:00:00 AM EDT 1.0 {capsule} active G abapentin 100 MG eCW1 ([facility]) HM Lidocaine Patch 4 % HM Lidocaine Patch 4 % 06/23/2020 12:00:00 AM E DT active HM Lidocaine Patch 4 % eC W1 ([facility]) gabapentin 100 MG Oral Capsule Gabapentin 100 MG Gabapentin 100 MG 06/23/2020 12:00:00 AM EDT 1.0 {capsule} active G abapentin 100 MG eCW1 ([facility]) HM Lidocaine Patch 4 % HM Lidocaine Patch 4 % 06/23/2020 12:00:00 AM E DT active HM Lidocaine Patch 4 % eC W1 ([facility]) Metformin hydrochloride 500 MG Oral Tablet metFORMIN H Cl 500 MG metFORMIN HCl 500 MG 06/23/2020 12:00:00 AM EDT 1.0 {tablet_with_a_meal} active metFORMIN HCl 500 MG eCW1 ([facility]) Metformin hydrochloride 500 MG Oral Tablet Metformin H Cl 500 MG Metformin HCl 500 MG 06/23/2020 12:00:00 AM EDT 1.0 {tablet_with_a_meal} active Metformin HCl 500 MG eCW1 ([facility]) Acetaminophen 325 MG / Hydrocodone Marin trate 5 MG Oral Tablet Hydrocodone- Acetaminophen 5-325 MG Hydrocodone-Acetaminophen 5-325 MG 06/23/2020 12:00:00 AM EDT 1.0 {tablet_as_needed} active Hydrocodone-Acetaminophen 5-325 MG eCW1 ([facility]) Metformin hydrochloride 500 MG Oral Tablet metFORMIN H Cl 500 MG metFORMIN HCl 500 MG 06/23/2020 12:00:00 AM EDT 1.0 {tablet_with_a_meal} active metFORMIN HCl 500 MG eCW1 ([facility]) gabapentin 100 MG Oral Capsule Gabapentin 100 MG Gabapentin 100 MG 06/23/2020 12:00:00 AM EDT 1.0 {capsule} active G abapentin 100 MG eCW1 ([facility]) Acetaminophen 325 MG / Hydrocodone Marin trate 5 MG Oral Tablet HYDROcodone- Acetaminophen 5-325 MG HYDROcodone-Acetaminophen 5-325 MG 06/23/2020 12:00:00 AM EDT 1.0 {tablet_as_needed} active HYDROcodone-Acetaminophen 5-325 MG eCW1 ([facility]) gabapentin 100 MG Oral Capsule Gabapentin 100 MG Gabapentin 100 MG 06/23/2020 12:00:00 AM EDT 1.0 {capsule} active G abapentin 100 MG eCW1 ([facility]) HM Lidocaine Patch 4 % HM Lidocaine Patch 4 % 06/23/2020 12:00:00 AM E DT active HM Lidocaine Patch 4 % eC W1 ([facility]) HM Lidocaine Patch 4 % HM Lidocaine Patch 4 % 06/23/2020 12:00:00 AM E DT active HM Lidocaine Patch 4 % eC W1 ([facility]) TENS Therapy Pain Relief 01/03/2020 12:00:00 AM [...] Policy [place] Plan Information [place]IC[place] [id number] S [id number] MEDICARE A [id number] Self [id number] A [employer] [id number] S [id number] Medicare P [id number] S [id number] A Today's Options Commercial [id number] Self [id number] WELLCARE [id number] SP [id number] TODAYS OPTIONS [id number] SP [id number] TODAYS OPTIONS [id number] SP [id number] WELLCARE MEDICARE HMO G [id number] Self [id number] MEDICARE C [id number] S [id number] WELLCARE O [id number] S [id number] MEDICARE [id number] SP [id number] Wellcare Commercial [id number] Self [id number] Well Care Medigap Part B [id number] Self [id number] Today's Option Commercial [id number] Self [id number] Wellcare Commercial [id number] Self [id number] Well Care Medigap Part B [id number] Self [id number] Today's Option Commercial [id number] Self [id number] Wellcare Commercial [id number] S elf [id number] [place] [id number] Self [id number] Today's Option Commercial [id number] 983.0 Self [id number] ANSI-Health Maintenance Organization ( O) [id number] ANSI-Medicare Part B [id number] Today's Option Commercial [id number] 983.0 Self [id number] ANSI-Medicare Part B [id number] ANSI-Health Maintenance Organization ( O) [id number] ANSI-Health Maintenance Organization ( O) [id number] ANSI-Medicare Part B [id number] Today's Option Commercial [id number] 983.0 Self [id number] WELLCARE O [id number] S [id number] Today's Option Commercial [id number] 983.0 Self [id number] Today's Option Commercial [id number] 983.0 Self [id number] Today's Option Commercial [id number] 983.0 Self [id number] Today's Option Commercial [id number] 983.0 Self [id number] Today's Option Commercial [id number] 983.0 Self [id number] Today's Option Commercial [id number] 983.0 Self [id number] TODAYS OPTIONS/[place] O [id number] S [id number] MEDICARE C [id number] S [id number] A TODAYS OPTIONS [id number] SP [id number] MEDICAID [id number] SP [id number] MEDICARE [id number] SP [id number] A Today's Option Commercial [id number] 983.0 Self [id number] Today's Option Commercial [id number] 983.0 Self [id number] TODAYS OPTIONS [id number] SP [id number] Medicare [place] Medicare Primary [id number] Self [id number] [place] MEDICARE PART B C [id number] S [id number] MEDICARE PART A -O/P [id number] 18 [id number] [employer], [facility] C [id number] S [id number] WELLCARE [id number] SP [id number] MEDICARE MEDICARE [id number] Self ELA COUTURE MED ICARE WELLCARE [id number] S [id number] WELLCARE [id number] SP [id number] MEDICARE [id number] SP [id number] A MEDICARE [id number] SP [id number] [facility] [id number] S [id number] MEDICARE [id number] SP [id number] [employer] [id number] S [id number] [place]ICARE [place] [id number] S [id number] Problems, Conditions, and Diagnoses Code Display Name Description Problem Type Effective Dates Data Source(s) Y92.[address] or not applicable UNSPECIFIED PL[address] OR NOT APPLICABLE Diagnosis 05/18/2020 07:42:00 PM EDT [facility] W19.XXXA Unspecified fall, initial encounter UNSP ECIFIED FALL, INITIAL ENCOUNTER Diagnosis 05/18/2020 07:42:00 PM [facility]T [facility] E11.649 Type 2 diabetes mellitus with hypoglycem ia without coma TYPE 2 DIABETES MELLITUS WITH HYPOGLYCEMIA WITHOUT Diagnosis 05/18/2020 07:42:00 PM ED T [facility] B37.3 Candidiasis of vulva and vagina CANDIDIASIS OF VULVA A ND VAGINA Diagnosis 05/18/2020 07:42:00 PM EDT [facility] D69.6 Thrombocytopenia, unspecified THROMBOCYTOPENIA, UNSPEC IFIED Diagnosis 05/18/2020 07:42:00 PM EDT [facility] F19.10 Other psychoactive substance abuse, unco mplicated OTHER PSYCHOACTIVE SUBSTANCE ABUSE, UNCOMPLICATED Diagnosis 05/18/2020 07:42:00 PM EDT [facility] D72.829 Elevated white blood cell count, unspeci fied ELEVATED WHITE BLOOD CELL COUNT, UNSPECIFIED Diagnosis 05/18/2020 07:42:00 PM EDT [facility] M48.00 Spinal stenosis, site unspecified [...] WITH HYPERGLYCEMIA Diagnosis 05/18/2020 07:42:00 PM EDT [facility] I12.9 Hypertensive chronic kidney disease with stage 1 through stage 4 chronic kidney disease, or unspecified chronic kidney disease HYPERTENSIVE CHRONIC KIDNEY DISEASE W STG 1-4/UNSP Diagnosis 05/18/2020 07:42:00 PM EDT [facility] D63.8 Anemia in other chronic diseases classif ied elsewhere ANEMIA IN OTHER CHRONIC DISEASES CLASSIFIED ELSEWH Diagnosis 05/18/2020 07:42:00 PM ED [facility] E11.51 Type 2 diabetes mellitus wit h diabetic peripheral angiopathy without gangrene TYPE 2 DIABETES W DIABETIC PERIPHERAL ANGIOPATH W/ Diagnosis 05/18/2020 07:42:00 PM [facility] N18.9 Chronic kidney disease, unspecified CHRONIC KIDN EY DISEASE, UNSPECIFIED Diagnosis 05/18/2020 07:42:00 PM [facility] E11.22 Type 2 diabetes mellitus with diabetic c hronic kidney disease TYPE 2 DIABETES MELLITUS W DIABETIC CHRONIC KIDNEY Diagnosis 05/18/2020 07:42:00 PM [facility] 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, not elsewhere classified OT DISORDERS OF PLASMA-PROTEIN METABOLISM, NEC Diagnosis 2020 07:42:00 PM [facility] S22.019A Unspecified fracture of firs t thoracic vertebra, initial encounter for closed fracture UNSP FRACTURE OF FIRST THORACIC VERTEBRA, INIT FOR Diagnosis 05/18/2020 07:42:00 PM [facility] N17.9 Acute kidney failure, unspecified ACUTE KIDNEY F AILURE, UNSPECIFIED Diagnosis 05/18/2020 07:42:00 PM [facility] J44.1 Chronic obstructive pulmonary disease wi th (acute) exacerbation CHRONIC OBSTRUCTIVE PULMONARY DISEASE W (ACUTE) EX Diagnosis 05/18/2020 07:42: 00 PM [facility] J90 Pleural effusion, not elsewhere classifi ed PLEURAL EFFUSION, NOT ELSEWHERE CLASSIFIED Diagnosis 05/18/2020 07:42:00 PM EDT [facility] J98.11 Atelectasis ATELECTASIS Diagnosis 05/18/2020 07:42:00 PM EDT [facility] N39.0 Urinary tract infection, site not specif ied URINARY TRACT INFECTION, SITE NOT SPECIFIED Diagnosis 05/18/2020 07:42:00 PM EDT [facility] J96.21 Acute and chronic respiratory failure [...] UNSPECIFIED, UNCOMPLICATED Diagnosis 05/18/2020 07:42:00 PM EDT [facility] E78.5 Hyperlipidemia, unspecified HYPERLIPIDEMIA, UNSPECIFIE D Diagnosis 05/18/2020 07:42:00 PM EDT [facility] F32.9 Major depressive disorder, single episod e, unspecified MAJOR DEPRESSIVE DISORDER, SINGLE EPISODE, UNSPECI Diagnosis 05/18/2020 07:42:00 PM EDT [facility] J44.9 Chronic obstructive pulmonary disease, u nspecified CHRONIC OBSTRUCTIVE PULMONARY DISEASE, UNSPECIFIED Diagnosis 05/18/2020 07:42:00 PM [facility] Pneumonia, sepsis, needs MRI Pneumonia, sepsis, needs MRI Diagnosis 05/18/2020 04:36:00 PM [facility] Z87.891 Personal history of nicotine dependence PERSONAL HISTORY OF NICOTINE DEPENDENCE Diagnosis 05/18/2020 01:32:00 PM [facility] Z99.81 Dependence on supplemental oxygen DEPENDENCE ON SUPPLEMENTAL OXYGEN Diagnosis 05/18/2020 01:32:00 PM [facility] 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 TECHNICIAN (CURRENT) USE OF OPIATE ANALGESIC Diagnosis 05/18/2020 01:32:00 PM [facility] 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.02 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) use of antithromboti cs/antiplatelets SENIOR CARE (CURRENT) USE OF ANTITHROMBOTICS/ANTIPLA Diagnosis 05/18/2020 01:32:00 PM [facility] Z79.899 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 therapy O THER SENIOR CARE (CURRENT) DRUG THERAPY Diagnosis 05/18/2020 01:32:00 PM [facility] I10 Essential (primary) hypertension ESSENTIAL (PRIMARY) H YPERTENSION Diagnosis 05/18/2020 01:32:00 PM [facility] E11.9 Type 2 diabetes mellitus without complic ations TYPE 2 DIABETES MELLITUS WITHOUT COMPLICATIONS Diagnosis 05/18/2020 01:32:00 PM [facility] jer J44.9 Chronic obstructive pulmonary disease, u nspecified CHRONIC OBSTRUCTIVE PULMONARY DISEASE, UNSPECIFIED Diagnosis 05/18/2020 01:32:00 PM [facility] K59.00 Constipation, unspecified CONSTIPATION, UNSPECIFIED Di agnosis 05/18/2020 01:32:00 PM [facility] N17.9 Acute kidney failure, unspecified ACUTE KIDNEY F AILURE, UNSPECIFIED Diagnosis 05/18/2020 01:32:00 PM [facility] I16.0 HYPERTENSIVE URGENCY HYPERTENSIVE URGENCY Diagnosis 05/18/2020 01:32:00 PM [facility] G93.41 Metabolic encephalopathy METABOLIC ENCEPHALOPATHY Diag nosis 05/18/2020 01:32:00 PM [facility] G89.29 Other chronic pain OTHER CHRONIC PAIN Diagnosis 09/2020 01:32:00 PM [facility] M54.5 Low back pain LOW BACK PAIN Diagnosis 05/18/2020 01:32:00 PM [facility] D72.829 Elevated white blood cell count, unspeci fied ELEVATED WHITE BLOOD CELL COUNT, UNSPECIFIED Diagnosis 05/18/2020 01:32:00 PM [facility] l J18.9 Pneumonia, unspecified organism PNEUMONIA, UNSPECIFIED ORGANISM Diagnosis 05/18/2020 01:32:00 PM [facility] R53.1 Weakness WEAKNESS Diagnosis 05/18/2020 01:32:00 PM [facility] Z45.2 Encounter for adjustment and management of vascular access device ENCOUNTER FOR ADJUSTMENT AND MANAGEMENT OF VAD Diagnosis 021 10:45:00 AM [facility] Z79.899 Other senior living (current) drug therapy O THER URINALYSIS TECHNICIAN (CURRENT) DRUG THERAPY Diagnosis 05/18/2020 10:45:00 AM [facility] N32.89 Other specified disorders of bladder OTH ER SPECIFIED DISORDERS OF BLADDER Diagnosis 05/16/2020 08:11:00 PM [facility] R41.0 Disorientation, unspecified DISORIENTATION, UNSPECIFIE D Diagnosis 05/16/2020 08:11:00 PM [facility] R45.1 Restlessness and agitation RESTLESSNESS AND AGITATION Diagnosis 05/16/2020 08:11:00 PM [facility] K59.03 DRUG INDUCED CONSTIPATION DRUG INDUCED CONSTIPATION Di agnosis 05/16/2020 08:11:00 PM [facility] K21.9 Gastro-esophageal reflux disease without esophagitis GASTRO-ESOPHAGEAL REFLUX DISEASE WITHOUT ESOPHAGIT Diagnosis 05/16/2020 08:11:00 PM [facility] M54.6 Pain in thoracic spine PAIN IN THORACIC SPINE Diagnosi s 05/16/2020 08:11:00 PM [facility] E78.5 Hyperlipidemia, unspecified HYPERLIPIDEMIA, UNSPECIFIE D Diagnosis 05/16/2020 08:11:00 PM [facility] R26.81 Unsteadiness on feet UNSTEADINESS ON FEET Diagnosis 05/16/2020 08:11:00 PM [facility] E11.649 Type 2 diabetes mellitus with hypoglycem ia without coma TYPE 2 DIABETES MELLITUS WITH HYPOGLYCEMIA WITHOUT Diagnosis 05/16/2020 08:11:00 PM [facility] R53.81 Other malaise OTHER MALAISE Diagnosis 05/16/2020 08:11:00 PM [facility] J96.21 Acute and chronic respiratory failure wi th hypoxia ACUTE AND CHRONIC RESPIRATORY FAILURE WITH HYPOXIA Diagnosis 05/16/2020 08:11:00 PM [facility] A41.9 Sepsis, unspecified organism SEPSIS, UNSPECIFIED ORGAN ISM Diagnosis 05/16/2020 08:11:00 PM [facility] J15.212 Pneumonia due to Methicillin resistant S taphylococcus aureus PNEUMONIA DUE TO METHICILLIN RESISTANT STAPHYLOCOCCUS AUREUS Diagnosis 07/2020 08:11:00 PM [facility] Z86.14 Personal history of Methicil criss resistant Staphylococcus aureus infection PERSONAL HISTORY OF METHICILLIN RESIS STAPH INFECT Diagnosis 05/10/2020 05:30:00 PM [facility] Z91.14 Patient's other noncompliance with medic ation regimen PATIENT'S OTHER NONCOMPLIANCE WITH MEDICATION NUZHAT Diagnosis 05/10/2020 05:30:00 PM [facility] Z79.51 [facility] (current) use of inhaled stero ids [facility]ENIOR [facility]ARE (CURRENT) USE OF INHALED STEROIDS Diagnosis 05/10/2020 [facility] History of falling HISTORY OF FALLING Diagnosis 05:30:00 PM [facility] Z87.448 Personal history of other diseases of ur inary system PERSONAL HISTORY OF OTHER DISEASES OF URINARY SYST Diagnosis 05/10/2020 05:30:00 PM [facility] I12.9 Hypertensive chronic kidney disease with stage 1 through stage 4 chronic kidney disease, or unspecified chronic kidney disease HYPERTENSIVE CHRONIC KIDNEY DISEASE W STG 1-4/UNSP Diagnosis 05/10/2020 05:30:00 PM [facility] K44.9 Diaphragmatic hernia without obstruction or gangrene DIAPHRAGMATIC HERNIA WITHOUT OBSTRUCTION OR GANGRE Diagnosis 05/10/2020 05:30:00 PM [facility] D64.9 Anemia, unspecified ANEMIA, UNSPECIFIED Diagnosis 0 05/10/2020 05:30:00 PM [facility] R59.1 Generalized enlarged lymph nodes GENERALIZED ENL ARGED LYMPH NODES Diagnosis 05/10/2020 05:30:00 PM [facility] F17.210 Nicotine dependence, cigarettes, uncompl icated NICOTINE DEPENDENCE, CIGARETTES, UNCOMPLICATED Diagnosis 05/10/2020 05:30:00 PM [facility] R41.3 Other amnesia OTHER AMNESIA Diagnosis 05/10/2020 05:30:00 PM [facility] I25.84 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 CORONARY ATHEROSCLEROSIS DUE TO CALCIFIED CORONARY Diagnosis 05/10/2020 05:30:0 0 PM [facility] F41.9 Anxiety disorder, unspecified ANXIETY DISORDER, UNSPEC IFIED Diagnosis 05/10/2020 05:30:00 PM [facility] F32.9 Major depressive disorder, single episod e, unspecified MAJOR DEPRESSIVE DISORDER, SINGLE EPISODE, UNSPECI Diagnosis 05/10/2020 05:30:00 PM [facility] E03.9 Hypothyroidism, unspecified HYPOTHYROIDISM, UNSPECIFIE D Diagnosis 05/10/2020 05:30:00 PM [facility] I73.9 Peripheral vascular disease, unspecified PERIPHERAL VASCULAR DISEASE, UNSPECIFIED Diagnosis 05/10/2020 05:30:00 PM [facility] E78.00 PURE HYPERCHOLESTEROLEMIA, UNSPECIFIED P URE HYPERCHOLESTEROLEMIA, UNSPECIFIED Diagnosis 05/10/2020 05:30:[facility] 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, not elsewhere classified OT DISORDERS OF PLASMA-PROTEIN METABOLISM, NEC Diagnosis 2020 05:30:00 PM [facility] R63.0 Anorexia ANOREXIA Diagnosis 05/10/2020 05:30:00 PM [facility] R80.9 Proteinuria, unspecified PROTEINURIA, UNSPECIFIED Diag nosis 05/10/2020 05:30:00 PM [facility] R26.2 Difficulty in walking, not elsewhere cla ssified DIFFICULTY IN WALKING, NOT ELSEWHERE CLASSIFIED Diagnosis 05/10/2020 05:30:00 PM [facility] M48.061 SPINAL STENOSIS, LUMBAR REGION WITHOUT N EUROGENIC SPINAL STENOSIS, LUMBAR REGION WITHOUT NEUROGENIC Diagnosis 05/10/2020 05:30:00 PM [facility] E11.65 Type 2 diabetes mellitus with hyperglyce lee TYPE 2 DIABETES MELLITUS WITH HYPERGLYCEMIA Diagnosis 05/10/2020 05:30:[facility] E87.8 Other disorders of electroly te and fluid balance, not elsewhere classified OT DISORDERS OF ELECTROLYTE AND FLUID BALANCE, NE Diagnosis 05/10/2020 05:30:00 PM [facility] R79.89 Other specified abnormal findings of blo od chemistry OTHER SPECIFIED ABNORMAL FINDINGS OF BLOOD MEDICAL RECORD CODER Diagnosis 05/10/2020 05:30:00 PM [facility] E86.0 Dehydration DEHYDRATION Diagnosis 05/10/2020 05:30:00 PM [facility] N18.30 CHRONIC KIDNEY DISEASE, STAGE 3 UNSPECIF IED CHRONIC KIDNEY DISEASE, STAGE 3 UNSPECIFIED Diagnosis 05/10/2020 05:30:00 PM [facility] I31.3 Pericardial effusion (noninflammatory) P ERICARDIAL EFFUSION (NONINFLAMMATORY) Diagnosis 05/10/2020 05:30:00 PM [facility] E87.1 Hypo-osmolality and hyponatremia HYPO-OSMOLALITY AND HYPONATREMIA Diagnosis 05/10/2020 05:30:00 PM [facility] J44.0 Chronic obstructive pulmonar y disease with acute lower respiratory infection CHR OBSTRUCTIVE PULMON DISEASE WITH (ACUTE) LOWER Diagnosis 05/10/2020 05:30:00 PM [facility] Z20.822 CONTACT WITH AND (SUSPECTED) EXPOSURE TO COVID-19 CONTACT WITH AND (SUSPECTED) EXPOSURE TO COVID-19 Diagnosis 05/10/2020 12:22:00 PM [facility] 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 Diagnosis 05/10/2020 12:22:00 PM [facility] R74.02 ELEVATION OF LEVELS OF LACTIC ACID DEHYD ROGENASE [ ELEVATION OF LEVELS OF LACTIC ACID DEHYDROGENASE [ Diagnosis 05/10/2020 12:22:00 PM [facility] E86.1 Hypovolemia HYPOVOLEMIA Diagnosis 05/10/2020 12:22:00 PM [facility] G89.29 [id number] Other chronic pain Problem 06/30/2020 12:00: 00 AM EDT [facility] ([facility]) F17.200 [id number] Current smoker Problem 06/30/2020 12:00:00 A M EDT [facility] ([facility]) I10 Essential hypertension Essential hypertension Problem 06/23/2020 12:00:00 AM EDT [facility] ([facility]) E78.5 [id number] Dyslipidemia Problem 06/23/2020 12:00:00 AM EDT eC1 ([facility]) J43.9 [id number] Pulmonary emphysema, unspecified emphysem a type Problem 06/23/2020 12:00:00 AM EDT eCW1 ([facility]) E03.9 [id number] Hypothyroidism, unspecified type Problem 06/23/2020 12:00:00 AM EDT eCW1 ([facility]) E11.9 [id number] Type 2 diabetes mellitus without complica tions Problem 06/23/2020 12:00:00 AM EDT eC1 ([facility]) Z79.52 [id number] Current chronic use of systemic steroi ds Problem 06/23/2020 12:00:00 AM EDT [facility] ([facility]) F41.8 Anxiety depression Anxiety with depression Problem 06/23/2020 12:00:00 AM EDT [facility] ([facility]) Surgeries/Procedures Procedure Description Date Indications Data Source(s) Assistance with Respiratory Ventilation, Less than 24 Consecutive Hours, Continuous Positive Airway Pressure 06/08/2020 12:00:00 AM [facility] Transfusion of Nonautologous Red Blood C ells into Peripheral Vein, Percutaneous Approach 05/25/2020 12:00:00 AM [facility] Drainage of Bladder with Drainage Device, Via Natural or Art ificial Opening 05/16/2020 12:00:00 AM [facility] Introduction of Analgesics, Hypnotics, S edatives into Subcutaneous Tissue, Percutaneous Approach 05/16/2020 12:00:00 AM [facility] Introduction of Insulin into Subcutaneous Tissue, Percutaneo us Approach 05/10/2020 12:00:00 AM [facility] Introduction of Anti-inflammatory into R espiratory Tract, Via Natural or Artificial Opening 05/10/2020 12:00:00 AM [facility] Muscle Performance Treatment of Musculoskeletal System - Who le Body 05/10/2020 12:00:00 AM [facility] Introduction of Other Therapeutic Substa nce into Peripheral Vein, Percutaneous Approach 05/10/2020 12:00:00 AM [facility] Introduction of Other Anti-infective int o Peripheral Vein, Percutaneous Approach 05/10/2020 12:00:00 AM [facility] Spirometry 12/15/2019 12:00:00 AM JIMENA RODRIGUE[facility] ([facility], ) Results ID Date Data Source [id number] 11/28/2020 09:18:00 AM EDT [facility] Name Value Range Interpretation Code Description Data Rosa rce(s) Supporting Document(s) SARS-CoV-2 (COVID 19) NEGATIVE - SARS-CoV-2 (COVID19) [facility] This lab was ordered by [facility] a nd reported by [facility]. ID Date Data Source [id number] 11/16/2020 11:12:00 PM EDT [facility] Name Value Range Interpretation Code Description Data Rosa rce(s) Supporting Document(s) SARS coronavirus 2 RNA [Presence] in Res piratory specimen by MIRYAM with probe detection NEGATIVE [facility] This lab was ordered by [facility] a nd reported by [facility]. ID Date Data Source [id number] 11/15/2020 06:35:00 PM EDT [facility] Name Value Range Interpretation Code Description Data Rosa rce(s) Supporting Document(s) SARS coronavirus 2 RNA [Presence] in Res piratory specimen by MIRYAM with probe detection NEGATIVE [facility] This lab was ordered by [facility] a nd reported by [facility]. ID Date Data Source [id number] 11/06/2020 09:28:00 PM EDT [facility] Name Value Range Interpretation Code Description Data Rosa rce(s) Supporting Document(s) SARS-CoV-2 (COVID 19) NEGATIVE - SARS-CoV-2 (COVID19) [facility] This lab was ordered by [facility] a nd reported by [facility]. ID Date Data Source [id number] 11/06/2020 03:54:00 PM EDT [facility] Name Value Range Interpretation Code Description Data Rosa rce(s) Supporting Document(s) SARS-CoV-2 (COVID 19) NEGATIVE - SARS-CoV-2 (COVID19) [facility] This lab was ordered by [facility] a nd reported by [facility]. ID Date Data Source [id number] 11/05/2020 08:28:00 PM EDT [facility] Name Value Range Interpretation Code Description Data Rosa rce(s) Supporting Document(s) SARS coronavirus 2 RNA [Presence] in Res piratory specimen by MIRYAM with probe detection NEGATIVE [facility] This lab was ordered by [facility] a nd reported by [facility]. ID Date Data Source [id number] 10/29/2020 07:58:00 PM EDT [facility] Name Value Range Interpretation Code Description Data Rosa rce(s) Supporting Document(s) SARS coronavirus 2 RNA [Presence] in Res piratory specimen by MIRYAM with probe detection NEGATIVE [facility] This lab was ordered by [facility] a nd reported by [facility]. ID Date Data Source [id number] 10/26/2020 10:19:00 PM EDT [facility] Name Value Range Interpretation Code Description Data Rosa rce(s) Supporting Document(s) SARS coronavirus 2 RNA [Presence] in Res piratory specimen by MIRYAM with probe detection NEGATIVE [facility] This lab was ordered by [facility] a nd reported by [facility]. ID Date Data Source [id number] 10/18/2020 02:44:00 AM EDT [facility] Name Value Range Interpretation Code Description Data Rosa rce(s) Supporting Document(s) SARS-CoV-2 (COVID 19) NEGATIVE - SARS-CoV-2 (COVID19) [facility] This lab was ordered by [facility] a nd reported by [facility]. ID Date Data Source [id number] 10/12/2020 10:15:00 PM EDT [facility] Name Value Range Interpretation Code Description Data Rosa rce(s) Supporting Document(s) SARS coronavirus 2 RNA [Presence] in Res piratory specimen by MIRYAM with probe detection NEGATIVE [facility] This lab was ordered by [facility] a nd reported by [facility]. ID Date Data Source [id number] 10/11/2020 02:34:00 AM EDT [facility] Name Value Range Interpretation Code Description Data Rosa rce(s) Supporting Document(s) SARS coronavirus 2 RNA [Presence] in Res piratory specimen by MIRYAM with probe detection NEGATIVE [facility] This lab was ordered by [facility] a nd reported by [facility]. ID Date Data Source [id number] 10/07/2020 08:36:00 PM EDT [facility] Name Value Range Interpretation Code Description Data Rosa rce(s) Supporting Document(s) SARS-CoV-2 (COVID 19) NEGATIVE - SARS-CoV-2 (COVID19) [facility] This lab was ordered by [facility] a nd reported by [facility]. ID Date Data Source [id number] 10/04/2020 07:47:00 PM EDT [facility] Name Value Range Interpretation Code Description Data Rosa rce(s) Supporting Document(s) SARS coronavirus 2 RNA [Presence] in Res piratory specimen by MIRYAM with probe detection NEGATIVE [facility] This lab was ordered by [facility] a nd reported by [facility]. ID Date Data Source [id number] 10/01/2020 08:07:00 PM EDT [facility] Name Value Range Interpretation Code Description Data Rosa rce(s) Supporting Document(s) SARS coronavirus 2 RNA [Presence] in Res piratory specimen by MIRYAM with probe detection NEGATIVE [facility] This lab was ordered by [facility] a nd reported by [facility]. ID Date Data Source [id number] 09/24/2020 02:20:00 PM EDT [facility] Name Value Range Interpretation Code Description Data Rosa rce(s) Supporting Document(s) SARS coronavirus 2 RNA [Presence] in Res piratory specimen by MIRYAM with probe detection NEGATIVE [facility] This lab was ordered by [facility] a nd reported by [facility]. ID Date Data Source [id number] 09/22/2020 11:07:00 AM EDT [facility] Name Value Range Interpretation Code Description Data Rosa rce(s) Supporting Document(s) SARS-CoV-2 (COVID 19) NEGATIVE - SARS-CoV-2 (COVID19) [facility] This lab was ordered by [facility] a nd reported by [facility]. ID Date Data Source [id number] 09/02/2020 02:38:00 PM EDT [facility] Name Value Range Interpretation Code Description Data Rosa rce(s) Supporting Document(s) SARS-CoV-2 (COVID 19) NEGATIVE - SARS-CoV-2 (COVID19) [facility] This lab was ordered by [facility] a nd reported by [facility]. ID Date Data Source [id number] 08/27/2020 12:00:00 PM EDT [facility] Name Value Range Interpretation Code Description Data Rosa rce(s) Supporting Document(s) SARS coronavirus 2 RNA [Presence] in Res piratory specimen by MIRYAM with probe detection NEGATIVE [facility] This lab was ordered by [facility] a nd reported by [facility]. ID Date Data Source [id number] 08/23/2020 01:29:00 PM EDT [facility] Name Value Range Interpretation Code Description Data Rosa rce(s) Supporting Document(s) SARS-CoV-2 (COVID 19) NEGATIVE - SARS-CoV-2 (COVID19) [facility] This lab was ordered by [facility] a nd reported by [facility]. ID Date Data Source [id number] 08/17/2020 06:30:00 PM EDT [facility] Name Value Range Interpretation Code Description Data Rosa rce(s) Supporting Document(s) SARS coronavirus 2 RNA [Presence] in Res piratory specimen by MIRYAM with probe detection NEGATIVE [facility] This lab was ordered by [facility] a nd reported by [facility]. ID Date Data Source [id number] 08/13/2020 01:19:00 AM EDT [facility] Name Value Range Interpretation Code Description Data Rosa rce(s) Supporting Document(s) SARS coronavirus 2 RNA [Presence] in Res piratory specimen by MIRYAM with probe detection NEGATIVE [facility] This lab was ordered by [facility] a nd reported by [facility]. ID Date Data Source [id number] 06/14/2020 04:54:00 PM EDT [facility] Patient: ELA PONCEatio jayjay Report - [facility].VisitID: [id number] [place] [address] [phone], FRegistration Date/Time: 05/10/2020 11:01 Weight:52.1 kg (E). Height/Length:62 inches (E). BMI:21 PAST HISTORYProblems:Diabetes Mellitus.COPD - Chronic Obstructive Pulmonary Disease.Constipation.Pneumonia.Lung Disease.Hypertension. 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 FAMILY HISTORYNegative. No significant family medical history. (Electronically signed by Sebastian Kingston 05/10/2020 18:30) Name Value Range Interpretation Code Description Data Rosa rce(s) Supporting Document(s) ID Date Data Source [id number] 06/14/2020 03:44:00 PM EDT [facility] Name Value Range Interpretation Code Description Data Rosa rce(s) Supporting Document(s) SARS-CoV-2 (COVID 19) NEGATIVE - SARS-CoV-2 (COVID19) [facility] This lab was ordered by [facility] a nd reported by [facility]. ID Date Data Source [id number] 06/12/2020 11:27:00 AM EDT [address] [id number] NOTE FOLLOW UPPATIENT NAME: KRISELASALLY VIVAR PHYSICIAN: MICHAEL WANG MDAUTHOR: Selma Caballero. DATE: 05/18/20 MR#: [id number] NOTE DATE: 06/12/20 RM#: [id number] TIME: 1127 : 45Progress Note Follow UpSummaryPrescription filled and family and patient's request for Plavix 75 mg p.o.daily levothyroxine 75 mcg p.o. daily hydroxyzine 10 mg 3 times daily as neededfor anxiety. Lisinopril was not filled at the family's request due to renaldysfunction and hyperkalemia. I called and spoke with the pharmacist aboutthis personally at [facility] and this order is being canceled.DATE SIGNED: 06/12/20 Electronically SignedTIME SIGNED: 1127 CR FAJARDO Name Value Range Interpretation Code Description Data Rosa rce(s) Supporting Document(s) ID Date Data Source [id number] 06/11/2020 07:45:00 PM EDT [address] [id number] SUMMARYPATIENT NAME: ELA PONCE MR#: [id number] PHYSICIAN: MICHAEL WANG MDAUTHOR: [place] Denis DO DATE: 05/18/20 RM#: [id number] DATE: 06/11/20 : 45Summary of HospitalizationReason [facility] MRIHospital CoursePatient is 74 years old female with past medical history significant for COPD,spinal stenosis, anxiety/depression, dyslipidemia, type 2 diabetes, nicotinedependence, hypothyroidism, CKD, peripheral vascular disease and nicotinedependence who was initially admitted at [facility] for sepsis treatmentsecondary to pneumonia. Patient had extreme deconditioning, unsteady gait andfrequent falls. Patient was noted to have severe tenderness over lumbar andthoracic spine in kassidy setting of worsening CRP and leukocytosis. [facility] out disc[facility].Upon arrival at the [facility], patient refused MRI andpatient was brought back to [facility]. At [facility], patient becameagitated and combative and patient was given B52. Patient was found to have UTIwith suspision of pylonephritis. Patient started on vanco/zosyn. [facility] Patient continued on broad spectrum antibiotics whilewaiting for cultures. Attempts of MRI were not successful due to frequentagitation. MRI later was performed and demonstrated no evidence of discitis.Patient's worsening pain was likely due to subacute vertevral body fracture.MRSA screening was negative. Vanco was discontinued. CRP continuesdowntrending. Blood cultures came back negative. Patient was planned fordischarging back to [facility] to continue short-term rehab. However, therewas [...] was transfusedafter obtaining consent. Continuing waiting for [facility] short term rehab bedas per patient's [...] her son agreed [place] [facility] [place] [facility] if it is available. Case management had sent outreferrals to broaden the search. Unfortunately, patient became unhappy on 06/11/2020 with regarding to her hospitalization stay. Patient contracted her son kinza to [facility] and bring her home. Risks and benefits of AMA explained explicitl yto patient and her son. They voiced understandings of the risks and benefitsbut they insisted on signing out AMA.Decision was made to initially transfer patient to [facility] for an MRI to be doneto rule out discitis and then [facility] patient refused the MRI and patient was broughtback to [facility]. At [facility] patient became agitated and somewhatcombative sustained ecchymosis in bilateral upper extremities. Patient had ommo given B-52. Decision was made to transfer patient to [facility] for furthermanagement. In route to [facility] again for the second time patient becameagitated. At [facility] patient was also found to have UTI, CT of theabdomen and pelvis showed some questionable/possible pyelonephritis. Patientwas given vancomycin and Zosyn at [facility] and transferred to [facility].When I evaluated patient patient was completely [...] or herniation at the L1-2 level. The [id number] exit the neural foramina without compression.A diffuse [...] CompleteAdult Echocardiogram ReportName: ELA PONCE BStudy Date: 06/08/20201359CUP70WAE: 1945 Gender: FemaleAge: 74 yrs Weight: 119 [...] Fall8. Chronic obstructive pulmonary disease with hypoxia9. Bjarwvlynp27. Qkyfdxh34. Anemia of chronic kehokdi91. Nrkbrzkbykj01. HypothyroidismDiagnoses (Other)Past Pertinent History1. Diabetes2. Chronic obstructive pulmonary disease with hypoxia3. Depression4. Spinal stenosis5. Anxiety6. Anemia of chronic disease7. Hypothyroidism8. PVD (peripheral vascular disease)9. Ifottvnw56. Chronic anemiaPatient's Discharge ConditionVital SignsVital Signs-LastResult Date [...] taking the following medications:PredniSONE (PREDNISONE) 10 MG DNRHNF12 MILLIGRAM Orally DAILYReferralsOrdered ReferralsGEOR[facility] First available [id number] [place] [address] [employer] [facility], PT, INTERNATIONAL MANAGER.Time spent by provider to complete discharge > 30 minutesDATE SIGNED: 06/11/20 Electronically SignedTIME SIGNED: 2126 GEORGIA DENIS DO Name Value Range Interpretation Code Description Data Rosa rce(s) Supporting Document(s) ID Date Data Source [id number] 06/11/2020 06:31:00 PM EDT [facility] [...] [facility] GFR 24 mL/min [facility] CHLORIDE 108 mmol/L 99-110 [facility] NA 142 mmol/L 136-147 [facility] POTASSIUM 5.5 mmol/L 3.5-5.1 [facility] TCO2 24 mmol/L 20-33 [facility] ANION GAP 15.5 10.0-20.0 [facility] CA 8.3 mg/dL 8.3-10.7 [facility] ID Date Data Source [id number] 06/11/2020 04:59:00 PM EDT [facility] Name Value Range Interpretation Code Description Data Rosa rce(s) Supporting Document(s) FGLU 139 mg/dL 70-110 [facility] ID Date Data Source [id number] 06/11/2020 12:28:00 PM EDT [address] [id number] NOTEPATIENT NAME: ALFREDO PONCENCHE BATTENKEIKO PHYSICIAN: MICHAEL WANG MDAUTHOR: Shankar Denis DO. DATE: 05/18/20 MR#: [id number] NOTE DATE: 06/11/20 RM#: [id number] TIME: 1535 : 45SubjectiveEvents Since Last EntryPatient seen and examined in room today. Patient denies acute complaints.Patient is currently on 3 L nasal cannula, and patient denies any difficultybreathing. Patient does admit that she has not been drinking enough fluid likeshe did few days ago. Denies any fever or chill.ObjectiveVital SignsVital Signs-24 HRS06/10879253 9537 2023 2138 2200Temp 98.7 99.2 98.5Pulse 69 74 77Resp 13 16B/P 125/55 137/50 130/88B/P MeanPulse Ox 96 95O2 Delivery Nasal cannulaO2 Flow Rate 0DMkI03506/11000 0200 0400 0631 0804Temp 97.9 97.9 98.5 97.9Pulse 74 74Resp 17B/P 163/72 163/72B/P MeanPulse Ox 95O2 Delivery Nasal cannulaO2 Flow Rate 3YJbY82006/11927264 8891 0924 0942Temp 97.7Pulse 74 72Resp 20B/P 163/72 163/72 150/63B/P MeanPulse Ox 94O2 Delivery Nasal cannula Nasal cannulaO2 Flow Rate 3L 0OScG8Witnwp/OutputIntake/Output Summary 24 hours06/10 1900 06/11 0700Intake Total [...] evaluatePsych/Mental Status unable to evaluateResultsLaboratory DataRecent Labs-24 hours06/10732892 6548 0756 1104ChemistrySodium (136 - 147 mmol/L) 139 [...] 0.1Abs Immat Gran (auto) (0.0 - 0.1 0.55m91C9/uL)Absolute Neuts (auto) (1.2 - 7.6 11.62 Hx10E3/uL)Absolute Lymphs (auto) (1.0 - 3.5 0.27 Lx10E3/uL)Absolute Monos (auto) (0.1 - 1.0 0.11s12Y4/uL)Absolute Eos (auto) (0.1 - 0.7 x10E3/uL) 0.00 LAbsolute Basos (auto) (0.0 - 0.1 0.97r93S7/uL)Nucleated RBC % (auto) (0 %) 0Assessment/PlanProblem List1. [...] shortly after the event. Patient landed on Samplesaintck. Patient denied hitting her head.- CT head [...] codeProlong Service Time* 30 minutes of prolong mzaq-uz-ysyz time spent with patient's son, Mr. Braden.* Discussed: Currently medical management and discharge planning.VTE ProphylaxisVTE Prophylaxis: Continue heparin.DATE SIGNED: 06/11/20 Electronically SignedTIME SIGNED: 2126 GEORGIA DENIS DO Name Value Range Interpretation Code Description Data Rosa rce(s) Supporting Document(s) ID Date Data Source [id number] 06/11/2020 11:09:00 AM EDT [facility] Name Value Range Interpretation Code Description Data Rosa rce(s) Supporting Document(s) FGLU 256 mg/dL 70-110 [facility] ID Date Data Source [id number] 06/11/2020 08:25:00 AM EDT [facility] Name Value Range Interpretation Code Description Data Rosa rce(s) Supporting Document(s) FGLU 384 mg/dL 70-110 [facility] ID Date Data Source [id number] 06/11/2020 05:53:00 AM [facility]T [facility] Name Value Range Interpretation Code [...] [facility] GFR 28 mL/min [facility] CHLORIDE 106 mmol/L 99-110 [facility] NA 140 mmol/L 136-147 [facility] POTASSIUM 5.2 mmol/L 3.5-5.1 [facility] TCO2 26 mmol/L 20-33 [facility] ANION GAP 13.2 10.0-20.0 [facility] CA 8.2 mg/dL 8.3-10.7 [facility] ID Date Data Source [id number] 06/11/2020 05:47:00 AM EDT [facility] Name Value Range Interpretation Code Description Data Rosa rce(s) Supporting Document(s) WBC 12.30 x10E3/uL 4.0-10.5 [facility] RBC 3.57 x10E6/uL 4.20-5.40 [facility] Hemoglobin 10.8 g/dL 12.0-16.0 [facility] Hematocrit 34.1 % 37.0-47.0 [facility] MCV 95.5 fL 81.0-99.0 [facility] MCH 30.3 pg 27.0-31.0 [facility] MCHC 31.7 g/dL 32.7-35.6 [facility] RDW 17.2 % 11.5-14.0 [facility] Platelet count 220 x10E3/uL 150-450 [facility] ital MPV 9.8 fl 6.9-9.5 [facility] Neutrophils 94.5 % 34-64 H [facility] Lymphocytes 2.2 % 25-45 L [facility] Monocytes 2.4 % 1.7-10.6 N [facility] Eosinophils 0 % 0.4-7.0 L [facility] Basophils 0.1 % 0.1-2.0 N [facility] Imm. Gran. 0.8 % 0.1-2.0 N [facility] Abs. Neutro. 11.62 x10E3/uL 1.2-7.6 [facility] Abs. Lymph. 0.27 x10E3/uL 1.0-3.5 [facility] Abs. [place]. 0.30 x10E3/uL 0.1-1.0 [facility] Abs. Eosin. 0.00 x10E3/uL 0.1-0.7 [facility] Abs. Baso. 0.01 x10E3/uL 0.0-0.1 [facility] Abs. Imm. Gran. 0.10 x10E3/uL 0.0-0.1 N [facility] spital ANRBC% 0 % 0 N [facility] DIFFERENTIAL CONFIRMED BY SLIDE REVIEW. ID Date Data Source [id number] 06/11/2020 01:54:00 AM EDT [facility] Patient: ELA PONCE Observatio n Report - [facility].VisitID: [id number] [place] [address] [phone], FRegistradelaware psychiatric center Date/Time: 05/18/2020 13:00 Weight:52.1 kg (E). Height/Length:62 [...] Name Value Range Interpretation Code Description [facility] Supporting Document(s) ID Date Data Source [id number] 06/10/2020 08:18:00 PM EDT [facility] Name Value Range Interpretation Code Description Data [facility] Supporting Document(s) GLU 313 mg/dL 70-110 [facility] Patients taking Sulfasalazine may have f alsely depressedGlucose levels. Patients taking Sulfapyridine may havefalsely elevated Glucose levels. Patients should be drawnfor Glucose before the initial administration of eitherdrug. BUN 65 mg/dL 7-23 [facility] CRE 2.010 mg/dL 0.500-1.300 [facility] GFR 26 mL/min [facility] CHLORIDE 105 mmol/L 99-110 [facility] NA 139 mmol/L 136-147 [facility] POTASSIUM 5.4 mmol/L 3.5-5.1 [facility] TCO2 26 mmol/L 20-33 [facility] ANION GAP 13.4 10.0-20.0 [facility] CA 8.0 mg/dL 8.3-10.7 [facility] ID Date Data Source [id number] 06/10/2020 10:25:00 AM EDT [address] [id number] NOTEPATIENT NAME: ELA PONCE PHYSICIAN: MICHAEL WANG MDAUTHOR: Brendan Shankar. DATE: 05/18/20 MR#: [id number] NOTE DATE: 06/10/20 RM#: [id number] TIME: 1114 [...] MeanPulse Ox 91 95 93O2 DeliveryO2 Flow SemfMdV24506/09430807 7823 1999 2015 2200Temp 99.7Pulse 74 73 70 72 73Resp 14 20 13 16B/P 122/44 121/50 128/30 128/30 119/64B/P MeanPulse Ox 94 94 95 94O2 DeliveryO2 Flow KjmkHlZ439/30 06/09 06/10 06/10 05/689700 3383 0000 0000 0200Temp 98.4 98.8Pulse 68 72Resp 13 13B/P 130/51 136/56B/P MeanPulse Ox 93 87O2 Delivery Nasal cannulaO2 Flow Rate 6HJnX248/01 06/10302073 1018 0400 0600 0600Temp 97.9 98.3 98.3Pulse 69 72Resp 13 16B/P 142/121 131/58B/P MeanPulse Ox 93 97O2 DeliveryO2 Flow UsnzJnK114/06/10 05961547 5160 0816 0818 09 03Temp 97.5Pulse 69 72 72Resp 17B/P 134/57 136/72 136/72 136/72B/P MeanPulse Ox 93O2 Delivery Nasal cannulaO2 Flow Rate 0PRaV6Uaxuln/OutputIntake/Output Summary 24 hours04/30 1900 05/01 0700Intake Total [...] evaluatePsych/Mental Status unable to evaluateResultsLaboratory DataRecent Labs-24 hours083218BnifhtgsoRbagqc (136 - 147 mmol/L) 138Potassium (3.5 - [...] sliding scale. Continue levemir. Continue consistent carbohydratediet.5. Ramno&P- Patient has been on plavix for PVD and heparin for DVT prophylaxis.- On 06/05, patient try to walk to bedside commode without notifying nursingstaffs. Patient was seen shortly after the event. Patient landed on Hoverink. Patient denied hitting her head.- CT head [...] rce(s) Supporting Document(s) ID Date Data Source [id number] 06/10/2020 06:29:00 AM EDT [facility] Name Value Range Interpretation Code [...] [facility] GFR 27 mL/min [facility] CHLORIDE 102 mmol/L 99-110 [facility] NA 138 mmol/L 136-147 [facility] POTASSIUM 4.7 mmol/L 3.5-5.1 [facility] TCO2 29 mmol/L 20-33 [facility] ANION GAP 11.7 10.0-20.0 [facility] CA 8.1 mg/dL 8.3-10.7 [facility] ID Date Data Source [id number] 06/10/2020 06:13:00 AM EDT [facility] Name Value Range Interpretation Code Description Data Rosa rce(s) Supporting Document(s) WBC 10.40 x10E3/uL 4.0-10.5 [facility] RBC 3.28 x10E6/uL 4.20-5.40 [facility] Hemoglobin 9.9 g/dL 12.0-16.0 [facility] Hematocrit 31.3 % 37.0-47.0 [facility] MCV 95.4 fL 81.0-99.0 [facility] MCH 30.2 pg 27.0-31.0 [facility] MCHC 31.6 g/dL 32.7-35.6 [facility] RDW 17.4 % 11.5-14.0 [facility] Platelet count 200 x10E3/uL 150-450 [facility] ital MPV 10.0 fl 6.9-9.5 [facility] Neutrophils 96.1 % 34-64 [facility] Lymphocytes 2.7 % 25-45 [facility] Monocytes 0.7 % 1.7-10.6 [facility] Eosinophils 0 % 0.4-7.0 [facility] Basophils 0 % 0.1-2.0 L [facility] Imm. Gran. 0.5 % 0.1-2.0 [facility] Abs. Neutro. 10.00 x10E3/uL 1.2-7.6 [facility] Abs. Lymph. 0.28 x10E3/uL 1.0-3.5 [facility] Abs. [place]. 0.07 x10E3/uL 0.1-1.0 [facility] Abs. Eosin. 0.00 x10E3/uL 0.1-0.7 [facility] Abs. Baso. 0.00 x10E3/uL 0.0-0.1 [facility] Abs. Imm. Gran. 0.05 x10E3/uL 0.0-0.1 [facility] ANRBC% 0 % 0 [facility] DIFFERENTIAL CONFIRMED BY SLIDE REVIEW. ID Date Data Source [id number] 06/09/2020 04:31:00 PM EDT [facility] Exam Number: [id number] Echocardiogr am ReportName: ELA PONCE BStudy Date: 06/08/20202085FCI03WZA: 1945 Gender: FemaleAge: 74 yrs Weight: 119 [...] with elevated RA pressure.Report electronically signed in [facility] by: Fang Obrien MD, MPH,FACC on 06/08/2020 05:35 PM Reported By: - FANG OBRIEN MD Signed By: FANG OBRIEN MD Name Value Range Interpretation Code Description Data Rosa rce(s) Supporting Document(s) ID Date Data Source [id number] 06/09/2020 01:00:00 PM EDT [address] [id number] NOTEPATIENT NAME: ELA PONCE PHYSICIAN: MICHAEL WANG MDAUTHOR: Shankar Denis DO. DATE: 05/18/20 MR#: [id number] NOTE DATE: 06/09/20 RM#: [id number] TIME: 1359 : 45SubjectiveEvents Since Last EntryPatient seen and examined in room today. Patient denies acute complaint.Patient requires less oxygen support. Patient responds very well withdiuretic.ObjectiveVital SignsVital Signs-24 HRS06/08 1600 1800 1810 2000Temp 97.5 98.5Pulse 70 69 71 76Resp 16 14 14 14B/P 140/54 126/77 131/55 137/53B/P MeanPulse Ox 94 95 93 95O2 Delivery Nasal cannulaO2 Flow Rate 8OrN61406/08000 2009 2118 2199 2200Temp 98.9Pulse 79 73 74Resp 30 13B/P 137/53 124/82 145/57B/P MeanPulse Ox 96 94O2 Delivery Nasal cannulaO2 Flow Rate 6HTiA13706/09076338 8358 0200 0200 0400Temp 97.9 98.7Pulse 69 72 78Resp 14 13 11B/P 126/45 137/51 144/58B/P MeanPulse Ox 90 93 90O2 DeliveryO2 Flow IzuoRjE64506/09924826 8684 0600 0800 0827Temp 97.8 97.3 99.1Pulse 80 88Resp 11 18B/P 157/63 156/56 142/52B/P MeanPulse Ox 92 93O2 DeliveryO2 Flow TfllLmN79706/09/127987 8163 0829TempPulse 82 82RespB/P 142/52 142/52 142/52B/P MeanPulse OxO2 DeliveryO2 Flow CcigBzL9Trmsag/OutputIntake/Output Summary 24 hours06/08 1900 06/09 0700Intake Total [...] shortly after the event. Patient landed on Hoverink. Patient denied hitting her head.- CT head [...] codeProlong Service Time* 30 minutes of prolong pcht-jf-atdl time spent with Patient, patient's son andcase manager lpn.* Discussed: discharge planning.VTE Proph ylaxisVTE Prophylaxis: Continue heparin.DATE SIGNED: 06/11/20 Electronically SignedTIME SIGNED: 2126 GEORGIA DENIS DO Name Value Range Interpretation Code Description Data Rosa rce(s) Supporting Document(s) ID Date Data Source [id number] 06/09/2020 08:02:00 AM EDT [facility] Name Value Range Interpretation Code Description Data Rosa rce(s) Supporting Document(s) WBC 4.59 x10E3/uL 4.0-10.5 [facility] RBC 3.22 x10E6/uL 4.20-5.40 [facility] Hemoglobin 9.8 g/dL 12.0-16.0 [facility] Hematocrit 30.8 % 37.0-47.0 [facility] MCV 95.7 fL 81.0-99.0 [facility] MCH 30.4 pg 27.0-31.0 [facility] MCHC 31.8 g/dL 32.7-35.6 [facility] RDW 17.5 % 11.5-14.0 [facility] Platelet count 185 x10E3/uL 150-450 N [facility] ital MPV 10.1 fl 6.9-9.5 [facility] SEG. NEUTROPHIL 93 % 34-64 [facility] BAND 0 % 5-11 [facility] LYMPHOCYTE 7 % 25-45 [facility] EOSINOPHILS 0 % 0-7 [facility] MONOCYTES 0 % 2-10 [facility] BASOPHILS 0 % 0-2 [facility] ATYPICAL LYMPHS 0 % 0-10 N [facility] METAMYELOCYTES 0 % 0-2 [facility] MYELOCYTES 0 % 0-2 [facility] PROMYELOCYTES 0 % 0-1 [facility] BLAST CELLS 0 % 0-1 [facility] NUCLEATED RBC'S 0 0 N [facility] al PLATELET MORPH 1+ PLT SIZE VARIES N [facility] PLATELET MORPHOLOGY EXPECTED RESULT:NORM AL = NO REMARKABLE MORPHOLOGYAny findings other than Normal will be reported and areconsidered Abnormal. The significance of Abnormal findingsare to be clinically correlated by the provider. ID Date Data Source [id number] 06/09/2020 07:55:00 AM EDT [facility] Name Value Range Interpretation Code Description Data Rosa rce(s) Supporting Document(s) GLU 305 mg/dL 70-110 [facility] Patients taking Sulfasalazine may have f alsely depressedGlucose levels. Patients taking Sulfapyridine may havefalsely elevated Glucose levels. Patients should be drawnfor Glucose before the initial administration of eitherdrug. BUN 34 mg/dL 7-23 [facility] CRE 1.220 mg/dL 0.500-1.300 [facility] GFR 46 mL/min [facility] CHLORIDE 105 mmol/L 99-110 [facility] NA 142 mmol/L 136-147 [facility] POTASSIUM 5.2 mmol/L 3.5-5.1 [facility] TCO2 28 mmol/L 20-33 [facility] ANION GAP 14.2 10.0-20.0 [facility] CA 8.0 mg/dL 8.3-10.7 [facility] ID Date Data Source [id number] 06/08/2020 10:58:00 AM EDT [address] [id number] NOTEPATIENT NAME: ELA PONCE PHYSICIAN: MICHAEL WANG MDAUTHOR: Shankar Denis DO. DATE: 05/18/20 MR#: [id number] NOTE DATE: 06/08/20 RM#: [id number] TIME: 1340 : 45SubjectiveEvents Since Last EntryPatient seen and examined in the room today. Currently patient's oxygenation ismaintained with 6L NC. Patient's mentation is improving. Patient is complainingabout her chronic back pain. No recurrence of hypoglycemia. Patient stated shehad similar episode at home.ObjectiveVital SignsVital Signs-24 HRS06/07039247 1078 1800 1999 2001Temp 97.8 97.2 96.8 98.7Pulse 75 95 62 68Resp 20 24 13 16B/P 119/90 119/56 115/48 142/61B/P MeanPulse Ox 93 95 95 90 91O2 Delivery Nasal cannula BiPAPO2 Flow Rate 4L 2KJlY77906/07040 2201 0000 0200 02 00Temp 98.4Pulse 66 67 74 68Resp 13 21 13B/P 138/52 118/45 145/61 148/54B/P MeanPulse Ox 92 87 88O2 DeliveryO2 Flow FcelOzU32806/08426917 4384 0615 0800 0819Temp 98.4 98.2Pulse 80 79Resp 21 16B/P 154/60 127/90 136/64B/P MeanPulse Ox 85 94O2 DeliveryO2 Flow IrhkPvI83506/08865314 1669 0823 0919TempPulse 88 88RespB/P 136/64 136/64 136/64B/P MeanPulse OxO2 Delivery Nasal cannulaO2 Flow Rate 5YcA6Ktsflw/OutputIntake/Output Summary 24 hours06/07 1900 06/08 0700Intake Total [...] oriented x 3Psych/Mental Status anxiousResultsLaboratory DataRecent Labs-24 hours06/07583107 9013 1736Blood GasABG pH (7.360 - 7.440) 7.406ABG [...] 12.0C-Reactive Protein (0.00 - 0.49 mg/dL) 5.97 JVvk-W-Tgzgtrhranb Pept (0 - 125 pg/mL) 5531 HTotal [...] % (auto) (0 %) 0RBC Morphology 1+ MLEXWEVGHOCS6206/076 1736 1758Blood GasABG pH CancelledABG pCO2 CancelledABG [...] ClearUrine pH (5.0 - 8.0) 5.5Ur Specific [place] (1.010 - 1.025) 1.012Urine Protein (Negative) 3+Urine Ketones (NEGATIVE) NegativeUrine Blood (NEGATIVE) NegativeUrine Nitrite (Negative) NegativeUr Bilirubin Confirm (NEGATIVE) NegativeUrine Urobilinogen (0.2 - 1.0 mg/dL) 0.2Urine Leukocytes (Negative) NegativeUrine RBC (NONE SEEN) 0-2 RBCs/HPFUrine WBC (NONE SEEN) 0-2 WBCs/HPFUrine Bacteria (NONE SEEN) FewUrine Casts (NONE SEEN) FEW GRANULAR/LPFFEW HYALINE/LPFUrine Mucus (NONE SEEN) FewUrine Glucose (NEGATIVE) Xvhqbydq71/144428KvbkplsveAxtczz (136 - 147 mmol/L) 144Potassium (3.5 - [...] the patient.Advance Care Planning* 20 minutes of vssv-nj-fqvh time spent for Advance Care Planning inexplanation/discussion of Advance Directives.* Following people are present during the meeting: Patient and her son in ICU.* Decisions reached: Full code.Prolong Service Time* 30 minutes of prolong krti-jh-zxcx time spent with Patient, Patient's son,case management.* Discussed: Subacute rehab. Transition to correction if patient fails rehab.Consider rehab facility in [place], [facility] and [facility].VTE ProphylaxisVTE Prophylaxis: Continue heparin.DATE SIGNED: 06/11/20 Electronically SignedTIME SIGNED: 2126 GEORGIA DENIS DO Name Value Range Interpretation Code Description Data Rosa rce(s) Supporting Document(s) ID Date Data Source [id number] 06/08/2020 06:05:00 AM EDT [facility] Name Value Range Interpretation Code Description Data Rosa rce(s) Supporting Document(s) WBC 6.77 x10E3/uL 4.0-10.5 [facility] RBC 3.38 x10E6/uL 4.20-5.40 [facility] Hemoglobin 10.2 g/dL 12.0-16.0 [facility] Hematocrit 32.0 % 37.0-47.0 [facility] MCV 94.7 fL 81.0-99.0 [facility] MCH 30.2 pg 27.0-31.0 [facility] MCHC 31.9 g/dL 32.7-35.6 [facility] RDW 17.5 % 11.5-14.0 [facility] Platelet count 170 x10E3/uL 150-450 N [facility] ital MPV 9.7 fl 6.9-9.5 [facility] Neutrophils 82.7 % 34-64 [facility] Lymphocytes 6.4 % 25-45 [facility] Monocytes 9.2 % 1.7-10.6 [facility] Eosinophils 1.3 % 0.4-7.0 [facility] Basophils 0.1 % 0.1-2.0 [facility] Imm. Gran. 0.3 % 0.1-2.0 [facility] Abs. Neutro. 5.60 x10E3/uL 1.2-7.6 [facility] Abs. Lymph. 0.43 x10E3/uL 1.0-3.5 [facility] Abs. [place]. 0.62 x10E3/uL 0.1-1.0 [facility] Abs. Eosin. 0.09 x10E3/uL 0.1-0.7 [facility] Abs. Baso. 0.01 x10E3/uL 0.0-0.1 [facility] Abs. Imm. Gran. 0.02 x10E3/uL 0.0-0.1 N [facility] spital ANRBC% 0 % 0 [facility] DIFFERENTIAL CONFIRMED BY SLIDE REVIEW. ID Date Data Source [id number] 06/08/2020 06:03:00 AM EDT [facility] Name Value Range Interpretation Code Description Data Rosa rce(s) Supporting Document(s) MAGNESIUM 1.8 mg/dL 1.6-2.6 [facility] ID Date Data Source [id number] 06/08/2020 06:03:00 AM EDT [facility] Name Value Range Interpretation Code Description Data Rosa rce(s) Supporting Document(s) GLU 141 mg/dL 70-110 [facility] Patients taking Sulfasalazine may have f alsely depressedGlucose levels. Patients taking Sulfapyridine may havefalsely elevated Glucose levels. Patients should be drawnfor Glucose before the initial administration of eitherdrug. BUN 30 mg/dL 7-23 [facility] CRE 0.913 mg/dL 0.500-1.300 [facility] GFR > 60 mL/min [facility] CHLORIDE 108 mmol/L 99-110 [facility] NA 144 mmol/L 136-147 [facility] POTASSIUM 4.5 mmol/L 3.5-5.1 [facility] TCO2 30 mmol/L 20-33 [facility] ANION GAP 10.5 10.0-20.0 [facility] CA 8.1 mg/dL 8.3-10.7 L [facility] ID Date Data Source [id number] 06/08/2020 12:43:00 AM EDT [place], [place] [address]CROSS COVERAGE PROGRESS NOTEPATIENT NAME: ELA PONCE PHYSICIAN: MICHAEL WANG MDAUTHOR: David GA,S. : 45ADM. DATE: 05/18/20 MR#: [id number] NOTE DATE: 06/08/20 RM#: [id number] TIME: 46 HistoryNOCTURNALIST CROSS COVERAGE NOTEThis is a 74-year-old female with a known past medical history ofCOPD, diabetes, hypertension, spinal stenosis initially transferred from [facility] to [facility] on May 18, 2020 for persistent [...] for active diuresis.@ 8:36 pm-was notified by TEST BORE HELPER that patient capillary blood glucose was 77and [...] till morning when her son (Doni from [place], [place]) arrives to changeher CODE STATUS to [...] Ox 92O2 Delivery Nasal cannulaO2 Flow Rate 3OCuC03506/07015 1022 1424 1638 1800Temp 98.7 97.8 97.2 96.8Pulse 80 75 95 62Resp 22 20 24 13B/P 119/88 119/90 119/56 115/48B/P MeanPulse Ox 94 93 95 95O2 Delivery Nasal cannula Nasal cannula BiPAPO2 Flow Rate 3L 4L 2HQsA09006/07620773 4753 204 2201Temp 98.7Pulse 68 66 67Resp 16 13B/P 142/61 138/52 118/45B/P MeanPulse Ox 90 91 92O2 DeliveryO2 Flow GswrIsK6Fhrhxn/OutputIntake/Output Summary 24 hours06/07 1900 06/08 0700Intake TotalOutput [...] patient, son (Doni (via telephone))Case discussed with TEST BORE HELPER- KateCritical Care Time* Based on my evaluation, the patient has the above life-threateningconditions.* I have personally provided [35 ] minutes of critical care time exclusive ofbillable procedures caring for the patient.Advance Care Planning* [14 ] minutes of zdwu-br-tive time spent for Advance Care Planning inexplanation/discussion of Advance Directives.* Decisions reached: [ PATIENT WOULD LIKE TO RESCIND CURRENT MOLST FORM TO DNR/DNI- HOWEVER WILL WAIT FOR HER SON TO ARRIVE THIS MORNING].VTE ProphylaxisVTE Prophylaxis: [ heparin sq].DATE SIGNED: 06/08/20 Electronically SignedTIME SIGNED: 730 JAMIR ALLEN MD Name Value Range Interpretation Code Description Data Rosa rce(s) Supporting Document(s) ID Date Data Source [id number] 06/07/2020 09:13:00 PM EDT [facility] O2 % or Liter Flow: 4L Name [...] N [facility] CO 0.3 % [facility] CARBOXYHEMOGLOBIN INTERPRET ATION % TOTAL HEMOGLOBIN NONSMOKER: <2% AVERAGE SMOKER: 4-5% 1-2 PACKS/DAY HEAVY SMOKER 8-12% >2 PACKS/DAY POTENTIALLY TOXIC: >15% ID Date Data Source [id number] 06/08/2020 01:48:00 PM EDT [address] [id number] NOTEPATIENT NAME: ELA PONCE BATTENKEIKO PHYSICIAN: MICHAEL WANG MDAUTHOR: Shankar Denis DO. DATE: 05/18/20 MR#: [id number] NOTE DATE: 06/07/20 RM#: [id number] TIME: 1415 [...] Delivery Nasal cannula BiPAPO2 Flow Rate 4L 0ZGfE83906/07040 2201 0000 0200 0200Temp 98.4Pulse 66 67 74 68Resp 13 21 13B/P 138/52 118/45 145/61 148/54B/P MeanPulse Ox 92 87 88O2 DeliveryO2 Flow MytqIxV50606/08400 0400 0615 0630 0645Temp 98.4Pulse 80 79 83 81Resp 21 16 18 15B/P 154/60 127/90 162/61 146/56B/P MeanPulse Ox 85 94 91 94O2 DeliveryO2 Flow XeanSpR76506/08700 0700 0715 0730 0745TempPulse 87 79 78 86Resp 16 16 15 17B/P 174/60 139/51 135/54 161/64B/P MeanPulse Ox 89 94 94 92O2 DeliveryO2 Flow EatlTbI01806/08800 0815 0815 0819 0820Temp 98.2Pulse 87Resp 23B/P 136/64 136/64 136/64B/P MeanPulse Ox 93O2 DeliveryO2 Flow HnriVuO67006/08820 0823 0845 0900 0915TempPulse 88 88 86 85 77Resp 19 17 17B/P 136/64 136/64 172/65 166/63 151/59B/P MeanPulse Ox 96 94 95O2 DeliveryO2 Flow PwplSjF44706/08919 0930 0930 0945 1000TempPulse 76 73 73Resp 17 16 12B/P 148/56 131/52 141/50B/P MeanPulse Ox 92 95 96O2 Delivery Nasal cannulaO2 Flow Rate 6LzV74306/08015 1030 1045 1045 1100TempPulse 75 75 72 70Resp 15 23 15 17B/P 140/118 142/58 144/53 142/55B/P MeanPulse Ox 93 93 95 95O2 DeliveryO2 Flow BxztNfP64706/08115 1130 1145 1200 1200TempPulse 72 70 71 72Resp 15 16 15 18B/P 125/42 121/52 119/52 130/48B/P MeanPulse Ox 94 94 91 93O2 DeliveryO2 Flow AdnvVqV68906/08215 1230 1245TempPulse 73 71 72Resp 13 21 16B/P 100/79 140/51 125/47B/P MeanPulse Ox 93 93 90O2 DeliveryO2 Flow PbbsNhV0Cyiotn/OutputIntake/Output Summary 24 hours06/07 1900 06/08 0700Intake Total [...] Status unable to evaluateResultsLaboratory DataRecent Labs- 24 hours06/07884069 2778 1736Blood GasABG pH (7.360 - 7.440) 7.406ABG [...] 12.0C-Reactive Protein (0.00 - 0.49 mg/dL) 5.97 CErk-Q-Zmihzszjkux Pept (0 - 125 pg/mL) 5531 HTotal [...] % (auto) (0 %) 0RBC Morphology 1+ QHDLKQJSEHGI0806/076 1736 1758Blood GasABG pH CancelledABG pCO2 CancelledABG [...] ClearUrine pH (5.0 - 8.0) 5.5Ur Specific [place] (1.010 - 1.025) 1.012Urine Protein (Negative) 3+Urine Ketones (NEGATIVE) NegativeUrine Blood (NEGATIVE) NegativeUrine Nitrite (Negative) NegativeUr Bilirubin Confirm (NEGATIVE) NegativeUrine Urobilinogen (0.2 - 1.0 mg/dL) 0.2Urine Leukocytes (Negative) NegativeUrine RBC (NONE SEEN) 0-2 RBCs/HPFUrine WBC (NONE SEEN) 0-2 WBCs/HPFUrine Bacteria (NONE SEEN) FewUrine Casts (NONE SEEN) FEW GRANULAR/LPFFEW HYALINE/LPFUrine Mucus (NONE SEEN) FewUrine Glucose (NEGATIVE) Ppcszaee29/746095BbsvaortyEhoapr (136 - 147 mmol/L) 144Potassium (3.5 - [...] rce(s) Supporting Document(s) ID Date Data Source [id number] 06/07/2020 06:27:00 PM EDT [facility] Name Value Range Interpretation Code Description Data Rosa rce(s) Supporting Document(s) URINE COLOR Yellow [facility] UAPR Clear [facility] UGLU Negative NEGATIVE [facility] URINE BILIRUBIN [facility] Negative NEGATIVE [facility] USG 1.012 1.010-1.025 [facility] UBLO Negative NEGATIVE [facility] UpH 5.5 5.0-8.0 [facility] UPRO 3+ Negative [facility] UUB 0.2 mg/dL 0.2-1.0 [facility] UNIT Negative Negative [facility] ULEU Negative Negative [facility] ID Date Data Source [id number] 06/07/2020 06:27:00 PM EDT [facility] Name Value Range Interpretation Code Description Data Rosa rce(s) Supporting Document(s) URINE RBC 0-2 RBCs/HPF NONE SEEN [facility] URINE WBC 0-2 WBCs/HPF NONE SEEN [facility] URINE BACTERIA Few NONE SEEN [facility] l URINE EPI. Rare NONE SEEN [facility] FEW GRANULAR/LPFFEW HYALINE/LPF UMUCUS Few NONE SEEN [facility] ID Date Data Source [id number] 06/07/2020 05:46:00 PM EDT [facility] Ex[facility] Number: [id number] OF EXAMINATIO N: 06/07/2020 16:29 EDTCT ANGIO [...] rce(s) Supporting Document(s) ID Date Data Source [id number] 06/07/2020 05:39:00 PM EDT [facility] Exam Number: [id number] OF EXAMINATIO N: 06/07/2020 16:29 EDTCT BRAIN W/O CONTRASTINDICATION: Altered mental status, fallCOMPARISON: None.This CT exam was performed using the following dose reductiontechniques: Automated exposure control, adjustment of mA and/or kVaccording to the patient's size, and use of iterative reconstructiontechnique.TECHNIQUE: Axial images were obtained from the ehath magnum to thevertex.FINDINGS: The basal cisterns cortical [...] rce(s) Supporting Document(s) ID Date Data Source [id number] 06/07/2020 06:19:00 PM EDT [facility] Name Value Range Interpretation Code Description Data Rosa rce(s) Supporting Document(s) C-REACTIVE PROT 5.97 mg/dL 0.00-0.49 [facility] ID Date Data Source [id number] 06/07/2020 06:19:00 PM EDT [facility] Name Value Range Interpretation Code Description Data Rosa rce(s) Supporting Document(s) NT-PROBNP 5531 pg/mL 0-125 H [facility] ID Date Data Source [id number] 06/07/2020 06:19:00 PM EDT [facility] Name Value Range Interpretation Code Description Data Rosa rce(s) Supporting Document(s) GLU 36 mg/dL 70-110 [facility] Patients taking Sulfasalazine may have f alsely depressedGlucose levels. Patients taking Sulfapyridine may havefalsely elevated Glucose levels. Patients should be drawnfor Glucose before the initial administration of eitherdrug. BUN 34 mg/dL 7-23 H [facility] CRE 0.932 mg/dL 0.500-1.300 [facility] GFR > 60 mL/min [facility] CHLORIDE 109 mmol/L 99-110 [facility] NA 144 mmol/L 136-147 [facility] POTASSIUM 4.1 mmol/L 3.5-5.1 [facility] TCO2 28 mmol/L 20-33 [facility] ANION GAP 11.1 10.0-20.0 [facility] CA 8.3 mg/dL 8.3-10.7 [facility] ALKALINE PHOS 205 U/L 45-117 H [facility] TP 5.4 g/dL 6.0-7.8 L [facility] ALB 2.4 g/dL 3.5-5.0 [facility] ESRD Dialysis patient Albumin reference range: 2.9-4.4 g/dL GL 3.0 g/dL 2.3-3.5 [facility] A/G 0.8 1.0-2.5 [facility] T. BILIRUBIN 0.4 mg/dL 0.1-1.1 [facility] The Dimension [place] Total Bilirubin is n ot recommended forpatients undergoing treatment with eltrombopag (Promacta)due to the potential for falsely elevated results. ALTI 19 U/L 6-54 [facility] Patients taking Sulfasalazine and/or Sul fapyridine may havefalsely depressed ALT levels. Patients should be drawn forALT before the initial administration of either drug. AST 20 U/L 6-38 [facility] Patients taking Sulfasalazine and/or Sul fapyridine may havefalsely depressed AST levels. Patients should be drawn forAST before the initial administration of either drug. ID Date Data Source [id number] 06/07/2020 06:15:00 PM EDT [facility] Name Value Range Interpretation Code Description Data Rosa rce(s) Supporting Document(s) TROPONIN HS 33.3 ng/L 3.0-82.3 [facility] ID Date Data Source [id number] 06/07/2020 06:15:00 PM EDT [facility] Name Value Range Interpretation Code Description Data Rosa rce(s) Supporting Document(s) LACTIC ACID COMFORT 0.4 mmol/L 0.4-2.0 [facility] Date Data Source [id number] 06/07/2020 06:14:00 PM EDT [facility] Name Value Range Interpretation Code Description Data Rosa rce(s) Supporting Document(s) AMMONIA 12.0 umol/L 11-32 [facility] Patients taking Sulfasalazine may have f alselyelevated Ammonia results. Patients taking Sulfapyridine mayhave falsely depressed Ammonia levels. Patients should bedrawn for Ammonia before the initial administration ofeither drug. ID Date Data Source [id number] 06/07/2020 06:04:00 PM EDT [facility] Name Value Range Interpretation Code Description Data Rosa rce(s) Supporting Document(s) WBC 9.98 x10E3/uL 4.0-10.5 [facility] RBC 3.08 x10E6/uL 4.20-5.40 L [facility] Hemoglobin 9.3 g/dL 12.0-16.0 [facility] Hematocrit 29.2 % 37.0-47.0 [facility] MCV 94.8 fL 81.0-99.0 [facility] MCH 30.2 pg 27.0-31.0 [facility] MCHC 31.8 g/dL 32.7-35.6 [facility] RDW 17.5 % 11.5-14.0 H [facility] Platelet count 177 x10E3/uL 150-450 [facility] ital MPV 9.8 fl 6.9-9.5 [facility] Neutrophils 86.7 % 34-64 [facility] Lymphocytes 3.9 % 25-45 [facility] Monocytes 8.3 % 1.7-10.6 N [facility] Eosinophils 0.4 % 0.4-7.0 [facility] Basophils 0.3 % 0.1-2.0 [facility] Imm. Gran. 0.4 % 0.1-2.0 [facility] Abs. Neutro. 8.65 x10E3/uL 1.2-7.6 [facility] Abs. Lymph. 0.39 x10E3/uL 1.0-3.5 L [facility] Abs. [place]. 0.83 x10E3/uL 0.1-1.0 N [facility] l Abs. Eosin. 0.04 x10E3/uL 0.1-0.7 L [facility] Abs. Baso. 0.03 x10E3/uL 0.0-0.1 N [facility] l Abs. Imm. Gran. 0.04 x10E3/uL 0.0-0.1 N [facility] spital ANRBC% 0 % 0 N [facility] DIFFERENTIAL CONFIRMED BY SLIDE REVIEW. RBC MORPHOLOGY 1+ ANISOCYTOSIS N [facility] ospital RBC MORPHOLOGY EXPECTED RESULTS: NORMAL = NORMOCHROMIC, NORMOCYTIC CELLSAny findings other than Normal will be reported and areconsidered Abnormal. The significance of Abnormalfindings are to be clinically correlated by the provider. ID Date Data Source [id number] 06/07/2020 04:04:00 PM EDT [facility] Exam Number: [id number] OF EXAMINATIO N: 06/07/2020 15:20 EDTCHEST SINGLE [...] rce(s) Supporting Document(s) ID Date Data Source [id number] 06/07/2020 03:46:00 PM EDT [facility] O2 % or Liter Flow: 6L Name Value Range Interpretation Code Description Data Rosa rce(s) Supporting Document(s) PO2 69.0 mmHg 80-100 [facility] PCO2 45.3 mmHg 35-50 [facility] PH 7.406 7.360-7.440 [facility] HCO3(ABG) 27.8 mmol/L 20-33 [facility] %SATO2 92.9 % 95-100 [facility] BASE EXCESS 2.6 mmol/L -3 TO +3 [facility] DEVICE/FIO2 100% [facility] tHb 11.6 g/dL 12-18 [facility] FO2Hb 91.9 % 94.0-97.0 [facility] FMETHb 0.6 % 0.0-1.5 [facility] CO 0.5 % [facility] CARBOXYHEMOGLOBIN INTERPRET ATION % TOTAL HEMOGLOBIN NONSMOKER: <2% AVERAGE SMOKER: 4-5% 1-2 PACKS/DAY HEAVY SMOKER 8-12% >2 PACKS/DAY POTENTIALLY TOXIC: >15% ID Date Data Source [id number] 06/07/2020 12:50:00 PM EDT [facility] Name Value Range Interpretation Code Description Data Rosa rce(s) Supporting Document(s) FGLU 110 mg/dL 70-110 N [facility] ID Date Data Source [id number] 06/07/2020 03:52:00 PM EDT [facility] Name Value Range Interpretation Code Description Data Rosa rce(s) Supporting Document(s) FGLU 143 mg/dL 70-110 [facility] ID Date Data Source [id number] 06/07/2020 05:23:00 PM EDT [facility] Name Value Range Interpretation Code Description Data Rosa rce(s) Supporting Document(s) FGLU 228 mg/dL 70-110 H [facility] ID Date Data Source [id number] 06/07/2020 06:08:00 AM EDT [facility] Name Value Range Interpretation Code Description Data Rosa rce(s) Supporting Document(s) FGLU 210 mg/dL 70-110 H [facility] ID Date Data Source [id number] 06/06/2020 08:18:00 PM EDT [facility] Name Value Range Interpretation Code Description Data Rosa rce(s) Supporting Document(s) FGLU 69 mg/dL 70-110 L [facility] ID Date Data Source [id number] 06/06/2020 08:04:00 PM EDT [facility] Name Value Range Interpretation Code Description Data Rosa rce(s) Supporting Document(s) FGLU 69 mg/dL 70-110 [facility] ID Date Data Source [id number] 06/06/2020 09:36:00 PM EDT [facility] Name Value Range Interpretation Code Description Data Rosa rce(s) Supporting Document(s) FGLU 150 mg/dL 70-110 [facility] ID Date Data Source [id number] 06/06/2020 10:41:00 AM EDT [facility] [place] [address] [id number] NOTEPATIENT NAME: COUTURE,ELA BATTENDING PHYSICIAN: MICHAEL WANG, MDAUTHOR: Shankar Denis DO. DATE: 05/18/20 MR#: [id number] NOTE DATE: 06/06/20 RM#: [id number] TIME: 1050 : 45SubjectiveEvents Since Last EntryPatient seen and examined in the room today. No fever or chill. Denies anyworsening of the breathing.ObjectiveVital SignsVital Signs-24 HRS06/[id number] 5327 2127 2199 0652Temp 98.2 98.9 98.0Pulse 67 81 85 79Resp 17 17 17B/P 111/54 120/68 138/57 120/57B/P MeanPulse Ox 93 92 91O2 Delivery Nasal cannula Nasal cannulaO2 Flow Rate 3L 1WUiM24506/06823 0825 0826 0826TempPulse 91 91RespB/P 121/66 121/66 121/66 121/66B/P MeanPulse OxO2 DeliveryO2 Flow TfujEpT2Nuivsn/OutputIntake/Output Summary 24 hours06/05 1900 06/06 0700Intake Total [...] no lymphadenopathyPsych/Mental Status mood neutralResultsLaboratory DataRecent Labs-24 hours06/05215246 9300 1318 1708 2019ChemistryPOC Glucose (70 - 110 mg/dL) 62 L 61 L 151 H 127 H 208 H006/06495701 0631ChemistrySodium (136 - 147 mmol/L) 143Potassium (3.5 [...] for discharge: [facility]. [facility]. PneumoniaStatus AcuteA&P- S/P course of [...] duloxetine. Continue Buspar.12. AnxietyStatus AcuteA&P- Continue BuSpar, lkwgqqzapi80. PVD (peripheral vascular disease)Status ChronicA&P-History of stent placement.-Continue Plavix, ovckxa67. DebilityStatus ChronicA&P-Patient needs subacute rehab.15. HypoalbuminemiaStatus ChronicA&P- Continue Ensure supplement.-Encourage oral intake as tolerated.16. Polysubstance abuseStatus ChronicA&P-Continue thiamine, folic acid and vxgvmnhdnnis76. HypernatremiaStatus Nwqnfkmz34. Anemia of chronic diseaseStatus AcuteA&P-Status post 3 PRBC transfusions.- HH is maintaining.19. CandidiasisStatus AcuteA&P- Continue nystatin powder. Continue MIconazole cream.Resuscitation status Full codeDATE SIGNED: 06/11/20 Electronically SignedTIME SIGNED: 2126 [place] DENIS DO Name Value Range Interpretation Code Description Data [facility](s) Supporting Document(s) ID Date Data Source [id number] 06/06/2020 06:37:00 AM EDT [facility] Name Value Range Interpretation Code Description Data Rosa rce(s) Supporting Document(s) FGLU 236 mg/dL 70-110 [facility] ID Date Data Source [id number] 06/06/2020 06:41:00 AM EDT [facility] jer Name Value Range Interpretation Code Description Data Rosa rce(s) Supporting Document(s) MAGNESIUM 2.0 mg/dL 1.6-2.6 [facility] ID Date Data Source [id number] 06/06/2020 06:41:00 AM EDT [facility] jer Name Value Range Interpretation Code Description Data Rosa rce(s) Supporting Document(s) GLU 188 mg/dL 70-110 [facility] Patients taking Sulfasalazine may have f alsely depressedGlucose levels. Patients taking Sulfapyridine may havefalsely elevated Glucose levels. Patients should be drawnfor Glucose before the initial administration of eitherdrug. BUN 35 mg/dL 7-23 [facility] CRE 0.931 mg/dL 0.500-1.300 [facility] GFR > 60 mL/min [facility] CHLORIDE 108 mmol/L 99-110 [facility] NA 143 mmol/L 136-147 [facility] POTASSIUM 4.8 mmol/L 3.5-5.1 [facility] TCO2 27 mmol/L 20-33 [facility] ANION GAP 12.8 10.0-20.0 [facility] CA 8.5 mg/dL 8.3-10.7 [facility] ID Date Data Source [id number] 06/06/2020 05:47:00 AM EDT [facility] jer Name Value Range Interpretation Code Description Data Rosa rce(s) Supporting Document(s) WBC 8.26 x10E3/uL 4.0-10.5 [facility] RBC 3.32 x10E6/uL 4.20-5.40 L [facility] Hemoglobin 10.0 g/dL 12.0-16.0 [facility] Hematocrit 31.6 % 37.0-47.0 [facility] MCV 95.2 fL 81.0-99.0 [facility] MCH 30.1 pg 27.0-31.0 [facility] MCHC 31.6 g/dL 32.7-35.6 L [facility] RDW 17.4 % 11.5-14.0 H [facility] Platelet count 170 x10E3/uL 150-450 N [facility] ital MPV 10.3 fl 6.9-9.5 H [facility] Neutrophils 78.0 % 34-64 H [facility] Lymphocytes 8.8 % 25-45 L [facility] Monocytes 10.2 % 1.7-10.6 N [facility] Eosinophils 2.2 % 0.4-7.0 N [facility] Basophils 0.4 % 0.1-2.0 N [facility] Imm. Gran. 0.4 % 0.1-2.0 N [facility] Abs. Neutro. 6.45 x10E3/uL 1.2-7.6 N [facility] Abs. Lymph. 0.73 x10E3/uL 1.0-3.5 [facility] Abs. [place]. 0.84 x10E3/uL 0.1-1.0 [facility] Abs. Eosin. 0.18 x10E3/uL 0.1-0.7 [facility] Abs. Baso. 0.03 x10E3/uL 0.0-0.1 [facility] Abs. Imm. Gran. 0.03 x10E3/uL 0.0-0.1 [facility] [place] [facility] ANRBC% 0 % 0 N [facility] ID Date Data Source [id number] 06/06/2020 12:17:00 AM EDT [facility] Name Value Range Interpretation Code Description Data Rosa rce(s) Supporting Document(s) FGLU 208 mg/dL 70-110 [facility] ID Date Data Source [id number] 06/05/2020 09:16:00 PM EDT [facility] Name Value Range Interpretation Code Description Data Rosa rce(s) Supporting Document(s) FGLU 127 mg/dL 70-110 [facility] ID Date Data Source [id number] 06/05/2020 01:27:00 PM EDT [facility] Name Value Range Interpretation Code Description Data Rosa rce(s) Supporting Document(s) FGLU 151 mg/dL 70-110 [facility] ID Date Data Source [id number] 06/05/2020 02:57:00 PM EDT [facility] Name Value Range Interpretation Code Description Data Rosa rce(s) Supporting Document(s) FGLU 61 mg/dL 70-110 [facility] ID Date Data Source [id number] 06/05/2020 04:28:00 PM EDT [facility] Name Value Range Interpretation Code Description Data Rosa rce(s) Supporting Document(s) FGLU 62 mg/dL 70-110 [facility] ID Date Data Source [id number] 06/05/2020 10:50:00 AM EDT [facility] [address] [id number] NOTEPATIENT NAME: COUTURE,ELA BATTENDING PHYSICIAN: MICHAEL WANG MDAUTHOR: Shankar Denis DO. DATE: 05/18/20 MR#: [id number] NOTE DATE: 06/05/20 RM#: [id number] TIME: 1123 : 45SubjectiveEvents Since Last EntryPatient seen and examined in the room today. Patient still complains of herchronic back pain. No fever or chill. Denies any worsening of the breathing.ObjectiveVital SignsVital Signs-24 HRS06/04707888 9434 2140 2200 0541Temp 98.2 97.7 97.5Pulse 70 76 75 82Resp 17 18 16B/P 127/64 128/72 134/65 164/63B/P MeanPulse Ox 81 92 92O2 Delivery Nasal cannula Nasal cannula Nasal cannulaO2 Flow Rate 3L 3L 8XtO91406/05489639 2904 0728 0732TempPulse 81 81RespB/P 161/64 161/64 161/64 161/64B/P MeanPulse OxO2 DeliveryO2 Flow YvicRvG3Noirmv/OutputIntake/Output Summary 24 hours06/04 1900 06/05 0700Intake Total [...] duloxetine. Continue Buspar.12. AnxietyStatus AcuteA&P- Continue BuSpar, jghinutnbf98. PVD (peripheral vascular disease)Status ChronicA&P-History of stent placement.-Continue Plavix, gwoaox99. DebilityStatus ChronicA&P-Patient needs subacute rehab.15. HypoalbuminemiaStatus ChronicA&P- Continue Ensure supplement.-Encourage oral intake as tolerated.16. Polysubstance abuseStatus ChronicA&P-Continue thiamine, folic acid and vabrtjufzadf21. HypernatremiaStatus Qolongyg20. HyperglycemiaStatus Acute19. Anemia of chronic diseaseStatus AcuteA&P-Status post 3 PRBC transfusions.- HH is maintaining.20. CandidiasisStatus AcuteA&P-Continue nystatin powder.- MIconazole added.Additional NotesBarrier for discharge: Patient requires subacute rehab arrangement.Resuscitation status Full codeVTE ProphylaxisVTE Prophylaxis: Continue heparin.DATE SIGNED: 06/11/20 Electronically SignedTIME SIGNED: 2126 [place] DENIS DO Name Value Range Interpretation Code Description Data Rosa rce(s) Supporting Document(s) ID Date Data Source [id number] 06/05/2020 06:57:00 AM EDT [facility] Name Value Range Interpretation Code Description Data Rosa rce(s) Supporting Document(s) FGLU 261 mg/dL 70-110 [facility] ID Date Data Source [id number] 06/04/2020 07:07:00 PM EDT [facility] Name Value Range Interpretation Code Description Data Rosa rce(s) Supporting Document(s) FGLU 79 mg/dL 70-110 [facility] ID Date Data Source [id number] 06/04/2020 08:39:00 PM EDT [facility] Name Value Range Interpretation Code Description Data Rosa rce(s) Supporting Document(s) FGLU 54 mg/dL 70-110 [facility] ID Date Data Source [id number] 06/04/2020 12:11:00 PM EDT [facility] [place] [id number] NOTEPATIENT NAME: ELA PONCE BATTENDING PHYSICIAN: MICHAEL WANG, MDAUTHOR: Breezy GA, Zhang. DATE: 05/18/20 MR#: [id number] NOTE DATE: 06/04/20 RM#: [id number] TIME: 1220 : 45SubjectiveCC/Hx Present IllnessBack painEvents Since Last EntryCurrently alert oriented x3. Very poor historian, Patient comfortable,reported chronic back pain. Tolerating p.o, Denies chest pain. Afebrile. Allother review of s ystem negativeObjectiveVital SignsVital Signs-24 HRS06/03752146 6365 2104 2155 0619Temp 98.2 98.5 97.5Pulse 71 76 76 74Resp 16 16 16B/P 108/52 140/64 140/64 145/65B /P MeanPulse Ox 98O2 Delivery Nasal cannula Nasal cannulaO2 Flow Rate 3L 5SMpX16206/[id number] 9844 0749 0753TempPulse 68 68RespB/P 148/68 148/68 148/68 148/68B/P MeanPulse OxO2 DeliveryO2 Flow LyqaSeF4Wzgpyt/OutputIntake/Output Summary 24 hours06/03 1900 06/04 0700Intake Total [...] Status mood neutral, no hallucinationsResultsLaboratory DataRecent Labs-24 hours06/03003925 5770 0338 0532ChemistrySodium (136 - 147 mmol/L) 144Potassium [...] UTI (urinary tract infection)Status ResolvedA&PTreated with Zosyn dh-Xcuewo-xr urine culture.5. HLD (hyperlipidemia)Status ChronicA&PContinue statin6. Spinal [...] essential hypertension Qualified Code: I10 - Essential(primary) nyfbtxlhxafw81. CKD (chronic kidney disease)Status ChronicA&P-Monitor renal function.11. DiabetesStatus ChronicA&PComplicated with hypoglycemia and hyperglycemiaIncreased Levemir 14 units daily, continue NovoLog via protocol, closemonitoring, taper off pswezkka21. AnxietyStatus AcuteA&PContinue current wyhjjrputn70. PVD (peripheral vascular disease)Status ChronicA&PHistory of stent placement.Continue with Plavix, statin-Continue to monitor.14. DebilityStatus ChronicA&P-Supportive care-Consider PT/OT when patient is more alert.15. HypoalbuminemiaStatus ChronicA&PEncourage p.o. intake. Nutrition supplementation.Ensure p.o. 3 times daily.16. Polysubstance abuseStatus ChronicA&PThiamine, folic acid, multivitamin, no signs of yeaadcpwir21. HypernatremiaStatus ResolvedA&TVkjgjdgsn90. HyperglycemiaStatus AcuteA&a mp;PMonitor, off epkhnnj55. T1-T2 SUBACUTE FRACTUREStatus AcuteA&PPT, OT, fall precaution, pain medication as riwvvhh00. Anemia of chronic diseaseStatus AcuteA&PWorsening anemia, no signs of bleeding, transfuse 3unit PRBC with appropriateresponse. Will monitor, further work-up as udktlukfip46. CandidiasisStatus AcuteA&PTreatment as above ordered, wound careAdditional Miamu22-qywh-dzu female patient underlying medical history of COPD O2 dependent,spinal stenosis, depression, dyslipidemia, type 2 diabetes, nicotine addiction,anxiety, hypothyroidism, debility, CKD, peripheral vascular dise ase,hypoalbuminemia, polysubstance abuse, initially admitted to [facility] for right upper lobe pneumonia, sepsis, deconditioning with frequentfall, transferred given complains of back pain and worsening leukocytosis.DVT prophylaxis Heparin subcuDisposition short-term rehabResuscitation status Full codePlan discussed with patientCase discussed with rn case manager, nursing staffVTE ProphylaxisVTE Prophylaxis: Heparin subcu.DATE SIGNED: 06/04/20 Electronically SignedTIME SIGNED: 1220 SAAD FRIED MD Name Value Range Interpretation Code Description Data Rosa rce(s) Supporting Document(s) ID Date Data Source [id number] 06/04/2020 12:48:00 PM EDT [facility] Name Value Range Interpretation Code Description Data Rosa rce(s) Supporting Document(s) FGLU 183 mg/dL 70-110 [facility] ID Date Data Source [id number] 06/04/2020 09:13:00 AM EDT [facility] jer Name Value Range Interpretation Code Description Data Rosa rce(s) Supporting Document(s) FGLU 169 mg/dL 70-110 [facility] ID Date Data Source [id number] 06/04/2020 06:16:00 AM EDT [facility] jer Name Value Range Interpretation Code Description Data Rosa rce(s) Supporting Document(s) WBC 8.08 x10E3/uL 4.0-10.5 N [facility] RBC 3.67 x10E6/uL 4.20-5.40 L [facility] Hemoglobin 11.0 g/dL 12.0-16.0 L [facility] Hematocrit 34.5 % 37.0-47.0 L [facility] MCV 94.0 fL 81.0-99.0 [facility] MCH 30.0 pg 27.0-31.0 [facility] MCHC 31.9 g/dL 32.7-35.6 L [facility] RDW 17.6 % 11.5-14.0 H [facility] Platelet count 174 x10E3/uL 150-450 N [facility] ital MPV 10.0 fl 6.9-9.5 H [facility] Neutrophils 81.2 % 34-64 H [facility] Lymphocytes 7.8 % 25-45 L [facility] Monocytes 8.0 % 1.7-10.6 N [facility] Eosinophils 2.2 % 0.4-7.0 N [facility] Basophils 0.2 % 0.1-2.0 N [facility] Imm. Gran. 0.6 % 0.1-2.0 N [facility] Abs. Neutro. 6.55 x10E3/uL 1.2-7.6 [facility] Lymph. 0.63 x10E3/uL 1.0-3.5 [facility] Abs. [place]. 0.65 x10E3/uL 0.1-1.0 [facility] Abs. Eosin. 0.18 x10E3/uL 0.1-0.7 [facility] Abs. Baso. 0.02 x10E3/uL 0.0-0.1 [facility] Abs. Imm. Gran. 0.05 x10E3/uL 0.0-0.1 N [facility] spital ANRBC% 0 % 0 N [facility] ID Date Data Source [id number] 06/04/2020 05:26:00 AM EDT [facility] Name Value Range Interpretation Code Description Data Rosa rce(s) Supporting Document(s) MAGNESIUM 1.8 mg/dL 1.6-2.6 N [facility] ID Date Data Source [id number] 06/04/2020 05:26:00 AM EDT [facility] [...] [facility] CRE 1.100 mg/dL 0.500-1.300 [facility] GFR 52 mL/min [facility] CHLORIDE 111 mmol/L 99-110 H [facility] NA 144 mmol/L 136-147 [facility] POTASSIUM 4.7 mmol/L 3.5-5.1 [facility] TCO2 30 mmol/L 20-33 [facility] ANION GAP 7.7 10.0-20.0 L [facility] CA 8.2 mg/dL 8.3-10.7 [facility] ID Date Data Source [id number] 06/04/2020 04:52:00 AM EDT [facility] Name Value Range Interpretation Code Description Data Rosa rce(s) Supporting Document(s) FGLU 125 mg/dL 70-110 H [facility] ID Date Data Source [id number] 06/03/2020 07:50:00 PM EDT [facility] Name Value Range Interpretation Code Description Data Rosa rce(s) Supporting Document(s) FGLU 135 mg/dL 70-110 H [facility] ID Date Data Source [id number] 06/03/2020 01:02:00 PM EDT [facility] Name Value Range Interpretation Code Description Data Rosa rce(s) Supporting Document(s) FGLU 223 mg/dL 70-110 H [facility] ID Date Data Source [id number] 06/03/2020 08:10:00 AM EDT [address] [id number] NOTEPATIENT NAME: ELA PONCE PHYSICIAN: MICHAEL WANG MDAUTHOR: Breezy GA, Zhang. DATE: 05/18/20 MR#: [id number] NOTE DATE: 06/03/20 RM#: [id number] TIME: 818 [...] cannula Nasal cannulaO2 Flow Rate 3L 3L [id number]/917619Spwc 97.9Pulse 77Resp 18B/P 166/74B/P MeanPulse Ox 94O2 Delivery Nasal cannulaO2 Flow Rate 0HEkU0Qhflnj/OutputIntake/Output Summary 24 hours06/02 1900 06/03 0700Intake Total [...] mood neutral, no hallu cinationsResultsLaboratory DataRecent Labs-24 hours06/02737577 5788 2101 0608ChemistryPOC Glucose (70 - 110 mg/dL) [...] UTI (urinary tract infection)Status ResolvedA&PTreated with Zosyn xb-Lrdrfh-na urine culture.5. HLD (hyperlipidemia)Status ChronicA&PContinue statin6. Spinal [...] essential hypertension Qualified Code: I10 - Essential(primary) stviezmovrek48. CKD (chronic kidney disease)Status ChronicA&P-Monitor renal function.11. DiabetesStatus ChronicA&PComplicated with hypoglycemia and hyperglycemiaIncreased Levemir 14 units daily, continue NovoLog via protocol, closemonitoring, taper off wipkvipu52. AnxietyStatus AcuteA&PContinue current ildmdhlkmy68. PVD (peripheral vascular disease)Status ChronicA&PHistory of stent placement.Continue with Plavix, statin-Continue to monitor.14. DebilityStatus ChronicA&P-Supportive care-Consider PT/OT when patient is more alert.15. HypoalbuminemiaStatus ChronicA&PEncourage p.o. intake. Nutrition supplementation.Ensure p.o. 3 times daily.16. Polysubstance abuseStatus ChronicA&PThiamine, folic acid, multivitamin, no signs of gjddoucqdk14. HypernatremiaStatus ResolvedA&EOhjrprkbd76. HyperglycemiaStatus AcuteA&PMonitor, taper bbpcpdo92. T1-T2 SUBACUTE FRACTUREStatus AcuteA&PPT, OT, fall precaution, pain medication as knsnqif54. Anemia of chronic diseaseStatus AcuteA&PWorsening anemia, no signs of bleeding, transfuse 3unit PRBC with appropriateresponse. Will monitor, further work-up as outpatientAdditional Xvhuu09-bqll-upq female patient underlying medical history of COPD O2 dependent,spinal stenosis, depression, dyslipidemia, type 2 diabetes, nicotine addiction,anxiety, hypothyroidism, debility, CKD, peripheral vascular disease,hypoalbuminemia, polysubstance abuse, initially admitted to [facility] for right upper lobe pneumonia, sepsis, deconditioning with frequentfall, transferred given complains of back pain and worsening leukocytosisDVT prophylaxis Heparin subcuDisposition short-term rehabResuscitation status Full codePlan discussed with patientCase discussed with rn case manager, nursing staffVTE ProphylaxisVTE Prophylaxis: Heparin subcu.DATE SIGNED: 06/03/20 Electronically SignedTIME SIGNED: 817 SAAD FRIED MD Name Value Range Interpretation Code Description Data Rosa rce(s) Supporting Document(s) ID Date Data Source [id number] 06/03/2020 06:12:00 AM EDT [facility] Name Value Range Interpretation Code Description Data Rosa rce(s) Supporting Document(s) FGLU 315 mg/dL 70-110 H [facility] ID Date Data Source [id number] 06/02/2020 09:04:00 PM EDT [facility] Name Value Range Interpretation Code Description Data Rosa rce(s) Supporting Document(s) FGLU 309 mg/dL 70-110 H [facility] ID Date Data Source [id number] 06/02/2020 06:12:00 PM EDT [facility] Name Value Range Interpretation Code Description Data Rosa rce(s) Supporting Document(s) FGLU 344 mg/dL 70-110 H [facility] ID Date Data Source [id number] 06/02/2020 03:29:00 PM EDT [address] [id number] NOTEPATIENT NAME: ELA PONCE BATTENDING PHYSICIAN: MICHAEL WANG, MDAUTHOR: Breezy GA, Zhang. DATE: 05/18/20 MR#: [id number] NOTE DATE: 06/02/20 RM#: [id number] TIME: 1539 [...] cannula Nasal cannulaO2 Flow Rate 3L 3L [id number]/02551 0748 0749 0749 0850Temp 97.7Pulse 76 76Resp 20B/P 170/79 170/79 170/79 170/79B/P MeanPulse Ox 93O2 Delivery Nasal cannula Nasal cannulaO2 Flow Rate 3L 2EZoQ91706/02115 1334Temp 98.2Pulse 70 62Resp 17B/P 154/68 148/68B/P MeanPulse Ox 98O2 Delivery Nasal cannulaO2 Flow Rate 0FXsG7Aseehm/OutputIntake/Output Summary 24 hours06/01 1900 06/02 0700Intake Total [...] Status mood neutral, no hallucinationsResultsLaboratory DataRecent Labs-24 hours06/01593439 6743 0433 9284 1121ChemistryPOC Glucose (70 - 110 mg/dL) 191 [...] essential hypertension Qualified Code: I10 - Essential(primary) jbnsxsgbddmo93. CKD (chronic kidney disease)Status ChronicA&P-Monitor renal function.11. DiabetesStatus ChronicA&PComplicated with hypoglycemia and hyperglycemiaLevemir 10 units daily, continue NovoLog via protocol, close monitoring, ejsyshuijopxp34. AnxietyStatus AcuteA&PContinue current jooyasssgd19. PVD (peripheral vascular disease)Status ChronicA&PHistory of stent placement.Continue with Plavix, statin-Continue to monitor.14. DebilityStatus ChronicA&P-Supportive care-Consider PT/OT when patient is more alert.15. HypoalbuminemiaStatus ChronicA&PEncourage p.o. intake. Nutrition supplementation.Ensure p.o. 3 times daily.16. Polysubstance abuseStatus ChronicA&PThiamine, folic acid, multivitamin, no signs of attkgmiwiy61. HypernatremiaStatus ResolvedA&FQxtjfqlwb67. HyperglycemiaStatus AcuteA&PMonitor, taper yqratkw44. T1-T2 SUBACUTE FRACTUREStatus AcuteA&PPT, OT, fall precaution, pain medication as piuhhom38. Anemia of chronic diseaseStatus AcuteA&PWorsening anemia, no signs of bleeding, transfuse 3unit PRBC with appropriateresponse. Will monitor, further work-up as outpatientAdditional Ltjfm29-fdbv-lgd female patient underlying medical history of COPD O2 de pendent,spinal stenosis, depression, dyslipidemia, type 2 diabetes, nicotine addiction,anxiety, hypothyroidism, debility, CKD, peripheral vascular disease,hypoalbuminemia, polysubstance abuse, initially admitted to [facility] for right upper lobe pneumonia, sepsis, deconditioning with frequentfall, transferred given complains of back pain and worsening leukocytosisDVT prophylaxis Heparin subcuDisposition short-term rehabResuscitation status Full codePlan discussed with patientCase discussed with rn case manager, nursing staffVTE ProphylaxisVTE Prophylaxis: Heparin subcu.DATE SIGNED: 06/02/20 Electronically SignedTIME SIGNED: 1538 SAAD FRIED MD Name Value Range Interpretation Code Description Data Rosa rce(s) Supporting Document(s) ID Date Data Source [id number] 06/02/2020 01:01:00 PM EDT [facility] Name Value Range Interpretation Code Description Data Rosa rce(s) Supporting Document(s) FGLU 127 mg/dL 70-110 H [facility] ID Date Data Source [id number] 06/02/2020 07:28:00 AM EDT [facility] Name Value Range Interpretation Code Description Data Rosa rce(s) Supporting Document(s) FGLU 237 mg/dL 70-110 H [facility] ID Date Data Source [id number] 06/02/2020 05:41:00 AM EDT [facility] Name Value Range Interpretation Code Description Data Rosa rce(s) Supporting Document(s) Hemoglobin 10.6 g/dL 12.0-16.0 L [facility] ID Date Data Source [id number] 06/01/2020 11:28:00 PM EDT [facility] Name Value Range Interpretation Code Description Data Rosa rce(s) Supporting Document(s) FGLU 181 mg/dL 70-110 H [facility] ID Date Data Source [id number] 06/01/2020 08:53:00 PM EDT [facility] Name Value Range Interpretation Code Description Data Rosa rce(s) Supporting Document(s) FGLU 191 mg/dL 70-110 H [facility] ID Date Data Source [id number] 06/01/2020 03:15:00 PM EDT [facility] [address] [id number] NOTEPATIENT NAME: ELA PONCE PHYSICIAN: MICHAEL WANG MDAUTHOR: Selma Caballero. DATE: 05/18/20 MR#: [id number] NOTE DATE: 06/01/20 RM#: [id number] TIME: 1519 [...] Nasal cannulaO2 Flow Rate 3 l 3L 8BVaF97306/01 0625 0736 0737 0737Temp 98.1Pulse 75 75Resp 19B/P 173/74 180/90 180/90 180/90 180/90B/P MeanPulse Ox 93 94O2 Delivery Nasal cannula Nasal cannulaO2 Flow Rate 3L 2KKkK23606/01 0934TempPulse 77RespB/P 180/79B/P MeanPulse OxO2 Delivery Nasal cannulaO2 Flow Rate 4OJyV9Qleooo/OutputIntake/Output Summary 24 hours05/31 1900 06/01 0700Intake Total [...] essential hypertension Qualified Code: I10 - Essential(primary) goelgmftruib83. CKD (chronic kidney disease)Status Myuhwgq66. DiabetesStatus Thcsiyn34. AnxietyStatus Acute13. PVD (peripheral vascular disease)Status Hnanfxk12. DebilityStatus Kxabpue73. HypoalbuminemiaStatus Zdwmuoi20. Polysubstance abuseStatus Cjejlwx34. HyperglycemiaStatus Acute18. T1-T2 SUBACUTE FRACTUREStatus Acute19. Anemia [...] essential hypertension Qualified Code: I10 - Essential(primary) jogzbowlgwqz25. CKD (chronic kidney disease)Status ChronicA&PStable continue to [...] this patient at this time. [facility]will await [facility] short-term rehab bed. This plan is the patient's wishes.Resuscitation status Full codePlan discussed with patient, romeoMando discussed with rn case manager, nursing staffDATE SIGNED: 06/01/20 Electronically SignedTIME SIGNED: 1519 CR FAJARDO Name Value Range Interpretation Code Description Data Rosa rce(s) Supporting Document(s) ID Date Data Source [id number] 06/01/2020 03:18:00 PM EDT [facility] Name Value Range Interpretation Code Description Data Rosa rce(s) Supporting Document(s) FGLU 157 mg/dL 70-110 H [facility] ID Date Data Source [id number] 06/01/2020 06:19:00 AM EDT [facility] Name Value Range Interpretation Code Description Data Rosa e(s) Supporting Document(s) FGLU 215 mg/dL 70-110 H [facility] ID Date Data Source [id number] 06/01/2020 05:52:00 AM EDT [facility] Name Value Range Interpretation Code Description Data Rosa rce(s) Supporting Document(s) GLU 179 mg/dL 70-110 H [facility] Patients taking Sulfasalazine may have f alsely depressedGlucose levels. Patients taking Sulfapyridine may havefalsely elevated Glucose levels. Patients should be drawnfor Glucose before the initial administration of eitherdrug. BUN 29 mg/dL 7-23 H [facility] CRE 1.100 mg/dL 0.500-1.300 [facility] GFR 52 mL/min [facility] CHLORIDE 110 mmol/L 99-110 [facility] NA 143 mmol/L 136-147 [facility] POTASSIUM 4.0 mmol/L 3.5-5.1 [facility] TCO2 30 mmol/L 20-33 [facility] ANION GAP 7.0 10.0-20.0 [facility] CA 8.4 mg/dL 8.3-10.7 [facility] ALKALINE PHOS 191 U/L 45-117 H [facility] TP 5.9 g/dL 6.0-7.8 [facility] ALB 2.3 g/dL 3.5-5.0 [facility] ESRD Dialysis patient Albumin reference range: 2.9-4.4 g/dL GL 3.6 g/dL 2.3-3.5 [facility] A/G 0.6 1.0-2.5 [facility] T. BILIRUBIN 0.5 mg/dL 0.1-1.1 [facility] [employer] [place] Total Bilirubin is n ot recommended forpatients undergoing treatment with eltrombopag (Promacta)due to the potential for falsely elevated results. ALTI 31 U/L 6-54 [facility] Patients taking Sulfasalazine and/or Sul fapyridine may havefalsely depressed ALT levels. Patients should be drawn forALT before the initial administration of either drug. AST 33 U/L 6-38 [facility] Patients taking Sulfasalazine and/or Sul fapyridine may havefalsely depressed AST levels. Patients should be drawn forAST before the initial administration of either drug. ID Date Data Source [id number] 06/01/2020 05:52:00 AM EDT [facility] Name Value Range Interpretation Code Description Data Rosa rce(s) Supporting Document(s) MAGNESIUM 1.8 mg/dL 1.6-2.6 [facility] ID Date Data Source [id number] 06/01/2020 05:27:00 AM EDT [facility] jer Name Value Range Interpretation Code Description Data Rosa rce(s) Supporting Document(s) WBC 9.52 x10E3/uL 4.0-10.5 [facility] RBC 3.54 x10E6/uL 4.20-5.40 L [facility] Hemoglobin 10.6 g/dL 12.0-16.0 DL [facility] Delta: 7.6 on 05/31/20-499 Hematocrit 32.3 % 37.0-47.0 DL [facility] Delta: 24.1 on 05/31/20-499 MCV 91.2 fL 81.0-99.0 D [facility] Delta: 97.2 on 05/31/20 MCH 29.9 pg 27.0-31.0 [facility] MCHC 32.8 g/dL 32.7-35.6 [facility] RDW 18.0 % 11.5-14.0 H [facility] Platelet count 158 x10E3/uL 150-450 [facility] ital MPV 9.5 fl 6.9-9.5 [facility] Neutrophils 82.7 % 34-64 H [facility] Lymphocytes 7.7 % 25-45 L [facility] Monocytes 6.9 % 1.7-10.6 [facility] Eosinophils 1.7 % 0.4-7.0 [facility] Basophils 0.2 % 0.1-2.0 [facility] Imm. Gran. 0.8 % 0.1-2.0 [facility] Abs. Neutro. 7.87 x10E3/uL 1.2-7.6 [facility] Abs. Lymph. 0.73 x10E3/uL 1.0-3.5 [facility] Abs. [place]. 0.66 x10E3/uL 0.1-1.0 N [facility] Abs. Eosin. 0.16 x10E3/uL 0.1-0.7 [facility] Abs. Baso. 0.02 x10E3/uL 0.0-0.1 N [facility] Abs. Imm. Gran. 0.08 x10E3/uL 0.0-0.1 [facility] ANRBC% 0 % 0 N [facility] ID Date Data Source [id number] 06/01/2020 12:26:00 AM EDT [facility] Name Value Range Interpretation Code Description Data Rosa rce(s) Supporting Document(s) FGLU 190 mg/dL 70-110 H [facility] ID Date Data Source [id number] 05/31/2020 06:26:00 PM EDT [facility] Name Value Range Interpretation Code Description Data Rosa rce(s) Supporting Document(s) FGLU 192 mg/dL 70-110 H [facility] ID Date Data Source [id number] 05/31/2020 02:27:00 PM EDT [address] [id number] NOTEPATIENT NAME: KRIS,ELA BATTENKEIKO PHYSICIAN: MICHAEL WANG MDAUTHOR: Selma Caballero. DATE: 05/18/20 MR#: [id number] NOTE DATE: 05/31/20 RM#: [id number] TIME: 1508 [...] upset [facility]. Mild clinical dehydration is resolved.Awaiting rehab to [...] cannula Nasal cannulaO2 Flow Rate 3 3L [id number] 0831 0835 0837 0840Temp 97.8Pulse 74 75Resp 16B/P 165/72 142/58 142/58 142/58B/P MeanPulse Ox 94O2 Delivery Nasal cannula Nasal cannulaO2 Flow Rate 4L [id number]/519303ZpnyNwlak 75RespB/P 142/58B/P MeanPulse OxO2 DeliveryO2 Flow HfhbJpA1Schphh/OutputIntake/Output Summary 24 hours05/30 1900 05/31 0700Intake Total [...] essential hypertension Qualified Code: I10 - Essential(primary) hqtuwitjtfju41. CKD (chronic kidney disease)Status Encopml10. DiabetesStatus Xokxado63. AnxietyStatus Acute13. PVD (peripheral vascular disease)Status Abcuihb55. DebilityStatus Wdttswr44. HypoalbuminemiaStatus Bbhcexe00. Polysubstance abuseStatus Yupidih09. HyperglycemiaStatus Acute18. T1-T2 SUBACUTE FRACTUREStatus Acute19. Anemia [...] essential hypertension Qualified Code: I10 - Essential(primary) nqpgdfzsitez27. CKD (chronic kidney disease)Status ChronicA&PStable continue to [...] this patient at this time. Wewill await [facility] short-term rehab bed. This plan is [...] rce(s) Supporting Document(s) ID Date Data Source [id number] 05/31/2020 03:10:00 PM EDT [facility] Name Value Range Interpretation Code Description Data Rosa rce(s) Supporting Document(s) FGLU 210 mg/dL 70-110 H [facility] ID Date Data Source [id number] 05/31/2020 10:22:00 AM EDT [facility] COMMENTS TO [facility]: off am labs please Name Value Range Interpretation Code Description Data Rosa rce(s) Supporting Document(s) RETIC % 4.56 % 0.5-2.7 H [facility] RETIC ABS. # 0.11 x10E6/uL 0.02-0.15 [facility] IMM. [facility] FRAC 16.00 % 15-20 [facility] HEMO 33.9 pg 29-35 N [facility] ID Date Data Source [id number] 05/31/2020 09:15:00 AM EDT [facility] COMMENTS TO LAB: off am labs please Name Value Range Interpretation Code Description Data Roas rce(s) Supporting Document(s) SUZY 163.6 ng/mL 8.0-252.0 N [facility] ID Date Data Source [id number] 05/31/2020 08:32:00 AM EDT [facility] COM[facility] TO LAB: off am labs please Name Value Range Interpretation Code Description Data Rosa rce(s) Supporting Document(s) FE 62 ug/dL 42-175 N [facility] Patients treated with metal-binding drug s(i.e. Deferoxamine) may have depressed iron values aschelated iron may not properly react in the iron assay. UNBOUND IRON BC 127 ug/dL 130-375 [facility] TOTAL IRON BC 189.0 ug/dL 250-400 [facility] % IRON SAT. 32.8 % 30-35 N [facility] ID Date Data Source [id number] 05/31/2020 09:20:00 AM EDT [facility] jer Name Value Range Interpretation Code Description Data Rosa rce(s) Supporting Document(s) FGLU 300 mg/dL 70-110 H [facility] ID Date Data Source [id number] 06/01/2020 07:46:00 PM EDT [facility] jer Name Value Range Interpretation Code Description Data Rosa rce(s) Supporting Document(s) [id number] TRANSFUSED PRODUCT: PACKED CELLS CO UNT: 2 [facility] ID Date Data Source [id number] 06/01/2020 07:46:00 PM EDT [facility] *Clinically Significant Acute Blood [place] N *Hgb < or = to 7.0g/dL or Hct < or = to 21% N *Hgb < 8.0g/dL or Hct < 24% and PT Hemodynamically Unstable N *Hgb < 8.0 for Anemia and an Acute MD or Unstable Angina Y *Hgb < 9.0g/dL with Chronic Transfusion Therapy N *Maximum Blood Order Schedule N *Other (must indicate reason for transfusion if not above): anemia w/ CAD, COPDIrradiated? NCMV Negative? NTransfuse 2units over 3UNIT NUMBER: [id number]: YPRODUCT: LEUKO REDUCED RED BLOOD CELLSSOURCE: [facility] [employer] [facility] TYPE: A NEGATIVEVOLUME: 283MLCROSSMATCH COMPONENTS:00UNIT NUMBER: [id number]: YPRODUCT: LEUKO REDUCED RED BLOOD CELLSSOURCE: [facility] TYPE: A NEGATIVEVOLUME: 309MLCROSSMATCH COMPONENTS:00 Name Value Range Interpretation Code Description Data Rosa rce(s) Supporting Document(s) ID Date Data Source [id number] 06/01/2020 07:46:00 PM EDT [facility] *Clinically Significant Acute Blood [place] N *Hgb < or = to 7.0g/dL or Hct < or = to 21% N *Hgb < 8.0g/dL or Hct < 24% and PT Hemodynamically Unstable N *Hgb < 8.0 for Anemia and an Acute MD or Unstable Angina Y *Hgb < 9.0g/dL [...] C AND E ID Date Data Source [id number] 06/01/2020 07:46:00 PM EDT [facility] *Clinically Significant Acute Blood [place] N *Hgb < or = to 7.0g/dL or Hct < or = to 21% N *Hgb < 8.0g/dL or Hct < 24% and PT Hemodynamically Unstable N *Hgb < 8.0 for Anemia and an Acute MD or Unstable Angina Y *Hgb < 9.0g/dL with Chronic Transfusion Therapy N *Maximum Blood Order Schedule N *Other (must indicate reason for transfusion if not above): anemia w/ CAD, COPDIrradiated? NCMV Negative? NTransfuse 2units over 3 Name Value Range Interpretation Code Description Data Rosa rce(s) Supporting Document(s) BLOOD TYPE AB NEGATIVE N [facility] ANTIBODY SCREEN POSITIVE N [facility] al ID Date Data Source [id number] 05/31/2020 09:35:00 AM EDT [facility] Name Value Range Interpretation Code Description Data Rosa rce(s) Supporting Document(s) DATIgG NEGATIVE NEGATIVE [facility] ID Date Data Source [id number] 05/31/2020 06:49:00 AM EDT [facility] jer Name Value Range Interpretation Code Description Data Rosa rce(s) Supporting Document(s) MAGNESIUM 2.1 mg/dL 1.6-2.6 [facility] ID Date Data Source [id number] 05/31/2020 06:49:00 AM EDT [facility] jer Name Value Range Interpretation Code Description Data Rosa rce(s) Supporting Document(s) GLU 224 mg/dL 70-110 H [facility] Patients taking Sulfasalazine may have f alsely depressedGlucose levels. Patients taking Sulfapyridine may havefalsely elevated Glucose levels. Patients should be drawnfor Glucose before the initial administration of eitherdrug. BUN 27 mg/dL 7-23 H [facility] CRE 1.120 mg/dL 0.500-1.300 [facility] GFR 51 mL/min [facility] CHLORIDE 110 mmol/L 99-110 [facility] NA 143 mmol/L 136-147 [facility] POTASSIUM 4.5 mmol/L 3.5-5.1 [facility] TCO2 29 mmol/L 20-33 [facility] ANION GAP 8.5 10.0-20.0 L [facility] CA 8.2 mg/dL 8.3-10.7 [facility] ALKALINE PHOS 159 U/L 45-117 H [facility] TP 5.1 g/dL 6.0-7.8 [facility] ALB 2.1 g/dL 3.5-5.0 [facility] ESRD Dialysis patient Albumin reference range: 2.9-4.4 g/dL GL 3.0 g/dL 2.3-3.5 [facility] A/G 0.7 1.0-2.5 L [facility] T. BILIRUBIN 0.3 mg/dL 0.1-1.1 [facility] [employer] [place] Total Bilirubin is n ot recommended forpatients undergoing treatment with eltrombopag (Promacta)due to the potential for falsely elevated results. ALTI 26 U/L 6-54 [facility] Patients taking Sulfasalazine and/or Sul fapyridine may havefalsely depressed ALT levels. Patients should be drawn forALT before the initial administration of either drug. AST 18 U/L 6-38 N [facility] Patients taking Sulfasalazine and/or Sul fapyridine may havefalsely depressed AST levels. Patients should be drawn forAST before the initial administration of either drug. ID Date Data Source [id number] 05/31/2020 06:27:00 AM EDT [facility] Name Value Range Interpretation Code Description Data Rosa rce(s) Supporting Document(s) WBC 10.61 x10E3/uL 4.0-10.5 [facility] [facility] RBC 2.48 x10E6/uL 4.20-5.40 L [facility] Hemoglobin 7.6 g/dL 12.0-16.0 L [facility] Hematocrit 24.1 % 37.0-47.0 L [facility] MCV 97.2 fL 81.0-99.0 [facility] MCH 30.6 pg 27.0-31.0 [facility] MCHC 31.5 g/dL 32.7-35.6 L [facility] RDW 16.6 % 11.5-14.0 H [facility] Platelet count 167 x10E3/uL 150-450 N [facility] MPV 10.0 fl 6.9-9.5 H [facility] Neutrophils 84.1 % 34-64 H [facility] Lymphocytes 8.2 % 25-45 L [facility] Monocytes 5.8 % 1.7-10.6 N [facility] Eosinophils 0.8 % 0.4-7.0 N [facility] Basophils 0.3 % 0.1-2.0 N [facility] Imm. Gran. 0.8 % 0.1-2.0 N [facility] Abs. Neutro. 8.92 x10E3/uL 1.2-7.6 [facility] Abs. Lymph. 0.87 x10E3/uL 1.0-3.5 [facility] Abs. [place]. 0.62 x10E3/uL 0.1-1.0 [facility] Abs. Eosin. 0.09 x10E3/uL 0.1-0.7 [facility] Abs. Baso. 0.03 x10E3/uL 0.0-0.1 [facility] l Abs. Imm. Gran. 0.08 x10E3/uL 0.0-0.1 [facility] spital ANRBC% 0 % 0 [facility] ID Date Data Source [id number] 05/31/2020 01:23:00 AM EDT [facility] Name Value Range Interpretation Code Description Data Rosa rce(s) Supporting Document(s) URINE RBC 0-2 RBCs/HPF NONE SEEN [facility] URINE WBC 11-20 WBCs/HPF NONE SEEN [facility] l A URINE CULTURE HAS BEEN ADDED TO THIS S PECIME URINE BACTERIA Few NONE SEEN [facility] URINE EPI. Few NONE SEEN [facility] URINE YEAST Many NONE SEEN [facility] A URINE CULTURE HAS BEEN ADDED TO THIS S PECIMEN ID Date Data Source [id number] 05/31/2020 01:23:00 AM EDT [facility] jer Name Value Range Interpretation Code Description Data Rosa rce(s) Supporting Document(s) URINE COLOR Yellow [facility] UAPR Cloudy [facility] UGLU Negative NEGATIVE [facility] URINE [facility]IN [facility] Negative NEGATIVE [facility] USG 1.015 1.010-1.025 [facility] UBLO Negative NEGATIVE [facility] UpH 5.5 5.0-8.0 [facility] UPRO 3+ Negative [facility] UUB 0.2 mg/dL 0.2-1.0 [facility] UNIT Negative Negative [facility] ULEU Trace Negative [facility] ID Date Data Source [id number] 05/30/2020 11:33:00 PM EDT [facility] Name Value Range Interpretation Code Description Data Rosa rce(s) Supporting Document(s) FGLU 214 mg/dL 70-110 H [facility] ID Date Data Source [id number] 05/30/2020 04:51:00 PM EDT [facility] Name Value Range Interpretation Code Description Data Rosa rce(s) Supporting Document(s) FGLU 129 mg/dL 70-110 H [facility] ID Date Data Source [id number] 05/30/2020 02:17:00 PM EDT [address] [place], [place] [id number] NOTEPATIENT NAME: ELA PONCE PHYSICIAN: MICHAEL WANG, MDAUTHOR: Selma Caballero. DATE: 05/18/20 MR#: [id number] NOTE DATE: 05/30/20 RM#: [id number] TIME: 1426 : 45SubjectiveEvents Since Last EntryPatient seen and examined today. Chart reviewed. She did not pass a PT homesafety evaluation yesterday and is unsafe for discharge to home. PT feels sheneeds short term rehab. Patient feeling a bit fatigued today. She is quiteupset that she is not getting rehab at [facility]. Labs show some milddehydration. Will give a [...] cannula Nasal cannulaO2 Flow Rate 3L 3L 5SJdK08505/30 0930 0930 0931 0938TempPulse 82 82RespB/P 169/65 169/65 169/65 169/65 B/P MeanPulse OxO2 Delivery Nasal cannulaO2 Flow Rate 2CxT7Jbvlyg/OutputIntake/Output Summary 24 hours05/29 1900 05/30 0700Intake Total [...] essential hypertension Qualified Code: I10 - Essential(primary) eknpnobcnsuy10. CKD (chronic kidney disease)Status Fjhuifu35. DiabetesStatus Gbhiger07. AnxietyStatus Acute13. PVD (peripheral vascular disease)Status Cfxrtgc85. DebilityStatus Etedyfg33. HypoalbuminemiaStatus Fevxpzp34. Polysubstance abuseStatus Lkmuwuq33. HyperglycemiaStatus Acute18. T1-T2 SUBACUTE FRACTUREStatus Acute19. Anemia [...] essential hypertension Qualified Code: I10 - Essential(primary) bylvrfgfhkax82. CKD (chronic kidney disease)Status ChronicA&PStable continue to [...] this patient at this time. [facility]. This plan is the patient's wishes.Resuscitation status Full codePlan discussed with patientCase discussed with rn case manager, nursing staffDATE SIGNED: 05/30/20 Electronically SignedTIME SIGNED: 1426 CR TASHA FAJARDO Name Value Range Interpretation Code Description Data Rosa rce(s) Supporting Document(s) ID Date Data Source [id number] 05/30/2020 11:47:00 AM EDT [facility] Name Value Range Interpretation Code Description Data Rosa rce(s) Supporting Document(s) FGLU 325 mg/dL 70-110 H [facility] ID Date Data Source [id number] 05/30/2020 09:55:00 AM EDT [facility] Exam Number: [id number] OF EXAMINATIO N: 05/30/2020 9:04 EDTCHEST SINGLE [...] rce(s) Supporting Document(s) ID Date Data Source [id number] 05/30/2020 10:32:00 AM EDT [facility] Name Value Range Interpretation Code [...] H [facility] GFR 41 mL/min [facility] CHLORIDE 108 mmol/L 99-110 [facility] NA 141 mmol/L 136-147 [facility] POTASSIUM 4.0 mmol/L 3.5-5.1 [facility] TCO2 29 mmol/L 20-33 [facility] ANION GAP 8.0 10.0-20.0 [facility] CA 8.1 mg/dL 8.3-10.7 [facility] ALKALINE PHOS 170 U/L 45-117 H [facility] TP 5.2 g/dL 6.0-7.8 [facility] ALB 2.2 g/dL 3.5-5.0 [facility] ESRD Dialysis patient Albumin reference range: 2.9-4.4 g/dL GL 3.0 g/dL 2.3-3.5 [facility] A/G 0.7 1.0-2.5 [facility] T. BILIRUBIN 0.3 mg/dL 0.1-1.1 [facility] [employer] [place] Total Bilirubin is n ot recommended forpatients undergoing treatment with eltrombopag (Promacta)due to the potential for falsely elevated results. ALTI 30 U/L 6-54 [facility] Patients taking Sulfasalazine and/or Sul fapyridine may havefalsely depressed ALT levels. Patients should be drawn forALT before the initial administration of either drug. AST 24 U/L 6-38 [facility] Patients taking Sulfasalazine and/or Sul fapyridine may havefalsely depressed AST levels. Patients should be drawn forAST before the initial administration of either drug. ID Date Data Source [id number] 05/30/2020 06:22:00 AM EDT [facility] jer Name Value Range Interpretation Code Description Data Rosa rce(s) Supporting Document(s) FGLU 259 mg/dL 70-110 H [facility] ID Date Data Source [id number] 05/29/2020 08:39:00 PM EDT [facility] Name Value Range Interpretation Code Description Data Rosa rce(s) Supporting Document(s) FGLU 314 mg/dL 70-110 H [facility] ID Date Data Source [id number] 05/29/2020 10:01:00 PM EDT [facility] Name Value Range Interpretation Code Description Data Rosa rce(s) Supporting Document(s) FGLU 108 mg/dL 70-110 N [facility] ID Date Data Source [id number] 05/29/2020 01:50:00 PM EDT [facility] [place] [id number] NOTEPATIENT NAME: ELA PONCE PHYSICIAN: MICHAEL WANG MDAUTHOR: Selma Caballero. DATE: 05/18/20 MR#: [id number] NOTE DATE: 05/29/20 RM#: [id number] TIME: 1353 [...] Ox 96O2 Delivery Nasal cannulaO2 Flow Rate 3VQfF01105/[id number] 5471 0803 0811 0819Temp 98.5 97.7Pulse 85 92 90 90Resp 17 17B/P 165/75 161/75 187/87 187/87B/P MeanPulse Ox 95 90O2 Delivery Nasal cannulaO2 Flow Rate 5OpI73805/29 0825TempPulseRespB/P 187/87 187/87B/P MeanPulse OxO2 DeliveryO2 Flow IebqPjG8Ziiumh/OutputIntake/Output Summary 24 hours05/28 1900 05/29 0700Intake Total [...] Immat Gran (auto) (0.0 - 0.1 Cancelled 0.80q72U8/uL)Absolute Neuts (auto) (1.2 - 7.6 Cancelled 11.00 Hx10E3/uL)Absolute Lymphs (auto) (1.0 - 3.5 Cancelled 0.92 Lx10E3/uL)Absolute Monos (auto) (0.1 - 1.0 Cancelled 0.71k42R9/uL)Absolute Eos (auto) (0.1 - 0.7 Cancelled 0.24r38T0/uL)Absolute Basos (auto) (0.0 - 0.1 Cancelled 0.99u08E5/uL)Nucleated RBC % (auto) (0 %) 004/178808YtutnbiybHZY Glucose (70 - 110 mg/dL) 242 HResults [...] essential hypertension Qualified Code: I10 - Essential(primary) boitrfvrhiim38. CKD (chronic kidney disease)Status Ayngvmh58. DiabetesStatus Dntmhnz92. AnxietyStatus Acute13. PVD (peripheral vascular disease)Status Uuoozth35. DebilityStatus Bnyvtwd28. HypoalbuminemiaStatus Lvcctur77. Polysubstance abuseStatus Lwzymym53. HyperglycemiaStatus Acute18. T1-T2 SUBACUTE FRACTUREStatus Acute19. Anemia [...] essential hypertension Qualified Code: I10 - Essential(primary) nyybfwtnzlfd23. CKD (chronic kidney disease)Status ChronicA&PStable continue to [...] chronic steroid useTime spent 35 minutesDischarge [facility] versus discharged home if cleared by PTtomorrow.Resuscitation status Full codePlan discussed with patient, sonCase discussed with rn case manager, nursing staffDATE SIGNED: 05/29/20 Electronically SignedTIME SIGNED: 7662 CR FAJARDO Name Value Range Interpretation Code Description Data Rosa rce(s) Supporting Document(s) ID Date Data Source [id number] 05/29/2020 01:29:00 PM EDT [facility] Name Value Range Interpretation Code Description Data Rosa rce(s) Supporting Document(s) FGLU 242 mg/dL 70-110 H [facility] ID Date Data Source [id number] 05/29/2020 06:10:00 AM EDT [facility] Name Value Range Interpretation Code Description Data Rosa rce(s) Supporting Document(s) FGLU 259 mg/dL 70-110 H [facility] ID Date Data Source [id number] 05/29/2020 05:58:00 AM EDT [facility] jer Name Value Range Interpretation Code Description Data Rosa rce(s) Supporting Document(s) C-REACTIVE PROT 5.98 mg/dL 0.00-0.49 [facility] ID Date Data Source [id number] 05/29/2020 05:58:00 AM EDT [facility] Name Value Range Interpretation Code Description Data Rosa rce(s) Supporting Document(s) MAGNESIUM 2.1 mg/dL 1.6-2.6 N [facility] ID Date Data Source [id number] 05/29/2020 05:58:00 AM EDT [facility] Name Value Range Interpretation Code Description Data Rosa rce(s) Supporting Document(s) GLU 204 mg/dL 70-110 H [facility] Patients taking Sulfasalazine may have f alsely depressedGlucose levels. Patients taking Sulfapyridine may havefalsely elevated Glucose levels. Patients should be drawnfor Glucose before the initial administration of eitherdrug. BUN 19 mg/dL 7-23 [facility] CRE 1.140 mg/dL 0.500-1.300 [facility] GFR 50 mL/min [facility] CHLORIDE 109 mmol/L 99-110 [facility] NA 143 mmol/L 136-147 [facility] POTASSIUM 4.3 mmol/L 3.5-5.1 [facility] TCO2 28 mmol/L 20-33 [facility] ANION GAP 10.3 10.0-20.0 [facility] CA 8.1 mg/dL 8.3-10.7 [facility] ALKALINE PHOS 143 U/L 45-117 H [facility] TP 5.1 g/dL 6.0-7.8 [facility] ALB 2.3 g/dL 3.5-5.0 [facility] ESRD Dialysis patient Albumin reference range: 2.9-4.4 g/dL GL 2.8 g/dL 2.3-3.5 [facility] A/G 0.8 1.0-2.5 [facility] T. BILIRUBIN 0.4 mg/dL 0.1-1.1 [facility] [employer] [place] Total Bilirubin is n ot recommended forpatients undergoing treatment with eltrombopag (Promacta)due to the potential for falsely elevated results. ALTI 26 U/L 6-54 [facility] Patients taking Sulfasalazine and/or Sul fapyridine may havefalsely depressed ALT levels. Patients should be drawn forALT before the initial administration of either drug. AST 25 U/L 6-38 [facility] Patients taking Sulfasalazine and/or Sul fapyridine may havefalsely depressed AST levels. Patients should be drawn forAST before the initial administration of either drug. ID Date Data Source [id number] 05/29/2020 05:27:00 AM EDT [facility] Name Value Range Interpretation Code Description Data Rosa rce(s) Supporting Document(s) WBC 12.97 x10E3/uL 4.0-10.5 [facility] RBC 2.71 x10E6/uL 4.20-5.40 L [facility] Hemoglobin 8.3 g/dL 12.0-16.0 L [facility] Hematocrit 25.4 % 37.0-47.0 L [facility] MCV 93.7 fL 81.0-99.0 N [facility] MCH 30.6 pg 27.0-31.0 N [facility] MCHC 32.7 g/dL 32.7-35.6 N [facility] RDW 15.9 % 11.5-14.0 H [facility] Platelet count 157 x10E3/uL 150-450 [facility] MPV 9.8 fl 6.9-9.5 H [facility] Neutrophils 84.9 % 34-64 H [facility] Lymphocytes 7.1 % 25-45 L [facility] Monocytes 6.2 % 1.7-10.6 N [facility] Eosinophils 0.8 % 0.4-7.0 N [facility] Basophils 0.3 % 0.1-2.0 N [facility] Imm. Gran. 0.7 % 0.1-2.0 N [facility] Abs. Neutro. 11.00 x10E3/uL 1.2-7.6 [facility] Abs. Lymph. 0.92 x10E3/uL 1.0-3.5 [facility] Abs. [place]. 0.81 x10E3/uL 0.1-1.0 [facility] Abs. Eosin. 0.11 x10E3/uL 0.1-0.7 [facility] Abs. Baso. 0.04 x10E3/uL 0.0-0.1 [facility] Abs. Imm. Gran. 0.09 x10E3/uL 0.0-0.1 N [facility] spital ANRBC% 0 % 0 [facility] ID Date Data Source [id number] 05/28/2020 11:36:00 PM EDT [facility] Name Value Range Interpretation Code Description Data Rosa rce(s) Supporting Document(s) FGLU 166 mg/dL 70-110 H [facility] ID Date Data Source [id number] 05/28/2020 08:24:00 PM EDT [facility] Name Value Range Interpretation Code Description Data Rosa rce(s) Supporting Document(s) FGLU 72 mg/dL 70-110 N [facility] ID Date Data Source [id number] 05/28/2020 12:45:00 PM EDT [facility] [place] [id number] NOTEPATIENT NAME: ELA PONCE PHYSICIAN: MICHAEL WANG, MDAUTHOR: Selma Caballero. DATE: 05/18/20 MR#: [id number] NOTE DATE: 05/28/20 RM#: [id number] TIME: 1251 [...] cannula Nasal cannulaO2 Flow Rate 2 LITERS 3SCWWsE25405/[id number] 5841 0815TempPulse 83 83RespB/P 175/78 175/78 175/78B/P MeanPulse OxO2 DeliveryO2 Flow LbojSnH3Tttgke/OutputIntake/Output Summary 24 hours17 1900 04/18 0700Intake Total [...] neutral, no hallucinationsResultsLaboratory DataRecent Labs-24 hours05/27 05/28 04/376100 8518 0521ChemistrySodium (136 - 147 mmol/L) 144Potassium (3.5 [...] essential hypertension Qualified Code: I10 - Essential(primary) httrpnqugnmu43. CKD (chronic kidney disease)Status Letrzyt26. DiabetesStatus Imdznmt14. AnxietyStatus Acute13. PVD (peripheral vascular disease)Status Bitrqxh59. DebilityStatus Tgoowmh94. HypoalbuminemiaStatus Ymyxysk36. Polysubstance abuseStatus Npsqsah96. HyperglycemiaStatus Acute18. T1-T2 SUBACUTE FRACTUREStatus Acute19. Anemia [...] essential hypertension Qualified Code: I10 - Essential(primary) cshboiyyhhrn15. CKD (chronic kidney disease)Status ChronicA&PStable continue to monitor as needed.11. DiabetesStatus ChronicA&PContinue long-acting insulin as well as a CHS with sliding scale coverage.Taper steroids. Blood sugars have not been optimal and will increase long-acting insulin to 10 units subcu daily.12. AnxietyStatus AcuteA&PContinue BuSpar benzodiazepine.13. PVD (peripheral vascular disease)Status Waistline Joiner Yecenia&PContinue Plavix and statin. Note that patient [...] chronic steroid useTime spent 35 minutesDischarge to [facility] versus discharged home if cleared by PTtomorrow.Resuscitation status Full codePlan discussed with patient, sonCase discussed with rn case manager, nursing staffDATE SIGNED: 05/28/20 Electronically SignedTIME SIGNED: 1251 CR TAIL EDGER-C SCOTTY Name Value Range Interpretation Code Description Data Rosa rce(s) Supporting Document(s) ID Date Data Source [id number] 05/28/2020 01:19:00 PM EDT [facility] Name Value Range Interpretation Code Description Data Rosa rce(s) Supporting Document(s) FGLU 125 mg/dL 70-110 H [facility] ID Date Data Source [id number] 05/28/2020 08:34:00 AM EDT [facility] Name Value Range Interpretation Code Description Data Rosa rce(s) Supporting Document(s) FGLU 232 mg/dL 70-110 H [facility] ID Date Data Source [id number] 05/28/2020 06:17:00 AM EDT [facility] Name Value Range Interpretation Code Description Data Rosa rce(s) Supporting Document(s) MAGNESIUM 2.0 mg/dL 1.6-2.6 N [facility] ID Date Data Source [id number] 05/28/2020 06:17:00 AM EDT [facility] Name Value Range Interpretation Code Description Data Rosa rce(s) Supporting Document(s) C-REACTIVE PROT 3.70 mg/dL 0.00-0.49 [facility] ID Date Data Source [id number] 05/28/2020 06:17:00 AM EDT [facility] Name Value Range Interpretation Code Description Data Rosa rce(s) Supporting Document(s) GLU 179 mg/dL 70-110 H [facility] Patients taking Sulfasalazine may have f alsely depressedGlucose levels. Patients taking Sulfapyridine may havefalsely elevated Glucose levels. Patients should be drawnfor Glucose before the initial administration of eitherdrug. BUN 21 mg/dL 7-23 [facility] CRE 0.956 mg/dL 0.500-1.300 [facility] GFR > 60 mL/min [facility] CHLORIDE 109 mmol/L 99-110 [facility] NA 144 mmol/L 136-147 [facility] POTASSIUM 4.0 mmol/L 3.5-5.1 [facility] TCO2 28 mmol/L 20-33 [facility] ANION GAP 11.0 10.0-20.0 [facility] CA 8.1 mg/dL 8.3-10.7 [facility] ALKALINE PHOS 149 U/L 45-117 H [facility] TP 5.2 g/dL 6.0-7.8 [facility] ALB 2.4 g/dL 3.5-5.0 [facility] ESRD Dialysis patient Albumin reference range: 2.9-4.4 g/dL GL 2.8 g/dL 2.3-3.5 [facility] A/G 0.9 1.0-2.5 [facility] T. BILIRUBIN 0.3 mg/dL 0.1-1.1 [facility] [employer] [place] Total Bilirubin is n ot recommended forpatients undergoing treatment with eltrombopag (Promacta)due to the potential for falsely elevated results. ALTI 30 U/L 6-54 [facility] Patients taking Sulfasalazine and/or Sul fapyridine may havefalsely depressed ALT levels. Patients should be drawn forALT before the initial administration of either drug. AST 26 U/L 6-38 [facility] Patients taking Sulfasalazine and/or Sul fapyridine may havefalsely depressed AST levels. Patients should be drawn forAST before the initial administration of either drug. ID Date Data Source [id number] 05/28/2020 05:00:00 AM EDT [facility] Name Value Range Interpretation Code Description Data Rosa rce(s) Supporting Document(s) WBC 13.52 x10E3/uL 4.0-10.5 [facility] RBC 2.86 x10E6/uL 4.20-5.40 [facility] Hemoglobin 8.7 g/dL 12.0-16.0 [facility] Hematocrit 26.5 % 37.0-47.0 [facility] MCV 92.7 fL 81.0-99.0 [facility] MCH 30.4 pg 27.0-31.0 [facility] MCHC 32.8 g/dL 32.7-35.6 [facility] RDW 15.8 % 11.5-14.0 [facility] Platelet count 157 x10E3/uL 150-450 [facility] MPV 9.8 fl 6.9-9.5 H [facility] Neutrophils 84.8 % 34-64 H [facility] Lymphocytes 5.8 % 25-45 L [facility] Monocytes 6.9 % 1.7-10.6 [facility] Eosinophils 0.8 % 0.4-7.0 N [facility] Basophils 0.1 % 0.1-2.0 N [facility] Imm. Gran. 1.6 % 0.1-2.0 N [facility] Abs. Neutro. 11.46 x10E3/uL 1.2-7.6 [facility] Abs. Lymph. 0.79 x10E3/uL 1.0-3.5 [facility] Abs. [place]. 0.93 x10E3/uL 0.1-1.0 [facility] Abs. Eosin. 0.11 x10E3/uL 0.1-0.7 [facility] Abs. Baso. 0.02 x10E3/uL 0.0-0.1 [facility] Abs. Imm. Gran. 0.21 x10E3/uL 0.0-0.1 [facility] ANRBC% 0.1 % 0 N [facility] ID Date Data Source [id number] 05/27/2020 09:58:00 PM EDT [facility] Name Value Range Interpretation Code Description Data Rosa rce(s) Supporting Document(s) FGLU 249 mg/dL 70-110 H [facility] ID Date Data Source [id number] 05/27/2020 01:53:00 PM EDT [facility] [address] [id number] NOTEPATIENT NAME: ELA PONCE BATTENKEIKO PHYSICIAN: MICHAEL WANG, DERECKUTHOR: Selma Caballero. DATE: 05/18/20 MR#: [id number] NOTE DATE: 05/27/20 RM#: [id number] TIME: 1356 : 07/21/46SubjectiveEvents Since Last EntryPatient seen and examined today. Chart reviewed. Patient was having somediarrhea last night but received cathartics yesterday. She has only had 2 BMsso far today. She feels fine otherwise. No other complaints. B vitaminswithin normal limits. Hemoglobin improved. No new development. [facility]waiting [facility]. Discussed plan of care with son at the patient's request.Review of SystemsSystems reviewed and negative Constitutional, Integumentary, Eyes, ENT,Respiratory, Cardiovascular, , Musculoskeletal, [place], Endocrine, Neurology,Psych, Allergy/ImmunologyGastrointestinalReports: diarrhea (Improved).ObjectiveVital SignsVital Signs-24 HRS05/26941090 9944 2225 0600Temp 98.3 98.6Pulse 90 89 90Resp 16 16B/P 164/75 164/75 160/88B/P MeanPulse Ox 95 94O2 Delivery Nasal cannula Nasal cannula Nasal cannulaO2 Flow Rate 3L 2 6MNlN20305/[id number] 2643 0842 0842TempPulse 96 96RespB/P 149/72 149/72 149/72B/P MeanPulse OxO2 Delivery Nasal cannulaO2 Flow Rate 2 CLLMXRLuN0Ijnnoa/OutputIntake/Output Summary 24 hours05/26 1900 05/27 0700Intake Total [...] x10E3/uL) 0.02Nucleated RBC % (auto) (0 %) 004/886515PiticebhbMzgssbs B12 (193 - 986 pg/mL) 677.0Folic Acid [...] essential hypertension Qualified Code: I10 - Essential(primary) ebxdqtvhohbw67. CKD (chronic kidney disease)Status Anxytmj33. DiabetesStatus Yaxzohe30. AnxietyStatus Acute13. PVD (peripheral vascular disease)Status Ptvogvq58. DebilityStatus [place]04. HypoalbuminemiaStatus Awtvbug49. Polysubstance abuseStatus Sckpnev50. HyperglycemiaStatus Acute18. T1-T2 SUBACUTE FRACTUREStatu s Acute19. [...] essential hypertension Qualified Code: I10 - Essential(primary) hwkuyymqppgh36. CKD (chronic kidney disease)Status ChronicA&PStable continue to [...] chronic steroid useTime spent 35 minutesDischarge [facility].Resuscitation status Full codePlan discussed with patient, sonCase discussed with rn case manager, nursing staffDATE SIGNED: 05/27/20 Electronically SignedTIME SIGNED: 0249 CR FAJARDO Name Value Range Interpretation Code Description Data Rosa rce(s) Supporting Document(s) ID Date Data Source [id number] 05/28/2020 07:03:00 AM EDT [facility] Name Value Range Interpretation Code Description Data Rosa rce(s) Supporting Document(s) FGLU 213 mg/dL 70-110 H [facility] ID Date Data Source [id number] 05/27/2020 09:56:00 AM EDT [facility] Name Value Range Interpretation Code Description Data Rosa rce(s) Supporting Document(s) FOLATE 20.9 ng/mL 3.1-17.5 H [facility] ID Date Data Source [id number] 05/27/2020 09:56:00 AM EDT [facility] Name Value Range Interpretation Code Description Data Rosa rce(s) Supporting Document(s) VITAMIN B12 677.0 pg/mL 193-986 N [facility] ID Date Data Source [id number] 05/27/2020 07:26:00 AM EDT [facility] Name Value Range Interpretation Code Description Data Rosa rce(s) Supporting Document(s) WBC 12.20 x10E3/uL 4.0-10.5 [facility] RBC 2.96 x10E6/uL 4.20-5.40 L [facility] Hemoglobin 9.0 g/dL 12.0-16.0 L [facility] Hematocrit 26.9 % 37.0-47.0 L [facility] MCV 90.9 fL 81.0-99.0 N [facility] MCH 30.4 pg 27.0-31.0 N [facility] MCHC 33.5 g/dL 32.7-35.6 N [facility] RDW 15.6 % 11.5-14.0 H [facility] Platelet count 153 x10E3/uL 150-450 [facility] MPV 9.8 fl 6.9-9.5 H [facility] Neutrophils 85.1 % 34-64 [facility] Lymphocytes 5.9 % 25-45 L [facility] [facility] Monocytes 6.6 % 1.7-10.6 N [facility] Eosinophils 0.8 % 0.4-7.0 N [facility] Basophils 0.2 % 0.1-2.0 N [facility] Imm. Gran. 1.4 % 0.1-2.0 N [facility] Abs. Neutro. 10.39 x10E3/uL 1.2-7.6 [facility] Abs. Lymph. 0.72 x10E3/uL 1.0-3.5 [facility] Abs. [place]. 0.80 x10E3/uL 0.1-1.0 N [facility] Abs. Eosin. 0.10 x10E3/uL 0.1-0.7 [facility] Abs. Baso. 0.02 x10E3/uL 0.0-0.1 [facility] Abs. Imm. Gran. 0.17 x10E3/uL 0.0-0.1 [facility] ANRBC% 0 % 0 N [facility] ID Date Data Source [id number] 05/27/2020 07:23:00 AM EDT [facility] jer Name Value Range Interpretation Code Description Data Rosa rce(s) Supporting Document(s) C-REACTIVE PROT 5.35 mg/dL 0.00-0.49 H [facility] ID Date Data Source [id number] 05/27/2020 07:23:00 AM EDT [facility] jer Name Value Range Interpretation Code Description Data Rosa rce(s) Supporting Document(s) MAGNESIUM 2.1 mg/dL 1.6-2.6 N [facility] ID Date Data Source [id number] 05/27/2020 07:23:00 AM EDT [facility] Name Value Range Interpretation Code Description Data Rosa rce(s) Supporting Document(s) GLU 170 mg/dL 70-110 H [facility] Patients taking Sulfasalazine may have f alsely depressedGlucose levels. Patients taking Sulfapyridine may havefalsely elevated Glucose levels. Patients should be drawnfor Glucose before the initial administration of eitherdrug. BUN 19 mg/dL 7-23 [facility] CRE 0.826 mg/dL 0.500-1.300 [facility] GFR > 60 mL/min [facility] CHLORIDE 106 mmol/L 99-110 [facility] NA 142 mmol/L 136-147 [facility] POTASSIUM 3.7 mmol/L 3.5-5.1 [facility] TCO2 28 mmol/L 20-33 [facility] ANION GAP 11.7 10.0-20.0 [facility] CA 8.5 mg/dL 8.3-10.7 [facility] ALKALINE PHOS 141 U/L 45-117 H [facility] TP 5.5 g/dL 6.0-7.8 [facility] ALB 2.4 g/dL 3.5-5.0 [facility] ESRD Dialysis patient Albumin reference range: 2.9-4.4 g/dL GL 3.1 g/dL 2.3-3.5 [facility] A/G 0.8 1.0-2.5 [facility] T. BILIRUBIN 0.5 mg/dL 0.1-1.1 [facility] [employer] [place] Total Bilirubin is n ot recommended forpatients undergoing treatment with eltrombopag (Promacta)due to the potential for falsely elevated results. ALTI 33 U/L 6-54 N [facility] Patients taking Sulfasalazine and/or Sul fapyridine may havefalsely depressed ALT levels. Patients should be drawn forALT before the initial administration of either drug. AST 29 U/L 6-38 N [facility] Patients taking Sulfasalazine and/or Sul fapyridine may havefalsely depressed AST levels. Patients should be drawn forAST before the initial administration of either drug. ID Date Data Source [id number] 05/27/2020 07:35:00 AM EDT [facility] Name Value Range Interpretation Code Description Data Rosa rce(s) Supporting Document(s) FGLU 164 mg/dL 70-110 H [facility] ID Date Data Source [id number] 05/27/2020 08:30:00 AM EDT [facility] Name Value Range Interpretation Code Description Data Rosa rce(s) Supporting Document(s) FGLU 253 mg/dL 70-110 H [facility] ID Date Data Source [id number] 05/26/2020 07:38:00 PM EDT [facility] Name Value Range Interpretation Code Description Data Rosa rce(s) Supporting Document(s) FGLU 107 mg/dL 70-110 N [facility] ID Date Data Source [id number] 05/26/2020 02:50:00 PM EDT [facility] Name Value Range Interpretation Code Description Data Rosa rce(s) Supporting Document(s) FGLU 210 mg/dL 70-110 H [facility] ID Date Data Source [id number] 05/26/2020 10:58:00 AM EDT [facility] [address] [id number] NOTEPATIENT NAME: ELA PONCE PHYSICIAN: MICHAEL WANG MDAUTHOR: Selma Caballero. DATE: 05/18/20 MR#: [id number] NOTE DATE: 05/26/20 RM#: [id number] TIME: 1112 : 45SubjectiveEvents Since Last EntryPatient seen and examined today. Chart reviewed. [facility] and [...] Musculoskeletal, Aldo, Endocrine,Neurology, Psych, Allergy/ImmunologyObjectiveVital SignsVital Signs-24 HRS05/25230718 5169 1800 2027 2102Temp 99.5 97.6 98.0Pulse 94 86 95 87 85Resp 15 16 17B/P 172/69 168/69 149/71 163/76 163/73B/P MeanPulse Ox 96 96 97O2 Delivery Nasal cannula Nasal cannula Nasal cannulaO2 Flow Rate 1L 3L 5LNqQ88305/[id number] 9430 0521 0908 0908Temp 97.9 97.7Pulse 73 79 79Resp 18 17B/P 163/78 161/77 161/77 161/77B/P MeanPulse Ox 97 94O2 Delivery Nasal cannula Nasal cannula Nasal cannulaO2 Flow Rate 2 2 5IpA59705/26145898 0953Temp 98.0Pulse 79 86Resp 20B/P 161/77 164/78B/P MeanPulse Ox 97O2 Delivery Nasal cannulaO2 Flow Rate 0XLzI6Klplrz/OutputIntake/Output Summary 24 hours05/25 1900 05/26 0700Intake Total [...] Status mood neutral, no hallucinationsResultsLaboratory DataRecent Labs-24 hours05/25831262 9722 1755 2022ChemistryPOC Glucose (70 - 110 mg/dL) 175 H 162 H 166 HHematologyHgb (12.0 - 16.0 g/dL) 8.9 LHct (37.0 - 47.0 %) 26.3 L05/26608513 0538ChemistrySodium (136 - 147 mmol/L) 144Potassium (3.5 [...] essential hypertension Qualified Code: I10 - Essential(primary) czbaticljriv08. CKD (chronic kidney disease)Status ChronicA&PStable continue to [...] chronic steroid useTime spent 30 [facility]Dis[facility]Res[facility] status Full codePlan discussed with patientCase discussed with rn case manager, nursing staffDATE SIGNED: 05/26/20 Electronically SignedTIME SIGNED: 1112 CR FAJARDO Name Value Range Interpretation Code Description Data Rosa rce(s) Supporting Document(s) ID Date Data Source [id number] 05/26/2020 07:13:00 AM EDT [facility] jer Name Value Range Interpretation Code Description Data Rosa rce(s) Supporting Document(s) FGLU 127 mg/dL 70-110 H [facility] ID Date Data Source [id number] 05/26/2020 06:31:00 AM EDT [facility] jer Name Value Range Interpretation Code Description Data Rosa rce(s) Supporting Document(s) WBC 11.71 x10E3/uL 4.0-10.5 [facility] RBC 2.74 x10E6/uL 4.20-5.40 L [facility] Hemoglobin 8.3 g/dL 12.0-16.0 L [facility] Hematocrit 24.8 % 37.0-47.0 L [facility] MCV 90.5 fL 81.0-99.0 [facility] MCH 30.3 pg 27.0-31.0 N [facility] MCHC 33.5 g/dL 32.7-35.6 [facility] RDW 15.7 % 11.5-14.0 H [facility] Platelet count 142 x10E3/uL 150-450 L [facility] ital MPV 9.4 fl 6.9-9.5 N [facility] Neutrophils 81.0 % 34-64 H [facility] Lymphocytes 8.5 % 25-45 L [facility] Monocytes 7.8 % 1.7-10.6 [facility] Eosinophils 1.1 % 0.4-7.0 [facility] Basophils 0.2 % 0.1-2.0 [facility] Imm. Gran. 1.4 % 0.1-2.0 [facility] Abs. Neutro. 9.50 x10E3/uL 1.2-7.6 [facility] Abs. Lymph. 0.99 x10E3/uL 1.0-3.5 [facility] Abs. [place]. 0.91 x10E3/uL 0.1-1.0 N [facility] Abs. Eosin. 0.13 x10E3/uL 0.1-0.7 [facility] Abs. Baso. 0.02 x10E3/uL 0.0-0.1 [facility] Imm. Gran. 0.16 x10E3/uL 0.0-0.1 H [facility] spital ANRBC% 0 % 0 [facility] ID Date Data Source [id number] 05/26/2020 06:28:00 AM EDT [facility] Name Value Range Interpretation Code Description Data Rosa rce(s) Supporting Document(s) MAGNESIUM 1.9 mg/dL 1.6-2.6 [facility] ID Date Data Source [id number] 05/26/2020 06:28:00 AM EDT [facility] jer Name Value Range Interpretation Code Description Data Rosa rce(s) Supporting Document(s) GLU 116 mg/dL 70-110 H [facility] Patients taking Sulfasalazine may have f alsely depressedGlucose levels. Patients taking Sulfapyridine may havefalsely elevated Glucose levels. Patients should be drawnfor Glucose before the initial administration of eitherdrug. BUN 17 mg/dL 7-23 [facility] CRE 0.891 mg/dL 0.500-1.300 [facility] GFR > 60 mL/min [facility] CHLORIDE 108 mmol/L 99-110 [facility] NA 144 mmol/L 136-147 [facility] POTASSIUM 3.7 mmol/L 3.5-5.1 [facility] TCO2 29 mmol/L 20-33 [facility] ANION GAP 10.7 10.0-20.0 [facility] CA 8.2 mg/dL 8.3-10.7 [facility] ALKALINE PHOS 129 U/L 45-117 H [facility] TP 5.1 g/dL 6.0-7.8 [facility] ALB 2.2 g/dL 3.5-5.0 [facility] ESRD Dialysis patient Albumin reference range: 2.9-4.4 g/dL GL 2.9 g/dL 2.3-3.5 [facility] A/G 0.8 1.0-2.5 [facility] T. BILIRUBIN 0.4 mg/dL 0.1-1.1 [facility] [employer] [place] Total Bilirubin is n ot recommended forpatients undergoing treatment with eltrombopag (Promacta)due to the potential for falsely elevated results. ALTI 28 U/L 6-54 [facility] Patients taking Sulfasalazine and/or Sul fapyridine may havefalsely depressed ALT levels. Patients should be drawn forALT before the initial administration of either drug. AST 25 U/L 6-38 [facility] Patients taking Sulfasalazine and/or Sul fapyridine may havefalsely depressed AST levels. Patients should be drawn forAST before the initial administration of either drug. ID Date Data Source [id number] 05/26/2020 06:28:00 AM EDT [facility] Name Value Range Interpretation Code Description Data Rosa rce(s) Supporting Document(s) C-REACTIVE PROT 3.59 mg/dL 0.00-0.49 [facility] ID Date Data Source [id number] 05/25/2020 10:42:00 PM EDT [facility] Name Value Range Interpretation Code Description Data Rosa rce(s) Supporting Document(s) FGLU 166 mg/dL 70-110 H [facility] ID Date Data Source [id number] 05/25/2020 06:14:00 PM EDT [facility] [address] [id number] NOTEPATIENT NAME: ELA PONCE PHYSICIAN: MICHAEL WANG, MDAUTHOR: Breezy [place], Zhang. DATE: 05/18/20 MR#: [id number] NOTE DATE: 05/25/20 RM#: [id number] TIME: 1850 [...] All otherreview of system negativeObjectiveVital SignsVital Signs-24 HRS05/24987767 3277 0202 0542 0823Temp 98.7 97.0 97.5Pulse 99 99 75 86 96Resp 18 18 18B/P 190/80 190/80 161/73 124/71 142/100B/P MeanPulse Ox 96 97 95O2 Delivery Nasal cannula Nasal cannula Nasal cannulaO2 Flow Rate 1.5 1.5 1.7VaP58505/25882669 8038 1140 1339Temp 99.0 99.5Pulse 94 94 86Resp 16 15B/P 142/100 172/69 172/69 168/69B/P MeanPulse Ox 94 96O2 Delivery Nasal cannula Nasal cannulaO2 Flow Rate 3L 2LLwO3Hiompg/OutputIntake/Output Summary 24 hours05/24 1900 05/25 0700Intake Total [...] Status mood neutral, no hallucinationsResultsLaboratory DataRecent Labs-24 hours05/24479863 9599 0608 1755ChemistrySodium (136 - 147 mmol/L) 143Potassium [...] 11.71 HAbsolute Lymphs (auto) (1.0 - 3.5 1.28u69A4/uL)Absolute Monos (auto) (0.1 - 1.0 x10E3/uL) 1.03 [...] vertebral body fracture-Leukocytosis trending down. C-reactive protein kamlvug-Rwjgsb-zg blood cultures-Pain management.2. PneumoniaStatus AcuteA&PC-reactive protein improvingZosyn. [...] UTI (urinary tract infection)Status AcuteA&PTreated with Zosyn fm-Zhztaf-al urine culture.5. HLD (hyperlipidemia)Status ChronicA&PContinue statin6. Spinal stenosisStatus ChronicA&PChronic history of spinal stenosis continue with pain management.7. DepressionStatus ChronicA&PContinue with duloxetine., BuSpar8. HypothyroidismStatus ChronicA&P-Continue with levothyroxine.9. HTN (hypertension)Status ChronicA&P-Continue with lisinopril and increase hydralazine 50 mg p.o. 3 times daily,Imdur p.o. 90md daily, added metoprolol 25 mg p.o. dailyblood pressure control-Monitor blood pressure.Hypertension type: essential hypertension Qualified Code: I10 - Essential(primary) grteifuljxcz68. CKD (chronic kidney disease)Status ChronicA&PHistory of CKD. SU at [facility].-Monitor renal function.11. DiabetesStatus ChronicA&PComplicated with hypoglycemia and hyperglycemiaLevemir 6 units daily, continue NovoLog via protocol, close monitoring, ukberugctofpd52. AnxietyStatus AcuteA&Mendoza chronic benzodiazepines. Will continue.13. PVD (peripheral vascular disease)Status ChronicA&PHistory of stent placement.Continue with Plavix, statin-Continue to monitor.14. DebilityStatus ChronicA&P-Supportive care-Consider PT/OT when patient is more alert.15. HypoalbuminemiaStatus ChronicA&PEncourage p.o. intake. Nutrition supplementation.Ensure p.o. 3 times daily.16. Polysubstance abuseStatus ChronicA&PThiamine, folic acid, multivitamin, no signs of ouewrddwhx15. HypernatremiaStatus AcuteA&YLoxwuhxoi30. HyperglycemiaStatus AcuteA&PSecondary to steroid, will be very cautious in increasing coverage due toepisode of hypoglycemia, taper edylylr60. T1-T2 SUBACUTE FRACTUREStatus AcuteA&PPT, OT, fall precaution, pain medication as sjsulyi75. Anemia of chronic diseaseStatus AcuteA&PWorsening anemia, no signs of bleeding, transfuse 1 unit PRBC with appropriateresponse. Will monitor, further work-up as outpatientAdditional Uwkla56-hvyb-pal female patient underlying medical history of COPD O2 dependent,spinal stenosis, depression, dyslipidemia, type 2 diabetes, nicotine addiction,anxiety, hypothyroidism, debility, CKD, peripheral vascular disease,hypoalbuminemia, polysubstance abuse, initially admitted to [facility] for right upper lobe pneumonia, sepsis, deconditioning with frequentfall, transferred given complains of back pain and worsening leukocytosisDVT prophylaxis Heparin subcuDisposition pending clinical improvement, potential [facility],further work-up as outpatientResuscitation status Full codePlan discussed with patient, sonCase discussed with rn case manager, nursing staffVTE ProphylaxisVTE Prophylaxis: Heparin subcu.DATE SIGNED: 05/25/20 Electronically SignedTIME SIGNED: 1850 SAAD FRIED MD Name Value Range Interpretation Code Description Data Rosa rce(s) Supporting Document(s) ID Date Data Source [id number] 05/25/2020 06:12:00 PM EDT [facility] jer COMMENTS TO LAB: post transfusion Name Value Range Interpretation Code Description Data Rosa rce(s) Supporting Document(s) Hemoglobin 8.9 g/dL 12.0-16.0 L [facility] Hematocrit 26.3 % 37.0-47.0 L [facility] ID Date Data Source [id number] 05/26/2020 02:29:00 AM EDT [facility] jer Name Value Range Interpretation Code Description Data Rosa rce(s) Supporting Document(s) FGLU 162 mg/dL 70-110 H [facility] ID Date Data Source [id number] 05/25/2020 07:14:00 PM EDT [facility] Name Value Range Interpretation Code Description Data Rosa rce(s) Supporting Document(s) FGLU 175 mg/dL 70-110 H [facility] ID Date Data Source [id number] 05/25/2020 10:01:00 AM EDT [facility] Name Value Range Interpretation Code Description Data Rosa rce(s) Supporting Document(s) BLOOD TYPE AB NEGATIVE [facility] ID Date Data Source [id number] 05/25/2020 02:30:00 PM EDT [facility] jer Name Value Range Interpretation Code Description Data Rosa rce(s) Supporting Document(s) FGLU 143 mg/dL 70-110 H [facility] ID Date Data Source [id number] 05/25/2020 05:56:00 AM EDT [facility] jer Name Value Range Interpretation Code Description Data Rosa rce(s) Supporting Document(s) C-REACTIVE PROT 2.86 mg/dL 0.00-0.49 [facility] ID Date Data Source [id number] 05/25/2020 05:56:00 AM EDT [facility] jer Name Value Range Interpretation Code Description Data Rosa rce(s) Supporting Document(s) MAGNESIUM 2.0 mg/dL 1.6-2.6 [facility] ID Date Data Source [id number] 05/25/2020 05:56:00 AM EDT [facility] Name Value Range Interpretation Code Description Data Rosa rce(s) Supporting Document(s) GLU 105 mg/dL 70-110 [facility] Patients taking Sulfasalazine may have f alsely depressedGlucose levels. Patients taking Sulfapyridine may havefalsely elevated Glucose levels. Patients should be drawnfor Glucose before the initial administration of eitherdrug. BUN 19 mg/dL 7-23 [facility] CRE 0.871 mg/dL 0.500-1.300 [facility] GFR > 60 mL/min [facility] CHLORIDE 111 mmol/L 99-110 H [facility] NA 143 mmol/L 136-147 [facility] POTASSIUM 3.9 mmol/L 3.5-5.1 [facility] TCO2 29 mmol/L 20-33 [facility] ANION GAP 6.9 10.0-20.0 L [facility] CA 8.1 mg/dL 8.3-10.7 L [facility] ALKALINE PHOS 134 U/L 45-117 H [facility] TP 5.2 g/dL 6.0-7.8 [facility] ALB 2.4 g/dL 3.5-5.0 [facility] ESRD Dialysis patient Albumin reference range: 2.9-4.4 g/dL GL 2.8 g/dL 2.3-3.5 [facility] A/G 0.9 1.0-2.5 [facility] T. BILIRUBIN 0.4 mg/dL 0.1-1.1 [facility] [employer] [place] Total Bilirubin is n ot recommended forpatients undergoing treatment with eltrombopag (Promacta)due to the potential for falsely elevated results. ALTI 34 U/L 6-54 [facility] Patients taking Sulfasalazine and/or Sul fapyridine may havefalsely depressed ALT levels. Patients should be drawn forALT before the initial administration of either drug. AST 28 U/L 6-38 [facility] Patients taking Sulfasalazine and/or Sul fapyridine may havefalsely depressed AST levels. Patients should be drawn forAST before the initial administration of either drug. ID Date Data Source [id number] 05/25/2020 05:47:00 AM EDT [facility] Name Value Range Interpretation Code Description Data Rosa rce(s) Supporting Document(s) WBC 14.10 x10E3/uL 4.0-10.5 [facility] RBC 2.41 x10E6/uL 4.20-5.40 [facility] Hemoglobin 7.4 g/dL 12.0-16.0 [facility] Hematocrit 22.4 % 37.0-47.0 [facility] MCV 92.9 fL 81.0-99.0 [facility] MCH 30.7 pg 27.0-31.0 [facility] MCHC 33.0 g/dL 32.7-35.6 [facility] RDW 15.1 % 11.5-14.0 H [facility] Platelet count 150 x10E3/uL 150-450 [facility] ital MPV 9.7 fl 6.9-9.5 H [facility] Neutrophils 83.1 % 34-64 H [facility] Lymphocytes 7.2 % 25-45 L [facility] Monocytes 7.3 % 1.7-10.6 N [facility] Eosinophils 0.9 % 0.4-7.0 N [facility] Basophils 0.2 % 0.1-2.0 N [facility] Imm. Gran. 1.3 % 0.1-2.0 N [facility] Abs. Neutro. 11.71 x10E3/uL 1.2-7.6 [facility] Abs. Lymph. 1.02 x10E3/uL 1.0-3.5 [facility] Abs. [place]. 1.03 x10E3/uL 0.1-1.0 [facility] Abs. Eosin. 0.13 x10E3/uL 0.1-0.7 [facility] Abs. Baso. 0.03 x10E3/uL 0.0-0.1 [facility] Abs. Imm. Gran. 0.18 x10E3/uL 0.0-0.1 [facility] ANRBC% 0 % 0 N [facility] ID Date Data Source [id number] 05/29/2020 11:59:00 PM EDT [facility] jer : N *Clinically Significant Acut e Blood Loss N *Hgb < or = to 7.0g/dL or Hct < or = to 21% N *Hgb < 8.0g/dL or Hct < 24% and PT Hemodynamically Unstable N *Hgb < 8.0 for Anemia and an Acute MD or Unstable Angina N *Hgb < 9.0g/dL [...] [facility] ID Date Data Source [id number] 05/29/2020 12:00:00 AM EDT [facility] jer Name Value Range Interpretation Code Description Data Rosa rce(s) Supporting Document(s) [id number] TRANSFUSED PRODUCT: PACKED CELLS CO UNT: 1 [facility] ID Date Data Source [id number] 05/29/2020 11:59:00 PM EDT [facility] : N *Clinically Significant Acut e Blood Loss N *Hgb < or = to 7.0g/dL or Hct < or = to 21% N *Hgb < 8.0g/dL or Hct < 24% and PT Hemodynamically Unstable N *Hgb < 8.0 for Anemia and an Acute MD or Unstable Angina N *Hgb < 9.0g/dL with Chronic Transfusion Therapy Y *Maximum Blood Order Schedule NIrradiated? NCMV Negative? NTransfuse 1units over 4Have you ever had a blood transfusion? NHave you had a blood transfusion within the last 3 months? NC: NEGATIVEE: NEGATIVE Name Value Range Interpretation Code Description Data Rosa rce(s) Supporting Document(s) ID Date Data Source [id number] 05/29/2020 11:59:00 PM EDT [facility] : N *Clinically Significant Acut e Blood Loss N *Hgb < or = to 7.0g/dL or Hct < or = to 21% N *Hgb < 8.0g/dL or Hct < 24% and PT Hemodynamically Unstable N *Hgb < 8.0 for Anemia and an Acute MD or Unstable Angina N *Hgb < 9.0g/dL with Chronic Transfusion Therapy Y *Maximum Blood Order Schedule NIrradiated? NCMV Negative? NTransfuse 1units over 4Have you ever had a blood transfusion? NHave you had a blood transfusion within the last 3 months? NUNIT NUMBER: [id number]: YPRODUCT: LEUKO REDUCED RED BLOOD CELLSSOURCE: [facility] [place] [facility] TYPE: A NEGATIVEVOLUME: 309MLNOT AVAILABLE: YCROSSMATCH COMPONENTS:00UNIT NUMBER: [id number]: YPRODUCT: LEUKO REDUCED RED BLOOD CELLSSOURCE: [facility] [place] [facility] TYPE: A NEGATIVEVOLUME: 309MLCROSSMATCH COMPONENTS:00 Name Value Range Interpretation Code Description Data Rosa rce(s) Supporting Document(s) ID Date Data Source [id number] 05/29/2020 11:59:00 PM EDT [facility] : N *Clinically Significant Acut e Blood Loss N *Hgb < or = to 7.0g/dL or Hct < or = to 21% N *Hgb < 8.0g/dL or Hct < 24% and PT Hemodynamically Unstable N *Hgb < 8.0 for Anemia and an Acute MD or Unstable Angina N *Hgb < 9.0g/dL with Chronic Transfusion Therapy Y *Maximum Blood Order Schedule NIrradiated? NCMV Negative? NTransfuse 1units over 4Have you ever had a blood transfusion? NHave you had a blood transfusion within the last 3 months? NUNIT NUMBER: [id number]: YPRODUCT: LEUKO REDUCED RED BLOOD CELLSSOURCE: [facility] TYPE: A NEGATIVEVOLUME: 283MLNOT AVAILABLE: YCROSSMATCH COMPONENTS: Name Value Range Interpretation Code Description Data Rosa rce(s) Supporting Document(s) ISXM 0 [facility] IGGXM 0 [facility] ID Date Data Source [id number] 05/29/2020 11:59:00 PM EDT [facility] : N *Clinically Significant Acut e Blood Loss N *Hgb < or = to 7.0g/dL or Hct < or = to 21% N *Hgb < 8.0g/dL or Hct < 24% and PT Hemodynamically Unstable N *Hgb < 8.0 for Anemia and an Acute MD or Unstable Angina N *Hgb < 9.0g/dL with Chronic Transfusion Therapy Y *Maximum Blood Order Schedule NIrradiated? NCMV Negative? NTransfuse 1units over 4Have you ever had a blood transfusion? NHave you had a blood transfusion within the last 3 months? N Name Value Range Interpretation Code Description Data Rosa rce(s) Supporting Document(s) BLOOD TYPE AB NEGATIVE N [facility] ANTIBODY SCREEN POSITIVE N [facility] al ID Date Data Source [id number] 05/25/2020 08:55:00 AM EDT [facility] Name Value Range Interpretation Code Description Data Rosa rce(s) Supporting Document(s) DATIgG NEGATIVE NEGATIVE N [facility] ID Date Data Source [id number] 05/25/2020 12:50:00 AM EDT [facility] Name Value Range Interpretation Code Description Data Rosa rce(s) Supporting Document(s) FGLU 250 mg/dL 70-110 H [facility] ID Date Data Source [id number] 05/24/2020 06:24:00 PM EDT [facility] Name Value Range Interpretation Code Description Data Rosa rce(s) Supporting Document(s) FGLU 107 mg/dL 70-110 N [facility] ID Date Data Source [id number] 05/24/2020 04:01:00 PM EDT [address] [id number] NOTEPATIENT NAME: ELA PONCE BATTENKEIKO PHYSICIAN: MICHAEL WANG, MDAUTHOR: Breezy [place], Zhang. DATE: 05/18/20 MR#: [id number] NOTE DATE: 05/24/20 RM#: [id number] TIME: 1608 : 45SubjectiveCC/Hx Present IllnessBack painEvents Since Last EntryCurrently alert oriented x3. Very poor historian. On chronic oxygen. Patientcomfortable, reported chronic back pain. Following command, tolerating p.o.back to baseline. Denies chest pain. Afebrile. All other review of systemnegativeObjectiveVital SignsVital Signs-24 HRS05/23994114 9505 0200 0517Temp 98.1 98.0 97.8 98.1Pulse 100 94 94 92Resp 17 18 18 18B/P 166/76 166/76 164/76 168/79B/P MeanPulse Ox 99 99 97 97O2 Delivery Nasal cannula Nasal cannula Nasal cannula Nasal cannulaO2 Flow Rate 3L 3L 3L 1.7UvX94705/24635300 8136 0739 0844 1030Temp 98.1 98.4Pulse 87 93 103Resp 18 17B/P 168/79 169/75 169/75 162/77B/P MeanPulse Ox 99 94O2 Delivery Nasal cannula Nasal cannulaO2 Flow Rate 3L 1.9EWgX315/630783Kgzh 98.4Pulse 100Resp 17B/P 164/78B/P MeanPulse Ox 96O2 DeliveryO2 Flow GjssQkE5Pn take/OutputIntake/Output Summary 24 hours13 1900 0414 0700Intake [...] Status mood neutral, no hallucinationsResultsLaboratory DataRecent Labs-24 hours05/23561731 6110 0350 0607ChemistrySodium (136 - 147 mmol/L) 143Potassium [...] x10E3/uL) 0.01Nucleated RBC % (auto) (0 %) 004/948505TevctcvelRPS Glucose (70 - 110 mg/dL) 228 HResults Reviewed labs reviewedAssessment/PlanProblem List1. Back painStatus AcuteA&PDegenerative disc disease, spinal stenosis, T1-T2 subacute fracturePatient complained of back pain.MRI appreciated with no evidence of discitis, likely worsening pain due tosubcu vertebral body fracture-Leukocytosis trending down. C-reactive protein evrqhdl-Pvhyqe-dm blood cultures-Pain management.2. PneumoniaStatus AcuteA&PC-reactive protein improvingZosyn. [...] pyelonephritis on CT abdomen pelvis-Continue with Zosyn rl-Ldsssu-ag urine culture.5. HLD (hyperlipidemia)Status ChronicA&PContinue statin6. Spinal stenosisStatus ChronicA&PChronic history of spinal stenosis continue with pain management.7. DepressionStatus ChronicA&PContinue with duloxetine., BuSpar8. HypothyroidismStatus ChronicA&P-Continue with levothyroxine.9. HTN (hypertension)Status ChronicA&P-Continue with lisinopril and increase hydralazine 50 mg p.o. 3 times daily,Imdur p.o. 90md daily, added metoprolol 25 mg p.o. dailyblood pressure control-Monitor blood pressure.10. CKD (chronic kidney disease)Status ChronicA&PHistory of CKD. SU at [facility].-Monitor renal function.11. DiabetesStatus ChronicA&PComplicated with hypoglycemia and hyperglycemiaLevemir 6 units daily, continue NovoLog via protocol, close monitoring, nqocnfdksazlj00. AnxietyStatus AcuteA&Mendoza chronic benzodiazepines. Will continue.13. PVD (peripheral vascular disease)Status ChronicA&PHistory of stent placement.Continue with Plavix, statin-Continue to monitor.14. DebilityStatus ChronicA&P-Supportive care-Consider PT/OT when patient is more alert.15. HypoalbuminemiaStatus ChronicA&PEncourage p.o. intake. Nutrition supplementation.Ensure p.o. 3 times daily.16. Polysubstance abuseStatus ChronicA&PThiamine, folic acid, multivitamin, no signs of iipamhzgvj48. HypernatremiaStatus AcuteA&ADhjwzfrcv42. HyperglycemiaStatus AcuteA&PSecondary to steroid, will be very cautious in increasing coverage due toepisode of hypoglycemia, taper jbbdukg33. T1-T2 SUBACUTE FRACTUREStatus AcuteA&PPT, OT, fall precaution, pain medication as orderedAdditional Jgbcx72-qwqh-ppz female patient underlying medical history of COPD O2 dependent,spinal stenosis, depression, dyslipidemia, type 2 diabetes, nicotine addiction,anxiety, hypothyroidism, debility, CKD, peripheral vascular disease,hypoalbuminemia, polysubstance abuse, [facility], [facility], deconditioning with frequentfall, transferred given complains of back pain and worsening leukocytosisDVT prophylaxis Heparin subcuDisposition pending clinical improvement, [place] [facility]Resuscitation status Full codePlan discussed with patientCase discussed with rn case manager, nursing staffVTE ProphylaxisVTE Prophylaxis: Heparin subcu.DATE SIGNED: 05/24/20 Electronically SignedTIME SIGNED: 6378 SAAD FRIED MD Name Value Range Interpretation Code Description Data Rosa rce(s) Supporting Document(s) ID Date Data Source [id number] 05/24/2020 02:59:00 PM EDT [facility] Name Value Range Interpretation Code Description Data Rosa rce(s) Supporting Document(s) FGLU 228 mg/dL 70-110 [facility] ID Date Data Source [id number] 05/24/2020 07:48:00 AM EDT [facility] Name Value Range Interpretation Code Description Data Rosa rce(s) Supporting Document(s) FGLU 93 mg/dL 70-110 [facility] ID Date Data Source [id number] 05/24/2020 05:49:00 AM EDT [facility] jer Name Value Range Interpretation Code Description Data Rosa rce(s) Supporting Document(s) GLU 69 mg/dL 70-110 [facility] Patients taking Sulfasalazine may have f alsely depressedGlucose levels. Patients taking Sulfapyridine may havefalsely elevated Glucose levels. Patients should be drawnfor Glucose before the initial administration of eitherdrug. BUN 24 mg/dL 7-23 [facility] CRE 0.995 mg/dL 0.500-1.300 [facility] GFR 58 mL/min [facility] CHLORIDE 112 mmol/L 99-110 [facility] NA 143 mmol/L 136-147 [facility] POTASSIUM 3.9 mmol/L 3.5-5.1 [facility] TCO2 27 mmol/L 20-33 [facility] ANION GAP 7.9 10.0-20.0 [facility] CA 8.2 mg/dL 8.3-10.7 [facility] ALKALINE PHOS 139 U/L 45-117 [facility] TP 5.7 g/dL 6.0-7.8 [facility] ALB 2.6 g/dL 3.5-5.0 [facility] ESRD Dialysis patient Albumin reference range: 2.9-4.4 g/dL GL 3.1 g/dL 2.3-3.5 [facility] A/G 0.8 1.0-2.5 [facility] T. BILIRUBIN 0.4 mg/dL 0.1-1.1 [facility] [employer] [place] Total Bilirubin is n ot recommended forpatients undergoing treatment with eltrombopag (Promacta)due to the potential for falsely elevated results. ALTI 36 U/L 6-54 [facility] Patients taking Sulfasalazine and/or Sul fapyridine may havefalsely depressed ALT levels. Patients should be drawn forALT before the initial administration of either drug. AST 32 U/L 6-38 [facility] Patients taking Sulfasalazine and/or Sul fapyridine may havefalsely depressed AST levels. Patients should be drawn forAST before the initial administration of either drug. ID Date Data Source [id number] 05/24/2020 05:49:00 AM EDT [facility] Name Value Range Interpretation Code Description Data Rosa rce(s) Supporting Document(s) C-REACTIVE PROT 0.90 mg/dL 0.00-0.49 [facility] ID Date Data Source [id number] 05/24/2020 05:49:00 AM EDT [facility] Name Value Range Interpretation Code Description Data Rosa rce(s) Supporting Document(s) MAGNESIUM 2.0 mg/dL 1.6-2.6 [facility] ID Date Data Source [id number] 05/24/2020 05:16:00 AM EDT [facility] Name Value Range Interpretation Code Description Data Rosa rce(s) Supporting Document(s) WBC 17.89 x10E3/uL 4.0-10.5 [facility] RBC 2.71 x10E6/uL 4.20-5.40 [facility] Hemoglobin 8.1 g/dL 12.0-16.0 [facility] Hematocrit 25.1 % 37.0-47.0 [facility] MCV 92.6 fL 81.0-99.0 [facility] MCH 29.9 pg 27.0-31.0 [facility] MCHC 32.3 g/dL 32.7-35.6 [facility] RDW 15.1 % 11.5-14.0 [facility] Platelet count 164 x10E3/uL 150-450 [facility] ital MPV 9.9 fl 6.9-9.5 [facility] Neutrophils 83.5 % 34-64 [facility] Lymphocytes 7.4 % 25-45 [facility] Monocytes 6.4 % 1.7-10.6 [facility] Eosinophils 1.0 % 0.4-7.0 [facility] Basophils 0.1 % 0.1-2.0 [facility] Imm. Gran. 1.6 % 0.1-2.0 [facility] Abs. Neutro. 14.96 x10E3/uL 1.2-7.6 [facility] Abs. Lymph. 1.32 x10E3/uL 1.0-3.5 [facility] Abs. [place]. 1.15 x10E3/uL 0.1-1.0 [facility] Abs. Eosin. 0.17 x10E3/uL 0.1-0.7 [facility] Abs. Baso. 0.01 x10E3/uL 0.0-0.1 [facility] Abs. Imm. Gran. 0.28 x10E3/uL 0.0-0.1 [facility] ANRBC% 0 % 0 [facility] ID Date Data Source [id number] 05/24/2020 01:38:00 AM EDT [facility] Name Value Range Interpretation Code Description Data Rosa rce(s) Supporting Document(s) FGLU 68 mg/dL 70-110 [facility] ID Date Data Source [id number] 05/23/2020 08:05:00 PM EDT [address] [address]LISCOTYM NOTEPATIENT NAME: ELA PONCE PHYSICIAN: MICHAEL WANG MDAUTHOR: Breezy GA, Zhang. DATE: 05/18/20 MR#: [id number] NOTE DATE: 05/23/20 RM#: [id number] TIME: 2021 [...] Nasal cannula Nasal cannulaO2 Flow Rate 2 9YxO248/13 05/23306095 1875 0942 1000 1341Temp 98.1 98.3Pulse 89 100 96Resp 17 17B/P 178/64 178/64 182/83 168/77B/P MeanPulse Ox 98 95O2 Delivery Nasal cannula Nasal cannula Nasal cannulaO2 Flow Rate 3L 2L 2VZlO436/569760Mkom 98.1Pulse 100Resp 17B/P 166/76B/P MeanPulse Ox 99O2 Delivery Nasal cannulaO2 Flow Rate 0YQqI6Uwuzcz/OutputIntake/Output Summary 24 hours12 1900 05/23 0700Intake Total [...] skin tearPsych/Mental Status mood neutralResultsLaboratory DataRecent Labs-24 hours05/23751394 0622ChemistrySodium (136 - 147 mmol/L) 141Potassium (3.5 [...] subcuvertebral body fracture-Leukocytosis trending down. C-reactive protein uafoeuc-Diyfgs-nq blood cultures-Pain management.2. PneumoniaStatus AcuteA&PC-reactive protein improvingZosyn. [...] pyelonephritis on CT abdomen pelvis-Continue with Zosyn tz-Sebxru-xe urine culture.5. HLD (hyperlipidemia)Status ChronicA&PContinue statin6. Spinal stenosisStatus ChronicA&PChronic history of spinal stenosis continue with pain management.7. DepressionStatus ChronicA&PContinue with duloxetine., BuSpar8. HypothyroidismStatus ChronicA&PCheck TSH.-Continue with levothyroxine.9. HTN (hypertension)Status ChronicA&P-Continue with lisinopril and increase hydralazine 50 mg p.o. 3 times daily,Imdur p.o. 90md dailyblood pressure control-Monitor blood pressure.10. CKD (chronic kidney disease)Status ChronicA&PHistory of CKD. SU at [facility].-Monitor renal function.11. DiabetesStatus ChronicA&PComplicated with hypoglycemia and hyperglycemiaLevemir 8 units daily, continue NovoLog via protocol, close monitoring, rehaejxmrvrmu90. AnxietyStatus AcuteA&Mendoza chronic benzodiazepines. Will continue.13. PVD (peripheral vascular disease)Status ChronicA&PHistory of stent placement.Continue with Plavix, statin-Continue to monitor.14. DebilityStatus ChronicA&P-Supportive care-Consider PT/OT when patient is more alert.15. HypoalbuminemiaStatus ChronicA&PEncourage p.o. intake. Nutrition supplementation.Ensure p.o. 3 times daily.16. Polysubstance abuseStatus ChronicA&PThiamine, folic acid, multivitamin, Ativan as needed for fqmjfrzagp42. HypernatremiaStatus AcuteA&HAnkvdkrix60. HyperglycemiaStatus AcuteA&PSecondary to steroid, will be very cautious in increasing coverage due toepisode of hypoglycemia, taper pkiuqph16. T1-T2 SUBACUTE FRACTUREStatus AcuteA&PPT, OT, fall precaution, pain medication as orderedAdditional Rcjdk25-geok-jvt female patient underlying medical history of COPD O2 dependent,spinal stenosis, depression, dyslipidemia, type 2 diabetes, nicotine addiction,anxiety, hypothyroidism, debility, CKD, peripheral vascular disease,hypoalbuminemia, polysubstance abuse, [facility], [facility], deconditioning with frequentfall, transferred given complains of back pain and worsening leukocytosisDVT prophylaxis Heparin subcuDisposition pending clinical improvement, [place] [facility]FResuscitation status Full codePlan discussed with patient, sonCase discussed with rn case manager, nursing staffVTE ProphylaxisVTE Prophylaxis: heparin SQDATE SIGNED: 04/13/21 Electronically SignedTIME SIGNED: 2021 SAAD FRIED MD Name Value Range Interpretation Code Description Data Rosa rce(s) Supporting Document(s) ID Date Data Source [id number] 05/23/2020 11:37:00 PM EDT [facility] Name Value Range Interpretation Code Description Data Rosa rce(s) Supporting Document(s) FGLU 190 mg/dL 70-110 [facility] ID Date Data Source [id number] 05/24/2020 02:34:00 AM EDT [facility] Name Value Range Interpretation Code Description Data Rosa rce(s) Supporting Document(s) FGLU 304 mg/dL 70-110 [facility] ID Date Data Source [id number] 05/23/2020 08:21:00 AM EDT [facility] Name Value Range Interpretation Code Description Data Rosa rce(s) Supporting Document(s) FGLU 271 mg/dL 70-110 [facility] ID Date Data Source [id number] 05/23/2020 05:59:00 AM EDT [facility] Name Value Range Interpretation Code Description Data Rosa rce(s) Supporting Document(s) C-REACTIVE PROT 1.72 mg/dL 0.00-0.49 [facility] ID Date Data Source [id number] 05/23/2020 05:59:00 AM EDT [facility] Name Value Range Interpretation Code Description Data Rosa rce(s) Supporting Document(s) MAGNESIUM 2.0 mg/dL 1.6-2.6 [facility] ID Date Data Source [id number] 05/23/2020 05:59:00 AM EDT [facility] Name Value Range Interpretation Code Description Data Rosa rce(s) Supporting Document(s) GLU 225 mg/dL 70-110 [facility] Patients taking Sulfasalazine may have f alsely depressedGlucose levels. Patients taking Sulfapyridine may havefalsely elevated Glucose levels. Patients should be drawnfor Glucose before the initial administration of eitherdrug. BUN 28 mg/dL 7-23 [facility] CRE 1.040 mg/dL 0.500-1.300 [facility] GFR 55 mL/min [facility] CHLORIDE 111 mmol/L 99-110 [facility] NA 141 mmol/L 136-147 [facility] POTASSIUM 4.3 mmol/L 3.5-5.1 [facility] TCO2 28 mmol/L 20-33 [facility] ANION GAP 6.3 10.0-20.0 [facility] CA 8.2 mg/dL 8.3-10.7 [facility] ALKALINE PHOS 140 U/L 45-117 [facility] TP 5.4 g/dL 6.0-7.8 [facility] ALB 2.5 g/dL 3.5-5.0 [facility] ESRD Dialysis patient Albumin reference range: 2.9-4.4 g/dL GL 2.9 g/dL 2.3-3.5 [facility] A/G 0.9 1.0-2.5 [facility] T. BILIRUBIN 0.5 mg/dL 0.1-1.1 [facility] [employer] [place] Total Bilirubin is n ot recommended forpatients undergoing treatment with eltrombopag (Promacta)due to the potential for falsely elevated results. ALTI 36 U/L 6-54 [facility] Patients taking Sulfasalazine and/or Sul fapyridine may havefalsely depressed ALT levels. Patients should be drawn forALT before the initial administration of either drug. AST 25 U/L 6-38 [facility] Patients taking Sulfasalazine and/or Sul fapyridine may havefalsely depressed AST levels. Patients should be drawn forAST before the initial administration of either drug. ID Date Data Source [id number] 05/23/2020 05:14:00 AM EDT [facility] Name Value Range Interpretation Code Description Data Rosa rce(s) Supporting Document(s) WBC 12.48 x10E3/uL 4.0-10.5 [facility] RBC 2.65 x10E6/uL 4.20-5.40 [facility] Hemoglobin 8.0 g/dL 12.0-16.0 [facility] Hematocrit 24.7 % 37.0-47.0 [facility] MCV 93.2 fL 81.0-99.0 [facility] MCH 30.2 pg 27.0-31.0 [facility] MCHC 32.4 g/dL 32.7-35.6 L [facility] RDW 14.8 % 11.5-14.0 [facility] Platelet count 146 x10E3/uL 150-450 [facility] ital MPV 10.1 fl 6.9-9.5 H [facility] Neutrophils 88.5 % 34-64 H [facility] Lymphocytes 4.8 % 25-45 L [facility] Monocytes 4.6 % 1.7-10.6 N [facility] Eosinophils 0.2 % 0.4-7.0 L [facility] Basophils 0.1 % 0.1-2.0 N [facility] Imm. Gran. 1.8 % 0.1-2.0 N [facility] Abs. Neutro. 11.04 x10E3/uL 1.2-7.6 [facility] Abs. Lymph. 0.60 x10E3/uL 1.0-3.5 [facility] Abs. [place]. 0.58 x10E3/uL 0.1-1.0 [facility] Abs. Eosin. 0.02 x10E3/uL 0.1-0.7 [facility] Abs. Baso. 0.01 x10E3/uL 0.0-0.1 [facility] Abs. Imm. Gran. 0.23 x10E3/uL 0.0-0.1 [facility] ANRBC% 0 % 0 [facility] ID Date Data Source [id number] 05/22/2020 04:34:00 PM EDT [facility] Name Value Range Interpretation Code Description Data Rosa rce(s) Supporting Document(s) FGLU 348 mg/dL 70-110 [facility] ID Date Data Source [id number] 05/22/2020 02:57:00 PM EDT [facility] [address] [id number] NOTEPATIENT NAME: JOHNTURE,ELA BATTENDING PHYSICIAN: MICHAEL WANG MDAUTHOR: Breezy GA, Zhang. DATE: 05/18/20 MR#: [id number] NOTE DATE: 05/22/20 RM#: [id number] TIME: 1531 : 45SubjectiveCC/Hx Present IllnessBack painEvents Since Last EntryCurrently alert oriented x3. Very poor historian. On chronic oxygen. Patientcomfortable, reported chronic back pain. Following command, tolerating p.o.almost back to baseline. Denies chest pain. Afebrile. All other review ofsystem negativeObjectiveVital SignsVital Signs-24 HRS05/21062910 2691 2200 0128Temp 99.3 99.0 98.7Pulse 95 95 91Resp 16 16 16B/P 190/88 144/77 147/63B/P MeanPulse Ox 100 98 95O2 Delivery Nasal cannula Nasal cannula Nasal cannula Nasal cannulaO2 Flow Rate 3L 2 2L 4QmF418/05/22201180 8275 0835 1000 1426Temp 98.6 97.3Pulse 95 98Resp 16 17B/P 165/75 163/83 163/83 164/80B/P MeanPulse Ox 96 95O2 Delivery Nasal cannula Nasal cannula Nasal cannulaO2 Flow Rate 2 2L 6RZoU4Dylcqo/OutputIntake/Output Summary 24 hours05/21 1900 05/22 0700Intake Total [...] tearPsych/Mental Status mood n eutralResultsLaboratory DataRecent Labs-24 hours05/21475180 6030 0615ChemistrySodium (136 - 147 mmol/L) 145Potassium (3.5 [...] subcuvertebral body fracture-Leukocytosis trending down. C-reactive protein mhmupyu-Twpqeh-dz blood cultures-Pain management.2. PneumoniaStatus AcuteA&PC-reactive protein improvingZosyn. [...] pyelonephritis on CT abdomen pelvis-Continue with Zosyn gd-Maavee-wq urine culture.5. HLD (hyperlipidemia)Status ChronicA&PContinue statin6. Spinal stenosisStatus ChronicA&PChronic history of spinal stenosis continue with pain management.7. DepressionStatus ChronicA&PContinue with duloxetine., BuSpar8. HypothyroidismStatus ChronicA&PCheck TSH.-Continue with levothyroxine.9. HTN (hypertension)Status ChronicA&P-Continue with lisinopril and increase hydralazine 50 mg p.o. 3 times daily,restarting NorvascImdur 30 mg p.o. daily added for better blood pressure control-Monitor blood pressure.10. CKD (chronic kidney disease)Status ChronicA&PHistory of CKD. SU at [facility].-Monitor renal function.11. DiabetesStatus ChronicA&PComplicated with hypoglycemia and hyperglycemiaLevemir 8 units daily, continue NovoLog via protocol, close monitoring, sysxcvhakvbsj91. AnxietyStatus AcuteA&Mendoza chronic benzodiazepines. Will continue.13. PVD (peripheral vascular disease)Status ChronicA&PHistory of stent placement.Continue with Plavix, statin-Continue to monitor.14. DebilityStatus ChronicA&P-Supportive care-Consider PT/OT when patient is more alert.15. HypoalbuminemiaStatus ChronicA&PEncourage p.o. intake. Nutrition supplementation.Ensure p.o. 3 times daily.16. Polysubstance abuseStatus ChronicA&PThiamine, folic acid, multivitamin, Ativan as needed for ofwztyulpp36. HypernatremiaStatus AcuteA&QZyjvhpblv37. HyperglycemiaStatus AcuteA&PSecondary to steroid, will be very cautious in increasing coverage due toepisode of hypoglycemia, taper steroidAdditional Gbnkj44-uhdb-usq female patient underlying medical history of COPD O2 dependent,spinal stenosis, depression, dyslipidemia, type 2 diabetes, nicotine addiction,anxiety, hypothyro idism, debility, CKD, peripheral vascular disease,hypoalbuminemia, polysubstance abuse, initially admitted to [facility] for right upper lobe pneumonia, sepsis, deconditioning with frequentfall, transferred given complains of back pain and worsening leukocytosisDVT prophylaxis Heparin subcuDisposition pending clinical improvement, [place] [facility]FResuscitation status Full codePlan discussed with patientCase discussed with rn case manager, nursing staffVTE ProphylaxisVTE Prophylaxis: Heparin subcu.DATE SIGNED: 05/22/20 Electronically SignedTIME SIGNED: 153 SAAD FRIED MD Name Value Range Interpretation Code Description Data Rosa rce(s) Supporting Document(s) ID Date Data Source [id number] 05/22/2020 04:14:00 PM EDT [facility] Name Value Range Interpretation Code Description Data Rosa rce(s) Supporting Document(s) VANCOMYCIN TROU 22.1 ug/mL 5-10 [facility] FOR SKIN AND SKIN STRUCTURE INFECTIONS, GUIDELINES RECOMMENDA TROUGH OF 10. FOR SEVERE INFECTIONS, (PNEUMONIA, OSTEOMYELITIS, MENINGITISAND BACTEREMIA) A TARGET TROUGH OF 15 TO 20 IS RECOMMENDED. ID Date Data Source [id number] 05/22/2020 02:26:00 PM EDT [facility] Exam Number: [id number] OF EXAMINATIO N: 05/22/2020 9:00 EDTMRI L-SPINE W/O FOL BY W/ CONTHISTORY: TendernessMulti-echo, multiplanar imaging of the lumbar spine was obtainedwithout and with contrast .FINDINGS:Decreased signal intensity on T2-weighted images is present in thelumbar intervertebral discs. The L3-4 through L5-S1 intervertebraldiscs are decreased in height. These findings are consistent with discdegeneration.I there is no disc bulge or herniation at the L1-2 level. The V1tfzvuf exit the neural foramina without compression.A diffuse [...] Name Value Range Interpretation Code Description Data [facility](s) Supporting Document(s) ID Date Data Source [id number] 05/22/2020 12:41:00 PM EDT [facility] Progress Note GeneralEncounter:Chart re viewed. 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, normal mood/affect, [...] rce(s) Supporting Document(s) ID Date Data Source [id number] 05/22/2020 11:35:00 AM EDT [facility] Exam Number: [id number] OF EXAMINATIO N: 05/22/2020 9:00 EDTMRI T-SPINE [...] rce(s) Supporting Document(s) ID Date Data Source [id number] 05/23/2020 12:09:00 AM EDT [facility] Name Value Range Interpretation Code Description Data Rosa rce(s) Supporting Document(s) FGLU 325 mg/dL 70-110 [facility] ID Date Data Source [id number] 05/22/2020 07:22:00 AM EDT [facility] Name Value Range Interpretation Code Description Data Rosa rce(s) Supporting Document(s) C-REACTIVE PROT 0.96 mg/dL 0.00-0.49 [facility] ID Date Data Source [id number] 05/22/2020 07:22:00 AM EDT [facility] Name Value Range Interpretation Code Description Data Rosa rce(s) Supporting Document(s) MAGNESIUM 2.0 mg/dL 1.6-2.6 N [facility] ID Date Data Source [id number] 05/22/2020 07:22:00 AM EDT [facility] Name Value Range Interpretation Code Description Data Rosa rce(s) Supporting Document(s) GLU 217 mg/dL 70-110 [facility] Patients taking Sulfasalazine may have f alsely depressedGlucose levels. Patients taking Sulfapyridine may havefalsely elevated Glucose levels. Patients should be drawnfor Glucose before the initial administration of eitherdrug. BUN 23 mg/dL 7-23 [facility] CRE 0.901 mg/dL 0.500-1.300 [facility] GFR > 60 mL/min [facility] CHLORIDE 114 mmol/L 99-110 [facility] NA 145 mmol/L 136-147 [facility] POTASSIUM 3.9 mmol/L 3.5-5.1 [facility] TCO2 27 mmol/L 20-33 [facility] ANION GAP 7.9 10.0-20.0 [facility] CA 8.0 mg/dL 8.3-10.7 L [facility] ALKALINE PHOS 144 U/L 45-117 [facility] TP 5.4 g/dL 6.0-7.8 [facility] ALB 2.5 g/dL 3.5-5.0 [facility] ESRD Dialysis patient Albumin reference range: 2.9-4.4 g/dL GL 2.9 g/dL 2.3-3.5 [facility] A/G 0.9 1.0-2.5 [facility] T. BILIRUBIN 0.5 mg/dL 0.1-1.1 [facility] [employer] [place] Total Bilirubin is n ot recommended forpatients undergoing treatment with eltrombopag (Promacta)due to the potential for falsely elevated results. ALTI 38 U/L 6-54 [facility] Patients taking Sulfasalazine and/or Sul fapyridine may havefalsely depressed ALT levels. Patients should be drawn forALT before the initial administration of either drug. AST 27 U/L 6-38 [facility] Patients taking Sulfasalazine and/or Sul fapyridine may havefalsely depressed AST levels. Patients should be drawn forAST before the initial administration of either drug. ID Date Data Source [id number] 05/22/2020 07:04:00 AM EDT [facility] Name Value Range Interpretation Code Description Data Rosa rce(s) Supporting Document(s) WBC 13.34 x10E3/uL 4.0-10.5 [facility] RBC 2.90 x10E6/uL 4.20-5.40 [facility] Hemoglobin 8.8 g/dL 12.0-16.0 [facility] Hematocrit 27.2 % 37.0-47.0 [facility] MCV 93.8 fL 81.0-99.0 [facility] MCH 30.3 pg 27.0-31.0 [facility] MCHC 32.4 g/dL 32.7-35.6 [facility] RDW 15.3 % 11.5-14.0 [facility] Platelet count 141 x10E3/uL 150-450 [facility] ital MPV 10.1 fl 6.9-9.5 [facility] Neutrophils 84.2 % 34-64 H [facility] Lymphocytes 7.2 % 25-45 L [facility] Monocytes 6.2 % 1.7-10.6 N [facility] Eosinophils 1.3 % 0.4-7.0 N [facility] Basophils 0.1 % 0.1-2.0 N [facility] Imm. Gran. 1.0 % 0.1-2.0 N [facility] Abs. Neutro. 11.22 x10E3/uL 1.2-7.6 [facility] Abs. Lymph. 0.96 x10E3/uL 1.0-3.5 [facility] Abs. [place]. 0.83 x10E3/uL 0.1-1.0 [facility] Abs. Eosin. 0.18 x10E3/uL 0.1-0.7 [facility] Abs. Baso. 0.01 x10E3/uL 0.0-0.1 [facility] Abs. Imm. Gran. 0.14 x10E3/uL 0.0-0.1 [facility] ANRBC% 0 % 0 [facility] ID Date Data Source [id number] 05/23/2020 09:11:00 AM EDT [facility] Name Value Range Interpretation Code Description Data Rosa rce(s) Supporting Document(s) FGLU 224 mg/dL 70-110 [facility] ID Date Data Source [id number] 05/23/2020 12:07:00 AM EDT [facility] Name Value Range Interpretation Code Description Data Rosa rce(s) Supporting Document(s) FGLU 201 mg/dL 70-110 H [facility] ID Date Data Source [id number] 05/21/2020 06:03:00 PM EDT [facility] [address] [id number] NOTEPATIENT NAME: ELA PONCETENKEIKO PHYSICIAN: MICHAEL WANG MDAUTHOR: Breezy GA, Zhang. DATE: 05/18/20 MR#: [id number] NOTE DATE: 05/21/20 RM#: [id number] TIME: 1814 : 45SubjectiveCC/Hx Present IllnessBack painEvents Since Last EntryCurrently alert oriented x2. Very poor historian. On chronic oxygen. Patientcomfortable, reported chronic back pain. Following command, tolerating p.o.Seems more responsive today. Denies chest pain. Afebrile. All other reviewof system negativeObjectiveVital SignsVital Signs-24 HRS05/[id number] 7147 0142 0455 0802Temp 98.7 97.1 97.2Pulse 101 86 102Resp 18 17 22B/P 166/71 140/88 140/88B/P MeanPulse Ox 89 90 95O2 Delivery Nasal cannula Nasal cannula Nasal cannulaO2 Flow Rate 3L 2L [id number] 7745 1350 1710Temp 97.6 98.2 99.3Pulse 97 100 95Resp 18 16 16B/P 140/86 152/86 158/78 190/88B/P MeanPulse Ox 98 98 100O2 Delivery Nasal cannula Nasal cannula Nasal cannulaO2 Flow Rate 2 3L 7JCtT2Fjdpfe/OutputIntake/Output Summary 24 hours05/200 05/21 0700Intake Total 1150 [...] stenosis, possible concern for discitis. Patient transferred [facility] for MRI thoracic and lumbar spine.-We will obtain MRI of the thoracic and lumbar spine.-Patient on vancomycin IV and Zosyn IV-Leukocytosis trending down. C-reactive protein ccaohup-Bbzvsh-gp blood cultures-Pain management.unable to obtain MRI due [...] pyelonephritis on CT abdomen pelvis-Continue with Zosyn fg-Ypuevf-ow urine culture.5. HLD (hyperlipidemia)Status ChronicA&PContinue statin6. Spinal stenosisStatus ChronicA&PChronic history of spinal stenosis continue with pain management.7. DepressionStatus ChronicA&PContinue with duloxetine., BuSpar8. HypothyroidismStatus ChronicA&PCheck TSH.-Continue with levothyroxine.9. HTN (hypertension)Status ChronicA&P-Continue with lisinopril and increase hydralazine 50 mg p.o. 3 times daily,restarting Norvasc-Monitor blood pressure.10. CKD (chronic kidney disease)Status ChronicA&PHistory of CKD. SU at [facility].-Monitor renal function.11. DiabetesStatus ChronicA&PComplicated with hypoglycemia and hyperglycemiaLevemir 6 units daily, continue NovoLog via protocol, close monitoring, lucgccdiupmuj36. AnxietyStatus AcuteA&Mendoza chronic benzodiazepines. Will continue.13. PVD (peripheral vascular disease)Status ChronicA&PHistory of stent placement.Continue with Plavix, statin-Continue to monitor.14. DebilityStatus ChronicA&P-Supportive care- Consider PT/OT when patient is more alert.15. HypoalbuminemiaStatus ChronicA&PEncourage p.o. intake. Nutrition supplementation.Ensure p.o. 3 times daily.16. Polysubstance abuseStatus ChronicA&PThiamine, folic acid, multivitamin, Ativan as needed for jsymlffuvs28. HypernatremiaStatus AcuteA&PLikely secondary to IV fluids, encourage oral hydration. Mcqdaaelr80. HyperglycemiaStatus AcuteA&PSecondary to steroid, will be very cautious in increasing coverage due toepisode of hypoglycemia, taper steroidAdditional Bhuim41-dexo-tsj female patient underlying medical history of COPD O2 dependent,spinal stenosis, depression, dyslipidemia, type 2 diabetes, nicotine addiction,anxiety, hypothyroidism, debility, CKD, peripheral vascular disease,hypoalbuminemia, polysubstance abuse, initially admitted to [facility] for right upper lobe pneumonia, sepsis, deconditioning with frequentfall, transferred given complains of back pain and worsening leukocytosisDVT prophylaxis Heparin subcuDisposition pending clinical improvement we will reattempt to get MRIResuscitation status Full codeCase discussed with rn case manager, nursing staffVTE ProphylaxisVTE Prophylaxis: Heparin subcu.DATE SIGNED: 05/21/20 Electronically SignedTIME SIGNED: 1814 SAAD FRIED MD Name Value Range Interpretation Code Description Data Rosa rce(s) Supporting Document(s) ID Date Data Source [id number] 05/21/2020 06:55:00 PM EDT [facility] Name Value Range Interpretation Code Description Data Rosa rce(s) Supporting Document(s) FGLU 287 mg/dL 70-110 [facility] ID Date Data Source [id number] 05/22/2020 02:28:00 AM EDT [facility] jer Name Value Range Interpretation Code Description Data Rosa rce(s) Supporting Document(s) FGLU 210 mg/dL 70-110 [facility] ID Date Data Source [id number] 05/21/2020 06:53:00 PM EDT [facility] jer Name Value Range Interpretation Code Description Data Rosa rce(s) Supporting Document(s) FGLU 343 mg/dL 70-110 H [facility] ID Date Data Source [id number] 05/21/2020 10:26:00 AM EDT [facility] COMMENTS TO LAB: CRITICAL HIGH Name Value Range Interpretation Code Description Data Rosa rce(s) Supporting Document(s) GLU 453 mg/dL 70-110 [facility] Patients taking Sulfasalazine may have f alsely depressedGlucose levels. Patients taking Sulfapyridine may havefalsely elevated Glucose levels. Patients should be drawnfor Glucose before the initial administration of eitherdrug. ID Date Data Source [id number] 05/21/2020 07:55:00 AM EDT [facility] COMMENTS TO LAB: CRHI BS Name Value Range Interpretation Code Description Data Rosa rce(s) Supporting Document(s) GLU 433 mg/dL 70-110 [facility] Patients taking Sulfasalazine may have f alsely depressedGlucose levels. Patients taking Sulfapyridine may havefalsely elevated Glucose levels. Patients should be drawnfor Glucose before the initial administration of eitherdrug. ID Date Data Source [id number] 05/21/2020 05:21:00 AM EDT [facility] Name Value Range Interpretation Code Description Data Rosa rce(s) Supporting Document(s) VANCOMYCIN RAND 21.2 ug/mL 5-10 PH [facility] ID Date Data Source [id number] 05/21/2020 05:09:00 AM EDT [facility] jer Name Value Range Interpretation Code Description Data Rosa rce(s) Supporting Document(s) C-REACTIVE PROT 2.01 mg/dL 0.00-0.49 H [facility] ID Date Data Source [id number] 05/21/2020 05:09:00 AM EDT [facility] jer Name Value Range Interpretation Code Description Data Rosa rce(s) Supporting Document(s) MAGNESIUM 2.2 mg/dL 1.6-2.6 N [facility] ID Date Data Source [id number] 05/21/2020 05:09:00 AM EDT [facility] Name Value Range Interpretation Code Description Data Rosa rce(s) Supporting Document(s) GLU 345 mg/dL 70-110 [facility] Patients taking Sulfasalazine may have f alsely depressedGlucose levels. Patients taking Sulfapyridine may havefalsely elevated Glucose levels. Patients should be drawnfor Glucose before the initial administration of eitherdrug. BUN 24 mg/dL 7-23 H [facility] CRE 1.010 mg/dL 0.500-1.300 [facility] GFR 57 mL/min [facility] CHLORIDE 113 mmol/L 99-110 H [facility] NA 146 mmol/L 136-147 [facility] POTASSIUM 3.4 mmol/L 3.5-5.1 L [facility] TCO2 27 mmol/L 20-33 [facility] ANION GAP 9.4 10.0-20.0 L [facility] CA 8.3 mg/dL 8.3-10.7 [facility] ALKALINE PHOS 148 U/L 45-117 H [facility] TP 5.5 g/dL 6.0-7.8 [facility] ALB 2.7 g/dL 3.5-5.0 [facility] ESRD Dialysis patient Albumin reference range: 2.9-4.4 g/dL GL 2.8 g/dL 2.3-3.5 [facility] A/G 1.0 1.0-2.5 [facility] T. BILIRUBIN 0.6 mg/dL 0.1-1.1 [facility] [employer] [place] Total Bilirubin is n ot recommended forpatients undergoing treatment with eltrombopag (Promacta)due to the potential for falsely elevated results. ALTI 46 U/L 6-54 [facility] Patients taking Sulfasalazine and/or Sul fapyridine may havefalsely depressed ALT levels. Patients should be drawn forALT before the initial administration of either drug. AST 32 U/L 6-38 [facility] Patients taking Sulfasalazine and/or Sul fapyridine may havefalsely depressed AST levels. Patients should be drawn forAST before the initial administration of either drug. ID Date Data Source [id number] 05/21/2020 04:46:00 AM EDT [facility] Name Value Range Interpretation Code Description Data Rosa rce(s) Supporting Document(s) WBC 13.24 x10E3/uL 4.0-10.5 [facility] RBC 2.89 x10E6/uL 4.20-5.40 [facility] Hemoglobin 8.8 g/dL 12.0-16.0 [facility] Hematocrit 26.9 % 37.0-47.0 [facility] MCV 93.1 fL 81.0-99.0 [facility] MCH 30.4 pg 27.0-31.0 [facility] MCHC 32.7 g/dL 32.7-35.6 [facility] RDW 15.1 % 11.5-14.0 [facility] Platelet count 153 x10E3/uL 150-450 [facility] ital MPV 9.7 fl 6.9-9.5 H [facility] Neutrophils 94.0 % 34-64 H [facility] Lymphocytes 2.4 % 25-45 L [facility] Monocytes 2.0 % 1.7-10.6 N [facility] Eosinophils 0 % 0.4-7.0 L [facility] Basophils 0.1 % 0.1-2.0 N [facility] Imm. Gran. 1.5 % 0.1-2.0 N [facility] Abs. Neutro. 12.45 x10E3/uL 1.2-7.6 H [facility] Abs. Lymph. 0.32 x10E3/uL 1.0-3.5 [facility] Abs. [place]. 0.26 x10E3/uL 0.1-1.0 N [facility] Abs. Eosin. 0.00 x10E3/uL 0.1-0.7 [facility] Abs. Baso. 0.01 x10E3/uL 0.0-0.1 N [facility] Abs. Imm. Gran. 0.20 x10E3/uL 0.0-0.1 [facility] ANRBC% 0 % 0 N [facility] DIFFERENTIAL CONFIRMED BY SLIDE REVIEW. ID Date Data Source [id number] 05/21/2020 12:46:00 AM EDT [facility] Name Value Range Interpretation Code Description Data Rosa rce(s) Supporting Document(s) FGLU 326 mg/dL 70-110 H [facility] ID Date Data Source [id number] 05/20/2020 08:01:00 PM EDT [facility] Name Value Range Interpretation Code Description Data Rosa rce(s) Supporting Document(s) FGLU 71 mg/dL 70-110 N [facility] ID Date Data Source [id number] 05/20/2020 03:28:00 PM EDT [facility] Name Value Range Interpretation Code Description Data Rosa rce(s) Supporting Document(s) VANCOMYCIN TROU 19.1 ug/mL 5-10 [facility] FOR SKIN AND SKIN STRUCTURE INFECTIONS, GUIDELINES RECOMMENDA TROUGH OF 10. FOR SEVERE INFECTIONS, (PNEUMONIA, OSTEOMYELITIS, MENINGITISAND BACTEREMIA) A TARGET TROUGH OF 15 TO 20 IS RECOMMENDED. ID Date Data Source [id number] 05/20/2020 11:56:00 AM EDT [facility] [place] [address] [id number] NOTEPATIENT NAME: ELA PONCE PHYSICIAN: MICHAEL WANG, MDAUTHOR: Breezy [place], Zhang. DATE: 05/18/20 MR#: [id number] NOTE DATE: 05/20/20 RM#: [id number] TIME: 1210 : 45SubjectiveCC/Hx Present IllnessBack painEvents Since Last EntryCurrently alert oriented x1. Very poor historian. On chronic oxygen. Furtherhistory limited. Reported thirst, would like to drink some water. Toleratingapplesauce . Seems more responsive today.ObjectiveVital SignsVital Signs-24 HRS05/[id number] 2755 2145 0209Temp 99.0 98.7 97.6Pulse 99 83 95Resp 18 18 20B/P 132/78 154/72 158/73B/P MeanPulse Ox 96 94 96O2 Delivery Nasal cannula Nasal cannula Nasal cannulaO2 Flow Rate 3 3L 9YFbU921/05/20 [id number] 5551 0902 0922Temp 97.8Pulse 107Resp 24B/P 188/103 161/78 161/78B/P MeanPulse Ox 96O2 Delivery MD AT BEDSIDE Nasal cannula Nasal cannulaO2 Flow Rate 3LNC 3L 2LvV5Bxmnvx/OutputIntake/Output Summary 24 hours05/19 1900 05/20 0700Intake Total [...] stenosis, possible concern for discitis. Patient transferred [facility] for MRI thoracic and lumbar spine.-We will [...] pyelonephritis on CT abdomen pelvis-Continue with Zosyn qu-Atcsij-mc urine culture.5. HLD (hyperlipidemia)Status ChronicA&PContinue statin6. Spinal stenosisStatus ChronicA&PChronic history of spinal stenosis continue with pain management.7. DepressionStatus ChronicA&PContinue with duloxetine., BuSpar8. HypothyroidismStatus ChronicA&PCheck TSH.-Continue with levothyroxine.9. HTN (hypertension)Status ChronicA&P-Continue with lisinopril and increase hydralazine 50 mg p.o. twice daily.-Monitor blood pressure.10. CKD (chronic kidney disease)Status ChronicA&PHistory of CKD. SU at [facility].-Monitor renal function.11. DiabetesStatus ChronicA&PHypoglycemia, Levemir dose reduced, continue NovoLog via protocol, closemonitoring,12. AnxietyStatus AcuteA&Mendoza chronic benzodiazepines. Will continue.13. PVD (peripheral vascular disease)Status ChronicA&PHistory of stent placement.Continue with Plavix, statin-Continue to monitor.14. DebilityStatus ChronicA&P-Supportive care-Consider PT/OT when patient is more alert.15. HypoalbuminemiaStatus ChronicA&PEncourage p.o. intake. Nutrition supplementation.Ensure p.o. 3 times daily.16. Polysubstance abuseStatus ChronicA&PThiamine, folic acid, multivitamin, Ativan as needed for uxwjufzjuw09. HypernatremiaStatus AcuteA&PLikely secondary to IV fluids, encourage oral hydration. Patient currentlydrinking lots of water.Additional Otkwa92-bnyz-hsk female patient underlying medical history of COPD O2 dependent,spinal stenosis, depression, dyslipidemia, type 2 diabetes, nicotine addiction,anxiety, hypothyroidism, debility, CKD, peripheral vascular disease,hypoalbuminemia, polysubstance abuse, initially admitted to [facility] for right upper lobe pneumonia, sepsis, deconditioning with frequentfall, transferred given complains of back pain and worsening leukocytosisDVT prophylaxis Heparin subcuDisposition pending clinical improvement we will reattempt to get MRIResuscitation status Full codeCase discussed with rn case manager, nursing staffVTE ProphylaxisVTE Prophylaxis: Heparin subcu.DATE SIGNED: 05/20/20 Electronically SignedTIME SIGNED: 1210 SAAD FRIED MD Name Value Range Interpretation Code Description Data Rosa rce(s) Supporting Document(s) ID Date Data Source [id number] 05/20/2020 09:32:00 PM EDT [facility] Name Value Range Interpretation Code Description Data Rosa rce(s) Supporting Document(s) FGLU 341 mg/dL 70-110 [facility] ID Date Data Source [id number] 05/21/2020 02:05:00 AM EDT [facility] Name Value Range Interpretation Code Description Data Rosa rce(s) Supporting Document(s) FGLU 316 mg/dL 70-110 [facility] ID Date Data Source [id number] 05/20/2020 06:21:00 AM EDT [facility] Name Value Range Interpretation Code Description Data Rosa rce(s) Supporting Document(s) USTSH 0.82 uIU/mL 0.270-4.200 [facility] ID Date Data Source [id number] 05/20/2020 05:41:00 AM EDT [facility] Name Value Range Interpretation Code Description Data Rosa rce(s) Supporting Document(s) C-REACTIVE PROT 4.82 mg/dL 0.00-0.49 [facility] ID Date Data Source [id number] 05/20/2020 05:41:00 AM EDT [facility] Name Value Range Interpretation Code Description Data Rosa rce(s) Supporting Document(s) MAGNESIUM 2.1 mg/dL 1.6-2.6 N [facility] ID Date Data Source [id number] 05/20/2020 05:41:00 AM EDT [facility] Name Value Range Interpretation Code Description Data Rosa rce(s) Supporting Document(s) GLU 253 mg/dL 70-110 [facility] Patients taking Sulfasalazine may have f alsely depressedGlucose levels. Patients taking Sulfapyridine may havefalsely elevated Glucose levels. Patients should be drawnfor Glucose before the initial administration of eitherdrug. BUN 20 mg/dL 7-23 [facility] CRE 0.747 mg/dL 0.500-1.300 [facility] GFR > 60 mL/min [facility] CHLORIDE 115 mmol/L 99-110 [facility] NA 150 mmol/L 136-147 [facility] POTASSIUM 3.5 mmol/L 3.5-5.1 [facility] TCO2 26 mmol/L 20-33 [facility] ANION GAP 12.5 10.0-20.0 [facility] CA 8.4 mg/dL 8.3-10.7 [facility] ALKALINE PHOS 151 U/L 45-117 [facility] TP 4.9 g/dL 6.0-7.8 [facility] ALB 2.6 g/dL 3.5-5.0 [facility] ESRD Dialysis patient Albumin reference range: 2.9-4.4 g/dL GL 2.3 g/dL 2.3-3.5 [facility] A/G 1.1 1.0-2.5 [facility] T. BILIRUBIN 0.7 mg/dL 0.1-1.1 [facility] [employer] [place] Total Bilirubin is n ot recommended forpatients undergoing treatment with eltrombopag (Promacta)due to the potential for falsely elevated results. ALTI 53 U/L 6-54 [facility] Patients taking Sulfasalazine and/or Sul fapyridine may havefalsely depressed ALT levels. Patients should be drawn forALT before the initial administration of either drug. AST 59 U/L 6-38 [facility] Patients taking Sulfasalazine and/or Sul fapyridine may havefalsely depressed AST levels. Patients should be drawn forAST before the initial administration of either drug. ID Date Data Source [id number] 05/20/2020 05:30:00 AM EDT [facility] Name Value Range Interpretation Code Description Data Rosa rce(s) Supporting Document(s) WBC 13.75 x10E3/uL 4.0-10.5 [facility] RBC 2.80 x10E6/uL 4.20-5.40 L [facility] Hemoglobin 8.3 g/dL 12.0-16.0 L [facility] Hematocrit 26.2 % 37.0-47.0 L [facility] MCV 93.6 fL 81.0-99.0 N [facility] MCH 29.6 pg 27.0-31.0 [facility] MCHC 31.7 g/dL 32.7-35.6 L [facility] RDW 14.9 % 11.5-14.0 [facility] Platelet count 137 x10E3/uL 150-450 [facility] ital MPV 10.0 fl 6.9-9.5 H [facility] Neutrophils 93.6 % 34-64 [facility] Lymphocytes 2.6 % 25-45 L [facility] Monocytes 1.9 % 1.7-10.6 [facility] Eosinophils 0 % 0.4-7.0 [facility] Basophils 0.1 % 0.1-2.0 [facility] Imm. Gran. 1.8 % 0.1-2.0 N [facility] Abs. Neutro. 12.87 x10E3/uL 1.2-7.6 [facility] Abs. Lymph. 0.36 x10E3/uL 1.0-3.5 [facility] Abs. [place]. 0.26 x10E3/uL 0.1-1.0 [facility] Abs. Eosin. 0.00 x10E3/uL 0.1-0.7 [facility] Abs. Baso. 0.01 x10E3/uL 0.0-0.1 [facility] Abs. Imm. Gran. 0.25 x10E3/uL 0.0-0.1 [facility] ANRBC% 0 % 0 [facility] DIFFERENTIAL CONFIRMED BY SLIDE REVIEW. ID Date Data Source [id number] 05/20/2020 05:14:00 AM EDT [facility] ANTI-COAGULANTS PT.IS TAKING: None Name Value Range Interpretation Code Description Data Rosa rce(s) Supporting Document(s) INR 0.92 0.91-1.09 [facility] INR THERAPEUTIC RANGES Prophylaxis of ve nous thrombosis ] (high risk surgery) ]Treatment of venous thrombosis ]Treatment of pulmonary embolism ]Prevention of systemic embolism ] 2.0-3.0Tissue heart valves ]Acute myocardial infarction ]Valvular disease ]Atrial fibrillation ]Recurrent systemic embolism ] Mechanical prosthetic heart valves -------- 2.5-3.5 ID Date Data Source [id number] 05/21/2020 02:12:00 PM EDT [facility] Name Value Range Interpretation Code Description Data Rosa rce(s) Supporting Document(s) FGLU 170 mg/dL 70-110 [facility] ID Date Data Source [id number] 05/20/2020 09:34:00 AM EDT [facility] Name Value Range Interpretation Code Description Data Rosa rce(s) Supporting Document(s) MRSA/SAUR SCRN [facility] l S.[facility] ID Date Data Source [id number] 05/19/2020 06:44:00 PM EDT [facility] Name Value Range Interpretation Code Description Data Rosa rce(s) Supporting Document(s) FGLU 53 mg/dL 70-110 [facility] ID Date Data Source [id number] 05/19/2020 04:55:00 PM EDT [facility] [address] [id number] NOTEPATIENT NAME: ELA PONCE PHYSICIAN: MICHAEL WANG, MDAUTHOR: Breezy GA, Zhang. DATE: 05/18/20 MR#: [id number] NOTE DATE: 05/19/20 RM#: [id number] TIME: 1715 [...] Nasal cannulaO2 Flow Rate 2LPM 3LPM 2 6JyP04305/19 0856TempPulseRespB/P 162/82B/P MeanPulse OxO2 Delivery Nasal cannulaO2 Flow Rate 0YtF3Yasazt/OutputIntake/Output Summary 24 hours05/18 1900 05/19 0700Intake Total [...] POSodium Chloride (SODIUM CHLORIDE 0.9%) 1,000 ML .[id number] IVSodium Chloride (Saline Flush Syr(10ML)) 10 ML [...] stenosis, possible concern for discitis. Patient transferred [facility] for MRI thoracic and lumbar spine.-We will [...] pyelonephritis on CT abdomen pelvis-Continue with Zosyn rj-Wmscby-wp urine culture.5. HLD (hyperlipidemia)Status ChronicA&PContinue statin6. Spinal stenosisStatus ChronicA&PChronic history of spinal stenosis continue with pain management.7. DepressionStatus ChronicA&PContinue with duloxetine., BuSpar8. HypothyroidismStatus ChronicA&PCheck TSH.-Continue with levothyroxine.9. HTN (hypertension)Status ChronicA&P-Continue with lisinopril and hydralazine.-Monitor blood pressure.10. CKD (chronic kidney disease)Status ChronicA&PHistory of CKD. SU at [facility]. Creatinine today 0.9.-Monitor renal function.11. DiabetesStatus [...] acid, multivitamin, Ativan as needed for withdrawalAdditional Mkawa81-ceut-fiw female patient underlying medical history of COPD O2 dependent,spinal stenosis, depression, dyslipidemia, type 2 diabetes, nicotine addiction,anxiety, hypothyroidism, debility, CKD, peripheral vascular disease,hypoalbuminemia, polysubstance abuse, initially admitted to [facility] for right upper lobe pneumonia, sepsis, deconditioning with frequentfall, transferred given complains of back pain and worsening leukocytosisDVT prophylaxis Heparin subcuDisposition pending clinical improvement we will reattempt to get MRIResuscitation status Full codeCase discussed with rn case manager, nursing staffVTE ProphylaxisVTE Prophylaxis: Heparin subcu.DATE SIGNED: 05/19/20 Electronically SignedTIME SIGNED: 4923 SAAD FRIED MD Name Value Range Interpretation Code Description Data Rosa rce(s) Supporting Document(s) ID Date Data Source [id number] 05/19/2020 05:09:00 PM EDT [facility] Name Value Range Interpretation Code Description Data Rosa rce(s) Supporting Document(s) VANCOMYCIN TROU 14.4 ug/mL 5-10 [facility] FOR [facility]IN AND SKIN STRUCTURE INFECTIONS, GUIDELINES RECOMMENDA TROUGH OF 10. FOR SEVERE INFECTIONS, (PNEUMONIA, OSTEOMYELITIS, MENINGITISAND BACTEREMIA) A TARGET TROUGH OF 15 TO 20 IS RECOMMENDED. ID Date Data Source [id number] 05/19/2020 04:37:00 PM EDT [facility] Name Value Range Interpretation Code Description Data Rosa rce(s) Supporting Document(s) FGLU 174 mg/dL 70-110 [facility] ID Date Data Source [id number] 05/19/2020 08:46:00 AM EDT [facility] Name Value Range Interpretation Code Description Data Rosa rce(s) Supporting Document(s) CKI 200 U/L 17-150 [facility] ID Date Data Source [id number] 05/19/2020 07:39:00 PM EDT [facility] jer Name Value Range Interpretation Code Description Data Rosa [facility](s) Supporting Document(s) FGLU 337 mg/dL 70-110 [facility] ID Date Data Source [id number] 05/19/2020 07:11:00 AM EDT [facility] Name Value Range Interpretation Code Description Data [facility](s) Supporting Document(s) GLU 319 mg/dL 70-110 [facility] Patients taking Sulfasalazine may have f alsely depressedGlucose levels. Patients taking Sulfapyridine may havefalsely elevated Glucose levels. Patients should be drawnfor Glucose before the initial administration of eitherdrug. BUN 27 mg/dL 7-23 [facility] CRE 0.993 mg/dL 0.500-1.300 [facility] GFR 58 mL/min [facility] CHLORIDE 111 mmol/L 99-110 [facility] NA 146 mmol/L 136-147 [facility] POTASSIUM 3.9 mmol/L 3.5-5.1 [facility] TCO2 27 mmol/L 20-33 [facility] ANION GAP 11.9 10.0-20.0 [facility] CA 8.7 mg/dL 8.3-10.7 [facility] ALKALINE PHOS 110 U/L 45-117 [facility] TP 5.4 g/dL 6.0-7.8 [facility] ALB 2.6 g/dL 3.5-5.0 [facility] ESRD Dialysis patient Albumin reference range: 2.9-4.4 g/dL GL 2.8 g/dL 2.3-3.5 [facility] A/G 0.9 1.0-2.5 [facility] T. BILIRUBIN 0.5 mg/dL 0.1-1.1 [facility] [employer] [place] Total Bilirubin is n ot recommended forpatients undergoing treatment with eltrombopag (Promacta)due to the potential for falsely elevated results. ALTI 40 U/L 6-54 [facility] Patients taking Sulfasalazine and/or Sul fapyridine may havefalsely depressed ALT levels. Patients should be drawn forALT before the initial administration of either drug. AST 32 U/L 6-38 N [facility] Patients taking Sulfasalazine and/or Sul fapyridine may havefalsely depressed AST levels. Patients should be drawn forAST before the initial administration of either drug. ID Date Data Source [id number] 05/19/2020 06:45:00 AM EDT [facility] Name Value Range Interpretation Code Description Data Rosa rce(s) Supporting Document(s) WBC 13.42 x10E3/uL 4.0-10.5 [facility] RBC 2.98 x10E6/uL 4.20-5.40 L [facility] Hemoglobin 9.0 g/dL 12.0-16.0 [facility] Hematocrit 28.1 % 37.0-47.0 [facility] MCV 94.3 fL 81.0-99.0 [facility] MCH 30.2 pg 27.0-31.0 [facility] MCHC 32.0 g/dL 32.7-35.6 [facility] RDW 15.0 % 11.5-14.0 H [facility] Platelet count 144 x10E3/uL 150-450 [facility] MPV 10.0 fl 6.9-9.5 H [facility] Neutrophils 88.7 % 34-64 H [facility] Lymphocytes 3.6 % 25-45 L [facility] Monocytes 5.4 % 1.7-10.6 [facility] Eosinophils 0.8 % 0.4-7.0 [facility] Basophils 0.1 % 0.1-2.0 [facility] Imm. Gran. 1.4 % 0.1-2.0 [facility] Abs. Neutro. 11.89 x10E3/uL 1.2-7.6 [facility] Abs. Lymph. 0.48 x10E3/uL 1.0-3.5 [facility] Abs. [place]. 0.73 x10E3/uL 0.1-1.0 N [facility] Abs. Eosin. 0.11 x10E3/uL 0.1-0.7 [facility] Baso. 0.02 x10E3/uL 0.0-0.1 [facility] Abs. Imm. Gran. 0.19 x10E3/uL 0.0-0.1 H [facility] spital ANRBC% 0 % 0 [facility] DIFFERENTIAL CONFIRMED BY SLIDE REVIEW. ID Date Data Source [id number] 05/19/2020 02:06:00 AM EDT [facility] Name Value Range Interpretation Code Description Data Rosa rce(s) Supporting Document(s) GLU 348 mg/dL 70-110 [facility] Patients taking Sulfasalazine may have f alsely depressedGlucose levels. Patients taking Sulfapyridine may havefalsely elevated Glucose levels. Patients should be drawnfor Glucose before the initial administration of eitherdrug. BUN 27 mg/dL 7-23 [facility] CRE 0.991 mg/dL 0.500-1.300 [facility] GFR 58 mL/min [facility] CHLORIDE 111 mmol/L 99-110 [facility] NA 146 mmol/L 136-147 [facility] POTASSIUM 4.3 mmol/L 3.5-5.1 [facility] TCO2 27 mmol/L 20-33 [facility] ANION GAP 12.3 10.0-20.0 [facility] CA 8.9 mg/dL 8.3-10.7 [facility] ALKALINE PHOS 112 U/L 45-117 [facility] TP 5.3 g/dL 6.0-7.8 [facility] ALB 2.6 g/dL 3.5-5.0 [facility] ESRD Dialysis patient Albumin reference range: 2.9-4.4 g/dL GL 2.7 g/dL 2.3-3.5 [facility] A/G 1.0 1.0-2.5 [facility] T. BILIRUBIN 0.6 mg/dL 0.1-1.1 [facility] [employer] [place] Total Bilirubin is n ot recommended forpatients undergoing treatment with eltrombopag (Promacta)due to the potential for falsely elevated results. ALTI 41 U/L 6-54 [facility] Patients taking Sulfasalazine and/or Sul fapyridine may havefalsely depressed ALT levels. Patients should be drawn forALT before the initial administration of either drug. AST 30 U/L 6-38 [facility] Patients taking Sulfasalazine and/or Sul fapyridine may havefalsely depressed AST levels. Patients should be drawn forAST before the initial administration of either drug. ID Date Data Source [id number] 05/19/2020 01:55:00 AM EDT [facility] Name Value Range Interpretation Code Description Data Rosa rce(s) Supporting Document(s) WBC 14.51 x10E3/uL 4.0-10.5 [facility] RBC 3.16 x10E6/uL 4.20-5.40 [facility] Hemoglobin 9.5 g/dL 12.0-16.0 [facility] Hematocrit 29.7 % 37.0-47.0 [facility] MCV 94.0 fL 81.0-99.0 [facility] MCH 30.1 pg 27.0-31.0 [facility] MCHC 32.0 g/dL 32.7-35.6 [facility] RDW 15.0 % 11.5-14.0 [facility] Platelet count 158 x10E3/uL 150-450 N [facility] ital MPV 9.9 fl 6.9-9.5 [facility] Neutrophils 88.5 % 34-64 H [facility] Lymphocytes 3.6 % 25-45 L [facility] Monocytes 5.7 % 1.7-10.6 [facility] Eosinophils 0.8 % 0.4-7.0 [facility] Basophils 0.2 % 0.1-2.0 [facility] Imm. Gran. 1.2 % 0.1-2.0 [facility] Abs. Neutro. 12.84 x10E3/uL 1.2-7.6 [facility] Abs. Lymph. 0.52 x10E3/uL 1.0-3.5 [facility] Abs. [place]. 0.83 x10E3/uL 0.1-1.0 [facility] Abs. Eosin. 0.11 x10E3/uL 0.1-0.7 [facility] Abs. Baso. 0.03 x10E3/uL 0.0-0.1 N [facility] l Abs. Imm. Gran. 0.18 x10E3/uL 0.0-0.1 H [facility] ANRBC% 0 % 0 [facility] DIFFERENTIAL CONFIRMED BY SLIDE REVIEW. ID Date Data Source [id number] 05/18/2020 11:40:00 PM EDT [facility] ANTI-COAGULANTS PT.IS TAKING: Plavix Name Value Range Interpretation Code Description Data Rosa rce(s) Supporting Document(s) APTT 22.2 SECONDS 21.2-31.2 [facility] NOTE NEW REFERENCE RANGE EFFECTIVE ID Date Data Source [id number] 05/18/2020 11:40:00 PM EDT [facility] ANTI-COAGULANTS PT.IS TAKING: Plavix Name Value Range Interpretation Code Description Data Rosa rce(s) Supporting Document(s) INR 0.91 0.91-1.09 [facility] INR THERAPEUTIC RANGES Prophylaxis of ve nous thrombosis ] (high risk surgery) ]Treatment of venous thrombosis ]Treatment of pulmonary embolism ]Prevention of systemic embolism ] 2.0-3.0Tissue heart valves ]Acute myocardial infarction ]Valvular disease ]Atrial fibrillation ]Recurrent systemic embolism ] Mechanical prosthetic heart valves -------- 2.5-3.5 ID Date Data Source [id number] 05/18/2020 11:01:00 PM EDT [facility] Name Value Range Interpretation Code Description Data Rosa rce(s) Supporting Document(s) TROPONIN HS 67.8 ng/L 3.0-82.3 [facility] ID Date Data Source [id number] 05/18/2020 11:01:00 PM EDT [facility] Name Value Range Interpretation Code Description Data Rosa rce(s) Supporting Document(s) LACTIC ACID COMFORT 0.4 mmol/L 0.4-2.0 [facility] ID Date Data Source [id number] 05/18/2020 11:00:00 PM EDT [facility] Name Value Range Interpretation Code Description Data Rosa rce(s) Supporting Document(s) ESR 36 MM/HR 0-20 H [facility] ID Date Data Source [id number] 05/25/2020 12:12:00 PM EDT [facility] Name Value Range Interpretation Code Description Data Rosa rce(s) Supporting Document(s) [facility] ID Date Data Source [id number] 05/25/2020 12:11:00 PM EDT [facility] Name Value Range Interpretation Code Description Data Rosa rce(s) Supporting Document(s) [facility] ID Date Data Source [id number] 05/18/2020 10:59:00 PM EDT [facility] Name Value Range Interpretation Code Description Data Rosa rce(s) Supporting Document(s) C-REACTIVE PROT 3.66 mg/dL 0.00-0.49 [facility] ID Date Data Source [id number] 05/18/2020 09:29:00 PM EDT [facility] [address] [id number] AND PHYSICALPATIENT NAME: ELA PONCE MR#: [id number] PHYSICIAN: MICHAEL WANG MDAUTHOR: Michael Wang MD DATE: 05/18/20 RM#: [id number] & PHYSICAL DATE: 05/18/20 : 45EVALUATION TIME: Chi Complaint[facility] Presenting [id number] female past medical history of COPD, spinal stenosis, depression,hyperlipidemia, type 2 diabetes, nicotine addiction, anxiety, hypothyroidism,debility, CKD, peripheral vascular disease, hypoalbuminemia, was initiallyadmitted at [facility] being treated for right upper lobe pneumonia andsepsis on antibiotics and extreme deconditioning, unsteady gait and frequentfalls during the hospitalization patient complained of back pain on examinationwas noted to have severe tenderness over the lumbar and thoracic spine. CRPinitially was 6.5 later became elevated to 25 with corresponding rise and WBCto 23. Decision was made to initially transfer patient to [facility] for an MRI momo done to rule out discitis and then patient be transferred back to [facility] however upon arrival at [facility] patient refused the MRI and patient wasbrought back to [facility]. At [facility] patient became agitated andsomewhat combative sustained ecchymosis in bilateral upper extremities.Patient had to be given B-52. [facility] to [facility] again for the second time patientbecame agitated. At [facility] patient was also found to have UTI, CT ofthe abdomen and pelvis showed some questionable/possible pyelonephritis.Patient was given vancomycin and Zosyn at [facility] and transferred to [facility]. When I evaluated patient patient was [...] patient sedated.ExamVital SignsVital Signs-24 HRS05/18 05/18 05/19 05/19096210 1342 0132 0543Temp 97.9 97.4 97.8Pulse 110 99 100Resp 17 17 17B/P 160/91 159/63 160/67B/P MeanPulse Ox 92 98 93O2 Delivery Nasal cannula Nasal cannula Nasal cannula Nasal cannulaO2 Flow Rate 2LPM 3LPM 2 7GwH3Opekfhcr ExaminationGeneral Appearance sedated, Response to verbal and [...] %) 0ESR (0 - 20 MM/HR) 36 H04/493547HhzeykwtlKldopy (136 - 147 mmol/L) 146Potassium (3.5 - [...] x10E3/uL) 0.02Nucleated RBC % (auto) (0 %) 7Xivikgmlbhrj43/08 2200 BLOOD: Blood Culture - RECD05/18 2199 BLOOD: Blood [facility].Chest x-ray:Impression:Persistent parenchymal disease in the right [...] leuko cytosis.Concern for discitis. Patient transferred to [facility] for MRI thoracic and lumbarspine.-We will [...] obstructive pulmonary disease)A&P2 L home O2 dependent.-Oxygen lecrchgikqidbla30. CKD (chronic kidney disease)A&PHistory of CKD. SU at [facility]. Creatinine today 0.9.-Monitor renal function.11. DiabetesA&PPlaced on insulin sliding scale.-Monitor fingersticks.-Patient had hypoglycemic episodes at [facility] and her Levemir dose wasdecreased to [...] rce(s) Supporting Document(s) ID Date Data Source [id number] 05/18/2020 07:05:00 PM EDT [facility] Summary of HospitalizationReason for Ad missionweakness, [...] avail and made arrangements for transfer to [facility] this morining for MRI and PICC [...] rce(s) Supporting Document(s) ID Date Data Source [id number] 05/18/2020 06:53:00 PM EDT [facility] Discharge Appointments Outpatient Tests *patient discharged [...] rce(s) Supporting Document(s) ID Date Data Source [id number] 05/18/2020 02:46:00 PM EDT [facility] [...] rce(s) Supporting Document(s) ID Date Data Source [id number] 05/18/2020 02:43:00 PM EDT [facility] TSYSORDER [id number] Name Value Range Interpretation Code Description Data Rosa rce(s) Supporting Document(s) ARTERIAL BLOOD GAS pH 7.45 7.35-7.45 [facility] spital ARTERIAL BLOOD GAS PCO2 39.3 mmHg 30-45 [facility] ARTERIAL BLOOD GAS PO2 67 mmHg 75-100 L [facility] ARTERIAL BLOOD GAS HCO3 26.9 meq/L 17-23 H [facility] ARTERIAL BLOOD GAS BASE EXCESS 3.1 -2.0-2.0 H [facility] ARTERIAL BLD GAS O2 SATURATION 94.9 % 90-98 [facility] ARTERIAL BLOOD GAS CTCO2 28.1 mmol/L 23.0-31.0 [facility] ID Date Data Source [id number] 05/18/2020 03:18:00 PM EDT [facility] l TSYSORDER [id number] Name Value Range Interpretation Code Description Data Rosa rce(s) Supporting Document(s) TROPONIN I 0.071 ng/mL 0.000-0.056 *H [facility] ID Date Data Source [id number] 05/18/2020 03:01:00 PM EDT [facility] l TSYSORDER [id number] Name Value Range Interpretation Code Description Data Rosa rce(s) Supporting Document(s) LACTIC ACID 0.6 mmol/L 0.4-2.0 [facility] ID Date Data Source [id number] 05/18/2020 01:43:00 PM EDT [facility] Exam Number: [id number] EXAMINATI N: 05/18/2020 11:55 EDTU/S GUIDE FOR [...] rce(s) Supporting Document(s) ID Date Data Source [id number] 05/18/2020 10:15:00 AM EDT [facility] Name Value Range Interpretation Code Description Data Rosa rce(s) Supporting Document(s) URINE RBC 1-3 /hpf 0-3 [facility] URINE WBC 0-2 /hpf 0-5 H [facility] URINE EPITHELIAL CELLS 2+ /hpf [facility] UR[facility] BACTERIA TRACE NONE SEEN H [facility] URINE MUCUS 1+ NEGATIVE [facility] URINE AMORPHOUS SEDIMENT 3+ [facility] ID Date Data Source [id number] 05/18/2020 10:14:00 AM EDT [facility] ital Name Value Range Interpretation Code Description Data Rosa rce(s) Supporting Document(s) URINE COLOR. YELLOW [facility] URINE APPEARANCE SLIGHTY CLOUDY [facility] URINE GLUCOSE (UA) NEGATIVE mg/dL NEGATIVE [facility] URINE BILIRUBIN NEGATIVE NEGATIVE [facility] URINE KETONE NEGATIVE mg/dL NEGATIVE [facility] SPECIFIC GRAVITY,URINE 1.020 1.005-1.030 [facility] URINE BLOOD NEGATIVE NEGATIVE [facility] PH,URINE 6.5 5.0-9.0 [facility] URINE PROTEIN 4+(>=300) mg/dL NEGATIVE [facility] ital URINE UROBILINOGEN NORMAL(0.2-1) mg/dL 0-1 R [facility] URINE NITRATE NEGATIVE NEGATIVE [facility] URINE LEUKOCYTE ESTERASE NEGATIVE NEGATIVE [facility] ID Date Data Source [id number] 05/18/2020 09:03:00 AM T [facility] l DATE OF EXAMINATION: 05/18/2020 8:18 EDT [...] rce(s) Supporting Document(s) ID Date Data Source [id number] 05/18/2020 09:01:00 AM EDT [facility] [...] in the right upper lobe is likely parts sales representative ofpneumonia and should be followed to complete resolution. IMPRESSION: Tgpn-uw-zgejafht parenchymal disease in the right upper lobe consistent withpneumonia should be followed to complete resolution. Severe calcified coronary arterial plaque formation likely hemodynamicallysignificant. Electronically signed in [id number] by: Tabitha De La Vega M.D. 05/18/2020 8:56 EDT Name Value Range Interpretation Code Description Data Rosa rce(s) Supporting Document(s) ID Date Data Source [id number] 05/18/2020 09:00:00 AM EDT [facility] [...] rce(s) Supporting Document(s) ID Date Data Source [id number] 05/18/2020 07:17:00 AM EDT [facility] Name Value Range Interpretation Code Description Data Rosa rce(s) Supporting Document(s) COVID-19 NEGATIVE [facility] This lab was ordered by [facility] and reported by [facility]. ID Date Data Source [id number] 05/18/2020 07:36:00 AM EDT [facility] Name Value Range Interpretation Code Description Data [facility] rce(s) Supporting Document(s) COVID-19 NEGATIVE NEGATIVE [facility] Negative results should be treated as [...] are for the indentification of SARS-CoV-2 RNA. FtsIXEH-BeL-7 RNA is generally detectable in respiratorysamples during the actue phase of infection. ID Date Data Source [id number] 05/18/2020 07:38:00 AM EDT [facility] Name Value Range Interpretation Code Description Data Rosa rce(s) Supporting Document(s) ERYTHROCYTE SEDIMENTATION RATE 13 mm/hr 0-30 [facility] ID Date Data Source [id number] 05/18/2020 07:03:00 AM EDT [facility] Name Value Range Interpretation Code Description Data Rosa rce(s) Supporting Document(s) C REACTIVE PROTEIN 25.7 mg/L 0.0-3.0 [facility] ID Date Data Source [id number] 05/18/2020 06:46:00 AM EDT [facility] Name Value Range Interpretation Code Description Data Rosa rce(s) Supporting Document(s) GLUCOSE 258 mg/dL 74-106 H [facility] BLOOD UREA NITROGEN 34 mg/dL 7-18 H [facility] CREATININE 1.40 mg/dL 0.6-1.0 H [facility] SODIUM 139 mmol/L 136-145 [facility] POTASSIUM 4.9 mmol/L 3.5-5.1 [facility] CHLORIDE 102 mmol/L 98-107 [facility] CO2 27 mmol/L 21-32 [facility] CALCIUM 9.2 mg/dL 8.5-10.1 [facility] ANION GAP 10.0 mmol/L 5-12 [facility] GLOMERULAR FILTRATION RATE 37 mL/min [facility] GFR IS CALCULATED IN mL/min/1.73m2 STEVENSON L FUNCTION: >90MILDLY DECREASED: 60-89MILDY TO MODERATELY DECREASED: 45-59 MODERATELY TO SEVERELY DECREASED: 30-44SEVERELY DECREASED: 15-29RENAL FAILURE: <15 ID Date Data Source [id number] 05/18/2020 06:36:00 AM EDT [facility] Name Value Range Interpretation Code Description Data Rosa rce(s) Supporting Document(s) WHITE BLOOD COUNT 14.0 K/mm3 4.0-10.0 [facility] RED BLOOD COUNT 3.70 M/mm3 4.00-5.50 L [facility] HEMOGLOBIN 11.3 gm/dL 12.0-16.0 L [facility] HEMATOCRIT 33.4 % 36.0-48.8 L [facility] MEAN CELL VOLUME 90.3 fl 80-96 [facility] l MEAN CORPUSCULAR HEMOGLOBIN 30.5 pg 27.0-31.0 [facility] MEAN CORPUSCULAR HGB CONC 33.8 g/dl 32.0-36.0 [facility] RED CELL DISTRIBUTION WIDTH 15.1 % 10.0-14.5 H [facility] PLATELET COUNT 159 K/mm3 172-450 L [facility] MEAN PLATELET VOLUME 10.1 fl 9.0-13.0 [facility] pital GRAN % 85.2 % 50-80.0 H [facility] IG% 2.1 % 0.0-0.2 H [facility] LYMPH % 6.5 % 25.0-50.0 L [facility] MONO % 5.7 % 2.0-10.0 [facility] EOS % 0.4 % 0-5.0 [facility] BASO % 0.1 % 0.0-2.0 [facility] GRAN # 12.0 K/mm3 2.0-8.00 H [facility] IG# 0.3 K/mm3 0.0-0.2 H [facility] LYMPH # 0.9 K/mm3 1.0-5.0 L [facility] MONO # 0.8 K/mm3 0.10-1.20 [facility] EOS # 0.1 K/mm3 0.0-0.5 [facility] BASO # 0.0 K/mm3 0.0-0.2 [facility] ID Date Data Source [id number] 05/17/2020 10:50:00 PM EDT [facility] Name Value Range Interpretation Code Description Data Rosa rce(s) Supporting Document(s) URINE AMPHETAMINES POSITIVE <1000 ng/mL [facility] COCAINE, URINE NEGATIVE <300 ng/mL [facility] THC,URINE POSITIVE <50 ng/mL H [facility] URINE BENZODIAZEPINES POSITIVE <300 ng/mL [facility] URINE,TCA NEGATIVE <1000 ng/mL [facility] IF A NEGATIVE RESULT IS OBTAINED AND ING ESTION OF TRICYCLICANTIDEPRESSANTS IS SUSPECTED, A SERUM SAMPLE SHOULD BEOBTAINED AND TESTED USING AN APPROPRIATE METHOD. URINE BARBITURATES NEGATIVE <300 ng/mL [facility] MDMA NEGATIVE <500 ng/mL [facility] URINE,OPIATES NEGATIVE <300 ng/mL [facility] PCP,URINE NEGATIVE <25 ng/mL [facility] OXYCODONE URINE POSITIVE <100 ng/mL H [facility] l PROPOXYPHENE NEGATIVE <300 ng/mL [facility] THESE TESTS ARE PERFORMED USING AN IMMU NOASSAY FOR THEQUALITATIVE DETERMINATION OF THE PRESENCE OF THE MAJORMETABOLITES OF DRUGS OF ABUSE. THESE TESTS ARE ONLY ASCREENING AND NOT CONFIRMATORY. CLINICAL CONSIDERATION ANDPROFESSIONAL JUDGMENT MUST BE APPLIED TO ANY DRUG OF ABUSETEST RESULT. ID Date Data Source [id number] 05/20/2020 01:16:00 PM EDT [facility] RARE WBCSRARE SECSSMALL NUMBERS GRAM POS BACILLISMALL NUMBERS GRAM-POSITIVE COCCI IN CHAINSRARE GRAM NEGATIVE BACILLIRARE YEAST LIKE Name Value Range Interpretation Code Description Data Rosa rce(s) Supporting Document(s) ORGANISM [facility] COLONY COUNT N [facility] ID Date Data Source [id number] 05/17/2020 12:07:00 PM EDT [facility] DATE OF EXAMINATION: 05/17/2020 7:50 EDT [...] rce(s) Supporting Document(s) ID Date Data Source [id number] 05/19/2020 02:06:00 PM EDT [facility] Name Value Range Interpretation Code Description Data Rosa rce(s) Supporting Document(s) SPECIMEN SOURCE Urine . [facility] STREPTOCOCCUS PEUMONIAE AG Negative Negative [facility] er Hospital BODY FLUID CULTURE STERILE Not indicated. . [facility] ORGANISM ID Not indicated. . [facility] PLEASE NOTE: Comment . [facility] [employer] standar ds require aculture to be performed on CSF specimens submitted forbacterial antigen testing. (CAP SANDRA.[id number]) Urine specimenswill not be cultured.Performed at: [address] [id number] Director: Ramu Cota MD, Phone: [phone] ID Date Data Source [id number] 05/19/2020 02:05:00 PM EDT [facility] Name Value Range Interpretation Code Description Data Rosa rce(s) Supporting Document(s) Specimen Source Urine [facility] Streptococcus pneumoniae Ag Negative Negative [facility] Body Fluid Culture, Sterile Not indicated. [facility] Organism ID Not indicated. [facility] Please Note: [facility] [employer] standar ds require a culture to beperformed on CSF specimens submitted for bacterial antigen testing.(CAP [id number]) Urine specimens will not be cultured. ID Date Data Source [id number] 05/18/2020 03:26:00 PM EDT [facility] Is the patient hospitalized ([facility] or [facility])? Y Name Value Range Interpretation Code Description Data Rosa rce(s) Supporting Document(s) L PNEUMO SERO 1 NEGATIVE NEGATIVE N [facility] MANUAL ENTRY RECHECKED Screen for [...] (REFERENCE RANGE= NEGATIVE) ID Date Data Source [id number] 05/17/2020 12:37:00 PM EDT [facility] Name Value Range Interpretation Code Description Data Rosa rce(s) Supporting Document(s) LEGIONELLA AG URINE-ANGELES SENT TO [facility] ID Date Data Source [id number] 05/23/2020 08:17:00 AM EDT [facility] Name Value Range Interpretation Code Description Data Rosa rce(s) Supporting Document(s) [facility] ID Date Data Source [id number] 05/23/2020 08:15:00 AM EDT [facility] Name Value Range Interpretation Code Description Data Rosa rce(s) Supporting Document(s) [facility] ID Date Data Source [id number] 05/17/2020 09:02:00 AM [facility] l Name Value Range Interpretation Code Description Data Rosa rce(s) Supporting Document(s) LACTIC ACID 1.4 mmol/L 0.4-2.0 [facility] ID Date Data Source [id number] 05/17/2020 08:39:00 AM [facility] l Name Value Range Interpretation Code Description Data Rosa rce(s) Supporting Document(s) PARTIAL THROMBOPLASTIN TIME 22.5 SECONDS 21.2-27.3 [facility] ID Date Data Source [id number] 05/17/2020 08:39:00 AM [facility] l Name Value Range Interpretation Code Description Data Rosa rce(s) Supporting Document(s) PROTHROMBIN TIME (PATIENT) 9.9 SECONDS 9.1-11.6 [facility] INR 0.95 0.87-1.06 [facility] ID Date Data Source [id number] 05/17/2020 08:07:00 AM [facility] l Name Value Range Interpretation Code Description Data Rosa rce(s) Supporting Document(s) ERYTHROCYTE SEDIMENTATION RATE 14 mm/hr 0-30 [facility] ID Date Data Source [id number] 05/17/2020 07:09:00 AM [facility] l Name Value Range Interpretation Code Description Data Rosa rce(s) Supporting Document(s) WHITE BLOOD COUNT 23.1 K/mm3 4.0-10.0 [facility] jer RED BLOOD COUNT 3.87 M/mm3 4.00-5.50 L [facility] HEMOGLOBIN 11.7 gm/dL 12.0-16.0 L [facility] HEMATOCRIT 34.6 % 36.0-48.8 L [facility] MEAN CELL VOLUME 89.4 fl 80-96 [facility] MEAN CORPUSCULAR HEMOGLOBIN 30.2 pg 27.0-31.0 H [facility] MEAN CORPUSCULAR HGB CONC 33.8 g/dl 32.0-36.0 [facility] RED CELL DISTRIBUTION WIDTH 15.1 % 10.0-14.5 H [facility] PLATELET COUNT 284 K/mm3 172-450 [facility] MEAN PLATELET VOLUME 9.8 fl 9.0-13.0 [facility] pital GRAN % 82.0 % 50-80.0 H [facility] IG% 1.8 % 0.0-0.2 H [facility] LYMPH % 7.4 % 25.0-50.0 L [facility] MONO % 7.8 % 2.0-10.0 [facility] EOS % 0.9 % 0-5.0 [facility] BASO % 0.1 % 0.0-2.0 [facility] GRAN # 19.0 K/mm3 2.0-8.00 *H [facility] IG# 0.4 K/mm3 0.0-0.2 H [facility] LYMPH # 1.7 K/mm3 1.0-5.0 [facility] MONO # 1.8 K/mm3 0.10-1.20 H [facility] EOS # 0.2 K/mm3 0.0-0.5 [facility] BASO # 0.0 K/mm3 0.0-0.2 [facility] ID Date Data Source [id number] 05/17/2020 07:36:00 AM EDT [facility] l Name Value Range Interpretation Code Description Data Rosa rce(s) Supporting Document(s) C REACTIVE PROTEIN 6.5 mg/L 0.0-3.0 [facility] Data Source [id number] 05/17/2020 07:36:00 AM EDT [facility] l Name Value Range Interpretation Code Description Data Rosa rce(s) Supporting Document(s) GLUCOSE 31 mg/dL 74-106 *L [facility] BLOOD UREA NITROGEN 32 mg/dL 7-18 [facility] ital CREATININE 1.25 mg/dL 0.6-1.0 H [facility] SODIUM 140 mmol/L 136-145 [facility] POTASSIUM 4.4 mmol/L 3.5-5.1 [facility] CHLORIDE 102 mmol/L 98-107 [facility] CO2 29 mmol/L 21-32 [facility] CALCIUM 9.3 mg/dL 8.5-10.1 [facility] ANION GAP 9.0 mmol/L 5-12 [facility] GLOMERULAR FILTRATION RATE 42 mL/min [facility] GFR IS CALCULATED IN mL/min/1.73m2 STEVENSON L FUNCTION: >90MILDLY DECREASED: 60-89MILDY TO MODERATELY DECREASED: 45-59 MODERATELY TO SEVERELY DECREASED: 30-44SEVERELY DECREASED: 15-29RENAL FAILURE: <15 AST 47 U/L 15-37 H [facility] ALT 51 U/L 12-78 [facility] ALKALINE PHOSPHATASE 121 U/L 46-116 H [facility] pital TOTAL BILIRUBIN 0.3 mg/dL 0.2-1.0 [facility] TOTAL PROTEIN 5.9 g/dl 6.4-8.2 L [facility] ALBUMIN 3.1 gm/dL 3.4-5.0 L [facility] ID Date Data Source [id number] 05/18/2020 03:25:00 PM EDT [facility] Name Value Range Interpretation Code Description Data Rosa rce(s) Supporting Document(s) MRSA/SAUR SCRN [facility] S.AUREUS SCREEN N [facility] al MRSA SCREEN N [facility] ID Date Data Source [id number] 05/17/2020 12:28:00 AM EDT [facility] l HistoryChief Complaint/Admit ReasonRigh t upper and [...] medications who presented to emergency department of [facility] on 05/10/2020 with generalized malaise, severe weakness, cough and intractable back pain. She was found to have leucocytosis of18.2 and right upper and right lower lobe pneumonia with mediastinal lymphadenopathy. 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 She was found to have leucocytosis of18.2 and right upper and right lower lobe pneumonia with mediastinal lymphadenopathy. 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, normal mood/affect, [...] discussed with , significant otherCase discussed with rn case manager, nursing staffCopies toFamily Provider: VTE ProphylaxisVTE Prophylaxis: [...] rce(s) Supporting Document(s) ID Date Data Source [id number] [facility] Name Value Range Interpretation Code Description Data Rosa rce(s) Supporting Document(s) ERYTHROCYTE SEDIMENTATION RATE 28 mm/hr 0-30 [facility] ID Date Data Source [id number] 05/16/2020 06:49:00 AM [facility] Name Value Range Interpretation Code Description Data [facility] rce(s) Supporting Document(s) WHITE BLOOD COUNT 13.3 K/mm3 4.0-10.0 H [facility] jer RED BLOOD COUNT 3.60 M/mm3 4.00-5.50 L [facility] HEMOGLOBIN 10.9 gm/dL 12.0-16.0 [facility] HEMATOCRIT 32.5 % 36.0-48.8 [facility] MEAN CELL VOLUME 90.3 fl 80-96 [facility] MEAN CORPUSCULAR HEMOGLOBIN 30.3 pg 27.0-31.0 [facility] MEAN CORPUSCULAR HGB CONC 33.5 g/dl 32.0-36.0 [facility] RED CELL DISTRIBUTION WIDTH 14.7 % 10.0-14.5 H [facility] PLATELET COUNT 174 K/mm3 172-450 [facility] MEAN PLATELET VOLUME 10.0 fl 9.0-13.0 [facility] pital GRAN % 93.2 % 50-80.0 H [facility] IG% 1.4 % 0.0-0.2 H [facility] LYMPH % 2.4 % 25.0-50.0 *L [facility] MONO % 3.0 % 2.0-10.0 [facility] EOS % 0.0 % 0-5.0 [facility] BASO % 0.0 % 0.0-2.0 [facility] GRAN # 12.4 K/mm3 2.0-8.00 H [facility] IG# 0.2 K/mm3 0.0-0.2 [facility] LYMPH # 0.3 K/mm3 1.0-5.0 L [facility] MONO # 0.4 K/mm3 0.10-1.20 [facility] EOS # 0.0 K/mm3 0.0-0.5 [facility] BASO # 0.0 K/mm3 0.0-0.2 [facility] ID Date Data Source [id number] 05/16/2020 07:12:00 AM EDT [facility] Name Value Range Interpretation Code Description Data Rosa rce(s) Supporting Document(s) GLUCOSE 323 mg/dL 74-106 H [facility] BLOOD UREA NITROGEN 24 mg/dL 7-18 [facility] ital CREATININE 1.12 mg/dL 0.6-1.0 H [facility] SODIUM 136 mmol/L 136-145 [facility] POTASSIUM 5.3 mmol/L 3.5-5.1 H [facility] CHLORIDE 99 mmol/L 98-107 [facility] CO2 29 mmol/L 21-32 [facility] CALCIUM 9.1 mg/dL 8.5-10.1 [facility] ANION GAP 8.0 mmol/L 5-12 [facility] GLOMERULAR FILTRATION RATE 48 mL/min [facility] GFR IS CALCULATED IN mL/min/1.73m2 STEVENSON L FUNCTION: >90MILDLY DECREASED: 60-89MILDY TO MODERATELY DECREASED: 45-59 MODERATELY TO SEVERELY DECREASED: 30-44SEVERELY DECREASED: 15-29RENAL FAILURE: <15 AST 28 U/L 15-37 [facility] ALT 41 U/L 12-78 [facility] ALKALINE PHOSPHATASE 107 U/L 46-116 [facility] pital TOTAL BILIRUBIN 0.3 mg/dL 0.2-1.0 [facility] TOTAL PROTEIN 5.9 g/dl 6.4-8.2 L [facility] ALBUMIN 2.7 gm/dL 3.4-5.0 L [facility] ID Date Data Source [id number] 05/15/2020 03:58:00 PM EDT [facility] Progress Note GeneralEncounter:Chart re viewed. 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 Ambulatory dysfunction A&PSevere [...] sparrow(s) Supporting Document(s) ID Date Data Source [id number] 05/15/2020 07:25:00 AM EDT [facility] Name Value Range Interpretation Code Description Data [facility] Supporting Document(s) GLUCOSE 138 mg/dL 74-106 H [facility] BLOOD UREA NITROGEN 27 mg/dL 7-18 [facility] ital CREATININE 1.08 mg/dL 0.6-1.0 H [facility] SODIUM 139 mmol/L 136-145 [facility] POTASSIUM 4.6 mmol/L 3.5-5.1 [facility] CHLORIDE 103 mmol/L 98-107 [facility] CO2 26 mmol/L 21-32 [facility] CALCIUM 9.1 mg/dL 8.5-10.1 [facility] ANION GAP 10.0 mmol/L 5-12 [facility] GLOMERULAR FILTRATION RATE 50 mL/min [facility] GFR IS CALCULATED IN mL/min/1.73m2 STEVENSON L FUNCTION: >90MILDLY DECREASED: 60-89MILDY TO MODERATELY DECREASED: 45-59 MODERATELY TO SEVERELY DECREASED: 30-44SEVERELY DECREASED: 15-29RENAL FAILURE: <15 AST 27 U/L 15-37 [facility] ALT 37 U/L 12-78 [facility] ALKALINE PHOSPHATASE 98 U/L 46-116 [facility] TOTAL BILIRUBIN 0.3 mg/dL 0.2-1.0 [facility] TOTAL PROTEIN 5.6 g/dl 6.4-8.2 L [facility] ALBUMIN 2.8 gm/dL 3.4-5.0 L [facility] ID Date Data Source [id number] 05/15/2020 07:06:00 AM EDT [facility] Name Value Range Interpretation Code Description Data Rosa rce(s) Supporting Document(s) WHITE BLOOD COUNT 13.5 K/mm3 4.0-10.0 H [facility] jer RED BLOOD COUNT 3.64 M/mm3 4.00-5.50 L [facility] HEMOGLOBIN 11.1 gm/dL 12.0-16.0 L [facility] HEMATOCRIT 32.7 % 36.0-48.8 L [facility] MEAN CELL VOLUME 89.8 fl 80-96 [facility] l MEAN CORPUSCULAR HEMOGLOBIN 30.5 pg 27.0-31.0 [facility] MEAN CORPUSCULAR HGB CONC 33.9 g/dl 32.0-36.0 [facility] RED CELL DISTRIBUTION WIDTH 14.8 % 10.0-14.5 H [facility] PLATELET COUNT 182 K/mm3 172-450 [facility] MEAN PLATELET VOLUME 10.0 fl 9.0-13.0 [facility] pital GRAN % 93.7 % 50-80.0 [facility] IG% 1.2 % 0.0-0.2 [facility] LYMPH % 2.0 % 25.0-50.0 *L [facility] MONO % 3.0 % 2.0-10.0 [facility] EOS % 0.0 % 0-5.0 [facility] BASO % 0.1 % 0.0-2.0 [facility] GRAN # 12.7 K/mm3 2.0-8.00 H [facility] IG# 0.2 K/mm3 0.0-0.2 [facility] LYMPH # 0.3 K/mm3 1.0-5.0 L [facility] MONO # 0.4 K/mm3 0.10-1.20 [facility] EOS # 0.0 K/mm3 0.0-0.5 [facility] BASO # 0.0 K/mm3 0.0-0.2 [facility] ID Date Data Source [id number] 05/14/2020 01:01:00 PM EDT [facility] DATE OF EXAMINATION: 05/14/2020 11:08 EDT [...] rce(s) Supporting Document(s) ID Date Data Source [id number] 05/14/2020 06:18:00 AM EDT [facility] Name Value Range Interpretation Code Description Data Rosa rce(s) Supporting Document(s) GLUCOSE 229 mg/dL 74-106 H [facility] BLOOD UREA NITROGEN 30 mg/dL 7-18 [facility] ital CREATININE 1.16 mg/dL 0.6-1.0 H [facility] SODIUM 137 mmol/L 136-145 [facility] POTASSIUM 5.5 mmol/L 3.5-5.1 H [facility] CHLORIDE 102 mmol/L 98-107 [facility] CO2 27 mmol/L 21-32 [facility] CALCIUM 8.7 mg/dL 8.5-10.1 [facility] ANION GAP 8.0 mmol/L 5-12 [facility] GLOMERULAR FILTRATION RATE 46 mL/min [facility] GFR IS CALCULATED IN mL/min/1.73m2 STEVENSON L FUNCTION: >90MILDLY DECREASED: 60-89MILDY TO MODERATELY DECREASED: 45-59 MODERATELY TO SEVERELY DECREASED: 30-44SEVERELY DECREASED: 15-29RENAL FAILURE: <15 AST 26 U/L 15-37 [facility] ALT 35 U/L 12-78 [facility] ALKALINE PHOSPHATASE 100 U/L 46-116 [facility] pital TOTAL BILIRUBIN 0.3 mg/dL 0.2-1.0 [facility] TOTAL PROTEIN 5.8 g/dl 6.4-8.2 L [facility] ALBUMIN 2.9 gm/dL 3.4-5.0 L [facility] ID Date Data Source [id number] 05/14/2020 05:53:00 AM EDT [facility] Name Value Range Interpretation Code Description Data Rosa rce(s) Supporting Document(s) WHITE BLOOD COUNT 12.6 K/mm3 4.0-10.0 [facility] RED BLOOD COUNT 3.72 M/mm3 4.00-5.50 L [facility] HEMOGLOBIN 11.3 gm/dL 12.0-16.0 L [facility] HEMATOCRIT 33.2 % 36.0-48.8 L [facility] MEAN CELL VOLUME 89.2 fl 80-96 [facility] l MEAN CORPUSCULAR HEMOGLOBIN 30.4 pg 27.0-31.0 [facility] MEAN CORPUSCULAR HGB CONC 34.0 g/dl 32.0-36.0 [facility] RED CELL DISTRIBUTION WIDTH 14.7 % 10.0-14.5 H [facility] PLATELET COUNT 164 K/mm3 172-450 L [facility] MEAN PLATELET VOLUME 9.4 fl 9.0-13.0 [facility] pital GRAN % 94.0 % 50-80.0 H [facility] IG% 1.1 % 0.0-0.2 H [facility] LYMPH % 2.7 % 25.0-50.0 *L [facility] MONO % 2.1 % 2.0-10.0 [facility] EOS % 0.0 % 0-5.0 [facility] BASO % 0.1 % 0.0-2.0 [facility] GRAN # 11.8 K/mm3 2.0-8.00 H [facility] IG# 0.1 K/mm3 0.0-0.2 [facility] LYMPH # 0.3 K/mm3 1.0-5.0 L [facility] MONO # 0.3 K/mm3 0.10-1.20 [facility] EOS # 0.0 K/mm3 0.0-0.5 [facility] BASO # 0.0 K/mm3 0.0-0.2 [facility] ID Date Data Source [id number] 05/13/2020 04:51:00 PM EDT [facility] l Name Value Range Interpretation Code Description Data Rosa rce(s) Supporting Document(s) C REACTIVE PROTEIN 16.1 mg/L 0.0-3.0 [facility] ADD ON FROM AM LABS05/13/20 1651: CRP previously reported as: mg/L ADD ON FROM [facility] ID Date Data Source [id number] 05/13/2020 06:23:00 AM EDT [facility] l Name Value Range Interpretation Code Description Data Rosa rce(s) Supporting Document(s) GLUCOSE 169 mg/dL 74-106 H [facility] BLOOD UREA NITROGEN 37 mg/dL 7-18 [facility] CREATININE 1.20 mg/dL 0.6-1.0 H [facility] SODIUM 141 mmol/L 136-145 [facility] POTASSIUM 5.7 mmol/L 3.5-5.1 H [facility] CHLORIDE 105 mmol/L 98-107 [facility] CO2 27 mmol/L 21-32 [facility] CALCIUM 8.8 mg/dL 8.5-10.1 [facility] ANION GAP 9.0 mmol/L 5-12 [facility] GLOMERULAR FILTRATION RATE 44 mL/min [facility] GFR IS CALCULATED IN mL/min/1.73m2 STEVENSON L FUNCTION: >90MILDLY DECREASED: 60-89MILDY TO MODERATELY DECREASED: 45-59 MODERATELY TO SEVERELY DECREASED: 30-44SEVERELY DECREASED: 15-29RENAL FAILURE: <15 AST 25 U/L 15-37 [facility] ALT 33 U/L 12-78 [facility] ALKALINE PHOSPHATASE 93 U/L 46-116 [facility] TOTAL BILIRUBIN 0.2 mg/dL 0.2-1.0 [facility] TOTAL PROTEIN 5.5 g/dl 6.4-8.2 L [facility] ALBUMIN 2.6 gm/dL 3.4-5.0 L [facility] ID Date Data Source [id number] 05/13/2020 05:51:00 AM EDT [facility] Name Value Range Interpretation Code Description Data Rosa rce(s) Supporting Document(s) WHITE BLOOD COUNT 11.6 K/mm3 4.0-10.0 H [facility] jer RED BLOOD COUNT 3.56 M/mm3 4.00-5.50 L [facility] HEMOGLOBIN 11.0 gm/dL 12.0-16.0 L [facility] HEMATOCRIT 32.4 % 36.0-48.8 L [facility] MEAN CELL VOLUME 91.0 fl 80-96 [facility] MEAN CORPUSCULAR HEMOGLOBIN 30.9 pg 27.0-31.0 [facility] MEAN CORPUSCULAR HGB CONC 34.0 g/dl 32.0-36.0 [facility] RED CELL DISTRIBUTION WIDTH 14.9 % 10.0-14.5 H [facility] PLATELET COUNT 159 K/mm3 172-450 L [facility] MEAN PLATELET VOLUME 9.8 fl 9.0-13.0 [facility] pital GRAN % 86.4 % 50-80.0 H [facility] IG% 0.8 % 0.0-0.2 H [facility] LYMPH % 6.4 % 25.0-50.0 L [facility] MONO % 6.1 % 2.0-10.0 [facility] EOS % 0.2 % 0-5.0 [facility] BASO % 0.1 % 0.0-2.0 [facility] GRAN # 10.0 K/mm3 2.0-8.00 H [facility] IG# 0.1 K/mm3 0.0-0.2 [facility] LYMPH # 0.7 K/mm3 1.0-5.0 L [facility] MONO # 0.7 K/mm3 0.10-1.20 [facility] EOS # 0.0 K/mm3 0.0-0.5 [facility] BASO # 0.0 K/mm3 0.0-0.2 [facility] ID Date Data Source [id number] 05/12/2020 11:39:00 AM EDT [facility] l Progress Note GeneralEncounter:The neida ent was seen and examined, chart reviewed, discussed with staff, all questions were answered. SubjectiveGeneral Condition:Management Tech as I walked in the room, the patient stated she wanted to go home. She did frequently tell staff this yesterday as well. She believes that if she had help at home she can take care of herself. [facility] did again [facility], [facility] as [...] while on antibiotics to protect GI and COAL TRIMMER floraContinue famotidine for GI prophylaxis.Continue heparin for [...] taper as clinically improves. Continue DuoNeb treatments [id number] as well as albuterol nebulizer treatments as [...] Name Value Range Interpretation Code Description Data [facility](s) Supporting Document(s) ID Date Data Source [id number] 05/12/2020 11:07:00 AM EDT [facility] l Name Value Range Interpretation Code Description Data [facility](s) Supporting Document(s) GLUCOSE 154 mg/dL 74-106 H [facility] BLOOD UREA NITROGEN 33 mg/dL 7-18 [facility] ital CREATININE 1.02 mg/dL 0.6-1.0 H [facility] SODIUM 141 mmol/L 136-145 [facility] POTASSIUM 4.7 mmol/L 3.5-5.1 [facility] CHLORIDE 106 mmol/L 98-107 [facility] CO2 26 mmol/L 21-32 [facility] CALCIUM 8.6 mg/dL 8.5-10.1 [facility] ANION GAP 9.0 mmol/L 5-12 [facility] GLOMERULAR FILTRATION RATE 53 mL/min [facility] GFR IS CALCULATED IN mL/min/1.73m2 STEVENSON L FUNCTION: >90MILDLY DECREASED: 60-89MILDY TO MODERATELY DECREASED: 45-59 MODERATELY TO SEVERELY DECREASED: 30-44SEVERELY DECREASED: 15-29RENAL FAILURE: <15 ID Date Data Source [id number] 05/12/2020 10:32:00 AM EDT [facility] Name Value Range Interpretation Code Description Data Rosa rce(s) Supporting Document(s) WHITE BLOOD COUNT 15.0 K/mm3 4.0-10.0 [facility] RED BLOOD COUNT 3.66 M/mm3 4.00-5.50 L [facility] HEMOGLOBIN 11.0 gm/dL 12.0-16.0 L [facility] HEMATOCRIT 33.1 % 36.0-48.8 L [facility] MEAN CELL VOLUME 90.4 fl 80-96 [facility] MEAN CORPUSCULAR HEMOGLOBIN 30.1 pg 27.0-31.0 [facility] MEAN CORPUSCULAR HGB CONC 33.2 g/dl 32.0-36.0 [facility] RED CELL DISTRIBUTION WIDTH 14.9 % 10.0-14.5 H [facility] PLATELET COUNT 166 K/mm3 172-450 L [facility] MEAN PLATELET VOLUME 9.7 fl 9.0-13.0 [facility] pital GRAN % 93.9 % 50-80.0 H [facility] IG% 0.3 % 0.0-0.2 H [facility] LYMPH % 2.3 % 25.0-50.0 *L [facility] MONO % 3.5 % 2.0-10.0 [facility] EOS % 0.0 % 0-5.0 [facility] BASO % 0.0 % 0.0-2.0 [facility] GRAN # 14.0 K/mm3 2.0-8.00 H [facility] IG# 0.1 K/mm3 0.0-0.2 [facility] LYMPH # 0.3 K/mm3 1.0-5.0 L [facility] MONO # 0.5 K/mm3 0.10-1.20 [facility] EOS # 0.0 K/mm3 0.0-0.5 [facility] BASO # 0.0 K/mm3 0.0-0.2 [facility] ID Date Data Source [id number] 05/11/2020 12:33:00 PM EDT [facility] Progress Note GeneralEncounter:Chart re viewed. 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 Continue nebulizer treatments tpziuk-lfp-chvmzpcn when necessary. Continue O2 and closely monitor [...] rce(s) Supporting Document(s) ID Date Data Source [id number] 05/11/2020 07:07:00 AM EDT [facility] Name Value Range Interpretation Code Description Data Rosa rce(s) Supporting Document(s) TSH 0.951 uIU/mL 0.360-3.740 [facility] ID Date Data Source [id number] 05/11/2020 06:58:00 AM EDT [facility] Name Value Range Interpretation Code Description Data Rosa rce(s) Supporting Document(s) HGBA1C 11.4 % 3.8-5.6 H [facility] Diabetic > or = to 6.5%Prediabetes 5.7-6 .4%Normal <5.7 ESTIMATED AVERAGE GLUCOSE 280.5 mg/dL [facility] ID Date Data Source [id number] 05/11/2020 06:52[facility] Value Range Interpretation Code Description Data Rosa rce(s) Supporting Document(s) GLUCOSE 113 mg/dL 74-106 H [facility] BLOOD UREA NITROGEN 39 mg/dL 7-18 [facility] ital CREATININE 1.34 mg/dL 0.6-1.0 H [facility] SODIUM 140 mmol/L 136-145 [facility] POTASSIUM 4.9 mmol/L 3.5-5.1 [facility] CHLORIDE 103 mmol/L 98-107 [facility] CO2 27 mmol/L 21-32 [facility] CALCIUM 8.3 mg/dL 8.5-10.1 L [facility] ANION GAP 10.0 mmol/L 5-12 [facility] GLOMERULAR FILTRATION RATE 39 mL/min [facility] GFR IS CALCULATED IN mL/min/1.73m2 STEVENSON L FUNCTION: >90MILDLY DECREASED: 60-89MILDY TO MODERATELY DECREASED: 45-59 MODERATELY TO SEVERELY DECREASED: 30-44SEVERELY DECREASED: 15-29RENAL FAILURE: <15 ID Date Data Source [id number] 05/11/2020 06:44:00 AM [facility] Name Value Range Interpretation Code Description Data Rosa rce(s) Supporting Document(s) WHITE BLOOD COUNT 9.3 K/mm3 4.0-10.0 [facility] al RED BLOOD COUNT 3.47 M/mm3 4.00-5.50 L [facility] HEMOGLOBIN 10.6 gm/dL 12.0-16.0 L [facility] HEMATOCRIT 31.0 % 36.0-48.8 L [facility] MEAN CELL VOLUME 89.3 fl 80-96 [facility] MEAN CORPUSCULAR HEMOGLOBIN 30.5 pg 27.0-31.0 [facility] MEAN CORPUSCULAR HGB CONC 34.2 g/dl 32.0-36.0 [facility] RED CELL DISTRIBUTION WIDTH 14.5 % 10.0-14.5 [facility] PLATELET COUNT 162 K/mm3 172-450 L [facility] MEAN PLATELET VOLUME 9.8 fl 9.0-13.0 [facility] pital GRAN % 92.6 % 50-80.0 H [facility] IG% 0.4 % 0.0-0.2 [facility] LYMPH % 3.1 % 25.0-50.0 *L [facility] MONO % 3.8 % 2.0-10.0 [facility] EOS % 0.0 % 0-5.0 [facility] BASO % 0.1 % 0.0-2.0 [facility] GRAN # 8.6 K/mm3 2.0-8.00 H [facility] IG# 0.0 K/mm3 0.0-0.2 [facility] LYMPH # 0.3 K/mm3 1.0-5.0 L [facility] MONO # 0.4 K/mm3 0.10-1.20 [facility] EOS # 0.0 K/mm3 0.0-0.5 [facility] BASO # 0.0 K/mm3 0.0-0.2 [facility] ID Date Data Source [id number] AG 05/14/2020 04:09:00 PM EDT [facility] [place] [facility] Name Value Range Interpretation Code Description Data Rosa rce(s) Supporting Document(s) SPECIMEN SOURCE Urine . [facility] STREPTOCOCCUS PEUMONIAE AG Negative Negative [facility] BODY FLUID CULTURE STERILE Not indicated. . [facility] ORGANISM ID Not indicated. . [facility] PLEASE NOTE: Comment . [facility] [employer] standar ds require aculture to be performed on CSF specimens submitted forbacterial antigen testing. (CAP [id number]) Urine specimenswill not be cultured.Performed at: 76 [place], [place] [id number] Director: Ramu Cota MD, Phone: [phone] ID Date Data Source [id number] 05/14/2020 04:05:00 PM EDT [facility] Name Value Range Interpretation Code Description Data Rosa rce(s) Supporting Document(s) Specimen Source Urine [facility] Streptococcus pneumoniae Ag Negative Negative [facility] Body Fluid Culture, Sterile Not indicated. [facility] Organism ID Not indicated. [facility] Please Note: [facility] [employer] standar ds require a culture to beperformed on CSF specimens submitted for bacterial antigen testing.(CAP [id number]) Urine specimens will not be cultured. ID Date Data Source [id number] 05/10/2020 10:19:00 PM EDT [facility] l Name Value Range Interpretation Code Description Data Rosa rce(s) Supporting Document(s) LEGIONELLA AG URINE-ANGELES SENT TO [facility] ID Date Data Source [id number] 05/10/2020 10:09:00 PM EDT [facility] l Name Value Range Interpretation Code Description Data Rosa rce(s) Supporting Document(s) GLUCOSE 522 mg/dL 74-106 *H [facility] ID Date Data Source [id number] 05/11/2020 04:14:00 PM EDT [facility] jer Is the patient hospitalized ([facility] or [facility])? Y Name Value Range Interpretation Code Description Data Rosa rce(s) Supporting Document(s) L PNEUMO SERO 1 NEGATIVE NEGATIVE N [facility] MANUAL ENTRY RECHECKED Screen for [...] (REFERENCE RANGE= NEGATIVE) ID Date Data Source [id number] 05/10/2020 05:30:00 PM EDT [facility] Name Value Range Interpretation Code Description Data Rosa rce(s) Supporting Document(s) COVID-19 NEGATIVE [facility] This lab was ordered by [facility] and reported by [facility]. ID Date Data Source [id number] 05/10/2020 05:56:00 PM EDT [facility] TSYSORDER [id number] Name Value Range Interpretation Code Description Data Rosa rce(s) Supporting Document(s) COVID-19 NEGATIVE NEGATIVE [facility] Negative results should be treated as [...] are for the indentification of SARS-CoV-2 RNA. [id number] RNA is generally detectable in respiratorysamples during the actue phase of infection. ID Date Data Source [id number] 05/10/2020 04:22:00 PM EDT [facility] TSYSORDER [id number] Name Value Range Interpretation Code Description Data Rosa rce(s) Supporting Document(s) TROPONIN I 0.031 ng/mL 0.000-0.056 [facility] ID Date Data Source [id number] 05/10/2020 02:11:00 PM EDT [facility] DATE OF EXAMINATION: 05/10/2020 13:07 EDT [...] rce(s) Supporting Document(s) ID Date Data Source [id number] 05/10/2020 01:40:00 PM EDT [facility] TSYS[facility] [id number] Name Value Range Interpretation Code Description Data Rosa rce(s) Supporting Document(s) URINE RBC 0-2 /hpf 0-3 [facility] URINE WBC 0-2 /hpf 0-5 H [facility] URINE EPITHELIAL CELLS 1+ /hpf 0 [facility] URINE HYALINE CAST 0-2 /LPF 0 [facility] ID Date Data Source [id number] 05/10/2020 01:32:00 PM EDT [facility] TSYSORDER [id number] Name Value Range Interpretation Code Description Data Rosa rce(s) Supporting Document(s) URINE COLOR. [facility] URINE APPEARANCE CLEAR [facility] GLUCOSE (UA) >=1000 mg/dL NEGATIVE H [facility] URINE BILIRUBIN NEGATIVE NEGATIVE [facility] URINE KETONE NEGATIVE mg/dL NEGATIVE [facility] SPECIFIC GRAVITY,URINE 1.025 1.005-1.030 [facility] URINE BLOOD NEGATIVE NEGATIVE [facility] PH,URINE 5.5 5.0-9.0 [facility] URINE PROTEIN 4+(>=300) mg/dL NEGATIVE [facility] URINE UROBILINOGEN NORMAL(0.2-1) mg/dL 0-1 [facility] URINE NITRATE NEGATIVE NEGATIVE [facility] URINE LEUKOCYTE ESTERASE NEGATIVE NEGATIVE [facility] ID Date Data Source [id number] 05/16/2020 07:10:00 AM EDT [facility] Name Value Range Interpretation Code Description Data Rosa rce(s) Supporting Document(s) [facility] ID Date Data Source [id number] 05/10/2020 01:21:00 PM EDT [facility] [id number] Name Value Range Interpretation Code Description Data Rosa rce(s) Supporting Document(s) LACTIC ACID 0.9 mmol/L 0.4-2.0 [facility] ID Date Data Source [id number] 05/10/2020 12:51:00 PM EDT [facility] TSYSORDER [id number] Name Value Range Interpretation Code Description Data Rosa rce(s) Supporting Document(s) PH 7.35 7.31-7.41 [facility] VENOUS PCO2 53.1 mmHg 41-51 [facility] VENOUS PO2 33 mmHg 35-42 L [facility] VENOUS BLODD O2 SATURATION 55.4 % 68-77 L [facility] VENOUS BLOOD HCO3 28.2 meq/L 24.0-25.0 [facility] VENOUS BASE EXCESS 1.9 -3.0-3.0 [facility] VENOUS BLOOD CO2 29.9 mmol/L 23.0-32.0 [facility] ID Date Data Source [id number] 05/16/2020 07:10:00 AM EDT [facility] Name Value Range Interpretation Code Description Data Rosa rce(s) Supporting Document(s) [facility] ID Date Data Source [id number] 05/10/2020 12:59:00 PM EDT [facility] l TSYSORDER [id number] Name Value Range Interpretation Code Description Data Rosa rce(s) Supporting Document(s) PARTIAL THROMBOPLASTIN TIME 23.6 SECONDS 21.2-27.3 [facility] ID Date Data Source [id number] 05/10/2020 12:54:00 PM EDT [facility] TSYSORDER [id number] Name Value Range Interpretation Code Description Data Rosa rce(s) Supporting Document(s) PROTHROMBIN TIME (PATIENT) 9.8 SECONDS 9.1-11.6 [facility] INR 0.94 0.87-1.06 [facility] ID Date Data Source [id number] 05/10/2020 12:50:00 PM EDT [facility] l TSYSORDER [id number] Name Value Range Interpretation Code Description Data Rosa rce(s) Supporting Document(s) TROPONIN I 0.031 ng/mL 0.000-0.056 [facility] ID Date Data Source [id number] 05/10/2020 12:50:00 PM EDT [facility] [id number] Name Value Range Interpretation Code Description Data Rosa rce(s) Supporting Document(s) MAGNESIUM 2.2 mg/dL 1.8-2.4 [facility] ID Date Data Source [id number] 05/10/2020 12:31:00 PM EDT [facility] TSYSORDER [id number] Name Value Range Interpretation Code Description Data Rosa rce(s) Supporting Document(s) GLUCOSE 313 mg/dL 74-106 H [facility] BLOOD UREA NITROGEN 33 mg/dL 7-18 H [facility] CREATININE 1.31 mg/dL 0.6-1.0 H [facility] SODIUM 131 mmol/L 136-145 L [facility] POTASSIUM 4.6 mmol/L 3.5-5.1 [facility] CHLORIDE 96 mmol/L 98-107 L [facility] CO2 26 mmol/L 21-32 [facility] CALCIUM 9.6 mg/dL 8.5-10.1 [facility] ANION GAP 9.0 mmol/L 5-12 [facility] GLOMERULAR FILTRATION RATE 40 mL/min [facility] GFR IS CALCULATED IN mL/min/1.73m2 STEVENSON L FUNCTION: >90MILDLY DECREASED: 60-89MILDY TO MODERATELY DECREASED: 45-59 MODERATELY TO SEVERELY DECREASED: 30-44SEVERELY DECREASED: 15-29RENAL FAILURE: <15 AST 19 U/L 15-37 [facility] ALT 32 U/L 12-78 [facility] ALKALINE PHOSPHATASE 97 U/L 46-116 [facility] pital TOTAL BILIRUBIN 0.6 mg/dL 0.2-1.0 [facility] TOTAL PROTEIN 7.2 g/dl 6.4-8.2 [facility] ALBUMIN 3.0 gm/dL 3.4-5.0 L [facility] ID Date Data Source [id number] 05/10/2020 11:59:00 AM EDT [facility] l TSYSORDER [id number] Name Value Range Interpretation Code Description Data Rosa rce(s) Supporting Document(s) WHITE BLOOD COUNT 18.2 K/mm3 4.0-10.0 [facility] RED BLOOD COUNT 4.32 M/mm3 4.00-5.50 [facility] l HEMOGLOBIN 13.0 gm/dL 12.0-16.0 [facility] HEMATOCRIT 38.4 % 36.0-48.8 [facility] MEAN CELL VOLUME 88.9 fl 80-96 [facility] MEAN CORPUSCULAR HEMOGLOBIN 30.1 pg 27.0-31.0 [facility] MEAN CORPUSCULAR HGB CONC 33.9 g/dl 32.0-36.0 [facility] RED CELL DISTRIBUTION WIDTH 14.8 % 10.0-14.5 H [facility] PLATELET COUNT 182 K/mm3 172-450 [facility] MEAN PLATELET VOLUME 9.6 fl 9.0-13.0 [facility] pital GRAN % 91.7 % 50-80.0 H [facility] IG% 0.3 % 0.0-0.2 H [facility] LYMPH % 2.5 % 25.0-50.0 *L [facility] MONO % 4.3 % 2.0-10.0 [facility] EOS % 1.0 % 0-5.0 [facility] BASO % 0.2 % 0.0-2.0 [facility] GRAN # 16.7 K/mm3 2.0-8.00 *H [facility] IG# 0.1 K/mm3 0.0-0.2 [facility] LYMPH # 0.5 K/mm3 1.0-5.0 L [facility] MONO # 0.8 K/mm3 0.10-1.20 [facility] EOS # 0.2 K/mm3 0.0-0.5 [facility] BASO # 0.0 K/mm3 0.0-0.2 [facility] ID Date Data Source [id number] 02/19/2020 09:38:00 PM EST [facility] Name Value Range Interpretation Code Description Data Rosa rce(s) Supporting Document(s) SARS-CoV-2 (COVID 19) NEGATIVE - SARS-CoV-2 (COVID19) [facility] This lab was ordered by [facility] a nd reported by [facility]. ID Date Data Source [id number] 01/04/2020 02:54:00 PM EST [facility] ([facility], ) Name Value Range Interpretation Code Description Data Rosa rce(s) Supporting Document(s) Gram Stain Laboratory test result Normal (applies to non-n umeric results) [facility] ([facility]) QUALITY: GOOD MODERATE EPITHELIAL CELLS MODERATE WBCS MANY GRAM POSITIVE COCCI IN PAIRS, CHAINS AND CLUSTERS MODERATE GRAM POSITIVE RODS MODERATE GRAM NEGATIVE RODS Sputum Culture Laboratory test result Normal (applies to non-numeric results) [facility] ([facility]) FULL REPORT IN LAB NOTES ([facility] NORMAL KELLI PRESENT ORGANISM 1: YEAST LIKE ORGANISM QUANTITY OF GROWTH FEW ORGANISM 1: YEAST LIKE ORGANISM ID Date Data Source [id number] 01/03/2020 03:12:00 PM EST [facility] ([facility] Name Value Range Interpretation Code Description Data [facility] Supporting Document(s) White Blood Count 16.2 10 4.0-10.0 [facility] ([facility] Hemoglobin 14.8 g/dL 12.0-15.5 [facility] ([facility] Red Blood Count 4.85 [...] % 0.0-3.0 [facility] ([facility] [place] % 3.0 % 0.0-5.0 [facility] ([facility] Baso % 0.6 % 0.0-1.0 [facility] ([facility] Immature Granulocyte % 0.5 % 0-3.0 [facility] ([facility] Neutrophils # 14.6 10 1.5-8.5 [facility] ([facility] Nucleated Red Blood Cell % 0.0 % 0-0 MED ENT ([facility] [place] # 0.5 10 0.0-0.8 [facility] ([facility] Lymph # 0.9 10 1.5-5.0 [facility] ([facility] Eos # 0.1 10 0.0-0.5 [facility] ([facility] Baso # 0.1 10 0.0-0.2 [facility] ([facility] ID Date Data Source [id number] 01/03/2020 03:12:00 PM EST [facility] ([facility] [...] Little GFR Left</content>
<content>ESRD GFR <15 on OPERATIONS SUPPORT SPECIALIST</content>
<content></content> Carbon Dioxide Level 25 meq/L 21-32 [...] [facility] ID Date Data Source [id number] 01/03/2020 03:12:00 PM EST [facility] ([facility] Name Value Range Interpretation Code Description Data Rosa rce(s) Supporting Document(s) Thyrotropin [Units/volume] in Serum or Plasma 1.340 uIU/ML 0.358-3.74 0 [facility] ([facility] Thyroxine (T4) free [Mass/volume] in Serum or Plasma 1.58 ng/dL 0.76- 1.46 [facility] ([facility] ID Date Data Source [id number] 01/03/2020 03:12:00 PM EST [facility] ([facility] Name Value Range Interpretation Code Description Data Rosa rce(s) Supporting Document(s) Hemoglobin A1c 8.7 % [facility] ([facility] <content>REFERENCE RANGES:</content><br/ ><content></content>
<content><=5.6% NORMAL</content>
<content>5.7-6.4% SUGGESTS IMPAIRED GLUCOSE METABOLISM/PREDIABETIC</content>
<content>>= 6.5% ABNORMAL</content>
<content></content> Estimated Average Glucose 203 mg/dL 60-110 [facility] ([facility] ID Date Data Source [id number] 11/09/2019 03:24:00 PM EDT [facility] ([facility]) Name Value Range Interpretation Code Description Data Rosa rce(s) Supporting Document(s) Glucose, Fasting 124 mg/dL 70-100 Above high normal M [facility] ([facility]) Creatinine For GFR 1.04 mg/dL 0.55-1.30 Normal (applies to non -numeric results) [facility] ([facility]) Blood Urea Nitrogen 19 mg/dL 7-18 Above high normal [facility] ([facility]) Potassium Serum 5.4 meq/L 3.5-5.1 Above high normal [facility] ([facility]) Sodium Level 138 meq/L 136-145 Normal (applies to non-numeric res ults) [facility] ([facility]) Glomerular Filtration Rate 55.1 Normal (applies to n on-numeric results) [facility]) <content>Units are mL/min/1.73 m2</content>
<content></content>
<content>Chronic Kidney Disease Staging per NKF:</content>
<content></content>
<content>Stage I & II GFR >=60 Normal to Mildly Decreased</content>
<content>Stage III GFR 30- 59 Moderately Decreased</content>
<content>Stage IV GFR 15-29 Severely Decreased</content>
<content>Stage V GFR <15 Very Little GFR Left</content>
<content>ESRD GFR <15 on OPERATIONS SUPPORT SPECIALIST</content>
<content></content> Chloride Level 107 meq/L 98-107 Normal (applies to non-numeric r esults) [facility] ([facility]) Anion Gap 7 meq/L 8-16 Below low normal [facility]) Carbon Dioxide Level 24 meq/L 21-32 Normal (applies to non-num jd results) [facility] ([facility]) Calcium Level 9.8 mg/dL 8.8-10.2 Normal (applies to non-numeric re sults) [facility] ([facility]) ID Date Data Source [id number] 11/09/2019 03:24:00 PM EDT [facility] Name Value Range Interpretation Code Description Data Rosa rce(s) Supporting Document(s) White Blood Count 13.6 10 4.0-10.0 Above high normal [facility] ([facility]) Hematocrit 44.8 % 36.0-47.0 Normal (applies to non-numeric resul ts) [facility]) Red Blood Count 4.83 10 4.00-5.40 Normal (applies to non-numeric results) [facility] ([facility]) Hemoglobin 14.4 g/dL 12.0-15.5 Normal (applies to non-numeric resul ts) [facility]) Mean Corpuscular Hemoglobin 29.8 pg 27.0-33.0 Norm al (applies to non-numeric results) [facility] ([facility]) Mean Corpuscular HGB Conc 32.1 g/dL 32.0-36.5 Normal (applies to non-numeric results) [facility] ([facility]) Mean Corpuscular Volume 92.8 fl 80.0-96.0 Normal ( applies to non-numeric results) [facility] ([facility]) Red Cell Distribution Width 15.0 % 11.5-14.5 Above high normal [facility] ([facility]) Nucleated Red Blood Cell % 0.0 % 0-0 Normal (applies to n on-numeric results) [facility] ([facility]) Platelet Count, Automated 214 10 150-450 Normal (applies to non-numeric results) [facility]) Procedure Social History Code Duration Value Status Description Data Source(s ) Smoking 11/24/2020 12:00:00 AM EDT Current Smoker completed Curre nt Smoker eCW1 ([facility]) Smoking 11/24/2020 12:00:00 AM EDT Current Smoker completed Curre nt Smoker eCW1 ([facility]) Smoking 08/18/2020 12:00:00 AM EDT Current Smoker completed Curre nt Smoker eCW1 ([facility]) Smoking 08/18/2020 12:00:00 AM EDT Current Smoker completed Curre nt Smoker eCW1 ([facility]) Smoking 08/18/2020 12:00:00 AM EDT Current Smoker completed Curre nt Smoker eCW1 ([facility]) Smoking 06/30/2020 12:00:00 AM EDT Current Smoker completed Curre nt Smoker eCW1 ([facility]) Smoking 06/30/2020 12:00:00 AM EDT Current Smoker completed Curre nt Smoker eCW1 ([facility]) Smoking 06/30/2020 12:00:00 AM EDT Current Smoker completed Curre nt Smoker eCW1 ([facility]) Smoking 06/30/2020 12:00:00 AM EDT Current Smoker completed Curre nt Smoker eCW1 ([facility]) Smoking 06/30/2020 12:00:00 AM EDT Current Smoker completed Curre nt Smoker eCW1 ([facility]) Smoking 06/30/2020 12:00:00 AM EDT Current Smoker completed Curre nt Smoker eCW1 ([facility]) Smoking 06/30/2020 12:00:00 AM EDT Current Smoker completed Curre nt Smoker eCW1 ([facility]) Smoking 06/30/2020 12:00:00 AM EDT Current Smoker completed Curre nt Smoker eCW1 ([facility]) Smoking 06/30/2020 12:00:00 AM EDT Current Smoker completed Curre nt Smoker eCW1 ([facility]) Smoking 06/30/2020 12:00:00 AM EDT Current Smoker completed Curre nt Smoker eCW1 ([facility]) Smoking 06/30/2020 12:00:00 AM EDT Current Smoker completed Curre nt Smoker eCW1 ([facility]) Smoking 06/30/2020 12:00:00 AM EDT Current Smoker completed Curre nt Smoker eCW1 ([facility]) Smoking 06/30/2020 12:00:00 AM EDT Current Smoker completed Curre nt Smoker eCW1 ([facility]) Smoking 06/30/2020 12:00:00 AM EDT Current Smoker completed Curre nt Smoker eCW1 ([facility]) Smoking 06/30/2020 12:00:00 AM EDT Current Smoker completed Curre nt Smoker eCW1 ([facility]) Smoking 06/25/2020 12:00:00 AM EDT Current Smoker completed Curre nt Smoker eCW1 ([facility]) Vital Signs ID Date Data Source UNK Name Value Range Interpretation Code Description Data Source(s) Diastolic blood pressure 60 mm[Hg] 60 mm[Hg] eCW1 ([facility]) Body weight 113 [lb_av] 113 [lb_av] eCW1 ([facility]) Body height [in_i] eCW1 ([facility]) Body mass index (BMI) [Ratio] 20.01 kg/m2 20.01 kg/m2 eCW1 ([facility]) Heart rate 96 /min 96 /min eCW1 ([facility]) Respiratory rate 18 /min 18 /min eCW1 ([facility]) Body temperature 97.2 [degF] 97.2 [degF] eCW1 ( [facility]) Systolic blood pressure 128 mm[Hg] 128 mm[Hg] e CW1 ([facility]) Systolic blood pressure 130 mm[Hg] 130 mm[Hg] M EDENT ([facility], ) Diastolic blood pressure 80 mm[Hg] 80 mm[Hg] [facility] ([facility], ) Heart rate 102 /min 102 /min [facility] ([facility], ) Oxygen saturation in Arterial blood by Pulse oximetry 94 % 94 % [facility] ([facility], ) Body height 61.75 [in_i] 61.75 [in_i] [facility] 5'1.75" Body weight 116.00 [lb_av] 116.00 [lb_av] MEDEN T ([facility], ) Body mass index (BMI) [Ratio] 21.4 kg/m2 21.4 k g/m2 [facility] ([facility]) [place] body weight 105 [lb_av] 105 [lb_av] MEDEN T ([facility]) Body weight 52.618 kg 52.618 kg [facility] ([facility]) Body surface area Derived from formula 1.51 m2 1.51 m2 [facility] ([facility]) Body mass index (BMI) [Ratio] 20.7 kg/m2 20.7 k g/m2 [facility] ([facility] Systolic blood pressure 157 mm[Hg] 157 mm[Hg] M EDENT ([facility] Diastolic blood pressure 69 mm[Hg] 69 mm[Hg] [facility] ([facility] Systolic blood pressure 137 mm[Hg] 137 mm[Hg] [facility] Diastolic blood pressure [...] 98 % [facility] ([facility] [place] body weight 115 [lb_av] 115 [lb_av] MEDEN [...] [lb_av] MEDEN T ([facility] [place] body weight 115 [lb_av] 115 [lb_av] MEDEN T ([facility] Oxygen saturation in Arterial blood by Pulse oximetry 95 % 95 % [facility] ([facility] Body mass index (BMI) [Ratio] 21.3 kg/m2 21.3 k g/m2 [facility] ([facility] Systolic blood pressure 110 mm[Hg] 110 mm[Hg] [facility] ([facility], ) Diastolic blood pressure 58 mm[Hg] 58 mm[Hg] [facility] ([facility], ) Heart rate 90 /min 90 /min [facility] ([facility], ) Oxygen saturation in Arterial blood by Pulse oximetry 91 % 91 % [facility] ([facility], ) Body temperature 97.5 [degF] 97.5 [degF] [facility] ([facility]) Body height 61.75 [in_i] 61.75 [in_i] [facility] ([facility]) 5'1.75" Body weight 122.00 [lb_av] 122.00 [lb_av] MEDEN T ([facility]) Body mass index (BMI) [Ratio] 22.5 kg/m2 22.5 k g/m2 [facility] ([facility]) [place] body weight 105 [lb_av] 105 [lb_av] MEDEN T ([facility]) Body weight 55.339 kg 55.339 kg [facility] ([facility]) Body surface area Derived from formula 1.54 m2 1.54 m2 [facility] ([facility]) Systolic blood pressure 120 mm[Hg] 120 mm[Hg] [facility]) Diastolic blood pressure 60 mm[Hg] 60 mm[Hg] [facility] ([facility]) Body height 61.75 [in_i] 61.75 [in_i] [facility] ([facility]) 5'1.75" Body weight 121.38 [lb_av] 121.38 [lb_av] MEDEN T ([facility]) Body mass index (BMI) [Ratio] 22.4 kg/m2 22.4 k g/m2 [facility] ([facility]) [place] body weight 105 [lb_av] 105 [lb_av] MED[facility] T ([facility]) Body weight 55.056 kg 55.056 kg [facility] ([facility]) Systolic blood pressure 160 mm[Hg] 160 mm[Hg] M EDENT ([facility]) Diastolic blood pressure 70 mm[Hg] 70 mm[Hg] [facility] ([facility]) Body height 61.75 [in_i] 61.75 [in_i] [facility] ([facility]) 5'1.75" Body weight 118.12 [lb_av] 118.12 [lb_av] MEDEN T ([facility]) Body mass index (BMI) [Ratio] 21.8 kg/m2 21.8 k g/m2 [facility] ([facility]) [place] body weight 105 [lb_av] 105 [lb_av] MEDEN T ([facility]) Body weight 53.581 kg 53.581 kg [facility] ([facility]) Systolic blood pressure 140 mm[Hg] 140 [...] 98 % [facility] ([facility] [place] body weight 115 [lb_av] 115 [lb_av] MED[facility] T ([facility] Body mass index (BMI) [Ratio] 20.3 kg/m2 20.3 k g/m2 [facility] ([facility] ID Date Data Source [id number] 06/15/2020 02:16:00 PM EDT [facility] Name Value Range Interpretation Code Description Data Source(s) WEIGHT 54 kilos 54 kilos [facility] HEIGHT 170.18 centimeters 170.18 centimeter s [facility] WEIGHT 54.1 kilos 54.1 kilos [facility] HEIGHT 170.18 centimeters 170.18 centimeter [facility] WEIGHT 54.09 kilos 54.09 kilos [facility] HEIGHT 170.18 centimeters 170.18 centimeter [facility] ID Date Data Source [id number] 05/18/2020 04:36:50 PM [facility] Name Value Range Interpretation Code Description Data Source(s) TRANSFER FROM [facility] ID Date Data Source [id number] 05/24/2020 12:50:00 PM EDT [facility] Name Value Range Interpretation Code Description Data Source(s) WEIGHT 55.9 kilos 55.9 [facility] HEIGHT 160.02 centimeters 160.02 centimeter [facility] WEIGHT 55.8 kilos 55.8 [facility] HEIGHT 160.02 centimeters 160.02 centimeter [facility] ID Date Data Source [id number] 09/21/2020 07:47:00 AM EDT [facility] Name Value Range Interpretation Code Description Data Source(s) WEIGHT 56 kilos 56 [facility] HEIGHT 160.02 centimeters 160.02 centimeter [facility] WEIGHT 55.8 kilos 55.8 [facility] HEIGHT 160.02 centimeters 160.02 centimeter [facility] WEIGHT 51 kilos 51 [facility] HEIGHT 160.02 centimeters 160.02 centimeter [facility] WEIGHT 51.3 kilos 51.3 [facility] HEIGHT 152.4 centimeters 152.4 centimeters [facility] ID Date Data Source [id number] 05/16/2020 08:13:00 PM [facility] Value Range Interpretation Code Description Data Source(s) WEIGHT 52 kilos 52 [facility] ID Date Data Source [id number] 05/16/2020 08:13:00 PM EDT [facility] Name Value Range Interpretation Code Description Data Source(s) WEIGHT [id number] [facility].204004 [facility] HEIGHT 160.02 centimeters 160.02 centimeter [facility] ID Date Data Source [id number] 05/16/2020 08:13:00 PM EDT [facility] Name Value Range Interpretation Code Description Data Source(s) WEIGHT 54 kilos 54 [facility] HEIGHT 160.02 centimeters 160.02 centimeter [facility] Patient Treatment Plan of Care Planned Activity Planned Date Details Description Data Source (s) Nicotine 7 MG/24HR 07/28/2020 12:00:00 AM EDT eCW1 ([facility]) Nicotine 7 MG/24HR 07/28/2020 12:00:00 AM EDT eCW1 ([facility]) Nicotine 7 MG/24HR 07/28/2020 12:00:00 AM EDT eCW1 ([facility]) Nicotine 7 MG/24HR 07/28/2020 12:00:00 AM EDT eCW1 ([facility]) Nicotine 7 MG/24HR 07/28/2020 12:00:00 AM EDT eCW1 ([facility]) Optifoam 4"X4" 07/18/2020 12:00:00 AM EDT eCW1 ([facility]) Optifoam 4"X4" 07/18/2020 12:00:00 AM EDT eCW1 ([facility]) Optifoam 4"X4" 07/18/2020 12:00:00 AM EDT eCW1 ([facility]) Optifoam 4"X4" 07/18/2020 12:00:00 AM EDT eCW1 ([facility]) Optifoam 4"X4" 07/18/2020 12:00:00 AM EDT eCW1 ([facility]) Optifoam 4"X4" 07/18/2020 12:00:00 AM EDT eCW1 ([facility]) Optifoam 4"X4" 07/18/2020 12:00:00 AM EDT eCW1 ([facility]) Acetaminophen 325 MG / Hydrocodone Bitartrate 5 MG Ora l Tablet 06/23/2020 12:00:00 AM EDT eCW1 [facility] gabapentin 100 MG Oral Capsule 06/23/2020 12:00:00 AM EDT eCW1 ([facility]) Metformin hydrochloride 500 MG Oral Tablet 06/23/2020 12:00:00 AM E DT eCW1 ([facility]) HM Lidocaine Patch 4 % 06/23/2020 12:00:00 AM EDT eCW1 ([facility]) Alendronic acid 70 MG Oral Tablet 06/23/2020 12:00:00 AM EDT eCW1 ([facility]) Acetaminophen 325 MG / Hydrocodone Bitartrate 5 MG Ora l Tablet 06/23/2020 12:00:00 AM EDT eCW1 ([facility]) gabapentin 100 MG Oral Capsule 06/23/2020 12:00:00 AM EDT eCW1 ([facility]) Metformin hydrochloride 500 MG Oral Tablet 06/23/2020 12:00:00 AM E DT eCW1 ([facility]) HM Lidocaine Patch 4 % 06/23/2020 12:00:00 AM EDT eCW1 ([facility]) Alendronic acid 70 MG Oral Tablet 06/23/2020 12:00:00 AM EDT eCW1 ([facility]) Acetaminophen 325 MG / Hydrocodone Bitartrate 5 MG Ora l Tablet 06/23/2020 12:00:00 AM EDT eCW1 ([facility]) gabapentin 100 MG Oral Capsule 06/23/2020 12:00:00 AM EDT eCW1 ([facility]) Metformin hydrochloride 500 MG Oral Tablet 06/23/2020 12:00:00 AM E DT eCW1 ([facility]) HM Lidocaine Patch 4 % 06/23/2020 12:00:00 AM EDT eCW1 ([facility]) Alendronic acid 70 MG Oral Tablet 06/23/2020 12:00:00 AM EDT eCW1 ([facility]) Acetaminophen 325 MG / Hydrocodone Bitartrate 5 MG Ora l Tablet 06/23/2020 12:00:00 AM EDT eCW1 ([facility]) gabapentin 100 MG Oral Capsule 06/23/2020 12:00:00 AM EDT eCW1 ([facility]) Metformin hydrochloride 500 MG Oral Tablet 06/23/2020 12:00:00 AM E DT eCW1 ([facility]) HM Lidocaine Patch 4 % 06/23/2020 12:00:00 AM EDT eCW1 ([facility]) Alendronic acid 70 MG Oral Tablet 06/23/2020 12:00:00 AM EDT eCW1 ([facility]) Metformin hydrochloride 500 MG Oral Tablet 06/23/2020 12:00:00 AM E DT eCW1 ([facility]) Acetaminophen 325 MG / Hydrocodone Bitartrate 5 MG Ora l Tablet 06/23/2020 12:00:00 AM EDT eCW1 ([facility]) gabapentin 100 MG Oral Capsule 06/23/2020 12:00:00 AM EDT eCW1 ([facility]) HM Lidocaine Patch 4 % 06/23/2020 12:00:00 AM EDT eCW1 ([facility]) Alendronic acid 70 MG Oral Tablet 06/23/2020 12:00:00 AM EDT eCW1 ([facility]) Metformin hydrochloride 500 MG Oral Tablet 06/23/2020 12:00:00 AM E DT eCW1 ([facility]) Acetaminophen 325 MG / Hydrocodone Bitartrate 5 MG Ora l Tablet 06/23/2020 12:00:00 AM EDT eCW1 ([facility]) gabapentin 100 MG Oral Capsule 06/23/2020 12:00:00 AM EDT eCW1 ([facility]) HM Lidocaine Patch 4 % 06/23/2020 12:00:00 AM EDT eCW1 ([facility]) Alendronic acid 70 MG Oral Tablet 06/23/2020 12:00:00 AM EDT eCW1 ([facility]) Metformin hydrochloride 500 MG Oral Tablet 06/23/2020 12:00:00 AM E DT eCW1 ([facility]) Acetaminophen 325 MG / Hydrocodone Bitartrate 5 MG Ora l Tablet 06/23/2020 12:00:00 AM EDT eCW1 ([facility]) gabapentin 100 MG Oral Capsule 06/23/2020 12:00:00 AM EDT eCW1 ([facility]) HM Lidocaine Patch 4 % 06/23/2020 12:00:00 AM EDT eCW1 ([facility]) Acetaminophen 325 MG / Hydrocodone Bitartrate 5 MG Ora l Tablet 06/23/2020 12:00:00 AM EDT eCW1 ([facility]) gabapentin 100 MG Oral Capsule 06/23/2020 12:00:00 AM EDT eCW1 ([facility]) Metformin hydrochloride 500 MG Oral Tablet 06/23/2020 12:00:00 AM E DT eCW1 ([facility]) HM Lidocaine Patch 4 % 06/23/2020 12:00:00 AM EDT eCW1 ([facility]) Alendronic acid 70 MG Oral Tablet 06/23/2020 12:00:00 AM EDT eCW1 ([facility]) Alendronic acid 70 MG Oral Tablet 06/23/2020 12:00:00 AM EDT eCW1 ([facility]) Metformin hydrochloride 500 MG Oral Tablet 06/23/2020 12:00:00 AM E DT eCW1 ([facility]) Acetaminophen 325 MG / Hydrocodone Bitartrate 5 MG Ora l Tablet 06/23/2020 12:00:00 AM EDT eCW1 ([facility]) gabapentin 100 MG Oral Capsule 06/23/2020 12:00:00 AM EDT eCW1 ([facility]) HM Lidocaine Patch 4 % 06/23/2020 12:00:00 AM EDT eCW1 ([facility]) Alendronic acid 70 MG Oral Tablet 06/23/2020 12:00:00 AM EDT eCW1 ([facility]) Alendronic acid 70 MG Oral Tablet 06/23/2020 12:00:00 AM EDT eCW1 ([facility]) Metformin hydrochloride 500 MG Oral Tablet 06/23/2020 12:00:00 AM E DT eCW1 ([facility]) Acetaminophen 325 MG / Hydrocodone Bitartrate 5 MG Ora l Tablet 06/23/2020 12:00:00 AM EDT eCW1 ([facility]) gabapentin 100 MG Oral Capsule 06/23/2020 12:00:00 AM EDT eCW1 ([facility]) HM Lidocaine Patch 4 % 06/23/2020 12:00:00 AM EDT eCW1 ([facility]) Alendronic acid 70 MG Oral Tablet 06/23/2020 12:00:00 AM EDT eCW1 ([facility]) Metformin hydrochloride 500 MG Oral Tablet 06/23/2020 12:00:00 AM E DT eCW1 ([facility]) Acetaminophen 325 MG / Hydrocodone Bitartrate 5 MG Ora l Tablet 06/23/2020 12:00:00 AM EDT eCW1 ([facility]) gabapentin 100 MG Oral Capsule 06/23/2020 12:00:00 AM EDT eCW1 ([facility]) HM Lidocaine Patch 4 % 06/23/2020 12:00:00 AM EDT eCW1 ([facility]) Alendronic acid 70 MG Oral Tablet 06/23/2020 12:00:00 AM EDT eCW1 ([facility]) Acetaminophen 325 MG / Hydrocodone Bitartrate 5 MG Ora l Tablet 06/23/2020 12:00:00 AM EDT eCW1 ([facility]) HM Lidocaine Patch 4 % 06/23/2020 12:00:00 AM EDT eCW1 ([facility]) gabapentin 100 MG Oral Capsule 06/23/2020 12:00:00 AM EDT eCW1 ([facility]) Metformin hydrochloride 500 MG Oral Tablet 06/23/2020 12:00:00 AM E DT eCW1 ([facility]) Alendronic acid 70 MG Oral Tablet 06/23/2020 12:00:00 AM EDT eCW1 ([facility]) Metformin hydrochloride 500 MG Oral Tablet 06/23/2020 12:00:00 AM E DT eCW1 ([facility]) Acetaminophen 325 MG / Hydrocodone Bitartrate 5 MG Ora l Tablet 06/23/2020 12:00:00 AM EDT eCW1 ([facility]) gabapentin 100 MG Oral Capsule 06/23/2020 12:00:00 AM EDT eCW1 ([facility]) HM Lidocaine Patch 4 % 06/23/2020 12:00:00 AM EDT eCW1 ([facility]) Alendronic acid 70 MG Oral Tablet 06/23/2020 12:00:00 AM EDT eCW1 ([facility]) Metformin hydrochloride 500 MG Oral Tablet 06/23/2020 12:00:00 AM E DT eCW1 ([facility]) Acetaminophen 325 MG / Hydrocodone Bitartrate 5 MG Ora l Tablet 06/23/2020 12:00:00 AM EDT eCW1 ([facility]) gabapentin 100 MG Oral Capsule 06/23/2020 12:00:00 AM EDT eCW1 ([facility]) HM Lidocaine Patch 4 % 06/23/2020 12:00:00 AM EDT eCW1 ([facility]) Alendronic acid 70 MG Oral Tablet 06/23/2020 12:00:00 AM EDT eCW1 ([facility]) Metformin hydrochloride 500 MG Oral Tablet 06/23/2020 12:00:00 AM E DT eCW1 ([facility]) Acetaminophen 325 MG / Hydrocodone Bitartrate 5 MG Ora l Tablet 06/23/2020 12:00:00 AM EDT eCW1 ([facility]) gabapentin 100 MG Oral Capsule 06/23/2020 12:00:00 AM EDT eCW1 ([facility]) HM Lidocaine Patch 4 % 06/23/2020 12:00:00 AM EDT eCW1 ([facility]) Alendronic acid 70 MG Oral Tablet 06/23/2020 12:00:00 AM EDT eCW1 ([facility]) Metformin hydrochloride 500 MG Oral Tablet 06/23/2020 12:00:00 AM E DT eCW1 ([facility]) Acetaminophen 325 MG / Hydrocodone Bitartrate 5 MG Ora l Tablet 06/23/2020 12:00:00 AM EDT eCW1 ([facility]) gabapentin 100 MG Oral Capsule 06/23/2020 12:00:00 AM EDT eCW1 ([facility]) HM Lidocaine Patch 4 % 06/23/2020 12:00:00 AM EDT eCW1 ([facility])
[2020-12-03 06:10] LABS: CK-MB VALUE MASS 4.2 NG/ML (<3.6); CPK CREATINE PHOSPHOKINASE 59 U/L (26-192); MB/CK RELATIVE INDEX 7.12 (< OR =4)
[2020-12-03] MEDS ORDERED: NS 500 ML IV ONE (06:20)
--- NOTE | 2020-12-03 07:54 | ECGEPIP ---
[facility] - ED Test Date: 2020-12-03 Pat Name: ELA LIVINGSTON Department: Room: - Gender: Female Date Night Sitter: NOLA : 1945 Requested By: SAMEERA Gonzalez Order Number: [id number] Reading MD: Tika Ortega Measurements Intervals Mcloud Rate: 92 P: 71 UT: 128 QRS: 18 QRSD: 108 T: 117 QT: 374 QTc: 462 Interpretive Statements Normal sinus rhythm Left ventricular hypertrophy with repolarization abnormality ( Armando product ) Cannot rule out Septal infarct , age undetermined ivcd NSTTW abnormalities similar 11/30/20 Electronically Signed on 12-03-2020 7:54:33 EDT by Tika Ortega
[2020-12-03] MEDS ORDERED: cefTRIAXone SOD 1 GM in D5W MINI-BAG PLUS 50 ML IV ONE (10:25)
[2020-12-03] MEDS ORDERED: methylPREDNISolone 125MG 2ML VIAL IV ONE (10:40)
[2020-12-03] MEDS ORDERED: AZITHROMYCIN INJ 500 MG, VIAL MATE ADAPTER 1 EACH in NS 250 ML IV ONE (11:00)
[2020-12-03] MEDS ORDERED: ACETAMINOPHEN TAB 650MG DOSE (2X325MG) PO PRN (11:05)
[2020-12-03] MEDS ORDERED: ALBUTEROL SULFATE 2.5 MG/0.5 ML INH NEB SOLN NEB PRN (11:05)
[2020-12-03] MEDS ORDERED: GLUCOSE 4GM CHEW TABLET PO PRN (11:05)
[2020-12-03] MEDS ORDERED: VANCOMYCIN HCL 1,000 MG, VIAL MATE ADAPTER 1 EACH in NS 250 ML IV SCH (11:05)
[2020-12-03] MEDS ORDERED: GLUCAGON INJ 1MG VIAL SC PRN (11:05)
[2020-12-03] MEDS ORDERED: DEXTROSE 50% 50 ML SYRINGE IV PRN (11:05)
--- OUTSIDE RECORDS SUMMARY | 2020-12-03 11:23 | CCD ---
Author Author [facility] Organization [facility] Address Unknown Phone Unavailable Care Team Providers Care [place] Conservationist Name Role Phone Freddie WANG MD Unavailable [...] Unavailable CARMEN DAVIS Unavailable Unavailable Pleskach, Chelly MEDICAL TRANSCRIBER Unavailable Unavailable Pleskach, Chelly MEDICAL TRANSCRIBER Unavailable Unavailable Pleskach, Chelly MEDICAL TRANSCRIBER Unavailable Unavailable Pleskach, Chelly MEDICAL TRANSCRIBER Unavailable Unavailable Pleskach, Chelly MEDICAL TRANSCRIBER Unavailable Unavailable Pleskach, Chelly MEDICAL TRANSCRIBER Unavailable Unavailable Pleskach, Chelly MEDICAL TRANSCRIBER Unavailable Unavailable Pleskach, Chelly MEDICAL TRANSCRIBER Unavailable Unavailable Pleskach, Chelly MEDICAL TRANSCRIBER Unavailable Unavailable Pleskach, Chelly MEDICAL TRANSCRIBER Unavailable Unavailable Pleskach, Chelly MEDICAL TRANSCRIBER Unavailable Unavailable Pleskach, Chelly MEDICAL TRANSCRIBER Unavailable Unavailable Pleskach, Chelly MEDICAL TRANSCRIBER Unavailable Unavailable Pleskach, Chelly MEDICAL TRANSCRIBER Unavailable Unavailable Pleskach, Chelly MEDICAL TRANSCRIBER Unavailable Unavailable Pleskach, Chelly MEDICAL TRANSCRIBER Unavailable Unavailable Pleskach, Chelly MEDICAL TRANSCRIBER Unavailable Unavailable Pleskach, Chelly MEDICAL TRANSCRIBER Unavailable Unavailable Pleskach, Chelly MEDICAL TRANSCRIBER Unavailable Unavailable Pleskach, Chelly MEDICAL TRANSCRIBER Unavailable Unavailable Pleskach, Chelly MEDICAL TRANSCRIBER Unavailable Unavailable Pleskach, Chelly MEDICAL TRANSCRIBER Unavailable Unavailable Pleskach, Chelly MEDICAL TRANSCRIBER Unavailable Unavailable Pleskach, Chelly MEDICAL TRANSCRIBER Unavailable Unavailable Pleskach, Chelly MEDICAL TRANSCRIBER Unavailable Unavailable Pleskach, Chelly MEDICAL TRANSCRIBER Unavailable Unavailable Pleskach, Chelly MEDICAL TRANSCRIBER Unavailable Unavailable Pleskach, Chelly MEDICAL TRANSCRIBER Unavailable Unavailable Pleskach, Chelly MEDICAL TRANSCRIBER Unavailable Unavailable Pleskach, Chelly MEDICAL TRANSCRIBER Unavailable Unavailable Pleskach, Chelly MEDICAL TRANSCRIBER Unavailable Unavailable Pleskach, Chelly MEDICAL TRANSCRIBER Unavailable Unavailable Pleskach, Chelly MEDICAL TRANSCRIBER Unavailable Unavailable Pleskach, Chelly MEDICAL TRANSCRIBER Unavailable Unavailable Pleskach, Chelly MEDICAL TRANSCRIBER Unavailable Unavailable Pleskach, Chelly MEDICAL TRANSCRIBER Unavailable Unavailable Pleskach, Chelly MEDICAL TRANSCRIBER Unavailable Unavailable Pleskach, Chelly MEDICAL TRANSCRIBER Unavailable Unavailable Pleskach, Chelly MEDICAL TRANSCRIBER Unavailable Unavailable Pleskach, Chelly MEDICAL TRANSCRIBER Unavailable Unavailable Pleskach, Chelly MEDICAL TRANSCRIBER Unavailable Unavailable Pleskach, Chelly MEDICAL TRANSCRIBER Unavailable Unavailable AMEZQUITA, ANSHUL KWABENA MEDICAL TRANSCRIBER-C, MSN Unavailable Unavailab le AMEZQUITA, ANSHUL KWABENA MEDICAL TRANSCRIBER-C, MSN Unavailable Unavailab le AMEZQUITA, ANSHUL KWABENA MEDICAL TRANSCRIBER-C, MSN Unavailable Unavailab le AMEZQUITA, ANSHUL KWABENA MEDICAL TRANSCRIBER-C, MSN Unavailable Unavailab le AMEZQUITA, ANSHUL KWABENA MEDICAL TRANSCRIBER-C, MSN Unavailable Unavailab le AMEZQUITA, ANSHUL KWABENA MEDICAL TRANSCRIBER-C, MSN Unavailable Unavailab le AMEZQUITA, ANSHUL KWABENA MEDICAL TRANSCRIBER-C, MSN Unavailable Unavailab le AMEZQUITA, ANSHUL KWABENA MEDICAL TRANSCRIBER-C, MSN Unavailable Unavailab le AMEZQUITA, ANSHUL KWABENA MEDICAL TRANSCRIBER-C, MSN Unavailable Unavailab le AMEZQUITA, ANSHUL KWABENA MEDICAL TRANSCRIBER-C, MSN Unavailable Unavailab le AMEZQUITA, ANSHUL KWABENA MEDICAL TRANSCRIBER-C, MSN Unavailable Unavailab le AMEZQUITA, ANSHUL KWABENA MEDICAL TRANSCRIBER-C, MSN Unavailable Unavailab le AMEZQUITA, ANSHUL KWABENA MEDICAL TRANSCRIBER-C, MSN Unavailable Unavailab le AMEZQUITA, ANSHUL KWABENA MEDICAL TRANSCRIBER-C, MSN Unavailable Unavailab le AMEZQUITA, ANSHUL KWABENA MEDICAL TRANSCRIBER-C, MSN Unavailable Unavailab le AMEZQUITA, ANSHUL KWABENA MEDICAL TRANSCRIBER-C, MSN Unavailable Unavailab le AMEZQUITA, ANSHUL KWABENA MEDICAL TRANSCRIBER-C, MSN Unavailable Unavailab le AMEZQUITA, ANSHUL KWABENA MEDICAL TRANSCRIBER-C, MSN Unavailable Unavailab le AMEZQUITA, ANSHUL KWABENA MEDICAL TRANSCRIBER-C, MSN Unavailable Unavailab le AMEZQUITA, ANSHUL KWABENA MEDICAL TRANSCRIBER-C, MSN Unavailable Unavailab le AMEZQUITA, ANSHUL KWABENA MEDICAL TRANSCRIBER-C, MSN Unavailable Unavailab le AMEZQUITA, ANSHUL KWABENA MEDICAL TRANSCRIBER-C, MSN Unavailable Unavailab le AMEZQUITA, ANSHUL KWABENA MEDICAL TRANSCRIBER-C, MSN Unavailable Unavailab le AMEZQUITA, ANSHUL KWABENA MEDICAL TRANSCRIBER-C, MSN Unavailable Unavailab le AMEZQUITA, ANSHUL KWABENA MEDICAL TRANSCRIBER-C, MSN Unavailable Unavailab le AMEZQUITA, ANSHUL KWABENA MEDICAL TRANSCRIBER-C, MSN Unavailable Unavailab le AMEZQUITA, ANSHUL KWABENA MEDICAL TRANSCRIBER-C, MSN Unavailable Unavailab le AMEZQUITA, ANSHUL KWABENA MEDICAL TRANSCRIBER-C, MSN Unavailable Unavailab le AMEZQUITA, ANSHUL KWABENA MEDICAL TRANSCRIBER-C, MSN Unavailable Unavailab le AMEZQUITA, ANSHUL KWABENA MEDICAL TRANSCRIBER-C, MSN Unavailable Unavailab le AMEZQUITA, ANSHUL KWABENA MEDICAL TRANSCRIBER-C, MSN Unavailable Unavailab le AMEZQUITA, ANSHUL KWABENA MEDICAL TRANSCRIBER-C, MSN Unavailable Unavailab le AMEZQUITA, ANSHUL KWABENA MEDICAL TRANSCRIBER-C, MSN Unavailable Unavailab le AMEZQUITA, ANSHUL KWABENA MEDICAL TRANSCRIBER-C, MSN Unavailable Unavailab le AMEZQUITA, ANSHUL KWABENA MEDICAL TRANSCRIBER-C, MSN Unavailable Unavailab le AMEZQUITA, ANSHUL KWABENA MEDICAL TRANSCRIBER-C, MSN Unavailable Unavailab le AMEZQUITA, ANSHUL KWABENA MEDICAL TRANSCRIBER-C, MSN Unavailable Unavailab le AMEZQUITA, ANSHUL KWABENA MEDICAL TRANSCRIBER-C, MSN Unavailable Unavailab le AMEZQUITA, ANSHUL KWABENA MEDICAL TRANSCRIBER-C, MSN Unavailable Unavailab le AMEZQUITA, ANSHUL KWABENA MEDICAL TRANSCRIBER-C, MSN Unavailable Unavailab le AMEZQUITA, ANSHUL KWABENA MEDICAL TRANSCRIBER-C, MSN Unavailable Unavailab le AMEZQUITA, ANSHUL KWABENA MEDICAL TRANSCRIBER-C, MSN Unavailable Unavailab le AMEZQUITA, ANSHUL KWABENA MEDICAL TRANSCRIBER-C, MSN Unavailable Unavailab le AMEZQUITA, ANSHUL KWABENA MEDICAL TRANSCRIBER-C, MSN Unavailable Unavailab le AMEZQUITA, ANSHUL KWABENA MEDICAL TRANSCRIBER-C, MSN Unavailable Unavailab le Selene Cummings MD [...] A RASTA DO Unavailable Unavailable SEARS, A ARSTA DO Unavailable Unavailable SEARS, A RASTA DO [...] Unavailable Iraheta, L Michelle RPA Unavailable Unavailable Irhaeta, L Michelle RPA Unavailable Unavailable Iraheta, L [...] Petra DO Unavailable Unavailable Demetrio PALMER Unavailable [phone] Demetrio PALMER Unavailable [phone] Demetrio PALMER Unavailable [phone] Demetrio PALMER Unavailable [phone] Demetrio PALMER PETRA Unavailable [phone] MICHAEL WANG MD Unavailable Unavailable Chester, Noe PA Unavailable Unavailable Chester, Noe PA Unavailable Unavailable Chester, Noe PA Unavailable Unavailable Chester, Noe PA Unavailable Unavailable Chester, Noe PA Unavailable Unavailable Chester, Noe PA Unavailable Unavailable Chester, Noe PA Unavailable Unavailable Chester, Noe PA Unavailable Unavailable Chester, Noe PA Unavailable Unavailable Chester, Noe PA Unavailable Unavailable Chester, Noe PA Unavailable Unavailable Chester, Noe PA Unavailable Unavailable Chester, Noe PA Unavailable Unavailable Chester, Noe PA Unavailable Unavailable Chester, Noe PA Unavailable Unavailable Chester, Noe PA Unavailable Unavailable Chester, Noe PA Unavailable Unavailable Chester, Noe PA Unavailable Unavailable [facility], [id number] Unavailable [phone] [facility], [id number] Unavailable [phone] [facility], [id number] Unavailable [phone] [facility], [id number] Unavailable [phone] [facility], [id number] Unavailable [phone] [facility], [id number] Unavailable [phone] [facility], [id number] Unavailable [phone] [facility], [id number] Unavailable [phone] [facility], [id number] Unavailable [phone] [facility], [id number] Unavailable [phone] [facility], [id number] Unavailable [phone] Conway, W Petra RPA-C Unavailable Unavailable Conway, [...] is protected by Article 27-F of the [facility] Public Health law. If you continue you may have access to information: Regarding HIV / AIDS; Provided by facilities licensed or operated by the [facility] Office of Mental Health; or Provided by the [facility] Office for People With Developmental Disabilities. If such information is present, then the following [facility] mandated warning applies: This information has [...] law may result in a fine or fci sentence or both. A general authorization for the release of medical or other information is NOT sufficient authorization for further disc losure. Allergies and Adverse Reactions Type Description Substance Reaction Status Data Source(s ) Drug allergy red (food color) red (food color) [facility] Drug [facility] polymyxin [facility] Drug allergy fluox[facility] Drug allergy tramadol tramadol [facility] Drug allergy bacitracin bacitracin [facility] Drug allergy neomycin neomycin [facility] Drug allergy S[facility]FA [facility] Family History Family Member Name Family Member Gender Family Member Status Date o f Status Description Data Source(s) Unknown Male Problem [facility] ([facility]) () Encounters Encounter Providers Location Date Indications Data Source(s ) [place] [address] [address] 11/27/2020 12:00:00 AM EDT eCW1 (Critical access hospital) [place] [address] [address] 11/23/2020 12:00:00 AM EDT [facility] ([facility]) [place] [address] [address] 11/09/2020 12:00:00 AM EDT eCW1 ([facility]) [place] [address] [address] 08/31/2020 12:00:00 AM EDT eCW1 ([facility]) [place] [address] [address] 08/23/2020 12:00:00 AM EDT eCW1 ([facility]) [place] [address] [address] 08/11/2020 12:00:00 AM EDT eCW1 ([facility]) [place] [address] [address] 08/08/2020 12:00:00 AM EDT eCW1 ([facility]) [place] [address] [address] 08/04/2020 12:00:00 AM EDT eCW1 ([facility]) [place] [address] [address] 08/02/2020 12:00:00 AM EDT eCW1 ([facility]) [place] [address] [address] 07/31/2020 12:00:00 AM EDT eCW1 ([facility]) [place] [address] [address] 07/18/2020 12:00:00 AM EDT eCW1 ([facility]) [place] [address] [address] 07/17/2020 12:00:00 AM EDT eCW1 ([facility]) [place] [address] [address] 07/14/2020 12:00:00 AM EDT eCW1 ([facility]) [place] [address] [address] 07/14/2020 12:00:00 AM EDT eCW1 ([facility]) [place] [address] [address] 07/12/2020 12:00:00 AM EDT eCW1 ([facility]) [place] [address] [address] 07/12/2020 12:00:00 AM EDT eCW1 ([facility]) [place] [address] [address] 07/11/2020 12:00:00 AM EDT eCW1 ([facility]) [place] [address] [address] 06/29/2020 12:00:00 AM EDT eCW1 ([facility]) [place] [address] [address] 06/28/2020 12:00:00 AM EDT eCW1 ([facility]) [place] [address] [address] 06/23/2020 12:00:00 AM EDT eCW1 ([facility]) [place] [address] [address] 06/19/2020 12:00:00 AM EDT eCW1 ([facility]) Inpatient Attender: GEORGIA DENIS DOAttender : MICHAEL WANG MDAttender: MICHAEL WANG MDAttender: MEHUL ARAIZA MDAttender: MEHUL ARAIZA MDAdmitter: MICHAEL WANG MD [id number] 05/18/2020 07:42:00 PM EDT - 06/11/2020 06:33:00 PM EDT [facility] Patient discharged. Outpatient 05/18/2020 04:36:00 PM EDT Pneumonia , sepsis, needs [facility] Pneumonia, sepsis, needs MRI Emergency Attender: Favio ARNETT ttender: FAVIO VILLEGASAttender: STEVE DAVIS EMERGENCY ROOM-ER 05/18/2020 01:32:00 PM EDT - 05/18/2020 06:10:00 PM EDT [facility] Patient discharged. Outpatient Attender: Favioescobar Villegas DO ER-RAD 05/18/2020 10:45:00 AM EDT [facility] Outpatient Attender: Favio Bakari DOConsultant: [facility] p [id number] 05/17/2020 11:52:00 AM EDT [facility] Outpatient Attender: Zhanna Cummings MDConsultant: [facility] [id number] 05/17/2020 05:40:00 AM EDT [facility] Inpatient Attender: Zhanna Cummings MDAdmitter: Zhanna Cummings MD EMERGENCY ROOM-2N 05/16/2020 08:11:00 PM EDT - 05/18/2020 01:31:00 PM EDT [facility] Patient discharged. Outpatient Attender: OTHER PHYSICIANConsultant: [facility] [id number] 05/10/2020 08:50:00 PM EDT [facility] Inpatient Attender: [id number] MEDENT_ 23Attender: Petra Ortiz DOAdmitter: [id number] [facility]_23 EMERGENCY ROOM-2N 05/10/2020 05:30:00 PM EDT - 05/16/2020 08:10:00 PM EDT [facility] Patient discharged. Outpatient Attender: JONES BECKETT PAConsultant: [facility] p [id number] 05/10/2020 02:09:00 PM EDT [facility] Emergency Attender: JONES RUIZ EMERGENCY ROOM-EMERG ENCY ROOM 05/10/2020 12:22:00 PM EDT - 05/10/2020 12:22:00 PM EDT [facility] Patient discharged. Outpatient Attender: RASTA Ernandez/Alie/[place] 01/04/2020 01:30:00 PM EST [facility] ([facility] Outpatient Attender: Chelly Irizarry [facility] Main Office 01/03/2020 0 1:30:00 PM EST [facility] ([facility] Outpatient Attender: Chelly Irizarry [facility] Main Office 12/20/2019 0 1:30:00 PM EST MED[facility] ([facility] Outpatient Attender: RASTA RAO DO [place] 12/15/2019 02:00:00 PM EST [facility] ([facility] Outpatient Attender: Radha Jones/[place]/ [place] 12/02/2019 11:15:00 AM EDT [facility] ([facility] Unknown [address] [place] [address], [place] [address] 11/30/2019 12:00:00 AM EDT eCW1 (Critical access hospital) Outpatient [facility] 11/29/2019 12:02:06 AM EDT [facility] Outpatient Attender: Michelle Iraheta RPA [place]/R eindl 10/28/2019 11:45:00 AM EDT [facility] ([facility] Outpatient Attender: Chelly Irizarry [facility] Main Office 10/20/2019 0 2:45:00 PM EDT MED[facility] ([facility] Emergency Attender: JONES RUIZ EMERGENCY ROOM-ER 04:10:00 PM [facility] - 02/22/2016 07:48:00 PM [facility] Preadmit Attender: DELANEY SO MDAdmitter: KATHERIN SO MD EMERGENCY ROOM-2N 01/10/2016 09:39:00 AM EST - 10/13/2015 03:46:00 PM [facility] Outpatient Attender: PAU HOLLAND MD EMERGENCY ROOM-LABOT HPROV 12/27/2015 02:51:00 PM EST - 12/27/2015 02:51:00 PM [facility] Emergency Attender: Petra Conway RPA-C EMERGENCY ROOM-ER 1 03:15:00 PM EDT - 11/22/2015 07:20:00 PM [facility] Outpatient Attender: KWABENA CURRAN-C, MSN EMERGENCY RAMSEY M-RIVCLI 10/30/2015 01:30:00 PM [facility] Inpatient Attender: Noe Anderson PAAdmitter: PETRA ALBRECHTSHANE IN EMERGENCY ROOM-2N 10/19/2015 10:22:00 AM EDT - 10/25/2015 04:15:00 PM [facility] Inpatient Attender: DELANEY SO MDAdmitter: KATHERIN SO MD EMERGENCY ROOM-2N 10/13/2015 03:45:00 PM EDT - 10/19/2015 10:21:00 AM [facility] Immunizations Vaccine Date Status Description Data Source(s) COVID-19 VACCINE Moderna 07/06/2020 12:00:00 AM EDT completed [facility] Vaccine Series Complete: NOThis Data was [facility] to [facility] Via [employer]acks[facility]. New in 2011. IIV4 12/15/2019 04:05:00 AM EST completed MED[facility] ([facility]) New in 2011. IIV4 12/14/2019 01:32:00 PM EST completed MEDENT ([facility] ) Medications Medication Brand Name Start Date Product Form Dose Route Admi nistrative Instructions Pharmacy Instructions Status Indications Reaction Description Data Source(s) Nicotine 7 MG/24HR Nicotine 7 MG/24HR 07/28/2020 12:00:00 AM EDT 1.0 {patch_to_skin} active Nicotine 7 MG/24 HR eCW1 ([facility]) Nicotine 7 MG/24HR Nicotine 7 MG/24HR 07/28/2020 12:00:00 AM EDT 1.0 {patch_to_skin} active Nicotine 7 MG/24 HR eCW1 ([facility]) Nicotine 7 MG/24HR Nicotine 7 MG/24HR 07/28/2020 12:00:00 AM EDT 1.0 {patch_to_skin} active Nicotine 7 MG/24 HR eCW1 ([facility]) Nicotine 7 MG/24HR Nicotine 7 MG/24HR 07/28/2020 12:00:00 AM EDT 1.0 {patch_to_skin} active Nicotine 7 MG/24 HR eCW1 ([facility]) Nicotine 7 MG/24HR Nicotine 7 MG/24HR 07/28/2020 12:00:00 AM EDT 1.0 {patch_to_skin} active Nicotine 7 MG/24 HR eCW1 ([facility]) Nicotine 7 MG/24HR Nicotine 7 MG/24HR 07/28/2020 12:00:00 AM EDT 1.0 {patch_to_skin} active Nicotine 7 MG/24 HR eCW1 ([facility]) Nicotine 7 MG/24HR Nicotine 7 MG/24HR 07/28/2020 12:00:00 AM EDT 1.0 {patch_to_skin} active Nicotine 7 MG/24 HR eCW1 ([facility]) Nicotine 7 MG/24HR Nicotine 7 MG/24HR 07/28/2020 12:00:00 AM EDT 1.0 {patch_to_skin} active Nicotine 7 MG/24 HR eCW1 ([facility]) Nicotine 7 MG/24HR Nicotine 7 MG/24HR 07/28/2020 12:00:00 AM EDT 1.0 {patch_to_skin} active Nicotine 7 MG/24 HR eCW1 ([facility]) Nicotine 7 MG/24HR Nicotine 7 MG/24HR 07/28/2020 12:00:00 AM EDT 1.0 {patch_to_skin} active Nicotine 7 MG/24 HR eCW1 ([facility]) Optifoam 4"X4" UNK 07/18/2020 12:00:00 AM EDT active Optifoam 4"X4" eCW1 ([facility]) Optifoam 4"X4" UNK 07/18/2020 12:00:00 AM EDT active Optifoam 4"X4" eCW1 ([facility]) Optifoam 4"X4" UNK 07/18/2020 12:00:00 AM EDT active Optifoam 4"X4" eCW1 ([facility]) Optifoam 4"X4" UNK 07/18/2020 12:00:00 AM EDT active Optifoam 4"X4" eCW1 ([facility]) Optifoam 4"X4" UNK 07/18/2020 12:00:00 AM EDT active Optifoam 4"X4" eCW1 ([facility]) Optifoam 4"X4" UNK 07/18/2020 12:00:00 AM EDT active Optifoam 4"X4" eCW1 ([facility]) Optifoam 4"X4" UNK 07/18/2020 12:00:00 AM EDT active Optifoam 4"X4" eCW1 ([facility]) Optifoam 4"X4" UNK 07/18/2020 12:00:00 AM EDT active Optifoam 4"X4" eCW1 ([facility]) Optifoam 4"X4" Optifoam 4"X4" 07/18/2020 12:00:00 AM EDT active Optifoam 4"X4" eCW1 ([facility]) Optifoam 4"X4" UNK 07/18/2020 12:00:00 AM EDT active Optifoam 4"X4" eCW1 ([facility]) Optifoam 4"X4" UNK 07/18/2020 12:00:00 AM EDT active Optifoam 4"X4" eCW1 ([facility]) Optifoam 4"X4" Optifoam 4"X4" 07/18/2020 12:00:00 AM EDT active Optifoam 4"X4" eCW1 ([facility]) Acetaminophen 325 MG / Hydrocodone Marin trate 5 MG Oral Tablet Hydrocodone- Acetaminophen 5-325 MG Hydrocodone-Acetaminophen 5-325 MG 06/23/2020 12:00:00 AM EDT 1.0 {tablet_as_needed} active Hydrocodone-Acetaminophen 5-325 MG eCW1 ([facility]) gabapentin 100 MG Oral Capsule Gabapentin 100 MG Gabapentin 100 MG 06/23/2020 12:00:00 AM EDT 1.0 {capsule} active G abapentin 100 MG eCW1 ([facility]) Acetaminophen 325 MG / Hydrocodone Marin trate 5 MG Oral Tablet HYDROcodone- Acetaminophen 5-325 MG HYDROcodone-Acetaminophen 5-325 MG 06/23/2020 12:00:00 AM EDT 1.0 {tablet_as_needed} active HYDROcodone-Acetaminophen 5-325 MG eCW1 ([facility]) Alendronic acid 70 MG Oral Tablet Alendronate Sodium 7 0 MG Alendronate Sodium 70 MG 06/23/2020 12:00:00 AM EDT active Alendronate Sodium 70 MG eCW1 ([facility]) Acetaminophen 325 MG / Hydrocodone [place] trate 5 MG Oral Tablet HYDROcodone- Acetaminophen 5-325 MG HYDROcodone-Acetaminophen 5-325 MG 06/23/2020 12:00:00 AM EDT 1.0 {tablet_as_needed} active HYDROcodone-Acetaminophen 5-325 MG eCW1 ([facility]) HM Lidocaine Patch 4 % HM Lidocaine Patch 4 % 06/23/2020 12:00:00 AM E DT active HM Lidocaine Patch 4 % eC W1 ([facility]) Metformin hydrochloride 500 MG Oral Tablet Metformin H Cl 500 MG Metformin HCl 500 MG 06/23/2020 12:00:00 AM EDT 1.0 {tablet_with_a_meal} active Metformin HCl 500 MG eCW1 ([facility]) HM Lidocaine Patch 4 % HM Lidocaine Patch 4 % 06/23/2020 12:00:00 AM E DT active HM Lidocaine Patch 4 % eC W1 ([facility]) gabapentin 100 MG Oral Capsule Gabapentin 100 MG Gabapentin 100 MG 06/23/2020 12:00:00 AM EDT 1.0 {capsule} active G abapentin 100 MG eCW1 ([facility]) Acetaminophen 325 MG / Hydrocodone Marin trate 5 MG Oral Tablet HYDROcodone- Acetaminophen 5-325 MG HYDROcodone-Acetaminophen 5-325 MG 06/23/2020 12:00:00 AM EDT 1.0 {tablet_as_needed} active HYDROcodone-Acetaminophen 5-325 MG eCW1 ([facility]) HM Lidocaine Patch 4 % HM Lidocaine Patch 4 % 06/23/2020 12:00:00 AM E DT active eCW1 ([facility]) Alendronic acid 70 MG Oral Tablet Alendronate Sodium 7 0 MG Alendronate Sodium 70 MG 06/23/2020 12:00:00 AM EDT active eCW1 ([facility]) Acetaminophen 325 MG / Hydrocodone [place] trate 5 MG Oral Tablet Hydrocodone- Acetaminophen 5-325 MG Hydrocodone-Acetaminophen 5-325 MG 06/23/2020 12:00:00 AM EDT 1.0 {tablet_as_needed} active Hydrocodone-Acetaminophen 5-325 MG eCW1 ([facility]) Acetaminophen 325 MG / Hydrocodone [place] trate 5 MG Oral Tablet HYDROcodone- Acetaminophen 5-325 MG HYDROcodone-Acetaminophen 5-325 MG 06/23/2020 12:00:00 AM EDT 1.0 {tablet_as_needed} active HYDROcodone-Acetaminophen 5-325 MG eCW1 ([facility]) HM Lidocaine Patch 4 % HM Lidocaine Patch 4 % 06/23/2020 12:00:00 AM E DT active HM Lidocaine Patch 4 % eC W1 ([facility]) Acetaminophen 325 MG / Hydrocodone Marin trate 5 MG Oral Tablet HYDROcodone- Acetaminophen 5-325 MG HYDROcodone-Acetaminophen 5-325 MG 06/23/2020 12:00:00 AM EDT 1.0 {tablet_as_needed} active HYDROcodone-Acetaminophen 5-325 MG eCW1 ([facility]) Alendronic acid 70 MG Oral Tablet Alendronate Sodium 7 0 MG Alendronate Sodium 70 MG 06/23/2020 12:00:00 AM EDT active Alendronate Sodium 70 MG eCW1 ([facility]) Acetaminophen 325 MG / Hydrocodone [place] trate 5 MG Oral Tablet HYDROcodone- Acetaminophen 5-325 MG HYDROcodone-Acetaminophen 5-325 MG 06/23/2020 12:00:00 AM EDT 1.0 {tablet_as_needed} active HYDROcodone-Acetaminophen 5-325 MG eCW1 ([facility]) HM Lidocaine Patch 4 % HM Lidocaine Patch 4 % 06/23/2020 12:00:00 AM E DT active HM Lidocaine Patch 4 % eC W1 ([facility]) Metformin hydrochloride 500 MG Oral Tablet Metformin H Cl 500 MG Metformin HCl 500 MG 06/23/2020 12:00:00 AM EDT 1.0 {tablet_with_a_meal} active Metformin HCl 500 MG eCW1 ([facility]) HM Lidocaine Patch 4 % HM Lidocaine Patch 4 % 06/23/2020 12:00:00 AM E DT active HM Lidocaine Patch 4 % eC W1 ([facility]) HM Lidocaine Patch 4 % HM Lidocaine Patch 4 % 06/23/2020 12:00:00 AM E DT active HM Lidocaine Patch 4 % eC W1 ([facility]) Metformin hydrochloride 500 MG Oral Tablet metFORMIN H Cl 500 MG metFORMIN HCl 500 MG 06/23/2020 12:00:00 AM EDT 1.0 {tablet_with_a_meal} active metFORMIN HCl 500 MG eCW1 ([facility]) Alendronic acid 70 MG Oral Tablet Alendronate Sodium 7 0 MG Alendronate Sodium 70 MG 06/23/2020 12:00:00 AM EDT active Alendronate Sodium 70 MG eCW1 ([facility]) gabapentin 100 MG Oral Capsule Gabapentin 100 MG Gabapentin 100 MG 06/23/2020 12:00:00 AM EDT 1.0 {capsule} active G abapentin 100 MG eCW1 ([facility]) Metformin hydrochloride 500 MG Oral Tablet Metformin H Cl 500 MG Metformin HCl 500 MG 06/23/2020 12:00:00 AM EDT 1.0 {tablet_with_a_meal} active Metformin HCl 500 MG eCW1 ([facility]) gabapentin 100 MG Oral Capsule Gabapentin 100 MG Gabapentin 100 MG 06/23/2020 12:00:00 AM EDT 1.0 {capsule} active G abapentin 100 MG eCW1 ([facility]) HM Lidocaine Patch 4 % HM Lidocaine Patch 4 % 06/23/2020 12:00:00 AM E DT active HM Lidocaine Patch 4 % eC W1 ([facility]) HM Lidocaine Patch 4 % HM Lidocaine Patch 4 % 06/23/2020 12:00:00 AM E DT active HM Lidocaine Patch 4 % eC W1 ([facility]) Acetaminophen 325 MG / Hydrocodone Marin trate 5 MG Oral Tablet Hydrocodone- Acetaminophen 5-325 MG Hydrocodone-Acetaminophen 5-325 MG 06/23/2020 12:00:00 AM EDT 1.0 {tablet_as_needed} active eCW1 ([facility]) HM Lidocaine Patch 4 % HM Lidocaine Patch 4 % 06/23/2020 12:00:00 AM E DT active HM Lidocaine Patch 4 % eC W1 ([facility]) Metformin hydrochloride 500 MG Oral Tablet metFORMIN H Cl 500 MG metFORMIN HCl 500 MG 06/23/2020 12:00:00 AM EDT 1.0 {tablet_with_a_meal} active metFORMIN HCl 500 MG eCW1 ([facility]) gabapentin 100 MG Oral Capsule Gabapentin 100 MG Gabapentin 100 MG 06/23/2020 12:00:00 AM EDT 1.0 {capsule} active G abapentin 100 MG eCW1 ([facility]) gabapentin 100 MG Oral Capsule Gabapentin 100 MG Gabapentin 100 MG 06/23/2020 12:00:00 AM EDT 1.0 {capsule} active eCW1 ([facility]) Acetaminophen 325 MG / Hydrocodone Marin trate 5 MG Oral Tablet HYDROcodone- Acetaminophen 5-325 MG HYDROcodone-Acetaminophen 5-325 MG 06/23/2020 12:00:00 AM EDT 1.0 {tablet_as_needed} active HYDROcodone-Acetaminophen 5-325 MG eCW1 ([facility]) Acetaminophen 325 MG / Hydrocodone Marin trate 5 MG Oral Tablet HYDROcodone- Acetaminophen 5-325 MG HYDROcodone-Acetaminophen 5-325 MG 06/23/2020 12:00:00 AM EDT 1.0 {tablet_as_needed} active HYDROcodone-Acetaminophen 5-325 MG eCW1 ([facility]) Metformin hydrochloride 500 MG Oral Tablet Metformin H Cl 500 MG Metformin HCl 500 MG 06/23/2020 12:00:00 AM EDT 1.0 {tablet_with_a_meal} active Metformin HCl 500 MG eCW1 ([facility]) Acetaminophen 325 MG / Hydrocodone Mairn trate 5 MG Oral Tablet HYDROcodone- Acetaminophen 5-325 MG HYDROcodone-Acetaminophen 5-325 MG 06/23/2020 12:00:00 AM EDT 1.0 {tablet_as_needed} active HYDROcodone-Acetaminophen 5-325 MG eCW1 ([facility]) Alendronic acid 70 MG Oral Tablet Alendronate Sodium 7 0 MG Alendronate Sodium 70 MG 06/23/2020 12:00:00 AM EDT active Alendronate Sodium 70 MG eCW1 ([facility]) Alendronic acid 70 MG Oral Tablet Alendronate Sodium 7 0 MG Alendronate Sodium 70 MG 06/23/2020 12:00:00 AM EDT active Alendronate Sodium 70 MG eCW1 ([facility]) gabapentin 100 MG Oral Capsule Gabapentin 100 MG Gabapentin 100 MG 06/23/2020 12:00:00 AM EDT 1.0 {capsule} active G abapentin 100 MG eCW1 ([facility]) Alendronic acid 70 MG Oral Tablet Alendronate Sodium 7 0 MG Alendronate Sodium 70 MG 06/23/2020 12:00:00 AM EDT active Alendronate Sodium 70 MG eCW1 ([facility]) Metformin hydrochloride 500 MG Oral Tablet metFORMIN H Cl 500 MG metFORMIN HCl 500 MG 06/23/2020 12:00:00 AM EDT 1.0 {tablet_with_a_meal} active metFORMIN HCl 500 MG eCW1 ([facility]) Alendronic acid 70 MG Oral Tablet Alendronate Sodium 7 0 MG Alendronate Sodium 70 MG 06/23/2020 12:00:00 AM EDT active Alendronate Sodium 70 MG eCW1 ([facility]) Alendronic acid 70 MG Oral Tablet Alendronate Sodium 7 0 MG Alendronate Sodium 70 MG 06/23/2020 12:00:00 AM EDT active Alendronate Sodium 70 MG eCW1 ([facility]) Acetaminophen 325 MG / Hydrocodone Marin trate 5 MG Oral Tablet HYDROcodone- Acetaminophen 5-325 MG HYDROcodone-Acetaminophen 5-325 MG 06/23/2020 12:00:00 AM EDT 1.0 {tablet_as_needed} active HYDROcodone-Acetaminophen 5-325 MG eCW1 ([facility]) Metformin hydrochloride 500 MG Oral Tablet metFORMIN H Cl 500 MG metFORMIN HCl 500 MG 06/23/2020 12:00:00 AM EDT 1.0 {tablet_with_a_meal} active metFORMIN HCl 500 MG eCW1 ([facility]) Alendronic acid 70 MG Oral Tablet Alendronate Sodium 7 0 MG Alendronate Sodium 70 MG 06/23/2020 12:00:00 AM EDT active Alendronate Sodium 70 MG eCW1 ([facility]) Acetaminophen 325 MG / Hydrocodone Marin trate 5 MG Oral Tablet HYDROcodone- Acetaminophen 5-325 MG HYDROcodone-Acetaminophen 5-325 MG 06/23/2020 12:00:00 AM EDT 1.0 {tablet_as_needed} active HYDROcodone-Acetaminophen 5-325 MG eCW1 ([facility]) Metformin hydrochloride 500 MG Oral Tablet metFORMIN H Cl 500 MG metFORMIN HCl 500 MG 06/23/2020 12:00:00 AM EDT 1.0 {tablet_with_a_meal} active metFORMIN HCl 500 MG eCW1 ([facility]) Acetaminophen 325 MG / Hydrocodone Marin trate 5 MG Oral Tablet Hydrocodone- Acetaminophen 5-325 MG Hydrocodone-Acetaminophen 5-325 MG 06/23/2020 12:00:00 AM EDT 1.0 {tablet_as_needed} active Hydrocodone-Acetaminophen 5-325 MG eCW1 ([facility]) HM Lidocaine Patch 4 % HM Lidocaine Patch 4 % 06/23/2020 12:00:00 AM E DT active HM Lidocaine Patch 4 % eC W1 ([facility]) Metformin hydrochloride 500 MG Oral Tablet Metformin H Cl 500 MG Metformin HCl 500 MG 06/23/2020 12:00:00 AM EDT 1.0 {tablet_with_a_meal} active Metformin HCl 500 MG eCW1 ([facility]) gabapentin 100 MG Oral Capsule Gabapentin 100 MG Gabapentin 100 MG 06/23/2020 12:00:00 AM EDT 1.0 {capsule} active G abapentin 100 MG eCW1 ([facility]) Acetaminophen 325 MG / Hydrocodone Marin trate 5 MG Oral Tablet Hydrocodone- Acetaminophen 5-325 MG Hydrocodone-Acetaminophen 5-325 MG 06/23/2020 12:00:00 AM EDT 1.0 {tablet_as_needed} active Hydrocodone-Acetaminophen 5-325 MG eCW1 ([facility]) Metformin hydrochloride 500 MG Oral Tablet Metformin H Cl 500 MG Metformin HCl 500 MG 06/23/2020 12:00:00 AM EDT 1.0 {tablet_with_a_meal} active Metformin HCl 500 MG eCW1 ([facility]) HM Lidocaine Patch 4 % HM Lidocaine Patch 4 % 06/23/2020 12:00:00 AM E DT active HM Lidocaine Patch 4 % eC W1 ([facility]) Alendronic acid 70 MG Oral Tablet Alendronate Sodium 7 0 MG Alendronate Sodium 70 MG 06/23/2020 12:00:00 AM EDT active Alendronate Sodium 70 MG eCW1 ([facility]) Alendronic acid 70 MG Oral Tablet Alendronate Sodium 7 0 MG Alendronate Sodium 70 MG 06/23/2020 12:00:00 AM EDT active Alendronate Sodium 70 MG eCW1 ([facility]) gabapentin 100 MG Oral Capsule Gabapentin 100 MG Gabapentin 100 MG 06/23/2020 12:00:00 AM EDT 1.0 {capsule} active G abapentin 100 MG eCW1 ([facility]) HM Lidocaine Patch 4 % HM Lidocaine Patch 4 % 06/23/2020 12:00:00 AM E DT active HM Lidocaine Patch 4 % eC W1 ([facility]) gabapentin 100 MG Oral Capsule Gabapentin 100 MG Gabapentin 100 MG 06/23/2020 12:00:00 AM EDT 1.0 {capsule} active G abapentin 100 MG eCW1 ([facility]) Alendronic acid 70 MG Oral Tablet Alendronate Sodium 7 0 MG Alendronate Sodium 70 MG 06/23/2020 12:00:00 AM EDT active Alendronate Sodium 70 MG eCW1 ([facility]) Metformin hydrochloride 500 MG Oral Tablet metFORMIN H Cl 500 MG metFORMIN HCl 500 MG 06/23/2020 12:00:00 AM EDT 1.0 {tablet_with_a_meal} active metFORMIN HCl 500 MG eCW1 ([facility]) Metformin hydrochloride 500 MG Oral Tablet metFORMIN H Cl 500 MG metFORMIN HCl 500 MG 06/23/2020 12:00:00 AM EDT 1.0 {tablet_with_a_meal} active metFORMIN HCl 500 MG eCW1 ([facility]) Metformin hydrochloride 500 MG Oral Tablet metFORMIN H Cl 500 MG metFORMIN HCl 500 MG 06/23/2020 12:00:00 AM EDT 1.0 {tablet_with_a_meal} active metFORMIN HCl 500 MG eCW1 ([facility]) Alendronic acid 70 MG Oral Tablet Alendronate Sodium 7 0 MG Alendronate Sodium 70 MG 06/23/2020 12:00:00 AM EDT active Alendronate Sodium 70 MG eCW1 ([facility]) Alendronic acid 70 MG Oral Tablet Alendronate Sodium 7 0 MG Alendronate Sodium 70 MG 06/23/2020 12:00:00 AM EDT active Alendronate Sodium 70 MG eCW1 ([facility]) Acetaminophen 325 MG / Hydrocodone Marin trate 5 MG Oral Tablet Hydrocodone- Acetaminophen 5-325 MG Hydrocodone-Acetaminophen 5-325 MG 06/23/2020 12:00:00 AM EDT 1.0 {tablet_as_needed} active Hydrocodone-Acetaminophen 5-325 MG eCW1 ([facility]) Alendronic acid 70 MG Oral Tablet Alendronate Sodium 7 0 MG Alendronate Sodium 70 MG 06/23/2020 12:00:00 AM EDT active Alendronate Sodium 70 MG eCW1 ([facility]) Alendronic acid 70 MG Oral Tablet Alendronate Sodium 7 0 MG Alendronate Sodium 70 MG 06/23/2020 12:00:00 AM EDT active Alendronate Sodium 70 MG eCW1 ([facility]) Alendronic acid 70 MG Oral Tablet Alendronate Sodium 7 0 MG Alendronate Sodium 70 MG 06/23/2020 12:00:00 AM EDT active Alendronate Sodium 70 MG eCW1 ([facility]) Alendronic acid 70 MG Oral Tablet Alendronate Sodium 7 0 MG Alendronate Sodium 70 MG 06/23/2020 12:00:00 AM EDT active Alendronate Sodium 70 MG eCW1 ([facility]) Metformin hydrochloride 500 MG Oral Tablet metFORMIN H Cl 500 MG metFORMIN HCl 500 MG 06/23/2020 12:00:00 AM EDT 1.0 {tablet_with_a_meal} active metFORMIN HCl 500 MG eCW1 ([facility]) Metformin hydrochloride 500 MG Oral Tablet Metformin H Cl 500 MG Metformin HCl 500 MG 06/23/2020 12:00:00 AM EDT 1.0 {tablet_with_a_meal} active eCW1 ([facility]) HM Lidocaine Patch 4 % HM Lidocaine Patch 4 % 06/23/2020 12:00:00 AM E DT active HM Lidocaine Patch 4 % eC W1 ([facility]) HM Lidocaine Patch 4 % HM Lidocaine Patch 4 % 06/23/2020 12:00:00 AM E DT active HM Lidocaine Patch 4 % eC W1 ([facility]) Metformin hydrochloride 500 MG Oral Tablet Metformin H Cl 500 MG Metformin HCl 500 MG 06/23/2020 12:00:00 AM EDT 1.0 {tablet_with_a_meal} active Metformin HCl 500 MG eCW1 ([facility]) Metformin hydrochloride 500 MG Oral Tablet metFORMIN H Cl 500 MG metFORMIN HCl 500 MG 06/23/2020 12:00:00 AM EDT 1.0 {tablet_with_a_meal} active metFORMIN HCl 500 MG eCW1 ([facility]) Acetaminophen 325 MG / Hydrocodone Marin trate 5 MG Oral Tablet Hydrocodone- Acetaminophen 5-325 MG Hydrocodone-Acetaminophen 5-325 MG 06/23/2020 12:00:00 AM EDT 1.0 {tablet_as_needed} active Hydrocodone-Acetaminophen 5-325 MG eCW1 ([facility]) HM Lidocaine Patch 4 % HM Lidocaine Patch 4 % 06/23/2020 12:00:00 AM E DT active HM Lidocaine Patch 4 % eC W1 ([facility]) HM Lidocaine Patch 4 % HM Lidocaine Patch 4 % 06/23/2020 12:00:00 AM E DT active HM Lidocaine Patch 4 % eC W1 ([facility]) gabapentin 100 MG Oral Capsule Gabapentin 100 MG Gabapentin 100 MG 06/23/2020 12:00:00 AM EDT 1.0 {capsule} active G abapentin 100 MG eCW1 ([facility]) gabapentin 100 MG Oral Capsule Gabapentin 100 MG Gabapentin 100 MG 06/23/2020 12:00:00 AM EDT 1.0 {capsule} active G abapentin 100 MG eCW1 ([facility]) Alendronic acid 70 MG Oral Tablet Alendronate Sodium 7 0 MG Alendronate Sodium 70 MG 06/23/2020 12:00:00 AM EDT active Alendronate Sodium 70 MG eCW1 ([facility]) Acetaminophen 325 MG / Hydrocodone Marin trate 5 MG Oral Tablet Hydrocodone- Acetaminophen 5-325 MG Hydrocodone-Acetaminophen 5-325 MG 06/23/2020 12:00:00 AM EDT 1.0 {tablet_as_needed} active Hydrocodone-Acetaminophen 5-325 MG eCW1 ([facility]) Alendronic acid 70 MG Oral Tablet Alendronate Sodium 7 0 MG Alendronate Sodium 70 MG 06/23/2020 12:00:00 AM EDT active Alendronate Sodium 70 MG eCW1 ([facility]) gabapentin 100 MG Oral Capsule Gabapentin 100 MG Gabapentin 100 MG 06/23/2020 12:00:00 AM EDT 1.0 {capsule} active G abapentin 100 MG eCW1 ([facility]) gabapentin 100 MG Oral Capsule Gabapentin 100 MG Gabapentin 100 MG 06/23/2020 12:00:00 AM EDT 1.0 {capsule} active G abapentin 100 MG eCW1 ([facility]) HM Lidocaine Patch 4 % HM Lidocaine Patch 4 % 06/23/2020 12:00:00 AM E DT active HM Lidocaine Patch 4 % eC W1 ([facility]) gabapentin 100 MG Oral Capsule Gabapentin 100 MG Gabapentin 100 MG 06/23/2020 12:00:00 AM EDT 1.0 {capsule} active G abapentin 100 MG eCW1 ([facility]) HM Lidocaine Patch 4 % HM Lidocaine Patch 4 % 06/23/2020 12:00:00 AM E DT active HM Lidocaine Patch 4 % eC W1 ([facility]) Metformin hydrochloride 500 MG Oral Tablet metFORMIN H Cl 500 MG metFORMIN HCl 500 MG 06/23/2020 12:00:00 AM EDT 1.0 {tablet_with_a_meal} active metFORMIN HCl 500 MG eCW1 ([facility]) Metformin hydrochloride 500 MG Oral Tablet Metformin H Cl 500 MG Metformin HCl 500 MG 06/23/2020 12:00:00 AM EDT 1.0 {tablet_with_a_meal} active Metformin HCl 500 MG eCW1 ([facility]) Acetaminophen 325 MG / Hydrocodone Marin trate 5 MG Oral Tablet Hydrocodone- Acetaminophen 5-325 MG Hydrocodone-Acetaminophen 5-325 MG 06/23/2020 12:00:00 AM EDT 1.0 {tablet_as_needed} active Hydrocodone-Acetaminophen 5-325 MG eCW1 ([facility]) Metformin hydrochloride 500 MG Oral Tablet metFORMIN H Cl 500 MG metFORMIN HCl 500 MG 06/23/2020 12:00:00 AM EDT 1.0 {tablet_with_a_meal} active metFORMIN HCl 500 MG eCW1 ([facility]) gabapentin 100 MG Oral Capsule Gabapentin 100 MG Gabapentin 100 MG 06/23/2020 12:00:00 AM EDT 1.0 {capsule} active G abapentin 100 MG eCW1 ([facility]) Acetaminophen 325 MG / Hydrocodone Mrain trate 5 MG Oral Tablet HYDROcodone- Acetaminophen 5-325 MG HYDROcodone-Acetaminophen 5-325 MG 06/23/2020 12:00:00 AM EDT 1.0 {tablet_as_needed} active HYDROcodone-Acetaminophen 5-325 MG eCW1 ([facility]) gabapentin 100 MG Oral Capsule Gabapentin 100 MG Gabapentin 100 MG 06/23/2020 12:00:00 AM EDT 1.0 {capsule} active G abapentin 100 MG eCW1 ([facility]) HM Lidocaine Patch 4 % HM Lidocaine Patch 4 % 06/23/2020 12:00:00 AM E DT active HM Lidocaine Patch 4 % eC W1 ([facility]) HM Lidocaine Patch 4 % HM Lidocaine Patch 4 % 06/23/2020 12:00:00 AM E DT active HM Lidocaine Patch 4 % eC W1 ([facility]) TENS Therapy Pain Relief 01/03/2020 12:00:00 AM [...] type / Coverage type Policy ID Covered republican ID Covered republican's relationship to krause Policy [place] Plan Information [place]IC[place] [id number] S [id number] MEDICARE A [id number] Self [id number] A [place] [employer] [id number] S [id number] Medicare P [id number] S [id number] A Today's Options Commercial [id number] Self [id number] WELLCARE [id number] SP [id number] TODAYS OPTIONS [id number] SP [id number] TODAYS OPTIONS [id number] SP [id number] WELLCARE MEDICARE HMO [id number] Self [id number] MEDICARE C [id number] S [id number] WELLCARE O [id number] S [id number] MEDICARE [id number] SP [id number] Wellcare Commercial [id number] Self [id number] Well Care Medigap Part B [id number] Self [id number] Today's Option Commercial [id number] Self [id number] Wellcare Commercial [id number] Self [id number] Well Care Medigap Part B [id number] Self [id number] Today's Option Commercial [id number] Self [id number] Wellcare Commercial [id number] S elf [id number] Well Care Mediweir Part B [id number] Self [id number] Today's Option Commercial [id number] Self [id number] ANSI-Health Maintenance Organization ( O) [id number] ANSI-Medicare Part B [id number] Today's Option Commercial [id number] Self [id number] ANSI-Medicare Part B [id number] ANSI-Health Maintenance Organization ( O) [id number] ANSI-Health Maintenance Organization ( O) [id number] ANSI-Medicare Part B [id number] Today's Option Commercial [id number] Self [id number] WELLCARE O [id number] S [id number] Today's Option Commercial [id number] Self [id number] Today's Option Commercial [id number] Self [id number] Today's Option Commercial [id number] Self [id number] Today's Option Commercial [id number] Self [id number] Today's Option Commercial [id number] Self [id number] Today's Option Commercial [id number] Self [id number] TODAYS OPTIONS/[place] O [id number] S [id number] MEDICARE C [id number] S [id number] A TODAYS OPTIONS [id number] SP [id number] MEDICAID [id number] SP [id number] MEDICARE [id number] SP [id number] A Today's Option Commercial [id number] 983.0 Self [id number] Today's Option Commercial [id number] 983.0 Self [id number] TODAYS OPTIONS [id number] SP [id number] Medicare [place] Medicare Primary [id number] Self [id number] [place] MEDICARE PART B C [id number] S [id number] MEDICARE PART A -O/P [id number] 18 [id number] [facility] C [id number] S [id number] WELLCARE [id number] SP [id number] MEDICARE MEDICARE [id number] Self ELA COUTURE MED ICARE WELLCARE [id number] S [id number] WELLCARE [id number] SP [id number] MEDICARE [id number] SP [id number] A MEDICARE [id number] SP [id number] [facility] [id number] S [id number] MEDICARE [id number] SP [id number] [employer] [id number] S [id number] [place]ICARE - [place] [id number] S [id number] Problems, Conditions, and Diagnoses Code Display Name Description Problem Type Effective Dates Data Source(s) Y92.[address] or not applicable UNSPECIFIED PL[address] OR NOT APPLICABLE Diagnosis 05/18/2020 07:42:00 PM EDT [facility] W19.XXXA Unspecified fall, initial encounter UNSP ECIFIED FALL, INITIAL ENCOUNTER Diagnosis 05/18/2020 07:42:[facility] E11.649 Type 2 diabetes mellitus with hypoglycem ia without coma TYPE 2 DIABETES MELLITUS WITH HYPOGLYCEMIA WITHOUT Diagnosis 05/18/2020 07:42:00 PM ED T [facility] B37.3 Candidiasis of vulva and vagina CANDIDIASIS OF VULVA A ND VAGINA Diagnosis 05/18/2020 07:42:00 PM EDT [facility] D69.6 Thrombocytopenia, unspecified THROMBOCYTOPENIA, UNSPEC IFIED Diagnosis 05/18/2020 07:42:00 PM EDT [facility] F19.10 Other psychoactive substance abuse, unco mplicated OTHER PSYCHOACTIVE SUBSTANCE ABUSE, UNCOMPLICATED Diagnosis 05/18/2020 07:42:00 PM EDT [facility] D72.829 Elevated white blood cell count, unspeci fied ELEVATED WHITE BLOOD CELL COUNT, UNSPECIFIED Diagnosis 05/18/2020 07:42:00 PM EDT [facility] M48.00 Spinal stenosis, site unspecified SPINAL STENOSI S, SITE UNSPECIFIED Diagnosis 05/18/2020 07:42:00 PM EDT [facility] T38.0X5A Adverse effect of glucocorti coids and synthetic analogues, initial encounter ADVERSE EFFECT OF GLUCOCORT/SYNTH ANALOG, INIT Diagnosis 05/18/2020 07:42:00 PM EDT [facility] E11.65 Type 2 diabetes mellitus with hyperglyce lee TYPE 2 DIABETES MELLITUS WITH HYPERGLYCEMIA Diagnosis 05/18/2020 07:42:00 PM EDT [facility] I12.9 Hypertensive chronic kidney disease with stage 1 through stage 4 chronic kidney disease, or unspecified chronic kidney disease HYPERTENSIVE CHRONIC KIDNEY DISEASE W STG 1-4/UNSP Diagnosis 05/18/2020 07:42:00 PM EDT [facility] D63.8 Anemia in other chronic diseases classif ied elsewhere ANEMIA IN OTHER CHRONIC DISEASES CLASSIFIED ELSEWH Diagnosis 05/18/2020 07:42:00 PM ED [facility] E11.51 Type 2 diabetes mellitus wit h diabetic peripheral angiopathy without gangrene TYPE 2 DIABETES W DIABETIC PERIPHERAL ANGIOPATH W/ Diagnosis 05/18/2020 07:42:00 PM [facility] N18.9 Chronic kidney disease, unspecified CHRONIC KIDN EY DISEASE, UNSPECIFIED Diagnosis 05/18/2020 07:42:00 PM [facility] E11.22 Type 2 diabetes mellitus with diabetic c hronic kidney disease TYPE 2 DIABETES MELLITUS W DIABETIC CHRONIC KIDNEY Diagnosis 05/18/2020 07:42:00 PM [facility] 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, not elsewhere classified OT DISORDERS OF PLASMA-PROTEIN METABOLISM, NEC Diagnosis 2020 07:42:00 PM [facility] S22.019A Unspecified fracture of firs t thoracic vertebra, initial encounter for closed fracture UNSP FRACTURE OF FIRST THORACIC VERTEBRA, INIT FOR Diagnosis 05/18/2020 07:42:00 PM [facility] N17.9 Acute kidney failure, unspecified ACUTE KIDNEY F AILURE, UNSPECIFIED Diagnosis 05/18/2020 07:42:00 PM [facility] J44.1 Chronic obstructive pulmonary disease wi th (acute) exacerbation CHRONIC OBSTRUCTIVE PULMONARY DISEASE W (ACUTE) EX Diagnosis 05/18/2020 07:42: 00 PM [facility] J90 Pleural effusion, not elsewhere classifi ed PLEURAL EFFUSION, NOT ELSEWHERE CLASSIFIED Diagnosis 05/18/2020 07:42:00 PM EDT [facility] J98.11 Atelectasis ATELECTASIS Diagnosis 05/18/2020 07:42:00 PM EDT [facility] N39.0 Urinary tract infection, site not specif ied URINARY TRACT INFECTION, SITE NOT SPECIFIED Diagnosis 05/18/2020 07:42:00 PM EDT [facility] J96.21 Acute and chronic respiratory failure wi th hypoxia ACUTE AND CHRONIC RESPIRATORY FAILURE WITH HYPOXIA Diagnosis 05/18/2020 07:42:00 PM EDT [facility] J15.212 Pneumonia due to Methicillin resistant S taphylococcus aureus PNEUMONIA DUE TO METHICILLIN RESISTANT STAPHYLOCOC Diagnosis 05/18/2020 07:42:00 PM EDT [facility] S22.029A Unspecified fracture of [place] thoracic vertebra, initial encounter for closed fracture UNSP FRACTURE OF SECOND THORACIC VERTEBRA, INIT FO Diagnosis 05/18/2020 07:42:00 PM EDT [facility] M54.5 Low back pain LOW BACK PAIN Diagnosis 05/18/2020 07:42:00 PM EDT [facility] Z99.81 Dependence on supplemental oxygen DEPENDENCE ON SUPPLEMENTAL OXYGEN Diagnosis 05/18/2020 07:42:00 PM EDT [facility] R53.81 Other malaise OTHER MALAISE Diagnosis 05/18/2020 07:42:00 PM EDT [facility] E03.9 Hypothyroidism, unspecified HYPOTHYROIDISM, UNSPECIFIE D Diagnosis 05/18/2020 07:42:00 PM EDT [facility] F41.9 Anxiety disorder, unspecified ANXIETY DISORDER, UNSPEC IFIED Diagnosis 05/18/2020 07:42:00 PM EDT [facility] F17.200 Nicotine dependence, unspecified, uncomp licated NICOTINE DEPENDENCE, UNSPECIFIED, UNCOMPLICATED Diagnosis 05/18/2020 07:42:00 PM EDT [facility] E78.5 Hyperlipidemia, unspecified HYPERLIPIDEMIA, UNSPECIFIE D Diagnosis 05/18/2020 07:42:00 PM EDT [facility] F32.9 Major depressive disorder, single episod e, unspecified MAJOR DEPRESSIVE DISORDER, SINGLE EPISODE, UNSPECI Diagnosis 05/18/2020 07:42:00 PM EDT [facility] J44.9 Chronic obstructive pulmonary disease, u nspecified CHRONIC OBSTRUCTIVE PULMONARY DISEASE, UNSPECIFIED Diagnosis 05/18/2020 07:42:00 PM [facility] Pneumonia, sepsis, needs MRI Pneumonia, sepsis, needs MRI Diagnosis 05/18/2020 04:36:00 PM [facility] Z87.891 Personal history of nicotine dependence PERSONAL HISTORY OF NICOTINE DEPENDENCE Diagnosis 05/18/2020 01:32:00 PM [facility] Z99.81 Dependence on supplemental oxygen DEPENDENCE ON SUPPLEMENTAL OXYGEN Diagnosis 05/18/2020 01:32:00 PM [facility] 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 [employer]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) USE OF OPIATE ANALGESIC Diagnosis 05/18/2020 01:32:00 PM [facility] Z79.02 long term care social worker (current) use of antithromboti cs/antiplatelets CORRECTION (CURRENT) USE OF ANTITHROMBOTICS/ANTIPLA Diagnosis 05/18/2020 01:32:00 PM [facility] Z79.899 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 O THER CORRECTION (CURRENT) DRUG THERAPY Diagnosis 05/18/2020 01:32:00 PM [facility] I10 Essential (primary) hypertension ESSENTIAL (PRIMARY) H YPERTENSION Diagnosis 05/18/2020 01:32:00 PM [facility] E11.9 Type 2 diabetes mellitus without complic ations TYPE 2 DIABETES MELLITUS WITHOUT COMPLICATIONS Diagnosis 05/18/2020 01:32:00 PM [facility] J44.9 Chronic obstructive pulmonary disease, u nspecified CHRONIC OBSTRUCTIVE PULMONARY DISEASE, UNSPECIFIED Diagnosis 05/18/2020 01:32:00 PM [facility] K59.00 Constipation, unspecified CONSTIPATION, UNSPECIFIED Di agnosis 05/18/2020 01:32:00 PM [facility] N17.9 Acute kidney failure, unspecified ACUTE KIDNEY F AILURE, UNSPECIFIED Diagnosis 05/18/2020 01:32:00 PM [facility] I16.0 HYPERTENSIVE URGENCY HYPERTENSIVE URGENCY Diagnosis 05/18/2020 01:32:00 PM [facility] G93.41 Metabolic encephalopathy METABOLIC ENCEPHALOPATHY Diag nosis 05/18/2020 01:32:00 PM [facility] G89.29 Other chronic pain OTHER CHRONIC PAIN Diagnosis 09/2020 01:32:00 PM [facility] M54.5 Low back pain LOW BACK PAIN Diagnosis 05/18/2020 01:32:00 PM [facility] D72.829 Elevated white blood cell count, unspeci fied ELEVATED WHITE BLOOD CELL COUNT, UNSPECIFIED Diagnosis 05/18/2020 01:32:00 PM [facility] l J18.9 Pneumonia, unspecified organism PNEUMONIA, UNSPECIFIED ORGANISM Diagnosis 05/18/2020 01:32:00 PM [facility] R53.1 Weakness WEAKNESS Diagnosis 05/18/2020 01:32:00 PM [facility] Z45.2 Encounter for adjustment and management of vascular access device ENCOUNTER FOR ADJUSTMENT AND MANAGEMENT OF VAD Diagnosis 021 10:45:00 AM [facility] Z79.899 Other correction (current) drug therapy 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) DRUG THERAPY Diagnosis 05/18/2020 10:45:00 AM [facility] N32.89 Other specified disorders of bladder OTH ER SPECIFIED DISORDERS OF BLADDER Diagnosis 05/16/2020 08:11:00 PM [facility] R41.0 Disorientation, unspecified DISORIENTATION, UNSPECIFIE D Diagnosis 05/16/2020 08:11:00 PM [facility] R45.1 Restlessness and agitation RESTLESSNESS AND AGITATION Diagnosis 05/16/2020 08:11:00 PM [facility] K59.03 DRUG INDUCED CONSTIPATION DRUG INDUCED CONSTIPATION Di agnosis 05/16/2020 08:11:00 PM [facility] K21.9 Gastro-esophageal reflux disease without esophagitis GASTRO-ESOPHAGEAL REFLUX DISEASE WITHOUT ESOPHAGIT Diagnosis 05/16/2020 08:11:00 PM [facility] M54.6 Pain in thoracic spine PAIN IN THORACIC SPINE Diagnosi s 05/16/2020 08:11:00 PM [facility] E78.5 Hyperlipidemia, unspecified HYPERLIPIDEMIA, UNSPECIFIE D Diagnosis 05/16/2020 08:11:00 PM [facility] R26.81 Unsteadiness on feet UNSTEADINESS ON FEET Diagnosis 05/16/2020 08:11:00 PM [facility] E11.649 Type 2 diabetes mellitus with hypoglycem ia without coma TYPE 2 DIABETES MELLITUS WITH HYPOGLYCEMIA WITHOUT Diagnosis 05/16/2020 08:11:00 PM [facility] R53.81 Other malaise OTHER MALAISE Diagnosis 05/16/2020 08:11:00 PM [facility] J96.21 Acute and chronic respiratory failure wi th hypoxia ACUTE AND CHRONIC RESPIRATORY FAILURE WITH HYPOXIA Diagnosis 05/16/2020 08:11:00 PM [facility] A41.9 Sepsis, unspecified organism SEPSIS, UNSPECIFIED ORGAN ISM Diagnosis 05/16/2020 08:11:00 PM [facility] J15.212 Pneumonia due to Methicillin resistant S taphylococcus aureus PNEUMONIA DUE TO METHICILLIN RESISTANT STAPHYLOCOCCUS AUREUS Diagnosis 07/2020 08:11:00 PM [facility] Z86.14 Personal history of Methicil criss resistant Staphylococcus aureus infection PERSONAL HISTORY OF METHICILLIN RESIS STAPH INFECT Diagnosis 05/10/2020 05:30:00 PM [facility] Z91.14 Patient's other noncompliance with medic ation regimen PATIENT'S OTHER NONCOMPLIANCE WITH MEDICATION NUZHAT Diagnosis 05/10/2020 05:30:00 PM [facility] Z79.51 intermediate (current) use of inhaled stero ids CORRECTION (CURRENT) USE OF INHALED STEROIDS Diagnosis 05/10/2020 05:30:[facility] PM [facility] Z91.81 History of falling HISTORY OF FALLING Diagnosis 05:30:00 PM [facility] Z87.448 Personal history of other diseases of ur inary system PERSONAL HISTORY OF OTHER DISEASES OF URINARY SYST Diagnosis 05/10/2020 05:30:00 PM [facility] I12.9 Hypertensive chronic kidney disease with stage 1 through stage 4 chronic kidney disease, or unspecified chronic kidney disease HYPERTENSIVE CHRONIC KIDNEY DISEASE W STG 1-4/UNSP Diagnosis 05/10/2020 05:30:00 PM [facility] K44.9 Diaphragmatic hernia without obstruction or gangrene DIAPHRAGMATIC HERNIA WITHOUT OBSTRUCTION OR GANGRE Diagnosis 05/10/2020 05:30:00 PM [facility] D64.9 Anemia, unspecified ANEMIA, UNSPECIFIED Diagnosis 0 05/10/2020 05:30:00 PM [facility] R59.1 Generalized enlarged lymph nodes GENERALIZED ENL ARGED LYMPH NODES Diagnosis 05/10/2020 05:30:00 PM [facility] F17.210 Nicotine dependence, cigarettes, uncompl icated NICOTINE DEPENDENCE, CIGARETTES, UNCOMPLICATED Diagnosis 05/10/2020 05:30:00 PM [facility] R41.3 Other amnesia OTHER AMNESIA Diagnosis 05/10/2020 05:30:00 PM [facility] I25.84 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 CORONARY ATHEROSCLEROSIS DUE TO CALCIFIED CORONARY Diagnosis 05/10/2020 05:30:0 0 PM [facility] F41.9 Anxiety disorder, unspecified ANXIETY DISORDER, UNSPEC IFIED Diagnosis 05/10/2020 05:30:00 PM [facility] F32.9 Major depressive disorder, single episod e, unspecified MAJOR DEPRESSIVE DISORDER, SINGLE EPISODE, UNSPECI Diagnosis 05/10/2020 05:30:00 PM [facility] E03.9 Hypothyroidism, unspecified HYPOTHYROIDISM, UNSPECIFIE D Diagnosis 05/10/2020 05:30:00 PM [facility] I73.9 Peripheral vascular disease, unspecified PERIPHERAL VASCULAR DISEASE, UNSPECIFIED Diagnosis 05/10/2020 05:30:00 PM [facility] E78.00 PURE HYPERCHOLESTEROLEMIA, UNSPECIFIED P URE HYPERCHOLESTEROLEMIA, UNSPECIFIED Diagnosis 05/10/2020 05:30:00 PM [facility] 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, not elsewhere classified OT DISORDERS OF PLASMA-PROTEIN METABOLISM, NEC Diagnosis 2020 05:30:00 PM [facility] R63.0 Anorexia ANOREXIA Diagnosis 05/10/2020 05:30:00 PM [facility] R80.9 Proteinuria, unspecified PROTEINURIA, UNSPECIFIED Diag nosis 05/10/2020 05:30:00 PM [facility] R26.2 Difficulty in walking, not elsewhere cla ssified DIFFICULTY IN WALKING, NOT ELSEWHERE CLASSIFIED Diagnosis 05/10/2020 05:30:00 PM [facility] M48.061 SPINAL STENOSIS, LUMBAR REGION WITHOUT N EUROGENIC SPINAL STENOSIS, LUMBAR REGION WITHOUT NEUROGENIC Diagnosis 05/10/2020 05:30:00 PM [facility] E11.65 Type 2 diabetes mellitus with hyperglyce lee TYPE 2 DIABETES MELLITUS WITH HYPERGLYCEMIA Diagnosis 05/10/2020 05:30:00 PM [facility] E87.8 Other disorders of electroly te and fluid balance, not elsewhere classified OT DISORDERS OF ELECTROLYTE AND FLUID BALANCE, NE Diagnosis 05/10/2020 05:30:00 PM [facility] R79.89 Other specified abnormal findings of blo od chemistry OTHER SPECIFIED ABNORMAL FINDINGS OF BLOOD LAYOUT DESIGNER Diagnosis 05/10/2020 05:30:00 PM [facility] E86.0 Dehydration DEHYDRATION Diagnosis 05/10/2020 05:30:00 PM [facility] N18.30 CHRONIC KIDNEY DISEASE, STAGE 3 UNSPECIF IED CHRONIC KIDNEY DISEASE, STAGE 3 UNSPECIFIED Diagnosis 05/10/2020 05:30:00 PM [facility] I31.3 Pericardial effusion (noninflammatory) P ERICARDIAL EFFUSION (NONINFLAMMATORY) Diagnosis 05/10/2020 05:30:00 PM [facility] E87.1 Hypo-osmolality and hyponatremia HYPO-OSMOLALITY AND HYPONATREMIA Diagnosis 05/10/2020 05:30:00 PM [facility] J44.0 Chronic obstructive pulmonar y disease with acute lower respiratory infection CHR OBSTRUCTIVE PULMON DISEASE WITH (ACUTE) LOWER Diagnosis 05/10/2020 05:30:00 PM [facility] Z20.822 CONTACT WITH AND (SUSPECTED) EXPOSURE TO COVID-19 CONTACT WITH AND (SUSPECTED) EXPOSURE TO COVID-19 Diagnosis 05/10/2020 12:22:00 PM [facility] 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 Diagnosis 05/10/2020 12:22:00 PM [facility] R74.02 ELEVATION OF LEVELS OF LACTIC ACID DEHYD ROGENASE [ ELEVATION OF LEVELS OF LACTIC ACID DEHYDROGENASE [ Diagnosis 05/10/2020 12:22:00 PM [facility] E86.1 Hypovolemia HYPOVOLEMIA Diagnosis 05/10/2020 12:22:00 PM [facility] G89.29 [id number] Other chronic pain Problem 06/30/2020 12:00: 00 AM EDT [facility] F17.200 [id number] Current smoker Problem 06/30/2020 12:00:00 A M EDT [facility] I10 Essential hypertension Essential hypertension Problem 06/23/2020 12:00:00 AM EDT [facility] E78.5 [id number] Dyslipidemia Problem 06/23/2020 12:00:00 AM EDT eC1 ([facility]) J43.9 [id number] Pulmonary emphysema, unspecified emphysem a type Problem 06/23/2020 12:00:00 AM EDT eCW1 ([facility]) E03.9 [id number] Hypothyroidism, unspecified type Problem 06/23/2020 12:00:00 AM EDT eCW1 ([facility]) E11.9 [id number] Type 2 diabetes mellitus without complica tions Problem 06/23/2020 12:00:00 AM EDT eC1 ([facility]) Z79.52 [id number] Current chronic use of systemic steroi ds Problem 06/23/2020 12:00:00 AM EDT [facility] F41.8 Anxiety depression Anxiety with depression Problem 06/23/2020 12:00:00 AM EDT [facility] Surgeries/Procedures Procedure Description Date Indications Data Source(s) Assistance with Respiratory Ventilation, Less than 24 Consecutive Hours, Continuous Positive Airway Pressure 06/08/2020 12:00:00 AM [facility] Transfusion of Nonautologous Red Blood C ells into Peripheral Vein, Percutaneous Approach 05/25/2020 12:00:00 AM [facility] Drainage of Bladder with Drainage Device, Via Natural or Art ificial Opening 05/16/2020 12:00:00 AM [facility] Introduction of Analgesics, Hypnotics, S edatives into Subcutaneous Tissue, Percutaneous Approach 05/16/2020 12:00:00 AM [facility] Introduction of Insulin into Subcutaneous Tissue, Percutaneo us Approach 05/10/2020 12:00:00 AM [facility] Introduction of Anti-inflammatory into R espiratory Tract, Via Natural or Artificial Opening 05/10/2020 12:00:00 AM [facility] Muscle Performance Treatment of Musculoskeletal System - Who le Body 05/10/2020 12:00:00 AM [facility] Introduction of Other Therapeutic Substa nce into Peripheral Vein, Percutaneous Approach 05/10/2020 12:00:00 AM [facility] Introduction of Other Anti-infective int o Peripheral Vein, Percutaneous Approach 05/10/2020 12:00:00 AM [facility] Spirometry 12/15/2019 12:00:00 AM JIMENA RODRIGUEZ ([facility], ) Results ID Date Data Source [id number] 11/28/2020 09:18:00 AM EDT [facility] Name Value Range Interpretation Code Description Data Rosa rce(s) Supporting Document(s) SARS-CoV-2 (COVID 19) NEGATIVE - SARS-CoV-2 (COVID19) [facility] This lab was ordered by [facility] a nd reported by [facility]. ID Date Data Source [id number] 11/16/2020 11:12:00 PM EDT [facility] Name Value Range Interpretation Code Description Data Rosa rce(s) Supporting Document(s) SARS coronavirus 2 RNA [Presence] in Res piratory specimen by MIRYAM with probe detection NEGATIVE [facility] This lab was ordered by [facility] a nd reported by [facility]. ID Date Data Source [id number] 11/15/2020 06:35:00 PM EDT [facility] Name Value Range Interpretation Code Description Data Rosa rce(s) Supporting Document(s) SARS coronavirus 2 RNA [Presence] in Res piratory specimen by MIRYAM with probe detection NEGATIVE [facility] This lab was ordered by [facility] a nd reported by [facility]. ID Date Data Source [id number] 11/06/2020 09:28:00 PM EDT [facility] Name Value Range Interpretation Code Description Data Rosa rce(s) Supporting Document(s) SARS-CoV-2 (COVID 19) NEGATIVE - SARS-CoV-2 (COVID19) [facility] This lab was ordered by [facility] a nd reported by [facility]. ID Date Data Source [id number] 11/06/2020 03:54:00 PM EDT [facility] Name Value Range Interpretation Code Description Data Rosa rce(s) Supporting Document(s) SARS-CoV-2 (COVID 19) NEGATIVE - SARS-CoV-2 (COVID19) [facility] This lab was ordered by [facility] a nd reported by [facility]. ID Date Data Source [id number] 11/05/2020 08:28:00 PM EDT [facility] Name Value Range Interpretation Code Description Data Rosa rce(s) Supporting Document(s) SARS coronavirus 2 RNA [Presence] in Res piratory specimen by MIRYAM with probe detection NEGATIVE [facility] This lab was ordered by [facility] a nd reported by [facility]. ID Date Data Source [id number] 10/29/2020 07:58:00 PM EDT [facility] Name Value Range Interpretation Code Description Data Rosa rce(s) Supporting Document(s) SARS coronavirus 2 RNA [Presence] in Res piratory specimen by MIRYAM with probe detection NEGATIVE [facility] This lab was ordered by [facility] a nd reported by [facility]. ID Date Data Source [id number] 10/26/2020 10:19:00 PM EDT [facility] Name Value Range Interpretation Code Description Data Rosa rce(s) Supporting Document(s) SARS coronavirus 2 RNA [Presence] in Res piratory specimen by MIRYAM with probe detection NEGATIVE [facility] This lab was ordered by [facility] a nd reported by [facility]. ID Date Data Source [id number] 10/18/2020 02:44:00 AM EDT [facility] Name Value Range Interpretation Code Description Data Rosa rce(s) Supporting Document(s) SARS-CoV-2 (COVID 19) NEGATIVE - SARS-CoV-2 (COVID19) [facility] This lab was ordered by [facility] a nd reported by [facility]. ID Date Data Source [id number] 10/12/2020 10:15:00 PM EDT [facility] Name Value Range Interpretation Code Description Data Rosa rce(s) Supporting Document(s) SARS coronavirus 2 RNA [Presence] in Res piratory specimen by MIRYAM with probe detection NEGATIVE [facility] This lab was ordered by [facility] a nd reported by [facility]. ID Date Data Source [id number] 10/11/2020 02:34:00 AM EDT [facility] Name Value Range Interpretation Code Description Data Rosa rce(s) Supporting Document(s) SARS coronavirus 2 RNA [Presence] in Res piratory specimen by MIRYAM with probe detection NEGATIVE [facility] This lab was ordered by [facility] a nd reported by [facility]. ID Date Data Source [id number] 10/07/2020 08:36:00 PM EDT [facility] Name Value Range Interpretation Code Description Data Rosa rce(s) Supporting Document(s) SARS-CoV-2 (COVID 19) NEGATIVE - SARS-CoV-2 (COVID19) [facility] This lab was ordered by [facility] a nd reported by [facility]. ID Date Data Source [id number] 10/04/2020 07:47:00 PM EDT [facility] Name Value Range Interpretation Code Description Data Rosa rce(s) Supporting Document(s) SARS coronavirus 2 RNA [Presence] in Res piratory specimen by MIRYAM with probe detection NEGATIVE [facility] This lab was ordered by [facility] a nd reported by [facility]. ID Date Data Source [id number] 10/01/2020 08:07:00 PM EDT [facility] Name Value Range Interpretation Code Description Data Rosa rce(s) Supporting Document(s) SARS coronavirus 2 RNA [Presence] in Res piratory specimen by MIRYAM with probe detection NEGATIVE [facility] This lab was ordered by [facility] a nd reported by [facility]. ID Date Data Source [id number] 09/24/2020 02:20:00 PM EDT [facility] Name Value Range Interpretation Code Description Data Rosa rce(s) Supporting Document(s) SARS coronavirus 2 RNA [Presence] in Res piratory specimen by MIRYAM with probe detection NEGATIVE [facility] This lab was ordered by [facility] a nd reported by [facility]. ID Date Data Source [id number] 09/22/2020 11:07:00 AM EDT [facility] Name Value Range Interpretation Code Description Data Rosa rce(s) Supporting Document(s) SARS-CoV-2 (COVID 19) NEGATIVE - SARS-CoV-2 (COVID19) [facility] This lab was ordered by [facility] a nd reported by [facility]. ID Date Data Source [id number] 09/02/2020 02:38:00 PM EDT [facility] Name Value Range Interpretation Code Description Data Rosa rce(s) Supporting Document(s) SARS-CoV-2 (COVID 19) NEGATIVE - SARS-CoV-2 (COVID19) [facility] This lab was ordered by [facility] a nd reported by [facility]. ID Date Data Source [id number] 08/27/2020 12:00:00 PM EDT [facility] Name Value Range Interpretation Code Description Data Rosa rce(s) Supporting Document(s) SARS coronavirus 2 RNA [Presence] in Res piratory specimen by MIRYAM with probe detection NEGATIVE [facility] This lab was ordered by [facility] a nd reported by [facility]. ID Date Data Source [id number] 08/23/2020 01:29:00 PM EDT [facility] Name Value Range Interpretation Code Description Data Rosa rce(s) Supporting Document(s) SARS-CoV-2 (COVID 19) NEGATIVE - SARS-CoV-2 (COVID19) [facility] This lab was ordered by [facility] a nd reported by [facility]. ID Date Data Source [id number] 08/17/2020 06:30:00 PM EDT [facility] Name Value Range Interpretation Code Description Data Rosa rce(s) Supporting Document(s) SARS coronavirus 2 RNA [Presence] in Res piratory specimen by MIRYAM with probe detection NEGATIVE [facility] This lab was ordered by [facility] a nd reported by [facility]. ID Date Data Source [id number] 08/13/2020 01:19:00 AM EDT [facility] Name Value Range Interpretation Code Description Data Rosa rce(s) Supporting Document(s) SARS coronavirus 2 RNA [Presence] in Res piratory specimen by MIRYAM with probe detection NEGATIVE [facility] This lab was ordered by [facility] a nd reported by [facility]. ID Date Data Source [id number] 06/14/2020 04:54:00 PM EDT [facility] Patient: ELA PONCEatio jayjay Report - [facility].VisitID: [id number] [place] [address] [phone], FRegistration Date/Time: 05/10/2020 11:01 Weight:52.1 kg (E). Height/Length:62 inches (E). BMI:21 PAST HISTORYProblems:Diabetes Mellitus.COPD - Chronic Obstructive Pulmonary Disease.Constipation.Pneumonia.Lung Disease.Hypertension. 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 FAMILY HISTORYNegative. No significant family medical history. (Electronically signed by Sebastian Kingston 05/10/2020 18:30) Name Value Range Interpretation Code Description Data Rosa rce(s) Supporting Document(s) ID Date Data Source [id number] 06/14/2020 03:44:00 PM EDT [facility] Name Value Range Interpretation Code Description Data Rosa rce(s) Supporting Document(s) SARS-CoV-2 (COVID 19) NEGATIVE - SARS-CoV-2 (COVID19) [facility] This lab was ordered by [facility] a nd reported by [facility]. ID Date Data Source [id number] 06/12/2020 11:27:00 AM EDT [address] [id number] NOTE FOLLOW UPPATIENT NAME: KRISELASALLY VIVAR PHYSICIAN: MICHAEL WANG MDAUTHOR: Selma Caballero. DATE: 05/18/20 MR#: [id number] NOTE DATE: 06/12/20 RM#: [id number] TIME: 1127 : 45Progress Note Follow UpSummaryPrescription filled and family and patient's request for Plavix 75 mg p.o.daily levothyroxine 75 mcg p.o. daily hydroxyzine 10 mg 3 times daily as neededfor anxiety. Lisinopril was not filled at the family's request due to renaldysfunction and hyperkalemia. I called and spoke with the pharmacist aboutthis personally at [facility] and this order is being canceled.DATE SIGNED: 06/12/20 Electronically SignedTIME SIGNED: 1127 CR FAJARDO Name Value Range Interpretation Code Description Data Rosa rce(s) Supporting Document(s) ID Date Data Source [id number] 06/11/2020 07:45:00 PM EDT [address] [id number] SUMMARYPATIENT NAME: ELA PONCE MR#: [id number] PHYSICIAN: MICHAEL WANG MDAUTHOR: [place] Denis DO DATE: 05/18/20 RM#: [id number] DATE: 06/11/20 : 45Summary of HospitalizationReason for AdmissionTransfer [facility] for MRIHospital CoursePatient is 74 years old female with past medical history significant for COPD,spinal stenosis, anxiety/depression, dyslipidemia, type 2 diabetes, nicotinedependence, hypothyroidism, CKD, peripheral vascular disease and nicotinedependence who was initially admitted at [facility] for sepsis treatmentsecondary to pneumonia. Patient had extreme deconditioning, unsteady gait andfrequent falls. Patient was noted to have severe tenderness over lumbar andthoracic spine in kassidy setting of worsening CRP and leukocytosis. [facility] for MRI to rule out discitis.Upon arrival at the [facility], patient refused MRI andpatient was brought back to [facility]. At [facility], patient becameagitated and combative and patient was given B52. Patient was found to have UTIwith suspision of pylonephritis. Patient started on vanco/zosyn. Patient wastransfer[facility]. Patient continued on broad spectrum antibiotics whilewaiting for cultures. Attempts of MRI were not successful due to frequentagitation. MRI later was performed and demonstrated no evidence of discitis.Patient's worsening pain was likely due to subacute vertevral body fracture.MRSA screening was negative. Vanco was discontinued. CRP continuesdowntrending. Blood cultures came back negative. Patient was planned fordischarging back to [facility] to continue short-term rehab. However, therewas no [...] was transfusedafter obtaining consent. [facility]uing [facility] bedas per patient's wish. [...] her son agreed for subacute rehab facility [facility] or [facility] if it is available. Case management had sent outreferrals to broaden the search. Unfortunately, patient became unhappy on 06/11/2020 with regarding to her hospitalization stay. Patient contracted her son kinza to [facility] and bring her home. Risks and benefits of AMA explained explicitl yto patient and her son. They voiced understandings of the risks and benefitsbut they insisted on signing out AMA.Decision was made to initially transfer patient to [facility] for an MRI to be doneto rule out discitis and then [facility] patient refused the MRI and patient was broughtback to [facility]. At [facility] patient became agitated and somewhatcombative sustained ecchymosis in bilateral upper extremities. Patient had momo given B-52. Decision was made to transfer patient to [facility] for furthermanagement. In route to [facility] again for the second time patient becameagitated. At [facility] patient was also found to have UTI, CT of theabdomen and pelvis showed some questionable/possible pyelonephritis. Patientwas given vancomycin and Zosyn at [facility] and transferred to [facility].When I evaluated patient patient was completely [...] or herniation at the L1-2 level. The T5bvarmi exit the neural foramina without compression.A diffuse [...] CompleteAdult Echocardiogram ReportName: ELA PONCE BStudy Date: 06/08/20201969SQF20GUK: 1945 Gender: FemaleAge: 74 yrs Weight: 119 [...] Fall8. Chronic obstructive pulmonary disease with hypoxia9. Dymsksilpq11. Hcqzjfc41. Anemia of chronic ikoubqk08. Rdpnnqbglwu58. HypothyroidismDiagnoses (Other)Past Pertinent History1. Diabetes2. Chronic obstructive pulmonary disease with hypoxia3. Depression4. Spinal stenosis5. Anxiety6. Anemia of chronic disease7. Hypothyroidism8. PVD (peripheral vascular disease)9. Kbqhmzwp67. Chronic anemiaPatient's Discharge ConditionVital SignsVital Signs-LastResult Date [...] taking the following medications:PredniSONE (PREDNISONE) 10 MG CXBPWM68 MILLIGRAM Orally DAILYReferralsOrdered ReferralsMARY [facility] First available [id number] [place] [address] START NEW SERVICES OF SN, PT, METHODS EXAMINER.Time spent by provider to complete discharge > 30 minutesDATE SIGNED: 06/11/20 Electronically SignedTIME SIGNED: 2126 GEORGIA DENIS DO Name Value Range Interpretation Code Description Data Rosa rce(s) Supporting Document(s) ID Date Data Source [id number] 06/11/2020 06:31:00 PM EDT [facility] Name Value Range Interpretation Code Description Data Rosa rce(s) Supporting Document(s) GLU 128 mg/dL 70-110 [facility] Patients taking Sulfasalazine may have f alsely depressedGlucose levels. Patients taking Sulfapyridine may havefalsely elevated Glucose levels. Patients should be drawnfor Glucose before the initial administration of eitherdrug. BUN 74 mg/dL 7-23 [facility] CRE 2.170 mg/dL 0.500-1.300 [facility] GFR 24 mL/min [facility] CHLORIDE 108 mmol/L 99-110 [facility] NA 142 mmol/L 136-147 [facility] POTASSIUM 5.5 mmol/L 3.5-5.1 [facility] TCO2 24 mmol/L 20-33 [facility] ANION GAP 15.5 10.0-20.0 [facility] [place] 8.3 mg/dL 8.3-10.7 [facility] ID Date Data Source [id number] 06/11/2020 04:59:00 PM EDT [facility] Name Value Range Interpretation Code Description Data Rosa rce(s) Supporting Document(s) FGLU 139 mg/dL 70-110 [facility] ID Date Data Source [id number] 06/11/2020 12:28:00 PM EDT [address] [id number] NOTEPATIENT NAME: ALFREDO PONCENCHE BATTENKEIKO PHYSICIAN: MICHAEL WANG MDAUTHOR: Shankar Denis DO. DATE: 05/18/20 MR#: [id number] NOTE DATE: 06/11/20 RM#: [id number] TIME: 1535 : 45SubjectiveEvents Since Last EntryPatient seen and examined in room today. Patient denies acute complaints.Patient is currently on 3 L nasal cannula, and patient denies any difficultybreathing. Patient does admit that she has not been drinking enough fluid likeshe did few days ago. Denies any fever or chill.ObjectiveVital SignsVital Signs-24 HRS06/10432776 1729 2023 2138 2200Temp 98.7 99.2 98.5Pulse 69 74 77Resp 13 16B/P 125/55 137/50 130/88B/P MeanPulse Ox 96 95O2 Delivery Nasal cannulaO2 Flow Rate 5IHsT71406/11000 0200 0400 0631 0804Temp 97.9 97.9 98.5 97.9Pulse 74 74Resp 17B/P 163/72 163/72B/P MeanPulse Ox 95O2 Delivery Nasal cannulaO2 Flow Rate 9JCiT72406/11772806 6186 0924 0942Temp 97.7Pulse 74 72Resp 20B/P 163/72 163/72 150/63B/P MeanPulse Ox 94O2 Delivery Nasal cannula Nasal cannulaO2 Flow Rate 3L 6SNmN6Atphep/OutputIntake/Output Summary 24 hours06/10 1900 06/11 0700Intake Total [...] evaluatePsych/Mental Status unable to evaluateResultsLaboratory DataRecent Labs-24 hours06/10697635 0561 0756 1104ChemistrySodium (136 - 147 mmol/L) 139 [...] 0.1Abs Immat Gran (auto) (0.0 - 0.1 0.48u25I5/uL)Absolute Neuts (auto) (1.2 - 7.6 11.62 Hx10E3/uL)Absolute Lymphs (auto) (1.0 - 3.5 0.27 Lx10E3/uL)Absolute Monos (auto) (0.1 - 1.0 0.09t19P9/uL)Absolute Eos (auto) (0.1 - 0.7 x10E3/uL) 0.00 LAbsolute Basos (auto) (0.0 - 0.1 0.87s94F9/uL)Nucleated RBC % (auto) (0 %) 0Assessment/PlanProblem List1. [...] shortly after the event. Patient landed on [place]. Patient denied hitting her head.- CT head [...] is available in the future.Discussed with Mr. Barden, over the phone on 06/11/2020 with regarding to patient'srespiratory improvement and patient's need for medication adjustment s.Barrier for discharge: Optimizing renal function. Adjustment of steroid andlevemir.Resuscitation status Full codeProlong Service Time* 30 minutes of prolong nxfi-zs-lxcd time spent with patient's son, Mr. Braden.* Discussed: Currently medical management and discharge planning.VTE ProphylaxisVTE Prophylaxis: Continue heparin.DATE SIGNED: 06/11/20 Electronically SignedTIME SIGNED: 2126 GEORGIA DENIS DO Name Value Range Interpretation Code Description Data Rosa rce(s) Supporting Document(s) ID Date Data Source [id number] 06/11/2020 11:09:00 AM EDT [facility] Name Value Range Interpretation Code Description Data Rosa rce(s) Supporting Document(s) FGLU 256 mg/dL 70-110 [facility] ID Date Data Source [id number] 06/11/2020 08:25:00 AM EDT [facility] Name Value Range Interpretation Code Description Data Rosa rce(s) Supporting Document(s) FGLU 384 mg/dL 70-110 [facility] ID Date Data Source [id number] 06/11/2020 05:53:00 AM EDT [facility] Name Value Range Interpretation Code Description Data Rosa rce(s) Supporting Document(s) GLU 250 mg/dL 70-110 [facility] Patients taking Sulfasalazine may have f alsely depressedGlucose levels. Patients taking Sulfapyridine may havefalsely elevated Glucose levels. Patients should be drawnfor Glucose before the initial administration of eitherdrug. BUN 68 mg/dL 7-23 [facility] CRE 1.860 mg/dL 0.500-1.300 [facility] GFR 28 mL/min [facility] CHLORIDE 106 mmol/L 99-110 [facility] NA 140 mmol/L 136-147 [facility] POTASSIUM 5.2 mmol/L 3.5-5.1 [facility] TCO2 26 mmol/L 20-33 [facility] ANION GAP 13.2 10.0-20.0 [facility] [place] 8.2 mg/dL 8.3-10.7 [facility] ID Date Data Source [id number] 06/11/2020 05:47:00 AM EDT [facility] Name Value Range Interpretation Code Description Data Rosa rce(s) Supporting Document(s) WBC 12.30 x10E3/uL 4.0-10.5 [facility] RBC 3.57 x10E6/uL 4.20-5.40 [facility] Hemoglobin 10.8 g/dL 12.0-16.0 [facility] Hematocrit 34.1 % 37.0-47.0 [facility] MCV 95.5 fL 81.0-99.0 [facility] MCH 30.3 pg 27.0-31.0 [facility] MCHC 31.7 g/dL 32.7-35.6 [facility] RDW 17.2 % 11.5-14.0 [facility] Platelet count 220 x10E3/uL 150-450 [facility] ital MPV 9.8 fl 6.9-9.5 [facility] Neutrophils 94.5 % 34-64 [facility] Lymphocytes 2.2 % 25-45 [facility] Monocytes 2.4 % 1.7-10.6 [facility] Eosinophils 0 % 0.4-7.0 [facility] Basophils 0.1 % 0.1-2.0 [facility] Imm. Gran. 0.8 % 0.1-2.0 [facility] Abs. Neutro. 11.62 x10E3/uL 1.2-7.6 [facility] Abs. Lymph. 0.27 x10E3/uL 1.0-3.5 [facility] Abs. Mobile. 0.30 x10E3/uL 0.1-1.0 [facility] Abs. Eosin. 0.00 x10E3/uL 0.1-0.7 [facility] Abs. Baso. 0.01 x10E3/uL 0.0-0.1 [facility] Abs. Imm. Gran. 0.10 x10E3/uL 0.0-0.1 N [facility] spital ANRBC% 0 % 0 [facility] DIFFERENTIAL CONFIRMED BY SLIDE REVIEW. ID Date Data Source [id number] 06/11/2020 01:54:00 AM EDT [facility] Patient: ELA PONCE Observatio n Report - [facility].VisitID: [id number] [place] [address] [phone], FRegistradelaware psychiatric center Date/Time: 05/18/2020 13:00 Weight:52.1 [...] Name Value Range Interpretation Code Description [facility] Supporting Document(s) ID Date Data Source [id number] 06/10/2020 08:18:00 PM EDT [facility] Name Value Range Interpretation Code Description Data [facility] Supporting Document(s) GLU 313 mg/dL 70-110 [facility] Patients taking Sulfasalazine may have f alsely depressedGlucose levels. Patients taking Sulfapyridine may havefalsely elevated Glucose levels. Patients should be drawnfor Glucose before the initial administration of eitherdrug. BUN 65 mg/dL 7-23 [facility] CRE 2.010 mg/dL 0.500-1.300 [facility] GFR 26 mL/min [facility] CHLORIDE 105 mmol/L 99-110 [facility] NA 139 mmol/L 136-147 [facility] POTASSIUM 5.4 mmol/L 3.5-5.1 [facility] TCO2 26 mmol/L 20-33 [facility] ANION GAP 13.4 10.0-20.0 [facility] CA 8.0 mg/dL 8.3-10.7 [facility] ID Date Data Source [id number] 06/10/2020 10:25:00 AM EDT [address] [id number] NOTEPATIENT NAME: ELA PONCE PHYSICIAN: MICHAEL WANG MDAUTHOR: Brendan Shankar. DATE: 05/18/20 MR#: [id number] NOTE DATE: 06/10/20 RM#: [id number] TIME: 1114 [...] MeanPulse Ox 91 95 93O2 DeliveryO2 Flow CfmtRlD26706/[id number] 9919 1999 2015 2200Temp 99.7Pulse 74 73 70 72 73Resp 14 20 13 16B/P 122/44 121/50 128/30 128/30 119/64B/P MeanPulse Ox 94 94 95 94O2 DeliveryO2 Flow GncvYaD234/30 06/09 06/10 06/10 05/068967 5025 0000 0000 0200Temp 98.4 98.8Pulse 68 72Resp 13 13B/P 130/51 136/56B/P MeanPulse Ox 93 87O2 Delivery Nasal cannulaO2 Flow Rate 6SEjO652/01 06/10625970 8018 0400 0600 0600Temp 97.9 98.3 98.3Pulse 69 72Resp 13 16B/P 142/121 131/58B/P MeanPulse Ox 93 97O2 DeliveryO2 Flow XhztIiZ365/06/10 [id number] 6075 0816 0818 09 03Temp 97.5Pulse 69 72 72Resp 17B/P 134/57 136/72 136/72 136/72B/P MeanPulse Ox 93O2 Delivery Nasal cannulaO2 Flow Rate 1NJnC1Fskocx/OutputIntake/Output Summary 24 hours04/30 1900 05/01 0700Intake Total [...] evaluatePsych/Mental Status unable to evaluateResultsLaboratory DataRecent Labs-24 hours848307EtffztajfZeiqkk (136 - 147 mmol/L) 138Potassium (3.5 - [...] shortly after the event. Patient landed on [place]. Patient denied hitting her head.- CT head [...] rce(s) Supporting Document(s) ID Date Data Source [id number] 06/10/2020 06:29:00 AM EDT [facility] Name Value Range Interpretation Code Description Data Rosa rce(s) Supporting Document(s) GLU 326 mg/dL 70-110 [facility] Patients taking Sulfasalazine may have f alsely depressedGlucose levels. Patients taking Sulfapyridine may havefalsely elevated Glucose levels. Patients should be drawnfor Glucose before the initial administration of eitherdrug. BUN 54 mg/dL 7-23 [facility] CRE 1.900 mg/dL 0.500-1.300 [facility] GFR 27 mL/min [facility] CHLORIDE 102 mmol/L 99-110 [facility] NA 138 mmol/L 136-147 [facility] POTASSIUM 4.7 mmol/L 3.5-5.1 [facility] TCO2 29 mmol/L 20-33 [facility] ANION GAP 11.7 10.0-20.0 [facility] CA 8.1 mg/dL 8.3-10.7 [facility] ID Date Data Source [id number] 06/10/2020 06:13:00 AM EDT [facility] Name Value Range Interpretation Code Description Data Rosa rce(s) Supporting Document(s) WBC 10.40 x10E3/uL 4.0-10.5 [facility] RBC 3.28 x10E6/uL 4.20-5.40 [facility] Hemoglobin 9.9 g/dL 12.0-16.0 [facility] Hematocrit 31.3 % 37.0-47.0 [facility] MCV 95.4 fL 81.0-99.0 [facility] MCH 30.2 pg 27.0-31.0 [facility] MCHC 31.6 g/dL 32.7-35.6 [facility] RDW 17.4 % 11.5-14.0 [facility] Platelet count 200 x10E3/uL 150-450 [facility] ital MPV 10.0 fl 6.9-9.5 [facility] Neutrophils 96.1 % 34-64 [facility] Lymphocytes 2.7 % 25-45 [facility] Monocytes 0.7 % 1.7-10.6 [facility] Eosinophils 0 % 0.4-7.0 [facility] Basophils 0 % 0.1-2.0 L [facility] Imm. Gran. 0.5 % 0.1-2.0 N [facility] Abs. Neutro. 10.00 x10E3/uL 1.2-7.6 [facility] Abs. Lymph. 0.28 x10E3/uL 1.0-3.5 [facility] Abs. Mobile. 0.07 x10E3/uL 0.1-1.0 [facility] Abs. Eosin. 0.00 x10E3/uL 0.1-0.7 [facility] Abs. Baso. 0.00 x10E3/uL 0.0-0.1 [facility] Abs. Imm. Gran. 0.05 x10E3/uL 0.0-0.1 [facility] ANRBC% 0 % 0 [facility] DIFFERENTIAL CONFIRMED BY SLIDE REVIEW. ID Date Data Source [id number] 06/09/2020 04:31:00 PM EDT [facility] Exam Number: [id number] Echocardiogr am ReportName: ELA PONCE BStudy Date: 06/08/20203784PNA52IOI: 1945 Gender: FemaleAge: 74 yrs Weight: 119 [...] with elevated RA pressure.Report electronically signed in [facility] by: Fang Obrien MD, MPH,FACC on 06/08/2020 05:35 PM Reported By: - FANG OBRIEN MD Signed By: FANG OBRIEN MD Name Value Range Interpretation Code Description Data Rosa rce(s) Supporting Document(s) ID Date Data Source [id number] 06/09/2020 01:00:00 PM EDT [address] [id number] NOTEPATIENT NAME: ELA PONCE PHYSICIAN: MICHAEL WANG MDAUTHOR: Shankar Denis DO. DATE: 05/18/20 MR#: [id number] NOTE DATE: 06/09/20 RM#: [id number] TIME: 1359 : 45SubjectiveEvents Since Last EntryPatient seen and examined in room today. Patient denies acute complaint.Patient requires less oxygen support. Patient responds very well withdiuretic.ObjectiveVital SignsVital Signs-24 HRS06/08 1600 1800 1810 2000Temp 97.5 98.5Pulse 70 69 71 76Resp 16 14 14 14B/P 140/54 126/77 131/55 137/53B/P MeanPulse Ox 94 95 93 95O2 Delivery Nasal cannulaO2 Flow Rate 8QtR08906/08000 2009 2118 2199 2200Temp 98.9Pulse 79 73 74Resp 30 13B/P 137/53 124/82 145/57B/P MeanPulse Ox 96 94O2 Delivery Nasal cannulaO2 Flow Rate 5EMhG32806/09527347 9414 0200 0200 0400Temp 97.9 98.7Pulse 69 72 78Resp 14 13 11B/P 126/45 137/51 144/58B/P MeanPulse Ox 90 93 90O2 DeliveryO2 Flow GedvCkT32406/09390220 8099 0600 0800 0827Temp 97.8 97.3 99.1Pulse 80 88Resp 11 18B/P 157/63 156/56 142/52B/P MeanPulse Ox 92 93O2 DeliveryO2 Flow GcinNpK26406/09/296836 3553 0829TempPulse 82 82RespB/P 142/52 142/52 142/52B/P MeanPulse OxO2 DeliveryO2 Flow UlrxHzS2Iujqho/OutputIntake/Output Summary 24 hours06/08 1900 06/09 0700Intake Total [...] shortly after the event. Patient landed on [place]. Patient denied hitting her head.- CT head [...] codeProlong Service Time* 30 minutes of prolong rwrb-qs-lijo time spent with Patient, patient's son andcase manager merchandising.* Discussed: discharge planning.VTE Proph ylaxisVTE Prophylaxis: Continue heparin.DATE SIGNED: 06/11/20 Electronically SignedTIME SIGNED: 2126 GEORGIA DENIS DO Name Value Range Interpretation Code Description Data Rosa rce(s) Supporting Document(s) ID Date Data Source [id number] 06/09/2020 08:02:00 AM EDT [facility] Name Value Range Interpretation Code Description Data Rosa rce(s) Supporting Document(s) WBC 4.59 x10E3/uL 4.0-10.5 [facility] RBC 3.22 x10E6/uL 4.20-5.40 [facility] Hemoglobin 9.8 g/dL 12.0-16.0 [facility] Hematocrit 30.8 % 37.0-47.0 [facility] MCV 95.7 fL 81.0-99.0 [facility] MCH 30.4 pg 27.0-31.0 [facility] MCHC 31.8 g/dL 32.7-35.6 [facility] RDW 17.5 % 11.5-14.0 [facility] Platelet count 185 x10E3/uL 150-450 N [facility] ital MPV 10.1 fl 6.9-9.5 [facility] SEG. NEUTROPHIL 93 % 34-64 [facility] BAND 0 % 5-11 [facility] LYMPHOCYTE 7 % 25-45 [facility] EOSINOPHILS 0 % 0-7 [facility] MONOCYTES 0 % 2-10 [facility] BASOPHILS 0 % 0-2 [facility] ATYPICAL LYMPHS 0 % 0-10 N [facility] al METAMYELOCYTES 0 % 0-2 [facility] MYELOC[facility]TES 0 % 0-2 [facility] PROMYELOCYTES 0 % 0-1 [facility] BLAST CELLS 0 % 0-1 [facility] NUCLEATED RBC'S 0 0 N [facility] al PLATELET MORPH 1+ PLT SIZE VARIES N [facility] PLATELET MORPHOLOGY EXPECTED RESULT:NORM AL = NO REMARKABLE MORPHOLOGYAny findings other than Normal will be reported and areconsidered Abnormal. The significance of Abnormal findingsare to be clinically correlated by the provider. ID Date Data Source [id number] 06/09/2020 07:55:00 AM EDT [facility] Name Value Range Interpretation Code Description Data Rosa rce(s) Supporting Document(s) GLU 305 mg/dL 70-110 [facility] Patients taking Sulfasalazine may have f alsely depressedGlucose levels. Patients taking Sulfapyridine may havefalsely elevated Glucose levels. Patients should be drawnfor Glucose before the initial administration of eitherdrug. BUN 34 mg/dL 7-23 [facility] CRE 1.220 mg/dL 0.500-1.300 [facility] GFR 46 mL/min [facility] CHLORIDE 105 mmol/L 99-110 [facility] NA 142 mmol/L 136-147 [facility] POTASSIUM 5.2 mmol/L 3.5-5.1 [facility] TCO2 28 mmol/L 20-33 [facility] ANION GAP 14.2 10.0-20.0 [facility] CA 8.0 mg/dL 8.3-10.7 [facility] ID Date Data Source [id number] 06/08/2020 10:58:00 AM EDT [address] [id number] NOTEPATIENT NAME: ELA PONCE PHYSICIAN: MICHAEL WANG MDAUTHOR: Shankar Denis DO. DATE: 05/18/20 MR#: [id number] NOTE DATE: 06/08/20 RM#: [id number] TIME: 1340 : 45SubjectiveEvents Since Last EntryPatient seen and examined in the room today. Currently patient's oxygenation ismaintained with 6L NC. Patient's mentation is improving. Patient is complainingabout her chronic back pain. No recurrence of hypoglycemia. Patient stated shehad similar episode at home.ObjectiveVital SignsVital Signs-24 HRS06/07913273 9279 1800 1999 2001Temp 97.8 97.2 96.8 98.7Pulse 75 95 62 68Resp 20 24 13 16B/P 119/90 119/56 115/48 142/61B/P MeanPulse Ox 93 95 95 90 91O2 Delivery Nasal cannula BiPAPO2 Flow Rate 4L 3AZoQ42506/07040 2201 0000 0200 02 00Temp 98.4Pulse 66 67 74 68Resp 13 21 13B/P 138/52 118/45 145/61 148/54B/P MeanPulse Ox 92 87 88O2 DeliveryO2 Flow CjzcKyQ41506/08116041 9260 0615 0800 0819Temp 98.4 98.2Pulse 80 79Resp 21 16B/P 154/60 127/90 136/64B/P MeanPulse Ox 85 94O2 DeliveryO2 Flow HnrrEtO47306/08563227 1186 0823 0919TempPulse 88 88RespB/P 136/64 136/64 136/64B/P MeanPulse OxO2 Delivery Nasal cannulaO2 Flow Rate 2AfH0Jmqxqs/OutputIntake/Output Summary 24 hours06/07 1900 06/08 0700Intake Total [...] oriented x 3Psych/Mental Status anxiousResultsLaboratory DataRecent Labs-24 hours06/07614766 1053 1736Blood GasABG pH (7.360 - 7.440) 7.406ABG [...] 12.0C-Reactive Protein (0.00 - 0.49 mg/dL) 5.97 SJwr-X-Zoizgbwnxkz Pept (0 - 125 pg/mL) 5531 HTotal [...] % (auto) (0 %) 0RBC Morphology 1+ QTSMTILDMCOR9306/076 1736 1758Blood GasABG pH CancelledABG pCO2 CancelledABG [...] ClearUrine pH (5.0 - 8.0) 5.5Ur Specific [place] (1.010 - 1.025) 1.012Urine Protein (Negative) 3+Urine Ketones (NEGATIVE) NegativeUrine Blood (NEGATIVE) NegativeUrine Nitrite (Negative) NegativeUr Bilirubin Confirm (NEGATIVE) NegativeUrine Urobilinogen (0.2 - 1.0 mg/dL) 0.2Urine Leukocytes (Negative) NegativeUrine RBC (NONE SEEN) 0-2 RBCs/HPFUrine WBC (NONE SEEN) 0-2 WBCs/HPFUrine Bacteria (NONE SEEN) FewUrine Casts (NONE SEEN) FEW GRANULAR/LPFFEW HYALINE/LPFUrine Mucus (NONE SEEN) FewUrine Glucose (NEGATIVE) Ceamrzzp05/295312PpnnoccajJfclbz (136 - 147 mmol/L) 144Potassium (3.5 - [...] the patient.Advance Care Planning* 20 minutes of qepu-zn-zsul time spent for Advance Care Planning inexplanation/discussion of Advance Directives.* Following people are present during the meeting: Patient and her son in ICU.* Decisions reached: Full code.Prolong Service Time* 30 minutes of prolong qeyt-ou-irlr time spent with Patient, Patient's son,case management.* Discussed: Subacute rehab. Transition to group home if patient fails rehab.Consider rehab facility in [place], [facility] and [facility].VTE ProphylaxisVTE Prophylaxis: Continue heparin.DATE SIGNED: 06/11/20 Electronically SignedTIME SIGNED: 2126 GEORGIA DENIS DO Name Value Range Interpretation Code Description Data Rosa rce(s) Supporting Document(s) ID Date Data Source [id number] 06/08/2020 06:05:00 AM EDT [facility] Name Value Range Interpretation Code Description Data Rosa rce(s) Supporting Document(s) WBC 6.77 x10E3/uL 4.0-10.5 N [facility] RBC 3.38 x10E6/uL 4.20-5.40 L [facility] Hemoglobin 10.2 g/dL 12.0-16.0 L [facility] Hematocrit 32.0 % 37.0-47.0 [facility] MCV 94.7 fL 81.0-99.0 [facility] MCH 30.2 pg 27.0-31.0 [facility] MCHC 31.9 g/dL 32.7-35.6 L [facility] RDW 17.5 % 11.5-14.0 H [facility] Platelet count 170 x10E3/uL 150-450 N [facility] ital MPV 9.7 fl 6.9-9.5 H [facility] Neutrophils 82.7 % 34-64 H [facility] Lymphocytes 6.4 % 25-45 L [facility] Monocytes 9.2 % 1.7-10.6 N [facility] Eosinophils 1.3 % 0.4-7.0 [facility] Basophils 0.1 % 0.1-2.0 [facility] Imm. Gran. 0.3 % 0.1-2.0 [facility] Abs. Neutro. 5.60 x10E3/uL 1.2-7.6 [facility] Abs. Lymph. 0.43 x10E3/uL 1.0-3.5 [facility] Abs. Mobile. 0.62 x10E3/uL 0.1-1.0 [facility] Abs. Eosin. 0.09 x10E3/uL 0.1-0.7 [facility] Abs. Baso. 0.01 x10E3/uL 0.0-0.1 [facility] Abs. Imm. Gran. 0.02 x10E3/uL 0.0-0.1 N [facility] spital ANRBC% 0 % 0 [facility] DIFFERENTIAL CONFIRMED BY SLIDE REVIEW. ID Date Data Source [id number] 06/08/2020 06:03:00 AM EDT [facility] Name Value Range Interpretation Code Description Data Rosa rce(s) Supporting Document(s) MAGNESIUM 1.8 mg/dL 1.6-2.6 N [facility] ID Date Data Source [id number] 06/08/2020 06:03:00 AM EDT [facility] Name Value Range Interpretation Code Description Data Rosa rce(s) Supporting Document(s) GLU 141 mg/dL 70-110 [facility] Patients taking Sulfasalazine may have f alsely depressedGlucose levels. Patients taking Sulfapyridine may havefalsely elevated Glucose levels. Patients should be drawnfor Glucose before the initial administration of eitherdrug. BUN 30 mg/dL 7-23 H [facility] CRE 0.913 mg/dL 0.500-1.300 [facility] GFR > 60 mL/min [facility] CHLORIDE 108 mmol/L 99-110 [facility] NA 144 mmol/L 136-147 [facility] POTASSIUM 4.5 mmol/L 3.5-5.1 [facility] TCO2 30 mmol/L 20-33 [facility] ANION GAP 10.5 10.0-20.0 [facility] [place] 8.1 mg/dL 8.3-10.7 L [facility] ID Date Data Source [id number] 06/08/2020 12:43:00 AM EDT [place], [place] [address]CROSS COVERAGE PROGRESS NOTEPATIENT NAME: ELA PONCE PHYSICIAN: MICHAEL WANG MDAUTHOR: David GA,S. : 45ADM. DATE: 05/18/20 MR#: [id number] NOTE DATE: 06/08/20 RM#: [id number] TIME: 46 HistoryNOCTURNALIST CROSS COVERAGE NOTEThis is a 74-year-old female with a known past medical history ofCOPD, diabetes, hypertension, spinal stenosis initially transferred [facility] on May 18, 2020 for persistent [...] for active diuresis.@ 8:36 pm-was notified by PROGRAM PLANNER that patient capillary blood glucose was 77and [...] till morning when her son (Doni from [place], [place]) arrives to changeher CODE STATUS to [...] Ox 92O2 Delivery Nasal cannulaO2 Flow Rate 2TLcJ89906/07015 1022 1424 1638 1800Temp 98.7 97.8 97.2 96.8Pulse 80 75 95 62Resp 22 20 24 13B/P 119/88 119/90 119/56 115/48B/P MeanPulse Ox 94 93 95 95O2 Delivery Nasal cannula Nasal cannula BiPAPO2 Flow Rate 3L 4L 4MOjC32706/07031927 2788 204 2201Temp 98.7Pulse 68 66 67Resp 16 13B/P 142/61 138/52 118/45B/P MeanPulse Ox 90 91 92O2 DeliveryO2 Flow KotqUeD4Wuobju/OutputIntake/Output Summary 24 hours06/07 1900 06/08 0700Intake TotalOutput [...] patient, son (Doni (via telephone))Case discussed with PROGRAM PLANNER- KateCritical Care Time* Based on my evaluation, the patient has the above life-threateningconditions.* I have personally provided [35 ] minutes of critical care time exclusive ofbillable procedures caring for the patient.Advance Care Planning* [14 ] minutes of tvav-fn-drfj time spent for Advance Care Planning inexplanation/discussion of Advance Directives.* Decisions reached: [ PATIENT WOULD LIKE TO RESCIND CURRENT MOLST FORM TO DNR/DNI- HOWEVER WILL WAIT FOR HER SON TO ARRIVE THIS MORNING].VTE ProphylaxisVTE Prophylaxis: [ heparin sq].DATE SIGNED: 06/08/20 Electronically SignedTIME SIGNED: 730 JAMIR ALLEN MD Name Value Range Interpretation Code Description Data Rosa rce(s) Supporting Document(s) ID Date Data Source [id number] 06/07/2020 09:13:00 PM EDT [facility] O2 % or Liter Flow: 4L Name Value Range Interpretation Code Description Data Rosa rce(s) Supporting Document(s) PO2 53.9 mmHg 80-100 [facility] PCO2 40.8 mmHg 35-50 [facility] PH 7.447 7.360-7.440 [facility] HCO3(ABG) 27.5 mmol/L 20-33 [facility] %SATO2 88.3 % 95-100 [facility] BASE EXCESS 3.2 mmol/L -3 TO +3 [facility] DEVICE/FIO2 4L [facility] tHb 10.8 g/dL 12-18 [facility] FO2Hb 87.6 % 94.0-97.0 [facility] FMETHb 0.5 % 0.0-1.5 [facility] CO 0.3 % [facility] CARBOXYHEMOGLOBIN INTERPRET ATION % TOTAL HEMOGLOBIN NONSMOKER: <2% AVERAGE SMOKER: 4-5% 1-2 PACKS/DAY HEAVY SMOKER 8-12% >2 PACKS/DAY POTENTIALLY TOXIC: >15% ID Date Data Source [id number] 06/08/2020 01:48:00 PM EDT [address] [address]PNTQCHUL NOTEPATIENT NAME: ELA PONCE BATTENKEIKO PHYSICIAN: MICHAEL WANG MDAUTHOR: Shankar Denis DO. DATE: 05/18/20 MR#: [id number] NOTE DATE: 06/07/20 RM#: [id number] TIME: 1415 [...] Delivery Nasal cannula BiPAPO2 Flow Rate 4L 0OSeS63306/07040 2201 0000 0200 0200Temp 98.4Pulse 66 67 74 68Resp 13 21 13B/P 138/52 118/45 145/61 148/54B/P MeanPulse Ox 92 87 88O2 DeliveryO2 Flow CylzBwU49206/08400 0400 0615 0630 0645Temp 98.4Pulse 80 79 83 81Resp 21 16 18 15B/P 154/60 127/90 162/61 146/56B/P MeanPulse Ox 85 94 91 94O2 DeliveryO2 Flow YuhpLoM88906/08700 0700 0715 0730 0745TempPulse 87 79 78 86Resp 16 16 15 17B/P 174/60 139/51 135/54 161/64B/P MeanPulse Ox 89 94 94 92O2 DeliveryO2 Flow WzkdGlR50806/08800 0815 0815 0819 0820Temp 98.2Pulse 87Resp 23B/P 136/64 136/64 136/64B/P MeanPulse Ox 93O2 DeliveryO2 Flow EcsqQrL55906/08820 0823 0845 0900 0915TempPulse 88 88 86 85 77Resp 19 17 17B/P 136/64 136/64 172/65 166/63 151/59B/P MeanPulse Ox 96 94 95O2 DeliveryO2 Flow OzgxGcP04106/08919 0930 0930 0945 1000TempPulse 76 73 73Resp 17 16 12B/P 148/56 131/52 141/50B/P MeanPulse Ox 92 95 96O2 Delivery Nasal cannulaO2 Flow Rate 2OwQ52906/08015 1030 1045 1045 1100TempPulse 75 75 72 70Resp 15 23 15 17B/P 140/118 142/58 144/53 142/55B/P MeanPulse Ox 93 93 95 95O2 DeliveryO2 Flow YjefIoX64606/08115 1130 1145 1200 1200TempPulse 72 70 71 72Resp 15 16 15 18B/P 125/42 121/52 119/52 130/48B/P MeanPulse Ox 94 94 91 93O2 DeliveryO2 Flow FsevGxL28606/08215 1230 1245TempPulse 73 71 72Resp 13 21 16B/P 100/79 140/51 125/47B/P MeanPulse Ox 93 93 90O2 DeliveryO2 Flow ZiylZiZ6Gmhwxz/OutputIntake/Output Summary 24 hours06/07 1900 06/08 0700Intake Total [...] Status unable to evaluateResultsLaboratory DataRecent Labs- 24 hours06/07655285 3001 1736Blood GasABG pH (7.360 - 7.440) 7.406ABG [...] 12.0C-Reactive Protein (0.00 - 0.49 mg/dL) 5.97 XRmz-T-Waqphxcfqef Pept (0 - 125 pg/mL) 5531 HTotal [...] % (auto) (0 %) 0RBC Morphology 1+ DNOHFPOZXOTZ1806/076 1736 1758Blood GasABG pH CancelledABG pCO2 CancelledABG [...] ClearUrine pH (5.0 - 8.0) 5.5Ur Specific [place] (1.010 - 1.025) 1.012Urine Protein (Negative) 3+Urine Ketones (NEGATIVE) NegativeUrine Blood (NEGATIVE) NegativeUrine Nitrite (Negative) NegativeUr Bilirubin Confirm (NEGATIVE) NegativeUrine Urobilinogen (0.2 - 1.0 mg/dL) 0.2Urine Leukocytes (Negative) NegativeUrine RBC (NONE SEEN) 0-2 RBCs/HPFUrine WBC (NONE SEEN) 0-2 WBCs/HPFUrine Bacteria (NONE SEEN) FewUrine Casts (NONE SEEN) FEW GRANULAR/LPFFEW HYALINE/LPFUrine Mucus (NONE SEEN) FewUrine Glucose (NEGATIVE) Ownlyjia81/317599FxkpcwfmiQbgjwv (136 - 147 mmol/L) 144Potassium (3.5 - [...] rce(s) Supporting Document(s) ID Date Data Source [id number] 06/07/2020 06:27:00 PM EDT [facility] Name Value Range Interpretation Code Description Data Rosa rce(s) Supporting Document(s) URINE COLOR Yellow [facility] UAPR Clear [facility] UGLU Negative NEGATIVE [facility] URINE BILIRUBIN [facility]IVE [facility] UK[facility] Negative NEGATIVE [facility] USG 1.012 1.010-1.025 [facility] UBLO Negative NEGATIVE [facility] UpH 5.5 5.0-8.0 [facility] UPRO 3+ Negative [facility] UUB 0.2 mg/dL 0.2-1.0 [facility] UNIT Negative Negative [facility] ULEU Negative Negative [facility] ID Date Data Source [id number] 06/07/2020 06:27:00 PM EDT [facility] Name Value Range Interpretation Code Description Data Rosa rce(s) Supporting Document(s) URINE RBC 0-2 RBCs/HPF NONE SEEN [facility] URINE WBC 0-2 WBCs/HPF NONE SEEN [facility] URINE BACTERIA Few NONE SEEN [facility] l URINE EPI. Rare NONE SEEN [facility] FEW GRANULAR/LPFFEW HYALINE/LPF UMUCUS Few NONE SEEN [facility] ID Date Data Source [id number] 06/07/2020 05:46:00 PM EDT [facility] Number: [id number] OF EXAMINATIO N: 06/07/2020 16:29 EDTCT ANGIO [...] rce(s) Supporting Document(s) ID Date Data Source [id number] 06/07/2020 05:39:00 PM EDT [facility] Exam Number: [id number] OF EXAMINATIO N: 06/07/2020 16:29 EDTCT BRAIN [...] rce(s) Supporting Document(s) ID Date Data Source [id number] 06/07/2020 06:19:00 PM EDT [facility] Name Value Range Interpretation Code Description Data Rosa rce(s) Supporting Document(s) C-REACTIVE PROT 5.97 mg/dL 0.00-0.49 [facility] [place] [facility] ID Date Data Source [id number] 06/07/2020 06:19:00 PM EDT [facility] Name Value Range Interpretation Code Description Data Rosa rce(s) Supporting Document(s) NT-PROBNP 5531 pg/mL 0-125 [facility] ID Date Data Source [id number] 06/07/2020 06:19:00 PM EDT [facility] Name Value Range Interpretation Code Description Data Rosa rce(s) Supporting Document(s) GLU 36 mg/dL 70-110 [facility] Patients taking Sulfasalazine may have f alsely depressedGlucose levels. Patients taking Sulfapyridine may havefalsely elevated Glucose levels. Patients should be drawnfor Glucose before the initial administration of eitherdrug. BUN 34 mg/dL 7-23 [facility] CRE 0.932 mg/dL 0.500-1.300 [facility] GFR > 60 mL/min [facility] CHLORIDE 109 mmol/L 99-110 [facility] NA 144 mmol/L 136-147 [facility] POTASSIUM 4.1 mmol/L 3.5-5.1 [facility] TCO2 28 mmol/L 20-33 [facility] ANION GAP 11.1 10.0-20.0 [facility] CA 8.3 mg/dL 8.3-10.7 [facility] ALKALINE PHOS 205 U/L 45-117 [facility] TP 5.4 g/dL 6.0-7.8 [facility] ALB 2.4 g/dL 3.5-5.0 [facility] ESRD Dialysis patient Albumin reference range: 2.9-4.4 g/dL GL 3.0 g/dL 2.3-3.5 [facility] A/G 0.8 1.0-2.5 [facility] T. BILIRUBIN 0.4 mg/dL 0.1-1.1 [facility] The Dimension Mor[place] Total Bilirubin is n ot recommended forpatients undergoing treatment with eltrombopag (Promacta)due to the potential for falsely elevated results. ALTI 19 U/L 6-54 [facility] Patients taking Sulfasalazine and/or Sul fapyridine may havefalsely depressed ALT levels. Patients should be drawn forALT before the initial administration of either drug. AST 20 U/L 6-38 [facility] Patients taking Sulfasalazine and/or Sul fapyridine may havefalsely depressed AST levels. Patients should be drawn forAST before the initial administration of either drug. ID Date Data Source [id number] 06/07/2020 06:15:00 PM EDT [facility] Name Value Range Interpretation Code Description Data Rosa rce(s) Supporting Document(s) TROPONIN HS 33.3 ng/L 3.0-82.3 [facility] ID Date Data Source [id number] 06/07/2020 06:15:00 PM EDT [facility] Name Value Range Interpretation Code Description Data Rosa rce(s) Supporting Document(s) LACTIC ACID COMFORT 0.4 mmol/L 0.4-2.0 [facility] ID Date Data Source [id number] 06/07/2020 06:14:00 PM EDT [facility] Name Value Range Interpretation Code Description Data Rosa rce(s) Supporting Document(s) AMMONIA 12.0 umol/L 11-32 [facility] Patients taking Sulfasalazine may have f alselyelevated Ammonia results. Patients taking Sulfapyridine mayhave falsely depressed Ammonia levels. Patients should bedrawn for Ammonia before the initial administration ofeither drug. ID Date Data Source [id number] 06/07/2020 06:04:00 PM EDT [facility] Name Value Range Interpretation Code Description Data Rosa rce(s) Supporting Document(s) WBC 9.98 x10E3/uL 4.0-10.5 [facility] RBC 3.08 x10E6/uL 4.20-5.40 [facility] Hemoglobin 9.3 g/dL 12.0-16.0 [facility] Hematocrit 29.2 % 37.0-47.0 [facility] MCV 94.8 fL 81.0-99.0 [facility] MCH 30.2 pg 27.0-31.0 [facility] MCHC 31.8 g/dL 32.7-35.6 [facility] RDW 17.5 % 11.5-14.0 [facility] Platelet count 177 x10E3/uL 150-450 N [facility] ital MPV 9.8 fl 6.9-9.5 [facility] Neutrophils 86.7 % 34-64 [facility] Lymphocytes 3.9 % 25-45 [facility] Monocytes 8.3 % 1.7-10.6 [facility] Eosinophils 0.4 % 0.4-7.0 [facility] Basophils 0.3 % 0.1-2.0 [facility] Imm. Gran. 0.4 % 0.1-2.0 [facility] Abs. Neutro. 8.65 x10E3/uL 1.2-7.6 [facility] Abs. Lymph. 0.39 x10E3/uL 1.0-3.5 [facility] Abs. Mobile. 0.83 x10E3/uL 0.1-1.0 N [facility] l Abs. Eosin. 0.04 x10E3/uL 0.1-0.7 [facility] Abs. Baso. 0.03 x10E3/uL 0.0-0.1 N [facility] l Abs. Imm. Gran. 0.04 x10E3/uL 0.0-0.1 N [facility] spital ANRBC% 0 % 0 [facility] DIFFERENTIAL CONFIRMED BY SLIDE REVIEW. RBC MORPHOLOGY 1+ ANISOCYTOSIS N [facility] ospital RBC MORPHOLOGY EXPECTED RESULTS: NORMAL = NORMOCHROMIC, NORMOCYTIC CELLSAny findings other than Normal will be reported and areconsidered Abnormal. The significance of Abnormalfindings are to be clinically correlated by the provider. ID Date Data Source [id number] 06/07/2020 04:04:00 PM EDT [facility] Exam Number: [id number] OF EXAMINATIO N: 06/07/2020 15:20 EDTCHEST SINGLE [...] rce(s) Supporting Document(s) ID Date Data Source [id number] 06/07/2020 03:46:00 PM EDT [facility] O2 % or Liter Flow: 6L Name Value Range Interpretation Code Description Data Rosa rce(s) Supporting Document(s) PO2 69.0 mmHg 80-100 [facility] PCO2 45.3 mmHg 35-50 [facility] PH 7.406 7.360-7.440 [facility] HCO3(ABG) 27.8 mmol/L 20-33 [facility] %SATO2 92.9 % 95-100 [facility] BASE EXCESS 2.6 mmol/L -3 TO +3 [facility] DEVICE/FIO2 100% [facility] tHb 11.6 g/dL 12-18 [facility] FO2Hb 91.9 % 94.0-97.0 [facility] FMETHb 0.6 % 0.0-1.5 [facility] CO 0.5 % [facility] CARBOXYHEMOGLOBIN INTERPRET ATION % TOTAL HEMOGLOBIN NONSMOKER: <2% AVERAGE SMOKER: 4-5% 1-2 PACKS/DAY HEAVY SMOKER 8-12% >2 PACKS/DAY POTENTIALLY TOXIC: >15% ID Date Data Source [id number] 06/07/2020 12:50:00 PM EDT [facility] Name Value Range Interpretation Code Description Data Rosa rce(s) Supporting Document(s) FGLU 110 mg/dL 70-110 [facility] ID Date Data Source [id number] 06/07/2020 03:52:00 PM EDT [facility] Name Value Range Interpretation Code Description Data Rosa rce(s) Supporting Document(s) FGLU 143 mg/dL 70-110 [facility] ID Date Data Source [id number] 06/07/2020 05:23:00 PM EDT [facility] Name Value Range Interpretation Code Description Data Rosa rce(s) Supporting Document(s) FGLU 228 mg/dL 70-110 [facility] ID Date Data Source [id number] 06/07/2020 06:08:00 AM EDT [facility] Name Value Range Interpretation Code Description Data Rosa rce(s) Supporting Document(s) FGLU 210 mg/dL 70-110 [facility] ID Date Data Source [id number] 06/06/2020 08:18:00 PM EDT [facility] Name Value Range Interpretation Code Description Data Rosa rce(s) Supporting Document(s) FGLU 69 mg/dL 70-110 [facility] ID Date Data Source [id number] 06/06/2020 08:04:00 PM EDT [facility] Name Value Range Interpretation Code Description Data Rosa rce(s) Supporting Document(s) FGLU 69 mg/dL 70-110 [facility] ID Date Data Source [id number] 06/06/2020 09:36:00 PM EDT [facility] Name Value Range Interpretation Code Description Data Rosa rce(s) Supporting Document(s) FGLU 150 mg/dL 70-110 [facility] ID Date Data Source [id number] 06/06/2020 10:41:00 AM EDT [facility] [place] [address] [id number] NOTEPATIENT NAME: COUTURE,ELA BATTENDING PHYSICIAN: MICHAEL WANG, MDAUTHOR: Shankar Denis DO. DATE: 05/18/20 MR#: [id number] NOTE DATE: 06/06/20 RM#: [id number] TIME: 1050 : 45SubjectiveEvents Since Last EntryPatient seen and examined in the room today. No fever or chill. Denies anyworsening of the breathing.ObjectiveVital SignsVital Signs-24 HRS06/05168322 5671 2127 2199 0652Temp 98.2 98.9 98.0Pulse 67 81 85 79Resp 17 17 17B/P 111/54 120/68 138/57 120/57B/P MeanPulse Ox 93 92 91O2 Delivery Nasal cannula Nasal cannulaO2 Flow Rate 3L 8BYbB36306/06823 0825 0826 0826TempPulse 91 91RespB/P 121/66 121/66 121/66 121/66B/P MeanPulse OxO2 DeliveryO2 Flow JvurUmP8Phmrph/OutputIntake/Output Summary 24 hours06/05 1900 06/06 0700Intake Total [...] no lymphadenopathyPsych/Mental Status mood neutralResultsLaboratory DataRecent Labs-24 hours06/05047182 6954 1318 1708 2019ChemistryPOC Glucose (70 - 110 mg/dL) 62 L 61 L 151 H 127 H 208 H006/[id number] 0631ChemistrySodium (136 - 147 mmol/L) 143Potassium (3.5 [...] for discharge: [facility] PneumoniaStatus AcuteA&P- S/P course [...] duloxetine. Continue Buspar.12. AnxietyStatus AcuteA&P- Continue BuSpar, . PVD (peripheral vascular disease)Status ChronicA&P-History of stent placement.-Continue Plavix, nstqwo57. DebilityStatus ChronicA&P-Patient needs subacute rehab.15. HypoalbuminemiaStatus ChronicA&P- Continue Ensure supplement.-Encourage oral intake as tolerated.16. Polysubstance abuseStatus ChronicA&P-Continue thiamine, folic acid and kypxytcwrndt82. HypernatremiaStatus Zpkhzpuc00. Anemia of chronic diseaseStatus AcuteA&P-Status post 3 PRBC transfusions.- HH is maintaining.19. CandidiasisStatus AcuteA&P- Continue nystatin powder. Continue MIconazole cream.Resuscitation status Full codeDATE SIGNED: 06/11/20 Electronically SignedTIME SIGNED: 2126 [place] DENIS DO Name Value Range Interpretation Code Description Data Rosa [facility](s) Supporting Document(s) ID Date Data Source [id number] 06/06/2020 06:37:00 AM EDT [facility] Name Value Range Interpretation Code Description Data Rosa rce(s) Supporting Document(s) FGLU 236 mg/dL 70-110 [facility] ID Date Data Source [id number] 06/06/2020 06:41:00 AM EDT [facility] Name Value Range Interpretation Code Description Data Rosa rce(s) Supporting Document(s) MAGNESIUM 2.0 mg/dL 1.6-2.6 [facility] ID Date Data Source [id number] 06/06/2020 06:41:00 AM EDT [facility] Name Value Range Interpretation Code Description Data Rosa rce(s) Supporting Document(s) GLU 188 mg/dL 70-110 [facility] Patients taking Sulfasalazine may have f alsely depressedGlucose levels. Patients taking Sulfapyridine may havefalsely elevated Glucose levels. Patients should be drawnfor Glucose before the initial administration of eitherdrug. BUN 35 mg/dL 7-23 [facility] CRE 0.931 mg/dL 0.500-1.300 [facility] GFR > 60 mL/min [facility] CHLORIDE 108 mmol/L 99-110 [facility] NA 143 mmol/L 136-147 [facility] POTASSIUM 4.8 mmol/L 3.5-5.1 [facility] TCO2 27 mmol/L 20-33 [facility] ANION GAP 12.8 10.0-20.0 [facility] CA 8.5 mg/dL 8.3-10.7 [facility] ID Date Data Source [id number] 06/06/2020 05:47:00 AM EDT [facility] Name Value Range Interpretation Code Description Data Rosa rce(s) Supporting Document(s) WBC 8.26 x10E3/uL 4.0-10.5 [facility] RBC 3.32 x10E6/uL 4.20-5.40 [facility] Hemoglobin 10.0 g/dL 12.0-16.0 [facility] Hematocrit 31.6 % 37.0-47.0 [facility] MCV 95.2 fL 81.0-99.0 [facility] MCH 30.1 pg 27.0-31.0 [facility] MCHC 31.6 g/dL 32.7-35.6 [facility] RDW 17.4 % 11.5-14.0 [facility] Platelet count 170 x10E3/uL 150-450 [facility] ital MPV 10.3 fl 6.9-9.5 [facility] Neutrophils 78.0 % 34-64 [facility] Lymphocytes 8.8 % 25-45 [facility] Monocytes 10.2 % 1.7-10.6 [facility] Eosinophils 2.2 % 0.4-7.0 [facility] Basophils 0.4 % 0.1-2.0 [facility] Imm. Gran. 0.4 % 0.1-2.0 [facility] Abs. Neutro. 6.45 x10E3/uL 1.2-7.6 [facility] Abs. Lymph. 0.73 x10E3/uL 1.0-3.5 [facility] Abs. Mobile. 0.84 x10E3/uL 0.1-1.0 [facility] Abs. Eosin. 0.18 x10E3/uL 0.1-0.7 [facility] Abs. Baso. 0.03 x10E3/uL 0.0-0.1 [facility] Abs. Imm. Gran. 0.03 x10E3/uL 0.0-0.1 [facility] [place] [facility] ANRBC% 0 % 0 [facility] ID Date Data Source [id number] 06/06/2020 12:17:00 AM EDT [facility] Name Value Range Interpretation Code Description Data Rosa rce(s) Supporting Document(s) FGLU 208 mg/dL 70-110 [facility] ID Date Data Source [id number] 06/05/2020 09:16:00 PM EDT [facility] Name Value Range Interpretation Code Description Data Rosa rce(s) Supporting Document(s) FGLU 127 mg/dL 70-110 [facility] ID Date Data Source [id number] 06/05/2020 01:27:00 PM EDT [facility] Name Value Range Interpretation Code Description Data Rosa rce(s) Supporting Document(s) FGLU 151 mg/dL 70-110 [facility] ID Date Data Source [id number] 06/05/2020 02:57:00 PM EDT [facility] Name Value Range Interpretation Code Description Data Rosa rce(s) Supporting Document(s) FGLU 61 mg/dL 70-110 [facility] ID Date Data Source [id number] 06/05/2020 04:28:00 PM EDT [facility] Name Value Range Interpretation Code Description Data Rosa rce(s) Supporting Document(s) FGLU 62 mg/dL 70-110 [facility] ID Date Data Source [id number] 06/05/2020 10:50:00 AM EDT [facility] [address] [id number] NOTEPATIENT NAME: COUTURE,ELA BATTENDING PHYSICIAN: MICHAEL WANG MDAUTHOR: Shankar Denis DO. DATE: 05/18/20 MR#: [id number] NOTE DATE: 06/05/20 RM#: [id number] TIME: 1123 : 45SubjectiveEvents Since Last EntryPatient seen and examined in the room today. Patient still complains of herchronic back pain. No fever or chill. Denies any worsening of the breathing.ObjectiveVital SignsVital Signs-24 HRS06/04118337 9617 2140 2200 0541Temp 98.2 97.7 97.5Pulse 70 76 75 82Resp 17 18 16B/P 127/64 128/72 134/65 164/63B/P MeanPulse Ox 81 92 92O2 Delivery Nasal cannula Nasal cannula Nasal cannulaO2 Flow Rate 3L 3L 8NiG53906/05144735 0472 0728 0732TempPulse 81 81RespB/P 161/64 161/64 161/64 161/64B/P MeanPulse OxO2 DeliveryO2 Flow BzsiFnD3Fllqrn/OutputIntake/Output Summary 24 hours06/04 1900 06/05 0700Intake Total [...] duloxetine. Continue Buspar.12. AnxietyStatus AcuteA&P- Continue BuSpar, . PVD (peripheral vascular disease)Status ChronicA&P-History of stent placement.-Continue Plavix, arqtax42. DebilityStatus ChronicA&P-Patient needs subacute rehab.15. HypoalbuminemiaStatus ChronicA&P- Continue Ensure supplement.-Encourage oral intake as tolerated.16. Polysubstance abuseStatus ChronicA&P-Continue thiamine, folic acid and cfcktxorodks84. HypernatremiaStatus Epwcownk76. HyperglycemiaStatus Acute19. Anemia of chronic diseaseStatus AcuteA&P-Status post 3 PRBC transfusions.- HH is maintaining.20. CandidiasisStatus AcuteA&P-Continue nystatin powder.- MIconazole added.Additional NotesBarrier for discharge: Patient requires subacute rehab arrangement.Resuscitation status Full codeVTE ProphylaxisVTE Prophylaxis: Continue heparin.DATE SIGNED: 06/11/20 Electronically SignedTIME SIGNED: 2126 [place] DENIS DO Name Value Range Interpretation Code Description Data Rosa rce(s) Supporting Document(s) ID Date Data Source [id number] 06/05/2020 06:57:00 AM EDT [facility] Name Value Range Interpretation Code Description Data Rosa rce(s) Supporting Document(s) FGLU 261 mg/dL 70-110 [facility] ID Date Data Source [id number] 06/04/2020 07:07:00 PM EDT [place] [facility] Name Value Range Interpretation Code Description Data Rosa rce(s) Supporting Document(s) FGLU 79 mg/dL 70-110 [facility] ID Date Data Source [id number] 06/04/2020 08:39:00 PM EDT [facility] Name Value Range Interpretation Code Description Data Rosa rce(s) Supporting Document(s) FGLU 54 mg/dL 70-110 [facility] ID Date Data Source [id number] 06/04/2020 12:11:00 PM EDT [facility] [place] [id number] NOTEPATIENT NAME: ELA PONCE BATTENDING PHYSICIAN: MICHAEL WANG, MDAUTHOR: Breezy [place], Zhang. DATE: 05/18/20 MR#: [id number] NOTE DATE: 06/04/20 RM#: [id number] TIME: 1220 : 45SubjectiveCC/Hx Present IllnessBack painEvents Since Last EntryCurrently alert oriented x3. Very poor historian, Patient comfortable,reported chronic back pain. Tolerating p.o, Denies chest pain. Afebrile. Allother review of s ystem negativeObjectiveVital SignsVital Signs-24 HRS06/03414620 4582 2104 2155 0619Temp 98.2 98.5 97.5Pulse 71 76 76 74Resp 16 16 16B/P 108/52 140/64 140/64 145/65B /P MeanPulse Ox 98O2 Delivery Nasal cannula Nasal cannulaO2 Flow Rate 3L 3PKiJ03106/04921276 6781 0749 0753TempPulse 68 68RespB/P 148/68 148/68 148/68 148/68B/P MeanPulse OxO2 DeliveryO2 Flow HzngUfF7Euvmwd/OutputIntake/Output Summary 24 hours06/03 1900 06/04 0700Intake Total [...] Status mood neutral, no hallucinationsResultsLaboratory DataRecent Labs-24 hours06/03171853 4371 0338 0532ChemistrySodium (136 - 147 mmol/L) 144Potassium [...] UTI (urinary tract infection)Status ResolvedA&PTreated with Zosyn sr-Kijqyi-bi urine culture.5. HLD (hyperlipidemia)Status ChronicA&PContinue statin6. Spinal [...] essential hypertension Qualified Code: I10 - Essential(primary) uujaxafvjysj19. CKD (chronic kidney disease)Status ChronicA&P-Monitor renal function.11. DiabetesStatus ChronicA&PComplicated with hypoglycemia and hyperglycemiaIncreased Levemir 14 units daily, continue NovoLog via protocol, closemonitoring, taper off uxwiunll43. AnxietyStatus AcuteA&PContinue current xxabueojke29. PVD (peripheral vascular disease)Status ChronicA&PHistory of stent placement.Continue with Plavix, statin-Continue to monitor.14. DebilityStatus ChronicA&P-Supportive care-Consider PT/OT when patient is more alert.15. HypoalbuminemiaStatus ChronicA&PEncourage p.o. intake. Nutrition supplementation.Ensure p.o. 3 times daily.16. Polysubstance abuseStatus ChronicA&PThiamine, folic acid, multivitamin, no signs of ovhqzruqmt33. HypernatremiaStatus ResolvedA&RSiphvymtm31. HyperglycemiaStatus AcuteA&a mp;PMonitor, off ugaywgw90. T1-T2 SUBACUTE FRACTUREStatus AcuteA&PPT, OT, fall precaution, pain medication as mbadiyc22. Anemia of chronic diseaseStatus AcuteA&PWorsening anemia, no signs of bleeding, transfuse 3unit PRBC with appropriateresponse. Will monitor, further work-up as csujdtmtiz35. CandidiasisStatus AcuteA&PTreatment as above ordered, wound careAdditional Laowe07-rwel-tcr female patient underlying medical history of COPD O2 dependent,spinal stenosis, depression, dyslipidemia, type 2 diabetes, nicotine addiction,anxiety, hypothyroidism, debility, CKD, peripheral vascular dise ase,hypoalbuminemia, polysubstance abuse, initially admitted to [facility] for right upper lobe pneumonia, sepsis, deconditioning with frequentfall, transferred given complains of back pain and worsening leukocytosis.DVT prophylaxis Heparin subcuDisposition short-term rehabResuscitation status Full codePlan discussed with patientCase discussed with family caseworker, nursing staffVTE ProphylaxisVTE Prophylaxis: Heparin subcu.DATE SIGNED: 06/04/20 Electronically SignedTIME SIGNED: 1220 SAAD FRIED MD Name Value Range Interpretation Code Description Data Rosa rce(s) Supporting Document(s) ID Date Data Source [id number] 06/04/2020 12:48:00 PM EDT [facility] Name Value Range Interpretation Code Description Data Rosa rce(s) Supporting Document(s) FGLU 183 mg/dL 70-110 [facility] ID Date Data Source [id number] 06/04/2020 09:13:00 AM EDT [facility] jer Name Value Range Interpretation Code Description Data Rosa rce(s) Supporting Document(s) FGLU 169 mg/dL 70-110 [facility] ID Date Data Source [id number] 06/04/2020 06:16:00 AM EDT [facility] jer Name Value Range Interpretation Code Description Data Rosa rce(s) Supporting Document(s) WBC 8.08 x10E3/uL 4.0-10.5 [facility] RBC 3.67 x10E6/uL 4.20-5.40 [facility] Hemoglobin 11.0 g/dL 12.0-16.0 [facility] Hematocrit 34.5 % 37.0-47.0 [facility] MCV 94.0 fL 81.0-99.0 [facility] MCH 30.0 pg 27.0-31.0 [facility] MCHC 31.9 g/dL 32.7-35.6 [facility] RDW 17.6 % 11.5-14.0 [facility] Platelet count 174 x10E3/uL 150-450 [facility] ital MPV 10.0 fl 6.9-9.5 [facility] Neutrophils 81.2 % 34-64 [facility] Lymphocytes 7.8 % 25-45 [facility] Monocytes 8.0 % 1.7-10.6 [facility] Eosinophils 2.2 % 0.4-7.0 [facility] Basophils 0.2 % 0.1-2.0 [facility] Imm. Gran. 0.6 % 0.1-2.0 [facility] Abs. Neutro. 6.55 x10E3/uL 1.2-7.6 [facility] Lymph. 0.63 x10E3/uL 1.0-3.5 [facility] Abs. Mobile. 0.65 x10E3/uL 0.1-1.0 [facility] Abs. Eosin. 0.18 x10E3/uL 0.1-0.7 [facility] Abs. Baso. 0.02 x10E3/uL 0.0-0.1 [facility] Abs. Imm. Gran. 0.05 x10E3/uL 0.0-0.1 N [facility] spital ANRBC% 0 % 0 [facility] ID Date Data Source [id number] 06/04/2020 05:26:00 AM EDT [facility] Name Value Range Interpretation Code Description Data Rosa rce(s) Supporting Document(s) MAGNESIUM 1.8 mg/dL 1.6-2.6 [facility] ID Date Data Source [id number] 06/04/2020 05:26:00 AM EDT [facility] Name Value Range Interpretation Code Description Data Rosa rce(s) Supporting Document(s) GLU 132 mg/dL 70-110 [facility] Patients taking Sulfasalazine may have f alsely depressedGlucose levels. Patients taking Sulfapyridine may havefalsely elevated Glucose levels. Patients should be drawnfor Glucose before the initial administration of eitherdrug. BUN 38 mg/dL 7-23 [facility] CRE 1.100 mg/dL 0.500-1.300 [facility] GFR 52 mL/min [facility] CHLORIDE 111 mmol/L 99-110 [facility] NA 144 mmol/L 136-147 [facility] POTASSIUM 4.7 mmol/L 3.5-5.1 [facility] TCO2 30 mmol/L 20-33 [facility] ANION GAP 7.7 10.0-20.0 [facility] CA 8.2 mg/dL 8.3-10.7 [facility] ID Date Data Source [id number] 06/04/2020 04:52:00 AM EDT [facility] Name Value Range Interpretation Code Description Data Rosa rce(s) Supporting Document(s) FGLU 125 mg/dL 70-110 [facility] ID Date Data Source [id number] 06/03/2020 07:50:00 PM EDT [facility] Name Value Range Interpretation Code Description Data Rosa rce(s) Supporting Document(s) FGLU 135 mg/dL 70-110 [facility] ID Date Data Source [id number] 06/03/2020 01:02:00 PM EDT [facility] Name Value Range Interpretation Code Description Data Rosa rce(s) Supporting Document(s) FGLU 223 mg/dL 70-110 [facility] ID Date Data Source [id number] 06/03/2020 08:10:00 AM EDT [address] [id number] NOTEPATIENT NAME: ELA PONCE PHYSICIAN: MICHAEL WANG MDAUTHOR: Breezy GA, Zhang. DATE: 05/18/20 MR#: [id number] NOTE DATE: 06/03/20 RM#: [id number] TIME: 818 [...] cannula Nasal cannulaO2 Flow Rate 3L 3L 2VBtY433/833869Ykeo 97.9Pulse 77Resp 18B/P 166/74B/P MeanPulse Ox 94O2 Delivery Nasal cannulaO2 Flow Rate 5LHkY5Rbodul/OutputIntake/Output Summary 24 hours06/02 1900 06/03 0700Intake Total [...] mood neutral, no hallu cinationsResultsLaboratory DataRecent Labs-24 hours06/02542555 1614 2101 0608ChemistryPOC Glucose (70 - 110 mg/dL) [...] UTI (urinary tract infection)Status ResolvedA&PTreated with Zosyn rz-Atdnyv-hc urine culture.5. HLD (hyperlipidemia)Status ChronicA&PContinue statin6. Spinal [...] essential hypertension Qualified Code: I10 - Essential(primary) bqkapknfrrlp96. CKD (chronic kidney disease)Status ChronicA&P-Monitor renal function.11. DiabetesStatus ChronicA&PComplicated with hypoglycemia and hyperglycemiaIncreased Levemir 14 units daily, continue NovoLog via protocol, closemonitoring, taper off esslohgv33. AnxietyStatus AcuteA&PContinue current celevqxkme95. PVD (peripheral vascular disease)Status ChronicA&PHistory of stent placement.Continue with Plavix, statin-Continue to monitor.14. DebilityStatus ChronicA&P-Supportive care-Consider PT/OT when patient is more alert.15. HypoalbuminemiaStatus ChronicA&PEncourage p.o. intake. Nutrition supplementation.Ensure p.o. 3 times daily.16. Polysubstance abuseStatus ChronicA&PThiamine, folic acid, multivitamin, no signs of uxkkeuerjd93. HypernatremiaStatus ResolvedA&PDiucqrzrs41. HyperglycemiaStatus AcuteA&PMonitor, taper jmuhmry26. T1-T2 SUBACUTE FRACTUREStatus AcuteA&PPT, OT, fall precaution, pain medication as onxgkkn71. Anemia of chronic diseaseStatus AcuteA&PWorsening anemia, no signs of bleeding, transfuse 3unit PRBC with appropriateresponse. Will monitor, further work-up as outpatientAdditional Spmbz17-snrr-kam female patient underlying medical history of COPD O2 dependent,spinal stenosis, depression, dyslipidemia, type 2 diabetes, nicotine addiction,anxiety, hypothyroidism, debility, CKD, peripheral vascular disease,hypoalbuminemia, polysubstance abuse, initially admitted to [facility] for right upper lobe pneumonia, sepsis, deconditioning with frequentfall, transferred given complains of back pain and worsening leukocytosisDVT prophylaxis Heparin subcuDisposition short-term rehabResuscitation status Full codePlan discussed with patientCase discussed with family caseworker, nursing staffVTE ProphylaxisVTE Prophylaxis: Heparin subcu.DATE SIGNED: 06/03/20 Electronically SignedTIME SIGNED: 817 SAAD FRIED MD Name Value Range Interpretation Code Description Data Rosa rce(s) Supporting Document(s) ID Date Data Source [id number] 06/03/2020 06:12:00 AM EDT [facility] Name Value Range Interpretation Code Description Data Rosa rce(s) Supporting Document(s) FGLU 315 mg/dL 70-110 [facility] ID Date Data Source [id number] 06/02/2020 09:04:00 PM EDT [facility] Name Value Range Interpretation Code Description Data Rosa rce(s) Supporting Document(s) FGLU 309 mg/dL 70-110 [facility] ID Date Data Source [id number] 06/02/2020 06:12:00 PM EDT [facility] Name Value Range Interpretation Code Description Data Rosa rce(s) Supporting Document(s) FGLU 344 mg/dL 70-110 [facility] ID Date Data Source [id number] 06/02/2020 03:29:00 PM EDT [address] [id number] NOTEPATIENT NAME: ELA PONCE BATTENDING PHYSICIAN: MICHAEL WANG, MDAUTHOR: Breezy GA, Zhang. DATE: 05/18/20 MR#: [id number] NOTE DATE: 06/02/20 RM#: [id number] TIME: 1539 [...] cannula Nasal cannulaO2 Flow Rate 3L 3L [id number]/02551 0748 0749 0749 0850Temp 97.7Pulse 76 76Resp 20B/P 170/79 170/79 170/79 170/79B/P MeanPulse Ox 93O2 Delivery Nasal cannula Nasal cannulaO2 Flow Rate 3L 4ICbQ09106/02115 1334Temp 98.2Pulse 70 62Resp 17B/P 154/68 148/68B/P MeanPulse Ox 98O2 Delivery Nasal cannulaO2 Flow Rate 2FMsP8Fcisgm/OutputIntake/Output Summary 24 hours06/01 1900 06/02 0700Intake Total [...] Status mood neutral, no hallucinationsResultsLaboratory DataRecent Labs-24 hours06/01226744 1575 0432 5097 1121ChemistryPOC Glucose (70 - 110 mg/dL) 191 [...] essential hypertension Qualified Code: I10 - Essential(primary) nljuvbokkewe58. CKD (chronic kidney disease)Status ChronicA&P-Monitor renal function.11. DiabetesStatus ChronicA&PComplicated with hypoglycemia and hyperglycemiaLevemir 10 units daily, continue NovoLog via protocol, close monitoring, fhpxokdczrtui44. AnxietyStatus AcuteA&PContinue current xyhzxrlngz90. PVD (peripheral vascular disease)Status ChronicA&PHistory of stent placement.Continue with Plavix, statin-Continue to monitor.14. DebilityStatus ChronicA&P-Supportive care-Consider PT/OT when patient is more alert.15. HypoalbuminemiaStatus ChronicA&PEncourage p.o. intake. Nutrition supplementation.Ensure p.o. 3 times daily.16. Polysubstance abuseStatus ChronicA&PThiamine, folic acid, multivitamin, no signs of eitkjyiwce39. HypernatremiaStatus ResolvedA&CBzoeigqqd27. HyperglycemiaStatus AcuteA&PMonitor, taper mtffvuq78. T1-T2 SUBACUTE FRACTUREStatus AcuteA&PPT, OT, fall precaution, pain medication as dcnueyn48. Anemia of chronic diseaseStatus AcuteA&PWorsening anemia, no signs of bleeding, transfuse 3unit PRBC with appropriateresponse. Will monitor, further work-up as outpatientAdditional Nwckz96-sthz-owz female patient underlying medical history of COPD O2 de pendent,spinal stenosis, depression, dyslipidemia, type 2 diabetes, nicotine addiction,anxiety, hypothyroidism, debility, CKD, peripheral vascular disease,hypoalbuminemia, polysubstance abuse, initially admitted to [facility] for right upper lobe pneumonia, sepsis, deconditioning with frequentfall, transferred given complains of back pain and worsening leukocytosisDVT prophylaxis Heparin subcuDisposition short-term rehabResuscitation status Full codePlan discussed with patientCase discussed with family caseworker, nursing staffVTE ProphylaxisVTE Prophylaxis: Heparin subcu.DATE SIGNED: 06/02/20 Electronically SignedTIME SIGNED: 153 SAAD FRIED MD Name Value Range Interpretation Code Description Data Rosa rce(s) Supporting Document(s) ID Date Data Source [id number] 06/02/2020 01:01:00 PM EDT [facility] Name Value Range Interpretation Code Description Data Rosa rce(s) Supporting Document(s) FGLU 127 mg/dL 70-110 [facility] ID Date Data Source [id number] 06/02/2020 07:28:00 AM EDT [facility] Name Value Range Interpretation Code Description Data Rosa rce(s) Supporting Document(s) FGLU 237 mg/dL 70-110 [facility] ID Date Data Source [id number] 06/02/2020 05:41:00 AM EDT [facility] Name Value Range Interpretation Code Description Data Rosa rce(s) Supporting Document(s) Hemoglobin 10.6 g/dL 12.0-16.0 [facility] ID Date Data Source [id number] 06/01/2020 11:28:00 PM EDT [facility] Name Value Range Interpretation Code Description Data Rosa rce(s) Supporting Document(s) FGLU 181 mg/dL 70-110 [facility] ID Date Data Source [id number] 06/01/2020 08:53:00 PM EDT [facility] Name Value Range Interpretation Code Description Data Rosa rce(s) Supporting Document(s) FGLU 191 mg/dL 70-110 [facility] ID Date Data Source [id number] 06/01/2020 03:15:00 PM EDT [facility] [address] [id number] NOTEPATIENT NAME: ELA PONCE PHYSICIAN: MICHAEL WANG MDAUTHOR: Selma Caballero. DATE: 05/18/20 MR#: [id number] NOTE DATE: 06/01/20 RM#: [id number] TIME: 1519 [...] Nasal cannulaO2 Flow Rate 3 l 3L 4NCvU22206/01 0625 0736 0737 0737Temp 98.1Pulse 75 75Resp 19B/P 173/74 180/90 180/90 180/90 180/90B/P MeanPulse Ox 93 94O2 Delivery Nasal cannula Nasal cannulaO2 Flow Rate 3L 9OByT62806/01 0934TempPulse 77RespB/P 180/79B/P MeanPulse OxO2 Delivery Nasal cannulaO2 Flow Rate 4YKvU0Qxglde/OutputIntake/Output Summary 24 hours05/31 1900 06/01 0700Intake Total [...] essential hypertension Qualified Code: I10 - Essential(primary) nmztreygyfon21. CKD (chronic kidney disease)Status Ncnxcss88. DiabetesStatus Mednyuj92. AnxietyStatus Acute13. PVD (peripheral vascular disease)Status Yydxprf32. DebilityStatus Qgejptc36. HypoalbuminemiaStatus Cwuieoh60. Polysubstance abuseStatus Xsamnar47. HyperglycemiaStatus Acute18. T1-T2 SUBACUTE FRACTUREStatus Acute19. Anemia [...] essential hypertension Qualified Code: I10 - Essential(primary) kuwhfcbqmeef32. CKD (chronic kidney disease)Status ChronicA&PStable continue to [...] this patient at this time. Wewill await [facility]. This plan is the patient's wishes.Resuscitation status Full codePlan discussed with patient, romeoMando discussed with family caseworker, nursing staffDATE SIGNED: 06/01/20 Electronically SignedTIME SIGNED: 1519 CR FAJARDO Name Value Range Interpretation Code Description Data Rosa rce(s) Supporting Document(s) ID Date Data Source [id number] 06/01/2020 03:18:00 PM EDT [facility] Name Value Range Interpretation Code Description Data Rosa rce(s) Supporting Document(s) FGLU 157 mg/dL 70-110 [facility] ID Date Data Source [id number] 06/01/2020 06:19:00 AM EDT [facility] Name Value Range Interpretation Code Description Data Rosa e(s) Supporting Document(s) FGLU 215 mg/dL 70-110 [facility] ID Date Data Source [id number] 06/01/2020 05:52:00 AM EDT [facility] Name Value Range Interpretation Code Description Data Rosa rce(s) Supporting Document(s) GLU 179 mg/dL 70-110 [facility] Patients taking Sulfasalazine may have f alsely depressedGlucose levels. Patients taking Sulfapyridine may havefalsely elevated Glucose levels. Patients should be drawnfor Glucose before the initial administration of eitherdrug. BUN 29 mg/dL 7-23 [facility] CRE 1.100 mg/dL 0.500-1.300 [facility] GFR 52 mL/min [facility] CHLORIDE 110 mmol/L 99-110 [facility] NA 143 mmol/L 136-147 [facility] POTASSIUM 4.0 mmol/L 3.5-5.1 [facility] TCO2 30 mmol/L 20-33 [facility] ANION GAP 7.0 10.0-20.0 [facility] CA 8.4 mg/dL 8.3-10.7 [facility] ALKALINE PHOS 191 U/L 45-117 [facility] TP 5.9 g/dL 6.0-7.8 [facility] ALB 2.3 g/dL 3.5-5.0 [facility] ESRD Dialysis patient Albumin reference range: 2.9-4.4 g/dL GL 3.6 g/dL 2.3-3.5 [facility] A/G 0.6 1.0-2.5 [facility] T. BILIRUBIN 0.5 mg/dL 0.1-1.1 [facility] The Dimension [facility] Total Bilirubin is n ot recommended forpatients undergoing treatment with eltrombopag (Promacta)due to the potential for falsely elevated results. ALTI 31 U/L 6-54 [facility] Patients taking Sulfasalazine and/or Sul fapyridine may havefalsely depressed ALT levels. Patients should be drawn forALT before the initial administration of either drug. AST 33 U/L 6-38 [facility] Patients taking Sulfasalazine and/or Sul fapyridine may havefalsely depressed AST levels. Patients should be drawn forAST before the initial administration of either drug. ID Date Data Source [id number] 06/01/2020 05:52:00 AM EDT [facility] Name Value Range Interpretation Code Description Data Rosa rce(s) Supporting Document(s) MAGNESIUM 1.8 mg/dL 1.6-2.6 [facility] ID Date Data Source [id number] 06/01/2020 05:27:00 AM EDT [facility] jer Name Value Range Interpretation Code Description Data Rosa rce(s) Supporting Document(s) WBC 9.52 x10E3/uL 4.0-10.5 [facility] RBC 3.54 x10E6/uL 4.20-5.40 [facility] Hemoglobin 10.6 g/dL 12.0-16.0 [facility] Delta: 7.6 on 05/31/20-499 Hematocrit 32.3 % 37.0-47.0 [facility] Delta: 24.1 on 05/31/20-499 MCV 91.2 fL 81.0-99.0 [facility] Delta: 97.2 on 05/31/20 MCH 29.9 pg 27.0-31.0 [facility] MCHC 32.8 g/dL 32.7-35.6 [facility] RDW 18.0 % 11.5-14.0 [facility] Platelet count 158 x10E3/uL 150-450 [facility] ital MPV 9.5 fl 6.9-9.5 [facility] Neutrophils 82.7 % 34-64 [facility] Lymphocytes 7.7 % 25-45 [facility] Monocytes 6.9 % 1.7-10.6 [facility] Eosinophils 1.7 % 0.4-7.0 [facility] Basophils 0.2 % 0.1-2.0 [facility] Imm. Gran. 0.8 % 0.1-2.0 [facility] Abs. Neutro. 7.87 x10E3/uL 1.2-7.6 [facility] Abs. Lymph. 0.73 x10E3/uL 1.0-3.5 [facility] Abs. Mobile. 0.66 x10E3/uL 0.1-1.0 [facility] Abs. Eosin. 0.16 x10E3/uL 0.1-0.7 [facility] Abs. Baso. 0.02 x10E3/uL 0.0-0.1 [facility] Abs. Imm. Gran. 0.08 x10E3/uL 0.0-0.1 [facility] ANRBC% 0 % 0 [facility] ID Date Data Source [id number] 06/01/2020 12:26:00 AM EDT [facility] Name Value Range Interpretation Code Description Data Rosa rce(s) Supporting Document(s) FGLU 190 mg/dL 70-110 [facility] ID Date Data Source [id number] 05/31/2020 06:26:00 PM EDT [facility] Name Value Range Interpretation Code Description Data Rosa rce(s) Supporting Document(s) FGLU 192 mg/dL 70-110 [facility] ID Date Data Source [id number] 05/31/2020 02:27:00 PM EDT [address] [id number] NOTEPATIENT NAME: KRIS,ELA BATTENKEIKO PHYSICIAN: MICHAEL WANG MDAUTHOR: Selma Caballero. DATE: 05/18/20 MR#: [id number] NOTE DATE: 05/31/20 RM#: [id number] TIME: 1508 [...] cannula Nasal cannulaO2 Flow Rate 3 3L [id number]/31600 0831 0835 0837 0840Temp 97.8Pulse 74 75Resp 16B/P 165/72 142/58 142/58 142/58B/P MeanPulse Ox 94O2 Delivery Nasal cannula Nasal cannulaO2 Flow Rate 4L 2CpJ861/301479VvsnJzibo 75RespB/P 142/58B/P MeanPulse OxO2 DeliveryO2 Flow NobkPvZ3Wjokah/OutputIntake/Output Summary 24 hours05/30 1900 05/31 0700Intake Total [...] essential hypertension Qualified Code: I10 - Essential(primary) dguqfnviitxh79. CKD (chronic kidney disease)Status Vjkffaf17. DiabetesStatus Mzwnvab61. AnxietyStatus Acute13. PVD (peripheral vascular disease)Status Cjhxhlm88. DebilityStatus Tuxixlq79. HypoalbuminemiaStatus Dqqbfvk23. Polysubstance abuseStatus Buljjyk16. HyperglycemiaStatus Acute18. T1-T2 SUBACUTE FRACTUREStatus Acute19. Anemia [...] essential hypertension Qualified Code: I10 - Essential(primary) oxmodmmbypuf55. CKD (chronic kidney disease)Status ChronicA&PStable continue to [...] this patient at this time. Wewill await [facility] short-term rehab bed. This plan is the patient's wishes.Resuscitation status Full codeResuscitation status Full codeAdditional NotesConsiderations to discontinuing her triple-lumen catheter should be given at 14days. Triple-lumen was inserted 05/18/2020. Hopefully we will discontinue thistomorrow if she is not.DATE SIGNED: 05/31/20 Electronically SignedTIME SIGNED: 1508 CR TASHA FAJARDO Name Value Range Interpretation Code Description Data Rosa rce(s) Supporting Document(s) ID Date Data Source [id number] 05/31/2020 03:10:00 PM EDT [facility] Name Value Range Interpretation Code Description Data Rosa rce(s) Supporting Document(s) FGLU 210 mg/dL 70-110 [facility] ID Date Data Source [id number] 05/31/2020 10:22:00 AM EDT [facility] COM[facility] TO [facility]: off am labs please Name Value Range Interpretation Code Description Data Rosa rce(s) Supporting Document(s) RETIC % 4.56 % 0.5-2.7 [facility] RETIC ABS. # 0.11 x10E6/uL 0.02-0.15 [facility] IMM. [facility] FRAC 16.00 % 15-20 [facility] HEMO 33.9 pg 29-35 [facility] ID Date Data Source [id number] 05/31/2020 09:15:00 AM EDT [facility] COMMENTS TO LAB: off am labs please Name Value Range Interpretation Code Description Data Rosa rce(s) Supporting Document(s) SUZY 163.6 ng/mL 8.0-252.0 [facility] ID Date Data Source [id number] 05/31/2020 08:32:00 AM EDT [facility] COM[facility] TO [facility]: off am labs please Name Value Range Interpretation Code Description Data Rosa rce(s) Supporting Document(s) FE 62 ug/dL 42-175 [facility] Patients treated with metal-binding drug s(i.e. Deferoxamine) may have depressed iron values aschelated iron may not properly react in the iron assay. UNBOUND IRON BC 127 ug/dL 130-375 [facility] TOTAL IRON BC 189.0 ug/dL 250-400 [facility] % IRON SAT. 32.8 % 30-35 [facility] ID Date Data Source [id number] 05/31/2020 09:20:00 AM EDT [facility] Name Value Range Interpretation Code Description Data Rosa rce(s) Supporting Document(s) FGLU 300 mg/dL 70-110 [facility] ID Date Data Source [id number] 06/01/2020 07:46:00 PM EDT [facility] Name Value Range Interpretation Code Description Data Rosa rce(s) Supporting Document(s) [id number] TRANSFUSED PRODUCT: PACKED CELLS CO UNT: 2 [facility] ID Date Data Source [id number] 06/01/2020 07:46:00 PM EDT [facility] *Clinically Significant Acute Blood [place] s N *Hgb < or = to 7.0g/dL or Hct < or = to 21% N *Hgb < 8.0g/dL or Hct < 24% and PT Hemodynamically Unstable N *Hgb < 8.0 for Anemia and an Acute IA or Unstable Angina Y *Hgb < 9.0g/dL with Chronic Transfusion Therapy N *Maximum Blood Order Schedule N *Other (must indicate reason for transfusion if not above): anemia w/ CAD, COPDIrradiated? NCMV Negative? NTransfuse 2units over 3UNIT NUMBER: [id number]: YPRODUCT: LEUKO REDUCED RED BLOOD CELLSSOURCE: [facility] Save22 [facility] TYPE: A NEGATIVEVOLUME: 283MLCROSSMATCH COMPONENTS:00UNIT NUMBER: [id number]: YPRODUCT: LEUKO REDUCED RED BLOOD CELLSSOURCE: [facility] TYPE: A NEGATIVEVOLUME: 309MLCROSSMATCH COMPONENTS:00 Name Value Range Interpretation Code Description Data Rosa rce(s) Supporting Document(s) ID Date Data Source [id number] 06/01/2020 07:46:00 PM EDT [facility] *Clinically Significant Acute Blood [place] N *Hgb < or = to 7.0g/dL or Hct < or = to 21% N *Hgb < 8.0g/dL or Hct < 24% and PT Hemodynamically Unstable N *Hgb < 8.0 for Anemia and an Acute IA or Unstable Angina Y *Hgb < 9.0g/dL with Chronic Transfusion Therapy N *Maximum Blood Order Schedule N *Other (must indicate reason for transfusion if not above): anemia w/ CAD, COPDIrradiated? NCMV Negative? NTransfuse 2units over 3 Name Value Range Interpretation Code Description Data Rosa rce(s) Supporting Document(s) ANTIBODY ID ANTI D N [facility] CAN NOT RULE OUT C AND E ID Date Data Source [id number] 06/01/2020 07:46:00 PM EDT [facility] *Clinically Significant Acute Blood [place] N *Hgb < or = to 7.0g/dL or Hct < or = to 21% N *Hgb < 8.0g/dL or Hct < 24% and PT Hemodynamically Unstable N *Hgb < 8.0 for Anemia and an Acute IA or Unstable Angina Y *Hgb < 9.0g/dL with Chronic Transfusion Therapy N *Maximum Blood Order Schedule N *Other (must indicate reason for transfusion if not above): anemia w/ CAD, COPDIrradiated? NCMV Negative? NTransfuse 2units over 3 Name Value Range Interpretation Code Description Data Rosa rce(s) Supporting Document(s) BLOOD TYPE AB NEGATIVE N [facility] ANTIBODY SCREEN POSITIVE N [facility] al ID Date Data Source [id number] 05/31/2020 09:35:00 AM EDT [facility] Name Value Range Interpretation Code Description Data Rosa rce(s) Supporting Document(s) DATIgG NEGATIVE NEGATIVE [facility] ID Date Data Source [id number] 05/31/2020 06:49:00 AM EDT [facility] jer Name Value Range Interpretation Code Description Data Rosa rce(s) Supporting Document(s) MAGNESIUM 2.1 mg/dL 1.6-2.6 [facility] ID Date Data Source [id number] 05/31/2020 06:49:00 AM EDT [facility] jer Name Value Range Interpretation Code Description Data Rosa rce(s) Supporting Document(s) GLU 224 mg/dL 70-110 H [facility] Patients taking Sulfasalazine may have f alsely depressedGlucose levels. Patients taking Sulfapyridine may havefalsely elevated Glucose levels. Patients should be drawnfor Glucose before the initial administration of eitherdrug. BUN 27 mg/dL 7-23 H [facility] CRE 1.120 mg/dL 0.500-1.300 [facility] GFR 51 mL/min [facility] CHLORIDE 110 mmol/L 99-110 [facility] NA 143 mmol/L 136-147 [facility] POTASSIUM 4.5 mmol/L 3.5-5.1 [facility] TCO2 29 mmol/L 20-33 [facility] ANION GAP 8.5 10.0-20.0 L [facility] CA 8.2 mg/dL 8.3-10.7 [facility] ALKALINE PHOS 159 U/L 45-117 H [facility] TP 5.1 g/dL 6.0-7.8 [facility] ALB 2.1 g/dL 3.5-5.0 [facility] ESRD Dialysis patient Albumin reference range: 2.9-4.4 g/dL GL 3.0 g/dL 2.3-3.5 [facility] A/G 0.7 1.0-2.5 L [facility] T. BILIRUBIN 0.3 mg/dL 0.1-1.1 [facility] The Dimension [place] Total Bilirubin is n ot recommended forpatients undergoing treatment with eltrombopag (Promacta)due to the potential for falsely elevated results. ALTI 26 U/L 6-54 [facility] Patients taking Sulfasalazine and/or Sul fapyridine may havefalsely depressed ALT levels. Patients should be drawn forALT before the initial administration of either drug. AST 18 U/L 6-38 N [facility] Patients taking Sulfasalazine and/or Sul fapyridine may havefalsely depressed AST levels. Patients should be drawn forAST before the initial administration of either drug. ID Date Data Source [id number] 05/31/2020 06:27:00 AM EDT [facility] Name Value Range Interpretation Code Description Data Rosa rce(s) Supporting Document(s) WBC 10.61 x10E3/uL 4.0-10.5 [facility] RBC 2.48 x10E6/uL 4.20-5.40 L [facility] Hemoglobin 7.6 g/dL 12.0-16.0 L [facility] Hematocrit 24.1 % 37.0-47.0 L [facility] MCV 97.2 fL 81.0-99.0 [facility] MCH 30.6 pg 27.0-31.0 [facility] MCHC 31.5 g/dL 32.7-35.6 L [facility] RDW 16.6 % 11.5-14.0 [facility] Platelet count 167 x10E3/uL 150-450 N [facility] MPV 10.0 fl 6.9-9.5 [facility] Neutrophils 84.1 % 34-64 [facility] Lymphocytes 8.2 % 25-45 L [facility] Monocytes 5.8 % 1.7-10.6 N [facility] Eosinophils 0.8 % 0.4-7.0 N [facility] Basophils 0.3 % 0.1-2.0 N [facility] Imm. Gran. 0.8 % 0.1-2.0 N [facility] Abs. Neutro. 8.92 x10E3/uL 1.2-7.6 [facility] Abs. Lymph. 0.87 x10E3/uL 1.0-3.5 [facility] Abs. Mobile. 0.62 x10E3/uL 0.1-1.0 [facility] Abs. Eosin. 0.09 x10E3/uL 0.1-0.7 [facility] Abs. Baso. 0.03 x10E3/uL 0.0-0.1 [facility] l Abs. Imm. Gran. 0.08 x10E3/uL 0.0-0.1 [facility] spital ANRBC% 0 % 0 [facility] ID Date Data Source [id number] 05/31/2020 01:23:00 AM EDT [facility] Name Value Range Interpretation Code Description Data Rosa rce(s) Supporting Document(s) URINE RBC 0-2 RBCs/HPF NONE SEEN [facility] URINE WBC 11-20 WBCs/HPF NONE SEEN [facility] l A URINE CULTURE HAS BEEN ADDED TO THIS S PECIME URINE BACTERIA Few NONE SEEN [facility] URINE EPI. Few NONE SEEN [facility] URINE YEAST Many NONE SEEN [facility] A URINE CULTURE HAS BEEN ADDED TO THIS S PECIMEN ID Date Data Source [id number] 05/31/2020 01:23:00 AM EDT [facility] jer Name Value Range Interpretation Code Description Data Rosa rce(s) Supporting Document(s) URINE COLOR Yellow [facility] UAPR Cloudy [facility] UGLU Negative NEGATIVE [facility] URINE [facility]IL[facility]UBIN [facility] Negative NEGATIVE [facility] USG 1.015 1.010-1.025 [facility] UBLO Negative NEGATIVE [facility] UpH 5.5 5.0-8.0 [facility] UPRO 3+ Negative [facility] UUB 0.2 mg/dL 0.2-1.0 [facility] UNIT Negative Negative [facility] ULEU Trace Negative [facility] ID Date Data Source [id number] 05/30/2020 11:33:00 PM EDT [facility] Name Value Range Interpretation Code Description Data Rosa rce(s) Supporting Document(s) FGLU 214 mg/dL 70-110 H [facility] ID Date Data Source [id number] 05/30/2020 04:51:00 PM EDT [facility] Name Value Range Interpretation Code Description Data Rosa rce(s) Supporting Document(s) FGLU 129 mg/dL 70-110 H [facility] ID Date Data Source [id number] 05/30/2020 02:17:00 PM EDT [address] [place], [place] [address]SULLMNQC NOTEPATIENT NAME: ELA PONEC PHYSICIAN: MICHAEL WANG, MDAUTHOR: Selma Caballero. DATE: 05/18/20 MR#: [id number] NOTE DATE: 05/30/20 RM#: [id number] TIME: 1426 [...] cannula Nasal cannulaO2 Flow Rate 3L 3L 0JMgA96005/30 0930 0930 0931 0938TempPulse 82 82RespB/P 169/65 169/65 169/65 169/65 B/P MeanPulse OxO2 Delivery Nasal cannulaO2 Flow Rate 7NcT7Uqwald/OutputIntake/Output Summary 24 hours05/29 1900 05/30 0700Intake Total [...] essential hypertension Qualified Code: I10 - Essential(primary) vwyvxwmqemgu29. CKD (chronic kidney disease)Status Xhjrkay29. DiabetesStatus Dwvdgvj63. AnxietyStatus Acute13. PVD (peripheral vascular disease)Status Rblwzmk67. DebilityStatus Bequpio94. HypoalbuminemiaStatus Ykypxgm11. Polysubstance abuseStatus Ypmuiac75. HyperglycemiaStatus Acute18. T1-T2 SUBACUTE FRACTUREStatus Acute19. Anemia [...] essential hypertension Qualified Code: I10 - Essential(primary) rndqpinyuhbd95. CKD (chronic kidney disease)Status ChronicA&PStable continue to [...] this patient at this time. [facility]will [facility]. This plan is the patient's wishes.Resuscitation status Full codePlan discussed with patientCase discussed with family caseworker, nursing staffDATE SIGNED: 05/30/20 Electronically SignedTIME SIGNED: 1426 CR TASHA FAJARDO Name Value Range Interpretation Code Description Data Rosa rce(s) Supporting Document(s) ID Date Data Source [id number] 05/30/2020 11:47:00 AM [facility] Value Range Interpretation Code Description Data Rosa rce(s) Supporting Document(s) FGLU 325 mg/dL 70-110 H [facility] ID Date Data Source [id number] 05/30/2020 09:55:00 AM EDT [facility] Exam Number: [id number] OF EXAMINATIO N: 05/30/2020 9:04 EDTCHEST SINGLE [...] rce(s) Supporting Document(s) ID Date Data Source [id number] 05/30/2020 10:32:00 AM EDT [facility] Name Value Range Interpretation Code Description Data Rosa rce(s) Supporting Document(s) GLU 285 mg/dL 70-110 H [facility] Patients taking Sulfasalazine may have f alsely depressedGlucose levels. Patients taking Sulfapyridine may havefalsely elevated Glucose levels. Patients should be drawnfor Glucose before the initial administration of eitherdrug. BUN 25 mg/dL 7-23 H [facility] CRE 1.330 mg/dL 0.500-1.300 H [facility] GFR 41 mL/min [facility] CHLORIDE 108 mmol/L 99-110 [facility] NA 141 mmol/L 136-147 [facility] POTASSIUM 4.0 mmol/L 3.5-5.1 [facility] TCO2 29 mmol/L 20-33 [facility] ANION GAP 8.0 10.0-20.0 [facility] CA 8.1 mg/dL 8.3-10.7 [facility] ALKALINE PHOS 170 U/L 45-117 H [facility] TP 5.2 g/dL 6.0-7.8 [facility] ALB 2.2 g/dL 3.5-5.0 [facility] ESRD Dialysis patient Albumin reference range: 2.9-4.4 g/dL GL 3.0 g/dL 2.3-3.5 [facility] A/G 0.7 1.0-2.5 [facility] T. BILIRUBIN 0.3 mg/dL 0.1-1.1 [facility] The [employer] [place] Total Bilirubin is n ot recommended forpatients undergoing treatment with eltrombopag (Promacta)due to the potential for falsely elevated results. ALTI 30 U/L 6-54 [facility] Patients taking Sulfasalazine and/or Sul fapyridine may havefalsely depressed ALT levels. Patients should be drawn forALT before the initial administration of either drug. AST 24 U/L 6-38 [facility] Patients taking Sulfasalazine and/or Sul fapyridine may havefalsely depressed AST levels. Patients should be drawn forAST before the initial administration of either drug. ID Date Data Source [id number] 05/30/2020 06:22:00 AM EDT [facility] jer Name Value Range Interpretation Code Description Data Rosa rce(s) Supporting Document(s) FGLU 259 mg/dL 70-110 H [facility] ID Date Data Source [id number] 05/29/2020 08:39:00 PM EDT [facility] Name Value Range Interpretation Code Description Data Rosa rce(s) Supporting Document(s) FGLU 314 mg/dL 70-110 H [facility] ID Date Data Source [id number] 05/29/2020 10:01:00 PM EDT [facility] Name Value Range Interpretation Code Description Data Rosa rce(s) Supporting Document(s) FGLU 108 mg/dL 70-110 N [facility] ID Date Data Source [id number] 05/29/2020 01:50:00 PM EDT [facility] [place] [address] [id number] NOTEPATIENT NAME: ELA PONCE PHYSICIAN: MICHAEL WANG MDAUTHOR: Selma Caballero. DATE: 05/18/20 MR#: [id number] NOTE DATE: 05/29/20 RM#: [id number] TIME: 1353 [...] Ox 96O2 Delivery Nasal cannulaO2 Flow Rate [id number]/[id number] 5320 0803 0811 0819Temp 98.5 97.7Pulse 85 92 90 90Resp 17 17B/P 165/75 161/75 187/87 187/87B/P MeanPulse Ox 95 90O2 Delivery Nasal cannulaO2 Flow Rate 0LlE93705/29 0825TempPulseRespB/P 187/87 187/87B/P MeanPulse OxO2 DeliveryO2 Flow SrlmAxF2Bwijor/OutputIntake/Output Summary 24 hours05/28 1900 05/29 0700Intake Total [...] Immat Gran (auto) (0.0 - 0.1 Cancelled 0.63h41I9/uL)Absolute Neuts (auto) (1.2 - 7.6 Cancelled 11.00 Hx10E3/uL)Absolute Lymphs (auto) (1.0 - 3.5 Cancelled 0.92 Lx10E3/uL)Absolute Monos (auto) (0.1 - 1.0 Cancelled 0.78y56D2/uL)Absolute Eos (auto) (0.1 - 0.7 Cancelled 0.69a24B3/uL)Absolute Basos (auto) (0.0 - 0.1 Cancelled 0.55w80R1/uL)Nucleated RBC % (auto) (0 %) 004/371351IdrernzkuIAM Glucose (70 - 110 mg/dL) 242 HResults [...] essential hypertension Qualified Code: I10 - Essential(primary) hobgoqqnnzpt87. CKD (chronic kidney disease)Status Slzqcij10. DiabetesStatus Tbeeotp97. AnxietyStatus Acute13. PVD (peripheral vascular disease)Status Yzepyhk82. DebilityStatus Daysecq95. HypoalbuminemiaStatus Copogck77. Polysubstance abuseStatus Ezjplsi78. HyperglycemiaStatus Acute18. T1-T2 SUBACUTE FRACTUREStatus Acute19. Anemia [...] essential hypertension Qualified Code: I10 - Essential(primary) zzanpmpewbyi65. CKD (chronic kidney disease)Status ChronicA&PStable continue to [...] chronic steroid useTime spent 35 minutesDischarge to [facility] versus discharged home if cleared by PTtomorrow.Resuscitation status Full codePlan discussed with patient, sonCase discussed with family caseworker, nursing staffDATE SIGNED: 05/29/20 Electronically SignedTIME SIGNED: 3923 CR FAJARDO Name Value Range Interpretation Code Description Data Rosa rce(s) Supporting Document(s) ID Date Data Source [id number] 05/29/2020 01:29:00 PM EDT [facility] Name Value Range Interpretation Code Description Data Rosa rce(s) Supporting Document(s) FGLU 242 mg/dL 70-110 H [facility] ID Date Data Source [id number] 05/29/2020 06:10:00 AM EDT [facility] Name Value Range Interpretation Code Description Data Rosa rce(s) Supporting Document(s) FGLU 259 mg/dL 70-110 H [facility] ID Date Data Source [id number] 05/29/2020 05:58:00 AM EDT [facility] jer Name Value Range Interpretation Code Description Data Rosa rce(s) Supporting Document(s) C-REACTIVE PROT 5.98 mg/dL 0.00-0.49 H [facility] ID Date Data Source [id number] 05/29/2020 05:58:00 AM EDT [facility] Name Value Range Interpretation Code Description Data Rosa rce(s) Supporting Document(s) MAGNESIUM 2.1 mg/dL 1.6-2.6 N [facility] ID Date Data Source [id number] 05/29/2020 05:58:00 AM EDT [facility] Name Value Range Interpretation Code Description Data Rosa rce(s) Supporting Document(s) GLU 204 mg/dL 70-110 H [facility] Patients taking Sulfasalazine may have f alsely depressedGlucose levels. Patients taking Sulfapyridine may havefalsely elevated Glucose levels. Patients should be drawnfor Glucose before the initial administration of eitherdrug. BUN 19 mg/dL 7-23 [facility] CRE 1.140 mg/dL 0.500-1.300 [facility] GFR 50 mL/min [facility] CHLORIDE 109 mmol/L 99-110 [facility] NA 143 mmol/L 136-147 [facility] POTASSIUM 4.3 mmol/L 3.5-5.1 [facility] TCO2 28 mmol/L 20-33 [facility] ANION GAP 10.3 10.0-20.0 [facility] CA 8.1 mg/dL 8.3-10.7 [facility] ALKALINE PHOS 143 U/L 45-117 H [facility] TP 5.1 g/dL 6.0-7.8 [facility] ALB 2.3 g/dL 3.5-5.0 [facility] ESRD Dialysis patient Albumin reference range: 2.9-4.4 g/dL GL 2.8 g/dL 2.3-3.5 [facility] A/G 0.8 1.0-2.5 [facility] T. BILIRUBIN 0.4 mg/dL 0.1-1.1 [facility] [employer] [place] Total Bilirubin is n ot recommended forpatients undergoing treatment with eltrombopag (Promacta)due to the potential for falsely elevated results. ALTI 26 U/L 6-54 [facility] Patients taking Sulfasalazine and/or Sul fapyridine may havefalsely depressed ALT levels. Patients should be drawn forALT before the initial administration of either drug. AST 25 U/L 6-38 [facility] Patients taking Sulfasalazine and/or Sul fapyridine may havefalsely depressed AST levels. Patients should be drawn forAST before the initial administration of either drug. ID Date Data Source [id number] 05/29/2020 05:27:00 AM EDT [facility] Name Value Range Interpretation Code Description Data Rosa rce(s) Supporting Document(s) WBC 12.97 x10E3/uL 4.0-10.5 [facility] RBC 2.71 x10E6/uL 4.20-5.40 L [facility] Hemoglobin 8.3 g/dL 12.0-16.0 L [facility] Hematocrit 25.4 % 37.0-47.0 L [facility] MCV 93.7 fL 81.0-99.0 N [facility] MCH 30.6 pg 27.0-31.0 N [facility] MCHC 32.7 g/dL 32.7-35.6 N [facility] RDW 15.9 % 11.5-14.0 H [facility] Platelet count 157 x10E3/uL 150-450 N [facility] MPV 9.8 fl 6.9-9.5 H [facility] Neutrophils 84.9 % 34-64 [facility] Lymphocytes 7.1 % 25-45 L [facility] Monocytes 6.2 % 1.7-10.6 [facility] Eosinophils 0.8 % 0.4-7.0 N [facility] Basophils 0.3 % 0.1-2.0 N [facility] Imm. Gran. 0.7 % 0.1-2.0 N [facility] Abs. Neutro. 11.00 x10E3/uL 1.2-7.6 [facility] Abs. Lymph. 0.92 x10E3/uL 1.0-3.5 [facility] Abs. Mobile. 0.81 x10E3/uL 0.1-1.0 [facility] Abs. Eosin. 0.11 x10E3/uL 0.1-0.7 [facility] Abs. Baso. 0.04 x10E3/uL 0.0-0.1 [facility] Abs. Imm. Gran. 0.09 x10E3/uL 0.0-0.1 N [facility] spital ANRBC% 0 % 0 [facility] ID Date Data Source [id number] 05/28/2020 11:36:00 PM EDT [facility] Name Value Range Interpretation Code Description Data Rosa rce(s) Supporting Document(s) FGLU 166 mg/dL 70-110 H [facility] ID Date Data Source [id number] 05/28/2020 08:24:00 PM EDT [facility] Name Value Range Interpretation Code Description Data Rosa rce(s) Supporting Document(s) FGLU 72 mg/dL 70-110 N [facility] ID Date Data Source [id number] 05/28/2020 12:45:00 PM EDT [facility] [place] [address] [id number] NOTEPATIENT NAME: ELA PONCE PHYSICIAN: MICHAEL WANG, MDAUTHOR: Selma Caballero. DATE: 05/18/20 MR#: [id number] NOTE DATE: 05/28/20 RM#: [id number] TIME: 1251 [...] cannula Nasal cannulaO2 Flow Rate 2 LITERS [id number]/[id number] 0397 0815TempPulse 83 83RespB/P 175/78 175/78 175/78B/P MeanPulse OxO2 DeliveryO2 Flow YokoGeQ9Tljidx/OutputIntake/Output Summary 24 hours17 1900 04/18 0700Intake Total [...] neutral, no hallucinationsResultsLaboratory DataRecent Labs-24 hours05/27 05/28 04/613567 3848 0521ChemistrySodium (136 - 147 mmol/L) 144Potassium (3.5 [...] essential hypertension Qualified Code: I10 - Essential(primary) kfzsbrjadvin57. CKD (chronic kidney disease)Status Thebvjk49. DiabetesStatus Bbsavay54. AnxietyStatus Acute13. PVD (peripheral vascular disease)Status Taysael89. DebilityStatus Bindrdm89. HypoalbuminemiaStatus Xwxjjsm10. Polysubstance abuseStatus Fvhezwm28. HyperglycemiaStatus Acute18. T1-T2 SUBACUTE FRACTUREStatus Acute19. Anemia [...] essential hypertension Qualified Code: I10 - Essential(primary) lqgkbnqurbhf90. CKD (chronic kidney disease)Status ChronicA&PStable continue to monitor as needed.11. DiabetesStatus ChronicA&PContinue long-acting insulin as well as a CHS with sliding scale coverage.Taper steroids. Blood sugars have not been optimal and will increase long-acting insulin to 10 units subcu daily.12. AnxietyStatus AcuteA&PContinue BuSpar benzodiazepine.13. PVD (peripheral vascular disease)Status Herd Tester Yecenia&PContinue Plavix and statin. Note that patient [...] chronic steroid useTime spent 35 minutesDischarge to [facility] versus discharged home if cleared by PTtomorrow.Resuscitation status Full codePlan discussed with patient, sonCase discussed with family caseworker, nursing staffDATE SIGNED: 05/28/20 Electronically SignedTIME SIGNED: 1251 CR [employer] Name Value Range Interpretation Code Description Data Rosa rce(s) Supporting Document(s) ID Date Data Source [id number] 05/28/2020 01:19:00 PM EDT [facility] Name Value Range Interpretation Code Description Data Rosa rce(s) Supporting Document(s) FGLU 125 mg/dL 70-110 H [facility] ID Date Data Source [id number] 05/28/2020 08:34:00 AM EDT [facility] Name Value Range Interpretation Code Description Data Rosa rce(s) Supporting Document(s) FGLU 232 mg/dL 70-110 [facility] ID Date Data Source [id number] 05/28/2020 06:17:00 AM EDT [facility] Name Value Range Interpretation Code Description Data Rosa rce(s) Supporting Document(s) MAGNESIUM 2.0 mg/dL 1.6-2.6 N [facility] ID Date Data Source [id number] 05/28/2020 06:17:00 AM EDT [facility] Name Value Range Interpretation Code Description Data Rosa rce(s) Supporting Document(s) C-REACTIVE PROT 3.70 mg/dL 0.00-0.49 [facility] ID Date Data Source [id number] 05/28/2020 06:17:00 AM EDT [facility] Name Value Range Interpretation Code Description Data Rosa rce(s) Supporting Document(s) GLU 179 mg/dL 70-110 [facility] Patients taking Sulfasalazine may have f alsely depressedGlucose levels. Patients taking Sulfapyridine may havefalsely elevated Glucose levels. Patients should be drawnfor Glucose before the initial administration of eitherdrug. BUN 21 mg/dL 7-23 [facility] CRE 0.956 mg/dL 0.500-1.300 [facility] GFR > 60 mL/min [facility] CHLORIDE 109 mmol/L 99-110 [facility] NA 144 mmol/L 136-147 [facility] POTASSIUM 4.0 mmol/L 3.5-5.1 [facility] TCO2 28 mmol/L 20-33 [facility] ANION GAP 11.0 10.0-20.0 [facility] CA 8.1 mg/dL 8.3-10.7 [facility] ALKALINE PHOS 149 U/L 45-117 [facility] TP 5.2 g/dL 6.0-7.8 [facility] ALB 2.4 g/dL 3.5-5.0 [facility] ESRD Dialysis patient Albumin reference range: 2.9-4.4 g/dL GL 2.8 g/dL 2.3-3.5 [facility] A/G 0.9 1.0-2.5 [facility] T. BILIRUBIN 0.3 mg/dL 0.1-1.1 [facility] [employer] [place] Total Bilirubin is n ot recommended forpatients undergoing treatment with eltrombopag (Promacta)due to the potential for falsely elevated results. ALTI 30 U/L 6-54 [facility] Patients taking Sulfasalazine and/or Sul fapyridine may havefalsely depressed ALT levels. Patients should be drawn forALT before the initial administration of either drug. AST 26 U/L 6-38 [facility] Patients taking Sulfasalazine and/or Sul fapyridine may havefalsely depressed AST levels. Patients should be drawn forAST before the initial administration of either drug. ID Date Data Source [id number] 05/28/2020 05:00:00 AM EDT [facility] Name Value Range Interpretation Code Description Data Rosa rce(s) Supporting Document(s) WBC 13.52 x10E3/uL 4.0-10.5 [facility] RBC 2.86 x10E6/uL 4.20-5.40 [facility] Hemoglobin 8.7 g/dL 12.0-16.0 [facility] Hematocrit 26.5 % 37.0-47.0 [facility] MCV 92.7 fL 81.0-99.0 [facility] MCH 30.4 pg 27.0-31.0 [facility] MCHC 32.8 g/dL 32.7-35.6 [facility] RDW 15.8 % 11.5-14.0 [facility] Platelet count 157 x10E3/uL 150-450 [facility] MPV 9.8 fl 6.9-9.5 [facility] Neutrophils 84.8 % 34-64 [facility] Lymphocytes 5.8 % 25-45 L [facility] Monocytes 6.9 % 1.7-10.6 N [facility] Eosinophils 0.8 % 0.4-7.0 [facility] Basophils 0.1 % 0.1-2.0 [facility] Imm. Gran. 1.6 % 0.1-2.0 [facility] Abs. Neutro. 11.46 x10E3/uL 1.2-7.6 [facility] Abs. Lymph. 0.79 x10E3/uL 1.0-3.5 [facility] Abs. Mobile. 0.93 x10E3/uL 0.1-1.0 [facility] Abs. Eosin. 0.11 x10E3/uL 0.1-0.7 [facility] Abs. Baso. 0.02 x10E3/uL 0.0-0.1 [facility] Abs. Imm. Gran. 0.21 x10E3/uL 0.0-0.1 [facility] ANRBC% 0.1 % 0 [facility] ID Date Data Source [id number] 05/27/2020 09:58:00 PM EDT [facility] Name Value Range Interpretation Code Description Data Rosa rce(s) Supporting Document(s) FGLU 249 mg/dL 70-110 [facility] ID Date Data Source [id number] 05/27/2020 01:53:00 PM EDT [facility] [address] [id number] NOTEPATIENT NAME: ELA PONCE BATTENKEIKO PHYSICIAN: MICHAEL WANG, DERECKUTHOR: Selma Caballero. DATE: 05/18/20 MR#: [id number] NOTE DATE: 05/27/20 RM#: [id number] TIME: 1356 : 07/21/46SubjectiveEvents Since Last EntryPatient seen and examined today. Chart reviewed. Patient was having somediarrhea last night but received cathartics yesterday. She has only had 2 BMsso far today. She feels fine otherwise. No other complaints. B vitaminswithin normal limits. Hemoglobin improved. No new development. Awaiting [facility]. Discussed plan of care with son at the patient's request.Review of SystemsSystems reviewed and negative Constitutional, Integumentary, Eyes, ENT,Respiratory, Cardiovascular, , Musculoskeletal, Aldo, Endocrine, Neurology,Psych, Allergy/ImmunologyGastrointestinalReports: diarrhea (Improved).ObjectiveVital SignsVital Signs-24 HRS05/26191480 6259 2225 0600Temp 98.3 98.6Pulse 90 89 90Resp 16 16B/P 164/75 164/75 160/88B/P MeanPulse Ox 95 94O2 Delivery Nasal cannula Nasal cannula Nasal cannulaO2 Flow Rate 3L 2 3NTiX61405/[id number] 2146 0842 0842TempPulse 96 96RespB/P 149/72 149/72 149/72B/P MeanPulse OxO2 Delivery Nasal cannulaO2 Flow Rate 2 YUCSMHLeZ0Eflekp/OutputIntake/Output Summary 24 hours05/26 1900 05/27 0700Intake Total [...] x10E3/uL) 0.02Nucleated RBC % (auto) (0 %) 004/975402ZaupexyltSmnwtfk B12 (193 - 986 pg/mL) 677.0Folic Acid [...] essential hypertension Qualified Code: I10 - Essential(primary) hvzhxxnrribj71. CKD (chronic kidney disease)Status Niedewt78. DiabetesStatus Owtjqgo87. AnxietyStatus Acute13. PVD (peripheral vascular disease)Status Rehhjqi58. DebilityStatus Jqbljsl95. HypoalbuminemiaStatus Shxapwk67. Polysubstance abuseStatus Jzvtzjz34. HyperglycemiaStatus Acute18. T1-T2 SUBACUTE FRACTUREStatu s Acute19. [...] essential hypertension Qualified Code: I10 - Essential(primary) wuagybiecmmk46. CKD (chronic kidney disease)Status ChronicA&PStable continue to [...] chronic steroid useTime spent 35 minutesDis[facility].Resuscitation status Full codePlan discussed with patient, sonCase discussed with family caseworker, nursing staffDATE SIGNED: 05/27/20 Electronically SignedTIME SIGNED: 9017 CR FAJARDO Name Value Range Interpretation Code Description Data Rosa rce(s) Supporting Document(s) ID Date Data Source [id number] 05/28/2020 07:03:00 AM EDT [facility] Name Value Range Interpretation Code Description Data Rosa rce(s) Supporting Document(s) FGLU 213 mg/dL 70-110 [facility] ID Date Data Source [id number] 05/27/2020 09:56:00 AM EDT [facility] jer Name Value Range Interpretation Code Description Data Rosa rce(s) Supporting Document(s) FOLATE 20.9 ng/mL 3.1-17.5 [facility] ID Date Data Source [id number] 05/27/2020 09:56:00 AM EDT [facility] Name Value Range Interpretation Code Description Data Rosa rce(s) Supporting Document(s) VITAMIN B12 677.0 pg/mL 193-986 [facility] ID Date Data Source [id number] 05/27/2020 07:26:00 AM EDT [facility] Name Value Range Interpretation Code Description Data Rosa rce(s) Supporting Document(s) WBC 12.20 x10E3/uL 4.0-10.5 [facility] RBC 2.96 x10E6/uL 4.20-5.40 [facility] Hemoglobin 9.0 g/dL 12.0-16.0 [facility] Hematocrit 26.9 % 37.0-47.0 L [facility] MCV 90.9 fL 81.0-99.0 [facility] MCH 30.4 pg 27.0-31.0 [facility] MCHC 33.5 g/dL 32.7-35.6 [facility] RDW 15.6 % 11.5-14.0 [facility] Platelet count 153 x10E3/uL 150-450 [facility] MPV 9.8 fl 6.9-9.5 [facility] Neutrophils 85.1 % 34-64 [facility] Lymphocytes 5.9 % 25-45 L [facility] Monocytes 6.6 % 1.7-10.6 [facility] Eosinophils 0.8 % 0.4-7.0 [facility] Basophils 0.2 % 0.1-2.0 [facility] Imm. Gran. 1.4 % 0.1-2.0 [facility] Abs. Neutro. 10.39 x10E3/uL 1.2-7.6 [facility] Abs. Lymph. 0.72 x10E3/uL 1.0-3.5 [facility] Abs. Mobile. 0.80 x10E3/uL 0.1-1.0 [facility] Abs. Eosin. 0.10 x10E3/uL 0.1-0.7 [facility] Abs. Baso. 0.02 x10E3/uL 0.0-0.1 [facility] Abs. Imm. Gran. 0.17 x10E3/uL 0.0-0.1 [facility] ANRBC% 0 % 0 [facility] ID Date Data Source [id number] 05/27/2020 07:23:00 AM EDT [facility] jer Name Value Range Interpretation Code Description Data Rosa rce(s) Supporting Document(s) C-REACTIVE PROT 5.35 mg/dL 0.00-0.49 H [facility] ID Date Data Source [id number] 05/27/2020 07:23:00 AM EDT [facility] jer Name Value Range Interpretation Code Description Data Rosa rce(s) Supporting Document(s) MAGNESIUM 2.1 mg/dL 1.6-2.6 [facility] ID Date Data Source [id number] 05/27/2020 07:23:00 AM EDT [facility] Name Value Range Interpretation Code Description Data Rosa rce(s) Supporting Document(s) GLU 170 mg/dL 70-110 [facility] Patients taking Sulfasalazine may have f alsely depressedGlucose levels. Patients taking Sulfapyridine may havefalsely elevated Glucose levels. Patients should be drawnfor Glucose before the initial administration of eitherdrug. BUN 19 mg/dL 7-23 [facility] CRE 0.826 mg/dL 0.500-1.300 [facility] GFR > 60 mL/min [facility] CHLORIDE 106 mmol/L 99-110 [facility] NA 142 mmol/L 136-147 [facility] POTASSIUM 3.7 mmol/L 3.5-5.1 [facility] TCO2 28 mmol/L 20-33 [facility] ANION GAP 11.7 10.0-20.0 [facility] CA 8.5 mg/dL 8.3-10.7 [facility] ALKALINE PHOS 141 U/L 45-117 [facility] TP 5.5 g/dL 6.0-7.8 [facility] ALB 2.4 g/dL 3.5-5.0 [facility] ESRD Dialysis patient Albumin reference range: 2.9-4.4 g/dL GL 3.1 g/dL 2.3-3.5 [facility] A/G 0.8 1.0-2.5 [facility] T. BILIRUBIN 0.5 mg/dL 0.1-1.1 [facility] The [facility] [place] Total Bilirubin is n ot recommended forpatients undergoing treatment with eltrombopag (Promacta)due to the potential for falsely elevated results. ALTI 33 U/L 6-54 [facility] Patients taking Sulfasalazine and/or Sul fapyridine may havefalsely depressed ALT levels. Patients should be drawn forALT before the initial administration of either drug. AST 29 U/L 6-38 [facility] Patients taking Sulfasalazine and/or Sul fapyridine may havefalsely depressed AST levels. Patients should be drawn forAST before the initial administration of either drug. ID Date Data Source [id number] 05/27/2020 07:35:00 AM EDT [facility] Name Value Range Interpretation Code Description Data Rosa rce(s) Supporting Document(s) FGLU 164 mg/dL 70-110 [facility] ID Date Data Source [id number] 05/27/2020 08:30:00 AM EDT [facility] Name Value Range Interpretation Code Description Data Rosa rce(s) Supporting Document(s) FGLU 253 mg/dL 70-110 [facility] ID Date Data Source [id number] 05/26/2020 07:38:00 PM EDT [facility] Name Value Range Interpretation Code Description Data Rosa rce(s) Supporting Document(s) FGLU 107 mg/dL 70-110 [facility] ID Date Data Source [id number] 05/26/2020 02:50:00 PM EDT [facility] Name Value Range Interpretation Code Description Data Rosa rce(s) Supporting Document(s) FGLU 210 mg/dL 70-110 [facility] ID Date Data Source [id number] 05/26/2020 10:58:00 AM EDT [facility] [address] [id number] NOTEPATIENT NAME: ELA PONCE PHYSICIAN: MICHAEL WANG MDAUTHOR: Selma Caballero. DATE: 05/18/20 MR#: [id number] NOTE DATE: 05/26/20 RM#: [id number] TIME: 1112 : 45SubjectiveEvents Since Last EntryPatient seen and examined today. Chart reviewed. [facility] and antibiotic [...] Musculoskeletal, Aldo, Endocrine,Neurology, Psych, Allergy/ImmunologyObjectiveVital SignsVital Signs-24 HRS05/25589590 1011 1800 2027 2102Temp 99.5 97.6 98.0Pulse 94 86 95 87 85Resp 15 16 17B/P 172/69 168/69 149/71 163/76 163/73B/P MeanPulse Ox 96 96 97O2 Delivery Nasal cannula Nasal cannula Nasal cannulaO2 Flow Rate 1L 3L 4XKbE98705/25351586 7887 0521 0908 0908Temp 97.9 97.7Pulse 73 79 79Resp 18 17B/P 163/78 161/77 161/77 161/77B/P MeanPulse Ox 97 94O2 Delivery Nasal cannula Nasal cannula Nasal cannulaO2 Flow Rate 2 2 8MuA84005/26440792 0953Temp 98.0Pulse 79 86Resp 20B/P 161/77 164/78B/P MeanPulse Ox 97O2 Delivery Nasal cannulaO2 Flow Rate 8INwE2Weleyp/OutputIntake/Output Summary 24 hours05/25 1900 05/26 0700Intake Total [...] Status mood neutral, no hallucinationsResultsLaboratory DataRecent Labs-24 hours05/25183175 5277 1755 2022ChemistryPOC Glucose (70 - 110 mg/dL) 175 H 162 H 166 HHematologyHgb (12.0 - 16.0 g/dL) 8.9 LHct (37.0 - 47.0 %) 26.3 L05/26499879 0538ChemistrySodium (136 - 147 mmol/L) 144Potassium (3.5 [...] essential hypertension Qualified Code: I10 - Essential(primary) xcawrzipiflw74. CKD (chronic kidney disease)Status ChronicA&PStable continue to [...] chronic steroid useTime spent 30 minutesDis[facility].Resuscitation status Full codePlan discussed with patientCase discussed with family caseworker, nursing staffDATE SIGNED: 05/26/20 Electronically SignedTIME SIGNED: 1112 CR FAJARDO Name Value Range Interpretation Code Description Data Rosa rce(s) Supporting Document(s) ID Date Data Source [id number] 05/26/2020 07:13:00 AM EDT [facility] jer Name Value Range Interpretation Code Description Data Rosa rce(s) Supporting Document(s) FGLU 127 mg/dL 70-110 [facility] ID Date Data Source [id number] 05/26/2020 06:31:00 AM EDT [facility] jer Name Value Range Interpretation Code Description Data Rosa rce(s) Supporting Document(s) WBC 11.71 x10E3/uL 4.0-10.5 [facility] RBC 2.74 x10E6/uL 4.20-5.40 [facility] Hemoglobin 8.3 g/dL 12.0-16.0 [facility] Hematocrit 24.8 % 37.0-47.0 [facility] MCV 90.5 fL 81.0-99.0 [facility] MCH 30.3 pg 27.0-31.0 [facility] MCHC 33.5 g/dL 32.7-35.6 [facility] RDW 15.7 % 11.5-14.0 [facility] Platelet count 142 x10E3/uL 150-450 L [facility] ital MPV 9.4 fl 6.9-9.5 [facility] Neutrophils 81.0 % 34-64 [facility] Lymphocytes 8.5 % 25-45 [facility] Monocytes 7.8 % 1.7-10.6 [facility] Eosinophils 1.1 % 0.4-7.0 [facility] Basophils 0.2 % 0.1-2.0 [facility] Imm. Gran. 1.4 % 0.1-2.0 [facility] Abs. Neutro. 9.50 x10E3/uL 1.2-7.6 [facility] Abs. Lymph. 0.99 x10E3/uL 1.0-3.5 [facility] Abs. Mobile. 0.91 x10E3/uL 0.1-1.0 [facility] Abs. Eosin. 0.13 x10E3/uL 0.1-0.7 [facility] Abs. Baso. 0.02 x10E3/uL 0.0-0.1 [facility] Imm. Gran. 0.16 x10E3/uL 0.0-0.1 [facility] spital ANRBC% 0 % 0 [facility] ID Date Data Source [id number] 05/26/2020 06:28:00 AM EDT [facility] Name Value Range Interpretation Code Description Data Rosa rce(s) Supporting Document(s) MAGNESIUM 1.9 mg/dL 1.6-2.6 [facility] ID Date Data Source [id number] 05/26/2020 06:28:00 AM EDT [facility] jer Name Value Range Interpretation Code Description Data Rosa rce(s) Supporting Document(s) GLU 116 mg/dL 70-110 [facility] Patients taking Sulfasalazine may have f alsely depressedGlucose levels. Patients taking Sulfapyridine may havefalsely elevated Glucose levels. Patients should be drawnfor Glucose before the initial administration of eitherdrug. BUN 17 mg/dL 7-23 [facility] CRE 0.891 mg/dL 0.500-1.300 [facility] GFR > 60 mL/min [facility] CHLORIDE 108 mmol/L 99-110 [facility] NA 144 mmol/L 136-147 [facility] POTASSIUM 3.7 mmol/L 3.5-5.1 [facility] TCO2 29 mmol/L 20-33 [facility] ANION GAP 10.7 10.0-20.0 [facility] CA 8.2 mg/dL 8.3-10.7 [facility] ALKALINE PHOS 129 U/L 45-117 [facility] TP 5.1 g/dL 6.0-7.8 [facility] ALB 2.2 g/dL 3.5-5.0 [facility] ESRD Dialysis patient Albumin reference range: 2.9-4.4 g/dL GL 2.9 g/dL 2.3-3.5 [facility] A/G 0.8 1.0-2.5 [facility] T. BILIRUBIN 0.4 mg/dL 0.1-1.1 [facility] The [employer] [place] Total Bilirubin is n ot recommended forpatients undergoing treatment with eltrombopag (Promacta)due to the potential for falsely elevated results. ALTI 28 U/L 6-54 [facility] Patients taking Sulfasalazine and/or Sul fapyridine may havefalsely depressed ALT levels. Patients should be drawn forALT before the initial administration of either drug. AST 25 U/L 6-38 [facility] Patients taking Sulfasalazine and/or Sul fapyridine may havefalsely depressed AST levels. Patients should be drawn forAST before the initial administration of either drug. ID Date Data Source [id number] 05/26/2020 06:28:00 AM EDT [facility] Name Value Range Interpretation Code Description Data Rosa rce(s) Supporting Document(s) C-REACTIVE PROT 3.59 mg/dL 0.00-0.49 [facility] ID Date Data Source [id number] 05/25/2020 10:42:00 PM EDT [facility] Name Value Range Interpretation Code Description Data Rosa rce(s) Supporting Document(s) FGLU 166 mg/dL 70-110 [facility] ID Date Data Source [id number] 05/25/2020 06:14:00 PM EDT [facility] [address] [id number] NOTEPATIENT NAME: ELA PONCE PHYSICIAN: MICHAEL WANG, MDAUTHOR: Breezy [place], Zhang. DATE: 05/18/20 MR#: [id number] NOTE DATE: 05/25/20 RM#: [id number] TIME: 1850 [...] All otherreview of system negativeObjectiveVital SignsVital Signs-24 HRS05/24661946 8734 0202 0542 0823Temp 98.7 97.0 97.5Pulse 99 99 75 86 96Resp 18 18 18B/P 190/80 190/80 161/73 124/71 142/100B/P MeanPulse Ox 96 97 95O2 Delivery Nasal cannula Nasal cannula Nasal cannulaO2 Flow Rate 1.5 1.5 1.6BkQ87205/25025183 0271 1140 1339Temp 99.0 99.5Pulse 94 94 86Resp 16 15B/P 142/100 172/69 172/69 168/69B/P MeanPulse Ox 94 96O2 Delivery Nasal cannula Nasal cannulaO2 Flow Rate 3L 2UDeQ7Bpxifr/OutputIntake/Output Summary 24 hours05/24 1900 05/25 0700Intake Total [...] Status mood neutral, no hallucinationsResultsLaboratory DataRecent Labs-24 hours05/24406376 3282 0608 1755ChemistrySodium (136 - 147 mmol/L) 143Potassium [...] 11.71 HAbsolute Lymphs (auto) (1.0 - 3.5 1.26n95A7/uL)Absolute Monos (auto) (0.1 - 1.0 x10E3/uL) 1.03 [...] vertebral body fracture-Leukocytosis trending down. C-reactive protein ggmxkgb-Mltthx-pa blood cultures-Pain management.2. PneumoniaStatus AcuteA&PC-reactive protein improvingZosyn. [...] UTI (urinary tract infection)Status AcuteA&PTreated with Zosyn pz-Wiesuw-ep urine culture.5. HLD (hyperlipidemia)Status ChronicA&PContinue statin6. Spinal stenosisStatus ChronicA&PChronic history of spinal stenosis continue with pain management.7. DepressionStatus ChronicA&PContinue with duloxetine., BuSpar8. HypothyroidismStatus ChronicA&P-Continue with levothyroxine.9. HTN (hypertension)Status ChronicA&P-Continue with lisinopril and increase hydralazine 50 mg p.o. 3 times daily,Imdur p.o. 90md daily, added metoprolol 25 mg p.o. dailyblood pressure control-Monitor blood pressure.Hypertension type: essential hypertension Qualified Code: I10 - Essential(primary) nhxbppgsazed99. CKD (chronic kidney disease)Status ChronicA&PHistory of CKD. SU at [facility].-Monitor renal function.11. DiabetesStatus ChronicA&PComplicated with hypoglycemia and hyperglycemiaLevemir 6 units daily, continue NovoLog via protocol, close monitoring, yxuixxfedgcsk41. AnxietyStatus AcuteA&Mendoza chronic benzodiazepines. Will continue.13. PVD (peripheral vascular disease)Status ChronicA&PHistory of stent placement.Continue with Plavix, statin-Continue to monitor.14. DebilityStatus ChronicA&P-Supportive care-Consider PT/OT when patient is more alert.15. HypoalbuminemiaStatus ChronicA&PEncourage p.o. intake. Nutrition supplementation.Ensure p.o. 3 times daily.16. Polysubstance abuseStatus ChronicA&PThiamine, folic acid, multivitamin, no signs of ekjdmxaapr66. HypernatremiaStatus AcuteA&GDvpgkxlrz01. HyperglycemiaStatus AcuteA&PSecondary to steroid, will be very cautious in increasing coverage due toepisode of hypoglycemia, taper fpfocyb20. T1-T2 SUBACUTE FRACTUREStatus AcuteA&PPT, OT, fall precaution, pain medication as hfnequc48. Anemia of chronic diseaseStatus AcuteA&PWorsening anemia, no signs of bleeding, transfuse 1 unit PRBC with appropriateresponse. Will monitor, further work-up as outpatientAdditional Macah31-znjs-ucp female patient underlying medical history of COPD O2 dependent,spinal stenosis, depression, dyslipidemia, type 2 diabetes, nicotine addiction,anxiety, hypothyroidism, debility, CKD, peripheral vascular disease,hypoalbuminemia, polysubstance abuse, initially admitted to [facility] for right upper lobe pneumonia, sepsis, deconditioning with frequentfall, transferred given complains of back pain and worsening leukocytosisDVT prophylaxis Heparin subcuDisposition pending clinical improvement, potential transfer back [facility],further work-up as outpatientResuscitation status Full codePlan discussed with patient, sonCase discussed with family caseworker, nursing staffVTE ProphylaxisVTE Prophylaxis: Heparin subcu.DATE SIGNED: 05/25/20 Electronically SignedTIME SIGNED: 1850 SAAD FRIED MD Name Value Range Interpretation Code Description Data Rosa rce(s) Supporting Document(s) ID Date Data Source [id number] 05/25/2020 06:12:00 PM EDT [facility] COMMENTS TO LAB: post transfusion Name Value Range Interpretation Code Description Data Rosa rce(s) Supporting Document(s) Hemoglobin 8.9 g/dL 12.0-16.0 [facility] Hematocrit 26.3 % 37.0-47.0 [facility] ID Date Data Source [id number] 05/26/2020 02:29:00 AM EDT [facility] jer Name Value Range Interpretation Code Description Data Rosa rce(s) Supporting Document(s) FGLU 162 mg/dL 70-110 [facility] ID Date Data Source [id number] 05/25/2020 07:14:00 PM EDT [facility] Name Value Range Interpretation Code Description Data Rosa rce(s) Supporting Document(s) FGLU 175 mg/dL 70-110 [facility] ID Date Data Source [id number] 05/25/2020 10:01:00 AM EDT [facility] Name Value Range Interpretation Code Description Data Rosa rce(s) Supporting Document(s) BLOOD TYPE AB NEGATIVE [facility] ID Date Data Source [id number] 05/25/2020 02:30:00 PM EDT [facility] Name Value Range Interpretation Code Description Data Rosa rce(s) Supporting Document(s) FGLU 143 mg/dL 70-110 [facility] ID Date Data Source [id number] 05/25/2020 05:56:00 AM EDT [facility] Name Value Range Interpretation Code Description Data Rosa rce(s) Supporting Document(s) C-REACTIVE PROT 2.86 mg/dL 0.00-0.49 [facility] ID Date Data Source [id number] 05/25/2020 05:56:00 AM EDT [facility] Name Value Range Interpretation Code Description Data Rosa rce(s) Supporting Document(s) MAGNESIUM 2.0 mg/dL 1.6-2.6 [facility] ID Date Data Source [id number] 05/25/2020 05:56:00 AM EDT [facility] Name Value Range Interpretation Code Description Data Rosa rce(s) Supporting Document(s) GLU 105 mg/dL 70-110 [facility] Patients taking Sulfasalazine may have f alsely depressedGlucose levels. Patients taking Sulfapyridine may havefalsely elevated Glucose levels. Patients should be drawnfor Glucose before the initial administration of eitherdrug. BUN 19 mg/dL 7-23 [facility] CRE 0.871 mg/dL 0.500-1.300 [facility] GFR > 60 mL/min [facility] CHLORIDE 111 mmol/L 99-110 [facility] NA 143 mmol/L 136-147 [facility] POTASSIUM 3.9 mmol/L 3.5-5.1 [facility] TCO2 29 mmol/L 20-33 [facility] ANION GAP 6.9 10.0-20.0 [facility] CA 8.1 mg/dL 8.3-10.7 [facility] ALKALINE PHOS 134 U/L 45-117 [facility] TP 5.2 g/dL 6.0-7.8 [facility] ALB 2.4 g/dL 3.5-5.0 [facility] ESRD Dialysis patient Albumin reference range: 2.9-4.4 g/dL GL 2.8 g/dL 2.3-3.5 [facility] A/G 0.9 1.0-2.5 [facility] T. BILIRUBIN 0.4 mg/dL 0.1-1.1 [facility] [employer] [place] Total Bilirubin is n ot recommended forpatients undergoing treatment with eltrombopag (Promacta)due to the potential for falsely elevated results. ALTI 34 U/L 6-54 [facility] Patients taking Sulfasalazine and/or Sul fapyridine may havefalsely depressed ALT levels. Patients should be drawn forALT before the initial administration of either drug. AST 28 U/L 6-38 [facility] Patients taking Sulfasalazine and/or Sul fapyridine may havefalsely depressed AST levels. Patients should be drawn forAST before the initial administration of either drug. ID Date Data Source [id number] 05/25/2020 05:47:00 AM EDT [facility] Name Value Range Interpretation Code Description Data Rosa rce(s) Supporting Document(s) WBC 14.10 x10E3/uL 4.0-10.5 [facility] RBC 2.41 x10E6/uL 4.20-5.40 [facility] Hemoglobin 7.4 g/dL 12.0-16.0 [facility] Hematocrit 22.4 % 37.0-47.0 [facility] MCV 92.9 fL 81.0-99.0 [facility] MCH 30.7 pg 27.0-31.0 [facility] MCHC 33.0 g/dL 32.7-35.6 [facility] RDW 15.1 % 11.5-14.0 [facility] Platelet count 150 x10E3/uL 150-450 [facility] ital MPV 9.7 fl 6.9-9.5 [facility] Neutrophils 83.1 % 34-64 [facility] Lymphocytes 7.2 % 25-45 [facility] Monocytes 7.3 % 1.7-10.6 [facility] Eosinophils 0.9 % 0.4-7.0 [facility] Basophils 0.2 % 0.1-2.0 [facility] Imm. Gran. 1.3 % 0.1-2.0 [facility] Abs. Neutro. 11.71 x10E3/uL 1.2-7.6 [facility] Abs. Lymph. 1.02 x10E3/uL 1.0-3.5 [facility] Abs. Mobile. 1.03 x10E3/uL 0.1-1.0 [facility] Abs. Eosin. 0.13 x10E3/uL 0.1-0.7 [facility] Abs. Baso. 0.03 x10E3/uL 0.0-0.1 [facility] Abs. Imm. Gran. 0.18 x10E3/uL 0.0-0.1 [facility] ANRBC% 0 % 0 [facility] ID Date Data Source [id number] 05/29/2020 11:59:00 PM EDT [facility] jer : N *Clinically Significant Acut e Blood Loss N *Hgb < or = to 7.0g/dL or Hct < or = to 21% N *Hgb < 8.0g/dL or Hct < 24% and PT Hemodynamically Unstable N *Hgb < 8.0 for Anemia and an Acute IA or Unstable Angina N *Hgb < 9.0g/dL with Chronic Transfusion Therapy Y *Maximum Blood Order Schedule NIrradiated? NCMV Negative? NTransfuse 1units over 4Have you ever had a blood transfusion? NHave you had a blood transfusion within the last 3 months? N Name Value Range Interpretation Code Description Data Rosa rce(s) Supporting Document(s) ANTIBODY ID ANTI D [facility] ID Date Data Source [id number] 05/29/2020 12:00:00 AM EDT [facility] jer Name Value Range Interpretation Code Description Data Rosa rce(s) Supporting Document(s) [id number] TRANSFUSED PRODUCT: PACKED CELLS CO UNT: 1 [facility] ID Date Data Source [id number] 05/29/2020 11:59:00 PM EDT [facility] : N *Clinically Significant Acut e Blood Loss N *Hgb < or = to 7.0g/dL or Hct < or = to 21% N *Hgb < 8.0g/dL or Hct < 24% and PT Hemodynamically Unstable N *Hgb < 8.0 for Anemia and an Acute IA or Unstable Angina N *Hgb < 9.0g/dL with Chronic Transfusion Therapy Y *Maximum Blood Order Schedule NIrradiated? NCMV Negative? NTransfuse 1units over 4Have you ever had a blood transfusion? NHave you had a blood transfusion within the last 3 months? NC: NEGATIVEE: NEGATIVE Name Value Range Interpretation Code Description Data Rosa rce(s) Supporting Document(s) ID Date Data Source [id number] 05/29/2020 11:59:00 PM EDT [facility] : N *Clinically Significant Acut e Blood Loss N *Hgb < or = to 7.0g/dL or Hct < or = to 21% N *Hgb < 8.0g/dL or Hct < 24% and PT Hemodynamically Unstable N *Hgb < 8.0 for Anemia and an Acute IA or Unstable Angina N *Hgb < 9.0g/dL with Chronic Transfusion Therapy Y *Maximum Blood Order Schedule NIrradiated? NCMV Negative? NTransfuse 1units over 4Have you ever had a blood transfusion? NHave you had a blood transfusion within the last 3 months? NUNIT NUMBER: [id number]: YPRODUCT: LEUKO REDUCED RED BLOOD CELLSSOURCE: [facility] TYPE: A NEGATIVEVOLUME: 309MLNOT AVAILABLE: YCROSSMATCH COMPONENTS:00UNIT NUMBER: [id number]: YPRODUCT: LEUKO REDUCED RED BLOOD CELLSSOURCE: [facility] TYPE: A NEGATIVEVOLUME: 309MLCROSSMATCH COMPONENTS:00 Name Value Range Interpretation Code Description Data Rosa rce(s) Supporting Document(s) ID Date Data Source [id number] 05/29/2020 11:59:00 PM EDT [facility] : N *Clinically Significant Acut e Blood Loss N *Hgb < or = to 7.0g/dL or Hct < or = to 21% N *Hgb < 8.0g/dL or Hct < 24% and PT Hemodynamically Unstable N *Hgb < 8.0 for Anemia and an Acute IA or Unstable Angina N *Hgb < 9.0g/dL with Chronic Transfusion Therapy Y *Maximum Blood Order Schedule NIrradiated? NCMV Negative? NTransfuse 1units over 4Have you ever had a blood transfusion? NHave you had a blood transfusion within the last 3 months? NUNIT NUMBER: [id number]: YPRODUCT: LEUKO REDUCED RED BLOOD CELLSSOURCE: [facility] TYPE: A NEGATIVEVOLUME: 283MLNOT AVAILABLE: YCROSSMATCH COMPONENTS: Name Value Range Interpretation Code Description Data Rosa rce(s) Supporting Document(s) ISXM 0 [facility] IGGXM 0 [facility] ID Date Data Source [id number] 05/29/2020 11:59:00 PM EDT [facility] *Clinically Significant Acut e Blood Loss N *Hgb < or = to 7.0g/dL or Hct < or = to 21% N *Hgb < 8.0g/dL or Hct < 24% and PT Hemodynamically Unstable N *Hgb < 8.0 for Anemia and an Acute IA or Unstable Angina N *Hgb < 9.0g/dL with Chronic Transfusion Therapy Y *Maximum Blood Order Schedule NIrradiated? NCMV Negative? NTransfuse 1units over 4Have you ever had a blood transfusion? NHave you had a blood transfusion within the last 3 months? N Name Value Range Interpretation Code Description Data Rosa rce(s) Supporting Document(s) BLOOD TYPE AB NEGATIVE N [facility] ANTIBODY SCREEN POSITIVE N [facility] al ID Date Data Source [id number] 05/25/2020 08:55:00 AM EDT [facility] Name Value Range Interpretation Code Description Data Rosa rce(s) Supporting Document(s) DATIgG NEGATIVE NEGATIVE N [facility] ID Date Data Source [id number] 05/25/2020 12:50:00 AM EDT [facility] Name Value Range Interpretation Code Description Data Rosa rce(s) Supporting Document(s) FGLU 250 mg/dL 70-110 H [facility] ID Date Data Source [id number] 05/24/2020 06:24:00 PM EDT [facility] Name Value Range Interpretation Code Description Data Rosa rce(s) Supporting Document(s) FGLU 107 mg/dL 70-110 N [facility] ID Date Data Source [id number] 05/24/2020 04:01:00 PM EDT [address] [id number] NOTEPATIENT NAME: ELA PONCE BATTENKEIKO PHYSICIAN: MICHAEL WANG, MDAUTHOR: Breezy GA, Zhang. DATE: 05/18/20 MR#: [id number] NOTE DATE: 05/24/20 RM#: [id number] TIME: 1608 : 45SubjectiveCC/Hx Present IllnessBack painEvents Since Last EntryCurrently alert oriented x3. Very poor historian. On chronic oxygen. Patientcomfortable, reported chronic back pain. Following command, tolerating p.o.back to baseline. Denies chest pain. Afebrile. All other review of systemnegativeObjectiveVital SignsVital Signs-24 HRS05/23733268 3000 0200 0517Temp 98.1 98.0 97.8 98.1Pulse 100 94 94 92Resp 17 18 18 18B/P 166/76 166/76 164/76 168/79B/P MeanPulse Ox 99 99 97 97O2 Delivery Nasal cannula Nasal cannula Nasal cannula Nasal cannulaO2 Flow Rate 3L 3L 3L 1.6ZcR16605/24780014 8147 0739 0844 1030Temp 98.1 98.4Pulse 87 93 103Resp 18 17B/P 168/79 169/75 169/75 162/77B/P MeanPulse Ox 99 94O2 Delivery Nasal cannula Nasal cannulaO2 Flow Rate 3L 1.8XHmJ481/472827Wxlo 98.4Pulse 100Resp 17B/P 164/78B/P MeanPulse Ox 96O2 DeliveryO2 Flow FumeBhZ9Il take/OutputIntake/Output Summary 24 hours13 1900 0414 0700Intake [...] Status mood neutral, no hallucinationsResultsLaboratory DataRecent Labs-24 hours05/23572738 7853 0350 0607ChemistrySodium (136 - 147 mmol/L) 143Potassium [...] x10E3/uL) 0.01Nucleated RBC % (auto) (0 %) 004/574413TktbritqqRGK Glucose (70 - 110 mg/dL) 228 HResults Reviewed labs reviewedAssessment/PlanProblem List1. Back painStatus AcuteA&PDegenerative disc disease, spinal stenosis, T1-T2 subacute fracturePatient complained of back pain.MRI appreciated with no evidence of discitis, likely worsening pain due tosubcu vertebral body fracture-Leukocytosis trending down. C-reactive protein dqkhsbd-Evulio-oc blood cultures-Pain management.2. PneumoniaStatus AcuteA&PC-reactive protein improvingZosyn. [...] pyelonephritis on CT abdomen pelvis-Continue with Zosyn ij-Xwwbvp-gn urine culture.5. HLD (hyperlipidemia)Status ChronicA&PContinue statin6. Spinal stenosisStatus ChronicA&PChronic history of spinal stenosis continue with pain management.7. DepressionStatus ChronicA&PContinue with duloxetine., BuSpar8. HypothyroidismStatus ChronicA&P-Continue with levothyroxine.9. HTN (hypertension)Status ChronicA&P-Continue with lisinopril and increase hydralazine 50 mg p.o. 3 times daily,Imdur p.o. 90md daily, added metoprolol 25 mg p.o. dailyblood pressure control-Monitor blood pressure.10. CKD (chronic kidney disease)Status ChronicA&PHistory of CKD. SU at [facility].-Monitor renal function.11. DiabetesStatus ChronicA&PComplicated with hypoglycemia and hyperglycemiaLevemir 6 units daily, continue NovoLog via protocol, close monitoring, vvufwacghknxy14. AnxietyStatus AcuteA&Mendoza chronic benzodiazepines. Will continue.13. PVD (peripheral vascular disease)Status ChronicA&PHistory of stent placement.Continue with Plavix, statin-Continue to monitor.14. DebilityStatus ChronicA&P-Supportive care-Consider PT/OT when patient is more alert.15. HypoalbuminemiaStatus ChronicA&PEncourage p.o. intake. Nutrition supplementation.Ensure p.o. 3 times daily.16. Polysubstance abuseStatus ChronicA&PThiamine, folic acid, multivitamin, no signs of fhgiwfmljt86. HypernatremiaStatus AcuteA&BMolugusez99. HyperglycemiaStatus AcuteA&PSecondary to steroid, will be very cautious in increasing coverage due toepisode of hypoglycemia, taper qvatfrd18. T1-T2 SUBACUTE FRACTUREStatus AcuteA&PPT, OT, fall precaution, pain medication as orderedAdditional Lxpnd05-xhos-tet female patient underlying medical history of COPD O2 dependent,spinal stenosis, depression, dyslipidemia, type 2 diabetes, nicotine addiction,anxiety, hypothyroidism, debility, CKD, peripheral vascular disease,hypoalbuminemia, polysubstance abuse, [facility], sepsis, deconditioning with frequentfall, transferred given complains of back pain and worsening leukocytosisDVT prophylaxis Heparin subcuDisposition pending clinical improvement, potential transfer back to [facility] SNFResuscitation status Full codePlan discussed with patientCase discussed with family caseworker, nursing staffVTE ProphylaxisVTE Prophylaxis: Heparin subcu.DATE SIGNED: 05/24/20 Electronically SignedTIME SIGNED: 2858 SAAD FRIED MD Name Value Range Interpretation Code Description Data Rosa rce(s) Supporting Document(s) ID Date Data Source [id number] 05/24/2020 02:59:00 PM EDT [facility] Name Value Range Interpretation Code Description Data Rosa rce(s) Supporting Document(s) FGLU 228 mg/dL 70-110 H [facility] ID Date Data Source [id number] 05/24/2020 07:48:00 AM EDT [facility] jer Name Value Range Interpretation Code Description Data Rosa rce(s) Supporting Document(s) FGLU 93 mg/dL 70-110 [facility] ID Date Data Source [id number] 05/24/2020 05:49:00 AM EDT [facility] jer Name Value Range Interpretation Code Description Data Rosa rce(s) Supporting Document(s) GLU 69 mg/dL 70-110 [facility] Patients taking Sulfasalazine may have f alsely depressedGlucose levels. Patients taking Sulfapyridine may havefalsely elevated Glucose levels. Patients should be drawnfor Glucose before the initial administration of eitherdrug. BUN 24 mg/dL 7-23 H [facility] CRE 0.995 mg/dL 0.500-1.300 [facility] GFR 58 mL/min [facility] CHLORIDE 112 mmol/L 99-110 H [facility] NA 143 mmol/L 136-147 [facility] POTASSIUM 3.9 mmol/L 3.5-5.1 [facility] TCO2 27 mmol/L 20-33 [facility] ANION GAP 7.9 10.0-20.0 [facility] CA 8.2 mg/dL 8.3-10.7 [facility] ALKALINE PHOS 139 U/L 45-117 H [facility] TP 5.7 g/dL 6.0-7.8 [facility] ALB 2.6 g/dL 3.5-5.0 [facility] ESRD Dialysis patient Albumin reference range: 2.9-4.4 g/dL GL 3.1 g/dL 2.3-3.5 [facility] A/G 0.8 1.0-2.5 [facility] T. BILIRUBIN 0.4 mg/dL 0.1-1.1 [facility] The Dimension [place] Total Bilirubin is n ot recommended forpatients undergoing treatment with eltrombopag (Promacta)due to the potential for falsely elevated results. ALTI 36 U/L 6-54 [facility] Patients taking Sulfasalazine and/or Sul fapyridine may havefalsely depressed ALT levels. Patients should be drawn forALT before the initial administration of either drug. AST 32 U/L 6-38 N [facility] Patients taking Sulfasalazine and/or Sul fapyridine may havefalsely depressed AST levels. Patients should be drawn forAST before the initial administration of either drug. ID Date Data Source [id number] 05/24/2020 05:49:00 AM EDT [facility] Name Value Range Interpretation Code Description Data Rosa rce(s) Supporting Document(s) C-REACTIVE PROT 0.90 mg/dL 0.00-0.49 H [facility] ID Date Data Source [id number] 05/24/2020 05:49:00 AM EDT [facility] Name Value Range Interpretation Code Description Data Rosa rce(s) Supporting Document(s) MAGNESIUM 2.0 mg/dL 1.6-2.6 [facility] ID Date Data Source [id number] 05/24/2020 05:16:00 AM EDT [facility] Name Value Range Interpretation Code Description Data Rosa rce(s) Supporting Document(s) WBC 17.89 x10E3/uL 4.0-10.5 [facility] RBC 2.71 x10E6/uL 4.20-5.40 L [facility] Hemoglobin 8.1 g/dL 12.0-16.0 [facility] Hematocrit 25.1 % 37.0-47.0 [facility] MCV 92.6 fL 81.0-99.0 [facility] MCH 29.9 pg 27.0-31.0 [facility] MCHC 32.3 g/dL 32.7-35.6 [facility] RDW 15.1 % 11.5-14.0 H [facility] Platelet count 164 x10E3/uL 150-450 N [facility] ital MPV 9.9 fl 6.9-9.5 H [facility] Neutrophils 83.5 % 34-64 H [facility] Lymphocytes 7.4 % 25-45 L [facility] Monocytes 6.4 % 1.7-10.6 [facility] Eosinophils 1.0 % 0.4-7.0 [facility] Basophils 0.1 % 0.1-2.0 [facility] Imm. Gran. 1.6 % 0.1-2.0 N [facility] Abs. Neutro. 14.96 x10E3/uL 1.2-7.6 [facility] Abs. Lymph. 1.32 x10E3/uL 1.0-3.5 N [facility] Abs. Mobile. 1.15 x10E3/uL 0.1-1.0 [facility] Abs. Eosin. 0.17 x10E3/uL 0.1-0.7 [facility] Abs. Baso. 0.01 x10E3/uL 0.0-0.1 [facility] Abs. Imm. Gran. 0.28 x10E3/uL 0.0-0.1 [facility] ANRBC% 0 % 0 [facility] ID Date Data Source [id number] 05/24/2020 01:38:00 AM EDT [facility] Name Value Range Interpretation Code Description Data Rosa rce(s) Supporting Document(s) FGLU 68 mg/dL 70-110 L [facility] ID Date Data Source [id number] 05/23/2020 08:05:00 PM EDT [address] [id number] NOTEPATIENT NAME: ELA PONCE PHYSICIAN: MICHAEL WANG MDAUTHOR: Breezy [place], Zhang. DATE: 05/18/20 MR#: [id number] NOTE DATE: 05/23/20 RM#: [id number] TIME: 2021 [...] Nasal cannula Nasal cannulaO2 Flow Rate 2 8RyB956/13 05/23200262 4867 0942 1000 1341Temp 98.1 98.3Pulse 89 100 96Resp 17 17B/P 178/64 178/64 182/83 168/77B/P MeanPulse Ox 98 95O2 Delivery Nasal cannula Nasal cannula Nasal cannulaO2 Flow Rate 3L 2L 1ALhQ330/545738Rcho 98.1Pulse 100Resp 17B/P 166/76B/P MeanPulse Ox 99O2 Delivery Nasal cannulaO2 Flow Rate 0AQyH1Znyvym/OutputIntake/Output Summary 24 hours12 1900 05/23 0700Intake Total [...] skin tearPsych/Mental Status mood neutralResultsLaboratory DataRecent Labs-24 hours05/23353496 0622ChemistrySodium (136 - 147 mmol/L) 141Potassium (3.5 [...] subcuvertebral body fracture-Leukocytosis trending down. C-reactive protein nfllnmv-Zhqaja-fh blood cultures-Pain management.2. PneumoniaStatus AcuteA&PC-reactive protein improvingZosyn. [...] pyelonephritis on CT abdomen pelvis-Continue with Zosyn by-Jtpdve-zj urine culture.5. HLD (hyperlipidemia)Status ChronicA&PContinue statin6. Spinal stenosisStatus ChronicA&PChronic history of spinal stenosis continue with pain management.7. DepressionStatus ChronicA&PContinue with duloxetine., BuSpar8. HypothyroidismStatus ChronicA&PCheck TSH.-Continue with levothyroxine.9. HTN (hypertension)Status ChronicA&P-Continue with lisinopril and increase hydralazine 50 mg p.o. 3 times daily,Imdur p.o. 90md dailyblood pressure control-Monitor blood pressure.10. CKD (chronic kidney disease)Status ChronicA&PHistory of CKD. SU at [facility].-Monitor renal function.11. DiabetesStatus ChronicA&PComplicated with hypoglycemia and hyperglycemiaLevemir 8 units daily, continue NovoLog via protocol, close monitoring, neaaouwjcumcn25. AnxietyStatus AcuteA&Mendoza chronic benzodiazepines. Will continue.13. PVD (peripheral vascular disease)Status ChronicA&PHistory of stent placement.Continue with Plavix, statin-Continue to monitor.14. DebilityStatus ChronicA&P-Supportive care-Consider PT/OT when patient is more alert.15. HypoalbuminemiaStatus ChronicA&PEncourage p.o. intake. Nutrition supplementation.Ensure p.o. 3 times daily.16. Polysubstance abuseStatus ChronicA&PThiamine, folic acid, multivitamin, Ativan as needed for zhrnysknrv88. HypernatremiaStatus AcuteA&XBwgejhbiv29. HyperglycemiaStatus AcuteA&PSecondary to steroid, will be very cautious in increasing coverage due toepisode of hypoglycemia, taper typxyye13. T1-T2 SUBACUTE FRACTUREStatus AcuteA&PPT, OT, fall precaution, pain medication as orderedAdditional Oiymj95-lcmh-shx female patient underlying medical history of COPD O2 dependent,spinal stenosis, depression, dyslipidemia, type 2 diabetes, nicotine addiction,anxiety, hypothyroidism, debility, CKD, peripheral vascular disease,hypoalbuminemia, polysubstance abuse, [facility], sepsis, deconditioning with frequentfall, transferred given complains of back pain and worsening leukocytosisDVT prophylaxis Heparin subcuDisposition pending clinical improvement, potential transfer back to [facility] SNFResuscitation status Full codePlan discussed with patient, sonCase discussed with family caseworker, nursing staffVTE ProphylaxisVTE Prophylaxis: heparin SQDATE SIGNED: 04/13/21 Electronically SignedTIME SIGNED: 2021 SAAD FRIED MD Name Value Range Interpretation Code Description Data Rosa rce(s) Supporting Document(s) ID Date Data Source [id number] 05/23/2020 11:37:00 PM EDT [facility] Name Value Range Interpretation Code Description Data Rosa rce(s) Supporting Document(s) FGLU 190 mg/dL 70-110 [facility] ID Date Data Source [id number] 05/24/2020 02:34:00 AM EDT [facility] Name Value Range Interpretation Code Description Data Rosa rce(s) Supporting Document(s) FGLU 304 mg/dL 70-110 [facility] ID Date Data Source [id number] 05/23/2020 08:21:00 AM EDT [facility] Name Value Range Interpretation Code Description Data Rosa rce(s) Supporting Document(s) FGLU 271 mg/dL 70-110 [facility] ID Date Data Source [id number] 05/23/2020 05:59:00 AM EDT [facility] Name Value Range Interpretation Code Description Data Orsa rce(s) Supporting Document(s) C-REACTIVE PROT 1.72 mg/dL 0.00-0.49 [facility] ID Date Data Source [id number] 05/23/2020 05:59:00 AM EDT [facility] Name Value Range Interpretation Code Description Data Rosa rce(s) Supporting Document(s) MAGNESIUM 2.0 mg/dL 1.6-2.6 N [facility] ID Date Data Source [id number] 05/23/2020 05:59:00 AM EDT [facility] Name Value Range Interpretation Code Description Data Rosa rce(s) Supporting Document(s) GLU 225 mg/dL 70-110 [facility] Patients taking Sulfasalazine may have f alsely depressedGlucose levels. Patients taking Sulfapyridine may havefalsely elevated Glucose levels. Patients should be drawnfor Glucose before the initial administration of eitherdrug. BUN 28 mg/dL 7-23 [facility] CRE 1.040 mg/dL 0.500-1.300 [facility] GFR 55 mL/min [facility] CHLORIDE 111 mmol/L 99-110 [facility] NA 141 mmol/L 136-147 [facility] POTASSIUM 4.3 mmol/L 3.5-5.1 [facility] TCO2 28 mmol/L 20-33 [facility] ANION GAP 6.3 10.0-20.0 [facility] CA 8.2 mg/dL 8.3-10.7 [facility] ALKALINE PHOS 140 U/L 45-117 [facility] TP 5.4 g/dL 6.0-7.8 [facility] ALB 2.5 g/dL 3.5-5.0 [facility] ESRD Dialysis patient Albumin reference range: 2.9-4.4 g/dL GL 2.9 g/dL 2.3-3.5 [facility] A/G 0.9 1.0-2.5 [facility] T. BILIRUBIN 0.5 mg/dL 0.1-1.1 [facility] The [facility] [place] Total Bilirubin is n ot recommended forpatients undergoing treatment with eltrombopag (Promacta)due to the potential for falsely elevated results. ALTI 36 U/L 6-54 [facility] Patients taking Sulfasalazine and/or Sul fapyridine may havefalsely depressed ALT levels. Patients should be drawn forALT before the initial administration of either drug. AST 25 U/L 6-38 [facility] Patients taking Sulfasalazine and/or Sul fapyridine may havefalsely depressed AST levels. Patients should be drawn forAST before the initial administration of either drug. ID Date Data Source [id number] 05/23/2020 05:14:00 AM EDT [facility] Name Value Range Interpretation Code Description Data Rosa rce(s) Supporting Document(s) WBC 12.48 x10E3/uL 4.0-10.5 [facility] RBC 2.65 x10E6/uL 4.20-5.40 [facility] Hemoglobin 8.0 g/dL 12.0-16.0 [facility] Hematocrit 24.7 % 37.0-47.0 [facility] MCV 93.2 fL 81.0-99.0 [facility] MCH 30.2 pg 27.0-31.0 N [facility] MCHC 32.4 g/dL 32.7-35.6 L [facility] RDW 14.8 % 11.5-14.0 [facility] Platelet count 146 x10E3/uL 150-450 [facility] ital MPV 10.1 fl 6.9-9.5 [facility] Neutrophils 88.5 % 34-64 [facility] Lymphocytes 4.8 % 25-45 [facility] Monocytes 4.6 % 1.7-10.6 N [facility] Eosinophils 0.2 % 0.4-7.0 L [facility] Basophils 0.1 % 0.1-2.0 N [facility] Imm. Gran. 1.8 % 0.1-2.0 N [facility] Abs. Neutro. 11.04 x10E3/uL 1.2-7.6 [facility] Abs. Lymph. 0.60 x10E3/uL 1.0-3.5 [facility] Abs. Mobile. 0.58 x10E3/uL 0.1-1.0 [facility] Abs. Eosin. 0.02 x10E3/uL 0.1-0.7 [facility] Abs. Baso. 0.01 x10E3/uL 0.0-0.1 [facility] Abs. Imm. Gran. 0.23 x10E3/uL 0.0-0.1 [facility] ANRBC% 0 % 0 [facility] ID Date Data Source [id number] 05/22/2020 04:34:00 PM EDT [facility] Name Value Range Interpretation Code Description Data Rosa rce(s) Supporting Document(s) FGLU 348 mg/dL 70-110 [facility] ID Date Data Source [id number] 05/22/2020 02:57:00 PM EDT [facility] [address] [id number] NOTEPATIENT NAME: JOHNTURE,ELA BATTENDING PHYSICIAN: MICHAEL WANG MDAUTHOR: Breezy [place], Zhang. DATE: 05/18/20 MR#: [id number] NOTE DATE: 05/22/20 RM#: 232EVALUATION TIME: 1531 : 45SubjectiveCC/Hx Present IllnessBack painEvents Since Last EntryCurrently alert oriented x3. Very poor historian. On chronic oxygen. Patientcomfortable, reported chronic back pain. Following command, tolerating p.o.almost back to baseline. Denies chest pain. Afebrile. All other review ofsystem negativeObjectiveVital SignsVital Signs-24 HRS05/21431762 6445 2200 0128Temp 99.3 99.0 98.7Pulse 95 95 91Resp 16 16 16B/P 190/88 144/77 147/63B/P MeanPulse Ox 100 98 95O2 Delivery Nasal cannula Nasal cannula Nasal cannula Nasal cannulaO2 Flow Rate 3L 2 2L 8HaS449/05/22325192 4229 0835 1000 1426Temp 98.6 97.3Pulse 95 98Resp 16 17B/P 165/75 163/83 163/83 164/80B/P MeanPulse Ox 96 95O2 Delivery Nasal cannula Nasal cannula Nasal cannulaO2 Flow Rate 2 2L 3NCeV6Jbzkku/OutputIntake/Output Summary 24 hours05/21 1900 05/22 0700Intake Total [...] tearPsych/Mental Status mood n eutralResultsLaboratory DataRecent Labs-24 hours05/21644809 7100 0615ChemistrySodium (136 - 147 mmol/L) 145Potassium (3.5 [...] subcuvertebral body fracture-Leukocytosis trending down. C-reactive protein catzjac-Wwoeoz-rd blood cultures-Pain management.2. PneumoniaStatus AcuteA&PC-reactive protein improvingZosyn. [...] pyelonephritis on CT abdomen pelvis-Continue with Zosyn qa-Gngdua-hh urine culture.5. HLD (hyperlipidemia)Status ChronicA&PContinue statin6. Spinal stenosisStatus ChronicA&PChronic history of spinal stenosis continue with pain management.7. DepressionStatus ChronicA&PContinue with duloxetine., BuSpar8. HypothyroidismStatus ChronicA&PCheck TSH.-Continue with levothyroxine.9. HTN (hypertension)Status ChronicA&P-Continue with lisinopril and increase hydralazine 50 mg p.o. 3 times daily,restarting NorvascImdur 30 mg p.o. daily added for better blood pressure control-Monitor blood pressure.10. CKD (chronic kidney disease)Status ChronicA&PHistory of CKD. SU at [facility].-Monitor renal function.11. DiabetesStatus ChronicA&PComplicated with hypoglycemia and hyperglycemiaLevemir 8 units daily, continue NovoLog via protocol, close monitoring, seyebanhgeucw60. AnxietyStatus AcuteA&Mendoza chronic benzodiazepines. Will continue.13. PVD (peripheral vascular disease)Status ChronicA&PHistory of stent placement.Continue with Plavix, statin-Continue to monitor.14. DebilityStatus ChronicA&P-Supportive care-Consider PT/OT when patient is more alert.15. HypoalbuminemiaStatus ChronicA&PEncourage p.o. intake. Nutrition supplementation.Ensure p.o. 3 times daily.16. Polysubstance abuseStatus ChronicA&PThiamine, folic acid, multivitamin, Ativan as needed for . HypernatremiaStatus AcuteA&WVenmbnooi12. HyperglycemiaStatus AcuteA&PSecondary to steroid, will be very cautious in increasing coverage due toepisode of hypoglycemia, taper steroidAdditional Lasho78-rohu-yph female patient underlying medical history of COPD O2 dependent,spinal stenosis, depression, dyslipidemia, type 2 diabetes, nicotine addiction,anxiety, hypothyro idism, debility, CKD, peripheral vascular disease,hypoalbuminemia, polysubstance abuse, initially admitted to [facility] for right upper lobe pneumonia, sepsis, deconditioning with frequentfall, transferred given complains of back pain and worsening leukocytosisDVT prophylaxis Heparin subcuDisposition pending clinical improvement, potential [facility] SNFResuscitation status Full codePlan discussed with patientCase discussed with family caseworker, nursing staffVTE ProphylaxisVTE Prophylaxis: Heparin subcu.DATE SIGNED: 05/22/20 Electronically SignedTIME SIGNED: 153 SAAD FRIED MD Name Value Range Interpretation Code Description Data Rosa rce(s) Supporting Document(s) ID Date Data Source [id number] 05/22/2020 04:14:00 PM EDT [facility] Name Value Range Interpretation Code Description Data Rosa rce(s) Supporting Document(s) VANCOMYCIN TROU 22.1 ug/mL 5-10 [facility] FOR SKIN AND SKIN STRUCTURE INFECTIONS, GUIDELINES RECOMMENDA TROUGH OF 10. FOR SEVERE INFECTIONS, (PNEUMONIA, OSTEOMYELITIS, MENINGITISAND BACTEREMIA) A TARGET TROUGH OF 15 TO 20 IS RECOMMENDED. ID Date Data Source [id number] 05/22/2020 02:26:00 PM EDT [facility] Exam Number: [id number] OF EXAMINATIO N: 05/22/2020 9:00 EDTMRI L-SPINE W/O FOL BY W/ CONTHISTORY: TendernessMulti-echo, multiplanar imaging of the lumbar spine was obtainedwithout and with contrast .FINDINGS:Decreased signal intensity on T2-weighted images is present in thelumbar intervertebral discs. The L3-4 through L5-S1 intervertebraldiscs are decreased in height. These findings are consistent with discdegeneration.I there is no disc bulge or herniation at the L1-2 level. The P9pocgsu exit the neural foramina without compression.A diffuse [...] Name Value Range Interpretation Code Description Data [facility](s) Supporting Document(s) ID Date Data Source [id number] 05/22/2020 12:41:00 PM EDT [facility] Progress Note GeneralEncounter:Chart re viewed. [...] normal capillary refill, no calf tendernessNeurologic/Psychiatric alert, patternator II- XII nml as tested, normal mood/affect, [...] rce(s) Supporting Document(s) ID Date Data Source [id number] 05/22/2020 11:35:00 AM EDT [facility] Exam Number: [id number] OF EXAMINATIO N: 05/22/2020 9:00 EDTMRI T-SPINE [...] rce(s) Supporting Document(s) ID Date Data Source [id number] 05/23/2020 12:09:00 AM EDT [facility] Name Value Range Interpretation Code Description Data Rosa rce(s) Supporting Document(s) FGLU 325 mg/dL 70-110 [facility] ID Date Data Source [id number] 05/22/2020 07:22:00 AM EDT [facility] Name Value Range Interpretation Code Description Data Rosa rce(s) Supporting Document(s) C-REACTIVE PROT 0.96 mg/dL 0.00-0.49 [facility] ID Date Data Source [id number] 05/22/2020 07:22:00 AM EDT [facility] Name Value Range Interpretation Code Description Data Rosa rce(s) Supporting Document(s) MAGNESIUM 2.0 mg/dL 1.6-2.6 [facility] ID Date Data Source [id number] 05/22/2020 07:22:00 AM EDT [facility] Name Value Range Interpretation Code Description Data Rosa rce(s) Supporting Document(s) GLU 217 mg/dL 70-110 [facility] Patients taking Sulfasalazine may have f alsely depressedGlucose levels. Patients taking Sulfapyridine may havefalsely elevated Glucose levels. Patients should be drawnfor Glucose before the initial administration of eitherdrug. BUN 23 mg/dL 7-23 [facility] CRE 0.901 mg/dL 0.500-1.300 [facility] GFR > 60 mL/min [facility] CHLORIDE 114 mmol/L 99-110 [facility] NA 145 mmol/L 136-147 [facility] POTASSIUM 3.9 mmol/L 3.5-5.1 [facility] TCO2 27 mmol/L 20-33 [facility] ANION GAP 7.9 10.0-20.0 [facility] CA 8.0 mg/dL 8.3-10.7 [facility] ALKALINE PHOS 144 U/L 45-117 [facility] TP 5.4 g/dL 6.0-7.8 [facility] ALB 2.5 g/dL 3.5-5.0 [facility] ESRD Dialysis patient Albumin reference range: 2.9-4.4 g/dL GL 2.9 g/dL 2.3-3.5 [facility] A/G 0.9 1.0-2.5 [facility] T. BILIRUBIN 0.5 mg/dL 0.1-1.1 [facility] The Dimension Mora Total Bilirubin is n ot recommended forpatients undergoing treatment with eltrombopag (Promacta)due to the potential for falsely elevated results. ALTI 38 U/L 6-54 [facility] Patients taking Sulfasalazine and/or Sul fapyridine may havefalsely depressed ALT levels. Patients should be drawn forALT before the initial administration of either drug. AST 27 U/L 6-38 [facility] Patients taking Sulfasalazine and/or Sul fapyridine may havefalsely depressed AST levels. Patients should be drawn forAST before the initial administration of either drug. ID Date Data Source [id number] 05/22/2020 07:04:00 AM EDT [facility] Name Value Range Interpretation Code Description Data Rosa rce(s) Supporting Document(s) WBC 13.34 x10E3/uL 4.0-10.5 [facility] RBC 2.90 x10E6/uL 4.20-5.40 [facility] Hemoglobin 8.8 g/dL 12.0-16.0 [facility] Hematocrit 27.2 % 37.0-47.0 [facility] MCV 93.8 fL 81.0-99.0 [facility] MCH 30.3 pg 27.0-31.0 [facility] MCHC 32.4 g/dL 32.7-35.6 [facility] RDW 15.3 % 11.5-14.0 [facility] Platelet count 141 x10E3/uL 150-450 [facility] ital MPV 10.1 fl 6.9-9.5 [facility] Neutrophils 84.2 % 34-64 [facility] Lymphocytes 7.2 % 25-45 [facility] Monocytes 6.2 % 1.7-10.6 [facility] Eosinophils 1.3 % 0.4-7.0 [facility] Basophils 0.1 % 0.1-2.0 [facility] Imm. Gran. 1.0 % 0.1-2.0 [facility] Abs. Neutro. 11.22 x10E3/uL 1.2-7.6 [facility] Abs. Lymph. 0.96 x10E3/uL 1.0-3.5 [facility] Abs. Mobile. 0.83 x10E3/uL 0.1-1.0 [facility] Abs. Eosin. 0.18 x10E3/uL 0.1-0.7 [facility] Abs. Baso. 0.01 x10E3/uL 0.0-0.1 [facility] Abs. Imm. Gran. 0.14 x10E3/uL 0.0-0.1 [facility] ANRBC% 0 % 0 [facility] ID Date Data Source [id number] 05/23/2020 09:11:00 AM EDT [facility] Name Value Range Interpretation Code Description Data Rosa rce(s) Supporting Document(s) FGLU 224 mg/dL 70-110 [facility] ID Date Data Source [id number] 05/23/2020 12:07:00 AM EDT [facility] Name Value Range Interpretation Code Description Data Rosa rce(s) Supporting Document(s) FGLU 201 mg/dL 70-110 [facility] ID Date Data Source [id number] 05/21/2020 06:03:00 PM EDT [facility] [address] [id number] NOTEPATIENT NAME: ELA PONCETENKEIKO PHYSICIAN: MICHAEL WANG MDAUTHOR: Breezy [place], Zhang. DATE: 05/18/20 MR#: [id number] NOTE DATE: 05/21/20 RM#: [id number] TIME: 1814 : 45SubjectiveCC/Hx Present IllnessBack painEvents Since Last EntryCurrently alert oriented x2. Very poor historian. On chronic oxygen. Patientcomfortable, reported chronic back pain. Following command, tolerating p.o.Seems more responsive today. Denies chest pain. Afebrile. All other reviewof system negativeObjectiveVital SignsVital Signs-24 HRS05/[id number] 2527 0142 0455 0802Temp 98.7 97.1 97.2Pulse 101 86 102Resp 18 17 22B/P 166/71 140/88 140/88B/P MeanPulse Ox 89 90 95O2 Delivery Nasal cannula Nasal cannula Nasal cannulaO2 Flow Rate 3L 2L [id number] 5606 1350 1710Temp 97.6 98.2 99.3Pulse 97 100 95Resp 18 16 16B/P 140/86 152/86 158/78 190/88B/P MeanPulse Ox 98 98 100O2 Delivery Nasal cannula Nasal cannula Nasal cannulaO2 Flow Rate 2 3L 1YIzW9Zvjirp/OutputIntake/Output Summary 24 hours05/200 05/21 0700Intake Total 1150 [...] stenosis, possible concern for discitis. Patient transferred [facility] for MRI thoracic and lumbar spine.-We will obtain MRI of the thoracic and lumbar spine.-Patient on vancomycin IV and Zosyn IV-Leukocytosis trending down. C-reactive protein awlzmvz-Jeeuym-iv blood cultures-Pain management.unable to obtain MRI due [...] pyelonephritis on CT abdomen pelvis-Continue with Zosyn jo-Zkfvjr-yi urine culture.5. HLD (hyperlipidemia)Status ChronicA&PContinue statin6. Spinal stenosisStatus ChronicA&PChronic history of spinal stenosis continue with pain management.7. DepressionStatus ChronicA&PContinue with duloxetine., BuSpar8. HypothyroidismStatus ChronicA&PCheck TSH.-Continue with levothyroxine.9. HTN (hypertension)Status ChronicA&P-Continue with lisinopril and increase hydralazine 50 mg p.o. 3 times daily,restarting Norvasc-Monitor blood pressure.10. CKD (chronic kidney disease)Status ChronicA&PHistory of CKD. SU at [facility].-Monitor renal function.11. DiabetesStatus ChronicA&PComplicated with hypoglycemia and hyperglycemiaLevemir 6 units daily, continue NovoLog via protocol, close monitoring, oepxpmbawicds95. AnxietyStatus AcuteA&Mendoza chronic benzodiazepines. Will continue.13. PVD (peripheral vascular disease)Status ChronicA&PHistory of stent placement.Continue with Plavix, statin-Continue to monitor.14. DebilityStatus ChronicA&P-Supportive care- Consider PT/OT when patient is more alert.15. HypoalbuminemiaStatus ChronicA&PEncourage p.o. intake. Nutrition supplementation.Ensure p.o. 3 times daily.16. Polysubstance abuseStatus ChronicA&PThiamine, folic acid, multivitamin, Ativan as needed for bqauczllxc30. HypernatremiaStatus AcuteA&PLikely secondary to IV fluids, encourage oral hydration. Tmfqjeaiw59. HyperglycemiaStatus AcuteA&PSecondary to steroid, will be very cautious in increasing coverage due toepisode of hypoglycemia, taper steroidAdditional [id number] female patient underlying medical history of COPD O2 dependent,spinal stenosis, depression, dyslipidemia, type 2 diabetes, nicotine addiction,anxiety, hypothyroidism, debility, CKD, peripheral vascular disease,hypoalbuminemia, polysubstance abuse, initially admitted to [facility] for right upper lobe pneumonia, sepsis, deconditioning with frequentfall, transferred given complains of back pain and worsening leukocytosisDVT prophylaxis Heparin subcuDisposition pending clinical improvement we will reattempt to get MRIResuscitation status Full codeCase discussed with family caseworker, nursing staffVTE ProphylaxisVTE Prophylaxis: Heparin subcu.DATE SIGNED: 05/21/20 Electronically SignedTIME SIGNED: 1814 SAAD FRIED MD Name Value Range Interpretation Code Description Data Rosa rce(s) Supporting Document(s) ID Date Data Source [id number] 05/21/2020 06:55:00 PM EDT [facility] Name Value Range Interpretation Code Description Data Rosa rce(s) Supporting Document(s) FGLU 287 mg/dL 70-110 [facility] ID Date Data Source [id number] 05/22/2020 02:28:00 AM EDT [facility] Name Value Range Interpretation Code Description Data Rosa rce(s) Supporting Document(s) FGLU 210 mg/dL 70-110 [facility] ID Date Data Source [id number] 05/21/2020 06:53:00 PM EDT [facility] Name Value Range Interpretation Code Description Data Rosa rce(s) Supporting Document(s) FGLU 343 mg/dL 70-110 [facility] ID Date Data Source [id number] 05/21/2020 10:26:00 AM EDT [facility] COMMENTS TO LAB: CRITICAL HIGH Name Value Range Interpretation Code Description Data Rosa rce(s) Supporting Document(s) GLU 453 mg/dL 70-110 [facility] Patients taking Sulfasalazine may have f alsely depressedGlucose levels. Patients taking Sulfapyridine may havefalsely elevated Glucose levels. Patients should be drawnfor Glucose before the initial administration of eitherdrug. ID Date Data Source [id number] 05/21/2020 07:55:00 AM EDT [facility] COMMENTS TO LAB: CRHI BS Name Value Range Interpretation Code Description Data Rosa rce(s) Supporting Document(s) GLU 433 mg/dL 70-110 [facility] Patients taking Sulfasalazine may have f alsely depressedGlucose levels. Patients taking Sulfapyridine may havefalsely elevated Glucose levels. Patients should be drawnfor Glucose before the initial administration of eitherdrug. ID Date Data Source [id number] 05/21/2020 05:21:00 AM EDT [facility] Name Value Range Interpretation Code Description Data Rosa rce(s) Supporting Document(s) VANCOMYCIN RAND 21.2 ug/mL 5-10 [facility] ID Date Data Source [id number] 05/21/2020 05:09:00 AM EDT [facility] Name Value Range Interpretation Code Description Data Rosa rce(s) Supporting Document(s) C-REACTIVE PROT 2.01 mg/dL 0.00-0.49 [facility] ID Date Data Source [id number] 05/21/2020 05:09:00 AM EDT [facility] Name Value Range Interpretation Code Description Data Rosa rce(s) Supporting Document(s) MAGNESIUM 2.2 mg/dL 1.6-2.6 [facility] ID Date Data Source [id number] 05/21/2020 05:09:00 AM EDT [facility] Name Value Range Interpretation Code Description Data Rosa rce(s) Supporting Document(s) GLU 345 mg/dL 70-110 [facility] Patients taking Sulfasalazine may have f alsely depressedGlucose levels. Patients taking Sulfapyridine may havefalsely elevated Glucose levels. Patients should be drawnfor Glucose before the initial administration of eitherdrug. BUN 24 mg/dL 7-23 [facility] CRE 1.010 mg/dL 0.500-1.300 [facility] GFR 57 mL/min [facility] CHLORIDE 113 mmol/L 99-110 [facility] NA 146 mmol/L 136-147 [facility] POTASSIUM 3.4 mmol/L 3.5-5.1 [facility] TCO2 27 mmol/L 20-33 [facility] ANION GAP 9.4 10.0-20.0 [facility] CA 8.3 mg/dL 8.3-10.7 [facility] ALKALINE PHOS 148 U/L 45-117 [facility] TP 5.5 g/dL 6.0-7.8 [facility] ALB 2.7 g/dL 3.5-5.0 [facility] ESRD Dialysis patient Albumin reference range: 2.9-4.4 g/dL GL 2.8 g/dL 2.3-3.5 [facility] A/G 1.0 1.0-2.5 [facility] T. BILIRUBIN 0.6 mg/dL 0.1-1.1 [facility] The Dimension [place] Total Bilirubin is n ot recommended forpatients undergoing treatment with eltrombopag (Promacta)due to the potential for falsely elevated results. ALTI 46 U/L 6-54 [facility] Patients taking Sulfasalazine and/or Sul fapyridine may havefalsely depressed ALT levels. Patients should be drawn forALT before the initial administration of either drug. AST 32 U/L 6-38 [facility] Patients taking Sulfasalazine and/or Sul fapyridine may havefalsely depressed AST levels. Patients should be drawn forAST before the initial administration of either drug. ID Date Data Source [id number] 05/21/2020 04:46:00 AM EDT [facility] Name Value Range Interpretation Code Description Data Rosa rce(s) Supporting Document(s) WBC 13.24 x10E3/uL 4.0-10.5 [facility] RBC 2.89 x10E6/uL 4.20-5.40 [facility] Hemoglobin 8.8 g/dL 12.0-16.0 [facility] Hematocrit 26.9 % 37.0-47.0 [facility] MCV 93.1 fL 81.0-99.0 [facility] MCH 30.4 pg 27.0-31.0 [facility] MCHC 32.7 g/dL 32.7-35.6 [facility] RDW 15.1 % 11.5-14.0 [facility] Platelet count 153 x10E3/uL 150-450 [facility] ital MPV 9.7 fl 6.9-9.5 H [facility] Neutrophils 94.0 % 34-64 [facility] Lymphocytes 2.4 % 25-45 L [facility] Monocytes 2.0 % 1.7-10.6 N [facility] Eosinophils 0 % 0.4-7.0 L [facility] Basophils 0.1 % 0.1-2.0 [facility] Imm. Gran. 1.5 % 0.1-2.0 [facility] Abs. Neutro. 12.45 x10E3/uL 1.2-7.6 [facility] Abs. Lymph. 0.32 x10E3/uL 1.0-3.5 [facility] Abs. Mobile. 0.26 x10E3/uL 0.1-1.0 [facility] Abs. Eosin. 0.00 x10E3/uL 0.1-0.7 [facility] Abs. Baso. 0.01 x10E3/uL 0.0-0.1 [facility] Abs. Imm. Gran. 0.20 x10E3/uL 0.0-0.1 [facility] ANRBC% 0 % 0 [facility] DIFFERENTIAL CONFIRMED BY SLIDE REVIEW. ID Date Data Source [id number] 05/21/2020 12:46:00 AM EDT [facility] Name Value Range Interpretation Code Description Data Rosa rce(s) Supporting Document(s) FGLU 326 mg/dL 70-110 [facility] ID Date Data Source [id number] 05/20/2020 08:01:00 PM EDT [facility] Name Value Range Interpretation Code Description Data Rosa rce(s) Supporting Document(s) FGLU 71 mg/dL 70-110 [facility] ID Date Data Source [id number] 05/20/2020 03:28:00 PM EDT [facility] Name Value Range Interpretation Code Description Data Rosa rce(s) Supporting Document(s) VANCOMYCIN TROU 19.1 ug/mL 5-10 [facility] FOR SKIN AND SKIN STRUCTURE INFECTIONS, GUIDELINES RECOMMENDA TROUGH OF 10. FOR SEVERE INFECTIONS, (PNEUMONIA, OSTEOMYELITIS, MENINGITISAND BACTEREMIA) A TARGET TROUGH OF 15 TO 20 IS RECOMMENDED. ID Date Data Source [id number] 05/20/2020 11:56:00 AM EDT [facility] [place] [id number] NOTEPATIENT NAME: ELA PONCE PHYSICIAN: MICHAEL WANG, MDAUTHOR: Breezy [place], Zhang. DATE: 05/18/20 MR#: [id number] NOTE DATE: 05/20/20 RM#: [id number] TIME: 1210 : 45SubjectiveCC/Hx Present IllnessBack painEvents Since Last EntryCurrently alert oriented x1. Very poor historian. On chronic oxygen. Furtherhistory limited. Reported thirst, would like to drink some water. Toleratingapplesauce . Seems more responsive today.ObjectiveVital SignsVital Signs-24 HRS05/[id number] 3329 2145 0209Temp 99.0 98.7 97.6Pulse 99 83 95Resp 18 18 20B/P 132/78 154/72 158/73B/P MeanPulse Ox 96 94 96O2 Delivery Nasal cannula Nasal cannula Nasal cannulaO2 Flow Rate 3 3L 2QOdS498/05/20 [id number] 0748 0902 0922Temp 97.8Pulse 107Resp 24B/P 188/103 161/78 161/78B/P MeanPulse Ox 96O2 Delivery MD AT BEDSIDE Nasal cannula Nasal cannulaO2 Flow Rate 3LNC 3L 2ArR2Xziudi/OutputIntake/Output Summary 24 hours05/19 1900 05/20 0700Intake Total [...] stenosis, possible concern for discitis. Patient transferred [facility] for MRI thoracic and lumbar spine.-We [...] pyelonephritis on CT abdomen pelvis-Continue with Zosyn id-Gslrfl-rv urine culture.5. HLD (hyperlipidemia)Status ChronicA&PContinue statin6. Spinal stenosisStatus ChronicA&PChronic history of spinal stenosis continue with pain management.7. DepressionStatus ChronicA&PContinue with duloxetine., BuSpar8. HypothyroidismStatus ChronicA&PCheck TSH.-Continue with levothyroxine.9. HTN (hypertension)Status ChronicA&P-Continue with lisinopril and increase hydralazine 50 mg p.o. twice daily.-Monitor blood pressure.10. CKD (chronic kidney disease)Status ChronicA&PHistory of CKD. SU at [facility].-Monitor renal function.11. DiabetesStatus ChronicA&PHypoglycemia, Levemir dose reduced, continue NovoLog via protocol, closemonitoring,12. AnxietyStatus AcuteA&Mendoza chronic benzodiazepines. Will continue.13. PVD (peripheral vascular disease)Status ChronicA&PHistory of stent placement.Continue with Plavix, statin-Continue to monitor.14. DebilityStatus ChronicA&P-Supportive care-Consider PT/OT when patient is more alert.15. HypoalbuminemiaStatus ChronicA&PEncourage p.o. intake. Nutrition supplementation.Ensure p.o. 3 times daily.16. Polysubstance abuseStatus ChronicA&PThiamine, folic acid, multivitamin, Ativan as needed for npdpkxbmpy72. HypernatremiaStatus AcuteA&PLikely secondary to IV fluids, encourage oral hydration. Patient currentlydrinking lots of water.Additional [id number]-afk female patient underlying medical history of COPD O2 dependent,spinal stenosis, depression, dyslipidemia, type 2 diabetes, nicotine addiction,anxiety, hypothyroidism, debility, CKD, peripheral vascular disease,hypoalbuminemia, polysubstance abuse, initially admitted to [facility] for right upper lobe pneumonia, sepsis, deconditioning with frequentfall, transferred given complains of back pain and worsening leukocytosisDVT prophylaxis Heparin subcuDisposition pending clinical improvement we will reattempt to get MRIResuscitation status Full codeCase discussed with family caseworker, nursing staffVTE ProphylaxisVTE Prophylaxis: Heparin subcu.DATE SIGNED: 05/20/20 Electronically SignedTIME SIGNED: 1210 SAAD FRIED MD Name Value Range Interpretation Code Description Data Rosa rce(s) Supporting Document(s) ID Date Data Source [id number] 05/20/2020 09:32:00 PM EDT [facility] Name Value Range Interpretation Code Description Data Rosa rce(s) Supporting Document(s) FGLU 341 mg/dL 70-110 [facility] ID Date Data Source [id number] 05/21/2020 02:05:00 AM EDT [facility] Name Value Range Interpretation Code Description Data Rosa rce(s) Supporting Document(s) FGLU 316 mg/dL 70-110 [facility] ID Date Data Source [id number] 05/20/2020 06:21:00 AM EDT [facility] Name Value Range Interpretation Code Description Data Rosa rce(s) Supporting Document(s) USTSH 0.82 uIU/mL 0.270-4.200 [facility] ID Date Data Source [id number] 05/20/2020 05:41:00 AM EDT [facility] Name Value Range Interpretation Code Description Data Rosa rce(s) Supporting Document(s) C-REACTIVE PROT 4.82 mg/dL 0.00-0.49 [facility] ID Date Data Source [id number] 05/20/2020 05:41:00 AM EDT [facility] Name Value Range Interpretation Code Description Data Rosa rce(s) Supporting Document(s) MAGNESIUM 2.1 mg/dL 1.6-2.6 [facility] ID Date Data Source [id number] 05/20/2020 05:41:00 AM EDT [facility] Name Value Range Interpretation Code Description Data Rosa rce(s) Supporting Document(s) GLU 253 mg/dL 70-110 [facility] Patients taking Sulfasalazine may have f alsely depressedGlucose levels. Patients taking Sulfapyridine may havefalsely elevated Glucose levels. Patients should be drawnfor Glucose before the initial administration of eitherdrug. BUN 20 mg/dL 7-23 [facility] CRE 0.747 mg/dL 0.500-1.300 [facility] GFR > 60 mL/min [facility] CHLORIDE 115 mmol/L 99-110 [facility] NA 150 mmol/L 136-147 [facility] POTASSIUM 3.5 mmol/L 3.5-5.1 [facility] TCO2 26 mmol/L 20-33 [facility] ANION GAP 12.5 10.0-20.0 [facility] CA 8.4 mg/dL 8.3-10.7 [facility] ALKALINE PHOS 151 U/L 45-117 [facility] TP 4.9 g/dL 6.0-7.8 [facility] ALB 2.6 g/dL 3.5-5.0 [facility] ESRD Dialysis patient Albumin reference range: 2.9-4.4 g/dL GL 2.3 g/dL 2.3-3.5 [facility] A/G 1.1 1.0-2.5 [facility] T. BILIRUBIN 0.7 mg/dL 0.1-1.1 [facility] The [employer] [place] Total Bilirubin is n ot recommended forpatients undergoing treatment with eltrombopag (Promacta)due to the potential for falsely elevated results. ALTI 53 U/L 6-54 [facility] Patients taking Sulfasalazine and/or Sul fapyridine may havefalsely depressed ALT levels. Patients should be drawn forALT before the initial administration of either drug. AST 59 U/L 6-38 [facility] Patients taking Sulfasalazine and/or Sul fapyridine may havefalsely depressed AST levels. Patients should be drawn forAST before the initial administration of either drug. ID Date Data Source [id number] 05/20/2020 05:30:00 AM EDT [facility] Name Value Range Interpretation Code Description Data Rosa rce(s) Supporting Document(s) WBC 13.75 x10E3/uL 4.0-10.5 [facility] RBC 2.80 x10E6/uL 4.20-5.40 [facility] Hemoglobin 8.3 g/dL 12.0-16.0 [facility] Hematocrit 26.2 % 37.0-47.0 [facility] MCV 93.6 fL 81.0-99.0 [facility] MCH 29.6 pg 27.0-31.0 N [facility] MCHC 31.7 g/dL 32.7-35.6 [facility] RDW 14.9 % 11.5-14.0 [facility] Platelet count 137 x10E3/uL 150-450 [facility] MPV 10.0 fl 6.9-9.5 [facility] Neutrophils 93.6 % 34-64 [facility] Lymphocytes 2.6 % 25-45 [facility] Monocytes 1.9 % 1.7-10.6 [facility] Eosinophils 0 % 0.4-7.0 [facility] Basophils 0.1 % 0.1-2.0 [facility] Imm. Gran. 1.8 % 0.1-2.0 [facility] Abs. Neutro. 12.87 x10E3/uL 1.2-7.6 [facility] Abs. Lymph. 0.36 x10E3/uL 1.0-3.5 [facility] Abs. Mobile. 0.26 x10E3/uL 0.1-1.0 [facility] Abs. Eosin. 0.00 x10E3/uL 0.1-0.7 [facility] Abs. Baso. 0.01 x10E3/uL 0.0-0.1 [facility] Abs. Imm. Gran. 0.25 x10E3/uL 0.0-0.1 [facility] ANRBC% 0 % 0 [facility] DIFFERENTIAL CONFIRMED BY SLIDE REVIEW. ID Date Data Source [id number] 05/20/2020 05:14:00 AM EDT [facility] ANTI-COAGULANTS PT.IS TAKING: None Name Value Range Interpretation Code Description Data Rosa rce(s) Supporting Document(s) INR 0.92 0.91-1.09 [facility] INR THERAPEUTIC RANGES Prophylaxis of ve nous thrombosis ] (high risk surgery) ]Treatment of venous thrombosis ]Treatment of pulmonary embolism ]Prevention of systemic embolism ] 2.0-3.0Tissue heart valves ]Acute myocardial infarction ]Valvular disease ]Atrial fibrillation ]Recurrent systemic embolism ] Mechanical prosthetic heart valves -------- 2.5-3.5 ID Date Data Source [id number] 05/21/2020 02:12:00 PM EDT [facility] Name Value Range Interpretation Code Description Data Rosa rce(s) Supporting Document(s) FGLU 170 mg/dL 70-110 [facility] ID Date Data Source [id number] 05/20/2020 09:34:00 AM EDT [facility] Name Value Range Interpretation Code Description Data Rosa rce(s) Supporting Document(s) MRSA/SAUR SCRN [facility] l S[facility] ID Date Data Source [id number] 05/19/2020 06:44:00 PM EDT [facility] Name Value Range Interpretation Code Description Data Rosa rce(s) Supporting Document(s) FGLU 53 mg/dL 70-110 [facility] ID Date Data Source [id number] 05/19/2020 04:55:00 PM EDT [facility] [address] [id number] NOTEPATIENT NAME: ELA PONCE PHYSICIAN: MICHAEL WANG, MDAUTHOR: Breezy GA, Zhang. DATE: 05/18/20 MR#: [id number] NOTE DATE: 05/19/20 RM#: [id number] TIME: 1715 [...] Nasal cannulaO2 Flow Rate 2LPM 3LPM 2 5CxW93605/19 0856TempPulseRespB/P 162/82B/P MeanPulse OxO2 Delivery Nasal cannulaO2 Flow Rate 1ImZ0Oyqhdy/OutputIntake/Output Summary 24 hours05/18 1900 05/19 0700Intake Total [...] POSodium Chloride (SODIUM CHLORIDE 0.9%) 1,000 ML .[id number] IVSodium Chloride (Saline Flush Syr(10ML)) 10 ML QIDPRN PRN IVExamGeneral Appearance Response to verbal and tactile stimuli, Intermittentagitation, alert oriented x1Head normocephalicENT dry mucosal membranesEye AssessementR,L,Bilateral bilateral (Pa tient combative)Neck no JVDCardiovascular regular rate, no gallop, no rub, normal heart soundsRespiratory clear to auscultation (anteriorly), no distress, aerating well, onoxygenAbdomen soft, no distention, normal bowel sounds, no guardingUrinary no flank pain, Gacria catheterExtremities no cyanosis, no edema, normal pulsesMuscoskeletal [...] stenosis, possible concern for discitis. Patient transferred [facility] for MRI thoracic and lumbar spine.-We [...] pyelonephritis on CT abdomen pelvis-Continue with Zosyn wl-Lihbyq-av urine culture.5. HLD (hyperlipidemia)Status ChronicA&PContinue statin6. Spinal stenosisStatus ChronicA&PChronic history of spinal stenosis continue with pain management.7. DepressionStatus ChronicA&PContinue with duloxetine., BuSpar8. HypothyroidismStatus ChronicA&PCheck TSH.-Continue with levothyroxine.9. HTN (hypertension)Status ChronicA&P-Continue with lisinopril and hydralazine.-Monitor blood pressure.10. CKD (chronic kidney disease)Status ChronicA&PHistory of CKD. SU at [facility]. Creatinine today 0.9.-Monitor renal function.11. DiabetesStatus ChronicA&PHyperglycemia, [...] acid, multivitamin, Ativan as needed for withdrawalAdditional [id number] female patient underlying medical history of COPD O2 dependent,spinal stenosis, depression, dyslipidemia, type 2 diabetes, nicotine addiction,anxiety, hypothyroidism, debility, CKD, peripheral vascular disease,hypoalbuminemia, polysubstance abuse, initially admitted to [facility] for right upper lobe pneumonia, sepsis, deconditioning with frequentfall, transferred given complains of back pain and worsening leukocytosisDVT prophylaxis Heparin subcuDisposition pending clinical improvement we will reattempt to get MRIResuscitation status Full codeCase discussed with family caseworker, nursing staffVTE ProphylaxisVTE Prophylaxis: Heparin subcu.DATE SIGNED: 05/19/20 Electronically SignedTIME SIGNED: [id number] SAAD FRIED MD Name Value Range Interpretation Code Description Data Rosa rce(s) Supporting Document(s) ID Date Data Source [id number] 05/19/2020 05:09:00 PM EDT [facility] Name Value Range Interpretation Code Description Data Rosa rce(s) Supporting Document(s) VANCOMYCIN TROU 14.4 ug/mL 5-10 [facility] FOR [facility] AND SKIN STRUCTURE INFECTIONS, GUIDELINES RECOMMENDA TROUGH OF 10. FOR SEVERE INFECTIONS, (PNEUMONIA, OSTEOMYELITIS, MENINGITISAND BACTEREMIA) A TARGET TROUGH OF 15 TO 20 IS RECOMMENDED. ID Date Data Source [id number] 05/19/2020 04:37:00 PM EDT [facility] Name Value Range Interpretation Code Description Data Rosa rce(s) Supporting Document(s) FGLU 174 mg/dL 70-110 [facility] ID Date Data Source [id number] 05/19/2020 08:46:00 AM EDT [facility] Name Value Range Interpretation Code Description Data Rosa rce(s) Supporting Document(s) CKI 200 U/L 17-150 [facility] ID Date Data Source [id number] 05/19/2020 07:39:00 PM EDT [facility] jer Name Value Range Interpretation Code Description Data Rosa [facility](s) Supporting Document(s) FGLU 337 mg/dL 70-110 [facility] ID Date Data Source [id number] 05/19/2020 07:11:00 AM EDT [facility] Name Value Range Interpretation Code Description Data Rosa [facility](s) Supporting Document(s) GLU 319 mg/dL 70-110 [facility] Patients taking Sulfasalazine may have f alsely depressedGlucose levels. Patients taking Sulfapyridine may havefalsely elevated Glucose levels. Patients should be drawnfor Glucose before the initial administration of eitherdrug. BUN 27 mg/dL 7-23 [facility] CRE 0.993 mg/dL 0.500-1.300 [facility] GFR 58 mL/min [facility] CHLORIDE 111 mmol/L 99-110 [facility] NA 146 mmol/L 136-147 [facility] POTASSIUM 3.9 mmol/L 3.5-5.1 [facility] TCO2 27 mmol/L 20-33 [facility] ANION GAP 11.9 10.0-20.0 [facility] CA 8.7 mg/dL 8.3-10.7 [facility] ALKALINE PHOS 110 U/L 45-117 [facility] TP 5.4 g/dL 6.0-7.8 [facility] ALB 2.6 g/dL 3.5-5.0 [facility] ESRD Dialysis patient Albumin reference range: 2.9-4.4 g/dL GL 2.8 g/dL 2.3-3.5 [facility] A/G 0.9 1.0-2.5 [facility] T. BILIRUBIN 0.5 mg/dL 0.1-1.1 [facility] The Dimension [place] Total Bilirubin is n ot recommended forpatients undergoing treatment with eltrombopag (Promacta)due to the potential for falsely elevated results. ALTI 40 U/L 6-54 [facility] Patients taking Sulfasalazine and/or Sul fapyridine may havefalsely depressed ALT levels. Patients should be drawn forALT before the initial administration of either drug. AST 32 U/L 6-38 [facility] Patients taking Sulfasalazine and/or Sul fapyridine may havefalsely depressed AST levels. Patients should be drawn forAST before the initial administration of either drug. ID Date Data Source [id number] 05/19/2020 06:45:00 AM EDT [facility] Name Value Range Interpretation Code Description Data Rosa rce(s) Supporting Document(s) WBC 13.42 x10E3/uL 4.0-10.5 [facility] RBC 2.98 x10E6/uL 4.20-5.40 [facility] Hemoglobin 9.0 g/dL 12.0-16.0 [facility] Hematocrit 28.1 % 37.0-47.0 L [facility] MCV 94.3 fL 81.0-99.0 [facility] MCH 30.2 pg 27.0-31.0 [facility] MCHC 32.0 g/dL 32.7-35.6 [facility] RDW 15.0 % 11.5-14.0 [facility] Platelet count 144 x10E3/uL 150-450 [facility] MPV 10.0 fl 6.9-9.5 [facility] Neutrophils 88.7 % 34-64 [facility] Lymphocytes 3.6 % 25-45 L [facility] Monocytes 5.4 % 1.7-10.6 [facility] Eosinophils 0.8 % 0.4-7.0 [facility] Basophils 0.1 % 0.1-2.0 [facility] Imm. Gran. 1.4 % 0.1-2.0 [facility] Abs. Neutro. 11.89 x10E3/uL 1.2-7.6 [facility] Abs. Lymph. 0.48 x10E3/uL 1.0-3.5 [facility] Abs. Mobile. 0.73 x10E3/uL 0.1-1.0 [facility] Abs. Eosin. 0.11 x10E3/uL 0.1-0.7 [facility] Abs[facility] Baso. 0.02 x10E3/uL 0.0-0.1 [facility] Abs. Imm. Gran. 0.19 x10E3/uL 0.0-0.1 H [facility] spital ANRBC% 0 % 0 [facility] DIFFERENTIAL CONFIRMED BY SLIDE REVIEW. ID Date Data Source [id number] 05/19/2020 02:06:00 AM EDT [facility] Name Value Range Interpretation Code Description Data Rosa rce(s) Supporting Document(s) GLU 348 mg/dL 70-110 [facility] Patients taking Sulfasalazine may have f alsely depressedGlucose levels. Patients taking Sulfapyridine may havefalsely elevated Glucose levels. Patients should be drawnfor Glucose before the initial administration of eitherdrug. BUN 27 mg/dL 7-23 [facility] CRE 0.991 mg/dL 0.500-1.300 [facility] GFR 58 mL/min [facility] CHLORIDE 111 mmol/L 99-110 [facility] NA 146 mmol/L 136-147 [facility] POTASSIUM 4.3 mmol/L 3.5-5.1 [facility] TCO2 27 mmol/L 20-33 [facility] ANION GAP 12.3 10.0-20.0 [facility] CA 8.9 mg/dL 8.3-10.7 [facility] ALKALINE PHOS 112 U/L 45-117 [facility] TP 5.3 g/dL 6.0-7.8 [facility] ALB 2.6 g/dL 3.5-5.0 [facility] ESRD Dialysis patient Albumin reference range: 2.9-4.4 g/dL GL 2.7 g/dL 2.3-3.5 [facility] A/G 1.0 1.0-2.5 [facility] T. BILIRUBIN 0.6 mg/dL 0.1-1.1 [facility] [employer] [facility] [place] Total Bilirubin is n ot recommended forpatients undergoing treatment with eltrombopag (Promacta)due to the potential for falsely elevated results. ALTI 41 U/L 6-54 [facility] Patients taking Sulfasalazine and/or Sul fapyridine may havefalsely depressed ALT levels. Patients should be drawn forALT before the initial administration of either drug. AST 30 U/L 6-38 [facility] Patients taking Sulfasalazine and/or Sul fapyridine may havefalsely depressed AST levels. Patients should be drawn forAST before the initial administration of either drug. ID Date Data Source [id number] 05/19/2020 01:55:00 AM EDT [facility] Name Value Range Interpretation Code Description Data Rosa rce(s) Supporting Document(s) WBC 14.51 x10E3/uL 4.0-10.5 [facility] RBC 3.16 x10E6/uL 4.20-5.40 [facility] Hemoglobin 9.5 g/dL 12.0-16.0 [facility] Hematocrit 29.7 % 37.0-47.0 [facility] MCV 94.0 fL 81.0-99.0 [facility] MCH 30.1 pg 27.0-31.0 [facility] MCHC 32.0 g/dL 32.7-35.6 [facility] RDW 15.0 % 11.5-14.0 [facility] Platelet count 158 x10E3/uL 150-450 N [facility] ital MPV 9.9 fl 6.9-9.5 H [facility] Neutrophils 88.5 % 34-64 [facility] Lymphocytes 3.6 % 25-45 L [facility] Monocytes 5.7 % 1.7-10.6 [facility] Eosinophils 0.8 % 0.4-7.0 [facility] Basophils 0.2 % 0.1-2.0 [facility] Imm. Gran. 1.2 % 0.1-2.0 [facility] Hospital Abs. Neutro. 12.84 x10E3/uL 1.2-7.6 [facility] Abs. Lymph. 0.52 x10E3/uL 1.0-3.5 [facility] Abs. Mobile. 0.83 x10E3/uL 0.1-1.0 [facility] Abs. Eosin. 0.11 x10E3/uL 0.1-0.7 [facility] Abs. Baso. 0.03 x10E3/uL 0.0-0.1 N [facility] l Abs. Imm. Gran. 0.18 x10E3/uL 0.0-0.1 [facility] ANRBC% 0 % 0 [facility] DIFFERENTIAL CONFIRMED BY SLIDE REVIEW. ID Date Data Source [id number] 05/18/2020 11:40:00 PM EDT [facility] ANTI-COAGULANTS PT.IS TAKING: Plavix Name Value Range Interpretation Code Description Data Rosa rce(s) Supporting Document(s) APTT 22.2 SECONDS 21.2-31.2 [facility] NOTE NEW REFERENCE RANGE EFFECTIVE ID Date Data Source [id number] 05/18/2020 11:40:00 PM EDT [facility] ANTI-COAGULANTS PT.IS TAKING: Plavix Name Value Range Interpretation Code Description Data Rosa rce(s) Supporting Document(s) INR 0.91 0.91-1.09 [facility] INR THERAPEUTIC RANGES Prophylaxis of ve nous thrombosis ] (high risk surgery) ]Treatment of venous thrombosis ]Treatment of pulmonary embolism ]Prevention of systemic embolism ] 2.0-3.0Tissue heart valves ]Acute myocardial infarction ]Valvular disease ]Atrial fibrillation ]Recurrent systemic embolism ] Mechanical prosthetic heart valves -------- 2.5-3.5 ID Date Data Source [id number] 05/18/2020 11:01:00 PM EDT [facility] Name Value Range Interpretation Code Description Data Rosa rce(s) Supporting Document(s) TROPONIN HS 67.8 ng/L 3.0-82.3 [facility] ID Date Data Source [id number] 05/18/2020 11:01:00 PM EDT [facility] Name Value Range Interpretation Code Description Data Rosa rce(s) Supporting Document(s) LACTIC ACID COMFORT 0.4 mmol/L 0.4-2.0 [facility] ID Date Data Source [id number] 05/18/2020 11:00:00 PM EDT [facility] Name Value Range Interpretation Code Description Data Rosa rce(s) Supporting Document(s) ESR 36 MM/HR 0-20 H [facility] ID Date Data Source [id number] 05/25/2020 12:12:00 PM EDT [facility] Name Value Range Interpretation Code Description Data Rosa rce(s) Supporting Document(s) [facility] ID Date Data Source [id number] 05/25/2020 12:11:00 PM EDT [facility] Name Value Range Interpretation Code Description Data Rosa rce(s) Supporting Document(s) [facility] ID Date Data Source [id number] 05/18/2020 10:59:00 PM EDT [facility] Name Value Range Interpretation Code Description Data Rosa rce(s) Supporting Document(s) C-REACTIVE PROT 3.66 mg/dL 0.00-0.49 [facility] ID Date Data Source [id number] 05/18/2020 09:29:00 PM EDT [facility] [address] [id number] AND PHYSICALPATIENT NAME: ELA PONCE MR#: [id number] PHYSICIAN: MICHAEL WANG MDAUTHOR: Michael Wang MD DATE: 05/18/20 RM#: [id number] & PHYSICAL DATE: 05/18/20 : 45EVALUATION TIME: Chi Complaint/Admit [facility] MRIHistory of Presenting [id number] female past medical history of COPD, spinal stenosis, depression,hyperlipidemia, type 2 diabetes, nicotine addiction, anxiety, hypothyroidism,debility, CKD, peripheral vascular disease, hypoalbuminemia, was initiallyadmitted at [facility] being treated for right upper lobe pneumonia andsepsis on antibiotics and extreme deconditioning, unsteady gait and frequentfalls during the hospitalization patient complained of back pain on examinationwas noted to have severe tenderness over the lumbar and thoracic spine. CRPinitially was 6.5 later became elevated to 25 with corresponding rise and WBCto 23. Decision was made to initially transfer patient to [facility] for an MRI momo done to rule out discitis and then patient be transferred back to [facility] however upon arrival at [facility] patient refused the MRI and patient wasbrought back to [facility]. At [facility] patient became agitated andsomewhat combative sustained ecchymosis in bilateral upper extremities.Patient had to be given B-52. [facility] to [facility] again for the second time patientbecame agitated. At [facility] patient was also found to have UTI, CT ofthe abdomen and pelvis showed some questionable/possible pyelonephritis.Patient was given vancomycin and Zosyn at [facility] and transferred to [facility]. When I evaluated patient patient was [...] patient sedated.ExamVital SignsVital Signs-24 HRS05/18 05/18 05/19 05/19117810 5009 0132 0543Temp 97.9 97.4 97.8Pulse 110 99 100Resp 17 17 17B/P 160/91 159/63 160/67B/P MeanPulse Ox 92 98 93O2 Delivery Nasal cannula Nasal cannula Nasal cannula Nasal cannulaO2 Flow Rate 2LPM 3LPM 2 8XyM2Dmcqtphc ExaminationGeneral Appearance sedated, Response to verbal and [...] %) 0ESR (0 - 20 MM/HR) 36 H04/989226YoqellcmyYbexpv (136 - 147 mmol/L) 146Potassium (3.5 - [...] x10E3/uL) 0.02Nucleated RBC % (auto) (0 %) 3Dusqobbctqmq86/08 2200 BLOOD: Blood Culture - RECD05/18 2199 BLOOD: Blood Culture - [facility]CDImirav[facility]All [facility].Chest x-ray:Impression:Persistent parenchymal disease in the right upper [...] leuko cytosis.Concern for discitis. Patient transferred to [facility] for MRI thoracic and lumbarspine.-We will [...] obstructive pulmonary disease)A&P2 L home O2 dependent.-Oxygen . CKD (chronic kidney disease)A&PHistory of CKD. SU at [facility]. Creatinine today 0.9.-Monitor renal function.11. DiabetesA&PPlaced on insulin sliding scale.-Monitor fingersticks.-Patient had hypoglycemic episodes at [facility] and her Levemir dose wasdecreased to 10 [...] rce(s) Supporting Document(s) ID Date Data Source [id number] 05/18/2020 07:05:00 PM EDT [facility] Summary of HospitalizationReason for Ad [...] avail and made arrangements for transfer to [facility] this morining for MRI and PICC [...] rce(s) Supporting Document(s) ID Date Data Source [id number] 05/18/2020 06:53:00 PM EDT [facility] Discharge Appointments Outpatient Tests *patient [...] rce(s) Supporting Document(s) ID Date Data Source [id number] 05/18/2020 02:46:00 PM EDT [facility] [...] rce(s) Supporting Document(s) ID Date Data Source [id number] 05/18/2020 02:43:00 PM EDT [facility] TSYSORDER [id number] Name Value Range Interpretation Code Description Data Rosa rce(s) Supporting Document(s) ARTERIAL BLOOD GAS pH 7.45 7.35-7.45 [facility] spital ARTERIAL BLOOD GAS PCO2 39.3 mmHg 30-45 [facility] ARTERIAL BLOOD GAS PO2 67 mmHg 75-100 L [facility] ospital ARTERIAL BLOOD GAS HCO3 26.9 meq/L 17-23 H [facility] ARTERIAL BLOOD GAS BASE EXCESS 3.1 -2.0-2.0 H [facility] ARTERIAL BLD GAS O2 SATURATION 94.9 % 90-98 [facility] ARTERIAL BLOOD GAS CTCO2 28.1 mmol/L 23.0-31.0 [facility] Hospital ID Date Data Source [id number] 05/18/2020 03:18:00 PM EDT [facility] l TSYSORDER [id number] Name Value Range Interpretation Code Description Data Rosa rce(s) Supporting Document(s) TROPONIN I 0.071 ng/mL 0.000-0.056 *H [facility] ID Date Data Source [id number] 05/18/2020 03:01:00 PM EDT [facility] l TSYSORDER [id number] Name Value Range Interpretation Code Description Data Rosa rce(s) Supporting Document(s) LACTIC ACID 0.6 mmol/L 0.4-2.0 [facility] ID Date Data Source [id number] 05/18/2020 01:43:00 PM EDT [facility] Exam Number: [id number] EXAMINATI N: 05/18/2020 11:55 EDTU/S GUIDE FOR [...] rce(s) Supporting Document(s) ID Date Data Source [id number] 05/18/2020 10:15:00 AM EDT [facility] spital Name Value Range Interpretation Code Description Data Rosa rce(s) Supporting Document(s) URINE RBC 1-3 /hpf 0-3 [facility] URINE WBC 0-2 /hpf 0-5 H [facility] URINE EPITHELIAL CELLS 2+ /hpf [facility] URINE BACTERIA TRACE NONE SEEN H [facility] URINE MUCUS 1+ NEGATIVE [facility] URINE AMORPHOUS SEDIMENT 3+ [facility] ID Date Data Source [id number] 05/18/2020 10:14:00 AM EDT [facility] ital Name Value Range Interpretation Code Description Data Rosa rce(s) Supporting Document(s) URINE COLOR. YELLOW [facility] URINE APPEARANCE SLIGHTY CLOUDY [facility] URINE GLUCOSE (UA) NEGATIVE mg/dL NEGATIVE [facility] URINE BILIRUBIN NEGATIVE NEGATIVE [facility] URINE KETONE NEGATIVE mg/dL NEGATIVE [facility] SPECIFIC GRAVITY,URINE 1.020 1.005-1.030 [facility] URINE BLOOD NEGATIVE NEGATIVE [facility] PH,URINE 6.5 5.0-9.0 [facility] URINE PROTEIN 4+(>=300) mg/dL NEGATIVE [facility] ital URINE UROBILINOGEN NORMAL(0.2-1) mg/dL 0-1 R [facility] URINE NITRATE NEGATIVE NEGATIVE [facility] URINE LEUKOCYTE ESTERASE NEGATIVE NEGATIVE [facility] ID Date Data Source [id number] 05/18/2020 09:03:00 AM T [facility] l DATE OF EXAMINATION: 05/18/2020 8:18 [...] rce(s) Supporting Document(s) ID Date Data Source [id number] 05/18/2020 09:01:00 AM EDT [facility] [...] in the right upper lobe is likely medical sales representative ofpneumonia and should be followed to complete resolution. IMPRESSION: Msil-ga-corovoqk parenchymal disease in the right upper lobe consistent withpneumonia should be followed to complete resolution. Severe calcified coronary arterial plaque formation likely hemodynamicallysignificant. Electronically signed in [id number] by: Tabitha De La Vega M.D. 05/18/2020 8:56 EDT Name Value Range Interpretation Code Description Data Rosa rce(s) Supporting Document(s) ID Date Data Source [id number] 05/18/2020 09:00:00 AM EDT [facility] [...] rce(s) Supporting Document(s) ID Date Data Source [id number] 05/18/2020 07:17:00 AM EDT [facility] Name Value Range Interpretation Code Description Data Rosa rce(s) Supporting Document(s) COVID-19 NEGATIVE [facility] This lab was ordered by [facility] and reported by [facility]. ID Date Data Source [id number] 05/18/2020 07:36:00 AM EDT [facility] Name Value Range Interpretation Code Description Data [facility] rce(s) Supporting Document(s) COVID-19 NEGATIVE NEGATIVE [facility] Negative results should be treated as pr [...] are for the indentification of SARS-CoV-2 RNA. TcvXWYG-JmM-0 RNA is generally detectable in respiratorysamples during the actue phase of infection. ID Date Data Source [id number] 05/18/2020 07:38:00 AM EDT [facility] Name Value Range Interpretation Code Description Data Rosa rce(s) Supporting Document(s) ERYTHROCYTE SEDIMENTATION RATE 13 mm/hr 0-30 [facility] ID Date Data Source [id number] 05/18/2020 07:03:00 AM EDT [facility] Name Value Range Interpretation Code Description Data Rosa rce(s) Supporting Document(s) C REACTIVE PROTEIN 25.7 mg/L 0.0-3.0 H [facility] ID Date Data Source [id number] 05/18/2020 06:46:00 AM EDT [facility] Name Value Range Interpretation Code Description Data Rosa rce(s) Supporting Document(s) GLUCOSE 258 mg/dL 74-106 H [facility] BLOOD UREA NITROGEN 34 mg/dL 7-18 H [facility] ital CREATININE 1.40 mg/dL 0.6-1.0 H [facility] SODIUM 139 mmol/L 136-145 [facility] POTASSIUM 4.9 mmol/L 3.5-5.1 [facility] CHLORIDE 102 mmol/L 98-107 [facility] CO2 27 mmol/L 21-32 [facility] CALCIUM 9.2 mg/dL 8.5-10.1 [facility] ANION GAP 10.0 mmol/L 5-12 [facility] GLOMERULAR FILTRATION RATE 37 mL/min [facility] GFR IS CALCULATED IN mL/min/1.73m2 STEVENSON L FUNCTION: >90MILDLY DECREASED: 60-89MILDY TO MODERATELY DECREASED: 45-59 MODERATELY TO SEVERELY DECREASED: 30-44SEVERELY DECREASED: 15-29RENAL FAILURE: <15 ID Date Data Source [id number] 05/18/2020 06:36:00 AM EDT [facility] Name Value Range Interpretation Code Description Data Rosa rce(s) Supporting Document(s) WHITE BLOOD COUNT 14.0 K/mm3 4.0-10.0 H [facility] jer RED BLOOD COUNT 3.70 M/mm3 4.00-5.50 L [facility] HEMOGLOBIN 11.3 gm/dL 12.0-16.0 L [facility] HEMATOCRIT 33.4 % 36.0-48.8 L [facility] MEAN CELL VOLUME 90.3 fl 80-96 [facility] MEAN CORPUSCULAR HEMOGLOBIN 30.5 pg 27.0-31.0 [facility] MEAN CORPUSCULAR HGB CONC 33.8 g/dl 32.0-36.0 [facility] RED CELL DISTRIBUTION WIDTH 15.1 % 10.0-14.5 H [facility] PLATELET COUNT 159 K/mm3 172-450 L [facility] MEAN PLATELET VOLUME 10.1 fl 9.0-13.0 [facility] pital GRAN % 85.2 % 50-80.0 H [facility] IG% 2.1 % 0.0-0.2 H [facility] LYMPH % 6.5 % 25.0-50.0 L [facility] MONO % 5.7 % 2.0-10.0 [facility] EOS % 0.4 % 0-5.0 [facility] BASO % 0.1 % 0.0-2.0 [facility] GRAN # 12.0 K/mm3 2.0-8.00 H [facility] IG# 0.3 K/mm3 0.0-0.2 H [facility] LYMPH # 0.9 K/mm3 1.0-5.0 L [facility] MONO # 0.8 K/mm3 0.10-1.20 [facility] EOS # 0.1 K/mm3 0.0-0.5 [facility] BASO # 0.0 K/mm3 0.0-0.2 [facility] ID Date Data Source [id number] 05/17/2020 10:50:00 PM EDT [facility] Name Value Range Interpretation Code Description Data Rosa rce(s) Supporting Document(s) URINE AMPHETAMINES POSITIVE <1000 ng/mL [facility] COCAINE, URINE NEGATIVE <300 ng/mL [facility] THC,URINE POSITIVE <50 ng/mL H [facility] URINE BENZODIAZEPINES POSITIVE <300 ng/mL [facility] ospital URINE,TCA NEGATIVE <1000 ng/mL [facility] IF A NEGATIVE RESULT IS OBTAINED AND ING ESTION OF TRICYCLICANTIDEPRESSANTS IS SUSPECTED, A SERUM SAMPLE SHOULD BEOBTAINED AND TESTED USING AN APPROPRIATE METHOD. URINE BARBITURATES NEGATIVE <300 ng/mL [facility] MDMA NEGATIVE <500 ng/mL [facility] URINE,OPIATES NEGATIVE <300 ng/mL [facility] PCP,URINE NEGATIVE <25 ng/mL [facility] OXYCODONE URINE POSITIVE <100 ng/mL H [facility] l PROPOXYPHENE NEGATIVE <300 ng/mL [facility] THESE TESTS ARE PERFORMED USING AN IMMU NOASSAY FOR THEQUALITATIVE DETERMINATION OF THE PRESENCE OF THE MAJORMETABOLITES OF DRUGS OF ABUSE. THESE TESTS ARE ONLY ASCREENING AND NOT CONFIRMATORY. CLINICAL CONSIDERATION ANDPROFESSIONAL JUDGMENT MUST BE APPLIED TO ANY DRUG OF ABUSETEST RESULT. ID Date Data Source [id number] 05/20/2020 01:16:00 PM EDT [facility] RARE WBCSRARE SECSSMALL NUMBERS GRAM POS BACILLISMALL NUMBERS GRAM-POSITIVE COCCI IN CHAINSRARE GRAM NEGATIVE BACILLIRARE YEAST LIKE Name Value Range Interpretation Code Description Data Rosa rce(s) Supporting Document(s) ORGANISM [facility] COLONY COUNT N [facility] ID Date Data Source [id number] 05/17/2020 12:07:00 PM EDT [facility] DATE OF EXAMINATION: 05/17/2020 7:50 [...] rce(s) Supporting Document(s) ID Date Data Source [id number] 05/19/2020 02:06:00 PM EDT [facility]ital Name Value Range Interpretation Code Description Data Rosa rce(s) Supporting Document(s) SPECIMEN SOURCE Urine . [facility] STREPTOCOCCUS PEUMONIAE AG Negative Negative [facility] er Hospital BODY FLUID CULTURE STERILE Not indicated. . [facility] ORGANISM ID Not indicated. . [facility] PLEASE NOTE: Comment . [facility] [employer] standar ds require aculture to be performed on CSF specimens submitted forbacterial antigen testing. (CAP SANDRA.[id number]) Urine specimenswill not be cultured.Performed at: [address] [id number] Director: Ramu Cota MD, Phone: [phone] ID Date Data Source [id number] 05/19/2020 02:05:00 PM EDT [facility] Name Value Range Interpretation Code Description Data Rosa rce(s) Supporting Document(s) Specimen Source Urine [facility] Streptococcus pneumoniae Ag Negative Negative [facility] Body Fluid Culture, Sterile Not indicated. [facility] Organism ID Not indicated. [facility] Please Note: [facility] [employer] standar ds require a culture to beperformed on CSF specimens submitted for bacterial antigen testing.(CAP SANDRA.[id number]) Urine specimens will not be cultured. ID Date Data Source [id number] 05/18/2020 03:26:00 PM EDT [facility] Is the patient hospitalized ([facility] or [facility])? Y Name Value Range Interpretation Code Description Data Rosa rce(s) Supporting Document(s) L PNEUMO SERO 1 NEGATIVE NEGATIVE N [facility] MANUAL ENTRY RECHECKED Screen for [...] (REFERENCE RANGE= NEGATIVE) ID Date Data Source [id number] 05/17/2020 12:37:00 PM EDT [facility] Name Value Range Interpretation Code Description Data Rosa rce(s) Supporting Document(s) [facility]GIONELLA AG URINE-ANGELES SENT TO [facility] ID Date Data Source [id number] 05/23/2020 08:17:00 AM EDT [facility] Name Value Range Interpretation Code Description Data Rosa rce(s) Supporting Document(s) [facility] ID Date Data Source [id number] 05/23/2020 08:15:00 AM EDT [facility] Name Value Range Interpretation Code Description Data Rosa rce(s) Supporting Document(s) [facility] ID Date Data Source [id number] 05/17/2020 09:02:00 AM [facility] l Name Value Range Interpretation Code Description Data Rosa rce(s) Supporting Document(s) LACTIC ACID 1.4 mmol/L 0.4-2.0 [facility] ID Date Data Source [id number] 05/17/2020 08:39:00 AM [facility] l Name Value Range Interpretation Code Description Data Rosa rce(s) Supporting Document(s) PARTIAL THROMBOPLASTIN TIME 22.5 SECONDS 21.2-27.3 [facility] ID Date Data Source [id number] 05/17/2020 08:39:00 AM [facility] l Name Value Range Interpretation Code Description Data Rosa rce(s) Supporting Document(s) PROTHROMBIN TIME (PATIENT) 9.9 SECONDS 9.1-11.6 [facility] INR 0.95 0.87-1.06 [facility] ID Date Data Source [id number] 05/17/2020 08:07:00 AM [facility] l Name Value Range Interpretation Code Description Data Rosa rce(s) Supporting Document(s) ERYTHROCYTE SEDIMENTATION RATE 14 mm/hr 0-30 [facility] ID Date Data Source [id number] 05/17/2020 07:09:00 AM [facility] l Name Value Range Interpretation Code Description Data Orsa rce(s) Supporting Document(s) WHITE BLOOD COUNT 23.1 K/mm3 4.0-10.0 H [facility] jer RED BLOOD COUNT 3.87 M/mm3 4.00-5.50 L [facility] HEMOGLOBIN 11.7 gm/dL 12.0-16.0 L [facility] HEMATOCRIT 34.6 % 36.0-48.8 L [facility] MEAN CELL VOLUME 89.4 fl 80-96 [facility] MEAN CORPUSCULAR HEMOGLOBIN 30.2 pg 27.0-31.0 H [facility] MEAN CORPUSCULAR HGB CONC 33.8 g/dl 32.0-36.0 [facility] RED CELL DISTRIBUTION WIDTH 15.1 % 10.0-14.5 H [facility] PLATELET COUNT 284 K/mm3 172-450 [facility] MEAN PLATELET VOLUME 9.8 fl 9.0-13.0 [facility] pital GRAN % 82.0 % 50-80.0 H [facility] IG% 1.8 % 0.0-0.2 H [facility] LYMPH % 7.4 % 25.0-50.0 L [facility] MONO % 7.8 % 2.0-10.0 [facility] EOS % 0.9 % 0-5.0 [facility] BASO % 0.1 % 0.0-2.0 [facility] GRAN # 19.0 K/mm3 2.0-8.00 *H [facility] IG# 0.4 K/mm3 0.0-0.2 H [facility] LYMPH # 1.7 K/mm3 1.0-5.0 [facility] MONO # 1.8 K/mm3 0.10-1.20 H [facility] EOS # 0.2 K/mm3 0.0-0.5 [facility] BASO # 0.0 K/mm3 0.0-0.2 [facility] ID Date Data Source [id number] 05/17/2020 07:36:00 AM EDT [facility] l Name Value Range Interpretation Code Description Data Rosa rce(s) Supporting Document(s) C REACTIVE PROTEIN 6.5 mg/L 0.0-3.0 H [facility] ID Date Data Source [id number] 05/17/2020 07:36:00 AM EDT [facility] l Name Value Range Interpretation Code Description Data Rosa rce(s) Supporting Document(s) GLUCOSE 31 mg/dL 74-106 *L [facility] BLOOD UREA NITROGEN 32 mg/dL 7-18 H [facility] ital CREATININE 1.25 mg/dL 0.6-1.0 H [facility] SODIUM 140 mmol/L 136-145 [facility] POTASSIUM 4.4 mmol/L 3.5-5.1 [facility] CHLORIDE 102 mmol/L 98-107 [facility] CO2 29 mmol/L 21-32 [facility] CALCIUM 9.3 mg/dL 8.5-10.1 [facility] ANION GAP 9.0 mmol/L 5-12 [facility] GLOMERULAR FILTRATION RATE 42 mL/min [facility] GFR IS CALCULATED IN mL/min/1.73m2 [facility] L FUNCTION: >90MILDLY DECREASED: 60-89MILDY TO MODERATELY DECREASED: 45-59 MODERATELY TO SEVERELY DECREASED: 30-44SEVERELY DECREASED: 15-29RENAL FAILURE: <15 AST 47 U/L 15-37 H [facility] ALT 51 U/L 12-78 [facility] ALKALINE PHOSPHATASE 121 U/L 46-116 H [facility] pital TOTAL BILIRUBIN 0.3 mg/dL 0.2-1.0 [facility] TOTAL PROTEIN 5.9 g/dl 6.4-8.2 L [facility] ALBUMIN 3.1 gm/dL 3.4-5.0 L [facility] ID Date Data Source [id number] 05/18/2020 03:25:00 PM EDT [facility] Name Value Range Interpretation Code Description Data Rosa rce(s) Supporting Document(s) MRSA/SAUR SCRN [facility] S.AUREUS SCREEN N [facility] al MRSA SCREEN N [facility] ID Date Data Source [id number] 05/17/2020 12:28:00 AM EDT [facility] l HistoryChief Complaint/Admit ReasonRigh t upper [...] medications who presented to emergency department of [facility] on 05/10/2020 with generalized malaise, severe weakness, cough and intractable back pain. She was found to have leucocytosis of18.2 and right upper and right lower lobe pneumonia with mediastinal lymphadenopathy. Of note Mrs Ponce was seen a day before her arrival here at [facility] and was discharged home with Cefdinir [...] normal capillary refill, no calf tendernessNeurologic/Psychiatric alert, patternator II-XII nml as tested, normal mood/affect, no [...] discussed with , significant otherCase discussed with family caseworker, nursing staffCopies toFamily Provider: Smoking Cessation Counseling* I have counseled the patient on the dangers of tobacco use for more] than 3 minutes.* The patient was advised to quit tobacco use. I reviewed the various strategiesof quitting with the patient. VTE ProphylaxisVTE Prophylaxis: Heparin SC * Decisions reached: [ ]. VTE ProphylaxisVTE Prophylaxis: Heparin SC ADDENDUM: 05/17/20 0028 ADDENDUM: Zhnana Holcomb on 05/17/20 at 0025 Correction to PLAN DISCUSSED- errorPlan discussed with patient's Son over the phone, not a or significant other. Software related error. Name Value Range Interpretation Code Description Data Rosa rce(s) Supporting Document(s) ID Date Data Source [id number] 05/17/2020 12:22:00 AM ED[facility] [...] medications who presented to emergency department of [facility] on 05/10/2020 with generalized malaise, severe weakness, cough and intractable back pain. She was found to have leucocytosis of18.2 and right upper and right lower lobe pneumonia with mediastinal lymphadenopathy. Of note Mrs Ponce was seen a day before her arrival here at [facility] and was discharged home with Cefdinir [...] normal capillary refill, no calf tendernessNeurologic/Psychiatric alert, patternator II- XII nml as tested, normal mood/affect, [...] discussed with , significant otherCase discussed with family caseworker, nursing staffCopies toFamily Provider: VTE ProphylaxisVTE Prophylaxis: [...] rce(s) Supporting Document(s) ID Date Data Source [id number] [facility] Interpretation Code Description Data Rosa rce(s) Supporting Document(s) ERYTHROCYTE SEDIMENTATION RATE 28 mm/hr 0-30 [facility] ID Date Data Source [id number] 05/16/2020 06:49:00 AM [facility] Name Value Range Interpretation Code Description Data [facility] rce(s) Supporting Document(s) WHITE BLOOD COUNT 13.3 K/mm3 4.0-10.0 H [facility] jer RED BLOOD COUNT 3.60 M/mm3 4.00-5.50 L [facility] HEMOGLOBIN 10.9 gm/dL 12.0-16.0 [facility] HEMATOCRIT 32.5 % 36.0-48.8 [facility] MEAN CELL VOLUME 90.3 fl 80-96 [facility] MEAN CORPUSCULAR HEMOGLOBIN 30.3 pg 27.0-31.0 [facility] MEAN CORPUSCULAR HGB CONC 33.5 g/dl 32.0-36.0 [facility] RED CELL DISTRIBUTION WIDTH 14.7 % 10.0-14.5 H [facility] PLATELET COUNT 174 K/mm3 172-450 [facility] MEAN PLATELET VOLUME 10.0 fl 9.0-13.0 [facility] pital GRAN % 93.2 % 50-80.0 H [facility] IG% 1.4 % 0.0-0.2 H [facility] LYMPH % 2.4 % 25.0-50.0 *L [facility] MONO % 3.0 % 2.0-10.0 [facility] EOS % 0.0 % 0-5.0 [facility] BASO % 0.0 % 0.0-2.0 [facility] GRAN # 12.4 K/mm3 2.0-8.00 H [facility] IG# 0.2 K/mm3 0.0-0.2 [facility] LYMPH # 0.3 K/mm3 1.0-5.0 L [facility] MONO # 0.4 K/mm3 0.10-1.20 [facility] EOS # 0.0 K/mm3 0.0-0.5 [facility] BASO # 0.0 K/mm3 0.0-0.2 [facility] ID Date Data Source [id number] 05/16/2020 07:12:00 AM EDT [facility] Name Value Range Interpretation Code Description Data Rosa rce(s) Supporting Document(s) GLUCOSE 323 mg/dL 74-106 H [facility] BLOOD UREA NITROGEN 24 mg/dL 7-18 H [facility] ital CREATININE 1.12 mg/dL 0.6-1.0 H [facility] SODIUM 136 mmol/L 136-145 [facility] POTASSIUM 5.3 mmol/L 3.5-5.1 H [facility] CHLORIDE 99 mmol/L 98-107 [facility] CO2 29 mmol/L 21-32 [facility] CALCIUM 9.1 mg/dL 8.5-10.1 [facility] ANION GAP 8.0 mmol/L 5-12 [facility] GLOMERULAR FILTRATION RATE 48 mL/min [facility] GFR IS CALCULATED IN mL/min/1.73m2 STEVENSON L FUNCTION: >90MILDLY DECREASED: 60-89MILDY TO MODERATELY DECREASED: 45-59 MODERATELY TO SEVERELY DECREASED: 30-44SEVERELY DECREASED: 15-29RENAL FAILURE: <15 AST 28 U/L 15-37 [facility] ALT 41 U/L 12-78 [facility] ALKALINE PHOSPHATASE 107 U/L 46-116 [facility] pital TOTAL BILIRUBIN 0.3 mg/dL 0.2-1.0 [facility] TOTAL PROTEIN 5.9 g/dl 6.4-8.2 L [facility] ALBUMIN 2.7 gm/dL 3.4-5.0 L [facility] ID Date Data Source [id number] 05/15/2020 03:58:00 PM EDT [facility] Progress Note GeneralEncounter:Chart re viewed. [...] normal capillary refill, no calf tendernessNeurologic/Psychiatric alert, patternator II-XII nml as tested, normal mood/affect, no [...] rce(s) Supporting Document(s) ID Date Data Source [id number] 05/15/2020 12:05:00 PM EDT [facility] Progress Note GeneralEncounter:Chart re viewed. Patient [...] no calf tenderness, no pedal edemaNeurologic/Psychiatric alert, patternator II-XII nml as tested, normal mood/affect, no [...] lumbar region A&PUnlikely surgical candidate due to [id number] use and nonadherence 10. Ambulatory dysfunction A&PSevere [...] sparrow(s) Supporting Document(s) ID Date Data Source [id number] 05/15/2020 07:25:00 AM EDT [facility] Name Value Range Interpretation Code Description Data [facility] Supporting Document(s) GLUCOSE 138 mg/dL 74-106 H [facility] BLOOD UREA NITROGEN 27 mg/dL 7-18 H [facility] ital CREATININE 1.08 mg/dL 0.6-1.0 H [facility] SODIUM 139 mmol/L 136-145 [facility] POTASSIUM 4.6 mmol/L 3.5-5.1 [facility] CHLORIDE 103 mmol/L 98-107 [facility] CO2 26 mmol/L 21-32 [facility] CALCIUM 9.1 mg/dL 8.5-10.1 [facility] ANION GAP 10.0 mmol/L 5-12 [facility] GLOMERULAR FILTRATION RATE 50 mL/min [facility] GFR IS CALCULATED IN mL/min/1.73m2 STEVENSON L FUNCTION: >90MILDLY DECREASED: 60-89MILDY TO MODERATELY DECREASED: 45-59 MODERATELY TO SEVERELY DECREASED: 30-44SEVERELY DECREASED: 15-29RENAL FAILURE: <15 AST 27 U/L 15-37 [facility] ALT 37 U/L 12-78 [facility] ALKALINE PHOSPHATASE 98 U/L 46-116 [facility] TOTAL BILIRUBIN 0.3 mg/dL 0.2-1.0 [facility] TOTAL PROTEIN 5.6 g/dl 6.4-8.2 L [facility] ALBUMIN 2.8 gm/dL 3.4-5.0 L [facility] ID Date Data Source [id number] 05/15/2020 07:06:00 AM EDT [facility] Name Value Range Interpretation Code Description Data Rosa rce(s) Supporting Document(s) WHITE BLOOD COUNT 13.5 K/mm3 4.0-10.0 H [facility] jer RED BLOOD COUNT 3.64 M/mm3 4.00-5.50 L [facility] HEMOGLOBIN 11.1 gm/dL 12.0-16.0 L [facility] HEMATOCRIT 32.7 % 36.0-48.8 L [facility] MEAN CELL VOLUME 89.8 fl 80-96 [facility] l MEAN CORPUSCULAR HEMOGLOBIN 30.5 pg 27.0-31.0 [facility] MEAN CORPUSCULAR HGB CONC 33.9 g/dl 32.0-36.0 [facility] RED CELL DISTRIBUTION WIDTH 14.8 % 10.0-14.5 H [facility] PLATELET COUNT 182 K/mm3 172-450 [facility] MEAN PLATELET VOLUME 10.0 fl 9.0-13.0 [facility] pital GRAN % 93.7 % 50-80.0 H [facility] IG% 1.2 % 0.0-0.2 H [facility] LYMPH % 2.0 % 25.0-50.0 *L [facility] MONO % 3.0 % 2.0-10.0 [facility] EOS % 0.0 % 0-5.0 [facility] BASO % 0.1 % 0.0-2.0 [facility] GRAN # 12.7 K/mm3 2.0-8.00 H [facility] IG# 0.2 K/mm3 0.0-0.2 [facility] LYMPH # 0.3 K/mm3 1.0-5.0 L [facility] MONO # 0.4 K/mm3 0.10-1.20 [facility] EOS # 0.0 K/mm3 0.0-0.5 [facility] BASO # 0.0 K/mm3 0.0-0.2 [facility] ID Date Data Source [id number] 05/14/2020 01:01:00 PM EDT [facility] DATE OF EXAMINATION: 05/14/2020 11:08 [...] rce(s) Supporting Document(s) ID Date Data Source [id number] 05/14/2020 06:18:00 AM EDT [facility] Name Value Range Interpretation Code Description Data Rosa rce(s) Supporting Document(s) GLUCOSE 229 mg/dL 74-106 H [facility] BLOOD UREA NITROGEN 30 mg/dL 7-18 H [facility] ital CREATININE 1.16 mg/dL 0.6-1.0 H [facility] SODIUM 137 mmol/L 136-145 [facility] POTASSIUM 5.5 mmol/L 3.5-5.1 H [facility] CHLORIDE 102 mmol/L 98-107 [facility] CO2 27 mmol/L 21-32 [facility] CALCIUM 8.7 mg/dL 8.5-10.1 [facility] ANION GAP 8.0 mmol/L 5-12 [facility] GLOMERULAR FILTRATION RATE 46 mL/min [facility] GFR IS CALCULATED IN mL/min/1.73m2 STEV[facility]SON L FUNCTION: >90MILDLY DECREASED: 60-89MILDY TO MODERATELY DECREASED: 45-59 MODERATELY TO SEVERELY DECREASED: 30-44SEVERELY DECREASED: 15-29RENAL FAILURE: <15 AST 26 U/L 15-37 [facility] ALT 35 U/L 12-78 [facility] ALKALINE PHOSPHATASE 100 U/L 46-116 [facility] pital TOTAL BILIRUBIN 0.3 mg/dL 0.2-1.0 [facility] TOTAL PROTEIN 5.8 g/dl 6.4-8.2 L [facility] ALBUMIN 2.9 gm/dL 3.4-5.0 L [facility] ID Date Data Source [id number] 05/14/2020 05:53:00 AM EDT [facility] Name Value Range Interpretation Code Description Data Rosa rce(s) Supporting Document(s) WHITE BLOOD COUNT 12.6 K/mm3 4.0-10.0 [facility] RED BLOOD COUNT 3.72 M/mm3 4.00-5.50 L [facility] HEMOGLOBIN 11.3 gm/dL 12.0-16.0 L [facility] HEMATOCRIT 33.2 % 36.0-48.8 L [facility] MEAN CELL VOLUME 89.2 fl 80-96 [facility] l MEAN CORPUSCULAR HEMOGLOBIN 30.4 pg 27.0-31.0 [facility] MEAN CORPUSCULAR HGB CONC 34.0 g/dl 32.0-36.0 [facility] RED CELL DISTRIBUTION WIDTH 14.7 % 10.0-14.5 H [facility] PLATELET COUNT 164 K/mm3 172-450 L [facility] [facility] MEAN PLATELET VOLUME 9.4 fl 9.0-13.0 [facility] pital GRAN % 94.0 % 50-80.0 H [facility] IG% 1.1 % 0.0-0.2 H [facility] LYMPH % 2.7 % 25.0-50.0 *L [facility] MONO % 2.1 % 2.0-10.0 [facility] EOS % 0.0 % 0-5.0 [facility] BASO % 0.1 % 0.0-2.0 [facility] GRAN # 11.8 K/mm3 2.0-8.00 H [facility] IG# 0.1 K/mm3 0.0-0.2 [facility] LYMPH # 0.3 K/mm3 1.0-5.0 L [facility] MONO # 0.3 K/mm3 0.10-1.20 [facility] EOS # 0.0 K/mm3 0.0-0.5 [facility] BASO # 0.0 K/mm3 0.0-0.2 [facility] ID Date Data Source [id number] 05/13/2020 04:51:00 PM EDT [facility] l Name Value Range Interpretation Code Description Data Rosa rce(s) Supporting Document(s) C REACTIVE PROTEIN 16.1 mg/L 0.0-3.0 [facility] ADD ON FROM AM LABS05/13/20 1651: CRP previously reported as: mg/L ADD ON FROM AM LABS ID Date Data Source [id number] 05/13/2020 06:23:00 AM EDT [facility] l Name Value Range Interpretation Code Description Data Rosa rce(s) Supporting Document(s) GLUCOSE 169 mg/dL 74-106 H [facility] BLOOD UREA NITROGEN 37 mg/dL 7-18 [facility] CREATININE 1.20 mg/dL 0.6-1.0 H [facility] SODIUM 141 mmol/L 136-145 [facility] POTASSIUM 5.7 mmol/L 3.5-5.1 H [facility] CHLORIDE 105 mmol/L 98-107 [facility] CO2 27 mmol/L 21-32 [facility] CALCIUM 8.8 mg/dL 8.5-10.1 [facility] ANION GAP 9.0 mmol/L 5-12 [facility] GLOMERULAR FILTRATION RATE 44 mL/min [facility] GFR IS CALCULATED IN mL/min/1.73m2 STEVENSON L FUNCTION: >90MILDLY DECREASED: 60-89MILDY TO MODERATELY DECREASED: 45-59 MODERATELY TO SEVERELY DECREASED: 30-44SEVERELY DECREASED: 15-29RENAL FAILURE: <15 AST 25 U/L 15-37 [facility] ALT 33 U/L 12-78 [facility] ALKALINE PHOSPHATASE 93 U/L 46-116 [facility] TOTAL BILIRUBIN 0.2 mg/dL 0.2-1.0 [facility] TOTAL PROTEIN 5.5 g/dl 6.4-8.2 L [facility] ALBUMIN 2.6 gm/dL 3.4-5.0 L [facility] ID Date Data Source [id number] 05/13/2020 05:51:00 AM EDT [facility] Name Value Range Interpretation Code Description Data Rosa rce(s) Supporting Document(s) WHITE BLOOD COUNT 11.6 K/mm3 4.0-10.0 H [facility] RED BLOOD COUNT 3.56 M/mm3 4.00-5.50 L [facility] HEMOGLOBIN 11.0 gm/dL 12.0-16.0 L [facility] HEMATOCRIT 32.4 % 36.0-48.8 L [facility] MEAN CELL VOLUME 91.0 fl 80-96 [facility] MEAN CORPUSCULAR HEMOGLOBIN 30.9 pg 27.0-31.0 [facility] MEAN CORPUSCULAR HGB CONC 34.0 g/dl 32.0-36.0 [facility] RED CELL DISTRIBUTION WIDTH 14.9 % 10.0-14.5 H [facility] PLATELET COUNT 159 K/mm3 172-450 L [facility] MEAN PLATELET VOLUME 9.8 fl 9.0-13.0 [facility] pital GRAN % 86.4 % 50-80.0 H [facility] IG% 0.8 % 0.0-0.2 H [facility] LYMPH % 6.4 % 25.0-50.0 L [facility] MONO % 6.1 % 2.0-10.0 [facility] EOS % 0.2 % 0-5.0 [facility] BASO % 0.1 % 0.0-2.0 [facility] GRAN # 10.0 K/mm3 2.0-8.00 H [facility] IG# 0.1 K/mm3 0.0-0.2 [facility] LYMPH # 0.7 K/mm3 1.0-5.0 L [facility] MONO # 0.7 K/mm3 0.10-1.20 [facility] EOS # 0.0 K/mm3 0.0-0.5 [facility] BASO # 0.0 K/mm3 0.0-0.2 [facility] ID Date Data Source [id number] 05/12/2020 11:39:00 AM EDT [facility] l Progress Note GeneralEncounter:The neida ent was seen and examined, chart reviewed, discussed with staff, all questions were answered. 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 She did frequently tell staff this yesterday as well. She believes that if she had help at home she can take care of herself. 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 Continue DuoNeb treatments bsyksd-zpw-qekop as well as albuterol nebulizer treatments as [...] Name Value Range Interpretation Code Description Data [facility](s) Supporting Document(s) ID Date Data Source [id number] 05/12/2020 11:07:00 AM EDT [facility] l Name Value Range Interpretation Code Description Data [facility](s) Supporting Document(s) GLUCOSE 154 mg/dL 74-106 H [facility] BLOOD UREA NITROGEN 33 mg/dL 7-18 H [facility] ital CREATININE 1.02 mg/dL 0.6-1.0 H [facility] SODIUM 141 mmol/L 136-145 [facility] POTASSIUM 4.7 mmol/L 3.5-5.1 [facility] CHLORIDE 106 mmol/L 98-107 [facility] CO2 26 mmol/L 21-32 [facility] CALCIUM 8.6 mg/dL 8.5-10.1 [facility] ANION GAP 9.0 mmol/L 5-12 [facility] GLOMERULAR FILTRATION RATE 53 mL/min [facility] GFR IS CALCULATED IN mL/min/1.73m2 STEVENSON L FUNCTION: >90MILDLY DECREASED: 60-89MILDY TO MODERATELY DECREASED: 45-59 MODERATELY TO SEVERELY DECREASED: 30-44SEVERELY DECREASED: 15-29RENAL FAILURE: <15 ID Date Data Source [id number] 05/12/2020 10:32:00 AM EDT [facility] Name Value Range Interpretation Code Description Data Rosa rce(s) Supporting Document(s) WHITE BLOOD COUNT 15.0 K/mm3 4.0-10.0 [facility] RED BLOOD COUNT 3.66 M/mm3 4.00-5.50 L [facility] HEMOGLOBIN 11.0 gm/dL 12.0-16.0 L [facility] HEMATOCRIT 33.1 % 36.0-48.8 L [facility] MEAN CELL VOLUME 90.4 fl 80-96 [facility] MEAN CORPUSCULAR HEMOGLOBIN 30.1 pg 27.0-31.0 [facility] MEAN CORPUSCULAR HGB CONC 33.2 g/dl 32.0-36.0 [facility] RED CELL DISTRIBUTION WIDTH 14.9 % 10.0-14.5 H [facility] PLATELET COUNT 166 K/mm3 172-450 L [facility] MEAN PLATELET VOLUME 9.7 fl 9.0-13.0 [facility] pital GRAN % 93.9 % 50-80.0 H [facility] IG% 0.3 % 0.0-0.2 H [facility] LYMPH % 2.3 % 25.0-50.0 *L [facility] MONO % 3.5 % 2.0-10.0 [facility] EOS % 0.0 % 0-5.0 [facility] BASO % 0.0 % 0.0-2.0 [facility] GRAN # 14.0 K/mm3 2.0-8.00 H [facility] IG# 0.1 K/mm3 0.0-0.2 [facility] LYMPH # 0.3 K/mm3 1.0-5.0 L [facility] MONO # 0.5 K/mm3 0.10-1.20 [facility] EOS # 0.0 K/mm3 0.0-0.5 [facility] BASO # 0.0 K/mm3 0.0-0.2 [facility] ID Date Data Source [id number] 05/11/2020 12:33:00 PM EDT [facility] Progress Note GeneralEncounter:Chart re viewed. [...] pedal edema, peripheral pulses are diminishedNeurologic/Psychiatric alert, patternator II-XII nml as tested, normal mood/affect, no [...] A&PContinue Rocephin and Zithromax. Continue nebulizer treatments oxbbqw-dvx-dqdgzrud when necessary. Continue O2 and closely monitor [...] rce(s) Supporting Document(s) ID Date Data Source [id number] 05/11/2020 07:07:00 AM EDT [facility] Name Value Range Interpretation Code Description Data Rosa rce(s) Supporting Document(s) TSH 0.951 uIU/mL 0.360-3.740 [facility] ID Date Data Source [id number] 05/11/2020 06:58:00 AM EDT [facility] Name Value Range Interpretation Code Description Data Rosa rce(s) Supporting Document(s) HGBA1C 11.4 % 3.8-5.6 H [facility] Diabetic > or = to 6.5%Prediabetes 5.7-6 .4%Normal <5.7 ESTIMATED AVERAGE GLUCOSE 280.5 mg/dL [facility] ID Date Data Source [id number] 05/11/2020 [facility] Range Interpretation Code Description Data Rosa rce(s) Supporting Document(s) GLUCOSE 113 mg/dL 74-106 H [facility] BLOOD UREA NITROGEN 39 mg/dL 7-18 H [facility] ital CREATININE 1.34 mg/dL 0.6-1.0 H [facility] SODIUM 140 mmol/L 136-145 [facility] POTASSIUM 4.9 mmol/L 3.5-5.1 [facility] CHLORIDE 103 mmol/L 98-107 [facility] CO2 27 mmol/L 21-32 [facility] CALCIUM 8.3 mg/dL 8.5-10.1 L [facility] ANION GAP 10.0 mmol/L 5-12 [facility] GLOMERULAR FILTRATION RATE 39 mL/min [facility] GFR IS CALCULATED IN mL/min/1.73m2 STEVENSON L FUNCTION: >90MILDLY DECREASED: 60-89MILDY TO MODERATELY DECREASED: 45-59 MODERATELY TO SEVERELY DECREASED: 30-44SEVERELY DECREASED: 15-29RENAL FAILURE: <15 ID Date Data Source [id number] 05/11/2020 06:44:00 AM [facility] Name Value Range Interpretation Code Description Data Rosa rce(s) Supporting Document(s) WHITE BLOOD COUNT 9.3 K/mm3 4.0-10.0 [facility] al RED BLOOD COUNT 3.47 M/mm3 4.00-5.50 L [facility] HEMOGLOBIN 10.6 gm/dL 12.0-16.0 L [facility] HEMATOCRIT 31.0 % 36.0-48.8 L [facility] MEAN CELL VOLUME 89.3 fl 80-96 [facility] MEAN CORPUSCULAR HEMOGLOBIN 30.5 pg 27.0-31.0 [facility] MEAN CORPUSCULAR HGB CONC 34.2 g/dl 32.0-36.0 [facility] RED CELL DISTRIBUTION WIDTH 14.5 % 10.0-14.5 [facility] PLATELET COUNT 162 K/mm3 172-450 L [facility] MEAN PLATELET VOLUME 9.8 fl 9.0-13.0 [facility] pital GRAN % 92.6 % 50-80.0 H [facility] IG% 0.4 % 0.0-0.2 H [facility] LYMPH % 3.1 % 25.0-50.0 *L [facility] MONO % 3.8 % 2.0-10.0 [facility] EOS % 0.0 % 0-5.0 [facility] BASO % 0.1 % 0.0-2.0 [facility] GRAN # 8.6 K/mm3 2.0-8.00 H [facility] IG# 0.0 K/mm3 0.0-0.2 [facility] LYMPH # 0.3 K/mm3 1.0-5.0 L [facility] MONO # 0.4 K/mm3 0.10-1.20 [facility] EOS # 0.0 K/mm3 0.0-0.5 [facility] BASO # 0.0 K/mm3 0.0-0.2 [facility] ID Date Data Source [id number] 05/14/2020 04:09:00 PM EDT [facility]spital Name Value Range Interpretation Code Description Data Rosa rce(s) Supporting Document(s) SPECIMEN SOURCE Urine . [facility] STREPTOCOCCUS PEUMONIAE AG Negative Negative [facility] BODY FLUID CULTURE STERILE Not indicated. . [facility] ORGANISM ID Not indicated. . [facility] PLEASE NOTE: Comment . [facility] [employer] standar ds require aculture to be performed on CSF specimens submitted forbacterial antigen testing. (CAP [id number]) Urine specimenswill not be cultured.Performed at: [address], [place] [id number] Director: Ramu Cota MD, Phone: [phone] ID Date Data Source [id number] 05/14/2020 04:05:00 PM EDT [facility] Name Value Range Interpretation Code Description Data Rosa rce(s) Supporting Document(s) Specimen Source Urine [facility] Streptococcus pneumoniae Ag Negative Negative [facility] Body Fluid Culture, Sterile Not indicated. [facility] Organism ID Not indicated. [facility] Please Note: [facility] [employer] standar ds require a culture to beperformed on CSF specimens submitted for bacterial antigen testing.(CAP [id number]) Urine specimens will not be cultured. ID Date Data Source [id number] 05/10/2020 10:19:00 PM EDT [facility] l Name Value Range Interpretation Code Description Data Rosa rce(s) Supporting Document(s) LEGIONELLA AG URINE-ANGELES SENT TO [facility] ID Date Data Source [id number] 05/10/2020 10:09:00 PM EDT [facility] l Name Value Range Interpretation Code Description Data Rosa rce(s) Supporting Document(s) GLUCOSE 522 mg/dL 74-106 *H [facility] ID Date Data Source [id number] 05/11/2020 04:14:00 PM EDT [facility] jer Is the patient hospitalized ([facility] or [facility])? Y Name Value Range Interpretation Code Description Data Rosa rce(s) Supporting Document(s) L PNEUMO SERO 1 NEGATIVE NEGATIVE N [facility] MANUAL ENTRY RECHECKED Screen for [...] (REFERENCE RANGE= NEGATIVE) ID Date Data Source [id number] 05/10/2020 05:30:00 PM EDT [facility] Name Value Range Interpretation Code Description Data Rosa rce(s) Supporting Document(s) COVID-19 NEGATIVE [facility] This lab was ordered by [facility] and reported by [facility] Laboratory. ID Date Data Source [id number] 05/10/2020 05:56:00 PM EDT [facility] TSYSORDER [id number] Name Value Range Interpretation Code Description Data Rosa rce(s) Supporting Document(s) COVID-19 NEGATIVE NEGATIVE [facility] Negative results should be treated as pr [...] are for the indentification of SARS-CoV-2 RNA. QunLMFO-TtV-0 RNA is generally detectable in respiratorysamples during the actue phase of infection. ID Date Data Source [id number] 05/10/2020 04:22:00 PM EDT [facility] l TSYSORDER [id number] Name Value Range Interpretation Code Description Data Rosa rce(s) Supporting Document(s) TROPONIN I 0.031 ng/mL 0.000-0.056 [facility] ID Date Data Source [id number] 05/10/2020 02:11:00 PM EDT [facility] DATE OF EXAMINATION: 05/10/2020 13:07 EDT [...] rce(s) Supporting Document(s) ID Date Data Source [id number] 05/10/2020 01:40:00 PM EDT [facility]SYS[facility] [id number] Name Value Range Interpretation Code Description Data Rosa rce(s) Supporting Document(s) URINE RBC 0-2 /hpf 0-3 [facility] URINE WBC 0-2 /hpf 0-5 H [facility] URINE EPITHELIAL CELLS 1+ /hpf [facility] URINE HYALINE CAST 0-2 /LPF 0 [facility] ID Date Data Source [id number] 05/10/2020 01:32:00 PM EDT [facility] ital TSYSORDER [id number] Name Value Range Interpretation Code Description Data Rosa rce(s) Supporting Document(s) URINE COLOR. [facility] URINE APPEARANCE CLEAR [facility] URINE GLUCOSE (UA) >=1000 mg/dL NEGATIVE H [facility] spital URINE BILIRUBIN NEGATIVE NEGATIVE [facility] URINE KETONE NEGATIVE mg/dL NEGATIVE [facility] SPECIFIC GRAVITY,URINE 1.025 1.005-1.030 [facility] URINE BLOOD NEGATIVE NEGATIVE [facility] PH,URINE 5.5 5.0-9.0 [facility] URINE PROTEIN 4+(>=300) mg/dL NEGATIVE [facility] URINE UROBILINOGEN NORMAL(0.2-1) mg/dL 0-1 [facility] URINE NITRATE NEGATIVE NEGATIVE [facility] URINE LEUKOCYTE ESTERASE NEGATIVE NEGATIVE [facility] ID Date Data Source [id number] 05/16/2020 07:10:00 AM EDT [facility] Name Value Range Interpretation Code Description Data Rosa rce(s) Supporting Document(s) [facility] ID Date Data Source [id number] 05/10/2020 01:21:00 PM EDT [facility] [id number] Name Value Range Interpretation Code Description Data Rosa rce(s) Supporting Document(s) LACTIC ACID 0.9 mmol/L 0.4-2.0 [facility] ID Date Data Source [id number] 05/10/2020 12:51:00 PM EDT [facility] l TSYSORDER [id number] Name Value Range Interpretation Code Description Data Rosa rce(s) Supporting Document(s) PH 7.35 7.31-7.41 [facility] VENOUS PCO2 53.1 mmHg 41-51 H [facility] VENOUS PO2 33 mmHg 35-42 L [facility] VENOUS BLODD O2 SATURATION 55.4 % 68-77 L [facility] VENOUS BLOOD HCO3 28.2 meq/L 24.0-25.0 H [facility] VENOUS BASE EXCESS 1.9 -3.0-3.0 [facility] VENOUS BLOOD CO2 29.9 mmol/L 23.0-32.0 [facility] ID Date Data Source [id number] 05/16/2020 07:10:00 AM EDT [facility] Name Value Range Interpretation Code Description Data Rosa rce(s) Supporting Document(s) [facility] ID Date Data Source [id number] 05/10/2020 12:59:00 PM EDT [facility] l TSYSORDER [id number] Name Value Range Interpretation Code Description Data Rosa rce(s) Supporting Document(s) PARTIAL THROMBOPLASTIN TIME 23.6 SECONDS 21.2-27.3 [facility] ID Date Data Source [id number] 05/10/2020 12:54:00 PM EDT [facility] l TSYSORDER [id number] Name Value Range Interpretation Code Description Data Rosa rce(s) Supporting Document(s) PROTHROMBIN TIME (PATIENT) 9.8 SECONDS 9.1-11.6 [facility] INR 0.94 0.87-1.06 [facility] ID Date Data Source [id number] 05/10/2020 12:50:00 PM EDT [facility] l TSYSORDER [id number] Name Value Range Interpretation Code Description Data Rosa rce(s) Supporting Document(s) TROPONIN I 0.031 ng/mL 0.000-0.056 [facility] ID Date Data Source [id number] 05/10/2020 12:50:00 PM EDT [facility] [id number] Name Value Range Interpretation Code Description Data Rosa rce(s) Supporting Document(s) MAGNESIUM 2.2 mg/dL 1.8-2.4 [facility] ID Date Data Source [id number] 05/10/2020 12:31:00 PM EDT [facility] l TSYSORDER [id number] Name Value Range Interpretation Code Description Data Rosa rce(s) Supporting Document(s) GLUCOSE 313 mg/dL 74-106 H [facility] BLOOD UREA NITROGEN 33 mg/dL 7-18 H [facility] CREATININE 1.31 mg/dL 0.6-1.0 H [facility] SODIUM 131 mmol/L 136-145 L [facility] POTASSIUM 4.6 mmol/L 3.5-5.1 [facility] CHLORIDE 96 mmol/L 98-107 L [facility] CO2 26 mmol/L 21-32 [facility] CALCIUM 9.6 mg/dL 8.5-10.1 [facility] ANION GAP 9.0 mmol/L 5-12 [facility] GLOMERULAR FILTRATION RATE 40 mL/min [facility] GFR IS CALCULATED IN mL/min/1.73m2 STEVENSON L FUNCTION: >90MILDLY DECREASED: 60-89MILDY TO MODERATELY DECREASED: 45-59 MODERATELY TO SEVERELY DECREASED: 30-44SEVERELY DECREASED: 15-29RENAL FAILURE: <15 AST 19 U/L 15-37 [facility] ALT 32 U/L 12-78 [facility] ALKALINE PHOSPHATASE 97 U/L 46-116 [facility] pital TOTAL BILIRUBIN 0.6 mg/dL 0.2-1.0 [facility] TOTAL PROTEIN 7.2 g/dl 6.4-8.2 [facility] ALBUMIN 3.0 gm/dL 3.4-5.0 L [facility] ID Date Data Source [id number] 05/10/2020 11:59:00 AM EDT [facility] l TSYSORDER [id number] Name Value Range Interpretation Code Description Data Rosa rce(s) Supporting Document(s) WHITE BLOOD COUNT 18.2 K/mm3 4.0-10.0 H [facility] RED BLOOD COUNT 4.32 M/mm3 4.00-5.50 [facility] l HEMOGLOBIN 13.0 gm/dL 12.0-16.0 [facility] HEMATOCRIT 38.4 % 36.0-48.8 [facility] MEAN CELL VOLUME 88.9 fl 80-96 [facility] MEAN CORPUSCULAR HEMOGLOBIN 30.1 pg 27.0-31.0 [facility] MEAN CORPUSCULAR HGB CONC 33.9 g/dl 32.0-36.0 [facility] RED CELL DISTRIBUTION WIDTH 14.8 % 10.0-14.5 H [facility] PLATELET COUNT 182 K/mm3 172-450 [facility] MEAN PLATELET VOLUME 9.6 fl 9.0-13.0 [facility] pital GRAN % 91.7 % 50-80.0 H [facility] IG% 0.3 % 0.0-0.2 H [facility] LYMPH % 2.5 % 25.0-50.0 *L [facility] MONO % 4.3 % 2.0-10.0 [facility] EOS % 1.0 % 0-5.0 [facility] BASO % 0.2 % 0.0-2.0 [facility] GRAN # 16.7 K/mm3 2.0-8.00 *H [facility] IG# 0.1 K/mm3 0.0-0.2 [facility] LYMPH # 0.5 K/mm3 1.0-5.0 L [facility] MONO # 0.8 K/mm3 0.10-1.20 [facility] EOS # 0.2 K/mm3 0.0-0.5 [facility] BASO # 0.0 K/mm3 0.0-0.2 [facility] ID Date Data Source [id number] 02/19/2020 09:38:00 PM [facility] Name Value Range Interpretation Code Description Data Rosa rce(s) Supporting Document(s) SARS-CoV-2 (COVID 19) NEGATIVE - SARS-CoV-2 (COVID19) [facility] This lab was ordered by [facility] a nd reported by [facility]. ID Date Data Source [id number] 01/04/2020 02:54:00 PM EST [facility] ([facility], ) Name Value Range Interpretation Code Description Data Rosa rce(s) Supporting Document(s) Gram Stain Laboratory test result Normal (applies to non-n umeric results) [facility] ([facility]) QUALITY: GOOD MODERATE EPITHELIAL CELLS MODERATE WBCS MANY GRAM POSITIVE COCCI IN PAIRS, CHAINS AND CLUSTERS MODERATE GRAM POSITIVE RODS MODERATE GRAM NEGATIVE RODS Sputum Culture Laboratory test result Normal (applies to non-numeric results) [facility] ([facility]) FULL REPORT IN LAB NOTES ([facility] NORMAL KELLI PRESENT ORGANISM 1: YEAST LIKE ORGANISM QUANTITY OF GROWTH FEW ORGANISM 1: YEAST LIKE ORGANISM ID Date Data Source [id number] 01/03/2020 03:12:00 PM EST [facility] ([facility] Name Value Range Interpretation Code Description Data [facility] Supporting Document(s) White Blood Count [...] % 0.0-3.0 [facility] ([facility] Mobile % 3.0 % 0.0-5.0 [facility] ([facility] Baso % 0.6 % 0.0-1.0 [facility] ([facility] Immature Granulocyte % 0.5 % 0-3.0 [facility] ([facility] Neutrophils # 14.6 10 1.5-8.5 [facility] ([facility] Nucleated Red Blood Cell % 0.0 % 0-0 [facility] ([facility] Mobile # 0.5 10 0.0-0.8 [facility] ([facility] Lymph # 0.9 10 1.5-5.0 [facility] ([facility] Eos # 0.1 10 0.0-0.5 [facility] ([facility] Baso # 0.1 10 0.0-0.2 [facility] ([facility] ID Date Data Source [id number] 01/03/2020 03:12:00 PM EST [facility] ([facility] [...] Little GFR Left</content>
<content>ESRD GFR <15 on MANAGER TRANSFUSION</content>
<content></content> Carbon Dioxide Level 25 meq/L 21-32 [...] [facility] ID Date Data Source [id number] 01/03/2020 03:12:00 PM EST MED[facility] ([facility] Name Value Range Interpretation Code Description Data Rosa rce(s) Supporting Document(s) Thyrotropin [Units/volume] in Serum or Plasma 1.340 uIU/ML 0.358-3.74 0 [facility] ([facility] Thyroxine (T4) free [Mass/volume] in Serum or Plasma 1.58 ng/dL 0.76- 1.46 [facility] ([facility] ID Date Data Source [id number] 01/03/2020 03:12:00 PM EST [facility] ([facility] Name Value Range Interpretation Code Description Data Rosa rce(s) Supporting Document(s) Hemoglobin A1c 8.7 % [facility] ([facility] <content>REFERENCE RANGES:</content><br/ ><content></content>
<content><=5.6% NORMAL</content>
<content>5.7-6.4% SUGGESTS IMPAIRED GLUCOSE METABOLISM/PREDIABETIC</content>
<content>>= 6.5% ABNORMAL</content>
<content></content> Estimated Average Glucose 203 mg/dL 60-110 [facility] ([facility] ID Date Data Source [id number] 11/09/2019 03:24:00 PM EDT [facility] ([facility]) Name Value Range Interpretation Code Description Data Rosa rce(s) Supporting Document(s) Glucose, Fasting 124 mg/dL 70-100 Above high normal M EDENT ([facility]) Creatinine For GFR 1.04 mg/dL 0.55-1.30 Normal (applies to non -numeric results) [facility] ([facility]) Blood Urea Nitrogen 19 mg/dL 7-18 Above high normal [facility] ([facility]) Potassium Serum 5.4 meq/L 3.5-5.1 Above high normal ME DENT ([facility]) Sodium Level 138 meq/L 136-145 Normal (applies to non-numeric res ults) [facility] ([facility]) Glomerular Filtration Rate 55.1 Normal (applies to n on-numeric results) [facility] ([facility]) <content>Units are mL/min/1.73 m2</content>
<content></content>
<content>Chronic Kidney Disease Staging per NKF:</content>
<content></content>
<content>Stage I & II GFR >=60 Normal to Mildly Decreased</content>
<content>Stage III GFR 30- 59 Moderately Decreased</content>
<content>Stage IV GFR 15-29 Severely Decreased</content>
<content>Stage V GFR <15 Very Little GFR Left</content>
<content>ESRD GFR <15 on MANAGER TRANSFUSION</content>
<content></content> Chloride Level 107 meq/L 98-107 Normal (applies to non-numeric r esults) [facility] ([facility]) Anion Gap 7 meq/L 8-16 Below low normal [facility] Carbon Dioxide Level 24 meq/L 21-32 Normal (applies to non-num jd results) [facility] ([facility]) Calcium Level 9.8 mg/dL 8.8-10.2 Normal (applies to non-numeric re sults) [facility] ([facility]) ID Date Data Source [id number] 11/09/2019 03:24:00 PM EDT [facility] Name Value Range Interpretation Code Description Data Rosa rce(s) Supporting Document(s) White Blood Count 13.6 10 4.0-10.0 Above high normal [facility] ([facility]) Hematocrit 44.8 % 36.0-47.0 Normal (applies to non-numeric resul ts) [facility]) Red Blood Count 4.83 10 4.00-5.40 Normal (applies to non-numeric results) [facility] ([facility]) Hemoglobin 14.4 g/dL 12.0-15.5 Normal (applies to non-numeric resul ts) [facility]) Mean Corpuscular Hemoglobin 29.8 pg 27.0-33.0 Norm al (applies to non-numeric results) [facility] ([facility]) Mean Corpuscular HGB Conc 32.1 g/dL 32.0-36.5 Normal (applies to non-numeric results) [facility] ([facility]) Mean Corpuscular Volume 92.8 fl 80.0-96.0 Normal ( applies to non-numeric results) [facility] ([facility]) Red Cell Distribution Width 15.0 % 11.5-14.5 Above high normal [facility] ([facility]) Nucleated Red Blood Cell % 0.0 % 0-0 Normal (applies to n on-numeric results) [facility] ([facility]) Platelet Count, Automated 214 10 150-450 Normal (applies to non-numeric results) [facility]) Procedure Social History Code Duration Value Status Description Data Source(s ) Smoking 11/24/2020 12:00:00 AM EDT Current Smoker completed Curre nt Smoker eCW1 ([facility]) Smoking 11/24/2020 12:00:00 AM EDT Current Smoker completed Curre nt Smoker eCW1 ([facility]) Smoking 08/18/2020 12:00:00 AM EDT Current Smoker completed Curre nt Smoker eCW1 ([facility]) Smoking 08/18/2020 12:00:00 AM EDT Current Smoker completed Curre nt Smoker eCW1 ([facility]) Smoking 08/18/2020 12:00:00 AM EDT Current Smoker completed Curre nt Smoker eCW1 ([facility]) Smoking 06/30/2020 12:00:00 AM EDT Current Smoker completed Curre nt Smoker eCW1 ([facility]) Smoking 06/30/2020 12:00:00 AM EDT Current Smoker completed Curre nt Smoker eCW1 ([facility]) Smoking 06/30/2020 12:00:00 AM EDT Current Smoker completed Curre nt Smoker eCW1 ([facility]) Smoking 06/30/2020 12:00:00 AM EDT Current Smoker completed Curre nt Smoker eCW1 ([facility]) Smoking 06/30/2020 12:00:00 AM EDT Current Smoker completed Curre nt Smoker eCW1 ([facility]) Smoking 06/30/2020 12:00:00 AM EDT Current Smoker completed Curre nt Smoker eCW1 ([facility]) Smoking 06/30/2020 12:00:00 AM EDT Current Smoker completed Curre nt Smoker eCW1 ([facility]) Smoking 06/30/2020 12:00:00 AM EDT Current Smoker completed Curre nt Smoker eCW1 ([facility]) Smoking 06/30/2020 12:00:00 AM EDT Current Smoker completed Curre nt Smoker eCW1 ([facility]) Smoking 06/30/2020 12:00:00 AM EDT Current Smoker completed Curre nt Smoker eCW1 ([facility]) Smoking 06/30/2020 12:00:00 AM EDT Current Smoker completed Curre nt Smoker eCW1 ([facility]) Smoking 06/30/2020 12:00:00 AM EDT Current Smoker completed Curre nt Smoker eCW1 ([facility]) Smoking 06/30/2020 12:00:00 AM EDT Current Smoker completed Curre nt Smoker eCW1 ([facility]) Smoking 06/30/2020 12:00:00 AM EDT Current Smoker completed Curre nt Smoker eCW1 ([facility]) Smoking 06/30/2020 12:00:00 AM EDT Current Smoker completed Curre nt Smoker eCW1 ([facility]) Smoking 06/25/2020 12:00:00 AM EDT Current Smoker completed Curre nt Smoker eCW1 ([facility]) Vital Signs ID Date Data Source [id number] Name Value Range Interpretation Code Description Data Source(s) Body weight 113 [lb_av] 113 [lb_av] eCW1 ([facility]) Diastolic blood pressure 60 mm[Hg] 60 mm[Hg] eCW1 ([facility]) Body height [in_i] eCW1 ([facility]) Body mass index (BMI) [Ratio] 20.01 kg/m2 20.01 kg/m2 eCW1 ([facility]) Heart rate 96 /min 96 /min eCW1 [facility] Respiratory rate 18 /min 18 /min eCW1 ([facility]) Body temperature 97.2 [degF] 97.2 [degF] eCW1 ( [facility]) Systolic blood pressure 128 mm[Hg] 128 mm[Hg] e CW1 ([facility]) Systolic blood pressure 130 mm[Hg] 130 mm[Hg] M EDENT ([facility], ) Diastolic blood pressure 80 mm[Hg] 80 mm[Hg] MED[facility] ([facility], ) Heart rate 102 /min 102 /min [facility] ([facility], ) Oxygen saturation in Arterial blood by Pulse oximetry 94 % 94 % [facility] ([facility], ) Body height 61.75 [in_i] 61.75 [in_i] [facility] ([facility], ) 5'1.75" Body weight 116.00 [lb_av] 116.00 [lb_av] MEDEN T ([facility], ) Body mass index (BMI) [Ratio] 21.4 kg/m2 21.4 k g/m2 [facility] ([facility]) [place] body weight 105 [lb_av] 105 [lb_av] MEDEN T ([facility]) Body weight 52.618 kg 52.618 kg [facility] ([facility]) Body surface area Derived from formula 1.51 m2 1.51 m2 [facility] ([facility]) Body mass index (BMI) [Ratio] 20.7 kg/m2 [...] [in_i] [facility] ([facility] 5'3" Systolic blood pressure 157 mm[Hg] 157 mm[Hg] M EDENT ([facility] Diastolic blood pressure 69 mm[Hg] 69 mm[Hg] [facility] ([facility] Body weight 117.00 [lb_av] 117.00 [lb_av] MEDEN T ([facility] Oxygen saturation in Arterial blood by Pulse oximetry 98 % 98 % [facility] ([facility] [place] body weight 115 [lb_av] 115 [lb_av] MEDEN [...] [lb_av] MEDEN T ([facility] [place] body weight 115 [lb_av] 115 [lb_av] MEDEN T ([facility] Oxygen saturation in Arterial blood by Pulse oximetry 95 % 95 % [facility] ([facility] Body mass index (BMI) [Ratio] 21.3 kg/m2 21.3 k g/m2 [facility] ([facility] Systolic blood pressure 110 mm[Hg] 110 mm[Hg] [facility] Diastolic blood pressure 58 mm[Hg] 58 mm[Hg] [facility] ([facility], ) Heart rate 90 /min 90 /min [facility] ([facility], ) Oxygen saturation in Arterial blood by Pulse oximetry 91 % 91 % [facility] ([facility], ) Body temperature 97.5 [degF] 97.5 [degF] [facility] ([facility]) Body height 61.75 [in_i] 61.75 [in_i] [facility] ([facility]) 5'1.75" Body weight 122.00 [lb_av] 122.00 [lb_av] MEDEN T ([facility]) Body mass index (BMI) [Ratio] 22.5 kg/m2 22.5 k g/m2 [facility] ([facility]) [place] body weight 105 [lb_av] 105 [lb_av] MEDEN T ([facility]) Body weight 55.339 kg 55.339 kg [facility] ([facility]) Body surface area Derived from formula 1.54 m2 1.54 m2 [facility] ([facility]) Systolic blood pressure 120 mm[Hg] 120 mm[Hg] [facility] Diastolic blood pressure 60 mm[Hg] 60 mm[Hg] [facility] ([facility]) Body height 61.75 [in_i] 61.75 [in_i] [facility] ([facility]) 5'1.75" Body weight 121.38 [lb_av] 121.38 [lb_av] MEDEN T ([facility]) Body mass index (BMI) [Ratio] 22.4 kg/m2 22.4 k g/m2 [facility] ([facility]) [place] body weight 105 [lb_av] 105 [lb_av] MEDEN T ([facility]) Body weight 55.056 kg 55.056 kg [facility] ([facility]) Systolic blood pressure 160 mm[Hg] 160 mm[Hg] M EDENT ([facility]) Diastolic blood pressure 70 mm[Hg] 70 mm[Hg] [facility] ([facility]) Body height 61.75 [in_i] 61.75 [in_i] [facility] ([facility]) 5'1.75" Body weight 118.12 [lb_av] 118.12 [lb_av] MEDEN T ([facility]) Body mass index (BMI) [Ratio] 21.8 kg/m2 21.8 k g/m2 [facility] ([facility]) [place] body weight 105 [lb_av] 105 [lb_av] MEDEN T ([facility]) Body weight 53.581 kg 53.581 kg [facility] ([facility]) Systolic blood pressure 140 mm[Hg] 140 mm[Hg] [...] 98 % [facility] ([facility] [place] body weight 115 [lb_av] 115 [lb_av] MEDEN T ([facility] Body mass index (BMI) [Ratio] 20.3 kg/m2 20.3 k g/m2 [facility] ([facility] ID Date Data Source [id number] 06/15/2020 02:16:00 PM EDT [facility] Name Value Range Interpretation Code Description Data Source(s) WEIGHT 54 kilos 54 [facility] HEIGHT 170.18 centimeters 170.18 centimeter s [facility] WEIGHT 54.1 kilos 54.1 [facility]ilos [facility] HEIGHT 170.18 centimeters 170.18 centimeter [facility] WEIGHT 54.09 kilos 54.09 kilos [facility] HEIGHT 170.18 centimeters 170.18 centimeter [facility] ID Date Data Source [id number] 05/18/2020 04:36:50 PM [facility] Name Value Range Interpretation Code Description Data Source(s) TRANSFER FROM [facility] ID Date Data Source [id number] 05/24/2020 12:50:00 PM EDT [facility] Name Value Range Interpretation Code Description Data Source(s) WEIGHT 55.9 kilos 55.9 [facility] HEIGHT 160.02 centimeters 160.02 centimeter [facility] WEIGHT 55.8 kilos 55.8 [facility] HEIGHT 160.02 centimeters 160.02 centimeter [facility] ID Date Data Source [id number] 09/21/2020 07:47:00 AM EDT [facility] Name Value Range Interpretation Code Description Data Source(s) WEIGHT 56 kilos 56 [facility] HEIGHT 160.02 centimeters 160.02 centimeter [facility] WEIGHT 55.8 kilos 55.8 [facility] HEIGHT 160.02 centimeters 160.02 centimeter [facility] WEIGHT 51 kilos 51 [facility] HEIGHT 160.02 centimeters 160.02 centimeter [facility] WEIGHT 51.3 kilos 51.3 [facility] HEIGHT 152.4 centimeters 152.4 centimeters [facility] ID Date Data Source [id number] 05/16/2020 08:13:00 PM EDT [facility] Name Value Range Interpretation Code Description Data Source(s) WEIGHT 52 kilos 52 [facility] ID Date Data Source [id number] 05/16/2020 08:13:00 PM EDT [facility] Name Value Range Interpretation Code Description Data Source(s) WEIGHT [facility].892073 [facility]461059 [facility] HEIGHT 160.02 centimeters 160.02 centimeter [facility] ID Date Data Source [id number] 05/16/2020 08:13:00 PM EDT [facility] Name Value Range Interpretation Code Description Data Source(s) WEIGHT 54 kilos 54 [facility] HEIGHT 160.02 centimeters 160.02 centimeter [facility] Patient Treatment Plan of Care Planned Activity Planned Date Details Description Data Source (s) Nicotine 7 MG/24HR 07/28/2020 12:00:00 AM EDT eCW1 ([facility]) Nicotine 7 MG/24HR 07/28/2020 12:00:00 AM EDT eCW1 ([facility]) Nicotine 7 MG/24HR 07/28/2020 12:00:00 AM EDT eCW1 ([facility]) Nicotine 7 MG/24HR 07/28/2020 12:00:00 AM EDT eCW1 ([facility]) Nicotine 7 MG/24HR 07/28/2020 12:00:00 AM EDT eCW1 ([facility]) Optifoam 4"X4" 07/18/2020 12:00:00 AM EDT eCW1 ([facility]) Optifoam 4"X4" 07/18/2020 12:00:00 AM EDT eCW1 ([facility]) Optifoam 4"X4" 07/18/2020 12:00:00 AM EDT eCW1 ([facility]) Optifoam 4"X4" 07/18/2020 12:00:00 AM EDT eCW1 ([facility]) Optifoam 4"X4" 07/18/2020 12:00:00 AM EDT eCW1 ([facility]) Optifoam 4"X4" 07/18/2020 12:00:00 AM EDT eCW1 ([facility]) Optifoam 4"X4" 07/18/2020 12:00:00 AM EDT eCW1 ([facility]) Acetaminophen 325 MG / Hydrocodone Bitartrate 5 MG Ora l Tablet 06/23/2020 12:00:00 AM EDT eCW1 ([facility]) gabapentin 100 MG Oral Capsule 06/23/2020 12:00:00 AM EDT eCW1 ([facility]) Metformin hydrochloride 500 MG Oral Tablet 06/23/2020 12:00:00 AM E DT eCW1 ([facility]) HM Lidocaine Patch 4 % 06/23/2020 12:00:00 AM EDT eCW1 ([facility]) Alendronic acid 70 MG Oral Tablet 06/23/2020 12:00:00 AM EDT eCW1 ([facility]) Acetaminophen 325 MG / Hydrocodone Bitartrate 5 MG Ora l Tablet 06/23/2020 12:00:00 AM EDT eCW1 ([facility]) gabapentin 100 MG Oral Capsule 06/23/2020 12:00:00 AM EDT eCW1 ([facility]) Metformin hydrochloride 500 MG Oral Tablet 06/23/2020 12:00:00 AM E DT eCW1 ([facility]) HM Lidocaine Patch 4 % 06/23/2020 12:00:00 AM EDT eCW1 ([facility]) Alendronic acid 70 MG Oral Tablet 06/23/2020 12:00:00 AM EDT eCW1 ([facility]) Acetaminophen 325 MG / Hydrocodone Bitartrate 5 MG Ora l Tablet 06/23/2020 12:00:00 AM EDT eCW1 ([facility]) gabapentin 100 MG Oral Capsule 06/23/2020 12:00:00 AM EDT eCW1 ([facility]) Metformin hydrochloride 500 MG Oral Tablet 06/23/2020 12:00:00 AM E DT eCW1 ([facility]) HM Lidocaine Patch 4 % 06/23/2020 12:00:00 AM EDT eCW1 ([facility]) Alendronic acid 70 MG Oral Tablet 06/23/2020 12:00:00 AM EDT eCW1 ([facility]) Acetaminophen 325 MG / Hydrocodone Bitartrate 5 MG Ora l Tablet 06/23/2020 12:00:00 AM EDT eCW1 ([facility]) gabapentin 100 MG Oral Capsule 06/23/2020 12:00:00 AM EDT eCW1 ([facility]) Metformin hydrochloride 500 MG Oral Tablet 06/23/2020 12:00:00 AM E DT eCW1 ([facility]) HM Lidocaine Patch 4 % 06/23/2020 12:00:00 AM EDT eCW1 ([facility]) Alendronic acid 70 MG Oral Tablet 06/23/2020 12:00:00 AM EDT eCW1 ([facility]) Metformin hydrochloride 500 MG Oral Tablet 06/23/2020 12:00:00 AM E DT eCW1 ([facility]) Acetaminophen 325 MG / Hydrocodone Bitartrate 5 MG Ora l Tablet 06/23/2020 12:00:00 AM EDT eCW1 ([facility]) gabapentin 100 MG Oral Capsule 06/23/2020 12:00:00 AM EDT eCW1 ([facility]) HM Lidocaine Patch 4 % 06/23/2020 12:00:00 AM EDT eCW1 ([facility]) Alendronic acid 70 MG Oral Tablet 06/23/2020 12:00:00 AM EDT eCW1 ([facility]) Metformin hydrochloride 500 MG Oral Tablet 06/23/2020 12:00:00 AM E DT eCW1 ([facility]) Acetaminophen 325 MG / Hydrocodone Bitartrate 5 MG Ora l Tablet 06/23/2020 12:00:00 AM EDT eCW1 ([facility]) gabapentin 100 MG Oral Capsule 06/23/2020 12:00:00 AM EDT eCW1 ([facility]) HM Lidocaine Patch 4 % 06/23/2020 12:00:00 AM EDT eCW1 ([facility]) Alendronic acid 70 MG Oral Tablet 06/23/2020 12:00:00 AM EDT eCW1 ([facility]) Metformin hydrochloride 500 MG Oral Tablet 06/23/2020 12:00:00 AM E DT eCW1 ([facility]) Acetaminophen 325 MG / Hydrocodone Bitartrate 5 MG Ora l Tablet 06/23/2020 12:00:00 AM EDT eCW1 ([facility]) gabapentin 100 MG Oral Capsule 06/23/2020 12:00:00 AM EDT eCW1 ([facility]) HM Lidocaine Patch 4 % 06/23/2020 12:00:00 AM EDT eCW1 ([facility]) Acetaminophen 325 MG / Hydrocodone Bitartrate 5 MG Ora l Tablet 06/23/2020 12:00:00 AM EDT eCW1 ([facility]) gabapentin 100 MG Oral Capsule 06/23/2020 12:00:00 AM EDT eCW1 ([facility]) Metformin hydrochloride 500 MG Oral Tablet 06/23/2020 12:00:00 AM E DT eCW1 ([facility]) HM Lidocaine Patch 4 % 06/23/2020 12:00:00 AM EDT eCW1 ([facility]) Alendronic acid 70 MG Oral Tablet 06/23/2020 12:00:00 AM EDT eCW1 ([facility]) Alendronic acid 70 MG Oral Tablet 06/23/2020 12:00:00 AM EDT eCW1 ([facility]) Metformin hydrochloride 500 MG Oral Tablet 06/23/2020 12:00:00 AM E DT eCW1 ([facility]) Acetaminophen 325 MG / Hydrocodone Bitartrate 5 MG Ora l Tablet 06/23/2020 12:00:00 AM EDT eCW1 ([facility]) gabapentin 100 MG Oral Capsule 06/23/2020 12:00:00 AM EDT eCW1 ([facility]) HM Lidocaine Patch 4 % 06/23/2020 12:00:00 AM EDT eCW1 ([facility]) Alendronic acid 70 MG Oral Tablet 06/23/2020 12:00:00 AM EDT eCW1 ([facility]) Alendronic acid 70 MG Oral Tablet 06/23/2020 12:00:00 AM EDT eCW1 ([facility]) Metformin hydrochloride 500 MG Oral Tablet 06/23/2020 12:00:00 AM E DT eCW1 ([facility]) Acetaminophen 325 MG / Hydrocodone Bitartrate 5 MG Ora l Tablet 06/23/2020 12:00:00 AM EDT eCW1 ([facility]) gabapentin 100 MG Oral Capsule 06/23/2020 12:00:00 AM EDT eCW1 ([facility]) HM Lidocaine Patch 4 % 06/23/2020 12:00:00 AM EDT eCW1 ([facility]) Alendronic acid 70 MG Oral Tablet 06/23/2020 12:00:00 AM EDT eCW1 ([facility]) Metformin hydrochloride 500 MG Oral Tablet 06/23/2020 12:00:00 AM E DT eCW1 ([facility]) Acetaminophen 325 MG / Hydrocodone Bitartrate 5 MG Ora l Tablet 06/23/2020 12:00:00 AM EDT eCW1 ([facility]) gabapentin 100 MG Oral Capsule 06/23/2020 12:00:00 AM EDT eCW1 ([facility]) HM Lidocaine Patch 4 % 06/23/2020 12:00:00 AM EDT eCW1 ([facility]) Alendronic acid 70 MG Oral Tablet 06/23/2020 12:00:00 AM EDT eCW1 ([facility]) Acetaminophen 325 MG / Hydrocodone Bitartrate 5 MG Ora l Tablet 06/23/2020 12:00:00 AM EDT eCW1 ([facility]) HM Lidocaine Patch 4 % 06/23/2020 12:00:00 AM EDT eCW1 ([facility]) gabapentin 100 MG Oral Capsule 06/23/2020 12:00:00 AM EDT eCW1 ([facility]) Metformin hydrochloride 500 MG Oral Tablet 06/23/2020 12:00:00 AM E DT eCW1 ([facility]) Alendronic acid 70 MG Oral Tablet 06/23/2020 12:00:00 AM EDT eCW1 ([facility]) Metformin hydrochloride 500 MG Oral Tablet 06/23/2020 12:00:00 AM E DT eCW1 ([facility]) Acetaminophen 325 MG / Hydrocodone Bitartrate 5 MG Ora l Tablet 06/23/2020 12:00:00 AM EDT eCW1 ([facility]) gabapentin 100 MG Oral Capsule 06/23/2020 12:00:00 AM EDT eCW1 ([facility]) HM Lidocaine Patch 4 % 06/23/2020 12:00:00 AM EDT eCW1 ([facility]) Alendronic acid 70 MG Oral Tablet 06/23/2020 12:00:00 AM EDT eCW1 ([facility]) Metformin hydrochloride 500 MG Oral Tablet 06/23/2020 12:00:00 AM E DT eCW1 ([facility]) Acetaminophen 325 MG / Hydrocodone Bitartrate 5 MG Ora l Tablet 06/23/2020 12:00:00 AM EDT eCW1 ([facility]) gabapentin 100 MG Oral Capsule 06/23/2020 12:00:00 AM EDT eCW1 ([facility]) HM Lidocaine Patch 4 % 06/23/2020 12:00:00 AM EDT eCW1 ([facility]) Alendronic acid 70 MG Oral Tablet 06/23/2020 12:00:00 AM EDT eCW1 ([facility]) Metformin hydrochloride 500 MG Oral Tablet 06/23/2020 12:00:00 AM E DT eCW1 ([facility]) Acetaminophen 325 MG / Hydrocodone Bitartrate 5 MG Ora l Tablet 06/23/2020 12:00:00 AM EDT eCW1 ([facility]) gabapentin 100 MG Oral Capsule 06/23/2020 12:00:00 AM EDT eCW1 ([facility]) HM Lidocaine Patch 4 % 06/23/2020 12:00:00 AM EDT eCW1 ([facility]) Alendronic acid 70 MG Oral Tablet 06/23/2020 12:00:00 AM EDT eCW1 ([facility]) Metformin hydrochloride 500 MG Oral Tablet 06/23/2020 12:00:00 AM E DT eCW1 ([facility]) Acetaminophen 325 MG / Hydrocodone Bitartrate 5 MG Ora l Tablet 06/23/2020 12:00:00 AM EDT eCW1 ([facility]) gabapentin 100 MG Oral Capsule 06/23/2020 12:00:00 AM EDT eCW1 ([facility]) HM Lidocaine Patch 4 % 06/23/2020 12:00:00 AM EDT eCW1 ([facility])
[2020-12-03] MEDS: IPRATROPIUM 0.5MG/ALBUTEROL 2.5MG INH SOL UD 3ML (DUONEB) NEB SCH ×3 (12:00→20:00)
[2020-12-03 12:12] LABS: TROPONIN I 0.09 NG/ML (< 0.10)
[2020-12-03 12:30] LABS: RSV AMPLIFICATION NEGATIVE (NEGATIVE)
[2020-12-03] MEDS ORDERED: HOME MED LIST COMPLETE! XX SCH (12:35)
--- NOTE | 2020-12-03 12:50 | HPEPDOC ---
[facility] Medical History & Physical Date of Admission Dec 03, 2020 Date of Service: Dec 03, 2020 Attending Physician: Yin Cortez MD History and Physical CHIEF COMPLAINT: increased SOB HPI: Mrs. Ponce is a 75-year-old female with COPD and diabetes mellitus who returns to [facility] for shortness of breath, increased cough which began this morning. The patient states her shortness of breath frequently becomes exacerbated with activity and she noticed today when she woke up she had increased wheezing, shortness of breath and coughing. She is an active smoker of approximately 1.5 packs/day. She denied chest pain, fevers, chills, nausea, vomiting, abdominal pain. Due to her increased redness of breath she was brought to the emergency room via ambulance after she called 911. In the emergency room vital signs worse able aside from her requiring a baseline 4 L nasal cannula. She had audible wheezing. Abnormal labs included elevated troponin of 0.100.12, blood sugar 478, baseline anemia. Chest x-ray showed bilateral opacities; however, the left lobe appeared to be worse than last imag ing. The patient admitted to some dysuria and a UA was ordered. WBC was mildly elevated at 13.6. She was given steroids, nebulizer treatments, insulin for hyperglycemia and IV fluids in the emergency room. Due to continued audible wheezing with questionable pneumonia the patient was admitted to hospital service for further treatment. ROS: Please see below PMH: 1. Chronic back pain 2. L4 compression 3. Spinal stenosis 4. Peripheral vascular disease s/p right LE angioplasty with stenting 5. Stage 3 CKD 6. Bladder cancer 7. Severe COPD/emphysema 8. Dyslipidemia 9. Insulin-dependent diabetes mellitus 10. Hypothyroidism 11. Hypertension 12. CHF EF 45-50% and grade 1 diastolic dysfunction 13. Right upper lobe lung mass 14. Anxiety/depression PAST SURGICAL HX: 1. Hysterectomy 2. Vaginal tumor removal 3. Bilateral leg stents 4. Lung mass removed 5. Bilateral cataract surgery FAMILYHX: Father: at 76 year old, history of cerebral artery occlusion with cerebral infarct Mother: at 77 year old, history of MD and DM SOCIAL HX: Smoker: current smoker. Denies alcohol or drug abuse. Lives alone. PHYSICAL EXAMINATION: VS: 98.7, 91, 16, 151/56, 98% on 4 L nasal cannula CONSTITUTIONAL: No acute distress, resting comfortably, AAO x 3 EYES: PERRLA, EOM intact HENT, MOUTH: Normocephalic, atraumatic, moist mucous membranes, NC in place NECK: SUPPLE, no JVD, no lymphadenopathy, no carotid bruit CV: Regular rate and rhythm, S1S2 normal, no murmurs/rubs/gallops RESPIRATORY: Audible wheezing appreciated, wheezing bilaterally on exam. No rhonchi or crackles appreciated GI: BS positive in 4 quadrants, soft, nontender, nondistended, no rebound or guarding, no organomegaly : Deferred MUSCULOSKELETAL: Normal ROM. No cyanosis, clubbing, swelling, joint deformity, extremity edema INTEGUMENTARY: Intact, no rashes, no lesions, no erythema NEUROLOGIC: Cranial Nerves II-XII are intact, no focal deficits PSYCHIATRIC: Mood and affect are normal CURRENT MEDICATIONS: Please see below LABORATORY DATA: Please see below IMAGING: Chest x-ray: 1. Bilateral opacities. Unchanged on the right. Increased on the left. 2. Mild left pleural effusion. New from prior. MICRO: Follow-up blood cultures, sputum culture and urine analysis ASSESSMENT: 75-year-old female admitted for acute on chronic COPD exacerbation, questionable pneumonia. #Acute on chronic hypoxic respiratory failure secondary to COPD with exacerbation -Audible wheezing, hypoxia with walking, currently on home amount of oxygen 4 L -Patient has a history of noncompliance with medications, continues to smoke; last cigarette prior to admission. Frequently leaves AMA prior to completion of antibiotic course. -Chest x-ray above, cannot rule out pneumonia -Follow-up procalcitonin -Continue with methylprednisolone, nebulizers ATC and PRN, antibiotics. Monitor O2 with activity #Healthcare associated pneumonia? -Chest x-ray above -Follow-up pro-calcitonin, SPUTUM culture, blood cultures. If procal neg, stop HCAP coverage -Vancomycin, cefepime for now. De-escalate as seen fit #Elevated troponin rule out evolving acute coronary syndrome versus ischemic demand secondary to hypoxia -Troponin elevated at 0.100.12. -Hx of recent NSTEMI II, as noted with chart review last admission- patient was without interventions. 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 -ECG abnormal; however, similar to last on file -Patient denies chest pain. Has chronic shortness of breath which has worsened she states -Follow-up cycling troponins, BNP. If BNP elevated consider repeat echo -Telemetry #Left-sided pleural effusion with hx of chronic CHF, systolic -Last echo on file EF 45-50% -Monitor fluid balance, I's and O's, urinary output -Patient appears euvolemic on exam -Follow-up BNP -Chest x-ray above -Consider intermittent diuresis if worsens #Dysuria Rule out UTI -Follow-up UA -On antibiotic currently #Deconditioning 2/2 to acute on chronic respiratory failure, COPD exacerbation -PT has previously reviewed and assessed, recommended home w/Services -Follow-up PT/OT consult # DM type II -Hyperglycemia worsened and likely secondary to steroids -Initial blood sugar 478 status post insulin in ER, repeat pending -Continue Levemir 20 units subcu daily. -FS ac/hs, ISS, Consistent carb diet. #HTN -Stable. Monitor BP in setting of above. Continue lisinopril. 2 g sodium diet. #Hyperlipidemia -Continue atorvastatin 40 mg nightly #Hypothyroidism -Continue home levothyroxine #Anxiety/depression -Continue home duloxetine and as needed hydroxyzine #PUlmonary nodule -CT chest finding: Patient with history of CT chest in September that showed right- sided pulmonary nodules with recommendations for interval follow-up 3 to 6 months. At present patient is 2 months out. -Consider CT chest pending clinical course-patient was encouraged to follow-up outpatient with her primary care doctors. DVT prophylaxis: Lovenox subcu DISPOSITION: Acute inpatient. PT/OT. Hx of leaving AMA but encouraged to stay for further workup and treatment. Plan is home at discharge. Vital Signs Vital Signs Date Time Temp Pulse Resp B/P (MAP) Pulse Ox O2 Delivery O2 Flow Rate FiO2 12/03/20 07:00 91 16 151/56 (87) 98 Nasal Cannula 4.0 12/03/20 03:33 98.7 Laboratory Data Labs 24H Laboratory Tests 2 12/03/20 04:49: Immature Granulocyte % (Auto) 0.7, Neutrophils (%) (Auto) 90.7H, Lymphocytes (%) (Auto) 3.5L, Monocytes (%) (Auto) 3.7, Eosinophils (%) (Auto) 1.1, Basophils (%) (Auto) 0.3, Neutrophils # (Auto) 12.3H, Lymphocytes # (Auto) 0.5L, Monocytes # (Auto) 0.5, Eosinophils # (Auto) 0.2, Basophils # (Auto) 0.0, Nucleated Red Blood Cells % (auto) 0.0, Anion Gap 4L, Glomerular Filtration Rate 47.1, Calcium Level 8.1L, Total Bilirubin 0.3, Direct Bilirubin < 0.1, Aspartate Amino Transf (AST/SGOT) 17, Alanine Aminotransferase (ALT/SGPT) 23, Alkaline Phosphatase 94, Total Creatine Kinase 59, Creatine Kinase MB 4.2H, Creatine Kinase MB Relative Index 7.12H, Troponin I 0.10, Total Protein 5.5L, Albumin 2.5L, Albumin/Globulin Ratio 0.8L 12/03/20 04:53: POC Troponin I (Misc) 0.12H 12/03/20 11:29: Troponin I 0.09 12/03/20 11:47: CBC/BMP Laboratory Tests 12/03/20 04:49 Microbiology Microbiology 12/03/20 Blood Culture, Received Pending 12/03/20 Blood Culture, Received Pending Home Medications Scheduled Amlodipine Besylate (Amlodipine Besylate) 10 Mg Tablet, 10 MG PO QPM TAKES AT 1700 Atorvastatin Calcium (Atorvastatin Calcium) 40 Mg Tablet, 40 MG PO QHS Clopidogrel Bisulfate (Plavix) 75 Mg Tablet, 75 MG PO DAILY Duloxetine Hcl (Duloxetine HCl) 60 Mg Capsule.dr, 60 MG PO DAILY Fluticasone/Vilanterol (Breo Ellipta 200-25 Mcg INH) 1 Each Blst.w.dev, 1 PUFF INH DAILY Gabapentin (Gabapentin) 100 Mg Capsule, 100 MG PO QHS Hydralazine HCl (Hydralazine HCl) 50 Mg Tablet, 50 MG PO BID 0800, 1700 Insulin Detemir (Levemir) 100 Unit/1 Ml Vial, 20 UNITS SC DAILY TAKES AT 1500 Levothyroxine Sodium (Synthroid) 75 Mcg Tablet, 75 MCG PO DAILY Lisinopril (Lisinopril) 20 Mg Tablet, 20 MG PO BID 0800, 1700 Metformin HCl (Metformin HCl) 500 Mg Tablet, 500 MG PO BID 0800, 1700 Scheduled PRN Hydroxyzine HCl (Hydroxyzine HCl) 10 Mg Tablet, 10 MG PO Q8H PRN for ANXIETY Allergies Coded Allergies: Sulfa (Sulfonamide Antibiotics) (Verified Allergy, Mild, RASH, 10/07/20) bacitracin (Verified Allergy, Mild, RASH, 10/07/20) cortisone (Verified Allergy, Mild, RASH, 10/07/20) neomycin (Verified Allergy, Mild, RASH, 10/07/20) polymyxin B (Verified Allergy, Mild, RASH, 10/07/20) red dye (Unverified Allergy, Mild, rash OCCURRED ONCE WITH CAPSULE MED NO OTHER PROBLEMS WIT, 10/07/20) fluoxetine (Unverified Allergy, Unknown, 10/07/20) tramadol (Unverified Allergy, Unknown, 10/07/20) HAS HAD OXYCODONE BEFORE WITHOUT ISSUE A-FIB/CHADSVASC A-FIB History Current/History of A-Fib/PAF?: No Current PO Anticoag Therapy: No Age/Risk Factor Scoring CHADSVASC: CHADSVASC Response (Comments) Value Age Risk Factor Age >/= 75 years old 2 Gender Risk Factor Female 1 Hx of CHF Yes 1 Hx of HTN Yes 1 Hx of Stroke/TIA/or VTE No 0 Hx of Diabetes Yes 1 Hx of Vascular Disease No 0 Total 6 Treatment Treatment ordered: Other Other anticoagulant ordered: Yin Rogers MD Dec 03, 2020 12:50
[2020-12-03] MEDS ORDERED: hydrOXYzine 10 MG TAB PO PRN (13:15)
[2020-12-03] MEDS: HumaLOG INSULIN (NovoLOG) PER UNIT SC SCH ×2 (13:35→18:05)
[2020-12-03] MEDS: CLOPIDOGREL 75 MG TAB PO SCH (13:40)
[2020-12-03] MEDS: DULoxetine 30MG CAPSULE (CYMBALTA) PO SCH (13:40)
[2020-12-03 14:00] VITALS: BP 136/89
[2020-12-03] MEDS ORDERED: LEVEMIR (INSULIN DETEMIR) 1 UNITS/0.01ML SC SCH (15:00)
[2020-12-03] MEDS: **hydrALAZINE** 50 MG TAB PO SCH (16:06)
[2020-12-03] MEDS ORDERED: CEFEPIME HCL 1 GM in D5W MINI-BAG PLUS 50 ML IV SCH (18:00)
[2020-12-03] MEDS: FUROSEMIDE 40MG/4ML VIAL (J1940) IV SCH (18:04)
[2020-12-03] MEDS: methylPREDNISolone 125MG 2ML VIAL IV SCH (18:04)
[2020-12-03 21:00] VITALS: BP 120/56
[2020-12-03] MEDS ORDERED: HumaLOG INSULIN (NovoLOG) PER UNIT SC SCH (21:00)
[2020-12-03] MEDS: GABAPENTIN 100 MG CAP PO SCH (21:03)
[2020-12-03] MEDS: ATORVASTATIN 20 MG TAB PO SCH (21:03)
[2020-12-04] MEDS: FUROSEMIDE 40MG/4ML VIAL (J1940) IV SCH ×3 (01:41→21:20)
[2020-12-04] MEDS: methylPREDNISolone 125MG 2ML VIAL IV SCH ×3 (01:41→18:13)
[2020-12-04] MEDS: IPRATROPIUM 0.5MG/ALBUTEROL 2.5MG INH SOL UD 3ML (DUONEB) NEB SCH ×6 (03:06→20:00)
[2020-12-04] MEDS: LEVOTHYROXINE 75MCG TABLET (0.075MG) PO SCH (05:56)
[2020-12-04 06:18] LABS: HEMATOCRIT 27.3 % (36.0-47.0); MEAN CORPUSCULAR VOLUME 94.1 fl (80.0-96.0); PLATELET COUNT, AUTOMATED 179 10^3/uL (150-450); WHITE BLOOD COUNT 11.4 10^3/uL (4.0-10.0)
[2020-12-04 06:47] VITALS: BP 172/81
[2020-12-04 06:48] LABS: ALBUMIN 2.3 GM/DL (3.2-5.2); BILIRUBIN,TOTAL 0.3 MG/DL (0.2-1.0); CALCIUM LEVEL 8.3 MG/DL (8.8-10.2); CREATININE FOR GFR 1.19 MG/DL (0.55-1.30); GLOMERULAR FILTRATION RATE 47.1 (>39); POTASSIUM SERUM 3.9 MEQ/L (3.5-5.1); TOTAL PROTEIN 5.6 GM/DL (6.4-8.2)
[2020-12-04] MEDS ORDERED: cefTRIAXone SOD 1 GM in D5W MINI-BAG PLUS 50 ML IV SCH (09:00)
[2020-12-04] MEDS: DULoxetine 30MG CAPSULE (CYMBALTA) PO SCH (09:43)
[2020-12-04] MEDS: CLOPIDOGREL 75 MG TAB PO SCH (09:44)
[2020-12-04] MEDS: **hydrALAZINE** 50 MG TAB PO SCH ×2 (09:44→18:13)
[2020-12-04 14:00] VITALS: BP 156/73
--- NOTE | 2020-12-04 14:24 | IPNPDOC ---
Date Seen The patient was seen on 12/04/20. Progress Note SUBJECTIVE: No acute events overnight. BS low this AM at 46, improved. Stopped FS coverage and insulin glargine; however, needed to restart later in day due to BS being > 250-300. Denies chest pain, n/v/d, fevers, chills. OBJECTIVE: PHYSICAL EXAMINATION: VS: Please see below CONSTITUTIONAL: No acute distress, sitting at bedside commode, AAO x 3 EYES: PERRLA, EOM intact HENT, MOUTH: Normocephalic, atraumatic, moist mucous membranes, NC in place NECK: SUPPLE, no JVD, no lymphadenopathy, no carotid bruit CV: Regular rate and rhythm, S1S2 normal, no murmurs/rubs/gallops RESPIRATORY: Audible wheezing appreciated, wheezing bilaterally on exam. No rhonchi or crackles appreciated GI: BS positive in 4 quadrants, soft, nontender, nondistended, no rebound or guarding, no organomegaly : Deferred MUSCULOSKELETAL: Normal ROM. No cyanosis, clubbing, swelling, joint deformity, extremity edema INTEGUMENTARY: Intact, no rashes, no lesions, no erythema NEUROLOGIC: Cranial Nerves II-XII are intact, no focal deficits PSYCHIATRIC: Mood and affect are normal CURRENT MEDICATIONS: Please see below LABORATORY DATA: Please see below IMAGING: Chest x-ray: 1. Bilateral opacities. Unchanged on the right. Increased on the left. 2. Mild left pleural effusion. New from prior. MICRO: Follow-up blood cultures, sputum culture and urine analysis ASSESSMENT: 75-year-old female admitted for acute on chronic COPD exacerbation, CHF exacerbation, questionable pneumonia. #Acute on chronic hypoxic respiratory failure secondary to COPD with exacerbation -Audible wheezing slightly improved, hypoxia with walking, currently on home amount of oxygen 4 L -Patient has a history of noncompliance with medications, continues to smoke; last cigarette prior to admission. Frequently leaves AMA prior to completion of antibiotic course. -Chest x-ray above, cannot rule out pneumonia -Procalcitonin low so stopped HCAP coverage -Continue with methylprednisolone, nebulizers ATC and PRN, antibiotics. Monitor O2 with activity #Elevated troponin likely 2/2 to ischemic demand secondary to hypoxia -Troponin elevated at 0.100.12--> 0.08 -Hx of recent NSTEMI II, as noted with chart review last admission- patient was without interventions. 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 -ECG abnormal; however, similar to last on file -Patient denies chest pain. Has chronic shortness of breath which has worsened she states -Worsened BNP -Telemetry #Left-sided pleural effusion with hx of chronic CHF, systolic -Neg fluid balance/24 hours -Last echo on file EF 45-50% -BNP 29K, increased from 14K last admission -Patient appears euvolemic on exam -Monitor fluid balance, I's and O's, urinary output, 1800 mL fluid restriction -Chest x-ray above -2 gm sodium diet -lasix 40 mg IV Q12 H, CCB and ACEi. Watch Cr closely #Hypoglycemia- resolved -Hx of uncontrolled DM type II, HbA1c 9.2 10/2020- likely brittle with especially high BS with steroids -Initial blood sugar 478 status post insulin in ER, dropped to 47 this AM but is back up to >300 -restarted Levemir 20 units subcu daily, FS AC, ISS, Consistent carb diet. -Holding HS coverage for now, if high tomorrow AM then consider restarting #Dysuria Rule out UTI -Follow-up UA -On ceftriaxone only currently for this while ruling out #Deconditioning 2/2 to acute on chronic respiratory failure, COPD exacerbation -PT has previously reviewed and assessed, recommended home w/Services -Follow-up PT/OT consult #HTN, uncontrolled -BP 170's this afternoon. - Monitor BP in setting of above. -Continue lasix, CCB, lisinopril - 2 g sodium diet. #Hyperlipidemia -Continue atorvastatin 40 mg nightly #Hypothyroidism -Continue home levothyroxine #Anxiety/depression -Continue home duloxetine and as needed hydroxyzine #Pulmonary nodule -CT chest finding: Patient with history of CT chest in September that showed right-sided pulmonary nodules with recommendations for interval follow-up 3 to 6 months. At present patient is 2 months out. -Consider CT chest pending clinical course-patient was encouraged to follow-up outpatient with her primary care doctors. DVT prophylaxis: Lovenox subcu DISPOSITION: Acute inpatient. PT/OT. Plan is home at discharge. VS, I&O, 24H, Fishbone Vital Signs/I&O Vital Signs Date Time Temp Pulse Resp B/P (MAP) Pulse Ox O2 Delivery O2 Flow Rate FiO2 12/04/20 09:44 186/92 12/04/20 06:47 97.1 79 20 97 Nasal Cannula 4.0 I&O- Last 24 Hours up to 6 AM 12/04/20 06:00 Intake Total 825 ml Balance 825 ml Laboratory Data 24H LABS Laboratory Tests 2 12/03/20 15:48: Troponin I 0.08 12/03/20 17:36: Bedside Glucose (Misc Panel) 322H 12/03/20 18:10: Methicillin-Resist S.aureus DNA PCR DETECTEDA 12/03/20 19:40: Bedside Glucose (Misc Panel) 284H 12/04/20 05:47: Nucleated Red Blood Cells % (auto) 0.0, Anion Gap 3L, Glomerular Filtration Rate 47.1, Calcium Level 8.3L, Total Bilirubin 0.3, Aspartate Amino Transf (AST/SGOT) 14, Alanine Aminotransferase (ALT/SGPT) 21, Alkaline Phosphatase 79, Total Protein 5.6L, Albumin 2.3L, Albumin/Globulin Ratio 0.7L 12/04/20 12:03: Bedside Glucose (Misc Panel) 311H CBC/BMP Laboratory Tests 12/04/20 05:47 Microbiology Microbiology 12/03/20 Blood Culture - Preliminary, Resulted No growth after 24 hours . All specim... 12/03/20 Blood Culture - Preliminary, Resulted No growth after 24 hours . All specim... Yin Cortez MD Dec 04, 2020 14:24
[2020-12-04 15:04] LABS: INR 0.9; PROTHROMBIN TIME 12.5 SECONDS (12.7-14.5)
[2020-12-04 15:05] LABS: PARTIAL THROMBOPLASTIN TIME 25.6 SECONDS (25.9-37.0)
[2020-12-04] MEDS: ENOXAPARIN 40MG/0.4ML SYRINGE (J1650 PER 10MG) SC SCH (16:09)
[2020-12-04] MEDS ORDERED: LEVEMIR (INSULIN DETEMIR) 1 UNITS/0.01ML SC ONE (17:15)
[2020-12-04] MEDS ORDERED: HumaLOG INSULIN (NovoLOG) PER UNIT SC SCH ×2 (17:30→21:00)
[2020-12-04 20:00] VITALS: BP 147/72
[2020-12-04] MEDS ORDERED: HumuLIN R (REGULAR) INSULIN (NovoLIN R) **100U/ML** PER UNIT IV STA (21:06)
[2020-12-04] MEDS: ATORVASTATIN 20 MG TAB PO SCH (21:19)
[2020-12-04] MEDS: GABAPENTIN 100 MG CAP PO SCH (21:19)
[2020-12-04] MEDS: HumaLOG INSULIN (NovoLOG) PER UNIT SC SCH (21:30)
[2020-12-04 22:00] VITALS: BP 147/72
[2020-12-05] MEDS: HumaLOG INSULIN (NovoLOG) PER UNIT SC SCH ×5 (01:30→17:21)
[2020-12-05] MEDS: IPRATROPIUM 0.5MG/ALBUTEROL 2.5MG INH SOL UD 3ML (DUONEB) NEB SCH ×6 (04:00→20:00)
[2020-12-05] MEDS: LEVOTHYROXINE 75MCG TABLET (0.075MG) PO SCH (05:58)
[2020-12-05 06:00] VITALS: BP 147/73
[2020-12-05] MEDS ORDERED: methylPREDNISolone 40MG 1ML VIAL IV SCH (06:00)
[2020-12-05 06:03] LABS: HEMATOCRIT 28.4 % (36.0-47.0); HEMOGLOBIN 9.4 g/dl (12.0-15.5); MEAN CORPUSCULAR HEMOGLOBIN 31.2 pg (27.0-33.0); MEAN CORPUSCULAR HGB CONC 33.1 g/dl (32.0-36.5); MEAN CORPUSCULAR VOLUME 94.4 fl (80.0-96.0); PLATELET COUNT, AUTOMATED 213 10^3/uL (150-450); RED BLOOD COUNT 3.01 10^6/uL (4.00-5.40); WHITE BLOOD COUNT 12.3 10^3/uL (4.0-10.0)
[2020-12-05 06:34] LABS: ALBUMIN 2.4 GM/DL (3.2-5.2); BILIRUBIN,TOTAL 0.1 MG/DL (0.2-1.0); CALCIUM LEVEL 8.5 MG/DL (8.8-10.2); CREATININE FOR GFR 1.2 MG/DL (0.55-1.30); GLOMERULAR FILTRATION RATE 46.6 (>39); TOTAL PROTEIN 5.1 GM/DL (6.4-8.2)
[2020-12-05] MEDS ORDERED: LEVEMIR (INSULIN DETEMIR) 1 UNITS/0.01ML SC SCH (09:00)
[2020-12-05] MEDS: CLOPIDOGREL 75 MG TAB PO SCH (09:21)
[2020-12-05] MEDS: ENOXAPARIN 40MG/0.4ML SYRINGE (J1650 PER 10MG) SC SCH (09:21)
[2020-12-05] MEDS: FUROSEMIDE 40MG/4ML VIAL (J1940) IV SCH (09:21)
[2020-12-05] MEDS: DULoxetine 30MG CAPSULE (CYMBALTA) PO SCH (09:21)
[2020-12-05] MEDS: **hydrALAZINE** 50 MG TAB PO SCH ×2 (09:22→17:52)
--- NOTE | 2020-12-05 15:04 | IPNPDOC ---
Text Note Date of Service The patient was seen on 12/05/20. NOTE SUBJECTIVE: -No acute events overnight. -Denies chest pain, n/v/d, fevers, chills. OBJECTIVE: VS: Please see below CONSTITUTIONAL: No acute distress, AAO x 3 EYES: PERRLA, EOM intact HENT, MOUTH: Normocephalic, atraumatic, moist mucous membranes, NC in place NECK: SUPPLE, no JVD, no lymphadenopathy, no carotid bruit CV: Regular rate and rhythm, S1S2 normal, no murmurs/rubs/gallops RESPIRATORY: No wheezing this morning, bibasilar crackles, prolonged expiratory phase GI: Normoactive bowel sounds, soft, nontender, nondistended, no rebound or guarding, no organomegaly EXT: No lower extremity edema, WWP NEUROLOGIC: Cranial Nerves 3-12 are intact, no focal deficits PSYCHIATRIC: Mood and affect are normal LABORATORY DATA: Reviewed WBC 12.3 hgb 9.4 platelets 213 na 139 K 4 Cr 1.2 IMAGING: Chest x-ray: 1. Bilateral opacities. Unchanged on the right. Increased on the left. 2. Mild left pleural effusion. New from prior. MICRO: Follow-up blood cultures, sputum culture UA negative ASSESSMENT: 75-year-old W admitted for COPD exacerbation and HFrEF exacerbation. #Chronic hypoxic respiratory failure secondary w/ COPD exacerbation i/s/o continued smoking and HFrEF exacerbation -Audible wheezing now improved -Currently on home amount of oxygen 4 L -Patient has a history of noncompliance with medications, continues to smoke; last cigarette prior to admission. Frequently leaves AMA prior to completion of antibiotic course. -Chest x-ray above -Discontinue methylprednisolone, place on pred 40 QD, nebulizers ATC and PRN, antibiotics. Monitor O2 with activity #Elevated troponin likely 2/2 to ischemic demand secondary to hypoxemia -Troponin elevated at 0.100.12--> 0.08 -Hx of recent NSTEMI II, as noted with chart review last admission- patient was without interventions. 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 -ECG abnormal; however, similar to last on file -Denies chest pain. Has chronic shortness of breath -Worsened BNP w/ HFrEF managed as noted below -Telemetry #HFrEF exacerbation w/ Left-sided pleural effusion -Neg 2L fluid balance/24 hours -Last echo on file EF 45-50% -BNP 29K, increased from 14K last admission -Monitor fluid balance, I's and O's -1800 mL fluid restriction -2 gm sodium diet -lasix 40 mg IV Q12 H, CCB and ACEi. Plan for switch back to PO diuretic tomorrow AM -Daily BMP #Uncontrolled DM type II, HbA1c 9.2 10/2020 -Levemir 20 units subcu daily, FS AC, ISS, Consistent carb diet. -FSBG ACHS #Dysuria: no evidence of bacterial UTI -DC ceftriaxone #Deconditioning 2/2 to acute on chronic respiratory failure, COPD exacerbation, HFrEF -Follow-up PT/OT consult #HTN, uncontrolled -Continue lasix, CCB, lisinopril -2 g sodium diet. #Hyperlipidemia -Continue atorvastatin 40 mg nightly #Hypothyroidism -Continue home levothyroxine #Anxiety/depression -Continue home duloxetine and as needed hydroxyzine #Pulmonary nodule -CT chest finding: Patient with history of CT chest in September that showed right- sided pulmonary nodules with recommendations for interval follow-up 3 to 6 months. At present patient is 2 months out. -Consider CT chest pending clinical course-patient was encouraged to follow-up outpatient with her primary care doctors. DVT prophylaxis: Lovenox subcu DISPOSITION: Acute inpatient. PT/OT. Plan is home w/ services (if accepted as she smokes while on O2) at discharge. VS,Fishbone, I+O VS, Fishbone, I+O Laboratory Tests 12/05/20 05:49 Vital Signs Date Time Temp Pulse Resp B/P (MAP) Pulse Ox O2 Delivery O2 Flow Rate FiO2 12/05/20 06:00 98.0 90 16 147/73 (97) 97 Nasal Cannula 4.0 I&O- Last 24 Hours up to 6 AM 12/05/20 06:00 Intake Total 780 ml Output Total 2400 ml Balance -1620 ml ALBA CRAWLEY MD Dec 05, 2020 08:48
[2020-12-05 17:51] VITALS: BP 155/79
[2020-12-05] MEDS ORDERED: HumaLOG INSULIN (NovoLOG) PER UNIT SC SCH (21:00)
[2020-12-06] MEDS ORDERED: predniSONE 20 MG TAB PO SCH (09:00)
--- NOTE | 2020-12-06 20:05 | DS.PDOC ---
Discharge Summary General Date of Admission Dec 03, 2020 at 11:04 Date of Discharge 12/05/2020 Attending Physician: ALBA CRAWLEY MD Discharge Summary PROCEDURES PERFORMED DURING STAY: None ADMITTING DIAGNOSES: COPD exacerbation i/s/o med non-compliance and continued smoking DISCHARGE DIAGNOSES: COPD exacerbation i/s/o med non-compliance and continued smoking Chronic hypoxemic respiratory failure HFpEF exacerbation Chronic back pain Peripheral vascular disease s/p right LE angioplasty with stenting Stage 3 CKD Bladder cancer Dyslipidemia Insulin-dependent diabetes mellitus Hypothyroidism Hypertension CHF EF 45-50% and grade 1 diastolic dysfunction Has a known Right upper lobe lung mass Anxiety/depression COMPLICATIONS/CHIEF COMPLAINT: Copd With Acute Exacerbation. HISTORY OF PRESENT ILLNESS: 75-year-old W with COPD and diabetes mellitus who returns to [facility] for shortness of breath, increased cough which began on the day of presentation. The patient stated her shortness of breath frequently becomes exacerbated with activity and she noticed today when she woke up she had increased wheezing, shortness of breath and coughing. She is an active smoker of approximately 1.5 packs/day. She denied chest pain, fevers, chills, nausea, vomiting, abdominal pain. Due to her increased redness of breath she was brought to the emergency room via ambulance after she called 911. HOSPITAL COURSE: In the emergency room vital signs were stable and she was on her baseline 4 L nasal cannula. She did have audible wheezing, tachypnea and labored breathing. Abnormal labs included elevated troponin of 0.100.12, blood sugar 478, baseline anemia. Chest x-ray showed bilateral opacities; however, the left lobe appeared to be worse than last imaging. The patient admitted to some dysuria and a UA was ordered that was ultimately bland. WBC was mildly elevated at 13.6. She was given steroids, nebulizer treatments, insulin for hyperglycemia and IV fluids in the emergency room. Due to continued audible wheezing with questionable pneumoni a the patient was admitted to hospital service for further treatment. Procalcitonin was negative and no antibiotics were given as she did not clinically did not have evidence of bacterial PNA. Ultimately the most notable finding was a highly elevated proBNP and she was given some IV diuretics with improvement in symptoms and continued steroids that were eventually downgraded to PO prednisone. Her SOB improved. Unfortunately before she could be optimized, she decided to sign out AMA on the evening of 12/05. DISCHARGE MEDICATIONS: Please see below. ALLERGIES: Please see below. PHYSICAL EXAMINATION ON DISCHARGE: LEFT AMA LABORATORY DATA: Please see below. IMAGING: Chest x-ray: 1. Bilateral opacities. Unchanged on the right. Increased on the left. 2. Mild left pleural effusion. New from prior. PROGNOSIS: Fair. high risk for readmission given poor medical compliance and continued smoking ACTIVITY: As tolerated. DIET: consistent carb DISCHARGE PLAN: AMA DISPOSITION: 07 Against Medical Advice. DISCHARGE INSTRUCTIONS: Left AMA ITEMS TO FOLLOWUP ON ON OUTPATIENT: COPD Smoking cessation DISCHARGE CONDITION: Stable TIME SPENT ON DISCHARGE: 46 minutes. Vital Signs/I&Os Vital Signs Date Time Temp Pulse Resp B/P (MAP) Pulse Ox O2 Delivery O2 Flow Rate FiO2 12/05/20 17:51 84 155/79 12/05/20 09:00 4.0 12/05/20 06:00 98.0 16 97 Nasal Cannula I&O- Last 24 Hours up to 6 AM 12/06/20 06:00 Intake Total 760 ml Output Total 1300 ml Balance -540 ml Microbiology Microbiology 12/04/20 Gram Stain - Final, Complete 12/04/20 Sputum Culture - Final, Complete Corynebacterium Species 12/03/20 Blood Culture - Preliminary, Resulted No Growth after 72 hours. All specime... 12/03/20 Blood Culture - Preliminary, Resulted No Growth after 72 hours. All specime... Discharge Medications Scheduled Amlodipine Besylate (Amlodipine Besylate) 10 Mg Tablet, 10 MG PO QPM, (Reported) TAKES AT 1700 Atorvastatin Calcium (Atorvastatin Calcium) 40 Mg Tablet, 40 MG PO QHS, (Reported) Clopidogrel Bisulfate (Plavix) 75 Mg Tablet, 75 MG PO DAILY, (Reported) Duloxetine Hcl (Duloxetine HCl) 60 Mg Capsule.dr, 60 MG PO DAILY, (Reported) Fluticasone/Vilanterol (Breo Ellipta 200-25 Mcg INH) 1 Each Blst.w.dev, 1 PUFF INH DAILY, (Reported) Gabapentin (Gabapentin) 100 Mg Capsule, 100 MG PO QHS, (Reported) Hydralazine HCl (Hydralazine HCl) 50 Mg Tablet, 50 MG PO BID, (Reported) 0800, 1700 Insulin Detemir (Levemir) 100 Unit/1 Ml Vial, 20 UNITS SC DAILY, (Reported) TAKES AT 1500 Levothyroxine Sodium (Synthroid) 75 Mcg Tablet, 75 MCG PO DAILY, (Reported) Lisinopril (Lisinopril) 20 Mg Tablet, 20 MG PO BID, (Reported) 0800, 1700 Metformin HCl (Metformin HCl) 500 Mg Tablet, 500 MG PO BID, (Reported) 0800, 1700 Scheduled PRN Hydroxyzine HCl (Hydroxyzine HCl) 10 Mg Tablet, 10 MG PO Q8H PRN for ANXIETY, (Reported) Allergies Coded Allergies: Sulfa (Sulfonamide Antibiotics) (Verified Allergy, Mild, RASH, 10/07/20) bacitracin (Verified Allergy, Mild, RASH, 10/07/20) cortisone (Verified Allergy, Mild, RASH, 10/07/20) neomycin (Verified Allergy, Mild, RASH, 10/07/20) polymyxin B (Verified Allergy, Mild, RASH, 10/07/20) red dye (Unverified Allergy, Mild, rash OCCURRED ONCE WITH CAPSULE MED NO OTHER PROBLEMS WIT, 10/07/20) fluoxetine (Unverified Allergy, Unknown, 10/07/20) tramadol (Unverified Allergy, Unknown, 10/07/20) HAS HAD OXYCODONE BEFORE WITHOUT ISSUE ALBA CRAWLEY MD Dec 06, 2020 20:05
== END 2020-12-05 20:58 | disposition left against medical advice (07) | DRG 291 ==
LOC: M ED 03:13 → M ED INP 11:04 → M MSPAV 14:12
PROVIDERS: ADMIT Internal Medicine; ATTEND Internal Medicine
DX: I13.0 Hypertensive heart and chronic kidney disease with heart failure and stage 1 through stage 4 chronic kidney disease, or unspecified chronic kidney disease (principal); J96.21 Acute and chronic respiratory failure with hypoxia; I50.23 Acute on chronic systolic (congestive) heart failure; I24.8 Other forms of acute ischemic heart disease; J44.1 Chronic obstructive pulmonary disease with (acute) exacerbation; F17.210 Nicotine dependence, cigarettes, uncomplicated; E11.51 Type 2 diabetes mellitus with diabetic peripheral angiopathy without gangrene; N18.30 Chronic kidney disease, stage 3 unspecified; E11.22 Type 2 diabetes mellitus with diabetic chronic kidney disease; E78.5 Hyperlipidemia, unspecified; E03.9 Hypothyroidism, unspecified; E11.65 Type 2 diabetes mellitus with hyperglycemia; R30.0 Dysuria; R91.8 Other nonspecific abnormal finding of lung field; F41.9 Anxiety disorder, unspecified; F32.9 Major depressive disorder, single episode, unspecified; Z95.820 Peripheral vascular angioplasty status with implants and grafts; Z79.4 Long term (current) use of insulin; Z79.899 Other long term (current) drug therapy; Z79.02 Long term (current) use of antithrombotics/antiplatelets; Z88.2 Allergy status to sulfonamides; Z88.8 Allergy status to other drugs, medicaments and biological substances; Z88.5 Allergy status to narcotic agent; Z91.048 Other nonmedicinal substance allergy status; Z99.81 Dependence on supplemental oxygen; Z85.51 Personal history of malignant neoplasm of bladder

== ENCOUNTER 2020-12-19 15:31 | Emergency (ER) | payer MEDICARE ==
[~2020-12-19] VITALS: Ht 157.5 cm; Wt 55.6 kg
[2020-12-19 15:43] VITALS: BP 182/77
[2020-12-19 16:39] LABS: ABG BASE EXCESS 2.6 (-2.0-2.0); ABG O2 SATURATION 85.5 % (95.0-99.0); ABG PARTIAL PRESSURE CO2 41.2 mmHg (35.0-45.0); ABG STANDARD HCO3 26.6 MEQ/L (22.0-26.0); ABG TOTAL CO2 28.3 MEQ/L (23.0-31.0); ABG pH (ARTERIAL) 7.435 UNITS (7.350-7.450)
[2020-12-19 16:40] LABS: ABG PARTIAL PRESSURE O2 49.5 mmHg (75.0-100.0)
--- NOTE | 2020-12-19 16:51 | REP ---
INDICATION: DYSPNEA/COUGH. COMPARISON: AP CXR 12/03/2020, 11/30/2020, 11/08/2020, 10/29/2020. TECHNIQUE: Portable AP seated FINDINGS: Heart size with left ventricular configuration, not grossly enlarged the aorta is calcified and tortuous but unchanged airway intact pulmonary arteries are prominent suggesting pulmonary artery hypertension, likely on the basis of COPD small of a left pleural effusion compared to 12/03/2020. There is new right pleural effusion compared to that prior study. Chronic pleural thickening laterally in the upper lung zone on the right. Diffuse fibrotic changes are noted. There is pulmonary venous hypertension. Underlying fibrosis makes early interstitial edema difficult to exclude but vessel margins remain fairly sharp. However there is a cortical step-off of the anterolateral right 8th rib which may be contributing to the right pleural effusion, although I see it on multiple prior studies. IMPRESSION: 1. COPD and emphysematous changes with fibrosis as before. Chronic pleural thickening right upper lateral chest wall, stable. 2. Smaller left pleural effusion and basilar atelectasis with new right base effusion. There is a step-off/fracture of the lateral/anterolateral right 8th rib on multiple prior studies this could still have the effect on the atelectasis and new right base pleural effusion laterally. 3. No gross cardiomegaly but some pulmonary venous hypertension seen. Underlying fibrosis makes early interstitial edema difficult to exclude but the vessel margins are still fairly distinct. <Electronically signed by Darvin Monroe > 12/19/20 [id number]
[2020-12-19 16:52] LABS: BASO # 0.1 10^3/uL (0.0-0.2); BASO % 0.4 % (0.0-1.0); EOS % 0.1 % (0.0-3.0); HEMATOCRIT 30.8 % (36.0-47.0); HEMOGLOBIN 10.1 g/dl (12.0-15.5); LYMPH # 0.5 10^3/uL (1.5-5.0); LYMPH % 3.1 % (24.0-44.0); MEAN CORPUSCULAR HGB CONC 32.8 g/dl (32.0-36.5); MEAN CORPUSCULAR VOLUME 94.5 fl (80.0-96.0); MONO # 0.2 10^3/uL (0.0-0.8); MONO % 1.3 % (2.0-8.0); NEUTROPHILS # 14.6 10^3/uL (1.5-8.5); NEUTROPHILS % 94.5 % (36.0-66.0); PLATELET COUNT, AUTOMATED 160 10^3/uL (150-450); RED BLOOD COUNT 3.26 10^6/uL (4.00-5.40); WHITE BLOOD COUNT 15.4 10^3/uL (4.0-10.0)
[2020-12-19 17:02] LABS: INR 0.88; PROTHROMBIN TIME 12.4 SECONDS (12.7-14.5)
[2020-12-19 18:13] LABS: ALBUMIN 2.3 GM/DL (3.2-5.2); BILIRUBIN,DIRECT 0.1 MG/DL (0.0-0.2); BILIRUBIN,TOTAL 0.4 MG/DL (0.2-1.0); CALCIUM LEVEL 8.3 MG/DL (8.8-10.2); CK-MB VALUE MASS 2.5 NG/ML (<3.6); CREATININE FOR GFR 1.07 MG/DL (0.55-1.30); GLOMERULAR FILTRATION RATE 53.2 (>39); MB/CK RELATIVE INDEX 3.85 (< OR =4); POTASSIUM SERUM 4.9 MEQ/L (3.5-5.1); THYROID STIMULATING HORMONE 3.84 uIU/ML (0.358-3.740); THYROXINE (T4) 6.6 UG/DL (4.5-12.0); TOTAL PROTEIN 5.2 GM/DL (6.4-8.2); TROPONIN I 0.04 NG/ML (< 0.10)
--- NOTE | 2020-12-19 19:47 | ECGEPIP ---
[facility] - ED Test Date: 2020-12-19 Pat Name: ELA LIVINGSTON Department: Room: - Gender: Female Photo Print Specialist: HUMBERTO : 1945 Requested By: Sumit Amezcua Order Number: [id number] Reading MD: Sumit Amezcua Measurements Intervals Glady Rate: 93 P: 70 ME: 130 QRS: -4 QRSD: 100 T: 115 QT: 382 QTc: 474 Interpretive Statements Normal sinus rhythm Inferior infarct , age undetermined LEFT VENTRICULAR HYPERTROPHY w repolarlzation abnormalities IVCD Poor R wave progression - cannot rule out septal infarct age undetermined cw 12/03/[address] T wave changes Electronically Signed on 12-19-2020 19:46:59 EST by Sumit Amezcua
== END 2020-12-19 18:31 | disposition home or self-care (01) ==
LOC: M ED 15:31 → EDBD 15:31 → M ED 18:31
DX: J44.1 Chronic obstructive pulmonary disease with (acute) exacerbation (principal); R09.02 Hypoxemia; I21.4 Non-ST elevation (NSTEMI) myocardial infarction; Z53.9 Procedure and treatment not carried out, unspecified reason; I50.9 Heart failure, unspecified; E11.9 Type 2 diabetes mellitus without complications; I10 Essential (primary) hypertension; E66.9 Obesity, unspecified; F41.9 Anxiety disorder, unspecified; F32.9 Major depressive disorder, single episode, unspecified; Z87.01 Personal history of pneumonia (recurrent); F17.200 Nicotine dependence, unspecified, uncomplicated; Z79.3 Long term (current) use of hormonal contraceptives; Z79.899 Other long term (current) drug therapy; Z88.2 Allergy status to sulfonamides; Z88.1 Allergy status to other antibiotic agents; Z88.8 Allergy status to other drugs, medicaments and biological substances; Z91.02 Food additives allergy status

== ENCOUNTER 2021-02-05 07:54 | Inpatient (IN) | payer MEDICARE ==
[~2021-02-05] VITALS: Ht 157.5 cm; Wt 56.8 kg
[2021-02-05] MEDS ORDERED: PRED20TA PO (08:14)
[2021-02-05] MEDS ORDERED: methylPREDNISolone 125MG 2ML VIAL IV ONE (08:15)
[2021-02-05 08:24] LABS: BASO # 0.1 10^3/uL (0.0-0.2); BASO % 0.6 % (0.0-1.0); EOS # 0.5 10^3/uL (0.0-0.5); HEMATOCRIT 33.3 % (36.0-47.0); HEMOGLOBIN 10.6 g/dl (12.0-15.5); LYMPH % 15.1 % (24.0-44.0); MEAN CORPUSCULAR HEMOGLOBIN 29.4 pg (27.0-33.0); MEAN CORPUSCULAR HGB CONC 31.8 g/dl (32.0-36.5); MEAN CORPUSCULAR VOLUME 92.5 fl (80.0-96.0); MONO # 0.8 10^3/uL (0.0-0.8); MONO % 5.8 % (2.0-8.0); NEUTROPHILS # 9.7 10^3/uL (1.5-8.5); PLATELET COUNT, AUTOMATED 221 10^3/uL (150-450); WHITE BLOOD COUNT 13.2 10^3/uL (4.0-10.0)
[2021-02-05 08:25] LABS: VENOUS BASE EXCESS 4.9 (-2.0-2.0); VENOUS HCO3 33.4 MEQ/L (23.0-27.0); VENOUS O2 SATURATION 59.6 % (60.0-80.0); VENOUS PARTIAL PRESSURE CO2 71.6 mmHg (38.0-50.0); VENOUS PARTIAL PRESSURE O2 35.4 mmHg (30.0-50.0); VENOUS PH 7.287 UNITS (7.330-7.430); VENOUS TOTAL CO2 35.6 MEQ/L (24.0-28.0)
[2021-02-05 08:35] LABS: INR 0.89; PROTHROMBIN TIME 12.5 SECONDS (12.7-14.5)
--- NOTE | 2021-02-05 08:35 | REP ---
INDICATION: DYSPNEA/COUGH COMPARISON: 12/19/2020 TECHNIQUE: Portable AP view of the chest FINDINGS: Mediastinum and cardiac silhouette are stable. Lung ferrell again demonstrate chronic interstitial changes. Previously noted small effusions and bibasilar atelectasis appears to have resolved. Subtle area of ill-defined opacity in the right upper lung zone is again noted. Known right rib fracture unchanged. IMPRESSION: 1. Chronic appearing changes. 2. Previously identified basilar atelectasis and small right pleural effusion appear to have resolved. <Electronically signed by Dnais Greenfield > 02/05/21 0831
[2021-02-05] MEDS ORDERED: PANTOPRAZOLE 40MG TAB (PROTONIX) PO SCH (09:00)
[2021-02-05] MEDS: COMBIVENT RESPIMAT 100-20MCG INHALER 4GM INH SCH ×2 (09:15→16:54)
[2021-02-05 09:31] LABS: ALBUMIN 2.7 GM/DL (3.2-5.2); ALT/SGPT 22 U/L (12-78); BILIRUBIN,DIRECT < 0.1 MG/DL (0.0-0.2); BILIRUBIN,TOTAL 0.3 MG/DL (0.2-1.0); BLOOD UREA NITROGEN 40 MG/DL (7-18); CALCIUM LEVEL 8.7 MG/DL (8.8-10.2); CARBON DIOXIDE LEVEL 34 MEQ/L (21-32); CHLORIDE LEVEL 100 MEQ/L (98-107); CREATININE FOR GFR 0.98 MG/DL (0.55-1.30); GLOMERULAR FILTRATION RATE 58.9 (>39); GLUCOSE, FASTING 248 MG/DL (70-100); NT-PRO BNP 36295 PG/ML (<450); POTASSIUM SERUM 4.2 MEQ/L (3.5-5.1); SODIUM LEVEL 138 MEQ/L (136-145); TOTAL PROTEIN 6.1 GM/DL (6.4-8.2)
[2021-02-05] MEDS ORDERED: cefTRIAXone SOD 2 GM in D5W MINI-BAG PLUS 50 ML IV ONE (10:20)
[2021-02-05] MEDS ORDERED: hydrALAZINE 20MG/ML 1ML VIAL (J0360 PER 20MG) IV ONE (10:30)
[2021-02-05] MEDS ORDERED: GLUCAGON INJ 1MG VIAL SC PRN (11:25)
[2021-02-05] MEDS ORDERED: DEXTROSE 50% 50 ML SYRINGE IV PRN (11:25)
[2021-02-05] MEDS ORDERED: GLUCOSE 4GM CHEW TABLET PO PRN (11:25)
[2021-02-05 11:38] VITALS: BP 218/94
[2021-02-05] MEDS ORDERED: ALBUTEROL SULFATE 2.5 MG/0.5 ML INH NEB SOLN NEB PRN (12:55)
--- NOTE | 2021-02-05 13:22 | HPEPDOC ---
[facility] Medical History & Physical Date of Admission Feb 05, 2021 Date of Service: Feb 05, 2021 Attending Physician: CAM POLANCO DO History and Physical CHIEF COMPLAINT: Shortness of breath HISTORY OF PRESENT ILLNESS: Patient is a 75-year-old female presented to the emergency department this morning with a 1 day complaint of shortness of breath. Patient states that she woke up this morning and felt like she could not breathe. Patient has been struggling to breathe all morning. Patient did have a cigarette prior to coming into the emergency department but states this did not change her breathing. Patient has a history of COPD and congestive heart failure. Patient states that she can only lay on her side as this is the only way she can feel like she can catch her breath. Patient says that she is feeling slightly better with the treatments that have been given in the emergency department. Patient denies any chest pain or abdominal pain at this time. Patient does have a productive cough and the cough appears to be the same color sputum that she normally produces which is yellow. Patient denies any blood in the sputum. Patient denies any nausea or vomiting. Patient denies any swelling. Patient did not take her medication other than a prednisone this morning. PAST MEDICAL HISTORY: 1. Chronic back pain. 2. L4 compression fracture, chronic. 3. Spinal stenosis. 4. Peripheral vascular disease status post right lower extremity angioplasty with stenting 5. Stage III CKD 6. Bladder cancer 7. Severe COPD/emphysema 8. Dyslipidemia 9. Insulin-dependent diabetes mellitus 8. Hypothyroidism 11. Hypertension 12. Congestive heart failure with a EF of 4550% grade 1 diastolic dysfunction 13. Right upper lobe lung mass 14. Anxiety/depression 15. Chronic hypoxic respiratory failure requiring 4 L. PAST SURGICAL HISTORY: 1. Hysterectomy. 2. Vaginal tumor removal. 3. Bilateral leg symptoms. 4. Lung mass removed 5. Bilateral cataract surgery SOCIAL HISTORY: Patient is an everyday smoker. Denies drug or alcohol use. Lives alone. FAMILY HISTORY: Father at 76 years old with a history of stroke. Mother at 77 with a history of PA and diabetes ALLERGIES: Please see below. REVIEW OF SYSTEMS: General: Patient denies fevers HEENT: Patient denies headaches Cardiovascular: Patient denies chest pain Respiratory: Patient reports shortness of breath and cough as above GI: Patient denies abdominal pain, nausea, vomiting, diarrhea : Patient denies increased frequency or pain with urination Extremities: Patient denies swelling or pain in extremities Neurological: Patient denies numbness or tingling in legs Skin: Patient denies any new rashes or lesions. Hematologic: Patient denies any easy bruising. Lymphatic: Patient denies any lumps lumps or bumps in neck, axilla, or groin HOME MEDICATIONS: Please see below. PHYSICAL EXAMINATION: VITAL SIGNS: Temperature 96.1, pulse 102, respiratory rate 24, blood pressure 188/87, pulse oximetry 95% on 4 L via nasal cannula General: Alert and oriented female patient was laying on her side when I walked in the room. Patient did get upset during questioning as she feeling is asking to any questions. Patient did cooperate with examination. Patient was able to speak in 5-7 word sentences and did not appear to be in any acute distress. HEENT: Normocephalic, atraumatic, moist mucous membranes. Neck: No lymphadenopathy or thyromegaly Cardiac: Mildly tachycardic rate around 100-105, regular rhythm, no murmurs, normal S1, normal S2 Pulm: Inspiratory rhonchi and expiratory wheezing heard throughout the lung ferrell bilaterally Abd: Nondistended, nontender to palpation, normal bowel sounds Ext: No edema bilateral lower extremities Neuro: Patient was able to move all 4 extremities on command and reported equal sensation light touch in all 4 extremities. Skin: Skin of the head, neck, upper and lower extremities was examined did not show any evidence of rash or wounds. LABORATORY DATA: See below. IMAGING: Chest x-ray performed on 02/05/2021 is reported for chronic appearing changes. Previously identified basilar atelectasis and small right pleural effusion appear to have resolved. MICROBIOLOGY: Please see below. ASSESSMENT: 75-year-old female presented to the emergency department with acute on chronic shortness of breath most likely secondary to acute exacerbation of chronic obstructive pulmonary disease . PLAN: 1. Acute exacerbation of chronic obstructive pulmonary disease. Patient is wheezing and appears short of breath on examination. Patient was given 125 mg Solu-Medrol in the emergency department. Patient will be on 80 mg every 8 hours of Solu-Medrol at this time. Patient will be on scheduled nebulizers with as needed nebulizers. We will continue with IV antibiotics with ceftriaxone doxycycline until the patient has a procalcitonin come back. If the pr ocalcitonin is negative, doxycycline can be continued as has an anti- inflammatory effect otherwise ceftriaxone can be discontinued at that time. Patient will remain on her home oxygen. 2. Hypertensive urgency. Patient's blood pressures were very elevated in the emergency department. This may be secondary to the patient shortness of breath with the fact that the patient did not take her antihypertensive medications this morning. Patient was given her home antihypertensive medications in the emergency department and her pressure is coming down. Patient will be admitted progressive care unit as we may need IV medications for blood pressure management of her blood pressure remains elevated. Patient also has a history of heart failure and her proBNP is elevated and 1 dose of Lasix will be given at this time. 3. Heart failure with preserved ejection fraction. Patient does not appear to be in exacerbation on my clinical exam however, patient's proBNP is elevated and with the hypertensive urgency, this may be a secondary cause of this. 1 dose of Lasix will be given and patient be reevaluated tomorrow morning to see if she requires more diuresis. 4. Peripheral vascular disease. Continue patient's medications. 5. Stage III chronic kidney disease. Continue to monitor BUN and creatinine while patient is here. Avoid nephrotoxic agents. 6. Hypertension. Continue patient's home antihypertensive medications. 7. Hyperlipidemia. Continue patient's home medications. 8. Chronic back pain. Continue patient's on medications. DVT prophylaxis: Heparin CODE STATUS: Full code Disposition: Patient be admitted to the progressive care unit as patient may require IV blood pressure medications to control her hypertensive urgency. I do expect the patient to be discharged after greater than equal to 2 midnight stay. Vital Signs Vital Signs Date Time Temp Pulse Resp B/P (MAP) Pulse Ox O2 Delivery O2 Flow Rate FiO2 02/05/21 13:01 95 166/73 (104) 100 Nasal Cannula 4.0 02/05/21 08:05 96.1 24 Laboratory Data Labs 24H Laboratory Tests 2 02/05/21 08:16: Immature Granulocyte % (Auto) 0.5, Neutrophils (%) (Auto) 74.0H, Lymphocytes (%) (Auto) 15.1L, Monocytes (%) (Auto) 5.8, Eosinophils (%) (Auto) 4.0H, Basophils (%) (Auto) 0.6, Neutrophils # (Auto) 9.7H, Lymphocytes # (Auto) 2.0, Monocytes # (Auto) 0.8, Eosinophils # (Auto) 0.5, Basophils # (Auto) 0.1, Nucleated Red Blood Cells % (auto) 0.0, Prothrombin Time 12.5, Prothromb Time International Ratio 0.89, Blood Gas Bicarbonate Standard 28.0, Venous Blood pH 7.287L, Venous Blood Partial Pressure CO2 71.6H, Venous Blood Partial Pressure O2 35.4, Venous Blood Total Carbon Dioxide 35.6H, Venous Blood HCO3 33.4H, Venous Blood Oxygen Saturation 59.6L, Venous Blood Base Excess 4.9H, Anion Gap 4L, Glomerular Filtration Rate 58.9, Lactic Acid Level 1.6, Calcium Level 8.7L, Total Bilirubin 0.3, Direct Bilirubin < 0.1, Aspartate Amino Transf (AST/SGOT) 21, Alanine Aminotransferase (ALT/SGPT) 22, Alkaline Phosphatase 118H, TQ-Tfe-T-Type Natriuretic Peptide 91895U, Total Protein 6.1L, Albumin 2.7L, Albumin/Globulin Ratio 0.8L, Thyroid Stimulating Hormone (TSH) 6.150H 02/05/21 08:17: POC Troponin I (Misc) 0.05 CBC/BMP Laboratory Tests 02/05/21 08:16 Microbiology Microbiology 02/05/21 Blood Culture, Received Pending 02/05/21 Respiratory Virus Panel (PCR) ([facility]) - Final, Complete 02/05/21 Blood Culture, Received Pending Home Medications Scheduled Amlodipine Besylate (Amlodipine Besylate) 10 Mg Tablet, 10 MG PO QPM TAKES AT 1700 Atorvastatin Calcium (Atorvastatin Calcium) 40 Mg Tablet, 40 MG PO QHS Clopidogrel Bisulfate (Plavix) 75 Mg Tablet, 75 MG PO DAILY Duloxetine Hcl (Duloxetine HCl) 60 Mg Capsule.dr, 60 MG PO DAILY Fluticasone/Vilanterol (Breo Ellipta 200-25 Mcg INH) 1 Each Blst.w.dev, 1 PUFF INH DAILY Gabapentin (Gabapentin) 100 Mg Capsule, 100 MG PO QHS Hydralazine HCl (Hydralazine HCl) 50 Mg Tablet, 50 MG PO BID 0800, 1700 Insulin Detemir (Levemir) 100 Unit/1 Ml Vial, 20 UNITS SC DAILY TAKES AT 1500 Levothyroxine Sodium (Synthroid) 75 Mcg Tablet, 75 MCG PO DAILY Lisinopril (Lisinopril) 20 Mg Tablet, 20 MG PO BID 0800, 1700 Metformin HCl (Metformin HCl) 500 Mg Tablet, 500 MG PO BID 0800, 1700 Scheduled PRN Hydroxyzine HCl (Hydroxyzine HCl) 10 Mg Tablet, 10 MG PO Q8H PRN for ANXIETY Miscellaneous Medications Prednisone (Prednisone) 20 Mg Tablet Allergies Coded Allergies: Sulfa (Sulfonamide Antibiotics) (Verified Allergy, Mild, RASH, 10/07/20) bacitracin (Verified Allergy, Mild, RASH, 10/07/20) cortisone (Verified Allergy, Mild, RASH, 10/07/20) neomycin (Verified Allergy, Mild, RASH, 10/07/20) polymyxin B (Verified Allergy, Mild, RASH, 10/07/20) red dye (Unverified Allergy, Mild, rash OCCURRED ONCE WITH CAPSULE MED NO OTHER PROBLEMS WIT, 10/07/20) fluoxetine (Unverified Allergy, Unknown, 10/07/20) tramadol (Unverified Allergy, Unknown, 10/07/20) HAS HAD OXYCODONE BEFORE WITHOUT ISSUE A-FIB/CHADSVASC A-FIB History Current/History of A-Fib/PAF?: No CAM POLANCO DO Feb 05, 2021 13:22
[2021-02-05] MEDS: HumaLOG INSULIN (NovoLOG) PER UNIT SC SCH ×2 (13:25→17:15)
[2021-02-05] MEDS ORDERED: FUROSEMIDE 40MG/4ML VIAL (J1940) IV ONE (13:25)
[2021-02-05] MEDS: IPRATROPIUM 0.5MG/ALBUTEROL 2.5MG INH SOL UD 3ML (DUONEB) NEB SCH ×2 (13:50→20:00)
[2021-02-05] MEDS ORDERED: HOME MED LIST COMPLETE! XX SCH (13:55)
[2021-02-05] MEDS ORDERED: DOXYCYCLINE HYCLATE 100 MG in D5W MINI-BAG PLUS 100 ML IV SCH (14:00)
[2021-02-05] MEDS: HEPARIN SOD (PORCINE) 5000UNITS/ML 1ML VIAL/SYRINGE SC SCH ×2 (14:38→20:39)
[2021-02-05] MEDS ORDERED: hydrOXYzine 10 MG TAB PO PRN (15:00)
[2021-02-05] MEDS: methylPREDNISolone 125MG 2ML VIAL IV SCH (17:15)
[2021-02-05 17:49] VITALS: O2SAT 99
[2021-02-05 20:00] VITALS: BP 126/58
[2021-02-05] MEDS ORDERED: LEVEMIR (INSULIN DETEMIR) 1 UNITS/0.01ML SC SCH (21:00)
[2021-02-05] MEDS ORDERED: **hydrALAZINE** 50 MG TAB PO SCH (21:00)
[2021-02-05] MEDS ORDERED: GABAPENTIN 100 MG CAP PO SCH (21:00)
[2021-02-05] MEDS ORDERED: HumaLOG INSULIN (NovoLOG) PER UNIT SC SCH (21:00)
[2021-02-05] MEDS ORDERED: ATORVASTATIN 20 MG TAB PO SCH (21:00)
[2021-02-06] VITALS: BP 144/62
[2021-02-06] MEDS: methylPREDNISolone 125MG 2ML VIAL IV SCH (00:35)
--- NOTE | 2021-02-06 00:44 | ECGEPIP ---
[facility] - ED Test Date: 2021-02-05 Pat Name: ELA LIVINGSTON Department: Room: - Gender: Female Manager Etl: robin : 1945 Requested By: NALDO Lovelace Order Number: [id number] Reading MD: Mat Toussaint Measurements Intervals [place] Rate: 95 P: 64 DC: 134 QRS: 13 QRSD: 104 T: 166 QT: 366 QTc: 459 Interpretive Statements Normal sinus rhythm Left ventricular hypertrophy with repolarization abnormality ( Armando product ) Cannot rule out Inferior infarct , age undetermined POOR R WAVE PROGRESSION SIMILAR TO 12/19/20 Electronically Signed on 02-06-2021 0:44:14 EST by Mat Toussaint
[2021-02-06] MEDS: IPRATROPIUM 0.5MG/ALBUTEROL 2.5MG INH SOL UD 3ML (DUONEB) NEB SCH (00:55)
--- NOTE | 2021-02-06 02:44 | IPNPDOC ---
Text Note Date of Service The patient was seen on 02/06/21. NOTE Patient left AGAINST MEDICAL ADVICE at 0100 on 02/06. Risks of leaving were explained to the patient via nursing staff including worsening respiratory failure and . Patient understood and still wished to leave AGAINST MEDICAL ADVICE. AMA form was signed by patient. VS,Bertrambone, I+O VS, Fishbone, I+O Laboratory Tests 02/05/21 08:16 Vital Signs Date Time Temp Pulse Resp B/P (MAP) Pulse Ox O2 Delivery O2 Flow Rate FiO2 02/06/21 00:00 97.7 89 22 144/62 (89) 97 High Flow Cannula 5.0 I&O- Last 24 Hours up to 6 AM 02/06/21 06:00 Intake Total 510 ml Output Total 600 ml Balance -90 ml OTONIEL MEDLEY Feb 06, 2021 02:44
[2021-02-06] MEDS ORDERED: LEVOTHYROXINE 75MCG TABLET (0.075MG) PO SCH (06:00)
[2021-02-06] MEDS ORDERED: NICOTINE 21MG/24HR 1 EA TRANSDERMAL TD SCH (09:00)
[2021-02-06] MEDS ORDERED: DULoxetine 30MG CAPSULE (CYMBALTA) PO SCH (09:00)
[2021-02-06] MEDS ORDERED: CLOPIDOGREL 75 MG TAB PO SCH (09:00)
[2021-02-06] MEDS ORDERED: cefTRIAXone SOD 1 GM in D5W MINI-BAG PLUS 50 ML IV SCH (11:00)
== END 2021-02-06 01:10 | disposition left against medical advice (07) | DRG 191 ==
LOC: M ED 10:23 → M ED INP 11:28 → ENRESERV 16:14 → M PCU 16:43
PROVIDERS: ADMIT Family Medicine; ATTEND Family Medicine
DX: J44.1 Chronic obstructive pulmonary disease with (acute) exacerbation (principal); I13.0 Hypertensive heart and chronic kidney disease with heart failure and stage 1 through stage 4 chronic kidney disease, or unspecified chronic kidney disease; I50.32 Chronic diastolic (congestive) heart failure; J96.11 Chronic respiratory failure with hypoxia; F17.210 Nicotine dependence, cigarettes, uncomplicated; I16.0 Hypertensive urgency; N18.30 Chronic kidney disease, stage 3 unspecified; I73.9 Peripheral vascular disease, unspecified; E78.5 Hyperlipidemia, unspecified; M54.59 Other low back pain; Z85.51 Personal history of malignant neoplasm of bladder; E11.51 Type 2 diabetes mellitus with diabetic peripheral angiopathy without gangrene; E03.9 Hypothyroidism, unspecified; R91.8 Other nonspecific abnormal finding of lung field; F32.9 Major depressive disorder, single episode, unspecified; F41.9 Anxiety disorder, unspecified; Z98.41 Cataract extraction status, right eye; Z98.42 Cataract extraction status, left eye; Z79.899 Other long term (current) drug therapy; Z88.2 Allergy status to sulfonamides; Z88.8 Allergy status to other drugs, medicaments and biological substances

== ENCOUNTER 2021-02-08 08:03 | Inpatient (IN) | payer MEDICARE ==
[~2021-02-08] VITALS: Ht 157.5 cm; Wt 60.0 kg
[~2021-02-08 08:03] MED LIST changes: -CEFD1CAP8 PO; +CEFD300C41 PO; -LISI-898 PO; +LISI5TAB11 PO; -OMEP-221 PO; +OMEP40CA5 PO
[2021-02-08] MEDS ORDERED: COMBIVENT RESPIMAT 100-20MCG INHALER 4GM INH SCH (08:15)
[2021-02-08 08:48] LABS: ABG BASE EXCESS 0.7 (-2.0-2.0); ABG HCO3 26.3 MEQ/L (22.0-26.0); ABG O2 SATURATION 95.9 % (95.0-99.0); ABG PARTIAL PRESSURE CO2 46.4 mmHg (35.0-45.0); ABG PARTIAL PRESSURE O2 90.8 mmHg (75.0-100.0); ABG STANDARD HCO3 25.1 MEQ/L (22.0-26.0); ABG TOTAL CO2 27.7 MEQ/L (23.0-31.0); ABG pH (ARTERIAL) 7.371 UNITS (7.350-7.450)
[2021-02-08] MEDS ORDERED: FUROSEMIDE 20MG/2ML VIAL (J1940) IV SCH (09:00)
[2021-02-08] MEDS ORDERED: cefTRIAXone SOD 2 GM in D5W MINI-BAG PLUS 50 ML IV ONE (09:00)
[2021-02-08] MEDS ORDERED: AZITHROMYCIN INJ 500 MG, VIAL MATE ADAPTER 1 EACH in NS 250 ML IV ONE (09:00)
[2021-02-08 09:15] LABS: BASO % 0.2 % (0.0-1.0); EOS # 0.1 10^3/uL (0.0-0.5); EOS % 0.9 % (0.0-3.0); HEMATOCRIT 28.1 % (36.0-47.0); HEMOGLOBIN 8.9 g/dl (12.0-15.5); LYMPH # 0.9 10^3/uL (1.5-5.0); LYMPH % 8.1 % (24.0-44.0); MEAN CORPUSCULAR HEMOGLOBIN 29.6 pg (27.0-33.0); MEAN CORPUSCULAR HGB CONC 31.7 g/dl (32.0-36.5); MEAN CORPUSCULAR VOLUME 93.4 fl (80.0-96.0); MONO # 0.7 10^3/uL (0.0-0.8); MONO % 6.1 % (2.0-8.0); NEUTROPHILS # 8.9 10^3/uL (1.5-8.5); NEUTROPHILS % 83.9 % (36.0-66.0); PLATELET COUNT, AUTOMATED 163 10^3/uL (150-450); RED BLOOD COUNT 3.01 10^6/uL (4.00-5.40); WHITE BLOOD COUNT 10.7 10^3/uL (4.0-10.0)
[2021-02-08 10:01] LABS: ALBUMIN 2.6 GM/DL (3.2-5.2); BILIRUBIN,TOTAL 0.2 MG/DL (0.2-1.0); CALCIUM LEVEL 8.4 MG/DL (8.8-10.2); CREATININE FOR GFR 1.3 MG/DL (0.55-1.30); GLOMERULAR FILTRATION RATE 42.5 (>39); POTASSIUM SERUM 4.6 MEQ/L (3.5-5.1); TOTAL PROTEIN 5.6 GM/DL (6.4-8.2)
[2021-02-08] MEDS ORDERED: HumuLIN R (REGULAR) INSULIN (NovoLIN R) **100U/ML** PER UNIT IV ONE (10:05)
[2021-02-08] MEDS ORDERED: HumuLIN R (REGULAR) INSULIN (NovoLIN R) **100U/ML** PER UNIT SC ONE (11:35)
[2021-02-08] MEDS ORDERED: NICOTINE 14 MG/24 HR TRANSDERMAL TD ONE (11:40)
[2021-02-08] MEDS ORDERED: HOME MED LIST COMPLETE! XX SCH (12:20)
[2021-02-08] MEDS ORDERED: GLUCAGON INJ 1MG VIAL SC PRN (12:35)
[2021-02-08] MEDS ORDERED: GLUCOSE 4GM CHEW TABLET PO PRN (12:35)
[2021-02-08] MEDS ORDERED: DEXTROSE 50% 50 ML SYRINGE IV PRN (12:35)
[2021-02-08] MEDS ORDERED: hydrOXYzine 10 MG TAB PO PRN (12:40)
[2021-02-08] MEDS ORDERED: LEVEMIR (INSULIN DETEMIR) 1 UNITS/0.01ML SC ONE ×2 (13:15→21:00)
[2021-02-08 15:06] LABS: HEMOGLOBIN A1c 9.1 %
[2021-02-08] MEDS: IPRATROPIUM 0.5MG/ALBUTEROL 2.5MG INH SOL UD 3ML (DUONEB) NEB SCH ×2 (15:44→19:37)
[2021-02-08] MEDS ORDERED: methylPREDNISolone 40MG 1ML VIAL IV SCH (16:00)
[2021-02-08] MEDS ORDERED: HumaLOG INSULIN (NovoLOG) PER UNIT SC SCH (16:00)
[2021-02-08 18:42] VITALS: BP 174/80
[2021-02-08] MEDS: SYMBICORT 160/4.5MCG INHALER 6GM INH SCH (19:37)
[2021-02-08] MEDS ORDERED: ATORVASTATIN 20 MG TAB PO SCH (21:00)
[2021-02-08] MEDS ORDERED: **hydrALAZINE** 50 MG TAB PO SCH ×2 (21:00)
[2021-02-08] MEDS ORDERED: GABAPENTIN 100 MG CAP PO SCH (21:00)
[2021-02-08] MEDS ORDERED: HEPARIN SOD (PORCINE) 5000UNITS/ML 1ML VIAL/SYRINGE SC SCH (22:00)
[2021-02-09] MEDS ORDERED: LEVOTHYROXINE 75MCG TABLET (0.075MG) PO SCH (06:00)
[2021-02-09] MEDS: SYMBICORT 160/4.5MCG INHALER 6GM INH SCH (08:00)
[2021-02-09] MEDS ORDERED: CLOPIDOGREL 75 MG TAB PO SCH (09:00)
[2021-02-09] MEDS ORDERED: DULoxetine 30MG CAPSULE (CYMBALTA) PO SCH (09:00)
[2021-02-10] MEDS: IPRATROPIUM 0.5MG/ALBUTEROL 2.5MG INH SOL UD 3ML (DUONEB) NEB SCH (08:00)
[2021-02-12] MEDS ORDERED: CEFD300C41 PO (10:47)
== END 2021-02-08 19:56 | disposition left against medical advice (07) | DRG 191 ==
LOC: M ED 08:03 → EDSEX 08:03 → EDBD 08:03 → M ED INP 11:36
PROVIDERS: ADMIT Internal Medicine; ATTEND Internal Medicine
DX: J44.1 Chronic obstructive pulmonary disease with (acute) exacerbation (principal); J96.11 Chronic respiratory failure with hypoxia; I50.32 Chronic diastolic (congestive) heart failure; I13.0 Hypertensive heart and chronic kidney disease with heart failure and stage 1 through stage 4 chronic kidney disease, or unspecified chronic kidney disease; E78.5 Hyperlipidemia, unspecified; E03.9 Hypothyroidism, unspecified; F41.9 Anxiety disorder, unspecified; F32.A Depression, unspecified; E11.22 Type 2 diabetes mellitus with diabetic chronic kidney disease; N18.30 Chronic kidney disease, stage 3 unspecified; F17.200 Nicotine dependence, unspecified, uncomplicated; M48.56XD Collapsed vertebra, not elsewhere classified, lumbar region, subsequent encounter for fracture with routine healing; R91.1 Solitary pulmonary nodule; E11.51 Type 2 diabetes mellitus with diabetic peripheral angiopathy without gangrene; Z95.820 Peripheral vascular angioplasty status with implants and grafts; Z99.81 Dependence on supplemental oxygen; Z98.41 Cataract extraction status, right eye; Z98.42 Cataract extraction status, left eye; Z79.02 Long term (current) use of antithrombotics/antiplatelets; Z79.4 Long term (current) use of insulin; Z79.899 Other long term (current) drug therapy; Z88.2 Allergy status to sulfonamides; Z88.5 Allergy status to narcotic agent; Z88.8 Allergy status to other drugs, medicaments and biological substances; Z91.048 Other nonmedicinal substance allergy status

== ENCOUNTER 2021-02-10 06:03 | Inpatient (IN) | payer MEDICARE ==
[~2021-02-10] VITALS: Ht 157.5 cm; Wt 51.9 kg
[~2021-02-10 06:03] MED LIST changes: +CEFD1CAP8 PO; -CEFD300C41 PO; +LISI-898 PO; -LISI5TAB11 PO; +OMEP-221 PO; -OMEP40CA5 PO
[2021-02-10 06:49] LABS: BASO # 0.1 10^3/uL (0.0-0.2); BASO % 0.7 % (0.0-1.0); EOS # 0.5 10^3/uL (0.0-0.5); EOS % 4.9 % (0.0-3.0); HEMATOCRIT 30.4 % (36.0-47.0); HEMOGLOBIN 9.7 g/dl (12.0-15.5); LYMPH # 1.3 10^3/uL (1.5-5.0); LYMPH % 13.5 % (24.0-44.0); MEAN CORPUSCULAR HEMOGLOBIN 29.7 pg (27.0-33.0); MEAN CORPUSCULAR HGB CONC 31.9 g/dl (32.0-36.5); MONO # 0.8 10^3/uL (0.0-0.8); MONO % 8.1 % (2.0-8.0); NEUTROPHILS # 7.1 10^3/uL (1.5-8.5); NEUTROPHILS % 72.4 % (36.0-66.0); PLATELET COUNT, AUTOMATED 177 10^3/uL (150-450); RED BLOOD COUNT 3.27 10^6/uL (4.00-5.40); WHITE BLOOD COUNT 9.9 10^3/uL (4.0-10.0)
[2021-02-10 07:10] LABS: CK-MB VALUE MASS 5.5 NG/ML (<3.6); MB/CK RELATIVE INDEX 6.96 (< OR =4)
[2021-02-10 07:17] LABS: ALBUMIN 2.7 GM/DL (3.2-5.2); ALT/SGPT 25 U/L (12-78); BILIRUBIN,DIRECT < 0.1 MG/DL (0.0-0.2); BILIRUBIN,TOTAL 0.3 MG/DL (0.2-1.0); BLOOD UREA NITROGEN 38 MG/DL (7-18); CALCIUM LEVEL 8.6 MG/DL (8.8-10.2); CARBON DIOXIDE LEVEL 32 MEQ/L (21-32); CHLORIDE LEVEL 104 MEQ/L (98-107); CREATININE FOR GFR 1.08 MG/DL (0.55-1.30); FREE T4 0.86 NG/DL (0.76-1.46); GLOMERULAR FILTRATION RATE 52.7 (>39); GLUCOSE, FASTING 318 MG/DL (70-100); NT-PRO BNP 30401 PG/ML (<450); POTASSIUM SERUM 4.6 MEQ/L (3.5-5.1); SODIUM LEVEL 140 MEQ/L (136-145); TOTAL PROTEIN 5.7 GM/DL (6.4-8.2)
--- NOTE | 2021-02-10 07:54 | ECGEPIP ---
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
[2021-02-10] MEDS ORDERED: COMBIVENT RESPIMAT 100-20MCG INHALER 4GM INH STA (08:06)
[2021-02-10] MEDS ORDERED: **hydrALAZINE** 50 MG TAB PO ONE (08:50)
--- NOTE | 2021-02-10 08:57 | REPVR ---
PROCEDURE INFORMATION: Exam: XR Chest Exam date and time: 02/10/2021 6:22 AM Age: 75 years old Clinical indication: Chest wall pain; Additional info: Chest pain TECHNIQUE: Imaging protocol: XR of the chest. Views: 1 view. COMPARISON: 1. CR Chest, 1 view 02/08/2021 8:18 AM 2. CR PORTABLE CHEST X-RAY 8:17 AM FINDINGS: Lungs: There is improvement in the opacity in the left lung base seen on the most recent prior exam. There is again peripheral opacity in the right upper lung, associated with architectural distortion which appears worse than on the prior exams. There is also increase in patchy parenchymal opacity in the right lung base which is new or worse than on the recent prior exams There is mild interstitial thickening toward the lung bases, unchanged. Pleural spaces: There is probably a small amount of right pleural fluid, unchanged. No pneumothorax is seen. Heart/Mediastinum: The heart is normal in size. Vasculature: Extensive calcification of the thoracic aorta is noted. Bones/joints: A mildly displaced right 7th rib fracture is again noted. IMPRESSION: 1. Improvement in opacity in the left lung base compared to the most recent prior exam. 2. Worsening of the opacity peripherally in the right upper lobe and in the patchy right basilar opacity. Electronically signed by: Rona Segal On 02/10/2021 08:56:53 AM
[2021-02-10] MEDS ORDERED: HOME MED LIST COMPLETE! XX SCH (09:25)
[2021-02-10] MEDS ORDERED: AZITHROMYCIN INJ 500 MG, VIAL MATE ADAPTER 1 EACH in NS 250 ML IV ONE (10:25)
[2021-02-10] MEDS ORDERED: cefTRIAXone SOD 1 GM in D5W MINI-BAG PLUS 50 ML IV ONE (10:25)
[2021-02-10] MEDS ORDERED: GLUCAGON INJ 1MG VIAL SC PRN (11:00)
[2021-02-10] MEDS ORDERED: DEXTROSE 50% 50 ML SYRINGE IV PRN (11:00)
[2021-02-10] MEDS ORDERED: GLUCOSE 4GM CHEW TABLET PO PRN (11:00)
[2021-02-10] MEDS ORDERED: IPRATROPIUM 0.5MG/ALBUTEROL 2.5MG INH SOL UD 3ML (DUONEB) NEB PRN (11:05)
[2021-02-10] MEDS ORDERED: SYMBICORT 160/4.5MCG INHALER 6GM INH ONE (11:30)
[2021-02-10 11:40] VITALS: BP 180/80
[2021-02-10] MEDS ORDERED: LEVEMIR (INSULIN DETEMIR) 1 UNITS/0.01ML SC ONE (12:10)
[2021-02-10] MEDS ORDERED: hydrALAZINE 20MG/ML 1ML VIAL (J0360 PER 20MG) IV PRN (12:10)
[2021-02-10] MEDS: LEVEMIR (INSULIN DETEMIR) 1 UNITS/0.01ML SC SCH (12:15)
[2021-02-10] MEDS: CLOPIDOGREL 75 MG TAB PO SCH (12:24)
[2021-02-10] MEDS: methylPREDNISolone 125MG 2ML VIAL IV SCH (12:25)
[2021-02-10] MEDS: HumaLOG INSULIN (NovoLOG) PER UNIT SC SCH ×3 (12:25→20:01)
--- NOTE | 2021-02-10 12:35 | HPEPDOC ---
General Date of Admission Feb 10, 2021 at 10:57 Date of Service: Feb 10, 2021 Chief Complaint The patient is a 75-year-old female admitted with a reason for visit of Copd Pneumonia. History of Present Illness Mrs. Ponce is a 75 year old female with tobacco use disorder here with COPD exacerbation. Patient was recently admitted on 02/05/21 for COPD exacerbation, and left AMA on 02/06/21. She was admitted again on 02/08/21 for COPD exacerbation and left AMA on the same day. This morning, patient tells me that she could not breathe. She called for an ambulance to return to the hospital. She denies any fevers or chills. She has a cough with small sputum production. X-ray chest demonstrates improvement in the left lung opacity but worsening of the right upper lobe opacity. It was suspected the patient has a pneumonia. She was put on ceftriaxone and azithromycin in the ED. When I saw patient, she appeared to be in respiratory distress and curled up in a ball. She had some difficulty completing full sentences. She is normally on 4 L, and currently is requiring 5 L. Lung sounds are diminished and wheezy. Patient will be admitted for COPD exacerbation secondary to pneumonia. Home Medications Scheduled Amlodipine Besylate (Amlodipine Besylate) 10 Mg Tablet, 10 MG PO QPM, (Reported) TAKES AT 1700 Atorvastatin Calcium (Atorvastatin Calcium) 40 Mg Tablet, 40 MG PO QHS, (Reported) Clopidogrel Bisulfate (Plavix) 75 Mg Tablet, 75 MG PO DAILY, (Reported) Duloxetine Hcl (Duloxetine HCl) 60 Mg Capsule.dr, 60 MG PO DAILY, (Reported) Fluticasone/Vilanterol (Breo Ellipta 200-25 Mcg INH) 1 Each Blst.w.dev, 1 PUFF INH DAILY, (Reported) LAST FILLED: 08/14/20 Gabapentin (Gabapentin) 100 Mg Capsule, 100 MG PO QPM, (Reported) Hydralazine HCl (Hydralazine HCl) 50 Mg Tablet, 50 MG PO BID, (Reported) 0800, 1700 Insulin Detemir (Levemir) 100 Unit/1 Ml Vial, 20 UNITS SC DAILY, (Reported) LAST FILLED 09/20/20 Levothyroxine Sodium (Synthroid) 75 Mcg Tablet, 75 MCG PO DAILY, (Reported) Lisinopril (Lisinopril) 20 Mg Tablet, 20 MG PO BID, (Reported) 0800, 1700 Metformin HCl (Metformin HCl) 500 Mg Tablet, 500 MG PO BID, (Reported) 0800, 1700 Scheduled PRN Hydroxyzine HCl (Hydroxyzine HCl) 10 Mg Tablet, 10 MG PO Q8H PRN for ANXIETY, (Reported) Allergies Coded Allergies: Sulfa (Sulfonamide Antibiotics) (Verified Allergy, Mild, RASH, 10/07/20) bacitracin (Verified Allergy, Mild, RASH, 10/07/20) cortisone (Verified Allergy, Mild, RASH, 10/07/20) neomycin (Verified Allergy, Mild, RASH, 10/07/20) polymyxin B (Verified Allergy, Mild, RASH, 10/07/20) red dye (Unverified Allergy, Mild, rash; OCCURRED ONCE WITH CAPSULE MED NO OTHER PROBLEMS, 02/08/21) fluoxetine (Unverified Allergy, Unknown, 10/07/20) tramadol (Verified Allergy, Unknown, HAS HAD OXYCODONE BEFORE WITHOUT ISSUE, 02/08/21) Past Medical History Medical History 1. Chronic hypoxic respiratory failure on home 4 L oxygen 2. Gold stage IV COPD 3. Chronic back pain 4. L4 compression 5. Spinal stenosis 6. Peripheral vascular disease s/p right LE angioplasty with stenting 7. Stage 3 CKD 8. Bladder cancer 9. Severe COPD/emphysema 10. Dyslipidemia 11. Insulin-dependent diabetes mellitus 12. Hypothyroidism 13. Hypertension 14. CHF 15. Right upper lobe lung mass 16. Anxiety/depression 17. Solitary pulmonary nodule 18. Right middle lobe pneumonia (September 2015). Suspicion of aspiration 19. Nicotine dependence Surgical History 1. Hysterectomy 2. Vaginal tumor removal 3. Bilateral leg stents 4. Lung mass removed 5. Bilateral cataract surgery Family History Father: at the age of 7676 years old, history of stroke Mother: at the age of 7777 years old, history of [place] and diabetes Social History * Smoker: current smoker Alcohol: Denies Drugs: denies A-FIB/CHADSVASC A-FIB History Current/History of A-Fib/PAF?: No Review of Systems Constitutional: Denies: Chills, Fever Eyes: Denies: Vision change ENT: Denies: Sore Throat Skin: Denies: Rash Pulmonary: Reports: Dyspnea, Cough (Little sputum) Cardiovascular: Denies: Chest Pain Gastrointestinal: Denies: Nausea, Abdominal Pain, Diarrhea Genitourinary: Reports: Dysuria Hematologic: Denies: Bruising Neurological: Denies: Numbness Psych: Reports: Anxiety, Depression Physical Examination General Exam: Positive: Alert, Cooperative, Mild Distress Eye Exam: Negative: Sclera icteric ENT Exam: Positive: Atraumatic Neck Exam: Positive: Supple Chest Exam: Positive: Rhonchi, Wheezing, Diminished Heart Exam: Positive: Rate Normal, Regular Rhythm Abdomen Exam: Positive: Normal bowel sounds, Soft; Negative: Tenderness Extremity Exam: Negative: Edema Neuro Exam: Positive: Cranial Nerves 3-12 NL Psych Exam: Positive: Mental status NL, Mood NL Vital Signs Vital Signs Date Time Temp Pulse Resp B/P (MAP) Pulse Ox O2 Delivery O2 Flow Rate FiO2 02/10/21 11:27 98.0 96 20 182/87 (118) 90 Nasal Cannula 5.0 Laboratory Data Labs 24H Laboratory Tests 2 02/10/21 06:25: Immature Granulocyte % (Auto) 0.4, Neutrophils (%) (Auto) 72.4H, Lymphocytes (%) (Auto) 13.5L, Monocytes (%) (Auto) 8.1H, Eosinophils (%) (Auto) 4.9H, Basophils (%) (Auto) 0.7, Neutrophils # (Auto) 7.1, Lymphocytes # (Auto) 1.3L, Monocytes # (Auto) 0.8, Eosinophils # (Auto) 0.5, Basophils # (Auto) 0.1, Nucleated Red Blood Cells % (auto) 0.0, Anion Gap 4L, Glomerular Filtration Rate 52.7, Calcium Level 8.6L, Total Bilirubin 0.3, Direct Bilirubin < 0.1, Aspartate Amino Transf (AST/SGOT) 19, Alanine Aminotransferase (ALT/SGPT) 25, Alkaline Phosphatase 90, Total Creatine Kinase 79, Creatine Kinase MB 5.5H, Creatine Kinase MB Relative Index 6.96H, Troponin I High Sensitivity 82.0H, CS-Oma-U-Type Natriuretic Peptide 52339J, Total Protein 5.7L, Albumin 2.7L, Albumin/Globulin Ratio 0.9L, Procalcitonin 0.10, Thyroid Stimulating Hormone (TSH) 10.700H, Free Thyroxine 0.86 02/10/21 07:24: POC Troponin I (Misc) 0.05 02/10/21 07:52: Troponin I High Sensitivity 80.0H 02/10/21 09:42: Troponin I High Sensitivity 80.0H 02/10/21 11:55: CBC/BMP Laboratory Tests 02/10/21 06:25 Microbiology Microbiology 02/10/21 Respiratory Virus Panel (PCR) ([facility]) - Final, Complete Assessment/Plan Mrs. Ponce is a 75 year old female with tobacco use disorder here with COPD exacerbation. Patient was recently admitted on 02/05/21 for COPD exacerbation, and left AMA on 02/06/21. She was admitted again on 02/08/21 for COPD exacerbation and left AMA on the same day. Today, patient told ED provider that she is going to stay for pneumonia. She asked me to call her son to take care of her cat as she does not know how long she will be here. I spoke with her son who can take care of her cat, but she wishes that she does not leave AMA so that she could get better. We will treat the pneumonia with ceftriaxone and azithromycin. We will treat the COPD exacerbation with breathing treatments and Solu-Medrol. Plan / VTE VTE Prophylaxis Ordered?: Yes Plan Plan 1. Acute exacerbation of COPD On examination patient was wheezy and had poor airflow Secondary to pneumonia Start breathing treatments and Solu-Medrol Chronically on 4 L. Currently requiring 5 L 2. Community-acquired pneumonia Chest x-ray demonstrates opacity in the left lung base and right upper lobe Empirically treat with ceftriaxone and azithromycin day 1 Order for sputum culture, urinary Legionella, and urinary strep 3. Tobacco use disorder Nicotine patch ordered Smoking cessation ordered 4. Hypertension Continue amlodipine, p.o. hydralazine, and lisinopril As needed IV hydralazine for systolic blood pressures greater than 160 5. Diabetes mellitus Carbohydrate consistent diet Continue sliding scale Continue Levemir 6. Hypothyroidism Continue levothyroxine 7. DVT prophylaxis Lovenox Disposition: Pending clinical improvement and improvement in oxygen requirements COLTON LEIVA DO Feb 10, 2021 12:35
[2021-02-10 12:54] LABS: INR 0.96; PROTHROMBIN TIME 13.2 SECONDS (12.7-14.5)
[2021-02-10 12:55] LABS: PARTIAL THROMBOPLASTIN TIME 27.2 SECONDS (25.9-37.0)
[2021-02-10] MEDS: NICOTINE 21MG/24HR 1 EA TRANSDERMAL TD SCH (13:05)
[2021-02-10 16:00] VITALS: BP 118/58
[2021-02-10] MEDS: **hydrALAZINE** 50 MG TAB PO SCH (18:02)
[2021-02-10 20:00] VITALS: BP 118/58
[2021-02-10] MEDS: ATORVASTATIN 20 MG TAB PO SCH (20:00)
[2021-02-10] MEDS: hydrOXYzine 10 MG TAB PO PRN (20:01)
[2021-02-10] MEDS: GABAPENTIN 100 MG CAP PO SCH (20:01)
[2021-02-10] MEDS: SYMBICORT 160/4.5MCG INHALER 6GM INH SCH (20:13)
[2021-02-11] VITALS (7 sets, daily range): BP systolic 117–172; BP diastolic 59–80
[2021-02-11 05:55] LABS: HEMATOCRIT 28.8 % (36.0-47.0); HEMOGLOBIN 9.1 g/dl (12.0-15.5); MEAN CORPUSCULAR HEMOGLOBIN 29.3 pg (27.0-33.0); MEAN CORPUSCULAR HGB CONC 31.6 g/dl (32.0-36.5); MEAN CORPUSCULAR VOLUME 92.6 fl (80.0-96.0); PLATELET COUNT, AUTOMATED 184 10^3/uL (150-450); RED BLOOD COUNT 3.11 10^6/uL (4.00-5.40); WHITE BLOOD COUNT 9.2 10^3/uL (4.0-10.0)
[2021-02-11] MEDS: LEVOTHYROXINE 75MCG TABLET (0.075MG) PO SCH (06:12)
[2021-02-11 06:20] LABS: CALCIUM LEVEL 8.4 MG/DL (8.8-10.2); CREATININE FOR GFR 1.02 MG/DL (0.55-1.30); GLOMERULAR FILTRATION RATE 56.2 (>39); POTASSIUM SERUM 3.9 MEQ/L (3.5-5.1)
[2021-02-11] MEDS: HumaLOG INSULIN (NovoLOG) PER UNIT SC SCH ×4 (07:30→20:08)
[2021-02-11] MEDS: LEVEMIR (INSULIN DETEMIR) 1 UNITS/0.01ML SC SCH (07:36)
[2021-02-11] MEDS: SYMBICORT 160/4.5MCG INHALER 6GM INH SCH ×2 (08:00→19:45)
[2021-02-11] MEDS: DULoxetine 30MG CAPSULE (CYMBALTA) PO SCH (08:05)
[2021-02-11] MEDS: **hydrALAZINE** 50 MG TAB PO SCH ×2 (08:05→18:09)
[2021-02-11] MEDS: CLOPIDOGREL 75 MG TAB PO SCH (08:06)
[2021-02-11] MEDS: NICOTINE 21MG/24HR 1 EA TRANSDERMAL TD SCH (08:06)
[2021-02-11] MEDS: ENOXAPARIN 40MG/0.4ML SYRINGE (J1650 PER 10MG) SC SCH (08:07)
[2021-02-11] MEDS: guaiFENesin ER 600 MG TAB PO SCH ×2 (10:29→20:08)
[2021-02-11] MEDS: cefTRIAXone SOD 1 GM in D5W MINI-BAG PLUS 50 ML IV SCH (10:29)
--- NOTE | 2021-02-11 11:03 | IPNPDOC ---
Subjective Date Seen The patient was seen on 02/11/21. Subjective Chief Complaint/HPI Mrs. Ponce is a 75 year old female with tobacco use disorder here with COPD exacerbation. This morning, she was not feeling well. She felt like she had chest congestion. Still has dyspnea. Denies chest pain. Will order for chest PT, acapella, and guaifenesin Objective Physical Examination General Exam: Positive: Alert, Cooperative Eye Exam: Negative: Sclera icteric ENT Exam: Positive: Atraumatic Neck Exam: Positive: Supple Chest Exam: Positive: Rhonchi, Diminished Heart Exam: Positive: Rate Normal, Regular Rhythm Abdomen Exam: Positive: Normal bowel sounds, Soft; Negative: Tenderness Extremity Exam: Negative: Edema Neuro Exam: Positive: Cranial Nerves 3-12 NL Psych Exam: Positive: Mental status NL, Mood NL Assessment /Plan Assessment Mrs. Ponce is a 75 year old female with tobacco use disorder here with COPD exacerbation. Patient was recently admitted on 02/05/21 for COPD exacerbation, and left AMA on 02/06/21. She was admitted again on 02/08/21 for COPD exacerbation and left AMA on the same day. Today, patient told ED provider that she is going to stay for pneumonia. She asked me to call her son to take care of her cat as she does not know how long she will be here. I spoke with her son who can take care of her cat, but she wishes that she does not leave AMA so that she could get better. We will treat the pneumonia with ceftriaxone and azithromycin. We will treat the COPD exacerbation with breathing treatments and Solu-Medrol. Will also start chest PT, acapella, and guaifenesin. Plan/VTE VTE Prophylaxis Ordered?: Yes Plan 1. Acute exacerbation of COPD On examination patient was wheezy and had poor airflow Secondary to pneumonia Start breathing treatments and Solu-Medrol Chronically on 4 L. -Added on chest PT, guaifenesin, and acapella 2. Community-acquired pneumonia Chest x-ray demonstrates opacity in the left lung base and right upper lobe Empirically treat with ceftriaxone and azithromycin day 2 Order for sputum culture, urinary Legionella, and urinary strep 3. Tobacco use disorder Nicotine patch ordered Smoking cessation ordered 4. Hypertension Continue amlodipine, p.o. hydralazine, and lisinopril As needed IV hydralazine for systolic blood pressures greater than 160 5. Diabetes mellitus Carbohydrate consistent diet Continue sliding scale Continue Levemir 6. Hypothyroidism Continue levothyroxine 7. DVT prophylaxis Lovenox Disposition: Pending clinical improvement VS, I&O, 24H, William Vital Signs/I&O Vital Signs Date Time Temp Pulse Resp B/P (MAP) Pulse Ox O2 Delivery O2 Flow Rate FiO2 02/11/21 08:05 172/80 02/11/21 08:00 3.0 02/11/21 08:00 97.2 85 18 98 Nasal Cannula I&O- Last 24 Hours up to 6 AM 02/11/21 05:59 Intake Total 420 ml Output Total 0 ml Balance 420 ml Laboratory Data 24H LABS Laboratory Tests 2 02/10/21 11:55: Bedside Glucose (Misc Panel) 384H 02/10/21 12:17: Prothrombin Time 13.2, Prothromb Time International Ratio 0.96, Activated Partial Thromboplast Time 27.2 02/10/21 16:30: Bedside Glucose (Misc Panel) 104 02/10/21 19:47: Bedside Glucose (Misc Panel) 142H 02/11/21 05:32: Nucleated Red Blood Cells % (auto) 0.0, Anion Gap 5L, Glomerular Filtration Rate 56.2, Calcium Level 8.4L CBC/BMP Laboratory Tests 02/11/21 05:32 Microbiology Microbiology 02/10/21 Blood Culture, Received Pending 02/10/21 Blood Culture, Received Pending 02/10/21 Respiratory Virus Panel (PCR) ([facility]) - Final, Complete COLTON LEIVA DO Feb 11, 2021 11:03
[2021-02-11] MEDS: AZITHROMYCIN INJ 500 MG, VIAL MATE ADAPTER 1 EACH in NS 250 ML IV SCH (12:57)
[2021-02-11] MEDS: methylPREDNISolone 125MG 2ML VIAL IV SCH ×2 (12:57)
[2021-02-11] MEDS: hydrOXYzine 10 MG TAB PO PRN (15:58)
[2021-02-11] MEDS ORDERED: LORazepam 1 MG TAB PO PRN (18:25)
[2021-02-11] MEDS: GABAPENTIN 100 MG CAP PO SCH (20:08)
[2021-02-11] MEDS: ATORVASTATIN 20 MG TAB PO SCH (20:09)
[2021-02-12] VITALS: BP 140/69
[2021-02-12] MEDS: methylPREDNISolone 125MG 2ML VIAL IV SCH ×2 (00:13→12:11)
[2021-02-12] MEDS ORDERED: RAMELTEON 8 MG TAB (ROZEREM) PO PRN (01:25)
[2021-02-12] MEDS ORDERED: hydrOXYzine 50 MG TAB PO ONE (01:25)
[2021-02-12] MEDS ORDERED: hydrOXYzine 25 MG TAB PO ONE (01:45)
[2021-02-12 04:00] VITALS: BP 116/68
[2021-02-12] MEDS: LEVOTHYROXINE 75MCG TABLET (0.075MG) PO SCH (05:20)
[2021-02-12 05:42] LABS: HEMATOCRIT 29.2 % (36.0-47.0); HEMOGLOBIN 9.4 g/dl (12.0-15.5); MEAN CORPUSCULAR HEMOGLOBIN 29.7 pg (27.0-33.0); MEAN CORPUSCULAR HGB CONC 32.2 g/dl (32.0-36.5); MEAN CORPUSCULAR VOLUME 92.4 fl (80.0-96.0); PLATELET COUNT, AUTOMATED 180 10^3/uL (150-450); RED BLOOD COUNT 3.16 10^6/uL (4.00-5.40); WHITE BLOOD COUNT 10.7 10^3/uL (4.0-10.0)
[2021-02-12 06:14] LABS: CALCIUM LEVEL 8.2 MG/DL (8.8-10.2); CREATININE FOR GFR 1.3 MG/DL (0.55-1.30); GLOMERULAR FILTRATION RATE 42.5 (>39); POTASSIUM SERUM 4.8 MEQ/L (3.5-5.1)
[2021-02-12] MEDS: SYMBICORT 160/4.5MCG INHALER 6GM INH SCH (07:12)
[2021-02-12 08:00] VITALS: BP 141/66
[2021-02-12] MEDS: cefTRIAXone SOD 1 GM in D5W MINI-BAG PLUS 50 ML IV SCH (09:26)
[2021-02-12] MEDS: guaiFENesin ER 600 MG TAB PO SCH (09:27)
[2021-02-12] MEDS: HumaLOG INSULIN (NovoLOG) PER UNIT SC SCH ×2 (09:27→12:21)
[2021-02-12] MEDS: LEVEMIR (INSULIN DETEMIR) 1 UNITS/0.01ML SC SCH (09:27)
[2021-02-12] MEDS: CLOPIDOGREL 75 MG TAB PO SCH (09:27)
[2021-02-12] MEDS: ENOXAPARIN 40MG/0.4ML SYRINGE (J1650 PER 10MG) SC SCH (09:27)
[2021-02-12] MEDS: DULoxetine 30MG CAPSULE (CYMBALTA) PO SCH (09:28)
[2021-02-12] MEDS: **hydrALAZINE** 50 MG TAB PO SCH (09:28)
[2021-02-12] MEDS: NICOTINE 21MG/24HR 1 EA TRANSDERMAL TD SCH (09:29)
[2021-02-12] MEDS ORDERED: CEFD1CAP8 PO (10:47)
[2021-02-12] MEDS ORDERED: PRED10TA2 PO (10:47)
[2021-02-12] MEDS: AZITHROMYCIN INJ 500 MG, VIAL MATE ADAPTER 1 EACH in NS 250 ML IV SCH (12:11)
--- NOTE | 2021-02-12 23:21 | DS.PDOC ---
Discharge Summary General Date of Admission Feb 10, 2021 at 10:57 Date of Discharge Feb 12, 2021 Discharge Summary PROCEDURES PERFORMED DURING STAY: None ADMITTING DIAGNOSES: 1. Acute COPD exacerbation 2. Community acquired pneumonia 3. Tobacco use disorder 4. Hypertension 5. Diabetes mellitus type 2 6. Hypothyroidism DISCHARGE DIAGNOSES: 1. Acute COPD exacerbation 2. Community acquired pneumonia 3. Tobacco use disorder 4. Hypertension 5. Diabetes mellitus type 2 6. Hypothyroidism COMPLICATIONS/CHIEF COMPLAINT: Copd Pneumonia. HISTORY OF PRESENT ILLNESS: Mrs. Ponce is a 75 year old female with tobacco use disorder here with COPD exacerbation. Patient was recently admitted on 02/05/21 for COPD exacerbation, and left AMA on 02/06/21. She was admitted again on 02/08/21 for COPD exacerbation and left AMA on the same day. This morning, patient tells me that she could not breathe. She called for an ambulance to return to the hospital. She denies any fevers or chills. She has a cough with small sputum production. X-ray chest demonstrates improvement in the left lung opacity but worsening of the right upper lobe opacity. It was suspected the patient has a pneumonia. She was put on ceftriaxone and azithromycin in the ED. When I saw patient, she appeared to be in respiratory distress and curled up in a ball. She had some difficulty completing full sentences. She is normally on 4 L, and currently is requiring 5 L. Lung sounds are diminished and wheezy. Patient will be admitted for COPD exacerbation secondary to pneumonia. HOSPITAL COURSE: Patient did well during hospitalization. She was put on Solu- Medrol, ceftriaxone, azithromycin and breathing treatments. Her oxygen req uirements weaned down from 5L to 4L which is her baseline. Today, patient feel well. She denies any chest pain or dyspnea. She requested home health nurse, but I explained that the two agencies cannot take her back as a patient. Otherwise, she feels ready for home. She was discharged with cefdinir for 5 more days and prednisone taper. She already had completed 3 days of azithromycin. DISCHARGE MEDICATIONS: Please see below. ALLERGIES: Please see below. PHYSICAL EXAMINATION ON DISCHARGE: VITAL SIGNS: Please see below. GENERAL: Comfortable, in no apparent distress. HEENT: EOMI, sclera clear. NECK: Supple. RESPIRATORY: Diminished, coarse. CARDIOVASCULAR: Regular rate and rhythm. ABDOMEN: Soft, nontender, no guarding or rebound tenderness. Normal bowel sounds. MUSCLE SKELETAL: No pitting edema. NEUROLOGICAL: CN 312 grossly intact PSYCHOLOGICAL: Normal mood and affect. LABORATORY DATA: Please see below. IMAGING: Radiologist interpretation CXR 1. Improvement in opacity in the left lung base compared to the most recent prior exam. 2. Worsening of the opacity peripherally in the right upper lobe and in the patchy right basilar opacity. PROGNOSIS: Guarded as she is very non-compliant with medication and treatment. She is chronically on oxygen and smokes. We have educated her not to smoke and use oxygen at the same time. ACTIVITY: As tolerated. DIET: Carbohydrate consistent diet DISCHARGE PLAN: Patient to return home and complete prednisone taper and antibiotics as described. I recommended her to not take lisinopril until Friday. DISPOSITION: , Self-Care. DISCHARGE INSTRUCTIONS: 1. Follow up with PCP within 1 week ITEMS TO FOLLOWUP ON ON OUTPATIENT: 1. Renal function DISCHARGE CONDITION: Stable Total time spent on discharge planning, discharge summary, and medication reconciliation: 45 minutes Vital Signs/I&Os Vital Signs Date Time Temp Pulse Resp B/P (MAP) Pulse Ox O2 Delivery O2 Flow Rate FiO2 02/12/21 12:00 4.0 02/12/21 08:00 97.7 95 20 141/66 (91) 88 Room Air I&O- Last 24 Hours up to 6 AM 02/12/21 06:00 Intake Total 1680 ml Output Total 1950 ml Balance -270 ml Laboratory Data Labs 24H Laboratory Tests 2 02/12/21 05:18: Nucleated Red Blood Cells % (auto) 0.0, Anion Gap 9, Glomerular Filtration Rate 42.5, Calcium Level 8.2L 02/12/21 12:15: Bedside Glucose (Misc Panel) 376H CBC/BMP Laboratory Tests 02/12/21 05:18 FSBS Laboratory Tests Test 02/12/21 12:15 Range/Units Bedside Glucose (Misc Panel) 376 83-110 MG/DL Microbiology Microbiology 02/10/21 Blood Culture - Preliminary, Resulted No Growth after 48 hours. All Specime... 02/10/21 Blood Culture - Preliminary, Resulted No Growth after 48 hours. All Specime... 02/10/21 Respiratory Virus Panel (PCR) ([facility]) - Final, Complete Discharge Medications Scheduled Amlodipine Besylate (Amlodipine Besylate) 10 Mg Tablet, 10 MG PO QPM, (Reported) TAKES AT 1700 Atorvastatin Calcium (Atorvastatin Calcium) 40 Mg Tablet, 40 MG PO QHS, (Reporte d) Cefdinir (Cefdinir) 300 Mg Capsule, 300 MG PO BID Clopidogrel Bisulfate (Plavix) 75 Mg Tablet, 75 MG PO DAILY, (Reported) Duloxetine Hcl (Duloxetine HCl) 60 Mg Capsule.dr, 60 MG PO DAILY, (Reported) Fluticasone/Vilanterol (Breo Ellipta 200-25 Mcg INH) 1 Each Blst.w.dev, 1 PUFF INH DAILY, (Reported) LAST FILLED: 08/14/20 Gabapentin (Gabapentin) 100 Mg Capsule, 100 MG PO QPM, (Reported) Hydralazine HCl (Hydralazine HCl) 50 Mg Tablet, 50 MG PO BID, (Reported) 0800, 1700 Insulin Detemir (Levemir) 100 Unit/1 Ml Vial, 20 UNITS SC DAILY, (Reported) LAST FILLED 09/20/20 Levothyroxine Sodium (Synthroid) 75 Mcg Tablet, 75 MCG PO DAILY, (Reported) Lisinopril (Lisinopril) 20 Mg Tablet, 20 MG PO BID, (Reported) 0800, 1700 Metformin HCl (Metformin HCl) 500 Mg Tablet, 500 MG PO BID, (Reported) 0800, 1700 Prednisone (Prednisone) 10 Mg Tablet, 10 MG PO TAPER Take 4 tabs daily x 3 days, then 3 tabs daily x 3 days, then 2 tabs daily x 3 days, then 1 tab daily x 3 days and stop Scheduled PRN Hydroxyzine HCl (Hydroxyzine HCl) 10 Mg Tablet, 10 MG PO Q8H PRN for ANXIETY, (Reported) Allergies Coded Allergies: Sulfa (Sulfonamide Antibiotics) (Verified Allergy, Mild, RASH, 10/07/20) bacitracin (Verified Allergy, Mild, RASH, 10/07/20) cortisone (Verified Allergy, Mild, RASH, 10/07/20) neomycin (Verified Allergy, Mild, RASH, 10/07/20) polymyxin B (Verified Allergy, Mild, RASH, 10/07/20) red dye (Unverified Allergy, Mild, rash; OCCURRED ONCE WITH CAPSULE MED NO OTHER PROBLEMS, 02/08/21) fluoxetine (Unverified Allergy, Unknown, 8/28/21) tramadol (Verified Allergy, Unknown, HAS HAD OXYCODONE BEFORE WITHOUT ISSUE, 02/08/21) COLTON LEIVA DO Feb 12, 2021 23:21
== END 2021-02-12 15:13 | disposition home or self-care (01) | DRG 190 ==
LOC: M ED 06:03 → M ED INP 10:57 → ENRESERV 11:16 → M PCU 11:36
PROVIDERS: ADMIT Internal Medicine; ATTEND Internal Medicine
DX: J44.0 Chronic obstructive pulmonary disease with (acute) lower respiratory infection (principal); J18.9 Pneumonia, unspecified organism; J96.11 Chronic respiratory failure with hypoxia; I13.0 Hypertensive heart and chronic kidney disease with heart failure and stage 1 through stage 4 chronic kidney disease, or unspecified chronic kidney disease; J44.1 Chronic obstructive pulmonary disease with (acute) exacerbation; E11.51 Type 2 diabetes mellitus with diabetic peripheral angiopathy without gangrene; N18.30 Chronic kidney disease, stage 3 unspecified; E11.22 Type 2 diabetes mellitus with diabetic chronic kidney disease; E78.5 Hyperlipidemia, unspecified; E03.9 Hypothyroidism, unspecified; I50.9 Heart failure, unspecified; R91.8 Other nonspecific abnormal finding of lung field; F17.200 Nicotine dependence, unspecified, uncomplicated; Z95.820 Peripheral vascular angioplasty status with implants and grafts; Z98.41 Cataract extraction status, right eye; Z98.42 Cataract extraction status, left eye; Z79.02 Long term (current) use of antithrombotics/antiplatelets; Z79.4 Long term (current) use of insulin; Z79.899 Other long term (current) drug therapy; Z88.2 Allergy status to sulfonamides; Z88.5 Allergy status to narcotic agent; Z88.8 Allergy status to other drugs, medicaments and biological substances; Z91.048 Other nonmedicinal substance allergy status; Z99.81 Dependence on supplemental oxygen; Z91.14 Patient's other noncompliance with medication regimen; Z91.19 Patient's noncompliance with other medical treatment and regimen

== ENCOUNTER 2021-02-22 15:46 | Observation (INO) | payer MEDICARE ==
[~2021-02-22] VITALS: Ht 157.5 cm; Wt 55.7 kg
[~2021-02-22 15:46] MED LIST changes: -CEFD1CAP8 PO; +CEFD300C41 PO; -LISI-898 PO; +LISI5TAB11 PO; -OMEP-221 PO; +OMEP40CA5 PO
[2021-02-22 17:22] LABS: BASO % 0.2 % (0.0-1.0); EOS % 0.2 % (0.0-3.0); HEMOGLOBIN 10.5 g/dl (12.0-15.5); LYMPH # 0.5 10^3/uL (1.5-5.0); LYMPH % 4.4 % (24.0-44.0); MEAN CORPUSCULAR HEMOGLOBIN 29.3 pg (27.0-33.0); MEAN CORPUSCULAR HGB CONC 31.8 g/dl (32.0-36.5); MEAN CORPUSCULAR VOLUME 92.2 fl (80.0-96.0); MONO # 0.2 10^3/uL (0.0-0.8); MONO % 1.6 % (2.0-8.0); NEUTROPHILS # 10.7 10^3/uL (1.5-8.5); PLATELET COUNT, AUTOMATED 161 10^3/uL (150-450); RED BLOOD COUNT 3.58 10^6/uL (4.00-5.40); WHITE BLOOD COUNT 11.5 10^3/uL (4.0-10.0)
[2021-02-22 17:53] LABS: ALBUMIN 2.5 GM/DL (3.2-5.2); BILIRUBIN,DIRECT 0.1 MG/DL (0.0-0.2); BILIRUBIN,TOTAL 0.3 MG/DL (0.2-1.0); CALCIUM LEVEL 8.5 MG/DL (8.8-10.2); CREATININE FOR GFR 1.15 MG/DL (0.55-1.30); POTASSIUM SERUM 5.1 MEQ/L (3.5-5.1); THYROID STIMULATING HORMONE 3.7 uIU/ML (0.358-3.740); TOTAL PROTEIN 5.3 GM/DL (6.4-8.2)
[2021-02-22] MEDS ORDERED: dexameTHASONE 4 MG/ML 1ML VIAL (J1100 PER 1MG) IV ONE (19:00)
[2021-02-22] MEDS ORDERED: ALBUTEROL 90 MCG/ACT 8GM HFA INHALER INH ONE (19:00)
[2021-02-22] MEDS ORDERED: GLUCOSE 4GM CHEW TABLET PO PRN (19:40)
[2021-02-22] MEDS ORDERED: GLUCAGON INJ 1MG VIAL SC PRN (19:40)
[2021-02-22] MEDS ORDERED: guaiFENesin ER 600 MG TAB PO PRN (19:40)
[2021-02-22] MEDS ORDERED: DEXTROSE 50% 50 ML SYRINGE IV PRN (19:40)
[2021-02-22] MEDS ORDERED: ACETAMINOPHEN TAB 650MG DOSE (2X325MG) PO PRN (19:40)
[2021-02-22] MEDS: IPRATROPIUM 0.5MG/ALBUTEROL 2.5MG INH SOL UD 3ML (DUONEB) NEB SCH (20:00)
[2021-02-22] MEDS ORDERED: predniSONE 20 MG TAB PO SCH (20:00)
[2021-02-22] MEDS ORDERED: HumaLOG INSULIN (NovoLOG) PER UNIT SC SCH (21:00)
[2021-02-22 21:37] LABS: MAGNESIUM LEVEL 1.7 MG/DL (1.8-2.4)
[2021-02-22] MEDS ORDERED: AZITHROMYCIN 250MG TABLET PO ONE (22:00)
[2021-02-22] MEDS ORDERED: PATIENT COMMENT (22:08)
[2021-02-22] MEDS ORDERED: PRED10TA2 PO (22:08)
[2021-02-22] MEDS ORDERED: HOME MED LIST COMPLETE! XX SCH (22:10)
[2021-02-22] MEDS ORDERED: hydrOXYzine 10 MG TAB PO PRN (22:20)
[2021-02-22 22:22] LABS: VENOUS BASE EXCESS -2.3 (-2.0-2.0); VENOUS O2 SATURATION 83.3 % (60.0-80.0); VENOUS PARTIAL PRESSURE CO2 48.2 mmHg (38.0-50.0); VENOUS PARTIAL PRESSURE O2 50.9 mmHg (30.0-50.0); VENOUS PH 7.315 UNITS (7.330-7.430); VENOUS STANDARD HCO3 22.3 MEQ/L; VENOUS TOTAL CO2 25.5 MEQ/L (24.0-28.0)
[2021-02-22] MEDS ORDERED: diphenhydrAMINE 12.5MG/5ML ELIXIR UDC PO PRN (22:40)
[2021-02-22] MEDS: **hydrALAZINE** 50 MG TAB PO SCH (23:00)
[2021-02-22] MEDS: MAG SULF 1GM/100ML (MAG RUN) 1 GM in IV 1 EA IV SCH (23:49)
[2021-02-23] MEDS ORDERED: SODIUM CHLORIDE 0.9% 1000ML IV ONE
[2021-02-23] MEDS: MAG SULF 1GM/100ML (MAG RUN) 1 GM in IV 1 EA IV SCH (01:06)
[2021-02-23] MEDS: IPRATROPIUM 0.5MG/ALBUTEROL 2.5MG INH SOL UD 3ML (DUONEB) NEB SCH ×2 (02:00→08:00)
[2021-02-23 02:50] VITALS: BP 135/62
[2021-02-23 03:54] VITALS: O2SAT 98
[2021-02-23] MEDS: SYMBICORT 160/4.5MCG INHALER 6GM INH SCH ×2 (03:57→08:00)
[2021-02-23 05:34] VITALS: BP 133/60
[2021-02-23] MEDS ORDERED: LEVOTHYROXINE 75MCG TABLET (0.075MG) PO SCH (06:00)
[2021-02-23] MEDS ORDERED: HumaLOG INSULIN (NovoLOG) PER UNIT SC SCH (07:30)
[2021-02-23 08:25] LABS: HEMATOCRIT 26.3 % (36.0-47.0); MEAN CORPUSCULAR HEMOGLOBIN 29.8 pg (27.0-33.0); MEAN CORPUSCULAR HGB CONC 32.3 g/dl (32.0-36.5); MEAN CORPUSCULAR VOLUME 92.3 fl (80.0-96.0); PLATELET COUNT, AUTOMATED 149 10^3/uL (150-450); RED BLOOD COUNT 2.85 10^6/uL (4.00-5.40); WHITE BLOOD COUNT 8.2 10^3/uL (4.0-10.0)
[2021-02-23 08:28] LABS: HEMOGLOBIN 8.5 g/dl (12.0-15.5)
[2021-02-23 08:36] LABS: CALCIUM LEVEL 8.7 MG/DL (8.8-10.2); CREATININE FOR GFR 1.38 MG/DL (0.55-1.30); GLOMERULAR FILTRATION RATE 39.7 (>39); MAGNESIUM LEVEL 2.5 MG/DL (1.8-2.4); POTASSIUM SERUM 5.6 MEQ/L (3.5-5.1)
[2021-02-23] MEDS ORDERED: HumaLOG INSULIN (NovoLOG) PER UNIT SC ONE (09:00)
[2021-02-23] MEDS ORDERED: predniSONE 20 MG TAB PO SCH (09:00)
[2021-02-23] MEDS ORDERED: DULoxetine 30MG CAPSULE (CYMBALTA) PO SCH (09:00)
[2021-02-23] MEDS ORDERED: CLOPIDOGREL 75 MG TAB PO SCH (09:00)
[2021-02-23] MEDS: ENOXAPARIN 40MG/0.4ML SYRINGE (J1650 PER 10MG) SC SCH ×2 (09:00→09:25)
[2021-02-23] MEDS ORDERED: LEVEMIR (INSULIN DETEMIR) 1 UNITS/0.01ML SC SCH (09:00)
[2021-02-23 09:27] VITALS: BP 140/61
[2021-02-23] MEDS: **hydrALAZINE** 50 MG TAB PO SCH (09:27)
[2021-02-23] MEDS ORDERED: INSUDET SC (11:09)
[2021-02-23] MEDS ORDERED: ALBU83IN NEB (11:09)
[2021-02-23] MEDS ORDERED: AZITHROMYCIN 250MG TABLET PO SCH (21:00)
[2021-02-23] MEDS ORDERED: GABAPENTIN 100 MG CAP PO SCH (21:00)
[2021-02-23] MEDS ORDERED: ATORVASTATIN 20 MG TAB PO SCH (21:00)
== END 2021-02-23 12:45 | disposition home or self-care (01) ==
LOC: EDBD 15:46 → M ED 15:46 → M ED INP 15:47 → M MSPAV 02-23 02:50
PROVIDERS: ADMIT Family Medicine; ATTEND Internal Medicine Nephrology
DX: J44.1 Chronic obstructive pulmonary disease with (acute) exacerbation (principal); J96.11 Chronic respiratory failure with hypoxia; G31.84 Mild cognitive impairment of uncertain or unknown etiology; I50.42 Chronic combined systolic (congestive) and diastolic (congestive) heart failure; Z85.51 Personal history of malignant neoplasm of bladder; J86.9 Pyothorax without fistula; M54.9 Dorsalgia, unspecified; S32.048 Other fracture of fourth lumbar vertebra; X58.XXXS Exposure to other specified factors, sequela; M48.00 Spinal stenosis, site unspecified; I73.9 Peripheral vascular disease, unspecified; Z95.820 Peripheral vascular angioplasty status with implants and grafts; N18.30 Chronic kidney disease, stage 3 unspecified; E78.5 Hyperlipidemia, unspecified; E11.22 Type 2 diabetes mellitus with diabetic chronic kidney disease; E03.9 Hypothyroidism, unspecified; I13.0 Hypertensive heart and chronic kidney disease with heart failure and stage 1 through stage 4 chronic kidney disease, or unspecified chronic kidney disease; F41.9 Anxiety disorder, unspecified; F32.9 Major depressive disorder, single episode, unspecified; R91.1 Solitary pulmonary nodule; R53.81 Other malaise; R53.83 Other fatigue; F17.200 Nicotine dependence, unspecified, uncomplicated; Z79.899 Other long term (current) drug therapy; Z79.02 Long term (current) use of antithrombotics/antiplatelets; Z79.84 Long term (current) use of oral hypoglycemic drugs; Z79.4 Long term (current) use of insulin; Z88.2 Allergy status to sulfonamides; Z88.5 Allergy status to narcotic agent; Z88.8 Allergy status to other drugs, medicaments and biological substances; Z91.048 Other nonmedicinal substance allergy status; Z99.81 Dependence on supplemental oxygen; Z91.14 Patient's other noncompliance with medication regimen

== ENCOUNTER 2021-02-25 17:05 | Inpatient (IN) | payer MEDICARE ==
[~2021-02-25] VITALS: Ht 157.5 cm; Wt 45.5 kg
[~2021-02-25 17:05] MED LIST changes: +ALBU83IN NEB
[2021-02-25 18:01] LABS: BASO % 0.4 % (0.0-1.0); EOS # 0.2 10^3/uL (0.0-0.5); EOS % 1.4 % (0.0-3.0); HEMATOCRIT 31.9 % (36.0-47.0); HEMOGLOBIN 10.2 g/dl (12.0-15.5); LYMPH # 0.8 10^3/uL (1.5-5.0); LYMPH % 7.2 % (24.0-44.0); MEAN CORPUSCULAR HEMOGLOBIN 29.7 pg (27.0-33.0); MEAN CORPUSCULAR VOLUME 92.7 fl (80.0-96.0); MONO # 0.7 10^3/uL (0.0-0.8); MONO % 6.2 % (2.0-8.0); NEUTROPHILS # 9.6 10^3/uL (1.5-8.5); NEUTROPHILS % 84.5 % (36.0-66.0); PLATELET COUNT, AUTOMATED 214 10^3/uL (150-450); RED BLOOD COUNT 3.44 10^6/uL (4.00-5.40); WHITE BLOOD COUNT 11.3 10^3/uL (4.0-10.0)
[2021-02-25 18:39] LABS: ALBUMIN 2.5 GM/DL (3.2-5.2); ALT/SGPT 34 U/L (12-78); BILIRUBIN,DIRECT < 0.1 MG/DL (0.0-0.2); BILIRUBIN,TOTAL 0.2 MG/DL (0.2-1.0); BLOOD UREA NITROGEN 30 MG/DL (7-18); CALCIUM LEVEL 8.2 MG/DL (8.8-10.2); CARBON DIOXIDE LEVEL 32 MEQ/L (21-32); CHLORIDE LEVEL 105 MEQ/L (98-107); FREE T4 1.07 NG/DL (0.76-1.46); GLOMERULAR FILTRATION RATE 57.5 (>39); GLUCOSE, FASTING 127 MG/DL (70-100); NT-PRO BNP 10221 PG/ML (<450); POTASSIUM SERUM 4.8 MEQ/L (3.5-5.1); SODIUM LEVEL 141 MEQ/L (136-145); TOTAL PROTEIN 5.4 GM/DL (6.4-8.2)
[2021-02-25] MEDS ORDERED: ISOVUE-370 76% 100ML VIAL As Ordered ONE (19:52)
[2021-02-25] MEDS ORDERED: ACETAMINOPHEN 325 MG TAB PO ONE (21:35)
[2021-02-25] MEDS ORDERED: HOME MED LIST COMPLETE! XX SCH (22:20)
[2021-02-25] MEDS ORDERED: GLUCAGON INJ 1MG VIAL SC PRN (22:50)
[2021-02-25] MEDS ORDERED: DEXTROSE 50% 50 ML SYRINGE IV PRN (22:50)
[2021-02-25] MEDS ORDERED: GI COCKTAIL 50ML BTL(HYOSCYAMINE/MAALOX/LIDOCAINE VISCOUS)(1:3:1) PO ONE (22:50)
[2021-02-25] MEDS ORDERED: hydrOXYzine 10 MG TAB PO PRN (22:50)
[2021-02-25] MEDS ORDERED: ACETAMINOPHEN TAB 650MG DOSE (2X325MG) PO PRN (22:50)
[2021-02-25] MEDS ORDERED: GLUCOSE 4GM CHEW TABLET PO PRN (22:50)
[2021-02-25] MEDS ORDERED: PERCOCET 5MG/325MG TAB PO ONE (23:00)
[2021-02-26] MEDS: ENOXAPARIN 40MG/0.4ML SYRINGE (J1650 PER 10MG) SC SCH ×2 (01:49→09:20)
[2021-02-26 01:57] LABS: AMYLASE 83 U/L (25-115); LIPASE 278 U/L (73-393)
[2021-02-26 02:00] VITALS: BP 126/68
[2021-02-26] MEDS: IPRATROPIUM 0.5MG/ALBUTEROL 2.5MG INH SOL UD 3ML (DUONEB) NEB SCH ×4 (02:00→20:00)
[2021-02-26] MEDS ORDERED: SIMETHICONE 80MG CHEW TAB PO PRN (03:35)
[2021-02-26] MEDS: BISACODYL 10 MG SUPP PR PRN ×2 (03:48→20:36)
[2021-02-26 06:00] VITALS: BP 132/76
[2021-02-26] MEDS ORDERED: LEVOTHYROXINE 75MCG TABLET (0.075MG) PO SCH (06:00)
[2021-02-26 06:31] LABS: CREATININE FOR GFR 0.97 MG/DL (0.55-1.30); GLOMERULAR FILTRATION RATE 59.6 (>39); POTASSIUM SERUM 4.1 MEQ/L (3.5-5.1)
[2021-02-26] MEDS: HumaLOG INSULIN (NovoLOG) PER UNIT SC SCH ×3 (07:30→17:19)
[2021-02-26] MEDS: ADVAIR HFA 230/21MCG INHALER INH SCH ×2 (07:51→20:00)
[2021-02-26] MEDS ORDERED: MUPIROCIN 2% OINT 22 GM TUBE TOP SCH (09:00)
[2021-02-26] MEDS ORDERED: LEVEMIR (INSULIN DETEMIR) 1 UNITS/0.01ML SC SCH (09:00)
[2021-02-26] MEDS ORDERED: DULoxetine 30MG CAPSULE (CYMBALTA) PO SCH (09:00)
[2021-02-26] MEDS ORDERED: MIRALAX *UNIT DOSE* 17GM PACKET PO SCH (09:00)
[2021-02-26] MEDS: valACYclovir HCL 500 MG TAB PO SCH ×2 (09:21→20:39)
[2021-02-26] MEDS: DOCUSATE SODIUM 100MG CAPSULE PO SCH ×2 (09:21→20:35)
[2021-02-26] MEDS: **hydrALAZINE** 50 MG TAB PO SCH ×2 (09:22→20:36)
[2021-02-26 09:47] VITALS: O2SAT 100
[2021-02-26 10:00] VITALS: BP 148/69
[2021-02-26 11:36] LABS: HEMATOCRIT 28.9 % (36.0-47.0); HEMOGLOBIN 9.1 g/dl (12.0-15.5); MEAN CORPUSCULAR HEMOGLOBIN 29.4 pg (27.0-33.0); MEAN CORPUSCULAR HGB CONC 31.5 g/dl (32.0-36.5); MEAN CORPUSCULAR VOLUME 93.5 fl (80.0-96.0); PLATELET COUNT, AUTOMATED 204 10^3/uL (150-450); RED BLOOD COUNT 3.09 10^6/uL (4.00-5.40)
[2021-02-26] MEDS ORDERED: methylPREDNISolone 125MG 2ML VIAL IV SCH (16:00)
[2021-02-26 18:00] VITALS: BP 157/77
[2021-02-26 20:36] VITALS: BP 148/75
[2021-02-26] MEDS ORDERED: SENNA 8.6 MG TAB (SENOKOT) PO SCH (21:00)
[2021-02-26] MEDS ORDERED: ATORVASTATIN 20 MG TAB PO SCH (21:00)
[2021-02-26] MEDS ORDERED: GABAPENTIN 100 MG CAP PO SCH (21:00)
[2021-02-26] MEDS ORDERED: HumaLOG INSULIN (NovoLOG) PER UNIT SC SCH (21:00)
[2021-02-27] MEDS ORDERED: ENOXAPARIN 40MG/0.4ML SYRINGE (J1650 PER 10MG) SC SCH (09:00)
== END 2021-02-26 23:09 | disposition left against medical advice (07) | DRG 191 ==
LOC: M ED 17:05 → EDBD 17:05 → M ED INP 17:06 → ENRESERV 23:44 → M MSPAV 02-26 00:55 → OBSVTOIN 02-26 15:26
PROVIDERS: ADMIT Family Medicine; ATTEND Internal Medicine
DX: J44.1 Chronic obstructive pulmonary disease with (acute) exacerbation (principal); J96.11 Chronic respiratory failure with hypoxia; I50.32 Chronic diastolic (congestive) heart failure; I13.0 Hypertensive heart and chronic kidney disease with heart failure and stage 1 through stage 4 chronic kidney disease, or unspecified chronic kidney disease; G31.84 Mild cognitive impairment of uncertain or unknown etiology; M54.9 Dorsalgia, unspecified; S32.048 Other fracture of fourth lumbar vertebra; M48.00 Spinal stenosis, site unspecified; E11.51 Type 2 diabetes mellitus with diabetic peripheral angiopathy without gangrene; N18.30 Chronic kidney disease, stage 3 unspecified; E78.5 Hyperlipidemia, unspecified; E11.22 Type 2 diabetes mellitus with diabetic chronic kidney disease; E03.9 Hypothyroidism, unspecified; F41.9 Anxiety disorder, unspecified; F32.A Depression, unspecified; R91.1 Solitary pulmonary nodule; R53.81 Other malaise; E11.65 Type 2 diabetes mellitus with hyperglycemia; B02.9 Zoster without complications; E11.649 Type 2 diabetes mellitus with hypoglycemia without coma; K59.00 Constipation, unspecified; R53.83 Other fatigue; F17.200 Nicotine dependence, unspecified, uncomplicated; Z79.899 Other long term (current) drug therapy; Z79.02 Long term (current) use of antithrombotics/antiplatelets; Z79.84 Long term (current) use of oral hypoglycemic drugs; Z85.51 Personal history of malignant neoplasm of bladder; Z95.820 Peripheral vascular angioplasty status with implants and grafts; Z79.4 Long term (current) use of insulin; Z88.2 Allergy status to sulfonamides; Z88.5 Allergy status to narcotic agent; Z88.8 Allergy status to other drugs, medicaments and biological substances; Z91.048 Other nonmedicinal substance allergy status; Z99.81 Dependence on supplemental oxygen; Z91.14 Patient's other noncompliance with medication regimen

== ENCOUNTER 2021-03-04 10:52 | Observation (INO) | payer MEDICARE ==
[~2021-03-04] VITALS: Ht 157.5 cm; Wt 45.5 kg
[2021-03-04] MEDS ORDERED: cefTRIAXone SOD 2 GM in D5W MINI-BAG PLUS 50 ML IV ONE (12:35)
[2021-03-04] MEDS ORDERED: methylPREDNISolone 125MG 2ML VIAL IV ONE (12:35)
[2021-03-04] MEDS ORDERED: NICOTINE 21MG/24HR 1 EA TRANSDERMAL TD ONE (12:35)
[2021-03-04 14:04] LABS: ALBUMIN 2.4 GM/DL (3.2-5.2); ALT/SGPT 25 U/L (12-78); BILIRUBIN,DIRECT < 0.1 MG/DL (0.0-0.2); BILIRUBIN,TOTAL 0.2 MG/DL (0.2-1.0); BLOOD UREA NITROGEN 19 MG/DL (7-18); CALCIUM LEVEL 8.7 MG/DL (8.8-10.2); CARBON DIOXIDE LEVEL 27 MEQ/L (21-32); CHLORIDE LEVEL 111 MEQ/L (98-107); CREATININE FOR GFR 0.82 MG/DL (0.55-1.30); GLOMERULAR FILTRATION RATE > 60.0 (>39); GLUCOSE, FASTING 51 MG/DL (70-100); NT-PRO BNP 18313 PG/ML (<450); POTASSIUM SERUM 4.5 MEQ/L (3.5-5.1); SODIUM LEVEL 144 MEQ/L (136-145); TOTAL PROTEIN 5.5 GM/DL (6.4-8.2)
[2021-03-04] MEDS ORDERED: ALBU83IN NEB (14:16)
[2021-03-04] MEDS ORDERED: INSUDET SC (14:16)
[2021-03-04] MEDS ORDERED: HOME MED LIST COMPLETE! XX SCH (14:20)
[2021-03-04] MEDS: MORPHINE 2 MG/ML 1ML VIAL (J2270) IV PRN ×2 (14:33→15:37)
[2021-03-04 14:54] LABS: BASO # 0.1 10^3/uL (0.0-0.2); BASO % 0.5 % (0.0-1.0); EOS # 0.1 10^3/uL (0.0-0.5); HEMATOCRIT 29.2 % (36.0-47.0); HEMOGLOBIN 9.3 g/dl (12.0-15.5); LYMPH # 0.8 10^3/uL (1.5-5.0); LYMPH % 7.5 % (24.0-44.0); MEAN CORPUSCULAR HEMOGLOBIN 29.6 pg (27.0-33.0); MEAN CORPUSCULAR HGB CONC 31.8 g/dl (32.0-36.5); MONO # 0.4 10^3/uL (0.0-0.8); MONO % 3.6 % (2.0-8.0); NEUTROPHILS # 9.1 10^3/uL (1.5-8.5); NEUTROPHILS % 86.8 % (36.0-66.0); PLATELET COUNT, AUTOMATED 239 10^3/uL (150-450); RED BLOOD COUNT 3.14 10^6/uL (4.00-5.40); WHITE BLOOD COUNT 10.5 10^3/uL (4.0-10.0)
[2021-03-04] MEDS ORDERED: hydrOXYzine 10 MG TAB PO PRN (16:30)
[2021-03-04] MEDS ORDERED: MOM 30ML SUSPENSION UDC PO PRN (16:30)
[2021-03-04] MEDS ORDERED: MAALOX 30 ML SUSP *UDC PO PRN (16:30)
[2021-03-04] MEDS ORDERED: ACETAMINOPHEN TAB 650MG DOSE (2X325MG) PO PRN (16:30)
[2021-03-04 16:41] VITALS: BP 150/65
[2021-03-04] MEDS ORDERED: FUROSEMIDE 40MG/4ML VIAL (J1940) IV ONE (17:00)
[2021-03-04] MEDS ORDERED: DOXYCYCLINE HYCLATE 100 MG in D5W MINI-BAG PLUS 100 ML IV ONE (18:00)
[2021-03-04] MEDS ORDERED: GABAPENTIN 100 MG CAP PO SCH (21:00)
[2021-03-04] MEDS ORDERED: LEVEMIR (INSULIN DETEMIR) 1 UNITS/0.01ML SC SCH (21:00)
[2021-03-04] MEDS ORDERED: **hydrALAZINE** 50 MG TAB PO SCH (21:00)
[2021-03-04] MEDS ORDERED: ATORVASTATIN 20 MG TAB PO SCH (21:00)
[2021-03-05] MEDS ORDERED: LEVOTHYROXINE 75MCG TABLET (0.075MG) PO SCH (06:00)
[2021-03-05] MEDS ORDERED: SYMBICORT 160/4.5MCG INHALER 6GM INH SCH (08:00)
[2021-03-05] MEDS ORDERED: ENOXAPARIN 40MG/0.4ML SYRINGE (J1650 PER 10MG) SC SCH (09:00)
[2021-03-05] MEDS ORDERED: DULoxetine 30MG CAPSULE (CYMBALTA) PO SCH (09:00)
[2021-03-05] MEDS ORDERED: cefTRIAXone SOD 1 GM in D5W MINI-BAG PLUS 50 ML IV SCH (14:00)
== END 2021-03-04 20:48 | disposition left against medical advice (07) ==
LOC: M ED 10:52 → EDBD 10:52 → M ED INP 10:53
PROVIDERS: ADMIT Family Medicine; ATTEND Family Medicine
DX: J44.1 Chronic obstructive pulmonary disease with (acute) exacerbation (principal); J18.9 Pneumonia, unspecified organism; R06.02 Shortness of breath; Z99.81 Dependence on supplemental oxygen; I50.30 Unspecified diastolic (congestive) heart failure; E78.5 Hyperlipidemia, unspecified; E03.9 Hypothyroidism, unspecified; E11.9 Type 2 diabetes mellitus without complications; I11.0 Hypertensive heart disease with heart failure; F41.9 Anxiety disorder, unspecified; F32.9 Major depressive disorder, single episode, unspecified; R91.1 Solitary pulmonary nodule; S32.040G Wedge compression fracture of fourth lumbar vertebra, subsequent encounter for fracture with delayed healing; X58.XXXD Exposure to other specified factors, subsequent encounter; F17.210 Nicotine dependence, cigarettes, uncomplicated; Z79.899 Other long term (current) drug therapy; Z79.51 Long term (current) use of inhaled steroids; Z79.4 Long term (current) use of insulin; Z79.84 Long term (current) use of oral hypoglycemic drugs; Z88.8 Allergy status to other drugs, medicaments and biological substances; Z88.2 Allergy status to sulfonamides; Z88.5 Allergy status to narcotic agent; Z88.1 Allergy status to other antibiotic agents
CPT/HCPCS: 71045; 80048; 80076; 83605; 83880; 84443; 85025; 87040; 87798; 93005; 93041; 94760; 96365; 96375; 96376; 99285; G0378; J0696; J1940; J2270; J2930

== ENCOUNTER 2021-03-13 15:54 | Emergency (ER) | payer MEDICARE ==
[2021-03-13] MEDS ORDERED: COMBIVENT RESPIMAT 100-20MCG INHALER 4GM INH ONE (16:40)
[2021-03-13] MEDS ORDERED: methylPREDNISolone 125MG 2ML VIAL IV ONE (16:40)
[2021-03-13 17:00] LABS: BASO # 0.1 10^3/uL (0.0-0.2); BASO % 0.7 % (0.0-1.0); EOS # 0.2 10^3/uL (0.0-0.5); HEMATOCRIT 29.7 % (36.0-47.0); HEMOGLOBIN 9.5 g/dl (12.0-15.5); LYMPH % 10.6 % (24.0-44.0); MEAN CORPUSCULAR VOLUME 93.7 fl (80.0-96.0); MONO # 0.7 10^3/uL (0.0-0.8); MONO % 7.1 % (2.0-8.0); NEUTROPHILS # 7.7 10^3/uL (1.5-8.5); NEUTROPHILS % 78.9 % (36.0-66.0); PLATELET COUNT, AUTOMATED 201 10^3/uL (150-450); RED BLOOD COUNT 3.17 10^6/uL (4.00-5.40); WHITE BLOOD COUNT 9.7 10^3/uL (4.0-10.0)
[2021-03-13 17:02] LABS: ABG BASE EXCESS 2.1 (-2.0-2.0); ABG HCO3 27.1 MEQ/L (22.0-26.0); ABG O2 SATURATION 95.2 % (95.0-99.0); ABG PARTIAL PRESSURE CO2 44.4 mmHg (35.0-45.0); ABG PARTIAL PRESSURE O2 82.9 mmHg (75.0-100.0); ABG STANDARD HCO3 26.3 MEQ/L (22.0-26.0); ABG TOTAL CO2 28.5 MEQ/L (23.0-31.0); ABG pH (ARTERIAL) 7.404 UNITS (7.350-7.450)
[2021-03-13 17:14] LABS: CK-MB VALUE MASS 4.6 NG/ML (<3.6); MB/CK RELATIVE INDEX 6.76 (< OR =4)
[2021-03-13 17:15] VITALS: BP 221/106
[2021-03-13 17:33] LABS: ALBUMIN 2.6 GM/DL (3.2-5.2); ALT/SGPT 26 U/L (12-78); BILIRUBIN,DIRECT < 0.1 MG/DL (0.0-0.2); BILIRUBIN,TOTAL 0.2 MG/DL (0.2-1.0); BLOOD UREA NITROGEN 21 MG/DL (7-18); CALCIUM LEVEL 8.6 MG/DL (8.8-10.2); CARBON DIOXIDE LEVEL 28 MEQ/L (21-32); CHLORIDE LEVEL 99 MEQ/L (98-107); GLOMERULAR FILTRATION RATE 46.6 (>39); GLUCOSE, FASTING 611 MG/DL (70-100); NT-PRO BNP 35319 PG/ML (<450); POTASSIUM SERUM 4.7 MEQ/L (3.5-5.1); SODIUM LEVEL 136 MEQ/L (136-145); TOTAL PROTEIN 5.9 GM/DL (6.4-8.2)
[2021-03-13] MEDS ORDERED: **hydrALAZINE** 50 MG TAB PO ONE (17:45)
[2021-03-13] MEDS ORDERED: HumuLIN R (REGULAR) INSULIN (NovoLIN R) **100U/ML** PER UNIT IV ONE (17:50)
[2021-03-13] MEDS ORDERED: ISOVUE-370 76% 100ML VIAL As Ordered ONE (17:57)
== END 2021-03-13 18:38 | disposition left against medical advice (07) ==
LOC: M ED 15:54 → EDBD 15:54 → M ED 18:38
DX: R06.02 Shortness of breath (principal); E11.9 Type 2 diabetes mellitus without complications; I50.9 Heart failure, unspecified; J44.9 Chronic obstructive pulmonary disease, unspecified; E78.5 Hyperlipidemia, unspecified; Z53.9 Procedure and treatment not carried out, unspecified reason; Z88.1 Allergy status to other antibiotic agents; Z88.2 Allergy status to sulfonamides; Z88.8 Allergy status to other drugs, medicaments and biological substances
CPT/HCPCS: 36600; 71045; 80048; 80076; 82550; 82553; 82803; 83880; 84443; 84484; 85025; 93005; 93041; 94640; 96374; 99284; J2930

== ENCOUNTER 2021-03-15 04:09 | Inpatient (IN) | payer MEDICARE ==
[~2021-03-15] VITALS: Ht 157.5 cm; Wt 57.0 kg
[2021-03-15 04:58] LABS: BASO # 0.1 10^3/uL (0.0-0.2); BASO % 0.4 % (0.0-1.0); EOS # 0.3 10^3/uL (0.0-0.5); HEMATOCRIT 27.3 % (36.0-47.0); HEMOGLOBIN 8.8 g/dl (12.0-15.5); LYMPH # 1.4 10^3/uL (1.5-5.0); LYMPH % 9.7 % (24.0-44.0); MEAN CORPUSCULAR HEMOGLOBIN 29.9 pg (27.0-33.0); MEAN CORPUSCULAR HGB CONC 32.2 g/dl (32.0-36.5); MEAN CORPUSCULAR VOLUME 92.9 fl (80.0-96.0); MONO # 0.9 10^3/uL (0.0-0.8); MONO % 6.7 % (2.0-8.0); NEUTROPHILS # 11.3 10^3/uL (1.5-8.5); NEUTROPHILS % 80.6 % (36.0-66.0); PLATELET COUNT, AUTOMATED 249 10^3/uL (150-450); RED BLOOD COUNT 2.94 10^6/uL (4.00-5.40); WHITE BLOOD COUNT 14.1 10^3/uL (4.0-10.0)
[2021-03-15 05:02] LABS: ABG BASE EXCESS 0.6 (-2.0-2.0); ABG HCO3 25.9 MEQ/L (22.0-26.0); ABG O2 SATURATION 75.2 % (95.0-99.0); ABG PARTIAL PRESSURE CO2 44.6 mmHg (35.0-45.0); ABG STANDARD HCO3 24.7 MEQ/L (22.0-26.0); ABG TOTAL CO2 27.3 MEQ/L (23.0-31.0); ABG pH (ARTERIAL) 7.382 UNITS (7.350-7.450)
[2021-03-15 05:04] LABS: ABG PARTIAL PRESSURE O2 43.2 mmHg (75.0-100.0)
[2021-03-15] MEDS ORDERED: methylPREDNISolone 125MG 2ML VIAL IV ONE (05:05)
[2021-03-15 05:23] LABS: CK-MB VALUE MASS 5.3 NG/ML (<3.6); MB/CK RELATIVE INDEX 5.35 (< OR =4)
[2021-03-15 05:48] LABS: ALBUMIN 2.6 GM/DL (3.2-5.2); ALT/SGPT 27 U/L (12-78); BILIRUBIN,DIRECT < 0.1 MG/DL (0.0-0.2); BILIRUBIN,TOTAL 0.3 MG/DL (0.2-1.0); BLOOD UREA NITROGEN 30 MG/DL (7-18); CALCIUM LEVEL 8.7 MG/DL (8.8-10.2); CARBON DIOXIDE LEVEL 27 MEQ/L (21-32); CHLORIDE LEVEL 106 MEQ/L (98-107); CREATININE FOR GFR 1.27 MG/DL (0.55-1.30); GLOMERULAR FILTRATION RATE 43.7 (>39); GLUCOSE, FASTING 244 MG/DL (70-100); NT-PRO BNP 37440 PG/ML (<450); SODIUM LEVEL 138 MEQ/L (136-145); TOTAL PROTEIN 5.9 GM/DL (6.4-8.2)
[2021-03-15] MEDS ORDERED: FUROSEMIDE 40MG/4ML VIAL (J1940) IV ONE (05:55)
[2021-03-15] MEDS ORDERED: ASPIRIN 81 MG CHEW TABLET PO ONE (05:55)
[2021-03-15] MEDS ORDERED: ISOVUE-370 76% 100ML VIAL As Ordered ONE (05:57)
[2021-03-15] MEDS ORDERED: ASPIRIN 81 MG CHEW TABLET As Ordered ONE (06:09)
[2021-03-15] MEDS ORDERED: FUROSEMIDE 40MG/4ML VIAL (J1940) As Ordered ONE (06:09)
[2021-03-15] MEDS: IPRATROPIUM 0.5MG/ALBUTEROL 2.5MG INH SOL UD 3ML (DUONEB) NEB SCH ×4 (06:30→20:57)
[2021-03-15 06:42] LABS: CK-MB VALUE MASS 5.5 NG/ML (<3.6); MB/CK RELATIVE INDEX 6.55 (< OR =4)
[2021-03-15] MEDS ORDERED: HOME MED LIST COMPLETE! XX SCH (10:40)
[2021-03-15] MEDS ORDERED: MAALOX 30 ML SUSP *UDC PO PRN (11:45)
[2021-03-15] MEDS ORDERED: ALBUTEROL SULFATE 2.5 MG/0.5 ML INH NEB SOLN NEB PRN (11:45)
[2021-03-15] MEDS ORDERED: ACETAMINOPHEN TAB 650MG DOSE (2X325MG) PO PRN (11:45)
[2021-03-15] MEDS ORDERED: hydrOXYzine 10 MG TAB PO PRN (11:45)
[2021-03-15] MEDS ORDERED: MOM 30ML SUSPENSION UDC PO PRN (11:45)
[2021-03-15] MEDS: HumaLOG INSULIN (NovoLOG) PER UNIT SC SCH ×2 (12:00→17:21)
[2021-03-15] MEDS ORDERED: GLUCOSE 4GM CHEW TABLET PO PRN (13:00)
[2021-03-15] MEDS ORDERED: GLUCAGON INJ 1MG VIAL SC PRN (13:00)
[2021-03-15] MEDS ORDERED: DEXTROSE 50% 50 ML SYRINGE IV PRN (13:00)
[2021-03-15] MEDS ORDERED: methylPREDNISolone 125MG 2ML VIAL IV SCH (13:00)
[2021-03-15] MEDS: DULoxetine 30MG CAPSULE (CYMBALTA) PO SCH (15:43)
[2021-03-15] MEDS: NICOTINE 21MG/24HR 1 EA TRANSDERMAL TD SCH (15:43)
[2021-03-15] MEDS: PANTOPRAZOLE 40MG VIAL (C9113 PER 1) IV SCH (15:43)
[2021-03-15] MEDS: **hydrALAZINE** 50 MG TAB PO SCH ×2 (15:44→21:18)
[2021-03-15 17:20] VITALS: BP 152/74
[2021-03-15] MEDS: ATORVASTATIN 20 MG TAB PO SCH (20:56)
[2021-03-15] MEDS: methylPREDNISolone 40MG 1ML VIAL IV SCH (20:56)
[2021-03-15] MEDS: GABAPENTIN 100 MG CAP PO SCH (20:56)
[2021-03-15] MEDS: SYMBICORT 160/4.5MCG INHALER 6GM INH SCH (20:57)
[2021-03-15] MEDS ORDERED: HumaLOG INSULIN (NovoLOG) PER UNIT SC SCH (21:00)
[2021-03-15] MEDS ORDERED: LEVEMIR (INSULIN DETEMIR) 1 UNITS/0.01ML SC SCH (21:00)
[2021-03-15 21:06] VITALS: BP 180/68
[2021-03-15] MEDS ORDERED: HumuLIN R (REGULAR) INSULIN (NovoLIN R) **100U/ML** PER UNIT IV STA (21:49)
[2021-03-15] MEDS ORDERED: NS 1,000 ML IV ONE (22:05)
[2021-03-15 22:10] LABS: ABG BASE EXCESS -2.8 (-2.0-2.0); ABG HCO3 21.4 MEQ/L (22.0-26.0); ABG O2 SATURATION 98.3 % (95.0-99.0); ABG PARTIAL PRESSURE CO2 34.3 mmHg (35.0-45.0); ABG PARTIAL PRESSURE O2 121.8 mmHg (75.0-100.0); ABG STANDARD HCO3 22.1 MEQ/L (22.0-26.0); ABG TOTAL CO2 22.5 MEQ/L (23.0-31.0); ABG pH (ARTERIAL) 7.413 UNITS (7.350-7.450)
[2021-03-15 23:19] VITALS: BP 130/55
[2021-03-15 23:53] LABS: ACETONE/KETONE 4.36 MG/DL (<2.81); CALCIUM LEVEL 8.4 MG/DL (8.8-10.2); CREATININE FOR GFR 2.05 MG/DL (0.55-1.30); GLOMERULAR FILTRATION RATE 25.1 (>39); POTASSIUM SERUM 5.4 MEQ/L (3.5-5.1)
[2021-03-16] VITALS (10 sets, daily range): BP systolic 105–165; BP diastolic 51–74
[2021-03-16] MEDS ORDERED: NS 1,000 ML IV SCH (00:20)
[2021-03-16] MEDS ORDERED: INSULIN REGULAR IN 0.9 % NACL 100 UNIT in IV 1 EA IV SCH ×2 (00:30)
[2021-03-16 02:35] LABS: CALCIUM LEVEL 8.4 MG/DL (8.8-10.2); CREATININE FOR GFR 1.98 MG/DL (0.55-1.30); GLOMERULAR FILTRATION RATE 26.2 (>39); PHOSPHORUS LEVEL 3.1 MG/DL (2.5-4.9); POTASSIUM SERUM 4.1 MEQ/L (3.5-5.1)
[2021-03-16] MEDS: INSULIN IV RATE CHANGE DOCUMENTATION ML/HR XX SCH ×2 (03:03→04:12)
[2021-03-16] MEDS: IPRATROPIUM 0.5MG/ALBUTEROL 2.5MG INH SOL UD 3ML (DUONEB) NEB SCH ×4 (04:08→19:18)
[2021-03-16] MEDS: LEVOTHYROXINE 75MCG TABLET (0.075MG) PO SCH (05:28)
[2021-03-16] MEDS: methylPREDNISolone 40MG 1ML VIAL IV SCH (05:28)
[2021-03-16 05:56] LABS: BASO % 0.1 % (0.0-1.0); HEMATOCRIT 21.3 % (36.0-47.0); LYMPH # 0.5 10^3/uL (1.5-5.0); MEAN CORPUSCULAR HEMOGLOBIN 30.4 pg (27.0-33.0); MEAN CORPUSCULAR HGB CONC 32.9 g/dl (32.0-36.5); MEAN CORPUSCULAR VOLUME 92.6 fl (80.0-96.0); MONO # 1.1 10^3/uL (0.0-0.8); MONO % 7.1 % (2.0-8.0); NEUTROPHILS # 13.1 10^3/uL (1.5-8.5); NEUTROPHILS % 88.8 % (36.0-66.0); PLATELET COUNT, AUTOMATED 191 10^3/uL (150-450); WHITE BLOOD COUNT 14.8 10^3/uL (4.0-10.0)
[2021-03-16 06:23] LABS: CREATININE FOR GFR 1.58 MG/DL (0.55-1.30); GLOMERULAR FILTRATION RATE 33.9 (>39); PHOSPHORUS LEVEL 3.1 MG/DL (2.5-4.9); POTASSIUM SERUM 3.7 MEQ/L (3.5-5.1)
[2021-03-16 07:58] LABS: HEMOGLOBIN A1c 9.2 %
[2021-03-16] MEDS ORDERED: TIOTROPIUM INHALER/CAPSULE (SPIRIVA) INH SCH (08:00)
[2021-03-16] MEDS: SYMBICORT 160/4.5MCG INHALER 6GM INH SCH ×2 (08:00→19:18)
[2021-03-16] MEDS: ENOXAPARIN 40MG/0.4ML SYRINGE (J1650 PER 10MG) SC SCH (08:10)
[2021-03-16] MEDS: PANTOPRAZOLE 40MG VIAL (C9113 PER 1) IV SCH (08:10)
[2021-03-16] MEDS: **hydrALAZINE** 50 MG TAB PO SCH ×2 (08:10→21:12)
[2021-03-16] MEDS: NICOTINE 21MG/24HR 1 EA TRANSDERMAL TD SCH (08:10)
[2021-03-16] MEDS: DULoxetine 30MG CAPSULE (CYMBALTA) PO SCH (08:10)
[2021-03-16] MEDS: HumaLOG INSULIN (NovoLOG) PER UNIT SC SCH ×2 (12:02→17:12)
[2021-03-16 12:42] LABS: HEMATOCRIT 24.5 % (36.0-47.0); HEMOGLOBIN 7.9 g/dl (12.0-15.5); MEAN CORPUSCULAR HEMOGLOBIN 30.2 pg (27.0-33.0); MEAN CORPUSCULAR HGB CONC 32.2 g/dl (32.0-36.5); MEAN CORPUSCULAR VOLUME 93.5 fl (80.0-96.0); PLATELET COUNT, AUTOMATED 234 10^3/uL (150-450); RED BLOOD COUNT 2.62 10^6/uL (4.00-5.40); WHITE BLOOD COUNT 19.2 10^3/uL (4.0-10.0)
[2021-03-16] MEDS ORDERED: methylPREDNISolone 40MG 1ML VIAL IV ONE (18:00)
[2021-03-16] MEDS ORDERED: LEVEMIR (INSULIN DETEMIR) 1 UNITS/0.01ML SC SCH (21:00)
[2021-03-16] MEDS: GABAPENTIN 100 MG CAP PO SCH (21:12)
[2021-03-16] MEDS: ATORVASTATIN 20 MG TAB PO SCH (21:13)
[2021-03-16 21:48] LABS: MAGNESIUM LEVEL 1.8 MG/DL (1.7-2.2)
[2021-03-16 21:56] LABS: MAGNESIUM LEVEL 1.7 MG/DL (1.7-2.2)
[2021-03-17] MEDS: IPRATROPIUM 0.5MG/ALBUTEROL 2.5MG INH SOL UD 3ML (DUONEB) NEB SCH ×4 (02:00→19:32)
[2021-03-17] MEDS: LEVOTHYROXINE 75MCG TABLET (0.075MG) PO SCH (05:34)
[2021-03-17 06:00] VITALS: BP 136/62
[2021-03-17 06:40] LABS: BASO % 0.1 % (0.0-1.0); HEMATOCRIT 24.1 % (36.0-47.0); HEMOGLOBIN 7.7 g/dl (12.0-15.5); LYMPH # 0.6 10^3/uL (1.5-5.0); LYMPH % 3.6 % (24.0-44.0); MEAN CORPUSCULAR HEMOGLOBIN 30.1 pg (27.0-33.0); MEAN CORPUSCULAR VOLUME 94.1 fl (80.0-96.0); MONO # 0.7 10^3/uL (0.0-0.8); MONO % 3.9 % (2.0-8.0); NEUTROPHILS # 16.5 10^3/uL (1.5-8.5); NEUTROPHILS % 91.5 % (36.0-66.0); PLATELET COUNT, AUTOMATED 227 10^3/uL (150-450); RED BLOOD COUNT 2.56 10^6/uL (4.00-5.40)
[2021-03-17 06:54] LABS: CALCIUM LEVEL 8.5 MG/DL (8.8-10.2); CREATININE FOR GFR 1.6 MG/DL (0.55-1.30); GLOMERULAR FILTRATION RATE 33.5 (>39)
[2021-03-17] MEDS: SYMBICORT 160/4.5MCG INHALER 6GM INH SCH ×2 (08:31→19:32)
[2021-03-17] MEDS: **hydrALAZINE** 50 MG TAB PO SCH (09:00)
[2021-03-17] MEDS ORDERED: predniSONE 20 MG TAB PO SCH (09:00)
[2021-03-17 09:15] VITALS: BP 110/50
[2021-03-17] MEDS: DULoxetine 30MG CAPSULE (CYMBALTA) PO SCH (09:17)
[2021-03-17] MEDS: ENOXAPARIN 40MG/0.4ML SYRINGE (J1650 PER 10MG) SC SCH (09:20)
[2021-03-17] MEDS: NICOTINE 21MG/24HR 1 EA TRANSDERMAL TD SCH (09:21)
[2021-03-17] MEDS: HumaLOG INSULIN (NovoLOG) PER UNIT SC SCH ×3 (09:21→18:23)
[2021-03-17] MEDS: PANTOPRAZOLE 40MG VIAL (C9113 PER 1) IV SCH (09:21)
[2021-03-17 14:00] VITALS: BP 128/58
== END 2021-03-17 20:28 | disposition left against medical advice (07) | DRG 191 ==
LOC: M ED 04:09 → M ED INP 11:43 → ENRESERV 15:19 → M MSPAV 16:49 → M PCU 03-16 00:52 → M MSPAV 03-16 20:18
PROVIDERS: ADMIT Internal Medicine; ATTEND Internal Medicine
DX: J44.1 Chronic obstructive pulmonary disease with (acute) exacerbation (principal); J96.11 Chronic respiratory failure with hypoxia; I13.0 Hypertensive heart and chronic kidney disease with heart failure and stage 1 through stage 4 chronic kidney disease, or unspecified chronic kidney disease; I50.32 Chronic diastolic (congestive) heart failure; N17.9 Acute kidney failure, unspecified; I24.8 Other forms of acute ischemic heart disease; I73.9 Peripheral vascular disease, unspecified; N18.30 Chronic kidney disease, stage 3 unspecified; E78.5 Hyperlipidemia, unspecified; E11.22 Type 2 diabetes mellitus with diabetic chronic kidney disease; E03.9 Hypothyroidism, unspecified; R91.8 Other nonspecific abnormal finding of lung field; F32.A Depression, unspecified; F41.9 Anxiety disorder, unspecified; E11.65 Type 2 diabetes mellitus with hyperglycemia; F17.200 Nicotine dependence, unspecified, uncomplicated; Z98.41 Cataract extraction status, right eye; Z98.42 Cataract extraction status, left eye; Z95.820 Peripheral vascular angioplasty status with implants and grafts; Z90.2 Acquired absence of lung [part of]; Z91.14 Patient's other noncompliance with medication regimen; Z91.19 Patient's noncompliance with other medical treatment and regimen; Z79.84 Long term (current) use of oral hypoglycemic drugs; Z79.899 Other long term (current) drug therapy; Z88.2 Allergy status to sulfonamides; Z88.8 Allergy status to other drugs, medicaments and biological substances; Z91.048 Other nonmedicinal substance allergy status

== ENCOUNTER 2021-03-20 14:19 | Emergency (ER) | payer MEDICARE ==
[2021-03-20] MEDS ORDERED: dexameTHASONE 20MG/5ML VIAL (J1100 PER 1MG) IV ONE (15:45)
[2021-03-20] MEDS ORDERED: ALBUTEROL SULFATE 2.5 MG/0.5 ML INH NEB SOLN INH ONE (15:45)
[2021-03-20] MEDS ORDERED: IPRATROPIUM 0.5MG/ALBUTEROL 2.5MG INH SOL UD 3ML (DUONEB) NEB ONE (15:45)
[2021-03-20 16:46] LABS: ABG BASE EXCESS 0.6 (-2.0-2.0); ABG HCO3 24.7 MEQ/L (22.0-26.0); ABG O2 SATURATION 98.4 % (95.0-99.0); ABG PARTIAL PRESSURE O2 121.3 mmHg (75.0-100.0); ABG STANDARD HCO3 25.1 MEQ/L (22.0-26.0); ABG TOTAL CO2 25.8 MEQ/L (23.0-31.0); ABG pH (ARTERIAL) 7.442 UNITS (7.350-7.450)
[2021-03-20 17:16] VITALS: BP 210/122
[2021-03-20 17:16] LABS: BASO % 0.2 % (0.0-1.0); EOS # 0.3 10^3/uL (0.0-0.5); EOS % 3.2 % (0.0-3.0); HEMOGLOBIN 8.4 g/dl (12.0-15.5); LYMPH # 1.2 10^3/uL (1.5-5.0); LYMPH % 12.5 % (24.0-44.0); MEAN CORPUSCULAR HEMOGLOBIN 30.4 pg (27.0-33.0); MEAN CORPUSCULAR HGB CONC 32.3 g/dl (32.0-36.5); MEAN CORPUSCULAR VOLUME 94.2 fl (80.0-96.0); MONO # 0.6 10^3/uL (0.0-0.8); MONO % 6.8 % (2.0-8.0); NEUTROPHILS # 7.1 10^3/uL (1.5-8.5); NEUTROPHILS % 76.7 % (36.0-66.0); PLATELET COUNT, AUTOMATED 207 10^3/uL (150-450); RED BLOOD COUNT 2.76 10^6/uL (4.00-5.40); WHITE BLOOD COUNT 9.3 10^3/uL (4.0-10.0)
[2021-03-20 17:43] LABS: CK-MB VALUE MASS 3.1 NG/ML (<3.6); MB/CK RELATIVE INDEX 7.56 (< OR =4)
[2021-03-20 17:49] LABS: ALBUMIN 2.4 GM/DL (3.2-5.2); ALT/SGPT 23 U/L (12-78); BILIRUBIN,DIRECT < 0.1 MG/DL (0.0-0.2); BILIRUBIN,TOTAL 0.2 MG/DL (0.2-1.0); BLOOD UREA NITROGEN 32 MG/DL (7-18); CALCIUM LEVEL 8.1 MG/DL (8.8-10.2); CARBON DIOXIDE LEVEL 30 MEQ/L (21-32); CHLORIDE LEVEL 108 MEQ/L (98-107); CREATININE FOR GFR 0.95 MG/DL (0.55-1.30); GLOMERULAR FILTRATION RATE > 60.0 (>39); GLUCOSE, FASTING 219 MG/DL (70-100); NT-PRO BNP 20497 PG/ML (<450); POTASSIUM SERUM 4.9 MEQ/L (3.5-5.1); SODIUM LEVEL 141 MEQ/L (136-145); TOTAL PROTEIN 4.9 GM/DL (6.4-8.2)
== END 2021-03-20 17:42 | disposition left against medical advice (07) ==
LOC: M ED 14:19
DX: R06.02 Shortness of breath (principal); N18.30 Chronic kidney disease, stage 3 unspecified; E11.9 Type 2 diabetes mellitus without complications; E78.5 Hyperlipidemia, unspecified; I50.9 Heart failure, unspecified; J44.9 Chronic obstructive pulmonary disease, unspecified; Z53.20 Procedure and treatment not carried out because of patient's decision for unspecified reasons; F17.200 Nicotine dependence, unspecified, uncomplicated; Z88.1 Allergy status to other antibiotic agents; Z88.2 Allergy status to sulfonamides; Z88.8 Allergy status to other drugs, medicaments and biological substances

== ENCOUNTER 2021-05-05 07:36 | Inpatient (IN) | payer MEDICARE ==
[~2021-05-05] VITALS: Ht 157.5 cm; Wt 53.2 kg
[2021-05-05 09:00] LABS: BASO # 0.1 10^3/uL (0.0-0.2); BASO % 0.6 % (0.0-1.0); EOS # 0.6 10^3/uL (0.0-0.5); HEMOGLOBIN 8.3 g/dl (12.0-15.5); LYMPH # 0.8 10^3/uL (1.5-5.0); LYMPH % 8.5 % (24.0-44.0); MEAN CORPUSCULAR HEMOGLOBIN 29.1 pg (27.0-33.0); MEAN CORPUSCULAR HGB CONC 31.9 g/dl (32.0-36.5); MEAN CORPUSCULAR VOLUME 91.2 fl (80.0-96.0); MONO # 0.8 10^3/uL (0.0-0.8); MONO % 7.8 % (2.0-8.0); NEUTROPHILS # 7.5 10^3/uL (1.5-8.5); NEUTROPHILS % 76.6 % (36.0-66.0); PLATELET COUNT, AUTOMATED 198 10^3/uL (150-450); RED BLOOD COUNT 2.85 10^6/uL (4.00-5.40); WHITE BLOOD COUNT 9.8 10^3/uL (4.0-10.0)
[2021-05-05] MEDS: DULoxetine 30MG CAPSULE (CYMBALTA) PO SCH (09:00)
[2021-05-05 09:22] LABS: CK-MB VALUE MASS 4.3 NG/ML (<3.6); MB/CK RELATIVE INDEX 6.72 (< OR =4)
[2021-05-05 09:26] LABS: ALBUMIN 2.4 GM/DL (3.2-5.2); ALT/SGPT 15 U/L (12-78); BILIRUBIN,DIRECT < 0.1 MG/DL (0.0-0.2); BILIRUBIN,TOTAL 0.2 MG/DL (0.2-1.0); BLOOD UREA NITROGEN 24 MG/DL (7-18); CALCIUM LEVEL 8.6 MG/DL (8.8-10.2); CARBON DIOXIDE LEVEL 28 MEQ/L (21-32); CHLORIDE LEVEL 108 MEQ/L (98-107); CREATININE FOR GFR 1.14 MG/DL (0.55-1.30); GLOMERULAR FILTRATION RATE 49.5 (>39); GLUCOSE, FASTING 113 MG/DL (70-100); LIPASE 2425 U/L (73-393); POTASSIUM SERUM 4.3 MEQ/L (3.5-5.1); SODIUM LEVEL 140 MEQ/L (136-145); TOTAL PROTEIN 5.4 GM/DL (6.4-8.2)
[2021-05-05] MEDS ORDERED: ISOVUE-370 76% 100ML VIAL As Ordered ONE (10:37)
[2021-05-05] MEDS ORDERED: D5W/0.9% SODIUM CHLORIDE 1,000 ML IV SCH (12:50)
[2021-05-05] MEDS ORDERED: GLUCAGON INJ 1MG VIAL SC PRN (14:40)
[2021-05-05] MEDS ORDERED: DEXTROSE 50% 50 ML SYRINGE IV PRN (14:40)
[2021-05-05] MEDS ORDERED: GLUCOSE 4GM CHEW TABLET PO PRN (14:40)
[2021-05-05 14:55] LABS: CHOLESTEROL LEVEL 121 MG/DL (<200); HDL CHOLESTEROL 44 MG/DL (>40); LDL CHOLESTEROL 57 MG/DL (<100); NON-HDL-C 77 MG/DL; TRIGLYCERIDES LEVEL 100 MG/DL (<150)
[2021-05-05] MEDS ORDERED: NICOTINE 21MG/24HR 1 EA TRANSDERMAL TD PRN (14:55)
[2021-05-05 15:13] LABS: FERRITIN 34 NG/ML (8-252); IRON (FE) 30 UG/DL (50-170); PERCENT SATURATION 11.9 % (13.2-45.0); TOTAL IRON BINDING CAPACITY 253 UG/DL (250-450)
[2021-05-05] MEDS ORDERED: ALBUTEROL SULFATE 2.5 MG/0.5 ML INH NEB SOLN NEB PRN (15:25)
[2021-05-05] MEDS ORDERED: HOME MED LIST COMPLETE! XX SCH (15:45)
[2021-05-05] MEDS: D5W/LR 1,000 ML IV SCH ×2 (15:58→22:44)
[2021-05-05] MEDS: HumaLOG INSULIN (NovoLOG) PER UNIT SC SCH (18:00)
[2021-05-05 18:25] VITALS: BP 162/79
[2021-05-05] MEDS ORDERED: LR 1,000 ML IV ONE ×2 (19:30→20:30)
[2021-05-05] MEDS: GABAPENTIN 100 MG CAP PO SCH (20:06)
[2021-05-05] MEDS: **hydrALAZINE** 50 MG TAB PO SCH (20:07)
[2021-05-05] MEDS: ATORVASTATIN 20 MG TAB PO SCH (20:07)
[2021-05-06 04:19] VITALS: BP 147/62
[2021-05-06 04:22] VITALS: BP 116/67
[2021-05-06] MEDS: LEVOTHYROXINE 75MCG TABLET (0.075MG) PO SCH (06:22)
[2021-05-06 06:38] LABS: BASO # 0.1 10^3/uL (0.0-0.2); BASO % 0.8 % (0.0-1.0); EOS # 0.8 10^3/uL (0.0-0.5); EOS % 9.5 % (0.0-3.0); HEMATOCRIT 24.3 % (36.0-47.0); HEMOGLOBIN 7.6 g/dl (12.0-15.5); LYMPH # 1.3 10^3/uL (1.5-5.0); LYMPH % 15.1 % (24.0-44.0); MEAN CORPUSCULAR HEMOGLOBIN 29.1 pg (27.0-33.0); MEAN CORPUSCULAR HGB CONC 31.3 g/dl (32.0-36.5); MEAN CORPUSCULAR VOLUME 93.1 fl (80.0-96.0); MONO # 0.8 10^3/uL (0.0-0.8); MONO % 8.9 % (2.0-8.0); NEUTROPHILS # 5.7 10^3/uL (1.5-8.5); NEUTROPHILS % 65.4 % (36.0-66.0); PLATELET COUNT, AUTOMATED 195 10^3/uL (150-450); RED BLOOD COUNT 2.61 10^6/uL (4.00-5.40); WHITE BLOOD COUNT 8.7 10^3/uL (4.0-10.0)
[2021-05-06] MEDS: HumaLOG INSULIN (NovoLOG) PER UNIT SC SCH ×5 (07:00→23:38)
[2021-05-06 07:03] LABS: ALBUMIN 1.9 GM/DL (3.2-5.2); ALT/SGPT 14 U/L (12-78); BILIRUBIN,TOTAL 0.3 MG/DL (0.2-1.0); BLOOD UREA NITROGEN 16 MG/DL (7-18); CALCIUM LEVEL 8.3 MG/DL (8.8-10.2); CARBON DIOXIDE LEVEL 28 MEQ/L (21-32); CHLORIDE LEVEL 110 MEQ/L (98-107); CREATININE FOR GFR 0.84 MG/DL (0.55-1.30); GLOMERULAR FILTRATION RATE > 60.0 (>39); GLUCOSE, FASTING 128 MG/DL (70-100); LIPASE 86 U/L (73-393); MAGNESIUM LEVEL 1.7 MG/DL (1.8-2.4); PHOSPHORUS LEVEL 3.5 MG/DL (2.5-4.9); POTASSIUM SERUM 3.8 MEQ/L (3.5-5.1); SODIUM LEVEL 142 MEQ/L (136-145); TOTAL PROTEIN 4.2 GM/DL (6.4-8.2)
[2021-05-06] MEDS ORDERED: FUROSEMIDE 20MG/2ML VIAL (J1940) IV ONE (07:30)
[2021-05-06] MEDS: DULoxetine 30MG CAPSULE (CYMBALTA) PO SCH (08:08)
[2021-05-06] MEDS: ENOXAPARIN 40MG/0.4ML SYRINGE (J1650 PER 10MG) SC SCH (08:08)
[2021-05-06] MEDS: MAG SULF 1GM/100ML (MAG RUN) 1 GM in IV 1 EA IV SCH ×2 (08:09→08:15)
[2021-05-06] MEDS: **hydrALAZINE** 50 MG TAB PO SCH ×2 (08:11→19:56)
[2021-05-06] MEDS ORDERED: IRON SUCROSE 200 MG in NS 100 ML IV ONE (11:00)
[2021-05-06] MEDS ORDERED: LR 1,000 ML IV SCH (11:35)
[2021-05-06 12:28] VITALS: BP 118/56
[2021-05-06 14:00] VITALS: BP 141/65
[2021-05-06] MEDS: LACTOBACILLUS ACIDOPHILUS CAP (BACID) PO SCH (17:29)
[2021-05-06] MEDS: ADVAIR HFA 45/21MCG INHALER INH SCH (19:04)
[2021-05-06 19:09] VITALS: BP 94/56
[2021-05-06] MEDS: GABAPENTIN 100 MG CAP PO SCH (19:54)
[2021-05-06] MEDS: ATORVASTATIN 20 MG TAB PO SCH (19:54)
[2021-05-06] MEDS ORDERED: LEVEMIR (INSULIN DETEMIR) 1 UNITS/0.01ML SC SCH (21:00)
[2021-05-06] MEDS ORDERED: HumaLOG INSULIN (NovoLOG) PER UNIT SC SCH (21:00)
[2021-05-07] MEDS: LEVOTHYROXINE 75MCG TABLET (0.075MG) PO SCH (05:13)
[2021-05-07 06:00] VITALS: BP 125/59
[2021-05-07] MEDS: metroNIDAZOLE (FLAGYL) 500MG TABLET PO SCH ×3 (06:00→20:47)
[2021-05-07] MEDS: HumaLOG INSULIN (NovoLOG) PER UNIT SC SCH ×3 (06:00→18:25)
[2021-05-07 06:14] LABS: BASO # 0.1 10^3/uL (0.0-0.2); EOS # 0.8 10^3/uL (0.0-0.5); EOS % 9.6 % (0.0-3.0); HEMOGLOBIN 7.9 g/dl (12.0-15.5); LYMPH # 1.1 10^3/uL (1.5-5.0); LYMPH % 13.8 % (24.0-44.0); MEAN CORPUSCULAR HGB CONC 31.6 g/dl (32.0-36.5); MEAN CORPUSCULAR VOLUME 91.9 fl (80.0-96.0); MONO # 0.8 10^3/uL (0.0-0.8); MONO % 9.8 % (2.0-8.0); NEUTROPHILS # 5.4 10^3/uL (1.5-8.5); NEUTROPHILS % 65.3 % (36.0-66.0); PLATELET COUNT, AUTOMATED 187 10^3/uL (150-450); RED BLOOD COUNT 2.72 10^6/uL (4.00-5.40); WHITE BLOOD COUNT 8.3 10^3/uL (4.0-10.0)
[2021-05-07 06:42] LABS: ALBUMIN 2.2 GM/DL (3.2-5.2); BILIRUBIN,TOTAL 0.6 MG/DL (0.2-1.0); CALCIUM LEVEL 8.4 MG/DL (8.8-10.2); CREATININE FOR GFR 1.26 MG/DL (0.55-1.30); GLOMERULAR FILTRATION RATE 44.1 (>39); MAGNESIUM LEVEL 2.2 MG/DL (1.8-2.4); PHOSPHORUS LEVEL 4.2 MG/DL (2.5-4.9); TOTAL PROTEIN 4.8 GM/DL (6.4-8.2)
[2021-05-07] MEDS: ADVAIR HFA 45/21MCG INHALER INH SCH ×2 (07:30→18:15)
[2021-05-07 08:02] LABS: FOLATE 19.9 NG/ML; VITAMIN B12 LEVEL 324 PG/ML
[2021-05-07] MEDS: DULoxetine 30MG CAPSULE (CYMBALTA) PO SCH (08:52)
[2021-05-07] MEDS: LACTOBACILLUS ACIDOPHILUS CAP (BACID) PO SCH (08:53)
[2021-05-07] MEDS: **hydrALAZINE** 50 MG TAB PO SCH ×2 (08:53→19:31)
[2021-05-07] MEDS: ENOXAPARIN 40MG/0.4ML SYRINGE (J1650 PER 10MG) SC SCH (08:54)
[2021-05-07] MEDS: PERCOCET 5MG/325MG TAB PO PRN (09:01)
[2021-05-07] MEDS: CIPROFLOXACIN 500MG TABLET PO SCH ×2 (11:37→18:25)
[2021-05-07 14:00] VITALS: BP 118/52
[2021-05-07 20:34] VITALS: BP 113/50
[2021-05-07] MEDS: ATORVASTATIN 20 MG TAB PO SCH (20:47)
[2021-05-07] MEDS: GABAPENTIN 100 MG CAP PO SCH (20:47)
[2021-05-07] MEDS: hydrOXYzine 10 MG TAB PO PRN (20:47)
[2021-05-08 04:33] VITALS: BP 126/61
[2021-05-08] MEDS: ADVAIR HFA 45/21MCG INHALER INH SCH ×2 (05:38→20:12)
[2021-05-08] MEDS: LEVOTHYROXINE 75MCG TABLET (0.075MG) PO SCH (05:47)
[2021-05-08] MEDS: CIPROFLOXACIN 500MG TABLET PO SCH ×2 (05:47→18:02)
[2021-05-08] MEDS: metroNIDAZOLE (FLAGYL) 500MG TABLET PO SCH ×3 (05:47→21:31)
[2021-05-08] MEDS: HumaLOG INSULIN (NovoLOG) PER UNIT SC SCH ×4 (06:00→17:22)
[2021-05-08 06:52] LABS: ALBUMIN 2.2 GM/DL (3.2-5.2); BILIRUBIN,TOTAL 0.7 MG/DL (0.2-1.0); CALCIUM LEVEL 8.5 MG/DL (8.8-10.2); CREATININE FOR GFR 1.43 MG/DL (0.55-1.30); GLOMERULAR FILTRATION RATE 38.1 (>39); PHOSPHORUS LEVEL 4.2 MG/DL (2.5-4.9); POTASSIUM SERUM 3.8 MEQ/L (3.5-5.1); TOTAL PROTEIN 4.6 GM/DL (6.4-8.2)
[2021-05-08] MEDS: LACTOBACILLUS ACIDOPHILUS CAP (BACID) PO SCH (08:49)
[2021-05-08] MEDS: DULoxetine 30MG CAPSULE (CYMBALTA) PO SCH (08:49)
[2021-05-08] MEDS: ENOXAPARIN 40MG/0.4ML SYRINGE (J1650 PER 10MG) SC SCH ×2 (08:50→09:00)
[2021-05-08] MEDS: **hydrALAZINE** 50 MG TAB PO SCH ×2 (08:50→21:29)
[2021-05-08] MEDS ORDERED: LOPERAMIDE 2 MG CAPLET PO PRN (10:25)
[2021-05-08] MEDS: NS 0.45% 1,000 ML IV SCH ×2 (10:40→21:28)
[2021-05-08 11:11] LABS: HEMATOCRIT 24.5 % (36.0-47.0)
[2021-05-08 14:00] VITALS: BP 122/61
[2021-05-08 18:00] VITALS: BP 123/61
[2021-05-08 19:26] LABS: CALCIUM LEVEL 8.4 MG/DL (8.8-10.2); CREATININE FOR GFR 1.58 MG/DL (0.55-1.30); GLOMERULAR FILTRATION RATE 33.9 (>39); POTASSIUM SERUM 3.7 MEQ/L (3.5-5.1)
[2021-05-08] MEDS: ATORVASTATIN 20 MG TAB PO SCH (21:30)
[2021-05-08] MEDS: GABAPENTIN 100 MG CAP PO SCH (21:30)
[2021-05-08] MEDS: hydrOXYzine 10 MG TAB PO PRN (21:32)
[2021-05-09] MEDS ORDERED: RAMELTEON 8 MG TAB (ROZEREM) PO PRN (02:25)
[2021-05-09 05:20] VITALS: BP 113/52
[2021-05-09] MEDS: CIPROFLOXACIN 500MG TABLET PO SCH ×2 (05:53→17:04)
[2021-05-09] MEDS: LEVOTHYROXINE 75MCG TABLET (0.075MG) PO SCH (05:53)
[2021-05-09] MEDS: metroNIDAZOLE (FLAGYL) 500MG TABLET PO SCH ×3 (05:53→23:48)
[2021-05-09] MEDS: HumaLOG INSULIN (NovoLOG) PER UNIT SC SCH ×5 (06:00→23:59)
[2021-05-09] MEDS ORDERED: NS 500 ML IV ONE (08:25)
[2021-05-09] MEDS ORDERED: NS 0.45% 1,000 ML IV SCH (08:25)
[2021-05-09] MEDS ORDERED: IPRATROPIUM 0.5MG/ALBUTEROL 2.5MG INH SOL UD 3ML (DUONEB) NEB ONE (08:35)
[2021-05-09] MEDS: ENOXAPARIN 30MG/0.3ML SYRINGE (J1650 PER 10MG) SC SCH (09:00)
[2021-05-09] MEDS: LACTOBACILLUS ACIDOPHILUS CAP (BACID) PO SCH (09:00)
[2021-05-09] MEDS: DULoxetine 30MG CAPSULE (CYMBALTA) PO SCH (09:00)
[2021-05-09] MEDS: guaiFENesin ER 600 MG TAB PO SCH ×2 (09:00→20:09)
[2021-05-09] MEDS: **hydrALAZINE** 50 MG TAB PO SCH ×2 (09:00→21:00)
[2021-05-09 09:30] VITALS: O2SAT 86
[2021-05-09 09:31] LABS: CALCIUM LEVEL 8.6 MG/DL (8.8-10.2); CREATININE FOR GFR 1.49 MG/DL (0.55-1.30); GLOMERULAR FILTRATION RATE 36.3 (>39); POTASSIUM SERUM 3.7 MEQ/L (3.5-5.1)
[2021-05-09 09:45] VITALS: O2SAT 90
[2021-05-09] MEDS: ADVAIR HFA 45/21MCG INHALER INH SCH ×2 (10:00→19:21)
[2021-05-09] MEDS ORDERED: FUROSEMIDE 40MG/4ML VIAL (J1940) IV ONE (11:15)
[2021-05-09 12:00] VITALS: O2SAT 90
[2021-05-09 12:42] LABS: CALCIUM LEVEL 8.4 MG/DL (8.8-10.2); CREATININE FOR GFR 1.46 MG/DL (0.55-1.30); GLOMERULAR FILTRATION RATE 37.2 (>39); POTASSIUM SERUM 3.7 MEQ/L (3.5-5.1)
[2021-05-09 14:00] VITALS: BP 123/59
[2021-05-09] MEDS ORDERED: POLYVINYL ALCOHOL OPHTH SOLN 15 ML(LIQUITEARS) OU ONE (15:00)
[2021-05-09] MEDS: POLYVINYL ALCOHOL OPHTH SOLN 15 ML(LIQUITEARS) OU SCH ×2 (17:04→20:10)
[2021-05-09 17:09] LABS: CALCIUM LEVEL 8.7 MG/DL (8.8-10.2); CREATININE FOR GFR 1.46 MG/DL (0.55-1.30); GLOMERULAR FILTRATION RATE 37.2 (>39); POTASSIUM SERUM 4.1 MEQ/L (3.5-5.1)
[2021-05-09 18:30] VITALS: BP 127/62
[2021-05-09] MEDS: ATORVASTATIN 20 MG TAB PO SCH (20:09)
[2021-05-09] MEDS: GABAPENTIN 100 MG CAP PO SCH (20:09)
[2021-05-10] MEDS: IPRATROPIUM 0.5MG/ALBUTEROL 2.5MG INH SOL UD 3ML (DUONEB) NEB PRN ×3 (02:12→13:20)
[2021-05-10] MEDS: CIPROFLOXACIN 500MG TABLET PO SCH ×2 (05:57→18:04)
[2021-05-10] MEDS: LEVOTHYROXINE 75MCG TABLET (0.075MG) PO SCH (05:58)
[2021-05-10] MEDS: metroNIDAZOLE (FLAGYL) 500MG TABLET PO SCH ×3 (05:58→22:06)
[2021-05-10] MEDS: HumaLOG INSULIN (NovoLOG) PER UNIT SC SCH ×3 (06:00→18:00)
[2021-05-10 06:10] VITALS: BP 122/64
[2021-05-10] MEDS: ADVAIR HFA 45/21MCG INHALER INH SCH (07:34)
[2021-05-10] MEDS ORDERED: FUROSEMIDE 20MG/2ML VIAL (J1940) IV ONE (08:25)
[2021-05-10] MEDS: CIPROFLOXACIN 0.3% OPHTH OINTMENT OU SCH ×3 (09:00→20:37)
[2021-05-10] MEDS: ENOXAPARIN 30MG/0.3ML SYRINGE (J1650 PER 10MG) SC SCH (09:00)
[2021-05-10] MEDS: LACTOBACILLUS ACIDOPHILUS CAP (BACID) PO SCH (09:15)
[2021-05-10] MEDS: DULoxetine 30MG CAPSULE (CYMBALTA) PO SCH (09:15)
[2021-05-10] MEDS: guaiFENesin ER 600 MG TAB PO SCH ×2 (09:15→20:36)
[2021-05-10] MEDS: POLYVINYL ALCOHOL OPHTH SOLN 15 ML(LIQUITEARS) OU SCH ×4 (09:15→20:37)
[2021-05-10] MEDS: **hydrALAZINE** 50 MG TAB PO SCH ×2 (09:17→21:00)
[2021-05-10 13:10] VITALS: O2SAT 82
[2021-05-10 13:24] VITALS: O2SAT 90
[2021-05-10 18:00] VITALS: BP 132/59
[2021-05-10] MEDS: ATORVASTATIN 20 MG TAB PO SCH (20:36)
[2021-05-10] MEDS: GABAPENTIN 100 MG CAP PO SCH (20:37)
[2021-05-11] VITALS (10 sets, daily range): BP systolic 124–151; BP diastolic 55–80
[2021-05-11] MEDS: IPRATROPIUM 0.5MG/ALBUTEROL 2.5MG INH SOL UD 3ML (DUONEB) NEB PRN (03:36)
[2021-05-11] MEDS: metroNIDAZOLE (FLAGYL) 500MG TABLET PO SCH ×2 (05:29→14:31)
[2021-05-11] MEDS: LEVOTHYROXINE 75MCG TABLET (0.075MG) PO SCH (05:29)
[2021-05-11] MEDS: CIPROFLOXACIN 500MG TABLET PO SCH ×2 (05:29→17:41)
[2021-05-11] MEDS: HumaLOG INSULIN (NovoLOG) PER UNIT SC SCH ×4 (06:00→18:00)
[2021-05-11] MEDS: ADVAIR HFA 45/21MCG INHALER INH SCH ×2 (07:18→20:18)
[2021-05-11 07:40] LABS: HEMATOCRIT 24.2 % (36.0-47.0); HEMOGLOBIN 7.7 g/dl (12.0-15.5); MEAN CORPUSCULAR HEMOGLOBIN 29.5 pg (27.0-33.0); MEAN CORPUSCULAR HGB CONC 31.8 g/dl (32.0-36.5); MEAN CORPUSCULAR VOLUME 92.7 fl (80.0-96.0); PLATELET COUNT, AUTOMATED 171 10^3/uL (150-450); RED BLOOD COUNT 2.61 10^6/uL (4.00-5.40); WHITE BLOOD COUNT 8.1 10^3/uL (4.0-10.0)
[2021-05-11 08:24] LABS: ALBUMIN 2.2 GM/DL (3.2-5.2); CALCIUM LEVEL 8.5 MG/DL (8.8-10.2); CREATININE FOR GFR 1.23 MG/DL (0.55-1.30); GLOMERULAR FILTRATION RATE 45.3 (>39); MAGNESIUM LEVEL 1.5 MG/DL (1.8-2.4); PHOSPHORUS LEVEL 3.1 MG/DL (2.5-4.9)
[2021-05-11 08:58] LABS: HEMATOCRIT 25.2 % (36.0-47.0)
[2021-05-11] MEDS: ENOXAPARIN 30MG/0.3ML SYRINGE (J1650 PER 10MG) SC SCH (09:00)
[2021-05-11] MEDS ORDERED: POTASSIUM CHLORIDE 10MEQ SR TABLET PO ONE (09:30)
[2021-05-11 09:31] LABS: CK-MB VALUE MASS 3.6 NG/ML (<3.6); MB/CK RELATIVE INDEX 5.62 (< OR =4)
[2021-05-11] MEDS: guaiFENesin ER 600 MG TAB PO SCH (10:30)
[2021-05-11] MEDS: DULoxetine 30MG CAPSULE (CYMBALTA) PO SCH (10:30)
[2021-05-11] MEDS: CIPROFLOXACIN 0.3% OPHTH OINTMENT OU SCH ×2 (10:31→14:31)
[2021-05-11] MEDS: POLYVINYL ALCOHOL OPHTH SOLN 15 ML(LIQUITEARS) OU SCH ×3 (10:31→17:41)
[2021-05-11] MEDS: LACTOBACILLUS ACIDOPHILUS CAP (BACID) PO SCH (10:31)
[2021-05-11] MEDS: **hydrALAZINE** 50 MG TAB PO SCH (10:34)
[2021-05-11] MEDS ORDERED: MAG SULF 1GM/100ML (MAG RUN) 1 GM in IV 1 EA IV ONE (11:00)
[2021-05-11 11:54] LABS: PH BODY FLUID 7.748 UNITS (NOT ESTABLISHED); SOURCE, BODY FLUID pH PLEURAL
[2021-05-11 12:01] LABS: APPEARANCE, BODY FLUID HAZY (CLEAR); PLEURAL FL COLOR PINK (COLORLESS); SOURCE, BODY FLUID PLEURAL
[2021-05-11 12:14] LABS: AMYLASE, BODY FLUID 17 U/L (NOT ESTABLISHED); LDH, BODY FLUID 37 U/L (NOT ESTABLISHED); SOURCE, BODY FLUID AMYLASE PLEURAL; SOURCE, BODY FLUID GLUCOSE PLEURAL; SOURCE, BODY FLUID LDH PLEURAL; SOURCE, BODY FLUID TOT PROTEIN PLEURAL; TOTAL PROTEIN, BODY FLUID 0.8 G/DL (NOT ESTABLISHED)
[2021-05-11 14:47] LABS: MAGNESIUM LEVEL 1.8 MG/DL (1.8-2.4); POTASSIUM SERUM 3.3 MEQ/L (3.5-5.1); TOTAL PROTEIN 4.9 GM/DL (6.4-8.2)
[2021-05-11] MEDS: PERCOCET 5MG/325MG TAB PO PRN (15:25)
[2021-05-11 19:27] LABS: HEMATOCRIT 29.9 % (36.0-47.0); HEMOGLOBIN 9.6 g/dl (12.0-15.5)
== END 2021-05-11 23:00 | disposition left against medical advice (07) | DRG 438 ==
LOC: EDBD 07:36 → M ED 07:36 → M ED INP 13:27 → M MSPAV 18:25
PROVIDERS: ADMIT Internal Medicine; ATTEND General Practice
PROC: 30233N1 Transfusion of Nonautologous Red Blood Cells into Peripheral Vein, Percutaneous Approach (ICD-10-PCS; 2021-05-11)
PROC: 0W9B3ZX Drainage of Left Pleural Cavity, Percutaneous Approach, Diagnostic (ICD-10-PCS; principal; 2021-05-11 11:00)
DX: K85.90 Acute pancreatitis without necrosis or infection, unspecified (principal); G93.41 Metabolic encephalopathy; S32.501A Unspecified fracture of right pubis, initial encounter for closed fracture; J96.11 Chronic respiratory failure with hypoxia; I13.0 Hypertensive heart and chronic kidney disease with heart failure and stage 1 through stage 4 chronic kidney disease, or unspecified chronic kidney disease; Q45.3 Other congenital malformations of pancreas and pancreatic duct; I50.42 Chronic combined systolic (congestive) and diastolic (congestive) heart failure; N17.9 Acute kidney failure, unspecified; J90 Pleural effusion, not elsewhere classified; X58.XXXA Exposure to other specified factors, initial encounter; Y92.9 Unspecified place or not applicable; Y93.9 Activity, unspecified; Y99.9 Unspecified external cause status; J44.9 Chronic obstructive pulmonary disease, unspecified; M48.00 Spinal stenosis, site unspecified; E11.51 Type 2 diabetes mellitus with diabetic peripheral angiopathy without gangrene; E11.22 Type 2 diabetes mellitus with diabetic chronic kidney disease; N18.30 Chronic kidney disease, stage 3 unspecified; E78.5 Hyperlipidemia, unspecified; E03.9 Hypothyroidism, unspecified; F41.9 Anxiety disorder, unspecified; F32.A Depression, unspecified; D64.9 Anemia, unspecified; R91.1 Solitary pulmonary nodule; E11.649 Type 2 diabetes mellitus with hypoglycemia without coma; F17.200 Nicotine dependence, unspecified, uncomplicated; K52.9 Noninfective gastroenteritis and colitis, unspecified; E87.6 Hypokalemia; I16.0 Hypertensive urgency; Z91.19 Patient's noncompliance with other medical treatment and regimen; Z95.820 Peripheral vascular angioplasty status with implants and grafts; Z98.41 Cataract extraction status, right eye; Z98.42 Cataract extraction status, left eye; Z79.4 Long term (current) use of insulin; Z79.899 Other long term (current) drug therapy; Z88.2 Allergy status to sulfonamides; Z88.5 Allergy status to narcotic agent; Z88.8 Allergy status to other drugs, medicaments and biological substances; Z91.048 Other nonmedicinal substance allergy status; Z99.81 Dependence on supplemental oxygen; Z85.51 Personal history of malignant neoplasm of bladder

== ENCOUNTER 2021-07-01 21:46 | Emergency (ER) | payer MEDICARE ==
[2021-07-02 00:30] VITALS: BP 157/71
== END 2021-07-02 01:01 | disposition home or self-care (01) ==
LOC: M ED 21:46 → EDBD 21:46 → M ED 07-02 01:01
DX: R06.02 Shortness of breath (principal); J90 Pleural effusion, not elsewhere classified; I13.0 Hypertensive heart and chronic kidney disease with heart failure and stage 1 through stage 4 chronic kidney disease, or unspecified chronic kidney disease; I50.9 Heart failure, unspecified; J44.9 Chronic obstructive pulmonary disease, unspecified; E03.9 Hypothyroidism, unspecified; F17.210 Nicotine dependence, cigarettes, uncomplicated; Z88.2 Allergy status to sulfonamides; Z88.8 Allergy status to other drugs, medicaments and biological substances; Z79.890 Hormone replacement therapy; Z79.899 Other long term (current) drug therapy

== ENCOUNTER 2021-07-20 11:53 | Inpatient (IN) | payer OTHER ==
[~2021-07-20] VITALS: Ht 157.5 cm; Wt 46.1 kg
[~2021-07-20 11:53] MED LIST changes: +ALBU2.5V10 INH; +ALBU2.5V10 NEB; -ALBU83IN INH; -ALBU83IN NEB
[2021-07-20] MEDS ORDERED: ELIQ5TAB PO (12:13)
[2021-07-20 13:58] LABS: BASO # 0.1 10^3/uL (0.0-0.2); BASO % 1.1 % (0.0-1.0); EOS # 0.3 10^3/uL (0.0-0.5); EOS % 2.6 % (0.0-3.0); HEMOGLOBIN 11.6 g/dl (12.0-15.5); MEAN CORPUSCULAR HEMOGLOBIN 30.4 pg (27.0-33.0); MEAN CORPUSCULAR HGB CONC 32.2 g/dl (32.0-36.5); MEAN CORPUSCULAR VOLUME 94.5 fl (80.0-96.0); MONO # 0.5 10^3/uL (0.0-0.8); MONO % 4.5 % (2.0-8.0); NEUTROPHILS % 81.6 % (36.0-66.0); PLATELET COUNT, AUTOMATED 219 10^3/uL (150-450); RED BLOOD COUNT 3.81 10^6/uL (4.00-5.40)
[2021-07-20 14:19] LABS: RSV AMPLIFICATION NEGATIVE (NEGATIVE)
[2021-07-20 14:28] LABS: BILIRUBIN,DIRECT 0.2 MG/DL (0.0-0.2); BILIRUBIN,TOTAL 0.3 MG/DL (0.2-1.0); TOTAL PROTEIN 5.9 GM/DL (6.4-8.2)
[2021-07-20 14:45] LABS: CK-MB VALUE MASS 2.4 NG/ML (<3.6); MB/CK RELATIVE INDEX 1.14 (< OR =4)
[2021-07-20 16:27] LABS: CK-MB VALUE MASS 2.7 NG/ML (<3.6); MB/CK RELATIVE INDEX 2.06 (< OR =4)
[2021-07-20] MEDS ORDERED: GABAPENTIN 100 MG CAP PO SCH (17:00)
[2021-07-20] MEDS ORDERED: ATORVASTATIN 20 MG TAB PO SCH (17:00)
[2021-07-20 17:07] LABS: ABG BASE EXCESS 2.3 (-2.0-2.0); ABG HCO3 27.4 MEQ/L (22.0-26.0); ABG O2 SATURATION 88.5 % (95.0-99.0); ABG PARTIAL PRESSURE CO2 44.5 mmHg (35.0-45.0); ABG PARTIAL PRESSURE O2 55.5 mmHg (75.0-100.0); ABG STANDARD HCO3 26.4 MEQ/L (22.0-26.0); ABG TOTAL CO2 28.8 MEQ/L (23.0-31.0); ABG pH (ARTERIAL) 7.407 UNITS (7.350-7.450)
[2021-07-20] MEDS ORDERED: HOME MED LIST COMPLETE! XX SCH (17:55)
[2021-07-20] MEDS ORDERED: ALBUTEROL 90 MCG/ACT 8GM HFA INHALER INH PRN (18:10)
[2021-07-20] MEDS: **hydrALAZINE** 50 MG TAB PO SCH (18:46)
[2021-07-20] MEDS: NICOTINE 21MG/24HR 1 EA TRANSDERMAL TD ONE ×2 (18:47→18:54)
[2021-07-20 19:55] LABS: C REACTIVE PROTEIN QUANTITATIV 0.68 MG/DL (0.00-0.30); FREE T4 0.92 NG/DL (0.76-1.46); THYROID STIMULATING HORMONE 9.48 uIU/ML (0.358-3.740)
[2021-07-20 20:15] VITALS: BP 119/71
[2021-07-20] MEDS ORDERED: GLUCAGON INJ 1MG VIAL SC PRN (20:40)
[2021-07-20] MEDS ORDERED: DEXTROSE 50% 50 ML SYRINGE IV PRN (20:40)
[2021-07-20] MEDS ORDERED: GLUCOSE 4GM CHEW TABLET PO PRN (20:40)
[2021-07-20] MEDS ORDERED: INSULIN LISPRO (NovoLOG) PER UNIT SC SCH (21:00)
[2021-07-20] MEDS ORDERED: APIXABAN 5 MG TAB (ELIQUIS) PO SCH (21:00)
[2021-07-20] MEDS ORDERED: LEVEMIR (INSULIN DETEMIR) 1 UNITS/0.01ML SC SCH (22:00)
[2021-07-20] MEDS: methylPREDNISolone 40MG 1ML VIAL IV SCH (22:30)
[2021-07-20] MEDS: ADVAIR HFA 230/21MCG INHALER INH SCH (23:03)
[2021-07-20] MEDS: IPRATROPIUM 0.5MG/ALBUTEROL 2.5MG INH SOL UD 3ML (DUONEB) NEB SCH (23:03)
[2021-07-20] MEDS ORDERED: diphenhydrAMINE 50MG/ML VIAL (J1200) IV PRN (23:10)
[2021-07-20] MEDS ORDERED: CIPROFLOXACIN 0.3% OPHTH SOLN 2.5ML OU ONE (23:15)
[2021-07-20] MEDS ORDERED: ERYTHROMYCIN OPHTH OINT OU ONE (23:55)
[2021-07-21] MEDS: IPRATROPIUM 0.5MG/ALBUTEROL 2.5MG INH SOL UD 3ML (DUONEB) NEB SCH ×3 (02:00→13:06)
[2021-07-21] MEDS: methylPREDNISolone 40MG 1ML VIAL IV SCH ×2 (04:46→12:46)
[2021-07-21 06:00] VITALS: BP 109/57
[2021-07-21] MEDS ORDERED: LEVOTHYROXINE 75MCG TABLET (0.075MG) PO SCH (06:00)
[2021-07-21 06:39] LABS: HEMATOCRIT 30.8 % (36.0-47.0); HEMOGLOBIN 10.1 g/dl (12.0-15.5); MEAN CORPUSCULAR HEMOGLOBIN 30.3 pg (27.0-33.0); MEAN CORPUSCULAR HGB CONC 32.8 g/dl (32.0-36.5); MEAN CORPUSCULAR VOLUME 92.5 fl (80.0-96.0); PLATELET COUNT, AUTOMATED 229 10^3/uL (150-450); RED BLOOD COUNT 3.33 10^6/uL (4.00-5.40)
[2021-07-21 07:09] LABS: ALBUMIN 1.9 GM/DL (3.2-5.2); ALT/SGPT 12 U/L (12-78); BILIRUBIN,TOTAL 0.2 MG/DL (0.2-1.0); BLOOD UREA NITROGEN 15 MG/DL (7-18); CALCIUM LEVEL 8.8 MG/DL (8.8-10.2); CARBON DIOXIDE LEVEL 27 MEQ/L (21-32); CHLORIDE LEVEL 112 MEQ/L (98-107); CREATININE FOR GFR 0.96 MG/DL (0.55-1.30); GLOMERULAR FILTRATION RATE > 60.0 (>39); GLUCOSE, FASTING 35 MG/DL (70-100); MAGNESIUM LEVEL 1.9 MG/DL (1.8-2.4); POTASSIUM SERUM 3.7 MEQ/L (3.5-5.1); SODIUM LEVEL 147 MEQ/L (136-145); TOTAL PROTEIN 5.5 GM/DL (6.4-8.2)
[2021-07-21 07:24] VITALS: BP 109/57
[2021-07-21] MEDS: **hydrALAZINE** 50 MG TAB PO SCH (07:24)
[2021-07-21] MEDS: INSULIN LISPRO (NovoLOG) PER UNIT SC SCH ×2 (07:27→12:50)
[2021-07-21] MEDS: ADVAIR HFA 230/21MCG INHALER INH SCH (08:00)
[2021-07-21] MEDS ORDERED: LACTOBACILLUS ACIDOPHILUS CAP (BACID) PO SCH (09:00)
[2021-07-21] MEDS ORDERED: ENOXAPARIN 40MG/0.4ML SYRINGE (J1650 PER 10MG) SC SCH ×2 (09:00)
[2021-07-21] MEDS ORDERED: DULoxetine 30MG CAPSULE (CYMBALTA) PO SCH (09:00)
[2021-07-21] MEDS ORDERED: LEVEMIR (INSULIN DETEMIR) 1 UNITS/0.01ML SC SCH (21:00)
== END 2021-07-21 16:30 | disposition left against medical advice (07) | DRG 189 ==
LOC: EDBD 11:53 → M ED 11:53 → M ED INP 17:59 → M MS5PR 20:15
PROVIDERS: ADMIT Internal Medicine; ATTEND Internal Medicine
DX: J96.21 Acute and chronic respiratory failure with hypoxia (principal); I13.0 Hypertensive heart and chronic kidney disease with heart failure and stage 1 through stage 4 chronic kidney disease, or unspecified chronic kidney disease; I50.22 Chronic systolic (congestive) heart failure; N17.9 Acute kidney failure, unspecified; J90 Pleural effusion, not elsewhere classified; J44.1 Chronic obstructive pulmonary disease with (acute) exacerbation; J96.11 Chronic respiratory failure with hypoxia; Y92.9 Unspecified place or not applicable; Y93.9 Activity, unspecified; Y99.9 Unspecified external cause status; M48.00 Spinal stenosis, site unspecified; E11.51 Type 2 diabetes mellitus with diabetic peripheral angiopathy without gangrene; E11.22 Type 2 diabetes mellitus with diabetic chronic kidney disease; N18.30 Chronic kidney disease, stage 3 unspecified; E78.5 Hyperlipidemia, unspecified; E03.9 Hypothyroidism, unspecified; F41.9 Anxiety disorder, unspecified; F32.A Depression, unspecified; R91.1 Solitary pulmonary nodule; E11.649 Type 2 diabetes mellitus with hypoglycemia without coma; F17.200 Nicotine dependence, unspecified, uncomplicated; K52.9 Noninfective gastroenteritis and colitis, unspecified; E87.6 Hypokalemia; Z91.19 Patient's noncompliance with other medical treatment and regimen; Z95.820 Peripheral vascular angioplasty status with implants and grafts; Z98.41 Cataract extraction status, right eye; Z98.42 Cataract extraction status, left eye; Z79.4 Long term (current) use of insulin; Z79.899 Other long term (current) drug therapy; Z88.2 Allergy status to sulfonamides; Z88.5 Allergy status to narcotic agent; Z88.8 Allergy status to other drugs, medicaments and biological substances; Z91.048 Other nonmedicinal substance allergy status; Z99.81 Dependence on supplemental oxygen; Z85.51 Personal history of malignant neoplasm of bladder

== ENCOUNTER 2021-07-24 13:17 | Observation (INO) | payer OTHER ==
[~2021-07-24] VITALS: Ht 157.5 cm; Wt 47.4 kg
[~2021-07-24 13:17] MED LIST changes: +ELIQ5TAB PO
[2021-07-24 17:14] LABS: BASO # 0.1 10^3/uL (0.0-0.2); BASO % 0.8 % (0.0-1.0); EOS # 0.4 10^3/uL (0.0-0.5); EOS % 4.8 % (0.0-3.0); HEMATOCRIT 30.2 % (36.0-47.0); HEMOGLOBIN 9.7 g/dl (12.0-15.5); LYMPH # 1.1 10^3/uL (1.5-5.0); LYMPH % 13.9 % (24.0-44.0); MEAN CORPUSCULAR HEMOGLOBIN 30.3 pg (27.0-33.0); MEAN CORPUSCULAR HGB CONC 32.1 g/dl (32.0-36.5); MEAN CORPUSCULAR VOLUME 94.4 fl (80.0-96.0); MONO # 0.5 10^3/uL (0.0-0.8); MONO % 6.8 % (2.0-8.0); NEUTROPHILS # 5.8 10^3/uL (1.5-8.5); NEUTROPHILS % 72.9 % (36.0-66.0); PLATELET COUNT, AUTOMATED 179 10^3/uL (150-450)
[2021-07-24 17:41] LABS: ALT/SGPT 18 U/L (12-78); BILIRUBIN,DIRECT 0.1 MG/DL (0.0-0.2); BILIRUBIN,TOTAL 0.2 MG/DL (0.2-1.0); LIPASE 138 U/L (73-393); TOTAL PROTEIN 5.2 GM/DL (6.4-8.2)
[2021-07-24 18:01] LABS: RSV AMPLIFICATION NEGATIVE (NEGATIVE)
[2021-07-24 18:49] LABS: BLOOD UREA NITROGEN 17 MG/DL (7-18); CALCIUM LEVEL 8.1 MG/DL (8.8-10.2); CARBON DIOXIDE LEVEL 29 MEQ/L (21-32); CHLORIDE LEVEL 112 MEQ/L (98-107); CREATININE FOR GFR 0.87 MG/DL (0.55-1.30); GLOMERULAR FILTRATION RATE > 60.0 (>39); GLUCOSE, FASTING 63 MG/DL (70-100); POTASSIUM SERUM 4.4 MEQ/L (3.5-5.1); SODIUM LEVEL 145 MEQ/L (136-145)
[2021-07-24] MEDS ORDERED: ISOVUE-370 76% 100ML VIAL As Ordered ONE (18:58)
[2021-07-24 22:41] LABS: NT-PRO BNP 41935 PG/ML (<450)
[2021-07-24 22:57] VITALS: BP 136/79
[2021-07-24] MEDS ORDERED: DEXTROSE 50% 50 ML SYRINGE IV PRN (23:10)
[2021-07-24] MEDS ORDERED: GLUCAGON INJ 1MG VIAL SC PRN (23:10)
[2021-07-24] MEDS ORDERED: ACETAMINOPHEN TAB 650MG DOSE (2X325MG) PO PRN (23:10)
[2021-07-24] MEDS ORDERED: ALBUTEROL 90 MCG/ACT 8GM HFA INHALER INH PRN (23:10)
[2021-07-24] MEDS ORDERED: GLUCOSE 4GM CHEW TABLET PO PRN (23:10)
[2021-07-24] MEDS ORDERED: NS 1,000 ML IV SCH (23:30)
[2021-07-24] MEDS ORDERED: DOXYCYCLINE HYCLATE 100MG TABLET PO STA (23:32)
[2021-07-24] MEDS ORDERED: TREL1AER INH (23:44)
[2021-07-24] MEDS ORDERED: ALBU2.5V10 INH (23:44)
[2021-07-24] MEDS ORDERED: BASA100I SC (23:44)
[2021-07-24] MEDS ORDERED: PATIENT COMMENT (23:48)
[2021-07-24] MEDS ORDERED: HOME MED LIST COMPLETE! XX SCH (23:50)
[2021-07-24] MEDS ORDERED: INSUDET SC (23:51)
[2021-07-25] MEDS: IPRATROPIUM 0.5MG/ALBUTEROL 2.5MG INH SOL UD 3ML (DUONEB) NEB SCH ×2 (02:00→08:00)
[2021-07-25 06:00] VITALS: BP 144/79
[2021-07-25] MEDS ORDERED: LEVOTHYROXINE 75MCG TABLET (0.075MG) PO SCH (06:00)
[2021-07-25 06:17] LABS: BLOOD UREA NITROGEN 15 MG/DL (7-18); CALCIUM LEVEL 7.8 MG/DL (8.8-10.2); CARBON DIOXIDE LEVEL 30 MEQ/L (21-32); CHLORIDE LEVEL 107 MEQ/L (98-107); CREATININE FOR GFR 0.81 MG/DL (0.55-1.30); GLOMERULAR FILTRATION RATE > 60.0 (>39); GLUCOSE, FASTING 108 MG/DL (70-100); POTASSIUM SERUM 3.8 MEQ/L (3.5-5.1); SODIUM LEVEL 141 MEQ/L (136-145)
[2021-07-25] MEDS: INSULIN LISPRO (NovoLOG) PER UNIT SC SCH ×2 (07:30→12:00)
[2021-07-25 07:40] LABS: CK-MB VALUE MASS 2.2 NG/ML (<3.6); MB/CK RELATIVE INDEX 6.29 (< OR =4)
[2021-07-25] MEDS ORDERED: TIOTROPIUM INHALER/CAPSULE (SPIRIVA) INH SCH (08:00)
[2021-07-25] MEDS ORDERED: ADVAIR HFA 230/21MCG INHALER INH SCH (08:00)
[2021-07-25] MEDS ORDERED: APIXABAN 5 MG TAB (ELIQUIS) PO SCH (09:00)
[2021-07-25] MEDS ORDERED: **hydrALAZINE** 50 MG TAB PO SCH (09:00)
[2021-07-25] MEDS ORDERED: DULoxetine 30MG CAPSULE (CYMBALTA) PO SCH (09:00)
[2021-07-25] MEDS ORDERED: ENOXAPARIN 40MG/0.4ML SYRINGE (J1650 PER 10MG) SC SCH (09:00)
[2021-07-25 09:42] VITALS: BP 145/77
[2021-07-25 10:38] LABS: MB/CK RELATIVE INDEX 4.23 (< OR =4)
[2021-07-25 13:18] LABS: CK-MB VALUE MASS 2.3 NG/ML (<3.6); MB/CK RELATIVE INDEX 5.9 (< OR =4)
[2021-07-25] MEDS ORDERED: ATORVASTATIN 20 MG TAB PO SCH (21:00)
[2021-07-25] MEDS ORDERED: LEVEMIR (INSULIN DETEMIR) 1 UNITS/0.01ML SC SCH (21:00)
[2021-07-25] MEDS ORDERED: DOXYCYCLINE HYCLATE 100MG TABLET PO SCH (21:00)
[2021-07-25] MEDS ORDERED: GABAPENTIN 100 MG CAP PO SCH (21:00)
[2021-07-25] MEDS ORDERED: INSULIN LISPRO (NovoLOG) PER UNIT SC SCH (21:00)
== END 2021-07-25 13:56 | disposition left against medical advice (07) ==
LOC: M ED 13:17 → EDBD 13:17 → M ED INP 21:57 → ENRESERV 22:12 → M MSPAV 22:39
PROVIDERS: ADMIT Internal Medicine; ATTEND Internal Medicine
DX: K52.9 Noninfective gastroenteritis and colitis, unspecified (principal); J44.1 Chronic obstructive pulmonary disease with (acute) exacerbation; J90 Pleural effusion, not elsewhere classified; J96.11 Chronic respiratory failure with hypoxia; Z99.81 Dependence on supplemental oxygen; R45.5 Hostility; Z91.19 Patient's noncompliance with other medical treatment and regimen; I50.22 Chronic systolic (congestive) heart failure; I13.0 Hypertensive heart and chronic kidney disease with heart failure and stage 1 through stage 4 chronic kidney disease, or unspecified chronic kidney disease; E11.22 Type 2 diabetes mellitus with diabetic chronic kidney disease; R07.1 Chest pain on breathing; F32.A Depression, unspecified; E03.9 Hypothyroidism, unspecified; I73.9 Peripheral vascular disease, unspecified; Z95.820 Peripheral vascular angioplasty status with implants and grafts; N18.30 Chronic kidney disease, stage 3 unspecified; E78.5 Hyperlipidemia, unspecified; R91.8 Other nonspecific abnormal finding of lung field; F41.9 Anxiety disorder, unspecified; Z86.711 Personal history of pulmonary embolism; Z86.718 Personal history of other venous thrombosis and embolism; F17.200 Nicotine dependence, unspecified, uncomplicated; Z79.899 Other long term (current) drug therapy; Z79.01 Long term (current) use of anticoagulants; Z79.4 Long term (current) use of insulin; Z79.890 Hormone replacement therapy; Z79.84 Long term (current) use of oral hypoglycemic drugs; Z88.8 Allergy status to other drugs, medicaments and biological substances; Z88.2 Allergy status to sulfonamides; Z88.5 Allergy status to narcotic agent; Z88.3 Allergy status to other anti-infective agents
CPT/HCPCS: 36415; 71046; 74177; 80047; 80048; 80076; 82550; 82553; 83605; 83690; 83880; 84484; 85025; 87631; 93005; 94760; 99285; G0378; Q9967

== ENCOUNTER 2021-08-05 11:59 | Inpatient (IN) | payer OTHER ==
[~2021-08-05] VITALS: Ht 157.5 cm; Wt 54.4 kg
[~2021-08-05 11:59] MED LIST changes: +TREL1AER INH
[2021-08-05 13:07] LABS: VENOUS BASE EXCESS 0.3 (-2.0-2.0); VENOUS HCO3 26.2 MEQ/L (23.0-27.0); VENOUS O2 SATURATION 68.9 % (60.0-80.0); VENOUS PARTIAL PRESSURE CO2 48.3 mmHg (38.0-50.0); VENOUS PARTIAL PRESSURE O2 39.2 mmHg (30.0-50.0); VENOUS PH 7.353 UNITS (7.330-7.430); VENOUS STANDARD HCO3 24.3 MEQ/L; VENOUS TOTAL CO2 27.7 MEQ/L (24.0-28.0)
[2021-08-05 13:10] LABS: BASO # 0.1 10^3/uL (0.0-0.2); EOS # 0.3 10^3/uL (0.0-0.5); EOS % 4.9 % (0.0-3.0); HEMATOCRIT 30.2 % (36.0-47.0); HEMOGLOBIN 9.7 g/dl (12.0-15.5); LYMPH # 1.2 10^3/uL (1.5-5.0); LYMPH % 17.4 % (24.0-44.0); MEAN CORPUSCULAR HEMOGLOBIN 30.9 pg (27.0-33.0); MEAN CORPUSCULAR HGB CONC 32.1 g/dl (32.0-36.5); MEAN CORPUSCULAR VOLUME 96.2 fl (80.0-96.0); MONO # 0.3 10^3/uL (0.0-0.8); MONO % 4.7 % (2.0-8.0); NEUTROPHILS # 4.9 10^3/uL (1.5-8.5); NEUTROPHILS % 71.9 % (36.0-66.0); PLATELET COUNT, AUTOMATED 182 10^3/uL (150-450); RED BLOOD COUNT 3.14 10^6/uL (4.00-5.40); WHITE BLOOD COUNT 6.8 10^3/uL (4.0-10.0)
[2021-08-05 13:52] LABS: ALT/SGPT 13 U/L (12-78); BILIRUBIN,DIRECT < 0.1 MG/DL (0.0-0.2); BILIRUBIN,TOTAL 0.1 MG/DL (0.2-1.0); BLOOD UREA NITROGEN 16 MG/DL (7-18); CALCIUM LEVEL 7.9 MG/DL (8.8-10.2); CARBON DIOXIDE LEVEL 30 MEQ/L (21-32); CHLORIDE LEVEL 109 MEQ/L (98-107); CREATININE FOR GFR 0.86 MG/DL (0.55-1.30); GLOMERULAR FILTRATION RATE > 60.0 (>39); GLUCOSE, FASTING 152 MG/DL (70-100); NT-PRO BNP 36930 PG/ML (<450); POTASSIUM SERUM 3.2 MEQ/L (3.5-5.1); SODIUM LEVEL 145 MEQ/L (136-145); TOTAL PROTEIN 5.1 GM/DL (6.4-8.2)
[2021-08-05] MEDS ORDERED: AZITHROMYCIN INJ 500 MG, VIAL MATE ADAPTER 1 EACH in NS 250 ML IV ONE (14:00)
[2021-08-05] MEDS ORDERED: cefTRIAXone SOD 1 GM in D5W MINI-BAG PLUS 50 ML IV ONE (14:00)
[2021-08-05] MEDS ORDERED: methylPREDNISolone 125MG 2ML VIAL IV ONE (14:35)
[2021-08-05] MEDS ORDERED: ELIQ5TAB PO (15:22)
[2021-08-05] MEDS ORDERED: HOME MED LIST COMPLETE! XX SCH (15:25)
[2021-08-05] MEDS ORDERED: ALBUTEROL SULFATE 2.5 MG/0.5 ML INH NEB SOLN NEB PRN (15:45)
[2021-08-05] MEDS ORDERED: MOM 30ML SUSPENSION UDC PO PRN (15:45)
[2021-08-05] MEDS ORDERED: HEPARIN SOD (PORCINE) 5000UNITS/ML 1ML VIAL/SYRINGE SC SCH (15:45)
[2021-08-05] MEDS ORDERED: ACETAMINOPHEN TAB 650MG DOSE (2X325MG) PO PRN (15:45)
[2021-08-05 16:13] LABS: FREE T4 0.71 NG/DL (0.76-1.46)
[2021-08-05] MEDS ORDERED: GLUCOSE 4GM CHEW TABLET PO PRN (16:55)
[2021-08-05] MEDS ORDERED: DEXTROSE 50% 50 ML SYRINGE IV PRN (16:55)
[2021-08-05] MEDS ORDERED: GLUCAGON INJ 1MG VIAL SC PRN (16:55)
[2021-08-05] MEDS: NICOTINE 21MG/24HR 1 EA TRANSDERMAL TD SCH (18:43)
[2021-08-05] MEDS: INSULIN LISPRO (NovoLOG) PER UNIT SC SCH ×2 (18:44→21:00)
[2021-08-05] MEDS: IPRATROPIUM 0.5MG/ALBUTEROL 2.5MG INH SOL UD 3ML (DUONEB) NEB SCH (19:39)
[2021-08-05] MEDS: ADVAIR HFA 230/21MCG INHALER INH SCH (19:39)
[2021-08-05] MEDS ORDERED: FUROSEMIDE 40MG/4ML VIAL (J1940) IV ONE (20:00)
[2021-08-05 20:11] VITALS: BP 120/55
[2021-08-05] MEDS ORDERED: methylPREDNISolone 125MG 2ML VIAL IV SCH (23:00)
[2021-08-05] MEDS: LEVEMIR (INSULIN DETEMIR) 1 UNITS/0.01ML SC SCH (23:32)
[2021-08-05] MEDS: APIXABAN 5 MG TAB (ELIQUIS) PO SCH (23:36)
[2021-08-05] MEDS: ATORVASTATIN 20 MG TAB PO SCH (23:36)
[2021-08-05] MEDS: GABAPENTIN 100 MG CAP PO SCH (23:37)
[2021-08-05] MEDS: **hydrALAZINE** 50 MG TAB PO SCH (23:37)
[2021-08-06] MEDS: IPRATROPIUM 0.5MG/ALBUTEROL 2.5MG INH SOL UD 3ML (DUONEB) NEB SCH ×4 (01:10→19:32)
[2021-08-06] MEDS: LEVOTHYROXINE 75MCG TABLET (0.075MG) PO SCH (06:00)
[2021-08-06 06:10] VITALS: BP 145/62
[2021-08-06 06:39] LABS: HEMATOCRIT 27.4 % (36.0-47.0); HEMOGLOBIN 9.1 g/dl (12.0-15.5); MEAN CORPUSCULAR HEMOGLOBIN 30.6 pg (27.0-33.0); MEAN CORPUSCULAR HGB CONC 33.2 g/dl (32.0-36.5); MEAN CORPUSCULAR VOLUME 92.3 fl (80.0-96.0); PLATELET COUNT, AUTOMATED 193 10^3/uL (150-450); RED BLOOD COUNT 2.97 10^6/uL (4.00-5.40); WHITE BLOOD COUNT 5.6 10^3/uL (4.0-10.0)
[2021-08-06 07:01] LABS: CREATININE FOR GFR 1.1 MG/DL (0.55-1.30); GLOMERULAR FILTRATION RATE 51.5 (>39); MAGNESIUM LEVEL 1.7 MG/DL (1.8-2.4); POTASSIUM SERUM 3.1 MEQ/L (3.5-5.1)
[2021-08-06] MEDS: ADVAIR HFA 230/21MCG INHALER INH SCH ×2 (07:19→19:32)
[2021-08-06] MEDS: INSULIN LISPRO (NovoLOG) PER UNIT SC SCH ×4 (07:25→21:00)
[2021-08-06] MEDS ORDERED: FUROSEMIDE 40MG/4ML VIAL (J1940) IV SCH ×2 (09:00→13:00)
[2021-08-06] MEDS: **hydrALAZINE** 50 MG TAB PO SCH ×2 (09:00→22:36)
[2021-08-06] MEDS ORDERED: POTASSIUM CHLORIDE 10MEQ SR TABLET PO ONE ×2 (09:05→13:00)
[2021-08-06] MEDS ORDERED: MAG SULF 1GM/100ML (MAG RUN) 1 GM in IV 1 EA IV ONE (09:10)
[2021-08-06] MEDS: APIXABAN 5 MG TAB (ELIQUIS) PO SCH ×2 (09:26→22:35)
[2021-08-06] MEDS: DULoxetine 30MG CAPSULE (CYMBALTA) PO SCH (09:26)
[2021-08-06] MEDS: NICOTINE 21MG/24HR 1 EA TRANSDERMAL TD SCH (09:27)
[2021-08-06 14:00] VITALS: BP 107/54
[2021-08-06] MEDS ORDERED: cefTRIAXone SOD 1 GM in D5W MINI-BAG PLUS 50 ML IV SCH (14:00)
[2021-08-06] MEDS ORDERED: AZITHROMYCIN INJ 500 MG, VIAL MATE ADAPTER 1 EACH in NS 250 ML IV SCH (15:00)
[2021-08-06] MEDS: LEVEMIR (INSULIN DETEMIR) 1 UNITS/0.01ML SC SCH (21:00)
[2021-08-06 21:46] VITALS: BP 122/55
[2021-08-06] MEDS: ATORVASTATIN 20 MG TAB PO SCH (22:36)
[2021-08-06] MEDS: GABAPENTIN 100 MG CAP PO SCH (22:37)
[2021-08-07] MEDS: IPRATROPIUM 0.5MG/ALBUTEROL 2.5MG INH SOL UD 3ML (DUONEB) NEB SCH ×5 (02:00→23:19)
[2021-08-07 06:00] VITALS: BP 162/64
[2021-08-07] MEDS: LEVOTHYROXINE 75MCG TABLET (0.075MG) PO SCH (06:05)
[2021-08-07] MEDS: ADVAIR HFA 230/21MCG INHALER INH SCH ×2 (07:19→20:00)
[2021-08-07] MEDS: INSULIN LISPRO (NovoLOG) PER UNIT SC SCH ×4 (10:07→20:45)
[2021-08-07] MEDS: NICOTINE 21MG/24HR 1 EA TRANSDERMAL TD SCH (10:08)
[2021-08-07] MEDS: DULoxetine 30MG CAPSULE (CYMBALTA) PO SCH (10:08)
[2021-08-07] MEDS: APIXABAN 5 MG TAB (ELIQUIS) PO SCH ×2 (10:09→22:29)
[2021-08-07] MEDS: **hydrALAZINE** 50 MG TAB PO SCH ×2 (10:09→22:05)
[2021-08-07 14:00] VITALS: BP 127/62
[2021-08-07 22:00] VITALS: BP 119/68
[2021-08-07] MEDS ORDERED: RAMELTEON 8 MG TAB (ROZEREM) PO PRN (22:05)
[2021-08-07] MEDS: LEVEMIR (INSULIN DETEMIR) 1 UNITS/0.01ML SC SCH (22:24)
[2021-08-07] MEDS: ATORVASTATIN 20 MG TAB PO SCH (22:28)
[2021-08-07] MEDS: GABAPENTIN 100 MG CAP PO SCH (22:29)
[2021-08-08 06:00] VITALS: BP 116/66
[2021-08-08] MEDS: LEVOTHYROXINE 75MCG TABLET (0.075MG) PO SCH (06:07)
[2021-08-08 06:32] LABS: HEMATOCRIT 25.8 % (36.0-47.0); HEMOGLOBIN 8.4 g/dl (12.0-15.5); MEAN CORPUSCULAR HEMOGLOBIN 31.2 pg (27.0-33.0); MEAN CORPUSCULAR HGB CONC 32.6 g/dl (32.0-36.5); MEAN CORPUSCULAR VOLUME 95.9 fl (80.0-96.0); PLATELET COUNT, AUTOMATED 163 10^3/uL (150-450); RED BLOOD COUNT 2.69 10^6/uL (4.00-5.40)
[2021-08-08 06:55] LABS: CALCIUM LEVEL 8.3 MG/DL (8.8-10.2); CREATININE FOR GFR 1.09 MG/DL (0.55-1.30); GLOMERULAR FILTRATION RATE 52.1 (>39)
[2021-08-08] MEDS: ADVAIR HFA 230/21MCG INHALER INH SCH (07:24)
[2021-08-08] MEDS: IPRATROPIUM 0.5MG/ALBUTEROL 2.5MG INH SOL UD 3ML (DUONEB) NEB SCH (07:25)
[2021-08-08 09:02] VITALS: BP 121/66
[2021-08-08] MEDS: **hydrALAZINE** 50 MG TAB PO SCH (09:02)
[2021-08-08] MEDS: APIXABAN 5 MG TAB (ELIQUIS) PO SCH (09:02)
[2021-08-08] MEDS: INSULIN LISPRO (NovoLOG) PER UNIT SC SCH ×2 (09:02→12:32)
[2021-08-08] MEDS: DULoxetine 30MG CAPSULE (CYMBALTA) PO SCH (09:03)
[2021-08-08] MEDS: NICOTINE 21MG/24HR 1 EA TRANSDERMAL TD SCH (09:03)
[2021-08-08] MEDS ORDERED: LOPERAMIDE 2 MG CAPLET PO ONE (10:55)
== END 2021-08-08 13:27 | disposition home or self-care (01) | DRG 291 ==
LOC: EDBD 11:59 → M ED 11:59 → M ED INP 15:44 → M MSPAV 20:11 → OBSVTOIN 08-06 09:08
PROVIDERS: ADMIT Internal Medicine; ATTEND Family Medicine
PROC: B246ZZZ Ultrasonography of Right and Left Heart (ICD-10-PCS; principal; 2021-08-06)
DX: I13.0 Hypertensive heart and chronic kidney disease with heart failure and stage 1 through stage 4 chronic kidney disease, or unspecified chronic kidney disease (principal); J18.9 Pneumonia, unspecified organism; I50.33 Acute on chronic diastolic (congestive) heart failure; J44.1 Chronic obstructive pulmonary disease with (acute) exacerbation; J96.11 Chronic respiratory failure with hypoxia; F17.210 Nicotine dependence, cigarettes, uncomplicated; Z99.81 Dependence on supplemental oxygen; Z91.19 Patient's noncompliance with other medical treatment and regimen; E11.51 Type 2 diabetes mellitus with diabetic peripheral angiopathy without gangrene; E78.5 Hyperlipidemia, unspecified; E03.9 Hypothyroidism, unspecified; I73.9 Peripheral vascular disease, unspecified; N18.30 Chronic kidney disease, stage 3 unspecified; E11.22 Type 2 diabetes mellitus with diabetic chronic kidney disease; M54.9 Dorsalgia, unspecified; M48.00 Spinal stenosis, site unspecified; Z85.51 Personal history of malignant neoplasm of bladder; R91.8 Other nonspecific abnormal finding of lung field; F41.9 Anxiety disorder, unspecified; M81.0 Age-related osteoporosis without current pathological fracture; Z95.828 Presence of other vascular implants and grafts; Z20.822 Contact with and (suspected) exposure to COVID-19; Z79.01 Long term (current) use of anticoagulants; Z79.4 Long term (current) use of insulin; Z79.84 Long term (current) use of oral hypoglycemic drugs; Z79.899 Other long term (current) drug therapy; Z88.1 Allergy status to other antibiotic agents; Z88.2 Allergy status to sulfonamides; Z88.8 Allergy status to other drugs, medicaments and biological substances; Z91.048 Other nonmedicinal substance allergy status

== ENCOUNTER 2021-08-10 17:18 | Emergency (ER) | payer OTHER ==
[2021-08-10 18:59] VITALS: BP 166/81
== END 2021-08-10 19:27 | disposition home or self-care (01) ==
LOC: M ED 17:18 → EDBD 17:18 → M ED 19:27
DX: R06.02 Shortness of breath (principal); J44.1 Chronic obstructive pulmonary disease with (acute) exacerbation; I49.9 Cardiac arrhythmia, unspecified; I10 Essential (primary) hypertension; F17.200 Nicotine dependence, unspecified, uncomplicated; Z88.1 Allergy status to other antibiotic agents; Z88.2 Allergy status to sulfonamides; Z88.8 Allergy status to other drugs, medicaments and biological substances

== ENCOUNTER 2021-08-22 10:31 | Inpatient (IN) | payer OTHER ==
[2021-08-22] MEDS ORDERED: DEXTROSE 50% 50 ML SYRINGE As Ordered ONE (10:48)
[2021-08-22] MEDS ORDERED: DEXTROSE 50% 50 ML SYRINGE IV STA ×2 (10:50→12:04)
[2021-08-22 11:19] LABS: VENOUS BASE EXCESS -4.3 (-2.0-2.0); VENOUS HCO3 25.8 MEQ/L (23.0-27.0); VENOUS O2 SATURATION 78.3 % (60.0-80.0); VENOUS PARTIAL PRESSURE CO2 76.7 mmHg (38.0-50.0); VENOUS PARTIAL PRESSURE O2 53.7 mmHg (30.0-50.0); VENOUS PH 7.144 UNITS (7.330-7.430); VENOUS STANDARD HCO3 20.5 MEQ/L; VENOUS TOTAL CO2 28.1 MEQ/L (24.0-28.0)
[2021-08-22 11:26] LABS: BASO # 0.1 10^3/uL (0.0-0.2); BASO % 0.4 % (0.0-1.0); EOS # 0.1 10^3/uL (0.0-0.5); EOS % 0.6 % (0.0-3.0); HEMATOCRIT 32.6 % (36.0-47.0); HEMOGLOBIN 10.2 g/dl (12.0-15.5); LYMPH # 1.3 10^3/uL (1.5-5.0); LYMPH % 11.9 % (24.0-44.0); MEAN CORPUSCULAR HGB CONC 31.3 g/dl (32.0-36.5); MEAN CORPUSCULAR VOLUME 99.1 fl (80.0-96.0); MONO # 0.8 10^3/uL (0.0-0.8); MONO % 7.5 % (2.0-8.0); NEUTROPHILS # 8.8 10^3/uL (1.5-8.5); NEUTROPHILS % 78.9 % (36.0-66.0); PLATELET COUNT, AUTOMATED 194 10^3/uL (150-450); RED BLOOD COUNT 3.29 10^6/uL (4.00-5.40); WHITE BLOOD COUNT 11.2 10^3/uL (4.0-10.0)
[2021-08-22 11:50] LABS: ALBUMIN 2.1 GM/DL (3.2-5.2); BILIRUBIN,DIRECT 0.1 MG/DL (0.0-0.2); BILIRUBIN,TOTAL 0.3 MG/DL (0.2-1.0); TOTAL PROTEIN 5.1 GM/DL (6.4-8.2)
[2021-08-22] MEDS ORDERED: cefTRIAXone SOD 2 GM in D5W MINI-BAG PLUS 50 ML IV ONE (12:15)
[2021-08-22 13:01] LABS: RSV AMPLIFICATION NEGATIVE (NEGATIVE)
[2021-08-22 13:50] LABS: HEMOGLOBIN A1c 6.2 %
[2021-08-22] MEDS: D5W/0.9% SODIUM CHLORIDE 1,000 ML IV SCH ×2 (14:05→20:41)
[2021-08-22] MEDS ORDERED: HOME MED LIST COMPLETE! XX SCH (14:10)
[2021-08-22] MEDS ORDERED: GLUCAGON INJ 1MG VIAL SC PRN (14:40)
[2021-08-22] MEDS ORDERED: DEXTROSE 50% 50 ML SYRINGE IV PRN ×2 (14:40→18:20)
[2021-08-22] MEDS ORDERED: ALBUTEROL SULFATE 2.5 MG/0.5 ML INH NEB SOLN INH PRN (15:35)
[2021-08-22] MEDS: GLUCOSE 4GM CHEW TABLET PO PRN ×2 (16:05→17:13)
[2021-08-22] MEDS ORDERED: LOPERAMIDE 2 MG CAPLET PO PRN (16:50)
[2021-08-22 17:42] LABS: CALCIUM LEVEL 8.8 MG/DL (8.8-10.2); CREATININE FOR GFR 1.09 MG/DL (0.55-1.30); GLOMERULAR FILTRATION RATE 52.1 (>39)
[2021-08-22] MEDS: ATORVASTATIN 20 MG TAB PO SCH (20:21)
[2021-08-22] MEDS: GABAPENTIN 100 MG CAP PO SCH (20:21)
[2021-08-22 20:35] VITALS: BP 154/66
[2021-08-22] MEDS: APIXABAN 5 MG TAB (ELIQUIS) PO SCH (21:00)
[2021-08-22 23:56] VITALS: BP 158/72
[2021-08-23] MEDS: ACETAMINOPHEN TAB 650MG DOSE (2X325MG) PO PRN (02:25)
[2021-08-23 04:00] VITALS: BP 149/67
[2021-08-23] MEDS: LEVOTHYROXINE 75MCG TABLET (0.075MG) PO SCH (06:13)
[2021-08-23 07:05] LABS: HEMATOCRIT 27.7 % (36.0-47.0); MEAN CORPUSCULAR HGB CONC 32.5 g/dl (32.0-36.5); MEAN CORPUSCULAR VOLUME 98.6 fl (80.0-96.0); PLATELET COUNT, AUTOMATED 140 10^3/uL (150-450); RED BLOOD COUNT 2.81 10^6/uL (4.00-5.40); WHITE BLOOD COUNT 16.8 10^3/uL (4.0-10.0)
[2021-08-23 07:40] LABS: CALCIUM LEVEL 8.4 MG/DL (8.8-10.2); CREATININE FOR GFR 1.06 MG/DL (0.55-1.30); GLOMERULAR FILTRATION RATE 53.8 (>39); POTASSIUM SERUM 5.3 MEQ/L (3.5-5.1)
[2021-08-23] MEDS: TIOTROPIUM INHALER/CAPSULE (SPIRIVA) INH SCH (08:00)
[2021-08-23 08:13] VITALS: BP 136/63
[2021-08-23] MEDS: APIXABAN 5 MG TAB (ELIQUIS) PO SCH ×2 (08:31→23:13)
[2021-08-23] MEDS: DULoxetine 30MG CAPSULE (CYMBALTA) PO SCH (08:31)
[2021-08-23] MEDS ORDERED: PNEUMOCOCCAL VACCINE 0.5ML SYRINGE (PNEUMOVAX 23) IM.IMMUN ONE (09:00)
[2021-08-23] MEDS: NYSTATIN 100,000 UNITS/GM TOPICAL PWD 15 GM TOP SCH ×2 (09:00→23:13)
[2021-08-23 12:02] VITALS: BP 167/73
[2021-08-23] MEDS ORDERED: ISOVUE-370 76% 100ML VIAL As Ordered ONE (13:41)
[2021-08-23] MEDS ORDERED: PATIROMER SORBITEX CALCIUM 8.4 GM POWDER PACKET (VELTASSA) PO ONE (14:00)
[2021-08-23] MEDS: ATORVASTATIN 20 MG TAB PO SCH (17:13)
[2021-08-23] MEDS: GABAPENTIN 100 MG CAP PO SCH (17:14)
[2021-08-23 18:43] LABS: CALCIUM LEVEL 8.7 MG/DL (8.8-10.2); CREATININE FOR GFR 1.07 MG/DL (0.55-1.30); GLOMERULAR FILTRATION RATE 53.2 (>39)
[2021-08-23] MEDS: ADVAIR HFA 230/21MCG INHALER INH SCH (19:41)
[2021-08-23 20:00] VITALS: BP 156/63
[2021-08-24] MEDS: ACETAMINOPHEN TAB 650MG DOSE (2X325MG) PO PRN (01:46)
[2021-08-24] MEDS ORDERED: GABAPENTIN 100 MG CAP PO ONE (03:00)
[2021-08-24 05:10] VITALS: BP 165/74
[2021-08-24] MEDS: LEVOTHYROXINE 75MCG TABLET (0.075MG) PO SCH (06:26)
[2021-08-24 06:34] LABS: HEMATOCRIT 25.8 % (36.0-47.0); HEMOGLOBIN 8.2 g/dl (12.0-15.5); MEAN CORPUSCULAR HEMOGLOBIN 31.1 pg (27.0-33.0); MEAN CORPUSCULAR HGB CONC 31.8 g/dl (32.0-36.5); MEAN CORPUSCULAR VOLUME 97.7 fl (80.0-96.0); PLATELET COUNT, AUTOMATED 131 10^3/uL (150-450); RED BLOOD COUNT 2.64 10^6/uL (4.00-5.40); WHITE BLOOD COUNT 12.6 10^3/uL (4.0-10.0)
[2021-08-24 06:55] LABS: CALCIUM LEVEL 8.3 MG/DL (8.8-10.2); CREATININE FOR GFR 1.05 MG/DL (0.55-1.30); GLOMERULAR FILTRATION RATE 54.4 (>39); POTASSIUM SERUM 4.3 MEQ/L (3.5-5.1)
[2021-08-24 08:00] VITALS: BP 163/72
[2021-08-24] MEDS: ADVAIR HFA 230/21MCG INHALER INH SCH ×2 (08:06→19:32)
[2021-08-24] MEDS: TIOTROPIUM INHALER/CAPSULE (SPIRIVA) INH SCH (08:06)
[2021-08-24] MEDS: APIXABAN 5 MG TAB (ELIQUIS) PO SCH ×2 (08:34→19:55)
[2021-08-24] MEDS: DULoxetine 30MG CAPSULE (CYMBALTA) PO SCH (08:34)
[2021-08-24] MEDS: NYSTATIN 100,000 UNITS/GM TOPICAL PWD 15 GM TOP SCH ×2 (08:35→19:55)
[2021-08-24 09:25] LABS: C REACTIVE PROTEIN QUANTITATIV 9.92 MG/DL (0.00-0.30)
[2021-08-24 12:32] LABS: HEMATOCRIT 26.4 % (36.0-47.0); HEMOGLOBIN 8.4 g/dl (12.0-15.5); MEAN CORPUSCULAR HEMOGLOBIN 31.6 pg (27.0-33.0); MEAN CORPUSCULAR HGB CONC 31.8 g/dl (32.0-36.5); MEAN CORPUSCULAR VOLUME 99.2 fl (80.0-96.0); PLATELET COUNT, AUTOMATED 153 10^3/uL (150-450); RED BLOOD COUNT 2.66 10^6/uL (4.00-5.40)
[2021-08-24 13:06] LABS: ERYTHROCYTE SEDIMENTATION RATE 86 mm/hr (0-30)
[2021-08-24 16:20] VITALS: BP 165/71
[2021-08-24] MEDS: ATORVASTATIN 20 MG TAB PO SCH (17:10)
[2021-08-24] MEDS: GABAPENTIN 100 MG CAP PO SCH (17:10)
[2021-08-24] MEDS: CEFDINIR 300 MG CAP (OMNICEF) PO SCH (19:55)
[2021-08-24] MEDS: DOXYCYCLINE HYCLATE 100MG TABLET PO SCH (19:55)
[2021-08-24 20:28] VITALS: BP 139/57
[2021-08-24] MEDS ORDERED: RAMELTEON 8 MG TAB (ROZEREM) PO PRN (21:15)
[2021-08-25] MEDS: LEVOTHYROXINE 75MCG TABLET (0.075MG) PO SCH (05:28)
[2021-08-25 06:00] VITALS: BP 138/61
[2021-08-25 06:27] LABS: HEMATOCRIT 24.6 % (36.0-47.0); HEMOGLOBIN 7.9 g/dl (12.0-15.5); MEAN CORPUSCULAR HEMOGLOBIN 31.5 pg (27.0-33.0); MEAN CORPUSCULAR HGB CONC 32.1 g/dl (32.0-36.5); PLATELET COUNT, AUTOMATED 123 10^3/uL (150-450); RED BLOOD COUNT 2.51 10^6/uL (4.00-5.40); WHITE BLOOD COUNT 10.7 10^3/uL (4.0-10.0)
[2021-08-25 06:47] LABS: CALCIUM LEVEL 8.5 MG/DL (8.8-10.2); CREATININE FOR GFR 1.09 MG/DL (0.55-1.30); GLOMERULAR FILTRATION RATE 52.1 (>39); POTASSIUM SERUM 4.3 MEQ/L (3.5-5.1)
[2021-08-25] MEDS: ADVAIR HFA 230/21MCG INHALER INH SCH ×2 (07:12→19:25)
[2021-08-25] MEDS: TIOTROPIUM INHALER/CAPSULE (SPIRIVA) INH SCH (07:13)
[2021-08-25] MEDS: DULoxetine 30MG CAPSULE (CYMBALTA) PO SCH (08:17)
[2021-08-25] MEDS: CEFDINIR 300 MG CAP (OMNICEF) PO SCH ×2 (08:17→20:08)
[2021-08-25] MEDS: APIXABAN 5 MG TAB (ELIQUIS) PO SCH ×2 (08:17→20:08)
[2021-08-25] MEDS: DOXYCYCLINE HYCLATE 100MG TABLET PO SCH ×2 (08:17→20:08)
[2021-08-25] MEDS: NYSTATIN 100,000 UNITS/GM TOPICAL PWD 15 GM TOP SCH ×2 (08:18→20:08)
[2021-08-25] MEDS ORDERED: ADVA230A INH (09:01)
[2021-08-25] MEDS ORDERED: DOXY100T PO (09:01)
[2021-08-25] MEDS ORDERED: CEFD300CAP PO (09:01)
[2021-08-25] MEDS ORDERED: ACE65ERTAB PO (09:01)
[2021-08-25] MEDS ORDERED: TIOT18INH INH (09:01)
[2021-08-25] MEDS ORDERED: TREL1AER PO (10:02)
[2021-08-25] MEDS: ACETAMINOPHEN TAB 650MG DOSE (2X325MG) PO SCH ×4 (12:00→23:00)
[2021-08-25 14:00] VITALS: BP_SYST 107; BP_SYST 124; BP_DIAS 63
[2021-08-25] MEDS: GABAPENTIN 100 MG CAP PO SCH (17:17)
[2021-08-25] MEDS: ATORVASTATIN 20 MG TAB PO SCH (17:17)
[2021-08-25 22:00] VITALS: BP 132/60
[2021-08-26] MEDS: ACETAMINOPHEN TAB 650MG DOSE (2X325MG) PO SCH (06:12)
[2021-08-26] MEDS: LEVOTHYROXINE 75MCG TABLET (0.075MG) PO SCH (06:13)
[2021-08-26 06:40] LABS: HEMATOCRIT 26.4 % (36.0-47.0); HEMOGLOBIN 8.4 g/dl (12.0-15.5); MEAN CORPUSCULAR HEMOGLOBIN 31.7 pg (27.0-33.0); MEAN CORPUSCULAR HGB CONC 31.8 g/dl (32.0-36.5); MEAN CORPUSCULAR VOLUME 99.6 fl (80.0-96.0); PLATELET COUNT, AUTOMATED 148 10^3/uL (150-450); RED BLOOD COUNT 2.65 10^6/uL (4.00-5.40)
[2021-08-26 07:02] LABS: CALCIUM LEVEL 8.2 MG/DL (8.8-10.2); CREATININE FOR GFR 1.19 MG/DL (0.55-1.30); GLOMERULAR FILTRATION RATE 47.1 (>39); POTASSIUM SERUM 4.8 MEQ/L (3.5-5.1)
[2021-08-26 07:13] VITALS: BP 145/62
[2021-08-26] MEDS: ADVAIR HFA 230/21MCG INHALER INH SCH (07:53)
[2021-08-26] MEDS: DOXYCYCLINE HYCLATE 100MG TABLET PO SCH (08:55)
[2021-08-26] MEDS: CEFDINIR 300 MG CAP (OMNICEF) PO SCH (08:55)
[2021-08-26] MEDS: DULoxetine 30MG CAPSULE (CYMBALTA) PO SCH (08:55)
[2021-08-26 08:56] VITALS: BP 145/62
[2021-08-26] MEDS: APIXABAN 5 MG TAB (ELIQUIS) PO SCH (08:56)
[2021-08-26] MEDS: NYSTATIN 100,000 UNITS/GM TOPICAL PWD 15 GM TOP SCH (08:57)
== END 2021-08-26 11:50 | disposition home or self-care (01) | DRG 918 ==
LOC: M ED 10:31 → EDBD 10:31 → M ED INP 14:36 → ENRESERV 17:37 → M PCU 20:48 → M MSPAV 08-24 16:21
PROVIDERS: ADMIT Internal Medicine; ATTEND Internal Medicine
DX: T38.3X1A Poisoning by insulin and oral hypoglycemic [antidiabetic] drugs, accidental (unintentional), initial encounter (principal); J96.11 Chronic respiratory failure with hypoxia; I13.0 Hypertensive heart and chronic kidney disease with heart failure and stage 1 through stage 4 chronic kidney disease, or unspecified chronic kidney disease; I50.32 Chronic diastolic (congestive) heart failure; S22.41XA Multiple fractures of ribs, right side, initial encounter for closed fracture; J44.9 Chronic obstructive pulmonary disease, unspecified; E11.649 Type 2 diabetes mellitus with hypoglycemia without coma; R68.0 Hypothermia, not associated with low environmental temperature; M54.50 Low back pain, unspecified; E11.51 Type 2 diabetes mellitus with diabetic peripheral angiopathy without gangrene; N18.30 Chronic kidney disease, stage 3 unspecified; E11.22 Type 2 diabetes mellitus with diabetic chronic kidney disease; E78.5 Hyperlipidemia, unspecified; E03.9 Hypothyroidism, unspecified; R91.8 Other nonspecific abnormal finding of lung field; D72.829 Elevated white blood cell count, unspecified; F17.200 Nicotine dependence, unspecified, uncomplicated; F41.9 Anxiety disorder, unspecified; F32.A Depression, unspecified; K52.9 Noninfective gastroenteritis and colitis, unspecified; Z86.711 Personal history of pulmonary embolism; Z86.718 Personal history of other venous thrombosis and embolism; W19.XXXA Unspecified fall, initial encounter; Y92.9 Unspecified place or not applicable; Y93.9 Activity, unspecified; Y99.8 Other external cause status; Z99.81 Dependence on supplemental oxygen; Z79.01 Long term (current) use of anticoagulants; Z79.4 Long term (current) use of insulin; Z95.820 Peripheral vascular angioplasty status with implants and grafts; Z79.899 Other long term (current) drug therapy; Z88.2 Allergy status to sulfonamides; Z88.5 Allergy status to narcotic agent; Z88.8 Allergy status to other drugs, medicaments and biological substances

== ENCOUNTER 2021-09-09 06:20 | Inpatient (IN) | payer OTHER ==
[2021-09-09] VITALS (9 sets, daily range): BP systolic 118–183; BP diastolic 58–81
[~2021-09-09] VITALS: Ht 157.5 cm; Wt 45.3 kg
[2021-09-09] MEDS: LEVOTHYROXINE 75MCG TABLET (0.075MG) PO SCH (06:00)
[~2021-09-09 06:20] MED LIST changes: +ACE65ERTAB PO; +DOXY100T PO; +TREL1AER PO
[2021-09-09] MEDS ORDERED: DEXTROSE 50% 50 ML SYRINGE IV STA (06:33)
[2021-09-09] MEDS ORDERED: DEXTROSE 50% 50 ML SYRINGE As Ordered ONE (06:34)
[2021-09-09 06:52] LABS: VENOUS HCO3 22.2 MEQ/L (23.0-27.0); VENOUS O2 SATURATION 97.5 % (60.0-80.0); VENOUS PARTIAL PRESSURE CO2 35.9 mmHg (38.0-50.0); VENOUS PARTIAL PRESSURE O2 105.8 mmHg (30.0-50.0); VENOUS PH 7.409 UNITS (7.330-7.430); VENOUS STANDARD HCO3 22.8 MEQ/L; VENOUS TOTAL CO2 23.3 MEQ/L (24.0-28.0)
[2021-09-09 06:54] LABS: BASO # 0.1 10^3/uL (0.0-0.2); BASO % 0.8 % (0.0-1.0); EOS # 0.1 10^3/uL (0.0-0.5); EOS % 1.2 % (0.0-3.0); HEMATOCRIT 31.2 % (36.0-47.0); HEMOGLOBIN 10.2 g/dl (12.0-15.5); MEAN CORPUSCULAR HGB CONC 32.7 g/dl (32.0-36.5); MEAN CORPUSCULAR VOLUME 97.8 fl (80.0-96.0); MONO # 0.5 10^3/uL (0.0-0.8); MONO % 4.8 % (2.0-8.0); NEUTROPHILS # 9.2 10^3/uL (1.5-8.5); NEUTROPHILS % 83.5 % (36.0-66.0); PLATELET COUNT, AUTOMATED 228 10^3/uL (150-450); RED BLOOD COUNT 3.19 10^6/uL (4.00-5.40); WHITE BLOOD COUNT 11.1 10^3/uL (4.0-10.0)
[2021-09-09 07:34] LABS: ALBUMIN 2.5 GM/DL (3.2-5.2); ALT/SGPT 20 U/L (12-78); BILIRUBIN,DIRECT < 0.1 MG/DL (0.0-0.2); BILIRUBIN,TOTAL 0.2 MG/DL (0.2-1.0); BLOOD UREA NITROGEN 31 MG/DL (7-18); CALCIUM LEVEL 8.8 MG/DL (8.8-10.2); CARBON DIOXIDE LEVEL 21 MEQ/L (21-32); CHLORIDE LEVEL 113 MEQ/L (98-107); CREATININE FOR GFR 1.17 MG/DL (0.55-1.30); GLOMERULAR FILTRATION RATE 47.9 (>39); GLUCOSE, FASTING 37 MG/DL (70-100); POTASSIUM SERUM 5.6 MEQ/L (3.5-5.1); SODIUM LEVEL 143 MEQ/L (136-145); TOTAL PROTEIN 6.3 GM/DL (6.4-8.2)
[2021-09-09 07:42] LABS: RSV AMPLIFICATION NEGATIVE (NEGATIVE)
[2021-09-09] MEDS ORDERED: D5W/0.9% SODIUM CHLORIDE 1,000 ML IV SCH (08:35)
[2021-09-09] MEDS ORDERED: ALBUTEROL 90 MCG/ACT 8GM HFA INHALER INH PRN (08:45)
[2021-09-09] MEDS ORDERED: TREL1AER INH (09:02)
[2021-09-09] MEDS ORDERED: ACET-910 PO (09:02)
[2021-09-09] MEDS ORDERED: COMMENTS (09:04)
[2021-09-09] MEDS ORDERED: HOME MED LIST COMPLETE! XX SCH (09:05)
[2021-09-09] MEDS: APIXABAN 5 MG TAB (ELIQUIS) PO SCH ×2 (09:57→20:09)
[2021-09-09] MEDS ORDERED: GLUCAGON INJ 1MG VIAL SC PRN (10:10)
[2021-09-09] MEDS ORDERED: GLUCOSE 4GM CHEW TABLET PO PRN (10:10)
[2021-09-09] MEDS ORDERED: D5W 1,000 ML IV SCH (10:20)
[2021-09-09] MEDS ORDERED: INSULIN LISPRO (NovoLOG) PER UNIT SC SCH ×2 (12:00→21:00)
[2021-09-09 12:09] LABS: HEMOGLOBIN A1c 6.3 %
[2021-09-09] MEDS: DEXTROSE 50% 50 ML SYRINGE IV PRN ×2 (12:12→13:18)
[2021-09-09] MEDS: DULoxetine 30MG CAPSULE (CYMBALTA) PO SCH (12:25)
[2021-09-09] MEDS: **hydrALAZINE** 50 MG TAB PO SCH ×2 (12:25→20:09)
[2021-09-09] MEDS: D10W/0.45% SODIUM CHLORIDE 1,000 ML IV SCH (13:27)
[2021-09-09] MEDS ORDERED: GABAPENTIN 100 MG CAP PO SCH (14:00)
[2021-09-09] MEDS ORDERED: GABAPENTIN 100 MG CAP PO ONE (14:00)
[2021-09-09] MEDS: methylPREDNISolone 125MG 2ML VIAL IV SCH (14:29)
[2021-09-09] MEDS: ACETAMINOPHEN TAB 650MG DOSE (2X325MG) PO PRN (14:29)
[2021-09-09] MEDS: ATORVASTATIN 20 MG TAB PO SCH (20:09)
[2021-09-09] MEDS: GABAPENTIN 100 MG CAP PO SCH (20:09)
[2021-09-09 21:33] LABS: CALCIUM LEVEL 8.3 MG/DL (8.8-10.2); CREATININE FOR GFR 1.11 MG/DL (0.55-1.30); GLOMERULAR FILTRATION RATE 50.9 (>39); MAGNESIUM LEVEL 1.5 MG/DL (1.8-2.4); POTASSIUM SERUM 4.7 MEQ/L (3.5-5.1)
[2021-09-09] MEDS ORDERED: MAG SULF 1GM/100ML (MAG RUN) 1 GM in IV 1 EA IV ONE (23:00)
[2021-09-10] MEDS: ACETAMINOPHEN TAB 650MG DOSE (2X325MG) PO PRN (00:10)
[2021-09-10] MEDS: methylPREDNISolone 125MG 2ML VIAL IV SCH ×2 (01:03→14:10)
[2021-09-10 03:45] VITALS: BP 140/65
[2021-09-10] MEDS: LEVOTHYROXINE 75MCG TABLET (0.075MG) PO SCH (05:02)
[2021-09-10 06:48] LABS: HEMATOCRIT 27.6 % (36.0-47.0); HEMOGLOBIN 8.8 g/dl (12.0-15.5); MEAN CORPUSCULAR HEMOGLOBIN 31.4 pg (27.0-33.0); MEAN CORPUSCULAR HGB CONC 31.9 g/dl (32.0-36.5); MEAN CORPUSCULAR VOLUME 98.6 fl (80.0-96.0); PLATELET COUNT, AUTOMATED 159 10^3/uL (150-450); WHITE BLOOD COUNT 7.5 10^3/uL (4.0-10.0)
[2021-09-10 07:07] LABS: ALBUMIN 2.1 GM/DL (3.2-5.2); BILIRUBIN,TOTAL 0.2 MG/DL (0.2-1.0); CALCIUM LEVEL 8.6 MG/DL (8.8-10.2); CREATININE FOR GFR 1.28 MG/DL (0.55-1.30); GLOMERULAR FILTRATION RATE 43.2 (>39); POTASSIUM SERUM 4.6 MEQ/L (3.5-5.1); TOTAL PROTEIN 5.5 GM/DL (6.4-8.2)
[2021-09-10 07:23] VITALS: BP 169/74
[2021-09-10] MEDS: APIXABAN 5 MG TAB (ELIQUIS) PO SCH ×2 (10:03→22:07)
[2021-09-10] MEDS: **hydrALAZINE** 50 MG TAB PO SCH ×2 (10:04→22:07)
[2021-09-10] MEDS: DULoxetine 30MG CAPSULE (CYMBALTA) PO SCH (10:04)
[2021-09-10] MEDS: D10W/0.45% SODIUM CHLORIDE 1,000 ML IV SCH (10:10)
[2021-09-10 10:28] LABS: CORTISOL AM 20.4 UG/DL (4.3-22.4)
[2021-09-10 12:41] VITALS: BP 165/73
[2021-09-10 16:34] VITALS: BP 162/70
[2021-09-10] MEDS ORDERED: NS 500 ML IV ONE (17:30)
[2021-09-10] MEDS: INSULIN LISPRO (NovoLOG) PER UNIT SC SCH ×2 (17:30→21:00)
[2021-09-10] MEDS ORDERED: INSULIN LISPRO (NovoLOG) PER UNIT SC STA (17:36)
[2021-09-10] MEDS ORDERED: HumuLIN R (REGULAR) INSULIN (NovoLIN R) **100U/ML** PER UNIT IV STA (18:55)
[2021-09-10] MEDS ORDERED: LEVEMIR (INSULIN DETEMIR) 1 UNITS/0.01ML SC SCH (19:06)
[2021-09-10 20:00] VITALS: BP 171/79
[2021-09-10] MEDS: GABAPENTIN 100 MG CAP PO SCH (22:08)
[2021-09-10] MEDS: ATORVASTATIN 20 MG TAB PO SCH (22:08)
[2021-09-11] MEDS: methylPREDNISolone 125MG 2ML VIAL IV SCH ×2 (02:59→14:23)
[2021-09-11 04:20] VITALS: BP 173/75
[2021-09-11] MEDS: LEVOTHYROXINE 75MCG TABLET (0.075MG) PO SCH (05:11)
[2021-09-11] MEDS: ACETAMINOPHEN TAB 650MG DOSE (2X325MG) PO PRN (05:11)
[2021-09-11 06:33] LABS: BASO % 0.1 % (0.0-1.0); HEMATOCRIT 24.9 % (36.0-47.0); HEMOGLOBIN 8.1 g/dl (12.0-15.5); LYMPH # 0.5 10^3/uL (1.5-5.0); LYMPH % 4.4 % (24.0-44.0); MEAN CORPUSCULAR HEMOGLOBIN 31.8 pg (27.0-33.0); MEAN CORPUSCULAR HGB CONC 32.5 g/dl (32.0-36.5); MEAN CORPUSCULAR VOLUME 97.6 fl (80.0-96.0); MONO # 0.7 10^3/uL (0.0-0.8); MONO % 6.4 % (2.0-8.0); NEUTROPHILS # 9.7 10^3/uL (1.5-8.5); NEUTROPHILS % 88.4 % (36.0-66.0); PLATELET COUNT, AUTOMATED 204 10^3/uL (150-450); RED BLOOD COUNT 2.55 10^6/uL (4.00-5.40)
[2021-09-11 06:50] LABS: ALBUMIN 2.3 GM/DL (3.2-5.2); BILIRUBIN,TOTAL 0.2 MG/DL (0.2-1.0); CALCIUM LEVEL 8.7 MG/DL (8.8-10.2); CREATININE FOR GFR 1.31 MG/DL (0.55-1.30); MAGNESIUM LEVEL 1.8 MG/DL (1.8-2.4); POTASSIUM SERUM 4.5 MEQ/L (3.5-5.1); TOTAL PROTEIN 5.3 GM/DL (6.4-8.2)
[2021-09-11] MEDS: INSULIN LISPRO (NovoLOG) PER UNIT SC SCH ×4 (07:30→20:35)
[2021-09-11 07:33] VITALS: BP 164/75
[2021-09-11] MEDS: APIXABAN 5 MG TAB (ELIQUIS) PO SCH ×2 (09:20→20:29)
[2021-09-11] MEDS: **hydrALAZINE** 50 MG TAB PO SCH ×2 (09:20→20:30)
[2021-09-11] MEDS: DULoxetine 30MG CAPSULE (CYMBALTA) PO SCH (09:20)
[2021-09-11 12:00] VITALS: BP 163/75
[2021-09-11 16:43] VITALS: BP 172/72
[2021-09-11 20:00] VITALS: BP 177/78
[2021-09-11] MEDS: ATORVASTATIN 20 MG TAB PO SCH (20:30)
[2021-09-11] MEDS: GABAPENTIN 100 MG CAP PO SCH (20:30)
[2021-09-11] MEDS ORDERED: LEVEMIR (INSULIN DETEMIR) 1 UNITS/0.01ML SC SCH (21:00)
[2021-09-12] VITALS: BP 174/76
[2021-09-12] MEDS: methylPREDNISolone 125MG 2ML VIAL IV SCH (02:00)
[2021-09-12 04:00] VITALS: BP 146/65
[2021-09-12] MEDS: LEVOTHYROXINE 75MCG TABLET (0.075MG) PO SCH (06:53)
[2021-09-12] MEDS: DEXTROSE 50% 50 ML SYRINGE IV PRN (07:24)
[2021-09-12] MEDS: INSULIN LISPRO (NovoLOG) PER UNIT SC SCH (07:30)
[2021-09-12 08:00] VITALS: BP 148/99
[2021-09-12] MEDS ORDERED: TIOTROPIUM INHALER/CAPSULE (SPIRIVA) INH SCH (08:00)
[2021-09-12] MEDS ORDERED: SYMBICORT 80/4.5MCG INHALER 6GM INH SCH (08:00)
[2021-09-12 08:29] LABS: BASO % 0.1 % (0.0-1.0); HEMATOCRIT 28.1 % (36.0-47.0); LYMPH # 0.5 10^3/uL (1.5-5.0); LYMPH % 5.1 % (24.0-44.0); MEAN CORPUSCULAR HEMOGLOBIN 32.3 pg (27.0-33.0); MEAN CORPUSCULAR VOLUME 100.7 fl (80.0-96.0); MONO # 0.9 10^3/uL (0.0-0.8); MONO % 8.4 % (2.0-8.0); NEUTROPHILS # 9.1 10^3/uL (1.5-8.5); NEUTROPHILS % 85.8 % (36.0-66.0); PLATELET COUNT, AUTOMATED 229 10^3/uL (150-450); RED BLOOD COUNT 2.79 10^6/uL (4.00-5.40); WHITE BLOOD COUNT 10.6 10^3/uL (4.0-10.0)
[2021-09-12 08:56] LABS: ALBUMIN 2.3 GM/DL (3.2-5.2); BILIRUBIN,TOTAL 0.4 MG/DL (0.2-1.0); CALCIUM LEVEL 8.7 MG/DL (8.8-10.2); CREATININE FOR GFR 1.14 MG/DL (0.55-1.30); GLOMERULAR FILTRATION RATE 49.3 (>39); MAGNESIUM LEVEL 1.9 MG/DL (1.8-2.4); POTASSIUM SERUM 4.7 MEQ/L (3.5-5.1); TOTAL PROTEIN 5.6 GM/DL (6.4-8.2)
[2021-09-12 09:15] VITALS: O2SAT 93
[2021-09-12 10:18] VITALS: BP 148/99
[2021-09-12] MEDS: **hydrALAZINE** 50 MG TAB PO SCH (10:18)
[2021-09-12] MEDS: APIXABAN 5 MG TAB (ELIQUIS) PO SCH (10:19)
[2021-09-12] MEDS: DULoxetine 30MG CAPSULE (CYMBALTA) PO SCH (10:19)
[2021-09-12 12:00] VITALS: BP 164/62
[2021-09-12] MEDS ORDERED: DOXY-350 PO (13:35)
[2021-09-12] MEDS ORDERED: AMOX875T PO (13:35)
[2021-09-12] MEDS ORDERED: PRED10TA2 PO (13:35)
== END 2021-09-12 13:48 | disposition left against medical advice (07) | DRG 637 ==
LOC: M ED 06:20 → M ED INP 08:25 → M ICU 12:58 → M PCU 20:00
PROVIDERS: ADMIT Family Medicine; ATTEND Family Medicine
DX: E11.649 Type 2 diabetes mellitus with hypoglycemia without coma (principal); J18.9 Pneumonia, unspecified organism; J96.11 Chronic respiratory failure with hypoxia; I13.0 Hypertensive heart and chronic kidney disease with heart failure and stage 1 through stage 4 chronic kidney disease, or unspecified chronic kidney disease; I50.32 Chronic diastolic (congestive) heart failure; J44.9 Chronic obstructive pulmonary disease, unspecified; M48.00 Spinal stenosis, site unspecified; E11.51 Type 2 diabetes mellitus with diabetic peripheral angiopathy without gangrene; N18.30 Chronic kidney disease, stage 3 unspecified; E11.22 Type 2 diabetes mellitus with diabetic chronic kidney disease; Z99.81 Dependence on supplemental oxygen; E78.5 Hyperlipidemia, unspecified; E03.9 Hypothyroidism, unspecified; R91.8 Other nonspecific abnormal finding of lung field; F41.9 Anxiety disorder, unspecified; F32.A Depression, unspecified; Z95.5 Presence of coronary angioplasty implant and graft; M54.50 Low back pain, unspecified; R68.0 Hypothermia, not associated with low environmental temperature; Z86.711 Personal history of pulmonary embolism; Z86.718 Personal history of other venous thrombosis and embolism; Z79.01 Long term (current) use of anticoagulants; Z79.890 Hormone replacement therapy; Z79.899 Other long term (current) drug therapy; Z88.2 Allergy status to sulfonamides; Z88.5 Allergy status to narcotic agent; Z88.8 Allergy status to other drugs, medicaments and biological substances; Z91.048 Other nonmedicinal substance allergy status

== ENCOUNTER 2021-09-24 08:39 | Inpatient (IN) | payer OTHER ==
[~2021-09-24] VITALS: Ht 157.5 cm; Wt 49.8 kg
[~2021-09-24 08:39] MED LIST changes: +COMMENTS
[2021-09-24] MEDS ORDERED: GLUCAGON INJ 1MG VIAL IM STA (08:53)
[2021-09-24] MEDS ORDERED: GLUCAGON INJ 1MG VIAL As Ordered ONE (08:54)
[2021-09-24] MEDS ORDERED: DEXTROSE 50% 50 ML SYRINGE IV STA ×2 (09:01→13:01)
[2021-09-24] MEDS ORDERED: NS 1,000 ML IV ONE (09:05)
[2021-09-24] MEDS ORDERED: HOME MED LIST COMPLETE! XX SCH (09:50)
[2021-09-24 10:02] LABS: BASO # 0.1 10^3/uL (0.0-0.2); BASO % 0.3 % (0.0-1.0); EOS # 0.1 10^3/uL (0.0-0.5); EOS % 0.7 % (0.0-3.0); HEMATOCRIT 30.7 % (36.0-47.0); HEMOGLOBIN 9.7 g/dl (12.0-15.5); LYMPH # 1.4 10^3/uL (1.5-5.0); MEAN CORPUSCULAR HEMOGLOBIN 31.6 pg (27.0-33.0); MEAN CORPUSCULAR HGB CONC 31.6 g/dl (32.0-36.5); MONO # 0.8 10^3/uL (0.0-0.8); MONO % 4.9 % (2.0-8.0); NEUTROPHILS # 14.6 10^3/uL (1.5-8.5); NEUTROPHILS % 85.1 % (36.0-66.0); PLATELET COUNT, AUTOMATED 211 10^3/uL (150-450); RED BLOOD COUNT 3.07 10^6/uL (4.00-5.40); WHITE BLOOD COUNT 17.2 10^3/uL (4.0-10.0)
[2021-09-24 10:26] LABS: CALCIUM LEVEL 8.8 MG/DL (8.8-10.2); CREATININE FOR GFR 1.27 MG/DL (0.55-1.30); GLOMERULAR FILTRATION RATE 43.6 (>39)
[2021-09-24 10:35] LABS: RSV AMPLIFICATION NEGATIVE (NEGATIVE)
[2021-09-24] MEDS ORDERED: D5W/0.9% SODIUM CHLORIDE 1,000 ML IV SCH (11:40)
[2021-09-24] MEDS ORDERED: D10W 1,000 ML IV SCH ×2 (13:05→19:05)
[2021-09-24] MEDS ORDERED: **hydrALAZINE** 50 MG TAB PO SCH (18:00)
[2021-09-24] MEDS ORDERED: GLUCAGON INJ 1MG VIAL SC PRN (19:05)
[2021-09-24] MEDS ORDERED: ALBUTEROL SULFATE 2.5 MG/0.5 ML INH NEB SOLN NEB PRN (19:05)
[2021-09-24] MEDS ORDERED: GLUCOSE 4GM CHEW TABLET PO PRN (19:05)
[2021-09-24] MEDS: SYMBICORT 160/4.5MCG INHALER 6GM INH SCH (20:00)
[2021-09-24] MEDS: ATORVASTATIN 20 MG TAB PO SCH (20:21)
[2021-09-24] MEDS: GABAPENTIN 100 MG CAP PO SCH (20:23)
[2021-09-24 21:14] LABS: HEMOGLOBIN A1c 7.2 %
[2021-09-25] MEDS ORDERED: IPRATROPIUM 0.5MG/ALBUTEROL 2.5MG INH SOL UD 3ML (DUONEB) NEB ONE (00:40)
[2021-09-25] MEDS ORDERED: ALBUTEROL SULFATE 2.5 MG/0.5 ML INH NEB SOLN NEB ONE (00:40)
[2021-09-25] MEDS: DOXYCYCLINE HYCLATE 100 MG in D5W MINI-BAG PLUS 100 ML IV SCH ×2 (01:00→13:11)
[2021-09-25] MEDS: PIPERACILLIN/TAZOBACTAM SOD 2.25 GM in D5W MINI-BAG PLUS 50 ML IV SCH ×4 (02:00→21:13)
[2021-09-25 04:53] LABS: AMPHETAMINES LEVEL URINE NEGATIVE (NEGATIVE); BARBITURATES URINE NEGATIVE (NEGATIVE); BENZODIAZEPINES URINE NEGATIVE (NEGATIVE); CANNABINOIDS URINE POSITIVE (NEGATIVE); COCAINE METABOLITE URINE NEGATIVE (NEGATIVE); METHADONE URINE NEGATIVE (NEGATIVE); OPIATES URINE NEGATIVE (NEGATIVE); PHENCYCLIDINE URINE NEGATIVE (NEGATIVE)
[2021-09-25 05:00] VITALS: BP 110/58
[2021-09-25 06:21] LABS: BASO % 0.1 % (0.0-1.0); EOS % 0.1 % (0.0-3.0); HEMATOCRIT 27.9 % (36.0-47.0); HEMOGLOBIN 8.9 g/dl (12.0-15.5); LYMPH # 0.4 10^3/uL (1.5-5.0); MEAN CORPUSCULAR HEMOGLOBIN 31.7 pg (27.0-33.0); MEAN CORPUSCULAR HGB CONC 31.9 g/dl (32.0-36.5); MEAN CORPUSCULAR VOLUME 99.3 fl (80.0-96.0); MONO # 0.5 10^3/uL (0.0-0.8); MONO % 2.8 % (2.0-8.0); NEUTROPHILS # 16.5 10^3/uL (1.5-8.5); NEUTROPHILS % 94.5 % (36.0-66.0); PLATELET COUNT, AUTOMATED 168 10^3/uL (150-450); RED BLOOD COUNT 2.81 10^6/uL (4.00-5.40); WHITE BLOOD COUNT 17.5 10^3/uL (4.0-10.0)
[2021-09-25 06:58] LABS: ALBUMIN 2.2 GM/DL (3.2-5.2); BILIRUBIN,DIRECT 0.1 MG/DL (0.0-0.2); BILIRUBIN,TOTAL 0.3 MG/DL (0.2-1.0); CALCIUM LEVEL 7.9 MG/DL (8.8-10.2); CREATININE FOR GFR 1.16 MG/DL (0.55-1.30); GLOMERULAR FILTRATION RATE 48.4 (>39); POTASSIUM SERUM 3.4 MEQ/L (3.5-5.1); TOTAL PROTEIN 4.6 GM/DL (6.4-8.2)
[2021-09-25] MEDS: LEVOTHYROXINE 75MCG TABLET (0.075MG) PO SCH (07:26)
[2021-09-25 07:33] VITALS: BP 99/51
[2021-09-25] MEDS: DULoxetine 30MG CAPSULE (CYMBALTA) PO SCH (09:34)
[2021-09-25] MEDS: ENOXAPARIN 30MG/0.3ML SYRINGE (J1650 PER 10MG) SC SCH (09:35)
[2021-09-25] MEDS: SYMBICORT 160/4.5MCG INHALER 6GM INH SCH ×2 (09:36→20:00)
[2021-09-25] MEDS: IPRATROPIUM 0.5MG/ALBUTEROL 2.5MG INH SOL UD 3ML (DUONEB) NEB SCH ×2 (09:36→16:00)
[2021-09-25] MEDS: TIOTROPIUM INHALER/CAPSULE (SPIRIVA) INH SCH (09:36)
[2021-09-25 11:21] VITALS: BP 168/58
[2021-09-25] MEDS ORDERED: LEVEMIR (INSULIN DETEMIR) 1 UNITS/0.01ML SC SCH (12:00)
[2021-09-25 16:00] VITALS: BP 136/62
[2021-09-25] MEDS: GABAPENTIN 100 MG CAP PO SCH (17:06)
[2021-09-25 17:07] VITALS: BP 136/62
[2021-09-25] MEDS: ATORVASTATIN 20 MG TAB PO SCH (17:07)
[2021-09-25 20:00] VITALS: BP 104/51
[2021-09-26] VITALS: BP 100/52
[2021-09-26] MEDS: DOXYCYCLINE HYCLATE 100 MG in D5W MINI-BAG PLUS 100 ML IV SCH ×2 (00:49→13:11)
[2021-09-26] MEDS: PIPERACILLIN/TAZOBACTAM SOD 2.25 GM in D5W MINI-BAG PLUS 50 ML IV SCH ×3 (02:11→14:57)
[2021-09-26 04:00] VITALS: BP_SYST 102; BP_SYST 86; BP_DIAS 40; BP_DIAS 51
[2021-09-26] MEDS: LEVOTHYROXINE 75MCG TABLET (0.075MG) PO SCH (05:24)
[2021-09-26] MEDS: DEXTROSE 50% 50 ML SYRINGE IV PRN ×2 (05:32→05:54)
[2021-09-26 06:40] LABS: BASO # 0.1 10^3/uL (0.0-0.2); BASO % 0.3 % (0.0-1.0); EOS # 0.1 10^3/uL (0.0-0.5); EOS % 0.4 % (0.0-3.0); HEMATOCRIT 26.1 % (36.0-47.0); HEMOGLOBIN 8.5 g/dl (12.0-15.5); LYMPH # 0.5 10^3/uL (1.5-5.0); LYMPH % 2.7 % (24.0-44.0); MEAN CORPUSCULAR HEMOGLOBIN 31.6 pg (27.0-33.0); MEAN CORPUSCULAR HGB CONC 32.6 g/dl (32.0-36.5); MONO # 0.5 10^3/uL (0.0-0.8); MONO % 2.9 % (2.0-8.0); NEUTROPHILS # 16.9 10^3/uL (1.5-8.5); NEUTROPHILS % 92.9 % (36.0-66.0); PLATELET COUNT, AUTOMATED 163 10^3/uL (150-450); RED BLOOD COUNT 2.69 10^6/uL (4.00-5.40); WHITE BLOOD COUNT 18.2 10^3/uL (4.0-10.0)
[2021-09-26 06:59] LABS: CALCIUM LEVEL 8.1 MG/DL (8.8-10.2); CREATININE FOR GFR 1.25 MG/DL (0.55-1.30); GLOMERULAR FILTRATION RATE 44.4 (>39); POTASSIUM SERUM 3.4 MEQ/L (3.5-5.1)
[2021-09-26] MEDS ORDERED: POTASSIUM CHLORIDE 10% LIQ 20 MEQ/15 ML UDC PO ONE (07:20)
[2021-09-26 07:53] VITALS: BP 117/60
[2021-09-26] MEDS: TIOTROPIUM INHALER/CAPSULE (SPIRIVA) INH SCH (08:00)
[2021-09-26] MEDS: SYMBICORT 160/4.5MCG INHALER 6GM INH SCH (08:00)
[2021-09-26] MEDS: IPRATROPIUM 0.5MG/ALBUTEROL 2.5MG INH SOL UD 3ML (DUONEB) NEB SCH ×3 (08:00→15:36)
[2021-09-26] MEDS: DULoxetine 30MG CAPSULE (CYMBALTA) PO SCH (09:16)
[2021-09-26] MEDS: ENOXAPARIN 30MG/0.3ML SYRINGE (J1650 PER 10MG) SC SCH (09:17)
[2021-09-26 12:00] VITALS: BP 134/62
[2021-09-26 16:00] VITALS: BP 148/70
[2021-09-26 16:09] LABS: MYCOPLASMA PNEUMONIAE IgG <100 U/mL (0-99); MYCOPLASMA PNEUMONIAE IgM <770 U/mL (0-769)
[2021-09-26] MEDS ORDERED: AUGM500T34 PO (18:03)
[2021-09-28 15:10] LABS: CHLAMYDIA PNEUMONIAE IgG <1:100 (< 1:100); CHLAMYDIA PNEUMONIAE IgM <1:10 (< 1:10); CHLAMYDIA PSITTACI IgG <1:100 (< 1:100); CHLAMYDIA PSITTACI IgM <1:10 (< 1:10); CHLAMYDIA TRACHOMATIS IgG <1:100 (< 1:100); CHLAMYDIA TRACHOMATIS IgM <1:10 (< 1:10)
== END 2021-09-26 19:00 | disposition left against medical advice (07) | DRG 637 ==
LOC: EDBD 08:39 → M ED 08:39 → M ED INP 19:04 → M PCU 09-25 04:19
PROVIDERS: ADMIT Internal Medicine Nephrology; ATTEND Internal Medicine Nephrology
DX: E11.649 Type 2 diabetes mellitus with hypoglycemia without coma (principal); G93.41 Metabolic encephalopathy; J18.9 Pneumonia, unspecified organism; J96.21 Acute and chronic respiratory failure with hypoxia; E46 Unspecified protein-calorie malnutrition; I50.32 Chronic diastolic (congestive) heart failure; I13.0 Hypertensive heart and chronic kidney disease with heart failure and stage 1 through stage 4 chronic kidney disease, or unspecified chronic kidney disease; J44.0 Chronic obstructive pulmonary disease with (acute) lower respiratory infection; M48.56XA Collapsed vertebra, not elsewhere classified, lumbar region, initial encounter for fracture; J44.9 Chronic obstructive pulmonary disease, unspecified; R68.0 Hypothermia, not associated with low environmental temperature; Z99.81 Dependence on supplemental oxygen; I27.20 Pulmonary hypertension, unspecified; R91.8 Other nonspecific abnormal finding of lung field; M48.061 Spinal stenosis, lumbar region without neurogenic claudication; M51.26 Other intervertebral disc displacement, lumbar region; E11.51 Type 2 diabetes mellitus with diabetic peripheral angiopathy without gangrene; I73.9 Peripheral vascular disease, unspecified; I70.1 Atherosclerosis of renal artery; N18.30 Chronic kidney disease, stage 3 unspecified; E11.22 Type 2 diabetes mellitus with diabetic chronic kidney disease; E78.5 Hyperlipidemia, unspecified; E03.9 Hypothyroidism, unspecified; F32.A Depression, unspecified; F41.9 Anxiety disorder, unspecified; Z85.51 Personal history of malignant neoplasm of bladder; Z98.41 Cataract extraction status, right eye; Z98.42 Cataract extraction status, left eye; Z90.79 Acquired absence of other genital organ(s); Z95.828 Presence of other vascular implants and grafts; F17.200 Nicotine dependence, unspecified, uncomplicated; Z20.822 Contact with and (suspected) exposure to COVID-19; Z79.899 Other long term (current) drug therapy; Z88.1 Allergy status to other antibiotic agents; Z88.2 Allergy status to sulfonamides; Z88.8 Allergy status to other drugs, medicaments and biological substances; Z91.048 Other nonmedicinal substance allergy status; Z91.19 Patient's noncompliance with other medical treatment and regimen

== ENCOUNTER 2021-10-01 10:17 | Inpatient (IN) | payer OTHER ==
[~2021-10-01] VITALS: Ht 157.5 cm; Wt 52.0 kg
[~2021-10-01 10:17] MED LIST changes: +AUGM500T34 PO
[2021-10-01 11:21] LABS: ABG BASE EXCESS -13.4 (-2.0-2.0); ABG O2 SATURATION 89.2 % (95.0-99.0); ABG PARTIAL PRESSURE CO2 38.3 mmHg (35.0-45.0); ABG PARTIAL PRESSURE O2 69.2 mmHg (75.0-100.0); ABG STANDARD HCO3 13.7 MEQ/L (22.0-26.0); ABG TOTAL CO2 15.2 MEQ/L (23.0-31.0)
[2021-10-01 11:28] LABS: BASO # 0.1 10^3/uL (0.0-0.2); BASO % 0.4 % (0.0-1.0); EOS # 0.1 10^3/uL (0.0-0.5); EOS % 0.8 % (0.0-3.0); HEMATOCRIT 26.9 % (36.0-47.0); HEMOGLOBIN 8.7 g/dl (12.0-15.5); LYMPH # 0.7 10^3/uL (1.5-5.0); LYMPH % 5.1 % (24.0-44.0); MEAN CORPUSCULAR HEMOGLOBIN 31.9 pg (27.0-33.0); MEAN CORPUSCULAR HGB CONC 32.3 g/dl (32.0-36.5); MEAN CORPUSCULAR VOLUME 98.5 fl (80.0-96.0); MONO # 0.7 10^3/uL (0.0-0.8); MONO % 5.7 % (2.0-8.0); NEUTROPHILS # 11.4 10^3/uL (1.5-8.5); NEUTROPHILS % 87.7 % (36.0-66.0); PLATELET COUNT, AUTOMATED 194 10^3/uL (150-450); RED BLOOD COUNT 2.73 10^6/uL (4.00-5.40)
[2021-10-01 11:46] LABS: PROTHROMBIN TIME 13.6 SECONDS (12.7-14.5)
[2021-10-01] MEDS ORDERED: cefTRIAXone SOD 2 GM in D5W MINI-BAG PLUS 50 ML IV ONE (11:50)
[2021-10-01] MEDS ORDERED: NS 1,470 ML in IV 1 EA IV ONE (11:50)
[2021-10-01 12:04] LABS: CK-MB VALUE MASS 6.8 NG/ML (<3.6); MB/CK RELATIVE INDEX 11.33 (< OR =4)
[2021-10-01 12:12] LABS: ALBUMIN 2.2 GM/DL (3.2-5.2); ALT/SGPT 25 U/L (12-78); BILIRUBIN,DIRECT < 0.1 MG/DL (0.0-0.2); BILIRUBIN,TOTAL 0.4 MG/DL (0.2-1.0); BLOOD UREA NITROGEN 22 MG/DL (7-18); CALCIUM LEVEL 8.7 MG/DL (8.8-10.2); CARBON DIOXIDE LEVEL 16 MEQ/L (21-32); CHLORIDE LEVEL 112 MEQ/L (98-107); CREATININE FOR GFR 1.21 MG/DL (0.55-1.30); GLOMERULAR FILTRATION RATE 46.1 (>39); GLUCOSE, FASTING 58 MG/DL (70-100); NT-PRO BNP 22705 PG/ML (<450); POTASSIUM SERUM 3.3 MEQ/L (3.5-5.1); SODIUM LEVEL 143 MEQ/L (136-145); THYROXINE (T4) 6.5 UG/DL (4.5-12.0)
[2021-10-01 12:47] LABS: D-DIMER QUANT > 4000 ng/ml (<500)
[2021-10-01] MEDS ORDERED: ISOVUE-370 76% 100ML VIAL As Ordered ONE (13:36)
[2021-10-01] MEDS ORDERED: HOME MED LIST COMPLETE! XX SCH (16:20)
[2021-10-01] MEDS ORDERED: methylPREDNISolone 40MG 1ML VIAL IV ONE (18:15)
[2021-10-01 18:39] LABS: ABG BASE EXCESS -11.7 (-2.0-2.0); ABG HCO3 15.1 MEQ/L (22.0-26.0); ABG O2 SATURATION 98.8 % (95.0-99.0); ABG PARTIAL PRESSURE CO2 37.4 mmHg (35.0-45.0); ABG PARTIAL PRESSURE O2 192.2 mmHg (75.0-100.0); ABG STANDARD HCO3 15.1 MEQ/L (22.0-26.0); ABG TOTAL CO2 16.2 MEQ/L (23.0-31.0)
[2021-10-01 18:40] LABS: ABG pH (ARTERIAL) 7.223 UNITS (7.350-7.450)
[2021-10-01] MEDS ORDERED: GLUCAGON INJ 1MG VIAL SC PRN (19:25)
[2021-10-01] MEDS ORDERED: DEXTROSE 50% 50 ML SYRINGE IV PRN (19:25)
[2021-10-01] MEDS ORDERED: GLUCOSE 4GM CHEW TABLET PO PRN (19:25)
[2021-10-01] MEDS ORDERED: ACETAMINOPHEN TAB 650MG DOSE (2X325MG) PO PRN (19:45)
[2021-10-01] MEDS ORDERED: POTASSIUM CHLORIDE 10MEQ SR TABLET PO ONE (19:50)
[2021-10-01] MEDS: IPRATROPIUM 0.5MG/ALBUTEROL 2.5MG INH SOL UD 3ML (DUONEB) NEB SCH (20:00)
[2021-10-01] MEDS: FUROSEMIDE 40MG/4ML VIAL (J1940) IV SCH (20:19)
[2021-10-01] MEDS: ATORVASTATIN 20 MG TAB PO SCH (20:20)
[2021-10-01] MEDS: GABAPENTIN 100 MG CAP PO SCH (20:20)
[2021-10-01 21:42] LABS: CALCIUM LEVEL 8.4 MG/DL (8.8-10.2); CREATININE FOR GFR 1.17 MG/DL (0.55-1.30); GLOMERULAR FILTRATION RATE 47.9 (>39); POTASSIUM SERUM 3.3 MEQ/L (3.5-5.1)
[2021-10-01] MEDS: SODIUM BICARBONATE 325 MG TAB PO SCH (22:10)
[2021-10-01 22:36] LABS: FREE T4 0.8 NG/DL (0.76-1.46); THYROID STIMULATING HORMONE 17.9 uIU/ML (0.358-3.740)
[2021-10-02] VITALS (7 sets, daily range): BP systolic 103–160; BP diastolic 55–74
[2021-10-02] MEDS: IPRATROPIUM 0.5MG/ALBUTEROL 2.5MG INH SOL UD 3ML (DUONEB) NEB SCH ×3 (03:53→08:00)
[2021-10-02] MEDS: LEVOTHYROXINE 100MCG TABLET (0.1MG) PO SCH (05:17)
[2021-10-02] MEDS: HEPARIN SOD (PORCINE) 5000UNITS/ML 1ML VIAL/SYRINGE SQ SCH ×3 (05:19→21:22)
[2021-10-02 07:15] LABS: ALBUMIN 2.4 GM/DL (3.2-5.2); ALT/SGPT 28 U/L (12-78); BILIRUBIN,TOTAL 0.3 MG/DL (0.2-1.0); BLOOD UREA NITROGEN 23 MG/DL (7-18); CALCIUM LEVEL 8.4 MG/DL (8.8-10.2); CARBON DIOXIDE LEVEL 13 MEQ/L (21-32); CHLORIDE LEVEL 110 MEQ/L (98-107); CREATININE FOR GFR 1.28 MG/DL (0.55-1.30); GLOMERULAR FILTRATION RATE 43.2 (>39); GLUCOSE, FASTING 85 MG/DL (70-100); POTASSIUM SERUM 3.9 MEQ/L (3.5-5.1); SODIUM LEVEL 141 MEQ/L (136-145); TOTAL PROTEIN 5.2 GM/DL (6.4-8.2)
[2021-10-02] MEDS: DIAPER RELIEF PASTE (DESITIN) 60GM TOP SCH (09:00)
[2021-10-02 09:21] LABS: BASO % 0.2 % (0.0-1.0); HEMATOCRIT 26.1 % (36.0-47.0); HEMOGLOBIN 8.3 g/dl (12.0-15.5); LYMPH # 0.4 10^3/uL (1.5-5.0); MEAN CORPUSCULAR HEMOGLOBIN 31.8 pg (27.0-33.0); MEAN CORPUSCULAR HGB CONC 31.8 g/dl (32.0-36.5); MONO % 0.2 % (2.0-8.0); NEUTROPHILS # 12.4 10^3/uL (1.5-8.5); NEUTROPHILS % 96.1 % (36.0-66.0); PLATELET COUNT, AUTOMATED 152 10^3/uL (150-450); RED BLOOD COUNT 2.61 10^6/uL (4.00-5.40); WHITE BLOOD COUNT 12.9 10^3/uL (4.0-10.0)
[2021-10-02] MEDS: SODIUM BICARBONATE 325 MG TAB PO SCH (09:32)
[2021-10-02] MEDS: predniSONE 20 MG TAB PO SCH (09:33)
[2021-10-02] MEDS: FUROSEMIDE 40MG/4ML VIAL (J1940) IV SCH (09:33)
[2021-10-02] MEDS: DULoxetine 30MG CAPSULE (CYMBALTA) PO SCH (09:33)
[2021-10-02 09:39] LABS: ACETONE/KETONE > 46.00 MG/DL (<2.81)
[2021-10-02] MEDS ORDERED: D5W/0.45% SODIUM CHLORIDE 1,000 ML IV SCH ×2 (10:30→23:31)
[2021-10-02] MEDS ORDERED: SODIUM BICARBONATE 8.4% INJ 50 ML SYRINGE IV STA (10:39)
[2021-10-02 10:59] LABS: ABG BASE EXCESS -15.4 (-2.0-2.0); ABG HCO3 11.6 MEQ/L (22.0-26.0); ABG O2 SATURATION 96.9 % (95.0-99.0); ABG PARTIAL PRESSURE CO2 31.3 mmHg (35.0-45.0); ABG PARTIAL PRESSURE O2 109.4 mmHg (75.0-100.0); ABG STANDARD HCO3 12.4 MEQ/L (22.0-26.0); ABG TOTAL CO2 12.5 MEQ/L (23.0-31.0)
[2021-10-02] MEDS ORDERED: LevoFLOXacin IV 750 MG in IV 1 EA IV SCH (11:00)
[2021-10-02 11:03] LABS: ABG pH (ARTERIAL) 7.186 UNITS (7.350-7.450)
[2021-10-02] MEDS: ALBUTEROL SULFATE 2.5 MG/0.5 ML INH NEB SOLN NEB SCH ×5 (11:57→23:51)
[2021-10-02 12:48] LABS: VENOUS BASE EXCESS -12.1 (-2.0-2.0); VENOUS HCO3 14.1 MEQ/L (23.0-27.0); VENOUS O2 SATURATION 99.1 % (60.0-80.0); VENOUS PARTIAL PRESSURE CO2 32.7 mmHg (38.0-50.0); VENOUS PH 7.251 UNITS (7.330-7.430); VENOUS STANDARD HCO3 14.8 MEQ/L; VENOUS TOTAL CO2 15.1 MEQ/L (24.0-28.0)
[2021-10-02 13:04] LABS: CALCIUM LEVEL 8.8 MG/DL (8.8-10.2); CREATININE FOR GFR 1.4 MG/DL (0.55-1.30); GLOMERULAR FILTRATION RATE 38.9 (>39); POTASSIUM SERUM 4.1 MEQ/L (3.5-5.1)
[2021-10-02 16:39] LABS: VENOUS BASE EXCESS -10.3 (-2.0-2.0); VENOUS HCO3 15.1 MEQ/L (23.0-27.0); VENOUS O2 SATURATION 98.4 % (60.0-80.0); VENOUS PARTIAL PRESSURE CO2 31.2 mmHg (38.0-50.0); VENOUS PARTIAL PRESSURE O2 142.2 mmHg (30.0-50.0); VENOUS PH 7.303 UNITS (7.330-7.430); VENOUS STANDARD HCO3 16.1 MEQ/L; VENOUS TOTAL CO2 16.1 MEQ/L (24.0-28.0)
[2021-10-02 17:18] LABS: CALCIUM LEVEL 8.4 MG/DL (8.8-10.2); CREATININE FOR GFR 1.36 MG/DL (0.55-1.30); GLOMERULAR FILTRATION RATE 40.2 (>39); POTASSIUM SERUM 3.8 MEQ/L (3.5-5.1)
[2021-10-02] MEDS: ATORVASTATIN 20 MG TAB PO SCH (19:01)
[2021-10-02] MEDS: GABAPENTIN 100 MG CAP PO SCH (19:01)
[2021-10-02] MEDS ORDERED: NS 0.45% 1,000 ML IV SCH (19:49)
[2021-10-02] MEDS ORDERED: INSULIN LISPRO (NovoLOG) PER UNIT SC SCH (21:00)
[2021-10-02] MEDS ORDERED: GLUCOSE 4GM CHEW TABLET PO PRN (23:35)
[2021-10-02] MEDS ORDERED: GLUCAGON INJ 1MG VIAL SC PRN (23:35)
[2021-10-02] MEDS ORDERED: DEXTROSE 50% 50 ML SYRINGE IV PRN (23:35)
[2021-10-02] MEDS ORDERED: LEVEMIR (INSULIN DETEMIR) 1 UNITS/0.01ML SC ONE (23:35)
[2021-10-03] VITALS (31 sets, daily range): BP systolic 145–167; BP diastolic 63–73; O2SAT 76–100
[2021-10-03] MEDS ORDERED: RAMELTEON 8 MG TAB (ROZEREM) PO ONE
[2021-10-03 00:39] LABS: VENOUS BASE EXCESS -6.1 (-2.0-2.0); VENOUS O2 SATURATION 98.7 % (60.0-80.0); VENOUS PARTIAL PRESSURE O2 161.1 mmHg (30.0-50.0); VENOUS PH 7.341 UNITS (7.330-7.430); VENOUS STANDARD HCO3 19.4 MEQ/L; VENOUS TOTAL CO2 20.1 MEQ/L (24.0-28.0)
[2021-10-03 01:13] LABS: CALCIUM LEVEL 7.9 MG/DL (8.8-10.2); CREATININE FOR GFR 1.46 MG/DL (0.55-1.30); GLOMERULAR FILTRATION RATE 37.1 (>39); POTASSIUM SERUM 3.4 MEQ/L (3.5-5.1)
[2021-10-03] MEDS: ALBUTEROL SULFATE 2.5 MG/0.5 ML INH NEB SOLN NEB SCH ×5 (04:00→20:00)
[2021-10-03 05:46] LABS: BASO % 0.1 % (0.0-1.0); LYMPH # 0.4 10^3/uL (1.5-5.0); LYMPH % 3.4 % (24.0-44.0); MEAN CORPUSCULAR HEMOGLOBIN 30.6 pg (27.0-33.0); MEAN CORPUSCULAR HGB CONC 31.8 g/dl (32.0-36.5); MEAN CORPUSCULAR VOLUME 96.2 fl (80.0-96.0); MONO # 0.8 10^3/uL (0.0-0.8); MONO % 6.8 % (2.0-8.0); NEUTROPHILS # 10.4 10^3/uL (1.5-8.5); PLATELET COUNT, AUTOMATED 143 10^3/uL (150-450); RED BLOOD COUNT 2.09 10^6/uL (4.00-5.40); WHITE BLOOD COUNT 11.7 10^3/uL (4.0-10.0)
[2021-10-03 05:52] LABS: HEMATOCRIT 20.1 % (36.0-47.0); HEMOGLOBIN 6.4 g/dl (12.0-15.5)
[2021-10-03] MEDS: LEVOTHYROXINE 100MCG TABLET (0.1MG) PO SCH (05:54)
[2021-10-03] MEDS: HEPARIN SOD (PORCINE) 5000UNITS/ML 1ML VIAL/SYRINGE SQ SCH ×3 (05:55→22:09)
[2021-10-03 06:07] LABS: ALBUMIN 2.2 GM/DL (3.2-5.2); BILIRUBIN,TOTAL 0.2 MG/DL (0.2-1.0); CALCIUM LEVEL 7.8 MG/DL (8.8-10.2); CREATININE FOR GFR 1.74 MG/DL (0.55-1.30); GLOMERULAR FILTRATION RATE 30.3 (>39); MAGNESIUM LEVEL 1.6 MG/DL (1.8-2.4); POTASSIUM SERUM 3.2 MEQ/L (3.5-5.1); TOTAL PROTEIN 4.7 GM/DL (6.4-8.2)
[2021-10-03] MEDS ORDERED: INSULIN LISPRO (NovoLOG) PER UNIT SC SCH (07:30)
[2021-10-03] MEDS: INSULIN LISPRO (NovoLOG) PER UNIT SC SCH ×4 (08:00→23:52)
[2021-10-03] MEDS ORDERED: POTASSIUM CHLORIDE 10MEQ SR TABLET PO ONE (08:00)
[2021-10-03 08:23] LABS: HEMATOCRIT 20.9 % (36.0-47.0); HEMOGLOBIN 6.8 g/dl (12.0-15.5)
[2021-10-03] MEDS: predniSONE 20 MG TAB PO SCH (08:25)
[2021-10-03] MEDS: DULoxetine 30MG CAPSULE (CYMBALTA) PO SCH (08:25)
[2021-10-03] MEDS: MAG SULF 1GM/100ML (MAG RUN) 1 GM in IV 1 EA IV SCH ×2 (08:26→09:42)
[2021-10-03] MEDS: DIAPER RELIEF PASTE (DESITIN) 60GM TOP SCH (08:26)
[2021-10-03] MEDS: **hydrALAZINE HCL** 25 MG TAB PO SCH ×3 (09:00→22:09)
[2021-10-03 11:53] LABS: ABG BASE EXCESS -1.7 (-2.0-2.0); ABG HCO3 24.2 MEQ/L (22.0-26.0); ABG O2 SATURATION 86.7 % (95.0-99.0); ABG PARTIAL PRESSURE CO2 47.7 mmHg (35.0-45.0); ABG STANDARD HCO3 22.9 MEQ/L (22.0-26.0); ABG TOTAL CO2 25.7 MEQ/L (23.0-31.0); ABG pH (ARTERIAL) 7.324 UNITS (7.350-7.450)
[2021-10-03] MEDS ORDERED: FUROSEMIDE 100MG/10ML VIAL (J1940) IV ONE (16:10)
[2021-10-03] MEDS ORDERED: VANCOMYCIN HCL IV SCH (16:15)
[2021-10-03] MEDS ORDERED: FLUID PLACE HOLDER IV SCH (16:15)
[2021-10-03] MEDS: GABAPENTIN 100 MG CAP PO SCH (17:16)
[2021-10-03] MEDS: ATORVASTATIN 20 MG TAB PO SCH (17:16)
[2021-10-03] MEDS ORDERED: VANCOMYCIN HCL 750 MG, VIAL MATE ADAPTER 1 EACH in D5W 250 ML IV ONE (18:00)
[2021-10-03 19:48] LABS: BASO % 0.1 % (0.0-1.0); EOS % 0.1 % (0.0-3.0); HEMATOCRIT 30.7 % (36.0-47.0); HEMOGLOBIN 10.5 g/dl (12.0-15.5); LYMPH # 0.3 10^3/uL (1.5-5.0); LYMPH % 1.9 % (24.0-44.0); MEAN CORPUSCULAR HEMOGLOBIN 31.6 pg (27.0-33.0); MEAN CORPUSCULAR HGB CONC 34.2 g/dl (32.0-36.5); MEAN CORPUSCULAR VOLUME 92.5 fl (80.0-96.0); MONO # 0.4 10^3/uL (0.0-0.8); MONO % 2.4 % (2.0-8.0); RED BLOOD COUNT 3.32 10^6/uL (4.00-5.40); WHITE BLOOD COUNT 14.7 10^3/uL (4.0-10.0)
[2021-10-03 20:28] LABS: PLATELET COUNT, AUTOMATED 112 10^3/uL (150-450)
[2021-10-04] VITALS (15 sets, daily range): BP systolic 152–176; BP diastolic 69–84; O2SAT 87–98
[2021-10-04] MEDS: ALBUTEROL SULFATE 2.5 MG/0.5 ML INH NEB SOLN NEB SCH ×6 (04:00→19:46)
[2021-10-04] MEDS: HEPARIN SOD (PORCINE) 5000UNITS/ML 1ML VIAL/SYRINGE SQ SCH ×3 (05:45→21:21)
[2021-10-04] MEDS: LEVOTHYROXINE 100MCG TABLET (0.1MG) PO SCH (05:45)
[2021-10-04] MEDS: INSULIN LISPRO (NovoLOG) PER UNIT SC SCH ×3 (05:46→17:16)
[2021-10-04] MEDS ORDERED: ALBUTEROL SULFATE 2.5 MG/0.5 ML INH NEB SOLN NEB ONE (07:00)
[2021-10-04 07:22] LABS: BASO % 0.1 % (0.0-1.0); HEMATOCRIT 33.4 % (36.0-47.0); HEMOGLOBIN 11.2 g/dl (12.0-15.5); LYMPH # 0.3 10^3/uL (1.5-5.0); LYMPH % 2.4 % (24.0-44.0); MEAN CORPUSCULAR HGB CONC 33.5 g/dl (32.0-36.5); MEAN CORPUSCULAR VOLUME 92.5 fl (80.0-96.0); MONO # 0.3 10^3/uL (0.0-0.8); MONO % 2.5 % (2.0-8.0); NEUTROPHILS # 12.2 10^3/uL (1.5-8.5); NEUTROPHILS % 94.3 % (36.0-66.0); PLATELET COUNT, AUTOMATED 103 10^3/uL (150-450); RED BLOOD COUNT 3.61 10^6/uL (4.00-5.40); WHITE BLOOD COUNT 12.9 10^3/uL (4.0-10.0)
[2021-10-04 07:57] LABS: ALBUMIN 2.5 GM/DL (3.2-5.2); BILIRUBIN,TOTAL 0.4 MG/DL (0.2-1.0); CALCIUM LEVEL 8.4 MG/DL (8.8-10.2); CREATININE FOR GFR 1.71 MG/DL (0.55-1.30); GLOMERULAR FILTRATION RATE 30.9 (>39); MAGNESIUM LEVEL 2.1 MG/DL (1.8-2.4)
[2021-10-04] MEDS ORDERED: VANCOMYCIN HCL 500 MG in D5W MINI-BAG PLUS 100 ML IV SCH (08:00)
[2021-10-04] MEDS: DULoxetine 30MG CAPSULE (CYMBALTA) PO SCH (08:18)
[2021-10-04] MEDS: predniSONE 20 MG TAB PO SCH (08:19)
[2021-10-04] MEDS: **hydrALAZINE HCL** 25 MG TAB PO SCH ×3 (08:19→21:21)
[2021-10-04] MEDS: DIAPER RELIEF PASTE (DESITIN) 60GM TOP SCH (08:21)
[2021-10-04] MEDS: FERROUS SULFATE 300MG/5ML UDC LIQUID PO SCH (09:42)
[2021-10-04 12:12] LABS: FOLATE 9.4 NG/ML (>5.4)
[2021-10-04] MEDS: LevoFLOXacin 750 MG TABLET PO SCH (12:41)
[2021-10-04 14:08] LABS: MYCOPLASMA PNEUMONIAE IgG 144 U/mL (0-99); MYCOPLASMA PNEUMONIAE IgM <770 U/mL (0-769)
[2021-10-04] MEDS: ATORVASTATIN 20 MG TAB PO SCH (17:15)
[2021-10-04] MEDS: GABAPENTIN 100 MG CAP PO SCH (17:15)
[2021-10-04] MEDS: DOXYCYCLINE HYCLATE 100MG TABLET PO SCH (21:21)
[2021-10-05] MEDS: ALBUTEROL SULFATE 2.5 MG/0.5 ML INH NEB SOLN NEB SCH ×7 (00:04→22:43)
[2021-10-05] MEDS: INSULIN LISPRO (NovoLOG) PER UNIT SC SCH ×5 (00:05→23:05)
[2021-10-05 00:14] VITALS: BP 158/97
[2021-10-05 03:54] VITALS: BP 154/68
[2021-10-05] MEDS: LEVOTHYROXINE 100MCG TABLET (0.1MG) PO SCH (05:58)
[2021-10-05] MEDS: HEPARIN SOD (PORCINE) 5000UNITS/ML 1ML VIAL/SYRINGE SQ SCH ×3 (05:58→21:01)
[2021-10-05 06:13] LABS: BASO % 0.1 % (0.0-1.0); HEMATOCRIT 33.1 % (36.0-47.0); HEMOGLOBIN 11.3 g/dl (12.0-15.5); LYMPH # 0.3 10^3/uL (1.5-5.0); LYMPH % 2.3 % (24.0-44.0); MEAN CORPUSCULAR HGB CONC 34.1 g/dl (32.0-36.5); MEAN CORPUSCULAR VOLUME 93.8 fl (80.0-96.0); MONO # 0.5 10^3/uL (0.0-0.8); MONO % 4.1 % (2.0-8.0); NEUTROPHILS # 11.3 10^3/uL (1.5-8.5); NEUTROPHILS % 92.2 % (36.0-66.0); PLATELET COUNT, AUTOMATED 100 10^3/uL (150-450); RED BLOOD COUNT 3.53 10^6/uL (4.00-5.40); WHITE BLOOD COUNT 12.3 10^3/uL (4.0-10.0)
[2021-10-05 07:23] LABS: ALBUMIN 2.5 GM/DL (3.2-5.2); BILIRUBIN,TOTAL 0.3 MG/DL (0.2-1.0); CREATININE FOR GFR 1.81 MG/DL (0.55-1.30); GLOMERULAR FILTRATION RATE 28.9 (>39); MAGNESIUM LEVEL 2.1 MG/DL (1.8-2.4); POTASSIUM SERUM 4.3 MEQ/L (3.5-5.1); TOTAL PROTEIN 5.1 GM/DL (6.4-8.2)
[2021-10-05 08:00] VITALS: BP 178/80
[2021-10-05] MEDS: predniSONE 10 MG TAB PO SCH (08:28)
[2021-10-05] MEDS: DOXYCYCLINE HYCLATE 100MG TABLET PO SCH ×2 (08:28→20:24)
[2021-10-05] MEDS: DULoxetine 30MG CAPSULE (CYMBALTA) PO SCH (08:28)
[2021-10-05] MEDS: FERROUS SULFATE 300MG/5ML UDC LIQUID PO SCH (08:29)
[2021-10-05] MEDS: DIAPER RELIEF PASTE (DESITIN) 60GM TOP SCH (08:29)
[2021-10-05] MEDS: **hydrALAZINE HCL** 25 MG TAB PO SCH ×3 (08:29→20:25)
[2021-10-05] MEDS ORDERED: FUROSEMIDE 100MG/10ML VIAL (J1940) IV ONE (09:35)
[2021-10-05 16:21] VITALS: BP 160/73
[2021-10-05] MEDS: ATORVASTATIN 20 MG TAB PO SCH (17:33)
[2021-10-05] MEDS: GABAPENTIN 100 MG CAP PO SCH (17:34)
[2021-10-05 19:56] VITALS: BP 150/69
[2021-10-06 03:40] VITALS: BP 158/90
[2021-10-06] MEDS: ALBUTEROL SULFATE 2.5 MG/0.5 ML INH NEB SOLN NEB SCH ×4 (04:00→15:22)
[2021-10-06] MEDS: HEPARIN SOD (PORCINE) 5000UNITS/ML 1ML VIAL/SYRINGE SQ SCH ×2 (05:21→13:33)
[2021-10-06] MEDS: LevoFLOXacin 750 MG TABLET PO SCH (05:22)
[2021-10-06] MEDS: INSULIN LISPRO (NovoLOG) PER UNIT SC SCH ×2 (05:22→13:32)
[2021-10-06] MEDS: LEVOTHYROXINE 100MCG TABLET (0.1MG) PO SCH (05:22)
[2021-10-06 05:58] LABS: BASO % 0.1 % (0.0-1.0); HEMATOCRIT 31.4 % (36.0-47.0); HEMOGLOBIN 10.5 g/dl (12.0-15.5); LYMPH # 0.5 10^3/uL (1.5-5.0); MEAN CORPUSCULAR HEMOGLOBIN 31.3 pg (27.0-33.0); MEAN CORPUSCULAR HGB CONC 33.4 g/dl (32.0-36.5); MEAN CORPUSCULAR VOLUME 93.7 fl (80.0-96.0); MONO # 0.4 10^3/uL (0.0-0.8); MONO % 3.1 % (2.0-8.0); NEUTROPHILS # 10.3 10^3/uL (1.5-8.5); NEUTROPHILS % 91.6 % (36.0-66.0); RED BLOOD COUNT 3.35 10^6/uL (4.00-5.40); WHITE BLOOD COUNT 11.3 10^3/uL (4.0-10.0)
[2021-10-06 06:28] LABS: ALBUMIN 2.4 GM/DL (3.2-5.2); BILIRUBIN,TOTAL 0.3 MG/DL (0.2-1.0); CALCIUM LEVEL 8.2 MG/DL (8.8-10.2); CREATININE FOR GFR 1.78 MG/DL (0.55-1.30); GLOMERULAR FILTRATION RATE 29.5 (>39); MAGNESIUM LEVEL 1.8 MG/DL (1.8-2.4); POTASSIUM SERUM 3.9 MEQ/L (3.5-5.1); TOTAL PROTEIN 4.7 GM/DL (6.4-8.2)
[2021-10-06 06:37] LABS: PLATELET COUNT, AUTOMATED 90 10^3/uL (150-450)
[2021-10-06 07:52] VITALS: BP 149/67
[2021-10-06 09:52] VITALS: BP 149/67
[2021-10-06] MEDS: FERROUS SULFATE 300MG/5ML UDC LIQUID PO SCH (09:52)
[2021-10-06] MEDS: predniSONE 10 MG TAB PO SCH (09:52)
[2021-10-06] MEDS: **hydrALAZINE HCL** 25 MG TAB PO SCH (09:52)
[2021-10-06] MEDS: DOXYCYCLINE HYCLATE 100MG TABLET PO SCH (09:53)
[2021-10-06] MEDS: DIAPER RELIEF PASTE (DESITIN) 60GM TOP SCH (09:53)
[2021-10-06] MEDS: DULoxetine 30MG CAPSULE (CYMBALTA) PO SCH (09:53)
[2021-10-06 11:15] VITALS: BP 124/75
== END 2021-10-06 15:57 | disposition left against medical advice (07) | DRG 189 ==
LOC: M ED 10:17 → EDBD 10:17 → M ED INP 19:18 → M PCU 10-02 02:01 → M MSPAV 10-06 11:01
PROVIDERS: ADMIT Internal Medicine; ATTEND Internal Medicine
PROC: 30233N1 Transfusion of Nonautologous Red Blood Cells into Peripheral Vein, Percutaneous Approach (ICD-10-PCS; principal; 2021-10-03)
DX: J96.21 Acute and chronic respiratory failure with hypoxia (principal); J18.9 Pneumonia, unspecified organism; I50.33 Acute on chronic diastolic (congestive) heart failure; E43 Unspecified severe protein-calorie malnutrition; I13.0 Hypertensive heart and chronic kidney disease with heart failure and stage 1 through stage 4 chronic kidney disease, or unspecified chronic kidney disease; S22.31XK Fracture of one rib, right side, subsequent encounter for fracture with nonunion; J44.1 Chronic obstructive pulmonary disease with (acute) exacerbation; J44.0 Chronic obstructive pulmonary disease with (acute) lower respiratory infection; E87.2 Acidosis; R64 Cachexia; I27.20 Pulmonary hypertension, unspecified; E11.649 Type 2 diabetes mellitus with hypoglycemia without coma; R91.8 Other nonspecific abnormal finding of lung field; M48.061 Spinal stenosis, lumbar region without neurogenic claudication; M51.26 Other intervertebral disc displacement, lumbar region; E11.51 Type 2 diabetes mellitus with diabetic peripheral angiopathy without gangrene; N18.30 Chronic kidney disease, stage 3 unspecified; E03.9 Hypothyroidism, unspecified; F41.9 Anxiety disorder, unspecified; D64.9 Anemia, unspecified; R33.9 Retention of urine, unspecified; F32.A Depression, unspecified; F17.200 Nicotine dependence, unspecified, uncomplicated; R68.0 Hypothermia, not associated with low environmental temperature; R53.81 Other malaise; I70.1 Atherosclerosis of renal artery; M19.90 Unspecified osteoarthritis, unspecified site; E78.5 Hyperlipidemia, unspecified; E11.65 Type 2 diabetes mellitus with hyperglycemia; D69.6 Thrombocytopenia, unspecified; Z85.51 Personal history of malignant neoplasm of bladder; G31.84 Mild cognitive impairment of uncertain or unknown etiology; Z90.2 Acquired absence of lung [part of]; N26.1 Atrophy of kidney (terminal); Z79.890 Hormone replacement therapy; Z79.899 Other long term (current) drug therapy; Z88.2 Allergy status to sulfonamides; Z88.8 Allergy status to other drugs, medicaments and biological substances; Z88.5 Allergy status to narcotic agent; M79.89 Other specified soft tissue disorders; Z99.81 Dependence on supplemental oxygen

== ENCOUNTER 2021-10-08 13:39 | Inpatient (IN) | payer OTHER ==
[~2021-10-08] VITALS: Ht 157.5 cm; Wt 62.8 kg
[2021-10-08] MEDS: BACITRACIN OINTMENT 30GM TUBE TOP SCH (00:28)
[2021-10-08 14:45] LABS: ABG BASE EXCESS -0.7 (-2.0-2.0); ABG HCO3 24.9 MEQ/L (22.0-26.0); ABG PARTIAL PRESSURE CO2 44.5 mmHg (35.0-45.0); ABG PARTIAL PRESSURE O2 163.8 mmHg (75.0-100.0); ABG STANDARD HCO3 23.9 MEQ/L (22.0-26.0); ABG TOTAL CO2 26.2 MEQ/L (23.0-31.0); ABG pH (ARTERIAL) 7.365 UNITS (7.350-7.450)
[2021-10-08 14:53] LABS: BASO % 0.2 % (0.0-1.0); EOS # 0.2 10^3/uL (0.0-0.5); EOS % 1.3 % (0.0-3.0); HEMATOCRIT 37.9 % (36.0-47.0); HEMOGLOBIN 12.5 g/dl (12.0-15.5); LYMPH # 0.6 10^3/uL (1.5-5.0); LYMPH % 4.1 % (24.0-44.0); MEAN CORPUSCULAR HEMOGLOBIN 31.6 pg (27.0-33.0); MEAN CORPUSCULAR VOLUME 95.7 fl (80.0-96.0); MONO # 0.5 10^3/uL (0.0-0.8); MONO % 3.4 % (2.0-8.0); NEUTROPHILS # 13.4 10^3/uL (1.5-8.5); NEUTROPHILS % 90.1 % (36.0-66.0); PLATELET COUNT, AUTOMATED 117 10^3/uL (150-450); RED BLOOD COUNT 3.96 10^6/uL (4.00-5.40); WHITE BLOOD COUNT 14.9 10^3/uL (4.0-10.0)
[2021-10-08 15:18] LABS: CALCIUM LEVEL 8.6 MG/DL (8.8-10.2); CREATININE FOR GFR 1.53 MG/DL (0.55-1.30); GLOMERULAR FILTRATION RATE 35.1 (>39); POTASSIUM SERUM 4.1 MEQ/L (3.5-5.1)
[2021-10-08 15:26] LABS: RSV AMPLIFICATION NEGATIVE (NEGATIVE)
[2021-10-08] MEDS ORDERED: TETRACAINE 0.5% OPHTH SOLN 4ML OU ONE (15:35)
[2021-10-08] MEDS ORDERED: FLUORESCEIN OPHTH 1 MG STRIP OU ONE (15:35)
[2021-10-08] MEDS ORDERED: FUROSEMIDE 40MG/4ML VIAL (J1940) IV ONE (18:15)
[2021-10-08] MEDS ORDERED: HYDR-643 PO (19:06)
[2021-10-08] MEDS ORDERED: ALBUTEROL SULFATE 2.5 MG/0.5 ML INH NEB SOLN NEB PRN (19:30)
[2021-10-08] MEDS: SYMBICORT 160/4.5MCG INHALER 6GM INH SCH (20:00)
[2021-10-08] MEDS ORDERED: HOME MED LIST COMPLETE! XX SCH (20:25)
[2021-10-08] MEDS: NICOTINE 21MG/24HR 1 EA TRANSDERMAL TD SCH (20:59)
[2021-10-08 22:50] VITALS: BP 164/72
[2021-10-09] VITALS (19 sets, daily range): BP systolic 102–178; BP diastolic 56–89
[2021-10-09] MEDS ORDERED: IPRATROPIUM 0.5MG/ALBUTEROL 2.5MG INH SOL UD 3ML (DUONEB) NEB ONE (05:20)
[2021-10-09] MEDS ORDERED: FUROSEMIDE 40MG/4ML VIAL (J1940) IV ONE (05:45)
[2021-10-09] MEDS ORDERED: **hydrALAZINE HCL** 25 MG TAB PO ONE (06:30)
[2021-10-09] MEDS ORDERED: ALBUTEROL SULFATE 2.5 MG/0.5 ML INH NEB SOLN INH PRN (06:30)
[2021-10-09 06:49] LABS: BASO % 0.1 % (0.0-1.0); EOS # 0.1 10^3/uL (0.0-0.5); HEMOGLOBIN 11.2 g/dl (12.0-15.5); LYMPH # 0.4 10^3/uL (1.5-5.0); LYMPH % 2.9 % (24.0-44.0); MEAN CORPUSCULAR HEMOGLOBIN 30.8 pg (27.0-33.0); MEAN CORPUSCULAR VOLUME 96.2 fl (80.0-96.0); MONO # 0.5 10^3/uL (0.0-0.8); MONO % 3.8 % (2.0-8.0); NEUTROPHILS # 11.4 10^3/uL (1.5-8.5); NEUTROPHILS % 91.3 % (36.0-66.0); PLATELET COUNT, AUTOMATED 100 10^3/uL (150-450); RED BLOOD COUNT 3.64 10^6/uL (4.00-5.40); WHITE BLOOD COUNT 12.5 10^3/uL (4.0-10.0)
[2021-10-09] MEDS: LEVOTHYROXINE 75MCG TABLET (0.075MG) PO SCH (06:49)
[2021-10-09 07:22] LABS: CALCIUM LEVEL 7.9 MG/DL (8.8-10.2); CREATININE FOR GFR 1.42 MG/DL (0.55-1.30); GLOMERULAR FILTRATION RATE 38.3 (>39); POTASSIUM SERUM 4.1 MEQ/L (3.5-5.1)
[2021-10-09] MEDS: TIOTROPIUM INHALER/CAPSULE (SPIRIVA) INH SCH (07:36)
[2021-10-09] MEDS: SYMBICORT 160/4.5MCG INHALER 6GM INH SCH (07:36)
[2021-10-09] MEDS: NS 1,000 ML IV SCH ×2 (07:58→19:47)
[2021-10-09] MEDS: IPRATROPIUM 0.5MG/ALBUTEROL 2.5MG INH SOL UD 3ML (DUONEB) NEB SCH ×3 (08:00→19:22)
[2021-10-09] MEDS: cefTRIAXone SOD 1 GM in D5W MINI-BAG PLUS 50 ML IV SCH (08:09)
[2021-10-09] MEDS ORDERED: FUROSEMIDE 20MG/2ML VIAL (J1940) IV ONE (08:15)
[2021-10-09] MEDS ORDERED: methylPREDNISolone 125MG 2ML VIAL IV ONE (08:15)
[2021-10-09] MEDS ORDERED: NICOTINE 21MG/24HR 1 EA TRANSDERMAL TD SCH (09:00)
[2021-10-09 09:43] LABS: INR 0.96; PROTHROMBIN TIME 13.2 SECONDS (12.7-14.5)
[2021-10-09 09:44] LABS: PARTIAL THROMBOPLASTIN TIME 33.1 SECONDS (25.9-37.0)
[2021-10-09] MEDS: DULoxetine 30MG CAPSULE (CYMBALTA) PO SCH (09:45)
[2021-10-09] MEDS: NICOTINE 21MG/24HR 1 EA TRANSDERMAL TD SCH (09:45)
[2021-10-09] MEDS: DOXYCYCLINE HYCLATE 100 MG in D5W MINI-BAG PLUS 100 ML IV SCH ×2 (09:46→21:38)
[2021-10-09 10:26] LABS: ALBUMIN 2.1 GM/DL (3.2-5.2); BILIRUBIN,TOTAL 0.2 MG/DL (0.2-1.0); CALCIUM LEVEL 8.1 MG/DL (8.8-10.2); CREATININE FOR GFR 1.43 MG/DL (0.55-1.30); POTASSIUM SERUM 3.8 MEQ/L (3.5-5.1); TOTAL PROTEIN 5.4 GM/DL (6.4-8.2)
[2021-10-09] MEDS ORDERED: GLUCAGON INJ 1MG VIAL SC PRN (10:30)
[2021-10-09] MEDS: **hydrALAZINE** 50 MG TAB PO SCH ×2 (11:49→20:21)
[2021-10-09] MEDS: BACITRACIN OINTMENT 30GM TUBE TOP SCH ×2 (11:49→18:21)
[2021-10-09] MEDS: INSULIN LISPRO (NovoLOG) PER UNIT SC SCH ×3 (11:50→20:20)
[2021-10-09] MEDS: PANTOPRAZOLE 40MG VIAL IV SCH ×2 (11:52→20:21)
[2021-10-09] MEDS: HEPARIN SOD (PORCINE) 5000UNITS/ML 1ML VIAL/SYRINGE SQ SCH ×2 (14:06→21:38)
[2021-10-09] MEDS: GABAPENTIN 100 MG CAP PO SCH (17:04)
[2021-10-09] MEDS: ATORVASTATIN 20 MG TAB PO SCH (17:04)
[2021-10-09] MEDS: methylPREDNISolone 40MG 1ML VIAL IV SCH (17:05)
[2021-10-09] MEDS: MORPHINE 2 MG/ML 1ML VIAL IV PRN (17:13)
[2021-10-09] MEDS: BUDESONIDE 0.5 MG/2 ML INHALATION SUSPENSION INH SCH (19:22)
[2021-10-09] MEDS ORDERED: DIMETHICONE 2% OINTMENT(VANICREAM) 70GM TUBE TOP SCH (21:00)
[2021-10-09] MEDS ORDERED: DIAPER RELIEF PASTE (DESITIN) 60GM TOP PRN (21:10)
[2021-10-10] VITALS (23 sets, daily range): BP systolic 102–186; BP diastolic 57–116; O2SAT 100
[2021-10-10] MEDS: methylPREDNISolone 40MG 1ML VIAL IV SCH ×2 (00:46→09:31)
[2021-10-10] MEDS: IPRATROPIUM 0.5MG/ALBUTEROL 2.5MG INH SOL UD 3ML (DUONEB) NEB SCH ×5 (02:42→19:40)
[2021-10-10] MEDS: NS 1,000 ML IV SCH (05:17)
[2021-10-10] MEDS: LEVOTHYROXINE 75MCG TABLET (0.075MG) PO SCH (05:17)
[2021-10-10] MEDS: HEPARIN SOD (PORCINE) 5000UNITS/ML 1ML VIAL/SYRINGE SQ SCH ×3 (05:18→21:11)
[2021-10-10] MEDS ORDERED: POLYVINYL ALCOHOL OPHTH SOLN 15 ML(LIQUITEARS) OU PRN (05:45)
[2021-10-10] MEDS ORDERED: methylPREDNISolone 40MG 1ML VIAL IV SCH (05:50)
[2021-10-10 07:14] LABS: BASO % 0.1 % (0.0-1.0); HEMATOCRIT 31.3 % (36.0-47.0); HEMOGLOBIN 10.3 g/dl (12.0-15.5); LYMPH # 0.2 10^3/uL (1.5-5.0); LYMPH % 2.1 % (24.0-44.0); MEAN CORPUSCULAR HEMOGLOBIN 31.7 pg (27.0-33.0); MEAN CORPUSCULAR HGB CONC 32.9 g/dl (32.0-36.5); MEAN CORPUSCULAR VOLUME 96.3 fl (80.0-96.0); MONO # 0.1 10^3/uL (0.0-0.8); MONO % 1.2 % (2.0-8.0); NEUTROPHILS # 7.3 10^3/uL (1.5-8.5); NEUTROPHILS % 95.9 % (36.0-66.0); RED BLOOD COUNT 3.25 10^6/uL (4.00-5.40); WHITE BLOOD COUNT 7.7 10^3/uL (4.0-10.0)
[2021-10-10 07:19] LABS: PLATELET COUNT, AUTOMATED 91 10^3/uL (150-450)
[2021-10-10 07:50] LABS: BILIRUBIN,TOTAL 0.4 MG/DL (0.2-1.0); CREATININE FOR GFR 1.31 MG/DL (0.55-1.30); TOTAL PROTEIN 5.2 GM/DL (6.4-8.2)
[2021-10-10] MEDS: TIOTROPIUM INHALER/CAPSULE (SPIRIVA) INH SCH ×2 (08:05→11:32)
[2021-10-10] MEDS: BUDESONIDE 0.5 MG/2 ML INHALATION SUSPENSION INH SCH ×2 (08:05→19:40)
[2021-10-10] MEDS: INSULIN LISPRO (NovoLOG) PER UNIT SC SCH ×4 (08:31→21:09)
[2021-10-10] MEDS: NYSTATIN 100,000 UNITS/GM TOPICAL PWD 15 GM TOP SCH (09:30)
[2021-10-10] MEDS: cefTRIAXone SOD 1 GM in D5W MINI-BAG PLUS 50 ML IV SCH (09:31)
[2021-10-10] MEDS: BACITRACIN OINTMENT 30GM TUBE TOP SCH (09:31)
[2021-10-10] MEDS: MORPHINE 2 MG/ML 1ML VIAL IV PRN (09:32)
[2021-10-10] MEDS: PANTOPRAZOLE 40MG VIAL IV SCH ×2 (09:32→21:09)
[2021-10-10] MEDS: **hydrALAZINE** 50 MG TAB PO SCH ×2 (09:33→21:09)
[2021-10-10] MEDS: NICOTINE 21MG/24HR 1 EA TRANSDERMAL TD SCH (09:33)
[2021-10-10] MEDS: DULoxetine 30MG CAPSULE (CYMBALTA) PO SCH (09:33)
[2021-10-10] MEDS: DOXYCYCLINE HYCLATE 100 MG in D5W MINI-BAG PLUS 100 ML IV SCH ×2 (11:15→21:09)
[2021-10-10] MEDS: PERCOCET 5MG/325MG TAB PO PRN (15:59)
[2021-10-10] MEDS: GABAPENTIN 100 MG CAP PO SCH (18:11)
[2021-10-10] MEDS: ATORVASTATIN 20 MG TAB PO SCH (18:11)
[2021-10-10] MEDS: SILVER SULFADIAZINE 1% CR 50 GM JAR TOP SCH (21:11)
[2021-10-11] VITALS (13 sets, daily range): BP systolic 131–179; BP diastolic 51–79
[2021-10-11] MEDS ORDERED: hydrALAZINE 20MG/ML 1ML VIAL (J0360 PER 20MG) IV ONE (00:10)
[2021-10-11] MEDS: IPRATROPIUM 0.5MG/ALBUTEROL 2.5MG INH SOL UD 3ML (DUONEB) NEB SCH ×4 (00:56→19:54)
[2021-10-11] MEDS ORDERED: MAG SULF 1GM/100ML (MAG RUN) 1 GM in IV 1 EA IV ONE (03:10)
[2021-10-11 04:50] LABS: BASO % 0.1 % (0.0-1.0); HEMATOCRIT 30.9 % (36.0-47.0); HEMOGLOBIN 9.9 g/dl (12.0-15.5); LYMPH # 0.3 10^3/uL (1.5-5.0); LYMPH % 2.6 % (24.0-44.0); MEAN CORPUSCULAR VOLUME 96.9 fl (80.0-96.0); MONO # 1.1 10^3/uL (0.0-0.8); MONO % 9.7 % (2.0-8.0); NEUTROPHILS # 10.2 10^3/uL (1.5-8.5); NEUTROPHILS % 86.7 % (36.0-66.0); PLATELET COUNT, AUTOMATED 114 10^3/uL (150-450); RED BLOOD COUNT 3.19 10^6/uL (4.00-5.40); WHITE BLOOD COUNT 11.8 10^3/uL (4.0-10.0)
[2021-10-11 05:20] LABS: ALBUMIN 2.2 GM/DL (3.2-5.2); BILIRUBIN,TOTAL 0.2 MG/DL (0.2-1.0); CALCIUM LEVEL 7.9 MG/DL (8.8-10.2); CREATININE FOR GFR 1.31 MG/DL (0.55-1.30); TOTAL PROTEIN 4.9 GM/DL (6.4-8.2)
[2021-10-11] MEDS: LEVOTHYROXINE 75MCG TABLET (0.075MG) PO SCH (06:23)
[2021-10-11] MEDS: HEPARIN SOD (PORCINE) 5000UNITS/ML 1ML VIAL/SYRINGE SQ SCH (06:23)
[2021-10-11 07:13] LABS: MAGNESIUM LEVEL 1.5 MG/DL (1.8-2.4)
[2021-10-11] MEDS: BUDESONIDE 0.5 MG/2 ML INHALATION SUSPENSION INH SCH ×2 (07:27→19:55)
[2021-10-11] MEDS: TIOTROPIUM INHALER/CAPSULE (SPIRIVA) INH SCH (07:29)
[2021-10-11] MEDS: INSULIN LISPRO (NovoLOG) PER UNIT SC SCH ×4 (07:30→20:00)
[2021-10-11] MEDS ORDERED: methylPREDNISolone 40MG 1ML VIAL IV SCH (09:00)
[2021-10-11] MEDS: cefTRIAXone SOD 1 GM in D5W MINI-BAG PLUS 50 ML IV SCH (09:53)
[2021-10-11] MEDS: NICOTINE 21MG/24HR 1 EA TRANSDERMAL TD SCH (09:53)
[2021-10-11] MEDS: PANTOPRAZOLE 40MG VIAL IV SCH ×2 (09:53→20:12)
[2021-10-11] MEDS: predniSONE 20 MG TAB PO SCH (09:53)
[2021-10-11] MEDS: DULoxetine 30MG CAPSULE (CYMBALTA) PO SCH (09:53)
[2021-10-11] MEDS: BACITRACIN OINTMENT 30GM TUBE TOP SCH (09:54)
[2021-10-11] MEDS: SILVER SULFADIAZINE 1% CR 50 GM JAR TOP SCH ×2 (09:55→20:13)
[2021-10-11] MEDS: NYSTATIN 100,000 UNITS/GM TOPICAL PWD 15 GM TOP SCH (09:55)
[2021-10-11] MEDS: DOXYCYCLINE HYCLATE 100 MG in D5W MINI-BAG PLUS 100 ML IV SCH (09:56)
[2021-10-11] MEDS: **hydrALAZINE** 50 MG TAB PO SCH ×2 (10:06→20:10)
[2021-10-11] MEDS: MORPHINE 2 MG/ML 1ML VIAL IV PRN (15:23)
[2021-10-11] MEDS: GABAPENTIN 100 MG CAP PO SCH (17:06)
[2021-10-11] MEDS: ATORVASTATIN 20 MG TAB PO SCH (17:06)
[2021-10-11] MEDS: LevoFLOXacin 750 MG TABLET PO SCH (20:10)
[2021-10-11] MEDS: PERCOCET 5MG/325MG TAB PO PRN (20:12)
[2021-10-12] MEDS: IPRATROPIUM 0.5MG/ALBUTEROL 2.5MG INH SOL UD 3ML (DUONEB) NEB SCH ×5 (02:58→20:36)
[2021-10-12] MEDS: PERCOCET 5MG/325MG TAB PO PRN ×2 (03:15→16:10)
[2021-10-12 04:00] VITALS: BP 165/72
[2021-10-12 04:54] LABS: BASO % 0.2 % (0.0-1.0); EOS % 0.1 % (0.0-3.0); HEMATOCRIT 31.5 % (36.0-47.0); HEMOGLOBIN 9.9 g/dl (12.0-15.5); LYMPH # 0.3 10^3/uL (1.5-5.0); LYMPH % 3.1 % (24.0-44.0); MEAN CORPUSCULAR HEMOGLOBIN 31.4 pg (27.0-33.0); MEAN CORPUSCULAR HGB CONC 31.4 g/dl (32.0-36.5); MONO # 0.4 10^3/uL (0.0-0.8); MONO % 4.3 % (2.0-8.0); NEUTROPHILS # 8.2 10^3/uL (1.5-8.5); NEUTROPHILS % 90.4 % (36.0-66.0); PLATELET COUNT, AUTOMATED 102 10^3/uL (150-450); RED BLOOD COUNT 3.15 10^6/uL (4.00-5.40); WHITE BLOOD COUNT 9.1 10^3/uL (4.0-10.0)
[2021-10-12] MEDS: LEVOTHYROXINE 75MCG TABLET (0.075MG) PO SCH (06:03)
[2021-10-12] MEDS ORDERED: ISOSORBIDE DIN. (ISORDIL) 20 MG TAB PO ONE (06:10)
[2021-10-12 07:00] VITALS: BP 165/70
[2021-10-12] MEDS: BUDESONIDE 0.5 MG/2 ML INHALATION SUSPENSION INH SCH ×2 (07:34→20:36)
[2021-10-12] MEDS: TIOTROPIUM INHALER/CAPSULE (SPIRIVA) INH SCH (07:34)
[2021-10-12] MEDS: PANTOPRAZOLE 40MG VIAL IV SCH ×2 (08:05→20:40)
[2021-10-12] MEDS: INSULIN LISPRO (NovoLOG) PER UNIT SC SCH ×4 (08:05→20:42)
[2021-10-12] MEDS: NICOTINE 21MG/24HR 1 EA TRANSDERMAL TD SCH (08:06)
[2021-10-12] MEDS: DULoxetine 30MG CAPSULE (CYMBALTA) PO SCH (08:06)
[2021-10-12] MEDS: predniSONE 20 MG TAB PO SCH ×3 (08:06→20:41)
[2021-10-12] MEDS: **hydrALAZINE** 50 MG TAB PO SCH ×2 (08:07→20:41)
[2021-10-12] MEDS: NYSTATIN 100,000 UNITS/GM TOPICAL PWD 15 GM TOP SCH (08:08)
[2021-10-12] MEDS: BACITRACIN OINTMENT 30GM TUBE TOP SCH (08:08)
[2021-10-12] MEDS: SILVER SULFADIAZINE 1% CR 50 GM JAR TOP SCH ×2 (08:08→20:40)
[2021-10-12] MEDS ORDERED: IPRATROPIUM 0.5MG/ALBUTEROL 2.5MG INH SOL UD 3ML (DUONEB) NEB PRN (08:15)
[2021-10-12] MEDS ORDERED: predniSONE 20 MG TAB PO ONE (08:50)
[2021-10-12] MEDS: GLUCOSE 4GM CHEW TABLET PO PRN (11:43)
[2021-10-12 12:00] VITALS: BP 127/58
[2021-10-12] MEDS: ISOSORBIDE DIN. (ISORDIL) 20 MG TAB PO SCH ×2 (12:00→17:42)
[2021-10-12 15:20] VITALS: BP 157/70
[2021-10-12] MEDS: GABAPENTIN 100 MG CAP PO SCH (16:09)
[2021-10-12] MEDS: ATORVASTATIN 20 MG TAB PO SCH (16:09)
[2021-10-12] MEDS: HEPARIN SOD (PORCINE) 5000UNITS/ML 1ML VIAL/SYRINGE SQ SCH ×3 (16:11→20:42)
[2021-10-12 20:00] VITALS: BP 145/62
[2021-10-12] MEDS ORDERED: LEVEMIR (INSULIN DETEMIR) 1 UNITS/0.01ML SC SCH (21:00)
[2021-10-13] MEDS: IPRATROPIUM 0.5MG/ALBUTEROL 2.5MG INH SOL UD 3ML (DUONEB) NEB SCH ×10 (00:22→23:45)
[2021-10-13 06:00] VITALS: BP 169/75
[2021-10-13] MEDS: GLUCOSE 4GM CHEW TABLET PO PRN (06:27)
[2021-10-13] MEDS: LEVOTHYROXINE 75MCG TABLET (0.075MG) PO SCH (06:28)
[2021-10-13] MEDS: HEPARIN SOD (PORCINE) 5000UNITS/ML 1ML VIAL/SYRINGE SQ SCH ×3 (06:28→21:46)
[2021-10-13] MEDS: ISOSORBIDE DIN. (ISORDIL) 20 MG TAB PO SCH (06:28)
[2021-10-13 06:43] LABS: BASO % 0.1 % (0.0-1.0); HEMATOCRIT 28.5 % (36.0-47.0); HEMOGLOBIN 9.2 g/dl (12.0-15.5); LYMPH # 0.2 10^3/uL (1.5-5.0); LYMPH % 2.1 % (24.0-44.0); MEAN CORPUSCULAR HEMOGLOBIN 31.5 pg (27.0-33.0); MEAN CORPUSCULAR HGB CONC 32.3 g/dl (32.0-36.5); MEAN CORPUSCULAR VOLUME 97.6 fl (80.0-96.0); MONO # 0.1 10^3/uL (0.0-0.8); MONO % 1.2 % (2.0-8.0); NEUTROPHILS # 8.8 10^3/uL (1.5-8.5); PLATELET COUNT, AUTOMATED 113 10^3/uL (150-450); RED BLOOD COUNT 2.92 10^6/uL (4.00-5.40); WHITE BLOOD COUNT 9.2 10^3/uL (4.0-10.0)
[2021-10-13] MEDS: INSULIN LISPRO (NovoLOG) PER UNIT SC SCH ×4 (07:30→21:47)
[2021-10-13] MEDS: TIOTROPIUM INHALER/CAPSULE (SPIRIVA) INH SCH (08:11)
[2021-10-13] MEDS: BUDESONIDE 0.5 MG/2 ML INHALATION SUSPENSION INH SCH ×2 (08:11→19:39)
[2021-10-13] MEDS: NYSTATIN 100,000 UNITS/GM TOPICAL PWD 15 GM TOP SCH ×2 (09:00→13:17)
[2021-10-13] MEDS: PANTOPRAZOLE 40MG TAB (PROTONIX) PO SCH ×2 (09:13→19:45)
[2021-10-13] MEDS: predniSONE 20 MG TAB PO SCH ×3 (09:13→19:45)
[2021-10-13] MEDS: DULoxetine 30MG CAPSULE (CYMBALTA) PO SCH (09:13)
[2021-10-13] MEDS: **hydrALAZINE** 50 MG TAB PO SCH (09:13)
[2021-10-13] MEDS: PERCOCET 5MG/325MG TAB PO PRN (09:14)
[2021-10-13] MEDS: NICOTINE 21MG/24HR 1 EA TRANSDERMAL TD SCH (09:15)
[2021-10-13] MEDS: SILVER SULFADIAZINE 1% CR 50 GM JAR TOP SCH ×2 (09:16→19:45)
[2021-10-13] MEDS: BACITRACIN OINTMENT 30GM TUBE TOP SCH (09:17)
[2021-10-13] MEDS ORDERED: ISOSORBIDE DIN. (ISORDIL) 30 MG TAB PO SCH (16:00)
[2021-10-13 16:28] LABS: ABG BASE EXCESS 0.4 (-2.0-2.0); ABG HCO3 25.2 MEQ/L (22.0-26.0); ABG O2 SATURATION 84.9 % (95.0-99.0); ABG PARTIAL PRESSURE CO2 41.6 mmHg (35.0-45.0); ABG PARTIAL PRESSURE O2 46.6 mmHg (75.0-100.0); ABG STANDARD HCO3 24.6 MEQ/L (22.0-26.0); ABG TOTAL CO2 26.5 MEQ/L (23.0-31.0); ABG pH (ARTERIAL) 7.401 UNITS (7.350-7.450)
[2021-10-13 17:14] LABS: BASO % 0.1 % (0.0-1.0); HEMATOCRIT 27.2 % (36.0-47.0); LYMPH # 0.2 10^3/uL (1.5-5.0); MEAN CORPUSCULAR HEMOGLOBIN 31.9 pg (27.0-33.0); MEAN CORPUSCULAR HGB CONC 33.1 g/dl (32.0-36.5); MEAN CORPUSCULAR VOLUME 96.5 fl (80.0-96.0); MONO # 0.3 10^3/uL (0.0-0.8); MONO % 2.4 % (2.0-8.0); NEUTROPHILS # 10.9 10^3/uL (1.5-8.5); NEUTROPHILS % 93.6 % (36.0-66.0); PLATELET COUNT, AUTOMATED 121 10^3/uL (150-450); RED BLOOD COUNT 2.82 10^6/uL (4.00-5.40); WHITE BLOOD COUNT 11.6 10^3/uL (4.0-10.0)
[2021-10-13] MEDS: ATORVASTATIN 20 MG TAB PO SCH (17:50)
[2021-10-13] MEDS: GABAPENTIN 100 MG CAP PO SCH (17:50)
[2021-10-13] MEDS ORDERED: NITROGLYCERIN 2% OINT 1 GM *U/D* PKT TOP SCH (18:00)
[2021-10-13 18:19] LABS: ALBUMIN 2.5 GM/DL (3.2-5.2); BILIRUBIN,TOTAL 0.3 MG/DL (0.2-1.0); C REACTIVE PROTEIN QUANTITATIV 0.75 MG/DL (0.00-0.30); CALCIUM LEVEL 8.1 MG/DL (8.8-10.2); CREATININE FOR GFR 1.4 MG/DL (0.55-1.30); GLOMERULAR FILTRATION RATE 38.9 (>39); MAGNESIUM LEVEL 1.5 MG/DL (1.8-2.4); POTASSIUM SERUM 5.5 MEQ/L (3.5-5.1); THYROID STIMULATING HORMONE 3.59 uIU/ML (0.358-3.740); TOTAL PROTEIN 5.2 GM/DL (6.4-8.2)
[2021-10-13] MEDS ORDERED: NS 1,000 ML IV SCH (18:30)
[2021-10-13 18:53] VITALS: BP 148/68
[2021-10-13] MEDS ORDERED: MAG SULF 1GM/100ML (MAG RUN) 1 GM in IV 1 EA IV ONE (19:00)
[2021-10-13] MEDS ORDERED: CALCIUM GLUCONATE 1,000 MG in D5W MINI-BAG PLUS 100 ML IV ONE (19:00)
[2021-10-13] MEDS: NITROGLYCERIN 2% OINT 1 GM *U/D* PKT TOP SCH (19:47)
[2021-10-13] MEDS: LevoFLOXacin 750 MG TABLET PO SCH (19:48)
[2021-10-13 20:00] VITALS: BP 145/66
[2021-10-13] MEDS ORDERED: PATIROMER SORBITEX CALCIUM 8.4 GM POWDER PACKET (VELTASSA) PO ONE (20:00)
[2021-10-13] MEDS ORDERED: LEVEMIR (INSULIN DETEMIR) 1 UNITS/0.01ML SC SCH (21:00)
[2021-10-13 21:30] VITALS: BP 148/66
[2021-10-13 22:16] LABS: ABG BASE EXCESS -0.9 (-2.0-2.0); ABG HCO3 23.3 MEQ/L (22.0-26.0); ABG O2 SATURATION 90.6 % (95.0-99.0); ABG PARTIAL PRESSURE CO2 36.7 mmHg (35.0-45.0); ABG PARTIAL PRESSURE O2 57.8 mmHg (75.0-100.0); ABG STANDARD HCO3 23.6 MEQ/L (22.0-26.0); ABG TOTAL CO2 24.5 MEQ/L (23.0-31.0); ABG pH (ARTERIAL) 7.421 UNITS (7.350-7.450)
[2021-10-14] VITALS (7 sets, daily range): BP systolic 104–173; BP diastolic 54–77
[2021-10-14] MEDS: **hydrALAZINE** 50 MG TAB PO SCH ×4 (00:25→21:10)
[2021-10-14] MEDS: IPRATROPIUM 0.5MG/ALBUTEROL 2.5MG INH SOL UD 3ML (DUONEB) NEB SCH ×5 (03:12→19:44)
[2021-10-14] MEDS: DEXTROSE 50% 50 ML SYRINGE IV PRN ×2 (04:57→04:58)
[2021-10-14 05:05] LABS: ABG BASE EXCESS -0.8 (-2.0-2.0); ABG HCO3 24.6 MEQ/L (22.0-26.0); ABG O2 SATURATION 90.9 % (95.0-99.0); ABG PARTIAL PRESSURE CO2 44.2 mmHg (35.0-45.0); ABG PARTIAL PRESSURE O2 63.6 mmHg (75.0-100.0); ABG STANDARD HCO3 23.7 MEQ/L (22.0-26.0); ABG pH (ARTERIAL) 7.364 UNITS (7.350-7.450)
[2021-10-14] MEDS ORDERED: ALBUTEROL SULFATE 2.5 MG/0.5 ML INH NEB SOLN NEB ONE (05:05)
[2021-10-14] MEDS ORDERED: IPRATROPIUM 0.02% SOLN 0.5MG 2.5ML NEB NEB ONE (05:05)
[2021-10-14] MEDS ORDERED: SODIUM CHLORIDE 0.9% 1000ML IV ONE (05:05)
[2021-10-14 05:41] LABS: BASO % 0.2 % (0.0-1.0); HEMATOCRIT 26.1 % (36.0-47.0); HEMOGLOBIN 8.5 g/dl (12.0-15.5); LYMPH # 0.2 10^3/uL (1.5-5.0); LYMPH % 1.4 % (24.0-44.0); MEAN CORPUSCULAR HEMOGLOBIN 31.5 pg (27.0-33.0); MEAN CORPUSCULAR HGB CONC 32.6 g/dl (32.0-36.5); MEAN CORPUSCULAR VOLUME 96.7 fl (80.0-96.0); MONO # 0.5 10^3/uL (0.0-0.8); MONO % 3.7 % (2.0-8.0); NEUTROPHILS # 12.2 10^3/uL (1.5-8.5); NEUTROPHILS % 92.7 % (36.0-66.0); PLATELET COUNT, AUTOMATED 142 10^3/uL (150-450); WHITE BLOOD COUNT 13.2 10^3/uL (4.0-10.0)
[2021-10-14] MEDS: LEVOTHYROXINE 75MCG TABLET (0.075MG) PO SCH (06:00)
[2021-10-14 06:09] LABS: CALCIUM LEVEL 8.6 MG/DL (8.8-10.2); CREATININE FOR GFR 1.29 MG/DL (0.55-1.30); GLOMERULAR FILTRATION RATE 42.8 (>39); MAGNESIUM LEVEL 1.7 MG/DL (1.8-2.4); POTASSIUM SERUM 4.7 MEQ/L (3.5-5.1)
[2021-10-14] MEDS: HEPARIN SOD (PORCINE) 5000UNITS/ML 1ML VIAL/SYRINGE SQ SCH ×3 (06:23→21:09)
[2021-10-14] MEDS: BUDESONIDE 0.5 MG/2 ML INHALATION SUSPENSION INH SCH ×2 (07:25→19:44)
[2021-10-14] MEDS: TIOTROPIUM INHALER/CAPSULE (SPIRIVA) INH SCH (07:25)
[2021-10-14] MEDS: INSULIN LISPRO (NovoLOG) PER UNIT SC SCH ×4 (07:30→20:12)
[2021-10-14] MEDS ORDERED: MAG SULF 1GM/100ML (MAG RUN) 1 GM in IV 1 EA IV ONE (08:00)
[2021-10-14] MEDS: NITROGLYCERIN 2% OINT 1 GM *U/D* PKT TOP SCH ×2 (08:00→21:19)
[2021-10-14] MEDS: NICOTINE 21MG/24HR 1 EA TRANSDERMAL TD SCH (09:17)
[2021-10-14] MEDS: PANTOPRAZOLE 40MG TAB (PROTONIX) PO SCH ×2 (09:17→21:11)
[2021-10-14] MEDS: DULoxetine 30MG CAPSULE (CYMBALTA) PO SCH (09:17)
[2021-10-14] MEDS: predniSONE 20 MG TAB PO SCH ×2 (09:17→21:11)
[2021-10-14] MEDS: BACITRACIN OINTMENT 30GM TUBE TOP SCH (10:54)
[2021-10-14] MEDS: NYSTATIN 100,000 UNITS/GM TOPICAL PWD 15 GM TOP SCH (10:55)
[2021-10-14] MEDS: SILVER SULFADIAZINE 1% CR 50 GM JAR TOP SCH ×2 (10:55→21:11)
[2021-10-14] MEDS: GABAPENTIN 100 MG CAP PO SCH (17:39)
[2021-10-14] MEDS: ATORVASTATIN 20 MG TAB PO SCH (17:39)
[2021-10-14] MEDS: LEVEMIR (INSULIN DETEMIR) 1 UNITS/0.01ML SC SCH (21:10)
[2021-10-14] MEDS: RAMELTEON 8 MG TAB (ROZEREM) PO PRN (22:16)
[2021-10-15] VITALS (7 sets, daily range): BP systolic 90–184; BP diastolic 48–71
[2021-10-15] MEDS: IPRATROPIUM 0.5MG/ALBUTEROL 2.5MG INH SOL UD 3ML (DUONEB) NEB SCH ×7 (03:19→23:08)
[2021-10-15 04:19] LABS: BASO % 0.1 % (0.0-1.0); EOS % 0.1 % (0.0-3.0); HEMATOCRIT 30.6 % (36.0-47.0); HEMOGLOBIN 9.5 g/dl (12.0-15.5); LYMPH # 0.1 10^3/uL (1.5-5.0); LYMPH % 0.9 % (24.0-44.0); MEAN CORPUSCULAR HEMOGLOBIN 30.7 pg (27.0-33.0); MONO # 0.4 10^3/uL (0.0-0.8); MONO % 3.2 % (2.0-8.0); NEUTROPHILS # 13.2 10^3/uL (1.5-8.5); NEUTROPHILS % 95.1 % (36.0-66.0); PLATELET COUNT, AUTOMATED 105 10^3/uL (150-450); RED BLOOD COUNT 3.09 10^6/uL (4.00-5.40); WHITE BLOOD COUNT 13.9 10^3/uL (4.0-10.0)
[2021-10-15 04:54] LABS: CALCIUM LEVEL 8.2 MG/DL (8.8-10.2); CREATININE FOR GFR 1.45 MG/DL (0.55-1.30); GLOMERULAR FILTRATION RATE 37.4 (>39); POTASSIUM SERUM 5.6 MEQ/L (3.5-5.1)
[2021-10-15] MEDS ORDERED: HumuLIN R (REGULAR) INSULIN (NovoLIN R) **100U/ML** PER UNIT IV STA (05:35)
[2021-10-15] MEDS ORDERED: DEXTROSE 50% 50 ML SYRINGE IV STA (05:35)
[2021-10-15] MEDS ORDERED: PATIROMER SORBITEX CALCIUM 8.4 GM POWDER PACKET (VELTASSA) PO ONE (05:35)
[2021-10-15] MEDS ORDERED: CALCIUM CHLORIDE 10% 1 GM in D5W 100 ML IV ONE (05:35)
[2021-10-15] MEDS: LEVOTHYROXINE 75MCG TABLET (0.075MG) PO SCH (05:55)
[2021-10-15] MEDS: HEPARIN SOD (PORCINE) 5000UNITS/ML 1ML VIAL/SYRINGE SQ SCH ×2 (05:56→14:38)
[2021-10-15] MEDS: **hydrALAZINE** 50 MG TAB PO SCH ×2 (05:56→14:00)
[2021-10-15] MEDS: INSULIN LISPRO (NovoLOG) PER UNIT SC SCH ×4 (07:30→21:43)
[2021-10-15] MEDS: NICOTINE 21MG/24HR 1 EA TRANSDERMAL TD SCH (09:10)
[2021-10-15] MEDS: PANTOPRAZOLE 40MG TAB (PROTONIX) PO SCH ×2 (09:10→21:43)
[2021-10-15] MEDS: predniSONE 20 MG TAB PO SCH ×2 (09:10→21:42)
[2021-10-15] MEDS: DULoxetine 30MG CAPSULE (CYMBALTA) PO SCH (09:10)
[2021-10-15] MEDS: SILVER SULFADIAZINE 1% CR 50 GM JAR TOP SCH ×2 (09:12→21:44)
[2021-10-15] MEDS: BACITRACIN OINTMENT 30GM TUBE TOP SCH (09:12)
[2021-10-15] MEDS: NYSTATIN 100,000 UNITS/GM TOPICAL PWD 15 GM TOP SCH (09:13)
[2021-10-15] MEDS: TIOTROPIUM INHALER/CAPSULE (SPIRIVA) INH SCH (09:16)
[2021-10-15] MEDS: BUDESONIDE 0.5 MG/2 ML INHALATION SUSPENSION INH SCH ×2 (09:16→20:03)
[2021-10-15] MEDS: NITROGLYCERIN 2% OINT 1 GM *U/D* PKT TOP SCH (09:21)
[2021-10-15] MEDS: PERCOCET 5MG/325MG TAB PO PRN (12:06)
[2021-10-15] MEDS: SODIUM BICARBONATE 150 MEQ in STERILE WATER LITER BAG 1,000 ML IV SCH (12:41)
[2021-10-15 15:45] LABS: ABG BASE EXCESS -2.1 (-2.0-2.0); ABG HCO3 22.7 MEQ/L (22.0-26.0); ABG O2 SATURATION 92.7 % (95.0-99.0); ABG PARTIAL PRESSURE CO2 38.7 mmHg (35.0-45.0); ABG PARTIAL PRESSURE O2 69.4 mmHg (75.0-100.0); ABG STANDARD HCO3 22.6 MEQ/L (22.0-26.0); ABG TOTAL CO2 23.9 MEQ/L (23.0-31.0); ABG pH (ARTERIAL) 7.386 UNITS (7.350-7.450)
[2021-10-15 16:18] LABS: CALCIUM LEVEL 8.6 MG/DL (8.8-10.2); CREATININE FOR GFR 1.48 MG/DL (0.55-1.30); GLOMERULAR FILTRATION RATE 36.5 (>39); POTASSIUM SERUM 4.4 MEQ/L (3.5-5.1)
[2021-10-15] MEDS ORDERED: SODIUM CHLORIDE 0.9% 1000ML IV ONE (16:35)
[2021-10-15] MEDS ORDERED: MIDODRINE 5 MG TAB PO ONE (16:35)
[2021-10-15] MEDS: GABAPENTIN 100 MG CAP PO SCH (16:41)
[2021-10-15] MEDS: ATORVASTATIN 20 MG TAB PO SCH (16:41)
[2021-10-15 20:17] LABS: INR 0.96; PROTHROMBIN TIME 13.2 SECONDS (12.7-14.5)
[2021-10-15 20:18] LABS: PARTIAL THROMBOPLASTIN TIME 43.2 SECONDS (25.9-37.0)
[2021-10-15 20:20] LABS: D-DIMER QUANT 1854.8 ng/ml (<500)
[2021-10-15 20:37] LABS: CALCIUM LEVEL 8.6 MG/DL (8.8-10.2); CREATININE FOR GFR 1.44 MG/DL (0.55-1.30); GLOMERULAR FILTRATION RATE 37.7 (>39)
[2021-10-15] MEDS: LEVEMIR (INSULIN DETEMIR) 1 UNITS/0.01ML SC SCH (21:43)
[2021-10-16] VITALS (10 sets, daily range): BP systolic 109–168; BP diastolic 52–72; O2SAT 86–96
[2021-10-16 00:45] LABS: CALCIUM LEVEL 8.1 MG/DL (8.8-10.2); CREATININE FOR GFR 1.46 MG/DL (0.55-1.30); GLOMERULAR FILTRATION RATE 37.1 (>39); MAGNESIUM LEVEL 1.9 MG/DL (1.8-2.4); POTASSIUM SERUM 4.7 MEQ/L (3.5-5.1)
[2021-10-16] MEDS: IPRATROPIUM 0.5MG/ALBUTEROL 2.5MG INH SOL UD 3ML (DUONEB) NEB SCH ×6 (03:05→23:38)
[2021-10-16] MEDS: LEVOTHYROXINE 75MCG TABLET (0.075MG) PO SCH (05:35)
[2021-10-16 07:12] LABS: CALCIUM LEVEL 8.2 MG/DL (8.8-10.2); CREATININE FOR GFR 1.46 MG/DL (0.55-1.30); GLOMERULAR FILTRATION RATE 37.1 (>39); MAGNESIUM LEVEL 1.9 MG/DL (1.8-2.4); POTASSIUM SERUM 4.7 MEQ/L (3.5-5.1)
[2021-10-16] MEDS: TIOTROPIUM INHALER/CAPSULE (SPIRIVA) INH SCH (07:30)
[2021-10-16] MEDS: BUDESONIDE 0.5 MG/2 ML INHALATION SUSPENSION INH SCH ×2 (07:31→20:22)
[2021-10-16 08:43] LABS: HEMATOCRIT 26.2 % (36.0-47.0); HEMOGLOBIN 8.7 g/dl (12.0-15.5); MEAN CORPUSCULAR HGB CONC 33.2 g/dl (32.0-36.5); MEAN CORPUSCULAR VOLUME 96.3 fl (80.0-96.0); PLATELET COUNT, AUTOMATED 102 10^3/uL (150-450); RED BLOOD COUNT 2.72 10^6/uL (4.00-5.40); WHITE BLOOD COUNT 14.1 10^3/uL (4.0-10.0)
[2021-10-16] MEDS: SODIUM BICARBONATE 150 MEQ in STERILE WATER LITER BAG 1,000 ML IV SCH (10:03)
[2021-10-16] MEDS: NYSTATIN 100,000 UNITS/GM TOPICAL PWD 15 GM TOP SCH (10:05)
[2021-10-16] MEDS: INSULIN LISPRO (NovoLOG) PER UNIT SC SCH ×4 (10:05→20:36)
[2021-10-16] MEDS: SILVER SULFADIAZINE 1% CR 50 GM JAR TOP SCH ×2 (10:06→20:37)
[2021-10-16] MEDS: predniSONE 20 MG TAB PO SCH (10:08)
[2021-10-16] MEDS: NICOTINE 21MG/24HR 1 EA TRANSDERMAL TD SCH (10:08)
[2021-10-16] MEDS: DULoxetine 30MG CAPSULE (CYMBALTA) PO SCH (10:09)
[2021-10-16] MEDS: PANTOPRAZOLE 40MG TAB (PROTONIX) PO SCH ×2 (10:10→20:36)
[2021-10-16] MEDS: PERCOCET 5MG/325MG TAB PO PRN ×2 (10:12→16:22)
[2021-10-16] MEDS: BACITRACIN OINTMENT 30GM TUBE TOP SCH (10:13)
[2021-10-16] MEDS: GABAPENTIN 100 MG CAP PO SCH (16:19)
[2021-10-16] MEDS: ATORVASTATIN 20 MG TAB PO SCH (16:19)
[2021-10-16] MEDS: SPIRONOLACTONE 12.5MG PER 1/2 TABLET PO SCH (17:44)
[2021-10-16 17:45] LABS: FOLATE 19.7 NG/ML
[2021-10-16] MEDS: LEVEMIR (INSULIN DETEMIR) 1 UNITS/0.01ML SC SCH (20:36)
[2021-10-17] MEDS: IPRATROPIUM 0.5MG/ALBUTEROL 2.5MG INH SOL UD 3ML (DUONEB) NEB SCH ×6 (02:54→23:14)
[2021-10-17 04:00] VITALS: BP 100/57
[2021-10-17] MEDS: LEVOTHYROXINE 75MCG TABLET (0.075MG) PO SCH (05:38)
[2021-10-17 05:40] LABS: HEMATOCRIT 27.7 % (36.0-47.0); HEMOGLOBIN 8.8 g/dl (12.0-15.5); MEAN CORPUSCULAR HEMOGLOBIN 30.7 pg (27.0-33.0); MEAN CORPUSCULAR HGB CONC 31.8 g/dl (32.0-36.5); MEAN CORPUSCULAR VOLUME 96.5 fl (80.0-96.0); RED BLOOD COUNT 2.87 10^6/uL (4.00-5.40); WHITE BLOOD COUNT 13.5 10^3/uL (4.0-10.0)
[2021-10-17 05:56] LABS: PLATELET COUNT, AUTOMATED 84 10^3/uL (150-450)
[2021-10-17 06:04] LABS: CALCIUM LEVEL 8.2 MG/DL (8.8-10.2); CREATININE FOR GFR 1.46 MG/DL (0.55-1.30); GLOMERULAR FILTRATION RATE 37.1 (>39); MAGNESIUM LEVEL 1.9 MG/DL (1.8-2.4); POTASSIUM SERUM 5.1 MEQ/L (3.5-5.1)
[2021-10-17] MEDS: TIOTROPIUM INHALER/CAPSULE (SPIRIVA) INH SCH (07:43)
[2021-10-17] MEDS: BUDESONIDE 0.5 MG/2 ML INHALATION SUSPENSION INH SCH ×2 (07:43→19:58)
[2021-10-17 08:00] VITALS: BP 173/74
[2021-10-17] MEDS: NICOTINE 21MG/24HR 1 EA TRANSDERMAL TD SCH (08:26)
[2021-10-17] MEDS: PANTOPRAZOLE 40MG TAB (PROTONIX) PO SCH ×2 (08:27→21:19)
[2021-10-17] MEDS: DULoxetine 30MG CAPSULE (CYMBALTA) PO SCH (08:27)
[2021-10-17] MEDS: INSULIN LISPRO (NovoLOG) PER UNIT SC SCH ×4 (08:27→21:00)
[2021-10-17] MEDS: predniSONE 20 MG TAB PO SCH (08:27)
[2021-10-17] MEDS: PERCOCET 5MG/325MG TAB PO PRN ×4 (08:28→23:49)
[2021-10-17] MEDS: NYSTATIN 100,000 UNITS/GM TOPICAL PWD 15 GM TOP SCH (08:28)
[2021-10-17] MEDS: SILVER SULFADIAZINE 1% CR 50 GM JAR TOP SCH ×2 (08:28→21:20)
[2021-10-17] MEDS: BACITRACIN OINTMENT 30GM TUBE TOP SCH (08:29)
[2021-10-17] MEDS: SPIRONOLACTONE 12.5MG PER 1/2 TABLET PO SCH (08:29)
[2021-10-17] MEDS ORDERED: FUROSEMIDE 40MG/4ML VIAL (J1940) IV SCH (09:00)
[2021-10-17 12:22] VITALS: BP 174/77
[2021-10-17 16:00] VITALS: BP 122/60
[2021-10-17] MEDS: ATORVASTATIN 20 MG TAB PO SCH (17:41)
[2021-10-17] MEDS: GABAPENTIN 100 MG CAP PO SCH (17:41)
[2021-10-17 20:00] VITALS: BP 112/75
[2021-10-17] MEDS: LEVEMIR (INSULIN DETEMIR) 1 UNITS/0.01ML SC SCH (21:00)
[2021-10-17] MEDS: RAMELTEON 8 MG TAB (ROZEREM) PO PRN (22:40)
[2021-10-18] MEDS: IPRATROPIUM 0.5MG/ALBUTEROL 2.5MG INH SOL UD 3ML (DUONEB) NEB SCH ×6 (03:09→23:10)
[2021-10-18 04:00] VITALS: BP 108/70
[2021-10-18] MEDS: LEVOTHYROXINE 75MCG TABLET (0.075MG) PO SCH (05:56)
[2021-10-18 06:08] LABS: HEMATOCRIT 26.4 % (36.0-47.0); HEMOGLOBIN 8.6 g/dl (12.0-15.5); MEAN CORPUSCULAR HEMOGLOBIN 31.2 pg (27.0-33.0); MEAN CORPUSCULAR HGB CONC 32.6 g/dl (32.0-36.5); MEAN CORPUSCULAR VOLUME 95.7 fl (80.0-96.0); RED BLOOD COUNT 2.76 10^6/uL (4.00-5.40); WHITE BLOOD COUNT 15.4 10^3/uL (4.0-10.0)
[2021-10-18 06:17] LABS: PLATELET COUNT, AUTOMATED 95 10^3/uL (150-450)
[2021-10-18] MEDS: TIOTROPIUM INHALER/CAPSULE (SPIRIVA) INH SCH (07:25)
[2021-10-18] MEDS: BUDESONIDE 0.5 MG/2 ML INHALATION SUSPENSION INH SCH ×2 (07:25→19:15)
[2021-10-18 07:27] LABS: CALCIUM LEVEL 8.2 MG/DL (8.8-10.2); CREATININE FOR GFR 1.54 MG/DL (0.55-1.30); GLOMERULAR FILTRATION RATE 34.9 (>39); POTASSIUM SERUM 5.4 MEQ/L (3.5-5.1)
[2021-10-18 07:32] VITALS: BP 160/74
[2021-10-18] MEDS: PANTOPRAZOLE 40MG TAB (PROTONIX) PO SCH ×2 (08:04→20:22)
[2021-10-18] MEDS: predniSONE 20 MG TAB PO SCH (08:04)
[2021-10-18] MEDS: INSULIN LISPRO (NovoLOG) PER UNIT SC SCH ×4 (08:04→20:16)
[2021-10-18] MEDS: DULoxetine 30MG CAPSULE (CYMBALTA) PO SCH (08:05)
[2021-10-18] MEDS: NICOTINE 21MG/24HR 1 EA TRANSDERMAL TD SCH (08:06)
[2021-10-18] MEDS: FLUCONAZOLE 50MG TABLET PO SCH (08:06)
[2021-10-18] MEDS: BACITRACIN OINTMENT 30GM TUBE TOP SCH (08:07)
[2021-10-18] MEDS: SILVER SULFADIAZINE 1% CR 50 GM JAR TOP SCH ×2 (08:07→20:23)
[2021-10-18] MEDS: NYSTATIN 100,000 UNITS/GM TOPICAL PWD 15 GM TOP SCH (08:07)
[2021-10-18] MEDS ORDERED: TORSEMIDE 20 MG TAB PO SCH ×2 (09:00)
[2021-10-18] MEDS ORDERED: FUROSEMIDE 40MG/4ML VIAL (J1940) IV SCH (09:00)
[2021-10-18] MEDS: FUROSEMIDE 100MG/10ML VIAL (J1940) IV SCH ×2 (13:52→20:22)
[2021-10-18 16:02] VITALS: BP 140/69
[2021-10-18] MEDS: GABAPENTIN 100 MG CAP PO SCH (16:34)
[2021-10-18] MEDS: ATORVASTATIN 20 MG TAB PO SCH (16:34)
[2021-10-18] MEDS: PERCOCET 5MG/325MG TAB PO PRN ×2 (16:35→20:55)
[2021-10-18 20:00] VITALS: BP 178/80
[2021-10-18] MEDS ORDERED: LEVEMIR (INSULIN DETEMIR) 1 UNITS/0.01ML SC SCH (21:00)
[2021-10-19] MEDS ORDERED: LIDOCAINE 5% (LIDODERM) PATCH TD ONE (02:00)
[2021-10-19] MEDS: IPRATROPIUM 0.5MG/ALBUTEROL 2.5MG INH SOL UD 3ML (DUONEB) NEB SCH ×6 (02:55→23:06)
[2021-10-19] MEDS: FUROSEMIDE 100MG/10ML VIAL (J1940) IV SCH ×3 (03:24→20:46)
[2021-10-19 04:00] VITALS: BP 163/70
[2021-10-19 05:32] VITALS: BP 169/81
[2021-10-19] MEDS: LEVOTHYROXINE 75MCG TABLET (0.075MG) PO SCH (05:32)
[2021-10-19] MEDS: INSULIN LISPRO (NovoLOG) PER UNIT SC SCH ×4 (07:30→21:00)
[2021-10-19] MEDS: BUDESONIDE 0.5 MG/2 ML INHALATION SUSPENSION INH SCH ×2 (07:45→19:26)
[2021-10-19] MEDS: TIOTROPIUM INHALER/CAPSULE (SPIRIVA) INH SCH (07:46)
[2021-10-19 08:00] VITALS: BP 162/64
[2021-10-19 08:49] LABS: HEMATOCRIT 28.5 % (36.0-47.0); MEAN CORPUSCULAR HEMOGLOBIN 30.6 pg (27.0-33.0); MEAN CORPUSCULAR HGB CONC 31.6 g/dl (32.0-36.5); MEAN CORPUSCULAR VOLUME 96.9 fl (80.0-96.0); RED BLOOD COUNT 2.94 10^6/uL (4.00-5.40); WHITE BLOOD COUNT 15.2 10^3/uL (4.0-10.0)
[2021-10-19 08:50] LABS: PLATELET COUNT, AUTOMATED 91 10^3/uL (150-450)
[2021-10-19] MEDS ORDERED: metOLazone 5 MG TAB PO ONE (09:00)
[2021-10-19 09:32] LABS: CALCIUM LEVEL 8.5 MG/DL (8.8-10.2); CREATININE FOR GFR 1.4 MG/DL (0.55-1.30); GLOMERULAR FILTRATION RATE 38.9 (>39); POTASSIUM SERUM 5.4 MEQ/L (3.5-5.1)
[2021-10-19] MEDS: NICOTINE 21MG/24HR 1 EA TRANSDERMAL TD SCH (09:59)
[2021-10-19] MEDS: predniSONE 20 MG TAB PO SCH (09:59)
[2021-10-19] MEDS: FLUCONAZOLE 50MG TABLET PO SCH (09:59)
[2021-10-19] MEDS: PANTOPRAZOLE 40MG TAB (PROTONIX) PO SCH ×2 (10:00→20:46)
[2021-10-19] MEDS: BACITRACIN OINTMENT 30GM TUBE TOP SCH (10:00)
[2021-10-19] MEDS: DULoxetine 30MG CAPSULE (CYMBALTA) PO SCH (10:00)
[2021-10-19] MEDS: SILVER SULFADIAZINE 1% CR 50 GM JAR TOP SCH ×2 (10:01→20:46)
[2021-10-19] MEDS: NYSTATIN 100,000 UNITS/GM TOPICAL PWD 15 GM TOP SCH (10:01)
[2021-10-19 12:00] VITALS: BP 164/70
[2021-10-19] MEDS ORDERED: **NOTE PATIENT COMMENT** MISC XX SCH (14:00)
[2021-10-19 16:00] VITALS: BP 135/82
[2021-10-19] MEDS: GABAPENTIN 100 MG CAP PO SCH (17:34)
[2021-10-19] MEDS: ATORVASTATIN 20 MG TAB PO SCH (17:34)
[2021-10-19 20:00] VITALS: BP 151/70
[2021-10-20 04:00] VITALS: BP 176/68
[2021-10-20] MEDS: IPRATROPIUM 0.5MG/ALBUTEROL 2.5MG INH SOL UD 3ML (DUONEB) NEB SCH ×7 (04:00→23:18)
[2021-10-20] MEDS: FUROSEMIDE 100MG/10ML VIAL (J1940) IV SCH ×3 (04:02→21:18)
[2021-10-20] MEDS: LEVOTHYROXINE 75MCG TABLET (0.075MG) PO SCH (05:41)
[2021-10-20 07:08] LABS: HEMATOCRIT 26.3 % (36.0-47.0); HEMOGLOBIN 8.3 g/dl (12.0-15.5); MEAN CORPUSCULAR HEMOGLOBIN 30.3 pg (27.0-33.0); MEAN CORPUSCULAR HGB CONC 31.6 g/dl (32.0-36.5); PLATELET COUNT, AUTOMATED 78 10^3/uL (150-450); RED BLOOD COUNT 2.74 10^6/uL (4.00-5.40); WHITE BLOOD COUNT 11.7 10^3/uL (4.0-10.0)
[2021-10-20] MEDS: BUDESONIDE 0.5 MG/2 ML INHALATION SUSPENSION INH SCH ×3 (07:46→19:49)
[2021-10-20] MEDS: TIOTROPIUM INHALER/CAPSULE (SPIRIVA) INH SCH (07:46)
[2021-10-20 08:00] VITALS: BP 169/74
[2021-10-20] MEDS: DULoxetine 30MG CAPSULE (CYMBALTA) PO SCH (08:05)
[2021-10-20] MEDS: predniSONE 20 MG TAB PO SCH (08:05)
[2021-10-20] MEDS: PANTOPRAZOLE 40MG TAB (PROTONIX) PO SCH ×2 (08:05→21:18)
[2021-10-20] MEDS: INSULIN LISPRO (NovoLOG) PER UNIT SC SCH ×4 (08:05→21:00)
[2021-10-20] MEDS: NICOTINE 21MG/24HR 1 EA TRANSDERMAL TD SCH (08:07)
[2021-10-20] MEDS: PERCOCET 5MG/325MG TAB PO PRN (08:07)
[2021-10-20] MEDS: FLUCONAZOLE 50MG TABLET PO SCH (08:07)
[2021-10-20] MEDS: SILVER SULFADIAZINE 1% CR 50 GM JAR TOP SCH ×2 (08:07→21:19)
[2021-10-20] MEDS: NYSTATIN 100,000 UNITS/GM TOPICAL PWD 15 GM TOP SCH (08:09)
[2021-10-20] MEDS: BACITRACIN OINTMENT 30GM TUBE TOP SCH (08:10)
[2021-10-20 08:31] LABS: CALCIUM LEVEL 8.5 MG/DL (8.8-10.2); CREATININE FOR GFR 1.39 MG/DL (0.55-1.30); GLOMERULAR FILTRATION RATE 39.2 (>39)
[2021-10-20 12:00] VITALS: BP 181/83
[2021-10-20 16:00] VITALS: BP 161/75
[2021-10-20] MEDS: ATORVASTATIN 20 MG TAB PO SCH (17:16)
[2021-10-20] MEDS: GABAPENTIN 100 MG CAP PO SCH (17:16)
[2021-10-20 18:50] LABS: ABG HCO3 27.2 MEQ/L (22.0-26.0); ABG O2 SATURATION 90.8 % (95.0-99.0); ABG PARTIAL PRESSURE CO2 45.4 mmHg (35.0-45.0); ABG PARTIAL PRESSURE O2 63.7 mmHg (75.0-100.0); ABG STANDARD HCO3 26.1 MEQ/L (22.0-26.0); ABG TOTAL CO2 28.6 MEQ/L (23.0-31.0); ABG pH (ARTERIAL) 7.395 UNITS (7.350-7.450)
[2021-10-20 20:00] VITALS: BP 159/78
[2021-10-21] MEDS: IPRATROPIUM 0.5MG/ALBUTEROL 2.5MG INH SOL UD 3ML (DUONEB) NEB SCH ×5 (03:09→19:11)
[2021-10-21 04:00] VITALS: BP 139/66
[2021-10-21] MEDS: FUROSEMIDE 100MG/10ML VIAL (J1940) IV SCH ×3 (04:46→21:20)
[2021-10-21 04:59] LABS: VENOUS BASE EXCESS 3.6 (-2.0-2.0); VENOUS HCO3 30.4 MEQ/L (23.0-27.0); VENOUS O2 SATURATION 78.9 % (60.0-80.0); VENOUS PARTIAL PRESSURE CO2 58.7 mmHg (38.0-50.0); VENOUS PH 7.332 UNITS (7.330-7.430); VENOUS STANDARD HCO3 27.4 MEQ/L; VENOUS TOTAL CO2 32.2 MEQ/L (24.0-28.0)
[2021-10-21 05:13] LABS: HEMATOCRIT 27.4 % (36.0-47.0); HEMOGLOBIN 8.7 g/dl (12.0-15.5); MEAN CORPUSCULAR HEMOGLOBIN 31.1 pg (27.0-33.0); MEAN CORPUSCULAR HGB CONC 31.8 g/dl (32.0-36.5); MEAN CORPUSCULAR VOLUME 97.9 fl (80.0-96.0); WHITE BLOOD COUNT 8.9 10^3/uL (4.0-10.0)
[2021-10-21 05:15] LABS: PLATELET COUNT, AUTOMATED 75 10^3/uL (150-450)
[2021-10-21 05:44] LABS: ALBUMIN 2.4 GM/DL (3.2-5.2); BILIRUBIN,TOTAL 0.5 MG/DL (0.2-1.0); CALCIUM LEVEL 8.4 MG/DL (8.8-10.2); CREATININE FOR GFR 1.49 MG/DL (0.55-1.30); GLOMERULAR FILTRATION RATE 36.2 (>39); POTASSIUM SERUM 4.8 MEQ/L (3.5-5.1); TOTAL PROTEIN 4.8 GM/DL (6.4-8.2)
[2021-10-21] MEDS: LEVOTHYROXINE 75MCG TABLET (0.075MG) PO SCH (06:42)
[2021-10-21] MEDS: BUDESONIDE 0.5 MG/2 ML INHALATION SUSPENSION INH SCH ×2 (07:33→19:11)
[2021-10-21] MEDS: TIOTROPIUM INHALER/CAPSULE (SPIRIVA) INH SCH (07:33)
[2021-10-21 07:35] LABS: ABG BASE EXCESS 6.7 (-2.0-2.0); ABG HCO3 32.4 MEQ/L (22.0-26.0); ABG O2 SATURATION 79.4 % (95.0-99.0); ABG PARTIAL PRESSURE CO2 53.8 mmHg (35.0-45.0); ABG STANDARD HCO3 30.2 MEQ/L (22.0-26.0); ABG TOTAL CO2 34.1 MEQ/L (23.0-31.0); ABG pH (ARTERIAL) 7.398 UNITS (7.350-7.450)
[2021-10-21 07:37] LABS: ABG PARTIAL PRESSURE O2 44.9 mmHg (75.0-100.0)
[2021-10-21 08:25] VITALS: BP 174/84
[2021-10-21] MEDS: PANTOPRAZOLE 40MG TAB (PROTONIX) PO SCH ×2 (08:36→21:19)
[2021-10-21] MEDS: predniSONE 20 MG TAB PO SCH (08:36)
[2021-10-21] MEDS: DULoxetine 30MG CAPSULE (CYMBALTA) PO SCH (08:36)
[2021-10-21] MEDS: NICOTINE 21MG/24HR 1 EA TRANSDERMAL TD SCH (08:37)
[2021-10-21] MEDS: INSULIN LISPRO (NovoLOG) PER UNIT SC SCH ×4 (08:37→21:00)
[2021-10-21] MEDS: NYSTATIN 100,000 UNITS/GM TOPICAL PWD 15 GM TOP SCH (08:38)
[2021-10-21] MEDS: SILVER SULFADIAZINE 1% CR 50 GM JAR TOP SCH ×2 (08:38→21:21)
[2021-10-21] MEDS: BACITRACIN OINTMENT 30GM TUBE TOP SCH (08:38)
[2021-10-21 16:00] VITALS: BP 164/71
[2021-10-21] MEDS ORDERED: PILL CUTTER 1 EACH XX PRN (16:05)
[2021-10-21] MEDS: GABAPENTIN 100 MG CAP PO SCH (17:25)
[2021-10-21] MEDS: ATORVASTATIN 20 MG TAB PO SCH (17:25)
[2021-10-21 20:00] VITALS: BP 144/65
[2021-10-21] MEDS ORDERED: LEVEMIR (INSULIN DETEMIR) 1 UNITS/0.01ML SC SCH (21:00)
[2021-10-22 04:00] VITALS: BP 141/66
[2021-10-22] MEDS: FUROSEMIDE 100MG/10ML VIAL (J1940) IV SCH (04:39)
[2021-10-22] MEDS: LEVOTHYROXINE 75MCG TABLET (0.075MG) PO SCH (06:11)
[2021-10-22 06:32] LABS: HEMOGLOBIN 8.5 g/dl (12.0-15.5); MEAN CORPUSCULAR HEMOGLOBIN 31.7 pg (27.0-33.0); MEAN CORPUSCULAR HGB CONC 32.7 g/dl (32.0-36.5); PLATELET COUNT, AUTOMATED 100 10^3/uL (150-450); RED BLOOD COUNT 2.68 10^6/uL (4.00-5.40); WHITE BLOOD COUNT 10.5 10^3/uL (4.0-10.0)
[2021-10-22 07:27] VITALS: BP 104/55
[2021-10-22] MEDS: INSULIN LISPRO (NovoLOG) PER UNIT SC SCH (07:30)
[2021-10-22 07:38] LABS: ALBUMIN 2.1 GM/DL (3.2-5.2); BILIRUBIN,TOTAL 0.4 MG/DL (0.2-1.0); CALCIUM LEVEL 8.5 MG/DL (8.8-10.2); CREATININE FOR GFR 1.29 MG/DL (0.55-1.30); GLOMERULAR FILTRATION RATE 42.8 (>39); POTASSIUM SERUM 4.6 MEQ/L (3.5-5.1); TOTAL PROTEIN 4.7 GM/DL (6.4-8.2)
[2021-10-22] MEDS: DEXTROSE 50% 50 ML SYRINGE IV PRN (07:38)
[2021-10-22] MEDS: BUDESONIDE 0.5 MG/2 ML INHALATION SUSPENSION INH SCH ×2 (07:41→20:00)
[2021-10-22] MEDS: IPRATROPIUM 0.5MG/ALBUTEROL 2.5MG INH SOL UD 3ML (DUONEB) NEB SCH ×5 (07:41→20:00)
[2021-10-22] MEDS: TIOTROPIUM INHALER/CAPSULE (SPIRIVA) INH SCH (07:41)
[2021-10-22 08:16] LABS: ABG BASE EXCESS 13.3 (-2.0-2.0); ABG HCO3 37.5 MEQ/L (22.0-26.0); ABG O2 SATURATION 83.6 % (95.0-99.0); ABG PARTIAL PRESSURE CO2 46.4 mmHg (35.0-45.0); ABG STANDARD HCO3 36.8 MEQ/L (22.0-26.0); ABG TOTAL CO2 38.9 MEQ/L (23.0-31.0); ABG pH (ARTERIAL) 7.525 UNITS (7.350-7.450)
[2021-10-22 08:22] LABS: ABG PARTIAL PRESSURE O2 45.6 mmHg (75.0-100.0)
[2021-10-22 09:20] LABS: CK-MB VALUE MASS 1.6 NG/ML (<3.6); MB/CK RELATIVE INDEX 4.1 (< OR =4)
[2021-10-22] MEDS ORDERED: ONDANSETRON 4MG ORAL DISINTEGRATING TAB PO PRN (09:45)
[2021-10-22] MEDS: SILVER SULFADIAZINE 1% CR 50 GM JAR TOP SCH ×2 (09:47→20:42)
[2021-10-22] MEDS: NYSTATIN 100,000 UNITS/GM TOPICAL PWD 15 GM TOP SCH (09:47)
[2021-10-22] MEDS: DULoxetine 30MG CAPSULE (CYMBALTA) PO SCH (09:47)
[2021-10-22] MEDS: NICOTINE 21MG/24HR 1 EA TRANSDERMAL TD SCH (09:48)
[2021-10-22] MEDS: SCOPOLAMINE 1MG TRANSDERMAL PATCH TOP PRN (09:57)
[2021-10-22] MEDS: MORPHINE 10MG/0.5ML ORAL CONCENTRATE SOLUTION U/D SL PRN ×2 (09:57→13:39)
[2021-10-22] MEDS: LORazepam 1 MG TAB PO PRN ×2 (12:28→16:03)
[2021-10-22] MEDS: GABAPENTIN 100 MG CAP PO SCH (16:03)
[2021-10-23] MEDS: IPRATROPIUM 0.5MG/ALBUTEROL 2.5MG INH SOL UD 3ML (DUONEB) NEB SCH ×6 (04:00→20:00)
[2021-10-23] MEDS ORDERED: OLANZapine INTRAMUSCULAR 10MG VIAL IM ONE (05:35)
[2021-10-23] MEDS: TIOTROPIUM INHALER/CAPSULE (SPIRIVA) INH SCH (07:12)
[2021-10-23] MEDS: BUDESONIDE 0.5 MG/2 ML INHALATION SUSPENSION INH SCH ×2 (07:12→20:00)
[2021-10-23] MEDS: DULoxetine 30MG CAPSULE (CYMBALTA) PO SCH (08:20)
[2021-10-23] MEDS: NICOTINE 21MG/24HR 1 EA TRANSDERMAL TD SCH (08:33)
[2021-10-23] MEDS: NYSTATIN 100,000 UNITS/GM TOPICAL PWD 15 GM TOP SCH (08:33)
[2021-10-23] MEDS: SILVER SULFADIAZINE 1% CR 50 GM JAR TOP SCH ×2 (08:34→21:08)
[2021-10-23] MEDS: LORazepam 1 MG TAB PO PRN ×2 (12:20→21:06)
[2021-10-23] MEDS: GABAPENTIN 100 MG CAP PO SCH (17:00)
[2021-10-23] MEDS: MORPHINE 10MG/0.5ML ORAL CONCENTRATE SOLUTION U/D SL PRN (21:07)
[2021-10-24] MEDS: IPRATROPIUM 0.5MG/ALBUTEROL 2.5MG INH SOL UD 3ML (DUONEB) NEB SCH ×6 (03:43→20:00)
[2021-10-24] MEDS: TIOTROPIUM INHALER/CAPSULE (SPIRIVA) INH SCH ×2 (07:30→08:00)
[2021-10-24] MEDS: BUDESONIDE 0.5 MG/2 ML INHALATION SUSPENSION INH SCH ×2 (07:31→20:00)
[2021-10-24] MEDS: DULoxetine 30MG CAPSULE (CYMBALTA) PO SCH (09:00)
[2021-10-24] MEDS: MORPHINE 10MG/0.5ML ORAL CONCENTRATE SOLUTION U/D SL PRN ×2 (09:01→17:42)
[2021-10-24] MEDS: NICOTINE 21MG/24HR 1 EA TRANSDERMAL TD SCH (09:02)
[2021-10-24] MEDS: LORazepam 1 MG TAB PO PRN ×2 (09:02→23:16)
[2021-10-24] MEDS: SILVER SULFADIAZINE 1% CR 50 GM JAR TOP SCH ×2 (09:08→20:37)
[2021-10-24] MEDS: NYSTATIN 100,000 UNITS/GM TOPICAL PWD 15 GM TOP SCH (09:08)
[2021-10-24] MEDS: GABAPENTIN 100 MG CAP PO SCH (17:00)
[2021-10-24] MEDS: ATROPINE SULFATE 1% OP SOLN 2 ML BTL SL PRN (20:36)
[2021-10-25] MEDS: IPRATROPIUM 0.5MG/ALBUTEROL 2.5MG INH SOL UD 3ML (DUONEB) NEB SCH ×6 (03:04→20:00)
[2021-10-25] MEDS: MORPHINE 10MG/0.5ML ORAL CONCENTRATE SOLUTION U/D SL PRN ×4 (04:37→21:17)
[2021-10-25] MEDS: TIOTROPIUM INHALER/CAPSULE (SPIRIVA) INH SCH (08:00)
[2021-10-25] MEDS: BUDESONIDE 0.5 MG/2 ML INHALATION SUSPENSION INH SCH ×2 (08:00→20:00)
[2021-10-25] MEDS: NICOTINE 21MG/24HR 1 EA TRANSDERMAL TD SCH (08:41)
[2021-10-25] MEDS: NYSTATIN 100,000 UNITS/GM TOPICAL PWD 15 GM TOP SCH (08:41)
[2021-10-25] MEDS: SILVER SULFADIAZINE 1% CR 50 GM JAR TOP SCH ×2 (08:41→22:30)
[2021-10-25] MEDS: DULoxetine 30MG CAPSULE (CYMBALTA) PO SCH (08:42)
[2021-10-25] MEDS: LORazepam 1 MG TAB PO PRN ×4 (12:41→21:17)
[2021-10-25] MEDS: GABAPENTIN 100 MG CAP PO SCH (15:56)
[2021-10-25] MEDS ORDERED: MORPHINE 10MG/0.5ML ORAL CONCENTRATE SOLUTION U/D SL PRN (16:05)
[2021-10-25] MEDS: ATROPINE SULFATE 1% OP SOLN 2 ML BTL SL PRN (23:23)
[2021-10-26] MEDS: IPRATROPIUM 0.5MG/ALBUTEROL 2.5MG INH SOL UD 3ML (DUONEB) NEB SCH ×3 (00:19→07:59)
[2021-10-26] MEDS: MORPHINE 10MG/0.5ML ORAL CONCENTRATE SOLUTION U/D SL PRN ×2 (01:04→05:12)
[2021-10-26] MEDS: LORazepam 1 MG TAB PO PRN ×2 (01:04→05:11)
[2021-10-26] MEDS: SCOPOLAMINE 1MG TRANSDERMAL PATCH TOP PRN (05:11)
[2021-10-26] MEDS: ATROPINE SULFATE 1% OP SOLN 2 ML BTL SL PRN (06:20)
[2021-10-26] MEDS: TIOTROPIUM INHALER/CAPSULE (SPIRIVA) INH SCH (07:59)
[2021-10-26] MEDS: BUDESONIDE 0.5 MG/2 ML INHALATION SUSPENSION INH SCH (07:59)
[2021-10-26] MEDS: DULoxetine 30MG CAPSULE (CYMBALTA) PO SCH (09:00)
[2021-10-26] MEDS: NYSTATIN 100,000 UNITS/GM TOPICAL PWD 15 GM TOP SCH (09:00)
[2021-10-26] MEDS: SILVER SULFADIAZINE 1% CR 50 GM JAR TOP SCH (09:00)
[2021-10-26] MEDS: NICOTINE 21MG/24HR 1 EA TRANSDERMAL TD SCH (09:00)
== END 2021-10-26 09:02 | disposition expired | DRG 928 ==
LOC: M ED 13:39 → M ED INP 18:14 → M MSPAV 22:50 → OBSVTOIN 10-09 07:51 → M ICU 10-09 08:36 → M 4MAIN 10-12 15:20 → M PCU 10-14 05:32 → M MS5PR 10-23 09:59
PROVIDERS: ADMIT Internal Medicine Nephrology; ATTEND Family Medicine
PROC: 0WJQ8ZZ Inspection of Respiratory Tract, Via Natural or Artificial Opening Endoscopic Approach (ICD-10-PCS; principal; 2021-10-09)
DX: T20.30XA Burn of third degree of head, face, and neck, unspecified site, initial encounter (principal); J96.21 Acute and chronic respiratory failure with hypoxia; J18.9 Pneumonia, unspecified organism; I50.33 Acute on chronic diastolic (congestive) heart failure; S22.31XK Fracture of one rib, right side, subsequent encounter for fracture with nonunion; I13.0 Hypertensive heart and chronic kidney disease with heart failure and stage 1 through stage 4 chronic kidney disease, or unspecified chronic kidney disease; E46 Unspecified protein-calorie malnutrition; T23.322A Burn of third degree of single left finger (nail) except thumb, initial encounter; J44.1 Chronic obstructive pulmonary disease with (acute) exacerbation; J44.0 Chronic obstructive pulmonary disease with (acute) lower respiratory infection; N17.9 Acute kidney failure, unspecified; E87.2 Acidosis; B37.49 Other urogenital candidiasis; F33.2 Major depressive disorder, recurrent severe without psychotic features; T22.211A Burn of second degree of right forearm, initial encounter; Z51.5 Encounter for palliative care; N18.30 Chronic kidney disease, stage 3 unspecified; Z66 Do not resuscitate; Z99.81 Dependence on supplemental oxygen; E11.51 Type 2 diabetes mellitus with diabetic peripheral angiopathy without gangrene; K52.9 Noninfective gastroenteritis and colitis, unspecified; M48.061 Spinal stenosis, lumbar region without neurogenic claudication; T20.20XA Burn of second degree of head, face, and neck, unspecified site, initial encounter; R26.89 Other abnormalities of gait and mobility; R29.6 Repeated falls; F17.210 Nicotine dependence, cigarettes, uncomplicated; I27.20 Pulmonary hypertension, unspecified; R91.8 Other nonspecific abnormal finding of lung field; M51.26 Other intervertebral disc displacement, lumbar region; N26.1 Atrophy of kidney (terminal); I70.1 Atherosclerosis of renal artery; E11.22 Type 2 diabetes mellitus with diabetic chronic kidney disease; E78.5 Hyperlipidemia, unspecified; E03.9 Hypothyroidism, unspecified; F41.9 Anxiety disorder, unspecified; E11.649 Type 2 diabetes mellitus with hypoglycemia without coma; R41.89 Other symptoms and signs involving cognitive functions and awareness; W40.8XXA Explosion of other specified explosive materials, initial encounter; Y92.009 Unspecified place in unspecified non-institutional (private) residence as the place of occurrence of the external cause; E86.0 Dehydration; Y93.89 Activity, other specified; D53.9 Nutritional anemia, unspecified; Y99.8 Other external cause status; E87.5 Hyperkalemia; E83.39 Other disorders of phosphorus metabolism; R53.1 Weakness; I08.3 Combined rheumatic disorders of mitral, aortic and tricuspid valves; D69.6 Thrombocytopenia, unspecified; Z85.51 Personal history of malignant neoplasm of bladder; Z98.41 Cataract extraction status, right eye; Z98.42 Cataract extraction status, left eye; Z95.820 Peripheral vascular angioplasty status with implants and grafts; Z88.2 Allergy status to sulfonamides; Z59.00 Homelessness unspecified; Z88.1 Allergy status to other antibiotic agents; Z79.890 Hormone replacement therapy; Z79.899 Other long term (current) drug therapy; Z88.5 Allergy status to narcotic agent; Z88.8 Allergy status to other drugs, medicaments and biological substances